=== PATIENT | female | born 1985 | race African-American/Black ===

== ENCOUNTER 2016-04-12 11:25 | Emergency (ER) | payer MEDICAID ==
[~2016-04-12] VITALS: Ht 154.9 cm; Wt 100.3 kg
[~2016-04-12 11:25] MED LIST: ATOR10TA PO; BREX0.5T PO; CEFD300C3 PO; CEFU250T PO; DIAZ2TAB2 PO; DICY10CA12 PO; DICY10CA59 PO; DOCU100C PO; FERR-74 PO; FRS325T PO; GUAI120016 PO; HYDR-3781 PO; LACT1CAP62 PO; LURA80TA3; NITR-65 PO; OMEP-10 PO; OMEP20CA12 PO; OXC5T PO; OXYC-465 PO; RIVA20TA; RT-ALBUINH IH; TIZA2CAP7 PO; VALA1000
--- NOTE | 2016-04-12 12:30 | Diagnostic Imaging Report ---
INDICATION: Right ankle injury, pain. DISCUSSION: Three views of the right ankle were obtained, no comparison. No acute fracture, dislocation, or other osseous abnormality identified. No significant degenerative disease. Alignment is anatomic. Soft tissues are unremarkable. IMPRESSION: 1. Negative right ankle. Dictated by: Dictated on workstation # [id number]
[2016-04-12] MEDS ORDERED: NAPR500T3 PO (12:52)
--- NOTE | 2016-04-12 12:52 | ED Lower Extremity ---
General Chief Complaint: Lower Extremity Stated Complaint: R LEG OINJ Nursing Triage Note: TWISTED R ANKLE TODAY Nursing Sepsis Screen: No Definite Risk Source: patient History of Present Illness Time seen by provider: 12:02 Initial Comments PT STATES SHE TWISTED HER RIGHT ANKLE IMMEDIATELY PRIOR TO ARRIVAL STATS SHE WENT FOR A WALK AND DIDN'T SEE THAT THERE WAS A DITCH/WAS COVERED WITH GRASS, AND STEPPED DOWN AND TWISTED ANKLE NO OTHER INJURIES PT HAS HAD MULTIPLE INJURIES AND SURGERIES TO RIGHT LEG AND HAS FOOT DROP ON THE RIGHT. PCP: DR. NEVAREZ Allergies and Home Medications Allergies Coded Allergies: codeine (Verified Allergy, Severe, ITCHING, HIVES, SOA, 11/03/14) hydrocodone (Verified Allergy, Severe, THROAT SWELLING, PT HAS RECEIVED OXYCODONE IN THE PAST, 12/31/15) latex (Verified Allergy, Severe, BLISTERS, 11/03/14) penicillin (Verified Allergy, Severe, ITCHING, 11/03/14) Sulfa (Sulfonamide Antibiotics) (Verified Allergy, Unknown, RASH, 11/03/14) Home Medications Brexpiprazole 0.5 Mg Tablet #30 0.5 MG PO DAILY Prescribed by: HIEU YAP on 01/01/16 1202 Diazepam 2 Mg Tablet 2 MG PO TID PRN PRN SPASMS (Reported) Dicyclomine HCl 10 Mg Capsule 10 MG PO QID PRN PRN CRAMPS (Reported) Ferrous Sulfate 325 Mg Tablet 650 MG PO DAILY (Reported) TAKES 2 (325 MG) TABLETS Naproxen 500 Mg Tablet #20 500 MG PO BID Prescribed by: JUAN GONZALEZ on 04/12/16 1252 Omeprazole 20 Mg Capsule.dr 20 MG PO DAILY PRN PRN STOMACH UPSET (Reported) Oxycodone HCl/Acetaminophen 1 Each Tablet 1 TAB PO TID (Reported) Constitutional: no symptoms reported Musculoskeletal: see HPI Skin: no symptoms reported Psychiatric/Neurological: See HPI Past Xjnirje-Xbfwiu-Boismc Hx Patient Social History Type Used: Cigarettes Recent Foreign Travel: No Contact w/Someone Who Travel: No Recent Infectious Disease Expo: No Recent Hopitalizations: No Immunizations Up To Date Tetanus Booster (TDap): Less than 5yrs Date of Pneumonia Vaccine: Dec 10, 2014 Seasonal Allergies Seasonal Allergies: No Surgeries HX Surgeries: Yes (RIGHT LWR LEG FX/ORIF & FASCIOTOMY-12 SURG, TUBAL LIGATION, STERILIZATION. 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) Cardiac Disorders: Deep Vein Thrombosis Neurological Hx Neurological Disorders: Yes (2013, ) Neurological Disorders: Headaches /Migraines, Stroke 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 System Hx 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 Disorders: No EDI SPECIALIST History: 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 Genitourinary Hx Genitourinary Disorders: Yes Genitourinary Disorders: Kidney Stones Gastrointestinal Hx Gastrointestinal Disorders: Yes Gastrointestinal Disorders: Colitis Musculoskeletal Hx Musculoskeletal Disorders: Yes (CHRONIC NECK AND BACK PAIN, CHRONIC RIGHT LEG PAIN --RIGHT LEG FX'S WITH RIGHT FOOT DROP ) Musculoskeletal Disorders: Degenerate Disk Disease, Scoliosis, Chronic Back Pain, Fractures Endocrine Hx Endocrine Disorders: Yes Endocrine Disorders: Diabetes, Non-Insulin dep HEENT HX ENT Disorders: Yes ("LEGALLY BLIND" ) Loss of Vision: Bilateral Cancer Hx Cancer: No Psychosocial Hx Psychiatric Problems: No Behavioral Health Disorders: ADD/ADHD, Anxiety, PTSD, Bipolar, Depression Integumentary HX Skin/Integumentary Disorder: No Blood Transfusions Hx Blood Disorders: No Family Medical History Significant Family History: No Pertinent Family Hx Family Medial History: Antiphospholipid syndrome 19 MOTHER Diabetes mellitus 19 FATHER G8 BROTHER FH: aneurysm 19 FATHER FH: lupus 19 MOTHER FHx: congestive heart failure 19 FATHER FHx: renal failure 19 MOTHER Heart murmur 19 MOTHER Lupus anticoagulant disorder 19 MOTHER Patent foramen ovale 19 FATHER Barry syndrome G8 SISTER Physical Exam Vital Signs Vital Sign - Last 12Hours 04/12/16 11:55 Pulse 89 Resp 18 B/P 105/82 Pulse Ox 98 O2 Delivery Room Air Capillary Refill : Less Than 3 Seconds General Appearance: no apparent distress obese Hips: right hip non-tender, right hip normal inspection, right hip normal range of motion, right hip no evidence of injury Legs: right leg non-tender, right leg no evidence of injury Knees: right knee non-tender, right knee normal inspection, right knee normal range of motion, right knee no evidence of injury Ankles: right ankle bone tenderness (TO LATERAL MALLEOLUS AREA. NO SWELLING, BRUISING OR EXTERNAL EVIDENCE OF TRAUMA) Feet: right foot normal inspection Neurologic/Tendon: other (CHRONIC RIGHT FOOT DROP AND MINIMAL ROM OF RIGHT FOOT/ANKLE) Neurologic/Psychiatric: alert normal mood/affect oriented x 3 Skin: normal color warm/dry Progress/Results/Core Measures Results/Orders My Orders Orders-JUAN GONZALEZ DO Ankle, Right, 3 Views (04/12/16 12:03) Oneil Bandage (04/12/16 12:46) Steplite (04/12/16 12:46) Vital Signs/I&O Vital Sign - Last 12Hours 04/12/16 04/12/16 11:55 12:57 Pulse 89 89 Resp 18 18 B/P 105/82 Pulse Ox 98 98 O2 Delivery Room Air Blood Pressure Mean: 90 Diagnostic Imaging Comments XRAYS RIGHT ANKLE--NO ACUTE PROCESS, PER RADIOLOGIST REPORT @ 1245 Reviewed: Reviewed by Me Departure Impression Impression: Primary Impression: Right ankle sprain Disposition: HOME, SELF-CARE Condition: Stable Departure-Patient Inst. Referrals: KADIE NEVAREZ MD (PCP/Family) Primary Care Physician Patient Instructions: Ankle Sprain (DC), SPLINT CARE Add. Discharge Instructions: ONEIL WRAP AND BOOT NEEDED FOR COMFORT ICE TO AREA AT 20 MINUTE INTERVALS ELEVATE FOOT MUCH POSSIBLE FOLLOW UP WITH YOUR DR IN 1 WEEK IF NO BETTER All discharge instructions reviewed with patient and/or family. Voiced understanding. Scripts Naproxen 500 Mg [id number] Mg PO BID #20 TAB Prov:JUAN GONZALEZ DO 04/12/16 JUAN GONZALEZ DO Apr 12, 2016 12:52
[2016-04-12 12:57] VITALS: BP 105/82
== END 2016-04-12 12:57 | disposition home or self-care (01) ==
LOC: EDUNIT# 11:25 → ER 11:27
DX: S93.401A Sprain of unspecified ligament of right ankle, initial encounter (principal); E11.9 Type 2 diabetes mellitus without complications; Z86.718 Personal history of other venous thrombosis and embolism; W17.2XXA Fall into hole, initial encounter; Y99.8 Other external cause status
CPT/HCPCS: 73610

== ENCOUNTER 2016-08-22 21:34 | Emergency (ER) | payer MEDICAID ==
[~2016-08-22] VITALS: Ht 167.6 cm; Wt 113.4 kg
[~2016-08-22 21:34] MED LIST changes: +NAPR500T3 PO
[2016-08-22 21:54] LABS: BILIRUBIN,URINE NEGATIVE (NEGATIVE); KETONES,URINE NEGATIVE (NEGATIVE); LEUKOCYTE ESTERASE ,URINE NEGATIVE (NEGATIVE); NITRITE,URINE NEGATIVE (NEGATIVE); PH,URINE 5 (5-9); PROTEIN,URINE NEGATIVE (NEGATIVE); UROBILINOGEN,URINE NORMAL (NORMAL)
[2016-08-22 21:55] LABS: BASOPHILS # (AUTO) 0.1 10^3/uL (0.0-0.1); BASOPHILS % (AUTO) 1 % (0-10); EOSINOPHILS # (AUTO) 0.4 10^3/uL (0.0-0.3); EOSINOPHILS % (AUTO) 4 % (0-10); LYMPHOCYTES # (AUTO) 4.9 X 10^3 (1.0-4.0); LYMPHOCYTES % (AUTO) 50 % (12-44); MEAN CORPUSCULAR HEMOGLOBIN 24 PG (25-34); MEAN CORPUSCULAR HGB CONC 31 G/DL (32-36); MEAN CORPUSCULAR VOLUME 77 FL (80-99); MEAN PLATELET VOLUME 9.6 FL (7.4-10.4); MONOCYTES # (AUTO) 0.6 X 10^3 (0.0-1.0); MONOCYTES % (AUTO) 6 % (0-12); NEUTROPHILS # (AUTO) 3.8 X 10^3 (1.8-7.8); NEUTROPHILS % (AUTO) 39 % (42-75); PLATELET COUNT 448 10^3/uL (130-400); RED BLOOD COUNT 4.87 10^6/uL (4.35-5.85); RED CELL DISTRIBUTION WIDTH 17.7 % (10.0-14.5); WHITE BLOOD COUNT 9.7 10^3/uL (4.3-11.0)
[2016-08-22] MEDS ORDERED: fentaNYL INJECTION 100 MCG/2 ML AMP IVP ONE (22:00)
--- NOTE | 2016-08-22 22:02 | ED Abdominal Pain ---
General Chief Complaint: Abdominal/GI Problems Stated Complaint: AB PAIN Source of Information: Patient Exam Limitations: No Limitations History of Present Illness Time Seen By Provider: 22:01 Initial Comments To ER with right lower quadrant abdominal pain. About 3 days ago this began in the suprapubic region. Over the course of the past 3 days pain has migrated to the right lower quadrant and is quite severe. Today she was throwing up and while throwing up she landed on the right side of her abdomen is concerned that she may have injured her vena cava filter. She denies fevers or chills. She denies dysuria. She denies diarrhea or constipation. Timing/Duration: 3-4 Days Severity/Quality: Severe Location: RLQ Radiation: No Radiation Activities at Onset: None Associated Symptoms: Denies Symptoms Allergies and Home Medications Allergies Coded Allergies: codeine (Verified Allergy, Severe, ITCHING, HIVES, SOA, 11/03/14) hydrocodone (Verified Allergy, Severe, THROAT SWELLING, PT HAS RECEIVED OXYCODONE IN THE PAST, 12/31/15) latex (Verified Allergy, Severe, BLISTERS, 11/03/14) penicillin (Verified Allergy, Severe, ITCHING, 11/03/14) Sulfa (Sulfonamide Antibiotics) (Verified Allergy, Unknown, RASH, 11/03/14) Home Medications Aspirin 81 Mg Tablet.dr, 81 MG PO DAILY, (Reported) Brexpiprazole 0.5 Mg Tablet, 0.5 MG PO DAILY, (Reported) Dicyclomine HCl 10 Mg Capsule, 10 MG PO QID, (Reported) Docusate Sodium 100 Mg Capsule, 100 MG PO DAILY PRN for CONSTIPATION-1ST LINE, ( Reported) Ferrous Sulfate 325 Mg Tablet, 325 MG PO BID, (Reported) Gabapentin 300 Mg Capsule, 300 MG PO TID, (Reported) Omeprazole 10 Mg Capsule.dr, 10 MG PO DAILY, (Reported) Ondansetron HCl 4 Mg Tab, 4 MG PO DAILY PRN for NAUSEA/VOMITING-1ST LINE, ( Reported) Oxycodone HCl/Acetaminophen 1 Each Tablet, 1 EACH PO Q12H PRN for PAIN-MODERATE TO SEVERE, (Reported) Pregabalin 50 Mg Capsule, 50 MG PO in morning, (Reported) Pregabalin 50 Mg Capsule, 100 MG PO HS, (Reported) Tramadol HCl 50 Mg Tablet, 1-2 TAB PO Q6H PRN for PAIN-MILD TO MODERATE, ( Reported) Review of Systems Constitutional: see HPI EENTM: No Symptoms Reported Respiratory: No Symptoms Reported Cardiovascular: See HPI Gastrointestinal: See HPI, Abdominal Pain, Denies Constipated, Denies Diarrhea , Nausea Genitourinary: No Symptoms Reported, Denies Burning, Denies Discharge, Denies Drainage, Denies Frequency, Denies Flank Pain, Denies Hematuria Musculoskeletal: no symptoms reported Skin: no symptoms reported Psychiatric/Neurological: No Symptoms Reported Endocrine: No Symptoms Reported Past Ybhbkob-Tlrfix-Qpjejq Hx Patient Social History Type Used: Cigarettes Recent Foreign Travel: No Contact w/Someone Who Travel: No Recent Hopitalizations: No Immunizations Up To Date Tetanus Booster (TDap): Less than 5yrs Date of Pneumonia Vaccine: Dec 10, 2014 Seasonal Allergies Seasonal Allergies: No Surgeries HX Surgeries: Yes (RIGHT LWR LEG FX/ORIF & FASCIOTOMY-12 SURG, TUBAL LIGATION, STERILIZATION. 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 Genitourinary Hx Genitourinary Disorders: Yes Genitourinary Disorders: Kidney Stones Gastrointestinal Hx Gastrointestinal Disorders: Yes Gastrointestinal Disorders: Colitis Musculoskeletal Hx Musculoskeletal Disorders: Yes Musculoskeletal Disorders: Degenerate Disk Disease, Scoliosis, Chronic Back Pain, Fractures Endocrine Hx Endocrine Disorders: Yes Endocrine Disorders: Diabetes, Non-Insulin dep HEENT HX ENT Disorders: Yes ("LEGALLY BLIND" ) Loss of Vision: Bilateral Cancer Hx Cancer: No Psychosocial Hx Psychiatric Problems: No Behavioral Health Disorders: ADD/ADHD, Anxiety, PTSD, Bipolar, Depression Integumentary HX Skin/Integumentary Disorder: No Blood Transfusions Hx Blood Disorders: No Family Medical History Significant Family History: No Pertinent Family Hx Family Medial History: Antiphospholipid syndrome 19 MOTHER Diabetes mellitus 19 FATHER G8 BROTHER FH: aneurysm 19 FATHER FH: lupus 19 MOTHER FHx: congestive heart failure 19 FATHER FHx: renal failure 19 MOTHER Heart murmur 19 MOTHER Lupus anticoagulant disorder 19 MOTHER Patent foramen ovale 19 FATHER Barry syndrome G8 SISTER Physical Exam Vital Signs VS - Last 72 Hours, by Label 08/22/16 08/22/16 08/22/16 21:35 22:04 22:47 Temp 98.7 98.6 98.6 Pulse 84 Resp 22 B/P (MAP) 143/94 Pulse Ox 95 O2 Delivery Room Air Capillary Refill : General Appearance: WD/WN, no apparent distress HEENT: PERRL/EOMI, normal ENT inspection Respiratory: no respiratory distress, no accessory muscle use Gastrointestinal: normal bowel sounds, soft, guarding, rebound, tenderness Extremities: normal range of motion, non-tender Neurologic/Psychiatric: alert, normal mood/affect, oriented x 3 Skin: normal color, warm/dry Progress/Results/Core Measures Results/Orders Lab Results Laboratory Tests Test 08/22/16 21:40 Range/Units White Blood Count 9.7 4.3-11.0 10^3/uL Red Blood Count 4.87 4.35-5.85 10^6/uL Hemoglobin 11.7 11.5-16.0 G/DL Hematocrit 38 35-52 % Mean Corpuscular Volume 77 L 80-99 FL Mean Corpuscular Hemoglobin 24 L 25-34 PG Mean Corpuscular Hemoglobin Concent 31 L 32-36 G/DL Red Cell Distribution Width 17.7 H 10.0-14.5 % Platelet Count 448 H 130-400 10^3/uL Mean Platelet Volume 9.6 7.4-10.4 FL Neutrophils (%) (Auto) 39 L 42-75 % Lymphocytes (%) (Auto) 50 H 12-44 % Monocytes (%) (Auto) 6 0-12 % Eosinophils (%) (Auto) 4 0-10 % Basophils (%) (Auto) 1 0-10 % Neutrophils # (Auto) 3.8 1.8-7.8 X 10^3 Lymphocytes # (Auto) 4.9 H 1.0-4.0 X 10^3 Monocytes # (Auto) 0.6 0.0-1.0 X 10^3 Eosinophils # (Auto) 0.4 H 0.0-0.3 10^3/uL Basophils # (Auto) 0.1 0.0-0.1 10^3/uL Urine Color YELLOW Urine Clarity CLEAR Urine pH 5 5-9 Urine Specific Lamar 1.010 L 1.016-1.022 Urine Protein NEGATIVE NEGATIVE Urine Glucose (UA) NEGATIVE NEGATIVE Urine Ketones NEGATIVE NEGATIVE Urine Nitrite NEGATIVE NEGATIVE Urine Bilirubin NEGATIVE NEGATIVE Urine Urobilinogen NORMAL NORMAL MG/DL Urine Leukocyte Esterase NEGATIVE NEGATIVE Urine RBC (Auto) NEGATIVE NEGATIVE Urine RBC NONE /HPF Urine WBC 0-2 /HPF Urine Squamous Epithelial Cells 5-10 /HPF Urine Crystals NONE /LPF Urine Bacteria TRACE /HPF Urine Casts NONE /LPF Urine Mucus NEGATIVE /LPF Urine Culture Indicated NO Sodium Level 138 135-145 MMOL/L Potassium Level 4.6 3.6-5.0 MMOL/L Chloride Level 108 H 98-107 MMOL/L Carbon Dioxide Level 18 L 21-32 MMOL/L Anion Gap 12 5-14 MMOL/L Blood Urea Nitrogen 6 L 7-18 MG/DL Creatinine 0.74 0.60-1.30 MG/DL Estimat Glomerular Filtration Rate > 60 BUN/Creatinine Ratio 8 Glucose Level 94 70-105 MG/DL Calcium Level 9.7 8.5-10.1 MG/DL Total Bilirubin 0.2 0.1-1.0 MG/DL Aspartate Amino Transf (AST/SGOT) 16 5-34 U/L Alanine Aminotransferase (ALT/SGPT) 13 0-55 U/L Alkaline Phosphatase 50 40-136 U/L Total Protein 7.5 6.4-8.2 G/DL Albumin 4.1 3.2-4.5 G/DL Urine Opiates Screen POSITIVE H NEGATIVE Urine Oxycodone Screen POSITIVE H NEGATIVE Urine Methadone Screen NEGATIVE NEGATIVE Urine Propoxyphene Screen NEGATIVE NEGATIVE Urine Barbiturates Screen NEGATIVE NEGATIVE Ur Tricyclic Antidepressants Screen NEGATIVE NEGATIVE Urine Phencyclidine Screen NEGATIVE NEGATIVE Urine Amphetamines Screen NEGATIVE NEGATIVE Urine Methamphetamines Screen NEGATIVE NEGATIVE Urine Benzodiazepines Screen NEGATIVE NEGATIVE Urine Cocaine Screen NEGATIVE NEGATIVE Urine Cannabinoids Screen NEGATIVE NEGATIVE My Orders Orders - LAWRENCE WHITESIDE APRN Cbc With Automated Diff (08/22/16 21:49) Comprehensive Metabolic Panel (08/22/16 21:49) Ua Culture If Indicated (08/22/16 21:49) Urine Bedside (08/22/16 21:49) Saline Lock/Iv-Start (08/22/16 21:49) Ct Abd/Pelv W (Appendicitis) (08/22/16 21:49) Fentanyl Injection (Sublimaze Injection (08/22/16 22:00) Drug Screen Stat (Urine) (08/22/16 22:11) Ketorolac Injection (Toradol Injection) (08/22/16 22:45) Us Pelvic (Non Ob)21412 (08/22/16 23:06) Medications Given in ED Current Medications Medications Dose Ordered Sig/Diomedes Route Start Time Stop Time Status Last Admin Dose Admin Fentanyl Citrate 75 mcg ONCE ONCE IVP 08/22/16 22:00 08/22/16 22:01 DC 08/22/16 22:04 75 MCG Ketorolac Tromethamine 30 mg ONCE ONCE IVP 08/22/16 22:45 08/22/16 22:46 DC 08/22/16 22:47 30 MG Vital Signs/I&O Vital Sign - Last 12Hours 08/22/16 08/22/16 08/22/16 21:35 22:04 22:47 Temp 98.7 98.6 98.6 Pulse 84 Resp 22 B/P (MAP) 143/94 Pulse Ox 95 O2 Delivery Room Air Progress Note : Progress Note 2307-CT scan for abdomen pelvis report from stat rad obtained at 2305. Impression: No evidence of acute appendicitis or other acute abnormality to account for right lower quadrant pain. Subcentimeter hypodense lesion in the inferior aspect of the spleen and possibly a small splenic cyst. Left ovarian follicle. IVC filter. Departure Communication Progress Notes 2308-at this time the patient's pain is rated at 4 out of 10 at big improvement from upon arrival. Last menstrual period was 08/09/16. She denies vaginal bleeding or vaginal discharge. Impression Impression: Primary Impression: nonspecific right lower quadrant abdominal pain Disposition: HOME, SELF-CARE Condition: Stable Departure-Patient Inst. Decision time for Depature: 23:10 Referrals: KADIE NEVAREZ MD (PCP/Family) Primary Care Physician Patient Instructions: Acute Abdomen (Belly Pain), Adult (DC) Add. Discharge Instructions: 1. Return to ER for any worsening or recurrent pain, diarrhea, fevers 2. Follow-up with your doctor next week All discharge instructions reviewed with patient and/or family. Voiced understanding. Work/School Note: Work Release Form Date Seen in the Emergency Department: August 22, 2016 Return to Work: August 24, 2016 LAWRENCE WHITESIDE APRN August 22, 2016 22:02
[2016-08-22 22:11] LABS: WBC,URINE 0-2 /HPF
[2016-08-22 22:14] LABS: ALANINE AMINOTRANSFERASE 13 U/L (0-55); ALBUMIN 4.1 G/DL (3.2-4.5); ANION GAP 12 MMOL/L (5-14); ASPARTATE AMINO TRANSFERASE 16 U/L (5-34); BILIRUBIN,TOTAL 0.2 MG/DL (0.1-1.0); BLOOD UREA NITROGEN 6 MG/DL (7-18); BUN/CREATININE RATIO 8; CALCIUM 9.7 MG/DL (8.5-10.1); CARBON DIOXIDE 18 MMOL/L (21-32); CHLORIDE 108 MMOL/L (98-107); CREATININE SERUM 0.74 MG/DL (0.60-1.30); GFR ESTIMATED > 60; GLUCOSE 94 MG/DL (70-105); POTASSIUM 4.6 MMOL/L (3.6-5.0); SODIUM 138 MMOL/L (135-145); TOTAL PROTEIN 7.5 G/DL (6.4-8.2)
[2016-08-22] MEDS ORDERED: DICY10CA12 PO (22:26)
[2016-08-22] MEDS ORDERED: ONDN4T PO (22:26)
[2016-08-22] MEDS ORDERED: OMEP10CA4 PO (22:26)
[2016-08-22] MEDS ORDERED: BREX0.5T PO (22:26)
[2016-08-22] MEDS ORDERED: GABA-488 PO (22:26)
[2016-08-22] MEDS ORDERED: OXYC-471 PO (22:26)
[2016-08-22] MEDS ORDERED: DOCU-143 PO (22:26)
[2016-08-22] MEDS ORDERED: FERR-74 PO (22:26)
[2016-08-22] MEDS ORDERED: ASPI-983 PO (22:26)
[2016-08-22] MEDS ORDERED: TRAM50TA2 PO (22:26)
[2016-08-22] MEDS ORDERED: PREG50CA2 PO ×2 (22:26)
[2016-08-22] MEDS ORDERED: KETOROLAC 30 MG/ML VIAL IVP ONE (22:45)
[2016-08-23 00:06] VITALS: BP 143/94
--- NOTE | 2016-08-23 08:03 | Diagnostic Imaging Report ---
Indication: Right-sided pelvic pain. Comparison: 10/09/2014. Discussion: Transvaginal sonographic evaluation of the pelvis was performed. The uterus is normal in echotexture and size measuring 8.5 x 5.8 x 4.8 cm. Normal endometrial thickness measuring 1.9 cm. The ovaries appear normal in echotexture and size bilaterally with normal color Doppler blood flow. The right ovary measures 2.9 x 1.9 1.5 cm. The left ovary measures 3.8 x 2.8 x 2.9 cm. Normal follicular activity is present within the ovaries. No abnormal adnexal mass or fluid. Impression: 1. Unremarkable pelvic ultrasound. 2. Agree with preliminary report. Dictated by: Dictated on workstation # [id number]
--- NOTE | 2016-08-23 08:09 | Diagnostic Imaging Report ---
PROCEDURE: CT abdomen and pelvis with contrast, rule out appendicitis. TECHNIQUE: Multiple contiguous axial images were obtained through the abdomen and pelvis after the administration of intravenous contrast. INDICATION: Right lower quadrant pain. CORRELATION STUDY: None. FINDINGS: LOWER THORAX: Clear. LIVER: Unremarkable. GALLBLADDER: Present and unremarkable. No bile duct dilatation. SPLEEN: Subcentimeter hypodensity within the inferior aspect spleen, nonspecific perhaps a small splenic cyst. Spleen otherwise unremarkable. PANCREAS: Unremarkable. ADRENAL GLANDS: Unremarkable. KIDNEYS: Normal configuration. No calcification or obstruction. ABDOMINAL AORTA: Unremarkable, nonaneurysmal. Inferior vena cava filter is present. GASTROINTESTINAL TRACT: No obstruction or inflammation. Normal appendix. URINARY BLADDER: Relatively decompressed. REPRODUCTIVE: Endometrium is slightly prominent. There is a probable left ovarian cyst measuring 2 cm in size. Trace free pelvic fluid. OSSEOUS STRUCTURES: No acute abnormality. IMPRESSION: 1. Negative for acute abnormality of the abdomen or pelvis. Dictated by: Dictated on workstation # [id number]
[2016-08-23] MEDS ORDERED: OXYC-197 PO (16:11)
== END 2016-08-23 00:06 | disposition home or self-care (01) ==
LOC: EDUNIT# 21:34 → ER 21:36
DX: R10.31 Right lower quadrant pain (principal); R11.2 Nausea with vomiting, unspecified; E11.9 Type 2 diabetes mellitus without complications; Z79.82 Long term (current) use of aspirin; Z79.899 Other long term (current) drug therapy; Z86.718 Personal history of other venous thrombosis and embolism; Z87.442 Personal history of urinary calculi; Z95.828 Presence of other vascular implants and grafts
CPT/HCPCS: 36415; 74177; 76830; 80053; 80306; 81000; 84703; 85025; 96374; 96375

== ENCOUNTER 2016-08-23 13:32 | Emergency (ER) | payer MEDICAID ==
[~2016-08-23] VITALS: Ht 154.9 cm; Wt 95.3 kg
[~2016-08-23 13:32] MED LIST changes: +ASPI-983 PO; +DOCU-143 PO; +GABA-488 PO; +OMEP10CA4 PO; +ONDN4T PO; +OXYC-471 PO; +PREG50CA2 PO; +TRAM50TA2 PO
--- NOTE | 2016-08-23 14:24 | ED Abdominal Pain ---
General Chief Complaint: Abdominal/GI Problems Stated Complaint: ABD PAIN Source of Information: Patient Exam Limitations: No Limitations History of Present Illness Time Seen By Provider: 14:22 Initial Comments To ER with persistent right lower quadrant pain radiating to the right flank. This began a few days ago. She was seen here last night for this. She called earlier today and said that the pain was back so I advised her to return to the emergency room. She didn't waiting for 40 minutes in the waiting room due to all of the ER beds being full. This upset her so she went to administration. Nursing staff attempted to call the patient back to the room but she was not found to be in the waiting room. She then returned to the waiting room from administration and was called back to room 9. She reports that she did take the MiraLAX last night as directed without bowel movement. She does have nausea.Seen here last night with unremarkable labs, UA, CT abdomen pelvis and pelvic US. She did take her last Percocet yesterday. She has not been taking her aspirin or her Colace as prescribed. Timing/Duration: 1-2 Days Severity/Quality: Moderate Location: RLQ Radiation: Flank Activities at Onset: None Associated Symptoms: Denies Symptoms Allergies and Home Medications Allergies Coded Allergies: codeine (Verified Allergy, Severe, ITCHING, HIVES, SOA, 11/03/14) hydrocodone (Verified Allergy, Severe, THROAT SWELLING, PT HAS RECEIVED OXYCODONE IN THE PAST, 12/31/15) latex (Verified Allergy, Severe, BLISTERS, 11/03/14) penicillin (Verified Allergy, Severe, ITCHING, 11/03/14) Sulfa (Sulfonamide Antibiotics) (Verified Allergy, Unknown, RASH, 11/03/14) Home Medications Aspirin 81 Mg Tablet.dr, 81 MG PO DAILY, (Reported) Brexpiprazole 0.5 Mg Tablet, 0.5 MG PO DAILY, (Reported) Dicyclomine HCl 10 Mg Capsule, 10 MG PO QID, (Reported) Docusate Sodium 100 Mg Capsule, 100 MG PO DAILY PRN for CONSTIPATION-1ST LINE, ( Reported) Ferrous Sulfate 325 Mg Tablet, 325 MG PO BID, (Reported) Gabapentin 300 Mg Capsule, 300 MG PO TID, (Reported) Omeprazole 10 Mg Capsule.dr, 10 MG PO DAILY, (Reported) Ondansetron HCl 4 Mg Tab, 4 MG PO DAILY PRN for NAUSEA/VOMITING-1ST LINE, ( Reported) Oxycodone HCl/Acetaminophen 1 Each Tablet, 1 EACH PO Q12H PRN for PAIN-MODERATE TO SEVERE, (Reported) Oxycodone HCl/Acetaminophen 1 Each Tablet, 1 EACH PO Q4H PRN for PAIN-MODERATE, #14 Prescribed by: LAWRENCE WHITESIDE on 08/23/16 1611 Pregabalin 50 Mg Capsule, 50 MG PO in morning, (Reported) Pregabalin 50 Mg Capsule, 100 MG PO HS, (Reported) Tramadol HCl 50 Mg Tablet, 1-2 TAB PO Q6H PRN for PAIN-MILD TO MODERATE, ( Reported) Review of Systems Constitutional: see HPI EENTM: No Symptoms Reported Respiratory: No Symptoms Reported Cardiovascular: No Symptoms Reported Gastrointestinal: See HPI, Abdominal Pain Genitourinary: No Symptoms Reported Musculoskeletal: no symptoms reported Skin: no symptoms reported Psychiatric/Neurological: No Symptoms Reported Endocrine: No Symptoms Reported Past Etleehi-Fcwcsm-Sdrwxc Hx Patient Social History Type Used: Cigarettes 2nd Hand Smoke Exposure: Yes Recent Foreign Travel: No Contact w/Someone Who Travel: No Recent Hopitalizations: No Immunizations Up To Date Tetanus Booster (TDap): Less than 5yrs Date of Pneumonia Vaccine: Dec 10, 2014 Seasonal Allergies Seasonal Allergies: No Surgeries HX Surgeries: Yes (RIGHT LWR LEG FX/ORIF & FASCIOTOMY-12 SURG, TUBAL LIGATION, STERILIZATION. 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) Cardiac Disorders: Deep Vein Thrombosis Neurological Hx Neurological Disorders: Yes (2013, ) Neurological Disorders: Headaches /Migraines, Stroke 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 System Hx 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 Disorders: No [employer] History: 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 Genitourinary Hx Genitourinary Disorders: Yes Genitourinary Disorders: Kidney Stones Gastrointestinal Hx Gastrointestinal Disorders: Yes Gastrointestinal Disorders: Colitis Musculoskeletal Hx Musculoskeletal Disorders: Yes Musculoskeletal Disorders: Degenerate Disk Disease, Scoliosis, Chronic Back Pain, Fractures Endocrine Hx Endocrine Disorders: Yes Endocrine Disorders: Diabetes, Non-Insulin dep HEENT HX ENT Disorders: Yes ("LEGALLY BLIND" ) Loss of Vision: Bilateral Cancer Hx Cancer: No Psychosocial Hx Psychiatric Problems: No Behavioral Health Disorders: ADD/ADHD, Anxiety, PTSD, Bipolar, Depression Integumentary HX Skin/Integumentary Disorder: No Blood Transfusions Hx Blood Disorders: No Family Medical History Significant Family History: No Pertinent Family Hx Family Medial History: Antiphospholipid syndrome 19 MOTHER Diabetes mellitus 19 FATHER G8 BROTHER FH: aneurysm 19 FATHER FH: lupus 19 MOTHER FHx: congestive heart failure 19 FATHER FHx: renal failure 19 MOTHER Heart murmur 19 MOTHER Lupus anticoagulant disorder 19 MOTHER Patent foramen ovale 19 FATHER Barry syndrome G8 SISTER Physical Exam Vital Signs VS - Last 72 Hours, by Label 08/23/16 14:22 Temp 98.0 Pulse 108 Resp 22 B/P (MAP) 115/77 Pulse Ox 99 O2 Delivery Room Air Capillary Refill : General Appearance: WD/WN, mild distress (complaining of pain) HEENT: PERRL/EOMI, normal ENT inspection Neck: non-tender, full range of motion Respiratory: normal breath sounds, no respiratory distress, no accessory muscle use Cardiovascular: regular rate, rhythm, no murmur Gastrointestinal: normal bowel sounds, non tender Extremities: normal range of motion, non-tender Neurologic/Psychiatric: alert, normal mood/affect, oriented x 3 Skin: normal color, warm/dry Progress/Results/Core Measures Results/Orders Lab Results Laboratory Tests Test 08/23/16 14:55 08/23/16 15:39 Range/Units White Blood Count 10.3 4.3-11.0 10^3/uL Red Blood Count 4.79 4.35-5.85 10^6/uL Hemoglobin 11.5 11.5-16.0 G/DL Hematocrit 37 35-52 % Mean Corpuscular Volume 77 L 80-99 FL Mean Corpuscular Hemoglobin 24 L 25-34 PG Mean Corpuscular Hemoglobin Concent 31 L 32-36 G/DL Red Cell Distribution Width 17.3 H 10.0-14.5 % Platelet Count 456 H 130-400 10^3/uL Mean Platelet Volume 9.6 7.4-10.4 FL Neutrophils (%) (Auto) 69 42-75 % Lymphocytes (%) (Auto) 23 12-44 % Monocytes (%) (Auto) 5 0-12 % Eosinophils (%) (Auto) 2 0-10 % Basophils (%) (Auto) 0 0-10 % Neutrophils # (Auto) 7.1 1.8-7.8 X 10^3 Lymphocytes # (Auto) 2.4 1.0-4.0 X 10^3 Monocytes # (Auto) 0.6 0.0-1.0 X 10^3 Eosinophils # (Auto) 0.3 0.0-0.3 10^3/uL Basophils # (Auto) 0.0 0.0-0.1 10^3/uL Sodium Level 139 135-145 MMOL/L Potassium Level 4.0 3.6-5.0 MMOL/L Chloride Level 107 98-107 MMOL/L Carbon Dioxide Level 25 21-32 MMOL/L Anion Gap 7 5-14 MMOL/L Blood Urea Nitrogen 8 7-18 MG/DL Creatinine 0.75 0.60-1.30 MG/DL Estimat Glomerular Filtration Rate > 60 BUN/Creatinine Ratio 11 Glucose Level 90 70-105 MG/DL Calcium Level 9.6 8.5-10.1 MG/DL Total Bilirubin 0.2 0.1-1.0 MG/DL Aspartate Amino Transf (AST/SGOT) 12 5-34 U/L Alanine Aminotransferase (ALT/SGPT) 11 0-55 U/L Alkaline Phosphatase 50 40-136 U/L C-Reactive Protein High Sensitivity 1.27 H 0.00-0.50 MG/DL Total Protein 7.4 6.4-8.2 G/DL Albumin 4.1 3.2-4.5 G/DL Urine Color YELLOW Urine Clarity CLEAR Urine pH 6 5-9 Urine Specific [place] 1.020 1.016-1.022 Urine Protein NEGATIVE NEGATIVE Urine Glucose (UA) NEGATIVE NEGATIVE Urine Ketones 1+ H NEGATIVE Urine Nitrite NEGATIVE NEGATIVE Urine Bilirubin NEGATIVE NEGATIVE Urine Urobilinogen NORMAL NORMAL MG/DL Urine Leukocyte Esterase 1+ H NEGATIVE Urine RBC (Auto) NEGATIVE NEGATIVE Urine RBC NONE /HPF Urine WBC 0-2 /HPF Urine Squamous Epithelial Cells 5-10 /HPF Urine Crystals NONE /LPF Urine Bacteria TRACE /HPF Urine Casts NONE /LPF Urine Mucus SMALL H /LPF Urine Culture Indicated NO Urine Opiates Screen NEGATIVE NEGATIVE Urine Oxycodone Screen NEGATIVE NEGATIVE Urine Methadone Screen NEGATIVE NEGATIVE Urine Propoxyphene Screen NEGATIVE NEGATIVE Urine Barbiturates Screen NEGATIVE NEGATIVE Ur Tricyclic Antidepressants Screen NEGATIVE NEGATIVE Urine Phencyclidine Screen NEGATIVE NEGATIVE Urine Amphetamines Screen NEGATIVE NEGATIVE Urine Methamphetamines Screen NEGATIVE NEGATIVE Urine Benzodiazepines Screen NEGATIVE NEGATIVE Urine Cocaine Screen NEGATIVE NEGATIVE Urine Cannabinoids Screen NEGATIVE NEGATIVE My Orders Orders - LAWRENCE WHITESIDE MARGARINE MAKER Cbc With Automated Diff (5/15/17 13:40) Saline Lock/Iv-Start (08/23/16 14:24) Comprehensive Metabolic Panel (08/23/16 14:24) Ua Culture If Indicated (08/23/16 14:25) Fentanyl Injection (Sublimaze Injection (08/23/16 14:30) Drug Screen Stat (Urine) (08/23/16 14:38) Ns Iv 1000 Ml (Sodium Chloride 0.9%) (08/23/16 15:00) Hs C Reactive Protein (08/23/16 15:08) Ketorolac Injection (Toradol Injection) (08/23/16 15:45) Medications Given in ED Current Medications Medications Dose Ordered Sig/Diomedes Route Start Time Stop Time Status Last Admin Dose Admin Fentanyl Citrate 75 mcg ONCE ONCE IVP 08/23/16 14:30 08/23/16 14:31 DC 08/23/16 15:02 75 MCG Ketorolac Tromethamine 30 mg ONCE ONCE IVP 08/23/16 15:45 08/23/16 15:46 DC 08/23/16 16:13 30 MG Vital Signs/I&O Vital Sign - Last 12Hours 08/23/16 14:22 Temp 98.0 Pulse 108 Resp 22 B/P (MAP) 115/77 Pulse Ox 99 O2 Delivery Room Air Departure Impression Impression: Primary Impression: RLQ abdominal pain Disposition: 01 HOME, SELF-CARE Condition: Improved Departure-Patient Inst. Decision time for Depature: 16:10 Referrals: KADIE NEVAREZ MD (PCP/Family) Primary Care Physician Patient Instructions: No Instuctions Given Add. Discharge Instructions: 1. Follow-up with [facility] 2. Return to ER for any concerns such as worsening pain or fevers 3. MiraLAX twice today, 3 times tomorrow then twice daily until bowel movement and then you may stop it and replace it with a Colace daily. All discharge instructions reviewed with patient and/or family. Voiced understanding. Scripts Oxycodone HCl/Acetaminophen (Percocet 5-325 mg Tablet) 1 Each Tablet 1 EACH PO Q4H Y for PAIN-MODERATE, #14 TAB Prov: LAWRENCE WHITESIDE APRN 08/23/16 LAWRENCE WHITESIDE APRN August 23, 2016 14:24
[2016-08-23] MEDS ORDERED: fentaNYL INJECTION 100 MCG/2 ML AMP IVP ONE (14:30)
[2016-08-23] MEDS ORDERED: NS IV 1000 ML 1,000 ML IV SCH (15:00)
[2016-08-23 15:01] LABS: BASOPHILS % (AUTO) 0 % (0-10); EOSINOPHILS # (AUTO) 0.3 10^3/uL (0.0-0.3); EOSINOPHILS % (AUTO) 2 % (0-10); LYMPHOCYTES # (AUTO) 2.4 X 10^3 (1.0-4.0); LYMPHOCYTES % (AUTO) 23 % (12-44); MEAN CORPUSCULAR HEMOGLOBIN 24 PG (25-34); MEAN CORPUSCULAR HGB CONC 31 G/DL (32-36); MEAN CORPUSCULAR VOLUME 77 FL (80-99); MEAN PLATELET VOLUME 9.6 FL (7.4-10.4); MONOCYTES # (AUTO) 0.6 X 10^3 (0.0-1.0); MONOCYTES % (AUTO) 5 % (0-12); NEUTROPHILS # (AUTO) 7.1 X 10^3 (1.8-7.8); NEUTROPHILS % (AUTO) 69 % (42-75); PLATELET COUNT 456 10^3/uL (130-400); RED BLOOD COUNT 4.79 10^6/uL (4.35-5.85); RED CELL DISTRIBUTION WIDTH 17.3 % (10.0-14.5); WHITE BLOOD COUNT 10.3 10^3/uL (4.3-11.0)
[2016-08-23 15:23] LABS: ALANINE AMINOTRANSFERASE 11 U/L (0-55); ALBUMIN 4.1 G/DL (3.2-4.5); ANION GAP 7 MMOL/L (5-14); ASPARTATE AMINO TRANSFERASE 12 U/L (5-34); BILIRUBIN,TOTAL 0.2 MG/DL (0.1-1.0); BLOOD UREA NITROGEN 8 MG/DL (7-18); BUN/CREATININE RATIO 11; CALCIUM 9.6 MG/DL (8.5-10.1); CARBON DIOXIDE 25 MMOL/L (21-32); CHLORIDE 107 MMOL/L (98-107); CREATININE SERUM 0.75 MG/DL (0.60-1.30); GFR ESTIMATED > 60; GLUCOSE 90 MG/DL (70-105); SODIUM 139 MMOL/L (135-145); TOTAL PROTEIN 7.4 G/DL (6.4-8.2)
[2016-08-23] MEDS ORDERED: KETOROLAC 30 MG/ML VIAL IVP ONE (15:45)
[2016-08-23 16:04] LABS: BILIRUBIN,URINE NEGATIVE (NEGATIVE); KETONES,URINE 1+ (NEGATIVE); LEUKOCYTE ESTERASE ,URINE 1+ (NEGATIVE); NITRITE,URINE NEGATIVE (NEGATIVE); PH,URINE 6 (5-9); PROTEIN,URINE NEGATIVE (NEGATIVE); UROBILINOGEN,URINE NORMAL (NORMAL)
[2016-08-23 16:05] LABS: WBC,URINE 0-2 /HPF
[2016-08-23] MEDS ORDERED: OXYC-197 PO (16:11)
[2016-08-23 16:43] VITALS: BP 133/85
== END 2016-08-23 16:55 | disposition home or self-care (01) ==
LOC: EDUNIT# 13:32 → ER 13:34
DX: R10.31 Right lower quadrant pain (principal); E11.9 Type 2 diabetes mellitus without complications; Z79.82 Long term (current) use of aspirin; Z79.899 Other long term (current) drug therapy; Z86.718 Personal history of other venous thrombosis and embolism
CPT/HCPCS: 36415; 80053; 80306; 81000; 85025; 86141; 96361; 96374; 96375

== ENCOUNTER 2016-11-22 15:15 | Emergency (ER) | payer MEDICAID ==
[~2016-11-22] VITALS: Ht 154.9 cm; Wt 93.0 kg
[~2016-11-22 15:15] MED LIST changes: +OXYC-197 PO
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
--- NOTE | 2016-11-22 16:25 | Diagnostic Imaging Report ---
INDICATION: Right knee injury. FINDINGS: Three views of right knee show postop changes from prior internal fixation of the proximal tibia with plate and screws. There is also deformity of the fibular head from an old healed fracture. The femur appears normal. The knee joint space is well maintained. There is no acute fracture, dislocation or pathologic effusion. IMPRESSION: Old healed fracture of the proximal tibia and fibula. No acute abnormality is seen. Dictated by: Dictated on workstation # [id number]
[2016-11-22] MEDS ORDERED: OXYC-197 PO (16:47)
--- NOTE | 2016-11-22 16:59 | Diagnostic Imaging Report ---
INDICATION: Right tib-fib pain. FINDINGS: AP and lateral views of the right lower leg are obtained. Comparison is made to the study of 03/29/2015. There has been open reduction and internal fixation of previously identified lateral tibial plateau fracture. There is continued mild joint surface offset involving both medial and lateral tibial plateaus. No definite new fracture line is identified. There is no significant joint fluid appreciated. IMPRESSION: Joint surface irregularity involving the proximal tibia secondary to old injury. No new fracture line or orthopedic hardware complication is identified; however, consideration could be given to cross-sectional imaging if pain continues. Dictated by: Dictated on workstation # [id number]
[2016-11-22 17:00] VITALS: BP 107/75
== END 2016-11-22 17:00 | disposition home or self-care (01) ==
LOC: EDUNIT# 15:15 → ER 15:18
DX: M25.561 Pain in right knee (principal); J45.909 Unspecified asthma, uncomplicated; E11.9 Type 2 diabetes mellitus without complications; F90.9 Attention-deficit hyperactivity disorder, unspecified type; M54.9 Dorsalgia, unspecified; G89.29 Other chronic pain; F41.9 Anxiety disorder, unspecified; F43.10 Post-traumatic stress disorder, unspecified; G43.909 Migraine, unspecified, not intractable, without status migrainosus; F31.9 Bipolar disorder, unspecified; F17.210 Nicotine dependence, cigarettes, uncomplicated; Z82.49 Family history of ischemic heart disease and other diseases of the circulatory system; Z86.73 Personal history of transient ischemic attack (TIA), and cerebral infarction without residual deficits; Z95.828 Presence of other vascular implants and grafts; Z86.718 Personal history of other venous thrombosis and embolism; Z98.51 Tubal ligation status; Z79.82 Long term (current) use of aspirin; W51.XXXA Accidental striking against or bumped into by another person, initial encounter
CPT/HCPCS: 73562; 73590; 99283

== ENCOUNTER 2017-01-25 20:49 | Emergency (ER) | payer MEDICAID ==
[~2017-01-25] VITALS: Ht 154.9 cm; Wt 89.8 kg
--- OUTSIDE RECORDS SUMMARY | 2017-01-25 20:55 | XMS REPORT ---
Author Author KADIE NEVAREZ [facility] Address [address] [place] [address] Care Team Providers Care Frame Feeder Name Role Phone KADIE NEVAREZ Unavailable PROBLEMS Type Condition ICD9-CM Code ZQR03-SL Code Onset Dates Condition Status SNOMED Code Problem PFO (patent foramen ovale) Q21.1 Active 394945807 Problem Gastroesophageal reflux disease, esophagitis presence not specified K21.9 Active 038972913 Problem Iron deficiency anemia, unspecified iron deficiency anemia type D50.9 Active 01242425 Problem History of stroke Z86.73 Active 113745944 Problem Lumbar degenerative disc disease M51.36 Active 31408125 Problem Menorrhagia with regular cycle N92.0 Active 295253645 Problem Dyslipidemia E78.5 Active 056806662 Problem Anxiety associated with depression F41.8 Active 395845934 Problem Irregular periods N92.6 Active 36110036 Problem Herpes simplex B00.9 Active 51064002 Problem Bipolar 2 disorder F31.81 Active 21424131 Problem Social anxiety disorder F40.10 Active 50418210 Problem Pure hypercholesterolemia E78.00 Active 489052948 Problem Chronic post-traumatic stress disorder F43.12 Active 770750490 Problem Prediabetes R73.09 Active 980580767 Problem Irritable bowel syndrome without diarrhea K58.9 Active 88450770 Problem Scoliosis, unspecified M41.9 Active 481877744 Problem Foot drop, right M21.371 Active 2690226 Problem Constipation K59.00 Active 76096112 Problem Acute stress reaction with predominately emotional disturbance F43.9 Active 17819771 Problem Chronic pain due to trauma G89.21 Active 449382295 Problem Chronic prescription opiate use Z79.899 Active 027230422 Problem Fibrocystic breast, left N60.12 Active 23826791 Problem Muscle spasm of back M62.830 Active 061569170 Problem 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 Active 467105134 Problem Fibrocystic breast, right N60.11 Active 90781853 Problem History of ovarian cyst Z87.42 Active 389673786 Problem History of nipple discharge Z87.898 Active 034868661 Problem History of chest pain Z87.898 Active 196361277 ALLERGIES Unknown Allergies SOCIAL HISTORY No smoking Hx information available PLAN OF CARE VITAL SIGNS MEDICATIONS Medication Instructions Dosage Frequency Start Date End Date Duration Status Zofran ODT 4 MG Orally every 8 hours as needed for nausea 1 tablet on the tongue and allow to dissolve Dec, Active RESULTS No Results PROCEDURES No Known procedures IMMUNIZATIONS No Known Immunizations
--- OUTSIDE RECORDS SUMMARY | 2017-01-25 20:56 | XMS REPORT ---
Author Author DARCY RITTER Organization [facility] Address [address] [place] [address] Care Team Providers Care Yardage Estimator Name Role Phone DARCY RITTER Unavailable PROBLEMS Type Condition ICD9-CM Code [id number] Code Onset Dates Condition Status SNOMED Code Problem PFO (patent foramen ovale) Q21.1 Active 097688516 Problem Gastroesophageal reflux disease, esophagitis presence not specified K21.9 Active 243666399 Problem Iron deficiency anemia, unspecified iron deficiency anemia type D50.9 Active 70770569 Problem History of stroke Z86.73 Active 737185116 Problem Lumbar degenerative disc disease M51.36 Active 47244486 Problem Menorrhagia with regular cycle N92.0 Active 327955253 Problem Dyslipidemia E78.5 Active 925432135 Problem Anxiety associated with depression F41.8 Active 492871805 Problem Irregular periods N92.6 Active 67921542 Problem Herpes simplex B00.9 Active 73182155 Problem Bipolar 2 disorder F31.81 Active 65379652 Problem Social anxiety disorder F40.10 Active 06824631 Problem Pure hypercholesterolemia E78.00 Active 625952060 Problem Chronic post-traumatic stress disorder F43.12 Active 079870509 Problem Prediabetes R73.09 Active 128515541 Problem Irritable bowel syndrome without diarrhea K58.9 Active 74628697 Problem Scoliosis, unspecified M41.9 Active 746034044 Problem Foot drop, right M21.371 Active 8631569 Problem Constipation K59.00 Active 99325481 Problem Acute stress reaction with predominately emotional disturbance F43.9 Active 65547453 Problem Chronic pain due to trauma G89.21 Active 788868734 Problem Chronic prescription opiate use Z79.899 Active 298745142 Problem Fibrocystic breast, left N60.12 Active 94047203 Problem Muscle spasm of back M62.830 Active 780138620 Problem 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 Active 169961717 Problem Fibrocystic breast, right N60.11 Active 87284415 Problem History of ovarian cyst Z87.42 Active 589871155 Problem History of nipple discharge Z87.898 Active 937918244 Problem History of chest pain Z87.898 Active 496483481 ALLERGIES Substance Reaction Event Type Date Status Latex Gloves blisters and welts Drug Allergy Apr, Active SulfADIAZINE Rash Drug Allergy Apr, Active Penicillamine Hives. Throat itches Drug Allergy Apr, Active [place] throat swelling Drug Allergy Apr, Active Codeine Sulfate body felt like it was on fire. Blisters on Body Drug Allergy Apr, Active SOCIAL HISTORY Never Assessed PLAN OF CARE Activity Details Follow Up 6 Weeks Reason: VITAL SIGNS Height 65.2 in 2016-05-11 Weight 218.0 lbs 2016-05-11 Heart Rate 100 bpm 2016-05-11 Respiratory Rate 20 2016-05-11 BMI 36.05 kg/m2 2016-05-11 Blood pressure systolic 126 mmHg 2016-05-11 Blood pressure diastolic 81 mmHg 2016-05-11 MEDICATIONS Medication Instructions Dosage Frequency Start Date End Date Duration Status Aspirin 81 MG Orally Once a day 1 tablet 24h Jan, Active Dicyclomine HCl 10 mg Orally Four times a day 1 capsule as needed 6h 90 days Active Zofran ODT 4 MG Orally every 8 hours as needed for nausea 1 tablet on the tongue and allow to dissolve Dec, Active Rexulti 0.5 MG Orally Once a day 1 tablet 24h Active Lyrica 75 MG Orally Twice a day 1 capsule 12h Jan, 90 days Active Ferrous Sulfate 325 (65 Fe) MG Orally Once a day 2 tablets 24h Sep, Active Colace 100 MG Orally Twice a day 1 capsule as needed 12h Active Omeprazole 20 mg Orally Once a day 1 capsule 24h August, 90 days Active Oxycodone-Acetaminophen 10-325 MG Orally 2 times a day 1 tablet 12h Feb 13 days Active Trazodone HCl 50 mg Orally for sleep Take 1/2 to 1 tablet at bedtime as needed Apr, Active RESULTS No Results PROCEDURES No Known procedures IMMUNIZATIONS No Known Immunizations MEDICAL (GENERAL) HISTORY Type Description Date Medical History scoliosis Medical History stroke Medical History anemia Medical History irritable bowel syndrome Medical History PFO Medical History Hyperlipidemia Medical History Degenerative disc disease, lumbar Medical History Irritable bowel syndrome Medical History Hx of blood clot Medical History PTSD (post-traumatic stress disorder) Surgical History tubal ligation Surgical History salpingectomy Surgical History Fasciatomy 03/2015 Surgical History [place] filter placement 03/2015 Surgical History Right leg Tibia, Fibula fracture repair- rods/pins placement 03/2015 Hospitalization History Right leg fracture 03/2015 Hospitalization History Suicide attempt, depression, anxiety--[facility] 12/31/15
--- OUTSIDE RECORDS SUMMARY | 2017-01-25 20:56 | XMS REPORT ---
Author Author DARCY RITTER Organization [facility] Address [address] [place] [address] Care Team Providers Care Sports Marketer Name Role Phone DARCY RITTER Unavailable PROBLEMS Type Condition ICD9-CM Code [id number] Code Onset Dates Condition Status SNOMED Code Problem PFO (patent foramen ovale) Q21.1 Active 692472093 Problem Gastroesophageal reflux disease, esophagitis presence not specified K21.9 Active 384042999 Problem Iron deficiency anemia, unspecified iron deficiency anemia type D50.9 Active 91379705 Problem History of stroke Z86.73 Active 110018944 Problem Lumbar degenerative disc disease M51.36 Active 61542333 Problem Menorrhagia with regular cycle N92.0 Active 645856938 Problem Dyslipidemia E78.5 Active 279279439 Problem Anxiety associated with depression F41.8 Active 473956461 Problem Irregular periods N92.6 Active 25045797 Problem Herpes simplex B00.9 Active 47409773 Problem Bipolar 2 disorder F31.81 Active 50491211 Problem Social anxiety disorder F40.10 Active 27602248 Problem Pure hypercholesterolemia E78.00 Active 067138944 Problem Chronic post-traumatic stress disorder F43.12 Active 878810105 Problem Prediabetes R73.09 Active 851547601 Problem Irritable bowel syndrome without diarrhea K58.9 Active 67822917 Problem Scoliosis, unspecified M41.9 Active 011977145 Problem Foot drop, right M21.371 Active 6940795 Problem Constipation K59.00 Active 44360997 Problem Acute stress reaction with predominately emotional disturbance F43.9 Active 63128997 Problem Chronic pain due to trauma G89.21 Active 279645325 Problem Chronic prescription opiate use Z79.899 Active 658699034 Problem Fibrocystic breast, left N60.12 Active 75281985 Problem Muscle spasm of back M62.830 Active 572392893 Problem 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 Active 053653239 Problem Fibrocystic breast, right N60.11 Active 22544956 Problem History of ovarian cyst Z87.42 Active 517668342 Problem History of nipple discharge Z87.898 Active 546620112 Problem History of chest pain Z87.898 Active 808734849 ALLERGIES Substance Reaction Event Type Date Status Latex Gloves blisters and welts Drug Allergy May, Active SulfADIAZINE Rash Drug Allergy May, Active Penicillamine Hives. Throat itches Drug Allergy May, Active [place] throat swelling Drug Allergy May, Active Codeine Sulfate body felt like it was on fire. Blisters on Body Drug Allergy May, Active SOCIAL HISTORY Never Assessed PLAN OF CARE Activity Details Follow Up 2 Months Reason: VITAL SIGNS Height 65.2 in 2016-06-08 Weight 214.6 lbs 2016-06-08 Heart Rate 96 bpm 2016-06-08 Respiratory Rate 20 2016-06-08 BMI 35.49 kg/m2 2016-06-08 Blood pressure systolic 123 mmHg 2016-06-08 Blood pressure diastolic 75 mmHg 2016-06-08 MEDICATIONS Medication Instructions Dosage Frequency Start Date End Date Duration Status Trazodone HCl 100 mg Orally Take 30 minutes prior to actual bedtime for sleep 1 tablet at bedtime Apr, Active Aspirin 81 MG Orally Once a day 1 tablet 24h Jan, Active Rexulti 1 MG Orally Once a day for mood 1 tablet Active Dicyclomine HCl 10 mg Orally Four times a day 1 capsule as needed 6h 90 days Active Ferrous Sulfate 325 (65 Fe) MG Orally Once a day 2 tablets 24h 23 Sep, 2014 Active Oxycodone-Acetaminophen 10-325 MG Orally 2 times a day 1 tablet 12h Feb 13 days Active Lyrica 75 MG Orally Twice a day 1 capsule 12h Jan, 90 days Active Colace 100 MG Orally Twice a day 1 capsule as needed 12h Active Zofran ODT 4 MG Orally every 8 hours as needed for nausea 1 tablet on the tongue and allow to dissolve Dec, Active Omeprazole 20 mg Orally Once a day 1 capsule 24h 15 Aug, 2014 90 days Active RESULTS No Results PROCEDURES No Known [...] salpingectomy Surgical History Fasciatomy 03/2015 Surgical History [place] filter placement 03/2015 Surgical History Right leg Tibia, Fibula fracture repair- rods/pins placement 03/2015 Hospitalization History Right leg fracture 03/2015 Hospitalization History Suicide attempt, depression, anxiety--[facility] 12/31/15
--- OUTSIDE RECORDS SUMMARY | 2017-01-25 20:58 | XMS REPORT ---
Author Author KADIE NEVAREZ [facility] Address [address] [place] [address] Care Team Providers Care Senior Biostatistician Name Role Phone KADIE NEVAREZ Unavailable PROBLEMS Type Condition ICD9-CM Code [id number]-DS Code Onset Dates Condition Status SNOMED Code Problem PFO (patent foramen ovale) Q21.1 Active 272938758 Problem Gastroesophageal reflux disease, esophagitis presence not specified K21.9 Active 935852018 Problem Iron deficiency anemia, unspecified iron deficiency anemia type D50.9 Active 95523221 Problem History of stroke Z86.73 Active 558637345 Problem Lumbar degenerative disc disease M51.36 Active 35722410 Problem Menorrhagia with regular cycle N92.0 Active 922544544 Problem Dyslipidemia E78.5 Active 347359937 Problem Anxiety associated with depression F41.8 Active 562581166 Problem Irregular periods N92.6 Active 83921741 Problem Herpes simplex B00.9 Active 66651377 Problem Bipolar 2 disorder F31.81 Active 85837646 Problem Social anxiety disorder F40.10 Active 09004479 Problem Pure hypercholesterolemia E78.00 Active 472156524 Problem Chronic post-traumatic stress disorder F43.12 Active 934292366 Problem Prediabetes R73.09 Active 250098203 Problem Irritable bowel syndrome without diarrhea K58.9 Active 65127910 Problem Scoliosis, unspecified M41.9 Active 679201355 Problem Foot drop, right M21.371 Active 0605860 Problem Constipation K59.00 Active 11249410 Problem Acute stress reaction with predominately emotional disturbance F43.9 Active 76791347 Problem Chronic pain due to trauma G89.21 Active 583392759 Problem Chronic prescription opiate use Z79.899 Active 790465555 Problem Fibrocystic breast, left N60.12 Active 87411042 Problem Muscle spasm of back M62.830 Active 457678528 Problem 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 Active 819811049 Problem Fibrocystic breast, right N60.11 Active 54656224 Problem History of ovarian cyst Z87.42 Active 024360574 Problem History of nipple discharge Z87.898 Active 327412385 Problem History of chest pain Z87.898 Active 297120253 ALLERGIES No Information SOCIAL HISTORY Never Assessed PLAN OF CARE VITAL SIGNS MEDICATIONS Unknown Medications RESULTS No Results PROCEDURES No Known procedures [...] fracture 03/2015 Hospitalization History Suicide attempt, depression, anxiety--[facility] 12/31/15
--- OUTSIDE RECORDS SUMMARY | 2017-01-25 20:58 | XMS REPORT ---
Author Author KADIE NEVAREZ [facility] Address [address] [place] [address] Care Team Providers Care Liquor Rectifier Name Role Phone KADIE NEVAREZ Unavailable PROBLEMS Type Condition ICD9-CM Code IAL27-UR Code Onset Dates Condition Status SNOMED Code Problem Irregular periods N92.6 Active 21495820 Problem Lumbar degenerative disc disease M51.36 Active 81817005 Problem Gastroesophageal reflux disease, esophagitis presence not specified K21.9 Active 835913338 Problem Irritable bowel syndrome without diarrhea K58.9 Active 44567421 Problem PFO (patent foramen ovale) Q21.1 Active 011610146 Problem Herpes simplex B00.9 Active 16644582 Problem History of stroke Z86.73 Active 294723820 Problem History of ovarian cyst Z87.42 Active 454148239 Problem Scoliosis, unspecified M41.9 Active 473603350 Problem History of nipple discharge Z87.898 Active 453259831 Problem Bipolar 2 disorder F31.81 Active 80244700 Problem Social anxiety disorder F40.10 Active 43064210 Problem Pure hypercholesterolemia E78.00 Active 023174181 Problem Chronic post-traumatic stress disorder F43.12 Active 311838845 Problem Dyslipidemia E78.5 Active 154246758 Problem Prediabetes R73.09 Active 471602649 Problem Iron deficiency anemia, unspecified iron deficiency anemia type D50.9 Active 43771730 Problem Foot drop, right M21.371 Active 1856563 Problem Constipation K59.00 Active 08629672 Problem Acute stress reaction with predominately emotional disturbance F43.9 Active 92097667 Problem Chronic pain due to trauma G89.21 Active 784958664 Problem Muscle spasm of back M62.830 Active 105530652 Problem Fibrocystic breast, right N60.11 Active 39398224 Problem 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 Active 896836138 Problem Chronic prescription opiate use Z79.899 Active 255601972 Problem Anxiety associated with depression F41.8 Active 830555127 Problem Menorrhagia with regular cycle N92.0 Active 545846245 Problem Fibrocystic breast, left N60.12 Active 97471347 Problem History of chest pain Z87.898 Active 657694104 ALLERGIES Substance Reaction Event Type Date Status Latex Gloves blisters and welts Drug Allergy Mar, Active SulfADIAZINE Rash Drug Allergy Mar, Active Penicillamine Hives. Throat itches Drug Allergy Mar, Active [place] throat swelling Drug Allergy Mar, Active Codeine Sulfate body felt like it was on fire. Blisters on Body Drug Allergy Mar, Active SOCIAL HISTORY No smoking Hx information available PLAN OF CARE Activity Details Follow Up 3 Months Reason:Chronic pain VITAL SIGNS Height 65.2 in 2016-03-24 Weight 217.8 lbs 2016-03-24 Temperature 97.8 degrees Fahrenheit 2016-03-24 Heart Rate 88 bpm 2016-03-24 Respiratory Rate 22 2016-03-24 BMI 36.02 kg/m2 2016-03-24 Blood pressure systolic 138 mmHg 2016-03-24 Blood pressure diastolic 84 mmHg 2016-03-24 MEDICATIONS Medication Instructions Dosage Frequency Start Date End Date Duration Status Colace 100 MG Orally Twice a day 1 capsule as needed 12h Active Propranolol HCl 10 mg Orally in the morning and bedtime for panic 1 tablet Dec, Active Rexulti 0.5 MG Orally Once a day 1 tablet 24h Active Brexpiprazole 0.5 MG Orally Once a day 1 tablet 24h Dec, Active Azithromycin 250 MG Orally Once a day 2 tablets on the first day, then 1 tablet daily for 4 days 24h Mar, Mar, 5 day(s) Active Aspirin 81 MG Orally Once a day 1 tablet 24h Jan, Active Omeprazole 20 mg Orally Once a day 1 capsule 24h August, 90 days Active Dicyclomine HCl 10 mg Orally Four times a day 1 capsule as needed 6h 90 days Active Zofran ODT 4 MG Orally every 8 hours as needed for nausea 1 tablet on the tongue and allow to dissolve Dec, Active Ferrous Sulfate 325 (65 Fe) MG Orally Once a day 2 tablets 24h 23 Sep, 2014 Active Oxycodone-Acetaminophen 10-325 MG Orally 2 times a day 1 tablet 12h Feb Active Lyrica 75 MG Orally Twice a day 1 capsule 12h 04 Jan, 2016 90 days Active RESULTS Name Result Date Reference Range INFLUENZA A & B (IN HOUSE) 2016-03-24 INFLUENZA A Negative INFLUENZA B Negative Control + Lot # [id number] Exp date MONO TEST (IN HOUSE) 2016-03-24 RESULTS Negative Control + Lot # [id number] Exp date STREP A (IN HOUSE) 2016-03-24 STREP A Negative Control + Lot # [id number] Exp date [id number] PROCEDURES Procedure Date Ordered Related Diagnosis Body Site HETEROPHILE ANTIBODIES Mar 24, 2016 STREP A ASSAY W/OPTIC Mar 24, 2016 Office Visit, Est Pt., Level 3 Mar 24, 2016 INFLUENZA ASSAY W/OPTIC Mar 24, 2016 IMMUNIZATIONS No Known Immunizations
--- OUTSIDE RECORDS SUMMARY | 2017-01-25 20:59 | XMS REPORT ---
Author Author KADIE NEVAREZ [facility] Address [address] [place] [address] Care Team Providers Care Tuyere Fitter Name Role Phone KADIE NEVAREZ Unavailable PROBLEMS Type Condition ICD9-CM Code JDW57-CA Code Onset Dates Condition Status SNOMED Code Problem PFO (patent foramen ovale) Q21.1 Active 879964989 Problem Gastroesophageal reflux disease, esophagitis presence not specified K21.9 Active 331740469 Problem Iron deficiency anemia, unspecified iron deficiency anemia type D50.9 Active 66458049 Problem History of stroke Z86.73 Active 504120529 Problem Lumbar degenerative disc disease M51.36 Active 58529390 Problem Menorrhagia with regular cycle N92.0 Active 660905602 Problem Dyslipidemia E78.5 Active 338282877 Problem Anxiety associated with depression F41.8 Active 911844807 Problem Irregular periods N92.6 Active 10091471 Problem Herpes simplex B00.9 Active 71767724 Problem Bipolar 2 disorder F31.81 Active 67297311 Problem Social anxiety disorder F40.10 Active 15978581 Problem Pure hypercholesterolemia E78.00 Active 301975680 Problem Chronic post-traumatic stress disorder F43.12 Active 003710117 Problem Prediabetes R73.09 Active 607910108 Problem Irritable bowel syndrome without diarrhea K58.9 Active 06974131 Problem Scoliosis, unspecified M41.9 Active 626852947 Problem Foot drop, right M21.371 Active 8384849 Problem Constipation K59.00 Active 37896786 Problem Acute stress reaction with predominately emotional disturbance F43.9 Active 41027423 Problem Chronic pain due to trauma G89.21 Active 134317145 Problem Chronic prescription opiate use Z79.899 Active 369971508 Problem Fibrocystic breast, left N60.12 Active 66116762 Problem Muscle spasm of back M62.830 Active 996040160 Problem 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 Active 453602162 Problem Fibrocystic breast, right N60.11 Active 23880206 Problem History of ovarian cyst Z87.42 Active 257851094 Problem History of nipple discharge Z87.898 Active 502623832 Problem History of chest pain Z87.898 Active 865533974 ALLERGIES No Information SOCIAL HISTORY Never Assessed [...] fracture 03/2015 Hospitalization History Suicide attempt, depression, anxiety--[facility] 12/31/15
--- OUTSIDE RECORDS SUMMARY | 2017-01-25 21:00 | XMS REPORT ---
Author Author KADIE NEVAREZ [facility] Address [address] [place] [address] Care Team Providers Care Software Tools Developer Name Role Phone KADIE NEVAREZ Unavailable PROBLEMS Type Condition ICD9-CM Code JDO96-FC Code Onset Dates Condition Status SNOMED Code Problem PFO (patent foramen ovale) Q21.1 Active 725570268 Problem Gastroesophageal reflux disease, esophagitis presence not specified K21.9 Active 608116200 Problem Iron deficiency anemia, unspecified iron deficiency anemia type D50.9 Active 14840151 Problem History of stroke Z86.73 Active 507815567 Problem Lumbar degenerative disc disease M51.36 Active 18750252 Problem Menorrhagia with regular cycle N92.0 Active 474533652 Problem Dyslipidemia E78.5 Active 152017759 Problem Anxiety associated with depression F41.8 Active 053589188 Problem Irregular periods N92.6 Active 93691526 Problem Herpes simplex B00.9 Active 16982522 Problem Bipolar 2 disorder F31.81 Active 72993768 Problem Social anxiety disorder F40.10 Active 86235020 Problem Pure hypercholesterolemia E78.00 Active 756351990 Problem Chronic post-traumatic stress disorder F43.12 Active 482771809 Problem Prediabetes R73.09 Active 940930294 Problem Irritable bowel syndrome without diarrhea K58.9 Active 54130040 Problem Scoliosis, unspecified M41.9 Active 651184702 Problem Foot drop, right M21.371 Active 8094235 Problem Constipation K59.00 Active 77349372 Problem Acute stress reaction with predominately emotional disturbance F43.9 Active 82308325 Problem Chronic pain due to trauma G89.21 Active 576635709 Problem Chronic prescription opiate use Z79.899 Active 874009080 Problem Fibrocystic breast, left N60.12 Active 13323744 Problem Muscle spasm of back M62.830 Active 463297816 Problem 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 Active 005054798 Problem Fibrocystic breast, right N60.11 Active 27445151 Problem History of ovarian cyst Z87.42 Active 070343468 Problem History of nipple discharge Z87.898 Active 666565565 Problem History of chest pain Z87.898 Active 163273866 ALLERGIES Unknown Allergies SOCIAL HISTORY No smoking Hx information available PLAN OF CARE VITAL SIGNS MEDICATIONS Medication Instructions Dosage Frequency Start Date End Date Duration Status Oxycodone-Acetaminophen 10-325 MG Orally 2 times a day 1 tablet 12h 18 Feb 13 days Active RESULTS No Results PROCEDURES No Known procedures IMMUNIZATIONS No Known Immunizations
--- OUTSIDE RECORDS SUMMARY | 2017-01-25 21:02 | XMS REPORT | Continuity of Care Document ---
Author Author [facility] Organization [facility] Address Unknown Phone Unavailable Allergies Active Description Code Type Severity Reaction Onset Reported/Identified Relationship to Patient Clinical Status Yes codeine [id number] Drug Allergy Severe ITCHING, HIVES, 11/03/2014 Yes latex [id number] Drug Allergy Severe BLISTERS 11/03/2014 Yes penicillin [id number] Drug Allergy Severe ITCHING 11/03/2014 Yes Sulfa (Sulfonamide Antibiotics) [id number] Drug Allergy Unknown RASH 11/03/2014 Yes latex latex Drug Allergy Unknown UNKNOWN 03/29/2015 Yes Penicillins Penicillins Drug Allergy Unknown UNKNOWN 03/29/2015 Yes Sulfa (Sulfonamide Antibiotics) Sulfa (Sulfonamide Antibiotics) Drug Allergy Unknown UNKNOWN 03/29/2015 Yes acetaminophen acetaminophen Drug Allergy Moderate THROAT SWELLING 03/30/2015 Yes CODEINE SULFATE CODEINE SULFATE Drug Allergy Moderate BODY FELT LIKE ON FIRE, BLISTERS 03/30/2015 Yes hydrocodone hydrocodone Drug Allergy Moderate THROAT SWELLING 04/15/2015 Yes latex latex Drug Allergy Moderate BLISTERS AND WELTS 04/15/2015 Yes Penicillins Penicillins Drug Allergy Moderate HIVES, THROAT ITCHES 04/15/2015 Yes Sulfa (Sulfonamide Antibiotics) Sulfa (Sulfonamide Antibiotics) Drug Allergy Mild RASH 2015 Yes acetaminophen [id number] Drug Allergy Severe THROAT SWELLING 12/31/2015 Yes hydrocodone [id number] Drug Allergy Severe THROAT SWELLING 12/31/2015 Medications Problems Date Dx Coded Attending Type Code Diagnosis Diagnosed By 10/28/2014 KADIE NEVAREZ MD Ot 620.2 10/28/2014 KADIE NEVAREZ MD Ot 626.4 11/03/2014 ASHLEY OBRIEN MD Ot 786.50 11/03/2014 ASHLEY OBRIEN MD Ot V12.54 12/24/2014 KADIE NEVAREZ MD Ot 620.2 12/24/2014 KADIE NEVAREZ MD Ot 626.4 01/08/2015 NWAGWU, ISIDORE O EMPLOYMENT CONSULTANT Ot 745.5 SECUNDUM ATRIAL SEPT DEF 01/08/2015 NWAGWU, ISIDORE O EMPLOYMENT CONSULTANT Ot 780.4 DIZZINESS AND GIDDINESS 01/08/2015 NWAGWU, ISIDORE O EMPLOYMENT CONSULTANT Ot 780.79 OTH MALAISE FATIGUE 01/08/2015 NWAGWU, ISIDORE O EMPLOYMENT CONSULTANT Ot 785.1 PALPITATIONS 01/08/2015 NWAGWU, ISIDORE O EMPLOYMENT CONSULTANT Ot 786.50 CHEST PAIN NOS 01/08/2015 NWAGWU, ISIDORE O EMPLOYMENT CONSULTANT Ot V12.54 PERSONAL HX OF TIA, CEREBRAL INFARCTION 01/25/2015 LAWRENCE WHITESIDE EMPLOYMENT CONSULTANT Ot E11.9 TYPE 2 DIABETES MELLITUS WITHOUT COMPLIC 01/25/2015 LAWRENCE WHITESIDE EMPLOYMENT CONSULTANT Ot N39.0 URINARY TRACT INFECTION, SITE NOT SPECIF 01/25/2015 LAWRENCE WHITESIDE EMPLOYMENT CONSULTANT Ot R06.02 SHORTNESS OF BREATH 02/04/2015 NWAGWU, ISIDORE O EMPLOYMENT CONSULTANT Ot 745.5 02/04/2015 NWAGWU, ISIDORE O EMPLOYMENT CONSULTANT Ot 780.4 02/04/2015 NWAGWU, ISIDORE O EMPLOYMENT CONSULTANT Ot 780.79 02/04/2015 NWAGWU, ISIDORE O EMPLOYMENT CONSULTANT Ot 785.1 02/04/2015 NWAGWU, ISIDORE O EMPLOYMENT CONSULTANT Ot 786.50 02/04/2015 NWAGWU, ISIDORE O EMPLOYMENT CONSULTANT Ot V12.54 02/21/2015 JARED FISCHER, KENYATTA Andrews Ot D64.9 02/21/2015 JARED FISCHER, KENYATTA Andrews Ot E11.9 02/21/2015 JARED FISCHER, KENYATTA Andrews Ot E66.9 02/21/2015 JARED FISCHER, KENYATTA Andrews Ot F17.210 02/21/2015 JARED FISCHER, KENYATTA Andrews Ot I51.9 02/21/2015 JARED FISCHER, KENYATTA Andrews Ot M54.5 02/21/2015 JARED FISCHER, KENYATTA Andrews Ot Z79.899 02/21/2015 JARED FISCHER, KENYATTA Andrews Ot Z86.73 03/13/2015 GERI FISCHER, KADIE Richardson Ot R40.4 03/25/2015 KADIE NEVAREZ MD Ot R40.4 03/29/2015 NWAGWU, ISIDORE O EMPLOYMENT CONSULTANT Ot 745.5 03/29/2015 NWAGWU, ISIDORE O EMPLOYMENT CONSULTANT Ot 780.4 03/29/2015 NWAGWU, ISIDORE O EMPLOYMENT CONSULTANT Ot 780.79 03/29/2015 NWAGWU, ISIDORE O EMPLOYMENT CONSULTANT Ot 785.1 03/29/2015 NWAGWU, ISIDORE O EMPLOYMENT CONSULTANT Ot 786.50 03/29/2015 NWAGWU, ISIDORE O EMPLOYMENT CONSULTANT Ot V12.54 03/29/2015 EAGLE FISCHER, VALERIA Pagan Ot M23.91 UNSPECIFIED INTERNAL DERANGEMENT OF RIGH 03/29/2015 Sonya Lopes MD D62 ACUTE POSTHEMORRHAGIC ANEMIA 03/29/2015 Sonya Lopes MD D69.6 THROMBOCYTOPENIA, UNSPECIFIED 03/29/2015 Sonya Lopes MD E11.9 TYPE 2 DIABETES MELLITUS WITHOUT COMPLICATIONS 03/29/2015 Sonya Lopes MD E66.01 MORBID (SEVERE) OBESITY DUE TO EXCESS CALORIES 03/29/2015 Sonya Lopes MD E87.6 HYPOKALEMIA 03/29/2015 Sonya Lopes MD F17.210 NICOTINE DEPENDENCE, CIGARETTES, UNCOMPLICATED 03/29/2015 Sonya Lopes MD F31.9 BIPOLAR DISORDER, UNSPECIFIED 03/29/2015 Sonya Lopes MD G89.29 OTHER CHRONIC PAIN 03/29/2015 Sonya Lopes MD H54.8 LEGAL BLINDNESS, DEFINED IN [place] 03/29/2015 Sonya Lopes MD 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 03/29/2015 Sonya Lopes MD I69.398 OTHER SEQUELAE OF CEREBRAL INFARCTION 03/29/2015 Sonya Lopes MD I82.411 ACUTE EMBOLISM AND THROMBOSIS OF RIGHT FEMORAL VEI 03/29/2015 Sonya Lopes MD K21.9 GASTRO-ESOPHAGEAL REFLUX DISEASE WITHOUT ESOPHAGIT 03/29/2015 Sonya Lopes MD K58.9 IRRITABLE BOWEL SYNDROME WITHOUT DIARRHEA 03/29/2015 Sonya Lopes MD K59.00 CONSTIPATION, UNSPECIFIED 03/29/2015 Marianne FISCHER, Sonya Potts M41.9 SCOLIOSIS, UNSPECIFIED 03/29/2015 Marianne FISCHER, Sonya Potts S82.141A DISPLACED BICONDYLAR FRACTURE OF RIGHT TIBIA, INIT 03/29/2015 Marianne FISCHER, Sonya Potts 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, IN 03/29/2015 Marianne FISCHER, Sonya Potts W17.89XA OTHER FALL FROM ONE LEVEL TO ANOTHER , INITIAL ENCO 03/29/2015 Marianne FISCHER, Sonya Potts Z79.82 COMPOSITION FLOOR LAYER (CURRENT) USE OF ASPIRIN 03/31/2015 EAGLE FISCHER, VALERIA Pagan Ot M23.91 04/01/2015 VALERIA GUILLERMO MD Ot M23.91 05/05/2015 JARED FISCHER, KENYATTA Andrews Ot D64.9 ANEMIA, UNSPECIFIED 05/05/2015 JARED FISCHER, KENYATTA Andrews Ot E11.9 TYPE 2 DIABETES MELLITUS WITHOUT COMPLIC 05/05/2015 JARED FISCHER, KENYATTA Andrews Ot E66.9 OBESITY, UNSPECIFIED 05/05/2015 JARED FISCHER, KENYATTA Andrews Ot F17.210 NICOTINE DEPENDENCE, CIGARETTES, UNCOMPL 05/05/2015 JARED FISCHER, KENYATTA Andrews Ot I51.9 HEART DISEASE, UNSPECIFIED 05/05/2015 JARED FISCHER, KENYATTA Andrews Ot M54.5 LOW BACK PAIN 05/05/2015 JARED FISCHER, KENYATTA Andrews Ot Z79.899 OTHER HALF-WAY (CURRENT) DRUG THERAPY 05/05/2015 JARED FISCHER, KENYATTA Andrews Ot Z86.73 PRSNL HX OF TIA (TIA), AND CEREB INFRC W 09/17/2015 LISA JOSE HURTADOA K Ot F17.210 NICOTINE DEPENDENCE, CIGARETTES, UNCOMPL 09/17/2015 LISA DO JUAN K Ot N39.0 URINARY TRACT INFECTION, SITE NOT SPECIF 09/17/2015 LISA DO JUAN K Ot R20.2 PARESTHESIA OF SKIN 09/17/2015 LISA DO JUAN K Ot R51 HEADACHE 09/18/2015 LISA DO JUAN K Ot F17.210 NICOTINE DEPENDENCE, CIGARETTES, UNCOMPL 09/18/2015 LISA DO JUAN K Ot N39.0 URINARY TRACT INFECTION, SITE NOT SPECIF 09/18/2015 LISA DO JUAN K Ot R20.2 PARESTHESIA OF SKIN 09/18/2015 JUAN GONZALEZ DO Darryl Ot R51 HEADACHE 09/21/2015 SANTINO LOPEZ MD, Ot Z53.21 PROC/TRTMT NOT CRD OUT D/T PT LV BEF SEE 09/23/2015 SANTINO LOPEZ MD, Ot Z53.21 PROC/TRTMT NOT CRD OUT D/T PT LV BEF SEE 10/03/2015 SANTINO LOPEZ MD, Ot Z53.21 PROC/TRTMT NOT CRD OUT D/T PT LV BEF SEE 10/17/2015 NWAGWU, ISIDORE O EMPLOYMENT CONSULTANT Ot 745.5 10/17/2015 NWAGWU, ISIDORE O EMPLOYMENT CONSULTANT Ot 780.4 10/17/2015 NWAGWU, ISIDORE O EMPLOYMENT CONSULTANT Ot 780.79 10/17/2015 NWAGWU, ISIDORE O EMPLOYMENT CONSULTANT Ot 785.1 10/17/2015 NWAGWU, ISIDORE O EMPLOYMENT CONSULTANT Ot 786.50 10/17/2015 NWAGWU, ISIDORE O EMPLOYMENT CONSULTANT Ot V12.54 10/17/2015 KADIE NEVAREZ MD Ot R40.4 TRANSIENT ALTERATION OF AWARENESS 10/17/2015 KENYATTA COLEMAN MD Ot D64.9 ANEMIA, UNSPECIFIED 10/17/2015 KENYATTA COLEMAN MD Ot E11.9 TYPE 2 DIABETES MELLITUS WITHOUT COMPLIC 10/17/2015 KENYATTA COLEMAN MD Ot E66.9 OBESITY, UNSPECIFIED 10/17/2015 KENYATTA COLEMAN MD Ot F17.210 NICOTINE DEPENDENCE, CIGARETTES, UNCOMPL 10/17/2015 KENYATTA COLEMAN MD Ot I51.9 HEART DISEASE, UNSPECIFIED 10/17/2015 KENYATTA COLEMAN MD Ot M54.5 LOW BACK PAIN 10/17/2015 KENYATTA COLEMAN MD Ot Z79.899 OTHER COMPOSITION FLOOR LAYER (CURRENT) DRUG THERAPY 10/17/2015 KENYATTA COLEMAN MD Ot Z86.73 PRSNL HX OF TIA (TIA), AND CEREB INFRC W 10/17/2015 SANTINO LOPEZ MD Ot Z53.21 PROC/TRTMT NOT CRD OUT D/T PT LV BEF SEE 10/21/2015 KADIE NEVAREZ MD Ot R16.1 SPLENOMEGALY, NOT ELSEWHERE CLASSIFIED 10/21/2015 KADIE NEVAREZ MD Ot R16.1 SPLENOMEGALY, NOT ELSEWHERE CLASSIFIED 10/28/2015 KADIE NEVAREZ MD Ot R16.1 SPLENOMEGALY, NOT ELSEWHERE CLASSIFIED 11/20/2015 LAWRENCE WHITESIDE EMPLOYMENT CONSULTANT Ot J06.9 ACUTE UPPER RESPIRATORY INFECTION, UNSPE 11/20/2015 LAWRENCE WHITESIDE EMPLOYMENT CONSULTANT Ot J40 BRONCHITIS, NOT SPECIFIED ACUTE OR CH 11/20/2015 LAWRENCE WHITESIDE EMPLOYMENT CONSULTANT Ot R05 COUGH 11/24/2015 LAWRENCE WHITESIDE EMPLOYMENT CONSULTANT Ot J06.9 ACUTE UPPER RESPIRATORY INFECTION, UNSPE 11/24/2015 LAWRENCE WHITESIDE EMPLOYMENT CONSULTANT Ot J40 BRONCHITIS, NOT SPECIFIED ACUTE OR CH 11/24/2015 LAWRENCE WHITESIDE EMPLOYMENT CONSULTANT Ot R05 COUGH 12/31/2015 NWAGWU, ISIDORE O EMPLOYMENT CONSULTANT Ot 745.5 12/31/2015 NWAGWU, ISIDORE O EMPLOYMENT CONSULTANT Ot 780.4 12/31/2015 NWAGWU, ISIDORE O EMPLOYMENT CONSULTANT Ot 780.79 12/31/2015 NWAGWU, ISIDORE O EMPLOYMENT CONSULTANT Ot 785.1 12/31/2015 NWAGWU, ISIDORE O EMPLOYMENT CONSULTANT Ot 786.50 12/31/2015 NWAGWU, ISIDORE O EMPLOYMENT CONSULTANT Ot V12.54 12/31/2015 KADIE NEVAREZ MD Ot R40.4 TRANSIENT ALTERATION OF AWARENESS 12/31/2015 KENYATTA COLEMAN MD Ot D64.9 ANEMIA, UNSPECIFIED 12/31/2015 KENYATTA COLEMAN MD Ot E11.9 TYPE 2 DIABETES MELLITUS WITHOUT COMPLIC 12/31/2015 KENYATTA COLEMAN MD Ot E66.9 OBESITY, UNSPECIFIED 12/31/2015 KENYATTA COLEMAN MD Ot F17.210 NICOTINE DEPENDENCE, CIGARETTES, UNCOMPL 12/31/2015 KENYATTA COLEMAN MD Ot I51.9 HEART DISEASE, UNSPECIFIED 12/31/2015 KENYATTA COLEMAN MD Ot M54.5 LOW BACK PAIN 12/31/2015 KENYATTA COLEMAN MD Ot Z79.899 OTHER COMPOSITION FLOOR LAYER (CURRENT) DRUG THERAPY 12/31/2015 KENYATTA COLEMAN MD Ot Z86.73 PRSNL HX OF TIA (TIA), AND CEREB INFRC W 12/31/2015 KADIE NEVAREZ MD Ot R16.1 SPLENOMEGALY, NOT ELSEWHERE CLASSIFIED 12/31/2015 NWAGWU, ISIDORE O EMPLOYMENT CONSULTANT Ot 745.5 12/31/2015 NWAGWU, ISIDORE O EMPLOYMENT CONSULTANT Ot 780.4 12/31/2015 NWAGWU, ISIDORE O EMPLOYMENT CONSULTANT Ot 780.79 12/31/2015 NWAGWU, ISIDORE O EMPLOYMENT CONSULTANT Ot 785.1 12/31/2015 NWAGWU, ISIDORE O EMPLOYMENT CONSULTANT Ot 786.50 12/31/2015 NWAGWU, ISIDORE O EMPLOYMENT CONSULTANT Ot V12.54 12/31/2015 KENYATTA OCLEMAN MD Ot D64.9 ANEMIA, UNSPECIFIED 12/31/2015 KENYATTA COLEMAN MD Ot E11.9 TYPE 2 DIABETES MELLITUS WITHOUT COMPLIC 12/31/2015 KENYATTA COLEMAN MD Ot E66.9 OBESITY, UNSPECIFIED 12/31/2015 KENYATTA COLEMAN MD Ot F17.210 NICOTINE DEPENDENCE, CIGARETTES, UNCOMPL 12/31/2015 KENYATTA COLEMAN MD Ot I51.9 HEART DISEASE, UNSPECIFIED 12/31/2015 KENYATTA COLEMAN MD Ot M54.5 LOW BACK PAIN 12/31/2015 KENYATTA COLEMAN MD Ot Z79.899 OTHER COMPOSITION FLOOR LAYER (CURRENT) DRUG THERAPY 12/31/2015 KENYATTA COLEMAN MD Ot Z86.73 PRSNL HX OF TIA (TIA), AND CEREB INFRC W 12/31/2015 NWAGWU, ISIDORE O EMPLOYMENT CONSULTANT Ot 745.5 12/31/2015 NWAGWU, ISIDORE O EMPLOYMENT CONSULTANT Ot 780.4 12/31/2015 NWAGWU, ISIDORE O EMPLOYMENT CONSULTANT Ot 780.79 12/31/2015 NWAGWU, ISIDORE O EMPLOYMENT CONSULTANT Ot 785.1 12/31/2015 NWAGWU, ISIDORE O EMPLOYMENT CONSULTANT Ot 786.50 12/31/2015 NWAGWU, ISIDORE O EMPLOYMENT CONSULTANT Ot V12.54 12/31/2015 KENYATTA COLEMAN MD Ot D64.9 ANEMIA, UNSPECIFIED 12/31/2015 KENYATTA COLEMAN MD Ot E11.9 TYPE 2 DIABETES MELLITUS WITHOUT COMPLIC 12/31/2015 KENYATTA COLEMAN MD Ot E66.9 OBESITY, UNSPECIFIED 12/31/2015 KENYATTA COLEMAN MD Ot F17.210 NICOTINE DEPENDENCE, CIGARETTES, UNCOMPL 12/31/2015 KENYATTA COLEMAN MD Ot I51.9 HEART DISEASE, UNSPECIFIED 12/31/2015 KENYATTA COLEMAN MD Ot M54.5 LOW BACK PAIN 12/31/2015 KENYATTA COLEMAN MD Ot Z79.899 OTHER HALF-WAY (CURRENT) DRUG THERAPY 12/31/2015 KENYATTA COLEMAN MD Ot Z86.73 PRSNL HX OF TIA (TIA), AND CEREB INFRC W 01/01/2016 HIEU HINOJOSA MD Ot E11.9 TYPE 2 DIABETES MELLITUS WITHOUT COMPLIC 01/01/2016 HIEU HINOJOSA MD Ot E86.9 VOLUME DEPLETION, UNSPECIFIED 01/01/2016 HIEU HINOJOSA MD Ot F17.210 NICOTINE DEPENDENCE, CIGARETTES, UNCOMPL 01/01/2016 HIEU HINOJOSA MD, Ot F31.9 BIPOLAR DISORDER, UNSPECIFIED 01/01/2016 HIEU HINOJOSA MD, Ot F41.9 ANXIETY DISORDER, UNSPECIFIED 01/01/2016 HIEU HINOJOSA MD Ot R40.0 SOMNOLENCE 01/01/2016 HIEU HINOJOSA MD, Ot T43.592A POISONING BY OTH ANTIPSYCHOT/NEUROLEPT , 01/01/2016 HIEU HINOJOSA MD Ot Z79.899 OTHER HALF-WAY (CURRENT) DRUG THERAPY 01/01/2016 HIEU HINOJOSA MD, Ot Z86.718 PERSONAL HISTORY OF OTHER VENOUS THROMBO 01/01/2016 HIEU HINOJOSA MD, Ot E11.9 TYPE 2 DIABETES MELLITUS WITHOUT COMPLIC 01/01/2016 HIEU HINOJOSA MD, Ot E86.9 VOLUME DEPLETION, UNSPECIFIED 01/01/2016 HIEU HINOJOSA MD Ot F17.210 NICOTINE DEPENDENCE, CIGARETTES, UNCOMPL 01/01/2016 HIEU HINOJOSA MD, Ot F31.9 BIPOLAR DISORDER, UNSPECIFIED 01/01/2016 HIEU HINOJOSA MD, Ot F41.9 ANXIETY DISORDER, UNSPECIFIED 01/01/2016 HIEU HINOJOSA MD Ot R40.0 SOMNOLENCE 01/01/2016 HIEU HINOJOSA MD Ot T43.592A POISONING BY OTH ANTIPSYCHOT/NEUROLEPT , 01/01/2016 HIEU HINOJOSA MD, Ot Z79.899 OTHER HALF-WAY (CURRENT) DRUG THERAPY 01/01/2016 HIEU HINOJOSA MD, Ot Z86.718 PERSONAL HISTORY OF OTHER VENOUS THROMBO 01/02/2016 NWAGWU, ISIDORE O EMPLOYMENT CONSULTANT Ot 745.5 01/02/2016 NWAGWU, ISIDORE O EMPLOYMENT CONSULTANT Ot 780.4 01/02/2016 NWAGWU, ISIDORE O EMPLOYMENT CONSULTANT Ot 780.79 01/02/2016 NWAGWU, ISIDORE O EMPLOYMENT CONSULTANT Ot 785.1 01/02/2016 NWAGWU, ISIDORE O EMPLOYMENT CONSULTANT Ot 786.50 01/02/2016 NWAGWU, ISIDORE O EMPLOYMENT CONSULTANT Ot V12.54 01/02/2016 KADIE NEVAREZ MD Ot R40.4 TRANSIENT ALTERATION OF AWARENESS 01/02/2016 KENYATTA COLEMAN MD Ot D64.9 ANEMIA, UNSPECIFIED 01/02/2016 KENYATTA COLEMAN MD Ot E11.9 TYPE 2 DIABETES MELLITUS WITHOUT COMPLIC 01/02/2016 KENYATTA COLEMAN MD Ot E66.9 OBESITY, UNSPECIFIED 01/02/2016 KENYATTA COLEMAN MD Ot F17.210 NICOTINE DEPENDENCE, CIGARETTES, UNCOMPL 01/02/2016 KENYATTA COLEMAN MD Ot I51.9 HEART DISEASE, UNSPECIFIED 01/02/2016 KENYATTA COLEMAN MD Ot M54.5 LOW BACK PAIN 01/02/2016 KENYATTA COLEMAN MD Ot Z79.899 OTHER COMPOSITION FLOOR LAYER (CURRENT) DRUG THERAPY 01/02/2016 KENYATTA COLEMAN MD Ot Z86.73 PRSNL HX OF TIA (TIA), AND CEREB INFRC W 01/02/2016 GERI FISCHER, KADIE Richardson Ot R16.1 SPLENOMEGALY, NOT ELSEWHERE CLASSIFIED 04/12/2016 NWAGWU, ISIDORE O EMPLOYMENT CONSULTANT Ot 745.5 04/12/2016 NWAGWU, ISIDORE O EMPLOYMENT CONSULTANT Ot 780.4 04/12/2016 NWAGWU, ISIDORE O EMPLOYMENT CONSULTANT Ot 780.79 04/12/2016 NWAGWU, ISIDORE O EMPLOYMENT CONSULTANT Ot 785.1 04/12/2016 NWAGWU, ISIDORE O EMPLOYMENT CONSULTANT Ot 786.50 04/12/2016 NWAGWU, ISIDORE O EMPLOYMENT CONSULTANT Ot V12.54 04/12/2016 KADIE NEVAREZ MD Ot R40.4 TRANSIENT ALTERATION OF AWARENESS 04/12/2016 KENYATTA COLEMAN MD Ot D64.9 ANEMIA, UNSPECIFIED 04/12/2016 KENYATTA COLEMAN MD Ot E11.9 TYPE 2 DIABETES MELLITUS WITHOUT COMPLIC 04/12/2016 KENYATTA COLEMAN MD Ot E66.9 OBESITY, UNSPECIFIED 04/12/2016 KENYATTA COLEMAN MD Ot F17.210 NICOTINE DEPENDENCE, CIGARETTES, UNCOMPL 04/12/2016 KENYATTA COLEMAN MD Ot I51.9 HEART DISEASE, UNSPECIFIED 04/12/2016 KENYATTA COLEMAN MD Ot M54.5 LOW BACK PAIN 04/12/2016 KENYATTA COLEMAN MD Ot Z79.899 OTHER COMPOSITION FLOOR LAYER (CURRENT) DRUG THERAPY 04/12/2016 KENYATTA COLEMAN MD Ot Z86.73 PRSNL HX OF TIA (TIA), AND CEREB INFRC W 04/12/2016 GERI FISCHER, KADIE Richardson Ot R16.1 SPLENOMEGALY, NOT ELSEWHERE CLASSIFIED 04/14/2016 JUAN GONZALEZ DO Ot E11.9 TYPE 2 DIABETES MELLITUS WITHOUT COMPLIC 04/14/2016 LISA HURTADO JUAN K Ot S93.401A SPRAIN OF UNSPECIFIED LIGAMENT OF RIGHT 04/14/2016 LISA JUAN K Ot S99.911A UNSPECIFIED INJURY OF RIGHT ANKLE, INITI 04/14/2016 LISA JUAN Darryl Ot W17.2XXA FALL INTO HOLE, INITIAL ENCOUNTER 04/14/2016 LISA JUAN Daryrl Ot Y99.8 OTHER EXTERNAL CAUSE STATUS 04/14/2016 LISA JUAN Darryl Ot Z86.718 PERSONAL HISTORY OF OTHER VENOUS THROMBO 04/23/2016 JUAN GONZALEZ DO Ot E11.9 TYPE 2 DIABETES MELLITUS WITHOUT COMPLIC 04/23/2016 LISA HURTADO JUAN Darryl Ot S93.401A SPRAIN OF UNSPECIFIED LIGAMENT OF RIGHT 04/23/2016 LISA JUAN Darryl Ot S99.911A UNSPECIFIED INJURY OF RIGHT ANKLE, INITI 04/23/2016 LISA JUAN K Ot W17.2XXA FALL INTO HOLE, INITIAL ENCOUNTER 04/23/2016 LISA JUAN Darryl Ot Y99.8 OTHER EXTERNAL CAUSE STATUS 04/23/2016 LISA JUAN Darryl Ot Z86.718 PERSONAL HISTORY OF OTHER VENOUS THROMBO 08/23/2016 Ot E11.9 TYPE 2 DIABETES MELLITUS WITHOUT COMPLIC 08/23/2016 Ot R10.31 RIGHT LOWER QUADRANT PAIN 08/23/2016 Ot R11.2 NAUSEA WITH VOMITING, UNSPECIFIED 08/23/2016 Ot Z79.82 COMPOSITION FLOOR LAYER (CURRENT) USE OF ASPIRIN 08/23/2016 Ot Z79.899 OTHER COMPOSITION FLOOR LAYER (CURRENT) DRUG THERAPY 08/23/2016 Ot Z86.718 PERSONAL HISTORY OF OTHER VENOUS THROMBO 08/23/2016 Ot Z87.442 PERSONAL HISTORY OF URINARY CALCULI 08/23/2016 Ot Z95.828 PRESENCE OF OTHER VASCULAR IMPLANTS AND 08/23/2016 LAWRENCE WHITESIDE EMPLOYMENT CONSULTANT Ot E11.9 TYPE 2 DIABETES MELLITUS WITHOUT COMPLIC 08/23/2016 LAWRENCE WHITESIDE EMPLOYMENT CONSULTANT Ot R10.31 RIGHT LOWER QUADRANT PAIN 08/23/2016 LAWRENCE WHITESIDE APRN Ot Z79.82 HALF-WAY (CURRENT) USE OF ASPIRIN 08/23/2016 LAWRENCE WHITESIDE APRN Ot Z79.899 OTHER HALF-WAY (CURRENT) DRUG THERAPY 08/23/2016 LAWRENCE WHITESIDE APRN Ot Z86.718 PERSONAL HISTORY OF OTHER VENOUS THROMBO 08/24/2016 LAWRENCE WHITESIDE EMPLOYMENT CONSULTANT Ot E11.9 TYPE 2 DIABETES MELLITUS WITHOUT COMPLIC 08/24/2016 LAWRENCE WHITESIDE EMPLOYMENT CONSULTANT Ot R10.31 RIGHT LOWER QUADRANT PAIN 08/24/2016 LAWRENCE WHITESIDE APRN Ot Z79.82 COMPOSITION FLOOR LAYER (CURRENT) USE OF ASPIRIN 08/24/2016 LAWRENCE WHITESIDE APRN Ot Z79.899 OTHER COMPOSITION FLOOR LAYER (CURRENT) DRUG THERAPY 08/24/2016 LAWRENCE WHITESIDE APRN Ot Z86.718 PERSONAL HISTORY OF OTHER VENOUS THROMBO 08/25/2016 LAWRENCE WHITESIDE APRN Ot E11.9 TYPE 2 DIABETES MELLITUS WITHOUT COMPLIC 08/25/2016 LAWRENCE WHITESIDE APRN Ot R10.31 RIGHT LOWER QUADRANT PAIN 08/25/2016 LAWRENCE WHITESIDE APRN Ot Z79.82 HALF-WAY (CURRENT) USE OF ASPIRIN 08/25/2016 LAWRENCE WHITESIDE EMPLOYMENT CONSULTANT Ot Z79.899 OTHER COMPOSITION FLOOR LAYER (CURRENT) DRUG THERAPY 08/25/2016 LAWRENCE WHITESIDE EMPLOYMENT CONSULTANT Ot Z86.718 PERSONAL HISTORY OF OTHER VENOUS THROMBO 11/22/2016 LAWRENCE WHITESIDE APRN Ot E11.9 TYPE 2 DIABETES MELLITUS WITHOUT COMPLIC 11/22/2016 LAWRENCE WHITESIDE APRN Ot F17.210 NICOTINE DEPENDENCE, CIGARETTES, UNCOMPL 11/22/2016 LAWRENCE WHITESIDE APRN Ot F31.9 BIPOLAR DISORDER, UNSPECIFIED 11/22/2016 LAWRENCE WHITESIDE APRN Ot F41.9 ANXIETY DISORDER, UNSPECIFIED 11/22/2016 LAWRENCE WHITESIDE APRN Ot F43.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 DISORDER, UNSPECIF 11/22/2016 LAWRENCE WHITESIDE APRN Ot F90.9 ATTENTION-DEFICIT HYPERACTIVITY DISORDER 11/22/2016 LAWRENCE WHITESIDE APRN Ot G43.909 MIGRAINE, UNSP, NOT INTRACTABLE, WITHOUT 11/22/2016 LAWRENCE WHITESIDE APRN Ot G89.29 OTHER CHRONIC PAIN 11/22/2016 LAWRENCE WHITESIDE APRN Ot J45.909 UNSPECIFIED ASTHMA, UNCOMPLICATED 11/22/2016 LAWRENCE WHITESIDE APRN Ot M25.561 PAIN IN RIGHT KNEE 11/22/2016 LAWRENCE WHITESIDE APRN Ot M54.9 DORSALGIA, UNSPECIFIED 11/22/2016 LAWRENCE WHITESIDE APRN Ot M79.604 PAIN IN RIGHT LEG 11/22/2016 LAWRENCE WHITESIDE APRN Ot W51.XXXA ACCIDENTAL STRIKE OR BUMPED INTO BY ANOT 11/22/2016 LAWRENCE WHITESIDE APRN Ot Z79.82 HALF-WAY (CURRENT) USE OF ASPIRIN 11/22/2016 LAWRENCE WHITESIDE APRN Ot Z82.49 FAMILY HX OF ISCHEM HEART DIS AND OTH DI 11/22/2016 LAWRENCE WHITESIDE APRN Ot Z86.718 PERSONAL HISTORY OF OTHER VENOUS THROMBO 11/22/2016 LAWRENCE WHITESIDE APRN Ot Z86.73 PRSNL HX OF TIA (TIA), AND CEREB INFRC W 11/22/2016 LAWRENCE WHITESIDE APRN Ot Z95.828 PRESENCE OF OTHER VASCULAR IMPLANTS AND 11/22/2016 LAWRENCE WHITESIDE APRN Ot Z98.51 TUBAL LIGATION STATUS Procedures Code Description Performed By Performed On [id number] INSERTION OF INFUSION DEV INTO SUP VENA CAVA, SUKUMAR Lopes MD, Sonya Bell 03/29/2015 [id number] INSERTION OF INTRALUM DEV INTO INF VENA CAVA, SUKUMAR Ambriz MD, Brittani Crowe 03/29/2015 [id number] EXCISION OF RIGHT UPPER LEG SKIN, EXTERNAL APPROAC Flurry MD, Miles D 03/29/2015 [id number] REPLACE R LOW LEG SKIN W AUTOL SUB, PART THICK, EX Miles Ortiz MD 03/29/2015 [id number] DIVISION OF R LOW LEG SUBCU/FASCIA, OPEN APPROACH Sonya Lopes MD 03/29/2015 [id number] REPAIR R LOW LEG SUBCU/FASCIA, OPEN APPROACH Miles Ortiz MD 03/29/2015 [id number] REPAIR R LOW LEG SUBCU/FASCIA, PERC APPROACH Sonya Lopes MD 03/29/2015 [id number] EXCISION OF RIGHT LOWER LEG MUSCLE, OPEN APPROACH Miles Ortiz MD 03/29/2015 [id number] REMOVAL OF EXT FIX FROM R TIBIA, FINGER WAVER APPROACH Sonya Lopes MD 03/29/2015 [id number] REPOSITION RIGHT TIBIA WITH INT FIX, OPEN APPROACH Sonya Lopes MD 03/29/2015 [id number] REPOSITION RIGHT TIBIA WITH EXT FIX, PERC APPROACH Sonya Lopes MD 03/29/2015 [id number] IRRIGATION OF SKIN AND MUCOUS MEMBRANES USING IRRI Sonya Lopes MD 03/29/2015 [id number] MEASURE CARDIAC ELECTR ACTIVITY, GUIDANCE, FINGER WAVER Sonya Lopes MD 03/29/2015 [id number] FLUOROSCOPY OF INF VENA CAVA USING L OSM CONTRAST, Brittani Ambriz MD 03/29/2015 Encounters ACCT No. Visit Date/Time Discharge Status Pt. Type Provider Facility Loc./Unit Complaint [id number] 03/29/2015 19:10:00 2015 16:58:00 DIS Inpatient Marianne FISCHER, Sonya Bell [facility] W.9TS [id number] 11/22/2016 15:18:00 2016 17:00:00 DIS Emergency LAWRENCE WHITESIDE APRN [facility] ER RT LEG INJ [id number] 08/23/2016 13:34:00 2016 16:55:00 DIS Emergency LAWRENCE WHITESIDE APRN [facility] ER ABD PAIN [id number] 04/12/2016 11:27:00 2016 12:57:00 DIS Emergency JUAN GONZALEZ DO [facility] ER R LEG OINJ [id number] 12/31/2015 15:00:00 2015 11:55:00 DIS Inpatient HIEU HINOJOSA MD [facility] ICU SUICIDE ATTEMPT VOL DEPLETION DEPRESSION ANXIETY [id number] 11/20/2015 10:55:00 2015 12:05:00 DIS Emergency LAWRENCE WHITESIDE EMPLOYMENT CONSULTANT [facility] ER COUGH/CONGESTION SOA [id number] 10/17/2015 08:04:00 2015 23:59:59 CLS Outpatient KADIE NEVAREZ MD [facility] RAD SPLENOMEGALY [id number] 09/21/2015 14:56:00 2015 15:46:00 DIS Emergency SANTINO LOPEZ MD [facility] ER BITE/LEFT EYE PASSED OUT [id number] 09/17/2015 13:48:00 2015 17:20:00 DIS Emergency LISA JUAN HURATDO [facility] ER HEADACHE/LEFT SIDE NUMBNESS [id number] 05/06/2015 00:09:00 2015 23:59:59 CLS Preadmit KENYATTA COLEMAN MD [facility] ONC [id number] 02/04/2015 13:33:00 2015 00:01:00 DIS Outpatient KENYATTA COLEMAN MD [facility] ONC [id number] 03/29/2015 08:08:00 2014 09:25:00 DIS Emergency VALERIA GUILLERMO MD [facility] ER R KNEE PAIN [id number] 03/10/2015 14:25:00 2014 23:59:59 CLS Outpatient KADIE NEVAREZ MD [facility] RAD TRANSIENT ALTERATION OF AWARENESS [id number] 01/25/2015 10:51:00 2014 12:01:00 DIS Emergency LAWRENCE WHITESIDE APRN [facility] ER DIFF BREATHING/ELEV HEART RATE [id number] 01/09/2015 11:00:00 2014 23:59:59 CLS Preadmit MARCELLE NELSON EMPLOYMENT CONSULTANT [facility] CARD CHEST PAIN DIZZINESS PALPITATIONS [id number] 12/24/2014 10:42:00 2014 00:01:00 DIS Outpatient MARCELLE NELSON EMPLOYMENT CONSULTANT [facility] CARD CHEST PAIN DIZZINESS PALPITATIONS [id number] 11/03/2014 14:34:00 2014 15:57:00 DIS Emergency CAMILLE FISCHER, ASHLEY Bell [facility] ER [id number] 10/09/2014 09:52:00 2014 23:59:59 CLS Outpatient GERI FISCHER, KADIE Richardson [facility] RAD [id number] 08/22/2016 21:36:00 Document Registration
--- NOTE | 2017-01-25 21:27 | ED EENT ---
History of Present Illness General Chief Complaint: Dental Problems/Pain Stated Complaint: MOUTH ABCESS Nursing Triage Note: PT TO ED 9 W/ C/O DENTAL PAIN, WORSE SINCE BEING ON ABX X5 DAYS. PT ASKING STAFF TO PULL HER TEETH DUE TO PAIN Source: patient, other Exam Limitations: no limitations History of Present Illness Time seen by provider: 21:12 Initial Comments Patient presents to ER by private conveyance with chief complaint of dental pain that started about 5 days ago. 4 days ago she went to her dentist who told her she needed clearance from her primary care physician and started her on clindamycin. Her pain is in bilateral upper teeth. She's not had any dental surgery here before. She has a history of a shunt on her heart on the right side as well as a inferior vena cava filter placed after lots of clots. She's not on any blood thinners. She has allergies to sulfa. She has been tolerating the clindamycin well. No nausea or vomiting although she's occasionally had a few bouts of nausea when the pain hits about 10 out of 10. At rest at about 5 out of 10. She has not used any Topical lidocaine's. She has been using ibuprofen and Tylenol with only modest relief. She says she needs something to help with the pain so she can get to her appointments. Her appointment with her primary care physician is in 2 days. Allergies and Home Medications Allergies Coded Allergies: codeine (Verified Allergy, Severe, ITCHING, HIVES, SOA, 11/03/14) hydrocodone (Verified Allergy, Severe, THROAT SWELLING, PT HAS RECEIVED OXYCODONE IN THE PAST, 12/31/15) latex (Verified Allergy, Severe, BLISTERS, 11/03/14) penicillin (Verified Allergy, Severe, ITCHING, 11/03/14) Sulfa (Sulfonamide Antibiotics) (Verified Allergy, Unknown, RASH, 11/03/14) Home Medications Aspirin 81 Mg Tablet.dr, 81 MG PO DAILY, (Reported) Brexpiprazole 0.5 Mg Tablet, 0.5 MG PO DAILY, (Reported) Dicyclomine HCl 10 Mg Capsule, 10 MG PO QID, (Reported) Docusate Sodium 100 Mg Capsule, 100 MG PO DAILY PRN for CONSTIPATION-1ST LINE, ( Reported) Ferrous Sulfate 325 Mg Tablet, 325 MG PO BID, (Reported) Gabapentin 300 Mg Capsule, 300 MG PO TID, (Reported) Omeprazole 10 Mg Capsule.dr, 10 MG PO DAILY, (Reported) Ondansetron HCl 4 Mg Tab, 4 MG PO DAILY PRN for NAUSEA/VOMITING-1ST LINE, ( Reported) Oxycodone HCl/Acetaminophen 1 Each Tablet, 1 EACH PO Q12H PRN for PAIN-MODERATE TO SEVERE, (Reported) Oxycodone HCl/Acetaminophen 1 Each Tablet, 1 EACH PO Q4H PRN for PAIN-MODERATE, #14 Prescribed by: LAWRENCE WHITESIDE on 08/23/16 1611 Oxycodone HCl/Acetaminophen 1 Each Tablet, 1 EACH PO Q4H PRN for PAIN-MODERATE TO SEVERE, #10 Prescribed by: LAWRENCE WHITESIDE on 11/22/16 1647 Pregabalin 50 Mg Capsule, 50 MG PO in morning, (Reported) Pregabalin 50 Mg Capsule, 100 MG PO HS, (Reported) Tramadol HCl 50 Mg Tablet, 1-2 TAB PO Q6H PRN for PAIN-MILD TO MODERATE, ( Reported) Review of Systems Constitutional: No chills, No diaphoresis, No fever Eyes: Denies Blindness, Denies Blurred Vision, Denies Drainage Ears: Denies Dizziness, Denies Pain Nose: denies clots, denies congestion Mouth: pain, denies swelling, denies purulent discharge, denies previous injury Throat: denies pain, denies swelling Respiratory: No cough, No short of breath Cardiovascular: No chest pain, No palpitations Gastrointestinal: No nausea, No vomiting : No Skin: No pruritus, No rash Past Rhutskt-Ofadpt-Oekzxv Hx Patient Social History Alcohol Use: Denies Use Number of Drinks Today: II Alcohol Beverage of Choice: Other Recreational Drug Use: No Smoking Status: Current Everyday Smoker Type Used: Cigarettes 2nd Hand Smoke Exposure: Yes Recent Foreign Travel: No Contact w/Someone Who Travel: No Recent Infectious Disease Expo: No Recent Hopitalizations: No Physical Abuse: No Sexual Abuse: No Mistreated: No Fear: No Immunizations Up To Date Tetanus Booster (TDap): Less than 5yrs Date of Pneumonia Vaccine: Dec 10, 2014 Seasonal Allergies Seasonal Allergies: No Surgeries History of Surgeries: Yes (RIGHT LWR LEG FX/ORIF & FASCIOTOMY-12 SURG, TUBAL LIGATION, STERILIZATION. 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 Genitourinary Genitourinary Disorders: Kidney Stones Gastrointestinal History of Gastrointestinal Di: Yes Gastrointestinal Disorders: Colitis Musculoskeletal History of Musculoskeletal Dis: Yes Musculoskeletal Disorders: Degenerate Disk Disease, Scoliosis, Chronic Back Pain, Fractures Endocrine History of Endocrine Disorders: Yes Endocrine Disorders: Diabetes, Non-Insulin dep HEENT Loss of Vision: Bilateral Cancer History of Cancer: No Psychosocial History of Psychiatric Problem: No Behavioral Health Disorders: ADD/ADHD, Anxiety, PTSD, Bipolar, Depression Suicide Risk Score: 0 Integumentary History of Skin or Integumenta: No Blood Transfusions History of Blood Disorders: No Family Medical History Significant Family History: No Pertinent Family Hx Family Medial History: Antiphospholipid syndrome 19 MOTHER Diabetes mellitus 19 FATHER G8 BROTHER FH: aneurysm 19 FATHER FH: lupus 19 MOTHER FHx: congestive heart failure 19 FATHER FHx: renal failure 19 MOTHER Heart murmur 19 MOTHER Lupus anticoagulant disorder 19 MOTHER Patent foramen ovale 19 FATHER Barry syndrome G8 SISTER Physical Exam Vital Signs Vital Sign - Last 12Hours 01/25/17 21:11 Temp 98.8 Pulse 90 Resp 20 B/P (MAP) 129/92 Pulse Ox 99 O2 Delivery Room Air General Appearance: WD/WN, mild distress Eyes: bilateral eye normal inspection, bilateral eye PERRL, bilateral eye EOMI Ears: bilateral ear auricle normal, bilateral ear canal normal, bilateral ear TM normal Nose: normal inspection, No active bleeding Mouth/Throat: dental tenderness (bilateral upper eye teeth.), No excessive drooling, No foreign body, No maxillary swelling, No pharynx swelling Neck: non-tender, normal inspection Cardiovascular: normal peripheral pulses, regular rate, rhythm Respiratory: lungs clear, normal breath sounds Neurologic/Psychiatric: alert, oriented x 3 Skin: normal color, warm/dry Progress/Results/Core Measures Results/Orders Vital Signs/I&O Vital Sign - Last 12Hours 01/25/17 21:11 Temp 98.8 Pulse 90 Resp 20 B/P (MAP) 129/92 Pulse Ox 99 O2 Delivery Room Air Blood Pressure Mean: 104 Departure Impression Impression: Primary Impression: Dental caries Disposition: HOME, SELF-CARE Condition: Stable Departure-Patient Inst. Decision time for Depature: 21:25 Referrals: HIEU YAP MD (PCP/Family) Primary Care Physician Patient Instructions: Dental Pain (DC) Add. Discharge Instructions: Apply the lidocaine soaked gauze directly to the open socket severe teeth and hold them in place for some numbness lasting up to one to 2 hours. We'll give you a shot of Toradol in the ER and 6-8 hours again later you can start taking 800 mg of ibuprofen every 8 hours as needed for pain. You may also start taking Tylenol 1000 mg every 8 hours as needed for pain immediately. Also suggest you use heating pads, Orajel and follow up with your appointments to get your teeth taken care of. While taking clindamycin it is advisable to use probiotics one capsule twice a day to avoid the GI side effects of diarrhea. All discharge instructions reviewed with patient and/or family. Voiced understanding. Copy Copies To 1: TU HARRIS TITUS J Jan 25, 2017 21:27
[2017-01-25] MEDS ORDERED: KETOROLAC 30 MG/ML VIAL IVP ONE (21:30)
[2017-01-25] MEDS ORDERED: LIDOCAINE 2% VISCOUS 15 ML UDC PO ONE (21:30)
[2017-01-25 21:44] VITALS: BP 0/0
== END 2017-01-25 21:44 | disposition home or self-care (01) ==
LOC: EDUNIT# 20:49 → ER 20:50
DX: K02.9 Dental caries, unspecified (principal); F17.210 Nicotine dependence, cigarettes, uncomplicated; Z86.73 Personal history of transient ischemic attack (TIA), and cerebral infarction without residual deficits; E11.9 Type 2 diabetes mellitus without complications; F31.9 Bipolar disorder, unspecified; F41.9 Anxiety disorder, unspecified
CPT/HCPCS: 96374; 99284

== ENCOUNTER 2017-01-27 17:16 | Emergency (ER) | payer MEDICAID ==
[~2017-01-27] VITALS: Ht 154.9 cm; Wt 89.8 kg
[2017-01-27] MEDS ORDERED: KETOROLAC 60 MG/2 ML VIAL IM ONE (20:00)
--- NOTE | 2017-01-27 20:02 | ED General ---
General Chief Complaint: Dental Problems/Pain Stated Complaint: DENTAL PAIN/FACE SWELLING Nursing Triage Note: PT HERE WITH C/O L UPPER DENTAL PAIN. PT REPORTS HAVING A TOOTH PULLED AT [facility]ENT[facility] TODAY. PT REPORTS PAIN THAT GOES INTO THE L SIDE OF HER NECK. Nursing Sepsis Screen: No Definite Risk Source of Information: Patient Exam Limitations: No Limitations History of Present Illness Time Seen by Provider: 19:30 Initial Comments This 31-year-old woman presents to the emergency room with complaints of headache, dizziness, pain on the right side of the face, and numbness affecting the right neck, shoulder, and face. She had a dental extraction performed at [facility] today. She reports it was a difficult procedure due to long roots and took over 2 hours. She went home and laid down after taking some ibuprofen. She then noticed the symptoms in her right face and neck. The headache extends from the base of her neck and medial shoulders up over her head toward her forehead. She has been on clindamycin. She is rather distraught at the time of my exam. She has history of a stroke and is concerned that her symptoms may be stroke related. Symptoms have actually been improving and the numbness has dissipated. She has no measurable neurologic deficits on exam. Allergies and Home Medications Allergies Coded Allergies: codeine (Verified Allergy, Severe, ITCHING, HIVES, SOA, 11/03/14) hydrocodone (Verified Allergy, Severe, THROAT SWELLING, PT HAS RECEIVED OXYCODONE IN THE PAST, 12/31/15) latex (Verified Allergy, Severe, BLISTERS, 11/03/14) penicillin (Verified Allergy, Severe, ITCHING, 11/03/14) Sulfa (Sulfonamide Antibiotics) (Verified Allergy, Unknown, RASH, 11/03/14) Home Medications Aspirin 81 Mg Tablet.dr, 81 MG PO DAILY, (Reported) Brexpiprazole 0.5 Mg Tablet, 0.5 MG PO DAILY, (Reported) Dicyclomine HCl 10 Mg Capsule, 10 MG PO QID, (Reported) Docusate Sodium 100 Mg Capsule, 100 MG PO DAILY PRN for CONSTIPATION-1ST LINE, ( Reported) Ferrous Sulfate 325 Mg Tablet, 325 MG PO BID, (Reported) Gabapentin 300 Mg Capsule, 300 MG PO TID, (Reported) Omeprazole 10 Mg Capsule.dr, 10 MG PO DAILY, (Reported) Ondansetron HCl 4 Mg Tab, 4 MG PO DAILY PRN for NAUSEA/VOMITING-1ST LINE, ( Reported) Oxycodone HCl/Acetaminophen 1 Each Tablet, 1 EACH PO Q12H PRN for PAIN-MODERATE TO SEVERE, (Reported) Oxycodone HCl/Acetaminophen 1 Each Tablet, 1 EACH PO Q4H PRN for PAIN-MODERATE, #14 Prescribed by: LAWRENCE WHITESIDE on 08/23/16 1611 Oxycodone HCl/Acetaminophen 1 Each Tablet, 1 EACH PO Q4H PRN for PAIN-MODERATE TO SEVERE, #10 Prescribed by: LAWRENCE WHITESIDE on 11/22/16 1647 Pregabalin 50 Mg Capsule, 50 MG PO in morning, (Reported) Pregabalin 50 Mg Capsule, 100 MG PO HS, (Reported) Tramadol HCl 50 Mg Tablet, 1-2 TAB PO Q6H PRN for PAIN-MILD TO MODERATE, ( Reported) Constitutional: no symptoms reported EENTM: see HPI Respiratory: no symptoms reported Cardiovascular: no symptoms reported Gastrointestinal: no symptoms reported Genitourinary: no symptoms reported : No Musculoskeletal: see HPI Skin: no symptoms reported Psychiatric/Neurological: See HPI Hematologic/Lymphatic: No Symptoms Reported Past Dbmbanj-Ktjceu-Rnsdbd Hx Patient Social History Alcohol Beverage of Choice: Other Type Used: Cigarettes 2nd Hand Smoke Exposure: Yes Recent Foreign Travel: No Contact w/Someone Who Travel: No Recent Infectious Disease Expo: No Recent Hopitalizations: No Immunizations Up To Date Tetanus Booster (TDap): Less than 5yrs Date of Pneumonia Vaccine: Dec 10, 2014 Seasonal Allergies Seasonal Allergies: No Surgeries History of Surgeries: Yes (RIGHT LWR LEG FX/ORIF & FASCIOTOMY-12 SURG, TUBAL LIGATION, STERILIZATION. 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 Genitourinary Genitourinary Disorders: Kidney Stones Gastrointestinal History of Gastrointestinal Di: Yes Gastrointestinal Disorders: Colitis Musculoskeletal History of Musculoskeletal Dis: Yes Musculoskeletal Disorders: Degenerate Disk Disease, Scoliosis, Chronic Back Pain, Fractures Endocrine History of Endocrine Disorders: Yes Endocrine Disorders: Diabetes, Non-Insulin dep HEENT History of HEENT Disorders: No Loss of Vision: Bilateral Cancer History of Cancer: No Psychosocial History of Psychiatric Problem: Yes Behavioral Health Disorders: ADD/ADHD, Anxiety, PTSD, Bipolar, Depression Integumentary History of Skin or Integumenta: No Blood Transfusions History of Blood Disorders: No Family Medical History Significant Family History: No Pertinent Family Hx Family Medial History: Antiphospholipid syndrome 19 MOTHER Diabetes mellitus 19 FATHER G8 BROTHER FH: aneurysm 19 FATHER FH: lupus 19 MOTHER FHx: congestive heart failure 19 FATHER FHx: renal failure 19 MOTHER Heart murmur 19 MOTHER Lupus anticoagulant disorder 19 MOTHER Patent foramen ovale 19 FATHER Barry syndrome G8 SISTER Physical Exam Vital Signs Vital Sign - Last 12Hours 01/27/17 18:26 Temp 99.0 Pulse 92 Resp 18 B/P (MAP) 146/105 Pulse Ox 98 O2 Delivery Room Air Capillary Refill : Less Than 3 Seconds General Appearance: No Apparent Distress, WD/WN HEENT: PERRL/EOMI, TMs Normal, Normal ENT Inspection, Pharynx Normal, Other ( open socket from dental extraction with controlled bleeding in the right upper mouth) Neck: Normal Inspection, Supple, Other (tense musculature in the neck) Respiratory: Lungs Clear, Normal Breath Sounds, No Accessory Muscle Use, No Respiratory Distress Cardiovascular: Regular Rate, Rhythm, No Edema, No Murmur Gastrointestinal: Non Tender, Soft Extremity: Normal Inspection, No Pedal Edema, Other (postsurgical changes to the right lower extremity) Neurologic/Psychiatric: Alert, Oriented x3, Normal Mood/Affect, supervisor forming and tempering II-XII Norm as Tested, Motor Weakness (chronic motor weakness in the right lower extremity is unchanged from baseline) Skin: Normal Color, Warm/Dry Progress/Results/Core Measures Results/Orders My Orders Orders - MARIA ELENA MORA MD Ketorolac Injection (Toradol Injection) (01/27/17 20:00) Vital Signs/I&O Blood Pressure Mean: 119 Progress Note : Progress Note Patient had no acute neurologic deficits. I suspect some of the numbness she was experiencing was reaching of local anesthetic or radiculopathy from a prolonged procedure. She seemed to have a tension headache causing the pain in her neck and headache. She was offered Toradol and Norflex. She did want the Toradol but declined and Norflex. Patient left calm and feeling reassured. Departure Impression Impression: Primary Impression: Other acute postprocedural pain Additional Impressions: Tension headache right-sided paresthesias Disposition: 01 HOME, SELF-CARE Condition: Improved Departure-Patient Inst. Referrals: HIEU YAP MD (PCP/Family) Primary Care Physician Patient Instructions: Dental Pain (DC) Add. Discharge Instructions: You may continue taking ibuprofen up to 800 mg every 8 hours or 600 mg every 6 hours as needed for pain. Add Tylenol (acetaminophen) up to 1000 g every 6 hours as needed for additional pain relief. To help relax your muscles, consider taking a warm bath or shower or using gentle heat such as a heating pad on low. Focus on relaxing your muscles tonight and avoid doing anything strenuous until headache and muscle pain improves. Return to care if symptoms worsen. Follow any other instructions you have for post dental extraction care from the dentist. All discharge instructions reviewed with patient and/or family. Voiced understanding. MARIA ELENA MORA MD Jan 27, 2017 20:02
[2017-01-27 20:17] VITALS: BP 136/95
== END 2017-01-27 20:18 | disposition home or self-care (01) ==
LOC: EDUNIT# 17:16 → ER 17:17
DX: G89.18 Other acute postprocedural pain (principal); G44.209 Tension-type headache, unspecified, not intractable; R20.2 Paresthesia of skin; J45.909 Unspecified asthma, uncomplicated; E11.9 Type 2 diabetes mellitus without complications; F43.10 Post-traumatic stress disorder, unspecified; F31.9 Bipolar disorder, unspecified; F90.9 Attention-deficit hyperactivity disorder, unspecified type; F41.9 Anxiety disorder, unspecified; Z87.442 Personal history of urinary calculi; Z87.19 Personal history of other diseases of the digestive system; Z86.73 Personal history of transient ischemic attack (TIA), and cerebral infarction without residual deficits; Z86.718 Personal history of other venous thrombosis and embolism; Z79.82 Long term (current) use of aspirin; Z82.49 Family history of ischemic heart disease and other diseases of the circulatory system; Z77.22 Contact with and (suspected) exposure to environmental tobacco smoke (acute) (chronic); Z98.51 Tubal ligation status
CPT/HCPCS: 96372; 99284

== ENCOUNTER 2017-03-24 00:35 | Emergency (ER) | payer MEDICAID ==
[~2017-03-24] VITALS: Ht 154.9 cm; Wt 89.8 kg
[~2017-03-24 00:35] MED LIST changes: -NAPR500T3 PO; +NAPR500T4 PO
[2017-03-24 01:22] LABS: BILIRUBIN,URINE NEGATIVE (NEGATIVE); KETONES,URINE NEGATIVE (NEGATIVE); LEUKOCYTE ESTERASE ,URINE 1+ (NEGATIVE); NITRITE,URINE NEGATIVE (NEGATIVE); PH,URINE 6.5 (5-9); PROTEIN,URINE 2+ (NEGATIVE); UROBILINOGEN,URINE 4 MG/DL (NORMAL)
--- NOTE | 2017-03-24 01:22 | ED GU-Female ---
General Chief Complaint: -Female Stated Complaint: VOMITING, CONTROL CAME OUT W/URINATING Source: patient History of Present Illness Time seen by provider: 00:55 Initial Comments PT ARRIVES VIA POV WITH HER 2 ROOM MATES--ONE ROOM MATE ALSO BEING SEEN IN ER FOR UNRELATED PROBLEM PT STATES IMMEDIATELY PRIOR TO ARRIVAL, SHE HAD SOME LOWER BACK AND LOWER ABDOMINAL PAIN AND "FELT LIKE EVERYTHING WAS FALLING OUT" SO SHE WENT TO BATHROOM AND STARTED "PUSHING" "LIKE I WAS HAVING A BOWEL MOVEMENT" AND SHE URINATED AND HER MIRENA IUD FELL OUT-HAD A BLOOD CLOT COME OUT WITH IT NO BLEEDING NOW NO PROBLEMS URINATING NO FEVER STATES "I HAD A LOT OF SHAKING AFTERWARD" --THAT HAS RESOLVED STATES SHE VOMITED X 1, BUT ONLY BECAUSE SHE WATCHED HER ROOM MATE THROW UP AND IT MADE HER GAG AND THROW UP TOO. IS NOT NAUSEATED NO SYMPTOMS AT THIS TIME PT WITH MULTIPLE VISITS--7 IN 2017 PCP: DEV Allergies and Home Medications Allergies Coded Allergies: codeine (Verified Allergy, Severe, ITCHING, HIVES, SOA, 11/03/14) hydrocodone (Verified Allergy, Severe, THROAT SWELLING, PT HAS RECEIVED OXYCODONE IN THE PAST, 12/31/15) latex (Verified Allergy, Severe, BLISTERS, 11/03/14) penicillin (Verified Allergy, Severe, ITCHING, 11/03/14) Sulfa (Sulfonamide Antibiotics) (Verified Allergy, Unknown, RASH, 11/03/14) Home Medications Aspirin 81 Mg Tablet.dr, 81 MG PO DAILY, (Reported) Brexpiprazole 0.5 Mg Tablet, 0.5 MG PO DAILY, (Reported) Dicyclomine HCl 10 Mg Capsule, 10 MG PO QID, (Reported) Docusate Sodium 100 Mg Capsule, 100 MG PO DAILY PRN for CONSTIPATION-1ST LINE, ( Reported) Ferrous Sulfate 325 Mg Tablet, 325 MG PO BID, (Reported) Gabapentin 300 Mg Capsule, 300 MG PO TID, (Reported) Omeprazole 10 Mg Capsule.dr, 10 MG PO DAILY, (Reported) Ondansetron HCl 4 Mg Tab, 4 MG PO DAILY PRN for NAUSEA/VOMITING-1ST LINE, ( Reported) Oxycodone HCl/Acetaminophen 1 Each Tablet, 1 EACH PO Q12H PRN for PAIN-MODERATE TO SEVERE, (Reported) Oxycodone HCl/Acetaminophen 1 Each Tablet, 1 EACH PO Q4H PRN for PAIN-MODERATE, #14 Prescribed by: LAWRENCE WHITESIDE on 08/23/16 1611 Oxycodone HCl/Acetaminophen 1 Each Tablet, 1 EACH PO Q4H PRN for PAIN-MODERATE TO SEVERE, #10 Prescribed by: LAWRENCE WHITESIDE on 11/22/16 1647 Pregabalin 50 Mg Capsule, 50 MG PO in morning, (Reported) Pregabalin 50 Mg Capsule, 100 MG PO HS, (Reported) Tramadol HCl 50 Mg Tablet, 1-2 TAB PO Q6H PRN for PAIN-MILD TO MODERATE, ( Reported) Constitutional: see HPI, No fever Respiratory: no symptoms reported Cardiovascular: no symptoms reported Gastrointestinal: see HPI, abdominal pain, vomiting Genitourinary: see HPI : No Musculoskeletal: see HPI, back pain Skin: no symptoms reported Psychiatric/Neurological: See HPI, Anxiety Endocrine: No Symptoms Reported Hematologic/Lymphatic: No Symptoms Reported Past Uuvnsof-Zuyhfm-Enwuos Hx Patient Social History Alcohol Use: Occasionally Uses Alcohol Beverage of Choice: Other Smoking Status: Current Everyday Smoker (1 PPD) Type Used: Cigarettes 2nd Hand Smoke Exposure: Yes Recent Foreign Travel: No Contact w/Someone Who Travel: No Recent Hopitalizations: No Immunizations Up To Date Tetanus Booster (TDap): Less than 5yrs Date of Pneumonia Vaccine: Dec 10, 2014 Seasonal Allergies Seasonal Allergies: No Surgeries History of Surgeries: Yes (RIGHT LOWR LEG FX'S /ORIF & FASCIOTOMY-12 SURG; IVC FILTER ) Surgeries: Orthopedic, 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, Vascular Surgery Respiratory History of Respiratory Disorde: Yes (CHILDHOOD) Respiratory Disorders: Asthma Cardiovascular History of Cardiac Disorders: Yes (PFO AND RIGHT ATRIAL SHUNT--NO REPAIR;BLOOD CLOTS IN RIGHT LEG--IVC FILTER--POST RIGHT FX/ORIF AND FASCIOTOMY) Cardiac Disorders: Congenital Heart Disease, Deep Vein Thrombosis Neurological History of Neurological Disord: Yes (CVA WITH RIGHT SIDE WEAKNESS IN 2013-- RIGHT LOWER LEG FX'S/ORIF WITH POST OP DVT AND COMPARTMENT SYNDROME WITH FASCIOTOMY AND DEVELOPED DVT WHICH CAUSED A STROKE-- ALSO PFO WITH RIGHT ATRIAL SHUNT; SUBSEQUENT RIGHT FOOT DROP) Neurological Disorders: Headaches /Migraines, Stroke 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 System : No Last Menstrual Period: Mar 11, 2017 Hx 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 Disorders: 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, 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 Genitourinary History of Genitourinary Disor: Yes Genitourinary Disorders: Kidney Stones Gastrointestinal History of Gastrointestinal Di: Yes Gastrointestinal Disorders: Colitis Musculoskeletal History of Musculoskeletal Dis: Yes (CHRONIC NECK AND BACK PAIN; CHRONIC RIGHT LEG PAIN; RIGHT FOOT DROP) Musculoskeletal Disorders: Degenerate Disk Disease, Scoliosis, Chronic Back Pain, Fractures Endocrine History of Endocrine Disorders: Yes Endocrine Disorders: Diabetes, Non-Insulin dep HEENT History of HEENT Disorders: Yes ("LEGALLY BLIND" ) Loss of Vision: Bilateral Cancer History of Cancer: No Psychosocial History of Psychiatric Problem: Yes Behavioral Health Disorders: ADD/ADHD, Anxiety, PTSD, Bipolar, Depression Integumentary History of Skin or Integumenta: No Blood Transfusions History of Blood Disorders: No Family Medical History Significant Family History: No Pertinent Family Hx Family Medial History: Antiphospholipid syndrome 19 MOTHER Diabetes mellitus 19 FATHER G8 BROTHER FH: aneurysm 19 FATHER FH: lupus 19 MOTHER FHx: congestive heart failure 19 FATHER FHx: renal failure 19 MOTHER Heart murmur 19 MOTHER Lupus anticoagulant disorder 19 MOTHER Patent foramen ovale 19 FATHER Barry syndrome G8 SISTER Physical Exam Vital Signs Vital Sign - Last 12Hours 03/24/ 00:50 Temp 98.6 Pulse 94 Resp 14 B/P (MAP) 136/78 (97) Capillary Refill : General Appearance: WD/WN, no apparent distress, obese Cardiovascular: regular rate, rhythm, no murmur Respiratory: normal breath sounds Gastrointestinal: normal bowel sounds, soft, No distended, No guarding, tenderness (MILD SUPRAPUBIC TENDERNESS), No hernia, No mass Pelvic: normal external exam, No discharge, No lesions, No mass, No tender w/ cervical motion, tender adnexa (RIGHT ADNEXA WITH MILD TENDERNESS), No tender uterus, vaginal bleeding (SCANT AMOUNT OF BLOOD IN CANAL. NO ACTIVE BLEEDING AND NO CLOTS) Back: normal inspection, no CVA tenderness Extremities: no pedal edema, normal capillary refill, other (RIGHT FOOT DROP) Neurologic/Psychiatric: apple thinner II-XII nml as tested, alert, normal mood/affect, oriented x 3, other (RIGHT SIDE WEAKNESS AND RIGHT FOOT DROP--NORMAL BASELING) Skin: normal color, warm/dry, tattoos/piercings (MULTIPLE TATTOOS) Progress/Results/Core Measures Suspected Sepsis SIRS Temperature: Pulse: Respiratory Rate: Blood Pressure / Mean: Results/Orders Lab Results Laboratory Tests Test 12/14/17 00:43 Range/Units Urine Color YELLOW Urine Clarity CLEAR Urine pH 6.5 5-9 Urine Specific [place] 1.020 1.016-1.022 Urine Protein 2+ H NEGATIVE Urine Glucose (UA) NEGATIVE NEGATIVE Urine Ketones NEGATIVE NEGATIVE Urine Nitrite NEGATIVE NEGATIVE Urine Bilirubin NEGATIVE NEGATIVE Urine Urobilinogen 4 H NORMAL MG/DL Urine Leukocyte Esterase 1+ H NEGATIVE Urine RBC (Auto) 3+ H NEGATIVE Urine RBC 0-2 /HPF Urine WBC RARE /HPF Urine Squamous Epithelial Cells 10-25 H /HPF Urine Crystals NONE /LPF Urine Bacteria TRACE /HPF Urine Casts NONE /LPF Urine Mucus SMALL H /LPF Urine Culture Indicated NO My Orders Orders - JUAN GONZALEZ DO Urine Bedside (03/24/17 01:17) Ua Culture If Indicated (03/24/17 01:17) Neisseria Gonorrhea Dna (03/24/17 01:40) Chlam Dna Probe (03/24/17 01:40) Genital Culture (03/24/17 01:40) Wet Prep (03/24/17 01:40) Jamie Prep (03/24/17 01:40) Vital Signs/I&O Vital Sign - Last 12Hours 03/24/17 00:50 Temp 98.6 Pulse 94 Resp 14 B/P (MAP) 136/78 (97) Capillary Refill : Progress Note : Progress Note NO SYMPTOMS DURING ER STAY Departure Impression Impression: Primary Impression: IUD FELL OUT Disposition: 01 HOME, SELF-CARE Condition: Stable Departure-Patient Inst. Referrals: HIEU YAP MD (PCP/Family) Primary Care Physician Patient Instructions: Intrauterine Devices (IUD) Add. Discharge Instructions: FOLLOW UP WITH YOUR COMPLIANCE AUDITOR OR [facility] NEXT WEEK FOR FURTHER CARE USE ANOTHER FORM OF CONTROL OR ABSTAIN FROM INTERCOURSE UNTIL YOU HAVE SEEN YOUR DR AND BEEN CLEARED. TYLENOL AND MOTRIN NEEDED FOR PAIN All discharge instructions reviewed with patient and/or family. Voiced understanding. JUAN GONZALEZ DO Mar 24, 2017 01:22
[2017-03-24 01:28] LABS: WBC,URINE RARE /HPF
[2017-03-24 01:59] VITALS: BP 136/78
[2017-03-25 06:24] LABS: CHLAMYDIA DNA PROBE PT Not Detected (Not Detected); NEISSERIA GONORRHEA DNA Not Detected (Not Detected)
== END 2017-03-24 01:59 | disposition home or self-care (01) ==
LOC: EDUNIT# 00:35 → ER 00:38
DX: T83.32XA Displacement of intrauterine contraceptive device, initial encounter (principal); J45.909 Unspecified asthma, uncomplicated; E11.9 Type 2 diabetes mellitus without complications; F90.9 Attention-deficit hyperactivity disorder, unspecified type; F41.9 Anxiety disorder, unspecified; F43.10 Post-traumatic stress disorder, unspecified; F31.9 Bipolar disorder, unspecified; G43.909 Migraine, unspecified, not intractable, without status migrainosus; M41.9 Scoliosis, unspecified; F17.210 Nicotine dependence, cigarettes, uncomplicated; Z79.82 Long term (current) use of aspirin; Z86.018 Personal history of other benign neoplasm; Z82.49 Family history of ischemic heart disease and other diseases of the circulatory system; Z86.73 Personal history of transient ischemic attack (TIA), and cerebral infarction without residual deficits; Z98.51 Tubal ligation status; Z87.440 Personal history of urinary (tract) infections; Z87.19 Personal history of other diseases of the digestive system; Z95.828 Presence of other vascular implants and grafts
CPT/HCPCS: 36415; 81000; 84703; 87070; 87210; 87220; 87491; 87591; 99284

== ENCOUNTER 2017-04-17 12:44 | Emergency (ER) | payer MEDICAID ==
[~2017-04-17] VITALS: Ht 154.9 cm; Wt 86.2 kg
--- OUTSIDE RECORDS SUMMARY | 2017-04-17 12:53 | XMS REPORT ---
Author Author [facility] Address [address] [place] [address] Care Team Providers Care [place] Clerk Name Role Phone [facility] Unavailable PROBLEMS Type Condition ICD9-CM Code [id number] Code Onset Dates Condition Status SNOMED Code Problem PFO (patent foramen ovale) Q21.1 Active 361494083 Problem Gastroesophageal reflux disease, esophagitis presence not specified K21.9 Active 555529029 Problem Iron deficiency anemia, unspecified iron deficiency anemia type D50.9 Active 79547298 Problem History of stroke Z86.73 Active 879641937 Problem Lumbar degenerative disc disease M51.36 Active 58550626 Problem Menorrhagia with regular cycle N92.0 Active 605719925 Problem Dyslipidemia E78.5 Active 259689951 Problem Anxiety associated with depression F41.8 Active 677093970 Problem Irregular periods N92.6 Active 69333770 Problem Herpes simplex B00.9 Active 27729740 Problem Bipolar 2 disorder F31.81 Active 93065356 Problem Social anxiety disorder F40.10 Active 18667931 Problem Pure hypercholesterolemia E78.00 Active 754019212 Problem Chronic post-traumatic stress disorder F43.12 Active 142839078 Problem Prediabetes R73.09 Active 692171384 Problem Irritable bowel syndrome without diarrhea K58.9 Active 62815133 Problem Scoliosis, unspecified M41.9 Active 772957789 Problem Foot drop, right M21.371 Active 4326791 Problem Constipation K59.00 Active 26407421 Problem Acute stress reaction with predominately emotional disturbance F43.9 Active 59238373 Problem Chronic pain due to trauma G89.21 Active 306036533 Problem Chronic prescription opiate use Z79.899 Active 419623249 Problem Fibrocystic breast, left N60.12 Active 60708282 Problem Muscle spasm of back M62.830 Active 698943046 Problem 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 Active 437888298 Problem Fibrocystic breast, right N60.11 Active 45993779 Problem History of ovarian cyst Z87.42 Active 053688344 Problem History of nipple discharge Z87.898 Active 835675521 Problem History of chest pain Z87.898 Active 922081719 ALLERGIES No Information SOCIAL HISTORY Never Assessed PLAN OF CARE VITAL SIGNS MEDICATIONS No Known Medications RESULTS No Results PROCEDURES No Known [...] salpingectomy Surgical History Fasciatomy 03/2015 Surgical History [place] filter placement 03/2015 Surgical History Right leg Tibia, Fibula fracture repair- rods/pins placement 03/2015 Hospitalization History Right leg fracture 03/2015 Hospitalization History Suicide attempt, depression, anxiety--[facility] 12/31/15
--- OUTSIDE RECORDS SUMMARY | 2017-04-17 12:58 | XMS REPORT ---
Author Author [facility] Address [address] [place] [address] Care Team Providers Care [employer]alking [employer] Library Clerk Name Role Phone [facility] Unavailable PROBLEMS Type Condition ICD9-CM Code [id number] Code Onset Dates Condition Status SNOMED Code Problem PFO (patent foramen ovale) Q21.1 Active 085834454 Problem Gastroesophageal reflux disease, esophagitis presence not specified K21.9 Active 544634027 Problem Iron deficiency anemia, unspecified iron deficiency anemia type D50.9 Active 80852697 Problem History of stroke Z86.73 Active 965297361 Problem Lumbar degenerative disc disease M51.36 Active 35444012 Problem Menorrhagia with regular cycle N92.0 Active 992182946 Problem Dyslipidemia E78.5 Active 411592616 Problem Anxiety associated with depression F41.8 Active 572056893 Problem Irregular periods N92.6 Active 10087474 Problem Herpes simplex B00.9 Active 93746673 Problem Bipolar 2 disorder F31.81 Active 99547561 Problem Social anxiety disorder F40.10 Active 53950646 Problem Pure hypercholesterolemia E78.00 Active 004338222 Problem Chronic post-traumatic stress disorder F43.12 Active 072014430 Problem Prediabetes R73.09 Active 119846952 Problem Irritable bowel syndrome without diarrhea K58.9 Active 49024813 Problem Scoliosis, unspecified M41.9 Active 454181448 Problem Foot drop, right M21.371 Active 8050592 Problem Constipation K59.00 Active 78081610 Problem Acute stress reaction with predominately emotional disturbance F43.9 Active 55914216 Problem Chronic pain due to trauma G89.21 Active 111691092 Problem Chronic prescription opiate use Z79.899 Active 905347008 Problem Fibrocystic breast, left N60.12 Active 37706637 Problem Muscle spasm of back M62.830 Active 467828681 Problem 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 Active 050761081 Problem Fibrocystic breast, right N60.11 Active 60062979 Problem History of ovarian cyst Z87.42 Active 431452120 Problem History of nipple discharge Z87.898 Active 584392922 Problem History of chest pain Z87.898 Active 798737382 ALLERGIES Substance Reaction Event Type Date Status Latex Gloves blisters and welts Drug Allergy August, Active SulfADIAZINE Rash Drug Allergy August, Active Penicillamine Hives. Throat itches Drug Allergy August, Active [place] throat swelling Drug Allergy August, Active Codeine Sulfate body felt like it was on fire. Blisters on Body Drug Allergy August, Active SOCIAL HISTORY Never Assessed PLAN OF CARE Activity Details Follow Up 4 Weeks Reason:FU labs VITAL SIGNS Height 65.2 in 2016-08-31 Weight 225 lbs 2016-08-31 Temperature 98.5 degrees Fahrenheit 2016-08-31 Heart Rate 90 bpm 2016-08-31 Respiratory Rate 20 2016-08-31 BMI 37.21 kg/m2 2016-08-31 Blood pressure systolic 118 mmHg 2016-08-31 Blood pressure diastolic 70 mmHg 2016-08-31 MEDICATIONS Medication Instructions Dosage Frequency Start Date End Date Duration Status Doxepin HCl 10 mg Orally at bedtime for sleep 1 capsule Jul, Active Lyrica 50 mg Orally as directed 1 capsule in the morning and 2 caps at bedtime 30 days Active Omeprazole 10 mg Orally Once a day 1 capsule 24h August, 30 days Active Rexulti 0.5 MG Orally Once a day for mood 1 tablet Active Dicyclomine HCl 10 mg Orally 2 times a day 1 capsule as needed 12h Nov, 30 days Active Gabapentin 300 MG Orally Three times a day 1 capsule 8h 30 days Active Colace 100 mg Orally Twice a day 1 capsule as needed 12h Nov, 30 days Active Ferrous Sulfate 325 (65 Fe) MG Orally Once a day 2 tablets 24h Sep, 30 days Active Aspirin 81 MG Orally Once a day 1 tablet 24h Jan, Active HydrOXYzine HCl 25 MG Orally twice per day for anxiety 1-2 tablet as needed Jul, Active Zofran ODT 4 MG Orally every 8 hours as needed for nausea 1 tablet on the tongue and allow to dissolve Dec, Active RESULTS Name Result Date Reference Range IRON + TIBC 2016-08-31 Iron Bind.Cap.(TIBC) 380 250-450 UIBC 364 131-425 Iron, Serum 16 27-159 Iron Saturation 4 15-55 CBC 2016-08-31 WBC 8.3 3.4-10.8 RBC 4.43 3.77-5.28 Hemoglobin 10.7 11.1-15.9 Hematocrit 34.4 34.0-46.6 MCV 78 79-97 MCH 24.2 26.6-33.0 MCHC 31.1 31.5-35.7 RDW 16.8 12.3-15.4 Platelets 580 150-379 Neutrophils 59 Lymphs 33 Monocytes 6 Eos 2 Basos 0 Neutrophils (Absolute) 4.8 1.4-7.0 Lymphs (Absolute) 2.8 0.7-3.1 Monocytes(Absolute) 0.5 0.1-0.9 Eos (Absolute) 0.2 0.0-0.4 Baso (Absolute) 0.0 0.0-0.2 Immature Granulocytes 0 Immature Grans (Abs) 0.0 0.0-0.1 CMP 2016-08-31 Glucose, Serum 86 65-99 BUN 7 6-20 Creatinine, Serum 0.64 0.57-1.00 eGFR If NonAfricn Am 119 >59 eGFR If Africn Am 138 >59 BUN/Creatinine Ratio 11 9-23 Sodium, Serum 140 134-144 Potassium, Serum 4.7 3.5-5.2 Chloride, Serum 102 96-106 Carbon Dioxide, Total 21 18-29 Calcium, Serum 9.6 8.7-10.2 Protein, Total, Serum 7.3 6.0-8.5 Albumin, Serum 4.1 3.5-5.5 Globulin, Total 3.2 1.5-4.5 A/G Ratio 1.3 1.2-2.2 Bilirubin, Total 0.2 0.0-1.2 Alkaline Phosphatase, S 49 39-117 AST (SGOT) 9 0-40 ALT (SGPT) 5 0-32 PROCEDURES Procedure Date Ordered Result Body Site LAB [facility] August 31, 2016 VENIPUNCT, ROUTINE* August 31, 2016 IMMUNIZATIONS No Known Immunizations MEDICAL (GENERAL) HISTORY [...] salpingectomy Surgical History Fasciatomy 03/2015 Surgical History [place] filter placement 03/2015 Surgical History Right leg Tibia, Fibula fracture repair- rods/pins placement 03/2015 Hospitalization History Right leg fracture 03/2015 Hospitalization History Suicide attempt, depression, anxiety--[facility] 12/31/15
--- OUTSIDE RECORDS SUMMARY | 2017-04-17 13:02 | XMS REPORT | Continuity of Care Document ---
Author Author [facility] Organization [facility] Address Unknown Phone Unavailable Allergies Active Description Code Type Severity Reaction Onset Reported/Identified Relationship to Patient Clinical Status Yes codeine [id number] Drug Allergy Severe ITCHING, HIVES, 11/03/2014 Yes latex [id number] Drug Allergy Severe BLISTERS 11/03/2014 Yes penicillin [id number] Drug Allergy Severe ITCHING 11/03/2014 Yes Sulfa (Sulfonamide Antibiotics) [id number] Drug Allergy Unknown RASH 2014 Yes latex latex Drug Allergy Unknown UNKNOWN 03/29/2015 Yes Penicillins Penicillins Drug Allergy Unknown UNKNOWN 03/29/2015 Yes Sulfa (Sulfonamide Antibiotics) Sulfa (Sulfonamide Antibiotics) Drug Allergy Unknown UNKNOWN 03/29/2015 Yes acetaminophen acetaminophen Drug Allergy Moderate THROAT SWELLING 2014 Yes CODEINE SULFATE CODEINE SULFATE Drug Allergy Moderate BODY FELT LIKE ON FIRE, BLISTERS 03/30/2015 Yes hydrocodone hydrocodone Drug Allergy Moderate THROAT SWELLING 04/15/2015 Yes latex latex Drug Allergy Moderate BLISTERS AND WELTS 04/15/2015 Yes Penicillins Penicillins Drug Allergy Moderate HIVES, THROAT ITCHES 2015 Yes Sulfa (Sulfonamide Antibiotics) Sulfa (Sulfonamide Antibiotics) Drug Allergy Mild RASH 04/15/2015 Yes acetaminophen [id number] Drug Allergy Severe THROAT SWELLING 12/31/2015 Yes hydrocodone [id number] Drug Allergy Severe THROAT SWELLING 12/31/2015 Medications There is no data. Problems Date Dx Coded Attending Type Code Diagnosis Diagnosed By 10/28/2014 KADIE NEVAREZ MD Ot 620.2 10/28/2014 KADIE NEVAREZ MD Ot 626.4 11/03/2014 ASHLEY OBRIEN MD Ot 786.50 11/03/2014 ASHLEY OBRIEN MD Ot V12.54 12/24/2014 KADIE NEVAREZ MD Ot 620.2 12/24/2014 KADIE NEVAREZ MD Ot 626.4 01/08/2015 NWAGWU, ISIDORE O SPECIAL EDUCATOR Ot 745.5 SECUNDUM ATRIAL SEPT DEF 01/08/2015 NWAGWU, ISIDORE O SPECIAL EDUCATOR Ot 780.4 DIZZINESS AND GIDDINESS 01/08/2015 NWAGWU, ISIDORE O SPECIAL EDUCATOR Ot 780.79 OTH MALAISE FATIGUE 01/08/2015 NWAGWU, ISIDORE O SPECIAL EDUCATOR Ot 785.1 PALPITATIONS 01/08/2015 NWAGWU, ISIDORE O SPECIAL EDUCATOR Ot 786.50 CHEST PAIN NOS 01/08/2015 NWAGWU, ISIDORE O SPECIAL EDUCATOR Ot V12.54 PERSONAL HX OF TIA, CEREBRAL INFARCTION 01/25/2015 LAWRENCE WHITESIDE SPECIAL EDUCATOR Ot E11.9 TYPE 2 DIABETES MELLITUS WITHOUT COMPLIC 01/25/2015 LAWRENCE WHITESIDE SPECIAL EDUCATOR Ot N39.0 URINARY TRACT INFECTION, SITE NOT SPECIF 01/25/2015 LAWRENCE WHITESIDE SPECIAL EDUCATOR Ot R06.02 SHORTNESS OF BREATH 02/04/2015 NWAGWU, ISIDORE O SPECIAL EDUCATOR Ot 745.5 02/04/2015 NWAGWU, ISIDORE O SPECIAL EDUCATOR Ot 780.4 02/04/2015 NWAGWU, ISIDORE O SPECIAL EDUCATOR Ot 780.79 02/04/2015 NWAGWU, ISIDORE O SPECIAL EDUCATOR Ot 785.1 02/04/2015 NWAGWU, ISIDORE O SPECIAL EDUCATOR Ot 786.50 02/04/2015 NWAGWU, ISIDORE O SPECIAL EDUCATOR Ot V12.54 02/21/2015 JARED FISCHER, KENYATTA Andrews [...] MD Ot R40.4 03/29/2015 NWAGWU, ISIDORE O SPECIAL EDUCATOR Ot 745.5 03/29/2015 NWAGWU, ISIDORE O SPECIAL EDUCATOR Ot 780.4 03/29/2015 NWAGWU, ISIDORE O SPECIAL EDUCATOR Ot 780.79 03/29/2015 NWAGWU, ISIDORE O SPECIAL EDUCATOR Ot 785.1 03/29/2015 NWAGWU, ISIDORE O SPECIAL EDUCATOR Ot 786.50 03/29/2015 NWAGWU, ISIDORE O SPECIAL EDUCATOR Ot V12.54 03/29/2015 EAGLE FISCHER, VALERIA Pagan [...] K58.9 IRRITABLE BOWEL SYNDROME WITHOUT DIARRHEA 03/29/2015 Klaumann MD, Sonya A F K59.00 CONSTIPATION, UNSPECIFIED 03/29/2015 Marianne FISCHER, Sonya Potts M41.9 SCOLIOSIS, UNSPECIFIED 03/29/2015 Marianne FISCHER, Sonya Potts S82.141A DISPLACED BICONDYLAR FRACTURE OF RIGHT TIBIA, INIT 03/29/2015 Marianne FISCHER, Sonya Potts 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, IN 03/29/2015 Marianne FISCHER, Sonya Potts W17.89XA OTHER FALL FROM ONE LEVEL TO ANOTHER, INITIAL ENCO 03/29/2015 Marianne FISCHER, Sonya Potts Z79.82 SKILLED NURSING (CURRENT) USE OF ASPIRIN 03/31/2015 EAGLE FISCHER, [...] JARED FISCHER, KENYATTA Andrews Ot Z79.899 OTHER DIRECTOR OF CORPORATE MARKETING (CURRENT) DRUG THERAPY 05/05/2015 JARED FISCHER, KENYATTA Andrews Ot Z86.73 PRSNL HX OF TIA (TIA), AND CEREB INFRC W 09/17/2015 JOSE GONZALEZ DOA Darryl Ot F17.210 NICOTINE DEPENDENCE, CIGARETTES, UNCOMPL 09/17/2015 LISA DO JUAN K Ot N39.0 URINARY TRACT INFECTION, SITE NOT SPECIF 09/17/2015 LISA JOSE HURTADOA K Ot R20.2 PARESTHESIA OF SKIN 09/17/2015 JOSE GONZALEZ DOA K Ot R51 HEADACHE 09/18/2015 LISA JOSE HURTADOA K Ot F17.210 NICOTINE DEPENDENCE, CIGARETTES, UNCOMPL 09/18/2015 LISA DO JUAN K Ot N39.0 URINARY TRACT INFECTION, SITE NOT SPECIF 09/18/2015 JOSE GONZALEZ DOA K Ot R20.2 PARESTHESIA OF SKIN 09/18/2015 JUAN GONZALEZ DO Ot R51 HEADACHE 09/21/2015 SANTINO LOPEZ MD, Ot Z53.21 PROC/TRTMT NOT CRD OUT D/T PT LV BEF SEE 09/23/2015 SANTINO LOPEZ MD, Ot Z53.21 PROC/TRTMT NOT CRD OUT D/T PT LV BEF SEE 10/03/2015 SANTINO LOPEZ MD, Ot Z53.21 PROC/TRTMT NOT CRD OUT D/T PT LV BEF SEE 10/17/2015 NWAGWU, ISIDORE O SPECIAL EDUCATOR Ot 745.5 10/17/2015 NWAGWU, ISIDORE O SPECIAL EDUCATOR Ot 780.4 10/17/2015 NWAGWU, ISIDORE O SPECIAL EDUCATOR Ot 780.79 10/17/2015 NWAGWU, ISIDORE O SPECIAL EDUCATOR Ot 785.1 10/17/2015 NWAGWU, ISIDORE O SPECIAL EDUCATOR Ot 786.50 10/17/2015 NWAGWU, ISIDORE O SPECIAL EDUCATOR Ot V12.54 10/17/2015 KADIE NEVAREZ MD Ot [...] 10/17/2015 KENYATTA COLEMAN MD Ot Z79.899 OTHER SKILLED NURSING (CURRENT) DRUG THERAPY 10/17/2015 KENYATTA COLEMAN MD Ot Z86.73 PRSNL HX OF TIA (TIA), AND CEREB INFRC W 10/17/2015 SANTINO LOPEZ MD Ot Z53.21 PROC/TRTMT NOT CRD OUT D/T PT LV BEF SEE 10/21/2015 KADIE NEVAREZ MD Ot R16.1 SPLENOMEGALY, NOT ELSEWHERE CLASSIFIED 10/21/2015 GERI MD, KADIE N Ot R16.1 SPLENOMEGALY, NOT ELSEWHERE CLASSIFIED 10/28/2015 KADIE NEVAREZ MD Ot R16.1 SPLENOMEGALY, NOT ELSEWHERE CLASSIFIED 11/20/2015 LAWRENCE WHITESIDE SPECIAL EDUCATOR Ot J06.9 ACUTE UPPER RESPIRATORY INFECTION, UNSPE 11/20/2015 LAWRENCE WHITESIDE SPECIAL EDUCATOR Ot J40 BRONCHITIS, NOT SPECIFIED ACUTE OR CH 11/20/2015 LAWRENCE WHITESIDE SPECIAL EDUCATOR Ot R05 COUGH 11/24/2015 LAWRENCE WHITESIDE SPECIAL EDUCATOR Ot J06.9 ACUTE UPPER RESPIRATORY INFECTION, UNSPE 11/24/2015 LAWRENCE WHITESIDE SPECIAL EDUCATOR Ot J40 BRONCHITIS, NOT SPECIFIED ACUTE OR CH 11/24/2015 LAWRENCE WHITESIDE SPECIAL EDUCATOR Ot R05 COUGH 12/31/2015 NWAGWU, ISIDORE O SPECIAL EDUCATOR Ot 745.5 12/31/2015 NWAGWU, ISIDORE O SPECIAL EDUCATOR Ot 780.4 12/31/2015 NWAGWU, ISIDORE O SPECIAL EDUCATOR Ot 780.79 12/31/2015 NWAGWU, ISIDORE O SPECIAL EDUCATOR Ot 785.1 12/31/2015 NWAGWU, ISIDORE O SPECIAL EDUCATOR Ot 786.50 12/31/2015 NWAGWU, ISIDORE O SPECIAL EDUCATOR Ot V12.54 12/31/2015 KADIE NEVAREZ MD Ot R40.4 TRANSIENT ALTERATION OF AWARENESS 12/31/2015 KENYATTA COLEMAN MD Ot D64.9 ANEMIA, UNSPECIFIED 12/31/2015 KENYATTA COLEMAN MD Ot E11.9 TYPE 2 DIABETES MELLITUS WITHOUT COMPLIC 12/31/2015 KENYATTA COLEMAN MD Ot E66.9 OBESITY, UNSPECIFIED 12/31/2015 KENYTATA COLEMAN MD Ot F17.210 NICOTINE DEPENDENCE, CIGARETTES, UNCOMPL 12/31/2015 KENYATTA COLEMAN MD Ot I51.9 HEART DISEASE, UNSPECIFIED 12/31/2015 KENYATTA COLEMAN MD Ot M54.5 LOW BACK PAIN 12/31/2015 KENYATTA COLEMAN MD Ot Z79.899 OTHER DIRECTOR OF CORPORATE MARKETING (CURRENT) DRUG THERAPY 12/31/2015 KENYATTA COLEMAN MD Ot Z86.73 PRSNL HX OF TIA (TIA), AND CEREB INFRC W 12/31/2015 KADIE NEVAREZ MD Ot R16.1 SPLENOMEGALY, NOT ELSEWHERE CLASSIFIED 12/31/2015 NWAGWU, ISIDORE O SPECIAL EDUCATOR Ot 745.5 12/31/2015 NWAGWU, ISIDORE O SPECIAL EDUCATOR Ot 780.4 12/31/2015 NWAGWU, ISIDORE O SPECIAL EDUCATOR Ot 780.79 12/31/2015 NWAGWU, ISIDORE O SPECIAL EDUCATOR Ot 785.1 12/31/2015 NWAGWU, ISIDORE O SPECIAL EDUCATOR Ot 786.50 12/31/2015 NWAGWU, ISIDORE O SPECIAL EDUCATOR Ot V12.54 12/31/2015 KENYATTA COLEMAN MD Ot [...] 12/31/2015 KENYATTA COLEMAN MD Ot Z79.899 OTHER SKILLED NURSING (CURRENT) DRUG THERAPY 12/31/2015 KENYATTA COLEMAN MD Ot Z86.73 PRSNL HX OF TIA (TIA), AND CEREB INFRC W 12/31/2015 NWAGWU, ISIDORE O SPECIAL EDUCATOR Ot 745.5 12/31/2015 NWAGWU, ISIDORE O SPECIAL EDUCATOR Ot 780.4 12/31/2015 NWAGWU, ISIDORE O SPECIAL EDUCATOR Ot 780.79 12/31/2015 NWAGWU, ISIDORE O SPECIAL EDUCATOR Ot 785.1 12/31/2015 NWAGWU, ISIDORE O SPECIAL EDUCATOR Ot 786.50 12/31/2015 NWAGWU, ISIDORE O SPECIAL EDUCATOR Ot V12.54 12/31/2015 KENYATTA COLEMAN MD Ot [...] 12/31/2015 KENYATTA COLEMAN MD Ot Z79.899 OTHER DIRECTOR OF CORPORATE MARKETING (CURRENT) DRUG THERAPY 12/31/2015 KENYATTA COLEMAN MD [...] HINOJOSA MD, Ot T43.592A POISONING BY OTH ANTIPSYCHOT/NEUROLEPT, 01/01/2016 HIEU HINOJOSA MD Ot Z79.899 OTHER DIRECTOR OF CORPORATE MARKETING (CURRENT) DRUG THERAPY 01/01/2016 HIEU HINOJOSA MD Ot Z86.718 PERSONAL HISTORY OF OTHER VENOUS [...] HINOJOSA MD, Ot T43.592A POISONING BY OTH ANTIPSYCHOT/NEUROLEPT, 01/01/2016 HIEU HINOJOSA MD Ot Z79.899 OTHER SKILLED NURSING (CURRENT) DRUG THERAPY 01/01/2016 HIEU HINOJOSA MD, Ot Z86.718 PERSONAL HISTORY OF OTHER VENOUS THROMBO 01/02/2016 NWAGWU, ISIDORE O SPECIAL EDUCATOR Ot 745.5 01/02/2016 NWAGWU, ISIDORE O SPECIAL EDUCATOR Ot 780.4 01/02/2016 NWAGWU, ISIDORE O SPECIAL EDUCATOR Ot 780.79 01/02/2016 NWAGWU, ISIDORE O SPECIAL EDUCATOR Ot 785.1 01/02/2016 NWAGWU, ISIDORE O SPECIAL EDUCATOR Ot 786.50 01/02/2016 NWAGWU, ISIDORE O SPECIAL EDUCATOR Ot V12.54 01/02/2016 KADIE NEVAREZ MD Ot [...] 01/02/2016 KENYATTA COLEMAN MD Ot Z79.899 OTHER SKILLED NURSING (CURRENT) DRUG THERAPY 01/02/2016 KENYATTA COLEMAN MD Ot Z86.73 PRSNL HX OF TIA (TIA), AND CEREB INFRC W 01/02/2016 KADIE NEVAREZ MD Ot R16.1 SPLENOMEGALY, NOT ELSEWHERE CLASSIFIED 04/12/2016 NWAGWU, ISIDORE O SPECIAL EDUCATOR Ot 745.5 04/12/2016 NWAGWU, ISIDORE O SPECIAL EDUCATOR Ot 780.4 04/12/2016 NWAGWU, ISIDORE O SPECIAL EDUCATOR Ot 780.79 04/12/2016 NWAGWU, ISIDORE O SPECIAL EDUCATOR Ot 785.1 04/12/2016 NWAGWU, ISIDORE O SPECIAL EDUCATOR Ot 786.50 04/12/2016 NWAGWU, ISIDORE O SPECIAL EDUCATOR Ot V12.54 04/12/2016 KADIE NEVAREZ MD Ot [...] 04/12/2016 KENYATTA COLEMAN MD Ot Z79.899 OTHER DIRECTOR OF CORPORATE MARKETING (CURRENT) DRUG THERAPY 04/12/2016 KENYATTA COLEMAN MD Ot Z86.73 PRSNL HX OF TIA (TIA), AND CEREB INFRC W 04/12/2016 GERI FISCHER, KADIE Richardson Ot R16.1 SPLENOMEGALY, NOT ELSEWHERE CLASSIFIED 04/14/2016 JUAN GONZALEZ DO Ot E11.9 TYPE 2 DIABETES MELLITUS WITHOUT COMPLIC 04/14/2016 JUAN GONZALEZ DO Ot S93.401A SPRAIN OF UNSPECIFIED LIGAMENT OF RIGHT 04/14/2016 JUAN GONZALEZ DO Ot S99.911A UNSPECIFIED INJURY OF RIGHT ANKLE, INITI 04/14/2016 JUAN GONZALEZ DO Ot W17.2XXA FALL INTO HOLE, INITIAL ENCOUNTER 04/14/2016 JUAN GONZALEZ DO Ot Y99.8 OTHER EXTERNAL CAUSE STATUS 04/14/2016 JUAN GONZALEZ DO Ot Z86.718 PERSONAL HISTORY OF OTHER VENOUS THROMBO 04/23/2016 JUAN GONZALEZ DO Ot E11.9 TYPE 2 DIABETES MELLITUS WITHOUT COMPLIC 04/23/2016 JAUN GONZALEZ DO Ot S93.401A SPRAIN OF UNSPECIFIED LIGAMENT OF RIGHT 04/23/2016 JUAN GONZALEZ DO Ot S99.911A UNSPECIFIED INJURY OF RIGHT ANKLE, INITI 04/23/2016 JUAN GONZALEZ DO Ot W17.2XXA FALL INTO HOLE, INITIAL ENCOUNTER 04/23/2016 JUAN GONZALEZ DO Ot Y99.8 OTHER EXTERNAL CAUSE STATUS 04/23/2016 JUAN GONZALEZ DO Ot Z86.718 PERSONAL HISTORY OF OTHER VENOUS THROMBO 08/23/2016 Ot E11.9 TYPE 2 DIABETES MELLITUS WITHOUT COMPLIC 08/23/2016 Ot R10.31 RIGHT LOWER QUADRANT PAIN 08/23/2016 Ot R11.2 NAUSEA WITH VOMITING, UNSPECIFIED 08/23/2016 Ot Z79.82 DIRECTOR OF CORPORATE MARKETING ( CURRENT) USE OF ASPIRIN 08/23/2016 Ot Z79.899 OTHER SKILLED NURSING (CURRENT) DRUG THERAPY 08/23/2016 Ot Z86.718 PERSONAL HISTORY OF OTHER VENOUS THROMBO 08/23/2016 Ot Z87.442 PERSONAL HISTORY OF URINARY CALCULI 08/23/2016 Ot Z95.828 PRESENCE OF OTHER VASCULAR IMPLANTS AND 08/23/2016 LAWRENCE WHITESIDE SPECIAL EDUCATOR Ot E11.9 TYPE 2 DIABETES MELLITUS WITHOUT COMPLIC 08/23/2016 LAWRENCE WHITESIDE SPECIAL EDUCATOR Ot R10.31 RIGHT LOWER QUADRANT PAIN 08/23/2016 LAWRENCE WHITESIDE SPECIAL EDUCATOR Ot Z79.82 SKILLED NURSING (CURRENT) USE OF ASPIRIN 08/23/2016 LAWRENCE WHITESIDE SPECIAL EDUCATOR Ot Z79.899 OTHER SKILLED NURSING (CURRENT) DRUG THERAPY 08/23/2016 LAWRENCE WHITESIDE SPECIAL EDUCATOR Ot Z86.718 PERSONAL HISTORY OF OTHER VENOUS THROMBO 08/24/2016 LAWRENCE WHITESIDE SPECIAL EDUCATOR Ot E11.9 TYPE 2 DIABETES MELLITUS WITHOUT COMPLIC 08/24/2016 LAWRENCE WHITESIDE SPECIAL EDUCATOR Ot R10.31 RIGHT LOWER QUADRANT PAIN 08/24/2016 LAWRENCE WHITESIDE SPECIAL EDUCATOR Ot Z79.82 SKILLED NURSING (CURRENT) USE OF ASPIRIN 08/24/2016 LAWRENCE WHITESIDE SPECIAL EDUCATOR Ot Z79.899 OTHER SKILLED NURSING (CURRENT) DRUG THERAPY 08/24/2016 LAWRENCE WHITESIDE SPECIAL EDUCATOR Ot Z86.718 PERSONAL HISTORY OF OTHER VENOUS THROMBO 08/25/2016 LAWRENCE WHITESIDE SPECIAL EDUCATOR Ot E11.9 TYPE 2 DIABETES MELLITUS WITHOUT COMPLIC 08/25/2016 LAWRENCE WHITESIDE SPECIAL EDUCATOR Ot R10.31 RIGHT LOWER QUADRANT PAIN 08/25/2016 LAWRENCE WHITESIDE SPECIAL EDUCATOR Ot Z79.82 DIRECTOR OF CORPORATE MARKETING (CURRENT) USE OF ASPIRIN 08/25/2016 LAWRENCE WHITESIDE SPECIAL EDUCATOR Ot Z79.899 OTHER SKILLED NURSING (CURRENT) DRUG THERAPY 08/25/2016 LAWRENCE WHITESIDE SPECIAL EDUCATOR Ot Z86.718 PERSONAL HISTORY OF OTHER VENOUS THROMBO 11/22/2016 LAWRENCE WHITESIDE SPECIAL EDUCATOR Ot E11.9 TYPE 2 DIABETES MELLITUS WITHOUT [...] ANOT 11/22/2016 LAWRENCE WHITESIDE APRN Ot Z79.82 SKILLED NURSING (CURRENT) USE OF ASPIRIN 11/22/2016 LAWRENCE WHITESIDE [...] WHITESIDE APRN Ot Z98.51 TUBAL LIGATION STATUS 01/25/2017 MAURIZIO THURMAN MD Ot E11.9 TYPE 2 DIABETES MELLITUS WITHOUT COMPLIC 01/25/2017 MAURIZIO THURMAN MD Ot F17.210 NICOTINE DEPENDENCE, CIGARETTES, UNCOMPL 01/25/2017 MAURIZIO THURMAN MD Ot F31.9 BIPOLAR DISORDER, UNSPECIFIED 01/25/2017 MAURIZIO THURMAN MD Ot F41.9 ANXIETY DISORDER, UNSPECIFIED 01/25/2017 MAURIZIO THURMAN MD Ot K02.9 DENTAL CARIES, UNSPECIFIED 01/25/2017 MAURIZIO THURMAN MD Ot Z86.73 PRSNL HX OF TIA (TIA), AND CEREB INFRC W 01/27/2017 MARIA ELENA MORA MD Ot E11.9 TYPE 2 DIABETES MELLITUS WITHOUT COMPLIC 01/27/2017 MARIA ELENA MORA MD Ot F31.9 BIPOLAR DISORDER, UNSPECIFIED 01/27/2017 MARIA ELENA MORA MD Ot F41.9 ANXIETY DISORDER, UNSPECIFIED 01/27/2017 MARIA ELENA MORA MD Ot F43.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 DISORDER, UNSPECIF 01/27/2017 MARIA ELENA MORA MD Ot F90.9 ATTENTION-DEFICIT HYPERACTIVITY DISORDER 01/27/2017 MARIA ELENA MORA MD Ot G44.209 TENSION-TYPE HEADACHE, UNSPECIFIED, NOT 01/27/2017 MARIA ELENA MORA MD Ot G89.18 OTHER ACUTE POSTPROCEDURAL PAIN 01/27/2017 MARIA ELENA MORA MD Ot J45.909 UNSPECIFIED ASTHMA, UNCOMPLICATED 01/27/2017 MARIA ELENA MORA MD Ot R20.2 PARESTHESIA OF SKIN 01/27/2017 MARIA ELENA MORA MD Ot R51 HEADACHE 01/27/2017 MARIA ELENA MORA MD Ot Z77.22 CNTCT W AND EXPSR TO ENVIRON TOBACCO SMO 01/27/2017 MARIA ELENA MORA MD Ot Z79.82 SKILLED NURSING (CURRENT) USE OF ASPIRIN 01/27/2017 MARIA ELENA MORA MD Ot Z82.49 FAMILY HX OF ISCHEM HEART DIS AND OTH DI 01/27/2017 AMRIA ELENA MORA MD Ot Z86.718 PERSONAL HISTORY OF OTHER VENOUS THROMBO 01/27/2017 MARIA ELENA MORA MD Ot Z86.73 PRSNL HX OF TIA (TIA), AND CEREB INFRC W 01/27/2017 MARIA ELENA MORA MD Ot Z87.19 PERSONAL HISTORY OF OTHER DISEASES OF 01/27/2017 MARIA ELENA MORA MD, Ot Z87.442 PERSONAL HISTORY OF URINARY CALCULI 01/27/2017 MARIA ELENA MORA MD, Ot Z98.51 TUBAL LIGATION STATUS 01/31/2017 MARIA ELENA MORA MD, Ot E11.9 TYPE 2 DIABETES MELLITUS WITHOUT COMPLIC 01/31/2017 MARIA ELENA MORA MD, Ot F31.9 BIPOLAR DISORDER, UNSPECIFIED 01/31/2017 MARIA ELENA MORA MD, Ot F41.9 ANXIETY DISORDER, UNSPECIFIED 01/31/2017 MARIA ELENA MORA MD, Ot F43.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 DISORDER, UNSPECIF 01/31/2017 MARIA ELENA MORA MD Ot F90.9 ATTENTION-DEFICIT HYPERACTIVITY DISORDER 01/31/2017 MARIA ELENA MORA MD, Ot G44.209 TENSION-TYPE HEADACHE, UNSPECIFIED, NOT 01/31/2017 MARIA ELENA MORA MD Ot G89.18 OTHER ACUTE POSTPROCEDURAL PAIN 01/31/2017 MARIA ELENA MORA MD, Ot J45.909 UNSPECIFIED ASTHMA, UNCOMPLICATED 01/31/2017 MARIA ELENA MORA MD, Ot R20.2 PARESTHESIA OF SKIN 01/31/2017 MARIA ELENA MORA MD, Ot R51 HEADACHE 01/31/2017 MARIA ELENA MORA MD, Ot Z77.22 CNTCT W AND EXPSR TO ENVIRON TOBACCO SMO 01/31/2017 MARIA ELENA MORA MD, Ot Z79.82 SKILLED NURSING (CURRENT) USE OF ASPIRIN 01/31/2017 MARIA ELENA MORA MD, Ot Z82.49 FAMILY HX OF ISCHEM HEART DIS AND OTH DI 01/31/2017 MARIA ELENA MORA MD, Ot Z86.718 PERSONAL HISTORY OF OTHER VENOUS THROMBO 01/31/2017 MARIA ELENA MORA MD, Ot Z86.73 PRSNL HX OF TIA (TIA), AND CEREB INFRC W 01/31/2017 MARIA ELENA MORA MD, Ot Z87.19 PERSONAL HISTORY OF OTHER DISEASES OF 01/31/2017 MARIA ELENA MORA MD, Ot Z87.442 PERSONAL HISTORY OF URINARY CALCULI 01/31/2017 MORGAN FISCHER, MARIA ELENA Mao Ot Z98.51 TUBAL LIGATION STATUS 03/24/2017 LAWRENCE WHITESIDE APRN Ot E11.9 TYPE 2 DIABETES MELLITUS WITHOUT COMPLIC 03/24/2017 LAWRENCE WHITESIDE APRN Ot F17.210 NICOTINE DEPENDENCE, CIGARETTES, UNCOMPL 03/24/2017 LAWRENCE WHITESIDE APRN Ot F31.9 BIPOLAR DISORDER, UNSPECIFIED 03/24/2017 LAWRENCE WHITESIDE APRN Ot F41.9 ANXIETY DISORDER, UNSPECIFIED 03/24/2017 LAWRENCE WHITESIDE APRN Ot F43.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 DISORDER, UNSPECIF 03/24/2017 LAWRENCE WHITESIDE APRN Ot F90.9 ATTENTION-DEFICIT HYPERACTIVITY DISORDER 03/24/2017 LAWRENCE WHITESIDE APRN Ot G43.909 MIGRAINE, UNSP, NOT INTRACTABLE, WITHOUT 03/24/2017 LAWRENCE WHITESIDE APRN Ot J45.909 UNSPECIFIED ASTHMA, UNCOMPLICATED 03/24/2017 LAWRENCE WHITESIDE APRN Ot M41.9 SCOLIOSIS, UNSPECIFIED 03/24/2017 LAWRENCE WHITESIDE APRN Ot T83.32XA DISPLACEMENT OF INTRAUTERINE CONTRACEPTI 03/24/2017 LAWRENCE WHITESIDE APRN Ot Z79.82 DIRECTOR OF CORPORATE MARKETING (CURRENT) USE OF ASPIRIN 03/24/2017 LAWRENCE WHITESIDE APRN Ot Z82.49 FAMILY HX OF ISCHEM HEART DIS AND OTH DI 03/24/2017 LAWRENCE WHITESIDE APRN Ot Z86.018 PERSONAL HISTORY OF OTHER BENIGN NEOPLAS 03/24/2017 LAWRENCE WHITESIDE APRN Ot Z86.73 PRSNL HX OF TIA (TIA), AND CEREB INFRC W 03/24/2017 LAWRENCE WHITESIDE APRN Ot Z87.19 PERSONAL HISTORY OF OTHER DISEASES OF TH 03/24/2017 LAWRENCE WHITESIDE APRN Ot Z87.440 PERSONAL HISTORY OF URINARY (TRACT) INFE 03/24/2017 LAWRENCE WHITESIDE APRN Ot Z95.828 PRESENCE OF OTHER VASCULAR IMPLANTS AND 03/24/2017 LAWRENCE WHITESIDE APRN Ot Z98.51 TUBAL LIGATION STATUS Procedures Code Description Performed By Performed On INSERTION OF INFUSION DEV INTO SUP VENA CAVA, PERC Sonya Lopes MD 03/29/2015 [id number] INSERTION OF INTRALUM DEV INTO INF VENA CAVA, PERC Brittani Ambriz MD [id number] EXCISION OF RIGHT UPPER LEG SKIN, EXTERNAL APPROAC Miles Ortiz MD 03/29/2015 [id number] REPLACE R LOW LEG SKIN W AUTOL SUB, PART THICK, EX Miles Ortiz MD 03/29/2015 [id number] DIVISION OF R LOW LEG SUBCU/FASCIA, OPEN APPROACH Sonya Lopes MD 03/29/2015 [id number] REPAIR R LOW LEG SUBCU/ FASCIA, OPEN APPROACH Miles Ortiz MD [id number] REPAIR R LOW LEG SUBCU/ FASCIA, PERC APPROACH Sonya Lopes MD [id number] EXCISION OF RIGHT LOWER LEG MUSCLE, OPEN APPROACH Miles Ortiz MD 03/29/2015 [id number] REMOVAL OF EXT FIX FROM R TIBIA, AUTOMOTIVE REPAIR TECHNICIAN APPROACH Sonya Lopes MD 03/29/2015 [id number] REPOSITION RIGHT TIBIA WITH INT FIX, OPEN APPROACH Sonya Lopes MD 03/29/2015 [id number] REPOSITION RIGHT TIBIA WITH EXT FIX, PERC APPROACH Sonya Lopes MD 03/29/2015 [id number] IRRIGATION OF SKIN AND MUCOUS MEMBRANES USING IRRI Sonya Lopes MD 03/29/2015 [id number] MEASURE CARDIAC ELECTR ACTIVITY, GUIDANCE, AUTOMOTIVE REPAIR TECHNICIAN Sonya Lopes MD 03/29/2015 [id number] FLUOROSCOPY OF INF VENA CAVA USING L OSM CONTRAST, Brittani Ambriz MD 03/29/2015 <section xmlns="urn:hl7-org:v3" xmlns:xsi= "http://www.w3.org/2001/XMLSchema-instance"> <templateId root= "[id number]" /> <templateId root= "[id number]" /> <code codeSystemName="LOINC" codeSystem= "2.840.1.302325.6.1" code="74331-5" displayName="Results" /> <title>Results< /title> <text> <table> <thead> <tr> <th>Test</th> <th>Result</th> <th>Range</th> </tr> </thead> < tbody> <tr> <th colspan="10">CBC W/DIFF - 03/29/15 19:30</th> </tr> <tr> <td>EOSINOPHIL #</td> <td>0.1 k/cumm</ td> <td>0.1-0.5</td> </tr> <tr> <td>EOSINOPHIL & #37;</td> <td>1 %</td> <td>2-4</td> </tr> < tr> <td>GRANULOCYTE #</td> <td>9.5 k/cumm</td> <td> 2.0-9.0</td> </tr> <tr> <td>GRANULOCYTE %</td> <td>73 %</td> <td>50-75</td> </tr> <tr> <td>LYMPHOCYTE #</td> <td>2.7 k/cumm</td> <td>1.0-4.0</td> </tr> <tr> <td>LYMPHOCYTE %</td> <td>20 %< /td> <td>20-30</td> </tr> <tr> <td>MEAN CELL HGB </td> <td>26.1 pg</td> <td>27.0-33.0</td> </tr> <tr> <td>MEAN CELL HGB CONCENTRATION</td> <td>31.4 g/dL</td> <td>32.0-37.0</td> </tr> <tr> <td>MEAN CELL VOLUME</td> <td>83.1 fl</td> <td>80.0-100.0</td> </tr> <tr> <td>MONOCYTE #</td> <td>0.8 k/cumm</td> <td>0.1-1.0</td> </tr> <tr> <td>MONOCYTE %</td> <td>6 %</td> <td>4-6</td> </tr> <tr> < td>RED BLOOD CELL</td> <td>4.26 m/cumm</td> <td>4.00-6.00</td > </tr> <tr> <td>RED CELL DISTRIBUTION WIDTH</td> <td>15.9 %</td> <td>11.0-15.6</td> </tr> <tr> <td>WHITE BLOOD CELL</td> <td>13.1 k/cumm</td> <td>5.0- 10.0</td> </tr> <tr> <td>HEMOGLOBIN</td> <td> 11.1 gm/dL</td> <td>12.0-16.0</td> </tr> <tr> < td>HEMATOCRIT</td> <td>35.4 %</td> <td>37.0-47.0</td> </tr> <tr> <td>PLATELET COUNT</td> <td>376 k/cumm</ td> <td>150-400</td> </tr> <tr> <th colspan="10 ">PROTHROMBIN TIME WITH INR - 03/29/15 19:30</th> </tr> <tr> <td>INTERNATIONAL NORMAL RATIO</td> <td>1.1 </td> <td>0.9 -1.1</td> </tr> <tr> <td>PROTHROMBIN TIME</td> < td>12.3 sec</td> <td>9.3-12.2</td> </tr> <tr> < th colspan="10">METABOLIC PANEL, COMPREHN - 03/29/15 19:30</th> </tr> <tr> <td>POTASSIUM</td> <td>3.4 mmol/L</td> <td> 3.5-5.3</td> </tr> <tr> <td>EST GFR (MDRD)</td> <td>> 60 mL/min</td> <td>> 59</td> </tr> <tr> <td>ANION GAP</td> <td>13 mmol/L</td> <td>5-15</td> </tr> <tr> <td>EST CrCl (CG)</td> <td>> 60 mL/min </td> <td>> 59</td> </tr> <tr> <td>GLUCOSE</ td> <td>77 mg/dL</td> <td>70-99</td> </tr> <tr> <td>CALCIUM</td> <td>8.8 mg/dL</td> <td>8.5-10.1</td > </tr> <tr> <td>BLOOD UREA NITROGEN</td> <td>7 mg/dL</td> <td>7-20</td> </tr> <tr> <td> CREATININE</td> <td>0.8 mg/dL</td> <td>0.6-1.0</td> </ tr> <tr> <td>SODIUM</td> <td>137 mmol/L</td> < td>135-148</td> </tr> <tr> <td>CHLORIDE</td> <td >100 mmol/L</td> <td>98-110</td> </tr> <tr> <td> AST/SGOT</td> <td>14 Units/L</td> <td>10-37</td> </tr> <tr> <td>ALT/SGPT</td> <td>17 Units/L</td> < td>< 66</td> </tr> <tr> <td>CARBON DIOXIDE</td> <td>24 mmol/L</td> <td>21-32</td> </tr> <tr> <td>TOTAL PROTEIN</td> <td>7.9 gm/dL</td> <td>6.4-8.2</td> </tr> <tr> <td>ALBUMIN</td> <td>3.7 gm/dL</td> <td>3.4-5.0</td> </tr> <tr> <td>BILI TOTAL</td> <td>0.3 mg/dL</td> <td>0.0-1.0</td> </tr> <tr> <td>ALKALINE PHOSPHATASE TOTAL</td> <td>49 IU/L</td> <td>45-117</td> </tr> <tr> <th colspan="10">GLUCOSE ( POC) - 03/30/15 06:02</th> </tr> <tr> <td>GLUCOSE (POC)</ td> <td>105 mg/dL</td> <td>70-99</td> </tr> <tr > <th colspan="10">GLUCOSE (POC) - 03/30/15 08:44</th> </tr> <tr> <td>GLUCOSE (POC)</td> <td>106 mg/dL</td> < td>70-99</td> </tr> <tr> <th colspan="10">CBC - 03/30/15 09:52</th> </tr> <tr> <td>MEAN CELL HGB</td> <td >26.5 pg</td> <td>27.0-33.0</td> </tr> <tr> <td> MEAN CELL HGB CONCENTRATION</td> <td>32.0 g/dL</td> <td>32.0- 37.0</td> </tr> <tr> <td>MEAN CELL VOLUME</td> < td>83.0 fl</td> <td>80.0-100.0</td> </tr> <tr> < td>RED BLOOD CELL</td> <td>4.07 m/cumm</td> <td>4.00-6.00</td > </tr> <tr> <td>RED CELL DISTRIBUTION WIDTH</td> <td>15.5 %</td> <td>11.0-15.6</td> </tr> <tr> <td>WHITE BLOOD CELL</td> <td>9.1 k/cumm</td> <td>5.0- 10.0</td> </tr> <tr> <td>HEMOGLOBIN</td> <td> 10.8 gm/dL</td> <td>12.0-16.0</td> </tr> <tr> < td>HEMATOCRIT</td> <td>33.8 %</td> <td>37.0-47.0</td> </tr> <tr> <td>PLATELET COUNT</td> <td>327 k/cumm</ td> <td>150-400</td> </tr> <tr> <th colspan="10 ">METABOLIC PANEL, COMPREHN - 03/30/15 09:52</th> </tr> <tr> <td>POTASSIUM</td> <td>4.0 mmol/L</td> <td>3.5-5.3</td> </tr> <tr> <td>EST GFR (MDRD)</td> <td>> 60 mL/min</td> <td>> 59</td> </tr> <tr> <td> ANION GAP</td> <td>6 mmol/L</td> <td>5-15</td> </tr> <tr> <td>EST CrCl (CG)</td> <td>> 60 mL/min</td> <td>> 59</td> </tr> <tr> <td>GLUCOSE</td> <td>96 mg/dL</td> <td>70-99</td> </tr> <tr> <td>CALCIUM</td> <td>8.4 mg/dL</td> <td>8.5-10.1</td> < /tr> <tr> <td>BLOOD UREA NITROGEN</td> <td>5 mg/dL</td > <td>7-20</td> </tr> <tr> <td>CREATININE</td> <td>0.6 mg/dL</td> <td>0.6-1.0</td> </tr> <tr> <td>SODIUM</td> <td>134 mmol/L</td> <td>135-148</td> </tr> <tr> <td>CHLORIDE</td> <td>104 mmol/L</td > <td>98-110</td> </tr> <tr> <td>AST/SGOT</td> <td>13 Units/L</td> <td>10-37</td> </tr> <tr> <td>ALT/SGPT</td> <td>15 Units/L</td> <td>< 66</td > </tr> <tr> <td>CARBON DIOXIDE</td> <td>24 mmol /L</td> <td>21-32</td> </tr> <tr> <td>TOTAL PROTEIN</td> <td>7.3 gm/dL</td> <td>6.4-8.2</td> </tr> <tr> <td>ALBUMIN</td> <td>3.4 gm/dL</td> <td> 3.4-5.0</td> </tr> <tr> <td>BILI TOTAL</td> <td> 0.5 mg/dL</td> <td>0.0-1.0</td> </tr> <tr> <td> ALKALINE PHOSPHATASE TOTAL</td> <td>49 IU/L</td> <td>45-117</ td> </tr> <tr> <th colspan="10">MAGNESIUM - 03/30/15 09: 52</th> </tr> <tr> <td>MAGNESIUM</td> <td>1.7 mg /dL</td> <td>1.8-2.4</td> </tr> <tr> < colspan ="10">PROTHROMBIN TIME WITH INR - 03/30/15 10:16</th> </tr> <tr> <td>INTERNATIONAL NORMAL RATIO</td> <td>1.3 </td> <td >0.9-1.1</td> </tr> <tr> <td>PROTHROMBIN TIME</td> <td>14.2 sec</td> <td>9.3-12.2</td> </tr> <tr> < colspan="10">PARTIAL THROMBOPLASTIN TIME - 03/30/15 10:16</th> </ tr> <tr> <td>PARTIAL THROMBOPLASTIN TIME</td> <td>41 sec</td> <td>23-39</td> </tr> <tr> < colspan= "10">GLUCOSE (POC) - 03/30/15 10:34</th> </tr> <tr> <td> GLUCOSE (POC)</td> <td>110 mg/dL</td> <td>70-99</td> </ tr> <tr> <th colspan="10">GLUCOSE (POC) - 03/30/15 14:39</th> </tr> <tr> <td>GLUCOSE (POC)</td> <td>99 mg/dL</ td> <td>70-99</td> </tr> <tr> < colspan="10"> PTT HEPARIN PROTOCOLS - 03/30/15 18:15</th> </tr> <tr> < td>PARTIAL THROMBOPLASTIN TIME</td> <td>84 sec</td> <td>23-39< /td> </tr> <tr> < colspan="10">GLUCOSE (POC) - 21:32</th> </tr> <tr> <td>GLUCOSE (POC)</td> <td>88 mg/dL</td> <td>70-99</td> </tr> <tr> <th colspan="10">CBC - 03/31/15 01:29</th> </tr> <tr> <td> MEAN CELL HGB</td> <td>26.9 pg</td> <td>27.0-33.0</td> </tr> <tr> <td>MEAN CELL HGB CONCENTRATION</td> <td> 31.8 g/dL</td> <td>32.0-37.0</td> </tr> <tr> <td >MEAN CELL VOLUME</td> <td>84.7 fl</td> <td>80.0-100.0</td> </tr> <tr> <td>RED BLOOD CELL</td> <td>3.79 m/ cumm</td> <td>4.00-6.00</td> </tr> <tr> <td>RED CELL DISTRIBUTION WIDTH</td> <td>15.5 %</td> <td>11.0-15.6 </td> </tr> <tr> <td>WHITE BLOOD CELL</td> <td> 10.0 k/cumm</td> <td>5.0-10.0</td> </tr> <tr> < td>HEMOGLOBIN</td> <td>10.2 gm/dL</td> <td>12.0-16.0</td> </tr> <tr> <td>HEMATOCRIT</td> <td>32.1 %</td> <td>37.0-47.0</td> </tr> <tr> <td>PLATELET COUNT</td> <td>296 k/cumm</td> <td>150-400</td> </tr> <tr> <th colspan="10">PTT HEPARIN PROTOCOLS - 03/31/15 01:29</th > </tr> <tr> <td>PARTIAL THROMBOPLASTIN TIME</td> <td>175 sec</td> <td>23-39</td> </tr> <tr> < th colspan="10">METABOLIC PANEL, COMPREHN - 03/31/15 01:29</th> </tr> <tr> <td>POTASSIUM</td> <td>4.0 mmol/L</td> <td> 3.5-5.3</td> </tr> <tr> <td>EST GFR (MDRD)</td> <td>> 60 mL/min</td> <td>> 59</td> </tr> <tr> <td>ANION GAP</td> <td>6 mmol/L</td> <td>5-15</td> </tr> <tr> <td>EST CrCl (CG)</td> <td>> 60 mL/min< /td> <td>> 59</td> </tr> <tr> <td>GLUCOSE</td > <td>81 mg/dL</td> <td>70-99</td> </tr> <tr> <td>CALCIUM</td> <td>8.1 mg/dL</td> <td>8.5-10.1</td> </tr> <tr> <td>BLOOD UREA NITROGEN</td> <td>5 mg/dL</td> <td>7-20</td> </tr> <tr> <td> CREATININE</td> <td>0.6 mg/dL</td> <td>0.6-1.0</td> </ tr> <tr> <td>SODIUM</td> <td>138 mmol/L</td> < td>135-148</td> </tr> <tr> <td>CHLORIDE</td> <td >105 mmol/L</td> <td>98-110</td> </tr> <tr> <td> AST/SGOT</td> <td>49 Units/L</td> <td>10-37</td> </tr> <tr> <td>ALT/SGPT</td> <td>22 Units/L</td> < td>< 66</td> </tr> <tr> <td>CARBON DIOXIDE</td> <td>27 mmol/L</td> <td>21-32</td> </tr> <tr> <td>TOTAL PROTEIN</td> <td>7.4 gm/dL</td> <td>6.4-8.2</td> </tr> <tr> <td>ALBUMIN</td> <td>3.2 gm/dL</td> <td>3.4-5.0</td> </tr> <tr> <td>BILI TOTAL</td> <td>0.4 mg/dL</td> <td>0.0-1.0</td> </tr> <tr> <td>ALKALINE PHOSPHATASE TOTAL</td> <td>48 IU/L</td> <td>45-117</td> </tr> <tr> < colspan="10">CBC - 03/31 04:22</th> </tr> <tr> <td>MEAN CELL HGB</td> <td>26.5 pg</td> <td>27.0-33.0</td> </tr> <tr> <td>MEAN CELL HGB CONCENTRATION</td> <td>31.5 g/dL</td> <td> 32.0-37.0</td> </tr> <tr> <td>MEAN CELL VOLUME</td> <td>84.1 fl</td> <td>80.0-100.0</td> </tr> <tr> <td>RED BLOOD CELL</td> <td>3.59 m/cumm</td> <td>4.00- 6.00</td> </tr> <tr> <td>RED CELL DISTRIBUTION WIDTH</td > <td>15.4 %</td> <td>11.0-15.6</td> </tr> < tr> <td>WHITE BLOOD CELL</td> <td>9.7 k/cumm</td> <td >5.0-10.0</td> </tr> <tr> <td>HEMOGLOBIN</td> < td>9.5 gm/dL</td> <td>12.0-16.0</td> </tr> <tr> <td>HEMATOCRIT</td> <td>30.2 %</td> <td>37.0-47.0</td> </tr> <tr> <td>PLATELET COUNT</td> <td>311 k/cumm< /td> <td>150-400</td> </tr> <tr> < colspan="10 "> TEST, SERUM - 03/31/15 05:31</th> </tr> <tr> <td> TEST, SERUM</td> <td>NEGATIVE </td> <td>NEGATIVE </td> </tr> <tr> < colspan="10">GLUCOSE (POC) - 06:23</th> </tr> <tr> <td>GLUCOSE (POC)</td> <td>84 mg/dL</td> <td>70-99</td> </tr> <tr> < colspan="10">PTT HEPARIN PROTOCOLS - 03/31/15 09:01</th> </tr> <tr > <td>PARTIAL THROMBOPLASTIN TIME</td> <td>105 sec</td> <td>23-39</td> </tr> <tr> <th colspan="10">GLUCOSE ( POC) - 03/31/15 10:30</th> </tr> <tr> <td>GLUCOSE (POC)</ td> <td>65 mg/dL</td> <td>70-99</td> </tr> <tr> <th colspan="10">GLUCOSE (POC) - 03/31/15 12:16</th> </tr> <tr> <td>GLUCOSE (POC)</td> <td>96 mg/dL</td> <td >70-99</td> </tr> <tr> <th colspan="10">GLUCOSE (POC) - 03/31/15 13:33</th> </tr> <tr> <td>GLUCOSE (POC)</td> <td>100 mg/dL</td> <td>70-99</td> </tr> <tr> <th colspan="10">GLUCOSE (POC) - 03/31/15 18:24</th> </tr> < tr> <td>GLUCOSE (POC)</td> <td>86 mg/dL</td> <td>70- 99</td> </tr> <tr> <th colspan="10">GLUCOSE (POC) - 03/31 22:36</th> </tr> <tr> <td>GLUCOSE (POC)</td> <td>105 mg/dL</td> <td>70-99</td> </tr> <tr> < th colspan="10">PTT HEPARIN PROTOCOLS - 04/01/15 02:36</th> </tr> <tr> <td>PARTIAL THROMBOPLASTIN TIME</td> <td>74 sec</td> <td>23-39</td> </tr> <tr> <th colspan="10">GLUCOSE (POC) - 04/01/15 05:25</th> </tr> <tr> <td>GLUCOSE (POC)< /td> <td>101 mg/dL</td> <td>70-99</td> </tr> <tr > <th colspan="10">PTT HEPARIN PROTOCOLS - 04/01/15 08:59</th> < /tr> <tr> <td>PARTIAL THROMBOPLASTIN TIME</td> <td>80 sec</td> <td>23-39</td> </tr> <tr> <th colspan= "10">GLUCOSE (POC) - 04/01/15 10:54</th> </tr> <tr> <td> GLUCOSE (POC)</td> <td>81 mg/dL</td> <td>70-99</td> </ tr> <tr> <th colspan="10">GLUCOSE (POC) - 04/01/15 14:59</th> </tr> <tr> <td>GLUCOSE (POC)</td> <td>92 mg/dL</ td> <td>70-99</td> </tr> <tr> <th colspan="10"> GLUCOSE (POC) - 04/01/15 20:56</th> </tr> <tr> <td> GLUCOSE (POC)</td> <td>119 mg/dL</td> <td>70-99</td> </ tr> <tr> <th colspan="10">GLUCOSE (POC) - 04/02/15 05:33</th> </tr> <tr> <td>GLUCOSE (POC)</td> <td>95 mg/dL</ td> <td>70-99</td> </tr> <tr> <th colspan="10"> CBC - 04/02/15 06:39</th> </tr> <tr> <td>MEAN CELL HGB</ td> <td>26.8 pg</td> <td>27.0-33.0</td> </tr> < tr> <td>MEAN CELL HGB CONCENTRATION</td> <td>32.3 g/dL</td> <td>32.0-37.0</td> </tr> <tr> <td>MEAN CELL VOLUME</td> <td>83.0 fl</td> <td>80.0-100.0</td> </tr> <tr> <td>RED BLOOD CELL</td> <td>2.76 m/cumm</td> <td>4.00-6.00</td> </tr> <tr> <td>RED CELL DISTRIBUTION WIDTH</td> <td>15.2 %</td> <td>11.0-15.6</td > </tr> <tr> <td>WHITE BLOOD CELL</td> <td>9.6 k /cumm</td> <td>5.0-10.0</td> </tr> <tr> <td> HEMOGLOBIN</td> <td>7.4 gm/dL</td> <td>12.0-16.0</td> < /tr> <tr> <td>HEMATOCRIT</td> <td>22.9 %</td> <td>37.0-47.0</td> </tr> <tr> <td>PLATELET COUNT</td > <td>257 k/cumm</td> <td>150-400</td> </tr> <tr > < colspan="10">PTT HEPARIN PROTOCOLS - 04/02/15 06:39</th> < /tr> <tr> <td>PARTIAL THROMBOPLASTIN TIME</td> <td>74 sec</td> <td>23-39</td> </tr> <tr> < colspan= "10">GLUCOSE (POC) - 04/02/15 11:20</th> </tr> <tr> <td> GLUCOSE (POC)</td> <td>120 mg/dL</td> <td>70-99</td> </ tr> <tr> < colspan="10">PTT HEPARIN PROTOCOLS - 04/02/15 12:07 </th> </tr> <tr> <td>PARTIAL THROMBOPLASTIN TIME</td> <td>135 sec</td> <td>23-39</td> </tr> <tr> <th colspan="10">GLUCOSE (POC) - 04/02/15 15:16</th> </tr> <tr > <td>GLUCOSE (POC)</td> <td>90 mg/dL</td> <td>70-99< /td> </tr> <tr> < colspan="10">PTT HEPARIN PROTOCOLS - 04/02/15 19:21</th> </tr> <tr> <td>PARTIAL THROMBOPLASTIN TIME</td> <td>45 sec</td> <td>23-39</td> </tr> <tr> <th colspan="10">GLUCOSE (POC) - 04/02/15 20:47</th > </tr> <tr> <td>GLUCOSE (POC)</td> <td>100 mg/ dL</td> <td>70-99</td> </tr> <tr> <th colspan= "10">PTT HEPARIN PROTOCOLS - 04/03/15 03:24</th> </tr> <tr> <td>PARTIAL THROMBOPLASTIN TIME</td> <td>95 sec</td> <td> 23-39</td> </tr> <tr> <th colspan="10">GLUCOSE (POC) - 05:42</th> </tr> <tr> <td>GLUCOSE (POC)</td> <td>97 mg/dL</td> <td>70-99</td> </tr> <tr> <th colspan="10">GLUCOSE (POC) - 04/03/15 08:43</th> </tr> <tr> <td>GLUCOSE (POC)</td> <td>79 mg/dL</td> <td>70-99</ td> </tr> <tr> <th colspan="10">GLUCOSE (POC) - 04/03/15 11:31</th> </tr> <tr> <td>GLUCOSE (POC)</td> <td >79 mg/dL</td> <td>70-99</td> </tr> <tr> <th colspan="10">GLUCOSE (POC) - 04/03/15 16:40</th> </tr> <tr> <td>GLUCOSE (POC)</td> <td>111 mg/dL</td> <td>70-99</td> </tr> <tr> <th colspan="10">GLUCOSE (POC) - 04/03/15 21: 22</th> </tr> <tr> <td>GLUCOSE (POC)</td> <td> 128 mg/dL</td> <td>70-99</td> </tr> <tr> <th colspan="10">PTT HEPARIN PROTOCOLS - 04/03/15 21:23</th> </tr> <tr > <td>PARTIAL THROMBOPLASTIN TIME</td> <td>78 sec</td> <td>23-39</td> </tr> <tr> <th colspan="10">CBC - 04/04 05:11</th> </tr> <tr> <td>MEAN CELL HGB</td> <td>26.0 pg</td> <td>27.0-33.0</td> </tr> <tr> <td>MEAN CELL HGB CONCENTRATION</td> <td>31.3 g/dL</td> <td> 32.0-37.0</td> </tr> <tr> <td>MEAN CELL VOLUME</td> <td>83.2 fl</td> <td>80.0-100.0</td> </tr> <tr> <td>RED BLOOD CELL</td> <td>2.50 m/cumm</td> <td>4.00- 6.00</td> </tr> <tr> <td>RED CELL DISTRIBUTION WIDTH</td > <td>15.0 %</td> <td>11.0-15.6</td> </tr> < tr> <td>WHITE BLOOD CELL</td> <td>7.3 k/cumm</td> <td >5.0-10.0</td> </tr> <tr> <td>HEMOGLOBIN</td> < td>6.5 gm/dL</td> <td>12.0-16.0</td> </tr> <tr> <td>HEMATOCRIT</td> <td>20.8 %</td> <td>37.0-47.0</td> </tr> <tr> <td>PLATELET COUNT</td> <td>287 k/cumm< /td> <td>150-400</td> </tr> <tr> <th colspan="10 ">PTT HEPARIN PROTOCOLS - 04/04/15 05:11</th> </tr> <tr> <td>PARTIAL THROMBOPLASTIN TIME</td> <td>83 sec</td> <td>23-39 </td> </tr> <tr> <th colspan="10">METABOLIC PANEL, BASIC - 04/04/15 05:11</th> </tr> <tr> <td>POTASSIUM</td> <td>3.5 mmol/L</td> <td>3.5-5.3</td> </tr> <tr> <td>EST GFR (MDRD)</td> <td>> 60 mL/min</td> <td>&gt ; 59</td> </tr> <tr> <td>ANION GAP</td> <td>8 mmol/L</td> <td>5-15</td> </tr> <tr> <td>EST CrCl (CG)</td> <td>> 60 mL/min</td> <td>> 59</td> </tr> <tr> <td>GLUCOSE</td> <td>101 mg/dL</td> <td>70-99</td> </tr> <tr> <td>CALCIUM</td> < td>7.8 mg/dL</td> <td>8.5-10.1</td> </tr> <tr> < td>BLOOD UREA NITROGEN</td> <td>4 mg/dL</td> <td>7-20</td> </tr> <tr> <td>CREATININE</td> <td>0.4 mg/dL</td> <td>0.6-1.0</td> </tr> <tr> <td>SODIUM</td> <td>137 mmol/L</td> <td>135-148</td> </tr> <tr> <td>CHLORIDE</td> <td>104 mmol/L</td> <td>98-110</td> </tr> <tr> <td>CARBON DIOXIDE</td> <td>25 mmol/ L</td> <td>21-32</td> </tr> <tr> <th colspan="10 ">GLUCOSE (POC) - 04/04/15 05:19</th> </tr> <tr> <td> GLUCOSE (POC)</td> <td>92 mg/dL</td> <td>70-99</td> </ tr> <tr> < colspan="10">GLUCOSE (POC) - 04/04/15 11:00</th> </tr> <tr> <td>GLUCOSE (POC)</td> <td>120 mg/dL</ td> <td>70-99</td> </tr> <tr> < colspan="10"> VANCOMYCIN TROUGH - 04/04/15 12:55</th> </tr> <tr> <td> VANCOMYCIN TROUGH</td> <td>9.3 mcg/mL</td> <td>5.0-20.0</td> </tr> <tr> < colspan="10">GLUCOSE (POC) - 04/04/15 17: 31</th> </tr> <tr> <td>GLUCOSE (POC)</td> <td> 93 mg/dL</td> <td>70-99</td> </tr> <tr> < colspan="10">GLUCOSE (POC) - 04/04/15 20:41</th> </tr> <tr> <td>GLUCOSE (POC)</td> <td>120 mg/dL</td> <td>70-99</td> </tr> <tr> < colspan="10">CBC - 04/05/15 05:00</th> </tr> <tr> <td>MEAN CELL HGB</td> <td>26.8 pg</td > <td>27.0-33.0</td> </tr> <tr> <td>MEAN CELL HGB CONCENTRATION</td> <td>32.3 g/dL</td> <td>32.0-37.0</td> </tr> <tr> <td>MEAN CELL VOLUME</td> <td>83.1 fl </td> <td>80.0-100.0</td> </tr> <tr> <td>RED BLOOD CELL</td> <td>2.72 m/cumm</td> <td>4.00-6.00</td> </tr> <tr> <td>RED CELL DISTRIBUTION WIDTH</td> <td> 15.1 %</td> <td>11.0-15.6</td> </tr> <tr> < td>WHITE BLOOD CELL</td> <td>7.1 k/cumm</td> <td>5.0-10.0</td > </tr> <tr> <td>HEMOGLOBIN</td> <td>7.3 gm/dL</ td> <td>12.0-16.0</td> </tr> <tr> <td>HEMATOCRIT </td> <td>22.6 %</td> <td>37.0-47.0</td> </tr> <tr> <td>PLATELET COUNT</td> <td>320 k/cumm</td> <td>150-400</td> </tr> <tr> <th colspan="10">PTT HEPARIN PROTOCOLS - 04/05/15 05:00</th> </tr> <tr> <td>PARTIAL THROMBOPLASTIN TIME</td> <td>102 sec</td> <td>23-39</td> </tr> <tr> <th colspan="10">GLUCOSE (POC) - 04/05/15 06:11</ th> </tr> <tr> <td>GLUCOSE (POC)</td> <td>106 mg /dL</td> <td>70-99</td> </tr> <tr> <th colspan= "10">GLUCOSE (POC) - 04/05/15 10:23</th> </tr> <tr> <td> GLUCOSE (POC)</td> <td>103 mg/dL</td> <td>70-99</td> </ tr> <tr> <th colspan="10">PTT HEPARIN PROTOCOLS - 04/05/15 11:45 </th> </tr> <tr> <td>PARTIAL THROMBOPLASTIN TIME</td> <td>61 sec</td> <td>23-39</td> </tr> <tr> <th colspan="10">GLUCOSE (POC) - 04/05/15 14:56</th> </tr> <tr> <td>GLUCOSE (POC)</td> <td>81 mg/dL</td> <td>70-99</ td> </tr> <tr> <th colspan="10">PTT HEPARIN PROTOCOLS - 04/05/15 17:11</th> </tr> <tr> <td>PARTIAL THROMBOPLASTIN TIME</td> <td>67 sec</td> <td>23-39</td> </tr> <tr> <th colspan="10">GLUCOSE (POC) - 04/05/15 21:29</th > </tr> <tr> <td>GLUCOSE (POC)</td> <td>100 mg/ dL</td> <td>70-99</td> </tr> <tr> <th colspan= "10">PTT HEPARIN PROTOCOLS - 04/06/15 06:35</th> </tr> <tr> <td>PARTIAL THROMBOPLASTIN TIME</td> <td>40 sec</td> <td> 23-39</td> </tr> <tr> <th colspan="10">GLUCOSE (POC) - 07:54</th> </tr> <tr> <td>GLUCOSE (POC)</td> <td>115 mg/dL</td> <td>70-99</td> </tr> <tr> <th colspan="10">PTT HEPARIN PROTOCOLS - 04/06/15 16:04</th> </tr> <tr> <td>PARTIAL THROMBOPLASTIN TIME</td> <td>46 sec</td > <td>23-39</td> </tr> <tr> <th colspan="10"> GLUCOSE (POC) - 04/06/15 16:28</th> </tr> <tr> <td> GLUCOSE (POC)</td> <td>99 mg/dL</td> <td>70-99</td> </ tr> <tr> <th colspan="10">GLUCOSE (POC) - 04/06/15 20:48</th> </tr> <tr> <td>GLUCOSE (POC)</td> <td>96 mg/dL</ td> <td>70-99</td> </tr> <tr> <th colspan="10"> PTT HEPARIN PROTOCOLS - 04/07/15 00:41</th> </tr> <tr> < td>PARTIAL THROMBOPLASTIN TIME</td> <td>42 sec</td> <td>23-39< /td> </tr> <tr> <th colspan="10">CREATININE - 04/07/15 05 :29</th> </tr> <tr> <td>EST GFR (MDRD)</td> <td> > 60 mL/min</td> <td>> 59</td> </tr> <tr> <td>CREATININE</td> <td>0.5 mg/dL</td> <td>0.6-1.0</td> </tr> <tr> <th colspan="10">GLUCOSE (POC) - 04/07/15 06:09</th > </tr> <tr> <td>GLUCOSE (POC)</td> <td>98 mg/dL </td> <td>70-99</td> </tr> <tr> <th colspan="10 ">PTT HEPARIN PROTOCOLS - 04/07/15 08:00</th> </tr> <tr> <td>PARTIAL THROMBOPLASTIN TIME</td> <td>142 sec</td> <td>23- 39</td> </tr> <tr> <th colspan="10">GLUCOSE (POC) - 04/07 09:58</th> </tr> <tr> <td>GLUCOSE (POC)</td> <td>93 mg/dL</td> <td>70-99</td> </tr> <tr> < th colspan="10">METABOLIC PANEL, BASIC - 04/07/15 10:24</th> </tr> <tr> <td>POTASSIUM</td> <td>3.9 mmol/L</td> <td>3.5 -5.3</td> </tr> <tr> <td>EST GFR (MDRD)</td> <td >> 60 mL/min</td> <td>> 59</td> </tr> <tr> <td>ANION GAP</td> <td>6 mmol/L</td> <td>5-15</td> </ tr> <tr> <td>EST CrCl (CG)</td> <td>> 60 mL/min</td > <td>> 59</td> </tr> <tr> <td>GLUCOSE</td> <td>90 mg/dL</td> <td>70-99</td> </tr> <tr> <td>CALCIUM</td> <td>8.3 mg/dL</td> <td>8.5-10.1</td> </tr> <tr> <td>BLOOD UREA NITROGEN</td> <td>3 mg/ dL</td> <td>7-20</td> </tr> <tr> <td>CREATININE< /td> <td>0.5 mg/dL</td> <td>0.6-1.0</td> </tr> < tr> <td>SODIUM</td> <td>137 mmol/L</td> <td>135-148</ td> </tr> <tr> <td>CHLORIDE</td> <td>103 mmol/L< /td> <td>98-110</td> </tr> <tr> <td>CARBON DIOXIDE</td> <td>28 mmol/L</td> <td>21-32</td> </tr> <tr> < colspan="10">CBC - 04/07/15 10:24</th> </tr> <tr> <td>COMMENT</td> <td>REVIEWED </td> <td /> </tr> <tr> <td>MEAN CELL HGB</td> <td>26.4 pg</ td> <td>27.0-33.0</td> </tr> <tr> <td>MEAN CELL HGB CONCENTRATION</td> <td>31.4 g/dL</td> <td>32.0-37.0</td> </tr> <tr> <td>MEAN CELL VOLUME</td> <td>84.2 fl </td> <td>80.0-100.0</td> </tr> <tr> <td>RED BLOOD CELL</td> <td>3.03 m/cumm</td> <td>4.00-6.00</td> </tr> <tr> <td>RED CELL DISTRIBUTION WIDTH</td> <td> 15.5 %</td> <td>11.0-15.6</td> </tr> <tr> < td>WHITE BLOOD CELL</td> <td>8.8 k/cumm</td> <td>5.0-10.0</td > </tr> <tr> <td>HEMOGLOBIN</td> <td>8.0 gm/dL</ td> <td>12.0-16.0</td> </tr> <tr> <td>HEMATOCRIT </td> <td>25.5 %</td> <td>37.0-47.0</td> </tr> <tr> <td>PLATELET COUNT</td> <td>158 k/cumm</td> <td>150-400</td> </tr> <tr> <th colspan="10">GLUCOSE (POC ) - 04/07/15 14:50</th> </tr> <tr> <td>GLUCOSE (POC)</td > <td>101 mg/dL</td> <td>70-99</td> </tr> <tr> <th colspan="10">PTT HEPARIN PROTOCOLS - 04/07/15 16:31</th> </ tr> <tr> <td>PARTIAL THROMBOPLASTIN TIME</td> <td>92 sec</td> <td>23-39</td> </tr> <tr> <th colspan= "10">GLUCOSE (POC) - 04/07/15 20:52</th> </tr> <tr> <td> GLUCOSE (POC)</td> <td>102 mg/dL</td> <td>70-99</td> </ tr> <tr> <th colspan="10">PTT HEPARIN PROTOCOLS - 04/08/15 00:36 </th> </tr> <tr> <td>PARTIAL THROMBOPLASTIN TIME</td> <td>98 sec</td> <td>23-39</td> </tr> <tr> <th colspan="10">GLUCOSE (POC) - 04/08/15 05:23</th> </tr> <tr> <td>GLUCOSE (POC)</td> <td>97 mg/dL</td> <td>70-99</ td> </tr> <tr> <th colspan="10">GLUCOSE (POC) - 04/08/15 11:32</th> </tr> <tr> <td>GLUCOSE (POC)</td> <td >88 mg/dL</td> <td>70-99</td> </tr> <tr> <th colspan="10">GLUCOSE (POC) - 04/08/15 13:50</th> </tr> <tr> <td>GLUCOSE (POC)</td> <td>97 mg/dL</td> <td>70-99</td> </tr> <tr> < colspan="10">PARTIAL THROMBOPLASTIN TIME - 04/08/15 16:49</th> </tr> <tr> <td>PARTIAL THROMBOPLASTIN TIME</td> <td>40 sec</td> <td>23-39</td> </tr> <tr> < colspan="10">PROTHROMBIN TIME WITH INR - 16:49</th> </tr> <tr> <td>INTERNATIONAL NORMAL RATIO</ td> <td>1.2 </td> <td>0.9-1.1</td> </tr> <tr> <td>PROTHROMBIN TIME</td> <td>13.3 sec</td> <td>9.3- 12.2</td> </tr> <tr> < colspan="10">CBC - 04/08/15 16: 49</th> </tr> <tr> <td>MEAN CELL HGB</td> <td> 26.5 pg</td> <td>27.0-33.0</td> </tr> <tr> <td> MEAN CELL HGB CONCENTRATION</td> <td>31.7 g/dL</td> <td>32.0- 37.0</td> </tr> <tr> <td>MEAN CELL VOLUME</td> < td>83.5 fl</td> <td>80.0-100.0</td> </tr> <tr> < td>RED BLOOD CELL</td> <td>3.10 m/cumm</td> <td>4.00-6.00</td > </tr> <tr> <td>RED CELL DISTRIBUTION WIDTH</td> <td>15.5 %</td> <td>11.0-15.6</td> </tr> <tr> <td>WHITE BLOOD CELL</td> <td>11.3 k/cumm</td> <td>5.0- 10.0</td> </tr> <tr> <td>HEMOGLOBIN</td> <td> 8.2 gm/dL</td> <td>12.0-16.0</td> </tr> <tr> <td >HEMATOCRIT</td> <td>25.9 %</td> <td>37.0-47.0</td> </tr> <tr> <td>PLATELET COUNT</td> <td>187 k/cumm</td > <td>150-400</td> </tr> <tr> <th colspan="10"> GLUCOSE (POC) - 04/08/15 21:10</th> </tr> <tr> <td> GLUCOSE (POC)</td> <td>106 mg/dL</td> <td>70-99</td> </ tr> <tr> < colspan="10">PTT HEPARIN PROTOCOLS - 04/09/15 00:45 </th> </tr> <tr> <td>PARTIAL THROMBOPLASTIN TIME</td> <td>105 sec</td> <td>23-39</td> </tr> <tr> <th colspan="10">METABOLIC PANEL, BASIC - 04/09/15 05:30</th> </tr> <tr> <td>POTASSIUM</td> <td>3.7 mmol/L</td> <td >3.5-5.3</td> </tr> <tr> <td>EST GFR (MDRD)</td> <td>> 60 mL/min</td> <td>> 59</td> </tr> <tr> <td>ANION GAP</td> <td>10 mmol/L</td> <td>5-15</td> </tr> <tr> <td>EST CrCl (CG)</td> <td>> 60 mL/ min</td> <td>> 59</td> </tr> <tr> <td>GLUCOSE </td> <td>103 mg/dL</td> <td>70-99</td> </tr> < tr> <td>CALCIUM</td> <td>8.4 mg/dL</td> <td>8.5-10.1< /td> </tr> <tr> <td>BLOOD UREA NITROGEN</td> <td >4 mg/dL</td> <td>7-20</td> </tr> <tr> <td> CREATININE</td> <td>0.4 mg/dL</td> <td>0.6-1.0</td> </ tr> <tr> <td>SODIUM</td> <td>137 mmol/L</td> < td>135-148</td> </tr> <tr> <td>CHLORIDE</td> <td >102 mmol/L</td> <td>98-110</td> </tr> <tr> <td> CARBON DIOXIDE</td> <td>25 mmol/L</td> <td>21-32</td> < /tr> <tr> < colspan="10">CBC - 04/09/15 05:30</> </tr > <tr> <td>COMMENT</td> <td>REVIEWED </td> < td /> </tr> <tr> <td>MEAN CELL HGB</td> <td> 26.3 pg</td> <td>27.0-33.0</td> </tr> <tr> <td> MEAN CELL HGB CONCENTRATION</td> <td>31.6 g/dL</td> <td>32.0- 37.0</td> </tr> <tr> <td>MEAN CELL VOLUME</td> < td>83.2 fl</td> <td>80.0-100.0</td> </tr> <tr> < td>RED BLOOD CELL</td> <td>3.04 m/cumm</td> <td>4.00-6.00</td > </tr> <tr> <td>RED CELL DISTRIBUTION WIDTH</td> <td>15.5 %</td> <td>11.0-15.6</td> </tr> <tr> <td>WHITE BLOOD CELL</td> <td>10.3 k/cumm</td> <td>5.0- 10.0</td> </tr> <tr> <td>HEMOGLOBIN</td> <td> 8.0 gm/dL</td> <td>12.0-16.0</td> </tr> <tr> <td >HEMATOCRIT</td> <td>25.3 %</td> <td>37.0-47.0</td> </tr> <tr> <td>PLATELET COUNT</td> <td>123 k/cumm</td > <td>150-400</td> </tr> <tr> <th colspan="10"> GLUCOSE (POC) - 04/09/15 06:08</th> </tr> <tr> <td> GLUCOSE (POC)</td> <td>97 mg/dL</td> <td>70-99</td> </ tr> <tr> <th colspan="10">PARTIAL THROMBOPLASTIN TIME - 09:15</th> </tr> <tr> <td>PARTIAL THROMBOPLASTIN TIME< /td> <td>66 sec</td> <td>23-39</td> </tr> <tr> <th colspan="10">GLUCOSE (POC) - 04/09/15 10:09</th> </tr> <tr> <td>GLUCOSE (POC)</td> <td>111 mg/dL</td> <td >70-99</td> </tr> <tr> <th colspan="10">VANCOMYCIN TROUGH - 04/09/15 14:15</th> </tr> <tr> <td>VANCOMYCIN TROUGH</td> <td>8.1 mcg/mL</td> <td>5.0-20.0</td> </tr > <tr> <th colspan="10">GLUCOSE (POC) - 04/09/15 14:21</th> </tr> <tr> <td>GLUCOSE (POC)</td> <td>115 mg/dL</td > <td>70-99</td> </tr> <tr> <th colspan="10"> PTT HEPARIN PROTOCOLS - 04/09/15 18:00</th> </tr> <tr> < td>PARTIAL THROMBOPLASTIN TIME</td> <td>61 sec</td> <td>23-39< /td> </tr> <tr> <th colspan="10">GLUCOSE (POC) - 21:32</th> </tr> <tr> <td>GLUCOSE (POC)</td> <td>106 mg/dL</td> <td>70-99</td> </tr> <tr> < th colspan="10">GLUCOSE (POC) - 04/10/15 04:56</th> </tr> <tr> <td>GLUCOSE (POC)</td> <td>112 mg/dL</td> <td>70-99</td > </tr> <tr> <th colspan="10">GLUCOSE (POC) - 04/10/15 10 :29</th> </tr> <tr> <td>GLUCOSE (POC)</td> <td> 118 mg/dL</td> <td>70-99</td> </tr> <tr> <th colspan="10">PTT HEPARIN PROTOCOLS - 04/10/15 11:25</th> </tr> <tr > <td>PARTIAL THROMBOPLASTIN TIME</td> <td>102 sec</td> <td>23-39</td> </tr> <tr> <th colspan="10">GLUCOSE ( POC) - 04/10/15 15:15</th> </tr> <tr> <td>GLUCOSE (POC)</ td> <td>98 mg/dL</td> <td>70-99</td> </tr> <tr> <th colspan="10">PTT HEPARIN PROTOCOLS - 04/10/15 18:45</th> </ tr> <tr> <td>PARTIAL THROMBOPLASTIN TIME</td> <td>202 sec</td> <td>23-39</td> </tr> <tr> <th colspan= "10">GLUCOSE (POC) - 04/10/15 21:01</th> </tr> <tr> <td> GLUCOSE (POC)</td> <td>106 mg/dL</td> <td>70-99</td> </ tr> <tr> <th colspan="10">GLUCOSE (POC) - 04/11/15 06:12</th> </tr> <tr> <td>GLUCOSE (POC)</td> <td>102 mg/dL</ td> <td>70-99</td> </tr> <tr> <th colspan="10"> PTT HEPARIN PROTOCOLS - 04/11/15 06:39</th> </tr> <tr> < td>PARTIAL THROMBOPLASTIN TIME</td> <td>79 sec</td> <td>23-39< /td> </tr> <tr> <th colspan="10">GLUCOSE (POC) - 09:57</th> </tr> <tr> <td>GLUCOSE (POC)</td> <td>99 mg/dL</td> <td>70-99</td> </tr> <tr> <th colspan="10">PTT HEPARIN PROTOCOLS - 04/11/15 14:08</th> </tr> <tr > <td>PARTIAL THROMBOPLASTIN TIME</td> <td>79 sec</td> <td>23-39</td> </tr> <tr> <th colspan="10">GLUCOSE ( POC) - 04/11/15 15:03</th> </tr> <tr> <td>GLUCOSE (POC)</ td> <td>104 mg/dL</td> <td>70-99</td> </tr> <tr > <th colspan="10">GLUCOSE (POC) - 04/11/15 21:43</th> </tr> <tr> <td>GLUCOSE (POC)</td> <td>98 mg/dL</td> < td>70-99</td> </tr> <tr> <th colspan="10">PTT HEPARIN PROTOCOLS - 04/12/15 04:51</th> </tr> <tr> <td>PARTIAL THROMBOPLASTIN TIME</td> <td>62 sec</td> <td>23-39</td> </tr> <tr> <th colspan="10">CBC - 04/12/15 04:51</th> < /tr> <tr> <td>COMMENT</td> <td>CC </td> <td / > </tr> <tr> <td>MEAN CELL HGB</td> <td>25.6 pg< /td> <td>27.0-33.0</td> </tr> <tr> <td>MEAN CELL HGB CONCENTRATION</td> <td>30.6 g/dL</td> <td>32.0-37.0</ td> </tr> <tr> <td>MEAN CELL VOLUME</td> <td> 83.7 fl</td> <td>80.0-100.0</td> </tr> <tr> <td> RED BLOOD CELL</td> <td>2.89 m/cumm</td> <td>4.00-6.00</td> </tr> <tr> <td>RED CELL DISTRIBUTION WIDTH</td> < td>15.4 %</td> <td>11.0-15.6</td> </tr> <tr> <td>WHITE BLOOD CELL</td> <td>6.3 k/cumm</td> <td>5.0-10.0</ td> </tr> <tr> <td>HEMOGLOBIN</td> <td>7.4 gm/dL </td> <td>12.0-16.0</td> </tr> <tr> <td> HEMATOCRIT</td> <td>24.2 %</td> <td>37.0-47.0</td> </tr> <tr> <th colspan="10">GLUCOSE (POC) - 04/12/15 06:05</th> </tr> <tr> <td>GLUCOSE (POC)</td> <td>95 mg/dL< /td> <td>70-99</td> </tr> <tr> <th colspan="10"> VANCOMYCIN TROUGH - 04/12/15 09:13</th> </tr> <tr> <td> VANCOMYCIN TROUGH</td> <td>16.0 mcg/mL</td> <td>5.0-20.0</td> </tr> <tr> <th colspan="10">GLUCOSE (POC) - 04/12/15 10: 28</th> </tr> <tr> <td>GLUCOSE (POC)</td> <td> 109 mg/dL</td> <td>70-99</td> </tr> <tr> <th colspan="10">GLUCOSE (POC) - 04/12/15 14:38</th> </tr> <tr> <td>GLUCOSE (POC)</td> <td>114 mg/dL</td> <td>70-99</td> </tr> <tr> <th colspan="10">GLUCOSE (POC) - 04/12/15 20: 59</th> </tr> <tr> <td>GLUCOSE (POC)</td> <td> 109 mg/dL</td> <td>70-99</td> </tr> <tr> <th colspan="10">PTT HEPARIN PROTOCOLS - 04/13/15 05:09</th> </tr> <tr > <td>PARTIAL THROMBOPLASTIN TIME</td> <td>81 sec</td> <td>23-39</td> </tr> <tr> <th colspan="10">GLUCOSE ( POC) - 04/13/15 05:20</th> </tr> <tr> <td>GLUCOSE (POC)</ td> <td>106 mg/dL</td> <td>70-99</td> </tr> <tr > <th colspan="10">GLUCOSE (POC) - 04/13/15 10:09</th> </tr> <tr> <td>GLUCOSE (POC)</td> <td>92 mg/dL</td> < td>70-99</td> </tr> <tr> <th colspan="10">GLUCOSE (POC) - 04/13/15 14:23</th> </tr> <tr> <td>GLUCOSE (POC)</td> <td>122 mg/dL</td> <td>70-99</td> </tr> <tr> <th colspan="10">GLUCOSE (POC) - 04/13/15 20:59</th> </tr> <tr> <td>GLUCOSE (POC)</td> <td>102 mg/dL</td> <td>70 -99</td> </tr> <tr> <th colspan="10">BC REFLEX LACTIC ACID - 04/13/15 21:02</th> </tr> <tr> <td>LACTIC ACID</td > <td>0.5 mmol/L</td> <td>0.5-2.0</td> </tr> <tr > <th colspan="10">BLOOD CULTURE - 04/13/15 21:12</th> </tr> <tr> <td>Microbiology</td> <td> </td> <td /> </tr> <tr> <th colspan="10">BLOOD CULTURE - 04/13/15 21:22< /th> </tr> <tr> <td>Microbiology</td> <td> </td > <td /> </tr> <tr> <th colspan="10">GLUCOSE ( POC) - 04/14/15 05:21</th> </tr> <tr> <td>GLUCOSE (POC)</ td> <td>99 mg/dL</td> <td>70-99</td> </tr> <tr> <th colspan="10">PTT HEPARIN PROTOCOLS - 04/14/15 05:39</th> </ tr> <tr> <td>PARTIAL THROMBOPLASTIN TIME</td> <td>89 sec</td> <td>23-39</td> </tr> <tr> <th colspan= "10">METABOLIC PANEL, BASIC - 04/14/15 05:39</th> </tr> <tr> <td>POTASSIUM</td> <td>3.7 mmol/L</td> <td>3.5-5.3</td> </tr> <tr> <td>EST GFR (MDRD)</td> <td>> 60 mL/min</td> <td>> 59</td> </tr> <tr> <td> ANION GAP</td> <td>9 mmol/L</td> <td>5-15</td> </tr> <tr> <td>EST CrCl (CG)</td> <td>> 60 mL/min</td> <td>> 59</td> </tr> <tr> <td>GLUCOSE</td> <td>98 mg/dL</td> <td>70-99</td> </tr> <tr> <td>CALCIUM</td> <td>8.6 mg/dL</td> <td>8.5-10.1</td> < /tr> <tr> <td>BLOOD UREA NITROGEN</td> <td>6 mg/dL</td > <td>7-20</td> </tr> <tr> <td>CREATININE</td> <td>0.7 mg/dL</td> <td>0.6-1.0</td> </tr> <tr> <td>SODIUM</td> <td>135 mmol/L</td> <td>135-148</td> </tr> <tr> <td>CHLORIDE</td> <td>102 mmol/L</td > <td>98-110</td> </tr> <tr> <td>CARBON DIOXIDE< /td> <td>24 mmol/L</td> <td>21-32</td> </tr> <tr > < colspan="10">CBC - 04/14/15 05:39</th> </tr> <tr> <td>MEAN CELL HGB</td> <td>25.3 pg</td> <td>27.0-33.0 </td> </tr> <tr> <td>MEAN CELL HGB CONCENTRATION</td> <td>30.6 g/dL</td> <td>32.0-37.0</td> </tr> <tr> <td>MEAN CELL VOLUME</td> <td>82.8 fl</td> <td>80.0- 100.0</td> </tr> <tr> <td>RED BLOOD CELL</td> < td>2.96 m/cumm</td> <td>4.00-6.00</td> </tr> <tr> <td>RED CELL DISTRIBUTION WIDTH</td> <td>15.9 %</td> < td>11.0-15.6</td> </tr> <tr> <td>WHITE BLOOD CELL</td> <td>5.3 k/cumm</td> <td>5.0-10.0</td> </tr> <tr> <td>HEMOGLOBIN</td> <td>7.5 gm/dL</td> <td>12.0-16.0 </td> </tr> <tr> <td>HEMATOCRIT</td> <td>24.5 &# 37;</td> <td>37.0-47.0</td> </tr> <tr> <td> PLATELET COUNT</td> <td>Note k/cumm</td> <td>150-400</td> </tr> <tr> <th colspan="10">PLATELET COUNT - 04/14/15 09:15< /th> </tr> <tr> <td>PLATELET COUNT</td> <td>225 k/cumm</td> <td>150-400</td> </tr> <tr> <th colspan="10">GLUCOSE (POC) - 04/14/15 09:54</th> </tr> <tr> <td>GLUCOSE (POC)</td> <td>97 mg/dL</td> <td>70-99</td> </tr> <tr> <th colspan="10">GLUCOSE (POC) - 04/14/15 14:15 </th> </tr> <tr> <td>GLUCOSE (POC)</td> <td>101 mg/dL</td> <td>70-99</td> </tr> <tr> <th colspan ="10">GLUCOSE (POC) - 04/14/15 20:38</th> </tr> <tr> <td> GLUCOSE (POC)</td> <td>103 mg/dL</td> <td>70-99</td> </ tr> <tr> <th colspan="10">GLUCOSE (POC) - 04/15/15 04:31</th> </tr> <tr> <td>GLUCOSE (POC)</td> <td>111 mg/dL</ td> <td>70-99</td> </tr> <tr> <th colspan="10"> PTT HEPARIN PROTOCOLS - 04/15/15 09:34</th> </tr> <tr> < td>PARTIAL THROMBOPLASTIN TIME</td> <td>39 sec</td> <td>23-39< /td> </tr> <tr> <th colspan="10">CREATININE - 04/15/15 09 :34</th> </tr> <tr> <td>EST GFR (MDRD)</td> <td> > 60 mL/min</td> <td>> 59</td> </tr> <tr> <td>CREATININE</td> <td>0.5 mg/dL</td> <td>0.6-1.0</td> </tr> <tr> <th colspan="10">GLUCOSE (POC) - 04/15/15 10:19</th > </tr> <tr> <td>GLUCOSE (POC)</td> <td>108 mg/ dL</td> <td>70-99</td> </tr> <tr> <th colspan= "10">GLUCOSE (POC) - 04/15/15 14:45</th> </tr> <tr> <td> GLUCOSE (POC)</td> <td>79 mg/dL</td> <td>70-99</td> </ tr> <tr> <th colspan="10">GLUCOSE (POC) - 04/15/15 15:59</th> </tr> <tr> <td>GLUCOSE (POC)</td> <td>109 mg/dL</ td> <td>70-99</td> </tr> <tr> <th colspan="10"> GLUCOSE (POC) - 04/15/15 16:50</th> </tr> <tr> <td> GLUCOSE (POC)</td> <td>86 mg/dL</td> <td>70-99</td> </ tr> <tr> <th colspan="10">GLUCOSE (POC) - 04/15/15 18:15</th> </tr> <tr> <td>GLUCOSE (POC)</td> <td>89 mg/dL</ td> <td>70-99</td> </tr> <tr> <th colspan="10"> GLUCOSE (POC) - 04/15/15 21:19</th> </tr> <tr> <td> GLUCOSE (POC)</td> <td>104 mg/dL</td> <td>70-99</td> </ tr> <tr> <th colspan="10">GLUCOSE (POC) - 04/16/15 06:31</th> </tr> <tr> <td>GLUCOSE (POC)</td> <td>95 mg/dL</ td> <td>70-99</td> </tr> <tr> <th colspan="10"> METABOLIC PANEL, BASIC - 04/16/15 09:29</th> </tr> <tr> < td>POTASSIUM</td> <td>3.9 mmol/L</td> <td>3.5-5.3</td> </tr> <tr> <td>EST GFR (MDRD)</td> <td>> 60 mL/min</ td> <td>> 59</td> </tr> <tr> <td>ANION GAP</ td> <td>11 mmol/L</td> <td>5-15</td> </tr> <tr> <td>EST CrCl (CG)</td> <td>> 60 mL/min</td> <td>& gt; 59</td> </tr> <tr> <td>GLUCOSE</td> <td>96 mg/dL</td> <td>70-99</td> </tr> <tr> <td>CALCIUM </td> <td>8.2 mg/dL</td> <td>8.5-10.1</td> </tr> <tr> <td>BLOOD UREA NITROGEN</td> <td>5 mg/dL</td> <td>7-20</td> </tr> <tr> <td>CREATININE</td> <td >0.6 mg/dL</td> <td>0.6-1.0</td> </tr> <tr> <td> SODIUM</td> <td>139 mmol/L</td> <td>135-148</td> </tr> <tr> <td>CHLORIDE</td> <td>105 mmol/L</td> < td>98-110</td> </tr> <tr> <td>CARBON DIOXIDE</td> <td>23 mmol/L</td> <td>21-32</td> </tr> <tr> < colspan="10">CBC - 04/16/15 09:29</th> </tr> <tr> <td >COMMENT</td> <td>REVIEWED </td> <td /> </tr> < tr> <td>MEAN CELL HGB</td> <td>25.0 pg</td> <td>27.0- 33.0</td> </tr> <tr> <td>MEAN CELL HGB CONCENTRATION</td > <td>29.9 g/dL</td> <td>32.0-37.0</td> </tr> < tr> <td>MEAN CELL VOLUME</td> <td>83.6 fl</td> <td> 80.0-100.0</td> </tr> <tr> <td>RED BLOOD CELL</td> <td>3.04 m/cumm</td> <td>4.00-6.00</td> </tr> <tr> <td>RED CELL DISTRIBUTION WIDTH</td> <td>16.2 %</td> <td>11.0-15.6</td> </tr> <tr> <td>WHITE BLOOD CELL</ td> <td>4.7 k/cumm</td> <td>5.0-10.0</td> </tr> <tr> <td>HEMOGLOBIN</td> <td>7.6 gm/dL</td> <td>12.0- 16.0</td> </tr> <tr> <td>HEMATOCRIT</td> <td> 25.4 %</td> <td>37.0-47.0</td> </tr> <tr> < td>PLATELET COUNT</td> <td>Note k/cumm</td> <td>150-400</td> </tr> <tr> <th colspan="10">URINALYSIS, ROUTINE - 09:50</th> </tr> <tr> <td>UA LEUKOCYTE ESTERASE DIPSTICK</td> <td>NEGATIVE </td> <td>NEGATIVE</td> </tr > <tr> <td>UA NITRITE DIPSTICK</td> <td>NEGATIVE </td> <td>NEGATIVE</td> </tr> <tr> <td>UA PROTEIN DIPSTICK</td> <td>NEGATIVE </td> <td>NEGATIVE</td> </tr > <tr> <td>UA GLUCOSE DIPSTICK</td> <td>NEGATIVE </td> <td>NEGATIVE</td> </tr> <tr> <td>UA KETONE DIPSTICK</td> <td>2+ </td> <td>NEGATIVE</td> </tr> <tr> <td>UA UROBILINOGEN DIPSTICK</td> <td>2+ </td> <td>NORMAL</td> </tr> <tr> <td>UA BILIRUBIN DIPSTICK< /td> <td>NEGATIVE </td> <td>NEGATIVE</td> </tr> <tr> <td>UA BLOOD DIPSTICK</td> <td>NEGATIVE </td> < td>NEGATIVE</td> </tr> <tr> <td>UA SPECIFIC GRAVITY</td> <td>1.021 </td> <td>1.015-1.025</td> </tr> <tr > <td>UR PH</td> <td>6.0 </td> <td>5.0-7.0</td> </tr> <tr> <th colspan="10">GLUCOSE (POC) - 04/16/15 10:49</ th> </tr> <tr> <td>GLUCOSE (POC)</td> <td>90 mg/ dL</td> <td>70-99</td> </tr> <tr> <th colspan= "10">GLUCOSE (POC) - 04/16/15 14:59</th> </tr> <tr> <td> GLUCOSE (POC)</td> <td>109 mg/dL</td> <td>70-99</td> </ tr> <tr> <th colspan="10">GLUCOSE (POC) - 04/16/15 20:36</th> </tr> <tr> <td>GLUCOSE (POC)</td> <td>89 mg/dL</ td> <td>70-99</td> </tr> <tr> <th colspan="10"> GLUCOSE (POC) - 04/17/15 05:08</th> </tr> <tr> <td> GLUCOSE (POC)</td> <td>102 mg/dL</td> <td>70-99</td> </ tr> <tr> <th colspan="10">GLUCOSE (POC) - 04/17/15 06:30</th> </tr> <tr> <td>GLUCOSE (POC)</td> <td>100 mg/dL</ td> <td>70-99</td> </tr> <tr> <th colspan="10"> GLUCOSE (POC) - 04/17/15 09:15</th> </tr> <tr> <td> GLUCOSE (POC)</td> <td>104 mg/dL</td> <td>70-99</td> </ tr> <tr> <th colspan="10">GLUCOSE (POC) - 04/17/15 14:26</th> </tr> <tr> <td>GLUCOSE (POC)</td> <td>102 mg/dL</ td> <td>70-99</td> </tr> <tr> <th colspan="10"> GLUCOSE (POC) - 04/17/15 20:41</th> </tr> <tr> <td> GLUCOSE (POC)</td> <td>102 mg/dL</td> <td>70-99</td> </ tr> <tr> <th colspan="10">METABOLIC PANEL, BASIC - 04/18/15 04: 35</th> </tr> <tr> <td>POTASSIUM</td> <td>4.0 mmol/L</td> <td>3.5-5.3</td> </tr> <tr> <td>EST GFR (MDRD)</td> <td>> 60 mL/min</td> <td>> 59</td> </tr> <tr> <td>ANION GAP</td> <td>6 mmol/L</td> <td>5-15</td> </tr> <tr> <td>EST CrCl (CG)</td> <td>> 60 mL/min</td> <td>> 59</td> </tr> <tr > <td>GLUCOSE</td> <td>96 mg/dL</td> <td>70-99</td> </tr> <tr> <td>CALCIUM</td> <td>8.1 mg/dL</td> <td>8.5-10.1</td> </tr> <tr> <td>BLOOD UREA NITROGEN</td> <td>4 mg/dL</td> <td>7-20</td> </tr> <tr> <td>CREATININE</td> <td>0.5 mg/dL</td> <td> 0.6-1.0</td> </tr> <tr> <td>SODIUM</td> <td>138 mmol/L</td> <td>135-148</td> </tr> <tr> <td> CHLORIDE</td> <td>107 mmol/L</td> <td>98-110</td> </tr > <tr> <td>CARBON DIOXIDE</td> <td>25 mmol/L</td> <td>21-32</td> </tr> <tr> <th colspan="10">CBC - 11/24 04:35</th> </tr> <tr> <td>MEAN CELL HGB</td> <td>25.4 pg</td> <td>27.0-33.0</td> </tr> <tr> <td>MEAN CELL HGB CONCENTRATION</td> <td>30.0 g/dL</td> < td>32.0-37.0</td> </tr> <tr> <td>MEAN CELL VOLUME</td> <td>84.6 fl</td> <td>80.0-100.0</td> </tr> <tr> <td>RED BLOOD CELL</td> <td>2.72 m/cumm</td> <td>4.00 -6.00</td> </tr> <tr> <td>RED CELL DISTRIBUTION WIDTH</td > <td>16.4 %</td> <td>11.0-15.6</td> </tr> < tr> <td>WHITE BLOOD CELL</td> <td>3.9 k/cumm</td> <td >5.0-10.0</td> </tr> <tr> <td>HEMOGLOBIN</td> < td>6.9 gm/dL</td> <td>12.0-16.0</td> </tr> <tr> <td>HEMATOCRIT</td> <td>23.0 %</td> <td>37.0-47.0</td> </tr> <tr> <td>PLATELET COUNT</td> <td>349 k/cumm< /td> <td>150-400</td> </tr> <tr> <th colspan="10 ">GLUCOSE (POC) - 04/18/15 06:25</th> </tr> <tr> <td> GLUCOSE (POC)</td> <td>97 mg/dL</td> <td>70-99</td> </ tr> <tr> <th colspan="10">GLUCOSE (POC) - 04/18/15 11:05</th> </tr> <tr> <td>GLUCOSE (POC)</td> <td>106 mg/dL</ td> <td>70-99</td> </tr> <tr> <th colspan="10"> FERRITIN - 04/18/15 12:36</th> </tr> <tr> <td>FERRITIN</ td> <td>124 ng/mL</td> <td>8-252</td> </tr> <tr > <th colspan="10">GLUCOSE (POC) - 04/18/15 16:18</th> </tr> <tr> <td>GLUCOSE (POC)</td> <td>93 mg/dL</td> < td>70-99</td> </tr> <tr> <th colspan="10">GLUCOSE (POC) - 04/18/15 21:06</th> </tr> <tr> <td>GLUCOSE (POC)</td> <td>105 mg/dL</td> <td>70-99</td> </tr> <tr> <th colspan="10">CBC - 04/19/15 04:25</th> </tr> <tr> <td>MEAN CELL HGB</td> <td>25.1 pg</td> <td>27.0-33.0</td > </tr> <tr> <td>MEAN CELL HGB CONCENTRATION</td> <td>30.4 g/dL</td> <td>32.0-37.0</td> </tr> <tr> <td>MEAN CELL VOLUME</td> <td>82.6 fl</td> <td>80.0-100.0 </td> </tr> <tr> <td>RED BLOOD CELL</td> <td> 3.11 m/cumm</td> <td>4.00-6.00</td> </tr> <tr> < td>RED CELL DISTRIBUTION WIDTH</td> <td>15.9 %</td> <td> 11.0-15.6</td> </tr> <tr> <td>WHITE BLOOD CELL</td> <td>5.3 k/cumm</td> <td>5.0-10.0</td> </tr> <tr> <td>HEMOGLOBIN</td> <td>7.8 gm/dL</td> <td>12.0-16.0</ td> </tr> <tr> <td>HEMATOCRIT</td> <td>25.7 &#37 ;</td> <td>37.0-47.0</td> </tr> <tr> <td> PLATELET COUNT</td> <td>372 k/cumm</td> <td>150-400</td> </tr> <tr> <th colspan="10">GLUCOSE (POC) - 04/19/15 06:21</ th> </tr> <tr> <td>GLUCOSE (POC)</td> <td>94 mg/ dL</td> <td>70-99</td> </tr> <tr> <th colspan= "10">GLUCOSE (POC) - 04/19/15 12:14</th> </tr> <tr> <td> GLUCOSE (POC)</td> <td>95 mg/dL</td> <td>70-99</td> </ tr> <tr> <th colspan="10">GLUCOSE (POC) - 04/19/15 18:02</th> </tr> <tr> <td>GLUCOSE (POC)</td> <td>94 mg/dL</ td> <td>70-99</td> </tr> <tr> <th colspan="10"> GLUCOSE (POC) - 04/19/15 21:05</th> </tr> <tr> <td> GLUCOSE (POC)</td> <td>115 mg/dL</td> <td>70-99</td> </ tr> <tr> <th colspan="10">GLUCOSE (POC) - 04/20/15 06:14</th> </tr> <tr> <td>GLUCOSE (POC)</td> <td>106 mg/dL</ td> <td>70-99</td> </tr> <tr> <th colspan="10"> GLUCOSE (POC) - 04/20/15 11:56</th> </tr> <tr> <td> GLUCOSE (POC)</td> <td>101 mg/dL</td> <td>70-99</td> </ tr> <tr> <th colspan="10">GLUCOSE (POC) - 04/20/15 16:28</th> </tr> <tr> <td>GLUCOSE (POC)</td> <td>105 mg/dL</ td> <td>70-99</td> </tr> <tr> <th colspan="10"> GLUCOSE (POC) - 04/20/15 20:27</th> </tr> <tr> <td> GLUCOSE (POC)</td> <td>111 mg/dL</td> <td>70-99</td> </ tr> <tr> <th colspan="10">GLUCOSE (POC) - 04/21/15 05:41</th> </tr> <tr> <td>GLUCOSE (POC)</td> <td>105 mg/dL</ td> <td>70-99</td> </tr> <tr> <th colspan="10"> MRSA SURVEILLANCE SCREEN - 04/21/15 06:45</th> </tr> <tr> <td>Microbiology</td> <td> </td> <td /> </tr> <tr> <th colspan="10">GLUCOSE (POC) - 04/21/15 21:19</th> </tr> <tr> <td>GLUCOSE (POC)</td> <td>104 mg/dL</td> <td>70-99</td> </tr> <tr> <th colspan="10">GLUCOSE ( POC) - 04/22/15 05:35</th> </tr> <tr> <td>GLUCOSE (POC)</ td> <td>99 mg/dL</td> <td>70-99</td> </tr> <tr> <th colspan="10">GLUCOSE (POC) - 04/22/15 10:55</th> </tr> <tr> <td>GLUCOSE (POC)</td> <td>107 mg/dL</td> < td>70-99</td> </tr> <tr> <th colspan="10">Complete blood count (CBC) with automated white blood cell (WBC) differential - 11/20/15 11:15< /th> </tr> <tr> <td>Blood leukocytes automated count ( number/volume)</td> <td>10.8 10*3/uL</td> <td>4.3-11.0</td> </tr> <tr> <td>Blood erythrocytes automated count (number/ volume)</td> <td>4.88 10*6/uL</td> <td>4.35-5.85</td> < /tr> <tr> <td>Venous blood hemoglobin measurement (mass/volume)< /td> <td>11.3 g/dL</td> <td>11.5-16.0</td> </tr> <tr> <td>Blood hematocrit (volume fraction)</td> <td>36 &#37 ;</td> <td>35-52</td> </tr> <tr> <td>Automated erythrocyte mean corpuscular volume</td> <td>74 [foz_us]</td> <td>80-99</td> </tr> <tr> <td>Automated erythrocyte mean corpuscular hemoglobin (mass per erythrocyte)</td> <td>23 pg</td> <td>25-34</td> </tr> <tr> <td>Automated erythrocyte mean corpuscular hemoglobin concentration measurement (mass/volume)</td> <td>31 g/dL</td> <td>32-36</td> </tr> <tr> < td>Automated erythrocyte distribution width ratio</td> <td>18.2 %</ td> <td>10.0-14.5</td> </tr> <tr> <td>Automated blood platelet count (count/volume)</td> <td>459 10*3/uL</td> <td>130-400</td> </tr> <tr> <td>Automated blood platelet mean volume measurement</td> <td>9.7 [foz_us]</td> <td>7.4- 10.4</td> </tr> <tr> <td>Automated blood neutrophils/100 leukocytes</td> <td>55 %</td> <td>42-75</td> </tr> <tr> <td>Automated blood lymphocytes/100 leukocytes</td> <td>37 %</td> <td>12-44</td> </tr> <tr> <td>Blood monocytes/100 leukocytes</td> <td>6 %</td> <td>0 -12</td> </tr> <tr> <td>Automated blood eosinophils/100 leukocytes</td> <td>2 %</td> <td>0-10</td> </tr> <tr> <td>Automated blood basophils/100 leukocytes</td> < td>0 %</td> <td>0-10</td> </tr> <tr> <td> Blood neutrophils automated count (number/volume)</td> <td>5.9 10*3</td > <td>1.8-7.8</td> </tr> <tr> <td>Blood lymphocytes automated count (number/volume)</td> <td>4.0 10*3</td> <td>1.0-4.0</td> </tr> <tr> <td>Blood monocytes automated count (number/volume)</td> <td>0.6 10*3</td> <td>0.0 -1.0</td> </tr> <tr> <td>Automated eosinophil count</td> <td>0.2 10*3/uL</td> <td>0.0-0.3</td> </tr> <tr > <td>Automated blood basophil count (count/volume)</td> <td> 0.0 10*3/uL</td> <td>0.0-0.1</td> </tr> <tr> < th colspan="10">Complete blood count (CBC) with automated white blood cell (WBC ) differential - 12/31/15 11:49</th> </tr> <tr> <td> Blood leukocytes automated count (number/volume)</td> <td>9.4 10*3/uL</ td> <td>4.3-11.0</td> </tr> <tr> <td>Blood erythrocytes automated count (number/volume)</td> <td>5.00 10*6/uL</td > <td>4.35-5.85</td> </tr> <tr> <td>Venous blood hemoglobin measurement (mass/volume)</td> <td>11.7 g/dL</td> <td>11.5-16.0</td> </tr> <tr> <td>Blood hematocrit (volume fraction)</td> <td>38 %</td> <td>35-52</td> </tr> <tr> <td>Automated erythrocyte mean corpuscular volume</ td> <td>75 [foz_us]</td> <td>80-99</td> </tr> < tr> <td>Automated erythrocyte mean corpuscular hemoglobin (mass per erythrocyte)</td> <td>23 pg</td> <td>25-34</td> </tr> <tr> <td>Automated erythrocyte mean corpuscular hemoglobin concentration measurement (mass/volume)</td> <td>31 g/dL</td> <td>32-36</td> </tr> <tr> <td>Automated erythrocyte distribution width ratio</td> <td>18.3 %</td> <td>10.0- 14.5</td> </tr> <tr> <td>Automated blood platelet count ( count/volume)</td> <td>554 10*3/uL</td> <td>130-400</td> </tr> <tr> <td>Automated blood platelet mean volume measurement</td> <td>9.7 [foz_us]</td> <td>7.4-10.4</td> </tr> <tr> <td>Automated blood neutrophils/100 leukocytes</td > <td>60 %</td> <td>42-75</td> </tr> <tr> <td>Automated blood lymphocytes/100 leukocytes</td> <td>32 &#37 ;</td> <td>12-44</td> </tr> <tr> <td>Blood monocytes/100 leukocytes</td> <td>5 %</td> <td>0-12</td> </tr> <tr> <td>Automated blood eosinophils/100 leukocytes </td> <td>2 %</td> <td>0-10</td> </tr> <tr> <td>Automated blood basophils/100 leukocytes</td> <td>0 % </td> <td>0-10</td> </tr> <tr> <td>Blood neutrophils automated count (number/volume)</td> <td>4.9 10*3</td> <td>1.8-7.8</td> </tr> <tr> <td>Blood lymphocytes automated count (number/volume)</td> <td>2.6 10*3</td> <td>1.0 -4.0</td> </tr> <tr> <td>Blood monocytes automated count (number/volume)</td> <td>0.4 10*3</td> <td>0.0-1.0</td> </tr> <tr> <td>Automated eosinophil count</td> <td> 0.2 10*3/uL</td> <td>0.0-0.3</td> </tr> <tr> <td >Automated blood basophil count (count/volume)</td> <td>0.0 10*3/uL</td > <td>0.0-0.1</td> </tr> <tr> < colspan="10"> Comprehensive metabolic panel - 12/31/15 11:49</th> </tr> <tr> <td>Serum or plasma sodium measurement (moles/volume)</td> <td> 137 mmol/L</td> <td>135-145</td> </tr> <tr> <td> Serum or plasma potassium measurement (moles/volume)</td> <td>4.4 mmol/ L</td> <td>3.6-5.0</td> </tr> <tr> <td>Serum or plasma chloride measurement (moles/volume)</td> <td>108 mmol/L</td> <td>98-107</td> </tr> <tr> <td>Carbon dioxide</td > <td>19 mmol/L</td> <td>21-32</td> </tr> <tr> <td>Serum or plasma anion gap determination (moles/volume)</td> <td>10 mmol/L</td> <td>5-14</td> </tr> <tr> < td>Serum or plasma urea nitrogen measurement (mass/volume)</td> <td>8 mg/dL</td> <td>7-18</td> </tr> <tr> <td>Serum or plasma creatinine measurement (mass/volume)</td> <td>0.73 mg/dL</td > <td>0.60-1.30</td> </tr> <tr> <td>Serum or plasma urea nitrogen/creatinine mass ratio</td> <td>11 </td> < td>NRG</td> </tr> <tr> <td>Serum or plasma creatinine measurement with calculation of estimated glomerular filtration rate</td> <td>> </td> <td>NRG</td> </tr> <tr> <td> Serum or plasma glucose measurement (mass/volume)</td> <td>96 mg/dL</td > <td>70-105</td> </tr> <tr> <td>Serum or plasma calcium measurement (mass/volume)</td> <td>9.8 mg/dL</td> <td>8.5-10.1</td> </tr> <tr> <td>Serum or plasma total bilirubin measurement (mass/volume)</td> <td>0.3 mg/dL</td> <td>0.1-1.0</td> </tr> <tr> <td>Serum or plasma alkaline phosphatase measurement (enzymatic activity/volume)</td> <td> 56 U/L</td> <td>40-136</td> </tr> <tr> <td> Serum or plasma aspartate aminotransferase measurement (enzymatic activity/ volume)</td> <td>22 U/L</td> <td>5-34</td> </tr> <tr> <td>Serum or plasma alanine aminotransferase measurement ( enzymatic activity/volume)</td> <td>14 U/L</td> <td>0-55</td> </tr> <tr> <td>Serum or plasma protein measurement (mass /volume)</td> <td>8.4 g/dL</td> <td>6.4-8.2</td> </tr> <tr> <td>Serum or plasma albumin measurement (mass/volume)</td > <td>4.4 g/dL</td> <td>3.2-4.5</td> </tr> <tr> < colspan="10">Serum or plasma salicylates measurement (mass/volume ) - 12/31/15 11:49</th> </tr> <tr> <td>Serum or plasma salicylates measurement (mass/volume)</td> <td>< mg/dL</td> <td>5.0-20.0</td> </tr> <tr> < colspan="10">Serum or plasma acetaminophen measurement (mass/volume) - 12/31/15 11:49</th> </tr > <tr> <td>Serum or plasma acetaminophen measurement (mass/ volume)</td> <td>< ug/mL</td> <td>10-30</td> </tr> <tr> <th colspan="10">Serum or plasma ethanol measurement (mass/ volume) - 12/31/15 11:49</th> </tr> <tr> <td>Serum or plasma ethanol measurement (mass/volume)</td> <td>< mg/dL</td> <td><10</td> </tr> <tr> <th colspan="10"> Complete urinalysis with reflex to culture - 12/31/15 13:13</th> </tr> <tr> <td>Urine color determination</td> <td>YELLOW </td > <td>NRG</td> </tr> <tr> <td>Urine clarity determination</td> <td>SLIGHTLY CLOUDY </td> <td>NRG</td> </tr> <tr> <td>Urine pH measurement by test strip</td> <td>6.5 </td> <td>5-9</td> </tr> <tr> <td> Specific gravity of urine by test strip</td> <td>1.010 </td> < td>1.016-1.022</td> </tr> <tr> <td>Urine protein assay by test strip, semi-quantitative</td> <td>NEGATIVE </td> <td> NEGATIVE</td> </tr> <tr> <td>Urine glucose detection by automated test strip</td> <td>NEGATIVE </td> <td>NEGATIVE</td > </tr> <tr> <td>Erythrocytes detection in urine sediment by light microscopy</td> <td>4+ </td> <td>NEGATIVE</ td> </tr> <tr> <td>Urine ketones detection by automated test strip</td> <td>3+ </td> <td>NEGATIVE</td> </tr> <tr> <td>Urine nitrite detection by test strip</td> <td> NEGATIVE </td> <td>NEGATIVE</td> </tr> <tr> <td> Urine total bilirubin detection by test strip</td> <td>NEGATIVE </td> <td>NEGATIVE</td> </tr> <tr> <td>Urine urobilinogen measurement by automated test strip (mass/volume)</td> <td >NORMAL </td> <td>NORMAL</td> </tr> <tr> <td> Urine leukocyte esterase detection by dipstick</td> <td>NEGATIVE </td> <td>NEGATIVE</td> </tr> <tr> <td>Automated urine sediment erythrocyte count by microscopy (number/high power field)</td> <td>RARE </td> <td>NRG</td> </tr> <tr> < td>Automated urine sediment leukocyte count by microscopy (number/high power field)</td> <td> [HPF]</td> <td>NRG</td> </tr> < tr> <td>Bacteria detection in urine sediment by light microscopy</td> <td>NEGATIVE </td> <td>NRG</td> </tr> <tr> <td>Squamous epithelial cells detection in urine sediment by light microscopy</td> <td>2-5 </td> <td>NRG</td> </tr> <tr> <td>Crystals detection in urine sediment by light microscopy</td > <td>NONE </td> <td>NRG</td> </tr> <tr> <td>Casts detection in urine sediment by light microscopy</td> <td> NONE </td> <td>NRG</td> </tr> <tr> <td>Mucus detection in urine sediment by light microscopy</td> <td>NEGATIVE </td > <td>NRG</td> </tr> <tr> <td>Complete urinalysis with reflex to culture</td> <td>NO </td> <td>NRG</ td> </tr> <tr> <td>Yeast detection in urine sediment by light microscopy</td> <td>FEW </td> <td>NRG</td> </tr> <tr> < colspan="10">Urine drug screening test - 12/31/15 13: 13</th> </tr> <tr> <td>Urine phencyclidine detection by screening method</td> <td>NEGATIVE </td> <td>NEGATIVE</td> </tr> <tr> <td>Urine benzodiazepines detection by screening method</td> <td>POSITIVE </td> <td>NEGATIVE</td> </tr> <tr> <td>Urine cocaine detection</td> <td> NEGATIVE </td> <td>NEGATIVE</td> </tr> <tr> <td> Urine amphetamines detection by screening method</td> <td>NEGATIVE </td > <td>NEGATIVE</td> </tr> <tr> <td>Urine methamphetamine detection by screening method</td> <td>NEGATIVE </td> <td>NEGATIVE</td> </tr> <tr> <td>Urine cannabinoids detection by screening method</td> <td>NEGATIVE </td> <td>NEGATIVE</td> </tr> <tr> <td>Urine opiates detection by screening method</td> <td>NEGATIVE </td> <td> NEGATIVE</td> </tr> <tr> <td>Urine barbiturates detection </td> <td>NEGATIVE </td> <td>NEGATIVE</td> </tr> <tr> <td>Screening urine tricyclic antidepressants detection</td> <td>NEGATIVE </td> <td>NEGATIVE</td> </tr> <tr> <td>Urine methadone detection by screening method</td> <td> NEGATIVE </td> <td>NEGATIVE</td> </tr> <tr> <td> Urine oxycodone detection</td> <td>NEGATIVE </td> <td>NEGATIVE </td> </tr> <tr> <td>Urine propoxyphene detection</td> <td>NEGATIVE </td> <td>NEGATIVE</td> </tr> <tr> <td>Urine buprenophrine screen</td> <td>NEGATIVE </td> <td>NEGATIVE</td> </tr> <tr> <th colspan="10"> Capillary blood glucose measurement by glucometer (mass/volume) - 12/31/15 21:30 </th> </tr> <tr> <td>Capillary blood glucose measurement by glucometer (mass/volume)</td> <td>118 mg/dL</td> <td>70-110 </td> </tr> <tr> <th colspan="10">Complete blood count ( CBC) with automated white blood cell (WBC) differential - 01/01/16 05:13</th> </tr> <tr> <td>Blood leukocytes automated count (number/ volume)</td> <td>7.2 10*3/uL</td> <td>4.3-11.0</td> </ tr> <tr> <td>Blood erythrocytes automated count (number/volume)< /td> <td>4.09 10*6/uL</td> <td>4.35-5.85</td> </tr> <tr> <td>Venous blood hemoglobin measurement (mass/volume)</td> <td>9.5 g/dL</td> <td>11.5-16.0</td> </tr> <tr> <td>Blood hematocrit (volume fraction)</td> <td>31 %</td> <td>35-52</td> </tr> <tr> <td>Automated erythrocyte mean corpuscular volume</td> <td>76 [foz_us]</td> <td>80-99</td> </tr> <tr> <td>Automated erythrocyte mean corpuscular hemoglobin (mass per erythrocyte)</td> <td>23 pg</td> <td>25-34</td> </tr> <tr> <td>Automated erythrocyte mean corpuscular hemoglobin concentration measurement (mass/volume)</td> <td>31 g/dL</td> <td>32-36</td> </tr> <tr> < td>Automated erythrocyte distribution width ratio</td> <td>17.9 %</ td> <td>10.0-14.5</td> </tr> <tr> <td>Automated blood platelet count (count/volume)</td> <td>473 10*3/uL</td> <td>130-400</td> </tr> <tr> <td>Automated blood platelet mean volume measurement</td> <td>9.9 [foz_us]</td> <td>7.4- 10.4</td> </tr> <tr> <td>Automated blood neutrophils/100 leukocytes</td> <td>43 %</td> <td>42-75</td> </tr> <tr> <td>Automated blood lymphocytes/100 leukocytes</td> <td>47 %</td> <td>12-44</td> </tr> <tr> <td>Blood monocytes/100 leukocytes</td> <td>7 %</td> <td>0 -12</td> </tr> <tr> <td>Automated blood eosinophils/100 leukocytes</td> <td>3 %</td> <td>0-10</td> </tr> <tr> <td>Automated blood basophils/100 leukocytes</td> < td>0 %</td> <td>0-10</td> </tr> <tr> <td> Blood neutrophils automated count (number/volume)</td> <td>3.1 10*3</td > <td>1.8-7.8</td> </tr> <tr> <td>Blood lymphocytes automated count (number/volume)</td> <td>3.4 10*3</td> <td>1.0-4.0</td> </tr> <tr> <td>Blood monocytes automated count (number/volume)</td> <td>0.5 10*3</td> <td>0.0 -1.0</td> </tr> <tr> <td>Automated eosinophil count</td> <td>0.2 10*3/uL</td> <td>0.0-0.3</td> </tr> <tr > <td>Automated blood basophil count (count/volume)</td> <td> 0.0 10*3/uL</td> <td>0.0-0.1</td> </tr> <tr> < colspan="10">Comprehensive metabolic panel - 01/01/16 05:13</th> </tr > <tr> <td>Serum or plasma sodium measurement (moles/volume)</td > <td>139 mmol/L</td> <td>135-145</td> </tr> <tr > <td>Serum or plasma potassium measurement (moles/volume)</td> <td>3.8 mmol/L</td> <td>3.6-5.0</td> </tr> <tr> <td>Serum or plasma chloride measurement (moles/volume)</td> <td> 113 mmol/L</td> <td>98-107</td> </tr> <tr> <td> Carbon dioxide</td> <td>16 mmol/L</td> <td>21-32</td> < /tr> <tr> <td>Serum or plasma anion gap determination (moles/ volume)</td> <td>10 mmol/L</td> <td>5-14</td> </tr> <tr> <td>Serum or plasma urea nitrogen measurement (mass/volume)</ td> <td>8 mg/dL</td> <td>7-18</td> </tr> <tr> <td>Serum or plasma creatinine measurement (mass/volume)</td> < td>0.62 mg/dL</td> <td>0.60-1.30</td> </tr> <tr> <td>Serum or plasma urea nitrogen/creatinine mass ratio</td> <td>13 < /td> <td>NRG</td> </tr> <tr> <td>Serum or plasma creatinine measurement with calculation of estimated glomerular filtration rate</td> <td>> </td> <td>NRG</td> </tr> <tr> <td>Serum or plasma glucose measurement (mass/volume)</td > <td>89 mg/dL</td> <td>70-105</td> </tr> <tr> <td>Serum or plasma calcium measurement (mass/volume)</td> <td >8.6 mg/dL</td> <td>8.5-10.1</td> </tr> <tr> <td >Serum or plasma total bilirubin measurement (mass/volume)</td> <td> 0.3 mg/dL</td> <td>0.1-1.0</td> </tr> <tr> <td> Serum or plasma alkaline phosphatase measurement (enzymatic activity/volume)</td > <td>44 U/L</td> <td>40-136</td> </tr> <tr> <td>Serum or plasma aspartate aminotransferase measurement (enzymatic activity/volume)</td> <td>12 U/L</td> <td>5-34</td> </ tr> <tr> <td>Serum or plasma alanine aminotransferase measurement (enzymatic activity/volume)</td> <td>12 U/L</td> < td>0-55</td> </tr> <tr> <td>Serum or plasma protein measurement (mass/volume)</td> <td>5.9 g/dL</td> <td>6.4-8.2</ td> </tr> <tr> <td>Serum or plasma albumin measurement ( mass/volume)</td> <td>3.4 g/dL</td> <td>3.2-4.5</td> </ tr> <tr> <th colspan="10">Serum or plasma phosphate measurement (mass/volume) - 01/01/16 05:13</th> </tr> <tr> <td>Serum or plasma phosphate measurement (mass/volume)</td> <td>3.7 mg/dL</td> <td>2.3-4.7</td> </tr> <tr> <th colspan="10"> Magnesium - 01/01/16 05:13</th> </tr> <tr> <td>Magnesium< /td> <td>2.1 mg/dL</td> <td>1.8-2.4</td> </tr> < tr> <th colspan="10">Complete blood count (CBC) with automated white blood cell (WBC) differential - 08/23/16 14:55</th> </tr> <tr> <td>Blood leukocytes automated count (number/volume)</td> <td> 10.3 10*3/uL</td> <td>4.3-11.0</td> </tr> <tr> < td>Blood erythrocytes automated count (number/volume)</td> <td>4.79 10* 6/uL</td> <td>4.35-5.85</td> </tr> <tr> <td> Venous blood hemoglobin measurement (mass/volume)</td> <td>11.5 g/dL</ td> <td>11.5-16.0</td> </tr> <tr> <td>Blood hematocrit (volume fraction)</td> <td>37 %</td> <td>35-52< /td> </tr> <tr> <td>Automated erythrocyte mean corpuscular volume</td> <td>77 [foz_us]</td> <td>80-99</td> </tr> <tr> <td>Automated erythrocyte mean corpuscular hemoglobin (mass per erythrocyte)</td> <td>24 pg</td> <td>25- 34</td> </tr> <tr> <td>Automated erythrocyte mean corpuscular hemoglobin concentration measurement (mass/volume)</td> <td >31 g/dL</td> <td>32-36</td> </tr> <tr> <td> Automated erythrocyte distribution width ratio</td> <td>17.3 %</td > <td>10.0-14.5</td> </tr> <tr> <td>Automated blood platelet count (count/volume)</td> <td>456 10*3/uL</td> <td>130-400</td> </tr> <tr> <td>Automated blood platelet mean volume measurement</td> <td>9.6 [foz_us]</td> <td>7.4- 10.4</td> </tr> <tr> <td>Automated blood neutrophils/100 leukocytes</td> <td>69 %</td> <td>42-75</td> </tr> <tr> <td>Automated blood lymphocytes/100 leukocytes</td> <td>23 %</td> <td>12-44</td> </tr> <tr> <td>Blood monocytes/100 leukocytes</td> <td>5 %</td> <td>0 -12</td> </tr> <tr> <td>Automated blood eosinophils/100 leukocytes</td> <td>2 %</td> <td>0-10</td> </tr> <tr> <td>Automated blood basophils/100 leukocytes</td> < td>0 %</td> <td>0-10</td> </tr> <tr> <td> Blood neutrophils automated count (number/volume)</td> <td>7.1 10*3</td > <td>1.8-7.8</td> </tr> <tr> <td>Blood lymphocytes automated count (number/volume)</td> <td>2.4 10*3</td> <td>1.0-4.0</td> </tr> <tr> <td>Blood monocytes automated count (number/volume)</td> <td>0.6 10*3</td> <td>0.0 -1.0</td> </tr> <tr> <td>Automated eosinophil count</td> <td>0.3 10*3/uL</td> <td>0.0-0.3</td> </tr> <tr > <td>Automated blood basophil count (count/volume)</td> <td> 0.0 10*3/uL</td> <td>0.0-0.1</td> </tr> <tr> < colspan="10">Comprehensive metabolic panel - 08/23/16 14:55</th> </tr > <tr> <td>Serum or plasma sodium measurement (moles/volume)</td > <td>139 mmol/L</td> <td>135-145</td> </tr> <tr > <td>Serum or plasma potassium measurement (moles/volume)</td> <td>4.0 mmol/L</td> <td>3.6-5.0</td> </tr> <tr> <td>Serum or plasma chloride measurement (moles/volume)</td> <td> 107 mmol/L</td> <td>98-107</td> </tr> <tr> <td> Carbon dioxide</td> <td>25 mmol/L</td> <td>21-32</td> < /tr> <tr> <td>Serum or plasma anion gap determination (moles/ volume)</td> <td>7 mmol/L</td> <td>5-14</td> </tr> <tr> <td>Serum or plasma urea nitrogen measurement (mass/volume)</ td> <td>8 mg/dL</td> <td>7-18</td> </tr> <tr> <td>Serum or plasma creatinine measurement (mass/volume)</td> < td>0.75 mg/dL</td> <td>0.60-1.30</td> </tr> <tr> <td>Serum or plasma urea nitrogen/creatinine mass ratio</td> <td>11 < /td> <td>NRG</td> </tr> <tr> <td>Serum or plasma creatinine measurement with calculation of estimated glomerular filtration rate</td> <td>> </td> <td>NRG</td> </tr> <tr> <td>Serum or plasma glucose measurement (mass/volume)</td > <td>90 mg/dL</td> <td>70-105</td> </tr> <tr> <td>Serum or plasma calcium measurement (mass/volume)</td> <td >9.6 mg/dL</td> <td>8.5-10.1</td> </tr> <tr> <td >Serum or plasma total bilirubin measurement (mass/volume)</td> <td> 0.2 mg/dL</td> <td>0.1-1.0</td> </tr> <tr> <td> Serum or plasma alkaline phosphatase measurement (enzymatic activity/volume)</td > <td>50 U/L</td> <td>40-136</td> </tr> <tr> <td>Serum or plasma aspartate aminotransferase measurement (enzymatic activity/volume)</td> <td>12 U/L</td> <td>5-34</td> </ tr> <tr> <td>Serum or plasma alanine aminotransferase measurement (enzymatic activity/volume)</td> <td>11 U/L</td> < td>0-55</td> </tr> <tr> <td>Serum or plasma protein measurement (mass/volume)</td> <td>7.4 g/dL</td> <td>6.4-8.2</ td> </tr> <tr> <td>Serum or plasma albumin measurement ( mass/volume)</td> <td>4.1 g/dL</td> <td>3.2-4.5</td> </ tr> <tr> <th colspan="10">Serum or plasma C reactive protein measurement (mass/volume) - 08/23/16 14:55</th> </tr> <tr> <td>Serum or plasma C reactive protein measurement (mass/volume)</td> <td>1.27 mg/dL</td> <td>0.00-0.50</td> </tr> <tr> < colspan="10">Complete urinalysis with reflex to culture - 08/23/16 15: 39</th> </tr> <tr> <td>Urine color determination</td> <td>YELLOW </td> <td>NRG</td> </tr> <tr> <td>Urine clarity determination</td> <td>CLEAR </td> <td>NRG</ td> </tr> <tr> <td>Urine pH measurement by test strip</td > <td>6 </td> <td>5-9</td> </tr> <tr> < td>Specific gravity of urine by test strip</td> <td>1.020 </td> <td>1.016-1.022</td> </tr> <tr> <td>Urine protein assay by test strip, semi-quantitative</td> <td>NEGATIVE </td> <td>NEGATIVE</td> </tr> <tr> <td>Urine glucose detection by automated test strip</td> <td>NEGATIVE </td> <td> NEGATIVE</td> </tr> <tr> <td>Erythrocytes detection in urine sediment by light microscopy</td> <td>NEGATIVE </td> <td >NEGATIVE</td> </tr> <tr> <td>Urine ketones detection by automated test strip</td> <td>1+ </td> <td>NEGATIVE</td> </tr> <tr> <td>Urine nitrite detection by test strip</td> <td>NEGATIVE </td> <td>NEGATIVE</td> </tr> <tr> <td>Urine total bilirubin detection by test strip</td> <td> NEGATIVE </td> <td>NEGATIVE</td> </tr> <tr> <td> Urine urobilinogen measurement by automated test strip (mass/volume)</td> <td>NORMAL </td> <td>NORMAL</td> </tr> <tr> <td>Urine leukocyte esterase detection by dipstick</td> <td>1+ </td> <td>NEGATIVE</td> </tr> <tr> <td>Automated urine sediment erythrocyte count by microscopy (number/high power field)</td> <td>NONE </td> <td>NRG</td> </tr> <tr> <td> Automated urine sediment leukocyte count by microscopy (number/high power field) </td> <td> [HPF]</td> <td>NRG</td> </tr> <tr> <td>Bacteria detection in urine sediment by light microscopy</td> <td>TRACE </td> <td>NRG</td> </tr> <tr> <td> Squamous epithelial cells detection in urine sediment by light microscopy</td> <td>5-10 </td> <td>NRG</td> </tr> <tr> <td>Crystals detection in urine sediment by light microscopy</td> <td> NONE </td> <td>NRG</td> </tr> <tr> <td>Casts detection in urine sediment by light microscopy</td> <td>NONE </td> <td>NRG</td> </tr> <tr> <td>Mucus detection in urine sediment by light microscopy</td> <td>SMALL </td> <td> NRG</td> </tr> <tr> <td>Complete urinalysis with reflex to culture</td> <td>NO </td> <td>NRG</td> </tr> <tr> < colspan="10">Urine drug screening test - 08/23/16 15:39</th> </tr> <tr> <td>Urine phencyclidine detection by screening method</td> <td>NEGATIVE </td> <td>NEGATIVE</td> </tr> <tr> <td>Urine benzodiazepines detection by screening method</td> <td>NEGATIVE </td> <td>NEGATIVE</td> </tr> <tr> <td>Urine cocaine detection</td> <td> NEGATIVE </td> <td>NEGATIVE</td> </tr> <tr> <td> Urine amphetamines detection by screening method</td> <td>NEGATIVE </td > <td>NEGATIVE</td> </tr> <tr> <td>Urine methamphetamine detection by screening method</td> <td>NEGATIVE </td> <td>NEGATIVE</td> </tr> <tr> <td>Urine cannabinoids detection by screening method</td> <td>NEGATIVE </td> <td>NEGATIVE</td> </tr> <tr> <td>Urine opiates detection by screening method</td> <td>NEGATIVE </td> <td> NEGATIVE</td> </tr> <tr> <td>Urine barbiturates detection </td> <td>NEGATIVE </td> <td>NEGATIVE</td> </tr> <tr> <td>Screening urine tricyclic antidepressants detection</td> <td>NEGATIVE </td> <td>NEGATIVE</td> </tr> <tr> <td>Urine methadone detection by screening method</td> <td> NEGATIVE </td> <td>NEGATIVE</td> </tr> <tr> <td> Urine oxycodone detection</td> <td>NEGATIVE </td> <td>NEGATIVE </td> </tr> <tr> <td>Urine propoxyphene detection</td> <td>NEGATIVE </td> <td>NEGATIVE</td> </tr> <tr> < colspan="10">Complete urinalysis with reflex to culture - 03/24/17 00:43</th> </tr> <tr> <td>Urine color determination</td> <td>YELLOW </td> <td>NRG</td> </tr> <tr> <td>Urine clarity determination</td> <td>CLEAR </td> <td> NRG</td> </tr> <tr> <td>Urine pH measurement by test strip</td> <td>6.5 </td> <td>5-9</td> </tr> <tr > <td>Specific gravity of urine by test strip</td> <td>1.020 < /td> <td>1.016-1.022</td> </tr> <tr> <td>Urine protein assay by test strip, semi-quantitative</td> <td>2+ </td> <td>NEGATIVE</td> </tr> <tr> <td>Urine glucose detection by automated test strip</td> <td>NEGATIVE </td> <td> NEGATIVE</td> </tr> <tr> <td>Erythrocytes detection in urine sediment by light microscopy</td> <td>3+ </td> <td> NEGATIVE</td> </tr> <tr> <td>Urine ketones detection by automated test strip</td> <td>NEGATIVE </td> <td>NEGATIVE</td > </tr> <tr> <td>Urine nitrite detection by test strip</ td> <td>NEGATIVE </td> <td>NEGATIVE</td> </tr> < tr> <td>Urine total bilirubin detection by test strip</td> <td >NEGATIVE </td> <td>NEGATIVE</td> </tr> <tr> <td >Urine urobilinogen measurement by automated test strip (mass/volume)</td> <td>4 mg/dL</td> <td>NORMAL</td> </tr> <tr> <td>Urine leukocyte esterase detection by dipstick</td> <td>1+ </td> <td>NEGATIVE</td> </tr> <tr> <td>Automated urine sediment erythrocyte count by microscopy (number/high power field)</td> <td> [HPF]</td> <td>NRG</td> </tr> <tr> <td>Automated urine sediment leukocyte count by microscopy (number/high power field)</td> <td>RARE </td> <td>NRG</td> </tr> < tr> <td>Bacteria detection in urine sediment by light microscopy</td> <td>TRACE </td> <td>NRG</td> </tr> <tr> <td>Squamous epithelial cells detection in urine sediment by light microscopy< /td> <td>10-25 </td> <td>NRG</td> </tr> <tr> <td>Crystals detection in urine sediment by light microscopy</td> <td>NONE </td> <td>NRG</td> </tr> <tr> <td> Casts detection in urine sediment by light microscopy</td> <td>NONE </ td> <td>NRG</td> </tr> <tr> <td>Mucus detection in urine sediment by light microscopy</td> <td>SMALL </td> <td >NRG</td> </tr> <tr> <td>Complete urinalysis with reflex to culture</td> <td>NO </td> <td>NRG</td> </tr> <tr> <th colspan="10">Chlamydia trachomatis DNA detection by probe and signal amplification method - 03/24/17 01:30</th> </tr> <tr> <td>Chlamydia trachomatis DNA detection by probe and target amplification method</td> <td>Not Detected </td> <td>Not Detected</td> </tr> <tr> <th colspan="10">Neisseria gonorrhoeae DNA detection by probe and signal amplification method - 03/24/17 01:30</th> </tr> <tr> <td>Gonorrhea amp DNA-urine</td> <td>Not Detected </td> <td>Not Detected</td> </tr> <tr> <th colspan="10">Bacteria identification in genital specimen by aerobe culture - 03/24/17 01:30</th> </tr> <tr> <td>FREE TEXT EXTERNAL</ td> <td>PLUS NORMAL NYA </td> <td>NRG</td> </tr> <tr> <td>QUANTITY OF GROWTH</td> <td>Moderate Growth </td > <td>NRG</td> </tr> <tr> <td>Bacteria identification in genital specimen by aerobe culture</td> <td>[id number] </td> <td>NRG</td> </tr> <tr> <th colspan="10"> Microscopic examination by OLGA preparation - 03/24/17 01:30</th> </tr> <tr> <td>Microscopic examination by OLGA preparation</td> <td>TNP </td> <td>NRG</td> </tr> <tr> <th colspan="10">Microscopic examination by wet preparation - 03/24/17 01:30</th> </tr> <tr> <td>WET PREP RESULTS</td> <td>03-15-17/ KD </td> <td>NRG</td> </tr> </tbody> </table> </text> <entry> <organizer moodCode="EVN" classCode="BATTERY"> <templateId root= "[id number]..22.4.1" /> <id nullFlavor="NA" /> <code codeSystem="local" code="CBCD" displayName="CBC W/DIFF" /> <statusCode code ="completed" /> <component> <observation moodCode="EVN" classCode= "OBS"> <templateId root="[id number]..22.4.2" /> < id nullFlavor="NA" /> <code codeSystem="local" code="EO#" displayName= "EOSINOPHIL #" /> <statusCode code="completed" /> < effectiveTime value="[id number]" /> <value unit="k/cumm" xsi:type="PQ " value="0.1" /> <referenceRange> <observationRange> <text>0.1-0.5</text> </observationRange> </ referenceRange> </observation> </component> <component> <observation moodCode="EVN" classCode="OBS"> <templateId root= "[id number]..22.4.2" /> <id nullFlavor="NA" /> < code codeSystem="local" code="EO%" displayName="EOSINOPHIL %" /> <statusCode code="completed" /> <effectiveTime value="" /> <value unit="%" xsi:type="PQ" value="1" /> < interpretationCode codeSystem="local" code="*" /> <referenceRange> <observationRange> <text>2-4</text> </ observationRange> </referenceRange> </observation> </ component> <component> <observation moodCode="EVN" classCode="OBS"> <templateId root="[id number]..4.2" /> <id nullFlavor="NA" /> <code codeSystem="local" code="GR#" displayName= "GRANULOCYTE #" /> <statusCode code="completed" /> < effectiveTime value="" /> <value unit="k/cumm" xsi:type="PQ " value="9.5" /> <interpretationCode codeSystem="local" code="*" /> <referenceRange> <observationRange> <text>2.0-9.0 </text> </observationRange> </referenceRange> </ observation> </component> <component> <observation moodCode= "EVN" classCode="OBS"> <templateId root="[id number] " /> <id nullFlavor="NA" /> <code codeSystem="local" code="GR& #37;" displayName="GRANULOCYTE %" /> <statusCode code="completed" / > <effectiveTime value="" /> <value unit="%" xsi:type="PQ" value="73" /> <referenceRange> < observationRange> <text>50-75</text> </observationRange > </referenceRange> </observation> </component> < component> <observation moodCode="EVN" classCode="OBS"> < templateId root="[id number]" /> <id nullFlavor="NA " /> <code codeSystem="local" code="LY#" displayName="LYMPHOCYTE #" /> <statusCode code="completed" /> <effectiveTime value= "" /> <value unit="k/cumm" xsi:type="PQ" value="2.7" /> <referenceRange> <observationRange> <text>1.0-4.0 </text> </observationRange> </referenceRange> </ observation> </component> <component> <observation moodCode= "EVN" classCode="OBS"> <templateId root="[id number] " /> <id nullFlavor="NA" /> <code codeSystem="local" code="LY& #37;" displayName="LYMPHOCYTE %" /> <statusCode code="completed" / > <effectiveTime value="" /> <value unit="%" xsi:type="PQ" value="20" /> <referenceRange> < observationRange> <text>20-30</text> </observationRange > </referenceRange> </observation> </component> < component> <observation moodCode="EVN" classCode="OBS"> < templateId root="[id number]" /> <id nullFlavor="NA " /> <code codeSystem="local" code="MCH" displayName="MEAN CELL HGB" / > <statusCode code="completed" /> <effectiveTime value= "" /> <value unit="pg" xsi:type="PQ" value="26.1" /> <interpretationCode codeSystem="local" code="*" /> <referenceRange > <observationRange> <text>27.0-33.0</text> < /observationRange> </referenceRange> </observation> </ component> <component> <observation moodCode="EVN" classCode="OBS"> <templateId root="[id number]" /> <id nullFlavor="NA" /> <code codeSystem="local" code="MCHC" displayName= "MEAN CELL HGB CONCENTRATION" /> <statusCode code="completed" /> <effectiveTime value="" /> <value unit="g/dL" xsi:type= "PQ" value="31.4" /> <interpretationCode codeSystem="local" code="*" / > <referenceRange> <observationRange> <text> 32.0-37.0</text> </observationRange> </referenceRange> </observation> </component> <component> <observation moodCode="EVN" classCode="OBS"> <templateId root= "[id number]2.4.2" /> <id nullFlavor="NA" /> < code codeSystem="local" code="MCV" displayName="MEAN CELL VOLUME" /> < statusCode code="completed" /> <effectiveTime value="" /> <value unit="fl" xsi:type="PQ" value="83.1" /> <referenceRange > <observationRange> <text>80.0-100.0</text> </observationRange> </referenceRange> </observation> </ component> <component> <observation moodCode="EVN" classCode="OBS"> <templateId root="05.27.840.1.432317.1022.4.2" /> <id nullFlavor="NA" /> <code codeSystem="local" code="MO#" displayName= "MONOCYTE #" /> <statusCode code="completed" /> < effectiveTime value="" /> <value unit="k/cumm" xsi:type="PQ " value="0.8" /> <referenceRange> <observationRange> <text>0.1-1.0</text> </observationRange> </ referenceRange> </observation> </component> <component> <observation moodCode="EVN" classCode="OBS"> <templateId root= "[id number]...4.2" /> <id nullFlavor="NA" /> < code codeSystem="local" code="MO%" displayName="MONOCYTE %" /> <statusCode code="completed" /> <effectiveTime value="" /> <value unit="%" xsi:type="PQ" value="6" /> < referenceRange> <observationRange> <text>4-6</text> </observationRange> </referenceRange> </observation> </component> <component> <observation moodCode="EVN" classCode= "OBS"> <templateId root="[id number]....4.2" /> < id nullFlavor="NA" /> <code codeSystem="local" code="RBC" displayName= "RED BLOOD CELL" /> <statusCode code="completed" /> < effectiveTime value="" /> <value unit="m/cumm" xsi:type="PQ " value="4.26" /> <referenceRange> <observationRange> <text>4.00-6.00</text> </observationRange> </ referenceRange> </observation> </component> <component> <observation moodCode="EVN" classCode="OBS"> <templateId root= "[id number]" /> <id nullFlavor="NA" /> < code codeSystem="local" code="RDW" displayName="RED CELL DISTRIBUTION WIDTH" /> <statusCode code="completed" /> <effectiveTime value= "" /> <value unit="%" xsi:type="PQ" value="15.9" /> <interpretationCode codeSystem="local" code="*" /> < referenceRange> <observationRange> <text>11.0-15.6</text > </observationRange> </referenceRange> </observation > </component> <component> <observation moodCode="EVN" classCode="OBS"> <templateId root="[id number]" /> <id nullFlavor="NA" /> <code codeSystem="local" code="WBC" displayName="WHITE BLOOD CELL" /> <statusCode code="completed" /> <effectiveTime value="" /> <value unit="k/cumm" xsi: type="PQ" value="13.1" /> <interpretationCode codeSystem="local" code= "*" /> <referenceRange> <observationRange> < text>5.0-10.0</text> </observationRange> </referenceRange> </observation> </component> <component> <observation moodCode="EVN" classCode="OBS"> <templateId root= "[id number]" /> <id nullFlavor="NA" /> < code codeSystem="local" code="HGBT" displayName="HEMOGLOBIN" /> < statusCode code="completed" /> <effectiveTime value="" /> <value unit="gm/dL" xsi:type="PQ" value="11.1" /> < interpretationCode codeSystem="local" code="*" /> <referenceRange> <observationRange> <text>12.0-16.0</text> </ observationRange> </referenceRange> </observation> </ component> <component> <observation moodCode="EVN" classCode="OBS"> <templateId root="[id number]..22.4.2" /> <id nullFlavor="NA" /> <code codeSystem="local" code="HCTT" displayName= "HEMATOCRIT" /> <statusCode code="completed" /> < effectiveTime value="" /> <value unit="%" xsi:type="PQ " value="35.4" /> <interpretationCode codeSystem="local" code="*" /> <referenceRange> <observationRange> <text>37.0- 47.0</text> </observationRange> </referenceRange> </ observation> </component> <component> <observation moodCode= "EVN" classCode="OBS"> <templateId root="[id number]..22.4.2 " /> <id nullFlavor="NA" /> <code codeSystem="local" code="PLT " displayName="PLATELET COUNT" /> <statusCode code="completed" /> <effectiveTime value="" /> <value unit="k/cumm" xsi: type="PQ" value="376" /> <referenceRange> <observationRange > <text>150-400</text> </observationRange> </ referenceRange> </observation> </component> </organizer> </entry > <entry> <organizer moodCode="EVN" classCode="BATTERY"> <templateId root="05.27.840.1.736629.10..22.4.1" /> <id nullFlavor="NA" /> <code codeSystem="local" code="PT" displayName="PROTHROMBIN TIME WITH INR" /> < statusCode code="completed" /> <component> <observation moodCode= "EVN" classCode="OBS"> <templateId root="16.840.1.439404.22.4.2 " /> <id nullFlavor="NA" /> <code codeSystem="local" code= "INRX" displayName="INTERNATIONAL NORMAL RATIO" /> <statusCode code= "completed" /> <effectiveTime value="" /> <value unit="" xsi:type="PQ" value="1.1" /> <referenceRange> < observationRange> <text>0.9-1.1</text> </ observationRange> </referenceRange> </observation> </ component> <component> <observation moodCode="EVN" classCode="OBS"> <templateId root="216.840.1.483271.01.28.22.4.2" /> <id nullFlavor="NA" /> <code codeSystem="local" code="PTPAT" displayName= "PROTHROMBIN TIME" /> <statusCode code="completed" /> < effectiveTime value="" /> <value unit="sec" xsi:type="PQ" value="12.3" /> <interpretationCode codeSystem="local" code="*" /> <referenceRange> <observationRange> <text>9.3-12.2 </text> </observationRange> </referenceRange> </ observation> </component> </organizer> </entry> <entry> <organizer moodCode="EVN" classCode="BATTERY"> <templateId root= "216.840.1.433529.22.4.1" /> <id nullFlavor="NA" /> <code codeSystem="local" code="METABC" displayName="METABOLIC PANEL, COMPREHN" /> <statusCode code="completed" /> <component> <observation moodCode= "EVN" classCode="OBS"> <templateId root="16.840.1.816072.10...4.2 " /> <id nullFlavor="NA" /> <code codeSystem="local" code="K" displayName="POTASSIUM" /> <statusCode code="completed" /> < effectiveTime value="" /> <value unit="mmol/L" xsi:type="PQ " value="3.4" /> <interpretationCode codeSystem="local" code="*" /> <referenceRange> <observationRange> <text>3.5-5.3 </text> </observationRange> </referenceRange> </ observation> </component> <component> <observation moodCode= "EVN" classCode="OBS"> <templateId root="840.1.810899.01.28.22.4.2 " /> <id nullFlavor="NA" /> <code codeSystem="local" code= "eGFR" displayName="EST GFR (MDRD)" /> <statusCode code="completed" /> <effectiveTime value="" /> <value unit="mL/min" xsi:type="PQ" value="> 60" /> <referenceRange> < observationRange> <text>> 59</text> </ observationRange> </referenceRange> </observation> </ component> <component> <observation moodCode="EVN" classCode="OBS"> <templateId root="05.27.840.1.618127.10..22.4.2" /> <id nullFlavor="NA" /> <code codeSystem="local" code="GAP" displayName= "ANION GAP" /> <statusCode code="completed" /> <effectiveTime value="" /> <value unit="mmol/L" xsi:type="PQ" value="13" / > <referenceRange> <observationRange> <text>5- 15</text> </observationRange> </referenceRange> </ observation> </component> <component> <observation moodCode= "EVN" classCode="OBS"> <templateId root="16.840.1.065703.10..22.4.2 " /> <id nullFlavor="NA" /> <code codeSystem="local" code= "eCrCl" displayName="EST CrCl (CG)" /> <statusCode code="completed" /> <effectiveTime value="" /> <value unit="mL/min" xsi:type="PQ" value="> 60" /> <referenceRange> < observationRange> <text>> 59</text> </ observationRange> </referenceRange> </observation> </ component> <component> <observation moodCode="EVN" classCode="OBS"> <templateId root="16.840.1.531944.10..22.4.2" /> <id nullFlavor="NA" /> <code codeSystem="local" code="GLU" displayName= "GLUCOSE" /> <statusCode code="completed" /> <effectiveTime value="" /> <value unit="mg/dL" xsi:type="PQ" value="77" / > <referenceRange> <observationRange> <text>70- 99</text> </observationRange> </referenceRange> </ observation> </component> <component> <observation moodCode= "EVN" classCode="OBS"> <templateId root="05.27.840.1.785251.22.4.2 " /> <id nullFlavor="NA" /> <code codeSystem="local" code="CA " displayName="CALCIUM" /> <statusCode code="completed" /> < effectiveTime value="" /> <value unit="mg/dL" xsi:type="PQ " value="8.8" /> <referenceRange> <observationRange> <text>8.5-10.1</text> </observationRange> </ referenceRange> </observation> </component> <component> <observation moodCode="EVN" classCode="OBS"> <templateId root= "2.16.840.1.576098.01.28.22.4.2" /> <id nullFlavor="NA" /> < code codeSystem="local" code="BUN" displayName="BLOOD UREA NITROGEN" /> <statusCode code="completed" /> <effectiveTime value="" / > <value unit="mg/dL" xsi:type="PQ" value="7" /> < referenceRange> <observationRange> <text>7-20</text> </observationRange> </referenceRange> </observation> </component> <component> <observation moodCode="EVN" classCode= "OBS"> <templateId root="216.840.1.708596...4.2" /> < id nullFlavor="NA" /> <code codeSystem="local" code="CREAT" displayName ="CREATININE" /> <statusCode code="completed" /> < effectiveTime value="" /> <value unit="mg/dL" xsi:type="PQ " value="0.8" /> <referenceRange> <observationRange> <text>0.6-1.0</text> </observationRange> </ referenceRange> </observation> </component> <component> <observation moodCode="EVN" classCode="OBS"> <templateId root= "216.840.1.275861.10..22.4.2" /> <id nullFlavor="NA" /> < code codeSystem="local" code="NA" displayName="SODIUM" /> <statusCode code="completed" /> <effectiveTime value="" /> < value unit="mmol/L" xsi:type="PQ" value="137" /> <referenceRange> <observationRange> <text>135-148</text> </ observationRange> </referenceRange> </observation> </ component> <component> <observation moodCode="EVN" classCode="OBS"> <templateId root="216.840.1.703232.10...4.2" /> <id nullFlavor="NA" /> <code codeSystem="local" code="CL" displayName= "CHLORIDE" /> <statusCode code="completed" /> <effectiveTime value="" /> <value unit="mmol/L" xsi:type="PQ" value="100" /> <referenceRange> <observationRange> <text>98 -110</text> </observationRange> </referenceRange> </ observation> </component> <component> <observation moodCode= "EVN" classCode="OBS"> <templateId root="16.840.1.160980.10..22.4.2 " /> <id nullFlavor="NA" /> <code codeSystem="local" code="AST " displayName="AST/SGOT" /> <statusCode code="completed" /> < effectiveTime value="" /> <value unit="Units/L" xsi:type= "PQ" value="14" /> <referenceRange> <observationRange> <text>10-37</text> </observationRange> </ referenceRange> </observation> </component> <component> <observation moodCode="EVN" classCode="OBS"> <templateId root= "216.840.1.743660.1022.4.2" /> <id nullFlavor="NA" /> < code codeSystem="local" code="ALT" displayName="ALT/SGPT" /> < statusCode code="completed" /> <effectiveTime value="" /> <value unit="Units/L" xsi:type="PQ" value="17" /> < referenceRange> <observationRange> <text>< 66</text> </observationRange> </referenceRange> </observation > </component> <component> <observation moodCode="EVN" classCode="OBS"> <templateId root="216.840.1.639737.10.4.2" /> <id nullFlavor="NA" /> <code codeSystem="local" code="CO2" displayName="CARBON DIOXIDE" /> <statusCode code="completed" /> <effectiveTime value="" /> <value unit="mmol/L" xsi:type ="PQ" value="24" /> <referenceRange> <observationRange> <text>21-32</text> </observationRange> </ referenceRange> </observation> </component> <component> <observation moodCode="EVN" classCode="OBS"> <templateId root= "216.840.1.545014.10.22.4.2" /> <id nullFlavor="NA" /> < code codeSystem="local" code="TP" displayName="TOTAL PROTEIN" /> < statusCode code="completed" /> <effectiveTime value="" /> <value unit="gm/dL" xsi:type="PQ" value="7.9" /> < referenceRange> <observationRange> <text>6.4-8.2</text> </observationRange> </referenceRange> </observation > </component> <component> <observation moodCode="EVN" classCode="OBS"> <templateId root="05.27.840.1.067944.10.20.22.4.2" /> <id nullFlavor="NA" /> <code codeSystem="local" code="ALB" displayName="ALBUMIN" /> <statusCode code="completed" /> < effectiveTime value="" /> <value unit="gm/dL" xsi:type="PQ " value="3.7" /> <referenceRange> <observationRange> <text>3.4-5.0</text> </observationRange> </ referenceRange> </observation> </component> <component> <observation moodCode="EVN" classCode="OBS"> <templateId root= "840.1.561165.10.22.4.2" /> <id nullFlavor="NA" /> < code codeSystem="local" code="BILTOT" displayName="BILI TOTAL" /> < statusCode code="completed" /> <effectiveTime value="" /> <value unit="mg/dL" xsi:type="PQ" value="0.3" /> < referenceRange> <observationRange> <text>0.0-1.0</text> </observationRange> </referenceRange> </observation > </component> <component> <observation moodCode="EVN" classCode="OBS"> <templateId root="05.27.840.1.112517.10.20.22.4.2" /> <id nullFlavor="NA" /> <code codeSystem="local" code="ALKP" displayName="ALKALINE PHOSPHATASE TOTAL" /> <statusCode code="completed " /> <effectiveTime value="037133408423" /> <value unit="IU/L " xsi:type="PQ" value="49" /> <referenceRange> < observationRange> <text>45-117</text> </observationRange > </referenceRange> </observation> </component> </ organizer> </entry> <entry> <organizer moodCode="EVN" classCode="BATTERY"> <templateId root="216.840.1.564062.10.20.22.4.1" /> <id nullFlavor= "NA" /> <code codeSystem="local" code="GLUMON" displayName="GLUCOSE (POC)" /> <statusCode code="completed" /> <component> <observation moodCode="EVN" classCode="OBS"> <templateId root= "216.840.1.863603.10.20.22.4.2" /> <id nullFlavor="NA" /> < code codeSystem="local" code="GLUMON" displayName="GLUCOSE (POC)" /> < statusCode code="completed" /> <effectiveTime value="855000040581" /> <value unit="mg/dL" xsi:type="PQ" value="105" /> < interpretationCode codeSystem="local" code="*" /> <referenceRange> <observationRange> <text>70-99</text> </ observationRange> </referenceRange> </observation> </ component> </organizer> </entry> <entry> <organizer moodCode="EVN" classCode="BATTERY"> <templateId root="216.840.1.565119.10.20.22.4.1" /> <id nullFlavor="NA" /> <code codeSystem="local" code="GLUMON" displayName="GLUCOSE (POC)" /> <statusCode code="completed" /> < component> <observation moodCode="EVN" classCode="OBS"> < templateId root="216.840.1.404604.10..22.4.2" /> <id nullFlavor="NA " /> <code codeSystem="local" code="GLUMON" displayName="GLUCOSE (POC) " /> <statusCode code="completed" /> <effectiveTime value= "074116821600" /> <value unit="mg/dL" xsi:type="PQ" value="106" /> <interpretationCode codeSystem="local" code="*" /> < referenceRange> <observationRange> <text>70-99</text> </observationRange> </referenceRange> </observation> </component> </organizer> </entry> <entry> <organizer moodCode="EVN " classCode="BATTERY"> <templateId root="216.840.1.738975.10..22.4.1" / > <id nullFlavor="NA" /> <code codeSystem="local" code="CBC" displayName="CBC" /> <statusCode code="completed" /> <component> <observation moodCode="EVN" classCode="OBS"> <templateId root= "216.840.1.286977.10..22.4.2" /> <id nullFlavor="NA" /> < code codeSystem="local" code="MCH" displayName="MEAN CELL HGB" /> < statusCode code="completed" /> <effectiveTime value="624697145969" /> <value unit="pg" xsi:type="PQ" value="26.5" /> < interpretationCode codeSystem="local" code="*" /> <referenceRange> <observationRange> <text>27.0-33.0</text> </ observationRange> </referenceRange> </observation> </ component> <component> <observation moodCode="EVN" classCode="OBS"> <templateId root="216.840.1.765336.10..22.4.2" /> <id nullFlavor="NA" /> <code codeSystem="local" code="MCHC" displayName= "MEAN CELL HGB CONCENTRATION" /> <statusCode code="completed" /> <effectiveTime value="826728406703" /> <value unit="g/dL" xsi:type= "PQ" value="32.0" /> <referenceRange> <observationRange> <text>32.0-37.0</text> </observationRange> </ referenceRange> </observation> </component> <component> <observation moodCode="EVN" classCode="OBS"> <templateId root= "16.840.1.282621.01.28.22.4.2" /> <id nullFlavor="NA" /> < code codeSystem="local" code="MCV" displayName="MEAN CELL VOLUME" /> < statusCode code="completed" /> <effectiveTime value="269038053403" /> <value unit="fl" xsi:type="PQ" value="83.0" /> <referenceRange > <observationRange> <text>80.0-100.0</text> </observationRange> </referenceRange> </observation> </ component> <component> <observation moodCode="EVN" classCode="OBS"> <templateId root="216.840.1.723115.10..22.4.2" /> <id nullFlavor="NA" /> <code codeSystem="local" code="RBC" displayName=" RED BLOOD CELL" /> <statusCode code="completed" /> < effectiveTime value="929685561182" /> <value unit="m/cumm" xsi:type="PQ " value="4.07" /> <referenceRange> <observationRange> <text>4.00-6.00</text> </observationRange> </ referenceRange> </observation> </component> <component> <observation moodCode="EVN" classCode="OBS"> <templateId root= "216.840.1.899093.10.20.22.4.2" /> <id nullFlavor="NA" /> < code codeSystem="local" code="RDW" displayName="RED CELL DISTRIBUTION WIDTH" /> <statusCode code="completed" /> <effectiveTime value= "516125110076" /> <value unit="%" xsi:type="PQ" value="15.5" /> <referenceRange> <observationRange> <text>11.0- 15.6</text> </observationRange> </referenceRange> </ observation> </component> <component> <observation moodCode= "EVN" classCode="OBS"> <templateId root="840.1.172881.10..22.4.2 " /> <id nullFlavor="NA" /> <code codeSystem="local" code="WBC " displayName="WHITE BLOOD CELL" /> <statusCode code="completed" /> <effectiveTime value="781838895542" /> <value unit="k/cumm" xsi: type="PQ" value="9.1" /> <referenceRange> <observationRange > <text>5.0-10.0</text> </observationRange> </ referenceRange> </observation> </component> <component> <observation moodCode="EVN" classCode="OBS"> <templateId root= "05.27.840.1.209088.10.20.22.4.2" /> <id nullFlavor="NA" /> < code codeSystem="local" code="HGBT" displayName="HEMOGLOBIN" /> < statusCode code="completed" /> <effectiveTime value="677015771297" /> <value unit="gm/dL" xsi:type="PQ" value="10.8" /> < interpretationCode codeSystem="local" code="*" /> <referenceRange> <observationRange> <text>12.0-16.0</text> </ observationRange> </referenceRange> </observation> </ component> <component> <observation moodCode="EVN" classCode="OBS"> <templateId root="2.16.840.1.032481.10.20.22.4.2" /> <id nullFlavor="NA" /> <code codeSystem="local" code="HCTT" displayName= "HEMATOCRIT" /> <statusCode code="completed" /> < effectiveTime value="191663275317" /> <value unit="%" xsi:type="PQ " value="33.8" /> <interpretationCode codeSystem="local" code="*" /> <referenceRange> <observationRange> <text>37.0- 47.0</text> </observationRange> </referenceRange> </ observation> </component> <component> <observation moodCode= "EVN" classCode="OBS"> <templateId root="2.16.840.1.585916.10.20.22.4.2 " /> <id nullFlavor="NA" /> <code codeSystem="local" code="PLT " displayName="PLATELET COUNT" /> <statusCode code="completed" /> <effectiveTime value="755255393530" /> <value unit="k/cumm" xsi: type="PQ" value="327" /> <referenceRange> <observationRange > <text>150-400</text> </observationRange> </ referenceRange> </observation> </component> </organizer> </entry > <entry> <organizer moodCode="EVN" classCode="BATTERY"> <templateId root="05.27.840.1.949030.10..22.4.1" /> <id nullFlavor="NA" /> <code codeSystem="local" code="METABC" displayName="METABOLIC PANEL, COMPREHN" /> <statusCode code="completed" /> <component> <observation moodCode= "EVN" classCode="OBS"> <templateId root="05.27.840.1.510514.10..22.4.2 " /> <id nullFlavor="NA" /> <code codeSystem="local" code="K" displayName="POTASSIUM" /> <statusCode code="completed" /> < effectiveTime value="771261154027" /> <value unit="mmol/L" xsi:type="PQ " value="4.0" /> <referenceRange> <observationRange> <text>3.5-5.3</text> </observationRange> </ referenceRange> </observation> </component> <component> <observation moodCode="EVN" classCode="OBS"> <templateId root= "05.27.840.1.524301.10..22.4.2" /> <id nullFlavor="NA" /> < code codeSystem="local" code="eGFR" displayName="EST GFR (MDRD)" /> < statusCode code="completed" /> <effectiveTime value="603226715255" /> <value unit="mL/min" xsi:type="PQ" value="> 60" /> < referenceRange> <observationRange> <text>> 59</text> </observationRange> </referenceRange> </observation > </component> <component> <observation moodCode="EVN" classCode="OBS"> <templateId root="840.1.776719.01.28.22.4.2" /> <id nullFlavor="NA" /> <code codeSystem="local" code="GAP" displayName="ANION GAP" /> <statusCode code="completed" /> < effectiveTime value="336945067830" /> <value unit="mmol/L" xsi:type="PQ " value="6" /> <referenceRange> <observationRange> <text>5-15</text> </observationRange> </referenceRange > </observation> </component> <component> <observation moodCode="EVN" classCode="OBS"> <templateId root= "216.840.1.199902.01.28.22.4.2" /> <id nullFlavor="NA" /> < code codeSystem="local" code="eCrCl" displayName="EST CrCl (CG)" /> < statusCode code="completed" /> <effectiveTime value="731567632588" /> <value unit="mL/min" xsi:type="PQ" value="> 60" /> < referenceRange> <observationRange> <text>> 59</text> </observationRange> </referenceRange> </observation > </component> <component> <observation moodCode="EVN" classCode="OBS"> <templateId root="216.840.1.409068.01.28.22.4.2" /> <id nullFlavor="NA" /> <code codeSystem="local" code="GLU" displayName="GLUCOSE" /> <statusCode code="completed" /> < effectiveTime value="790696970064" /> <value unit="mg/dL" xsi:type="PQ " value="96" /> <referenceRange> <observationRange> <text>70-99</text> </observationRange> </ referenceRange> </observation> </component> <component> <observation moodCode="EVN" classCode="OBS"> <templateId root= "216.840.1.837481.10..4.2" /> <id nullFlavor="NA" /> < code codeSystem="local" code="CA" displayName="CALCIUM" /> <statusCode code="completed" /> <effectiveTime value="898639195310" /> < value unit="mg/dL" xsi:type="PQ" value="8.4" /> <interpretationCode codeSystem="local" code="*" /> <referenceRange> < observationRange> <text>8.5-10.1</text> </ observationRange> </referenceRange> </observation> </ component> <component> <observation moodCode="EVN" classCode="OBS"> <templateId root="05.27.840.1.050000.01.28.224.2" /> <id nullFlavor="NA" /> <code codeSystem="local" code="BUN" displayName= "BLOOD UREA NITROGEN" /> <statusCode code="completed" /> < effectiveTime value="" /> <value unit="mg/dL" xsi:type="PQ " value="5" /> <interpretationCode codeSystem="local" code="*" /> <referenceRange> <observationRange> <text>7-20</ text> </observationRange> </referenceRange> </ observation> </component> <component> <observation moodCode= "EVN" classCode="OBS"> <templateId root="16.840.1.403079.10.22.4.2 " /> <id nullFlavor="NA" /> <code codeSystem="local" code= "CREAT" displayName="CREATININE" /> <statusCode code="completed" /> <effectiveTime value="011838981027" /> <value unit="mg/dL" xsi: type="PQ" value="0.6" /> <referenceRange> <observationRange > <text>0.6-1.0</text> </observationRange> </ referenceRange> </observation> </component> <component> <observation moodCode="EVN" classCode="OBS"> <templateId root= "216.840.1.226291.10..4.2" /> <id nullFlavor="NA" /> < code codeSystem="local" code="NA" displayName="SODIUM" /> <statusCode code="completed" /> <effectiveTime value="351709125695" /> < value unit="mmol/L" xsi:type="PQ" value="134" /> <interpretationCode codeSystem="local" code="*" /> <referenceRange> < observationRange> <text>135-148</text> </ observationRange> </referenceRange> </observation> </ component> <component> <observation moodCode="EVN" classCode="OBS"> <templateId root="05.27.840.1.024564.01.28.22.4.2" /> <id nullFlavor="NA" /> <code codeSystem="local" code="CL" displayName= "CHLORIDE" /> <statusCode code="completed" /> <effectiveTime value="229449541219" /> <value unit="mmol/L" xsi:type="PQ" value="104" /> <referenceRange> <observationRange> <text>98 -110</text> </observationRange> </referenceRange> </ observation> </component> <component> <observation moodCode= "EVN" classCode="OBS"> <templateId root="16.840.1.746939.10..4.2 " /> <id nullFlavor="NA" /> <code codeSystem="local" code="AST " displayName="AST/SGOT" /> <statusCode code="completed" /> < effectiveTime value="714663921403" /> <value unit="Units/L" xsi:type= "PQ" value="13" /> <referenceRange> <observationRange> <text>10-37</text> </observationRange> </ referenceRange> </observation> </component> <component> <observation moodCode="EVN" classCode="OBS"> <templateId root= "16.840.1.258055.10..22.4.2" /> <id nullFlavor="NA" /> < code codeSystem="local" code="ALT" displayName="ALT/SGPT" /> < statusCode code="completed" /> <effectiveTime value="601109059705" /> <value unit="Units/L" xsi:type="PQ" value="15" /> < referenceRange> <observationRange> <text>< 66</text> </observationRange> </referenceRange> </observation > </component> <component> <observation moodCode="EVN" classCode="OBS"> <templateId root="16.840.1.600068.10..22.4.2" /> <id nullFlavor="NA" /> <code codeSystem="local" code="CO2" displayName="CARBON DIOXIDE" /> <statusCode code="completed" /> <effectiveTime value="220295797070" /> <value unit="mmol/L" xsi:type ="PQ" value="24" /> <referenceRange> <observationRange> <text>21-32</text> </observationRange> </ referenceRange> </observation> </component> <component> <observation moodCode="EVN" classCode="OBS"> <templateId root= "05.27.840.1.445042.01.28.22.4.2" /> <id nullFlavor="NA" /> < code codeSystem="local" code="TP" displayName="TOTAL PROTEIN" /> < statusCode code="completed" /> <effectiveTime value="440042877461" /> <value unit="gm/dL" xsi:type="PQ" value="7.3" /> < referenceRange> <observationRange> <text>6.4-8.2</text> </observationRange> </referenceRange> </observation > </component> <component> <observation moodCode="EVN" classCode="OBS"> <templateId root="05.27.840.1.775752.01.28.22.4.2" /> <id nullFlavor="NA" /> <code codeSystem="local" code="ALB" displayName="ALBUMIN" /> <statusCode code="completed" /> < effectiveTime value="224375020609" /> <value unit="gm/dL" xsi:type="PQ " value="3.4" /> <referenceRange> <observationRange> <text>3.4-5.0</text> </observationRange> </ referenceRange> </observation> </component> <component> <observation moodCode="EVN" classCode="OBS"> <templateId root= "05.27.840.1.428620.01.28.22.4.2" /> <id nullFlavor="NA" /> < code codeSystem="local" code="BILTOT" displayName="BILI TOTAL" /> < statusCode code="completed" /> <effectiveTime value="062225252590" /> <value unit="mg/dL" xsi:type="PQ" value="0.5" /> < referenceRange> <observationRange> <text>0.0-1.0</text> </observationRange> </referenceRange> </observation > </component> <component> <observation moodCode="EVN" classCode="OBS"> <templateId root="2.16.840.1.256101.10..22.4.2" /> <id nullFlavor="NA" /> <code codeSystem="local" code="ALKP" displayName="ALKALINE PHOSPHATASE TOTAL" /> <statusCode code="completed " /> <effectiveTime value="306397774012" /> <value unit="IU/L " xsi:type="PQ" value="49" /> <referenceRange> < observationRange> <text>45-117</text> </observationRange > </referenceRange> </observation> </component> </ organizer> </entry> <entry> <organizer moodCode="EVN" classCode="BATTERY"> <templateId root="216.840.1.571988.10..22.4.1" /> <id nullFlavor= "NA" /> <code codeSystem="local" code="MAG" displayName="MAGNESIUM" /> <statusCode code="completed" /> <component> <observation moodCode= "EVN" classCode="OBS"> <templateId root="2.16.840.1.736957.10..22.4.2 " /> <id nullFlavor="NA" /> <code codeSystem="local" code="MAG " displayName="MAGNESIUM" /> <statusCode code="completed" /> < effectiveTime value="400158083652" /> <value unit="mg/dL" xsi:type="PQ " value="1.7" /> <interpretationCode codeSystem="local" code="*" /> <referenceRange> <observationRange> <text>1.8-2.4 </text> </observationRange> </referenceRange> </ observation> </component> </organizer> </entry> <entry> <organizer moodCode="EVN" classCode="BATTERY"> <templateId root= "216.840.1.607518.10..22.4.1" /> <id nullFlavor="NA" /> <code codeSystem="local" code="PT" displayName="PROTHROMBIN TIME WITH INR" /> < statusCode code="completed" /> <component> <observation moodCode= "EVN" classCode="OBS"> <templateId root="216.840.1.453062.10..22.4.2 " /> <id nullFlavor="NA" /> <code codeSystem="local" code= "INRX" displayName="INTERNATIONAL NORMAL RATIO" /> <statusCode code= "completed" /> <effectiveTime value="304100929337" /> <value unit="" xsi:type="PQ" value="1.3" /> <interpretationCode codeSystem= "local" code="*" /> <referenceRange> <observationRange> <text>0.9-1.1</text> </observationRange> </ referenceRange> </observation> </component> <component> <observation moodCode="EVN" classCode="OBS"> <templateId root= "216.840.1.353911.10..22.4.2" /> <id nullFlavor="NA" /> < code codeSystem="local" code="PTPAT" displayName="PROTHROMBIN TIME" /> <statusCode code="completed" /> <effectiveTime value="[id number]" /> <value unit="sec" xsi:type="PQ" value="14.2" /> < interpretationCode codeSystem="local" code="*" /> <referenceRange> <observationRange> <text>9.3-12.2</text> </ observationRange> </referenceRange> </observation> </ component> </organizer> </entry> <entry> <organizer moodCode="EVN" classCode="BATTERY"> <templateId root="840.1.078221.01.28.22.4.1" /> <id nullFlavor="NA" /> <code codeSystem="local" code="PTT" displayName ="PARTIAL THROMBOPLASTIN TIME" /> <statusCode code="completed" /> < component> <observation moodCode="EVN" classCode="OBS"> < templateId root="840.1.592596.01.28.22.4.2" /> <id nullFlavor="NA " /> <code codeSystem="local" code="PTT" displayName="PARTIAL THROMBOPLASTIN TIME" /> <statusCode code="completed" /> < effectiveTime value="243712698267" /> <value unit="sec" xsi:type="PQ" value="41" /> <interpretationCode codeSystem="local" code="*" /> <referenceRange> <observationRange> <text>23-39</ text> </observationRange> </referenceRange> </ observation> </component> </organizer> </entry> <entry> <organizer moodCode="EVN" classCode="BATTERY"> <templateId root= "840.1.965178.01.28.22.4.1" /> <id nullFlavor="NA" /> <code codeSystem="local" code="GLUMON" displayName="GLUCOSE (POC)" /> < statusCode code="completed" /> <component> <observation moodCode= "EVN" classCode="OBS"> <templateId root="840.1.034272.01.28.22.4.2 " /> <id nullFlavor="NA" /> <code codeSystem="local" code= "GLUMON" displayName="GLUCOSE (POC)" /> <statusCode code="completed" / > <effectiveTime value="261870681456" /> <value unit="mg/dL" xsi:type="PQ" value="110" /> <interpretationCode codeSystem="local" code="*" /> <referenceRange> <observationRange> <text>70-99</text> </observationRange> </referenceRange> </observation> </component> </organizer> </entry> <entry> < organizer moodCode="EVN" classCode="BATTERY"> <templateId root= "216.840.1.970859.10..22.4.1" /> <id nullFlavor="NA" /> <code codeSystem="local" code="GLUMON" displayName="GLUCOSE (POC)" /> < statusCode code="completed" /> <component> <observation moodCode= "EVN" classCode="OBS"> <templateId root="216.840.1.952696.10..22.4.2 " /> <id nullFlavor="NA" /> <code codeSystem="local" code= "GLUMON" displayName="GLUCOSE (POC)" /> <statusCode code="completed" / > <effectiveTime value="[id number]" /> <value unit="mg/dL" xsi:type="PQ" value="99" /> <referenceRange> < observationRange> <text>70-99</text> </observationRange > </referenceRange> </observation> </component> </ organizer> </entry> <entry> <organizer moodCode="EVN" classCode="BATTERY"> <templateId root="216.840.1.355051.10..22.4.1" /> <id nullFlavor= "NA" /> <code codeSystem="local" code="PTTH" displayName="PTT HEPARIN PROTOCOLS" /> <statusCode code="completed" /> <component> < observation moodCode="EVN" classCode="OBS"> <templateId root= "2.16.840.1.893860.10..22.4.2" /> <id nullFlavor="NA" /> < code codeSystem="local" code="PTT" displayName="PARTIAL THROMBOPLASTIN TIME" /> <statusCode code="completed" /> <effectiveTime value= "608019305647" /> <value unit="sec" xsi:type="PQ" value="84" /> <interpretationCode codeSystem="local" code="*" /> <referenceRange> <observationRange> <text>23-39</text> </ observationRange> </referenceRange> </observation> </ component> </organizer> </entry> <entry> <organizer moodCode="EVN" classCode="BATTERY"> <templateId root="2.16.840.1.710373.10..22.4.1" /> <id nullFlavor="NA" /> <code codeSystem="local" code="GLUMON" displayName="GLUCOSE (POC)" /> <statusCode code="completed" /> < component> <observation moodCode="EVN" classCode="OBS"> < templateId root="2.16.840.1.244576.10.20.22.4.2" /> <id nullFlavor="NA " /> <code codeSystem="local" code="GLUMON" displayName="GLUCOSE (POC) " /> <statusCode code="completed" /> <effectiveTime value= "517874848097" /> <value unit="mg/dL" xsi:type="PQ" value="88" /> <referenceRange> <observationRange> <text>70-99</ text> </observationRange> </referenceRange> </ observation> </component> </organizer> </entry> <entry> <organizer moodCode="EVN" classCode="BATTERY"> <templateId root= "05.27.840.1.938606.10..22.4.1" /> <id nullFlavor="NA" /> <code codeSystem="local" code="CBC" displayName="CBC" /> <statusCode code= "completed" /> <component> <observation moodCode="EVN" classCode= "OBS"> <templateId root="05.27.840.1.485893.01.28.22.4.2" /> < id nullFlavor="NA" /> <code codeSystem="local" code="MCH" displayName= "MEAN CELL HGB" /> <statusCode code="completed" /> < effectiveTime value="644842926053" /> <value unit="pg" xsi:type="PQ" value="26.9" /> <interpretationCode codeSystem="local" code="*" /> <referenceRange> <observationRange> <text>27.0- 33.0</text> </observationRange> </referenceRange> </ observation> </component> <component> <observation moodCode= "EVN" classCode="OBS"> <templateId root="05.27.840.1.023856.10...4.2 " /> <id nullFlavor="NA" /> <code codeSystem="local" code= "MCHC" displayName="MEAN CELL HGB CONCENTRATION" /> <statusCode code= "completed" /> <effectiveTime value="111914797104" /> <value unit="g/dL" xsi:type="PQ" value="31.8" /> <interpretationCode codeSystem="local" code="*" /> <referenceRange> < observationRange> <text>32.0-37.0</text> </ observationRange> </referenceRange> </observation> </ component> <component> <observation moodCode="EVN" classCode="OBS"> <templateId root="05.27.840.1.086474.10.20.22.4.2" /> <id nullFlavor="NA" /> <code codeSystem="local" code="MCV" displayName= "MEAN CELL VOLUME" /> <statusCode code="completed" /> < effectiveTime value="305192012308" /> <value unit="fl" xsi:type="PQ" value="84.7" /> <referenceRange> <observationRange> <text>80.0-100.0</text> </observationRange> </ referenceRange> </observation> </component> <component> <observation moodCode="EVN" classCode="OBS"> <templateId root= "840.1.756411.1022.4.2" /> <id nullFlavor="NA" /> < code codeSystem="local" code="RBC" displayName="RED BLOOD CELL" /> < statusCode code="completed" /> <effectiveTime value="599369861278" /> <value unit="m/cumm" xsi:type="PQ" value="3.79" /> < interpretationCode codeSystem="local" code="*" /> <referenceRange> <observationRange> <text>4.00-6.00</text> </ observationRange> </referenceRange> </observation> </ component> <component> <observation moodCode="EVN" classCode="OBS"> <templateId root="840.1.760100.10.2022.4.2" /> <id nullFlavor="NA" /> <code codeSystem="local" code="RDW" displayName=" RED CELL DISTRIBUTION WIDTH" /> <statusCode code="completed" /> <effectiveTime value="776721992046" /> <value unit="%" xsi:type= "PQ" value="15.5" /> <referenceRange> <observationRange> <text>11.0-15.6</text> </observationRange> </ referenceRange> </observation> </component> <component> <observation moodCode="EVN" classCode="OBS"> <templateId root= "16.840.1.125844.10.20.22.4.2" /> <id nullFlavor="NA" /> < code codeSystem="local" code="WBC" displayName="WHITE BLOOD CELL" /> < statusCode code="completed" /> <effectiveTime value="801148923685" /> <value unit="k/cumm" xsi:type="PQ" value="10.0" /> < referenceRange> <observationRange> <text>5.0-10.0</text > </observationRange> </referenceRange> </observation > </component> <component> <observation moodCode="EVN" classCode="OBS"> <templateId root="05.27.840.1.069647.10..22.4.2" /> <id nullFlavor="NA" /> <code codeSystem="local" code="HGBT" displayName="HEMOGLOBIN" /> <statusCode code="completed" /> < effectiveTime value="946120267570" /> <value unit="gm/dL" xsi:type="PQ " value="10.2" /> <interpretationCode codeSystem="local" code="*" /> <referenceRange> <observationRange> <text>12.0- 16.0</text> </observationRange> </referenceRange> </ observation> </component> <component> <observation moodCode= "EVN" classCode="OBS"> <templateId root="05.27.840.1.122927.10.20.22.4.2 " /> <id nullFlavor="NA" /> <code codeSystem="local" code= "HCTT" displayName="HEMATOCRIT" /> <statusCode code="completed" /> <effectiveTime value="770317243280" /> <value unit="%" xsi: type="PQ" value="32.1" /> <interpretationCode codeSystem="local" code= "*" /> <referenceRange> <observationRange> < text>37.0-47.0</text> </observationRange> </referenceRange> </observation> </component> <component> <observation moodCode="EVN" classCode="OBS"> <templateId root= "216.840.1.055584.01.28.22.4.2" /> <id nullFlavor="NA" /> < code codeSystem="local" code="PLT" displayName="PLATELET COUNT" /> < statusCode code="completed" /> <effectiveTime value="" /> <value unit="k/cumm" xsi:type="PQ" value="296" /> < referenceRange> <observationRange> <text>150-400</text> </observationRange> </referenceRange> </observation > </component> </organizer> </entry> <entry> <organizer moodCode= "EVN" classCode="BATTERY"> <templateId root="216.840.1.889791.01.28.22.4.1 " /> <id nullFlavor="NA" /> <code codeSystem="local" code="PTTH" displayName="PTT HEPARIN PROTOCOLS" /> <statusCode code="completed" /> <component> <observation moodCode="EVN" classCode="OBS"> < templateId root="16.840.1.333180.10.4.2" /> <id nullFlavor="NA " /> <code codeSystem="local" code="PTT" displayName="PARTIAL THROMBOPLASTIN TIME" /> <statusCode code="completed" /> < effectiveTime value="" /> <value unit="sec" xsi:type="PQ" value="175" /> <interpretationCode codeSystem="local" code="" /> <referenceRange> <observationRange> <text>23-39</ text> </observationRange> </referenceRange> </ observation> </component> </organizer> </entry> <entry> <organizer moodCode="EVN" classCode="BATTERY"> <templateId root= "16.840.1.084408.10...4.1" /> <id nullFlavor="NA" /> <code codeSystem="local" code="METABC" displayName="METABOLIC PANEL, COMPREHN" /> <statusCode code="completed" /> <component> <observation moodCode= "EVN" classCode="OBS"> <templateId root="05.27.840.1.463635.10...4.2 " /> <id nullFlavor="NA" /> <code codeSystem="local" code="K" displayName="POTASSIUM" /> <statusCode code="completed" /> < effectiveTime value="" /> <value unit="mmol/L" xsi:type="PQ " value="4.0" /> <referenceRange> <observationRange> <text>3.5-5.3</text> </observationRange> </ referenceRange> </observation> </component> <component> <observation moodCode="EVN" classCode="OBS"> <templateId root= "05.27.840.1.660729.10...4.2" /> <id nullFlavor="NA" /> < code codeSystem="local" code="eGFR" displayName="EST GFR (MDRD)" /> < statusCode code="completed" /> <effectiveTime value="" /> <value unit="mL/min" xsi:type="PQ" value="> 60" /> < referenceRange> <observationRange> <text>> 59</text> </observationRange> </referenceRange> </observation > </component> <component> <observation moodCode="EVN" classCode="OBS"> <templateId root="216.840.1.661826.10...4.2" /> <id nullFlavor="NA" /> <code codeSystem="local" code="GAP" displayName="ANION GAP" /> <statusCode code="completed" /> < effectiveTime value="" /> <value unit="mmol/L" xsi:type="PQ " value="6" /> <referenceRange> <observationRange> <text>5-15</text> </observationRange> </referenceRange > </observation> </component> <component> <observation moodCode="EVN" classCode="OBS"> <templateId root= "16.840.1.933739.10..4.2" /> <id nullFlavor="NA" /> < code codeSystem="local" code="eCrCl" displayName="EST CrCl (CG)" /> < statusCode code="completed" /> <effectiveTime value="" /> <value unit="mL/min" xsi:type="PQ" value="> 60" /> < referenceRange> <observationRange> <text>> 59</text> </observationRange> </referenceRange> </observation > </component> <component> <observation moodCode="EVN" classCode="OBS"> <templateId root="16.840.1.934664.10..22.4.2" /> <id nullFlavor="NA" /> <code codeSystem="local" code="GLU" displayName="GLUCOSE" /> <statusCode code="completed" /> < effectiveTime value="" /> <value unit="mg/dL" xsi:type="PQ " value="81" /> <referenceRange> <observationRange> <text>70-99</text> </observationRange> </ referenceRange> </observation> </component> <component> <observation moodCode="EVN" classCode="OBS"> <templateId root= "2.16.840.1.078548.10.20.22.4.2" /> <id nullFlavor="NA" /> < code codeSystem="local" code="CA" displayName="CALCIUM" /> <statusCode code="completed" /> <effectiveTime value="" /> < value unit="mg/dL" xsi:type="PQ" value="8.1" /> <interpretationCode codeSystem="local" code="*" /> <referenceRange> < observationRange> <text>8.5-10.1</text> </ observationRange> </referenceRange> </observation> </ component> <component> <observation moodCode="EVN" classCode="OBS"> <templateId root="2.16.840.1.092958.10.20.22.4.2" /> <id nullFlavor="NA" /> <code codeSystem="local" code="BUN" displayName= "BLOOD UREA NITROGEN" /> <statusCode code="completed" /> < effectiveTime value="" /> <value unit="mg/dL" xsi:type="PQ " value="5" /> <interpretationCode codeSystem="local" code="*" /> <referenceRange> <observationRange> <text>7-20</ text> </observationRange> </referenceRange> </ observation> </component> <component> <observation moodCode= "EVN" classCode="OBS"> <templateId root="216.840.1.332621.10.20.22.4.2 " /> <id nullFlavor="NA" /> <code codeSystem="local" code= "CREAT" displayName="CREATININE" /> <statusCode code="completed" /> <effectiveTime value="" /> <value unit="mg/dL" xsi: type="PQ" value="0.6" /> <referenceRange> <observationRange > <text>0.6-1.0</text> </observationRange> </ referenceRange> </observation> </component> <component> <observation moodCode="EVN" classCode="OBS"> <templateId root= "16.840.1.220574.10..22.4.2" /> <id nullFlavor="NA" /> < code codeSystem="local" code="NA" displayName="SODIUM" /> <statusCode code="completed" /> <effectiveTime value="" /> < value unit="mmol/L" xsi:type="PQ" value="138" /> <referenceRange> <observationRange> <text>135-148</text> </ observationRange> </referenceRange> </observation> </ component> <component> <observation moodCode="EVN" classCode="OBS"> <templateId root="05.27.840.1.223352.10.20.22.4.2" /> <id nullFlavor="NA" /> <code codeSystem="local" code="CL" displayName= "CHLORIDE" /> <statusCode code="completed" /> <effectiveTime value="732958888525" /> <value unit="mmol/L" xsi:type="PQ" value="105" /> <referenceRange> <observationRange> <text>98 -110</text> </observationRange> </referenceRange> </ observation> </component> <component> <observation moodCode= "EVN" classCode="OBS"> <templateId root="216.840.1.525297.10.4.2 " /> <id nullFlavor="NA" /> <code codeSystem="local" code="AST " displayName="AST/SGOT" /> <statusCode code="completed" /> < effectiveTime value="" /> <value unit="Units/L" xsi:type= "PQ" value="49" /> <interpretationCode codeSystem="local" code="*" /> <referenceRange> <observationRange> <text>10-37 </text> </observationRange> </referenceRange> </ observation> </component> <component> <observation moodCode= "EVN" classCode="OBS"> <templateId root="05.27.840.1.432870.01.28.22.4.2 " /> <id nullFlavor="NA" /> <code codeSystem="local" code="ALT " displayName="ALT/SGPT" /> <statusCode code="completed" /> < effectiveTime value="" /> <value unit="Units/L" xsi:type= "PQ" value="22" /> <referenceRange> <observationRange> <text>< 66</text> </observationRange> </ referenceRange> </observation> </component> <component> <observation moodCode="EVN" classCode="OBS"> <templateId root= "216.840.1.794125.01.28.22.4.2" /> <id nullFlavor="NA" /> < code codeSystem="local" code="CO2" displayName="CARBON DIOXIDE" /> < statusCode code="completed" /> <effectiveTime value="" /> <value unit="mmol/L" xsi:type="PQ" value="27" /> < referenceRange> <observationRange> <text>21-32</text> </observationRange> </referenceRange> </observation> </component> <component> <observation moodCode="EVN" classCode= "OBS"> <templateId root="05.27.840.1.025834.10.20.22.4.2" /> < id nullFlavor="NA" /> <code codeSystem="local" code="TP" displayName= "TOTAL PROTEIN" /> <statusCode code="completed" /> < effectiveTime value="" /> <value unit="gm/dL" xsi:type="PQ " value="7.4" /> <referenceRange> <observationRange> <text>6.4-8.2</text> </observationRange> </ referenceRange> </observation> </component> <component> <observation moodCode="EVN" classCode="OBS"> <templateId root= "840.1.097039.10.22.4.2" /> <id nullFlavor="NA" /> < code codeSystem="local" code="ALB" displayName="ALBUMIN" /> < statusCode code="completed" /> <effectiveTime value="" /> <value unit="gm/dL" xsi:type="PQ" value="3.2" /> < interpretationCode codeSystem="local" code="*" /> <referenceRange> <observationRange> <text>3.4-5.0</text> </ observationRange> </referenceRange> </observation> </ component> <component> <observation moodCode="EVN" classCode="OBS"> <templateId root="05.27.840.1.021870.10.20.22.4.2" /> <id nullFlavor="NA" /> <code codeSystem="local" code="BILTOT" displayName= "BILI TOTAL" /> <statusCode code="completed" /> < effectiveTime value="408313567384" /> <value unit="mg/dL" xsi:type="PQ " value="0.4" /> <referenceRange> <observationRange> <text>0.0-1.0</text> </observationRange> </ referenceRange> </observation> </component> <component> <observation moodCode="EVN" classCode="OBS"> <templateId root= "840.1.157986..4.2" /> <id nullFlavor="NA" /> < code codeSystem="local" code="ALKP" displayName="ALKALINE PHOSPHATASE TOTAL" /> <statusCode code="completed" /> <effectiveTime value= "" /> <value unit="IU/L" xsi:type="PQ" value="48" /> <referenceRange> <observationRange> <text>45-117</ text> </observationRange> </referenceRange> </ observation> </component> </organizer> </entry> <entry> <organizer moodCode="EVN" classCode="BATTERY"> <templateId root= "05.27.840.1.877653.01.28.22.4.1" /> <id nullFlavor="NA" /> <code codeSystem="local" code="CBC" displayName="CBC" /> <statusCode code= "completed" /> <component> <observation moodCode="EVN" classCode= "OBS"> <templateId root="05.27.840.1.317370.10.4.2" /> < id nullFlavor="NA" /> <code codeSystem="local" code="MCH" displayName= "MEAN CELL HGB" /> <statusCode code="completed" /> < effectiveTime value="" /> <value unit="pg" xsi:type="PQ" value="26.5" /> <interpretationCode codeSystem="local" code="*" /> <referenceRange> <observationRange> <text>27.0- 33.0</text> </observationRange> </referenceRange> </ observation> </component> <component> <observation moodCode= "EVN" classCode="OBS"> <templateId root="216.840.1.367664.10.20.22.4.2 " /> <id nullFlavor="NA" /> <code codeSystem="local" code= "MCHC" displayName="MEAN CELL HGB CONCENTRATION" /> <statusCode code= "completed" /> <effectiveTime value="" /> <value unit="g/dL" xsi:type="PQ" value="31.5" /> <interpretationCode codeSystem="local" code="*" /> <referenceRange> < observationRange> <text>32.0-37.0</text> </ observationRange> </referenceRange> </observation> </ component> <component> <observation moodCode="EVN" classCode="OBS"> <templateId root="16.840.1.514303.10.20.22.4.2" /> <id nullFlavor="NA" /> <code codeSystem="local" code="MCV" displayName= "MEAN CELL VOLUME" /> <statusCode code="completed" /> < effectiveTime value="" /> <value unit="fl" xsi:type="PQ" value="84.1" /> <referenceRange> <observationRange> <text>80.0-100.0</text> </observationRange> </ referenceRange> </observation> </component> <component> <observation moodCode="EVN" classCode="OBS"> <templateId root= "216.840.1.748199.10.20.22.4.2" /> <id nullFlavor="NA" /> < code codeSystem="local" code="RBC" displayName="RED BLOOD CELL" /> < statusCode code="completed" /> <effectiveTime value="" /> <value unit="m/cumm" xsi:type="PQ" value="3.59" /> < interpretationCode codeSystem="local" code="*" /> <referenceRange> <observationRange> <text>4.00-6.00</text> </ observationRange> </referenceRange> </observation> </ component> <component> <observation moodCode="EVN" classCode="OBS"> <templateId root="16.840.1.677684.10...4.2" /> <id nullFlavor="NA" /> <code codeSystem="local" code="RDW" displayName=" RED CELL DISTRIBUTION WIDTH" /> <statusCode code="completed" /> <effectiveTime value="" /> <value unit="%" xsi:type= "PQ" value="15.4" /> <referenceRange> <observationRange> <text>11.0-15.6</text> </observationRange> </ referenceRange> </observation> </component> <component> <observation moodCode="EVN" classCode="OBS"> <templateId root= "16.840.1.841535.10.20.22.4.2" /> <id nullFlavor="NA" /> < code codeSystem="local" code="WBC" displayName="WHITE BLOOD CELL" /> < statusCode code="completed" /> <effectiveTime value="" /> <value unit="k/cumm" xsi:type="PQ" value="9.7" /> < referenceRange> <observationRange> <text>5.0-10.0</text > </observationRange> </referenceRange> </observation > </component> <component> <observation moodCode="EVN" classCode="OBS"> <templateId root="16.840.1.660153.10.20.22.4.2" /> <id nullFlavor="NA" /> <code codeSystem="local" code="HGBT" displayName="HEMOGLOBIN" /> <statusCode code="completed" /> < effectiveTime value="" /> <value unit="gm/dL" xsi:type="PQ " value="9.5" /> <interpretationCode codeSystem="local" code="*" /> <referenceRange> <observationRange> <text>12.0- 16.0</text> </observationRange> </referenceRange> </ observation> </component> <component> <observation moodCode= "EVN" classCode="OBS"> <templateId root="05.27.840.1.136770.10.20.22.4.2 " /> <id nullFlavor="NA" /> <code codeSystem="local" code= "HCTT" displayName="HEMATOCRIT" /> <statusCode code="completed" /> <effectiveTime value="" /> <value unit="%" xsi: type="PQ" value="30.2" /> <interpretationCode codeSystem="local" code= "*" /> <referenceRange> <observationRange> < text>37.0-47.0</text> </observationRange> </referenceRange> </observation> </component> <component> <observation moodCode="EVN" classCode="OBS"> <templateId root= "16.840.1.176457.10.20.22.4.2" /> <id nullFlavor="NA" /> < code codeSystem="local" code="PLT" displayName="PLATELET COUNT" /> < statusCode code="completed" /> <effectiveTime value="402135244906" /> <value unit="k/cumm" xsi:type="PQ" value="311" /> < referenceRange> <observationRange> <text>150-400</text> </observationRange> </referenceRange> </observation > </component> </organizer> </entry> <entry> <organizer moodCode= "EVN" classCode="BATTERY"> <templateId root="216.840.1.442597.10..22.4.1 " /> <id nullFlavor="NA" /> <code codeSystem="local" code="PREG" displayName=" TEST, SERUM" /> <statusCode code="completed" /> <component> <observation moodCode="EVN" classCode="OBS"> < templateId root="216.840.1.834350.10..22.4.2" /> <id nullFlavor="NA " /> <code codeSystem="local" code="PREG" displayName=" TEST, SERUM" /> <statusCode code="completed" /> <effectiveTime value ="456013226415" /> <value unit="" xsi:type="PQ" value="NEGATIVE" /> <referenceRange> <observationRange> <text> NEGATIVE</text> </observationRange> </referenceRange> </observation> </component> </organizer> </entry> <entry> < organizer moodCode="EVN" classCode="BATTERY"> <templateId root= "216.840.1.029212.10..22.4.1" /> <id nullFlavor="NA" /> <code codeSystem="local" code="GLUMON" displayName="GLUCOSE (POC)" /> < statusCode code="completed" /> <component> <observation moodCode= "EVN" classCode="OBS"> <templateId root="2.16.840.1.303919.10.20.22.4.2 " /> <id nullFlavor="NA" /> <code codeSystem="local" code= "GLUMON" displayName="GLUCOSE (POC)" /> <statusCode code="completed" / > <effectiveTime value="[id number]" /> <value unit="mg/dL" xsi:type="PQ" value="84" /> <referenceRange> < observationRange> <text>70-99</text> </observationRange > </referenceRange> </observation> </component> </ organizer> </entry> <entry> <organizer moodCode="EVN" classCode="BATTERY"> <templateId root="216.840.1.092598.10..22.4.1" /> <id nullFlavor= "NA" /> <code codeSystem="local" code="PTTH" displayName="PTT HEPARIN PROTOCOLS" /> <statusCode code="completed" /> <component> < observation moodCode="EVN" classCode="OBS"> <templateId root= "2.16.840.1.926296.10.20.22.4.2" /> <id nullFlavor="NA" /> < code codeSystem="local" code="PTT" displayName="PARTIAL THROMBOPLASTIN TIME" /> <statusCode code="completed" /> <effectiveTime value= "038706789007" /> <value unit="sec" xsi:type="PQ" value="105" /> <interpretationCode codeSystem="local" code="*" /> <referenceRange > <observationRange> <text>23-39</text> </ observationRange> </referenceRange> </observation> </ component> </organizer> </entry> <entry> <organizer moodCode="EVN" classCode="BATTERY"> <templateId root="840.1.954456.10..4.1" /> <id nullFlavor="NA" /> <code codeSystem="local" code="GLUMON" displayName="GLUCOSE (POC)" /> <statusCode code="completed" /> < component> <observation moodCode="EVN" classCode="OBS"> < templateId root="840.1.416303.01.28.22.4.2" /> <id nullFlavor="NA " /> <code codeSystem="local" code="GLUMON" displayName="GLUCOSE (POC) " /> <statusCode code="completed" /> <effectiveTime value= "753294540714" /> <value unit="mg/dL" xsi:type="PQ" value="65" /> <interpretationCode codeSystem="local" code="*" /> <referenceRange > <observationRange> <text>70-99</text> </ observationRange> </referenceRange> </observation> </ component> </organizer> </entry> <entry> <organizer moodCode="EVN" classCode="BATTERY"> <templateId root="840.1.671681.01.28.22.4.1" /> <id nullFlavor="NA" /> <code codeSystem="local" code="GLUMON" displayName="GLUCOSE (POC)" /> <statusCode code="completed" /> < component> <observation moodCode="EVN" classCode="OBS"> < templateId root="840.1.124529.01.28.22.4.2" /> <id nullFlavor="NA " /> <code codeSystem="local" code="GLUMON" displayName="GLUCOSE (POC) " /> <statusCode code="completed" /> <effectiveTime value= "556029038328" /> <value unit="mg/dL" xsi:type="PQ" value="96" /> <referenceRange> <observationRange> <text>70-99</ text> </observationRange> </referenceRange> </ observation> </component> </organizer> </entry> <entry> <organizer moodCode="EVN" classCode="BATTERY"> <templateId root= "16.840.1.978738.10..4.1" /> <id nullFlavor="NA" /> <code codeSystem="local" code="GLUMON" displayName="GLUCOSE (POC)" /> < statusCode code="completed" /> <component> <observation moodCode= "EVN" classCode="OBS"> <templateId root="216.840.1.858690.10...4.2 " /> <id nullFlavor="NA" /> <code codeSystem="local" code= "GLUMON" displayName="GLUCOSE (POC)" /> <statusCode code="completed" / > <effectiveTime value="975506117563" /> <value unit="mg/dL" xsi:type="PQ" value="100" /> <interpretationCode codeSystem="local" code="*" /> <referenceRange> <observationRange> <text>70-99</text> </observationRange> </referenceRange> </observation> </component> </organizer> </entry> <entry> < organizer moodCode="EVN" classCode="BATTERY"> <templateId root= "16.840.1.800607.10...4.1" /> <id nullFlavor="NA" /> <code codeSystem="local" code="GLUMON" displayName="GLUCOSE (POC)" /> < statusCode code="completed" /> <component> <observation moodCode= "EVN" classCode="OBS"> <templateId root="216.840.1.727024.10.20.22.4.2 " /> <id nullFlavor="NA" /> <code codeSystem="local" code= "GLUMON" displayName="GLUCOSE (POC)" /> <statusCode code="completed" / > <effectiveTime value="" /> <value unit="mg/dL" xsi:type="PQ" value="86" /> <referenceRange> < observationRange> <text>70-99</text> </observationRange > </referenceRange> </observation> </component> </ organizer> </entry> <entry> <organizer moodCode="EVN" classCode="BATTERY"> <templateId root="216.840.1.731134.10..22.4.1" /> <id nullFlavor= "NA" /> <code codeSystem="local" code="GLUMON" displayName="GLUCOSE (POC)" /> <statusCode code="completed" /> <component> <observation moodCode="EVN" classCode="OBS"> <templateId root= "2.16.840.1.949553.10..22.4.2" /> <id nullFlavor="NA" /> < code codeSystem="local" code="GLUMON" displayName="GLUCOSE (POC)" /> < statusCode code="completed" /> <effectiveTime value="523241660285" /> <value unit="mg/dL" xsi:type="PQ" value="105" /> < interpretationCode codeSystem="local" code="*" /> <referenceRange> <observationRange> <text>70-99</text> </ observationRange> </referenceRange> </observation> </ component> </organizer> </entry> <entry> <organizer moodCode="EVN" classCode="BATTERY"> <templateId root="05.27.840.1.039355.10..4.1" /> <id nullFlavor="NA" /> <code codeSystem="local" code="PTTH" displayName="PTT HEPARIN PROTOCOLS" /> <statusCode code="completed" /> <component> <observation moodCode="EVN" classCode="OBS"> < templateId root="840.1.934098.01.28.22.4.2" /> <id nullFlavor="NA " /> <code codeSystem="local" code="PTT" displayName="PARTIAL THROMBOPLASTIN TIME" /> <statusCode code="completed" /> < effectiveTime value="" /> <value unit="sec" xsi:type="PQ" value="74" /> <interpretationCode codeSystem="local" code="*" /> <referenceRange> <observationRange> <text>23-39</ text> </observationRange> </referenceRange> </ observation> </component> </organizer> </entry> <entry> <organizer moodCode="EVN" classCode="BATTERY"> <templateId root= "840.1.140935.01.28.22.4.1" /> <id nullFlavor="NA" /> <code codeSystem="local" code="GLUMON" displayName="GLUCOSE (POC)" /> < statusCode code="completed" /> <component> <observation moodCode= "EVN" classCode="OBS"> <templateId root="840.1.982745.01.28.22.4.2 " /> <id nullFlavor="NA" /> <code codeSystem="local" code= "GLUMON" displayName="GLUCOSE (POC)" /> <statusCode code="completed" / > <effectiveTime value="249836249763" /> <value unit="mg/dL" xsi:type="PQ" value="101" /> <interpretationCode codeSystem="local" code="*" /> <referenceRange> <observationRange> <text>70-99</text> </observationRange> </referenceRange> </observation> </component> </organizer> </entry> <entry> < organizer moodCode="EVN" classCode="BATTERY"> <templateId root= "216.840.1.505031.10..22.4.1" /> <id nullFlavor="NA" /> <code codeSystem="local" code="PTTH" displayName="PTT HEPARIN PROTOCOLS" /> < statusCode code="completed" /> <component> <observation moodCode= "EVN" classCode="OBS"> <templateId root="216.840.1.397310.10..22.4.2 " /> <id nullFlavor="NA" /> <code codeSystem="local" code="PTT " displayName="PARTIAL THROMBOPLASTIN TIME" /> <statusCode code= "completed" /> <effectiveTime value="315295081096" /> <value unit="sec" xsi:type="PQ" value="80" /> <interpretationCode codeSystem= "local" code="*" /> <referenceRange> <observationRange> <text>23-39</text> </observationRange> </ referenceRange> </observation> </component> </organizer> </entry > <entry> <organizer moodCode="EVN" classCode="BATTERY"> <templateId root="216.840.1.722554.10..22.4.1" /> <id nullFlavor="NA" /> <code codeSystem="local" code="GLUMON" displayName="GLUCOSE (POC)" /> < statusCode code="completed" /> <component> <observation moodCode= "EVN" classCode="OBS"> <templateId root="216.840.1.211100.10..22.4.2 " /> <id nullFlavor="NA" /> <code codeSystem="local" code= "GLUMON" displayName="GLUCOSE (POC)" /> <statusCode code="completed" / > <effectiveTime value="248762108989" /> <value unit="mg/dL" xsi:type="PQ" value="81" /> <referenceRange> < observationRange> <text>70-99</text> </observationRange > </referenceRange> </observation> </component> </ organizer> </entry> <entry> <organizer moodCode="EVN" classCode="BATTERY"> <templateId root="216.840.1.129567.10..22.4.1" /> <id nullFlavor= "NA" /> <code codeSystem="local" code="GLUMON" displayName="GLUCOSE (POC)" /> <statusCode code="completed" /> <component> <observation moodCode="EVN" classCode="OBS"> <templateId root= "216.840.1.957641.10..22.4.2" /> <id nullFlavor="NA" /> < code codeSystem="local" code="GLUMON" displayName="GLUCOSE (POC)" /> < statusCode code="completed" /> <effectiveTime value="191900843563" /> <value unit="mg/dL" xsi:type="PQ" value="92" /> < referenceRange> <observationRange> <text>70-99</text> </observationRange> </referenceRange> </observation> </component> </organizer> </entry> <entry> <organizer moodCode="EVN " classCode="BATTERY"> <templateId root="216.840.1.643776.10..4.1" / > <id nullFlavor="NA" /> <code codeSystem="local" code="GLUMON" displayName="GLUCOSE (POC)" /> <statusCode code="completed" /> < component> <observation moodCode="EVN" classCode="OBS"> < templateId root="05.27.840.1.785988.01.28.22.4.2" /> <id nullFlavor="NA " /> <code codeSystem="local" code="GLUMON" displayName="GLUCOSE (POC) " /> <statusCode code="completed" /> <effectiveTime value= "188450297537" /> <value unit="mg/dL" xsi:type="PQ" value="119" /> <interpretationCode codeSystem="local" code="*" /> < referenceRange> <observationRange> <text>70-99</text> </observationRange> </referenceRange> </observation> </component> </organizer> </entry> <entry> <organizer moodCode="EVN " classCode="BATTERY"> <templateId root="840.1.868118.01.28.22.4.1" / > <id nullFlavor="NA" /> <code codeSystem="local" code="GLUMON" displayName="GLUCOSE (POC)" /> <statusCode code="completed" /> < component> <observation moodCode="EVN" classCode="OBS"> < templateId root="05.27.840.1.038409.10.4.2" /> <id nullFlavor="NA " /> <code codeSystem="local" code="GLUMON" displayName="GLUCOSE (POC) " /> <statusCode code="completed" /> <effectiveTime value= "166468651026" /> <value unit="mg/dL" xsi:type="PQ" value="95" /> <referenceRange> <observationRange> <text>70-99</ text> </observationRange> </referenceRange> </ observation> </component> </organizer> </entry> <entry> <organizer moodCode="EVN" classCode="BATTERY"> <templateId root= "840.1.650937.10..22.4.1" /> <id nullFlavor="NA" /> <code codeSystem="local" code="CBC" displayName="CBC" /> <statusCode code= "completed" /> <component> <observation moodCode="EVN" classCode= "OBS"> <templateId root="05.27.840.1.859254..22.4.2" /> < id nullFlavor="NA" /> <code codeSystem="local" code="MCH" displayName= "MEAN CELL HGB" /> <statusCode code="completed" /> < effectiveTime value="766846573915" /> <value unit="pg" xsi:type="PQ" value="26.8" /> <interpretationCode codeSystem="local" code="*" /> <referenceRange> <observationRange> <text>27.0- 33.0</text> </observationRange> </referenceRange> </ observation> </component> <component> <observation moodCode= "EVN" classCode="OBS"> <templateId root="840.1.658061.102022.4.2 " /> <id nullFlavor="NA" /> <code codeSystem="local" code= "[facility]" displayName="MEAN CELL HGB CONCENTRATION" /> <statusCode code= "completed" /> <effectiveTime value="548427341854" /> <value unit="g/dL" xsi:type="PQ" value="32.3" /> <referenceRange> < observationRange> <text>32.0-37.0</text> </ observationRange> </referenceRange> </observation> </ component> <component> <observation moodCode="EVN" classCode="OBS"> <templateId root="16.840.1.256907.1022.4.2" /> <id nullFlavor="NA" /> <code codeSystem="local" code="MCV" displayName= "MEAN CELL VOLUME" /> <statusCode code="completed" /> < effectiveTime value="" /> <value unit="fl" xsi:type="PQ" value="83.0" /> <referenceRange> <observationRange> <text>80.0-100.0</text> </observationRange> </ referenceRange> </observation> </component> <component> <observation moodCode="EVN" classCode="OBS"> <templateId root= "05.27.840.1.829613.01.28.22.4.2" /> <id nullFlavor="NA" /> < code codeSystem="local" code="RBC" displayName="RED BLOOD CELL" /> < statusCode code="completed" /> <effectiveTime value="" /> <value unit="m/cumm" xsi:type="PQ" value="2.76" /> < interpretationCode codeSystem="local" code="*" /> <referenceRange> <observationRange> <text>4.00-6.00</text> </ observationRange> </referenceRange> </observation> </ component> <component> <observation moodCode="EVN" classCode="OBS"> <templateId root="05.27.840.1.509340.01.28.22.4.2" /> <id nullFlavor="NA" /> <code codeSystem="local" code="RDW" displayName=" RED CELL DISTRIBUTION WIDTH" /> <statusCode code="completed" /> <effectiveTime value="" /> <value unit="%" xsi:type= "PQ" value="15.2" /> <referenceRange> <observationRange> <text>11.0-15.6</text> </observationRange> </ referenceRange> </observation> </component> <component> <observation moodCode="EVN" classCode="OBS"> <templateId root= "05.27.840.1.000305.01.28.22.4.2" /> <id nullFlavor="NA" /> < code codeSystem="local" code="WBC" displayName="WHITE BLOOD CELL" /> < statusCode code="completed" /> <effectiveTime value="" /> <value unit="k/cumm" xsi:type="PQ" value="9.6" /> < referenceRange> <observationRange> <text>5.0-10.0</text > </observationRange> </referenceRange> </observation > </component> <component> <observation moodCode="EVN" classCode="OBS"> <templateId root="216.840.1.064552.01.28.22.4.2" /> <id nullFlavor="NA" /> <code codeSystem="local" code="HGBT" displayName="HEMOGLOBIN" /> <statusCode code="completed" /> < effectiveTime value="" /> <value unit="gm/dL" xsi:type="PQ " value="7.4" /> <interpretationCode codeSystem="local" code="*" /> <referenceRange> <observationRange> <text>12.0- 16.0</text> </observationRange> </referenceRange> </ observation> </component> <component> <observation moodCode= "EVN" classCode="OBS"> <templateId root="840.1.578647.10.20.22.4.2 " /> <id nullFlavor="NA" /> <code codeSystem="local" code= "HCTT" displayName="HEMATOCRIT" /> <statusCode code="completed" /> <effectiveTime value="917950175352" /> <value unit="%" xsi: type="PQ" value="22.9" /> <interpretationCode codeSystem="local" code= "*" /> <referenceRange> <observationRange> < text>37.0-47.0</text> </observationRange> </referenceRange> </observation> </component> <component> <observation moodCode="EVN" classCode="OBS"> <templateId root= "840.1.363726.1022.4.2" /> <id nullFlavor="NA" /> < code codeSystem="local" code="PLT" displayName="PLATELET COUNT" /> < statusCode code="completed" /> <effectiveTime value="391608597522" /> <value unit="k/cumm" xsi:type="PQ" value="257" /> < referenceRange> <observationRange> <text>150-400</text> </observationRange> </referenceRange> </observation > </component> </organizer> </entry> <entry> <organizer moodCode= "EVN" classCode="BATTERY"> <templateId root="840.1.675485.10.20.22.4.1 " /> <id nullFlavor="NA" /> <code codeSystem="local" code="PTTH" displayName="PTT HEPARIN PROTOCOLS" /> <statusCode code="completed" /> <component> <observation moodCode="EVN" classCode="OBS"> < templateId root="840.1.747290.10.20.4.2" /> <id nullFlavor="NA " /> <code codeSystem="local" code="PTT" displayName="PARTIAL THROMBOPLASTIN TIME" /> <statusCode code="completed" /> < effectiveTime value="137819945925" /> <value unit="sec" xsi:type="PQ" value="74" /> <interpretationCode codeSystem="local" code="*" /> <referenceRange> <observationRange> <text>23-39</ text> </observationRange> </referenceRange> </ observation> </component> </organizer> </entry> <entry> <organizer moodCode="EVN" classCode="BATTERY"> <templateId root= "2.16.840.1.460375.10..22.4.1" /> <id nullFlavor="NA" /> <code codeSystem="local" code="GLUMON" displayName="GLUCOSE (POC)" /> < statusCode code="completed" /> <component> <observation moodCode= "EVN" classCode="OBS"> <templateId root="2.16.840.1.620256.10..22.4.2 " /> <id nullFlavor="NA" /> <code codeSystem="local" code= "GLUMON" displayName="GLUCOSE (POC)" /> <statusCode code="completed" / > <effectiveTime value="346649895998" /> <value unit="mg/dL" xsi:type="PQ" value="120" /> <interpretationCode codeSystem="local" code="*" /> <referenceRange> <observationRange> <text>70-99</text> </observationRange> </referenceRange> </observation> </component> </organizer> </entry> <entry> < organizer moodCode="EVN" classCode="BATTERY"> <templateId root= "216.840.1.671763.01.28.22.4.1" /> <id nullFlavor="NA" /> <code codeSystem="local" code="PTTH" displayName="PTT HEPARIN PROTOCOLS" /> < statusCode code="completed" /> <component> <observation moodCode= "EVN" classCode="OBS"> <templateId root="05.27.840.1.317209.10..4.2 " /> <id nullFlavor="NA" /> <code codeSystem="local" code="PTT " displayName="PARTIAL THROMBOPLASTIN TIME" /> <statusCode code= "completed" /> <effectiveTime value="756120219230" /> <value unit="sec" xsi:type="PQ" value="135" /> <interpretationCode codeSystem= "local" code="" /> <referenceRange> <observationRange> <text>23-39</text> </observationRange> </ referenceRange> </observation> </component> </organizer> </entry > <entry> <organizer moodCode="EVN" classCode="BATTERY"> <templateId root="840.1.432048.01.28.22.4.1" /> <id nullFlavor="NA" /> <code codeSystem="local" code="GLUMON" displayName="GLUCOSE (POC)" /> < statusCode code="completed" /> <component> <observation moodCode= "EVN" classCode="OBS"> <templateId root="05.27.840.1.083541.10.22.4.2 " /> <id nullFlavor="NA" /> <code codeSystem="local" code= "GLUMON" displayName="GLUCOSE (POC)" /> <statusCode code="completed" / > <effectiveTime value="323203216147" /> <value unit="mg/dL" xsi:type="PQ" value="90" /> <referenceRange> < observationRange> <text>70-99</text> </observationRange > </referenceRange> </observation> </component> </ organizer> </entry> <entry> <organizer moodCode="EVN" classCode="BATTERY"> <templateId root="16.840.1.757153.10..22.4.1" /> <id nullFlavor= "NA" /> <code codeSystem="local" code="PTTH" displayName="PTT HEPARIN PROTOCOLS" /> <statusCode code="completed" /> <component> < observation moodCode="EVN" classCode="OBS"> <templateId root= "05.27.840.1.607162.10...4.2" /> <id nullFlavor="NA" /> < code codeSystem="local" code="PTT" displayName="PARTIAL THROMBOPLASTIN TIME" /> <statusCode code="completed" /> <effectiveTime value= "092352725889" /> <value unit="sec" xsi:type="PQ" value="45" /> <interpretationCode codeSystem="local" code="*" /> <referenceRange> <observationRange> <text>23-39</text> </ observationRange> </referenceRange> </observation> </ component> </organizer> </entry> <entry> <organizer moodCode="EVN" classCode="BATTERY"> <templateId root="05.27.840.1.043849.10...4.1" /> <id nullFlavor="NA" /> <code codeSystem="local" code="GLUMON" displayName="GLUCOSE (POC)" /> <statusCode code="completed" /> < component> <observation moodCode="EVN" classCode="OBS"> < templateId root="05.27.840.1.965119.10...4.2" /> <id nullFlavor="NA " /> <code codeSystem="local" code="GLUMON" displayName="GLUCOSE (POC) " /> <statusCode code="completed" /> <effectiveTime value= "394700179480" /> <value unit="mg/dL" xsi:type="PQ" value="100" /> <interpretationCode codeSystem="local" code="*" /> < referenceRange> <observationRange> <text>70-99</text> </observationRange> </referenceRange> </observation> </component> </organizer> </entry> <entry> <organizer moodCode="EVN " classCode="BATTERY"> <templateId root="216.840.1.740488.10..22.4.1" / > <id nullFlavor="NA" /> <code codeSystem="local" code="PTTH" displayName="PTT HEPARIN PROTOCOLS" /> <statusCode code="completed" /> <component> <observation moodCode="EVN" classCode="OBS"> < templateId root="216.840.1.267923.10..22.4.2" /> <id nullFlavor="NA " /> <code codeSystem="local" code="PTT" displayName="PARTIAL THROMBOPLASTIN TIME" /> <statusCode code="completed" /> < effectiveTime value="143813639016" /> <value unit="sec" xsi:type="PQ" value="95" /> <interpretationCode codeSystem="local" code="*" /> <referenceRange> <observationRange> <text>23-39</ text> </observationRange> </referenceRange> </ observation> </component> </organizer> </entry> <entry> <organizer moodCode="EVN" classCode="BATTERY"> <templateId root= "216.840.1.573548.01.28.22.4.1" /> <id nullFlavor="NA" /> <code codeSystem="local" code="GLUMON" displayName="GLUCOSE (POC)" /> < statusCode code="completed" /> <component> <observation moodCode= "EVN" classCode="OBS"> <templateId root="05.27.840.1.396231.01.28.22.4.2 " /> <id nullFlavor="NA" /> <code codeSystem="local" code= "GLUMON" displayName="GLUCOSE (POC)" /> <statusCode code="completed" / > <effectiveTime value="504946521530" /> <value unit="mg/dL" xsi:type="PQ" value="97" /> <referenceRange> < observationRange> <text>70-99</text> </observationRange > </referenceRange> </observation> </component> </ organizer> </entry> <entry> <organizer moodCode="EVN" classCode="BATTERY"> <templateId root="05.27.840.1.553772.01.28.22.4.1" /> <id nullFlavor= "NA" /> <code codeSystem="local" code="GLUMON" displayName="GLUCOSE (POC)" /> <statusCode code="completed" /> <component> <observation moodCode="EVN" classCode="OBS"> <templateId root= "05.27.840.1.251536.10.4.2" /> <id nullFlavor="NA" /> < code codeSystem="local" code="GLUMON" displayName="GLUCOSE (POC)" /> < statusCode code="completed" /> <effectiveTime value="368441409113" /> <value unit="mg/dL" xsi:type="PQ" value="79" /> < referenceRange> <observationRange> <text>70-99</text> </observationRange> </referenceRange> </observation> </component> </organizer> </entry> <entry> <organizer moodCode="EVN " classCode="BATTERY"> <templateId root="05.27.840.1.378915.10...4.1" / > <id nullFlavor="NA" /> <code codeSystem="local" code="GLUMON" displayName="GLUCOSE (POC)" /> <statusCode code="completed" /> < component> <observation moodCode="EVN" classCode="OBS"> < templateId root="840.1.363910.01.28.22.4.2" /> <id nullFlavor="NA " /> <code codeSystem="local" code="GLUMON" displayName="GLUCOSE (POC) " /> <statusCode code="completed" /> <effectiveTime value= "863130221065" /> <value unit="mg/dL" xsi:type="PQ" value="79" /> <referenceRange> <observationRange> <text>70-99</ text> </observationRange> </referenceRange> </ observation> </component> </organizer> </entry> <entry> <organizer moodCode="EVN" classCode="BATTERY"> <templateId root= "840.1.396807.01.28.22.4.1" /> <id nullFlavor="NA" /> <code codeSystem="local" code="GLUMON" displayName="GLUCOSE (POC)" /> < statusCode code="completed" /> <component> <observation moodCode= "EVN" classCode="OBS"> <templateId root="05.27.840.1.430885.10..22.4.2 " /> <id nullFlavor="NA" /> <code codeSystem="local" code= "GLUMON" displayName="GLUCOSE (POC)" /> <statusCode code="completed" / > <effectiveTime value="696983330105" /> <value unit="mg/dL" xsi:type="PQ" value="111" /> <interpretationCode codeSystem="local" code="*" /> <referenceRange> <observationRange> <text>70-99</text> </observationRange> </referenceRange> </observation> </component> </organizer> </entry> <entry> < organizer moodCode="EVN" classCode="BATTERY"> <templateId root= "216.840.1.799691.10..22.4.1" /> <id nullFlavor="NA" /> <code codeSystem="local" code="GLUMON" displayName="GLUCOSE (POC)" /> < statusCode code="completed" /> <component> <observation moodCode= "EVN" classCode="OBS"> <templateId root="16.840.1.104088.10.20.22.4.2 " /> <id nullFlavor="NA" /> <code codeSystem="local" code= "GLUMON" displayName="GLUCOSE (POC)" /> <statusCode code="completed" / > <effectiveTime value="991262105377" /> <value unit="mg/dL" xsi:type="PQ" value="128" /> <interpretationCode codeSystem="local" code="*" /> <referenceRange> <observationRange> <text>70-99</text> </observationRange> </referenceRange> </observation> </component> </organizer> </entry> <entry> < organizer moodCode="EVN" classCode="BATTERY"> <templateId root= "05.27.840.1.713968.10.20.22.4.1" /> <id nullFlavor="NA" /> <code codeSystem="local" code="PTTH" displayName="PTT HEPARIN PROTOCOLS" /> < statusCode code="completed" /> <component> <observation moodCode= "EVN" classCode="OBS"> <templateId root="05.27.840.1.924053.10.4.2 " /> <id nullFlavor="NA" /> <code codeSystem="local" code="PTT " displayName="PARTIAL THROMBOPLASTIN TIME" /> <statusCode code= "completed" /> <effectiveTime value="001424314217" /> <value unit="sec" xsi:type="PQ" value="78" /> <interpretationCode codeSystem= "local" code="*" /> <referenceRange> <observationRange> <text>23-39</text> </observationRange> </ referenceRange> </observation> </component> </organizer> </entry > <entry> <organizer moodCode="EVN" classCode="BATTERY"> <templateId root="05.27.840.1.816428.22.4.1" /> <id nullFlavor="NA" /> <code codeSystem="local" code="CBC" displayName="CBC" /> <statusCode code= "completed" /> <component> <observation moodCode="EVN" classCode= "OBS"> <templateId root="05.27.840.1.454746.10.4.2" /> < id nullFlavor="NA" /> <code codeSystem="local" code="MCH" displayName= "MEAN CELL HGB" /> <statusCode code="completed" /> < effectiveTime value="723270265289" /> <value unit="pg" xsi:type="PQ" value="26.0" /> <interpretationCode codeSystem="local" code="*" /> <referenceRange> <observationRange> <text>27.0- 33.0</text> </observationRange> </referenceRange> </ observation> </component> <component> <observation moodCode= "EVN" classCode="OBS"> <templateId root="[id number] " /> <id nullFlavor="NA" /> <code codeSystem="local" code= "MCHC" displayName="MEAN CELL HGB CONCENTRATION" /> <statusCode code= "completed" /> <effectiveTime value="[id number]" /> <value unit="g/dL" xsi:type="PQ" value="31.3" /> <interpretationCode codeSystem="local" code="*" /> <referenceRange> < observationRange> <text>32.0-37.0</text> </ observationRange> </referenceRange> </observation> </ component> <component> <observation moodCode="EVN" classCode="OBS"> <templateId root="16.840.1.088482.104.2" /> <id nullFlavor="NA" /> <code codeSystem="local" code="MCV" displayName= "MEAN CELL VOLUME" /> <statusCode code="completed" /> < effectiveTime value="322368733992" /> <value unit="fl" xsi:type="PQ" value="83.2" /> <referenceRange> <observationRange> <text>80.0-100.0</text> </observationRange> </ referenceRange> </observation> </component> <component> <observation moodCode="EVN" classCode="OBS"> <templateId root= "216.840.1.645033.10..4.2" /> <id nullFlavor="NA" /> < code codeSystem="local" code="RBC" displayName="RED BLOOD CELL" /> < statusCode code="completed" /> <effectiveTime value="" /> <value unit="m/cumm" xsi:type="PQ" value="2.50" /> < interpretationCode codeSystem="local" code="*" /> <referenceRange> <observationRange> <text>4.00-6.00</text> </ observationRange> </referenceRange> </observation> </ component> <component> <observation moodCode="EVN" classCode="OBS"> <templateId root="2.16.840.1.789453.10..22.4.2" /> <id nullFlavor="NA" /> <code codeSystem="local" code="RDW" displayName=" RED CELL DISTRIBUTION WIDTH" /> <statusCode code="completed" /> <effectiveTime value="" /> <value unit="%" xsi:type= "PQ" value="15.0" /> <referenceRange> <observationRange> <text>11.0-15.6</text> </observationRange> </ referenceRange> </observation> </component> <component> <observation moodCode="EVN" classCode="OBS"> <templateId root= "216.840.1.803318.10.20.22.4.2" /> <id nullFlavor="NA" /> < code codeSystem="local" code="WBC" displayName="WHITE BLOOD CELL" /> < statusCode code="completed" /> <effectiveTime value="" /> <value unit="k/cumm" xsi:type="PQ" value="7.3" /> < referenceRange> <observationRange> <text>5.0-10.0</text > </observationRange> </referenceRange> </observation > </component> <component> <observation moodCode="EVN" classCode="OBS"> <templateId root="216.840.1.953736.10.20.22.4.2" /> <id nullFlavor="NA" /> <code codeSystem="local" code="HGBT" displayName="HEMOGLOBIN" /> <statusCode code="completed" /> < effectiveTime value="599735499149" /> <value unit="gm/dL" xsi:type="PQ " value="6.5" /> <interpretationCode codeSystem="local" code="*" /> <referenceRange> <observationRange> <text>12.0- 16.0</text> </observationRange> </referenceRange> </ observation> </component> <component> <observation moodCode= "EVN" classCode="OBS"> <templateId root="05.27.840.1.044894.1022.4.2 " /> <id nullFlavor="NA" /> <code codeSystem="local" code= "HCTT" displayName="HEMATOCRIT" /> <statusCode code="completed" /> <effectiveTime value="" /> <value unit="%" xsi: type="PQ" value="20.8" /> <interpretationCode codeSystem="local" code= "*" /> <referenceRange> <observationRange> < text>37.0-47.0</text> </observationRange> </referenceRange> </observation> </component> <component> <observation moodCode="EVN" classCode="OBS"> <templateId root= "05.27.840.1.075890.10.2022.4.2" /> <id nullFlavor="NA" /> < code codeSystem="local" code="PLT" displayName="PLATELET COUNT" /> < statusCode code="completed" /> <effectiveTime value="841773679181" /> <value unit="k/cumm" xsi:type="PQ" value="287" /> < referenceRange> <observationRange> <text>150-400</text> </observationRange> </referenceRange> </observation > </component> </organizer> </entry> <entry> <organizer moodCode= "EVN" classCode="BATTERY"> <templateId root="05.27.840.1.542020.10..22.4.1 " /> <id nullFlavor="NA" /> <code codeSystem="local" code="PTTH" displayName="PTT HEPARIN PROTOCOLS" /> <statusCode code="completed" /> <component> <observation moodCode="EVN" classCode="OBS"> < templateId root="840.1.907494...4.2" /> <id nullFlavor="NA " /> <code codeSystem="local" code="PTT" displayName="PARTIAL THROMBOPLASTIN TIME" /> <statusCode code="completed" /> < effectiveTime value="571799699616" /> <value unit="sec" xsi:type="PQ" value="83" /> <interpretationCode codeSystem="local" code="*" /> <referenceRange> <observationRange> <text>23-39</ text> </observationRange> </referenceRange> </ observation> </component> </organizer> </entry> <entry> <organizer moodCode="EVN" classCode="BATTERY"> <templateId root= "05.27.840.1.471353.10...4.1" /> <id nullFlavor="NA" /> <code codeSystem="local" code="METAB" displayName="METABOLIC PANEL, BASIC" /> < statusCode code="completed" /> <component> <observation moodCode= "EVN" classCode="OBS"> <templateId root="05.27.840.1.939032.10...4.2 " /> <id nullFlavor="NA" /> <code codeSystem="local" code="K" displayName="POTASSIUM" /> <statusCode code="completed" /> < effectiveTime value="246004759397" /> <value unit="mmol/L" xsi:type="PQ " value="3.5" /> <referenceRange> <observationRange> <text>3.5-5.3</text> </observationRange> </ referenceRange> </observation> </component> <component> <observation moodCode="EVN" classCode="OBS"> <templateId root= "2.16.840.1.733077.10..22.4.2" /> <id nullFlavor="NA" /> < code codeSystem="local" code="eGFR" displayName="EST GFR (MDRD)" /> < statusCode code="completed" /> <effectiveTime value="886998034228" /> <value unit="mL/min" xsi:type="PQ" value="> 60" /> < referenceRange> <observationRange> <text>> 59</text> </observationRange> </referenceRange> </observation > </component> <component> <observation moodCode="EVN" classCode="OBS"> <templateId root="2.16.840.1.710369.10..22.4.2" /> <id nullFlavor="NA" /> <code codeSystem="local" code="GAP" displayName="ANION GAP" /> <statusCode code="completed" /> < effectiveTime value="061278325604" /> <value unit="mmol/L" xsi:type="PQ " value="8" /> <referenceRange> <observationRange> <text>5-15</text> </observationRange> </referenceRange > </observation> </component> <component> <observation moodCode="EVN" classCode="OBS"> <templateId root= "16.840.1.075491.10..22.4.2" /> <id nullFlavor="NA" /> < code codeSystem="local" code="eCrCl" displayName="EST CrCl (CG)" /> < statusCode code="completed" /> <effectiveTime value="" /> <value unit="mL/min" xsi:type="PQ" value="> 60" /> < referenceRange> <observationRange> <text>> 59</text> </observationRange> </referenceRange> </observation > </component> <component> <observation moodCode="EVN" classCode="OBS"> <templateId root="05.27.840.1.211349.10.22.4.2" /> <id nullFlavor="NA" /> <code codeSystem="local" code="GLU" displayName="GLUCOSE" /> <statusCode code="completed" /> < effectiveTime value="" /> <value unit="mg/dL" xsi:type="PQ " value="101" /> <interpretationCode codeSystem="local" code="*" /> <referenceRange> <observationRange> <text>70-99</ text> </observationRange> </referenceRange> </ observation> </component> <component> <observation moodCode= "EVN" classCode="OBS"> <templateId root="05.27.840.1.888654.10.2022.4.2 " /> <id nullFlavor="NA" /> <code codeSystem="local" code="CA " displayName="CALCIUM" /> <statusCode code="completed" /> < effectiveTime value="" /> <value unit="mg/dL" xsi:type="PQ " value="7.8" /> <interpretationCode codeSystem="local" code="*" /> <referenceRange> <observationRange> <text>8.5- 10.1</text> </observationRange> </referenceRange> </ observation> </component> <component> <observation moodCode= "EVN" classCode="OBS"> <templateId root="05.27.840.1.479210.10..22.4.2 " /> <id nullFlavor="NA" /> <code codeSystem="local" code="BUN " displayName="BLOOD UREA NITROGEN" /> <statusCode code="completed" /> <effectiveTime value="052242603671" /> <value unit="mg/dL" xsi:type="PQ" value="4" /> <interpretationCode codeSystem="local" code= "*" /> <referenceRange> <observationRange> < text>7-20</text> </observationRange> </referenceRange> </observation> </component> <component> <observation moodCode="EVN" classCode="OBS"> <templateId root= "05.27.840.1.107464.10..4.2" /> <id nullFlavor="NA" /> < code codeSystem="local" code="CREAT" displayName="CREATININE" /> < statusCode code="completed" /> <effectiveTime value="960194448205" /> <value unit="mg/dL" xsi:type="PQ" value="0.4" /> < interpretationCode codeSystem="local" code="*" /> <referenceRange> <observationRange> <text>0.6-1.0</text> </ observationRange> </referenceRange> </observation> </ component> <component> <observation moodCode="EVN" classCode="OBS"> <templateId root="05.27.840.1.916792.10.20.22.4.2" /> <id nullFlavor="NA" /> <code codeSystem="local" code="NA" displayName= "SODIUM" /> <statusCode code="completed" /> <effectiveTime value="" /> <value unit="mmol/L" xsi:type="PQ" value="137" /> <referenceRange> <observationRange> <text> 135-148</text> </observationRange> </referenceRange> </observation> </component> <component> <observation moodCode= "EVN" classCode="OBS"> <templateId root="216.840.1.818955.10.20.22.4.2 " /> <id nullFlavor="NA" /> <code codeSystem="local" code="CL " displayName="CHLORIDE" /> <statusCode code="completed" /> < effectiveTime value="851980828021" /> <value unit="mmol/L" xsi:type="PQ " value="104" /> <referenceRange> <observationRange> <text>98-110</text> </observationRange> </ referenceRange> </observation> </component> <component> <observation moodCode="EVN" classCode="OBS"> <templateId root= "216.840.1.809069.10.20.22.4.2" /> <id nullFlavor="NA" /> < code codeSystem="local" code="CO2" displayName="CARBON DIOXIDE" /> < statusCode code="completed" /> <effectiveTime value="200122058363" /> <value unit="mmol/L" xsi:type="PQ" value="25" /> < referenceRange> <observationRange> <text>21-32</text> </observationRange> </referenceRange> </observation> </component> </organizer> </entry> <entry> <organizer moodCode="EVN " classCode="BATTERY"> <templateId root="05.27.840.1.385059.10..22.4.1" / > <id nullFlavor="NA" /> <code codeSystem="local" code="GLUMON" displayName="GLUCOSE (POC)" /> <statusCode code="completed" /> < component> <observation moodCode="EVN" classCode="OBS"> < templateId root="840.1.017277.01.28.22.4.2" /> <id nullFlavor="NA " /> <code codeSystem="local" code="GLUMON" displayName="GLUCOSE (POC) " /> <statusCode code="completed" /> <effectiveTime value= "166023343159" /> <value unit="mg/dL" xsi:type="PQ" value="92" /> <referenceRange> <observationRange> <text>70-99</ text> </observationRange> </referenceRange> </ observation> </component> </organizer> </entry> <entry> <organizer moodCode="EVN" classCode="BATTERY"> <templateId root= "840.1.522833.01.28.22.4.1" /> <id nullFlavor="NA" /> <code codeSystem="local" code="GLUMON" displayName="GLUCOSE (POC)" /> < statusCode code="completed" /> <component> <observation moodCode= "EVN" classCode="OBS"> <templateId root="840.1.160156.10..4.2 " /> <id nullFlavor="NA" /> <code codeSystem="local" code= "GLUMON" displayName="GLUCOSE (POC)" /> <statusCode code="completed" / > <effectiveTime value="151030789371" /> <value unit="mg/dL" xsi:type="PQ" value="120" /> <interpretationCode codeSystem="local" code="*" /> <referenceRange> <observationRange> <text>70-99</text> </observationRange> </referenceRange> </observation> </component> </organizer> </entry> <entry> < organizer moodCode="EVN" classCode="BATTERY"> <templateId root= "216.840.1.891299.10..22.4.1" /> <id nullFlavor="NA" /> <code codeSystem="local" code="VANCT" displayName="VANCOMYCIN TROUGH" /> < statusCode code="completed" /> <component> <observation moodCode= "EVN" classCode="OBS"> <templateId root="05.27.840.1.572203.10..4.2 " /> <id nullFlavor="NA" /> <code codeSystem="local" code= "VANCT" displayName="VANCOMYCIN TROUGH" /> <statusCode code="completed " /> <effectiveTime value="691569261126" /> <value unit="mcg/ mL" xsi:type="PQ" value="9.3" /> <referenceRange> < observationRange> <text>5.0-20.0</text> </ observationRange> </referenceRange> </observation> </ component> </organizer> </entry> <entry> <organizer moodCode="EVN" classCode="BATTERY"> <templateId root="16.840.1.018986.10.22.4.1" /> <id nullFlavor="NA" /> <code codeSystem="local" code="GLUMON" displayName="GLUCOSE (POC)" /> <statusCode code="completed" /> < component> <observation moodCode="EVN" classCode="OBS"> < templateId root="16.840.1.407914.10.22.4.2" /> <id nullFlavor="NA " /> <code codeSystem="local" code="GLUMON" displayName="GLUCOSE (POC) " /> <statusCode code="completed" /> <effectiveTime value= "425748747056" /> <value unit="mg/dL" xsi:type="PQ" value="93" /> <referenceRange> <observationRange> <text>70-99</ text> </observationRange> </referenceRange> </ observation> </component> </organizer> </entry> <entry> <organizer moodCode="EVN" classCode="BATTERY"> <templateId root= "216.840.1.530804.10..4.1" /> <id nullFlavor="NA" /> <code codeSystem="local" code="GLUMON" displayName="GLUCOSE (POC)" /> < statusCode code="completed" /> <component> <observation moodCode= "EVN" classCode="OBS"> <templateId root="216.840.1.173115.10..22.4.2 " /> <id nullFlavor="NA" /> <code codeSystem="local" code= "GLUMON" displayName="GLUCOSE (POC)" /> <statusCode code="completed" / > <effectiveTime value="051408806752" /> <value unit="mg/dL" xsi:type="PQ" value="120" /> <interpretationCode codeSystem="local" code="*" /> <referenceRange> <observationRange> <text>70-99</text> </observationRange> </referenceRange> </observation> </component> </organizer> </entry> <entry> < organizer moodCode="EVN" classCode="BATTERY"> <templateId root= "216.840.1.586826.10..4.1" /> <id nullFlavor="NA" /> <code codeSystem="local" code="CBC" displayName="CBC" /> <statusCode code= "completed" /> <component> <observation moodCode="EVN" classCode= "OBS"> <templateId root="05.27.840.1.185815.10.20.22.4.2" /> < id nullFlavor="NA" /> <code codeSystem="local" code="MCH" displayName= "MEAN CELL HGB" /> <statusCode code="completed" /> < effectiveTime value="830387415126" /> <value unit="pg" xsi:type="PQ" value="26.8" /> <interpretationCode codeSystem="local" code="*" /> <referenceRange> <observationRange> <text>27.0- 33.0</text> </observationRange> </referenceRange> </ observation> </component> <component> <observation moodCode= "EVN" classCode="OBS"> <templateId root="840.1.585027.10.22.4.2 " /> <id nullFlavor="NA" /> <code codeSystem="local" code= "MCHC" displayName="MEAN CELL HGB CONCENTRATION" /> <statusCode code= "completed" /> <effectiveTime value="719373133374" /> <value unit="g/dL" xsi:type="PQ" value="32.3" /> <referenceRange> < observationRange> <text>32.0-37.0</text> </ observationRange> </referenceRange> </observation> </ component> <component> <observation moodCode="EVN" classCode="OBS"> <templateId root="05.27.840.1.220720.10.20.22.4.2" /> <id nullFlavor="NA" /> <code codeSystem="local" code="MCV" displayName= "MEAN CELL VOLUME" /> <statusCode code="completed" /> < effectiveTime value="259131642233" /> <value unit="fl" xsi:type="PQ" value="83.1" /> <referenceRange> <observationRange> <text>80.0-100.0</text> </observationRange> </ referenceRange> </observation> </component> <component> <observation moodCode="EVN" classCode="OBS"> <templateId root= "216.840.1.672879.10.20.22.4.2" /> <id nullFlavor="NA" /> < code codeSystem="local" code="RBC" displayName="RED BLOOD CELL" /> < statusCode code="completed" /> <effectiveTime value="145394294660" /> <value unit="m/cumm" xsi:type="PQ" value="2.72" /> < interpretationCode codeSystem="local" code="*" /> <referenceRange> <observationRange> <text>4.00-6.00</text> </ observationRange> </referenceRange> </observation> </ component> <component> <observation moodCode="EVN" classCode="OBS"> <templateId root="216.840.1.775257.10.20.22.4.2" /> <id nullFlavor="NA" /> <code codeSystem="local" code="RDW" displayName=" RED CELL DISTRIBUTION WIDTH" /> <statusCode code="completed" /> <effectiveTime value="286484128879" /> <value unit="%" xsi:type= "PQ" value="15.1" /> <referenceRange> <observationRange> <text>11.0-15.6</text> </observationRange> </ referenceRange> </observation> </component> <component> <observation moodCode="EVN" classCode="OBS"> <templateId root= "16.840.1.982881.10.20.22.4.2" /> <id nullFlavor="NA" /> < code codeSystem="local" code="WBC" displayName="WHITE BLOOD CELL" /> < statusCode code="completed" /> <effectiveTime value="260921476766" /> <value unit="k/cumm" xsi:type="PQ" value="7.1" /> < referenceRange> <observationRange> <text>5.0-10.0</text > </observationRange> </referenceRange> </observation > </component> <component> <observation moodCode="EVN" classCode="OBS"> <templateId root="05.27.840.1.853443.10.2022.4.2" /> <id nullFlavor="NA" /> <code codeSystem="local" code="HGBT" displayName="HEMOGLOBIN" /> <statusCode code="completed" /> < effectiveTime value="712316638299" /> <value unit="gm/dL" xsi:type="PQ " value="7.3" /> <interpretationCode codeSystem="local" code="*" /> <referenceRange> <observationRange> <text>12.0- 16.0</text> </observationRange> </referenceRange> </ observation> </component> <component> <observation moodCode= "EVN" classCode="OBS"> <templateId root="05.27.840.1.360895.10.20.22.4.2 " /> <id nullFlavor="NA" /> <code codeSystem="local" code= "HCTT" displayName="HEMATOCRIT" /> <statusCode code="completed" /> <effectiveTime value="678411811103" /> <value unit="%" xsi: type="PQ" value="22.6" /> <interpretationCode codeSystem="local" code= "*" /> <referenceRange> <observationRange> < text>37.0-47.0</text> </observationRange> </referenceRange> </observation> </component> <component> <observation moodCode="EVN" classCode="OBS"> <templateId root= "16.840.1.124981.10..22.4.2" /> <id nullFlavor="NA" /> < code codeSystem="local" code="PLT" displayName="PLATELET COUNT" /> < statusCode code="completed" /> <effectiveTime value="538168011738" /> <value unit="k/cumm" xsi:type="PQ" value="320" /> < referenceRange> <observationRange> <text>150-400</text> </observationRange> </referenceRange> </observation > </component> </organizer> </entry> <entry> <organizer moodCode= "EVN" classCode="BATTERY"> <templateId root="05.27.840.1.736665.10..22.4.1 " /> <id nullFlavor="NA" /> <code codeSystem="local" code="PTTH" displayName="PTT HEPARIN PROTOCOLS" /> <statusCode code="completed" /> <component> <observation moodCode="EVN" classCode="OBS"> < templateId root="05.27.840.1.187355.10..22.4.2" /> <id nullFlavor="NA " /> <code codeSystem="local" code="PTT" displayName="PARTIAL THROMBOPLASTIN TIME" /> <statusCode code="completed" /> < effectiveTime value="974815031767" /> <value unit="sec" xsi:type="PQ" value="102" /> <interpretationCode codeSystem="local" code="*" /> <referenceRange> <observationRange> <text>23-39</ text> </observationRange> </referenceRange> </ observation> </component> </organizer> </entry> <entry> <organizer moodCode="EVN" classCode="BATTERY"> <templateId root= "16.840.1.784006.10..22.4.1" /> <id nullFlavor="NA" /> <code codeSystem="local" code="GLUMON" displayName="GLUCOSE (POC)" /> < statusCode code="completed" /> <component> <observation moodCode= "EVN" classCode="OBS"> <templateId root="05.27.840.1.119368.10..4.2 " /> <id nullFlavor="NA" /> <code codeSystem="local" code= "GLUMON" displayName="GLUCOSE (POC)" /> <statusCode code="completed" / > <effectiveTime value="766206912467" /> <value unit="mg/dL" xsi:type="PQ" value="106" /> <interpretationCode codeSystem="local" code="*" /> <referenceRange> <observationRange> <text>70-99</text> </observationRange> </referenceRange> </observation> </component> </organizer> </entry> <entry> < organizer moodCode="EVN" classCode="BATTERY"> <templateId root= "05.27.840.1.859766.10..22.4.1" /> <id nullFlavor="NA" /> <code codeSystem="local" code="GLUMON" displayName="GLUCOSE (POC)" /> < statusCode code="completed" /> <component> <observation moodCode= "EVN" classCode="OBS"> <templateId root="05.27.840.1.309715.10..22.4.2 " /> <id nullFlavor="NA" /> <code codeSystem="local" code= "GLUMON" displayName="GLUCOSE (POC)" /> <statusCode code="completed" / > <effectiveTime value="332614876238" /> <value unit="mg/dL" xsi:type="PQ" value="103" /> <interpretationCode codeSystem="local" code="*" /> <referenceRange> <observationRange> <text>70-99</text> </observationRange> </referenceRange> </observation> </component> </organizer> </entry> <entry> < organizer moodCode="EVN" classCode="BATTERY"> <templateId root= "216.840.1.184363.10..22.4.1" /> <id nullFlavor="NA" /> <code codeSystem="local" code="PTTH" displayName="PTT HEPARIN PROTOCOLS" /> < statusCode code="completed" /> <component> <observation moodCode= "EVN" classCode="OBS"> <templateId root="216.840.1.151471.10..22.4.2 " /> <id nullFlavor="NA" /> <code codeSystem="local" code="PTT " displayName="PARTIAL THROMBOPLASTIN TIME" /> <statusCode code= "completed" /> <effectiveTime value="813280571812" /> <value unit="sec" xsi:type="PQ" value="61" /> <interpretationCode codeSystem= "local" code="*" /> <referenceRange> <observationRange> <text>23-39</text> </observationRange> </ referenceRange> </observation> </component> </organizer> </entry > <entry> <organizer moodCode="EVN" classCode="BATTERY"> <templateId root="216.840.1.865339..4.1" /> <id nullFlavor="NA" /> <code codeSystem="local" code="GLUMON" displayName="GLUCOSE (POC)" /> < statusCode code="completed" /> <component> <observation moodCode= "EVN" classCode="OBS"> <templateId root="05.27.840.1.458712.01.28.22.4.2 " /> <id nullFlavor="NA" /> <code codeSystem="local" code= "GLUMON" displayName="GLUCOSE (POC)" /> <statusCode code="completed" / > <effectiveTime value="223505256993" /> <value unit="mg/dL" xsi:type="PQ" value="81" /> <referenceRange> < observationRange> <text>70-99</text> </observationRange > </referenceRange> </observation> </component> </ organizer> </entry> <entry> <organizer moodCode="EVN" classCode="BATTERY"> <templateId root="05.27.840.1.697032.01.28.22.4.1" /> <id nullFlavor= "NA" /> <code codeSystem="local" code="PTTH" displayName="PTT HEPARIN PROTOCOLS" /> <statusCode code="completed" /> <component> < observation moodCode="EVN" classCode="OBS"> <templateId root= "05.27.840.1.791887.1022.4.2" /> <id nullFlavor="NA" /> < code codeSystem="local" code="PTT" displayName="PARTIAL THROMBOPLASTIN TIME" /> <statusCode code="completed" /> <effectiveTime value= "159964439485" /> <value unit="sec" xsi:type="PQ" value="67" /> <interpretationCode codeSystem="local" code="*" /> <referenceRange> <observationRange> <text>23-39</text> </ observationRange> </referenceRange> </observation> </ component> </organizer> </entry> <entry> <organizer moodCode="EVN" classCode="BATTERY"> <templateId root="05.27.840.1.567874.10..22.4.1" /> <id nullFlavor="NA" /> <code codeSystem="local" code="GLUMON" displayName="GLUCOSE (POC)" /> <statusCode code="completed" /> < component> <observation moodCode="EVN" classCode="OBS"> < templateId root="840.1.815919...4.2" /> <id nullFlavor="NA " /> <code codeSystem="local" code="GLUMON" displayName="GLUCOSE (POC) " /> <statusCode code="completed" /> <effectiveTime value= "434466757868" /> <value unit="mg/dL" xsi:type="PQ" value="100" /> <interpretationCode codeSystem="local" code="*" /> < referenceRange> <observationRange> <text>70-99</text> </observationRange> </referenceRange> </observation> </component> </organizer> </entry> <entry> <organizer moodCode="EVN " classCode="BATTERY"> <templateId root="05.27.840.1.241441.10...4.1" / > <id nullFlavor="NA" /> <code codeSystem="local" code="PTTH" displayName="PTT HEPARIN PROTOCOLS" /> <statusCode code="completed" /> <component> <observation moodCode="EVN" classCode="OBS"> < templateId root="05.27.840.1.955593.10..22.4.2" /> <id nullFlavor="NA " /> <code codeSystem="local" code="PTT" displayName="PARTIAL THROMBOPLASTIN TIME" /> <statusCode code="completed" /> < effectiveTime value="867907934215" /> <value unit="sec" xsi:type="PQ" value="40" /> <interpretationCode codeSystem="local" code="*" /> <referenceRange> <observationRange> <text>23-39</ text> </observationRange> </referenceRange> </ observation> </component> </organizer> </entry> <entry> <organizer moodCode="EVN" classCode="BATTERY"> <templateId root= "216.840.1.315852.10..22.4.1" /> <id nullFlavor="NA" /> <code codeSystem="local" code="GLUMON" displayName="GLUCOSE (POC)" /> < statusCode code="completed" /> <component> <observation moodCode= "EVN" classCode="OBS"> <templateId root="2.16.840.1.089915.10..22.4.2 " /> <id nullFlavor="NA" /> <code codeSystem="local" code= "GLUMON" displayName="GLUCOSE (POC)" /> <statusCode code="completed" / > <effectiveTime value="[id number]" /> <value unit="mg/dL" xsi:type="PQ" value="115" /> <interpretationCode codeSystem="local" code="*" /> <referenceRange> <observationRange> <text>70-99</text> </observationRange> </referenceRange> </observation> </component> </organizer> </entry> <entry> < organizer moodCode="EVN" classCode="BATTERY"> <templateId root= "216.840.1.934956.01.28.22.4.1" /> <id nullFlavor="NA" /> <code codeSystem="local" code="PTTH" displayName="PTT HEPARIN PROTOCOLS" /> < statusCode code="completed" /> <component> <observation moodCode= "EVN" classCode="OBS"> <templateId root="840.1.365169...4.2 " /> <id nullFlavor="NA" /> <code codeSystem="local" code="PTT " displayName="PARTIAL THROMBOPLASTIN TIME" /> <statusCode code= "completed" /> <effectiveTime value="548967478406" /> <value unit="sec" xsi:type="PQ" value="46" /> <interpretationCode codeSystem= "local" code="*" /> <referenceRange> <observationRange> <text>23-39</text> </observationRange> </ referenceRange> </observation> </component> </organizer> </entry > <entry> <organizer moodCode="EVN" classCode="BATTERY"> <templateId root="840.1.678852.01.28.22.4.1" /> <id nullFlavor="NA" /> <code codeSystem="local" code="GLUMON" displayName="GLUCOSE (POC)" /> < statusCode code="completed" /> <component> <observation moodCode= "EVN" classCode="OBS"> <templateId root="05.27.840.1.540893.01.28.22.4.2 " /> <id nullFlavor="NA" /> <code codeSystem="local" code= "GLUMON" displayName="GLUCOSE (POC)" /> <statusCode code="completed" / > <effectiveTime value="764635642969" /> <value unit="mg/dL" xsi:type="PQ" value="99" /> <referenceRange> < observationRange> <text>70-99</text> </observationRange > </referenceRange> </observation> </component> </ organizer> </entry> <entry> <organizer moodCode="EVN" classCode="BATTERY"> <templateId root="05.27.840.1.624791.10..22.4.1" /> <id nullFlavor= "NA" /> <code codeSystem="local" code="GLUMON" displayName="GLUCOSE (POC)" /> <statusCode code="completed" /> <component> <observation moodCode="EVN" classCode="OBS"> <templateId root= "840.1.789671.01.28.22.4.2" /> <id nullFlavor="NA" /> < code codeSystem="local" code="GLUMON" displayName="GLUCOSE (POC)" /> < statusCode code="completed" /> <effectiveTime value="451278142871" /> <value unit="mg/dL" xsi:type="PQ" value="96" /> < referenceRange> <observationRange> <text>70-99</text> </observationRange> </referenceRange> </observation> </component> </organizer> </entry> <entry> <organizer moodCode="EVN " classCode="BATTERY"> <templateId root="840.1.503084.01.28.22.4.1" / > <id nullFlavor="NA" /> <code codeSystem="local" code="PTTH" displayName="PTT HEPARIN PROTOCOLS" /> <statusCode code="completed" /> <component> <observation moodCode="EVN" classCode="OBS"> < templateId root="05.27.840.1.311591.10..22.4.2" /> <id nullFlavor="NA " /> <code codeSystem="local" code="PTT" displayName="PARTIAL THROMBOPLASTIN TIME" /> <statusCode code="completed" /> < effectiveTime value="168190905286" /> <value unit="sec" xsi:type="PQ" value="42" /> <interpretationCode codeSystem="local" code="*" /> <referenceRange> <observationRange> <text>23-39</ text> </observationRange> </referenceRange> </ observation> </component> </organizer> </entry> <entry> <organizer moodCode="EVN" classCode="BATTERY"> <templateId root= "16.840.1.865361.10..22.4.1" /> <id nullFlavor="NA" /> <code codeSystem="local" code="CREATT" displayName="CREATININE" /> <statusCode code="completed" /> <component> <observation moodCode="EVN" classCode="OBS"> <templateId root="16.840.1.654267.10..22.4.2" /> <id nullFlavor="NA" /> <code codeSystem="local" code="eGFR" displayName="EST GFR (MDRD)" /> <statusCode code="completed" /> <effectiveTime value="556613150101" /> <value unit="mL/min" xsi:type ="PQ" value="> 60" /> <referenceRange> <observationRange > <text>> 59</text> </observationRange> </ referenceRange> </observation> </component> <component> <observation moodCode="EVN" classCode="OBS"> <templateId root= "05.27.840.1.928060.10.20.22.4.2" /> <id nullFlavor="NA" /> < code codeSystem="local" code="CREAT" displayName="CREATININE" /> < statusCode code="completed" /> <effectiveTime value="953312263649" /> <value unit="mg/dL" xsi:type="PQ" value="0.5" /> < interpretationCode codeSystem="local" code="*" /> <referenceRange> <observationRange> <text>0.6-1.0</text> </ observationRange> </referenceRange> </observation> </ component> </organizer> </entry> <entry> <organizer moodCode="EVN" classCode="BATTERY"> <templateId root="216.840.1.579631.10..22.4.1" /> <id nullFlavor="NA" /> <code codeSystem="local" code="GLUMON" displayName="GLUCOSE (POC)" /> <statusCode code="completed" /> < component> <observation moodCode="EVN" classCode="OBS"> < templateId root="216.840.1.462842.10..22.4.2" /> <id nullFlavor="NA " /> <code codeSystem="local" code="GLUMON" displayName="GLUCOSE (POC) " /> <statusCode code="completed" /> <effectiveTime value= "056187859592" /> <value unit="mg/dL" xsi:type="PQ" value="98" /> <referenceRange> <observationRange> <text>70-99</ text> </observationRange> </referenceRange> </ observation> </component> </organizer> </entry> <entry> <organizer moodCode="EVN" classCode="BATTERY"> <templateId root= "216.840.1.446337.10..22.4.1" /> <id nullFlavor="NA" /> <code codeSystem="local" code="PTTH" displayName="PTT HEPARIN PROTOCOLS" /> < statusCode code="completed" /> <component> <observation moodCode= "EVN" classCode="OBS"> <templateId root="2.16.840.1.252360.10..22.4.2 " /> <id nullFlavor="NA" /> <code codeSystem="local" code="PTT " displayName="PARTIAL THROMBOPLASTIN TIME" /> <statusCode code= "completed" /> <effectiveTime value="143920509836" /> <value unit="sec" xsi:type="PQ" value="142" /> <interpretationCode codeSystem= "local" code="" /> <referenceRange> <observationRange> <text>23-39</text> </observationRange> </ referenceRange> </observation> </component> </organizer> </entry > <entry> <organizer moodCode="EVN" classCode="BATTERY"> <templateId root="2.16.840.1.074633.10..22.4.1" /> <id nullFlavor="NA" /> <code codeSystem="local" code="GLUMON" displayName="GLUCOSE (POC)" /> < statusCode code="completed" /> <component> <observation moodCode= "EVN" classCode="OBS"> <templateId root="2.16.840.1.512925.10.20.22.4.2 " /> <id nullFlavor="NA" /> <code codeSystem="local" code= "GLUMON" displayName="GLUCOSE (POC)" /> <statusCode code="completed" / > <effectiveTime value="338964089417" /> <value unit="mg/dL" xsi:type="PQ" value="93" /> <referenceRange> < observationRange> <text>70-99</text> </observationRange > </referenceRange> </observation> </component> </ organizer> </entry> <entry> <organizer moodCode="EVN" classCode="BATTERY"> <templateId root="216.840.1.565446.10..22.4.1" /> <id nullFlavor= "NA" /> <code codeSystem="local" code="METAB" displayName="METABOLIC PANEL , BASIC" /> <statusCode code="completed" /> <component> < observation moodCode="EVN" classCode="OBS"> <templateId root= "05.27.840.1.773645.01.28.22.4.2" /> <id nullFlavor="NA" /> < code codeSystem="local" code="K" displayName="POTASSIUM" /> < statusCode code="completed" /> <effectiveTime value="666707920668" /> <value unit="mmol/L" xsi:type="PQ" value="3.9" /> < referenceRange> <observationRange> <text>3.5-5.3</text> </observationRange> </referenceRange> </observation > </component> <component> <observation moodCode="EVN" classCode="OBS"> <templateId root="05.27.840.1.274354.01.28..4.2" /> <id nullFlavor="NA" /> <code codeSystem="local" code="eGFR" displayName="EST GFR (MDRD)" /> <statusCode code="completed" /> <effectiveTime value="201092076465" /> <value unit="mL/min" xsi:type ="PQ" value="> 60" /> <referenceRange> <observationRange > <text>> 59</text> </observationRange> </ referenceRange> </observation> </component> <component> <observation moodCode="EVN" classCode="OBS"> <templateId root= "05.27.840.1.778106.01.28.22.4.2" /> <id nullFlavor="NA" /> < code codeSystem="local" code="GAP" displayName="ANION GAP" /> < statusCode code="completed" /> <effectiveTime value="420554274807" /> <value unit="mmol/L" xsi:type="PQ" value="6" /> < referenceRange> <observationRange> <text>5-15</text> </observationRange> </referenceRange> </observation> </component> <component> <observation moodCode="EVN" classCode= "OBS"> <templateId root="2.16.840.1.213189.10..4.2" /> < id nullFlavor="NA" /> <code codeSystem="local" code="eCrCl" displayName ="EST CrCl (CG)" /> <statusCode code="completed" /> < effectiveTime value="145901904502" /> <value unit="mL/min" xsi:type="PQ " value="> 60" /> <referenceRange> <observationRange> <text>> 59</text> </observationRange> </ referenceRange> </observation> </component> <component> <observation moodCode="EVN" classCode="OBS"> <templateId root= "216.840.1.680163.10...4.2" /> <id nullFlavor="NA" /> < code codeSystem="local" code="GLU" displayName="GLUCOSE" /> < statusCode code="completed" /> <effectiveTime value="139046579635" /> <value unit="mg/dL" xsi:type="PQ" value="90" /> < referenceRange> <observationRange> <text>70-99</text> </observationRange> </referenceRange> </observation> </component> <component> <observation moodCode="EVN" classCode= "OBS"> <templateId root="216.840.1.611021.10..22.4.2" /> < id nullFlavor="NA" /> <code codeSystem="local" code="CA" displayName= "CALCIUM" /> <statusCode code="completed" /> <effectiveTime value="819259912763" /> <value unit="mg/dL" xsi:type="PQ" value="8.3" / > <interpretationCode codeSystem="local" code="*" /> < referenceRange> <observationRange> <text>8.5-10.1</text > </observationRange> </referenceRange> </observation > </component> <component> <observation moodCode="EVN" classCode="OBS"> <templateId root="16.840.1.936853.01.28.22.4.2" /> <id nullFlavor="NA" /> <code codeSystem="local" code="BUN" displayName="BLOOD UREA NITROGEN" /> <statusCode code="completed" /> <effectiveTime value="085082084519" /> <value unit="mg/dL" xsi: type="PQ" value="3" /> <interpretationCode codeSystem="local" code="*" /> <referenceRange> <observationRange> <text>7- 20</text> </observationRange> </referenceRange> </ observation> </component> <component> <observation moodCode= "EVN" classCode="OBS"> <templateId root="16.840.1.765659.10...4.2 " /> <id nullFlavor="NA" /> <code codeSystem="local" code= "CREAT" displayName="CREATININE" /> <statusCode code="completed" /> <effectiveTime value="387914733644" /> <value unit="mg/dL" xsi: type="PQ" value="0.5" /> <interpretationCode codeSystem="local" code="* " /> <referenceRange> <observationRange> <text> 0.6-1.0</text> </observationRange> </referenceRange> </observation> </component> <component> <observation moodCode= "EVN" classCode="OBS"> <templateId root="16.840.1.573966.1022.4.2 " /> <id nullFlavor="NA" /> <code codeSystem="local" code="NA " displayName="SODIUM" /> <statusCode code="completed" /> < effectiveTime value="124725477780" /> <value unit="mmol/L" xsi:type="PQ " value="137" /> <referenceRange> <observationRange> <text>135-148</text> </observationRange> </ referenceRange> </observation> </component> <component> <observation moodCode="EVN" classCode="OBS"> <templateId root= "840.1.078149.01.28.22.4.2" /> <id nullFlavor="NA" /> < code codeSystem="local" code="CL" displayName="CHLORIDE" /> < statusCode code="completed" /> <effectiveTime value="702944526458" /> <value unit="mmol/L" xsi:type="PQ" value="103" /> < referenceRange> <observationRange> <text>98-110</text> </observationRange> </referenceRange> </observation> </component> <component> <observation moodCode="EVN" classCode ="OBS"> <templateId root="05.27.840.1.561199.10.2022.4.2" /> < id nullFlavor="NA" /> <code codeSystem="local" code="CO2" displayName= "CARBON DIOXIDE" /> <statusCode code="completed" /> < effectiveTime value="913313020307" /> <value unit="mmol/L" xsi:type="PQ " value="28" /> <referenceRange> <observationRange> <text>21-32</text> </observationRange> </ referenceRange> </observation> </component> </organizer> </entry > <entry> <organizer moodCode="EVN" classCode="BATTERY"> <templateId root="16.840.1.653236.10..22.4.1" /> <id nullFlavor="NA" /> <code codeSystem="local" code="CBC" displayName="CBC" /> <statusCode code= "completed" /> <component> <observation moodCode="EVN" classCode= "OBS"> <templateId root="05.27.840.1.355342.10...4.2" /> < id nullFlavor="NA" /> <code codeSystem="local" code="CBCCOM" displayName="COMMENT" /> <statusCode code="completed" /> < effectiveTime value="701588559251" /> <value unit="" xsi:type="PQ" value="REVIEWED" /> <referenceRange> <observationRange> <text /> </observationRange> </referenceRange> </observation> </component> <component> <observation moodCode="EVN" classCode="OBS"> <templateId root= "16.840.1.402706.10.22.4.2" /> <id nullFlavor="NA" /> < code codeSystem="local" code="MCH" displayName="MEAN CELL HGB" /> < statusCode code="completed" /> <effectiveTime value="575734392767" /> <value unit="pg" xsi:type="PQ" value="26.4" /> < interpretationCode codeSystem="local" code="*" /> <referenceRange> <observationRange> <text>27.0-33.0</text> </ observationRange> </referenceRange> </observation> </ component> <component> <observation moodCode="EVN" classCode="OBS"> <templateId root="2.840.1.596079.22.4.2" /> <id nullFlavor="NA" /> <code codeSystem="local" code="MCHC" displayName= "MEAN CELL HGB CONCENTRATION" /> <statusCode code="completed" /> <effectiveTime value="940329029902" /> <value unit="g/dL" xsi:type= "PQ" value="31.4" /> <interpretationCode codeSystem="local" code="*" / > <referenceRange> <observationRange> <text> 32.0-37.0</text> </observationRange> </referenceRange> </observation> </component> <component> <observation moodCode="EVN" classCode="OBS"> <templateId root= "05.27.840.1.587417.01.28.22.4.2" /> <id nullFlavor="NA" /> < code codeSystem="local" code="MCV" displayName="MEAN CELL VOLUME" /> < statusCode code="completed" /> <effectiveTime value="776282946837" /> <value unit="fl" xsi:type="PQ" value="84.2" /> <referenceRange > <observationRange> <text>80.0-100.0</text> </observationRange> </referenceRange> </observation> </ component> <component> <observation moodCode="EVN" classCode="OBS"> <templateId root="2.840.1.501338.22.4.2" /> <id nullFlavor="NA" /> <code codeSystem="local" code="RBC" displayName=" RED BLOOD CELL" /> <statusCode code="completed" /> < effectiveTime value="197707803096" /> <value unit="m/cumm" xsi:type="PQ " value="3.03" /> <interpretationCode codeSystem="local" code="*" /> <referenceRange> <observationRange> <text>4.00- 6.00</text> </observationRange> </referenceRange> </ observation> </component> <component> <observation moodCode= "EVN" classCode="OBS"> <templateId root="16.840.1.652407...4.2 " /> <id nullFlavor="NA" /> <code codeSystem="local" code="RDW " displayName="RED CELL DISTRIBUTION WIDTH" /> <statusCode code= "completed" /> <effectiveTime value="865203769611" /> <value unit="%" xsi:type="PQ" value="15.5" /> <referenceRange> <observationRange> <text>11.0-15.6</text> </ observationRange> </referenceRange> </observation> </ component> <component> <observation moodCode="EVN" classCode="OBS"> <templateId root="05.27.840.1.712843.10..4.2" /> <id nullFlavor="NA" /> <code codeSystem="local" code="WBC" displayName= "WHITE BLOOD CELL" /> <statusCode code="completed" /> < effectiveTime value="066225367230" /> <value unit="k/cumm" xsi:type="PQ " value="8.8" /> <referenceRange> <observationRange> <text>5.0-10.0</text> </observationRange> </ referenceRange> </observation> </component> <component> <observation moodCode="EVN" classCode="OBS"> <templateId root= "16.840.1.352487.10.2022.4.2" /> <id nullFlavor="NA" /> < code codeSystem="local" code="HGBT" displayName="HEMOGLOBIN" /> < statusCode code="completed" /> <effectiveTime value="515960280887" /> <value unit="gm/dL" xsi:type="PQ" value="8.0" /> < interpretationCode codeSystem="local" code="*" /> <referenceRange> <observationRange> <text>12.0-16.0</text> </ observationRange> </referenceRange> </observation> </ component> <component> <observation moodCode="EVN" classCode="OBS"> <templateId root="05.27.840.1.977816.10.22.4.2" /> <id nullFlavor="NA" /> <code codeSystem="local" code="HCTT" displayName= "HEMATOCRIT" /> <statusCode code="completed" /> < effectiveTime value="007785044049" /> <value unit="%" xsi:type="PQ " value="25.5" /> <interpretationCode codeSystem="local" code="*" /> <referenceRange> <observationRange> <text>37.0- 47.0</text> </observationRange> </referenceRange> </ observation> </component> <component> <observation moodCode= "EVN" classCode="OBS"> <templateId root="16.840.1.709225.10.20.22.4.2 " /> <id nullFlavor="NA" /> <code codeSystem="local" code="PLT " displayName="PLATELET COUNT" /> <statusCode code="completed" /> <effectiveTime value="306894313623" /> <value unit="k/cumm" xsi: type="PQ" value="158" /> <referenceRange> <observationRange > <text>150-400</text> </observationRange> </ referenceRange> </observation> </component> </organizer> </entry > <entry> <organizer moodCode="EVN" classCode="BATTERY"> <templateId root="16.840.1.760872.10..22.4.1" /> <id nullFlavor="NA" /> <code codeSystem="local" code="GLUMON" displayName="GLUCOSE (POC)" /> < statusCode code="completed" /> <component> <observation moodCode= "EVN" classCode="OBS"> <templateId root="05.27.840.1.723630.10..22.4.2 " /> <id nullFlavor="NA" /> <code codeSystem="local" code= "GLUMON" displayName="GLUCOSE (POC)" /> <statusCode code="completed" / > <effectiveTime value="364172254599" /> <value unit="mg/dL" xsi:type="PQ" value="101" /> <interpretationCode codeSystem="local" code="*" /> <referenceRange> <observationRange> <text>70-99</text> </observationRange> </referenceRange> </observation> </component> </organizer> </entry> <entry> < organizer moodCode="EVN" classCode="BATTERY"> <templateId root= "05.27.840.1.652207.10..22.4.1" /> <id nullFlavor="NA" /> <code codeSystem="local" code="PTTH" displayName="PTT HEPARIN PROTOCOLS" /> < statusCode code="completed" /> <component> <observation moodCode= "EVN" classCode="OBS"> <templateId root="216.840.1.387605.10..22.4.2 " /> <id nullFlavor="NA" /> <code codeSystem="local" code="PTT " displayName="PARTIAL THROMBOPLASTIN TIME" /> <statusCode code= "completed" /> <effectiveTime value="214494870461" /> <value unit="sec" xsi:type="PQ" value="92" /> <interpretationCode codeSystem= "local" code="*" /> <referenceRange> <observationRange> <text>23-39</text> </observationRange> </ referenceRange> </observation> </component> </organizer> </entry > <entry> <organizer moodCode="EVN" classCode="BATTERY"> <templateId root="216.840.1.133619.10..22.4.1" /> <id nullFlavor="NA" /> <code codeSystem="local" code="GLUMON" displayName="GLUCOSE (POC)" /> < statusCode code="completed" /> <component> <observation moodCode= "EVN" classCode="OBS"> <templateId root="2.16.840.1.207838.10..22.4.2 " /> <id nullFlavor="NA" /> <code codeSystem="local" code= "GLUMON" displayName="GLUCOSE (POC)" /> <statusCode code="completed" / > <effectiveTime value="190166119670" /> <value unit="mg/dL" xsi:type="PQ" value="102" /> <interpretationCode codeSystem="local" code="*" /> <referenceRange> <observationRange> <text>70-99</text> </observationRange> </referenceRange> </observation> </component> </organizer> </entry> <entry> < organizer moodCode="EVN" classCode="BATTERY"> <templateId root= "05.27.840.1.889393.10.4.1" /> <id nullFlavor="NA" /> <code codeSystem="local" code="PTTH" displayName="PTT HEPARIN PROTOCOLS" /> < statusCode code="completed" /> <component> <observation moodCode= "EVN" classCode="OBS"> <templateId root="840.1.523337.01.28.22.4.2 " /> <id nullFlavor="NA" /> <code codeSystem="local" code="PTT " displayName="PARTIAL THROMBOPLASTIN TIME" /> <statusCode code= "completed" /> <effectiveTime value="764524194864" /> <value unit="sec" xsi:type="PQ" value="98" /> <interpretationCode codeSystem= "local" code="*" /> <referenceRange> <observationRange> <text>23-39</text> </observationRange> </ referenceRange> </observation> </component> </organizer> </entry > <entry> <organizer moodCode="EVN" classCode="BATTERY"> <templateId root="840.1.017595.01.28.22.4.1" /> <id nullFlavor="NA" /> <code codeSystem="local" code="GLUMON" displayName="GLUCOSE (POC)" /> < statusCode code="completed" /> <component> <observation moodCode= "EVN" classCode="OBS"> <templateId root="05.27.840.1.222498.10.4.2 " /> <id nullFlavor="NA" /> <code codeSystem="local" code= "GLUMON" displayName="GLUCOSE (POC)" /> <statusCode code="completed" / > <effectiveTime value="403783311734" /> <value unit="mg/dL" xsi:type="PQ" value="97" /> <referenceRange> < observationRange> <text>70-99</text> </observationRange > </referenceRange> </observation> </component> </ organizer> </entry> <entry> <organizer moodCode="EVN" classCode="BATTERY"> <templateId root="2.16.840.1.937838.10.20.22.4.1" /> <id nullFlavor= "NA" /> <code codeSystem="local" code="GLUMON" displayName="GLUCOSE (POC)" /> <statusCode code="completed" /> <component> <observation moodCode="EVN" classCode="OBS"> <templateId root= "216.840.1.447457.10..22.4.2" /> <id nullFlavor="NA" /> < code codeSystem="local" code="GLUMON" displayName="GLUCOSE (POC)" /> < statusCode code="completed" /> <effectiveTime value="118856789975" /> <value unit="mg/dL" xsi:type="PQ" value="88" /> < referenceRange> <observationRange> <text>70-99</text> </observationRange> </referenceRange> </observation> </component> </organizer> </entry> <entry> <organizer moodCode="EVN " classCode="BATTERY"> <templateId root="2.16.840.1.154869.10..22.4.1" / > <id nullFlavor="NA" /> <code codeSystem="local" code="GLUMON" displayName="GLUCOSE (POC)" /> <statusCode code="completed" /> < component> <observation moodCode="EVN" classCode="OBS"> < templateId root="2.16.840.1.408493.10.20.22.4.2" /> <id nullFlavor="NA " /> <code codeSystem="local" code="GLUMON" displayName="GLUCOSE (POC) " /> <statusCode code="completed" /> <effectiveTime value= "867102064611" /> <value unit="mg/dL" xsi:type="PQ" value="97" /> <referenceRange> <observationRange> <text>70-99</ text> </observationRange> </referenceRange> </ observation> </component> </organizer> </entry> <entry> <organizer moodCode="EVN" classCode="BATTERY"> <templateId root= "2.16.840.1.112974.10.20.22.4.1" /> <id nullFlavor="NA" /> <code codeSystem="local" code="PTT" displayName="PARTIAL THROMBOPLASTIN TIME" /> <statusCode code="completed" /> <component> <observation moodCode= "EVN" classCode="OBS"> <templateId root="2.16.840.1.742882.10.20.22.4.2 " /> <id nullFlavor="NA" /> <code codeSystem="local" code="PTT " displayName="PARTIAL THROMBOPLASTIN TIME" /> <statusCode code= "completed" /> <effectiveTime value="486552410890" /> <value unit="sec" xsi:type="PQ" value="40" /> <interpretationCode codeSystem= "local" code="*" /> <referenceRange> <observationRange> <text>23-39</text> </observationRange> </ referenceRange> </observation> </component> </organizer> </entry > <entry> <organizer moodCode="EVN" classCode="BATTERY"> <templateId root="16.840.1.483157.10..22.4.1" /> <id nullFlavor="NA" /> <code codeSystem="local" code="PT" displayName="PROTHROMBIN TIME WITH INR" /> < statusCode code="completed" /> <component> <observation moodCode= "EVN" classCode="OBS"> <templateId root="16.840.1.922450.01.28.22.4.2 " /> <id nullFlavor="NA" /> <code codeSystem="local" code= "INRX" displayName="INTERNATIONAL NORMAL RATIO" /> <statusCode code= "completed" /> <effectiveTime value="" /> <value unit="" xsi:type="PQ" value="1.2" /> <interpretationCode codeSystem= "local" code="*" /> <referenceRange> <observationRange> <text>0.9-1.1</text> </observationRange> </ referenceRange> </observation> </component> <component> <observation moodCode="EVN" classCode="OBS"> <templateId root= "16.840.1.937292....4.2" /> <id nullFlavor="NA" /> < code codeSystem="local" code="PTPAT" displayName="PROTHROMBIN TIME" /> <statusCode code="completed" /> <effectiveTime value="" /> <value unit="sec" xsi:type="PQ" value="13.3" /> < interpretationCode codeSystem="local" code="*" /> <referenceRange> <observationRange> <text>9.3-12.2</text> </ observationRange> </referenceRange> </observation> </ component> </organizer> </entry> <entry> <organizer moodCode="EVN" classCode="BATTERY"> <templateId root="05.27.840.1.846929.10..22.4.1" /> <id nullFlavor="NA" /> <code codeSystem="local" code="CBC" displayName ="CBC" /> <statusCode code="completed" /> <component> < observation moodCode="EVN" classCode="OBS"> <templateId root= "05.27.840.1.591584.01.28.22.4.2" /> <id nullFlavor="NA" /> < code codeSystem="local" code="MCH" displayName="MEAN CELL HGB" /> < statusCode code="completed" /> <effectiveTime value="" /> <value unit="pg" xsi:type="PQ" value="26.5" /> < interpretationCode codeSystem="local" code="*" /> <referenceRange> <observationRange> <text>27.0-33.0</text> </ observationRange> </referenceRange> </observation> </ component> <component> <observation moodCode="EVN" classCode="OBS"> <templateId root="05.27.840.1.859511.10..4.2" /> <id nullFlavor="NA" /> <code codeSystem="local" code="MCHC" displayName= "MEAN CELL HGB CONCENTRATION" /> <statusCode code="completed" /> <effectiveTime value="" /> <value unit="g/dL" xsi:type= "PQ" value="31.7" /> <interpretationCode codeSystem="local" code="*" / > <referenceRange> <observationRange> <text> 32.0-37.0</text> </observationRange> </referenceRange> </observation> </component> <component> <observation moodCode="EVN" classCode="OBS"> <templateId root= "05.27.840.1.156845.10.20.22.4.2" /> <id nullFlavor="NA" /> < code codeSystem="local" code="MCV" displayName="MEAN CELL VOLUME" /> < statusCode code="completed" /> <effectiveTime value="" /> <value unit="fl" xsi:type="PQ" value="83.5" /> <referenceRange > <observationRange> <text>80.0-100.0</text> </observationRange> </referenceRange> </observation> </ component> <component> <observation moodCode="EVN" classCode="OBS"> <templateId root="05.27.840.1.736874.102022.4.2" /> <id nullFlavor="NA" /> <code codeSystem="local" code="RBC" displayName=" RED BLOOD CELL" /> <statusCode code="completed" /> < effectiveTime value="" /> <value unit="m/cumm" xsi:type="PQ " value="3.10" /> <interpretationCode codeSystem="local" code="*" /> <referenceRange> <observationRange> <text>4.00- 6.00</text> </observationRange> </referenceRange> </ observation> </component> <component> <observation moodCode= "EVN" classCode="OBS"> <templateId root="840.1.767016.10.20.22.4.2 " /> <id nullFlavor="NA" /> <code codeSystem="local" code="RDW " displayName="RED CELL DISTRIBUTION WIDTH" /> <statusCode code= "completed" /> <effectiveTime value="" /> <value unit="%" xsi:type="PQ" value="15.5" /> <referenceRange> <observationRange> <text>11.0-15.6</text> </ observationRange> </referenceRange> </observation> </ component> <component> <observation moodCode="EVN" classCode="OBS"> <templateId root="216.840.1.170890.10.20.22.4.2" /> <id nullFlavor="NA" /> <code codeSystem="local" code="WBC" displayName= "WHITE BLOOD CELL" /> <statusCode code="completed" /> < effectiveTime value="" /> <value unit="k/cumm" xsi:type="PQ " value="11.3" /> <interpretationCode codeSystem="local" code="*" /> <referenceRange> <observationRange> <text>5.0- 10.0</text> </observationRange> </referenceRange> </ observation> </component> <component> <observation moodCode= "EVN" classCode="OBS"> <templateId root="05.27.840.1.475462.10..22.4.2 " /> <id nullFlavor="NA" /> <code codeSystem="local" code= "HGBT" displayName="HEMOGLOBIN" /> <statusCode code="completed" /> <effectiveTime value="" /> <value unit="gm/dL" xsi: type="PQ" value="8.2" /> <interpretationCode codeSystem="local" code="* " /> <referenceRange> <observationRange> <text> 12.0-16.0</text> </observationRange> </referenceRange> </observation> </component> <component> <observation moodCode="EVN" classCode="OBS"> <templateId root= "16.840.1.543456.10.20.22.4.2" /> <id nullFlavor="NA" /> < code codeSystem="local" code="HCTT" displayName="HEMATOCRIT" /> < statusCode code="completed" /> <effectiveTime value="" /> <value unit="%" xsi:type="PQ" value="25.9" /> < interpretationCode codeSystem="local" code="*" /> <referenceRange> <observationRange> <text>37.0-47.0</text> </ observationRange> </referenceRange> </observation> </ component> <component> <observation moodCode="EVN" classCode="OBS"> <templateId root="05.27.840.1.033530.01.28.22.4.2" /> <id nullFlavor="NA" /> <code codeSystem="local" code="PLT" displayName= "PLATELET COUNT" /> <statusCode code="completed" /> < effectiveTime value="" /> <value unit="k/cumm" xsi:type="PQ " value="187" /> <referenceRange> <observationRange> <text>150-400</text> </observationRange> </ referenceRange> </observation> </component> </organizer> </entry > <entry> <organizer moodCode="EVN" classCode="BATTERY"> <templateId root="05.27.840.1.409878.01.28.22.4.1" /> <id nullFlavor="NA" /> <code codeSystem="local" code="GLUMON" displayName="GLUCOSE (POC)" /> < statusCode code="completed" /> <component> <observation moodCode= "EVN" classCode="OBS"> <templateId root="16.840.1.345950.102022.4.2 " /> <id nullFlavor="NA" /> <code codeSystem="local" code= "GLUMON" displayName="GLUCOSE (POC)" /> <statusCode code="completed" / > <effectiveTime value="[id number]" /> <value unit="mg/dL" xsi:type="PQ" value="106" /> <interpretationCode codeSystem="local" code="*" /> <referenceRange> <observationRange> <text>70-99</text> </observationRange> </referenceRange> </observation> </component> </organizer> </entry> <entry> < organizer moodCode="EVN" classCode="BATTERY"> <templateId root= "216.840.1.775129.10.20.22.4.1" /> <id nullFlavor="NA" /> <code codeSystem="local" code="PTTH" displayName="PTT HEPARIN PROTOCOLS" /> < statusCode code="completed" /> <component> <observation moodCode= "EVN" classCode="OBS"> <templateId root="216.840.1.582976.10.20.22.4.2 " /> <id nullFlavor="NA" /> <code codeSystem="local" code="PTT " displayName="PARTIAL THROMBOPLASTIN TIME" /> <statusCode code= "completed" /> <effectiveTime value="249886074373" /> <value unit="sec" xsi:type="PQ" value="105" /> <interpretationCode codeSystem= "local" code="*" /> <referenceRange> <observationRange> <text>23-39</text> </observationRange> </ referenceRange> </observation> </component> </organizer> </entry > <entry> <organizer moodCode="EVN" classCode="BATTERY"> <templateId root="216.840.1.163192.10.20.22.4.1" /> <id nullFlavor="NA" /> <code codeSystem="local" code="METAB" displayName="METABOLIC PANEL, BASIC" /> < statusCode code="completed" /> <component> <observation moodCode= "EVN" classCode="OBS"> <templateId root="05.27.840.1.066976.01.28.22.4.2 " /> <id nullFlavor="NA" /> <code codeSystem="local" code="K" displayName="POTASSIUM" /> <statusCode code="completed" /> < effectiveTime value="" /> <value unit="mmol/L" xsi:type="PQ " value="3.7" /> <referenceRange> <observationRange> <text>3.5-5.3</text> </observationRange> </ referenceRange> </observation> </component> <component> <observation moodCode="EVN" classCode="OBS"> <templateId root= "840.1.740038.01.28.22.4.2" /> <id nullFlavor="NA" /> < code codeSystem="local" code="eGFR" displayName="EST GFR (MDRD)" /> < statusCode code="completed" /> <effectiveTime value="" /> <value unit="mL/min" xsi:type="PQ" value="> 60" /> < referenceRange> <observationRange> <text>> 59</text> </observationRange> </referenceRange> </observation > </component> <component> <observation moodCode="EVN" classCode="OBS"> <templateId root="05.27.840.1.975778.01.28.22.4.2" /> <id nullFlavor="NA" /> <code codeSystem="local" code="GAP" displayName="ANION GAP" /> <statusCode code="completed" /> < effectiveTime value="459706641233" /> <value unit="mmol/L" xsi:type="PQ " value="10" /> <referenceRange> <observationRange> <text>5-15</text> </observationRange> </referenceRange > </observation> </component> <component> <observation moodCode="EVN" classCode="OBS"> <templateId root= "216.840.1.761696.10..22.4.2" /> <id nullFlavor="NA" /> < code codeSystem="local" code="eCrCl" displayName="EST CrCl (CG)" /> < statusCode code="completed" /> <effectiveTime value="" /> <value unit="mL/min" xsi:type="PQ" value="> 60" /> < referenceRange> <observationRange> <text>> 59</text> </observationRange> </referenceRange> </observation > </component> <component> <observation moodCode="EVN" classCode="OBS"> <templateId root="16.840.1.425529.10...4.2" /> <id nullFlavor="NA" /> <code codeSystem="local" code="GLU" displayName="GLUCOSE" /> <statusCode code="completed" /> < effectiveTime value="" /> <value unit="mg/dL" xsi:type="PQ " value="103" /> <interpretationCode codeSystem="local" code="*" /> <referenceRange> <observationRange> <text>70-99</ text> </observationRange> </referenceRange> </ observation> </component> <component> <observation moodCode= "EVN" classCode="OBS"> <templateId root="16.840.1.863569.10..22.4.2 " /> <id nullFlavor="NA" /> <code codeSystem="local" code="CA " displayName="CALCIUM" /> <statusCode code="completed" /> < effectiveTime value="" /> <value unit="mg/dL" xsi:type="PQ " value="8.4" /> <interpretationCode codeSystem="local" code="*" /> <referenceRange> <observationRange> <text>8.5- 10.1</text> </observationRange> </referenceRange> </ observation> </component> <component> <observation moodCode= "EVN" classCode="OBS"> <templateId root="2.16.840.1.236853.10..22.4.2 " /> <id nullFlavor="NA" /> <code codeSystem="local" code="BUN " displayName="BLOOD UREA NITROGEN" /> <statusCode code="completed" /> <effectiveTime value="" /> <value unit="mg/dL" xsi:type="PQ" value="4" /> <interpretationCode codeSystem="local" code= "*" /> <referenceRange> <observationRange> < text>7-20</text> </observationRange> </referenceRange> </observation> </component> <component> <observation moodCode="EVN" classCode="OBS"> <templateId root= "2.16.840.1.267903.10.2022.4.2" /> <id nullFlavor="NA" /> < code codeSystem="local" code="CREAT" displayName="CREATININE" /> < statusCode code="completed" /> <effectiveTime value="" /> <value unit="mg/dL" xsi:type="PQ" value="0.4" /> < interpretationCode codeSystem="local" code="*" /> <referenceRange> <observationRange> <text>0.6-1.0</text> </ observationRange> </referenceRange> </observation> </ component> <component> <observation moodCode="EVN" classCode="OBS"> <templateId root="216.840.1.083904.10.22.4.2" /> <id nullFlavor="NA" /> <code codeSystem="local" code="NA" displayName= "SODIUM" /> <statusCode code="completed" /> <effectiveTime value="" /> <value unit="mmol/L" xsi:type="PQ" value="137" /> <referenceRange> <observationRange> <text> 135-148</text> </observationRange> </referenceRange> </observation> </component> <component> <observation moodCode= "EVN" classCode="OBS"> <templateId root="216.840.1.389628.01.28.22.4.2 " /> <id nullFlavor="NA" /> <code codeSystem="local" code="CL " displayName="CHLORIDE" /> <statusCode code="completed" /> < effectiveTime value="" /> <value unit="mmol/L" xsi:type="PQ " value="102" /> <referenceRange> <observationRange> <text>98-110</text> </observationRange> </ referenceRange> </observation> </component> <component> <observation moodCode="EVN" classCode="OBS"> <templateId root= "216.840.1.586546.10.2022.4.2" /> <id nullFlavor="NA" /> < code codeSystem="local" code="CO2" displayName="CARBON DIOXIDE" /> < statusCode code="completed" /> <effectiveTime value="" /> <value unit="mmol/L" xsi:type="PQ" value="25" /> < referenceRange> <observationRange> <text>21-32</text> </observationRange> </referenceRange> </observation> </component> </organizer> </entry> <entry> <organizer moodCode="EVN " classCode="BATTERY"> <templateId root="16.840.1.211036.10...4.1" / > <id nullFlavor="NA" /> <code codeSystem="local" code="CBC" displayName="CBC" /> <statusCode code="completed" /> <component> <observation moodCode="EVN" classCode="OBS"> <templateId root= "216.840.1.240135...4.2" /> <id nullFlavor="NA" /> < code codeSystem="local" code="CBCCOM" displayName="COMMENT" /> < statusCode code="completed" /> <effectiveTime value="" /> <value unit="" xsi:type="PQ" value="REVIEWED" /> < referenceRange> <observationRange> <text /> < /observationRange> </referenceRange> </observation> </ component> <component> <observation moodCode="EVN" classCode="OBS"> <templateId root="216.840.1.959850....4.2" /> <id nullFlavor="NA" /> <code codeSystem="local" code="MCH" displayName= "MEAN CELL HGB" /> <statusCode code="completed" /> < effectiveTime value="" /> <value unit="pg" xsi:type="PQ" value="26.3" /> <interpretationCode codeSystem="local" code="*" /> <referenceRange> <observationRange> <text>27.0- 33.0</text> </observationRange> </referenceRange> </ observation> </component> <component> <observation moodCode= "EVN" classCode="OBS"> <templateId root="216.840.1.262965.10.22.4.2 " /> <id nullFlavor="NA" /> <code codeSystem="local" code= "MCHC" displayName="MEAN CELL HGB CONCENTRATION" /> <statusCode code= "completed" /> <effectiveTime value="" /> <value unit="g/dL" xsi:type="PQ" value="31.6" /> <interpretationCode codeSystem="local" code="*" /> <referenceRange> < observationRange> <text>32.0-37.0</text> </ observationRange> </referenceRange> </observation> </ component> <component> <observation moodCode="EVN" classCode="OBS"> <templateId root="05.27.840.1.303016.01.28.22.4.2" /> <id nullFlavor="NA" /> <code codeSystem="local" code="MCV" displayName= "MEAN CELL VOLUME" /> <statusCode code="completed" /> < effectiveTime value="" /> <value unit="fl" xsi:type="PQ" value="83.2" /> <referenceRange> <observationRange> <text>80.0-100.0</text> </observationRange> </ referenceRange> </observation> </component> <component> <observation moodCode="EVN" classCode="OBS"> <templateId root= "216.840.1.064542.10.22.4.2" /> <id nullFlavor="NA" /> < code codeSystem="local" code="RBC" displayName="RED BLOOD CELL" /> < statusCode code="completed" /> <effectiveTime value="" /> <value unit="m/cumm" xsi:type="PQ" value="3.04" /> < interpretationCode codeSystem="local" code="*" /> <referenceRange> <observationRange> <text>4.00-6.00</text> </ observationRange> </referenceRange> </observation> </ component> <component> <observation moodCode="EVN" classCode="OBS"> <templateId root="2.16.840.1.879172.10..22.4.2" /> <id nullFlavor="NA" /> <code codeSystem="local" code="RDW" displayName=" RED CELL DISTRIBUTION WIDTH" /> <statusCode code="completed" /> <effectiveTime value="" /> <value unit="%" xsi:type= "PQ" value="15.5" /> <referenceRange> <observationRange> <text>11.0-15.6</text> </observationRange> </ referenceRange> </observation> </component> <component> <observation moodCode="EVN" classCode="OBS"> <templateId root= "2.16.840.1.869238...22.4.2" /> <id nullFlavor="NA" /> < code codeSystem="local" code="WBC" displayName="WHITE BLOOD CELL" /> < statusCode code="completed" /> <effectiveTime value="" /> <value unit="k/cumm" xsi:type="PQ" value="10.3" /> < interpretationCode codeSystem="local" code="*" /> <referenceRange> <observationRange> <text>5.0-10.0</text> </ observationRange> </referenceRange> </observation> </ component> <component> <observation moodCode="EVN" classCode="OBS"> <templateId root="216.840.1.115545.10.20.22.4.2" /> <id nullFlavor="NA" /> <code codeSystem="local" code="HGBT" displayName= "HEMOGLOBIN" /> <statusCode code="completed" /> < effectiveTime value="" /> <value unit="gm/dL" xsi:type="PQ " value="8.0" /> <interpretationCode codeSystem="local" code="*" /> <referenceRange> <observationRange> <text>12.0- 16.0</text> </observationRange> </referenceRange> </ observation> </component> <component> <observation moodCode= "EVN" classCode="OBS"> <templateId root="05.27.840.1.525166.10.22.4.2 " /> <id nullFlavor="NA" /> <code codeSystem="local" code= "HCTT" displayName="HEMATOCRIT" /> <statusCode code="completed" /> <effectiveTime value="" /> <value unit="%" xsi: type="PQ" value="25.3" /> <interpretationCode codeSystem="local" code= "*" /> <referenceRange> <observationRange> < text>37.0-47.0</text> </observationRange> </referenceRange> </observation> </component> <component> <observation moodCode="EVN" classCode="OBS"> <templateId root= "05.27.840.1.230569.10.20.22.4.2" /> <id nullFlavor="NA" /> < code codeSystem="local" code="PLT" displayName="PLATELET COUNT" /> < statusCode code="completed" /> <effectiveTime value="532275925082" /> <value unit="k/cumm" xsi:type="PQ" value="123" /> < interpretationCode codeSystem="local" code="*" /> <referenceRange> <observationRange> <text>150-400</text> </ observationRange> </referenceRange> </observation> </ component> </organizer> </entry> <entry> <organizer moodCode="EVN" classCode="BATTERY"> <templateId root="16.840.1.333098.10..4.1" /> <id nullFlavor="NA" /> <code codeSystem="local" code="GLUMON" displayName="GLUCOSE (POC)" /> <statusCode code="completed" /> < component> <observation moodCode="EVN" classCode="OBS"> < templateId root="16.840.1.760353.10..4.2" /> <id nullFlavor="NA " /> <code codeSystem="local" code="GLUMON" displayName="GLUCOSE (POC) " /> <statusCode code="completed" /> <effectiveTime value= "056182211169" /> <value unit="mg/dL" xsi:type="PQ" value="97" /> <referenceRange> <observationRange> <text>70-99</ text> </observationRange> </referenceRange> </ observation> </component> </organizer> </entry> <entry> <organizer moodCode="EVN" classCode="BATTERY"> <templateId root= "05.27.840.1.103425.10..4.1" /> <id nullFlavor="NA" /> <code codeSystem="local" code="PTT" displayName="PARTIAL THROMBOPLASTIN TIME" /> <statusCode code="completed" /> <component> <observation moodCode= "EVN" classCode="OBS"> <templateId root="05.27.840.1.608907.10..22.4.2 " /> <id nullFlavor="NA" /> <code codeSystem="local" code="PTT " displayName="PARTIAL THROMBOPLASTIN TIME" /> <statusCode code= "completed" /> <effectiveTime value="500711267514" /> <value unit="sec" xsi:type="PQ" value="66" /> <interpretationCode codeSystem= "local" code="*" /> <referenceRange> <observationRange> <text>23-39</text> </observationRange> </ referenceRange> </observation> </component> </organizer> </entry > <entry> <organizer moodCode="EVN" classCode="BATTERY"> <templateId root="16.840.1.697397.10..22.4.1" /> <id nullFlavor="NA" /> <code codeSystem="local" code="GLUMON" displayName="GLUCOSE (POC)" /> < statusCode code="completed" /> <component> <observation moodCode= "EVN" classCode="OBS"> <templateId root="16.840.1.933811.10..22.4.2 " /> <id nullFlavor="NA" /> <code codeSystem="local" code= "GLUMON" displayName="GLUCOSE (POC)" /> <statusCode code="completed" / > <effectiveTime value="937776946995" /> <value unit="mg/dL" xsi:type="PQ" value="111" /> <interpretationCode codeSystem="local" code="*" /> <referenceRange> <observationRange> <text>70-99</text> </observationRange> </referenceRange> </observation> </component> </organizer> </entry> <entry> < organizer moodCode="EVN" classCode="BATTERY"> <templateId root= "05.27.830.1.932299.10..22.4.1" /> <id nullFlavor="NA" /> <code codeSystem="local" code="VANCT" displayName="VANCOMYCIN TROUGH" /> < statusCode code="completed" /> <component> <observation moodCode= "EVN" classCode="OBS"> <templateId root="05.27.840.1.493658.01.28.22.4.2 " /> <id nullFlavor="NA" /> <code codeSystem="local" code= "VANCT" displayName="VANCOMYCIN TROUGH" /> <statusCode code="completed " /> <effectiveTime value="683392776826" /> <value unit="mcg/ mL" xsi:type="PQ" value="8.1" /> <referenceRange> < observationRange> <text>5.0-20.0</text> </ observationRange> </referenceRange> </observation> </ component> </organizer> </entry> <entry> <organizer moodCode="EVN" classCode="BATTERY"> <templateId root="05.27.840.1.472210.01.28.22.4.1" /> <id nullFlavor="NA" /> <code codeSystem="local" code="GLUMON" displayName="GLUCOSE (POC)" /> <statusCode code="completed" /> < component> <observation moodCode="EVN" classCode="OBS"> < templateId root="05.27.840.1.273015.10..22.4.2" /> <id nullFlavor="NA " /> <code codeSystem="local" code="GLUMON" displayName="GLUCOSE (POC) " /> <statusCode code="completed" /> <effectiveTime value= "960073326021" /> <value unit="mg/dL" xsi:type="PQ" value="115" /> <interpretationCode codeSystem="local" code="*" /> < referenceRange> <observationRange> <text>70-99</text> </observationRange> </referenceRange> </observation> </component> </organizer> </entry> <entry> <organizer moodCode="EVN " classCode="BATTERY"> <templateId root="16.840.1.687343.10..22.4.1" / > <id nullFlavor="NA" /> <code codeSystem="local" code="PTTH" displayName="PTT HEPARIN PROTOCOLS" /> <statusCode code="completed" /> <component> <observation moodCode="EVN" classCode="OBS"> < templateId root="16.840.1.537559.10...4.2" /> <id nullFlavor="NA " /> <code codeSystem="local" code="PTT" displayName="PARTIAL THROMBOPLASTIN TIME" /> <statusCode code="completed" /> < effectiveTime value="073492661620" /> <value unit="sec" xsi:type="PQ" value="61" /> <interpretationCode codeSystem="local" code="*" /> <referenceRange> <observationRange> <text>23-39</ text> </observationRange> </referenceRange> </ observation> </component> </organizer> </entry> <entry> <organizer moodCode="EVN" classCode="BATTERY"> <templateId root= "05.27.840.1.497728.10...4.1" /> <id nullFlavor="NA" /> <code codeSystem="local" code="GLUMON" displayName="GLUCOSE (POC)" /> < statusCode code="completed" /> <component> <observation moodCode= "EVN" classCode="OBS"> <templateId root="05.27.840.1.371230.10..22.4.2 " /> <id nullFlavor="NA" /> <code codeSystem="local" code= "GLUMON" displayName="GLUCOSE (POC)" /> <statusCode code="completed" / > <effectiveTime value="730319796683" /> <value unit="mg/dL" xsi:type="PQ" value="106" /> <interpretationCode codeSystem="local" code="*" /> <referenceRange> <observationRange> <text>70-99</text> </observationRange> </referenceRange> </observation> </component> </organizer> </entry> <entry> < organizer moodCode="EVN" classCode="BATTERY"> <templateId root= "16.840.1.763973.10..22.4.1" /> <id nullFlavor="NA" /> <code codeSystem="local" code="GLUMON" displayName="GLUCOSE (POC)" /> < statusCode code="completed" /> <component> <observation moodCode= "EVN" classCode="OBS"> <templateId root="05.27.840.1.506084.10..22.4.2 " /> <id nullFlavor="NA" /> <code codeSystem="local" code= "GLUMON" displayName="GLUCOSE (POC)" /> <statusCode code="completed" / > <effectiveTime value="029557842800" /> <value unit="mg/dL" xsi:type="PQ" value="112" /> <interpretationCode codeSystem="local" code="*" /> <referenceRange> <observationRange> <text>70-99</text> </observationRange> </referenceRange> </observation> </component> </organizer> </entry> <entry> < organizer moodCode="EVN" classCode="BATTERY"> <templateId root= "2.16.840.1.915573.10.4.1" /> <id nullFlavor="NA" /> <code codeSystem="local" code="GLUMON" displayName="GLUCOSE (POC)" /> < statusCode code="completed" /> <component> <observation moodCode= "EVN" classCode="OBS"> <templateId root="840.1.234075.01.28.22.4.2 " /> <id nullFlavor="NA" /> <code codeSystem="local" code= "GLUMON" displayName="GLUCOSE (POC)" /> <statusCode code="completed" / > <effectiveTime value="797307188650" /> <value unit="mg/dL" xsi:type="PQ" value="118" /> <interpretationCode codeSystem="local" code="*" /> <referenceRange> <observationRange> <text>70-99</text> </observationRange> </referenceRange> </observation> </component> </organizer> </entry> <entry> < organizer moodCode="EVN" classCode="BATTERY"> <templateId root= "840.1.943228.01.28.22.4.1" /> <id nullFlavor="NA" /> <code codeSystem="local" code="PTTH" displayName="PTT HEPARIN PROTOCOLS" /> < statusCode code="completed" /> <component> <observation moodCode= "EVN" classCode="OBS"> <templateId root="840.1.638160.01.28.22.4.2 " /> <id nullFlavor="NA" /> <code codeSystem="local" code="PTT " displayName="PARTIAL THROMBOPLASTIN TIME" /> <statusCode code= "completed" /> <effectiveTime value="925198928180" /> <value unit="sec" xsi:type="PQ" value="102" /> <interpretationCode codeSystem= "local" code="*" /> <referenceRange> <observationRange> <text>23-39</text> </observationRange> </ referenceRange> </observation> </component> </organizer> </entry > <entry> <organizer moodCode="EVN" classCode="BATTERY"> <templateId root="16.840.1.550082.10..4.1" /> <id nullFlavor="NA" /> <code codeSystem="local" code="GLUMON" displayName="GLUCOSE (POC)" /> < statusCode code="completed" /> <component> <observation moodCode= "EVN" classCode="OBS"> <templateId root="216.840.1.478117.10..4.2 " /> <id nullFlavor="NA" /> <code codeSystem="local" code= "GLUMON" displayName="GLUCOSE (POC)" /> <statusCode code="completed" / > <effectiveTime value="946532003063" /> <value unit="mg/dL" xsi:type="PQ" value="98" /> <referenceRange> < observationRange> <text>70-99</text> </observationRange > </referenceRange> </observation> </component> </ organizer> </entry> <entry> <organizer moodCode="EVN" classCode="BATTERY"> <templateId root="05.27.840.1.263868.10..4.1" /> <id nullFlavor= "NA" /> <code codeSystem="local" code="PTTH" displayName="PTT HEPARIN PROTOCOLS" /> <statusCode code="completed" /> <component> < observation moodCode="EVN" classCode="OBS"> <templateId root= "05.27.840.1.891224.10..22.4.2" /> <id nullFlavor="NA" /> < code codeSystem="local" code="PTT" displayName="PARTIAL THROMBOPLASTIN TIME" /> <statusCode code="completed" /> <effectiveTime value= "117175466008" /> <value unit="sec" xsi:type="PQ" value="202" /> <interpretationCode codeSystem="local" code="" /> <referenceRange > <observationRange> <text>23-39</text> </ observationRange> </referenceRange> </observation> </ component> </organizer> </entry> <entry> <organizer moodCode="EVN" classCode="BATTERY"> <templateId root="16.840.1.095169.10..22.4.1" /> <id nullFlavor="NA" /> <code codeSystem="local" code="GLUMON" displayName="GLUCOSE (POC)" /> <statusCode code="completed" /> < component> <observation moodCode="EVN" classCode="OBS"> < templateId root="16.840.1.323050.10..22.4.2" /> <id nullFlavor="NA " /> <code codeSystem="local" code="GLUMON" displayName="GLUCOSE (POC) " /> <statusCode code="completed" /> <effectiveTime value= "527817093612" /> <value unit="mg/dL" xsi:type="PQ" value="106" /> <interpretationCode codeSystem="local" code="*" /> < referenceRange> <observationRange> <text>70-99</text> </observationRange> </referenceRange> </observation> </component> </organizer> </entry> <entry> <organizer moodCode="EVN " classCode="BATTERY"> <templateId root="2.16.840.1.240982.10.22.4.1" / > <id nullFlavor="NA" /> <code codeSystem="local" code="GLUMON" displayName="GLUCOSE (POC)" /> <statusCode code="completed" /> < component> <observation moodCode="EVN" classCode="OBS"> < templateId root="840.1.810940.01.28.22.4.2" /> <id nullFlavor="NA " /> <code codeSystem="local" code="GLUMON" displayName="GLUCOSE (POC) " /> <statusCode code="completed" /> <effectiveTime value= "" /> <value unit="mg/dL" xsi:type="PQ" value="102" /> <interpretationCode codeSystem="local" code="*" /> < referenceRange> <observationRange> <text>70-99</text> </observationRange> </referenceRange> </observation> </component> </organizer> </entry> <entry> <organizer moodCode="EVN " classCode="BATTERY"> <templateId root="840.1.000761.01.28.22.4.1" / > <id nullFlavor="NA" /> <code codeSystem="local" code="PTTH" displayName="PTT HEPARIN PROTOCOLS" /> <statusCode code="completed" /> <component> <observation moodCode="EVN" classCode="OBS"> < templateId root="05.27.840.1.245827.01.28.22.4.2" /> <id nullFlavor="NA " /> <code codeSystem="local" code="PTT" displayName="PARTIAL THROMBOPLASTIN TIME" /> <statusCode code="completed" /> < effectiveTime value="461935724776" /> <value unit="sec" xsi:type="PQ" value="79" /> <interpretationCode codeSystem="local" code="*" /> <referenceRange> <observationRange> <text>23-39</ text> </observationRange> </referenceRange> </ observation> </component> </organizer> </entry> <entry> <organizer moodCode="EVN" classCode="BATTERY"> <templateId root= "05.27.840.1.631490.10..4.1" /> <id nullFlavor="NA" /> <code codeSystem="local" code="GLUMON" displayName="GLUCOSE (POC)" /> < statusCode code="completed" /> <component> <observation moodCode= "EVN" classCode="OBS"> <templateId root="05.27.840.1.956531.10..4.2 " /> <id nullFlavor="NA" /> <code codeSystem="local" code= "GLUMON" displayName="GLUCOSE (POC)" /> <statusCode code="completed" / > <effectiveTime value="829637582688" /> <value unit="mg/dL" xsi:type="PQ" value="99" /> <referenceRange> < observationRange> <text>70-99</text> </observationRange > </referenceRange> </observation> </component> </ organizer> </entry> <entry> <organizer moodCode="EVN" classCode="BATTERY"> <templateId root="05.27.840.1.197230.10..4.1" /> <id nullFlavor= "NA" /> <code codeSystem="local" code="PTTH" displayName="PTT HEPARIN PROTOCOLS" /> <statusCode code="completed" /> <component> < observation moodCode="EVN" classCode="OBS"> <templateId root= "840.1.068298.10.20.22.4.2" /> <id nullFlavor="NA" /> < code codeSystem="local" code="PTT" displayName="PARTIAL THROMBOPLASTIN TIME" /> <statusCode code="completed" /> <effectiveTime value= "030571834729" /> <value unit="sec" xsi:type="PQ" value="79" /> <interpretationCode codeSystem="local" code="*" /> <referenceRange> <observationRange> <text>23-39</text> </ observationRange> </referenceRange> </observation> </ component> </organizer> </entry> <entry> <organizer moodCode="EVN" classCode="BATTERY"> <templateId root="216.840.1.250243.10.20.22.4.1" /> <id nullFlavor="NA" /> <code codeSystem="local" code="GLUMON" displayName="GLUCOSE (POC)" /> <statusCode code="completed" /> < component> <observation moodCode="EVN" classCode="OBS"> < templateId root="216.840.1.173832.10.20.22.4.2" /> <id nullFlavor="NA " /> <code codeSystem="local" code="GLUMON" displayName="GLUCOSE (POC) " /> <statusCode code="completed" /> <effectiveTime value= "053210863337" /> <value unit="mg/dL" xsi:type="PQ" value="104" /> <interpretationCode codeSystem="local" code="*" /> < referenceRange> <observationRange> <text>70-99</text> </observationRange> </referenceRange> </observation> </component> </organizer> </entry> <entry> <organizer moodCode="EVN " classCode="BATTERY"> <templateId root="216.840.1.582337.10..4.1" / > <id nullFlavor="NA" /> <code codeSystem="local" code="GLUMON" displayName="GLUCOSE (POC)" /> <statusCode code="completed" /> < component> <observation moodCode="EVN" classCode="OBS"> < templateId root="840.1.692012.01.28.22.4.2" /> <id nullFlavor="NA " /> <code codeSystem="local" code="GLUMON" displayName="GLUCOSE (POC) " /> <statusCode code="completed" /> <effectiveTime value= "336791254928" /> <value unit="mg/dL" xsi:type="PQ" value="98" /> <referenceRange> <observationRange> <text>70-99</ text> </observationRange> </referenceRange> </ observation> </component> </organizer> </entry> <entry> <organizer moodCode="EVN" classCode="BATTERY"> <templateId root= "840.1.275414.01.28.224.1" /> <id nullFlavor="NA" /> <code codeSystem="local" code="PTTH" displayName="PTT HEPARIN PROTOCOLS" /> < statusCode code="completed" /> <component> <observation moodCode= "EVN" classCode="OBS"> <templateId root="05.27.840.1.482409.10.4.2 " /> <id nullFlavor="NA" /> <code codeSystem="local" code="PTT " displayName="PARTIAL THROMBOPLASTIN TIME" /> <statusCode code= "completed" /> <effectiveTime value="177253184435" /> <value unit="sec" xsi:type="PQ" value="62" /> <interpretationCode codeSystem= "local" code="*" /> <referenceRange> <observationRange> <text>23-39</text> </observationRange> </ referenceRange> </observation> </component> </organizer> </entry > <entry> <organizer moodCode="EVN" classCode="BATTERY"> <templateId root="16.840.1.499166.10.4.1" /> <id nullFlavor="NA" /> <code codeSystem="local" code="CBC" displayName="CBC" /> <statusCode code= "completed" /> <component> <observation moodCode="EVN" classCode= "OBS"> <templateId root="216.840.1.427913.10..4.2" /> < id nullFlavor="NA" /> <code codeSystem="local" code="CBCCOM" displayName="COMMENT" /> <statusCode code="completed" /> < effectiveTime value="" /> <value unit="" xsi:type="PQ" value="CC" /> <referenceRange> <observationRange> <text /> </observationRange> </referenceRange> </ observation> </component> <component> <observation moodCode= "EVN" classCode="OBS"> <templateId root="16.840.1.116057.10.4.2 " /> <id nullFlavor="NA" /> <code codeSystem="local" code="MCH " displayName="MEAN CELL HGB" /> <statusCode code="completed" /> <effectiveTime value="" /> <value unit="pg" xsi:type= "PQ" value="25.6" /> <interpretationCode codeSystem="local" code="*" / > <referenceRange> <observationRange> <text> 27.0-33.0</text> </observationRange> </referenceRange> </observation> </component> <component> <observation moodCode="EVN" classCode="OBS"> <templateId root= "05.27.840.1.863669.10.22.4.2" /> <id nullFlavor="NA" /> < code codeSystem="local" code="MCHC" displayName="MEAN CELL HGB CONCENTRATION" / > <statusCode code="completed" /> <effectiveTime value= "480823206973" /> <value unit="g/dL" xsi:type="PQ" value="30.6" /> <interpretationCode codeSystem="local" code="*" /> < referenceRange> <observationRange> <text>32.0-37.0</text > </observationRange> </referenceRange> </observation > </component> <component> <observation moodCode="EVN" classCode="OBS"> <templateId root="05.27.840.1.752895.01.28.22.4.2" /> <id nullFlavor="NA" /> <code codeSystem="local" code="MCV" displayName="MEAN CELL VOLUME" /> <statusCode code="completed" /> <effectiveTime value="554241155978" /> <value unit="fl" xsi:type= "PQ" value="83.7" /> <referenceRange> <observationRange> <text>80.0-100.0</text> </observationRange> </ referenceRange> </observation> </component> <component> <observation moodCode="EVN" classCode="OBS"> <templateId root= "05.27.840.1.211351.10.22.4.2" /> <id nullFlavor="NA" /> < code codeSystem="local" code="RBC" displayName="RED BLOOD CELL" /> < statusCode code="completed" /> <effectiveTime value="" /> <value unit="m/cumm" xsi:type="PQ" value="2.89" /> < interpretationCode codeSystem="local" code="*" /> <referenceRange> <observationRange> <text>4.00-6.00</text> </ observationRange> </referenceRange> </observation> </ component> <component> <observation moodCode="EVN" classCode="OBS"> <templateId root="2.16.840.1.988689.10..22.4.2" /> <id nullFlavor="NA" /> <code codeSystem="local" code="RDW" displayName=" RED CELL DISTRIBUTION WIDTH" /> <statusCode code="completed" /> <effectiveTime value="" /> <value unit="%" xsi:type= "PQ" value="15.4" /> <referenceRange> <observationRange> <text>11.0-15.6</text> </observationRange> </ referenceRange> </observation> </component> <component> <observation moodCode="EVN" classCode="OBS"> <templateId root= "2.16.840.1.266115.10.20.22.4.2" /> <id nullFlavor="NA" /> < code codeSystem="local" code="WBC" displayName="WHITE BLOOD CELL" /> < statusCode code="completed" /> <effectiveTime value="" /> <value unit="k/cumm" xsi:type="PQ" value="6.3" /> < referenceRange> <observationRange> <text>5.0-10.0</text > </observationRange> </referenceRange> </observation > </component> <component> <observation moodCode="EVN" classCode="OBS"> <templateId root="16.840.1.351320.10..4.2" /> <id nullFlavor="NA" /> <code codeSystem="local" code="HGBT" displayName="HEMOGLOBIN" /> <statusCode code="completed" /> < effectiveTime value="019673264445" /> <value unit="gm/dL" xsi:type="PQ " value="7.4" /> <interpretationCode codeSystem="local" code="*" /> <referenceRange> <observationRange> <text>12.0- 16.0</text> </observationRange> </referenceRange> </ observation> </component> <component> <observation moodCode= "EVN" classCode="OBS"> <templateId root="05.27.840.1.318996...4.2 " /> <id nullFlavor="NA" /> <code codeSystem="local" code= "HCTT" displayName="HEMATOCRIT" /> <statusCode code="completed" /> <effectiveTime value="" /> <value unit="%" xsi: type="PQ" value="24.2" /> <interpretationCode codeSystem="local" code= "*" /> <referenceRange> <observationRange> < text>37.0-47.0</text> </observationRange> </referenceRange> </observation> </component> </organizer> </entry> <entry> < organizer moodCode="EVN" classCode="BATTERY"> <templateId root= "16.840.1.177240.10...4.1" /> <id nullFlavor="NA" /> <code codeSystem="local" code="GLUMON" displayName="GLUCOSE (POC)" /> < statusCode code="completed" /> <component> <observation moodCode= "EVN" classCode="OBS"> <templateId root="216.840.1.691664.10...4.2 " /> <id nullFlavor="NA" /> <code codeSystem="local" code= "GLUMON" displayName="GLUCOSE (POC)" /> <statusCode code="completed" / > <effectiveTime value="497980342911" /> <value unit="mg/dL" xsi:type="PQ" value="95" /> <referenceRange> < observationRange> <text>70-99</text> </observationRange > </referenceRange> </observation> </component> </ organizer> </entry> <entry> <organizer moodCode="EVN" classCode="BATTERY"> <templateId root="216.840.1.073796.10..22.4.1" /> <id nullFlavor= "NA" /> <code codeSystem="local" code="VANCT" displayName="VANCOMYCIN TROUGH" /> <statusCode code="completed" /> <component> < observation moodCode="EVN" classCode="OBS"> <templateId root= "2.16.840.1.696624.10..22.4.2" /> <id nullFlavor="NA" /> < code codeSystem="local" code="VANCT" displayName="VANCOMYCIN TROUGH" /> <statusCode code="completed" /> <effectiveTime value="961179195222" / > <value unit="mcg/mL" xsi:type="PQ" value="16.0" /> < referenceRange> <observationRange> <text>5.0-20.0</text > </observationRange> </referenceRange> </observation > </component> </organizer> </entry> <entry> <organizer moodCode= "EVN" classCode="BATTERY"> <templateId root="216.840.1.782038...4.1 " /> <id nullFlavor="NA" /> <code codeSystem="local" code="GLUMON" displayName="GLUCOSE (POC)" /> <statusCode code="completed" /> < component> <observation moodCode="EVN" classCode="OBS"> < templateId root="840.1.092187.01.28.22.4.2" /> <id nullFlavor="NA " /> <code codeSystem="local" code="GLUMON" displayName="GLUCOSE (POC) " /> <statusCode code="completed" /> <effectiveTime value= "292335412299" /> <value unit="mg/dL" xsi:type="PQ" value="109" /> <interpretationCode codeSystem="local" code="*" /> < referenceRange> <observationRange> <text>70-99</text> </observationRange> </referenceRange> </observation> </component> </organizer> </entry> <entry> <organizer moodCode="EVN " classCode="BATTERY"> <templateId root="840.1.754609.01.28.22.4.1" / > <id nullFlavor="NA" /> <code codeSystem="local" code="GLUMON" displayName="GLUCOSE (POC)" /> <statusCode code="completed" /> < component> <observation moodCode="EVN" classCode="OBS"> < templateId root="840.1.939638.01.28.22.4.2" /> <id nullFlavor="NA " /> <code codeSystem="local" code="GLUMON" displayName="GLUCOSE (POC) " /> <statusCode code="completed" /> <effectiveTime value= "666769158601" /> <value unit="mg/dL" xsi:type="PQ" value="114" /> <interpretationCode codeSystem="local" code="*" /> < referenceRange> <observationRange> <text>70-99</text> </observationRange> </referenceRange> </observation> </component> </organizer> </entry> <entry> <organizer moodCode="EVN " classCode="BATTERY"> <templateId root="05.27.840.1.417464.10..22.4.1" / > <id nullFlavor="NA" /> <code codeSystem="local" code="GLUMON" displayName="GLUCOSE (POC)" /> <statusCode code="completed" /> < component> <observation moodCode="EVN" classCode="OBS"> < templateId root="05.27.840.1.267551.10..22.4.2" /> <id nullFlavor="NA " /> <code codeSystem="local" code="GLUMON" displayName="GLUCOSE (POC) " /> <statusCode code="completed" /> <effectiveTime value= "211260791261" /> <value unit="mg/dL" xsi:type="PQ" value="109" /> <interpretationCode codeSystem="local" code="*" /> < referenceRange> <observationRange> <text>70-99</text> </observationRange> </referenceRange> </observation> </component> </organizer> </entry> <entry> <organizer moodCode="EVN " classCode="BATTERY"> <templateId root="05.27.840.1.863340.10..22.4.1" / > <id nullFlavor="NA" /> <code codeSystem="local" code="PTTH" displayName="PTT HEPARIN PROTOCOLS" /> <statusCode code="completed" /> <component> <observation moodCode="EVN" classCode="OBS"> < templateId root="2.16.840.1.627473.10.20.22.4.2" /> <id nullFlavor="NA " /> <code codeSystem="local" code="PTT" displayName="PARTIAL THROMBOPLASTIN TIME" /> <statusCode code="completed" /> < effectiveTime value="649954225537" /> <value unit="sec" xsi:type="PQ" value="81" /> <interpretationCode codeSystem="local" code="*" /> <referenceRange> <observationRange> <text>23-39</ text> </observationRange> </referenceRange> </ observation> </component> </organizer> </entry> <entry> <organizer moodCode="EVN" classCode="BATTERY"> <templateId root= "2.16.840.1.105475.10.20.22.4.1" /> <id nullFlavor="NA" /> <code codeSystem="local" code="GLUMON" displayName="GLUCOSE (POC)" /> < statusCode code="completed" /> <component> <observation moodCode= "EVN" classCode="OBS"> <templateId root="2.16.840.1.877861.10.20.22.4.2 " /> <id nullFlavor="NA" /> <code codeSystem="local" code= "GLUMON" displayName="GLUCOSE (POC)" /> <statusCode code="completed" / > <effectiveTime value="212102492945" /> <value unit="mg/dL" xsi:type="PQ" value="106" /> <interpretationCode codeSystem="local" code="*" /> <referenceRange> <observationRange> <text>70-99</text> </observationRange> </referenceRange> </observation> </component> </organizer> </entry> <entry> < organizer moodCode="EVN" classCode="BATTERY"> <templateId root= "05.27.840.1.452909.10..4.1" /> <id nullFlavor="NA" /> <code codeSystem="local" code="GLUMON" displayName="GLUCOSE (POC)" /> < statusCode code="completed" /> <component> <observation moodCode= "EVN" classCode="OBS"> <templateId root="840.1.721564.01.28.22.4.2 " /> <id nullFlavor="NA" /> <code codeSystem="local" code= "GLUMON" displayName="GLUCOSE (POC)" /> <statusCode code="completed" / > <effectiveTime value="765362607235" /> <value unit="mg/dL" xsi:type="PQ" value="92" /> <referenceRange> < observationRange> <text>70-99</text> </observationRange > </referenceRange> </observation> </component> </ organizer> </entry> <entry> <organizer moodCode="EVN" classCode="BATTERY"> <templateId root="840.1.001008.01.28.22.4.1" /> <id nullFlavor= "NA" /> <code codeSystem="local" code="GLUMON" displayName="GLUCOSE (POC)" /> <statusCode code="completed" /> <component> <observation moodCode="EVN" classCode="OBS"> <templateId root= "840.1.002654.01.28.22.4.2" /> <id nullFlavor="NA" /> < code codeSystem="local" code="GLUMON" displayName="GLUCOSE (POC)" /> < statusCode code="completed" /> <effectiveTime value="755516847276" /> <value unit="mg/dL" xsi:type="PQ" value="122" /> < interpretationCode codeSystem="local" code="*" /> <referenceRange> <observationRange> <text>70-99</text> </ observationRange> </referenceRange> </observation> </ component> </organizer> </entry> <entry> <organizer moodCode="EVN" classCode="BATTERY"> <templateId root="16.840.1.286091.10..22.4.1" /> <id nullFlavor="NA" /> <code codeSystem="local" code="GLUMON" displayName="GLUCOSE (POC)" /> <statusCode code="completed" /> < component> <observation moodCode="EVN" classCode="OBS"> < templateId root="16.840.1.686709.10..22.4.2" /> <id nullFlavor="NA " /> <code codeSystem="local" code="GLUMON" displayName="GLUCOSE (POC) " /> <statusCode code="completed" /> <effectiveTime value= "192716000995" /> <value unit="mg/dL" xsi:type="PQ" value="102" /> <interpretationCode codeSystem="local" code="*" /> < referenceRange> <observationRange> <text>70-99</text> </observationRange> </referenceRange> </observation> </component> </organizer> </entry> <entry> <organizer moodCode="EVN " classCode="BATTERY"> <templateId root="16.840.1.204401.10..22.4.1" / > <id nullFlavor="NA" /> <code codeSystem="local" code="BCLACT" displayName="BC REFLEX LACTIC ACID" /> <statusCode code="completed" /> <component> <observation moodCode="EVN" classCode="OBS"> < templateId root="2.16.840.1.910726.10.20.22.4.2" /> <id nullFlavor="NA " /> <code codeSystem="local" code="LACT" displayName="LACTIC ACID" /> <statusCode code="completed" /> <effectiveTime value= "151263465587" /> <value unit="mmol/L" xsi:type="PQ" value="0.5" /> <referenceRange> <observationRange> <text>0.5-2.0 </text> </observationRange> </referenceRange> </ observation> </component> </organizer> </entry> <entry> <organizer moodCode="EVN" classCode="BATTERY"> <templateId root= "2.16.840.1.956667.10.20.22.4.1" /> <id nullFlavor="NA" /> <code codeSystem="local" code="BC" displayName="BLOOD CULTURE" /> <statusCode code="completed" /> <component> <observation moodCode="EVN" classCode="OBS"> <templateId root="2.16.840.1.697123.10.20.22.4.2" /> <id nullFlavor="NA" /> <code codeSystem="local" code="MB" displayName="Microbiology" /> <statusCode code="completed" /> <effectiveTime value="685637918011" /> <value xsi:type="ST" value="<pre ><b>BLOOD CULTURE</b> See BelowIs this the first BLOOD CULTURE or a possible SEPSIS patient? YBLOOD CULTURE(F) Sanam Date/Time: 04/13/2015 21: 12 Crow Date/Time: 04/19/2015 07:32SOURCE: BLOODSPEC DESC: [id number] [facility] [facility] [place] [address]</pre>" /> <referenceRange> < observationRange> <text /> </observationRange> </referenceRange> </observation> </component> </organizer> </ entry> <entry> <organizer moodCode="EVN" classCode="BATTERY"> < templateId root="2.16.840.1.057351.10..22.4.1" /> <id nullFlavor="NA" /> <code codeSystem="local" code="BC" displayName="BLOOD CULTURE" /> < statusCode code="completed" /> <component> <observation moodCode= "EVN" classCode="OBS"> <templateId root="2.16.840.1.714595.10...4.2 " /> <id nullFlavor="NA" /> <code codeSystem="local" code="MB " displayName="Microbiology" /> <statusCode code="completed" /> <effectiveTime value="363712196251" /> <value xsi:type="ST" value="< pre><b>BLOOD CULTURE</b> See BelowIs this the first BLOOD CULTURE or a possible SEPSIS patient? YBLOOD CULTURE(F) Sanam Date/Time: 04/13/2015 21: 22 Crow Date/Time: 04/19/2015 07:32SOURCE: BLOODSPEC DESC: [id number] [facility] [place] [address]</pre>" /> <referenceRange> < observationRange> <text /> </observationRange> </referenceRange> </observation> </component> </organizer> </ entry> <entry> <organizer moodCode="EVN" classCode="BATTERY"> < templateId root="2.16.840.1.623383.10..22.4.1" /> <id nullFlavor="NA" /> <code codeSystem="local" code="GLUMON" displayName="GLUCOSE (POC)" /> <statusCode code="completed" /> <component> <observation moodCode= "EVN" classCode="OBS"> <templateId root="2.16.840.1.292007.10.20.22.4.2 " /> <id nullFlavor="NA" /> <code codeSystem="local" code= "GLUMON" displayName="GLUCOSE (POC)" /> <statusCode code="completed" / > <effectiveTime value="660973358700" /> <value unit="mg/dL" xsi:type="PQ" value="99" /> <referenceRange> < observationRange> <text>70-99</text> </observationRange > </referenceRange> </observation> </component> </ organizer> </entry> <entry> <organizer moodCode="EVN" classCode="BATTERY"> <templateId root="2.16.840.1.498538.10.20.22.4.1" /> <id nullFlavor= "NA" /> <code codeSystem="local" code="PTTH" displayName="PTT HEPARIN PROTOCOLS" /> <statusCode code="completed" /> <component> < observation moodCode="EVN" classCode="OBS"> <templateId root= "2.16.840.1.796527.10.20.22.4.2" /> <id nullFlavor="NA" /> < code codeSystem="local" code="PTT" displayName="PARTIAL THROMBOPLASTIN TIME" /> <statusCode code="completed" /> <effectiveTime value= "962165062763" /> <value unit="sec" xsi:type="PQ" value="89" /> <interpretationCode codeSystem="local" code="*" /> <referenceRange> <observationRange> <text>23-39</text> </ observationRange> </referenceRange> </observation> </ component> </organizer> </entry> <entry> <organizer moodCode="EVN" classCode="BATTERY"> <templateId root="05.27.840.1.658642.10..22.4.1" /> <id nullFlavor="NA" /> <code codeSystem="local" code="METAB" displayName="METABOLIC PANEL, BASIC" /> <statusCode code="completed" /> <component> <observation moodCode="EVN" classCode="OBS"> < templateId root="[id number]" /> <id nullFlavor="NA " /> <code codeSystem="local" code="K" displayName="POTASSIUM" /> <statusCode code="completed" /> <effectiveTime value="[id number] " /> <value unit="mmol/L" xsi:type="PQ" value="3.7" /> < referenceRange> <observationRange> <text>3.5-5.3</text> </observationRange> </referenceRange> </observation > </component> <component> <observation moodCode="EVN" classCode="OBS"> <templateId root="[id number]" /> <id nullFlavor="NA" /> <code codeSystem="local" code="eGFR" displayName="EST GFR (MDRD)" /> <statusCode code="completed" /> <effectiveTime value="[id number]" /> <value unit="mL/min" xsi:type ="PQ" value="> 60" /> <referenceRange> <observationRange > <text>> 59</text> </observationRange> </ referenceRange> </observation> </component> <component> <observation moodCode="EVN" classCode="OBS"> <templateId root= "05.27.840.1.313973.01.28.22.4.2" /> <id nullFlavor="NA" /> < code codeSystem="local" code="GAP" displayName="ANION GAP" /> < statusCode code="completed" /> <effectiveTime value="" /> <value unit="mmol/L" xsi:type="PQ" value="9" /> < referenceRange> <observationRange> <text>5-15</text> </observationRange> </referenceRange> </observation> </component> <component> <observation moodCode="EVN" classCode= "OBS"> <templateId root="2.16.840.1.195839.10...4.2" /> < id nullFlavor="NA" /> <code codeSystem="local" code="eCrCl" displayName ="EST CrCl (CG)" /> <statusCode code="completed" /> < effectiveTime value="" /> <value unit="mL/min" xsi:type="PQ " value="> 60" /> <referenceRange> <observationRange> <text>> 59</text> </observationRange> </ referenceRange> </observation> </component> <component> <observation moodCode="EVN" classCode="OBS"> <templateId root= "2.16.840.1.697717.10...4.2" /> <id nullFlavor="NA" /> < code codeSystem="local" code="GLU" displayName="GLUCOSE" /> < statusCode code="completed" /> <effectiveTime value="" /> <value unit="mg/dL" xsi:type="PQ" value="98" /> < referenceRange> <observationRange> <text>70-99</text> </observationRange> </referenceRange> </observation> </component> <component> <observation moodCode="EVN" classCode= "OBS"> <templateId root="16.840.1.906176.10.20.22.4.2" /> < id nullFlavor="NA" /> <code codeSystem="local" code="CA" displayName= "CALCIUM" /> <statusCode code="completed" /> <effectiveTime value="883373570813" /> <value unit="mg/dL" xsi:type="PQ" value="8.6" / > <referenceRange> <observationRange> <text>8.5 -10.1</text> </observationRange> </referenceRange> </ observation> </component> <component> <observation moodCode= "EVN" classCode="OBS"> <templateId root="16.840.1.862512.10..22.4.2 " /> <id nullFlavor="NA" /> <code codeSystem="local" code="BUN " displayName="BLOOD UREA NITROGEN" /> <statusCode code="completed" /> <effectiveTime value="" /> <value unit="mg/dL" xsi:type="PQ" value="6" /> <interpretationCode codeSystem="local" code= "*" /> <referenceRange> <observationRange> < text>7-20</text> </observationRange> </referenceRange> </observation> </component> <component> <observation moodCode="EVN" classCode="OBS"> <templateId root= "05.27.840.1.395605.10.20.22.4.2" /> <id nullFlavor="NA" /> < code codeSystem="local" code="CREAT" displayName="CREATININE" /> < statusCode code="completed" /> <effectiveTime value="" /> <value unit="mg/dL" xsi:type="PQ" value="0.7" /> < referenceRange> <observationRange> <text>0.6-1.0</text> </observationRange> </referenceRange> </observation > </component> <component> <observation moodCode="EVN" classCode="OBS"> <templateId root="216.840.1.482372.10..22.4.2" /> <id nullFlavor="NA" /> <code codeSystem="local" code="NA" displayName="SODIUM" /> <statusCode code="completed" /> < effectiveTime value="" /> <value unit="mmol/L" xsi:type="PQ " value="135" /> <referenceRange> <observationRange> <text>135-148</text> </observationRange> </ referenceRange> </observation> </component> <component> <observation moodCode="EVN" classCode="OBS"> <templateId root= "05.27.840.1.534512.10..4.2" /> <id nullFlavor="NA" /> < code codeSystem="local" code="CL" displayName="CHLORIDE" /> < statusCode code="completed" /> <effectiveTime value="" /> <value unit="mmol/L" xsi:type="PQ" value="102" /> < referenceRange> <observationRange> <text>98-110</text> </observationRange> </referenceRange> </observation> </component> <component> <observation moodCode="EVN" classCode ="OBS"> <templateId root="05.27.840.1.373638.10...4.2" /> < id nullFlavor="NA" /> <code codeSystem="local" code="CO2" displayName= "CARBON DIOXIDE" /> <statusCode code="completed" /> < effectiveTime value="" /> <value unit="mmol/L" xsi:type="PQ " value="24" /> <referenceRange> <observationRange> <text>21-32</text> </observationRange> </ referenceRange> </observation> </component> </organizer> </entry > <entry> <organizer moodCode="EVN" classCode="BATTERY"> <templateId root="840.1.592013.10..4.1" /> <id nullFlavor="NA" /> <code codeSystem="local" code="CBC" displayName="CBC" /> <statusCode code= "completed" /> <component> <observation moodCode="EVN" classCode= "OBS"> <templateId root="05.27.840.1.582270.10..4.2" /> < id nullFlavor="NA" /> <code codeSystem="local" code="MCH" displayName= "MEAN CELL HGB" /> <statusCode code="completed" /> < effectiveTime value="631144553756" /> <value unit="pg" xsi:type="PQ" value="25.3" /> <interpretationCode codeSystem="local" code="*" /> <referenceRange> <observationRange> <text>27.0- 33.0</text> </observationRange> </referenceRange> </ observation> </component> <component> <observation moodCode= "EVN" classCode="OBS"> <templateId root="840.1.739153.10.4.2 " /> <id nullFlavor="NA" /> <code codeSystem="local" code= "MCHC" displayName="MEAN CELL HGB CONCENTRATION" /> <statusCode code= "completed" /> <effectiveTime value="822758254602" /> <value unit="g/dL" xsi:type="PQ" value="30.6" /> <interpretationCode codeSystem="local" code="*" /> <referenceRange> < observationRange> <text>32.0-37.0</text> </ observationRange> </referenceRange> </observation> </ component> <component> <observation moodCode="EVN" classCode="OBS"> <templateId root="05.27.840.1.403229.1022.4.2" /> <id nullFlavor="NA" /> <code codeSystem="local" code="MCV" displayName= "MEAN CELL VOLUME" /> <statusCode code="completed" /> < effectiveTime value="223890972816" /> <value unit="fl" xsi:type="PQ" value="82.8" /> <referenceRange> <observationRange> <text>80.0-100.0</text> </observationRange> </ referenceRange> </observation> </component> <component> <observation moodCode="EVN" classCode="OBS"> <templateId root= "05.27.840.1.589805.01.28.22.4.2" /> <id nullFlavor="NA" /> < code codeSystem="local" code="RBC" displayName="RED BLOOD CELL" /> < statusCode code="completed" /> <effectiveTime value="773977922327" /> <value unit="m/cumm" xsi:type="PQ" value="2.96" /> < interpretationCode codeSystem="local" code="*" /> <referenceRange> <observationRange> <text>4.00-6.00</text> </ observationRange> </referenceRange> </observation> </ component> <component> <observation moodCode="EVN" classCode="OBS"> <templateId root="05.27.840.1.106196...4.2" /> <id nullFlavor="NA" /> <code codeSystem="local" code="RDW" displayName=" RED CELL DISTRIBUTION WIDTH" /> <statusCode code="completed" /> <effectiveTime value="346218299878" /> <value unit="%" xsi:type= "PQ" value="15.9" /> <interpretationCode codeSystem="local" code="*" / > <referenceRange> <observationRange> <text> 11.0-15.6</text> </observationRange> </referenceRange> </observation> </component> <component> <observation moodCode="EVN" classCode="OBS"> <templateId root= "216.840.1.744115.01.28.22.4.2" /> <id nullFlavor="NA" /> < code codeSystem="local" code="WBC" displayName="WHITE BLOOD CELL" /> < statusCode code="completed" /> <effectiveTime value="251137369801" /> <value unit="k/cumm" xsi:type="PQ" value="5.3" /> < referenceRange> <observationRange> <text>5.0-10.0</text > </observationRange> </referenceRange> </observation > </component> <component> <observation moodCode="EVN" classCode="OBS"> <templateId root="216.840.1.589335.01.28.22.4.2" /> <id nullFlavor="NA" /> <code codeSystem="local" code="HGBT" displayName="HEMOGLOBIN" /> <statusCode code="completed" /> < effectiveTime value="356637522848" /> <value unit="gm/dL" xsi:type="PQ " value="7.5" /> <interpretationCode codeSystem="local" code="*" /> <referenceRange> <observationRange> <text>12.0- 16.0</text> </observationRange> </referenceRange> </ observation> </component> <component> <observation moodCode= "EVN" classCode="OBS"> <templateId root="05.27.840.1.275120.10.20.22.4.2 " /> <id nullFlavor="NA" /> <code codeSystem="local" code= "HCTT" displayName="HEMATOCRIT" /> <statusCode code="completed" /> <effectiveTime value="393932640144" /> <value unit="%" xsi: type="PQ" value="24.5" /> <interpretationCode codeSystem="local" code= "*" /> <referenceRange> <observationRange> < text>37.0-47.0</text> </observationRange> </referenceRange> </observation> </component> <component> <observation moodCode="EVN" classCode="OBS"> <templateId root= "05.27.840.1.419744.10...4.2" /> <id nullFlavor="NA" /> < code codeSystem="local" code="PLT" displayName="PLATELET COUNT" /> < statusCode code="completed" /> <effectiveTime value="320219685746" /> <value unit="k/cumm" xsi:type="PQ" value="Note" /> < referenceRange> <observationRange> <text>150-400</text> </observationRange> </referenceRange> </observation > </component> </organizer> </entry> <entry> <organizer moodCode= "EVN" classCode="BATTERY"> <templateId root="05.27.840.1.706168.10..22.4.1 " /> <id nullFlavor="NA" /> <code codeSystem="local" code="PLT" displayName="PLATELET COUNT" /> <statusCode code="completed" /> < component> <observation moodCode="EVN" classCode="OBS"> < templateId root="2.16.840.1.270603.10..22.4.2" /> <id nullFlavor="NA " /> <code codeSystem="local" code="PLT" displayName="PLATELET COUNT" / > <statusCode code="completed" /> <effectiveTime value= "298096205813" /> <value unit="k/cumm" xsi:type="PQ" value="225" /> <referenceRange> <observationRange> <text>150-400 </text> </observationRange> </referenceRange> </ observation> </component> </organizer> </entry> <entry> <organizer moodCode="EVN" classCode="BATTERY"> <templateId root= "2.16.840.1.310496.10..22.4.1" /> <id nullFlavor="NA" /> <code codeSystem="local" code="GLUMON" displayName="GLUCOSE (POC)" /> < statusCode code="completed" /> <component> <observation moodCode= "EVN" classCode="OBS"> <templateId root="2.16.840.1.138944.10.20.22.4.2 " /> <id nullFlavor="NA" /> <code codeSystem="local" code= "GLUMON" displayName="GLUCOSE (POC)" /> <statusCode code="completed" / > <effectiveTime value="078012497135" /> <value unit="mg/dL" xsi:type="PQ" value="97" /> <referenceRange> < observationRange> <text>70-99</text> </observationRange > </referenceRange> </observation> </component> </ organizer> </entry> <entry> <organizer moodCode="EVN" classCode="BATTERY"> <templateId root="840.1.361374.10.4.1" /> <id nullFlavor= "NA" /> <code codeSystem="local" code="GLUMON" displayName="GLUCOSE (POC)" /> <statusCode code="completed" /> <component> <observation moodCode="EVN" classCode="OBS"> <templateId root= "840.1.643105.01.28.22.4.2" /> <id nullFlavor="NA" /> < code codeSystem="local" code="GLUMON" displayName="GLUCOSE (POC)" /> < statusCode code="completed" /> <effectiveTime value="795005476837" /> <value unit="mg/dL" xsi:type="PQ" value="101" /> < interpretationCode codeSystem="local" code="*" /> <referenceRange> <observationRange> <text>70-99</text> </ observationRange> </referenceRange> </observation> </ component> </organizer> </entry> <entry> <organizer moodCode="EVN" classCode="BATTERY"> <templateId root="840.1.555680.01.28.22.4.1" /> <id nullFlavor="NA" /> <code codeSystem="local" code="GLUMON" displayName="GLUCOSE (POC)" /> <statusCode code="completed" /> < component> <observation moodCode="EVN" classCode="OBS"> < templateId root="840.1.865377.01.28.22.4.2" /> <id nullFlavor="NA " /> <code codeSystem="local" code="GLUMON" displayName="GLUCOSE (POC) " /> <statusCode code="completed" /> <effectiveTime value= "226105056004" /> <value unit="mg/dL" xsi:type="PQ" value="103" /> <interpretationCode codeSystem="local" code="*" /> < referenceRange> <observationRange> <text>70-99</text> </observationRange> </referenceRange> </observation> </component> </organizer> </entry> <entry> <organizer moodCode="EVN " classCode="BATTERY"> <templateId root="216.840.1.494679.10..22.4.1" / > <id nullFlavor="NA" /> <code codeSystem="local" code="GLUMON" displayName="GLUCOSE (POC)" /> <statusCode code="completed" /> < component> <observation moodCode="EVN" classCode="OBS"> < templateId root="216.840.1.296603.10..22.4.2" /> <id nullFlavor="NA " /> <code codeSystem="local" code="GLUMON" displayName="GLUCOSE (POC) " /> <statusCode code="completed" /> <effectiveTime value= "827495203841" /> <value unit="mg/dL" xsi:type="PQ" value="111" /> <interpretationCode codeSystem="local" code="*" /> < referenceRange> <observationRange> <text>70-99</text> </observationRange> </referenceRange> </observation> </component> </organizer> </entry> <entry> <organizer moodCode="EVN " classCode="BATTERY"> <templateId root="2.16.840.1.209093.10..22.4.1" / > <id nullFlavor="NA" /> <code codeSystem="local" code="PTTH" displayName="PTT HEPARIN PROTOCOLS" /> <statusCode code="completed" /> <component> <observation moodCode="EVN" classCode="OBS"> < templateId root="2.16.840.1.694624.10..22.4.2" /> <id nullFlavor="NA " /> <code codeSystem="local" code="PTT" displayName="PARTIAL THROMBOPLASTIN TIME" /> <statusCode code="completed" /> < effectiveTime value="304472689119" /> <value unit="sec" xsi:type="PQ" value="39" /> <referenceRange> <observationRange> <text>23-39</text> </observationRange> </referenceRange > </observation> </component> </organizer> </entry> <entry> <organizer moodCode="EVN" classCode="BATTERY"> <templateId root= "2.16.840.1.113843.10..22.4.1" /> <id nullFlavor="NA" /> <code codeSystem="local" code="CREATT" displayName="CREATININE" /> <statusCode code="completed" /> <component> <observation moodCode="EVN" classCode="OBS"> <templateId root="2.16.840.1.251462.10.20.22.4.2" /> <id nullFlavor="NA" /> <code codeSystem="local" code="eGFR" displayName="EST GFR (MDRD)" /> <statusCode code="completed" /> <effectiveTime value="030686926901" /> <value unit="mL/min" xsi:type ="PQ" value="> 60" /> <referenceRange> <observationRange > <text>> 59</text> </observationRange> </ referenceRange> </observation> </component> <component> <observation moodCode="EVN" classCode="OBS"> <templateId root= "216.840.1.207819.10..22.4.2" /> <id nullFlavor="NA" /> < code codeSystem="local" code="CREAT" displayName="CREATININE" /> < statusCode code="completed" /> <effectiveTime value="639589385271" /> <value unit="mg/dL" xsi:type="PQ" value="0.5" /> < interpretationCode codeSystem="local" code="*" /> <referenceRange> <observationRange> <text>0.6-1.0</text> </ observationRange> </referenceRange> </observation> </ component> </organizer> </entry> <entry> <organizer moodCode="EVN" classCode="BATTERY"> <templateId root="16.840.1.872671.10..22.4.1" /> <id nullFlavor="NA" /> <code codeSystem="local" code="GLUMON" displayName="GLUCOSE (POC)" /> <statusCode code="completed" /> < component> <observation moodCode="EVN" classCode="OBS"> < templateId root="16.840.1.119674.10..22.4.2" /> <id nullFlavor="NA " /> <code codeSystem="local" code="GLUMON" displayName="GLUCOSE (POC) " /> <statusCode code="completed" /> <effectiveTime value= "598685887945" /> <value unit="mg/dL" xsi:type="PQ" value="108" /> <interpretationCode codeSystem="local" code="*" /> < referenceRange> <observationRange> <text>70-99</text> </observationRange> </referenceRange> </observation> </component> </organizer> </entry> <entry> <organizer moodCode="EVN " classCode="BATTERY"> <templateId root="16.840.1.034651.10..4.1" / > <id nullFlavor="NA" /> <code codeSystem="local" code="GLUMON" displayName="GLUCOSE (POC)" /> <statusCode code="completed" /> < component> <observation moodCode="EVN" classCode="OBS"> < templateId root="840.1.132909.01.28.22.4.2" /> <id nullFlavor="NA " /> <code codeSystem="local" code="GLUMON" displayName="GLUCOSE (POC) " /> <statusCode code="completed" /> <effectiveTime value= "769602644312" /> <value unit="mg/dL" xsi:type="PQ" value="79" /> <referenceRange> <observationRange> <text>70-99</ text> </observationRange> </referenceRange> </ observation> </component> </organizer> </entry> <entry> <organizer moodCode="EVN" classCode="BATTERY"> <templateId root= "840.1.125713.01.28.22.4.1" /> <id nullFlavor="NA" /> <code codeSystem="local" code="GLUMON" displayName="GLUCOSE (POC)" /> < statusCode code="completed" /> <component> <observation moodCode= "EVN" classCode="OBS"> <templateId root="05.27.840.1.610483.10..4.2 " /> <id nullFlavor="NA" /> <code codeSystem="local" code= "GLUMON" displayName="GLUCOSE (POC)" /> <statusCode code="completed" / > <effectiveTime value="906123983721" /> <value unit="mg/dL" xsi:type="PQ" value="109" /> <interpretationCode codeSystem="local" code="*" /> <referenceRange> <observationRange> <text>70-99</text> </observationRange> </referenceRange> </observation> </component> </organizer> </entry> <entry> < organizer moodCode="EVN" classCode="BATTERY"> <templateId root= "05.27.840.1.056237.10.22.4.1" /> <id nullFlavor="NA" /> <code codeSystem="local" code="GLUMON" displayName="GLUCOSE (POC)" /> < statusCode code="completed" /> <component> <observation moodCode= "EVN" classCode="OBS"> <templateId root="05.27.840.1.081968.10..22.4.2 " /> <id nullFlavor="NA" /> <code codeSystem="local" code= "GLUMON" displayName="GLUCOSE (POC)" /> <statusCode code="completed" / > <effectiveTime value="064279994641" /> <value unit="mg/dL" xsi:type="PQ" value="86" /> <referenceRange> < observationRange> <text>70-99</text> </observationRange > </referenceRange> </observation> </component> </ organizer> </entry> <entry> <organizer moodCode="EVN" classCode="BATTERY"> <templateId root="05.27.840.1.089742.10.22.4.1" /> <id nullFlavor= "NA" /> <code codeSystem="local" code="GLUMON" displayName="GLUCOSE (POC)" /> <statusCode code="completed" /> <component> <observation moodCode="EVN" classCode="OBS"> <templateId root= "05.27.840.1.155080.01.28.22.4.2" /> <id nullFlavor="NA" /> < code codeSystem="local" code="GLUMON" displayName="GLUCOSE (POC)" /> < statusCode code="completed" /> <effectiveTime value="338665699426" /> <value unit="mg/dL" xsi:type="PQ" value="89" /> < referenceRange> <observationRange> <text>70-99</text> </observationRange> </referenceRange> </observation> </component> </organizer> </entry> <entry> <organizer moodCode="EVN " classCode="BATTERY"> <templateId root="2.16.840.1.412790.10..22.4.1" / > <id nullFlavor="NA" /> <code codeSystem="local" code="GLUMON" displayName="GLUCOSE (POC)" /> <statusCode code="completed" /> < component> <observation moodCode="EVN" classCode="OBS"> < templateId root="2.16.840.1.692353.10..22.4.2" /> <id nullFlavor="NA " /> <code codeSystem="local" code="GLUMON" displayName="GLUCOSE (POC) " /> <statusCode code="completed" /> <effectiveTime value= "809583653481" /> <value unit="mg/dL" xsi:type="PQ" value="104" /> <interpretationCode codeSystem="local" code="*" /> < referenceRange> <observationRange> <text>70-99</text> </observationRange> </referenceRange> </observation> </component> </organizer> </entry> <entry> <organizer moodCode="EVN " classCode="BATTERY"> <templateId root="216.840.1.480305.10.4.1" / > <id nullFlavor="NA" /> <code codeSystem="local" code="GLUMON" displayName="GLUCOSE (POC)" /> <statusCode code="completed" /> < component> <observation moodCode="EVN" classCode="OBS"> < templateId root="05.27.840.1.534916.01.28.22.4.2" /> <id nullFlavor="NA " /> <code codeSystem="local" code="GLUMON" displayName="GLUCOSE (POC) " /> <statusCode code="completed" /> <effectiveTime value= "222030418734" /> <value unit="mg/dL" xsi:type="PQ" value="95" /> <referenceRange> <observationRange> <text>70-99</ text> </observationRange> </referenceRange> </ observation> </component> </organizer> </entry> <entry> <organizer moodCode="EVN" classCode="BATTERY"> <templateId root= "05.27.840.1.236328.01.28.22.4.1" /> <id nullFlavor="NA" /> <code codeSystem="local" code="METAB" displayName="METABOLIC PANEL, BASIC" /> < statusCode code="completed" /> <component> <observation moodCode= "EVN" classCode="OBS"> <templateId root="05.27.840.1.017117.01.28.22.4.2 " /> <id nullFlavor="NA" /> <code codeSystem="local" code="K" displayName="POTASSIUM" /> <statusCode code="completed" /> < effectiveTime value="813230444824" /> <value unit="mmol/L" xsi:type="PQ " value="3.9" /> <referenceRange> <observationRange> <text>3.5-5.3</text> </observationRange> </ referenceRange> </observation> </component> <component> <observation moodCode="EVN" classCode="OBS"> <templateId root= "216.840.1.356501.10.4.2" /> <id nullFlavor="NA" /> < code codeSystem="local" code="eGFR" displayName="EST GFR (MDRD)" /> < statusCode code="completed" /> <effectiveTime value="" /> <value unit="mL/min" xsi:type="PQ" value="> 60" /> < referenceRange> <observationRange> <text>> 59</text> </observationRange> </referenceRange> </observation > </component> <component> <observation moodCode="EVN" classCode="OBS"> <templateId root="05.27.840.1.838065.01.28.22.4.2" /> <id nullFlavor="NA" /> <code codeSystem="local" code="GAP" displayName="ANION GAP" /> <statusCode code="completed" /> < effectiveTime value="" /> <value unit="mmol/L" xsi:type="PQ " value="11" /> <referenceRange> <observationRange> <text>5-15</text> </observationRange> </referenceRange > </observation> </component> <component> <observation moodCode="EVN" classCode="OBS"> <templateId root= "216.840.1.694769.01.28.22.4.2" /> <id nullFlavor="NA" /> < code codeSystem="local" code="eCrCl" displayName="EST CrCl (CG)" /> < statusCode code="completed" /> <effectiveTime value="" /> <value unit="mL/min" xsi:type="PQ" value="> 60" /> < referenceRange> <observationRange> <text>> 59</text> </observationRange> </referenceRange> </observation > </component> <component> <observation moodCode="EVN" classCode="OBS"> <templateId root="16.840.1.399373.10.20.22.4.2" /> <id nullFlavor="NA" /> <code codeSystem="local" code="GLU" displayName="GLUCOSE" /> <statusCode code="completed" /> < effectiveTime value="" /> <value unit="mg/dL" xsi:type="PQ " value="96" /> <referenceRange> <observationRange> <text>70-99</text> </observationRange> </ referenceRange> </observation> </component> <component> <observation moodCode="EVN" classCode="OBS"> <templateId root= "05.27.840.1.987179.10..22.4.2" /> <id nullFlavor="NA" /> < code codeSystem="local" code="CA" displayName="CALCIUM" /> <statusCode code="completed" /> <effectiveTime value="005620927435" /> < value unit="mg/dL" xsi:type="PQ" value="8.2" /> <interpretationCode codeSystem="local" code="*" /> <referenceRange> < observationRange> <text>8.5-10.1</text> </ observationRange> </referenceRange> </observation> </ component> <component> <observation moodCode="EVN" classCode="OBS"> <templateId root="05.27.840.1.544888.10.20.22.4.2" /> <id nullFlavor="NA" /> <code codeSystem="local" code="BUN" displayName= "BLOOD UREA NITROGEN" /> <statusCode code="completed" /> < effectiveTime value="" /> <value unit="mg/dL" xsi:type="PQ " value="5" /> <interpretationCode codeSystem="local" code="*" /> <referenceRange> <observationRange> <text>7-20</ text> </observationRange> </referenceRange> </ observation> </component> <component> <observation moodCode= "EVN" classCode="OBS"> <templateId root="2.16.840.1.680617.10..22.4.2 " /> <id nullFlavor="NA" /> <code codeSystem="local" code= "CREAT" displayName="CREATININE" /> <statusCode code="completed" /> <effectiveTime value="" /> <value unit="mg/dL" xsi: type="PQ" value="0.6" /> <referenceRange> <observationRange > <text>0.6-1.0</text> </observationRange> </ referenceRange> </observation> </component> <component> <observation moodCode="EVN" classCode="OBS"> <templateId root= "2.16.840.1.173487.10..22.4.2" /> <id nullFlavor="NA" /> < code codeSystem="local" code="NA" displayName="SODIUM" /> <statusCode code="completed" /> <effectiveTime value="403487488494" /> < value unit="mmol/L" xsi:type="PQ" value="139" /> <referenceRange> <observationRange> <text>135-148</text> </ observationRange> </referenceRange> </observation> </ component> <component> <observation moodCode="EVN" classCode="OBS"> <templateId root="840.1.218886.10.22.4.2" /> <id nullFlavor="NA" /> <code codeSystem="local" code="CL" displayName= "CHLORIDE" /> <statusCode code="completed" /> <effectiveTime value="" /> <value unit="mmol/L" xsi:type="PQ" value="105" /> <referenceRange> <observationRange> <text>98 -110</text> </observationRange> </referenceRange> </ observation> </component> <component> <observation moodCode= "EVN" classCode="OBS"> <templateId root="840.1.933322.01.28.22.4.2 " /> <id nullFlavor="NA" /> <code codeSystem="local" code="CO2 " displayName="CARBON DIOXIDE" /> <statusCode code="completed" /> <effectiveTime value="128394300737" /> <value unit="mmol/L" xsi: type="PQ" value="23" /> <referenceRange> <observationRange> <text>21-32</text> </observationRange> </ referenceRange> </observation> </component> </organizer> </entry > <entry> <organizer moodCode="EVN" classCode="BATTERY"> <templateId root="840.1.856166.1022.4.1" /> <id nullFlavor="NA" /> <code codeSystem="local" code="CBC" displayName="CBC" /> <statusCode code= "completed" /> <component> <observation moodCode="EVN" classCode= "OBS"> <templateId root="840.1.208704.102022.4.2" /> < id nullFlavor="NA" /> <code codeSystem="local" code="CBCCOM" displayName="COMMENT" /> <statusCode code="completed" /> < effectiveTime value="" /> <value unit="" xsi:type="PQ" value="REVIEWED" /> <referenceRange> <observationRange> <text /> </observationRange> </referenceRange> </observation> </component> <component> <observation moodCode="EVN" classCode="OBS"> <templateId root= "2.16.840.1.467750.10.20.22.4.2" /> <id nullFlavor="NA" /> < code codeSystem="local" code="MCH" displayName="MEAN CELL HGB" /> < statusCode code="completed" /> <effectiveTime value="" /> <value unit="pg" xsi:type="PQ" value="25.0" /> < interpretationCode codeSystem="local" code="*" /> <referenceRange> <observationRange> <text>27.0-33.0</text> </ observationRange> </referenceRange> </observation> </ component> <component> <observation moodCode="EVN" classCode="OBS"> <templateId root="216.840.1.704126.10.20.22.4.2" /> <id nullFlavor="NA" /> <code codeSystem="local" code="MCHC" displayName= "MEAN CELL HGB CONCENTRATION" /> <statusCode code="completed" /> <effectiveTime value="" /> <value unit="g/dL" xsi:type= "PQ" value="29.9" /> <interpretationCode codeSystem="local" code="*" / > <referenceRange> <observationRange> <text> 32.0-37.0</text> </observationRange> </referenceRange> </observation> </component> <component> <observation moodCode="EVN" classCode="OBS"> <templateId root= "16.840.1.048011.10.22.4.2" /> <id nullFlavor="NA" /> < code codeSystem="local" code="MCV" displayName="MEAN CELL VOLUME" /> < statusCode code="completed" /> <effectiveTime value="" /> <value unit="fl" xsi:type="PQ" value="83.6" /> <referenceRange > <observationRange> <text>80.0-100.0</text> </observationRange> </referenceRange> </observation> </ component> <component> <observation moodCode="EVN" classCode="OBS"> <templateId root="05.27.840.1.942809.01.28.22.4.2" /> <id nullFlavor="NA" /> <code codeSystem="local" code="RBC" displayName=" RED BLOOD CELL" /> <statusCode code="completed" /> < effectiveTime value="" /> <value unit="m/cumm" xsi:type="PQ " value="3.04" /> <interpretationCode codeSystem="local" code="*" /> <referenceRange> <observationRange> <text>4.00- 6.00</text> </observationRange> </referenceRange> </ observation> </component> <component> <observation moodCode= "EVN" classCode="OBS"> <templateId root="05.27.840.1.594113.10.22.4.2 " /> <id nullFlavor="NA" /> <code codeSystem="local" code="RDW " displayName="RED CELL DISTRIBUTION WIDTH" /> <statusCode code= "completed" /> <effectiveTime value="" /> <value unit="%" xsi:type="PQ" value="16.2" /> <interpretationCode codeSystem="local" code="*" /> <referenceRange> < observationRange> <text>11.0-15.6</text> </ observationRange> </referenceRange> </observation> </ component> <component> <observation moodCode="EVN" classCode="OBS"> <templateId root="216.840.1.805333.10.2022.4.2" /> <id nullFlavor="NA" /> <code codeSystem="local" code="WBC" displayName= "WHITE BLOOD CELL" /> <statusCode code="completed" /> < effectiveTime value="111715594420" /> <value unit="k/cumm" xsi:type="PQ " value="4.7" /> <interpretationCode codeSystem="local" code="*" /> <referenceRange> <observationRange> <text>5.0- 10.0</text> </observationRange> </referenceRange> </ observation> </component> <component> <observation moodCode= "EVN" classCode="OBS"> <templateId root="216.840.1.165423.10.20.22.4.2 " /> <id nullFlavor="NA" /> <code codeSystem="local" code= "HGBT" displayName="HEMOGLOBIN" /> <statusCode code="completed" /> <effectiveTime value="368351044096" /> <value unit="gm/dL" xsi: type="PQ" value="7.6" /> <interpretationCode codeSystem="local" code="* " /> <referenceRange> <observationRange> <text> 12.0-16.0</text> </observationRange> </referenceRange> </observation> </component> <component> <observation moodCode="EVN" classCode="OBS"> <templateId root= "05.27.840.1.338843.10.20.22.4.2" /> <id nullFlavor="NA" /> < code codeSystem="local" code="HCTT" displayName="HEMATOCRIT" /> < statusCode code="completed" /> <effectiveTime value="563246748590" /> <value unit="%" xsi:type="PQ" value="25.4" /> < interpretationCode codeSystem="local" code="*" /> <referenceRange> <observationRange> <text>37.0-47.0</text> </ observationRange> </referenceRange> </observation> </ component> <component> <observation moodCode="EVN" classCode="OBS"> <templateId root="05.27.840.1.228870.10.4.2" /> <id nullFlavor="NA" /> <code codeSystem="local" code="PLT" displayName= "PLATELET COUNT" /> <statusCode code="completed" /> < effectiveTime value="" /> <value unit="k/cumm" xsi:type="PQ " value="Note" /> <referenceRange> <observationRange> <text>150-400</text> </observationRange> </ referenceRange> </observation> </component> </organizer> </entry > <entry> <organizer moodCode="EVN" classCode="BATTERY"> <templateId root="05.27.840.1.361654.10.20.22.4.1" /> <id nullFlavor="NA" /> <code codeSystem="local" code="UA" displayName="URINALYSIS, ROUTINE" /> < statusCode code="completed" /> <component> <observation moodCode= "EVN" classCode="OBS"> <templateId root="05.27.840.1.566358.01.28.22.4.2 " /> <id nullFlavor="NA" /> <code codeSystem="local" code= "LEUESU" displayName="UA LEUKOCYTE ESTERASE DIPSTICK" /> <statusCode code="completed" /> <effectiveTime value="" /> < value unit="" xsi:type="PQ" value="NEGATIVE" /> <referenceRange> <observationRange> <text>NEGATIVE</text> </ observationRange> </referenceRange> </observation> </ component> <component> <observation moodCode="EVN" classCode="OBS"> <templateId root="216.840.1.861274.01.28.22.4.2" /> <id nullFlavor="NA" /> <code codeSystem="local" code="NITRIU" displayName= "UA NITRITE DIPSTICK" /> <statusCode code="completed" /> < effectiveTime value="" /> <value unit="" xsi:type="PQ" value="NEGATIVE" /> <referenceRange> <observationRange> <text>NEGATIVE</text> </observationRange> </ referenceRange> </observation> </component> <component> <observation moodCode="EVN" classCode="OBS"> <templateId root= "216.840.1.631254.01.28.22.4.2" /> <id nullFlavor="NA" /> < code codeSystem="local" code="PROTEIU" displayName="UA PROTEIN DIPSTICK" /> <statusCode code="completed" /> <effectiveTime value= "" /> <value unit="" xsi:type="PQ" value="NEGATIVE" /> <referenceRange> <observationRange> <text>NEGATIVE </text> </observationRange> </referenceRange> </ observation> </component> <component> <observation moodCode= "EVN" classCode="OBS"> <templateId root="16.840.1.906562.10..22.4.2 " /> <id nullFlavor="NA" /> <code codeSystem="local" code= "DGLUU" displayName="UA GLUCOSE DIPSTICK" /> <statusCode code= "completed" /> <effectiveTime value="" /> <value unit="" xsi:type="PQ" value="NEGATIVE" /> <referenceRange> < observationRange> <text>NEGATIVE</text> </ observationRange> </referenceRange> </observation> </ component> <component> <observation moodCode="EVN" classCode="OBS"> <templateId root="05.27.840.1.786802.10...4.2" /> <id nullFlavor="NA" /> <code codeSystem="local" code="KETONU" displayName= "UA KETONE DIPSTICK" /> <statusCode code="completed" /> < effectiveTime value="" /> <value unit="" xsi:type="PQ" value="2+" /> <interpretationCode codeSystem="local" code="*" /> <referenceRange> <observationRange> <text>NEGATIVE</ text> </observationRange> </referenceRange> </ observation> </component> <component> <observation moodCode= "EVN" classCode="OBS"> <templateId root="05.27.840.1.802069.10..22.4.2 " /> <id nullFlavor="NA" /> <code codeSystem="local" code= "UROBILU" displayName="UA UROBILINOGEN DIPSTICK" /> <statusCode code= "completed" /> <effectiveTime value="" /> <value unit="" xsi:type="PQ" value="2+" /> <interpretationCode codeSystem= "local" code="*" /> <referenceRange> <observationRange> <text>NORMAL</text> </observationRange> </ referenceRange> </observation> </component> <component> <observation moodCode="EVN" classCode="OBS"> <templateId root= "05.27.840.1.872892.10..4.2" /> <id nullFlavor="NA" /> < code codeSystem="local" code="BILU" displayName="UA BILIRUBIN DIPSTICK" /> <statusCode code="completed" /> <effectiveTime value=" " /> <value unit="" xsi:type="PQ" value="NEGATIVE" /> < referenceRange> <observationRange> <text>NEGATIVE</text > </observationRange> </referenceRange> </observation > </component> <component> <observation moodCode="EVN" classCode="OBS"> <templateId root="840.1.307219.10.4.2" /> <id nullFlavor="NA" /> <code codeSystem="local" code="MAKENZIE" displayName="UA BLOOD DIPSTICK" /> <statusCode code="completed" /> <effectiveTime value="" /> <value unit="" xsi:type= "PQ" value="NEGATIVE" /> <referenceRange> <observationRange > <text>NEGATIVE</text> </observationRange> </ referenceRange> </observation> </component> <component> <observation moodCode="EVN" classCode="OBS"> <templateId root= "05.27.840.1.885690.1022.4.2" /> <id nullFlavor="NA" /> < code codeSystem="local" code="SPGRU" displayName="UA SPECIFIC GRAVITY" /> <statusCode code="completed" /> <effectiveTime value="703070357197 " /> <value unit="" xsi:type="PQ" value="1.021" /> < referenceRange> <observationRange> <text>1.015-1.025</ text> </observationRange> </referenceRange> </ observation> </component> <component> <observation moodCode= "EVN" classCode="OBS"> <templateId root="05.27.840.1.992447.01.28.22.4.2 " /> <id nullFlavor="NA" /> <code codeSystem="local" code="SEBLE " displayName="UR PH" /> <statusCode code="completed" /> < effectiveTime value="" /> <value unit="" xsi:type="PQ" value="6.0" /> <referenceRange> <observationRange> <text>5.0-7.0</text> </observationRange> </ referenceRange> </observation> </component> </organizer> </entry > <entry> <organizer moodCode="EVN" classCode="BATTERY"> <templateId root="840.1.559978.01.28.22.4.1" /> <id nullFlavor="NA" /> <code codeSystem="local" code="GLUMON" displayName="GLUCOSE (POC)" /> < statusCode code="completed" /> <component> <observation moodCode= "EVN" classCode="OBS"> <templateId root="05.27.840.1.945045.01.28.22.4.2 " /> <id nullFlavor="NA" /> <code codeSystem="local" code= "GLUMON" displayName="GLUCOSE (POC)" /> <statusCode code="completed" / > <effectiveTime value="785790480847" /> <value unit="mg/dL" xsi:type="PQ" value="90" /> <referenceRange> < observationRange> <text>70-99</text> </observationRange > </referenceRange> </observation> </component> </ organizer> </entry> <entry> <organizer moodCode="EVN" classCode="BATTERY"> <templateId root="16.840.1.417309.10..22.4.1" /> <id nullFlavor= "NA" /> <code codeSystem="local" code="GLUMON" displayName="GLUCOSE (POC)" /> <statusCode code="completed" /> <component> <observation moodCode="EVN" classCode="OBS"> <templateId root= "16.840.1.952576.10...4.2" /> <id nullFlavor="NA" /> < code codeSystem="local" code="GLUMON" displayName="GLUCOSE (POC)" /> < statusCode code="completed" /> <effectiveTime value="286250036579" /> <value unit="mg/dL" xsi:type="PQ" value="109" /> < interpretationCode codeSystem="local" code="*" /> <referenceRange> <observationRange> <text>70-99</text> </ observationRange> </referenceRange> </observation> </ component> </organizer> </entry> <entry> <organizer moodCode="EVN" classCode="BATTERY"> <templateId root="05.27.840.1.952640.10...4.1" /> <id nullFlavor="NA" /> <code codeSystem="local" code="GLUMON" displayName="GLUCOSE (POC)" /> <statusCode code="completed" /> < component> <observation moodCode="EVN" classCode="OBS"> < templateId root="05.27.840.1.423036.10..22.4.2" /> <id nullFlavor="NA " /> <code codeSystem="local" code="GLUMON" displayName="GLUCOSE (POC) " /> <statusCode code="completed" /> <effectiveTime value= "950838426254" /> <value unit="mg/dL" xsi:type="PQ" value="89" /> <referenceRange> <observationRange> <text>70-99</ text> </observationRange> </referenceRange> </ observation> </component> </organizer> </entry> <entry> <organizer moodCode="EVN" classCode="BATTERY"> <templateId root= "216.840.1.508085.10..22.4.1" /> <id nullFlavor="NA" /> <code codeSystem="local" code="GLUMON" displayName="GLUCOSE (POC)" /> < statusCode code="completed" /> <component> <observation moodCode= "EVN" classCode="OBS"> <templateId root="2.16.840.1.058592.10..22.4.2 " /> <id nullFlavor="NA" /> <code codeSystem="local" code= "GLUMON" displayName="GLUCOSE (POC)" /> <statusCode code="completed" / > <effectiveTime value="624524616802" /> <value unit="mg/dL" xsi:type="PQ" value="102" /> <interpretationCode codeSystem="local" code="*" /> <referenceRange> <observationRange> <text>70-99</text> </observationRange> </referenceRange> </observation> </component> </organizer> </entry> <entry> < organizer moodCode="EVN" classCode="BATTERY"> <templateId root= "216.840.1.897202.01.28.22.4.1" /> <id nullFlavor="NA" /> <code codeSystem="local" code="GLUMON" displayName="GLUCOSE (POC)" /> < statusCode code="completed" /> <component> <observation moodCode= "EVN" classCode="OBS"> <templateId root="05.27.840.1.867383.01.28.22.4.2 " /> <id nullFlavor="NA" /> <code codeSystem="local" code= "GLUMON" displayName="GLUCOSE (POC)" /> <statusCode code="completed" / > <effectiveTime value="525351069309" /> <value unit="mg/dL" xsi:type="PQ" value="100" /> <interpretationCode codeSystem="local" code="*" /> <referenceRange> <observationRange> <text>70-99</text> </observationRange> </referenceRange> </observation> </component> </organizer> </entry> <entry> < organizer moodCode="EVN" classCode="BATTERY"> <templateId root= "840.1.726396.01.28.22.4.1" /> <id nullFlavor="NA" /> <code codeSystem="local" code="GLUMON" displayName="GLUCOSE (POC)" /> < statusCode code="completed" /> <component> <observation moodCode= "EVN" classCode="OBS"> <templateId root="840.1.393426.01.28.22.4.2 " /> <id nullFlavor="NA" /> <code codeSystem="local" code= "GLUMON" displayName="GLUCOSE (POC)" /> <statusCode code="completed" / > <effectiveTime value="491684773523" /> <value unit="mg/dL" xsi:type="PQ" value="104" /> <interpretationCode codeSystem="local" code="*" /> <referenceRange> <observationRange> <text>70-99</text> </observationRange> </referenceRange> </observation> </component> </organizer> </entry> <entry> < organizer moodCode="EVN" classCode="BATTERY"> <templateId root= "16.840.1.779193.10..22.4.1" /> <id nullFlavor="NA" /> <code codeSystem="local" code="GLUMON" displayName="GLUCOSE (POC)" /> < statusCode code="completed" /> <component> <observation moodCode= "EVN" classCode="OBS"> <templateId root="16.840.1.862505.10..22.4.2 " /> <id nullFlavor="NA" /> <code codeSystem="local" code= "GLUMON" displayName="GLUCOSE (POC)" /> <statusCode code="completed" / > <effectiveTime value="415191071390" /> <value unit="mg/dL" xsi:type="PQ" value="102" /> <interpretationCode codeSystem="local" code="*" /> <referenceRange> <observationRange> <text>70-99</text> </observationRange> </referenceRange> </observation> </component> </organizer> </entry> <entry> < organizer moodCode="EVN" classCode="BATTERY"> <templateId root= "16.840.1.437149.10...4.1" /> <id nullFlavor="NA" /> <code codeSystem="local" code="GLUMON" displayName="GLUCOSE (POC)" /> < statusCode code="completed" /> <component> <observation moodCode= "EVN" classCode="OBS"> <templateId root="2.16.840.1.036023.10..22.4.2 " /> <id nullFlavor="NA" /> <code codeSystem="local" code= "GLUMON" displayName="GLUCOSE (POC)" /> <statusCode code="completed" / > <effectiveTime value="091570121834" /> <value unit="mg/dL" xsi:type="PQ" value="102" /> <interpretationCode codeSystem="local" code="*" /> <referenceRange> <observationRange> <text>70-99</text> </observationRange> </referenceRange> </observation> </component> </organizer> </entry> <entry> < organizer moodCode="EVN" classCode="BATTERY"> <templateId root= "16.840.1.556770.10..22.4.1" /> <id nullFlavor="NA" /> <code codeSystem="local" code="METAB" displayName="METABOLIC PANEL, BASIC" /> < statusCode code="completed" /> <component> <observation moodCode= "EVN" classCode="OBS"> <templateId root="16.840.1.239527.10..22.4.2 " /> <id nullFlavor="NA" /> <code codeSystem="local" code="K" displayName="POTASSIUM" /> <statusCode code="completed" /> < effectiveTime value="180690204234" /> <value unit="mmol/L" xsi:type="PQ " value="4.0" /> <referenceRange> <observationRange> <text>3.5-5.3</text> </observationRange> </ referenceRange> </observation> </component> <component> <observation moodCode="EVN" classCode="OBS"> <templateId root= "05.27.840.1.695406.01.28.22.4.2" /> <id nullFlavor="NA" /> < code codeSystem="local" code="eGFR" displayName="EST GFR (MDRD)" /> < statusCode code="completed" /> <effectiveTime value="" /> <value unit="mL/min" xsi:type="PQ" value="> 60" /> < referenceRange> <observationRange> <text>> 59</text> </observationRange> </referenceRange> </observation > </component> <component> <observation moodCode="EVN" classCode="OBS"> <templateId root="2.16.840.1.676682.01.28.22.4.2" /> <id nullFlavor="NA" /> <code codeSystem="local" code="GAP" displayName="ANION GAP" /> <statusCode code="completed" /> < effectiveTime value="" /> <value unit="mmol/L" xsi:type="PQ " value="6" /> <referenceRange> <observationRange> <text>5-15</text> </observationRange> </referenceRange > </observation> </component> <component> <observation moodCode="EVN" classCode="OBS"> <templateId root= "2.16.840.1.272156.10.4.2" /> <id nullFlavor="NA" /> < code codeSystem="local" code="eCrCl" displayName="EST CrCl (CG)" /> < statusCode code="completed" /> <effectiveTime value="" /> <value unit="mL/min" xsi:type="PQ" value="> 60" /> < referenceRange> <observationRange> <text>> 59</text> </observationRange> </referenceRange> </observation > </component> <component> <observation moodCode="EVN" classCode="OBS"> <templateId root="16.840.1.575494.10...4.2" /> <id nullFlavor="NA" /> <code codeSystem="local" code="GLU" displayName="GLUCOSE" /> <statusCode code="completed" /> < effectiveTime value="" /> <value unit="mg/dL" xsi:type="PQ " value="96" /> <referenceRange> <observationRange> <text>70-99</text> </observationRange> </ referenceRange> </observation> </component> <component> <observation moodCode="EVN" classCode="OBS"> <templateId root= "05.27.840.1.145814.10..4.2" /> <id nullFlavor="NA" /> < code codeSystem="local" code="CA" displayName="CALCIUM" /> <statusCode code="completed" /> <effectiveTime value="" /> < value unit="mg/dL" xsi:type="PQ" value="8.1" /> <interpretationCode codeSystem="local" code="*" /> <referenceRange> < observationRange> <text>8.5-10.1</text> </ observationRange> </referenceRange> </observation> </ component> <component> <observation moodCode="EVN" classCode="OBS"> <templateId root="05.27.840.1.406154.10..22.4.2" /> <id nullFlavor="NA" /> <code codeSystem="local" code="BUN" displayName= "BLOOD UREA NITROGEN" /> <statusCode code="completed" /> < effectiveTime value="" /> <value unit="mg/dL" xsi:type="PQ " value="4" /> <interpretationCode codeSystem="local" code="*" /> <referenceRange> <observationRange> <text>7-20</ text> </observationRange> </referenceRange> </ observation> </component> <component> <observation moodCode= "EVN" classCode="OBS"> <templateId root="216.840.1.689969.10.4.2 " /> <id nullFlavor="NA" /> <code codeSystem="local" code= "CREAT" displayName="CREATININE" /> <statusCode code="completed" /> <effectiveTime value="249743916519" /> <value unit="mg/dL" xsi: type="PQ" value="0.5" /> <interpretationCode codeSystem="local" code="* " /> <referenceRange> <observationRange> <text> 0.6-1.0</text> </observationRange> </referenceRange> </observation> </component> <component> <observation moodCode= "EVN" classCode="OBS"> <templateId root="05.27.840.1.310412.01.28.22.4.2 " /> <id nullFlavor="NA" /> <code codeSystem="local" code="NA " displayName="SODIUM" /> <statusCode code="completed" /> < effectiveTime value="281765970567" /> <value unit="mmol/L" xsi:type="PQ " value="138" /> <referenceRange> <observationRange> <text>135-148</text> </observationRange> </ referenceRange> </observation> </component> <component> <observation moodCode="EVN" classCode="OBS"> <templateId root= "16.840.1.678014....4.2" /> <id nullFlavor="NA" /> < code codeSystem="local" code="CL" displayName="CHLORIDE" /> < statusCode code="completed" /> <effectiveTime value="" /> <value unit="mmol/L" xsi:type="PQ" value="107" /> < referenceRange> <observationRange> <text>98-110</text> </observationRange> </referenceRange> </observation> </component> <component> <observation moodCode="EVN" classCode ="OBS"> <templateId root="16.840.1.272729.10.4.2" /> < id nullFlavor="NA" /> <code codeSystem="local" code="CO2" displayName= "CARBON DIOXIDE" /> <statusCode code="completed" /> < effectiveTime value="" /> <value unit="mmol/L" xsi:type="PQ " value="25" /> <referenceRange> <observationRange> <text>21-32</text> </observationRange> </ referenceRange> </observation> </component> </organizer> </entry > <entry> <organizer moodCode="EVN" classCode="BATTERY"> <templateId root="16.840.1.455589.01.28.22.4.1" /> <id nullFlavor="NA" /> <code codeSystem="local" code="CBC" displayName="CBC" /> <statusCode code= "completed" /> <component> <observation moodCode="EVN" classCode= "OBS"> <templateId root="16.840.1.207886.01.28.22.4.2" /> < id nullFlavor="NA" /> <code codeSystem="local" code="MCH" displayName= "MEAN CELL HGB" /> <statusCode code="completed" /> < effectiveTime value="" /> <value unit="pg" xsi:type="PQ" value="25.4" /> <interpretationCode codeSystem="local" code="*" /> <referenceRange> <observationRange> <text>27.0- 33.0</text> </observationRange> </referenceRange> </ observation> </component> <component> <observation moodCode= "EVN" classCode="OBS"> <templateId root="05.27.840.1.482474.10.22.4.2 " /> <id nullFlavor="NA" /> <code codeSystem="local" code= "MCHC" displayName="MEAN CELL HGB CONCENTRATION" /> <statusCode code= "completed" /> <effectiveTime value="" /> <value unit="g/dL" xsi:type="PQ" value="30.0" /> <interpretationCode codeSystem="local" code="*" /> <referenceRange> < observationRange> <text>32.0-37.0</text> </ observationRange> </referenceRange> </observation> </ component> <component> <observation moodCode="EVN" classCode="OBS"> <templateId root="05.27.840.1.859296.10..22.4.2" /> <id nullFlavor="NA" /> <code codeSystem="local" code="MCV" displayName= "MEAN CELL VOLUME" /> <statusCode code="completed" /> < effectiveTime value="" /> <value unit="fl" xsi:type="PQ" value="84.6" /> <referenceRange> <observationRange> <text>80.0-100.0</text> </observationRange> </ referenceRange> </observation> </component> <component> <observation moodCode="EVN" classCode="OBS"> <templateId root= "840.1.641692.10..22.4.2" /> <id nullFlavor="NA" /> < code codeSystem="local" code="RBC" displayName="RED BLOOD CELL" /> < statusCode code="completed" /> <effectiveTime value="" /> <value unit="m/cumm" xsi:type="PQ" value="2.72" /> < interpretationCode codeSystem="local" code="*" /> <referenceRange> <observationRange> <text>4.00-6.00</text> </ observationRange> </referenceRange> </observation> </ component> <component> <observation moodCode="EVN" classCode="OBS"> <templateId root="05.27.840.1.016711.10..4.2" /> <id nullFlavor="NA" /> <code codeSystem="local" code="RDW" displayName=" RED CELL DISTRIBUTION WIDTH" /> <statusCode code="completed" /> <effectiveTime value="" /> <value unit="%" xsi:type= "PQ" value="16.4" /> <interpretationCode codeSystem="local" code="*" / > <referenceRange> <observationRange> <text> 11.0-15.6</text> </observationRange> </referenceRange> </observation> </component> <component> <observation moodCode="EVN" classCode="OBS"> <templateId root= "05.27.840.1.409071.10..4.2" /> <id nullFlavor="NA" /> < code codeSystem="local" code="WBC" displayName="WHITE BLOOD CELL" /> < statusCode code="completed" /> <effectiveTime value="" /> <value unit="k/cumm" xsi:type="PQ" value="3.9" /> < interpretationCode codeSystem="local" code="*" /> <referenceRange> <observationRange> <text>5.0-10.0</text> </ observationRange> </referenceRange> </observation> </ component> <component> <observation moodCode="EVN" classCode="OBS"> <templateId root="05.27.840.1.152400.01.28.22.4.2" /> <id nullFlavor="NA" /> <code codeSystem="local" code="HGBT" displayName= "HEMOGLOBIN" /> <statusCode code="completed" /> < effectiveTime value="036865923152" /> <value unit="gm/dL" xsi:type="PQ " value="6.9" /> <interpretationCode codeSystem="local" code="*" /> <referenceRange> <observationRange> <text>12.0- 16.0</text> </observationRange> </referenceRange> </ observation> </component> <component> <observation moodCode= "EVN" classCode="OBS"> <templateId root="05.27.840.1.706840.01.28.22.4.2 " /> <id nullFlavor="NA" /> <code codeSystem="local" code= "HCTT" displayName="HEMATOCRIT" /> <statusCode code="completed" /> <effectiveTime value="926915679490" /> <value unit="%" xsi: type="PQ" value="23.0" /> <interpretationCode codeSystem="local" code= "*" /> <referenceRange> <observationRange> < text>37.0-47.0</text> </observationRange> </referenceRange> </observation> </component> <component> <observation moodCode="EVN" classCode="OBS"> <templateId root= "05.27.830.1.744703.10..22.4.2" /> <id nullFlavor="NA" /> < code codeSystem="local" code="PLT" displayName="PLATELET COUNT" /> < statusCode code="completed" /> <effectiveTime value="234035459085" /> <value unit="k/cumm" xsi:type="PQ" value="349" /> < referenceRange> <observationRange> <text>150-400</text> </observationRange> </referenceRange> </observation > </component> </organizer> </entry> <entry> <organizer moodCode= "EVN" classCode="BATTERY"> <templateId root="05.27.840.1.450544.10...4.1 " /> <id nullFlavor="NA" /> <code codeSystem="local" code="GLUMON" displayName="GLUCOSE (POC)" /> <statusCode code="completed" /> < component> <observation moodCode="EVN" classCode="OBS"> < templateId root="16.840.1.991456.10..22.4.2" /> <id nullFlavor="NA " /> <code codeSystem="local" code="GLUMON" displayName="GLUCOSE (POC) " /> <statusCode code="completed" /> <effectiveTime value= "957907548104" /> <value unit="mg/dL" xsi:type="PQ" value="97" /> <referenceRange> <observationRange> <text>70-99</ text> </observationRange> </referenceRange> </ observation> </component> </organizer> </entry> <entry> <organizer moodCode="EVN" classCode="BATTERY"> <templateId root= "16.840.1.302081.10..22.4.1" /> <id nullFlavor="NA" /> <code codeSystem="local" code="GLUMON" displayName="GLUCOSE (POC)" /> < statusCode code="completed" /> <component> <observation moodCode= "EVN" classCode="OBS"> <templateId root="16.840.1.896415.10..22.4.2 " /> <id nullFlavor="NA" /> <code codeSystem="local" code= "GLUMON" displayName="GLUCOSE (POC)" /> <statusCode code="completed" / > <effectiveTime value="210373855681" /> <value unit="mg/dL" xsi:type="PQ" value="106" /> <interpretationCode codeSystem="local" code="*" /> <referenceRange> <observationRange> <text>70-99</text> </observationRange> </referenceRange> </observation> </component> </organizer> </entry> <entry> < organizer moodCode="EVN" classCode="BATTERY"> <templateId root= "840.1.631986.10..22.4.1" /> <id nullFlavor="NA" /> <code codeSystem="local" code="ADRIAN" displayName="FERRITIN" /> <statusCode code= "completed" /> <component> <observation moodCode="EVN" classCode= "OBS"> <templateId root="05.27.840.1.344838.10..22.4.2" /> < id nullFlavor="NA" /> <code codeSystem="local" code="ADRIAN" displayName= "FERRITIN" /> <statusCode code="completed" /> <effectiveTime value="640328733234" /> <value unit="ng/mL" xsi:type="PQ" value="124" / > <referenceRange> <observationRange> <text>8- 252</text> </observationRange> </referenceRange> </ observation> </component> </organizer> </entry> <entry> <organizer moodCode="EVN" classCode="BATTERY"> <templateId root= "05.27.840.1.308170.10..22.4.1" /> <id nullFlavor="NA" /> <code codeSystem="local" code="GLUMON" displayName="GLUCOSE (POC)" /> < statusCode code="completed" /> <component> <observation moodCode= "EVN" classCode="OBS"> <templateId root="840.1.308795...4.2 " /> <id nullFlavor="NA" /> <code codeSystem="local" code= "GLUMON" displayName="GLUCOSE (POC)" /> <statusCode code="completed" / > <effectiveTime value="148884812836" /> <value unit="mg/dL" xsi:type="PQ" value="93" /> <referenceRange> < observationRange> <text>70-99</text> </observationRange > </referenceRange> </observation> </component> </ organizer> </entry> <entry> <organizer moodCode="EVN" classCode="BATTERY"> <templateId root="05.27.840.1.938556...4.1" /> <id nullFlavor= "NA" /> <code codeSystem="local" code="GLUMON" displayName="GLUCOSE (POC)" /> <statusCode code="completed" /> <component> <observation moodCode="EVN" classCode="OBS"> <templateId root= "05.27.840.1.114186.10..22.4.2" /> <id nullFlavor="NA" /> < code codeSystem="local" code="GLUMON" displayName="GLUCOSE (POC)" /> < statusCode code="completed" /> <effectiveTime value="152359932909" /> <value unit="mg/dL" xsi:type="PQ" value="105" /> < interpretationCode codeSystem="local" code="*" /> <referenceRange> <observationRange> <text>70-99</text> </ observationRange> </referenceRange> </observation> </ component> </organizer> </entry> <entry> <organizer moodCode="EVN" classCode="BATTERY"> <templateId root="16.840.1.347516.10..22.4.1" /> <id nullFlavor="NA" /> <code codeSystem="local" code="CBC" displayName ="CBC" /> <statusCode code="completed" /> <component> < observation moodCode="EVN" classCode="OBS"> <templateId root= "05.27.840.1.561596.10..22.4.2" /> <id nullFlavor="NA" /> < code codeSystem="local" code="MCH" displayName="MEAN CELL HGB" /> < statusCode code="completed" /> <effectiveTime value="678503276746" /> <value unit="pg" xsi:type="PQ" value="25.1" /> < interpretationCode codeSystem="local" code="*" /> <referenceRange> <observationRange> <text>27.0-33.0</text> </ observationRange> </referenceRange> </observation> </ component> <component> <observation moodCode="EVN" classCode="OBS"> <templateId root="05.27.840.1.661485.10.20.22.4.2" /> <id nullFlavor="NA" /> <code codeSystem="local" code="MCHC" displayName= "MEAN CELL HGB CONCENTRATION" /> <statusCode code="completed" /> <effectiveTime value="" /> <value unit="g/dL" xsi:type= "PQ" value="30.4" /> <interpretationCode codeSystem="local" code="*" / > <referenceRange> <observationRange> <text> 32.0-37.0</text> </observationRange> </referenceRange> </observation> </component> <component> <observation moodCode="EVN" classCode="OBS"> <templateId root= "216.840.1.328441.10.20.22.4.2" /> <id nullFlavor="NA" /> < code codeSystem="local" code="MCV" displayName="MEAN CELL VOLUME" /> < statusCode code="completed" /> <effectiveTime value="" /> <value unit="fl" xsi:type="PQ" value="82.6" /> <referenceRange > <observationRange> <text>80.0-100.0</text> </observationRange> </referenceRange> </observation> </ component> <component> <observation moodCode="EVN" classCode="OBS"> <templateId root="216.840.1.764806.10.20.22.4.2" /> <id nullFlavor="NA" /> <code codeSystem="local" code="RBC" displayName=" RED BLOOD CELL" /> <statusCode code="completed" /> < effectiveTime value="" /> <value unit="m/cumm" xsi:type="PQ " value="3.11" /> <interpretationCode codeSystem="local" code="*" /> <referenceRange> <observationRange> <text>4.00- 6.00</text> </observationRange> </referenceRange> </ observation> </component> <component> <observation moodCode= "EVN" classCode="OBS"> <templateId root="216.840.1.899919.10.22.4.2 " /> <id nullFlavor="NA" /> <code codeSystem="local" code="RDW " displayName="RED CELL DISTRIBUTION WIDTH" /> <statusCode code= "completed" /> <effectiveTime value="" /> <value unit="%" xsi:type="PQ" value="15.9" /> <interpretationCode codeSystem="local" code="*" /> <referenceRange> < observationRange> <text>11.0-15.6</text> </ observationRange> </referenceRange> </observation> </ component> <component> <observation moodCode="EVN" classCode="OBS"> <templateId root="16.840.1.801342.01.28.22.4.2" /> <id nullFlavor="NA" /> <code codeSystem="local" code="WBC" displayName= "WHITE BLOOD CELL" /> <statusCode code="completed" /> < effectiveTime value="" /> <value unit="k/cumm" xsi:type="PQ " value="5.3" /> <referenceRange> <observationRange> <text>5.0-10.0</text> </observationRange> </ referenceRange> </observation> </component> <component> <observation moodCode="EVN" classCode="OBS"> <templateId root= "216.840.1.565193.10.22.4.2" /> <id nullFlavor="NA" /> < code codeSystem="local" code="HGBT" displayName="HEMOGLOBIN" /> < statusCode code="completed" /> <effectiveTime value="" /> <value unit="gm/dL" xsi:type="PQ" value="7.8" /> < interpretationCode codeSystem="local" code="*" /> <referenceRange> <observationRange> <text>12.0-16.0</text> </ observationRange> </referenceRange> </observation> </ component> <component> <observation moodCode="EVN" classCode="OBS"> <templateId root="216.840.1.128167.10.20.22.4.2" /> <id nullFlavor="NA" /> <code codeSystem="local" code="HCTT" displayName= "HEMATOCRIT" /> <statusCode code="completed" /> < effectiveTime value="331887439900" /> <value unit="%" xsi:type="PQ " value="25.7" /> <interpretationCode codeSystem="local" code="*" /> <referenceRange> <observationRange> <text>37.0- 47.0</text> </observationRange> </referenceRange> </ observation> </component> <component> <observation moodCode= "EVN" classCode="OBS"> <templateId root="216.840.1.236360.10..4.2 " /> <id nullFlavor="NA" /> <code codeSystem="local" code="PLT " displayName="PLATELET COUNT" /> <statusCode code="completed" /> <effectiveTime value="316009499190" /> <value unit="k/cumm" xsi: type="PQ" value="372" /> <referenceRange> <observationRange > <text>150-400</text> </observationRange> </ referenceRange> </observation> </component> </organizer> </entry > <entry> <organizer moodCode="EVN" classCode="BATTERY"> <templateId root="16.840.1.489665.10..22.4.1" /> <id nullFlavor="NA" /> <code codeSystem="local" code="GLUMON" displayName="GLUCOSE (POC)" /> < statusCode code="completed" /> <component> <observation moodCode= "EVN" classCode="OBS"> <templateId root="05.27.840.1.310517.01.28.22.4.2 " /> <id nullFlavor="NA" /> <code codeSystem="local" code= "GLUMON" displayName="GLUCOSE (POC)" /> <statusCode code="completed" / > <effectiveTime value="582792280237" /> <value unit="mg/dL" xsi:type="PQ" value="94" /> <referenceRange> < observationRange> <text>70-99</text> </observationRange > </referenceRange> </observation> </component> </ organizer> </entry> <entry> <organizer moodCode="EVN" classCode="BATTERY"> <templateId root="840.1.915347.01.28.22.4.1" /> <id nullFlavor= "NA" /> <code codeSystem="local" code="GLUMON" displayName="GLUCOSE (POC)" /> <statusCode code="completed" /> <component> <observation moodCode="EVN" classCode="OBS"> <templateId root= "05.27.840.1.447252.10..22.4.2" /> <id nullFlavor="NA" /> < code codeSystem="local" code="GLUMON" displayName="GLUCOSE (POC)" /> < statusCode code="completed" /> <effectiveTime value="342303300193" /> <value unit="mg/dL" xsi:type="PQ" value="95" /> < referenceRange> <observationRange> <text>70-99</text> </observationRange> </referenceRange> </observation> </component> </organizer> </entry> <entry> <organizer moodCode="EVN " classCode="BATTERY"> <templateId root="05.27.840.1.387460.10..22.4.1" / > <id nullFlavor="NA" /> <code codeSystem="local" code="GLUMON" displayName="GLUCOSE (POC)" /> <statusCode code="completed" /> < component> <observation moodCode="EVN" classCode="OBS"> < templateId root="840.1.136906.01.28.22.4.2" /> <id nullFlavor="NA " /> <code codeSystem="local" code="GLUMON" displayName="GLUCOSE (POC) " /> <statusCode code="completed" /> <effectiveTime value= "180734135231" /> <value unit="mg/dL" xsi:type="PQ" value="94" /> <referenceRange> <observationRange> <text>70-99</ text> </observationRange> </referenceRange> </ observation> </component> </organizer> </entry> <entry> <organizer moodCode="EVN" classCode="BATTERY"> <templateId root= "840.1.240604.01.28.22.4.1" /> <id nullFlavor="NA" /> <code codeSystem="local" code="GLUMON" displayName="GLUCOSE (POC)" /> < statusCode code="completed" /> <component> <observation moodCode= "EVN" classCode="OBS"> <templateId root="05.27.840.1.747522.10..22.4.2 " /> <id nullFlavor="NA" /> <code codeSystem="local" code= "GLUMON" displayName="GLUCOSE (POC)" /> <statusCode code="completed" / > <effectiveTime value="511050930432" /> <value unit="mg/dL" xsi:type="PQ" value="115" /> <interpretationCode codeSystem="local" code="*" /> <referenceRange> <observationRange> <text>70-99</text> </observationRange> </referenceRange> </observation> </component> </organizer> </entry> <entry> < organizer moodCode="EVN" classCode="BATTERY"> <templateId root= "216.840.1.829455.10.20.22.4.1" /> <id nullFlavor="NA" /> <code codeSystem="local" code="GLUMON" displayName="GLUCOSE (POC)" /> < statusCode code="completed" /> <component> <observation moodCode= "EVN" classCode="OBS"> <templateId root="16.840.1.657101.10.20.22.4.2 " /> <id nullFlavor="NA" /> <code codeSystem="local" code= "GLUMON" displayName="GLUCOSE (POC)" /> <statusCode code="completed" / > <effectiveTime value="153895785374" /> <value unit="mg/dL" xsi:type="PQ" value="106" /> <interpretationCode codeSystem="local" code="*" /> <referenceRange> <observationRange> <text>70-99</text> </observationRange> </referenceRange> </observation> </component> </organizer> </entry> <entry> < organizer moodCode="EVN" classCode="BATTERY"> <templateId root= "16.840.1.792714.10.20.22.4.1" /> <id nullFlavor="NA" /> <code codeSystem="local" code="GLUMON" displayName="GLUCOSE (POC)" /> < statusCode code="completed" /> <component> <observation moodCode= "EVN" classCode="OBS"> <templateId root="16.840.1.935358.10...4.2 " /> <id nullFlavor="NA" /> <code codeSystem="local" code= "GLUMON" displayName="GLUCOSE (POC)" /> <statusCode code="completed" / > <effectiveTime value="391460039443" /> <value unit="mg/dL" xsi:type="PQ" value="101" /> <interpretationCode codeSystem="local" code="*" /> <referenceRange> <observationRange> <text>70-99</text> </observationRange> </referenceRange> </observation> </component> </organizer> </entry> <entry> < organizer moodCode="EVN" classCode="BATTERY"> <templateId root= "05.27.840.1.288103.10..4.1" /> <id nullFlavor="NA" /> <code codeSystem="local" code="GLUMON" displayName="GLUCOSE (POC)" /> < statusCode code="completed" /> <component> <observation moodCode= "EVN" classCode="OBS"> <templateId root="05.27.840.1.002317.10..22.4.2 " /> <id nullFlavor="NA" /> <code codeSystem="local" code= "GLUMON" displayName="GLUCOSE (POC)" /> <statusCode code="completed" / > <effectiveTime value="882706868279" /> <value unit="mg/dL" xsi:type="PQ" value="105" /> <interpretationCode codeSystem="local" code="*" /> <referenceRange> <observationRange> <text>70-99</text> </observationRange> </referenceRange> </observation> </component> </organizer> </entry> <entry> < organizer moodCode="EVN" classCode="BATTERY"> <templateId root= "05.27.840.1.865945.10..22.4.1" /> <id nullFlavor="NA" /> <code codeSystem="local" code="GLUMON" displayName="GLUCOSE (POC)" /> < statusCode code="completed" /> <component> <observation moodCode= "EVN" classCode="OBS"> <templateId root="840.1.805983...4.2 " /> <id nullFlavor="NA" /> <code codeSystem="local" code= "GLUMON" displayName="GLUCOSE (POC)" /> <statusCode code="completed" / > <effectiveTime value="647116766990" /> <value unit="mg/dL" xsi:type="PQ" value="111" /> <interpretationCode codeSystem="local" code="*" /> <referenceRange> <observationRange> <text>70-99</text> </observationRange> </referenceRange> </observation> </component> </organizer> </entry> <entry> < organizer moodCode="EVN" classCode="BATTERY"> <templateId root= "05.27.840.1.422998.10..22.4.1" /> <id nullFlavor="NA" /> <code codeSystem="local" code="GLUMON" displayName="GLUCOSE (POC)" /> < statusCode code="completed" /> <component> <observation moodCode= "EVN" classCode="OBS"> <templateId root="840.1.109920.10..4.2 " /> <id nullFlavor="NA" /> <code codeSystem="local" code= "GLUMON" displayName="GLUCOSE (POC)" /> <statusCode code="completed" / > <effectiveTime value="662405276890" /> <value unit="mg/dL" xsi:type="PQ" value="105" /> <interpretationCode codeSystem="local" code="*" /> <referenceRange> <observationRange> <text>70-99</text> </observationRange> </referenceRange> </observation> </component> </organizer> </entry> <entry> < organizer moodCode="EVN" classCode="BATTERY"> <templateId root= "2.16.840.1.755481.10.20.22.4.1" /> <id nullFlavor="NA" /> <code codeSystem="local" code="MRSAS" displayName="MRSA SURVEILLANCE SCREEN" /> < statusCode code="completed" /> <component> <observation moodCode= "EVN" classCode="OBS"> <templateId root="2.16.840.1.680552.10.20.22.4.2 " /> <id nullFlavor="NA" /> <code codeSystem="local" code="MB " displayName="Microbiology" /> <statusCode code="completed" /> <effectiveTime value="700791463824" /> <value xsi:type="ST" value="< pre><b>MRSA SURVEILLANCE SCREEN</b> See BelowMRSA SURVEILLANCE SCREEN(F) Sanam Date/Time: 04/21/2015 06:45 Crow Date/Time: 04/22/2015 06:54SOURCE: ANTERIOR NARESSPEC DESC: NNO METHICILLIN RESISTANT STAPH [facility]ATEDS[facility]ISMARCK[address] [facility] [place] [address]</pre> " /> <referenceRange> <observationRange> <text /> </observationRange> </referenceRange> </ observation> </component> </organizer> </entry> <entry> <organizer moodCode="EVN" classCode="BATTERY"> <templateId root= "05.27.840.1.515106.10.4.1" /> <id nullFlavor="NA" /> <code codeSystem="local" code="GLUMON" displayName="GLUCOSE (POC)" /> < statusCode code="completed" /> <component> <observation moodCode= "EVN" classCode="OBS"> <templateId root="840.1.986892.01.28.22.4.2 " /> <id nullFlavor="NA" /> <code codeSystem="local" code= "GLUMON" displayName="GLUCOSE (POC)" /> <statusCode code="completed" / > <effectiveTime value="679216738154" /> <value unit="mg/dL" xsi:type="PQ" value="104" /> <interpretationCode codeSystem="local" code="*" /> <referenceRange> <observationRange> <text>70-99</text> </observationRange> </referenceRange> </observation> </component> </organizer> </entry> <entry> < organizer moodCode="EVN" classCode="BATTERY"> <templateId root= "840.1.305672.01.28.22.4.1" /> <id nullFlavor="NA" /> <code codeSystem="local" code="GLUMON" displayName="GLUCOSE (POC)" /> < statusCode code="completed" /> <component> <observation moodCode= "EVN" classCode="OBS"> <templateId root="05.27.840.1.611240.10.22.4.2 " /> <id nullFlavor="NA" /> <code codeSystem="local" code= "GLUMON" displayName="GLUCOSE (POC)" /> <statusCode code="completed" / > <effectiveTime value="892947096386" /> <value unit="mg/dL" xsi:type="PQ" value="99" /> <referenceRange> < observationRange> <text>70-99</text> </observationRange > </referenceRange> </observation> </component> </ organizer> </entry> <entry> <organizer moodCode="EVN" classCode="BATTERY"> <templateId root="216.840.1.648976.10.20.22.4.1" /> <id nullFlavor= "NA" /> <code codeSystem="local" code="GLUMON" displayName="GLUCOSE (POC)" /> <statusCode code="completed" /> <component> <observation moodCode="EVN" classCode="OBS"> <templateId root= "216.840.1.836326.10.20.22.4.2" /> <id nullFlavor="NA" /> < code codeSystem="local" code="GLUMON" displayName="GLUCOSE (POC)" /> < statusCode code="completed" /> <effectiveTime value="150078386919" /> <value unit="mg/dL" xsi:type="PQ" value="107" /> < interpretationCode codeSystem="local" code="*" /> <referenceRange> <observationRange> <text>70-99</text> </ observationRange> </referenceRange> </observation> </ component> </organizer> </entry> <entry> <organizer moodCode="EVN" classCode="BATTERY"> <templateId root="216.840.1.996038.10.20.22.4.1" /> <id nullFlavor="NA" /> <code codeSystem="local" code="65964-0" displayName="Complete blood count (CBC) with automated white blood cell (WBC) differential" /> <statusCode code="completed" /> <component> < observation moodCode="EVN" classCode="OBS"> <templateId root= "2.16.840.1.598957.10.20.22.4.2" /> <id nullFlavor="NA" /> < code codeSystem="local" code="6690-2" displayName="Blood leukocytes automated count (number/volume)" /> <statusCode code="completed" /> < effectiveTime value="291822247131" /> <value unit="10*3/uL" xsi:type= "PQ" value="10.8" /> <referenceRange> <observationRange> <text>4.3-11.0</text> </observationRange> </ referenceRange> </observation> </component> <component> <observation moodCode="EVN" classCode="OBS"> <templateId root= "05.27.840.1.464786.10.2022.4.2" /> <id nullFlavor="NA" /> < code codeSystem="local" code="789-8" displayName="Blood erythrocytes automated count (number/volume)" /> <statusCode code="completed" /> < effectiveTime value="980965177756" /> <value unit="10*6/uL" xsi:type= "PQ" value="4.88" /> <referenceRange> <observationRange> <text>4.35-5.85</text> </observationRange> </ referenceRange> </observation> </component> <component> <observation moodCode="EVN" classCode="OBS"> <templateId root= "16.840.1.735251.10.20.22.4.2" /> <id nullFlavor="NA" /> < code codeSystem="local" code="68725-7" displayName="Venous blood hemoglobin measurement (mass/volume)" /> <statusCode code="completed" /> <effectiveTime value="301707606921" /> <value unit="g/dL" xsi:type="PQ " value="11.3" /> <interpretationCode codeSystem="local" code="" /> <referenceRange> <observationRange> <text>11.5- 16.0</text> </observationRange> </referenceRange> </ observation> </component> <component> <observation moodCode= "EVN" classCode="OBS"> <templateId root="2.16.840.1.907678.10.20.22.4.2 " /> <id nullFlavor="NA" /> <code codeSystem="local" code= "86995-3" displayName="Blood hematocrit (volume fraction)" /> < statusCode code="completed" /> <effectiveTime value="980376149593" /> <value unit="%" xsi:type="PQ" value="36" /> < referenceRange> <observationRange> <text>35-52</text> </observationRange> </referenceRange> </observation> </component> <component> <observation moodCode="EVN" classCode= "OBS"> <templateId root="2.16.840.1.014580.10.20.22.4.2" /> < id nullFlavor="NA" /> <code codeSystem="local" code="787-2" displayName ="Automated erythrocyte mean corpuscular volume" /> <statusCode code= "completed" /> <effectiveTime value="471043589498" /> <value unit="[foz_us]" xsi:type="PQ" value="74" /> <interpretationCode codeSystem="local" code="" /> <referenceRange> < observationRange> <text>80-99</text> </observationRange > </referenceRange> </observation> </component> < component> <observation moodCode="EVN" classCode="OBS"> < templateId root="216.840.1.625336.10.20.22.4.2" /> <id nullFlavor="NA " /> <code codeSystem="local" code="785-6" displayName="Automated erythrocyte mean corpuscular hemoglobin (mass per erythrocyte)" /> < statusCode code="completed" /> <effectiveTime value="381014038007" /> <value unit="pg" xsi:type="PQ" value="23" /> < interpretationCode codeSystem="local" code="" /> <referenceRange> <observationRange> <text>25-34</text> </ observationRange> </referenceRange> </observation> </ component> <component> <observation moodCode="EVN" classCode="OBS"> <templateId root="05.27.840.1.861447.10..22.4.2" /> <id nullFlavor="NA" /> <code codeSystem="local" code="786-4" displayName= "Automated erythrocyte mean corpuscular hemoglobin concentration measurement ( mass/volume)" /> <statusCode code="completed" /> < effectiveTime value="584035031814" /> <value unit="g/dL" xsi:type="PQ" value="31" /> <interpretationCode codeSystem="local" code="" /> <referenceRange> <observationRange> <text>32-36</ text> </observationRange> </referenceRange> </ observation> </component> <component> <observation moodCode= "EVN" classCode="OBS"> <templateId root="216.840.1.744571.10.20.22.4.2 " /> <id nullFlavor="NA" /> <code codeSystem="local" code="788 -0" displayName="Automated erythrocyte distribution width ratio" /> < statusCode code="completed" /> <effectiveTime value="287306286722" /> <value unit="%" xsi:type="PQ" value="18.2" /> < interpretationCode codeSystem="local" code="" /> <referenceRange> <observationRange> <text>10.0-14.5</text> </ observationRange> </referenceRange> </observation> </ component> <component> <observation moodCode="EVN" classCode="OBS"> <templateId root="2.16.840.1.964533.10..22.4.2" /> <id nullFlavor="NA" /> <code codeSystem="local" code="777-3" displayName= "Automated blood platelet count (count/volume)" /> <statusCode code= "completed" /> <effectiveTime value="956777023702" /> <value unit="10*3/uL" xsi:type="PQ" value="459" /> <interpretationCode codeSystem="local" code="" /> <referenceRange> < observationRange> <text>130-400</text> </ observationRange> </referenceRange> </observation> </ component> <component> <observation moodCode="EVN" classCode="OBS"> <templateId root="2.16.840.1.695357.10.2022.4.2" /> <id nullFlavor="NA" /> <code codeSystem="local" code="62523-7" displayName= "Automated blood platelet mean volume measurement" /> <statusCode code= "completed" /> <effectiveTime value="956247668694" /> <value unit="[foz_us]" xsi:type="PQ" value="9.7" /> <referenceRange> <observationRange> <text>7.4-10.4</text> </ observationRange> </referenceRange> </observation> </ component> <component> <observation moodCode="EVN" classCode="OBS"> <templateId root="2.16.840.1.454196.10..4.2" /> <id nullFlavor="NA" /> <code codeSystem="local" code="770-8" displayName= "Automated blood neutrophils/100 leukocytes" /> <statusCode code= "completed" /> <effectiveTime value="415010794143" /> <value unit="%" xsi:type="PQ" value="55" /> <referenceRange> < observationRange> <text>42-75</text> </observationRange > </referenceRange> </observation> </component> < component> <observation moodCode="EVN" classCode="OBS"> < templateId root="2.16.840.1.505362.10.4.2" /> <id nullFlavor="NA " /> <code codeSystem="local" code="736-9" displayName="Automated blood lymphocytes/100 leukocytes" /> <statusCode code="completed" /> <effectiveTime value="924634488378" /> <value unit="%" xsi: type="PQ" value="37" /> <referenceRange> <observationRange> <text>12-44</text> </observationRange> </ referenceRange> </observation> </component> <component> <observation moodCode="EVN" classCode="OBS"> <templateId root= "2.16.840.1.872022.10.20..4.2" /> <id nullFlavor="NA" /> < code codeSystem="local" code="58436-3" displayName="Blood monocytes/100 leukocytes" /> <statusCode code="completed" /> <effectiveTime value="330957723533" /> <value unit="%" xsi:type="PQ" value="6" /> <referenceRange> <observationRange> <text>0-12 </text> </observationRange> </referenceRange> </ observation> </component> <component> <observation moodCode= "EVN" classCode="OBS"> <templateId root="2.16.840.1.486648.10.20.22.4.2 " /> <id nullFlavor="NA" /> <code codeSystem="local" code="713 -8" displayName="Automated blood eosinophils/100 leukocytes" /> < statusCode code="completed" /> <effectiveTime value="357358569285" /> <value unit="%" xsi:type="PQ" value="2" /> <referenceRange > <observationRange> <text>0-10</text> </ observationRange> </referenceRange> </observation> </ component> <component> <observation moodCode="EVN" classCode="OBS"> <templateId root="2.16.840.1.669907.10.20.22.4.2" /> <id nullFlavor="NA" /> <code codeSystem="local" code="706-2" displayName= "Automated blood basophils/100 leukocytes" /> <statusCode code= "completed" /> <effectiveTime value="211906908397" /> <value unit="%" xsi:type="PQ" value="0" /> <referenceRange> < observationRange> <text>0-10</text> </observationRange> </referenceRange> </observation> </component> < component> <observation moodCode="EVN" classCode="OBS"> < templateId root="2.16.840.1.510789.10.20.22.4.2" /> <id nullFlavor="NA " /> <code codeSystem="local" code="751-8" displayName="Blood neutrophils automated count (number/volume)" /> <statusCode code= "completed" /> <effectiveTime value="462944330777" /> <value unit="10*3" xsi:type="PQ" value="5.9" /> <referenceRange> < observationRange> <text>1.8-7.8</text> </ observationRange> </referenceRange> </observation> </ component> <component> <observation moodCode="EVN" classCode="OBS"> <templateId root="2.16.840.1.993709.10.20.22.4.2" /> <id nullFlavor="NA" /> <code codeSystem="local" code="731-0" displayName= "Blood lymphocytes automated count (number/volume)" /> <statusCode code ="completed" /> <effectiveTime value="155086837588" /> <value unit="10*3" xsi:type="PQ" value="4.0" /> <referenceRange> < observationRange> <text>1.0-4.0</text> </ observationRange> </referenceRange> </observation> </ component> <component> <observation moodCode="EVN" classCode="OBS"> <templateId root="2.16.840.1.940354.10.20.22.4.2" /> <id nullFlavor="NA" /> <code codeSystem="local" code="742-7" displayName= "Blood monocytes automated count (number/volume)" /> <statusCode code= "completed" /> <effectiveTime value="972117982304" /> <value unit="10*3" xsi:type="PQ" value="0.6" /> <referenceRange> < observationRange> <text>0.0-1.0</text> </ observationRange> </referenceRange> </observation> </ component> <component> <observation moodCode="EVN" classCode="OBS"> <templateId root="2.16.840.1.723495.10..22.4.2" /> <id nullFlavor="NA" /> <code codeSystem="local" code="711-2" displayName= "Automated eosinophil count" /> <statusCode code="completed" /> <effectiveTime value="930576123660" /> <value unit="10*3/uL" xsi: type="PQ" value="0.2" /> <referenceRange> <observationRange > <text>0.0-0.3</text> </observationRange> </ referenceRange> </observation> </component> <component> <observation moodCode="EVN" classCode="OBS"> <templateId root= "2.16.840.1.574572.10..4.2" /> <id nullFlavor="NA" /> < code codeSystem="local" code="704-7" displayName="Automated blood basophil count (count/volume)" /> <statusCode code="completed" /> < effectiveTime value="279115869225" /> <value unit="10*3/uL" xsi:type= "PQ" value="0.0" /> <referenceRange> <observationRange> <text>0.0-0.1</text> </observationRange> </ referenceRange> </observation> </component> </organizer> </entry > <entry> <organizer moodCode="EVN" classCode="BATTERY"> <templateId root="2.16.840.1.230175.10..22.4.1" /> <id nullFlavor="NA" /> <code codeSystem="local" code="38274-1" displayName="Complete blood count (CBC) with automated white blood cell (WBC) differential" /> <statusCode code= "completed" /> <component> <observation moodCode="EVN" classCode= "OBS"> <templateId root="2.16.840.1.915850.10.20.22.4.2" /> < id nullFlavor="NA" /> <code codeSystem="local" code="6690-2" displayName="Blood leukocytes automated count (number/volume)" /> < statusCode code="completed" /> <effectiveTime value="" /> <value unit="10*3/uL" xsi:type="PQ" value="9.4" /> < referenceRange> <observationRange> <text>4.3-11.0</text > </observationRange> </referenceRange> </observation > </component> <component> <observation moodCode="EVN" classCode="OBS"> <templateId root="2.16.840.1.984022.10.22.4.2" /> <id nullFlavor="NA" /> <code codeSystem="local" code="789-8" displayName="Blood erythrocytes automated count (number/volume)" /> < statusCode code="completed" /> <effectiveTime value="" /> <value unit="10*6/uL" xsi:type="PQ" value="5.00" /> < referenceRange> <observationRange> <text>4.35-5.85</text > </observationRange> </referenceRange> </observation > </component> <component> <observation moodCode="EVN" classCode="OBS"> <templateId root="2.16.840.1.760596.10.20.22.4.2" /> <id nullFlavor="NA" /> <code codeSystem="local" code="17083-2 " displayName="Venous blood hemoglobin measurement (mass/volume)" /> < statusCode code="completed" /> <effectiveTime value="937943471136" /> <value unit="g/dL" xsi:type="PQ" value="11.7" /> < referenceRange> <observationRange> <text>11.5-16.0</text > </observationRange> </referenceRange> </observation > </component> <component> <observation moodCode="EVN" classCode="OBS"> <templateId root="216.840.1.837735.10..22.4.2" /> <id nullFlavor="NA" /> <code codeSystem="local" code="94439-3 " displayName="Blood hematocrit (volume fraction)" /> <statusCode code= "completed" /> <effectiveTime value="867206206088" /> <value unit="%" xsi:type="PQ" value="38" /> <referenceRange> < observationRange> <text>35-52</text> </observationRange > </referenceRange> </observation> </component> < component> <observation moodCode="EVN" classCode="OBS"> < templateId root="216.840.1.068575.10..22.4.2" /> <id nullFlavor="NA " /> <code codeSystem="local" code="787-2" displayName="Automated erythrocyte mean corpuscular volume" /> <statusCode code="completed" / > <effectiveTime value="617410877548" /> <value unit="[foz_us] " xsi:type="PQ" value="75" /> <interpretationCode codeSystem="local" code="" /> <referenceRange> <observationRange> <text>80-99</text> </observationRange> </referenceRange> </observation> </component> <component> <observation moodCode="EVN" classCode="OBS"> <templateId root= "2.16.840.1.854454.10..22.4.2" /> <id nullFlavor="NA" /> < code codeSystem="local" code="785-6" displayName="Automated erythrocyte mean corpuscular hemoglobin (mass per erythrocyte)" /> <statusCode code= "completed" /> <effectiveTime value="" /> <value unit="pg" xsi:type="PQ" value="23" /> <interpretationCode codeSystem= "local" code="" /> <referenceRange> <observationRange> <text>25-34</text> </observationRange> </ referenceRange> </observation> </component> <component> <observation moodCode="EVN" classCode="OBS"> <templateId root= "216.840.1.268042.10.22.4.2" /> <id nullFlavor="NA" /> < code codeSystem="local" code="786-4" displayName="Automated erythrocyte mean corpuscular hemoglobin concentration measurement (mass/volume)" /> < statusCode code="completed" /> <effectiveTime value="" /> <value unit="g/dL" xsi:type="PQ" value="31" /> < interpretationCode codeSystem="local" code="" /> <referenceRange> <observationRange> <text>32-36</text> </ observationRange> </referenceRange> </observation> </ component> <component> <observation moodCode="EVN" classCode="OBS"> <templateId root="216.840.1.540368.10.20.22.4.2" /> <id nullFlavor="NA" /> <code codeSystem="local" code="788-0" displayName= "Automated erythrocyte distribution width ratio" /> <statusCode code= "completed" /> <effectiveTime value="" /> <value unit="%" xsi:type="PQ" value="18.3" /> <interpretationCode codeSystem="local" code="" /> <referenceRange> < observationRange> <text>10.0-14.5</text> </ observationRange> </referenceRange> </observation> </ component> <component> <observation moodCode="EVN" classCode="OBS"> <templateId root="216.840.1.036989.10.20.22.4.2" /> <id nullFlavor="NA" /> <code codeSystem="local" code="777-3" displayName= "Automated blood platelet count (count/volume)" /> <statusCode code= "completed" /> <effectiveTime value="911790433311" /> <value unit="10*3/uL" xsi:type="PQ" value="554" /> <interpretationCode codeSystem="local" code="" /> <referenceRange> < observationRange> <text>130-400</text> </ observationRange> </referenceRange> </observation> </ component> <component> <observation moodCode="EVN" classCode="OBS"> <templateId root="2.16.840.1.531625.10.20.22.4.2" /> <id nullFlavor="NA" /> <code codeSystem="local" code="87420-1" displayName= "Automated blood platelet mean volume measurement" /> <statusCode code= "completed" /> <effectiveTime value="" /> <value unit="[foz_us]" xsi:type="PQ" value="9.7" /> <referenceRange> <observationRange> <text>7.4-10.4</text> </ observationRange> </referenceRange> </observation> </ component> <component> <observation moodCode="EVN" classCode="OBS"> <templateId root="2.16.840.1.131303.10.20.22.4.2" /> <id nullFlavor="NA" /> <code codeSystem="local" code="770-8" displayName= "Automated blood neutrophils/100 leukocytes" /> <statusCode code= "completed" /> <effectiveTime value="" /> <value unit="%" xsi:type="PQ" value="60" /> <referenceRange> < observationRange> <text>42-75</text> </observationRange > </referenceRange> </observation> </component> < component> <observation moodCode="EVN" classCode="OBS"> < templateId root="2.16.840.1.474031.10.20.22.4.2" /> <id nullFlavor="NA " /> <code codeSystem="local" code="736-9" displayName="Automated blood lymphocytes/100 leukocytes" /> <statusCode code="completed" /> <effectiveTime value="" /> <value unit="%" xsi: type="PQ" value="32" /> <referenceRange> <observationRange> <text>12-44</text> </observationRange> </ referenceRange> </observation> </component> <component> <observation moodCode="EVN" classCode="OBS"> <templateId root= "2.16.840.1.143283.10.20.22.4.2" /> <id nullFlavor="NA" /> < code codeSystem="local" code="60786-2" displayName="Blood monocytes/100 leukocytes" /> <statusCode code="completed" /> <effectiveTime value="900494978912" /> <value unit="%" xsi:type="PQ" value="5" /> <referenceRange> <observationRange> <text>0-12 </text> </observationRange> </referenceRange> </ observation> </component> <component> <observation moodCode= "EVN" classCode="OBS"> <templateId root="2.16.840.1.688725.10.20.22.4.2 " /> <id nullFlavor="NA" /> <code codeSystem="local" code="713 -8" displayName="Automated blood eosinophils/100 leukocytes" /> < statusCode code="completed" /> <effectiveTime value="138711763638" /> <value unit="%" xsi:type="PQ" value="2" /> <referenceRange > <observationRange> <text>0-10</text> </ observationRange> </referenceRange> </observation> </ component> <component> <observation moodCode="EVN" classCode="OBS"> <templateId root="2.16.840.1.286661.10...4.2" /> <id nullFlavor="NA" /> <code codeSystem="local" code="706-2" displayName= "Automated blood basophils/100 leukocytes" /> <statusCode code= "completed" /> <effectiveTime value="926880218727" /> <value unit="%" xsi:type="PQ" value="0" /> <referenceRange> < observationRange> <text>0-10</text> </observationRange> </referenceRange> </observation> </component> < component> <observation moodCode="EVN" classCode="OBS"> < templateId root="2.16.840.1.775365.10.20.22.4.2" /> <id nullFlavor="NA " /> <code codeSystem="local" code="751-8" displayName="Blood neutrophils automated count (number/volume)" /> <statusCode code= "completed" /> <effectiveTime value="074352879287" /> <value unit="10*3" xsi:type="PQ" value="4.9" /> <referenceRange> < observationRange> <text>1.8-7.8</text> </ observationRange> </referenceRange> </observation> </ component> <component> <observation moodCode="EVN" classCode="OBS"> <templateId root="2.16.840.1.827842.10.20.22.4.2" /> <id nullFlavor="NA" /> <code codeSystem="local" code="731-0" displayName= "Blood lymphocytes automated count (number/volume)" /> <statusCode code ="completed" /> <effectiveTime value="598643217329" /> <value unit="10*3" xsi:type="PQ" value="2.6" /> <referenceRange> < observationRange> <text>1.0-4.0</text> </ observationRange> </referenceRange> </observation> </ component> <component> <observation moodCode="EVN" classCode="OBS"> <templateId root="2.16.840.1.968955.10.20.22.4.2" /> <id nullFlavor="NA" /> <code codeSystem="local" code="742-7" displayName= "Blood monocytes automated count (number/volume)" /> <statusCode code= "completed" /> <effectiveTime value="963791965111" /> <value unit="10*3" xsi:type="PQ" value="0.4" /> <referenceRange> < observationRange> <text>0.0-1.0</text> </ observationRange> </referenceRange> </observation> </ component> <component> <observation moodCode="EVN" classCode="OBS"> <templateId root="16.840.1.938034.10..22.4.2" /> <id nullFlavor="NA" /> <code codeSystem="local" code="711-2" displayName= "Automated eosinophil count" /> <statusCode code="completed" /> <effectiveTime value="" /> <value unit="10*3/uL" xsi: type="PQ" value="0.2" /> <referenceRange> <observationRange > <text>0.0-0.3</text> </observationRange> </ referenceRange> </observation> </component> <component> <observation moodCode="EVN" classCode="OBS"> <templateId root= "05.27.840.1.971514.10..4.2" /> <id nullFlavor="NA" /> < code codeSystem="local" code="704-7" displayName="Automated blood basophil count (count/volume)" /> <statusCode code="completed" /> < effectiveTime value="" /> <value unit="10*3/uL" xsi:type= "PQ" value="0.0" /> <referenceRange> <observationRange> <text>0.0-0.1</text> </observationRange> </ referenceRange> </observation> </component> </organizer> </entry > <entry> <organizer moodCode="EVN" classCode="BATTERY"> <templateId root="05.27.840.1.970699.10..22.4.1" /> <id nullFlavor="NA" /> <code codeSystem="local" code="46100-2" displayName="Comprehensive metabolic panel" / > <statusCode code="completed" /> <component> <observation moodCode="EVN" classCode="OBS"> <templateId root= "840.1.831189.10.20.22.4.2" /> <id nullFlavor="NA" /> < code codeSystem="local" code="2951-2" displayName="Serum or plasma sodium measurement (moles/volume)" /> <statusCode code="completed" /> <effectiveTime value="494226505501" /> <value unit="mmol/L" xsi:type= "PQ" value="137" /> <referenceRange> <observationRange> <text>135-145</text> </observationRange> </ referenceRange> </observation> </component> <component> <observation moodCode="EVN" classCode="OBS"> <templateId root= "16.840.1.722954.10.20.22.4.2" /> <id nullFlavor="NA" /> < code codeSystem="local" code="2823-3" displayName="Serum or plasma potassium measurement (moles/volume)" /> <statusCode code="completed" /> <effectiveTime value="207574765807" /> <value unit="mmol/L" xsi:type= "PQ" value="4.4" /> <referenceRange> <observationRange> <text>3.6-5.0</text> </observationRange> </ referenceRange> </observation> </component> <component> <observation moodCode="EVN" classCode="OBS"> <templateId root= "16.840.1.760612.10.20.22.4.2" /> <id nullFlavor="NA" /> < code codeSystem="local" code="2075-0" displayName="Serum or plasma chloride measurement (moles/volume)" /> <statusCode code="completed" /> <effectiveTime value="201460505746" /> <value unit="mmol/L" xsi:type= "PQ" value="108" /> <interpretationCode codeSystem="local" code="" / > <referenceRange> <observationRange> <text>98- 107</text> </observationRange> </referenceRange> </ observation> </component> <component> <observation moodCode= "EVN" classCode="OBS"> <templateId root="216.840.1.430152.10.20.22.4.2 " /> <id nullFlavor="NA" /> <code codeSystem="local" code= "2027-12" displayName="Carbon dioxide" /> <statusCode code="completed" / > <effectiveTime value="598444130299" /> <value unit="mmol/L" xsi:type="PQ" value="19" /> <interpretationCode codeSystem="local" code ="" /> <referenceRange> <observationRange> < text>21-32</text> </observationRange> </referenceRange> </observation> </component> <component> <observation moodCode="EVN" classCode="OBS"> <templateId root= "16.840.1.604696.10...4.2" /> <id nullFlavor="NA" /> < code codeSystem="local" code="04323-0" displayName="Serum or plasma anion gap determination (moles/volume)" /> <statusCode code="completed" /> <effectiveTime value="553673942259" /> <value unit="mmol/L" xsi: type="PQ" value="10" /> <referenceRange> <observationRange> <text>5-14</text> </observationRange> </ referenceRange> </observation> </component> <component> <observation moodCode="EVN" classCode="OBS"> <templateId root= "216.840.1.176505.10.20.22.4.2" /> <id nullFlavor="NA" /> < code codeSystem="local" code="3094-0" displayName="Serum or plasma urea nitrogen measurement (mass/volume)" /> <statusCode code="completed" /> <effectiveTime value="498261170362" /> <value unit="mg/dL" xsi:type="PQ" value="8" /> <referenceRange> < observationRange> <text>7-18</text> </observationRange> </referenceRange> </observation> </component> < component> <observation moodCode="EVN" classCode="OBS"> < templateId root="2.16.840.1.058328.10.20.22.4.2" /> <id nullFlavor="NA " /> <code codeSystem="local" code="2160-0" displayName="Serum or plasma creatinine measurement (mass/volume)" /> <statusCode code= "completed" /> <effectiveTime value="285866680955" /> <value unit="mg/dL" xsi:type="PQ" value="0.73" /> <referenceRange> <observationRange> <text>0.60-1.30</text> </ observationRange> </referenceRange> </observation> </ component> <component> <observation moodCode="EVN" classCode="OBS"> <templateId root="2.16.840.1.558699.10.20.22.4.2" /> <id nullFlavor="NA" /> <code codeSystem="local" code="3097-3" displayName= "Serum or plasma urea nitrogen/creatinine mass ratio" /> <statusCode code="completed" /> <effectiveTime value="102247438313" /> < value unit="" xsi:type="PQ" value="11" /> <referenceRange> < observationRange> <text>NRG</text> </observationRange> </referenceRange> </observation> </component> < component> <observation moodCode="EVN" classCode="OBS"> < templateId root="2.16.840.1.897896.10.20.22.4.2" /> <id nullFlavor="NA " /> <code codeSystem="local" code="33231-9" displayName="Serum or plasma creatinine measurement with calculation of estimated glomerular filtration rate" /> <statusCode code="completed" /> < effectiveTime value="936976086177" /> <value unit="" xsi:type="PQ" value=">" /> <referenceRange> <observationRange> <text>NRG</text> </observationRange> </referenceRange > </observation> </component> <component> <observation moodCode="EVN" classCode="OBS"> <templateId root= "2.16.840.1.611967.10..22.4.2" /> <id nullFlavor="NA" /> < code codeSystem="local" code="2345-7" displayName="Serum or plasma glucose measurement (mass/volume)" /> <statusCode code="completed" /> <effectiveTime value="038842802448" /> <value unit="mg/dL" xsi:type="PQ " value="96" /> <referenceRange> <observationRange> <text>70-105</text> </observationRange> </ referenceRange> </observation> </component> <component> <observation moodCode="EVN" classCode="OBS"> <templateId root= "2.16.840.1.532042.10.20.22.4.2" /> <id nullFlavor="NA" /> < code codeSystem="local" code="40568-5" displayName="Serum or plasma calcium measurement (mass/volume)" /> <statusCode code="completed" /> <effectiveTime value="011871407661" /> <value unit="mg/dL" xsi:type="PQ " value="9.8" /> <referenceRange> <observationRange> <text>8.5-10.1</text> </observationRange> </ referenceRange> </observation> </component> <component> <observation moodCode="EVN" classCode="OBS"> <templateId root= "2.16.840.1.287398.10.20.22.4.2" /> <id nullFlavor="NA" /> < code codeSystem="local" code="1974-05" displayName="Serum or plasma total bilirubin measurement (mass/volume)" /> <statusCode code="completed" / > <effectiveTime value="982419117563" /> <value unit="mg/dL" xsi:type="PQ" value="0.3" /> <referenceRange> < observationRange> <text>0.1-1.0</text> </ observationRange> </referenceRange> </observation> </ component> <component> <observation moodCode="EVN" classCode="OBS"> <templateId root="2.16.840.1.428191.10..22.4.2" /> <id nullFlavor="NA" /> <code codeSystem="local" code="6768-6" displayName= "Serum or plasma alkaline phosphatase measurement (enzymatic activity/volume)" / > <statusCode code="completed" /> <effectiveTime value= "029325379709" /> <value unit="U/L" xsi:type="PQ" value="56" /> <referenceRange> <observationRange> <text>40-136</ text> </observationRange> </referenceRange> </ observation> </component> <component> <observation moodCode= "EVN" classCode="OBS"> <templateId root="2.16.840.1.839163.10..22.4.2 " /> <id nullFlavor="NA" /> <code codeSystem="local" code= "1919-11" displayName="Serum or plasma aspartate aminotransferase measurement ( enzymatic activity/volume)" /> <statusCode code="completed" /> <effectiveTime value="563521453041" /> <value unit="U/L" xsi:type="PQ " value="22" /> <referenceRange> <observationRange> <text>5-34</text> </observationRange> </referenceRange > </observation> </component> <component> <observation moodCode="EVN" classCode="OBS"> <templateId root= "2.16.840.1.949457.10.20.22.4.2" /> <id nullFlavor="NA" /> < code codeSystem="local" code="17405-17" displayName="Serum or plasma alanine aminotransferase measurement (enzymatic activity/volume)" /> < statusCode code="completed" /> <effectiveTime value="112396247609" /> <value unit="U/L" xsi:type="PQ" value="14" /> <referenceRange > <observationRange> <text>0-55</text> </ observationRange> </referenceRange> </observation> </ component> <component> <observation moodCode="EVN" classCode="OBS"> <templateId root="2.16.840.1.588046.10.20.22.4.2" /> <id nullFlavor="NA" /> <code codeSystem="local" code="2885-2" displayName= "Serum or plasma protein measurement (mass/volume)" /> <statusCode code ="completed" /> <effectiveTime value="042811170646" /> <value unit="g/dL" xsi:type="PQ" value="8.4" /> <interpretationCode codeSystem ="local" code="" /> <referenceRange> <observationRange> <text>6.4-8.2</text> </observationRange> </ referenceRange> </observation> </component> <component> <observation moodCode="EVN" classCode="OBS"> <templateId root= "2.16.840.1.842008.10.20.22.4.2" /> <id nullFlavor="NA" /> < code codeSystem="local" code="1751-7" displayName="Serum or plasma albumin measurement (mass/volume)" /> <statusCode code="completed" /> <effectiveTime value="324453451813" /> <value unit="g/dL" xsi:type="PQ " value="4.4" /> <referenceRange> <observationRange> <text>3.2-4.5</text> </observationRange> </ referenceRange> </observation> </component> </organizer> </entry > <entry> <organizer moodCode="EVN" classCode="BATTERY"> <templateId root="2.16.840.1.263866.10.20.22.4.1" /> <id nullFlavor="NA" /> <code codeSystem="local" code="4024-6" displayName="Serum or plasma salicylates measurement (mass/volume)" /> <statusCode code="completed" /> < component> <observation moodCode="EVN" classCode="OBS"> < templateId root="2.16.840.1.977496.10.20.22.4.2" /> <id nullFlavor="NA " /> <code codeSystem="local" code="4024-6" displayName="Serum or plasma salicylates measurement (mass/volume)" /> <statusCode code= "completed" /> <effectiveTime value="929261348736" /> <value unit="mg/dL" xsi:type="PQ" value="<" /> <interpretationCode codeSystem="local" code="" /> <referenceRange> < observationRange> <text>5.0-20.0</text> </ observationRange> </referenceRange> </observation> </ component> </organizer> </entry> <entry> <organizer moodCode="EVN" classCode="BATTERY"> <templateId root="2.16.840.1.868570.10.20.22.4.1" /> <id nullFlavor="NA" /> <code codeSystem="local" code="3298-7" displayName="Serum or plasma acetaminophen measurement (mass/volume)" /> < statusCode code="completed" /> <component> <observation moodCode= "EVN" classCode="OBS"> <templateId root="2.16.840.1.532617.10.20.22.4.2 " /> <id nullFlavor="NA" /> <code codeSystem="local" code= "3298-7" displayName="Serum or plasma acetaminophen measurement (mass/volume)" / > <statusCode code="completed" /> <effectiveTime value= "566067458001" /> <value unit="ug/mL" xsi:type="PQ" value="<" /> <interpretationCode codeSystem="local" code="" /> < referenceRange> <observationRange> <text>10-30</text> </observationRange> </referenceRange> </observation> </component> </organizer> </entry> <entry> <organizer moodCode="EVN " classCode="BATTERY"> <templateId root="2.16.840.1.036953.10.20.22.4.1" / > <id nullFlavor="NA" /> <code codeSystem="local" code="5643-2" displayName="Serum or plasma ethanol measurement (mass/volume)" /> < statusCode code="completed" /> <component> <observation moodCode= "EVN" classCode="OBS"> <templateId root="216.840.1.370919.10.20.22.4.2 " /> <id nullFlavor="NA" /> <code codeSystem="local" code= "5643-2" displayName="Serum or plasma ethanol measurement (mass/volume)" /> <statusCode code="completed" /> <effectiveTime value= "311278399746" /> <value unit="mg/dL" xsi:type="PQ" value="<" /> <referenceRange> <observationRange> <text><10< /text> </observationRange> </referenceRange> </ observation> </component> </organizer> </entry> <entry> <organizer moodCode="EVN" classCode="BATTERY"> <templateId root= "216.840.1.823895.10.20.22.4.1" /> <id nullFlavor="NA" /> <code codeSystem="local" code="04481-3" displayName="Complete urinalysis with reflex to culture" /> <statusCode code="completed" /> <component> < observation moodCode="EVN" classCode="OBS"> <templateId root= "216.840.1.274712.10.20.22.4.2" /> <id nullFlavor="NA" /> < code codeSystem="local" code="5778-6" displayName="Urine color determination" / > <statusCode code="completed" /> <effectiveTime value= "261802300111" /> <value unit="" xsi:type="PQ" value="YELLOW" /> <referenceRange> <observationRange> <text>NRG</text > </observationRange> </referenceRange> </observation > </component> <component> <observation moodCode="EVN" classCode="OBS"> <templateId root="2.16.840.1.342480.10..22.4.2" /> <id nullFlavor="NA" /> <code codeSystem="local" code="08338-8 " displayName="Urine clarity determination" /> <statusCode code= "completed" /> <effectiveTime value="" /> <value unit="" xsi:type="PQ" value="SLIGHTLY CLOUDY" /> <referenceRange> <observationRange> <text>NRG</text> </ observationRange> </referenceRange> </observation> </ component> <component> <observation moodCode="EVN" classCode="OBS"> <templateId root="216.840.1.092335.10..22.4.2" /> <id nullFlavor="NA" /> <code codeSystem="local" code="5803-2" displayName= "Urine pH measurement by test strip" /> <statusCode code="completed" / > <effectiveTime value="" /> <value unit="" xsi: type="PQ" value="6.5" /> <referenceRange> <observationRange > <text>5-9</text> </observationRange> </ referenceRange> </observation> </component> <component> <observation moodCode="EVN" classCode="OBS"> <templateId root= "216.840.1.188951..22.4.2" /> <id nullFlavor="NA" /> < code codeSystem="local" code="5811-5" displayName="Specific gravity of urine by test strip" /> <statusCode code="completed" /> <effectiveTime value="" /> <value unit="" xsi:type="PQ" value="1.010" /> <interpretationCode codeSystem="local" code="" /> < referenceRange> <observationRange> <text>1.016-1.022</ text> </observationRange> </referenceRange> </ observation> </component> <component> <observation moodCode= "EVN" classCode="OBS"> <templateId root="16.840.1.161391.10.2022.4.2 " /> <id nullFlavor="NA" /> <code codeSystem="local" code= "86513-5" displayName="Urine protein assay by test strip, semi-quantitative" /> <statusCode code="completed" /> <effectiveTime value= "" /> <value unit="" xsi:type="PQ" value="NEGATIVE" /> <referenceRange> <observationRange> <text>NEGATIVE </text> </observationRange> </referenceRange> </ observation> </component> <component> <observation moodCode= "EVN" classCode="OBS"> <templateId root="05.27.840.1.943421.1022.4.2 " /> <id nullFlavor="NA" /> <code codeSystem="local" code= "44255-6" displayName="Urine glucose detection by automated test strip" /> <statusCode code="completed" /> <effectiveTime value=" " /> <value unit="" xsi:type="PQ" value="NEGATIVE" /> < referenceRange> <observationRange> <text>NEGATIVE</text > </observationRange> </referenceRange> </observation > </component> <component> <observation moodCode="EVN" classCode="OBS"> <templateId root="05.27.840.1.227508.10.2022.4.2" /> <id nullFlavor="NA" /> <code codeSystem="local" code="39829-2 " displayName="Erythrocytes detection in urine sediment by light microscopy" /> <statusCode code="completed" /> <effectiveTime value= "017145511895" /> <value unit="" xsi:type="PQ" value="4+" /> < interpretationCode codeSystem="local" code="*" /> <referenceRange> <observationRange> <text>NEGATIVE</text> </ observationRange> </referenceRange> </observation> </ component> <component> <observation moodCode="EVN" classCode="OBS"> <templateId root="216.840.1.249894.10..22.4.2" /> <id nullFlavor="NA" /> <code codeSystem="local" code="71692-5" displayName= "Urine ketones detection by automated test strip" /> <statusCode code= "completed" /> <effectiveTime value="148544102612" /> <value unit="" xsi:type="PQ" value="3+" /> <interpretationCode codeSystem= "local" code="*" /> <referenceRange> <observationRange> <text>NEGATIVE</text> </observationRange> </ referenceRange> </observation> </component> <component> <observation moodCode="EVN" classCode="OBS"> <templateId root= "216.840.1.896275.10..22.4.2" /> <id nullFlavor="NA" /> < code codeSystem="local" code="5802-4" displayName="Urine nitrite detection by test strip" /> <statusCode code="completed" /> <effectiveTime value="" /> <value unit="" xsi:type="PQ" value="NEGATIVE" / > <referenceRange> <observationRange> <text> NEGATIVE</text> </observationRange> </referenceRange> </observation> </component> <component> <observation moodCode ="EVN" classCode="OBS"> <templateId root= "216.840.1.503678.10..22.4.2" /> <id nullFlavor="NA" /> < code codeSystem="local" code="5770-3" displayName="Urine total bilirubin detection by test strip" /> <statusCode code="completed" /> < effectiveTime value="" /> <value unit="" xsi:type="PQ" value="NEGATIVE" /> <referenceRange> <observationRange> <text>NEGATIVE</text> </observationRange> </ referenceRange> </observation> </component> <component> <observation moodCode="EVN" classCode="OBS"> <templateId root= "2.16.840.1.750792.10..4.2" /> <id nullFlavor="NA" /> < code codeSystem="local" code="09163-9" displayName="Urine urobilinogen measurement by automated test strip (mass/volume)" /> <statusCode code= "completed" /> <effectiveTime value="" /> <value unit="" xsi:type="PQ" value="NORMAL" /> <referenceRange> < observationRange> <text>NORMAL</text> </observationRange > </referenceRange> </observation> </component> < component> <observation moodCode="EVN" classCode="OBS"> < templateId root="2.16.840.1.492883.10..4.2" /> <id nullFlavor="NA " /> <code codeSystem="local" code="5799-2" displayName="Urine leukocyte esterase detection by dipstick" /> <statusCode code= "completed" /> <effectiveTime value="" /> <value unit="" xsi:type="PQ" value="NEGATIVE" /> <referenceRange> < observationRange> <text>NEGATIVE</text> </ observationRange> </referenceRange> </observation> </ component> <component> <observation moodCode="EVN" classCode="OBS"> <templateId root="2.16.840.1.787105.10..22.4.2" /> <id nullFlavor="NA" /> <code codeSystem="local" code="13244-6" displayName= "Automated urine sediment erythrocyte count by microscopy (number/high power field)" /> <statusCode code="completed" /> <effectiveTime value="" /> <value unit="" xsi:type="PQ" value="RARE" /> <referenceRange> <observationRange> <text>NRG</ text> </observationRange> </referenceRange> </ observation> </component> <component> <observation moodCode= "EVN" classCode="OBS"> <templateId root="216.840.1.348147.01.28.22.4.2 " /> <id nullFlavor="NA" /> <code codeSystem="local" code= "5821-4" displayName="Automated urine sediment leukocyte count by microscopy ( number/high power field)" /> <statusCode code="completed" /> < effectiveTime value="" /> <value unit="[HPF]" xsi:type="PQ " value="" /> <referenceRange> <observationRange> <text>NRG</text> </observationRange> </referenceRange> </observation> </component> <component> <observation moodCode="EVN" classCode="OBS"> <templateId root= "2.16.840.1.608117.10..22.4.2" /> <id nullFlavor="NA" /> < code codeSystem="local" code="16646-8" displayName="Bacteria detection in urine sediment by light microscopy" /> <statusCode code="completed" /> <effectiveTime value="" /> <value unit="" xsi:type="PQ " value="NEGATIVE" /> <referenceRange> <observationRange> <text>NRG</text> </observationRange> </ referenceRange> </observation> </component> <component> <observation moodCode="EVN" classCode="OBS"> <templateId root= "216.840.1.547517.10...4.2" /> <id nullFlavor="NA" /> < code codeSystem="local" code="19459-9" displayName="Squamous epithelial cells detection in urine sediment by light microscopy" /> <statusCode code= "completed" /> <effectiveTime value="" /> <value unit="" xsi:type="PQ" value="2-5" /> <referenceRange> < observationRange> <text>NRG</text> </observationRange> </referenceRange> </observation> </component> < component> <observation moodCode="EVN" classCode="OBS"> < templateId root="05.27.840.1.442656.10...4.2" /> <id nullFlavor="NA " /> <code codeSystem="local" code="42166-3" displayName="Crystals detection in urine sediment by light microscopy" /> <statusCode code= "completed" /> <effectiveTime value="" /> <value unit="" xsi:type="PQ" value="NONE" /> <referenceRange> < observationRange> <text>NRG</text> </observationRange> </referenceRange> </observation> </component> < component> <observation moodCode="EVN" classCode="OBS"> < templateId root="16.840.1.688057.10.20.22.4.2" /> <id nullFlavor="NA " /> <code codeSystem="local" code="39485-0" displayName="Casts detection in urine sediment by light microscopy" /> <statusCode code= "completed" /> <effectiveTime value="" /> <value unit="" xsi:type="PQ" value="NONE" /> <referenceRange> < observationRange> <text>NRG</text> </observationRange> </referenceRange> </observation> </component> < component> <observation moodCode="EVN" classCode="OBS"> < templateId root="16.840.1.602880.10.20.22.4.2" /> <id nullFlavor="NA " /> <code codeSystem="local" code="8247-9" displayName="Mucus detection in urine sediment by light microscopy" /> <statusCode code= "completed" /> <effectiveTime value="" /> <value unit="" xsi:type="PQ" value="NEGATIVE" /> <referenceRange> < observationRange> <text>NRG</text> </observationRange> </referenceRange> </observation> </component> < component> <observation moodCode="EVN" classCode="OBS"> < templateId root="05.27.840.1.606325.10.20.22.4.2" /> <id nullFlavor="NA " /> <code codeSystem="local" code="26844-4" displayName="Complete urinalysis with reflex to culture" /> <statusCode code="completed" /> <effectiveTime value="" /> <value unit="" xsi:type ="PQ" value="NO" /> <referenceRange> <observationRange> <text>NRG</text> </observationRange> </ referenceRange> </observation> </component> <component> <observation moodCode="EVN" classCode="OBS"> <templateId root= "840.1.058659.10..22.4.2" /> <id nullFlavor="NA" /> < code codeSystem="local" code="05275-7" displayName="Yeast detection in urine sediment by light microscopy" /> <statusCode code="completed" /> <effectiveTime value="320588722708" /> <value unit="" xsi:type="PQ " value="FEW" /> <interpretationCode codeSystem="local" code="*" /> <referenceRange> <observationRange> <text>NRG</ text> </observationRange> </referenceRange> </ observation> </component> </organizer> </entry> <entry> <organizer moodCode="EVN" classCode="BATTERY"> <templateId root= "05.27.840.1.885455.10..22.4.1" /> <id nullFlavor="NA" /> <code codeSystem="local" code="13123-7" displayName="Urine drug screening test" /> <statusCode code="completed" /> <component> <observation moodCode ="EVN" classCode="OBS"> <templateId root= "16.840.1.520774.10..22.4.2" /> <id nullFlavor="NA" /> < code codeSystem="local" code="26217-6" displayName="Urine phencyclidine detection by screening method" /> <statusCode code="completed" /> <effectiveTime value="761846038525" /> <value unit="" xsi:type="PQ " value="NEGATIVE" /> <referenceRange> <observationRange> <text>NEGATIVE</text> </observationRange> </ referenceRange> </observation> </component> <component> <observation moodCode="EVN" classCode="OBS"> <templateId root= "05.27.840.1.540982.01.28.22.4.2" /> <id nullFlavor="NA" /> < code codeSystem="local" code="07606-4" displayName="Urine benzodiazepines detection by screening method" /> <statusCode code="completed" /> <effectiveTime value="" /> <value unit="" xsi:type="PQ " value="POSITIVE" /> <interpretationCode codeSystem="local" code="*" / > <referenceRange> <observationRange> <text> NEGATIVE</text> </observationRange> </referenceRange> </observation> </component> <component> <observation moodCode ="EVN" classCode="OBS"> <templateId root= "2.16.840.1.590282.10..22.4.2" /> <id nullFlavor="NA" /> < code codeSystem="local" code="3397-7" displayName="Urine cocaine detection" /> <statusCode code="completed" /> <effectiveTime value= "" /> <value unit="" xsi:type="PQ" value="NEGATIVE" /> <referenceRange> <observationRange> <text>NEGATIVE </text> </observationRange> </referenceRange> </ observation> </component> <component> <observation moodCode= "EVN" classCode="OBS"> <templateId root="2.16.840.1.652221.10..22.4.2 " /> <id nullFlavor="NA" /> <code codeSystem="local" code= "61900-2" displayName="Urine amphetamines detection by screening method" /> <statusCode code="completed" /> <effectiveTime value= "" /> <value unit="" xsi:type="PQ" value="NEGATIVE" /> <referenceRange> <observationRange> <text>NEGATIVE </text> </observationRange> </referenceRange> </ observation> </component> <component> <observation moodCode= "EVN" classCode="OBS"> <templateId root="2.16.840.1.805694.10..22.4.2 " /> <id nullFlavor="NA" /> <code codeSystem="local" code= "33425-7" displayName="Urine methamphetamine detection by screening method" /> <statusCode code="completed" /> <effectiveTime value= "" /> <value unit="" xsi:type="PQ" value="NEGATIVE" /> <referenceRange> <observationRange> <text>NEGATIVE </text> </observationRange> </referenceRange> </ observation> </component> <component> <observation moodCode= "EVN" classCode="OBS"> <templateId root="2.16.840.1.382001.10...4.2 " /> <id nullFlavor="NA" /> <code codeSystem="local" code= "21911-0" displayName="Urine cannabinoids detection by screening method" /> <statusCode code="completed" /> <effectiveTime value= "" /> <value unit="" xsi:type="PQ" value="NEGATIVE" /> <referenceRange> <observationRange> <text>NEGATIVE </text> </observationRange> </referenceRange> </ observation> </component> <component> <observation moodCode= "EVN" classCode="OBS"> <templateId root="216.840.1.314555.10..22.4.2 " /> <id nullFlavor="NA" /> <code codeSystem="local" code= "26904-4" displayName="Urine opiates detection by screening method" /> <statusCode code="completed" /> <effectiveTime value="" /> <value unit="" xsi:type="PQ" value="NEGATIVE" /> < referenceRange> <observationRange> <text>NEGATIVE</text > </observationRange> </referenceRange> </observation > </component> <component> <observation moodCode="EVN" classCode="OBS"> <templateId root="216.840.1.208107.10.20.22.4.2" /> <id nullFlavor="NA" /> <code codeSystem="local" code="3377-9" displayName="Urine barbiturates detection" /> <statusCode code= "completed" /> <effectiveTime value="" /> <value unit="" xsi:type="PQ" value="NEGATIVE" /> <referenceRange> < observationRange> <text>NEGATIVE</text> </ observationRange> </referenceRange> </observation> </ component> <component> <observation moodCode="EVN" classCode="OBS"> <templateId root="05.27.840.1.071263.10.22.4.2" /> <id nullFlavor="NA" /> <code codeSystem="local" code="50873-4" displayName= "Screening urine tricyclic antidepressants detection" /> <statusCode code="completed" /> <effectiveTime value="623521158696" /> < value unit="" xsi:type="PQ" value="NEGATIVE" /> <referenceRange> <observationRange> <text>NEGATIVE</text> </ observationRange> </referenceRange> </observation> </ component> <component> <observation moodCode="EVN" classCode="OBS"> <templateId root="16.840.1.616351.10.20.22.4.2" /> <id nullFlavor="NA" /> <code codeSystem="local" code="55035-6" displayName= "Urine methadone detection by screening method" /> <statusCode code= "completed" /> <effectiveTime value="" /> <value unit="" xsi:type="PQ" value="NEGATIVE" /> <referenceRange> < observationRange> <text>NEGATIVE</text> </ observationRange> </referenceRange> </observation> </ component> <component> <observation moodCode="EVN" classCode="OBS"> <templateId root="216.840.1.229614.10..22.4.2" /> <id nullFlavor="NA" /> <code codeSystem="local" code="52991-4" displayName= "Urine oxycodone detection" /> <statusCode code="completed" /> <effectiveTime value="" /> <value unit="" xsi:type="PQ" value="NEGATIVE" /> <referenceRange> <observationRange> <text>NEGATIVE</text> </observationRange> </ referenceRange> </observation> </component> <component> <observation moodCode="EVN" classCode="OBS"> <templateId root= "216.840.1.726466.10.22.4.2" /> <id nullFlavor="NA" /> < code codeSystem="local" code="75947-2" displayName="Urine propoxyphene detection " /> <statusCode code="completed" /> <effectiveTime value= "" /> <value unit="" xsi:type="PQ" value="NEGATIVE" /> <referenceRange> <observationRange> <text>NEGATIVE </text> </observationRange> </referenceRange> </ observation> </component> <component> <observation moodCode= "EVN" classCode="OBS"> <templateId root="216.840.1.787064.10..22.4.2 " /> <id nullFlavor="NA" /> <code codeSystem="local" code= "31197-2" displayName="Urine buprenophrine screen" /> <statusCode code= "completed" /> <effectiveTime value="847473050021" /> <value unit="" xsi:type="PQ" value="NEGATIVE" /> <referenceRange> < observationRange> <text>NEGATIVE</text> </ observationRange> </referenceRange> </observation> </ component> </organizer> </entry> <entry> <organizer moodCode="EVN" classCode="BATTERY"> <templateId root="216.840.1.382744.10.20.22.4.1" /> <id nullFlavor="NA" /> <code codeSystem="local" code="31993-4" displayName="Capillary blood glucose measurement by glucometer (mass/volume)" / > <statusCode code="completed" /> <component> <observation moodCode="EVN" classCode="OBS"> <templateId root= "216.840.1.535303.10.20.22.4.2" /> <id nullFlavor="NA" /> < code codeSystem="local" code="58970-6" displayName="Capillary blood glucose measurement by glucometer (mass/volume)" /> <statusCode code="completed " /> <effectiveTime value="620080071670" /> <value unit="mg/dL " xsi:type="PQ" value="118" /> <interpretationCode codeSystem="local" code="" /> <referenceRange> <observationRange> <text>70-110</text> </observationRange> </referenceRange > </observation> </component> </organizer> </entry> <entry> <organizer moodCode="EVN" classCode="BATTERY"> <templateId root= "216.840.1.572642.10.20.22.4.1" /> <id nullFlavor="NA" /> <code codeSystem="local" code="72578-9" displayName="Complete blood count (CBC) with automated white blood cell (WBC) differential" /> <statusCode code= "completed" /> <component> <observation moodCode="EVN" classCode= "OBS"> <templateId root="216.840.1.335188.10.20.22.4.2" /> < id nullFlavor="NA" /> <code codeSystem="local" code="6690-2" displayName="Blood leukocytes automated count (number/volume)" /> < statusCode code="completed" /> <effectiveTime value="503995978329" /> <value unit="10*3/uL" xsi:type="PQ" value="7.2" /> < referenceRange> <observationRange> <text>4.3-11.0</text > </observationRange> </referenceRange> </observation > </component> <component> <observation moodCode="EVN" classCode="OBS"> <templateId root="05.27.840.1.158910.10.20.22.4.2" /> <id nullFlavor="NA" /> <code codeSystem="local" code="789-8" displayName="Blood erythrocytes automated count (number/volume)" /> < statusCode code="completed" /> <effectiveTime value="773417933270" /> <value unit="10*6/uL" xsi:type="PQ" value="4.09" /> < interpretationCode codeSystem="local" code="" /> <referenceRange> <observationRange> <text>4.35-5.85</text> </ observationRange> </referenceRange> </observation> </ component> <component> <observation moodCode="EVN" classCode="OBS"> <templateId root="216.840.1.506576.10.4.2" /> <id nullFlavor="NA" /> <code codeSystem="local" code="07949-7" displayName= "Venous blood hemoglobin measurement (mass/volume)" /> <statusCode code ="completed" /> <effectiveTime value="" /> <value unit="g/dL" xsi:type="PQ" value="9.5" /> <interpretationCode codeSystem ="local" code="" /> <referenceRange> <observationRange> <text>11.5-16.0</text> </observationRange> </ referenceRange> </observation> </component> <component> <observation moodCode="EVN" classCode="OBS"> <templateId root= "2.16.840.1.581336.10.4.2" /> <id nullFlavor="NA" /> < code codeSystem="local" code="44137-9" displayName="Blood hematocrit (volume fraction)" /> <statusCode code="completed" /> <effectiveTime value="" /> <value unit="%" xsi:type="PQ" value="31" / > <interpretationCode codeSystem="local" code="" /> < referenceRange> <observationRange> <text>35-52</text> </observationRange> </referenceRange> </observation> </component> <component> <observation moodCode="EVN" classCode= "OBS"> <templateId root="2.16.840.1.462917.10..4.2" /> < id nullFlavor="NA" /> <code codeSystem="local" code="787-2" displayName ="Automated erythrocyte mean corpuscular volume" /> <statusCode code= "completed" /> <effectiveTime value="" /> <value unit="[foz_us]" xsi:type="PQ" value="76" /> <interpretationCode codeSystem="local" code="" /> <referenceRange> < observationRange> <text>80-99</text> </observationRange > </referenceRange> </observation> </component> < component> <observation moodCode="EVN" classCode="OBS"> < templateId root="2.16.840.1.948448.10..22.4.2" /> <id nullFlavor="NA " /> <code codeSystem="local" code="785-6" displayName="Automated erythrocyte mean corpuscular hemoglobin (mass per erythrocyte)" /> < statusCode code="completed" /> <effectiveTime value="648651406169" /> <value unit="pg" xsi:type="PQ" value="23" /> < interpretationCode codeSystem="local" code="" /> <referenceRange> <observationRange> <text>25-34</text> </ observationRange> </referenceRange> </observation> </ component> <component> <observation moodCode="EVN" classCode="OBS"> <templateId root="2.16.840.1.934492.10..22.4.2" /> <id nullFlavor="NA" /> <code codeSystem="local" code="786-4" displayName= "Automated erythrocyte mean corpuscular hemoglobin concentration measurement ( mass/volume)" /> <statusCode code="completed" /> < effectiveTime value="874673776475" /> <value unit="g/dL" xsi:type="PQ" value="31" /> <interpretationCode codeSystem="local" code="" /> <referenceRange> <observationRange> <text>32-36</ text> </observationRange> </referenceRange> </ observation> </component> <component> <observation moodCode= "EVN" classCode="OBS"> <templateId root="216.840.1.211884.10..22.4.2 " /> <id nullFlavor="NA" /> <code codeSystem="local" code="788 -0" displayName="Automated erythrocyte distribution width ratio" /> < statusCode code="completed" /> <effectiveTime value="" /> <value unit="%" xsi:type="PQ" value="17.9" /> < interpretationCode codeSystem="local" code="" /> <referenceRange> <observationRange> <text>10.0-14.5</text> </ observationRange> </referenceRange> </observation> </ component> <component> <observation moodCode="EVN" classCode="OBS"> <templateId root="05.27.840.1.687018..22.4.2" /> <id nullFlavor="NA" /> <code codeSystem="local" code="777-3" displayName= "Automated blood platelet count (count/volume)" /> <statusCode code= "completed" /> <effectiveTime value="" /> <value unit="10*3/uL" xsi:type="PQ" value="473" /> <interpretationCode codeSystem="local" code="" /> <referenceRange> < observationRange> <text>130-400</text> </ observationRange> </referenceRange> </observation> </ component> <component> <observation moodCode="EVN" classCode="OBS"> <templateId root="05.27.840.1.746696.10.20.22.4.2" /> <id nullFlavor="NA" /> <code codeSystem="local" code="35163-2" displayName= "Automated blood platelet mean volume measurement" /> <statusCode code= "completed" /> <effectiveTime value="" /> <value unit="[[facility]]" xsi:type="PQ" value="9.9" /> <referenceRange> <observationRange> <text>7.4-10.4</text> </ observationRange> </referenceRange> </observation> </ component> <component> <observation moodCode="EVN" classCode="OBS"> <templateId root="2.16.840.1.678129.1022.4.2" /> <id nullFlavor="NA" /> <code codeSystem="local" code="770-8" displayName= "Automated blood neutrophils/100 leukocytes" /> <statusCode code= "completed" /> <effectiveTime value="" /> <value unit="%" xsi:type="PQ" value="43" /> <referenceRange> < observationRange> <text>42-75</text> </observationRange > </referenceRange> </observation> </component> < component> <observation moodCode="EVN" classCode="OBS"> < templateId root="2.16.840.1.866682.104.2" /> <id nullFlavor="NA " /> <code codeSystem="local" code="736-9" displayName="Automated blood lymphocytes/100 leukocytes" /> <statusCode code="completed" /> <effectiveTime value="" /> <value unit="%" xsi: type="PQ" value="47" /> <interpretationCode codeSystem="local" code=" " /> <referenceRange> <observationRange> <text> 12-44</text> </observationRange> </referenceRange> </ observation> </component> <component> <observation moodCode= "EVN" classCode="OBS"> <templateId root="2.16.840.1.814324...22.4.2 " /> <id nullFlavor="NA" /> <code codeSystem="local" code= "74807-1" displayName="Blood monocytes/100 leukocytes" /> <statusCode code="completed" /> <effectiveTime value="" /> < value unit="%" xsi:type="PQ" value="7" /> <referenceRange> <observationRange> <text>0-12</text> </ observationRange> </referenceRange> </observation> </ component> <component> <observation moodCode="EVN" classCode="OBS"> <templateId root="2.16.840.1.411391...4.2" /> <id nullFlavor="NA" /> <code codeSystem="local" code="713-8" displayName= "Automated blood eosinophils/100 leukocytes" /> <statusCode code= "completed" /> <effectiveTime value="" /> <value unit="%" xsi:type="PQ" value="3" /> <referenceRange> < observationRange> <text>0-10</text> </observationRange> </referenceRange> </observation> </component> < component> <observation moodCode="EVN" classCode="OBS"> < templateId root="2.16.840.1.451374.10.22.4.2" /> <id nullFlavor="NA " /> <code codeSystem="local" code="706-2" displayName="Automated blood basophils/100 leukocytes" /> <statusCode code="completed" /> <effectiveTime value="" /> <value unit="%" xsi: type="PQ" value="0" /> <referenceRange> <observationRange> <text>0-10</text> </observationRange> </ referenceRange> </observation> </component> <component> <observation moodCode="EVN" classCode="OBS"> <templateId root= "2.16.840.1.797096.10.20.22.4.2" /> <id nullFlavor="NA" /> < code codeSystem="local" code="751-8" displayName="Blood neutrophils automated count (number/volume)" /> <statusCode code="completed" /> < effectiveTime value="361698083559" /> <value unit="10*3" xsi:type="PQ" value="3.1" /> <referenceRange> <observationRange> <text>1.8-7.8</text> </observationRange> </ referenceRange> </observation> </component> <component> <observation moodCode="EVN" classCode="OBS"> <templateId root= "2.16.840.1.452982.22.4.2" /> <id nullFlavor="NA" /> < code codeSystem="local" code="731-0" displayName="Blood lymphocytes automated count (number/volume)" /> <statusCode code="completed" /> < effectiveTime value="623461111862" /> <value unit="10*3" xsi:type="PQ" value="3.4" /> <referenceRange> <observationRange> <text>1.0-4.0</text> </observationRange> </ referenceRange> </observation> </component> <component> <observation moodCode="EVN" classCode="OBS"> <templateId root= "2.16.840.1.310169.10.20.22.4.2" /> <id nullFlavor="NA" /> < code codeSystem="local" code="742-7" displayName="Blood monocytes automated count (number/volume)" /> <statusCode code="completed" /> < effectiveTime value="514326669789" /> <value unit="10*3" xsi:type="PQ" value="0.5" /> <referenceRange> <observationRange> <text>0.0-1.0</text> </observationRange> </ referenceRange> </observation> </component> <component> <observation moodCode="EVN" classCode="OBS"> <templateId root= "2.16.840.1.089006.10..4.2" /> <id nullFlavor="NA" /> < code codeSystem="local" code="711-2" displayName="Automated eosinophil count" / > <statusCode code="completed" /> <effectiveTime value= "454437991752" /> <value unit="10*3/uL" xsi:type="PQ" value="0.2" /> <referenceRange> <observationRange> <text>0.0- 0.3</text> </observationRange> </referenceRange> </ observation> </component> <component> <observation moodCode= "EVN" classCode="OBS"> <templateId root="2.16.840.1.296919....4.2 " /> <id nullFlavor="NA" /> <code codeSystem="local" code="704 -7" displayName="Automated blood basophil count (count/volume)" /> < statusCode code="completed" /> <effectiveTime value="884395394579" /> <value unit="10*3/uL" xsi:type="PQ" value="0.0" /> < referenceRange> <observationRange> <text>0.0-0.1</text> </observationRange> </referenceRange> </observation > </component> </organizer> </entry> <entry> <organizer moodCode= "EVN" classCode="BATTERY"> <templateId root="2.16.840.1.985203.10..22.4.1 " /> <id nullFlavor="NA" /> <code codeSystem="local" code="36495-0" displayName="Comprehensive metabolic panel" /> <statusCode code="completed " /> <component> <observation moodCode="EVN" classCode="OBS"> <templateId root="216.840.1.141398.10.22.4.2" /> <id nullFlavor ="NA" /> <code codeSystem="local" code="2951-2" displayName="Serum or plasma sodium measurement (moles/volume)" /> <statusCode code= "completed" /> <effectiveTime value="383356252771" /> <value unit="mmol/L" xsi:type="PQ" value="139" /> <referenceRange> <observationRange> <text>135-145</text> </ observationRange> </referenceRange> </observation> </ component> <component> <observation moodCode="EVN" classCode="OBS"> <templateId root="216.840.1.395500.01.28.22.4.2" /> <id nullFlavor="NA" /> <code codeSystem="local" code="2823-3" displayName= "Serum or plasma potassium measurement (moles/volume)" /> <statusCode code="completed" /> <effectiveTime value="512839424050" /> < value unit="mmol/L" xsi:type="PQ" value="3.8" /> <referenceRange> <observationRange> <text>3.6-5.0</text> </ observationRange> </referenceRange> </observation> </ component> <component> <observation moodCode="EVN" classCode="OBS"> <templateId root="216.840.1.269890..22.4.2" /> <id nullFlavor="NA" /> <code codeSystem="local" code="" displayName= "Serum or plasma chloride measurement (moles/volume)" /> <statusCode code="completed" /> <effectiveTime value="" /> < value unit="mmol/L" xsi:type="PQ" value="113" /> <interpretationCode codeSystem="local" code="" /> <referenceRange> < observationRange> <text>98-107</text> </observationRange > </referenceRange> </observation> </component> < component> <observation moodCode="EVN" classCode="OBS"> < templateId root="2.16.840.1.874606.10..22.4.2" /> <id nullFlavor="NA " /> <code codeSystem="local" code="2027-12" displayName="Carbon dioxide " /> <statusCode code="completed" /> <effectiveTime value= "" /> <value unit="mmol/L" xsi:type="PQ" value="16" /> <interpretationCode codeSystem="local" code="" /> < referenceRange> <observationRange> <text>21-32</text> </observationRange> </referenceRange> </observation> </component> <component> <observation moodCode="EVN" classCode= "OBS"> <templateId root="216.840.1.766721.10..22.4.2" /> < id nullFlavor="NA" /> <code codeSystem="local" code="17465-0" displayName="Serum or plasma anion gap determination (moles/volume)" /> <statusCode code="completed" /> <effectiveTime value="100748862954" / > <value unit="mmol/L" xsi:type="PQ" value="10" /> < referenceRange> <observationRange> <text>5-14</text> </observationRange> </referenceRange> </observation> </component> <component> <observation moodCode="EVN" classCode= "OBS"> <templateId root="216.840.1.148633.10.20.22.4.2" /> < id nullFlavor="NA" /> <code codeSystem="local" code="3094-0" displayName="Serum or plasma urea nitrogen measurement (mass/volume)" /> <statusCode code="completed" /> <effectiveTime value="099117243875" /> <value unit="mg/dL" xsi:type="PQ" value="8" /> < referenceRange> <observationRange> <text>7-18</text> </observationRange> </referenceRange> </observation> </component> <component> <observation moodCode="EVN" classCode= "OBS"> <templateId root="05.27.840.1.196104.10..22.4.2" /> < id nullFlavor="NA" /> <code codeSystem="local" code="2160-0" displayName="Serum or plasma creatinine measurement (mass/volume)" /> < statusCode code="completed" /> <effectiveTime value="182554584902" /> <value unit="mg/dL" xsi:type="PQ" value="0.62" /> < referenceRange> <observationRange> <text>0.60-1.30</text > </observationRange> </referenceRange> </observation > </component> <component> <observation moodCode="EVN" classCode="OBS"> <templateId root="216.840.1.743267.10.20.22.4.2" /> <id nullFlavor="NA" /> <code codeSystem="local" code="3097-3" displayName="Serum or plasma urea nitrogen/creatinine mass ratio" /> < statusCode code="completed" /> <effectiveTime value="348944157176" /> <value unit="" xsi:type="PQ" value="13" /> <referenceRange> <observationRange> <text>NRG</text> </ observationRange> </referenceRange> </observation> </ component> <component> <observation moodCode="EVN" classCode="OBS"> <templateId root="2.16.840.1.174567.10.20.22.4.2" /> <id nullFlavor="NA" /> <code codeSystem="local" code="82119-3" displayName= "Serum or plasma creatinine measurement with calculation of estimated glomerular filtration rate" /> <statusCode code="completed" /> <effectiveTime value="621518447030" /> <value unit="" xsi:type="PQ" value=">" /> <referenceRange> <observationRange> <text>NRG</text> </observationRange> </referenceRange > </observation> </component> <component> <observation moodCode="EVN" classCode="OBS"> <templateId root= "2.16.840.1.065912.10.20.22.4.2" /> <id nullFlavor="NA" /> < code codeSystem="local" code="2345-7" displayName="Serum or plasma glucose measurement (mass/volume)" /> <statusCode code="completed" /> <effectiveTime value="760920538582" /> <value unit="mg/dL" xsi:type="PQ " value="89" /> <referenceRange> <observationRange> <text>70-105</text> </observationRange> </ referenceRange> </observation> </component> <component> <observation moodCode="EVN" classCode="OBS"> <templateId root= "2.16.840.1.042987.10.20.22.4.2" /> <id nullFlavor="NA" /> < code codeSystem="local" code="22473-2" displayName="Serum or plasma calcium measurement (mass/volume)" /> <statusCode code="completed" /> <effectiveTime value="605912529791" /> <value unit="mg/dL" xsi:type="PQ " value="8.6" /> <referenceRange> <observationRange> <text>8.5-10.1</text> </observationRange> </ referenceRange> </observation> </component> <component> <observation moodCode="EVN" classCode="OBS"> <templateId root= "216.840.1.909183.10.20.22.4.2" /> <id nullFlavor="NA" /> < code codeSystem="local" code="1974-05" displayName="Serum or plasma total bilirubin measurement (mass/volume)" /> <statusCode code="completed" / > <effectiveTime value="392033675560" /> <value unit="mg/dL" xsi:type="PQ" value="0.3" /> <referenceRange> < observationRange> <text>0.1-1.0</text> </ observationRange> </referenceRange> </observation> </ component> <component> <observation moodCode="EVN" classCode="OBS"> <templateId root="2.16.840.1.045126.10.20.22.4.2" /> <id nullFlavor="NA" /> <code codeSystem="local" code="6768-6" displayName= "Serum or plasma alkaline phosphatase measurement (enzymatic activity/volume)" / > <statusCode code="completed" /> <effectiveTime value= "833527576873" /> <value unit="U/L" xsi:type="PQ" value="44" /> <referenceRange> <observationRange> <text>40-136</ text> </observationRange> </referenceRange> </ observation> </component> <component> <observation moodCode= "EVN" classCode="OBS"> <templateId root="2.16.840.1.022115.10.20.22.4.2 " /> <id nullFlavor="NA" /> <code codeSystem="local" code= "1919-11" displayName="Serum or plasma aspartate aminotransferase measurement ( enzymatic activity/volume)" /> <statusCode code="completed" /> <effectiveTime value="409080171234" /> <value unit="U/L" xsi:type="PQ " value="12" /> <referenceRange> <observationRange> <text>5-34</text> </observationRange> </referenceRange > </observation> </component> <component> <observation moodCode="EVN" classCode="OBS"> <templateId root= "216.840.1.302532.10...4.2" /> <id nullFlavor="NA" /> < code codeSystem="local" code="17405-17" displayName="Serum or plasma alanine aminotransferase measurement (enzymatic activity/volume)" /> < statusCode code="completed" /> <effectiveTime value="817936749728" /> <value unit="U/L" xsi:type="PQ" value="12" /> <referenceRange > <observationRange> <text>0-55</text> </ observationRange> </referenceRange> </observation> </ component> <component> <observation moodCode="EVN" classCode="OBS"> <templateId root="216.840.1.147810.10.20.22.4.2" /> <id nullFlavor="NA" /> <code codeSystem="local" code="2885-2" displayName= "Serum or plasma protein measurement (mass/volume)" /> <statusCode code ="completed" /> <effectiveTime value="492779751177" /> <value unit="g/dL" xsi:type="PQ" value="5.9" /> <interpretationCode codeSystem ="local" code="" /> <referenceRange> <observationRange> <text>6.4-8.2</text> </observationRange> </ referenceRange> </observation> </component> <component> <observation moodCode="EVN" classCode="OBS"> <templateId root= "216.840.1.440253.10..22.4.2" /> <id nullFlavor="NA" /> < code codeSystem="local" code="1751-7" displayName="Serum or plasma albumin measurement (mass/volume)" /> <statusCode code="completed" /> <effectiveTime value="524879805198" /> <value unit="g/dL" xsi:type="PQ " value="3.4" /> <referenceRange> <observationRange> <text>3.2-4.5</text> </observationRange> </ referenceRange> </observation> </component> </organizer> </entry > <entry> <organizer moodCode="EVN" classCode="BATTERY"> <templateId root="16.840.1.367601.10..22.4.1" /> <id nullFlavor="NA" /> <code codeSystem="local" code="2777-1" displayName="Serum or plasma phosphate measurement (mass/volume)" /> <statusCode code="completed" /> < component> <observation moodCode="EVN" classCode="OBS"> < templateId root="216.840.1.613774.10.20.22.4.2" /> <id nullFlavor="NA " /> <code codeSystem="local" code="2777-1" displayName="Serum or plasma phosphate measurement (mass/volume)" /> <statusCode code= "completed" /> <effectiveTime value="773172805702" /> <value unit="mg/dL" xsi:type="PQ" value="3.7" /> <referenceRange> < observationRange> <text>2.3-4.7</text> </ observationRange> </referenceRange> </observation> </ component> </organizer> </entry> <entry> <organizer moodCode="EVN" classCode="BATTERY"> <templateId root="216.840.1.554273.10..22.4.1" /> <id nullFlavor="NA" /> <code codeSystem="local" code="61086-1" displayName="Magnesium" /> <statusCode code="completed" /> <component > <observation moodCode="EVN" classCode="OBS"> <templateId root= "2.16.840.1.773313.10..22.4.2" /> <id nullFlavor="NA" /> < code codeSystem="local" code="62500-7" displayName="Magnesium" /> < statusCode code="completed" /> <effectiveTime value="877231937719" /> <value unit="mg/dL" xsi:type="PQ" value="2.1" /> < referenceRange> <observationRange> <text>1.8-2.4</text> </observationRange> </referenceRange> </observation > </component> </organizer> </entry> <entry> <organizer moodCode= "EVN" classCode="BATTERY"> <templateId root="216.840.1.784613.10..22.4.1 " /> <id nullFlavor="NA" /> <code codeSystem="local" code="70542-9" displayName="Complete blood count (CBC) with automated white blood cell (WBC) differential" /> <statusCode code="completed" /> <component> < observation moodCode="EVN" classCode="OBS"> <templateId root= "216.840.1.398670.10.20.22.4.2" /> <id nullFlavor="NA" /> < code codeSystem="local" code="6690-2" displayName="Blood leukocytes automated count (number/volume)" /> <statusCode code="completed" /> < effectiveTime value="809050196717" /> <value unit="10*3/uL" xsi:type= "PQ" value="10.3" /> <referenceRange> <observationRange> <text>4.3-11.0</text> </observationRange> </ referenceRange> </observation> </component> <component> <observation moodCode="EVN" classCode="OBS"> <templateId root= "16.840.1.758276.10.20.22.4.2" /> <id nullFlavor="NA" /> < code codeSystem="local" code="789-8" displayName="Blood erythrocytes automated count (number/volume)" /> <statusCode code="completed" /> < effectiveTime value="670326603360" /> <value unit="10*6/uL" xsi:type= "PQ" value="4.79" /> <referenceRange> <observationRange> <text>4.35-5.85</text> </observationRange> </ referenceRange> </observation> </component> <component> <observation moodCode="EVN" classCode="OBS"> <templateId root= "216.840.1.901402.10.20.22.4.2" /> <id nullFlavor="NA" /> < code codeSystem="local" code="64315-8" displayName="Venous blood hemoglobin measurement (mass/volume)" /> <statusCode code="completed" /> <effectiveTime value="221288209559" /> <value unit="g/dL" xsi:type="PQ " value="11.5" /> <referenceRange> <observationRange> <text>11.5-16.0</text> </observationRange> </ referenceRange> </observation> </component> <component> <observation moodCode="EVN" classCode="OBS"> <templateId root= "2.16.840.1.285945.10.20.22.4.2" /> <id nullFlavor="NA" /> < code codeSystem="local" code="50605-5" displayName="Blood hematocrit (volume fraction)" /> <statusCode code="completed" /> <effectiveTime value="753462808186" /> <value unit="%" xsi:type="PQ" value="37" / > <referenceRange> <observationRange> <text>35- 52</text> </observationRange> </referenceRange> </ observation> </component> <component> <observation moodCode= "EVN" classCode="OBS"> <templateId root="2.16.840.1.289827.10.20.22.4.2 " /> <id nullFlavor="NA" /> <code codeSystem="local" code="787 -2" displayName="Automated erythrocyte mean corpuscular volume" /> < statusCode code="completed" /> <effectiveTime value="475244744536" /> <value unit="[foz_us]" xsi:type="PQ" value="77" /> < interpretationCode codeSystem="local" code="" /> <referenceRange> <observationRange> <text>80-99</text> </ observationRange> </referenceRange> </observation> </ component> <component> <observation moodCode="EVN" classCode="OBS"> <templateId root="216.840.1.908445.10.20.22.4.2" /> <id nullFlavor="NA" /> <code codeSystem="local" code="785-6" displayName= "Automated erythrocyte mean corpuscular hemoglobin (mass per erythrocyte)" /> <statusCode code="completed" /> <effectiveTime value= "770940439379" /> <value unit="pg" xsi:type="PQ" value="24" /> <interpretationCode codeSystem="local" code="" /> <referenceRange> <observationRange> <text>25-34</text> </ observationRange> </referenceRange> </observation> </ component> <component> <observation moodCode="EVN" classCode="OBS"> <templateId root="16.840.1.081566.10.22.4.2" /> <id nullFlavor="NA" /> <code codeSystem="local" code="786-4" displayName= "Automated erythrocyte mean corpuscular hemoglobin concentration measurement ( mass/volume)" /> <statusCode code="completed" /> < effectiveTime value="059780201023" /> <value unit="g/dL" xsi:type="PQ" value="31" /> <interpretationCode codeSystem="local" code="" /> <referenceRange> <observationRange> <text>32-36</ text> </observationRange> </referenceRange> </ observation> </component> <component> <observation moodCode= "EVN" classCode="OBS"> <templateId root="216.840.1.114988.10.20.22.4.2 " /> <id nullFlavor="NA" /> <code codeSystem="local" code="788 -0" displayName="Automated erythrocyte distribution width ratio" /> < statusCode code="completed" /> <effectiveTime value="334627358016" /> <value unit="%" xsi:type="PQ" value="17.3" /> < interpretationCode codeSystem="local" code="" /> <referenceRange> <observationRange> <text>10.0-14.5</text> </ observationRange> </referenceRange> </observation> </ component> <component> <observation moodCode="EVN" classCode="OBS"> <templateId root="2.16.840.1.145144.10..22.4.2" /> <id nullFlavor="NA" /> <code codeSystem="local" code="777-3" displayName= "Automated blood platelet count (count/volume)" /> <statusCode code= "completed" /> <effectiveTime value="741903105372" /> <value unit="10*3/uL" xsi:type="PQ" value="456" /> <interpretationCode codeSystem="local" code="" /> <referenceRange> < observationRange> <text>130-400</text> </ observationRange> </referenceRange> </observation> </ component> <component> <observation moodCode="EVN" classCode="OBS"> <templateId root="2.16.840.1.716307.10.20.22.4.2" /> <id nullFlavor="NA" /> <code codeSystem="local" code="65561-4" displayName= "Automated blood platelet mean volume measurement" /> <statusCode code= "completed" /> <effectiveTime value="170609378332" /> <value unit="[foz_us]" xsi:type="PQ" value="9.6" /> <referenceRange> <observationRange> <text>7.4-10.4</text> </ observationRange> </referenceRange> </observation> </ component> <component> <observation moodCode="EVN" classCode="OBS"> <templateId root="2.16.840.1.300944.10.20.22.4.2" /> <id nullFlavor="NA" /> <code codeSystem="local" code="770-8" displayName= "Automated blood neutrophils/100 leukocytes" /> <statusCode code= "completed" /> <effectiveTime value="183540514329" /> <value unit="%" xsi:type="PQ" value="69" /> <referenceRange> < observationRange> <text>42-75</text> </observationRange > </referenceRange> </observation> </component> < component> <observation moodCode="EVN" classCode="OBS"> < templateId root="216.840.1.339320.10..22.4.2" /> <id nullFlavor="NA " /> <code codeSystem="local" code="736-9" displayName="Automated blood lymphocytes/100 leukocytes" /> <statusCode code="completed" /> <effectiveTime value="983964047218" /> <value unit="%" xsi: type="PQ" value="23" /> <referenceRange> <observationRange> <text>12-44</text> </observationRange> </ referenceRange> </observation> </component> <component> <observation moodCode="EVN" classCode="OBS"> <templateId root= "2.16.840.1.048839.10.20.22.4.2" /> <id nullFlavor="NA" /> < code codeSystem="local" code="24021-4" displayName="Blood monocytes/100 leukocytes" /> <statusCode code="completed" /> <effectiveTime value="008358897482" /> <value unit="%" xsi:type="PQ" value="5" /> <referenceRange> <observationRange> <text>0-12 </text> </observationRange> </referenceRange> </ observation> </component> <component> <observation moodCode= "EVN" classCode="OBS"> <templateId root="2.16.840.1.431960.10..22.4.2 " /> <id nullFlavor="NA" /> <code codeSystem="local" code="713 -8" displayName="Automated blood eosinophils/100 leukocytes" /> < statusCode code="completed" /> <effectiveTime value="637386250295" /> <value unit="%" xsi:type="PQ" value="2" /> <referenceRange > <observationRange> <text>0-10</text> </ observationRange> </referenceRange> </observation> </ component> <component> <observation moodCode="EVN" classCode="OBS"> <templateId root="2.16.840.1.989094.10..22.4.2" /> <id nullFlavor="NA" /> <code codeSystem="local" code="706-2" displayName= "Automated blood basophils/100 leukocytes" /> <statusCode code= "completed" /> <effectiveTime value="684459716456" /> <value unit="%" xsi:type="PQ" value="0" /> <referenceRange> < observationRange> <text>0-10</text> </observationRange> </referenceRange> </observation> </component> < component> <observation moodCode="EVN" classCode="OBS"> < templateId root="2.16.840.1.764488.10.20.22.4.2" /> <id nullFlavor="NA " /> <code codeSystem="local" code="751-8" displayName="Blood neutrophils automated count (number/volume)" /> <statusCode code= "completed" /> <effectiveTime value="649084802328" /> <value unit="10*3" xsi:type="PQ" value="7.1" /> <referenceRange> < observationRange> <text>1.8-7.8</text> </ observationRange> </referenceRange> </observation> </ component> <component> <observation moodCode="EVN" classCode="OBS"> <templateId root="2.16.840.1.799240.10..22.4.2" /> <id nullFlavor="NA" /> <code codeSystem="local" code="731-0" displayName= "Blood lymphocytes automated count (number/volume)" /> <statusCode code ="completed" /> <effectiveTime value="557418007865" /> <value unit="10*3" xsi:type="PQ" value="2.4" /> <referenceRange> < observationRange> <text>1.0-4.0</text> </ observationRange> </referenceRange> </observation> </ component> <component> <observation moodCode="EVN" classCode="OBS"> <templateId root="2.16.840.1.231152.10.2022.4.2" /> <id nullFlavor="NA" /> <code codeSystem="local" code="742-7" displayName= "Blood monocytes automated count (number/volume)" /> <statusCode code= "completed" /> <effectiveTime value="589963087667" /> <value unit="10*3" xsi:type="PQ" value="0.6" /> <referenceRange> < observationRange> <text>0.0-1.0</text> </ observationRange> </referenceRange> </observation> </ component> <component> <observation moodCode="EVN" classCode="OBS"> <templateId root="216.840.1.080419.10..22.4.2" /> <id nullFlavor="NA" /> <code codeSystem="local" code="711-2" displayName= "Automated eosinophil count" /> <statusCode code="completed" /> <effectiveTime value="971316637390" /> <value unit="10*3/uL" xsi: type="PQ" value="0.3" /> <referenceRange> <observationRange > <text>0.0-0.3</text> </observationRange> </ referenceRange> </observation> </component> <component> <observation moodCode="EVN" classCode="OBS"> <templateId root= "216.840.1.733794.01.28.22.4.2" /> <id nullFlavor="NA" /> < code codeSystem="local" code="704-7" displayName="Automated blood basophil count (count/volume)" /> <statusCode code="completed" /> < effectiveTime value="163192609357" /> <value unit="10*3/uL" xsi:type= "PQ" value="0.0" /> <referenceRange> <observationRange> <text>0.0-0.1</text> </observationRange> </ referenceRange> </observation> </component> </organizer> </entry > <entry> <organizer moodCode="EVN" classCode="BATTERY"> <templateId root="216.840.1.920604.10..22.4.1" /> <id nullFlavor="NA" /> <code codeSystem="local" code="57840-5" displayName="Comprehensive metabolic panel" / > <statusCode code="completed" /> <component> <observation moodCode="EVN" classCode="OBS"> <templateId root= "2.16.840.1.403265.10.20.22.4.2" /> <id nullFlavor="NA" /> < code codeSystem="local" code="2951-2" displayName="Serum or plasma sodium measurement (moles/volume)" /> <statusCode code="completed" /> <effectiveTime value="969382436294" /> <value unit="mmol/L" xsi:type= "PQ" value="139" /> <referenceRange> <observationRange> <text>135-145</text> </observationRange> </ referenceRange> </observation> </component> <component> <observation moodCode="EVN" classCode="OBS"> <templateId root= "2.16.840.1.236205.10.22.4.2" /> <id nullFlavor="NA" /> < code codeSystem="local" code="2823-3" displayName="Serum or plasma potassium measurement (moles/volume)" /> <statusCode code="completed" /> <effectiveTime value="953970301596" /> <value unit="mmol/L" xsi:type= "PQ" value="4.0" /> <referenceRange> <observationRange> <text>3.6-5.0</text> </observationRange> </ referenceRange> </observation> </component> <component> <observation moodCode="EVN" classCode="OBS"> <templateId root= "2.16.840.1.588211.10.20.22.4.2" /> <id nullFlavor="NA" /> < code codeSystem="local" code="2075-0" displayName="Serum or plasma chloride measurement (moles/volume)" /> <statusCode code="completed" /> <effectiveTime value="735271839988" /> <value unit="mmol/L" xsi:type= "PQ" value="107" /> <referenceRange> <observationRange> <text>98-107</text> </observationRange> </ referenceRange> </observation> </component> <component> <observation moodCode="EVN" classCode="OBS"> <templateId root= "2.16.840.1.200073.10.20.22.4.2" /> <id nullFlavor="NA" /> < code codeSystem="local" code="2027-12" displayName="Carbon dioxide" /> < statusCode code="completed" /> <effectiveTime value="855879785431" /> <value unit="mmol/L" xsi:type="PQ" value="25" /> < referenceRange> <observationRange> <text>21-32</text> </observationRange> </referenceRange> </observation> </component> <component> <observation moodCode="EVN" classCode= "OBS"> <templateId root="216.840.1.772018.10..22.4.2" /> < id nullFlavor="NA" /> <code codeSystem="local" code="23548-1" displayName="Serum or plasma anion gap determination (moles/volume)" /> <statusCode code="completed" /> <effectiveTime value="543293806842" / > <value unit="mmol/L" xsi:type="PQ" value="7" /> < referenceRange> <observationRange> <text>5-14</text> </observationRange> </referenceRange> </observation> </component> <component> <observation moodCode="EVN" classCode= "OBS"> <templateId root="2.16.840.1.887465.10.20.22.4.2" /> < id nullFlavor="NA" /> <code codeSystem="local" code="3094-0" displayName="Serum or plasma urea nitrogen measurement (mass/volume)" /> <statusCode code="completed" /> <effectiveTime value="041535859995" /> <value unit="mg/dL" xsi:type="PQ" value="8" /> < referenceRange> <observationRange> <text>7-18</text> </observationRange> </referenceRange> </observation> </component> <component> <observation moodCode="EVN" classCode= "OBS"> <templateId root="2.16.840.1.025962.10.20.22.4.2" /> < id nullFlavor="NA" /> <code codeSystem="local" code="2160-0" displayName="Serum or plasma creatinine measurement (mass/volume)" /> < statusCode code="completed" /> <effectiveTime value="738162223216" /> <value unit="mg/dL" xsi:type="PQ" value="0.75" /> < referenceRange> <observationRange> <text>0.60-1.30</text > </observationRange> </referenceRange> </observation > </component> <component> <observation moodCode="EVN" classCode="OBS"> <templateId root="2.16.840.1.405550.10.20.22.4.2" /> <id nullFlavor="NA" /> <code codeSystem="local" code="3097-3" displayName="Serum or plasma urea nitrogen/creatinine mass ratio" /> < statusCode code="completed" /> <effectiveTime value="757491213959" /> <value unit="" xsi:type="PQ" value="11" /> <referenceRange> <observationRange> <text>NRG</text> </ observationRange> </referenceRange> </observation> </ component> <component> <observation moodCode="EVN" classCode="OBS"> <templateId root="2.16.840.1.632483.10..22.4.2" /> <id nullFlavor="NA" /> <code codeSystem="local" code="17220-2" displayName= "Serum or plasma creatinine measurement with calculation of estimated glomerular filtration rate" /> <statusCode code="completed" /> <effectiveTime value="811903662400" /> <value unit="" xsi:type="PQ" value=">" /> <referenceRange> <observationRange> <text>NRG</text> </observationRange> </referenceRange > </observation> </component> <component> <observation moodCode="EVN" classCode="OBS"> <templateId root= "2.16.840.1.721769.10..22.4.2" /> <id nullFlavor="NA" /> < code codeSystem="local" code="2345-7" displayName="Serum or plasma glucose measurement (mass/volume)" /> <statusCode code="completed" /> <effectiveTime value="941982516681" /> <value unit="mg/dL" xsi:type="PQ " value="90" /> <referenceRange> <observationRange> <text>70-105</text> </observationRange> </ referenceRange> </observation> </component> <component> <observation moodCode="EVN" classCode="OBS"> <templateId root= "2.16.840.1.160479.10..22.4.2" /> <id nullFlavor="NA" /> < code codeSystem="local" code="78999-3" displayName="Serum or plasma calcium measurement (mass/volume)" /> <statusCode code="completed" /> <effectiveTime value="387394186888" /> <value unit="mg/dL" xsi:type="PQ " value="9.6" /> <referenceRange> <observationRange> <text>8.5-10.1</text> </observationRange> </ referenceRange> </observation> </component> <component> <observation moodCode="EVN" classCode="OBS"> <templateId root= "2.16.840.1.891425.10.20.22.4.2" /> <id nullFlavor="NA" /> < code codeSystem="local" code="1974-05" displayName="Serum or plasma total bilirubin measurement (mass/volume)" /> <statusCode code="completed" / > <effectiveTime value="470675102804" /> <value unit="mg/dL" xsi:type="PQ" value="0.2" /> <referenceRange> < observationRange> <text>0.1-1.0</text> </ observationRange> </referenceRange> </observation> </ component> <component> <observation moodCode="EVN" classCode="OBS"> <templateId root="2.16.840.1.393160.10..22.4.2" /> <id nullFlavor="NA" /> <code codeSystem="local" code="6768-6" displayName= "Serum or plasma alkaline phosphatase measurement (enzymatic activity/volume)" / > <statusCode code="completed" /> <effectiveTime value= "067800436812" /> <value unit="U/L" xsi:type="PQ" value="50" /> <referenceRange> <observationRange> <text>40-136</ text> </observationRange> </referenceRange> </ observation> </component> <component> <observation moodCode= "EVN" classCode="OBS"> <templateId root="2.16.840.1.456962.10.20.22.4.2 " /> <id nullFlavor="NA" /> <code codeSystem="local" code= "1919-11" displayName="Serum or plasma aspartate aminotransferase measurement ( enzymatic activity/volume)" /> <statusCode code="completed" /> <effectiveTime value="276640430667" /> <value unit="U/L" xsi:type="PQ " value="12" /> <referenceRange> <observationRange> <text>5-34</text> </observationRange> </referenceRange > </observation> </component> <component> <observation moodCode="EVN" classCode="OBS"> <templateId root= "2.16.840.1.962658.10..22.4.2" /> <id nullFlavor="NA" /> < code codeSystem="local" code="17405-17" displayName="Serum or plasma alanine aminotransferase measurement (enzymatic activity/volume)" /> < statusCode code="completed" /> <effectiveTime value="084220636922" /> <value unit="U/L" xsi:type="PQ" value="11" /> <referenceRange > <observationRange> <text>0-55</text> </ observationRange> </referenceRange> </observation> </ component> <component> <observation moodCode="EVN" classCode="OBS"> <templateId root="2.16.840.1.241743.10..22.4.2" /> <id nullFlavor="NA" /> <code codeSystem="local" code="2885-" displayName= "Serum or plasma protein measurement (mass/volume)" /> <statusCode code ="completed" /> <effectiveTime value="320341620960" /> <value unit="g/dL" xsi:type="PQ" value="7.4" /> <referenceRange> < observationRange> <text>6.4-8.2</text> </ observationRange> </referenceRange> </observation> </ component> <component> <observation moodCode="EVN" classCode="OBS"> <templateId root="2.16.840.1.535791.10.20.22.4.2" /> <id nullFlavor="NA" /> <code codeSystem="local" code="1750-10" displayName= "Serum or plasma albumin measurement (mass/volume)" /> <statusCode code ="completed" /> <effectiveTime value="925266311788" /> <value unit="g/dL" xsi:type="PQ" value="4.1" /> <referenceRange> < observationRange> <text>3.2-4.5</text> </ observationRange> </referenceRange> </observation> </ component> </organizer> </entry> <entry> <organizer moodCode="EVN" classCode="BATTERY"> <templateId root="2.16.840.1.791170.10.20.22.4.1" /> <id nullFlavor="NA" /> <code codeSystem="local" code="1987-08" displayName="Serum or plasma C reactive protein measurement (mass/volume)" /> <statusCode code="completed" /> <component> <observation moodCode="EVN" classCode="OBS"> <templateId root= "2.16.840.1.845497.10.20.22.4.2" /> <id nullFlavor="NA" /> < code codeSystem="local" code="1987-08" displayName="Serum or plasma C reactive protein measurement (mass/volume)" /> <statusCode code="completed" /> <effectiveTime value="086266114024" /> <value unit="mg/dL" xsi :type="PQ" value="1.27" /> <interpretationCode codeSystem="local" code= "" /> <referenceRange> <observationRange> < text>0.00-0.50</text> </observationRange> </referenceRange> </observation> </component> </organizer> </entry> <entry> < organizer moodCode="EVN" classCode="BATTERY"> <templateId root= "216.840.1.518251.10..22.4.1" /> <id nullFlavor="NA" /> <code codeSystem="local" code="25118-3" displayName="Complete urinalysis with reflex to culture" /> <statusCode code="completed" /> <component> < observation moodCode="EVN" classCode="OBS"> <templateId root= "216.840.1.737964.10..22.4.2" /> <id nullFlavor="NA" /> < code codeSystem="local" code="5778-6" displayName="Urine color determination" / > <statusCode code="completed" /> <effectiveTime value= "815248720878" /> <value unit="" xsi:type="PQ" value="YELLOW" /> <referenceRange> <observationRange> <text>NRG</text > </observationRange> </referenceRange> </observation > </component> <component> <observation moodCode="EVN" classCode="OBS"> <templateId root="16.840.1.768558.10.20.22.4.2" /> <id nullFlavor="NA" /> <code codeSystem="local" code="92253-3 " displayName="Urine clarity determination" /> <statusCode code= "completed" /> <effectiveTime value="370530529749" /> <value unit="" xsi:type="PQ" value="CLEAR" /> <referenceRange> < observationRange> <text>NRG</text> </observationRange> </referenceRange> </observation> </component> < component> <observation moodCode="EVN" classCode="OBS"> < templateId root="216.840.1.702725.10..22.4.2" /> <id nullFlavor="NA " /> <code codeSystem="local" code="5803-2" displayName="Urine pH measurement by test strip" /> <statusCode code="completed" /> <effectiveTime value="864313231743" /> <value unit="" xsi:type="PQ" value="6" /> <referenceRange> <observationRange> <text>5-9</text> </observationRange> </referenceRange> </observation> </component> <component> <observation moodCode="EVN" classCode="OBS"> <templateId root= "216.840.1.839868.10..4.2" /> <id nullFlavor="NA" /> < code codeSystem="local" code="5811-5" displayName="Specific gravity of urine by test strip" /> <statusCode code="completed" /> <effectiveTime value="864099219258" /> <value unit="" xsi:type="PQ" value="1.020" /> <referenceRange> <observationRange> <text>1.016 -1.022</text> </observationRange> </referenceRange> < /observation> </component> <component> <observation moodCode= "EVN" classCode="OBS"> <templateId root="16.840.1.162757.10..22.4.2 " /> <id nullFlavor="NA" /> <code codeSystem="local" code= "20833-5" displayName="Urine protein assay by test strip, semi-quantitative" /> <statusCode code="completed" /> <effectiveTime value= "490992945267" /> <value unit="" xsi:type="PQ" value="NEGATIVE" /> <referenceRange> <observationRange> <text>NEGATIVE </text> </observationRange> </referenceRange> </ observation> </component> <component> <observation moodCode= "EVN" classCode="OBS"> <templateId root="840.1.494969.10.2022.4.2 " /> <id nullFlavor="NA" /> <code codeSystem="local" code= "23150-0" displayName="Urine glucose detection by automated test strip" /> <statusCode code="completed" /> <effectiveTime value="877207215028 " /> <value unit="" xsi:type="PQ" value="NEGATIVE" /> < referenceRange> <observationRange> <text>NEGATIVE</text > </observationRange> </referenceRange> </observation > </component> <component> <observation moodCode="EVN" classCode="OBS"> <templateId root="840.1.317583.102022.4.2" /> <id nullFlavor="NA" /> <code codeSystem="local" code="08726-7 " displayName="Erythrocytes detection in urine sediment by light microscopy" /> <statusCode code="completed" /> <effectiveTime value= "309044363496" /> <value unit="" xsi:type="PQ" value="NEGATIVE" /> <referenceRange> <observationRange> <text>NEGATIVE </text> </observationRange> </referenceRange> </ observation> </component> <component> <observation moodCode= "EVN" classCode="OBS"> <templateId root="840.1.068355.10.2022.4.2 " /> <id nullFlavor="NA" /> <code codeSystem="local" code= "14469-3" displayName="Urine ketones detection by automated test strip" /> <statusCode code="completed" /> <effectiveTime value="980037778938 " /> <value unit="" xsi:type="PQ" value="1+" /> < interpretationCode codeSystem="local" code="*" /> <referenceRange> <observationRange> <text>NEGATIVE</text> </ observationRange> </referenceRange> </observation> </ component> <component> <observation moodCode="EVN" classCode="OBS"> <templateId root="216.840.1.491155.10..22.4.2" /> <id nullFlavor="NA" /> <code codeSystem="local" code="5802-4" displayName= "Urine nitrite detection by test strip" /> <statusCode code="completed " /> <effectiveTime value="564498352900" /> <value unit="" xsi :type="PQ" value="NEGATIVE" /> <referenceRange> < observationRange> <text>NEGATIVE</text> </ observationRange> </referenceRange> </observation> </ component> <component> <observation moodCode="EVN" classCode="OBS"> <templateId root="16.840.1.950574.10..22.4.2" /> <id nullFlavor="NA" /> <code codeSystem="local" code="5770-3" displayName= "Urine total bilirubin detection by test strip" /> <statusCode code= "completed" /> <effectiveTime value="705302278766" /> <value unit="" xsi:type="PQ" value="NEGATIVE" /> <referenceRange> < observationRange> <text>NEGATIVE</text> </ observationRange> </referenceRange> </observation> </ component> <component> <observation moodCode="EVN" classCode="OBS"> <templateId root="05.27.840.1.215840..20.22.4.2" /> <id nullFlavor="NA" /> <code codeSystem="local" code="66285-9" displayName= "Urine urobilinogen measurement by automated test strip (mass/volume)" /> <statusCode code="completed" /> <effectiveTime value="597119805349 " /> <value unit="" xsi:type="PQ" value="NORMAL" /> < referenceRange> <observationRange> <text>NORMAL</text> </observationRange> </referenceRange> </observation> </component> <component> <observation moodCode="EVN" classCode ="OBS"> <templateId root="216.840.1.678398.10.22.4.2" /> < id nullFlavor="NA" /> <code codeSystem="local" code="5799-2" displayName="Urine leukocyte esterase detection by dipstick" /> < statusCode code="completed" /> <effectiveTime value="594862551331" /> <value unit="" xsi:type="PQ" value="1+" /> < interpretationCode codeSystem="local" code="*" /> <referenceRange> <observationRange> <text>NEGATIVE</text> </ observationRange> </referenceRange> </observation> </ component> <component> <observation moodCode="EVN" classCode="OBS"> <templateId root="16.840.1.902234.10..22.4.2" /> <id nullFlavor="NA" /> <code codeSystem="local" code="23759-7" displayName= "Automated urine sediment erythrocyte count by microscopy (number/high power field)" /> <statusCode code="completed" /> <effectiveTime value="624727596919" /> <value unit="" xsi:type="PQ" value="NONE" /> <referenceRange> <observationRange> <text>NRG</ text> </observationRange> </referenceRange> </ observation> </component> <component> <observation moodCode= "EVN" classCode="OBS"> <templateId root="216.840.1.920440.10.20.22.4.2 " /> <id nullFlavor="NA" /> <code codeSystem="local" code= "5821-4" displayName="Automated urine sediment leukocyte count by microscopy ( number/high power field)" /> <statusCode code="completed" /> < effectiveTime value="065347211687" /> <value unit="[HPF]" xsi:type="PQ " value="" /> <referenceRange> <observationRange> <text>NRG</text> </observationRange> </referenceRange> </observation> </component> <component> <observation moodCode="EVN" classCode="OBS"> <templateId root= "05.27.840.1.600943.10..4.2" /> <id nullFlavor="NA" /> < code codeSystem="local" code="13683-8" displayName="Bacteria detection in urine sediment by light microscopy" /> <statusCode code="completed" /> <effectiveTime value="127655727482" /> <value unit="" xsi:type="PQ " value="TRACE" /> <referenceRange> <observationRange> <text>NRG</text> </observationRange> </ referenceRange> </observation> </component> <component> <observation moodCode="EVN" classCode="OBS"> <templateId root= "16.840.1.992346.10.20.22.4.2" /> <id nullFlavor="NA" /> < code codeSystem="local" code="92904-9" displayName="Squamous epithelial cells detection in urine sediment by light microscopy" /> <statusCode code= "completed" /> <effectiveTime value="971339932463" /> <value unit="" xsi:type="PQ" value="5-10" /> <referenceRange> < observationRange> <text>NRG</text> </observationRange> </referenceRange> </observation> </component> < component> <observation moodCode="EVN" classCode="OBS"> < templateId root="216.840.1.533015.10.2022.4.2" /> <id nullFlavor="NA " /> <code codeSystem="local" code="96893-3" displayName="Crystals detection in urine sediment by light microscopy" /> <statusCode code= "completed" /> <effectiveTime value="820428650144" /> <value unit="" xsi:type="PQ" value="NONE" /> <referenceRange> < observationRange> <text>NRG</text> </observationRange> </referenceRange> </observation> </component> < component> <observation moodCode="EVN" classCode="OBS"> < templateId root="05.27.840.1.538184.10.22.4.2" /> <id nullFlavor="NA " /> <code codeSystem="local" code="30390-6" displayName="Casts detection in urine sediment by light microscopy" /> <statusCode code= "completed" /> <effectiveTime value="544727638108" /> <value unit="" xsi:type="PQ" value="NONE" /> <referenceRange> < observationRange> <text>NRG</text> </observationRange> </referenceRange> </observation> </component> < component> <observation moodCode="EVN" classCode="OBS"> < templateId root="216.840.1.858409.10.2022.4.2" /> <id nullFlavor="NA " /> <code codeSystem="local" code="8247-9" displayName="Mucus detection in urine sediment by light microscopy" /> <statusCode code= "completed" /> <effectiveTime value="387680246605" /> <value unit="" xsi:type="PQ" value="SMALL" /> <interpretationCode codeSystem= "local" code="*" /> <referenceRange> <observationRange> <text>NRG</text> </observationRange> </ referenceRange> </observation> </component> <component> <observation moodCode="EVN" classCode="OBS"> <templateId root= "840.1.843943.01.28.22.4.2" /> <id nullFlavor="NA" /> < code codeSystem="local" code="46344-9" displayName="Complete urinalysis with reflex to culture" /> <statusCode code="completed" /> < effectiveTime value="712201120894" /> <value unit="" xsi:type="PQ" value="NO" /> <referenceRange> <observationRange> <text>NRG</text> </observationRange> </referenceRange> </observation> </component> </organizer> </entry> <entry> < organizer moodCode="EVN" classCode="BATTERY"> <templateId root= "840.1.136464.1022.4.1" /> <id nullFlavor="NA" /> <code codeSystem="local" code="60085-5" displayName="Urine drug screening test" /> <statusCode code="completed" /> <component> <observation moodCode ="EVN" classCode="OBS"> <templateId root= "05.27.840.1.125689.102022.4.2" /> <id nullFlavor="NA" /> < code codeSystem="local" code="81025-4" displayName="Urine phencyclidine detection by screening method" /> <statusCode code="completed" /> <effectiveTime value="157914604071" /> <value unit="" xsi:type="PQ " value="NEGATIVE" /> <referenceRange> <observationRange> <text>NEGATIVE</text> </observationRange> </ referenceRange> </observation> </component> <component> <observation moodCode="EVN" classCode="OBS"> <templateId root= "216.840.1.144487.10..22.4.2" /> <id nullFlavor="NA" /> < code codeSystem="local" code="02269-5" displayName="Urine benzodiazepines detection by screening method" /> <statusCode code="completed" /> <effectiveTime value="634220521500" /> <value unit="" xsi:type="PQ " value="NEGATIVE" /> <referenceRange> <observationRange> <text>NEGATIVE</text> </observationRange> </ referenceRange> </observation> </component> <component> <observation moodCode="EVN" classCode="OBS"> <templateId root= "16.840.1.750584.10..22.4.2" /> <id nullFlavor="NA" /> < code codeSystem="local" code="3397-7" displayName="Urine cocaine detection" /> <statusCode code="completed" /> <effectiveTime value= "710350549096" /> <value unit="" xsi:type="PQ" value="NEGATIVE" /> <referenceRange> <observationRange> <text>NEGATIVE </text> </observationRange> </referenceRange> </ observation> </component> <component> <observation moodCode= "EVN" classCode="OBS"> <templateId root="05.27.840.1.769458..20.22.4.2 " /> <id nullFlavor="NA" /> <code codeSystem="local" code= "27919-1" displayName="Urine amphetamines detection by screening method" /> <statusCode code="completed" /> <effectiveTime value= "140689837608" /> <value unit="" xsi:type="PQ" value="NEGATIVE" /> <referenceRange> <observationRange> <text>NEGATIVE </text> </observationRange> </referenceRange> </ observation> </component> <component> <observation moodCode= "EVN" classCode="OBS"> <templateId root="2.16.840.1.640757.10..22.4.2 " /> <id nullFlavor="NA" /> <code codeSystem="local" code= "55819-7" displayName="Urine methamphetamine detection by screening method" /> <statusCode code="completed" /> <effectiveTime value= "945392424878" /> <value unit="" xsi:type="PQ" value="NEGATIVE" /> <referenceRange> <observationRange> <text>NEGATIVE </text> </observationRange> </referenceRange> </ observation> </component> <component> <observation moodCode= "EVN" classCode="OBS"> <templateId root="2.16.840.1.776151.10..22.4.2 " /> <id nullFlavor="NA" /> <code codeSystem="local" code= "37567-3" displayName="Urine cannabinoids detection by screening method" /> <statusCode code="completed" /> <effectiveTime value= "403311059647" /> <value unit="" xsi:type="PQ" value="NEGATIVE" /> <referenceRange> <observationRange> <text>NEGATIVE </text> </observationRange> </referenceRange> </ observation> </component> <component> <observation moodCode= "EVN" classCode="OBS"> <templateId root="216.840.1.270971.10.20.22.4.2 " /> <id nullFlavor="NA" /> <code codeSystem="local" code= "95637-4" displayName="Urine opiates detection by screening method" /> <statusCode code="completed" /> <effectiveTime value="790042238696" /> <value unit="" xsi:type="PQ" value="NEGATIVE" /> < referenceRange> <observationRange> <text>NEGATIVE</text > </observationRange> </referenceRange> </observation > </component> <component> <observation moodCode="EVN" classCode="OBS"> <templateId root="216.840.1.064145.10..22.4.2" /> <id nullFlavor="NA" /> <code codeSystem="local" code="3377-9" displayName="Urine barbiturates detection" /> <statusCode code= "completed" /> <effectiveTime value="755745948126" /> <value unit="" xsi:type="PQ" value="NEGATIVE" /> <referenceRange> < observationRange> <text>NEGATIVE</text> </ observationRange> </referenceRange> </observation> </ component> <component> <observation moodCode="EVN" classCode="OBS"> <templateId root="216.840.1.708674.10.20.22.4.2" /> <id nullFlavor="NA" /> <code codeSystem="local" code="23226-1" displayName= "Screening urine tricyclic antidepressants detection" /> <statusCode code="completed" /> <effectiveTime value="354434696387" /> < value unit="" xsi:type="PQ" value="NEGATIVE" /> <referenceRange> <observationRange> <text>NEGATIVE</text> </ observationRange> </referenceRange> </observation> </ component> <component> <observation moodCode="EVN" classCode="OBS"> <templateId root="216.840.1.828451.10..22.4.2" /> <id nullFlavor="NA" /> <code codeSystem="local" code="58394-6" displayName= "Urine methadone detection by screening method" /> <statusCode code= "completed" /> <effectiveTime value="423550392724" /> <value unit="" xsi:type="PQ" value="NEGATIVE" /> <referenceRange> < observationRange> <text>NEGATIVE</text> </ observationRange> </referenceRange> </observation> </ component> <component> <observation moodCode="EVN" classCode="OBS"> <templateId root="05.27.840.1.048629.10.4.2" /> <id nullFlavor="NA" /> <code codeSystem="local" code="11257-6" displayName= "Urine oxycodone detection" /> <statusCode code="completed" /> <effectiveTime value="536588284145" /> <value unit="" xsi:type="PQ" value="NEGATIVE" /> <referenceRange> <observationRange> <text>NEGATIVE</text> </observationRange> </ referenceRange> </observation> </component> <component> <observation moodCode="EVN" classCode="OBS"> <templateId root= "216.840.1.163923.10...4.2" /> <id nullFlavor="NA" /> < code codeSystem="local" code="29813-6" displayName="Urine propoxyphene detection " /> <statusCode code="completed" /> <effectiveTime value= "475289694327" /> <value unit="" xsi:type="PQ" value="NEGATIVE" /> <referenceRange> <observationRange> <text>NEGATIVE </text> </observationRange> </referenceRange> </ observation> </component> </organizer> </entry> <entry> <organizer moodCode="EVN" classCode="BATTERY"> <templateId root= "16.840.1.287055.10..22.4.1" /> <id nullFlavor="NA" /> <code codeSystem="local" code="55952-2" displayName="Complete urinalysis with reflex to culture" /> <statusCode code="completed" /> <component> < observation moodCode="EVN" classCode="OBS"> <templateId root= "05.27.840.1.074086.10..22.4.2" /> <id nullFlavor="NA" /> < code codeSystem="local" code="5778-6" displayName="Urine color determination" / > <statusCode code="completed" /> <effectiveTime value= "153884994850" /> <value unit="" xsi:type="PQ" value="YELLOW" /> <referenceRange> <observationRange> <text>NRG</text > </observationRange> </referenceRange> </observation > </component> <component> <observation moodCode="EVN" classCode="OBS"> <templateId root="05.27.840.1.625261.10..22.4.2" /> <id nullFlavor="NA" /> <code codeSystem="local" code="37557-8 " displayName="Urine clarity determination" /> <statusCode code= "completed" /> <effectiveTime value="844188488473" /> <value unit="" xsi:type="PQ" value="CLEAR" /> <referenceRange> < observationRange> <text>NRG</text> </observationRange> </referenceRange> </observation> </component> < component> <observation moodCode="EVN" classCode="OBS"> < templateId root="2.16.840.1.791597.10.22.4.2" /> <id nullFlavor="NA " /> <code codeSystem="local" code="5803-2" displayName="Urine pH measurement by test strip" /> <statusCode code="completed" /> <effectiveTime value="099919059955" /> <value unit="" xsi:type="PQ" value="6.5" /> <referenceRange> <observationRange> <text>5-9</text> </observationRange> </referenceRange> </observation> </component> <component> <observation moodCode="EVN" classCode="OBS"> <templateId root= "216.840.1.138069.01.28.22.4.2" /> <id nullFlavor="NA" /> < code codeSystem="local" code="5811-5" displayName="Specific gravity of urine by test strip" /> <statusCode code="completed" /> <effectiveTime value="983685418798" /> <value unit="" xsi:type="PQ" value="1.020" /> <referenceRange> <observationRange> <text>1.016 -1.022</text> </observationRange> </referenceRange> < /observation> </component> <component> <observation moodCode= "EVN" classCode="OBS"> <templateId root="2.16.840.1.081107.10..22.4.2 " /> <id nullFlavor="NA" /> <code codeSystem="local" code= "13376-9" displayName="Urine protein assay by test strip, semi-quantitative" /> <statusCode code="completed" /> <effectiveTime value= "989025147887" /> <value unit="" xsi:type="PQ" value="2+" /> < interpretationCode codeSystem="local" code="*" /> <referenceRange> <observationRange> <text>NEGATIVE</text> </ observationRange> </referenceRange> </observation> </ component> <component> <observation moodCode="EVN" classCode="OBS"> <templateId root="216.840.1.768836.01.28.22.4.2" /> <id nullFlavor="NA" /> <code codeSystem="local" code="90808-8" displayName= "Urine glucose detection by automated test strip" /> <statusCode code= "completed" /> <effectiveTime value="569385930134" /> <value unit="" xsi:type="PQ" value="NEGATIVE" /> <referenceRange> < observationRange> <text>NEGATIVE</text> </ observationRange> </referenceRange> </observation> </ component> <component> <observation moodCode="EVN" classCode="OBS"> <templateId root="05.27.840.1.339911.01.28.22.4.2" /> <id nullFlavor="NA" /> <code codeSystem="local" code="98642-9" displayName= "Erythrocytes detection in urine sediment by light microscopy" /> < statusCode code="completed" /> <effectiveTime value="680909624018" /> <value unit="" xsi:type="PQ" value="3+" /> < interpretationCode codeSystem="local" code="*" /> <referenceRange> <observationRange> <text>NEGATIVE</text> </ observationRange> </referenceRange> </observation> </ component> <component> <observation moodCode="EVN" classCode="OBS"> <templateId root="05.27.840.1.291694.01.28.22.4.2" /> <id nullFlavor="NA" /> <code codeSystem="local" code="93577-5" displayName= "Urine ketones detection by automated test strip" /> <statusCode code= "completed" /> <effectiveTime value="579674101156" /> <value unit="" xsi:type="PQ" value="NEGATIVE" /> <referenceRange> < observationRange> <text>NEGATIVE</text> </ observationRange> </referenceRange> </observation> </ component> <component> <observation moodCode="EVN" classCode="OBS"> <templateId root="2.16.840.1.370355.10..4.2" /> <id nullFlavor="NA" /> <code codeSystem="local" code="5802-4" displayName= "Urine nitrite detection by test strip" /> <statusCode code="completed " /> <effectiveTime value="224957368203" /> <value unit="" xsi :type="PQ" value="NEGATIVE" /> <referenceRange> < observationRange> <text>NEGATIVE</text> </ observationRange> </referenceRange> </observation> </ component> <component> <observation moodCode="EVN" classCode="OBS"> <templateId root="2.16.840.1.611556.10...4.2" /> <id nullFlavor="NA" /> <code codeSystem="local" code="5770-3" displayName= "Urine total bilirubin detection by test strip" /> <statusCode code= "completed" /> <effectiveTime value="578298869665" /> <value unit="" xsi:type="PQ" value="NEGATIVE" /> <referenceRange> < observationRange> <text>NEGATIVE</text> </ observationRange> </referenceRange> </observation> </ component> <component> <observation moodCode="EVN" classCode="OBS"> <templateId root="216.840.1.293426.10..22.4.2" /> <id nullFlavor="NA" /> <code codeSystem="local" code="41028-8" displayName= "Urine urobilinogen measurement by automated test strip (mass/volume)" /> <statusCode code="completed" /> <effectiveTime value="618433293384 " /> <value unit="mg/dL" xsi:type="PQ" value="4" /> < interpretationCode codeSystem="local" code="*" /> <referenceRange> <observationRange> <text>NORMAL</text> </ observationRange> </referenceRange> </observation> </ component> <component> <observation moodCode="EVN" classCode="OBS"> <templateId root="216.840.1.930704...4.2" /> <id nullFlavor="NA" /> <code codeSystem="local" code="5799-2" displayName= "Urine leukocyte esterase detection by dipstick" /> <statusCode code= "completed" /> <effectiveTime value="931804470872" /> <value unit="" xsi:type="PQ" value="1+" /> <interpretationCode codeSystem= "local" code="*" /> <referenceRange> <observationRange> <text>NEGATIVE</text> </observationRange> </ referenceRange> </observation> </component> <component> <observation moodCode="EVN" classCode="OBS"> <templateId root= "216.840.1.667844.10..22.4.2" /> <id nullFlavor="NA" /> < code codeSystem="local" code="80094-7" displayName="Automated urine sediment erythrocyte count by microscopy (number/high power field)" /> < statusCode code="completed" /> <effectiveTime value="425188497619" /> <value unit="[HPF]" xsi:type="PQ" value="" /> <referenceRange > <observationRange> <text>NRG</text> </ observationRange> </referenceRange> </observation> </ component> <component> <observation moodCode="EVN" classCode="OBS"> <templateId root="216.840.1.018621.10.22.4.2" /> <id nullFlavor="NA" /> <code codeSystem="local" code="5821-4" displayName= "Automated urine sediment leukocyte count by microscopy (number/high power field )" /> <statusCode code="completed" /> <effectiveTime value= "492268883249" /> <value unit="" xsi:type="PQ" value="RARE" /> <referenceRange> <observationRange> <text>NRG</text> </observationRange> </referenceRange> </observation> </component> <component> <observation moodCode="EVN" classCode ="OBS"> <templateId root="05.27.840.1.935876.10..4.2" /> < id nullFlavor="NA" /> <code codeSystem="local" code="88580-3" displayName="Bacteria detection in urine sediment by light microscopy" /> <statusCode code="completed" /> <effectiveTime value="285928393483 " /> <value unit="" xsi:type="PQ" value="TRACE" /> < referenceRange> <observationRange> <text>NRG</text> </observationRange> </referenceRange> </observation> </component> <component> <observation moodCode="EVN" classCode= "OBS"> <templateId root="216.840.1.182040.10.20.22.4.2" /> < id nullFlavor="NA" /> <code codeSystem="local" code="72971-4" displayName="Squamous epithelial cells detection in urine sediment by light microscopy" /> <statusCode code="completed" /> <effectiveTime value="932891216745" /> <value unit="" xsi:type="PQ" value="10-25" /> <interpretationCode codeSystem="local" code="*" /> < referenceRange> <observationRange> <text>NRG</text> </observationRange> </referenceRange> </observation> </component> <component> <observation moodCode="EVN" classCode= "OBS"> <templateId root="2.16.840.1.146419.10..22.4.2" /> < id nullFlavor="NA" /> <code codeSystem="local" code="32192-4" displayName="Crystals detection in urine sediment by light microscopy" /> <statusCode code="completed" /> <effectiveTime value="054520975134 " /> <value unit="" xsi:type="PQ" value="NONE" /> < referenceRange> <observationRange> <text>NRG</text> </observationRange> </referenceRange> </observation> </component> <component> <observation moodCode="EVN" classCode= "OBS"> <templateId root="2.16.840.1.560179.10.20.22.4.2" /> < id nullFlavor="NA" /> <code codeSystem="local" code="39379-0" displayName="Casts detection in urine sediment by light microscopy" /> <statusCode code="completed" /> <effectiveTime value="272348673173" /> <value unit="" xsi:type="PQ" value="NONE" /> <referenceRange > <observationRange> <text>NRG</text> </ observationRange> </referenceRange> </observation> </ component> <component> <observation moodCode="EVN" classCode="OBS"> <templateId root="2.16.840.1.836236.10.20.22.4.2" /> <id nullFlavor="NA" /> <code codeSystem="local" code="8247-9" displayName= "Mucus detection in urine sediment by light microscopy" /> <statusCode code="completed" /> <effectiveTime value="165186999542" /> < value unit="" xsi:type="PQ" value="SMALL" /> <interpretationCode codeSystem="local" code="*" /> <referenceRange> < observationRange> <text>NRG</text> </observationRange> </referenceRange> </observation> </component> < component> <observation moodCode="EVN" classCode="OBS"> < templateId root="216.840.1.300898.10..22.4.2" /> <id nullFlavor="NA " /> <code codeSystem="local" code="05378-8" displayName="Complete urinalysis with reflex to culture" /> <statusCode code="completed" /> <effectiveTime value="637117384485" /> <value unit="" xsi:type ="PQ" value="NO" /> <referenceRange> <observationRange> <text>NRG</text> </observationRange> </ referenceRange> </observation> </component> </organizer> </entry > <entry> <organizer moodCode="EVN" classCode="BATTERY"> <templateId root="2.16.840.1.919173.10.20.22.4.1" /> <id nullFlavor="NA" /> <code codeSystem="local" code="41140-8" displayName="Chlamydia trachomatis DNA detection by probe and signal amplification method" /> <statusCode code= "completed" /> <component> <observation moodCode="EVN" classCode= "OBS"> <templateId root="2.16.840.1.526657.10.20.22.4.2" /> < id nullFlavor="NA" /> <code codeSystem="local" code="11207-4" displayName="Chlamydia trachomatis DNA detection by probe and target amplification method" /> <statusCode code="completed" /> < effectiveTime value="753804367664" /> <value unit="" xsi:type="PQ" value="Not Detected" /> <referenceRange> <observationRange> <text>Not Detected</text> </observationRange> </referenceRange> </observation> </component> </organizer> </ entry> <entry> <organizer moodCode="EVN" classCode="BATTERY"> < templateId root="2.16.840.1.216375.10.20.22.4.1" /> <id nullFlavor="NA" /> <code codeSystem="local" code="47795-7" displayName="Neisseria gonorrhoeae DNA detection by probe and signal amplification method" /> < statusCode code="completed" /> <component> <observation moodCode= "EVN" classCode="OBS"> <templateId root="2.16.840.1.491825.10.20.22.4.2 " /> <id nullFlavor="NA" /> <code codeSystem="local" code= "42993-0" displayName="Gonorrhea amp DNA-urine" /> <statusCode code= "completed" /> <effectiveTime value="044843594580" /> <value unit="" xsi:type="PQ" value="Not Detected" /> <referenceRange> <observationRange> <text>Not Detected</text> </ observationRange> </referenceRange> </observation> </ component> </organizer> </entry> <entry> <organizer moodCode="EVN" classCode="BATTERY"> <templateId root="16.840.1.204168.10...4.1" /> <id nullFlavor="NA" /> <code codeSystem="local" code="12083-3" displayName="Bacteria identification in genital specimen by aerobe culture" /> <statusCode code="completed" /> <component> <observation moodCode="EVN" classCode="OBS"> <templateId root= "840.1.704802.01.28.22.4.2" /> <id nullFlavor="NA" /> < code codeSystem="local" code="FTEXTERNAL" displayName="FREE TEXT EXTERNAL" /> <statusCode code="completed" /> <effectiveTime value= "344089645703" /> <value unit="" xsi:type="PQ" value="PLUS NORMAL NYA " /> <referenceRange> <observationRange> <text> NRG</text> </observationRange> </referenceRange> </ observation> </component> <component> <observation moodCode= "EVN" classCode="OBS"> <templateId root="840.1.569799.01.28.224.2 " /> <id nullFlavor="NA" /> <code codeSystem="local" code="G" displayName="QUANTITY OF GROWTH" /> <statusCode code="completed" /> <effectiveTime value="074453815673" /> <value unit="" xsi:type= "PQ" value="Moderate Growth" /> <referenceRange> < observationRange> <text>NRG</text> </observationRange> </referenceRange> </observation> </component> < component> <observation moodCode="EVN" classCode="OBS"> < templateId root="05.27.840.1.966260.01.28.22.4.2" /> <id nullFlavor="NA " /> <code codeSystem="local" code="96092-3" displayName="Bacteria identification in genital specimen by aerobe culture" /> <statusCode code="completed" /> <effectiveTime value="047365786597" /> < value unit="" xsi:type="PQ" value="96310140" /> <referenceRange> <observationRange> <text>NRG</text> </ observationRange> </referenceRange> </observation> </ component> </organizer> </entry> <entry> <organizer moodCode="EVN" classCode="BATTERY"> <templateId root="216.840.1.944364.10.20.22.4.1" /> <id nullFlavor="NA" /> <code codeSystem="local" code="667-6" displayName="Microscopic examination by OLGA preparation" /> <statusCode code="completed" /> <component> <observation moodCode="EVN" classCode="OBS"> <templateId root="16.840.1.580947.10.20.22.4.2" /> <id nullFlavor="NA" /> <code codeSystem="local" code="667-6" displayName="Microscopic examination by OLGA preparation" /> < statusCode code="completed" /> <effectiveTime value="779296662337" /> <value unit="" xsi:type="PQ" value="TNP" /> <referenceRange> <observationRange> <text>NRG</text> </ observationRange> </referenceRange> </observation> </ component> </organizer> </entry> <entry> <organizer moodCode="EVN" classCode="BATTERY"> <templateId root="16.840.1.188871.10.20.22.4.1" /> <id nullFlavor="NA" /> <code codeSystem="local" code="680-9" displayName="Microscopic examination by wet preparation" /> <statusCode code="completed" /> <component> <observation moodCode="EVN" classCode="OBS"> <templateId root="2.16.840.1.048636.10.20.22.4.2" /> <id nullFlavor="NA" /> <code codeSystem="local" code= "WETRESULT" displayName="WET PREP RESULTS" /> <statusCode code= "completed" /> <effectiveTime value="046211465577" /> <value unit="" xsi:type="PQ" value="03-15-17/" /> <referenceRange> <observationRange> <text>NRG</text> </observationRange > </referenceRange> </observation> </component> </ organizer> </entry></section> Encounters ACCT No. Visit Date/Time Discharge Status Pt. Type Provider Facility Loc./Unit Complaint [id number] 03/29/2015 19:10:00 04/22/2015 16:58:00 DIS Inpatient Marianne FISCHER, Sonya Bell [facility] W.9TS [id number] 03/24/2017 00:38:00 03/24/2017 01:59:00 DIS Emergency LAWRENCE WHITESIDE APRN [facility] ER VOMITING, CONTROL CAME OUT W/URINATING [id number] 01/27/2017 17:17:00 01/27/2017 20:18:00 DIS Emergency MARIA ELENA MORA MD [facility] ER DENTAL PAIN/FACE SWELLING [id number] 01/25/2017 20:50:00 01/25/2017 21:44:00 DIS Emergency MAURIZIO THURMAN MD [facility] ER MOUTH ABCESS [id number] 11/22/2016 15:18:00 11/22/2016 17:00:00 DIS Emergency LAWRENCE WHITESIDE APRN [facility] ER RT LEG INJ [id number] 08/23/2016 13:34:00 08/23/2016 16:55:00 DIS Emergency LAWRENCE WHITESIDE SPECIAL EDUCATOR [facility] ER ABD PAIN [id number] 04/12/2016 11:27:00 04/12/2016 12:57:00 DIS Emergency JUAN GONZALEZ DO [facility] ER R LEG OINJ [id number] 12/31/2015 15:00:00 01/01/2016 11:55:00 DIS Inpatient HIEU HINOJOSA MD [facility] ICU SUICIDE ATTEMPT VOL DEPLETION DEPRESSION ANXIETY [id number] 11/20/2015 10:55:00 11/20/2015 12:05:00 DIS Emergency LAWRENCE WHITESIDE SPECIAL EDUCATOR [facility] ER COUGH/CONGESTION SOA [id number] 10/17/2015 08:04:00 10/17/2015 23:59:59 CLS Outpatient KADIE NEVAREZ MD [facility] RAD SPLENOMEGALY [id number] 09/21/2015 14:56:00 09/21/2015 15:46:00 DIS Emergency SANTINO LOPEZ MD [facility] ER BITE/LEFT EYE PASSED OUT [id number] 09/17/2015 13:48:00 09/17/2015 17:20:00 DIS Emergency JUAN GONZALEZ DO [facility] ER HEADACHE/LEFT SIDE NUMBNESS [id number] 05/06/2015 00:09:00 05/06/2015 23:59:59 CLS Preadmit KENYATTA COLEMAN MD [facility] ONC [id number] 02/04/2015 13:33:00 05/05/2015 00:01:00 DIS Outpatient KENYATTA COLEMAN MD [facility] ONC [id number] 03/29/2015 08:08:00 03/29/2015 09:25:00 DIS Emergency VALERIA GUILLERMO MD [facility] ER R KNEE PAIN [id number] 03/10/2015 14:25:00 03/10/2015 23:59:59 CLS Outpatient KADIE NEVAREZ MD [facility] RAD TRANSIENT ALTERATION OF AWARENESS [id number] 01/25/2015 10:51:00 01/25/2015 12:01:00 DIS Emergency LAWRENCE WHITESIDE SPECIAL EDUCATOR [facility] ER DIFF BREATHING/ELEV HEART RATE [id number] 01/09/2015 11:00:00 01/09/2015 23:59:59 CLS Preadmit MARCELLE NELSON SPECIAL EDUCATOR [facility] CARD CHEST PAIN DIZZINESS PALPITATIONS [id number] 12/24/2014 10:42:00 01/08/2015 00:01:00 DIS Outpatient MARCELLE NELSON APRN [facility] CARD CHEST PAIN DIZZINESS PALPITATIONS [id number] 11/03/2014 14:34:00 11/03/2014 15:57:00 DIS Emergency CAMILLE FISCHER, ASHLEY Bell [facility] ER [id number] 10/09/2014 09:52:00 10/09/2014 23:59:59 CLS Outpatient KADIE NEVAREZ MD [facility] RAD [id number] 08/22/2016 21:36:00 Document Registration
--- NOTE | 2017-04-17 13:30 | Diagnostic Imaging Report ---
PROCEDURE: CT head and CT cervical spine without contrast. TECHNIQUE: Multiple contiguous axial images were obtained through the brain and cervical spine without the use of intravenous contrast. Sagittal and coronal reformations through the cervical spine were then performed. INDICATION: Head and neck pain after fall. COMPARISON: Comparison made with prior CT head from 09/17/2015. FINDINGS: The ventricles and sulci are within normal limits. There is no hydrocephalus. There is no midline shift. There is no intracranial mass, hemorrhage, or extra-axial fluid collection. Calvarium is intact. The sinuses and mastoid air cells are clear. There is straightening of the normal cervical lordosis. The vertebral body heights are well maintained. There is no fracture or traumatic subluxation. The odontoid is intact and the lateral masses are well aligned. Prevertebral soft tissues are within normal limits. IMPRESSION: 1. No acute intracranial abnormality. 2. No fracture or traumatic subluxation of the cervical spine. Dictated by: Dictated on workstation # [id number]
--- NOTE | 2017-04-17 13:59 | ED Headache ---
General Chief Complaint: Head/Cervical Problems Stated Complaint: HEADACHE FROM INJURY Nursing Triage Note: PT CO OF HEAD ACHE, PT STATES HAD FALLEN TUESDAY AND HIT FACE, PT HAS SWOLLEN AREA ON R SIDE OF NOSE NEAR EYE. PT STATES NOSE BLED FOR A COUPLE HOURS. PT STATES HIT FACE WHEN TAKING OFF SHIRT. STATES HAS HAD BERRIOS ON AND OFF FOR A FEW DAYS Nursing Sepsis Screen: No Definite Risk History of Present Illness Time seen by provider: 13:54 Initial Comments The patient is a 31-year-old black female who presents today with a chief complaint of headache. She states that on Tuesday she slipped and fell forward her bathtub. She had been taking shower and was going face down towards the tub Spigot. She was able to turn her head and ameliorate the blow. She initially had swelling on the forehead. She has problems with balance anyway but this is seemed to be worse. As the week went on she noted increase in headache when she started back. Her vision is poor and she is unable to say that it is worse. There is no photophobia. Timing/Duration: 1 week Severity/Quality: mild, moderate Location: frontal Modifying Factors: improves with cold therapy Associated Symptoms: fatigue Allergies and Home Medications Allergies Coded Allergies: codeine (Verified Allergy, Severe, ITCHING, HIVES, SOA, 11/03/14) hydrocodone (Verified Allergy, Severe, THROAT SWELLING, PT HAS RECEIVED OXYCODONE IN THE PAST, 12/31/15) latex (Verified Allergy, Severe, BLISTERS, 11/03/14) penicillin (Verified Allergy, Severe, ITCHING, 11/03/14) Sulfa (Sulfonamide Antibiotics) (Verified Allergy, Unknown, RASH, 11/03/14) Home Medications No Active Prescriptions or Reported Meds Constitutional: see HPI Eyes: No Symptoms Reported Ears, Nose, Mouth, Throat: no symptoms reported Respiratory: no symptoms reported Cardiovascular: no symptoms reported Gastrointestinal: no symptoms reported Genitourinary: no symptoms reported Musculoskeletal: no symptoms reported Skin: no symptoms reported Psychiatric/Neurological: No Symptoms Reported Past Tiijfbt-[id number]-Kphfxi Hx Patient Social History Alcohol Use: Occasionally Uses Number of Drinks Today: II Alcohol Beverage of Choice: Other Recreational Drug Use: No Type Used: Cigarettes 2nd Hand Smoke Exposure: Yes Recent Foreign Travel: No Contact w/Someone Who Travel: No Recent Infectious Disease Expo: No Recent Hopitalizations: No Immunizations Up To Date Tetanus Booster (TDap): Less than 5yrs Date of Pneumonia Vaccine: Dec 10, 2014 Seasonal Allergies Seasonal Allergies: No Surgeries History of Surgeries: Yes (RIGHT LOWR LEG FX'S /ORIF & FASCIOTOMY-12 SURG; IVC FILTER ) Surgeries: Orthopedic, 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, Vascular Surgery Respiratory History of Respiratory Disorde: Yes (CHILDHOOD) Respiratory Disorders: Asthma Cardiovascular History of Cardiac Disorders: Yes Cardiac Disorders: Congenital Heart Disease, Deep Vein Thrombosis Neurological History of Neurological Disord: Yes Neurological Disorders: Headaches /Migraines, Stroke 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 System Hx 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 Disorders: No [employer] History: IUD, 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 Genitourinary History of Genitourinary Disor: Yes Genitourinary Disorders: Kidney Stones Gastrointestinal History of Gastrointestinal Di: Yes Gastrointestinal Disorders: Colitis Musculoskeletal History of Musculoskeletal Dis: Yes (CHRONIC NECK AND BACK PAIN; CHRONIC RIGHT LEG PAIN; RIGHT FOOT DROP) Musculoskeletal Disorders: Degenerate Disk Disease, Scoliosis, Chronic Back Pain, Fractures Endocrine History of Endocrine Disorders: Yes Endocrine Disorders: Diabetes, Non-Insulin dep HEENT History of HEENT Disorders: Yes ("LEGALLY BLIND" ) Loss of Vision: Bilateral Cancer History of Cancer: No Psychosocial History of Psychiatric Problem: Yes Behavioral Health Disorders: ADD/ADHD, Anxiety, PTSD, Bipolar, Depression Integumentary History of Skin or Integumenta: No Blood Transfusions History of Blood Disorders: No Family Medical History Significant Family History: No Pertinent Family Hx Family Medial History: Antiphospholipid syndrome 19 MOTHER Diabetes mellitus 19 FATHER G8 BROTHER FH: aneurysm 19 FATHER FH: lupus 19 MOTHER FHx: congestive heart failure 19 FATHER FHx: renal failure 19 MOTHER Heart murmur 19 MOTHER Lupus anticoagulant disorder 19 MOTHER Patent foramen ovale 19 FATHER Barry syndrome G8 SISTER Physical Exam Vital Signs Vital Sign - Last 12Hours 04/17/17 12:50 Temp 97.2 Pulse 90 Resp 18 B/P (MAP) 112/81 (91) Pulse Ox 100 Capillary Refill : Less Than 3 Seconds General Appearance: mild distress HEENT: normal ENT inspection Neck: full range of motion Cardiovascular: normal peripheral pulses, regular rate, rhythm, no edema, no gallop, no JVD, no murmur Respiratory: chest non-tender, lungs clear, normal breath sounds, no respiratory distress, no accessory muscle use Gastrointestinal: normal bowel sounds, non tender, soft, no organomegaly, no pulsatile mass Extremities: other (right foot drop as a result of old injury) Psychiatric: alert, oriented x 3 Crainal Nerves: normal hearing, normal speech, PERRL Coordination/Gait: normal finger to nose Motor/Sensory: no motor deficit, no sensory deficit, no pronator drift Skin: normal color, warm/dry Lymphatic: no adenopathy Progress/Results/Core Measures Results/Orders My Orders Orders - SANTINO LOPEZ MD Ct Head/Cervical Spine Wo (04/17/17 12:58) Vital Signs/I&O Vital Sign - Last 12Hours 04/17/17 12:50 Temp 97.2 Pulse 90 Resp 18 B/P (MAP) 112/81 (91) Pulse Ox 100 Blood Pressure Mean: 91 Point of Care Testing Urine -Bedside: Negative Departure Communication (Admissions) Progress Notes CT scan of head and C-spine negative Impression Impression: Primary Impression: Concussion without loss of consciousness Disposition: HOME, SELF-CARE Condition: Stable/Unchanged Departure-Patient Inst. Decision time for Depature: 14:01 Referrals: HIEU YAP MD (PCP/Family) Primary Care Physician Patient Instructions: Concussion, Adult (DC) Add. Discharge Instructions: All discharge instructions reviewed with patient and/or family. Voiced understanding. Concussion can take a variable time to resolve. Review the materials sent with you relative to concussion. Generally speaking the first order of business is decreasing activity. No reading or watching TV. I would advise you to get an appointment to see Dr. Yap the middle of next week. Scripts No Active Prescriptions or Reported Meds SANTINO LOPEZ MD Apr 17, 2017 13:58
[2017-04-17 14:17] VITALS: BP 116/76
== END 2017-04-17 14:22 | disposition home or self-care (01) ==
LOC: EDUNIT# 12:44 → ER 12:47
DX: S06.0X9A Concussion with loss of consciousness of unspecified duration, initial encounter (principal); J45.909 Unspecified asthma, uncomplicated; G43.909 Migraine, unspecified, not intractable, without status migrainosus; E11.9 Type 2 diabetes mellitus without complications; F43.10 Post-traumatic stress disorder, unspecified; F41.9 Anxiety disorder, unspecified; F31.9 Bipolar disorder, unspecified; Z97.5 Presence of (intrauterine) contraceptive device; Z87.442 Personal history of urinary calculi; Z82.49 Family history of ischemic heart disease and other diseases of the circulatory system; Z86.718 Personal history of other venous thrombosis and embolism; Z87.19 Personal history of other diseases of the digestive system; Z86.73 Personal history of transient ischemic attack (TIA), and cerebral infarction without residual deficits; Z77.22 Contact with and (suspected) exposure to environmental tobacco smoke (acute) (chronic); Z98.51 Tubal ligation status; Z95.828 Presence of other vascular implants and grafts; W01.0XXA Fall on same level from slipping, tripping and stumbling without subsequent striking against object, initial encounter; Y92.002 Bathroom of unspecified non-institutional (private) residence as the place of occurrence of the external cause
CPT/HCPCS: 70450; 72125; 84703; 99282

== ENCOUNTER 2017-06-14 00:14 | Emergency (ER) | payer MEDICAID ==
[~2017-06-14] VITALS: Ht 154.9 cm; Wt 86.2 kg
[~2017-06-14 00:14] MED LIST changes: -FERR-74 PO; +FERR325T18 PO; +NAPR-915 PO; -NAPR500T4 PO
--- OUTSIDE RECORDS SUMMARY | 2017-06-14 00:35 | XMS REPORT | Continuity of Care Document ---
Author Author Organization Address Unknown Phone Unavailable Allergies Active Description Code Type Severity Reaction Onset Reported/Identified Relationship to Patient Clinical Status Yes codeine [id number] Drug Allergy Severe ITCHING, HIVES, 11/03/2014 Yes latex [id number] Drug Allergy Severe BLISTERS 11/03/2014 Yes penicillin [id number] Drug Allergy Severe ITCHING 11/03/2014 Yes Sulfa (Sulfonamide Antibiotics) [id number] Drug Allergy Unknown RASH 2014 Yes latex [...] Drug Allergy Mild RASH 04/15/2015 Yes acetaminophen [id number] Drug Allergy Severe THROAT SWELLING 12/31/2015 Yes hydrocodone [id number] Drug Allergy Severe THROAT SWELLING 12/31/2015 Medications There is no data. Problems Date Dx Coded Attending Type Code Diagnosis Diagnosed By 10/28/2014 KADIE NEVAREZ MD Ot 620.2 10/28/2014 KADIE NEVAREZ MD Ot 626.4 11/03/2014 ASHLEY OBRIEN MD Ot 786.50 11/03/2014 ASHLEY OBRIEN MD Ot V12.54 12/24/2014 KADIE NEVAREZ MD Ot 620.2 12/24/2014 KADIE NEVAREZ MD Ot 626.4 01/08/2015 NWAGWU, ISIDORE O UX UI DESIGNER Ot 745.5 SECUNDUM ATRIAL SEPT DEF 01/08/2015 NWAGWU, ISIDORE O UX UI DESIGNER Ot 780.4 DIZZINESS AND GIDDINESS 01/08/2015 NWAGWU, ISIDORE O UX UI DESIGNER Ot 780.79 OTH MALAISE FATIGUE 01/08/2015 NWAGWU, ISIDORE O UX UI DESIGNER Ot 785.1 PALPITATIONS 01/08/2015 NWAGWU, ISIDORE O UX UI DESIGNER Ot 786.50 CHEST PAIN NOS 01/08/2015 NWAGWU, ISIDORE O UX UI DESIGNER Ot V12.54 PERSONAL HX OF TIA, CEREBRAL INFARCTION 01/25/2015 LAWRENCE WHIETSIDE UX UI DESIGNER Ot E11.9 TYPE 2 DIABETES MELLITUS WITHOUT COMPLIC 01/25/2015 LAWRENCE WHITESIDE UX UI DESIGNER Ot N39.0 URINARY TRACT INFECTION, SITE NOT SPECIF 01/25/2015 LAWRENCE WHITESIDE UX UI DESIGNER Ot R06.02 SHORTNESS OF BREATH 02/04/2015 NWAGWU, ISIDORE O UX UI DESIGNER Ot 745.5 02/04/2015 NWAGWU, ISIDORE O UX UI DESIGNER Ot 780.4 02/04/2015 NWAGWU, ISIDORE O UX UI DESIGNER Ot 780.79 02/04/2015 NWAGWU, ISIDORE O UX UI DESIGNER Ot 785.1 02/04/2015 NWAGWU, ISIDORE O UX UI DESIGNER Ot 786.50 02/04/2015 NWAGWU, ISIDORE O UX UI DESIGNER Ot V12.54 02/21/2015 JARED FISCHER, KENYATTA Andrews [...] MD Ot R40.4 03/29/2015 NWAGWU, ISIDORE O UX UI DESIGNER Ot 745.5 03/29/2015 NWAGWU, ISIDORE O UX UI DESIGNER Ot 780.4 03/29/2015 NWAGWU, ISIDORE O UX UI DESIGNER Ot 780.79 03/29/2015 NWAGWU, ISIDORE O UX UI DESIGNER Ot 785.1 03/29/2015 NWAGWU, ISIDORE O UX UI DESIGNER Ot 786.50 03/29/2015 NWAGWU, ISIDORE O UX UI DESIGNER Ot V12.54 03/29/2015 EAGLE FISCHER, VALERIA Pagan [...] ENCO 03/29/2015 Marianne FISCHER, Sonya Potts Z79.82 SENIOR LIVING (CURRENT) USE OF ASPIRIN 03/31/2015 EAGLE FISCHER, [...] JARED FISCHER, KENYATTA Andrews Ot Z79.899 OTHER ELECTRICIAN ASSISTANT (CURRENT) DRUG THERAPY 05/05/2015 JARED FISCHER, KENYATTA [...] LV BEF SEE 10/17/2015 NWAGWU, ISIDORE O UX UI DESIGNER Ot 745.5 10/17/2015 NWAGWU, ISIDORE O UX UI DESIGNER Ot 780.4 10/17/2015 NWAGWU, ISIDORE O UX UI DESIGNER Ot 780.79 10/17/2015 NWAGWU, ISIDORE O UX UI DESIGNER Ot 785.1 10/17/2015 NWAGWU, ISIDORE O UX UI DESIGNER Ot 786.50 10/17/2015 NWAGWU, ISIDORE O UX UI DESIGNER Ot V12.54 10/17/2015 KADIE NEVAREZ MD Ot [...] 10/17/2015 KENYATTA COLEMAN MD Ot Z79.899 OTHER SENIOR LIVING (CURRENT) DRUG THERAPY 10/17/2015 KENYATTA COLEMAN MD [...] SPLENOMEGALY, NOT ELSEWHERE CLASSIFIED 11/20/2015 LAWRENCE WHITESIDE UX UI DESIGNER Ot J06.9 ACUTE UPPER RESPIRATORY INFECTION, UNSPE 11/20/2015 LAWRENCE WHITESIDE UX UI DESIGNER Ot J40 BRONCHITIS, NOT SPECIFIED ACUTE OR CH 11/20/2015 LAWRENCE WHITESIDE UX UI DESIGNER Ot R05 COUGH 11/24/2015 LAWRENCE WHITESIDE UX UI DESIGNER Ot J06.9 ACUTE UPPER RESPIRATORY INFECTION, UNSPE 11/24/2015 LAWRENCE WHITESIDE UX UI DESIGNER Ot J40 BRONCHITIS, NOT SPECIFIED ACUTE OR CH 11/24/2015 LAWRENCE WHITESIDE UX UI DESIGNER Ot R05 COUGH 12/31/2015 NWAGWU, ISIDORE O UX UI DESIGNER Ot 745.5 12/31/2015 NWAGWU, ISIDORE O UX UI DESIGNER Ot 780.4 12/31/2015 NWAGWU, ISIDORE O UX UI DESIGNER Ot 780.79 12/31/2015 NWAGWU, ISIDORE O UX UI DESIGNER Ot 785.1 12/31/2015 NWAGWU, ISIDORE O UX UI DESIGNER Ot 786.50 12/31/2015 NWAGWU, ISIDORE O UX UI DESIGNER Ot V12.54 12/31/2015 KADIE NEVAREZ MD Ot [...] 12/31/2015 KENYATTA COLEMAN MD Ot Z79.899 OTHER ELECTRICIAN ASSISTANT (CURRENT) DRUG THERAPY 12/31/2015 KENYATTA COLEMAN MD Ot Z86.73 PRSNL HX OF TIA (TIA), AND CEREB INFRC W 12/31/2015 KADIE NEVAREZ MD Ot R16.1 SPLENOMEGALY, NOT ELSEWHERE CLASSIFIED 12/31/2015 NWAGWU, ISIDORE O UX UI DESIGNER Ot 745.5 12/31/2015 NWAGWU, ISIDORE O UX UI DESIGNER Ot 780.4 12/31/2015 NWAGWU, ISIDORE O UX UI DESIGNER Ot 780.79 12/31/2015 NWAGWU, ISIDORE O UX UI DESIGNER Ot 785.1 12/31/2015 NWAGWU, ISIDORE O UX UI DESIGNER Ot 786.50 12/31/2015 NWAGWU, ISIDORE O UX UI DESIGNER Ot V12.54 12/31/2015 KENYATTA COLEMNA MD Ot D64.9 ANEMIA, UNSPECIFIED 12/31/2015 KENYATTA COLEMAN MD Ot E11.9 TYPE 2 DIABETES MELLITUS WITHOUT COMPLIC 12/31/2015 KENYATTA COLEMAN MD Ot E66.9 OBESITY, UNSPECIFIED 12/31/2015 KENYATTA COLEMAN MD Ot F17.210 NICOTINE DEPENDENCE, CIGARETTES, UNCOMPL 12/31/2015 KENYATTA COLEMAN MD Ot I51.9 HEART DISEASE, UNSPECIFIED 12/31/2015 KENYATTA COLEMAN MD Ot M54.5 LOW BACK PAIN 12/31/2015 KENYATTA COLEMAN MD Ot Z79.899 OTHER SENIOR LIVING (CURRENT) DRUG THERAPY 12/31/2015 KENYATTA COLEMAN MD Ot Z86.73 PRSNL HX OF TIA (TIA), AND CEREB INFRC W 12/31/2015 NWAGWU, ISIDORE O UX UI DESIGNER Ot 745.5 12/31/2015 NWAGWU, ISIDORE O UX UI DESIGNER Ot 780.4 12/31/2015 NWAGWU, ISIDORE O UX UI DESIGNER Ot 780.79 12/31/2015 NWAGWU, ISIDORE O UX UI DESIGNER Ot 785.1 12/31/2015 NWAGWU, ISIDORE O UX UI DESIGNER Ot 786.50 12/31/2015 NWAGWU, ISIDORE O UX UI DESIGNER Ot V12.54 12/31/2015 KENYATTA COLEMAN MD Ot [...] 12/31/2015 KENYATTA COLEMAN MD Ot Z79.899 OTHER ELECTRICIAN ASSISTANT (CURRENT) DRUG THERAPY 12/31/2015 KENYATTA COLEMAN MD [...] 01/01/2016 HIEU HINOJOSA MD Ot Z79.899 OTHER ELECTRICIAN ASSISTANT (CURRENT) DRUG THERAPY 01/01/2016 HIEU HINOJOSA MD [...] 01/01/2016 HIEU HINOJOSA MD Ot Z79.899 OTHER SENIOR LIVING (CURRENT) DRUG THERAPY 01/01/2016 HIEU HINOJOSA MD, Ot Z86.718 PERSONAL HISTORY OF OTHER VENOUS THROMBO 01/02/2016 NWAGWU, ISIDORE O UX UI DESIGNER Ot 745.5 01/02/2016 NWAGWU, ISIDORE O UX UI DESIGNER Ot 780.4 01/02/2016 NWAGWU, ISIDORE O UX UI DESIGNER Ot 780.79 01/02/2016 NWAGWU, ISIDORE O UX UI DESIGNER Ot 785.1 01/02/2016 NWAGWU, ISIDORE O UX UI DESIGNER Ot 786.50 01/02/2016 NWAGWU, ISIDORE O UX UI DESIGNER Ot V12.54 01/02/2016 KADIE NEVAREZ MD Ot [...] 01/02/2016 KENYATTA COLEMAN MD Ot Z79.899 OTHER SENIOR LIVING (CURRENT) DRUG THERAPY 01/02/2016 KENYATTA COLEMAN MD Ot Z86.73 PRSNL HX OF TIA (TIA), AND CEREB INFRC W 01/02/2016 KADIE NEVAREZ MD Ot R16.1 SPLENOMEGALY, NOT ELSEWHERE CLASSIFIED 04/12/2016 NWAGWU, ISIDORE O UX UI DESIGNER Ot 745.5 04/12/2016 NWAGWU, ISIDORE O UX UI DESIGNER Ot 780.4 04/12/2016 NWAGWU, ISIDORE O UX UI DESIGNER Ot 780.79 04/12/2016 NWAGWU, ISIDORE O UX UI DESIGNER Ot 785.1 04/12/2016 NWAGWU, ISIDORE O UX UI DESIGNER Ot 786.50 04/12/2016 NWAGWU, ISIDORE O UX UI DESIGNER Ot V12.54 04/12/2016 KADIE NEVAREZ MD Ot [...] 04/12/2016 KENYATTA COLEMAN MD Ot Z79.899 OTHER ELECTRICIAN ASSISTANT (CURRENT) DRUG THERAPY 04/12/2016 KENYATTA COLEMAN MD [...] TYPE 2 DIABETES MELLITUS WITHOUT COMPLIC 04/23/2016 JUAN GONZALEZ DO Ot S93.401A SPRAIN OF [...] NAUSEA WITH VOMITING, UNSPECIFIED 08/23/2016 Ot Z79.82 ELECTRICIAN ASSISTANT ( CURRENT) USE OF ASPIRIN 08/23/2016 Ot Z79.899 OTHER SENIOR LIVING (CURRENT) DRUG THERAPY 08/23/2016 Ot Z86.718 PERSONAL HISTORY OF OTHER VENOUS THROMBO 08/23/2016 Ot Z87.442 PERSONAL HISTORY OF URINARY CALCULI 08/23/2016 Ot Z95.828 PRESENCE OF OTHER VASCULAR IMPLANTS AND 08/23/2016 LAWRENCE WHITESIDE UX UI DESIGNER Ot E11.9 TYPE 2 DIABETES MELLITUS WITHOUT COMPLIC 08/23/2016 LAWRENCE WHITESIDE UX UI DESIGNER Ot R10.31 RIGHT LOWER QUADRANT PAIN 08/23/2016 LAWRENCE WHITESIDE UX UI DESIGNER Ot Z79.82 SENIOR LIVING (CURRENT) USE OF ASPIRIN 08/23/2016 LAWRENCE WHITESIDE UX UI DESIGNER Ot Z79.899 OTHER SENIOR LIVING (CURRENT) DRUG THERAPY 08/23/2016 LAWRENCE WHITESIDE UX UI DESIGNER Ot Z86.718 PERSONAL HISTORY OF OTHER VENOUS THROMBO 08/24/2016 LAWRENCE WHITESIDE UX UI DESIGNER Ot E11.9 TYPE 2 DIABETES MELLITUS WITHOUT COMPLIC 08/24/2016 LAWRENCE WHITESIDE UX UI DESIGNER Ot R10.31 RIGHT LOWER QUADRANT PAIN 08/24/2016 LAWRENCE WHITESIDE UX UI DESIGNER Ot Z79.82 SENIOR LIVING (CURRENT) USE OF ASPIRIN 08/24/2016 LAWRENCE WHITESIDE UX UI DESIGNER Ot Z79.899 OTHER SENIOR LIVING (CURRENT) DRUG THERAPY 08/24/2016 LAWRENCE WHITESIDE UX UI DESIGNER Ot Z86.718 PERSONAL HISTORY OF OTHER VENOUS THROMBO 08/25/2016 LAWRENCE WHITESIDE UX UI DESIGNER Ot E11.9 TYPE 2 DIABETES MELLITUS WITHOUT COMPLIC 08/25/2016 LAWRENCE WHITESIDE UX UI DESIGNER Ot R10.31 RIGHT LOWER QUADRANT PAIN 08/25/2016 LAWRENCE WHITESIDE UX UI DESIGNER Ot Z79.82 ELECTRICIAN ASSISTANT (CURRENT) USE OF ASPIRIN 08/25/2016 LAWRENCE WHITESIDE UX UI DESIGNER Ot Z79.899 OTHER SENIOR LIVING (CURRENT) DRUG THERAPY 08/25/2016 LAWRENCE WHITESIDE UX UI DESIGNER Ot Z86.718 PERSONAL HISTORY OF OTHER VENOUS THROMBO 11/22/2016 LAWRENCE WHITESIDE UX UI DESIGNER Ot E11.9 TYPE 2 DIABETES MELLITUS WITHOUT [...] ANOT 11/22/2016 LAWRENCE WHITESIDE APRN Ot Z79.82 SENIOR LIVING (CURRENT) USE OF ASPIRIN 11/22/2016 LAWRENCE WHITESIDE [...] 01/27/2017 MARIA ELENA MORA MD Ot Z79.82 SENIOR LIVING (CURRENT) USE OF ASPIRIN 01/27/2017 MARIA ELENA MORA MD Ot Z82.49 FAMILY HX OF ISCHEM HEART DIS AND OTH DI 01/27/2017 MARIA ELENA MORA MD Ot Z86.718 PERSONAL HISTORY [...] 01/31/2017 MARIA ELENA MORA MD, Ot Z79.82 SENIOR LIVING (CURRENT) USE OF ASPIRIN 01/31/2017 MARIA ELENA [...] Z87.442 PERSONAL HISTORY OF URINARY CALCULI 01/31/2017 OMRGAN FISCHER, MARIA ELENA Mao Ot Z98.51 TUBAL [...] CONTRACEPTI 03/24/2017 LAWRENCE WHITESIDE APRN Ot Z79.82 ELECTRICIAN ASSISTANT (CURRENT) USE OF ASPIRIN 03/24/2017 LAWRENCE WHITESIDE [...] WHITESIDE APRN Ot Z98.51 TUBAL LIGATION STATUS 04/17/2017 JOHN FISCHER, SANTINO Andrews Ot E11.9 TYPE 2 DIABETES MELLITUS WITHOUT COMPLIC 04/17/2017 SANTINO LOPEZ MD Ot F31.9 BIPOLAR DISORDER, UNSPECIFIED 04/17/2017 SANTINO LOPEZ MD, Ot F41.9 ANXIETY DISORDER, UNSPECIFIED 04/17/2017 SANTINO LOPEZ MD, Ot F43.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 DISORDER, UNSPECIF 04/17/2017 SANTINO LOPEZ MD Ot G43.909 MIGRAINE, UNSP, NOT INTRACTABLE, WITHOUT 04/17/2017 SANTINO LOPEZ MD Ot J45.909 UNSPECIFIED ASTHMA, UNCOMPLICATED 04/17/2017 SANTINO LOPEZ MD Ot R51 HEADACHE 04/17/2017 SANTINO LOPEZ MD, Ot S06.0X9A CONCUSSION W LOSS OF CONSCIOUSNESS OF UN 04/17/2017 SANTINO LOPEZ MD, Ot W01.0XXA FALL SAME LEV FROM SLIP/TRIP W/O STRIKE 04/17/2017 SANTINO LOPEZ MD Ot Y92.002 BATHRM OF UNSP NON-INSTITUT RESDNCE SNGL 04/17/2017 SANTINO LOPEZ MD Ot Z77.22 CNTCT W AND EXPSR TO ENVIRON TOBACCO SMO 04/17/2017 SANTINO LOPEZ MD Ot Z82.49 FAMILY HX OF ISCHEM HEART DIS AND OTH DI 04/17/2017 SANTINO LOPEZ MD Ot Z86.718 PERSONAL HISTORY OF OTHER VENOUS THROMBO 04/17/2017 SANTINO LOPEZ MD Ot Z86.73 PRSNL HX OF TIA (TIA), AND CEREB INFRC W 04/17/2017 SANTINO LOPEZ MD Ot Z87.19 PERSONAL HISTORY OF OTHER DISEASES OF TH 04/17/2017 SANTINO LOPEZ MD Ot Z87.442 PERSONAL HISTORY OF URINARY CALCULI 04/17/2017 SANTINO LOPEZ MD Ot Z95.828 PRESENCE OF OTHER VASCULAR IMPLANTS AND 04/17/2017 SANTINO LOPEZ MD Ot Z97.5 PRESENCE OF (INTRAUTERINE) CONTRACEPTIVE 04/17/2017 SANTINO LOPEZ MD Ot Z98.51 TUBAL LIGATION STATUS 04/19/2017 SANTINO LOPEZ MD Ot E11.9 TYPE 2 DIABETES MELLITUS WITHOUT COMPLIC 04/19/2017 SANTINO LOPEZ MD Ot F31.9 BIPOLAR DISORDER, UNSPECIFIED 04/19/2017 SANTINO LOPEZ MD Ot F41.9 ANXIETY DISORDER, UNSPECIFIED 04/19/2017 SANTINO LOPEZ MD Ot F43.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 DISORDER, UNSPECIF 04/19/2017 SANTINO LOPEZ MD Ot G43.909 MIGRAINE, UNSP, NOT INTRACTABLE, WITHOUT 04/19/2017 SANTINO LOPEZ MD Ot J45.909 UNSPECIFIED ASTHMA, UNCOMPLICATED 04/19/2017 SANTINO LOPEZ MD Ot R51 HEADACHE 04/19/2017 SANTINO LOPEZ MD Ot S06.0X9A CONCUSSION W LOSS OF CONSCIOUSNESS OF UN 04/19/2017 SANTINO LOPEZ MD Ot W01.0XXA FALL SAME LEV FROM SLIP/TRIP W/O STRIKE 04/19/2017 SANTINO LOPEZ MD Ot Y92.002 BATHRM OF [facility] NON-INSTITUT RESDNCE SNGL 04/19/2017 SANTINO LOPEZ MD Ot Z77.22 CNTCT W AND EXPSR TO ENVIRON TOBACCO SMO 04/19/2017 SANTINO LOPEZ MD Ot Z82.49 FAMILY HX OF ISCHEM HEART DIS AND OTH DI 04/19/2017 SANTINO LOPEZ MD Ot Z86.718 PERSONAL HISTORY OF OTHER VENOUS THROMBO 04/19/2017 SANTINO LOPEZ MD Ot Z86.73 PRSNL HX OF TIA (TIA), AND CEREB INFRC W 04/19/2017 SANTINO LOPEZ MD Ot Z87.19 PERSONAL HISTORY OF OTHER DISEASES OF TH 04/19/2017 SANTINO LOPEZ MD Ot Z87.442 PERSONAL HISTORY OF URINARY CALCULI 04/19/2017 SANTINO LOPEZ MD Ot Z95.828 PRESENCE OF OTHER VASCULAR IMPLANTS AND 04/19/2017 SANTINO LOPEZ MD Ot Z97.5 PRESENCE OF (INTRAUTERINE) CONTRACEPTIVE 04/19/2017 SANTINO LOPEZ MD Ot Z98.51 TUBAL LIGATION STATUS Procedures Code Description Performed By Performed On [id number] INSERTION OF INFUSION DEV INTO SUP VENA CAVA, SUKUMAR Lopes MD, Sonya Bell 03/29/2015 [id number] INSERTION OF INTRALUM DEV INTO INF VENA CAVA, SUKUMAR Ambriz MD, Brittani Crowe [id number] EXCISION OF RIGHT UPPER LEG SKIN, EXTERNAL APPROAC FlurrMiles hernandez MD 03/29/2015 [id number] REPLACE R LOW LEG SKIN W AUTOL SUB, PART THICK, EX Miles Ortiz MD 03/29/2015 [id number] DIVISION OF R LOW LEG SUBCU/FASCIA, OPEN APPROACH Sonya Lopes MD 03/29/2015 [id number] REPAIR R LOW LEG SUBCU/ FASCIA, OPEN APPROACH Miles Ortiz MD [id number] REPAIR R LOW LEG SUBCU/ FASCIA, PERC APPROACH Sonya Lopes MD [id number] EXCISION OF RIGHT LOWER LEG MUSCLE, OPEN APPROACH Miles Ortiz MD 03/29/2015 [id number] REMOVAL OF EXT FIX FROM R TIBIA, ELEMENTARY VOCAL MUSIC TEACHER APPROACH Sonya Lopes MD 03/29/2015 [id number] REPOSITION RIGHT TIBIA WITH INT FIX, OPEN APPROACH Sonya Lopes MD 03/29/2015 [id number] REPOSITION RIGHT TIBIA WITH EXT FIX, PERC APPROACH Sonya Lopes MD 03/29/2015 [id number] IRRIGATION OF SKIN AND MUCOUS MEMBRANES USING IRRI Sonya Lopes MD 03/29/2015 [id number] MEASURE CARDIAC ELECTR ACTIVITY, GUIDANCE, ELEMENTARY VOCAL MUSIC TEACHER Sonya Lopes MD 03/29/2015 [id number] FLUOROSCOPY OF INF VENA CAVA USING L OSM CONTRAST, Pb [facility]/2015 <section xmlns="urn:hl7-org:v3" xmlns:xsi= "http://www.3.org/2001/XMLSchema-instance"> <templateId root= "[email or web address]" /> <templateId root= "[email or web address]" /> <code codeSystemName="LOINC" codeSystem= "[id number]" code="23972-8" displayName="Results" /> <title>Results< /title> <text> <table> <thead> [...] <td>MAGNESIUM</td> <td>1.7 mg /dL</td> <td>1.8-2.4</td> </tr> <tr> <th colspan ="10">PROTHROMBIN TIME WITH INR - 03/30/15 10:16</th> </tr> <tr> <td>INTERNATIONAL NORMAL RATIO</td> <td>1.3 </td> <td >0.9-1.1</td> </tr> <tr> <td>PROTHROMBIN TIME</td> <td>14.2 sec</td> <td>9.3-12.2</td> </tr> <tr> <th colspan="10">PARTIAL THROMBOPLASTIN TIME - 03/30/15 10:16</th> </ tr> <tr> <td>PARTIAL THROMBOPLASTIN TIME</td> <td>41 sec</td> <td>23-39</td> </tr> <tr> <th colspan= "10">GLUCOSE (POC) - 03/30/15 10:34</th> </tr> <tr> <td> GLUCOSE (POC)</td> <td>110 mg/dL</td> <td>70-99</td> </ tr> <tr> <th colspan="10">GLUCOSE (POC) - 03/30/15 14:39</th> </tr> <tr> <td>GLUCOSE (POC)</td> <td>99 mg/dL</ td> <td>70-99</td> </tr> <tr> <th colspan="10"> PTT HEPARIN PROTOCOLS - 03/30/15 18:15</th> </tr> <tr> < td>PARTIAL THROMBOPLASTIN TIME</td> <td>84 sec</td> <td>23-39< /td> </tr> <tr> <th colspan="10">GLUCOSE (POC) - 21:32</th> </tr> <tr> <td>GLUCOSE (POC)</td> <td>88 mg/dL</td> <td>70-99</td> </tr> <tr> < colspan="10">CBC - 03/31/15 01:29</th> </tr> <tr> <td> [...] COUNT</td> <td>311 k/cumm< /td> <td>150-400</td> </tr> <tr> <th colspan="10 "> TEST, SERUM - 03/31/15 05:31</th> </tr> <tr> <td> TEST, SERUM</td> <td>NEGATIVE </td> <td>NEGATIVE </td> </tr> <tr> <th colspan="10">GLUCOSE (POC) - 06:23</th> </tr> <tr> <td>GLUCOSE (POC)</td> <td>84 mg/dL</td> <td>70-99</td> </tr> <tr> <th colspan="10">PTT HEPARIN PROTOCOLS - 03/31/15 09:01</th> </tr> [...] (POC)</td> <td>92 mg/dL</ td> <td>70-99</td> </tr> <tr> < colspan="10"> GLUCOSE (POC) - 04/01/15 20:56</th> </tr> <tr> <td> GLUCOSE (POC)</td> <td>119 mg/dL</td> <td>70-99</td> </ tr> <tr> <th colspan="10">GLUCOSE (POC) - 04/02/15 05:33</th> </tr> <tr> <td>GLUCOSE (POC)</td> <td>95 mg/dL</ td> <td>70-99</td> </tr> <tr> < colspan="10"> CBC - 04/02/15 06:39</th> </tr> <tr> [...] > <td>257 k/cumm</td> <td>150-400</td> </tr> <tr > <th colspan="10">PTT HEPARIN PROTOCOLS - 04/02/15 06:39</th> < /tr> <tr> <td>PARTIAL THROMBOPLASTIN TIME</td> <td>74 sec</td> <td>23-39</td> </tr> <tr> <th colspan= "10">GLUCOSE (POC) - 04/02/15 11:20</th> </tr> <tr> <td> GLUCOSE (POC)</td> <td>120 mg/dL</td> <td>70-99</td> </ tr> <tr> <th colspan="10">PTT HEPARIN PROTOCOLS - 04/02/15 12:07 </th> </tr> <tr> <td>PARTIAL THROMBOPLASTIN TIME</td> <td>135 sec</td> <td>23-39</td> </tr> <tr> <th colspan="10">GLUCOSE (POC) - 04/02/15 15:16</th> </tr> <tr > <td>GLUCOSE (POC)</td> <td>90 mg/dL</td> <td>70-99< /td> </tr> <tr> <th colspan="10">PTT HEPARIN PROTOCOLS - 04/02/15 19:21</th> </tr> [...] TIME</td> <td>83 sec</td> <td>23-39 </td> </tr> <tr> < colspan="10">METABOLIC PANEL, BASIC - 04/04/15 05:11</th> </tr> [...] DIOXIDE</td> <td>25 mmol/ L</td> <td>21-32</td> </tr> <tr> < colspan="10 ">GLUCOSE (POC) - 04/04/15 05:19</th> </tr> [...] <td>CARBON DIOXIDE</td> <td>28 mmol/L</td> <td>21-32</td> </tr> <tr> <th colspan="10">CBC - 04/07/15 10:24</th> </tr> <tr> <td>COMMENT</td> [...] (POC)</td> <td>97 mg/dL</td> <td>70-99</td> </tr> <tr> <th colspan="10">PARTIAL THROMBOPLASTIN TIME - 04/08/15 16:49</th> </tr> <tr> <td>PARTIAL THROMBOPLASTIN TIME</td> <td>40 sec</td> <td>23-39</td> </tr> <tr> <th colspan="10">PROTHROMBIN TIME WITH INR - 16:49</th> </tr> <tr> <td>INTERNATIONAL NORMAL RATIO</ td> <td>1.2 </td> <td>0.9-1.1</td> </tr> <tr> <td>PROTHROMBIN TIME</td> <td>13.3 sec</td> <td>9.3- 12.2</td> </tr> <tr> <th colspan="10">CBC - 04/08/15 16: 49</th> </tr> <tr> [...] <td>106 mg/dL</td> <td>70-99</td> </ tr> <tr> <th colspan="10">PTT HEPARIN PROTOCOLS - 04/09/15 00:45 </th> [...] (POC)</td> <td>97 mg/dL</td> <td>70-99</td> </ tr> <tr> < colspan="10">PARTIAL THROMBOPLASTIN TIME - 09:15</th> </tr> <tr> [...] /td> <td>24 mmol/L</td> <td>21-32</td> </tr> <tr > <th colspan="10">CBC - 04/14/15 05:39</th> </tr> <tr> <td>MEAN [...] PLATELET COUNT</td> <td>Note k/cumm</td> <td>150-400</td> </tr> <tr> < colspan="10">PLATELET COUNT - 04/14/15 09:15< /th> </tr> [...] <td>CARBON DIOXIDE</td> <td>23 mmol/L</td> <td>21-32</td> </tr> <tr> <th colspan="10">CBC - 04/16/15 09:29</th> </tr> <tr> <td [...] <td>UR PH</td> <td>6.0 </td> <td>5.0-7.0</td> </tr> <tr> < colspan="10">GLUCOSE (POC) - 04/16/15 10:49</ th> </tr> <tr> <td>GLUCOSE (POC)</td> <td>90 mg/ dL</td> <td>70-99</td> </tr> <tr> < colspan= "10">GLUCOSE (POC) - 04/16/15 14:59</th> </tr> <tr> <td> GLUCOSE (POC)</td> <td>109 mg/dL</td> <td>70-99</td> </ tr> <tr> < colspan="10">GLUCOSE (POC) - 04/16/15 20:36</th> </tr> <tr> [...] (POC)</td> <td>107 mg/dL</td> < td>70-99</td> </tr> <tr> < colspan="10">Complete blood count (CBC) with automated white [...] (count/volume)</td> <td>0.0 10*3/uL</td > <td>0.0-0.1</td> </tr> <tr> <th colspan="10"> Comprehensive metabolic panel - 12/31/15 11:49</th> [...] (mass/volume)</td > <td>4.4 g/dL</td> <td>3.2-4.5</td> </tr> <tr> <th colspan="10">Serum or plasma salicylates measurement (mass/volume ) - 12/31/15 11:49</th> </tr> <tr> <td>Serum or plasma salicylates measurement (mass/volume)</td> <td>< mg/dL</td> <td>5.0-20.0</td> </tr> <tr> <th colspan="10">Serum or plasma acetaminophen measurement (mass/volume) - 12/31/15 11:49</th> </tr > <tr> <td>Serum or plasma acetaminophen measurement (mass/ volume)</td> <td>< ug/mL</td> <td>10-30</td> </tr> <tr> < colspan="10">Serum or plasma ethanol measurement (mass/ volume) [...] buprenophrine screen</td> <td>NEGATIVE </td> <td>NEGATIVE</td> </tr> <tr> < colspan="10"> Capillary blood glucose measurement by glucometer [...] mass/volume)</td> <td>3.4 g/dL</td> <td>3.2-4.5</td> </ tr> <tr> < colspan="10">Serum or plasma phosphate measurement (mass/volume) - [...] measurement (mass/volume)</td> <td>1.27 mg/dL</td> <td>0.00-0.50</td> </tr> <tr> <th colspan="10">Complete urinalysis with reflex to culture - [...] identification in genital specimen by aerobe culture</td> <td>[id number] </td> <td>NRG</td> </tr> <tr> <th colspan="10"> Microscopic examination by [facility]GA preparation - 03/24/17 01:30</th> </tr> <tr> <td>Microscopic examination by [facility] preparation</td> <td>TNP </td> <td>NRG</td> </tr> <tr> <th colspan="10">Microscopic examination by wet preparation - 03/24/17 01:30</th> </tr> <tr> <td>WET PREP RESULTS</td> <td>03-15-17/ KD </td> <td>NRG</td> </tr> </tbody> </table> </text> <entry> <organizer moodCode="EVN" classCode="BATTERY"> <templateId root= "[id number]..4.1" /> <id nullFlavor="NA" /> <code codeSystem="local" code="CBCD" displayName="CBC W/DIFF" /> <statusCode code ="completed" /> <component> <observation moodCode="EVN" classCode= "OBS"> <templateId root="[id number]..4.2" /> < id nullFlavor="NA" /> <code codeSystem="local" code="EO#" displayName= "EOSINOPHIL #" /> <statusCode code="completed" /> < effectiveTime value="" /> <value unit="k/cumm" xsi:type="PQ " value="0.1" /> <referenceRange> <observationRange> <text>0.1-0.5</text> </observationRange> </ referenceRange> </observation> </component> <component> <observation moodCode="EVN" classCode="OBS"> <templateId root= "[id number]...4.2" /> <id nullFlavor="NA" /> < code codeSystem="local" code="EO%" displayName="EOSINOPHIL %" /> <statusCode code="completed" /> <effectiveTime value="" /> <value unit="%" xsi:type="PQ" value="1" /> < interpretationCode codeSystem="local" code="*" /> <referenceRange> <observationRange> <text>2-4</text> </ observationRange> </referenceRange> </observation> </ component> <component> <observation moodCode="EVN" classCode="OBS"> <templateId root="[id number]" /> <id nullFlavor="NA" /> <code codeSystem="local" code="GR#" displayName= "GRANULOCYTE #" /> <statusCode code="completed" /> < effectiveTime value="" /> <value unit="k/cumm" xsi:type="PQ " value="9.5" /> <interpretationCode codeSystem="local" code="*" /> <referenceRange> <observationRange> <text>2.0-9.0 </text> </observationRange> </referenceRange> </ observation> </component> <component> <observation moodCode= "EVN" classCode="OBS"> <templateId root="[id number] " /> <id nullFlavor="NA" /> <code codeSystem="local" code="GR& #37;" displayName="GRANULOCYTE %" /> <statusCode code="completed" / > <effectiveTime value="" /> <value unit="%" xsi:type="PQ" value="73" /> <referenceRange> < observationRange> <text>50-75</text> </observationRange > </referenceRange> </observation> </component> < component> <observation moodCode="EVN" classCode="OBS"> < templateId root="[id number]" /> <id nullFlavor="NA " /> <code codeSystem="local" code="LY#" displayName="LYMPHOCYTE #" /> <statusCode code="completed" /> <effectiveTime value= "" /> <value unit="k/cumm" xsi:type="PQ" value="2.7" /> <referenceRange> <observationRange> <text>1.0-4.0 </text> </observationRange> </referenceRange> </ observation> </component> <component> <observation moodCode= "EVN" classCode="OBS"> <templateId root="[id number].2 " /> <id nullFlavor="NA" /> <code codeSystem="local" code="LY& #37;" displayName="LYMPHOCYTE %" /> <statusCode code="completed" / > <effectiveTime value="" /> <value unit="%" xsi:type="PQ" value="20" /> <referenceRange> < observationRange> <text>20-30</text> </observationRange > </referenceRange> </observation> </component> < component> <observation moodCode="EVN" classCode="OBS"> < templateId root="[id number]" /> <id nullFlavor="NA " /> <code codeSystem="local" code="MCH" displayName="MEAN CELL HGB" / > <statusCode code="completed" /> <effectiveTime value= "" /> <value unit="pg" xsi:type="PQ" value="26.1" /> <interpretationCode codeSystem="local" code="*" /> <referenceRange > <observationRange> <text>27.0-33.0</text> < /observationRange> </referenceRange> </observation> </ component> <component> <observation moodCode="EVN" classCode="OBS"> <templateId root="216.840.1.219723.10.22.4.2" /> <id nullFlavor="NA" /> <code codeSystem="local" code="MCHC" displayName= "MEAN CELL HGB CONCENTRATION" /> <statusCode code="completed" /> <effectiveTime value="" /> <value unit="g/dL" xsi:type= "PQ" value="31.4" /> <interpretationCode codeSystem="local" code="*" / > <referenceRange> <observationRange> <text> 32.0-37.0</text> </observationRange> </referenceRange> </observation> </component> <component> <observation moodCode="EVN" classCode="OBS"> <templateId root= "05.27.840.1.051623.01.28.22.4.2" /> <id nullFlavor="NA" /> < code codeSystem="local" code="MCV" displayName="MEAN CELL VOLUME" /> < statusCode code="completed" /> <effectiveTime value="" /> <value unit="fl" xsi:type="PQ" value="83.1" /> <referenceRange > <observationRange> <text>80.0-100.0</text> </observationRange> </referenceRange> </observation> </ component> <component> <observation moodCode="EVN" classCode="OBS"> <templateId root="05.27.840.1.610871.10.22.4.2" /> <id nullFlavor="NA" /> <code codeSystem="local" code="MO#" displayName= "MONOCYTE #" /> <statusCode code="completed" /> < effectiveTime value="" /> <value unit="k/cumm" xsi:type="PQ " value="0.8" /> <referenceRange> <observationRange> <text>0.1-1.0</text> </observationRange> </ referenceRange> </observation> </component> <component> <observation moodCode="EVN" classCode="OBS"> <templateId root= "216.840.1.100780.10..22.4.2" /> <id nullFlavor="NA" /> < code codeSystem="local" code="MO%" displayName="MONOCYTE %" /> <statusCode code="completed" /> <effectiveTime value="[id number]" /> <value unit="%" xsi:type="PQ" value="6" /> < referenceRange> <observationRange> <text>4-6</text> </observationRange> </referenceRange> </observation> </component> <component> <observation moodCode="EVN" classCode= "OBS"> <templateId root="05.27.840.1.915964.10..4.2" /> < id nullFlavor="NA" /> <code codeSystem="local" code="RBC" displayName= "RED BLOOD CELL" /> <statusCode code="completed" /> < effectiveTime value="" /> <value unit="m/cumm" xsi:type="PQ " value="4.26" /> <referenceRange> <observationRange> <text>4.00-6.00</text> </observationRange> </ referenceRange> </observation> </component> <component> <observation moodCode="EVN" classCode="OBS"> <templateId root= "216.840.1.685635.10.20.22.4.2" /> <id nullFlavor="NA" /> < code codeSystem="local" code="RDW" displayName="RED CELL DISTRIBUTION WIDTH" /> <statusCode code="completed" /> <effectiveTime value= "" /> <value unit="%" xsi:type="PQ" value="15.9" /> <interpretationCode codeSystem="local" code="*" /> < referenceRange> <observationRange> <text>11.0-15.6</text > </observationRange> </referenceRange> </observation > </component> <component> <observation moodCode="EVN" classCode="OBS"> <templateId root="216.840.1.292966.22.4.2" /> <id nullFlavor="NA" /> <code codeSystem="local" code="WBC" displayName="WHITE BLOOD CELL" /> <statusCode code="completed" /> <effectiveTime value="" /> <value unit="k/cumm" xsi: type="PQ" value="13.1" /> <interpretationCode codeSystem="local" code= "*" /> <referenceRange> <observationRange> < text>5.0-10.0</text> </observationRange> </referenceRange> </observation> </component> <component> <observation moodCode="EVN" classCode="OBS"> <templateId root= "216.840.1.326396.102022.4.2" /> <id nullFlavor="NA" /> < code codeSystem="local" code="HGBT" displayName="HEMOGLOBIN" /> < statusCode code="completed" /> <effectiveTime value="" /> <value unit="gm/dL" xsi:type="PQ" value="11.1" /> < interpretationCode codeSystem="local" code="*" /> <referenceRange> <observationRange> <text>12.0-16.0</text> </ observationRange> </referenceRange> </observation> </ component> <component> <observation moodCode="EVN" classCode="OBS"> <templateId root="05.27.840.1.737338.10.20.22.4.2" /> <id nullFlavor="NA" /> <code codeSystem="local" code="HCTT" displayName= "HEMATOCRIT" /> <statusCode code="completed" /> < effectiveTime value="" /> <value unit="%" xsi:type="PQ " value="35.4" /> <interpretationCode codeSystem="local" code="*" /> <referenceRange> <observationRange> <text>37.0- 47.0</text> </observationRange> </referenceRange> </ observation> </component> <component> <observation moodCode= "EVN" classCode="OBS"> <templateId root="05.27.840.1.061112.10..4.2 " /> <id nullFlavor="NA" /> <code codeSystem="local" code="PLT " displayName="PLATELET COUNT" /> <statusCode code="completed" /> <effectiveTime value="" /> <value unit="k/cumm" xsi: type="PQ" value="376" /> <referenceRange> <observationRange > <text>150-400</text> </observationRange> </ referenceRange> </observation> </component> </organizer> </entry > <entry> <organizer moodCode="EVN" classCode="BATTERY"> <templateId root="05.27.840.1.503631.10.20.22.4.1" /> <id nullFlavor="NA" /> <code codeSystem="local" code="PT" displayName="PROTHROMBIN TIME WITH INR" /> < statusCode code="completed" /> <component> <observation moodCode= "EVN" classCode="OBS"> <templateId root="216.840.1.884650.10..4.2 " /> <id nullFlavor="NA" /> <code codeSystem="local" code= "INRX" displayName="INTERNATIONAL NORMAL RATIO" /> <statusCode code= "completed" /> <effectiveTime value="" /> <value unit="" xsi:type="PQ" value="1.1" /> <referenceRange> < observationRange> <text>0.9-1.1</text> </ observationRange> </referenceRange> </observation> </ component> <component> <observation moodCode="EVN" classCode="OBS"> <templateId root="05.27.840.1.142156.01.28.22.4.2" /> <id nullFlavor="NA" /> <code codeSystem="local" code="PTPAT" displayName= "PROTHROMBIN TIME" /> <statusCode code="completed" /> < effectiveTime value="" /> <value unit="sec" xsi:type="PQ" value="12.3" /> <interpretationCode codeSystem="local" code="*" /> <referenceRange> <observationRange> <text>9.3-12.2 </text> </observationRange> </referenceRange> </ observation> </component> </organizer> </entry> <entry> <organizer moodCode="EVN" classCode="BATTERY"> <templateId root= "216.840.1.591656.1022.4.1" /> <id nullFlavor="NA" /> <code codeSystem="local" code="METABC" displayName="METABOLIC PANEL, COMPREHN" /> <statusCode code="completed" /> <component> <observation moodCode= "EVN" classCode="OBS"> <templateId root="216.840.1.299267.10..22.4.2 " /> <id nullFlavor="NA" /> <code codeSystem="local" code="K" displayName="POTASSIUM" /> <statusCode code="completed" /> < effectiveTime value="" /> <value unit="mmol/L" xsi:type="PQ " value="3.4" /> <interpretationCode codeSystem="local" code="*" /> <referenceRange> <observationRange> <text>3.5-5.3 </text> </observationRange> </referenceRange> </ observation> </component> <component> <observation moodCode= "EVN" classCode="OBS"> <templateId root="05.27.840.1.746087.01.28.22.4.2 " /> <id nullFlavor="NA" /> <code codeSystem="local" code= "eGFR" displayName="EST GFR (MDRD)" /> <statusCode code="completed" /> <effectiveTime value="" /> <value unit="mL/min" xsi:type="PQ" value="> 60" /> <referenceRange> < observationRange> <text>> 59</text> </ observationRange> </referenceRange> </observation> </ component> <component> <observation moodCode="EVN" classCode="OBS"> <templateId root="16.840.1.674994.10.22.4.2" /> <id nullFlavor="NA" /> <code codeSystem="local" code="GAP" displayName= "ANION GAP" /> <statusCode code="completed" /> <effectiveTime value="" /> <value unit="mmol/L" xsi:type="PQ" value="13" / > <referenceRange> <observationRange> <text>5- 15</text> </observationRange> </referenceRange> </ observation> </component> <component> <observation moodCode= "EVN" classCode="OBS"> <templateId root="216.840.1.251619.10..22.4.2 " /> <id nullFlavor="NA" /> <code codeSystem="local" code= "eCrCl" displayName="EST CrCl (CG)" /> <statusCode code="completed" /> <effectiveTime value="" /> <value unit="mL/min" xsi:type="PQ" value="> 60" /> <referenceRange> < observationRange> <text>> 59</text> </ observationRange> </referenceRange> </observation> </ component> <component> <observation moodCode="EVN" classCode="OBS"> <templateId root="05.27.840.1.151932.10..22.4.2" /> <id nullFlavor="NA" /> <code codeSystem="local" code="GLU" displayName= "GLUCOSE" /> <statusCode code="completed" /> <effectiveTime value="" /> <value unit="mg/dL" xsi:type="PQ" value="77" / > <referenceRange> <observationRange> <text>70- 99</text> </observationRange> </referenceRange> </ observation> </component> <component> <observation moodCode= "EVN" classCode="OBS"> <templateId root="05.27.840.1.228820.10.20.22.4.2 " /> <id nullFlavor="NA" /> <code codeSystem="local" code="CA " displayName="CALCIUM" /> <statusCode code="completed" /> < effectiveTime value="" /> <value unit="mg/dL" xsi:type="PQ " value="8.8" /> <referenceRange> <observationRange> <text>8.5-10.1</text> </observationRange> </ referenceRange> </observation> </component> <component> <observation moodCode="EVN" classCode="OBS"> <templateId root= "216.840.1.596681.10.22.4.2" /> <id nullFlavor="NA" /> < code codeSystem="local" code="BUN" displayName="BLOOD UREA NITROGEN" /> <statusCode code="completed" /> <effectiveTime value="" / > <value unit="mg/dL" xsi:type="PQ" value="7" /> < referenceRange> <observationRange> <text>7-20</text> </observationRange> </referenceRange> </observation> </component> <component> <observation moodCode="EVN" classCode= "OBS"> <templateId root="16.840.1.095685...4.2" /> < id nullFlavor="NA" /> <code codeSystem="local" code="CREAT" displayName ="CREATININE" /> <statusCode code="completed" /> < effectiveTime value="" /> <value unit="mg/dL" xsi:type="PQ " value="0.8" /> <referenceRange> <observationRange> <text>0.6-1.0</text> </observationRange> </ referenceRange> </observation> </component> <component> <observation moodCode="EVN" classCode="OBS"> <templateId root= "216.840.1.803685.10.2022.4.2" /> <id nullFlavor="NA" /> < code codeSystem="local" code="NA" displayName="SODIUM" /> <statusCode code="completed" /> <effectiveTime value="" /> < value unit="mmol/L" xsi:type="PQ" value="137" /> <referenceRange> <observationRange> <text>135-148</text> </ observationRange> </referenceRange> </observation> </ component> <component> <observation moodCode="EVN" classCode="OBS"> <templateId root="216.840.1.687639.10..22.4.2" /> <id nullFlavor="NA" /> <code codeSystem="local" code="CL" displayName= "CHLORIDE" /> <statusCode code="completed" /> <effectiveTime value="" /> <value unit="mmol/L" xsi:type="PQ" value="100" /> <referenceRange> <observationRange> <text>98 -110</text> </observationRange> </referenceRange> </ observation> </component> <component> <observation moodCode= "EVN" classCode="OBS"> <templateId root="216.840.1.018298.10.20.22.4.2 " /> <id nullFlavor="NA" /> <code codeSystem="local" code="AST " displayName="AST/SGOT" /> <statusCode code="completed" /> < effectiveTime value="" /> <value unit="Units/L" xsi:type= "PQ" value="14" /> <referenceRange> <observationRange> <text>10-37</text> </observationRange> </ referenceRange> </observation> </component> <component> <observation moodCode="EVN" classCode="OBS"> <templateId root= "216.840.1.977597.01.28.22.4.2" /> <id nullFlavor="NA" /> < code codeSystem="local" code="ALT" displayName="ALT/SGPT" /> < statusCode code="completed" /> <effectiveTime value="" /> <value unit="Units/L" xsi:type="PQ" value="17" /> < referenceRange> <observationRange> <text>< 66</text> </observationRange> </referenceRange> </observation > </component> <component> <observation moodCode="EVN" classCode="OBS"> <templateId root="216.840.1.963500.01.28.22.4.2" /> <id nullFlavor="NA" /> <code codeSystem="local" code="CO2" displayName="CARBON DIOXIDE" /> <statusCode code="completed" /> <effectiveTime value="" /> <value unit="mmol/L" xsi:type ="PQ" value="24" /> <referenceRange> <observationRange> <text>21-32</text> </observationRange> </ referenceRange> </observation> </component> <component> <observation moodCode="EVN" classCode="OBS"> <templateId root= "16.840.1.647215.01.28.22.4.2" /> <id nullFlavor="NA" /> < code codeSystem="local" code="TP" displayName="TOTAL PROTEIN" /> < statusCode code="completed" /> <effectiveTime value="" /> <value unit="gm/dL" xsi:type="PQ" value="7.9" /> < referenceRange> <observationRange> <text>6.4-8.2</text> </observationRange> </referenceRange> </observation > </component> <component> <observation moodCode="EVN" classCode="OBS"> <templateId root="16.840.1.661913.10.22.4.2" /> <id nullFlavor="NA" /> <code codeSystem="local" code="ALB" displayName="ALBUMIN" /> <statusCode code="completed" /> < effectiveTime value="" /> <value unit="gm/dL" xsi:type="PQ " value="3.7" /> <referenceRange> <observationRange> <text>3.4-5.0</text> </observationRange> </ referenceRange> </observation> </component> <component> <observation moodCode="EVN" classCode="OBS"> <templateId root= "05.27.840.1.992817...4.2" /> <id nullFlavor="NA" /> < code codeSystem="local" code="BILTOT" displayName="BILI TOTAL" /> < statusCode code="completed" /> <effectiveTime value="" /> <value unit="mg/dL" xsi:type="PQ" value="0.3" /> < referenceRange> <observationRange> <text>0.0-1.0</text> </observationRange> </referenceRange> </observation > </component> <component> <observation moodCode="EVN" classCode="OBS"> <templateId root="05.27.840.1.098411.10.20.22.4.2" /> <id nullFlavor="NA" /> <code codeSystem="local" code="ALKP" displayName="ALKALINE PHOSPHATASE TOTAL" /> <statusCode code="completed " /> <effectiveTime value="" /> <value unit="IU/L " xsi:type="PQ" value="49" /> <referenceRange> < observationRange> <text>45-117</text> </observationRange > </referenceRange> </observation> </component> </ organizer> </entry> <entry> <organizer moodCode="EVN" classCode="BATTERY"> <templateId root="16.840.1.437323.10..22.4.1" /> <id nullFlavor= "NA" /> <code codeSystem="local" code="GLUMON" displayName="GLUCOSE (POC)" /> <statusCode code="completed" /> <component> <observation moodCode="EVN" classCode="OBS"> <templateId root= "05.27.840.1.764448.10..4.2" /> <id nullFlavor="NA" /> < code codeSystem="local" code="GLUMON" displayName="GLUCOSE (POC)" /> < statusCode code="completed" /> <effectiveTime value="384033394385" /> <value unit="mg/dL" xsi:type="PQ" value="105" /> < interpretationCode codeSystem="local" code="*" /> <referenceRange> <observationRange> <text>70-99</text> </ observationRange> </referenceRange> </observation> </ component> </organizer> </entry> <entry> <organizer moodCode="EVN" classCode="BATTERY"> <templateId root="05.27.840.1.319139.10..4.1" /> <id nullFlavor="NA" /> <code codeSystem="local" code="GLUMON" displayName="GLUCOSE (POC)" /> <statusCode code="completed" /> < component> <observation moodCode="EVN" classCode="OBS"> < templateId root="05.27.840.1.519095.10..22.4.2" /> <id nullFlavor="NA " /> <code codeSystem="local" code="GLUMON" displayName="GLUCOSE (POC) " /> <statusCode code="completed" /> <effectiveTime value= "977519096249" /> <value unit="mg/dL" xsi:type="PQ" value="106" /> <interpretationCode codeSystem="local" code="*" /> < referenceRange> <observationRange> <text>70-99</text> </observationRange> </referenceRange> </observation> </component> </organizer> </entry> <entry> <organizer moodCode="EVN " classCode="BATTERY"> <templateId root="16.840.1.618891.10..22.4.1" / > <id nullFlavor="NA" /> <code codeSystem="local" code="CBC" displayName="CBC" /> <statusCode code="completed" /> <component> <observation moodCode="EVN" classCode="OBS"> <templateId root= "16.840.1.709594.10..22.4.2" /> <id nullFlavor="NA" /> < code codeSystem="local" code="MCH" displayName="MEAN CELL HGB" /> < statusCode code="completed" /> <effectiveTime value="053886675401" /> <value unit="pg" xsi:type="PQ" value="26.5" /> < interpretationCode codeSystem="local" code="*" /> <referenceRange> <observationRange> <text>27.0-33.0</text> </ observationRange> </referenceRange> </observation> </ component> <component> <observation moodCode="EVN" classCode="OBS"> <templateId root="05.27.840.1.770820.01.28.22.4.2" /> <id nullFlavor="NA" /> <code codeSystem="local" code="MCHC" displayName= "MEAN CELL HGB CONCENTRATION" /> <statusCode code="completed" /> <effectiveTime value="150022982907" /> <value unit="g/dL" xsi:type= "PQ" value="32.0" /> <referenceRange> <observationRange> <text>32.0-37.0</text> </observationRange> </ referenceRange> </observation> </component> <component> <observation moodCode="EVN" classCode="OBS"> <templateId root= "2.16.840.1.215530.10..22.4.2" /> <id nullFlavor="NA" /> < code codeSystem="local" code="MCV" displayName="MEAN CELL VOLUME" /> < statusCode code="completed" /> <effectiveTime value="745871968466" /> <value unit="fl" xsi:type="PQ" value="83.0" /> <referenceRange > <observationRange> <text>80.0-100.0</text> </observationRange> </referenceRange> </observation> </ component> <component> <observation moodCode="EVN" classCode="OBS"> <templateId root="2.16.840.1.901295.10..22.4.2" /> <id nullFlavor="NA" /> <code codeSystem="local" code="RBC" displayName=" RED BLOOD CELL" /> <statusCode code="completed" /> < effectiveTime value="750660328749" /> <value unit="m/cumm" xsi:type="PQ " value="4.07" /> <referenceRange> <observationRange> <text>4.00-6.00</text> </observationRange> </ referenceRange> </observation> </component> <component> <observation moodCode="EVN" classCode="OBS"> <templateId root= "16.840.1.979189.10.22.4.2" /> <id nullFlavor="NA" /> < code codeSystem="local" code="RDW" displayName="RED CELL DISTRIBUTION WIDTH" /> <statusCode code="completed" /> <effectiveTime value= "835231849886" /> <value unit="%" xsi:type="PQ" value="15.5" /> <referenceRange> <observationRange> <text>11.0- 15.6</text> </observationRange> </referenceRange> </ observation> </component> <component> <observation moodCode= "EVN" classCode="OBS"> <templateId root="05.27.840.1.132076.01.28.22.4.2 " /> <id nullFlavor="NA" /> <code codeSystem="local" code="WBC " displayName="WHITE BLOOD CELL" /> <statusCode code="completed" /> <effectiveTime value="208520528426" /> <value unit="k/cumm" xsi: type="PQ" value="9.1" /> <referenceRange> <observationRange > <text>5.0-10.0</text> </observationRange> </ referenceRange> </observation> </component> <component> <observation moodCode="EVN" classCode="OBS"> <templateId root= "05.27.840.1.072387.10.20.22.4.2" /> <id nullFlavor="NA" /> < code codeSystem="local" code="HGBT" displayName="HEMOGLOBIN" /> < statusCode code="completed" /> <effectiveTime value="533632445247" /> <value unit="gm/dL" xsi:type="PQ" value="10.8" /> < interpretationCode codeSystem="local" code="*" /> <referenceRange> <observationRange> <text>12.0-16.0</text> </ observationRange> </referenceRange> </observation> </ component> <component> <observation moodCode="EVN" classCode="OBS"> <templateId root="2.16.840.1.881239.10..22.4.2" /> <id nullFlavor="NA" /> <code codeSystem="local" code="HCTT" displayName= "HEMATOCRIT" /> <statusCode code="completed" /> < effectiveTime value="731926756657" /> <value unit="%" xsi:type="PQ " value="33.8" /> <interpretationCode codeSystem="local" code="*" /> <referenceRange> <observationRange> <text>37.0- 47.0</text> </observationRange> </referenceRange> </ observation> </component> <component> <observation moodCode= "EVN" classCode="OBS"> <templateId root="16.840.1.699041.01.28.22.4.2 " /> <id nullFlavor="NA" /> <code codeSystem="local" code="PLT " displayName="PLATELET COUNT" /> <statusCode code="completed" /> <effectiveTime value="323818024163" /> <value unit="k/cumm" xsi: type="PQ" value="327" /> <referenceRange> <observationRange > <text>150-400</text> </observationRange> </ referenceRange> </observation> </component> </organizer> </entry > <entry> <organizer moodCode="EVN" classCode="BATTERY"> <templateId root="2.16.840.1.104788.10.22.4.1" /> <id nullFlavor="NA" /> <code codeSystem="local" code="METABC" displayName="METABOLIC PANEL, COMPREHN" /> <statusCode code="completed" /> <component> <observation moodCode= "EVN" classCode="OBS"> <templateId root="840.1.529219.10..4.2 " /> <id nullFlavor="NA" /> <code codeSystem="local" code="K" displayName="POTASSIUM" /> <statusCode code="completed" /> < effectiveTime value="328267860156" /> <value unit="mmol/L" xsi:type="PQ " value="4.0" /> <referenceRange> <observationRange> <text>3.5-5.3</text> </observationRange> </ referenceRange> </observation> </component> <component> <observation moodCode="EVN" classCode="OBS"> <templateId root= "840.1.004235.01.28.22.4.2" /> <id nullFlavor="NA" /> < code codeSystem="local" code="eGFR" displayName="EST GFR (MDRD)" /> < statusCode code="completed" /> <effectiveTime value="077836477308" /> <value unit="mL/min" xsi:type="PQ" value="> 60" /> < referenceRange> <observationRange> <text>> 59</text> </observationRange> </referenceRange> </observation > </component> <component> <observation moodCode="EVN" classCode="OBS"> <templateId root="840.1.938481.01.28.22.4.2" /> <id nullFlavor="NA" /> <code codeSystem="local" code="GAP" displayName="ANION GAP" /> <statusCode code="completed" /> < effectiveTime value="348124617705" /> <value unit="mmol/L" xsi:type="PQ " value="6" /> <referenceRange> <observationRange> <text>5-15</text> </observationRange> </referenceRange > </observation> </component> <component> <observation moodCode="EVN" classCode="OBS"> <templateId root= "216.840.1.733890.10..4.2" /> <id nullFlavor="NA" /> < code codeSystem="local" code="eCrCl" displayName="EST CrCl (CG)" /> < statusCode code="completed" /> <effectiveTime value="873828780890" /> <value unit="mL/min" xsi:type="PQ" value="> 60" /> < referenceRange> <observationRange> <text>> 59</text> </observationRange> </referenceRange> </observation > </component> <component> <observation moodCode="EVN" classCode="OBS"> <templateId root="05.27.840.1.530595.01.28.22.4.2" /> <id nullFlavor="NA" /> <code codeSystem="local" code="GLU" displayName="GLUCOSE" /> <statusCode code="completed" /> < effectiveTime value="610277808022" /> <value unit="mg/dL" xsi:type="PQ " value="96" /> <referenceRange> <observationRange> <text>70-99</text> </observationRange> </ referenceRange> </observation> </component> <component> <observation moodCode="EVN" classCode="OBS"> <templateId root= "16.840.1.686791....4.2" /> <id nullFlavor="NA" /> < code codeSystem="local" code="CA" displayName="CALCIUM" /> <statusCode code="completed" /> <effectiveTime value="789287237120" /> < value unit="mg/dL" xsi:type="PQ" value="8.4" /> <interpretationCode codeSystem="local" code="*" /> <referenceRange> < observationRange> <text>8.5-10.1</text> </ observationRange> </referenceRange> </observation> </ component> <component> <observation moodCode="EVN" classCode="OBS"> <templateId root="2.16.840.1.596301.01.28.224.2" /> <id nullFlavor="NA" /> <code codeSystem="local" code="BUN" displayName= "BLOOD UREA NITROGEN" /> <statusCode code="completed" /> < effectiveTime value="183767393568" /> <value unit="mg/dL" xsi:type="PQ " value="5" /> <interpretationCode codeSystem="local" code="*" /> <referenceRange> <observationRange> <text>7-20</ text> </observationRange> </referenceRange> </ observation> </component> <component> <observation moodCode= "EVN" classCode="OBS"> <templateId root="2.16.840.1.432058.01.28.22.4.2 " /> <id nullFlavor="NA" /> <code codeSystem="local" code= "CREAT" displayName="CREATININE" /> <statusCode code="completed" /> <effectiveTime value="420236092330" /> <value unit="mg/dL" xsi: type="PQ" value="0.6" /> <referenceRange> <observationRange > <text>0.6-1.0</text> </observationRange> </ referenceRange> </observation> </component> <component> <observation moodCode="EVN" classCode="OBS"> <templateId root= "216.840.1.226999.10.4.2" /> <id nullFlavor="NA" /> < code codeSystem="local" code="NA" displayName="SODIUM" /> <statusCode code="completed" /> <effectiveTime value="949294026436" /> < value unit="mmol/L" xsi:type="PQ" value="134" /> <interpretationCode codeSystem="local" code="*" /> <referenceRange> < observationRange> <text>135-148</text> </ observationRange> </referenceRange> </observation> </ component> <component> <observation moodCode="EVN" classCode="OBS"> <templateId root="216.840.1.304143.01.28.22.4.2" /> <id nullFlavor="NA" /> <code codeSystem="local" code="CL" displayName= "CHLORIDE" /> <statusCode code="completed" /> <effectiveTime value="080797241603" /> <value unit="mmol/L" xsi:type="PQ" value="104" /> <referenceRange> <observationRange> <text>98 -110</text> </observationRange> </referenceRange> </ observation> </component> <component> <observation moodCode= "EVN" classCode="OBS"> <templateId root="216.840.1.275279.01.28.22.4.2 " /> <id nullFlavor="NA" /> <code codeSystem="local" code="AST " displayName="AST/SGOT" /> <statusCode code="completed" /> < effectiveTime value="311294358458" /> <value unit="Units/L" xsi:type= "PQ" value="13" /> <referenceRange> <observationRange> <text>10-37</text> </observationRange> </ referenceRange> </observation> </component> <component> <observation moodCode="EVN" classCode="OBS"> <templateId root= "05.27.840.1.925808.10.20.22.4.2" /> <id nullFlavor="NA" /> < code codeSystem="local" code="ALT" displayName="ALT/SGPT" /> < statusCode code="completed" /> <effectiveTime value="719543611769" /> <value unit="Units/L" xsi:type="PQ" value="15" /> < referenceRange> <observationRange> <text>< 66</text> </observationRange> </referenceRange> </observation > </component> <component> <observation moodCode="EVN" classCode="OBS"> <templateId root="840.1.499763.10.4.2" /> <id nullFlavor="NA" /> <code codeSystem="local" code="CO2" displayName="CARBON DIOXIDE" /> <statusCode code="completed" /> <effectiveTime value="137209025557" /> <value unit="mmol/L" xsi:type ="PQ" value="24" /> <referenceRange> <observationRange> <text>21-32</text> </observationRange> </ referenceRange> </observation> </component> <component> <observation moodCode="EVN" classCode="OBS"> <templateId root= "05.27.840.1.051717.10.2022.4.2" /> <id nullFlavor="NA" /> < code codeSystem="local" code="TP" displayName="TOTAL PROTEIN" /> < statusCode code="completed" /> <effectiveTime value="852764718930" /> <value unit="gm/dL" xsi:type="PQ" value="7.3" /> < referenceRange> <observationRange> <text>6.4-8.2</text> </observationRange> </referenceRange> </observation > </component> <component> <observation moodCode="EVN" classCode="OBS"> <templateId root="16.840.1.308568.10.4.2" /> <id nullFlavor="NA" /> <code codeSystem="local" code="ALB" displayName="ALBUMIN" /> <statusCode code="completed" /> < effectiveTime value="792047165004" /> <value unit="gm/dL" xsi:type="PQ " value="3.4" /> <referenceRange> <observationRange> <text>3.4-5.0</text> </observationRange> </ referenceRange> </observation> </component> <component> <observation moodCode="EVN" classCode="OBS"> <templateId root= "05.27.840.1.794939.01.28.22.4.2" /> <id nullFlavor="NA" /> < code codeSystem="local" code="BILTOT" displayName="BILI TOTAL" /> < statusCode code="completed" /> <effectiveTime value="333091427249" /> <value unit="mg/dL" xsi:type="PQ" value="0.5" /> < referenceRange> <observationRange> <text>0.0-1.0</text> </observationRange> </referenceRange> </observation > </component> <component> <observation moodCode="EVN" classCode="OBS"> <templateId root="216.840.1.442953.01.28.22.4.2" /> <id nullFlavor="NA" /> <code codeSystem="local" code="ALKP" displayName="ALKALINE PHOSPHATASE TOTAL" /> <statusCode code="completed " /> <effectiveTime value="599439938601" /> <value unit="IU/L " xsi:type="PQ" value="49" /> <referenceRange> < observationRange> <text>45-117</text> </observationRange > </referenceRange> </observation> </component> </ organizer> </entry> <entry> <organizer moodCode="EVN" classCode="BATTERY"> <templateId root="16.840.1.415790.01.28.22.4.1" /> <id nullFlavor= "NA" /> <code codeSystem="local" code="MAG" displayName="MAGNESIUM" /> <statusCode code="completed" /> <component> <observation moodCode= "EVN" classCode="OBS"> <templateId root="16.840.1.528928.01.28.22.4.2 " /> <id nullFlavor="NA" /> <code codeSystem="local" code="MAG " displayName="MAGNESIUM" /> <statusCode code="completed" /> < effectiveTime value="255380079609" /> <value unit="mg/dL" xsi:type="PQ " value="1.7" /> <interpretationCode codeSystem="local" code="*" /> <referenceRange> <observationRange> <text>1.8-2.4 </text> </observationRange> </referenceRange> </ observation> </component> </organizer> </entry> <entry> <organizer moodCode="EVN" classCode="BATTERY"> <templateId root= "16.840.1.858826.01.28.22.4.1" /> <id nullFlavor="NA" /> <code codeSystem="local" code="PT" displayName="PROTHROMBIN TIME WITH INR" /> < statusCode code="completed" /> <component> <observation moodCode= "EVN" classCode="OBS"> <templateId root="16.840.1.148739.10..22.4.2 " /> <id nullFlavor="NA" /> <code codeSystem="local" code= "INRX" displayName="INTERNATIONAL NORMAL RATIO" /> <statusCode code= "completed" /> <effectiveTime value="233149371282" /> <value unit="" xsi:type="PQ" value="1.3" /> <interpretationCode codeSystem= "local" code="*" /> <referenceRange> <observationRange> <text>0.9-1.1</text> </observationRange> </ referenceRange> </observation> </component> <component> <observation moodCode="EVN" classCode="OBS"> <templateId root= "05.27.840.1.050439..22.4.2" /> <id nullFlavor="NA" /> < code codeSystem="local" code="PTPAT" displayName="PROTHROMBIN TIME" /> <statusCode code="completed" /> <effectiveTime value="713949390587" /> <value unit="sec" xsi:type="PQ" value="14.2" /> < interpretationCode codeSystem="local" code="*" /> <referenceRange> <observationRange> <text>9.3-12.2</text> </ observationRange> </referenceRange> </observation> </ component> </organizer> </entry> <entry> <organizer moodCode="EVN" classCode="BATTERY"> <templateId root="16.840.1.492721.10.2022.4.1" /> <id nullFlavor="NA" /> <code codeSystem="local" code="PTT" displayName ="PARTIAL THROMBOPLASTIN TIME" /> <statusCode code="completed" /> < component> <observation moodCode="EVN" classCode="OBS"> < templateId root="840.1.152325.10..4.2" /> <id nullFlavor="NA " /> <code codeSystem="local" code="PTT" displayName="PARTIAL THROMBOPLASTIN TIME" /> <statusCode code="completed" /> < effectiveTime value="" /> <value unit="sec" xsi:type="PQ" value="41" /> <interpretationCode codeSystem="local" code="*" /> <referenceRange> <observationRange> <text>23-39</ text> </observationRange> </referenceRange> </ observation> </component> </organizer> </entry> <entry> <organizer moodCode="EVN" classCode="BATTERY"> <templateId root= "840.1.346341.01.28.22.4.1" /> <id nullFlavor="NA" /> <code codeSystem="local" code="GLUMON" displayName="GLUCOSE (POC)" /> < statusCode code="completed" /> <component> <observation moodCode= "EVN" classCode="OBS"> <templateId root="840.1.371934.10..4.2 " /> <id nullFlavor="NA" /> <code codeSystem="local" code= "GLUMON" displayName="GLUCOSE (POC)" /> <statusCode code="completed" / > <effectiveTime value="085790653434" /> <value unit="mg/dL" xsi:type="PQ" value="110" /> <interpretationCode codeSystem="local" code="*" /> <referenceRange> <observationRange> <text>70-99</text> </observationRange> </referenceRange> </observation> </component> </organizer> </entry> <entry> < organizer moodCode="EVN" classCode="BATTERY"> <templateId root= "05.27.840.1.040841.10..22.4.1" /> <id nullFlavor="NA" /> <code codeSystem="local" code="GLUMON" displayName="GLUCOSE (POC)" /> < statusCode code="completed" /> <component> <observation moodCode= "EVN" classCode="OBS"> <templateId root="05.27.840.1.243107.10...4.2 " /> <id nullFlavor="NA" /> <code codeSystem="local" code= "GLUMON" displayName="GLUCOSE (POC)" /> <statusCode code="completed" / > <effectiveTime value="181354406859" /> <value unit="mg/dL" xsi:type="PQ" value="99" /> <referenceRange> < observationRange> <text>70-99</text> </observationRange > </referenceRange> </observation> </component> </ organizer> </entry> <entry> <organizer moodCode="EVN" classCode="BATTERY"> <templateId root="05.27.840.1.310866.10..22.4.1" /> <id nullFlavor= "NA" /> <code codeSystem="local" code="PTTH" displayName="PTT HEPARIN PROTOCOLS" /> <statusCode code="completed" /> <component> < observation moodCode="EVN" classCode="OBS"> <templateId root= "05.27.840.1.701984.10..22.4.2" /> <id nullFlavor="NA" /> < code codeSystem="local" code="PTT" displayName="PARTIAL THROMBOPLASTIN TIME" /> <statusCode code="completed" /> <effectiveTime value= "780882220141" /> <value unit="sec" xsi:type="PQ" value="84" /> <interpretationCode codeSystem="local" code="*" /> <referenceRange> <observationRange> <text>23-39</text> </ observationRange> </referenceRange> </observation> </ component> </organizer> </entry> <entry> <organizer moodCode="EVN" classCode="BATTERY"> <templateId root="216.840.1.764892.10..22.4.1" /> <id nullFlavor="NA" /> <code codeSystem="local" code="GLUMON" displayName="GLUCOSE (POC)" /> <statusCode code="completed" /> < component> <observation moodCode="EVN" classCode="OBS"> < templateId root="216.840.1.252660.10.20.22.4.2" /> <id nullFlavor="NA " /> <code codeSystem="local" code="GLUMON" displayName="GLUCOSE (POC) " /> <statusCode code="completed" /> <effectiveTime value= "463521317275" /> <value unit="mg/dL" xsi:type="PQ" value="88" /> <referenceRange> <observationRange> <text>70-99</ text> </observationRange> </referenceRange> </ observation> </component> </organizer> </entry> <entry> <organizer moodCode="EVN" classCode="BATTERY"> <templateId root= "216.840.1.040333.10.20.22.4.1" /> <id nullFlavor="NA" /> <code codeSystem="local" code="CBC" displayName="CBC" /> <statusCode code= "completed" /> <component> <observation moodCode="EVN" classCode= "OBS"> <templateId root="840.1.636308.10..22.4.2" /> < id nullFlavor="NA" /> <code codeSystem="local" code="MCH" displayName= "MEAN CELL HGB" /> <statusCode code="completed" /> < effectiveTime value="159671960946" /> <value unit="pg" xsi:type="PQ" value="26.9" /> <interpretationCode codeSystem="local" code="*" /> <referenceRange> <observationRange> <text>27.0- 33.0</text> </observationRange> </referenceRange> </ observation> </component> <component> <observation moodCode= "EVN" classCode="OBS"> <templateId root="840.1.698735.10.22.4.2 " /> <id nullFlavor="NA" /> <code codeSystem="local" code= "MCHC" displayName="MEAN CELL HGB CONCENTRATION" /> <statusCode code= "completed" /> <effectiveTime value="411022467418" /> <value unit="g/dL" xsi:type="PQ" value="31.8" /> <interpretationCode codeSystem="local" code="*" /> <referenceRange> < observationRange> <text>32.0-37.0</text> </ observationRange> </referenceRange> </observation> </ component> <component> <observation moodCode="EVN" classCode="OBS"> <templateId root="05.27.840.1.585326.10.20.22.4.2" /> <id nullFlavor="NA" /> <code codeSystem="local" code="MCV" displayName= "MEAN CELL VOLUME" /> <statusCode code="completed" /> < effectiveTime value="276486465049" /> <value unit="fl" xsi:type="PQ" value="84.7" /> <referenceRange> <observationRange> <text>80.0-100.0</text> </observationRange> </ referenceRange> </observation> </component> <component> <observation moodCode="EVN" classCode="OBS"> <templateId root= "216.840.1.626394.10.20.22.4.2" /> <id nullFlavor="NA" /> < code codeSystem="local" code="RBC" displayName="RED BLOOD CELL" /> < statusCode code="completed" /> <effectiveTime value="980980634199" /> <value unit="m/cumm" xsi:type="PQ" value="3.79" /> < interpretationCode codeSystem="local" code="*" /> <referenceRange> <observationRange> <text>4.00-6.00</text> </ observationRange> </referenceRange> </observation> </ component> <component> <observation moodCode="EVN" classCode="OBS"> <templateId root="216.840.1.278582.10.20.22.4.2" /> <id nullFlavor="NA" /> <code codeSystem="local" code="RDW" displayName=" RED CELL DISTRIBUTION WIDTH" /> <statusCode code="completed" /> <effectiveTime value="184894783056" /> <value unit="%" xsi:type= "PQ" value="15.5" /> <referenceRange> <observationRange> <text>11.0-15.6</text> </observationRange> </ referenceRange> </observation> </component> <component> <observation moodCode="EVN" classCode="OBS"> <templateId root= "05.27.840.1.442482.10.20.22.4.2" /> <id nullFlavor="NA" /> < code codeSystem="local" code="WBC" displayName="WHITE BLOOD CELL" /> < statusCode code="completed" /> <effectiveTime value="" /> <value unit="k/cumm" xsi:type="PQ" value="10.0" /> < referenceRange> <observationRange> <text>5.0-10.0</text > </observationRange> </referenceRange> </observation > </component> <component> <observation moodCode="EVN" classCode="OBS"> <templateId root="840.1.479778.102022.4.2" /> <id nullFlavor="NA" /> <code codeSystem="local" code="HGBT" displayName="HEMOGLOBIN" /> <statusCode code="completed" /> < effectiveTime value="" /> <value unit="gm/dL" xsi:type="PQ " value="10.2" /> <interpretationCode codeSystem="local" code="*" /> <referenceRange> <observationRange> <text>12.0- 16.0</text> </observationRange> </referenceRange> </ observation> </component> <component> <observation moodCode= "EVN" classCode="OBS"> <templateId root="840.1.582946.10.20.22.4.2 " /> <id nullFlavor="NA" /> <code codeSystem="local" code= "HCTT" displayName="HEMATOCRIT" /> <statusCode code="completed" /> <effectiveTime value="" /> <value unit="%" xsi: type="PQ" value="32.1" /> <interpretationCode codeSystem="local" code= "*" /> <referenceRange> <observationRange> < text>37.0-47.0</text> </observationRange> </referenceRange> </observation> </component> <component> <observation moodCode="EVN" classCode="OBS"> <templateId root= "16.840.1.617312.10..22.4.2" /> <id nullFlavor="NA" /> < code codeSystem="local" code="PLT" displayName="PLATELET COUNT" /> < statusCode code="completed" /> <effectiveTime value="602748093328" /> <value unit="k/cumm" xsi:type="PQ" value="296" /> < referenceRange> <observationRange> <text>150-400</text> </observationRange> </referenceRange> </observation > </component> </organizer> </entry> <entry> <organizer moodCode= "EVN" classCode="BATTERY"> <templateId root="05.27.840.1.319968.10..22.4.1 " /> <id nullFlavor="NA" /> <code codeSystem="local" code="PTTH" displayName="PTT HEPARIN PROTOCOLS" /> <statusCode code="completed" /> <component> <observation moodCode="EVN" classCode="OBS"> < templateId root="05.27.840.1.038126.10..22.4.2" /> <id nullFlavor="NA " /> <code codeSystem="local" code="PTT" displayName="PARTIAL THROMBOPLASTIN TIME" /> <statusCode code="completed" /> < effectiveTime value="902964046488" /> <value unit="sec" xsi:type="PQ" value="175" /> <interpretationCode codeSystem="local" code="" /> <referenceRange> <observationRange> <text>23-39</ text> </observationRange> </referenceRange> </ observation> </component> </organizer> </entry> <entry> <organizer moodCode="EVN" classCode="BATTERY"> <templateId root= "16.840.1.879309.10..22.4.1" /> <id nullFlavor="NA" /> <code codeSystem="local" code="METABC" displayName="METABOLIC PANEL, COMPREHN" /> <statusCode code="completed" /> <component> <observation moodCode= "EVN" classCode="OBS"> <templateId root="216.840.1.439209.01.28.22.4.2 " /> <id nullFlavor="NA" /> <code codeSystem="local" code="K" displayName="POTASSIUM" /> <statusCode code="completed" /> < effectiveTime value="" /> <value unit="mmol/L" xsi:type="PQ " value="4.0" /> <referenceRange> <observationRange> <text>3.5-5.3</text> </observationRange> </ referenceRange> </observation> </component> <component> <observation moodCode="EVN" classCode="OBS"> <templateId root= "05.27.840.1.698049.01.28.22.4.2" /> <id nullFlavor="NA" /> < code codeSystem="local" code="eGFR" displayName="EST GFR (MDRD)" /> < statusCode code="completed" /> <effectiveTime value="278938427640" /> <value unit="mL/min" xsi:type="PQ" value="> 60" /> < referenceRange> <observationRange> <text>> 59</text> </observationRange> </referenceRange> </observation > </component> <component> <observation moodCode="EVN" classCode="OBS"> <templateId root="216.840.1.119654.10..22.4.2" /> <id nullFlavor="NA" /> <code codeSystem="local" code="GAP" displayName="ANION GAP" /> <statusCode code="completed" /> < effectiveTime value="" /> <value unit="mmol/L" xsi:type="PQ " value="6" /> <referenceRange> <observationRange> <text>5-15</text> </observationRange> </referenceRange > </observation> </component> <component> <observation moodCode="EVN" classCode="OBS"> <templateId root= "2.840.1.925047.01.28.22.4.2" /> <id nullFlavor="NA" /> < code codeSystem="local" code="eCrCl" displayName="EST CrCl (CG)" /> < statusCode code="completed" /> <effectiveTime value="" /> <value unit="mL/min" xsi:type="PQ" value="> 60" /> < referenceRange> <observationRange> <text>> 59</text> </observationRange> </referenceRange> </observation > </component> <component> <observation moodCode="EVN" classCode="OBS"> <templateId root="16.840.1.132141....4.2" /> <id nullFlavor="NA" /> <code codeSystem="local" code="GLU" displayName="GLUCOSE" /> <statusCode code="completed" /> < effectiveTime value="" /> <value unit="mg/dL" xsi:type="PQ " value="81" /> <referenceRange> <observationRange> <text>70-99</text> </observationRange> </ referenceRange> </observation> </component> <component> <observation moodCode="EVN" classCode="OBS"> <templateId root= "16.840.1.816868.10.20.22.4.2" /> <id nullFlavor="NA" /> < code codeSystem="local" code="CA" displayName="CALCIUM" /> <statusCode code="completed" /> <effectiveTime value="946799851185" /> < value unit="mg/dL" xsi:type="PQ" value="8.1" /> <interpretationCode codeSystem="local" code="*" /> <referenceRange> < observationRange> <text>8.5-10.1</text> </ observationRange> </referenceRange> </observation> </ component> <component> <observation moodCode="EVN" classCode="OBS"> <templateId root="05.27.840.1.226014.10...4.2" /> <id nullFlavor="NA" /> <code codeSystem="local" code="BUN" displayName= "BLOOD UREA NITROGEN" /> <statusCode code="completed" /> < effectiveTime value="066752755817" /> <value unit="mg/dL" xsi:type="PQ " value="5" /> <interpretationCode codeSystem="local" code="*" /> <referenceRange> <observationRange> <text>7-20</ text> </observationRange> </referenceRange> </ observation> </component> <component> <observation moodCode= "EVN" classCode="OBS"> <templateId root="05.27.840.1.898435.10.20.22.4.2 " /> <id nullFlavor="NA" /> <code codeSystem="local" code= "CREAT" displayName="CREATININE" /> <statusCode code="completed" /> <effectiveTime value="" /> <value unit="mg/dL" xsi: type="PQ" value="0.6" /> <referenceRange> <observationRange > <text>0.6-1.0</text> </observationRange> </ referenceRange> </observation> </component> <component> <observation moodCode="EVN" classCode="OBS"> <templateId root= "216.840.1.508144.10..22.4.2" /> <id nullFlavor="NA" /> < code codeSystem="local" code="NA" displayName="SODIUM" /> <statusCode code="completed" /> <effectiveTime value="" /> < value unit="mmol/L" xsi:type="PQ" value="138" /> <referenceRange> <observationRange> <text>135-148</text> </ observationRange> </referenceRange> </observation> </ component> <component> <observation moodCode="EVN" classCode="OBS"> <templateId root="16.840.1.620083.10..22.4.2" /> <id nullFlavor="NA" /> <code codeSystem="local" code="CL" displayName= "CHLORIDE" /> <statusCode code="completed" /> <effectiveTime value="" /> <value unit="mmol/L" xsi:type="PQ" value="105" /> <referenceRange> <observationRange> <text>98 -110</text> </observationRange> </referenceRange> </ observation> </component> <component> <observation moodCode= "EVN" classCode="OBS"> <templateId root="16.840.1.511784.1022.4.2 " /> <id nullFlavor="NA" /> <code codeSystem="local" code="AST " displayName="AST/SGOT" /> <statusCode code="completed" /> < effectiveTime value="" /> <value unit="Units/L" xsi:type= "PQ" value="49" /> <interpretationCode codeSystem="local" code="*" /> <referenceRange> <observationRange> <text>10-37 </text> </observationRange> </referenceRange> </ observation> </component> <component> <observation moodCode= "EVN" classCode="OBS"> <templateId root="2.16.840.1.324800.10...4.2 " /> <id nullFlavor="NA" /> <code codeSystem="local" code="ALT " displayName="ALT/SGPT" /> <statusCode code="completed" /> < effectiveTime value="" /> <value unit="Units/L" xsi:type= "PQ" value="22" /> <referenceRange> <observationRange> <text>< 66</text> </observationRange> </ referenceRange> </observation> </component> <component> <observation moodCode="EVN" classCode="OBS"> <templateId root= "2.16.840.1.058383.10..22.4.2" /> <id nullFlavor="NA" /> < code codeSystem="local" code="CO2" displayName="CARBON DIOXIDE" /> < statusCode code="completed" /> <effectiveTime value="" /> <value unit="mmol/L" xsi:type="PQ" value="27" /> < referenceRange> <observationRange> <text>21-32</text> </observationRange> </referenceRange> </observation> </component> <component> <observation moodCode="EVN" classCode= "OBS"> <templateId root="05.27.840.1.902195.10.22.4.2" /> < id nullFlavor="NA" /> <code codeSystem="local" code="TP" displayName= "TOTAL PROTEIN" /> <statusCode code="completed" /> < effectiveTime value="" /> <value unit="gm/dL" xsi:type="PQ " value="7.4" /> <referenceRange> <observationRange> <text>6.4-8.2</text> </observationRange> </ referenceRange> </observation> </component> <component> <observation moodCode="EVN" classCode="OBS"> <templateId root= "05.27.840.1.329722.22.4.2" /> <id nullFlavor="NA" /> < code codeSystem="local" code="ALB" displayName="ALBUMIN" /> < statusCode code="completed" /> <effectiveTime value="" /> <value unit="gm/dL" xsi:type="PQ" value="3.2" /> < interpretationCode codeSystem="local" code="*" /> <referenceRange> <observationRange> <text>3.4-5.0</text> </ observationRange> </referenceRange> </observation> </ component> <component> <observation moodCode="EVN" classCode="OBS"> <templateId root="05.27.840.1.692164.1022.4.2" /> <id nullFlavor="NA" /> <code codeSystem="local" code="BILTOT" displayName= "BILI TOTAL" /> <statusCode code="completed" /> < effectiveTime value="" /> <value unit="mg/dL" xsi:type="PQ " value="0.4" /> <referenceRange> <observationRange> <text>0.0-1.0</text> </observationRange> </ referenceRange> </observation> </component> <component> <observation moodCode="EVN" classCode="OBS"> <templateId root= "05.27.840.1.239177.102022.4.2" /> <id nullFlavor="NA" /> < code codeSystem="local" code="ALKP" displayName="ALKALINE PHOSPHATASE TOTAL" /> <statusCode code="completed" /> <effectiveTime value= "850071027267" /> <value unit="IU/L" xsi:type="PQ" value="48" /> <referenceRange> <observationRange> <text>45-117</ text> </observationRange> </referenceRange> </ observation> </component> </organizer> </entry> <entry> <organizer moodCode="EVN" classCode="BATTERY"> <templateId root= "840.1.498605.22.4.1" /> <id nullFlavor="NA" /> <code codeSystem="local" code="CBC" displayName="CBC" /> <statusCode code= "completed" /> <component> <observation moodCode="EVN" classCode= "OBS"> <templateId root="840.1.918687.102022.4.2" /> < id nullFlavor="NA" /> <code codeSystem="local" code="MCH" displayName= "MEAN CELL HGB" /> <statusCode code="completed" /> < effectiveTime value="574087755028" /> <value unit="pg" xsi:type="PQ" value="26.5" /> <interpretationCode codeSystem="local" code="*" /> <referenceRange> <observationRange> <text>27.0- 33.0</text> </observationRange> </referenceRange> </ observation> </component> <component> <observation moodCode= "EVN" classCode="OBS"> <templateId root="216.840.1.935458.10.20.22.4.2 " /> <id nullFlavor="NA" /> <code codeSystem="local" code= "MCHC" displayName="MEAN CELL HGB CONCENTRATION" /> <statusCode code= "completed" /> <effectiveTime value="" /> <value unit="g/dL" xsi:type="PQ" value="31.5" /> <interpretationCode codeSystem="local" code="*" /> <referenceRange> < observationRange> <text>32.0-37.0</text> </ observationRange> </referenceRange> </observation> </ component> <component> <observation moodCode="EVN" classCode="OBS"> <templateId root="840.1.541838.10.22.4.2" /> <id nullFlavor="NA" /> <code codeSystem="local" code="MCV" displayName= "MEAN CELL VOLUME" /> <statusCode code="completed" /> < effectiveTime value="" /> <value unit="fl" xsi:type="PQ" value="84.1" /> <referenceRange> <observationRange> <text>80.0-100.0</text> </observationRange> </ referenceRange> </observation> </component> <component> <observation moodCode="EVN" classCode="OBS"> <templateId root= "05.27.840.1.327464.10.20.22.4.2" /> <id nullFlavor="NA" /> < code codeSystem="local" code="RBC" displayName="RED BLOOD CELL" /> < statusCode code="completed" /> <effectiveTime value="" /> <value unit="m/cumm" xsi:type="PQ" value="3.59" /> < interpretationCode codeSystem="local" code="*" /> <referenceRange> <observationRange> <text>4.00-6.00</text> </ observationRange> </referenceRange> </observation> </ component> <component> <observation moodCode="EVN" classCode="OBS"> <templateId root="2.16.840.1.247724.10.20.22.4.2" /> <id nullFlavor="NA" /> <code codeSystem="local" code="RDW" displayName=" RED CELL DISTRIBUTION WIDTH" /> <statusCode code="completed" /> <effectiveTime value="" /> <value unit="%" xsi:type= "PQ" value="15.4" /> <referenceRange> <observationRange> <text>11.0-15.6</text> </observationRange> </ referenceRange> </observation> </component> <component> <observation moodCode="EVN" classCode="OBS"> <templateId root= "2.16.840.1.757098.10.20.22.4.2" /> <id nullFlavor="NA" /> < code codeSystem="local" code="WBC" displayName="WHITE BLOOD CELL" /> < statusCode code="completed" /> <effectiveTime value="" /> <value unit="k/cumm" xsi:type="PQ" value="9.7" /> < referenceRange> <observationRange> <text>5.0-10.0</text > </observationRange> </referenceRange> </observation > </component> <component> <observation moodCode="EVN" classCode="OBS"> <templateId root="05.27.840.1.024858.10.20.22.4.2" /> <id nullFlavor="NA" /> <code codeSystem="local" code="HGBT" displayName="HEMOGLOBIN" /> <statusCode code="completed" /> < effectiveTime value="" /> <value unit="gm/dL" xsi:type="PQ " value="9.5" /> <interpretationCode codeSystem="local" code="*" /> <referenceRange> <observationRange> <text>12.0- 16.0</text> </observationRange> </referenceRange> </ observation> </component> <component> <observation moodCode= "EVN" classCode="OBS"> <templateId root="05.27.840.1.760780.10.22.4.2 " /> <id nullFlavor="NA" /> <code codeSystem="local" code= "HCTT" displayName="HEMATOCRIT" /> <statusCode code="completed" /> <effectiveTime value="" /> <value unit="%" xsi: type="PQ" value="30.2" /> <interpretationCode codeSystem="local" code= "*" /> <referenceRange> <observationRange> < text>37.0-47.0</text> </observationRange> </referenceRange> </observation> </component> <component> <observation moodCode="EVN" classCode="OBS"> <templateId root= "05.27.840.1.311540.10.20.22.4.2" /> <id nullFlavor="NA" /> < code codeSystem="local" code="PLT" displayName="PLATELET COUNT" /> < statusCode code="completed" /> <effectiveTime value="" /> <value unit="k/cumm" xsi:type="PQ" value="311" /> < referenceRange> <observationRange> <text>150-400</text> </observationRange> </referenceRange> </observation > </component> </organizer> </entry> <entry> <organizer moodCode= "EVN" classCode="BATTERY"> <templateId root="05.27.840.1.286113.10..22.4.1 " /> <id nullFlavor="NA" /> <code codeSystem="local" code="PREG" displayName=" TEST, SERUM" /> <statusCode code="completed" /> <component> <observation moodCode="EVN" classCode="OBS"> < templateId root="05.27.840.1.602589.10...4.2" /> <id nullFlavor="NA " /> <code codeSystem="local" code="PREG" displayName=" TEST, SERUM" /> <statusCode code="completed" /> <effectiveTime value ="785926303940" /> <value unit="" xsi:type="PQ" value="NEGATIVE" /> <referenceRange> <observationRange> <text> NEGATIVE</text> </observationRange> </referenceRange> </observation> </component> </organizer> </entry> <entry> < organizer moodCode="EVN" classCode="BATTERY"> <templateId root= "05.27.840.1.518118.10..22.4.1" /> <id nullFlavor="NA" /> <code codeSystem="local" code="GLUMON" displayName="GLUCOSE (POC)" /> < statusCode code="completed" /> <component> <observation moodCode= "EVN" classCode="OBS"> <templateId root="05.27.840.1.595185.10..22.4.2 " /> <id nullFlavor="NA" /> <code codeSystem="local" code= "GLUMON" displayName="GLUCOSE (POC)" /> <statusCode code="completed" / > <effectiveTime value="636949423532" /> <value unit="mg/dL" xsi:type="PQ" value="84" /> <referenceRange> < observationRange> <text>70-99</text> </observationRange > </referenceRange> </observation> </component> </ organizer> </entry> <entry> <organizer moodCode="EVN" classCode="BATTERY"> <templateId root="216.840.1.661195.10.20.22.4.1" /> <id nullFlavor= "NA" /> <code codeSystem="local" code="PTTH" displayName="PTT HEPARIN PROTOCOLS" /> <statusCode code="completed" /> <component> < observation moodCode="EVN" classCode="OBS"> <templateId root= "216.840.1.575066.10.20.22.4.2" /> <id nullFlavor="NA" /> < code codeSystem="local" code="PTT" displayName="PARTIAL THROMBOPLASTIN TIME" /> <statusCode code="completed" /> <effectiveTime value= "164120775987" /> <value unit="sec" xsi:type="PQ" value="105" /> <interpretationCode codeSystem="local" code="*" /> <referenceRange > <observationRange> <text>23-39</text> </ observationRange> </referenceRange> </observation> </ component> </organizer> </entry> <entry> <organizer moodCode="EVN" classCode="BATTERY"> <templateId root="216.840.1.761130.10.20.22.4.1" /> <id nullFlavor="NA" /> <code codeSystem="local" code="GLUMON" displayName="GLUCOSE (POC)" /> <statusCode code="completed" /> < component> <observation moodCode="EVN" classCode="OBS"> < templateId root="05.27.840.1.635208.10...4.2" /> <id nullFlavor="NA " /> <code codeSystem="local" code="GLUMON" displayName="GLUCOSE (POC) " /> <statusCode code="completed" /> <effectiveTime value= "481383764290" /> <value unit="mg/dL" xsi:type="PQ" value="65" /> <interpretationCode codeSystem="local" code="*" /> <referenceRange > <observationRange> <text>70-99</text> </ observationRange> </referenceRange> </observation> </ component> </organizer> </entry> <entry> <organizer moodCode="EVN" classCode="BATTERY"> <templateId root="05.27.840.1.114965.10...4.1" /> <id nullFlavor="NA" /> <code codeSystem="local" code="GLUMON" displayName="GLUCOSE (POC)" /> <statusCode code="completed" /> < component> <observation moodCode="EVN" classCode="OBS"> < templateId root="05.27.840.1.917351.10..22.4.2" /> <id nullFlavor="NA " /> <code codeSystem="local" code="GLUMON" displayName="GLUCOSE (POC) " /> <statusCode code="completed" /> <effectiveTime value= "169069982001" /> <value unit="mg/dL" xsi:type="PQ" value="96" /> <referenceRange> <observationRange> <text>70-99</ text> </observationRange> </referenceRange> </ observation> </component> </organizer> </entry> <entry> <organizer moodCode="EVN" classCode="BATTERY"> <templateId root= "840.1.483292.01.28.22.4.1" /> <id nullFlavor="NA" /> <code codeSystem="local" code="GLUMON" displayName="GLUCOSE (POC)" /> < statusCode code="completed" /> <component> <observation moodCode= "EVN" classCode="OBS"> <templateId root="840.1.801094.01.28.22.4.2 " /> <id nullFlavor="NA" /> <code codeSystem="local" code= "GLUMON" displayName="GLUCOSE (POC)" /> <statusCode code="completed" / > <effectiveTime value="152230288859" /> <value unit="mg/dL" xsi:type="PQ" value="100" /> <interpretationCode codeSystem="local" code="*" /> <referenceRange> <observationRange> <text>70-99</text> </observationRange> </referenceRange> </observation> </component> </organizer> </entry> <entry> < organizer moodCode="EVN" classCode="BATTERY"> <templateId root= "840.1.806536.01.28.22.4.1" /> <id nullFlavor="NA" /> <code codeSystem="local" code="GLUMON" displayName="GLUCOSE (POC)" /> < statusCode code="completed" /> <component> <observation moodCode= "EVN" classCode="OBS"> <templateId root="840.1.845895.01.28.22.4.2 " /> <id nullFlavor="NA" /> <code codeSystem="local" code= "GLUMON" displayName="GLUCOSE (POC)" /> <statusCode code="completed" / > <effectiveTime value="" /> <value unit="mg/dL" xsi:type="PQ" value="86" /> <referenceRange> < observationRange> <text>70-99</text> </observationRange > </referenceRange> </observation> </component> </ organizer> </entry> <entry> <organizer moodCode="EVN" classCode="BATTERY"> <templateId root="16.840.1.045240.10..22.4.1" /> <id nullFlavor= "NA" /> <code codeSystem="local" code="GLUMON" displayName="GLUCOSE (POC)" /> <statusCode code="completed" /> <component> <observation moodCode="EVN" classCode="OBS"> <templateId root= "05.27.840.1.788348.10..22.4.2" /> <id nullFlavor="NA" /> < code codeSystem="local" code="GLUMON" displayName="GLUCOSE (POC)" /> < statusCode code="completed" /> <effectiveTime value="425179914152" /> <value unit="mg/dL" xsi:type="PQ" value="105" /> < interpretationCode codeSystem="local" code="*" /> <referenceRange> <observationRange> <text>70-99</text> </ observationRange> </referenceRange> </observation> </ component> </organizer> </entry> <entry> <organizer moodCode="EVN" classCode="BATTERY"> <templateId root="05.27.840.1.947837.10..22.4.1" /> <id nullFlavor="NA" /> <code codeSystem="local" code="PTTH" displayName="PTT HEPARIN PROTOCOLS" /> <statusCode code="completed" /> <component> <observation moodCode="EVN" classCode="OBS"> < templateId root="2.16.840.1.912329.10..4.2" /> <id nullFlavor="NA " /> <code codeSystem="local" code="PTT" displayName="PARTIAL THROMBOPLASTIN TIME" /> <statusCode code="completed" /> < effectiveTime value="" /> <value unit="sec" xsi:type="PQ" value="74" /> <interpretationCode codeSystem="local" code="*" /> <referenceRange> <observationRange> <text>23-39</ text> </observationRange> </referenceRange> </ observation> </component> </organizer> </entry> <entry> <organizer moodCode="EVN" classCode="BATTERY"> <templateId root= "216.840.1.667778.10...4.1" /> <id nullFlavor="NA" /> <code codeSystem="local" code="GLUMON" displayName="GLUCOSE (POC)" /> < statusCode code="completed" /> <component> <observation moodCode= "EVN" classCode="OBS"> <templateId root="216.840.1.579728.10...4.2 " /> <id nullFlavor="NA" /> <code codeSystem="local" code= "GLUMON" displayName="GLUCOSE (POC)" /> <statusCode code="completed" / > <effectiveTime value="984483268465" /> <value unit="mg/dL" xsi:type="PQ" value="101" /> <interpretationCode codeSystem="local" code="*" /> <referenceRange> <observationRange> <text>70-99</text> </observationRange> </referenceRange> </observation> </component> </organizer> </entry> <entry> < organizer moodCode="EVN" classCode="BATTERY"> <templateId root= "05.27.840.1.152235.10.4.1" /> <id nullFlavor="NA" /> <code codeSystem="local" code="PTTH" displayName="PTT HEPARIN PROTOCOLS" /> < statusCode code="completed" /> <component> <observation moodCode= "EVN" classCode="OBS"> <templateId root="840.1.331534.01.28.22.4.2 " /> <id nullFlavor="NA" /> <code codeSystem="local" code="PTT " displayName="PARTIAL THROMBOPLASTIN TIME" /> <statusCode code= "completed" /> <effectiveTime value="647456176145" /> <value unit="sec" xsi:type="PQ" value="80" /> <interpretationCode codeSystem= "local" code="*" /> <referenceRange> <observationRange> <text>23-39</text> </observationRange> </ referenceRange> </observation> </component> </organizer> </entry > <entry> <organizer moodCode="EVN" classCode="BATTERY"> <templateId root="05.27.840.1.158135.01.28.22.4.1" /> <id nullFlavor="NA" /> <code codeSystem="local" code="GLUMON" displayName="GLUCOSE (POC)" /> < statusCode code="completed" /> <component> <observation moodCode= "EVN" classCode="OBS"> <templateId root="05.27.840.1.334287.10..4.2 " /> <id nullFlavor="NA" /> <code codeSystem="local" code= "GLUMON" displayName="GLUCOSE (POC)" /> <statusCode code="completed" / > <effectiveTime value="342073748613" /> <value unit="mg/dL" xsi:type="PQ" value="81" /> <referenceRange> < observationRange> <text>70-99</text> </observationRange > </referenceRange> </observation> </component> </ organizer> </entry> <entry> <organizer moodCode="EVN" classCode="BATTERY"> <templateId root="216.840.1.299607.10..22.4.1" /> <id nullFlavor= "NA" /> <code codeSystem="local" code="GLUMON" displayName="GLUCOSE (POC)" /> <statusCode code="completed" /> <component> <observation moodCode="EVN" classCode="OBS"> <templateId root= "216.840.1.162509.10..22.4.2" /> <id nullFlavor="NA" /> < code codeSystem="local" code="GLUMON" displayName="GLUCOSE (POC)" /> < statusCode code="completed" /> <effectiveTime value="124633819770" /> <value unit="mg/dL" xsi:type="PQ" value="92" /> < referenceRange> <observationRange> <text>70-99</text> </observationRange> </referenceRange> </observation> </component> </organizer> </entry> <entry> <organizer moodCode="EVN " classCode="BATTERY"> <templateId root="216.840.1.325131.10..22.4.1" / > <id nullFlavor="NA" /> <code codeSystem="local" code="GLUMON" displayName="GLUCOSE (POC)" /> <statusCode code="completed" /> < component> <observation moodCode="EVN" classCode="OBS"> < templateId root="2.16.840.1.631942.10..22.4.2" /> <id nullFlavor="NA " /> <code codeSystem="local" code="GLUMON" displayName="GLUCOSE (POC) " /> <statusCode code="completed" /> <effectiveTime value= "785038964466" /> <value unit="mg/dL" xsi:type="PQ" value="119" /> <interpretationCode codeSystem="local" code="*" /> < referenceRange> <observationRange> <text>70-99</text> </observationRange> </referenceRange> </observation> </component> </organizer> </entry> <entry> <organizer moodCode="EVN " classCode="BATTERY"> <templateId root="216.840.1.322629.10..22.4.1" / > <id nullFlavor="NA" /> <code codeSystem="local" code="GLUMON" displayName="GLUCOSE (POC)" /> <statusCode code="completed" /> < component> <observation moodCode="EVN" classCode="OBS"> < templateId root="2.16.840.1.073604.10..22.4.2" /> <id nullFlavor="NA " /> <code codeSystem="local" code="GLUMON" displayName="GLUCOSE (POC) " /> <statusCode code="completed" /> <effectiveTime value= "797678697920" /> <value unit="mg/dL" xsi:type="PQ" value="95" /> <referenceRange> <observationRange> <text>70-99</ text> </observationRange> </referenceRange> </ observation> </component> </organizer> </entry> <entry> <organizer moodCode="EVN" classCode="BATTERY"> <templateId root= "840.1.304811.10...4.1" /> <id nullFlavor="NA" /> <code codeSystem="local" code="CBC" displayName="CBC" /> <statusCode code= "completed" /> <component> <observation moodCode="EVN" classCode= "OBS"> <templateId root="840.1.804089.01.28.22.4.2" /> < id nullFlavor="NA" /> <code codeSystem="local" code="MCH" displayName= "MEAN CELL HGB" /> <statusCode code="completed" /> < effectiveTime value="668514069481" /> <value unit="pg" xsi:type="PQ" value="26.8" /> <interpretationCode codeSystem="local" code="*" /> <referenceRange> <observationRange> <text>27.0- 33.0</text> </observationRange> </referenceRange> </ observation> </component> <component> <observation moodCode= "EVN" classCode="OBS"> <templateId root="840.1.496522....4.2 " /> <id nullFlavor="NA" /> <code codeSystem="local" code= "MCHC" displayName="MEAN CELL HGB CONCENTRATION" /> <statusCode code= "completed" /> <effectiveTime value="973244624677" /> <value unit="g/dL" xsi:type="PQ" value="32.3" /> <referenceRange> < observationRange> <text>32.0-37.0</text> </ observationRange> </referenceRange> </observation> </ component> <component> <observation moodCode="EVN" classCode="OBS"> <templateId root="840.1.212154.10.20.22.4.2" /> <id nullFlavor="NA" /> <code codeSystem="local" code="MCV" displayName= "MEAN CELL VOLUME" /> <statusCode code="completed" /> < effectiveTime value="" /> <value unit="fl" xsi:type="PQ" value="83.0" /> <referenceRange> <observationRange> <text>80.0-100.0</text> </observationRange> </ referenceRange> </observation> </component> <component> <observation moodCode="EVN" classCode="OBS"> <templateId root= "840.1.105720.1022.4.2" /> <id nullFlavor="NA" /> < code codeSystem="local" code="RBC" displayName="RED BLOOD CELL" /> < statusCode code="completed" /> <effectiveTime value="" /> <value unit="m/cumm" xsi:type="PQ" value="2.76" /> < interpretationCode codeSystem="local" code="*" /> <referenceRange> <observationRange> <text>4.00-6.00</text> </ observationRange> </referenceRange> </observation> </ component> <component> <observation moodCode="EVN" classCode="OBS"> <templateId root="840.1.380189.10.20.22.4.2" /> <id nullFlavor="NA" /> <code codeSystem="local" code="RDW" displayName=" RED CELL DISTRIBUTION WIDTH" /> <statusCode code="completed" /> <effectiveTime value="" /> <value unit="%" xsi:type= "PQ" value="15.2" /> <referenceRange> <observationRange> <text>11.0-15.6</text> </observationRange> </ referenceRange> </observation> </component> <component> <observation moodCode="EVN" classCode="OBS"> <templateId root= "05.27.840.1.192919.10.20.22.4.2" /> <id nullFlavor="NA" /> < code codeSystem="local" code="WBC" displayName="WHITE BLOOD CELL" /> < statusCode code="completed" /> <effectiveTime value="142603359654" /> <value unit="k/cumm" xsi:type="PQ" value="9.6" /> < referenceRange> <observationRange> <text>5.0-10.0</text > </observationRange> </referenceRange> </observation > </component> <component> <observation moodCode="EVN" classCode="OBS"> <templateId root="05.27.840.1.884553.01.28.22.4.2" /> <id nullFlavor="NA" /> <code codeSystem="local" code="HGBT" displayName="HEMOGLOBIN" /> <statusCode code="completed" /> < effectiveTime value="196159963765" /> <value unit="gm/dL" xsi:type="PQ " value="7.4" /> <interpretationCode codeSystem="local" code="*" /> <referenceRange> <observationRange> <text>12.0- 16.0</text> </observationRange> </referenceRange> </ observation> </component> <component> <observation moodCode= "EVN" classCode="OBS"> <templateId root="05.27.840.1.259602..22.4.2 " /> <id nullFlavor="NA" /> <code codeSystem="local" code= "HCTT" displayName="HEMATOCRIT" /> <statusCode code="completed" /> <effectiveTime value="099069328881" /> <value unit="%" xsi: type="PQ" value="22.9" /> <interpretationCode codeSystem="local" code= "*" /> <referenceRange> <observationRange> < text>37.0-47.0</text> </observationRange> </referenceRange> </observation> </component> <component> <observation moodCode="EVN" classCode="OBS"> <templateId root= "216.840.1.102753.10.4.2" /> <id nullFlavor="NA" /> < code codeSystem="local" code="PLT" displayName="PLATELET COUNT" /> < statusCode code="completed" /> <effectiveTime value="941277475668" /> <value unit="k/cumm" xsi:type="PQ" value="257" /> < referenceRange> <observationRange> <text>150-400</text> </observationRange> </referenceRange> </observation > </component> </organizer> </entry> <entry> <organizer moodCode= "EVN" classCode="BATTERY"> <templateId root="216.840.1.428463...4.1 " /> <id nullFlavor="NA" /> <code codeSystem="local" code="PTTH" displayName="PTT HEPARIN PROTOCOLS" /> <statusCode code="completed" /> <component> <observation moodCode="EVN" classCode="OBS"> < templateId root="05.27.840.1.161388.10.4.2" /> <id nullFlavor="NA " /> <code codeSystem="local" code="PTT" displayName="PARTIAL THROMBOPLASTIN TIME" /> <statusCode code="completed" /> < effectiveTime value="997924559536" /> <value unit="sec" xsi:type="PQ" value="74" /> <interpretationCode codeSystem="local" code="*" /> <referenceRange> <observationRange> <text>23-39</ text> </observationRange> </referenceRange> </ observation> </component> </organizer> </entry> <entry> <organizer moodCode="EVN" classCode="BATTERY"> <templateId root= "216.840.1.447051.10..22.4.1" /> <id nullFlavor="NA" /> <code codeSystem="local" code="GLUMON" displayName="GLUCOSE (POC)" /> < statusCode code="completed" /> <component> <observation moodCode= "EVN" classCode="OBS"> <templateId root="216.840.1.652569.10..22.4.2 " /> <id nullFlavor="NA" /> <code codeSystem="local" code= "GLUMON" displayName="GLUCOSE (POC)" /> <statusCode code="completed" / > <effectiveTime value="632208525417" /> <value unit="mg/dL" xsi:type="PQ" value="120" /> <interpretationCode codeSystem="local" code="*" /> <referenceRange> <observationRange> <text>70-99</text> </observationRange> </referenceRange> </observation> </component> </organizer> </entry> <entry> < organizer moodCode="EVN" classCode="BATTERY"> <templateId root= "2.16.840.1.174318.10..22.4.1" /> <id nullFlavor="NA" /> <code codeSystem="local" code="PTTH" displayName="PTT HEPARIN PROTOCOLS" /> < statusCode code="completed" /> <component> <observation moodCode= "EVN" classCode="OBS"> <templateId root="2.16.840.1.525938.10..22.4.2 " /> <id nullFlavor="NA" /> <code codeSystem="local" code="PTT " displayName="PARTIAL THROMBOPLASTIN TIME" /> <statusCode code= "completed" /> <effectiveTime value="502687037670" /> <value unit="sec" xsi:type="PQ" value="135" /> <interpretationCode codeSystem= "local" code="" /> <referenceRange> <observationRange> <text>23-39</text> </observationRange> </ referenceRange> </observation> </component> </organizer> </entry > <entry> <organizer moodCode="EVN" classCode="BATTERY"> <templateId root="2.16.840.1.712615.10..22.4.1" /> <id nullFlavor="NA" /> <code codeSystem="local" code="GLUMON" displayName="GLUCOSE (POC)" /> < statusCode code="completed" /> <component> <observation moodCode= "EVN" classCode="OBS"> <templateId root="2.16.840.1.270033.10.20.22.4.2 " /> <id nullFlavor="NA" /> <code codeSystem="local" code= "GLUMON" displayName="GLUCOSE (POC)" /> <statusCode code="completed" / > <effectiveTime value="078797421664" /> <value unit="mg/dL" xsi:type="PQ" value="90" /> <referenceRange> < observationRange> <text>70-99</text> </observationRange > </referenceRange> </observation> </component> </ organizer> </entry> <entry> <organizer moodCode="EVN" classCode="BATTERY"> <templateId root="840.1.337656.10..4.1" /> <id nullFlavor= "NA" /> <code codeSystem="local" code="PTTH" displayName="PTT HEPARIN PROTOCOLS" /> <statusCode code="completed" /> <component> < observation moodCode="EVN" classCode="OBS"> <templateId root= "840.1.583301.01.28.224.2" /> <id nullFlavor="NA" /> < code codeSystem="local" code="PTT" displayName="PARTIAL THROMBOPLASTIN TIME" /> <statusCode code="completed" /> <effectiveTime value= "426906032061" /> <value unit="sec" xsi:type="PQ" value="45" /> <interpretationCode codeSystem="local" code="*" /> <referenceRange> <observationRange> <text>23-39</text> </ observationRange> </referenceRange> </observation> </ component> </organizer> </entry> <entry> <organizer moodCode="EVN" classCode="BATTERY"> <templateId root="840.1.575214.01.28.22.4.1" /> <id nullFlavor="NA" /> <code codeSystem="local" code="GLUMON" displayName="GLUCOSE (POC)" /> <statusCode code="completed" /> < component> <observation moodCode="EVN" classCode="OBS"> < templateId root="840.1.910392.01.28.22.4.2" /> <id nullFlavor="NA " /> <code codeSystem="local" code="GLUMON" displayName="GLUCOSE (POC) " /> <statusCode code="completed" /> <effectiveTime value= "099082562867" /> <value unit="mg/dL" xsi:type="PQ" value="100" /> <interpretationCode codeSystem="local" code="*" /> < referenceRange> <observationRange> <text>70-99</text> </observationRange> </referenceRange> </observation> </component> </organizer> </entry> <entry> <organizer moodCode="EVN " classCode="BATTERY"> <templateId root="216.840.1.440883.10..22.4.1" / > <id nullFlavor="NA" /> <code codeSystem="local" code="PTTH" displayName="PTT HEPARIN PROTOCOLS" /> <statusCode code="completed" /> <component> <observation moodCode="EVN" classCode="OBS"> < templateId root="216.840.1.402105.10..22.4.2" /> <id nullFlavor="NA " /> <code codeSystem="local" code="PTT" displayName="PARTIAL THROMBOPLASTIN TIME" /> <statusCode code="completed" /> < effectiveTime value="180397227596" /> <value unit="sec" xsi:type="PQ" value="95" /> <interpretationCode codeSystem="local" code="*" /> <referenceRange> <observationRange> <text>23-39</ text> </observationRange> </referenceRange> </ observation> </component> </organizer> </entry> <entry> <organizer moodCode="EVN" classCode="BATTERY"> <templateId root= "216.840.1.452830.10..22.4.1" /> <id nullFlavor="NA" /> <code codeSystem="local" code="GLUMON" displayName="GLUCOSE (POC)" /> < statusCode code="completed" /> <component> <observation moodCode= "EVN" classCode="OBS"> <templateId root="16.840.1.134344.10.20.22.4.2 " /> <id nullFlavor="NA" /> <code codeSystem="local" code= "GLUMON" displayName="GLUCOSE (POC)" /> <statusCode code="completed" / > <effectiveTime value="523291801586" /> <value unit="mg/dL" xsi:type="PQ" value="97" /> <referenceRange> < observationRange> <text>70-99</text> </observationRange > </referenceRange> </observation> </component> </ organizer> </entry> <entry> <organizer moodCode="EVN" classCode="BATTERY"> <templateId root="216.840.1.919732.10.20.22.4.1" /> <id nullFlavor= "NA" /> <code codeSystem="local" code="GLUMON" displayName="GLUCOSE (POC)" /> <statusCode code="completed" /> <component> <observation moodCode="EVN" classCode="OBS"> <templateId root= "16.840.1.414263.10.20.22.4.2" /> <id nullFlavor="NA" /> < code codeSystem="local" code="GLUMON" displayName="GLUCOSE (POC)" /> < statusCode code="completed" /> <effectiveTime value="265679306160" /> <value unit="mg/dL" xsi:type="PQ" value="79" /> < referenceRange> <observationRange> <text>70-99</text> </observationRange> </referenceRange> </observation> </component> </organizer> </entry> <entry> <organizer moodCode="EVN " classCode="BATTERY"> <templateId root="05.27.830.1.793196.10..22.4.1" / > <id nullFlavor="NA" /> <code codeSystem="local" code="GLUMON" displayName="GLUCOSE (POC)" /> <statusCode code="completed" /> < component> <observation moodCode="EVN" classCode="OBS"> < templateId root="840.1.876090.01.28.22.4.2" /> <id nullFlavor="NA " /> <code codeSystem="local" code="GLUMON" displayName="GLUCOSE (POC) " /> <statusCode code="completed" /> <effectiveTime value= "160989157780" /> <value unit="mg/dL" xsi:type="PQ" value="79" /> <referenceRange> <observationRange> <text>70-99</ text> </observationRange> </referenceRange> </ observation> </component> </organizer> </entry> <entry> <organizer moodCode="EVN" classCode="BATTERY"> <templateId root= "05.27.840.1.738132.01.28.22.4.1" /> <id nullFlavor="NA" /> <code codeSystem="local" code="GLUMON" displayName="GLUCOSE (POC)" /> < statusCode code="completed" /> <component> <observation moodCode= "EVN" classCode="OBS"> <templateId root="05.27.840.1.329328.10.22.4.2 " /> <id nullFlavor="NA" /> <code codeSystem="local" code= "GLUMON" displayName="GLUCOSE (POC)" /> <statusCode code="completed" / > <effectiveTime value="962161945557" /> <value unit="mg/dL" xsi:type="PQ" value="111" /> <interpretationCode codeSystem="local" code="*" /> <referenceRange> <observationRange> <text>70-99</text> </observationRange> </referenceRange> </observation> </component> </organizer> </entry> <entry> < organizer moodCode="EVN" classCode="BATTERY"> <templateId root= "16.840.1.381238.10...4.1" /> <id nullFlavor="NA" /> <code codeSystem="local" code="GLUMON" displayName="GLUCOSE (POC)" /> < statusCode code="completed" /> <component> <observation moodCode= "EVN" classCode="OBS"> <templateId root="16.840.1.248192.10...4.2 " /> <id nullFlavor="NA" /> <code codeSystem="local" code= "GLUMON" displayName="GLUCOSE (POC)" /> <statusCode code="completed" / > <effectiveTime value="238909220943" /> <value unit="mg/dL" xsi:type="PQ" value="128" /> <interpretationCode codeSystem="local" code="*" /> <referenceRange> <observationRange> <text>70-99</text> </observationRange> </referenceRange> </observation> </component> </organizer> </entry> <entry> < organizer moodCode="EVN" classCode="BATTERY"> <templateId root= "05.27.840.1.480142.10...4.1" /> <id nullFlavor="NA" /> <code codeSystem="local" code="PTTH" displayName="PTT HEPARIN PROTOCOLS" /> < statusCode code="completed" /> <component> <observation moodCode= "EVN" classCode="OBS"> <templateId root="05.27.840.1.119421.01.28.22.4.2 " /> <id nullFlavor="NA" /> <code codeSystem="local" code="PTT " displayName="PARTIAL THROMBOPLASTIN TIME" /> <statusCode code= "completed" /> <effectiveTime value="950961583909" /> <value unit="sec" xsi:type="PQ" value="78" /> <interpretationCode codeSystem= "local" code="*" /> <referenceRange> <observationRange> <text>23-39</text> </observationRange> </ referenceRange> </observation> </component> </organizer> </entry > <entry> <organizer moodCode="EVN" classCode="BATTERY"> <templateId root="216.840.1.080396.10..4.1" /> <id nullFlavor="NA" /> <code codeSystem="local" code="CBC" displayName="CBC" /> <statusCode code= "completed" /> <component> <observation moodCode="EVN" classCode= "OBS"> <templateId root="216.840.1.377959.01.28.22.4.2" /> < id nullFlavor="NA" /> <code codeSystem="local" code="MCH" displayName= "MEAN CELL HGB" /> <statusCode code="completed" /> < effectiveTime value="255604747050" /> <value unit="pg" xsi:type="PQ" value="26.0" /> <interpretationCode codeSystem="local" code="*" /> <referenceRange> <observationRange> <text>27.0- 33.0</text> </observationRange> </referenceRange> </ observation> </component> <component> <observation moodCode= "EVN" classCode="OBS"> <templateId root="216.840.1.150904.10.20.22.4.2 " /> <id nullFlavor="NA" /> <code codeSystem="local" code= "MCHC" displayName="MEAN CELL HGB CONCENTRATION" /> <statusCode code= "completed" /> <effectiveTime value="" /> <value unit="g/dL" xsi:type="PQ" value="31.3" /> <interpretationCode codeSystem="local" code="*" /> <referenceRange> < observationRange> <text>32.0-37.0</text> </ observationRange> </referenceRange> </observation> </ component> <component> <observation moodCode="EVN" classCode="OBS"> <templateId root="05.27.840.1.655190.1022.4.2" /> <id nullFlavor="NA" /> <code codeSystem="local" code="MCV" displayName= "MEAN CELL VOLUME" /> <statusCode code="completed" /> < effectiveTime value="" /> <value unit="fl" xsi:type="PQ" value="83.2" /> <referenceRange> <observationRange> <text>80.0-100.0</text> </observationRange> </ referenceRange> </observation> </component> <component> <observation moodCode="EVN" classCode="OBS"> <templateId root= "05.27.840.1.438268.10.20.22.4.2" /> <id nullFlavor="NA" /> < code codeSystem="local" code="RBC" displayName="RED BLOOD CELL" /> < statusCode code="completed" /> <effectiveTime value="" /> <value unit="m/cumm" xsi:type="PQ" value="2.50" /> < interpretationCode codeSystem="local" code="*" /> <referenceRange> <observationRange> <text>4.00-6.00</text> </ observationRange> </referenceRange> </observation> </ component> <component> <observation moodCode="EVN" classCode="OBS"> <templateId root="216.840.1.508430.10.20.22.4.2" /> <id nullFlavor="NA" /> <code codeSystem="local" code="RDW" displayName=" RED CELL DISTRIBUTION WIDTH" /> <statusCode code="completed" /> <effectiveTime value="780731540696" /> <value unit="%" xsi:type= "PQ" value="15.0" /> <referenceRange> <observationRange> <text>11.0-15.6</text> </observationRange> </ referenceRange> </observation> </component> <component> <observation moodCode="EVN" classCode="OBS"> <templateId root= "05.27.840.1.449785...4.2" /> <id nullFlavor="NA" /> < code codeSystem="local" code="WBC" displayName="WHITE BLOOD CELL" /> < statusCode code="completed" /> <effectiveTime value="103533390066" /> <value unit="k/cumm" xsi:type="PQ" value="7.3" /> < referenceRange> <observationRange> <text>5.0-10.0</text > </observationRange> </referenceRange> </observation > </component> <component> <observation moodCode="EVN" classCode="OBS"> <templateId root="05.27.840.1.325442.10.20.22.4.2" /> <id nullFlavor="NA" /> <code codeSystem="local" code="HGBT" displayName="HEMOGLOBIN" /> <statusCode code="completed" /> < effectiveTime value="148147585407" /> <value unit="gm/dL" xsi:type="PQ " value="6.5" /> <interpretationCode codeSystem="local" code="*" /> <referenceRange> <observationRange> <text>12.0- 16.0</text> </observationRange> </referenceRange> </ observation> </component> <component> <observation moodCode= "EVN" classCode="OBS"> <templateId root="2.16.840.1.184344.10.20.22.4.2 " /> <id nullFlavor="NA" /> <code codeSystem="local" code= "HCTT" displayName="HEMATOCRIT" /> <statusCode code="completed" /> <effectiveTime value="056363821849" /> <value unit="%" xsi: type="PQ" value="20.8" /> <interpretationCode codeSystem="local" code= "*" /> <referenceRange> <observationRange> < text>37.0-47.0</text> </observationRange> </referenceRange> </observation> </component> <component> <observation moodCode="EVN" classCode="OBS"> <templateId root= "2.16.840.1.298566.10.20.22.4.2" /> <id nullFlavor="NA" /> < code codeSystem="local" code="PLT" displayName="PLATELET COUNT" /> < statusCode code="completed" /> <effectiveTime value="972489428324" /> <value unit="k/cumm" xsi:type="PQ" value="287" /> < referenceRange> <observationRange> <text>150-400</text> </observationRange> </referenceRange> </observation > </component> </organizer> </entry> <entry> <organizer moodCode= "EVN" classCode="BATTERY"> <templateId root="840.1.314246.10.4.1 " /> <id nullFlavor="NA" /> <code codeSystem="local" code="PTTH" displayName="PTT HEPARIN PROTOCOLS" /> <statusCode code="completed" /> <component> <observation moodCode="EVN" classCode="OBS"> < templateId root="840.1.086138.01.28.22.4.2" /> <id nullFlavor="NA " /> <code codeSystem="local" code="PTT" displayName="PARTIAL THROMBOPLASTIN TIME" /> <statusCode code="completed" /> < effectiveTime value="784934923953" /> <value unit="sec" xsi:type="PQ" value="83" /> <interpretationCode codeSystem="local" code="*" /> <referenceRange> <observationRange> <text>23-39</ text> </observationRange> </referenceRange> </ observation> </component> </organizer> </entry> <entry> <organizer moodCode="EVN" classCode="BATTERY"> <templateId root= "840.1.971707.01.28.22.4.1" /> <id nullFlavor="NA" /> <code codeSystem="local" code="METAB" displayName="METABOLIC PANEL, BASIC" /> < statusCode code="completed" /> <component> <observation moodCode= "EVN" classCode="OBS"> <templateId root="840.1.627295.01.28.22.4.2 " /> <id nullFlavor="NA" /> <code codeSystem="local" code="K" displayName="POTASSIUM" /> <statusCode code="completed" /> < effectiveTime value="903031817197" /> <value unit="mmol/L" xsi:type="PQ " value="3.5" /> <referenceRange> <observationRange> <text>3.5-5.3</text> </observationRange> </ referenceRange> </observation> </component> <component> <observation moodCode="EVN" classCode="OBS"> <templateId root= "216.840.1.929169.10...4.2" /> <id nullFlavor="NA" /> < code codeSystem="local" code="eGFR" displayName="EST GFR (MDRD)" /> < statusCode code="completed" /> <effectiveTime value="501278979380" /> <value unit="mL/min" xsi:type="PQ" value="> 60" /> < referenceRange> <observationRange> <text>> 59</text> </observationRange> </referenceRange> </observation > </component> <component> <observation moodCode="EVN" classCode="OBS"> <templateId root="05.27.840.1.241495.01.28.22.4.2" /> <id nullFlavor="NA" /> <code codeSystem="local" code="GAP" displayName="ANION GAP" /> <statusCode code="completed" /> < effectiveTime value="529550808724" /> <value unit="mmol/L" xsi:type="PQ " value="8" /> <referenceRange> <observationRange> <text>5-15</text> </observationRange> </referenceRange > </observation> </component> <component> <observation moodCode="EVN" classCode="OBS"> <templateId root= "16.840.1.070294.10..22.4.2" /> <id nullFlavor="NA" /> < code codeSystem="local" code="eCrCl" displayName="EST CrCl (CG)" /> < statusCode code="completed" /> <effectiveTime value="732769340014" /> <value unit="mL/min" xsi:type="PQ" value="> 60" /> < referenceRange> <observationRange> <text>> 59</text> </observationRange> </referenceRange> </observation > </component> <component> <observation moodCode="EVN" classCode="OBS"> <templateId root="216.840.1.499334.10.20.22.4.2" /> <id nullFlavor="NA" /> <code codeSystem="local" code="GLU" displayName="GLUCOSE" /> <statusCode code="completed" /> < effectiveTime value="536581352348" /> <value unit="mg/dL" xsi:type="PQ " value="101" /> <interpretationCode codeSystem="local" code="*" /> <referenceRange> <observationRange> <text>70-99</ text> </observationRange> </referenceRange> </ observation> </component> <component> <observation moodCode= "EVN" classCode="OBS"> <templateId root="216.840.1.020292.10.20.22.4.2 " /> <id nullFlavor="NA" /> <code codeSystem="local" code="CA " displayName="CALCIUM" /> <statusCode code="completed" /> < effectiveTime value="807120619568" /> <value unit="mg/dL" xsi:type="PQ " value="7.8" /> <interpretationCode codeSystem="local" code="*" /> <referenceRange> <observationRange> <text>8.5- 10.1</text> </observationRange> </referenceRange> </ observation> </component> <component> <observation moodCode= "EVN" classCode="OBS"> <templateId root="16.840.1.008735.10..22.4.2 " /> <id nullFlavor="NA" /> <code codeSystem="local" code="BUN " displayName="BLOOD UREA NITROGEN" /> <statusCode code="completed" /> <effectiveTime value="824251285640" /> <value unit="mg/dL" xsi:type="PQ" value="4" /> <interpretationCode codeSystem="local" code= "*" /> <referenceRange> <observationRange> < text>7-20</text> </observationRange> </referenceRange> </observation> </component> <component> <observation moodCode="EVN" classCode="OBS"> <templateId root= "16.840.1.019136...4.2" /> <id nullFlavor="NA" /> < code codeSystem="local" code="CREAT" displayName="CREATININE" /> < statusCode code="completed" /> <effectiveTime value="" /> <value unit="mg/dL" xsi:type="PQ" value="0.4" /> < interpretationCode codeSystem="local" code="*" /> <referenceRange> <observationRange> <text>0.6-1.0</text> </ observationRange> </referenceRange> </observation> </ component> <component> <observation moodCode="EVN" classCode="OBS"> <templateId root="16.840.1.136676...22.4.2" /> <id nullFlavor="NA" /> <code codeSystem="local" code="NA" displayName= "SODIUM" /> <statusCode code="completed" /> <effectiveTime value="090582540447" /> <value unit="mmol/L" xsi:type="PQ" value="137" /> <referenceRange> <observationRange> <text> 135-148</text> </observationRange> </referenceRange> </observation> </component> <component> <observation moodCode= "EVN" classCode="OBS"> <templateId root="216.840.1.380365.10..22.4.2 " /> <id nullFlavor="NA" /> <code codeSystem="local" code="CL " displayName="CHLORIDE" /> <statusCode code="completed" /> < effectiveTime value="635949461619" /> <value unit="mmol/L" xsi:type="PQ " value="104" /> <referenceRange> <observationRange> <text>98-110</text> </observationRange> </ referenceRange> </observation> </component> <component> <observation moodCode="EVN" classCode="OBS"> <templateId root= "05.27.840.1.666237.10...4.2" /> <id nullFlavor="NA" /> < code codeSystem="local" code="CO2" displayName="CARBON DIOXIDE" /> < statusCode code="completed" /> <effectiveTime value="675005177527" /> <value unit="mmol/L" xsi:type="PQ" value="25" /> < referenceRange> <observationRange> <text>21-32</text> </observationRange> </referenceRange> </observation> </component> </organizer> </entry> <entry> <organizer moodCode="EVN " classCode="BATTERY"> <templateId root="16.840.1.275326.10..22.4.1" / > <id nullFlavor="NA" /> <code codeSystem="local" code="GLUMON" displayName="GLUCOSE (POC)" /> <statusCode code="completed" /> < component> <observation moodCode="EVN" classCode="OBS"> < templateId root="2.16.840.1.943850.10.20.22.4.2" /> <id nullFlavor="NA " /> <code codeSystem="local" code="GLUMON" displayName="GLUCOSE (POC) " /> <statusCode code="completed" /> <effectiveTime value= "726708390204" /> <value unit="mg/dL" xsi:type="PQ" value="92" /> <referenceRange> <observationRange> <text>70-99</ text> </observationRange> </referenceRange> </ observation> </component> </organizer> </entry> <entry> <organizer moodCode="EVN" classCode="BATTERY"> <templateId root= "2.16.840.1.696174.10..22.4.1" /> <id nullFlavor="NA" /> <code codeSystem="local" code="GLUMON" displayName="GLUCOSE (POC)" /> < statusCode code="completed" /> <component> <observation moodCode= "EVN" classCode="OBS"> <templateId root="2.16.840.1.470705.10.20.22.4.2 " /> <id nullFlavor="NA" /> <code codeSystem="local" code= "GLUMON" displayName="GLUCOSE (POC)" /> <statusCode code="completed" / > <effectiveTime value="677650973982" /> <value unit="mg/dL" xsi:type="PQ" value="120" /> <interpretationCode codeSystem="local" code="*" /> <referenceRange> <observationRange> <text>70-99</text> </observationRange> </referenceRange> </observation> </component> </organizer> </entry> <entry> < organizer moodCode="EVN" classCode="BATTERY"> <templateId root= "05.27.840.1.678969.01.28.22.4.1" /> <id nullFlavor="NA" /> <code codeSystem="local" code="VANCT" displayName="VANCOMYCIN TROUGH" /> < statusCode code="completed" /> <component> <observation moodCode= "EVN" classCode="OBS"> <templateId root="840.1.253403.01.28.22.4.2 " /> <id nullFlavor="NA" /> <code codeSystem="local" code= "VANCT" displayName="VANCOMYCIN TROUGH" /> <statusCode code="completed " /> <effectiveTime value="527635927268" /> <value unit="mcg/ mL" xsi:type="PQ" value="9.3" /> <referenceRange> < observationRange> <text>5.0-20.0</text> </ observationRange> </referenceRange> </observation> </ component> </organizer> </entry> <entry> <organizer moodCode="EVN" classCode="BATTERY"> <templateId root="840.1.930168.01.28.22.4.1" /> <id nullFlavor="NA" /> <code codeSystem="local" code="GLUMON" displayName="GLUCOSE (POC)" /> <statusCode code="completed" /> < component> <observation moodCode="EVN" classCode="OBS"> < templateId root="840.1.722056.01.28.22.4.2" /> <id nullFlavor="NA " /> <code codeSystem="local" code="GLUMON" displayName="GLUCOSE (POC) " /> <statusCode code="completed" /> <effectiveTime value= "970599346519" /> <value unit="mg/dL" xsi:type="PQ" value="93" /> <referenceRange> <observationRange> <text>70-99</ text> </observationRange> </referenceRange> </ observation> </component> </organizer> </entry> <entry> <organizer moodCode="EVN" classCode="BATTERY"> <templateId root= "16.840.1.634451.10..22.4.1" /> <id nullFlavor="NA" /> <code codeSystem="local" code="GLUMON" displayName="GLUCOSE (POC)" /> < statusCode code="completed" /> <component> <observation moodCode= "EVN" classCode="OBS"> <templateId root="216.840.1.661507.10..22.4.2 " /> <id nullFlavor="NA" /> <code codeSystem="local" code= "GLUMON" displayName="GLUCOSE (POC)" /> <statusCode code="completed" / > <effectiveTime value="643499758676" /> <value unit="mg/dL" xsi:type="PQ" value="120" /> <interpretationCode codeSystem="local" code="*" /> <referenceRange> <observationRange> <text>70-99</text> </observationRange> </referenceRange> </observation> </component> </organizer> </entry> <entry> < organizer moodCode="EVN" classCode="BATTERY"> <templateId root= "16.840.1.344194.10...4.1" /> <id nullFlavor="NA" /> <code codeSystem="local" code="CBC" displayName="CBC" /> <statusCode code= "completed" /> <component> <observation moodCode="EVN" classCode= "OBS"> <templateId root="16.840.1.168185.10.20.22.4.2" /> < id nullFlavor="NA" /> <code codeSystem="local" code="MCH" displayName= "MEAN CELL HGB" /> <statusCode code="completed" /> < effectiveTime value="614544991422" /> <value unit="pg" xsi:type="PQ" value="26.8" /> <interpretationCode codeSystem="local" code="*" /> <referenceRange> <observationRange> <text>27.0- 33.0</text> </observationRange> </referenceRange> </ observation> </component> <component> <observation moodCode= "EVN" classCode="OBS"> <templateId root="05.27.840.1.368689.10.22.4.2 " /> <id nullFlavor="NA" /> <code codeSystem="local" code= "MCHC" displayName="MEAN CELL HGB CONCENTRATION" /> <statusCode code= "completed" /> <effectiveTime value="486230955034" /> <value unit="g/dL" xsi:type="PQ" value="32.3" /> <referenceRange> < observationRange> <text>32.0-37.0</text> </ observationRange> </referenceRange> </observation> </ component> <component> <observation moodCode="EVN" classCode="OBS"> <templateId root="05.27.840.1.802762.10.20.22.4.2" /> <id nullFlavor="NA" /> <code codeSystem="local" code="MCV" displayName= "MEAN CELL VOLUME" /> <statusCode code="completed" /> < effectiveTime value="163989367400" /> <value unit="fl" xsi:type="PQ" value="83.1" /> <referenceRange> <observationRange> <text>80.0-100.0</text> </observationRange> </ referenceRange> </observation> </component> <component> <observation moodCode="EVN" classCode="OBS"> <templateId root= "216.840.1.203097.10.20.22.4.2" /> <id nullFlavor="NA" /> < code codeSystem="local" code="RBC" displayName="RED BLOOD CELL" /> < statusCode code="completed" /> <effectiveTime value="691922242487" /> <value unit="m/cumm" xsi:type="PQ" value="2.72" /> < interpretationCode codeSystem="local" code="*" /> <referenceRange> <observationRange> <text>4.00-6.00</text> </ observationRange> </referenceRange> </observation> </ component> <component> <observation moodCode="EVN" classCode="OBS"> <templateId root="05.27.840.1.497707.10..4.2" /> <id nullFlavor="NA" /> <code codeSystem="local" code="RDW" displayName=" RED CELL DISTRIBUTION WIDTH" /> <statusCode code="completed" /> <effectiveTime value="858532443630" /> <value unit="%" xsi:type= "PQ" value="15.1" /> <referenceRange> <observationRange> <text>11.0-15.6</text> </observationRange> </ referenceRange> </observation> </component> <component> <observation moodCode="EVN" classCode="OBS"> <templateId root= "16.840.1.969976.10.20.22.4.2" /> <id nullFlavor="NA" /> < code codeSystem="local" code="WBC" displayName="WHITE BLOOD CELL" /> < statusCode code="completed" /> <effectiveTime value="496757834682" /> <value unit="k/cumm" xsi:type="PQ" value="7.1" /> < referenceRange> <observationRange> <text>5.0-10.0</text > </observationRange> </referenceRange> </observation > </component> <component> <observation moodCode="EVN" classCode="OBS"> <templateId root="216.840.1.600474.10.20.22.4.2" /> <id nullFlavor="NA" /> <code codeSystem="local" code="HGBT" displayName="HEMOGLOBIN" /> <statusCode code="completed" /> < effectiveTime value="121160971487" /> <value unit="gm/dL" xsi:type="PQ " value="7.3" /> <interpretationCode codeSystem="local" code="*" /> <referenceRange> <observationRange> <text>12.0- 16.0</text> </observationRange> </referenceRange> </ observation> </component> <component> <observation moodCode= "EVN" classCode="OBS"> <templateId root="216.840.1.612590.10.20.22.4.2 " /> <id nullFlavor="NA" /> <code codeSystem="local" code= "HCTT" displayName="HEMATOCRIT" /> <statusCode code="completed" /> <effectiveTime value="127704841764" /> <value unit="%" xsi: type="PQ" value="22.6" /> <interpretationCode codeSystem="local" code= "*" /> <referenceRange> <observationRange> < text>37.0-47.0</text> </observationRange> </referenceRange> </observation> </component> <component> <observation moodCode="EVN" classCode="OBS"> <templateId root= "2.16.840.1.443387.10.20.22.4.2" /> <id nullFlavor="NA" /> < code codeSystem="local" code="PLT" displayName="PLATELET COUNT" /> < statusCode code="completed" /> <effectiveTime value="932757294534" /> <value unit="k/cumm" xsi:type="PQ" value="320" /> < referenceRange> <observationRange> <text>150-400</text> </observationRange> </referenceRange> </observation > </component> </organizer> </entry> <entry> <organizer moodCode= "EVN" classCode="BATTERY"> <templateId root="2.16.840.1.692895.10.20.22.4.1 " /> <id nullFlavor="NA" /> <code codeSystem="local" code="PTTH" displayName="PTT HEPARIN PROTOCOLS" /> <statusCode code="completed" /> <component> <observation moodCode="EVN" classCode="OBS"> < templateId root="2.16.840.1.686418.10.20.22.4.2" /> <id nullFlavor="NA " /> <code codeSystem="local" code="PTT" displayName="PARTIAL THROMBOPLASTIN TIME" /> <statusCode code="completed" /> < effectiveTime value="871664428592" /> <value unit="sec" xsi:type="PQ" value="102" /> <interpretationCode codeSystem="local" code="*" /> <referenceRange> <observationRange> <text>23-39</ text> </observationRange> </referenceRange> </ observation> </component> </organizer> </entry> <entry> <organizer moodCode="EVN" classCode="BATTERY"> <templateId root= "840.1.249592.10.4.1" /> <id nullFlavor="NA" /> <code codeSystem="local" code="GLUMON" displayName="GLUCOSE (POC)" /> < statusCode code="completed" /> <component> <observation moodCode= "EVN" classCode="OBS"> <templateId root="840.1.091718.01.28.22.4.2 " /> <id nullFlavor="NA" /> <code codeSystem="local" code= "GLUMON" displayName="GLUCOSE (POC)" /> <statusCode code="completed" / > <effectiveTime value="[id number]" /> <value unit="mg/dL" xsi:type="PQ" value="106" /> <interpretationCode codeSystem="local" code="*" /> <referenceRange> <observationRange> <text>70-99</text> </observationRange> </referenceRange> </observation> </component> </organizer> </entry> <entry> < organizer moodCode="EVN" classCode="BATTERY"> <templateId root= "[id number]" /> <id nullFlavor="NA" /> <code codeSystem="local" code="GLUMON" displayName="GLUCOSE (POC)" /> < statusCode code="completed" /> <component> <observation moodCode= "EVN" classCode="OBS"> <templateId root="840.1.998277.01.28.22.4.2 " /> <id nullFlavor="NA" /> <code codeSystem="local" code= "GLUMON" displayName="GLUCOSE (POC)" /> <statusCode code="completed" / > <effectiveTime value="751932356946" /> <value unit="mg/dL" xsi:type="PQ" value="103" /> <interpretationCode codeSystem="local" code="*" /> <referenceRange> <observationRange> <text>70-99</text> </observationRange> </referenceRange> </observation> </component> </organizer> </entry> <entry> < organizer moodCode="EVN" classCode="BATTERY"> <templateId root= "216.840.1.436613.10..22.4.1" /> <id nullFlavor="NA" /> <code codeSystem="local" code="PTTH" displayName="PTT HEPARIN PROTOCOLS" /> < statusCode code="completed" /> <component> <observation moodCode= "EVN" classCode="OBS"> <templateId root="216.840.1.306681.10..22.4.2 " /> <id nullFlavor="NA" /> <code codeSystem="local" code="PTT " displayName="PARTIAL THROMBOPLASTIN TIME" /> <statusCode code= "completed" /> <effectiveTime value="082709204140" /> <value unit="sec" xsi:type="PQ" value="61" /> <interpretationCode codeSystem= "local" code="*" /> <referenceRange> <observationRange> <text>23-39</text> </observationRange> </ referenceRange> </observation> </component> </organizer> </entry > <entry> <organizer moodCode="EVN" classCode="BATTERY"> <templateId root="2.16.840.1.509290.10..22.4.1" /> <id nullFlavor="NA" /> <code codeSystem="local" code="GLUMON" displayName="GLUCOSE (POC)" /> < statusCode code="completed" /> <component> <observation moodCode= "EVN" classCode="OBS"> <templateId root="2.16.840.1.479263.10.20.22.4.2 " /> <id nullFlavor="NA" /> <code codeSystem="local" code= "GLUMON" displayName="GLUCOSE (POC)" /> <statusCode code="completed" / > <effectiveTime value="032580977810" /> <value unit="mg/dL" xsi:type="PQ" value="81" /> <referenceRange> < observationRange> <text>70-99</text> </observationRange > </referenceRange> </observation> </component> </ organizer> </entry> <entry> <organizer moodCode="EVN" classCode="BATTERY"> <templateId root="2.16.840.1.546300.10.20.22.4.1" /> <id nullFlavor= "NA" /> <code codeSystem="local" code="PTTH" displayName="PTT HEPARIN PROTOCOLS" /> <statusCode code="completed" /> <component> < observation moodCode="EVN" classCode="OBS"> <templateId root= "2.16.840.1.675190.10.20.22.4.2" /> <id nullFlavor="NA" /> < code codeSystem="local" code="PTT" displayName="PARTIAL THROMBOPLASTIN TIME" /> <statusCode code="completed" /> <effectiveTime value= "120810020374" /> <value unit="sec" xsi:type="PQ" value="67" /> <interpretationCode codeSystem="local" code="*" /> <referenceRange> <observationRange> <text>23-39</text> </ observationRange> </referenceRange> </observation> </ component> </organizer> </entry> <entry> <organizer moodCode="EVN" classCode="BATTERY"> <templateId root="840.1.638317.01.28.22.4.1" /> <id nullFlavor="NA" /> <code codeSystem="local" code="GLUMON" displayName="GLUCOSE (POC)" /> <statusCode code="completed" /> < component> <observation moodCode="EVN" classCode="OBS"> < templateId root="840.1.542215.01.28.22.4.2" /> <id nullFlavor="NA " /> <code codeSystem="local" code="GLUMON" displayName="GLUCOSE (POC) " /> <statusCode code="completed" /> <effectiveTime value= "456968715705" /> <value unit="mg/dL" xsi:type="PQ" value="100" /> <interpretationCode codeSystem="local" code="*" /> < referenceRange> <observationRange> <text>70-99</text> </observationRange> </referenceRange> </observation> </component> </organizer> </entry> <entry> <organizer moodCode="EVN " classCode="BATTERY"> <templateId root="840.1.772572.01.28.22.4.1" / > <id nullFlavor="NA" /> <code codeSystem="local" code="PTTH" displayName="PTT HEPARIN PROTOCOLS" /> <statusCode code="completed" /> <component> <observation moodCode="EVN" classCode="OBS"> < templateId root="840.1.078205.01.28.22.4.2" /> <id nullFlavor="NA " /> <code codeSystem="local" code="PTT" displayName="PARTIAL THROMBOPLASTIN TIME" /> <statusCode code="completed" /> < effectiveTime value="295504833463" /> <value unit="sec" xsi:type="PQ" value="40" /> <interpretationCode codeSystem="local" code="*" /> <referenceRange> <observationRange> <text>23-39</ text> </observationRange> </referenceRange> </ observation> </component> </organizer> </entry> <entry> <organizer moodCode="EVN" classCode="BATTERY"> <templateId root= "216.840.1.896197.10..22.4.1" /> <id nullFlavor="NA" /> <code codeSystem="local" code="GLUMON" displayName="GLUCOSE (POC)" /> < statusCode code="completed" /> <component> <observation moodCode= "EVN" classCode="OBS"> <templateId root="2.16.840.1.965165.10..22.4.2 " /> <id nullFlavor="NA" /> <code codeSystem="local" code= "GLUMON" displayName="GLUCOSE (POC)" /> <statusCode code="completed" / > <effectiveTime value="234826147889" /> <value unit="mg/dL" xsi:type="PQ" value="115" /> <interpretationCode codeSystem="local" code="*" /> <referenceRange> <observationRange> <text>70-99</text> </observationRange> </referenceRange> </observation> </component> </organizer> </entry> <entry> < organizer moodCode="EVN" classCode="BATTERY"> <templateId root= "2.16.840.1.497159.10..22.4.1" /> <id nullFlavor="NA" /> <code codeSystem="local" code="PTTH" displayName="PTT HEPARIN PROTOCOLS" /> < statusCode code="completed" /> <component> <observation moodCode= "EVN" classCode="OBS"> <templateId root="2.16.840.1.718603.10..22.4.2 " /> <id nullFlavor="NA" /> <code codeSystem="local" code="PTT " displayName="PARTIAL THROMBOPLASTIN TIME" /> <statusCode code= "completed" /> <effectiveTime value="430658754054" /> <value unit="sec" xsi:type="PQ" value="46" /> <interpretationCode codeSystem= "local" code="*" /> <referenceRange> <observationRange> <text>23-39</text> </observationRange> </ referenceRange> </observation> </component> </organizer> </entry > <entry> <organizer moodCode="EVN" classCode="BATTERY"> <templateId root="2.16.840.1.358227.10..22.4.1" /> <id nullFlavor="NA" /> <code codeSystem="local" code="GLUMON" displayName="GLUCOSE (POC)" /> < statusCode code="completed" /> <component> <observation moodCode= "EVN" classCode="OBS"> <templateId root="2.16.840.1.568185.10.20.22.4.2 " /> <id nullFlavor="NA" /> <code codeSystem="local" code= "GLUMON" displayName="GLUCOSE (POC)" /> <statusCode code="completed" / > <effectiveTime value="204115817866" /> <value unit="mg/dL" xsi:type="PQ" value="99" /> <referenceRange> < observationRange> <text>70-99</text> </observationRange > </referenceRange> </observation> </component> </ organizer> </entry> <entry> <organizer moodCode="EVN" classCode="BATTERY"> <templateId root="840.1.162887.10..4.1" /> <id nullFlavor= "NA" /> <code codeSystem="local" code="GLUMON" displayName="GLUCOSE (POC)" /> <statusCode code="completed" /> <component> <observation moodCode="EVN" classCode="OBS"> <templateId root= "840.1.450319.01.28.22.4.2" /> <id nullFlavor="NA" /> < code codeSystem="local" code="GLUMON" displayName="GLUCOSE (POC)" /> < statusCode code="completed" /> <effectiveTime value="023921368346" /> <value unit="mg/dL" xsi:type="PQ" value="96" /> < referenceRange> <observationRange> <text>70-99</text> </observationRange> </referenceRange> </observation> </component> </organizer> </entry> <entry> <organizer moodCode="EVN " classCode="BATTERY"> <templateId root="840.1.117585.01.28.22.4.1" / > <id nullFlavor="NA" /> <code codeSystem="local" code="PTTH" displayName="PTT HEPARIN PROTOCOLS" /> <statusCode code="completed" /> <component> <observation moodCode="EVN" classCode="OBS"> < templateId root="840.1.712819.01.28.22.4.2" /> <id nullFlavor="NA " /> <code codeSystem="local" code="PTT" displayName="PARTIAL THROMBOPLASTIN TIME" /> <statusCode code="completed" /> < effectiveTime value="588859057420" /> <value unit="sec" xsi:type="PQ" value="42" /> <interpretationCode codeSystem="local" code="*" /> <referenceRange> <observationRange> <text>23-39</ text> </observationRange> </referenceRange> </ observation> </component> </organizer> </entry> <entry> <organizer moodCode="EVN" classCode="BATTERY"> <templateId root= "16.840.1.755923.10..22.4.1" /> <id nullFlavor="NA" /> <code codeSystem="local" code="CREATT" displayName="CREATININE" /> <statusCode code="completed" /> <component> <observation moodCode="EVN" classCode="OBS"> <templateId root="16.840.1.430295.10...4.2" /> <id nullFlavor="NA" /> <code codeSystem="local" code="eGFR" displayName="EST GFR (MDRD)" /> <statusCode code="completed" /> <effectiveTime value="" /> <value unit="mL/min" xsi:type ="PQ" value="> 60" /> <referenceRange> <observationRange > <text>> 59</text> </observationRange> </ referenceRange> </observation> </component> <component> <observation moodCode="EVN" classCode="OBS"> <templateId root= "05.27.840.1.635145.10..4.2" /> <id nullFlavor="NA" /> < code codeSystem="local" code="CREAT" displayName="CREATININE" /> < statusCode code="completed" /> <effectiveTime value="" /> <value unit="mg/dL" xsi:type="PQ" value="0.5" /> < interpretationCode codeSystem="local" code="*" /> <referenceRange> <observationRange> <text>0.6-1.0</text> </ observationRange> </referenceRange> </observation> </ component> </organizer> </entry> <entry> <organizer moodCode="EVN" classCode="BATTERY"> <templateId root="216.840.1.236709.10..22.4.1" /> <id nullFlavor="NA" /> <code codeSystem="local" code="GLUMON" displayName="GLUCOSE (POC)" /> <statusCode code="completed" /> < component> <observation moodCode="EVN" classCode="OBS"> < templateId root="05.27.840.1.449007.10...4.2" /> <id nullFlavor="NA " /> <code codeSystem="local" code="GLUMON" displayName="GLUCOSE (POC) " /> <statusCode code="completed" /> <effectiveTime value= "149520735814" /> <value unit="mg/dL" xsi:type="PQ" value="98" /> <referenceRange> <observationRange> <text>70-99</ text> </observationRange> </referenceRange> </ observation> </component> </organizer> </entry> <entry> <organizer moodCode="EVN" classCode="BATTERY"> <templateId root= "05.27.840.1.529945.10...4.1" /> <id nullFlavor="NA" /> <code codeSystem="local" code="PTTH" displayName="PTT HEPARIN PROTOCOLS" /> < statusCode code="completed" /> <component> <observation moodCode= "EVN" classCode="OBS"> <templateId root="05.27.840.1.363690.10..22.4.2 " /> <id nullFlavor="NA" /> <code codeSystem="local" code="PTT " displayName="PARTIAL THROMBOPLASTIN TIME" /> <statusCode code= "completed" /> <effectiveTime value="472003453047" /> <value unit="sec" xsi:type="PQ" value="142" /> <interpretationCode codeSystem= "local" code="" /> <referenceRange> <observationRange> <text>23-39</text> </observationRange> </ referenceRange> </observation> </component> </organizer> </entry > <entry> <organizer moodCode="EVN" classCode="BATTERY"> <templateId root="216.840.1.177998.10..22.4.1" /> <id nullFlavor="NA" /> <code codeSystem="local" code="GLUMON" displayName="GLUCOSE (POC)" /> < statusCode code="completed" /> <component> <observation moodCode= "EVN" classCode="OBS"> <templateId root="216.840.1.647904.10..22.4.2 " /> <id nullFlavor="NA" /> <code codeSystem="local" code= "GLUMON" displayName="GLUCOSE (POC)" /> <statusCode code="completed" / > <effectiveTime value="097564230456" /> <value unit="mg/dL" xsi:type="PQ" value="93" /> <referenceRange> < observationRange> <text>70-99</text> </observationRange > </referenceRange> </observation> </component> </ organizer> </entry> <entry> <organizer moodCode="EVN" classCode="BATTERY"> <templateId root="216.840.1.408948.10..22.4.1" /> <id nullFlavor= "NA" /> <code codeSystem="local" code="METAB" displayName="METABOLIC PANEL , BASIC" /> <statusCode code="completed" /> <component> < observation moodCode="EVN" classCode="OBS"> <templateId root= "16.840.1.353670.10..4.2" /> <id nullFlavor="NA" /> < code codeSystem="local" code="K" displayName="POTASSIUM" /> < statusCode code="completed" /> <effectiveTime value="324960773293" /> <value unit="mmol/L" xsi:type="PQ" value="3.9" /> < referenceRange> <observationRange> <text>3.5-5.3</text> </observationRange> </referenceRange> </observation > </component> <component> <observation moodCode="EVN" classCode="OBS"> <templateId root="840.1.509331.01.28.22.4.2" /> <id nullFlavor="NA" /> <code codeSystem="local" code="eGFR" displayName="EST GFR (MDRD)" /> <statusCode code="completed" /> <effectiveTime value="324328780432" /> <value unit="mL/min" xsi:type ="PQ" value="> 60" /> <referenceRange> <observationRange > <text>> 59</text> </observationRange> </ referenceRange> </observation> </component> <component> <observation moodCode="EVN" classCode="OBS"> <templateId root= "05.27.840.1.579616.01.28.22.4.2" /> <id nullFlavor="NA" /> < code codeSystem="local" code="GAP" displayName="ANION GAP" /> < statusCode code="completed" /> <effectiveTime value="966324834352" /> <value unit="mmol/L" xsi:type="PQ" value="6" /> < referenceRange> <observationRange> <text>5-15</text> </observationRange> </referenceRange> </observation> </component> <component> <observation moodCode="EVN" classCode= "OBS"> <templateId root="216.840.1.645496.10..22.4.2" /> < id nullFlavor="NA" /> <code codeSystem="local" code="eCrCl" displayName ="EST CrCl (CG)" /> <statusCode code="completed" /> < effectiveTime value="454338802797" /> <value unit="mL/min" xsi:type="PQ " value="> 60" /> <referenceRange> <observationRange> <text>> 59</text> </observationRange> </ referenceRange> </observation> </component> <component> <observation moodCode="EVN" classCode="OBS"> <templateId root= "05.27.840.1.984214.10...4.2" /> <id nullFlavor="NA" /> < code codeSystem="local" code="GLU" displayName="GLUCOSE" /> < statusCode code="completed" /> <effectiveTime value="362018964080" /> <value unit="mg/dL" xsi:type="PQ" value="90" /> < referenceRange> <observationRange> <text>70-99</text> </observationRange> </referenceRange> </observation> </component> <component> <observation moodCode="EVN" classCode= "OBS"> <templateId root="216.840.1.565754.10.20.22.4.2" /> < id nullFlavor="NA" /> <code codeSystem="local" code="CA" displayName= "CALCIUM" /> <statusCode code="completed" /> <effectiveTime value="270784717857" /> <value unit="mg/dL" xsi:type="PQ" value="8.3" / > <interpretationCode codeSystem="local" code="*" /> < referenceRange> <observationRange> <text>8.5-10.1</text > </observationRange> </referenceRange> </observation > </component> <component> <observation moodCode="EVN" classCode="OBS"> <templateId root="2.16.840.1.560287.10..22.4.2" /> <id nullFlavor="NA" /> <code codeSystem="local" code="BUN" displayName="BLOOD UREA NITROGEN" /> <statusCode code="completed" /> <effectiveTime value="119930692054" /> <value unit="mg/dL" xsi: type="PQ" value="3" /> <interpretationCode codeSystem="local" code="*" /> <referenceRange> <observationRange> <text>7- 20</text> </observationRange> </referenceRange> </ observation> </component> <component> <observation moodCode= "EVN" classCode="OBS"> <templateId root="2.16.840.1.777145.10.20.22.4.2 " /> <id nullFlavor="NA" /> <code codeSystem="local" code= "CREAT" displayName="CREATININE" /> <statusCode code="completed" /> <effectiveTime value="688442469032" /> <value unit="mg/dL" xsi: type="PQ" value="0.5" /> <interpretationCode codeSystem="local" code="* " /> <referenceRange> <observationRange> <text> 0.6-1.0</text> </observationRange> </referenceRange> </observation> </component> <component> <observation moodCode= "EVN" classCode="OBS"> <templateId root="216.840.1.458021.10.22.4.2 " /> <id nullFlavor="NA" /> <code codeSystem="local" code="NA " displayName="SODIUM" /> <statusCode code="completed" /> < effectiveTime value="492093906716" /> <value unit="mmol/L" xsi:type="PQ " value="137" /> <referenceRange> <observationRange> <text>135-148</text> </observationRange> </ referenceRange> </observation> </component> <component> <observation moodCode="EVN" classCode="OBS"> <templateId root= "05.27.840.1.806387.01.28.22.4.2" /> <id nullFlavor="NA" /> < code codeSystem="local" code="CL" displayName="CHLORIDE" /> < statusCode code="completed" /> <effectiveTime value="150508095417" /> <value unit="mmol/L" xsi:type="PQ" value="103" /> < referenceRange> <observationRange> <text>98-110</text> </observationRange> </referenceRange> </observation> </component> <component> <observation moodCode="EVN" classCode ="OBS"> <templateId root="16.840.1.137178.10..22.4.2" /> < id nullFlavor="NA" /> <code codeSystem="local" code="CO2" displayName= "CARBON DIOXIDE" /> <statusCode code="completed" /> < effectiveTime value="489069829839" /> <value unit="mmol/L" xsi:type="PQ " value="28" /> <referenceRange> <observationRange> <text>21-32</text> </observationRange> </ referenceRange> </observation> </component> </organizer> </entry > <entry> <organizer moodCode="EVN" classCode="BATTERY"> <templateId root="16.840.1.002722.10...4.1" /> <id nullFlavor="NA" /> <code codeSystem="local" code="CBC" displayName="CBC" /> <statusCode code= "completed" /> <component> <observation moodCode="EVN" classCode= "OBS"> <templateId root="16.840.1.409349.10..4.2" /> < id nullFlavor="NA" /> <code codeSystem="local" code="CBCCOM" displayName="COMMENT" /> <statusCode code="completed" /> < effectiveTime value="454784348273" /> <value unit="" xsi:type="PQ" value="REVIEWED" /> <referenceRange> <observationRange> <text /> </observationRange> </referenceRange> </observation> </component> <component> <observation moodCode="EVN" classCode="OBS"> <templateId root= "16.840.1.259581.01.28.22.4.2" /> <id nullFlavor="NA" /> < code codeSystem="local" code="MCH" displayName="MEAN CELL HGB" /> < statusCode code="completed" /> <effectiveTime value="220254426787" /> <value unit="pg" xsi:type="PQ" value="26.4" /> < interpretationCode codeSystem="local" code="*" /> <referenceRange> <observationRange> <text>27.0-33.0</text> </ observationRange> </referenceRange> </observation> </ component> <component> <observation moodCode="EVN" classCode="OBS"> <templateId root="216.840.1.077018.10.2022.4.2" /> <id nullFlavor="NA" /> <code codeSystem="local" code="MCHC" displayName= "MEAN CELL HGB CONCENTRATION" /> <statusCode code="completed" /> <effectiveTime value="051174124311" /> <value unit="g/dL" xsi:type= "PQ" value="31.4" /> <interpretationCode codeSystem="local" code="*" / > <referenceRange> <observationRange> <text> 32.0-37.0</text> </observationRange> </referenceRange> </observation> </component> <component> <observation moodCode="EVN" classCode="OBS"> <templateId root= "05.27.840.1.640345.01.28.22.4.2" /> <id nullFlavor="NA" /> < code codeSystem="local" code="MCV" displayName="MEAN CELL VOLUME" /> < statusCode code="completed" /> <effectiveTime value="749745637286" /> <value unit="fl" xsi:type="PQ" value="84.2" /> <referenceRange > <observationRange> <text>80.0-100.0</text> </observationRange> </referenceRange> </observation> </ component> <component> <observation moodCode="EVN" classCode="OBS"> <templateId root="216.840.1.843604.10.2022.4.2" /> <id nullFlavor="NA" /> <code codeSystem="local" code="RBC" displayName=" RED BLOOD CELL" /> <statusCode code="completed" /> < effectiveTime value="706614197564" /> <value unit="m/cumm" xsi:type="PQ " value="3.03" /> <interpretationCode codeSystem="local" code="*" /> <referenceRange> <observationRange> <text>4.00- 6.00</text> </observationRange> </referenceRange> </ observation> </component> <component> <observation moodCode= "EVN" classCode="OBS"> <templateId root="216.840.1.916517.10.20.22.4.2 " /> <id nullFlavor="NA" /> <code codeSystem="local" code="RDW " displayName="RED CELL DISTRIBUTION WIDTH" /> <statusCode code= "completed" /> <effectiveTime value="287726839871" /> <value unit="%" xsi:type="PQ" value="15.5" /> <referenceRange> <observationRange> <text>11.0-15.6</text> </ observationRange> </referenceRange> </observation> </ component> <component> <observation moodCode="EVN" classCode="OBS"> <templateId root="216.840.1.015851.10.20.22.4.2" /> <id nullFlavor="NA" /> <code codeSystem="local" code="WBC" displayName= "WHITE BLOOD CELL" /> <statusCode code="completed" /> < effectiveTime value="263511637677" /> <value unit="k/cumm" xsi:type="PQ " value="8.8" /> <referenceRange> <observationRange> <text>5.0-10.0</text> </observationRange> </ referenceRange> </observation> </component> <component> <observation moodCode="EVN" classCode="OBS"> <templateId root= "16.840.1.100822.10.20.22.4.2" /> <id nullFlavor="NA" /> < code codeSystem="local" code="HGBT" displayName="HEMOGLOBIN" /> < statusCode code="completed" /> <effectiveTime value="089092487922" /> <value unit="gm/dL" xsi:type="PQ" value="8.0" /> < interpretationCode codeSystem="local" code="*" /> <referenceRange> <observationRange> <text>12.0-16.0</text> </ observationRange> </referenceRange> </observation> </ component> <component> <observation moodCode="EVN" classCode="OBS"> <templateId root="05.27.840.1.583439.1022.4.2" /> <id nullFlavor="NA" /> <code codeSystem="local" code="HCTT" displayName= "HEMATOCRIT" /> <statusCode code="completed" /> < effectiveTime value="604984469996" /> <value unit="%" xsi:type="PQ " value="25.5" /> <interpretationCode codeSystem="local" code="*" /> <referenceRange> <observationRange> <text>37.0- 47.0</text> </observationRange> </referenceRange> </ observation> </component> <component> <observation moodCode= "EVN" classCode="OBS"> <templateId root="840.1.621740.10.20.22.4.2 " /> <id nullFlavor="NA" /> <code codeSystem="local" code="PLT " displayName="PLATELET COUNT" /> <statusCode code="completed" /> <effectiveTime value="267734544364" /> <value unit="k/cumm" xsi: type="PQ" value="158" /> <referenceRange> <observationRange > <text>150-400</text> </observationRange> </ referenceRange> </observation> </component> </organizer> </entry > <entry> <organizer moodCode="EVN" classCode="BATTERY"> <templateId root="840.1.538270.10...4.1" /> <id nullFlavor="NA" /> <code codeSystem="local" code="GLUMON" displayName="GLUCOSE (POC)" /> < statusCode code="completed" /> <component> <observation moodCode= "EVN" classCode="OBS"> <templateId root="840.1.084586...4.2 " /> <id nullFlavor="NA" /> <code codeSystem="local" code= "GLUMON" displayName="GLUCOSE (POC)" /> <statusCode code="completed" / > <effectiveTime value="520362231800" /> <value unit="mg/dL" xsi:type="PQ" value="101" /> <interpretationCode codeSystem="local" code="*" /> <referenceRange> <observationRange> <text>70-99</text> </observationRange> </referenceRange> </observation> </component> </organizer> </entry> <entry> < organizer moodCode="EVN" classCode="BATTERY"> <templateId root= "840.1.573751..22.4.1" /> <id nullFlavor="NA" /> <code codeSystem="local" code="PTTH" displayName="PTT HEPARIN PROTOCOLS" /> < statusCode code="completed" /> <component> <observation moodCode= "EVN" classCode="OBS"> <templateId root="840.1.689774.01.28.22.4.2 " /> <id nullFlavor="NA" /> <code codeSystem="local" code="PTT " displayName="PARTIAL THROMBOPLASTIN TIME" /> <statusCode code= "completed" /> <effectiveTime value="995618631784" /> <value unit="sec" xsi:type="PQ" value="92" /> <interpretationCode codeSystem= "local" code="*" /> <referenceRange> <observationRange> <text>23-39</text> </observationRange> </ referenceRange> </observation> </component> </organizer> </entry > <entry> <organizer moodCode="EVN" classCode="BATTERY"> <templateId root="216.840.1.450287.01.28.22.4.1" /> <id nullFlavor="NA" /> <code codeSystem="local" code="GLUMON" displayName="GLUCOSE (POC)" /> < statusCode code="completed" /> <component> <observation moodCode= "EVN" classCode="OBS"> <templateId root="2.16.840.1.583920.10.4.2 " /> <id nullFlavor="NA" /> <code codeSystem="local" code= "GLUMON" displayName="GLUCOSE (POC)" /> <statusCode code="completed" / > <effectiveTime value="150710668876" /> <value unit="mg/dL" xsi:type="PQ" value="102" /> <interpretationCode codeSystem="local" code="*" /> <referenceRange> <observationRange> <text>70-99</text> </observationRange> </referenceRange> </observation> </component> </organizer> </entry> <entry> < organizer moodCode="EVN" classCode="BATTERY"> <templateId root= "2.16.840.1.606455...4.1" /> <id nullFlavor="NA" /> <code codeSystem="local" code="PTTH" displayName="PTT HEPARIN PROTOCOLS" /> < statusCode code="completed" /> <component> <observation moodCode= "EVN" classCode="OBS"> <templateId root="05.27.840.1.877129.01.28.22.4.2 " /> <id nullFlavor="NA" /> <code codeSystem="local" code="PTT " displayName="PARTIAL THROMBOPLASTIN TIME" /> <statusCode code= "completed" /> <effectiveTime value="[id number]" /> <value unit="sec" xsi:type="PQ" value="98" /> <interpretationCode codeSystem= "local" code="*" /> <referenceRange> <observationRange> <text>23-39</text> </observationRange> </ referenceRange> </observation> </component> </organizer> </entry > <entry> <organizer moodCode="EVN" classCode="BATTERY"> <templateId root="840.1.508491.01.28.22.4.1" /> <id nullFlavor="NA" /> <code codeSystem="local" code="GLUMON" displayName="GLUCOSE (POC)" /> < statusCode code="completed" /> <component> <observation moodCode= "EVN" classCode="OBS"> <templateId root="05.27.840.1.806823.01.28.22.4.2 " /> <id nullFlavor="NA" /> <code codeSystem="local" code= "GLUMON" displayName="GLUCOSE (POC)" /> <statusCode code="completed" / > <effectiveTime value="436646559406" /> <value unit="mg/dL" xsi:type="PQ" value="97" /> <referenceRange> < observationRange> <text>70-99</text> </observationRange > </referenceRange> </observation> </component> </ organizer> </entry> <entry> <organizer moodCode="EVN" classCode="BATTERY"> <templateId root="05.27.840.1.008567.10..22.4.1" /> <id nullFlavor= "NA" /> <code codeSystem="local" code="GLUMON" displayName="GLUCOSE (POC)" /> <statusCode code="completed" /> <component> <observation moodCode="EVN" classCode="OBS"> <templateId root= "840.1.697829.10..4.2" /> <id nullFlavor="NA" /> < code codeSystem="local" code="GLUMON" displayName="GLUCOSE (POC)" /> < statusCode code="completed" /> <effectiveTime value="[id number]" /> <value unit="mg/dL" xsi:type="PQ" value="88" /> < referenceRange> <observationRange> <text>70-99</text> </observationRange> </referenceRange> </observation> </component> </organizer> </entry> <entry> <organizer moodCode="EVN " classCode="BATTERY"> <templateId root="840.1.912250.10..22.4.1" / > <id nullFlavor="NA" /> <code codeSystem="local" code="GLUMON" displayName="GLUCOSE (POC)" /> <statusCode code="completed" /> < component> <observation moodCode="EVN" classCode="OBS"> < templateId root="05.27.840.1.498428.10..22.4.2" /> <id nullFlavor="NA " /> <code codeSystem="local" code="GLUMON" displayName="GLUCOSE (POC) " /> <statusCode code="completed" /> <effectiveTime value= "" /> <value unit="mg/dL" xsi:type="PQ" value="97" /> <referenceRange> <observationRange> <text>70-99</ text> </observationRange> </referenceRange> </ observation> </component> </organizer> </entry> <entry> <organizer moodCode="EVN" classCode="BATTERY"> <templateId root= "216.840.1.510959.10.20.22.4.1" /> <id nullFlavor="NA" /> <code codeSystem="local" code="PTT" displayName="PARTIAL THROMBOPLASTIN TIME" /> <statusCode code="completed" /> <component> <observation moodCode= "EVN" classCode="OBS"> <templateId root="216.840.1.443330.10.20.22.4.2 " /> <id nullFlavor="NA" /> <code codeSystem="local" code="PTT " displayName="PARTIAL THROMBOPLASTIN TIME" /> <statusCode code= "completed" /> <effectiveTime value="[id number]" /> <value unit="sec" xsi:type="PQ" value="40" /> <interpretationCode codeSystem= "local" code="*" /> <referenceRange> <observationRange> <text>23-39</text> </observationRange> </ referenceRange> </observation> </component> </organizer> </entry > <entry> <organizer moodCode="EVN" classCode="BATTERY"> <templateId root="216.840.1.860626.10.20.22.4.1" /> <id nullFlavor="NA" /> <code codeSystem="local" code="PT" displayName="PROTHROMBIN TIME WITH INR" /> < statusCode code="completed" /> <component> <observation moodCode= "EVN" classCode="OBS"> <templateId root="05.27.840.1.821119.10.22.4.2 " /> <id nullFlavor="NA" /> <code codeSystem="local" code= "INRX" displayName="INTERNATIONAL NORMAL RATIO" /> <statusCode code= "completed" /> <effectiveTime value="" /> <value unit="" xsi:type="PQ" value="1.2" /> <interpretationCode codeSystem= "local" code="*" /> <referenceRange> <observationRange> <text>0.9-1.1</text> </observationRange> </ referenceRange> </observation> </component> <component> <observation moodCode="EVN" classCode="OBS"> <templateId root= "05.27.840.1.443166.10.4.2" /> <id nullFlavor="NA" /> < code codeSystem="local" code="PTPAT" displayName="PROTHROMBIN TIME" /> <statusCode code="completed" /> <effectiveTime value="" /> <value unit="sec" xsi:type="PQ" value="13.3" /> < interpretationCode codeSystem="local" code="*" /> <referenceRange> <observationRange> <text>9.3-12.2</text> </ observationRange> </referenceRange> </observation> </ component> </organizer> </entry> <entry> <organizer moodCode="EVN" classCode="BATTERY"> <templateId root="05.27.840.1.825932.10.20.22.4.1" /> <id nullFlavor="NA" /> <code codeSystem="local" code="CBC" displayName ="CBC" /> <statusCode code="completed" /> <component> < observation moodCode="EVN" classCode="OBS"> <templateId root= "05.27.840.1.357444.10..4.2" /> <id nullFlavor="NA" /> < code codeSystem="local" code="MCH" displayName="MEAN CELL HGB" /> < statusCode code="completed" /> <effectiveTime value="" /> <value unit="pg" xsi:type="PQ" value="26.5" /> < interpretationCode codeSystem="local" code="*" /> <referenceRange> <observationRange> <text>27.0-33.0</text> </ observationRange> </referenceRange> </observation> </ component> <component> <observation moodCode="EVN" classCode="OBS"> <templateId root="840.1.194889.10.4.2" /> <id nullFlavor="NA" /> <code codeSystem="local" code="MCHC" displayName= "MEAN CELL HGB CONCENTRATION" /> <statusCode code="completed" /> <effectiveTime value="" /> <value unit="g/dL" xsi:type= "PQ" value="31.7" /> <interpretationCode codeSystem="local" code="*" / > <referenceRange> <observationRange> <text> 32.0-37.0</text> </observationRange> </referenceRange> </observation> </component> <component> <observation moodCode="EVN" classCode="OBS"> <templateId root= "05.27.840.1.864969.10.22.4.2" /> <id nullFlavor="NA" /> < code codeSystem="local" code="MCV" displayName="MEAN CELL VOLUME" /> < statusCode code="completed" /> <effectiveTime value="" /> <value unit="fl" xsi:type="PQ" value="83.5" /> <referenceRange > <observationRange> <text>80.0-100.0</text> </observationRange> </referenceRange> </observation> </ component> <component> <observation moodCode="EVN" classCode="OBS"> <templateId root="216.840.1.494467.10.20.22.4.2" /> <id nullFlavor="NA" /> <code codeSystem="local" code="RBC" displayName=" RED BLOOD CELL" /> <statusCode code="completed" /> < effectiveTime value="" /> <value unit="m/cumm" xsi:type="PQ " value="3.10" /> <interpretationCode codeSystem="local" code="*" /> <referenceRange> <observationRange> <text>4.00- 6.00</text> </observationRange> </referenceRange> </ observation> </component> <component> <observation moodCode= "EVN" classCode="OBS"> <templateId root="216.840.1.927858.10.20.22.4.2 " /> <id nullFlavor="NA" /> <code codeSystem="local" code="RDW " displayName="RED CELL DISTRIBUTION WIDTH" /> <statusCode code= "completed" /> <effectiveTime value="" /> <value unit="%" xsi:type="PQ" value="15.5" /> <referenceRange> <observationRange> <text>11.0-15.6</text> </ observationRange> </referenceRange> </observation> </ component> <component> <observation moodCode="EVN" classCode="OBS"> <templateId root="05.27.840.1.173697.10.20.22.4.2" /> <id nullFlavor="NA" /> <code codeSystem="local" code="WBC" displayName= "WHITE BLOOD CELL" /> <statusCode code="completed" /> < effectiveTime value="" /> <value unit="k/cumm" xsi:type="PQ " value="11.3" /> <interpretationCode codeSystem="local" code="*" /> <referenceRange> <observationRange> <text>5.0- 10.0</text> </observationRange> </referenceRange> </ observation> </component> <component> <observation moodCode= "EVN" classCode="OBS"> <templateId root="05.27.840.1.886294.22.4.2 " /> <id nullFlavor="NA" /> <code codeSystem="local" code= "HGBT" displayName="HEMOGLOBIN" /> <statusCode code="completed" /> <effectiveTime value="" /> <value unit="gm/dL" xsi: type="PQ" value="8.2" /> <interpretationCode codeSystem="local" code="* " /> <referenceRange> <observationRange> <text> 12.0-16.0</text> </observationRange> </referenceRange> </observation> </component> <component> <observation moodCode="EVN" classCode="OBS"> <templateId root= "05.27.840.1.418523.10.20.22.4.2" /> <id nullFlavor="NA" /> < code codeSystem="local" code="HCTT" displayName="HEMATOCRIT" /> < statusCode code="completed" /> <effectiveTime value="" /> <value unit="%" xsi:type="PQ" value="25.9" /> < interpretationCode codeSystem="local" code="*" /> <referenceRange> <observationRange> <text>37.0-47.0</text> </ observationRange> </referenceRange> </observation> </ component> <component> <observation moodCode="EVN" classCode="OBS"> <templateId root="05.27.840.1.739651.10.22.4.2" /> <id nullFlavor="NA" /> <code codeSystem="local" code="PLT" displayName= "PLATELET COUNT" /> <statusCode code="completed" /> < effectiveTime value="" /> <value unit="k/cumm" xsi:type="PQ " value="187" /> <referenceRange> <observationRange> <text>150-400</text> </observationRange> </ referenceRange> </observation> </component> </organizer> </entry > <entry> <organizer moodCode="EVN" classCode="BATTERY"> <templateId root="05.27.840.1.379076.01.28.22.4.1" /> <id nullFlavor="NA" /> <code codeSystem="local" code="GLUMON" displayName="GLUCOSE (POC)" /> < statusCode code="completed" /> <component> <observation moodCode= "EVN" classCode="OBS"> <templateId root="05.27.840.1.163130.10.22.4.2 " /> <id nullFlavor="NA" /> <code codeSystem="local" code= "GLUMON" displayName="GLUCOSE (POC)" /> <statusCode code="completed" / > <effectiveTime value="" /> <value unit="mg/dL" xsi:type="PQ" value="106" /> <interpretationCode codeSystem="local" code="*" /> <referenceRange> <observationRange> <text>70-99</text> </observationRange> </referenceRange> </observation> </component> </organizer> </entry> <entry> < organizer moodCode="EVN" classCode="BATTERY"> <templateId root= "05.27.840.1.953244.10...4.1" /> <id nullFlavor="NA" /> <code codeSystem="local" code="PTTH" displayName="PTT HEPARIN PROTOCOLS" /> < statusCode code="completed" /> <component> <observation moodCode= "EVN" classCode="OBS"> <templateId root="05.27.840.1.638214.10...4.2 " /> <id nullFlavor="NA" /> <code codeSystem="local" code="PTT " displayName="PARTIAL THROMBOPLASTIN TIME" /> <statusCode code= "completed" /> <effectiveTime value="462992551264" /> <value unit="sec" xsi:type="PQ" value="105" /> <interpretationCode codeSystem= "local" code="*" /> <referenceRange> <observationRange> <text>23-39</text> </observationRange> </ referenceRange> </observation> </component> </organizer> </entry > <entry> <organizer moodCode="EVN" classCode="BATTERY"> <templateId root="05.27.840.1.441351.10...4.1" /> <id nullFlavor="NA" /> <code codeSystem="local" code="METAB" displayName="METABOLIC PANEL, BASIC" /> < statusCode code="completed" /> <component> <observation moodCode= "EVN" classCode="OBS"> <templateId root="840.1.898914.22.4.2 " /> <id nullFlavor="NA" /> <code codeSystem="local" code="K" displayName="POTASSIUM" /> <statusCode code="completed" /> < effectiveTime value="" /> <value unit="mmol/L" xsi:type="PQ " value="3.7" /> <referenceRange> <observationRange> <text>3.5-5.3</text> </observationRange> </ referenceRange> </observation> </component> <component> <observation moodCode="EVN" classCode="OBS"> <templateId root= "216.840.1.657571.01.28.22.4.2" /> <id nullFlavor="NA" /> < code codeSystem="local" code="eGFR" displayName="EST GFR (MDRD)" /> < statusCode code="completed" /> <effectiveTime value="" /> <value unit="mL/min" xsi:type="PQ" value="> 60" /> < referenceRange> <observationRange> <text>> 59</text> </observationRange> </referenceRange> </observation > </component> <component> <observation moodCode="EVN" classCode="OBS"> <templateId root="16.840.1.480584.01.28.22.4.2" /> <id nullFlavor="NA" /> <code codeSystem="local" code="GAP" displayName="ANION GAP" /> <statusCode code="completed" /> < effectiveTime value="" /> <value unit="mmol/L" xsi:type="PQ " value="10" /> <referenceRange> <observationRange> <text>5-15</text> </observationRange> </referenceRange > </observation> </component> <component> <observation moodCode="EVN" classCode="OBS"> <templateId root= "16.840.1.409128.10.22.4.2" /> <id nullFlavor="NA" /> < code codeSystem="local" code="eCrCl" displayName="EST CrCl (CG)" /> < statusCode code="completed" /> <effectiveTime value="" /> <value unit="mL/min" xsi:type="PQ" value="> 60" /> < referenceRange> <observationRange> <text>> 59</text> </observationRange> </referenceRange> </observation > </component> <component> <observation moodCode="EVN" classCode="OBS"> <templateId root="05.27.840.1.085168.01.28.22.4.2" /> <id nullFlavor="NA" /> <code codeSystem="local" code="GLU" displayName="GLUCOSE" /> <statusCode code="completed" /> < effectiveTime value="" /> <value unit="mg/dL" xsi:type="PQ " value="103" /> <interpretationCode codeSystem="local" code="*" /> <referenceRange> <observationRange> <text>70-99</ text> </observationRange> </referenceRange> </ observation> </component> <component> <observation moodCode= "EVN" classCode="OBS"> <templateId root="05.27.840.1.198426.10.22.4.2 " /> <id nullFlavor="NA" /> <code codeSystem="local" code="CA " displayName="CALCIUM" /> <statusCode code="completed" /> < effectiveTime value="" /> <value unit="mg/dL" xsi:type="PQ " value="8.4" /> <interpretationCode codeSystem="local" code="*" /> <referenceRange> <observationRange> <text>8.5- 10.1</text> </observationRange> </referenceRange> </ observation> </component> <component> <observation moodCode= "EVN" classCode="OBS"> <templateId root="216.840.1.107052.01.28.22.4.2 " /> <id nullFlavor="NA" /> <code codeSystem="local" code="BUN " displayName="BLOOD UREA NITROGEN" /> <statusCode code="completed" /> <effectiveTime value="" /> <value unit="mg/dL" xsi:type="PQ" value="4" /> <interpretationCode codeSystem="local" code= "*" /> <referenceRange> <observationRange> < text>7-20</text> </observationRange> </referenceRange> </observation> </component> <component> <observation moodCode="EVN" classCode="OBS"> <templateId root= "216.840.1.609339.01.28.22.4.2" /> <id nullFlavor="NA" /> < code codeSystem="local" code="CREAT" displayName="CREATININE" /> < statusCode code="completed" /> <effectiveTime value="" /> <value unit="mg/dL" xsi:type="PQ" value="0.4" /> < interpretationCode codeSystem="local" code="*" /> <referenceRange> <observationRange> <text>0.6-1.0</text> </ observationRange> </referenceRange> </observation> </ component> <component> <observation moodCode="EVN" classCode="OBS"> <templateId root="216.840.1.689210...22.4.2" /> <id nullFlavor="NA" /> <code codeSystem="local" code="NA" displayName= "SODIUM" /> <statusCode code="completed" /> <effectiveTime value="" /> <value unit="mmol/L" xsi:type="PQ" value="137" /> <referenceRange> <observationRange> <text> 135-148</text> </observationRange> </referenceRange> </observation> </component> <component> <observation moodCode= "EVN" classCode="OBS"> <templateId root="2.16.840.1.113622.10..22.4.2 " /> <id nullFlavor="NA" /> <code codeSystem="local" code="CL " displayName="CHLORIDE" /> <statusCode code="completed" /> < effectiveTime value="" /> <value unit="mmol/L" xsi:type="PQ " value="102" /> <referenceRange> <observationRange> <text>98-110</text> </observationRange> </ referenceRange> </observation> </component> <component> <observation moodCode="EVN" classCode="OBS"> <templateId root= "2.16.840.1.427859.10..22.4.2" /> <id nullFlavor="NA" /> < code codeSystem="local" code="CO2" displayName="CARBON DIOXIDE" /> < statusCode code="completed" /> <effectiveTime value="" /> <value unit="mmol/L" xsi:type="PQ" value="25" /> < referenceRange> <observationRange> <text>21-32</text> </observationRange> </referenceRange> </observation> </component> </organizer> </entry> <entry> <organizer moodCode="EVN " classCode="BATTERY"> <templateId root="05.27.840.1.235836.10...4.1" / > <id nullFlavor="NA" /> <code codeSystem="local" code="CBC" displayName="CBC" /> <statusCode code="completed" /> <component> <observation moodCode="EVN" classCode="OBS"> <templateId root= "840.1.744050.01.28.22.4.2" /> <id nullFlavor="NA" /> < code codeSystem="local" code="CBCCOM" displayName="COMMENT" /> < statusCode code="completed" /> <effectiveTime value="" /> <value unit="" xsi:type="PQ" value="REVIEWED" /> < referenceRange> <observationRange> <text /> < /observationRange> </referenceRange> </observation> </ component> <component> <observation moodCode="EVN" classCode="OBS"> <templateId root="840.1.354564.01.28.22.4.2" /> <id nullFlavor="NA" /> <code codeSystem="local" code="MCH" displayName= "MEAN CELL HGB" /> <statusCode code="completed" /> < effectiveTime value="" /> <value unit="pg" xsi:type="PQ" value="26.3" /> <interpretationCode codeSystem="local" code="*" /> <referenceRange> <observationRange> <text>27.0- 33.0</text> </observationRange> </referenceRange> </ observation> </component> <component> <observation moodCode= "EVN" classCode="OBS"> <templateId root="05.27.840.1.772707.01.28.22.4.2 " /> <id nullFlavor="NA" /> <code codeSystem="local" code= "MCHC" displayName="MEAN CELL HGB CONCENTRATION" /> <statusCode code= "completed" /> <effectiveTime value="" /> <value unit="g/dL" xsi:type="PQ" value="31.6" /> <interpretationCode codeSystem="local" code="*" /> <referenceRange> < observationRange> <text>32.0-37.0</text> </ observationRange> </referenceRange> </observation> </ component> <component> <observation moodCode="EVN" classCode="OBS"> <templateId root="216.840.1.647414.01.28.224.2" /> <id nullFlavor="NA" /> <code codeSystem="local" code="MCV" displayName= "MEAN CELL VOLUME" /> <statusCode code="completed" /> < effectiveTime value="" /> <value unit="fl" xsi:type="PQ" value="83.2" /> <referenceRange> <observationRange> <text>80.0-100.0</text> </observationRange> </ referenceRange> </observation> </component> <component> <observation moodCode="EVN" classCode="OBS"> <templateId root= "216.840.1.235679.01.28.224.2" /> <id nullFlavor="NA" /> < code codeSystem="local" code="RBC" displayName="RED BLOOD CELL" /> < statusCode code="completed" /> <effectiveTime value="" /> <value unit="m/cumm" xsi:type="PQ" value="3.04" /> < interpretationCode codeSystem="local" code="*" /> <referenceRange> <observationRange> <text>4.00-6.00</text> </ observationRange> </referenceRange> </observation> </ component> <component> <observation moodCode="EVN" classCode="OBS"> <templateId root="05.27.840.1.514853.10.20.22.4.2" /> <id nullFlavor="NA" /> <code codeSystem="local" code="RDW" displayName=" RED CELL DISTRIBUTION WIDTH" /> <statusCode code="completed" /> <effectiveTime value="520237892996" /> <value unit="%" xsi:type= "PQ" value="15.5" /> <referenceRange> <observationRange> <text>11.0-15.6</text> </observationRange> </ referenceRange> </observation> </component> <component> <observation moodCode="EVN" classCode="OBS"> <templateId root= "05.27.840.1.202630.10..22.4.2" /> <id nullFlavor="NA" /> < code codeSystem="local" code="WBC" displayName="WHITE BLOOD CELL" /> < statusCode code="completed" /> <effectiveTime value="380219078830" /> <value unit="k/cumm" xsi:type="PQ" value="10.3" /> < interpretationCode codeSystem="local" code="*" /> <referenceRange> <observationRange> <text>5.0-10.0</text> </ observationRange> </referenceRange> </observation> </ component> <component> <observation moodCode="EVN" classCode="OBS"> <templateId root="05.27.840.1.711192.10.20.22.4.2" /> <id nullFlavor="NA" /> <code codeSystem="local" code="HGBT" displayName= "HEMOGLOBIN" /> <statusCode code="completed" /> < effectiveTime value="593053365799" /> <value unit="gm/dL" xsi:type="PQ " value="8.0" /> <interpretationCode codeSystem="local" code="*" /> <referenceRange> <observationRange> <text>12.0- 16.0</text> </observationRange> </referenceRange> </ observation> </component> <component> <observation moodCode= "EVN" classCode="OBS"> <templateId root="2.16.840.1.401342.10.20.22.4.2 " /> <id nullFlavor="NA" /> <code codeSystem="local" code= "HCTT" displayName="HEMATOCRIT" /> <statusCode code="completed" /> <effectiveTime value="055302805649" /> <value unit="%" xsi: type="PQ" value="25.3" /> <interpretationCode codeSystem="local" code= "*" /> <referenceRange> <observationRange> < text>37.0-47.0</text> </observationRange> </referenceRange> </observation> </component> <component> <observation moodCode="EVN" classCode="OBS"> <templateId root= "2.16.840.1.733442.10..22.4.2" /> <id nullFlavor="NA" /> < code codeSystem="local" code="PLT" displayName="PLATELET COUNT" /> < statusCode code="completed" /> <effectiveTime value="" /> <value unit="k/cumm" xsi:type="PQ" value="123" /> < interpretationCode codeSystem="local" code="*" /> <referenceRange> <observationRange> <text>150-400</text> </ observationRange> </referenceRange> </observation> </ component> </organizer> </entry> <entry> <organizer moodCode="EVN" classCode="BATTERY"> <templateId root="05.27.840.1.597560.10.4.1" /> <id nullFlavor="NA" /> <code codeSystem="local" code="GLUMON" displayName="GLUCOSE (POC)" /> <statusCode code="completed" /> < component> <observation moodCode="EVN" classCode="OBS"> < templateId root="840.1.257078.01.28.22.4.2" /> <id nullFlavor="NA " /> <code codeSystem="local" code="GLUMON" displayName="GLUCOSE (POC) " /> <statusCode code="completed" /> <effectiveTime value= "202209070624" /> <value unit="mg/dL" xsi:type="PQ" value="97" /> <referenceRange> <observationRange> <text>70-99</ text> </observationRange> </referenceRange> </ observation> </component> </organizer> </entry> <entry> <organizer moodCode="EVN" classCode="BATTERY"> <templateId root= "05.27.840.1.269325.01.28.22.4.1" /> <id nullFlavor="NA" /> <code codeSystem="local" code="PTT" displayName="PARTIAL THROMBOPLASTIN TIME" /> <statusCode code="completed" /> <component> <observation moodCode= "EVN" classCode="OBS"> <templateId root="05.27.840.1.562850.01.28..4.2 " /> <id nullFlavor="NA" /> <code codeSystem="local" code="PTT " displayName="PARTIAL THROMBOPLASTIN TIME" /> <statusCode code= "completed" /> <effectiveTime value="548194898710" /> <value unit="sec" xsi:type="PQ" value="66" /> <interpretationCode codeSystem= "local" code="*" /> <referenceRange> <observationRange> <text>23-39</text> </observationRange> </ referenceRange> </observation> </component> </organizer> </entry > <entry> <organizer moodCode="EVN" classCode="BATTERY"> <templateId root="16.840.1.849817.10.20.22.4.1" /> <id nullFlavor="NA" /> <code codeSystem="local" code="GLUMON" displayName="GLUCOSE (POC)" /> < statusCode code="completed" /> <component> <observation moodCode= "EVN" classCode="OBS"> <templateId root="05.27.840.1.776921.10.20.22.4.2 " /> <id nullFlavor="NA" /> <code codeSystem="local" code= "GLUMON" displayName="GLUCOSE (POC)" /> <statusCode code="completed" / > <effectiveTime value="880500993450" /> <value unit="mg/dL" xsi:type="PQ" value="111" /> <interpretationCode codeSystem="local" code="*" /> <referenceRange> <observationRange> <text>70-99</text> </observationRange> </referenceRange> </observation> </component> </organizer> </entry> <entry> < organizer moodCode="EVN" classCode="BATTERY"> <templateId root= "05.27.840.1.803450.10.20.22.4.1" /> <id nullFlavor="NA" /> <code codeSystem="local" code="VANCT" displayName="VANCOMYCIN TROUGH" /> < statusCode code="completed" /> <component> <observation moodCode= "EVN" classCode="OBS"> <templateId root="2.16.840.1.845445.10..22.4.2 " /> <id nullFlavor="NA" /> <code codeSystem="local" code= "VANCT" displayName="VANCOMYCIN TROUGH" /> <statusCode code="completed " /> <effectiveTime value="258195564256" /> <value unit="mcg/ mL" xsi:type="PQ" value="8.1" /> <referenceRange> < observationRange> <text>5.0-20.0</text> </ observationRange> </referenceRange> </observation> </ component> </organizer> </entry> <entry> <organizer moodCode="EVN" classCode="BATTERY"> <templateId root="2.16.840.1.557442.10..22.4.1" /> <id nullFlavor="NA" /> <code codeSystem="local" code="GLUMON" displayName="GLUCOSE (POC)" /> <statusCode code="completed" /> < component> <observation moodCode="EVN" classCode="OBS"> < templateId root="2.16.840.1.929091.10.20.22.4.2" /> <id nullFlavor="NA " /> <code codeSystem="local" code="GLUMON" displayName="GLUCOSE (POC) " /> <statusCode code="completed" /> <effectiveTime value= "355684835551" /> <value unit="mg/dL" xsi:type="PQ" value="115" /> <interpretationCode codeSystem="local" code="*" /> < referenceRange> <observationRange> <text>70-99</text> </observationRange> </referenceRange> </observation> </component> </organizer> </entry> <entry> <organizer moodCode="EVN " classCode="BATTERY"> <templateId root="840.1.642792.10.4.1" / > <id nullFlavor="NA" /> <code codeSystem="local" code="PTTH" displayName="PTT HEPARIN PROTOCOLS" /> <statusCode code="completed" /> <component> <observation moodCode="EVN" classCode="OBS"> < templateId root="840.1.314029.01.28.22.4.2" /> <id nullFlavor="NA " /> <code codeSystem="local" code="PTT" displayName="PARTIAL THROMBOPLASTIN TIME" /> <statusCode code="completed" /> < effectiveTime value="167294194339" /> <value unit="sec" xsi:type="PQ" value="61" /> <interpretationCode codeSystem="local" code="*" /> <referenceRange> <observationRange> <text>23-39</ text> </observationRange> </referenceRange> </ observation> </component> </organizer> </entry> <entry> <organizer moodCode="EVN" classCode="BATTERY"> <templateId root= "840.1.067942.01.28.22.4.1" /> <id nullFlavor="NA" /> <code codeSystem="local" code="GLUMON" displayName="GLUCOSE (POC)" /> < statusCode code="completed" /> <component> <observation moodCode= "EVN" classCode="OBS"> <templateId root="840.1.566896.10.4.2 " /> <id nullFlavor="NA" /> <code codeSystem="local" code= "GLUMON" displayName="GLUCOSE (POC)" /> <statusCode code="completed" / > <effectiveTime value="505512287391" /> <value unit="mg/dL" xsi:type="PQ" value="106" /> <interpretationCode codeSystem="local" code="*" /> <referenceRange> <observationRange> <text>70-99</text> </observationRange> </referenceRange> </observation> </component> </organizer> </entry> <entry> < organizer moodCode="EVN" classCode="BATTERY"> <templateId root= "16.840.1.350742.10..22.4.1" /> <id nullFlavor="NA" /> <code codeSystem="local" code="GLUMON" displayName="GLUCOSE (POC)" /> < statusCode code="completed" /> <component> <observation moodCode= "EVN" classCode="OBS"> <templateId root="05.27.840.1.417562.10..22.4.2 " /> <id nullFlavor="NA" /> <code codeSystem="local" code= "GLUMON" displayName="GLUCOSE (POC)" /> <statusCode code="completed" / > <effectiveTime value="882301576222" /> <value unit="mg/dL" xsi:type="PQ" value="112" /> <interpretationCode codeSystem="local" code="*" /> <referenceRange> <observationRange> <text>70-99</text> </observationRange> </referenceRange> </observation> </component> </organizer> </entry> <entry> < organizer moodCode="EVN" classCode="BATTERY"> <templateId root= "05.27.840.1.300776.10..22.4.1" /> <id nullFlavor="NA" /> <code codeSystem="local" code="GLUMON" displayName="GLUCOSE (POC)" /> < statusCode code="completed" /> <component> <observation moodCode= "EVN" classCode="OBS"> <templateId root="216.840.1.632925.10..22.4.2 " /> <id nullFlavor="NA" /> <code codeSystem="local" code= "GLUMON" displayName="GLUCOSE (POC)" /> <statusCode code="completed" / > <effectiveTime value="804677869375" /> <value unit="mg/dL" xsi:type="PQ" value="118" /> <interpretationCode codeSystem="local" code="*" /> <referenceRange> <observationRange> <text>70-99</text> </observationRange> </referenceRange> </observation> </component> </organizer> </entry> <entry> < organizer moodCode="EVN" classCode="BATTERY"> <templateId root= "216.840.1.036058.10..22.4.1" /> <id nullFlavor="NA" /> <code codeSystem="local" code="PTTH" displayName="PTT HEPARIN PROTOCOLS" /> < statusCode code="completed" /> <component> <observation moodCode= "EVN" classCode="OBS"> <templateId root="216.840.1.384887.10..22.4.2 " /> <id nullFlavor="NA" /> <code codeSystem="local" code="PTT " displayName="PARTIAL THROMBOPLASTIN TIME" /> <statusCode code= "completed" /> <effectiveTime value="133862815761" /> <value unit="sec" xsi:type="PQ" value="102" /> <interpretationCode codeSystem= "local" code="*" /> <referenceRange> <observationRange> <text>23-39</text> </observationRange> </ referenceRange> </observation> </component> </organizer> </entry > <entry> <organizer moodCode="EVN" classCode="BATTERY"> <templateId root="05.27.840.1.442024.10.4.1" /> <id nullFlavor="NA" /> <code codeSystem="local" code="GLUMON" displayName="GLUCOSE (POC)" /> < statusCode code="completed" /> <component> <observation moodCode= "EVN" classCode="OBS"> <templateId root="840.1.182995.01.28.22.4.2 " /> <id nullFlavor="NA" /> <code codeSystem="local" code= "GLUMON" displayName="GLUCOSE (POC)" /> <statusCode code="completed" / > <effectiveTime value="280849721555" /> <value unit="mg/dL" xsi:type="PQ" value="98" /> <referenceRange> < observationRange> <text>70-99</text> </observationRange > </referenceRange> </observation> </component> </ organizer> </entry> <entry> <organizer moodCode="EVN" classCode="BATTERY"> <templateId root="05.27.840.1.166380.01.28.22.4.1" /> <id nullFlavor= "NA" /> <code codeSystem="local" code="PTTH" displayName="PTT HEPARIN PROTOCOLS" /> <statusCode code="completed" /> <component> < observation moodCode="EVN" classCode="OBS"> <templateId root= "05.27.840.1.638172.01.28.22.4.2" /> <id nullFlavor="NA" /> < code codeSystem="local" code="PTT" displayName="PARTIAL THROMBOPLASTIN TIME" /> <statusCode code="completed" /> <effectiveTime value= "964750344701" /> <value unit="sec" xsi:type="PQ" value="202" /> <interpretationCode codeSystem="local" code="" /> <referenceRange > <observationRange> <text>23-39</text> </ observationRange> </referenceRange> </observation> </ component> </organizer> </entry> <entry> <organizer moodCode="EVN" classCode="BATTERY"> <templateId root="16.840.1.602202.10.20.22.4.1" /> <id nullFlavor="NA" /> <code codeSystem="local" code="GLUMON" displayName="GLUCOSE (POC)" /> <statusCode code="completed" /> < component> <observation moodCode="EVN" classCode="OBS"> < templateId root="05.27.840.1.437482.10.20.22.4.2" /> <id nullFlavor="NA " /> <code codeSystem="local" code="GLUMON" displayName="GLUCOSE (POC) " /> <statusCode code="completed" /> <effectiveTime value= "899789412675" /> <value unit="mg/dL" xsi:type="PQ" value="106" /> <interpretationCode codeSystem="local" code="*" /> < referenceRange> <observationRange> <text>70-99</text> </observationRange> </referenceRange> </observation> </component> </organizer> </entry> <entry> <organizer moodCode="EVN " classCode="BATTERY"> <templateId root="05.27.840.1.379915.10..22.4.1" / > <id nullFlavor="NA" /> <code codeSystem="local" code="GLUMON" displayName="GLUCOSE (POC)" /> <statusCode code="completed" /> < component> <observation moodCode="EVN" classCode="OBS"> < templateId root="216.840.1.704820.10...4.2" /> <id nullFlavor="NA " /> <code codeSystem="local" code="GLUMON" displayName="GLUCOSE (POC) " /> <statusCode code="completed" /> <effectiveTime value= "" /> <value unit="mg/dL" xsi:type="PQ" value="102" /> <interpretationCode codeSystem="local" code="*" /> < referenceRange> <observationRange> <text>70-99</text> </observationRange> </referenceRange> </observation> </component> </organizer> </entry> <entry> <organizer moodCode="EVN " classCode="BATTERY"> <templateId root="216.840.1.448183.10..22.4.1" / > <id nullFlavor="NA" /> <code codeSystem="local" code="PTTH" displayName="PTT HEPARIN PROTOCOLS" /> <statusCode code="completed" /> <component> <observation moodCode="EVN" classCode="OBS"> < templateId root="216.840.1.465145.10..22.4.2" /> <id nullFlavor="NA " /> <code codeSystem="local" code="PTT" displayName="PARTIAL THROMBOPLASTIN TIME" /> <statusCode code="completed" /> < effectiveTime value="304600313414" /> <value unit="sec" xsi:type="PQ" value="79" /> <interpretationCode codeSystem="local" code="*" /> <referenceRange> <observationRange> <text>23-39</ text> </observationRange> </referenceRange> </ observation> </component> </organizer> </entry> <entry> <organizer moodCode="EVN" classCode="BATTERY"> <templateId root= "05.27.840.1.764430.10..4.1" /> <id nullFlavor="NA" /> <code codeSystem="local" code="GLUMON" displayName="GLUCOSE (POC)" /> < statusCode code="completed" /> <component> <observation moodCode= "EVN" classCode="OBS"> <templateId root="840.1.007855.01.28.22.4.2 " /> <id nullFlavor="NA" /> <code codeSystem="local" code= "GLUMON" displayName="GLUCOSE (POC)" /> <statusCode code="completed" / > <effectiveTime value="340070537425" /> <value unit="mg/dL" xsi:type="PQ" value="99" /> <referenceRange> < observationRange> <text>70-99</text> </observationRange > </referenceRange> </observation> </component> </ organizer> </entry> <entry> <organizer moodCode="EVN" classCode="BATTERY"> <templateId root="840.1.599470.01.28.22.4.1" /> <id nullFlavor= "NA" /> <code codeSystem="local" code="PTTH" displayName="PTT HEPARIN PROTOCOLS" /> <statusCode code="completed" /> <component> < observation moodCode="EVN" classCode="OBS"> <templateId root= "05.27.840.1.262402.01.28..4.2" /> <id nullFlavor="NA" /> < code codeSystem="local" code="PTT" displayName="PARTIAL THROMBOPLASTIN TIME" /> <statusCode code="completed" /> <effectiveTime value= "042476475662" /> <value unit="sec" xsi:type="PQ" value="79" /> <interpretationCode codeSystem="local" code="*" /> <referenceRange> <observationRange> <text>23-39</text> </ observationRange> </referenceRange> </observation> </ component> </organizer> </entry> <entry> <organizer moodCode="EVN" classCode="BATTERY"> <templateId root="16.840.1.362302.10.20.22.4.1" /> <id nullFlavor="NA" /> <code codeSystem="local" code="GLUMON" displayName="GLUCOSE (POC)" /> <statusCode code="completed" /> < component> <observation moodCode="EVN" classCode="OBS"> < templateId root="16.840.1.664787.10.20.22.4.2" /> <id nullFlavor="NA " /> <code codeSystem="local" code="GLUMON" displayName="GLUCOSE (POC) " /> <statusCode code="completed" /> <effectiveTime value= "315741889814" /> <value unit="mg/dL" xsi:type="PQ" value="104" /> <interpretationCode codeSystem="local" code="*" /> < referenceRange> <observationRange> <text>70-99</text> </observationRange> </referenceRange> </observation> </component> </organizer> </entry> <entry> <organizer moodCode="EVN " classCode="BATTERY"> <templateId root="16.840.1.201624.10.20.22.4.1" / > <id nullFlavor="NA" /> <code codeSystem="local" code="GLUMON" displayName="GLUCOSE (POC)" /> <statusCode code="completed" /> < component> <observation moodCode="EVN" classCode="OBS"> < templateId root="216.840.1.381226.10..22.4.2" /> <id nullFlavor="NA " /> <code codeSystem="local" code="GLUMON" displayName="GLUCOSE (POC) " /> <statusCode code="completed" /> <effectiveTime value= "914639464439" /> <value unit="mg/dL" xsi:type="PQ" value="98" /> <referenceRange> <observationRange> <text>70-99</ text> </observationRange> </referenceRange> </ observation> </component> </organizer> </entry> <entry> <organizer moodCode="EVN" classCode="BATTERY"> <templateId root= "216.840.1.687230.10..22.4.1" /> <id nullFlavor="NA" /> <code codeSystem="local" code="PTTH" displayName="PTT HEPARIN PROTOCOLS" /> < statusCode code="completed" /> <component> <observation moodCode= "EVN" classCode="OBS"> <templateId root="216.840.1.342281.10..22.4.2 " /> <id nullFlavor="NA" /> <code codeSystem="local" code="PTT " displayName="PARTIAL THROMBOPLASTIN TIME" /> <statusCode code= "completed" /> <effectiveTime value="097908365485" /> <value unit="sec" xsi:type="PQ" value="62" /> <interpretationCode codeSystem= "local" code="*" /> <referenceRange> <observationRange> <text>23-39</text> </observationRange> </ referenceRange> </observation> </component> </organizer> </entry > <entry> <organizer moodCode="EVN" classCode="BATTERY"> <templateId root="05.27.840.1.701377.10..4.1" /> <id nullFlavor="NA" /> <code codeSystem="local" code="CBC" displayName="CBC" /> <statusCode code= "completed" /> <component> <observation moodCode="EVN" classCode= "OBS"> <templateId root="05.27.840.1.685291.10..4.2" /> < id nullFlavor="NA" /> <code codeSystem="local" code="CBCCOM" displayName="COMMENT" /> <statusCode code="completed" /> < effectiveTime value="552046861645" /> <value unit="" xsi:type="PQ" value="CC" /> <referenceRange> <observationRange> <text /> </observationRange> </referenceRange> </ observation> </component> <component> <observation moodCode= "EVN" classCode="OBS"> <templateId root="05.27.840.1.636262...4.2 " /> <id nullFlavor="NA" /> <code codeSystem="local" code="MCH " displayName="MEAN CELL HGB" /> <statusCode code="completed" /> <effectiveTime value="" /> <value unit="pg" xsi:type= "PQ" value="25.6" /> <interpretationCode codeSystem="local" code="*" / > <referenceRange> <observationRange> <text> 27.0-33.0</text> </observationRange> </referenceRange> </observation> </component> <component> <observation moodCode="EVN" classCode="OBS"> <templateId root= "840.1.073083.10.20.22.4.2" /> <id nullFlavor="NA" /> < code codeSystem="local" code="MCHC" displayName="MEAN CELL HGB CONCENTRATION" / > <statusCode code="completed" /> <effectiveTime value= "" /> <value unit="g/dL" xsi:type="PQ" value="30.6" /> <interpretationCode codeSystem="local" code="*" /> < referenceRange> <observationRange> <text>32.0-37.0</text > </observationRange> </referenceRange> </observation > </component> <component> <observation moodCode="EVN" classCode="OBS"> <templateId root="840.1.683445.1022.4.2" /> <id nullFlavor="NA" /> <code codeSystem="local" code="MCV" displayName="MEAN CELL VOLUME" /> <statusCode code="completed" /> <effectiveTime value="" /> <value unit="fl" xsi:type= "PQ" value="83.7" /> <referenceRange> <observationRange> <text>80.0-100.0</text> </observationRange> </ referenceRange> </observation> </component> <component> <observation moodCode="EVN" classCode="OBS"> <templateId root= "840.1.872958.10.2022.4.2" /> <id nullFlavor="NA" /> < code codeSystem="local" code="RBC" displayName="RED BLOOD CELL" /> < statusCode code="completed" /> <effectiveTime value="" /> <value unit="m/cumm" xsi:type="PQ" value="2.89" /> < interpretationCode codeSystem="local" code="*" /> <referenceRange> <observationRange> <text>4.00-6.00</text> </ observationRange> </referenceRange> </observation> </ component> <component> <observation moodCode="EVN" classCode="OBS"> <templateId root="16.840.1.928569.10.20.22.4.2" /> <id nullFlavor="NA" /> <code codeSystem="local" code="RDW" displayName=" RED CELL DISTRIBUTION WIDTH" /> <statusCode code="completed" /> <effectiveTime value="346903020110" /> <value unit="%" xsi:type= "PQ" value="15.4" /> <referenceRange> <observationRange> <text>11.0-15.6</text> </observationRange> </ referenceRange> </observation> </component> <component> <observation moodCode="EVN" classCode="OBS"> <templateId root= "05.27.840.1.231741.10.22.4.2" /> <id nullFlavor="NA" /> < code codeSystem="local" code="WBC" displayName="WHITE BLOOD CELL" /> < statusCode code="completed" /> <effectiveTime value="061125797977" /> <value unit="k/cumm" xsi:type="PQ" value="6.3" /> < referenceRange> <observationRange> <text>5.0-10.0</text > </observationRange> </referenceRange> </observation > </component> <component> <observation moodCode="EVN" classCode="OBS"> <templateId root="16.840.1.205987.10.20.22.4.2" /> <id nullFlavor="NA" /> <code codeSystem="local" code="HGBT" displayName="HEMOGLOBIN" /> <statusCode code="completed" /> < effectiveTime value="517278631623" /> <value unit="gm/dL" xsi:type="PQ " value="7.4" /> <interpretationCode codeSystem="local" code="*" /> <referenceRange> <observationRange> <text>12.0- 16.0</text> </observationRange> </referenceRange> </ observation> </component> <component> <observation moodCode= "EVN" classCode="OBS"> <templateId root="840.1.926335.22.4.2 " /> <id nullFlavor="NA" /> <code codeSystem="local" code= "HCTT" displayName="HEMATOCRIT" /> <statusCode code="completed" /> <effectiveTime value="" /> <value unit="%" xsi: type="PQ" value="24.2" /> <interpretationCode codeSystem="local" code= "*" /> <referenceRange> <observationRange> < text>37.0-47.0</text> </observationRange> </referenceRange> </observation> </component> </organizer> </entry> <entry> < organizer moodCode="EVN" classCode="BATTERY"> <templateId root= "840.1.894346.1022.4.1" /> <id nullFlavor="NA" /> <code codeSystem="local" code="GLUMON" displayName="GLUCOSE (POC)" /> < statusCode code="completed" /> <component> <observation moodCode= "EVN" classCode="OBS"> <templateId root="05.27.840.1.056507.10.2022.4.2 " /> <id nullFlavor="NA" /> <code codeSystem="local" code= "GLUMON" displayName="GLUCOSE (POC)" /> <statusCode code="completed" / > <effectiveTime value="539986666402" /> <value unit="mg/dL" xsi:type="PQ" value="95" /> <referenceRange> < observationRange> <text>70-99</text> </observationRange > </referenceRange> </observation> </component> </ organizer> </entry> <entry> <organizer moodCode="EVN" classCode="BATTERY"> <templateId root="216.840.1.657201.10..22.4.1" /> <id nullFlavor= "NA" /> <code codeSystem="local" code="VANCT" displayName="VANCOMYCIN TROUGH" /> <statusCode code="completed" /> <component> < observation moodCode="EVN" classCode="OBS"> <templateId root= "216.840.1.058331.10..22.4.2" /> <id nullFlavor="NA" /> < code codeSystem="local" code="VANCT" displayName="VANCOMYCIN TROUGH" /> <statusCode code="completed" /> <effectiveTime value="290562614894" / > <value unit="mcg/mL" xsi:type="PQ" value="16.0" /> < referenceRange> <observationRange> <text>5.0-20.0</text > </observationRange> </referenceRange> </observation > </component> </organizer> </entry> <entry> <organizer moodCode= "EVN" classCode="BATTERY"> <templateId root="216.840.1.482588.10..22.4.1 " /> <id nullFlavor="NA" /> <code codeSystem="local" code="GLUMON" displayName="GLUCOSE (POC)" /> <statusCode code="completed" /> < component> <observation moodCode="EVN" classCode="OBS"> < templateId root="2.16.840.1.313397.10.20.22.4.2" /> <id nullFlavor="NA " /> <code codeSystem="local" code="GLUMON" displayName="GLUCOSE (POC) " /> <statusCode code="completed" /> <effectiveTime value= "464680024760" /> <value unit="mg/dL" xsi:type="PQ" value="109" /> <interpretationCode codeSystem="local" code="*" /> < referenceRange> <observationRange> <text>70-99</text> </observationRange> </referenceRange> </observation> </component> </organizer> </entry> <entry> <organizer moodCode="EVN " classCode="BATTERY"> <templateId root="216.840.1.226316.10.20.22.4.1" / > <id nullFlavor="NA" /> <code codeSystem="local" code="GLUMON" displayName="GLUCOSE (POC)" /> <statusCode code="completed" /> < component> <observation moodCode="EVN" classCode="OBS"> < templateId root="2.16.840.1.940064.10.20.22.4.2" /> <id nullFlavor="NA " /> <code codeSystem="local" code="GLUMON" displayName="GLUCOSE (POC) " /> <statusCode code="completed" /> <effectiveTime value= "203948505366" /> <value unit="mg/dL" xsi:type="PQ" value="114" /> <interpretationCode codeSystem="local" code="*" /> < referenceRange> <observationRange> <text>70-99</text> </observationRange> </referenceRange> </observation> </component> </organizer> </entry> <entry> <organizer moodCode="EVN " classCode="BATTERY"> <templateId root="840.1.719068.01.28.22.4.1" / > <id nullFlavor="NA" /> <code codeSystem="local" code="GLUMON" displayName="GLUCOSE (POC)" /> <statusCode code="completed" /> < component> <observation moodCode="EVN" classCode="OBS"> < templateId root="840.1.576770.01.28.22.4.2" /> <id nullFlavor="NA " /> <code codeSystem="local" code="GLUMON" displayName="GLUCOSE (POC) " /> <statusCode code="completed" /> <effectiveTime value= "354503492767" /> <value unit="mg/dL" xsi:type="PQ" value="109" /> <interpretationCode codeSystem="local" code="*" /> < referenceRange> <observationRange> <text>70-99</text> </observationRange> </referenceRange> </observation> </component> </organizer> </entry> <entry> <organizer moodCode="EVN " classCode="BATTERY"> <templateId root="840.1.139114.01.28.22.4.1" / > <id nullFlavor="NA" /> <code codeSystem="local" code="PTTH" displayName="PTT HEPARIN PROTOCOLS" /> <statusCode code="completed" /> <component> <observation moodCode="EVN" classCode="OBS"> < templateId root="05.27.840.1.742893.10.4.2" /> <id nullFlavor="NA " /> <code codeSystem="local" code="PTT" displayName="PARTIAL THROMBOPLASTIN TIME" /> <statusCode code="completed" /> < effectiveTime value="483752431941" /> <value unit="sec" xsi:type="PQ" value="81" /> <interpretationCode codeSystem="local" code="*" /> <referenceRange> <observationRange> <text>23-39</ text> </observationRange> </referenceRange> </ observation> </component> </organizer> </entry> <entry> <organizer moodCode="EVN" classCode="BATTERY"> <templateId root= "216.840.1.721399.10.20.22.4.1" /> <id nullFlavor="NA" /> <code codeSystem="local" code="GLUMON" displayName="GLUCOSE (POC)" /> < statusCode code="completed" /> <component> <observation moodCode= "EVN" classCode="OBS"> <templateId root="16.840.1.701311.10.20.22.4.2 " /> <id nullFlavor="NA" /> <code codeSystem="local" code= "GLUMON" displayName="GLUCOSE (POC)" /> <statusCode code="completed" / > <effectiveTime value="213687311158" /> <value unit="mg/dL" xsi:type="PQ" value="106" /> <interpretationCode codeSystem="local" code="*" /> <referenceRange> <observationRange> <text>70-99</text> </observationRange> </referenceRange> </observation> </component> </organizer> </entry> <entry> < organizer moodCode="EVN" classCode="BATTERY"> <templateId root= "16.840.1.593414.10.20.22.4.1" /> <id nullFlavor="NA" /> <code codeSystem="local" code="GLUMON" displayName="GLUCOSE (POC)" /> < statusCode code="completed" /> <component> <observation moodCode= "EVN" classCode="OBS"> <templateId root="216.840.1.844289.10..22.4.2 " /> <id nullFlavor="NA" /> <code codeSystem="local" code= "GLUMON" displayName="GLUCOSE (POC)" /> <statusCode code="completed" / > <effectiveTime value="551918741596" /> <value unit="mg/dL" xsi:type="PQ" value="92" /> <referenceRange> < observationRange> <text>70-99</text> </observationRange > </referenceRange> </observation> </component> </ organizer> </entry> <entry> <organizer moodCode="EVN" classCode="BATTERY"> <templateId root="216.840.1.188594.10..22.4.1" /> <id nullFlavor= "NA" /> <code codeSystem="local" code="GLUMON" displayName="GLUCOSE (POC)" /> <statusCode code="completed" /> <component> <observation moodCode="EVN" classCode="OBS"> <templateId root= "216.840.1.180206.10..22.4.2" /> <id nullFlavor="NA" /> < code codeSystem="local" code="GLUMON" displayName="GLUCOSE (POC)" /> < statusCode code="completed" /> <effectiveTime value="916379906328" /> <value unit="mg/dL" xsi:type="PQ" value="122" /> < interpretationCode codeSystem="local" code="*" /> <referenceRange> <observationRange> <text>70-99</text> </ observationRange> </referenceRange> </observation> </ component> </organizer> </entry> <entry> <organizer moodCode="EVN" classCode="BATTERY"> <templateId root="840.1.203068.01.28.22.4.1" /> <id nullFlavor="NA" /> <code codeSystem="local" code="GLUMON" displayName="GLUCOSE (POC)" /> <statusCode code="completed" /> < component> <observation moodCode="EVN" classCode="OBS"> < templateId root="840.1.135217.01.28.22.4.2" /> <id nullFlavor="NA " /> <code codeSystem="local" code="GLUMON" displayName="GLUCOSE (POC) " /> <statusCode code="completed" /> <effectiveTime value= "663156916704" /> <value unit="mg/dL" xsi:type="PQ" value="102" /> <interpretationCode codeSystem="local" code="*" /> < referenceRange> <observationRange> <text>70-99</text> </observationRange> </referenceRange> </observation> </component> </organizer> </entry> <entry> <organizer moodCode="EVN " classCode="BATTERY"> <templateId root="[id number]" / > <id nullFlavor="NA" /> <code codeSystem="local" code="BCLACT" displayName="BC REFLEX LACTIC ACID" /> <statusCode code="completed" /> <component> <observation moodCode="EVN" classCode="OBS"> < templateId root="[id number]" /> <id nullFlavor="NA " /> <code codeSystem="local" code="LACT" displayName="LACTIC ACID" /> <statusCode code="completed" /> <effectiveTime value= "612642555237" /> <value unit="mmol/L" xsi:type="PQ" value="0.5" /> <referenceRange> <observationRange> <text>0.5-2.0 </text> </observationRange> </referenceRange> </ observation> </component> </organizer> </entry> <entry> <organizer moodCode="EVN" classCode="BATTERY"> <templateId root= "2.16.840.1.489645.10.20.22.4.1" /> <id nullFlavor="NA" /> <code codeSystem="local" code="BC" displayName="BLOOD CULTURE" /> <statusCode code="completed" /> <component> <observation moodCode="EVN" classCode="OBS"> <templateId root="2.16.840.1.380449.10.20.22.4.2" /> <id nullFlavor="NA" /> <code codeSystem="local" code="MB" displayName="Microbiology" /> <statusCode code="completed" /> <effectiveTime value="712197498997" /> <value xsi:type="ST" value="<pre ><b>BLOOD CULTURE</b> See BelowIs this the first BLOOD CULTURE or a possible SEPSIS patient? YBLOOD CULTURE(F) Sanam Date/Time: 04/13/2015 21: 12 Crow Date/Time: 04/19/2015 07:32SOURCE: BLOODSPEC DESC: [id number] [facility] [place] [address]</pre>" /> <referenceRange> < observationRange> <text /> </observationRange> </referenceRange> </observation> </component> </organizer> </ entry> <entry> <organizer moodCode="EVN" classCode="BATTERY"> < templateId root="216.840.1.680004.10..22.4.1" /> <id nullFlavor="NA" /> <code codeSystem="local" code="BC" displayName="BLOOD CULTURE" /> < statusCode code="completed" /> <component> <observation moodCode= "EVN" classCode="OBS"> <templateId root="840.1.933293.10..4.2 " /> <id nullFlavor="NA" /> <code codeSystem="local" code="MB " displayName="Microbiology" /> <statusCode code="completed" /> <effectiveTime value="643279567843" /> <value xsi:type="ST" value="< pre><b>BLOOD CULTURE</b> See BelowIs this the first BLOOD CULTURE or a possible SEPSIS patient? YBLOOD CULTURE(F) Sanam Date/Time: 04/13/2015 21: 22 Crow Date/Time: 04/19/2015 07:32SOURCE: BLOODSPEC DESC: [id number] [facility] [place] [address]</pre>" /> <referenceRange> < observationRange> <text /> </observationRange> </referenceRange> </observation> </component> </organizer> </ entry> <entry> <organizer moodCode="EVN" classCode="BATTERY"> < templateId root="05.27.840.1.479139.10...4.1" /> <id nullFlavor="NA" /> <code codeSystem="local" code="GLUMON" displayName="GLUCOSE (POC)" /> <statusCode code="completed" /> <component> <observation moodCode= "EVN" classCode="OBS"> <templateId root="16.840.1.674766.10..22.4.2 " /> <id nullFlavor="NA" /> <code codeSystem="local" code= "GLUMON" displayName="GLUCOSE (POC)" /> <statusCode code="completed" / > <effectiveTime value="319510587984" /> <value unit="mg/dL" xsi:type="PQ" value="99" /> <referenceRange> < observationRange> <text>70-99</text> </observationRange > </referenceRange> </observation> </component> </ organizer> </entry> <entry> <organizer moodCode="EVN" classCode="BATTERY"> <templateId root="216.840.1.956269.10.20.22.4.1" /> <id nullFlavor= "NA" /> <code codeSystem="local" code="PTTH" displayName="PTT HEPARIN PROTOCOLS" /> <statusCode code="completed" /> <component> < observation moodCode="EVN" classCode="OBS"> <templateId root= "216.840.1.982869.10.20.22.4.2" /> <id nullFlavor="NA" /> < code codeSystem="local" code="PTT" displayName="PARTIAL THROMBOPLASTIN TIME" /> <statusCode code="completed" /> <effectiveTime value= "578070657590" /> <value unit="sec" xsi:type="PQ" value="89" /> <interpretationCode codeSystem="local" code="*" /> <referenceRange> <observationRange> <text>23-39</text> </ observationRange> </referenceRange> </observation> </ component> </organizer> </entry> <entry> <organizer moodCode="EVN" classCode="BATTERY"> <templateId root="216.840.1.385172.10.20.22.4.1" /> <id nullFlavor="NA" /> <code codeSystem="local" code="METAB" displayName="METABOLIC PANEL, BASIC" /> <statusCode code="completed" /> <component> <observation moodCode="EVN" classCode="OBS"> < templateId root="05.27.840.1.163204.10.4.2" /> <id nullFlavor="NA " /> <code codeSystem="local" code="K" displayName="POTASSIUM" /> <statusCode code="completed" /> <effectiveTime value=" " /> <value unit="mmol/L" xsi:type="PQ" value="3.7" /> < referenceRange> <observationRange> <text>3.5-5.3</text> </observationRange> </referenceRange> </observation > </component> <component> <observation moodCode="EVN" classCode="OBS"> <templateId root="840.1.049548.01.28.22.4.2" /> <id nullFlavor="NA" /> <code codeSystem="local" code="eGFR" displayName="EST GFR (MDRD)" /> <statusCode code="completed" /> <effectiveTime value="" /> <value unit="mL/min" xsi:type ="PQ" value="> 60" /> <referenceRange> <observationRange > <text>> 59</text> </observationRange> </ referenceRange> </observation> </component> <component> <observation moodCode="EVN" classCode="OBS"> <templateId root= "05.27.840.1.726539.01.28.22.4.2" /> <id nullFlavor="NA" /> < code codeSystem="local" code="GAP" displayName="ANION GAP" /> < statusCode code="completed" /> <effectiveTime value="" /> <value unit="mmol/L" xsi:type="PQ" value="9" /> < referenceRange> <observationRange> <text>5-15</text> </observationRange> </referenceRange> </observation> </component> <component> <observation moodCode="EVN" classCode= "OBS"> <templateId root="216.840.1.482601.10..22.4.2" /> < id nullFlavor="NA" /> <code codeSystem="local" code="eCrCl" displayName ="EST CrCl (CG)" /> <statusCode code="completed" /> < effectiveTime value="731767929698" /> <value unit="mL/min" xsi:type="PQ " value="> 60" /> <referenceRange> <observationRange> <text>> 59</text> </observationRange> </ referenceRange> </observation> </component> <component> <observation moodCode="EVN" classCode="OBS"> <templateId root= "16.840.1.769661.10...4.2" /> <id nullFlavor="NA" /> < code codeSystem="local" code="GLU" displayName="GLUCOSE" /> < statusCode code="completed" /> <effectiveTime value="" /> <value unit="mg/dL" xsi:type="PQ" value="98" /> < referenceRange> <observationRange> <text>70-99</text> </observationRange> </referenceRange> </observation> </component> <component> <observation moodCode="EVN" classCode= "OBS"> <templateId root="16.840.1.419654.10..22.4.2" /> < id nullFlavor="NA" /> <code codeSystem="local" code="CA" displayName= "CALCIUM" /> <statusCode code="completed" /> <effectiveTime value="617537737312" /> <value unit="mg/dL" xsi:type="PQ" value="8.6" / > <referenceRange> <observationRange> <text>8.5 -10.1</text> </observationRange> </referenceRange> </ observation> </component> <component> <observation moodCode= "EVN" classCode="OBS"> <templateId root="216.840.1.204701.10.20.22.4.2 " /> <id nullFlavor="NA" /> <code codeSystem="local" code="BUN " displayName="BLOOD UREA NITROGEN" /> <statusCode code="completed" /> <effectiveTime value="294725882743" /> <value unit="mg/dL" xsi:type="PQ" value="6" /> <interpretationCode codeSystem="local" code= "*" /> <referenceRange> <observationRange> < text>7-20</text> </observationRange> </referenceRange> </observation> </component> <component> <observation moodCode="EVN" classCode="OBS"> <templateId root= "216.840.1.225581.10.20.22.4.2" /> <id nullFlavor="NA" /> < code codeSystem="local" code="CREAT" displayName="CREATININE" /> < statusCode code="completed" /> <effectiveTime value="951388351821" /> <value unit="mg/dL" xsi:type="PQ" value="0.7" /> < referenceRange> <observationRange> <text>0.6-1.0</text> </observationRange> </referenceRange> </observation > </component> <component> <observation moodCode="EVN" classCode="OBS"> <templateId root="2.16.840.1.611716.10..22.4.2" /> <id nullFlavor="NA" /> <code codeSystem="local" code="NA" displayName="SODIUM" /> <statusCode code="completed" /> < effectiveTime value="385842067212" /> <value unit="mmol/L" xsi:type="PQ " value="135" /> <referenceRange> <observationRange> <text>135-148</text> </observationRange> </ referenceRange> </observation> </component> <component> <observation moodCode="EVN" classCode="OBS"> <templateId root= "216.840.1.243890.10..22.4.2" /> <id nullFlavor="NA" /> < code codeSystem="local" code="CL" displayName="CHLORIDE" /> < statusCode code="completed" /> <effectiveTime value="842718510664" /> <value unit="mmol/L" xsi:type="PQ" value="102" /> < referenceRange> <observationRange> <text>98-110</text> </observationRange> </referenceRange> </observation> </component> <component> <observation moodCode="EVN" classCode ="OBS"> <templateId root="216.840.1.979213.10.20.22.4.2" /> < id nullFlavor="NA" /> <code codeSystem="local" code="CO2" displayName= "CARBON DIOXIDE" /> <statusCode code="completed" /> < effectiveTime value="200525625373" /> <value unit="mmol/L" xsi:type="PQ " value="24" /> <referenceRange> <observationRange> <text>21-32</text> </observationRange> </ referenceRange> </observation> </component> </organizer> </entry > <entry> <organizer moodCode="EVN" classCode="BATTERY"> <templateId root="05.27.840.1.404135.10..4.1" /> <id nullFlavor="NA" /> <code codeSystem="local" code="CBC" displayName="CBC" /> <statusCode code= "completed" /> <component> <observation moodCode="EVN" classCode= "OBS"> <templateId root="16.840.1.604665.10..22.4.2" /> < id nullFlavor="NA" /> <code codeSystem="local" code="MCH" displayName= "MEAN CELL HGB" /> <statusCode code="completed" /> < effectiveTime value="254223342852" /> <value unit="pg" xsi:type="PQ" value="25.3" /> <interpretationCode codeSystem="local" code="*" /> <referenceRange> <observationRange> <text>27.0- 33.0</text> </observationRange> </referenceRange> </ observation> </component> <component> <observation moodCode= "EVN" classCode="OBS"> <templateId root="16.840.1.012828.10..4.2 " /> <id nullFlavor="NA" /> <code codeSystem="local" code= "MCHC" displayName="MEAN CELL HGB CONCENTRATION" /> <statusCode code= "completed" /> <effectiveTime value="820229115962" /> <value unit="g/dL" xsi:type="PQ" value="30.6" /> <interpretationCode codeSystem="local" code="*" /> <referenceRange> < observationRange> <text>32.0-37.0</text> </ observationRange> </referenceRange> </observation> </ component> <component> <observation moodCode="EVN" classCode="OBS"> <templateId root="16.840.1.427428.10.4.2" /> <id nullFlavor="NA" /> <code codeSystem="local" code="MCV" displayName= "MEAN CELL VOLUME" /> <statusCode code="completed" /> < effectiveTime value="" /> <value unit="fl" xsi:type="PQ" value="82.8" /> <referenceRange> <observationRange> <text>80.0-100.0</text> </observationRange> </ referenceRange> </observation> </component> <component> <observation moodCode="EVN" classCode="OBS"> <templateId root= "05.27.840.1.558135.01.28.22.4.2" /> <id nullFlavor="NA" /> < code codeSystem="local" code="RBC" displayName="RED BLOOD CELL" /> < statusCode code="completed" /> <effectiveTime value="" /> <value unit="m/cumm" xsi:type="PQ" value="2.96" /> < interpretationCode codeSystem="local" code="*" /> <referenceRange> <observationRange> <text>4.00-6.00</text> </ observationRange> </referenceRange> </observation> </ component> <component> <observation moodCode="EVN" classCode="OBS"> <templateId root="05.27.840.1.733496.01.28.22.4.2" /> <id nullFlavor="NA" /> <code codeSystem="local" code="RDW" displayName=" RED CELL DISTRIBUTION WIDTH" /> <statusCode code="completed" /> <effectiveTime value="" /> <value unit="%" xsi:type= "PQ" value="15.9" /> <interpretationCode codeSystem="local" code="*" / > <referenceRange> <observationRange> <text> 11.0-15.6</text> </observationRange> </referenceRange> </observation> </component> <component> <observation moodCode="EVN" classCode="OBS"> <templateId root= "16.840.1.226913.01.28.22.4.2" /> <id nullFlavor="NA" /> < code codeSystem="local" code="WBC" displayName="WHITE BLOOD CELL" /> < statusCode code="completed" /> <effectiveTime value="725666022907" /> <value unit="k/cumm" xsi:type="PQ" value="5.3" /> < referenceRange> <observationRange> <text>5.0-10.0</text > </observationRange> </referenceRange> </observation > </component> <component> <observation moodCode="EVN" classCode="OBS"> <templateId root="05.27.840.1.396944.01.28.22.4.2" /> <id nullFlavor="NA" /> <code codeSystem="local" code="HGBT" displayName="HEMOGLOBIN" /> <statusCode code="completed" /> < effectiveTime value="411687840365" /> <value unit="gm/dL" xsi:type="PQ " value="7.5" /> <interpretationCode codeSystem="local" code="*" /> <referenceRange> <observationRange> <text>12.0- 16.0</text> </observationRange> </referenceRange> </ observation> </component> <component> <observation moodCode= "EVN" classCode="OBS"> <templateId root="840.1.826663.10.4.2 " /> <id nullFlavor="NA" /> <code codeSystem="local" code= "HCTT" displayName="HEMATOCRIT" /> <statusCode code="completed" /> <effectiveTime value="336206460142" /> <value unit="%" xsi: type="PQ" value="24.5" /> <interpretationCode codeSystem="local" code= "*" /> <referenceRange> <observationRange> < text>37.0-47.0</text> </observationRange> </referenceRange> </observation> </component> <component> <observation moodCode="EVN" classCode="OBS"> <templateId root= "840.1.285533.01.28.22.4.2" /> <id nullFlavor="NA" /> < code codeSystem="local" code="PLT" displayName="PLATELET COUNT" /> < statusCode code="completed" /> <effectiveTime value="438161374346" /> <value unit="k/cumm" xsi:type="PQ" value="Note" /> < referenceRange> <observationRange> <text>150-400</text> </observationRange> </referenceRange> </observation > </component> </organizer> </entry> <entry> <organizer moodCode= "EVN" classCode="BATTERY"> <templateId root="840.1.144069.1022.4.1 " /> <id nullFlavor="NA" /> <code codeSystem="local" code="PLT" displayName="PLATELET COUNT" /> <statusCode code="completed" /> < component> <observation moodCode="EVN" classCode="OBS"> < templateId root="840.1.238185.01.28.22.4.2" /> <id nullFlavor="NA " /> <code codeSystem="local" code="PLT" displayName="PLATELET COUNT" / > <statusCode code="completed" /> <effectiveTime value= "426102443414" /> <value unit="k/cumm" xsi:type="PQ" value="225" /> <referenceRange> <observationRange> <text>150-400 </text> </observationRange> </referenceRange> </ observation> </component> </organizer> </entry> <entry> <organizer moodCode="EVN" classCode="BATTERY"> <templateId root= "16.840.1.074815.01.28.22.4.1" /> <id nullFlavor="NA" /> <code codeSystem="local" code="GLUMON" displayName="GLUCOSE (POC)" /> < statusCode code="completed" /> <component> <observation moodCode= "EVN" classCode="OBS"> <templateId root="216.840.1.771211.01.28.22.4.2 " /> <id nullFlavor="NA" /> <code codeSystem="local" code= "GLUMON" displayName="GLUCOSE (POC)" /> <statusCode code="completed" / > <effectiveTime value="303508582929" /> <value unit="mg/dL" xsi:type="PQ" value="97" /> <referenceRange> < observationRange> <text>70-99</text> </observationRange > </referenceRange> </observation> </component> </ organizer> </entry> <entry> <organizer moodCode="EVN" classCode="BATTERY"> <templateId root="16.840.1.546415.01.28.22.4.1" /> <id nullFlavor= "NA" /> <code codeSystem="local" code="GLUMON" displayName="GLUCOSE (POC)" /> <statusCode code="completed" /> <component> <observation moodCode="EVN" classCode="OBS"> <templateId root= "16.840.1.739188.1022.4.2" /> <id nullFlavor="NA" /> < code codeSystem="local" code="GLUMON" displayName="GLUCOSE (POC)" /> < statusCode code="completed" /> <effectiveTime value="002030027644" /> <value unit="mg/dL" xsi:type="PQ" value="101" /> < interpretationCode codeSystem="local" code="*" /> <referenceRange> <observationRange> <text>70-99</text> </ observationRange> </referenceRange> </observation> </ component> </organizer> </entry> <entry> <organizer moodCode="EVN" classCode="BATTERY"> <templateId root="05.27.840.1.815507.1022.4.1" /> <id nullFlavor="NA" /> <code codeSystem="local" code="GLUMON" displayName="GLUCOSE (POC)" /> <statusCode code="completed" /> < component> <observation moodCode="EVN" classCode="OBS"> < templateId root="05.27.840.1.034389.10.4.2" /> <id nullFlavor="NA " /> <code codeSystem="local" code="GLUMON" displayName="GLUCOSE (POC) " /> <statusCode code="completed" /> <effectiveTime value= "552674678681" /> <value unit="mg/dL" xsi:type="PQ" value="103" /> <interpretationCode codeSystem="local" code="*" /> < referenceRange> <observationRange> <text>70-99</text> </observationRange> </referenceRange> </observation> </component> </organizer> </entry> <entry> <organizer moodCode="EVN " classCode="BATTERY"> <templateId root="05.27.840.1.893439.10..22.4.1" / > <id nullFlavor="NA" /> <code codeSystem="local" code="GLUMON" displayName="GLUCOSE (POC)" /> <statusCode code="completed" /> < component> <observation moodCode="EVN" classCode="OBS"> < templateId root="840.1.431441.01.28.22.4.2" /> <id nullFlavor="NA " /> <code codeSystem="local" code="GLUMON" displayName="GLUCOSE (POC) " /> <statusCode code="completed" /> <effectiveTime value= "460291060962" /> <value unit="mg/dL" xsi:type="PQ" value="111" /> <interpretationCode codeSystem="local" code="*" /> < referenceRange> <observationRange> <text>70-99</text> </observationRange> </referenceRange> </observation> </component> </organizer> </entry> <entry> <organizer moodCode="EVN " classCode="BATTERY"> <templateId root="840.1.446227.22.4.1" / > <id nullFlavor="NA" /> <code codeSystem="local" code="PTTH" displayName="PTT HEPARIN PROTOCOLS" /> <statusCode code="completed" /> <component> <observation moodCode="EVN" classCode="OBS"> < templateId root="05.27.840.1.320594.10..22.4.2" /> <id nullFlavor="NA " /> <code codeSystem="local" code="PTT" displayName="PARTIAL THROMBOPLASTIN TIME" /> <statusCode code="completed" /> < effectiveTime value="965564189157" /> <value unit="sec" xsi:type="PQ" value="39" /> <referenceRange> <observationRange> <text>23-39</text> </observationRange> </referenceRange > </observation> </component> </organizer> </entry> <entry> <organizer moodCode="EVN" classCode="BATTERY"> <templateId root= "2.16.840.1.172715.10.20.22.4.1" /> <id nullFlavor="NA" /> <code codeSystem="local" code="CREATT" displayName="CREATININE" /> <statusCode code="completed" /> <component> <observation moodCode="EVN" classCode="OBS"> <templateId root="2.16.840.1.155602.10..22.4.2" /> <id nullFlavor="NA" /> <code codeSystem="local" code="eGFR" displayName="EST GFR (MDRD)" /> <statusCode code="completed" /> <effectiveTime value="702324401257" /> <value unit="mL/min" xsi:type ="PQ" value="> 60" /> <referenceRange> <observationRange > <text>> 59</text> </observationRange> </ referenceRange> </observation> </component> <component> <observation moodCode="EVN" classCode="OBS"> <templateId root= "216.840.1.239675.10.20.22.4.2" /> <id nullFlavor="NA" /> < code codeSystem="local" code="CREAT" displayName="CREATININE" /> < statusCode code="completed" /> <effectiveTime value="801192491143" /> <value unit="mg/dL" xsi:type="PQ" value="0.5" /> < interpretationCode codeSystem="local" code="*" /> <referenceRange> <observationRange> <text>0.6-1.0</text> </ observationRange> </referenceRange> </observation> </ component> </organizer> </entry> <entry> <organizer moodCode="EVN" classCode="BATTERY"> <templateId root="216.840.1.973019.10.20.22.4.1" /> <id nullFlavor="NA" /> <code codeSystem="local" code="GLUMON" displayName="GLUCOSE (POC)" /> <statusCode code="completed" /> < component> <observation moodCode="EVN" classCode="OBS"> < templateId root="16.840.1.801054.10.20.22.4.2" /> <id nullFlavor="NA " /> <code codeSystem="local" code="GLUMON" displayName="GLUCOSE (POC) " /> <statusCode code="completed" /> <effectiveTime value= "967470026316" /> <value unit="mg/dL" xsi:type="PQ" value="108" /> <interpretationCode codeSystem="local" code="*" /> < referenceRange> <observationRange> <text>70-99</text> </observationRange> </referenceRange> </observation> </component> </organizer> </entry> <entry> <organizer moodCode="EVN " classCode="BATTERY"> <templateId root="16.840.1.758424.10.20.22.4.1" / > <id nullFlavor="NA" /> <code codeSystem="local" code="GLUMON" displayName="GLUCOSE (POC)" /> <statusCode code="completed" /> < component> <observation moodCode="EVN" classCode="OBS"> < templateId root="2.16.840.1.108004.10..22.4.2" /> <id nullFlavor="NA " /> <code codeSystem="local" code="GLUMON" displayName="GLUCOSE (POC) " /> <statusCode code="completed" /> <effectiveTime value= "846212559785" /> <value unit="mg/dL" xsi:type="PQ" value="79" /> <referenceRange> <observationRange> <text>70-99</ text> </observationRange> </referenceRange> </ observation> </component> </organizer> </entry> <entry> <organizer moodCode="EVN" classCode="BATTERY"> <templateId root= "216.840.1.992066.10..22.4.1" /> <id nullFlavor="NA" /> <code codeSystem="local" code="GLUMON" displayName="GLUCOSE (POC)" /> < statusCode code="completed" /> <component> <observation moodCode= "EVN" classCode="OBS"> <templateId root="2.16.840.1.786122.10.20.22.4.2 " /> <id nullFlavor="NA" /> <code codeSystem="local" code= "GLUMON" displayName="GLUCOSE (POC)" /> <statusCode code="completed" / > <effectiveTime value="094390703583" /> <value unit="mg/dL" xsi:type="PQ" value="109" /> <interpretationCode codeSystem="local" code="*" /> <referenceRange> <observationRange> <text>70-99</text> </observationRange> </referenceRange> </observation> </component> </organizer> </entry> <entry> < organizer moodCode="EVN" classCode="BATTERY"> <templateId root= "840.1.514330.10..4.1" /> <id nullFlavor="NA" /> <code codeSystem="local" code="GLUMON" displayName="GLUCOSE (POC)" /> < statusCode code="completed" /> <component> <observation moodCode= "EVN" classCode="OBS"> <templateId root="840.1.611498.01.28.22.4.2 " /> <id nullFlavor="NA" /> <code codeSystem="local" code= "GLUMON" displayName="GLUCOSE (POC)" /> <statusCode code="completed" / > <effectiveTime value="252551348177" /> <value unit="mg/dL" xsi:type="PQ" value="86" /> <referenceRange> < observationRange> <text>70-99</text> </observationRange > </referenceRange> </observation> </component> </ organizer> </entry> <entry> <organizer moodCode="EVN" classCode="BATTERY"> <templateId root="840.1.283267.01.28.22.4.1" /> <id nullFlavor= "NA" /> <code codeSystem="local" code="GLUMON" displayName="GLUCOSE (POC)" /> <statusCode code="completed" /> <component> <observation moodCode="EVN" classCode="OBS"> <templateId root= "05.27.840.1.588373.01.28.22.4.2" /> <id nullFlavor="NA" /> < code codeSystem="local" code="GLUMON" displayName="GLUCOSE (POC)" /> < statusCode code="completed" /> <effectiveTime value="081490432864" /> <value unit="mg/dL" xsi:type="PQ" value="89" /> < referenceRange> <observationRange> <text>70-99</text> </observationRange> </referenceRange> </observation> </component> </organizer> </entry> <entry> <organizer moodCode="EVN " classCode="BATTERY"> <templateId root="216.840.1.403318.10..22.4.1" / > <id nullFlavor="NA" /> <code codeSystem="local" code="GLUMON" displayName="GLUCOSE (POC)" /> <statusCode code="completed" /> < component> <observation moodCode="EVN" classCode="OBS"> < templateId root="216.840.1.371587.10..22.4.2" /> <id nullFlavor="NA " /> <code codeSystem="local" code="GLUMON" displayName="GLUCOSE (POC) " /> <statusCode code="completed" /> <effectiveTime value= "129170132833" /> <value unit="mg/dL" xsi:type="PQ" value="104" /> <interpretationCode codeSystem="local" code="*" /> < referenceRange> <observationRange> <text>70-99</text> </observationRange> </referenceRange> </observation> </component> </organizer> </entry> <entry> <organizer moodCode="EVN " classCode="BATTERY"> <templateId root="216.840.1.514922.10..22.4.1" / > <id nullFlavor="NA" /> <code codeSystem="local" code="GLUMON" displayName="GLUCOSE (POC)" /> <statusCode code="completed" /> < component> <observation moodCode="EVN" classCode="OBS"> < templateId root="[id number]" /> <id nullFlavor="NA " /> <code codeSystem="local" code="GLUMON" displayName="GLUCOSE (POC) " /> <statusCode code="completed" /> <effectiveTime value= "[id number]" /> <value unit="mg/dL" xsi:type="PQ" value="95" /> <referenceRange> <observationRange> <text>70-99</ text> </observationRange> </referenceRange> </ observation> </component> </organizer> </entry> <entry> <organizer moodCode="EVN" classCode="BATTERY"> <templateId root= "05.27.840.1.005382.10..22.4.1" /> <id nullFlavor="NA" /> <code codeSystem="local" code="METAB" displayName="METABOLIC PANEL, BASIC" /> < statusCode code="completed" /> <component> <observation moodCode= "EVN" classCode="OBS"> <templateId root="16.840.1.062585.10..22.4.2 " /> <id nullFlavor="NA" /> <code codeSystem="local" code="K" displayName="POTASSIUM" /> <statusCode code="completed" /> < effectiveTime value="[id number]" /> <value unit="mmol/L" xsi:type="PQ " value="3.9" /> <referenceRange> <observationRange> <text>3.5-5.3</text> </observationRange> </ referenceRange> </observation> </component> <component> <observation moodCode="EVN" classCode="OBS"> <templateId root= "05.27.840.1.509412...22.4.2" /> <id nullFlavor="NA" /> < code codeSystem="local" code="eGFR" displayName="EST GFR (MDRD)" /> < statusCode code="completed" /> <effectiveTime value="" /> <value unit="mL/min" xsi:type="PQ" value="> 60" /> < referenceRange> <observationRange> <text>> 59</text> </observationRange> </referenceRange> </observation > </component> <component> <observation moodCode="EVN" classCode="OBS"> <templateId root="2.16.840.1.946514.01.28.22.4.2" /> <id nullFlavor="NA" /> <code codeSystem="local" code="GAP" displayName="ANION GAP" /> <statusCode code="completed" /> < effectiveTime value="" /> <value unit="mmol/L" xsi:type="PQ " value="11" /> <referenceRange> <observationRange> <text>5-15</text> </observationRange> </referenceRange > </observation> </component> <component> <observation moodCode="EVN" classCode="OBS"> <templateId root= "2.16.840.1.677001....4.2" /> <id nullFlavor="NA" /> < code codeSystem="local" code="eCrCl" displayName="EST CrCl (CG)" /> < statusCode code="completed" /> <effectiveTime value="" /> <value unit="mL/min" xsi:type="PQ" value="> 60" /> < referenceRange> <observationRange> <text>> 59</text> </observationRange> </referenceRange> </observation > </component> <component> <observation moodCode="EVN" classCode="OBS"> <templateId root="16.840.1.774800.10..22.4.2" /> <id nullFlavor="NA" /> <code codeSystem="local" code="GLU" displayName="GLUCOSE" /> <statusCode code="completed" /> < effectiveTime value="" /> <value unit="mg/dL" xsi:type="PQ " value="96" /> <referenceRange> <observationRange> <text>70-99</text> </observationRange> </ referenceRange> </observation> </component> <component> <observation moodCode="EVN" classCode="OBS"> <templateId root= "05.27.840.1.202529....4.2" /> <id nullFlavor="NA" /> < code codeSystem="local" code="CA" displayName="CALCIUM" /> <statusCode code="completed" /> <effectiveTime value="" /> < value unit="mg/dL" xsi:type="PQ" value="8.2" /> <interpretationCode codeSystem="local" code="*" /> <referenceRange> < observationRange> <text>8.5-10.1</text> </ observationRange> </referenceRange> </observation> </ component> <component> <observation moodCode="EVN" classCode="OBS"> <templateId root="05.27.840.1.605609.10.20.22.4.2" /> <id nullFlavor="NA" /> <code codeSystem="local" code="BUN" displayName= "BLOOD UREA NITROGEN" /> <statusCode code="completed" /> < effectiveTime value="" /> <value unit="mg/dL" xsi:type="PQ " value="5" /> <interpretationCode codeSystem="local" code="*" /> <referenceRange> <observationRange> <text>7-20</ text> </observationRange> </referenceRange> </ observation> </component> <component> <observation moodCode= "EVN" classCode="OBS"> <templateId root="216.840.1.817679.10...4.2 " /> <id nullFlavor="NA" /> <code codeSystem="local" code= "CREAT" displayName="CREATININE" /> <statusCode code="completed" /> <effectiveTime value="[id number]" /> <value unit="mg/dL" xsi: type="PQ" value="0.6" /> <referenceRange> <observationRange > <text>0.6-1.0</text> </observationRange> </ referenceRange> </observation> </component> <component> <observation moodCode="EVN" classCode="OBS"> <templateId root= "05.27.840.1.850990.01.28.22.4.2" /> <id nullFlavor="NA" /> < code codeSystem="local" code="NA" displayName="SODIUM" /> <statusCode code="completed" /> <effectiveTime value="" /> < value unit="mmol/L" xsi:type="PQ" value="139" /> <referenceRange> <observationRange> <text>135-148</text> </ observationRange> </referenceRange> </observation> </ component> <component> <observation moodCode="EVN" classCode="OBS"> <templateId root="05.27.840.1.939714.10...4.2" /> <id nullFlavor="NA" /> <code codeSystem="local" code="CL" displayName= "CHLORIDE" /> <statusCode code="completed" /> <effectiveTime value="" /> <value unit="mmol/L" xsi:type="PQ" value="105" /> <referenceRange> <observationRange> <text>98 -110</text> </observationRange> </referenceRange> </ observation> </component> <component> <observation moodCode= "EVN" classCode="OBS"> <templateId root="16.840.1.462428.10..4.2 " /> <id nullFlavor="NA" /> <code codeSystem="local" code="CO2 " displayName="CARBON DIOXIDE" /> <statusCode code="completed" /> <effectiveTime value="" /> <value unit="mmol/L" xsi: type="PQ" value="23" /> <referenceRange> <observationRange> <text>21-32</text> </observationRange> </ referenceRange> </observation> </component> </organizer> </entry > <entry> <organizer moodCode="EVN" classCode="BATTERY"> <templateId root="16.840.1.627455.10...4.1" /> <id nullFlavor="NA" /> <code codeSystem="local" code="CBC" displayName="CBC" /> <statusCode code= "completed" /> <component> <observation moodCode="EVN" classCode= "OBS"> <templateId root="16.840.1.421457...4.2" /> < id nullFlavor="NA" /> <code codeSystem="local" code="CBCCOM" displayName="COMMENT" /> <statusCode code="completed" /> < effectiveTime value="" /> <value unit="" xsi:type="PQ" value="REVIEWED" /> <referenceRange> <observationRange> <text /> </observationRange> </referenceRange> </observation> </component> <component> <observation moodCode="EVN" classCode="OBS"> <templateId root= "216.840.1.601537.10.20.22.4.2" /> <id nullFlavor="NA" /> < code codeSystem="local" code="MCH" displayName="MEAN CELL HGB" /> < statusCode code="completed" /> <effectiveTime value="" /> <value unit="pg" xsi:type="PQ" value="25.0" /> < interpretationCode codeSystem="local" code="*" /> <referenceRange> <observationRange> <text>27.0-33.0</text> </ observationRange> </referenceRange> </observation> </ component> <component> <observation moodCode="EVN" classCode="OBS"> <templateId root="16.840.1.156607.10.22.4.2" /> <id nullFlavor="NA" /> <code codeSystem="local" code="MCHC" displayName= "MEAN CELL HGB CONCENTRATION" /> <statusCode code="completed" /> <effectiveTime value="" /> <value unit="g/dL" xsi:type= "PQ" value="29.9" /> <interpretationCode codeSystem="local" code="*" / > <referenceRange> <observationRange> <text> 32.0-37.0</text> </observationRange> </referenceRange> </observation> </component> <component> <observation moodCode="EVN" classCode="OBS"> <templateId root= "216.840.1.049283.10.2022.4.2" /> <id nullFlavor="NA" /> < code codeSystem="local" code="MCV" displayName="MEAN CELL VOLUME" /> < statusCode code="completed" /> <effectiveTime value="" /> <value unit="fl" xsi:type="PQ" value="83.6" /> <referenceRange > <observationRange> <text>80.0-100.0</text> </observationRange> </referenceRange> </observation> </ component> <component> <observation moodCode="EVN" classCode="OBS"> <templateId root="2.16.840.1.093558.10..22.4.2" /> <id nullFlavor="NA" /> <code codeSystem="local" code="RBC" displayName=" RED BLOOD CELL" /> <statusCode code="completed" /> < effectiveTime value="" /> <value unit="m/cumm" xsi:type="PQ " value="3.04" /> <interpretationCode codeSystem="local" code="*" /> <referenceRange> <observationRange> <text>4.00- 6.00</text> </observationRange> </referenceRange> </ observation> </component> <component> <observation moodCode= "EVN" classCode="OBS"> <templateId root="216.840.1.117518.10.20.22.4.2 " /> <id nullFlavor="NA" /> <code codeSystem="local" code="RDW " displayName="RED CELL DISTRIBUTION WIDTH" /> <statusCode code= "completed" /> <effectiveTime value="" /> <value unit="%" xsi:type="PQ" value="16.2" /> <interpretationCode codeSystem="local" code="*" /> <referenceRange> < observationRange> <text>11.0-15.6</text> </ observationRange> </referenceRange> </observation> </ component> <component> <observation moodCode="EVN" classCode="OBS"> <templateId root="05.27.840.1.576878.10.2022.4.2" /> <id nullFlavor="NA" /> <code codeSystem="local" code="WBC" displayName= "WHITE BLOOD CELL" /> <statusCode code="completed" /> < effectiveTime value="" /> <value unit="k/cumm" xsi:type="PQ " value="4.7" /> <interpretationCode codeSystem="local" code="*" /> <referenceRange> <observationRange> <text>5.0- 10.0</text> </observationRange> </referenceRange> </ observation> </component> <component> <observation moodCode= "EVN" classCode="OBS"> <templateId root="05.27.840.1.991941.1022.4.2 " /> <id nullFlavor="NA" /> <code codeSystem="local" code= "HGBT" displayName="HEMOGLOBIN" /> <statusCode code="completed" /> <effectiveTime value="" /> <value unit="gm/dL" xsi: type="PQ" value="7.6" /> <interpretationCode codeSystem="local" code="* " /> <referenceRange> <observationRange> <text> 12.0-16.0</text> </observationRange> </referenceRange> </observation> </component> <component> <observation moodCode="EVN" classCode="OBS"> <templateId root= "05.27.840.1.233727.10.2022.4.2" /> <id nullFlavor="NA" /> < code codeSystem="local" code="HCTT" displayName="HEMATOCRIT" /> < statusCode code="completed" /> <effectiveTime value="" /> <value unit="%" xsi:type="PQ" value="25.4" /> < interpretationCode codeSystem="local" code="*" /> <referenceRange> <observationRange> <text>37.0-47.0</text> </ observationRange> </referenceRange> </observation> </ component> <component> <observation moodCode="EVN" classCode="OBS"> <templateId root="16.840.1.979029.01.28.224.2" /> <id nullFlavor="NA" /> <code codeSystem="local" code="PLT" displayName= "PLATELET COUNT" /> <statusCode code="completed" /> < effectiveTime value="" /> <value unit="k/cumm" xsi:type="PQ " value="Note" /> <referenceRange> <observationRange> <text>150-400</text> </observationRange> </ referenceRange> </observation> </component> </organizer> </entry > <entry> <organizer moodCode="EVN" classCode="BATTERY"> <templateId root="16.840.1.903182.01.28.22.4.1" /> <id nullFlavor="NA" /> <code codeSystem="local" code="UA" displayName="URINALYSIS, ROUTINE" /> < statusCode code="completed" /> <component> <observation moodCode= "EVN" classCode="OBS"> <templateId root="16.840.1.159334.01.28.22.4.2 " /> <id nullFlavor="NA" /> <code codeSystem="local" code= "LEUESU" displayName="UA LEUKOCYTE ESTERASE DIPSTICK" /> <statusCode code="completed" /> <effectiveTime value="" /> < value unit="" xsi:type="PQ" value="NEGATIVE" /> <referenceRange> <observationRange> <text>NEGATIVE</text> </ observationRange> </referenceRange> </observation> </ component> <component> <observation moodCode="EVN" classCode="OBS"> <templateId root="05.27.840.1.853485.01.28.22.4.2" /> <id nullFlavor="NA" /> <code codeSystem="local" code="NITRIU" displayName= "UA NITRITE DIPSTICK" /> <statusCode code="completed" /> < effectiveTime value="" /> <value unit="" xsi:type="PQ" value="NEGATIVE" /> <referenceRange> <observationRange> <text>NEGATIVE</text> </observationRange> </ referenceRange> </observation> </component> <component> <observation moodCode="EVN" classCode="OBS"> <templateId root= "05.27.840.1.968904.01.28.22.4.2" /> <id nullFlavor="NA" /> < code codeSystem="local" code="PROTEIU" displayName="UA PROTEIN DIPSTICK" /> <statusCode code="completed" /> <effectiveTime value= "" /> <value unit="" xsi:type="PQ" value="NEGATIVE" /> <referenceRange> <observationRange> <text>NEGATIVE </text> </observationRange> </referenceRange> </ observation> </component> <component> <observation moodCode= "EVN" classCode="OBS"> <templateId root="05.27.840.1.301398.22.4.2 " /> <id nullFlavor="NA" /> <code codeSystem="local" code= "DGLUU" displayName="UA GLUCOSE DIPSTICK" /> <statusCode code= "completed" /> <effectiveTime value="" /> <value unit="" xsi:type="PQ" value="NEGATIVE" /> <referenceRange> < observationRange> <text>NEGATIVE</text> </ observationRange> </referenceRange> </observation> </ component> <component> <observation moodCode="EVN" classCode="OBS"> <templateId root="216.840.1.338754.10..22.4.2" /> <id nullFlavor="NA" /> <code codeSystem="local" code="KETONU" displayName= "UA KETONE DIPSTICK" /> <statusCode code="completed" /> < effectiveTime value="" /> <value unit="" xsi:type="PQ" value="2+" /> <interpretationCode codeSystem="local" code="*" /> <referenceRange> <observationRange> <text>NEGATIVE</ text> </observationRange> </referenceRange> </ observation> </component> <component> <observation moodCode= "EVN" classCode="OBS"> <templateId root="216.840.1.177114.10..22.4.2 " /> <id nullFlavor="NA" /> <code codeSystem="local" code= "UROBILU" displayName="UA UROBILINOGEN DIPSTICK" /> <statusCode code= "completed" /> <effectiveTime value="" /> <value unit="" xsi:type="PQ" value="2+" /> <interpretationCode codeSystem= "local" code="*" /> <referenceRange> <observationRange> <text>NORMAL</text> </observationRange> </ referenceRange> </observation> </component> <component> <observation moodCode="EVN" classCode="OBS"> <templateId root= "216.840.1.942270.10...4.2" /> <id nullFlavor="NA" /> < code codeSystem="local" code="BILU" displayName="UA BILIRUBIN DIPSTICK" /> <statusCode code="completed" /> <effectiveTime value=" " /> <value unit="" xsi:type="PQ" value="NEGATIVE" /> < referenceRange> <observationRange> <text>NEGATIVE</text > </observationRange> </referenceRange> </observation > </component> <component> <observation moodCode="EVN" classCode="OBS"> <templateId root="216.840.1.479244.10..4.2" /> <id nullFlavor="NA" /> <code codeSystem="local" code="MAKENZIE" displayName="UA BLOOD DIPSTICK" /> <statusCode code="completed" /> <effectiveTime value="" /> <value unit="" xsi:type= "PQ" value="NEGATIVE" /> <referenceRange> <observationRange > <text>NEGATIVE</text> </observationRange> </ referenceRange> </observation> </component> <component> <observation moodCode="EVN" classCode="OBS"> <templateId root= "16.840.1.965377.10...4.2" /> <id nullFlavor="NA" /> < code codeSystem="local" code="SPGRU" displayName="UA SPECIFIC GRAVITY" /> <statusCode code="completed" /> <effectiveTime value=" " /> <value unit="" xsi:type="PQ" value="1.021" /> < referenceRange> <observationRange> <text>1.015-1.025</ text> </observationRange> </referenceRange> </ observation> </component> <component> <observation moodCode= "EVN" classCode="OBS"> <templateId root="216.840.1.458924.10..22.4.2 " /> <id nullFlavor="NA" /> <code codeSystem="local" code="SEBLE " displayName="UR PH" /> <statusCode code="completed" /> < effectiveTime value="283480389626" /> <value unit="" xsi:type="PQ" value="6.0" /> <referenceRange> <observationRange> <text>5.0-7.0</text> </observationRange> </ referenceRange> </observation> </component> </organizer> </entry > <entry> <organizer moodCode="EVN" classCode="BATTERY"> <templateId root="216.840.1.166462.10..22.4.1" /> <id nullFlavor="NA" /> <code codeSystem="local" code="GLUMON" displayName="GLUCOSE (POC)" /> < statusCode code="completed" /> <component> <observation moodCode= "EVN" classCode="OBS"> <templateId root="216.840.1.362029.10..22.4.2 " /> <id nullFlavor="NA" /> <code codeSystem="local" code= "GLUMON" displayName="GLUCOSE (POC)" /> <statusCode code="completed" / > <effectiveTime value="884300969844" /> <value unit="mg/dL" xsi:type="PQ" value="90" /> <referenceRange> < observationRange> <text>70-99</text> </observationRange > </referenceRange> </observation> </component> </ organizer> </entry> <entry> <organizer moodCode="EVN" classCode="BATTERY"> <templateId root="840.1.472230.10..4.1" /> <id nullFlavor= "NA" /> <code codeSystem="local" code="GLUMON" displayName="GLUCOSE (POC)" /> <statusCode code="completed" /> <component> <observation moodCode="EVN" classCode="OBS"> <templateId root= "840.1.270726.01.28.22.4.2" /> <id nullFlavor="NA" /> < code codeSystem="local" code="GLUMON" displayName="GLUCOSE (POC)" /> < statusCode code="completed" /> <effectiveTime value="109510581465" /> <value unit="mg/dL" xsi:type="PQ" value="109" /> < interpretationCode codeSystem="local" code="*" /> <referenceRange> <observationRange> <text>70-99</text> </ observationRange> </referenceRange> </observation> </ component> </organizer> </entry> <entry> <organizer moodCode="EVN" classCode="BATTERY"> <templateId root="840.1.637389.01.28.22.4.1" /> <id nullFlavor="NA" /> <code codeSystem="local" code="GLUMON" displayName="GLUCOSE (POC)" /> <statusCode code="completed" /> < component> <observation moodCode="EVN" classCode="OBS"> < templateId root="840.1.585678.01.28.22.4.2" /> <id nullFlavor="NA " /> <code codeSystem="local" code="GLUMON" displayName="GLUCOSE (POC) " /> <statusCode code="completed" /> <effectiveTime value= "170997699480" /> <value unit="mg/dL" xsi:type="PQ" value="89" /> <referenceRange> <observationRange> <text>70-99</ text> </observationRange> </referenceRange> </ observation> </component> </organizer> </entry> <entry> <organizer moodCode="EVN" classCode="BATTERY"> <templateId root= "216.840.1.653572.10..22.4.1" /> <id nullFlavor="NA" /> <code codeSystem="local" code="GLUMON" displayName="GLUCOSE (POC)" /> < statusCode code="completed" /> <component> <observation moodCode= "EVN" classCode="OBS"> <templateId root="216.840.1.572116.10..22.4.2 " /> <id nullFlavor="NA" /> <code codeSystem="local" code= "GLUMON" displayName="GLUCOSE (POC)" /> <statusCode code="completed" / > <effectiveTime value="194957444101" /> <value unit="mg/dL" xsi:type="PQ" value="102" /> <interpretationCode codeSystem="local" code="*" /> <referenceRange> <observationRange> <text>70-99</text> </observationRange> </referenceRange> </observation> </component> </organizer> </entry> <entry> < organizer moodCode="EVN" classCode="BATTERY"> <templateId root= "2.16.840.1.010558.10..22.4.1" /> <id nullFlavor="NA" /> <code codeSystem="local" code="GLUMON" displayName="GLUCOSE (POC)" /> < statusCode code="completed" /> <component> <observation moodCode= "EVN" classCode="OBS"> <templateId root="2.16.840.1.602306.10..22.4.2 " /> <id nullFlavor="NA" /> <code codeSystem="local" code= "GLUMON" displayName="GLUCOSE (POC)" /> <statusCode code="completed" / > <effectiveTime value="413162531341" /> <value unit="mg/dL" xsi:type="PQ" value="100" /> <interpretationCode codeSystem="local" code="*" /> <referenceRange> <observationRange> <text>70-99</text> </observationRange> </referenceRange> </observation> </component> </organizer> </entry> <entry> < organizer moodCode="EVN" classCode="BATTERY"> <templateId root= "216.840.1.144579.10..22.4.1" /> <id nullFlavor="NA" /> <code codeSystem="local" code="GLUMON" displayName="GLUCOSE (POC)" /> < statusCode code="completed" /> <component> <observation moodCode= "EVN" classCode="OBS"> <templateId root="2.16.840.1.618642.10.20.22.4.2 " /> <id nullFlavor="NA" /> <code codeSystem="local" code= "GLUMON" displayName="GLUCOSE (POC)" /> <statusCode code="completed" / > <effectiveTime value="344426770562" /> <value unit="mg/dL" xsi:type="PQ" value="104" /> <interpretationCode codeSystem="local" code="*" /> <referenceRange> <observationRange> <text>70-99</text> </observationRange> </referenceRange> </observation> </component> </organizer> </entry> <entry> < organizer moodCode="EVN" classCode="BATTERY"> <templateId root= "840.1.324970.10..4.1" /> <id nullFlavor="NA" /> <code codeSystem="local" code="GLUMON" displayName="GLUCOSE (POC)" /> < statusCode code="completed" /> <component> <observation moodCode= "EVN" classCode="OBS"> <templateId root="840.1.569879.01.28.22.4.2 " /> <id nullFlavor="NA" /> <code codeSystem="local" code= "GLUMON" displayName="GLUCOSE (POC)" /> <statusCode code="completed" / > <effectiveTime value="650287854045" /> <value unit="mg/dL" xsi:type="PQ" value="102" /> <interpretationCode codeSystem="local" code="*" /> <referenceRange> <observationRange> <text>70-99</text> </observationRange> </referenceRange> </observation> </component> </organizer> </entry> <entry> < organizer moodCode="EVN" classCode="BATTERY"> <templateId root= "840.1.994382.01.28.22.4.1" /> <id nullFlavor="NA" /> <code codeSystem="local" code="GLUMON" displayName="GLUCOSE (POC)" /> < statusCode code="completed" /> <component> <observation moodCode= "EVN" classCode="OBS"> <templateId root="05.27.840.1.187458.10.4.2 " /> <id nullFlavor="NA" /> <code codeSystem="local" code= "GLUMON" displayName="GLUCOSE (POC)" /> <statusCode code="completed" / > <effectiveTime value="586840327014" /> <value unit="mg/dL" xsi:type="PQ" value="102" /> <interpretationCode codeSystem="local" code="*" /> <referenceRange> <observationRange> <text>70-99</text> </observationRange> </referenceRange> </observation> </component> </organizer> </entry> <entry> < organizer moodCode="EVN" classCode="BATTERY"> <templateId root= "216.840.1.172129.10...4.1" /> <id nullFlavor="NA" /> <code codeSystem="local" code="METAB" displayName="METABOLIC PANEL, BASIC" /> < statusCode code="completed" /> <component> <observation moodCode= "EVN" classCode="OBS"> <templateId root="16.840.1.051270.10...4.2 " /> <id nullFlavor="NA" /> <code codeSystem="local" code="K" displayName="POTASSIUM" /> <statusCode code="completed" /> < effectiveTime value="678713020596" /> <value unit="mmol/L" xsi:type="PQ " value="4.0" /> <referenceRange> <observationRange> <text>3.5-5.3</text> </observationRange> </ referenceRange> </observation> </component> <component> <observation moodCode="EVN" classCode="OBS"> <templateId root= "16.840.1.602774.10..4.2" /> <id nullFlavor="NA" /> < code codeSystem="local" code="eGFR" displayName="EST GFR (MDRD)" /> < statusCode code="completed" /> <effectiveTime value="" /> <value unit="mL/min" xsi:type="PQ" value="> 60" /> < referenceRange> <observationRange> <text>> 59</text> </observationRange> </referenceRange> </observation > </component> <component> <observation moodCode="EVN" classCode="OBS"> <templateId root="216.840.1.006326.22.4.2" /> <id nullFlavor="NA" /> <code codeSystem="local" code="GAP" displayName="ANION GAP" /> <statusCode code="completed" /> < effectiveTime value="" /> <value unit="mmol/L" xsi:type="PQ " value="6" /> <referenceRange> <observationRange> <text>5-15</text> </observationRange> </referenceRange > </observation> </component> <component> <observation moodCode="EVN" classCode="OBS"> <templateId root= "05.27.840.1.079792.01.28.22.4.2" /> <id nullFlavor="NA" /> < code codeSystem="local" code="eCrCl" displayName="EST CrCl (CG)" /> < statusCode code="completed" /> <effectiveTime value="" /> <value unit="mL/min" xsi:type="PQ" value="> 60" /> < referenceRange> <observationRange> <text>> 59</text> </observationRange> </referenceRange> </observation > </component> <component> <observation moodCode="EVN" classCode="OBS"> <templateId root="216.840.1.476109...22.4.2" /> <id nullFlavor="NA" /> <code codeSystem="local" code="GLU" displayName="GLUCOSE" /> <statusCode code="completed" /> < effectiveTime value="" /> <value unit="mg/dL" xsi:type="PQ " value="96" /> <referenceRange> <observationRange> <text>70-99</text> </observationRange> </ referenceRange> </observation> </component> <component> <observation moodCode="EVN" classCode="OBS"> <templateId root= "2.16.840.1.845381.10.20.22.4.2" /> <id nullFlavor="NA" /> < code codeSystem="local" code="CA" displayName="CALCIUM" /> <statusCode code="completed" /> <effectiveTime value="702247415946" /> < value unit="mg/dL" xsi:type="PQ" value="8.1" /> <interpretationCode codeSystem="local" code="*" /> <referenceRange> < observationRange> <text>8.5-10.1</text> </ observationRange> </referenceRange> </observation> </ component> <component> <observation moodCode="EVN" classCode="OBS"> <templateId root="2.16.840.1.505855.10..22.4.2" /> <id nullFlavor="NA" /> <code codeSystem="local" code="BUN" displayName= "BLOOD UREA NITROGEN" /> <statusCode code="completed" /> < effectiveTime value="" /> <value unit="mg/dL" xsi:type="PQ " value="4" /> <interpretationCode codeSystem="local" code="*" /> <referenceRange> <observationRange> <text>7-20</ text> </observationRange> </referenceRange> </ observation> </component> <component> <observation moodCode= "EVN" classCode="OBS"> <templateId root="2.16.840.1.330544.10..4.2 " /> <id nullFlavor="NA" /> <code codeSystem="local" code= "CREAT" displayName="CREATININE" /> <statusCode code="completed" /> <effectiveTime value="" /> <value unit="mg/dL" xsi: type="PQ" value="0.5" /> <interpretationCode codeSystem="local" code="* " /> <referenceRange> <observationRange> <text> 0.6-1.0</text> </observationRange> </referenceRange> </observation> </component> <component> <observation moodCode= "EVN" classCode="OBS"> <templateId root="216.840.1.968358.01.28.22.4.2 " /> <id nullFlavor="NA" /> <code codeSystem="local" code="NA " displayName="SODIUM" /> <statusCode code="completed" /> < effectiveTime value="" /> <value unit="mmol/L" xsi:type="PQ " value="138" /> <referenceRange> <observationRange> <text>135-148</text> </observationRange> </ referenceRange> </observation> </component> <component> <observation moodCode="EVN" classCode="OBS"> <templateId root= "216.840.1.658666.10..4.2" /> <id nullFlavor="NA" /> < code codeSystem="local" code="CL" displayName="CHLORIDE" /> < statusCode code="completed" /> <effectiveTime value="" /> <value unit="mmol/L" xsi:type="PQ" value="107" /> < referenceRange> <observationRange> <text>98-110</text> </observationRange> </referenceRange> </observation> </component> <component> <observation moodCode="EVN" classCode ="OBS"> <templateId root="05.27.840.1.917654.10.20.22.4.2" /> < id nullFlavor="NA" /> <code codeSystem="local" code="CO2" displayName= "CARBON DIOXIDE" /> <statusCode code="completed" /> < effectiveTime value="" /> <value unit="mmol/L" xsi:type="PQ " value="25" /> <referenceRange> <observationRange> <text>21-32</text> </observationRange> </ referenceRange> </observation> </component> </organizer> </entry > <entry> <organizer moodCode="EVN" classCode="BATTERY"> <templateId root="840.1.678581.10..4.1" /> <id nullFlavor="NA" /> <code codeSystem="local" code="CBC" displayName="CBC" /> <statusCode code= "completed" /> <component> <observation moodCode="EVN" classCode= "OBS"> <templateId root="05.27.840.1.606215.1022.4.2" /> < id nullFlavor="NA" /> <code codeSystem="local" code="MCH" displayName= "MEAN CELL HGB" /> <statusCode code="completed" /> < effectiveTime value="" /> <value unit="pg" xsi:type="PQ" value="25.4" /> <interpretationCode codeSystem="local" code="*" /> <referenceRange> <observationRange> <text>27.0- 33.0</text> </observationRange> </referenceRange> </ observation> </component> <component> <observation moodCode= "EVN" classCode="OBS"> <templateId root="05.27.840.1.780423.10.20.22.4.2 " /> <id nullFlavor="NA" /> <code codeSystem="local" code= "MCHC" displayName="MEAN CELL HGB CONCENTRATION" /> <statusCode code= "completed" /> <effectiveTime value="[id number]" /> <value unit="g/dL" xsi:type="PQ" value="30.0" /> <interpretationCode codeSystem="local" code="*" /> <referenceRange> < observationRange> <text>32.0-37.0</text> </ observationRange> </referenceRange> </observation> </ component> <component> <observation moodCode="EVN" classCode="OBS"> <templateId root="840.1.493248.10..4.2" /> <id nullFlavor="NA" /> <code codeSystem="local" code="MCV" displayName= "MEAN CELL VOLUME" /> <statusCode code="completed" /> < effectiveTime value="975213430835" /> <value unit="fl" xsi:type="PQ" value="84.6" /> <referenceRange> <observationRange> <text>80.0-100.0</text> </observationRange> </ referenceRange> </observation> </component> <component> <observation moodCode="EVN" classCode="OBS"> <templateId root= "05.27.840.1.494967.10.20.22.4.2" /> <id nullFlavor="NA" /> < code codeSystem="local" code="RBC" displayName="RED BLOOD CELL" /> < statusCode code="completed" /> <effectiveTime value="" /> <value unit="m/cumm" xsi:type="PQ" value="2.72" /> < interpretationCode codeSystem="local" code="*" /> <referenceRange> <observationRange> <text>4.00-6.00</text> </ observationRange> </referenceRange> </observation> </ component> <component> <observation moodCode="EVN" classCode="OBS"> <templateId root="216.840.1.133325.10..22.4.2" /> <id nullFlavor="NA" /> <code codeSystem="local" code="RDW" displayName=" RED CELL DISTRIBUTION WIDTH" /> <statusCode code="completed" /> <effectiveTime value="" /> <value unit="%" xsi:type= "PQ" value="16.4" /> <interpretationCode codeSystem="local" code="*" / > <referenceRange> <observationRange> <text> 11.0-15.6</text> </observationRange> </referenceRange> </observation> </component> <component> <observation moodCode="EVN" classCode="OBS"> <templateId root= "16.840.1.454290.10..22.4.2" /> <id nullFlavor="NA" /> < code codeSystem="local" code="WBC" displayName="WHITE BLOOD CELL" /> < statusCode code="completed" /> <effectiveTime value="" /> <value unit="k/cumm" xsi:type="PQ" value="3.9" /> < interpretationCode codeSystem="local" code="*" /> <referenceRange> <observationRange> <text>5.0-10.0</text> </ observationRange> </referenceRange> </observation> </ component> <component> <observation moodCode="EVN" classCode="OBS"> <templateId root="05.27.840.1.963643.10..4.2" /> <id nullFlavor="NA" /> <code codeSystem="local" code="HGBT" displayName= "HEMOGLOBIN" /> <statusCode code="completed" /> < effectiveTime value="882496810616" /> <value unit="gm/dL" xsi:type="PQ " value="6.9" /> <interpretationCode codeSystem="local" code="*" /> <referenceRange> <observationRange> <text>12.0- 16.0</text> </observationRange> </referenceRange> </ observation> </component> <component> <observation moodCode= "EVN" classCode="OBS"> <templateId root="05.27.840.1.961700.01.28.22.4.2 " /> <id nullFlavor="NA" /> <code codeSystem="local" code= "HCTT" displayName="HEMATOCRIT" /> <statusCode code="completed" /> <effectiveTime value="249263207582" /> <value unit="%" xsi: type="PQ" value="23.0" /> <interpretationCode codeSystem="local" code= "*" /> <referenceRange> <observationRange> < text>37.0-47.0</text> </observationRange> </referenceRange> </observation> </component> <component> <observation moodCode="EVN" classCode="OBS"> <templateId root= "05.27.840.1.499403.10.2022.4.2" /> <id nullFlavor="NA" /> < code codeSystem="local" code="PLT" displayName="PLATELET COUNT" /> < statusCode code="completed" /> <effectiveTime value="077286077652" /> <value unit="k/cumm" xsi:type="PQ" value="349" /> < referenceRange> <observationRange> <text>150-400</text> </observationRange> </referenceRange> </observation > </component> </organizer> </entry> <entry> <organizer moodCode= "EVN" classCode="BATTERY"> <templateId root="2.16.840.1.000458.10.20.22.4.1 " /> <id nullFlavor="NA" /> <code codeSystem="local" code="GLUMON" displayName="GLUCOSE (POC)" /> <statusCode code="completed" /> < component> <observation moodCode="EVN" classCode="OBS"> < templateId root="2.16.840.1.745190.10..22.4.2" /> <id nullFlavor="NA " /> <code codeSystem="local" code="GLUMON" displayName="GLUCOSE (POC) " /> <statusCode code="completed" /> <effectiveTime value= "841843528759" /> <value unit="mg/dL" xsi:type="PQ" value="97" /> <referenceRange> <observationRange> <text>70-99</ text> </observationRange> </referenceRange> </ observation> </component> </organizer> </entry> <entry> <organizer moodCode="EVN" classCode="BATTERY"> <templateId root= "2.16.840.1.116723.10.20.22.4.1" /> <id nullFlavor="NA" /> <code codeSystem="local" code="GLUMON" displayName="GLUCOSE (POC)" /> < statusCode code="completed" /> <component> <observation moodCode= "EVN" classCode="OBS"> <templateId root="216.840.1.622883.10.20.22.4.2 " /> <id nullFlavor="NA" /> <code codeSystem="local" code= "GLUMON" displayName="GLUCOSE (POC)" /> <statusCode code="completed" / > <effectiveTime value="743525084826" /> <value unit="mg/dL" xsi:type="PQ" value="106" /> <interpretationCode codeSystem="local" code="*" /> <referenceRange> <observationRange> <text>70-99</text> </observationRange> </referenceRange> </observation> </component> </organizer> </entry> <entry> < organizer moodCode="EVN" classCode="BATTERY"> <templateId root= "216.840.1.255219.10..22.4.1" /> <id nullFlavor="NA" /> <code codeSystem="local" code="ADRIAN" displayName="FERRITIN" /> <statusCode code= "completed" /> <component> <observation moodCode="EVN" classCode= "OBS"> <templateId root="216.840.1.228883.10.20.22.4.2" /> < id nullFlavor="NA" /> <code codeSystem="local" code="ADRIAN" displayName= "FERRITIN" /> <statusCode code="completed" /> <effectiveTime value="929391089381" /> <value unit="ng/mL" xsi:type="PQ" value="124" / > <referenceRange> <observationRange> <text>8- 252</text> </observationRange> </referenceRange> </ observation> </component> </organizer> </entry> <entry> <organizer moodCode="EVN" classCode="BATTERY"> <templateId root= "840.1.300869.10..22.4.1" /> <id nullFlavor="NA" /> <code codeSystem="local" code="GLUMON" displayName="GLUCOSE (POC)" /> < statusCode code="completed" /> <component> <observation moodCode= "EVN" classCode="OBS"> <templateId root="840.1.111315.01.28.22.4.2 " /> <id nullFlavor="NA" /> <code codeSystem="local" code= "GLUMON" displayName="GLUCOSE (POC)" /> <statusCode code="completed" / > <effectiveTime value="048121940704" /> <value unit="mg/dL" xsi:type="PQ" value="93" /> <referenceRange> < observationRange> <text>70-99</text> </observationRange > </referenceRange> </observation> </component> </ organizer> </entry> <entry> <organizer moodCode="EVN" classCode="BATTERY"> <templateId root="05.27.840.1.200989.01.28.22.4.1" /> <id nullFlavor= "NA" /> <code codeSystem="local" code="GLUMON" displayName="GLUCOSE (POC)" /> <statusCode code="completed" /> <component> <observation moodCode="EVN" classCode="OBS"> <templateId root= "05.27.840.1.270759.10..22.4.2" /> <id nullFlavor="NA" /> < code codeSystem="local" code="GLUMON" displayName="GLUCOSE (POC)" /> < statusCode code="completed" /> <effectiveTime value="487721480356" /> <value unit="mg/dL" xsi:type="PQ" value="105" /> < interpretationCode codeSystem="local" code="*" /> <referenceRange> <observationRange> <text>70-99</text> </ observationRange> </referenceRange> </observation> </ component> </organizer> </entry> <entry> <organizer moodCode="EVN" classCode="BATTERY"> <templateId root="05.27.840.1.169726.10..4.1" /> <id nullFlavor="NA" /> <code codeSystem="local" code="CBC" displayName ="CBC" /> <statusCode code="completed" /> <component> < observation moodCode="EVN" classCode="OBS"> <templateId root= "05.27.840.1.212186...4.2" /> <id nullFlavor="NA" /> < code codeSystem="local" code="MCH" displayName="MEAN CELL HGB" /> < statusCode code="completed" /> <effectiveTime value="" /> <value unit="pg" xsi:type="PQ" value="25.1" /> < interpretationCode codeSystem="local" code="*" /> <referenceRange> <observationRange> <text>27.0-33.0</text> </ observationRange> </referenceRange> </observation> </ component> <component> <observation moodCode="EVN" classCode="OBS"> <templateId root="840.1.293132.10.4.2" /> <id nullFlavor="NA" /> <code codeSystem="local" code="MCHC" displayName= "MEAN CELL HGB CONCENTRATION" /> <statusCode code="completed" /> <effectiveTime value="" /> <value unit="g/dL" xsi:type= "PQ" value="30.4" /> <interpretationCode codeSystem="local" code="*" / > <referenceRange> <observationRange> <text> 32.0-37.0</text> </observationRange> </referenceRange> </observation> </component> <component> <observation moodCode="EVN" classCode="OBS"> <templateId root= "216.840.1.058686.10..22.4.2" /> <id nullFlavor="NA" /> < code codeSystem="local" code="MCV" displayName="MEAN CELL VOLUME" /> < statusCode code="completed" /> <effectiveTime value="" /> <value unit="fl" xsi:type="PQ" value="82.6" /> <referenceRange > <observationRange> <text>80.0-100.0</text> </observationRange> </referenceRange> </observation> </ component> <component> <observation moodCode="EVN" classCode="OBS"> <templateId root="16.840.1.050469...4.2" /> <id nullFlavor="NA" /> <code codeSystem="local" code="RBC" displayName=" RED BLOOD CELL" /> <statusCode code="completed" /> < effectiveTime value="" /> <value unit="m/cumm" xsi:type="PQ " value="3.11" /> <interpretationCode codeSystem="local" code="*" /> <referenceRange> <observationRange> <text>4.00- 6.00</text> </observationRange> </referenceRange> </ observation> </component> <component> <observation moodCode= "EVN" classCode="OBS"> <templateId root="16.840.1.282585.10..22.4.2 " /> <id nullFlavor="NA" /> <code codeSystem="local" code="RDW " displayName="RED CELL DISTRIBUTION WIDTH" /> <statusCode code= "completed" /> <effectiveTime value="" /> <value unit="%" xsi:type="PQ" value="15.9" /> <interpretationCode codeSystem="local" code="*" /> <referenceRange> < observationRange> <text>11.0-15.6</text> </ observationRange> </referenceRange> </observation> </ component> <component> <observation moodCode="EVN" classCode="OBS"> <templateId root="2.16.840.1.591404.01.28.22.4.2" /> <id nullFlavor="NA" /> <code codeSystem="local" code="WBC" displayName= "WHITE BLOOD CELL" /> <statusCode code="completed" /> < effectiveTime value="" /> <value unit="k/cumm" xsi:type="PQ " value="5.3" /> <referenceRange> <observationRange> <text>5.0-10.0</text> </observationRange> </ referenceRange> </observation> </component> <component> <observation moodCode="EVN" classCode="OBS"> <templateId root= "2.16.840.1.956918.22.4.2" /> <id nullFlavor="NA" /> < code codeSystem="local" code="HGBT" displayName="HEMOGLOBIN" /> < statusCode code="completed" /> <effectiveTime value="" /> <value unit="gm/dL" xsi:type="PQ" value="7.8" /> < interpretationCode codeSystem="local" code="*" /> <referenceRange> <observationRange> <text>12.0-16.0</text> </ observationRange> </referenceRange> </observation> </ component> <component> <observation moodCode="EVN" classCode="OBS"> <templateId root="216.840.1.446628.10.20..4.2" /> <id nullFlavor="NA" /> <code codeSystem="local" code="HCTT" displayName= "HEMATOCRIT" /> <statusCode code="completed" /> < effectiveTime value="" /> <value unit="%" xsi:type="PQ " value="25.7" /> <interpretationCode codeSystem="local" code="*" /> <referenceRange> <observationRange> <text>37.0- 47.0</text> </observationRange> </referenceRange> </ observation> </component> <component> <observation moodCode= "EVN" classCode="OBS"> <templateId root="16.840.1.891613.10..4.2 " /> <id nullFlavor="NA" /> <code codeSystem="local" code="PLT " displayName="PLATELET COUNT" /> <statusCode code="completed" /> <effectiveTime value="" /> <value unit="k/cumm" xsi: type="PQ" value="372" /> <referenceRange> <observationRange > <text>150-400</text> </observationRange> </ referenceRange> </observation> </component> </organizer> </entry > <entry> <organizer moodCode="EVN" classCode="BATTERY"> <templateId root="216.840.1.140836.10..22.4.1" /> <id nullFlavor="NA" /> <code codeSystem="local" code="GLUMON" displayName="GLUCOSE (POC)" /> < statusCode code="completed" /> <component> <observation moodCode= "EVN" classCode="OBS"> <templateId root="2.16.840.1.213468.10.20.22.4.2 " /> <id nullFlavor="NA" /> <code codeSystem="local" code= "GLUMON" displayName="GLUCOSE (POC)" /> <statusCode code="completed" / > <effectiveTime value="772655387469" /> <value unit="mg/dL" xsi:type="PQ" value="94" /> <referenceRange> < observationRange> <text>70-99</text> </observationRange > </referenceRange> </observation> </component> </ organizer> </entry> <entry> <organizer moodCode="EVN" classCode="BATTERY"> <templateId root="2.16.840.1.817896.10.20.22.4.1" /> <id nullFlavor= "NA" /> <code codeSystem="local" code="GLUMON" displayName="GLUCOSE (POC)" /> <statusCode code="completed" /> <component> <observation moodCode="EVN" classCode="OBS"> <templateId root= "2.16.840.1.085147.10.20.22.4.2" /> <id nullFlavor="NA" /> < code codeSystem="local" code="GLUMON" displayName="GLUCOSE (POC)" /> < statusCode code="completed" /> <effectiveTime value="759339414748" /> <value unit="mg/dL" xsi:type="PQ" value="95" /> < referenceRange> <observationRange> <text>70-99</text> </observationRange> </referenceRange> </observation> </component> </organizer> </entry> <entry> <organizer moodCode="EVN " classCode="BATTERY"> <templateId root="05.27.840.1.864568.10..4.1" / > <id nullFlavor="NA" /> <code codeSystem="local" code="GLUMON" displayName="GLUCOSE (POC)" /> <statusCode code="completed" /> < component> <observation moodCode="EVN" classCode="OBS"> < templateId root="840.1.508736.01.28.22.4.2" /> <id nullFlavor="NA " /> <code codeSystem="local" code="GLUMON" displayName="GLUCOSE (POC) " /> <statusCode code="completed" /> <effectiveTime value= "" /> <value unit="mg/dL" xsi:type="PQ" value="94" /> <referenceRange> <observationRange> <text>70-99</ text> </observationRange> </referenceRange> </ observation> </component> </organizer> </entry> <entry> <organizer moodCode="EVN" classCode="BATTERY"> <templateId root= "840.1.590776.01.28.22.4.1" /> <id nullFlavor="NA" /> <code codeSystem="local" code="GLUMON" displayName="GLUCOSE (POC)" /> < statusCode code="completed" /> <component> <observation moodCode= "EVN" classCode="OBS"> <templateId root="05.27.840.1.777131.01.28.22.4.2 " /> <id nullFlavor="NA" /> <code codeSystem="local" code= "GLUMON" displayName="GLUCOSE (POC)" /> <statusCode code="completed" / > <effectiveTime value="" /> <value unit="mg/dL" xsi:type="PQ" value="115" /> <interpretationCode codeSystem="local" code="*" /> <referenceRange> <observationRange> <text>70-99</text> </observationRange> </referenceRange> </observation> </component> </organizer> </entry> <entry> < organizer moodCode="EVN" classCode="BATTERY"> <templateId root= "16.840.1.860831.10..22.4.1" /> <id nullFlavor="NA" /> <code codeSystem="local" code="GLUMON" displayName="GLUCOSE (POC)" /> < statusCode code="completed" /> <component> <observation moodCode= "EVN" classCode="OBS"> <templateId root="16.840.1.834704.10..22.4.2 " /> <id nullFlavor="NA" /> <code codeSystem="local" code= "GLUMON" displayName="GLUCOSE (POC)" /> <statusCode code="completed" / > <effectiveTime value="548104956359" /> <value unit="mg/dL" xsi:type="PQ" value="106" /> <interpretationCode codeSystem="local" code="*" /> <referenceRange> <observationRange> <text>70-99</text> </observationRange> </referenceRange> </observation> </component> </organizer> </entry> <entry> < organizer moodCode="EVN" classCode="BATTERY"> <templateId root= "16.840.1.308801.10..22.4.1" /> <id nullFlavor="NA" /> <code codeSystem="local" code="GLUMON" displayName="GLUCOSE (POC)" /> < statusCode code="completed" /> <component> <observation moodCode= "EVN" classCode="OBS"> <templateId root="2.16.840.1.685684.10.20.22.4.2 " /> <id nullFlavor="NA" /> <code codeSystem="local" code= "GLUMON" displayName="GLUCOSE (POC)" /> <statusCode code="completed" / > <effectiveTime value="399466674015" /> <value unit="mg/dL" xsi:type="PQ" value="101" /> <interpretationCode codeSystem="local" code="*" /> <referenceRange> <observationRange> <text>70-99</text> </observationRange> </referenceRange> </observation> </component> </organizer> </entry> <entry> < organizer moodCode="EVN" classCode="BATTERY"> <templateId root= "2.16.840.1.104919.10.20.22.4.1" /> <id nullFlavor="NA" /> <code codeSystem="local" code="GLUMON" displayName="GLUCOSE (POC)" /> < statusCode code="completed" /> <component> <observation moodCode= "EVN" classCode="OBS"> <templateId root="2.16.840.1.970922.10.20.22.4.2 " /> <id nullFlavor="NA" /> <code codeSystem="local" code= "GLUMON" displayName="GLUCOSE (POC)" /> <statusCode code="completed" / > <effectiveTime value="678710350356" /> <value unit="mg/dL" xsi:type="PQ" value="105" /> <interpretationCode codeSystem="local" code="*" /> <referenceRange> <observationRange> <text>70-99</text> </observationRange> </referenceRange> </observation> </component> </organizer> </entry> <entry> < organizer moodCode="EVN" classCode="BATTERY"> <templateId root= "840.1.284031.10..4.1" /> <id nullFlavor="NA" /> <code codeSystem="local" code="GLUMON" displayName="GLUCOSE (POC)" /> < statusCode code="completed" /> <component> <observation moodCode= "EVN" classCode="OBS"> <templateId root="840.1.608088.01.28.22.4.2 " /> <id nullFlavor="NA" /> <code codeSystem="local" code= "GLUMON" displayName="GLUCOSE (POC)" /> <statusCode code="completed" / > <effectiveTime value="358959297204" /> <value unit="mg/dL" xsi:type="PQ" value="111" /> <interpretationCode codeSystem="local" code="*" /> <referenceRange> <observationRange> <text>70-99</text> </observationRange> </referenceRange> </observation> </component> </organizer> </entry> <entry> < organizer moodCode="EVN" classCode="BATTERY"> <templateId root= "840.1.732407.01.28.22.4.1" /> <id nullFlavor="NA" /> <code codeSystem="local" code="GLUMON" displayName="GLUCOSE (POC)" /> < statusCode code="completed" /> <component> <observation moodCode= "EVN" classCode="OBS"> <templateId root="840.1.882812.01.28.22.4.2 " /> <id nullFlavor="NA" /> <code codeSystem="local" code= "GLUMON" displayName="GLUCOSE (POC)" /> <statusCode code="completed" / > <effectiveTime value="651870089370" /> <value unit="mg/dL" xsi:type="PQ" value="105" /> <interpretationCode codeSystem="local" code="*" /> <referenceRange> <observationRange> <text>70-99</text> </observationRange> </referenceRange> </observation> </component> </organizer> </entry> <entry> < organizer moodCode="EVN" classCode="BATTERY"> <templateId root= "2.16.840.1.728157.10.20.22.4.1" /> <id nullFlavor="NA" /> <code codeSystem="local" code="MRSAS" displayName="MRSA SURVEILLANCE SCREEN" /> < statusCode code="completed" /> <component> <observation moodCode= "EVN" classCode="OBS"> <templateId root="2.16.840.1.817590.10.20.22.4.2 " /> <id nullFlavor="NA" /> <code codeSystem="local" code="MB " displayName="Microbiology" /> <statusCode code="completed" /> <effectiveTime value="457954983941" /> <value xsi:type="ST" value="< pre><b>MRSA SURVEILLANCE SCREEN</b> See BelowMRSA SURVEILLANCE SCREEN(F) Sanam Date/Time: 04/21/2015 06:45 Crow Date/Time: 04/22/2015 06:54SOURCE: ANTERIOR NARESSPEC DESC: [facility] [place] [address]</pre> " /> <referenceRange> <observationRange> <text /> </observationRange> </referenceRange> </ observation> </component> </organizer> </entry> <entry> <organizer moodCode="EVN" classCode="BATTERY"> <templateId root= "2.16.840.1.257872.01.28.22.4.1" /> <id nullFlavor="NA" /> <code codeSystem="local" code="GLUMON" displayName="GLUCOSE (POC)" /> < statusCode code="completed" /> <component> <observation moodCode= "EVN" classCode="OBS"> <templateId root="840.1.043628.01.28.22.4.2 " /> <id nullFlavor="NA" /> <code codeSystem="local" code= "GLUMON" displayName="GLUCOSE (POC)" /> <statusCode code="completed" / > <effectiveTime value="470914401810" /> <value unit="mg/dL" xsi:type="PQ" value="104" /> <interpretationCode codeSystem="local" code="*" /> <referenceRange> <observationRange> <text>70-99</text> </observationRange> </referenceRange> </observation> </component> </organizer> </entry> <entry> < organizer moodCode="EVN" classCode="BATTERY"> <templateId root= "840.1.166956.01.28.22.4.1" /> <id nullFlavor="NA" /> <code codeSystem="local" code="GLUMON" displayName="GLUCOSE (POC)" /> < statusCode code="completed" /> <component> <observation moodCode= "EVN" classCode="OBS"> <templateId root="05.27.840.1.024675.01.28.22.4.2 " /> <id nullFlavor="NA" /> <code codeSystem="local" code= "GLUMON" displayName="GLUCOSE (POC)" /> <statusCode code="completed" / > <effectiveTime value="039430680893" /> <value unit="mg/dL" xsi:type="PQ" value="99" /> <referenceRange> < observationRange> <text>70-99</text> </observationRange > </referenceRange> </observation> </component> </ organizer> </entry> <entry> <organizer moodCode="EVN" classCode="BATTERY"> <templateId root="[id number]" /> <id nullFlavor= "NA" /> <code codeSystem="local" code="GLUMON" displayName="GLUCOSE (POC)" /> <statusCode code="completed" /> <component> <observation moodCode="EVN" classCode="OBS"> <templateId root= "[id number]...4.2" /> <id nullFlavor="NA" /> < code codeSystem="local" code="GLUMON" displayName="GLUCOSE (POC)" /> < statusCode code="completed" /> <effectiveTime value="686986689406" /> <value unit="mg/dL" xsi:type="PQ" value="107" /> < interpretationCode codeSystem="local" code="*" /> <referenceRange> <observationRange> <text>70-99</text> </ observationRange> </referenceRange> </observation> </ component> </organizer> </entry> <entry> <organizer moodCode="EVN" classCode="BATTERY"> <templateId root="216.840.1.761378.10...4.1" /> <id nullFlavor="NA" /> <code codeSystem="local" code="84641-2" displayName="Complete blood count (CBC) with automated white blood cell (WBC) differential" /> <statusCode code="completed" /> <component> < observation moodCode="EVN" classCode="OBS"> <templateId root= "216.840.1.223958.10.20.22.4.2" /> <id nullFlavor="NA" /> < code codeSystem="local" code="6690-2" displayName="Blood leukocytes automated count (number/volume)" /> <statusCode code="completed" /> < effectiveTime value="690618119113" /> <value unit="10*3/uL" xsi:type= "PQ" value="10.8" /> <referenceRange> <observationRange> <text>4.3-11.0</text> </observationRange> </ referenceRange> </observation> </component> <component> <observation moodCode="EVN" classCode="OBS"> <templateId root= "216.840.1.131679.10.20.22.4.2" /> <id nullFlavor="NA" /> < code codeSystem="local" code="789-8" displayName="Blood erythrocytes automated count (number/volume)" /> <statusCode code="completed" /> < effectiveTime value="050055585387" /> <value unit="10*6/uL" xsi:type= "PQ" value="4.88" /> <referenceRange> <observationRange> <text>4.35-5.85</text> </observationRange> </ referenceRange> </observation> </component> <component> <observation moodCode="EVN" classCode="OBS"> <templateId root= "16.840.1.632238.10.20.22.4.2" /> <id nullFlavor="NA" /> < code codeSystem="local" code="43495-7" displayName="Venous blood hemoglobin measurement (mass/volume)" /> <statusCode code="completed" /> <effectiveTime value="809549793000" /> <value unit="g/dL" xsi:type="PQ " value="11.3" /> <interpretationCode codeSystem="local" code="" /> <referenceRange> <observationRange> <text>11.5- 16.0</text> </observationRange> </referenceRange> </ observation> </component> <component> <observation moodCode= "EVN" classCode="OBS"> <templateId root="2.16.840.1.768552.10.20.22.4.2 " /> <id nullFlavor="NA" /> <code codeSystem="local" code= "96905-9" displayName="Blood hematocrit (volume fraction)" /> < statusCode code="completed" /> <effectiveTime value="346228252274" /> <value unit="%" xsi:type="PQ" value="36" /> < referenceRange> <observationRange> <text>35-52</text> </observationRange> </referenceRange> </observation> </component> <component> <observation moodCode="EVN" classCode= "OBS"> <templateId root="2.16.840.1.908161.10..22.4.2" /> < id nullFlavor="NA" /> <code codeSystem="local" code="787-2" displayName ="Automated erythrocyte mean corpuscular volume" /> <statusCode code= "completed" /> <effectiveTime value="568727171825" /> <value unit="[foz_us]" xsi:type="PQ" value="74" /> <interpretationCode codeSystem="local" code="" /> <referenceRange> < observationRange> <text>80-99</text> </observationRange > </referenceRange> </observation> </component> < component> <observation moodCode="EVN" classCode="OBS"> < templateId root="2.16.840.1.385421.10..22.4.2" /> <id nullFlavor="NA " /> <code codeSystem="local" code="785-6" displayName="Automated erythrocyte mean corpuscular hemoglobin (mass per erythrocyte)" /> < statusCode code="completed" /> <effectiveTime value="607671343905" /> <value unit="pg" xsi:type="PQ" value="23" /> < interpretationCode codeSystem="local" code="" /> <referenceRange> <observationRange> <text>25-34</text> </ observationRange> </referenceRange> </observation> </ component> <component> <observation moodCode="EVN" classCode="OBS"> <templateId root="2.16.840.1.400468.10.20.22.4.2" /> <id nullFlavor="NA" /> <code codeSystem="local" code="786-4" displayName= "Automated erythrocyte mean corpuscular hemoglobin concentration measurement ( mass/volume)" /> <statusCode code="completed" /> < effectiveTime value="267778007227" /> <value unit="g/dL" xsi:type="PQ" value="31" /> <interpretationCode codeSystem="local" code="" /> <referenceRange> <observationRange> <text>32-36</ text> </observationRange> </referenceRange> </ observation> </component> <component> <observation moodCode= "EVN" classCode="OBS"> <templateId root="2.16.840.1.477400.10.20.22.4.2 " /> <id nullFlavor="NA" /> <code codeSystem="local" code="788 -0" displayName="Automated erythrocyte distribution width ratio" /> < statusCode code="completed" /> <effectiveTime value="615255894781" /> <value unit="%" xsi:type="PQ" value="18.2" /> < interpretationCode codeSystem="local" code="" /> <referenceRange> <observationRange> <text>10.0-14.5</text> </ observationRange> </referenceRange> </observation> </ component> <component> <observation moodCode="EVN" classCode="OBS"> <templateId root="2.16.840.1.344647.01.28.22.4.2" /> <id nullFlavor="NA" /> <code codeSystem="local" code="777-3" displayName= "Automated blood platelet count (count/volume)" /> <statusCode code= "completed" /> <effectiveTime value="732469818205" /> <value unit="10*3/uL" xsi:type="PQ" value="459" /> <interpretationCode codeSystem="local" code="" /> <referenceRange> < observationRange> <text>130-400</text> </ observationRange> </referenceRange> </observation> </ component> <component> <observation moodCode="EVN" classCode="OBS"> <templateId root="216.840.1.927685.01.28.22.4.2" /> <id nullFlavor="NA" /> <code codeSystem="local" code="39678-4" displayName= "Automated blood platelet mean volume measurement" /> <statusCode code= "completed" /> <effectiveTime value="369620165311" /> <value unit="[foz_us]" xsi:type="PQ" value="9.7" /> <referenceRange> <observationRange> <text>7.4-10.4</text> </ observationRange> </referenceRange> </observation> </ component> <component> <observation moodCode="EVN" classCode="OBS"> <templateId root="2.16.840.1.878186...22.4.2" /> <id nullFlavor="NA" /> <code codeSystem="local" code="770-8" displayName= "Automated blood neutrophils/100 leukocytes" /> <statusCode code= "completed" /> <effectiveTime value="973231017804" /> <value unit="%" xsi:type="PQ" value="55" /> <referenceRange> < observationRange> <text>42-75</text> </observationRange > </referenceRange> </observation> </component> < component> <observation moodCode="EVN" classCode="OBS"> < templateId root="2.16.840.1.312721....4.2" /> <id nullFlavor="NA " /> <code codeSystem="local" code="736-9" displayName="Automated blood lymphocytes/100 leukocytes" /> <statusCode code="completed" /> <effectiveTime value="214616723034" /> <value unit="%" xsi: type="PQ" value="37" /> <referenceRange> <observationRange> <text>12-44</text> </observationRange> </ referenceRange> </observation> </component> <component> <observation moodCode="EVN" classCode="OBS"> <templateId root= "2.16.840.1.627757.10.20.22.4.2" /> <id nullFlavor="NA" /> < code codeSystem="local" code="20905-4" displayName="Blood monocytes/100 leukocytes" /> <statusCode code="completed" /> <effectiveTime value="793502979975" /> <value unit="%" xsi:type="PQ" value="6" /> <referenceRange> <observationRange> <text>0-12 </text> </observationRange> </referenceRange> </ observation> </component> <component> <observation moodCode= "EVN" classCode="OBS"> <templateId root="2.16.840.1.766441.10..22.4.2 " /> <id nullFlavor="NA" /> <code codeSystem="local" code="713 -8" displayName="Automated blood eosinophils/100 leukocytes" /> < statusCode code="completed" /> <effectiveTime value="829570958568" /> <value unit="%" xsi:type="PQ" value="2" /> <referenceRange > <observationRange> <text>0-10</text> </ observationRange> </referenceRange> </observation> </ component> <component> <observation moodCode="EVN" classCode="OBS"> <templateId root="216.840.1.439220.10.22.4.2" /> <id nullFlavor="NA" /> <code codeSystem="local" code="706-2" displayName= "Automated blood basophils/100 leukocytes" /> <statusCode code= "completed" /> <effectiveTime value="222512763435" /> <value unit="%" xsi:type="PQ" value="0" /> <referenceRange> < observationRange> <text>0-10</text> </observationRange> </referenceRange> </observation> </component> < component> <observation moodCode="EVN" classCode="OBS"> < templateId root="2.16.840.1.677233.10.20.22.4.2" /> <id nullFlavor="NA " /> <code codeSystem="local" code="751-8" displayName="Blood neutrophils automated count (number/volume)" /> <statusCode code= "completed" /> <effectiveTime value="236859365710" /> <value unit="10*3" xsi:type="PQ" value="5.9" /> <referenceRange> < observationRange> <text>1.8-7.8</text> </ observationRange> </referenceRange> </observation> </ component> <component> <observation moodCode="EVN" classCode="OBS"> <templateId root="2.16.840.1.696215.10.20.22.4.2" /> <id nullFlavor="NA" /> <code codeSystem="local" code="731-0" displayName= "Blood lymphocytes automated count (number/volume)" /> <statusCode code ="completed" /> <effectiveTime value="877316389980" /> <value unit="10*3" xsi:type="PQ" value="4.0" /> <referenceRange> < observationRange> <text>1.0-4.0</text> </ observationRange> </referenceRange> </observation> </ component> <component> <observation moodCode="EVN" classCode="OBS"> <templateId root="2.16.840.1.748201.10..22.4.2" /> <id nullFlavor="NA" /> <code codeSystem="local" code="742-7" displayName= "Blood monocytes automated count (number/volume)" /> <statusCode code= "completed" /> <effectiveTime value="858874544917" /> <value unit="10*3" xsi:type="PQ" value="0.6" /> <referenceRange> < observationRange> <text>0.0-1.0</text> </ observationRange> </referenceRange> </observation> </ component> <component> <observation moodCode="EVN" classCode="OBS"> <templateId root="2.16.840.1.327859.10.204.2" /> <id nullFlavor="NA" /> <code codeSystem="local" code="711-2" displayName= "Automated eosinophil count" /> <statusCode code="completed" /> <effectiveTime value="034689713118" /> <value unit="10*3/uL" xsi: type="PQ" value="0.2" /> <referenceRange> <observationRange > <text>0.0-0.3</text> </observationRange> </ referenceRange> </observation> </component> <component> <observation moodCode="EVN" classCode="OBS"> <templateId root= "216.840.1.285363.01.28.22.4.2" /> <id nullFlavor="NA" /> < code codeSystem="local" code="704-7" displayName="Automated blood basophil count (count/volume)" /> <statusCode code="completed" /> < effectiveTime value="717042233748" /> <value unit="10*3/uL" xsi:type= "PQ" value="0.0" /> <referenceRange> <observationRange> <text>0.0-0.1</text> </observationRange> </ referenceRange> </observation> </component> </organizer> </entry > <entry> <organizer moodCode="EVN" classCode="BATTERY"> <templateId root="16.840.1.371244.10.4.1" /> <id nullFlavor="NA" /> <code codeSystem="local" code="91452-7" displayName="Complete blood count (CBC) with automated white blood cell (WBC) differential" /> <statusCode code= "completed" /> <component> <observation moodCode="EVN" classCode= "OBS"> <templateId root="216.840.1.402271.01.28.22.4.2" /> < id nullFlavor="NA" /> <code codeSystem="local" code="6690-2" displayName="Blood leukocytes automated count (number/volume)" /> < statusCode code="completed" /> <effectiveTime value="" /> <value unit="10*3/uL" xsi:type="PQ" value="9.4" /> < referenceRange> <observationRange> <text>4.3-11.0</text > </observationRange> </referenceRange> </observation > </component> <component> <observation moodCode="EVN" classCode="OBS"> <templateId root="2.16.840.1.838159.01.28.22.4.2" /> <id nullFlavor="NA" /> <code codeSystem="local" code="789-8" displayName="Blood erythrocytes automated count (number/volume)" /> < statusCode code="completed" /> <effectiveTime value="" /> <value unit="10*6/uL" xsi:type="PQ" value="5.00" /> < referenceRange> <observationRange> <text>4.35-5.85</text > </observationRange> </referenceRange> </observation > </component> <component> <observation moodCode="EVN" classCode="OBS"> <templateId root="2.16.840.1.584409.01.28.22.4.2" /> <id nullFlavor="NA" /> <code codeSystem="local" code="29867-9 " displayName="Venous blood hemoglobin measurement (mass/volume)" /> < statusCode code="completed" /> <effectiveTime value="" /> <value unit="g/dL" xsi:type="PQ" value="11.7" /> < referenceRange> <observationRange> <text>11.5-16.0</text > </observationRange> </referenceRange> </observation > </component> <component> <observation moodCode="EVN" classCode="OBS"> <templateId root="216.840.1.264717.10.20.22.4.2" /> <id nullFlavor="NA" /> <code codeSystem="local" code="49322-0 " displayName="Blood hematocrit (volume fraction)" /> <statusCode code= "completed" /> <effectiveTime value="405838688610" /> <value unit="%" xsi:type="PQ" value="38" /> <referenceRange> < observationRange> <text>35-52</text> </observationRange > </referenceRange> </observation> </component> < component> <observation moodCode="EVN" classCode="OBS"> < templateId root="05.27.840.1.528919.10..22.4.2" /> <id nullFlavor="NA " /> <code codeSystem="local" code="787-2" displayName="Automated erythrocyte mean corpuscular volume" /> <statusCode code="completed" / > <effectiveTime value="662420722510" /> <value unit="[foz_us] " xsi:type="PQ" value="75" /> <interpretationCode codeSystem="local" code="" /> <referenceRange> <observationRange> <text>80-99</text> </observationRange> </referenceRange> </observation> </component> <component> <observation moodCode="EVN" classCode="OBS"> <templateId root= "16.840.1.465517.10.20.22.4.2" /> <id nullFlavor="NA" /> < code codeSystem="local" code="785-6" displayName="Automated erythrocyte mean corpuscular hemoglobin (mass per erythrocyte)" /> <statusCode code= "completed" /> <effectiveTime value="" /> <value unit="pg" xsi:type="PQ" value="23" /> <interpretationCode codeSystem= "local" code="" /> <referenceRange> <observationRange> <text>25-34</text> </observationRange> </ referenceRange> </observation> </component> <component> <observation moodCode="EVN" classCode="OBS"> <templateId root= "2.16.840.1.919970.10.20.22.4.2" /> <id nullFlavor="NA" /> < code codeSystem="local" code="786-4" displayName="Automated erythrocyte mean corpuscular hemoglobin concentration measurement (mass/volume)" /> < statusCode code="completed" /> <effectiveTime value="" /> <value unit="g/dL" xsi:type="PQ" value="31" /> < interpretationCode codeSystem="local" code="" /> <referenceRange> <observationRange> <text>32-36</text> </ observationRange> </referenceRange> </observation> </ component> <component> <observation moodCode="EVN" classCode="OBS"> <templateId root="2.16.840.1.006968.10.20.22.4.2" /> <id nullFlavor="NA" /> <code codeSystem="local" code="788-0" displayName= "Automated erythrocyte distribution width ratio" /> <statusCode code= "completed" /> <effectiveTime value="" /> <value unit="%" xsi:type="PQ" value="18.3" /> <interpretationCode codeSystem="local" code="" /> <referenceRange> < observationRange> <text>10.0-14.5</text> </ observationRange> </referenceRange> </observation> </ component> <component> <observation moodCode="EVN" classCode="OBS"> <templateId root="216.840.1.613460.10.20.22.4.2" /> <id nullFlavor="NA" /> <code codeSystem="local" code="777-3" displayName= "Automated blood platelet count (count/volume)" /> <statusCode code= "completed" /> <effectiveTime value="118126499298" /> <value unit="10*3/uL" xsi:type="PQ" value="554" /> <interpretationCode codeSystem="local" code="" /> <referenceRange> < observationRange> <text>130-400</text> </ observationRange> </referenceRange> </observation> </ component> <component> <observation moodCode="EVN" classCode="OBS"> <templateId root="216.840.1.176453.10..22.4.2" /> <id nullFlavor="NA" /> <code codeSystem="local" code="55678-4" displayName= "Automated blood platelet mean volume measurement" /> <statusCode code= "completed" /> <effectiveTime value="888793197644" /> <value unit="[foz_us]" xsi:type="PQ" value="9.7" /> <referenceRange> <observationRange> <text>7.4-10.4</text> </ observationRange> </referenceRange> </observation> </ component> <component> <observation moodCode="EVN" classCode="OBS"> <templateId root="2.16.840.1.147697.10.20.22.4.2" /> <id nullFlavor="NA" /> <code codeSystem="local" code="770-8" displayName= "Automated blood neutrophils/100 leukocytes" /> <statusCode code= "completed" /> <effectiveTime value="580896710478" /> <value unit="%" xsi:type="PQ" value="60" /> <referenceRange> < observationRange> <text>42-75</text> </observationRange > </referenceRange> </observation> </component> < component> <observation moodCode="EVN" classCode="OBS"> < templateId root="2.16.840.1.432519.10.20.22.4.2" /> <id nullFlavor="NA " /> <code codeSystem="local" code="736-9" displayName="Automated blood lymphocytes/100 leukocytes" /> <statusCode code="completed" /> <effectiveTime value="497614412554" /> <value unit="%" xsi: type="PQ" value="32" /> <referenceRange> <observationRange> <text>12-44</text> </observationRange> </ referenceRange> </observation> </component> <component> <observation moodCode="EVN" classCode="OBS"> <templateId root= "2.16.840.1.303678.10.20.22.4.2" /> <id nullFlavor="NA" /> < code codeSystem="local" code="41069-2" displayName="Blood monocytes/100 leukocytes" /> <statusCode code="completed" /> <effectiveTime value="435923180590" /> <value unit="%" xsi:type="PQ" value="5" /> <referenceRange> <observationRange> <text>0-12 </text> </observationRange> </referenceRange> </ observation> </component> <component> <observation moodCode= "EVN" classCode="OBS"> <templateId root="2.16.840.1.682179.10.20.22.4.2 " /> <id nullFlavor="NA" /> <code codeSystem="local" code="713 -8" displayName="Automated blood eosinophils/100 leukocytes" /> < statusCode code="completed" /> <effectiveTime value="" /> <value unit="%" xsi:type="PQ" value="2" /> <referenceRange > <observationRange> <text>0-10</text> </ observationRange> </referenceRange> </observation> </ component> <component> <observation moodCode="EVN" classCode="OBS"> <templateId root="2.16.840.1.837866.10.20.22.4.2" /> <id nullFlavor="NA" /> <code codeSystem="local" code="706-2" displayName= "Automated blood basophils/100 leukocytes" /> <statusCode code= "completed" /> <effectiveTime value="" /> <value unit="%" xsi:type="PQ" value="0" /> <referenceRange> < observationRange> <text>0-10</text> </observationRange> </referenceRange> </observation> </component> < component> <observation moodCode="EVN" classCode="OBS"> < templateId root="216.840.1.112420.10.20.22.4.2" /> <id nullFlavor="NA " /> <code codeSystem="local" code="751-8" displayName="Blood neutrophils automated count (number/volume)" /> <statusCode code= "completed" /> <effectiveTime value="" /> <value unit="10*3" xsi:type="PQ" value="4.9" /> <referenceRange> < observationRange> <text>1.8-7.8</text> </ observationRange> </referenceRange> </observation> </ component> <component> <observation moodCode="EVN" classCode="OBS"> <templateId root="216.840.1.070262.10.20.22.4.2" /> <id nullFlavor="NA" /> <code codeSystem="local" code="731-0" displayName= "Blood lymphocytes automated count (number/volume)" /> <statusCode code ="completed" /> <effectiveTime value="607886200007" /> <value unit="10*3" xsi:type="PQ" value="2.6" /> <referenceRange> < observationRange> <text>1.0-4.0</text> </ observationRange> </referenceRange> </observation> </ component> <component> <observation moodCode="EVN" classCode="OBS"> <templateId root="05.27.840.1.982728.10..22.4.2" /> <id nullFlavor="NA" /> <code codeSystem="local" code="742-7" displayName= "Blood monocytes automated count (number/volume)" /> <statusCode code= "completed" /> <effectiveTime value="203427656685" /> <value unit="10*3" xsi:type="PQ" value="0.4" /> <referenceRange> < observationRange> <text>0.0-1.0</text> </ observationRange> </referenceRange> </observation> </ component> <component> <observation moodCode="EVN" classCode="OBS"> <templateId root="16.840.1.620006.10.20.22.4.2" /> <id nullFlavor="NA" /> <code codeSystem="local" code="711-2" displayName= "Automated eosinophil count" /> <statusCode code="completed" /> <effectiveTime value="221413549858" /> <value unit="10*3/uL" xsi: type="PQ" value="0.2" /> <referenceRange> <observationRange > <text>0.0-0.3</text> </observationRange> </ referenceRange> </observation> </component> <component> <observation moodCode="EVN" classCode="OBS"> <templateId root= "05.27.840.1.362883.10.22.4.2" /> <id nullFlavor="NA" /> < code codeSystem="local" code="704-7" displayName="Automated blood basophil count (count/volume)" /> <statusCode code="completed" /> < effectiveTime value="" /> <value unit="10*3/uL" xsi:type= "PQ" value="0.0" /> <referenceRange> <observationRange> <text>0.0-0.1</text> </observationRange> </ referenceRange> </observation> </component> </organizer> </entry > <entry> <organizer moodCode="EVN" classCode="BATTERY"> <templateId root="05.27.840.1.445559.1022.4.1" /> <id nullFlavor="NA" /> <code codeSystem="local" code="59558-9" displayName="Comprehensive metabolic panel" / > <statusCode code="completed" /> <component> <observation moodCode="EVN" classCode="OBS"> <templateId root= "05.27.840.1.914137.10.20.22.4.2" /> <id nullFlavor="NA" /> < code codeSystem="local" code="2951-2" displayName="Serum or plasma sodium measurement (moles/volume)" /> <statusCode code="completed" /> <effectiveTime value="961555857239" /> <value unit="mmol/L" xsi:type= "PQ" value="137" /> <referenceRange> <observationRange> <text>135-145</text> </observationRange> </ referenceRange> </observation> </component> <component> <observation moodCode="EVN" classCode="OBS"> <templateId root= "2.16.840.1.930225.10.20.22.4.2" /> <id nullFlavor="NA" /> < code codeSystem="local" code="2823-3" displayName="Serum or plasma potassium measurement (moles/volume)" /> <statusCode code="completed" /> <effectiveTime value="393029671153" /> <value unit="mmol/L" xsi:type= "PQ" value="4.4" /> <referenceRange> <observationRange> <text>3.6-5.0</text> </observationRange> </ referenceRange> </observation> </component> <component> <observation moodCode="EVN" classCode="OBS"> <templateId root= "2.16.840.1.680387.10.20.22.4.2" /> <id nullFlavor="NA" /> < code codeSystem="local" code="2075-0" displayName="Serum or plasma chloride measurement (moles/volume)" /> <statusCode code="completed" /> <effectiveTime value="788142499414" /> <value unit="mmol/L" xsi:type= "PQ" value="108" /> <interpretationCode codeSystem="local" code="" / > <referenceRange> <observationRange> <text>98- 107</text> </observationRange> </referenceRange> </ observation> </component> <component> <observation moodCode= "EVN" classCode="OBS"> <templateId root="2.16.840.1.437127.10.20.22.4.2 " /> <id nullFlavor="NA" /> <code codeSystem="local" code= "2027-12" displayName="Carbon dioxide" /> <statusCode code="completed" / > <effectiveTime value="" /> <value unit="mmol/L" xsi:type="PQ" value="19" /> <interpretationCode codeSystem="local" code ="" /> <referenceRange> <observationRange> < text>21-32</text> </observationRange> </referenceRange> </observation> </component> <component> <observation moodCode="EVN" classCode="OBS"> <templateId root= "216.840.1.529601.10..22.4.2" /> <id nullFlavor="NA" /> < code codeSystem="local" code="69337-4" displayName="Serum or plasma anion gap determination (moles/volume)" /> <statusCode code="completed" /> <effectiveTime value="" /> <value unit="mmol/L" xsi: type="PQ" value="10" /> <referenceRange> <observationRange> <text>5-14</text> </observationRange> </ referenceRange> </observation> </component> <component> <observation moodCode="EVN" classCode="OBS"> <templateId root= "2.16.840.1.057684.10.20.22.4.2" /> <id nullFlavor="NA" /> < code codeSystem="local" code="3094-0" displayName="Serum or plasma urea nitrogen measurement (mass/volume)" /> <statusCode code="completed" /> <effectiveTime value="" /> <value unit="mg/dL" xsi:type="PQ" value="8" /> <referenceRange> < observationRange> <text>7-18</text> </observationRange> </referenceRange> </observation> </component> < component> <observation moodCode="EVN" classCode="OBS"> < templateId root="2.16.840.1.082605.10.20.22.4.2" /> <id nullFlavor="NA " /> <code codeSystem="local" code="2160-0" displayName="Serum or plasma creatinine measurement (mass/volume)" /> <statusCode code= "completed" /> <effectiveTime value="276791409924" /> <value unit="mg/dL" xsi:type="PQ" value="0.73" /> <referenceRange> <observationRange> <text>0.60-1.30</text> </ observationRange> </referenceRange> </observation> </ component> <component> <observation moodCode="EVN" classCode="OBS"> <templateId root="216.840.1.438710.10..22.4.2" /> <id nullFlavor="NA" /> <code codeSystem="local" code="3097-3" displayName= "Serum or plasma urea nitrogen/creatinine mass ratio" /> <statusCode code="completed" /> <effectiveTime value="219136086697" /> < value unit="" xsi:type="PQ" value="11" /> <referenceRange> < observationRange> <text>NRG</text> </observationRange> </referenceRange> </observation> </component> < component> <observation moodCode="EVN" classCode="OBS"> < templateId root="2.16.840.1.545195.10.20.22.4.2" /> <id nullFlavor="NA " /> <code codeSystem="local" code="88357-4" displayName="Serum or plasma creatinine measurement with calculation of estimated glomerular filtration rate" /> <statusCode code="completed" /> < effectiveTime value="232598062757" /> <value unit="" xsi:type="PQ" value=">" /> <referenceRange> <observationRange> <text>NRG</text> </observationRange> </referenceRange > </observation> </component> <component> <observation moodCode="EVN" classCode="OBS"> <templateId root= "2.16.840.1.712974.10.20.22.4.2" /> <id nullFlavor="NA" /> < code codeSystem="local" code="2345-7" displayName="Serum or plasma glucose measurement (mass/volume)" /> <statusCode code="completed" /> <effectiveTime value="163644381230" /> <value unit="mg/dL" xsi:type="PQ " value="96" /> <referenceRange> <observationRange> <text>70-105</text> </observationRange> </ referenceRange> </observation> </component> <component> <observation moodCode="EVN" classCode="OBS"> <templateId root= "2.16.840.1.214178.10.20.22.4.2" /> <id nullFlavor="NA" /> < code codeSystem="local" code="87063-9" displayName="Serum or plasma calcium measurement (mass/volume)" /> <statusCode code="completed" /> <effectiveTime value="939300051842" /> <value unit="mg/dL" xsi:type="PQ " value="9.8" /> <referenceRange> <observationRange> <text>8.5-10.1</text> </observationRange> </ referenceRange> </observation> </component> <component> <observation moodCode="EVN" classCode="OBS"> <templateId root= "2.16.840.1.575832.10.20.22.4.2" /> <id nullFlavor="NA" /> < code codeSystem="local" code="1974-05" displayName="Serum or plasma total bilirubin measurement (mass/volume)" /> <statusCode code="completed" / > <effectiveTime value="035605458111" /> <value unit="mg/dL" xsi:type="PQ" value="0.3" /> <referenceRange> < observationRange> <text>0.1-1.0</text> </ observationRange> </referenceRange> </observation> </ component> <component> <observation moodCode="EVN" classCode="OBS"> <templateId root="2.16.840.1.465556.10...4.2" /> <id nullFlavor="NA" /> <code codeSystem="local" code="67686" displayName= "Serum or plasma alkaline phosphatase measurement (enzymatic activity/volume)" / > <statusCode code="completed" /> <effectiveTime value= "981310447293" /> <value unit="U/L" xsi:type="PQ" value="56" /> <referenceRange> <observationRange> <text>40-136</ text> </observationRange> </referenceRange> </ observation> </component> <component> <observation moodCode= "EVN" classCode="OBS"> <templateId root="2.16.840.1.412982.10.20.22.4.2 " /> <id nullFlavor="NA" /> <code codeSystem="local" code= "192" displayName="Serum or plasma aspartate aminotransferase measurement ( enzymatic activity/volume)" /> <statusCode code="completed" /> <effectiveTime value="747842366367" /> <value unit="U/L" xsi:type="PQ " value="22" /> <referenceRange> <observationRange> <text>5-34</text> </observationRange> </referenceRange > </observation> </component> <component> <observation moodCode="EVN" classCode="OBS"> <templateId root= "216.840.1.440186.10..22.4.2" /> <id nullFlavor="NA" /> < code codeSystem="local" code="1742-6" displayName="Serum or plasma alanine aminotransferase measurement (enzymatic activity/volume)" /> < statusCode code="completed" /> <effectiveTime value="546929431332" /> <value unit="U/L" xsi:type="PQ" value="14" /> <referenceRange > <observationRange> <text>0-55</text> </ observationRange> </referenceRange> </observation> </ component> <component> <observation moodCode="EVN" classCode="OBS"> <templateId root="216.840.1.675105.10..22.4.2" /> <id nullFlavor="NA" /> <code codeSystem="local" code="2885-2" displayName= "Serum or plasma protein measurement (mass/volume)" /> <statusCode code ="completed" /> <effectiveTime value="736811859398" /> <value unit="g/dL" xsi:type="PQ" value="8.4" /> <interpretationCode codeSystem ="local" code="" /> <referenceRange> <observationRange> <text>6.4-8.2</text> </observationRange> </ referenceRange> </observation> </component> <component> <observation moodCode="EVN" classCode="OBS"> <templateId root= "05.27.840.1.134212.10.20.22.4.2" /> <id nullFlavor="NA" /> < code codeSystem="local" code="1751-7" displayName="Serum or plasma albumin measurement (mass/volume)" /> <statusCode code="completed" /> <effectiveTime value="438503048906" /> <value unit="g/dL" xsi:type="PQ " value="4.4" /> <referenceRange> <observationRange> <text>3.2-4.5</text> </observationRange> </ referenceRange> </observation> </component> </organizer> </entry > <entry> <organizer moodCode="EVN" classCode="BATTERY"> <templateId root="2.16.840.1.631977.10.20.22.4.1" /> <id nullFlavor="NA" /> <code codeSystem="local" code="4024-6" displayName="Serum or plasma salicylates measurement (mass/volume)" /> <statusCode code="completed" /> < component> <observation moodCode="EVN" classCode="OBS"> < templateId root="2.16.840.1.264752.10.20.22.4.2" /> <id nullFlavor="NA " /> <code codeSystem="local" code="4024-6" displayName="Serum or plasma salicylates measurement (mass/volume)" /> <statusCode code= "completed" /> <effectiveTime value="881465687881" /> <value unit="mg/dL" xsi:type="PQ" value="<" /> <interpretationCode codeSystem="local" code="" /> <referenceRange> < observationRange> <text>5.0-20.0</text> </ observationRange> </referenceRange> </observation> </ component> </organizer> </entry> <entry> <organizer moodCode="EVN" classCode="BATTERY"> <templateId root="216.840.1.368217.10...4.1" /> <id nullFlavor="NA" /> <code codeSystem="local" code="3298-7" displayName="Serum or plasma acetaminophen measurement (mass/volume)" /> < statusCode code="completed" /> <component> <observation moodCode= "EVN" classCode="OBS"> <templateId root="05.27.840.1.867657.10..4.2 " /> <id nullFlavor="NA" /> <code codeSystem="local" code= "3298-7" displayName="Serum or plasma acetaminophen measurement (mass/volume)" / > <statusCode code="completed" /> <effectiveTime value= "617865865900" /> <value unit="ug/mL" xsi:type="PQ" value="<" /> <interpretationCode codeSystem="local" code="" /> < referenceRange> <observationRange> <text>10-30</text> </observationRange> </referenceRange> </observation> </component> </organizer> </entry> <entry> <organizer moodCode="EVN " classCode="BATTERY"> <templateId root="05.27.840.1.160247.10.4.1" / > <id nullFlavor="NA" /> <code codeSystem="local" code="5643-2" displayName="Serum or plasma ethanol measurement (mass/volume)" /> < statusCode code="completed" /> <component> <observation moodCode= "EVN" classCode="OBS"> <templateId root="16.840.1.608882.10..22.4.2 " /> <id nullFlavor="NA" /> <code codeSystem="local" code= "5643-2" displayName="Serum or plasma ethanol measurement (mass/volume)" /> <statusCode code="completed" /> <effectiveTime value= "639880698200" /> <value unit="mg/dL" xsi:type="PQ" value="<" /> <referenceRange> <observationRange> <text><10< /text> </observationRange> </referenceRange> </ observation> </component> </organizer> </entry> <entry> <organizer moodCode="EVN" classCode="BATTERY"> <templateId root= "216.840.1.260545.10..22.4.1" /> <id nullFlavor="NA" /> <code codeSystem="local" code="65748-2" displayName="Complete urinalysis with reflex to culture" /> <statusCode code="completed" /> <component> < observation moodCode="EVN" classCode="OBS"> <templateId root= "216.840.1.059933.10..22.4.2" /> <id nullFlavor="NA" /> < code codeSystem="local" code="5778-6" displayName="Urine color determination" / > <statusCode code="completed" /> <effectiveTime value= "115961422499" /> <value unit="" xsi:type="PQ" value="YELLOW" /> <referenceRange> <observationRange> <text>NRG</text > </observationRange> </referenceRange> </observation > </component> <component> <observation moodCode="EVN" classCode="OBS"> <templateId root="16.840.1.995781.10.20.22.4.2" /> <id nullFlavor="NA" /> <code codeSystem="local" code="42670-3 " displayName="Urine clarity determination" /> <statusCode code= "completed" /> <effectiveTime value="" /> <value unit="" xsi:type="PQ" value="SLIGHTLY CLOUDY" /> <referenceRange> <observationRange> <text>NRG</text> </ observationRange> </referenceRange> </observation> </ component> <component> <observation moodCode="EVN" classCode="OBS"> <templateId root="2.16.840.1.991761.10..22.4.2" /> <id nullFlavor="NA" /> <code codeSystem="local" code="5803-2" displayName= "Urine pH measurement by test strip" /> <statusCode code="completed" / > <effectiveTime value="" /> <value unit="" xsi: type="PQ" value="6.5" /> <referenceRange> <observationRange > <text>5-9</text> </observationRange> </ referenceRange> </observation> </component> <component> <observation moodCode="EVN" classCode="OBS"> <templateId root= "2.16.840.1.334611.10..22.4.2" /> <id nullFlavor="NA" /> < code codeSystem="local" code="5811-5" displayName="Specific gravity of urine by test strip" /> <statusCode code="completed" /> <effectiveTime value="" /> <value unit="" xsi:type="PQ" value="1.010" /> <interpretationCode codeSystem="local" code="" /> < referenceRange> <observationRange> <text>1.016-1.022</ text> </observationRange> </referenceRange> </ observation> </component> <component> <observation moodCode= "EVN" classCode="OBS"> <templateId root="16.840.1.233087.10.22.4.2 " /> <id nullFlavor="NA" /> <code codeSystem="local" code= "89926-8" displayName="Urine protein assay by test strip, semi-quantitative" /> <statusCode code="completed" /> <effectiveTime value= "" /> <value unit="" xsi:type="PQ" value="NEGATIVE" /> <referenceRange> <observationRange> <text>NEGATIVE </text> </observationRange> </referenceRange> </ observation> </component> <component> <observation moodCode= "EVN" classCode="OBS"> <templateId root="05.27.840.1.105222.22.4.2 " /> <id nullFlavor="NA" /> <code codeSystem="local" code= "93105-4" displayName="Urine glucose detection by automated test strip" /> <statusCode code="completed" /> <effectiveTime value=" " /> <value unit="" xsi:type="PQ" value="NEGATIVE" /> < referenceRange> <observationRange> <text>NEGATIVE</text > </observationRange> </referenceRange> </observation > </component> <component> <observation moodCode="EVN" classCode="OBS"> <templateId root="05.27.840.1.097969.10.22.4.2" /> <id nullFlavor="NA" /> <code codeSystem="local" code="56047-6 " displayName="Erythrocytes detection in urine sediment by light microscopy" /> <statusCode code="completed" /> <effectiveTime value= "" /> <value unit="" xsi:type="PQ" value="4+" /> < interpretationCode codeSystem="local" code="*" /> <referenceRange> <observationRange> <text>NEGATIVE</text> </ observationRange> </referenceRange> </observation> </ component> <component> <observation moodCode="EVN" classCode="OBS"> <templateId root="05.27.840.1.914630.10.20.22.4.2" /> <id nullFlavor="NA" /> <code codeSystem="local" code="55082-7" displayName= "Urine ketones detection by automated test strip" /> <statusCode code= "completed" /> <effectiveTime value="929530197116" /> <value unit="" xsi:type="PQ" value="3+" /> <interpretationCode codeSystem= "local" code="*" /> <referenceRange> <observationRange> <text>NEGATIVE</text> </observationRange> </ referenceRange> </observation> </component> <component> <observation moodCode="EVN" classCode="OBS"> <templateId root= "05.27.840.1.568662.10.2022.4.2" /> <id nullFlavor="NA" /> < code codeSystem="local" code="5802-4" displayName="Urine nitrite detection by test strip" /> <statusCode code="completed" /> <effectiveTime value="" /> <value unit="" xsi:type="PQ" value="NEGATIVE" / > <referenceRange> <observationRange> <text> NEGATIVE</text> </observationRange> </referenceRange> </observation> </component> <component> <observation moodCode ="EVN" classCode="OBS"> <templateId root= "05.27.840.1.452574.10.20.22.4.2" /> <id nullFlavor="NA" /> < code codeSystem="local" code="5770-3" displayName="Urine total bilirubin detection by test strip" /> <statusCode code="completed" /> < effectiveTime value="463736601343" /> <value unit="" xsi:type="PQ" value="NEGATIVE" /> <referenceRange> <observationRange> <text>NEGATIVE</text> </observationRange> </ referenceRange> </observation> </component> <component> <observation moodCode="EVN" classCode="OBS"> <templateId root= "216.840.1.703370.10..4.2" /> <id nullFlavor="NA" /> < code codeSystem="local" code="98899-0" displayName="Urine urobilinogen measurement by automated test strip (mass/volume)" /> <statusCode code= "completed" /> <effectiveTime value="" /> <value unit="" xsi:type="PQ" value="NORMAL" /> <referenceRange> < observationRange> <text>NORMAL</text> </observationRange > </referenceRange> </observation> </component> < component> <observation moodCode="EVN" classCode="OBS"> < templateId root="16.840.1.496798.10..4.2" /> <id nullFlavor="NA " /> <code codeSystem="local" code="5799-2" displayName="Urine leukocyte esterase detection by dipstick" /> <statusCode code= "completed" /> <effectiveTime value="609020222353" /> <value unit="" xsi:type="PQ" value="NEGATIVE" /> <referenceRange> < observationRange> <text>NEGATIVE</text> </ observationRange> </referenceRange> </observation> </ component> <component> <observation moodCode="EVN" classCode="OBS"> <templateId root="216.840.1.392538..4.2" /> <id nullFlavor="NA" /> <code codeSystem="local" code="45379-1" displayName= "Automated urine sediment erythrocyte count by microscopy (number/high power field)" /> <statusCode code="completed" /> <effectiveTime value="" /> <value unit="" xsi:type="PQ" value="RARE" /> <referenceRange> <observationRange> <text>NRG</ text> </observationRange> </referenceRange> </ observation> </component> <component> <observation moodCode= "EVN" classCode="OBS"> <templateId root="2.16.840.1.195280.01.28.22.4.2 " /> <id nullFlavor="NA" /> <code codeSystem="local" code= "5821-4" displayName="Automated urine sediment leukocyte count by microscopy ( number/high power field)" /> <statusCode code="completed" /> < effectiveTime value="" /> <value unit="[HPF]" xsi:type="PQ " value="" /> <referenceRange> <observationRange> <text>NRG</text> </observationRange> </referenceRange> </observation> </component> <component> <observation moodCode="EVN" classCode="OBS"> <templateId root= "2.16.840.1.686435.10.4.2" /> <id nullFlavor="NA" /> < code codeSystem="local" code="49621-2" displayName="Bacteria detection in urine sediment by light microscopy" /> <statusCode code="completed" /> <effectiveTime value="" /> <value unit="" xsi:type="PQ " value="NEGATIVE" /> <referenceRange> <observationRange> <text>NRG</text> </observationRange> </ referenceRange> </observation> </component> <component> <observation moodCode="EVN" classCode="OBS"> <templateId root= "216.840.1.579353.10..22.4.2" /> <id nullFlavor="NA" /> < code codeSystem="local" code="30981-2" displayName="Squamous epithelial cells detection in urine sediment by light microscopy" /> <statusCode code= "completed" /> <effectiveTime value="" /> <value unit="" xsi:type="PQ" value="2-5" /> <referenceRange> < observationRange> <text>NRG</text> </observationRange> </referenceRange> </observation> </component> < component> <observation moodCode="EVN" classCode="OBS"> < templateId root="216.840.1.955675.01.28.22.4.2" /> <id nullFlavor="NA " /> <code codeSystem="local" code="10374-6" displayName="Crystals detection in urine sediment by light microscopy" /> <statusCode code= "completed" /> <effectiveTime value="" /> <value unit="" xsi:type="PQ" value="NONE" /> <referenceRange> < observationRange> <text>NRG</text> </observationRange> </referenceRange> </observation> </component> < component> <observation moodCode="EVN" classCode="OBS"> < templateId root="216.840.1.685113.10..22.4.2" /> <id nullFlavor="NA " /> <code codeSystem="local" code="21008-6" displayName="Casts detection in urine sediment by light microscopy" /> <statusCode code= "completed" /> <effectiveTime value="" /> <value unit="" xsi:type="PQ" value="NONE" /> <referenceRange> < observationRange> <text>NRG</text> </observationRange> </referenceRange> </observation> </component> < component> <observation moodCode="EVN" classCode="OBS"> < templateId root="16.840.1.696934.10.20.22.4.2" /> <id nullFlavor="NA " /> <code codeSystem="local" code="8247-9" displayName="Mucus detection in urine sediment by light microscopy" /> <statusCode code= "completed" /> <effectiveTime value="" /> <value unit="" xsi:type="PQ" value="NEGATIVE" /> <referenceRange> < observationRange> <text>NRG</text> </observationRange> </referenceRange> </observation> </component> < component> <observation moodCode="EVN" classCode="OBS"> < templateId root="840.1.041629.10.2022.4.2" /> <id nullFlavor="NA " /> <code codeSystem="local" code="75531-0" displayName="Complete urinalysis with reflex to culture" /> <statusCode code="completed" /> <effectiveTime value="" /> <value unit="" xsi:type ="PQ" value="NO" /> <referenceRange> <observationRange> <text>NRG</text> </observationRange> </ referenceRange> </observation> </component> <component> <observation moodCode="EVN" classCode="OBS"> <templateId root= "05.27.840.1.172510.10.20.22.4.2" /> <id nullFlavor="NA" /> < code codeSystem="local" code="31179-9" displayName="Yeast detection in urine sediment by light microscopy" /> <statusCode code="completed" /> <effectiveTime value="566501300380" /> <value unit="" xsi:type="PQ " value="FEW" /> <interpretationCode codeSystem="local" code="*" /> <referenceRange> <observationRange> <text>NRG</ text> </observationRange> </referenceRange> </ observation> </component> </organizer> </entry> <entry> <organizer moodCode="EVN" classCode="BATTERY"> <templateId root= "2.16.840.1.252872.10.20.22.4.1" /> <id nullFlavor="NA" /> <code codeSystem="local" code="10284-2" displayName="Urine drug screening test" /> <statusCode code="completed" /> <component> <observation moodCode ="EVN" classCode="OBS"> <templateId root= "2.16.840.1.618360.10.20.22.4.2" /> <id nullFlavor="NA" /> < code codeSystem="local" code="64676-3" displayName="Urine phencyclidine detection by screening method" /> <statusCode code="completed" /> <effectiveTime value="703151659050" /> <value unit="" xsi:type="PQ " value="NEGATIVE" /> <referenceRange> <observationRange> <text>NEGATIVE</text> </observationRange> </ referenceRange> </observation> </component> <component> <observation moodCode="EVN" classCode="OBS"> <templateId root= "2.16.840.1.613327.10.20.22.4.2" /> <id nullFlavor="NA" /> < code codeSystem="local" code="02224-4" displayName="Urine benzodiazepines detection by screening method" /> <statusCode code="completed" /> <effectiveTime value="" /> <value unit="" xsi:type="PQ " value="POSITIVE" /> <interpretationCode codeSystem="local" code="*" / > <referenceRange> <observationRange> <text> NEGATIVE</text> </observationRange> </referenceRange> </observation> </component> <component> <observation moodCode ="EVN" classCode="OBS"> <templateId root= "216.840.1.404272.10..4.2" /> <id nullFlavor="NA" /> < code codeSystem="local" code="3397-7" displayName="Urine cocaine detection" /> <statusCode code="completed" /> <effectiveTime value= "" /> <value unit="" xsi:type="PQ" value="NEGATIVE" /> <referenceRange> <observationRange> <text>NEGATIVE </text> </observationRange> </referenceRange> </ observation> </component> <component> <observation moodCode= "EVN" classCode="OBS"> <templateId root="16.840.1.283422.01.28.22.4.2 " /> <id nullFlavor="NA" /> <code codeSystem="local" code= "19654-9" displayName="Urine amphetamines detection by screening method" /> <statusCode code="completed" /> <effectiveTime value= "" /> <value unit="" xsi:type="PQ" value="NEGATIVE" /> <referenceRange> <observationRange> <text>NEGATIVE </text> </observationRange> </referenceRange> </ observation> </component> <component> <observation moodCode= "EVN" classCode="OBS"> <templateId root="216.840.1.593690..22.4.2 " /> <id nullFlavor="NA" /> <code codeSystem="local" code= "56975-7" displayName="Urine methamphetamine detection by screening method" /> <statusCode code="completed" /> <effectiveTime value= "" /> <value unit="" xsi:type="PQ" value="NEGATIVE" /> <referenceRange> <observationRange> <text>NEGATIVE </text> </observationRange> </referenceRange> </ observation> </component> <component> <observation moodCode= "EVN" classCode="OBS"> <templateId root="2.16.840.1.660638.10.20.22.4.2 " /> <id nullFlavor="NA" /> <code codeSystem="local" code= "75549-1" displayName="Urine cannabinoids detection by screening method" /> <statusCode code="completed" /> <effectiveTime value= "" /> <value unit="" xsi:type="PQ" value="NEGATIVE" /> <referenceRange> <observationRange> <text>NEGATIVE </text> </observationRange> </referenceRange> </ observation> </component> <component> <observation moodCode= "EVN" classCode="OBS"> <templateId root="2.16.840.1.546223.10.20.22.4.2 " /> <id nullFlavor="NA" /> <code codeSystem="local" code= "56420-2" displayName="Urine opiates detection by screening method" /> <statusCode code="completed" /> <effectiveTime value="" /> <value unit="" xsi:type="PQ" value="NEGATIVE" /> < referenceRange> <observationRange> <text>NEGATIVE</text > </observationRange> </referenceRange> </observation > </component> <component> <observation moodCode="EVN" classCode="OBS"> <templateId root="2.16.840.1.190498.10..22.4.2" /> <id nullFlavor="NA" /> <code codeSystem="local" code="3377-9" displayName="Urine barbiturates detection" /> <statusCode code= "completed" /> <effectiveTime value="" /> <value unit="" xsi:type="PQ" value="NEGATIVE" /> <referenceRange> < observationRange> <text>NEGATIVE</text> </ observationRange> </referenceRange> </observation> </ component> <component> <observation moodCode="EVN" classCode="OBS"> <templateId root="216.840.1.129375.10...4.2" /> <id nullFlavor="NA" /> <code codeSystem="local" code="32231-9" displayName= "Screening urine tricyclic antidepressants detection" /> <statusCode code="completed" /> <effectiveTime value="" /> < value unit="" xsi:type="PQ" value="NEGATIVE" /> <referenceRange> <observationRange> <text>NEGATIVE</text> </ observationRange> </referenceRange> </observation> </ component> <component> <observation moodCode="EVN" classCode="OBS"> <templateId root="16.840.1.517998.1022.4.2" /> <id nullFlavor="NA" /> <code codeSystem="local" code="41332-4" displayName= "Urine methadone detection by screening method" /> <statusCode code= "completed" /> <effectiveTime value="" /> <value unit="" xsi:type="PQ" value="NEGATIVE" /> <referenceRange> < observationRange> <text>NEGATIVE</text> </ observationRange> </referenceRange> </observation> </ component> <component> <observation moodCode="EVN" classCode="OBS"> <templateId root="216.840.1.721118.10..22.4.2" /> <id nullFlavor="NA" /> <code codeSystem="local" code="82078-4" displayName= "Urine oxycodone detection" /> <statusCode code="completed" /> <effectiveTime value="" /> <value unit="" xsi:type="PQ" value="NEGATIVE" /> <referenceRange> <observationRange> <text>NEGATIVE</text> </observationRange> </ referenceRange> </observation> </component> <component> <observation moodCode="EVN" classCode="OBS"> <templateId root= "216.840.1.572056...4.2" /> <id nullFlavor="NA" /> < code codeSystem="local" code="78822-5" displayName="Urine propoxyphene detection " /> <statusCode code="completed" /> <effectiveTime value= "" /> <value unit="" xsi:type="PQ" value="NEGATIVE" /> <referenceRange> <observationRange> <text>NEGATIVE </text> </observationRange> </referenceRange> </ observation> </component> <component> <observation moodCode= "EVN" classCode="OBS"> <templateId root="216.840.1.114592.10..22.4.2 " /> <id nullFlavor="NA" /> <code codeSystem="local" code= "83928-2" displayName="Urine buprenophrine screen" /> <statusCode code= "completed" /> <effectiveTime value="" /> <value unit="" xsi:type="PQ" value="NEGATIVE" /> <referenceRange> < observationRange> <text>NEGATIVE</text> </ observationRange> </referenceRange> </observation> </ component> </organizer> </entry> <entry> <organizer moodCode="EVN" classCode="BATTERY"> <templateId root="2.16.840.1.455805.10.20.22.4.1" /> <id nullFlavor="NA" /> <code codeSystem="local" code="12613-5" displayName="Capillary blood glucose measurement by glucometer (mass/volume)" / > <statusCode code="completed" /> <component> <observation moodCode="EVN" classCode="OBS"> <templateId root= "2.16.840.1.376756.10.20.22.4.2" /> <id nullFlavor="NA" /> < code codeSystem="local" code="85073-5" displayName="Capillary blood glucose measurement by glucometer (mass/volume)" /> <statusCode code="completed " /> <effectiveTime value="912413236842" /> <value unit="mg/dL " xsi:type="PQ" value="118" /> <interpretationCode codeSystem="local" code="" /> <referenceRange> <observationRange> <text>70-110</text> </observationRange> </referenceRange > </observation> </component> </organizer> </entry> <entry> <organizer moodCode="EVN" classCode="BATTERY"> <templateId root= "2.16.840.1.290894.10.20.22.4.1" /> <id nullFlavor="NA" /> <code codeSystem="local" code="84734-3" displayName="Complete blood count (CBC) with automated white blood cell (WBC) differential" /> <statusCode code= "completed" /> <component> <observation moodCode="EVN" classCode= "OBS"> <templateId root="216.840.1.194136.10.20.22.4.2" /> < id nullFlavor="NA" /> <code codeSystem="local" code="6690-2" displayName="Blood leukocytes automated count (number/volume)" /> < statusCode code="completed" /> <effectiveTime value="" /> <value unit="10*3/uL" xsi:type="PQ" value="7.2" /> < referenceRange> <observationRange> <text>4.3-11.0</text > </observationRange> </referenceRange> </observation > </component> <component> <observation moodCode="EVN" classCode="OBS"> <templateId root="216.840.1.000434.10.22.4.2" /> <id nullFlavor="NA" /> <code codeSystem="local" code="789-8" displayName="Blood erythrocytes automated count (number/volume)" /> < statusCode code="completed" /> <effectiveTime value="" /> <value unit="10*6/uL" xsi:type="PQ" value="4.09" /> < interpretationCode codeSystem="local" code="" /> <referenceRange> <observationRange> <text>4.35-5.85</text> </ observationRange> </referenceRange> </observation> </ component> <component> <observation moodCode="EVN" classCode="OBS"> <templateId root="216.840.1.234302.10.20.22.4.2" /> <id nullFlavor="NA" /> <code codeSystem="local" code="04164-2" displayName= "Venous blood hemoglobin measurement (mass/volume)" /> <statusCode code ="completed" /> <effectiveTime value="017973383811" /> <value unit="g/dL" xsi:type="PQ" value="9.5" /> <interpretationCode codeSystem ="local" code="" /> <referenceRange> <observationRange> <text>11.5-16.0</text> </observationRange> </ referenceRange> </observation> </component> <component> <observation moodCode="EVN" classCode="OBS"> <templateId root= "2.16.840.1.012921.10.20.22.4.2" /> <id nullFlavor="NA" /> < code codeSystem="local" code="46931-0" displayName="Blood hematocrit (volume fraction)" /> <statusCode code="completed" /> <effectiveTime value="" /> <value unit="%" xsi:type="PQ" value="31" / > <interpretationCode codeSystem="local" code="" /> < referenceRange> <observationRange> <text>35-52</text> </observationRange> </referenceRange> </observation> </component> <component> <observation moodCode="EVN" classCode= "OBS"> <templateId root="2.16.840.1.970043.10.20.22.4.2" /> < id nullFlavor="NA" /> <code codeSystem="local" code="787-2" displayName ="Automated erythrocyte mean corpuscular volume" /> <statusCode code= "completed" /> <effectiveTime value="" /> <value unit="[foz_us]" xsi:type="PQ" value="76" /> <interpretationCode codeSystem="local" code="" /> <referenceRange> < observationRange> <text>80-99</text> </observationRange > </referenceRange> </observation> </component> < component> <observation moodCode="EVN" classCode="OBS"> < templateId root="216.840.1.448778.10.20.22.4.2" /> <id nullFlavor="NA " /> <code codeSystem="local" code="785-6" displayName="Automated erythrocyte mean corpuscular hemoglobin (mass per erythrocyte)" /> < statusCode code="completed" /> <effectiveTime value="" /> <value unit="pg" xsi:type="PQ" value="23" /> < interpretationCode codeSystem="local" code="" /> <referenceRange> <observationRange> <text>25-34</text> </ observationRange> </referenceRange> </observation> </ component> <component> <observation moodCode="EVN" classCode="OBS"> <templateId root="05.27.840.1.587416.10..22.4.2" /> <id nullFlavor="NA" /> <code codeSystem="local" code="786-4" displayName= "Automated erythrocyte mean corpuscular hemoglobin concentration measurement ( mass/volume)" /> <statusCode code="completed" /> < effectiveTime value="" /> <value unit="g/dL" xsi:type="PQ" value="31" /> <interpretationCode codeSystem="local" code="" /> <referenceRange> <observationRange> <text>32-36</ text> </observationRange> </referenceRange> </ observation> </component> <component> <observation moodCode= "EVN" classCode="OBS"> <templateId root="216.840.1.015338.10.20.22.4.2 " /> <id nullFlavor="NA" /> <code codeSystem="local" code="788 -0" displayName="Automated erythrocyte distribution width ratio" /> < statusCode code="completed" /> <effectiveTime value="" /> <value unit="%" xsi:type="PQ" value="17.9" /> < interpretationCode codeSystem="local" code="" /> <referenceRange> <observationRange> <text>10.0-14.5</text> </ observationRange> </referenceRange> </observation> </ component> <component> <observation moodCode="EVN" classCode="OBS"> <templateId root="2.16.840.1.231564.10...4.2" /> <id nullFlavor="NA" /> <code codeSystem="local" code="777-3" displayName= "Automated blood platelet count (count/volume)" /> <statusCode code= "completed" /> <effectiveTime value="" /> <value unit="10*3/uL" xsi:type="PQ" value="473" /> <interpretationCode codeSystem="local" code="" /> <referenceRange> < observationRange> <text>130-400</text> </ observationRange> </referenceRange> </observation> </ component> <component> <observation moodCode="EVN" classCode="OBS"> <templateId root="2.16.840.1.502548.01.28.22.4.2" /> <id nullFlavor="NA" /> <code codeSystem="local" code="28009-3" displayName= "Automated blood platelet mean volume measurement" /> <statusCode code= "completed" /> <effectiveTime value="" /> <value unit="[foz_us]" xsi:type="PQ" value="9.9" /> <referenceRange> <observationRange> <text>7.4-10.4</text> </ observationRange> </referenceRange> </observation> </ component> <component> <observation moodCode="EVN" classCode="OBS"> <templateId root="2.16.840.1.749590.10.20.22.4.2" /> <id nullFlavor="NA" /> <code codeSystem="local" code="770-8" displayName= "Automated blood neutrophils/100 leukocytes" /> <statusCode code= "completed" /> <effectiveTime value="070855560939" /> <value unit="%" xsi:type="PQ" value="43" /> <referenceRange> < observationRange> <text>42-75</text> </observationRange > </referenceRange> </observation> </component> < component> <observation moodCode="EVN" classCode="OBS"> < templateId root="216.840.1.073732.10.4.2" /> <id nullFlavor="NA " /> <code codeSystem="local" code="736-9" displayName="Automated blood lymphocytes/100 leukocytes" /> <statusCode code="completed" /> <effectiveTime value="608859499220" /> <value unit="%" xsi: type="PQ" value="47" /> <interpretationCode codeSystem="local" code=" " /> <referenceRange> <observationRange> <text> 12-44</text> </observationRange> </referenceRange> </ observation> </component> <component> <observation moodCode= "EVN" classCode="OBS"> <templateId root="2.16.840.1.394271.10..22.4.2 " /> <id nullFlavor="NA" /> <code codeSystem="local" code= "55466-2" displayName="Blood monocytes/100 leukocytes" /> <statusCode code="completed" /> <effectiveTime value="577687188519" /> < value unit="%" xsi:type="PQ" value="7" /> <referenceRange> <observationRange> <text>0-12</text> </ observationRange> </referenceRange> </observation> </ component> <component> <observation moodCode="EVN" classCode="OBS"> <templateId root="2.16.840.1.058439.10..22.4.2" /> <id nullFlavor="NA" /> <code codeSystem="local" code="713-8" displayName= "Automated blood eosinophils/100 leukocytes" /> <statusCode code= "completed" /> <effectiveTime value="314311266190" /> <value unit="%" xsi:type="PQ" value="3" /> <referenceRange> < observationRange> <text>0-10</text> </observationRange> </referenceRange> </observation> </component> < component> <observation moodCode="EVN" classCode="OBS"> < templateId root="216.840.1.655008.10...4.2" /> <id nullFlavor="NA " /> <code codeSystem="local" code="706-2" displayName="Automated blood basophils/100 leukocytes" /> <statusCode code="completed" /> <effectiveTime value="666196885007" /> <value unit="%" xsi: type="PQ" value="0" /> <referenceRange> <observationRange> <text>0-10</text> </observationRange> </ referenceRange> </observation> </component> <component> <observation moodCode="EVN" classCode="OBS"> <templateId root= "2.16.840.1.731272.22.4.2" /> <id nullFlavor="NA" /> < code codeSystem="local" code="751-8" displayName="Blood neutrophils automated count (number/volume)" /> <statusCode code="completed" /> < effectiveTime value="" /> <value unit="10*3" xsi:type="PQ" value="3.1" /> <referenceRange> <observationRange> <text>1.8-7.8</text> </observationRange> </ referenceRange> </observation> </component> <component> <observation moodCode="EVN" classCode="OBS"> <templateId root= "2.16.840.1.525721.01.28.22.4.2" /> <id nullFlavor="NA" /> < code codeSystem="local" code="731-0" displayName="Blood lymphocytes automated count (number/volume)" /> <statusCode code="completed" /> < effectiveTime value="" /> <value unit="10*3" xsi:type="PQ" value="3.4" /> <referenceRange> <observationRange> <text>1.0-4.0</text> </observationRange> </ referenceRange> </observation> </component> <component> <observation moodCode="EVN" classCode="OBS"> <templateId root= "2.16.840.1.443076.01.28.22.4.2" /> <id nullFlavor="NA" /> < code codeSystem="local" code="742-7" displayName="Blood monocytes automated count (number/volume)" /> <statusCode code="completed" /> < effectiveTime value="" /> <value unit="10*3" xsi:type="PQ" value="0.5" /> <referenceRange> <observationRange> <text>0.0-1.0</text> </observationRange> </ referenceRange> </observation> </component> <component> <observation moodCode="EVN" classCode="OBS"> <templateId root= "216.840.1.255320.10.20.22.4.2" /> <id nullFlavor="NA" /> < code codeSystem="local" code="711-2" displayName="Automated eosinophil count" / > <statusCode code="completed" /> <effectiveTime value= "510631381156" /> <value unit="10*3/uL" xsi:type="PQ" value="0.2" /> <referenceRange> <observationRange> <text>0.0- 0.3</text> </observationRange> </referenceRange> </ observation> </component> <component> <observation moodCode= "EVN" classCode="OBS"> <templateId root="16.840.1.812688.10...4.2 " /> <id nullFlavor="NA" /> <code codeSystem="local" code="704 -7" displayName="Automated blood basophil count (count/volume)" /> < statusCode code="completed" /> <effectiveTime value="" /> <value unit="10*3/uL" xsi:type="PQ" value="0.0" /> < referenceRange> <observationRange> <text>0.0-0.1</text> </observationRange> </referenceRange> </observation > </component> </organizer> </entry> <entry> <organizer moodCode= "EVN" classCode="BATTERY"> <templateId root="216.840.1.473597.10..22.4.1 " /> <id nullFlavor="NA" /> <code codeSystem="local" code="62685-8" displayName="Comprehensive metabolic panel" /> <statusCode code="completed " /> <component> <observation moodCode="EVN" classCode="OBS"> <templateId root="2.16.840.1.811231.10..22.4.2" /> <id nullFlavor ="NA" /> <code codeSystem="local" code="2951-2" displayName="Serum or plasma sodium measurement (moles/volume)" /> <statusCode code= "completed" /> <effectiveTime value="726264529921" /> <value unit="mmol/L" xsi:type="PQ" value="139" /> <referenceRange> <observationRange> <text>135-145</text> </ observationRange> </referenceRange> </observation> </ component> <component> <observation moodCode="EVN" classCode="OBS"> <templateId root="216.840.1.607979.10..4.2" /> <id nullFlavor="NA" /> <code codeSystem="local" code="2823-3" displayName= "Serum or plasma potassium measurement (moles/volume)" /> <statusCode code="completed" /> <effectiveTime value="211720995485" /> < value unit="mmol/L" xsi:type="PQ" value="3.8" /> <referenceRange> <observationRange> <text>3.6-5.0</text> </ observationRange> </referenceRange> </observation> </ component> <component> <observation moodCode="EVN" classCode="OBS"> <templateId root="2.16.840.1.929447.10.20.22.4.2" /> <id nullFlavor="NA" /> <code codeSystem="local" code="2075-0" displayName= "Serum or plasma chloride measurement (moles/volume)" /> <statusCode code="completed" /> <effectiveTime value="543547793461" /> < value unit="mmol/L" xsi:type="PQ" value="113" /> <interpretationCode codeSystem="local" code="" /> <referenceRange> < observationRange> <text>98-107</text> </observationRange > </referenceRange> </observation> </component> < component> <observation moodCode="EVN" classCode="OBS"> < templateId root="2.16.840.1.099245.10.20.22.4.2" /> <id nullFlavor="NA " /> <code codeSystem="local" code="2027-12" displayName="Carbon dioxide " /> <statusCode code="completed" /> <effectiveTime value= "295724478796" /> <value unit="mmol/L" xsi:type="PQ" value="16" /> <interpretationCode codeSystem="local" code="" /> < referenceRange> <observationRange> <text>21-32</text> </observationRange> </referenceRange> </observation> </component> <component> <observation moodCode="EVN" classCode= "OBS"> <templateId root="2.16.840.1.542086.10.20.22.4.2" /> < id nullFlavor="NA" /> <code codeSystem="local" code="86769-3" displayName="Serum or plasma anion gap determination (moles/volume)" /> <statusCode code="completed" /> <effectiveTime value="" / > <value unit="mmol/L" xsi:type="PQ" value="10" /> < referenceRange> <observationRange> <text>5-14</text> </observationRange> </referenceRange> </observation> </component> <component> <observation moodCode="EVN" classCode= "OBS"> <templateId root="2.16.840.1.618234.10.20.22.4.2" /> < id nullFlavor="NA" /> <code codeSystem="local" code="3094-0" displayName="Serum or plasma urea nitrogen measurement (mass/volume)" /> <statusCode code="completed" /> <effectiveTime value="115734297438" /> <value unit="mg/dL" xsi:type="PQ" value="8" /> < referenceRange> <observationRange> <text>7-18</text> </observationRange> </referenceRange> </observation> </component> <component> <observation moodCode="EVN" classCode= "OBS"> <templateId root="2.16.840.1.660426.10..22.4.2" /> < id nullFlavor="NA" /> <code codeSystem="local" code="2160-0" displayName="Serum or plasma creatinine measurement (mass/volume)" /> < statusCode code="completed" /> <effectiveTime value="471529246740" /> <value unit="mg/dL" xsi:type="PQ" value="0.62" /> < referenceRange> <observationRange> <text>0.60-1.30</text > </observationRange> </referenceRange> </observation > </component> <component> <observation moodCode="EVN" classCode="OBS"> <templateId root="216.840.1.282947.10..22.4.2" /> <id nullFlavor="NA" /> <code codeSystem="local" code="3097-3" displayName="Serum or plasma urea nitrogen/creatinine mass ratio" /> < statusCode code="completed" /> <effectiveTime value="922972532200" /> <value unit="" xsi:type="PQ" value="13" /> <referenceRange> <observationRange> <text>NRG</text> </ observationRange> </referenceRange> </observation> </ component> <component> <observation moodCode="EVN" classCode="OBS"> <templateId root="216.840.1.744586.10.20.22.4.2" /> <id nullFlavor="NA" /> <code codeSystem="local" code="25024-3" displayName= "Serum or plasma creatinine measurement with calculation of estimated glomerular filtration rate" /> <statusCode code="completed" /> <effectiveTime value="212804056957" /> <value unit="" xsi:type="PQ" value=">" /> <referenceRange> <observationRange> <text>NRG</text> </observationRange> </referenceRange > </observation> </component> <component> <observation moodCode="EVN" classCode="OBS"> <templateId root= "16.840.1.002558.10..22.4.2" /> <id nullFlavor="NA" /> < code codeSystem="local" code="2345-7" displayName="Serum or plasma glucose measurement (mass/volume)" /> <statusCode code="completed" /> <effectiveTime value="006052873303" /> <value unit="mg/dL" xsi:type="PQ " value="89" /> <referenceRange> <observationRange> <text>70-105</text> </observationRange> </ referenceRange> </observation> </component> <component> <observation moodCode="EVN" classCode="OBS"> <templateId root= "216.840.1.433523.10.20.22.4.2" /> <id nullFlavor="NA" /> < code codeSystem="local" code="87541-2" displayName="Serum or plasma calcium measurement (mass/volume)" /> <statusCode code="completed" /> <effectiveTime value="388245091492" /> <value unit="mg/dL" xsi:type="PQ " value="8.6" /> <referenceRange> <observationRange> <text>8.5-10.1</text> </observationRange> </ referenceRange> </observation> </component> <component> <observation moodCode="EVN" classCode="OBS"> <templateId root= "2.16.840.1.975783.10.20.22.4.2" /> <id nullFlavor="NA" /> < code codeSystem="local" code="1974-05" displayName="Serum or plasma total bilirubin measurement (mass/volume)" /> <statusCode code="completed" / > <effectiveTime value="143254420562" /> <value unit="mg/dL" xsi:type="PQ" value="0.3" /> <referenceRange> < observationRange> <text>0.1-1.0</text> </ observationRange> </referenceRange> </observation> </ component> <component> <observation moodCode="EVN" classCode="OBS"> <templateId root="2.16.840.1.886889.10.20.22.4.2" /> <id nullFlavor="NA" /> <code codeSystem="local" code="6768-6" displayName= "Serum or plasma alkaline phosphatase measurement (enzymatic activity/volume)" / > <statusCode code="completed" /> <effectiveTime value= "394253494102" /> <value unit="U/L" xsi:type="PQ" value="44" /> <referenceRange> <observationRange> <text>40-136</ text> </observationRange> </referenceRange> </ observation> </component> <component> <observation moodCode= "EVN" classCode="OBS"> <templateId root="2.16.840.1.741889.10.20.22.4.2 " /> <id nullFlavor="NA" /> <code codeSystem="local" code= "1919-11" displayName="Serum or plasma aspartate aminotransferase measurement ( enzymatic activity/volume)" /> <statusCode code="completed" /> <effectiveTime value="" /> <value unit="U/L" xsi:type="PQ " value="12" /> <referenceRange> <observationRange> <text>5-34</text> </observationRange> </referenceRange > </observation> </component> <component> <observation moodCode="EVN" classCode="OBS"> <templateId root= "216.840.1.810068.10..22.4.2" /> <id nullFlavor="NA" /> < code codeSystem="local" code="17405-17" displayName="Serum or plasma alanine aminotransferase measurement (enzymatic activity/volume)" /> < statusCode code="completed" /> <effectiveTime value="" /> <value unit="U/L" xsi:type="PQ" value="12" /> <referenceRange > <observationRange> <text>0-55</text> </ observationRange> </referenceRange> </observation> </ component> <component> <observation moodCode="EVN" classCode="OBS"> <templateId root="216.840.1.464444.10.20.22.4.2" /> <id nullFlavor="NA" /> <code codeSystem="local" code="2885-2" displayName= "Serum or plasma protein measurement (mass/volume)" /> <statusCode code ="completed" /> <effectiveTime value="" /> <value unit="g/dL" xsi:type="PQ" value="5.9" /> <interpretationCode codeSystem ="local" code="" /> <referenceRange> <observationRange> <text>6.4-8.2</text> </observationRange> </ referenceRange> </observation> </component> <component> <observation moodCode="EVN" classCode="OBS"> <templateId root= "16.840.1.031999.10.22.4.2" /> <id nullFlavor="NA" /> < code codeSystem="local" code="175-" displayName="Serum or plasma albumin measurement (mass/volume)" /> <statusCode code="completed" /> <effectiveTime value="327656537834" /> <value unit="g/dL" xsi:type="PQ " value="3.4" /> <referenceRange> <observationRange> <text>3.2-4.5</text> </observationRange> </ referenceRange> </observation> </component> </organizer> </entry > <entry> <organizer moodCode="EVN" classCode="BATTERY"> <templateId root="16.840.1.097412.10..4.1" /> <id nullFlavor="NA" /> <code codeSystem="local" code="2777-" displayName="Serum or plasma phosphate measurement (mass/volume)" /> <statusCode code="completed" /> < component> <observation moodCode="EVN" classCode="OBS"> < templateId root="16.840.1.219306.10..22.4.2" /> <id nullFlavor="NA " /> <code codeSystem="local" code="2777-1" displayName="Serum or plasma phosphate measurement (mass/volume)" /> <statusCode code= "completed" /> <effectiveTime value="656461843192" /> <value unit="mg/dL" xsi:type="PQ" value="3.7" /> <referenceRange> < observationRange> <text>2.3-4.7</text> </ observationRange> </referenceRange> </observation> </ component> </organizer> </entry> <entry> <organizer moodCode="EVN" classCode="BATTERY"> <templateId root="16.840.1.754556.10.20.22.4.1" /> <id nullFlavor="NA" /> <code codeSystem="local" code="00144-6" displayName="Magnesium" /> <statusCode code="completed" /> <component > <observation moodCode="EVN" classCode="OBS"> <templateId root= "216.840.1.226897.10.20.22.4.2" /> <id nullFlavor="NA" /> < code codeSystem="local" code="08080-2" displayName="Magnesium" /> < statusCode code="completed" /> <effectiveTime value="506812692928" /> <value unit="mg/dL" xsi:type="PQ" value="2.1" /> < referenceRange> <observationRange> <text>1.8-2.4</text> </observationRange> </referenceRange> </observation > </component> </organizer> </entry> <entry> <organizer moodCode= "EVN" classCode="BATTERY"> <templateId root="216.840.1.836741.10.20.22.4.1 " /> <id nullFlavor="NA" /> <code codeSystem="local" code="97240-4" displayName="Complete blood count (CBC) with automated white blood cell (WBC) differential" /> <statusCode code="completed" /> <component> < observation moodCode="EVN" classCode="OBS"> <templateId root= "2.16.840.1.277474.10.20.22.4.2" /> <id nullFlavor="NA" /> < code codeSystem="local" code="6690-2" displayName="Blood leukocytes automated count (number/volume)" /> <statusCode code="completed" /> < effectiveTime value="236215706971" /> <value unit="10*3/uL" xsi:type= "PQ" value="10.3" /> <referenceRange> <observationRange> <text>4.3-11.0</text> </observationRange> </ referenceRange> </observation> </component> <component> <observation moodCode="EVN" classCode="OBS"> <templateId root= "2.16.840.1.605492.10..22.4.2" /> <id nullFlavor="NA" /> < code codeSystem="local" code="789-8" displayName="Blood erythrocytes automated count (number/volume)" /> <statusCode code="completed" /> < effectiveTime value="439403494121" /> <value unit="10*6/uL" xsi:type= "PQ" value="4.79" /> <referenceRange> <observationRange> <text>4.35-5.85</text> </observationRange> </ referenceRange> </observation> </component> <component> <observation moodCode="EVN" classCode="OBS"> <templateId root= "2.16.840.1.403375.10..22.4.2" /> <id nullFlavor="NA" /> < code codeSystem="local" code="67747-1" displayName="Venous blood hemoglobin measurement (mass/volume)" /> <statusCode code="completed" /> <effectiveTime value="391948148595" /> <value unit="g/dL" xsi:type="PQ " value="11.5" /> <referenceRange> <observationRange> <text>11.5-16.0</text> </observationRange> </ referenceRange> </observation> </component> <component> <observation moodCode="EVN" classCode="OBS"> <templateId root= "2.16.840.1.666731.10..22.4.2" /> <id nullFlavor="NA" /> < code codeSystem="local" code="29745-6" displayName="Blood hematocrit (volume fraction)" /> <statusCode code="completed" /> <effectiveTime value="923578187264" /> <value unit="%" xsi:type="PQ" value="37" / > <referenceRange> <observationRange> <text>35- 52</text> </observationRange> </referenceRange> </ observation> </component> <component> <observation moodCode= "EVN" classCode="OBS"> <templateId root="2.16.840.1.471773.10..22.4.2 " /> <id nullFlavor="NA" /> <code codeSystem="local" code="787 -2" displayName="Automated erythrocyte mean corpuscular volume" /> < statusCode code="completed" /> <effectiveTime value="470535317989" /> <value unit="[foz_us]" xsi:type="PQ" value="77" /> < interpretationCode codeSystem="local" code="" /> <referenceRange> <observationRange> <text>80-99</text> </ observationRange> </referenceRange> </observation> </ component> <component> <observation moodCode="EVN" classCode="OBS"> <templateId root="2.16.840.1.596374.20.22.4.2" /> <id nullFlavor="NA" /> <code codeSystem="local" code="785-6" displayName= "Automated erythrocyte mean corpuscular hemoglobin (mass per erythrocyte)" /> <statusCode code="completed" /> <effectiveTime value= "359699190934" /> <value unit="pg" xsi:type="PQ" value="24" /> <interpretationCode codeSystem="local" code="" /> <referenceRange> <observationRange> <text>25-34</text> </ observationRange> </referenceRange> </observation> </ component> <component> <observation moodCode="EVN" classCode="OBS"> <templateId root="2.16.840.1.812587.10..22.4.2" /> <id nullFlavor="NA" /> <code codeSystem="local" code="786-4" displayName= "Automated erythrocyte mean corpuscular hemoglobin concentration measurement ( mass/volume)" /> <statusCode code="completed" /> < effectiveTime value="191374720330" /> <value unit="g/dL" xsi:type="PQ" value="31" /> <interpretationCode codeSystem="local" code="" /> <referenceRange> <observationRange> <text>32-36</ text> </observationRange> </referenceRange> </ observation> </component> <component> <observation moodCode= "EVN" classCode="OBS"> <templateId root="216.840.1.916414.10.20.22.4.2 " /> <id nullFlavor="NA" /> <code codeSystem="local" code="788 -0" displayName="Automated erythrocyte distribution width ratio" /> < statusCode code="completed" /> <effectiveTime value="583944627940" /> <value unit="%" xsi:type="PQ" value="17.3" /> < interpretationCode codeSystem="local" code="" /> <referenceRange> <observationRange> <text>10.0-14.5</text> </ observationRange> </referenceRange> </observation> </ component> <component> <observation moodCode="EVN" classCode="OBS"> <templateId root="216.840.1.051045.10.20.22.4.2" /> <id nullFlavor="NA" /> <code codeSystem="local" code="777-3" displayName= "Automated blood platelet count (count/volume)" /> <statusCode code= "completed" /> <effectiveTime value="133233530846" /> <value unit="10*3/uL" xsi:type="PQ" value="456" /> <interpretationCode codeSystem="local" code="" /> <referenceRange> < observationRange> <text>130-400</text> </ observationRange> </referenceRange> </observation> </ component> <component> <observation moodCode="EVN" classCode="OBS"> <templateId root="2.16.840.1.825839.10.2022.4.2" /> <id nullFlavor="NA" /> <code codeSystem="local" code="24739-5" displayName= "Automated blood platelet mean volume measurement" /> <statusCode code= "completed" /> <effectiveTime value="283818204767" /> <value unit="[foz_us]" xsi:type="PQ" value="9.6" /> <referenceRange> <observationRange> <text>7.4-10.4</text> </ observationRange> </referenceRange> </observation> </ component> <component> <observation moodCode="EVN" classCode="OBS"> <templateId root="2.16.840.1.745344.10.20.22.4.2" /> <id nullFlavor="NA" /> <code codeSystem="local" code="770-8" displayName= "Automated blood neutrophils/100 leukocytes" /> <statusCode code= "completed" /> <effectiveTime value="010023888752" /> <value unit="%" xsi:type="PQ" value="69" /> <referenceRange> < observationRange> <text>42-75</text> </observationRange > </referenceRange> </observation> </component> < component> <observation moodCode="EVN" classCode="OBS"> < templateId root="2.16.840.1.836230.10.20.22.4.2" /> <id nullFlavor="NA " /> <code codeSystem="local" code="736-9" displayName="Automated blood lymphocytes/100 leukocytes" /> <statusCode code="completed" /> <effectiveTime value="537253251858" /> <value unit="%" xsi: type="PQ" value="23" /> <referenceRange> <observationRange> <text>12-44</text> </observationRange> </ referenceRange> </observation> </component> <component> <observation moodCode="EVN" classCode="OBS"> <templateId root= "2.16.840.1.049479.10.20.22.4.2" /> <id nullFlavor="NA" /> < code codeSystem="local" code="06000-5" displayName="Blood monocytes/100 leukocytes" /> <statusCode code="completed" /> <effectiveTime value="507252150347" /> <value unit="%" xsi:type="PQ" value="5" /> <referenceRange> <observationRange> <text>0-12 </text> </observationRange> </referenceRange> </ observation> </component> <component> <observation moodCode= "EVN" classCode="OBS"> <templateId root="2.16.840.1.768999.10..22.4.2 " /> <id nullFlavor="NA" /> <code codeSystem="local" code="713 -8" displayName="Automated blood eosinophils/100 leukocytes" /> < statusCode code="completed" /> <effectiveTime value="819273494112" /> <value unit="%" xsi:type="PQ" value="2" /> <referenceRange > <observationRange> <text>0-10</text> </ observationRange> </referenceRange> </observation> </ component> <component> <observation moodCode="EVN" classCode="OBS"> <templateId root="2.16.840.1.126105.01.28.22.4.2" /> <id nullFlavor="NA" /> <code codeSystem="local" code="706-2" displayName= "Automated blood basophils/100 leukocytes" /> <statusCode code= "completed" /> <effectiveTime value="038945086705" /> <value unit="%" xsi:type="PQ" value="0" /> <referenceRange> < observationRange> <text>0-10</text> </observationRange> </referenceRange> </observation> </component> < component> <observation moodCode="EVN" classCode="OBS"> < templateId root="2.16.840.1.396107.10..22.4.2" /> <id nullFlavor="NA " /> <code codeSystem="local" code="751-8" displayName="Blood neutrophils automated count (number/volume)" /> <statusCode code= "completed" /> <effectiveTime value="163804293135" /> <value unit="10*3" xsi:type="PQ" value="7.1" /> <referenceRange> < observationRange> <text>1.8-7.8</text> </ observationRange> </referenceRange> </observation> </ component> <component> <observation moodCode="EVN" classCode="OBS"> <templateId root="216.840.1.125577.10.2022.4.2" /> <id nullFlavor="NA" /> <code codeSystem="local" code="731-0" displayName= "Blood lymphocytes automated count (number/volume)" /> <statusCode code ="completed" /> <effectiveTime value="839282693346" /> <value unit="10*3" xsi:type="PQ" value="2.4" /> <referenceRange> < observationRange> <text>1.0-4.0</text> </ observationRange> </referenceRange> </observation> </ component> <component> <observation moodCode="EVN" classCode="OBS"> <templateId root="216.840.1.114914.10.4.2" /> <id nullFlavor="NA" /> <code codeSystem="local" code="742-7" displayName= "Blood monocytes automated count (number/volume)" /> <statusCode code= "completed" /> <effectiveTime value="166730001258" /> <value unit="10*3" xsi:type="PQ" value="0.6" /> <referenceRange> < observationRange> <text>0.0-1.0</text> </ observationRange> </referenceRange> </observation> </ component> <component> <observation moodCode="EVN" classCode="OBS"> <templateId root="216.840.1.313155.10..4.2" /> <id nullFlavor="NA" /> <code codeSystem="local" code="711-2" displayName= "Automated eosinophil count" /> <statusCode code="completed" /> <effectiveTime value="421904119614" /> <value unit="10*3/uL" xsi: type="PQ" value="0.3" /> <referenceRange> <observationRange > <text>0.0-0.3</text> </observationRange> </ referenceRange> </observation> </component> <component> <observation moodCode="EVN" classCode="OBS"> <templateId root= "16.840.1.372013.01.28.22.4.2" /> <id nullFlavor="NA" /> < code codeSystem="local" code="704-7" displayName="Automated blood basophil count (count/volume)" /> <statusCode code="completed" /> < effectiveTime value="166518827737" /> <value unit="10*3/uL" xsi:type= "PQ" value="0.0" /> <referenceRange> <observationRange> <text>0.0-0.1</text> </observationRange> </ referenceRange> </observation> </component> </organizer> </entry > <entry> <organizer moodCode="EVN" classCode="BATTERY"> <templateId root="05.27.840.1.111288.01.28.22.4.1" /> <id nullFlavor="NA" /> <code codeSystem="local" code="66173-2" displayName="Comprehensive metabolic panel" / > <statusCode code="completed" /> <component> <observation moodCode="EVN" classCode="OBS"> <templateId root= "05.27.840.1.751514.01.28.22.4.2" /> <id nullFlavor="NA" /> < code codeSystem="local" code="2951-2" displayName="Serum or plasma sodium measurement (moles/volume)" /> <statusCode code="completed" /> <effectiveTime value="646798066433" /> <value unit="mmol/L" xsi:type= "PQ" value="139" /> <referenceRange> <observationRange> <text>135-145</text> </observationRange> </ referenceRange> </observation> </component> <component> <observation moodCode="EVN" classCode="OBS"> <templateId root= "2.16.840.1.907685.10..4.2" /> <id nullFlavor="NA" /> < code codeSystem="local" code="2823-3" displayName="Serum or plasma potassium measurement (moles/volume)" /> <statusCode code="completed" /> <effectiveTime value="064575723030" /> <value unit="mmol/L" xsi:type= "PQ" value="4.0" /> <referenceRange> <observationRange> <text>3.6-5.0</text> </observationRange> </ referenceRange> </observation> </component> <component> <observation moodCode="EVN" classCode="OBS"> <templateId root= "2.16.840.1.820559.10..4.2" /> <id nullFlavor="NA" /> < code codeSystem="local" code="2075-0" displayName="Serum or plasma chloride measurement (moles/volume)" /> <statusCode code="completed" /> <effectiveTime value="654336501545" /> <value unit="mmol/L" xsi:type= "PQ" value="107" /> <referenceRange> <observationRange> <text>98-107</text> </observationRange> </ referenceRange> </observation> </component> <component> <observation moodCode="EVN" classCode="OBS"> <templateId root= "2.16.840.1.010090.10..22.4.2" /> <id nullFlavor="NA" /> < code codeSystem="local" code="2027-12" displayName="Carbon dioxide" /> < statusCode code="completed" /> <effectiveTime value="586288407480" /> <value unit="mmol/L" xsi:type="PQ" value="25" /> < referenceRange> <observationRange> <text>21-32</text> </observationRange> </referenceRange> </observation> </component> <component> <observation moodCode="EVN" classCode= "OBS"> <templateId root="16.840.1.462494.10..4.2" /> < id nullFlavor="NA" /> <code codeSystem="local" code="82772-8" displayName="Serum or plasma anion gap determination (moles/volume)" /> <statusCode code="completed" /> <effectiveTime value="675434130665" / > <value unit="mmol/L" xsi:type="PQ" value="7" /> < referenceRange> <observationRange> <text>5-14</text> </observationRange> </referenceRange> </observation> </component> <component> <observation moodCode="EVN" classCode= "OBS"> <templateId root="2.16.840.1.876158.10..22.4.2" /> < id nullFlavor="NA" /> <code codeSystem="local" code="3094-0" displayName="Serum or plasma urea nitrogen measurement (mass/volume)" /> <statusCode code="completed" /> <effectiveTime value="251673289527" /> <value unit="mg/dL" xsi:type="PQ" value="8" /> < referenceRange> <observationRange> <text>7-18</text> </observationRange> </referenceRange> </observation> </component> <component> <observation moodCode="EVN" classCode= "OBS"> <templateId root="2.16.840.1.080051.10..22.4.2" /> < id nullFlavor="NA" /> <code codeSystem="local" code="2160-0" displayName="Serum or plasma creatinine measurement (mass/volume)" /> < statusCode code="completed" /> <effectiveTime value="294961673354" /> <value unit="mg/dL" xsi:type="PQ" value="0.75" /> < referenceRange> <observationRange> <text>0.60-1.30</text > </observationRange> </referenceRange> </observation > </component> <component> <observation moodCode="EVN" classCode="OBS"> <templateId root="2.16.840.1.906128.10..22.4.2" /> <id nullFlavor="NA" /> <code codeSystem="local" code="3097-3" displayName="Serum or plasma urea nitrogen/creatinine mass ratio" /> < statusCode code="completed" /> <effectiveTime value="253729419972" /> <value unit="" xsi:type="PQ" value="11" /> <referenceRange> <observationRange> <text>NRG</text> </ observationRange> </referenceRange> </observation> </ component> <component> <observation moodCode="EVN" classCode="OBS"> <templateId root="2.16.840.1.899959.10..22.4.2" /> <id nullFlavor="NA" /> <code codeSystem="local" code="33889-3" displayName= "Serum or plasma creatinine measurement with calculation of estimated glomerular filtration rate" /> <statusCode code="completed" /> <effectiveTime value="897841801116" /> <value unit="" xsi:type="PQ" value=">" /> <referenceRange> <observationRange> <text>NRG</text> </observationRange> </referenceRange > </observation> </component> <component> <observation moodCode="EVN" classCode="OBS"> <templateId root= "2.16.840.1.181659.10.20.22.4.2" /> <id nullFlavor="NA" /> < code codeSystem="local" code="2345-7" displayName="Serum or plasma glucose measurement (mass/volume)" /> <statusCode code="completed" /> <effectiveTime value="750122636196" /> <value unit="mg/dL" xsi:type="PQ " value="90" /> <referenceRange> <observationRange> <text>70-105</text> </observationRange> </ referenceRange> </observation> </component> <component> <observation moodCode="EVN" classCode="OBS"> <templateId root= "2.16.840.1.651336.10.20.22.4.2" /> <id nullFlavor="NA" /> < code codeSystem="local" code="19839-0" displayName="Serum or plasma calcium measurement (mass/volume)" /> <statusCode code="completed" /> <effectiveTime value="887092278304" /> <value unit="mg/dL" xsi:type="PQ " value="9.6" /> <referenceRange> <observationRange> <text>8.5-10.1</text> </observationRange> </ referenceRange> </observation> </component> <component> <observation moodCode="EVN" classCode="OBS"> <templateId root= "2.16.840.1.672027.10.20.22.4.2" /> <id nullFlavor="NA" /> < code codeSystem="local" code="1974-05" displayName="Serum or plasma total bilirubin measurement (mass/volume)" /> <statusCode code="completed" / > <effectiveTime value="220957313534" /> <value unit="mg/dL" xsi:type="PQ" value="0.2" /> <referenceRange> < observationRange> <text>0.1-1.0</text> </ observationRange> </referenceRange> </observation> </ component> <component> <observation moodCode="EVN" classCode="OBS"> <templateId root="2.16.840.1.645569.10...4.2" /> <id nullFlavor="NA" /> <code codeSystem="local" code="67686" displayName= "Serum or plasma alkaline phosphatase measurement (enzymatic activity/volume)" / > <statusCode code="completed" /> <effectiveTime value= "143256009539" /> <value unit="U/L" xsi:type="PQ" value="50" /> <referenceRange> <observationRange> <text>40-136</ text> </observationRange> </referenceRange> </ observation> </component> <component> <observation moodCode= "EVN" classCode="OBS"> <templateId root="2.16.840.1.255778.10.20.22.4.2 " /> <id nullFlavor="NA" /> <code codeSystem="local" code= "192" displayName="Serum or plasma aspartate aminotransferase measurement ( enzymatic activity/volume)" /> <statusCode code="completed" /> <effectiveTime value="322370408376" /> <value unit="U/L" xsi:type="PQ " value="12" /> <referenceRange> <observationRange> <text>5-34</text> </observationRange> </referenceRange > </observation> </component> <component> <observation moodCode="EVN" classCode="OBS"> <templateId root= "2.16.840.1.909957.10..22.4.2" /> <id nullFlavor="NA" /> < code codeSystem="local" code="1742-6" displayName="Serum or plasma alanine aminotransferase measurement (enzymatic activity/volume)" /> < statusCode code="completed" /> <effectiveTime value="827683761651" /> <value unit="U/L" xsi:type="PQ" value="11" /> <referenceRange > <observationRange> <text>0-55</text> </ observationRange> </referenceRange> </observation> </ component> <component> <observation moodCode="EVN" classCode="OBS"> <templateId root="2.16.840.1.210835.10.22.4.2" /> <id nullFlavor="NA" /> <code codeSystem="local" code="2885-2" displayName= "Serum or plasma protein measurement (mass/volume)" /> <statusCode code ="completed" /> <effectiveTime value="839707122739" /> <value unit="g/dL" xsi:type="PQ" value="7.4" /> <referenceRange> < observationRange> <text>6.4-8.2</text> </ observationRange> </referenceRange> </observation> </ component> <component> <observation moodCode="EVN" classCode="OBS"> <templateId root="2.16.840.1.205009.10.2022.4.2" /> <id nullFlavor="NA" /> <code codeSystem="local" code="1750-10" displayName= "Serum or plasma albumin measurement (mass/volume)" /> <statusCode code ="completed" /> <effectiveTime value="519850639605" /> <value unit="g/dL" xsi:type="PQ" value="4.1" /> <referenceRange> < observationRange> <text>3.2-4.5</text> </ observationRange> </referenceRange> </observation> </ component> </organizer> </entry> <entry> <organizer moodCode="EVN" classCode="BATTERY"> <templateId root="2.16.840.1.709781.10.20.22.4.1" /> <id nullFlavor="NA" /> <code codeSystem="local" code="1987-08" displayName="Serum or plasma C reactive protein measurement (mass/volume)" /> <statusCode code="completed" /> <component> <observation moodCode="EVN" classCode="OBS"> <templateId root= "2.16.840.1.570494.10.20.22.4.2" /> <id nullFlavor="NA" /> < code codeSystem="local" code="1987-08" displayName="Serum or plasma C reactive protein measurement (mass/volume)" /> <statusCode code="completed" /> <effectiveTime value="008599572049" /> <value unit="mg/dL" xsi :type="PQ" value="1.27" /> <interpretationCode codeSystem="local" code= "" /> <referenceRange> <observationRange> < text>0.00-0.50</text> </observationRange> </referenceRange> </observation> </component> </organizer> </entry> <entry> < organizer moodCode="EVN" classCode="BATTERY"> <templateId root= "05.27.840.1.344153.10..22.4.1" /> <id nullFlavor="NA" /> <code codeSystem="local" code="34268-7" displayName="Complete urinalysis with reflex to culture" /> <statusCode code="completed" /> <component> < observation moodCode="EVN" classCode="OBS"> <templateId root= "05.27.840.1.997493.10..4.2" /> <id nullFlavor="NA" /> < code codeSystem="local" code="5778-6" displayName="Urine color determination" / > <statusCode code="completed" /> <effectiveTime value= "737006171659" /> <value unit="" xsi:type="PQ" value="YELLOW" /> <referenceRange> <observationRange> <text>NRG</text > </observationRange> </referenceRange> </observation > </component> <component> <observation moodCode="EVN" classCode="OBS"> <templateId root="05.27.840.1.260846.10..4.2" /> <id nullFlavor="NA" /> <code codeSystem="local" code="11627-9 " displayName="Urine clarity determination" /> <statusCode code= "completed" /> <effectiveTime value="500215995227" /> <value unit="" xsi:type="PQ" value="CLEAR" /> <referenceRange> < observationRange> <text>NRG</text> </observationRange> </referenceRange> </observation> </component> < component> <observation moodCode="EVN" classCode="OBS"> < templateId root="05.27.840.1.988104.10..4.2" /> <id nullFlavor="NA " /> <code codeSystem="local" code="5803-2" displayName="Urine pH measurement by test strip" /> <statusCode code="completed" /> <effectiveTime value="111394189946" /> <value unit="" xsi:type="PQ" value="6" /> <referenceRange> <observationRange> <text>5-9</text> </observationRange> </referenceRange> </observation> </component> <component> <observation moodCode="EVN" classCode="OBS"> <templateId root= "2.16.840.1.258742.10..22.4.2" /> <id nullFlavor="NA" /> < code codeSystem="local" code="5811-5" displayName="Specific gravity of urine by test strip" /> <statusCode code="completed" /> <effectiveTime value="428630948067" /> <value unit="" xsi:type="PQ" value="1.020" /> <referenceRange> <observationRange> <text>1.016 -1.022</text> </observationRange> </referenceRange> < /observation> </component> <component> <observation moodCode= "EVN" classCode="OBS"> <templateId root="2.16.840.1.962695.10..22.4.2 " /> <id nullFlavor="NA" /> <code codeSystem="local" code= "08664-4" displayName="Urine protein assay by test strip, semi-quantitative" /> <statusCode code="completed" /> <effectiveTime value= "893709778158" /> <value unit="" xsi:type="PQ" value="NEGATIVE" /> <referenceRange> <observationRange> <text>NEGATIVE </text> </observationRange> </referenceRange> </ observation> </component> <component> <observation moodCode= "EVN" classCode="OBS"> <templateId root="05.27.840.1.303283.10.20.22.4.2 " /> <id nullFlavor="NA" /> <code codeSystem="local" code= "92505-3" displayName="Urine glucose detection by automated test strip" /> <statusCode code="completed" /> <effectiveTime value=" " /> <value unit="" xsi:type="PQ" value="NEGATIVE" /> < referenceRange> <observationRange> <text>NEGATIVE</text > </observationRange> </referenceRange> </observation > </component> <component> <observation moodCode="EVN" classCode="OBS"> <templateId root="05.27.840.1.968689.10..22.4.2" /> <id nullFlavor="NA" /> <code codeSystem="local" code="89030-2 " displayName="Erythrocytes detection in urine sediment by light microscopy" /> <statusCode code="completed" /> <effectiveTime value= "" /> <value unit="" xsi:type="PQ" value="NEGATIVE" /> <referenceRange> <observationRange> <text>NEGATIVE </text> </observationRange> </referenceRange> </ observation> </component> <component> <observation moodCode= "EVN" classCode="OBS"> <templateId root="05.27.840.1.765082.10.20.22.4.2 " /> <id nullFlavor="NA" /> <code codeSystem="local" code= "26093-6" displayName="Urine ketones detection by automated test strip" /> <statusCode code="completed" /> <effectiveTime value="736386653398 " /> <value unit="" xsi:type="PQ" value="1+" /> < interpretationCode codeSystem="local" code="*" /> <referenceRange> <observationRange> <text>NEGATIVE</text> </ observationRange> </referenceRange> </observation> </ component> <component> <observation moodCode="EVN" classCode="OBS"> <templateId root="216.840.1.584530.10.20.22.4.2" /> <id nullFlavor="NA" /> <code codeSystem="local" code="5802-4" displayName= "Urine nitrite detection by test strip" /> <statusCode code="completed " /> <effectiveTime value="862745672987" /> <value unit="" xsi :type="PQ" value="NEGATIVE" /> <referenceRange> < observationRange> <text>NEGATIVE</text> </ observationRange> </referenceRange> </observation> </ component> <component> <observation moodCode="EVN" classCode="OBS"> <templateId root="05.27.840.1.263315.10..4.2" /> <id nullFlavor="NA" /> <code codeSystem="local" code="5770-3" displayName= "Urine total bilirubin detection by test strip" /> <statusCode code= "completed" /> <effectiveTime value="128760752521" /> <value unit="" xsi:type="PQ" value="NEGATIVE" /> <referenceRange> < observationRange> <text>NEGATIVE</text> </ observationRange> </referenceRange> </observation> </ component> <component> <observation moodCode="EVN" classCode="OBS"> <templateId root="05.27.840.1.686009.10.20.4.2" /> <id nullFlavor="NA" /> <code codeSystem="local" code="46266-9" displayName= "Urine urobilinogen measurement by automated test strip (mass/volume)" /> <statusCode code="completed" /> <effectiveTime value="505401668991 " /> <value unit="" xsi:type="PQ" value="NORMAL" /> < referenceRange> <observationRange> <text>NORMAL</text> </observationRange> </referenceRange> </observation> </component> <component> <observation moodCode="EVN" classCode ="OBS"> <templateId root="05.27.840.1.582033.10.20.22.4.2" /> < id nullFlavor="NA" /> <code codeSystem="local" code="5799-2" displayName="Urine leukocyte esterase detection by dipstick" /> < statusCode code="completed" /> <effectiveTime value="312656394327" /> <value unit="" xsi:type="PQ" value="1+" /> < interpretationCode codeSystem="local" code="*" /> <referenceRange> <observationRange> <text>NEGATIVE</text> </ observationRange> </referenceRange> </observation> </ component> <component> <observation moodCode="EVN" classCode="OBS"> <templateId root="05.27.840.1.228128.10..22.4.2" /> <id nullFlavor="NA" /> <code codeSystem="local" code="57421-7" displayName= "Automated urine sediment erythrocyte count by microscopy (number/high power field)" /> <statusCode code="completed" /> <effectiveTime value="699536336892" /> <value unit="" xsi:type="PQ" value="NONE" /> <referenceRange> <observationRange> <text>NRG</ text> </observationRange> </referenceRange> </ observation> </component> <component> <observation moodCode= "EVN" classCode="OBS"> <templateId root="840.1.061744.10..22.4.2 " /> <id nullFlavor="NA" /> <code codeSystem="local" code= "5821-4" displayName="Automated urine sediment leukocyte count by microscopy ( number/high power field)" /> <statusCode code="completed" /> < effectiveTime value="801247547507" /> <value unit="[HPF]" xsi:type="PQ " value="" /> <referenceRange> <observationRange> <text>NRG</text> </observationRange> </referenceRange> </observation> </component> <component> <observation moodCode="EVN" classCode="OBS"> <templateId root= "216.840.1.793680.10..22.4.2" /> <id nullFlavor="NA" /> < code codeSystem="local" code="91168-0" displayName="Bacteria detection in urine sediment by light microscopy" /> <statusCode code="completed" /> <effectiveTime value="702487404661" /> <value unit="" xsi:type="PQ " value="TRACE" /> <referenceRange> <observationRange> <text>NRG</text> </observationRange> </ referenceRange> </observation> </component> <component> <observation moodCode="EVN" classCode="OBS"> <templateId root= "05.27.840.1.694624.10..22.4.2" /> <id nullFlavor="NA" /> < code codeSystem="local" code="50636-4" displayName="Squamous epithelial cells detection in urine sediment by light microscopy" /> <statusCode code= "completed" /> <effectiveTime value="700932343033" /> <value unit="" xsi:type="PQ" value="5-10" /> <referenceRange> < observationRange> <text>NRG</text> </observationRange> </referenceRange> </observation> </component> < component> <observation moodCode="EVN" classCode="OBS"> < templateId root="216.840.1.444292.10..22.4.2" /> <id nullFlavor="NA " /> <code codeSystem="local" code="46882-9" displayName="Crystals detection in urine sediment by light microscopy" /> <statusCode code= "completed" /> <effectiveTime value="726787196191" /> <value unit="" xsi:type="PQ" value="NONE" /> <referenceRange> < observationRange> <text>NRG</text> </observationRange> </referenceRange> </observation> </component> < component> <observation moodCode="EVN" classCode="OBS"> < templateId root="05.27.840.1.257310.10..4.2" /> <id nullFlavor="NA " /> <code codeSystem="local" code="28089-2" displayName="Casts detection in urine sediment by light microscopy" /> <statusCode code= "completed" /> <effectiveTime value="850286790035" /> <value unit="" xsi:type="PQ" value="NONE" /> <referenceRange> < observationRange> <text>NRG</text> </observationRange> </referenceRange> </observation> </component> < component> <observation moodCode="EVN" classCode="OBS"> < templateId root="216.840.1.896913.10...4.2" /> <id nullFlavor="NA " /> <code codeSystem="local" code="8247-9" displayName="Mucus detection in urine sediment by light microscopy" /> <statusCode code= "completed" /> <effectiveTime value="879449094910" /> <value unit="" xsi:type="PQ" value="SMALL" /> <interpretationCode codeSystem= "local" code="*" /> <referenceRange> <observationRange> <text>NRG</text> </observationRange> </ referenceRange> </observation> </component> <component> <observation moodCode="EVN" classCode="OBS"> <templateId root= "05.27.840.1.280318.01.28.22.4.2" /> <id nullFlavor="NA" /> < code codeSystem="local" code="94076-0" displayName="Complete urinalysis with reflex to culture" /> <statusCode code="completed" /> < effectiveTime value="848978075707" /> <value unit="" xsi:type="PQ" value="NO" /> <referenceRange> <observationRange> <text>NRG</text> </observationRange> </referenceRange> </observation> </component> </organizer> </entry> <entry> < organizer moodCode="EVN" classCode="BATTERY"> <templateId root= "05.27.840.1.921024.01.28.22.4.1" /> <id nullFlavor="NA" /> <code codeSystem="local" code="97690-7" displayName="Urine drug screening test" /> <statusCode code="completed" /> <component> <observation moodCode ="EVN" classCode="OBS"> <templateId root= "05.27.840.1.489748.10..4.2" /> <id nullFlavor="NA" /> < code codeSystem="local" code="17555-5" displayName="Urine phencyclidine detection by screening method" /> <statusCode code="completed" /> <effectiveTime value="622297974948" /> <value unit="" xsi:type="PQ " value="NEGATIVE" /> <referenceRange> <observationRange> <text>NEGATIVE</text> </observationRange> </ referenceRange> </observation> </component> <component> <observation moodCode="EVN" classCode="OBS"> <templateId root= "16.840.1.879110.10.20.22.4.2" /> <id nullFlavor="NA" /> < code codeSystem="local" code="01891-0" displayName="Urine benzodiazepines detection by screening method" /> <statusCode code="completed" /> <effectiveTime value="810751695886" /> <value unit="" xsi:type="PQ " value="NEGATIVE" /> <referenceRange> <observationRange> <text>NEGATIVE</text> </observationRange> </ referenceRange> </observation> </component> <component> <observation moodCode="EVN" classCode="OBS"> <templateId root= "05.27.840.1.544905.10.2022.4.2" /> <id nullFlavor="NA" /> < code codeSystem="local" code="3397-7" displayName="Urine cocaine detection" /> <statusCode code="completed" /> <effectiveTime value= "443488760964" /> <value unit="" xsi:type="PQ" value="NEGATIVE" /> <referenceRange> <observationRange> <text>NEGATIVE </text> </observationRange> </referenceRange> </ observation> </component> <component> <observation moodCode= "EVN" classCode="OBS"> <templateId root="05.27.840.1.660547.10.2022.4.2 " /> <id nullFlavor="NA" /> <code codeSystem="local" code= "29920-9" displayName="Urine amphetamines detection by screening method" /> <statusCode code="completed" /> <effectiveTime value= "257685763933" /> <value unit="" xsi:type="PQ" value="NEGATIVE" /> <referenceRange> <observationRange> <text>NEGATIVE </text> </observationRange> </referenceRange> </ observation> </component> <component> <observation moodCode= "EVN" classCode="OBS"> <templateId root="216.840.1.488924.10.22.4.2 " /> <id nullFlavor="NA" /> <code codeSystem="local" code= "24942-5" displayName="Urine methamphetamine detection by screening method" /> <statusCode code="completed" /> <effectiveTime value= "236009956073" /> <value unit="" xsi:type="PQ" value="NEGATIVE" /> <referenceRange> <observationRange> <text>NEGATIVE </text> </observationRange> </referenceRange> </ observation> </component> <component> <observation moodCode= "EVN" classCode="OBS"> <templateId root="05.27.840.1.139275.10.22.4.2 " /> <id nullFlavor="NA" /> <code codeSystem="local" code= "23919-0" displayName="Urine cannabinoids detection by screening method" /> <statusCode code="completed" /> <effectiveTime value= "074233208387" /> <value unit="" xsi:type="PQ" value="NEGATIVE" /> <referenceRange> <observationRange> <text>NEGATIVE </text> </observationRange> </referenceRange> </ observation> </component> <component> <observation moodCode= "EVN" classCode="OBS"> <templateId root="216.840.1.845430.10.20.22.4.2 " /> <id nullFlavor="NA" /> <code codeSystem="local" code= "50363-6" displayName="Urine opiates detection by screening method" /> <statusCode code="completed" /> <effectiveTime value="418986033350" /> <value unit="" xsi:type="PQ" value="NEGATIVE" /> < referenceRange> <observationRange> <text>NEGATIVE</text > </observationRange> </referenceRange> </observation > </component> <component> <observation moodCode="EVN" classCode="OBS"> <templateId root="216.840.1.705266.10.20.22.4.2" /> <id nullFlavor="NA" /> <code codeSystem="local" code="3377-9" displayName="Urine barbiturates detection" /> <statusCode code= "completed" /> <effectiveTime value="524287016761" /> <value unit="" xsi:type="PQ" value="NEGATIVE" /> <referenceRange> < observationRange> <text>NEGATIVE</text> </ observationRange> </referenceRange> </observation> </ component> <component> <observation moodCode="EVN" classCode="OBS"> <templateId root="216.840.1.910885.10.20.22.4.2" /> <id nullFlavor="NA" /> <code codeSystem="local" code="64581-4" displayName= "Screening urine tricyclic antidepressants detection" /> <statusCode code="completed" /> <effectiveTime value="881688925508" /> < value unit="" xsi:type="PQ" value="NEGATIVE" /> <referenceRange> <observationRange> <text>NEGATIVE</text> </ observationRange> </referenceRange> </observation> </ component> <component> <observation moodCode="EVN" classCode="OBS"> <templateId root="216.840.1.449619.10..22.4.2" /> <id nullFlavor="NA" /> <code codeSystem="local" code="13689-9" displayName= "Urine methadone detection by screening method" /> <statusCode code= "completed" /> <effectiveTime value="936656587337" /> <value unit="" xsi:type="PQ" value="NEGATIVE" /> <referenceRange> < observationRange> <text>NEGATIVE</text> </ observationRange> </referenceRange> </observation> </ component> <component> <observation moodCode="EVN" classCode="OBS"> <templateId root="216.840.1.007448.01.28.22.4.2" /> <id nullFlavor="NA" /> <code codeSystem="local" code="38568-6" displayName= "Urine oxycodone detection" /> <statusCode code="completed" /> <effectiveTime value="581559748844" /> <value unit="" xsi:type="PQ" value="NEGATIVE" /> <referenceRange> <observationRange> <text>NEGATIVE</text> </observationRange> </ referenceRange> </observation> </component> <component> <observation moodCode="EVN" classCode="OBS"> <templateId root= "16.840.1.085507...22.4.2" /> <id nullFlavor="NA" /> < code codeSystem="local" code="89611-3" displayName="Urine propoxyphene detection " /> <statusCode code="completed" /> <effectiveTime value= "" /> <value unit="" xsi:type="PQ" value="NEGATIVE" /> <referenceRange> <observationRange> <text>NEGATIVE </text> </observationRange> </referenceRange> </ observation> </component> </organizer> </entry> <entry> <organizer moodCode="EVN" classCode="BATTERY"> <templateId root= "216.840.1.802497.10..22.4.1" /> <id nullFlavor="NA" /> <code codeSystem="local" code="95104-7" displayName="Complete urinalysis with reflex to culture" /> <statusCode code="completed" /> <component> < observation moodCode="EVN" classCode="OBS"> <templateId root= "216.840.1.014362.10...4.2" /> <id nullFlavor="NA" /> < code codeSystem="local" code="5778-6" displayName="Urine color determination" / > <statusCode code="completed" /> <effectiveTime value= "137975519207" /> <value unit="" xsi:type="PQ" value="YELLOW" /> <referenceRange> <observationRange> <text>NRG</text > </observationRange> </referenceRange> </observation > </component> <component> <observation moodCode="EVN" classCode="OBS"> <templateId root="216.840.1.612592.10...4.2" /> <id nullFlavor="NA" /> <code codeSystem="local" code="57681-6 " displayName="Urine clarity determination" /> <statusCode code= "completed" /> <effectiveTime value="376691050311" /> <value unit="" xsi:type="PQ" value="CLEAR" /> <referenceRange> < observationRange> <text>NRG</text> </observationRange> </referenceRange> </observation> </component> < component> <observation moodCode="EVN" classCode="OBS"> < templateId root="216.840.1.510254.22.4.2" /> <id nullFlavor="NA " /> <code codeSystem="local" code="5803-2" displayName="Urine pH measurement by test strip" /> <statusCode code="completed" /> <effectiveTime value="804338887263" /> <value unit="" xsi:type="PQ" value="6.5" /> <referenceRange> <observationRange> <text>5-9</text> </observationRange> </referenceRange> </observation> </component> <component> <observation moodCode="EVN" classCode="OBS"> <templateId root= "2.16.840.1.691470.01.28.22.4.2" /> <id nullFlavor="NA" /> < code codeSystem="local" code="5811-5" displayName="Specific gravity of urine by test strip" /> <statusCode code="completed" /> <effectiveTime value="323612512130" /> <value unit="" xsi:type="PQ" value="1.020" /> <referenceRange> <observationRange> <text>1.016 -1.022</text> </observationRange> </referenceRange> < /observation> </component> <component> <observation moodCode= "EVN" classCode="OBS"> <templateId root="2.16.840.1.721763.10..4.2 " /> <id nullFlavor="NA" /> <code codeSystem="local" code= "88423-8" displayName="Urine protein assay by test strip, semi-quantitative" /> <statusCode code="completed" /> <effectiveTime value= "706285343641" /> <value unit="" xsi:type="PQ" value="2+" /> < interpretationCode codeSystem="local" code="*" /> <referenceRange> <observationRange> <text>NEGATIVE</text> </ observationRange> </referenceRange> </observation> </ component> <component> <observation moodCode="EVN" classCode="OBS"> <templateId root="216.840.1.893555.10..4.2" /> <id nullFlavor="NA" /> <code codeSystem="local" code="48150-9" displayName= "Urine glucose detection by automated test strip" /> <statusCode code= "completed" /> <effectiveTime value="578659081683" /> <value unit="" xsi:type="PQ" value="NEGATIVE" /> <referenceRange> < observationRange> <text>NEGATIVE</text> </ observationRange> </referenceRange> </observation> </ component> <component> <observation moodCode="EVN" classCode="OBS"> <templateId root="16.840.1.795797.10..4.2" /> <id nullFlavor="NA" /> <code codeSystem="local" code="57227-2" displayName= "Erythrocytes detection in urine sediment by light microscopy" /> < statusCode code="completed" /> <effectiveTime value="787344599417" /> <value unit="" xsi:type="PQ" value="3+" /> < interpretationCode codeSystem="local" code="*" /> <referenceRange> <observationRange> <text>NEGATIVE</text> </ observationRange> </referenceRange> </observation> </ component> <component> <observation moodCode="EVN" classCode="OBS"> <templateId root="216.840.1.101675.10..4.2" /> <id nullFlavor="NA" /> <code codeSystem="local" code="43253-4" displayName= "Urine ketones detection by automated test strip" /> <statusCode code= "completed" /> <effectiveTime value="006430241214" /> <value unit="" xsi:type="PQ" value="NEGATIVE" /> <referenceRange> < observationRange> <text>NEGATIVE</text> </ observationRange> </referenceRange> </observation> </ component> <component> <observation moodCode="EVN" classCode="OBS"> <templateId root="216.840.1.334700.10.22.4.2" /> <id nullFlavor="NA" /> <code codeSystem="local" code="5802-4" displayName= "Urine nitrite detection by test strip" /> <statusCode code="completed " /> <effectiveTime value="870243555449" /> <value unit="" xsi :type="PQ" value="NEGATIVE" /> <referenceRange> < observationRange> <text>NEGATIVE</text> </ observationRange> </referenceRange> </observation> </ component> <component> <observation moodCode="EVN" classCode="OBS"> <templateId root="05.27.840.1.279239.10..4.2" /> <id nullFlavor="NA" /> <code codeSystem="local" code="5770-3" displayName= "Urine total bilirubin detection by test strip" /> <statusCode code= "completed" /> <effectiveTime value="697378650655" /> <value unit="" xsi:type="PQ" value="NEGATIVE" /> <referenceRange> < observationRange> <text>NEGATIVE</text> </ observationRange> </referenceRange> </observation> </ component> <component> <observation moodCode="EVN" classCode="OBS"> <templateId root="216.840.1.531596.10..22.4.2" /> <id nullFlavor="NA" /> <code codeSystem="local" code="42416-8" displayName= "Urine urobilinogen measurement by automated test strip (mass/volume)" /> <statusCode code="completed" /> <effectiveTime value="269379445995 " /> <value unit="mg/dL" xsi:type="PQ" value="4" /> < interpretationCode codeSystem="local" code="*" /> <referenceRange> <observationRange> <text>NORMAL</text> </ observationRange> </referenceRange> </observation> </ component> <component> <observation moodCode="EVN" classCode="OBS"> <templateId root="2.16.840.1.404360.10...4.2" /> <id nullFlavor="NA" /> <code codeSystem="local" code="5799-2" displayName= "Urine leukocyte esterase detection by dipstick" /> <statusCode code= "completed" /> <effectiveTime value="565019022086" /> <value unit="" xsi:type="PQ" value="1+" /> <interpretationCode codeSystem= "local" code="*" /> <referenceRange> <observationRange> <text>NEGATIVE</text> </observationRange> </ referenceRange> </observation> </component> <component> <observation moodCode="EVN" classCode="OBS"> <templateId root= "2.16.840.1.887621.10.22.4.2" /> <id nullFlavor="NA" /> < code codeSystem="local" code="03452-2" displayName="Automated urine sediment erythrocyte count by microscopy (number/high power field)" /> < statusCode code="completed" /> <effectiveTime value="897795109406" /> <value unit="[HPF]" xsi:type="PQ" value="" /> <referenceRange > <observationRange> <text>NRG</text> </ observationRange> </referenceRange> </observation> </ component> <component> <observation moodCode="EVN" classCode="OBS"> <templateId root="216.840.1.741485.10..4.2" /> <id nullFlavor="NA" /> <code codeSystem="local" code="5821-4" displayName= "Automated urine sediment leukocyte count by microscopy (number/high power field )" /> <statusCode code="completed" /> <effectiveTime value= "284617455590" /> <value unit="" xsi:type="PQ" value="RARE" /> <referenceRange> <observationRange> <text>NRG</text> </observationRange> </referenceRange> </observation> </component> <component> <observation moodCode="EVN" classCode ="OBS"> <templateId root="216.840.1.374086.01.28.22.4.2" /> < id nullFlavor="NA" /> <code codeSystem="local" code="30759-5" displayName="Bacteria detection in urine sediment by light microscopy" /> <statusCode code="completed" /> <effectiveTime value="120677601519 " /> <value unit="" xsi:type="PQ" value="TRACE" /> < referenceRange> <observationRange> <text>NRG</text> </observationRange> </referenceRange> </observation> </component> <component> <observation moodCode="EVN" classCode= "OBS"> <templateId root="216.840.1.196396.10..4.2" /> < id nullFlavor="NA" /> <code codeSystem="local" code="20777-8" displayName="Squamous epithelial cells detection in urine sediment by light microscopy" /> <statusCode code="completed" /> <effectiveTime value="191870948947" /> <value unit="" xsi:type="PQ" value="02-02" /> <interpretationCode codeSystem="local" code="*" /> < referenceRange> <observationRange> <text>NRG</text> </observationRange> </referenceRange> </observation> </component> <component> <observation moodCode="EVN" classCode= "OBS"> <templateId root="216.840.1.418067.10.2022.4.2" /> < id nullFlavor="NA" /> <code codeSystem="local" code="82516-8" displayName="Crystals detection in urine sediment by light microscopy" /> <statusCode code="completed" /> <effectiveTime value="348199472544 " /> <value unit="" xsi:type="PQ" value="NONE" /> < referenceRange> <observationRange> <text>NRG</text> </observationRange> </referenceRange> </observation> </component> <component> <observation moodCode="EVN" classCode= "OBS"> <templateId root="05.27.840.1.686170.1022.4.2" /> < id nullFlavor="NA" /> <code codeSystem="local" code="34303-4" displayName="Casts detection in urine sediment by light microscopy" /> <statusCode code="completed" /> <effectiveTime value="818109474637" /> <value unit="" xsi:type="PQ" value="NONE" /> <referenceRange > <observationRange> <text>NRG</text> </ observationRange> </referenceRange> </observation> </ component> <component> <observation moodCode="EVN" classCode="OBS"> <templateId root="216.840.1.774439.10.2022.4.2" /> <id nullFlavor="NA" /> <code codeSystem="local" code="8247-9" displayName= "Mucus detection in urine sediment by light microscopy" /> <statusCode code="completed" /> <effectiveTime value="851533396674" /> < value unit="" xsi:type="PQ" value="SMALL" /> <interpretationCode codeSystem="local" code="*" /> <referenceRange> < observationRange> <text>NRG</text> </observationRange> </referenceRange> </observation> </component> < component> <observation moodCode="EVN" classCode="OBS"> < templateId root="05.27.840.1.109056.1022.4.2" /> <id nullFlavor="NA " /> <code codeSystem="local" code="90253-4" displayName="Complete urinalysis with reflex to culture" /> <statusCode code="completed" /> <effectiveTime value="379938576354" /> <value unit="" xsi:type ="PQ" value="NO" /> <referenceRange> <observationRange> <text>NRG</text> </observationRange> </ referenceRange> </observation> </component> </organizer> </entry > <entry> <organizer moodCode="EVN" classCode="BATTERY"> <templateId root="05.27.840.1.807597.10.2022.4.1" /> <id nullFlavor="NA" /> <code codeSystem="local" code="44963-3" displayName="Chlamydia trachomatis DNA detection by probe and signal amplification method" /> <statusCode code= "completed" /> <component> <observation moodCode="EVN" classCode= "OBS"> <templateId root="05.27.840.1.977014.10.20.22.4.2" /> < id nullFlavor="NA" /> <code codeSystem="local" code="09253-6" displayName="Chlamydia trachomatis DNA detection by probe and target amplification method" /> <statusCode code="completed" /> < effectiveTime value="970957083233" /> <value unit="" xsi:type="PQ" value="Not Detected" /> <referenceRange> <observationRange> <text>Not Detected</text> </observationRange> </referenceRange> </observation> </component> </organizer> </ entry> <entry> <organizer moodCode="EVN" classCode="BATTERY"> < templateId root="216.840.1.183171.10.20.22.4.1" /> <id nullFlavor="NA" /> <code codeSystem="local" code="81887-7" displayName="Neisseria gonorrhoeae DNA detection by probe and signal amplification method" /> < statusCode code="completed" /> <component> <observation moodCode= "EVN" classCode="OBS"> <templateId root="216.840.1.269834.10.20.22.4.2 " /> <id nullFlavor="NA" /> <code codeSystem="local" code= "59673-5" displayName="Gonorrhea amp DNA-urine" /> <statusCode code= "completed" /> <effectiveTime value="464810987461" /> <value unit="" xsi:type="PQ" value="Not Detected" /> <referenceRange> <observationRange> <text>Not Detected</text> </ observationRange> </referenceRange> </observation> </ component> </organizer> </entry> <entry> <organizer moodCode="EVN" classCode="BATTERY"> <templateId root="216.840.1.342168.10.20.22.4.1" /> <id nullFlavor="NA" /> <code codeSystem="local" code="44294-5" displayName="Bacteria identification in genital specimen by aerobe culture" /> <statusCode code="completed" /> <component> <observation moodCode="EVN" classCode="OBS"> <templateId root= "216.840.1.048390.10..4.2" /> <id nullFlavor="NA" /> < code codeSystem="local" code="FTEXTERNAL" displayName="FREE TEXT EXTERNAL" /> <statusCode code="completed" /> <effectiveTime value= "" /> <value unit="" xsi:type="PQ" value="PLUS NORMAL NYA " /> <referenceRange> <observationRange> <text> NRG</text> </observationRange> </referenceRange> </ observation> </component> <component> <observation moodCode= "EVN" classCode="OBS"> <templateId root="05.27.840.1.210688.10.4.2 " /> <id nullFlavor="NA" /> <code codeSystem="local" code="G" displayName="QUANTITY OF GROWTH" /> <statusCode code="completed" /> <effectiveTime value="" /> <value unit="" xsi:type= "PQ" value="Moderate Growth" /> <referenceRange> < observationRange> <text>NRG</text> </observationRange> </referenceRange> </observation> </component> < component> <observation moodCode="EVN" classCode="OBS"> < templateId root="05.27.840.1.139054.1022.4.2" /> <id nullFlavor="NA " /> <code codeSystem="local" code="44909-4" displayName="Bacteria identification in genital specimen by aerobe culture" /> <statusCode code="completed" /> <effectiveTime value="" /> < value unit="" xsi:type="PQ" value="29705496" /> <referenceRange> <observationRange> <text>NRG</text> </ observationRange> </referenceRange> </observation> </ component> </organizer> </entry> <entry> <organizer moodCode="EVN" classCode="BATTERY"> <templateId root="05.27.840.1.563485.10..22.4.1" /> <id nullFlavor="NA" /> <code codeSystem="local" code="667-6" displayName="Microscopic examination by OLGA preparation" /> <statusCode code="completed" /> <component> <observation moodCode="EVN" classCode="OBS"> <templateId root="216.840.1.235441.10..22.4.2" /> <id nullFlavor="NA" /> <code codeSystem="local" code="667-6" displayName="Microscopic examination by OLGA preparation" /> < statusCode code="completed" /> <effectiveTime value="097817847864" /> <value unit="" xsi:type="PQ" value="TNP" /> <referenceRange> <observationRange> <text>NRG</text> </ observationRange> </referenceRange> </observation> </ component> </organizer> </entry> <entry> <organizer moodCode="EVN" classCode="BATTERY"> <templateId root="16.840.1.339618.10..22.4.1" /> <id nullFlavor="NA" /> <code codeSystem="local" code="680-9" displayName="Microscopic examination by wet preparation" /> <statusCode code="completed" /> <component> <observation moodCode="EVN" classCode="OBS"> <templateId root="[id number]" /> <id nullFlavor="NA" /> <code codeSystem="local" code= "WETRESULT" displayName="WET PREP RESULTS" /> <statusCode code= "completed" /> <effectiveTime value="[id number]" /> <value unit="" xsi:type="PQ" value="03-15-17/" /> <referenceRange> <observationRange> <text>NRG</text> </observationRange > </referenceRange> </observation> </component> </ organizer> </entry></section> Encounters ACCT No. Visit Date/Time Discharge Status Pt. Type Provider Facility Loc./Unit Complaint [id number] 03/29/2015 19:10:00 04/22/2015 16:58:00 DIS Inpatient Marianne FISCHER, [facility] W.9TS [id number] 04/17/2017 12:47:00 04/17/2017 14:22:00 DIS Emergency JOHN FISCHER, SANTINO Andrews [facility] ER HEADACHE FROM INJURY [id number] 03/24/2017 00:38:00 03/24/2017 01:59:00 DIS Emergency LAWRENCE WHITESIDE APRN [facility] ER VOMITING, CONTROL CAME OUT W/URINATING [id number] 01/27/2017 17:17:00 01/27/2017 20:18:00 DIS Emergency MORGAN FISCHER, MARIA ELENA Mao [facility] ER DENTAL PAIN/FACE SWELLING [id number] 01/25/2017 20:50:00 01/25/2017 21:44:00 DIS Emergency MAURIZIO THURMAN MD [facility] ER MOUTH ABCESS [id number] 11/22/2016 15:18:00 11/22/2016 17:00:00 DIS Emergency LAWRENCE WHITESIDE APRN [facility] ER RT LEG INJ [id number] 08/23/2016 13:34:00 08/23/2016 16:55:00 DIS Emergency LAWRENCE WHITESIDE APRN [facility] ER ABD PAIN [id number] 04/12/2016 11:27:00 04/12/2016 12:57:00 DIS Emergency JUAN GONZALEZ DO [facility] ER R LEG OINJ [id number] 12/31/2015 15:00:00 01/01/2016 11:55:00 DIS Inpatient HIEU HINOJOSA MD [facility] ICU SUICIDE ATTEMPT VOL DEPLETION DEPRESSION ANXIETY [id number] 11/20/2015 10:55:00 11/20/2015 12:05:00 DIS Emergency LAWRENCE WHITESIDE APRN [facility] ER COUGH/CONGESTION SOA [id number] 10/17/2015 08:04:00 10/17/2015 23:59:59 CLS Outpatient KADIE NEVAREZ MD [facility] RAD SPLENOMEGALY [id number] 09/21/2015 14:56:00 09/21/2015 15:46:00 DIS Emergency SANTINO LOPEZ MD [facility] ER BITE/LEFT EYE PASSED OUT [id number] 09/17/2015 13:48:00 09/17/2015 17:20:00 DIS Emergency JUAN GONZALEZ DO [facility] ER HEADACHE/LEFT SIDE NUMBNESS [id number] 05/06/2015 00:09:00 05/06/2015 23:59:59 CLS Preadmit KENYATTA COLEMAN MD [facility] ONC [id number] 02/04/2015 13:33:00 05/05/2015 00:01:00 DIS Outpatient KENYATTA COLEMAN MD [facility] ONC [id number] 03/29/2015 08:08:00 03/29/2015 09:25:00 DIS Emergency VALERIA GUILLERMO MD [facility] ER R KNEE PAIN [id number] 03/10/2015 14:25:00 03/10/2015 23:59:59 CLS Outpatient KADIE NEVAREZ MD [facility] RAD TRANSIENT ALTERATION OF AWARENESS [id number] 01/25/2015 10:51:00 01/25/2015 12:01:00 DIS Emergency LAWRENCE WHITESIDE UX UI DESIGNER [facility] ER DIFF BREATHING/ELEV HEART RATE [id number] 01/09/2015 11:00:00 01/09/2015 23:59:59 CLS Preadmit MARCELLE NELSON APRN [facility] CARD CHEST PAIN DIZZINESS PALPITATIONS [id number] 12/24/2014 10:42:00 01/08/2015 00:01:00 DIS Outpatient MARCELLE NELSON APRN [facility] CARD CHEST PAIN DIZZINESS PALPITATIONS [id number] 11/03/2014 14:34:00 11/03/2014 15:57:00 DIS Emergency CAMILLE FISCHER, ASHLEY Bell [facility] ER [id number] 10/09/2014 09:52:00 10/09/2014 23:59:59 CLS Outpatient GERI FISCHER, KADIE Richardson [facility] RAD [id number] 06/14/2017 00:19:00 ACT Emergency JUAN GONZALEZ DO [facility] ER LOWER BACK PAIN [id number] 08/22/2016 21:36:00 Document Registration
[2017-06-14 00:42] LABS: BILIRUBIN,URINE NEGATIVE (NEGATIVE); CLARITY,URINE CLEAR; GLUCOSE, URINE (UA) NEGATIVE (NEGATIVE); KETONES,URINE NEGATIVE (NEGATIVE); LEUKOCYTE ESTERASE ,URINE NEGATIVE (NEGATIVE); NITRITE,URINE NEGATIVE (NEGATIVE); PH,URINE 6 (5-9); PROTEIN,URINE NEGATIVE (NEGATIVE); UROBILINOGEN,URINE NORMAL (NORMAL)
--- NOTE | 2017-06-14 00:44 | ED Back Pain ---
General Stated Complaint: LOWER BACK PAIN Source of Information: Patient, EMS History of Present Illness Date Seen by Provider: Jun 14, 2017 Time Seen by Provider: 00:20 Initial Comments PT ARRIVES VIA EMS FROM HOME, 2 CHILDREN ARE WITH PT PT STATES HER FEET GOT CAUGHT IN BLANKETS AND SHE FELL OFF THE BED, HITTING HER BACK ON THE WALL AND LANDING ON HER LEFT SIDE, BUT C/O RIGHT LOWER BACK PAIN STATES SHE PUSHED HER "LIFE ALERT" BUTTON BECAUSE SHE COULDN'T GET UP, AND EMS ARRIVED PT HAS CHRONIC BACK AND NECK PAIN AND HAS A RIGHT FOOT DROP--POST CVA WITH RIGHT SIDE WEAKNESS. STATES HER FEET ARE ALWAYS NUMB AND ARE NO DIFFERENT TODAY NO NEW MOTOR DEFICITS DID NOT HIT HEAD AND NO LOSS OF CONSCIOUSNESS NO NECK OR UPPER BACK PAIN PT VOIDED IN BEDSIDE COMMODE AND WAS ABLE TO BEAR WEIGHT AND TRANSFER TO AND FROM BED/BEDSIDE COMMODE, SOON SHE ARRIVED. . LMP 05/20/17. NORMAL . MIRENA IUD FELL OUT 03/24/17. YET PT ALSO STATES SHE HAS HAD BTL PT WITH MULTIPLE VISITS Allergies and Home Medications Allergies Coded Allergies: codeine (Verified Allergy, Severe, ITCHING, HIVES, SOA, 11/03/14) hydrocodone (Verified Allergy, Severe, THROAT SWELLING, PT HAS RECEIVED OXYCODONE IN THE PAST, 12/31/15) latex (Verified Allergy, Severe, BLISTERS, 11/03/14) penicillin (Verified Allergy, Severe, ITCHING, 11/03/14) Sulfa (Sulfonamide Antibiotics) (Verified Allergy, Unknown, RASH, 11/03/14) Home Medications Cyclobenzaprine HCl 10 Mg Tablet, 10 MG PO Q8H Prescribed by: JUAN GONZALEZ on 06/14/17151 Naproxen 500 Mg Tablet, 500 MG PO BID Prescribed by: JUAN GONZALEZ on 06/14/17151 Tramadol HCl 50 Mg Tablet, 50 MG PO Q4H Prescribed by: JUAN GONZALEZ on 06/14/17151 Patient Home Medication List Home Medication List Reviewed: Yes Constitutional: no symptoms reported Respiratory: no symptoms reported Cardiovascular: no symptoms reported Gastrointestinal: no symptoms reported Genitourinary: no symptoms reported Musculoskeletal: see HPI Skin: no symptoms reported Psychiatric/Neurological: See HPI, Pre-Existing Deficit Past Gjefick-Pqqppi-Aherlm Hx Patient Social History Alcohol Use: Occasionally Uses Alcohol Beverage of Choice: Other Smoking Status: Current Everyday Smoker (1 PPD) Type Used: Cigarettes (1 PPD) 2nd Hand Smoke Exposure: Yes Recent Foreign Travel: No Contact w/Someone Who Travel: No Recent Hopitalizations: No Immunizations Up To Date Tetanus Booster (TDap): Less than 5yrs Date of Pneumonia Vaccine: Dec 10, 2014 Seasonal Allergies Seasonal Allergies: No Surgeries History of Surgeries: Yes (RIGHT LOWR LEG FX'S /ORIF & FASCIOTOMY-12 SURG; IVC FILTER ) Surgeries: Orthopedic, 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, Vascular Surgery Respiratory History of Respiratory Disorde: Yes (CHILDHOOD) Respiratory Disorders: Asthma Cardiovascular History of Cardiac Disorders: Yes (PFO AND RIGHT ATRIAL SHUNT-NO REPAIR; DVT RIGHT LEG--IVC FILTER--POST RIGHT LEG FX / ORIF/FASCIOTOMY) Cardiac Disorders: Congenital Heart Disease, Deep Vein Thrombosis Neurological History of Neurological Disord: Yes (CVA WITH RIGHT SIDED WEAKNESS IN 2013; RIGHT LOWER LEG FX/ORIF WITH POST OP DVT AND COMPARTMENT SYNDROME WITH FASCIOTOMY AND DEVELOPED DVT WHICH CAUSED STROKE--ALSO WITH PFO WITH RIGHT ATRIAL SHUNT; SUBSEQUENT RIGHT FOOT DROP AND NEUROPATHY IN BOTH FEET) Neurological Disorders: Headaches /Migraines, Neuropathy, Stroke 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 System Hx 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 Disorders: No RN LONG TERM CARE History: 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 Genitourinary History of Genitourinary Disor: Yes Genitourinary Disorders: Kidney Stones Gastrointestinal History of Gastrointestinal Di: Yes Gastrointestinal Disorders: Colitis Musculoskeletal History of Musculoskeletal Dis: Yes (CHRONIC NECK AND BACK PAIN; CHRONIC RIGHT LEG PAIN; RIGHT FOOT DROP) Musculoskeletal Disorders: Degenerate Disk Disease, Scoliosis, Chronic Back Pain, Fractures Endocrine History of Endocrine Disorders: Yes Endocrine Disorders: Diabetes, Non-Insulin dep HEENT History of HEENT Disorders: Yes ("LEGALLY BLIND" ) Loss of Vision: Bilateral Cancer History of Cancer: No Psychosocial History of Psychiatric Problem: Yes Behavioral Health Disorders: ADD/ADHD, Anxiety, PTSD, Bipolar, Depression Integumentary History of Skin or Integumenta: No Blood Transfusions History of Blood Disorders: No Family Medical History Family Medial History: Antiphospholipid syndrome 19 MOTHER Diabetes mellitus 19 FATHER G8 BROTHER FH: aneurysm 19 FATHER FH: lupus 19 MOTHER FHx: congestive heart failure 19 FATHER FHx: renal failure 19 MOTHER Heart murmur 19 MOTHER Lupus anticoagulant disorder 19 MOTHER Patent foramen ovale 19 FATHER Barry syndrome G8 SISTER Physical Exam Vital Signs Vital Signs - First Documented Capillary Refill : General Appearance: No Apparent Distress, Obese, Other (SOMEWHAT DRAMATIC, EXAGGERATED PAIN RESPONSE) HEENT: PERRL/EOMI Neck: Full Range of Motion, Normal Inspection, Non Tender, Supple Cardiovascular: Regular Rate, Rhythm, No Edema, No JVD, No Murmur, Normal Peripheral Pulses Respiratory: Normal Breath Sounds, No Accessory Muscle Use, No Respiratory Distress Peripheral Pulses: 2+ Dorsalis Pedis (R), 2+ Left Dors-Pedis (L) Gastrointestinal: Non Tender, Soft Back: No CVA Tenderness, Other (TENDERNESS TO RIGHT LOWER LUMBAR AND PARAVERTEBRAL AREA AND ILIAC CREST AREA. NO EXTERNAL EVIDENCE OF TRAUMA ANYWHERE. ) Extremity: Normal Capillary Refill, Non Tender, No Pedal Edema Neurologic/Psychiatric: Alert, Oriented x3, Normal Mood/Affect, yarder puncher II-XII Norm as Tested, Other (RIGHT SIDE WEAKNESS AND RIGHT FOOT DROP; DECREASED SENSATION TO BOTH FEET) Skin: Normal Color, Warm/Dry, Tattoos/Piercings (TATTOOS), Other (NO EXTERNAL EVIDENCE OF TRAUMA ANYWHERE) Progress/Results/Core Measures Results/Orders Lab Results Laboratory Tests Test 06/14/17 00:25 Range/Units Urine Color STRAW Urine Clarity CLEAR Urine pH 6 5-9 Urine Specific [place] 1.005 L 1.016-1.022 Urine Protein NEGATIVE NEGATIVE Urine Glucose (UA) NEGATIVE NEGATIVE Urine Ketones NEGATIVE NEGATIVE Urine Nitrite NEGATIVE NEGATIVE Urine Bilirubin NEGATIVE NEGATIVE Urine Urobilinogen NORMAL NORMAL MG/DL Urine Leukocyte Esterase NEGATIVE NEGATIVE Urine RBC (Auto) NEGATIVE NEGATIVE Urine RBC NONE /HPF Urine WBC NONE /HPF Urine Squamous Epithelial Cells 2-5 /HPF Urine Crystals NONE /LPF Urine Bacteria TRACE /HPF Urine Casts NONE /LPF Urine Mucus NEGATIVE /LPF Urine Culture Indicated NO My Orders Orders - JUAN GONZALEZ DO Urine Bedside (06/14/17 00:28) Ua Culture If Indicated (06/14/17 00:28) Ct Lumbar Spine Wo (06/14/17 00:28) Pelvis (06/14/17 00:28) Orphenadrine Injection (Norflex Injectio (06/14/17 00:45) Ketorolac Injection (Toradol Injection) (06/14/17 00:45) Rx-Cyclobenzaprine Tablet (Rx-Flexeril T (06/14/17 01:49) Rx-Naproxen (Rx-Naprosyn) (06/14/17 01:49) Rx-Tramadol Hcl (Rx-Ultram) (06/14/17 01:49) Medications Given in ED Current Medications Medications Dose Ordered Sig/Diomedes Route Start Time Stop Time Status Last Admin Dose Admin Ketorolac Tromethamine 60 mg ONCE ONCE IM 06/14/17 00:45 06/14/17 01:35 DC 06/14/17 00:46 60 MG Orphenadrine Citrate 60 mg ONCE ONCE IM 06/14/17 00:45 06/14/17 01:35 DC 06/14/17 00:46 60 MG Vital Signs/I&O Vital Sign - Last 12Hours 06/14/17 06/14/17 06/14/17 00:14 00:14 02:10 Temp 97.2 97.2 97.2 Pulse 93 93 90 Resp 20 20 20 B/P (MAP) 141/95 (110) 141/95 (110) 137/90 (110) Pulse Ox 100 100 100 O2 Delivery Room Air Room Air Progress Note : Progress Note PT AMBULATED OUT OF ER ON HER OWN WITHOUT DIFFICULTY. Diagnostic Imaging Comments XRAY PELVIS--NO ACUTE PROCESS, PENDING RADIOLOGIST REVIEW CT LUMBAR SPINE--NO ACUTE PROCESS, PER [facility] VIA FAX @ [phone] Reviewed: Reviewed by Me Departure Impression Impression: Primary Impression: Low back strain Additional Impression: Exacerbation of chronic back pain Disposition: 01 HOME, SELF-CARE Condition: Stable Departure-Patient Inst. Referrals: HIEU YAP MD (PCP/Family) Primary Care Physician Patient Instructions: Low Back Pain (DC), Muscle Strain (DC) Add. Discharge Instructions: ALTERNATE ICE AND HEAT TO SORE AREA AT 20 MINUTE INTERVALS NO LIFTING OVER 5 LBS, NO TWISTING OR BENDING AT WAIST X 1 WEEK FOLLOW UP WITH YOUR DR IN 3-4 DAYS IF NO BETTER Scripts Tramadol HCl (Ultram) 50 Mg Tablet 50 MG PO Q4H, #20 TAB Prov: JOSE GONZALEZA K DO 06/14/17 Naproxen (Naproxen) 500 Mg Tablet 500 MG PO BID, #20 TAB Prov: LISA,JUAN K DO 06/14/17 Cyclobenzaprine HCl (Cyclobenzaprine HCl) 10 Mg Tablet 10 MG PO Q8H, #15 TAB Prov: LISAJUAN K DO 06/14/17 JUAN GONZALEZ DO Jun 14, 2017 00:43
[2017-06-14] MEDS ORDERED: ORPHENADRINE 60 MG/2 ML (NORFLEX) AMP IM ONE (00:45)
[2017-06-14] MEDS ORDERED: KETOROLAC 60 MG/2 ML VIAL IM ONE (00:45)
[2017-06-14 00:48] LABS: COLOR,URINE STRAW
[2017-06-14 00:49] LABS: BACTERIA,URINE TRACE /HPF
[2017-06-14] MEDS ORDERED: RX-CYCLOBENZAPRINE 10 MG (FLEXERIL) TAB PPK#3 PO STA (01:49)
[2017-06-14] MEDS ORDERED: RX-TRAMADOL 50 MG (ULTRAM) TAB PPK#4 PO STA (01:49)
[2017-06-14] MEDS ORDERED: RX-NAPROXEN (NAPROSYN) 250 MG TAB PPK#4 PO STA (01:49)
[2017-06-14] MEDS ORDERED: NAPR-915 PO (01:52)
[2017-06-14] MEDS ORDERED: TRAM-42 PO (01:52)
[2017-06-14] MEDS ORDERED: CYCL10TA9 PO (01:52)
[2017-06-14 02:10] VITALS: BP 137/90
--- NOTE | 2017-06-14 06:22 | Diagnostic Imaging Report ---
PROCEDURE: CT lumbar spine without contrast. TECHNIQUE: Multiple contiguous axial images were obtained through the lumbar spine without the use of intravenous contrast. Sagittal and coronal reformations were then performed. INDICATION: Low back pain after fall. FINDINGS: The alignment of the lumbar spine is normal. The vertebral body heights are well-maintained. There is no evidence of spondylolysis or spondylolisthesis. No fractures are identified. There is no bony encroachment upon the spinal canal. There is some mild lower lumbar hypertrophic degenerative facet disease. There is an IVC filter in place. The aorta is nonaneurysmal. There are no other focal soft tissue abnormalities. IMPRESSION: Mild lower lumbar hypertrophic degenerative facet disease, otherwise unremarkable. Dictated by: Dictated on workstation # [id number]
--- NOTE | 2017-06-14 06:43 | Diagnostic Imaging Report ---
INDICATION: Fall. FINDINGS: Examination of the pelvis in the supine projection fails to reveal evidence of fracture, dislocation or other osseous abnormality. IMPRESSION: Negative pelvis. Dictated by: Dictated on workstation # [id number]
== END 2017-06-14 02:10 | disposition home or self-care (01) ==
LOC: EDUNIT# 00:16 → ER 00:19
DX: S39.012A Strain of muscle, fascia and tendon of lower back, initial encounter (principal); G89.29 Other chronic pain; J45.909 Unspecified asthma, uncomplicated; E11.9 Type 2 diabetes mellitus without complications; F90.9 Attention-deficit hyperactivity disorder, unspecified type; F41.9 Anxiety disorder, unspecified; F32.9 Major depressive disorder, single episode, unspecified; F43.10 Post-traumatic stress disorder, unspecified; I25.10 Atherosclerotic heart disease of native coronary artery without angina pectoris; F17.210 Nicotine dependence, cigarettes, uncomplicated; Z88.5 Allergy status to narcotic agent; Z98.51 Tubal ligation status; Z82.49 Family history of ischemic heart disease and other diseases of the circulatory system; Z87.442 Personal history of urinary calculi; Z90.89 Acquired absence of other organs; Z86.718 Personal history of other venous thrombosis and embolism; Z91.040 Latex allergy status; Z88.0 Allergy status to penicillin; Z88.2 Allergy status to sulfonamides; Z86.73 Personal history of transient ischemic attack (TIA), and cerebral infarction without residual deficits; W06.XXXA Fall from bed, initial encounter; W22.8XXA Striking against or struck by other objects, initial encounter
CPT/HCPCS: 72131; 72170; 81000; 84703; 96372

== ENCOUNTER 2017-08-17 17:19 | Emergency (ER) | payer MEDICAID ==
[~2017-08-17] VITALS: Ht 152.4 cm; Wt 90.7 kg
[~2017-08-17 17:19] MED LIST changes: +CYCL10TA9 PO; +TRAM-42 PO
[2017-08-17] MEDS ORDERED: ASPIRIN 81 MG CHEW (CHILDREN'S ASA) PO ONE (17:30)
[2017-08-17] MEDS ORDERED: AMIT25TA9 (17:44)
[2017-08-17] MEDS ORDERED: RIVA1TAB (17:44)
--- NOTE | 2017-08-17 17:44 | ED Chest Pain ---
General Chief Complaint: Chest Wall/Rib Pain Stated Complaint: CHEST PAIN Nursing Triage Note: TO ROOM PER EMS HAD L SIDE CHEST PAIN AROUND 4 PM NO PAIN ON EMS ARRIVAL AND ON ADMIT. MONITOR SR. Nursing Sepsis Screen: No Definite Risk Source: patient Exam Limitations: no limitations History of Present Illness Date Seen by Provider: August 17, 2017 Time Seen by Provider: 17:44 Allergies and Home Medications Allergies Coded Allergies: latex (Verified Allergy, Severe, BLISTERS, 11/03/14) penicillin (Verified Allergy, Severe, ITCHING, 11/03/14) Sulfa (Sulfonamide Antibiotics) (Verified Allergy, Unknown, RASH, 11/03/14) Home Medications Tramadol HCl 50 Mg Tablet, 50 MG PO Q4H PRN for pain Prescribed by: MARYLOU ENCINAS on 08/01/17 0011 Past Ncbzfvj-Syccxl-Xviolk Hx Patient Social History Alcohol Use: Denies Use Number of Drinks Today: II Alcohol Beverage of Choice: Other Recreational Drug Use: No Smoking Status: Current Everyday Smoker Type Used: Cigarettes 2nd Hand Smoke Exposure: Yes Recent Foreign Travel: No Contact w/Someone Who Travel: No Recent Infectious Disease Expo: No Recent Hopitalizations: No Immunizations Up To Date Tetanus Booster (TDap): Less than 5yrs Date of Pneumonia Vaccine: Dec 10, 2014 Seasonal Allergies Seasonal Allergies: No Past Medical History Surgeries: Yes (RIGHT LOWR LEG FX'S /ORIF & FASCIOTOMY-12 SURG; IVC FILTER ) Orthopedic, 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, Vascular Surgery Respiratory: Yes (CHILDHOOD) Asthma Cardiac: Yes Congenital Heart Disease, Deep Vein Thrombosis Neurological: Yes Headaches /Migraines, Neuropathy, Stroke 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 Disorders: 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 Sexually Transmitted Disease: No Genitourinary: Yes Kidney Stones Gastrointestinal: Yes Colitis Musculoskeletal: Yes (CHRONIC NECK AND BACK PAIN; CHRONIC RIGHT LEG PAIN; RIGHT FOOT DROP) Degenerate Disk Disease, Scoliosis, Chronic Back Pain, Fractures Endocrine: Yes Diabetes, Non-Insulin dep HEENT: Yes ("LEGALLY BLIND" ) Loss of Vision: Bilateral Cancer: No Psychosocial: Yes ADD/ADHD, Anxiety, PTSD, Bipolar, Depression Integumentary: No Blood Disorders: No Family Medical History Antiphospholipid syndrome 19 MOTHER Diabetes mellitus 19 FATHER G8 BROTHER FH: aneurysm 19 FATHER FH: lupus 19 MOTHER FHx: congestive heart failure 19 FATHER FHx: renal failure 19 MOTHER Heart murmur 19 MOTHER Lupus anticoagulant disorder 19 MOTHER Patent foramen ovale 19 FATHER Barry syndrome G8 SISTER No Pertinent Family Hx Physical Exam Vital Signs Vital Signs - First Documented 08/17/17 17:19 Temp 98.2 Pulse 94 Resp 18 B/P (MAP) 129/99 (109) Pulse Ox 100 O2 Delivery Room Air Capillary Refill : Less Than 3 Seconds Progress/Results/Core Measures Results/Orders Lab Results Laboratory Tests Test 08/17/17 17:59 Range/Units White Blood Count 9.9 4.3-11.0 10^3/uL Red Blood Count 4.45 4.35-5.85 10^6/uL Hemoglobin 12.0 11.5-16.0 G/DL Hematocrit 37 35-52 % Mean Corpuscular Volume 84 80-99 FL Mean Corpuscular Hemoglobin 27 25-34 PG Mean Corpuscular Hemoglobin Concent 32 32-36 G/DL Red Cell Distribution Width 16.7 H 10.0-14.5 % Platelet Count 458 H 130-400 10^3/uL Mean Platelet Volume 9.6 7.4-10.4 FL Neutrophils (%) (Auto) 54 42-75 % Lymphocytes (%) (Auto) 38 12-44 % Monocytes (%) (Auto) 5 0-12 % Eosinophils (%) (Auto) 2 0-10 % Basophils (%) (Auto) 0 0-10 % Neutrophils # (Auto) 5.3 1.8-7.8 X 10^3 Lymphocytes # (Auto) 3.8 1.0-4.0 X 10^3 Monocytes # (Auto) 0.5 0.0-1.0 X 10^3 Eosinophils # (Auto) 0.2 0.0-0.3 10^3/uL Basophils # (Auto) 0.0 0.0-0.1 10^3/uL Prothrombin Time 13.8 12.2-14.7 SEC INR Comment 1.1 0.8-1.4 Activated Partial Thromboplast Time 36 H 24-35 SEC D-Dimer 0.33 0.00-0.49 UG/ML Sodium Level 139 135-145 MMOL/L Potassium Level 3.9 3.6-5.0 MMOL/L Chloride Level 107 98-107 MMOL/L Carbon Dioxide Level 24 21-32 MMOL/L Anion Gap 8 5-14 MMOL/L Blood Urea Nitrogen 7 7-18 MG/DL Creatinine 0.76 0.60-1.30 MG/DL Estimat Glomerular Filtration Rate > 60 BUN/Creatinine Ratio 9 Glucose Level 91 70-105 MG/DL Calcium Level 9.8 8.5-10.1 MG/DL Magnesium Level 1.9 1.8-2.4 MG/DL Total Bilirubin 0.3 0.1-1.0 MG/DL Aspartate Amino Transf (AST/SGOT) 11 5-34 U/L Alanine Aminotransferase (ALT/SGPT) 8 0-55 U/L Alkaline Phosphatase 39 L 40-136 U/L Total Creatine Kinase 154 29-168 U/L Creatine Kinase MB 0.6 <6.6 NG/ML Myoglobin 27.8 10.0-92.0 NG/ML Troponin I < 0.30 <0.30 NG/ML B-Type Natriuretic Peptide < 10.0 <100.0 PG/ML Total Protein 7.6 6.4-8.2 GM/DL Albumin 4.5 3.2-4.5 GM/DL My Orders Orders - MARYLOU ENCINAS PA Cbc With Automated Diff (08/17/17:) Magnesium (08/17/17:) Chest 1 View, Ap/Pa Only (08/17/17:) Ekg Tracing (08/17/17) Cardiac Profile 1 (08/17/17:) Comprehensive Metabolic Panel (08/17/17:) Myoglobin Serum (08/17/17:) Protime With Inr (08/17/17:) Partial Thromboplastin Time (08/17/17:) O2 (08/17/17:) Monitor-Rhythm Ecg Trace Only (08/17/17) Lipid Panel (08/18/17 06:00) Aspirin Chewable Tablet (Baby Aspirin Ch (08/17/17 17:30) Saline Lock/Iv-Start (08/17/17:) Creatine Kinase (08/17/17 17:) Creatine Kinase Mb (08/17/17 17:) BNP (08/17/17 17:) Fibrin Degradation Products (08/17/17 17:) Vital Signs/I&O 08/17/17 17:19 Temp 98.2 Pulse 94 Resp 18 B/P (MAP) 129/99 (109) Pulse Ox 100 O2 Delivery Room Air Blood Pressure Mean: 109 Departure Communication (Admissions) 1935 patient case discussed with Dr. Clinton. Recommends discharge to home with follow-up as an outpatient with Dr. Pringle and proceeding with the scheduled procedures on August [address] Pringle/Nancy Morales APRN. Impression Primary Impression: Chest wall pain Disposition: HOME, SELF-CARE Condition: Improved Departure-Patient Inst. Decision time for Depature: 20:04 Referrals: BONI PRINGLE MD FACP FAC CCDS HIEU YAP MD (PCP/Family) Primary Care Physician Patient Instructions: Costochondritis (DC), Chest Pain (DC) Add. Discharge Instructions: All discharge instructions reviewed with patient and/or family. Voiced understanding. Continue current medications. Follow-up with Dr. Pringle as an outpatient for recheck. You may use ice packs or heating pads as needed for pain. Follow-up with Dr. Yap as an outpatient for a recheck. Return in the emergency department for worsened symptoms, shortness of air, dizziness, shortness of air with activity, numbness, weakness, vomiting, abdominal pain, or any other concerns. MARYLOU ENCINAS August 17, 2017 17:44
[2017-08-17 18:02] LABS: BASOPHILS % (AUTO) 0 % (0-10); EOSINOPHILS # (AUTO) 0.2 10^3/uL (0.0-0.3); EOSINOPHILS % (AUTO) 2 % (0-10); HEMATOCRIT 37 % (35-52); LYMPHOCYTES # (AUTO) 3.8 X 10^3 (1.0-4.0); LYMPHOCYTES % (AUTO) 38 % (12-44); MEAN CORPUSCULAR HEMOGLOBIN 27 PG (25-34); MEAN CORPUSCULAR HGB CONC 32 G/DL (32-36); MEAN CORPUSCULAR VOLUME 84 FL (80-99); MEAN PLATELET VOLUME 9.6 FL (7.4-10.4); MONOCYTES # (AUTO) 0.5 X 10^3 (0.0-1.0); MONOCYTES % (AUTO) 5 % (0-12); NEUTROPHILS # (AUTO) 5.3 X 10^3 (1.8-7.8); NEUTROPHILS % (AUTO) 54 % (42-75); PLATELET COUNT 458 10^3/uL (130-400); RED BLOOD COUNT 4.45 10^6/uL (4.35-5.85); RED CELL DISTRIBUTION WIDTH 16.7 % (10.0-14.5); WHITE BLOOD COUNT 9.9 10^3/uL (4.3-11.0)
[2017-08-17 18:14] LABS: INR 1.1 (0.8-1.4); PROTHROMBIN TIME PATIENT 13.8 SEC (12.2-14.7)
--- NOTE | 2017-08-17 18:15 | Diagnostic Imaging Report ---
INDICATION: Chest pain. FINDINGS: The lungs are clear. The heart size and vascularity are normal. There is no effusion or pneumothorax. There has been no change when compared to study of 01/01/2016. IMPRESSION: Stable normal frontal chest x-ray. Dictated by: Dictated on workstation # [id number]
[2017-08-17 18:22] LABS: ALANINE AMINOTRANSFERASE 8 U/L (0-55); ALBUMIN 4.5 GM/DL (3.2-4.5); ALKALINE PHOSPHATASE 39 U/L (40-136); BILIRUBIN,TOTAL 0.3 MG/DL (0.1-1.0); BUN/CREATININE RATIO 9; CALCIUM 9.8 MG/DL (8.5-10.1); CARBON DIOXIDE 24 MMOL/L (21-32); CHLORIDE 107 MMOL/L (98-107); CREATINE KINASE 154 U/L (29-168); CREATININE SERUM 0.76 MG/DL (0.60-1.30); GFR ESTIMATED > 60; GLUCOSE 91 MG/DL (70-105); MAGNESIUM 1.9 MG/DL (1.8-2.4); POTASSIUM 3.9 MMOL/L (3.6-5.0); SODIUM 139 MMOL/L (135-145); TOTAL PROTEIN 7.6 GM/DL (6.4-8.2)
[2017-08-17 18:32] LABS: CREATINE KINASE MB 0.6 NG/ML (<6.6); MYOGLOBIN SERUM 27.8 NG/ML (10.0-92.0)
[2017-08-17 20:13] VITALS: BP 129/99
[2017-08-24] MEDS ORDERED: ASPI-586 PO (10:12)
== END 2017-08-17 20:13 | disposition home or self-care (01) ==
LOC: EDUNIT# 17:19 → ER 17:21
DX: R07.89 Other chest pain (principal); J45.909 Unspecified asthma, uncomplicated; G43.909 Migraine, unspecified, not intractable, without status migrainosus; Q24.9 Congenital malformation of heart, unspecified; E11.40 Type 2 diabetes mellitus with diabetic neuropathy, unspecified; F90.9 Attention-deficit hyperactivity disorder, unspecified type; F41.9 Anxiety disorder, unspecified; F31.9 Bipolar disorder, unspecified; F17.210 Nicotine dependence, cigarettes, uncomplicated; Z91.040 Latex allergy status; Z82.49 Family history of ischemic heart disease and other diseases of the circulatory system; Z86.73 Personal history of transient ischemic attack (TIA), and cerebral infarction without residual deficits; Z87.442 Personal history of urinary calculi; Z87.19 Personal history of other diseases of the digestive system; Z86.718 Personal history of other venous thrombosis and embolism; Z88.0 Allergy status to penicillin; Z98.51 Tubal ligation status; Z88.2 Allergy status to sulfonamides
CPT/HCPCS: 36415; 71045; 80053; 82550; 82553; 83735; 83874; 83880; 84484; 85025; 85379; 85610; 85730; 93005; 93041

== ENCOUNTER → 2017-08-23 | Outpatient (CLI) | payer MEDICAID ==
[~2017-08-23] VITALS: Ht 154.9 cm; Wt 90.7 kg
[2017-08-23] VITALS (10 sets, daily range): BP systolic 110–146; BP diastolic 53–100
[~2017-08-23] MED LIST changes: +AMIT25TA9; +ASPI-586 PO; +METH4TAB PO; +NS IV 1000 ML 1,000 ML IV SCH; +POLY255P; +PRD20T PO; +RIVA1TAB
--- NOTE | 2017-08-23 08:32 | Cardiac Procedure Note-CS/ASA ---
Pre-Procedure Note Pre-Op Procedure Note H&P Reviewed The H&P was reviewed, patient examined and no changes noted. Date H&P Reviewed: August 23, 2017 Time H&P Reviewed: 08:32 Conscious Sedation Pre-Proced Time Reviewed: 08:32 ASA Class: 2, 3 Airway Mallampati Classification: ([place] appropriate class) I. II. III, IV Lungs Heart ASA score ASA 1: a normal healthy patient ASA 2: a patient with a mild systemic disease (mid diabetes, controlled hypertension, obesity ASA 3: a patient with a severe systemic disease that limits activity (angina , COPD, prior Myocardial infarction) ASA 4: a patient with an incapacitating disease that is a constant threat to life (CHF, renal failure) ASA 5: a moribund patient not expected to survive 24 hrs. (ruptured aneurysm) ASA 6: a declared brain patient whose organs are being harvested. For emergent operations, add the letter E after the classification Grade 2 Sedation Plan: Analgesia, Amnesia, Plan communicated to team members, Discussed options with patient/fam, Discussed risks with patient/fam Note The patient is an appropriate candidate to undergo the planned procedure, sedation, and anesthesia. The patient immediately re-assessed prior to indication. BONI VALDIVIA MD FACP FACC CCDS August 23, 2017 08:32
--- NOTE | 2017-08-23 13:08 | Progress Note-Standard ---
Standard Progress Note Progress Notes/Assess & Plan Date Seen by Provider: August 23, 2017 Time Seen by Provider: 08:50 Progress/Assessment & Plan consult for GUTIERREZ. start time 0850 end time 0904 mac anesthesia. 70mg propofol given. tolerated procedure well. JOLIE COY CRNA August 23, 2017 13:07
--- NOTE | 2017-08-24 08:10 | Progress Note-Standard ---
Standard Progress Note Progress Notes/Assess & Plan Date Seen by Provider: August 23, 2017 Time Seen by Provider: 08:50 Progress/Assessment & Plan consult for GUTIERREZ. start time 0850 end time 0904 mac anesthesia. 70mg propofol given. tolerated procedure well. addendum on 08-24-17 diagnosis palpitations asa 2 JOLIE COY CRNA August 24, 2017 08:10
== END ==
LOC: CATH 06:54
PROVIDERS: ATTEND Internal Medicine Cardiovascular Disease
DX: R00.2 Palpitations (principal); E66.9 Obesity, unspecified; H91.90 Unspecified hearing loss, unspecified ear; N92.0 Excessive and frequent menstruation with regular cycle; Z88.0 Allergy status to penicillin; Z88.2 Allergy status to sulfonamides; Z88.5 Allergy status to narcotic agent; Z86.73 Personal history of transient ischemic attack (TIA), and cerebral infarction without residual deficits; Z68.41 Body mass index [BMI] 40.0-44.9, adult
CPT/HCPCS: 33282; 93312; 93320; 93325

== ENCOUNTER → 2017-08-23 | Outpatient (CLI) | payer MEDICAID ==
[~2017-08-23] MED LIST changes: +LIDOCAINE 1% INJ 20 ML 20 ML VIAL ONE; +LIDOCAINE 2% VISCOUS 15 ML UDC ONE; +MIDAZOLAM 5 MG/5 ML (VERSED) VIAL ONE; -NS IV 1000 ML 1,000 ML IV SCH; +NS IV 1000 ML 1,000 ML ONE; +fentaNYL INJECTION 100 MCG/2 ML AMP ONE; +proPOfol 200 MG/20 ML (DIPRIVAN) VIAL IV ONE
--- NOTE | 2017-08-23 15:05 | OPERATIVE REPORT ---
DATE OF SERVICE: 08/23/2017 PREOPERATIVE DIAGNOSIS: Palpitations. POSTOPERATIVE DIAGNOSIS: Palpitations. PROCEDURE: Implantable loop recorder implantation. INDICATIONS: The patient is a 32-year-old lady, who has been having palpitations that are infrequent, but quite bothersome to her. She also has a history of a stroke from which she has recovered. This, apparently, was in 2013 and she has been on aspirin therapy for that. Implantable loop recorder implantation was carried out today to evaluate for any significant arrhythmia. DESCRIPTION OF PROCEDURE: Informed consent was obtained. [facility] The left prepectoral area was prepared and draped in usual sterile fashion. Lidocaine 1% with local anesthesia. We used the tools provided with the implantable loop recorder to make a small incision just to the left of the sternum in the fourth intercostal space and the tool provided with the implantable loop recorder was used to make a subcutaneous pocket into which the implantable loop recorder was placed and the incision was closed with Dermabond. She tolerated the procedure well. The device is Motiga Reveal LINQ with serial #[id number]. Job ID: [id number] DocumentID: [id number] Dictated Date: 08/23/2017 09:45:41 Electronic Tester Date: 08/23/2017 15:04:48 Dictated By: BONI VALDIVIA MD, MA, FACP, FACC,
== END ==
LOC: CARD 06:52
PROVIDERS: ATTEND Nurse Practitioner Family
DX: Q21.1 Atrial septal defect (principal); I63.8 Other cerebral infarction; R00.2 Palpitations; R06.02 Shortness of breath
CPT/HCPCS: 93306

== ENCOUNTER 2017-08-24 10:30 | Outpatient (CLI) | payer MEDICAID ==
[~2017-08-24] VITALS: Ht 154.9 cm; Wt 90.7 kg
[~2017-08-24 10:30] MED LIST changes: -LIDOCAINE 1% INJ 20 ML 20 ML VIAL ONE; -LIDOCAINE 2% VISCOUS 15 ML UDC ONE; -METH4TAB PO; -MIDAZOLAM 5 MG/5 ML (VERSED) VIAL ONE; -NS IV 1000 ML 1,000 ML ONE; -POLY255P; -PRD20T PO; -fentaNYL INJECTION 100 MCG/2 ML AMP ONE; -proPOfol 200 MG/20 ML (DIPRIVAN) VIAL IV ONE
== END 2017-08-24 11:35 ==
LOC: PREOP 10:30
PROVIDERS: ATTEND Surgery
DX: Z01.818 Encounter for other preprocedural examination (principal); K92.1 Melena

== ENCOUNTER 2017-08-30 08:16 | Day surgery (SDC) | payer MEDICAID ==
[~2017-08-30] VITALS: Ht 154.9 cm; Wt 90.7 kg
[2017-08-30] MEDS ORDERED: LACTATED RINGERS 1,000 ML IV STA (08:25)
[2017-08-30] MEDS ORDERED: LACTATED RINGERS 1,000 ML IV ONE (08:39)
[2017-08-30 09:05] VITALS: BP 107/82
--- NOTE | 2017-08-30 09:32 | Progress Note-Pre Operative ---
Pre-Operative Progress Note H&P Reviewed The H&P was reviewed, patient examined and no changes noted. Date Seen by Provider: August 30, 2017 Time Seen by Provider: 09:32 Date H&P Reviewed: August 30, 2017 Time H&P Reviewed: 09:32 Pre-Operative Diagnosis: blood in stool, anal pain SHRAVAN WALSH DO August 30, 2017 09:32
[2017-08-30] MEDS ORDERED: MIDAZOLAM 2 MG/2 ML (VERSED) VIAL ONE (10:01)
[2017-08-30] MEDS ORDERED: PROPOFOL INJECTION 50 ML IV ONE ×2 (10:01→10:18)
--- NOTE | 2017-08-30 10:39 | Anesthesia-General Post-Op ---
MAC Patient Condition Mental Status/LOC: Same as Preop Cardiovascular: Satisfactory Nausea/Vomiting: Absent Respiratory: Satisfactory Pain: Controlled Complications: Absent Post Op Complications Complications None Follow Up Care/Instructions Patient Instructions None needed. Anesthesiology Discharge Order Discharge Order Patient is doing well, no complaints, stable vital signs, no apparent adverse anesthesia problems. No complications reported per nursing. MAEGAN BURNETT CRNA August 30, 2017 10:39
--- NOTE | 2017-08-30 10:41 | Progress Note-Post Operative ---
Post-Operative Progess Note Surgeon (s)/Senior Qc Technician (s) Surgeon SHRAVAN WALSH DO Senior Qc Technician: na Pre-Operative Diagnosis blood in stool, anal pain Post-Operative Diagnosis normal colon Procedure & Operative Findings Date of Procedure 08/30/17 Procedure Performed/Findings colonoscopy Anesthesia Type per [facility] Estimated Blood Loss Estimated blood loss (mL): none Specimens/Packing Specimens Removed none SHRAVAN WALSH DO August 30, 2017 10:41
--- NOTE | 2017-08-30 10:42 | Discharge Inst-Simple/Standard ---
Discharge Inst-Standard Patient Instructions/Follow Up Plan of Care/Instructions/FU: 2 weeks Muriel Activity as Tolerated: Yes Discharge Diet: Regular Diet (high fiber) SHRAVAN WALSH DO August 30, 2017 10:42
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
--- OUTSIDE RECORDS SUMMARY | 2017-08-30 10:52 | XMS REPORT | Continuity of Care Document ---
Author Author [facility] Organization [facility] Address Unknown Phone Unavailable Allergies Active Description Code Type Severity Reaction Onset Reported/Identified Relationship to Patient Clinical Status Yes codeine [id number] Drug Allergy Severe ITCHING, HIVES, 11/03/2014 Yes latex latex Drug Allergy Unknown [...] Drug Allergy Mild RASH 04/15/2015 Yes acetaminophen [id number] Drug Allergy Severe THROAT SWELLING 12/31/2015 Yes hydrocodone [id number] Drug Allergy Severe THROAT SWELLING 12/31/2015 Yes latex [id number] Drug Allergy Severe BLISTERS 08/24/2017 Yes penicillin [id number] Drug Allergy Severe ITCHING 08/24/2017 Yes Sulfa (Sulfonamide Antibiotics) [id number] Drug Allergy Unknown RASH 2017 Medications There is no data. Problems Date Dx Coded Attending Type Code Diagnosis Diagnosed By 10/28/2014 KADIE NEVAREZ MD Ot 620.2 10/28/2014 KADIE NEVAREZ MD Ot 626.4 11/03/2014 ASHLEY OBRIEN MD Ot 786.50 11/03/2014 ASHLEY OBRIEN MD Ot V12.54 12/24/2014 KADIE NEVAREZ MD Ot 620.2 12/24/2014 KADIE NEVAREZ MD Ot 626.4 01/08/2015 NWAGWU, ISIDORE O BOILER INSPECTOR Ot 745.5 SECUNDUM ATRIAL SEPT DEF 01/08/2015 NWAGWU, ISIDORE O BOILER INSPECTOR Ot 780.4 DIZZINESS AND GIDDINESS 01/08/2015 NWAGWU, ISIDORE O BOILER INSPECTOR Ot 780.79 OTH MALAISE FATIGUE 01/08/2015 NWAGWU, ISIDORE O BOILER INSPECTOR Ot 785.1 PALPITATIONS 01/08/2015 NWAGWU, ISIDORE O BOILER INSPECTOR Ot 786.50 CHEST PAIN NOS 01/08/2015 NWAGWU, ISIDORE O BOILER INSPECTOR Ot V12.54 PERSONAL HX OF TIA, CEREBRAL INFARCTION 01/25/2015 LAWRENCE WHITESIDE BOILER INSPECTOR Ot E11.9 TYPE 2 DIABETES MELLITUS WITHOUT COMPLIC 01/25/2015 LAWRENCE WHITESIDE BOILER INSPECTOR Ot N39.0 URINARY TRACT INFECTION, SITE NOT SPECIF 01/25/2015 LAWRENCE WHITESIDE BOILER INSPECTOR Ot R06.02 SHORTNESS OF BREATH 02/04/2015 NWAGWU, ISIDORE O BOILER INSPECTOR Ot 745.5 02/04/2015 NWAGWU, ISIDORE O BOILER INSPECTOR Ot 780.4 02/04/2015 NWAGWU, ISIDORE O BOILER INSPECTOR Ot 780.79 02/04/2015 NWAGWU, ISIDORE O BOILER INSPECTOR Ot 785.1 02/04/2015 NWAGWU, ISIDORE O BOILER INSPECTOR Ot 786.50 02/04/2015 NWAGWU, ISIDORE O BOILER INSPECTOR Ot V12.54 02/21/2015 JARED FISCHER, KENYATTA Andrews [...] MD Ot R40.4 03/29/2015 NWAGWU, ISIDORE O BOILER INSPECTOR Ot 745.5 03/29/2015 NWAGWU, ISIDORE O BOILER INSPECTOR Ot 780.4 03/29/2015 NWAGWU, ISIDORE O BOILER INSPECTOR Ot 780.79 03/29/2015 NWAGWU, ISIDORE O BOILER INSPECTOR Ot 785.1 03/29/2015 NWAGWU, ISIDORE O BOILER INSPECTOR Ot 786.50 03/29/2015 NWAGWU, ISIDORE O BOILER INSPECTOR Ot V12.54 03/29/2015 EAGLE FISCHER, VALERIA Pagan [...] ENCO 03/29/2015 Marianne FISCHER, Sonya Potts Z79.82 CARE HOME (CURRENT) USE OF ASPIRIN 03/31/2015 EAGLE FISCHER, [...] JARED FISCHER, KENYATTA Andrews Ot Z79.899 OTHER PROVISIONING ANALYST (CURRENT) DRUG THERAPY 05/05/2015 JARED FISCHER, KENYATTA [...] LV BEF SEE 10/17/2015 NWAGWU, ISIDORE O BOILER INSPECTOR Ot 745.5 10/17/2015 NWAGWU, ISIDORE O BOILER INSPECTOR Ot 780.4 10/17/2015 NWAGWU, ISIDORE O BOILER INSPECTOR Ot 780.79 10/17/2015 NWAGWU, ISIDORE O BOILER INSPECTOR Ot 785.1 10/17/2015 NWAGWU, ISIDORE O BOILER INSPECTOR Ot 786.50 10/17/2015 NWAGWU, ISIDORE O BOILER INSPECTOR Ot V12.54 10/17/2015 KADIE NEVAREZ MD Ot [...] 10/17/2015 KENYATTA COLEMAN MD Ot Z79.899 OTHER CARE HOME (CURRENT) DRUG THERAPY 10/17/2015 KENYATTA COLEMAN MD [...] SPLENOMEGALY, NOT ELSEWHERE CLASSIFIED 11/20/2015 LAWRENCE WHITESIDE BOILER INSPECTOR Ot J06.9 ACUTE UPPER RESPIRATORY INFECTION, UNSPE 11/20/2015 LAWRENCE WHITESIDE BOILER INSPECTOR Ot J40 BRONCHITIS, NOT SPECIFIED ACUTE OR CH 11/20/2015 LAWRENCE WHITESIDE BOILER INSPECTOR Ot R05 COUGH 11/24/2015 LAWRENCE WHITESIDE BOILER INSPECTOR Ot J06.9 ACUTE UPPER RESPIRATORY INFECTION, UNSPE 11/24/2015 LAWRENCE WHITESIDE BOILER INSPECTOR Ot J40 BRONCHITIS, NOT SPECIFIED ACUTE OR CH 11/24/2015 LAWRENCE WHITESIDE BOILER INSPECTOR Ot R05 COUGH 12/31/2015 NWAGWU, ISIDORE O BOILER INSPECTOR Ot 745.5 12/31/2015 NWAGWU, ISIDORE O BOILER INSPECTOR Ot 780.4 12/31/2015 NWAGWU, ISIDORE O BOILER INSPECTOR Ot 780.79 12/31/2015 NWAGWU, ISIDORE O BOILER INSPECTOR Ot 785.1 12/31/2015 NWAGWU, ISIDORE O BOILER INSPECTOR Ot 786.50 12/31/2015 NWAGWU, ISIDORE O BOILER INSPECTOR Ot V12.54 12/31/2015 KADIE NEVAREZ MD Ot [...] 12/31/2015 KENYATTA COLEMAN MD Ot Z79.899 OTHER PROVISIONING ANALYST (CURRENT) DRUG THERAPY 12/31/2015 KENYATTA COLEMAN MD Ot Z86.73 PRSNL HX OF TIA (TIA), AND CEREB INFRC W 12/31/2015 KADIE NEVAREZ MD Ot R16.1 SPLENOMEGALY, NOT ELSEWHERE CLASSIFIED 12/31/2015 NWAGWU, ISIDORE O BOILER INSPECTOR Ot 745.5 12/31/2015 NWAGWU, ISIDORE O BOILER INSPECTOR Ot 780.4 12/31/2015 NWAGWU, ISIDORE O BOILER INSPECTOR Ot 780.79 12/31/2015 NWAGWU, ISIDORE O BOILER INSPECTOR Ot 785.1 12/31/2015 NWAGWU, ISIDORE O BOILER INSPECTOR Ot 786.50 12/31/2015 NWAGWU, ISIDORE O BOILER INSPECTOR Ot V12.54 12/31/2015 KENYATTA COLEMAN MD Ot [...] 12/31/2015 KENYATTA COLEMAN MD Ot Z79.899 OTHER CARE HOME (CURRENT) DRUG THERAPY 12/31/2015 KENYATTA COLEMAN MD Ot Z86.73 PRSNL HX OF TIA (TIA), AND CEREB INFRC W 12/31/2015 NWAGWU, ISIDORE O BOILER INSPECTOR Ot 745.5 12/31/2015 NWAGWU, ISIDORE O BOILER INSPECTOR Ot 780.4 12/31/2015 NWAGWU, ISIDORE O BOILER INSPECTOR Ot 780.79 12/31/2015 NWAGWU, ISIDORE O BOILER INSPECTOR Ot 785.1 12/31/2015 NWAGWU, ISIDORE O BOILER INSPECTOR Ot 786.50 12/31/2015 NWAGWU, ISIDORE O BOILER INSPECTOR Ot V12.54 12/31/2015 KENYATTA COLEMAN MD Ot [...] 12/31/2015 KENYATTA COLEMAN MD Ot Z79.899 OTHER PROVISIONING ANALYST (CURRENT) DRUG THERAPY 12/31/2015 KENYATTA COLEMAN MD [...] 01/01/2016 HIEU HINOJOSA MD Ot Z79.899 OTHER PROVISIONING ANALYST (CURRENT) DRUG THERAPY 01/01/2016 HIEU HINOJOSA MD [...] 01/01/2016 HIEU HINOJOSA MD Ot Z79.899 OTHER CARE HOME (CURRENT) DRUG THERAPY 01/01/2016 HIEU HINOJOSA MD, Ot Z86.718 PERSONAL HISTORY OF OTHER VENOUS THROMBO 01/02/2016 NWAGWU, ISIDORE O BOILER INSPECTOR Ot 745.5 01/02/2016 NWAGWU, ISIDORE O BOILER INSPECTOR Ot 780.4 01/02/2016 NWAGWU, ISIDORE O BOILER INSPECTOR Ot 780.79 01/02/2016 NWAGWU, ISIDORE O BOILER INSPECTOR Ot 785.1 01/02/2016 NWAGWU, ISIDORE O BOILER INSPECTOR Ot 786.50 01/02/2016 NWAGWU, ISIDORE O BOILER INSPECTOR Ot V12.54 01/02/2016 KADIE NEVAREZ MD Ot [...] 01/02/2016 KENYATTA COLEMAN MD Ot Z79.899 OTHER CARE HOME (CURRENT) DRUG THERAPY 01/02/2016 KENYATTA COLEMAN MD Ot Z86.73 PRSNL HX OF TIA (TIA), AND CEREB INFRC W 01/02/2016 KADIE NEVAREZ MD Ot R16.1 SPLENOMEGALY, NOT ELSEWHERE CLASSIFIED 04/12/2016 NWAGWU, ISIDORE O BOILER INSPECTOR Ot 745.5 04/12/2016 NWAGWU, ISIDORE O BOILER INSPECTOR Ot 780.4 04/12/2016 NWAGWU, ISIDORE O BOILER INSPECTOR Ot 780.79 04/12/2016 NWAGWU, ISIDORE O BOILER INSPECTOR Ot 785.1 04/12/2016 NWAGWU, ISIDORE O BOILER INSPECTOR Ot 786.50 04/12/2016 NWAGWU, ISIDORE O BOILER INSPECTOR Ot V12.54 04/12/2016 KADIE NEVAREZ MD Ot [...] 04/12/2016 KENYATTA COLEMAN MD Ot Z79.899 OTHER PROVISIONING ANALYST (CURRENT) DRUG THERAPY 04/12/2016 KENYATTA COLEMAN MD, Ot Z86.73 PRSNL HX OF TIA (TIA), AND CEREB INFRC W 04/12/2016 GERI FISCHER, KADIE Richardson Ot R16.1 SPLENOMEGALY, NOT ELSEWHERE CLASSIFIED 04/12/2016 JUAN GONZALEZ DO Ot E11.9 TYPE 2 DIABETES MELLITUS WITHOUT COMPLIC 04/12/2016 JUAN GONZALEZ DO Ot S93.401A SPRAIN OF UNSPECIFIED LIGAMENT OF RIGHT 04/12/2016 JUAN GONZALEZ DO Ot S99.911A UNSPECIFIED INJURY OF RIGHT ANKLE, INITI 04/12/2016 JUAN GONZALEZ DO Ot W17.2XXA FALL INTO HOLE, INITIAL ENCOUNTER 04/12/2016 JUAN GONZALEZ DO Ot Y99.8 OTHER EXTERNAL CAUSE STATUS 04/12/2016 JUAN GONZALEZ DO Ot Z86.718 PERSONAL HISTORY OF OTHER VENOUS THROMBO 04/14/2016 JUAN GONZALEZ DO Ot E11.9 TYPE [...] NAUSEA WITH VOMITING, UNSPECIFIED 08/23/2016 Ot Z79.82 CARE HOME ( CURRENT) USE OF ASPIRIN 08/23/2016 Ot Z79.899 OTHER PROVISIONING ANALYST (CURRENT) DRUG THERAPY 08/23/2016 Ot Z86.718 PERSONAL HISTORY OF OTHER VENOUS THROMBO 08/23/2016 Ot Z87.442 PERSONAL HISTORY OF URINARY CALCULI 08/23/2016 Ot Z95.828 PRESENCE OF OTHER VASCULAR IMPLANTS AND 08/23/2016 LAWRENCE WHITESIDE APRN Ot E11.9 TYPE 2 DIABETES MELLITUS WITHOUT COMPLIC 08/23/2016 LAWRENCE WHITESIDE APRN Ot R10.31 RIGHT LOWER QUADRANT PAIN 08/23/2016 LAWRENCE WHITESIDE APRN Ot Z79.82 CARE HOME (CURRENT) USE OF ASPIRIN 08/23/2016 LAWRENCE WHITESIDE APRN Ot Z79.899 OTHER CARE HOME (CURRENT) DRUG THERAPY 08/23/2016 LAWRENCE WHITESIDE APRN Ot Z86.718 PERSONAL HISTORY OF OTHER VENOUS THROMBO 08/24/2016 LAWRENCE WHITESIDE APRN Ot E11.9 TYPE 2 DIABETES MELLITUS WITHOUT COMPLIC 08/24/2016 LAWRENCE WHITESIDE APRN Ot R10.31 RIGHT LOWER QUADRANT PAIN 08/24/2016 LAWRENCE WHITESIDE APRN Ot Z79.82 PROVISIONING ANALYST (CURRENT) USE OF ASPIRIN 08/24/2016 LAWRENCE WHITESIDE APRN Ot Z79.899 OTHER PROVISIONING ANALYST (CURRENT) DRUG THERAPY 08/24/2016 LAWRENCE WHITESIDE APRN Ot Z86.718 PERSONAL HISTORY OF OTHER VENOUS THROMBO 08/25/2016 LAWRENCE WHITESIDE APRN Ot E11.9 TYPE 2 DIABETES MELLITUS WITHOUT COMPLIC 08/25/2016 LAWRENCE WHITESIDE APRN Ot R10.31 RIGHT LOWER QUADRANT PAIN 08/25/2016 LAWRENCE WHITESIDE APRN Ot Z79.82 PROVISIONING ANALYST (CURRENT) USE OF ASPIRIN 08/25/2016 LAWRENCE WHITESIDE APRN Ot Z79.899 OTHER PROVISIONING ANALYST (CURRENT) DRUG THERAPY 08/25/2016 LAWRENCE WHITESIDE APRN Ot Z86.718 PERSONAL HISTORY OF OTHER VENOUS THROMBO 11/22/2016 LAWRENCE WHITESIDE APRN Ot E11.9 TYPE 2 DIABETES MELLITUS WITHOUT COMPLIC 11/22/2016 LAWRENCE WHITESIDE APRN Ot F17.210 NICOTINE DEPENDENCE, CIGARETTES, UNCOMPL 11/22/2016 LAWRENCE WHITESDIE APRN Ot F31.9 BIPOLAR DISORDER, UNSPECIFIED 11/22/2016 [...] Ot J45.909 UNSPECIFIED ASTHMA, UNCOMPLICATED 11/22/2016 LAWRENCE WHITSEIDE APRN Ot M25.561 PAIN IN RIGHT KNEE 11/22/2016 LAWRENCE WHITESIDE APRN Ot M54.9 DORSALGIA, UNSPECIFIED 11/22/2016 LAWRENCE WHITESIDE APRN Ot M79.604 PAIN IN RIGHT LEG 11/22/2016 LAWRENCE WHITESIDE APRN Ot W51.XXXA ACCIDENTAL STRIKE OR BUMPED INTO BY ANOT 11/22/2016 LAWRENCE WHITESIDE APRN Ot Z79.82 CARE HOME (CURRENT) USE OF ASPIRIN 11/22/2016 LAWRENCE WHITESIDE APRN Ot Z82.49 FAMILY HX OF ISCHEM HEART DIS AND OTH DI 11/22/2016 LAWRENCE WHITESIDE APRN Ot Z86.718 PERSONAL HISTORY OF OTHER VENOUS THROMBO 11/22/2016 LAWRENCE WHITESIDE BOILER INSPECTOR Ot Z86.73 PRSNL HX OF TIA (TIA), AND CEREB INFRC W 11/22/2016 LAWRENCE WHITESIDE BOILER INSPECTOR Ot Z95.828 PRESENCE OF OTHER VASCULAR IMPLANTS AND 11/22/2016 LAWRENCE WHITESIDE BOILER INSPECTOR Ot Z98.51 TUBAL LIGATION STATUS 01/25/2017 MAURIZIO [...] 01/27/2017 MARIA ELENA MORA MD Ot Z79.82 PROVISIONING ANALYST (CURRENT) USE OF ASPIRIN 01/27/2017 MARIA ELENA MORA MD Ot Z82.49 FAMILY HX OF ISCHEM HEART DIS AND OTH DI 01/27/2017 MARIA ELENA MORA MD Ot Z86.718 PERSONAL HISTORY OF OTHER VENOUS THROMBO 01/27/2017 MARIA ELENA MORA MD Ot Z86.73 PRSNL HX OF TIA (TIA), AND CEREB INFRC W 01/27/2017 MARIA ELENA MORA MD, Ot Z87.19 PERSONAL HISTORY OF OTHER DISEASES OF TH 01/27/2017 MARIA ELENA MORA MD, Ot Z87.442 PERSONAL HISTORY OF URINARY CALCULI 01/27/2017 MARIA ELENA MORA MD, Ot Z98.51 TUBAL LIGATION STATUS 01/31/2017 MARIA ELENA MORA MD Ot E11.9 TYPE 2 DIABETES MELLITUS WITHOUT COMPLIC 01/31/2017 MARIA ELENA MORA MD Ot F31.9 BIPOLAR DISORDER, UNSPECIFIED 01/31/2017 MARIA ELENA MORA MD Ot F41.9 ANXIETY DISORDER, UNSPECIFIED 01/31/2017 MARIA ELENA MORA MD Ot F43.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 DISORDER, UNSPECIF 01/31/2017 MARIA ELENA MORA MD Ot F90.9 ATTENTION-DEFICIT HYPERACTIVITY DISORDER 01/31/2017 MARIA ELENA MORA MD Ot G44.209 TENSION-TYPE HEADACHE, UNSPECIFIED, NOT 01/31/2017 MARIA ELENA MORA MD Ot G89.18 OTHER ACUTE POSTPROCEDURAL PAIN 01/31/2017 MARIA ELENA MORA MD Ot J45.909 UNSPECIFIED ASTHMA, UNCOMPLICATED 01/31/2017 MARIA ELENA MORA MD Ot R20.2 PARESTHESIA OF SKIN 01/31/2017 MARIA ELENA MORA MD Ot R51 HEADACHE 01/31/2017 MARIA ELENA MORA MD Ot Z77.22 CNTCT W AND EXPSR TO ENVIRON TOBACCO SMO 01/31/2017 MARIA ELENA MORA MD Ot Z79.82 PROVISIONING ANALYST (CURRENT) USE OF ASPIRIN 01/31/2017 MARIA ELENA MORA MD Ot Z82.49 FAMILY HX OF ISCHEM HEART DIS AND OTH DI 01/31/2017 MARIA ELENA MORA MD Ot Z86.718 PERSONAL HISTORY OF OTHER VENOUS THROMBO 01/31/2017 MARIA ELENA MORA MD Ot Z86.73 PRSNL HX OF TIA (TIA), AND CEREB INFRC W 01/31/2017 MORGAN FISCHER, MARIA ELENA Mao Ot Z87.19 PERSONAL HISTORY OF OTHER DISEASES OF TH 01/31/2017 MARIA ELENA MORA MD Ot Z87.442 PERSONAL HISTORY OF URINARY [...] CONTRACEPTI 03/24/2017 LAWRENCE WHITESIDE APRN Ot Z79.82 CARE HOME (CURRENT) USE OF ASPIRIN 03/24/2017 LAWRENCE WHITESIDE [...] APRN Ot Z98.51 TUBAL LIGATION STATUS 04/17/2017 SANTINO LOPEZ MD Ot E11.9 TYPE 2 DIABETES MELLITUS WITHOUT COMPLIC 04/17/2017 SANTINO LOPEZ MD Ot F31.9 BIPOLAR DISORDER, UNSPECIFIED 04/17/2017 SANTINO LOPEZ MD Ot F41.9 ANXIETY DISORDER, UNSPECIFIED 04/17/2017 SANTINO LOPEZ MD Ot F43.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 DISORDER, UNSPECIF 04/17/2017 SANTINO LOPEZ MD Ot G43.909 MIGRAINE, UNSP, NOT INTRACTABLE, WITHOUT 04/17/2017 SANTINO LOPEZ MD Ot J45.909 UNSPECIFIED ASTHMA, UNCOMPLICATED 04/17/2017 SANTINO LOPEZ MD Ot R51 HEADACHE 04/17/2017 SANTINO LOPEZ MD Ot S06.0X9A CONCUSSION W LOSS OF CONSCIOUSNESS OF UN 04/17/2017 SANTINO LOPEZ MD Ot W01.0XXA FALL SAME [...] Z87.19 PERSONAL HISTORY OF OTHER DISEASES OF 04/17/2017 SANTINO LOPEZ MD, Ot Z87.442 PERSONAL HISTORY OF URINARY CALCULI 04/17/2017 SANTINO LOPEZ MD Ot Z95.828 PRESENCE OF OTHER VASCULAR IMPLANTS AND 04/17/2017 SANTINO LOPEZ MD Ot Z97.5 PRESENCE OF (INTRAUTERINE) CONTRACEPTIVE 04/17/2017 SANTINO LOPEZ MD Ot Z98.51 TUBAL LIGATION STATUS 04/19/2017 SANTINO LOPEZ MD Ot E11.9 TYPE 2 DIABETES MELLITUS WITHOUT COMPLIC 04/19/2017 SANTINO LOPEZ MD Ot F31.9 BIPOLAR DISORDER, UNSPECIFIED 04/19/2017 SANTINO LOPEZ MD, Ot F41.9 ANXIETY DISORDER, UNSPECIFIED 04/19/2017 SANTINO LOPEZ MD, Ot F43.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 DISORDER, UNSPECIF 04/19/2017 [...] Y92.002 BATHRM OF UNSP NON-INSTITUT RESDNCE SNGL 04/19/2017 SANTINO LOPEZ MD, Ot Z77.22 CNTCT W AND EXPSR TO ENVIRON TOBACCO SMO 04/19/2017 SANTINO LOPEZ MD Ot Z82.49 FAMILY HX OF ISCHEM HEART DIS AND OTH DI 04/19/2017 SANTINO LOPEZ MD, Ot Z86.718 PERSONAL HISTORY OF OTHER VENOUS THROMBO 04/19/2017 SANTINO LOPEZ MD Ot Z86.73 PRSNL HX OF TIA (TIA), AND CEREB INFRC W 04/19/2017 SANTINO LOPEZ MD, Ot Z87.19 PERSONAL HISTORY OF OTHER DISEASES OF TH 04/19/2017 SANTINO LOPEZ MD, Ot Z87.442 PERSONAL HISTORY OF URINARY CALCULI 04/19/2017 SANTINO LOPEZ MD, Ot Z95.828 PRESENCE OF OTHER VASCULAR IMPLANTS AND 04/19/2017 SANTINO LOPEZ MD Ot Z97.5 PRESENCE OF (INTRAUTERINE) CONTRACEPTIVE 04/19/2017 SANTINO LOPEZ MD Ot Z98.51 TUBAL LIGATION STATUS 06/14/2017 JUAN GONZALEZ DO Ot E11.9 TYPE 2 DIABETES MELLITUS WITHOUT COMPLIC 06/14/2017 JUAN GONZALEZ DO Ot F17.210 NICOTINE DEPENDENCE, CIGARETTES, UNCOMPL 06/14/2017 JUAN GONZALEZ DO Ot F32.9 MAJOR DEPRESSIVE DISORDER, SINGLE EPISOD 06/14/2017 JUAN GONZALEZ DO Ot F41.9 ANXIETY DISORDER, UNSPECIFIED 06/14/2017 JUAN GONZALEZ DO Ot F43.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 DISORDER, UNSPECIF 06/14/2017 JUAN GONZALEZ DO Ot F90.9 ATTENTION-DEFICIT HYPERACTIVITY DISORDER 06/14/2017 JUAN GONZALEZ DO Ot G89.29 OTHER CHRONIC PAIN 06/14/2017 JUAN GONZALEZ DO Ot I25.10 ATHSCL HEART DISEASE OF [place] CORONARY 06/14/2017 JUAN GONZALEZ DO Ot J45.909 UNSPECIFIED ASTHMA, UNCOMPLICATED 06/14/2017 JUAN GONZALEZ DO Ot M54.5 LOW BACK PAIN 06/14/2017 JUAN GONZALEZ DO Ot S39.012A STRAIN OF MUSCLE, FASCIA AND TENDON OF L 06/14/2017 JUAN GONZALEZ DO Ot W06.XXXA FALL FROM BED, INITIAL ENCOUNTER 06/14/2017 JUAN GONZALEZ DO, Ot W22.8XXA STRIKING AGAINST OR STRUCK BY OTHER OBJE 06/14/2017 JUAN GONZALEZ DO Ot Z82.49 FAMILY HX OF ISCHEM HEART DIS AND OTH DI 06/14/2017 JUAN GONZALEZ DO, Ot Z86.718 PERSONAL HISTORY OF OTHER VENOUS THROMBO 06/14/2017 JUAN GONZALEZ DO Ot Z86.73 PRSNL HX OF TIA (TIA), AND CEREB INFRC W 06/14/2017 JUAN GONZALEZ DO, Ot Z87.442 PERSONAL HISTORY OF URINARY CALCULI 06/14/2017 JUAN GONZALEZ DO Ot Z88.0 ALLERGY STATUS TO PENICILLIN 06/14/2017 JUAN GONZALEZ DO Ot Z88.2 ALLERGY STATUS TO SULFONAMIDES STATUS 06/14/2017 LISA JUAN HURTADO Ot Z88.5 ALLERGY STATUS TO NARCOTIC AGENT STATUS 06/14/2017 LISA JUAN HURTADO Ot Z90.89 ACQUIRED ABSENCE OF OTHER ORGANS 06/14/2017 JUAN GONZALEZ DO Ot Z91.040 LATEX ALLERGY STATUS 06/14/2017 LISA JUAN HURTADO Ot Z98.51 TUBAL LIGATION STATUS 06/16/2017 LISA JUAN HURTADO Ot E11.9 TYPE 2 DIABETES MELLITUS WITHOUT COMPLIC 06/16/2017 LISA JUAN HURTADO Ot F17.210 NICOTINE DEPENDENCE, CIGARETTES, UNCOMPL 06/16/2017 JUAN GONZALEZ DO Ot F32.9 MAJOR DEPRESSIVE DISORDER, SINGLE EPISOD 06/16/2017 LISA JUAN HURTADO Ot F41.9 ANXIETY DISORDER, UNSPECIFIED 06/16/2017 LISA JUAN HURTADO Ot F43.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 DISORDER, UNSPECIF 06/16/2017 LISA JUAN HURTADO Ot F90.9 ATTENTION-DEFICIT HYPERACTIVITY DISORDER 06/16/2017 LISA JUAN HURTADO Ot G89.29 OTHER CHRONIC PAIN 06/16/2017 JUAN GONZALEZ DO Ot I25.10 ATHSCL HEART DISEASE OF [place] CORONARY 06/16/2017 JUAN GONZALEZ DO Ot J45.909 UNSPECIFIED ASTHMA, UNCOMPLICATED 06/16/2017 LISA JUAN HURTADO Ot M54.5 LOW BACK PAIN 06/16/2017 LISA JUAN HURTADO Ot S39.012A STRAIN OF MUSCLE, FASCIA AND TENDON OF L 06/16/2017 JUAN GONZALEZ DO, Ot W06.XXXA FALL FROM BED, INITIAL ENCOUNTER 06/16/2017 JUAN GONZALEZ DO Ot W22.8XXA STRIKING AGAINST OR STRUCK BY OTHER OBJE 06/16/2017 JUAN GONZALEZ DO, Ot Z82.49 FAMILY HX OF ISCHEM HEART DIS AND OTH DI 06/16/2017 JUAN GONZALEZ DO Ot Z86.718 PERSONAL HISTORY OF OTHER VENOUS THROMBO 06/16/2017 JUAN GONZALEZ DO Ot Z86.73 PRSNL HX OF TIA (TIA), AND CEREB INFRC W 06/16/2017 JUAN GONZALEZ DO Ot Z87.442 PERSONAL HISTORY OF URINARY CALCULI 06/16/2017 JUAN GONZALEZ DO Ot Z88.0 ALLERGY STATUS TO PENICILLIN 06/16/2017 JUAN GONZALEZ DO Ot Z88.2 ALLERGY STATUS TO SULFONAMIDES STATUS 06/16/2017 JUAN GONZALEZ DO Ot Z88.5 ALLERGY STATUS TO NARCOTIC AGENT STATUS 06/16/2017 LISA JUAN HURTADO Ot Z90.89 ACQUIRED ABSENCE OF OTHER ORGANS 06/16/2017 LISA , JUAN Andrews Ot Z91.040 LATEX ALLERGY STATUS 06/16/2017 LISA JUAN HURTADO Ot Z98.51 TUBAL LIGATION STATUS 07/31/2017 NWAGWU, ISIDORE O BOILER INSPECTOR Ot 745.5 07/31/2017 NWAGWU, ISIDORE O BOILER INSPECTOR Ot 780.4 07/31/2017 NWAGWU, ISIDORE O BOILER INSPECTOR Ot 780.79 07/31/2017 NWAGWU, ISIDORE O BOILER INSPECTOR Ot 785.1 07/31/2017 NWAGWU, ISIDORE O BOILER INSPECTOR Ot 786.50 07/31/2017 NWAGWU, ISIDORE O BOILER INSPECTOR Ot V12.54 07/31/2017 GERI FISCHER, KADIE Richardson Ot R40.4 TRANSIENT ALTERATION OF AWARENESS 07/31/2017 KENYATTA COLEMAN MD Ot D64.9 ANEMIA, UNSPECIFIED 07/31/2017 KENYATTA COLEMAN MD Ot E11.9 TYPE 2 DIABETES MELLITUS WITHOUT COMPLIC 07/31/2017 KENYATTA COLEMAN MD Ot E66.9 OBESITY, UNSPECIFIED 07/31/2017 KENYATTA COLEMAN MD Ot F17.210 NICOTINE DEPENDENCE, CIGARETTES, UNCOMPL 07/31/2017 KENYATTA COLEMAN MD Ot I51.9 HEART DISEASE, UNSPECIFIED 07/31/2017 KENYATTA COLEMAN MD Ot M54.5 LOW BACK PAIN 07/31/2017 KENYATTA COLEMAN MD Ot Z79.899 OTHER CARE HOME (CURRENT) DRUG THERAPY 07/31/2017 KENYATTA COLEMAN MD Ot Z86.73 PRSNL HX OF TIA (TIA), AND CEREB INFRC W 07/31/2017 GERI FISCHER, KADIE Richardson Ot R16.1 SPLENOMEGALY, NOT ELSEWHERE CLASSIFIED 08/01/2017 NWAGWU, ISIDORE O BOILER INSPECTOR Ot 745.5 08/01/2017 NWAGWU, ISIDORE O BOILER INSPECTOR Ot 780.4 08/01/2017 NWAGWU, ISIDORE O BOILER INSPECTOR Ot 780.79 08/01/2017 NWAGWU, ISIDORE O BOILER INSPECTOR Ot 785.1 08/01/2017 NWAGWU, ISIDORE O BOILER INSPECTOR Ot 786.50 08/01/2017 NWAGWU, ISIDORE O BOILER INSPECTOR Ot V12.54 08/01/2017 JARED FISCHER, EKNYATTA Andrews Ot D64.9 ANEMIA, UNSPECIFIED 08/01/2017 JARED FISCHER, KENYATTA Andrews Ot E11.9 TYPE 2 DIABETES MELLITUS WITHOUT COMPLIC 08/01/2017 JARED FISCHER, KENYATTA Andrews Ot E66.9 OBESITY, UNSPECIFIED 08/01/2017 JARED FISCHER, KENYATTA Andrews Ot F17.210 NICOTINE DEPENDENCE, CIGARETTES, UNCOMPL 08/01/2017 KENYATTA COLEMAN MD Ot I51.9 HEART DISEASE, UNSPECIFIED 08/01/2017 JARED FISCHER, KENYATTA Andrews Ot M54.5 LOW BACK PAIN 08/01/2017 JARED FISCHER, KENYATTA Andrews Ot Z79.899 OTHER CARE HOME (CURRENT) DRUG THERAPY 08/01/2017 JARED FISCHER, KENYATTA Andrews Ot Z86.73 PRSNL HX OF TIA (TIA), AND CEREB INFRC W 08/01/2017 MARYLOU MOLINA Ot E11.9 TYPE 2 DIABETES MELLITUS WITHOUT COMPLIC 08/01/2017 MARYLOU MOLINA Ot E86.9 VOLUME DEPLETION, UNSPECIFIED 08/01/2017 MARYLOU MOLINA Ot F17.210 NICOTINE DEPENDENCE, CIGARETTES, UNCOMPL 08/01/2017 MARYLOU MOLINA Ot F31.9 BIPOLAR DISORDER, UNSPECIFIED 08/01/2017 MARYLOU MOLINA Ot F41.9 ANXIETY DISORDER, UNSPECIFIED 08/01/2017 MARYLOU MOLINA Ot F90.9 ATTENTION-DEFICIT HYPERACTIVITY DISORDER 08/01/2017 MARYLOU MOLINA Ot G43.909 MIGRAINE, UNSP, NOT INTRACTABLE, WITHOUT 08/01/2017 MARYLOU MOLINA Ot J45.909 UNSPECIFIED ASTHMA, UNCOMPLICATED 08/01/2017 MARYLOU MOLINA Ot R10.31 RIGHT LOWER QUADRANT PAIN 08/01/2017 MARYLOU MOLINA Ot Z82.49 FAMILY HX OF ISCHEM HEART DIS AND OTH DI 08/01/2017 MARYLOU MOLINA Ot Z86.718 PERSONAL HISTORY OF OTHER VENOUS THROMBO 08/01/2017 MARYLOU MOLINA Ot Z86.73 PRSNL HX OF TIA (TIA), AND CEREB INFRC W 08/01/2017 MARYLOU MOLINA Ot Z87.19 PERSONAL HISTORY OF OTHER DISEASES OF TH 08/01/2017 MARYLOU MOLINA Ot Z87.442 PERSONAL HISTORY OF URINARY CALCULI 08/01/2017 MARYLOU MOLINA Ot Z88.0 ALLERGY STATUS TO PENICILLIN 08/01/2017 MARYLOU MOLINA Ot Z88.2 ALLERGY STATUS TO SULFONAMIDES STATUS 08/01/2017 MARYLOU MOLINA Ot Z91.040 LATEX ALLERGY STATUS 08/01/2017 MARYLOU MOLINA Ot Z97.5 PRESENCE OF (INTRAUTERINE) CONTRACEPTIVE 08/01/2017 MARYLOU MOLINA Ot Z98.51 TUBAL LIGATION STATUS 08/02/2017 MARYLOU MOLINA Ot E11.9 TYPE 2 DIABETES MELLITUS WITHOUT COMPLIC 08/02/2017 MARYLOU MOLINA Ot E86.9 VOLUME DEPLETION, UNSPECIFIED 08/02/2017 MARYLOU MOLINA Ot F17.210 NICOTINE DEPENDENCE, CIGARETTES, UNCOMPL 08/02/2017 MARYLOU MOLINA Ot F31.9 BIPOLAR DISORDER, UNSPECIFIED 08/02/2017 MARYLOU MOLINA Ot F41.9 ANXIETY DISORDER, UNSPECIFIED 08/02/2017 MARYLOU MOLINA Ot F90.9 ATTENTION-DEFICIT HYPERACTIVITY DISORDER 08/02/2017 MARYLOU MOLINA Ot G43.909 MIGRAINE, UNSP, NOT INTRACTABLE, WITHOUT 08/02/2017 MARYLOU MOLINA Ot J45.909 UNSPECIFIED ASTHMA, UNCOMPLICATED 08/02/2017 MARYLOU MOLINA Ot R10.31 RIGHT LOWER QUADRANT PAIN 08/02/2017 MARYLOU MOLINA Ot Z82.49 FAMILY HX OF ISCHEM HEART DIS AND OTH DI 08/02/2017 MARYLOU MOLINA Ot Z86.718 PERSONAL HISTORY OF OTHER VENOUS THROMBO 08/02/2017 MARYLOU MOLINA Ot Z86.73 PRSNL HX OF TIA (TIA), AND CEREB INFRC W 08/02/2017 MARYLOU MOLINA Ot Z87.19 PERSONAL HISTORY OF OTHER DISEASES OF 08/02/2017 MARYLOU MOLINA Ot Z87.442 PERSONAL HISTORY OF URINARY CALCULI 08/02/2017 MARYLOU MOLINA Ot Z88.0 ALLERGY STATUS TO PENICILLIN 08/02/2017 MARYLOU MOLINA Ot Z88.2 ALLERGY STATUS TO SULFONAMIDES STATUS 08/02/2017 MARYLOU MOLINA Ot Z91.040 LATEX ALLERGY STATUS 08/02/2017 MARYLOU MOLINA Ot Z97.5 PRESENCE OF (INTRAUTERINE) CONTRACEPTIVE 08/02/2017 MARYLOU MOLINA Ot Z98.51 TUBAL LIGATION STATUS 08/17/2017 MARYLOU MOLINA Ot E11.40 TYPE 2 DIABETES MELLITUS WITH DIABETIC N 08/17/2017 MARYLOU MOLINA Ot F17.210 NICOTINE DEPENDENCE, CIGARETTES, UNCOMPL 08/17/2017 MARYLOU MOLINA Ot F31.9 BIPOLAR DISORDER, UNSPECIFIED 08/17/2017 MARYLOU MOLINA Ot F41.9 ANXIETY DISORDER, UNSPECIFIED 08/17/2017 MARYLOU MOLINA Ot F90.9 ATTENTION-DEFICIT HYPERACTIVITY DISORDER 08/17/2017 MARYLOU MOLINA Ot G43.909 MIGRAINE, UNSP, NOT INTRACTABLE, WITHOUT 08/17/2017 MARYLOU MOLINA Ot J45.909 UNSPECIFIED ASTHMA, UNCOMPLICATED 08/17/2017 MARYLOU MOLINA Ot 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, UNSPEC 08/17/2017 MARYLOU MOLINA Ot R07.89 OTHER CHEST PAIN 08/17/2017 MARYLOU MOLINA Ot Z82.49 FAMILY HX OF ISCHEM HEART DIS AND OTH DI 08/17/2017 MARYLOU MOLINA Ot Z86.718 PERSONAL HISTORY OF OTHER VENOUS THROMBO 08/17/2017 MARYLOU MOLINA Ot Z86.73 PRSNL HX OF TIA (TIA), AND CEREB INFRC W 08/17/2017 MARYLOU MOLINA Ot Z87.19 PERSONAL HISTORY OF OTHER DISEASES OF 08/17/2017 MARYLOU MOLINA Ot Z87.442 PERSONAL HISTORY OF URINARY CALCULI 08/17/2017 MARYLOU MOLINA Ot Z88.0 ALLERGY STATUS TO PENICILLIN 08/17/2017 MARYLOU MOLINA Ot Z88.2 ALLERGY STATUS TO SULFONAMIDES STATUS 08/17/2017 MARYLOU MOLINA Ot Z91.040 LATEX ALLERGY STATUS 08/17/2017 MARYLOU MOLINA Ot Z98.51 TUBAL LIGATION STATUS 08/19/2017 MARYLOU MOLINA Ot E11.40 TYPE 2 DIABETES MELLITUS WITH DIABETIC N 08/19/2017 MARYLOU MOLINA Ot F17.210 NICOTINE DEPENDENCE, CIGARETTES, UNCOMPL 08/19/2017 MARYLOU MOLINA Ot F31.9 BIPOLAR DISORDER, UNSPECIFIED 08/19/2017 MARYLOU MOLINA Ot F41.9 ANXIETY DISORDER, UNSPECIFIED 08/19/2017 MARYLOU MOLINA Ot F90.9 ATTENTION-DEFICIT HYPERACTIVITY DISORDER 08/19/2017 MARYLOU MOLINA Ot G43.909 MIGRAINE, UNSP, NOT INTRACTABLE, WITHOUT 08/19/2017 MARYLOU MOLINA Ot J45.909 UNSPECIFIED ASTHMA, UNCOMPLICATED 08/19/2017 MARYLOU MOLINA Ot 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, UNSPEC 08/19/2017 MARYLOU MOLINA Ot R07.89 OTHER CHEST PAIN 08/19/2017 MARYLOU MOLINA Ot Z82.49 FAMILY HX OF ISCHEM HEART DIS AND OTH DI 08/19/2017 MARYLOU MOLINA Ot Z86.718 PERSONAL HISTORY OF OTHER VENOUS THROMBO 08/19/2017 MARYLOU MOLINA Ot Z86.73 PRSNL HX OF TIA (TIA), AND CEREB INFRC W 08/19/2017 MARYLOU MOLINA Ot Z87.19 PERSONAL HISTORY OF OTHER DISEASES OF TH 08/19/2017 MARYLOU MOLINA Ot Z87.442 PERSONAL HISTORY OF URINARY CALCULI 08/19/2017 MARYLOU MOLINA Ot Z88.0 ALLERGY STATUS TO PENICILLIN 08/19/2017 MARYLOU MOLINA Ot Z88.2 ALLERGY STATUS TO SULFONAMIDES STATUS 08/19/2017 MARYLOU MOLINA Ot Z91.040 LATEX ALLERGY STATUS 08/19/2017 MARYLOU MOLINA Ot Z98.51 TUBAL LIGATION STATUS 08/19/2017 NWAGWU, ISIDORE O BOILER INSPECTOR Ot 745.5 08/19/2017 NWAGWU, ISIDORE O BOILER INSPECTOR Ot 780.4 08/19/2017 NWAGWU, ISIDORE O BOILER INSPECTOR Ot 780.79 08/19/2017 NWAGWU, ISIDORE O BOILER INSPECTOR Ot 785.1 08/19/2017 NWAGWU, ISIDORE O BOILER INSPECTOR Ot 786.50 08/19/2017 NWAGWU, ISIDORE O BOILER INSPECTOR Ot V12.54 08/19/2017 KADIE NEVAREZ MD Ot R40.4 TRANSIENT ALTERATION OF AWARENESS 08/19/2017 KENYATTA COLEMAN MD Ot D64.9 ANEMIA, UNSPECIFIED 08/19/2017 KENYATTA COLEMAN MD Ot E11.9 TYPE 2 DIABETES MELLITUS WITHOUT COMPLIC 08/19/2017 KENYATTA COLEMAN MD Ot E66.9 OBESITY, UNSPECIFIED 08/19/2017 KENYATTA COLEMAN MD Ot F17.210 NICOTINE DEPENDENCE, CIGARETTES, UNCOMPL 08/19/2017 KENYATTA COLEMAN MD Ot I51.9 HEART DISEASE, UNSPECIFIED 08/19/2017 KENYATTA COLEMAN MD Ot M54.5 LOW BACK PAIN 08/19/2017 KENYATTA COLEMAN MD Ot Z79.899 OTHER CARE HOME (CURRENT) DRUG THERAPY 08/19/2017 KENYATTA COLEMAN MD Ot Z86.73 PRSNL HX OF TIA (TIA), AND CEREB INFRC W 08/19/2017 GERI FISCHER, KADIE Richardson Ot R16.1 SPLENOMEGALY, NOT ELSEWHERE CLASSIFIED 08/22/2017 NWAGWU, ISIDORE O BOILER INSPECTOR Ot 745.5 08/22/2017 NWAGWU, ISIDORE O BOILER INSPECTOR Ot 780.4 08/22/2017 NWAGWU, ISIDORE O BOILER INSPECTOR Ot 780.79 08/22/2017 NWAGWU, ISIDORE O BOILER INSPECTOR Ot 785.1 08/22/2017 NWAGWU, ISIDORE O BOILER INSPECTOR Ot 786.50 08/22/2017 NWAGWU, ISIDORE O BOILER INSPECTOR Ot V12.54 08/22/2017 KADIE NEVAREZ MD Ot R40.4 TRANSIENT ALTERATION OF AWARENESS 08/22/2017 KENYATTA COLEMAN MD Ot D64.9 ANEMIA, UNSPECIFIED 08/22/2017 KENYATTA COLEMAN MD Ot E11.9 TYPE 2 DIABETES MELLITUS WITHOUT COMPLIC 08/22/2017 KENYATTA COLEMAN MD Ot E66.9 OBESITY, UNSPECIFIED 08/22/2017 KENYATTA COLEMAN MD Ot F17.210 NICOTINE DEPENDENCE, CIGARETTES, UNCOMPL 08/22/2017 KENYATTA COLEMAN MD Ot I51.9 HEART DISEASE, UNSPECIFIED 08/22/2017 KENYATTA COLEMAN MD Ot M54.5 LOW BACK PAIN 08/22/2017 KENYATTA COLEMAN MD Ot Z79.899 OTHER CARE HOME (CURRENT) DRUG THERAPY 08/22/2017 KENYATTA COLEMAN MD, Ot Z86.73 PRSNL HX OF TIA (TIA), AND CEREB INFRC W 08/22/2017 GERI FISCHER, KADIE Richardson Ot R16.1 SPLENOMEGALY, NOT ELSEWHERE CLASSIFIED 08/22/2017 NWAGWU, ISIDORE O BOILER INSPECTOR Ot 745.5 08/22/2017 NWAGWU, ISIDORE O BOILER INSPECTOR Ot 780.4 08/22/2017 NWAGWU, ISIDORE O BOILER INSPECTOR Ot 780.79 08/22/2017 NWAGWU, ISIDORE O BOILER INSPECTOR Ot 785.1 08/22/2017 NWAGWU, ISIDORE O BOILER INSPECTOR Ot 786.50 08/22/2017 NWAGWU, ISIDORE O BOILER INSPECTOR Ot V12.54 08/22/2017 KADIE NEVAREZ MD Ot R40.4 TRANSIENT ALTERATION OF AWARENESS 08/22/2017 KENYATTA COLEMAN MD Ot D64.9 ANEMIA, UNSPECIFIED 08/22/2017 KENYATTA COLEMAN MD Ot E11.9 TYPE 2 DIABETES MELLITUS WITHOUT COMPLIC 08/22/2017 KENYATTA COLEMAN MD Ot E66.9 OBESITY, UNSPECIFIED 08/22/2017 KENYATTA COLEMAN MD Ot F17.210 NICOTINE DEPENDENCE, CIGARETTES, UNCOMPL 08/22/2017 KENYATTA COLEMAN MD Ot I51.9 HEART DISEASE, UNSPECIFIED 08/22/2017 KENYATTA COLEMAN MD Ot M54.5 LOW BACK PAIN 08/22/2017 KENYATTA COLEMAN MD Ot Z79.899 OTHER CARE HOME (CURRENT) DRUG THERAPY 08/22/2017 KENYATTA COLEMAN MD Ot Z86.73 PRSNL HX OF TIA (TIA), AND CEREB INFRC W 08/22/2017 GERI FISCHER, KADIE Richardson Ot R16.1 SPLENOMEGALY, NOT ELSEWHERE CLASSIFIED 08/24/2017 NWAGWU, ISIDORE O BOILER INSPECTOR Ot 745.5 08/24/2017 NWAGWU, ISIDORE O BOILER INSPECTOR Ot 780.4 08/24/2017 NWAGWU, ISIDORE O BOILER INSPECTOR Ot 780.79 08/24/2017 NWAGWU, ISIDORE O BOILER INSPECTOR Ot 785.1 08/24/2017 NWAGWU, ISIDORE O BOILER INSPECTOR Ot 786.50 08/24/2017 NWAGWU, ISIDORE O BOILER INSPECTOR Ot V12.54 08/24/2017 JARED FISCHER, KENYATTA Andrews Ot D64.9 ANEMIA, UNSPECIFIED 08/24/2017 JARED FISCHER, KENYATTA Andrews Ot E11.9 TYPE 2 DIABETES MELLITUS WITHOUT COMPLIC 08/24/2017 KENYATTA COLEMAN MD Ot E66.9 OBESITY, UNSPECIFIED 08/24/2017 JARED FISCHER, KENYATTA Andrews Ot F17.210 NICOTINE DEPENDENCE, CIGARETTES, UNCOMPL 08/24/2017 JARED FISCHER, KENYATTA Andrews Ot I51.9 HEART DISEASE, UNSPECIFIED 08/24/2017 JARED FISCHER, KENYATTA Andrews Ot M54.5 LOW BACK PAIN 08/24/2017 JARED FISCHER, KENYATTA Andrews Ot Z79.899 OTHER PROVISIONING ANALYST (CURRENT) DRUG THERAPY 08/24/2017 JARED FISCHER, KENYATTA Andrews Ot Z86.73 PRSNL HX OF TIA (TIA), AND CEREB INFRC W 08/25/2017 SHRAVAN WALSH DO Ot K92.1 MELENA 08/25/2017 SHRAVAN WALSH DO Ot Z01.818 ENCOUNTER FOR OTHER PREPROCEDURAL EXAMIN 08/25/2017 SHRAVAN WALSH DO Ot K92.1 MELENA 08/25/2017 SHRAVAN WALSH DO Ot Z01.818 ENCOUNTER FOR OTHER PREPROCEDURAL EXAMIN 08/25/2017 RIDGE MICHAEL LAND DEGRADATION ANALYST Ot 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 08/25/2017 RIDGE MICHAEL LAND DEGRADATION ANALYST Ot Q21.1 ATRIAL SEPTAL DEFECT 08/25/2017 RIDGE MICHAEL LAND DEGRADATION ANALYST Ot R00.2 PALPITATIONS 08/25/2017 RIDGE MICHAEL LAND DEGRADATION ANALYST Ot R06.02 SHORTNESS OF BREATH Procedures Code Description Performed By Performed On [id number] INSERTION OF INFUSION DEV INTO SUP VENA CAVA, Sonya Nava MD 03/29/2015 [id number] INSERTION OF INTRALUM DEV INTO INF VENA CAVA, Brittani Kaur MD [id number] EXCISION OF RIGHT UPPER LEG SKIN, EXTERNAL APPROAC Miles Ortiz MD 03/29/2015 [id number] REPLACE R LOW LEG SKIN W AUTOL SUB, PART THICK, EX Miles Ortiz MD 03/29/2015 [id number] DIVISION OF R LOW LEG SUBCU/FASCIA, OPEN APPROACH Sonya Lopes MD 03/29/2015 [id number] REPAIR R LOW LEG SUBCU/ FASCIA, OPEN APPROACH Miles Ortiz MD [id number] REPAIR R LOW LEG SUBCU/ FASCIA, PERC APPROACH Sonya Lopes MD [id number] EXCISION OF RIGHT LOWER LEG MUSCLE, OPEN APPROACH Miles Ortiz MD 03/29/2015 [id number] REMOVAL OF EXT FIX FROM R TIBIA, RIB PULLER APPROACH Sonya Lopes MD 03/29/2015 [id number] REPOSITION RIGHT TIBIA WITH INT FIX, OPEN APPROACH Sonya Lopes MD 03/29/2015 [id number] REPOSITION RIGHT TIBIA WITH EXT FIX, PERC APPROACH Sonya Lopes MD 03/29/2015 [id number] IRRIGATION OF SKIN AND MUCOUS MEMBRANES USING IRRI Sonya Lopes MD 03/29/2015 [id number] MEASURE CARDIAC ELECTR ACTIVITY, GUIDANCE, RIB PULLER Sonya Lopes MD 03/29/2015 [id number] FLUOROSCOPY OF INF VENA CAVA USING L OSM CONTRAST, Brittani Ambriz MD 03/29/2015 <section xmlns="urn:hl7-org:v3" xmlns:xsi= "http://www.w3.org/2001/XMLSchema-instance"> <templateId root= "[email or web address]" /> <templateId root= "[id number]" /> <code codeSystemName="ADRIANNA" codeSystem= "[id number]" code="15660-0" displayName="Results" /> <title>Results< /title> <text> <table> <thead> [...] PHOSPHATASE TOTAL</td> <td>49 IU/L</td> <td>45-117</td> </tr> <tr> < colspan="10">GLUCOSE ( POC) - 03/30/15 06:02</th> </tr> <tr> <td>GLUCOSE (POC)</ td> <td>105 mg/dL</td> <td>70-99</td> </tr> <tr > < colspan="10">GLUCOSE (POC) - 03/30/15 08:44</th> </tr> <tr> <td>GLUCOSE (POC)</td> <td>106 mg/dL</td> < td>70-99</td> </tr> <tr> < colspan="10">CBC - 03/30/15 09:52</th> </tr> <tr> <td>MEAN [...] TOTAL</td> <td>49 IU/L</td> <td>45-117</ td> </tr> <tr> < colspan="10">MAGNESIUM - 03/30/15 09: 52</th> </tr> <tr> [...] (POC)</td> <td>110 mg/dL</td> <td>70-99</td> </ tr> <tr> < colspan="10">GLUCOSE (POC) - 03/30/15 14:39</th> </tr> <tr> [...] <td>23-39</td> </tr> <tr> < th colspan="10">[facility]31[facility] 01:29</th> </tr> <tr> <td>POTASSIUM</td> <td>4.0 [...] PHOSPHATASE TOTAL</td> <td>48 IU/L</td> <td>45-117</td> </tr> <tr> <th colspan="10">CBC - 03/31 04:22</th> </tr> <tr> <td>MEAN [...] TIME</td> <td>95 sec</td> <td> 23-39</td> </tr> <tr> < colspan="10">GLUCOSE (POC) - 05:42</th> </tr> <tr> <td>GLUCOSE (POC)</td> <td>97 mg/dL</td> <td>70-99</td> </tr> <tr> < colspan="10">GLUCOSE (POC) - 04/03/15 08:43</th> </tr> <tr> <td>GLUCOSE (POC)</td> <td>79 mg/dL</td> <td>70-99</ td> </tr> <tr> <th colspan="10">GLUCOSE (POC) - 04/03/15 11:31</th> </tr> <tr> <td>GLUCOSE (POC)</td> <td >79 mg/dL</td> <td>70-99</td> </tr> <tr> < colspan="10">GLUCOSE (POC) - 04/03/15 16:40</th> </tr> <tr> <td>GLUCOSE (POC)</td> <td>111 mg/dL</td> <td>70-99</td> </tr> <tr> < colspan="10">GLUCOSE (POC) - 04/03/15 21: 22</th> </tr> [...] VANCOMYCIN TROUGH</td> <td>9.3 mcg/mL</td> <td>5.0-20.0</td> </tr> <tr> <th colspan="10">GLUCOSE (POC) - 04/04/15 17: 31</th> </tr> <tr> <td>GLUCOSE (POC)</td> <td> 93 mg/dL</td> <td>70-99</td> </tr> <tr> <th colspan="10">GLUCOSE (POC) - 04/04/15 20:41</th> </tr> <tr> [...] DIOXIDE</td> <td>25 mmol/L</td> <td>21-32</td> < /tr> <tr> <th colspan="10">CBC - 04/09/15 05:30</th> </tr > <tr> <td>COMMENT</td> <td>REVIEWED </td> < [...] <td>24 mmol/L</td> <td>21-32</td> </tr> <tr > < colspan="">CBC - 04/14/15 05:39</th> </tr> <tr> <td>MEAN CELL [...] DIOXIDE</td> <td>23 mmol/L</td> <td>21-32</td> </tr> <tr> < colspan="">CBC - 04/16/15 09:29</th> </tr> <tr> <td >COMMENT</td> [...] <td>CARBON DIOXIDE</td> <td>25 mmol/L</td> <td>21-32</td> </tr> <tr> < colspan="10">CBC - 11/24 04:35</th> </tr> <tr> <td>MEAN [...] COUNT</td> <td>349 k/cumm< /td> <td>150-400</td> </tr> <tr> < colspan="10 ">GLUCOSE (POC) - 04/18/15 06:25</th> </tr> [...] 0.0 10*3/uL</td> <td>0.0-0.1</td> </tr> <tr> < th colspan="10">Comprehensive metabolic panel - 08/23/16 14:55</th> </tr [...] identification in genital specimen by aerobe culture</td> <td>[id number] </td> <td>NRG</td> </tr> <tr> <th colspan="10"> Microscopic examination by OLGA preparation - 03/24/17 01:30</th> </tr> <tr> <td>Microscopic examination by OLGA preparation</td> <td>TNP </td> <td>NRG</td> </tr> <tr> <th colspan="10">Microscopic examination by wet preparation - 03/24/17 01:30</th> </tr> <tr> <td>WET PREP RESULTS</td> <td>03-15-17/ KD </td> <td>NRG</td> </tr> <tr> <th colspan="10 ">Complete urinalysis with reflex to culture - 06/14/17 00:25</th> </tr> <tr> <td>Urine color determination</td> <td>STRAW </td > <td>NRG</td> </tr> <tr> <td>Urine clarity determination</td> <td>CLEAR </td> <td>NRG</td> </tr> <tr> <td>Urine pH measurement by test strip</td> <td>6 </td> <td>5-9</td> </tr> <tr> <td>Specific gravity of urine by test strip</td> <td>1.005 </td> <td>1.016- 1.022</td> </tr> <tr> <td>Urine protein assay by test strip, semi-quantitative</td> <td>NEGATIVE </td> <td>NEGATIVE< /td> </tr> <tr> <td>Urine glucose detection by automated test strip</td> <td>NEGATIVE </td> <td>NEGATIVE</td> </ tr> <tr> <td>Erythrocytes detection in urine sediment by light microscopy</td> <td>NEGATIVE </td> <td>NEGATIVE</td> </ tr> <tr> <td>Urine ketones detection by automated test strip</td > <td>NEGATIVE </td> <td>NEGATIVE</td> </tr> <tr > <td>Urine nitrite detection by test strip</td> <td>NEGATIVE </td> <td>NEGATIVE</td> </tr> <tr> <td>Urine total bilirubin detection by test strip</td> <td>NEGATIVE </td> <td>NEGATIVE</td> </tr> <tr> <td>Urine urobilinogen measurement by automated test strip (mass/volume)</td> <td>NORMAL </td > <td>NORMAL</td> </tr> <tr> <td>Urine leukocyte esterase detection by dipstick</td> <td>NEGATIVE </td> <td>NEGATIVE</td> </tr> <tr> <td>Automated urine sediment erythrocyte count by microscopy (number/high power field)</td> <td>NONE </td> <td>NRG</td> </tr> <tr> <td> Automated urine sediment leukocyte count by microscopy (number/high power field) </td> <td>NONE </td> <td>NRG</td> </tr> <tr> <td>Bacteria detection in urine sediment by light microscopy</td> <td>TRACE </td> <td>NRG</td> </tr> <tr> <td> Squamous epithelial cells detection in urine sediment by light microscopy</td> <td>2-5 </td> <td>NRG</td> </tr> <tr> < td>Crystals detection in urine sediment by light microscopy</td> <td> NONE </td> <td>NRG</td> </tr> <tr> <td>Casts detection in urine sediment by light microscopy</td> <td>NONE </td> <td>NRG</td> </tr> <tr> <td>Mucus detection in urine sediment by light microscopy</td> <td>NEGATIVE </td> <td >NRG</td> </tr> <tr> <td>Complete urinalysis with reflex to culture</td> <td>NO </td> <td>NRG</td> </tr> <tr> <th colspan="10">Complete blood count (CBC) with automated white blood cell (WBC) differential - 07/31/17 20:25</th> </tr> <tr> <td>Blood leukocytes automated count (number/volume)</td> <td> 9.0 10*3/uL</td> <td>4.3-11.0</td> </tr> <tr> < td>Blood erythrocytes automated count (number/volume)</td> <td>4.38 10* 6/uL</td> <td>4.35-5.85</td> </tr> <tr> <td> Venous blood hemoglobin measurement (mass/volume)</td> <td>11.8 g/dL</ td> <td>11.5-16.0</td> </tr> <tr> <td>Blood hematocrit (volume fraction)</td> <td>37 %</td> <td>35-52< /td> </tr> <tr> <td>Automated erythrocyte mean corpuscular volume</td> <td>84 [foz_us]</td> <td>80-99</td> </tr> <tr> <td>Automated erythrocyte mean corpuscular hemoglobin (mass per erythrocyte)</td> <td>27 pg</td> <td>25- 34</td> </tr> <tr> <td>Automated erythrocyte mean corpuscular hemoglobin concentration measurement (mass/volume)</td> <td >32 g/dL</td> <td>32-36</td> </tr> <tr> <td> Automated erythrocyte distribution width ratio</td> <td>17.6 %</td > <td>10.0-14.5</td> </tr> <tr> <td>Automated blood platelet count (count/volume)</td> <td>426 10*3/uL</td> <td>130-400</td> </tr> <tr> <td>Automated blood platelet mean volume measurement</td> <td>9.9 [foz_us]</td> <td>7.4- 10.4</td> </tr> <tr> <td>Automated blood neutrophils/100 leukocytes</td> <td>48 %</td> <td>42-75</td> </tr> <tr> <td>Automated blood lymphocytes/100 leukocytes</td> <td>44 %</td> <td>12-44</td> </tr> <tr> <td>Blood monocytes/100 leukocytes</td> <td>5 %</td> <td>0 -12</td> </tr> <tr> <td>Automated blood eosinophils/100 leukocytes</td> <td>2 %</td> <td>0-10</td> </tr> <tr> <td>Automated blood basophils/100 leukocytes</td> < td>0 %</td> <td>0-10</td> </tr> <tr> <td> Blood neutrophils automated count (number/volume)</td> <td>4.3 10*3</td > <td>1.8-7.8</td> </tr> <tr> <td>Blood lymphocytes automated count (number/volume)</td> <td>4.0 10*3</td> <td>1.0-4.0</td> </tr> <tr> <td>Blood monocytes automated count (number/volume)</td> <td>0.5 10*3</td> <td>0.0 -1.0</td> </tr> <tr> <td>Automated eosinophil count</td> <td>0.2 10*3/uL</td> <td>0.0-0.3</td> </tr> <tr > <td>Automated blood basophil count (count/volume)</td> <td> 0.0 10*3/uL</td> <td>0.0-0.1</td> </tr> <tr> < th colspan="10">Complete urinalysis with reflex to culture - 07/31/17 20:25</th > </tr> <tr> <td>Urine color determination</td> <td>YELLOW </td> <td>NRG</td> </tr> <tr> <td> Urine clarity determination</td> <td>CLEAR </td> <td>NRG</td> </tr> <tr> <td>Urine pH measurement by test strip</td> <td>7 </td> <td>5-9</td> </tr> <tr> <td >Specific gravity of urine by test strip</td> <td>1.010 </td> <td>1.016-1.022</td> </tr> <tr> <td>Urine protein assay by test strip, semi-quantitative</td> <td>1+ </td> <td> NEGATIVE</td> </tr> <tr> <td>Urine glucose detection by automated test strip</td> <td>NEGATIVE </td> <td>NEGATIVE</td > </tr> <tr> <td>Erythrocytes detection in urine sediment by light microscopy</td> <td>NEGATIVE </td> <td> NEGATIVE</td> </tr> <tr> <td>Urine ketones detection by automated test strip</td> <td>1+ </td> <td>NEGATIVE</td> </tr> <tr> <td>Urine nitrite detection by test strip</td> <td>NEGATIVE </td> <td>NEGATIVE</td> </tr> <tr> <td>Urine total bilirubin detection by test strip</td> <td> NEGATIVE </td> <td>NEGATIVE</td> </tr> <tr> <td> Urine urobilinogen measurement by automated test strip (mass/volume)</td> <td>1 mg/dL</td> <td>NORMAL</td> </tr> <tr> <td>Urine leukocyte esterase detection by dipstick</td> <td>1+ </td> <td>NEGATIVE</td> </tr> <tr> <td>Automated urine sediment erythrocyte count by microscopy (number/high power field)</td> <td>NONE </td> <td>NRG</td> </tr> <tr> <td> Automated urine sediment leukocyte count by microscopy (number/high power field) </td> <td> [HPF]</td> <td>NRG</td> </tr> <tr> <td>Bacteria detection in urine sediment by light microscopy</td> <td>NONE </td> <td>NRG</td> </tr> <tr> <td> Squamous epithelial cells detection in urine sediment by light microscopy</td> <td>0-2 </td> <td>NRG</td> </tr> <tr> < td>Crystals detection in urine sediment by light microscopy</td> <td> NONE </td> <td>NRG</td> </tr> <tr> <td>Casts detection in urine sediment by light microscopy</td> <td>NONE </td> <td>NRG</td> </tr> <tr> <td>Mucus detection in urine sediment by light microscopy</td> <td>NEGATIVE </td> <td >NRG</td> </tr> <tr> <td>Complete urinalysis with reflex to culture</td> <td>NO </td> <td>NRG</td> </tr> <tr> < colspan="10">Comprehensive metabolic panel - 07/31/17 20:25</ th> </tr> <tr> <td>Serum or plasma sodium measurement ( moles/volume)</td> <td>137 mmol/L</td> <td>135-145</td> </tr> <tr> <td>Serum or plasma potassium measurement (moles/ volume)</td> <td>3.9 mmol/L</td> <td>3.6-5.0</td> </tr > <tr> <td>Serum or plasma chloride measurement (moles/volume)</ td> <td>105 mmol/L</td> <td>98-107</td> </tr> < tr> <td>Carbon dioxide</td> <td>22 mmol/L</td> <td>21 -32</td> </tr> <tr> <td>Serum or plasma anion gap determination (moles/volume)</td> <td>10 mmol/L</td> <td>5-14< /td> </tr> <tr> <td>Serum or plasma urea nitrogen measurement (mass/volume)</td> <td>9 mg/dL</td> <td>7-18</td> </tr> <tr> <td>Serum or plasma creatinine measurement ( mass/volume)</td> <td>0.82 mg/dL</td> <td>0.60-1.30</td> </tr> <tr> <td>Serum or plasma urea nitrogen/creatinine mass ratio</td> <td>11 </td> <td>NRG</td> </tr> <tr> <td>Serum or plasma creatinine measurement with calculation of estimated glomerular filtration rate</td> <td>> </td> <td> NRG</td> </tr> <tr> <td>Serum or plasma glucose measurement (mass/volume)</td> <td>90 mg/dL</td> <td>70-105</ td> </tr> <tr> <td>Serum or plasma calcium measurement ( mass/volume)</td> <td>9.7 mg/dL</td> <td>8.5-10.1</td> </tr> <tr> <td>Serum or plasma total bilirubin measurement (mass /volume)</td> <td>0.3 mg/dL</td> <td>0.1-1.0</td> </tr > <tr> <td>Serum or plasma alkaline phosphatase measurement ( enzymatic activity/volume)</td> <td>47 U/L</td> <td>40-136</td > </tr> <tr> <td>Serum or plasma aspartate aminotransferase measurement (enzymatic activity/volume)</td> <td>13 U/ L</td> <td>5-34</td> </tr> <tr> <td>Serum or plasma alanine aminotransferase measurement (enzymatic activity/volume)</td> <td>12 U/L</td> <td>0-55</td> </tr> <tr> <td>Serum or plasma protein measurement (mass/volume)</td> <td>7.6 g/dL </td> <td>6.4-8.2</td> </tr> <tr> <td>Serum or plasma albumin measurement (mass/volume)</td> <td>4.3 g/dL</td> <td>3.2-4.5</td> </tr> <tr> <th colspan="10">Serum or plasma C reactive protein measurement (mass/volume) - 07/31/17 20:25</th> </tr> <tr> <td>Serum or plasma C reactive protein measurement (mass/volume)</td> <td>1.43 mg/dL</td> <td>0.00-0.50</td> </tr> <tr> <th colspan="10">Complete blood count (CBC) with automated white blood cell (WBC) differential - 08/17/17 17:59</th> </tr > <tr> <td>Blood leukocytes automated count (number/volume)</td > <td>9.9 10*3/uL</td> <td>4.3-11.0</td> </tr> < tr> <td>Blood erythrocytes automated count (number/volume)</td> <td>4.45 10*6/uL</td> <td>4.35-5.85</td> </tr> <tr> <td>Venous blood hemoglobin measurement (mass/volume)</td> <td> 12.0 g/dL</td> <td>11.5-16.0</td> </tr> <tr> <td >Blood hematocrit (volume fraction)</td> <td>37 %</td> <td >35-52</td> </tr> <tr> <td>Automated erythrocyte mean corpuscular volume</td> <td>84 [foz_us]</td> <td>80-99</td> </tr> <tr> <td>Automated erythrocyte mean corpuscular hemoglobin (mass per erythrocyte)</td> <td>27 pg</td> <td>25- 34</td> </tr> <tr> <td>Automated erythrocyte mean corpuscular hemoglobin concentration measurement (mass/volume)</td> <td >32 g/dL</td> <td>32-36</td> </tr> <tr> <td> Automated erythrocyte distribution width ratio</td> <td>16.7 %</td > <td>10.0-14.5</td> </tr> <tr> <td>Automated blood platelet count (count/volume)</td> <td>458 10*3/uL</td> <td>130-400</td> </tr> <tr> <td>Automated blood platelet mean volume measurement</td> <td>9.6 [foz_us]</td> <td>7.4- 10.4</td> </tr> <tr> <td>Automated blood neutrophils/100 leukocytes</td> <td>54 %</td> <td>42-75</td> </tr> <tr> <td>Automated blood lymphocytes/100 leukocytes</td> <td>38 %</td> <td>12-44</td> </tr> <tr> <td>Blood monocytes/100 leukocytes</td> <td>5 %</td> <td>0 -12</td> </tr> <tr> <td>Automated blood eosinophils/100 leukocytes</td> <td>2 %</td> <td>0-10</td> </tr> <tr> <td>Automated blood basophils/100 leukocytes</td> < td>0 %</td> <td>0-10</td> </tr> <tr> <td> Blood neutrophils automated count (number/volume)</td> <td>5.3 10*3</td > <td>1.8-7.8</td> </tr> <tr> <td>Blood lymphocytes automated count (number/volume)</td> <td>3.8 10*3</td> <td>1.0-4.0</td> </tr> <tr> <td>Blood monocytes automated count (number/volume)</td> <td>0.5 10*3</td> <td>0.0 -1.0</td> </tr> <tr> <td>Automated eosinophil count</td> <td>0.2 10*3/uL</td> <td>0.0-0.3</td> </tr> <tr > <td>Automated blood basophil count (count/volume)</td> <td> 0.0 10*3/uL</td> <td>0.0-0.1</td> </tr> <tr> < th colspan="10">PT panel in platelet poor plasma by coagulation assay - 17:59</th> </tr> <tr> <td>Prothrombin time (PT) in platelet poor plasma by coagulation assay</td> <td>13.8 s</td> <td>12.2-14.7</td> </tr> <tr> <td>INR in platelet poor plasma or blood by coagulation assay</td> <td>1.1 </td> <td> 0.8-1.4</td> </tr> <tr> <th colspan="10">Activated partial thromboplastin time (aPTT) in platelet poor plasma bycoagulation assay - 08/17/17 17:59</th> </tr> <tr> <td>Activated partial thromboplastin time (aPTT) in platelet poor plasma bycoagulation assay</td> <td>36 s</td> <td>24-35</td> </tr> <tr> < th colspan="10">Fibrin D-dimer FEU measurement in platelet poor plasma (mass/ volume) - 08/17/17 17:59</th> </tr> <tr> <td>Fibrin D- dimer FEU measurement in platelet poor plasma (mass/volume)</td> <td> 0.33 ug/mL</td> <td>0.00-0.49</td> </tr> <tr> < th colspan="10">Comprehensive metabolic panel - 08/17/17 17:59</th> </tr > <tr> <td>Serum or plasma sodium measurement (moles/volume)</td > <td>139 mmol/L</td> <td>135-145</td> </tr> <tr > <td>Serum or plasma potassium measurement (moles/volume)</td> <td>3.9 mmol/L</td> <td>3.6-5.0</td> </tr> <tr> <td>Serum or plasma chloride measurement (moles/volume)</td> <td> 107 mmol/L</td> <td>98-107</td> </tr> <tr> <td> Carbon dioxide</td> <td>24 mmol/L</td> <td>21-32</td> < /tr> <tr> <td>Serum or plasma anion gap determination (moles/ volume)</td> <td>8 mmol/L</td> <td>5-14</td> </tr> <tr> <td>Serum or plasma urea nitrogen measurement (mass/volume)</ td> <td>7 mg/dL</td> <td>7-18</td> </tr> <tr> <td>Serum or plasma creatinine measurement (mass/volume)</td> < td>0.76 mg/dL</td> <td>0.60-1.30</td> </tr> <tr> <td>Serum or plasma urea nitrogen/creatinine mass ratio</td> <td>9 </ td> <td>NRG</td> </tr> <tr> <td>Serum or plasma creatinine measurement with calculation of estimated glomerular filtration rate< /td> <td>> </td> <td>NRG</td> </tr> <tr> <td>Serum or plasma glucose measurement (mass/volume)</td> <td> 91 mg/dL</td> <td>70-105</td> </tr> <tr> <td> Serum or plasma calcium measurement (mass/volume)</td> <td>9.8 mg/dL</ td> <td>8.5-10.1</td> </tr> <tr> <td>Serum or plasma total bilirubin measurement (mass/volume)</td> <td>0.3 mg/dL</td > <td>0.1-1.0</td> </tr> <tr> <td>Serum or plasma alkaline phosphatase measurement (enzymatic activity/volume)</td> <td>39 U/L</td> <td>40-136</td> </tr> <tr> < td>Serum or plasma aspartate aminotransferase measurement (enzymatic activity/ volume)</td> <td>11 U/L</td> <td>5-34</td> </tr> <tr> <td>Serum or plasma alanine aminotransferase measurement ( enzymatic activity/volume)</td> <td>8 U/L</td> <td>0-55</td> </tr> <tr> <td>Serum or plasma protein measurement (mass/ volume)</td> <td>7.6 g/dL</td> <td>6.4-8.2</td> </tr> <tr> <td>Serum or plasma albumin measurement (mass/volume)</td> <td>4.5 g/dL</td> <td>3.2-4.5</td> </tr> <tr> <th colspan="10">Magnesium - 08/17/17 17:59</th> </tr> < tr> <td>Magnesium</td> <td>1.9 mg/dL</td> <td>1.8-2.4 </td> </tr> <tr> <th colspan="10">Serum or plasma creatine kinase measurement (enzymatic activity/volume) - 08/17/17 17:59</th> </tr> <tr> <td>Serum or plasma creatine kinase measurement (enzymatic activity/volume)</td> <td>154 U/L</td> <td>29-168</td> </tr> <tr> <th colspan="10">Serum or plasma creatine kinase MB measurement (enzymatic activity/volume) - 08/17/17 17: 59</th> </tr> <tr> <td>Serum or plasma creatine kinase MB measurement (enzymatic activity/volume)</td> <td>0.6 ng/mL</td> <td><6.6</td> </tr> <tr> <th colspan="10">Serum or plasma troponin i.cardiac measurement (mass/volume) - 08/17/17 17:59</th> </tr> <tr> <td>Serum or plasma troponin i.cardiac measurement (mass/volume)</td> <td>< ng/mL</td> <td>< 0.30</td> </tr> <tr> <th colspan="10">Serum or plasma lithium measurement (moles/volume) - 08/17/17 17:59</th> </tr> <tr > <td>BNP level</td> <td>< pg/mL</td> <td>< 100.0</td> </tr> <tr> <th colspan="10">Myoglobin, serum - 08/17/17 17:59</th> </tr> <tr> <td>Myoglobin, serum</td > <td>27.8 ng/mL</td> <td>10.0-92.0</td> </tr> </ tbody> </table> </text> <entry> <organizer moodCode="EVN" classCode= "BATTERY"> <templateId root="2.16.840.1.456141.10.20.22.4.1" /> <id nullFlavor="NA" /> <code codeSystem="local" code="CBCD" displayName="CBC W/ DIFF" /> <statusCode code="completed" /> <component> < observation moodCode="EVN" classCode="OBS"> <templateId root= "05.27.840.1.770004.10..4.2" /> <id nullFlavor="NA" /> < code codeSystem="local" code="EO#" displayName="EOSINOPHIL #" /> < statusCode code="completed" /> <effectiveTime value="" /> <value unit="k/cumm" xsi:type="PQ" value="0.1" /> < referenceRange> <observationRange> <text>0.1-0.5</text> </observationRange> </referenceRange> </observation > </component> <component> <observation moodCode="EVN" classCode="OBS"> <templateId root="840.1.665887.01.28.22.4.2" /> <id nullFlavor="NA" /> <code codeSystem="local" code="EO% " displayName="EOSINOPHIL %" /> <statusCode code="completed" /> <effectiveTime value="" /> <value unit="%" xsi: type="PQ" value="1" /> <interpretationCode codeSystem="local" code="*" /> <referenceRange> <observationRange> <text>2- 4</text> </observationRange> </referenceRange> </ observation> </component> <component> <observation moodCode= "EVN" classCode="OBS"> <templateId root="05.27.840.1.584066...4.2 " /> <id nullFlavor="NA" /> <code codeSystem="local" code="GR# " displayName="GRANULOCYTE #" /> <statusCode code="completed" /> <effectiveTime value="" /> <value unit="k/cumm" xsi: type="PQ" value="9.5" /> <interpretationCode codeSystem="local" code="* " /> <referenceRange> <observationRange> <text> 2.0-9.0</text> </observationRange> </referenceRange> </observation> </component> <component> <observation moodCode= "EVN" classCode="OBS"> <templateId root="16.840.1.722345.10.20.22.4.2 " /> <id nullFlavor="NA" /> <code codeSystem="local" code="GR& #37;" displayName="GRANULOCYTE %" /> <statusCode code="completed" / > <effectiveTime value="" /> <value unit="%" xsi:type="PQ" value="73" /> <referenceRange> < observationRange> <text>50-75</text> </observationRange > </referenceRange> </observation> </component> < component> <observation moodCode="EVN" classCode="OBS"> < templateId root="16.840.1.414501.10.20.22.4.2" /> <id nullFlavor="NA " /> <code codeSystem="local" code="LY#" displayName="LYMPHOCYTE #" /> <statusCode code="completed" /> <effectiveTime value= "" /> <value unit="k/cumm" xsi:type="PQ" value="2.7" /> <referenceRange> <observationRange> <text>1.0-4.0 </text> </observationRange> </referenceRange> </ observation> </component> <component> <observation moodCode= "EVN" classCode="OBS"> <templateId root="216.840.1.038443.10.20.22.4.2 " /> <id nullFlavor="NA" /> <code codeSystem="local" code="LY& #37;" displayName="LYMPHOCYTE %" /> <statusCode code="completed" / > <effectiveTime value="" /> <value unit="%" xsi:type="PQ" value="20" /> <referenceRange> < observationRange> <text>20-30</text> </observationRange > </referenceRange> </observation> </component> < component> <observation moodCode="EVN" classCode="OBS"> < templateId root="05.27.840.1.920966.10.22.4.2" /> <id nullFlavor="NA " /> <code codeSystem="local" code="MCH" displayName="MEAN CELL HGB" / > <statusCode code="completed" /> <effectiveTime value= "" /> <value unit="pg" xsi:type="PQ" value="26.1" /> <interpretationCode codeSystem="local" code="*" /> <referenceRange > <observationRange> <text>27.0-33.0</text> < /observationRange> </referenceRange> </observation> </ component> <component> <observation moodCode="EVN" classCode="OBS"> <templateId root="05.27.840.1.712919.10.2022.4.2" /> <id nullFlavor="NA" /> <code codeSystem="local" code="MCHC" displayName= "MEAN CELL HGB CONCENTRATION" /> <statusCode code="completed" /> <effectiveTime value="" /> <value unit="g/dL" xsi:type= "PQ" value="31.4" /> <interpretationCode codeSystem="local" code="*" / > <referenceRange> <observationRange> <text> 32.0-37.0</text> </observationRange> </referenceRange> </observation> </component> <component> <observation moodCode="EVN" classCode="OBS"> <templateId root= "05.27.840.1.801364.10.20.22.4.2" /> <id nullFlavor="NA" /> < code codeSystem="local" code="MCV" displayName="MEAN CELL VOLUME" /> < statusCode code="completed" /> <effectiveTime value="" /> <value unit="fl" xsi:type="PQ" value="83.1" /> <referenceRange > <observationRange> <text>80.0-100.0</text> </observationRange> </referenceRange> </observation> </ component> <component> <observation moodCode="EVN" classCode="OBS"> <templateId root="840.1.469846.1022.4.2" /> <id nullFlavor="NA" /> <code codeSystem="local" code="MO#" displayName= "MONOCYTE #" /> <statusCode code="completed" /> < effectiveTime value="" /> <value unit="k/cumm" xsi:type="PQ " value="0.8" /> <referenceRange> <observationRange> <text>0.1-1.0</text> </observationRange> </ referenceRange> </observation> </component> <component> <observation moodCode="EVN" classCode="OBS"> <templateId root= "05.27.840.1.481706.10.20.22.4.2" /> <id nullFlavor="NA" /> < code codeSystem="local" code="MO%" displayName="MONOCYTE %" /> <statusCode code="completed" /> <effectiveTime value="" /> <value unit="%" xsi:type="PQ" value="6" /> < referenceRange> <observationRange> <text>4-6</text> </observationRange> </referenceRange> </observation> </component> <component> <observation moodCode="EVN" classCode= "OBS"> <templateId root="216.840.1.872672.10.20.22.4.2" /> < id nullFlavor="NA" /> <code codeSystem="local" code="RBC" displayName= "RED BLOOD CELL" /> <statusCode code="completed" /> < effectiveTime value="" /> <value unit="m/cumm" xsi:type="PQ " value="4.26" /> <referenceRange> <observationRange> <text>4.00-6.00</text> </observationRange> </ referenceRange> </observation> </component> <component> <observation moodCode="EVN" classCode="OBS"> <templateId root= "216.840.1.108817.10.20.22.4.2" /> <id nullFlavor="NA" /> < code codeSystem="local" code="RDW" displayName="RED CELL DISTRIBUTION WIDTH" /> <statusCode code="completed" /> <effectiveTime value= "" /> <value unit="%" xsi:type="PQ" value="15.9" /> <interpretationCode codeSystem="local" code="*" /> < referenceRange> <observationRange> <text>11.0-15.6</text > </observationRange> </referenceRange> </observation > </component> <component> <observation moodCode="EVN" classCode="OBS"> <templateId root="05.27.840.1.860775.10.20.22.4.2" /> <id nullFlavor="NA" /> <code codeSystem="local" code="WBC" displayName="WHITE BLOOD CELL" /> <statusCode code="completed" /> <effectiveTime value="" /> <value unit="k/cumm" xsi: type="PQ" value="13.1" /> <interpretationCode codeSystem="local" code= "*" /> <referenceRange> <observationRange> < text>5.0-10.0</text> </observationRange> </referenceRange> </observation> </component> <component> <observation moodCode="EVN" classCode="OBS"> <templateId root= "840.1.242676.01.28.22.4.2" /> <id nullFlavor="NA" /> < code codeSystem="local" code="HGBT" displayName="HEMOGLOBIN" /> < statusCode code="completed" /> <effectiveTime value="" /> <value unit="gm/dL" xsi:type="PQ" value="11.1" /> < interpretationCode codeSystem="local" code="*" /> <referenceRange> <observationRange> <text>12.0-16.0</text> </ observationRange> </referenceRange> </observation> </ component> <component> <observation moodCode="EVN" classCode="OBS"> <templateId root="05.27.840.1.763066.10.2022.4.2" /> <id nullFlavor="NA" /> <code codeSystem="local" code="HCTT" displayName= "HEMATOCRIT" /> <statusCode code="completed" /> < effectiveTime value="" /> <value unit="%" xsi:type="PQ " value="35.4" /> <interpretationCode codeSystem="local" code="*" /> <referenceRange> <observationRange> <text>37.0- 47.0</text> </observationRange> </referenceRange> </ observation> </component> <component> <observation moodCode= "EVN" classCode="OBS"> <templateId root="16.840.1.321287.1022.4.2 " /> <id nullFlavor="NA" /> <code codeSystem="local" code="PLT " displayName="PLATELET COUNT" /> <statusCode code="completed" /> <effectiveTime value="[id number]" /> <value unit="k/cumm" xsi: type="PQ" value="376" /> <referenceRange> <observationRange > <text>150-400</text> </observationRange> </ referenceRange> </observation> </component> </organizer> </entry > <entry> <organizer moodCode="EVN" classCode="BATTERY"> <templateId root="05.27.840.1.383708.1022.4.1" /> <id nullFlavor="NA" /> <code codeSystem="local" code="PT" displayName="PROTHROMBIN TIME WITH INR" /> < statusCode code="completed" /> <component> <observation moodCode= "EVN" classCode="OBS"> <templateId root="16.840.1.140502.102022.4.2 " /> <id nullFlavor="NA" /> <code codeSystem="local" code= "INRX" displayName="INTERNATIONAL NORMAL RATIO" /> <statusCode code= "completed" /> <effectiveTime value="[id number]" /> <value unit="" xsi:type="PQ" value="1.1" /> <referenceRange> < observationRange> <text>0.9-1.1</text> </ observationRange> </referenceRange> </observation> </ component> <component> <observation moodCode="EVN" classCode="OBS"> <templateId root="05.27.840.1.846606.10.2022.4.2" /> <id nullFlavor="NA" /> <code codeSystem="local" code="PTPAT" displayName= "PROTHROMBIN TIME" /> <statusCode code="completed" /> < effectiveTime value="" /> <value unit="sec" xsi:type="PQ" value="12.3" /> <interpretationCode codeSystem="local" code="*" /> <referenceRange> <observationRange> <text>9.3-12.2 </text> </observationRange> </referenceRange> </ observation> </component> </organizer> </entry> <entry> <organizer moodCode="EVN" classCode="BATTERY"> <templateId root= "840.1.350752..22.4.1" /> <id nullFlavor="NA" /> <code codeSystem="local" code="METABC" displayName="METABOLIC PANEL, COMPREHN" /> <statusCode code="completed" /> <component> <observation moodCode= "EVN" classCode="OBS"> <templateId root="05.27.840.1.288859.10.20.22.4.2 " /> <id nullFlavor="NA" /> <code codeSystem="local" code="K" displayName="POTASSIUM" /> <statusCode code="completed" /> < effectiveTime value="[id number]" /> <value unit="mmol/L" xsi:type="PQ " value="3.4" /> <interpretationCode codeSystem="local" code="*" /> <referenceRange> <observationRange> <text>3.5-5.3 </text> </observationRange> </referenceRange> </ observation> </component> <component> <observation moodCode= "EVN" classCode="OBS"> <templateId root="216.840.1.340416.10..22.4.2 " /> <id nullFlavor="NA" /> <code codeSystem="local" code= "eGFR" displayName="EST GFR (MDRD)" /> <statusCode code="completed" /> <effectiveTime value="" /> <value unit="mL/min" xsi:type="PQ" value="> 60" /> <referenceRange> < observationRange> <text>> 59</text> </ observationRange> </referenceRange> </observation> </ component> <component> <observation moodCode="EVN" classCode="OBS"> <templateId root="05.27.840.1.476597.10..4.2" /> <id nullFlavor="NA" /> <code codeSystem="local" code="GAP" displayName= "ANION GAP" /> <statusCode code="completed" /> <effectiveTime value="" /> <value unit="mmol/L" xsi:type="PQ" value="13" / > <referenceRange> <observationRange> <text>5- 15</text> </observationRange> </referenceRange> </ observation> </component> <component> <observation moodCode= "EVN" classCode="OBS"> <templateId root="05.27.840.1.647165.10...4.2 " /> <id nullFlavor="NA" /> <code codeSystem="local" code= "eCrCl" displayName="EST CrCl (CG)" /> <statusCode code="completed" /> <effectiveTime value="" /> <value unit="mL/min" xsi:type="PQ" value="> 60" /> <referenceRange> < observationRange> <text>> 59</text> </ observationRange> </referenceRange> </observation> </ component> <component> <observation moodCode="EVN" classCode="OBS"> <templateId root="16.840.1.926098.10.2022.4.2" /> <id nullFlavor="NA" /> <code codeSystem="local" code="GLU" displayName= "GLUCOSE" /> <statusCode code="completed" /> <effectiveTime value="" /> <value unit="mg/dL" xsi:type="PQ" value="77" / > <referenceRange> <observationRange> <text>70- 99</text> </observationRange> </referenceRange> </ observation> </component> <component> <observation moodCode= "EVN" classCode="OBS"> <templateId root="05.27.840.1.313528.1022.4.2 " /> <id nullFlavor="NA" /> <code codeSystem="local" code="CA " displayName="CALCIUM" /> <statusCode code="completed" /> < effectiveTime value="" /> <value unit="mg/dL" xsi:type="PQ " value="8.8" /> <referenceRange> <observationRange> <text>8.5-10.1</text> </observationRange> </ referenceRange> </observation> </component> <component> <observation moodCode="EVN" classCode="OBS"> <templateId root= "05.27.840.1.073646.102022.4.2" /> <id nullFlavor="NA" /> < code codeSystem="local" code="BUN" displayName="BLOOD UREA NITROGEN" /> <statusCode code="completed" /> <effectiveTime value="" / > <value unit="mg/dL" xsi:type="PQ" value="7" /> < referenceRange> <observationRange> <text>7-20</text> </observationRange> </referenceRange> </observation> </component> <component> <observation moodCode="EVN" classCode= "OBS"> <templateId root="16.840.1.983768.10..22.4.2" /> < id nullFlavor="NA" /> <code codeSystem="local" code="CREAT" displayName ="CREATININE" /> <statusCode code="completed" /> < effectiveTime value="" /> <value unit="mg/dL" xsi:type="PQ " value="0.8" /> <referenceRange> <observationRange> <text>0.6-1.0</text> </observationRange> </ referenceRange> </observation> </component> <component> <observation moodCode="EVN" classCode="OBS"> <templateId root= "16.840.1.458415.10...4.2" /> <id nullFlavor="NA" /> < code codeSystem="local" code="NA" displayName="SODIUM" /> <statusCode code="completed" /> <effectiveTime value="" /> < value unit="mmol/L" xsi:type="PQ" value="137" /> <referenceRange> <observationRange> <text>135-148</text> </ observationRange> </referenceRange> </observation> </ component> <component> <observation moodCode="EVN" classCode="OBS"> <templateId root="05.27.840.1.258087...22.4.2" /> <id nullFlavor="NA" /> <code codeSystem="local" code="CL" displayName= "CHLORIDE" /> <statusCode code="completed" /> <effectiveTime value="" /> <value unit="mmol/L" xsi:type="PQ" value="100" /> <referenceRange> <observationRange> <text>98 -110</text> </observationRange> </referenceRange> </ observation> </component> <component> <observation moodCode= "EVN" classCode="OBS"> <templateId root="216.840.1.581794.01.28.22.4.2 " /> <id nullFlavor="NA" /> <code codeSystem="local" code="AST " displayName="AST/SGOT" /> <statusCode code="completed" /> < effectiveTime value="" /> <value unit="Units/L" xsi:type= "PQ" value="14" /> <referenceRange> <observationRange> <text>10-37</text> </observationRange> </ referenceRange> </observation> </component> <component> <observation moodCode="EVN" classCode="OBS"> <templateId root= "2.16.840.1.122383...4.2" /> <id nullFlavor="NA" /> < code codeSystem="local" code="ALT" displayName="ALT/SGPT" /> < statusCode code="completed" /> <effectiveTime value="" /> <value unit="Units/L" xsi:type="PQ" value="17" /> < referenceRange> <observationRange> <text>< 66</text> </observationRange> </referenceRange> </observation > </component> <component> <observation moodCode="EVN" classCode="OBS"> <templateId root="16.840.1.027002.10.20.22.4.2" /> <id nullFlavor="NA" /> <code codeSystem="local" code="CO2" displayName="CARBON DIOXIDE" /> <statusCode code="completed" /> <effectiveTime value="" /> <value unit="mmol/L" xsi:type ="PQ" value="24" /> <referenceRange> <observationRange> <text>21-32</text> </observationRange> </ referenceRange> </observation> </component> <component> <observation moodCode="EVN" classCode="OBS"> <templateId root= "16.840.1.459721..22.4.2" /> <id nullFlavor="NA" /> < code codeSystem="local" code="TP" displayName="TOTAL PROTEIN" /> < statusCode code="completed" /> <effectiveTime value="" /> <value unit="gm/dL" xsi:type="PQ" value="7.9" /> < referenceRange> <observationRange> <text>6.4-8.2</text> </observationRange> </referenceRange> </observation > </component> <component> <observation moodCode="EVN" classCode="OBS"> <templateId root="05.27.840.1.396912.10.20.22.4.2" /> <id nullFlavor="NA" /> <code codeSystem="local" code="ALB" displayName="ALBUMIN" /> <statusCode code="completed" /> < effectiveTime value="" /> <value unit="gm/dL" xsi:type="PQ " value="3.7" /> <referenceRange> <observationRange> <text>3.4-5.0</text> </observationRange> </ referenceRange> </observation> </component> <component> <observation moodCode="EVN" classCode="OBS"> <templateId root= "2.16.840.1.161566.10..4.2" /> <id nullFlavor="NA" /> < code codeSystem="local" code="BILTOT" displayName="BILI TOTAL" /> < statusCode code="completed" /> <effectiveTime value="" /> <value unit="mg/dL" xsi:type="PQ" value="0.3" /> < referenceRange> <observationRange> <text>0.0-1.0</text> </observationRange> </referenceRange> </observation > </component> <component> <observation moodCode="EVN" classCode="OBS"> <templateId root="2.16.840.1.466245.01.28.22.4.2" /> <id nullFlavor="NA" /> <code codeSystem="local" code="ALKP" displayName="ALKALINE PHOSPHATASE TOTAL" /> <statusCode code="completed " /> <effectiveTime value="" /> <value unit="IU/L " xsi:type="PQ" value="49" /> <referenceRange> < observationRange> <text>45-117</text> </observationRange > </referenceRange> </observation> </component> </ organizer> </entry> <entry> <organizer moodCode="EVN" classCode="BATTERY"> <templateId root="2.16.840.1.396756.10...4.1" /> <id nullFlavor= "NA" /> <code codeSystem="local" code="GLUMON" displayName="GLUCOSE (POC)" /> <statusCode code="completed" /> <component> <observation moodCode="EVN" classCode="OBS"> <templateId root= "2.16.840.1.909862.10.20.22.4.2" /> <id nullFlavor="NA" /> < code codeSystem="local" code="GLUMON" displayName="GLUCOSE (POC)" /> < statusCode code="completed" /> <effectiveTime value="147942178031" /> <value unit="mg/dL" xsi:type="PQ" value="105" /> < interpretationCode codeSystem="local" code="*" /> <referenceRange> <observationRange> <text>70-99</text> </ observationRange> </referenceRange> </observation> </ component> </organizer> </entry> <entry> <organizer moodCode="EVN" classCode="BATTERY"> <templateId root="2.16.840.1.618607.10.20.22.4.1" /> <id nullFlavor="NA" /> <code codeSystem="local" code="GLUMON" displayName="GLUCOSE (POC)" /> <statusCode code="completed" /> < component> <observation moodCode="EVN" classCode="OBS"> < templateId root="2.16.840.1.495851.10.20.22.4.2" /> <id nullFlavor="NA " /> <code codeSystem="local" code="GLUMON" displayName="GLUCOSE (POC) " /> <statusCode code="completed" /> <effectiveTime value= "591430692799" /> <value unit="mg/dL" xsi:type="PQ" value="106" /> <interpretationCode codeSystem="local" code="*" /> < referenceRange> <observationRange> <text>70-99</text> </observationRange> </referenceRange> </observation> </component> </organizer> </entry> <entry> <organizer moodCode="EVN " classCode="BATTERY"> <templateId root="216.840.1.360643.10..22.4.1" / > <id nullFlavor="NA" /> <code codeSystem="local" code="CBC" displayName="CBC" /> <statusCode code="completed" /> <component> <observation moodCode="EVN" classCode="OBS"> <templateId root= "16.840.1.239357.10..22.4.2" /> <id nullFlavor="NA" /> < code codeSystem="local" code="MCH" displayName="MEAN CELL HGB" /> < statusCode code="completed" /> <effectiveTime value="349013805503" /> <value unit="pg" xsi:type="PQ" value="26.5" /> < interpretationCode codeSystem="local" code="*" /> <referenceRange> <observationRange> <text>27.0-33.0</text> </ observationRange> </referenceRange> </observation> </ component> <component> <observation moodCode="EVN" classCode="OBS"> <templateId root="16.840.1.314642.10..22.4.2" /> <id nullFlavor="NA" /> <code codeSystem="local" code="MCHC" displayName= "MEAN CELL HGB CONCENTRATION" /> <statusCode code="completed" /> <effectiveTime value="335873709966" /> <value unit="g/dL" xsi:type= "PQ" value="32.0" /> <referenceRange> <observationRange> <text>32.0-37.0</text> </observationRange> </ referenceRange> </observation> </component> <component> <observation moodCode="EVN" classCode="OBS"> <templateId root= "16.840.1.238472.10.20.22.4.2" /> <id nullFlavor="NA" /> < code codeSystem="local" code="MCV" displayName="MEAN CELL VOLUME" /> < statusCode code="completed" /> <effectiveTime value="549837927206" /> <value unit="fl" xsi:type="PQ" value="83.0" /> <referenceRange > <observationRange> <text>80.0-100.0</text> </observationRange> </referenceRange> </observation> </ component> <component> <observation moodCode="EVN" classCode="OBS"> <templateId root="05.27.840.1.193478.10..22.4.2" /> <id nullFlavor="NA" /> <code codeSystem="local" code="RBC" displayName=" RED BLOOD CELL" /> <statusCode code="completed" /> < effectiveTime value="" /> <value unit="m/cumm" xsi:type="PQ " value="4.07" /> <referenceRange> <observationRange> <text>4.00-6.00</text> </observationRange> </ referenceRange> </observation> </component> <component> <observation moodCode="EVN" classCode="OBS"> <templateId root= "05.27.840.1.051943.10..22.4.2" /> <id nullFlavor="NA" /> < code codeSystem="local" code="RDW" displayName="RED CELL DISTRIBUTION WIDTH" /> <statusCode code="completed" /> <effectiveTime value= "" /> <value unit="%" xsi:type="PQ" value="15.5" /> <referenceRange> <observationRange> <text>11.0- 15.6</text> </observationRange> </referenceRange> </ observation> </component> <component> <observation moodCode= "EVN" classCode="OBS"> <templateId root="05.27.840.1.790420.1022.4.2 " /> <id nullFlavor="NA" /> <code codeSystem="local" code="WBC " displayName="WHITE BLOOD CELL" /> <statusCode code="completed" /> <effectiveTime value="605109295818" /> <value unit="k/cumm" xsi: type="PQ" value="9.1" /> <referenceRange> <observationRange > <text>5.0-10.0</text> </observationRange> </ referenceRange> </observation> </component> <component> <observation moodCode="EVN" classCode="OBS"> <templateId root= "05.27.840.1.667835.01.28.22.4.2" /> <id nullFlavor="NA" /> < code codeSystem="local" code="HGBT" displayName="HEMOGLOBIN" /> < statusCode code="completed" /> <effectiveTime value="825001689610" /> <value unit="gm/dL" xsi:type="PQ" value="10.8" /> < interpretationCode codeSystem="local" code="*" /> <referenceRange> <observationRange> <text>12.0-16.0</text> </ observationRange> </referenceRange> </observation> </ component> <component> <observation moodCode="EVN" classCode="OBS"> <templateId root="05.27.840.1.084394.01.28.22.4.2" /> <id nullFlavor="NA" /> <code codeSystem="local" code="HCTT" displayName= "HEMATOCRIT" /> <statusCode code="completed" /> < effectiveTime value="[id number]" /> <value unit="%" xsi:type="PQ " value="33.8" /> <interpretationCode codeSystem="local" code="*" /> <referenceRange> <observationRange> <text>37.0- 47.0</text> </observationRange> </referenceRange> </ observation> </component> <component> <observation moodCode= "EVN" classCode="OBS"> <templateId root="[id number]..4.2 " /> <id nullFlavor="NA" /> <code codeSystem="local" code="PLT " displayName="PLATELET COUNT" /> <statusCode code="completed" /> <effectiveTime value="269534715678" /> <value unit="k/cumm" xsi: type="PQ" value="327" /> <referenceRange> <observationRange > <text>150-400</text> </observationRange> </ referenceRange> </observation> </component> </organizer> </entry > <entry> <organizer moodCode="EVN" classCode="BATTERY"> <templateId root="840.1.035140.01.28.22.4.1" /> <id nullFlavor="NA" /> <code codeSystem="local" code="METABC" displayName="METABOLIC PANEL, COMPREHN" /> <statusCode code="completed" /> <component> <observation moodCode= "EVN" classCode="OBS"> <templateId root="840.1.481156.10.4.2 " /> <id nullFlavor="NA" /> <code codeSystem="local" code="K" displayName="POTASSIUM" /> <statusCode code="completed" /> < effectiveTime value="743278659397" /> <value unit="mmol/L" xsi:type="PQ " value="4.0" /> <referenceRange> <observationRange> <text>3.5-5.3</text> </observationRange> </ referenceRange> </observation> </component> <component> <observation moodCode="EVN" classCode="OBS"> <templateId root= "16.840.1.933018.01.28.22.4.2" /> <id nullFlavor="NA" /> < code codeSystem="local" code="eGFR" displayName="EST GFR (MDRD)" /> < statusCode code="completed" /> <effectiveTime value="865092585929" /> <value unit="mL/min" xsi:type="PQ" value="> 60" /> < referenceRange> <observationRange> <text>> 59</text> </observationRange> </referenceRange> </observation > </component> <component> <observation moodCode="EVN" classCode="OBS"> <templateId root="05.27.840.1.887044.01.28.22.4.2" /> <id nullFlavor="NA" /> <code codeSystem="local" code="GAP" displayName="ANION GAP" /> <statusCode code="completed" /> < effectiveTime value="561219960145" /> <value unit="mmol/L" xsi:type="PQ " value="6" /> <referenceRange> <observationRange> <text>5-15</text> </observationRange> </referenceRange > </observation> </component> <component> <observation moodCode="EVN" classCode="OBS"> <templateId root= "216.840.1.165906.10.22.4.2" /> <id nullFlavor="NA" /> < code codeSystem="local" code="eCrCl" displayName="EST CrCl (CG)" /> < statusCode code="completed" /> <effectiveTime value="251377477433" /> <value unit="mL/min" xsi:type="PQ" value="> 60" /> < referenceRange> <observationRange> <text>> 59</text> </observationRange> </referenceRange> </observation > </component> <component> <observation moodCode="EVN" classCode="OBS"> <templateId root="216.840.1.814485.10..22.4.2" /> <id nullFlavor="NA" /> <code codeSystem="local" code="GLU" displayName="GLUCOSE" /> <statusCode code="completed" /> < effectiveTime value="393555300182" /> <value unit="mg/dL" xsi:type="PQ " value="96" /> <referenceRange> <observationRange> <text>70-99</text> </observationRange> </ referenceRange> </observation> </component> <component> <observation moodCode="EVN" classCode="OBS"> <templateId root= "16.840.1.239424.10.20.22.4.2" /> <id nullFlavor="NA" /> < code codeSystem="local" code="CA" displayName="CALCIUM" /> <statusCode code="completed" /> <effectiveTime value="580767598472" /> < value unit="mg/dL" xsi:type="PQ" value="8.4" /> <interpretationCode codeSystem="local" code="*" /> <referenceRange> < observationRange> <text>8.5-10.1</text> </ observationRange> </referenceRange> </observation> </ component> <component> <observation moodCode="EVN" classCode="OBS"> <templateId root="16.840.1.168390.10..22.4.2" /> <id nullFlavor="NA" /> <code codeSystem="local" code="BUN" displayName= "BLOOD UREA NITROGEN" /> <statusCode code="completed" /> < effectiveTime value="967108508544" /> <value unit="mg/dL" xsi:type="PQ " value="5" /> <interpretationCode codeSystem="local" code="*" /> <referenceRange> <observationRange> <text>7-20</ text> </observationRange> </referenceRange> </ observation> </component> <component> <observation moodCode= "EVN" classCode="OBS"> <templateId root="05.27.840.1.432922.01.28.22.4.2 " /> <id nullFlavor="NA" /> <code codeSystem="local" code= "CREAT" displayName="CREATININE" /> <statusCode code="completed" /> <effectiveTime value="" /> <value unit="mg/dL" xsi: type="PQ" value="0.6" /> <referenceRange> <observationRange > <text>0.6-1.0</text> </observationRange> </ referenceRange> </observation> </component> <component> <observation moodCode="EVN" classCode="OBS"> <templateId root= "05.27.840.1.249367.10..22.4.2" /> <id nullFlavor="NA" /> < code codeSystem="local" code="NA" displayName="SODIUM" /> <statusCode code="completed" /> <effectiveTime value="745612508712" /> < value unit="mmol/L" xsi:type="PQ" value="134" /> <interpretationCode codeSystem="local" code="*" /> <referenceRange> < observationRange> <text>135-148</text> </ observationRange> </referenceRange> </observation> </ component> <component> <observation moodCode="EVN" classCode="OBS"> <templateId root="216.840.1.807045.10..22.4.2" /> <id nullFlavor="NA" /> <code codeSystem="local" code="CL" displayName= "CHLORIDE" /> <statusCode code="completed" /> <effectiveTime value="369001175717" /> <value unit="mmol/L" xsi:type="PQ" value="104" /> <referenceRange> <observationRange> <text>98 -110</text> </observationRange> </referenceRange> </ observation> </component> <component> <observation moodCode= "EVN" classCode="OBS"> <templateId root="16.840.1.582155.10..4.2 " /> <id nullFlavor="NA" /> <code codeSystem="local" code="AST " displayName="AST/SGOT" /> <statusCode code="completed" /> < effectiveTime value="336135614084" /> <value unit="Units/L" xsi:type= "PQ" value="13" /> <referenceRange> <observationRange> <text>10-37</text> </observationRange> </ referenceRange> </observation> </component> <component> <observation moodCode="EVN" classCode="OBS"> <templateId root= "16.840.1.460806.10.2022.4.2" /> <id nullFlavor="NA" /> < code codeSystem="local" code="ALT" displayName="ALT/SGPT" /> < statusCode code="completed" /> <effectiveTime value="254052858376" /> <value unit="Units/L" xsi:type="PQ" value="15" /> < referenceRange> <observationRange> <text>< 66</text> </observationRange> </referenceRange> </observation > </component> <component> <observation moodCode="EVN" classCode="OBS"> <templateId root="16.840.1.218302.10.4.2" /> <id nullFlavor="NA" /> <code codeSystem="local" code="CO2" displayName="CARBON DIOXIDE" /> <statusCode code="completed" /> <effectiveTime value="296652094042" /> <value unit="mmol/L" xsi:type ="PQ" value="24" /> <referenceRange> <observationRange> <text>21-32</text> </observationRange> </ referenceRange> </observation> </component> <component> <observation moodCode="EVN" classCode="OBS"> <templateId root= "05.27.840.1.525552.01.28.22.4.2" /> <id nullFlavor="NA" /> < code codeSystem="local" code="TP" displayName="TOTAL PROTEIN" /> < statusCode code="completed" /> <effectiveTime value="534776858962" /> <value unit="gm/dL" xsi:type="PQ" value="7.3" /> < referenceRange> <observationRange> <text>6.4-8.2</text> </observationRange> </referenceRange> </observation > </component> <component> <observation moodCode="EVN" classCode="OBS"> <templateId root="05.27.840.1.714645.10.22.4.2" /> <id nullFlavor="NA" /> <code codeSystem="local" code="ALB" displayName="ALBUMIN" /> <statusCode code="completed" /> < effectiveTime value="259748159930" /> <value unit="gm/dL" xsi:type="PQ " value="3.4" /> <referenceRange> <observationRange> <text>3.4-5.0</text> </observationRange> </ referenceRange> </observation> </component> <component> <observation moodCode="EVN" classCode="OBS"> <templateId root= "2.16.840.1.727965.10.20.22.4.2" /> <id nullFlavor="NA" /> < code codeSystem="local" code="BILTOT" displayName="BILI TOTAL" /> < statusCode code="completed" /> <effectiveTime value="334870083832" /> <value unit="mg/dL" xsi:type="PQ" value="0.5" /> < referenceRange> <observationRange> <text>0.0-1.0</text> </observationRange> </referenceRange> </observation > </component> <component> <observation moodCode="EVN" classCode="OBS"> <templateId root="2.16.840.1.437665.10..22.4.2" /> <id nullFlavor="NA" /> <code codeSystem="local" code="ALKP" displayName="ALKALINE PHOSPHATASE TOTAL" /> <statusCode code="completed " /> <effectiveTime value="082211726875" /> <value unit="IU/L " xsi:type="PQ" value="49" /> <referenceRange> < observationRange> <text>45-117</text> </observationRange > </referenceRange> </observation> </component> </ organizer> </entry> <entry> <organizer moodCode="EVN" classCode="BATTERY"> <templateId root="840.1.591947.01.28.22.4.1" /> <id nullFlavor= "NA" /> <code codeSystem="local" code="MAG" displayName="MAGNESIUM" /> <statusCode code="completed" /> <component> <observation moodCode= "EVN" classCode="OBS"> <templateId root="840.1.165617.01.28.22.4.2 " /> <id nullFlavor="NA" /> <code codeSystem="local" code="MAG " displayName="MAGNESIUM" /> <statusCode code="completed" /> < effectiveTime value="528019243929" /> <value unit="mg/dL" xsi:type="PQ " value="1.7" /> <interpretationCode codeSystem="local" code="*" /> <referenceRange> <observationRange> <text>1.8-2.4 </text> </observationRange> </referenceRange> </ observation> </component> </organizer> </entry> <entry> <organizer moodCode="EVN" classCode="BATTERY"> <templateId root= "840.1.457351.01.28.22.4.1" /> <id nullFlavor="NA" /> <code codeSystem="local" code="PT" displayName="PROTHROMBIN TIME WITH INR" /> < statusCode code="completed" /> <component> <observation moodCode= "EVN" classCode="OBS"> <templateId root="840.1.159921.01.28.22.4.2 " /> <id nullFlavor="NA" /> <code codeSystem="local" code= "INRX" displayName="INTERNATIONAL NORMAL RATIO" /> <statusCode code= "completed" /> <effectiveTime value="240146704702" /> <value unit="" xsi:type="PQ" value="1.3" /> <interpretationCode codeSystem= "local" code="*" /> <referenceRange> <observationRange> <text>0.9-1.1</text> </observationRange> </ referenceRange> </observation> </component> <component> <observation moodCode="EVN" classCode="OBS"> <templateId root= "840.1.909291.1022.4.2" /> <id nullFlavor="NA" /> < code codeSystem="local" code="PTPAT" displayName="PROTHROMBIN TIME" /> <statusCode code="completed" /> <effectiveTime value="304014872029" /> <value unit="sec" xsi:type="PQ" value="14.2" /> < interpretationCode codeSystem="local" code="*" /> <referenceRange> <observationRange> <text>9.3-12.2</text> </ observationRange> </referenceRange> </observation> </ component> </organizer> </entry> <entry> <organizer moodCode="EVN" classCode="BATTERY"> <templateId root="840.1.948751.22.4.1" /> <id nullFlavor="NA" /> <code codeSystem="local" code="PTT" displayName ="PARTIAL THROMBOPLASTIN TIME" /> <statusCode code="completed" /> < component> <observation moodCode="EVN" classCode="OBS"> < templateId root="840.1.872335.22.4.2" /> <id nullFlavor="NA " /> <code codeSystem="local" code="PTT" displayName="PARTIAL THROMBOPLASTIN TIME" /> <statusCode code="completed" /> < effectiveTime value="391797581977" /> <value unit="sec" xsi:type="PQ" value="41" /> <interpretationCode codeSystem="local" code="*" /> <referenceRange> <observationRange> <text>23-39</ text> </observationRange> </referenceRange> </ observation> </component> </organizer> </entry> <entry> <organizer moodCode="EVN" classCode="BATTERY"> <templateId root= "216.840.1.317872.10..22.4.1" /> <id nullFlavor="NA" /> <code codeSystem="local" code="GLUMON" displayName="GLUCOSE (POC)" /> < statusCode code="completed" /> <component> <observation moodCode= "EVN" classCode="OBS"> <templateId root="216.840.1.240818.10..22.4.2 " /> <id nullFlavor="NA" /> <code codeSystem="local" code= "GLUMON" displayName="GLUCOSE (POC)" /> <statusCode code="completed" / > <effectiveTime value="285440094669" /> <value unit="mg/dL" xsi:type="PQ" value="110" /> <interpretationCode codeSystem="local" code="*" /> <referenceRange> <observationRange> <text>70-99</text> </observationRange> </referenceRange> </observation> </component> </organizer> </entry> <entry> < organizer moodCode="EVN" classCode="BATTERY"> <templateId root= "216.840.1.251872.10..22.4.1" /> <id nullFlavor="NA" /> <code codeSystem="local" code="GLUMON" displayName="GLUCOSE (POC)" /> < statusCode code="completed" /> <component> <observation moodCode= "EVN" classCode="OBS"> <templateId root="2.16.840.1.143229.10.20.22.4.2 " /> <id nullFlavor="NA" /> <code codeSystem="local" code= "GLUMON" displayName="GLUCOSE (POC)" /> <statusCode code="completed" / > <effectiveTime value="291300438011" /> <value unit="mg/dL" xsi:type="PQ" value="99" /> <referenceRange> < observationRange> <text>70-99</text> </observationRange > </referenceRange> </observation> </component> </ organizer> </entry> <entry> <organizer moodCode="EVN" classCode="BATTERY"> <templateId root="2.16.840.1.638490.10.20.22.4.1" /> <id nullFlavor= "NA" /> <code codeSystem="local" code="PTTH" displayName="PTT HEPARIN PROTOCOLS" /> <statusCode code="completed" /> <component> < observation moodCode="EVN" classCode="OBS"> <templateId root= "2.16.840.1.489954.10.20.22.4.2" /> <id nullFlavor="NA" /> < code codeSystem="local" code="PTT" displayName="PARTIAL THROMBOPLASTIN TIME" /> <statusCode code="completed" /> <effectiveTime value= "433936481407" /> <value unit="sec" xsi:type="PQ" value="84" /> <interpretationCode codeSystem="local" code="*" /> <referenceRange> <observationRange> <text>23-39</text> </ observationRange> </referenceRange> </observation> </ component> </organizer> </entry> <entry> <organizer moodCode="EVN" classCode="BATTERY"> <templateId root="840.1.116792.10.4.1" /> <id nullFlavor="NA" /> <code codeSystem="local" code="GLUMON" displayName="GLUCOSE (POC)" /> <statusCode code="completed" /> < component> <observation moodCode="EVN" classCode="OBS"> < templateId root="840.1.058514.01.28.22.4.2" /> <id nullFlavor="NA " /> <code codeSystem="local" code="GLUMON" displayName="GLUCOSE (POC) " /> <statusCode code="completed" /> <effectiveTime value= "319224434423" /> <value unit="mg/dL" xsi:type="PQ" value="88" /> <referenceRange> <observationRange> <text>70-99</ text> </observationRange> </referenceRange> </ observation> </component> </organizer> </entry> <entry> <organizer moodCode="EVN" classCode="BATTERY"> <templateId root= "840.1.747216.01.28.22.4.1" /> <id nullFlavor="NA" /> <code codeSystem="local" code="CBC" displayName="CBC" /> <statusCode code= "completed" /> <component> <observation moodCode="EVN" classCode= "OBS"> <templateId root="840.1.433980.10.4.2" /> < id nullFlavor="NA" /> <code codeSystem="local" code="MCH" displayName= "MEAN CELL HGB" /> <statusCode code="completed" /> < effectiveTime value="534122576933" /> <value unit="pg" xsi:type="PQ" value="26.9" /> <interpretationCode codeSystem="local" code="*" /> <referenceRange> <observationRange> <text>27.0- 33.0</text> </observationRange> </referenceRange> </ observation> </component> <component> <observation moodCode= "EVN" classCode="OBS"> <templateId root="05.27.840.1.894902.22.4.2 " /> <id nullFlavor="NA" /> <code codeSystem="local" code= "MCHC" displayName="MEAN CELL HGB CONCENTRATION" /> <statusCode code= "completed" /> <effectiveTime value="519656729876" /> <value unit="g/dL" xsi:type="PQ" value="31.8" /> <interpretationCode codeSystem="local" code="*" /> <referenceRange> < observationRange> <text>32.0-37.0</text> </ observationRange> </referenceRange> </observation> </ component> <component> <observation moodCode="EVN" classCode="OBS"> <templateId root="05.27.840.1.012596.01.28.22.4.2" /> <id nullFlavor="NA" /> <code codeSystem="local" code="MCV" displayName= "MEAN CELL VOLUME" /> <statusCode code="completed" /> < effectiveTime value="103437987332" /> <value unit="fl" xsi:type="PQ" value="84.7" /> <referenceRange> <observationRange> <text>80.0-100.0</text> </observationRange> </ referenceRange> </observation> </component> <component> <observation moodCode="EVN" classCode="OBS"> <templateId root= "16.840.1.917263.22.4.2" /> <id nullFlavor="NA" /> < code codeSystem="local" code="RBC" displayName="RED BLOOD CELL" /> < statusCode code="completed" /> <effectiveTime value="" /> <value unit="m/cumm" xsi:type="PQ" value="3.79" /> < interpretationCode codeSystem="local" code="*" /> <referenceRange> <observationRange> <text>4.00-6.00</text> </ observationRange> </referenceRange> </observation> </ component> <component> <observation moodCode="EVN" classCode="OBS"> <templateId root="216.840.1.714782.01.28.224.2" /> <id nullFlavor="NA" /> <code codeSystem="local" code="RDW" displayName=" RED CELL DISTRIBUTION WIDTH" /> <statusCode code="completed" /> <effectiveTime value="" /> <value unit="%" xsi:type= "PQ" value="15.5" /> <referenceRange> <observationRange> <text>11.0-15.6</text> </observationRange> </ referenceRange> </observation> </component> <component> <observation moodCode="EVN" classCode="OBS"> <templateId root= "216.840.1.598937.01.28.22.4.2" /> <id nullFlavor="NA" /> < code codeSystem="local" code="WBC" displayName="WHITE BLOOD CELL" /> < statusCode code="completed" /> <effectiveTime value="" /> <value unit="k/cumm" xsi:type="PQ" value="10.0" /> < referenceRange> <observationRange> <text>5.0-10.0</text > </observationRange> </referenceRange> </observation > </component> <component> <observation moodCode="EVN" classCode="OBS"> <templateId root="05.27.840.1.346315.10.2022.4.2" /> <id nullFlavor="NA" /> <code codeSystem="local" code="HGBT" displayName="HEMOGLOBIN" /> <statusCode code="completed" /> < effectiveTime value="149360346048" /> <value unit="gm/dL" xsi:type="PQ " value="10.2" /> <interpretationCode codeSystem="local" code="*" /> <referenceRange> <observationRange> <text>12.0- 16.0</text> </observationRange> </referenceRange> </ observation> </component> <component> <observation moodCode= "EVN" classCode="OBS"> <templateId root="05.27.840.1.117438.01.28.22.4.2 " /> <id nullFlavor="NA" /> <code codeSystem="local" code= "HCTT" displayName="HEMATOCRIT" /> <statusCode code="completed" /> <effectiveTime value="084121096166" /> <value unit="%" xsi: type="PQ" value="32.1" /> <interpretationCode codeSystem="local" code= "*" /> <referenceRange> <observationRange> < text>37.0-47.0</text> </observationRange> </referenceRange> </observation> </component> <component> <observation moodCode="EVN" classCode="OBS"> <templateId root= "05.27.840.1.706984.10.2022.4.2" /> <id nullFlavor="NA" /> < code codeSystem="local" code="PLT" displayName="PLATELET COUNT" /> < statusCode code="completed" /> <effectiveTime value="363369863943" /> <value unit="k/cumm" xsi:type="PQ" value="296" /> < referenceRange> <observationRange> <text>150-400</text> </observationRange> </referenceRange> </observation > </component> </organizer> </entry> <entry> <organizer moodCode= "EVN" classCode="BATTERY"> <templateId root="216.840.1.442134.10..22.4.1 " /> <id nullFlavor="NA" /> <code codeSystem="local" code="PTTH" displayName="PTT HEPARIN PROTOCOLS" /> <statusCode code="completed" /> <component> <observation moodCode="EVN" classCode="OBS"> < templateId root="216.840.1.586000.10..22.4.2" /> <id nullFlavor="NA " /> <code codeSystem="local" code="PTT" displayName="PARTIAL THROMBOPLASTIN TIME" /> <statusCode code="completed" /> < effectiveTime value="950385506869" /> <value unit="sec" xsi:type="PQ" value="175" /> <interpretationCode codeSystem="local" code="" /> <referenceRange> <observationRange> <text>23-39</ text> </observationRange> </referenceRange> </ observation> </component> </organizer> </entry> <entry> <organizer moodCode="EVN" classCode="BATTERY"> <templateId root= "216.840.1.111453.10...4.1" /> <id nullFlavor="NA" /> <code codeSystem="local" code="METABC" displayName="METABOLIC PANEL, COMPREHN" /> <statusCode code="completed" /> <component> <observation moodCode= "EVN" classCode="OBS"> <templateId root="16.840.1.914289.10..22.4.2 " /> <id nullFlavor="NA" /> <code codeSystem="local" code="K" displayName="POTASSIUM" /> <statusCode code="completed" /> < effectiveTime value="" /> <value unit="mmol/L" xsi:type="PQ " value="4.0" /> <referenceRange> <observationRange> <text>3.5-5.3</text> </observationRange> </ referenceRange> </observation> </component> <component> <observation moodCode="EVN" classCode="OBS"> <templateId root= "05.27.840.1.931611.10..4.2" /> <id nullFlavor="NA" /> < code codeSystem="local" code="eGFR" displayName="EST GFR (MDRD)" /> < statusCode code="completed" /> <effectiveTime value="" /> <value unit="mL/min" xsi:type="PQ" value="> 60" /> < referenceRange> <observationRange> <text>> 59</text> </observationRange> </referenceRange> </observation > </component> <component> <observation moodCode="EVN" classCode="OBS"> <templateId root="05.27.840.1.735257.10..22.4.2" /> <id nullFlavor="NA" /> <code codeSystem="local" code="GAP" displayName="ANION GAP" /> <statusCode code="completed" /> < effectiveTime value="" /> <value unit="mmol/L" xsi:type="PQ " value="6" /> <referenceRange> <observationRange> <text>5-15</text> </observationRange> </referenceRange > </observation> </component> <component> <observation moodCode="EVN" classCode="OBS"> <templateId root= "16.840.1.277016.10.22.4.2" /> <id nullFlavor="NA" /> < code codeSystem="local" code="eCrCl" displayName="EST CrCl (CG)" /> < statusCode code="completed" /> <effectiveTime value="" /> <value unit="mL/min" xsi:type="PQ" value="> 60" /> < referenceRange> <observationRange> <text>> 59</text> </observationRange> </referenceRange> </observation > </component> <component> <observation moodCode="EVN" classCode="OBS"> <templateId root="05.27.840.1.960396.01.28.22.4.2" /> <id nullFlavor="NA" /> <code codeSystem="local" code="GLU" displayName="GLUCOSE" /> <statusCode code="completed" /> < effectiveTime value="" /> <value unit="mg/dL" xsi:type="PQ " value="81" /> <referenceRange> <observationRange> <text>70-99</text> </observationRange> </ referenceRange> </observation> </component> <component> <observation moodCode="EVN" classCode="OBS"> <templateId root= "05.27.840.1.196856...4.2" /> <id nullFlavor="NA" /> < code codeSystem="local" code="CA" displayName="CALCIUM" /> <statusCode code="completed" /> <effectiveTime value="" /> < value unit="mg/dL" xsi:type="PQ" value="8.1" /> <interpretationCode codeSystem="local" code="*" /> <referenceRange> < observationRange> <text>8.5-10.1</text> </ observationRange> </referenceRange> </observation> </ component> <component> <observation moodCode="EVN" classCode="OBS"> <templateId root="216.840.1.477972.22.4.2" /> <id nullFlavor="NA" /> <code codeSystem="local" code="BUN" displayName= "BLOOD UREA NITROGEN" /> <statusCode code="completed" /> < effectiveTime value="232223779736" /> <value unit="mg/dL" xsi:type="PQ " value="5" /> <interpretationCode codeSystem="local" code="*" /> <referenceRange> <observationRange> <text>7-20</ text> </observationRange> </referenceRange> </ observation> </component> <component> <observation moodCode= "EVN" classCode="OBS"> <templateId root="16.840.1.954914.01.28.22.4.2 " /> <id nullFlavor="NA" /> <code codeSystem="local" code= "CREAT" displayName="CREATININE" /> <statusCode code="completed" /> <effectiveTime value="756793053121" /> <value unit="mg/dL" xsi: type="PQ" value="0.6" /> <referenceRange> <observationRange > <text>0.6-1.0</text> </observationRange> </ referenceRange> </observation> </component> <component> <observation moodCode="EVN" classCode="OBS"> <templateId root= "216.840.1.406228.01.28.22.4.2" /> <id nullFlavor="NA" /> < code codeSystem="local" code="NA" displayName="SODIUM" /> <statusCode code="completed" /> <effectiveTime value="" /> < value unit="mmol/L" xsi:type="PQ" value="138" /> <referenceRange> <observationRange> <text>135-148</text> </ observationRange> </referenceRange> </observation> </ component> <component> <observation moodCode="EVN" classCode="OBS"> <templateId root="2.16.840.1.797839.10..22.4.2" /> <id nullFlavor="NA" /> <code codeSystem="local" code="CL" displayName= "CHLORIDE" /> <statusCode code="completed" /> <effectiveTime value="" /> <value unit="mmol/L" xsi:type="PQ" value="105" /> <referenceRange> <observationRange> <text>98 -110</text> </observationRange> </referenceRange> </ observation> </component> <component> <observation moodCode= "EVN" classCode="OBS"> <templateId root="2.16.840.1.488306.10..22.4.2 " /> <id nullFlavor="NA" /> <code codeSystem="local" code="AST " displayName="AST/SGOT" /> <statusCode code="completed" /> < effectiveTime value="" /> <value unit="Units/L" xsi:type= "PQ" value="49" /> <interpretationCode codeSystem="local" code="*" /> <referenceRange> <observationRange> <text>10-37 </text> </observationRange> </referenceRange> </ observation> </component> <component> <observation moodCode= "EVN" classCode="OBS"> <templateId root="16.840.1.709211.10.22.4.2 " /> <id nullFlavor="NA" /> <code codeSystem="local" code="ALT " displayName="ALT/SGPT" /> <statusCode code="completed" /> < effectiveTime value="" /> <value unit="Units/L" xsi:type= "PQ" value="22" /> <referenceRange> <observationRange> <text>< 66</text> </observationRange> </ referenceRange> </observation> </component> <component> <observation moodCode="EVN" classCode="OBS"> <templateId root= "16.840.1.379161.10..4.2" /> <id nullFlavor="NA" /> < code codeSystem="local" code="CO2" displayName="CARBON DIOXIDE" /> < statusCode code="completed" /> <effectiveTime value="" /> <value unit="mmol/L" xsi:type="PQ" value="27" /> < referenceRange> <observationRange> <text>21-32</text> </observationRange> </referenceRange> </observation> </component> <component> <observation moodCode="EVN" classCode= "OBS"> <templateId root="05.27.840.1.326534.10.22.4.2" /> < id nullFlavor="NA" /> <code codeSystem="local" code="TP" displayName= "TOTAL PROTEIN" /> <statusCode code="completed" /> < effectiveTime value="" /> <value unit="gm/dL" xsi:type="PQ " value="7.4" /> <referenceRange> <observationRange> <text>6.4-8.2</text> </observationRange> </ referenceRange> </observation> </component> <component> <observation moodCode="EVN" classCode="OBS"> <templateId root= "16.840.1.748947.10.22.4.2" /> <id nullFlavor="NA" /> < code codeSystem="local" code="ALB" displayName="ALBUMIN" /> < statusCode code="completed" /> <effectiveTime value="" /> <value unit="gm/dL" xsi:type="PQ" value="3.2" /> < interpretationCode codeSystem="local" code="*" /> <referenceRange> <observationRange> <text>3.4-5.0</text> </ observationRange> </referenceRange> </observation> </ component> <component> <observation moodCode="EVN" classCode="OBS"> <templateId root="05.27.840.1.066601.01.28.22.4.2" /> <id nullFlavor="NA" /> <code codeSystem="local" code="BILTOT" displayName= "BILI TOTAL" /> <statusCode code="completed" /> < effectiveTime value="" /> <value unit="mg/dL" xsi:type="PQ " value="0.4" /> <referenceRange> <observationRange> <text>0.0-1.0</text> </observationRange> </ referenceRange> </observation> </component> <component> <observation moodCode="EVN" classCode="OBS"> <templateId root= "16.840.1.129032.10.22.4.2" /> <id nullFlavor="NA" /> < code codeSystem="local" code="ALKP" displayName="ALKALINE PHOSPHATASE TOTAL" /> <statusCode code="completed" /> <effectiveTime value= "514804353773" /> <value unit="IU/L" xsi:type="PQ" value="48" /> <referenceRange> <observationRange> <text>45-117</ text> </observationRange> </referenceRange> </ observation> </component> </organizer> </entry> <entry> <organizer moodCode="EVN" classCode="BATTERY"> <templateId root= "05.27.840.1.067489.10..22.4.1" /> <id nullFlavor="NA" /> <code codeSystem="local" code="CBC" displayName="CBC" /> <statusCode code= "completed" /> <component> <observation moodCode="EVN" classCode= "OBS"> <templateId root="05.27.840.1.941277.10...4.2" /> < id nullFlavor="NA" /> <code codeSystem="local" code="MCH" displayName= "MEAN CELL HGB" /> <statusCode code="completed" /> < effectiveTime value="" /> <value unit="pg" xsi:type="PQ" value="26.5" /> <interpretationCode codeSystem="local" code="*" /> <referenceRange> <observationRange> <text>27.0- 33.0</text> </observationRange> </referenceRange> </ observation> </component> <component> <observation moodCode= "EVN" classCode="OBS"> <templateId root="05.27.840.1.505318...4.2 " /> <id nullFlavor="NA" /> <code codeSystem="local" code= "MCHC" displayName="MEAN CELL HGB CONCENTRATION" /> <statusCode code= "completed" /> <effectiveTime value="" /> <value unit="g/dL" xsi:type="PQ" value="31.5" /> <interpretationCode codeSystem="local" code="*" /> <referenceRange> < observationRange> <text>32.0-37.0</text> </ observationRange> </referenceRange> </observation> </ component> <component> <observation moodCode="EVN" classCode="OBS"> <templateId root="216.840.1.389176.10.4.2" /> <id nullFlavor="NA" /> <code codeSystem="local" code="MCV" displayName= "MEAN CELL VOLUME" /> <statusCode code="completed" /> < effectiveTime value="" /> <value unit="fl" xsi:type="PQ" value="84.1" /> <referenceRange> <observationRange> <text>80.0-100.0</text> </observationRange> </ referenceRange> </observation> </component> <component> <observation moodCode="EVN" classCode="OBS"> <templateId root= "216.840.1.820848.01.28.22.4.2" /> <id nullFlavor="NA" /> < code codeSystem="local" code="RBC" displayName="RED BLOOD CELL" /> < statusCode code="completed" /> <effectiveTime value="" /> <value unit="m/cumm" xsi:type="PQ" value="3.59" /> < interpretationCode codeSystem="local" code="*" /> <referenceRange> <observationRange> <text>4.00-6.00</text> </ observationRange> </referenceRange> </observation> </ component> <component> <observation moodCode="EVN" classCode="OBS"> <templateId root="2.16.840.1.610293.22.4.2" /> <id nullFlavor="NA" /> <code codeSystem="local" code="RDW" displayName=" RED CELL DISTRIBUTION WIDTH" /> <statusCode code="completed" /> <effectiveTime value="" /> <value unit="%" xsi:type= "PQ" value="15.4" /> <referenceRange> <observationRange> <text>11.0-15.6</text> </observationRange> </ referenceRange> </observation> </component> <component> <observation moodCode="EVN" classCode="OBS"> <templateId root= "16.840.1.238800.01.28.22.4.2" /> <id nullFlavor="NA" /> < code codeSystem="local" code="WBC" displayName="WHITE BLOOD CELL" /> < statusCode code="completed" /> <effectiveTime value="" /> <value unit="k/cumm" xsi:type="PQ" value="9.7" /> < referenceRange> <observationRange> <text>5.0-10.0</text > </observationRange> </referenceRange> </observation > </component> <component> <observation moodCode="EVN" classCode="OBS"> <templateId root="16.840.1.326545.01.28.22.4.2" /> <id nullFlavor="NA" /> <code codeSystem="local" code="HGBT" displayName="HEMOGLOBIN" /> <statusCode code="completed" /> < effectiveTime value="[id number]" /> <value unit="gm/dL" xsi:type="PQ " value="9.5" /> <interpretationCode codeSystem="local" code="*" /> <referenceRange> <observationRange> <text>12.0- 16.0</text> </observationRange> </referenceRange> </ observation> </component> <component> <observation moodCode= "EVN" classCode="OBS"> <templateId root="216.840.1.949004.10.20.22.4.2 " /> <id nullFlavor="NA" /> <code codeSystem="local" code= "HCTT" displayName="HEMATOCRIT" /> <statusCode code="completed" /> <effectiveTime value="" /> <value unit="%" xsi: type="PQ" value="30.2" /> <interpretationCode codeSystem="local" code= "*" /> <referenceRange> <observationRange> < text>37.0-47.0</text> </observationRange> </referenceRange> </observation> </component> <component> <observation moodCode="EVN" classCode="OBS"> <templateId root= "05.27.840.1.130115.10..4.2" /> <id nullFlavor="NA" /> < code codeSystem="local" code="PLT" displayName="PLATELET COUNT" /> < statusCode code="completed" /> <effectiveTime value="" /> <value unit="k/cumm" xsi:type="PQ" value="311" /> < referenceRange> <observationRange> <text>150-400</text> </observationRange> </referenceRange> </observation > </component> </organizer> </entry> <entry> <organizer moodCode= "EVN" classCode="BATTERY"> <templateId root="16.840.1.591404.10.20.22.4.1 " /> <id nullFlavor="NA" /> <code codeSystem="local" code="PREG" displayName=" TEST, SERUM" /> <statusCode code="completed" /> <component> <observation moodCode="EVN" classCode="OBS"> < templateId root="2.16.840.1.836490.10.20.22.4.2" /> <id nullFlavor="NA " /> <code codeSystem="local" code="PREG" displayName=" TEST, SERUM" /> <statusCode code="completed" /> <effectiveTime value ="134461779849" /> <value unit="" xsi:type="PQ" value="NEGATIVE" /> <referenceRange> <observationRange> <text> NEGATIVE</text> </observationRange> </referenceRange> </observation> </component> </organizer> </entry> <entry> < organizer moodCode="EVN" classCode="BATTERY"> <templateId root= "2.16.840.1.167611.10.20.22.4.1" /> <id nullFlavor="NA" /> <code codeSystem="local" code="GLUMON" displayName="GLUCOSE (POC)" /> < statusCode code="completed" /> <component> <observation moodCode= "EVN" classCode="OBS"> <templateId root="2.16.840.1.765563.10.20.22.4.2 " /> <id nullFlavor="NA" /> <code codeSystem="local" code= "GLUMON" displayName="GLUCOSE (POC)" /> <statusCode code="completed" / > <effectiveTime value="651333494388" /> <value unit="mg/dL" xsi:type="PQ" value="84" /> <referenceRange> < observationRange> <text>70-99</text> </observationRange > </referenceRange> </observation> </component> </ organizer> </entry> <entry> <organizer moodCode="EVN" classCode="BATTERY"> <templateId root="05.27.840.1.443861.10.4.1" /> <id nullFlavor= "NA" /> <code codeSystem="local" code="PTTH" displayName="PTT HEPARIN PROTOCOLS" /> <statusCode code="completed" /> <component> < observation moodCode="EVN" classCode="OBS"> <templateId root= "840.1.650399.01.28.22.4.2" /> <id nullFlavor="NA" /> < code codeSystem="local" code="PTT" displayName="PARTIAL THROMBOPLASTIN TIME" /> <statusCode code="completed" /> <effectiveTime value= "653647661716" /> <value unit="sec" xsi:type="PQ" value="105" /> <interpretationCode codeSystem="local" code="*" /> <referenceRange > <observationRange> <text>23-39</text> </ observationRange> </referenceRange> </observation> </ component> </organizer> </entry> <entry> <organizer moodCode="EVN" classCode="BATTERY"> <templateId root="840.1.346769.01.28.22.4.1" /> <id nullFlavor="NA" /> <code codeSystem="local" code="GLUMON" displayName="GLUCOSE (POC)" /> <statusCode code="completed" /> < component> <observation moodCode="EVN" classCode="OBS"> < templateId root="840.1.042659.01.28.22.4.2" /> <id nullFlavor="NA " /> <code codeSystem="local" code="GLUMON" displayName="GLUCOSE (POC) " /> <statusCode code="completed" /> <effectiveTime value= "763318352436" /> <value unit="mg/dL" xsi:type="PQ" value="65" /> <interpretationCode codeSystem="local" code="*" /> <referenceRange > <observationRange> <text>70-99</text> </ observationRange> </referenceRange> </observation> </ component> </organizer> </entry> <entry> <organizer moodCode="EVN" classCode="BATTERY"> <templateId root="05.27.840.1.759270.10.22.4.1" /> <id nullFlavor="NA" /> <code codeSystem="local" code="GLUMON" displayName="GLUCOSE (POC)" /> <statusCode code="completed" /> < component> <observation moodCode="EVN" classCode="OBS"> < templateId root="05.27.840.1.837701.10..22.4.2" /> <id nullFlavor="NA " /> <code codeSystem="local" code="GLUMON" displayName="GLUCOSE (POC) " /> <statusCode code="completed" /> <effectiveTime value= "601404190002" /> <value unit="mg/dL" xsi:type="PQ" value="96" /> <referenceRange> <observationRange> <text>70-99</ text> </observationRange> </referenceRange> </ observation> </component> </organizer> </entry> <entry> <organizer moodCode="EVN" classCode="BATTERY"> <templateId root= "05.27.840.1.211598.10..22.4.1" /> <id nullFlavor="NA" /> <code codeSystem="local" code="GLUMON" displayName="GLUCOSE (POC)" /> < statusCode code="completed" /> <component> <observation moodCode= "EVN" classCode="OBS"> <templateId root="840.1.101714.10..22.4.2 " /> <id nullFlavor="NA" /> <code codeSystem="local" code= "GLUMON" displayName="GLUCOSE (POC)" /> <statusCode code="completed" / > <effectiveTime value="799244745615" /> <value unit="mg/dL" xsi:type="PQ" value="100" /> <interpretationCode codeSystem="local" code="*" /> <referenceRange> <observationRange> <text>70-99</text> </observationRange> </referenceRange> </observation> </component> </organizer> </entry> <entry> < organizer moodCode="EVN" classCode="BATTERY"> <templateId root= "216.840.1.970420.10..22.4.1" /> <id nullFlavor="NA" /> <code codeSystem="local" code="GLUMON" displayName="GLUCOSE (POC)" /> < statusCode code="completed" /> <component> <observation moodCode= "EVN" classCode="OBS"> <templateId root="216.840.1.936184.10..22.4.2 " /> <id nullFlavor="NA" /> <code codeSystem="local" code= "GLUMON" displayName="GLUCOSE (POC)" /> <statusCode code="completed" / > <effectiveTime value="961318129231" /> <value unit="mg/dL" xsi:type="PQ" value="86" /> <referenceRange> < observationRange> <text>70-99</text> </observationRange > </referenceRange> </observation> </component> </ organizer> </entry> <entry> <organizer moodCode="EVN" classCode="BATTERY"> <templateId root="216.840.1.655820.01.28.22.4.1" /> <id nullFlavor= "NA" /> <code codeSystem="local" code="GLUMON" displayName="GLUCOSE (POC)" /> <statusCode code="completed" /> <component> <observation moodCode="EVN" classCode="OBS"> <templateId root= "05.27.840.1.785643.01.28.22.4.2" /> <id nullFlavor="NA" /> < code codeSystem="local" code="GLUMON" displayName="GLUCOSE (POC)" /> < statusCode code="completed" /> <effectiveTime value="050050174260" /> <value unit="mg/dL" xsi:type="PQ" value="105" /> < interpretationCode codeSystem="local" code="*" /> <referenceRange> <observationRange> <text>70-99</text> </ observationRange> </referenceRange> </observation> </ component> </organizer> </entry> <entry> <organizer moodCode="EVN" classCode="BATTERY"> <templateId root="840.1.679828.01.28.22.4.1" /> <id nullFlavor="NA" /> <code codeSystem="local" code="PTTH" displayName="PTT HEPARIN PROTOCOLS" /> <statusCode code="completed" /> <component> <observation moodCode="EVN" classCode="OBS"> < templateId root="840.1.122725.01.28.22.4.2" /> <id nullFlavor="NA " /> <code codeSystem="local" code="PTT" displayName="PARTIAL THROMBOPLASTIN TIME" /> <statusCode code="completed" /> < effectiveTime value="256285940708" /> <value unit="sec" xsi:type="PQ" value="74" /> <interpretationCode codeSystem="local" code="*" /> <referenceRange> <observationRange> <text>23-39</ text> </observationRange> </referenceRange> </ observation> </component> </organizer> </entry> <entry> <organizer moodCode="EVN" classCode="BATTERY"> <templateId root= "05.27.840.1.276279.10..22.4.1" /> <id nullFlavor="NA" /> <code codeSystem="local" code="GLUMON" displayName="GLUCOSE (POC)" /> < statusCode code="completed" /> <component> <observation moodCode= "EVN" classCode="OBS"> <templateId root="840.1.342293.10...4.2 " /> <id nullFlavor="NA" /> <code codeSystem="local" code= "GLUMON" displayName="GLUCOSE (POC)" /> <statusCode code="completed" / > <effectiveTime value="531322198993" /> <value unit="mg/dL" xsi:type="PQ" value="101" /> <interpretationCode codeSystem="local" code="*" /> <referenceRange> <observationRange> <text>70-99</text> </observationRange> </referenceRange> </observation> </component> </organizer> </entry> <entry> < organizer moodCode="EVN" classCode="BATTERY"> <templateId root= "05.27.840.1.059009.10..22.4.1" /> <id nullFlavor="NA" /> <code codeSystem="local" code="PTTH" displayName="PTT HEPARIN PROTOCOLS" /> < statusCode code="completed" /> <component> <observation moodCode= "EVN" classCode="OBS"> <templateId root="840.1.068242.10..22.4.2 " /> <id nullFlavor="NA" /> <code codeSystem="local" code="PTT " displayName="PARTIAL THROMBOPLASTIN TIME" /> <statusCode code= "completed" /> <effectiveTime value="169625157682" /> <value unit="sec" xsi:type="PQ" value="80" /> <interpretationCode codeSystem= "local" code="*" /> <referenceRange> <observationRange> <text>23-39</text> </observationRange> </ referenceRange> </observation> </component> </organizer> </entry > <entry> <organizer moodCode="EVN" classCode="BATTERY"> <templateId root="216.840.1.946065.10..22.4.1" /> <id nullFlavor="NA" /> <code codeSystem="local" code="GLUMON" displayName="GLUCOSE (POC)" /> < statusCode code="completed" /> <component> <observation moodCode= "EVN" classCode="OBS"> <templateId root="216.840.1.952000.10..22.4.2 " /> <id nullFlavor="NA" /> <code codeSystem="local" code= "GLUMON" displayName="GLUCOSE (POC)" /> <statusCode code="completed" / > <effectiveTime value="705008837858" /> <value unit="mg/dL" xsi:type="PQ" value="81" /> <referenceRange> < observationRange> <text>70-99</text> </observationRange > </referenceRange> </observation> </component> </ organizer> </entry> <entry> <organizer moodCode="EVN" classCode="BATTERY"> <templateId root="216.840.1.663923.01.28.22.4.1" /> <id nullFlavor= "NA" /> <code codeSystem="local" code="GLUMON" displayName="GLUCOSE (POC)" /> <statusCode code="completed" /> <component> <observation moodCode="EVN" classCode="OBS"> <templateId root= "05.27.840.1.645011...4.2" /> <id nullFlavor="NA" /> < code codeSystem="local" code="GLUMON" displayName="GLUCOSE (POC)" /> < statusCode code="completed" /> <effectiveTime value="639826250799" /> <value unit="mg/dL" xsi:type="PQ" value="92" /> < referenceRange> <observationRange> <text>70-99</text> </observationRange> </referenceRange> </observation> </component> </organizer> </entry> <entry> <organizer moodCode="EVN " classCode="BATTERY"> <templateId root="840.1.958682.01.28.22.4.1" / > <id nullFlavor="NA" /> <code codeSystem="local" code="GLUMON" displayName="GLUCOSE (POC)" /> <statusCode code="completed" /> < component> <observation moodCode="EVN" classCode="OBS"> < templateId root="05.27.840.1.776311.10...4.2" /> <id nullFlavor="NA " /> <code codeSystem="local" code="GLUMON" displayName="GLUCOSE (POC) " /> <statusCode code="completed" /> <effectiveTime value= "329664657948" /> <value unit="mg/dL" xsi:type="PQ" value="119" /> <interpretationCode codeSystem="local" code="*" /> < referenceRange> <observationRange> <text>70-99</text> </observationRange> </referenceRange> </observation> </component> </organizer> </entry> <entry> <organizer moodCode="EVN " classCode="BATTERY"> <templateId root="05.27.840.1.326264.10..22.4.1" / > <id nullFlavor="NA" /> <code codeSystem="local" code="GLUMON" displayName="GLUCOSE (POC)" /> <statusCode code="completed" /> < component> <observation moodCode="EVN" classCode="OBS"> < templateId root="840.1.109940...4.2" /> <id nullFlavor="NA " /> <code codeSystem="local" code="GLUMON" displayName="GLUCOSE (POC) " /> <statusCode code="completed" /> <effectiveTime value= "541802020111" /> <value unit="mg/dL" xsi:type="PQ" value="95" /> <referenceRange> <observationRange> <text>70-99</ text> </observationRange> </referenceRange> </ observation> </component> </organizer> </entry> <entry> <organizer moodCode="EVN" classCode="BATTERY"> <templateId root= "840.1.597677..22.4.1" /> <id nullFlavor="NA" /> <code codeSystem="local" code="CBC" displayName="CBC" /> <statusCode code= "completed" /> <component> <observation moodCode="EVN" classCode= "OBS"> <templateId root="840.1.205882.10..22.4.2" /> < id nullFlavor="NA" /> <code codeSystem="local" code="MCH" displayName= "MEAN CELL HGB" /> <statusCode code="completed" /> < effectiveTime value="" /> <value unit="pg" xsi:type="PQ" value="26.8" /> <interpretationCode codeSystem="local" code="*" /> <referenceRange> <observationRange> <text>27.0- 33.0</text> </observationRange> </referenceRange> </ observation> </component> <component> <observation moodCode= "EVN" classCode="OBS"> <templateId root="2.16.840.1.737597.10..22.4.2 " /> <id nullFlavor="NA" /> <code codeSystem="local" code= "MCHC" displayName="MEAN CELL HGB CONCENTRATION" /> <statusCode code= "completed" /> <effectiveTime value="" /> <value unit="g/dL" xsi:type="PQ" value="32.3" /> <referenceRange> < observationRange> <text>32.0-37.0</text> </ observationRange> </referenceRange> </observation> </ component> <component> <observation moodCode="EVN" classCode="OBS"> <templateId root="2.16.840.1.642010.10..22.4.2" /> <id nullFlavor="NA" /> <code codeSystem="local" code="MCV" displayName= "MEAN CELL VOLUME" /> <statusCode code="completed" /> < effectiveTime value="" /> <value unit="fl" xsi:type="PQ" value="83.0" /> <referenceRange> <observationRange> <text>80.0-100.0</text> </observationRange> </ referenceRange> </observation> </component> <component> <observation moodCode="EVN" classCode="OBS"> <templateId root= "216.840.1.239211.10..22.4.2" /> <id nullFlavor="NA" /> < code codeSystem="local" code="RBC" displayName="RED BLOOD CELL" /> < statusCode code="completed" /> <effectiveTime value="" /> <value unit="m/cumm" xsi:type="PQ" value="2.76" /> < interpretationCode codeSystem="local" code="*" /> <referenceRange> <observationRange> <text>4.00-6.00</text> </ observationRange> </referenceRange> </observation> </ component> <component> <observation moodCode="EVN" classCode="OBS"> <templateId root="216.840.1.639083...4.2" /> <id nullFlavor="NA" /> <code codeSystem="local" code="RDW" displayName=" RED CELL DISTRIBUTION WIDTH" /> <statusCode code="completed" /> <effectiveTime value="" /> <value unit="%" xsi:type= "PQ" value="15.2" /> <referenceRange> <observationRange> <text>11.0-15.6</text> </observationRange> </ referenceRange> </observation> </component> <component> <observation moodCode="EVN" classCode="OBS"> <templateId root= "216.840.1.229999.10..22.4.2" /> <id nullFlavor="NA" /> < code codeSystem="local" code="WBC" displayName="WHITE BLOOD CELL" /> < statusCode code="completed" /> <effectiveTime value="" /> <value unit="k/cumm" xsi:type="PQ" value="9.6" /> < referenceRange> <observationRange> <text>5.0-10.0</text > </observationRange> </referenceRange> </observation > </component> <component> <observation moodCode="EVN" classCode="OBS"> <templateId root="216.840.1.678228.10.2022.4.2" /> <id nullFlavor="NA" /> <code codeSystem="local" code="HGBT" displayName="HEMOGLOBIN" /> <statusCode code="completed" /> < effectiveTime value="" /> <value unit="gm/dL" xsi:type="PQ " value="7.4" /> <interpretationCode codeSystem="local" code="*" /> <referenceRange> <observationRange> <text>12.0- 16.0</text> </observationRange> </referenceRange> </ observation> </component> <component> <observation moodCode= "EVN" classCode="OBS"> <templateId root="05.27.840.1.155081.22.4.2 " /> <id nullFlavor="NA" /> <code codeSystem="local" code= "HCTT" displayName="HEMATOCRIT" /> <statusCode code="completed" /> <effectiveTime value="" /> <value unit="%" xsi: type="PQ" value="22.9" /> <interpretationCode codeSystem="local" code= "*" /> <referenceRange> <observationRange> < text>37.0-47.0</text> </observationRange> </referenceRange> </observation> </component> <component> <observation moodCode="EVN" classCode="OBS"> <templateId root= "05.27.840.1.623947.01.28.22.4.2" /> <id nullFlavor="NA" /> < code codeSystem="local" code="PLT" displayName="PLATELET COUNT" /> < statusCode code="completed" /> <effectiveTime value="991604735512" /> <value unit="k/cumm" xsi:type="PQ" value="257" /> < referenceRange> <observationRange> <text>150-400</text> </observationRange> </referenceRange> </observation > </component> </organizer> </entry> <entry> <organizer moodCode= "EVN" classCode="BATTERY"> <templateId root="216.840.1.045661.01.28.22.4.1 " /> <id nullFlavor="NA" /> <code codeSystem="local" code="PTTH" displayName="PTT HEPARIN PROTOCOLS" /> <statusCode code="completed" /> <component> <observation moodCode="EVN" classCode="OBS"> < templateId root="216.840.1.287592.10...4.2" /> <id nullFlavor="NA " /> <code codeSystem="local" code="PTT" displayName="PARTIAL THROMBOPLASTIN TIME" /> <statusCode code="completed" /> < effectiveTime value="826872547714" /> <value unit="sec" xsi:type="PQ" value="74" /> <interpretationCode codeSystem="local" code="*" /> <referenceRange> <observationRange> <text>23-39</ text> </observationRange> </referenceRange> </ observation> </component> </organizer> </entry> <entry> <organizer moodCode="EVN" classCode="BATTERY"> <templateId root= "216.840.1.685265.10..4.1" /> <id nullFlavor="NA" /> <code codeSystem="local" code="GLUMON" displayName="GLUCOSE (POC)" /> < statusCode code="completed" /> <component> <observation moodCode= "EVN" classCode="OBS"> <templateId root="05.27.840.1.703550.10..22.4.2 " /> <id nullFlavor="NA" /> <code codeSystem="local" code= "GLUMON" displayName="GLUCOSE (POC)" /> <statusCode code="completed" / > <effectiveTime value="361489983744" /> <value unit="mg/dL" xsi:type="PQ" value="120" /> <interpretationCode codeSystem="local" code="*" /> <referenceRange> <observationRange> <text>70-99</text> </observationRange> </referenceRange> </observation> </component> </organizer> </entry> <entry> < organizer moodCode="EVN" classCode="BATTERY"> <templateId root= "840.1.282201.10..4.1" /> <id nullFlavor="NA" /> <code codeSystem="local" code="PTTH" displayName="PTT HEPARIN PROTOCOLS" /> < statusCode code="completed" /> <component> <observation moodCode= "EVN" classCode="OBS"> <templateId root="05.27.840.1.938975.10..22.4.2 " /> <id nullFlavor="NA" /> <code codeSystem="local" code="PTT " displayName="PARTIAL THROMBOPLASTIN TIME" /> <statusCode code= "completed" /> <effectiveTime value="563688097715" /> <value unit="sec" xsi:type="PQ" value="135" /> <interpretationCode codeSystem= "local" code="" /> <referenceRange> <observationRange> <text>23-39</text> </observationRange> </ referenceRange> </observation> </component> </organizer> </entry > <entry> <organizer moodCode="EVN" classCode="BATTERY"> <templateId root="840.1.115040.10..22.4.1" /> <id nullFlavor="NA" /> <code codeSystem="local" code="GLUMON" displayName="GLUCOSE (POC)" /> < statusCode code="completed" /> <component> <observation moodCode= "EVN" classCode="OBS"> <templateId root="840.1.996237...4.2 " /> <id nullFlavor="NA" /> <code codeSystem="local" code= "GLUMON" displayName="GLUCOSE (POC)" /> <statusCode code="completed" / > <effectiveTime value="569789322566" /> <value unit="mg/dL" xsi:type="PQ" value="90" /> <referenceRange> < observationRange> <text>70-99</text> </observationRange > </referenceRange> </observation> </component> </ organizer> </entry> <entry> <organizer moodCode="EVN" classCode="BATTERY"> <templateId root="840.1.045508.10.22.4.1" /> <id nullFlavor= "NA" /> <code codeSystem="local" code="PTTH" displayName="PTT HEPARIN PROTOCOLS" /> <statusCode code="completed" /> <component> < observation moodCode="EVN" classCode="OBS"> <templateId root= "840.1.342503.10..22.4.2" /> <id nullFlavor="NA" /> < code codeSystem="local" code="PTT" displayName="PARTIAL THROMBOPLASTIN TIME" /> <statusCode code="completed" /> <effectiveTime value= "824275210780" /> <value unit="sec" xsi:type="PQ" value="45" /> <interpretationCode codeSystem="local" code="*" /> <referenceRange> <observationRange> <text>23-39</text> </ observationRange> </referenceRange> </observation> </ component> </organizer> </entry> <entry> <organizer moodCode="EVN" classCode="BATTERY"> <templateId root="216.840.1.023180.10..22.4.1" /> <id nullFlavor="NA" /> <code codeSystem="local" code="GLUMON" displayName="GLUCOSE (POC)" /> <statusCode code="completed" /> < component> <observation moodCode="EVN" classCode="OBS"> < templateId root="216.840.1.369296.10..22.4.2" /> <id nullFlavor="NA " /> <code codeSystem="local" code="GLUMON" displayName="GLUCOSE (POC) " /> <statusCode code="completed" /> <effectiveTime value= "574870973906" /> <value unit="mg/dL" xsi:type="PQ" value="100" /> <interpretationCode codeSystem="local" code="*" /> < referenceRange> <observationRange> <text>70-99</text> </observationRange> </referenceRange> </observation> </component> </organizer> </entry> <entry> <organizer moodCode="EVN " classCode="BATTERY"> <templateId root="216.840.1.751765.10..22.4.1" / > <id nullFlavor="NA" /> <code codeSystem="local" code="PTTH" displayName="PTT HEPARIN PROTOCOLS" /> <statusCode code="completed" /> <component> <observation moodCode="EVN" classCode="OBS"> < templateId root="16.840.1.233211.10..22.4.2" /> <id nullFlavor="NA " /> <code codeSystem="local" code="PTT" displayName="PARTIAL THROMBOPLASTIN TIME" /> <statusCode code="completed" /> < effectiveTime value="949949303139" /> <value unit="sec" xsi:type="PQ" value="95" /> <interpretationCode codeSystem="local" code="*" /> <referenceRange> <observationRange> <text>23-39</ text> </observationRange> </referenceRange> </ observation> </component> </organizer> </entry> <entry> <organizer moodCode="EVN" classCode="BATTERY"> <templateId root= "05.27.840.1.178702.10...4.1" /> <id nullFlavor="NA" /> <code codeSystem="local" code="GLUMON" displayName="GLUCOSE (POC)" /> < statusCode code="completed" /> <component> <observation moodCode= "EVN" classCode="OBS"> <templateId root="05.27.840.1.409260.10..22.4.2 " /> <id nullFlavor="NA" /> <code codeSystem="local" code= "GLUMON" displayName="GLUCOSE (POC)" /> <statusCode code="completed" / > <effectiveTime value="858417906618" /> <value unit="mg/dL" xsi:type="PQ" value="97" /> <referenceRange> < observationRange> <text>70-99</text> </observationRange > </referenceRange> </observation> </component> </ organizer> </entry> <entry> <organizer moodCode="EVN" classCode="BATTERY"> <templateId root="05.27.840.1.563828.10...4.1" /> <id nullFlavor= "NA" /> <code codeSystem="local" code="GLUMON" displayName="GLUCOSE (POC)" /> <statusCode code="completed" /> <component> <observation moodCode="EVN" classCode="OBS"> <templateId root= "840.1.585306.01.28.22.4.2" /> <id nullFlavor="NA" /> < code codeSystem="local" code="GLUMON" displayName="GLUCOSE (POC)" /> < statusCode code="completed" /> <effectiveTime value="621923168623" /> <value unit="mg/dL" xsi:type="PQ" value="79" /> < referenceRange> <observationRange> <text>70-99</text> </observationRange> </referenceRange> </observation> </component> </organizer> </entry> <entry> <organizer moodCode="EVN " classCode="BATTERY"> <templateId root="840.1.513985.01.28.22.4.1" / > <id nullFlavor="NA" /> <code codeSystem="local" code="GLUMON" displayName="GLUCOSE (POC)" /> <statusCode code="completed" /> < component> <observation moodCode="EVN" classCode="OBS"> < templateId root="05.27.840.1.597019.10..22.4.2" /> <id nullFlavor="NA " /> <code codeSystem="local" code="GLUMON" displayName="GLUCOSE (POC) " /> <statusCode code="completed" /> <effectiveTime value= "502582888572" /> <value unit="mg/dL" xsi:type="PQ" value="79" /> <referenceRange> <observationRange> <text>70-99</ text> </observationRange> </referenceRange> </ observation> </component> </organizer> </entry> <entry> <organizer moodCode="EVN" classCode="BATTERY"> <templateId root= "216.840.1.895628.10..22.4.1" /> <id nullFlavor="NA" /> <code codeSystem="local" code="GLUMON" displayName="GLUCOSE (POC)" /> < statusCode code="completed" /> <component> <observation moodCode= "EVN" classCode="OBS"> <templateId root="216.840.1.078577.10..22.4.2 " /> <id nullFlavor="NA" /> <code codeSystem="local" code= "GLUMON" displayName="GLUCOSE (POC)" /> <statusCode code="completed" / > <effectiveTime value="092304748444" /> <value unit="mg/dL" xsi:type="PQ" value="111" /> <interpretationCode codeSystem="local" code="*" /> <referenceRange> <observationRange> <text>70-99</text> </observationRange> </referenceRange> </observation> </component> </organizer> </entry> <entry> < organizer moodCode="EVN" classCode="BATTERY"> <templateId root= "216.840.1.221027.10..22.4.1" /> <id nullFlavor="NA" /> <code codeSystem="local" code="GLUMON" displayName="GLUCOSE (POC)" /> < statusCode code="completed" /> <component> <observation moodCode= "EVN" classCode="OBS"> <templateId root="216.840.1.745267.10.20.22.4.2 " /> <id nullFlavor="NA" /> <code codeSystem="local" code= "GLUMON" displayName="GLUCOSE (POC)" /> <statusCode code="completed" / > <effectiveTime value="899187593958" /> <value unit="mg/dL" xsi:type="PQ" value="128" /> <interpretationCode codeSystem="local" code="*" /> <referenceRange> <observationRange> <text>70-99</text> </observationRange> </referenceRange> </observation> </component> </organizer> </entry> <entry> < organizer moodCode="EVN" classCode="BATTERY"> <templateId root= "216.840.1.951212.10.20.22.4.1" /> <id nullFlavor="NA" /> <code codeSystem="local" code="PTTH" displayName="PTT HEPARIN PROTOCOLS" /> < statusCode code="completed" /> <component> <observation moodCode= "EVN" classCode="OBS"> <templateId root="2.16.840.1.925595.10.20.22.4.2 " /> <id nullFlavor="NA" /> <code codeSystem="local" code="PTT " displayName="PARTIAL THROMBOPLASTIN TIME" /> <statusCode code= "completed" /> <effectiveTime value="758992540431" /> <value unit="sec" xsi:type="PQ" value="78" /> <interpretationCode codeSystem= "local" code="*" /> <referenceRange> <observationRange> <text>23-39</text> </observationRange> </ referenceRange> </observation> </component> </organizer> </entry > <entry> <organizer moodCode="EVN" classCode="BATTERY"> <templateId root="05.27.840.1.583413.10..4.1" /> <id nullFlavor="NA" /> <code codeSystem="local" code="CBC" displayName="CBC" /> <statusCode code= "completed" /> <component> <observation moodCode="EVN" classCode= "OBS"> <templateId root="16.840.1.069141.10..4.2" /> < id nullFlavor="NA" /> <code codeSystem="local" code="MCH" displayName= "MEAN CELL HGB" /> <statusCode code="completed" /> < effectiveTime value="314423972811" /> <value unit="pg" xsi:type="PQ" value="26.0" /> <interpretationCode codeSystem="local" code="*" /> <referenceRange> <observationRange> <text>27.0- 33.0</text> </observationRange> </referenceRange> </ observation> </component> <component> <observation moodCode= "EVN" classCode="OBS"> <templateId root="16.840.1.268049.01.28.22.4.2 " /> <id nullFlavor="NA" /> <code codeSystem="local" code= "MCHC" displayName="MEAN CELL HGB CONCENTRATION" /> <statusCode code= "completed" /> <effectiveTime value="264659954005" /> <value unit="g/dL" xsi:type="PQ" value="31.3" /> <interpretationCode codeSystem="local" code="*" /> <referenceRange> < observationRange> <text>32.0-37.0</text> </ observationRange> </referenceRange> </observation> </ component> <component> <observation moodCode="EVN" classCode="OBS"> <templateId root="05.27.840.1.341052.10.22.4.2" /> <id nullFlavor="NA" /> <code codeSystem="local" code="MCV" displayName= "MEAN CELL VOLUME" /> <statusCode code="completed" /> < effectiveTime value="" /> <value unit="fl" xsi:type="PQ" value="83.2" /> <referenceRange> <observationRange> <text>80.0-100.0</text> </observationRange> </ referenceRange> </observation> </component> <component> <observation moodCode="EVN" classCode="OBS"> <templateId root= "05.27.840.1.602362.01.28.22.4.2" /> <id nullFlavor="NA" /> < code codeSystem="local" code="RBC" displayName="RED BLOOD CELL" /> < statusCode code="completed" /> <effectiveTime value="" /> <value unit="m/cumm" xsi:type="PQ" value="2.50" /> < interpretationCode codeSystem="local" code="*" /> <referenceRange> <observationRange> <text>4.00-6.00</text> </ observationRange> </referenceRange> </observation> </ component> <component> <observation moodCode="EVN" classCode="OBS"> <templateId root="05.27.840.1.260205.22.4.2" /> <id nullFlavor="NA" /> <code codeSystem="local" code="RDW" displayName=" RED CELL DISTRIBUTION WIDTH" /> <statusCode code="completed" /> <effectiveTime value="915754895642" /> <value unit="%" xsi:type= "PQ" value="15.0" /> <referenceRange> <observationRange> <text>11.0-15.6</text> </observationRange> </ referenceRange> </observation> </component> <component> <observation moodCode="EVN" classCode="OBS"> <templateId root= "216.840.1.572881.1022.4.2" /> <id nullFlavor="NA" /> < code codeSystem="local" code="WBC" displayName="WHITE BLOOD CELL" /> < statusCode code="completed" /> <effectiveTime value="276924678756" /> <value unit="k/cumm" xsi:type="PQ" value="7.3" /> < referenceRange> <observationRange> <text>5.0-10.0</text > </observationRange> </referenceRange> </observation > </component> <component> <observation moodCode="EVN" classCode="OBS"> <templateId root="216.840.1.856075...4.2" /> <id nullFlavor="NA" /> <code codeSystem="local" code="HGBT" displayName="HEMOGLOBIN" /> <statusCode code="completed" /> < effectiveTime value="385390528342" /> <value unit="gm/dL" xsi:type="PQ " value="6.5" /> <interpretationCode codeSystem="local" code="*" /> <referenceRange> <observationRange> <text>12.0- 16.0</text> </observationRange> </referenceRange> </ observation> </component> <component> <observation moodCode= "EVN" classCode="OBS"> <templateId root="216.840.1.449376.22.4.2 " /> <id nullFlavor="NA" /> <code codeSystem="local" code= "HCTT" displayName="HEMATOCRIT" /> <statusCode code="completed" /> <effectiveTime value="706350230525" /> <value unit="%" xsi: type="PQ" value="20.8" /> <interpretationCode codeSystem="local" code= "*" /> <referenceRange> <observationRange> < text>37.0-47.0</text> </observationRange> </referenceRange> </observation> </component> <component> <observation moodCode="EVN" classCode="OBS"> <templateId root= "840.1.918519.01.28.224.2" /> <id nullFlavor="NA" /> < code codeSystem="local" code="PLT" displayName="PLATELET COUNT" /> < statusCode code="completed" /> <effectiveTime value="946341891612" /> <value unit="k/cumm" xsi:type="PQ" value="287" /> < referenceRange> <observationRange> <text>150-400</text> </observationRange> </referenceRange> </observation > </component> </organizer> </entry> <entry> <organizer moodCode= "EVN" classCode="BATTERY"> <templateId root="840.1.680225.01.28.22.4.1 " /> <id nullFlavor="NA" /> <code codeSystem="local" code="PTTH" displayName="PTT HEPARIN PROTOCOLS" /> <statusCode code="completed" /> <component> <observation moodCode="EVN" classCode="OBS"> < templateId root="840.1.514706.10.4.2" /> <id nullFlavor="NA " /> <code codeSystem="local" code="PTT" displayName="PARTIAL THROMBOPLASTIN TIME" /> <statusCode code="completed" /> < effectiveTime value="585868374133" /> <value unit="sec" xsi:type="PQ" value="83" /> <interpretationCode codeSystem="local" code="*" /> <referenceRange> <observationRange> <text>23-39</ text> </observationRange> </referenceRange> </ observation> </component> </organizer> </entry> <entry> <organizer moodCode="EVN" classCode="BATTERY"> <templateId root= "840.1.262218.10..22.4.1" /> <id nullFlavor="NA" /> <code codeSystem="local" code="METAB" displayName="METABOLIC PANEL, BASIC" /> < statusCode code="completed" /> <component> <observation moodCode= "EVN" classCode="OBS"> <templateId root="840.1.344011.10..22.4.2 " /> <id nullFlavor="NA" /> <code codeSystem="local" code="K" displayName="POTASSIUM" /> <statusCode code="completed" /> < effectiveTime value="546012489589" /> <value unit="mmol/L" xsi:type="PQ " value="3.5" /> <referenceRange> <observationRange> <text>3.5-5.3</text> </observationRange> </ referenceRange> </observation> </component> <component> <observation moodCode="EVN" classCode="OBS"> <templateId root= "840.1.687217.10.20.22.4.2" /> <id nullFlavor="NA" /> < code codeSystem="local" code="eGFR" displayName="EST GFR (MDRD)" /> < statusCode code="completed" /> <effectiveTime value="" /> <value unit="mL/min" xsi:type="PQ" value="> 60" /> < referenceRange> <observationRange> <text>> 59</text> </observationRange> </referenceRange> </observation > </component> <component> <observation moodCode="EVN" classCode="OBS"> <templateId root="05.27.840.1.240319.10...4.2" /> <id nullFlavor="NA" /> <code codeSystem="local" code="GAP" displayName="ANION GAP" /> <statusCode code="completed" /> < effectiveTime value="" /> <value unit="mmol/L" xsi:type="PQ " value="8" /> <referenceRange> <observationRange> <text>5-15</text> </observationRange> </referenceRange > </observation> </component> <component> <observation moodCode="EVN" classCode="OBS"> <templateId root= "05.27.840.1.242144.10...4.2" /> <id nullFlavor="NA" /> < code codeSystem="local" code="eCrCl" displayName="EST CrCl (CG)" /> < statusCode code="completed" /> <effectiveTime value="" /> <value unit="mL/min" xsi:type="PQ" value="> 60" /> < referenceRange> <observationRange> <text>> 59</text> </observationRange> </referenceRange> </observation > </component> <component> <observation moodCode="EVN" classCode="OBS"> <templateId root="05.27.840.1.759072.10.4.2" /> <id nullFlavor="NA" /> <code codeSystem="local" code="GLU" displayName="GLUCOSE" /> <statusCode code="completed" /> < effectiveTime value="" /> <value unit="mg/dL" xsi:type="PQ " value="101" /> <interpretationCode codeSystem="local" code="*" /> <referenceRange> <observationRange> <text>70-99</ text> </observationRange> </referenceRange> </ observation> </component> <component> <observation moodCode= "EVN" classCode="OBS"> <templateId root="216.840.1.640044.01.28.224.2 " /> <id nullFlavor="NA" /> <code codeSystem="local" code="CA " displayName="CALCIUM" /> <statusCode code="completed" /> < effectiveTime value="" /> <value unit="mg/dL" xsi:type="PQ " value="7.8" /> <interpretationCode codeSystem="local" code="*" /> <referenceRange> <observationRange> <text>8.5- 10.1</text> </observationRange> </referenceRange> </ observation> </component> <component> <observation moodCode= "EVN" classCode="OBS"> <templateId root="216.840.1.400780.01.28.224.2 " /> <id nullFlavor="NA" /> <code codeSystem="local" code="BUN " displayName="BLOOD UREA NITROGEN" /> <statusCode code="completed" /> <effectiveTime value="" /> <value unit="mg/dL" xsi:type="PQ" value="4" /> <interpretationCode codeSystem="local" code= "*" /> <referenceRange> <observationRange> < text>7-20</text> </observationRange> </referenceRange> </observation> </component> <component> <observation moodCode="EVN" classCode="OBS"> <templateId root= "216.840.1.332842.10..22.4.2" /> <id nullFlavor="NA" /> < code codeSystem="local" code="CREAT" displayName="CREATININE" /> < statusCode code="completed" /> <effectiveTime value="696649772724" /> <value unit="mg/dL" xsi:type="PQ" value="0.4" /> < interpretationCode codeSystem="local" code="*" /> <referenceRange> <observationRange> <text>0.6-1.0</text> </ observationRange> </referenceRange> </observation> </ component> <component> <observation moodCode="EVN" classCode="OBS"> <templateId root="16.840.1.436127.10..4.2" /> <id nullFlavor="NA" /> <code codeSystem="local" code="NA" displayName= "SODIUM" /> <statusCode code="completed" /> <effectiveTime value="398724834040" /> <value unit="mmol/L" xsi:type="PQ" value="137" /> <referenceRange> <observationRange> <text> 135-148</text> </observationRange> </referenceRange> </observation> </component> <component> <observation moodCode= "EVN" classCode="OBS"> <templateId root="16.840.1.288793.10..4.2 " /> <id nullFlavor="NA" /> <code codeSystem="local" code="CL " displayName="CHLORIDE" /> <statusCode code="completed" /> < effectiveTime value="641604711132" /> <value unit="mmol/L" xsi:type="PQ " value="104" /> <referenceRange> <observationRange> <text>98-110</text> </observationRange> </ referenceRange> </observation> </component> <component> <observation moodCode="EVN" classCode="OBS"> <templateId root= "216.840.1.424236.10..4.2" /> <id nullFlavor="NA" /> < code codeSystem="local" code="CO2" displayName="CARBON DIOXIDE" /> < statusCode code="completed" /> <effectiveTime value="" /> <value unit="mmol/L" xsi:type="PQ" value="25" /> < referenceRange> <observationRange> <text>21-32</text> </observationRange> </referenceRange> </observation> </component> </organizer> </entry> <entry> <organizer moodCode="EVN " classCode="BATTERY"> <templateId root="216.840.1.247404.10...4.1" / > <id nullFlavor="NA" /> <code codeSystem="local" code="GLUMON" displayName="GLUCOSE (POC)" /> <statusCode code="completed" /> < component> <observation moodCode="EVN" classCode="OBS"> < templateId root="216.840.1.693932.10...4.2" /> <id nullFlavor="NA " /> <code codeSystem="local" code="GLUMON" displayName="GLUCOSE (POC) " /> <statusCode code="completed" /> <effectiveTime value= "588903523027" /> <value unit="mg/dL" xsi:type="PQ" value="92" /> <referenceRange> <observationRange> <text>70-99</ text> </observationRange> </referenceRange> </ observation> </component> </organizer> </entry> <entry> <organizer moodCode="EVN" classCode="BATTERY"> <templateId root= "16.840.1.465200.10..22.4.1" /> <id nullFlavor="NA" /> <code codeSystem="local" code="GLUMON" displayName="GLUCOSE (POC)" /> < statusCode code="completed" /> <component> <observation moodCode= "EVN" classCode="OBS"> <templateId root="05.27.840.1.673854.10..4.2 " /> <id nullFlavor="NA" /> <code codeSystem="local" code= "GLUMON" displayName="GLUCOSE (POC)" /> <statusCode code="completed" / > <effectiveTime value="427227058239" /> <value unit="mg/dL" xsi:type="PQ" value="120" /> <interpretationCode codeSystem="local" code="*" /> <referenceRange> <observationRange> <text>70-99</text> </observationRange> </referenceRange> </observation> </component> </organizer> </entry> <entry> < organizer moodCode="EVN" classCode="BATTERY"> <templateId root= "05.27.840.1.343221.10...4.1" /> <id nullFlavor="NA" /> <code codeSystem="local" code="VANCT" displayName="VANCOMYCIN TROUGH" /> < statusCode code="completed" /> <component> <observation moodCode= "EVN" classCode="OBS"> <templateId root="05.27.840.1.001457.10..22.4.2 " /> <id nullFlavor="NA" /> <code codeSystem="local" code= "VANCT" displayName="VANCOMYCIN TROUGH" /> <statusCode code="completed " /> <effectiveTime value="659000891606" /> <value unit="mcg/ mL" xsi:type="PQ" value="9.3" /> <referenceRange> < observationRange> <text>5.0-20.0</text> </ observationRange> </referenceRange> </observation> </ component> </organizer> </entry> <entry> <organizer moodCode="EVN" classCode="BATTERY"> <templateId root="216.840.1.081062.10..22.4.1" /> <id nullFlavor="NA" /> <code codeSystem="local" code="GLUMON" displayName="GLUCOSE (POC)" /> <statusCode code="completed" /> < component> <observation moodCode="EVN" classCode="OBS"> < templateId root="216.840.1.460341.10..22.4.2" /> <id nullFlavor="NA " /> <code codeSystem="local" code="GLUMON" displayName="GLUCOSE (POC) " /> <statusCode code="completed" /> <effectiveTime value= "753638090011" /> <value unit="mg/dL" xsi:type="PQ" value="93" /> <referenceRange> <observationRange> <text>70-99</ text> </observationRange> </referenceRange> </ observation> </component> </organizer> </entry> <entry> <organizer moodCode="EVN" classCode="BATTERY"> <templateId root= "216.840.1.721130.10..22.4.1" /> <id nullFlavor="NA" /> <code codeSystem="local" code="GLUMON" displayName="GLUCOSE (POC)" /> < statusCode code="completed" /> <component> <observation moodCode= "EVN" classCode="OBS"> <templateId root="05.27.840.1.318455.01.28.22.4.2 " /> <id nullFlavor="NA" /> <code codeSystem="local" code= "GLUMON" displayName="GLUCOSE (POC)" /> <statusCode code="completed" / > <effectiveTime value="682552724351" /> <value unit="mg/dL" xsi:type="PQ" value="120" /> <interpretationCode codeSystem="local" code="*" /> <referenceRange> <observationRange> <text>70-99</text> </observationRange> </referenceRange> </observation> </component> </organizer> </entry> <entry> < organizer moodCode="EVN" classCode="BATTERY"> <templateId root= "840.1.715155.01.28.22.4.1" /> <id nullFlavor="NA" /> <code codeSystem="local" code="CBC" displayName="CBC" /> <statusCode code= "completed" /> <component> <observation moodCode="EVN" classCode= "OBS"> <templateId root="05.27.840.1.531939.01.28.22.4.2" /> < id nullFlavor="NA" /> <code codeSystem="local" code="MCH" displayName= "MEAN CELL HGB" /> <statusCode code="completed" /> < effectiveTime value="977624131634" /> <value unit="pg" xsi:type="PQ" value="26.8" /> <interpretationCode codeSystem="local" code="*" /> <referenceRange> <observationRange> <text>27.0- 33.0</text> </observationRange> </referenceRange> </ observation> </component> <component> <observation moodCode= "EVN" classCode="OBS"> <templateId root="216.840.1.034673.10..4.2 " /> <id nullFlavor="NA" /> <code codeSystem="local" code= "MCHC" displayName="MEAN CELL HGB CONCENTRATION" /> <statusCode code= "completed" /> <effectiveTime value="" /> <value unit="g/dL" xsi:type="PQ" value="32.3" /> <referenceRange> < observationRange> <text>32.0-37.0</text> </ observationRange> </referenceRange> </observation> </ component> <component> <observation moodCode="EVN" classCode="OBS"> <templateId root="05.27.840.1.196926.01.28.22.4.2" /> <id nullFlavor="NA" /> <code codeSystem="local" code="MCV" displayName= "MEAN CELL VOLUME" /> <statusCode code="completed" /> < effectiveTime value="" /> <value unit="fl" xsi:type="PQ" value="83.1" /> <referenceRange> <observationRange> <text>80.0-100.0</text> </observationRange> </ referenceRange> </observation> </component> <component> <observation moodCode="EVN" classCode="OBS"> <templateId root= "05.27.840.1.689979...4.2" /> <id nullFlavor="NA" /> < code codeSystem="local" code="RBC" displayName="RED BLOOD CELL" /> < statusCode code="completed" /> <effectiveTime value="674671891365" /> <value unit="m/cumm" xsi:type="PQ" value="2.72" /> < interpretationCode codeSystem="local" code="*" /> <referenceRange> <observationRange> <text>4.00-6.00</text> </ observationRange> </referenceRange> </observation> </ component> <component> <observation moodCode="EVN" classCode="OBS"> <templateId root="216.840.1.314500.10...4.2" /> <id nullFlavor="NA" /> <code codeSystem="local" code="RDW" displayName=" RED CELL DISTRIBUTION WIDTH" /> <statusCode code="completed" /> <effectiveTime value="966130533577" /> <value unit="%" xsi:type= "PQ" value="15.1" /> <referenceRange> <observationRange> <text>11.0-15.6</text> </observationRange> </ referenceRange> </observation> </component> <component> <observation moodCode="EVN" classCode="OBS"> <templateId root= "16.840.1.918006.10...4.2" /> <id nullFlavor="NA" /> < code codeSystem="local" code="WBC" displayName="WHITE BLOOD CELL" /> < statusCode code="completed" /> <effectiveTime value="299961504944" /> <value unit="k/cumm" xsi:type="PQ" value="7.1" /> < referenceRange> <observationRange> <text>5.0-10.0</text > </observationRange> </referenceRange> </observation > </component> <component> <observation moodCode="EVN" classCode="OBS"> <templateId root="216.840.1.877156.10..4.2" /> <id nullFlavor="NA" /> <code codeSystem="local" code="HGBT" displayName="HEMOGLOBIN" /> <statusCode code="completed" /> < effectiveTime value="579618371192" /> <value unit="gm/dL" xsi:type="PQ " value="7.3" /> <interpretationCode codeSystem="local" code="*" /> <referenceRange> <observationRange> <text>12.0- 16.0</text> </observationRange> </referenceRange> </ observation> </component> <component> <observation moodCode= "EVN" classCode="OBS"> <templateId root="216.840.1.544635.104.2 " /> <id nullFlavor="NA" /> <code codeSystem="local" code= "HCTT" displayName="HEMATOCRIT" /> <statusCode code="completed" /> <effectiveTime value="" /> <value unit="%" xsi: type="PQ" value="22.6" /> <interpretationCode codeSystem="local" code= "*" /> <referenceRange> <observationRange> < text>37.0-47.0</text> </observationRange> </referenceRange> </observation> </component> <component> <observation moodCode="EVN" classCode="OBS"> <templateId root= "16.840.1.870668.10.4.2" /> <id nullFlavor="NA" /> < code codeSystem="local" code="PLT" displayName="PLATELET COUNT" /> < statusCode code="completed" /> <effectiveTime value="681255668882" /> <value unit="k/cumm" xsi:type="PQ" value="320" /> < referenceRange> <observationRange> <text>150-400</text> </observationRange> </referenceRange> </observation > </component> </organizer> </entry> <entry> <organizer moodCode= "EVN" classCode="BATTERY"> <templateId root="05.27.840.1.979394.10...4.1 " /> <id nullFlavor="NA" /> <code codeSystem="local" code="PTTH" displayName="PTT HEPARIN PROTOCOLS" /> <statusCode code="completed" /> <component> <observation moodCode="EVN" classCode="OBS"> < templateId root="840.1.177054.01.28.22.4.2" /> <id nullFlavor="NA " /> <code codeSystem="local" code="PTT" displayName="PARTIAL THROMBOPLASTIN TIME" /> <statusCode code="completed" /> < effectiveTime value="124955453911" /> <value unit="sec" xsi:type="PQ" value="102" /> <interpretationCode codeSystem="local" code="*" /> <referenceRange> <observationRange> <text>23-39</ text> </observationRange> </referenceRange> </ observation> </component> </organizer> </entry> <entry> <organizer moodCode="EVN" classCode="BATTERY"> <templateId root= "840.1.642660.01.28.22.4.1" /> <id nullFlavor="NA" /> <code codeSystem="local" code="GLUMON" displayName="GLUCOSE (POC)" /> < statusCode code="completed" /> <component> <observation moodCode= "EVN" classCode="OBS"> <templateId root="05.27.840.1.687680.10...4.2 " /> <id nullFlavor="NA" /> <code codeSystem="local" code= "GLUMON" displayName="GLUCOSE (POC)" /> <statusCode code="completed" / > <effectiveTime value="750214978058" /> <value unit="mg/dL" xsi:type="PQ" value="106" /> <interpretationCode codeSystem="local" code="*" /> <referenceRange> <observationRange> <text>70-99</text> </observationRange> </referenceRange> </observation> </component> </organizer> </entry> <entry> < organizer moodCode="EVN" classCode="BATTERY"> <templateId root= "16.840.1.141349.10..22.4.1" /> <id nullFlavor="NA" /> <code codeSystem="local" code="GLUMON" displayName="GLUCOSE (POC)" /> < statusCode code="completed" /> <component> <observation moodCode= "EVN" classCode="OBS"> <templateId root="16.840.1.488706.10..22.4.2 " /> <id nullFlavor="NA" /> <code codeSystem="local" code= "GLUMON" displayName="GLUCOSE (POC)" /> <statusCode code="completed" / > <effectiveTime value="634136076073" /> <value unit="mg/dL" xsi:type="PQ" value="103" /> <interpretationCode codeSystem="local" code="*" /> <referenceRange> <observationRange> <text>70-99</text> </observationRange> </referenceRange> </observation> </component> </organizer> </entry> <entry> < organizer moodCode="EVN" classCode="BATTERY"> <templateId root= "216.840.1.134428.10.20.22.4.1" /> <id nullFlavor="NA" /> <code codeSystem="local" code="PTTH" displayName="PTT HEPARIN PROTOCOLS" /> < statusCode code="completed" /> <component> <observation moodCode= "EVN" classCode="OBS"> <templateId root="216.840.1.720302.10..22.4.2 " /> <id nullFlavor="NA" /> <code codeSystem="local" code="PTT " displayName="PARTIAL THROMBOPLASTIN TIME" /> <statusCode code= "completed" /> <effectiveTime value="591581255961" /> <value unit="sec" xsi:type="PQ" value="61" /> <interpretationCode codeSystem= "local" code="*" /> <referenceRange> <observationRange> <text>23-39</text> </observationRange> </ referenceRange> </observation> </component> </organizer> </entry > <entry> <organizer moodCode="EVN" classCode="BATTERY"> <templateId root="05.27.840.1.327244.10..22.4.1" /> <id nullFlavor="NA" /> <code codeSystem="local" code="GLUMON" displayName="GLUCOSE (POC)" /> < statusCode code="completed" /> <component> <observation moodCode= "EVN" classCode="OBS"> <templateId root="05.27.840.1.966210.10..22.4.2 " /> <id nullFlavor="NA" /> <code codeSystem="local" code= "GLUMON" displayName="GLUCOSE (POC)" /> <statusCode code="completed" / > <effectiveTime value="597240764484" /> <value unit="mg/dL" xsi:type="PQ" value="81" /> <referenceRange> < observationRange> <text>70-99</text> </observationRange > </referenceRange> </observation> </component> </ organizer> </entry> <entry> <organizer moodCode="EVN" classCode="BATTERY"> <templateId root="05.27.840.1.512244.10..4.1" /> <id nullFlavor= "NA" /> <code codeSystem="local" code="PTTH" displayName="PTT HEPARIN PROTOCOLS" /> <statusCode code="completed" /> <component> < observation moodCode="EVN" classCode="OBS"> <templateId root= "840.1.971373.01.28.22.4.2" /> <id nullFlavor="NA" /> < code codeSystem="local" code="PTT" displayName="PARTIAL THROMBOPLASTIN TIME" /> <statusCode code="completed" /> <effectiveTime value= "907766499898" /> <value unit="sec" xsi:type="PQ" value="67" /> <interpretationCode codeSystem="local" code="*" /> <referenceRange> <observationRange> <text>23-39</text> </ observationRange> </referenceRange> </observation> </ component> </organizer> </entry> <entry> <organizer moodCode="EVN" classCode="BATTERY"> <templateId root="840.1.000059.01.28.22.4.1" /> <id nullFlavor="NA" /> <code codeSystem="local" code="GLUMON" displayName="GLUCOSE (POC)" /> <statusCode code="completed" /> < component> <observation moodCode="EVN" classCode="OBS"> < templateId root="05.27.840.1.293572.10...4.2" /> <id nullFlavor="NA " /> <code codeSystem="local" code="GLUMON" displayName="GLUCOSE (POC) " /> <statusCode code="completed" /> <effectiveTime value= "189224808772" /> <value unit="mg/dL" xsi:type="PQ" value="100" /> <interpretationCode codeSystem="local" code="*" /> < referenceRange> <observationRange> <text>70-99</text> </observationRange> </referenceRange> </observation> </component> </organizer> </entry> <entry> <organizer moodCode="EVN " classCode="BATTERY"> <templateId root="216.840.1.457295.10..22.4.1" / > <id nullFlavor="NA" /> <code codeSystem="local" code="PTTH" displayName="PTT HEPARIN PROTOCOLS" /> <statusCode code="completed" /> <component> <observation moodCode="EVN" classCode="OBS"> < templateId root="216.840.1.977718.10..22.4.2" /> <id nullFlavor="NA " /> <code codeSystem="local" code="PTT" displayName="PARTIAL THROMBOPLASTIN TIME" /> <statusCode code="completed" /> < effectiveTime value="132931557875" /> <value unit="sec" xsi:type="PQ" value="40" /> <interpretationCode codeSystem="local" code="*" /> <referenceRange> <observationRange> <text>23-39</ text> </observationRange> </referenceRange> </ observation> </component> </organizer> </entry> <entry> <organizer moodCode="EVN" classCode="BATTERY"> <templateId root= "216.840.1.848138.10..22.4.1" /> <id nullFlavor="NA" /> <code codeSystem="local" code="GLUMON" displayName="GLUCOSE (POC)" /> < statusCode code="completed" /> <component> <observation moodCode= "EVN" classCode="OBS"> <templateId root="05.27.840.1.140312.10...4.2 " /> <id nullFlavor="NA" /> <code codeSystem="local" code= "GLUMON" displayName="GLUCOSE (POC)" /> <statusCode code="completed" / > <effectiveTime value="507335149968" /> <value unit="mg/dL" xsi:type="PQ" value="115" /> <interpretationCode codeSystem="local" code="*" /> <referenceRange> <observationRange> <text>70-99</text> </observationRange> </referenceRange> </observation> </component> </organizer> </entry> <entry> < organizer moodCode="EVN" classCode="BATTERY"> <templateId root= "840.1.135113.10...4.1" /> <id nullFlavor="NA" /> <code codeSystem="local" code="PTTH" displayName="PTT HEPARIN PROTOCOLS" /> < statusCode code="completed" /> <component> <observation moodCode= "EVN" classCode="OBS"> <templateId root="05.27.840.1.957209.10..22.4.2 " /> <id nullFlavor="NA" /> <code codeSystem="local" code="PTT " displayName="PARTIAL THROMBOPLASTIN TIME" /> <statusCode code= "completed" /> <effectiveTime value="626145070654" /> <value unit="sec" xsi:type="PQ" value="46" /> <interpretationCode codeSystem= "local" code="*" /> <referenceRange> <observationRange> <text>23-39</text> </observationRange> </ referenceRange> </observation> </component> </organizer> </entry > <entry> <organizer moodCode="EVN" classCode="BATTERY"> <templateId root="05.27.840.1.156504.10..22.4.1" /> <id nullFlavor="NA" /> <code codeSystem="local" code="GLUMON" displayName="GLUCOSE (POC)" /> < statusCode code="completed" /> <component> <observation moodCode= "EVN" classCode="OBS"> <templateId root="840.1.982681.01.28.22.4.2 " /> <id nullFlavor="NA" /> <code codeSystem="local" code= "GLUMON" displayName="GLUCOSE (POC)" /> <statusCode code="completed" / > <effectiveTime value="779086201398" /> <value unit="mg/dL" xsi:type="PQ" value="99" /> <referenceRange> < observationRange> <text>70-99</text> </observationRange > </referenceRange> </observation> </component> </ organizer> </entry> <entry> <organizer moodCode="EVN" classCode="BATTERY"> <templateId root="840.1.869200.01.28.22.4.1" /> <id nullFlavor= "NA" /> <code codeSystem="local" code="GLUMON" displayName="GLUCOSE (POC)" /> <statusCode code="completed" /> <component> <observation moodCode="EVN" classCode="OBS"> <templateId root= "840.1.374668.10..22.4.2" /> <id nullFlavor="NA" /> < code codeSystem="local" code="GLUMON" displayName="GLUCOSE (POC)" /> < statusCode code="completed" /> <effectiveTime value="215341923611" /> <value unit="mg/dL" xsi:type="PQ" value="96" /> < referenceRange> <observationRange> <text>70-99</text> </observationRange> </referenceRange> </observation> </component> </organizer> </entry> <entry> <organizer moodCode="EVN " classCode="BATTERY"> <templateId root="216.840.1.650269.10.20.22.4.1" / > <id nullFlavor="NA" /> <code codeSystem="local" code="PTTH" displayName="PTT HEPARIN PROTOCOLS" /> <statusCode code="completed" /> <component> <observation moodCode="EVN" classCode="OBS"> < templateId root="216.840.1.548823.10.20.22.4.2" /> <id nullFlavor="NA " /> <code codeSystem="local" code="PTT" displayName="PARTIAL THROMBOPLASTIN TIME" /> <statusCode code="completed" /> < effectiveTime value="597733500006" /> <value unit="sec" xsi:type="PQ" value="42" /> <interpretationCode codeSystem="local" code="*" /> <referenceRange> <observationRange> <text>23-39</ text> </observationRange> </referenceRange> </ observation> </component> </organizer> </entry> <entry> <organizer moodCode="EVN" classCode="BATTERY"> <templateId root= "216.840.1.848421.10.20.22.4.1" /> <id nullFlavor="NA" /> <code codeSystem="local" code="CREATT" displayName="CREATININE" /> <statusCode code="completed" /> <component> <observation moodCode="EVN" classCode="OBS"> <templateId root="216.840.1.348547.10..4.2" /> <id nullFlavor="NA" /> <code codeSystem="local" code="eGFR" displayName="EST GFR (MDRD)" /> <statusCode code="completed" /> <effectiveTime value="" /> <value unit="mL/min" xsi:type ="PQ" value="> 60" /> <referenceRange> <observationRange > <text>> 59</text> </observationRange> </ referenceRange> </observation> </component> <component> <observation moodCode="EVN" classCode="OBS"> <templateId root= "16.840.1.270460.01.28.22.4.2" /> <id nullFlavor="NA" /> < code codeSystem="local" code="CREAT" displayName="CREATININE" /> < statusCode code="completed" /> <effectiveTime value="344444782637" /> <value unit="mg/dL" xsi:type="PQ" value="0.5" /> < interpretationCode codeSystem="local" code="*" /> <referenceRange> <observationRange> <text>0.6-1.0</text> </ observationRange> </referenceRange> </observation> </ component> </organizer> </entry> <entry> <organizer moodCode="EVN" classCode="BATTERY"> <templateId root="216.840.1.577590.10.4.1" /> <id nullFlavor="NA" /> <code codeSystem="local" code="GLUMON" displayName="GLUCOSE (POC)" /> <statusCode code="completed" /> < component> <observation moodCode="EVN" classCode="OBS"> < templateId root="2.16.840.1.906165.10.20.22.4.2" /> <id nullFlavor="NA " /> <code codeSystem="local" code="GLUMON" displayName="GLUCOSE (POC) " /> <statusCode code="completed" /> <effectiveTime value= "220420470869" /> <value unit="mg/dL" xsi:type="PQ" value="98" /> <referenceRange> <observationRange> <text>70-99</ text> </observationRange> </referenceRange> </ observation> </component> </organizer> </entry> <entry> <organizer moodCode="EVN" classCode="BATTERY"> <templateId root= "2.16.840.1.821845.10.20.22.4.1" /> <id nullFlavor="NA" /> <code codeSystem="local" code="PTTH" displayName="PTT HEPARIN PROTOCOLS" /> < statusCode code="completed" /> <component> <observation moodCode= "EVN" classCode="OBS"> <templateId root="2.16.840.1.748568.10.20.22.4.2 " /> <id nullFlavor="NA" /> <code codeSystem="local" code="PTT " displayName="PARTIAL THROMBOPLASTIN TIME" /> <statusCode code= "completed" /> <effectiveTime value="596999578618" /> <value unit="sec" xsi:type="PQ" value="142" /> <interpretationCode codeSystem= "local" code="" /> <referenceRange> <observationRange> <text>23-39</text> </observationRange> </ referenceRange> </observation> </component> </organizer> </entry > <entry> <organizer moodCode="EVN" classCode="BATTERY"> <templateId root="16.840.1.301352.10..22.4.1" /> <id nullFlavor="NA" /> <code codeSystem="local" code="GLUMON" displayName="GLUCOSE (POC)" /> < statusCode code="completed" /> <component> <observation moodCode= "EVN" classCode="OBS"> <templateId root="840.1.751168...4.2 " /> <id nullFlavor="NA" /> <code codeSystem="local" code= "GLUMON" displayName="GLUCOSE (POC)" /> <statusCode code="completed" / > <effectiveTime value="389307045556" /> <value unit="mg/dL" xsi:type="PQ" value="93" /> <referenceRange> < observationRange> <text>70-99</text> </observationRange > </referenceRange> </observation> </component> </ organizer> </entry> <entry> <organizer moodCode="EVN" classCode="BATTERY"> <templateId root="840.1.064393...4.1" /> <id nullFlavor= "NA" /> <code codeSystem="local" code="METAB" displayName="METABOLIC PANEL , BASIC" /> <statusCode code="completed" /> <component> < observation moodCode="EVN" classCode="OBS"> <templateId root= "05.27.840.1.829139.10...4.2" /> <id nullFlavor="NA" /> < code codeSystem="local" code="K" displayName="POTASSIUM" /> < statusCode code="completed" /> <effectiveTime value="555158534051" /> <value unit="mmol/L" xsi:type="PQ" value="3.9" /> < referenceRange> <observationRange> <text>3.5-5.3</text> </observationRange> </referenceRange> </observation > </component> <component> <observation moodCode="EVN" classCode="OBS"> <templateId root="216.840.1.322683.10..22.4.2" /> <id nullFlavor="NA" /> <code codeSystem="local" code="eGFR" displayName="EST GFR (MDRD)" /> <statusCode code="completed" /> <effectiveTime value="024072847257" /> <value unit="mL/min" xsi:type ="PQ" value="> 60" /> <referenceRange> <observationRange > <text>> 59</text> </observationRange> </ referenceRange> </observation> </component> <component> <observation moodCode="EVN" classCode="OBS"> <templateId root= "16.840.1.405325.10..4.2" /> <id nullFlavor="NA" /> < code codeSystem="local" code="GAP" displayName="ANION GAP" /> < statusCode code="completed" /> <effectiveTime value="284899961250" /> <value unit="mmol/L" xsi:type="PQ" value="6" /> < referenceRange> <observationRange> <text>5-15</text> </observationRange> </referenceRange> </observation> </component> <component> <observation moodCode="EVN" classCode= "OBS"> <templateId root="216.840.1.714910.10..22.4.2" /> < id nullFlavor="NA" /> <code codeSystem="local" code="eCrCl" displayName ="EST CrCl (CG)" /> <statusCode code="completed" /> < effectiveTime value="833370025131" /> <value unit="mL/min" xsi:type="PQ " value="> 60" /> <referenceRange> <observationRange> <text>> 59</text> </observationRange> </ referenceRange> </observation> </component> <component> <observation moodCode="EVN" classCode="OBS"> <templateId root= "216.840.1.133606.10.20.22.4.2" /> <id nullFlavor="NA" /> < code codeSystem="local" code="GLU" displayName="GLUCOSE" /> < statusCode code="completed" /> <effectiveTime value="914417632195" /> <value unit="mg/dL" xsi:type="PQ" value="90" /> < referenceRange> <observationRange> <text>70-99</text> </observationRange> </referenceRange> </observation> </component> <component> <observation moodCode="EVN" classCode= "OBS"> <templateId root="216.840.1.413361.10.20.22.4.2" /> < id nullFlavor="NA" /> <code codeSystem="local" code="CA" displayName= "CALCIUM" /> <statusCode code="completed" /> <effectiveTime value="516316948593" /> <value unit="mg/dL" xsi:type="PQ" value="8.3" / > <interpretationCode codeSystem="local" code="*" /> < referenceRange> <observationRange> <text>8.5-10.1</text > </observationRange> </referenceRange> </observation > </component> <component> <observation moodCode="EVN" classCode="OBS"> <templateId root="05.27.840.1.808482.10.20.22.4.2" /> <id nullFlavor="NA" /> <code codeSystem="local" code="BUN" displayName="BLOOD UREA NITROGEN" /> <statusCode code="completed" /> <effectiveTime value="540628570553" /> <value unit="mg/dL" xsi: type="PQ" value="3" /> <interpretationCode codeSystem="local" code="*" /> <referenceRange> <observationRange> <text>7- 20</text> </observationRange> </referenceRange> </ observation> </component> <component> <observation moodCode= "EVN" classCode="OBS"> <templateId root="840.1.811459.10..4.2 " /> <id nullFlavor="NA" /> <code codeSystem="local" code= "CREAT" displayName="CREATININE" /> <statusCode code="completed" /> <effectiveTime value="275277245630" /> <value unit="mg/dL" xsi: type="PQ" value="0.5" /> <interpretationCode codeSystem="local" code="* " /> <referenceRange> <observationRange> <text> 0.6-1.0</text> </observationRange> </referenceRange> </observation> </component> <component> <observation moodCode= "EVN" classCode="OBS"> <templateId root="05.27.840.1.027984.10..22.4.2 " /> <id nullFlavor="NA" /> <code codeSystem="local" code="NA " displayName="SODIUM" /> <statusCode code="completed" /> < effectiveTime value="986764695260" /> <value unit="mmol/L" xsi:type="PQ " value="137" /> <referenceRange> <observationRange> <text>135-148</text> </observationRange> </ referenceRange> </observation> </component> <component> <observation moodCode="EVN" classCode="OBS"> <templateId root= "216.840.1.699605.10.20.22.4.2" /> <id nullFlavor="NA" /> < code codeSystem="local" code="CL" displayName="CHLORIDE" /> < statusCode code="completed" /> <effectiveTime value="175520933175" /> <value unit="mmol/L" xsi:type="PQ" value="103" /> < referenceRange> <observationRange> <text>98-110</text> </observationRange> </referenceRange> </observation> </component> <component> <observation moodCode="EVN" classCode ="OBS"> <templateId root="05.27.840.1.960979.10...4.2" /> < id nullFlavor="NA" /> <code codeSystem="local" code="CO2" displayName= "CARBON DIOXIDE" /> <statusCode code="completed" /> < effectiveTime value="069076508461" /> <value unit="mmol/L" xsi:type="PQ " value="28" /> <referenceRange> <observationRange> <text>21-32</text> </observationRange> </ referenceRange> </observation> </component> </organizer> </entry > <entry> <organizer moodCode="EVN" classCode="BATTERY"> <templateId root="16.840.1.601294.10...4.1" /> <id nullFlavor="NA" /> <code codeSystem="local" code="CBC" displayName="CBC" /> <statusCode code= "completed" /> <component> <observation moodCode="EVN" classCode= "OBS"> <templateId root="16.840.1.295253.10.22.4.2" /> < id nullFlavor="NA" /> <code codeSystem="local" code="CBCCOM" displayName="COMMENT" /> <statusCode code="completed" /> < effectiveTime value="561441582520" /> <value unit="" xsi:type="PQ" value="REVIEWED" /> <referenceRange> <observationRange> <text /> </observationRange> </referenceRange> </observation> </component> <component> <observation moodCode="EVN" classCode="OBS"> <templateId root= "05.27.840.1.827217.1022.4.2" /> <id nullFlavor="NA" /> < code codeSystem="local" code="MCH" displayName="MEAN CELL HGB" /> < statusCode code="completed" /> <effectiveTime value="827098126706" /> <value unit="pg" xsi:type="PQ" value="26.4" /> < interpretationCode codeSystem="local" code="*" /> <referenceRange> <observationRange> <text>27.0-33.0</text> </ observationRange> </referenceRange> </observation> </ component> <component> <observation moodCode="EVN" classCode="OBS"> <templateId root="05.27.840.1.232766.10.2022.4.2" /> <id nullFlavor="NA" /> <code codeSystem="local" code="MCHC" displayName= "MEAN CELL HGB CONCENTRATION" /> <statusCode code="completed" /> <effectiveTime value="225349472536" /> <value unit="g/dL" xsi:type= "PQ" value="31.4" /> <interpretationCode codeSystem="local" code="*" / > <referenceRange> <observationRange> <text> 32.0-37.0</text> </observationRange> </referenceRange> </observation> </component> <component> <observation moodCode="EVN" classCode="OBS"> <templateId root= "05.27.840.1.592599.1022.4.2" /> <id nullFlavor="NA" /> < code codeSystem="local" code="MCV" displayName="MEAN CELL VOLUME" /> < statusCode code="completed" /> <effectiveTime value="937992848288" /> <value unit="fl" xsi:type="PQ" value="84.2" /> <referenceRange > <observationRange> <text>80.0-100.0</text> </observationRange> </referenceRange> </observation> </ component> <component> <observation moodCode="EVN" classCode="OBS"> <templateId root="05.27.840.1.224999.01.28.22.4.2" /> <id nullFlavor="NA" /> <code codeSystem="local" code="RBC" displayName=" RED BLOOD CELL" /> <statusCode code="completed" /> < effectiveTime value="447359807502" /> <value unit="m/cumm" xsi:type="PQ " value="3.03" /> <interpretationCode codeSystem="local" code="*" /> <referenceRange> <observationRange> <text>4.00- 6.00</text> </observationRange> </referenceRange> </ observation> </component> <component> <observation moodCode= "EVN" classCode="OBS"> <templateId root="05.27.840.1.446867...22.4.2 " /> <id nullFlavor="NA" /> <code codeSystem="local" code="RDW " displayName="RED CELL DISTRIBUTION WIDTH" /> <statusCode code= "completed" /> <effectiveTime value="608145054555" /> <value unit="%" xsi:type="PQ" value="15.5" /> <referenceRange> <observationRange> <text>11.0-15.6</text> </ observationRange> </referenceRange> </observation> </ component> <component> <observation moodCode="EVN" classCode="OBS"> <templateId root="2.16.840.1.047448....4.2" /> <id nullFlavor="NA" /> <code codeSystem="local" code="WBC" displayName= "WHITE BLOOD CELL" /> <statusCode code="completed" /> < effectiveTime value="862181442870" /> <value unit="k/cumm" xsi:type="PQ " value="8.8" /> <referenceRange> <observationRange> <text>5.0-10.0</text> </observationRange> </ referenceRange> </observation> </component> <component> <observation moodCode="EVN" classCode="OBS"> <templateId root= "2.16.840.1.696180....4.2" /> <id nullFlavor="NA" /> < code codeSystem="local" code="HGBT" displayName="HEMOGLOBIN" /> < statusCode code="completed" /> <effectiveTime value="123942516450" /> <value unit="gm/dL" xsi:type="PQ" value="8.0" /> < interpretationCode codeSystem="local" code="*" /> <referenceRange> <observationRange> <text>12.0-16.0</text> </ observationRange> </referenceRange> </observation> </ component> <component> <observation moodCode="EVN" classCode="OBS"> <templateId root="216.840.1.485868.10..22.4.2" /> <id nullFlavor="NA" /> <code codeSystem="local" code="HCTT" displayName= "HEMATOCRIT" /> <statusCode code="completed" /> < effectiveTime value="197177148750" /> <value unit="%" xsi:type="PQ " value="25.5" /> <interpretationCode codeSystem="local" code="*" /> <referenceRange> <observationRange> <text>37.0- 47.0</text> </observationRange> </referenceRange> </ observation> </component> <component> <observation moodCode= "EVN" classCode="OBS"> <templateId root="216.840.1.483130.10..4.2 " /> <id nullFlavor="NA" /> <code codeSystem="local" code="PLT " displayName="PLATELET COUNT" /> <statusCode code="completed" /> <effectiveTime value="491428649007" /> <value unit="k/cumm" xsi: type="PQ" value="158" /> <referenceRange> <observationRange > <text>150-400</text> </observationRange> </ referenceRange> </observation> </component> </organizer> </entry > <entry> <organizer moodCode="EVN" classCode="BATTERY"> <templateId root="2.16.840.1.655737.10..22.4.1" /> <id nullFlavor="NA" /> <code codeSystem="local" code="GLUMON" displayName="GLUCOSE (POC)" /> < statusCode code="completed" /> <component> <observation moodCode= "EVN" classCode="OBS"> <templateId root="2.16.840.1.747171.10.20.22.4.2 " /> <id nullFlavor="NA" /> <code codeSystem="local" code= "GLUMON" displayName="GLUCOSE (POC)" /> <statusCode code="completed" / > <effectiveTime value="451752611036" /> <value unit="mg/dL" xsi:type="PQ" value="101" /> <interpretationCode codeSystem="local" code="*" /> <referenceRange> <observationRange> <text>70-99</text> </observationRange> </referenceRange> </observation> </component> </organizer> </entry> <entry> < organizer moodCode="EVN" classCode="BATTERY"> <templateId root= "2.16.840.1.557739.10.20.22.4.1" /> <id nullFlavor="NA" /> <code codeSystem="local" code="PTTH" displayName="PTT HEPARIN PROTOCOLS" /> < statusCode code="completed" /> <component> <observation moodCode= "EVN" classCode="OBS"> <templateId root="2.16.840.1.134975.10.20.22.4.2 " /> <id nullFlavor="NA" /> <code codeSystem="local" code="PTT " displayName="PARTIAL THROMBOPLASTIN TIME" /> <statusCode code= "completed" /> <effectiveTime value="402068277687" /> <value unit="sec" xsi:type="PQ" value="92" /> <interpretationCode codeSystem= "local" code="*" /> <referenceRange> <observationRange> <text>23-39</text> </observationRange> </ referenceRange> </observation> </component> </organizer> </entry > <entry> <organizer moodCode="EVN" classCode="BATTERY"> <templateId root="05.27.840.1.978873.01.28.22.4.1" /> <id nullFlavor="NA" /> <code codeSystem="local" code="GLUMON" displayName="GLUCOSE (POC)" /> < statusCode code="completed" /> <component> <observation moodCode= "EVN" classCode="OBS"> <templateId root="840.1.163761.01.28.22.4.2 " /> <id nullFlavor="NA" /> <code codeSystem="local" code= "GLUMON" displayName="GLUCOSE (POC)" /> <statusCode code="completed" / > <effectiveTime value="721169586078" /> <value unit="mg/dL" xsi:type="PQ" value="102" /> <interpretationCode codeSystem="local" code="*" /> <referenceRange> <observationRange> <text>70-99</text> </observationRange> </referenceRange> </observation> </component> </organizer> </entry> <entry> < organizer moodCode="EVN" classCode="BATTERY"> <templateId root= "840.1.822936.01.28.22.4.1" /> <id nullFlavor="NA" /> <code codeSystem="local" code="PTTH" displayName="PTT HEPARIN PROTOCOLS" /> < statusCode code="completed" /> <component> <observation moodCode= "EVN" classCode="OBS"> <templateId root="840.1.008209.01.28.22.4.2 " /> <id nullFlavor="NA" /> <code codeSystem="local" code="PTT " displayName="PARTIAL THROMBOPLASTIN TIME" /> <statusCode code= "completed" /> <effectiveTime value="721536968804" /> <value unit="sec" xsi:type="PQ" value="98" /> <interpretationCode codeSystem= "local" code="*" /> <referenceRange> <observationRange> <text>23-39</text> </observationRange> </ referenceRange> </observation> </component> </organizer> </entry > <entry> <organizer moodCode="EVN" classCode="BATTERY"> <templateId root="216.840.1.636451.10..22.4.1" /> <id nullFlavor="NA" /> <code codeSystem="local" code="GLUMON" displayName="GLUCOSE (POC)" /> < statusCode code="completed" /> <component> <observation moodCode= "EVN" classCode="OBS"> <templateId root="216.840.1.290132.10..22.4.2 " /> <id nullFlavor="NA" /> <code codeSystem="local" code= "GLUMON" displayName="GLUCOSE (POC)" /> <statusCode code="completed" / > <effectiveTime value="577570717743" /> <value unit="mg/dL" xsi:type="PQ" value="97" /> <referenceRange> < observationRange> <text>70-99</text> </observationRange > </referenceRange> </observation> </component> </ organizer> </entry> <entry> <organizer moodCode="EVN" classCode="BATTERY"> <templateId root="216.840.1.378102.10..22.4.1" /> <id nullFlavor= "NA" /> <code codeSystem="local" code="GLUMON" displayName="GLUCOSE (POC)" /> <statusCode code="completed" /> <component> <observation moodCode="EVN" classCode="OBS"> <templateId root= "2.16.840.1.415231.10.20.22.4.2" /> <id nullFlavor="NA" /> < code codeSystem="local" code="GLUMON" displayName="GLUCOSE (POC)" /> < statusCode code="completed" /> <effectiveTime value="468452846293" /> <value unit="mg/dL" xsi:type="PQ" value="88" /> < referenceRange> <observationRange> <text>70-99</text> </observationRange> </referenceRange> </observation> </component> </organizer> </entry> <entry> <organizer moodCode="EVN " classCode="BATTERY"> <templateId root="2.16.840.1.173421.10.20.22.4.1" / > <id nullFlavor="NA" /> <code codeSystem="local" code="GLUMON" displayName="GLUCOSE (POC)" /> <statusCode code="completed" /> < component> <observation moodCode="EVN" classCode="OBS"> < templateId root="2.16.840.1.114879.10.20.22.4.2" /> <id nullFlavor="NA " /> <code codeSystem="local" code="GLUMON" displayName="GLUCOSE (POC) " /> <statusCode code="completed" /> <effectiveTime value= "812530981629" /> <value unit="mg/dL" xsi:type="PQ" value="97" /> <referenceRange> <observationRange> <text>70-99</ text> </observationRange> </referenceRange> </ observation> </component> </organizer> </entry> <entry> <organizer moodCode="EVN" classCode="BATTERY"> <templateId root= "840.1.279957.10..4.1" /> <id nullFlavor="NA" /> <code codeSystem="local" code="PTT" displayName="PARTIAL THROMBOPLASTIN TIME" /> <statusCode code="completed" /> <component> <observation moodCode= "EVN" classCode="OBS"> <templateId root="840.1.896861.01.28.22.4.2 " /> <id nullFlavor="NA" /> <code codeSystem="local" code="PTT " displayName="PARTIAL THROMBOPLASTIN TIME" /> <statusCode code= "completed" /> <effectiveTime value="308022906492" /> <value unit="sec" xsi:type="PQ" value="40" /> <interpretationCode codeSystem= "local" code="*" /> <referenceRange> <observationRange> <text>23-39</text> </observationRange> </ referenceRange> </observation> </component> </organizer> </entry > <entry> <organizer moodCode="EVN" classCode="BATTERY"> <templateId root="840.1.175627.01.28.22.4.1" /> <id nullFlavor="NA" /> <code codeSystem="local" code="PT" displayName="PROTHROMBIN TIME WITH INR" /> < statusCode code="completed" /> <component> <observation moodCode= "EVN" classCode="OBS"> <templateId root="05.27.840.1.855237.10..4.2 " /> <id nullFlavor="NA" /> <code codeSystem="local" code= "INRX" displayName="INTERNATIONAL NORMAL RATIO" /> <statusCode code= "completed" /> <effectiveTime value="763567204291" /> <value unit="" xsi:type="PQ" value="1.2" /> <interpretationCode codeSystem= "local" code="*" /> <referenceRange> <observationRange> <text>0.9-1.1</text> </observationRange> </ referenceRange> </observation> </component> <component> <observation moodCode="EVN" classCode="OBS"> <templateId root= "840.1.677568.1022.4.2" /> <id nullFlavor="NA" /> < code codeSystem="local" code="PTPAT" displayName="PROTHROMBIN TIME" /> <statusCode code="completed" /> <effectiveTime value="" /> <value unit="sec" xsi:type="PQ" value="13.3" /> < interpretationCode codeSystem="local" code="*" /> <referenceRange> <observationRange> <text>9.3-12.2</text> </ observationRange> </referenceRange> </observation> </ component> </organizer> </entry> <entry> <organizer moodCode="EVN" classCode="BATTERY"> <templateId root="840.1.255585.22.4.1" /> <id nullFlavor="NA" /> <code codeSystem="local" code="CBC" displayName ="CBC" /> <statusCode code="completed" /> <component> < observation moodCode="EVN" classCode="OBS"> <templateId root= "840.1.959589.1022.4.2" /> <id nullFlavor="NA" /> < code codeSystem="local" code="MCH" displayName="MEAN CELL HGB" /> < statusCode code="completed" /> <effectiveTime value="" /> <value unit="pg" xsi:type="PQ" value="26.5" /> < interpretationCode codeSystem="local" code="*" /> <referenceRange> <observationRange> <text>27.0-33.0</text> </ observationRange> </referenceRange> </observation> </ component> <component> <observation moodCode="EVN" classCode="OBS"> <templateId root="05.27.840.1.129767.01.28.22.4.2" /> <id nullFlavor="NA" /> <code codeSystem="local" code="MCHC" displayName= "MEAN CELL HGB CONCENTRATION" /> <statusCode code="completed" /> <effectiveTime value="" /> <value unit="g/dL" xsi:type= "PQ" value="31.7" /> <interpretationCode codeSystem="local" code="*" / > <referenceRange> <observationRange> <text> 32.0-37.0</text> </observationRange> </referenceRange> </observation> </component> <component> <observation moodCode="EVN" classCode="OBS"> <templateId root= "05.27.840.1.633385.01.28.22.4.2" /> <id nullFlavor="NA" /> < code codeSystem="local" code="MCV" displayName="MEAN CELL VOLUME" /> < statusCode code="completed" /> <effectiveTime value="" /> <value unit="fl" xsi:type="PQ" value="83.5" /> <referenceRange > <observationRange> <text>80.0-100.0</text> </observationRange> </referenceRange> </observation> </ component> <component> <observation moodCode="EVN" classCode="OBS"> <templateId root="05.27.840.1.139460.01.28.22.4.2" /> <id nullFlavor="NA" /> <code codeSystem="local" code="RBC" displayName=" RED BLOOD CELL" /> <statusCode code="completed" /> < effectiveTime value="" /> <value unit="m/cumm" xsi:type="PQ " value="3.10" /> <interpretationCode codeSystem="local" code="*" /> <referenceRange> <observationRange> <text>4.00- 6.00</text> </observationRange> </referenceRange> </ observation> </component> <component> <observation moodCode= "EVN" classCode="OBS"> <templateId root="2.16.840.1.844024.01.28.22.4.2 " /> <id nullFlavor="NA" /> <code codeSystem="local" code="RDW " displayName="RED CELL DISTRIBUTION WIDTH" /> <statusCode code= "completed" /> <effectiveTime value="" /> <value unit="%" xsi:type="PQ" value="15.5" /> <referenceRange> <observationRange> <text>11.0-15.6</text> </ observationRange> </referenceRange> </observation> </ component> <component> <observation moodCode="EVN" classCode="OBS"> <templateId root="2.16.840.1.215726.01.28.22.4.2" /> <id nullFlavor="NA" /> <code codeSystem="local" code="WBC" displayName= "WHITE BLOOD CELL" /> <statusCode code="completed" /> < effectiveTime value="" /> <value unit="k/cumm" xsi:type="PQ " value="11.3" /> <interpretationCode codeSystem="local" code="*" /> <referenceRange> <observationRange> <text>5.0- 10.0</text> </observationRange> </referenceRange> </ observation> </component> <component> <observation moodCode= "EVN" classCode="OBS"> <templateId root="05.27.840.1.243415.10.20.22.4.2 " /> <id nullFlavor="NA" /> <code codeSystem="local" code= "HGBT" displayName="HEMOGLOBIN" /> <statusCode code="completed" /> <effectiveTime value="409845144229" /> <value unit="gm/dL" xsi: type="PQ" value="8.2" /> <interpretationCode codeSystem="local" code="* " /> <referenceRange> <observationRange> <text> 12.0-16.0</text> </observationRange> </referenceRange> </observation> </component> <component> <observation moodCode="EVN" classCode="OBS"> <templateId root= "840.1.785041.10.20.22.4.2" /> <id nullFlavor="NA" /> < code codeSystem="local" code="HCTT" displayName="HEMATOCRIT" /> < statusCode code="completed" /> <effectiveTime value="" /> <value unit="%" xsi:type="PQ" value="25.9" /> < interpretationCode codeSystem="local" code="*" /> <referenceRange> <observationRange> <text>37.0-47.0</text> </ observationRange> </referenceRange> </observation> </ component> <component> <observation moodCode="EVN" classCode="OBS"> <templateId root="05.27.840.1.199556.10.20.22.4.2" /> <id nullFlavor="NA" /> <code codeSystem="local" code="PLT" displayName= "PLATELET COUNT" /> <statusCode code="completed" /> < effectiveTime value="" /> <value unit="k/cumm" xsi:type="PQ " value="187" /> <referenceRange> <observationRange> <text>150-400</text> </observationRange> </ referenceRange> </observation> </component> </organizer> </entry > <entry> <organizer moodCode="EVN" classCode="BATTERY"> <templateId root="16.840.1.810808.10.20.22.4.1" /> <id nullFlavor="NA" /> <code codeSystem="local" code="GLUMON" displayName="GLUCOSE (POC)" /> < statusCode code="completed" /> <component> <observation moodCode= "EVN" classCode="OBS"> <templateId root="05.27.840.1.406524.10.20.22.4.2 " /> <id nullFlavor="NA" /> <code codeSystem="local" code= "GLUMON" displayName="GLUCOSE (POC)" /> <statusCode code="completed" / > <effectiveTime value="152552816859" /> <value unit="mg/dL" xsi:type="PQ" value="106" /> <interpretationCode codeSystem="local" code="*" /> <referenceRange> <observationRange> <text>70-99</text> </observationRange> </referenceRange> </observation> </component> </organizer> </entry> <entry> < organizer moodCode="EVN" classCode="BATTERY"> <templateId root= "05.27.840.1.334853.10..22.4.1" /> <id nullFlavor="NA" /> <code codeSystem="local" code="PTTH" displayName="PTT HEPARIN PROTOCOLS" /> < statusCode code="completed" /> <component> <observation moodCode= "EVN" classCode="OBS"> <templateId root="16.840.1.960193.10..22.4.2 " /> <id nullFlavor="NA" /> <code codeSystem="local" code="PTT " displayName="PARTIAL THROMBOPLASTIN TIME" /> <statusCode code= "completed" /> <effectiveTime value="417304932444" /> <value unit="sec" xsi:type="PQ" value="105" /> <interpretationCode codeSystem= "local" code="*" /> <referenceRange> <observationRange> <text>23-39</text> </observationRange> </ referenceRange> </observation> </component> </organizer> </entry > <entry> <organizer moodCode="EVN" classCode="BATTERY"> <templateId root="216.840.1.223876.10..22.4.1" /> <id nullFlavor="NA" /> <code codeSystem="local" code="METAB" displayName="METABOLIC PANEL, BASIC" /> < statusCode code="completed" /> <component> <observation moodCode= "EVN" classCode="OBS"> <templateId root="216.840.1.080767.10..22.4.2 " /> <id nullFlavor="NA" /> <code codeSystem="local" code="K" displayName="POTASSIUM" /> <statusCode code="completed" /> < effectiveTime value="809727156543" /> <value unit="mmol/L" xsi:type="PQ " value="3.7" /> <referenceRange> <observationRange> <text>3.5-5.3</text> </observationRange> </ referenceRange> </observation> </component> <component> <observation moodCode="EVN" classCode="OBS"> <templateId root= "216.840.1.564429.10..22.4.2" /> <id nullFlavor="NA" /> < code codeSystem="local" code="eGFR" displayName="EST GFR (MDRD)" /> < statusCode code="completed" /> <effectiveTime value="" /> <value unit="mL/min" xsi:type="PQ" value="> 60" /> < referenceRange> <observationRange> <text>> 59</text> </observationRange> </referenceRange> </observation > </component> <component> <observation moodCode="EVN" classCode="OBS"> <templateId root="16.840.1.249544.10..22.4.2" /> <id nullFlavor="NA" /> <code codeSystem="local" code="GAP" displayName="ANION GAP" /> <statusCode code="completed" /> < effectiveTime value="" /> <value unit="mmol/L" xsi:type="PQ " value="10" /> <referenceRange> <observationRange> <text>5-15</text> </observationRange> </referenceRange > </observation> </component> <component> <observation moodCode="EVN" classCode="OBS"> <templateId root= "16.840.1.951856.10.20.22.4.2" /> <id nullFlavor="NA" /> < code codeSystem="local" code="eCrCl" displayName="EST CrCl (CG)" /> < statusCode code="completed" /> <effectiveTime value="" /> <value unit="mL/min" xsi:type="PQ" value="> 60" /> < referenceRange> <observationRange> <text>> 59</text> </observationRange> </referenceRange> </observation > </component> <component> <observation moodCode="EVN" classCode="OBS"> <templateId root="05.27.840.1.431012.10.20.22.4.2" /> <id nullFlavor="NA" /> <code codeSystem="local" code="GLU" displayName="GLUCOSE" /> <statusCode code="completed" /> < effectiveTime value="" /> <value unit="mg/dL" xsi:type="PQ " value="103" /> <interpretationCode codeSystem="local" code="*" /> <referenceRange> <observationRange> <text>70-99</ text> </observationRange> </referenceRange> </ observation> </component> <component> <observation moodCode= "EVN" classCode="OBS"> <templateId root="05.27.840.1.819567.10.22.4.2 " /> <id nullFlavor="NA" /> <code codeSystem="local" code="CA " displayName="CALCIUM" /> <statusCode code="completed" /> < effectiveTime value="" /> <value unit="mg/dL" xsi:type="PQ " value="8.4" /> <interpretationCode codeSystem="local" code="*" /> <referenceRange> <observationRange> <text>8.5- 10.1</text> </observationRange> </referenceRange> </ observation> </component> <component> <observation moodCode= "EVN" classCode="OBS"> <templateId root="05.27.840.1.946136.10.20.22.4.2 " /> <id nullFlavor="NA" /> <code codeSystem="local" code="BUN " displayName="BLOOD UREA NITROGEN" /> <statusCode code="completed" /> <effectiveTime value="" /> <value unit="mg/dL" xsi:type="PQ" value="4" /> <interpretationCode codeSystem="local" code= "*" /> <referenceRange> <observationRange> < text>7-20</text> </observationRange> </referenceRange> </observation> </component> <component> <observation moodCode="EVN" classCode="OBS"> <templateId root= "2.16.840.1.832720.10.20.22.4.2" /> <id nullFlavor="NA" /> < code codeSystem="local" code="CREAT" displayName="CREATININE" /> < statusCode code="completed" /> <effectiveTime value="" /> <value unit="mg/dL" xsi:type="PQ" value="0.4" /> < interpretationCode codeSystem="local" code="*" /> <referenceRange> <observationRange> <text>0.6-1.0</text> </ observationRange> </referenceRange> </observation> </ component> <component> <observation moodCode="EVN" classCode="OBS"> <templateId root="2.16.840.1.497925.10.20.22.4.2" /> <id nullFlavor="NA" /> <code codeSystem="local" code="NA" displayName= "SODIUM" /> <statusCode code="completed" /> <effectiveTime value="" /> <value unit="mmol/L" xsi:type="PQ" value="137" /> <referenceRange> <observationRange> <text> 135-148</text> </observationRange> </referenceRange> </observation> </component> <component> <observation moodCode= "EVN" classCode="OBS"> <templateId root="840.1.040814.1022.4.2 " /> <id nullFlavor="NA" /> <code codeSystem="local" code="CL " displayName="CHLORIDE" /> <statusCode code="completed" /> < effectiveTime value="" /> <value unit="mmol/L" xsi:type="PQ " value="102" /> <referenceRange> <observationRange> <text>98-110</text> </observationRange> </ referenceRange> </observation> </component> <component> <observation moodCode="EVN" classCode="OBS"> <templateId root= "840.1.411046.01.28.22.4.2" /> <id nullFlavor="NA" /> < code codeSystem="local" code="CO2" displayName="CARBON DIOXIDE" /> < statusCode code="completed" /> <effectiveTime value="" /> <value unit="mmol/L" xsi:type="PQ" value="25" /> < referenceRange> <observationRange> <text>21-32</text> </observationRange> </referenceRange> </observation> </component> </organizer> </entry> <entry> <organizer moodCode="EVN " classCode="BATTERY"> <templateId root="840.1.413662.22.4.1" / > <id nullFlavor="NA" /> <code codeSystem="local" code="CBC" displayName="CBC" /> <statusCode code="completed" /> <component> <observation moodCode="EVN" classCode="OBS"> <templateId root= "840.1.570109.1022.4.2" /> <id nullFlavor="NA" /> < code codeSystem="local" code="CBCCOM" displayName="COMMENT" /> < statusCode code="completed" /> <effectiveTime value="" /> <value unit="" xsi:type="PQ" value="REVIEWED" /> < referenceRange> <observationRange> <text /> < /observationRange> </referenceRange> </observation> </ component> <component> <observation moodCode="EVN" classCode="OBS"> <templateId root="216.840.1.251067.10.20.22.4.2" /> <id nullFlavor="NA" /> <code codeSystem="local" code="MCH" displayName= "MEAN CELL HGB" /> <statusCode code="completed" /> < effectiveTime value="" /> <value unit="pg" xsi:type="PQ" value="26.3" /> <interpretationCode codeSystem="local" code="*" /> <referenceRange> <observationRange> <text>27.0- 33.0</text> </observationRange> </referenceRange> </ observation> </component> <component> <observation moodCode= "EVN" classCode="OBS"> <templateId root="216.840.1.777976.10.20.22.4.2 " /> <id nullFlavor="NA" /> <code codeSystem="local" code= "MCHC" displayName="MEAN CELL HGB CONCENTRATION" /> <statusCode code= "completed" /> <effectiveTime value="" /> <value unit="g/dL" xsi:type="PQ" value="31.6" /> <interpretationCode codeSystem="local" code="*" /> <referenceRange> < observationRange> <text>32.0-37.0</text> </ observationRange> </referenceRange> </observation> </ component> <component> <observation moodCode="EVN" classCode="OBS"> <templateId root="16.840.1.718267.10..22.4.2" /> <id nullFlavor="NA" /> <code codeSystem="local" code="MCV" displayName= "MEAN CELL VOLUME" /> <statusCode code="completed" /> < effectiveTime value="" /> <value unit="fl" xsi:type="PQ" value="83.2" /> <referenceRange> <observationRange> <text>80.0-100.0</text> </observationRange> </ referenceRange> </observation> </component> <component> <observation moodCode="EVN" classCode="OBS"> <templateId root= "05.27.840.1.575679.1022.4.2" /> <id nullFlavor="NA" /> < code codeSystem="local" code="RBC" displayName="RED BLOOD CELL" /> < statusCode code="completed" /> <effectiveTime value="" /> <value unit="m/cumm" xsi:type="PQ" value="3.04" /> < interpretationCode codeSystem="local" code="*" /> <referenceRange> <observationRange> <text>4.00-6.00</text> </ observationRange> </referenceRange> </observation> </ component> <component> <observation moodCode="EVN" classCode="OBS"> <templateId root="05.27.840.1.072067.10.22.4.2" /> <id nullFlavor="NA" /> <code codeSystem="local" code="RDW" displayName=" RED CELL DISTRIBUTION WIDTH" /> <statusCode code="completed" /> <effectiveTime value="" /> <value unit="%" xsi:type= "PQ" value="15.5" /> <referenceRange> <observationRange> <text>11.0-15.6</text> </observationRange> </ referenceRange> </observation> </component> <component> <observation moodCode="EVN" classCode="OBS"> <templateId root= "216.840.1.278491.01.28.22.4.2" /> <id nullFlavor="NA" /> < code codeSystem="local" code="WBC" displayName="WHITE BLOOD CELL" /> < statusCode code="completed" /> <effectiveTime value="" /> <value unit="k/cumm" xsi:type="PQ" value="10.3" /> < interpretationCode codeSystem="local" code="*" /> <referenceRange> <observationRange> <text>5.0-10.0</text> </ observationRange> </referenceRange> </observation> </ component> <component> <observation moodCode="EVN" classCode="OBS"> <templateId root="216.840.1.176051.01.28.22.4.2" /> <id nullFlavor="NA" /> <code codeSystem="local" code="HGBT" displayName= "HEMOGLOBIN" /> <statusCode code="completed" /> < effectiveTime value="" /> <value unit="gm/dL" xsi:type="PQ " value="8.0" /> <interpretationCode codeSystem="local" code="*" /> <referenceRange> <observationRange> <text>12.0- 16.0</text> </observationRange> </referenceRange> </ observation> </component> <component> <observation moodCode= "EVN" classCode="OBS"> <templateId root="216.840.1.674747.01.28.22.4.2 " /> <id nullFlavor="NA" /> <code codeSystem="local" code= "HCTT" displayName="HEMATOCRIT" /> <statusCode code="completed" /> <effectiveTime value="608925802789" /> <value unit="%" xsi: type="PQ" value="25.3" /> <interpretationCode codeSystem="local" code= "*" /> <referenceRange> <observationRange> < text>37.0-47.0</text> </observationRange> </referenceRange> </observation> </component> <component> <observation moodCode="EVN" classCode="OBS"> <templateId root= "16.840.1.596036.01.28.224.2" /> <id nullFlavor="NA" /> < code codeSystem="local" code="PLT" displayName="PLATELET COUNT" /> < statusCode code="completed" /> <effectiveTime value="" /> <value unit="k/cumm" xsi:type="PQ" value="123" /> < interpretationCode codeSystem="local" code="*" /> <referenceRange> <observationRange> <text>150-400</text> </ observationRange> </referenceRange> </observation> </ component> </organizer> </entry> <entry> <organizer moodCode="EVN" classCode="BATTERY"> <templateId root="05.27.840.1.641730.10.4.1" /> <id nullFlavor="NA" /> <code codeSystem="local" code="GLUMON" displayName="GLUCOSE (POC)" /> <statusCode code="completed" /> < component> <observation moodCode="EVN" classCode="OBS"> < templateId root="05.27.840.1.996873.10..22.4.2" /> <id nullFlavor="NA " /> <code codeSystem="local" code="GLUMON" displayName="GLUCOSE (POC) " /> <statusCode code="completed" /> <effectiveTime value= "102494970766" /> <value unit="mg/dL" xsi:type="PQ" value="97" /> <referenceRange> <observationRange> <text>70-99</ text> </observationRange> </referenceRange> </ observation> </component> </organizer> </entry> <entry> <organizer moodCode="EVN" classCode="BATTERY"> <templateId root= "216.840.1.079367.10..22.4.1" /> <id nullFlavor="NA" /> <code codeSystem="local" code="PTT" displayName="PARTIAL THROMBOPLASTIN TIME" /> <statusCode code="completed" /> <component> <observation moodCode= "EVN" classCode="OBS"> <templateId root="216.840.1.608660.10..22.4.2 " /> <id nullFlavor="NA" /> <code codeSystem="local" code="PTT " displayName="PARTIAL THROMBOPLASTIN TIME" /> <statusCode code= "completed" /> <effectiveTime value="091858485141" /> <value unit="sec" xsi:type="PQ" value="66" /> <interpretationCode codeSystem= "local" code="*" /> <referenceRange> <observationRange> <text>23-39</text> </observationRange> </ referenceRange> </observation> </component> </organizer> </entry > <entry> <organizer moodCode="EVN" classCode="BATTERY"> <templateId root="216.840.1.851797.01.28.22.4.1" /> <id nullFlavor="NA" /> <code codeSystem="local" code="GLUMON" displayName="GLUCOSE (POC)" /> < statusCode code="completed" /> <component> <observation moodCode= "EVN" classCode="OBS"> <templateId root="840.1.224822.01.28.22.4.2 " /> <id nullFlavor="NA" /> <code codeSystem="local" code= "GLUMON" displayName="GLUCOSE (POC)" /> <statusCode code="completed" / > <effectiveTime value="098736397497" /> <value unit="mg/dL" xsi:type="PQ" value="111" /> <interpretationCode codeSystem="local" code="*" /> <referenceRange> <observationRange> <text>70-99</text> </observationRange> </referenceRange> </observation> </component> </organizer> </entry> <entry> < organizer moodCode="EVN" classCode="BATTERY"> <templateId root= "840.1.452056.01.28.22.4.1" /> <id nullFlavor="NA" /> <code codeSystem="local" code="VANCT" displayName="VANCOMYCIN TROUGH" /> < statusCode code="completed" /> <component> <observation moodCode= "EVN" classCode="OBS"> <templateId root="840.1.052395.01.28.22.4.2 " /> <id nullFlavor="NA" /> <code codeSystem="local" code= "VANCT" displayName="VANCOMYCIN TROUGH" /> <statusCode code="completed " /> <effectiveTime value="218192476173" /> <value unit="mcg/ mL" xsi:type="PQ" value="8.1" /> <referenceRange> < observationRange> <text>5.0-20.0</text> </ observationRange> </referenceRange> </observation> </ component> </organizer> </entry> <entry> <organizer moodCode="EVN" classCode="BATTERY"> <templateId root="05.27.840.1.717091.10...4.1" /> <id nullFlavor="NA" /> <code codeSystem="local" code="GLUMON" displayName="GLUCOSE (POC)" /> <statusCode code="completed" /> < component> <observation moodCode="EVN" classCode="OBS"> < templateId root="840.1.317918...4.2" /> <id nullFlavor="NA " /> <code codeSystem="local" code="GLUMON" displayName="GLUCOSE (POC) " /> <statusCode code="completed" /> <effectiveTime value= "846594300727" /> <value unit="mg/dL" xsi:type="PQ" value="115" /> <interpretationCode codeSystem="local" code="*" /> < referenceRange> <observationRange> <text>70-99</text> </observationRange> </referenceRange> </observation> </component> </organizer> </entry> <entry> <organizer moodCode="EVN " classCode="BATTERY"> <templateId root="05.27.840.1.430036.10..4.1" / > <id nullFlavor="NA" /> <code codeSystem="local" code="PTTH" displayName="PTT HEPARIN PROTOCOLS" /> <statusCode code="completed" /> <component> <observation moodCode="EVN" classCode="OBS"> < templateId root="05.27.840.1.155684..4.2" /> <id nullFlavor="NA " /> <code codeSystem="local" code="PTT" displayName="PARTIAL THROMBOPLASTIN TIME" /> <statusCode code="completed" /> < effectiveTime value="971535462169" /> <value unit="sec" xsi:type="PQ" value="61" /> <interpretationCode codeSystem="local" code="*" /> <referenceRange> <observationRange> <text>23-39</ text> </observationRange> </referenceRange> </ observation> </component> </organizer> </entry> <entry> <organizer moodCode="EVN" classCode="BATTERY"> <templateId root= "216.840.1.065344.10.4.1" /> <id nullFlavor="NA" /> <code codeSystem="local" code="GLUMON" displayName="GLUCOSE (POC)" /> < statusCode code="completed" /> <component> <observation moodCode= "EVN" classCode="OBS"> <templateId root="2.16.840.1.860650.10.4.2 " /> <id nullFlavor="NA" /> <code codeSystem="local" code= "GLUMON" displayName="GLUCOSE (POC)" /> <statusCode code="completed" / > <effectiveTime value="276064105644" /> <value unit="mg/dL" xsi:type="PQ" value="106" /> <interpretationCode codeSystem="local" code="*" /> <referenceRange> <observationRange> <text>70-99</text> </observationRange> </referenceRange> </observation> </component> </organizer> </entry> <entry> < organizer moodCode="EVN" classCode="BATTERY"> <templateId root= "216.840.1.127811.01.28.22.4.1" /> <id nullFlavor="NA" /> <code codeSystem="local" code="GLUMON" displayName="GLUCOSE (POC)" /> < statusCode code="completed" /> <component> <observation moodCode= "EVN" classCode="OBS"> <templateId root="05.27.840.1.468565.01.28.22.4.2 " /> <id nullFlavor="NA" /> <code codeSystem="local" code= "GLUMON" displayName="GLUCOSE (POC)" /> <statusCode code="completed" / > <effectiveTime value="119258154533" /> <value unit="mg/dL" xsi:type="PQ" value="112" /> <interpretationCode codeSystem="local" code="*" /> <referenceRange> <observationRange> <text>70-99</text> </observationRange> </referenceRange> </observation> </component> </organizer> </entry> <entry> < organizer moodCode="EVN" classCode="BATTERY"> <templateId root= "840.1.355656.01.28.22.4.1" /> <id nullFlavor="NA" /> <code codeSystem="local" code="GLUMON" displayName="GLUCOSE (POC)" /> < statusCode code="completed" /> <component> <observation moodCode= "EVN" classCode="OBS"> <templateId root="05.27.840.1.802755.10.4.2 " /> <id nullFlavor="NA" /> <code codeSystem="local" code= "GLUMON" displayName="GLUCOSE (POC)" /> <statusCode code="completed" / > <effectiveTime value="066935356170" /> <value unit="mg/dL" xsi:type="PQ" value="118" /> <interpretationCode codeSystem="local" code="*" /> <referenceRange> <observationRange> <text>70-99</text> </observationRange> </referenceRange> </observation> </component> </organizer> </entry> <entry> < organizer moodCode="EVN" classCode="BATTERY"> <templateId root= "16.840.1.490454.10..22.4.1" /> <id nullFlavor="NA" /> <code codeSystem="local" code="PTTH" displayName="PTT HEPARIN PROTOCOLS" /> < statusCode code="completed" /> <component> <observation moodCode= "EVN" classCode="OBS"> <templateId root="16.840.1.876269.10...4.2 " /> <id nullFlavor="NA" /> <code codeSystem="local" code="PTT " displayName="PARTIAL THROMBOPLASTIN TIME" /> <statusCode code= "completed" /> <effectiveTime value="121175778130" /> <value unit="sec" xsi:type="PQ" value="102" /> <interpretationCode codeSystem= "local" code="*" /> <referenceRange> <observationRange> <text>23-39</text> </observationRange> </ referenceRange> </observation> </component> </organizer> </entry > <entry> <organizer moodCode="EVN" classCode="BATTERY"> <templateId root="05.27.840.1.012197.10...4.1" /> <id nullFlavor="NA" /> <code codeSystem="local" code="GLUMON" displayName="GLUCOSE (POC)" /> < statusCode code="completed" /> <component> <observation moodCode= "EVN" classCode="OBS"> <templateId root="05.27.840.1.126689.10..22.4.2 " /> <id nullFlavor="NA" /> <code codeSystem="local" code= "GLUMON" displayName="GLUCOSE (POC)" /> <statusCode code="completed" / > <effectiveTime value="186093964378" /> <value unit="mg/dL" xsi:type="PQ" value="98" /> <referenceRange> < observationRange> <text>70-99</text> </observationRange > </referenceRange> </observation> </component> </ organizer> </entry> <entry> <organizer moodCode="EVN" classCode="BATTERY"> <templateId root="216.840.1.134898.10..22.4.1" /> <id nullFlavor= "NA" /> <code codeSystem="local" code="PTTH" displayName="PTT HEPARIN PROTOCOLS" /> <statusCode code="completed" /> <component> < observation moodCode="EVN" classCode="OBS"> <templateId root= "2.16.840.1.320595.10..22.4.2" /> <id nullFlavor="NA" /> < code codeSystem="local" code="PTT" displayName="PARTIAL THROMBOPLASTIN TIME" /> <statusCode code="completed" /> <effectiveTime value= "683098021208" /> <value unit="sec" xsi:type="PQ" value="202" /> <interpretationCode codeSystem="local" code="" /> <referenceRange > <observationRange> <text>23-39</text> </ observationRange> </referenceRange> </observation> </ component> </organizer> </entry> <entry> <organizer moodCode="EVN" classCode="BATTERY"> <templateId root="216.840.1.541653.01.28.22.4.1" /> <id nullFlavor="NA" /> <code codeSystem="local" code="GLUMON" displayName="GLUCOSE (POC)" /> <statusCode code="completed" /> < component> <observation moodCode="EVN" classCode="OBS"> < templateId root="05.27.840.1.415381.01.28.22.4.2" /> <id nullFlavor="NA " /> <code codeSystem="local" code="GLUMON" displayName="GLUCOSE (POC) " /> <statusCode code="completed" /> <effectiveTime value= "" /> <value unit="mg/dL" xsi:type="PQ" value="106" /> <interpretationCode codeSystem="local" code="*" /> < referenceRange> <observationRange> <text>70-99</text> </observationRange> </referenceRange> </observation> </component> </organizer> </entry> <entry> <organizer moodCode="EVN " classCode="BATTERY"> <templateId root="840.1.448913.01.28.22.4.1" / > <id nullFlavor="NA" /> <code codeSystem="local" code="GLUMON" displayName="GLUCOSE (POC)" /> <statusCode code="completed" /> < component> <observation moodCode="EVN" classCode="OBS"> < templateId root="05.27.840.1.551971.10.4.2" /> <id nullFlavor="NA " /> <code codeSystem="local" code="GLUMON" displayName="GLUCOSE (POC) " /> <statusCode code="completed" /> <effectiveTime value= "" /> <value unit="mg/dL" xsi:type="PQ" value="102" /> <interpretationCode codeSystem="local" code="*" /> < referenceRange> <observationRange> <text>70-99</text> </observationRange> </referenceRange> </observation> </component> </organizer> </entry> <entry> <organizer moodCode="EVN " classCode="BATTERY"> <templateId root="05.27.840.1.118942.10..22.4.1" / > <id nullFlavor="NA" /> <code codeSystem="local" code="PTTH" displayName="PTT HEPARIN PROTOCOLS" /> <statusCode code="completed" /> <component> <observation moodCode="EVN" classCode="OBS"> < templateId root="05.27.840.1.173505.10..22.4.2" /> <id nullFlavor="NA " /> <code codeSystem="local" code="PTT" displayName="PARTIAL THROMBOPLASTIN TIME" /> <statusCode code="completed" /> < effectiveTime value="743228359194" /> <value unit="sec" xsi:type="PQ" value="79" /> <interpretationCode codeSystem="local" code="*" /> <referenceRange> <observationRange> <text>23-39</ text> </observationRange> </referenceRange> </ observation> </component> </organizer> </entry> <entry> <organizer moodCode="EVN" classCode="BATTERY"> <templateId root= "05.27.840.1.805376.10..22.4.1" /> <id nullFlavor="NA" /> <code codeSystem="local" code="GLUMON" displayName="GLUCOSE (POC)" /> < statusCode code="completed" /> <component> <observation moodCode= "EVN" classCode="OBS"> <templateId root="840.1.818167.10..22.4.2 " /> <id nullFlavor="NA" /> <code codeSystem="local" code= "GLUMON" displayName="GLUCOSE (POC)" /> <statusCode code="completed" / > <effectiveTime value="190126528808" /> <value unit="mg/dL" xsi:type="PQ" value="99" /> <referenceRange> < observationRange> <text>70-99</text> </observationRange > </referenceRange> </observation> </component> </ organizer> </entry> <entry> <organizer moodCode="EVN" classCode="BATTERY"> <templateId root="216.840.1.020965.10..22.4.1" /> <id nullFlavor= "NA" /> <code codeSystem="local" code="PTTH" displayName="PTT HEPARIN PROTOCOLS" /> <statusCode code="completed" /> <component> < observation moodCode="EVN" classCode="OBS"> <templateId root= "2.16.840.1.878316.10..22.4.2" /> <id nullFlavor="NA" /> < code codeSystem="local" code="PTT" displayName="PARTIAL THROMBOPLASTIN TIME" /> <statusCode code="completed" /> <effectiveTime value= "900634697081" /> <value unit="sec" xsi:type="PQ" value="79" /> <interpretationCode codeSystem="local" code="*" /> <referenceRange> <observationRange> <text>23-39</text> </ observationRange> </referenceRange> </observation> </ component> </organizer> </entry> <entry> <organizer moodCode="EVN" classCode="BATTERY"> <templateId root="216.840.1.470652...4.1" /> <id nullFlavor="NA" /> <code codeSystem="local" code="GLUMON" displayName="GLUCOSE (POC)" /> <statusCode code="completed" /> < component> <observation moodCode="EVN" classCode="OBS"> < templateId root="05.27.840.1.979844.01.28.22.4.2" /> <id nullFlavor="NA " /> <code codeSystem="local" code="GLUMON" displayName="GLUCOSE (POC) " /> <statusCode code="completed" /> <effectiveTime value= "593961547455" /> <value unit="mg/dL" xsi:type="PQ" value="104" /> <interpretationCode codeSystem="local" code="*" /> < referenceRange> <observationRange> <text>70-99</text> </observationRange> </referenceRange> </observation> </component> </organizer> </entry> <entry> <organizer moodCode="EVN " classCode="BATTERY"> <templateId root="840.1.727342.01.28.22.4.1" / > <id nullFlavor="NA" /> <code codeSystem="local" code="GLUMON" displayName="GLUCOSE (POC)" /> <statusCode code="completed" /> < component> <observation moodCode="EVN" classCode="OBS"> < templateId root="05.27.840.1.804915.01.28.22.4.2" /> <id nullFlavor="NA " /> <code codeSystem="local" code="GLUMON" displayName="GLUCOSE (POC) " /> <statusCode code="completed" /> <effectiveTime value= "026035183467" /> <value unit="mg/dL" xsi:type="PQ" value="98" /> <referenceRange> <observationRange> <text>70-99</ text> </observationRange> </referenceRange> </ observation> </component> </organizer> </entry> <entry> <organizer moodCode="EVN" classCode="BATTERY"> <templateId root= "05.27.840.1.262783.10..22.4.1" /> <id nullFlavor="NA" /> <code codeSystem="local" code="PTTH" displayName="PTT HEPARIN PROTOCOLS" /> < statusCode code="completed" /> <component> <observation moodCode= "EVN" classCode="OBS"> <templateId root="05.27.840.1.598985.10..4.2 " /> <id nullFlavor="NA" /> <code codeSystem="local" code="PTT " displayName="PARTIAL THROMBOPLASTIN TIME" /> <statusCode code= "completed" /> <effectiveTime value="064762528802" /> <value unit="sec" xsi:type="PQ" value="62" /> <interpretationCode codeSystem= "local" code="*" /> <referenceRange> <observationRange> <text>23-39</text> </observationRange> </ referenceRange> </observation> </component> </organizer> </entry > <entry> <organizer moodCode="EVN" classCode="BATTERY"> <templateId root="05.27.840.1.894732.10..22.4.1" /> <id nullFlavor="NA" /> <code codeSystem="local" code="CBC" displayName="CBC" /> <statusCode code= "completed" /> <component> <observation moodCode="EVN" classCode= "OBS"> <templateId root="05.27.840.1.686729...4.2" /> < id nullFlavor="NA" /> <code codeSystem="local" code="CBCCOM" displayName="COMMENT" /> <statusCode code="completed" /> < effectiveTime value="" /> <value unit="" xsi:type="PQ" value="CC" /> <referenceRange> <observationRange> <text /> </observationRange> </referenceRange> </ observation> </component> <component> <observation moodCode= "EVN" classCode="OBS"> <templateId root="216.840.1.297646.10..4.2 " /> <id nullFlavor="NA" /> <code codeSystem="local" code="MCH " displayName="MEAN CELL HGB" /> <statusCode code="completed" /> <effectiveTime value="" /> <value unit="pg" xsi:type= "PQ" value="25.6" /> <interpretationCode codeSystem="local" code="*" / > <referenceRange> <observationRange> <text> 27.0-33.0</text> </observationRange> </referenceRange> </observation> </component> <component> <observation moodCode="EVN" classCode="OBS"> <templateId root= "16.840.1.230586.10.4.2" /> <id nullFlavor="NA" /> < code codeSystem="local" code="MCHC" displayName="MEAN CELL HGB CONCENTRATION" / > <statusCode code="completed" /> <effectiveTime value= "" /> <value unit="g/dL" xsi:type="PQ" value="30.6" /> <interpretationCode codeSystem="local" code="*" /> < referenceRange> <observationRange> <text>32.0-37.0</text > </observationRange> </referenceRange> </observation > </component> <component> <observation moodCode="EVN" classCode="OBS"> <templateId root="216.840.1.119882.10.22.4.2" /> <id nullFlavor="NA" /> <code codeSystem="local" code="MCV" displayName="MEAN CELL VOLUME" /> <statusCode code="completed" /> <effectiveTime value="" /> <value unit="fl" xsi:type= "PQ" value="83.7" /> <referenceRange> <observationRange> <text>80.0-100.0</text> </observationRange> </ referenceRange> </observation> </component> <component> <observation moodCode="EVN" classCode="OBS"> <templateId root= "05.27.840.1.253454.01.28.22.4.2" /> <id nullFlavor="NA" /> < code codeSystem="local" code="RBC" displayName="RED BLOOD CELL" /> < statusCode code="completed" /> <effectiveTime value="" /> <value unit="m/cumm" xsi:type="PQ" value="2.89" /> < interpretationCode codeSystem="local" code="*" /> <referenceRange> <observationRange> <text>4.00-6.00</text> </ observationRange> </referenceRange> </observation> </ component> <component> <observation moodCode="EVN" classCode="OBS"> <templateId root="16.840.1.939703.1022.4.2" /> <id nullFlavor="NA" /> <code codeSystem="local" code="RDW" displayName=" RED CELL DISTRIBUTION WIDTH" /> <statusCode code="completed" /> <effectiveTime value="" /> <value unit="%" xsi:type= "PQ" value="15.4" /> <referenceRange> <observationRange> <text>11.0-15.6</text> </observationRange> </ referenceRange> </observation> </component> <component> <observation moodCode="EVN" classCode="OBS"> <templateId root= "216.840.1.975240.01.28.22.4.2" /> <id nullFlavor="NA" /> < code codeSystem="local" code="WBC" displayName="WHITE BLOOD CELL" /> < statusCode code="completed" /> <effectiveTime value="" /> <value unit="k/cumm" xsi:type="PQ" value="6.3" /> < referenceRange> <observationRange> <text>5.0-10.0</text > </observationRange> </referenceRange> </observation > </component> <component> <observation moodCode="EVN" classCode="OBS"> <templateId root="2.16.840.1.939018.01.28.224.2" /> <id nullFlavor="NA" /> <code codeSystem="local" code="HGBT" displayName="HEMOGLOBIN" /> <statusCode code="completed" /> < effectiveTime value="" /> <value unit="gm/dL" xsi:type="PQ " value="7.4" /> <interpretationCode codeSystem="local" code="*" /> <referenceRange> <observationRange> <text>12.0- 16.0</text> </observationRange> </referenceRange> </ observation> </component> <component> <observation moodCode= "EVN" classCode="OBS"> <templateId root="216.840.1.362421.10..22.4.2 " /> <id nullFlavor="NA" /> <code codeSystem="local" code= "HCTT" displayName="HEMATOCRIT" /> <statusCode code="completed" /> <effectiveTime value="829043430988" /> <value unit="%" xsi: type="PQ" value="24.2" /> <interpretationCode codeSystem="local" code= "*" /> <referenceRange> <observationRange> < text>37.0-47.0</text> </observationRange> </referenceRange> </observation> </component> </organizer> </entry> <entry> < organizer moodCode="EVN" classCode="BATTERY"> <templateId root= "216.840.1.155265.10..22.4.1" /> <id nullFlavor="NA" /> <code codeSystem="local" code="GLUMON" displayName="GLUCOSE (POC)" /> < statusCode code="completed" /> <component> <observation moodCode= "EVN" classCode="OBS"> <templateId root="216.840.1.778095.10..22.4.2 " /> <id nullFlavor="NA" /> <code codeSystem="local" code= "GLUMON" displayName="GLUCOSE (POC)" /> <statusCode code="completed" / > <effectiveTime value="169408179654" /> <value unit="mg/dL" xsi:type="PQ" value="95" /> <referenceRange> < observationRange> <text>70-99</text> </observationRange > </referenceRange> </observation> </component> </ organizer> </entry> <entry> <organizer moodCode="EVN" classCode="BATTERY"> <templateId root="216.840.1.426640.22.4.1" /> <id nullFlavor= "NA" /> <code codeSystem="local" code="VANCT" displayName="VANCOMYCIN TROUGH" /> <statusCode code="completed" /> <component> < observation moodCode="EVN" classCode="OBS"> <templateId root= "05.27.840.1.903045.10..22.4.2" /> <id nullFlavor="NA" /> < code codeSystem="local" code="VANCT" displayName="VANCOMYCIN TROUGH" /> <statusCode code="completed" /> <effectiveTime value="152953118297" / > <value unit="mcg/mL" xsi:type="PQ" value="16.0" /> < referenceRange> <observationRange> <text>5.0-20.0</text > </observationRange> </referenceRange> </observation > </component> </organizer> </entry> <entry> <organizer moodCode= "EVN" classCode="BATTERY"> <templateId root="05.27.840.1.955174.10..22.4.1 " /> <id nullFlavor="NA" /> <code codeSystem="local" code="GLUMON" displayName="GLUCOSE (POC)" /> <statusCode code="completed" /> < component> <observation moodCode="EVN" classCode="OBS"> < templateId root="05.27.840.1.627130.10..22.4.2" /> <id nullFlavor="NA " /> <code codeSystem="local" code="GLUMON" displayName="GLUCOSE (POC) " /> <statusCode code="completed" /> <effectiveTime value= "445347035520" /> <value unit="mg/dL" xsi:type="PQ" value="109" /> <interpretationCode codeSystem="local" code="*" /> < referenceRange> <observationRange> <text>70-99</text> </observationRange> </referenceRange> </observation> </component> </organizer> </entry> <entry> <organizer moodCode="EVN " classCode="BATTERY"> <templateId root="05.27.840.1.978649.10..22.4.1" / > <id nullFlavor="NA" /> <code codeSystem="local" code="GLUMON" displayName="GLUCOSE (POC)" /> <statusCode code="completed" /> < component> <observation moodCode="EVN" classCode="OBS"> < templateId root="05.27.840.1.430778..22.4.2" /> <id nullFlavor="NA " /> <code codeSystem="local" code="GLUMON" displayName="GLUCOSE (POC) " /> <statusCode code="completed" /> <effectiveTime value= "883482918649" /> <value unit="mg/dL" xsi:type="PQ" value="114" /> <interpretationCode codeSystem="local" code="*" /> < referenceRange> <observationRange> <text>70-99</text> </observationRange> </referenceRange> </observation> </component> </organizer> </entry> <entry> <organizer moodCode="EVN " classCode="BATTERY"> <templateId root="[id number]" / > <id nullFlavor="NA" /> <code codeSystem="local" code="GLUMON" displayName="GLUCOSE (POC)" /> <statusCode code="completed" /> < component> <observation moodCode="EVN" classCode="OBS"> < templateId root="05.27.840.1.379617.01.28.22.4.2" /> <id nullFlavor="NA " /> <code codeSystem="local" code="GLUMON" displayName="GLUCOSE (POC) " /> <statusCode code="completed" /> <effectiveTime value= "121196978390" /> <value unit="mg/dL" xsi:type="PQ" value="109" /> <interpretationCode codeSystem="local" code="*" /> < referenceRange> <observationRange> <text>70-99</text> </observationRange> </referenceRange> </observation> </component> </organizer> </entry> <entry> <organizer moodCode="EVN " classCode="BATTERY"> <templateId root="2.16.840.1.516158.10..22.4.1" / > <id nullFlavor="NA" /> <code codeSystem="local" code="PTTH" displayName="PTT HEPARIN PROTOCOLS" /> <statusCode code="completed" /> <component> <observation moodCode="EVN" classCode="OBS"> < templateId root="2.16.840.1.352713.10..22.4.2" /> <id nullFlavor="NA " /> <code codeSystem="local" code="PTT" displayName="PARTIAL THROMBOPLASTIN TIME" /> <statusCode code="completed" /> < effectiveTime value="142167001936" /> <value unit="sec" xsi:type="PQ" value="81" /> <interpretationCode codeSystem="local" code="*" /> <referenceRange> <observationRange> <text>23-39</ text> </observationRange> </referenceRange> </ observation> </component> </organizer> </entry> <entry> <organizer moodCode="EVN" classCode="BATTERY"> <templateId root= "..840.1.199537.01.28.22.4.1" /> <id nullFlavor="NA" /> <code codeSystem="local" code="GLUMON" displayName="GLUCOSE (POC)" /> < statusCode code="completed" /> <component> <observation moodCode= "EVN" classCode="OBS"> <templateId root="840.1.559065.01.28.22.4.2 " /> <id nullFlavor="NA" /> <code codeSystem="local" code= "GLUMON" displayName="GLUCOSE (POC)" /> <statusCode code="completed" / > <effectiveTime value="169642944462" /> <value unit="mg/dL" xsi:type="PQ" value="106" /> <interpretationCode codeSystem="local" code="*" /> <referenceRange> <observationRange> <text>70-99</text> </observationRange> </referenceRange> </observation> </component> </organizer> </entry> <entry> < organizer moodCode="EVN" classCode="BATTERY"> <templateId root= "840.1.640403.01.28.22.4.1" /> <id nullFlavor="NA" /> <code codeSystem="local" code="GLUMON" displayName="GLUCOSE (POC)" /> < statusCode code="completed" /> <component> <observation moodCode= "EVN" classCode="OBS"> <templateId root="840.1.036422.01.28.22.4.2 " /> <id nullFlavor="NA" /> <code codeSystem="local" code= "GLUMON" displayName="GLUCOSE (POC)" /> <statusCode code="completed" / > <effectiveTime value="510607456761" /> <value unit="mg/dL" xsi:type="PQ" value="92" /> <referenceRange> < observationRange> <text>70-99</text> </observationRange > </referenceRange> </observation> </component> </ organizer> </entry> <entry> <organizer moodCode="EVN" classCode="BATTERY"> <templateId root="16.840.1.674301.10...4.1" /> <id nullFlavor= "NA" /> <code codeSystem="local" code="GLUMON" displayName="GLUCOSE (POC)" /> <statusCode code="completed" /> <component> <observation moodCode="EVN" classCode="OBS"> <templateId root= "05.27.840.1.532270.10..4.2" /> <id nullFlavor="NA" /> < code codeSystem="local" code="GLUMON" displayName="GLUCOSE (POC)" /> < statusCode code="completed" /> <effectiveTime value="147321112600" /> <value unit="mg/dL" xsi:type="PQ" value="122" /> < interpretationCode codeSystem="local" code="*" /> <referenceRange> <observationRange> <text>70-99</text> </ observationRange> </referenceRange> </observation> </ component> </organizer> </entry> <entry> <organizer moodCode="EVN" classCode="BATTERY"> <templateId root="05.27.840.1.135073.10..4.1" /> <id nullFlavor="NA" /> <code codeSystem="local" code="GLUMON" displayName="GLUCOSE (POC)" /> <statusCode code="completed" /> < component> <observation moodCode="EVN" classCode="OBS"> < templateId root="05.27.840.1.921324.01.28.22.4.2" /> <id nullFlavor="NA " /> <code codeSystem="local" code="GLUMON" displayName="GLUCOSE (POC) " /> <statusCode code="completed" /> <effectiveTime value= "048163704849" /> <value unit="mg/dL" xsi:type="PQ" value="102" /> <interpretationCode codeSystem="local" code="*" /> < referenceRange> <observationRange> <text>70-99</text> </observationRange> </referenceRange> </observation> </component> </organizer> </entry> <entry> <organizer moodCode="EVN " classCode="BATTERY"> <templateId root="216.840.1.809874.10..22.4.1" / > <id nullFlavor="NA" /> <code codeSystem="local" code="BCLACT" displayName="BC REFLEX LACTIC ACID" /> <statusCode code="completed" /> <component> <observation moodCode="EVN" classCode="OBS"> < templateId root="216.840.1.458805.10..22.4.2" /> <id nullFlavor="NA " /> <code codeSystem="local" code="LACT" displayName="LACTIC ACID" /> <statusCode code="completed" /> <effectiveTime value= "973080521952" /> <value unit="mmol/L" xsi:type="PQ" value="0.5" /> <referenceRange> <observationRange> <text>0.5-2.0 </text> </observationRange> </referenceRange> </ observation> </component> </organizer> </entry> <entry> <organizer moodCode="EVN" classCode="BATTERY"> <templateId root= "216.840.1.165222.01.28.22.4.1" /> <id nullFlavor="NA" /> <code codeSystem="local" code="BC" displayName="BLOOD CULTURE" /> <statusCode code="completed" /> <component> <observation moodCode="EVN" classCode="OBS"> <templateId root="05.27.840.1.313080.10..4.2" /> <id nullFlavor="NA" /> <code codeSystem="local" code="MB" displayName="Microbiology" /> <statusCode code="completed" /> <effectiveTime value="903952131485" /> <value xsi:type="ST" value="<pre ><b>BLOOD CULTURE</b> See BelowIs this the first BLOOD CULTURE or a possible SEPSIS patient? YBLOOD CULTURE(F) Sanam Date/Time: 04/13/2015 21: 12 Crow Date/Time: 04/19/2015 07:32SOURCE: BLOODSPEC DESC: [id number] [facility] [place] [address]</pre>" /> <referenceRange> < observationRange> <text /> </observationRange> </referenceRange> </observation> </component> </organizer> </ entry> <entry> <organizer moodCode="EVN" classCode="BATTERY"> < templateId root="840.1.105930.01.28.22.4.1" /> <id nullFlavor="NA" /> <code codeSystem="local" code="BC" displayName="BLOOD CULTURE" /> < statusCode code="completed" /> <component> <observation moodCode= "EVN" classCode="OBS"> <templateId root="216.840.1.946954.10..22.4.2 " /> <id nullFlavor="NA" /> <code codeSystem="local" code="MB " displayName="Microbiology" /> <statusCode code="completed" /> <effectiveTime value="232760208535" /> <value xsi:type="ST" value="< pre><b>BLOOD CULTURE</b> See BelowIs this the first BLOOD CULTURE or a possible SEPSIS patient? YBLOOD CULTURE(F) Sanam Date/Time: 04/13/2015 21: 22 Crow Date/Time: 04/19/2015 07:32SOURCE: BLOODSPEC DESC: [id number] [facility] [facility] [place] [place] [address]</pre>" /> <referenceRange> < observationRange> <text /> </observationRange> </referenceRange> </observation> </component> </organizer> </ entry> <entry> <organizer moodCode="EVN" classCode="BATTERY"> < templateId root="2.16.840.1.037021.10.20.22.4.1" /> <id nullFlavor="NA" /> <code codeSystem="local" code="GLUMON" displayName="GLUCOSE (POC)" /> <statusCode code="completed" /> <component> <observation moodCode= "EVN" classCode="OBS"> <templateId root="2.16.840.1.962914.10.20.22.4.2 " /> <id nullFlavor="NA" /> <code codeSystem="local" code= "GLUMON" displayName="GLUCOSE (POC)" /> <statusCode code="completed" / > <effectiveTime value="648978344961" /> <value unit="mg/dL" xsi:type="PQ" value="99" /> <referenceRange> < observationRange> <text>70-99</text> </observationRange > </referenceRange> </observation> </component> </ organizer> </entry> <entry> <organizer moodCode="EVN" classCode="BATTERY"> <templateId root="05.27.840.1.361403.10.4.1" /> <id nullFlavor= "NA" /> <code codeSystem="local" code="PTTH" displayName="PTT HEPARIN PROTOCOLS" /> <statusCode code="completed" /> <component> < observation moodCode="EVN" classCode="OBS"> <templateId root= "840.1.751311.01.28.22.4.2" /> <id nullFlavor="NA" /> < code codeSystem="local" code="PTT" displayName="PARTIAL THROMBOPLASTIN TIME" /> <statusCode code="completed" /> <effectiveTime value= "247320961321" /> <value unit="sec" xsi:type="PQ" value="89" /> <interpretationCode codeSystem="local" code="*" /> <referenceRange> <observationRange> <text>23-39</text> </ observationRange> </referenceRange> </observation> </ component> </organizer> </entry> <entry> <organizer moodCode="EVN" classCode="BATTERY"> <templateId root="840.1.116133.01.28.22.4.1" /> <id nullFlavor="NA" /> <code codeSystem="local" code="METAB" displayName="METABOLIC PANEL, BASIC" /> <statusCode code="completed" /> <component> <observation moodCode="EVN" classCode="OBS"> < templateId root="840.1.455683.01.28.22.4.2" /> <id nullFlavor="NA " /> <code codeSystem="local" code="K" displayName="POTASSIUM" /> <statusCode code="completed" /> <effectiveTime value="050831646408 " /> <value unit="mmol/L" xsi:type="PQ" value="3.7" /> < referenceRange> <observationRange> <text>3.5-5.3</text> </observationRange> </referenceRange> </observation > </component> <component> <observation moodCode="EVN" classCode="OBS"> <templateId root="16.840.1.514425.10...4.2" /> <id nullFlavor="NA" /> <code codeSystem="local" code="eGFR" displayName="EST GFR (MDRD)" /> <statusCode code="completed" /> <effectiveTime value="170604440302" /> <value unit="mL/min" xsi:type ="PQ" value="> 60" /> <referenceRange> <observationRange > <text>> 59</text> </observationRange> </ referenceRange> </observation> </component> <component> <observation moodCode="EVN" classCode="OBS"> <templateId root= "05.27.840.1.315185.10..4.2" /> <id nullFlavor="NA" /> < code codeSystem="local" code="GAP" displayName="ANION GAP" /> < statusCode code="completed" /> <effectiveTime value="591670922846" /> <value unit="mmol/L" xsi:type="PQ" value="9" /> < referenceRange> <observationRange> <text>5-15</text> </observationRange> </referenceRange> </observation> </component> <component> <observation moodCode="EVN" classCode= "OBS"> <templateId root="05.27.840.1.936098.10.20.22.4.2" /> < id nullFlavor="NA" /> <code codeSystem="local" code="eCrCl" displayName ="EST CrCl (CG)" /> <statusCode code="completed" /> < effectiveTime value="" /> <value unit="mL/min" xsi:type="PQ " value="> 60" /> <referenceRange> <observationRange> <text>> 59</text> </observationRange> </ referenceRange> </observation> </component> <component> <observation moodCode="EVN" classCode="OBS"> <templateId root= "05.27.840.1.217860.1022.4.2" /> <id nullFlavor="NA" /> < code codeSystem="local" code="GLU" displayName="GLUCOSE" /> < statusCode code="completed" /> <effectiveTime value="" /> <value unit="mg/dL" xsi:type="PQ" value="98" /> < referenceRange> <observationRange> <text>70-99</text> </observationRange> </referenceRange> </observation> </component> <component> <observation moodCode="EVN" classCode= "OBS"> <templateId root="05.27.840.1.508143.22.4.2" /> < id nullFlavor="NA" /> <code codeSystem="local" code="CA" displayName= "CALCIUM" /> <statusCode code="completed" /> <effectiveTime value="" /> <value unit="mg/dL" xsi:type="PQ" value="8.6" / > <referenceRange> <observationRange> <text>8.5 -10.1</text> </observationRange> </referenceRange> </ observation> </component> <component> <observation moodCode= "EVN" classCode="OBS"> <templateId root="05.27.840.1.076144..4.2 " /> <id nullFlavor="NA" /> <code codeSystem="local" code="BUN " displayName="BLOOD UREA NITROGEN" /> <statusCode code="completed" /> <effectiveTime value="" /> <value unit="mg/dL" xsi:type="PQ" value="6" /> <interpretationCode codeSystem="local" code= "*" /> <referenceRange> <observationRange> < text>7-20</text> </observationRange> </referenceRange> </observation> </component> <component> <observation moodCode="EVN" classCode="OBS"> <templateId root= "2.16.840.1.067367.01.28.22.4.2" /> <id nullFlavor="NA" /> < code codeSystem="local" code="CREAT" displayName="CREATININE" /> < statusCode code="completed" /> <effectiveTime value="" /> <value unit="mg/dL" xsi:type="PQ" value="0.7" /> < referenceRange> <observationRange> <text>0.6-1.0</text> </observationRange> </referenceRange> </observation > </component> <component> <observation moodCode="EVN" classCode="OBS"> <templateId root="2.16.840.1.303306.01.28.22.4.2" /> <id nullFlavor="NA" /> <code codeSystem="local" code="NA" displayName="SODIUM" /> <statusCode code="completed" /> < effectiveTime value="" /> <value unit="mmol/L" xsi:type="PQ " value="135" /> <referenceRange> <observationRange> <text>135-148</text> </observationRange> </ referenceRange> </observation> </component> <component> <observation moodCode="EVN" classCode="OBS"> <templateId root= "05.27.840.1.168822.01.28.22.4.2" /> <id nullFlavor="NA" /> < code codeSystem="local" code="CL" displayName="CHLORIDE" /> < statusCode code="completed" /> <effectiveTime value="784321104529" /> <value unit="mmol/L" xsi:type="PQ" value="102" /> < referenceRange> <observationRange> <text>98-110</text> </observationRange> </referenceRange> </observation> </component> <component> <observation moodCode="EVN" classCode ="OBS"> <templateId root="840.1.082016.01.28.22.4.2" /> < id nullFlavor="NA" /> <code codeSystem="local" code="CO2" displayName= "CARBON DIOXIDE" /> <statusCode code="completed" /> < effectiveTime value="863375011883" /> <value unit="mmol/L" xsi:type="PQ " value="24" /> <referenceRange> <observationRange> <text>21-32</text> </observationRange> </ referenceRange> </observation> </component> </organizer> </entry > <entry> <organizer moodCode="EVN" classCode="BATTERY"> <templateId root="05.27.840.1.244854.01.28.22.4.1" /> <id nullFlavor="NA" /> <code codeSystem="local" code="CBC" displayName="CBC" /> <statusCode code= "completed" /> <component> <observation moodCode="EVN" classCode= "OBS"> <templateId root="05.27.840.1.157720.01.28.22.4.2" /> < id nullFlavor="NA" /> <code codeSystem="local" code="MCH" displayName= "MEAN CELL HGB" /> <statusCode code="completed" /> < effectiveTime value="118194065939" /> <value unit="pg" xsi:type="PQ" value="25.3" /> <interpretationCode codeSystem="local" code="*" /> <referenceRange> <observationRange> <text>27.0- 33.0</text> </observationRange> </referenceRange> </ observation> </component> <component> <observation moodCode= "EVN" classCode="OBS"> <templateId root="16.840.1.573323.01.28.224.2 " /> <id nullFlavor="NA" /> <code codeSystem="local" code= "MCHC" displayName="MEAN CELL HGB CONCENTRATION" /> <statusCode code= "completed" /> <effectiveTime value="711934025484" /> <value unit="g/dL" xsi:type="PQ" value="30.6" /> <interpretationCode codeSystem="local" code="*" /> <referenceRange> < observationRange> <text>32.0-37.0</text> </ observationRange> </referenceRange> </observation> </ component> <component> <observation moodCode="EVN" classCode="OBS"> <templateId root="05.27.840.1.188977.10.4.2" /> <id nullFlavor="NA" /> <code codeSystem="local" code="MCV" displayName= "MEAN CELL VOLUME" /> <statusCode code="completed" /> < effectiveTime value="250896839575" /> <value unit="fl" xsi:type="PQ" value="82.8" /> <referenceRange> <observationRange> <text>80.0-100.0</text> </observationRange> </ referenceRange> </observation> </component> <component> <observation moodCode="EVN" classCode="OBS"> <templateId root= "16.840.1.385903.10.20.22.4.2" /> <id nullFlavor="NA" /> < code codeSystem="local" code="RBC" displayName="RED BLOOD CELL" /> < statusCode code="completed" /> <effectiveTime value="267256928925" /> <value unit="m/cumm" xsi:type="PQ" value="2.96" /> < interpretationCode codeSystem="local" code="*" /> <referenceRange> <observationRange> <text>4.00-6.00</text> </ observationRange> </referenceRange> </observation> </ component> <component> <observation moodCode="EVN" classCode="OBS"> <templateId root="05.27.840.1.578422.10.20.22.4.2" /> <id nullFlavor="NA" /> <code codeSystem="local" code="RDW" displayName=" RED CELL DISTRIBUTION WIDTH" /> <statusCode code="completed" /> <effectiveTime value="266351253330" /> <value unit="%" xsi:type= "PQ" value="15.9" /> <interpretationCode codeSystem="local" code="*" / > <referenceRange> <observationRange> <text> 11.0-15.6</text> </observationRange> </referenceRange> </observation> </component> <component> <observation moodCode="EVN" classCode="OBS"> <templateId root= "16.840.1.841052.10.20.22.4.2" /> <id nullFlavor="NA" /> < code codeSystem="local" code="WBC" displayName="WHITE BLOOD CELL" /> < statusCode code="completed" /> <effectiveTime value="359508187391" /> <value unit="k/cumm" xsi:type="PQ" value="5.3" /> < referenceRange> <observationRange> <text>5.0-10.0</text > </observationRange> </referenceRange> </observation > </component> <component> <observation moodCode="EVN" classCode="OBS"> <templateId root="2.16.840.1.004926.10.20.22.4.2" /> <id nullFlavor="NA" /> <code codeSystem="local" code="HGBT" displayName="HEMOGLOBIN" /> <statusCode code="completed" /> < effectiveTime value="326529381858" /> <value unit="gm/dL" xsi:type="PQ " value="7.5" /> <interpretationCode codeSystem="local" code="*" /> <referenceRange> <observationRange> <text>12.0- 16.0</text> </observationRange> </referenceRange> </ observation> </component> <component> <observation moodCode= "EVN" classCode="OBS"> <templateId root="2.16.840.1.516675.10.20.22.4.2 " /> <id nullFlavor="NA" /> <code codeSystem="local" code= "HCTT" displayName="HEMATOCRIT" /> <statusCode code="completed" /> <effectiveTime value="553383578879" /> <value unit="%" xsi: type="PQ" value="24.5" /> <interpretationCode codeSystem="local" code= "*" /> <referenceRange> <observationRange> < text>37.0-47.0</text> </observationRange> </referenceRange> </observation> </component> <component> <observation moodCode="EVN" classCode="OBS"> <templateId root= "216.840.1.129649.10..22.4.2" /> <id nullFlavor="NA" /> < code codeSystem="local" code="PLT" displayName="PLATELET COUNT" /> < statusCode code="completed" /> <effectiveTime value="092453866452" /> <value unit="k/cumm" xsi:type="PQ" value="Note" /> < referenceRange> <observationRange> <text>150-400</text> </observationRange> </referenceRange> </observation > </component> </organizer> </entry> <entry> <organizer moodCode= "EVN" classCode="BATTERY"> <templateId root="2.16.840.1.252158.10..22.4.1 " /> <id nullFlavor="NA" /> <code codeSystem="local" code="PLT" displayName="PLATELET COUNT" /> <statusCode code="completed" /> < component> <observation moodCode="EVN" classCode="OBS"> < templateId root="2.16.840.1.974994.10..22.4.2" /> <id nullFlavor="NA " /> <code codeSystem="local" code="PLT" displayName="PLATELET COUNT" / > <statusCode code="completed" /> <effectiveTime value= "969223916258" /> <value unit="k/cumm" xsi:type="PQ" value="225" /> <referenceRange> <observationRange> <text>150-400 </text> </observationRange> </referenceRange> </ observation> </component> </organizer> </entry> <entry> <organizer moodCode="EVN" classCode="BATTERY"> <templateId root= "840.1.036687.10..4.1" /> <id nullFlavor="NA" /> <code codeSystem="local" code="GLUMON" displayName="GLUCOSE (POC)" /> < statusCode code="completed" /> <component> <observation moodCode= "EVN" classCode="OBS"> <templateId root="840.1.900494.01.28.22.4.2 " /> <id nullFlavor="NA" /> <code codeSystem="local" code= "GLUMON" displayName="GLUCOSE (POC)" /> <statusCode code="completed" / > <effectiveTime value="432904746200" /> <value unit="mg/dL" xsi:type="PQ" value="97" /> <referenceRange> < observationRange> <text>70-99</text> </observationRange > </referenceRange> </observation> </component> </ organizer> </entry> <entry> <organizer moodCode="EVN" classCode="BATTERY"> <templateId root="840.1.716813.01.28.22.4.1" /> <id nullFlavor= "NA" /> <code codeSystem="local" code="GLUMON" displayName="GLUCOSE (POC)" /> <statusCode code="completed" /> <component> <observation moodCode="EVN" classCode="OBS"> <templateId root= "840.1.066533.01.28.22.4.2" /> <id nullFlavor="NA" /> < code codeSystem="local" code="GLUMON" displayName="GLUCOSE (POC)" /> < statusCode code="completed" /> <effectiveTime value="635613564370" /> <value unit="mg/dL" xsi:type="PQ" value="101" /> < interpretationCode codeSystem="local" code="*" /> <referenceRange> <observationRange> <text>70-99</text> </ observationRange> </referenceRange> </observation> </ component> </organizer> </entry> <entry> <organizer moodCode="EVN" classCode="BATTERY"> <templateId root="16.840.1.431207.10..22.4.1" /> <id nullFlavor="NA" /> <code codeSystem="local" code="GLUMON" displayName="GLUCOSE (POC)" /> <statusCode code="completed" /> < component> <observation moodCode="EVN" classCode="OBS"> < templateId root="216.840.1.692840.10..22.4.2" /> <id nullFlavor="NA " /> <code codeSystem="local" code="GLUMON" displayName="GLUCOSE (POC) " /> <statusCode code="completed" /> <effectiveTime value= "921956590057" /> <value unit="mg/dL" xsi:type="PQ" value="103" /> <interpretationCode codeSystem="local" code="*" /> < referenceRange> <observationRange> <text>70-99</text> </observationRange> </referenceRange> </observation> </component> </organizer> </entry> <entry> <organizer moodCode="EVN " classCode="BATTERY"> <templateId root="16.840.1.464081.10...4.1" / > <id nullFlavor="NA" /> <code codeSystem="local" code="GLUMON" displayName="GLUCOSE (POC)" /> <statusCode code="completed" /> < component> <observation moodCode="EVN" classCode="OBS"> < templateId root="216.840.1.885590.10.20.22.4.2" /> <id nullFlavor="NA " /> <code codeSystem="local" code="GLUMON" displayName="GLUCOSE (POC) " /> <statusCode code="completed" /> <effectiveTime value= "662880511268" /> <value unit="mg/dL" xsi:type="PQ" value="111" /> <interpretationCode codeSystem="local" code="*" /> < referenceRange> <observationRange> <text>70-99</text> </observationRange> </referenceRange> </observation> </component> </organizer> </entry> <entry> <organizer moodCode="EVN " classCode="BATTERY"> <templateId root="2.16.840.1.336886.10.20.22.4.1" / > <id nullFlavor="NA" /> <code codeSystem="local" code="PTTH" displayName="PTT HEPARIN PROTOCOLS" /> <statusCode code="completed" /> <component> <observation moodCode="EVN" classCode="OBS"> < templateId root="2.16.840.1.383882.10.20.22.4.2" /> <id nullFlavor="NA " /> <code codeSystem="local" code="PTT" displayName="PARTIAL THROMBOPLASTIN TIME" /> <statusCode code="completed" /> < effectiveTime value="093379314681" /> <value unit="sec" xsi:type="PQ" value="39" /> <referenceRange> <observationRange> <text>23-39</text> </observationRange> </referenceRange > </observation> </component> </organizer> </entry> <entry> <organizer moodCode="EVN" classCode="BATTERY"> <templateId root= "05.27.840.1.481365.10..22.4.1" /> <id nullFlavor="NA" /> <code codeSystem="local" code="CREATT" displayName="CREATININE" /> <statusCode code="completed" /> <component> <observation moodCode="EVN" classCode="OBS"> <templateId root="216.840.1.547790.10..4.2" /> <id nullFlavor="NA" /> <code codeSystem="local" code="eGFR" displayName="EST GFR (MDRD)" /> <statusCode code="completed" /> <effectiveTime value="208266408848" /> <value unit="mL/min" xsi:type ="PQ" value="> 60" /> <referenceRange> <observationRange > <text>> 59</text> </observationRange> </ referenceRange> </observation> </component> <component> <observation moodCode="EVN" classCode="OBS"> <templateId root= "216.840.1.885265.10..4.2" /> <id nullFlavor="NA" /> < code codeSystem="local" code="CREAT" displayName="CREATININE" /> < statusCode code="completed" /> <effectiveTime value="920204897969" /> <value unit="mg/dL" xsi:type="PQ" value="0.5" /> < interpretationCode codeSystem="local" code="*" /> <referenceRange> <observationRange> <text>0.6-1.0</text> </ observationRange> </referenceRange> </observation> </ component> </organizer> </entry> <entry> <organizer moodCode="EVN" classCode="BATTERY"> <templateId root="[id number]" /> <id nullFlavor="NA" /> <code codeSystem="local" code="GLUMON" displayName="GLUCOSE (POC)" /> <statusCode code="completed" /> < component> <observation moodCode="EVN" classCode="OBS"> < templateId root="[id number]" /> <id nullFlavor="NA " /> <code codeSystem="local" code="GLUMON" displayName="GLUCOSE (POC) " /> <statusCode code="completed" /> <effectiveTime value= "[id number]" /> <value unit="mg/dL" xsi:type="PQ" value="108" /> <interpretationCode codeSystem="local" code="*" /> < referenceRange> <observationRange> <text>70-99</text> </observationRange> </referenceRange> </observation> </component> </organizer> </entry> <entry> <organizer moodCode="EVN " classCode="BATTERY"> <templateId root="840.1.327284.01.28.22.4.1" / > <id nullFlavor="NA" /> <code codeSystem="local" code="GLUMON" displayName="GLUCOSE (POC)" /> <statusCode code="completed" /> < component> <observation moodCode="EVN" classCode="OBS"> < templateId root="840.1.694057.01.28.22.4.2" /> <id nullFlavor="NA " /> <code codeSystem="local" code="GLUMON" displayName="GLUCOSE (POC) " /> <statusCode code="completed" /> <effectiveTime value= "915821118309" /> <value unit="mg/dL" xsi:type="PQ" value="79" /> <referenceRange> <observationRange> <text>70-99</ text> </observationRange> </referenceRange> </ observation> </component> </organizer> </entry> <entry> <organizer moodCode="EVN" classCode="BATTERY"> <templateId root= "05.27.840.1.686846.10..22.4.1" /> <id nullFlavor="NA" /> <code codeSystem="local" code="GLUMON" displayName="GLUCOSE (POC)" /> < statusCode code="completed" /> <component> <observation moodCode= "EVN" classCode="OBS"> <templateId root="05.27.840.1.880404.22.4.2 " /> <id nullFlavor="NA" /> <code codeSystem="local" code= "GLUMON" displayName="GLUCOSE (POC)" /> <statusCode code="completed" / > <effectiveTime value="[id number]" /> <value unit="mg/dL" xsi:type="PQ" value="109" /> <interpretationCode codeSystem="local" code="*" /> <referenceRange> <observationRange> <text>70-99</text> </observationRange> </referenceRange> </observation> </component> </organizer> </entry> <entry> < organizer moodCode="EVN" classCode="BATTERY"> <templateId root= "05.27.840.1.608013.22.4.1" /> <id nullFlavor="NA" /> <code codeSystem="local" code="GLUMON" displayName="GLUCOSE (POC)" /> < statusCode code="completed" /> <component> <observation moodCode= "EVN" classCode="OBS"> <templateId root="05.27.840.1.836647.01.28.22.4.2 " /> <id nullFlavor="NA" /> <code codeSystem="local" code= "GLUMON" displayName="GLUCOSE (POC)" /> <statusCode code="completed" / > <effectiveTime value="669310031115" /> <value unit="mg/dL" xsi:type="PQ" value="86" /> <referenceRange> < observationRange> <text>70-99</text> </observationRange > </referenceRange> </observation> </component> </ organizer> </entry> <entry> <organizer moodCode="EVN" classCode="BATTERY"> <templateId root="216.840.1.367085.10..22.4.1" /> <id nullFlavor= "NA" /> <code codeSystem="local" code="GLUMON" displayName="GLUCOSE (POC)" /> <statusCode code="completed" /> <component> <observation moodCode="EVN" classCode="OBS"> <templateId root= "216.840.1.111429.10..22.4.2" /> <id nullFlavor="NA" /> < code codeSystem="local" code="GLUMON" displayName="GLUCOSE (POC)" /> < statusCode code="completed" /> <effectiveTime value="[id number]" /> <value unit="mg/dL" xsi:type="PQ" value="89" /> < referenceRange> <observationRange> <text>70-99</text> </observationRange> </referenceRange> </observation> </component> </organizer> </entry> <entry> <organizer moodCode="EVN " classCode="BATTERY"> <templateId root="16.840.1.341742.10..22.4.1" / > <id nullFlavor="NA" /> <code codeSystem="local" code="GLUMON" displayName="GLUCOSE (POC)" /> <statusCode code="completed" /> < component> <observation moodCode="EVN" classCode="OBS"> < templateId root="16.840.1.803355.10..22.4.2" /> <id nullFlavor="NA " /> <code codeSystem="local" code="GLUMON" displayName="GLUCOSE (POC) " /> <statusCode code="completed" /> <effectiveTime value= "696546503320" /> <value unit="mg/dL" xsi:type="PQ" value="104" /> <interpretationCode codeSystem="local" code="*" /> < referenceRange> <observationRange> <text>70-99</text> </observationRange> </referenceRange> </observation> </component> </organizer> </entry> <entry> <organizer moodCode="EVN " classCode="BATTERY"> <templateId root="16.840.1.916124.10..22.4.1" / > <id nullFlavor="NA" /> <code codeSystem="local" code="GLUMON" displayName="GLUCOSE (POC)" /> <statusCode code="completed" /> < component> <observation moodCode="EVN" classCode="OBS"> < templateId root="05.27.840.1.183075.10..22.4.2" /> <id nullFlavor="NA " /> <code codeSystem="local" code="GLUMON" displayName="GLUCOSE (POC) " /> <statusCode code="completed" /> <effectiveTime value= "378132110045" /> <value unit="mg/dL" xsi:type="PQ" value="95" /> <referenceRange> <observationRange> <text>70-99</ text> </observationRange> </referenceRange> </ observation> </component> </organizer> </entry> <entry> <organizer moodCode="EVN" classCode="BATTERY"> <templateId root= "216.840.1.753890.10..22.4.1" /> <id nullFlavor="NA" /> <code codeSystem="local" code="METAB" displayName="METABOLIC PANEL, BASIC" /> < statusCode code="completed" /> <component> <observation moodCode= "EVN" classCode="OBS"> <templateId root="216.840.1.861532....4.2 " /> <id nullFlavor="NA" /> <code codeSystem="local" code="K" displayName="POTASSIUM" /> <statusCode code="completed" /> < effectiveTime value="" /> <value unit="mmol/L" xsi:type="PQ " value="3.9" /> <referenceRange> <observationRange> <text>3.5-5.3</text> </observationRange> </ referenceRange> </observation> </component> <component> <observation moodCode="EVN" classCode="OBS"> <templateId root= "216.840.1.915141.10...4.2" /> <id nullFlavor="NA" /> < code codeSystem="local" code="eGFR" displayName="EST GFR (MDRD)" /> < statusCode code="completed" /> <effectiveTime value="" /> <value unit="mL/min" xsi:type="PQ" value="> 60" /> < referenceRange> <observationRange> <text>> 59</text> </observationRange> </referenceRange> </observation > </component> <component> <observation moodCode="EVN" classCode="OBS"> <templateId root="216.840.1.621255.10.20.22.4.2" /> <id nullFlavor="NA" /> <code codeSystem="local" code="GAP" displayName="ANION GAP" /> <statusCode code="completed" /> < effectiveTime value="" /> <value unit="mmol/L" xsi:type="PQ " value="11" /> <referenceRange> <observationRange> <text>5-15</text> </observationRange> </referenceRange > </observation> </component> <component> <observation moodCode="EVN" classCode="OBS"> <templateId root= "216.840.1.588082.10...4.2" /> <id nullFlavor="NA" /> < code codeSystem="local" code="eCrCl" displayName="EST CrCl (CG)" /> < statusCode code="completed" /> <effectiveTime value="" /> <value unit="mL/min" xsi:type="PQ" value="> 60" /> < referenceRange> <observationRange> <text>> 59</text> </observationRange> </referenceRange> </observation > </component> <component> <observation moodCode="EVN" classCode="OBS"> <templateId root="16.840.1.008286.10..22.4.2" /> <id nullFlavor="NA" /> <code codeSystem="local" code="GLU" displayName="GLUCOSE" /> <statusCode code="completed" /> < effectiveTime value="" /> <value unit="mg/dL" xsi:type="PQ " value="96" /> <referenceRange> <observationRange> <text>70-99</text> </observationRange> </ referenceRange> </observation> </component> <component> <observation moodCode="EVN" classCode="OBS"> <templateId root= "16.840.1.304150.10.2022.4.2" /> <id nullFlavor="NA" /> < code codeSystem="local" code="CA" displayName="CALCIUM" /> <statusCode code="completed" /> <effectiveTime value="" /> < value unit="mg/dL" xsi:type="PQ" value="8.2" /> <interpretationCode codeSystem="local" code="*" /> <referenceRange> < observationRange> <text>8.5-10.1</text> </ observationRange> </referenceRange> </observation> </ component> <component> <observation moodCode="EVN" classCode="OBS"> <templateId root="05.27.840.1.702154..22.4.2" /> <id nullFlavor="NA" /> <code codeSystem="local" code="BUN" displayName= "BLOOD UREA NITROGEN" /> <statusCode code="completed" /> < effectiveTime value="" /> <value unit="mg/dL" xsi:type="PQ " value="5" /> <interpretationCode codeSystem="local" code="*" /> <referenceRange> <observationRange> <text>7-20</ text> </observationRange> </referenceRange> </ observation> </component> <component> <observation moodCode= "EVN" classCode="OBS"> <templateId root="05.27.840.1.573432.10.20.22.4.2 " /> <id nullFlavor="NA" /> <code codeSystem="local" code= "CREAT" displayName="CREATININE" /> <statusCode code="completed" /> <effectiveTime value="" /> <value unit="mg/dL" xsi: type="PQ" value="0.6" /> <referenceRange> <observationRange > <text>0.6-1.0</text> </observationRange> </ referenceRange> </observation> </component> <component> <observation moodCode="EVN" classCode="OBS"> <templateId root= "05.27.840.1.104694.10..22.4.2" /> <id nullFlavor="NA" /> < code codeSystem="local" code="NA" displayName="SODIUM" /> <statusCode code="completed" /> <effectiveTime value="" /> < value unit="mmol/L" xsi:type="PQ" value="139" /> <referenceRange> <observationRange> <text>135-148</text> </ observationRange> </referenceRange> </observation> </ component> <component> <observation moodCode="EVN" classCode="OBS"> <templateId root="05.27.840.1.426840.10...4.2" /> <id nullFlavor="NA" /> <code codeSystem="local" code="CL" displayName= "CHLORIDE" /> <statusCode code="completed" /> <effectiveTime value="" /> <value unit="mmol/L" xsi:type="PQ" value="105" /> <referenceRange> <observationRange> <text>98 -110</text> </observationRange> </referenceRange> </ observation> </component> <component> <observation moodCode= "EVN" classCode="OBS"> <templateId root="16.840.1.928652.10.22.4.2 " /> <id nullFlavor="NA" /> <code codeSystem="local" code="CO2 " displayName="CARBON DIOXIDE" /> <statusCode code="completed" /> <effectiveTime value="" /> <value unit="mmol/L" xsi: type="PQ" value="23" /> <referenceRange> <observationRange> <text>21-32</text> </observationRange> </ referenceRange> </observation> </component> </organizer> </entry > <entry> <organizer moodCode="EVN" classCode="BATTERY"> <templateId root="216.840.1.324656.10...4.1" /> <id nullFlavor="NA" /> <code codeSystem="local" code="CBC" displayName="CBC" /> <statusCode code= "completed" /> <component> <observation moodCode="EVN" classCode= "OBS"> <templateId root="216.840.1.756318.10...4.2" /> < id nullFlavor="NA" /> <code codeSystem="local" code="CBCCOM" displayName="COMMENT" /> <statusCode code="completed" /> < effectiveTime value="" /> <value unit="" xsi:type="PQ" value="REVIEWED" /> <referenceRange> <observationRange> <text /> </observationRange> </referenceRange> </observation> </component> <component> <observation moodCode="EVN" classCode="OBS"> <templateId root= "216.840.1.761542.10...4.2" /> <id nullFlavor="NA" /> < code codeSystem="local" code="MCH" displayName="MEAN CELL HGB" /> < statusCode code="completed" /> <effectiveTime value="" /> <value unit="pg" xsi:type="PQ" value="25.0" /> < interpretationCode codeSystem="local" code="*" /> <referenceRange> <observationRange> <text>27.0-33.0</text> </ observationRange> </referenceRange> </observation> </ component> <component> <observation moodCode="EVN" classCode="OBS"> <templateId root="840.1.387970.10.2022.4.2" /> <id nullFlavor="NA" /> <code codeSystem="local" code="MCHC" displayName= "MEAN CELL HGB CONCENTRATION" /> <statusCode code="completed" /> <effectiveTime value="" /> <value unit="g/dL" xsi:type= "PQ" value="29.9" /> <interpretationCode codeSystem="local" code="*" / > <referenceRange> <observationRange> <text> 32.0-37.0</text> </observationRange> </referenceRange> </observation> </component> <component> <observation moodCode="EVN" classCode="OBS"> <templateId root= "840.1.165516.10..22.4.2" /> <id nullFlavor="NA" /> < code codeSystem="local" code="MCV" displayName="MEAN CELL VOLUME" /> < statusCode code="completed" /> <effectiveTime value="" /> <value unit="fl" xsi:type="PQ" value="83.6" /> <referenceRange > <observationRange> <text>80.0-100.0</text> </observationRange> </referenceRange> </observation> </ component> <component> <observation moodCode="EVN" classCode="OBS"> <templateId root="840.1.949524.10..22.4.2" /> <id nullFlavor="NA" /> <code codeSystem="local" code="RBC" displayName=" RED BLOOD CELL" /> <statusCode code="completed" /> < effectiveTime value="" /> <value unit="m/cumm" xsi:type="PQ " value="3.04" /> <interpretationCode codeSystem="local" code="*" /> <referenceRange> <observationRange> <text>4.00- 6.00</text> </observationRange> </referenceRange> </ observation> </component> <component> <observation moodCode= "EVN" classCode="OBS"> <templateId root="840.1.058190.10.22.4.2 " /> <id nullFlavor="NA" /> <code codeSystem="local" code="RDW " displayName="RED CELL DISTRIBUTION WIDTH" /> <statusCode code= "completed" /> <effectiveTime value="" /> <value unit="%" xsi:type="PQ" value="16.2" /> <interpretationCode codeSystem="local" code="*" /> <referenceRange> < observationRange> <text>11.0-15.6</text> </ observationRange> </referenceRange> </observation> </ component> <component> <observation moodCode="EVN" classCode="OBS"> <templateId root="05.27.840.1.265167.10.20.22.4.2" /> <id nullFlavor="NA" /> <code codeSystem="local" code="WBC" displayName= "WHITE BLOOD CELL" /> <statusCode code="completed" /> < effectiveTime value="" /> <value unit="k/cumm" xsi:type="PQ " value="4.7" /> <interpretationCode codeSystem="local" code="*" /> <referenceRange> <observationRange> <text>5.0- 10.0</text> </observationRange> </referenceRange> </ observation> </component> <component> <observation moodCode= "EVN" classCode="OBS"> <templateId root="216.840.1.475139.01.28.22.4.2 " /> <id nullFlavor="NA" /> <code codeSystem="local" code= "HGBT" displayName="HEMOGLOBIN" /> <statusCode code="completed" /> <effectiveTime value="692031858329" /> <value unit="gm/dL" xsi: type="PQ" value="7.6" /> <interpretationCode codeSystem="local" code="* " /> <referenceRange> <observationRange> <text> 12.0-16.0</text> </observationRange> </referenceRange> </observation> </component> <component> <observation moodCode="EVN" classCode="OBS"> <templateId root= "16.840.1.216440.01.28.22.4.2" /> <id nullFlavor="NA" /> < code codeSystem="local" code="HCTT" displayName="HEMATOCRIT" /> < statusCode code="completed" /> <effectiveTime value="" /> <value unit="%" xsi:type="PQ" value="25.4" /> < interpretationCode codeSystem="local" code="*" /> <referenceRange> <observationRange> <text>37.0-47.0</text> </ observationRange> </referenceRange> </observation> </ component> <component> <observation moodCode="EVN" classCode="OBS"> <templateId root="05.27.840.1.657824.10..4.2" /> <id nullFlavor="NA" /> <code codeSystem="local" code="PLT" displayName= "PLATELET COUNT" /> <statusCode code="completed" /> < effectiveTime value="210698542688" /> <value unit="k/cumm" xsi:type="PQ " value="Note" /> <referenceRange> <observationRange> <text>150-400</text> </observationRange> </ referenceRange> </observation> </component> </organizer> </entry > <entry> <organizer moodCode="EVN" classCode="BATTERY"> <templateId root="05.27.840.1.346190.10..4.1" /> <id nullFlavor="NA" /> <code codeSystem="local" code="UA" displayName="URINALYSIS, ROUTINE" /> < statusCode code="completed" /> <component> <observation moodCode= "EVN" classCode="OBS"> <templateId root="05.27.840.1.342632.10...4.2 " /> <id nullFlavor="NA" /> <code codeSystem="local" code= "LEUESU" displayName="UA LEUKOCYTE ESTERASE DIPSTICK" /> <statusCode code="completed" /> <effectiveTime value="379583844277" /> < value unit="" xsi:type="PQ" value="NEGATIVE" /> <referenceRange> <observationRange> <text>NEGATIVE</text> </ observationRange> </referenceRange> </observation> </ component> <component> <observation moodCode="EVN" classCode="OBS"> <templateId root="05.27.840.1.926196.10...4.2" /> <id nullFlavor="NA" /> <code codeSystem="local" code="NITRIU" displayName= "UA NITRITE DIPSTICK" /> <statusCode code="completed" /> < effectiveTime value="" /> <value unit="" xsi:type="PQ" value="NEGATIVE" /> <referenceRange> <observationRange> <text>NEGATIVE</text> </observationRange> </ referenceRange> </observation> </component> <component> <observation moodCode="EVN" classCode="OBS"> <templateId root= "05.27.840.1.199358...4.2" /> <id nullFlavor="NA" /> < code codeSystem="local" code="PROTEIU" displayName="UA PROTEIN DIPSTICK" /> <statusCode code="completed" /> <effectiveTime value= "" /> <value unit="" xsi:type="PQ" value="NEGATIVE" /> <referenceRange> <observationRange> <text>NEGATIVE </text> </observationRange> </referenceRange> </ observation> </component> <component> <observation moodCode= "EVN" classCode="OBS"> <templateId root="05.27.840.1.203217.01.28.22.4.2 " /> <id nullFlavor="NA" /> <code codeSystem="local" code= "DGLUU" displayName="UA GLUCOSE DIPSTICK" /> <statusCode code= "completed" /> <effectiveTime value="" /> <value unit="" xsi:type="PQ" value="NEGATIVE" /> <referenceRange> < observationRange> <text>NEGATIVE</text> </ observationRange> </referenceRange> </observation> </ component> <component> <observation moodCode="EVN" classCode="OBS"> <templateId root="05.27.840.1.197641.01.28.22.4.2" /> <id nullFlavor="NA" /> <code codeSystem="local" code="KETONU" displayName= "UA KETONE DIPSTICK" /> <statusCode code="completed" /> < effectiveTime value="" /> <value unit="" xsi:type="PQ" value="2+" /> <interpretationCode codeSystem="local" code="*" /> <referenceRange> <observationRange> <text>NEGATIVE</ text> </observationRange> </referenceRange> </ observation> </component> <component> <observation moodCode= "EVN" classCode="OBS"> <templateId root="216.840.1.760880.01.28.224.2 " /> <id nullFlavor="NA" /> <code codeSystem="local" code= "UROBILU" displayName="UA UROBILINOGEN DIPSTICK" /> <statusCode code= "completed" /> <effectiveTime value="" /> <value unit="" xsi:type="PQ" value="2+" /> <interpretationCode codeSystem= "local" code="*" /> <referenceRange> <observationRange> <text>NORMAL</text> </observationRange> </ referenceRange> </observation> </component> <component> <observation moodCode="EVN" classCode="OBS"> <templateId root= "16.840.1.319342.01.28.22.4.2" /> <id nullFlavor="NA" /> < code codeSystem="local" code="BILU" displayName="UA BILIRUBIN DIPSTICK" /> <statusCode code="completed" /> <effectiveTime value=" " /> <value unit="" xsi:type="PQ" value="NEGATIVE" /> < referenceRange> <observationRange> <text>NEGATIVE</text > </observationRange> </referenceRange> </observation > </component> <component> <observation moodCode="EVN" classCode="OBS"> <templateId root="216.840.1.904491.10.4.2" /> <id nullFlavor="NA" /> <code codeSystem="local" code="MAKENZIE" displayName="UA BLOOD DIPSTICK" /> <statusCode code="completed" /> <effectiveTime value="" /> <value unit="" xsi:type= "PQ" value="NEGATIVE" /> <referenceRange> <observationRange > <text>NEGATIVE</text> </observationRange> </ referenceRange> </observation> </component> <component> <observation moodCode="EVN" classCode="OBS"> <templateId root= "216.840.1.526502.01.28.224.2" /> <id nullFlavor="NA" /> < code codeSystem="local" code="SPGRU" displayName="UA SPECIFIC GRAVITY" /> <statusCode code="completed" /> <effectiveTime value=" " /> <value unit="" xsi:type="PQ" value="1.021" /> < referenceRange> <observationRange> <text>1.015-1.025</ text> </observationRange> </referenceRange> </ observation> </component> <component> <observation moodCode= "EVN" classCode="OBS"> <templateId root="216.840.1.427281...4.2 " /> <id nullFlavor="NA" /> <code codeSystem="local" code="SEBLE " displayName="UR PH" /> <statusCode code="completed" /> < effectiveTime value="" /> <value unit="" xsi:type="PQ" value="6.0" /> <referenceRange> <observationRange> <text>5.0-7.0</text> </observationRange> </ referenceRange> </observation> </component> </organizer> </entry > <entry> <organizer moodCode="EVN" classCode="BATTERY"> <templateId root="16.840.1.027177.10..22.4.1" /> <id nullFlavor="NA" /> <code codeSystem="local" code="GLUMON" displayName="GLUCOSE (POC)" /> < statusCode code="completed" /> <component> <observation moodCode= "EVN" classCode="OBS"> <templateId root="05.27.840.1.928503.10...4.2 " /> <id nullFlavor="NA" /> <code codeSystem="local" code= "GLUMON" displayName="GLUCOSE (POC)" /> <statusCode code="completed" / > <effectiveTime value="879485791712" /> <value unit="mg/dL" xsi:type="PQ" value="90" /> <referenceRange> < observationRange> <text>70-99</text> </observationRange > </referenceRange> </observation> </component> </ organizer> </entry> <entry> <organizer moodCode="EVN" classCode="BATTERY"> <templateId root="16.840.1.526296.10...4.1" /> <id nullFlavor= "NA" /> <code codeSystem="local" code="GLUMON" displayName="GLUCOSE (POC)" /> <statusCode code="completed" /> <component> <observation moodCode="EVN" classCode="OBS"> <templateId root= "05.27.840.1.919028.10..4.2" /> <id nullFlavor="NA" /> < code codeSystem="local" code="GLUMON" displayName="GLUCOSE (POC)" /> < statusCode code="completed" /> <effectiveTime value="922794985159" /> <value unit="mg/dL" xsi:type="PQ" value="109" /> < interpretationCode codeSystem="local" code="*" /> <referenceRange> <observationRange> <text>70-99</text> </ observationRange> </referenceRange> </observation> </ component> </organizer> </entry> <entry> <organizer moodCode="EVN" classCode="BATTERY"> <templateId root="216.840.1.910067.10..4.1" /> <id nullFlavor="NA" /> <code codeSystem="local" code="GLUMON" displayName="GLUCOSE (POC)" /> <statusCode code="completed" /> < component> <observation moodCode="EVN" classCode="OBS"> < templateId root="216.840.1.878597.10..22.4.2" /> <id nullFlavor="NA " /> <code codeSystem="local" code="GLUMON" displayName="GLUCOSE (POC) " /> <statusCode code="completed" /> <effectiveTime value= "810265954656" /> <value unit="mg/dL" xsi:type="PQ" value="89" /> <referenceRange> <observationRange> <text>70-99</ text> </observationRange> </referenceRange> </ observation> </component> </organizer> </entry> <entry> <organizer moodCode="EVN" classCode="BATTERY"> <templateId root= "216.840.1.426750.10..4.1" /> <id nullFlavor="NA" /> <code codeSystem="local" code="GLUMON" displayName="GLUCOSE (POC)" /> < statusCode code="completed" /> <component> <observation moodCode= "EVN" classCode="OBS"> <templateId root="16.840.1.772215.10..22.4.2 " /> <id nullFlavor="NA" /> <code codeSystem="local" code= "GLUMON" displayName="GLUCOSE (POC)" /> <statusCode code="completed" / > <effectiveTime value="643614043193" /> <value unit="mg/dL" xsi:type="PQ" value="102" /> <interpretationCode codeSystem="local" code="*" /> <referenceRange> <observationRange> <text>70-99</text> </observationRange> </referenceRange> </observation> </component> </organizer> </entry> <entry> < organizer moodCode="EVN" classCode="BATTERY"> <templateId root= "05.27.840.1.986732.10..4.1" /> <id nullFlavor="NA" /> <code codeSystem="local" code="GLUMON" displayName="GLUCOSE (POC)" /> < statusCode code="completed" /> <component> <observation moodCode= "EVN" classCode="OBS"> <templateId root="05.27.840.1.351206.10..22.4.2 " /> <id nullFlavor="NA" /> <code codeSystem="local" code= "GLUMON" displayName="GLUCOSE (POC)" /> <statusCode code="completed" / > <effectiveTime value="191029047271" /> <value unit="mg/dL" xsi:type="PQ" value="100" /> <interpretationCode codeSystem="local" code="*" /> <referenceRange> <observationRange> <text>70-99</text> </observationRange> </referenceRange> </observation> </component> </organizer> </entry> <entry> < organizer moodCode="EVN" classCode="BATTERY"> <templateId root= "16.840.1.700961.10...4.1" /> <id nullFlavor="NA" /> <code codeSystem="local" code="GLUMON" displayName="GLUCOSE (POC)" /> < statusCode code="completed" /> <component> <observation moodCode= "EVN" classCode="OBS"> <templateId root="05.27.840.1.716783.01.28.22.4.2 " /> <id nullFlavor="NA" /> <code codeSystem="local" code= "GLUMON" displayName="GLUCOSE (POC)" /> <statusCode code="completed" / > <effectiveTime value="712723361678" /> <value unit="mg/dL" xsi:type="PQ" value="104" /> <interpretationCode codeSystem="local" code="*" /> <referenceRange> <observationRange> <text>70-99</text> </observationRange> </referenceRange> </observation> </component> </organizer> </entry> <entry> < organizer moodCode="EVN" classCode="BATTERY"> <templateId root= "05.27.840.1.976922.10.4.1" /> <id nullFlavor="NA" /> <code codeSystem="local" code="GLUMON" displayName="GLUCOSE (POC)" /> < statusCode code="completed" /> <component> <observation moodCode= "EVN" classCode="OBS"> <templateId root="05.27.840.1.409559.01.28.22.4.2 " /> <id nullFlavor="NA" /> <code codeSystem="local" code= "GLUMON" displayName="GLUCOSE (POC)" /> <statusCode code="completed" / > <effectiveTime value="[id number]" /> <value unit="mg/dL" xsi:type="PQ" value="102" /> <interpretationCode codeSystem="local" code="*" /> <referenceRange> <observationRange> <text>70-99</text> </observationRange> </referenceRange> </observation> </component> </organizer> </entry> <entry> < organizer moodCode="EVN" classCode="BATTERY"> <templateId root= "216.840.1.250745.10..22.4.1" /> <id nullFlavor="NA" /> <code codeSystem="local" code="GLUMON" displayName="GLUCOSE (POC)" /> < statusCode code="completed" /> <component> <observation moodCode= "EVN" classCode="OBS"> <templateId root="2.16.840.1.835894.10.20.22.4.2 " /> <id nullFlavor="NA" /> <code codeSystem="local" code= "GLUMON" displayName="GLUCOSE (POC)" /> <statusCode code="completed" / > <effectiveTime value="167409169343" /> <value unit="mg/dL" xsi:type="PQ" value="102" /> <interpretationCode codeSystem="local" code="*" /> <referenceRange> <observationRange> <text>70-99</text> </observationRange> </referenceRange> </observation> </component> </organizer> </entry> <entry> < organizer moodCode="EVN" classCode="BATTERY"> <templateId root= "840.1.689002.10..22.4.1" /> <id nullFlavor="NA" /> <code codeSystem="local" code="METAB" displayName="METABOLIC PANEL, BASIC" /> < statusCode code="completed" /> <component> <observation moodCode= "EVN" classCode="OBS"> <templateId root="840.1.005993.01.28.22.4.2 " /> <id nullFlavor="NA" /> <code codeSystem="local" code="K" displayName="POTASSIUM" /> <statusCode code="completed" /> < effectiveTime value="[id number]" /> <value unit="mmol/L" xsi:type="PQ " value="4.0" /> <referenceRange> <observationRange> <text>3.5-5.3</text> </observationRange> </ referenceRange> </observation> </component> <component> <observation moodCode="EVN" classCode="OBS"> <templateId root= "840.1.936368.01.28.22.4.2" /> <id nullFlavor="NA" /> < code codeSystem="local" code="eGFR" displayName="EST GFR (MDRD)" /> < statusCode code="completed" /> <effectiveTime value="376585945999" /> <value unit="mL/min" xsi:type="PQ" value="> 60" /> < referenceRange> <observationRange> <text>> 59</text> </observationRange> </referenceRange> </observation > </component> <component> <observation moodCode="EVN" classCode="OBS"> <templateId root="05.27.840.1.408568...4.2" /> <id nullFlavor="NA" /> <code codeSystem="local" code="GAP" displayName="ANION GAP" /> <statusCode code="completed" /> < effectiveTime value="" /> <value unit="mmol/L" xsi:type="PQ " value="6" /> <referenceRange> <observationRange> <text>5-15</text> </observationRange> </referenceRange > </observation> </component> <component> <observation moodCode="EVN" classCode="OBS"> <templateId root= "216.840.1.399031.10...4.2" /> <id nullFlavor="NA" /> < code codeSystem="local" code="eCrCl" displayName="EST CrCl (CG)" /> < statusCode code="completed" /> <effectiveTime value="" /> <value unit="mL/min" xsi:type="PQ" value="> 60" /> < referenceRange> <observationRange> <text>> 59</text> </observationRange> </referenceRange> </observation > </component> <component> <observation moodCode="EVN" classCode="OBS"> <templateId root="216.840.1.104538.10...4.2" /> <id nullFlavor="NA" /> <code codeSystem="local" code="GLU" displayName="GLUCOSE" /> <statusCode code="completed" /> < effectiveTime value="" /> <value unit="mg/dL" xsi:type="PQ " value="96" /> <referenceRange> <observationRange> <text>70-99</text> </observationRange> </ referenceRange> </observation> </component> <component> <observation moodCode="EVN" classCode="OBS"> <templateId root= "16.840.1.784634.22.4.2" /> <id nullFlavor="NA" /> < code codeSystem="local" code="CA" displayName="CALCIUM" /> <statusCode code="completed" /> <effectiveTime value="" /> < value unit="mg/dL" xsi:type="PQ" value="8.1" /> <interpretationCode codeSystem="local" code="*" /> <referenceRange> < observationRange> <text>8.5-10.1</text> </ observationRange> </referenceRange> </observation> </ component> <component> <observation moodCode="EVN" classCode="OBS"> <templateId root="16.840.1.198376.22.4.2" /> <id nullFlavor="NA" /> <code codeSystem="local" code="BUN" displayName= "BLOOD UREA NITROGEN" /> <statusCode code="completed" /> < effectiveTime value="" /> <value unit="mg/dL" xsi:type="PQ " value="4" /> <interpretationCode codeSystem="local" code="*" /> <referenceRange> <observationRange> <text>7-20</ text> </observationRange> </referenceRange> </ observation> </component> <component> <observation moodCode= "EVN" classCode="OBS"> <templateId root="05.27.840.1.201396.10.22.4.2 " /> <id nullFlavor="NA" /> <code codeSystem="local" code= "CREAT" displayName="CREATININE" /> <statusCode code="completed" /> <effectiveTime value="" /> <value unit="mg/dL" xsi: type="PQ" value="0.5" /> <interpretationCode codeSystem="local" code="* " /> <referenceRange> <observationRange> <text> 0.6-1.0</text> </observationRange> </referenceRange> </observation> </component> <component> <observation moodCode= "EVN" classCode="OBS"> <templateId root="216.840.1.370544.10...4.2 " /> <id nullFlavor="NA" /> <code codeSystem="local" code="NA " displayName="SODIUM" /> <statusCode code="completed" /> < effectiveTime value="" /> <value unit="mmol/L" xsi:type="PQ " value="138" /> <referenceRange> <observationRange> <text>135-148</text> </observationRange> </ referenceRange> </observation> </component> <component> <observation moodCode="EVN" classCode="OBS"> <templateId root= "05.27.840.1.627865.10.4.2" /> <id nullFlavor="NA" /> < code codeSystem="local" code="CL" displayName="CHLORIDE" /> < statusCode code="completed" /> <effectiveTime value="" /> <value unit="mmol/L" xsi:type="PQ" value="107" /> < referenceRange> <observationRange> <text>98-110</text> </observationRange> </referenceRange> </observation> </component> <component> <observation moodCode="EVN" classCode ="OBS"> <templateId root="05.27.840.1.062560.10.4.2" /> < id nullFlavor="NA" /> <code codeSystem="local" code="CO2" displayName= "CARBON DIOXIDE" /> <statusCode code="completed" /> < effectiveTime value="011567917068" /> <value unit="mmol/L" xsi:type="PQ " value="25" /> <referenceRange> <observationRange> <text>21-32</text> </observationRange> </ referenceRange> </observation> </component> </organizer> </entry > <entry> <organizer moodCode="EVN" classCode="BATTERY"> <templateId root="05.27.840.1.947882.10.4.1" /> <id nullFlavor="NA" /> <code codeSystem="local" code="CBC" displayName="CBC" /> <statusCode code= "completed" /> <component> <observation moodCode="EVN" classCode= "OBS"> <templateId root="05.27.840.1.963855.10..4.2" /> < id nullFlavor="NA" /> <code codeSystem="local" code="MCH" displayName= "MEAN CELL HGB" /> <statusCode code="completed" /> < effectiveTime value="658024118285" /> <value unit="pg" xsi:type="PQ" value="25.4" /> <interpretationCode codeSystem="local" code="*" /> <referenceRange> <observationRange> <text>27.0- 33.0</text> </observationRange> </referenceRange> </ observation> </component> <component> <observation moodCode= "EVN" classCode="OBS"> <templateId root="05.27.840.1.152417.01.28.22.4.2 " /> <id nullFlavor="NA" /> <code codeSystem="local" code= "MCHC" displayName="MEAN CELL HGB CONCENTRATION" /> <statusCode code= "completed" /> <effectiveTime value="685640953404" /> <value unit="g/dL" xsi:type="PQ" value="30.0" /> <interpretationCode codeSystem="local" code="*" /> <referenceRange> < observationRange> <text>32.0-37.0</text> </ observationRange> </referenceRange> </observation> </ component> <component> <observation moodCode="EVN" classCode="OBS"> <templateId root="216.840.1.681613.22.4.2" /> <id nullFlavor="NA" /> <code codeSystem="local" code="MCV" displayName= "MEAN CELL VOLUME" /> <statusCode code="completed" /> < effectiveTime value="" /> <value unit="fl" xsi:type="PQ" value="84.6" /> <referenceRange> <observationRange> <text>80.0-100.0</text> </observationRange> </ referenceRange> </observation> </component> <component> <observation moodCode="EVN" classCode="OBS"> <templateId root= "216.840.1.735065.01.28.22.4.2" /> <id nullFlavor="NA" /> < code codeSystem="local" code="RBC" displayName="RED BLOOD CELL" /> < statusCode code="completed" /> <effectiveTime value="" /> <value unit="m/cumm" xsi:type="PQ" value="2.72" /> < interpretationCode codeSystem="local" code="*" /> <referenceRange> <observationRange> <text>4.00-6.00</text> </ observationRange> </referenceRange> </observation> </ component> <component> <observation moodCode="EVN" classCode="OBS"> <templateId root="216.840.1.639049.01.28.22.4.2" /> <id nullFlavor="NA" /> <code codeSystem="local" code="RDW" displayName=" RED CELL DISTRIBUTION WIDTH" /> <statusCode code="completed" /> <effectiveTime value="" /> <value unit="%" xsi:type= "PQ" value="16.4" /> <interpretationCode codeSystem="local" code="*" / > <referenceRange> <observationRange> <text> 11.0-15.6</text> </observationRange> </referenceRange> </observation> </component> <component> <observation moodCode="EVN" classCode="OBS"> <templateId root= "16.840.1.381691.01.28.22.4.2" /> <id nullFlavor="NA" /> < code codeSystem="local" code="WBC" displayName="WHITE BLOOD CELL" /> < statusCode code="completed" /> <effectiveTime value="" /> <value unit="k/cumm" xsi:type="PQ" value="3.9" /> < interpretationCode codeSystem="local" code="*" /> <referenceRange> <observationRange> <text>5.0-10.0</text> </ observationRange> </referenceRange> </observation> </ component> <component> <observation moodCode="EVN" classCode="OBS"> <templateId root="16.840.1.019758.10.22.4.2" /> <id nullFlavor="NA" /> <code codeSystem="local" code="HGBT" displayName= "HEMOGLOBIN" /> <statusCode code="completed" /> < effectiveTime value="" /> <value unit="gm/dL" xsi:type="PQ " value="6.9" /> <interpretationCode codeSystem="local" code="*" /> <referenceRange> <observationRange> <text>12.0- 16.0</text> </observationRange> </referenceRange> </ observation> </component> <component> <observation moodCode= "EVN" classCode="OBS"> <templateId root="2.16.840.1.943635.10..22.4.2 " /> <id nullFlavor="NA" /> <code codeSystem="local" code= "HCTT" displayName="HEMATOCRIT" /> <statusCode code="completed" /> <effectiveTime value="" /> <value unit="%" xsi: type="PQ" value="23.0" /> <interpretationCode codeSystem="local" code= "*" /> <referenceRange> <observationRange> < text>37.0-47.0</text> </observationRange> </referenceRange> </observation> </component> <component> <observation moodCode="EVN" classCode="OBS"> <templateId root= "216.840.1.450659.10..4.2" /> <id nullFlavor="NA" /> < code codeSystem="local" code="PLT" displayName="PLATELET COUNT" /> < statusCode code="completed" /> <effectiveTime value="" /> <value unit="k/cumm" xsi:type="PQ" value="349" /> < referenceRange> <observationRange> <text>150-400</text> </observationRange> </referenceRange> </observation > </component> </organizer> </entry> <entry> <organizer moodCode= "EVN" classCode="BATTERY"> <templateId root="2.16.840.1.679665.10..22.4.1 " /> <id nullFlavor="NA" /> <code codeSystem="local" code="GLUMON" displayName="GLUCOSE (POC)" /> <statusCode code="completed" /> < component> <observation moodCode="EVN" classCode="OBS"> < templateId root="16.840.1.703477.10..22.4.2" /> <id nullFlavor="NA " /> <code codeSystem="local" code="GLUMON" displayName="GLUCOSE (POC) " /> <statusCode code="completed" /> <effectiveTime value= "724362220942" /> <value unit="mg/dL" xsi:type="PQ" value="97" /> <referenceRange> <observationRange> <text>70-99</ text> </observationRange> </referenceRange> </ observation> </component> </organizer> </entry> <entry> <organizer moodCode="EVN" classCode="BATTERY"> <templateId root= "840.1.692281.10..22.4.1" /> <id nullFlavor="NA" /> <code codeSystem="local" code="GLUMON" displayName="GLUCOSE (POC)" /> < statusCode code="completed" /> <component> <observation moodCode= "EVN" classCode="OBS"> <templateId root="05.27.840.1.434695.10.22.4.2 " /> <id nullFlavor="NA" /> <code codeSystem="local" code= "GLUMON" displayName="GLUCOSE (POC)" /> <statusCode code="completed" / > <effectiveTime value="801392649275" /> <value unit="mg/dL" xsi:type="PQ" value="106" /> <interpretationCode codeSystem="local" code="*" /> <referenceRange> <observationRange> <text>70-99</text> </observationRange> </referenceRange> </observation> </component> </organizer> </entry> <entry> < organizer moodCode="EVN" classCode="BATTERY"> <templateId root= "16.840.1.577023.10...4.1" /> <id nullFlavor="NA" /> <code codeSystem="local" code="ADRIAN" displayName="FERRITIN" /> <statusCode code= "completed" /> <component> <observation moodCode="EVN" classCode= "OBS"> <templateId root="840.1.014878.01.28.22.4.2" /> < id nullFlavor="NA" /> <code codeSystem="local" code="ADRIAN" displayName= "FERRITIN" /> <statusCode code="completed" /> <effectiveTime value="993091939074" /> <value unit="ng/mL" xsi:type="PQ" value="124" / > <referenceRange> <observationRange> <text>8- 252</text> </observationRange> </referenceRange> </ observation> </component> </organizer> </entry> <entry> <organizer moodCode="EVN" classCode="BATTERY"> <templateId root= "05.27.840.1.015588.01.28.22.4.1" /> <id nullFlavor="NA" /> <code codeSystem="local" code="GLUMON" displayName="GLUCOSE (POC)" /> < statusCode code="completed" /> <component> <observation moodCode= "EVN" classCode="OBS"> <templateId root="16.840.1.713641.10..22.4.2 " /> <id nullFlavor="NA" /> <code codeSystem="local" code= "GLUMON" displayName="GLUCOSE (POC)" /> <statusCode code="completed" / > <effectiveTime value="630719607183" /> <value unit="mg/dL" xsi:type="PQ" value="93" /> <referenceRange> < observationRange> <text>70-99</text> </observationRange > </referenceRange> </observation> </component> </ organizer> </entry> <entry> <organizer moodCode="EVN" classCode="BATTERY"> <templateId root="216.840.1.157016.10.20.22.4.1" /> <id nullFlavor= "NA" /> <code codeSystem="local" code="GLUMON" displayName="GLUCOSE (POC)" /> <statusCode code="completed" /> <component> <observation moodCode="EVN" classCode="OBS"> <templateId root= "16.840.1.445396.10..22.4.2" /> <id nullFlavor="NA" /> < code codeSystem="local" code="GLUMON" displayName="GLUCOSE (POC)" /> < statusCode code="completed" /> <effectiveTime value="644674657837" /> <value unit="mg/dL" xsi:type="PQ" value="105" /> < interpretationCode codeSystem="local" code="*" /> <referenceRange> <observationRange> <text>70-99</text> </ observationRange> </referenceRange> </observation> </ component> </organizer> </entry> <entry> <organizer moodCode="EVN" classCode="BATTERY"> <templateId root="16.840.1.672857.10.20.22.4.1" /> <id nullFlavor="NA" /> <code codeSystem="local" code="CBC" displayName ="CBC" /> <statusCode code="completed" /> <component> < observation moodCode="EVN" classCode="OBS"> <templateId root= "16.840.1.919847.10.4.2" /> <id nullFlavor="NA" /> < code codeSystem="local" code="MCH" displayName="MEAN CELL HGB" /> < statusCode code="completed" /> <effectiveTime value="" /> <value unit="pg" xsi:type="PQ" value="25.1" /> < interpretationCode codeSystem="local" code="*" /> <referenceRange> <observationRange> <text>27.0-33.0</text> </ observationRange> </referenceRange> </observation> </ component> <component> <observation moodCode="EVN" classCode="OBS"> <templateId root="05.27.840.1.797365.01.28.224.2" /> <id nullFlavor="NA" /> <code codeSystem="local" code="MCHC" displayName= "MEAN CELL HGB CONCENTRATION" /> <statusCode code="completed" /> <effectiveTime value="" /> <value unit="g/dL" xsi:type= "PQ" value="30.4" /> <interpretationCode codeSystem="local" code="*" / > <referenceRange> <observationRange> <text> 32.0-37.0</text> </observationRange> </referenceRange> </observation> </component> <component> <observation moodCode="EVN" classCode="OBS"> <templateId root= "05.27.840.1.840907.01.28.22.4.2" /> <id nullFlavor="NA" /> < code codeSystem="local" code="MCV" displayName="MEAN CELL VOLUME" /> < statusCode code="completed" /> <effectiveTime value="" /> <value unit="fl" xsi:type="PQ" value="82.6" /> <referenceRange > <observationRange> <text>80.0-100.0</text> </observationRange> </referenceRange> </observation> </ component> <component> <observation moodCode="EVN" classCode="OBS"> <templateId root="216.840.1.643626.10..22.4.2" /> <id nullFlavor="NA" /> <code codeSystem="local" code="RBC" displayName=" RED BLOOD CELL" /> <statusCode code="completed" /> < effectiveTime value="" /> <value unit="m/cumm" xsi:type="PQ " value="3.11" /> <interpretationCode codeSystem="local" code="*" /> <referenceRange> <observationRange> <text>4.00- 6.00</text> </observationRange> </referenceRange> </ observation> </component> <component> <observation moodCode= "EVN" classCode="OBS"> <templateId root="2.16.840.1.755048.10..22.4.2 " /> <id nullFlavor="NA" /> <code codeSystem="local" code="RDW " displayName="RED CELL DISTRIBUTION WIDTH" /> <statusCode code= "completed" /> <effectiveTime value="" /> <value unit="%" xsi:type="PQ" value="15.9" /> <interpretationCode codeSystem="local" code="*" /> <referenceRange> < observationRange> <text>11.0-15.6</text> </ observationRange> </referenceRange> </observation> </ component> <component> <observation moodCode="EVN" classCode="OBS"> <templateId root="05.27.840.1.961622.10.20.22.4.2" /> <id nullFlavor="NA" /> <code codeSystem="local" code="WBC" displayName= "WHITE BLOOD CELL" /> <statusCode code="completed" /> < effectiveTime value="" /> <value unit="k/cumm" xsi:type="PQ " value="5.3" /> <referenceRange> <observationRange> <text>5.0-10.0</text> </observationRange> </ referenceRange> </observation> </component> <component> <observation moodCode="EVN" classCode="OBS"> <templateId root= "840.1.167861.10.2022.4.2" /> <id nullFlavor="NA" /> < code codeSystem="local" code="HGBT" displayName="HEMOGLOBIN" /> < statusCode code="completed" /> <effectiveTime value="" /> <value unit="gm/dL" xsi:type="PQ" value="7.8" /> < interpretationCode codeSystem="local" code="*" /> <referenceRange> <observationRange> <text>12.0-16.0</text> </ observationRange> </referenceRange> </observation> </ component> <component> <observation moodCode="EVN" classCode="OBS"> <templateId root="05.27.840.1.416002.10.20.22.4.2" /> <id nullFlavor="NA" /> <code codeSystem="local" code="HCTT" displayName= "HEMATOCRIT" /> <statusCode code="completed" /> < effectiveTime value="" /> <value unit="%" xsi:type="PQ " value="25.7" /> <interpretationCode codeSystem="local" code="*" /> <referenceRange> <observationRange> <text>37.0- 47.0</text> </observationRange> </referenceRange> </ observation> </component> <component> <observation moodCode= "EVN" classCode="OBS"> <templateId root="05.27.840.1.299053.10..4.2 " /> <id nullFlavor="NA" /> <code codeSystem="local" code="PLT " displayName="PLATELET COUNT" /> <statusCode code="completed" /> <effectiveTime value="331585171976" /> <value unit="k/cumm" xsi: type="PQ" value="372" /> <referenceRange> <observationRange > <text>150-400</text> </observationRange> </ referenceRange> </observation> </component> </organizer> </entry > <entry> <organizer moodCode="EVN" classCode="BATTERY"> <templateId root="05.27.840.1.605349.01.28.22.4.1" /> <id nullFlavor="NA" /> <code codeSystem="local" code="GLUMON" displayName="GLUCOSE (POC)" /> < statusCode code="completed" /> <component> <observation moodCode= "EVN" classCode="OBS"> <templateId root="05.27.840.1.771056.10.22.4.2 " /> <id nullFlavor="NA" /> <code codeSystem="local" code= "GLUMON" displayName="GLUCOSE (POC)" /> <statusCode code="completed" / > <effectiveTime value="920752084441" /> <value unit="mg/dL" xsi:type="PQ" value="94" /> <referenceRange> < observationRange> <text>70-99</text> </observationRange > </referenceRange> </observation> </component> </ organizer> </entry> <entry> <organizer moodCode="EVN" classCode="BATTERY"> <templateId root="05.27.840.1.631832.10..22.4.1" /> <id nullFlavor= "NA" /> <code codeSystem="local" code="GLUMON" displayName="GLUCOSE (POC)" /> <statusCode code="completed" /> <component> <observation moodCode="EVN" classCode="OBS"> <templateId root= "840.1.950752.01.28.22.4.2" /> <id nullFlavor="NA" /> < code codeSystem="local" code="GLUMON" displayName="GLUCOSE (POC)" /> < statusCode code="completed" /> <effectiveTime value="637388508336" /> <value unit="mg/dL" xsi:type="PQ" value="95" /> < referenceRange> <observationRange> <text>70-99</text> </observationRange> </referenceRange> </observation> </component> </organizer> </entry> <entry> <organizer moodCode="EVN " classCode="BATTERY"> <templateId root="840.1.357811.01.28.22.4.1" / > <id nullFlavor="NA" /> <code codeSystem="local" code="GLUMON" displayName="GLUCOSE (POC)" /> <statusCode code="completed" /> < component> <observation moodCode="EVN" classCode="OBS"> < templateId root="05.27.840.1.628966.10..22.4.2" /> <id nullFlavor="NA " /> <code codeSystem="local" code="GLUMON" displayName="GLUCOSE (POC) " /> <statusCode code="completed" /> <effectiveTime value= "082978360139" /> <value unit="mg/dL" xsi:type="PQ" value="94" /> <referenceRange> <observationRange> <text>70-99</ text> </observationRange> </referenceRange> </ observation> </component> </organizer> </entry> <entry> <organizer moodCode="EVN" classCode="BATTERY"> <templateId root= "216.840.1.479082.10.20.22.4.1" /> <id nullFlavor="NA" /> <code codeSystem="local" code="GLUMON" displayName="GLUCOSE (POC)" /> < statusCode code="completed" /> <component> <observation moodCode= "EVN" classCode="OBS"> <templateId root="16.840.1.368897.10.20.22.4.2 " /> <id nullFlavor="NA" /> <code codeSystem="local" code= "GLUMON" displayName="GLUCOSE (POC)" /> <statusCode code="completed" / > <effectiveTime value="763739348171" /> <value unit="mg/dL" xsi:type="PQ" value="115" /> <interpretationCode codeSystem="local" code="*" /> <referenceRange> <observationRange> <text>70-99</text> </observationRange> </referenceRange> </observation> </component> </organizer> </entry> <entry> < organizer moodCode="EVN" classCode="BATTERY"> <templateId root= "16.840.1.791625.10.20.22.4.1" /> <id nullFlavor="NA" /> <code codeSystem="local" code="GLUMON" displayName="GLUCOSE (POC)" /> < statusCode code="completed" /> <component> <observation moodCode= "EVN" classCode="OBS"> <templateId root="2.16.840.1.027249.10..22.4.2 " /> <id nullFlavor="NA" /> <code codeSystem="local" code= "GLUMON" displayName="GLUCOSE (POC)" /> <statusCode code="completed" / > <effectiveTime value="485897881580" /> <value unit="mg/dL" xsi:type="PQ" value="106" /> <interpretationCode codeSystem="local" code="*" /> <referenceRange> <observationRange> <text>70-99</text> </observationRange> </referenceRange> </observation> </component> </organizer> </entry> <entry> < organizer moodCode="EVN" classCode="BATTERY"> <templateId root= "216.840.1.432775.10..22.4.1" /> <id nullFlavor="NA" /> <code codeSystem="local" code="GLUMON" displayName="GLUCOSE (POC)" /> < statusCode code="completed" /> <component> <observation moodCode= "EVN" classCode="OBS"> <templateId root="216.840.1.625002.10..22.4.2 " /> <id nullFlavor="NA" /> <code codeSystem="local" code= "GLUMON" displayName="GLUCOSE (POC)" /> <statusCode code="completed" / > <effectiveTime value="158812156283" /> <value unit="mg/dL" xsi:type="PQ" value="101" /> <interpretationCode codeSystem="local" code="*" /> <referenceRange> <observationRange> <text>70-99</text> </observationRange> </referenceRange> </observation> </component> </organizer> </entry> <entry> < organizer moodCode="EVN" classCode="BATTERY"> <templateId root= "05.27.840.1.893050.10...4.1" /> <id nullFlavor="NA" /> <code codeSystem="local" code="GLUMON" displayName="GLUCOSE (POC)" /> < statusCode code="completed" /> <component> <observation moodCode= "EVN" classCode="OBS"> <templateId root="840.1.539132...4.2 " /> <id nullFlavor="NA" /> <code codeSystem="local" code= "GLUMON" displayName="GLUCOSE (POC)" /> <statusCode code="completed" / > <effectiveTime value="022907684437" /> <value unit="mg/dL" xsi:type="PQ" value="105" /> <interpretationCode codeSystem="local" code="*" /> <referenceRange> <observationRange> <text>70-99</text> </observationRange> </referenceRange> </observation> </component> </organizer> </entry> <entry> < organizer moodCode="EVN" classCode="BATTERY"> <templateId root= "840.1.506984.01.28.22.4.1" /> <id nullFlavor="NA" /> <code codeSystem="local" code="GLUMON" displayName="GLUCOSE (POC)" /> < statusCode code="completed" /> <component> <observation moodCode= "EVN" classCode="OBS"> <templateId root="05.27.840.1.593914.10..22.4.2 " /> <id nullFlavor="NA" /> <code codeSystem="local" code= "GLUMON" displayName="GLUCOSE (POC)" /> <statusCode code="completed" / > <effectiveTime value="927320671483" /> <value unit="mg/dL" xsi:type="PQ" value="111" /> <interpretationCode codeSystem="local" code="*" /> <referenceRange> <observationRange> <text>70-99</text> </observationRange> </referenceRange> </observation> </component> </organizer> </entry> <entry> < organizer moodCode="EVN" classCode="BATTERY"> <templateId root= "216.840.1.678897.10..22.4.1" /> <id nullFlavor="NA" /> <code codeSystem="local" code="GLUMON" displayName="GLUCOSE (POC)" /> < statusCode code="completed" /> <component> <observation moodCode= "EVN" classCode="OBS"> <templateId root="16.840.1.155107.10..22.4.2 " /> <id nullFlavor="NA" /> <code codeSystem="local" code= "GLUMON" displayName="GLUCOSE (POC)" /> <statusCode code="completed" / > <effectiveTime value="723494104268" /> <value unit="mg/dL" xsi:type="PQ" value="105" /> <interpretationCode codeSystem="local" code="*" /> <referenceRange> <observationRange> <text>70-99</text> </observationRange> </referenceRange> </observation> </component> </organizer> </entry> <entry> < organizer moodCode="EVN" classCode="BATTERY"> <templateId root= "16.840.1.588174.10..22.4.1" /> <id nullFlavor="NA" /> <code codeSystem="local" code="MRSAS" displayName="MRSA SURVEILLANCE SCREEN" /> < statusCode code="completed" /> <component> <observation moodCode= "EVN" classCode="OBS"> <templateId root="216.840.1.794652.10..22.4.2 " /> <id nullFlavor="NA" /> <code codeSystem="local" code="MB " displayName="Microbiology" /> <statusCode code="completed" /> <effectiveTime value="391230636601" /> <value xsi:type="ST" value="< pre><b>MRSA SURVEILLANCE SCREEN</b> See BelowMRSA SURVEILLANCE SCREEN(F) Sanam Date/Time: 04/21/2015 06:45 Crow Date/Time: 04/22/2015 06:54SOURCE: ANTERIOR NARESSPEC DESC: [facility] [place] [address]</pre> " /> <referenceRange> <observationRange> <text /> </observationRange> </referenceRange> </ observation> </component> </organizer> </entry> <entry> <organizer moodCode="EVN" classCode="BATTERY"> <templateId root= "05.27.840.1.771133.10..22.4.1" /> <id nullFlavor="NA" /> <code codeSystem="local" code="GLUMON" displayName="GLUCOSE (POC)" /> < statusCode code="completed" /> <component> <observation moodCode= "EVN" classCode="OBS"> <templateId root="216.840.1.155369.10..22.4.2 " /> <id nullFlavor="NA" /> <code codeSystem="local" code= "GLUMON" displayName="GLUCOSE (POC)" /> <statusCode code="completed" / > <effectiveTime value="628417573839" /> <value unit="mg/dL" xsi:type="PQ" value="104" /> <interpretationCode codeSystem="local" code="*" /> <referenceRange> <observationRange> <text>70-99</text> </observationRange> </referenceRange> </observation> </component> </organizer> </entry> <entry> < organizer moodCode="EVN" classCode="BATTERY"> <templateId root= "2.16.840.1.615402.10..22.4.1" /> <id nullFlavor="NA" /> <code codeSystem="local" code="GLUMON" displayName="GLUCOSE (POC)" /> < statusCode code="completed" /> <component> <observation moodCode= "EVN" classCode="OBS"> <templateId root="2.16.840.1.820699.10..22.4.2 " /> <id nullFlavor="NA" /> <code codeSystem="local" code= "GLUMON" displayName="GLUCOSE (POC)" /> <statusCode code="completed" / > <effectiveTime value="687099506291" /> <value unit="mg/dL" xsi:type="PQ" value="99" /> <referenceRange> < observationRange> <text>70-99</text> </observationRange > </referenceRange> </observation> </component> </ organizer> </entry> <entry> <organizer moodCode="EVN" classCode="BATTERY"> <templateId root="2.16.840.1.815245.10..22.4.1" /> <id nullFlavor= "NA" /> <code codeSystem="local" code="GLUMON" displayName="GLUCOSE (POC)" /> <statusCode code="completed" /> <component> <observation moodCode="EVN" classCode="OBS"> <templateId root= "2.16.840.1.205348.10.20.22.4.2" /> <id nullFlavor="NA" /> < code codeSystem="local" code="GLUMON" displayName="GLUCOSE (POC)" /> < statusCode code="completed" /> <effectiveTime value="841979256374" /> <value unit="mg/dL" xsi:type="PQ" value="107" /> < interpretationCode codeSystem="local" code="*" /> <referenceRange> <observationRange> <text>70-99</text> </ observationRange> </referenceRange> </observation> </ component> </organizer> </entry> <entry> <organizer moodCode="EVN" classCode="BATTERY"> <templateId root="2.16.840.1.159610.10.20.22.4.1" /> <id nullFlavor="NA" /> <code codeSystem="local" code="17525-6" displayName="Complete blood count (CBC) with automated white blood cell (WBC) differential" /> <statusCode code="completed" /> <component> < observation moodCode="EVN" classCode="OBS"> <templateId root= "2.16.840.1.858732.10.20.22.4.2" /> <id nullFlavor="NA" /> < code codeSystem="local" code="6690-2" displayName="Blood leukocytes automated count (number/volume)" /> <statusCode code="completed" /> < effectiveTime value="637375541290" /> <value unit="10*3/uL" xsi:type= "PQ" value="10.8" /> <referenceRange> <observationRange> <text>4.3-11.0</text> </observationRange> </ referenceRange> </observation> </component> <component> <observation moodCode="EVN" classCode="OBS"> <templateId root= "2.16.840.1.432909.10.20.22.4.2" /> <id nullFlavor="NA" /> < code codeSystem="local" code="789-8" displayName="Blood erythrocytes automated count (number/volume)" /> <statusCode code="completed" /> < effectiveTime value="546002346906" /> <value unit="10*6/uL" xsi:type= "PQ" value="4.88" /> <referenceRange> <observationRange> <text>4.35-5.85</text> </observationRange> </ referenceRange> </observation> </component> <component> <observation moodCode="EVN" classCode="OBS"> <templateId root= "216.840.1.683159.10.22.4.2" /> <id nullFlavor="NA" /> < code codeSystem="local" code="49234-5" displayName="Venous blood hemoglobin measurement (mass/volume)" /> <statusCode code="completed" /> <effectiveTime value="541075826227" /> <value unit="g/dL" xsi:type="PQ " value="11.3" /> <interpretationCode codeSystem="local" code="" /> <referenceRange> <observationRange> <text>11.5- 16.0</text> </observationRange> </referenceRange> </ observation> </component> <component> <observation moodCode= "EVN" classCode="OBS"> <templateId root="2.16.840.1.069906.10.20.22.4.2 " /> <id nullFlavor="NA" /> <code codeSystem="local" code= "56689-4" displayName="Blood hematocrit (volume fraction)" /> < statusCode code="completed" /> <effectiveTime value="857784826172" /> <value unit="%" xsi:type="PQ" value="36" /> < referenceRange> <observationRange> <text>35-52</text> </observationRange> </referenceRange> </observation> </component> <component> <observation moodCode="EVN" classCode= "OBS"> <templateId root="2.16.840.1.245486.10..22.4.2" /> < id nullFlavor="NA" /> <code codeSystem="local" code="787-2" displayName ="Automated erythrocyte mean corpuscular volume" /> <statusCode code= "completed" /> <effectiveTime value="973173789336" /> <value unit="[foz_us]" xsi:type="PQ" value="74" /> <interpretationCode codeSystem="local" code="" /> <referenceRange> < observationRange> <text>80-99</text> </observationRange > </referenceRange> </observation> </component> < component> <observation moodCode="EVN" classCode="OBS"> < templateId root="2.16.840.1.716062.10.20.22.4.2" /> <id nullFlavor="NA " /> <code codeSystem="local" code="785-6" displayName="Automated erythrocyte mean corpuscular hemoglobin (mass per erythrocyte)" /> < statusCode code="completed" /> <effectiveTime value="833063645570" /> <value unit="pg" xsi:type="PQ" value="23" /> < interpretationCode codeSystem="local" code="" /> <referenceRange> <observationRange> <text>25-34</text> </ observationRange> </referenceRange> </observation> </ component> <component> <observation moodCode="EVN" classCode="OBS"> <templateId root="216.840.1.026573.10.20.22.4.2" /> <id nullFlavor="NA" /> <code codeSystem="local" code="786-4" displayName= "Automated erythrocyte mean corpuscular hemoglobin concentration measurement ( mass/volume)" /> <statusCode code="completed" /> < effectiveTime value="008247327873" /> <value unit="g/dL" xsi:type="PQ" value="31" /> <interpretationCode codeSystem="local" code="" /> <referenceRange> <observationRange> <text>32-36</ text> </observationRange> </referenceRange> </ observation> </component> <component> <observation moodCode= "EVN" classCode="OBS"> <templateId root="05.27.840.1.951613.1022.4.2 " /> <id nullFlavor="NA" /> <code codeSystem="local" code="788 -0" displayName="Automated erythrocyte distribution width ratio" /> < statusCode code="completed" /> <effectiveTime value="801248408788" /> <value unit="%" xsi:type="PQ" value="18.2" /> < interpretationCode codeSystem="local" code="" /> <referenceRange> <observationRange> <text>10.0-14.5</text> </ observationRange> </referenceRange> </observation> </ component> <component> <observation moodCode="EVN" classCode="OBS"> <templateId root="05.27.840.1.413883.10.20.22.4.2" /> <id nullFlavor="NA" /> <code codeSystem="local" code="777-3" displayName= "Automated blood platelet count (count/volume)" /> <statusCode code= "completed" /> <effectiveTime value="506779800690" /> <value unit="10*3/uL" xsi:type="PQ" value="459" /> <interpretationCode codeSystem="local" code="" /> <referenceRange> < observationRange> <text>130-400</text> </ observationRange> </referenceRange> </observation> </ component> <component> <observation moodCode="EVN" classCode="OBS"> <templateId root="2.16.840.1.774077.10.20.22.4.2" /> <id nullFlavor="NA" /> <code codeSystem="local" code="84950-1" displayName= "Automated blood platelet mean volume measurement" /> <statusCode code= "completed" /> <effectiveTime value="719948210180" /> <value unit="[foz_us]" xsi:type="PQ" value="9.7" /> <referenceRange> <observationRange> <text>7.4-10.4</text> </ observationRange> </referenceRange> </observation> </ component> <component> <observation moodCode="EVN" classCode="OBS"> <templateId root="2.16.840.1.561109.10.20.22.4.2" /> <id nullFlavor="NA" /> <code codeSystem="local" code="770-8" displayName= "Automated blood neutrophils/100 leukocytes" /> <statusCode code= "completed" /> <effectiveTime value="190778313146" /> <value unit="%" xsi:type="PQ" value="55" /> <referenceRange> < observationRange> <text>42-75</text> </observationRange > </referenceRange> </observation> </component> < component> <observation moodCode="EVN" classCode="OBS"> < templateId root="2.16.840.1.742486.10.20.22.4.2" /> <id nullFlavor="NA " /> <code codeSystem="local" code="736-9" displayName="Automated blood lymphocytes/100 leukocytes" /> <statusCode code="completed" /> <effectiveTime value="055486249089" /> <value unit="%" xsi: type="PQ" value="37" /> <referenceRange> <observationRange> <text>12-44</text> </observationRange> </ referenceRange> </observation> </component> <component> <observation moodCode="EVN" classCode="OBS"> <templateId root= "2.16.840.1.264390.10.20.22.4.2" /> <id nullFlavor="NA" /> < code codeSystem="local" code="75048-2" displayName="Blood monocytes/100 leukocytes" /> <statusCode code="completed" /> <effectiveTime value="783931362556" /> <value unit="%" xsi:type="PQ" value="6" /> <referenceRange> <observationRange> <text>0-12 </text> </observationRange> </referenceRange> </ observation> </component> <component> <observation moodCode= "EVN" classCode="OBS"> <templateId root="2.16.840.1.242539.10.20.22.4.2 " /> <id nullFlavor="NA" /> <code codeSystem="local" code="713 -8" displayName="Automated blood eosinophils/100 leukocytes" /> < statusCode code="completed" /> <effectiveTime value="881481789328" /> <value unit="%" xsi:type="PQ" value="2" /> <referenceRange > <observationRange> <text>0-10</text> </ observationRange> </referenceRange> </observation> </ component> <component> <observation moodCode="EVN" classCode="OBS"> <templateId root="216.840.1.263633.10.20.22.4.2" /> <id nullFlavor="NA" /> <code codeSystem="local" code="706-2" displayName= "Automated blood basophils/100 leukocytes" /> <statusCode code= "completed" /> <effectiveTime value="109669596910" /> <value unit="%" xsi:type="PQ" value="0" /> <referenceRange> < observationRange> <text>0-10</text> </observationRange> </referenceRange> </observation> </component> < component> <observation moodCode="EVN" classCode="OBS"> < templateId root="05.27.840.1.171780.10.20.22.4.2" /> <id nullFlavor="NA " /> <code codeSystem="local" code="751-8" displayName="Blood neutrophils automated count (number/volume)" /> <statusCode code= "completed" /> <effectiveTime value="291629631026" /> <value unit="10*3" xsi:type="PQ" value="5.9" /> <referenceRange> < observationRange> <text>1.8-7.8</text> </ observationRange> </referenceRange> </observation> </ component> <component> <observation moodCode="EVN" classCode="OBS"> <templateId root="05.27.840.1.573338.10.20.22.4.2" /> <id nullFlavor="NA" /> <code codeSystem="local" code="731-0" displayName= "Blood lymphocytes automated count (number/volume)" /> <statusCode code ="completed" /> <effectiveTime value="475888183070" /> <value unit="10*3" xsi:type="PQ" value="4.0" /> <referenceRange> < observationRange> <text>1.0-4.0</text> </ observationRange> </referenceRange> </observation> </ component> <component> <observation moodCode="EVN" classCode="OBS"> <templateId root="2.16.840.1.669614.10.20.22.4.2" /> <id nullFlavor="NA" /> <code codeSystem="local" code="742-7" displayName= "Blood monocytes automated count (number/volume)" /> <statusCode code= "completed" /> <effectiveTime value="161914386983" /> <value unit="10*3" xsi:type="PQ" value="0.6" /> <referenceRange> < observationRange> <text>0.0-1.0</text> </ observationRange> </referenceRange> </observation> </ component> <component> <observation moodCode="EVN" classCode="OBS"> <templateId root="2.16.840.1.606666.10.20.22.4.2" /> <id nullFlavor="NA" /> <code codeSystem="local" code="711-2" displayName= "Automated eosinophil count" /> <statusCode code="completed" /> <effectiveTime value="711063873368" /> <value unit="10*3/uL" xsi: type="PQ" value="0.2" /> <referenceRange> <observationRange > <text>0.0-0.3</text> </observationRange> </ referenceRange> </observation> </component> <component> <observation moodCode="EVN" classCode="OBS"> <templateId root= "2.16.840.1.326401.10.20.22.4.2" /> <id nullFlavor="NA" /> < code codeSystem="local" code="704-7" displayName="Automated blood basophil count (count/volume)" /> <statusCode code="completed" /> < effectiveTime value="192193641996" /> <value unit="10*3/uL" xsi:type= "PQ" value="0.0" /> <referenceRange> <observationRange> <text>0.0-0.1</text> </observationRange> </ referenceRange> </observation> </component> </organizer> </entry > <entry> <organizer moodCode="EVN" classCode="BATTERY"> <templateId root="2.16.840.1.706966.10.20.22.4.1" /> <id nullFlavor="NA" /> <code codeSystem="local" code="62590-7" displayName="Complete blood count (CBC) with automated white blood cell (WBC) differential" /> <statusCode code= "completed" /> <component> <observation moodCode="EVN" classCode= "OBS"> <templateId root="2.16.840.1.157504.10.20.22.4.2" /> < id nullFlavor="NA" /> <code codeSystem="local" code="6690-2" displayName="Blood leukocytes automated count (number/volume)" /> < statusCode code="completed" /> <effectiveTime value="272089190448" /> <value unit="10*3/uL" xsi:type="PQ" value="9.4" /> < referenceRange> <observationRange> <text>4.3-11.0</text > </observationRange> </referenceRange> </observation > </component> <component> <observation moodCode="EVN" classCode="OBS"> <templateId root="2.16.840.1.788918.10.20.22.4.2" /> <id nullFlavor="NA" /> <code codeSystem="local" code="789-8" displayName="Blood erythrocytes automated count (number/volume)" /> < statusCode code="completed" /> <effectiveTime value="" /> <value unit="10*6/uL" xsi:type="PQ" value="5.00" /> < referenceRange> <observationRange> <text>4.35-5.85</text > </observationRange> </referenceRange> </observation > </component> <component> <observation moodCode="EVN" classCode="OBS"> <templateId root="2.16.840.1.338181.10..22.4.2" /> <id nullFlavor="NA" /> <code codeSystem="local" code="91945-4 " displayName="Venous blood hemoglobin measurement (mass/volume)" /> < statusCode code="completed" /> <effectiveTime value="" /> <value unit="g/dL" xsi:type="PQ" value="11.7" /> < referenceRange> <observationRange> <text>11.5-16.0</text > </observationRange> </referenceRange> </observation > </component> <component> <observation moodCode="EVN" classCode="OBS"> <templateId root="2.16.840.1.397235.10.20.22.4.2" /> <id nullFlavor="NA" /> <code codeSystem="local" code="75622-2 " displayName="Blood hematocrit (volume fraction)" /> <statusCode code= "completed" /> <effectiveTime value="" /> <value unit="%" xsi:type="PQ" value="38" /> <referenceRange> < observationRange> <text>35-52</text> </observationRange > </referenceRange> </observation> </component> < component> <observation moodCode="EVN" classCode="OBS"> < templateId root="216.840.1.309652.10...4.2" /> <id nullFlavor="NA " /> <code codeSystem="local" code="787-2" displayName="Automated erythrocyte mean corpuscular volume" /> <statusCode code="completed" / > <effectiveTime value="" /> <value unit="[foz_us] " xsi:type="PQ" value="75" /> <interpretationCode codeSystem="local" code="" /> <referenceRange> <observationRange> <text>80-99</text> </observationRange> </referenceRange> </observation> </component> <component> <observation moodCode="EVN" classCode="OBS"> <templateId root= "216.840.1.258406.10...4.2" /> <id nullFlavor="NA" /> < code codeSystem="local" code="785-6" displayName="Automated erythrocyte mean corpuscular hemoglobin (mass per erythrocyte)" /> <statusCode code= "completed" /> <effectiveTime value="" /> <value unit="pg" xsi:type="PQ" value="23" /> <interpretationCode codeSystem= "local" code="" /> <referenceRange> <observationRange> <text>25-34</text> </observationRange> </ referenceRange> </observation> </component> <component> <observation moodCode="EVN" classCode="OBS"> <templateId root= "840.1.405326.10..22.4.2" /> <id nullFlavor="NA" /> < code codeSystem="local" code="786-4" displayName="Automated erythrocyte mean corpuscular hemoglobin concentration measurement (mass/volume)" /> < statusCode code="completed" /> <effectiveTime value="" /> <value unit="g/dL" xsi:type="PQ" value="31" /> < interpretationCode codeSystem="local" code="" /> <referenceRange> <observationRange> <text>32-36</text> </ observationRange> </referenceRange> </observation> </ component> <component> <observation moodCode="EVN" classCode="OBS"> <templateId root="05.27.840.1.434899.10..22.4.2" /> <id nullFlavor="NA" /> <code codeSystem="local" code="788-0" displayName= "Automated erythrocyte distribution width ratio" /> <statusCode code= "completed" /> <effectiveTime value="" /> <value unit="%" xsi:type="PQ" value="18.3" /> <interpretationCode codeSystem="local" code="" /> <referenceRange> < observationRange> <text>10.0-14.5</text> </ observationRange> </referenceRange> </observation> </ component> <component> <observation moodCode="EVN" classCode="OBS"> <templateId root="16.840.1.228895.10.20.22.4.2" /> <id nullFlavor="NA" /> <code codeSystem="local" code="777-3" displayName= "Automated blood platelet count (count/volume)" /> <statusCode code= "completed" /> <effectiveTime value="" /> <value unit="10*3/uL" xsi:type="PQ" value="554" /> <interpretationCode codeSystem="local" code="" /> <referenceRange> < observationRange> <text>130-400</text> </ observationRange> </referenceRange> </observation> </ component> <component> <observation moodCode="EVN" classCode="OBS"> <templateId root="216.840.1.755021.10.20.22.4.2" /> <id nullFlavor="NA" /> <code codeSystem="local" code="56673-1" displayName= "Automated blood platelet mean volume measurement" /> <statusCode code= "completed" /> <effectiveTime value="443255474152" /> <value unit="[foz_us]" xsi:type="PQ" value="9.7" /> <referenceRange> <observationRange> <text>7.4-10.4</text> </ observationRange> </referenceRange> </observation> </ component> <component> <observation moodCode="EVN" classCode="OBS"> <templateId root="216.840.1.958753.10.20.22.4.2" /> <id nullFlavor="NA" /> <code codeSystem="local" code="770-8" displayName= "Automated blood neutrophils/100 leukocytes" /> <statusCode code= "completed" /> <effectiveTime value="465105090987" /> <value unit="%" xsi:type="PQ" value="60" /> <referenceRange> < observationRange> <text>42-75</text> </observationRange > </referenceRange> </observation> </component> < component> <observation moodCode="EVN" classCode="OBS"> < templateId root="216.840.1.213866.10..22.4.2" /> <id nullFlavor="NA " /> <code codeSystem="local" code="736-9" displayName="Automated blood lymphocytes/100 leukocytes" /> <statusCode code="completed" /> <effectiveTime value="" /> <value unit="%" xsi: type="PQ" value="32" /> <referenceRange> <observationRange> <text>12-44</text> </observationRange> </ referenceRange> </observation> </component> <component> <observation moodCode="EVN" classCode="OBS"> <templateId root= "2.16.840.1.775670.10..22.4.2" /> <id nullFlavor="NA" /> < code codeSystem="local" code="71803-0" displayName="Blood monocytes/100 leukocytes" /> <statusCode code="completed" /> <effectiveTime value="" /> <value unit="%" xsi:type="PQ" value="5" /> <referenceRange> <observationRange> <text>0-12 </text> </observationRange> </referenceRange> </ observation> </component> <component> <observation moodCode= "EVN" classCode="OBS"> <templateId root="2.16.840.1.969139.10.20.22.4.2 " /> <id nullFlavor="NA" /> <code codeSystem="local" code="713 -8" displayName="Automated blood eosinophils/100 leukocytes" /> < statusCode code="completed" /> <effectiveTime value="" /> <value unit="%" xsi:type="PQ" value="2" /> <referenceRange > <observationRange> <text>0-10</text> </ observationRange> </referenceRange> </observation> </ component> <component> <observation moodCode="EVN" classCode="OBS"> <templateId root="2.16.840.1.037933.10..22.4.2" /> <id nullFlavor="NA" /> <code codeSystem="local" code="706-2" displayName= "Automated blood basophils/100 leukocytes" /> <statusCode code= "completed" /> <effectiveTime value="" /> <value unit="%" xsi:type="PQ" value="0" /> <referenceRange> < observationRange> <text>0-10</text> </observationRange> </referenceRange> </observation> </component> < component> <observation moodCode="EVN" classCode="OBS"> < templateId root="2.16.840.1.357115..22.4.2" /> <id nullFlavor="NA " /> <code codeSystem="local" code="751-8" displayName="Blood neutrophils automated count (number/volume)" /> <statusCode code= "completed" /> <effectiveTime value="" /> <value unit="10*3" xsi:type="PQ" value="4.9" /> <referenceRange> < observationRange> <text>1.8-7.8</text> </ observationRange> </referenceRange> </observation> </ component> <component> <observation moodCode="EVN" classCode="OBS"> <templateId root="2.16.840.1.473903.10..22.4.2" /> <id nullFlavor="NA" /> <code codeSystem="local" code="731-0" displayName= "Blood lymphocytes automated count (number/volume)" /> <statusCode code ="completed" /> <effectiveTime value="" /> <value unit="10*3" xsi:type="PQ" value="2.6" /> <referenceRange> < observationRange> <text>1.0-4.0</text> </ observationRange> </referenceRange> </observation> </ component> <component> <observation moodCode="EVN" classCode="OBS"> <templateId root="216.840.1.313050.22.4.2" /> <id nullFlavor="NA" /> <code codeSystem="local" code="742-7" displayName= "Blood monocytes automated count (number/volume)" /> <statusCode code= "completed" /> <effectiveTime value="" /> <value unit="10*3" xsi:type="PQ" value="0.4" /> <referenceRange> < observationRange> <text>0.0-1.0</text> </ observationRange> </referenceRange> </observation> </ component> <component> <observation moodCode="EVN" classCode="OBS"> <templateId root="216.840.1.358244.01.28.22.4.2" /> <id nullFlavor="NA" /> <code codeSystem="local" code="711-2" displayName= "Automated eosinophil count" /> <statusCode code="completed" /> <effectiveTime value="055788782080" /> <value unit="10*3/uL" xsi: type="PQ" value="0.2" /> <referenceRange> <observationRange > <text>0.0-0.3</text> </observationRange> </ referenceRange> </observation> </component> <component> <observation moodCode="EVN" classCode="OBS"> <templateId root= "216.840.1.324164.01.28.22.4.2" /> <id nullFlavor="NA" /> < code codeSystem="local" code="704-7" displayName="Automated blood basophil count (count/volume)" /> <statusCode code="completed" /> < effectiveTime value="513971932334" /> <value unit="10*3/uL" xsi:type= "PQ" value="0.0" /> <referenceRange> <observationRange> <text>0.0-0.1</text> </observationRange> </ referenceRange> </observation> </component> </organizer> </entry > <entry> <organizer moodCode="EVN" classCode="BATTERY"> <templateId root="216.840.1.290078.10..4.1" /> <id nullFlavor="NA" /> <code codeSystem="local" code="13457-9" displayName="Comprehensive metabolic panel" / > <statusCode code="completed" /> <component> <observation moodCode="EVN" classCode="OBS"> <templateId root= "216.840.1.984628.10..22.4.2" /> <id nullFlavor="NA" /> < code codeSystem="local" code="2951-2" displayName="Serum or plasma sodium measurement (moles/volume)" /> <statusCode code="completed" /> <effectiveTime value="475651163758" /> <value unit="mmol/L" xsi:type= "PQ" value="137" /> <referenceRange> <observationRange> <text>135-145</text> </observationRange> </ referenceRange> </observation> </component> <component> <observation moodCode="EVN" classCode="OBS"> <templateId root= "2.16.840.1.298264.10..4.2" /> <id nullFlavor="NA" /> < code codeSystem="local" code="2823-3" displayName="Serum or plasma potassium measurement (moles/volume)" /> <statusCode code="completed" /> <effectiveTime value="" /> <value unit="mmol/L" xsi:type= "PQ" value="4.4" /> <referenceRange> <observationRange> <text>3.6-5.0</text> </observationRange> </ referenceRange> </observation> </component> <component> <observation moodCode="EVN" classCode="OBS"> <templateId root= "2.16.840.1.374689.10..22.4.2" /> <id nullFlavor="NA" /> < code codeSystem="local" code="" displayName="Serum or plasma chloride measurement (moles/volume)" /> <statusCode code="completed" /> <effectiveTime value="" /> <value unit="mmol/L" xsi:type= "PQ" value="108" /> <interpretationCode codeSystem="local" code="" / > <referenceRange> <observationRange> <text>98- 107</text> </observationRange> </referenceRange> </ observation> </component> <component> <observation moodCode= "EVN" classCode="OBS"> <templateId root="2.16.840.1.225560.10..22.4.2 " /> <id nullFlavor="NA" /> <code codeSystem="local" code= "2027-12" displayName="Carbon dioxide" /> <statusCode code="completed" / > <effectiveTime value="" /> <value unit="mmol/L" xsi:type="PQ" value="19" /> <interpretationCode codeSystem="local" code ="" /> <referenceRange> <observationRange> < text>21-32</text> </observationRange> </referenceRange> </observation> </component> <component> <observation moodCode="EVN" classCode="OBS"> <templateId root= "216.840.1.687787.10.20.22.4.2" /> <id nullFlavor="NA" /> < code codeSystem="local" code="34189-2" displayName="Serum or plasma anion gap determination (moles/volume)" /> <statusCode code="completed" /> <effectiveTime value="195299275655" /> <value unit="mmol/L" xsi: type="PQ" value="10" /> <referenceRange> <observationRange> <text>5-14</text> </observationRange> </ referenceRange> </observation> </component> <component> <observation moodCode="EVN" classCode="OBS"> <templateId root= "16.840.1.801539.10..22.4.2" /> <id nullFlavor="NA" /> < code codeSystem="local" code="3094-0" displayName="Serum or plasma urea nitrogen measurement (mass/volume)" /> <statusCode code="completed" /> <effectiveTime value="829627528451" /> <value unit="mg/dL" xsi:type="PQ" value="8" /> <referenceRange> < observationRange> <text>7-18</text> </observationRange> </referenceRange> </observation> </component> < component> <observation moodCode="EVN" classCode="OBS"> < templateId root="216.840.1.297968.10.20.22.4.2" /> <id nullFlavor="NA " /> <code codeSystem="local" code="2160-0" displayName="Serum or plasma creatinine measurement (mass/volume)" /> <statusCode code= "completed" /> <effectiveTime value="652257394609" /> <value unit="mg/dL" xsi:type="PQ" value="0.73" /> <referenceRange> <observationRange> <text>0.60-1.30</text> </ observationRange> </referenceRange> </observation> </ component> <component> <observation moodCode="EVN" classCode="OBS"> <templateId root="216.840.1.574872.10.20.22.4.2" /> <id nullFlavor="NA" /> <code codeSystem="local" code="3097-3" displayName= "Serum or plasma urea nitrogen/creatinine mass ratio" /> <statusCode code="completed" /> <effectiveTime value="610992953344" /> < value unit="" xsi:type="PQ" value="11" /> <referenceRange> < observationRange> <text>NRG</text> </observationRange> </referenceRange> </observation> </component> < component> <observation moodCode="EVN" classCode="OBS"> < templateId root="216.840.1.178639.10.20.22.4.2" /> <id nullFlavor="NA " /> <code codeSystem="local" code="27962-7" displayName="Serum or plasma creatinine measurement with calculation of estimated glomerular filtration rate" /> <statusCode code="completed" /> < effectiveTime value="378428567375" /> <value unit="" xsi:type="PQ" value=">" /> <referenceRange> <observationRange> <text>NRG</text> </observationRange> </referenceRange > </observation> </component> <component> <observation moodCode="EVN" classCode="OBS"> <templateId root= "840.1.780423.10.20.22.4.2" /> <id nullFlavor="NA" /> < code codeSystem="local" code="2345-7" displayName="Serum or plasma glucose measurement (mass/volume)" /> <statusCode code="completed" /> <effectiveTime value="194608036634" /> <value unit="mg/dL" xsi:type="PQ " value="96" /> <referenceRange> <observationRange> <text>70-105</text> </observationRange> </ referenceRange> </observation> </component> <component> <observation moodCode="EVN" classCode="OBS"> <templateId root= "216.840.1.930493.10.20.22.4.2" /> <id nullFlavor="NA" /> < code codeSystem="local" code="34982-5" displayName="Serum or plasma calcium measurement (mass/volume)" /> <statusCode code="completed" /> <effectiveTime value="531240871239" /> <value unit="mg/dL" xsi:type="PQ " value="9.8" /> <referenceRange> <observationRange> <text>8.5-10.1</text> </observationRange> </ referenceRange> </observation> </component> <component> <observation moodCode="EVN" classCode="OBS"> <templateId root= "16.840.1.234696.10.20.22.4.2" /> <id nullFlavor="NA" /> < code codeSystem="local" code="1974-05" displayName="Serum or plasma total bilirubin measurement (mass/volume)" /> <statusCode code="completed" / > <effectiveTime value="780634747921" /> <value unit="mg/dL" xsi:type="PQ" value="0.3" /> <referenceRange> < observationRange> <text>0.1-1.0</text> </ observationRange> </referenceRange> </observation> </ component> <component> <observation moodCode="EVN" classCode="OBS"> <templateId root="2.16.840.1.359797.10.20.22.4.2" /> <id nullFlavor="NA" /> <code codeSystem="local" code="6768-6" displayName= "Serum or plasma alkaline phosphatase measurement (enzymatic activity/volume)" / > <statusCode code="completed" /> <effectiveTime value= "763571176123" /> <value unit="U/L" xsi:type="PQ" value="56" /> <referenceRange> <observationRange> <text>40-136</ text> </observationRange> </referenceRange> </ observation> </component> <component> <observation moodCode= "EVN" classCode="OBS"> <templateId root="16.840.1.662654.10..22.4.2 " /> <id nullFlavor="NA" /> <code codeSystem="local" code= "192" displayName="Serum or plasma aspartate aminotransferase measurement ( enzymatic activity/volume)" /> <statusCode code="completed" /> <effectiveTime value="547535411844" /> <value unit="U/L" xsi:type="PQ " value="22" /> <referenceRange> <observationRange> <text>5-34</text> </observationRange> </referenceRange > </observation> </component> <component> <observation moodCode="EVN" classCode="OBS"> <templateId root= "216.840.1.156927.10.20.22.4.2" /> <id nullFlavor="NA" /> < code codeSystem="local" code="1742-6" displayName="Serum or plasma alanine aminotransferase measurement (enzymatic activity/volume)" /> < statusCode code="completed" /> <effectiveTime value="064627669190" /> <value unit="U/L" xsi:type="PQ" value="14" /> <referenceRange > <observationRange> <text>0-55</text> </ observationRange> </referenceRange> </observation> </ component> <component> <observation moodCode="EVN" classCode="OBS"> <templateId root="2.16.840.1.989175.10.20.22.4.2" /> <id nullFlavor="NA" /> <code codeSystem="local" code="2885-2" displayName= "Serum or plasma protein measurement (mass/volume)" /> <statusCode code ="completed" /> <effectiveTime value="459154803073" /> <value unit="g/dL" xsi:type="PQ" value="8.4" /> <interpretationCode codeSystem ="local" code="" /> <referenceRange> <observationRange> <text>6.4-8.2</text> </observationRange> </ referenceRange> </observation> </component> <component> <observation moodCode="EVN" classCode="OBS"> <templateId root= "2.16.840.1.540579.10.20.22.4.2" /> <id nullFlavor="NA" /> < code codeSystem="local" code="1751-7" displayName="Serum or plasma albumin measurement (mass/volume)" /> <statusCode code="completed" /> <effectiveTime value="" /> <value unit="g/dL" xsi:type="PQ " value="4.4" /> <referenceRange> <observationRange> <text>3.2-4.5</text> </observationRange> </ referenceRange> </observation> </component> </organizer> </entry > <entry> <organizer moodCode="EVN" classCode="BATTERY"> <templateId root="2.16.840.1.483759.10..4.1" /> <id nullFlavor="NA" /> <code codeSystem="local" code="4024-6" displayName="Serum or plasma salicylates measurement (mass/volume)" /> <statusCode code="completed" /> < component> <observation moodCode="EVN" classCode="OBS"> < templateId root="216.840.1.580367...4.2" /> <id nullFlavor="NA " /> <code codeSystem="local" code="4024-6" displayName="Serum or plasma salicylates measurement (mass/volume)" /> <statusCode code= "completed" /> <effectiveTime value="742655227483" /> <value unit="mg/dL" xsi:type="PQ" value="<" /> <interpretationCode codeSystem="local" code="" /> <referenceRange> < observationRange> <text>5.0-20.0</text> </ observationRange> </referenceRange> </observation> </ component> </organizer> </entry> <entry> <organizer moodCode="EVN" classCode="BATTERY"> <templateId root="216.840.1.267416.10..4.1" /> <id nullFlavor="NA" /> <code codeSystem="local" code="3298-7" displayName="Serum or plasma acetaminophen measurement (mass/volume)" /> < statusCode code="completed" /> <component> <observation moodCode= "EVN" classCode="OBS"> <templateId root="216.840.1.390675.01.28.22.4.2 " /> <id nullFlavor="NA" /> <code codeSystem="local" code= "3298-7" displayName="Serum or plasma acetaminophen measurement (mass/volume)" / > <statusCode code="completed" /> <effectiveTime value= "416957909069" /> <value unit="ug/mL" xsi:type="PQ" value="<" /> <interpretationCode codeSystem="local" code="" /> < referenceRange> <observationRange> <text>10-30</text> </observationRange> </referenceRange> </observation> </component> </organizer> </entry> <entry> <organizer moodCode="EVN " classCode="BATTERY"> <templateId root="2.16.840.1.255916.10.20.22.4.1" / > <id nullFlavor="NA" /> <code codeSystem="local" code="5643-2" displayName="Serum or plasma ethanol measurement (mass/volume)" /> < statusCode code="completed" /> <component> <observation moodCode= "EVN" classCode="OBS"> <templateId root="2.16.840.1.322337.10.20.22.4.2 " /> <id nullFlavor="NA" /> <code codeSystem="local" code= "5643-2" displayName="Serum or plasma ethanol measurement (mass/volume)" /> <statusCode code="completed" /> <effectiveTime value= "176752762918" /> <value unit="mg/dL" xsi:type="PQ" value="<" /> <referenceRange> <observationRange> <text><10< /text> </observationRange> </referenceRange> </ observation> </component> </organizer> </entry> <entry> <organizer moodCode="EVN" classCode="BATTERY"> <templateId root= "05.27.840.1.579647.10..4.1" /> <id nullFlavor="NA" /> <code codeSystem="local" code="24536-9" displayName="Complete urinalysis with reflex to culture" /> <statusCode code="completed" /> <component> < observation moodCode="EVN" classCode="OBS"> <templateId root= "840.1.006406.01.28.22.4.2" /> <id nullFlavor="NA" /> < code codeSystem="local" code="5778-6" displayName="Urine color determination" / > <statusCode code="completed" /> <effectiveTime value= "" /> <value unit="" xsi:type="PQ" value="YELLOW" /> <referenceRange> <observationRange> <text>NRG</text > </observationRange> </referenceRange> </observation > </component> <component> <observation moodCode="EVN" classCode="OBS"> <templateId root="05.27.840.1.127169.01.28.22.4.2" /> <id nullFlavor="NA" /> <code codeSystem="local" code="20757-9 " displayName="Urine clarity determination" /> <statusCode code= "completed" /> <effectiveTime value="" /> <value unit="" xsi:type="PQ" value="SLIGHTLY CLOUDY" /> <referenceRange> <observationRange> <text>NRG</text> </ observationRange> </referenceRange> </observation> </ component> <component> <observation moodCode="EVN" classCode="OBS"> <templateId root="05.27.840.1.537068.01.28.22.4.2" /> <id nullFlavor="NA" /> <code codeSystem="local" code="5803-2" displayName= "Urine pH measurement by test strip" /> <statusCode code="completed" / > <effectiveTime value="" /> <value unit="" xsi: type="PQ" value="6.5" /> <referenceRange> <observationRange > <text>5-9</text> </observationRange> </ referenceRange> </observation> </component> <component> <observation moodCode="EVN" classCode="OBS"> <templateId root= "2.16.840.1.720018.10..22.4.2" /> <id nullFlavor="NA" /> < code codeSystem="local" code="5811-5" displayName="Specific gravity of urine by test strip" /> <statusCode code="completed" /> <effectiveTime value="" /> <value unit="" xsi:type="PQ" value="1.010" /> <interpretationCode codeSystem="local" code="" /> < referenceRange> <observationRange> <text>1.016-1.022</ text> </observationRange> </referenceRange> </ observation> </component> <component> <observation moodCode= "EVN" classCode="OBS"> <templateId root="216.840.1.725750.10.20.22.4.2 " /> <id nullFlavor="NA" /> <code codeSystem="local" code= "83767-8" displayName="Urine protein assay by test strip, semi-quantitative" /> <statusCode code="completed" /> <effectiveTime value= "" /> <value unit="" xsi:type="PQ" value="NEGATIVE" /> <referenceRange> <observationRange> <text>NEGATIVE </text> </observationRange> </referenceRange> </ observation> </component> <component> <observation moodCode= "EVN" classCode="OBS"> <templateId root="216.840.1.789494.10..22.4.2 " /> <id nullFlavor="NA" /> <code codeSystem="local" code= "51750-0" displayName="Urine glucose detection by automated test strip" /> <statusCode code="completed" /> <effectiveTime value=" " /> <value unit="" xsi:type="PQ" value="NEGATIVE" /> < referenceRange> <observationRange> <text>NEGATIVE</text > </observationRange> </referenceRange> </observation > </component> <component> <observation moodCode="EVN" classCode="OBS"> <templateId root="216.840.1.838120...4.2" /> <id nullFlavor="NA" /> <code codeSystem="local" code="33975-9 " displayName="Erythrocytes detection in urine sediment by light microscopy" /> <statusCode code="completed" /> <effectiveTime value= "" /> <value unit="" xsi:type="PQ" value="4+" /> < interpretationCode codeSystem="local" code="*" /> <referenceRange> <observationRange> <text>NEGATIVE</text> </ observationRange> </referenceRange> </observation> </ component> <component> <observation moodCode="EVN" classCode="OBS"> <templateId root="216.840.1.433524.10..22.4.2" /> <id nullFlavor="NA" /> <code codeSystem="local" code="48704-7" displayName= "Urine ketones detection by automated test strip" /> <statusCode code= "completed" /> <effectiveTime value="" /> <value unit="" xsi:type="PQ" value="3+" /> <interpretationCode codeSystem= "local" code="*" /> <referenceRange> <observationRange> <text>NEGATIVE</text> </observationRange> </ referenceRange> </observation> </component> <component> <observation moodCode="EVN" classCode="OBS"> <templateId root= "216.840.1.597263.10.22.4.2" /> <id nullFlavor="NA" /> < code codeSystem="local" code="5802-4" displayName="Urine nitrite detection by test strip" /> <statusCode code="completed" /> <effectiveTime value="" /> <value unit="" xsi:type="PQ" value="NEGATIVE" / > <referenceRange> <observationRange> <text> NEGATIVE</text> </observationRange> </referenceRange> </observation> </component> <component> <observation moodCode ="EVN" classCode="OBS"> <templateId root= "05.27.840.1.259288.10.22.4.2" /> <id nullFlavor="NA" /> < code codeSystem="local" code="5770-3" displayName="Urine total bilirubin detection by test strip" /> <statusCode code="completed" /> < effectiveTime value="" /> <value unit="" xsi:type="PQ" value="NEGATIVE" /> <referenceRange> <observationRange> <text>NEGATIVE</text> </observationRange> </ referenceRange> </observation> </component> <component> <observation moodCode="EVN" classCode="OBS"> <templateId root= "16.840.1.991701.10.20.22.4.2" /> <id nullFlavor="NA" /> < code codeSystem="local" code="58324-4" displayName="Urine urobilinogen measurement by automated test strip (mass/volume)" /> <statusCode code= "completed" /> <effectiveTime value="" /> <value unit="" xsi:type="PQ" value="NORMAL" /> <referenceRange> < observationRange> <text>NORMAL</text> </observationRange > </referenceRange> </observation> </component> < component> <observation moodCode="EVN" classCode="OBS"> < templateId root="2.16.840.1.603180.10.20.22.4.2" /> <id nullFlavor="NA " /> <code codeSystem="local" code="5799-2" displayName="Urine leukocyte esterase detection by dipstick" /> <statusCode code= "completed" /> <effectiveTime value="" /> <value unit="" xsi:type="PQ" value="NEGATIVE" /> <referenceRange> < observationRange> <text>NEGATIVE</text> </ observationRange> </referenceRange> </observation> </ component> <component> <observation moodCode="EVN" classCode="OBS"> <templateId root="2.16.840.1.288556.10.20.22.4.2" /> <id nullFlavor="NA" /> <code codeSystem="local" code="45180-9" displayName= "Automated urine sediment erythrocyte count by microscopy (number/high power field)" /> <statusCode code="completed" /> <effectiveTime value="" /> <value unit="" xsi:type="PQ" value="RARE" /> <referenceRange> <observationRange> <text>NRG</ text> </observationRange> </referenceRange> </ observation> </component> <component> <observation moodCode= "EVN" classCode="OBS"> <templateId root="216.840.1.780346.10.20.22.4.2 " /> <id nullFlavor="NA" /> <code codeSystem="local" code= "5821-4" displayName="Automated urine sediment leukocyte count by microscopy ( number/high power field)" /> <statusCode code="completed" /> < effectiveTime value="" /> <value unit="[HPF]" xsi:type="PQ " value="" /> <referenceRange> <observationRange> <text>NRG</text> </observationRange> </referenceRange> </observation> </component> <component> <observation moodCode="EVN" classCode="OBS"> <templateId root= "05.27.840.1.856765.10..22.4.2" /> <id nullFlavor="NA" /> < code codeSystem="local" code="12739-6" displayName="Bacteria detection in urine sediment by light microscopy" /> <statusCode code="completed" /> <effectiveTime value="" /> <value unit="" xsi:type="PQ " value="NEGATIVE" /> <referenceRange> <observationRange> <text>NRG</text> </observationRange> </ referenceRange> </observation> </component> <component> <observation moodCode="EVN" classCode="OBS"> <templateId root= "16.840.1.524469.10.20.22.4.2" /> <id nullFlavor="NA" /> < code codeSystem="local" code="45454-6" displayName="Squamous epithelial cells detection in urine sediment by light microscopy" /> <statusCode code= "completed" /> <effectiveTime value="" /> <value unit="" xsi:type="PQ" value="2-5" /> <referenceRange> < observationRange> <text>NRG</text> </observationRange> </referenceRange> </observation> </component> < component> <observation moodCode="EVN" classCode="OBS"> < templateId root="216.840.1.559679.10.20.22.4.2" /> <id nullFlavor="NA " /> <code codeSystem="local" code="62438-2" displayName="Crystals detection in urine sediment by light microscopy" /> <statusCode code= "completed" /> <effectiveTime value="248976490601" /> <value unit="" xsi:type="PQ" value="NONE" /> <referenceRange> < observationRange> <text>NRG</text> </observationRange> </referenceRange> </observation> </component> < component> <observation moodCode="EVN" classCode="OBS"> < templateId root="05.27.840.1.826080.10.22.4.2" /> <id nullFlavor="NA " /> <code codeSystem="local" code="70850-7" displayName="Casts detection in urine sediment by light microscopy" /> <statusCode code= "completed" /> <effectiveTime value="191864751763" /> <value unit="" xsi:type="PQ" value="NONE" /> <referenceRange> < observationRange> <text>NRG</text> </observationRange> </referenceRange> </observation> </component> < component> <observation moodCode="EVN" classCode="OBS"> < templateId root="16.840.1.135181.10.20.22.4.2" /> <id nullFlavor="NA " /> <code codeSystem="local" code="8247-9" displayName="Mucus detection in urine sediment by light microscopy" /> <statusCode code= "completed" /> <effectiveTime value="" /> <value unit="" xsi:type="PQ" value="NEGATIVE" /> <referenceRange> < observationRange> <text>NRG</text> </observationRange> </referenceRange> </observation> </component> < component> <observation moodCode="EVN" classCode="OBS"> < templateId root="216.840.1.821550.10.22.4.2" /> <id nullFlavor="NA " /> <code codeSystem="local" code="23538-9" displayName="Complete urinalysis with reflex to culture" /> <statusCode code="completed" /> <effectiveTime value="" /> <value unit="" xsi:type ="PQ" value="NO" /> <referenceRange> <observationRange> <text>NRG</text> </observationRange> </ referenceRange> </observation> </component> <component> <observation moodCode="EVN" classCode="OBS"> <templateId root= "216.840.1.315709.10..4.2" /> <id nullFlavor="NA" /> < code codeSystem="local" code="10417-8" displayName="Yeast detection in urine sediment by light microscopy" /> <statusCode code="completed" /> <effectiveTime value="" /> <value unit="" xsi:type="PQ " value="FEW" /> <interpretationCode codeSystem="local" code="*" /> <referenceRange> <observationRange> <text>NRG</ text> </observationRange> </referenceRange> </ observation> </component> </organizer> </entry> <entry> <organizer moodCode="EVN" classCode="BATTERY"> <templateId root= "2.16.840.1.480753.10..22.4.1" /> <id nullFlavor="NA" /> <code codeSystem="local" code="76141-0" displayName="Urine drug screening test" /> <statusCode code="completed" /> <component> <observation moodCode ="EVN" classCode="OBS"> <templateId root= "216.840.1.059781.10..22.4.2" /> <id nullFlavor="NA" /> < code codeSystem="local" code="12433-0" displayName="Urine phencyclidine detection by screening method" /> <statusCode code="completed" /> <effectiveTime value="206022094220" /> <value unit="" xsi:type="PQ " value="NEGATIVE" /> <referenceRange> <observationRange> <text>NEGATIVE</text> </observationRange> </ referenceRange> </observation> </component> <component> <observation moodCode="EVN" classCode="OBS"> <templateId root= "16.840.1.891195...4.2" /> <id nullFlavor="NA" /> < code codeSystem="local" code="66773-3" displayName="Urine benzodiazepines detection by screening method" /> <statusCode code="completed" /> <effectiveTime value="" /> <value unit="" xsi:type="PQ " value="POSITIVE" /> <interpretationCode codeSystem="local" code="*" / > <referenceRange> <observationRange> <text> NEGATIVE</text> </observationRange> </referenceRange> </observation> </component> <component> <observation moodCode ="EVN" classCode="OBS"> <templateId root= "16.840.1.425504.10..22.4.2" /> <id nullFlavor="NA" /> < code codeSystem="local" code="3397-7" displayName="Urine cocaine detection" /> <statusCode code="completed" /> <effectiveTime value= "" /> <value unit="" xsi:type="PQ" value="NEGATIVE" /> <referenceRange> <observationRange> <text>NEGATIVE </text> </observationRange> </referenceRange> </ observation> </component> <component> <observation moodCode= "EVN" classCode="OBS"> <templateId root="216.840.1.395133.10.20.22.4.2 " /> <id nullFlavor="NA" /> <code codeSystem="local" code= "43527-7" displayName="Urine amphetamines detection by screening method" /> <statusCode code="completed" /> <effectiveTime value= "" /> <value unit="" xsi:type="PQ" value="NEGATIVE" /> <referenceRange> <observationRange> <text>NEGATIVE </text> </observationRange> </referenceRange> </ observation> </component> <component> <observation moodCode= "EVN" classCode="OBS"> <templateId root="16.840.1.737738.10.20.22.4.2 " /> <id nullFlavor="NA" /> <code codeSystem="local" code= "52945-2" displayName="Urine methamphetamine detection by screening method" /> <statusCode code="completed" /> <effectiveTime value= "" /> <value unit="" xsi:type="PQ" value="NEGATIVE" /> <referenceRange> <observationRange> <text>NEGATIVE </text> </observationRange> </referenceRange> </ observation> </component> <component> <observation moodCode= "EVN" classCode="OBS"> <templateId root="05.27.840.1.880762.10..22.4.2 " /> <id nullFlavor="NA" /> <code codeSystem="local" code= "35194-6" displayName="Urine cannabinoids detection by screening method" /> <statusCode code="completed" /> <effectiveTime value= "" /> <value unit="" xsi:type="PQ" value="NEGATIVE" /> <referenceRange> <observationRange> <text>NEGATIVE </text> </observationRange> </referenceRange> </ observation> </component> <component> <observation moodCode= "EVN" classCode="OBS"> <templateId root="2.16.840.1.996747...4.2 " /> <id nullFlavor="NA" /> <code codeSystem="local" code= "88423-2" displayName="Urine opiates detection by screening method" /> <statusCode code="completed" /> <effectiveTime value="" /> <value unit="" xsi:type="PQ" value="NEGATIVE" /> < referenceRange> <observationRange> <text>NEGATIVE</text > </observationRange> </referenceRange> </observation > </component> <component> <observation moodCode="EVN" classCode="OBS"> <templateId root="216.840.1.018897.1022.4.2" /> <id nullFlavor="NA" /> <code codeSystem="local" code="3377-9" displayName="Urine barbiturates detection" /> <statusCode code= "completed" /> <effectiveTime value="" /> <value unit="" xsi:type="PQ" value="NEGATIVE" /> <referenceRange> < observationRange> <text>NEGATIVE</text> </ observationRange> </referenceRange> </observation> </ component> <component> <observation moodCode="EVN" classCode="OBS"> <templateId root="2.16.840.1.390720.10..22.4.2" /> <id nullFlavor="NA" /> <code codeSystem="local" code="80248-1" displayName= "Screening urine tricyclic antidepressants detection" /> <statusCode code="completed" /> <effectiveTime value="" /> < value unit="" xsi:type="PQ" value="NEGATIVE" /> <referenceRange> <observationRange> <text>NEGATIVE</text> </ observationRange> </referenceRange> </observation> </ component> <component> <observation moodCode="EVN" classCode="OBS"> <templateId root="2.16.840.1.451159.10...4.2" /> <id nullFlavor="NA" /> <code codeSystem="local" code="24690-1" displayName= "Urine methadone detection by screening method" /> <statusCode code= "completed" /> <effectiveTime value="" /> <value unit="" xsi:type="PQ" value="NEGATIVE" /> <referenceRange> < observationRange> <text>NEGATIVE</text> </ observationRange> </referenceRange> </observation> </ component> <component> <observation moodCode="EVN" classCode="OBS"> <templateId root="216.840.1.291688.10..22.4.2" /> <id nullFlavor="NA" /> <code codeSystem="local" code="97360-7" displayName= "Urine oxycodone detection" /> <statusCode code="completed" /> <effectiveTime value="" /> <value unit="" xsi:type="PQ" value="NEGATIVE" /> <referenceRange> <observationRange> <text>NEGATIVE</text> </observationRange> </ referenceRange> </observation> </component> <component> <observation moodCode="EVN" classCode="OBS"> <templateId root= "216.840.1.840770.10..22.4.2" /> <id nullFlavor="NA" /> < code codeSystem="local" code="70763-1" displayName="Urine propoxyphene detection " /> <statusCode code="completed" /> <effectiveTime value= "" /> <value unit="" xsi:type="PQ" value="NEGATIVE" /> <referenceRange> <observationRange> <text>NEGATIVE </text> </observationRange> </referenceRange> </ observation> </component> <component> <observation moodCode= "EVN" classCode="OBS"> <templateId root="216.840.1.131946.10..4.2 " /> <id nullFlavor="NA" /> <code codeSystem="local" code= "19899-6" displayName="Urine buprenophrine screen" /> <statusCode code= "completed" /> <effectiveTime value="" /> <value unit="" xsi:type="PQ" value="NEGATIVE" /> <referenceRange> < observationRange> <text>NEGATIVE</text> </ observationRange> </referenceRange> </observation> </ component> </organizer> </entry> <entry> <organizer moodCode="EVN" classCode="BATTERY"> <templateId root="216.840.1.676547.10..22.4.1" /> <id nullFlavor="NA" /> <code codeSystem="local" code="91904-5" displayName="Capillary blood glucose measurement by glucometer (mass/volume)" / > <statusCode code="completed" /> <component> <observation moodCode="EVN" classCode="OBS"> <templateId root= "2.16.840.1.901349.10.20.22.4.2" /> <id nullFlavor="NA" /> < code codeSystem="local" code="40071-3" displayName="Capillary blood glucose measurement by glucometer (mass/volume)" /> <statusCode code="completed " /> <effectiveTime value="036580618571" /> <value unit="mg/dL " xsi:type="PQ" value="118" /> <interpretationCode codeSystem="local" code="" /> <referenceRange> <observationRange> <text>70-110</text> </observationRange> </referenceRange > </observation> </component> </organizer> </entry> <entry> <organizer moodCode="EVN" classCode="BATTERY"> <templateId root= "2.16.840.1.193967.10.20.22.4.1" /> <id nullFlavor="NA" /> <code codeSystem="local" code="51150-4" displayName="Complete blood count (CBC) with automated white blood cell (WBC) differential" /> <statusCode code= "completed" /> <component> <observation moodCode="EVN" classCode= "OBS"> <templateId root="2.16.840.1.166549.10.20.22.4.2" /> < id nullFlavor="NA" /> <code codeSystem="local" code="6690-2" displayName="Blood leukocytes automated count (number/volume)" /> < statusCode code="completed" /> <effectiveTime value="756520870873" /> <value unit="10*3/uL" xsi:type="PQ" value="7.2" /> < referenceRange> <observationRange> <text>4.3-11.0</text > </observationRange> </referenceRange> </observation > </component> <component> <observation moodCode="EVN" classCode="OBS"> <templateId root="216.840.1.907411.10.20.22.4.2" /> <id nullFlavor="NA" /> <code codeSystem="local" code="789-8" displayName="Blood erythrocytes automated count (number/volume)" /> < statusCode code="completed" /> <effectiveTime value="721720890405" /> <value unit="10*6/uL" xsi:type="PQ" value="4.09" /> < interpretationCode codeSystem="local" code="" /> <referenceRange> <observationRange> <text>4.35-5.85</text> </ observationRange> </referenceRange> </observation> </ component> <component> <observation moodCode="EVN" classCode="OBS"> <templateId root="216.840.1.938583.10..22.4.2" /> <id nullFlavor="NA" /> <code codeSystem="local" code="72089-0" displayName= "Venous blood hemoglobin measurement (mass/volume)" /> <statusCode code ="completed" /> <effectiveTime value="644407008098" /> <value unit="g/dL" xsi:type="PQ" value="9.5" /> <interpretationCode codeSystem ="local" code="" /> <referenceRange> <observationRange> <text>11.5-16.0</text> </observationRange> </ referenceRange> </observation> </component> <component> <observation moodCode="EVN" classCode="OBS"> <templateId root= "2.16.840.1.582491.10.20.22.4.2" /> <id nullFlavor="NA" /> < code codeSystem="local" code="20807-0" displayName="Blood hematocrit (volume fraction)" /> <statusCode code="completed" /> <effectiveTime value="" /> <value unit="%" xsi:type="PQ" value="31" / > <interpretationCode codeSystem="local" code="" /> < referenceRange> <observationRange> <text>35-52</text> </observationRange> </referenceRange> </observation> </component> <component> <observation moodCode="EVN" classCode= "OBS"> <templateId root="2.16.840.1.211708.10.22.4.2" /> < id nullFlavor="NA" /> <code codeSystem="local" code="787-2" displayName ="Automated erythrocyte mean corpuscular volume" /> <statusCode code= "completed" /> <effectiveTime value="" /> <value unit="[foz_us]" xsi:type="PQ" value="76" /> <interpretationCode codeSystem="local" code="" /> <referenceRange> < observationRange> <text>80-99</text> </observationRange > </referenceRange> </observation> </component> < component> <observation moodCode="EVN" classCode="OBS"> < templateId root="2.16.840.1.533966.10..22.4.2" /> <id nullFlavor="NA " /> <code codeSystem="local" code="785-6" displayName="Automated erythrocyte mean corpuscular hemoglobin (mass per erythrocyte)" /> < statusCode code="completed" /> <effectiveTime value="" /> <value unit="pg" xsi:type="PQ" value="23" /> < interpretationCode codeSystem="local" code="" /> <referenceRange> <observationRange> <text>25-34</text> </ observationRange> </referenceRange> </observation> </ component> <component> <observation moodCode="EVN" classCode="OBS"> <templateId root="2.16.840.1.572537.10...4.2" /> <id nullFlavor="NA" /> <code codeSystem="local" code="786-4" displayName= "Automated erythrocyte mean corpuscular hemoglobin concentration measurement ( mass/volume)" /> <statusCode code="completed" /> < effectiveTime value="110341647237" /> <value unit="g/dL" xsi:type="PQ" value="31" /> <interpretationCode codeSystem="local" code="" /> <referenceRange> <observationRange> <text>32-36</ text> </observationRange> </referenceRange> </ observation> </component> <component> <observation moodCode= "EVN" classCode="OBS"> <templateId root="216.840.1.268626.10...4.2 " /> <id nullFlavor="NA" /> <code codeSystem="local" code="788 -0" displayName="Automated erythrocyte distribution width ratio" /> < statusCode code="completed" /> <effectiveTime value="904892815196" /> <value unit="%" xsi:type="PQ" value="17.9" /> < interpretationCode codeSystem="local" code="" /> <referenceRange> <observationRange> <text>10.0-14.5</text> </ observationRange> </referenceRange> </observation> </ component> <component> <observation moodCode="EVN" classCode="OBS"> <templateId root="2.16.840.1.888590.10.20.22.4.2" /> <id nullFlavor="NA" /> <code codeSystem="local" code="777-3" displayName= "Automated blood platelet count (count/volume)" /> <statusCode code= "completed" /> <effectiveTime value="150699190714" /> <value unit="10*3/uL" xsi:type="PQ" value="473" /> <interpretationCode codeSystem="local" code="" /> <referenceRange> < observationRange> <text>130-400</text> </ observationRange> </referenceRange> </observation> </ component> <component> <observation moodCode="EVN" classCode="OBS"> <templateId root="216.840.1.683056.10.20.22.4.2" /> <id nullFlavor="NA" /> <code codeSystem="local" code="45958-4" displayName= "Automated blood platelet mean volume measurement" /> <statusCode code= "completed" /> <effectiveTime value="" /> <value unit="[foz_us]" xsi:type="PQ" value="9.9" /> <referenceRange> <observationRange> <text>7.4-10.4</text> </ observationRange> </referenceRange> </observation> </ component> <component> <observation moodCode="EVN" classCode="OBS"> <templateId root="216.840.1.624195.10.20.22.4.2" /> <id nullFlavor="NA" /> <code codeSystem="local" code="770-8" displayName= "Automated blood neutrophils/100 leukocytes" /> <statusCode code= "completed" /> <effectiveTime value="" /> <value unit="%" xsi:type="PQ" value="43" /> <referenceRange> < observationRange> <text>42-75</text> </observationRange > </referenceRange> </observation> </component> < component> <observation moodCode="EVN" classCode="OBS"> < templateId root="2.16.840.1.760266.10.20.22.4.2" /> <id nullFlavor="NA " /> <code codeSystem="local" code="736-9" displayName="Automated blood lymphocytes/100 leukocytes" /> <statusCode code="completed" /> <effectiveTime value="348519684481" /> <value unit="%" xsi: type="PQ" value="47" /> <interpretationCode codeSystem="local" code=" " /> <referenceRange> <observationRange> <text> 12-44</text> </observationRange> </referenceRange> </ observation> </component> <component> <observation moodCode= "EVN" classCode="OBS"> <templateId root="216.840.1.186245.10...4.2 " /> <id nullFlavor="NA" /> <code codeSystem="local" code= "27999-5" displayName="Blood monocytes/100 leukocytes" /> <statusCode code="completed" /> <effectiveTime value="703732735112" /> < value unit="%" xsi:type="PQ" value="7" /> <referenceRange> <observationRange> <text>0-12</text> </ observationRange> </referenceRange> </observation> </ component> <component> <observation moodCode="EVN" classCode="OBS"> <templateId root="2.16.840.1.314721.10.20.22.4.2" /> <id nullFlavor="NA" /> <code codeSystem="local" code="713-8" displayName= "Automated blood eosinophils/100 leukocytes" /> <statusCode code= "completed" /> <effectiveTime value="073329465184" /> <value unit="%" xsi:type="PQ" value="3" /> <referenceRange> < observationRange> <text>0-10</text> </observationRange> </referenceRange> </observation> </component> < component> <observation moodCode="EVN" classCode="OBS"> < templateId root="2.16.840.1.378875.10.20.22.4.2" /> <id nullFlavor="NA " /> <code codeSystem="local" code="706-2" displayName="Automated blood basophils/100 leukocytes" /> <statusCode code="completed" /> <effectiveTime value="146437520624" /> <value unit="%" xsi: type="PQ" value="0" /> <referenceRange> <observationRange> <text>0-10</text> </observationRange> </ referenceRange> </observation> </component> <component> <observation moodCode="EVN" classCode="OBS"> <templateId root= "2.16.840.1.039452.10.20.22.4.2" /> <id nullFlavor="NA" /> < code codeSystem="local" code="751-8" displayName="Blood neutrophils automated count (number/volume)" /> <statusCode code="completed" /> < effectiveTime value="803685534291" /> <value unit="10*3" xsi:type="PQ" value="3.1" /> <referenceRange> <observationRange> <text>1.8-7.8</text> </observationRange> </ referenceRange> </observation> </component> <component> <observation moodCode="EVN" classCode="OBS"> <templateId root= "2.16.840.1.728533.10.20.22.4.2" /> <id nullFlavor="NA" /> < code codeSystem="local" code="731-0" displayName="Blood lymphocytes automated count (number/volume)" /> <statusCode code="completed" /> < effectiveTime value="" /> <value unit="10*3" xsi:type="PQ" value="3.4" /> <referenceRange> <observationRange> <text>1.0-4.0</text> </observationRange> </ referenceRange> </observation> </component> <component> <observation moodCode="EVN" classCode="OBS"> <templateId root= "216.840.1.237366..22.4.2" /> <id nullFlavor="NA" /> < code codeSystem="local" code="742-7" displayName="Blood monocytes automated count (number/volume)" /> <statusCode code="completed" /> < effectiveTime value="" /> <value unit="10*3" xsi:type="PQ" value="0.5" /> <referenceRange> <observationRange> <text>0.0-1.0</text> </observationRange> </ referenceRange> </observation> </component> <component> <observation moodCode="EVN" classCode="OBS"> <templateId root= "2.16.840.1.117937.10.20.22.4.2" /> <id nullFlavor="NA" /> < code codeSystem="local" code="711-2" displayName="Automated eosinophil count" / > <statusCode code="completed" /> <effectiveTime value= "" /> <value unit="10*3/uL" xsi:type="PQ" value="0.2" /> <referenceRange> <observationRange> <text>0.0- 0.3</text> </observationRange> </referenceRange> </ observation> </component> <component> <observation moodCode= "EVN" classCode="OBS"> <templateId root="216.840.1.757215.10.4.2 " /> <id nullFlavor="NA" /> <code codeSystem="local" code="704 -7" displayName="Automated blood basophil count (count/volume)" /> < statusCode code="completed" /> <effectiveTime value="" /> <value unit="10*3/uL" xsi:type="PQ" value="0.0" /> < referenceRange> <observationRange> <text>0.0-0.1</text> </observationRange> </referenceRange> </observation > </component> </organizer> </entry> <entry> <organizer moodCode= "EVN" classCode="BATTERY"> <templateId root="05.27.840.1.647738.10.4.1 " /> <id nullFlavor="NA" /> <code codeSystem="local" code="73064-2" displayName="Comprehensive metabolic panel" /> <statusCode code="completed " /> <component> <observation moodCode="EVN" classCode="OBS"> <templateId root="05.27.840.1.671282.1022.4.2" /> <id nullFlavor ="NA" /> <code codeSystem="local" code="2951-2" displayName="Serum or plasma sodium measurement (moles/volume)" /> <statusCode code= "completed" /> <effectiveTime value="" /> <value unit="mmol/L" xsi:type="PQ" value="139" /> <referenceRange> <observationRange> <text>135-145</text> </ observationRange> </referenceRange> </observation> </ component> <component> <observation moodCode="EVN" classCode="OBS"> <templateId root="2.16.840.1.846060.10.20.22.4.2" /> <id nullFlavor="NA" /> <code codeSystem="local" code="2823-3" displayName= "Serum or plasma potassium measurement (moles/volume)" /> <statusCode code="completed" /> <effectiveTime value="032624053478" /> < value unit="mmol/L" xsi:type="PQ" value="3.8" /> <referenceRange> <observationRange> <text>3.6-5.0</text> </ observationRange> </referenceRange> </observation> </ component> <component> <observation moodCode="EVN" classCode="OBS"> <templateId root="216.840.1.836865.10..22.4.2" /> <id nullFlavor="NA" /> <code codeSystem="local" code="2075-0" displayName= "Serum or plasma chloride measurement (moles/volume)" /> <statusCode code="completed" /> <effectiveTime value="575622099396" /> < value unit="mmol/L" xsi:type="PQ" value="113" /> <interpretationCode codeSystem="local" code="" /> <referenceRange> < observationRange> <text>98-107</text> </observationRange > </referenceRange> </observation> </component> < component> <observation moodCode="EVN" classCode="OBS"> < templateId root="216.840.1.064041.10.20..4.2" /> <id nullFlavor="NA " /> <code codeSystem="local" code="2027-12" displayName="Carbon dioxide " /> <statusCode code="completed" /> <effectiveTime value= "" /> <value unit="mmol/L" xsi:type="PQ" value="16" /> <interpretationCode codeSystem="local" code="" /> < referenceRange> <observationRange> <text>21-32</text> </observationRange> </referenceRange> </observation> </component> <component> <observation moodCode="EVN" classCode= "OBS"> <templateId root="2.16.840.1.495182.10...4.2" /> < id nullFlavor="NA" /> <code codeSystem="local" code="42760-5" displayName="Serum or plasma anion gap determination (moles/volume)" /> <statusCode code="completed" /> <effectiveTime value="" / > <value unit="mmol/L" xsi:type="PQ" value="10" /> < referenceRange> <observationRange> <text>5-14</text> </observationRange> </referenceRange> </observation> </component> <component> <observation moodCode="EVN" classCode= "OBS"> <templateId root="2.16.840.1.525857.10...4.2" /> < id nullFlavor="NA" /> <code codeSystem="local" code="3094-0" displayName="Serum or plasma urea nitrogen measurement (mass/volume)" /> <statusCode code="completed" /> <effectiveTime value="" /> <value unit="mg/dL" xsi:type="PQ" value="8" /> < referenceRange> <observationRange> <text>7-18</text> </observationRange> </referenceRange> </observation> </component> <component> <observation moodCode="EVN" classCode= "OBS"> <templateId root="2.16.840.1.464403.10.20.22.4.2" /> < id nullFlavor="NA" /> <code codeSystem="local" code="2160-0" displayName="Serum or plasma creatinine measurement (mass/volume)" /> < statusCode code="completed" /> <effectiveTime value="345000834014" /> <value unit="mg/dL" xsi:type="PQ" value="0.62" /> < referenceRange> <observationRange> <text>0.60-1.30</text > </observationRange> </referenceRange> </observation > </component> <component> <observation moodCode="EVN" classCode="OBS"> <templateId root="216.840.1.798759.10...4.2" /> <id nullFlavor="NA" /> <code codeSystem="local" code="3097-3" displayName="Serum or plasma urea nitrogen/creatinine mass ratio" /> < statusCode code="completed" /> <effectiveTime value="156801505437" /> <value unit="" xsi:type="PQ" value="13" /> <referenceRange> <observationRange> <text>NRG</text> </ observationRange> </referenceRange> </observation> </ component> <component> <observation moodCode="EVN" classCode="OBS"> <templateId root="2.16.840.1.170704.10..22.4.2" /> <id nullFlavor="NA" /> <code codeSystem="local" code="20536-7" displayName= "Serum or plasma creatinine measurement with calculation of estimated glomerular filtration rate" /> <statusCode code="completed" /> <effectiveTime value="511498864451" /> <value unit="" xsi:type="PQ" value=">" /> <referenceRange> <observationRange> <text>NRG</text> </observationRange> </referenceRange > </observation> </component> <component> <observation moodCode="EVN" classCode="OBS"> <templateId root= "2.16.840.1.618614.10..4.2" /> <id nullFlavor="NA" /> < code codeSystem="local" code="2345-7" displayName="Serum or plasma glucose measurement (mass/volume)" /> <statusCode code="completed" /> <effectiveTime value="033431498210" /> <value unit="mg/dL" xsi:type="PQ " value="89" /> <referenceRange> <observationRange> <text>70-105</text> </observationRange> </ referenceRange> </observation> </component> <component> <observation moodCode="EVN" classCode="OBS"> <templateId root= "2.16.840.1.986736.01.28.22.4.2" /> <id nullFlavor="NA" /> < code codeSystem="local" code="38278-9" displayName="Serum or plasma calcium measurement (mass/volume)" /> <statusCode code="completed" /> <effectiveTime value="467132839276" /> <value unit="mg/dL" xsi:type="PQ " value="8.6" /> <referenceRange> <observationRange> <text>8.5-10.1</text> </observationRange> </ referenceRange> </observation> </component> <component> <observation moodCode="EVN" classCode="OBS"> <templateId root= "2.16.840.1.524252.01.28.22.4.2" /> <id nullFlavor="NA" /> < code codeSystem="local" code="1974-05" displayName="Serum or plasma total bilirubin measurement (mass/volume)" /> <statusCode code="completed" / > <effectiveTime value="020627121810" /> <value unit="mg/dL" xsi:type="PQ" value="0.3" /> <referenceRange> < observationRange> <text>0.1-1.0</text> </ observationRange> </referenceRange> </observation> </ component> <component> <observation moodCode="EVN" classCode="OBS"> <templateId root="2.16.840.1.255755.10.20.22.4.2" /> <id nullFlavor="NA" /> <code codeSystem="local" code="6767-09" displayName= "Serum or plasma alkaline phosphatase measurement (enzymatic activity/volume)" / > <statusCode code="completed" /> <effectiveTime value= "915988518832" /> <value unit="U/L" xsi:type="PQ" value="44" /> <referenceRange> <observationRange> <text>40-136</ text> </observationRange> </referenceRange> </ observation> </component> <component> <observation moodCode= "EVN" classCode="OBS"> <templateId root="2.16.840.1.289847.10.20.22.4.2 " /> <id nullFlavor="NA" /> <code codeSystem="local" code= "1919-11" displayName="Serum or plasma aspartate aminotransferase measurement ( enzymatic activity/volume)" /> <statusCode code="completed" /> <effectiveTime value="" /> <value unit="U/L" xsi:type="PQ " value="12" /> <referenceRange> <observationRange> <text>5-34</text> </observationRange> </referenceRange > </observation> </component> <component> <observation moodCode="EVN" classCode="OBS"> <templateId root= "216.840.1.412823.10.20.22.4.2" /> <id nullFlavor="NA" /> < code codeSystem="local" code="1742-6" displayName="Serum or plasma alanine aminotransferase measurement (enzymatic activity/volume)" /> < statusCode code="completed" /> <effectiveTime value="776746523101" /> <value unit="U/L" xsi:type="PQ" value="12" /> <referenceRange > <observationRange> <text>0-55</text> </ observationRange> </referenceRange> </observation> </ component> <component> <observation moodCode="EVN" classCode="OBS"> <templateId root="05.27.840.1.179567.10..22.4.2" /> <id nullFlavor="NA" /> <code codeSystem="local" code="2885-2" displayName= "Serum or plasma protein measurement (mass/volume)" /> <statusCode code ="completed" /> <effectiveTime value="983380907453" /> <value unit="g/dL" xsi:type="PQ" value="5.9" /> <interpretationCode codeSystem ="local" code="" /> <referenceRange> <observationRange> <text>6.4-8.2</text> </observationRange> </ referenceRange> </observation> </component> <component> <observation moodCode="EVN" classCode="OBS"> <templateId root= "16.840.1.228127.10.20.22.4.2" /> <id nullFlavor="NA" /> < code codeSystem="local" code="1751-7" displayName="Serum or plasma albumin measurement (mass/volume)" /> <statusCode code="completed" /> <effectiveTime value="554938893331" /> <value unit="g/dL" xsi:type="PQ " value="3.4" /> <referenceRange> <observationRange> <text>3.2-4.5</text> </observationRange> </ referenceRange> </observation> </component> </organizer> </entry > <entry> <organizer moodCode="EVN" classCode="BATTERY"> <templateId root="2.16.840.1.175462.10.20.22.4.1" /> <id nullFlavor="NA" /> <code codeSystem="local" code="2777-1" displayName="Serum or plasma phosphate measurement (mass/volume)" /> <statusCode code="completed" /> < component> <observation moodCode="EVN" classCode="OBS"> < templateId root="2.16.840.1.013991.10.20.22.4.2" /> <id nullFlavor="NA " /> <code codeSystem="local" code="2777-1" displayName="Serum or plasma phosphate measurement (mass/volume)" /> <statusCode code= "completed" /> <effectiveTime value="930939463020" /> <value unit="mg/dL" xsi:type="PQ" value="3.7" /> <referenceRange> < observationRange> <text>2.3-4.7</text> </ observationRange> </referenceRange> </observation> </ component> </organizer> </entry> <entry> <organizer moodCode="EVN" classCode="BATTERY"> <templateId root="2.16.840.1.896251.10.20.22.4.1" /> <id nullFlavor="NA" /> <code codeSystem="local" code="49863-4" displayName="Magnesium" /> <statusCode code="completed" /> <component > <observation moodCode="EVN" classCode="OBS"> <templateId root= "16.840.1.704323.10.20.22.4.2" /> <id nullFlavor="NA" /> < code codeSystem="local" code="09693-4" displayName="Magnesium" /> < statusCode code="completed" /> <effectiveTime value="322517477070" /> <value unit="mg/dL" xsi:type="PQ" value="2.1" /> < referenceRange> <observationRange> <text>1.8-2.4</text> </observationRange> </referenceRange> </observation > </component> </organizer> </entry> <entry> <organizer moodCode= "EVN" classCode="BATTERY"> <templateId root="16.840.1.552621.10.20.22.4.1 " /> <id nullFlavor="NA" /> <code codeSystem="local" code="18532-5" displayName="Complete blood count (CBC) with automated white blood cell (WBC) differential" /> <statusCode code="completed" /> <component> < observation moodCode="EVN" classCode="OBS"> <templateId root= "05.27.840.1.849604.10.20.22.4.2" /> <id nullFlavor="NA" /> < code codeSystem="local" code="6690-2" displayName="Blood leukocytes automated count (number/volume)" /> <statusCode code="completed" /> < effectiveTime value="090702108871" /> <value unit="10*3/uL" xsi:type= "PQ" value="10.3" /> <referenceRange> <observationRange> <text>4.3-11.0</text> </observationRange> </ referenceRange> </observation> </component> <component> <observation moodCode="EVN" classCode="OBS"> <templateId root= "216.840.1.766306.10.20.22.4.2" /> <id nullFlavor="NA" /> < code codeSystem="local" code="789-8" displayName="Blood erythrocytes automated count (number/volume)" /> <statusCode code="completed" /> < effectiveTime value="999769648970" /> <value unit="10*6/uL" xsi:type= "PQ" value="4.79" /> <referenceRange> <observationRange> <text>4.35-5.85</text> </observationRange> </ referenceRange> </observation> </component> <component> <observation moodCode="EVN" classCode="OBS"> <templateId root= "16.840.1.170923.10.20.22.4.2" /> <id nullFlavor="NA" /> < code codeSystem="local" code="37676-6" displayName="Venous blood hemoglobin measurement (mass/volume)" /> <statusCode code="completed" /> <effectiveTime value="801192143639" /> <value unit="g/dL" xsi:type="PQ " value="11.5" /> <referenceRange> <observationRange> <text>11.5-16.0</text> </observationRange> </ referenceRange> </observation> </component> <component> <observation moodCode="EVN" classCode="OBS"> <templateId root= "216.840.1.428454.10.20.22.4.2" /> <id nullFlavor="NA" /> < code codeSystem="local" code="16630-8" displayName="Blood hematocrit (volume fraction)" /> <statusCode code="completed" /> <effectiveTime value="859035318659" /> <value unit="%" xsi:type="PQ" value="37" / > <referenceRange> <observationRange> <text>35- 52</text> </observationRange> </referenceRange> </ observation> </component> <component> <observation moodCode= "EVN" classCode="OBS"> <templateId root="2.16.840.1.864084.10.20.22.4.2 " /> <id nullFlavor="NA" /> <code codeSystem="local" code="787 -2" displayName="Automated erythrocyte mean corpuscular volume" /> < statusCode code="completed" /> <effectiveTime value="518558401470" /> <value unit="[foz_us]" xsi:type="PQ" value="77" /> < interpretationCode codeSystem="local" code="" /> <referenceRange> <observationRange> <text>80-99</text> </ observationRange> </referenceRange> </observation> </ component> <component> <observation moodCode="EVN" classCode="OBS"> <templateId root="2.16.840.1.314919.10.20.22.4.2" /> <id nullFlavor="NA" /> <code codeSystem="local" code="785-6" displayName= "Automated erythrocyte mean corpuscular hemoglobin (mass per erythrocyte)" /> <statusCode code="completed" /> <effectiveTime value= "426778459240" /> <value unit="pg" xsi:type="PQ" value="24" /> <interpretationCode codeSystem="local" code="" /> <referenceRange> <observationRange> <text>25-34</text> </ observationRange> </referenceRange> </observation> </ component> <component> <observation moodCode="EVN" classCode="OBS"> <templateId root="05.27.840.1.022591.10.20.22.4.2" /> <id nullFlavor="NA" /> <code codeSystem="local" code="786-4" displayName= "Automated erythrocyte mean corpuscular hemoglobin concentration measurement ( mass/volume)" /> <statusCode code="completed" /> < effectiveTime value="973283323269" /> <value unit="g/dL" xsi:type="PQ" value="31" /> <interpretationCode codeSystem="local" code="" /> <referenceRange> <observationRange> <text>32-36</ text> </observationRange> </referenceRange> </ observation> </component> <component> <observation moodCode= "EVN" classCode="OBS"> <templateId root="05.27.840.1.490518.10.2022.4.2 " /> <id nullFlavor="NA" /> <code codeSystem="local" code="788 -0" displayName="Automated erythrocyte distribution width ratio" /> < statusCode code="completed" /> <effectiveTime value="112033983177" /> <value unit="%" xsi:type="PQ" value="17.3" /> < interpretationCode codeSystem="local" code="" /> <referenceRange> <observationRange> <text>10.0-14.5</text> </ observationRange> </referenceRange> </observation> </ component> <component> <observation moodCode="EVN" classCode="OBS"> <templateId root="05.27.840.1.182883.10.20.22.4.2" /> <id nullFlavor="NA" /> <code codeSystem="local" code="777-3" displayName= "Automated blood platelet count (count/volume)" /> <statusCode code= "completed" /> <effectiveTime value="570297066223" /> <value unit="10*3/uL" xsi:type="PQ" value="456" /> <interpretationCode codeSystem="local" code="" /> <referenceRange> < observationRange> <text>130-400</text> </ observationRange> </referenceRange> </observation> </ component> <component> <observation moodCode="EVN" classCode="OBS"> <templateId root="2.16.840.1.714484.10.20.22.4.2" /> <id nullFlavor="NA" /> <code codeSystem="local" code="91128-3" displayName= "Automated blood platelet mean volume measurement" /> <statusCode code= "completed" /> <effectiveTime value="621469444751" /> <value unit="[foz_us]" xsi:type="PQ" value="9.6" /> <referenceRange> <observationRange> <text>7.4-10.4</text> </ observationRange> </referenceRange> </observation> </ component> <component> <observation moodCode="EVN" classCode="OBS"> <templateId root="2.16.840.1.872464.10.20.22.4.2" /> <id nullFlavor="NA" /> <code codeSystem="local" code="770-8" displayName= "Automated blood neutrophils/100 leukocytes" /> <statusCode code= "completed" /> <effectiveTime value="523963682037" /> <value unit="%" xsi:type="PQ" value="69" /> <referenceRange> < observationRange> <text>42-75</text> </observationRange > </referenceRange> </observation> </component> < component> <observation moodCode="EVN" classCode="OBS"> < templateId root="2.16.840.1.880142.10..22.4.2" /> <id nullFlavor="NA " /> <code codeSystem="local" code="736-9" displayName="Automated blood lymphocytes/100 leukocytes" /> <statusCode code="completed" /> <effectiveTime value="570732789567" /> <value unit="%" xsi: type="PQ" value="23" /> <referenceRange> <observationRange> <text>12-44</text> </observationRange> </ referenceRange> </observation> </component> <component> <observation moodCode="EVN" classCode="OBS"> <templateId root= "216.840.1.331807.10..22.4.2" /> <id nullFlavor="NA" /> < code codeSystem="local" code="44920-0" displayName="Blood monocytes/100 leukocytes" /> <statusCode code="completed" /> <effectiveTime value="298664909263" /> <value unit="%" xsi:type="PQ" value="5" /> <referenceRange> <observationRange> <text>0-12 </text> </observationRange> </referenceRange> </ observation> </component> <component> <observation moodCode= "EVN" classCode="OBS"> <templateId root="216.840.1.204780.10.20.22.4.2 " /> <id nullFlavor="NA" /> <code codeSystem="local" code="713 -8" displayName="Automated blood eosinophils/100 leukocytes" /> < statusCode code="completed" /> <effectiveTime value="308254981573" /> <value unit="%" xsi:type="PQ" value="2" /> <referenceRange > <observationRange> <text>0-10</text> </ observationRange> </referenceRange> </observation> </ component> <component> <observation moodCode="EVN" classCode="OBS"> <templateId root="216.840.1.901057.10.20.22.4.2" /> <id nullFlavor="NA" /> <code codeSystem="local" code="706-2" displayName= "Automated blood basophils/100 leukocytes" /> <statusCode code= "completed" /> <effectiveTime value="524129856288" /> <value unit="%" xsi:type="PQ" value="0" /> <referenceRange> < observationRange> <text>0-10</text> </observationRange> </referenceRange> </observation> </component> < component> <observation moodCode="EVN" classCode="OBS"> < templateId root="216.840.1.949934.10.20.22.4.2" /> <id nullFlavor="NA " /> <code codeSystem="local" code="751-8" displayName="Blood neutrophils automated count (number/volume)" /> <statusCode code= "completed" /> <effectiveTime value="752641309729" /> <value unit="10*3" xsi:type="PQ" value="7.1" /> <referenceRange> < observationRange> <text>1.8-7.8</text> </ observationRange> </referenceRange> </observation> </ component> <component> <observation moodCode="EVN" classCode="OBS"> <templateId root="2.16.840.1.222701.10.20.22.4.2" /> <id nullFlavor="NA" /> <code codeSystem="local" code="731-0" displayName= "Blood lymphocytes automated count (number/volume)" /> <statusCode code ="completed" /> <effectiveTime value="372957038133" /> <value unit="10*3" xsi:type="PQ" value="2.4" /> <referenceRange> < observationRange> <text>1.0-4.0</text> </ observationRange> </referenceRange> </observation> </ component> <component> <observation moodCode="EVN" classCode="OBS"> <templateId root="2.16.840.1.712309.10.20.22.4.2" /> <id nullFlavor="NA" /> <code codeSystem="local" code="742-7" displayName= "Blood monocytes automated count (number/volume)" /> <statusCode code= "completed" /> <effectiveTime value="162307897666" /> <value unit="10*3" xsi:type="PQ" value="0.6" /> <referenceRange> < observationRange> <text>0.0-1.0</text> </ observationRange> </referenceRange> </observation> </ component> <component> <observation moodCode="EVN" classCode="OBS"> <templateId root="2.16.840.1.823098.10.20.22.4.2" /> <id nullFlavor="NA" /> <code codeSystem="local" code="711-2" displayName= "Automated eosinophil count" /> <statusCode code="completed" /> <effectiveTime value="878944702803" /> <value unit="10*3/uL" xsi: type="PQ" value="0.3" /> <referenceRange> <observationRange > <text>0.0-0.3</text> </observationRange> </ referenceRange> </observation> </component> <component> <observation moodCode="EVN" classCode="OBS"> <templateId root= "2.16.840.1.441506.10.20.22.4.2" /> <id nullFlavor="NA" /> < code codeSystem="local" code="704-7" displayName="Automated blood basophil count (count/volume)" /> <statusCode code="completed" /> < effectiveTime value="821245416287" /> <value unit="10*3/uL" xsi:type= "PQ" value="0.0" /> <referenceRange> <observationRange> <text>0.0-0.1</text> </observationRange> </ referenceRange> </observation> </component> </organizer> </entry > <entry> <organizer moodCode="EVN" classCode="BATTERY"> <templateId root="2.16.840.1.465475.10.20.22.4.1" /> <id nullFlavor="NA" /> <code codeSystem="local" code="45660-0" displayName="Comprehensive metabolic panel" / > <statusCode code="completed" /> <component> <observation moodCode="EVN" classCode="OBS"> <templateId root= "2.16.840.1.575304.10.20.22.4.2" /> <id nullFlavor="NA" /> < code codeSystem="local" code="2951-2" displayName="Serum or plasma sodium measurement (moles/volume)" /> <statusCode code="completed" /> <effectiveTime value="730699831463" /> <value unit="mmol/L" xsi:type= "PQ" value="139" /> <referenceRange> <observationRange> <text>135-145</text> </observationRange> </ referenceRange> </observation> </component> <component> <observation moodCode="EVN" classCode="OBS"> <templateId root= "216.840.1.368610.10.20.22.4.2" /> <id nullFlavor="NA" /> < code codeSystem="local" code="28206-11" displayName="Serum or plasma potassium measurement (moles/volume)" /> <statusCode code="completed" /> <effectiveTime value="933606131782" /> <value unit="mmol/L" xsi:type= "PQ" value="4.0" /> <referenceRange> <observationRange> <text>3.6-5.0</text> </observationRange> </ referenceRange> </observation> </component> <component> <observation moodCode="EVN" classCode="OBS"> <templateId root= "16.840.1.100677.10..22.4.2" /> <id nullFlavor="NA" /> < code codeSystem="local" code="" displayName="Serum or plasma chloride measurement (moles/volume)" /> <statusCode code="completed" /> <effectiveTime value="197630494287" /> <value unit="mmol/L" xsi:type= "PQ" value="107" /> <referenceRange> <observationRange> <text>98-107</text> </observationRange> </ referenceRange> </observation> </component> <component> <observation moodCode="EVN" classCode="OBS"> <templateId root= "16.840.1.217553.10.20.22.4.2" /> <id nullFlavor="NA" /> < code codeSystem="local" code="2027-12" displayName="Carbon dioxide" /> < statusCode code="completed" /> <effectiveTime value="909417746801" /> <value unit="mmol/L" xsi:type="PQ" value="25" /> < referenceRange> <observationRange> <text>21-32</text> </observationRange> </referenceRange> </observation> </component> <component> <observation moodCode="EVN" classCode= "OBS"> <templateId root="216.840.1.982260.10.20.22.4.2" /> < id nullFlavor="NA" /> <code codeSystem="local" code="11527-9" displayName="Serum or plasma anion gap determination (moles/volume)" /> <statusCode code="completed" /> <effectiveTime value="343852049088" / > <value unit="mmol/L" xsi:type="PQ" value="7" /> < referenceRange> <observationRange> <text>5-14</text> </observationRange> </referenceRange> </observation> </component> <component> <observation moodCode="EVN" classCode= "OBS"> <templateId root="16.840.1.052710.10..22.4.2" /> < id nullFlavor="NA" /> <code codeSystem="local" code="3094-0" displayName="Serum or plasma urea nitrogen measurement (mass/volume)" /> <statusCode code="completed" /> <effectiveTime value="319220864404" /> <value unit="mg/dL" xsi:type="PQ" value="8" /> < referenceRange> <observationRange> <text>7-18</text> </observationRange> </referenceRange> </observation> </component> <component> <observation moodCode="EVN" classCode= "OBS"> <templateId root="216.840.1.014673.10.20.22.4.2" /> < id nullFlavor="NA" /> <code codeSystem="local" code="2160-0" displayName="Serum or plasma creatinine measurement (mass/volume)" /> < statusCode code="completed" /> <effectiveTime value="396153520998" /> <value unit="mg/dL" xsi:type="PQ" value="0.75" /> < referenceRange> <observationRange> <text>0.60-1.30</text > </observationRange> </referenceRange> </observation > </component> <component> <observation moodCode="EVN" classCode="OBS"> <templateId root="2.16.840.1.481208.10.20.22.4.2" /> <id nullFlavor="NA" /> <code codeSystem="local" code="3097-3" displayName="Serum or plasma urea nitrogen/creatinine mass ratio" /> < statusCode code="completed" /> <effectiveTime value="712611405853" /> <value unit="" xsi:type="PQ" value="11" /> <referenceRange> <observationRange> <text>NRG</text> </ observationRange> </referenceRange> </observation> </ component> <component> <observation moodCode="EVN" classCode="OBS"> <templateId root="2.16.840.1.359165.10.20.22.4.2" /> <id nullFlavor="NA" /> <code codeSystem="local" code="48954-3" displayName= "Serum or plasma creatinine measurement with calculation of estimated glomerular filtration rate" /> <statusCode code="completed" /> <effectiveTime value="412711092559" /> <value unit="" xsi:type="PQ" value=">" /> <referenceRange> <observationRange> <text>NRG</text> </observationRange> </referenceRange > </observation> </component> <component> <observation moodCode="EVN" classCode="OBS"> <templateId root= "2.16.840.1.085514.10.20.22.4.2" /> <id nullFlavor="NA" /> < code codeSystem="local" code="2345-7" displayName="Serum or plasma glucose measurement (mass/volume)" /> <statusCode code="completed" /> <effectiveTime value="146308999095" /> <value unit="mg/dL" xsi:type="PQ " value="90" /> <referenceRange> <observationRange> <text>70-105</text> </observationRange> </ referenceRange> </observation> </component> <component> <observation moodCode="EVN" classCode="OBS"> <templateId root= "216.840.1.119885.10.20.22.4.2" /> <id nullFlavor="NA" /> < code codeSystem="local" code="73843-4" displayName="Serum or plasma calcium measurement (mass/volume)" /> <statusCode code="completed" /> <effectiveTime value="393716740535" /> <value unit="mg/dL" xsi:type="PQ " value="9.6" /> <referenceRange> <observationRange> <text>8.5-10.1</text> </observationRange> </ referenceRange> </observation> </component> <component> <observation moodCode="EVN" classCode="OBS"> <templateId root= "16.840.1.109545.10.20.22.4.2" /> <id nullFlavor="NA" /> < code codeSystem="local" code="1974-05" displayName="Serum or plasma total bilirubin measurement (mass/volume)" /> <statusCode code="completed" / > <effectiveTime value="957431698181" /> <value unit="mg/dL" xsi:type="PQ" value="0.2" /> <referenceRange> < observationRange> <text>0.1-1.0</text> </ observationRange> </referenceRange> </observation> </ component> <component> <observation moodCode="EVN" classCode="OBS"> <templateId root="216.840.1.718064.10.20.22.4.2" /> <id nullFlavor="NA" /> <code codeSystem="local" code="6768-6" displayName= "Serum or plasma alkaline phosphatase measurement (enzymatic activity/volume)" / > <statusCode code="completed" /> <effectiveTime value= "011128513956" /> <value unit="U/L" xsi:type="PQ" value="50" /> <referenceRange> <observationRange> <text>40-136</ text> </observationRange> </referenceRange> </ observation> </component> <component> <observation moodCode= "EVN" classCode="OBS"> <templateId root="16.840.1.106684.10..22.4.2 " /> <id nullFlavor="NA" /> <code codeSystem="local" code= "1920" displayName="Serum or plasma aspartate aminotransferase measurement ( enzymatic activity/volume)" /> <statusCode code="completed" /> <effectiveTime value="076496849210" /> <value unit="U/L" xsi:type="PQ " value="12" /> <referenceRange> <observationRange> <text>5-34</text> </observationRange> </referenceRange > </observation> </component> <component> <observation moodCode="EVN" classCode="OBS"> <templateId root= "216.840.1.312530.10.20.22.4.2" /> <id nullFlavor="NA" /> < code codeSystem="local" code="1742-" displayName="Serum or plasma alanine aminotransferase measurement (enzymatic activity/volume)" /> < statusCode code="completed" /> <effectiveTime value="079560451943" /> <value unit="U/L" xsi:type="PQ" value="11" /> <referenceRange > <observationRange> <text>0-55</text> </ observationRange> </referenceRange> </observation> </ component> <component> <observation moodCode="EVN" classCode="OBS"> <templateId root="2.16.840.1.644857.10.20.22.4.2" /> <id nullFlavor="NA" /> <code codeSystem="local" code="2885-2" displayName= "Serum or plasma protein measurement (mass/volume)" /> <statusCode code ="completed" /> <effectiveTime value="318545279317" /> <value unit="g/dL" xsi:type="PQ" value="7.4" /> <referenceRange> < observationRange> <text>6.4-8.2</text> </ observationRange> </referenceRange> </observation> </ component> <component> <observation moodCode="EVN" classCode="OBS"> <templateId root="2.16.840.1.960373.10.20.22.4.2" /> <id nullFlavor="NA" /> <code codeSystem="local" code="1751-7" displayName= "Serum or plasma albumin measurement (mass/volume)" /> <statusCode code ="completed" /> <effectiveTime value="366109995228" /> <value unit="g/dL" xsi:type="PQ" value="4.1" /> <referenceRange> < observationRange> <text>3.2-4.5</text> </ observationRange> </referenceRange> </observation> </ component> </organizer> </entry> <entry> <organizer moodCode="EVN" classCode="BATTERY"> <templateId root="05.27.840.1.814434....4.1" /> <id nullFlavor="NA" /> <code codeSystem="local" code="1987-08" displayName="Serum or plasma C reactive protein measurement (mass/volume)" /> <statusCode code="completed" /> <component> <observation moodCode="EVN" classCode="OBS"> <templateId root= "840.1.726169.10..4.2" /> <id nullFlavor="NA" /> < code codeSystem="local" code="1987-08" displayName="Serum or plasma C reactive protein measurement (mass/volume)" /> <statusCode code="completed" /> <effectiveTime value="520656171537" /> <value unit="mg/dL" xsi :type="PQ" value="1.27" /> <interpretationCode codeSystem="local" code= "" /> <referenceRange> <observationRange> < text>0.00-0.50</text> </observationRange> </referenceRange> </observation> </component> </organizer> </entry> <entry> < organizer moodCode="EVN" classCode="BATTERY"> <templateId root= "05.27.840.1.186122.01.28.22.4.1" /> <id nullFlavor="NA" /> <code codeSystem="local" code="56305-0" displayName="Complete urinalysis with reflex to culture" /> <statusCode code="completed" /> <component> < observation moodCode="EVN" classCode="OBS"> <templateId root= "05.27.840.1.627341.10..22.4.2" /> <id nullFlavor="NA" /> < code codeSystem="local" code="5778-6" displayName="Urine color determination" / > <statusCode code="completed" /> <effectiveTime value= "251466814971" /> <value unit="" xsi:type="PQ" value="YELLOW" /> <referenceRange> <observationRange> <text>NRG</text > </observationRange> </referenceRange> </observation > </component> <component> <observation moodCode="EVN" classCode="OBS"> <templateId root="05.27.840.1.890315.10.20.22.4.2" /> <id nullFlavor="NA" /> <code codeSystem="local" code="18754-7 " displayName="Urine clarity determination" /> <statusCode code= "completed" /> <effectiveTime value="232551965751" /> <value unit="" xsi:type="PQ" value="CLEAR" /> <referenceRange> < observationRange> <text>NRG</text> </observationRange> </referenceRange> </observation> </component> < component> <observation moodCode="EVN" classCode="OBS"> < templateId root="05.27.840.1.958354.10.20.22.4.2" /> <id nullFlavor="NA " /> <code codeSystem="local" code="5803-2" displayName="Urine pH measurement by test strip" /> <statusCode code="completed" /> <effectiveTime value="759541307555" /> <value unit="" xsi:type="PQ" value="6" /> <referenceRange> <observationRange> <text>5-9</text> </observationRange> </referenceRange> </observation> </component> <component> <observation moodCode="EVN" classCode="OBS"> <templateId root= "05.27.830.1.635412.10.22.4.2" /> <id nullFlavor="NA" /> < code codeSystem="local" code="5811-5" displayName="Specific gravity of urine by test strip" /> <statusCode code="completed" /> <effectiveTime value="942549065256" /> <value unit="" xsi:type="PQ" value="1.020" /> <referenceRange> <observationRange> <text>1.016 -1.022</text> </observationRange> </referenceRange> < /observation> </component> <component> <observation moodCode= "EVN" classCode="OBS"> <templateId root="05.27.840.1.352976.10.4.2 " /> <id nullFlavor="NA" /> <code codeSystem="local" code= "66632-1" displayName="Urine protein assay by test strip, semi-quantitative" /> <statusCode code="completed" /> <effectiveTime value= "104042631001" /> <value unit="" xsi:type="PQ" value="NEGATIVE" /> <referenceRange> <observationRange> <text>NEGATIVE </text> </observationRange> </referenceRange> </ observation> </component> <component> <observation moodCode= "EVN" classCode="OBS"> <templateId root="05.27.840.1.356195.10...4.2 " /> <id nullFlavor="NA" /> <code codeSystem="local" code= "93684-8" displayName="Urine glucose detection by automated test strip" /> <statusCode code="completed" /> <effectiveTime value="419549534441 " /> <value unit="" xsi:type="PQ" value="NEGATIVE" /> < referenceRange> <observationRange> <text>NEGATIVE</text > </observationRange> </referenceRange> </observation > </component> <component> <observation moodCode="EVN" classCode="OBS"> <templateId root="216.840.1.785852.10.22.4.2" /> <id nullFlavor="NA" /> <code codeSystem="local" code="75809-9 " displayName="Erythrocytes detection in urine sediment by light microscopy" /> <statusCode code="completed" /> <effectiveTime value= "" /> <value unit="" xsi:type="PQ" value="NEGATIVE" /> <referenceRange> <observationRange> <text>NEGATIVE </text> </observationRange> </referenceRange> </ observation> </component> <component> <observation moodCode= "EVN" classCode="OBS"> <templateId root="2.840.1.662770.01.28.22.4.2 " /> <id nullFlavor="NA" /> <code codeSystem="local" code= "91283-6" displayName="Urine ketones detection by automated test strip" /> <statusCode code="completed" /> <effectiveTime value=" " /> <value unit="" xsi:type="PQ" value="1+" /> < interpretationCode codeSystem="local" code="*" /> <referenceRange> <observationRange> <text>NEGATIVE</text> </ observationRange> </referenceRange> </observation> </ component> <component> <observation moodCode="EVN" classCode="OBS"> <templateId root="216.840.1.914330.10.22.4.2" /> <id nullFlavor="NA" /> <code codeSystem="local" code="5802-4" displayName= "Urine nitrite detection by test strip" /> <statusCode code="completed " /> <effectiveTime value="546958713391" /> <value unit="" xsi :type="PQ" value="NEGATIVE" /> <referenceRange> < observationRange> <text>NEGATIVE</text> </ observationRange> </referenceRange> </observation> </ component> <component> <observation moodCode="EVN" classCode="OBS"> <templateId root="216.840.1.770792.10..22.4.2" /> <id nullFlavor="NA" /> <code codeSystem="local" code="5770-3" displayName= "Urine total bilirubin detection by test strip" /> <statusCode code= "completed" /> <effectiveTime value="637645969548" /> <value unit="" xsi:type="PQ" value="NEGATIVE" /> <referenceRange> < observationRange> <text>NEGATIVE</text> </ observationRange> </referenceRange> </observation> </ component> <component> <observation moodCode="EVN" classCode="OBS"> <templateId root="05.27.840.1.891738.10...4.2" /> <id nullFlavor="NA" /> <code codeSystem="local" code="26189-0" displayName= "Urine urobilinogen measurement by automated test strip (mass/volume)" /> <statusCode code="completed" /> <effectiveTime value="143037848893 " /> <value unit="" xsi:type="PQ" value="NORMAL" /> < referenceRange> <observationRange> <text>NORMAL</text> </observationRange> </referenceRange> </observation> </component> <component> <observation moodCode="EVN" classCode ="OBS"> <templateId root="16.840.1.913151.10.20.22.4.2" /> < id nullFlavor="NA" /> <code codeSystem="local" code="5799-2" displayName="Urine leukocyte esterase detection by dipstick" /> < statusCode code="completed" /> <effectiveTime value="155546982197" /> <value unit="" xsi:type="PQ" value="1+" /> < interpretationCode codeSystem="local" code="*" /> <referenceRange> <observationRange> <text>NEGATIVE</text> </ observationRange> </referenceRange> </observation> </ component> <component> <observation moodCode="EVN" classCode="OBS"> <templateId root="2.16.840.1.049405.10.20.22.4.2" /> <id nullFlavor="NA" /> <code codeSystem="local" code="86759-1" displayName= "Automated urine sediment erythrocyte count by microscopy (number/high power field)" /> <statusCode code="completed" /> <effectiveTime value="150853143493" /> <value unit="" xsi:type="PQ" value="NONE" /> <referenceRange> <observationRange> <text>NRG</ text> </observationRange> </referenceRange> </ observation> </component> <component> <observation moodCode= "EVN" classCode="OBS"> <templateId root="2.16.840.1.735659.10..22.4.2 " /> <id nullFlavor="NA" /> <code codeSystem="local" code= "5821-4" displayName="Automated urine sediment leukocyte count by microscopy ( number/high power field)" /> <statusCode code="completed" /> < effectiveTime value="546673157131" /> <value unit="[HPF]" xsi:type="PQ " value="" /> <referenceRange> <observationRange> <text>NRG</text> </observationRange> </referenceRange> </observation> </component> <component> <observation moodCode="EVN" classCode="OBS"> <templateId root= "216.840.1.890350.10..22.4.2" /> <id nullFlavor="NA" /> < code codeSystem="local" code="10126-2" displayName="Bacteria detection in urine sediment by light microscopy" /> <statusCode code="completed" /> <effectiveTime value="775889097039" /> <value unit="" xsi:type="PQ " value="TRACE" /> <referenceRange> <observationRange> <text>NRG</text> </observationRange> </ referenceRange> </observation> </component> <component> <observation moodCode="EVN" classCode="OBS"> <templateId root= "216.840.1.292770.10..22.4.2" /> <id nullFlavor="NA" /> < code codeSystem="local" code="29149-0" displayName="Squamous epithelial cells detection in urine sediment by light microscopy" /> <statusCode code= "completed" /> <effectiveTime value="133332989654" /> <value unit="" xsi:type="PQ" value="5-10" /> <referenceRange> < observationRange> <text>NRG</text> </observationRange> </referenceRange> </observation> </component> < component> <observation moodCode="EVN" classCode="OBS"> < templateId root="16.840.1.375217.10.20.22.4.2" /> <id nullFlavor="NA " /> <code codeSystem="local" code="78898-6" displayName="Crystals detection in urine sediment by light microscopy" /> <statusCode code= "completed" /> <effectiveTime value="331028808685" /> <value unit="" xsi:type="PQ" value="NONE" /> <referenceRange> < observationRange> <text>NRG</text> </observationRange> </referenceRange> </observation> </component> < component> <observation moodCode="EVN" classCode="OBS"> < templateId root="05.27.840.1.175167.10.20.22.4.2" /> <id nullFlavor="NA " /> <code codeSystem="local" code="56646-0" displayName="Casts detection in urine sediment by light microscopy" /> <statusCode code= "completed" /> <effectiveTime value="202800004680" /> <value unit="" xsi:type="PQ" value="NONE" /> <referenceRange> < observationRange> <text>NRG</text> </observationRange> </referenceRange> </observation> </component> < component> <observation moodCode="EVN" classCode="OBS"> < templateId root="840.1.073801.10..22.4.2" /> <id nullFlavor="NA " /> <code codeSystem="local" code="8247-9" displayName="Mucus detection in urine sediment by light microscopy" /> <statusCode code= "completed" /> <effectiveTime value="659773972892" /> <value unit="" xsi:type="PQ" value="SMALL" /> <interpretationCode codeSystem= "local" code="*" /> <referenceRange> <observationRange> <text>NRG</text> </observationRange> </ referenceRange> </observation> </component> <component> <observation moodCode="EVN" classCode="OBS"> <templateId root= "05.27.840.1.269957.10.20.22.4.2" /> <id nullFlavor="NA" /> < code codeSystem="local" code="79446-3" displayName="Complete urinalysis with reflex to culture" /> <statusCode code="completed" /> < effectiveTime value="517538146158" /> <value unit="" xsi:type="PQ" value="NO" /> <referenceRange> <observationRange> <text>NRG</text> </observationRange> </referenceRange> </observation> </component> </organizer> </entry> <entry> < organizer moodCode="EVN" classCode="BATTERY"> <templateId root= "2.16.840.1.103860.10.20.22.4.1" /> <id nullFlavor="NA" /> <code codeSystem="local" code="01779-1" displayName="Urine drug screening test" /> <statusCode code="completed" /> <component> <observation moodCode ="EVN" classCode="OBS"> <templateId root= "2.16.840.1.491735.10.20.22.4.2" /> <id nullFlavor="NA" /> < code codeSystem="local" code="91112-2" displayName="Urine phencyclidine detection by screening method" /> <statusCode code="completed" /> <effectiveTime value="820639346688" /> <value unit="" xsi:type="PQ " value="NEGATIVE" /> <referenceRange> <observationRange> <text>NEGATIVE</text> </observationRange> </ referenceRange> </observation> </component> <component> <observation moodCode="EVN" classCode="OBS"> <templateId root= "2.16.840.1.884322.10.20.22.4.2" /> <id nullFlavor="NA" /> < code codeSystem="local" code="85964-3" displayName="Urine benzodiazepines detection by screening method" /> <statusCode code="completed" /> <effectiveTime value="453207449265" /> <value unit="" xsi:type="PQ " value="NEGATIVE" /> <referenceRange> <observationRange> <text>NEGATIVE</text> </observationRange> </ referenceRange> </observation> </component> <component> <observation moodCode="EVN" classCode="OBS"> <templateId root= "16.840.1.666046.10.22.4.2" /> <id nullFlavor="NA" /> < code codeSystem="local" code="3397-7" displayName="Urine cocaine detection" /> <statusCode code="completed" /> <effectiveTime value= "" /> <value unit="" xsi:type="PQ" value="NEGATIVE" /> <referenceRange> <observationRange> <text>NEGATIVE </text> </observationRange> </referenceRange> </ observation> </component> <component> <observation moodCode= "EVN" classCode="OBS"> <templateId root="05.27.840.1.756800.1022.4.2 " /> <id nullFlavor="NA" /> <code codeSystem="local" code= "10149-8" displayName="Urine amphetamines detection by screening method" /> <statusCode code="completed" /> <effectiveTime value= "150827252308" /> <value unit="" xsi:type="PQ" value="NEGATIVE" /> <referenceRange> <observationRange> <text>NEGATIVE </text> </observationRange> </referenceRange> </ observation> </component> <component> <observation moodCode= "EVN" classCode="OBS"> <templateId root="16.840.1.099627.10.20.22.4.2 " /> <id nullFlavor="NA" /> <code codeSystem="local" code= "66994-9" displayName="Urine methamphetamine detection by screening method" /> <statusCode code="completed" /> <effectiveTime value= "053741742510" /> <value unit="" xsi:type="PQ" value="NEGATIVE" /> <referenceRange> <observationRange> <text>NEGATIVE </text> </observationRange> </referenceRange> </ observation> </component> <component> <observation moodCode= "EVN" classCode="OBS"> <templateId root="216.840.1.980724.10..22.4.2 " /> <id nullFlavor="NA" /> <code codeSystem="local" code= "68509-1" displayName="Urine cannabinoids detection by screening method" /> <statusCode code="completed" /> <effectiveTime value= "082519555195" /> <value unit="" xsi:type="PQ" value="NEGATIVE" /> <referenceRange> <observationRange> <text>NEGATIVE </text> </observationRange> </referenceRange> </ observation> </component> <component> <observation moodCode= "EVN" classCode="OBS"> <templateId root="16.840.1.770797.10..22.4.2 " /> <id nullFlavor="NA" /> <code codeSystem="local" code= "90095-6" displayName="Urine opiates detection by screening method" /> <statusCode code="completed" /> <effectiveTime value="670197524656" /> <value unit="" xsi:type="PQ" value="NEGATIVE" /> < referenceRange> <observationRange> <text>NEGATIVE</text > </observationRange> </referenceRange> </observation > </component> <component> <observation moodCode="EVN" classCode="OBS"> <templateId root="216.840.1.712123..20.22.4.2" /> <id nullFlavor="NA" /> <code codeSystem="local" code="3377-9" displayName="Urine barbiturates detection" /> <statusCode code= "completed" /> <effectiveTime value="295590692551" /> <value unit="" xsi:type="PQ" value="NEGATIVE" /> <referenceRange> < observationRange> <text>NEGATIVE</text> </ observationRange> </referenceRange> </observation> </ component> <component> <observation moodCode="EVN" classCode="OBS"> <templateId root="2.16.840.1.235846.10..22.4.2" /> <id nullFlavor="NA" /> <code codeSystem="local" code="37339-4" displayName= "Screening urine tricyclic antidepressants detection" /> <statusCode code="completed" /> <effectiveTime value="626024917190" /> < value unit="" xsi:type="PQ" value="NEGATIVE" /> <referenceRange> <observationRange> <text>NEGATIVE</text> </ observationRange> </referenceRange> </observation> </ component> <component> <observation moodCode="EVN" classCode="OBS"> <templateId root="2.16.840.1.920145.10..22.4.2" /> <id nullFlavor="NA" /> <code codeSystem="local" code="97605-2" displayName= "Urine methadone detection by screening method" /> <statusCode code= "completed" /> <effectiveTime value="021773873300" /> <value unit="" xsi:type="PQ" value="NEGATIVE" /> <referenceRange> < observationRange> <text>NEGATIVE</text> </ observationRange> </referenceRange> </observation> </ component> <component> <observation moodCode="EVN" classCode="OBS"> <templateId root="05.27.840.1.656597.10..22.4.2" /> <id nullFlavor="NA" /> <code codeSystem="local" code="65055-2" displayName= "Urine oxycodone detection" /> <statusCode code="completed" /> <effectiveTime value="702500219303" /> <value unit="" xsi:type="PQ" value="NEGATIVE" /> <referenceRange> <observationRange> <text>NEGATIVE</text> </observationRange> </ referenceRange> </observation> </component> <component> <observation moodCode="EVN" classCode="OBS"> <templateId root= "840.1.510657...4.2" /> <id nullFlavor="NA" /> < code codeSystem="local" code="20884-1" displayName="Urine propoxyphene detection " /> <statusCode code="completed" /> <effectiveTime value= "738077820381" /> <value unit="" xsi:type="PQ" value="NEGATIVE" /> <referenceRange> <observationRange> <text>NEGATIVE </text> </observationRange> </referenceRange> </ observation> </component> </organizer> </entry> <entry> <organizer moodCode="EVN" classCode="BATTERY"> <templateId root= "05.27.840.1.561584.10.20.22.4.1" /> <id nullFlavor="NA" /> <code codeSystem="local" code="59774-2" displayName="Complete urinalysis with reflex to culture" /> <statusCode code="completed" /> <component> < observation moodCode="EVN" classCode="OBS"> <templateId root= "05.27.840.1.020694..22.4.2" /> <id nullFlavor="NA" /> < code codeSystem="local" code="5778-6" displayName="Urine color determination" / > <statusCode code="completed" /> <effectiveTime value= "577503861448" /> <value unit="" xsi:type="PQ" value="YELLOW" /> <referenceRange> <observationRange> <text>NRG</text > </observationRange> </referenceRange> </observation > </component> <component> <observation moodCode="EVN" classCode="OBS"> <templateId root="2.16.840.1.577062.10...4.2" /> <id nullFlavor="NA" /> <code codeSystem="local" code="08851-5 " displayName="Urine clarity determination" /> <statusCode code= "completed" /> <effectiveTime value="385226373267" /> <value unit="" xsi:type="PQ" value="CLEAR" /> <referenceRange> < observationRange> <text>NRG</text> </observationRange> </referenceRange> </observation> </component> < component> <observation moodCode="EVN" classCode="OBS"> < templateId root="2.16.840.1.207313.10..22.4.2" /> <id nullFlavor="NA " /> <code codeSystem="local" code="5803-2" displayName="Urine pH measurement by test strip" /> <statusCode code="completed" /> <effectiveTime value="276565159925" /> <value unit="" xsi:type="PQ" value="6.5" /> <referenceRange> <observationRange> <text>5-9</text> </observationRange> </referenceRange> </observation> </component> <component> <observation moodCode="EVN" classCode="OBS"> <templateId root= "16.840.1.368979.10.20.22.4.2" /> <id nullFlavor="NA" /> < code codeSystem="local" code="5811-5" displayName="Specific gravity of urine by test strip" /> <statusCode code="completed" /> <effectiveTime value="143939874314" /> <value unit="" xsi:type="PQ" value="1.020" /> <referenceRange> <observationRange> <text>1.016 -1.022</text> </observationRange> </referenceRange> < /observation> </component> <component> <observation moodCode= "EVN" classCode="OBS"> <templateId root="05.27.840.1.639312.10.22.4.2 " /> <id nullFlavor="NA" /> <code codeSystem="local" code= "38535-7" displayName="Urine protein assay by test strip, semi-quantitative" /> <statusCode code="completed" /> <effectiveTime value= "291324830371" /> <value unit="" xsi:type="PQ" value="2+" /> < interpretationCode codeSystem="local" code="*" /> <referenceRange> <observationRange> <text>NEGATIVE</text> </ observationRange> </referenceRange> </observation> </ component> <component> <observation moodCode="EVN" classCode="OBS"> <templateId root="16.840.1.223840.10.20.22.4.2" /> <id nullFlavor="NA" /> <code codeSystem="local" code="36472-3" displayName= "Urine glucose detection by automated test strip" /> <statusCode code= "completed" /> <effectiveTime value="195607443924" /> <value unit="" xsi:type="PQ" value="NEGATIVE" /> <referenceRange> < observationRange> <text>NEGATIVE</text> </ observationRange> </referenceRange> </observation> </ component> <component> <observation moodCode="EVN" classCode="OBS"> <templateId root="05.27.840.1.133289.10.20.22.4.2" /> <id nullFlavor="NA" /> <code codeSystem="local" code="10543-5" displayName= "Erythrocytes detection in urine sediment by light microscopy" /> < statusCode code="completed" /> <effectiveTime value="260298127380" /> <value unit="" xsi:type="PQ" value="3+" /> < interpretationCode codeSystem="local" code="*" /> <referenceRange> <observationRange> <text>NEGATIVE</text> </ observationRange> </referenceRange> </observation> </ component> <component> <observation moodCode="EVN" classCode="OBS"> <templateId root="840.1.417111.10..4.2" /> <id nullFlavor="NA" /> <code codeSystem="local" code="13553-8" displayName= "Urine ketones detection by automated test strip" /> <statusCode code= "completed" /> <effectiveTime value="951491199297" /> <value unit="" xsi:type="PQ" value="NEGATIVE" /> <referenceRange> < observationRange> <text>NEGATIVE</text> </ observationRange> </referenceRange> </observation> </ component> <component> <observation moodCode="EVN" classCode="OBS"> <templateId root="05.27.840.1.378630.10.20.22.4.2" /> <id nullFlavor="NA" /> <code codeSystem="local" code="5802-4" displayName= "Urine nitrite detection by test strip" /> <statusCode code="completed " /> <effectiveTime value="825032624528" /> <value unit="" xsi :type="PQ" value="NEGATIVE" /> <referenceRange> < observationRange> <text>NEGATIVE</text> </ observationRange> </referenceRange> </observation> </ component> <component> <observation moodCode="EVN" classCode="OBS"> <templateId root="2.16.840.1.100063.10.20.22.4.2" /> <id nullFlavor="NA" /> <code codeSystem="local" code="5770-3" displayName= "Urine total bilirubin detection by test strip" /> <statusCode code= "completed" /> <effectiveTime value="365632008743" /> <value unit="" xsi:type="PQ" value="NEGATIVE" /> <referenceRange> < observationRange> <text>NEGATIVE</text> </ observationRange> </referenceRange> </observation> </ component> <component> <observation moodCode="EVN" classCode="OBS"> <templateId root="2.16.840.1.312730.10.20.22.4.2" /> <id nullFlavor="NA" /> <code codeSystem="local" code="40772-6" displayName= "Urine urobilinogen measurement by automated test strip (mass/volume)" /> <statusCode code="completed" /> <effectiveTime value="793580282813 " /> <value unit="mg/dL" xsi:type="PQ" value="4" /> < interpretationCode codeSystem="local" code="*" /> <referenceRange> <observationRange> <text>NORMAL</text> </ observationRange> </referenceRange> </observation> </ component> <component> <observation moodCode="EVN" classCode="OBS"> <templateId root="16.840.1.116360.10.20.22.4.2" /> <id nullFlavor="NA" /> <code codeSystem="local" code="5799-2" displayName= "Urine leukocyte esterase detection by dipstick" /> <statusCode code= "completed" /> <effectiveTime value="901244790163" /> <value unit="" xsi:type="PQ" value="1+" /> <interpretationCode codeSystem= "local" code="*" /> <referenceRange> <observationRange> <text>NEGATIVE</text> </observationRange> </ referenceRange> </observation> </component> <component> <observation moodCode="EVN" classCode="OBS"> <templateId root= "16.840.1.217672.10...4.2" /> <id nullFlavor="NA" /> < code codeSystem="local" code="13983-2" displayName="Automated urine sediment erythrocyte count by microscopy (number/high power field)" /> < statusCode code="completed" /> <effectiveTime value="412835322356" /> <value unit="[HPF]" xsi:type="PQ" value="" /> <referenceRange > <observationRange> <text>NRG</text> </ observationRange> </referenceRange> </observation> </ component> <component> <observation moodCode="EVN" classCode="OBS"> <templateId root="16.840.1.552710.10.20.22.4.2" /> <id nullFlavor="NA" /> <code codeSystem="local" code="5821-4" displayName= "Automated urine sediment leukocyte count by microscopy (number/high power field )" /> <statusCode code="completed" /> <effectiveTime value= "766357590801" /> <value unit="" xsi:type="PQ" value="RARE" /> <referenceRange> <observationRange> <text>NRG</text> </observationRange> </referenceRange> </observation> </component> <component> <observation moodCode="EVN" classCode ="OBS"> <templateId root="05.27.840.1.322099.10.20.22.4.2" /> < id nullFlavor="NA" /> <code codeSystem="local" code="93651-0" displayName="Bacteria detection in urine sediment by light microscopy" /> <statusCode code="completed" /> <effectiveTime value="877998523648 " /> <value unit="" xsi:type="PQ" value="TRACE" /> < referenceRange> <observationRange> <text>NRG</text> </observationRange> </referenceRange> </observation> </component> <component> <observation moodCode="EVN" classCode= "OBS"> <templateId root="840.1.571758.10..22.4.2" /> < id nullFlavor="NA" /> <code codeSystem="local" code="55550-5" displayName="Squamous epithelial cells detection in urine sediment by light microscopy" /> <statusCode code="completed" /> <effectiveTime value="345743166128" /> <value unit="" xsi:type="PQ" value="-" /> <interpretationCode codeSystem="local" code="*" /> < referenceRange> <observationRange> <text>NRG</text> </observationRange> </referenceRange> </observation> </component> <component> <observation moodCode="EVN" classCode= "OBS"> <templateId root="05.27.840.1.658294.10.20.22.4.2" /> < id nullFlavor="NA" /> <code codeSystem="local" code="11473-8" displayName="Crystals detection in urine sediment by light microscopy" /> <statusCode code="completed" /> <effectiveTime value="705605813439 " /> <value unit="" xsi:type="PQ" value="NONE" /> < referenceRange> <observationRange> <text>NRG</text> </observationRange> </referenceRange> </observation> </component> <component> <observation moodCode="EVN" classCode= "OBS"> <templateId root="2.16.840.1.912216.10.20.22.4.2" /> < id nullFlavor="NA" /> <code codeSystem="local" code="56850-9" displayName="Casts detection in urine sediment by light microscopy" /> <statusCode code="completed" /> <effectiveTime value="544462231354" /> <value unit="" xsi:type="PQ" value="NONE" /> <referenceRange > <observationRange> <text>NRG</text> </ observationRange> </referenceRange> </observation> </ component> <component> <observation moodCode="EVN" classCode="OBS"> <templateId root="2.16.840.1.813482.10.20.22.4.2" /> <id nullFlavor="NA" /> <code codeSystem="local" code="8247-9" displayName= "Mucus detection in urine sediment by light microscopy" /> <statusCode code="completed" /> <effectiveTime value="217260528458" /> < value unit="" xsi:type="PQ" value="SMALL" /> <interpretationCode codeSystem="local" code="*" /> <referenceRange> < observationRange> <text>NRG</text> </observationRange> </referenceRange> </observation> </component> < component> <observation moodCode="EVN" classCode="OBS"> < templateId root="05.27.840.1.235229.10.20.22.4.2" /> <id nullFlavor="NA " /> <code codeSystem="local" code="38356-1" displayName="Complete urinalysis with reflex to culture" /> <statusCode code="completed" /> <effectiveTime value="292612969058" /> <value unit="" xsi:type ="PQ" value="NO" /> <referenceRange> <observationRange> <text>NRG</text> </observationRange> </ referenceRange> </observation> </component> </organizer> </entry > <entry> <organizer moodCode="EVN" classCode="BATTERY"> <templateId root="05.27.840.1.550170.10.20.22.4.1" /> <id nullFlavor="NA" /> <code codeSystem="local" code="08024-3" displayName="Chlamydia trachomatis DNA detection by probe and signal amplification method" /> <statusCode code= "completed" /> <component> <observation moodCode="EVN" classCode= "OBS"> <templateId root="05.27.840.1.475771.10.20.22.4.2" /> < id nullFlavor="NA" /> <code codeSystem="local" code="36978-7" displayName="Chlamydia trachomatis DNA detection by probe and target amplification method" /> <statusCode code="completed" /> < effectiveTime value="801487744938" /> <value unit="" xsi:type="PQ" value="Not Detected" /> <referenceRange> <observationRange> <text>Not Detected</text> </observationRange> </referenceRange> </observation> </component> </organizer> </ entry> <entry> <organizer moodCode="EVN" classCode="BATTERY"> < templateId root="840.1.964151.10..22.4.1" /> <id nullFlavor="NA" /> <code codeSystem="local" code="49029-4" displayName="Neisseria gonorrhoeae DNA detection by probe and signal amplification method" /> < statusCode code="completed" /> <component> <observation moodCode= "EVN" classCode="OBS"> <templateId root="05.27.840.1.184398.10.22.4.2 " /> <id nullFlavor="NA" /> <code codeSystem="local" code= "64146-5" displayName="Gonorrhea amp DNA-urine" /> <statusCode code= "completed" /> <effectiveTime value="" /> <value unit="" xsi:type="PQ" value="Not Detected" /> <referenceRange> <observationRange> <text>Not Detected</text> </ observationRange> </referenceRange> </observation> </ component> </organizer> </entry> <entry> <organizer moodCode="EVN" classCode="BATTERY"> <templateId root="05.27.840.1.605241.10..4.1" /> <id nullFlavor="NA" /> <code codeSystem="local" code="55467-4" displayName="Bacteria identification in genital specimen by aerobe culture" /> <statusCode code="completed" /> <component> <observation moodCode="EVN" classCode="OBS"> <templateId root= "05.27.840.1.950535.10..22.4.2" /> <id nullFlavor="NA" /> < code codeSystem="local" code="FTEXTERNAL" displayName="FREE TEXT EXTERNAL" /> <statusCode code="completed" /> <effectiveTime value= "" /> <value unit="" xsi:type="PQ" value="PLUS NORMAL NYA " /> <referenceRange> <observationRange> <text> NRG</text> </observationRange> </referenceRange> </ observation> </component> <component> <observation moodCode= "EVN" classCode="OBS"> <templateId root="05.27.840.1.681240.10.20.22.4.2 " /> <id nullFlavor="NA" /> <code codeSystem="local" code="G" displayName="QUANTITY OF GROWTH" /> <statusCode code="completed" /> <effectiveTime value="546593887576" /> <value unit="" xsi:type= "PQ" value="Moderate Growth" /> <referenceRange> < observationRange> <text>NRG</text> </observationRange> </referenceRange> </observation> </component> < component> <observation moodCode="EVN" classCode="OBS"> < templateId root="840.1.128151.10.20.22.4.2" /> <id nullFlavor="NA " /> <code codeSystem="local" code="40760-0" displayName="Bacteria identification in genital specimen by aerobe culture" /> <statusCode code="completed" /> <effectiveTime value="645357875637" /> < value unit="" xsi:type="PQ" value="39966081" /> <referenceRange> <observationRange> <text>NRG</text> </ observationRange> </referenceRange> </observation> </ component> </organizer> </entry> <entry> <organizer moodCode="EVN" classCode="BATTERY"> <templateId root="05.27.840.1.042651.10.20.22.4.1" /> <id nullFlavor="NA" /> <code codeSystem="local" code="667-6" displayName="Microscopic examination by OLGA preparation" /> <statusCode code="completed" /> <component> <observation moodCode="EVN" classCode="OBS"> <templateId root="216.840.1.611026.10..22.4.2" /> <id nullFlavor="NA" /> <code codeSystem="local" code="667-6" displayName="Microscopic examination by OLGA preparation" /> < statusCode code="completed" /> <effectiveTime value="797940814367" /> <value unit="" xsi:type="PQ" value="TNP" /> <referenceRange> <observationRange> <text>NRG</text> </ observationRange> </referenceRange> </observation> </ component> </organizer> </entry> <entry> <organizer moodCode="EVN" classCode="BATTERY"> <templateId root="216.840.1.127534.10..22.4.1" /> <id nullFlavor="NA" /> <code codeSystem="local" code="680-9" displayName="Microscopic examination by wet preparation" /> <statusCode code="completed" /> <component> <observation moodCode="EVN" classCode="OBS"> <templateId root="2.16.840.1.012681.10..22.4.2" /> <id nullFlavor="NA" /> <code codeSystem="local" code= "WETRESULT" displayName="WET PREP RESULTS" /> <statusCode code= "completed" /> <effectiveTime value="129558560374" /> <value unit="" xsi:type="PQ" value="03-15-17/" /> <referenceRange> <observationRange> <text>NRG</text> </observationRange > </referenceRange> </observation> </component> </ organizer> </entry> <entry> <organizer moodCode="EVN" classCode="BATTERY"> <templateId root="216.840.1.121257.10..4.1" /> <id nullFlavor= "NA" /> <code codeSystem="local" code="71036-0" displayName="Complete urinalysis with reflex to culture" /> <statusCode code="completed" /> <component> <observation moodCode="EVN" classCode="OBS"> < templateId root="2.840.1.197407.10..4.2" /> <id nullFlavor="NA " /> <code codeSystem="local" code="5778-6" displayName="Urine color determination" /> <statusCode code="completed" /> < effectiveTime value="" /> <value unit="" xsi:type="PQ" value="STRAW" /> <referenceRange> <observationRange> <text>NRG</text> </observationRange> </referenceRange > </observation> </component> <component> <observation moodCode="EVN" classCode="OBS"> <templateId root= "16.840.1.687435.10..4.2" /> <id nullFlavor="NA" /> < code codeSystem="local" code="25661-6" displayName="Urine clarity determination " /> <statusCode code="completed" /> <effectiveTime value= "" /> <value unit="" xsi:type="PQ" value="CLEAR" /> <referenceRange> <observationRange> <text>NRG</text> </observationRange> </referenceRange> </observation > </component> <component> <observation moodCode="EVN" classCode="OBS"> <templateId root="216.840.1.421326.01.28.224.2" /> <id nullFlavor="NA" /> <code codeSystem="local" code="5803-2" displayName="Urine pH measurement by test strip" /> <statusCode code= "completed" /> <effectiveTime value="" /> <value unit="" xsi:type="PQ" value="6" /> <referenceRange> < observationRange> <text>5-9</text> </observationRange> </referenceRange> </observation> </component> < component> <observation moodCode="EVN" classCode="OBS"> < templateId root="216.840.1.675595.01.28.22.4.2" /> <id nullFlavor="NA " /> <code codeSystem="local" code="5811-5" displayName="Specific gravity of urine by test strip" /> <statusCode code="completed" /> <effectiveTime value="" /> <value unit="" xsi:type= "PQ" value="1.005" /> <interpretationCode codeSystem="local" code="" /> <referenceRange> <observationRange> <text> 1.016-1.022</text> </observationRange> </referenceRange> </observation> </component> <component> <observation moodCode="EVN" classCode="OBS"> <templateId root= "216.840.1.804862.01.28.22.4.2" /> <id nullFlavor="NA" /> < code codeSystem="local" code="80106-8" displayName="Urine protein assay by test strip, semi-quantitative" /> <statusCode code="completed" /> < effectiveTime value="" /> <value unit="" xsi:type="PQ" value="NEGATIVE" /> <referenceRange> <observationRange> <text>NEGATIVE</text> </observationRange> </ referenceRange> </observation> </component> <component> <observation moodCode="EVN" classCode="OBS"> <templateId root= "216.840.1.677855.10.22.4.2" /> <id nullFlavor="NA" /> < code codeSystem="local" code="06111-1" displayName="Urine glucose detection by automated test strip" /> <statusCode code="completed" /> < effectiveTime value="" /> <value unit="" xsi:type="PQ" value="NEGATIVE" /> <referenceRange> <observationRange> <text>NEGATIVE</text> </observationRange> </ referenceRange> </observation> </component> <component> <observation moodCode="EVN" classCode="OBS"> <templateId root= "05.27.840.1.102461.01.28.22.4.2" /> <id nullFlavor="NA" /> < code codeSystem="local" code="24964-7" displayName="Erythrocytes detection in urine sediment by light microscopy" /> <statusCode code="completed" /> <effectiveTime value="" /> <value unit="" xsi: type="PQ" value="NEGATIVE" /> <referenceRange> < observationRange> <text>NEGATIVE</text> </ observationRange> </referenceRange> </observation> </ component> <component> <observation moodCode="EVN" classCode="OBS"> <templateId root="05.27.840.1.953592.10.22.4.2" /> <id nullFlavor="NA" /> <code codeSystem="local" code="48545-1" displayName= "Urine ketones detection by automated test strip" /> <statusCode code= "completed" /> <effectiveTime value="" /> <value unit="" xsi:type="PQ" value="NEGATIVE" /> <referenceRange> < observationRange> <text>NEGATIVE</text> </ observationRange> </referenceRange> </observation> </ component> <component> <observation moodCode="EVN" classCode="OBS"> <templateId root="05.27.840.1.524629.10.20.22.4.2" /> <id nullFlavor="NA" /> <code codeSystem="local" code="5802-4" displayName= "Urine nitrite detection by test strip" /> <statusCode code="completed " /> <effectiveTime value="792348142777" /> <value unit="" xsi :type="PQ" value="NEGATIVE" /> <referenceRange> < observationRange> <text>NEGATIVE</text> </ observationRange> </referenceRange> </observation> </ component> <component> <observation moodCode="EVN" classCode="OBS"> <templateId root="05.27.840.1.053078.102022.4.2" /> <id nullFlavor="NA" /> <code codeSystem="local" code="5770-3" displayName= "Urine total bilirubin detection by test strip" /> <statusCode code= "completed" /> <effectiveTime value="769825333191" /> <value unit="" xsi:type="PQ" value="NEGATIVE" /> <referenceRange> < observationRange> <text>NEGATIVE</text> </ observationRange> </referenceRange> </observation> </ component> <component> <observation moodCode="EVN" classCode="OBS"> <templateId root="05.27.840.1.539471.102022.4.2" /> <id nullFlavor="NA" /> <code codeSystem="local" code="33239-8" displayName= "Urine urobilinogen measurement by automated test strip (mass/volume)" /> <statusCode code="completed" /> <effectiveTime value="141986770181 " /> <value unit="" xsi:type="PQ" value="NORMAL" /> < referenceRange> <observationRange> <text>NORMAL</text> </observationRange> </referenceRange> </observation> </component> <component> <observation moodCode="EVN" classCode ="OBS"> <templateId root="216.840.1.785364.10...4.2" /> < id nullFlavor="NA" /> <code codeSystem="local" code="5799-2" displayName="Urine leukocyte esterase detection by dipstick" /> < statusCode code="completed" /> <effectiveTime value="016936744611" /> <value unit="" xsi:type="PQ" value="NEGATIVE" /> < referenceRange> <observationRange> <text>NEGATIVE</text > </observationRange> </referenceRange> </observation > </component> <component> <observation moodCode="EVN" classCode="OBS"> <templateId root="16.840.1.114720.10..22.4.2" /> <id nullFlavor="NA" /> <code codeSystem="local" code="75902-8 " displayName="Automated urine sediment erythrocyte count by microscopy (number/ high power field)" /> <statusCode code="completed" /> < effectiveTime value="771100224462" /> <value unit="" xsi:type="PQ" value="NONE" /> <referenceRange> <observationRange> <text>NRG</text> </observationRange> </referenceRange > </observation> </component> <component> <observation moodCode="EVN" classCode="OBS"> <templateId root= "16.840.1.028466.01.28.22.4.2" /> <id nullFlavor="NA" /> < code codeSystem="local" code="5821-4" displayName="Automated urine sediment leukocyte count by microscopy (number/high power field)" /> < statusCode code="completed" /> <effectiveTime value="" /> <value unit="" xsi:type="PQ" value="NONE" /> <referenceRange> <observationRange> <text>NRG</text> </ observationRange> </referenceRange> </observation> </ component> <component> <observation moodCode="EVN" classCode="OBS"> <templateId root="2.16.840.1.280844.01.28.22.4.2" /> <id nullFlavor="NA" /> <code codeSystem="local" code="63200-1" displayName= "Bacteria detection in urine sediment by light microscopy" /> < statusCode code="completed" /> <effectiveTime value="" /> <value unit="" xsi:type="PQ" value="TRACE" /> <referenceRange > <observationRange> <text>NRG</text> </ observationRange> </referenceRange> </observation> </ component> <component> <observation moodCode="EVN" classCode="OBS"> <templateId root="216.840.1.749158.10..4.2" /> <id nullFlavor="NA" /> <code codeSystem="local" code="07126-8" displayName= "Squamous epithelial cells detection in urine sediment by light microscopy" /> <statusCode code="completed" /> <effectiveTime value= "" /> <value unit="" xsi:type="PQ" value="2-5" /> <referenceRange> <observationRange> <text>NRG</text> </observationRange> </referenceRange> </observation> </component> <component> <observation moodCode="EVN" classCode= "OBS"> <templateId root="216.840.1.470382.10..22.4.2" /> < id nullFlavor="NA" /> <code codeSystem="local" code="13310-4" displayName="Crystals detection in urine sediment by light microscopy" /> <statusCode code="completed" /> <effectiveTime value=" " /> <value unit="" xsi:type="PQ" value="NONE" /> < referenceRange> <observationRange> <text>NRG</text> </observationRange> </referenceRange> </observation> </component> <component> <observation moodCode="EVN" classCode= "OBS"> <templateId root="05.27.840.1.459212.01.28.22.4.2" /> < id nullFlavor="NA" /> <code codeSystem="local" code="61292-3" displayName="Casts detection in urine sediment by light microscopy" /> <statusCode code="completed" /> <effectiveTime value="" /> <value unit="" xsi:type="PQ" value="NONE" /> <referenceRange > <observationRange> <text>NRG</text> </ observationRange> </referenceRange> </observation> </ component> <component> <observation moodCode="EVN" classCode="OBS"> <templateId root="216.840.1.849293.10..22.4.2" /> <id nullFlavor="NA" /> <code codeSystem="local" code="8247-9" displayName= "Mucus detection in urine sediment by light microscopy" /> <statusCode code="completed" /> <effectiveTime value="" /> < value unit="" xsi:type="PQ" value="NEGATIVE" /> <referenceRange> <observationRange> <text>NRG</text> </ observationRange> </referenceRange> </observation> </ component> <component> <observation moodCode="EVN" classCode="OBS"> <templateId root="16.840.1.077723.10.20.22.4.2" /> <id nullFlavor="NA" /> <code codeSystem="local" code="35045-8" displayName= "Complete urinalysis with reflex to culture" /> <statusCode code= "completed" /> <effectiveTime value="538031862616" /> <value unit="" xsi:type="PQ" value="NO" /> <referenceRange> < observationRange> <text>NRG</text> </observationRange> </referenceRange> </observation> </component> </ organizer> </entry> <entry> <organizer moodCode="EVN" classCode="BATTERY"> <templateId root="16.840.1.811560.10..22.4.1" /> <id nullFlavor= "NA" /> <code codeSystem="local" code="08510-6" displayName="Complete blood count (CBC) with automated white blood cell (WBC) differential" /> < statusCode code="completed" /> <component> <observation moodCode= "EVN" classCode="OBS"> <templateId root="16.840.1.918168.10.20.22.4.2 " /> <id nullFlavor="NA" /> <code codeSystem="local" code= "6690-2" displayName="Blood leukocytes automated count (number/volume)" /> <statusCode code="completed" /> <effectiveTime value="366215089177 " /> <value unit="10*3/uL" xsi:type="PQ" value="9.0" /> < referenceRange> <observationRange> <text>4.3-11.0</text > </observationRange> </referenceRange> </observation > </component> <component> <observation moodCode="EVN" classCode="OBS"> <templateId root="2.16.840.1.769109.10.20.22.4.2" /> <id nullFlavor="NA" /> <code codeSystem="local" code="789-8" displayName="Blood erythrocytes automated count (number/volume)" /> < statusCode code="completed" /> <effectiveTime value="461567687134" /> <value unit="10*6/uL" xsi:type="PQ" value="4.38" /> < referenceRange> <observationRange> <text>4.35-5.85</text > </observationRange> </referenceRange> </observation > </component> <component> <observation moodCode="EVN" classCode="OBS"> <templateId root="216.840.1.270067.10..22.4.2" /> <id nullFlavor="NA" /> <code codeSystem="local" code="14881-0 " displayName="Venous blood hemoglobin measurement (mass/volume)" /> < statusCode code="completed" /> <effectiveTime value="170070633153" /> <value unit="g/dL" xsi:type="PQ" value="11.8" /> < referenceRange> <observationRange> <text>11.5-16.0</text > </observationRange> </referenceRange> </observation > </component> <component> <observation moodCode="EVN" classCode="OBS"> <templateId root="2.16.840.1.241513.10.20.22.4.2" /> <id nullFlavor="NA" /> <code codeSystem="local" code="37561-1 " displayName="Blood hematocrit (volume fraction)" /> <statusCode code= "completed" /> <effectiveTime value="822358255026" /> <value unit="%" xsi:type="PQ" value="37" /> <referenceRange> < observationRange> <text>35-52</text> </observationRange > </referenceRange> </observation> </component> < component> <observation moodCode="EVN" classCode="OBS"> < templateId root="2.16.840.1.261479.10.20.22.4.2" /> <id nullFlavor="NA " /> <code codeSystem="local" code="787-2" displayName="Automated erythrocyte mean corpuscular volume" /> <statusCode code="completed" / > <effectiveTime value="285755556483" /> <value unit="[foz_us] " xsi:type="PQ" value="84" /> <referenceRange> < observationRange> <text>80-99</text> </observationRange > </referenceRange> </observation> </component> < component> <observation moodCode="EVN" classCode="OBS"> < templateId root="2.16.840.1.698577.10.20.22.4.2" /> <id nullFlavor="NA " /> <code codeSystem="local" code="785-6" displayName="Automated erythrocyte mean corpuscular hemoglobin (mass per erythrocyte)" /> < statusCode code="completed" /> <effectiveTime value="526792648433" /> <value unit="pg" xsi:type="PQ" value="27" /> <referenceRange> <observationRange> <text>25-34</text> </ observationRange> </referenceRange> </observation> </ component> <component> <observation moodCode="EVN" classCode="OBS"> <templateId root="216.840.1.127770.10.20.22.4.2" /> <id nullFlavor="NA" /> <code codeSystem="local" code="786-4" displayName= "Automated erythrocyte mean corpuscular hemoglobin concentration measurement ( mass/volume)" /> <statusCode code="completed" /> < effectiveTime value="595756761996" /> <value unit="g/dL" xsi:type="PQ" value="32" /> <referenceRange> <observationRange> <text>32-36</text> </observationRange> </referenceRange > </observation> </component> <component> <observation moodCode="EVN" classCode="OBS"> <templateId root= "216.840.1.588660.10...4.2" /> <id nullFlavor="NA" /> < code codeSystem="local" code="788-0" displayName="Automated erythrocyte distribution width ratio" /> <statusCode code="completed" /> < effectiveTime value="" /> <value unit="%" xsi:type="PQ " value="17.6" /> <interpretationCode codeSystem="local" code="" /> <referenceRange> <observationRange> <text>10.0- 14.5</text> </observationRange> </referenceRange> </ observation> </component> <component> <observation moodCode= "EVN" classCode="OBS"> <templateId root="216.840.1.026713.10..22.4.2 " /> <id nullFlavor="NA" /> <code codeSystem="local" code="777 -3" displayName="Automated blood platelet count (count/volume)" /> < statusCode code="completed" /> <effectiveTime value="789535967821" /> <value unit="10*3/uL" xsi:type="PQ" value="426" /> < interpretationCode codeSystem="local" code="" /> <referenceRange> <observationRange> <text>130-400</text> </ observationRange> </referenceRange> </observation> </ component> <component> <observation moodCode="EVN" classCode="OBS"> <templateId root="216.840.1.631346.10.20.22.4.2" /> <id nullFlavor="NA" /> <code codeSystem="local" code="82304-7" displayName= "Automated blood platelet mean volume measurement" /> <statusCode code= "completed" /> <effectiveTime value="501242413337" /> <value unit="[foz_us]" xsi:type="PQ" value="9.9" /> <referenceRange> <observationRange> <text>7.4-10.4</text> </ observationRange> </referenceRange> </observation> </ component> <component> <observation moodCode="EVN" classCode="OBS"> <templateId root="216.840.1.309540.10.20.22.4.2" /> <id nullFlavor="NA" /> <code codeSystem="local" code="770-8" displayName= "Automated blood neutrophils/100 leukocytes" /> <statusCode code= "completed" /> <effectiveTime value="210231715499" /> <value unit="%" xsi:type="PQ" value="48" /> <referenceRange> < observationRange> <text>42-75</text> </observationRange > </referenceRange> </observation> </component> < component> <observation moodCode="EVN" classCode="OBS"> < templateId root="216.840.1.251899...22.4.2" /> <id nullFlavor="NA " /> <code codeSystem="local" code="736-9" displayName="Automated blood lymphocytes/100 leukocytes" /> <statusCode code="completed" /> <effectiveTime value="794323494359" /> <value unit="%" xsi: type="PQ" value="44" /> <referenceRange> <observationRange> <text>12-44</text> </observationRange> </ referenceRange> </observation> </component> <component> <observation moodCode="EVN" classCode="OBS"> <templateId root= "2.16.840.1.261186....4.2" /> <id nullFlavor="NA" /> < code codeSystem="local" code="26295-8" displayName="Blood monocytes/100 leukocytes" /> <statusCode code="completed" /> <effectiveTime value="726171865291" /> <value unit="%" xsi:type="PQ" value="5" /> <referenceRange> <observationRange> <text>0-12 </text> </observationRange> </referenceRange> </ observation> </component> <component> <observation moodCode= "EVN" classCode="OBS"> <templateId root="2.16.840.1.020721.10..22.4.2 " /> <id nullFlavor="NA" /> <code codeSystem="local" code="713 -8" displayName="Automated blood eosinophils/100 leukocytes" /> < statusCode code="completed" /> <effectiveTime value="" /> <value unit="%" xsi:type="PQ" value="2" /> <referenceRange > <observationRange> <text>0-10</text> </ observationRange> </referenceRange> </observation> </ component> <component> <observation moodCode="EVN" classCode="OBS"> <templateId root="2.16.840.1.613038.10.20.22.4.2" /> <id nullFlavor="NA" /> <code codeSystem="local" code="706-2" displayName= "Automated blood basophils/100 leukocytes" /> <statusCode code= "completed" /> <effectiveTime value="336003495953" /> <value unit="%" xsi:type="PQ" value="0" /> <referenceRange> < observationRange> <text>0-10</text> </observationRange> </referenceRange> </observation> </component> < component> <observation moodCode="EVN" classCode="OBS"> < templateId root="216.840.1.466011.10.22.4.2" /> <id nullFlavor="NA " /> <code codeSystem="local" code="751-8" displayName="Blood neutrophils automated count (number/volume)" /> <statusCode code= "completed" /> <effectiveTime value="607697062570" /> <value unit="10*3" xsi:type="PQ" value="4.3" /> <referenceRange> < observationRange> <text>1.8-7.8</text> </ observationRange> </referenceRange> </observation> </ component> <component> <observation moodCode="EVN" classCode="OBS"> <templateId root="2.16.840.1.834270.10..22.4.2" /> <id nullFlavor="NA" /> <code codeSystem="local" code="731-0" displayName= "Blood lymphocytes automated count (number/volume)" /> <statusCode code ="completed" /> <effectiveTime value="600845197158" /> <value unit="10*3" xsi:type="PQ" value="4.0" /> <referenceRange> < observationRange> <text>1.0-4.0</text> </ observationRange> </referenceRange> </observation> </ component> <component> <observation moodCode="EVN" classCode="OBS"> <templateId root="216.840.1.981492.22.4.2" /> <id nullFlavor="NA" /> <code codeSystem="local" code="742-7" displayName= "Blood monocytes automated count (number/volume)" /> <statusCode code= "completed" /> <effectiveTime value="672421992517" /> <value unit="10*3" xsi:type="PQ" value="0.5" /> <referenceRange> < observationRange> <text>0.0-1.0</text> </ observationRange> </referenceRange> </observation> </ component> <component> <observation moodCode="EVN" classCode="OBS"> <templateId root="216.840.1.137165.01.28.22.4.2" /> <id nullFlavor="NA" /> <code codeSystem="local" code="711-2" displayName= "Automated eosinophil count" /> <statusCode code="completed" /> <effectiveTime value="154933965709" /> <value unit="10*3/uL" xsi: type="PQ" value="0.2" /> <referenceRange> <observationRange > <text>0.0-0.3</text> </observationRange> </ referenceRange> </observation> </component> <component> <observation moodCode="EVN" classCode="OBS"> <templateId root= "216.840.1.544290.01.28.22.4.2" /> <id nullFlavor="NA" /> < code codeSystem="local" code="704-7" displayName="Automated blood basophil count (count/volume)" /> <statusCode code="completed" /> < effectiveTime value="765907936769" /> <value unit="10*3/uL" xsi:type= "PQ" value="0.0" /> <referenceRange> <observationRange> <text>0.0-0.1</text> </observationRange> </ referenceRange> </observation> </component> </organizer> </entry > <entry> <organizer moodCode="EVN" classCode="BATTERY"> <templateId root="16.840.1.170812.01.28.22.4.1" /> <id nullFlavor="NA" /> <code codeSystem="local" code="41052-9" displayName="Complete urinalysis with reflex to culture" /> <statusCode code="completed" /> <component> < observation moodCode="EVN" classCode="OBS"> <templateId root= "16.840.1.658437.01.28.22.4.2" /> <id nullFlavor="NA" /> < code codeSystem="local" code="5778-6" displayName="Urine color determination" / > <statusCode code="completed" /> <effectiveTime value= "729236520559" /> <value unit="" xsi:type="PQ" value="YELLOW" /> <referenceRange> <observationRange> <text>NRG</text > </observationRange> </referenceRange> </observation > </component> <component> <observation moodCode="EVN" classCode="OBS"> <templateId root="216.840.1.888429.01.28.22.4.2" /> <id nullFlavor="NA" /> <code codeSystem="local" code="01726-9 " displayName="Urine clarity determination" /> <statusCode code= "completed" /> <effectiveTime value="381511070671" /> <value unit="" xsi:type="PQ" value="CLEAR" /> <referenceRange> < observationRange> <text>NRG</text> </observationRange> </referenceRange> </observation> </component> < component> <observation moodCode="EVN" classCode="OBS"> < templateId root="2.16.840.1.809634.10.20.22.4.2" /> <id nullFlavor="NA " /> <code codeSystem="local" code="5803-2" displayName="Urine pH measurement by test strip" /> <statusCode code="completed" /> <effectiveTime value="038143555284" /> <value unit="" xsi:type="PQ" value="7" /> <referenceRange> <observationRange> <text>5-9</text> </observationRange> </referenceRange> </observation> </component> <component> <observation moodCode="EVN" classCode="OBS"> <templateId root= "2.16.840.1.036619.10.20.22.4.2" /> <id nullFlavor="NA" /> < code codeSystem="local" code="5811-5" displayName="Specific gravity of urine by test strip" /> <statusCode code="completed" /> <effectiveTime value="922007801418" /> <value unit="" xsi:type="PQ" value="1.010" /> <interpretationCode codeSystem="local" code="" /> < referenceRange> <observationRange> <text>1.016-1.022</ text> </observationRange> </referenceRange> </ observation> </component> <component> <observation moodCode= "EVN" classCode="OBS"> <templateId root="2.16.840.1.232891.10..22.4.2 " /> <id nullFlavor="NA" /> <code codeSystem="local" code= "69230-6" displayName="Urine protein assay by test strip, semi-quantitative" /> <statusCode code="completed" /> <effectiveTime value= "" /> <value unit="" xsi:type="PQ" value="1+" /> < interpretationCode codeSystem="local" code="*" /> <referenceRange> <observationRange> <text>NEGATIVE</text> </ observationRange> </referenceRange> </observation> </ component> <component> <observation moodCode="EVN" classCode="OBS"> <templateId root="216.840.1.887406.01.28.22.4.2" /> <id nullFlavor="NA" /> <code codeSystem="local" code="25222-6" displayName= "Urine glucose detection by automated test strip" /> <statusCode code= "completed" /> <effectiveTime value="" /> <value unit="" xsi:type="PQ" value="NEGATIVE" /> <referenceRange> < observationRange> <text>NEGATIVE</text> </ observationRange> </referenceRange> </observation> </ component> <component> <observation moodCode="EVN" classCode="OBS"> <templateId root="216.840.1.782115.10.20.22.4.2" /> <id nullFlavor="NA" /> <code codeSystem="local" code="05875-8" displayName= "Erythrocytes detection in urine sediment by light microscopy" /> < statusCode code="completed" /> <effectiveTime value="" /> <value unit="" xsi:type="PQ" value="NEGATIVE" /> < referenceRange> <observationRange> <text>NEGATIVE</text > </observationRange> </referenceRange> </observation > </component> <component> <observation moodCode="EVN" classCode="OBS"> <templateId root="216.840.1.623950.10.20.22.4.2" /> <id nullFlavor="NA" /> <code codeSystem="local" code="35411-6 " displayName="Urine ketones detection by automated test strip" /> < statusCode code="completed" /> <effectiveTime value="844976827084" /> <value unit="" xsi:type="PQ" value="1+" /> < interpretationCode codeSystem="local" code="*" /> <referenceRange> <observationRange> <text>NEGATIVE</text> </ observationRange> </referenceRange> </observation> </ component> <component> <observation moodCode="EVN" classCode="OBS"> <templateId root="05.27.840.1.155838.10..4.2" /> <id nullFlavor="NA" /> <code codeSystem="local" code="5802-4" displayName= "Urine nitrite detection by test strip" /> <statusCode code="completed " /> <effectiveTime value="306868252100" /> <value unit="" xsi :type="PQ" value="NEGATIVE" /> <referenceRange> < observationRange> <text>NEGATIVE</text> </ observationRange> </referenceRange> </observation> </ component> <component> <observation moodCode="EVN" classCode="OBS"> <templateId root="05.27.840.1.624617.10.20.22.4.2" /> <id nullFlavor="NA" /> <code codeSystem="local" code="5770-3" displayName= "Urine total bilirubin detection by test strip" /> <statusCode code= "completed" /> <effectiveTime value="781766483011" /> <value unit="" xsi:type="PQ" value="NEGATIVE" /> <referenceRange> < observationRange> <text>NEGATIVE</text> </ observationRange> </referenceRange> </observation> </ component> <component> <observation moodCode="EVN" classCode="OBS"> <templateId root="2.16.840.1.114346.10.20.22.4.2" /> <id nullFlavor="NA" /> <code codeSystem="local" code="44001-0" displayName= "Urine urobilinogen measurement by automated test strip (mass/volume)" /> <statusCode code="completed" /> <effectiveTime value="603121446559 " /> <value unit="mg/dL" xsi:type="PQ" value="1" /> < referenceRange> <observationRange> <text>NORMAL</text> </observationRange> </referenceRange> </observation> </component> <component> <observation moodCode="EVN" classCode ="OBS"> <templateId root="2.16.840.1.994698.10.20.22.4.2" /> < id nullFlavor="NA" /> <code codeSystem="local" code="5799-2" displayName="Urine leukocyte esterase detection by dipstick" /> < statusCode code="completed" /> <effectiveTime value="765354345005" /> <value unit="" xsi:type="PQ" value="1+" /> < interpretationCode codeSystem="local" code="*" /> <referenceRange> <observationRange> <text>NEGATIVE</text> </ observationRange> </referenceRange> </observation> </ component> <component> <observation moodCode="EVN" classCode="OBS"> <templateId root="216.840.1.892242.10..22.4.2" /> <id nullFlavor="NA" /> <code codeSystem="local" code="28667-9" displayName= "Automated urine sediment erythrocyte count by microscopy (number/high power field)" /> <statusCode code="completed" /> <effectiveTime value="281034046961" /> <value unit="" xsi:type="PQ" value="NONE" /> <referenceRange> <observationRange> <text>NRG</ text> </observationRange> </referenceRange> </ observation> </component> <component> <observation moodCode= "EVN" classCode="OBS"> <templateId root="216.840.1.919932.10...4.2 " /> <id nullFlavor="NA" /> <code codeSystem="local" code= "5821-4" displayName="Automated urine sediment leukocyte count by microscopy ( number/high power field)" /> <statusCode code="completed" /> < effectiveTime value="207272543155" /> <value unit="[HPF]" xsi:type="PQ " value="" /> <referenceRange> <observationRange> <text>NRG</text> </observationRange> </referenceRange> </observation> </component> <component> <observation moodCode="EVN" classCode="OBS"> <templateId root= "16.840.1.049922.10..22.4.2" /> <id nullFlavor="NA" /> < code codeSystem="local" code="76857-0" displayName="Bacteria detection in urine sediment by light microscopy" /> <statusCode code="completed" /> <effectiveTime value="721761343149" /> <value unit="" xsi:type="PQ " value="NONE" /> <referenceRange> <observationRange> <text>NRG</text> </observationRange> </ referenceRange> </observation> </component> <component> <observation moodCode="EVN" classCode="OBS"> <templateId root= "840.1.041367.10.20.22.4.2" /> <id nullFlavor="NA" /> < code codeSystem="local" code="39148-7" displayName="Squamous epithelial cells detection in urine sediment by light microscopy" /> <statusCode code= "completed" /> <effectiveTime value="149469240899" /> <value unit="" xsi:type="PQ" value="0-2" /> <referenceRange> < observationRange> <text>NRG</text> </observationRange> </referenceRange> </observation> </component> < component> <observation moodCode="EVN" classCode="OBS"> < templateId root="840.1.351532.10.2022.4.2" /> <id nullFlavor="NA " /> <code codeSystem="local" code="75198-2" displayName="Crystals detection in urine sediment by light microscopy" /> <statusCode code= "completed" /> <effectiveTime value="247415535992" /> <value unit="" xsi:type="PQ" value="NONE" /> <referenceRange> < observationRange> <text>NRG</text> </observationRange> </referenceRange> </observation> </component> < component> <observation moodCode="EVN" classCode="OBS"> < templateId root="840.1.696767.10.20.22.4.2" /> <id nullFlavor="NA " /> <code codeSystem="local" code="80391-4" displayName="Casts detection in urine sediment by light microscopy" /> <statusCode code= "completed" /> <effectiveTime value="711251620826" /> <value unit="" xsi:type="PQ" value="NONE" /> <referenceRange> < observationRange> <text>NRG</text> </observationRange> </referenceRange> </observation> </component> < component> <observation moodCode="EVN" classCode="OBS"> < templateId root="216.840.1.482944.10..4.2" /> <id nullFlavor="NA " /> <code codeSystem="local" code="8247-9" displayName="Mucus detection in urine sediment by light microscopy" /> <statusCode code= "completed" /> <effectiveTime value="654845210899" /> <value unit="" xsi:type="PQ" value="NEGATIVE" /> <referenceRange> < observationRange> <text>NRG</text> </observationRange> </referenceRange> </observation> </component> < component> <observation moodCode="EVN" classCode="OBS"> < templateId root="16.840.1.636241.10...4.2" /> <id nullFlavor="NA " /> <code codeSystem="local" code="65321-0" displayName="Complete urinalysis with reflex to culture" /> <statusCode code="completed" /> <effectiveTime value="015987841423" /> <value unit="" xsi:type ="PQ" value="NO" /> <referenceRange> <observationRange> <text>NRG</text> </observationRange> </ referenceRange> </observation> </component> </organizer> </entry > <entry> <organizer moodCode="EVN" classCode="BATTERY"> <templateId root="216.840.1.308248.10..22.4.1" /> <id nullFlavor="NA" /> <code codeSystem="local" code="56734-5" displayName="Comprehensive metabolic panel" / > <statusCode code="completed" /> <component> <observation moodCode="EVN" classCode="OBS"> <templateId root= "2.16.840.1.619831.10..22.4.2" /> <id nullFlavor="NA" /> < code codeSystem="local" code="2951-2" displayName="Serum or plasma sodium measurement (moles/volume)" /> <statusCode code="completed" /> <effectiveTime value="047173994665" /> <value unit="mmol/L" xsi:type= "PQ" value="137" /> <referenceRange> <observationRange> <text>135-145</text> </observationRange> </ referenceRange> </observation> </component> <component> <observation moodCode="EVN" classCode="OBS"> <templateId root= "16.840.1.469642....4.2" /> <id nullFlavor="NA" /> < code codeSystem="local" code="2823-3" displayName="Serum or plasma potassium measurement (moles/volume)" /> <statusCode code="completed" /> <effectiveTime value="833242811122" /> <value unit="mmol/L" xsi:type= "PQ" value="3.9" /> <referenceRange> <observationRange> <text>3.6-5.0</text> </observationRange> </ referenceRange> </observation> </component> <component> <observation moodCode="EVN" classCode="OBS"> <templateId root= "216.840.1.972480.10..22.4.2" /> <id nullFlavor="NA" /> < code codeSystem="local" code="" displayName="Serum or plasma chloride measurement (moles/volume)" /> <statusCode code="completed" /> <effectiveTime value="521365624936" /> <value unit="mmol/L" xsi:type= "PQ" value="105" /> <referenceRange> <observationRange> <text>98-107</text> </observationRange> </ referenceRange> </observation> </component> <component> <observation moodCode="EVN" classCode="OBS"> <templateId root= "2.16.840.1.051170.10.20.22.4.2" /> <id nullFlavor="NA" /> < code codeSystem="local" code="2027-12" displayName="Carbon dioxide" /> < statusCode code="completed" /> <effectiveTime value="096331894756" /> <value unit="mmol/L" xsi:type="PQ" value="22" /> < referenceRange> <observationRange> <text>21-32</text> </observationRange> </referenceRange> </observation> </component> <component> <observation moodCode="EVN" classCode= "OBS"> <templateId root="2.16.840.1.592910.10.20.22.4.2" /> < id nullFlavor="NA" /> <code codeSystem="local" code="82131-1" displayName="Serum or plasma anion gap determination (moles/volume)" /> <statusCode code="completed" /> <effectiveTime value="932121215237" / > <value unit="mmol/L" xsi:type="PQ" value="10" /> < referenceRange> <observationRange> <text>5-14</text> </observationRange> </referenceRange> </observation> </component> <component> <observation moodCode="EVN" classCode= "OBS"> <templateId root="2.16.840.1.598595.10.20.22.4.2" /> < id nullFlavor="NA" /> <code codeSystem="local" code="3094-0" displayName="Serum or plasma urea nitrogen measurement (mass/volume)" /> <statusCode code="completed" /> <effectiveTime value="389708566529" /> <value unit="mg/dL" xsi:type="PQ" value="9" /> < referenceRange> <observationRange> <text>7-18</text> </observationRange> </referenceRange> </observation> </component> <component> <observation moodCode="EVN" classCode= "OBS"> <templateId root="2.16.840.1.128343.10..22.4.2" /> < id nullFlavor="NA" /> <code codeSystem="local" code="2160-0" displayName="Serum or plasma creatinine measurement (mass/volume)" /> < statusCode code="completed" /> <effectiveTime value="186864269825" /> <value unit="mg/dL" xsi:type="PQ" value="0.82" /> < referenceRange> <observationRange> <text>0.60-1.30</text > </observationRange> </referenceRange> </observation > </component> <component> <observation moodCode="EVN" classCode="OBS"> <templateId root="2.16.840.1.754162.10.20.22.4.2" /> <id nullFlavor="NA" /> <code codeSystem="local" code="3097-3" displayName="Serum or plasma urea nitrogen/creatinine mass ratio" /> < statusCode code="completed" /> <effectiveTime value="038942737171" /> <value unit="" xsi:type="PQ" value="11" /> <referenceRange> <observationRange> <text>NRG</text> </ observationRange> </referenceRange> </observation> </ component> <component> <observation moodCode="EVN" classCode="OBS"> <templateId root="2.16.840.1.836105.10.20.22.4.2" /> <id nullFlavor="NA" /> <code codeSystem="local" code="86351-5" displayName= "Serum or plasma creatinine measurement with calculation of estimated glomerular filtration rate" /> <statusCode code="completed" /> <effectiveTime value="547695129385" /> <value unit="" xsi:type="PQ" value=">" /> <referenceRange> <observationRange> <text>NRG</text> </observationRange> </referenceRange > </observation> </component> <component> <observation moodCode="EVN" classCode="OBS"> <templateId root= "216.840.1.053556.10..22.4.2" /> <id nullFlavor="NA" /> < code codeSystem="local" code="2345-7" displayName="Serum or plasma glucose measurement (mass/volume)" /> <statusCode code="completed" /> <effectiveTime value="724139571874" /> <value unit="mg/dL" xsi:type="PQ " value="90" /> <referenceRange> <observationRange> <text>70-105</text> </observationRange> </ referenceRange> </observation> </component> <component> <observation moodCode="EVN" classCode="OBS"> <templateId root= "216.840.1.545453.10.20.22.4.2" /> <id nullFlavor="NA" /> < code codeSystem="local" code="24977-2" displayName="Serum or plasma calcium measurement (mass/volume)" /> <statusCode code="completed" /> <effectiveTime value="670335422482" /> <value unit="mg/dL" xsi:type="PQ " value="9.7" /> <referenceRange> <observationRange> <text>8.5-10.1</text> </observationRange> </ referenceRange> </observation> </component> <component> <observation moodCode="EVN" classCode="OBS"> <templateId root= "2.16.840.1.520909.10.20.22.4.2" /> <id nullFlavor="NA" /> < code codeSystem="local" code="1974-05" displayName="Serum or plasma total bilirubin measurement (mass/volume)" /> <statusCode code="completed" / > <effectiveTime value="576175808021" /> <value unit="mg/dL" xsi:type="PQ" value="0.3" /> <referenceRange> < observationRange> <text>0.1-1.0</text> </ observationRange> </referenceRange> </observation> </ component> <component> <observation moodCode="EVN" classCode="OBS"> <templateId root="2.16.840.1.588926.10.20.22.4.2" /> <id nullFlavor="NA" /> <code codeSystem="local" code="6768-6" displayName= "Serum or plasma alkaline phosphatase measurement (enzymatic activity/volume)" / > <statusCode code="completed" /> <effectiveTime value= "203654839206" /> <value unit="U/L" xsi:type="PQ" value="47" /> <referenceRange> <observationRange> <text>40-136</ text> </observationRange> </referenceRange> </ observation> </component> <component> <observation moodCode= "EVN" classCode="OBS"> <templateId root="2.16.840.1.569357.10.20.22.4.2 " /> <id nullFlavor="NA" /> <code codeSystem="local" code= "1919-11" displayName="Serum or plasma aspartate aminotransferase measurement ( enzymatic activity/volume)" /> <statusCode code="completed" /> <effectiveTime value="" /> <value unit="U/L" xsi:type="PQ " value="13" /> <referenceRange> <observationRange> <text>5-34</text> </observationRange> </referenceRange > </observation> </component> <component> <observation moodCode="EVN" classCode="OBS"> <templateId root= "2.16.840.1.951823.10...4.2" /> <id nullFlavor="NA" /> < code codeSystem="local" code="17405-17" displayName="Serum or plasma alanine aminotransferase measurement (enzymatic activity/volume)" /> < statusCode code="completed" /> <effectiveTime value="" /> <value unit="U/L" xsi:type="PQ" value="12" /> <referenceRange > <observationRange> <text>0-55</text> </ observationRange> </referenceRange> </observation> </ component> <component> <observation moodCode="EVN" classCode="OBS"> <templateId root="2.16.840.1.764928.10..22.4.2" /> <id nullFlavor="NA" /> <code codeSystem="local" code="2885-2" displayName= "Serum or plasma protein measurement (mass/volume)" /> <statusCode code ="completed" /> <effectiveTime value="324610353517" /> <value unit="g/dL" xsi:type="PQ" value="7.6" /> <referenceRange> < observationRange> <text>6.4-8.2</text> </ observationRange> </referenceRange> </observation> </ component> <component> <observation moodCode="EVN" classCode="OBS"> <templateId root="216.840.1.000012.10..22.4.2" /> <id nullFlavor="NA" /> <code codeSystem="local" code="1750-10" displayName= "Serum or plasma albumin measurement (mass/volume)" /> <statusCode code ="completed" /> <effectiveTime value="063166866262" /> <value unit="g/dL" xsi:type="PQ" value="4.3" /> <referenceRange> < observationRange> <text>3.2-4.5</text> </ observationRange> </referenceRange> </observation> </ component> </organizer> </entry> <entry> <organizer moodCode="EVN" classCode="BATTERY"> <templateId root="16.840.1.244499.10..22.4.1" /> <id nullFlavor="NA" /> <code codeSystem="local" code="1987-08" displayName="Serum or plasma C reactive protein measurement (mass/volume)" /> <statusCode code="completed" /> <component> <observation moodCode="EVN" classCode="OBS"> <templateId root= "16.840.1.072697.10..22.4.2" /> <id nullFlavor="NA" /> < code codeSystem="local" code="1987-08" displayName="Serum or plasma C reactive protein measurement (mass/volume)" /> <statusCode code="completed" /> <effectiveTime value="247694084468" /> <value unit="mg/dL" xsi :type="PQ" value="1.43" /> <interpretationCode codeSystem="local" code= "" /> <referenceRange> <observationRange> < text>0.00-0.50</text> </observationRange> </referenceRange> </observation> </component> </organizer> </entry> <entry> < organizer moodCode="EVN" classCode="BATTERY"> <templateId root= "2.16.840.1.941674.10.20.22.4.1" /> <id nullFlavor="NA" /> <code codeSystem="local" code="96927-7" displayName="Complete blood count (CBC) with automated white blood cell (WBC) differential" /> <statusCode code= "completed" /> <component> <observation moodCode="EVN" classCode= "OBS"> <templateId root="2.16.840.1.043111.10.20.22.4.2" /> < id nullFlavor="NA" /> <code codeSystem="local" code="6690-2" displayName="Blood leukocytes automated count (number/volume)" /> < statusCode code="completed" /> <effectiveTime value="362246513611" /> <value unit="10*3/uL" xsi:type="PQ" value="9.9" /> < referenceRange> <observationRange> <text>4.3-11.0</text > </observationRange> </referenceRange> </observation > </component> <component> <observation moodCode="EVN" classCode="OBS"> <templateId root="2.16.840.1.866711.10.20.22.4.2" /> <id nullFlavor="NA" /> <code codeSystem="local" code="789-8" displayName="Blood erythrocytes automated count (number/volume)" /> < statusCode code="completed" /> <effectiveTime value="982369374142" /> <value unit="10*6/uL" xsi:type="PQ" value="4.45" /> < referenceRange> <observationRange> <text>4.35-5.85</text > </observationRange> </referenceRange> </observation > </component> <component> <observation moodCode="EVN" classCode="OBS"> <templateId root="216.840.1.299458.10.20.22.4.2" /> <id nullFlavor="NA" /> <code codeSystem="local" code="97848-1 " displayName="Venous blood hemoglobin measurement (mass/volume)" /> < statusCode code="completed" /> <effectiveTime value="858905649408" /> <value unit="g/dL" xsi:type="PQ" value="12.0" /> < referenceRange> <observationRange> <text>11.5-16.0</text > </observationRange> </referenceRange> </observation > </component> <component> <observation moodCode="EVN" classCode="OBS"> <templateId root="216.840.1.863757.10.20.22.4.2" /> <id nullFlavor="NA" /> <code codeSystem="local" code="08742-1 " displayName="Blood hematocrit (volume fraction)" /> <statusCode code= "completed" /> <effectiveTime value="154252940926" /> <value unit="%" xsi:type="PQ" value="37" /> <referenceRange> < observationRange> <text>35-52</text> </observationRange > </referenceRange> </observation> </component> < component> <observation moodCode="EVN" classCode="OBS"> < templateId root="840.1.057766.10.20.22.4.2" /> <id nullFlavor="NA " /> <code codeSystem="local" code="787-2" displayName="Automated erythrocyte mean corpuscular volume" /> <statusCode code="completed" / > <effectiveTime value="191586066079" /> <value unit="[foz_us] " xsi:type="PQ" value="84" /> <referenceRange> < observationRange> <text>80-99</text> </observationRange > </referenceRange> </observation> </component> < component> <observation moodCode="EVN" classCode="OBS"> < templateId root="16.840.1.568585.10.20.22.4.2" /> <id nullFlavor="NA " /> <code codeSystem="local" code="785-6" displayName="Automated erythrocyte mean corpuscular hemoglobin (mass per erythrocyte)" /> < statusCode code="completed" /> <effectiveTime value="121658197175" /> <value unit="pg" xsi:type="PQ" value="27" /> <referenceRange> <observationRange> <text>25-34</text> </ observationRange> </referenceRange> </observation> </ component> <component> <observation moodCode="EVN" classCode="OBS"> <templateId root="16.840.1.812919.10.20.22.4.2" /> <id nullFlavor="NA" /> <code codeSystem="local" code="786-4" displayName= "Automated erythrocyte mean corpuscular hemoglobin concentration measurement ( mass/volume)" /> <statusCode code="completed" /> < effectiveTime value="104174136692" /> <value unit="g/dL" xsi:type="PQ" value="32" /> <referenceRange> <observationRange> <text>32-36</text> </observationRange> </referenceRange > </observation> </component> <component> <observation moodCode="EVN" classCode="OBS"> <templateId root= "216.840.1.832732.10.20.22.4.2" /> <id nullFlavor="NA" /> < code codeSystem="local" code="788-0" displayName="Automated erythrocyte distribution width ratio" /> <statusCode code="completed" /> < effectiveTime value="898307892086" /> <value unit="%" xsi:type="PQ " value="16.7" /> <interpretationCode codeSystem="local" code="" /> <referenceRange> <observationRange> <text>10.0- 14.5</text> </observationRange> </referenceRange> </ observation> </component> <component> <observation moodCode= "EVN" classCode="OBS"> <templateId root="16.840.1.908947.10..22.4.2 " /> <id nullFlavor="NA" /> <code codeSystem="local" code="777 -3" displayName="Automated blood platelet count (count/volume)" /> < statusCode code="completed" /> <effectiveTime value="518868177800" /> <value unit="10*3/uL" xsi:type="PQ" value="458" /> < interpretationCode codeSystem="local" code="" /> <referenceRange> <observationRange> <text>130-400</text> </ observationRange> </referenceRange> </observation> </ component> <component> <observation moodCode="EVN" classCode="OBS"> <templateId root="216.840.1.418869.10.20.22.4.2" /> <id nullFlavor="NA" /> <code codeSystem="local" code="72394-7" displayName= "Automated blood platelet mean volume measurement" /> <statusCode code= "completed" /> <effectiveTime value="428309715396" /> <value unit="[[facility]]" xsi:type="PQ" value="9.6" /> <referenceRange> <observationRange> <text>7.4-10.4</text> </ observationRange> </referenceRange> </observation> </ component> <component> <observation moodCode="EVN" classCode="OBS"> <templateId root="2.16.840.1.714990.10.20.22.4.2" /> <id nullFlavor="NA" /> <code codeSystem="local" code="770-8" displayName= "Automated blood neutrophils/100 leukocytes" /> <statusCode code= "completed" /> <effectiveTime value="401765166591" /> <value unit="%" xsi:type="PQ" value="54" /> <referenceRange> < observationRange> <text>42-75</text> </observationRange > </referenceRange> </observation> </component> < component> <observation moodCode="EVN" classCode="OBS"> < templateId root="2.16.840.1.677695.10.20.22.4.2" /> <id nullFlavor="NA " /> <code codeSystem="local" code="736-9" displayName="Automated blood lymphocytes/100 leukocytes" /> <statusCode code="completed" /> <effectiveTime value="367843901140" /> <value unit="%" xsi: type="PQ" value="38" /> <referenceRange> <observationRange> <text>12-44</text> </observationRange> </ referenceRange> </observation> </component> <component> <observation moodCode="EVN" classCode="OBS"> <templateId root= "2.16.840.1.179366.10..22.4.2" /> <id nullFlavor="NA" /> < code codeSystem="local" code="06280-2" displayName="Blood monocytes/100 leukocytes" /> <statusCode code="completed" /> <effectiveTime value="973231115066" /> <value unit="%" xsi:type="PQ" value="5" /> <referenceRange> <observationRange> <text>0-12 </text> </observationRange> </referenceRange> </ observation> </component> <component> <observation moodCode= "EVN" classCode="OBS"> <templateId root="216.840.1.595839.10..22.4.2 " /> <id nullFlavor="NA" /> <code codeSystem="local" code="713 -8" displayName="Automated blood eosinophils/100 leukocytes" /> < statusCode code="completed" /> <effectiveTime value="439258062477" /> <value unit="%" xsi:type="PQ" value="2" /> <referenceRange > <observationRange> <text>0-10</text> </ observationRange> </referenceRange> </observation> </ component> <component> <observation moodCode="EVN" classCode="OBS"> <templateId root="216.840.1.554565.10.20.22.4.2" /> <id nullFlavor="NA" /> <code codeSystem="local" code="706-2" displayName= "Automated blood basophils/100 leukocytes" /> <statusCode code= "completed" /> <effectiveTime value="475649023747" /> <value unit="%" xsi:type="PQ" value="0" /> <referenceRange> < observationRange> <text>0-10</text> </observationRange> </referenceRange> </observation> </component> < component> <observation moodCode="EVN" classCode="OBS"> < templateId root="2.16.840.1.688649.10.20.22.4.2" /> <id nullFlavor="NA " /> <code codeSystem="local" code="751-8" displayName="Blood neutrophils automated count (number/volume)" /> <statusCode code= "completed" /> <effectiveTime value="811038675115" /> <value unit="10*3" xsi:type="PQ" value="5.3" /> <referenceRange> < observationRange> <text>1.8-7.8</text> </ observationRange> </referenceRange> </observation> </ component> <component> <observation moodCode="EVN" classCode="OBS"> <templateId root="216.840.1.291704.10..22.4.2" /> <id nullFlavor="NA" /> <code codeSystem="local" code="731-0" displayName= "Blood lymphocytes automated count (number/volume)" /> <statusCode code ="completed" /> <effectiveTime value="058971627866" /> <value unit="10*3" xsi:type="PQ" value="3.8" /> <referenceRange> < observationRange> <text>1.0-4.0</text> </ observationRange> </referenceRange> </observation> </ component> <component> <observation moodCode="EVN" classCode="OBS"> <templateId root="216.840.1.238735.10.20.22.4.2" /> <id nullFlavor="NA" /> <code codeSystem="local" code="742-7" displayName= "Blood monocytes automated count (number/volume)" /> <statusCode code= "completed" /> <effectiveTime value="728171704008" /> <value unit="10*3" xsi:type="PQ" value="0.5" /> <referenceRange> < observationRange> <text>0.0-1.0</text> </ observationRange> </referenceRange> </observation> </ component> <component> <observation moodCode="EVN" classCode="OBS"> <templateId root="2.16.840.1.165167.10..22.4.2" /> <id nullFlavor="NA" /> <code codeSystem="local" code="711-2" displayName= "Automated eosinophil count" /> <statusCode code="completed" /> <effectiveTime value="846342744620" /> <value unit="10*3/uL" xsi: type="PQ" value="0.2" /> <referenceRange> <observationRange > <text>0.0-0.3</text> </observationRange> </ referenceRange> </observation> </component> <component> <observation moodCode="EVN" classCode="OBS"> <templateId root= "2.16.840.1.102019.10..22.4.2" /> <id nullFlavor="NA" /> < code codeSystem="local" code="704-7" displayName="Automated blood basophil count (count/volume)" /> <statusCode code="completed" /> < effectiveTime value="980837672291" /> <value unit="10*3/uL" xsi:type= "PQ" value="0.0" /> <referenceRange> <observationRange> <text>0.0-0.1</text> </observationRange> </ referenceRange> </observation> </component> </organizer> </entry > <entry> <organizer moodCode="EVN" classCode="BATTERY"> <templateId root="2.16.840.1.394737.10..22.4.1" /> <id nullFlavor="NA" /> <code codeSystem="local" code="49583-5" displayName="PT panel in platelet poor plasma by coagulation assay" /> <statusCode code="completed" /> <component> <observation moodCode="EVN" classCode="OBS"> <templateId root= "2.16.840.1.393590.10...4.2" /> <id nullFlavor="NA" /> < code codeSystem="local" code="5902-2" displayName="Prothrombin time (PT) in platelet poor plasma by coagulation assay" /> <statusCode code= "completed" /> <effectiveTime value="493795585305" /> <value unit="s" xsi:type="PQ" value="13.8" /> <referenceRange> < observationRange> <text>12.2-14.7</text> </ observationRange> </referenceRange> </observation> </ component> <component> <observation moodCode="EVN" classCode="OBS"> <templateId root="2.16.840.1.806520.10..22.4.2" /> <id nullFlavor="NA" /> <code codeSystem="local" code="28355-2" displayName= "INR in platelet poor plasma or blood by coagulation assay" /> < statusCode code="completed" /> <effectiveTime value="472057098767" /> <value unit="" xsi:type="PQ" value="1.1" /> <referenceRange> <observationRange> <text>0.8-1.4</text> </ observationRange> </referenceRange> </observation> </ component> </organizer> </entry> <entry> <organizer moodCode="EVN" classCode="BATTERY"> <templateId root="2.16.840.1.852887.10..22.4.1" /> <id nullFlavor="NA" /> <code codeSystem="local" code="10755-9" displayName="Activated partial thromboplastin time (aPTT) in platelet poor plasma bycoagulation assay" /> <statusCode code="completed" /> < component> <observation moodCode="EVN" classCode="OBS"> < templateId root="2.16.840.1.934243.10...4.2" /> <id nullFlavor="NA " /> <code codeSystem="local" code="16594-8" displayName="Activated partial thromboplastin time (aPTT) in platelet poor plasma bycoagulation assay" /> <statusCode code="completed" /> <effectiveTime value= "774640451241" /> <value unit="s" xsi:type="PQ" value="36" /> <interpretationCode codeSystem="local" code="" /> <referenceRange> <observationRange> <text>24-35</text> </ observationRange> </referenceRange> </observation> </ component> </organizer> </entry> <entry> <organizer moodCode="EVN" classCode="BATTERY"> <templateId root="2.16.840.1.041145.10...4.1" /> <id nullFlavor="NA" /> <code codeSystem="local" code="83232-7" displayName="Fibrin D-dimer FEU measurement in platelet poor plasma (mass/volume )" /> <statusCode code="completed" /> <component> <observation moodCode="EVN" classCode="OBS"> <templateId root= "2.16.840.1.378090.10..22.4.2" /> <id nullFlavor="NA" /> < code codeSystem="local" code="94477-4" displayName="Fibrin D-dimer FEU measurement in platelet poor plasma (mass/volume)" /> <statusCode code= "completed" /> <effectiveTime value="291397947156" /> <value unit="ug/mL" xsi:type="PQ" value="0.33" /> <referenceRange> <observationRange> <text>0.00-0.49</text> </ observationRange> </referenceRange> </observation> </ component> </organizer> </entry> <entry> <organizer moodCode="EVN" classCode="BATTERY"> <templateId root="2.16.840.1.228080.10..22.4.1" /> <id nullFlavor="NA" /> <code codeSystem="local" code="15109-4" displayName="Comprehensive metabolic panel" /> <statusCode code="completed " /> <component> <observation moodCode="EVN" classCode="OBS"> <templateId root="2.16.840.1.458742.10..22.4.2" /> <id nullFlavor ="NA" /> <code codeSystem="local" code="2951-2" displayName="Serum or plasma sodium measurement (moles/volume)" /> <statusCode code= "completed" /> <effectiveTime value="308658382713" /> <value unit="mmol/L" xsi:type="PQ" value="139" /> <referenceRange> <observationRange> <text>135-145</text> </ observationRange> </referenceRange> </observation> </ component> <component> <observation moodCode="EVN" classCode="OBS"> <templateId root="216.840.1.938233.10..4.2" /> <id nullFlavor="NA" /> <code codeSystem="local" code="28206-11" displayName= "Serum or plasma potassium measurement (moles/volume)" /> <statusCode code="completed" /> <effectiveTime value="994295859555" /> < value unit="mmol/L" xsi:type="PQ" value="3.9" /> <referenceRange> <observationRange> <text>3.6-5.0</text> </ observationRange> </referenceRange> </observation> </ component> <component> <observation moodCode="EVN" classCode="OBS"> <templateId root="2.16.840.1.835350.10.20.22.4.2" /> <id nullFlavor="NA" /> <code codeSystem="local" code="" displayName= "Serum or plasma chloride measurement (moles/volume)" /> <statusCode code="completed" /> <effectiveTime value="671742374610" /> < value unit="mmol/L" xsi:type="PQ" value="107" /> <referenceRange> <observationRange> <text>98-107</text> </ observationRange> </referenceRange> </observation> </ component> <component> <observation moodCode="EVN" classCode="OBS"> <templateId root="2.16.840.1.629223.10.20.22.4.2" /> <id nullFlavor="NA" /> <code codeSystem="local" code="2027-12" displayName= "Carbon dioxide" /> <statusCode code="completed" /> < effectiveTime value="663263597730" /> <value unit="mmol/L" xsi:type="PQ " value="24" /> <referenceRange> <observationRange> <text>21-32</text> </observationRange> </ referenceRange> </observation> </component> <component> <observation moodCode="EVN" classCode="OBS"> <templateId root= "2.16.840.1.313111.10..22.4.2" /> <id nullFlavor="NA" /> < code codeSystem="local" code="44124-9" displayName="Serum or plasma anion gap determination (moles/volume)" /> <statusCode code="completed" /> <effectiveTime value="757103462336" /> <value unit="mmol/L" xsi: type="PQ" value="8" /> <referenceRange> <observationRange> <text>5-14</text> </observationRange> </ referenceRange> </observation> </component> <component> <observation moodCode="EVN" classCode="OBS"> <templateId root= "2.16.840.1.042877.10.22.4.2" /> <id nullFlavor="NA" /> < code codeSystem="local" code="3094-0" displayName="Serum or plasma urea nitrogen measurement (mass/volume)" /> <statusCode code="completed" /> <effectiveTime value="298674760854" /> <value unit="mg/dL" xsi:type="PQ" value="7" /> <referenceRange> < observationRange> <text>7-18</text> </observationRange> </referenceRange> </observation> </component> < component> <observation moodCode="EVN" classCode="OBS"> < templateId root="2.16.840.1.443129.10..22.4.2" /> <id nullFlavor="NA " /> <code codeSystem="local" code="2160-0" displayName="Serum or plasma creatinine measurement (mass/volume)" /> <statusCode code= "completed" /> <effectiveTime value="328659872559" /> <value unit="mg/dL" xsi:type="PQ" value="0.76" /> <referenceRange> <observationRange> <text>0.60-1.30</text> </ observationRange> </referenceRange> </observation> </ component> <component> <observation moodCode="EVN" classCode="OBS"> <templateId root="2.16.840.1.594680.10.22.4.2" /> <id nullFlavor="NA" /> <code codeSystem="local" code="3097-3" displayName= "Serum or plasma urea nitrogen/creatinine mass ratio" /> <statusCode code="completed" /> <effectiveTime value="439470258556" /> < value unit="" xsi:type="PQ" value="9" /> <referenceRange> < observationRange> <text>NRG</text> </observationRange> </referenceRange> </observation> </component> < component> <observation moodCode="EVN" classCode="OBS"> < templateId root="216.840.1.013961.10..4.2" /> <id nullFlavor="NA " /> <code codeSystem="local" code="11496-4" displayName="Serum or plasma creatinine measurement with calculation of estimated glomerular filtration rate" /> <statusCode code="completed" /> < effectiveTime value="044803284943" /> <value unit="" xsi:type="PQ" value=">" /> <referenceRange> <observationRange> <text>NRG</text> </observationRange> </referenceRange > </observation> </component> <component> <observation moodCode="EVN" classCode="OBS"> <templateId root= "2.16.840.1.389256.10.22.4.2" /> <id nullFlavor="NA" /> < code codeSystem="local" code="2345-7" displayName="Serum or plasma glucose measurement (mass/volume)" /> <statusCode code="completed" /> <effectiveTime value="225362356213" /> <value unit="mg/dL" xsi:type="PQ " value="91" /> <referenceRange> <observationRange> <text>70-105</text> </observationRange> </ referenceRange> </observation> </component> <component> <observation moodCode="EVN" classCode="OBS"> <templateId root= "2.16.840.1.594295.10..4.2" /> <id nullFlavor="NA" /> < code codeSystem="local" code="81371-0" displayName="Serum or plasma calcium measurement (mass/volume)" /> <statusCode code="completed" /> <effectiveTime value="496253795413" /> <value unit="mg/dL" xsi:type="PQ " value="9.8" /> <referenceRange> <observationRange> <text>8.5-10.1</text> </observationRange> </ referenceRange> </observation> </component> <component> <observation moodCode="EVN" classCode="OBS"> <templateId root= "2.16.840.1.484132.10..4.2" /> <id nullFlavor="NA" /> < code codeSystem="local" code="1974-05" displayName="Serum or plasma total bilirubin measurement (mass/volume)" /> <statusCode code="completed" / > <effectiveTime value="608417334474" /> <value unit="mg/dL" xsi:type="PQ" value="0.3" /> <referenceRange> < observationRange> <text>0.1-1.0</text> </ observationRange> </referenceRange> </observation> </ component> <component> <observation moodCode="EVN" classCode="OBS"> <templateId root="2.16.840.1.498180.10.20.22.4.2" /> <id nullFlavor="NA" /> <code codeSystem="local" code="6768-6" displayName= "Serum or plasma alkaline phosphatase measurement (enzymatic activity/volume)" / > <statusCode code="completed" /> <effectiveTime value= "984436247107" /> <value unit="U/L" xsi:type="PQ" value="39" /> <interpretationCode codeSystem="local" code="" /> <referenceRange > <observationRange> <text>40-136</text> </ observationRange> </referenceRange> </observation> </ component> <component> <observation moodCode="EVN" classCode="OBS"> <templateId root="216.840.1.856271.10..22.4.2" /> <id nullFlavor="NA" /> <code codeSystem="local" code="19208" displayName= "Serum or plasma aspartate aminotransferase measurement (enzymatic activity/ volume)" /> <statusCode code="completed" /> <effectiveTime value="138477002884" /> <value unit="U/L" xsi:type="PQ" value="11" /> <referenceRange> <observationRange> <text>5-34< /text> </observationRange> </referenceRange> </ observation> </component> <component> <observation moodCode= "EVN" classCode="OBS"> <templateId root="216.840.1.491119.10.20.22.4.2 " /> <id nullFlavor="NA" /> <code codeSystem="local" code= "1742" displayName="Serum or plasma alanine aminotransferase measurement ( enzymatic activity/volume)" /> <statusCode code="completed" /> <effectiveTime value="951748903948" /> <value unit="U/L" xsi:type="PQ " value="8" /> <referenceRange> <observationRange> <text>0-55</text> </observationRange> </referenceRange > </observation> </component> <component> <observation moodCode="EVN" classCode="OBS"> <templateId root= "2.16.840.1.189005.10.20.22.4.2" /> <id nullFlavor="NA" /> < code codeSystem="local" code="2885-2" displayName="Serum or plasma protein measurement (mass/volume)" /> <statusCode code="completed" /> <effectiveTime value="099481855784" /> <value unit="g/dL" xsi:type="PQ " value="7.6" /> <referenceRange> <observationRange> <text>6.4-8.2</text> </observationRange> </ referenceRange> </observation> </component> <component> <observation moodCode="EVN" classCode="OBS"> <templateId root= "2.16.840.1.673458.10.20.22.4.2" /> <id nullFlavor="NA" /> < code codeSystem="local" code="1751-7" displayName="Serum or plasma albumin measurement (mass/volume)" /> <statusCode code="completed" /> <effectiveTime value="529883032620" /> <value unit="g/dL" xsi:type="PQ " value="4.5" /> <referenceRange> <observationRange> <text>3.2-4.5</text> </observationRange> </ referenceRange> </observation> </component> </organizer> </entry > <entry> <organizer moodCode="EVN" classCode="BATTERY"> <templateId root="2.16.840.1.965055.10..22.4.1" /> <id nullFlavor="NA" /> <code codeSystem="local" code="" displayName="Magnesium" /> <statusCode code="completed" /> <component> <observation moodCode="EVN" classCode="OBS"> <templateId root="16.840.1.105507.10..4.2" /> <id nullFlavor="NA" /> <code codeSystem="local" code=" " displayName="Magnesium" /> <statusCode code="completed" /> < effectiveTime value="981587097612" /> <value unit="mg/dL" xsi:type="PQ " value="1.9" /> <referenceRange> <observationRange> <text>1.8-2.4</text> </observationRange> </ referenceRange> </observation> </component> </organizer> </entry > <entry> <organizer moodCode="EVN" classCode="BATTERY"> <templateId root="16.840.1.412740.10..4.1" /> <id nullFlavor="NA" /> <code codeSystem="local" code="2156-09" displayName="Serum or plasma creatine kinase measurement (enzymatic activity/volume)" /> <statusCode code="completed" / > <component> <observation moodCode="EVN" classCode="OBS"> <templateId root="16.840.1.635863.10..22.4.2" /> <id nullFlavor="NA " /> <code codeSystem="local" code="2156-09" displayName="Serum or plasma creatine kinase measurement (enzymatic activity/volume)" /> < statusCode code="completed" /> <effectiveTime value="079867644958" /> <value unit="U/L" xsi:type="PQ" value="154" /> <referenceRange > <observationRange> <text>29-168</text> </ observationRange> </referenceRange> </observation> </ component> </organizer> </entry> <entry> <organizer moodCode="EVN" classCode="BATTERY"> <templateId root="216.840.1.944523.10.20.22.4.1" /> <id nullFlavor="NA" /> <code codeSystem="local" code="12159-2" displayName="Serum or plasma creatine kinase MB measurement (enzymatic activity/ volume)" /> <statusCode code="completed" /> <component> < observation moodCode="EVN" classCode="OBS"> <templateId root= "2.16.840.1.191295.10.20.22.4.2" /> <id nullFlavor="NA" /> < code codeSystem="local" code="48982-7" displayName="Serum or plasma creatine kinase MB measurement (enzymatic activity/volume)" /> <statusCode code= "completed" /> <effectiveTime value="411900795498" /> <value unit="ng/mL" xsi:type="PQ" value="0.6" /> <referenceRange> < observationRange> <text><6.6</text> </ observationRange> </referenceRange> </observation> </ component> </organizer> </entry> <entry> <organizer moodCode="EVN" classCode="BATTERY"> <templateId root="216.840.1.857297.10.20.22.4.1" /> <id nullFlavor="NA" /> <code codeSystem="local" code="15314-0" displayName="Serum or plasma troponin i.cardiac measurement (mass/volume)" /> <statusCode code="completed" /> <component> <observation moodCode="EVN" classCode="OBS"> <templateId root= "2.16.840.1.922929.10.20.22.4.2" /> <id nullFlavor="NA" /> < code codeSystem="local" code="14211-6" displayName="Serum or plasma troponin i.cardiac measurement (mass/volume)" /> <statusCode code="completed" / > <effectiveTime value="571801423079" /> <value unit="ng/mL" xsi:type="PQ" value="<" /> <referenceRange> < observationRange> <text><0.30</text> </ observationRange> </referenceRange> </observation> </ component> </organizer> </entry> <entry> <organizer moodCode="EVN" classCode="BATTERY"> <templateId root="2.16.840.1.562571.10.20.22.4.1" /> <id nullFlavor="NA" /> <code codeSystem="local" code="26592-5" displayName="Serum or plasma lithium measurement (moles/volume)" /> < statusCode code="completed" /> <component> <observation moodCode= "EVN" classCode="OBS"> <templateId root="2.16.840.1.786809.10.20.22.4.2 " /> <id nullFlavor="NA" /> <code codeSystem="local" code= "07379-7" displayName="BNP level" /> <statusCode code="completed" /> <effectiveTime value="386127958746" /> <value unit="pg/mL" xsi: type="PQ" value="<" /> <referenceRange> <observationRange > <text><100.0</text> </observationRange> </ referenceRange> </observation> </component> </organizer> </entry > <entry> <organizer moodCode="EVN" classCode="BATTERY"> <templateId root="2.16.840.1.101474.10.20.22.4.1" /> <id nullFlavor="NA" /> <code codeSystem="local" code="2639-3" displayName="Myoglobin, serum" /> < statusCode code="completed" /> <component> <observation moodCode= "EVN" classCode="OBS"> <templateId root="2.16.840.1.128291.10.20.22.4.2 " /> <id nullFlavor="NA" /> <code codeSystem="local" code= "2639-3" displayName="Myoglobin, serum" /> <statusCode code="completed " /> <effectiveTime value="655447513185" /> <value unit="ng/mL " xsi:type="PQ" value="27.8" /> <referenceRange> < observationRange> <text>10.0-92.0</text> </ observationRange> </referenceRange> </observation> </ component> </organizer> </entry></section> Encounters ACCT No. Visit Date/Time Discharge Status Pt. Type Provider Facility Loc./Unit Complaint [id number] 03/29/2015 19:10:00 04/22/2015 16:58:00 DIS Inpatient Marianne FISCHER, [facility] W.9TS [id number] 11/24/2016 10:46:00 11/24/2016 23:59:00 DIS Outpatient NATALIE GUTIERREZ [id number] 07/16/2016 09:58:00 07/16/2016 23:59:00 DIS Outpatient NATALIE GUTIERREZ [id number] 08/24/2017 10:30:00 08/24/2017 11:35:00 DIS Outpatient SHRAVAN WALSH DO [facility] PREOP COLONOSCOPY [id number] 08/23/2017 06:54:00 08/23/2017 23:59:59 CLS Outpatient SKIP FISCHER FACCBONI FACP CCDS [facility] CATH PALPITATIONS [id number] 08/23/2017 06:52:00 08/23/2017 23:59:59 CLS Outpatient MANDARIDGE REYES Jori LAND DEGRADATION ANALYST [facility] CARD ASD,STROKE, PALPITATIONS,SOB [id number] 08/17/2017 17:21:00 08/17/2017 20:13:00 DIS Emergency MARYLOU MOLINA [facility] ER CHEST PAIN [id number] 07/31/2017 19:41:00 08/01/2017 00:22:00 DIS Emergency MARYLOU MOLINA [facility] ER ABD PAIN [id number] 06/14/2017 00:19:00 06/14/2017 02:10:00 DIS Emergency JUAN GONZALEZ DO [facility] ER LOWER BACK PAIN [id number] 04/17/2017 12:47:00 04/17/2017 14:22:00 DIS Emergency JOHN FISCHER, SANTINO Andrews [facility] ER HEADACHE FROM INJURY [id number] 03/24/2017 00:38:00 03/24/2017 01:59:00 DIS Emergency LAWRENCE WHITESIDE APRN [facility] ER VOMITING, CONTROL CAME OUT W/URINATING [id number] 01/27/2017 17:17:00 01/27/2017 20:18:00 DIS Emergency MROGAN FISCHER, MARIA ELENA Mao [facility] ER DENTAL PAIN/FACE SWELLING [id number] 01/25/2017 20:50:00 01/25/2017 21:44:00 DIS Emergency MAURIZIO THURMAN MD [facility] ER MOUTH ABCESS [id number] 11/22/2016 15:18:00 11/22/2016 17:00:00 DIS Emergency LAWRENCE WHITESIDE BOILER INSPECTOR [facility] ER RT LEG INJ [id number] 08/23/2016 13:34:00 08/23/2016 16:55:00 DIS Emergency LAWRENCE WHITESIDE BOILER INSPECTOR [facility] ER ABD PAIN [id number] 04/12/2016 11:27:00 04/12/2016 12:57:00 DIS Emergency JUAN GONZALEZ DO [facility] ER R LEG OINJ [id number] 12/31/2015 15:00:00 01/01/2016 11:55:00 DIS Inpatient HIEU HINOJOSA MD [facility] ICU SUICIDE ATTEMPT VOL DEPLETION DEPRESSION ANXIETY [id number] 11/20/2015 10:55:00 11/20/2015 12:05:00 DIS Emergency LAWRENCE WHITESIDE BOILER INSPECTOR [facility] ER COUGH/CONGESTION SOA [id number] 10/17/2015 08:04:00 10/17/2015 23:59:59 CLS Outpatient KADIE NEVAREZ MD [facility] RAD SPLENOMEGALY [id number] 09/21/2015 14:56:00 09/21/2015 15:46:00 DIS Emergency SANTINO LOPEZ MD [facility] ER BITE/LEFT EYE PASSED OUT [id number] 09/17/2015 13:48:00 09/17/2015 17:20:00 DIS Emergency JUAN GONZALEZ DO [facility] ER HEADACHE/LEFT SIDE NUMBNESS [id number] 05/06/2015 00:09:00 05/06/2015 23:59:59 CLS Preadmit KENYATTA COLEMAN MD [facility] ONC [id number] 02/04/2015 13:33:00 05/05/2015 00:01:00 DIS Outpatient KENYATTA COLEMAN MD [facility] ONC [id number] 03/29/2015 08:08:00 03/29/2015 09:25:00 DIS Emergency VALERIA GUILLERMO MD [facility] ER R KNEE PAIN [id number] 03/10/2015 14:25:00 03/10/2015 23:59:59 CLS Outpatient KADIE NEVAREZ MD [facility] RAD TRANSIENT ALTERATION OF AWARENESS [id number] 01/25/2015 10:51:00 01/25/2015 12:01:00 DIS Emergency WHITESIDELAWRENCE BOILER INSPECTOR [facility] ER DIFF BREATHING/ELEV HEART RATE [id number] 01/09/2015 11:00:00 01/09/2015 23:59:59 CLS Preadmit MARCELLE NELSON BOILER INSPECTOR [facility] CARD CHEST PAIN DIZZINESS PALPITATIONS [id number] 12/24/2014 10:42:00 01/08/2015 00:01:00 DIS Outpatient MARCELLE NELSON BOILER INSPECTOR [facility] CARD CHEST PAIN DIZZINESS PALPITATIONS [id number] 11/03/2014 14:34:00 11/03/2014 15:57:00 DIS Emergency CAMILLE FISCHER, ASHLEY Bell [facility] ER [id number] 10/09/2014 09:52:00 10/09/2014 23:59:59 CLS Outpatient KADIE NEVAREZ MD [facility] RAD [id number] 08/30/2017 10:15:00 PEN Preadmit SHRAVAN WALSH DO [facility] ENDO BLOOD IN STOOL [id number] 08/22/2016 21:36:00 Document Registration
[2017-08-30 11:10] VITALS: BP 119/74
[2017-08-30 11:40] VITALS: BP 109/76
[2017-08-30 12:00] VITALS: BP 109/76
--- NOTE | 2017-08-30 17:05 | OPERATIVE REPORT ---
DATE OF SERVICE: 08/30/2017 PREOPERATIVE DIAGNOSES: Anal pain, blood in stool. POSTOPERATIVE DIAGNOSIS: Normal colon. PROCEDURE: Colonoscopy. SURGEON: Shravan Llamas DO ANESTHESIA: Per ENVIRONMENTAL EDUCATOR. ESTIMATED BLOOD LOSS: None. COMPLICATIONS: None. INDICATIONS: The patient is a 32-year-old female who has been having some rectal pain and blood in her stools. She understands risks and benefits of procedure and wished to proceed with procedure. Consent was signed in the chart. PROCEDURE: The patient was taken to the endoscopy suite, placed in left lateral recumbent position. Timeout was performed. Digital rectal exam was performed. There were no palpable polyps, mass or ulcerations. The scope was inserted in the rectum and advanced all the way to the cecum with minimal difficulty. Prep was adequate. There were no polyps, mass or ulcerations in the cecum. The scope was inserted into the terminal ileum to the ileocecal valve noting no other pathology. Scope was slowly retracted back to the colon. There were no polyps, mass or ulcerations within the ascending, transverse, descending and sigmoid colon. Once in the rectum, scope was also retroflexed noting some slight internal hemorrhoidal disease. No other pathology noted. Scope was returned to its normal position, slowly withdrawn until completely removed. The patient tolerated procedure well without any complications. She was taken to recovery room in stable condition. RECOMMENDATIONS: The patient will be placed on high fiber diet. We will see how she is doing in 2 weeks and further recommendations pending how she is doing at that time. Job ID: [id number] DocumentID: [id number] Dictated Date: 08/30/2017 10:45:11 Shuttleless Loom Weaver Date: 08/30/2017 17:05:02 Dictated By: SHRAVAN LLAMAS DO MTDD
== END 2017-08-30 12:00 | disposition home or self-care (01) ==
LOC: ENDO 08:16
PROVIDERS: ATTEND Surgery
DX: K92.1 Melena (principal); K62.89 Other specified diseases of anus and rectum; E11.9 Type 2 diabetes mellitus without complications; F17.210 Nicotine dependence, cigarettes, uncomplicated; J45.909 Unspecified asthma, uncomplicated; G40.909 Epilepsy, unspecified, not intractable, without status epilepticus; Z79.82 Long term (current) use of aspirin; Z79.899 Other long term (current) drug therapy
CPT/HCPCS: 84703

== ENCOUNTER 2017-09-03 23:12 | Emergency (ER) | payer MEDICAID ==
[~2017-09-03] VITALS: Ht 154.9 cm; Wt 81.6 kg
--- NOTE | 2017-09-03 23:36 | ED Lower Extremity ---
General Chief Complaint: Lower Extremity Stated Complaint: FEVER AND PAIN L LEG Nursing Triage Note: PT PRESENTS TO ER WITH COMPLAINT OF RIGHT LEG PAIN. STATES ITS BELOW THE KNEE AND FEELS HARDER AND RITCHIE. Nursing Sepsis Screen: No Definite Risk Source: patient, other (BF) Exam Limitations: no limitations History of Present Illness Date Seen by Provider: September 03, 2017 Time Seen by Provider: 23:22 Initial Comments Patient presents to ER by private conveyance with a chief complaint that she's having some right knee pain after walking for the past 2 days. She says she was trying wait it out but she's gotten worse and to walk on. She has not taken any pain medicine 4 hours using a wraps, ice or heat. She does not history of knee problems or any trauma. She has had a right leg fasciotomy. Most of her pain is in the anterior tibial area. Her fasciotomy was after a fracture of her tibia and fibula. She is known to Dr. Broderick locally. She has not seen anybody about her knee this go around. She's having no fevers, chills, nausea, vomiting. She is able walk on it albeit painfully. Allergies and Home Medications Allergies Coded Allergies: latex (Verified Allergy, Severe, BLISTERS, 08/24/17) penicillin (Verified Allergy, Severe, ITCHING, 08/24/17) Sulfa (Sulfonamide Antibiotics) (Verified Allergy, Unknown, RASH, 08/24/17) Home Medications Aspirin 81 Mg Tablet., 81 MG PO DAILY, (Reported) Patient Home Medication List Home Medication List Reviewed: Yes Constitutional: No chills, No diaphoresis, No fever EENTM: No hearing loss, No ear pain Respiratory: No cough, No short of breath Cardiovascular: No chest pain, No edema Gastrointestinal: No abdominal pain, No constipation, No nausea Genitourinary: No discharge, No dysuria : No Musculoskeletal: see HPI; No back pain; joint pain Past Iewyxel-Locbpj-Ahccry Hx Patient Social History Alcohol Use: Occasionally Uses Number of Drinks Today: II Alcohol Beverage of Choice: Other Recreational Drug Use: No Type Used: Cigarettes 2nd Hand Smoke Exposure: Yes Recent Foreign Travel: No Contact w/Someone Who Travel: No Recent Infectious Disease Expo: No Recent Hopitalizations: No Immunizations Up To Date Tetanus Booster (TDap): Less than 5yrs Date of Pneumonia Vaccine: Dec 10, 2014 Seasonal Allergies Seasonal Allergies: Yes Past Medical History Surgeries: Yes (RIGHT LOWR LEG FX'S /ORIF & FASCIOTOMY-12 SURG; IVC FILTER ) Orthopedic, 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, Vascular Surgery Respiratory: Yes (CHILDHOOD) Asthma Cardiac: Yes (PFO, ATRIAL SHUNT, BLOD CLOTS IN LEGS-IVC FILTER) Congenital Heart Disease, Deep Vein Thrombosis Neurological: Yes (HASNT HAD SEIZURE SINCE 2010, STROKE 2013) Headaches /Migraines, Neuropathy, Seizure Disorder, Stroke 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 Disorders: No Female 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 Disorders: Denies 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 Sexually Transmitted Disease: No HIV/AIDS: No Genitourinary: Yes Kidney Stones Gastrointestinal: Yes Colitis, Irritable Bowel Musculoskeletal: Yes (CHRONIC NECK AND BACK PAIN; CHRONIC RIGHT LEG PAIN; RIGHT FOOT DROP) Degenerate Disk Disease, Scoliosis, Chronic Back Pain, Fractures Endocrine: Yes (DIET CONTROLLED DIABETIC) Diabetes, Non-Insulin dep HEENT: Yes ("LEGALLY BLIND" ) Loss of Vision: Bilateral Hearing Impairment: Denies Cancer: No Psychosocial: Yes ADD/ADHD, Anxiety, PTSD, Bipolar, Depression Integumentary: No Blood Disorders: No Adverse Reaction/Blood Tranf: No (N/A) Family Medical History Antiphospholipid syndrome 19 MOTHER Diabetes mellitus 19 FATHER G8 BROTHER FH: aneurysm 19 FATHER FH: lupus 19 MOTHER FHx: congestive heart failure 19 FATHER FHx: renal failure 19 MOTHER Heart murmur 19 MOTHER Lupus anticoagulant disorder 19 MOTHER Patent foramen ovale 19 FATHER Barry syndrome G8 SISTER No Pertinent Family Hx Physical Exam Vital Signs Vital Signs - First Documented 09/03/17 23:17 Temp 97.9 Pulse 99 Resp 20 B/P (MAP) 105/63 (77) Pulse Ox 100 O2 Delivery Room Air Capillary Refill : Less Than 3 Seconds General Appearance: WD/WN, no apparent distress HEENT: PERRL/EOMI, pharynx normal Neck: non-tender, full range of motion, normal inspection Cardiovascular: normal peripheral pulses, regular rate, rhythm Respiratory: no respiratory distress, no accessory muscle use Hips: bilateral hip non-tender, bilateral hip normal inspection, bilateral hip normal range of motion, bilateral hip no evidence of injury Legs: bilateral leg non-tender, bilateral leg normal inspection, bilateral leg normal range of motion, bilateral leg no evidence of injury, bilateral leg other (well-healed scars on right lower extremity from previous fasciotomy) Knees: left knee non-tender, left knee normal inspection; bilateral knee normal range of motion; left knee no evidence of injury; right knee bone tenderness (anterior tibial plateau medial and laterally), right knee other ( little laxity on posterior drawer test and pain. MCL and LCL unremarkable. Able to walk with antalgic gait.) Ankles: bilateral ankle non-tender, bilateral ankle normal inspection, bilateral ankle normal range of motion, bilateral ankle no evidence of injury Neurologic/Tendon: normal motor functions, sensory deficit (some chronic sensory deficits secondary to her fasciotomy), tendon function deficit (chronic findings after fasciotomy) Neurologic/Psychiatric: alert, oriented x 3 Skin: normal color, warm/dry Progress/Results/Core Measures Results/Orders Vital Signs/I&O 09/03/17 23:17 Temp 97.9 Pulse 99 Resp 20 B/P (MAP) 105/63 (77) Pulse Ox 100 O2 Delivery Room Air Blood Pressure Mean: 77 Progress Progress Note : Time: 23:59 Progress Note Review start her on rice therapy, NSAIDs and some low-dose prednisone 20 mg daily for 5 days and have her follow-up with Dr. Broderick for reexamination of her knee after 2 weeks. Departure Impression Primary Impression: Sprain of right knee Qualified Codes: S83.91XA - Sprain of unspecified site of right knee, initial encounter Disposition: 01 HOME, SELF-CARE Condition: Stable Departure-Patient Inst. Decision time for Depature: 23:59 Referrals: HIEU YAP MD (PCP/Family) Primary Care Physician Patient Instructions: Knee Sprain (DC) Add. Discharge Instructions: Tuesday please call Dr. Broderick and request an appointment for your need to be reexamined in about 2 weeks. Start taking either ibuprofen 800 mg every 8 hours or Naprosyn 2 capsules twice a day on a schedule for the next 2 weeks. You can continue taking her aspirin. Can also take Tylenol 1000 mg every 8 hours as needed for breakthrough pain. Apply an ice pack for 20 minutes every 4 hours for the first 3 days. Apply the Oneil bandage or a neoprene knee sleeve for compression around her knee. Stay off your knee when you don't need to and keep it elevated above the level of your heart. 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 All discharge instructions reviewed with patient and/or family. Voiced understanding. Scripts Prednisone (Prednisone) 20 Mg Tab 20 MG PO DAILY for 5 Days, #5 TAB 0 Refills Prov: MAURIZIO THURMAN 09/04/17 Copy Copies To 1: TU HARRIS TITUS J September 03, 2017 23:36
[2017-09-04] MEDS ORDERED: PRD20T PO (00:01)
[2017-09-04] MEDS: KETOROLAC 30 MG/ML VIAL IM ONE (00:02)
[2017-09-04 00:17] VITALS: BP 105/63
[2017-09-04] MEDS ORDERED: POLY255P (18:01)
[2017-09-04] MEDS ORDERED: METH4TAB PO (19:39)
[2017-09-04] MEDS ORDERED: TRAM-42 PO (19:39)
== END 2017-09-04 00:17 | disposition home or self-care (01) ==
LOC: EDUNIT# 23:12 → ER 23:15
DX: S83.91XA Sprain of unspecified site of right knee, initial encounter (principal); J45.909 Unspecified asthma, uncomplicated; G43.909 Migraine, unspecified, not intractable, without status migrainosus; G40.909 Epilepsy, unspecified, not intractable, without status epilepticus; E11.9 Type 2 diabetes mellitus without complications; F90.9 Attention-deficit hyperactivity disorder, unspecified type; F41.9 Anxiety disorder, unspecified; F31.9 Bipolar disorder, unspecified; H54.8 Legal blindness, as defined in USA; Z98.51 Tubal ligation status; Z86.73 Personal history of transient ischemic attack (TIA), and cerebral infarction without residual deficits; Z86.718 Personal history of other venous thrombosis and embolism; Z87.442 Personal history of urinary calculi; Z77.22 Contact with and (suspected) exposure to environmental tobacco smoke (acute) (chronic); Z88.0 Allergy status to penicillin; Z88.2 Allergy status to sulfonamides; Z91.040 Latex allergy status; X50.0XXA Overexertion from strenuous movement or load, initial encounter; Y93.01 Activity, walking, marching and hiking
CPT/HCPCS: 96372; 99284

== ENCOUNTER 2017-09-04 17:13 | Emergency (ER) | payer MEDICAID ==
[~2017-09-04] VITALS: Ht 154.9 cm; Wt 81.7 kg
[~2017-09-04 17:13] MED LIST changes: +PRD20T PO
[2017-09-04] MEDS ORDERED: POLY255P (18:01)
--- NOTE | 2017-09-04 18:13 | ED Lower Extremity ---
General Chief Complaint: Lower Extremity Stated Complaint: R LEG PAIN Nursing Triage Note: c/o pain for 3 days, reports swelling worse Nursing Sepsis Screen: No Definite Risk Source: patient Exam Limitations: no limitations History of Present Illness Date Seen by Provider: September 04, 2017 Time Seen by Provider: 18:00 Initial Comments C/O RIGHT LOWER LEG PAIN, JUST BELOW KNEE PAIN BEGAN 3 DAYS AGO PT HAS COMPLEX OLD INJURY TO RIGHT LEG WITH MULTIPLE SURGERIES AND HAS CHRONIC PAIN AND SWELLING TO THIS LEG, BUT IS USUALLY AROUND MID ASPECT OF RIGHT LOWER LEG, AND NOT UP THIS HIGH HAS ALSO HAD SWELLING PROXIMALLY, WHICH IS NOT NORMAL NO CHANGE IN CHRONIC NUMBNESS AND TINGLING TO THIS LEG WELL LEFT FOOT PT HAS ALSO HAD PRIOR DVT WITH CVA AND RIGHT SIDED WEAKNESS, FOLLOWING RIGHT LEG INJURY NO NEW INJURY HAS NOT TAKEN ANYTHING FOR PAIN HAS CANE AND WALKER THAT SHE USES PRN, BUT HAS NOT HAD TO USE LATELY WAS SEEN IN THIS ER LAST PM FOR THIS PROBLEM, NO TESTS DONE AND NO RX'S GIVEN. PT STATES SHE HAS BEEN WRAPPING IT AND PUTTING ICE ON IT, WITH NO RELIEF PT WITH MULTIPLE VISITS FOR VARIOUS COMPLAINTS PT HAD COLONOSCOPY 08/30/[address] WALSH-NORMAL PT HAD LOOP RECORDER IMPLANTED 08/23/[address] VALDIVIA FOR SUBJECTIVE PALPITATIONS PCP: DR. Kenny YAP--HAS NOT SEEN IN AT LEAST A MONTH ORTHOPEDIC SURGEON: DR. GUTIERREZ--HAS NOT SEEN IN A LONG TIME GENERAL SURGEON: DR. WALSH Allergies and Home Medications Allergies Coded Allergies: latex (Verified Allergy, Severe, BLISTERS, 08/24/17) penicillin (Verified Allergy, Severe, ITCHING, 08/24/17) Sulfa (Sulfonamide Antibiotics) (Verified Allergy, Unknown, RASH, 08/24/17) Home Medications Methylprednisolone 4 Mg Tab.ds.pk, 4 MG PO UD Prescribed by: JUAN GONZALEZ on 09/04/171938 Tramadol HCl 50 Mg Tablet, 50 MG PO Q4H Prescribed by: JUAN GONZALEZ on 09/04/171938 Patient Home Medication List Home Medication List Reviewed: Yes Constitutional: no symptoms reported Respiratory: no symptoms reported Cardiovascular: no symptoms reported Musculoskeletal: see HPI Skin: no symptoms reported Psychiatric/Neurological: See HPI Past Trkzmhb-Slzqig-Gbgtur Hx Patient Social History Alcohol Use: Occasionally Uses Number of Drinks Today: II Alcohol Beverage of Choice: Other Recreational Drug Use: No Smoking Status: Current Everyday Smoker (1 PPD) Type Used: Cigarettes (1 PPD) 2nd Hand Smoke Exposure: Yes Recent Foreign Travel: No Contact w/Someone Who Travel: No Recent Infectious Disease Expo: No Recent Hopitalizations: No Physical Abuse: No Sexual Abuse: No Immunizations Up To Date Tetanus Booster (TDap): Less than 5yrs Date of Pneumonia Vaccine: Dec 10, 2014 Seasonal Allergies Seasonal Allergies: Yes Past Medical History Surgeries: Yes (RIGHT LOWER LEG FX'S /ORIF & FASCIOTOMY-12 SURG; IVC FILTER; COLONOSCOPY 08/30/17; LOOP RECORDER 08/23/17 ) Orthopedic, 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, Vascular Surgery Respiratory: Yes (CHILDHOOD) Asthma Cardiac: Yes (PFO AND ATRIAL SHUNT--NO REPAIR; DVT RIGHT LEG, POST RIGHT LEG FX/ORIF/FASCIOTOMY--IVC FILTER) Congenital Heart Disease, Deep Vein Thrombosis, Palpitations Neurological: Yes (HASNT HAD SEIZURE SINCE 2010; CVA WITH RIGHT SIDED WEAKNESS IN 2013; RIGHT LOWER LEG FX/ORIF WITH POST OP DVT AND COMPARTMENT SYNDROME WITH FASCIOTOMY AND DEVELOPED DVT WHICH CAUSED STROKE--ALSO WITH PFO AND ATRIAL SHUNT ; SUBSEQUENT RIGHT FOOT DROP AND NEUROPATHY IN BOTH FEET) Headaches /Migraines, Neuropathy, Seizure Disorder, Stroke 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 Disorders: No Female 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 Disorders: 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 Sexually Transmitted Disease: No HIV/AIDS: No Genitourinary: Yes Kidney Stones Gastrointestinal: Yes Colitis, Irritable Bowel Musculoskeletal: Yes (CHRONIC NECK AND BACK PAIN; CHRONIC RIGHT LEG PAIN; RIGHT FOOT DROP) Degenerate Disk Disease, Scoliosis, Chronic Back Pain, Fractures Endocrine: Yes (DIET CONTROLLED DIABETIC) Diabetes, Non-Insulin dep HEENT: Yes ("LEGALLY BLIND" ) Loss of Vision: Bilateral Hearing Impairment: Denies Cancer: No Psychosocial: Yes (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) ADD/ADHD, Anxiety, PTSD, Suicide Attempts, Bipolar, Depression Nursing Suicide Risk Score: 0 Integumentary: No Blood Disorders: No Adverse Reaction/Blood Tranf: No (N/A) Family Medical History Antiphospholipid syndrome 19 MOTHER Diabetes mellitus 19 FATHER G8 BROTHER FH: aneurysm 19 FATHER FH: lupus 19 MOTHER FHx: congestive heart failure 19 FATHER FHx: renal failure 19 MOTHER Heart murmur 19 MOTHER Lupus anticoagulant disorder 19 MOTHER Patent foramen ovale 19 FATHER Barry syndrome G8 SISTER No Pertinent Family Hx Physical Exam Vital Signs Vital Signs - First Documented 09/04/17 17:55 Temp 98.3 Pulse 93 Resp 18 B/P (MAP) 141/85 (103) Pulse Ox 97 Capillary Refill : Less Than 3 Seconds General Appearance: no apparent distress, obese Cardiovascular: normal peripheral pulses, regular rate, rhythm, no murmur Respiratory: normal breath sounds Hips: right hip normal inspection Legs: right leg other (TENDERNESS TO PROXIMAL HALF OF ANTERIOR ASPECT OF RIGHT LOWER LEG. NO OBVIOUS SWELLING NOTED AT THIS TIME. NO EXTERNAL EVIDENCE OF NEW TRAUMA--MULTIPLE SCARS/POST OP -POST TRAUMATIC CHANGES FROM OLD INJURY. DISTAL SENSORY / VASCULAR INTACT. HAS CHRONIC RIGHT FOOT DROP) Knees: right knee other ( ABOVE) Ankles: right ankle non-tender Feet: right foot non-tender Neurologic/Tendon: other (SLIGHTLY DECREASED SENSATION TO BOTH FEET. RIGHT FOOT DROP. RIGHT SIDE WEAKNESS--ALL CHRONIC AND STABLE) Neurologic/Psychiatric: physical therapist aide II-XII nml as tested, alert, normal mood/affect, oriented x 3, other (CHRONIC RIGHT FOOT DROP AND RIGHT SIDED WEAKNESS AND BILATERAL FEET WITH DECREASED SENSATIN) Skin: normal color, warm/dry, tattoos/piercings (TATTOOS) Progress/Results/Core Measures Results/Orders My Orders Orders - JUAN GONZALEZ DO Tibia/Fibula, Right, 2 Views (09/04/17 18:07) Knee, Right, 3 Views (09/04/17 18:07) Us Venous Lower Ext Rt (09/04/17 18:45) Prednisone Tablet (Deltasone Tablet) (09/04/17 19:45) Rx-Tramadol Hcl (Rx-Ultram) (09/04/17 19:36) Vital Signs/I&O 09/04/17 09/04/17 17:55 19:49 Temp 98.3 98.3 Pulse 93 93 Resp 18 18 B/P (MAP) 141/85 (103) 141/85 (103) Pulse Ox 97 97 Blood Pressure Mean: 103 Diagnostic Imaging Comments XRAYS RIGHT KNEE AND TIB-FIB--NO ACUTE PROCESS, CHRONIC/STABLE POST OP CHANGES, PER RADIOLOGIST REPORT @ 1845 ULTRASOUND RIGHT LEG--NO DVT, PER TECH REPORT @ 1934 AND PER RADIOLOGIST REPORT Reviewed: Reviewed by Me Departure Impression Primary Impression: EXACERBATION OF CHRONIC RIGHT LEG PAIN Disposition: 01 HOME, SELF-CARE Condition: Stable Departure-Patient Inst. Referrals: HIEU YAP MD (PCP/Family) Primary Care Physician Patient Instructions: CHRONIC PAIN Add. Discharge Instructions: WHITNEY WRAP TO LEG ELEVATE LEG MUCH POSSIBLE USE YOUR WALKER NEEDED FOR PAIN ALTERNATE ICE AND HEAT TO LEG AT 20 MINUTE INTERVALS FOLLOW UP WITH DR. GUTIERREZ THIS WEEK FOR FURTHER CARE All discharge instructions reviewed with patient and/or family. Voiced understanding. Scripts Tramadol HCl (Ultram) 50 Mg Tablet 50 MG PO Q4H, #20 TAB Prov: JUAN GONZALEZ DO 09/04/17 Methylprednisolone (Medrol) 4 Mg Tab.ds.pk 4 MG PO UD, #1 PKG Prov: JUAN GONZALEZ DO 09/04/17 Images Extremities-Lower 1 - Tenderness JUAN GONZALEZ DO September 04, 2017 18:13
--- NOTE | 2017-09-04 18:28 | Diagnostic Imaging Report ---
INDICATION: Increased pain and swelling of the right knee. History of prior ORIF approximately three years ago. EXAMINATION: Three views of the right knee were obtained. FINDINGS: Changes of prior ORIF of the tibial plateau with no abnormal lucencies around the fixation hardware. There is no acute fracture, dislocation or other acute bony abnormality seen. IMPRESSION: Prior surgery. No acute abnormality is seen. There is no significant change from a prior study from 11/22/2016. Dictated by: Dictated on workstation # [id number]
--- NOTE | 2017-09-04 18:28 | Diagnostic Imaging Report ---
INDICATION: Pain and swelling of the right lower leg. EXAMINATION: AP and lateral views of the right tibia and fibula were obtained. FINDINGS: No fracture, dislocation or other acute bony abnormality. There are changes of prior ORIF of the tibial plateau. No erosions or abnormal lucencies are seen around the fixation hardware. IMPRESSION: Prior surgery. No acute abnormality is seen. Dictated by: Dictated on workstation # [id number]
[2017-09-04] MEDS ORDERED: RX-TRAMADOL 50 MG (ULTRAM) TAB PPK#4 PO STA (19:36)
[2017-09-04] MEDS ORDERED: TRAM-42 PO (19:39)
[2017-09-04] MEDS ORDERED: METH4TAB PO (19:39)
[2017-09-04] MEDS ORDERED: predniSONE 20 MG TAB PO ONE (19:45)
--- NOTE | 2017-09-04 19:45 | Diagnostic Imaging Report ---
PROCEDURE: US right lower extremity venous. TECHNIQUE: Multiple real-time grayscale images were obtained over the right lower extremity in various projections. Additional duplex Doppler and color Doppler images were also obtained. INDICATION: Right lower extremity swelling and pain Examination shows normal augmentation, compression and color Doppler flow with no deep venous thrombosis or other abnormality seen. IMPRESSION: No abnormality is seen. Dictated by: Dictated on workstation # [id number]
[2017-09-04 19:49] VITALS: BP 141/85
== END 2017-09-04 19:48 | disposition home or self-care (01) ==
LOC: EDUNIT# 17:13 → ER 17:14
DX: M79.661 Pain in right lower leg (principal); G89.29 Other chronic pain; J45.909 Unspecified asthma, uncomplicated; G43.909 Migraine, unspecified, not intractable, without status migrainosus; E11.40 Type 2 diabetes mellitus with diabetic neuropathy, unspecified; F90.9 Attention-deficit hyperactivity disorder, unspecified type; F41.9 Anxiety disorder, unspecified; F43.10 Post-traumatic stress disorder, unspecified; F31.9 Bipolar disorder, unspecified; G40.909 Epilepsy, unspecified, not intractable, without status epilepticus; F17.210 Nicotine dependence, cigarettes, uncomplicated; Z98.890 Other specified postprocedural states; Z91.5 Personal history of self-harm; Z82.49 Family history of ischemic heart disease and other diseases of the circulatory system; Z87.19 Personal history of other diseases of the digestive system; Z86.718 Personal history of other venous thrombosis and embolism; Z86.73 Personal history of transient ischemic attack (TIA), and cerebral infarction without residual deficits; Z88.0 Allergy status to penicillin; Z88.2 Allergy status to sulfonamides; Z98.51 Tubal ligation status
CPT/HCPCS: 73562; 73590

== ENCOUNTER 2017-11-19 22:42 | Emergency (ER) | payer MEDICAID ==
[~2017-11-19] VITALS: Ht 154.9 cm; Wt 81.7 kg
[~2017-11-19 22:42] MED LIST changes: +METH4TAB PO; +POLY255P
[2017-11-19] MEDS ORDERED: ALTEPLASE 100 MG/VIAL (ACTIVASE) IV ONE ×2 (22:58→23:45)
[2017-11-19 23:00] LABS: BASOPHILS % (AUTO) 0 % (0-10); EOSINOPHILS # (AUTO) 0.2 10^3/uL (0.0-0.3); EOSINOPHILS % (AUTO) 2 % (0-10); HEMATOCRIT 36 % (35-52); HEMOGLOBIN 11.5 G/DL (11.5-16.0); LYMPHOCYTES # (AUTO) 4.7 X 10^3 (1.0-4.0); LYMPHOCYTES % (AUTO) 39 % (12-44); MEAN CORPUSCULAR HEMOGLOBIN 25 PG (25-34); MEAN CORPUSCULAR HGB CONC 32 G/DL (32-36); MEAN CORPUSCULAR VOLUME 80 FL (80-99); MEAN PLATELET VOLUME 8.9 FL (7.4-10.4); MONOCYTES # (AUTO) 0.6 X 10^3 (0.0-1.0); MONOCYTES % (AUTO) 5 % (0-12); NEUTROPHILS # (AUTO) 6.6 X 10^3 (1.8-7.8); NEUTROPHILS % (AUTO) 54 % (42-75); PLATELET COUNT 464 10^3/uL (130-400); RED BLOOD COUNT 4.53 10^6/uL (4.35-5.85); RED CELL DISTRIBUTION WIDTH 17.8 % (10.0-14.5); WHITE BLOOD COUNT 12.2 10^3/uL (4.3-11.0)
[2017-11-19 23:14] LABS: ALANINE AMINOTRANSFERASE 13 U/L (0-55); ALBUMIN 4.2 GM/DL (3.2-4.5); ALKALINE PHOSPHATASE 46 U/L (40-136); BILIRUBIN,TOTAL 0.3 MG/DL (0.1-1.0); BUN/CREATININE RATIO 10; CALCIUM 9.8 MG/DL (8.5-10.1); CARBON DIOXIDE 18 MMOL/L (21-32); CHLORIDE 108 MMOL/L (98-107); CREATININE SERUM 0.72 MG/DL (0.60-1.30); GFR ESTIMATED > 60; GLUCOSE 103 MG/DL (70-105); POTASSIUM 3.4 MMOL/L (3.6-5.0); SODIUM 138 MMOL/L (135-145); TOTAL PROTEIN 7.4 GM/DL (6.4-8.2)
[2017-11-19 23:35] LABS: FIBRIN DEGRADATION PRODUCTS 0.26 UG/ML (0.00-0.49)
[2017-11-19 23:39] LABS: INR 1.1 (0.8-1.4); PROTHROMBIN TIME PATIENT 14.4 SEC (12.2-14.7)
[2017-11-19 23:42] LABS: BILIRUBIN,URINE NEGATIVE (NEGATIVE); CLARITY,URINE CLEAR; COLOR,URINE YELLOW; GLUCOSE, URINE (UA) NEGATIVE (NEGATIVE); KETONES,URINE NEGATIVE (NEGATIVE); LEUKOCYTE ESTERASE ,URINE NEGATIVE (NEGATIVE); NITRITE,URINE NEGATIVE (NEGATIVE); PH,URINE 6 (5-9); PROTEIN,URINE NEGATIVE (NEGATIVE); UROBILINOGEN,URINE NORMAL (NORMAL)
--- NOTE | 2017-11-19 23:48 | ED Neurological Problem ---
General Chief Complaint: Neuro-Stroke Like Symptoms Stated Complaint: RT SIDE NUMBNESS Nursing Triage Note: 2230 LAST KNOWN WELL TIME, PT RIDING IN CAR AFTER LEAVING BAR WHEN LEFT SIDED WEAKNESS/NUMBNESS STARTED. Nursing Sepsis Screen: No Definite Risk Source: patient Exam Limitations: no limitations History of Present Illness Date Seen by Provider: Nov 19, 2017 Time Seen by Provider: 22:45 Initial Comments This 32-year-old young lady presents to the emergency room with sudden onset of left-sided facial droop, difficulty speaking, and left-sided weakness/numbness. Symptoms started abruptly at 22:30. Patient had been out at a local establishment drinking alcohol. She was on her way home in the car when symptoms started. She presented promptly to the emergency room. She is alert and oriented. She has obvious left-sided facial deficits. She complains of a left-sided visual field cut. Her left extremities appear to be nearly flaccid and she has no sensation of the left arm or leg. Patient has a history of prior stroke about 5 years ago. She also has history of right lower extremity trauma resulting in compartment syndrome and DVT. She had been treated with Xarelto and an IVC filter. She stopped Xarelto about 4 months ago. She is not presently on any anticoagulation. Patient's NIH stroke score was 18. Four of those points come from right sided leg weakness that is chronic from her prior trauma. Patient has a loop recorder but denies any known history of arrhythmia. She is in sinus rhythm on the monitor. Allergies and Home Medications Allergies Coded Allergies: latex (Verified Allergy, Severe, BLISTERS, 08/24/17) penicillin (Verified Allergy, Severe, ITCHING, 08/24/17) Sulfa (Sulfonamide Antibiotics) (Verified Allergy, Unknown, RASH, 08/24/17) Patient Home Medication List Home Medication List Reviewed: Yes Review of Systems Constitutional: see HPI Eyes: See HPI Ears, Nose, Mouth, Throat: see HPI Respiratory: no symptoms reported Cardiovascular: no symptoms reported Gastrointestinal: no symptoms reported Genitourinary: no symptoms reported : No Musculoskeletal: no symptoms reported Skin: no symptoms reported Psychiatric/Neurological: See HPI Endocrine: No Symptoms Reported Hematologic/Lymphatic: No Symptoms Reported Past Dusitfz-Qtvjyi-Psmehj Hx Past Med/Social Hx: Reviewed and Corrections made Patient Social History Alcohol Use: Occasionally Uses Number of Drinks Today: II Alcohol Beverage of Choice: Other Recreational Drug Use: No Smoking Status: Current Everyday Smoker Type Used: Cigarettes 2nd Hand Smoke Exposure: Yes Recent Foreign Travel: No Contact w/Someone Who Travel: No Recent Infectious Disease Expo: No Recent Hopitalizations: No Immunizations Up To Date Tetanus Booster (TDap): Less than 5yrs Date of Pneumonia Vaccine: Dec 10, 2014 Seasonal Allergies Seasonal Allergies: Yes Past Medical History Surgeries: Yes (LOOP RECORDER) Orthopedic (fasciotomy of the right lower extremity for compartment syndrome), 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, Vascular Surgery (IVC filter) Respiratory: Yes (CHILDHOOD) Asthma Cardiac: Yes Congenital Heart Disease, Deep Vein Thrombosis, Palpitations Neurological: Yes Headaches /Migraines, Neuropathy, Seizure Disorder, Stroke 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 Disorders: No Female 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 Disorders: Denies 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 MD History: IUD, 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 Sexually Transmitted Disease: No HIV/AIDS: No Genitourinary: Yes Kidney Stones Gastrointestinal: Yes Colitis, Irritable Bowel Musculoskeletal: Yes (CHRONIC NECK AND BACK PAIN; CHRONIC RIGHT LEG PAIN; RIGHT FOOT DROP; HX OF RLE COMPARTMENT SYND WITH CHRONIC DISFIGUREMENT) Degenerate Disk Disease, Scoliosis, Chronic Back Pain, Fractures Endocrine: Yes (DIET CONTROLLED DIABETIC) Diabetes, Non-Insulin dep HEENT: Yes ("LEGALLY BLIND" ) Loss of Vision: Bilateral Hearing Impairment: Denies Cancer: No Psychosocial: Yes (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) ADD/ADHD, Anxiety, PTSD, Suicide Attempts, Bipolar, Depression Integumentary: No Blood Disorders: No Adverse Reaction/Blood Tranf: No (N/A) Family Medical History Reviewed Nursing Family Hx Antiphospholipid syndrome 19 MOTHER Diabetes mellitus 19 FATHER G8 BROTHER FH: aneurysm 19 FATHER FH: lupus 19 MOTHER FHx: congestive heart failure 19 FATHER FHx: renal failure 19 MOTHER Heart murmur 19 MOTHER Lupus anticoagulant disorder 19 MOTHER Patent foramen ovale 19 FATHER Barry syndrome G8 SISTER No Pertinent Family Hx Physical Exam Vital Signs Vital Signs - First Documented 11/20/17 00:30 O2 Flow Rate 3.00 Capillary Refill : Less Than 3 Seconds Height, Weight, BMI Height: 5'1.00" Weight: 180lbs. 1.0oz. 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 Could not say "card player"), facial droop (left-sided), motor weakness (left upper and lower extremity), sensory deficit (left upper and lower extremity), other ( tearful) Crainal Nerves: PERRL, abnormal speech, facial asymmetry, facial droop, facial weakness Motor/Sensory: sensory deficit, weak motor strength LUE, weak motor strength LLE Skin: normal color, warm/dry Stroke Onset of Symptoms Date of Onset of Symptoms: Nov 19, 2017 NIH Stroke Scale Assessment Level of Consciousness: 0=Alert (0), Level of Consciousness-Questions: 1= Answers one question (1), LOC Commands: 0=Performs both tasks (0), Visual Doyle : 1=Partial hemianopia (1), Facial Movement (Facial Paresis): 2=Partial paralysis (2), Motor Function-Arms Right: 0=No drift (0), Motor Function-Arms Left: 2=Some effort/gravity (2), Motor Function-Legs Right: 4=No movement (4), Motor Function-Legs Left: 3=No effort/gravity (3), Limb Ataxia: 0=Absent (0), Sensory: 2=Severe to total loss (2), Best Language: 1=Mild to moderat aphasia (1 ), Dysarthria: 1=Mild to moderate loss (1), Extinction & Inattention: 0=No abnormality (0), Total: 17 Stroke Thrombolytic Exclusion Age 18 or Over: Yes History of CVA: No Severe Hypertension: No GI or Bleed: No Subarachnoid Hemorrhage: No Intracranial Neoplasm/Aneurysm: No Puncture of Non-Compressible V: No Recent CPR: No Diabetic Hemorrhagic Retinopat: No Organ Biopsy: No Recent Obstetric Delivery: No Significant Hepatic Dysfunctio: No NIH Stoke Scale >22: No IV - TPa Received IV - TPa Procedure Performed?: Yes Progress/Results/Core Measures Results/Orders Lab Results Laboratory Tests Test 11/19/17 22:45 11/19/17 23:30 Range/Units White Blood Count 12.2 H 4.3-11.0 10^3/uL Red Blood Count 4.53 4.35-5.85 10^6/uL Hemoglobin 11.5 11.5-16.0 G/DL Hematocrit 36 35-52 % Mean Corpuscular Volume 80 80-99 FL Mean Corpuscular Hemoglobin 25 25-34 PG Mean Corpuscular Hemoglobin Concent 32 32-36 G/DL Red Cell Distribution Width 17.8 H 10.0-14.5 % Platelet Count 464 H 130-400 10^3/uL Mean Platelet Volume 8.9 7.4-10.4 FL Neutrophils (%) (Auto) 54 42-75 % Lymphocytes (%) (Auto) 39 12-44 % Monocytes (%) (Auto) 5 0-12 % Eosinophils (%) (Auto) 2 0-10 % Basophils (%) (Auto) 0 0-10 % Neutrophils # (Auto) 6.6 1.8-7.8 X 10^3 Lymphocytes # (Auto) 4.7 H 1.0-4.0 X 10^3 Monocytes # (Auto) 0.6 0.0-1.0 X 10^3 Eosinophils # (Auto) 0.2 0.0-0.3 10^3/uL Basophils # (Auto) 0.0 0.0-0.1 10^3/uL Erythrocyte Sedimentation Rate 11 0-20 MM/HR Prothrombin Time 14.4 12.2-14.7 SEC INR Comment 1.1 0.8-1.4 Activated Partial Thromboplast Time 32 24-35 SEC D-Dimer 0.26 0.00-0.49 UG/ML Sodium Level 138 135-145 MMOL/L Potassium Level 3.4 L 3.6-5.0 MMOL/L Chloride Level 108 H 98-107 MMOL/L Carbon Dioxide Level 18 L 21-32 MMOL/L Anion Gap 12 5-14 MMOL/L Blood Urea Nitrogen 7 7-18 MG/DL Creatinine 0.72 0.60-1.30 MG/DL Estimat Glomerular Filtration Rate > 60 BUN/Creatinine Ratio 10 Glucose Level 103 70-105 MG/DL Calcium Level 9.8 8.5-10.1 MG/DL Corrected Calcium 9.6 8.5-10.1 MG/DL Total Bilirubin 0.3 0.1-1.0 MG/DL Aspartate Amino Transf (AST/SGOT) 15 5-34 U/L Alanine Aminotransferase (ALT/SGPT) 13 0-55 U/L Alkaline Phosphatase 46 40-136 U/L Troponin I < 0.30 <0.30 NG/ML C-Reactive Protein High Sensitivity 0.48 0.00-0.50 MG/DL Total Protein 7.4 6.4-8.2 GM/DL Albumin 4.2 3.2-4.5 GM/DL Serum Test, Qualitative NEGATIVE NEGATIVE Serum Alcohol 103 H <10 MG/DL Urine Color YELLOW Urine Clarity CLEAR Urine pH 6 5-9 Urine Specific [place] 1.010 L 1.016-1.022 Urine Protein NEGATIVE NEGATIVE Urine Glucose (UA) NEGATIVE NEGATIVE Urine Ketones NEGATIVE NEGATIVE Urine Nitrite NEGATIVE NEGATIVE Urine Bilirubin NEGATIVE NEGATIVE Urine Urobilinogen NORMAL NORMAL MG/DL Urine Leukocyte Esterase NEGATIVE NEGATIVE Urine RBC (Auto) NEGATIVE NEGATIVE Urine RBC NONE /HPF Urine WBC NONE /HPF Urine Squamous Epithelial Cells 0-2 /HPF Urine Crystals NONE /LPF Urine Bacteria NEGATIVE /HPF Urine Casts NONE /LPF Urine Mucus NEGATIVE /LPF Urine Culture Indicated NO Urine Opiates Screen NEGATIVE NEGATIVE Urine Oxycodone Screen NEGATIVE NEGATIVE Urine Methadone Screen NEGATIVE NEGATIVE Urine Propoxyphene Screen NEGATIVE NEGATIVE Urine Barbiturates Screen NEGATIVE NEGATIVE Ur Tricyclic Antidepressants Screen NEGATIVE NEGATIVE Urine Phencyclidine Screen NEGATIVE NEGATIVE Urine Amphetamines Screen NEGATIVE NEGATIVE Urine Methamphetamines Screen NEGATIVE NEGATIVE Urine Benzodiazepines Screen NEGATIVE NEGATIVE Urine Cocaine Screen NEGATIVE NEGATIVE Urine Cannabinoids Screen NEGATIVE NEGATIVE My Orders Orders - MARIA ELENA MORA MD Cbc With Automated Diff (11/19/17 22:52) Protime With Inr (11/19/17 22:52) Partial Thromboplastin Time (11/19/17 22:52) Comprehensive Metabolic Panel (11/19/17 22:52) Fibrin Degradation Products (11/19/17 22:52) Troponin I (11/19/17 22:52) Ua Culture If Indicated (11/19/17 22:52) Chest 1 View, Ap/Pa Only (11/19/17 22:52) Ekg Tracing (11/19/17 22:52) Accucheck Stat ONCE (11/19/17 22:52) Saline Lock/Iv-Start (11/19/17 22:52) Saline Lock/Iv-Start (11/19/17 22:52) Vital Signs Stroke Patient Q15M (11/19/17 22:52) Ct Head Wo-R/O Stroke (11/19/17 22:52) O2 (11/19/17 22:52) Intake & Output 06,14,22 (11/19/17 22:52) Monitor-Rhythm Ecg Trace Only (11/19/17 22:52) Dysphagia Screening Tool (11/19/17 22:52) Post Thrombolytic Adminstratio (11/19/17 22:52) Alcohol (11/19/17 22:55) Hcg,Qualitative Serum (11/19/17 22:55) Drug Screen Stat (Urine) (11/19/17 22:55) Ct Angio Head/Neck (11/19/17 22:59) Alteplase (Activase) (Activase Injection (11/19/17 22:58) Alteplase (Activase) (Activase Injection (11/19/17 23:45) Post Thrombolytic Adminstratio (11/19/17 23:34) Hs C Reactive Protein (11/19/17 23:39) Erythrocyte Sedimentation Rate (11/19/17 23:39) Medications Given in ED Vital Signs/I&O 11/19/17 11/19/17 11/20/17 22:45 22:45 00:30 Temp 98.1 98.0 Pulse 91 83 Resp 16 16 B/P (MAP) 135/101 (112) 137/92 (112) Pulse Ox 100 100 96 O2 Delivery Room Air Room Air Nasal Cannula O2 Flow Rate 3.00 Blood Pressure Mean: 112 FSBG Bedside Testing Finger Stick Blood Glucose: 103 Progress Progress Note #1: Time: 23:42 Progress Note Stroke activation was paged immediately upon arrival. NIH stroke score was 18 with significant visual deficits and left-sided numbness and weakness. Patient did not fall out on any TPA exclusion criteria. Case was discussed with Dr. Ro, stroke neurologist at [facility], at 23:22. He recommended TPA. Risks and benefits of TPA were discussed with the patient including possible risk of life- threatening bleed, potentially up to 6 percent. Patient accepts the risk and requests TPA administration. TPA is presently infusing. CT angiogram of head and neck was obtained immediately after the noncontrast CT of the head. CT angiogram has been clouded to [facility] for Dr. Ro to review. Progress Note #2: Time: 23:[address] angiogram was discussed with the radiologist and report was reviewed. It was also discussed with Dr. Ro who reviewed images on the cloud. Patient does not appear to have a large vessel occlusion but appears to have some type of vasoconstrictive process or vasculitis. Patient denied any drug use that could potentiate this. She has no history vasculitis for rheumatologic disease. We discussed the appropriateness of transfer. Given patient's severe symptoms and possible need for specialty services such as neurology and rheumatology, it was felt most appropriate to have patient transferred directly to [facility] as soon as possible. [facility] has been activated. Patient consented to transfer after discussion of risks and benefits. Progress Note #3: Progress Note Patient was transferred to [facility] via helicopter. Inflammatory markers and urine drug screen were normal. Patient had little improvement in symptoms after TPA administration. Initial ECG Impression Date: Nov 19, 2017 Initial ECG Impression Time: 22:45 Initial ECG Rate: 92 Initial ECG Rhythm: Normal Sinus Initial ECG Impression: Normal Comment Normal sinus rhythm with no ST elevation or depression. No abnormal intervals or axis deviation. Diagnostic Imaging Diagonstic Imaging: Xray Plain Films/CT/US/NM/MRI: chest Comments Chest x-ray viewed by me. Report not yet available. No acute abnormality appreciated. Diagonstic Imaging: CT Plain Films/CT/US/NM/MRI: head Comments CT head without contrast viewed by me. [facility] report reviewed. No acute hemorrhage or mass to contraindicate TPA was identified. Diagonstic Imaging: CT Plain Films/CT/US/NM/MRI: other (Angiogram head and neck) Comments CT angiogram head and neck was discussed with the radiologist and Dr. Ro. There was no large vessel occlusion. Findings were suspicious for some type of vasoconstrictive process or vasculitis. Critical Care Note Critical Care Start Time: 22:45 Stop Time: 23:45 Total Time (minutes) 60 Departure Impression Primary Impression: Facial paralysis on left side Additional Impressions: Paralysis of left lower extremity Paralysis of left upper extremity Visual field cut Alcohol intoxication Qualified Codes: F10.929 - Alcohol use, unspecified with intoxication, unspecified Disposition: 02 XFER SHT-TRM HOSP Condition: Stable Transfer Time Spoke to Accepting Phy: 23:22 Transfer Progress Notes Case accepted for transfer by Dr. Ro, stroke neurologist at [facility]. Transfer Time: 00:45 Transfer Facility: [facility] Method of Transfer: Air Departure-Patient Inst. Referrals: HIEU YAP MD (PCP/Family) Primary Care Physician MARIA ELENA MORA MD Nov 19, 2017 23:48
[2017-11-19 23:50] LABS: BACTERIA,URINE NEGATIVE /HPF; SQUAMOUS EPITHELIAL CELL,UR 0-2 /HPF
[2017-11-19 23:57] LABS: AMPHETAMINE SCREEN, URINE NEGATIVE (NEGATIVE); BARBITURATE SCREEN URINE NEGATIVE (NEGATIVE); BENZODIAZEPINES SCREEN URINE NEGATIVE (NEGATIVE); CANNABINOID SCREEN, URINE NEGATIVE (NEGATIVE); COCAINE SCREEN URINE NEGATIVE (NEGATIVE); METHADONE STAT NEGATIVE (NEGATIVE); METHAMPHETAMINE SCREEN URINE S NEGATIVE (NEGATIVE); OPIATE SCREEN URINE NEGATIVE (NEGATIVE); OXYCODONE STAT NEGATIVE (NEGATIVE); PROPOXYPHENE STAT NEGATIVE (NEGATIVE); TRICYCLIC ANTIDEPRESSANTS SCRE NEGATIVE (NEGATIVE)
[2017-11-20] MEDS ORDERED: METO50TA15 (00:28)
[2017-11-20] MEDS ORDERED: LURA60TA2 (00:28)
[2017-11-20] MEDS ORDERED: GABA-488 (00:28)
[2017-11-20 00:30] VITALS: BP 137/92
--- NOTE | 2017-11-20 06:33 | Diagnostic Imaging Report ---
PROCEDURE: CT angiography of the head and CT angiography of the neck with and without contrast. TECHNIQUE: Contiguous noncontrast images were obtained from the skull base through the vertex. After intravenous contrast administration, helical CT angiography of the neck was performed. Source data was reformatted into multiple MIP projections. Delayed post contrast acquisition was also obtained. INDICATION: Weakness. Slurred speech. COMPARISON: CT head without contrast 11/19/2017. FINDINGS: Noncontrast head CT was not repeated. There is no abnormal intracranial enhancement on the delayed postcontrast imaging. No extra-axial fluid collections are seen. No hydrocephalus. No CT evidence of large territorial infarction. The paranasal sinuses and mastoids are unremarkable. Osseous structures are intact. CTA is mildly limited by contrast timing. Conventional aortic arch. The basilar, bilateral carotid, vertebral, anterior cerebral, middle cerebral and posterior cerebral arteries are widely patent without evidence of aneurysm or dissection. The superior, anterior inferior and posterior inferior cerebellar arteries are patent. The dural venous sinuses are grossly patent. No acute CT findings in the cervical spine. The visualized paravertebral soft tissues are unremarkable. The lung apices are clear. IMPRESSION: CTA is mildly limited by contrast timing. No high-grade narrowing, aneurysm or dissection involving the major arteries in the head and neck. Dictated by: Dictated on workstation # [id number]
--- NOTE | 2017-11-20 06:41 | Diagnostic Imaging Report ---
EXAM: CT HEAD WO-R/O STROKE INDICATION: Weakness. Slurred speech. COMPARISON: CT head without contrast 04/17/2017. FINDINGS: No intracranial hemorrhage, mass effect, hydrocephalus or extra-axial fluid collections. No CT evidence of acute infarction. Osseous structures are intact. The visualized paranasal sinuses and mastoids are clear. IMPRESSION: No acute intracranial CT findings. Dictated by: Dictated on workstation # [id number]
--- NOTE | 2017-11-20 07:29 | Diagnostic Imaging Report ---
INDICATION: Slurred speech, weakness COMPARISON: 08/17/2017 FINDINGS: Single view of the chest demonstrates clear lungs bilaterally. The heart is normal. There is no pneumothorax. Cardiac monitoring capsule seen on the left. Osseous structures are age-appropriate. IMPRESSION: Negative chest. Dictated by: Dictated on workstation # [id number]
== END 2017-11-20 00:45 | disposition short-term general hospital (02) ==
LOC: EDUNIT# 22:42 → ER 22:45
DX: G51.0 Bell's palsy (principal); H53.40 Unspecified visual field defects; G83.14 Monoplegia of lower limb affecting left nondominant side; G83.24 Monoplegia of upper limb affecting left nondominant side; F10.129 Alcohol abuse with intoxication, unspecified; J45.909 Unspecified asthma, uncomplicated; G43.909 Migraine, unspecified, not intractable, without status migrainosus; G40.909 Epilepsy, unspecified, not intractable, without status epilepticus; E11.9 Type 2 diabetes mellitus without complications; F90.9 Attention-deficit hyperactivity disorder, unspecified type; F41.9 Anxiety disorder, unspecified; F31.9 Bipolar disorder, unspecified; F43.10 Post-traumatic stress disorder, unspecified; F17.210 Nicotine dependence, cigarettes, uncomplicated; Z98.51 Tubal ligation status; Z95.828 Presence of other vascular implants and grafts; Z91.040 Latex allergy status; Z91.5 Personal history of self-harm; Z82.49 Family history of ischemic heart disease and other diseases of the circulatory system; Z87.19 Personal history of other diseases of the digestive system; Z97.5 Presence of (intrauterine) contraceptive device; Z87.442 Personal history of urinary calculi; Z88.2 Allergy status to sulfonamides; Z88.0 Allergy status to penicillin; Z86.73 Personal history of transient ischemic attack (TIA), and cerebral infarction without residual deficits; Z86.718 Personal history of other venous thrombosis and embolism
CPT/HCPCS: 36415; 51702; 70450; 70496; 70498; 71045; 80053; 80306; 80320; 81000; 84484; 84703; 85025; 85379; 85610; 85652; 85730; 86141; 93005; 93041; 96374

== ENCOUNTER → 2018-01-06 | Outpatient (CLI) | payer MEDICAID ==
[~2018-01-06] MED LIST changes: +GABA-488; +LURA60TA2; +METO50TA15; -OXYC-197 PO; +OXYC1TAB87 PO
--- NOTE | 2018-01-08 22:11 | Diagnostic Imaging Report ---
INDICATION: Bilateral nipple discharge. EXAMINATION: Bilateral breast ultrasound. COMPARISON: There are no prior studies available for comparison. FINDINGS: There is no discrete solid or cystic mass in either retroareolar region to account for the patient's nipple discharge. The remainder of the breast in the axilla were also scanned without evidence for a discrete abnormality. IMPRESSION: 1. There is no abnormality to account for the patient's nipple discharge. 2. If clinical concern regarding an underlying abnormality persists, then mammography should be considered for further study. ACR BI-RADS Category 1: Negative. Result letter will be mailed to the patient. Note: At least 10% of breast cancer is not imaged by mammography. Dictated by: Dictated on workstation # [id number]
== END ==
LOC: RAD 10:37
PROVIDERS: ATTEND Nurse Practitioner Family
DX: N64.52 Nipple discharge (principal)

== ENCOUNTER 2018-01-17 12:57 | Emergency (ER) | payer MEDICAID ==
[~2018-01-17] VITALS: Ht 154.9 cm; Wt 82.6 kg
--- OUTSIDE RECORDS SUMMARY | 2018-01-17 13:21 | XMS REPORT | Clinical Summary ---
Author Author [facility] Organization [facility] Address Unknown Phone Unavailable Care Team Providers Care Stone Dresser Name Role Phone Gail Larson MD PCP Source Comments Some departments are not documenting in the electronic medical record. If you do not see the information that you expected, contact Release of Information in the Health Information Management department at [phone] for further assistance in locating additional records.[facility] Allergies Active Allergy Reactions Severity Noted Date Comments Latex BLISTERS High 11/20/2017 Penicillins ITCHING Low 11/20/2017 Sulfa (Sulfonamide RASH Medium 11/20/2017 Antibiotics) Current Medications Prescription Sig. Disp. Refills Start End Date Status Date lurasidone 60 mg tab Take 1 tablet by mouth Active daily. metoprolol tartrate Take 50 mg by mouth twice Active (LOPRESSOR) 50 mg tablet daily. gabapentin (NEURONTIN) Take 300 mg by mouth Active 300 mg capsule twice daily. amitriptyline (ELAVIL) 25 Take one tablet by mouth 90 tablet 3 Active mg tablet at bedtime daily. 18 naproxen (NAPROSYN) 500 Take one tablet by mouth 60 tablet 0 11/23/19 Active mg tablet twice daily with meals. 18 Take with food. ondansetron (ZOFRAN) 8 mg Take one tablet by mouth 30 tablet 2 Active tabletIndications: every 8 hours as needed 18 chronic migraines with for Nausea or Vomiting. intractable nausea/vomiting methylPREDNIsolone Take medication as 21 tablet 0 11/24/19 Active (MEDROL DOSEPAK) 4 mg directed on package for 6 18 tablet days. Take with food. Active Problems Problem Noted Date Foot drop, right 04/11/2014 DVT (deep venous thrombosis) ([facility]) 04/11/2014 Overview: with broken bone PFO (patent foramen ovale) Migraine Disassociation disorder Bipolar affective disorder (HCC) Stroke-like symptom Encounters Date Type Specialty Care Team Description 11/24/2017 Ancillary Radiology Outpatient, Radiologist Diagnosis unknown Orders 11/23/2017 Telephone Neurology Tangela Weber MD Medication Question 11/20/2017 [facility] Donnie Ro MD PFO (patent foramen - Encounter Alicia Jorge MD ovale) 11/22/2017 Tangela Weber MD 11/20/2017 Procedure Pass 11/19/2017 Hospital Radiology Encounter 11/19/2017 Hospital Radiology Encounter 11/19/2017 Hospital Radiology Encounter from Last 3 Months Social History Tobacco Use Types Packs/Day Years Used Date Current Every Day Smoker Cigarettes Smokeless Tobacco: Never Used Tobacco Cessation: Ready to Quit: Yes; Counseling Given: No Alcohol Use Drinks/Week oz/Week Comments Yes Sex Assigned at Date Recorded Not on file Last Filed Vital Signs Vital Sign Reading Time Taken Blood Pressure 110/54 11/22/2017 12:00 PM CDT Pulse 78 11/22/2017 12:00 PM CDT Temperature 36.7 C (98.1 F) 11/22/2017 12:00 PM CDT Respiratory Rate - - Oxygen Saturation 98% 11/22/2017 12:00 PM CDT Inhaled Oxygen - - Concentration Weight 102.2 kg (225 lb 5 oz) 11/22/2017 7:27 AM CDT Height 154.9 cm (5' 1") 11/21/2017 10:01 AM CDT Body Mass Index 42.57 11/22/2017 7:27 AM CDT Plan of Treatment Health Maintenance Due Date Last Done Comments PHYSICAL (COMPREHENSIVE) 1992 EXAM PERTUSSIS VACCINE 1996 HIV SCREENING 2000 TETANUS VACCINE 2002 CERVICAL CANCER SCREENING 07/13/2015 INFLUENZA VACCINE 11/09/2017 Implants Implanted Type Area Rn Birthing Device Expiration Model / Identifier Date Serial / Lot Ivc Filter Other Linq Loop Recorder Other Procedures Procedure Name Priority Date/Time Associated Diagnosis Comments PHOSPHORUS Routine 11/22/2017 Results for this 3:57 AM CDT procedure are in the results section. BASIC METABOLIC PANEL Routine 11/22/2017 Results for this 3:57 AM CDT procedure are in the results section. 2-D + DOPPLER Routine 11/21/2017 Results for this ECHOCARDIOGRAM 10:01 AM CDT procedure are in the results section. IONIZED CALCIUM Routine 11/21/2017 Results for this 3:30 AM CDT procedure are in the results section. PHOSPHORUS Routine 11/21/2017 Results for this 3:00 AM CDT procedure are in the results section. MAGNESIUM Routine 11/21/2017 Results for this 3:00 AM CDT procedure are in the results section. CBC AND DIFF Routine 11/21/2017 Results for this 3:00 AM CDT procedure are in the results section. BASIC METABOLIC PANEL Routine 11/21/2017 Results for this 3:00 AM CDT procedure are in the results section. MRI HEAD WO CONTRAST Routine 11/20/2017 Results for this 7:08 PM CDT procedure are in the results section. POTASSIUM Routine 11/20/2017 Results for this 3:53 PM CDT procedure are in the results section. MAGNESIUM Routine 11/20/2017 Results for this 3:53 PM CDT procedure are in the results section. PHOSPHORUS Routine 11/20/2017 Results for this 3:53 PM CDT procedure are in the results section. CONSULT IV THERAPY TEAM Routine 11/20/2017 4:32 AM CDT CULTURE-BLOOD Routine 11/20/2017 Results for this W/SENSITIVITY 3:14 AM CDT procedure are in the results section. PHENCYCLIDINES-URINE Routine 11/20/2017 Results for this RANDOM 2:56 AM CDT procedure are in the results section. OPIATES-URINE RANDOM Routine 11/20/2017 Results for this 2:56 AM CDT procedure are in the results section. COCAINE-URINE RANDOM Routine 11/20/2017 Results for this 2:56 AM CDT procedure are in the results section. CANNABINOIDS-URINE RANDOM Routine 11/20/2017 Results for this 2:56 AM CDT procedure are in the results section. BENZODIAZEPINES-URINE Routine 11/20/2017 Results for this RANDOM 2:56 AM CDT procedure are in the results section. BARBITURATES-URINE RANDOM Routine 11/20/2017 Results for this 2:56 AM CDT procedure are in the results section. AMPHETAMINES-URINE RANDOM Routine 11/20/2017 Results for this 2:56 AM CDT procedure are in the results section. BETA-HCG Add on 11/20/2017 Results for this 2:30 AM CDT procedure are in the results section. PROTIME INR (PT) Routine 11/20/2017 Results for this 2:30 AM CDT procedure are in the results section. COMPREHENSIVE METABOLIC Routine 11/20/2017 Results for this PANEL 2:30 AM CDT procedure are in the results section. CBC AND DIFF Routine 11/20/2017 Results for this 2:30 AM CDT procedure are in the results section. HEMOGLOBIN A1C Routine 11/20/2017 Results for this 2:30 AM CDT procedure are in the results section. LIPID PROFILE Routine 11/20/2017 Results for this 2:30 AM CDT procedure are in the results section. GENERAL RAD CHEST Routine 11/19/2017 Diagnosis unknown Results for this EXTERNAL IMAGING 12:30 AM CDT procedure are in the results section. CTA HEAD EXTERNAL IMAGING Routine 11/19/2017 Diagnosis unknown Results for this 12:15 AM CDT procedure are in the results section. CT HEAD EXTERNAL IMAGING Routine 11/19/2017 Diagnosis unknown Results for this 12:00 AM CDT procedure are in the results section. from Last 3 Months Results * PHOSPHORUS (11/22/2017 3:57 AM) Only the most recent of 3 results within the time period is included. Phosphorus 3.4 2.0 - 4.0 MG/DL [facility] Specimen Blood Performing Organization Address City/State/Zipcode Phone Number [facility] [address] [place] [address] * BASIC METABOLIC PANEL (11/22/2017 3:57 AM) Only the most recent of 2 results within the time period is included. Sodium 133 (L) 137 - 147 MMOL/L [facility] Potassium 4.1 3.5 - 5.1 MMOL/L [facility] Chloride 109 98 - 110 MMOL/L [facility] CO2 20 (L) 21 - 30 MMOL/L [facility] Anion Gap 4 3 - 12 [facility] Glucose 91 70 - 100 MG/DL [facility] Blood Urea Nitrogen 11 7 - 25 MG/DL [facility] Creatinine 0.48 0.4 - 1.00 MG/DL [facility] Calcium 8.7 8.5 - 10.6 MG/DL [facility] eGFR Non >60 >60 mL/min [facility] Comment: The eGFR is not validated for use in drug dosing adjustments.Continue to use estimated creatinine clearance per dosing reference text.Please contact the Clinical Pharmacist for questions. eGFR >60 >60 mL/min [facility] Comment: The eGFR is not validated for use in drug dosing adjustments.Continue to use estimated creatinine clearance per dosing reference text.Please contact the Clinical Pharmacist for questions. Specimen Blood Performing Organization Address City/State/Zipcode Phone Number MAIN LAB [address] [place] [address] * 2-D + DOPPLER ECHOCARDIOGRAM (11/21/2017 10:01 AM) IVS 0.87 0.6 - 0.9 cm OTHER OUTSIDE LAB LVIDD 3.84 3.8 - 5.2 cm OTHER [facility] LAB LVIDS 2.31 2.2 - 3.5 cm OTHER [facility] PW 0.91 0.6 - 0.9 cm OTHER [facility] LAB TDI e' 0.15 m/s OTHER [facility] LA size 2.96 2.7 - 3.8 cm OTHER [facility] LA volume 47.39 22 - 52 mL OTHER [facility] and a peak gradient of 7.74 mmHg OTHER [facility] AV peak velocity 1.39 m/s OTHER [facility] MV Peak A Jeff 0.59 m/s OTHER [facility] LAB MV Peak E Jeff PW 0.88 m/s OTHER [facility] LAB Right Heart Systolic 1.85 >1.7 cm OTHER OUTSIDE LAB Mmode TAPSE Sinus 2.95 2.7 - 3.3 cm OTHER OUTS[facility] LAB BSA 2.09 m2 OTHER [facility] FS 39.84 28 - 44 % OTHER [facility] EF 67.73 % OTHER [facility] LAB Left Atrium Index 22.67 16 - 34 OTHER [facility] E/A ratio 1.49 OTHER [facility] E/E' ratio 5.87 [facility] Referring Provider Gail Larson OTHER OUTSIDE LAB CV ECHO PV TIMBER INCISOR OPERATOR HELEN Alarcon-[id number] Bubbles OTHER OUTSIDE LAB LV mass 101.17 66 - 150 g OTHER [facility] RWT 0.47 <=0.42 OTHER [facility] LAB TV rest pulmonary artery 23 mmHg OTHER OUTSIDE LAB pressure Right Heart Systolic TDI 0.120 m/s OTHER OUTSIDE LAB S' Cardiology Ultrasound Siemens [id number] OTHER OUTSIDE LAB Machine Left Ventricle Mass Index 48.41 44 - 88 g/m2 OTHER OUTSIDE LAB ECHO EF 55 % OTHER OUTSIDE LAB Narrative Performed At OTHER OUTSIDE LAB 1. Normal left ventricular systolic function with an EF of 55% 2. No regional wall motion abnormalities 3. Normal left ventricular diastolic function 4. Normal right ventricular size and qualitative function 5. Normal sized atria bilaterally 6. No significant valvular disease identified 7. Estimated peak systolic PA pressure=23 mmHg 8. No pericardial effusion 9. There is no evidence of intracardiac shunt with agitated saline study. There is no prior study available for comparison. Performing Organization Address City/[facility] Phone Number OTHER [facility] * IONIZED CALCIUM (11/21/2017 3:30 AM) Ionized Calcium 1.08 1.0 - 1.3 MMOL/L [facility] Specimen Blood Performing Organization Address [facility] Phone Number [facility] [address] [place] [address] * CBC AND DIFF (11/21/2017 3:00 AM) Only the most recent of 2 results within the time period is included. White Blood Cells 7.8 4.5 - 11.0 K/UL [facility] RBC 4.12 4.0 - 5.0 M/UL [facility] Hemoglobin 10.4 (L) 12.0 - 15.0 GM/DL [facility] Hematocrit 33.2 (L) 36 - 45 % [facility] MCV 80.7 80 - 100 FL [facility] MCH 25.3 (L) 26 - 34 PG [facility] MCHC 31.3 (L) 32.0 - 36.0 G/DL [facility] RDW 18.2 (H) 11 - 15 % [facility] Platelet Count 329 150 - 400 K/UL [facility] MPV 7.7 7 - 11 FL [facility] Neutrophils 46 41 - 77 % [facility] Lymphocytes 45 (H) 24 - 44 % [facility] Monocytes 6 4 - 12 % [facility] Eosinophils 3 0 - 5 % [facility] Basophils 0 0 - 2 % [facility] Absolute Neutrophil Count 3.60 1.8 - 7.0 K/UL [facility] Absolute Lymph Count 3.50 1.0 - 4.8 K/UL [facility] Absolute Monocyte Count 0.40 0 - 0.80 K/UL [facility] Absolute Eosinophil Count 0.20 0 - 0.45 K/UL [facility] Absolute Basophil Count 0.00 0 - 0.20 K/UL [facility] Specimen Blood Performing Organization Address [facility] Phone Number MA[facility] [address] [place] [address] * MAGNESIUM (11/21/2017 3:00 AM) Only the most recent of 2 results within the time period is included. Magnesium 2.4 1.6 - 2.6 mg/dL [facility] Specimen Blood Performing Organization Address City/State/Zipcode Phone Number MAIN LAB [address] [place] [address] * MRI HEAD WO CONTRAST (11/20/2017 7:08 PM) Impressions Performed At Normal MRI of the brain without evidence of acute or recent infarct. [facility] RESULTS Approved by Emeli Burgess M.D. on 11/21/2017 8:27 AM By my electronic signature, I attest that I have personally reviewed the images for this examination and formulated the interpretations and opinions expressed in this report Finalized by Rohit Negrete M.D. on 11/21/2017 9:38 AM. Dictated by Emeli Burgess M.D. on 11/21/2017 7:23 AM. Narrative Performed At MRI BRAIN [facility] RESULTS HISTORY: 32-year-old female, Stroke within 24 hours, left-sided weakness and sensory deficit, migraines TECHNIQUE: Multiplanar and multisequence MR imaging of the head was performed without the use of IV contrast. COMPARISON: None FINDINGS: The ventricles and subarachnoid spaces are normal in size and configuration. Brain parenchyma is normal in signal. There is no midline shift or mass effect. The vascular flow-voids are unremarkable. Diffusion weighted imaging is not indicative of acute or recent infarct. Procedure Note Interface, Radiant Results - 11/21/2017 9:41 AM CDT MRI BRAIN HISTORY: 32-year-old female, Stroke within 24 hours, left-sided weakness and sensory deficit, migraines TECHNIQUE: Multiplanar and multisequence MR imaging of the head was performed without the use of IV contrast. COMPARISON: None FINDINGS: The ventricles and subarachnoid spaces are normal in size and configuration. Brain parenchyma is normal in signal. There is no midline shift or mass effect. The vascular flow-voids are unremarkable. Diffusion weighted imaging is not indicative of acute or recent infarct. IMPRESSION Normal MRI of the brain without evidence of acute or recent infarct. Approved by Emeli Burgess M.D. on 11/21/2017 8:27 AM By my electronic signature, I attest that I have personally reviewed the images for this examination and formulated the interpretations and opinions expressed in this report Finalized by Rohit Negrete M.D. on 11/21/2017 9:38 AM. Dictated by Emeli Burgess M.D. on 11/21/2017 7:23 AM. Performing Organization Address [facility] Phone Number RAD RESULTS * POTASSIUM (11/20/2017 3:53 PM) Potassium 4.4 3.5 - 5.1 MMOL/L MAIN LAB Specimen Blood Performing Organization Address [facility] Phone Number MAIN LAB [address] [place] [address] * CULTURE-BLOOD W/SENSITIVITY (11/20/2017 3:14 AM) Battery Name BLOOD CULTURE MAIN LAB Specimen Description BLOOD MAIN LAB RIGHT Art Special Requests NONE MAIN LAB Culture NO GROWTH 5 DAYS MAIN LAB Report Status FINAL MAIN LAB 11/26/2017 Specimen Blood Performing Organization Address [facility] Phone Number MAIN LAB [address] [place] [address] * PHENCYCLIDINES-URINE RANDOM (11/20/2017 2:56 AM) Phencyclidine (PCP) NEG NEG-NEG MAIN LAB Comment: RESULTS WERE OBTAINED BY IMMUNOASSAY AND ARE PRESUMPTIVE ONLY. POSITIVE INDICATES THE PRESENCE OF SUBSTANCE WITH CHARACTERISTICS SIMILAR TO DRUG-DRUG CLASS OR METABOLITE IN CONC. EQUAL TO OR EXCEEDING VALUES LISTED. PHENCYCLIDINE (PCP)25 NG/ML Specimen Urine - Urine Performing Organization Address [facility] Phone Number MAIN LAB [address] [place] [address] * OPIATES-URINE RANDOM (11/20/2017 2:56 AM) Opiates-Urine NEG NEG-NEG MAIN LAB Comment: RESULTS WERE OBTAINED BY IMMUNOASSAY AND ARE PRESUMPTIVE ONLY. POSITIVE INDICATES THE PRESENCE OF SUBSTANCE WITH CHARACTERISTICS SIMILAR TO DRUG-DRUG CLASS OR METABOLITE IN CONC. EQUAL TO OR EXCEEDING VALUES LISTED. OPIATES 2000 NG/ML Specimen Urine - Urine Performing Organization Address [facility] Phone Number MAIN LAB [address] [place] [address] * COCAINE-URINE RANDOM (11/20/2017 2:56 AM) Cocaine-Urine NEG NEG-NEG MAIN LAB Comment: RESULTS WERE OBTAINED BY IMMUNOASSAY AND ARE PRESUMPTIVE ONLY. POSITIVE INDICATES THE PRESENCE OF SUBSTANCE WITH CHARACTERISTICS SIMILAR TO DRUG-DRUG CLASS OR METABOLITE IN CONC. EQUAL TO OR EXCEEDING VALUES LISTED. COCAINE 300 NG/ML Specimen Urine - Urine Performing Organization Address [facility] Phone Number MAIN LAB [address] [place] [address] * CANNABINOIDS-URINE RANDOM (11/20/2017 2:56 AM) THC NEG NEG-NEG MAIN LAB Comment: RESULTS WERE OBTAINED BY IMMUNOASSAY AND ARE PRESUMPTIVE ONLY. POSITIVE INDICATES THE PRESENCE OF SUBSTANCE WITH CHARACTERISTICS SIMILAR TO DRUG-DRUG CLASS OR METABOLITE IN CONC. EQUAL TO OR EXCEEDING VALUES LISTED. CANNABINOIDS 50 NG/ML Specimen Urine - Urine Performing Organization Address [facility] Phone Number MAIN LAB [address] [place] [address] * BENZODIAZEPINES-URINE RANDOM (11/20/2017 2:56 AM) Benzodiazepines NEG NEG-NEG MAIN LAB Comment: RESULTS WERE OBTAINED BY IMMUNOASSAY AND ARE PRESUMPTIVE ONLY. POSITIVE INDICATES THE PRESENCE OF SUBSTANCE WITH CHARACTERISTICS SIMILAR TO DRUG-DRUG CLASS OR METABOLITE IN CONC. EQUAL TO OR EXCEEDING VALUES LISTED. BENZODIAZEPINES 200 NG/ML Specimen Urine - Urine Performing Organization [facility] Phone Number MAIN LAB [address] [place] [address] * BARBITURATES-URINE RANDOM (11/20/2017 2:56 AM) Barbiturates,Urine NEG NEG-NEG MAIN LAB Comment: RESULTS WERE OBTAINED BY IMMUNOASSAY AND ARE PRESUMPTIVE ONLY. POSITIVE INDICATES THE PRESENCE OF SUBSTANCE WITH CHARACTERISTICS SIMILAR TO DRUG-DRUG CLASS OR METABOLITE IN CONC. EQUAL TO OR EXCEEDING VALUES LISTED. BARBITURATES 200 NG/ML Specimen Urine - Urine Performing Organization Address [facility] Phone Number MAIN LAB [address] [place] [address] * AMPHETAMINES-URINE RANDOM (11/20/2017 2:56 AM) Amphetamines NEG NEG-NEG MAIN LAB Comment: RESULTS WERE OBTAINED BY IMMUNOASSAY AND ARE PRESUMPTIVE ONLY. POSITIVE INDICATES THE PRESENCE OF SUBSTANCE WITH CHARACTERISTICS SIMILAR TO DRUG-DRUG CLASS OR METABOLITE IN CONC. EQUAL TO OR EXCEEDING VALUES LISTED. AMPHETAMINES 1000 NG/ML Specimen Urine - Urine Performing Organization Address [facility] Phone Number MAIN LAB [address] [place] [address] * PROTIME INR (PT) (11/20/2017 2:30 AM) INR 1.1 0.8 - 1.2 [facility] Specimen Blood Performing Organization Address [facility] Phone Number [facility] [address] [place] [address] * BETA-HCG (11/20/2017 2:30 AM) Beta-HCG,Serum <1 <5 U/L [facility] Performing Organization Address [facility] Phone Number [facility] [address] [place] [phone] * HEMOGLOBIN A1C (11/20/2017 2:30 AM) Hemoglobin A1C 5.6 4.0 - 6.0 % [facility] Comment: The ADA recommends that most patients with type 1 and type 2 diabetes maintain an A1c level <7%. Specimen Blood Performing Organization Address [facility] Phone Number [facility] [address] [place] [address] * LIPID PROFILE (11/20/2017 2:30 AM) Cholesterol 118 <200 MG/DL [facility] Triglycerides 92 <150 MG/DL [facility] HDL 39 (L) >40 MG/DL [facility] LDL 71 <100 MG/DL [facility] VLDL 18 MG/DL [facility] Non HDL Cholesterol 79 MG/DL [facility] Comment: Calculated non-HDL Cholesterol (non-HDL-C) indirectly measures LDL-C, Lp(a), IDL-C, and VLDL-C.It is a surrogate marker for Apoprotein B.Goal should be less than 130 mg/dL. Specimen Blood Performing Organization Address [facility] Phone Number [facility] [address] [place] [phone] * COMPREHENSIVE METABOLIC PANEL (11/20/2017 2:30 AM) Sodium 137 137 - 147 MMOL/L [facility] Potassium 3.7 3.5 - 5.1 MMOL/L [facility] Chloride 107 98 - 110 MMOL/L [facility] Glucose 87 70 - 100 MG/DL [facility] Blood Urea Nitrogen 7 7 - 25 MG/DL [facility] Creatinine 0.66 0.4 - 1.00 MG/DL [facility] Calcium 9.1 8.5 - 10.6 MG/DL [facility] Total Protein 7.0 6.0 - 8.0 G/DL [facility] Total Bilirubin 0.4 0.3 - 1.2 MG/DL [facility] Albumin 4.0 3.5 - 5.0 G/DL [facility] Alk Phosphatase 40 25 - 110 U/L [facility] AST (SGOT) 15 7 - 40 U/L [facility] CO2 24 21 - 30 MMOL/L [facility] ALT (SGPT) 11 7 - 56 U/L [facility] Anion Gap 6 3 - 12 [facility] eGFR Non >60 >60 mL/min [facility] Comment: The eGFR is not validated for use in drug dosing adjustments.Continue to use estimated creatinine clearance per dosing reference text.Please contact the Clinical Pharmacist for questions. eGFR >60 >60 mL/min [facility] Comment: The eGFR is not validated for use in drug dosing adjustments.Continue to use estimated creatinine clearance per dosing reference text.Please contact the Clinical Pharmacist for questions. Specimen Blood Performing Organization Address City/State/Zipcode Phone Number MAIN LAB [address] [place] [address] * GENERAL RAD CHEST EXTERNAL IMAGING (11/19/2017 12:30 AM) Narrative Performed At This order has been auto finalized and does not contain a result. * CTA HEAD EXTERNAL IMAGING (11/19/2017 12:15 AM) Narrative Performed At This order has been auto finalized and does not contain a result. * CT HEAD EXTERNAL IMAGING (11/19/2017) Narrative Performed At This order has been auto finalized and does not contain a result. from Last 3 Months
--- OUTSIDE RECORDS SUMMARY | 2018-01-17 13:21 | XMS REPORT | Encounter Summary ---
Author Author [facility] Organization [facility] Address Unknown Phone Unavailable Care Team Providers Care Frit Burner Name Role Phone Gail Larson MD PCP Encounter Details Date Type Department Care Team Description 11/24/2017 Ancillary Rad Outpatient, Radiologist Diagnosis unknown Orders [address] [place] [address] Social History Tobacco Use Types Packs/Day Years Used Date Current Every Day Smoker Cigarettes Smokeless Tobacco: Never Used Alcohol Use Drinks/Week oz/Week Comments Yes Sex Assigned at Date Recorded Not on file as of this encounter Functional Status Functional Status Response Date of Assessment Does the patient have a hearing impairment: No 11/22/2017 Does the patient have a visual impairment: No 11/22/2017 Does the patient have impaired ambulation: Yes 11/22/2017 Does the patient have an activity of daily living No 11/22/2017 (ADL) impairment: Does the patient have an instrumental activity of No 11/22/2017 daily living (IADL) impairment: Cognitive Status Response Date of Assessment Does the patient have a cognitive impairment: No 11/22/2017 as of this encounter Plan of Treatment Not on fileas of this encounter Results * GENERAL RAD CHEST EXTERNAL IMAGING (11/19/2017 [...] finalized and does not contain a result. in this encounter Visit Diagnoses Diagnosis Diagnosis unknown Other unknown and unspecified cause of morbidity or mortality
--- OUTSIDE RECORDS SUMMARY | 2018-01-17 13:21 | XMS REPORT | Encounter Summary ---
Author Author [facility] Organization [facility] Address Unknown Phone Unavailable Care Team Providers Care Supervisor [employer] Name Role Phone Gail Larson MD PCP Reason for Visit * Reason Comments Medication Question Encounter Details Date Type Department Care Team Description 11/23/2017 Telephone [facility] Tangela Weber MD Medication Question Physicians-Neurology [address] [facility] [place] [address] [address] [facility] [phone] [place] [address] Social History Tobacco Use Types Packs/Day Years [...] impairment: No 11/22/2017 as of this encounter Miscellaneous Notes * Telephone Encounter - Tangela Weber MD - 11/23/2017 2:19 PM CDT Medrol Dose Garry and Zofran PRN for her acute on chronic migraines ordered and sent to her pharmacy. * Telephone Encounter - Yanci Quiles RN - 11/23/2017 11:18 AM CDT Pt called stating she was discharged yesterday from the hospital. She stated they told her she would be discharged with a medrol pack and zofran. This is noted in the last note but never ordered. Dr. Weber please advise. in this encounter Plan of Treatment Not on fileas of this encounter Visit Diagnoses Not on filein this encounter
--- OUTSIDE RECORDS SUMMARY | 2018-01-17 13:22 | XMS REPORT | Encounter Summary ---
Author Author [facility] Organization [facility] Address Unknown Phone Unavailable Care Team Providers Care Road Mixer Operator Name Role Phone Gail Larson MD PCP Encounter Details Date Type Department Care Team Description 11/19/2017 Hospital [facility] [address] [place] [address] Social History Tobacco Use Types Packs/Day Years Used Date Never Assessed Sex Assigned at Date Recorded Not on file as of this encounter Medications at Time of Discharge Medication Sig. Disp. Refills Start Date End Date amitriptyline (ELAVIL) 25 Take one tablet by mouth 90 tablet 3 2017 mg tablet at bedtime daily. gabapentin (NEURONTIN) Take 300 mg by mouth 300 mg capsule twice daily. lurasidone 60 mg tab Take 1 tablet by mouth daily. metoprolol tartrate Take 50 mg by mouth twice (LOPRESSOR) 50 mg tablet daily. naproxen (NAPROSYN) 500 Take one tablet by mouth 60 tablet 0 2017 mg tablet twice daily with meals. Take with food. aspirin EC 81 mg tablet Take 81 mg by mouth 11/22/2017 daily. Take with food. as of this encounter Plan of Treatment Not on fileas of this encounter Procedures Procedure Name Priority Date/Time Associated Diagnosis Comments GENERAL RAD CHEST Routine 11/19/2017 Diagnosis unknown Results for this EXTERNAL IMAGING 12:30 AM CDT procedure are in the results section. in this encounter Results * GENERAL RAD CHEST EXTERNAL IMAGING (11/19/2017 12:30 AM) Narrative Performed At This order has been auto finalized and does not contain a result. in this encounter Visit Diagnoses Diagnosis Diagnosis unknown Other unknown and unspecified cause of morbidity or mortality
--- OUTSIDE RECORDS SUMMARY | 2018-01-17 13:22 | XMS REPORT | Encounter Summary ---
Author Author [facility] Organization [facility] Address Unknown Phone Unavailable Care Team Providers Care Engineer Of System Development Name Role Phone Gail Larson MD PCP Encounter Details Date Type Department Care Team Description 11/19/2017 Hospital [facility] Radiology [facility] [address] [place] [address] Social History Tobacco Use Types Packs/Day Years [...] Procedure Name Priority Date/Time Associated Diagnosis Comments CT HEAD EXTERNAL IMAGING Routine 11/19/2017 Diagnosis unknown Results for this 12:00 AM CDT procedure are in the results section. in this encounter Results * CT HEAD EXTERNAL IMAGING (11/19/2017) Narrative Performed At This order has been auto finalized and does not contain a result. in this encounter Visit Diagnoses Diagnosis Diagnosis unknown Other unknown and unspecified cause of morbidity or mortality
--- OUTSIDE RECORDS SUMMARY | 2018-01-17 13:22 | XMS REPORT | Encounter Summary ---
Author Author [facility] Organization [facility] Address Unknown Phone Unavailable Care Team Providers Care Fund Accountant Name Role Phone Gail Larson MD PCP Encounter Details Date Type Department Care Team Description 11/19/2017 Hospital [facility] Radiology [facility] [address] [place] [address] Social History Tobacco Use Types Packs/Day Years [...] Procedure Name Priority Date/Time Associated Diagnosis Comments CTA HEAD EXTERNAL IMAGING Routine 11/19/2017 Diagnosis unknown Results for this 12:15 AM CDT procedure are in the results section. in this encounter Results * CTA HEAD EXTERNAL IMAGING (11/19/2017 12:15 AM) Narrative Performed At This order has been auto finalized and does not contain a result. in this encounter Visit Diagnoses Diagnosis Diagnosis unknown Other unknown and unspecified cause of morbidity or mortality
--- OUTSIDE RECORDS SUMMARY | 2018-01-17 13:22 | XMS REPORT | Encounter Summary ---
Author Author [facility] Organization 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 Name Role Phone Gail Larson MD PCP Reason for Referral * Consult, Test & Treat Status Reason Specialty Diagnoses / Referred By Referred To Procedures Contact Contact No Auth Needed Specialty Diagnoses Sophie Webster Hemiplegic MD Tangela Required migraine without [address] migrainosus, not [place], [place] intractable [id number] Reason for Visit * Auth/Cert Status Reason Specialty Diagnoses / Referred By Referred To Procedures Contact Contact Diagnoses stroke Stroke (HCC) Encounter Details Date Type Department Care Team Description 11/20/2017 Hospital CA5 ICU Donnie Ro MD PFO (patent foramen - Encounter [address] ovale) 11/22/2017 [place] [address] [place] [address] [phone] Alicia Quan MD [address] [place] [address] [phone] Tangela Rodríguez MD [address] [place] [address] [phone] Social History Tobacco Use Types Packs/Day Years Used Date Current Every Day Smoker Cigarettes Smokeless Tobacco: Never Used Tobacco Cessation: Ready to Quit: Yes; Counseling Given: No Alcohol Use Drinks/Week oz/Week Comments Yes Sex Assigned at Date Recorded Not on file as of this encounter Last Filed Vital Signs Vital Sign Reading [...] Mass Index 42.57 11/22/2017 7:27 AM CDT in this encounter Functional Status Functional Status Response [...] impairment: No 11/22/2017 as of this encounter Discharge Summaries * Tangela Webster MD - 11/22/2017 2:09 PM CDT Formatting of this note may be different from the original. Physician Discharge Summary Name: Kaya Brunner Date Of : 1985 Age: 32 years Admit date: 11/20/2017 Discharge date: 11/22/2017 Attending Physician: Dr. Tangela Webster Service: Neurology Physician Summary completed by: Aniceto Chinchilla MD Reason for hospitalization: Post TPA management Significant PMH: Past Medical History: Diagnosis Date Anemia Bipolar affective disorder ([facility]) Compartment syndrome of right lower extremity ([facility]) 2014 after DVT CVA (cerebral vascular accident) ([facility]) 2003 Disassociation disorder DVT (deep venous thrombosis) ([facility]) 2014 with broken bone Foot drop, right 2015 Migraine PFO (patent foramen ovale) Seizure ([facility]) 2003 associated with her cva at the time, not on medication and has not had another Stroke-like symptom Allergies: Latex; Sulfa (sulfonamide antibiotics); and Penicillins Admission Physical Exam notable for: 2/5 strength in the right lower and left lower extremities as well as left upper extremity and left hemianesthesia Brief Hospital Course: The patient was admitted and the following issues were addressed during this hospitalization: (with pertinent details). 32 y.o.femalewith past medical history of Broken R leg with subsequent DVT s /p IVC filter and on and off xarelto in the past, PFO, migraine (hemiplegic- states difficult walking/ L leg weakness with headaches), bipolar and dissociation disorder, transferred from [facility], after receiving tPA for LUE & LLE weakness associated with headache.MRI neg for acute or chronic stroke, aspirin 81mg was initially started but later discontinued. CTA was reviewed and not suggestive of vasculitis. Patient's gabapentin was increased from 300 twice daily to 300 3 times daily with magnesium supplement added. Patient was transferred to the floor on 11/21. Left -sided weakness subsided and patient was discharged with both preventative and abortive medications for migraine with plan for follow-up with neurologist in [place]. 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 Condition at Discharge: Stable Discharge Diagnoses: Complicated Migraine Morbid Obesity BMI > 40 History of PFO History of DVT Hospital Problems Active Problems PFO (patent foramen ovale) Migraine Foot drop, right DVT (deep venous thrombosis) (HCC) Disassociation disorder Bipolar affective disorder (HCC) Stroke-like symptom Surgical Procedures: None Significant Diagnostic Studies and Procedures: noted in brief hospital course Consults: None Patient Disposition: Home Patient instructions/medications: AMB REFERRAL TO NEUROLOGY Referral Type: Consult, Test & Treat Referral Reason: Specialty Services Required Number of Visits Requested: 1 Expiration Date: 11/22/18 Activity as Tolerated It is important to keep increasing your activity level after you leave the hospital. Moving around can help prevent blood clots, lung infection (pneumonia ) and other problems. Gradually increasing the number of times you are up moving around will help you return to your normal activity level more quickly. Continue to increase the number of times you are up to the chair and walking daily to return to your normal activity level. Begin to work toward your normal activity level at discharge Report These Signs and Symptoms Please contact your doctor if you have any of the following symptoms: temperature higher than 100 degrees F, persistent nausea and/or vomiting, difficulty breathing or weakness or numbness on one side greater than the other. Questions About Your Stay For questions or concerns regarding your hospital stay. Call [phone] Discharging attending physician: TANGELA WEBSTER [[id number]] Regular Diet You have no dietary restriction. Please continue with a healthy balanced diet. Current Discharge Medication List START taking these medications Details amitriptyline (ELAVIL) 25 mg tablet Take one tablet by mouth at bedtime daily. Qty: 90 tablet, Refills: 3 PRESCRIPTION TYPE: Normal naproxen (NAPROSYN) 500 mg tablet Take one tablet by mouth twice daily with meals. Take with food. Qty: 60 tablet, Refills: 0 PRESCRIPTION TYPE: Normal Comments: Patient is not take more then 10 doses in a one month period to avoid medication overuse headache. CONTINUE these medications which have NOT CHANGED Details gabapentin (NEURONTIN) 300 mg capsule Take 300 mg by mouth twice daily. PRESCRIPTION TYPE: Historical Med lurasidone 60 mg tab Take 1 tablet by mouth daily. PRESCRIPTION TYPE: Historical Med metoprolol tartrate (LOPRESSOR) 50 mg tablet Take 50 mg by mouth twice daily. PRESCRIPTION TYPE: Historical Med The following medications were removed from your list. This list includes medications discontinued this stay and those removed from your prior med list in our system aspirin EC 81 mg tablet Scheduled appointments: Follow up with Neurologist as an outpatient. Will provide referral. Pending items needing follow up: none Signed: Aniceto Chinchilla MD 11/24/2017 cc: Primary Care Physician: Gail Larson Verified Referring physicians: Donnie Ro MD Additional provider(s): in this encounter Discharge Instructions * Discharge Instr - Appointments - Aniceto Chinchilla MD - 11/22/2017 12:38 PM CDT Follow up with Neurologist as an outpatient. Will provide referral. in this encounter Medications at Time of Discharge [...] twice daily with meals. Take with food. as of this encounter Progress Notes * Aniceto Chinchilla MD - 11/22/2017 2:09 PM CDT Formatting of this note may be different from the original. Neurology Progress Note Name: Kaya Alvares Admission Date: 11/20/2017 LOS: 2 days [id number] ASSESSMENT: Active Problems: PFO (patent foramen ovale) Migraine Foot drop, right DVT (deep venous thrombosis) ([facility]) Disassociation disorder Bipolar affective disorder ([facility]) Stroke-like symptom 32 y.o.femalewith history of possible stroke (does not remember details) 2003, Broken R leg, DVT s/p IVC filter and on and off xarelto in the past, PFO, migraine (hemiplegic- states difficult walking/ L leg weakness with headaches), bipolar and dissociation disorder, transferred from [facility], after receiving tPA for LUE & LLE weakness and numbness associated with headache.MRI neg for stroke, aspirin 81mg discontinued. CTA not suggestive of vasculitis. Hospital and ICU course: 11/20: [facility] post TPA 11/21: MRI neg for stroke 11/22 Discharge home with migraine medication and follow up with neurology Migraine with associated LUE/ LLE weakness and numbness H/o Bipolar and dissociation disorder PFO DVT s/p IVF filter, on and off xarelto in the past - S/p TPA at [facility]SH - MRI head wo- no acute infarct - CTA when reviewed at - not suggestive of vasculitis or vasospasm - Echo unremarkable - increase gabapentin from 300 bid to 300tid to help with migraine ppx, add mag for ppx - for abortive, can take naproxen 500 mg BID, instructed not to exceed 10 doses in a 1 month period to avoid medication rebound. - Will discharge with amitriptyline 25 mg QHS and follow up with neurology as an outpatient - Zofran for nausea FEN - IVF: none Replace lytes Dispo: Discharge home today Patient seen and plan of care discussed with Dr. Tia Chinchilla Neurology PGY2 Pager: [phone] __ Subjective: Patient reports complete resolution in left sided weakness. No new neuro deficits reported. No major events overnight. Patient does note a continuous headache but it is mild. Past Medical History: Diagnosis Date Anemia Bipolar affective disorder ([facility]) Compartment syndrome of right lower extremity ([facility]) 2014 after DVT CVA (cerebral vascular accident) ([facility]) 2003 Disassociation disorder DVT (deep venous thrombosis) ([facility]) 2014 with broken bone Foot drop, right 2015 Migraine PFO (patent foramen ovale) Seizure ([facility]) 2003 associated with her cva at the time, not on medication and has not had another Stroke-like symptom Past Surgical History: Procedure Laterality Date FASCIOTOMY Right 2014 right leg VENA CAVA FILTER PLACEMENT 2014 Social History Social History Marital status: Single Spouse name: N/A Number of children: N/A Years of education: N/A Social History Main Topics Smoking status: Current Every Day Smoker Types: Cigarettes Smokeless tobacco: Never Used Alcohol use Yes Drug use: No Sexual activity: Not on file Other Topics Concern Not on file Social History Narrative 11/20/17 Lives with her 11 yo son and 10 yo daughter. 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 States that she wants her decision maker to be [facility] [phone] - close personal friend. Amy Quinones APRN No family history on file. Immunizations (includes history and patient reported): There is no immunization history on file for this patient. Allergies: Latex; Sulfa (sulfonamide antibiotics); and Penicillins Medications: No prescriptions prior to admission. No current facility-administered medications on file prior to encounter. No current outpatient prescriptions on file prior to encounter. Review of Systems: Constitutional: negative Eyes: negative Ears, nose, mouth, throat, and face: negative Respiratory: negative Cardiovascular: negative Gastrointestinal: negative Genitourinary: negative Integument/breast: negative Hematologic/lymphatic: negative Musculoskeletal: negative Neurological: negative Behavioral/Psych: negative Endocrine: negative Allergic/Immunologic: negative Physical Exam: Vital Signs: Last Filed In 24 Hours Vital Signs: 24 Hour Range BP: 110/54 (11/22 1200) Temp: 36.7 C (98.1 F) (08/14 1200) Pulse: 78 (11/23 1199) Respirations: 16 PER MINUTE (11/23 1199) SpO2: 98 % (11/23 1199) O2 Delivery: None (Room Air) (11/23 1199) BP: (98-115)/(54-73) Temp: [36.5 C (97.7 F)-37.2 C (98.9 F)] Pulse: [60-78] Respirations: [12 PER MINUTE-18 PER MINUTE] SpO2: [97 %-99 %] O2 Delivery: None (Room Air) Intensity Pain Scale 0-10 (Pain 1): 3 (11/22/17 1200) HEENT: normocephalic, eyes open with no discharge, nares patent, oropharynx is clear with no lesions, palate intact Chest: normal configuration, non labored breathing, chest rise equal b/l Abd: soft, non- tender, no masses, no organomegaly Skin: no rashes or lesions Psych: normal Neuro: Mental status: Oriented to person/place/time/situation Memory: Recent and remote memory intact Attention: Good span, follows conversation. Fund of knowledge: Appropriate Level of consciousness: Alert Speech: Fluency: Normal Comprehension: Normal Articulation: Normal CN II-XII: Visual kahn intact in all kahn, PERRL, EOMI, facial sensation intact. Symmetrical facial movement. Hearing grossly intact to conversation. elevates palate b/l, uvula midline. Strong shoulder shrug. Tongue midline. Motor: Normal tone and bulk. No abnormal movement, fasciculation or pronator drift. NF5 NE5 SA EF EE WE WF FF FE FA TA HF BERRIOS HE KF KE DF PF In Ev TF TE R 5 5 5 5 5 5 5 4- 5 5 0 0 L 5 5 5 5 5 5 5 4 5 5 5 5 Sensory: Light touch: intact, without sensory level Reflexes: No clonus, hermelindo, cross adductor. Babinski absent. Right Left Triceps Biceps 2 2 Brachioradialis 2 2 Patella 1 1 Ankle 1 1 Cerebellar Funciton/fine movement: normal finger to nose, heel to prince, finger tapping Gait: deferred Lab/Radiology/Other Diagnostic Tests: 24-hour labs: Results for orders placed or performed during the hospital encounter of (from the past 24 hour(s)) BASIC METABOLIC PANEL Collection Time: 11/22/17 3:57 AM Result Value Ref Range Sodium 133 (L) 137 - 147 MMOL/L Potassium 4.1 3.5 - 5.1 MMOL/L Chloride 109 98 - 110 MMOL/L CO2 20 (L) 21 - 30 MMOL/L Anion Gap 4 3 - 12 Glucose 91 70 - 100 MG/DL Blood Urea Nitrogen 11 7 - 25 MG/DL Creatinine 0.48 0.4 - 1.00 MG/DL Calcium 8.7 8.5 - 10.6 MG/DL eGFR Non >60 >60 mL/min eGFR >60 >60 mL/min PHOSPHORUS Collection Time: 11/22/17 3:57 AM Result Value Ref Range Phosphorus 3.4 2.0 - 4.0 MG/DL Glucose: 91 (11/22/17 0357) 2-D + DOPPLER ECHOCARDIOGRAM Final Result MRI HEAD WO CONTRAST Final Result Normal MRI of the brain without evidence [...] Emeli Burgess M.D. on 11/21/2017 7:23 AM. Pertinent radiology reviewed. Aniceto Chinchilla MD Neurology Resident Pager [phone] Associated attestation - Tangela Webster MD - 11/22/2017 3:28 PM CDT Neurology Attending Attestation Patient has been seen and evaluated on attending rounds; bailon elements of the history and physical examination were repeated in order to confirm findings. Goals and plan of care was discussed with the patient. I have reviewed the above note and generally agree with the findings, plan and documentation. I spent a total of 40 minutes in patient care today, with 25 minutes spent counseling the patient and coordinating care. Doing well this AM. DIscussed her ongoing headaches and potential treatment modalities. Will plan to initiate amitryptilline 25 mg qHS which can be titrated upwards slowly over several weeks as an outpatient to 75 mg or lowest dose that assists with her headache symptoms. She does request a neurology referral for her chronic migraines near [place], [place], which is certainly reasonable. No evidence of stroke on MRI. Will d/c with medrol dose katherin for short term abortive assistance while prophylactic medication is titrating. Also with Zofran PO prn nausea, which is a significant component to her headache symptoms. Tangela Webster MD Vascular Neurology * Bernadette Portillo, RN - 11/22/2017 2:03 PM CDT Pt discharged to home at this time with significant other. Discharge instructions reviewed with pt; all questions answered. * Katty Plasencia, RN - 11/22/2017 12:21 AM CDT Patient alert and oriented when care assumed. Patient denied pain/needs at that time. Patient assessment documented. Patient's POC reviewed. Patient denied questions/concerns after discussion. Call-light in reach and bed in low locked position. Will continue to monitor. * Eliza Mcclure, RN - 11/21/2017 3:53 PM CDT I have reviewed the notes, assessment, and/or procedures performed by HELEN Alarcon and concur with her/his documentation unless otherwise noted. * Kalyani Simpson, PT - 11/21/2017 2:37 PM CDT PHYSICAL THERAPY ASSESSMENT MOBILITY: Progressive Mobility Level: Walk in hallway Distance Walked (feet): 20 (10ft + 10ft) Level of Assistance: Assist X1 with chair follow Assistive Device: Walker Time Tolerated: 11-30 minutes Activity Limited By: Weakness;Fatigue (does not have foot drop boot from home) SUBJECTIVE: Subjective Significant hospital events: 32 y.o. female with history of possible stroke ( does not remember details) 2003, Broken R leg, DVT s/p IVC filter and on and off xarelto in the past, PFO, migraine (hemiplegic- states difficult walking/ L leg weakness with headaches), bipolar and dissociation disorder, transferred from [facility], after receiving tPA for LUE & LLE weakness and numbness associated with headache. Mental / Cognitive Status: Alert;Oriented;Cooperative;Follows Commands Persons Present: Occupational Therapist Pain: Patient has no complaint of pain Pain Interventions: Patient agrees to participate in therapy;Patient assisted into position of comfort Ambulation Assist: Independent Mobility at Household Level with Device Patient Owned Equipment: Single Point Cane;Roller Walker Home Situation: Lives with Family (two kids (13 and 10 y.o)) Type of Home: House Entry Stairs: 1-2 Stairs In-Home Stairs: No Stairs Comments: Previously independent with mobility (uses roller walker vs. cane). Receives assistance from caregiver 5 hours/day for IADLs and bathing. ROM: ROM UE ROM: WFL LE ROM: WFL STRENGTH: Strength Overall Strength: WFL;Generalized Weakness POSTURE/NEURO: Posture / Neurological Head Control: Independent Posture: Obesity BED MOBILITY/TRANSFERS: Bed Mobility/Transfers Bed Mobility: Supine to Sit: Minimal Assist Transfer Type: Sit to Stand Transfer: Assistance Level: From;Bed;To/From;Bed Side Chair;Moderate Assist;of 1st person;Minimal Assist;of 2nd person Transfer: Assistive Device: None Transfers: Type Of Assistance: For Balance;For Strength Deficit;For Safety Considerations End Of Activity Status: Up in Chair;Nursing Notified;Instructed Patient to Request Assist with Mobility;Instructed Patient to Use Call Light (TABs alarm set) BALANCE: Balance Sitting Balance: Static Sitting Balance;Dynamic Sitting Balance;Standby Assist Standing Balance: Static Standing Balance;Dynamic Standing Balance;2 UE support; Minimal Assist GAIT: Gait Gait Distance: 20 feet (10 + 10) Gait: Assistance Level: Minimal Assist;x2 People;Management of Lines;Safety Considerations (chair follow) Gait: Assistive Device: Roller Walker Gait: Descriptors: Forward trunk flexion;Pace: Slow;Decreased foot clearance RLE ;No balance loss Comments: Patient does not have foot drop boot here at hospital. Anticipate patient would be at baseline if she had her boot. Likely close to baseline at this time. Activity Limited By: Weakness EDUCATION: Education Persons Educated: Patient Patient Barriers To Learning: None Noted Teaching Methods: Verbal Instruction Patient Response: Verbalized Understanding Topics: Plan/Goals of PT Interventions;Use of Assistive Device/Orthosis; Mobility Progression;Safety Awareness;Up with Assist Only;Importance of Increasing Activity;Ambulate With Nursing;Recommend Continued Therapy ASSESSMENT/PROGRESS: Assessment/Progress Impaired Mobility Due To: Decreased Strength;Decreased Activity Tolerance Assessment/Progress: Should Improve w/ Continued PT AM-PAC 6 Clicks Basic Mobility Inpatient Turning from your back to your side while in a flat bed without using bed rails : None Moving from lying on your back to sitting on the side of a flatbed without using bedrails : A Little Moving to and from a bed to a chair (including a wheelchair): A Little Standing up from a chair using your arms (e.g. wheelchair, or bedside chair): A Little To walk in hospital room: A Little Climbing 3-5 steps with a railing: A Little Raw Score: 19 Standardized (T-scale) Score: 42.48 Basic Mobility CMS 0-100%: 36.99 CMS G Code Modifier for Basic Mobility: CJ GOALS: Goals Goal Formulation: With Patient Time For Goal Achievement: 3 days Pt Will Go Supine To/From Sit: w/ Stand By Assist Pt Will Transfer Sit to Stand: w/ Stand By Assist Pt Will Ambulate: 11-30 Feet, w/ Walker, w/ Stand By Assist Pt Will Go Up / Down Stairs: 1-2 Stairs, w/ Stand By Assist PLAN: Plan Treatment Interventions: Mobility Training;Strengthening;Endurance Training Plan Frequency: 5 Days per Week PT Plan for Next Visit: Progress gait distance next visit RECOMMENDATIONS: PT Discharge Recommendations: Home with Assistance;Home with consistent supervision and Home Health Setting (continued caregiver support - 5 hrs/day) Comments: Anticipate patient is close to her baseline mobility. Patient usually wears a boot for drop foot and does not have it at the hospital. Equipment Recommendations: None;Patient owns necessary equipment Therapist: Kalyani Simpson PT, DPT Date: 11/21/2017 * Barbara Harry, OT - 11/21/2017 2:37 PM CDT Formatting of this note may be different from the original. OCCUPATIONAL THERAPY ASSESSMENT NOTE Patient Name: Kaya Alvares Room/Bed: [place] [address] Admitting Diagnosis: stroke Stroke (FORM[facility]) Past Medical History: Diagnosis Date Anemia Bipolar affective disorder ([facility]) Compartment syndrome of right lower extremity ([facility]) 2014 after DVT CVA (cerebral vascular accident) ([facility]) 2003 Disassociation disorder DVT (deep venous thrombosis) ([facility]) 2014 with broken bone Foot drop, right 2015 Migraine PFO (patent foramen ovale) Seizure ([facility]) 2003 associated with her cva at the time, not on medication and has not had another Stroke-like symptom Mobility Progressive Mobility Level: Walk in room Distance Walked (feet): 20 ft (10+10) Level of Assistance: Assist X1 Assistive Device: Walker Time Tolerated: 11-30 minutes Activity Limited By: Weakness Subjective Pertinent Dx per Physician: 32 y.o. female with history of possible stroke ( does not remember details) 2003, Broken R leg, DVT s/p IVC filter and on and off xarelto in the past, PFO, migraine (hemiplegic- states difficult walking/ L leg weakness with headaches), bipolar and dissociation disorder, transferred from [facility], after receiving tPA for LUE & LLE weakness and numbness associated with headache. Precautions: Standard;Falls Pain / Complaints: Patient agrees to participate in therapy Pain Level Current: No pain Objective Psychosocial Status: Willing and Cooperative to Participate Persons Present: Physical Therapist Home Living Type of Home: House Home Layout: One Level Bathroom Shower / Tub: Walk-in Shower Bathroom Toilet: Standard Home Equipment: Walker;Cane;Shower/Tub Bench Comment: Pt reports she is moving into a one-level house. Pt owns a walker and cane. Prior Function Level Of [place]: Needed assistance with ADLs;Needed assistance with homemaking Lives With: Son (13 and 10 year old sons) Receives Help From: Drive In Teller (5 hours/day) Vocational: Unemployed Other Function Comments: Pt reports she has a recruitment manager 5 hours/day to assist with IADLs and bathing. Vision Current Vision: No Visual Deficits;Does Not Wear Glasses Comment: Pt denies vision deficits. ADL's Where Assessed: Standing at Sink Grooming Assist: Minimal Assist Grooming Deficits: Teeth Care;Supervision/Safety Functional Transfer Assist: Moderate Assist (x1, min x1) Functional Transfer Deficits: Steadying;Supervision/Safety Comment: Pt usually wears a boot for drop foot and does not have it at the hospital. Pt standing at sink to complete grooming with minimum assist. Activity Tolerance Endurance: 3/5 Tolerates 25-30 Minutes Exercise w/Multiple Rests Sitting Balance: 4/5 Moves/Returns Trunkal Midpoint 1-2 Inches in Multiple Planes Cognition Overall Cognitive Status: WFL to Adequately Complete Self Care Tasks Safely Orientation: Alert & Oriented x4 Attention: Awake/Alert UE PROM Overall BUE PROM WNL: Yes UE AROM Overall BUE AROM WNL: Yes Coordination: Adequate to Complete ADLs Grasp: L Weakened Comment: Patient uses LUE for functinal tasks without difficulty. However formal ROM assessment not completed this date. Edema RUE Edema: No Significant Edema LUE Edema: No Significant Edema UE Strength / Tone Overall Strength / Tone: WFL Able to Perform ADL Tasks Overall Strength < 4/5: No Comment: BUE strength WFL for use of RW and ADL tasks. Education Persons Educated: Patient Barriers To Learning: None Noted Teaching Methods: Verbal Instruction Patient Response: Verbalized Understanding Topics: Role of OT, Goals for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 Availability #1: will need transportation arranged through [place] Medicaid Expected Discharge Date Expected Discharge Date: 11/24/17 Living Situation Prior to Admission ? Living Arrangements Type of Residence: Home, with Home Health or other assistance Living Arrangements: Children (11 and 10 yo) Bathroom Shower / Tub: Walk-in Shower Does residence have entry and/or side stairs?: Yes (1) Assistance needed prior to admit or anticipated on discharge: Yes Who provides assistance or could if needed?: caregiver 5 hours a day 6 days a week ? Level of Function Prior level of function: Needs assist with ADLs Which ADLs require assistance?: showering, cooking, cleaning When caregiver is gone her children are at the age that they can do own ADL's. ? Cognitive Abilities Cognitive Abilities: Alert and Oriented, Engages in problem solving and planning , Participates in decision making Financial Resources ? Coverage Primary Insurance: Medicaid Secondary Insurance: No insurance Additional Coverage: (S) RX (able to afford low to no copay meds) ? Source of Income Source Of Income: SSDI ? Financial Assistance Needed? na Psychosocial Needs ? Mental Health Mental Health History: Yes Agency name: bipolar, ? Substance Use History ? Other na Current/Previous Services ? PCP Gail Larson, , ? Pharmacy [facility] [address] [place], [place] [address] [address] [address] ? Durable Medical Equipment Durable Medical Equipment at home: Roller Walker, Single Point Cane-- using both ? Home Health Receiving home health: In the past Agency name: [facility] Would patient use this agency again?: Yes ? Hemodialysis or Peritoneal Dialysis ? Tube/Enteral Feeds ? Infusion ? Private Duty ? Home and Community Based Services Home and community based services: Yes Agency name[facility] HCBS assistance hours/week: 30 hours a week- 5 hours for 6 days Patient relates that her caregiver needs extra hours and she has difficulty with PCP. Patient is going to talk with her skilled nursing case manager at Medicaid [facility] to inform of hospitalization. ? [facility] ? Hospice ? Outpatient Therapy ? Custodial Facility/Penitentiary SNF: No ? Inpatient Rehab IPR: No ? Long-Term Acute Care Hospital LTACH: No ? Acute Hospital Stay Acute Hospital Stay: In the past Was patient's stay within the last 30 days?: No Jori Elmore RN MSN ONC Nurse Mortgage Manager Pg [phone] * Transfer - Brianna Melendrez MD - 11/21/2017 11:55 AM CDT In-Hospital Transfer Note Admission Diagnosis: Complex migraine vs conversion disorder Admission Date: 11/20/2017 Active Hospital Problem List: Active Problems: Stroke (HCC) PFO (patent foramen ovale) Migraine Foot drop, right DVT (deep venous thrombosis) (HCC) Disassociation disorder Bipolar affective disorder (HCC) Stroke-like symptom Hospital Course: 32 y.o. female with history of possible stroke (does not remember details) 2003 , Broken R leg, DVT s/p IVC filter and on and off xarelto in the past, PFO, migraine (hemiplegic- states difficult walking/ L leg weakness with headaches), bipolar and dissociation disorder, transferred from [facility], after receiving tPA for LUE & LLE weakness and numbness associated with headache. MRI neg for stroke, aspirin 81mg discontinued. CTA not suggestive of vasculitis. For headache, cocktail including mag, compazine and depacon helped while inpatient. Weakness improving with improvement in headache. Takes gabapentin 300mg bid- increased to 300mg tid for migraine ppx. In addition, can also add nortriptyline for prevention if needed. delivery representative consult placed. Significant Medication Information (to include antibiotic duration/indication, anticoagulation and steroids, etc.): Gabapentin increased from 300mg bid to tid. Adding mag ox 400 bid for migraine ppx. Procedures With Dates: none Consults: delivery representative, PT/OT Follow-Up Items: F/u echo delivery representative recs Activity/Weight bearing status: Pending PT/OT assessment. LLE ~2/5 currently on exam Nutrition: Reg diet Discharge Plan: Pending PT/OT assessment Verbal check out provided to: Dr. Amor Melendrez MD Pager [phone] * Advanced Care Planning/Resuscitation Status - Laila Quinones APRN - 11/20 4:34 AM CDT Advance Care Planning/Resuscitation Status Conversation Individuals present for advance care planning conversation: Amy Quinones APRN and patient Pertinent details of conversation (including direct quotes from patient or surrogate): I asked the patient if her heart were to stop and/or she were to quit breathing, would she want CPR, shocks or intubation. She said, "DNR" I asked her does that mean only no CPR. She stated that she would be okay with intubation, defibrillation, vasopressors, but just not actual chest compressions. She named her close friend Jie Holley [phone] as her decision maker, should she be unable to make decisions. Outcome of conversation: DNAR - Full Intervention Documents completed as a result of this conversation: None in this encounter Plan of Treatment Name Priority Associated Diagnoses Order Schedule AMB REFERRAL TO NEUROLOGY Routine Hemiplegic migraine Ordered: 2017 without status migrainosus, not intractable as of this encounter Procedures Procedure Name Priority [...] results section. in this encounter Results * PHOSPHORUS (11/22/2017 3:57 AM) Phosphorus 3.4 2.0 - 4.0 MG/DL [facility] Specimen Blood Performing Organization Address City/State/Zipcode Phone Number [facility] [address] [place] [address] * BASIC METABOLIC PANEL (11/22/2017 3:57 AM) Sodium 133 (L) 137 - 147 MMOL/L [...] Blood Performing Organization Address City/State/Zipcode Phone Number [facility] [address] [place] [address] * 2-D + DOPPLER ECHOCARDIOGRAM (11/21/2017 10:01 [...] Larson OTHER OUTSIDE LAB CV ECHO PV RECREATION ACTIVITIES COORDINATOR HELEN Alarcon-[id number] Bubbles OTHER OUTSIDE LAB LV mass 101.17 66 - 150 g OTHER OUTSIDE LAB RWT 0.47 <=0.42 OTHER OUTSIDE LAB TV rest pulmonary artery 23 mmHg OTHER OUTSIDE LAB pressure Right Heart Systolic TDI 0.120 m/s OTHER OUTSIDE LAB S' Cardiology Ultrasound Siemens [id number] OTHER OUTSIDE LAB Machine Left Ventricle Mass [...] study available for comparison. Performing Organization Address City/State/Zipcode Phone Number OTHER OUTSIDE LAB * IONIZED CALCIUM (11/21/2017 3:30 AM) Ionized Calcium 1.08 1.0 - 1.3 MMOL/L [facility] Specimen Blood Performing Organization Address [facility] Phone Number [facility] [address] [place] [address] * PHOSPHORUS (11/21/2017 3:00 AM) Phosphorus 2.4 2.0 - 4.0 MG/DL [facility] Specimen Blood Performing Organization Address [facility] Phone Number [facility] [address] [place] [address] * MAGNESIUM (11/21/2017 3:00 AM) Magnesium 2.4 1.6 - 2.6 mg/dL [facility] Specimen Blood Performing Organization Address [facility] Phone Number [facility] [address] [place] [address] * CBC AND DIFF (11/21/2017 3:00 AM) White Blood Cells 7.8 4.5 - 11.0 K/UL [facility] RBC 4.12 4.0 - 5.0 M/UL [facility] Hemoglobin 10.4 (L) 12.0 - 15.0 GM/DL [facility] Hematocrit 33.2 (L) 36 - 45 % [facility] MCV 80.7 80 - 100 FL [facility] MCH 25.3 (L) 26 - 34 [facility] MCHC 31.3 (L) 32.0 - [...] MAIN LAB Specimen Blood Performing Organization Address City/[facility]/Zipcode Phone Number MAIN LAB [address] [place] [phone] * BASIC METABOLIC PANEL (11/21/2017 3:00 AM) Sodium 134 (L) 137 - 147 MMOL/L [facility] Potassium 4.5 3.5 - 5.1 MMOL/L [facility] Chloride 108 98 - 110 MMOL/L [facility] CO2 22 21 - 30 MMOL/L [facility] Anion Gap 4 3 - 12 [facility] Glucose 96 70 - 100 MG/DL [facility] Blood Urea Nitrogen 6 (L) 7 - 25 MG/DL [facility] Creatinine 0.58 0.4 - 1.00 MG/DL [facility] Calcium 8.3 (L) 8.5 - 10.6 MG/DL [facility] [...] for questions. Specimen Blood Performing Organization Address [facility] Phone Number [facility] [address] [place] [phone] * MRI HEAD WO CONTRAST (11/20/2017 7:08 [...] on 11/21/2017 7:23 AM. Performing Organization Address [facility] Phone Number RAD RESULTS * POTASSIUM (11/20/2017 3:53 PM) Potassium 4.4 3.5 - 5.1 MMOL/L MAIN LAB Specimen Blood Performing Organization Address [facility] Phone Number [facility] [address] [place] [address] * MAGNESIUM (11/20/2017 3:53 PM) Magnesium 2.3 1.6 - 2.6 mg/dL MAIN LAB Specimen Blood Performing Organization Address [facility] Phone Number [facility] [address] [place] [address] * PHOSPHORUS (11/20/2017 3:53 PM) Phosphorus 2.0 2.0 - 4.0 MG/DL [facility] Specimen Blood Performing Organization Address [facility] Phone Number [facility] [address] [place] [address] * CULTURE-BLOOD W/SENSITIVITY (11/20/2017 3:14 AM) Battery Name BLOOD CULTURE MAIN LAB Specimen Description BLOOD MAIN LAB RIGHT Art Special Requests NONE MAIN LAB Culture NO GROWTH 5 DAYS MAIN LAB Report Status FINAL MAIN LAB 11/26/2017 Specimen Blood Performing Organization Address [facility] Phone Number MAIN LAB [address] [place] [address] * PHENCYCLIDINES-URINE RANDOM (11/20/2017 2:56 AM) Phencyclidine (PCP) NEG NEG-NEG MAIN LAB Comment: RESULTS WERE OBTAINED BY IMMUNOASSAY AND ARE PRESUMPTIVE ONLY. POSITIVE INDICATES THE PRESENCE OF SUBSTANCE WITH CHARACTERISTICS SIMILAR TO DRUG-DRUG CLASS OR METABOLITE IN CONC. EQUAL TO OR EXCEEDING VALUES LISTED. PHENCYCLIDINE (PCP)25 NG/ML Specimen Urine - Urine Performing Organization Address [facility] Phone Number MAIN LAB [address] [place] [address] * OPIATES-URINE RANDOM (11/20/2017 2:56 AM) Opiates-Urine NEG NEG-NEG MAIN LAB Comment: RESULTS WERE OBTAINED BY IMMUNOASSAY AND ARE PRESUMPTIVE ONLY. POSITIVE INDICATES THE PRESENCE OF SUBSTANCE WITH CHARACTERISTICS SIMILAR TO DRUG-DRUG CLASS OR METABOLITE IN CONC. EQUAL TO OR EXCEEDING VALUES LISTED. OPIATES 2000 NG/ML Specimen Urine - Urine Performing Organization Address [facility] Phone Number [facility] [address] [place] [address] * COCAINE-URINE RANDOM (11/20/2017 2:56 AM) Cocaine-Urine NEG NEG-NEG MAIN LAB Comment: RESULTS WERE OBTAINED BY IMMUNOASSAY AND ARE PRESUMPTIVE ONLY. POSITIVE INDICATES THE PRESENCE OF SUBSTANCE WITH CHARACTERISTICS SIMILAR TO DRUG-DRUG CLASS OR METABOLITE IN CONC. EQUAL TO OR EXCEEDING VALUES LISTED. COCAINE 300 NG/ML Specimen Urine - Urine Performing Organization Address [facility] Phone Number MAIN LAB [address] [place] [address] * CANNABINOIDS-URINE RANDOM (11/20/2017 2:56 AM) THC NEG NEG-NEG MAIN LAB Comment: RESULTS WERE OBTAINED BY IMMUNOASSAY AND ARE PRESUMPTIVE ONLY. POSITIVE INDICATES THE PRESENCE OF SUBSTANCE WITH CHARACTERISTICS SIMILAR TO DRUG-DRUG CLASS OR METABOLITE IN CONC. EQUAL TO OR EXCEEDING VALUES LISTED. CANNABINOIDS 50 NG/ML Specimen Urine - Urine Performing Organization Address [facility] Phone Number MAIN LAB [address] [place] [address] * BENZODIAZEPINES-URINE RANDOM (11/20/2017 2:56 AM) Benzodiazepines NEG NEG-NEG MAIN LAB Comment: RESULTS WERE OBTAINED BY IMMUNOASSAY AND ARE PRESUMPTIVE ONLY. POSITIVE INDICATES THE PRESENCE OF SUBSTANCE WITH CHARACTERISTICS SIMILAR TO DRUG-DRUG CLASS OR METABOLITE IN CONC. EQUAL TO OR EXCEEDING VALUES LISTED. BENZODIAZEPINES 200 NG/ML Specimen Urine - Urine Performing Organization Address [facility] Phone Number MAIN LAB [address] [place] [address] * BARBITURATES-URINE RANDOM (11/20/2017 2:56 AM) Barbiturates,Urine NEG NEG-NEG MAIN LAB Comment: RESULTS WERE OBTAINED BY IMMUNOASSAY AND ARE PRESUMPTIVE ONLY. POSITIVE INDICATES THE PRESENCE OF SUBSTANCE WITH CHARACTERISTICS SIMILAR TO DRUG-DRUG CLASS OR METABOLITE IN CONC. EQUAL TO OR EXCEEDING VALUES LISTED. BARBITURATES 200 NG/ML Specimen Urine - Urine Performing Organization Address [facility] Phone Number MAIN LAB [address] [place] [address] * AMPHETAMINES-URINE RANDOM (11/20/2017 2:56 AM) Amphetamines NEG NEG-NEG MAIN LAB Comment: RESULTS WERE OBTAINED BY IMMUNOASSAY AND ARE PRESUMPTIVE ONLY. POSITIVE INDICATES THE PRESENCE OF SUBSTANCE WITH CHARACTERISTICS SIMILAR TO DRUG-DRUG CLASS OR METABOLITE IN CONC. EQUAL TO OR EXCEEDING VALUES LISTED. AMPHETAMINES 1000 NG/ML Specimen Urine - Urine Performing Organization Address [facility] Phone Number MAIN LAB [address] [place] [address] * BETA-HCG (11/20/2017 2:30 AM) Beta-HCG,Serum <1 <5 U/L MAIN LAB Performing Organization Address [facility] Phone Number MAIN LAB [address] [place] [address] * PROTIME INR (PT) (11/20/2017 2:30 AM) INR 1.1 0.8 - 1.2 [facility] Specimen Blood Performing Organization Address [facility]/Zipcode Phone Number [facility] [address] [place] [phone] * COMPREHENSIVE METABOLIC PANEL (11/20/2017 2:30 AM) [...] for questions. Specimen Blood Performing Organization Address City/[facility]/Zipcode Phone Number MAIN LAB [address] [place] [address] * CBC AND DIFF (11/20/2017 2:30 AM) White Blood Cells 10.2 4.5 - 11.0 K/UL [facility] RBC 4.52 4.0 - 5.0 M/UL [facility] Hemoglobin 11.4 (L) 12.0 - 15.0 GM/DL [facility] Hematocrit 36.2 36 - 45 % [facility] MCV 80.3 80 - 100 FL MAIN LAB MCH 25.4 (L) 26 - 34 PG [facility]IN LAB MCHC 31.6 (L) 32.0 - 36.0 G/DL MAIN LAB RDW 17.8 (H) 11 - 15 % [facility] Platelet Count 392 150 - 400 K/UL MAIN LAB MPV 7.7 7 - 11 FL MAIN LAB Neutrophils 54 41 - 77 % [facility] Lymphocytes 37 24 - 44 % [facility] Monocytes 6 4 - 12 % [facility] Eosinophils 2 0 - 5 % [facility] Basophils 1 0 - 2 % [facility] Absolute Neutrophil Count 5.50 1.8 - 7.0 K/UL [facility] Absolute Lymph Count 3.80 1.0 - 4.8 K/UL MAIN LAB Absolute Monocyte Count 0.60 0 - 0.80 K/UL MAIN LAB Absolute Eosinophil Count 0.20 0 - 0.45 K/UL MAIN LAB Absolute Basophil Count 0.00 0 - 0.20 K/UL MAIN LAB Specimen Blood Performing Organization Address City/[facility] Phone Number [facility] [address] [place] [address] * HEMOGLOBIN A1C (11/20/2017 2:30 AM) Hemoglobin A1C 5.6 4.0 - 6.0 % [facility] Comment: The ADA recommends that most patients with type 1 and type 2 diabetes maintain an A1c level <7%. Specimen Blood Performing Organization Address [facility] Phone Number [facility] [address] [place] [address] * LIPID PROFILE (11/20/2017 2:30 AM) Cholesterol 118 <200 MG/DL MAIN LAB Triglycerides 92 <150 MG/DL MAIN LAB HDL 39 (L) >40 MG/DL [facility]IN LAB LDL 71 <100 MG/DL [facility]IN [facility] VLDL 18 MG/DL [facility] Non HDL Cholesterol 79 MG/DL MAIN LAB Comment: Calculated non-HDL Cholesterol (non-HDL-C) indirectly measures LDL-C, Lp(a), IDL-C, and VLDL-C.It is a surrogate marker for Apoprotein B.Goal should be less than 130 mg/dL. Specimen Blood Performing Organization Address [facility]/Zipcode Phone Number [facility] [address] [place] [address] in this encounter Visit Diagnoses Diagnosis Hemiplegic migraine without status migrainosus, not intractable - Primary Hemiplegic migraine, without mention of intractable migraine without mention of status migrainosus Stroke-like symptom Other symptoms involving nervous and musculoskeletal systems PFO (patent foramen ovale) Ostium secundum type atrial septal defect Migraine Migraine, unspecified, without mention of intractable migraine without mention of status migrainosus Foot drop, right Other acquired deformity of ankle and foot DVT (deep venous thrombosis) ([facility]) Acute venous embolism and thrombosis of unspecified deep vessels of lower extremity Disassociation disorder Dissociative disorder or reaction, unspecified Bipolar affective disorder (HCC) Bipolar disorder, unspecified Admitting Diagnoses Diagnosis stroke Stroke ([facility]) Administered Medications Medication Order MAR Action Action Date Dose Rate Site acetaminophen (TYLENOL) tablet 650 mg Given 11/22/2017 650 mg 650 mg, Oral, EVERY 4 HOURS PRN, 02:11 CDT Starting Tue11/20/17 at 0825, Until Tue11/22/17 at 1609, Pain non-opioid: may be used alone or in combination with opioid analgesia, headache, TOTAL ACETAMINOPHEN DOSE NOT TO EXCEED 4GM DAILY Given 11/22/2017 650 mg 06:22 CDT Given 11/22/2017 650 mg 12:45 CDT amitriptyline (ELAVIL) tablet 25 mg 25 mg, Oral, AT BEDTIME DAILY, First dose on Tue11/22/17 at 2100, Until Discontinued aspirin chewable tablet 81 mg Given 11/21/2017 81 mg 81 mg, Oral, DAILY, First dose on Tue 08:22 CDT 11/21/17 at 0900, Until Discontinued, If pt received Alteplase, DO NOT give this medication until 24 hours after infusion completed. diphenhydrAMINE (BENADRYL) injection 25 Given 11/22/2017 25 mg mg 12:45 CDT 25 mg, Intravenous, EVERY 6 HOURS PRN, Starting Tue11/22/17 at 1011, Until Tue11/22/17 at 1609, Nausea/Vomiting Injectable docusate (COLACE) capsule 100 mg Given 11/20/2017 100 mg 100 mg, Oral, TWICE DAILY, First dose on 08:09 CDT 11/20/17 at 0900, Until Discontinued, Hold for loose stools Given 11/21/2017 100 mg 08:22 CDT gabapentin (NEURONTIN) capsule 300 mg Given 11/21/2017 300 mg 300 mg, Oral, THREE TIMES DAILY, First 20:48 CDT dose on Tue11/21/17 at 1500, Until Discontinued Given 11/22/2017 300 mg 08:48 CDT Given 11/22/2017 300 mg 14:00 CDT heparin (porcine) PF syringe 5,000 Units Given 11/21/2017 5,000 Units Abdomen:LLQ 5,000 Units, Subcutaneous, EVERY 8 14:31 CDT HOURS, First dose on Tue11/21/17 at 0600, Until Discontinued, NOTE: This is a HIGH ALERT Medication. Given 11/21/2017 5,000 Units Abdomen:RLQ 22:04 CDT Given 11/22/2017 5,000 Units Abdomen:RLQ 06:20 CDT hydrALAZINE (APRESOLINE) injection 10 mg 10 mg, Intravenous, EVERY 6 HOURS PRN, Starting Tue11/20/17 at 0422, Until Tue11/22/17 at 1609, Systolic Blood Pressure..., >180 mmHg or MAP >110 mmHg ketorolac (TORADOL) injection 30 mg Given 11/22/2017 30 mg 30 mg, Intravenous, EVERY 6 HOURS PRN, 11:01 CDT Starting Tue11/22/17 at 1010, Until Tue11/22/17 at 1609, Pain non-opioid: may be used alone or in combination with opioid analgesia, Please note: this medication will be automatically discontinued 5 days after ordered per hospital policy. Please obtain a new order if the medication needs to be continued. magnesium oxide (MAG-OX) tablet 400 mg Given 11/21/2017 400 mg 400 mg, Oral, TWICE DAILY, First dose on 14:31 CDT Tue11/21/17 at 1415, Until Discontinued, Delivers 241.3mg elemental magnesium per tab Given 11/21/2017 400 mg 20:48 CDT Given 11/22/2017 400 mg 08:48 CDT magnesium sulfate 1 g/D5W 100 mL IVPB Given - New 11/20/2017 1 g 100 mL/hr 1 g, Intravenous, 100 mL, Administer Bag 13:02 CDT over 1 Hours, ONCE, 1 dose, [employer] 11/20/17 at 1245, Each 1gm delivers 8.1 mEq Magnesium. magnesium sulfate 1 g/D5W 100 mL IVPB Given - New 11/21/2017 1 g 100 mL/hr 1 g, Intravenous, 100 mL, Administer Bag 01:23 CDT over 60 Minutes, ONCE, 1 dose, Tue11/21/17 at 0030, Each 1gm delivers 8.1 mEq Magnsium. milk of magnesia (CONC) oral suspension Given 11/20/2017 10 mL 10 mL 08:09 CDT 10 mL, Oral, DAILY, First dose on [employer] 11/20/17 at 0900, Until Discontinued, May hold if BM within 24 hours of dose. 10 mL CONC=30 mL MOM ondansetron (ZOFRAN) injection 4 mg Given 11/21/2017 4 mg 4 mg, Intravenous, EVERY 6 HOURS PRN, 17:49 CDT Starting [employer] 11/20/17 at 0422, Until Tue11/22/17 at 1609, Nausea/Vomiting Injectable potassium chloride SR (K-DUR) tablet Given 11/20/2017 40 mEq 40-60 mEq 12:56 CDT 40-60 mEq, Oral, NEEDED, Starting [employer] 11/20/17 at 0520, Until Tue11/21/17 at 1436, Other..., For potassium replacement, See admin instructions, If urine output < 30 mL/hr or SCr >2 mg/dL, check with physician prior to giving K+ replacement. - K 3-4 mmol/L, administer KCl 40 mEq PO/NG x1 dose - K 2.5-2.9 mmol/L, administer KCl 60 mEq PO/NG x1 dose AND notify physician for additional dosing - K < 2.5 mmol/L notify physician for dosing Recheck serum potassium two hours after completion of appropriate replacement dose. Repeat this standing order x 2. Notify physician if serum potassium < 3.3 mmol/L after three replacements. Do NOT break or crush tablet prochlorperazine maleate (COMPAZINE) Given 11/20/2017 10 mg tablet 10 mg 13:02 CDT 10 mg, Oral, ONCE, 1 dose, [employer] 11/20/17 at 1245 prochlorperazine maleate (COMPAZINE) Given 11/21/2017 10 mg tablet 10 mg 00:31 CDT 10 mg, Oral, ONCE, 1 dose, [facility] 11/21/17 at 0030 prochlorperazine maleate (COMPAZINE) Given 11/21/2017 10 mg tablet 10 mg 18:08 CDT 10 mg, Oral, EVERY 6 HOURS PRN, Starting Tue11/21/17 at 1307, Until Tue11/22/17 at 1609, Nausea/Vomiting PO senna/docusate (SENOKOT-S) tablet 1 Given 11/20/2017 1 tablet tablet 08:09 CDT 1 tablet, Oral, TWICE DAILY, First dose on Tue11/20/17 at 0900, Until Discontinued, Hold for loose stools. If patient unable to take tablet, give 10 mL of senna/docusate (SENOKOT-S) solution. Send [employer] Alert message to pharmacy. Given 11/21/2017 1 tablet 20:48 CDT sodium chloride 0.9 % infusion Given - 11/22/2017 500 mL 500 mL, 500 mL, Intravenous, BOLUS, 1 Bag 11:01 CDT dose, Tue11/22/17 at 1015 valproic acid (DEPACON) 500 mg in sodium Given - 11/20/2017 500 mg 105 mL/hr chloride 0.9% (NS) IVPB Bag 15:58 CDT 500 mg, Intravenous, 105 mL, Administer over 60 Minutes, ONCE, 1 dose, Tue11/20/17 at 1245 valproic acid (DEPACON) 500 mg in sodium Given - 11/21/2017 500 mg 105 mL/hr chloride 0.9% (NS) IVPB Bag 00:32 CDT 500 mg, Intravenous, 105 mL, Administer over 60 Minutes, ONCE, 1 dose, Tue11/21/17 at 0030 valproic acid (DEPACON) 500 mg in sodium Given - 11/22/2017 500 mg 105 mL/hr chloride 0.9% (NS) IVPB Bag 11:01 CDT 500 mg, Intravenous, 105 mL, Administer over 60 Minutes, ONCE, 1 dose, Tue11/22/17 at 1015 in this encounter
--- OUTSIDE RECORDS SUMMARY | 2018-01-17 13:22 | XMS REPORT | Encounter Summary ---
Author Author [facility] Organization [facility] Address Unknown Phone Unavailable Care Team Providers Care Healthcare Facility Administrator Name Role Phone Gail Larson MD PCP Encounter Details Date Type Department Care Team Description 11/20/2017 Procedure Pass [facility] ICU [address] [place] [address] Social History Tobacco Use Types Packs/Day Years Used Date Never Assessed Sex Assigned at Date Recorded Not on file as of this encounter Plan of Treatment Not on fileas of this encounter Visit Diagnoses Not on filein this encounter
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
[2018-01-17] MEDS ORDERED: diphenhydrAMINE 50 MG/ML INJ (BENADRYL) IVP ONE (13:30)
[2018-01-17] MEDS ORDERED: methylPREDNISolone 125 MG (Solu-MEDROL) VIAL IVP ONE (13:30)
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
--- NOTE | 2018-01-17 13:36 | ED Integumentary General ---
General Chief Complaint: Allergic Reaction Stated Complaint: RASH;RITCHIE AND ITCHES Nursing Triage Note: ARRIVED VIA AMB TO ROOM 10 USING HER WALKER. COMPLAINS OF RASH AND ITCHING STARTING TUESDAY. SEEN AT [facility] ON TUESDAY ET GIVEN PREDNISONE AND PEPCID. PT STATES SHE TOOK BENADRYL YESTERDAY AND IT DID NOT HELP. Source: patient Exam Limitations: no limitations (MAGDY MARCH) History of Present Illness Date Seen by Provider: Jan 17, 2018 Time Seen by Provider: 13:15 Initial Comments Patient is a 32-year-old female who presents to the emergency room with complaints of a hives that started on her forearms 3 days ago. She was seen in [facility] yesterday and was given a prescription for prednisone 40mg daily and Pepcid. She reports only taking Benadryl one time yesterday but it did not help much so she has not taken any more. She's had one dose of her prednisone and Pepcid but the hives continue to get worse spreading to her upper legs, buttocks, neck and upper arms. She denies swelling to her lips, tongue, throat, denies shortness of breath. Timing/Duration: other (3 days) Location: face (neck), extremities (Upper arms. ), generalized Possible Cause: no cause identified Associated Symptoms: hives (itching) (MAGDY MARCH) Allergies and Home Medications Allergies Coded Allergies: latex (Verified Allergy, Severe, BLISTERS, 08/24/17) penicillin (Verified Allergy, Severe, ITCHING, 08/24/17) Sulfa (Sulfonamide Antibiotics) (Verified Allergy, Unknown, RASH, 08/24/17) Patient Home Medication List Home Medication List Reviewed: Yes (MAGDY MARCH) Review of Systems Review of Systems Constitutional: see HPI; No chills, No fever Skin: see HPI, pruritus, rash (hives) (MAGDY MARCH) All Other Systems Reviewed Negative Unless Noted: Yes (MAGDY MARCH) Past [id number]-[id number] Hx Past Med/Social Hx: Reviewed Nursing Past Med/Soc Hx (MAGDY MARCH) Patient Social History Alcohol Use: Past History Alcohol Beverage of Choice: Other Recreational Drug Use: No Smoking Status: Current Everyday Smoker Type Used: Cigarettes 2nd Hand Smoke Exposure: Yes Recent Foreign Travel: No Contact w/Someone Who Travel: No Recent Infectious Disease Expo: No Recent Hopitalizations: No (MAGDY MARCH) Immunizations Up To Date Tetanus Booster (TDap): Less than 5yrs Date of Pneumonia Vaccine: Dec 10, 2014 (MAGDY MARCH) Seasonal Allergies Seasonal Allergies: Yes (MAGDY MARCH) Past Medical History Surgeries: Yes (LOOP RECORDER) Orthopedic, 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, Vascular Surgery Respiratory: Yes (CHILDHOOD) Asthma Cardiac: Yes Congenital Heart Disease, Deep Vein Thrombosis, Palpitations Neurological: Yes Headaches /Migraines, Neuropathy, Seizure Disorder, Stroke 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 Disorders: No Female 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 Disorders: Denies MANAGER ETHICS History: IUD, 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 Sexually Transmitted Disease: No HIV/AIDS: No Genitourinary: Yes Kidney Stones Gastrointestinal: Yes Colitis, Irritable Bowel Musculoskeletal: Yes Degenerate Disk Disease, Scoliosis, Chronic Back Pain, Fractures Endocrine: Yes (DIET CONTROLLED DIABETIC) Diabetes, Non-Insulin dep HEENT: Yes ("LEGALLY BLIND" ) Loss of Vision: Bilateral Hearing Impairment: Denies Cancer: No Psychosocial: Yes (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) ADD/ADHD, Anxiety, PTSD, Suicide Attempts, Bipolar, Depression Integumentary: No Blood Disorders: No Adverse Reaction/Blood Tranf: No (N/A) (MAGDY MARCH) Family Medical History Reviewed Nursing Family Hx (MAGDY MARCH) Antiphospholipid syndrome 19 MOTHER Diabetes mellitus 19 FATHER G8 BROTHER FH: aneurysm 19 FATHER FH: lupus 19 MOTHER FHx: congestive heart failure 19 FATHER FHx: renal failure 19 MOTHER Heart murmur 19 MOTHER Lupus anticoagulant disorder 19 MOTHER Patent foramen ovale 19 FATHER Barry syndrome G8 SISTER No Pertinent Family Hx (MAGDY MARCH) Physical Exam Vital Signs Vital Signs - First Documented 01/17/18 13:00 Temp 98.0 Pulse 102 Resp 6 B/P (MAP) 131/84 (100) Pulse Ox 96 O2 Delivery Room Air (SHANTI CLAYOTN) Vital Signs Capillary Refill : Less Than 3 Seconds (MAGDY MARCH) General Appearance: WD/WN, no apparent distress Cardiovascular: normal peripheral pulses, regular rate, rhythm, no edema, no gallop, no JVD, no murmur Respiratory: chest non-tender, lungs clear, normal breath sounds, no respiratory distress, no accessory muscle use Gastrointestinal: normal bowel sounds, non tender, soft, no organomegaly, no pulsatile mass Skin: normal color, warm/dry, other (raised hives ) Skin Problem Location: neck, upper extremities, torso (Buttocks), other (MAGDY MARCH) Progress/Results/Core Measures Results/Orders My Orders Orders - SHANTI CLAYTON Famotidine Tablet (Pepcid Tablet) (01/17/18 14:08) (SHANTI CLAYTON) Medications Given in ED Current Medications Medications Dose Ordered Sig/Diomedes Route Start Time Stop Time Status Last Admin Dose Admin Diphenhydramine HCl 25 mg ONCE ONCE IVP 01/17/18 13:30 01/17/18 13:31 DC 01/17/18 13:36 25 MG Methylprednisolone Sodium Succinate 125 mg ONCE ONCE IVP 01/17/18 13:30 01/17/18 13:31 DC 01/17/18 13:35 125 MG (SHANTI CLAYTON) Vital Signs/I&O 01/17/18 01/17/18 13:00 14:24 Temp 98.0 Pulse 102 77 Resp 6 16 B/P (MAP) 131/84 (100) 119/76 (90) Pulse Ox 96 98 O2 Delivery Room Air Room Air (SHANTI CLAYTON) Blood Pressure Mean: 100 Progress Progress Note : Progress Note 1345 assumed care of patient from Magdy March APRN. Patient reports improvement of symptoms. She feels the hives are improving. She denies any swelling in her lips or tongue. She is having no difficulty breathing. 1400 discharge instructions and return precautions reviewed with the patient. All questions answered. (SHANTI CLAYTON) Transfer of Care Time: 13:45 Care transferred to: Shanti Clayton APRN (MAGDY MARCH) Departure Impression Primary Impression: Hives Additional Impression: Allergic reaction Qualified Codes: T78.40XA - Allergy, unspecified, initial encounter Disposition: 01 HOME, SELF-CARE Condition: Improved Departure-Patient Inst. Decision time for Depature: 14:05 (SHANTI CLAYTON) Referrals: HIEU YAP MD (PCP/Family) Primary Care Physician Patient Instructions: Hives (DC) Add. Discharge Instructions: Continue to take the prednisone as directed. Take the Pepcid one tablet twice daily. Take Benadryl 25 mg 1 tablet every 8 hours. Follow-up with your primary care provider if symptoms are not improving or worsen. Return to emergency department if rash worsens, difficulty breathing, feeling that time or lips are swelling, or new problems. All discharge instructions reviewed with patient and/or family. Voiced understanding. Copy Copies To 1: HIEU YAP MD, TRAVIS Jan 17, 2018 13:36 SHANTI CLAYTON Jan 17, 2018 14:08
--- OUTSIDE RECORDS SUMMARY | 2018-01-17 13:39 | XMS REPORT | Continuity of Care Document ---
Author Author [facility] Organization [facility] Address Unknown Phone Unavailable Allergies Active Description Code Type Severity Reaction Onset Reported/Identified Relationship to Patient Clinical Status Yes LATEX, NATURAL RUBBER SEVERE DERMATOLOGICAL - HIV Yes NORCO SEVERE ANAPHYLACTIC SHOCK Yes PENICILLINS SEVERE ANAPHYLACTIC SHOCK Yes codeine [id number] Drug Allergy Severe ITCHING, HIVES, 11/03/2014 Yes [...] Drug Allergy Mild RASH 04/15/2015 Yes acetaminophen [id number] Drug Allergy Severe THROAT SWELLING 12/31/2015 Yes hydrocodone [id number] Drug Allergy Severe THROAT SWELLING 12/31/2015 Yes latex [id number] Drug Allergy Severe BLISTERS 08/30/2017 Yes penicillin [id number] Drug Allergy Severe ITCHING 08/30/2017 Yes Sulfa (Sulfonamide Antibiotics) [id number] Drug Allergy Unknown RASH 2017 Medications Medication Packaging Start Date Stop Date Route Dosage Sig KETOROLAC VIAL INJ 60 MG/2CC (TORADOL VIAL) MG 09/30/2017 09/30/2017 [id number] Problems Date Dx Coded Attending Type Code Diagnosis Diagnosed By 10/28/2014 KADIE NEVAREZ MD, Ot 620.2 10/28/2014 KADIE NEVAREZ MD, Ot 626.4 11/03/2014 CAMILLE FISCHER, ASHLEY Bell Ot 786.50 11/03/2014 CAMILLE FISCHER, ASHLEY Bell Ot V12.54 12/24/2014 GERI FISCHER, KADIE Richardson Ot 620.2 12/24/2014 GERI FISCHER, KADIE Richardson Ot 626.4 01/08/2015 NWAGWU, ISIDORE O CRUISE COORDINATOR Ot 745.5 SECUNDUM ATRIAL SEPT DEF 01/08/2015 NWAGWU, ISIDORE O CRUISE COORDINATOR Ot 780.4 DIZZINESS AND GIDDINESS 01/08/2015 NWAGWU, ISIDORE O CRUISE COORDINATOR Ot 780.79 OTH MALAISE FATIGUE 01/08/2015 NWAGWU, ISIDORE O CRUISE COORDINATOR Ot 785.1 PALPITATIONS 01/08/2015 NWAGWU, ISIDORE O CRUISE COORDINATOR Ot 786.50 CHEST PAIN NOS 01/08/2015 NWAGWU, ISIDORE O CRUISE COORDINATOR Ot V12.54 PERSONAL HX OF TIA, CEREBRAL INFARCTION 01/25/2015 LAWRENCE WHITESIDE CRUISE COORDINATOR Ot E11.9 TYPE 2 DIABETES MELLITUS WITHOUT COMPLIC 01/25/2015 LAWRENCE WHITESIDE CRUISE COORDINATOR Ot N39.0 URINARY TRACT INFECTION, SITE NOT SPECIF 01/25/2015 LAWRENCE WHITESIDE CRUISE COORDINATOR Ot R06.02 SHORTNESS OF BREATH 02/04/2015 NWAGWU, ISIDORE O CRUISE COORDINATOR Ot 745.5 02/04/2015 NWAGWU, ISIDORE O CRUISE COORDINATOR Ot 780.4 02/04/2015 NWAGWU, ISIDORE O CRUISE COORDINATOR Ot 780.79 02/04/2015 NWAGWU, ISIDORE O CRUISE COORDINATOR Ot 785.1 02/04/2015 NWAGWU, ISIDORE O CRUISE COORDINATOR Ot 786.50 02/04/2015 NWAGWU, ISIDORE O CRUISE COORDINATOR Ot V12.54 02/21/2015 JARED FISCHER, KENYATTA Andrews [...] MD Ot R40.4 03/29/2015 NWAGWU, ISIDORE O CRUISE COORDINATOR Ot 745.5 03/29/2015 NWAGWU, ISIDORE O CRUISE COORDINATOR Ot 780.4 03/29/2015 NWAGWU, ISIDORE O CRUISE COORDINATOR Ot 780.79 03/29/2015 NWAGWU, ISIDORE O CRUISE COORDINATOR Ot 785.1 03/29/2015 NWAGWU, ISIDORE O CRUISE COORDINATOR Ot 786.50 03/29/2015 NWAGWU, ISIDORE O CRUISE COORDINATOR Ot V12.54 03/29/2015 EAGLE FISCHER, VALERIA Pagan [...] Sonya Lopes MD K59.00 CONSTIPATION, UNSPECIFIED 03/29/2015 Sonya Lopes MD M41.9 SCOLIOSIS, UNSPECIFIED 03/29/2015 Sonya Lopes MD S82.141A DISPLACED BICONDYLAR FRACTURE OF RIGHT TIBIA, INIT 03/29/2015 Sonya Lopes MD 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, IN 03/29/2015 Sonya Lopes MD W17.89XA OTHER FALL FROM ONE LEVEL TO ANOTHER, INITIAL ENCO 03/29/2015 Sonya Lopes MD Z79.82 LONGTERM (CURRENT) USE OF ASPIRIN 03/31/2015 VALERIA GUILLERMO MD Ot M23.91 04/01/2015 VALERIA GUILLERMO MD Ot M23.91 05/05/2015 KENYATTA COLEMAN MD Ot D64.9 ANEMIA, UNSPECIFIED 05/05/2015 KENYATTA COLEMAN MD Ot E11.9 TYPE 2 DIABETES MELLITUS WITHOUT COMPLIC 05/05/2015 KENYATTA COLEMAN MD, Ot E66.9 OBESITY, UNSPECIFIED 05/05/2015 KENYATTA COLEMAN MD Ot F17.210 NICOTINE DEPENDENCE, CIGARETTES, UNCOMPL 05/05/2015 KENYATTA COLEMAN MD Ot I51.9 HEART DISEASE, UNSPECIFIED 05/05/2015 KENYATTA COLEMAN MD Ot M54.5 LOW BACK PAIN 05/05/2015 KENYATTA COLEMAN MD, Ot Z79.899 OTHER FLOUR MIXER (CURRENT) DRUG THERAPY 05/05/2015 KENYATTA COLEMAN MD, Ot Z86.73 PRSNL HX OF TIA (TIA), AND CEREB INFRC W 09/17/2015 JUAN GONZALEZ DO, Ot F17.210 NICOTINE DEPENDENCE, CIGARETTES, UNCOMPL 09/17/2015 JUAN GONZALEZ DO, Ot N39.0 URINARY TRACT INFECTION, SITE NOT SPECIF 09/17/2015 JUAN GONZALEZ DO, Ot R20.2 PARESTHESIA OF SKIN 09/17/2015 JUAN GONZALEZ DO Ot R51 HEADACHE 09/18/2015 JUAN GONZALEZ DO Ot F17.210 NICOTINE DEPENDENCE, CIGARETTES, UNCOMPL 09/18/2015 JUAN GONZALEZ DO Ot N39.0 URINARY TRACT INFECTION, SITE NOT SPECIF 09/18/2015 JUAN GONZALEZ DO Ot R20.2 PARESTHESIA OF SKIN 09/18/2015 JUAN GONZALEZ DO Ot R51 HEADACHE 09/21/2015 SANTINO LOPEZ MD Ot Z53.21 PROC/TRTMT NOT CRD OUT D/T PT LV BEF SEE 09/23/2015 SANTINO LOPEZ MD Ot Z53.21 PROC/TRTMT NOT CRD OUT D/T PT LV BEF SEE 10/03/2015 SANTINO LOPEZ MD Ot Z53.21 PROC/TRTMT NOT CRD OUT D/T PT LV BEF SEE 10/17/2015 NWAGWU, ISIDORE O CRUISE COORDINATOR Ot 745.5 10/17/2015 NWAGWU, ISIDORE O CRUISE COORDINATOR Ot 780.4 10/17/2015 NWAGWU, ISIDORE O CRUISE COORDINATOR Ot 780.79 10/17/2015 NWAGWU, ISIDORE O CRUISE COORDINATOR Ot 785.1 10/17/2015 NWAGWU, ISIDORE O CRUISE COORDINATOR Ot 786.50 10/17/2015 NWAGWU, ISIDORE O CRUISE COORDINATOR Ot V12.54 10/17/2015 GERI FISCHER, KADIE Richardson Ot R40.4 TRANSIENT ALTERATION OF AWARENESS 10/17/2015 [...] 10/17/2015 KENYATTA COLEMAN MD Ot Z79.899 OTHER LONGTERM (CURRENT) DRUG THERAPY 10/17/2015 KENYATTA COLEMAN MD Ot Z86.73 PRSNL HX OF TIA (TIA), AND CEREB INFRC W 10/17/2015 JOHN FISCHER, SANTINO Andrews Ot Z53.21 PROC/TRTMT NOT CRD OUT D/T PT LV BEF SEE 10/21/2015 KADIE NEVAREZ MD Ot R16.1 SPLENOMEGALY, NOT ELSEWHERE CLASSIFIED 10/21/2015 KADIE NEVAREZ MD Ot R16.1 SPLENOMEGALY, NOT ELSEWHERE CLASSIFIED 10/28/2015 KADIE NEVAREZ MD, Ot R16.1 SPLENOMEGALY, NOT ELSEWHERE CLASSIFIED 11/20/2015 LAWRENCE WHITESIDE CRUISE COORDINATOR Ot J06.9 ACUTE UPPER RESPIRATORY INFECTION, UNSPE 11/20/2015 LAWRENCE WHITESIDE CRUISE COORDINATOR Ot J40 BRONCHITIS, NOT SPECIFIED ACUTE OR CH 11/20/2015 LAWRENCE WHITESIDE CRUISE COORDINATOR Ot R05 COUGH 11/24/2015 LAWRENCE WHITESIDE CRUISE COORDINATOR Ot J06.9 ACUTE UPPER RESPIRATORY INFECTION, UNSPE 11/24/2015 LAWRENCE WHITESIDE CRUISE COORDINATOR Ot J40 BRONCHITIS, NOT SPECIFIED ACUTE OR CH 11/24/2015 LAWRENCE WHITESIDE CRUISE COORDINATOR Ot R05 COUGH 12/31/2015 NWAGWU, ISIDORE O CRUISE COORDINATOR Ot 745.5 12/31/2015 NWAGWU, ISIDORE O CRUISE COORDINATOR Ot 780.4 12/31/2015 NWAGWU, ISIDORE O CRUISE COORDINATOR Ot 780.79 12/31/2015 NWAGWU, ISIDORE O CRUISE COORDINATOR Ot 785.1 12/31/2015 NWAGWU, ISIDORE O CRUISE COORDINATOR Ot 786.50 12/31/2015 NWAGWU, ISIDORE O CRUISE COORDINATOR Ot V12.54 12/31/2015 KADIE NEVAREZ MD Ot R40.4 TRANSIENT ALTERATION OF AWARENESS 12/31/2015 KENYATTA COLEMAN MD Ot D64.9 ANEMIA, UNSPECIFIED 12/31/2015 KENYATTA COLEMAN MD Ot E11.9 TYPE 2 DIABETES MELLITUS WITHOUT COMPLIC 12/31/2015 KENYATTA COLEMAN MD Ot E66.9 OBESITY, UNSPECIFIED 12/31/2015 KNEYATTA COLEMAN MD Ot F17.210 NICOTINE DEPENDENCE, CIGARETTES, UNCOMPL 12/31/2015 KENYATTA COLEMAN MD Ot I51.9 HEART DISEASE, UNSPECIFIED 12/31/2015 KENYATTA COLEMAN MD Ot M54.5 LOW BACK PAIN 12/31/2015 KENYATTA COLEMAN MD Ot Z79.899 OTHER FLOUR MIXER (CURRENT) DRUG THERAPY 12/31/2015 JARED FISCHER, KENYATTA Andrews Ot Z86.73 PRSNL HX OF TIA (TIA), AND CEREB INFRC W 12/31/2015 GERI FISCHER, KADIE Richardson Ot R16.1 SPLENOMEGALY, NOT ELSEWHERE CLASSIFIED 12/31/2015 NWAGWU, ISIDORE O CRUISE COORDINATOR Ot 745.5 12/31/2015 NWAGWU, ISIDORE O CRUISE COORDINATOR Ot 780.4 12/31/2015 NWAGWU, ISIDORE O CRUISE COORDINATOR Ot 780.79 12/31/2015 NWAGWU, ISIDORE O CRUISE COORDINATOR Ot 785.1 12/31/2015 NWAGWU, ISIDORE O CRUISE COORDINATOR Ot 786.50 12/31/2015 NWAGWU, ISIDORE O CRUISE COORDINATOR Ot V12.54 12/31/2015 KENYATTA COLEMAN MD Ot [...] 12/31/2015 KENYATTA COLEMAN MD Ot Z79.899 OTHER LONGTERM (CURRENT) DRUG THERAPY 12/31/2015 KENYATTA COLEMAN MD Ot Z86.73 PRSNL HX OF TIA (TIA), AND CEREB INFRC W 12/31/2015 NWAGWU, ISIDORE O CRUISE COORDINATOR Ot 745.5 12/31/2015 NWAGWU, ISIDORE O CRUISE COORDINATOR Ot 780.4 12/31/2015 NWAGWU, ISIDORE O CRUISE COORDINATOR Ot 780.79 12/31/2015 NWAGWU, ISIDORE O CRUISE COORDINATOR Ot 785.1 12/31/2015 NWAGWU, ISIDORE O CRUISE COORDINATOR Ot 786.50 12/31/2015 NWAGWU, ISIDORE O CRUISE COORDINATOR Ot V12.54 12/31/2015 JARED FISCHER KENYATTA Darryl Ot D64.9 ANEMIA, UNSPECIFIED 12/31/2015 JARED FISCHER KENYATTA Darryl Ot E11.9 TYPE 2 DIABETES MELLITUS WITHOUT COMPLIC 12/31/2015 JARED FISCHER KENYATTA Darryl Ot E66.9 OBESITY, UNSPECIFIED 12/31/2015 JARED FISCHER KENYATTA Andrews Ot F17.210 NICOTINE DEPENDENCE, CIGARETTES, UNCOMPL 12/31/2015 JARED FISCHER KENYATTA Darryl Ot I51.9 HEART DISEASE, UNSPECIFIED 12/31/2015 JARED FISCHER KENYATTA Darryl Ot M54.5 LOW BACK PAIN 12/31/2015 JARED FISCHER KENYATTA Andrews Ot Z79.899 OTHER LONGTERM (CURRENT) DRUG THERAPY 12/31/2015 JARED FISCHER KENYATTA Andrews Ot Z86.73 PRSNL HX OF TIA (TIA), AND CEREB INFRC W 01/01/2016 HIEU HINOJOSA MD, Ot E11.9 TYPE 2 DIABETES MELLITUS WITHOUT COMPLIC 01/01/2016 HIEU HINOJOSA MD, Ot E86.9 VOLUME DEPLETION, UNSPECIFIED 01/01/2016 HIEU HINOJOSA MD, Ot F17.210 NICOTINE DEPENDENCE, CIGARETTES, UNCOMPL 01/01/2016 HIEU HINOJOSA MD, Ot F31.9 BIPOLAR DISORDER, UNSPECIFIED 01/01/2016 HIEU HINOJOSA MD, Ot F41.9 ANXIETY DISORDER, UNSPECIFIED 01/01/2016 HIEU HINOJOSA MD, Ot R40.0 SOMNOLENCE 01/01/2016 HIEU HINOJOSA MD, Ot T43.592A POISONING BY OTH ANTIPSYCHOT/NEUROLEPT, 01/01/2016 HIEU HINOJOSA MD Ot Z79.899 OTHER LONGTERM (CURRENT) DRUG THERAPY 01/01/2016 HIEU HINOJOSA MD [...] HINOJOSA MD Ot T43.592A POISONING BY OTH ANTIPSYCHOT/NEUROLEPT, 01/01/2016 HIEU HINOJOSA MD Ot Z79.899 OTHER FLOUR MIXER (CURRENT) DRUG THERAPY 01/01/2016 HIEU HINOJOSA MD Ot Z86.718 PERSONAL HISTORY OF OTHER VENOUS THROMBO 01/02/2016 NWAGWU, ISIDORE O CRUISE COORDINATOR Ot 745.5 01/02/2016 NWAGWU, ISIDORE O CRUISE COORDINATOR Ot 780.4 01/02/2016 NWAGWU, ISIDORE O CRUISE COORDINATOR Ot 780.79 01/02/2016 NWAGWU, ISIDORE O CRUISE COORDINATOR Ot 785.1 01/02/2016 NWAGWU, ISIDORE O CRUISE COORDINATOR Ot 786.50 01/02/2016 NWAGWU, ISIDORE O CRUISE COORDINATOR Ot V12.54 01/02/2016 GERI FISCHER, KADIE Richardson Ot R40.4 TRANSIENT ALTERATION OF AWARENESS 01/02/2016 KENYATTA COLEMAN MD Ot D64.9 ANEMIA, UNSPECIFIED 01/02/2016 JARED FISCHER, KENYATTA Andrews Ot E11.9 TYPE 2 DIABETES MELLITUS WITHOUT COMPLIC 01/02/2016 KENYATTA COLEMAN MD Ot E66.9 OBESITY, UNSPECIFIED 01/02/2016 KENYATTA COLEMAN MD Ot F17.210 NICOTINE DEPENDENCE, CIGARETTES, UNCOMPL 01/02/2016 KENYATTA COLEMAN MD Ot I51.9 HEART DISEASE, UNSPECIFIED 01/02/2016 KENYATTA COLEMAN MD Ot M54.5 LOW BACK PAIN 01/02/2016 KENYATTA COLEMAN MD Ot Z79.899 OTHER LONGTERM (CURRENT) DRUG THERAPY 01/02/2016 KENYATTA COLEMAN MD Ot Z86.73 PRSNL HX OF TIA (TIA), AND CEREB INFRC W 01/02/2016 KADIE NEVAREZ MD Ot R16.1 SPLENOMEGALY, NOT ELSEWHERE CLASSIFIED 04/12/2016 NWAGWU, ISIDORE O CRUISE COORDINATOR Ot 745.5 04/12/2016 NWAGWU, ISIDORE O CRUISE COORDINATOR Ot 780.4 04/12/2016 NWAGWU, ISIDORE O CRUISE COORDINATOR Ot 780.79 04/12/2016 NWAGWU, ISIDORE O CRUISE COORDINATOR Ot 785.1 04/12/2016 NWAGWU, ISIDORE O CRUISE COORDINATOR Ot 786.50 04/12/2016 NWAGWU, ISIDORE O CRUISE COORDINATOR Ot V12.54 04/12/2016 GERI FISCHER, KADIE Richardson Ot R40.4 TRANSIENT ALTERATION OF AWARENESS 04/12/2016 [...] 04/12/2016 KENYATTA COLEMAN MD Ot Z79.899 OTHER FLOUR MIXER (CURRENT) DRUG THERAPY 04/12/2016 KENYATTA COLEMAN MD [...] OTHER EXTERNAL CAUSE STATUS 04/12/2016 JUAN GONZALEZ DO, Ot Z86.718 PERSONAL HISTORY OF OTHER VENOUS THROMBO 04/14/2016 JUAN GONZALEZ DO, Ot E11.9 TYPE 2 DIABETES MELLITUS WITHOUT COMPLIC 04/14/2016 JUAN GONZALEZ DO Ot S93.401A SPRAIN OF UNSPECIFIED LIGAMENT OF RIGHT 04/14/2016 JUAN GONZALEZ DO, Ot S99.911A UNSPECIFIED INJURY OF RIGHT ANKLE, [...] NAUSEA WITH VOMITING, UNSPECIFIED 08/23/2016 Ot Z79.82 LONGTERM ( CURRENT) USE OF ASPIRIN 08/23/2016 Ot Z79.899 OTHER LONGTERM (CURRENT) DRUG THERAPY 08/23/2016 Ot Z86.718 PERSONAL HISTORY OF OTHER VENOUS THROMBO 08/23/2016 Ot Z87.442 PERSONAL HISTORY OF URINARY CALCULI 08/23/2016 Ot Z95.828 PRESENCE OF OTHER VASCULAR IMPLANTS AND 08/23/2016 LAWRENCE WHITESIDE APRN Ot E11.9 TYPE 2 DIABETES MELLITUS WITHOUT COMPLIC 08/23/2016 LAWRENCE WHITESIDE APRN Ot R10.31 RIGHT LOWER QUADRANT PAIN 08/23/2016 LAWRENCE WHITESIDE APRN Ot Z79.82 FLOUR MIXER (CURRENT) USE OF ASPIRIN 08/23/2016 LAWRENCE WHITESIDE APRN Ot Z79.899 OTHER FLOUR MIXER (CURRENT) DRUG THERAPY 08/23/2016 LAWRENCE WHITESIDE CRUISE COORDINATOR Ot Z86.718 PERSONAL HISTORY OF OTHER VENOUS THROMBO 08/24/2016 LAWRENCE WHITESIDE APRN Ot E11.9 TYPE 2 DIABETES MELLITUS WITHOUT COMPLIC 08/24/2016 LAWRENCE WHITESIDE CRUISE COORDINATOR Ot R10.31 RIGHT LOWER QUADRANT PAIN 08/24/2016 LAWRENCE WHITESIDE APRN Ot Z79.82 FLOUR MIXER (CURRENT) USE OF ASPIRIN 08/24/2016 LAWRENCE WHITESIDE APRN Ot Z79.899 OTHER FLOUR MIXER (CURRENT) DRUG THERAPY 08/24/2016 LAWRENCE WHITESIDE APRN Ot Z86.718 PERSONAL HISTORY OF OTHER VENOUS THROMBO 08/25/2016 LAWRENCE WHITESIDE APRN Ot E11.9 TYPE 2 DIABETES MELLITUS WITHOUT COMPLIC 08/25/2016 LAWRENCE WHITESIDE APRN Ot R10.31 RIGHT LOWER QUADRANT PAIN 08/25/2016 LAWRENCE WHITESIDE APRN Ot Z79.82 FLOUR MIXER (CURRENT) USE OF ASPIRIN 08/25/2016 LAWRENCE WHITESIDE APRN Ot Z79.899 OTHER LONGTERM (CURRENT) DRUG THERAPY 08/25/2016 LAWRENCE WHITESIDE APRN [...] ANOT 11/22/2016 LAWRENCE WHITESIDE APRN Ot Z79.82 LONGTERM (CURRENT) USE OF ASPIRIN 11/22/2016 LAWRENCE WHITESIDE APRN Ot Z82.49 FAMILY HX OF [place] HEART DIS AND OTH DI 11/22/2016 LAWRENCE WHITESIDE CRUISE COORDINATOR Ot Z86.718 PERSONAL HISTORY OF OTHER VENOUS THROMBO 11/22/2016 LAWRENCE WHITESIDE CRUISE COORDINATOR Ot Z86.73 PRSNL HX OF TIA (TIA), [...] PARESTHESIA OF SKIN 01/27/2017 MARIA ELENA MORA MD, Ot R51 HEADACHE 01/27/2017 MARIA ELENA MORA MD, Ot Z77.22 CNTCT W AND EXPSR TO ENVIRON TOBACCO SMO 01/27/2017 MARIA ELENA MORA MD Ot Z79.82 FLOUR MIXER (CURRENT) USE OF ASPIRIN 01/27/2017 MARIA ELENA MORA MD, Ot Z82.49 FAMILY HX OF [place] HEART DIS AND OTH DI 01/27/2017 MARIA ELENA MORA MD, Ot Z86.718 PERSONAL HISTORY OF OTHER VENOUS THROMBO 01/27/2017 MARIA ELENA MORA MD, Ot Z86.73 PRSNL HX OF TIA (TIA), AND CEREB INFRC W 01/27/2017 MARIA ELENA MORA MD, Ot Z87.19 PERSONAL HISTORY OF OTHER DISEASES OF TH 01/27/2017 MARIA ELENA MORA MD, Ot Z87.442 PERSONAL HISTORY OF URINARY CALCULI 01/27/2017 MARIA ELENA MORA MD Ot Z98.51 TUBAL LIGATION STATUS 01/31/2017 MARIA [...] 01/31/2017 MARIA ELENA MORA MD, Ot Z79.82 FLOUR MIXER (CURRENT) USE OF ASPIRIN 01/31/2017 MARIA ELENA [...] DISEASES OF TH 01/31/2017 MARIA ELENA MORA MD, Ot Z87.442 PERSONAL HISTORY OF URINARY CALCULI 01/31/2017 MARIA ELENA MORA MD, Ot Z98.51 TUBAL LIGATION STATUS 03/24/2017 LAWRENCE [...] CONTRACEPTI 03/24/2017 LAWRENCE WHITESIDE APRN Ot Z79.82 LONGTERM (CURRENT) USE OF ASPIRIN 03/24/2017 LAWRENCE WHITESIDE [...] SANTINO LOPEZ MD Ot Y92.002 BATHRM OF UNS NON-INSTITUT RESDNCE SNGL 04/17/2017 SANTINO LOPEZ MD Ot Z77.22 CNTCT W AND EXPSR TO ENVIRON TOBACCO SMO 04/17/2017 SANTINO LOPEZ MD Ot Z82.49 FAMILY HX OF ISCHE[place] HEART DIS AND OTH DI 04/17/2017 SANTINO LOPEZ MD, Ot Z86.718 PERSONAL HISTORY OF OTHER VENOUS THROMBO 04/17/2017 SANTINO LOPEZ MD, Ot Z86.73 PRSNL HX OF TIA (TIA), AND CEREB INFRC W 04/17/2017 SANTINO LOPEZ MD, Ot Z87.19 PERSONAL HISTORY OF OTHER DISEASES OF TH 04/17/2017 SANTINO LOPEZ MD Ot Z87.442 PERSONAL HISTORY OF URINARY CALCULI 04/17/2017 SANTINO LOPEZ MD Ot Z95.828 PRESENCE OF OTHER VASCULAR IMPLANTS AND 04/17/2017 SANTINO LOPEZ MD Ot Z97.5 PRESENCE OF (INTRAUTERINE) CONTRACEPTIVE 04/17/2017 SANTION LOPEZ MD, Ot Z98.51 TUBAL LIGATION STATUS 04/19/2017 SANTINO [...] OF OTHER VENOUS THROMBO 04/19/2017 SANTINO LOPEZ MD, Ot Z86.73 PRSNL HX OF TIA (TIA), AND CEREB INFRC W 04/19/2017 SANTINO LOPEZ MD, Ot Z87.19 PERSONAL HISTORY OF OTHER DISEASES OF TH 04/19/2017 SANTINO LOPEZ MD, Ot Z87.442 PERSONAL HISTORY OF URINARY CALCULI 04/19/2017 SANTINO LOPEZ MD, Ot Z95.828 PRESENCE OF OTHER VASCULAR IMPLANTS AND 04/19/2017 SANTINO LOPEZ MD, Ot Z97.5 PRESENCE OF (INTRAUTERINE) CONTRACEPTIVE 04/19/2017 SANTINO LOPEZ MD, Ot Z98.51 TUBAL LIGATION STATUS 06/14/2017 JUAN GONZALEZ DO Ot E11.9 TYPE 2 DIABETES MELLITUS WITHOUT COMPLIC 06/14/2017 JUAN GONZALEZ DO Ot F17.210 NICOTINE DEPENDENCE, CIGARETTES, UNCOMPL 06/14/2017 JUAN GONZALEZ DO Ot F32.9 MAJOR DEPRESSIVE DISORDER, SINGLE EPISOD 06/14/2017 JUAN GONZALEZ DO, Ot F41.9 ANXIETY DISORDER, UNSPECIFIED 06/14/2017 JUAN GONZALEZ DO Ot F43.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 DISORDER, UNSPECIF 06/14/2017 JUAN GONZALEZ DO Ot F90.9 ATTENTION-DEFICIT HYPERACTIVITY DISORDER 06/14/2017 JUAN GONZALEZ DO Ot G89.29 OTHER CHRONIC PAIN 06/14/2017 JUAN GONZALEZ DO Ot I25.10 ATHSCL HEART DISEASE OF [place] CORONARY 06/14/2017 JUAN GONZALEZ DO Ot J45.909 UNSPECIFIED ASTHMA, UNCOMPLICATED 06/14/2017 JUAN GONZALEZ DO Ot M54.5 LOW BACK PAIN 06/14/2017 JUAN GONZALEZ DO Ot S39.012A STRAIN OF MUSCLE, FASCIA AND TENDON OF L 06/14/2017 JUAN GONZALEZ DO Ot W06.XXXA FALL FROM BED, INITIAL ENCOUNTER 06/14/2017 JUAN GONZALEZ DO, Ot W22.8XXA STRIKING AGAINST OR STRUCK BY OTHER OBJE 06/14/2017 JUAN GONZALEZ DO, Ot Z82.49 FAMILY HX OF ISCHEM HEART DIS AND OTH DI 06/14/2017 JUAN GONZALEZ DO, Ot Z86.718 PERSONAL HISTORY OF OTHER VENOUS THROMBO 06/14/2017 JUAN GONZALEZ DO Ot Z86.73 PRSNL HX OF TIA (TIA), AND CEREB INFRC W 06/14/2017 JUAN GONZALEZ DO Ot Z87.442 PERSONAL HISTORY [...] TYPE 2 DIABETES MELLITUS WITHOUT COMPLIC 06/16/2017 JUAN GONZALEZ DO Ot F17.210 NICOTINE DEPENDENCE, CIGARETTES, UNCOMPL 06/16/2017 LISA JUAN HURTADO Ot F32.9 MAJOR DEPRESSIVE DISORDER, SINGLE EPISOD 06/16/2017 LISA JUAN HURTADO Ot F41.9 ANXIETY DISORDER, UNSPECIFIED 06/16/2017 JUAN GONZALEZ DO, Ot F43.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 DISORDER, UNSPECIF 06/16/2017 JUAN GONZALEZ DO Ot F90.9 ATTENTION-DEFICIT HYPERACTIVITY DISORDER 06/16/2017 LISA JUAN HURTADO Ot G89.29 OTHER CHRONIC PAIN 06/16/2017 JUAN GONZALEZ DO Ot I25.10 ATHSCL HEART DISEASE OF [place] CORONARY 06/16/2017 JUAN GONZALEZ DO Ot J45.909 UNSPECIFIED ASTHMA, UNCOMPLICATED 06/16/2017 JUAN GONZALEZ DO Ot M54.5 LOW BACK PAIN 06/16/2017 JUAN GONZALEZ DO Ot S39.012A STRAIN OF MUSCLE, FASCIA AND TENDON OF L 06/16/2017 JUAN GONZALEZ DO Ot W06.XXXA FALL FROM BED, INITIAL ENCOUNTER 06/16/2017 JUAN GONZALEZ DO Ot W22.8XXA STRIKING AGAINST OR STRUCK BY OTHER OBJE 06/16/2017 JUAN GONZALEZ DO Ot Z82.49 FAMILY HX OF ISCHEM HEART DIS AND OTH DI 06/16/2017 LISA HURTADO JUAN Darryl Ot Z86.718 PERSONAL HISTORY OF OTHER VENOUS THROMBO 06/16/2017 LISA JUAN Darryl Ot Z86.73 PRSNL HX OF TIA (TIA), AND CEREB INFRC W 06/16/2017 LISA JUAN Darryl Ot Z87.442 PERSONAL HISTORY OF URINARY CALCULI 06/16/2017 LISA JUAN Ot Z88.0 ALLERGY STATUS TO PENICILLIN 06/16/2017 LISA JUAN Ot Z88.2 ALLERGY STATUS TO SULFONAMIDES STATUS 06/16/2017 LISA JUAN Darryl Ot Z88.5 ALLERGY STATUS TO NARCOTIC AGENT STATUS 06/16/2017 LISA JUAN K Ot Z90.89 ACQUIRED ABSENCE OF OTHER ORGANS 06/16/2017 LISA JUAN Darryl Ot Z91.040 LATEX ALLERGY STATUS 06/16/2017 LISA JUAN Darryl Ot Z98.51 TUBAL LIGATION STATUS 07/31/2017 NWAGWU, ISIDORE O CRUISE COORDINATOR Ot 745.5 07/31/2017 NWAGWU, ISIDORE O CRUISE COORDINATOR Ot 780.4 07/31/2017 NWAGWU, ISIDORE O CRUISE COORDINATOR Ot 780.79 07/31/2017 NWAGWU, ISIDORE O CRUISE COORDINATOR Ot 785.1 07/31/2017 NWAGWU, ISIDORE O CRUISE COORDINATOR Ot 786.50 07/31/2017 NWAGWU, ISIDORE O CRUISE COORDINATOR Ot V12.54 07/31/2017 GERI FISCHER, KADIE Richardson [...] 07/31/2017 KENYATTA COLEMAN MD Ot Z79.899 OTHER LONGTERM (CURRENT) DRUG THERAPY 07/31/2017 KENYATTA COLEMAN MD Ot Z86.73 PRSNL HX OF TIA (TIA), AND CEREB INFRC W 07/31/2017 GERI FISCHER, KADIE Richardson Ot R16.1 SPLENOMEGALY, NOT ELSEWHERE CLASSIFIED 08/01/2017 NWAGWU, ISIDORE O CRUISE COORDINATOR Ot 745.5 08/01/2017 NWAGWU, ISIDORE O CRUISE COORDINATOR Ot 780.4 08/01/2017 NWAGWU, ISIDORE O CRUISE COORDINATOR Ot 780.79 08/01/2017 NWAGWU, ISIDORE O CRUISE COORDINATOR Ot 785.1 08/01/2017 NWAGWU, ISIDORE O CRUISE COORDINATOR Ot 786.50 08/01/2017 NWAGWU, ISIDORE O CRUISE COORDINATOR Ot V12.54 08/01/2017 KENYATTA COLEMAN MD Ot D64.9 ANEMIA, UNSPECIFIED 08/01/2017 KENYATTA COLEMAN MD Ot E11.9 TYPE 2 DIABETES MELLITUS WITHOUT COMPLIC 08/01/2017 KENYATTA COLEMAN MD Ot E66.9 OBESITY, UNSPECIFIED 08/01/2017 KENYATTA COLEMAN MD Ot F17.210 NICOTINE DEPENDENCE, CIGARETTES, UNCOMPL 08/01/2017 KENYATTA COLEMAN MD Ot I51.9 HEART DISEASE, UNSPECIFIED 08/01/2017 KENYATTA COLEMAN MD Ot M54.5 LOW BACK PAIN 08/01/2017 KENYATTA COLEMAN MD Ot Z79.899 OTHER FLOUR MIXER (CURRENT) DRUG THERAPY 08/01/2017 KENYATTA COLEMAN MD Ot Z86.73 PRSNL HX [...] PERSONAL HISTORY OF OTHER DISEASES OF TH 08/02/2017 MARYLOU MOLINA Ot Z87.442 PERSONAL HISTORY [...] PERSONAL HISTORY OF OTHER DISEASES OF TH 08/17/2017 MARYLOU MOLINA Ot Z87.442 PERSONAL HISTORY [...] Z87.19 PERSONAL HISTORY OF OTHER DISEASES OF 08/19/2017 MARYLOU MOLINA Ot Z87.442 PERSONAL HISTORY OF URINARY CALCULI 08/19/2017 MARYLOU MOLINA Ot Z88.0 ALLERGY STATUS TO PENICILLIN 08/19/2017 MARYLOU MOLINA Ot Z88.2 ALLERGY STATUS TO SULFONAMIDES STATUS 08/19/2017 MARYLOU MOLINA Ot Z91.040 LATEX ALLERGY STATUS 08/19/2017 MARYLOU MOLINA Ot Z98.51 TUBAL LIGATION STATUS 08/19/2017 NWAGWU, ISIDORE O CRUISE COORDINATOR Ot 745.5 08/19/2017 NWAGWU, ISIDORE O CRUISE COORDINATOR Ot 780.4 08/19/2017 NWAGWU, ISIDORE O CRUISE COORDINATOR Ot 780.79 08/19/2017 NWAGWU, ISIDORE O CRUISE COORDINATOR Ot 785.1 08/19/2017 NWAGWU, ISIDORE O CRUISE COORDINATOR Ot 786.50 08/19/2017 NWAGWU, ISIDORE O CRUISE COORDINATOR Ot V12.54 08/19/2017 KADIE NEVAREZ MD Ot [...] 08/19/2017 KENYATTA COLEMAN MD Ot Z79.899 OTHER FLOUR MIXER (CURRENT) DRUG THERAPY 08/19/2017 KENYATTA COLEMAN MD Ot Z86.73 PRSNL HX OF TIA (TIA), AND CEREB INFRC W 08/19/2017 KADIE NEVAREZ MD Ot R16.1 SPLENOMEGALY, NOT ELSEWHERE CLASSIFIED 08/22/2017 NWAGWU, ISIDORE O CRUISE COORDINATOR Ot 745.5 08/22/2017 NWAGWU, ISIDORE O CRUISE COORDINATOR Ot 780.4 08/22/2017 NWAGWU, ISIDORE O CRUISE COORDINATOR Ot 780.79 08/22/2017 NWAGWU, ISIDORE O CRUISE COORDINATOR Ot 785.1 08/22/2017 NWAGWU, ISIDORE O CRUISE COORDINATOR Ot 786.50 08/22/2017 NWAGWU, ISIDORE O CRUISE COORDINATOR Ot V12.54 08/22/2017 KADIE NEVAREZ MD Ot [...] 08/22/2017 KENYATTA COLEMAN MD Ot Z79.899 OTHER FLOUR MIXER (CURRENT) DRUG THERAPY 08/22/2017 KENYATTA COLEMAN MD Ot Z86.73 PRSNL HX OF TIA (TIA), AND CEREB INFRC W 08/22/2017 KADIE NEVAREZ MD Ot R16.1 SPLENOMEGALY, NOT ELSEWHERE CLASSIFIED 08/22/2017 NWAGWU, ISIDORE O CRUISE COORDINATOR Ot 745.5 08/22/2017 NWAGWU, ISIDORE O CRUISE COORDINATOR Ot 780.4 08/22/2017 NWAGWU, ISIDORE O CRUISE COORDINATOR Ot 780.79 08/22/2017 NWAGWU, ISIDORE O CRUISE COORDINATOR Ot 785.1 08/22/2017 NWAGWU, ISIDORE O CRUISE COORDINATOR Ot 786.50 08/22/2017 NWAGWU, ISIDORE O CRUISE COORDINATOR Ot V12.54 08/22/2017 KADIE NEVAREZ MD Ot [...] 08/22/2017 KENYATTA COLEMAN MD Ot Z79.899 OTHER LONGTERM (CURRENT) DRUG THERAPY 08/22/2017 KENYATTA COLEMAN MD Ot Z86.73 PRSNL HX OF TIA (TIA), AND CEREB INFRC W 08/22/2017 KADIE NEVAREZ MD Ot R16.1 SPLENOMEGALY, NOT ELSEWHERE CLASSIFIED 08/24/2017 NWAGWU, ISIDORE O CRUISE COORDINATOR Ot 745.5 08/24/2017 NWAGWU, ISIDORE O CRUISE COORDINATOR Ot 780.4 08/24/2017 NWAGWU, ISIDORE O CRUISE COORDINATOR Ot 780.79 08/24/2017 NWAGWU, ISIDORE O CRUISE COORDINATOR Ot 785.1 08/24/2017 NWAGWU, ISIDORE O CRUISE COORDINATOR Ot 786.50 08/24/2017 NWAGWU, ISIDORE O CRUISE COORDINATOR Ot V12.54 08/24/2017 KENYATTA COLEMAN MD Ot D64.9 ANEMIA, UNSPECIFIED 08/24/2017 KENYATTA COLEMAN MD Ot E11.9 TYPE 2 DIABETES MELLITUS WITHOUT COMPLIC 08/24/2017 KENYATTA COLEMAN MD Ot E66.9 OBESITY, UNSPECIFIED 08/24/2017 KENYATTA COLEMAN MD Ot F17.210 NICOTINE DEPENDENCE, CIGARETTES, UNCOMPL 08/24/2017 KENYATTA COLEMAN MD Ot I51.9 HEART DISEASE, UNSPECIFIED 08/24/2017 KENYATTA COLEMAN MD Ot M54.5 LOW BACK PAIN 08/24/2017 KENYATTA COLEMAN MD Ot Z79.899 OTHER LONGTERM (CURRENT) DRUG THERAPY 08/24/2017 KENYATTA COLEMAN MD Ot Z86.73 PRSNL HX OF TIA (TIA), AND CEREB INFRC W 08/24/2017 SHRAVAN WALSH DO Ot K92.1 MELENA 08/24/2017 SHRAVAN WALSH DO Ot Z01.818 ENCOUNTER FOR OTHER PREPROCEDURAL EXAMIN 08/25/2017 SHRAVAN WALSH DO Ot K92.1 MELENA 08/25/2017 SHRAVAN WALSH DO Ot Z01.818 ENCOUNTER FOR OTHER PREPROCEDURAL EXAMIN 08/25/2017 SHRAVAN WALSH DO Ej Ot K92.1 MELENA 08/25/2017 SHRAVAN WALSH DO Ej Ot Z01.818 ENCOUNTER FOR OTHER PREPROCEDURAL EXAMIN 08/25/2017 RIDGE MICHAEL [employer] MECHANIC Ot 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 08/25/2017 RIDGE MICHAEL [employer] HE[employer] MECHANIC Ot Q21.1 ATRIAL SEPTAL DEFECT 08/25/2017 RIDGE MICHAEL [employer] MECHANIC Ot R00.2 PALPITATIONS 08/25/2017 RIDGE MICHAEL [employer] MECHANIC Ot R06.02 SHORTNESS OF BREATH 08/26/2017 SKIP FISCHER FACC, BONI FACP CCDS Ot E66.9 OBESITY, UNSPECIFIED 08/26/2017 SKIP FISCHER FACC, ALI FACP CCDS Ot H91.90 UNSPECIFIED HEARING LOSS, UNSPECIFIED EA 08/26/2017 SKIP FISCHER FACC, BONI FACP CCDS Ot N92.0 EXCESSIVE AND FREQUENT MENSTRUATION WITH 08/26/2017 SKIP FISCHER FACC, BONI FACP CCDS Ot R00.2 PALPITATIONS 08/26/2017 SKIP FISCHER FACC, ALI FACP CCDS Ot Z68.41 BODY MASS INDEX (BMI) 40.0-44.9, ADULT 08/26/2017 SKIP FISCHER FACC, ALI FACP CCDS Ot Z86.73 PRSNL HX OF TIA (TIA), AND CEREB INFRC W 08/26/2017 SKIP FISCHER FACC, ALI FACP CCDS Ot Z88.0 ALLERGY STATUS TO PENICILLIN 08/26/2017 SKIP FISCHER FACC, BONI FACP CCDS Ot Z88.2 ALLERGY STATUS TO SULFONAMIDES STATUS 08/26/2017 SKIP FISCHER FACC, ALI FACP CCDS Ot Z88.5 ALLERGY STATUS TO NARCOTIC AGENT STATUS 08/26/2017 SKIP FISCHER FACC, ALI FACP CCDS Ot E66.9 OBESITY, UNSPECIFIED 08/26/2017 SKIP FISCHER FACC, ALI FACP CCDS Ot H91.90 UNSPECIFIED HEARING LOSS, UNSPECIFIED EA 08/26/2017 SKIP FISCHER FACC, ALI FACP CCDS Ot N92.0 EXCESSIVE AND FREQUENT MENSTRUATION WITH 08/26/2017 SKIP FISCHER FACC, ALI FACP CCDS Ot R00.2 PALPITATIONS 08/26/2017 SKIP FISCHER FACC, ALI FACP CCDS Ot Z68.41 BODY MASS INDEX (BMI) 40.0-44.9, ADULT 08/26/2017 SKIP FISCHER FACC, BONI FACP CCDS Ot Z86.73 PRSNL HX OF TIA (TIA), AND CEREB INFRC W 08/26/2017 SKIP FISCHER FACC, ALI FACP CCDS Ot Z88.0 ALLERGY STATUS TO PENICILLIN 08/26/2017 SKIP FISCHER FACC, BONI FACP CCDS Ot Z88.2 ALLERGY STATUS TO SULFONAMIDES STATUS 08/26/2017 SKIP FISCHER FACC, ALI FACP CCDS Ot Z88.5 ALLERGY STATUS TO NARCOTIC AGENT STATUS 08/30/2017 SHRAVAN WALSH DO Ot K92.1 MELENA 08/30/2017 SHRAVAN WALSH DO Ot Z01.818 ENCOUNTER FOR OTHER PREPROCEDURAL EXAMIN 08/30/2017 SHRAVAN WALSH DO Ot E11.9 TYPE 2 DIABETES MELLITUS WITHOUT COMPLIC 08/30/2017 SHRAVAN WALSH DO Ot F17.210 NICOTINE DEPENDENCE, CIGARETTES, UNCOMPL 08/30/2017 SHRAVAN WALSH DO Ot G40.909 EPILEPSY, UNSP, NOT INTRACTABLE, WITHOUT 08/30/2017 SHRAVAN WALSH DO Ot J45.909 UNSPECIFIED ASTHMA, UNCOMPLICATED 08/30/2017 SHRAVAN WALSH DO Ot K62.89 OTHER SPECIFIED DISEASES OF ANUS AND REC 08/30/2017 SHRAVAN WALSH DO Ot K92.1 MELENA 08/30/2017 SHRAVAN WALSH DO Ot Z79.82 LONGTERM (CURRENT) USE OF ASPIRIN 08/30/2017 SHRAVAN WALSH DO Ot Z79.899 OTHER LONGTERM (CURRENT) DRUG THERAPY 08/31/2017 SHRAVAN WALSH DO Ot E11.9 TYPE 2 DIABETES MELLITUS WITHOUT COMPLIC 08/31/2017 SHRAVAN WALSH DO Ot F17.210 NICOTINE DEPENDENCE, CIGARETTES, UNCOMPL 08/31/2017 SHRAVAN WALSH DO Ot G40.909 EPILEPSY, UNSP, NOT INTRACTABLE, WITHOUT 08/31/2017 SHRAVAN WALSH DO Ot J45.909 UNSPECIFIED ASTHMA, UNCOMPLICATED 08/31/2017 SHRAVAN WALSH DO Ot K62.89 OTHER SPECIFIED DISEASES OF ANUS AND REC 08/31/2017 SHRAVAN WALSH DO Ot K92.1 MELENA 08/31/2017 SHRAVAN WALSH DO Ot Z79.82 LONGTERM (CURRENT) USE OF ASPIRIN 08/31/2017 SHRAVAN WALSH DO Ot Z79.899 OTHER LONGTERM (CURRENT) DRUG THERAPY 08/31/2017 SHRAVAN WALSH DO Ot E11.9 TYPE 2 DIABETES MELLITUS WITHOUT COMPLIC 08/31/2017 SHRAVAN WALSH DO Ot F17.210 NICOTINE DEPENDENCE, CIGARETTES, UNCOMPL 08/31/2017 SHRAVAN WALSH DO Ot G40.909 EPILEPSY, UNSP, NOT INTRACTABLE, WITHOUT 08/31/2017 SHRAVAN WALSH DO Ot J45.909 UNSPECIFIED ASTHMA, UNCOMPLICATED 08/31/2017 SHRAVAN WALSH DO Ot K62.89 OTHER SPECIFIED DISEASES OF ANUS AND REC 08/31/2017 SHRAVAN WALSH DO Ot K92.1 MELENA 08/31/2017 SHRAVAN WALSH DO Ot Z79.82 FLOUR MIXER (CURRENT) USE OF ASPIRIN 08/31/2017 SHRAVAN WALSH DO Ot Z79.899 OTHER FLOUR MIXER (CURRENT) DRUG THERAPY 09/04/2017 MAURIZIO THURMAN MD Ot E11.9 TYPE 2 DIABETES MELLITUS WITHOUT COMPLIC 09/04/2017 MAURIZIO THURMAN MD Ot F31.9 BIPOLAR DISORDER, UNSPECIFIED 09/04/2017 MAURIZIO THURMAN MD Ot F41.9 ANXIETY DISORDER, UNSPECIFIED 09/04/2017 MAURIZIO THURMAN MD Ot F90.9 ATTENTION-DEFICIT HYPERACTIVITY DISORDER 09/04/2017 MAURIZIO THURMAN MD Ot G40.909 EPILEPSY, UNSP, NOT INTRACTABLE, WITHOUT 09/04/2017 MAURIZIO THURMAN MD Ot G43.909 MIGRAINE, UNSP, NOT INTRACTABLE, WITHOUT 09/04/2017 MAURIZIO THURMAN MD Ot H54.8 LEGAL BLINDNESS, DEFINED IN [place] 09/04/2017 MAURIZIO THURMAN MD Ot J45.909 UNSPECIFIED ASTHMA, UNCOMPLICATED 09/04/2017 MAURIZIO THURMAN MD Ot M25.561 PAIN IN RIGHT KNEE 09/04/2017 MAURIZIO THURMAN MD Ot S83.91XA SPRAIN OF UNSPECIFIED SITE OF RIGHT KNEE 09/04/2017 MAURIZIO THURMAN MD Ot X50.0XXA OVEREXERTION FROM STRENUOUS MOVEMENT OR 09/04/2017 MAURIZIO THURMAN MD Ot Y93.01 ACTIVITY, WALKING, MARCHING AND HIKING 09/04/2017 MAURIZIO THURMAN MD Ot Z77.22 CNTCT W AND EXPSR TO ENVIRON TOBACCO SMO 09/04/2017 MAURIZIO THURMAN MD Ot Z86.718 PERSONAL HISTORY OF OTHER VENOUS THROMBO 09/04/2017 MAURIZIO THURMAN MD Ot Z86.73 PRSNL HX OF TIA (TIA), AND CEREB INFRC W 09/04/2017 MAURIZIO THURMAN MD, Ot Z87.442 PERSONAL HISTORY OF URINARY CALCULI 09/04/2017 MAURIZIO THURMAN MD Ot Z88.0 ALLERGY STATUS TO PENICILLIN 09/04/2017 MAURIZIO THURMAN MD Ot Z88.2 ALLERGY STATUS TO SULFONAMIDES STATUS 09/04/2017 MAURIZIO THURMAN MD Ot Z91.040 LATEX ALLERGY STATUS 09/04/2017 MAURIZIO THURMAN MD Ot Z98.51 TUBAL LIGATION STATUS 09/04/2017 JUAN GONZALEZ DO Ot E11.40 TYPE 2 DIABETES MELLITUS WITH DIABETIC N 09/04/2017 JUAN GONZALEZ DO Ot F17.210 NICOTINE DEPENDENCE, CIGARETTES, UNCOMPL 09/04/2017 JUAN GONZALEZ DO Ot F31.9 BIPOLAR DISORDER, UNSPECIFIED 09/04/2017 JUAN GONZALEZ DO Ot F41.9 ANXIETY DISORDER, UNSPECIFIED 09/04/2017 JUAN GONZALEZ DO Ot F43.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 DISORDER, UNSPECIF 09/04/2017 JUAN GONZALEZ DO Ot F90.9 ATTENTION-DEFICIT HYPERACTIVITY DISORDER 09/04/2017 JUAN GONZALEZ DO Ot G40.909 EPILEPSY, UNSP, NOT INTRACTABLE, WITHOUT 09/04/2017 JUAN GONZALEZ DO Ot G43.909 MIGRAINE, UNSP, NOT INTRACTABLE, WITHOUT 09/04/2017 JUAN GONZALEZ DO Ot G89.29 OTHER CHRONIC PAIN 09/04/2017 JUAN GONZALEZ DO Ot J45.909 UNSPECIFIED ASTHMA, UNCOMPLICATED 09/04/2017 JUAN GONZALEZ DO Ot M79.661 PAIN IN RIGHT LOWER LEG 09/04/2017 JUAN GONZALEZ DO Ot Z82.49 FAMILY HX OF ISCHEM HEART DIS AND OTH DI 09/04/2017 JUAN GNOZALEZ DO Darryl Ot Z86.718 PERSONAL HISTORY OF OTHER VENOUS THROMBO 09/04/2017 JUAN GONZALEZ DO Ot Z86.73 PRSNL HX OF TIA (TIA), AND CEREB INFRC W 09/04/2017 JUAN GONZALEZ DO Daryrl Ot Z87.19 PERSONAL HISTORY OF OTHER DISEASES OF TH 09/04/2017 JUAN GONZALEZ DO Darryl Ot Z88.0 ALLERGY STATUS TO PENICILLIN 09/04/2017 JUAN GONZALEZ DO Darryl Ot Z88.2 ALLERGY STATUS TO SULFONAMIDES STATUS 09/04/2017 LISA HURTADO JUAN Darryl Ot Z91.5 PERSONAL HISTORY OF SELF-HARM 09/04/2017 LISA HURTADO JUAN Darryl Ot Z98.51 TUBAL LIGATION STATUS 09/04/2017 JUAN GONZALEZ DO Ot Z98.890 OTHER SPECIFIED POSTPROCEDURAL STATES 09/05/2017 MAURIZIO THURMAN MD Ot E11.9 TYPE 2 DIABETES MELLITUS WITHOUT COMPLIC 09/05/2017 MAURIZIO THURMAN MD Ot F31.9 BIPOLAR DISORDER, UNSPECIFIED 09/05/2017 MAURIZIO THURMAN MD Ot F41.9 ANXIETY DISORDER, UNSPECIFIED 09/05/2017 MAURIZIO THURMAN MD Ot F90.9 ATTENTION-DEFICIT HYPERACTIVITY DISORDER 09/05/2017 MAURIZIO THURMAN MD Ot G40.909 EPILEPSY, UNSP, NOT INTRACTABLE, WITHOUT 09/05/2017 MAURIZIO THURMAN MD Ot G43.909 MIGRAINE, UNSP, NOT INTRACTABLE, WITHOUT 09/05/2017 MAURIZIO THURMAN MD Ot H54.8 LEGAL BLINDNESS, DEFINED IN [place] 09/05/2017 MAURIZIO THURMAN MD Ot J45.909 UNSPECIFIED ASTHMA, UNCOMPLICATED 09/05/2017 MAURIZIO THURMAN MD Ot M25.561 PAIN IN RIGHT KNEE 09/05/2017 MAURIZIO THURMAN MD Ot S83.91XA SPRAIN OF UNSPECIFIED SITE OF RIGHT KNEE 09/05/2017 MAURIZIO THURMAN MD Ot X50.0XXA OVEREXERTION FROM STRENUOUS MOVEMENT OR 09/05/2017 MAURIZIO THURMAN MD Ot Y93.01 ACTIVITY, WALKING, MARCHING AND HIKING 09/05/2017 MAURIZIO THURMAN MD Ot Z77.22 CNTCT W AND EXPSR TO ENVIRON TOBACCO SMO 09/05/2017 MAURIZIO THURMAN MD, Ot Z86.718 PERSONAL HISTORY OF OTHER VENOUS THROMBO 09/05/2017 MAURIZIO THURMAN MD Ot Z86.73 PRSNL HX OF TIA (TIA), AND CEREB INFRC W 09/05/2017 MAURIZIO THURMAN MD, Ot Z87.442 PERSONAL HISTORY OF URINARY CALCULI 09/05/2017 MAURIZIO THURMAN MD, Ot Z88.0 ALLERGY STATUS TO PENICILLIN 09/05/2017 MAURIZIO THURMAN MD Ot Z88.2 ALLERGY STATUS TO SULFONAMIDES STATUS 09/05/2017 MAURIZIO THURMAN MD Ot Z91.040 LATEX ALLERGY STATUS 09/05/2017 MAURIZIO THURMAN MD Ot Z98.51 TUBAL LIGATION STATUS 09/06/2017 JUAN GONZALEZ DO Ot E11.40 TYPE 2 DIABETES MELLITUS WITH DIABETIC N 09/06/2017 JUAN GONZALEZ DO Ot F17.210 NICOTINE DEPENDENCE, CIGARETTES, UNCOMPL 09/06/2017 JUAN GONZALEZ DO Ot F31.9 BIPOLAR DISORDER, UNSPECIFIED 09/06/2017 JUAN GONZALEZ DO Ot F41.9 ANXIETY DISORDER, UNSPECIFIED 09/06/2017 JUAN GONZALEZ DO Ot F43.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 DISORDER, UNSPECIF 09/06/2017 JUAN GONZALEZ DO Ot F90.9 ATTENTION-DEFICIT HYPERACTIVITY DISORDER 09/06/2017 JUAN GONZALEZ DO Ot G40.909 EPILEPSY, UNSP, NOT INTRACTABLE, WITHOUT 09/06/2017 JUAN GONZALEZ DO Ot G43.909 MIGRAINE, UNSP, NOT INTRACTABLE, WITHOUT 09/06/2017 JUAN GONZALEZ DO Ot G89.29 OTHER CHRONIC PAIN 09/06/2017 JUAN GONZALEZ DO Ot J45.909 UNSPECIFIED ASTHMA, UNCOMPLICATED 09/06/2017 JUAN GONZALEZ DO Ot M79.661 PAIN IN RIGHT LOWER LEG 09/06/2017 JUAN GONZALEZ DO Ot Z82.49 FAMILY HX OF ISCHEM HEART DIS AND OTH DI 09/06/2017 JUAN GONZALEZ DO Ot Z86.718 PERSONAL HISTORY OF OTHER VENOUS THROMBO 09/06/2017 JUAN GONZALEZ DO Ot Z86.73 PRSNL HX OF TIA (TIA), AND CEREB INFRC W 09/06/2017 JUAN GONZALEZ DO Ot Z87.19 PERSONAL HISTORY OF OTHER DISEASES OF TH 09/06/2017 JUAN GONZALEZ DO Ot Z88.0 ALLERGY STATUS TO PENICILLIN 09/06/2017 JOSE GONZALEZ DORay Andrews Ot Z88.2 ALLERGY STATUS TO SULFONAMIDES STATUS 09/06/2017 JUAN GONZALEZ DO Ot Z91.5 PERSONAL HISTORY OF SELF-HARM 09/06/2017 JUAN GONZALEZ DO Ot Z98.51 TUBAL LIGATION STATUS 09/06/2017 JUAN GONZALEZ DO Ot Z98.890 OTHER SPECIFIED POSTPROCEDURAL STATES 09/09/2017 RIDGE MICHAEL AUT[employer] HEATER MECHANIC Ot 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 09/09/2017 RIDGE MICHAEL L AUT[employer] HEATER MECHANIC Ot Q21.1 ATRIAL SEPTAL DEFECT 09/09/2017 RIDGE MICHAEL L AUTO HEATER MECHANIC Ot R00.2 PALPITATIONS 09/09/2017 RIDGE MICHAEL L AUT[employer] HEATER MECHANIC Ot R06.02 SHORTNESS OF BREATH 09/09/2017 SKIP FISCHER FACC, BONI FACP CCDS Ot E66.9 OBESITY, UNSPECIFIED 09/09/2017 SKIP FISCHER FACC, ALI FACP CCDS Ot H91.90 UNSPECIFIED HEARING LOSS, UNSPECIFIED EA 09/09/2017 SKIP FISCHER FACC, BONI FACP CCDS Ot N92.0 EXCESSIVE AND FREQUENT MENSTRUATION WITH 09/09/2017 SKIP FISCHER FACC, BONI FACP CCDS Ot R00.2 PALPITATIONS 09/09/2017 SKIP FISCHER FACC, BONI FACP CCDS Ot Z68.41 BODY MASS INDEX (BMI) 40.0-44.9, ADULT 09/09/2017 BONI VALDIVIA MD, FACC FACP CCDS Ot Z86.73 PRSNL HX OF TIA (TIA), AND CEREB INFRC W 09/09/2017 BONI VALDIVIA MD, FACC FACP CCDS Ot Z88.0 ALLERGY STATUS TO PENICILLIN 09/09/2017 SKIP FISCHER FACC, BONI FACP CCDS Ot Z88.2 ALLERGY STATUS TO SULFONAMIDES STATUS 09/09/2017 SKIP FISCHER FACC, ALI FACP CCDS Ot Z88.5 ALLERGY STATUS TO NARCOTIC AGENT STATUS 09/09/2017 MAURIZIO THURMAN MD Ot E11.9 TYPE 2 DIABETES MELLITUS WITHOUT COMPLIC 09/09/2017 MAURIZIO THURMAN MD Ot F31.9 BIPOLAR DISORDER, UNSPECIFIED 09/09/2017 MAURIZIO THURMAN MD Ot F41.9 ANXIETY DISORDER, UNSPECIFIED 09/09/2017 MAURIZIO THURMAN MD Ot F90.9 ATTENTION-DEFICIT HYPERACTIVITY DISORDER 09/09/2017 MAURIZIO THURMAN MD Ot G40.909 EPILEPSY, UNSP, NOT INTRACTABLE, WITHOUT 09/09/2017 MAURIZIO THURMAN MD Ot G43.909 MIGRAINE, UNSP, NOT INTRACTABLE, WITHOUT 09/09/2017 MAURIZIO THURMAN MD Ot H54.8 LEGAL BLINDNESS, DEFINED IN [place] 09/09/2017 MAURIZIO THURMAN MD, Ot J45.909 UNSPECIFIED ASTHMA, UNCOMPLICATED 09/09/2017 MAURIZIO THURMAN MD Ot M25.561 PAIN IN RIGHT KNEE 09/09/2017 MAURIZIO THURMAN MD Ot S83.91XA SPRAIN OF UNSPECIFIED SITE OF RIGHT KNEE 09/09/2017 MAURIZIO THURMAN MD Ot X50.0XXA OVEREXERTION FROM STRENUOUS MOVEMENT OR 09/09/2017 MAURIZIO THURMAN MD Ot Y93.01 ACTIVITY, WALKING, MARCHING AND HIKING 09/09/2017 MAURIZIO THURMAN MD Ot Z77.22 CNTCT W AND EXPSR TO ENVIRON TOBACCO SMO 09/09/2017 MAURIZIO THURMAN MD Ot Z86.718 PERSONAL HISTORY OF OTHER VENOUS THROMBO 09/09/2017 MAURIZIO THURMAN MD Ot Z86.73 PRSNL HX OF TIA (TIA), AND CEREB INFRC W 09/09/2017 MAURIZIO THURMAN MD Ot Z87.442 PERSONAL HISTORY OF URINARY CALCULI 09/09/2017 MAURIZIO THURMAN MD Ot Z88.0 ALLERGY STATUS TO PENICILLIN 09/09/2017 MAURIZIO THURMAN MD Ot Z88.2 ALLERGY STATUS TO SULFONAMIDES STATUS 09/09/2017 MAURIZIO THURMAN MD Ot Z91.040 LATEX ALLERGY STATUS 09/09/2017 MAURIZIO THURMAN MD Ot Z98.51 TUBAL LIGATION STATUS 09/12/2017 JUAN GONZALEZ DO Ot E11.40 TYPE 2 DIABETES MELLITUS WITH DIABETIC N 09/12/2017 JUAN GONZALEZ DO Ot F17.210 NICOTINE DEPENDENCE, CIGARETTES, UNCOMPL 09/12/2017 JUAN GONZALEZ DO Ot F31.9 BIPOLAR DISORDER, UNSPECIFIED 09/12/2017 JUAN GONZALEZ DO Ot F41.9 ANXIETY DISORDER, UNSPECIFIED 09/12/2017 LISA JUAN HURTADO Ot F43.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 DISORDER, UNSPECIF 09/12/2017 LISA JUAN HURTADO Ot F90.9 ATTENTION-DEFICIT HYPERACTIVITY DISORDER 09/12/2017 LISA JUAN HURTADO Ot G40.909 EPILEPSY, UNSP, NOT INTRACTABLE, WITHOUT 09/12/2017 JUAN GONZALEZ DO Ot G43.909 MIGRAINE, UNSP, NOT INTRACTABLE, WITHOUT 09/12/2017 LISA JUAN HURTADO Ot G89.29 OTHER CHRONIC PAIN 09/12/2017 JUAN GONZALEZ DO Ot J45.909 UNSPECIFIED ASTHMA, UNCOMPLICATED 09/12/2017 JUAN GONZALEZ DO Ot M79.661 PAIN IN RIGHT LOWER LEG 09/12/2017 JUAN GONZALEZ DO Ot Z82.49 FAMILY HX OF ISCHEM HEART DIS AND OTH DI 09/12/2017 JUAN GONZALEZ DO Ot Z86.718 PERSONAL HISTORY OF OTHER VENOUS THROMBO 09/12/2017 JUAN GONZALEZ DO Ot Z86.73 PRSNL HX OF TIA (TIA), AND CEREB INFRC W 09/12/2017 JUAN GONZALEZ DO Ot Z87.19 PERSONAL HISTORY OF OTHER DISEASES OF TH 09/12/2017 JUAN GONZALEZ DO Ot Z88.0 ALLERGY STATUS TO PENICILLIN 09/12/2017 JUAN GONZALEZ DO Ot Z88.2 ALLERGY STATUS TO SULFONAMIDES STATUS 09/12/2017 JUAN GONZALEZ DO Ot Z91.5 PERSONAL HISTORY OF SELF-HARM 09/12/2017 JUAN GONZALEZ DO Ot Z98.51 TUBAL LIGATION STATUS 09/12/2017 JUAN GONZALEZ DO Ot Z98.890 OTHER SPECIFIED POSTPROCEDURAL STATES 09/30/2017 Sebastián Stratton W 729.5 PAIN IN LIMB 09/30/2017 Sebastián Stratton W M79.661 PAIN IN RIGHT LOWER LEG 09/30/2017 Sebastián Stratton W V12.51 PERSONAL HISTORY OF VENOUS THROMBOSIS AND EMBOLISM 09/30/2017 Sebastián Stratton Z86.718 PERSONAL HISTORY OF OTHER VENOUS THROMBOSIS AND EMBOLISM 11/20/2017 Ot E11.9 TYPE 2 DIABETES MELLITUS WITHOUT COMPLIC 11/20/2017 Ot F10.129 ALCOHOL ABUSE WITH INTOXICATION, UNSPECI 11/20/2017 Ot F17.210 NICOTINE DEPENDENCE, CIGARETTES, UNCOMPL 11/20/2017 Ot F31.9 BIPOLAR DISORDER, UNSPECIFIED 11/20/2017 Ot F41.9 ANXIETY DISORDER, UNSPECIFIED 11/20/2017 Ot F43.10 POST- TRAUMATIC STRESS DISORDER, UNSPECIF 11/20/2017 Ot F90.9 ATTENTION- DEFICIT HYPERACTIVITY DISORDER 11/20/2017 Ot G40.909 EPILEPSY, UNSP, NOT INTRACTABLE, WITHOUT 11/20/2017 Ot G43.909 MIGRAINE, UNSP, NOT INTRACTABLE, WITHOUT 11/20/2017 Ot 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 11/20/2017 Ot G83.14 MONOPLEGIA OF LOWER LIMB AFFECTING LEFT 11/20/2017 Ot G83.24 MONOPLEGIA OF UPPER LIMB AFFECTING LEFT 11/20/2017 Ot H53.40 UNSPECIFIED VISUAL FIELD DEFECTS 11/20/2017 Ot J45.909 UNSPECIFIED ASTHMA, UNCOMPLICATED 11/20/2017 Ot R29.810 FACIAL WEAKNESS 11/20/2017 Ot Z82.49 FAMILY HX OF ISCHEM HEART DIS AND OTH DI 11/20/2017 Ot Z86.718 PERSONAL HISTORY OF OTHER VENOUS THROMBO 11/20/2017 Ot Z86.73 PRSNL HX OF TIA (TIA), AND CEREB INFRC W 11/20/2017 Ot Z87.19 PERSONAL HISTORY OF OTHER DISEASES OF TH 11/20/2017 Ot Z87.442 PERSONAL HISTORY OF URINARY CALCULI 11/20/2017 Ot Z88.0 ALLERGY STATUS TO PENICILLIN 11/20/2017 Ot Z88.2 ALLERGY STATUS TO SULFONAMIDES STATUS 11/20/2017 Ot Z91.040 LATEX ALLERGY STATUS 11/20/2017 Ot Z91.5 PERSONAL HISTORY OF SELF-HARM 11/20/2017 Ot Z95.828 PRESENCE OF OTHER VASCULAR IMPLANTS AND 11/20/2017 Ot Z97.5 PRESENCE OF ( INTRAUTERINE) CONTRACEPTIVE 11/20/2017 Ot Z98.51 TUBAL LIGATION STATUS 01/04/2018 NWAGWU, ISIDORE O CRUISE COORDINATOR Ot 745.5 01/04/2018 NWAGWU, ISIDORE O CRUISE COORDINATOR Ot 780.4 01/04/2018 NWAGWU, ISIDORE O CRUISE COORDINATOR Ot 780.79 01/04/2018 NWAGWU, ISIDORE O CRUISE COORDINATOR Ot 785.1 01/04/2018 NWAGWU, ISIDORE O CRUISE COORDINATOR Ot 786.50 01/04/2018 NWAGWU, ISIDORE O CRUISE COORDINATOR Ot V12.54 01/04/2018 GERI FISCHER, KADIE Richardson Ot R40.4 TRANSIENT ALTERATION OF AWARENESS 01/04/2018 JARED FISCHER, KENYATTA Andrews Ot D64.9 ANEMIA, UNSPECIFIED 01/04/2018 JARED FISCHER, KENYATTA Andrews Ot E11.9 TYPE 2 DIABETES MELLITUS WITHOUT COMPLIC 01/04/2018 KENYATTA COLEMAN MD Ot E66.9 OBESITY, UNSPECIFIED 01/04/2018 JARED FISCHER, KENYATTA Andrews Ot F17.210 NICOTINE DEPENDENCE, CIGARETTES, UNCOMPL 01/04/2018 JARED FISCHER, KENYATTA Andrews Ot I51.9 HEART DISEASE, UNSPECIFIED 01/04/2018 KENYATTA COLEMAN MD Ot M54.5 LOW BACK PAIN 01/04/2018 JARED FISCHER, KENYATTA Andrews Ot Z79.899 OTHER FLOUR MIXER (CURRENT) DRUG THERAPY 01/04/2018 JARED FISCHER, KENYATTA Andrews Ot Z86.73 PRSNL HX OF TIA (TIA), AND CEREB INFRC W 01/04/2018 GERI FISCHER, KADIE Richardson Ot R16.1 SPLENOMEGALY, NOT ELSEWHERE CLASSIFIED 01/04/2018 BAIMA, RIDGE L AUTO HEATER MECHANIC Ot 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 01/04/2018 BAIMA, RIDGE L AUTO HEATER MECHANIC Ot Q21.1 ATRIAL SEPTAL DEFECT 01/04/2018 BAIMA, RIDGE L AUTO HEATER MECHANIC Ot R00.2 PALPITATIONS 01/04/2018 BAIMA, RIDGE L AUTO HEATER MECHANIC Ot R06.02 SHORTNESS OF BREATH 01/04/2018 SKIP FISCHER FACC, BONI LOZANOP CCDS Ot E66.9 OBESITY, UNSPECIFIED 01/04/2018 SKIP FISCHER FACC, ALI FACP CCDS Ot H91.90 UNSPECIFIED HEARING LOSS, UNSPECIFIED EA 01/04/2018 SKIP FISCHER FAC, ALI FACP CCDS Ot N92.0 EXCESSIVE AND FREQUENT MENSTRUATION WITH 01/04/2018 SKIP FISCHER FAC, ALI FACP CCDS Ot R00.2 PALPITATIONS 01/04/2018 SKIP FISCHER FAC, ALI FACP CCDS Ot Z68.41 BODY MASS INDEX (BMI) 40.0-44.9, ADULT 01/04/2018 SKIP FISCHER FAC, ALI FACP CCDS Ot Z86.73 PRSNL HX OF TIA (TIA), AND CEREB INFRC W 01/04/2018 SKIP FISCHER FAC, ALI FACP CCDS Ot Z88.0 ALLERGY STATUS TO PENICILLIN 01/04/2018 SKIP FISCHER FAC, ALI FACP CCDS Ot Z88.2 ALLERGY STATUS TO SULFONAMIDES STATUS 01/04/2018 SKIP FISCHER [facility], ALI FACP CCDS Ot Z88.5 ALLERGY STATUS TO NARCOTIC AGENT STATUS 01/11/2018 CONNIE SUAREZ CRUISE COORDINATOR Ot N64.52 NIPPLE DISCHARGE Procedures Code Description Performed By Performed On [id number] INSERTION OF INFUSION DEV INTO SUP VENA CAVA, PERC Sonya Lopes MD 03/29/2015 [id number] INSERTION OF INTRALUM DEV INTO INF VENA CAVA, PERC Pb [id number] EXCISION OF RIGHT UPPER LEG SKIN, EXTERNAL APPROAC Miles Ortiz MD 03/29/2015 [id number] REPLACE R LOW LEG SKIN W AUTOL SUB, PART THICK, EX Miles Ortiz MD 03/29/2015 [id number] DIVISION OF R LOW LEG SUBCU/FASCIA, OPEN APPROACH Sonya Lopes MD 03/29/2015 [id number] REPAIR R LOW LEG SUBCU/ FASCIA, OPEN APPROACH Miles Ortiz MD [id number] REPAIR R LOW LEG SUBCU/ FASCIA, PERC APPROACH Sonya Lopes MD [id number] EXCISION OF RIGHT LOWER LEG MUSCLE, OPEN APPROACH Miles Ortiz MD 03/29/2015 [id number] REMOVAL OF EXT FIX FROM R TIBIA, SUPERVISOR SEWER MAINTENANCE APPROACH Sonya Lopes MD 03/29/2015 [id number] REPOSITION RIGHT TIBIA WITH INT FIX, OPEN APPROACH Sonya Lopes MD 03/29/2015 [id number] REPOSITION RIGHT TIBIA WITH EXT FIX, PERC APPROACH Sonya Lopes MD 03/29/2015 [id number] IRRIGATION OF SKIN AND MUCOUS MEMBRANES USING IRRI Sonya Lopes MD 03/29/2015 [id number] MEASURE CARDIAC ELECTR ACTIVITY, GUIDANCE, SUPERVISOR SEW[employer] MAINTENANCE Sonya Lopes MD 03/29/2015 [id number] FLUOROSCOPY OF INF VENA CAVA USING L OSM CONTRAST, Brittani Ambriz MD 03/29/2015 <section xmlns="urn:hl7-org:v3" xmlns:xsi= "http://[email or web address]/2001/XMLSchema-instance"> <templateId root= "[id number]" /> <templateId root= "[id number]" /> <code codeSystemName="LOINC" codeSystem= "[id number]" code="37942-1" displayName="Results" /> <title>Results< /title> <text> <table> <thead> [...] <td>150-400</td> </tr> <tr> <th colspan="10 ">[facility] 09:52</th> </tr> <tr> <td>POTASSIUM</td> <td>4.0 [...] (POC)</td> <td>92 mg/dL</td> <td>70-99</td> </ tr> <tr> <th colspan="10">GLUCOSE (POC) - 04/04/15 11:00</th> </tr> <tr> <td>GLUCOSE (POC)</td> <td>120 mg/dL</ td> <td>70-99</td> </tr> <tr> <th colspan="10"> VANCOMYCIN TROUGH - 04/04/15 12:55</th> </tr> [...] TIME</td> <td>42 sec</td> <td>23-39< /td> </tr> <tr> < colspan="10">CREATININE - 04/07/15 05 :29</th> </tr> <tr> <td>EST GFR (MDRD)</td> <td> > 60 mL/min</td> <td>> 59</td> </tr> <tr> <td>CREATININE</td> <td>0.5 mg/dL</td> <td>0.6-1.0</td> </tr> <tr> <th colspan="10">GLUCOSE (POC) - 04/07/15 06:09</th > </tr> <tr> <td>GLUCOSE (POC)</td> <td>98 mg/dL </td> <td>70-99</td> </tr> <tr> < colspan="10 ">PTT HEPARIN PROTOCOLS - 04/07/15 08:00</th> </tr> <tr> <td>PARTIAL THROMBOPLASTIN TIME</td> <td>142 sec</td> <td>23- 39</td> </tr> <tr> <th colspan="10">GLUCOSE (POC) - 04/07 09:58</th> </tr> <tr> <td>GLUCOSE (POC)</td> <td>93 mg/dL</td> <td>70-99</td> </tr> <tr> < colspan="10">METABOLIC PANEL, BASIC - 04/07/15 10:24</th> </tr> [...] THROMBOPLASTIN TIME</td> <td>98 sec</td> <td>23-39</td> </tr> <tr> < colspan="10">GLUCOSE (POC) - 04/08/15 05:23</th> </tr> <tr> <td>GLUCOSE (POC)</td> <td>97 mg/dL</td> <td>70-99</ td> </tr> <tr> < colspan="10">GLUCOSE (POC) - 04/08/15 11:32</th> </tr> <tr> <td>GLUCOSE (POC)</td> <td >88 mg/dL</td> <td>70-99</td> </tr> <tr> < colspan="10">GLUCOSE (POC) - 04/08/15 13:50</th> </tr> <tr> [...] </tr> <tr> <th colspan="10">METABOLIC PANEL, BASIC - 04/09/ 05:30</th> </tr> <tr> <td>POTASSIUM</td> <td>3.7 mmol/L</td> <td [...] td>PLATELET COUNT</td> <td>Note k/cumm</td> <td>150-400</td> </tr> <tr> < colspan="10">URINALYSIS, ROUTINE - 09:50</th> </tr> <tr> <td>UA [...] <tr> < th colspan="10">Comprehensive metabolic panel - 01/01/16 05:13</th> </tr [...] measurement (mass/volume)</td> <td>3.7 mg/dL</td> <td>2.3-4.7</td> </tr> <tr> < colspan="10"> Magnesium - 01/01/16 05:13</th> </tr> <tr> <td>Magnesium< /td> <td>2.1 mg/dL</td> <td>1.8-2.4</td> </tr> < tr> < colspan="10">Complete blood count (CBC) with automated [...] mass/volume)</td> <td>4.1 g/dL</td> <td>3.2-4.5</td> </ tr> <tr> < colspan="10">Serum or plasma C reactive protein measurement [...] culture</td> <td>NO </td> <td>NRG</td> </tr> <tr> < colspan="10">Chlamydia trachomatis DNA detection by probe and signal amplification method - 03/24/17 01:30</th> </tr> <tr> <td>Chlamydia trachomatis DNA detection by probe and target amplification method</td> <td>Not Detected </td> <td>Not Detected</td> </tr> <tr> < colspan="10">Neisseria gonorrhoeae DNA detection by probe and [...] identification in genital specimen by aerobe culture</td> <td>[id number] </td> <td>NRG</td> </tr> <tr> <th colspan="10"> Microscopic examination by OLGA preparation - 03/24/17 01:30</th> </tr> <tr> <td>Microscopic examination by OLGA preparation</td> <td>TNP </td> <td>NRG</td> </tr> <tr> <th colspan="10">Microscopic examination by wet preparation - 03/24/17 01:30</th> </tr> <tr> <td>WET PREP RESULTS</td> <td>12--/ KD </td> <td>NRG</td> </tr> <tr> <th colspan="10 [...] <td> 0.0 10*3/uL</td> <td>0.0-0.1</td> </tr> <tr> < colspan="10">Complete urinalysis with reflex [...] <td>Myoglobin, serum</td > <td>27.8 ng/mL</td> <td>10.0-92.0</td> </tr> < tr> <th colspan="10">Urine beta human chorionic gonadotropin (hCG) measurement - 08/30/17 08:30</th> </tr> <tr> <td>Urine beta human chorionic gonadotropin (hCG) measurement</td> <td>NEGATIVE < /td> <td>NEGATIVE</td> </tr> <tr> <th colspan= "10">D-Dimer - 09/30/17 13:12</th> </tr> <tr> <td>DDimer </td> <td>190.00 ng/mL</td> <td>21.00-229.00</td> </tr > </tbody> </table> </text> <entry> <organizer moodCode="EVN" classCode="BATTERY"> <templateId root="[id number]" /> <id nullFlavor="NA" /> <code codeSystem="local" code="CBCD" displayName="CBC W/DIFF" /> <statusCode code="completed" /> <component > <observation moodCode="EVN" classCode="OBS"> <templateId root= "[id number]" /> <id nullFlavor="NA" /> < code codeSystem="local" code="EO#" displayName="EOSINOPHIL #" /> < statusCode code="completed" /> <effectiveTime value="" /> <value unit="k/cumm" xsi:type="PQ" value="0.1" /> < referenceRange> <observationRange> <text>0.1-0.5</text> </observationRange> </referenceRange> </observation > </component> <component> <observation moodCode="EVN" classCode="OBS"> <templateId root="216.840.1.065998.01.28.22.4.2" /> <id nullFlavor="NA" /> <code codeSystem="local" code="EO% " displayName="EOSINOPHIL %" /> <statusCode code="completed" /> <effectiveTime value="" /> <value unit="%" xsi: type="PQ" value="1" /> <interpretationCode codeSystem="local" code="*" /> <referenceRange> <observationRange> <text>2- 4</text> </observationRange> </referenceRange> </ observation> </component> <component> <observation moodCode= "EVN" classCode="OBS"> <templateId root="16.840.1.228869.10.4.2 " /> <id nullFlavor="NA" /> <code codeSystem="local" code="GR# " displayName="GRANULOCYTE #" /> <statusCode code="completed" /> <effectiveTime value="" /> <value unit="k/cumm" xsi: type="PQ" value="9.5" /> <interpretationCode codeSystem="local" code="* " /> <referenceRange> <observationRange> <text> 2.0-9.0</text> </observationRange> </referenceRange> </observation> </component> <component> <observation moodCode= "EVN" classCode="OBS"> <templateId root="16.840.1.956229.10.22.4.2 " /> <id nullFlavor="NA" /> <code codeSystem="local" code="GR& #37;" displayName="GRANULOCYTE %" /> <statusCode code="completed" / > <effectiveTime value="" /> <value unit="%" xsi:type="PQ" value="73" /> <referenceRange> < observationRange> <text>50-75</text> </observationRange > </referenceRange> </observation> </component> < component> <observation moodCode="EVN" classCode="OBS"> < templateId root="05.27.840.1.192164.01.28.22.4.2" /> <id nullFlavor="NA " /> <code codeSystem="local" code="LY#" displayName="LYMPHOCYTE #" /> <statusCode code="completed" /> <effectiveTime value= "" /> <value unit="k/cumm" xsi:type="PQ" value="2.7" /> <referenceRange> <observationRange> <text>1.0-4.0 </text> </observationRange> </referenceRange> </ observation> </component> <component> <observation moodCode= "EVN" classCode="OBS"> <templateId root="05.27.840.1.059648.10.22.4.2 " /> <id nullFlavor="NA" /> <code codeSystem="local" code="LY& #37;" displayName="LYMPHOCYTE %" /> <statusCode code="completed" / > <effectiveTime value="" /> <value unit="%" xsi:type="PQ" value="20" /> <referenceRange> < observationRange> <text>20-30</text> </observationRange > </referenceRange> </observation> </component> < component> <observation moodCode="EVN" classCode="OBS"> < templateId root="05.27.840.1.496016.10.2022.4.2" /> <id nullFlavor="NA " /> <code codeSystem="local" code="MCH" displayName="MEAN CELL HGB" / > <statusCode code="completed" /> <effectiveTime value= "" /> <value unit="pg" xsi:type="PQ" value="26.1" /> <interpretationCode codeSystem="local" code="*" /> <referenceRange > <observationRange> <text>27.0-33.0</text> < /observationRange> </referenceRange> </observation> </ component> <component> <observation moodCode="EVN" classCode="OBS"> <templateId root="05.27.840.1.050948.10.22.4.2" /> <id nullFlavor="NA" /> <code codeSystem="local" code="MCHC" displayName= "MEAN CELL HGB CONCENTRATION" /> <statusCode code="completed" /> <effectiveTime value="" /> <value unit="g/dL" xsi:type= "PQ" value="31.4" /> <interpretationCode codeSystem="local" code="*" / > <referenceRange> <observationRange> <text> 32.0-37.0</text> </observationRange> </referenceRange> </observation> </component> <component> <observation moodCode="EVN" classCode="OBS"> <templateId root= "05.27.840.1.810609.10.2022.4.2" /> <id nullFlavor="NA" /> < code codeSystem="local" code="MCV" displayName="MEAN CELL VOLUME" /> < statusCode code="completed" /> <effectiveTime value="" /> <value unit="fl" xsi:type="PQ" value="83.1" /> <referenceRange > <observationRange> <text>80.0-100.0</text> </observationRange> </referenceRange> </observation> </ component> <component> <observation moodCode="EVN" classCode="OBS"> <templateId root="16.840.1.646136.10.22.4.2" /> <id nullFlavor="NA" /> <code codeSystem="local" code="MO#" displayName= "MONOCYTE #" /> <statusCode code="completed" /> < effectiveTime value="" /> <value unit="k/cumm" xsi:type="PQ " value="0.8" /> <referenceRange> <observationRange> <text>0.1-1.0</text> </observationRange> </ referenceRange> </observation> </component> <component> <observation moodCode="EVN" classCode="OBS"> <templateId root= "16.840.1.393270.10.2022.4.2" /> <id nullFlavor="NA" /> < code codeSystem="local" code="MO%" displayName="MONOCYTE %" /> <statusCode code="completed" /> <effectiveTime value="" /> <value unit="%" xsi:type="PQ" value="6" /> < referenceRange> <observationRange> <text>4-6</text> </observationRange> </referenceRange> </observation> </component> <component> <observation moodCode="EVN" classCode= "OBS"> <templateId root="05.27.840.1.388550.1022.4.2" /> < id nullFlavor="NA" /> <code codeSystem="local" code="RBC" displayName= "RED BLOOD CELL" /> <statusCode code="completed" /> < effectiveTime value="" /> <value unit="m/cumm" xsi:type="PQ " value="4.26" /> <referenceRange> <observationRange> <text>4.00-6.00</text> </observationRange> </ referenceRange> </observation> </component> <component> <observation moodCode="EVN" classCode="OBS"> <templateId root= "05.27.840.1.747974.22.4.2" /> <id nullFlavor="NA" /> < code codeSystem="local" code="RDW" displayName="RED CELL DISTRIBUTION WIDTH" /> <statusCode code="completed" /> <effectiveTime value= "" /> <value unit="%" xsi:type="PQ" value="15.9" /> <interpretationCode codeSystem="local" code="*" /> < referenceRange> <observationRange> <text>11.0-15.6</text > </observationRange> </referenceRange> </observation > </component> <component> <observation moodCode="EVN" classCode="OBS"> <templateId root="05.27.840.1.651395.10.22.4.2" /> <id nullFlavor="NA" /> <code codeSystem="local" code="WBC" displayName="WHITE BLOOD CELL" /> <statusCode code="completed" /> <effectiveTime value="" /> <value unit="k/cumm" xsi: type="PQ" value="13.1" /> <interpretationCode codeSystem="local" code= "*" /> <referenceRange> <observationRange> < text>5.0-10.0</text> </observationRange> </referenceRange> </observation> </component> <component> <observation moodCode="EVN" classCode="OBS"> <templateId root= "16.840.1.364029.10.20.22.4.2" /> <id nullFlavor="NA" /> < code codeSystem="local" code="HGBT" displayName="HEMOGLOBIN" /> < statusCode code="completed" /> <effectiveTime value="" /> <value unit="gm/dL" xsi:type="PQ" value="11.1" /> < interpretationCode codeSystem="local" code="*" /> <referenceRange> <observationRange> <text>12.0-16.0</text> </ observationRange> </referenceRange> </observation> </ component> <component> <observation moodCode="EVN" classCode="OBS"> <templateId root="05.27.840.1.580011.10.22.4.2" /> <id nullFlavor="NA" /> <code codeSystem="local" code="HCTT" displayName= "HEMATOCRIT" /> <statusCode code="completed" /> < effectiveTime value="" /> <value unit="%" xsi:type="PQ " value="35.4" /> <interpretationCode codeSystem="local" code="*" /> <referenceRange> <observationRange> <text>37.0- 47.0</text> </observationRange> </referenceRange> </ observation> </component> <component> <observation moodCode= "EVN" classCode="OBS"> <templateId root="16.840.1.354617.10.20.22.4.2 " /> <id nullFlavor="NA" /> <code codeSystem="local" code="PLT " displayName="PLATELET COUNT" /> <statusCode code="completed" /> <effectiveTime value="" /> <value unit="k/cumm" xsi: type="PQ" value="376" /> <referenceRange> <observationRange > <text>150-400</text> </observationRange> </ referenceRange> </observation> </component> </organizer> </entry > <entry> <organizer moodCode="EVN" classCode="BATTERY"> <templateId root="216.840.1.249964.10..22.4.1" /> <id nullFlavor="NA" /> <code codeSystem="local" code="PT" displayName="PROTHROMBIN TIME WITH INR" /> < statusCode code="completed" /> <component> <observation moodCode= "EVN" classCode="OBS"> <templateId root="216.840.1.208655.10..22.4.2 " /> <id nullFlavor="NA" /> <code codeSystem="local" code= "INRX" displayName="INTERNATIONAL NORMAL RATIO" /> <statusCode code= "completed" /> <effectiveTime value="[id number]" /> <value unit="" xsi:type="PQ" value="1.1" /> <referenceRange> < observationRange> <text>0.9-1.1</text> </ observationRange> </referenceRange> </observation> </ component> <component> <observation moodCode="EVN" classCode="OBS"> <templateId root="16.840.1.583300.10..22.4.2" /> <id nullFlavor="NA" /> <code codeSystem="local" code="PTPAT" displayName= "PROTHROMBIN TIME" /> <statusCode code="completed" /> < effectiveTime value="776435823087" /> <value unit="sec" xsi:type="PQ" value="12.3" /> <interpretationCode codeSystem="local" code="*" /> <referenceRange> <observationRange> <text>9.3-12.2 </text> </observationRange> </referenceRange> </ observation> </component> </organizer> </entry> <entry> <organizer moodCode="EVN" classCode="BATTERY"> <templateId root= "05.27.840.1.466146.10...4.1" /> <id nullFlavor="NA" /> <code codeSystem="local" code="METABC" displayName="METABOLIC PANEL, COMPREHN" /> <statusCode code="completed" /> <component> <observation moodCode= "EVN" classCode="OBS"> <templateId root="840.1.830900.10...4.2 " /> <id nullFlavor="NA" /> <code codeSystem="local" code="K" displayName="POTASSIUM" /> <statusCode code="completed" /> < effectiveTime value="523194994193" /> <value unit="mmol/L" xsi:type="PQ " value="3.4" /> <interpretationCode codeSystem="local" code="*" /> <referenceRange> <observationRange> <text>3.5-5.3 </text> </observationRange> </referenceRange> </ observation> </component> <component> <observation moodCode= "EVN" classCode="OBS"> <templateId root="840.1.349359..22.4.2 " /> <id nullFlavor="NA" /> <code codeSystem="local" code= "eGFR" displayName="EST GFR (MDRD)" /> <statusCode code="completed" /> <effectiveTime value="" /> <value unit="mL/min" xsi:type="PQ" value="> 60" /> <referenceRange> < observationRange> <text>> 59</text> </ observationRange> </referenceRange> </observation> </ component> <component> <observation moodCode="EVN" classCode="OBS"> <templateId root="216.840.1.142383.01.28.22.4.2" /> <id nullFlavor="NA" /> <code codeSystem="local" code="GAP" displayName= "ANION GAP" /> <statusCode code="completed" /> <effectiveTime value="" /> <value unit="mmol/L" xsi:type="PQ" value="13" / > <referenceRange> <observationRange> <text>5- 15</text> </observationRange> </referenceRange> </ observation> </component> <component> <observation moodCode= "EVN" classCode="OBS"> <templateId root="05.27.840.1.404644.01.28.22.4.2 " /> <id nullFlavor="NA" /> <code codeSystem="local" code= "eCrCl" displayName="EST CrCl (CG)" /> <statusCode code="completed" /> <effectiveTime value="" /> <value unit="mL/min" xsi:type="PQ" value="> 60" /> <referenceRange> < observationRange> <text>> 59</text> </ observationRange> </referenceRange> </observation> </ component> <component> <observation moodCode="EVN" classCode="OBS"> <templateId root="216.840.1.170455...4.2" /> <id nullFlavor="NA" /> <code codeSystem="local" code="GLU" displayName= "GLUCOSE" /> <statusCode code="completed" /> <effectiveTime value="" /> <value unit="mg/dL" xsi:type="PQ" value="77" / > <referenceRange> <observationRange> <text>70- 99</text> </observationRange> </referenceRange> </ observation> </component> <component> <observation moodCode= "EVN" classCode="OBS"> <templateId root="216.840.1.712974.10..22.4.2 " /> <id nullFlavor="NA" /> <code codeSystem="local" code="CA " displayName="CALCIUM" /> <statusCode code="completed" /> < effectiveTime value="" /> <value unit="mg/dL" xsi:type="PQ " value="8.8" /> <referenceRange> <observationRange> <text>8.5-10.1</text> </observationRange> </ referenceRange> </observation> </component> <component> <observation moodCode="EVN" classCode="OBS"> <templateId root= "05.27.840.1.157905.10..22.4.2" /> <id nullFlavor="NA" /> < code codeSystem="local" code="BUN" displayName="BLOOD UREA NITROGEN" /> <statusCode code="completed" /> <effectiveTime value="" / > <value unit="mg/dL" xsi:type="PQ" value="7" /> < referenceRange> <observationRange> <text>7-20</text> </observationRange> </referenceRange> </observation> </component> <component> <observation moodCode="EVN" classCode= "OBS"> <templateId root="05.27.840.1.233169.10..22.4.2" /> < id nullFlavor="NA" /> <code codeSystem="local" code="CREAT" displayName ="CREATININE" /> <statusCode code="completed" /> < effectiveTime value="" /> <value unit="mg/dL" xsi:type="PQ " value="0.8" /> <referenceRange> <observationRange> <text>0.6-1.0</text> </observationRange> </ referenceRange> </observation> </component> <component> <observation moodCode="EVN" classCode="OBS"> <templateId root= "216.840.1.209992.10..22.4.2" /> <id nullFlavor="NA" /> < code codeSystem="local" code="NA" displayName="SODIUM" /> <statusCode code="completed" /> <effectiveTime value="" /> < value unit="mmol/L" xsi:type="PQ" value="137" /> <referenceRange> <observationRange> <text>135-148</text> </ observationRange> </referenceRange> </observation> </ component> <component> <observation moodCode="EVN" classCode="OBS"> <templateId root="216.840.1.079887.10.20.22.4.2" /> <id nullFlavor="NA" /> <code codeSystem="local" code="CL" displayName= "CHLORIDE" /> <statusCode code="completed" /> <effectiveTime value="" /> <value unit="mmol/L" xsi:type="PQ" value="100" /> <referenceRange> <observationRange> <text>98 -110</text> </observationRange> </referenceRange> </ observation> </component> <component> <observation moodCode= "EVN" classCode="OBS"> <templateId root="2.16.840.1.804727.10..22.4.2 " /> <id nullFlavor="NA" /> <code codeSystem="local" code="AST " displayName="AST/SGOT" /> <statusCode code="completed" /> < effectiveTime value="" /> <value unit="Units/L" xsi:type= "PQ" value="14" /> <referenceRange> <observationRange> <text>10-37</text> </observationRange> </ referenceRange> </observation> </component> <component> <observation moodCode="EVN" classCode="OBS"> <templateId root= "216.840.1.414153.10...4.2" /> <id nullFlavor="NA" /> < code codeSystem="local" code="ALT" displayName="ALT/SGPT" /> < statusCode code="completed" /> <effectiveTime value="" /> <value unit="Units/L" xsi:type="PQ" value="17" /> < referenceRange> <observationRange> <text>< 66</text> </observationRange> </referenceRange> </observation > </component> <component> <observation moodCode="EVN" classCode="OBS"> <templateId root="216.840.1.563754.10..22.4.2" /> <id nullFlavor="NA" /> <code codeSystem="local" code="CO2" displayName="CARBON DIOXIDE" /> <statusCode code="completed" /> <effectiveTime value="" /> <value unit="mmol/L" xsi:type ="PQ" value="24" /> <referenceRange> <observationRange> <text>21-32</text> </observationRange> </ referenceRange> </observation> </component> <component> <observation moodCode="EVN" classCode="OBS"> <templateId root= "16.840.1.454638.10.4.2" /> <id nullFlavor="NA" /> < code codeSystem="local" code="TP" displayName="TOTAL PROTEIN" /> < statusCode code="completed" /> <effectiveTime value="" /> <value unit="gm/dL" xsi:type="PQ" value="7.9" /> < referenceRange> <observationRange> <text>6.4-8.2</text> </observationRange> </referenceRange> </observation > </component> <component> <observation moodCode="EVN" classCode="OBS"> <templateId root="05.27.840.1.642087.01.28.22.4.2" /> <id nullFlavor="NA" /> <code codeSystem="local" code="ALB" displayName="ALBUMIN" /> <statusCode code="completed" /> < effectiveTime value="" /> <value unit="gm/dL" xsi:type="PQ " value="3.7" /> <referenceRange> <observationRange> <text>3.4-5.0</text> </observationRange> </ referenceRange> </observation> </component> <component> <observation moodCode="EVN" classCode="OBS"> <templateId root= "05.27.840.1.058366.01.28.22.4.2" /> <id nullFlavor="NA" /> < code codeSystem="local" code="BILTOT" displayName="BILI TOTAL" /> < statusCode code="completed" /> <effectiveTime value="" /> <value unit="mg/dL" xsi:type="PQ" value="0.3" /> < referenceRange> <observationRange> <text>0.0-1.0</text> </observationRange> </referenceRange> </observation > </component> <component> <observation moodCode="EVN" classCode="OBS"> <templateId root="16.840.1.345867.01.28.22.4.2" /> <id nullFlavor="NA" /> <code codeSystem="local" code="ALKP" displayName="ALKALINE PHOSPHATASE TOTAL" /> <statusCode code="completed " /> <effectiveTime value="" /> <value unit="IU/L " xsi:type="PQ" value="49" /> <referenceRange> < observationRange> <text>45-117</text> </observationRange > </referenceRange> </observation> </component> </ organizer> </entry> <entry> <organizer moodCode="EVN" classCode="BATTERY"> <templateId root="05.27.840.1.569303.01.28.22.4.1" /> <id nullFlavor= "NA" /> <code codeSystem="local" code="GLUMON" displayName="GLUCOSE (POC)" /> <statusCode code="completed" /> <component> <observation moodCode="EVN" classCode="OBS"> <templateId root= "05.27.840.1.657103.10..4.2" /> <id nullFlavor="NA" /> < code codeSystem="local" code="GLUMON" displayName="GLUCOSE (POC)" /> < statusCode code="completed" /> <effectiveTime value="029568165020" /> <value unit="mg/dL" xsi:type="PQ" value="105" /> < interpretationCode codeSystem="local" code="*" /> <referenceRange> <observationRange> <text>70-99</text> </ observationRange> </referenceRange> </observation> </ component> </organizer> </entry> <entry> <organizer moodCode="EVN" classCode="BATTERY"> <templateId root="16.840.1.151117.10...4.1" /> <id nullFlavor="NA" /> <code codeSystem="local" code="GLUMON" displayName="GLUCOSE (POC)" /> <statusCode code="completed" /> < component> <observation moodCode="EVN" classCode="OBS"> < templateId root="05.27.840.1.420385.01.28.22.4.2" /> <id nullFlavor="NA " /> <code codeSystem="local" code="GLUMON" displayName="GLUCOSE (POC) " /> <statusCode code="completed" /> <effectiveTime value= "523212929880" /> <value unit="mg/dL" xsi:type="PQ" value="106" /> <interpretationCode codeSystem="local" code="*" /> < referenceRange> <observationRange> <text>70-99</text> </observationRange> </referenceRange> </observation> </component> </organizer> </entry> <entry> <organizer moodCode="EVN " classCode="BATTERY"> <templateId root="05.27.840.1.717294.10..4.1" / > <id nullFlavor="NA" /> <code codeSystem="local" code="CBC" displayName="CBC" /> <statusCode code="completed" /> <component> <observation moodCode="EVN" classCode="OBS"> <templateId root= "05.27.840.1.531356.01.2822.4.2" /> <id nullFlavor="NA" /> < code codeSystem="local" code="MCH" displayName="MEAN CELL HGB" /> < statusCode code="completed" /> <effectiveTime value="722656493284" /> <value unit="pg" xsi:type="PQ" value="26.5" /> < interpretationCode codeSystem="local" code="*" /> <referenceRange> <observationRange> <text>27.0-33.0</text> </ observationRange> </referenceRange> </observation> </ component> <component> <observation moodCode="EVN" classCode="OBS"> <templateId root="16.840.1.943091.01.28.22.4.2" /> <id nullFlavor="NA" /> <code codeSystem="local" code="MCHC" displayName= "MEAN CELL HGB CONCENTRATION" /> <statusCode code="completed" /> <effectiveTime value="844404116480" /> <value unit="g/dL" xsi:type= "PQ" value="32.0" /> <referenceRange> <observationRange> <text>32.0-37.0</text> </observationRange> </ referenceRange> </observation> </component> <component> <observation moodCode="EVN" classCode="OBS"> <templateId root= "05.27.840.1.601793..22.4.2" /> <id nullFlavor="NA" /> < code codeSystem="local" code="MCV" displayName="MEAN CELL VOLUME" /> < statusCode code="completed" /> <effectiveTime value="640315086446" /> <value unit="fl" xsi:type="PQ" value="83.0" /> <referenceRange > <observationRange> <text>80.0-100.0</text> </observationRange> </referenceRange> </observation> </ component> <component> <observation moodCode="EVN" classCode="OBS"> <templateId root="216.840.1.350762.10.4.2" /> <id nullFlavor="NA" /> <code codeSystem="local" code="RBC" displayName=" RED BLOOD CELL" /> <statusCode code="completed" /> < effectiveTime value="699561288253" /> <value unit="m/cumm" xsi:type="PQ " value="4.07" /> <referenceRange> <observationRange> <text>4.00-6.00</text> </observationRange> </ referenceRange> </observation> </component> <component> <observation moodCode="EVN" classCode="OBS"> <templateId root= "05.27.840.1.735249.01.28.22.4.2" /> <id nullFlavor="NA" /> < code codeSystem="local" code="RDW" displayName="RED CELL DISTRIBUTION WIDTH" /> <statusCode code="completed" /> <effectiveTime value= "384392912082" /> <value unit="%" xsi:type="PQ" value="15.5" /> <referenceRange> <observationRange> <text>11.0- 15.6</text> </observationRange> </referenceRange> </ observation> </component> <component> <observation moodCode= "EVN" classCode="OBS"> <templateId root="05.27.840.1.006424...4.2 " /> <id nullFlavor="NA" /> <code codeSystem="local" code="WBC " displayName="WHITE BLOOD CELL" /> <statusCode code="completed" /> <effectiveTime value="752514345758" /> <value unit="k/cumm" xsi: type="PQ" value="9.1" /> <referenceRange> <observationRange > <text>5.0-10.0</text> </observationRange> </ referenceRange> </observation> </component> <component> <observation moodCode="EVN" classCode="OBS"> <templateId root= "05.27.840.1.652220.01.28.22.4.2" /> <id nullFlavor="NA" /> < code codeSystem="local" code="HGBT" displayName="HEMOGLOBIN" /> < statusCode code="completed" /> <effectiveTime value="752575491994" /> <value unit="gm/dL" xsi:type="PQ" value="10.8" /> < interpretationCode codeSystem="local" code="*" /> <referenceRange> <observationRange> <text>12.0-16.0</text> </ observationRange> </referenceRange> </observation> </ component> <component> <observation moodCode="EVN" classCode="OBS"> <templateId root="05.27.840.1.188196...4.2" /> <id nullFlavor="NA" /> <code codeSystem="local" code="HCTT" displayName= "HEMATOCRIT" /> <statusCode code="completed" /> < effectiveTime value="331264685611" /> <value unit="%" xsi:type="PQ " value="33.8" /> <interpretationCode codeSystem="local" code="*" /> <referenceRange> <observationRange> <text>37.0- 47.0</text> </observationRange> </referenceRange> </ observation> </component> <component> <observation moodCode= "EVN" classCode="OBS"> <templateId root="05.27.830.1.397019.10..4.2 " /> <id nullFlavor="NA" /> <code codeSystem="local" code="PLT " displayName="PLATELET COUNT" /> <statusCode code="completed" /> <effectiveTime value="042072711010" /> <value unit="k/cumm" xsi: type="PQ" value="327" /> <referenceRange> <observationRange > <text>150-400</text> </observationRange> </ referenceRange> </observation> </component> </organizer> </entry > <entry> <organizer moodCode="EVN" classCode="BATTERY"> <templateId root="05.27.840.1.013726.10.4.1" /> <id nullFlavor="NA" /> <code codeSystem="local" code="METABC" displayName="METABOLIC PANEL, COMPREHN" /> <statusCode code="completed" /> <component> <observation moodCode= "EVN" classCode="OBS"> <templateId root="05.27.840.1.563255....4.2 " /> <id nullFlavor="NA" /> <code codeSystem="local" code="K" displayName="POTASSIUM" /> <statusCode code="completed" /> < effectiveTime value="585201034978" /> <value unit="mmol/L" xsi:type="PQ " value="4.0" /> <referenceRange> <observationRange> <text>3.5-5.3</text> </observationRange> </ referenceRange> </observation> </component> <component> <observation moodCode="EVN" classCode="OBS"> <templateId root= "05.27.840.1.653505.10...4.2" /> <id nullFlavor="NA" /> < code codeSystem="local" code="eGFR" displayName="EST GFR (MDRD)" /> < statusCode code="completed" /> <effectiveTime value="682828219180" /> <value unit="mL/min" xsi:type="PQ" value="> 60" /> < referenceRange> <observationRange> <text>> 59</text> </observationRange> </referenceRange> </observation > </component> <component> <observation moodCode="EVN" classCode="OBS"> <templateId root="2.16.840.1.008920.10..22.4.2" /> <id nullFlavor="NA" /> <code codeSystem="local" code="GAP" displayName="ANION GAP" /> <statusCode code="completed" /> < effectiveTime value="332505023137" /> <value unit="mmol/L" xsi:type="PQ " value="6" /> <referenceRange> <observationRange> <text>5-15</text> </observationRange> </referenceRange > </observation> </component> <component> <observation moodCode="EVN" classCode="OBS"> <templateId root= "2.16.840.1.231943.10.20.22.4.2" /> <id nullFlavor="NA" /> < code codeSystem="local" code="eCrCl" displayName="EST CrCl (CG)" /> < statusCode code="completed" /> <effectiveTime value="412506403568" /> <value unit="mL/min" xsi:type="PQ" value="> 60" /> < referenceRange> <observationRange> <text>> 59</text> </observationRange> </referenceRange> </observation > </component> <component> <observation moodCode="EVN" classCode="OBS"> <templateId root="16.840.1.236855.10.2022.4.2" /> <id nullFlavor="NA" /> <code codeSystem="local" code="GLU" displayName="GLUCOSE" /> <statusCode code="completed" /> < effectiveTime value="" /> <value unit="mg/dL" xsi:type="PQ " value="96" /> <referenceRange> <observationRange> <text>70-99</text> </observationRange> </ referenceRange> </observation> </component> <component> <observation moodCode="EVN" classCode="OBS"> <templateId root= "05.27.840.1.965142.22.4.2" /> <id nullFlavor="NA" /> < code codeSystem="local" code="CA" displayName="CALCIUM" /> <statusCode code="completed" /> <effectiveTime value="" /> < value unit="mg/dL" xsi:type="PQ" value="8.4" /> <interpretationCode codeSystem="local" code="*" /> <referenceRange> < observationRange> <text>8.5-10.1</text> </ observationRange> </referenceRange> </observation> </ component> <component> <observation moodCode="EVN" classCode="OBS"> <templateId root="05.27.840.1.447990.10.2022.4.2" /> <id nullFlavor="NA" /> <code codeSystem="local" code="BUN" displayName= "BLOOD UREA NITROGEN" /> <statusCode code="completed" /> < effectiveTime value="" /> <value unit="mg/dL" xsi:type="PQ " value="5" /> <interpretationCode codeSystem="local" code="*" /> <referenceRange> <observationRange> <text>7-20</ text> </observationRange> </referenceRange> </ observation> </component> <component> <observation moodCode= "EVN" classCode="OBS"> <templateId root="16.840.1.074448.10..22.4.2 " /> <id nullFlavor="NA" /> <code codeSystem="local" code= "CREAT" displayName="CREATININE" /> <statusCode code="completed" /> <effectiveTime value="413582863251" /> <value unit="mg/dL" xsi: type="PQ" value="0.6" /> <referenceRange> <observationRange > <text>0.6-1.0</text> </observationRange> </ referenceRange> </observation> </component> <component> <observation moodCode="EVN" classCode="OBS"> <templateId root= "05.27.840.1.256040.10...4.2" /> <id nullFlavor="NA" /> < code codeSystem="local" code="NA" displayName="SODIUM" /> <statusCode code="completed" /> <effectiveTime value="338903479147" /> < value unit="mmol/L" xsi:type="PQ" value="134" /> <interpretationCode codeSystem="local" code="*" /> <referenceRange> < observationRange> <text>135-148</text> </ observationRange> </referenceRange> </observation> </ component> <component> <observation moodCode="EVN" classCode="OBS"> <templateId root="05.27.840.1.153667.10..22.4.2" /> <id nullFlavor="NA" /> <code codeSystem="local" code="CL" displayName= "CHLORIDE" /> <statusCode code="completed" /> <effectiveTime value="420956658425" /> <value unit="mmol/L" xsi:type="PQ" value="104" /> <referenceRange> <observationRange> <text>98 -110</text> </observationRange> </referenceRange> </ observation> </component> <component> <observation moodCode= "EVN" classCode="OBS"> <templateId root="16.840.1.102153.01.28.22.4.2 " /> <id nullFlavor="NA" /> <code codeSystem="local" code="AST " displayName="AST/SGOT" /> <statusCode code="completed" /> < effectiveTime value="635317935468" /> <value unit="Units/L" xsi:type= "PQ" value="13" /> <referenceRange> <observationRange> <text>10-37</text> </observationRange> </ referenceRange> </observation> </component> <component> <observation moodCode="EVN" classCode="OBS"> <templateId root= "05.27.840.1.447931.01.28.22.4.2" /> <id nullFlavor="NA" /> < code codeSystem="local" code="ALT" displayName="ALT/SGPT" /> < statusCode code="completed" /> <effectiveTime value="295706351469" /> <value unit="Units/L" xsi:type="PQ" value="15" /> < referenceRange> <observationRange> <text>< 66</text> </observationRange> </referenceRange> </observation > </component> <component> <observation moodCode="EVN" classCode="OBS"> <templateId root="05.27.840.1.799939.01.28.22.4.2" /> <id nullFlavor="NA" /> <code codeSystem="local" code="CO2" displayName="CARBON DIOXIDE" /> <statusCode code="completed" /> <effectiveTime value="963428342242" /> <value unit="mmol/L" xsi:type ="PQ" value="24" /> <referenceRange> <observationRange> <text>21-32</text> </observationRange> </ referenceRange> </observation> </component> <component> <observation moodCode="EVN" classCode="OBS"> <templateId root= "216.840.1.024492.10...4.2" /> <id nullFlavor="NA" /> < code codeSystem="local" code="TP" displayName="TOTAL PROTEIN" /> < statusCode code="completed" /> <effectiveTime value="584625443310" /> <value unit="gm/dL" xsi:type="PQ" value="7.3" /> < referenceRange> <observationRange> <text>6.4-8.2</text> </observationRange> </referenceRange> </observation > </component> <component> <observation moodCode="EVN" classCode="OBS"> <templateId root="216.840.1.327556.10..22.4.2" /> <id nullFlavor="NA" /> <code codeSystem="local" code="ALB" displayName="ALBUMIN" /> <statusCode code="completed" /> < effectiveTime value="429983872307" /> <value unit="gm/dL" xsi:type="PQ " value="3.4" /> <referenceRange> <observationRange> <text>3.4-5.0</text> </observationRange> </ referenceRange> </observation> </component> <component> <observation moodCode="EVN" classCode="OBS"> <templateId root= "05.27.840.1.406684.10.22.4.2" /> <id nullFlavor="NA" /> < code codeSystem="local" code="BILTOT" displayName="BILI TOTAL" /> < statusCode code="completed" /> <effectiveTime value="713760480347" /> <value unit="mg/dL" xsi:type="PQ" value="0.5" /> < referenceRange> <observationRange> <text>0.0-1.0</text> </observationRange> </referenceRange> </observation > </component> <component> <observation moodCode="EVN" classCode="OBS"> <templateId root="840.1.726065.01.28.22.4.2" /> <id nullFlavor="NA" /> <code codeSystem="local" code="ALKP" displayName="ALKALINE PHOSPHATASE TOTAL" /> <statusCode code="completed " /> <effectiveTime value="765954525592" /> <value unit="IU/L " xsi:type="PQ" value="49" /> <referenceRange> < observationRange> <text>45-117</text> </observationRange > </referenceRange> </observation> </component> </ organizer> </entry> <entry> <organizer moodCode="EVN" classCode="BATTERY"> <templateId root="05.27.840.1.501985.10.22.4.1" /> <id nullFlavor= "NA" /> <code codeSystem="local" code="MAG" displayName="MAGNESIUM" /> <statusCode code="completed" /> <component> <observation moodCode= "EVN" classCode="OBS"> <templateId root="05.27.840.1.461283.1022.4.2 " /> <id nullFlavor="NA" /> <code codeSystem="local" code="MAG " displayName="MAGNESIUM" /> <statusCode code="completed" /> < effectiveTime value="755333841550" /> <value unit="mg/dL" xsi:type="PQ " value="1.7" /> <interpretationCode codeSystem="local" code="*" /> <referenceRange> <observationRange> <text>1.8-2.4 </text> </observationRange> </referenceRange> </ observation> </component> </organizer> </entry> <entry> <organizer moodCode="EVN" classCode="BATTERY"> <templateId root= "16.840.1.986880.10..22.4.1" /> <id nullFlavor="NA" /> <code codeSystem="local" code="PT" displayName="PROTHROMBIN TIME WITH INR" /> < statusCode code="completed" /> <component> <observation moodCode= "EVN" classCode="OBS"> <templateId root="05.27.840.1.015599.10..22.4.2 " /> <id nullFlavor="NA" /> <code codeSystem="local" code= "INRX" displayName="INTERNATIONAL NORMAL RATIO" /> <statusCode code= "completed" /> <effectiveTime value="229162361156" /> <value unit="" xsi:type="PQ" value="1.3" /> <interpretationCode codeSystem= "local" code="*" /> <referenceRange> <observationRange> <text>0.9-1.1</text> </observationRange> </ referenceRange> </observation> </component> <component> <observation moodCode="EVN" classCode="OBS"> <templateId root= "05.27.840.1.123485.10.4.2" /> <id nullFlavor="NA" /> < code codeSystem="local" code="PTPAT" displayName="PROTHROMBIN TIME" /> <statusCode code="completed" /> <effectiveTime value="" /> <value unit="sec" xsi:type="PQ" value="14.2" /> < interpretationCode codeSystem="local" code="*" /> <referenceRange> <observationRange> <text>9.3-12.2</text> </ observationRange> </referenceRange> </observation> </ component> </organizer> </entry> <entry> <organizer moodCode="EVN" classCode="BATTERY"> <templateId root="2.16.840.1.113262.10.4.1" /> <id nullFlavor="NA" /> <code codeSystem="local" code="PTT" displayName ="PARTIAL THROMBOPLASTIN TIME" /> <statusCode code="completed" /> < component> <observation moodCode="EVN" classCode="OBS"> < templateId root="2.16.840.1.830008.10.4.2" /> <id nullFlavor="NA " /> <code codeSystem="local" code="PTT" displayName="PARTIAL THROMBOPLASTIN TIME" /> <statusCode code="completed" /> < effectiveTime value="746865892724" /> <value unit="sec" xsi:type="PQ" value="41" /> <interpretationCode codeSystem="local" code="*" /> <referenceRange> <observationRange> <text>23-39</ text> </observationRange> </referenceRange> </ observation> </component> </organizer> </entry> <entry> <organizer moodCode="EVN" classCode="BATTERY"> <templateId root= "2.16.840.1.631192.01.28.22.4.1" /> <id nullFlavor="NA" /> <code codeSystem="local" code="GLUMON" displayName="GLUCOSE (POC)" /> < statusCode code="completed" /> <component> <observation moodCode= "EVN" classCode="OBS"> <templateId root="840.1.646513.01.28.22.4.2 " /> <id nullFlavor="NA" /> <code codeSystem="local" code= "GLUMON" displayName="GLUCOSE (POC)" /> <statusCode code="completed" / > <effectiveTime value="685079977491" /> <value unit="mg/dL" xsi:type="PQ" value="110" /> <interpretationCode codeSystem="local" code="*" /> <referenceRange> <observationRange> <text>70-99</text> </observationRange> </referenceRange> </observation> </component> </organizer> </entry> <entry> < organizer moodCode="EVN" classCode="BATTERY"> <templateId root= "840.1.884298.01.28.22.4.1" /> <id nullFlavor="NA" /> <code codeSystem="local" code="GLUMON" displayName="GLUCOSE (POC)" /> < statusCode code="completed" /> <component> <observation moodCode= "EVN" classCode="OBS"> <templateId root="840.1.291353.01.28.22.4.2 " /> <id nullFlavor="NA" /> <code codeSystem="local" code= "GLUMON" displayName="GLUCOSE (POC)" /> <statusCode code="completed" / > <effectiveTime value="103130161520" /> <value unit="mg/dL" xsi:type="PQ" value="99" /> <referenceRange> < observationRange> <text>70-99</text> </observationRange > </referenceRange> </observation> </component> </ organizer> </entry> <entry> <organizer moodCode="EVN" classCode="BATTERY"> <templateId root="05.27.840.1.528203.10...4.1" /> <id nullFlavor= "NA" /> <code codeSystem="local" code="PTTH" displayName="PTT HEPARIN PROTOCOLS" /> <statusCode code="completed" /> <component> < observation moodCode="EVN" classCode="OBS"> <templateId root= "05.27.840.1.503879...4.2" /> <id nullFlavor="NA" /> < code codeSystem="local" code="PTT" displayName="PARTIAL THROMBOPLASTIN TIME" /> <statusCode code="completed" /> <effectiveTime value= "638268354719" /> <value unit="sec" xsi:type="PQ" value="84" /> <interpretationCode codeSystem="local" code="*" /> <referenceRange> <observationRange> <text>23-39</text> </ observationRange> </referenceRange> </observation> </ component> </organizer> </entry> <entry> <organizer moodCode="EVN" classCode="BATTERY"> <templateId root="05.27.840.1.045470.10..4.1" /> <id nullFlavor="NA" /> <code codeSystem="local" code="GLUMON" displayName="GLUCOSE (POC)" /> <statusCode code="completed" /> < component> <observation moodCode="EVN" classCode="OBS"> < templateId root="05.27.840.1.833409.01.28.22.4.2" /> <id nullFlavor="NA " /> <code codeSystem="local" code="GLUMON" displayName="GLUCOSE (POC) " /> <statusCode code="completed" /> <effectiveTime value= "691115665967" /> <value unit="mg/dL" xsi:type="PQ" value="88" /> <referenceRange> <observationRange> <text>70-99</ text> </observationRange> </referenceRange> </ observation> </component> </organizer> </entry> <entry> <organizer moodCode="EVN" classCode="BATTERY"> <templateId root= "16.840.1.129956.01.28.22.4.1" /> <id nullFlavor="NA" /> <code codeSystem="local" code="CBC" displayName="CBC" /> <statusCode code= "completed" /> <component> <observation moodCode="EVN" classCode= "OBS"> <templateId root="16.840.1.127040.10..4.2" /> < id nullFlavor="NA" /> <code codeSystem="local" code="MCH" displayName= "MEAN CELL HGB" /> <statusCode code="completed" /> < effectiveTime value="601764182487" /> <value unit="pg" xsi:type="PQ" value="26.9" /> <interpretationCode codeSystem="local" code="*" /> <referenceRange> <observationRange> <text>27.0- 33.0</text> </observationRange> </referenceRange> </ observation> </component> <component> <observation moodCode= "EVN" classCode="OBS"> <templateId root="05.27.840.1.631343...4.2 " /> <id nullFlavor="NA" /> <code codeSystem="local" code= "MCHC" displayName="MEAN CELL HGB CONCENTRATION" /> <statusCode code= "completed" /> <effectiveTime value="" /> <value unit="g/dL" xsi:type="PQ" value="31.8" /> <interpretationCode codeSystem="local" code="*" /> <referenceRange> < observationRange> <text>32.0-37.0</text> </ observationRange> </referenceRange> </observation> </ component> <component> <observation moodCode="EVN" classCode="OBS"> <templateId root="2.16.840.1.125317.10...4.2" /> <id nullFlavor="NA" /> <code codeSystem="local" code="MCV" displayName= "MEAN CELL VOLUME" /> <statusCode code="completed" /> < effectiveTime value="" /> <value unit="fl" xsi:type="PQ" value="84.7" /> <referenceRange> <observationRange> <text>80.0-100.0</text> </observationRange> </ referenceRange> </observation> </component> <component> <observation moodCode="EVN" classCode="OBS"> <templateId root= "2.16.840.1.828181.10...4.2" /> <id nullFlavor="NA" /> < code codeSystem="local" code="RBC" displayName="RED BLOOD CELL" /> < statusCode code="completed" /> <effectiveTime value="" /> <value unit="m/cumm" xsi:type="PQ" value="3.79" /> < interpretationCode codeSystem="local" code="*" /> <referenceRange> <observationRange> <text>4.00-6.00</text> </ observationRange> </referenceRange> </observation> </ component> <component> <observation moodCode="EVN" classCode="OBS"> <templateId root="216.840.1.828074.1022.4.2" /> <id nullFlavor="NA" /> <code codeSystem="local" code="RDW" displayName=" RED CELL DISTRIBUTION WIDTH" /> <statusCode code="completed" /> <effectiveTime value="" /> <value unit="%" xsi:type= "PQ" value="15.5" /> <referenceRange> <observationRange> <text>11.0-15.6</text> </observationRange> </ referenceRange> </observation> </component> <component> <observation moodCode="EVN" classCode="OBS"> <templateId root= "05.27.840.1.423700.01.28.22.4.2" /> <id nullFlavor="NA" /> < code codeSystem="local" code="WBC" displayName="WHITE BLOOD CELL" /> < statusCode code="completed" /> <effectiveTime value="" /> <value unit="k/cumm" xsi:type="PQ" value="10.0" /> < referenceRange> <observationRange> <text>5.0-10.0</text > </observationRange> </referenceRange> </observation > </component> <component> <observation moodCode="EVN" classCode="OBS"> <templateId root="216.840.1.998592.22.4.2" /> <id nullFlavor="NA" /> <code codeSystem="local" code="HGBT" displayName="HEMOGLOBIN" /> <statusCode code="completed" /> < effectiveTime value="" /> <value unit="gm/dL" xsi:type="PQ " value="10.2" /> <interpretationCode codeSystem="local" code="*" /> <referenceRange> <observationRange> <text>12.0- 16.0</text> </observationRange> </referenceRange> </ observation> </component> <component> <observation moodCode= "EVN" classCode="OBS"> <templateId root="216.840.1.034495.22.4.2 " /> <id nullFlavor="NA" /> <code codeSystem="local" code= "HCTT" displayName="HEMATOCRIT" /> <statusCode code="completed" /> <effectiveTime value="317500599500" /> <value unit="%" xsi: type="PQ" value="32.1" /> <interpretationCode codeSystem="local" code= "*" /> <referenceRange> <observationRange> < text>37.0-47.0</text> </observationRange> </referenceRange> </observation> </component> <component> <observation moodCode="EVN" classCode="OBS"> <templateId root= "216.840.1.198086.01.28.22.4.2" /> <id nullFlavor="NA" /> < code codeSystem="local" code="PLT" displayName="PLATELET COUNT" /> < statusCode code="completed" /> <effectiveTime value="531676936979" /> <value unit="k/cumm" xsi:type="PQ" value="296" /> < referenceRange> <observationRange> <text>150-400</text> </observationRange> </referenceRange> </observation > </component> </organizer> </entry> <entry> <organizer moodCode= "EVN" classCode="BATTERY"> <templateId root="216.840.1.414900.01.28.22.4.1 " /> <id nullFlavor="NA" /> <code codeSystem="local" code="PTTH" displayName="PTT HEPARIN PROTOCOLS" /> <statusCode code="completed" /> <component> <observation moodCode="EVN" classCode="OBS"> < templateId root="840.1.643157.01.28.22.4.2" /> <id nullFlavor="NA " /> <code codeSystem="local" code="PTT" displayName="PARTIAL THROMBOPLASTIN TIME" /> <statusCode code="completed" /> < effectiveTime value="" /> <value unit="sec" xsi:type="PQ" value="175" /> <interpretationCode codeSystem="local" code="" /> <referenceRange> <observationRange> <text>23-39</ text> </observationRange> </referenceRange> </ observation> </component> </organizer> </entry> <entry> <organizer moodCode="EVN" classCode="BATTERY"> <templateId root= "840.1.892985.01.28.22.4.1" /> <id nullFlavor="NA" /> <code codeSystem="local" code="METABC" displayName="METABOLIC PANEL, COMPREHN" /> <statusCode code="completed" /> <component> <observation moodCode= "EVN" classCode="OBS"> <templateId root="840.1.786096.01.28.22.4.2 " /> <id nullFlavor="NA" /> <code codeSystem="local" code="K" displayName="POTASSIUM" /> <statusCode code="completed" /> < effectiveTime value="" /> <value unit="mmol/L" xsi:type="PQ " value="4.0" /> <referenceRange> <observationRange> <text>3.5-5.3</text> </observationRange> </ referenceRange> </observation> </component> <component> <observation moodCode="EVN" classCode="OBS"> <templateId root= "216.840.1.361295.10..22.4.2" /> <id nullFlavor="NA" /> < code codeSystem="local" code="eGFR" displayName="EST GFR (MDRD)" /> < statusCode code="completed" /> <effectiveTime value="" /> <value unit="mL/min" xsi:type="PQ" value="> 60" /> < referenceRange> <observationRange> <text>> 59</text> </observationRange> </referenceRange> </observation > </component> <component> <observation moodCode="EVN" classCode="OBS"> <templateId root="05.27.840.1.078063.10..4.2" /> <id nullFlavor="NA" /> <code codeSystem="local" code="GAP" displayName="ANION GAP" /> <statusCode code="completed" /> < effectiveTime value="" /> <value unit="mmol/L" xsi:type="PQ " value="6" /> <referenceRange> <observationRange> <text>5-15</text> </observationRange> </referenceRange > </observation> </component> <component> <observation moodCode="EVN" classCode="OBS"> <templateId root= "05.27.840.1.335140.10...4.2" /> <id nullFlavor="NA" /> < code codeSystem="local" code="eCrCl" displayName="EST CrCl (CG)" /> < statusCode code="completed" /> <effectiveTime value="" /> <value unit="mL/min" xsi:type="PQ" value="> 60" /> < referenceRange> <observationRange> <text>> 59</text> </observationRange> </referenceRange> </observation > </component> <component> <observation moodCode="EVN" classCode="OBS"> <templateId root="216.840.1.547224.10.4.2" /> <id nullFlavor="NA" /> <code codeSystem="local" code="GLU" displayName="GLUCOSE" /> <statusCode code="completed" /> < effectiveTime value="" /> <value unit="mg/dL" xsi:type="PQ " value="81" /> <referenceRange> <observationRange> <text>70-99</text> </observationRange> </ referenceRange> </observation> </component> <component> <observation moodCode="EVN" classCode="OBS"> <templateId root= "216.840.1.930908.01.28.22.4.2" /> <id nullFlavor="NA" /> < code codeSystem="local" code="CA" displayName="CALCIUM" /> <statusCode code="completed" /> <effectiveTime value="" /> < value unit="mg/dL" xsi:type="PQ" value="8.1" /> <interpretationCode codeSystem="local" code="*" /> <referenceRange> < observationRange> <text>8.5-10.1</text> </ observationRange> </referenceRange> </observation> </ component> <component> <observation moodCode="EVN" classCode="OBS"> <templateId root="216.840.1.497383.22.4.2" /> <id nullFlavor="NA" /> <code codeSystem="local" code="BUN" displayName= "BLOOD UREA NITROGEN" /> <statusCode code="completed" /> < effectiveTime value="" /> <value unit="mg/dL" xsi:type="PQ " value="5" /> <interpretationCode codeSystem="local" code="*" /> <referenceRange> <observationRange> <text>7-20</ text> </observationRange> </referenceRange> </ observation> </component> <component> <observation moodCode= "EVN" classCode="OBS"> <templateId root="2.16.840.1.344616.01.28.22.4.2 " /> <id nullFlavor="NA" /> <code codeSystem="local" code= "CREAT" displayName="CREATININE" /> <statusCode code="completed" /> <effectiveTime value="" /> <value unit="mg/dL" xsi: type="PQ" value="0.6" /> <referenceRange> <observationRange > <text>0.6-1.0</text> </observationRange> </ referenceRange> </observation> </component> <component> <observation moodCode="EVN" classCode="OBS"> <templateId root= "2.16.840.1.105423.01.28.22.4.2" /> <id nullFlavor="NA" /> < code codeSystem="local" code="NA" displayName="SODIUM" /> <statusCode code="completed" /> <effectiveTime value="" /> < value unit="mmol/L" xsi:type="PQ" value="138" /> <referenceRange> <observationRange> <text>135-148</text> </ observationRange> </referenceRange> </observation> </ component> <component> <observation moodCode="EVN" classCode="OBS"> <templateId root="16.840.1.772921.10..22.4.2" /> <id nullFlavor="NA" /> <code codeSystem="local" code="CL" displayName= "CHLORIDE" /> <statusCode code="completed" /> <effectiveTime value="" /> <value unit="mmol/L" xsi:type="PQ" value="105" /> <referenceRange> <observationRange> <text>98 -110</text> </observationRange> </referenceRange> </ observation> </component> <component> <observation moodCode= "EVN" classCode="OBS"> <templateId root="16.840.1.960834.10...4.2 " /> <id nullFlavor="NA" /> <code codeSystem="local" code="AST " displayName="AST/SGOT" /> <statusCode code="completed" /> < effectiveTime value="" /> <value unit="Units/L" xsi:type= "PQ" value="49" /> <interpretationCode codeSystem="local" code="*" /> <referenceRange> <observationRange> <text>10-37 </text> </observationRange> </referenceRange> </ observation> </component> <component> <observation moodCode= "EVN" classCode="OBS"> <templateId root="16.840.1.141309.10...4.2 " /> <id nullFlavor="NA" /> <code codeSystem="local" code="ALT " displayName="ALT/SGPT" /> <statusCode code="completed" /> < effectiveTime value="" /> <value unit="Units/L" xsi:type= "PQ" value="22" /> <referenceRange> <observationRange> <text>< 66</text> </observationRange> </ referenceRange> </observation> </component> <component> <observation moodCode="EVN" classCode="OBS"> <templateId root= "16.840.1.793524.10.22.4.2" /> <id nullFlavor="NA" /> < code codeSystem="local" code="CO2" displayName="CARBON DIOXIDE" /> < statusCode code="completed" /> <effectiveTime value="" /> <value unit="mmol/L" xsi:type="PQ" value="27" /> < referenceRange> <observationRange> <text>21-32</text> </observationRange> </referenceRange> </observation> </component> <component> <observation moodCode="EVN" classCode= "OBS"> <templateId root="05.27.840.1.284371.01.28.22.4.2" /> < id nullFlavor="NA" /> <code codeSystem="local" code="TP" displayName= "TOTAL PROTEIN" /> <statusCode code="completed" /> < effectiveTime value="" /> <value unit="gm/dL" xsi:type="PQ " value="7.4" /> <referenceRange> <observationRange> <text>6.4-8.2</text> </observationRange> </ referenceRange> </observation> </component> <component> <observation moodCode="EVN" classCode="OBS"> <templateId root= "05.27.840.1.101193.10.22.4.2" /> <id nullFlavor="NA" /> < code codeSystem="local" code="ALB" displayName="ALBUMIN" /> < statusCode code="completed" /> <effectiveTime value="633749267550" /> <value unit="gm/dL" xsi:type="PQ" value="3.2" /> < interpretationCode codeSystem="local" code="*" /> <referenceRange> <observationRange> <text>3.4-5.0</text> </ observationRange> </referenceRange> </observation> </ component> <component> <observation moodCode="EVN" classCode="OBS"> <templateId root="16.840.1.426403.01.28.22.4.2" /> <id nullFlavor="NA" /> <code codeSystem="local" code="BILTOT" displayName= "BILI TOTAL" /> <statusCode code="completed" /> < effectiveTime value="" /> <value unit="mg/dL" xsi:type="PQ " value="0.4" /> <referenceRange> <observationRange> <text>0.0-1.0</text> </observationRange> </ referenceRange> </observation> </component> <component> <observation moodCode="EVN" classCode="OBS"> <templateId root= "16.840.1.558239.01.28.22.4.2" /> <id nullFlavor="NA" /> < code codeSystem="local" code="ALKP" displayName="ALKALINE PHOSPHATASE TOTAL" /> <statusCode code="completed" /> <effectiveTime value= "" /> <value unit="IU/L" xsi:type="PQ" value="48" /> <referenceRange> <observationRange> <text>45-117</ text> </observationRange> </referenceRange> </ observation> </component> </organizer> </entry> <entry> <organizer moodCode="EVN" classCode="BATTERY"> <templateId root= "216.840.1.956307.01.28.22.4.1" /> <id nullFlavor="NA" /> <code codeSystem="local" code="CBC" displayName="CBC" /> <statusCode code= "completed" /> <component> <observation moodCode="EVN" classCode= "OBS"> <templateId root="16.840.1.640778....4.2" /> < id nullFlavor="NA" /> <code codeSystem="local" code="MCH" displayName= "MEAN CELL HGB" /> <statusCode code="completed" /> < effectiveTime value="" /> <value unit="pg" xsi:type="PQ" value="26.5" /> <interpretationCode codeSystem="local" code="*" /> <referenceRange> <observationRange> <text>27.0- 33.0</text> </observationRange> </referenceRange> </ observation> </component> <component> <observation moodCode= "EVN" classCode="OBS"> <templateId root="05.27.840.1.489113.01.28.22.4.2 " /> <id nullFlavor="NA" /> <code codeSystem="local" code= "MCHC" displayName="MEAN CELL HGB CONCENTRATION" /> <statusCode code= "completed" /> <effectiveTime value="" /> <value unit="g/dL" xsi:type="PQ" value="31.5" /> <interpretationCode codeSystem="local" code="*" /> <referenceRange> < observationRange> <text>32.0-37.0</text> </ observationRange> </referenceRange> </observation> </ component> <component> <observation moodCode="EVN" classCode="OBS"> <templateId root="05.27.840.1.498244..4.2" /> <id nullFlavor="NA" /> <code codeSystem="local" code="MCV" displayName= "MEAN CELL VOLUME" /> <statusCode code="completed" /> < effectiveTime value="" /> <value unit="fl" xsi:type="PQ" value="84.1" /> <referenceRange> <observationRange> <text>80.0-100.0</text> </observationRange> </ referenceRange> </observation> </component> <component> <observation moodCode="EVN" classCode="OBS"> <templateId root= "2.16.840.1.133264.01.28.224.2" /> <id nullFlavor="NA" /> < code codeSystem="local" code="RBC" displayName="RED BLOOD CELL" /> < statusCode code="completed" /> <effectiveTime value="" /> <value unit="m/cumm" xsi:type="PQ" value="3.59" /> < interpretationCode codeSystem="local" code="*" /> <referenceRange> <observationRange> <text>4.00-6.00</text> </ observationRange> </referenceRange> </observation> </ component> <component> <observation moodCode="EVN" classCode="OBS"> <templateId root="216.840.1.627157.10.4.2" /> <id nullFlavor="NA" /> <code codeSystem="local" code="RDW" displayName=" RED CELL DISTRIBUTION WIDTH" /> <statusCode code="completed" /> <effectiveTime value="" /> <value unit="%" xsi:type= "PQ" value="15.4" /> <referenceRange> <observationRange> <text>11.0-15.6</text> </observationRange> </ referenceRange> </observation> </component> <component> <observation moodCode="EVN" classCode="OBS"> <templateId root= "216.840.1.462131.10.2022.4.2" /> <id nullFlavor="NA" /> < code codeSystem="local" code="WBC" displayName="WHITE BLOOD CELL" /> < statusCode code="completed" /> <effectiveTime value="" /> <value unit="k/cumm" xsi:type="PQ" value="9.7" /> < referenceRange> <observationRange> <text>5.0-10.0</text > </observationRange> </referenceRange> </observation > </component> <component> <observation moodCode="EVN" classCode="OBS"> <templateId root="2.840.1.308673.10.4.2" /> <id nullFlavor="NA" /> <code codeSystem="local" code="HGBT" displayName="HEMOGLOBIN" /> <statusCode code="completed" /> < effectiveTime value="" /> <value unit="gm/dL" xsi:type="PQ " value="9.5" /> <interpretationCode codeSystem="local" code="*" /> <referenceRange> <observationRange> <text>12.0- 16.0</text> </observationRange> </referenceRange> </ observation> </component> <component> <observation moodCode= "EVN" classCode="OBS"> <templateId root="16.840.1.396089.10.22.4.2 " /> <id nullFlavor="NA" /> <code codeSystem="local" code= "HCTT" displayName="HEMATOCRIT" /> <statusCode code="completed" /> <effectiveTime value="" /> <value unit="%" xsi: type="PQ" value="30.2" /> <interpretationCode codeSystem="local" code= "*" /> <referenceRange> <observationRange> < text>37.0-47.0</text> </observationRange> </referenceRange> </observation> </component> <component> <observation moodCode="EVN" classCode="OBS"> <templateId root= "840.1.662845.01.28.22.4.2" /> <id nullFlavor="NA" /> < code codeSystem="local" code="PLT" displayName="PLATELET COUNT" /> < statusCode code="completed" /> <effectiveTime value="" /> <value unit="k/cumm" xsi:type="PQ" value="311" /> < referenceRange> <observationRange> <text>150-400</text> </observationRange> </referenceRange> </observation > </component> </organizer> </entry> <entry> <organizer moodCode= "EVN" classCode="BATTERY"> <templateId root="840.1.134076.01.28.22.4.1 " /> <id nullFlavor="NA" /> <code codeSystem="local" code="PREG" displayName=" TEST, SERUM" /> <statusCode code="completed" /> <component> <observation moodCode="EVN" classCode="OBS"> < templateId root="840.1.239396.10.4.2" /> <id nullFlavor="NA " /> <code codeSystem="local" code="PREG" displayName=" TEST, SERUM" /> <statusCode code="completed" /> <effectiveTime value ="" /> <value unit="" xsi:type="PQ" value="NEGATIVE" /> <referenceRange> <observationRange> <text> NEGATIVE</text> </observationRange> </referenceRange> </observation> </component> </organizer> </entry> <entry> < organizer moodCode="EVN" classCode="BATTERY"> <templateId root= "05.27.840.1.669914.10..22.4.1" /> <id nullFlavor="NA" /> <code codeSystem="local" code="GLUMON" displayName="GLUCOSE (POC)" /> < statusCode code="completed" /> <component> <observation moodCode= "EVN" classCode="OBS"> <templateId root="840.1.004616.10..4.2 " /> <id nullFlavor="NA" /> <code codeSystem="local" code= "GLUMON" displayName="GLUCOSE (POC)" /> <statusCode code="completed" / > <effectiveTime value="420621377095" /> <value unit="mg/dL" xsi:type="PQ" value="84" /> <referenceRange> < observationRange> <text>70-99</text> </observationRange > </referenceRange> </observation> </component> </ organizer> </entry> <entry> <organizer moodCode="EVN" classCode="BATTERY"> <templateId root="840.1.885888.10.22.4.1" /> <id nullFlavor= "NA" /> <code codeSystem="local" code="PTTH" displayName="PTT HEPARIN PROTOCOLS" /> <statusCode code="completed" /> <component> < observation moodCode="EVN" classCode="OBS"> <templateId root= "05.27.840.1.930133.10..22.4.2" /> <id nullFlavor="NA" /> < code codeSystem="local" code="PTT" displayName="PARTIAL THROMBOPLASTIN TIME" /> <statusCode code="completed" /> <effectiveTime value= "203861669078" /> <value unit="sec" xsi:type="PQ" value="105" /> <interpretationCode codeSystem="local" code="*" /> <referenceRange > <observationRange> <text>23-39</text> </ observationRange> </referenceRange> </observation> </ component> </organizer> </entry> <entry> <organizer moodCode="EVN" classCode="BATTERY"> <templateId root="216.840.1.240124.10..22.4.1" /> <id nullFlavor="NA" /> <code codeSystem="local" code="GLUMON" displayName="GLUCOSE (POC)" /> <statusCode code="completed" /> < component> <observation moodCode="EVN" classCode="OBS"> < templateId root="216.840.1.640589.10..22.4.2" /> <id nullFlavor="NA " /> <code codeSystem="local" code="GLUMON" displayName="GLUCOSE (POC) " /> <statusCode code="completed" /> <effectiveTime value= "023680050058" /> <value unit="mg/dL" xsi:type="PQ" value="65" /> <interpretationCode codeSystem="local" code="*" /> <referenceRange > <observationRange> <text>70-99</text> </ observationRange> </referenceRange> </observation> </ component> </organizer> </entry> <entry> <organizer moodCode="EVN" classCode="BATTERY"> <templateId root="216.840.1.373840.10..22.4.1" /> <id nullFlavor="NA" /> <code codeSystem="local" code="GLUMON" displayName="GLUCOSE (POC)" /> <statusCode code="completed" /> < component> <observation moodCode="EVN" classCode="OBS"> < templateId root="840.1.181106.10...4.2" /> <id nullFlavor="NA " /> <code codeSystem="local" code="GLUMON" displayName="GLUCOSE (POC) " /> <statusCode code="completed" /> <effectiveTime value= "364103123491" /> <value unit="mg/dL" xsi:type="PQ" value="96" /> <referenceRange> <observationRange> <text>70-99</ text> </observationRange> </referenceRange> </ observation> </component> </organizer> </entry> <entry> <organizer moodCode="EVN" classCode="BATTERY"> <templateId root= "840.1.294942.10...4.1" /> <id nullFlavor="NA" /> <code codeSystem="local" code="GLUMON" displayName="GLUCOSE (POC)" /> < statusCode code="completed" /> <component> <observation moodCode= "EVN" classCode="OBS"> <templateId root="840.1.644467.10.4.2 " /> <id nullFlavor="NA" /> <code codeSystem="local" code= "GLUMON" displayName="GLUCOSE (POC)" /> <statusCode code="completed" / > <effectiveTime value="481809985077" /> <value unit="mg/dL" xsi:type="PQ" value="100" /> <interpretationCode codeSystem="local" code="*" /> <referenceRange> <observationRange> <text>70-99</text> </observationRange> </referenceRange> </observation> </component> </organizer> </entry> <entry> < organizer moodCode="EVN" classCode="BATTERY"> <templateId root= "05.27.840.1.244383.10..22.4.1" /> <id nullFlavor="NA" /> <code codeSystem="local" code="GLUMON" displayName="GLUCOSE (POC)" /> < statusCode code="completed" /> <component> <observation moodCode= "EVN" classCode="OBS"> <templateId root="840.1.405251.01.28.22.4.2 " /> <id nullFlavor="NA" /> <code codeSystem="local" code= "GLUMON" displayName="GLUCOSE (POC)" /> <statusCode code="completed" / > <effectiveTime value="912051657231" /> <value unit="mg/dL" xsi:type="PQ" value="86" /> <referenceRange> < observationRange> <text>70-99</text> </observationRange > </referenceRange> </observation> </component> </ organizer> </entry> <entry> <organizer moodCode="EVN" classCode="BATTERY"> <templateId root="840.1.394493...4.1" /> <id nullFlavor= "NA" /> <code codeSystem="local" code="GLUMON" displayName="GLUCOSE (POC)" /> <statusCode code="completed" /> <component> <observation moodCode="EVN" classCode="OBS"> <templateId root= "05.27.840.1.778249.10..22.4.2" /> <id nullFlavor="NA" /> < code codeSystem="local" code="GLUMON" displayName="GLUCOSE (POC)" /> < statusCode code="completed" /> <effectiveTime value="188381730308" /> <value unit="mg/dL" xsi:type="PQ" value="105" /> < interpretationCode codeSystem="local" code="*" /> <referenceRange> <observationRange> <text>70-99</text> </ observationRange> </referenceRange> </observation> </ component> </organizer> </entry> <entry> <organizer moodCode="EVN" classCode="BATTERY"> <templateId root="216.840.1.092531.10.20.22.4.1" /> <id nullFlavor="NA" /> <code codeSystem="local" code="PTTH" displayName="PTT HEPARIN PROTOCOLS" /> <statusCode code="completed" /> <component> <observation moodCode="EVN" classCode="OBS"> < templateId root="216.840.1.067096.10.20.22.4.2" /> <id nullFlavor="NA " /> <code codeSystem="local" code="PTT" displayName="PARTIAL THROMBOPLASTIN TIME" /> <statusCode code="completed" /> < effectiveTime value="648542615794" /> <value unit="sec" xsi:type="PQ" value="74" /> <interpretationCode codeSystem="local" code="*" /> <referenceRange> <observationRange> <text>23-39</ text> </observationRange> </referenceRange> </ observation> </component> </organizer> </entry> <entry> <organizer moodCode="EVN" classCode="BATTERY"> <templateId root= "216.840.1.795354.10.20.22.4.1" /> <id nullFlavor="NA" /> <code codeSystem="local" code="GLUMON" displayName="GLUCOSE (POC)" /> < statusCode code="completed" /> <component> <observation moodCode= "EVN" classCode="OBS"> <templateId root="05.27.840.1.825085.10...4.2 " /> <id nullFlavor="NA" /> <code codeSystem="local" code= "GLUMON" displayName="GLUCOSE (POC)" /> <statusCode code="completed" / > <effectiveTime value="" /> <value unit="mg/dL" xsi:type="PQ" value="101" /> <interpretationCode codeSystem="local" code="*" /> <referenceRange> <observationRange> <text>70-99</text> </observationRange> </referenceRange> </observation> </component> </organizer> </entry> <entry> < organizer moodCode="EVN" classCode="BATTERY"> <templateId root= "840.1.981836.10..22.4.1" /> <id nullFlavor="NA" /> <code codeSystem="local" code="PTTH" displayName="PTT HEPARIN PROTOCOLS" /> < statusCode code="completed" /> <component> <observation moodCode= "EVN" classCode="OBS"> <templateId root="05.27.840.1.976356.10.4.2 " /> <id nullFlavor="NA" /> <code codeSystem="local" code="PTT " displayName="PARTIAL THROMBOPLASTIN TIME" /> <statusCode code= "completed" /> <effectiveTime value="446694037116" /> <value unit="sec" xsi:type="PQ" value="80" /> <interpretationCode codeSystem= "local" code="*" /> <referenceRange> <observationRange> <text>23-39</text> </observationRange> </ referenceRange> </observation> </component> </organizer> </entry > <entry> <organizer moodCode="EVN" classCode="BATTERY"> <templateId root="05.27.840.1.183889.10..22.4.1" /> <id nullFlavor="NA" /> <code codeSystem="local" code="GLUMON" displayName="GLUCOSE (POC)" /> < statusCode code="completed" /> <component> <observation moodCode= "EVN" classCode="OBS"> <templateId root="840.1.310388.01.28.22.4.2 " /> <id nullFlavor="NA" /> <code codeSystem="local" code= "GLUMON" displayName="GLUCOSE (POC)" /> <statusCode code="completed" / > <effectiveTime value="638671808966" /> <value unit="mg/dL" xsi:type="PQ" value="81" /> <referenceRange> < observationRange> <text>70-99</text> </observationRange > </referenceRange> </observation> </component> </ organizer> </entry> <entry> <organizer moodCode="EVN" classCode="BATTERY"> <templateId root="840.1.513843...4.1" /> <id nullFlavor= "NA" /> <code codeSystem="local" code="GLUMON" displayName="GLUCOSE (POC)" /> <statusCode code="completed" /> <component> <observation moodCode="EVN" classCode="OBS"> <templateId root= "05.27.840.1.004328.10..22.4.2" /> <id nullFlavor="NA" /> < code codeSystem="local" code="GLUMON" displayName="GLUCOSE (POC)" /> < statusCode code="completed" /> <effectiveTime value="328397843842" /> <value unit="mg/dL" xsi:type="PQ" value="92" /> < referenceRange> <observationRange> <text>70-99</text> </observationRange> </referenceRange> </observation> </component> </organizer> </entry> <entry> <organizer moodCode="EVN " classCode="BATTERY"> <templateId root="16.840.1.333392.10.20.22.4.1" / > <id nullFlavor="NA" /> <code codeSystem="local" code="GLUMON" displayName="GLUCOSE (POC)" /> <statusCode code="completed" /> < component> <observation moodCode="EVN" classCode="OBS"> < templateId root="05.27.840.1.774046.10..22.4.2" /> <id nullFlavor="NA " /> <code codeSystem="local" code="GLUMON" displayName="GLUCOSE (POC) " /> <statusCode code="completed" /> <effectiveTime value= "900463761070" /> <value unit="mg/dL" xsi:type="PQ" value="119" /> <interpretationCode codeSystem="local" code="*" /> < referenceRange> <observationRange> <text>70-99</text> </observationRange> </referenceRange> </observation> </component> </organizer> </entry> <entry> <organizer moodCode="EVN " classCode="BATTERY"> <templateId root="05.27.840.1.560282.10..22.4.1" / > <id nullFlavor="NA" /> <code codeSystem="local" code="GLUMON" displayName="GLUCOSE (POC)" /> <statusCode code="completed" /> < component> <observation moodCode="EVN" classCode="OBS"> < templateId root="216.840.1.530458.10..22.4.2" /> <id nullFlavor="NA " /> <code codeSystem="local" code="GLUMON" displayName="GLUCOSE (POC) " /> <statusCode code="completed" /> <effectiveTime value= "098024643334" /> <value unit="mg/dL" xsi:type="PQ" value="95" /> <referenceRange> <observationRange> <text>70-99</ text> </observationRange> </referenceRange> </ observation> </component> </organizer> </entry> <entry> <organizer moodCode="EVN" classCode="BATTERY"> <templateId root= "216.840.1.645212.10..22.4.1" /> <id nullFlavor="NA" /> <code codeSystem="local" code="CBC" displayName="CBC" /> <statusCode code= "completed" /> <component> <observation moodCode="EVN" classCode= "OBS"> <templateId root="216.840.1.929794.10..22.4.2" /> < id nullFlavor="NA" /> <code codeSystem="local" code="MCH" displayName= "MEAN CELL HGB" /> <statusCode code="completed" /> < effectiveTime value="859520857017" /> <value unit="pg" xsi:type="PQ" value="26.8" /> <interpretationCode codeSystem="local" code="*" /> <referenceRange> <observationRange> <text>27.0- 33.0</text> </observationRange> </referenceRange> </ observation> </component> <component> <observation moodCode= "EVN" classCode="OBS"> <templateId root="16.840.1.810590.10.2022.4.2 " /> <id nullFlavor="NA" /> <code codeSystem="local" code= "[facility]CHC" displayName="MEAN CELL HGB CONCENTRATION" /> <statusCode code= "completed" /> <effectiveTime value="" /> <value unit="g/dL" xsi:type="PQ" value="32.3" /> <referenceRange> < observationRange> <text>32.0-37.0</text> </ observationRange> </referenceRange> </observation> </ component> <component> <observation moodCode="EVN" classCode="OBS"> <templateId root="05.27.840.1.672103.10.22.4.2" /> <id nullFlavor="NA" /> <code codeSystem="local" code="MCV" displayName= "MEAN CELL VOLUME" /> <statusCode code="completed" /> < effectiveTime value="" /> <value unit="fl" xsi:type="PQ" value="83.0" /> <referenceRange> <observationRange> <text>80.0-100.0</text> </observationRange> </ referenceRange> </observation> </component> <component> <observation moodCode="EVN" classCode="OBS"> <templateId root= "05.27.840.1.951618.10.20.22.4.2" /> <id nullFlavor="NA" /> < code codeSystem="local" code="RBC" displayName="RED BLOOD CELL" /> < statusCode code="completed" /> <effectiveTime value="" /> <value unit="m/cumm" xsi:type="PQ" value="2.76" /> < interpretationCode codeSystem="local" code="*" /> <referenceRange> <observationRange> <text>4.00-6.00</text> </ observationRange> </referenceRange> </observation> </ component> <component> <observation moodCode="EVN" classCode="OBS"> <templateId root="216.840.1.276723.10.20.22.4.2" /> <id nullFlavor="NA" /> <code codeSystem="local" code="RDW" displayName=" RED CELL DISTRIBUTION WIDTH" /> <statusCode code="completed" /> <effectiveTime value="987679447935" /> <value unit="%" xsi:type= "PQ" value="15.2" /> <referenceRange> <observationRange> <text>11.0-15.6</text> </observationRange> </ referenceRange> </observation> </component> <component> <observation moodCode="EVN" classCode="OBS"> <templateId root= "05.27.840.1.901193.10..22.4.2" /> <id nullFlavor="NA" /> < code codeSystem="local" code="WBC" displayName="WHITE BLOOD CELL" /> < statusCode code="completed" /> <effectiveTime value="473687875185" /> <value unit="k/cumm" xsi:type="PQ" value="9.6" /> < referenceRange> <observationRange> <text>5.0-10.0</text > </observationRange> </referenceRange> </observation > </component> <component> <observation moodCode="EVN" classCode="OBS"> <templateId root="16.840.1.678887.10.20.22.4.2" /> <id nullFlavor="NA" /> <code codeSystem="local" code="HGBT" displayName="HEMOGLOBIN" /> <statusCode code="completed" /> < effectiveTime value="" /> <value unit="gm/dL" xsi:type="PQ " value="7.4" /> <interpretationCode codeSystem="local" code="*" /> <referenceRange> <observationRange> <text>12.0- 16.0</text> </observationRange> </referenceRange> </ observation> </component> <component> <observation moodCode= "EVN" classCode="OBS"> <templateId root="2.16.840.1.822365.10.20.22.4.2 " /> <id nullFlavor="NA" /> <code codeSystem="local" code= "HCTT" displayName="HEMATOCRIT" /> <statusCode code="completed" /> <effectiveTime value="" /> <value unit="%" xsi: type="PQ" value="22.9" /> <interpretationCode codeSystem="local" code= "*" /> <referenceRange> <observationRange> < text>37.0-47.0</text> </observationRange> </referenceRange> </observation> </component> <component> <observation moodCode="EVN" classCode="OBS"> <templateId root= "216.840.1.453945.10.20.22.4.2" /> <id nullFlavor="NA" /> < code codeSystem="local" code="PLT" displayName="PLATELET COUNT" /> < statusCode code="completed" /> <effectiveTime value="" /> <value unit="k/cumm" xsi:type="PQ" value="257" /> < referenceRange> <observationRange> <text>150-400</text> </observationRange> </referenceRange> </observation > </component> </organizer> </entry> <entry> <organizer moodCode= "EVN" classCode="BATTERY"> <templateId root="05.27.840.1.190423.10..4.1 " /> <id nullFlavor="NA" /> <code codeSystem="local" code="PTTH" displayName="PTT HEPARIN PROTOCOLS" /> <statusCode code="completed" /> <component> <observation moodCode="EVN" classCode="OBS"> < templateId root="840.1.156573.01.28.22.4.2" /> <id nullFlavor="NA " /> <code codeSystem="local" code="PTT" displayName="PARTIAL THROMBOPLASTIN TIME" /> <statusCode code="completed" /> < effectiveTime value="608945052353" /> <value unit="sec" xsi:type="PQ" value="74" /> <interpretationCode codeSystem="local" code="*" /> <referenceRange> <observationRange> <text>23-39</ text> </observationRange> </referenceRange> </ observation> </component> </organizer> </entry> <entry> <organizer moodCode="EVN" classCode="BATTERY"> <templateId root= "05.27.840.1.446028.01.28.22.4.1" /> <id nullFlavor="NA" /> <code codeSystem="local" code="GLUMON" displayName="GLUCOSE (POC)" /> < statusCode code="completed" /> <component> <observation moodCode= "EVN" classCode="OBS"> <templateId root="05.27.840.1.418968.10...4.2 " /> <id nullFlavor="NA" /> <code codeSystem="local" code= "GLUMON" displayName="GLUCOSE (POC)" /> <statusCode code="completed" / > <effectiveTime value="181822457557" /> <value unit="mg/dL" xsi:type="PQ" value="120" /> <interpretationCode codeSystem="local" code="*" /> <referenceRange> <observationRange> <text>70-99</text> </observationRange> </referenceRange> </observation> </component> </organizer> </entry> <entry> < organizer moodCode="EVN" classCode="BATTERY"> <templateId root= "16.840.1.600091.10.20.22.4.1" /> <id nullFlavor="NA" /> <code codeSystem="local" code="PTTH" displayName="PTT HEPARIN PROTOCOLS" /> < statusCode code="completed" /> <component> <observation moodCode= "EVN" classCode="OBS"> <templateId root="05.27.840.1.964889.10.20.22.4.2 " /> <id nullFlavor="NA" /> <code codeSystem="local" code="PTT " displayName="PARTIAL THROMBOPLASTIN TIME" /> <statusCode code= "completed" /> <effectiveTime value="822028434214" /> <value unit="sec" xsi:type="PQ" value="135" /> <interpretationCode codeSystem= "local" code="" /> <referenceRange> <observationRange> <text>23-39</text> </observationRange> </ referenceRange> </observation> </component> </organizer> </entry > <entry> <organizer moodCode="EVN" classCode="BATTERY"> <templateId root="05.27.840.1.974285.10.20.22.4.1" /> <id nullFlavor="NA" /> <code codeSystem="local" code="GLUMON" displayName="GLUCOSE (POC)" /> < statusCode code="completed" /> <component> <observation moodCode= "EVN" classCode="OBS"> <templateId root="216.840.1.124831.10..22.4.2 " /> <id nullFlavor="NA" /> <code codeSystem="local" code= "GLUMON" displayName="GLUCOSE (POC)" /> <statusCode code="completed" / > <effectiveTime value="902399448841" /> <value unit="mg/dL" xsi:type="PQ" value="90" /> <referenceRange> < observationRange> <text>70-99</text> </observationRange > </referenceRange> </observation> </component> </ organizer> </entry> <entry> <organizer moodCode="EVN" classCode="BATTERY"> <templateId root="216.840.1.556237.10..22.4.1" /> <id nullFlavor= "NA" /> <code codeSystem="local" code="PTTH" displayName="PTT HEPARIN PROTOCOLS" /> <statusCode code="completed" /> <component> < observation moodCode="EVN" classCode="OBS"> <templateId root= "2.16.840.1.521499.10.20.22.4.2" /> <id nullFlavor="NA" /> < code codeSystem="local" code="PTT" displayName="PARTIAL THROMBOPLASTIN TIME" /> <statusCode code="completed" /> <effectiveTime value= "621474831778" /> <value unit="sec" xsi:type="PQ" value="45" /> <interpretationCode codeSystem="local" code="*" /> <referenceRange> <observationRange> <text>23-39</text> </ observationRange> </referenceRange> </observation> </ component> </organizer> </entry> <entry> <organizer moodCode="EVN" classCode="BATTERY"> <templateId root="05.27.840.1.406764.01.28.22.4.1" /> <id nullFlavor="NA" /> <code codeSystem="local" code="GLUMON" displayName="GLUCOSE (POC)" /> <statusCode code="completed" /> < component> <observation moodCode="EVN" classCode="OBS"> < templateId root="840.1.035914.01.28.22.4.2" /> <id nullFlavor="NA " /> <code codeSystem="local" code="GLUMON" displayName="GLUCOSE (POC) " /> <statusCode code="completed" /> <effectiveTime value= "598026310908" /> <value unit="mg/dL" xsi:type="PQ" value="100" /> <interpretationCode codeSystem="local" code="*" /> < referenceRange> <observationRange> <text>70-99</text> </observationRange> </referenceRange> </observation> </component> </organizer> </entry> <entry> <organizer moodCode="EVN " classCode="BATTERY"> <templateId root="840.1.598633.01.28.22.4.1" / > <id nullFlavor="NA" /> <code codeSystem="local" code="PTTH" displayName="PTT HEPARIN PROTOCOLS" /> <statusCode code="completed" /> <component> <observation moodCode="EVN" classCode="OBS"> < templateId root="05.27.840.1.851607.01.28.22.4.2" /> <id nullFlavor="NA " /> <code codeSystem="local" code="PTT" displayName="PARTIAL THROMBOPLASTIN TIME" /> <statusCode code="completed" /> < effectiveTime value="005998916169" /> <value unit="sec" xsi:type="PQ" value="95" /> <interpretationCode codeSystem="local" code="*" /> <referenceRange> <observationRange> <text>23-39</ text> </observationRange> </referenceRange> </ observation> </component> </organizer> </entry> <entry> <organizer moodCode="EVN" classCode="BATTERY"> <templateId root= "216.840.1.203950.10..22.4.1" /> <id nullFlavor="NA" /> <code codeSystem="local" code="GLUMON" displayName="GLUCOSE (POC)" /> < statusCode code="completed" /> <component> <observation moodCode= "EVN" classCode="OBS"> <templateId root="216.840.1.735907.10..22.4.2 " /> <id nullFlavor="NA" /> <code codeSystem="local" code= "GLUMON" displayName="GLUCOSE (POC)" /> <statusCode code="completed" / > <effectiveTime value="991038136344" /> <value unit="mg/dL" xsi:type="PQ" value="97" /> <referenceRange> < observationRange> <text>70-99</text> </observationRange > </referenceRange> </observation> </component> </ organizer> </entry> <entry> <organizer moodCode="EVN" classCode="BATTERY"> <templateId root="216.840.1.693332.10..22.4.1" /> <id nullFlavor= "NA" /> <code codeSystem="local" code="GLUMON" displayName="GLUCOSE (POC)" /> <statusCode code="completed" /> <component> <observation moodCode="EVN" classCode="OBS"> <templateId root= "216.840.1.915968.10.20.22.4.2" /> <id nullFlavor="NA" /> < code codeSystem="local" code="GLUMON" displayName="GLUCOSE (POC)" /> < statusCode code="completed" /> <effectiveTime value="223466360514" /> <value unit="mg/dL" xsi:type="PQ" value="79" /> < referenceRange> <observationRange> <text>70-99</text> </observationRange> </referenceRange> </observation> </component> </organizer> </entry> <entry> <organizer moodCode="EVN " classCode="BATTERY"> <templateId root="216.840.1.865866.10.20.22.4.1" / > <id nullFlavor="NA" /> <code codeSystem="local" code="GLUMON" displayName="GLUCOSE (POC)" /> <statusCode code="completed" /> < component> <observation moodCode="EVN" classCode="OBS"> < templateId root="216.840.1.213995.10.20.22.4.2" /> <id nullFlavor="NA " /> <code codeSystem="local" code="GLUMON" displayName="GLUCOSE (POC) " /> <statusCode code="completed" /> <effectiveTime value= "823981668842" /> <value unit="mg/dL" xsi:type="PQ" value="79" /> <referenceRange> <observationRange> <text>70-99</ text> </observationRange> </referenceRange> </ observation> </component> </organizer> </entry> <entry> <organizer moodCode="EVN" classCode="BATTERY"> <templateId root= "840.1.825802.10.4.1" /> <id nullFlavor="NA" /> <code codeSystem="local" code="GLUMON" displayName="GLUCOSE (POC)" /> < statusCode code="completed" /> <component> <observation moodCode= "EVN" classCode="OBS"> <templateId root="840.1.021076.01.28.22.4.2 " /> <id nullFlavor="NA" /> <code codeSystem="local" code= "GLUMON" displayName="GLUCOSE (POC)" /> <statusCode code="completed" / > <effectiveTime value="940865277710" /> <value unit="mg/dL" xsi:type="PQ" value="111" /> <interpretationCode codeSystem="local" code="*" /> <referenceRange> <observationRange> <text>70-99</text> </observationRange> </referenceRange> </observation> </component> </organizer> </entry> <entry> < organizer moodCode="EVN" classCode="BATTERY"> <templateId root= "840.1.669858.01.28.22.4.1" /> <id nullFlavor="NA" /> <code codeSystem="local" code="GLUMON" displayName="GLUCOSE (POC)" /> < statusCode code="completed" /> <component> <observation moodCode= "EVN" classCode="OBS"> <templateId root="840.1.591478.01.28.22.4.2 " /> <id nullFlavor="NA" /> <code codeSystem="local" code= "GLUMON" displayName="GLUCOSE (POC)" /> <statusCode code="completed" / > <effectiveTime value="383122438080" /> <value unit="mg/dL" xsi:type="PQ" value="128" /> <interpretationCode codeSystem="local" code="*" /> <referenceRange> <observationRange> <text>70-99</text> </observationRange> </referenceRange> </observation> </component> </organizer> </entry> <entry> < organizer moodCode="EVN" classCode="BATTERY"> <templateId root= "16.840.1.694916.10..22.4.1" /> <id nullFlavor="NA" /> <code codeSystem="local" code="PTTH" displayName="PTT HEPARIN PROTOCOLS" /> < statusCode code="completed" /> <component> <observation moodCode= "EVN" classCode="OBS"> <templateId root="216.840.1.792060.10..22.4.2 " /> <id nullFlavor="NA" /> <code codeSystem="local" code="PTT " displayName="PARTIAL THROMBOPLASTIN TIME" /> <statusCode code= "completed" /> <effectiveTime value="924240033409" /> <value unit="sec" xsi:type="PQ" value="78" /> <interpretationCode codeSystem= "local" code="*" /> <referenceRange> <observationRange> <text>23-39</text> </observationRange> </ referenceRange> </observation> </component> </organizer> </entry > <entry> <organizer moodCode="EVN" classCode="BATTERY"> <templateId root="16.840.1.992522.10..22.4.1" /> <id nullFlavor="NA" /> <code codeSystem="local" code="CBC" displayName="CBC" /> <statusCode code= "completed" /> <component> <observation moodCode="EVN" classCode= "OBS"> <templateId root="05.27.840.1.728406.10.2022.4.2" /> < id nullFlavor="NA" /> <code codeSystem="local" code="MCH" displayName= "MEAN CELL HGB" /> <statusCode code="completed" /> < effectiveTime value="" /> <value unit="pg" xsi:type="PQ" value="26.0" /> <interpretationCode codeSystem="local" code="*" /> <referenceRange> <observationRange> <text>27.0- 33.0</text> </observationRange> </referenceRange> </ observation> </component> <component> <observation moodCode= "EVN" classCode="OBS"> <templateId root="840.1.876118.1022.4.2 " /> <id nullFlavor="NA" /> <code codeSystem="local" code= "MCHC" displayName="MEAN CELL HGB CONCENTRATION" /> <statusCode code= "completed" /> <effectiveTime value="" /> <value unit="g/dL" xsi:type="PQ" value="31.3" /> <interpretationCode codeSystem="local" code="*" /> <referenceRange> < observationRange> <text>32.0-37.0</text> </ observationRange> </referenceRange> </observation> </ component> <component> <observation moodCode="EVN" classCode="OBS"> <templateId root="840.1.935599.10.2022.4.2" /> <id nullFlavor="NA" /> <code codeSystem="local" code="MCV" displayName= "MEAN CELL VOLUME" /> <statusCode code="completed" /> < effectiveTime value="987377265099" /> <value unit="fl" xsi:type="PQ" value="83.2" /> <referenceRange> <observationRange> <text>80.0-100.0</text> </observationRange> </ referenceRange> </observation> </component> <component> <observation moodCode="EVN" classCode="OBS"> <templateId root= "216.840.1.819336.10.20.22.4.2" /> <id nullFlavor="NA" /> < code codeSystem="local" code="RBC" displayName="RED BLOOD CELL" /> < statusCode code="completed" /> <effectiveTime value="039324922773" /> <value unit="m/cumm" xsi:type="PQ" value="2.50" /> < interpretationCode codeSystem="local" code="*" /> <referenceRange> <observationRange> <text>4.00-6.00</text> </ observationRange> </referenceRange> </observation> </ component> <component> <observation moodCode="EVN" classCode="OBS"> <templateId root="05.27.840.1.664107.10..4.2" /> <id nullFlavor="NA" /> <code codeSystem="local" code="RDW" displayName=" RED CELL DISTRIBUTION WIDTH" /> <statusCode code="completed" /> <effectiveTime value="835510457219" /> <value unit="%" xsi:type= "PQ" value="15.0" /> <referenceRange> <observationRange> <text>11.0-15.6</text> </observationRange> </ referenceRange> </observation> </component> <component> <observation moodCode="EVN" classCode="OBS"> <templateId root= "216.840.1.603134.10..22.4.2" /> <id nullFlavor="NA" /> < code codeSystem="local" code="WBC" displayName="WHITE BLOOD CELL" /> < statusCode code="completed" /> <effectiveTime value="720504706617" /> <value unit="k/cumm" xsi:type="PQ" value="7.3" /> < referenceRange> <observationRange> <text>5.0-10.0</text > </observationRange> </referenceRange> </observation > </component> <component> <observation moodCode="EVN" classCode="OBS"> <templateId root="2.16.840.1.354606.10.20.22.4.2" /> <id nullFlavor="NA" /> <code codeSystem="local" code="HGBT" displayName="HEMOGLOBIN" /> <statusCode code="completed" /> < effectiveTime value="240239513159" /> <value unit="gm/dL" xsi:type="PQ " value="6.5" /> <interpretationCode codeSystem="local" code="*" /> <referenceRange> <observationRange> <text>12.0- 16.0</text> </observationRange> </referenceRange> </ observation> </component> <component> <observation moodCode= "EVN" classCode="OBS"> <templateId root="216.840.1.851040.10.20.22.4.2 " /> <id nullFlavor="NA" /> <code codeSystem="local" code= "HCTT" displayName="HEMATOCRIT" /> <statusCode code="completed" /> <effectiveTime value="379707313433" /> <value unit="%" xsi: type="PQ" value="20.8" /> <interpretationCode codeSystem="local" code= "*" /> <referenceRange> <observationRange> < text>37.0-47.0</text> </observationRange> </referenceRange> </observation> </component> <component> <observation moodCode="EVN" classCode="OBS"> <templateId root= "2.16.840.1.363718.10..22.4.2" /> <id nullFlavor="NA" /> < code codeSystem="local" code="PLT" displayName="PLATELET COUNT" /> < statusCode code="completed" /> <effectiveTime value="206375502777" /> <value unit="k/cumm" xsi:type="PQ" value="287" /> < referenceRange> <observationRange> <text>150-400</text> </observationRange> </referenceRange> </observation > </component> </organizer> </entry> <entry> <organizer moodCode= "EVN" classCode="BATTERY"> <templateId root="2.16.840.1.353856.10..22.4.1 " /> <id nullFlavor="NA" /> <code codeSystem="local" code="PTTH" displayName="PTT HEPARIN PROTOCOLS" /> <statusCode code="completed" /> <component> <observation moodCode="EVN" classCode="OBS"> < templateId root="2.16.840.1.956795.10.20.22.4.2" /> <id nullFlavor="NA " /> <code codeSystem="local" code="PTT" displayName="PARTIAL THROMBOPLASTIN TIME" /> <statusCode code="completed" /> < effectiveTime value="213621702722" /> <value unit="sec" xsi:type="PQ" value="83" /> <interpretationCode codeSystem="local" code="*" /> <referenceRange> <observationRange> <text>23-39</ text> </observationRange> </referenceRange> </ observation> </component> </organizer> </entry> <entry> <organizer moodCode="EVN" classCode="BATTERY"> <templateId root= "16.840.1.193981.10..22.4.1" /> <id nullFlavor="NA" /> <code codeSystem="local" code="METAB" displayName="METABOLIC PANEL, BASIC" /> < statusCode code="completed" /> <component> <observation moodCode= "EVN" classCode="OBS"> <templateId root="05.27.840.1.267220.01.28.22.4.2 " /> <id nullFlavor="NA" /> <code codeSystem="local" code="K" displayName="POTASSIUM" /> <statusCode code="completed" /> < effectiveTime value="144646228088" /> <value unit="mmol/L" xsi:type="PQ " value="3.5" /> <referenceRange> <observationRange> <text>3.5-5.3</text> </observationRange> </ referenceRange> </observation> </component> <component> <observation moodCode="EVN" classCode="OBS"> <templateId root= "05.27.840.1.873001.01.28.22.4.2" /> <id nullFlavor="NA" /> < code codeSystem="local" code="eGFR" displayName="EST GFR (MDRD)" /> < statusCode code="completed" /> <effectiveTime value="059665078047" /> <value unit="mL/min" xsi:type="PQ" value="> 60" /> < referenceRange> <observationRange> <text>> 59</text> </observationRange> </referenceRange> </observation > </component> <component> <observation moodCode="EVN" classCode="OBS"> <templateId root="05.27.840.1.716545.01.28.22.4.2" /> <id nullFlavor="NA" /> <code codeSystem="local" code="GAP" displayName="ANION GAP" /> <statusCode code="completed" /> < effectiveTime value="425421365570" /> <value unit="mmol/L" xsi:type="PQ " value="8" /> <referenceRange> <observationRange> <text>5-15</text> </observationRange> </referenceRange > </observation> </component> <component> <observation moodCode="EVN" classCode="OBS"> <templateId root= "2.16.840.1.313531.10..22.4.2" /> <id nullFlavor="NA" /> < code codeSystem="local" code="eCrCl" displayName="EST CrCl (CG)" /> < statusCode code="completed" /> <effectiveTime value="421090784127" /> <value unit="mL/min" xsi:type="PQ" value="> 60" /> < referenceRange> <observationRange> <text>> 59</text> </observationRange> </referenceRange> </observation > </component> <component> <observation moodCode="EVN" classCode="OBS"> <templateId root="2.16.840.1.699070.10..22.4.2" /> <id nullFlavor="NA" /> <code codeSystem="local" code="GLU" displayName="GLUCOSE" /> <statusCode code="completed" /> < effectiveTime value="" /> <value unit="mg/dL" xsi:type="PQ " value="101" /> <interpretationCode codeSystem="local" code="*" /> <referenceRange> <observationRange> <text>70-99</ text> </observationRange> </referenceRange> </ observation> </component> <component> <observation moodCode= "EVN" classCode="OBS"> <templateId root="216.840.1.231714.10.22.4.2 " /> <id nullFlavor="NA" /> <code codeSystem="local" code="CA " displayName="CALCIUM" /> <statusCode code="completed" /> < effectiveTime value="" /> <value unit="mg/dL" xsi:type="PQ " value="7.8" /> <interpretationCode codeSystem="local" code="*" /> <referenceRange> <observationRange> <text>8.5- 10.1</text> </observationRange> </referenceRange> </ observation> </component> <component> <observation moodCode= "EVN" classCode="OBS"> <templateId root="05.27.840.1.129665.01.28.22.4.2 " /> <id nullFlavor="NA" /> <code codeSystem="local" code="BUN " displayName="BLOOD UREA NITROGEN" /> <statusCode code="completed" /> <effectiveTime value="" /> <value unit="mg/dL" xsi:type="PQ" value="4" /> <interpretationCode codeSystem="local" code= "*" /> <referenceRange> <observationRange> < text>7-20</text> </observationRange> </referenceRange> </observation> </component> <component> <observation moodCode="EVN" classCode="OBS"> <templateId root= "16.840.1.373404.1022.4.2" /> <id nullFlavor="NA" /> < code codeSystem="local" code="CREAT" displayName="CREATININE" /> < statusCode code="completed" /> <effectiveTime value="" /> <value unit="mg/dL" xsi:type="PQ" value="0.4" /> < interpretationCode codeSystem="local" code="*" /> <referenceRange> <observationRange> <text>0.6-1.0</text> </ observationRange> </referenceRange> </observation> </ component> <component> <observation moodCode="EVN" classCode="OBS"> <templateId root="16.840.1.595750.10..4.2" /> <id nullFlavor="NA" /> <code codeSystem="local" code="NA" displayName= "SODIUM" /> <statusCode code="completed" /> <effectiveTime value="" /> <value unit="mmol/L" xsi:type="PQ" value="137" /> <referenceRange> <observationRange> <text> 135-148</text> </observationRange> </referenceRange> </observation> </component> <component> <observation moodCode= "EVN" classCode="OBS"> <templateId root="05.27.840.1.147661.01.28.22.4.2 " /> <id nullFlavor="NA" /> <code codeSystem="local" code="CL " displayName="CHLORIDE" /> <statusCode code="completed" /> < effectiveTime value="" /> <value unit="mmol/L" xsi:type="PQ " value="104" /> <referenceRange> <observationRange> <text>98-110</text> </observationRange> </ referenceRange> </observation> </component> <component> <observation moodCode="EVN" classCode="OBS"> <templateId root= "05.27.840.1.142102.10.22.4.2" /> <id nullFlavor="NA" /> < code codeSystem="local" code="CO2" displayName="CARBON DIOXIDE" /> < statusCode code="completed" /> <effectiveTime value="911138166248" /> <value unit="mmol/L" xsi:type="PQ" value="25" /> < referenceRange> <observationRange> <text>21-32</text> </observationRange> </referenceRange> </observation> </component> </organizer> </entry> <entry> <organizer moodCode="EVN " classCode="BATTERY"> <templateId root="2.16.840.1.681425.10..22.4.1" / > <id nullFlavor="NA" /> <code codeSystem="local" code="GLUMON" displayName="GLUCOSE (POC)" /> <statusCode code="completed" /> < component> <observation moodCode="EVN" classCode="OBS"> < templateId root="2.16.840.1.673571.10..22.4.2" /> <id nullFlavor="NA " /> <code codeSystem="local" code="GLUMON" displayName="GLUCOSE (POC) " /> <statusCode code="completed" /> <effectiveTime value= "809689497811" /> <value unit="mg/dL" xsi:type="PQ" value="92" /> <referenceRange> <observationRange> <text>70-99</ text> </observationRange> </referenceRange> </ observation> </component> </organizer> </entry> <entry> <organizer moodCode="EVN" classCode="BATTERY"> <templateId root= "216.840.1.143702.10..22.4.1" /> <id nullFlavor="NA" /> <code codeSystem="local" code="GLUMON" displayName="GLUCOSE (POC)" /> < statusCode code="completed" /> <component> <observation moodCode= "EVN" classCode="OBS"> <templateId root="216.840.1.753708.10..22.4.2 " /> <id nullFlavor="NA" /> <code codeSystem="local" code= "GLUMON" displayName="GLUCOSE (POC)" /> <statusCode code="completed" / > <effectiveTime value="117289890217" /> <value unit="mg/dL" xsi:type="PQ" value="120" /> <interpretationCode codeSystem="local" code="*" /> <referenceRange> <observationRange> <text>70-99</text> </observationRange> </referenceRange> </observation> </component> </organizer> </entry> <entry> < organizer moodCode="EVN" classCode="BATTERY"> <templateId root= "216.840.1.527525.10..22.4.1" /> <id nullFlavor="NA" /> <code codeSystem="local" code="VANCT" displayName="VANCOMYCIN TROUGH" /> < statusCode code="completed" /> <component> <observation moodCode= "EVN" classCode="OBS"> <templateId root="216.840.1.140202.10..22.4.2 " /> <id nullFlavor="NA" /> <code codeSystem="local" code= "VANCT" displayName="VANCOMYCIN TROUGH" /> <statusCode code="completed " /> <effectiveTime value="732625833725" /> <value unit="mcg/ mL" xsi:type="PQ" value="9.3" /> <referenceRange> < observationRange> <text>5.0-20.0</text> </ observationRange> </referenceRange> </observation> </ component> </organizer> </entry> <entry> <organizer moodCode="EVN" classCode="BATTERY"> <templateId root="05.27.840.1.570671.10..4.1" /> <id nullFlavor="NA" /> <code codeSystem="local" code="GLUMON" displayName="GLUCOSE (POC)" /> <statusCode code="completed" /> < component> <observation moodCode="EVN" classCode="OBS"> < templateId root="840.1.132078.01.28.22.4.2" /> <id nullFlavor="NA " /> <code codeSystem="local" code="GLUMON" displayName="GLUCOSE (POC) " /> <statusCode code="completed" /> <effectiveTime value= "538657946418" /> <value unit="mg/dL" xsi:type="PQ" value="93" /> <referenceRange> <observationRange> <text>70-99</ text> </observationRange> </referenceRange> </ observation> </component> </organizer> </entry> <entry> <organizer moodCode="EVN" classCode="BATTERY"> <templateId root= "840.1.801071.01.28.22.4.1" /> <id nullFlavor="NA" /> <code codeSystem="local" code="GLUMON" displayName="GLUCOSE (POC)" /> < statusCode code="completed" /> <component> <observation moodCode= "EVN" classCode="OBS"> <templateId root="05.27.840.1.051163...4.2 " /> <id nullFlavor="NA" /> <code codeSystem="local" code= "GLUMON" displayName="GLUCOSE (POC)" /> <statusCode code="completed" / > <effectiveTime value="866328878645" /> <value unit="mg/dL" xsi:type="PQ" value="120" /> <interpretationCode codeSystem="local" code="*" /> <referenceRange> <observationRange> <text>70-99</text> </observationRange> </referenceRange> </observation> </component> </organizer> </entry> <entry> < organizer moodCode="EVN" classCode="BATTERY"> <templateId root= "05.27.840.1.897134.10..22.4.1" /> <id nullFlavor="NA" /> <code codeSystem="local" code="CBC" displayName="CBC" /> <statusCode code= "completed" /> <component> <observation moodCode="EVN" classCode= "OBS"> <templateId root="16.840.1.621323...4.2" /> < id nullFlavor="NA" /> <code codeSystem="local" code="MCH" displayName= "MEAN CELL HGB" /> <statusCode code="completed" /> < effectiveTime value="340397109652" /> <value unit="pg" xsi:type="PQ" value="26.8" /> <interpretationCode codeSystem="local" code="*" /> <referenceRange> <observationRange> <text>27.0- 33.0</text> </observationRange> </referenceRange> </ observation> </component> <component> <observation moodCode= "EVN" classCode="OBS"> <templateId root="05.27.840.1.152801.10.22.4.2 " /> <id nullFlavor="NA" /> <code codeSystem="local" code= "MCHC" displayName="MEAN CELL HGB CONCENTRATION" /> <statusCode code= "completed" /> <effectiveTime value="706173384878" /> <value unit="g/dL" xsi:type="PQ" value="32.3" /> <referenceRange> < observationRange> <text>32.0-37.0</text> </ observationRange> </referenceRange> </observation> </ component> <component> <observation moodCode="EVN" classCode="OBS"> <templateId root="216.840.1.479983.10.22.4.2" /> <id nullFlavor="NA" /> <code codeSystem="local" code="MCV" displayName= "MEAN CELL VOLUME" /> <statusCode code="completed" /> < effectiveTime value="731033794109" /> <value unit="fl" xsi:type="PQ" value="83.1" /> <referenceRange> <observationRange> <text>80.0-100.0</text> </observationRange> </ referenceRange> </observation> </component> <component> <observation moodCode="EVN" classCode="OBS"> <templateId root= "216.840.1.386030....4.2" /> <id nullFlavor="NA" /> < code codeSystem="local" code="RBC" displayName="RED BLOOD CELL" /> < statusCode code="completed" /> <effectiveTime value="809179400535" /> <value unit="m/cumm" xsi:type="PQ" value="2.72" /> < interpretationCode codeSystem="local" code="*" /> <referenceRange> <observationRange> <text>4.00-6.00</text> </ observationRange> </referenceRange> </observation> </ component> <component> <observation moodCode="EVN" classCode="OBS"> <templateId root="216.840.1.182784.10.4.2" /> <id nullFlavor="NA" /> <code codeSystem="local" code="RDW" displayName=" RED CELL DISTRIBUTION WIDTH" /> <statusCode code="completed" /> <effectiveTime value="" /> <value unit="%" xsi:type= "PQ" value="15.1" /> <referenceRange> <observationRange> <text>11.0-15.6</text> </observationRange> </ referenceRange> </observation> </component> <component> <observation moodCode="EVN" classCode="OBS"> <templateId root= "2.16.840.1.758401.01.28.224.2" /> <id nullFlavor="NA" /> < code codeSystem="local" code="WBC" displayName="WHITE BLOOD CELL" /> < statusCode code="completed" /> <effectiveTime value="" /> <value unit="k/cumm" xsi:type="PQ" value="7.1" /> < referenceRange> <observationRange> <text>5.0-10.0</text > </observationRange> </referenceRange> </observation > </component> <component> <observation moodCode="EVN" classCode="OBS"> <templateId root="[id number]" /> <id nullFlavor="NA" /> <code codeSystem="local" code="HGBT" displayName="HEMOGLOBIN" /> <statusCode code="completed" /> < effectiveTime value="" /> <value unit="gm/dL" xsi:type="PQ " value="7.3" /> <interpretationCode codeSystem="local" code="*" /> <referenceRange> <observationRange> <text>12.0- 16.0</text> </observationRange> </referenceRange> </ observation> </component> <component> <observation moodCode= "EVN" classCode="OBS"> <templateId root="216.840.1.060929.10..22.4.2 " /> <id nullFlavor="NA" /> <code codeSystem="local" code= "HCTT" displayName="HEMATOCRIT" /> <statusCode code="completed" /> <effectiveTime value="" /> <value unit="%" xsi: type="PQ" value="22.6" /> <interpretationCode codeSystem="local" code= "*" /> <referenceRange> <observationRange> < text>37.0-47.0</text> </observationRange> </referenceRange> </observation> </component> <component> <observation moodCode="EVN" classCode="OBS"> <templateId root= "2.840.1.697375.10.4.2" /> <id nullFlavor="NA" /> < code codeSystem="local" code="PLT" displayName="PLATELET COUNT" /> < statusCode code="completed" /> <effectiveTime value="" /> <value unit="k/cumm" xsi:type="PQ" value="320" /> < referenceRange> <observationRange> <text>150-400</text> </observationRange> </referenceRange> </observation > </component> </organizer> </entry> <entry> <organizer moodCode= "EVN" classCode="BATTERY"> <templateId root="216.840.1.929273.10..22.4.1 " /> <id nullFlavor="NA" /> <code codeSystem="local" code="PTTH" displayName="PTT HEPARIN PROTOCOLS" /> <statusCode code="completed" /> <component> <observation moodCode="EVN" classCode="OBS"> < templateId root="2.16.840.1.144489.10.20.22.4.2" /> <id nullFlavor="NA " /> <code codeSystem="local" code="PTT" displayName="PARTIAL THROMBOPLASTIN TIME" /> <statusCode code="completed" /> < effectiveTime value="809946193641" /> <value unit="sec" xsi:type="PQ" value="102" /> <interpretationCode codeSystem="local" code="*" /> <referenceRange> <observationRange> <text>23-39</ text> </observationRange> </referenceRange> </ observation> </component> </organizer> </entry> <entry> <organizer moodCode="EVN" classCode="BATTERY"> <templateId root= "2.16.840.1.399163.10.20.22.4.1" /> <id nullFlavor="NA" /> <code codeSystem="local" code="GLUMON" displayName="GLUCOSE (POC)" /> < statusCode code="completed" /> <component> <observation moodCode= "EVN" classCode="OBS"> <templateId root="2.16.840.1.124976.10.20.22.4.2 " /> <id nullFlavor="NA" /> <code codeSystem="local" code= "GLUMON" displayName="GLUCOSE (POC)" /> <statusCode code="completed" / > <effectiveTime value="232364307363" /> <value unit="mg/dL" xsi:type="PQ" value="106" /> <interpretationCode codeSystem="local" code="*" /> <referenceRange> <observationRange> <text>70-99</text> </observationRange> </referenceRange> </observation> </component> </organizer> </entry> <entry> < organizer moodCode="EVN" classCode="BATTERY"> <templateId root= "05.27.840.1.634417.10..4.1" /> <id nullFlavor="NA" /> <code codeSystem="local" code="GLUMON" displayName="GLUCOSE (POC)" /> < statusCode code="completed" /> <component> <observation moodCode= "EVN" classCode="OBS"> <templateId root="840.1.795738.01.28.22.4.2 " /> <id nullFlavor="NA" /> <code codeSystem="local" code= "GLUMON" displayName="GLUCOSE (POC)" /> <statusCode code="completed" / > <effectiveTime value="848348069117" /> <value unit="mg/dL" xsi:type="PQ" value="103" /> <interpretationCode codeSystem="local" code="*" /> <referenceRange> <observationRange> <text>70-99</text> </observationRange> </referenceRange> </observation> </component> </organizer> </entry> <entry> < organizer moodCode="EVN" classCode="BATTERY"> <templateId root= "840.1.586364.01.28.22.4.1" /> <id nullFlavor="NA" /> <code codeSystem="local" code="PTTH" displayName="PTT HEPARIN PROTOCOLS" /> < statusCode code="completed" /> <component> <observation moodCode= "EVN" classCode="OBS"> <templateId root="05.27.840.1.974060.01.28.22.4.2 " /> <id nullFlavor="NA" /> <code codeSystem="local" code="PTT " displayName="PARTIAL THROMBOPLASTIN TIME" /> <statusCode code= "completed" /> <effectiveTime value="792656412675" /> <value unit="sec" xsi:type="PQ" value="61" /> <interpretationCode codeSystem= "local" code="*" /> <referenceRange> <observationRange> <text>23-39</text> </observationRange> </ referenceRange> </observation> </component> </organizer> </entry > <entry> <organizer moodCode="EVN" classCode="BATTERY"> <templateId root="216.840.1.197689.10..22.4.1" /> <id nullFlavor="NA" /> <code codeSystem="local" code="GLUMON" displayName="GLUCOSE (POC)" /> < statusCode code="completed" /> <component> <observation moodCode= "EVN" classCode="OBS"> <templateId root="216.840.1.088350.10..22.4.2 " /> <id nullFlavor="NA" /> <code codeSystem="local" code= "GLUMON" displayName="GLUCOSE (POC)" /> <statusCode code="completed" / > <effectiveTime value="282537719971" /> <value unit="mg/dL" xsi:type="PQ" value="81" /> <referenceRange> < observationRange> <text>70-99</text> </observationRange > </referenceRange> </observation> </component> </ organizer> </entry> <entry> <organizer moodCode="EVN" classCode="BATTERY"> <templateId root="216.840.1.866360.10..22.4.1" /> <id nullFlavor= "NA" /> <code codeSystem="local" code="PTTH" displayName="PTT HEPARIN PROTOCOLS" /> <statusCode code="completed" /> <component> < observation moodCode="EVN" classCode="OBS"> <templateId root= "2.16.840.1.849621.10.20.22.4.2" /> <id nullFlavor="NA" /> < code codeSystem="local" code="PTT" displayName="PARTIAL THROMBOPLASTIN TIME" /> <statusCode code="completed" /> <effectiveTime value= "705598466929" /> <value unit="sec" xsi:type="PQ" value="67" /> <interpretationCode codeSystem="local" code="*" /> <referenceRange> <observationRange> <text>23-39</text> </ observationRange> </referenceRange> </observation> </ component> </organizer> </entry> <entry> <organizer moodCode="EVN" classCode="BATTERY"> <templateId root="2.16.840.1.375070.10.20.22.4.1" /> <id nullFlavor="NA" /> <code codeSystem="local" code="GLUMON" displayName="GLUCOSE (POC)" /> <statusCode code="completed" /> < component> <observation moodCode="EVN" classCode="OBS"> < templateId root="2.16.840.1.421461.10.20.22.4.2" /> <id nullFlavor="NA " /> <code codeSystem="local" code="GLUMON" displayName="GLUCOSE (POC) " /> <statusCode code="completed" /> <effectiveTime value= "729948878334" /> <value unit="mg/dL" xsi:type="PQ" value="100" /> <interpretationCode codeSystem="local" code="*" /> < referenceRange> <observationRange> <text>70-99</text> </observationRange> </referenceRange> </observation> </component> </organizer> </entry> <entry> <organizer moodCode="EVN " classCode="BATTERY"> <templateId root="05.27.840.1.567745.10..4.1" / > <id nullFlavor="NA" /> <code codeSystem="local" code="PTTH" displayName="PTT HEPARIN PROTOCOLS" /> <statusCode code="completed" /> <component> <observation moodCode="EVN" classCode="OBS"> < templateId root="840.1.842481.01.28.22.4.2" /> <id nullFlavor="NA " /> <code codeSystem="local" code="PTT" displayName="PARTIAL THROMBOPLASTIN TIME" /> <statusCode code="completed" /> < effectiveTime value="466701808650" /> <value unit="sec" xsi:type="PQ" value="40" /> <interpretationCode codeSystem="local" code="*" /> <referenceRange> <observationRange> <text>23-39</ text> </observationRange> </referenceRange> </ observation> </component> </organizer> </entry> <entry> <organizer moodCode="EVN" classCode="BATTERY"> <templateId root= "05.27.840.1.259467.01.28.22.4.1" /> <id nullFlavor="NA" /> <code codeSystem="local" code="GLUMON" displayName="GLUCOSE (POC)" /> < statusCode code="completed" /> <component> <observation moodCode= "EVN" classCode="OBS"> <templateId root="05.27.840.1.385200.01.28.22.4.2 " /> <id nullFlavor="NA" /> <code codeSystem="local" code= "GLUMON" displayName="GLUCOSE (POC)" /> <statusCode code="completed" / > <effectiveTime value="127991444278" /> <value unit="mg/dL" xsi:type="PQ" value="115" /> <interpretationCode codeSystem="local" code="*" /> <referenceRange> <observationRange> <text>70-99</text> </observationRange> </referenceRange> </observation> </component> </organizer> </entry> <entry> < organizer moodCode="EVN" classCode="BATTERY"> <templateId root= "16.840.1.136493.10..22.4.1" /> <id nullFlavor="NA" /> <code codeSystem="local" code="PTTH" displayName="PTT HEPARIN PROTOCOLS" /> < statusCode code="completed" /> <component> <observation moodCode= "EVN" classCode="OBS"> <templateId root="16.840.1.137516.10..22.4.2 " /> <id nullFlavor="NA" /> <code codeSystem="local" code="PTT " displayName="PARTIAL THROMBOPLASTIN TIME" /> <statusCode code= "completed" /> <effectiveTime value="636037087365" /> <value unit="sec" xsi:type="PQ" value="46" /> <interpretationCode codeSystem= "local" code="*" /> <referenceRange> <observationRange> <text>23-39</text> </observationRange> </ referenceRange> </observation> </component> </organizer> </entry > <entry> <organizer moodCode="EVN" classCode="BATTERY"> <templateId root="05.27.840.1.960824.10..22.4.1" /> <id nullFlavor="NA" /> <code codeSystem="local" code="GLUMON" displayName="GLUCOSE (POC)" /> < statusCode code="completed" /> <component> <observation moodCode= "EVN" classCode="OBS"> <templateId root="2.16.840.1.211681.10.20.22.4.2 " /> <id nullFlavor="NA" /> <code codeSystem="local" code= "GLUMON" displayName="GLUCOSE (POC)" /> <statusCode code="completed" / > <effectiveTime value="228997595923" /> <value unit="mg/dL" xsi:type="PQ" value="99" /> <referenceRange> < observationRange> <text>70-99</text> </observationRange > </referenceRange> </observation> </component> </ organizer> </entry> <entry> <organizer moodCode="EVN" classCode="BATTERY"> <templateId root="2.16.840.1.651151.10.20.22.4.1" /> <id nullFlavor= "NA" /> <code codeSystem="local" code="GLUMON" displayName="GLUCOSE (POC)" /> <statusCode code="completed" /> <component> <observation moodCode="EVN" classCode="OBS"> <templateId root= "2.16.840.1.962001.10.20.22.4.2" /> <id nullFlavor="NA" /> < code codeSystem="local" code="GLUMON" displayName="GLUCOSE (POC)" /> < statusCode code="completed" /> <effectiveTime value="869030062458" /> <value unit="mg/dL" xsi:type="PQ" value="96" /> < referenceRange> <observationRange> <text>70-99</text> </observationRange> </referenceRange> </observation> </component> </organizer> </entry> <entry> <organizer moodCode="EVN " classCode="BATTERY"> <templateId root="840.1.621859.10..4.1" / > <id nullFlavor="NA" /> <code codeSystem="local" code="PTTH" displayName="PTT HEPARIN PROTOCOLS" /> <statusCode code="completed" /> <component> <observation moodCode="EVN" classCode="OBS"> < templateId root="840.1.514807.01.28.22.4.2" /> <id nullFlavor="NA " /> <code codeSystem="local" code="PTT" displayName="PARTIAL THROMBOPLASTIN TIME" /> <statusCode code="completed" /> < effectiveTime value="127979071616" /> <value unit="sec" xsi:type="PQ" value="42" /> <interpretationCode codeSystem="local" code="*" /> <referenceRange> <observationRange> <text>23-39</ text> </observationRange> </referenceRange> </ observation> </component> </organizer> </entry> <entry> <organizer moodCode="EVN" classCode="BATTERY"> <templateId root= "840.1.971272.01.28.22.4.1" /> <id nullFlavor="NA" /> <code codeSystem="local" code="CREATT" displayName="CREATININE" /> <statusCode code="completed" /> <component> <observation moodCode="EVN" classCode="OBS"> <templateId root="840.1.800351.01.28.22.4.2" /> <id nullFlavor="NA" /> <code codeSystem="local" code="eGFR" displayName="EST GFR (MDRD)" /> <statusCode code="completed" /> <effectiveTime value="521112258674" /> <value unit="mL/min" xsi:type ="PQ" value="> 60" /> <referenceRange> <observationRange > <text>> 59</text> </observationRange> </ referenceRange> </observation> </component> <component> <observation moodCode="EVN" classCode="OBS"> <templateId root= "840.1.421728.01.28.22.4.2" /> <id nullFlavor="NA" /> < code codeSystem="local" code="CREAT" displayName="CREATININE" /> < statusCode code="completed" /> <effectiveTime value="259211829669" /> <value unit="mg/dL" xsi:type="PQ" value="0.5" /> < interpretationCode codeSystem="local" code="*" /> <referenceRange> <observationRange> <text>0.6-1.0</text> </ observationRange> </referenceRange> </observation> </ component> </organizer> </entry> <entry> <organizer moodCode="EVN" classCode="BATTERY"> <templateId root="840.1.340023.01.28.22.4.1" /> <id nullFlavor="NA" /> <code codeSystem="local" code="GLUMON" displayName="GLUCOSE (POC)" /> <statusCode code="completed" /> < component> <observation moodCode="EVN" classCode="OBS"> < templateId root="05.27.840.1.839458.01.28.22.4.2" /> <id nullFlavor="NA " /> <code codeSystem="local" code="GLUMON" displayName="GLUCOSE (POC) " /> <statusCode code="completed" /> <effectiveTime value= "839283001320" /> <value unit="mg/dL" xsi:type="PQ" value="98" /> <referenceRange> <observationRange> <text>70-99</ text> </observationRange> </referenceRange> </ observation> </component> </organizer> </entry> <entry> <organizer moodCode="EVN" classCode="BATTERY"> <templateId root= "16.840.1.900705.10..4.1" /> <id nullFlavor="NA" /> <code codeSystem="local" code="PTTH" displayName="PTT HEPARIN PROTOCOLS" /> < statusCode code="completed" /> <component> <observation moodCode= "EVN" classCode="OBS"> <templateId root="05.27.840.1.554246.10..4.2 " /> <id nullFlavor="NA" /> <code codeSystem="local" code="PTT " displayName="PARTIAL THROMBOPLASTIN TIME" /> <statusCode code= "completed" /> <effectiveTime value="104271099694" /> <value unit="sec" xsi:type="PQ" value="142" /> <interpretationCode codeSystem= "local" code="" /> <referenceRange> <observationRange> <text>23-39</text> </observationRange> </ referenceRange> </observation> </component> </organizer> </entry > <entry> <organizer moodCode="EVN" classCode="BATTERY"> <templateId root="05.27.840.1.918173.10..4.1" /> <id nullFlavor="NA" /> <code codeSystem="local" code="GLUMON" displayName="GLUCOSE (POC)" /> < statusCode code="completed" /> <component> <observation moodCode= "EVN" classCode="OBS"> <templateId root="05.27.840.1.820754.10..22.4.2 " /> <id nullFlavor="NA" /> <code codeSystem="local" code= "GLUMON" displayName="GLUCOSE (POC)" /> <statusCode code="completed" / > <effectiveTime value="224460974621" /> <value unit="mg/dL" xsi:type="PQ" value="93" /> <referenceRange> < observationRange> <text>70-99</text> </observationRange > </referenceRange> </observation> </component> </ organizer> </entry> <entry> <organizer moodCode="EVN" classCode="BATTERY"> <templateId root="05.27.840.1.652343.10..22.4.1" /> <id nullFlavor= "NA" /> <code codeSystem="local" code="METAB" displayName="METABOLIC PANEL , BASIC" /> <statusCode code="completed" /> <component> < observation moodCode="EVN" classCode="OBS"> <templateId root= "05.27.840.1.865428.10..22.4.2" /> <id nullFlavor="NA" /> < code codeSystem="local" code="K" displayName="POTASSIUM" /> < statusCode code="completed" /> <effectiveTime value="813686420238" /> <value unit="mmol/L" xsi:type="PQ" value="3.9" /> < referenceRange> <observationRange> <text>3.5-5.3</text> </observationRange> </referenceRange> </observation > </component> <component> <observation moodCode="EVN" classCode="OBS"> <templateId root="05.27.840.1.259730.10..22.4.2" /> <id nullFlavor="NA" /> <code codeSystem="local" code="eGFR" displayName="EST GFR (MDRD)" /> <statusCode code="completed" /> <effectiveTime value="989803833788" /> <value unit="mL/min" xsi:type ="PQ" value="> 60" /> <referenceRange> <observationRange > <text>> 59</text> </observationRange> </ referenceRange> </observation> </component> <component> <observation moodCode="EVN" classCode="OBS"> <templateId root= "05.27.840.1.182482.10.20.22.4.2" /> <id nullFlavor="NA" /> < code codeSystem="local" code="GAP" displayName="ANION GAP" /> < statusCode code="completed" /> <effectiveTime value="632696345765" /> <value unit="mmol/L" xsi:type="PQ" value="6" /> < referenceRange> <observationRange> <text>5-15</text> </observationRange> </referenceRange> </observation> </component> <component> <observation moodCode="EVN" classCode= "OBS"> <templateId root="05.27.840.1.200353.10.20.22.4.2" /> < id nullFlavor="NA" /> <code codeSystem="local" code="eCrCl" displayName ="EST CrCl (CG)" /> <statusCode code="completed" /> < effectiveTime value="427045395573" /> <value unit="mL/min" xsi:type="PQ " value="> 60" /> <referenceRange> <observationRange> <text>> 59</text> </observationRange> </ referenceRange> </observation> </component> <component> <observation moodCode="EVN" classCode="OBS"> <templateId root= "840.1.685021.10.22.4.2" /> <id nullFlavor="NA" /> < code codeSystem="local" code="GLU" displayName="GLUCOSE" /> < statusCode code="completed" /> <effectiveTime value="957126521217" /> <value unit="mg/dL" xsi:type="PQ" value="90" /> < referenceRange> <observationRange> <text>70-99</text> </observationRange> </referenceRange> </observation> </component> <component> <observation moodCode="EVN" classCode= "OBS"> <templateId root="16.840.1.628162.01.28.22.4.2" /> < id nullFlavor="NA" /> <code codeSystem="local" code="CA" displayName= "CALCIUM" /> <statusCode code="completed" /> <effectiveTime value="898485197529" /> <value unit="mg/dL" xsi:type="PQ" value="8.3" / > <interpretationCode codeSystem="local" code="*" /> < referenceRange> <observationRange> <text>8.5-10.1</text > </observationRange> </referenceRange> </observation > </component> <component> <observation moodCode="EVN" classCode="OBS"> <templateId root="05.27.840.1.248666.10.22.4.2" /> <id nullFlavor="NA" /> <code codeSystem="local" code="BUN" displayName="BLOOD UREA NITROGEN" /> <statusCode code="completed" /> <effectiveTime value="500767414385" /> <value unit="mg/dL" xsi: type="PQ" value="3" /> <interpretationCode codeSystem="local" code="*" /> <referenceRange> <observationRange> <text>7- 20</text> </observationRange> </referenceRange> </ observation> </component> <component> <observation moodCode= "EVN" classCode="OBS"> <templateId root="05.27.840.1.582107.10.20.22.4.2 " /> <id nullFlavor="NA" /> <code codeSystem="local" code= "CREAT" displayName="CREATININE" /> <statusCode code="completed" /> <effectiveTime value="321028067578" /> <value unit="mg/dL" xsi: type="PQ" value="0.5" /> <interpretationCode codeSystem="local" code="* " /> <referenceRange> <observationRange> <text> 0.6-1.0</text> </observationRange> </referenceRange> </observation> </component> <component> <observation moodCode= "EVN" classCode="OBS"> <templateId root="840.1.681155.10..22.4.2 " /> <id nullFlavor="NA" /> <code codeSystem="local" code="NA " displayName="SODIUM" /> <statusCode code="completed" /> < effectiveTime value="620715333754" /> <value unit="mmol/L" xsi:type="PQ " value="137" /> <referenceRange> <observationRange> <text>135-148</text> </observationRange> </ referenceRange> </observation> </component> <component> <observation moodCode="EVN" classCode="OBS"> <templateId root= "05.27.840.1.559016.10.20.22.4.2" /> <id nullFlavor="NA" /> < code codeSystem="local" code="CL" displayName="CHLORIDE" /> < statusCode code="completed" /> <effectiveTime value="646088655021" /> <value unit="mmol/L" xsi:type="PQ" value="103" /> < referenceRange> <observationRange> <text>98-110</text> </observationRange> </referenceRange> </observation> </component> <component> <observation moodCode="EVN" classCode ="OBS"> <templateId root="216.840.1.297102.01.28.22.4.2" /> < id nullFlavor="NA" /> <code codeSystem="local" code="CO2" displayName= "CARBON DIOXIDE" /> <statusCode code="completed" /> < effectiveTime value="926832998726" /> <value unit="mmol/L" xsi:type="PQ " value="28" /> <referenceRange> <observationRange> <text>21-32</text> </observationRange> </ referenceRange> </observation> </component> </organizer> </entry > <entry> <organizer moodCode="EVN" classCode="BATTERY"> <templateId root="216.840.1.496414.01.28.22.4.1" /> <id nullFlavor="NA" /> <code codeSystem="local" code="CBC" displayName="CBC" /> <statusCode code= "completed" /> <component> <observation moodCode="EVN" classCode= "OBS"> <templateId root="16.840.1.640764.10.4.2" /> < id nullFlavor="NA" /> <code codeSystem="local" code="CBCCOM" displayName="COMMENT" /> <statusCode code="completed" /> < effectiveTime value="166012859062" /> <value unit="" xsi:type="PQ" value="REVIEWED" /> <referenceRange> <observationRange> <text /> </observationRange> </referenceRange> </observation> </component> <component> <observation moodCode="EVN" classCode="OBS"> <templateId root= "05.27.840.1.526914.10.20.22.4.2" /> <id nullFlavor="NA" /> < code codeSystem="local" code="MCH" displayName="MEAN CELL HGB" /> < statusCode code="completed" /> <effectiveTime value="035352250401" /> <value unit="pg" xsi:type="PQ" value="26.4" /> < interpretationCode codeSystem="local" code="*" /> <referenceRange> <observationRange> <text>27.0-33.0</text> </ observationRange> </referenceRange> </observation> </ component> <component> <observation moodCode="EVN" classCode="OBS"> <templateId root="05.27.840.1.894523.10.20.22.4.2" /> <id nullFlavor="NA" /> <code codeSystem="local" code="MCHC" displayName= "MEAN CELL HGB CONCENTRATION" /> <statusCode code="completed" /> <effectiveTime value="966574619580" /> <value unit="g/dL" xsi:type= "PQ" value="31.4" /> <interpretationCode codeSystem="local" code="*" / > <referenceRange> <observationRange> <text> 32.0-37.0</text> </observationRange> </referenceRange> </observation> </component> <component> <observation moodCode="EVN" classCode="OBS"> <templateId root= "05.27.840.1.445469.10.20.22.4.2" /> <id nullFlavor="NA" /> < code codeSystem="local" code="MCV" displayName="MEAN CELL VOLUME" /> < statusCode code="completed" /> <effectiveTime value="562940305252" /> <value unit="fl" xsi:type="PQ" value="84.2" /> <referenceRange > <observationRange> <text>80.0-100.0</text> </observationRange> </referenceRange> </observation> </ component> <component> <observation moodCode="EVN" classCode="OBS"> <templateId root="216.840.1.464419.10.20.22.4.2" /> <id nullFlavor="NA" /> <code codeSystem="local" code="RBC" displayName=" RED BLOOD CELL" /> <statusCode code="completed" /> < effectiveTime value="797742590452" /> <value unit="m/cumm" xsi:type="PQ " value="3.03" /> <interpretationCode codeSystem="local" code="*" /> <referenceRange> <observationRange> <text>4.00- 6.00</text> </observationRange> </referenceRange> </ observation> </component> <component> <observation moodCode= "EVN" classCode="OBS"> <templateId root="16.840.1.658018.10.20.22.4.2 " /> <id nullFlavor="NA" /> <code codeSystem="local" code="RDW " displayName="RED CELL DISTRIBUTION WIDTH" /> <statusCode code= "completed" /> <effectiveTime value="168651553453" /> <value unit="%" xsi:type="PQ" value="15.5" /> <referenceRange> <observationRange> <text>11.0-15.6</text> </ observationRange> </referenceRange> </observation> </ component> <component> <observation moodCode="EVN" classCode="OBS"> <templateId root="05.27.840.1.811136.10.20.22.4.2" /> <id nullFlavor="NA" /> <code codeSystem="local" code="WBC" displayName= "WHITE BLOOD CELL" /> <statusCode code="completed" /> < effectiveTime value="650263824247" /> <value unit="k/cumm" xsi:type="PQ " value="8.8" /> <referenceRange> <observationRange> <text>5.0-10.0</text> </observationRange> </ referenceRange> </observation> </component> <component> <observation moodCode="EVN" classCode="OBS"> <templateId root= "05.27.840.1.249733.10.22.4.2" /> <id nullFlavor="NA" /> < code codeSystem="local" code="HGBT" displayName="HEMOGLOBIN" /> < statusCode code="completed" /> <effectiveTime value="378110801617" /> <value unit="gm/dL" xsi:type="PQ" value="8.0" /> < interpretationCode codeSystem="local" code="*" /> <referenceRange> <observationRange> <text>12.0-16.0</text> </ observationRange> </referenceRange> </observation> </ component> <component> <observation moodCode="EVN" classCode="OBS"> <templateId root="[id number]" /> <id nullFlavor="NA" /> <code codeSystem="local" code="HCTT" displayName= "HEMATOCRIT" /> <statusCode code="completed" /> < effectiveTime value="[id number]" /> <value unit="%" xsi:type="PQ " value="25.5" /> <interpretationCode codeSystem="local" code="*" /> <referenceRange> <observationRange> <text>37.0- 47.0</text> </observationRange> </referenceRange> </ observation> </component> <component> <observation moodCode= "EVN" classCode="OBS"> <templateId root="16.840.1.860674.1022.4.2 " /> <id nullFlavor="NA" /> <code codeSystem="local" code="PLT " displayName="PLATELET COUNT" /> <statusCode code="completed" /> <effectiveTime value="[id number]" /> <value unit="k/cumm" xsi: type="PQ" value="158" /> <referenceRange> <observationRange > <text>150-400</text> </observationRange> </ referenceRange> </observation> </component> </organizer> </entry > <entry> <organizer moodCode="EVN" classCode="BATTERY"> <templateId root="05.27.840.1.932600.22.4.1" /> <id nullFlavor="NA" /> <code codeSystem="local" code="GLUMON" displayName="GLUCOSE (POC)" /> < statusCode code="completed" /> <component> <observation moodCode= "EVN" classCode="OBS"> <templateId root="16.840.1.581138.1022.4.2 " /> <id nullFlavor="NA" /> <code codeSystem="local" code= "GLUMON" displayName="GLUCOSE (POC)" /> <statusCode code="completed" / > <effectiveTime value="[id number]" /> <value unit="mg/dL" xsi:type="PQ" value="101" /> <interpretationCode codeSystem="local" code="*" /> <referenceRange> <observationRange> <text>70-99</text> </observationRange> </referenceRange> </observation> </component> </organizer> </entry> <entry> < organizer moodCode="EVN" classCode="BATTERY"> <templateId root= "16.840.1.992920.10..22.4.1" /> <id nullFlavor="NA" /> <code codeSystem="local" code="PTTH" displayName="PTT HEPARIN PROTOCOLS" /> < statusCode code="completed" /> <component> <observation moodCode= "EVN" classCode="OBS"> <templateId root="16.840.1.437784.10...4.2 " /> <id nullFlavor="NA" /> <code codeSystem="local" code="PTT " displayName="PARTIAL THROMBOPLASTIN TIME" /> <statusCode code= "completed" /> <effectiveTime value="368496956586" /> <value unit="sec" xsi:type="PQ" value="92" /> <interpretationCode codeSystem= "local" code="*" /> <referenceRange> <observationRange> <text>23-39</text> </observationRange> </ referenceRange> </observation> </component> </organizer> </entry > <entry> <organizer moodCode="EVN" classCode="BATTERY"> <templateId root="05.27.840.1.246350.10...4.1" /> <id nullFlavor="NA" /> <code codeSystem="local" code="GLUMON" displayName="GLUCOSE (POC)" /> < statusCode code="completed" /> <component> <observation moodCode= "EVN" classCode="OBS"> <templateId root="05.27.840.1.020864.10..22.4.2 " /> <id nullFlavor="NA" /> <code codeSystem="local" code= "GLUMON" displayName="GLUCOSE (POC)" /> <statusCode code="completed" / > <effectiveTime value="585827682413" /> <value unit="mg/dL" xsi:type="PQ" value="102" /> <interpretationCode codeSystem="local" code="*" /> <referenceRange> <observationRange> <text>70-99</text> </observationRange> </referenceRange> </observation> </component> </organizer> </entry> <entry> < organizer moodCode="EVN" classCode="BATTERY"> <templateId root= "216.840.1.877548.10..22.4.1" /> <id nullFlavor="NA" /> <code codeSystem="local" code="PTTH" displayName="PTT HEPARIN PROTOCOLS" /> < statusCode code="completed" /> <component> <observation moodCode= "EVN" classCode="OBS"> <templateId root="16.840.1.100325.10..22.4.2 " /> <id nullFlavor="NA" /> <code codeSystem="local" code="PTT " displayName="PARTIAL THROMBOPLASTIN TIME" /> <statusCode code= "completed" /> <effectiveTime value="799470295455" /> <value unit="sec" xsi:type="PQ" value="98" /> <interpretationCode codeSystem= "local" code="*" /> <referenceRange> <observationRange> <text>23-39</text> </observationRange> </ referenceRange> </observation> </component> </organizer> </entry > <entry> <organizer moodCode="EVN" classCode="BATTERY"> <templateId root="2.16.840.1.884881.10..4.1" /> <id nullFlavor="NA" /> <code codeSystem="local" code="GLUMON" displayName="GLUCOSE (POC)" /> < statusCode code="completed" /> <component> <observation moodCode= "EVN" classCode="OBS"> <templateId root="840.1.872766.01.28.22.4.2 " /> <id nullFlavor="NA" /> <code codeSystem="local" code= "GLUMON" displayName="GLUCOSE (POC)" /> <statusCode code="completed" / > <effectiveTime value="369210898138" /> <value unit="mg/dL" xsi:type="PQ" value="97" /> <referenceRange> < observationRange> <text>70-99</text> </observationRange > </referenceRange> </observation> </component> </ organizer> </entry> <entry> <organizer moodCode="EVN" classCode="BATTERY"> <templateId root="05.27.840.1.466501.01.28.22.4.1" /> <id nullFlavor= "NA" /> <code codeSystem="local" code="GLUMON" displayName="GLUCOSE (POC)" /> <statusCode code="completed" /> <component> <observation moodCode="EVN" classCode="OBS"> <templateId root= "05.27.840.1.065404.10..22.4.2" /> <id nullFlavor="NA" /> < code codeSystem="local" code="GLUMON" displayName="GLUCOSE (POC)" /> < statusCode code="completed" /> <effectiveTime value="231956823864" /> <value unit="mg/dL" xsi:type="PQ" value="88" /> < referenceRange> <observationRange> <text>70-99</text> </observationRange> </referenceRange> </observation> </component> </organizer> </entry> <entry> <organizer moodCode="EVN " classCode="BATTERY"> <templateId root="05.27.840.1.798944.10..22.4.1" / > <id nullFlavor="NA" /> <code codeSystem="local" code="GLUMON" displayName="GLUCOSE (POC)" /> <statusCode code="completed" /> < component> <observation moodCode="EVN" classCode="OBS"> < templateId root="840.1.989268.10..4.2" /> <id nullFlavor="NA " /> <code codeSystem="local" code="GLUMON" displayName="GLUCOSE (POC) " /> <statusCode code="completed" /> <effectiveTime value= "626945950394" /> <value unit="mg/dL" xsi:type="PQ" value="97" /> <referenceRange> <observationRange> <text>70-99</ text> </observationRange> </referenceRange> </ observation> </component> </organizer> </entry> <entry> <organizer moodCode="EVN" classCode="BATTERY"> <templateId root= "840.1.185751.10..22.4.1" /> <id nullFlavor="NA" /> <code codeSystem="local" code="PTT" displayName="PARTIAL THROMBOPLASTIN TIME" /> <statusCode code="completed" /> <component> <observation moodCode= "EVN" classCode="OBS"> <templateId root="05.27.840.1.727292.10..22.4.2 " /> <id nullFlavor="NA" /> <code codeSystem="local" code="PTT " displayName="PARTIAL THROMBOPLASTIN TIME" /> <statusCode code= "completed" /> <effectiveTime value="606188730642" /> <value unit="sec" xsi:type="PQ" value="40" /> <interpretationCode codeSystem= "local" code="*" /> <referenceRange> <observationRange> <text>23-39</text> </observationRange> </ referenceRange> </observation> </component> </organizer> </entry > <entry> <organizer moodCode="EVN" classCode="BATTERY"> <templateId root="16.840.1.332438.10.20.22.4.1" /> <id nullFlavor="NA" /> <code codeSystem="local" code="PT" displayName="PROTHROMBIN TIME WITH INR" /> < statusCode code="completed" /> <component> <observation moodCode= "EVN" classCode="OBS"> <templateId root="16.840.1.468043.10.20.22.4.2 " /> <id nullFlavor="NA" /> <code codeSystem="local" code= "INRX" displayName="INTERNATIONAL NORMAL RATIO" /> <statusCode code= "completed" /> <effectiveTime value="695258311618" /> <value unit="" xsi:type="PQ" value="1.2" /> <interpretationCode codeSystem= "local" code="*" /> <referenceRange> <observationRange> <text>0.9-1.1</text> </observationRange> </ referenceRange> </observation> </component> <component> <observation moodCode="EVN" classCode="OBS"> <templateId root= "16.840.1.372373.10.20.22.4.2" /> <id nullFlavor="NA" /> < code codeSystem="local" code="PTPAT" displayName="PROTHROMBIN TIME" /> <statusCode code="completed" /> <effectiveTime value="" /> <value unit="sec" xsi:type="PQ" value="13.3" /> < interpretationCode codeSystem="local" code="*" /> <referenceRange> <observationRange> <text>9.3-12.2</text> </ observationRange> </referenceRange> </observation> </ component> </organizer> </entry> <entry> <organizer moodCode="EVN" classCode="BATTERY"> <templateId root="16.840.1.940005.10..22.4.1" /> <id nullFlavor="NA" /> <code codeSystem="local" code="CBC" displayName ="CBC" /> <statusCode code="completed" /> <component> < observation moodCode="EVN" classCode="OBS"> <templateId root= "16.840.1.785097.10.20.22.4.2" /> <id nullFlavor="NA" /> < code codeSystem="local" code="MCH" displayName="MEAN CELL HGB" /> < statusCode code="completed" /> <effectiveTime value="412013622391" /> <value unit="pg" xsi:type="PQ" value="26.5" /> < interpretationCode codeSystem="local" code="*" /> <referenceRange> <observationRange> <text>27.0-33.0</text> </ observationRange> </referenceRange> </observation> </ component> <component> <observation moodCode="EVN" classCode="OBS"> <templateId root="05.27.840.1.264292.10.20.22.4.2" /> <id nullFlavor="NA" /> <code codeSystem="local" code="MCHC" displayName= "MEAN CELL HGB CONCENTRATION" /> <statusCode code="completed" /> <effectiveTime value="" /> <value unit="g/dL" xsi:type= "PQ" value="31.7" /> <interpretationCode codeSystem="local" code="*" / > <referenceRange> <observationRange> <text> 32.0-37.0</text> </observationRange> </referenceRange> </observation> </component> <component> <observation moodCode="EVN" classCode="OBS"> <templateId root= "2.16.840.1.679341.10...4.2" /> <id nullFlavor="NA" /> < code codeSystem="local" code="MCV" displayName="MEAN CELL VOLUME" /> < statusCode code="completed" /> <effectiveTime value="" /> <value unit="fl" xsi:type="PQ" value="83.5" /> <referenceRange > <observationRange> <text>80.0-100.0</text> </observationRange> </referenceRange> </observation> </ component> <component> <observation moodCode="EVN" classCode="OBS"> <templateId root="2.16.840.1.476640.10...4.2" /> <id nullFlavor="NA" /> <code codeSystem="local" code="RBC" displayName=" RED BLOOD CELL" /> <statusCode code="completed" /> < effectiveTime value="" /> <value unit="m/cumm" xsi:type="PQ " value="3.10" /> <interpretationCode codeSystem="local" code="*" /> <referenceRange> <observationRange> <text>4.00- 6.00</text> </observationRange> </referenceRange> </ observation> </component> <component> <observation moodCode= "EVN" classCode="OBS"> <templateId root="216.840.1.767471.10.20.22.4.2 " /> <id nullFlavor="NA" /> <code codeSystem="local" code="RDW " displayName="RED CELL DISTRIBUTION WIDTH" /> <statusCode code= "completed" /> <effectiveTime value="" /> <value unit="%" xsi:type="PQ" value="15.5" /> <referenceRange> <observationRange> <text>11.0-15.6</text> </ observationRange> </referenceRange> </observation> </ component> <component> <observation moodCode="EVN" classCode="OBS"> <templateId root="2.840.1.215539.1022.4.2" /> <id nullFlavor="NA" /> <code codeSystem="local" code="WBC" displayName= "WHITE BLOOD CELL" /> <statusCode code="completed" /> < effectiveTime value="" /> <value unit="k/cumm" xsi:type="PQ " value="11.3" /> <interpretationCode codeSystem="local" code="*" /> <referenceRange> <observationRange> <text>5.0- 10.0</text> </observationRange> </referenceRange> </ observation> </component> <component> <observation moodCode= "EVN" classCode="OBS"> <templateId root="16.840.1.553657.102022.4.2 " /> <id nullFlavor="NA" /> <code codeSystem="local" code= "HGBT" displayName="HEMOGLOBIN" /> <statusCode code="completed" /> <effectiveTime value="" /> <value unit="gm/dL" xsi: type="PQ" value="8.2" /> <interpretationCode codeSystem="local" code="* " /> <referenceRange> <observationRange> <text> 12.0-16.0</text> </observationRange> </referenceRange> </observation> </component> <component> <observation moodCode="EVN" classCode="OBS"> <templateId root= "216.840.1.059445.10.20.22.4.2" /> <id nullFlavor="NA" /> < code codeSystem="local" code="HCTT" displayName="HEMATOCRIT" /> < statusCode code="completed" /> <effectiveTime value="" /> <value unit="%" xsi:type="PQ" value="25.9" /> < interpretationCode codeSystem="local" code="*" /> <referenceRange> <observationRange> <text>37.0-47.0</text> </ observationRange> </referenceRange> </observation> </ component> <component> <observation moodCode="EVN" classCode="OBS"> <templateId root="16.840.1.587948.10.20.22.4.2" /> <id nullFlavor="NA" /> <code codeSystem="local" code="PLT" displayName= "PLATELET COUNT" /> <statusCode code="completed" /> < effectiveTime value="" /> <value unit="k/cumm" xsi:type="PQ " value="187" /> <referenceRange> <observationRange> <text>150-400</text> </observationRange> </ referenceRange> </observation> </component> </organizer> </entry > <entry> <organizer moodCode="EVN" classCode="BATTERY"> <templateId root="2.16.840.1.247576.10..4.1" /> <id nullFlavor="NA" /> <code codeSystem="local" code="GLUMON" displayName="GLUCOSE (POC)" /> < statusCode code="completed" /> <component> <observation moodCode= "EVN" classCode="OBS"> <templateId root="840.1.829973.01.28.22.4.2 " /> <id nullFlavor="NA" /> <code codeSystem="local" code= "GLUMON" displayName="GLUCOSE (POC)" /> <statusCode code="completed" / > <effectiveTime value="896763470528" /> <value unit="mg/dL" xsi:type="PQ" value="106" /> <interpretationCode codeSystem="local" code="*" /> <referenceRange> <observationRange> <text>70-99</text> </observationRange> </referenceRange> </observation> </component> </organizer> </entry> <entry> < organizer moodCode="EVN" classCode="BATTERY"> <templateId root= "840.1.096787.01.28.22.4.1" /> <id nullFlavor="NA" /> <code codeSystem="local" code="PTTH" displayName="PTT HEPARIN PROTOCOLS" /> < statusCode code="completed" /> <component> <observation moodCode= "EVN" classCode="OBS"> <templateId root="05.27.840.1.206598.01.28.22.4.2 " /> <id nullFlavor="NA" /> <code codeSystem="local" code="PTT " displayName="PARTIAL THROMBOPLASTIN TIME" /> <statusCode code= "completed" /> <effectiveTime value="176911098916" /> <value unit="sec" xsi:type="PQ" value="105" /> <interpretationCode codeSystem= "local" code="*" /> <referenceRange> <observationRange> <text>23-39</text> </observationRange> </ referenceRange> </observation> </component> </organizer> </entry > <entry> <organizer moodCode="EVN" classCode="BATTERY"> <templateId root="05.27.840.1.734367.10.2022.4.1" /> <id nullFlavor="NA" /> <code codeSystem="local" code="METAB" displayName="METABOLIC PANEL, BASIC" /> < statusCode code="completed" /> <component> <observation moodCode= "EVN" classCode="OBS"> <templateId root="05.27.840.1.971711.10.22.4.2 " /> <id nullFlavor="NA" /> <code codeSystem="local" code="K" displayName="POTASSIUM" /> <statusCode code="completed" /> < effectiveTime value="" /> <value unit="mmol/L" xsi:type="PQ " value="3.7" /> <referenceRange> <observationRange> <text>3.5-5.3</text> </observationRange> </ referenceRange> </observation> </component> <component> <observation moodCode="EVN" classCode="OBS"> <templateId root= "840.1.013646.1022.4.2" /> <id nullFlavor="NA" /> < code codeSystem="local" code="eGFR" displayName="EST GFR (MDRD)" /> < statusCode code="completed" /> <effectiveTime value="" /> <value unit="mL/min" xsi:type="PQ" value="> 60" /> < referenceRange> <observationRange> <text>> 59</text> </observationRange> </referenceRange> </observation > </component> <component> <observation moodCode="EVN" classCode="OBS"> <templateId root="216.840.1.327850.10...4.2" /> <id nullFlavor="NA" /> <code codeSystem="local" code="GAP" displayName="ANION GAP" /> <statusCode code="completed" /> < effectiveTime value="" /> <value unit="mmol/L" xsi:type="PQ " value="10" /> <referenceRange> <observationRange> <text>5-15</text> </observationRange> </referenceRange > </observation> </component> <component> <observation moodCode="EVN" classCode="OBS"> <templateId root= "05.27.840.1.386642.10..4.2" /> <id nullFlavor="NA" /> < code codeSystem="local" code="eCrCl" displayName="EST CrCl (CG)" /> < statusCode code="completed" /> <effectiveTime value="" /> <value unit="mL/min" xsi:type="PQ" value="> 60" /> < referenceRange> <observationRange> <text>> 59</text> </observationRange> </referenceRange> </observation > </component> <component> <observation moodCode="EVN" classCode="OBS"> <templateId root="05.27.840.1.257482.10.22.4.2" /> <id nullFlavor="NA" /> <code codeSystem="local" code="GLU" displayName="GLUCOSE" /> <statusCode code="completed" /> < effectiveTime value="" /> <value unit="mg/dL" xsi:type="PQ " value="103" /> <interpretationCode codeSystem="local" code="*" /> <referenceRange> <observationRange> <text>70-99</ text> </observationRange> </referenceRange> </ observation> </component> <component> <observation moodCode= "EVN" classCode="OBS"> <templateId root="216.840.1.180225.10.20.22.4.2 " /> <id nullFlavor="NA" /> <code codeSystem="local" code="CA " displayName="CALCIUM" /> <statusCode code="completed" /> < effectiveTime value="" /> <value unit="mg/dL" xsi:type="PQ " value="8.4" /> <interpretationCode codeSystem="local" code="*" /> <referenceRange> <observationRange> <text>8.5- 10.1</text> </observationRange> </referenceRange> </ observation> </component> <component> <observation moodCode= "EVN" classCode="OBS"> <templateId root="16.840.1.539199.10.20.22.4.2 " /> <id nullFlavor="NA" /> <code codeSystem="local" code="BUN " displayName="BLOOD UREA NITROGEN" /> <statusCode code="completed" /> <effectiveTime value="" /> <value unit="mg/dL" xsi:type="PQ" value="4" /> <interpretationCode codeSystem="local" code= "*" /> <referenceRange> <observationRange> < text>7-20</text> </observationRange> </referenceRange> </observation> </component> <component> <observation moodCode="EVN" classCode="OBS"> <templateId root= "216.840.1.212959.10..22.4.2" /> <id nullFlavor="NA" /> < code codeSystem="local" code="CREAT" displayName="CREATININE" /> < statusCode code="completed" /> <effectiveTime value="" /> <value unit="mg/dL" xsi:type="PQ" value="0.4" /> < interpretationCode codeSystem="local" code="*" /> <referenceRange> <observationRange> <text>0.6-1.0</text> </ observationRange> </referenceRange> </observation> </ component> <component> <observation moodCode="EVN" classCode="OBS"> <templateId root="216.840.1.803780.10...4.2" /> <id nullFlavor="NA" /> <code codeSystem="local" code="NA" displayName= "SODIUM" /> <statusCode code="completed" /> <effectiveTime value="" /> <value unit="mmol/L" xsi:type="PQ" value="137" /> <referenceRange> <observationRange> <text> 135-148</text> </observationRange> </referenceRange> </observation> </component> <component> <observation moodCode= "EVN" classCode="OBS"> <templateId root="16.840.1.899524.10.20.22.4.2 " /> <id nullFlavor="NA" /> <code codeSystem="local" code="CL " displayName="CHLORIDE" /> <statusCode code="completed" /> < effectiveTime value="" /> <value unit="mmol/L" xsi:type="PQ " value="102" /> <referenceRange> <observationRange> <text>98-110</text> </observationRange> </ referenceRange> </observation> </component> <component> <observation moodCode="EVN" classCode="OBS"> <templateId root= "216.840.1.682822.01.28.22.4.2" /> <id nullFlavor="NA" /> < code codeSystem="local" code="CO2" displayName="CARBON DIOXIDE" /> < statusCode code="completed" /> <effectiveTime value="" /> <value unit="mmol/L" xsi:type="PQ" value="25" /> < referenceRange> <observationRange> <text>21-32</text> </observationRange> </referenceRange> </observation> </component> </organizer> </entry> <entry> <organizer moodCode="EVN " classCode="BATTERY"> <templateId root="216.840.1.197830.01.28.22.4.1" / > <id nullFlavor="NA" /> <code codeSystem="local" code="CBC" displayName="CBC" /> <statusCode code="completed" /> <component> <observation moodCode="EVN" classCode="OBS"> <templateId root= "216.840.1.396523.10..22.4.2" /> <id nullFlavor="NA" /> < code codeSystem="local" code="CBCCOM" displayName="COMMENT" /> < statusCode code="completed" /> <effectiveTime value="165248040645" /> <value unit="" xsi:type="PQ" value="REVIEWED" /> < referenceRange> <observationRange> <text /> < /observationRange> </referenceRange> </observation> </ component> <component> <observation moodCode="EVN" classCode="OBS"> <templateId root="216.840.1.232573.10..22.4.2" /> <id nullFlavor="NA" /> <code codeSystem="local" code="MCH" displayName= "MEAN CELL HGB" /> <statusCode code="completed" /> < effectiveTime value="892053046541" /> <value unit="pg" xsi:type="PQ" value="26.3" /> <interpretationCode codeSystem="local" code="*" /> <referenceRange> <observationRange> <text>27.0- 33.0</text> </observationRange> </referenceRange> </ observation> </component> <component> <observation moodCode= "EVN" classCode="OBS"> <templateId root="840.1.224523.1022.4.2 " /> <id nullFlavor="NA" /> <code codeSystem="local" code= "MCHC" displayName="MEAN CELL HGB CONCENTRATION" /> <statusCode code= "completed" /> <effectiveTime value="208154902587" /> <value unit="g/dL" xsi:type="PQ" value="31.6" /> <interpretationCode codeSystem="local" code="*" /> <referenceRange> < observationRange> <text>32.0-37.0</text> </ observationRange> </referenceRange> </observation> </ component> <component> <observation moodCode="EVN" classCode="OBS"> <templateId root="840.1.774243.10.2022.4.2" /> <id nullFlavor="NA" /> <code codeSystem="local" code="MCV" displayName= "MEAN CELL VOLUME" /> <statusCode code="completed" /> < effectiveTime value="915113242983" /> <value unit="fl" xsi:type="PQ" value="83.2" /> <referenceRange> <observationRange> <text>80.0-100.0</text> </observationRange> </ referenceRange> </observation> </component> <component> <observation moodCode="EVN" classCode="OBS"> <templateId root= "216.840.1.466598.10.20.22.4.2" /> <id nullFlavor="NA" /> < code codeSystem="local" code="RBC" displayName="RED BLOOD CELL" /> < statusCode code="completed" /> <effectiveTime value="740601471692" /> <value unit="m/cumm" xsi:type="PQ" value="3.04" /> < interpretationCode codeSystem="local" code="*" /> <referenceRange> <observationRange> <text>4.00-6.00</text> </ observationRange> </referenceRange> </observation> </ component> <component> <observation moodCode="EVN" classCode="OBS"> <templateId root="05.27.840.1.214523.10..4.2" /> <id nullFlavor="NA" /> <code codeSystem="local" code="RDW" displayName=" RED CELL DISTRIBUTION WIDTH" /> <statusCode code="completed" /> <effectiveTime value="912458614251" /> <value unit="%" xsi:type= "PQ" value="15.5" /> <referenceRange> <observationRange> <text>11.0-15.6</text> </observationRange> </ referenceRange> </observation> </component> <component> <observation moodCode="EVN" classCode="OBS"> <templateId root= "216.840.1.302054.10..22.4.2" /> <id nullFlavor="NA" /> < code codeSystem="local" code="WBC" displayName="WHITE BLOOD CELL" /> < statusCode code="completed" /> <effectiveTime value="" /> <value unit="k/cumm" xsi:type="PQ" value="10.3" /> < interpretationCode codeSystem="local" code="*" /> <referenceRange> <observationRange> <text>5.0-10.0</text> </ observationRange> </referenceRange> </observation> </ component> <component> <observation moodCode="EVN" classCode="OBS"> <templateId root="2.16.840.1.812901.10..22.4.2" /> <id nullFlavor="NA" /> <code codeSystem="local" code="HGBT" displayName= "HEMOGLOBIN" /> <statusCode code="completed" /> < effectiveTime value="" /> <value unit="gm/dL" xsi:type="PQ " value="8.0" /> <interpretationCode codeSystem="local" code="*" /> <referenceRange> <observationRange> <text>12.0- 16.0</text> </observationRange> </referenceRange> </ observation> </component> <component> <observation moodCode= "EVN" classCode="OBS"> <templateId root="2.16.840.1.469564.10.20.22.4.2 " /> <id nullFlavor="NA" /> <code codeSystem="local" code= "HCTT" displayName="HEMATOCRIT" /> <statusCode code="completed" /> <effectiveTime value="" /> <value unit="%" xsi: type="PQ" value="25.3" /> <interpretationCode codeSystem="local" code= "*" /> <referenceRange> <observationRange> < text>37.0-47.0</text> </observationRange> </referenceRange> </observation> </component> <component> <observation moodCode="EVN" classCode="OBS"> <templateId root= "16.840.1.843459.10.22.4.2" /> <id nullFlavor="NA" /> < code codeSystem="local" code="PLT" displayName="PLATELET COUNT" /> < statusCode code="completed" /> <effectiveTime value="344713271244" /> <value unit="k/cumm" xsi:type="PQ" value="123" /> < interpretationCode codeSystem="local" code="*" /> <referenceRange> <observationRange> <text>150-400</text> </ observationRange> </referenceRange> </observation> </ component> </organizer> </entry> <entry> <organizer moodCode="EVN" classCode="BATTERY"> <templateId root="16.840.1.366145.10..22.4.1" /> <id nullFlavor="NA" /> <code codeSystem="local" code="GLUMON" displayName="GLUCOSE (POC)" /> <statusCode code="completed" /> < component> <observation moodCode="EVN" classCode="OBS"> < templateId root="16.840.1.766863.10.22.4.2" /> <id nullFlavor="NA " /> <code codeSystem="local" code="GLUMON" displayName="GLUCOSE (POC) " /> <statusCode code="completed" /> <effectiveTime value= "870870591812" /> <value unit="mg/dL" xsi:type="PQ" value="97" /> <referenceRange> <observationRange> <text>70-99</ text> </observationRange> </referenceRange> </ observation> </component> </organizer> </entry> <entry> <organizer moodCode="EVN" classCode="BATTERY"> <templateId root= "05.27.840.1.600566.10.4.1" /> <id nullFlavor="NA" /> <code codeSystem="local" code="PTT" displayName="PARTIAL THROMBOPLASTIN TIME" /> <statusCode code="completed" /> <component> <observation moodCode= "EVN" classCode="OBS"> <templateId root="840.1.444664.01.28.22.4.2 " /> <id nullFlavor="NA" /> <code codeSystem="local" code="PTT " displayName="PARTIAL THROMBOPLASTIN TIME" /> <statusCode code= "completed" /> <effectiveTime value="648052979792" /> <value unit="sec" xsi:type="PQ" value="66" /> <interpretationCode codeSystem= "local" code="*" /> <referenceRange> <observationRange> <text>23-39</text> </observationRange> </ referenceRange> </observation> </component> </organizer> </entry > <entry> <organizer moodCode="EVN" classCode="BATTERY"> <templateId root="840.1.620866.01.28.22.4.1" /> <id nullFlavor="NA" /> <code codeSystem="local" code="GLUMON" displayName="GLUCOSE (POC)" /> < statusCode code="completed" /> <component> <observation moodCode= "EVN" classCode="OBS"> <templateId root="05.27.840.1.381308.10..4.2 " /> <id nullFlavor="NA" /> <code codeSystem="local" code= "GLUMON" displayName="GLUCOSE (POC)" /> <statusCode code="completed" / > <effectiveTime value="637360758074" /> <value unit="mg/dL" xsi:type="PQ" value="111" /> <interpretationCode codeSystem="local" code="*" /> <referenceRange> <observationRange> <text>70-99</text> </observationRange> </referenceRange> </observation> </component> </organizer> </entry> <entry> < organizer moodCode="EVN" classCode="BATTERY"> <templateId root= "216.840.1.095424.10..22.4.1" /> <id nullFlavor="NA" /> <code codeSystem="local" code="VANCT" displayName="VANCOMYCIN TROUGH" /> < statusCode code="completed" /> <component> <observation moodCode= "EVN" classCode="OBS"> <templateId root="216.840.1.833144.10..22.4.2 " /> <id nullFlavor="NA" /> <code codeSystem="local" code= "VANCT" displayName="VANCOMYCIN TROUGH" /> <statusCode code="completed " /> <effectiveTime value="803378332204" /> <value unit="mcg/ mL" xsi:type="PQ" value="8.1" /> <referenceRange> < observationRange> <text>5.0-20.0</text> </ observationRange> </referenceRange> </observation> </ component> </organizer> </entry> <entry> <organizer moodCode="EVN" classCode="BATTERY"> <templateId root="216.840.1.438523.10.20.22.4.1" /> <id nullFlavor="NA" /> <code codeSystem="local" code="GLUMON" displayName="GLUCOSE (POC)" /> <statusCode code="completed" /> < component> <observation moodCode="EVN" classCode="OBS"> < templateId root="216.840.1.252341.10..22.4.2" /> <id nullFlavor="NA " /> <code codeSystem="local" code="GLUMON" displayName="GLUCOSE (POC) " /> <statusCode code="completed" /> <effectiveTime value= "455324492981" /> <value unit="mg/dL" xsi:type="PQ" value="115" /> <interpretationCode codeSystem="local" code="*" /> < referenceRange> <observationRange> <text>70-99</text> </observationRange> </referenceRange> </observation> </component> </organizer> </entry> <entry> <organizer moodCode="EVN " classCode="BATTERY"> <templateId root="216.840.1.252578.10..22.4.1" / > <id nullFlavor="NA" /> <code codeSystem="local" code="PTTH" displayName="PTT HEPARIN PROTOCOLS" /> <statusCode code="completed" /> <component> <observation moodCode="EVN" classCode="OBS"> < templateId root="216.840.1.986171.10..22.4.2" /> <id nullFlavor="NA " /> <code codeSystem="local" code="PTT" displayName="PARTIAL THROMBOPLASTIN TIME" /> <statusCode code="completed" /> < effectiveTime value="684294956395" /> <value unit="sec" xsi:type="PQ" value="61" /> <interpretationCode codeSystem="local" code="*" /> <referenceRange> <observationRange> <text>23-39</ text> </observationRange> </referenceRange> </ observation> </component> </organizer> </entry> <entry> <organizer moodCode="EVN" classCode="BATTERY"> <templateId root= "05.27.840.1.222761.01.28.22.4.1" /> <id nullFlavor="NA" /> <code codeSystem="local" code="GLUMON" displayName="GLUCOSE (POC)" /> < statusCode code="completed" /> <component> <observation moodCode= "EVN" classCode="OBS"> <templateId root="840.1.111382.01.28.224.2 " /> <id nullFlavor="NA" /> <code codeSystem="local" code= "GLUMON" displayName="GLUCOSE (POC)" /> <statusCode code="completed" / > <effectiveTime value="428190173273" /> <value unit="mg/dL" xsi:type="PQ" value="106" /> <interpretationCode codeSystem="local" code="*" /> <referenceRange> <observationRange> <text>70-99</text> </observationRange> </referenceRange> </observation> </component> </organizer> </entry> <entry> < organizer moodCode="EVN" classCode="BATTERY"> <templateId root= "840.1.980617.01.28.22.4.1" /> <id nullFlavor="NA" /> <code codeSystem="local" code="GLUMON" displayName="GLUCOSE (POC)" /> < statusCode code="completed" /> <component> <observation moodCode= "EVN" classCode="OBS"> <templateId root="05.27.840.1.502183.1022.4.2 " /> <id nullFlavor="NA" /> <code codeSystem="local" code= "GLUMON" displayName="GLUCOSE (POC)" /> <statusCode code="completed" / > <effectiveTime value="708298987795" /> <value unit="mg/dL" xsi:type="PQ" value="112" /> <interpretationCode codeSystem="local" code="*" /> <referenceRange> <observationRange> <text>70-99</text> </observationRange> </referenceRange> </observation> </component> </organizer> </entry> <entry> < organizer moodCode="EVN" classCode="BATTERY"> <templateId root= "216.840.1.330693.10.20.22.4.1" /> <id nullFlavor="NA" /> <code codeSystem="local" code="GLUMON" displayName="GLUCOSE (POC)" /> < statusCode code="completed" /> <component> <observation moodCode= "EVN" classCode="OBS"> <templateId root="216.840.1.017586.10.20.22.4.2 " /> <id nullFlavor="NA" /> <code codeSystem="local" code= "GLUMON" displayName="GLUCOSE (POC)" /> <statusCode code="completed" / > <effectiveTime value="780370499056" /> <value unit="mg/dL" xsi:type="PQ" value="118" /> <interpretationCode codeSystem="local" code="*" /> <referenceRange> <observationRange> <text>70-99</text> </observationRange> </referenceRange> </observation> </component> </organizer> </entry> <entry> < organizer moodCode="EVN" classCode="BATTERY"> <templateId root= "16.840.1.881790.10.20.22.4.1" /> <id nullFlavor="NA" /> <code codeSystem="local" code="PTTH" displayName="PTT HEPARIN PROTOCOLS" /> < statusCode code="completed" /> <component> <observation moodCode= "EVN" classCode="OBS"> <templateId root="16.840.1.972558.10..22.4.2 " /> <id nullFlavor="NA" /> <code codeSystem="local" code="PTT " displayName="PARTIAL THROMBOPLASTIN TIME" /> <statusCode code= "completed" /> <effectiveTime value="815051639612" /> <value unit="sec" xsi:type="PQ" value="102" /> <interpretationCode codeSystem= "local" code="*" /> <referenceRange> <observationRange> <text>23-39</text> </observationRange> </ referenceRange> </observation> </component> </organizer> </entry > <entry> <organizer moodCode="EVN" classCode="BATTERY"> <templateId root="05.27.840.1.572878.10..22.4.1" /> <id nullFlavor="NA" /> <code codeSystem="local" code="GLUMON" displayName="GLUCOSE (POC)" /> < statusCode code="completed" /> <component> <observation moodCode= "EVN" classCode="OBS"> <templateId root="05.27.840.1.229664.10.22.4.2 " /> <id nullFlavor="NA" /> <code codeSystem="local" code= "GLUMON" displayName="GLUCOSE (POC)" /> <statusCode code="completed" / > <effectiveTime value="001005521847" /> <value unit="mg/dL" xsi:type="PQ" value="98" /> <referenceRange> < observationRange> <text>70-99</text> </observationRange > </referenceRange> </observation> </component> </ organizer> </entry> <entry> <organizer moodCode="EVN" classCode="BATTERY"> <templateId root="05.27.840.1.937658.01.28.22.4.1" /> <id nullFlavor= "NA" /> <code codeSystem="local" code="PTTH" displayName="PTT HEPARIN PROTOCOLS" /> <statusCode code="completed" /> <component> < observation moodCode="EVN" classCode="OBS"> <templateId root= "840.1.391409.01.28.22.4.2" /> <id nullFlavor="NA" /> < code codeSystem="local" code="PTT" displayName="PARTIAL THROMBOPLASTIN TIME" /> <statusCode code="completed" /> <effectiveTime value= "615351757792" /> <value unit="sec" xsi:type="PQ" value="202" /> <interpretationCode codeSystem="local" code="" /> <referenceRange > <observationRange> <text>23-39</text> </ observationRange> </referenceRange> </observation> </ component> </organizer> </entry> <entry> <organizer moodCode="EVN" classCode="BATTERY"> <templateId root="840.1.589257.01.28.224.1" /> <id nullFlavor="NA" /> <code codeSystem="local" code="GLUMON" displayName="GLUCOSE (POC)" /> <statusCode code="completed" /> < component> <observation moodCode="EVN" classCode="OBS"> < templateId root="05.27.840.1.464134.10.4.2" /> <id nullFlavor="NA " /> <code codeSystem="local" code="GLUMON" displayName="GLUCOSE (POC) " /> <statusCode code="completed" /> <effectiveTime value= "740467062367" /> <value unit="mg/dL" xsi:type="PQ" value="106" /> <interpretationCode codeSystem="local" code="*" /> < referenceRange> <observationRange> <text>70-99</text> </observationRange> </referenceRange> </observation> </component> </organizer> </entry> <entry> <organizer moodCode="EVN " classCode="BATTERY"> <templateId root="216.840.1.034387.10.20.22.4.1" / > <id nullFlavor="NA" /> <code codeSystem="local" code="GLUMON" displayName="GLUCOSE (POC)" /> <statusCode code="completed" /> < component> <observation moodCode="EVN" classCode="OBS"> < templateId root="216.840.1.562002.10.20.22.4.2" /> <id nullFlavor="NA " /> <code codeSystem="local" code="GLUMON" displayName="GLUCOSE (POC) " /> <statusCode code="completed" /> <effectiveTime value= "037844239223" /> <value unit="mg/dL" xsi:type="PQ" value="102" /> <interpretationCode codeSystem="local" code="*" /> < referenceRange> <observationRange> <text>70-99</text> </observationRange> </referenceRange> </observation> </component> </organizer> </entry> <entry> <organizer moodCode="EVN " classCode="BATTERY"> <templateId root="216.840.1.757498.10.20.22.4.1" / > <id nullFlavor="NA" /> <code codeSystem="local" code="PTTH" displayName="PTT HEPARIN PROTOCOLS" /> <statusCode code="completed" /> <component> <observation moodCode="EVN" classCode="OBS"> < templateId root="05.27.840.1.675702.10..22.4.2" /> <id nullFlavor="NA " /> <code codeSystem="local" code="PTT" displayName="PARTIAL THROMBOPLASTIN TIME" /> <statusCode code="completed" /> < effectiveTime value="147150425864" /> <value unit="sec" xsi:type="PQ" value="79" /> <interpretationCode codeSystem="local" code="*" /> <referenceRange> <observationRange> <text>23-39</ text> </observationRange> </referenceRange> </ observation> </component> </organizer> </entry> <entry> <organizer moodCode="EVN" classCode="BATTERY"> <templateId root= "05.27.840.1.217815.10..22.4.1" /> <id nullFlavor="NA" /> <code codeSystem="local" code="GLUMON" displayName="GLUCOSE (POC)" /> < statusCode code="completed" /> <component> <observation moodCode= "EVN" classCode="OBS"> <templateId root="05.27.840.1.530459.10..22.4.2 " /> <id nullFlavor="NA" /> <code codeSystem="local" code= "GLUMON" displayName="GLUCOSE (POC)" /> <statusCode code="completed" / > <effectiveTime value="997861157241" /> <value unit="mg/dL" xsi:type="PQ" value="99" /> <referenceRange> < observationRange> <text>70-99</text> </observationRange > </referenceRange> </observation> </component> </ organizer> </entry> <entry> <organizer moodCode="EVN" classCode="BATTERY"> <templateId root="05.27.840.1.947022.01.28.22.4.1" /> <id nullFlavor= "NA" /> <code codeSystem="local" code="PTTH" displayName="PTT HEPARIN PROTOCOLS" /> <statusCode code="completed" /> <component> < observation moodCode="EVN" classCode="OBS"> <templateId root= "840.1.005768.01.28.22.4.2" /> <id nullFlavor="NA" /> < code codeSystem="local" code="PTT" displayName="PARTIAL THROMBOPLASTIN TIME" /> <statusCode code="completed" /> <effectiveTime value= "582903018669" /> <value unit="sec" xsi:type="PQ" value="79" /> <interpretationCode codeSystem="local" code="*" /> <referenceRange> <observationRange> <text>23-39</text> </ observationRange> </referenceRange> </observation> </ component> </organizer> </entry> <entry> <organizer moodCode="EVN" classCode="BATTERY"> <templateId root="840.1.880401.01.28.22.4.1" /> <id nullFlavor="NA" /> <code codeSystem="local" code="GLUMON" displayName="GLUCOSE (POC)" /> <statusCode code="completed" /> < component> <observation moodCode="EVN" classCode="OBS"> < templateId root="05.27.840.1.931468.10.4.2" /> <id nullFlavor="NA " /> <code codeSystem="local" code="GLUMON" displayName="GLUCOSE (POC) " /> <statusCode code="completed" /> <effectiveTime value= "229599446311" /> <value unit="mg/dL" xsi:type="PQ" value="104" /> <interpretationCode codeSystem="local" code="*" /> < referenceRange> <observationRange> <text>70-99</text> </observationRange> </referenceRange> </observation> </component> </organizer> </entry> <entry> <organizer moodCode="EVN " classCode="BATTERY"> <templateId root="16.840.1.979173.10..22.4.1" / > <id nullFlavor="NA" /> <code codeSystem="local" code="GLUMON" displayName="GLUCOSE (POC)" /> <statusCode code="completed" /> < component> <observation moodCode="EVN" classCode="OBS"> < templateId root="16.840.1.605648.10..22.4.2" /> <id nullFlavor="NA " /> <code codeSystem="local" code="GLUMON" displayName="GLUCOSE (POC) " /> <statusCode code="completed" /> <effectiveTime value= "188830042602" /> <value unit="mg/dL" xsi:type="PQ" value="98" /> <referenceRange> <observationRange> <text>70-99</ text> </observationRange> </referenceRange> </ observation> </component> </organizer> </entry> <entry> <organizer moodCode="EVN" classCode="BATTERY"> <templateId root= "16.840.1.481547.10..22.4.1" /> <id nullFlavor="NA" /> <code codeSystem="local" code="PTTH" displayName="PTT HEPARIN PROTOCOLS" /> < statusCode code="completed" /> <component> <observation moodCode= "EVN" classCode="OBS"> <templateId root="216.840.1.120537.10.4.2 " /> <id nullFlavor="NA" /> <code codeSystem="local" code="PTT " displayName="PARTIAL THROMBOPLASTIN TIME" /> <statusCode code= "completed" /> <effectiveTime value="311078905093" /> <value unit="sec" xsi:type="PQ" value="62" /> <interpretationCode codeSystem= "local" code="*" /> <referenceRange> <observationRange> <text>23-39</text> </observationRange> </ referenceRange> </observation> </component> </organizer> </entry > <entry> <organizer moodCode="EVN" classCode="BATTERY"> <templateId root="216.840.1.320815.10..22.4.1" /> <id nullFlavor="NA" /> <code codeSystem="local" code="CBC" displayName="CBC" /> <statusCode code= "completed" /> <component> <observation moodCode="EVN" classCode= "OBS"> <templateId root="216.840.1.387538.10...4.2" /> < id nullFlavor="NA" /> <code codeSystem="local" code="CBCCOM" displayName="COMMENT" /> <statusCode code="completed" /> < effectiveTime value="743058500890" /> <value unit="" xsi:type="PQ" value="CC" /> <referenceRange> <observationRange> <text /> </observationRange> </referenceRange> </ observation> </component> <component> <observation moodCode= "EVN" classCode="OBS"> <templateId root="05.27.840.1.439005.10..4.2 " /> <id nullFlavor="NA" /> <code codeSystem="local" code="MCH " displayName="MEAN CELL HGB" /> <statusCode code="completed" /> <effectiveTime value="916426974899" /> <value unit="pg" xsi:type= "PQ" value="25.6" /> <interpretationCode codeSystem="local" code="*" / > <referenceRange> <observationRange> <text> 27.0-33.0</text> </observationRange> </referenceRange> </observation> </component> <component> <observation moodCode="EVN" classCode="OBS"> <templateId root= "840.1.205930.01.28.22.4.2" /> <id nullFlavor="NA" /> < code codeSystem="local" code="MCHC" displayName="MEAN CELL HGB CONCENTRATION" / > <statusCode code="completed" /> <effectiveTime value= "" /> <value unit="g/dL" xsi:type="PQ" value="30.6" /> <interpretationCode codeSystem="local" code="*" /> < referenceRange> <observationRange> <text>32.0-37.0</text > </observationRange> </referenceRange> </observation > </component> <component> <observation moodCode="EVN" classCode="OBS"> <templateId root="840.1.803777.10.4.2" /> <id nullFlavor="NA" /> <code codeSystem="local" code="MCV" displayName="MEAN CELL VOLUME" /> <statusCode code="completed" /> <effectiveTime value="" /> <value unit="fl" xsi:type= "PQ" value="83.7" /> <referenceRange> <observationRange> <text>80.0-100.0</text> </observationRange> </ referenceRange> </observation> </component> <component> <observation moodCode="EVN" classCode="OBS"> <templateId root= "216.840.1.466639.10.22.4.2" /> <id nullFlavor="NA" /> < code codeSystem="local" code="RBC" displayName="RED BLOOD CELL" /> < statusCode code="completed" /> <effectiveTime value="611412992091" /> <value unit="m/cumm" xsi:type="PQ" value="2.89" /> < interpretationCode codeSystem="local" code="*" /> <referenceRange> <observationRange> <text>4.00-6.00</text> </ observationRange> </referenceRange> </observation> </ component> <component> <observation moodCode="EVN" classCode="OBS"> <templateId root="05.27.840.1.013263.01.28.22.4.2" /> <id nullFlavor="NA" /> <code codeSystem="local" code="RDW" displayName=" RED CELL DISTRIBUTION WIDTH" /> <statusCode code="completed" /> <effectiveTime value="036985084878" /> <value unit="%" xsi:type= "PQ" value="15.4" /> <referenceRange> <observationRange> <text>11.0-15.6</text> </observationRange> </ referenceRange> </observation> </component> <component> <observation moodCode="EVN" classCode="OBS"> <templateId root= "216.840.1.200565.22.4.2" /> <id nullFlavor="NA" /> < code codeSystem="local" code="WBC" displayName="WHITE BLOOD CELL" /> < statusCode code="completed" /> <effectiveTime value="" /> <value unit="k/cumm" xsi:type="PQ" value="6.3" /> < referenceRange> <observationRange> <text>5.0-10.0</text > </observationRange> </referenceRange> </observation > </component> <component> <observation moodCode="EVN" classCode="OBS"> <templateId root="2.16.840.1.731880.10..22.4.2" /> <id nullFlavor="NA" /> <code codeSystem="local" code="HGBT" displayName="HEMOGLOBIN" /> <statusCode code="completed" /> < effectiveTime value="" /> <value unit="gm/dL" xsi:type="PQ " value="7.4" /> <interpretationCode codeSystem="local" code="*" /> <referenceRange> <observationRange> <text>12.0- 16.0</text> </observationRange> </referenceRange> </ observation> </component> <component> <observation moodCode= "EVN" classCode="OBS"> <templateId root="2.16.840.1.158345.10.20.22.4.2 " /> <id nullFlavor="NA" /> <code codeSystem="local" code= "HCTT" displayName="HEMATOCRIT" /> <statusCode code="completed" /> <effectiveTime value="" /> <value unit="%" xsi: type="PQ" value="24.2" /> <interpretationCode codeSystem="local" code= "*" /> <referenceRange> <observationRange> < text>37.0-47.0</text> </observationRange> </referenceRange> </observation> </component> </organizer> </entry> <entry> < organizer moodCode="EVN" classCode="BATTERY"> <templateId root= "05.27.840.1.673447.10..22.4.1" /> <id nullFlavor="NA" /> <code codeSystem="local" code="GLUMON" displayName="GLUCOSE (POC)" /> < statusCode code="completed" /> <component> <observation moodCode= "EVN" classCode="OBS"> <templateId root="840.1.287004.01.28.22.4.2 " /> <id nullFlavor="NA" /> <code codeSystem="local" code= "GLUMON" displayName="GLUCOSE (POC)" /> <statusCode code="completed" / > <effectiveTime value="759472884946" /> <value unit="mg/dL" xsi:type="PQ" value="95" /> <referenceRange> < observationRange> <text>70-99</text> </observationRange > </referenceRange> </observation> </component> </ organizer> </entry> <entry> <organizer moodCode="EVN" classCode="BATTERY"> <templateId root="840.1.657291.01.28.22.4.1" /> <id nullFlavor= "NA" /> <code codeSystem="local" code="VANCT" displayName="VANCOMYCIN TROUGH" /> <statusCode code="completed" /> <component> < observation moodCode="EVN" classCode="OBS"> <templateId root= "05.27.840.1.387210.10..22.4.2" /> <id nullFlavor="NA" /> < code codeSystem="local" code="VANCT" displayName="VANCOMYCIN TROUGH" /> <statusCode code="completed" /> <effectiveTime value="206843236928" / > <value unit="mcg/mL" xsi:type="PQ" value="16.0" /> < referenceRange> <observationRange> <text>5.0-20.0</text > </observationRange> </referenceRange> </observation > </component> </organizer> </entry> <entry> <organizer moodCode= "EVN" classCode="BATTERY"> <templateId root="16.840.1.791245.10..22.4.1 " /> <id nullFlavor="NA" /> <code codeSystem="local" code="GLUMON" displayName="GLUCOSE (POC)" /> <statusCode code="completed" /> < component> <observation moodCode="EVN" classCode="OBS"> < templateId root="16.840.1.124853.10.20.22.4.2" /> <id nullFlavor="NA " /> <code codeSystem="local" code="GLUMON" displayName="GLUCOSE (POC) " /> <statusCode code="completed" /> <effectiveTime value= "650556542774" /> <value unit="mg/dL" xsi:type="PQ" value="109" /> <interpretationCode codeSystem="local" code="*" /> < referenceRange> <observationRange> <text>70-99</text> </observationRange> </referenceRange> </observation> </component> </organizer> </entry> <entry> <organizer moodCode="EVN " classCode="BATTERY"> <templateId root="16.840.1.078858.10.20.22.4.1" / > <id nullFlavor="NA" /> <code codeSystem="local" code="GLUMON" displayName="GLUCOSE (POC)" /> <statusCode code="completed" /> < component> <observation moodCode="EVN" classCode="OBS"> < templateId root="2.16.840.1.215131.10.22.4.2" /> <id nullFlavor="NA " /> <code codeSystem="local" code="GLUMON" displayName="GLUCOSE (POC) " /> <statusCode code="completed" /> <effectiveTime value= "190274715087" /> <value unit="mg/dL" xsi:type="PQ" value="114" /> <interpretationCode codeSystem="local" code="*" /> < referenceRange> <observationRange> <text>70-99</text> </observationRange> </referenceRange> </observation> </component> </organizer> </entry> <entry> <organizer moodCode="EVN " classCode="BATTERY"> <templateId root="2.16.840.1.585633.10..22.4.1" / > <id nullFlavor="NA" /> <code codeSystem="local" code="GLUMON" displayName="GLUCOSE (POC)" /> <statusCode code="completed" /> < component> <observation moodCode="EVN" classCode="OBS"> < templateId root="216.840.1.284013.10..22.4.2" /> <id nullFlavor="NA " /> <code codeSystem="local" code="GLUMON" displayName="GLUCOSE (POC) " /> <statusCode code="completed" /> <effectiveTime value= "189999796709" /> <value unit="mg/dL" xsi:type="PQ" value="109" /> <interpretationCode codeSystem="local" code="*" /> < referenceRange> <observationRange> <text>70-99</text> </observationRange> </referenceRange> </observation> </component> </organizer> </entry> <entry> <organizer moodCode="EVN " classCode="BATTERY"> <templateId root="05.27.840.1.238452.10.4.1" / > <id nullFlavor="NA" /> <code codeSystem="local" code="PTTH" displayName="PTT HEPARIN PROTOCOLS" /> <statusCode code="completed" /> <component> <observation moodCode="EVN" classCode="OBS"> < templateId root="840.1.025690.01.28.22.4.2" /> <id nullFlavor="NA " /> <code codeSystem="local" code="PTT" displayName="PARTIAL THROMBOPLASTIN TIME" /> <statusCode code="completed" /> < effectiveTime value="713132088809" /> <value unit="sec" xsi:type="PQ" value="81" /> <interpretationCode codeSystem="local" code="*" /> <referenceRange> <observationRange> <text>23-39</ text> </observationRange> </referenceRange> </ observation> </component> </organizer> </entry> <entry> <organizer moodCode="EVN" classCode="BATTERY"> <templateId root= "[id number]" /> <id nullFlavor="NA" /> <code codeSystem="local" code="GLUMON" displayName="GLUCOSE (POC)" /> < statusCode code="completed" /> <component> <observation moodCode= "EVN" classCode="OBS"> <templateId root="[id number] " /> <id nullFlavor="NA" /> <code codeSystem="local" code= "GLUMON" displayName="GLUCOSE (POC)" /> <statusCode code="completed" / > <effectiveTime value="351526311639" /> <value unit="mg/dL" xsi:type="PQ" value="106" /> <interpretationCode codeSystem="local" code="*" /> <referenceRange> <observationRange> <text>70-99</text> </observationRange> </referenceRange> </observation> </component> </organizer> </entry> <entry> < organizer moodCode="EVN" classCode="BATTERY"> <templateId root= "16.840.1.656310.10..22.4.1" /> <id nullFlavor="NA" /> <code codeSystem="local" code="GLUMON" displayName="GLUCOSE (POC)" /> < statusCode code="completed" /> <component> <observation moodCode= "EVN" classCode="OBS"> <templateId root="216.840.1.528719.10..22.4.2 " /> <id nullFlavor="NA" /> <code codeSystem="local" code= "GLUMON" displayName="GLUCOSE (POC)" /> <statusCode code="completed" / > <effectiveTime value="467546915858" /> <value unit="mg/dL" xsi:type="PQ" value="92" /> <referenceRange> < observationRange> <text>70-99</text> </observationRange > </referenceRange> </observation> </component> </ organizer> </entry> <entry> <organizer moodCode="EVN" classCode="BATTERY"> <templateId root="16.840.1.514863.10.20.22.4.1" /> <id nullFlavor= "NA" /> <code codeSystem="local" code="GLUMON" displayName="GLUCOSE (POC)" /> <statusCode code="completed" /> <component> <observation moodCode="EVN" classCode="OBS"> <templateId root= "216.840.1.557752.10.22.4.2" /> <id nullFlavor="NA" /> < code codeSystem="local" code="GLUMON" displayName="GLUCOSE (POC)" /> < statusCode code="completed" /> <effectiveTime value="755198248577" /> <value unit="mg/dL" xsi:type="PQ" value="122" /> < interpretationCode codeSystem="local" code="*" /> <referenceRange> <observationRange> <text>70-99</text> </ observationRange> </referenceRange> </observation> </ component> </organizer> </entry> <entry> <organizer moodCode="EVN" classCode="BATTERY"> <templateId root="16.840.1.665343.10..4.1" /> <id nullFlavor="NA" /> <code codeSystem="local" code="GLUMON" displayName="GLUCOSE (POC)" /> <statusCode code="completed" /> < component> <observation moodCode="EVN" classCode="OBS"> < templateId root="16.840.1.280994.10..4.2" /> <id nullFlavor="NA " /> <code codeSystem="local" code="GLUMON" displayName="GLUCOSE (POC) " /> <statusCode code="completed" /> <effectiveTime value= "861741781405" /> <value unit="mg/dL" xsi:type="PQ" value="102" /> <interpretationCode codeSystem="local" code="*" /> < referenceRange> <observationRange> <text>70-99</text> </observationRange> </referenceRange> </observation> </component> </organizer> </entry> <entry> <organizer moodCode="EVN " classCode="BATTERY"> <templateId root="05.27.840.1.222382.10...4.1" / > <id nullFlavor="NA" /> <code codeSystem="local" code="BCLACT" displayName="BC REFLEX LACTIC ACID" /> <statusCode code="completed" /> <component> <observation moodCode="EVN" classCode="OBS"> < templateId root="840.1.525399...4.2" /> <id nullFlavor="NA " /> <code codeSystem="local" code="LACT" displayName="LACTIC ACID" /> <statusCode code="completed" /> <effectiveTime value= "569421305406" /> <value unit="mmol/L" xsi:type="PQ" value="0.5" /> <referenceRange> <observationRange> <text>0.5-2.0 </text> </observationRange> </referenceRange> </ observation> </component> </organizer> </entry> <entry> <organizer moodCode="EVN" classCode="BATTERY"> <templateId root= "840.1.698354.01.28.22.4.1" /> <id nullFlavor="NA" /> <code codeSystem="local" code="BC" displayName="BLOOD CULTURE" /> <statusCode code="completed" /> <component> <observation moodCode="EVN" classCode="OBS"> <templateId root="05.27.840.1.864554.10..22.4.2" /> <id nullFlavor="NA" /> <code codeSystem="local" code="MB" displayName="Microbiology" /> <statusCode code="completed" /> <effectiveTime value="945960824874" /> <value xsi:type="ST" value="<pre ><b>BLOOD CULTURE</b> See BelowIs this the first BLOOD CULTURE or a possible SEPSIS patient? YBLOOD CULTURE(F) Sanam Date/Time: 04/13/2015 21: 12 Crow Date/Time: 04/19/2015 07:32SOURCE: BLOODSPEC DESC: [id number] GROWTH AFTER [address] [address]</pre>" /> <referenceRange> < observationRange> <text /> </observationRange> </referenceRange> </observation> </component> </organizer> </ entry> <entry> <organizer moodCode="EVN" classCode="BATTERY"> < templateId root="2.16.840.1.124843.10.20.22.4.1" /> <id nullFlavor="NA" /> <code codeSystem="local" code="BC" displayName="BLOOD CULTURE" /> < statusCode code="completed" /> <component> <observation moodCode= "EVN" classCode="OBS"> <templateId root="2.16.840.1.490044.10.20.22.4.2 " /> <id nullFlavor="NA" /> <code codeSystem="local" code="MB " displayName="Microbiology" /> <statusCode code="completed" /> <effectiveTime value="354372428621" /> <value xsi:type="ST" value="< pre><b>BLOOD CULTURE</b> See BelowIs this the first BLOOD CULTURE or a possible SEPSIS patient? YBLOOD CULTURE(F) Sanam Date/Time: 04/13/2015 21: 22 Crow Date/Time: 04/19/2015 07:32SOURCE: BLOODSPEC DESC: [id number] GROWTH AFTER [address] [address]</pre>" /> <referenceRange> < observationRange> <text /> </observationRange> </referenceRange> </observation> </component> </organizer> </ entry> <entry> <organizer moodCode="EVN" classCode="BATTERY"> < templateId root="05.27.840.1.551409.10..22.4.1" /> <id nullFlavor="NA" /> <code codeSystem="local" code="GLUMON" displayName="GLUCOSE (POC)" /> <statusCode code="completed" /> <component> <observation moodCode= "EVN" classCode="OBS"> <templateId root="840.1.150137.10...4.2 " /> <id nullFlavor="NA" /> <code codeSystem="local" code= "GLUMON" displayName="GLUCOSE (POC)" /> <statusCode code="completed" / > <effectiveTime value="904267446575" /> <value unit="mg/dL" xsi:type="PQ" value="99" /> <referenceRange> < observationRange> <text>70-99</text> </observationRange > </referenceRange> </observation> </component> </ organizer> </entry> <entry> <organizer moodCode="EVN" classCode="BATTERY"> <templateId root="840.1.468382.10...4.1" /> <id nullFlavor= "NA" /> <code codeSystem="local" code="PTTH" displayName="PTT HEPARIN PROTOCOLS" /> <statusCode code="completed" /> <component> < observation moodCode="EVN" classCode="OBS"> <templateId root= "05.27.840.1.303533.10..22.4.2" /> <id nullFlavor="NA" /> < code codeSystem="local" code="PTT" displayName="PARTIAL THROMBOPLASTIN TIME" /> <statusCode code="completed" /> <effectiveTime value= "159900153845" /> <value unit="sec" xsi:type="PQ" value="89" /> <interpretationCode codeSystem="local" code="*" /> <referenceRange> <observationRange> <text>23-39</text> </ observationRange> </referenceRange> </observation> </ component> </organizer> </entry> <entry> <organizer moodCode="EVN" classCode="BATTERY"> <templateId root="05.27.840.1.596188.10.22.4.1" /> <id nullFlavor="NA" /> <code codeSystem="local" code="METAB" displayName="METABOLIC PANEL, BASIC" /> <statusCode code="completed" /> <component> <observation moodCode="EVN" classCode="OBS"> < templateId root="840.1.101211.10..22.4.2" /> <id nullFlavor="NA " /> <code codeSystem="local" code="K" displayName="POTASSIUM" /> <statusCode code="completed" /> <effectiveTime value="182251831867 " /> <value unit="mmol/L" xsi:type="PQ" value="3.7" /> < referenceRange> <observationRange> <text>3.5-5.3</text> </observationRange> </referenceRange> </observation > </component> <component> <observation moodCode="EVN" classCode="OBS"> <templateId root="05.27.840.1.852220.10.20.22.4.2" /> <id nullFlavor="NA" /> <code codeSystem="local" code="eGFR" displayName="EST GFR (MDRD)" /> <statusCode code="completed" /> <effectiveTime value="" /> <value unit="mL/min" xsi:type ="PQ" value="> 60" /> <referenceRange> <observationRange > <text>> 59</text> </observationRange> </ referenceRange> </observation> </component> <component> <observation moodCode="EVN" classCode="OBS"> <templateId root= "216.840.1.694704.10...4.2" /> <id nullFlavor="NA" /> < code codeSystem="local" code="GAP" displayName="ANION GAP" /> < statusCode code="completed" /> <effectiveTime value="" /> <value unit="mmol/L" xsi:type="PQ" value="9" /> < referenceRange> <observationRange> <text>5-15</text> </observationRange> </referenceRange> </observation> </component> <component> <observation moodCode="EVN" classCode= "OBS"> <templateId root="216.840.1.119867.10..22.4.2" /> < id nullFlavor="NA" /> <code codeSystem="local" code="eCrCl" displayName ="EST CrCl (CG)" /> <statusCode code="completed" /> < effectiveTime value="601168158158" /> <value unit="mL/min" xsi:type="PQ " value="> 60" /> <referenceRange> <observationRange> <text>> 59</text> </observationRange> </ referenceRange> </observation> </component> <component> <observation moodCode="EVN" classCode="OBS"> <templateId root= "216.840.1.330907.01.28.22.4.2" /> <id nullFlavor="NA" /> < code codeSystem="local" code="GLU" displayName="GLUCOSE" /> < statusCode code="completed" /> <effectiveTime value="" /> <value unit="mg/dL" xsi:type="PQ" value="98" /> < referenceRange> <observationRange> <text>70-99</text> </observationRange> </referenceRange> </observation> </component> <component> <observation moodCode="EVN" classCode= "OBS"> <templateId root="216.840.1.888631.01.28.22.4.2" /> < id nullFlavor="NA" /> <code codeSystem="local" code="CA" displayName= "CALCIUM" /> <statusCode code="completed" /> <effectiveTime value="" /> <value unit="mg/dL" xsi:type="PQ" value="8.6" / > <referenceRange> <observationRange> <text>8.5 -10.1</text> </observationRange> </referenceRange> </ observation> </component> <component> <observation moodCode= "EVN" classCode="OBS"> <templateId root="216.840.1.459354.22.4.2 " /> <id nullFlavor="NA" /> <code codeSystem="local" code="BUN " displayName="BLOOD UREA NITROGEN" /> <statusCode code="completed" /> <effectiveTime value="" /> <value unit="mg/dL" xsi:type="PQ" value="6" /> <interpretationCode codeSystem="local" code= "*" /> <referenceRange> <observationRange> < text>7-20</text> </observationRange> </referenceRange> </observation> </component> <component> <observation moodCode="EVN" classCode="OBS"> <templateId root= "216.840.1.052469.10..4.2" /> <id nullFlavor="NA" /> < code codeSystem="local" code="CREAT" displayName="CREATININE" /> < statusCode code="completed" /> <effectiveTime value="" /> <value unit="mg/dL" xsi:type="PQ" value="0.7" /> < referenceRange> <observationRange> <text>0.6-1.0</text> </observationRange> </referenceRange> </observation > </component> <component> <observation moodCode="EVN" classCode="OBS"> <templateId root="216.840.1.731529.01.28.22.4.2" /> <id nullFlavor="NA" /> <code codeSystem="local" code="NA" displayName="SODIUM" /> <statusCode code="completed" /> < effectiveTime value="" /> <value unit="mmol/L" xsi:type="PQ " value="135" /> <referenceRange> <observationRange> <text>135-148</text> </observationRange> </ referenceRange> </observation> </component> <component> <observation moodCode="EVN" classCode="OBS"> <templateId root= "16.840.1.056321.10..22.4.2" /> <id nullFlavor="NA" /> < code codeSystem="local" code="CL" displayName="CHLORIDE" /> < statusCode code="completed" /> <effectiveTime value="" /> <value unit="mmol/L" xsi:type="PQ" value="102" /> < referenceRange> <observationRange> <text>98-110</text> </observationRange> </referenceRange> </observation> </component> <component> <observation moodCode="EVN" classCode ="OBS"> <templateId root="16.840.1.541551.10.20.22.4.2" /> < id nullFlavor="NA" /> <code codeSystem="local" code="CO2" displayName= "CARBON DIOXIDE" /> <statusCode code="completed" /> < effectiveTime value="258532228918" /> <value unit="mmol/L" xsi:type="PQ " value="24" /> <referenceRange> <observationRange> <text>21-32</text> </observationRange> </ referenceRange> </observation> </component> </organizer> </entry > <entry> <organizer moodCode="EVN" classCode="BATTERY"> <templateId root="16.840.1.328987.10.20.22.4.1" /> <id nullFlavor="NA" /> <code codeSystem="local" code="CBC" displayName="CBC" /> <statusCode code= "completed" /> <component> <observation moodCode="EVN" classCode= "OBS"> <templateId root="05.27.840.1.701674.10.20.22.4.2" /> < id nullFlavor="NA" /> <code codeSystem="local" code="MCH" displayName= "MEAN CELL HGB" /> <statusCode code="completed" /> < effectiveTime value="456280672208" /> <value unit="pg" xsi:type="PQ" value="25.3" /> <interpretationCode codeSystem="local" code="*" /> <referenceRange> <observationRange> <text>27.0- 33.0</text> </observationRange> </referenceRange> </ observation> </component> <component> <observation moodCode= "EVN" classCode="OBS"> <templateId root="216.840.1.944790.10..4.2 " /> <id nullFlavor="NA" /> <code codeSystem="local" code= "MCHC" displayName="MEAN CELL HGB CONCENTRATION" /> <statusCode code= "completed" /> <effectiveTime value="047599647370" /> <value unit="g/dL" xsi:type="PQ" value="30.6" /> <interpretationCode codeSystem="local" code="*" /> <referenceRange> < observationRange> <text>32.0-37.0</text> </ observationRange> </referenceRange> </observation> </ component> <component> <observation moodCode="EVN" classCode="OBS"> <templateId root="216.840.1.034762.01.28.22.4.2" /> <id nullFlavor="NA" /> <code codeSystem="local" code="MCV" displayName= "MEAN CELL VOLUME" /> <statusCode code="completed" /> < effectiveTime value="883323785502" /> <value unit="fl" xsi:type="PQ" value="82.8" /> <referenceRange> <observationRange> <text>80.0-100.0</text> </observationRange> </ referenceRange> </observation> </component> <component> <observation moodCode="EVN" classCode="OBS"> <templateId root= "216.840.1.134995.10..4.2" /> <id nullFlavor="NA" /> < code codeSystem="local" code="RBC" displayName="RED BLOOD CELL" /> < statusCode code="completed" /> <effectiveTime value="985168823116" /> <value unit="m/cumm" xsi:type="PQ" value="2.96" /> < interpretationCode codeSystem="local" code="*" /> <referenceRange> <observationRange> <text>4.00-6.00</text> </ observationRange> </referenceRange> </observation> </ component> <component> <observation moodCode="EVN" classCode="OBS"> <templateId root="216.840.1.021569.10.20.22.4.2" /> <id nullFlavor="NA" /> <code codeSystem="local" code="RDW" displayName=" RED CELL DISTRIBUTION WIDTH" /> <statusCode code="completed" /> <effectiveTime value="588737248209" /> <value unit="%" xsi:type= "PQ" value="15.9" /> <interpretationCode codeSystem="local" code="*" / > <referenceRange> <observationRange> <text> 11.0-15.6</text> </observationRange> </referenceRange> </observation> </component> <component> <observation moodCode="EVN" classCode="OBS"> <templateId root= "216.840.1.812401.10.20.22.4.2" /> <id nullFlavor="NA" /> < code codeSystem="local" code="WBC" displayName="WHITE BLOOD CELL" /> < statusCode code="completed" /> <effectiveTime value="921503904569" /> <value unit="k/cumm" xsi:type="PQ" value="5.3" /> < referenceRange> <observationRange> <text>5.0-10.0</text > </observationRange> </referenceRange> </observation > </component> <component> <observation moodCode="EVN" classCode="OBS"> <templateId root="05.27.840.1.132287.10..22.4.2" /> <id nullFlavor="NA" /> <code codeSystem="local" code="HGBT" displayName="HEMOGLOBIN" /> <statusCode code="completed" /> < effectiveTime value="248553891130" /> <value unit="gm/dL" xsi:type="PQ " value="7.5" /> <interpretationCode codeSystem="local" code="*" /> <referenceRange> <observationRange> <text>12.0- 16.0</text> </observationRange> </referenceRange> </ observation> </component> <component> <observation moodCode= "EVN" classCode="OBS"> <templateId root="05.27.840.1.088563.01.28.22.4.2 " /> <id nullFlavor="NA" /> <code codeSystem="local" code= "HCTT" displayName="HEMATOCRIT" /> <statusCode code="completed" /> <effectiveTime value="633777069098" /> <value unit="%" xsi: type="PQ" value="24.5" /> <interpretationCode codeSystem="local" code= "*" /> <referenceRange> <observationRange> < text>37.0-47.0</text> </observationRange> </referenceRange> </observation> </component> <component> <observation moodCode="EVN" classCode="OBS"> <templateId root= "05.27.840.1.674090.10..22.4.2" /> <id nullFlavor="NA" /> < code codeSystem="local" code="PLT" displayName="PLATELET COUNT" /> < statusCode code="completed" /> <effectiveTime value="933583801111" /> <value unit="k/cumm" xsi:type="PQ" value="Note" /> < referenceRange> <observationRange> <text>150-400</text> </observationRange> </referenceRange> </observation > </component> </organizer> </entry> <entry> <organizer moodCode= "EVN" classCode="BATTERY"> <templateId root="16.840.1.206674.10..22.4.1 " /> <id nullFlavor="NA" /> <code codeSystem="local" code="PLT" displayName="PLATELET COUNT" /> <statusCode code="completed" /> < component> <observation moodCode="EVN" classCode="OBS"> < templateId root="05.27.840.1.803611.10..4.2" /> <id nullFlavor="NA " /> <code codeSystem="local" code="PLT" displayName="PLATELET COUNT" / > <statusCode code="completed" /> <effectiveTime value= "793229096674" /> <value unit="k/cumm" xsi:type="PQ" value="225" /> <referenceRange> <observationRange> <text>150-400 </text> </observationRange> </referenceRange> </ observation> </component> </organizer> </entry> <entry> <organizer moodCode="EVN" classCode="BATTERY"> <templateId root= "16.840.1.724032.10.22.4.1" /> <id nullFlavor="NA" /> <code codeSystem="local" code="GLUMON" displayName="GLUCOSE (POC)" /> < statusCode code="completed" /> <component> <observation moodCode= "EVN" classCode="OBS"> <templateId root="05.27.840.1.049485.10.22.4.2 " /> <id nullFlavor="NA" /> <code codeSystem="local" code= "GLUMON" displayName="GLUCOSE (POC)" /> <statusCode code="completed" / > <effectiveTime value="684970207328" /> <value unit="mg/dL" xsi:type="PQ" value="97" /> <referenceRange> < observationRange> <text>70-99</text> </observationRange > </referenceRange> </observation> </component> </ organizer> </entry> <entry> <organizer moodCode="EVN" classCode="BATTERY"> <templateId root="216.840.1.310232.10..4.1" /> <id nullFlavor= "NA" /> <code codeSystem="local" code="GLUMON" displayName="GLUCOSE (POC)" /> <statusCode code="completed" /> <component> <observation moodCode="EVN" classCode="OBS"> <templateId root= "216.840.1.702375.10..22.4.2" /> <id nullFlavor="NA" /> < code codeSystem="local" code="GLUMON" displayName="GLUCOSE (POC)" /> < statusCode code="completed" /> <effectiveTime value="905165950795" /> <value unit="mg/dL" xsi:type="PQ" value="101" /> < interpretationCode codeSystem="local" code="*" /> <referenceRange> <observationRange> <text>70-99</text> </ observationRange> </referenceRange> </observation> </ component> </organizer> </entry> <entry> <organizer moodCode="EVN" classCode="BATTERY"> <templateId root="216.840.1.469537.10..4.1" /> <id nullFlavor="NA" /> <code codeSystem="local" code="GLUMON" displayName="GLUCOSE (POC)" /> <statusCode code="completed" /> < component> <observation moodCode="EVN" classCode="OBS"> < templateId root="16.840.1.249656.10..22.4.2" /> <id nullFlavor="NA " /> <code codeSystem="local" code="GLUMON" displayName="GLUCOSE (POC) " /> <statusCode code="completed" /> <effectiveTime value= "904499485191" /> <value unit="mg/dL" xsi:type="PQ" value="103" /> <interpretationCode codeSystem="local" code="*" /> < referenceRange> <observationRange> <text>70-99</text> </observationRange> </referenceRange> </observation> </component> </organizer> </entry> <entry> <organizer moodCode="EVN " classCode="BATTERY"> <templateId root="05.27.840.1.154140.10..4.1" / > <id nullFlavor="NA" /> <code codeSystem="local" code="GLUMON" displayName="GLUCOSE (POC)" /> <statusCode code="completed" /> < component> <observation moodCode="EVN" classCode="OBS"> < templateId root="05.27.840.1.426529.10..22.4.2" /> <id nullFlavor="NA " /> <code codeSystem="local" code="GLUMON" displayName="GLUCOSE (POC) " /> <statusCode code="completed" /> <effectiveTime value= "357539577319" /> <value unit="mg/dL" xsi:type="PQ" value="111" /> <interpretationCode codeSystem="local" code="*" /> < referenceRange> <observationRange> <text>70-99</text> </observationRange> </referenceRange> </observation> </component> </organizer> </entry> <entry> <organizer moodCode="EVN " classCode="BATTERY"> <templateId root="05.27.840.1.687114.10..22.4.1" / > <id nullFlavor="NA" /> <code codeSystem="local" code="PTTH" displayName="PTT HEPARIN PROTOCOLS" /> <statusCode code="completed" /> <component> <observation moodCode="EVN" classCode="OBS"> < templateId root="05.27.840.1.732885.10...4.2" /> <id nullFlavor="NA " /> <code codeSystem="local" code="PTT" displayName="PARTIAL THROMBOPLASTIN TIME" /> <statusCode code="completed" /> < effectiveTime value="678782792145" /> <value unit="sec" xsi:type="PQ" value="39" /> <referenceRange> <observationRange> <text>23-39</text> </observationRange> </referenceRange > </observation> </component> </organizer> </entry> <entry> <organizer moodCode="EVN" classCode="BATTERY"> <templateId root= "05.27.840.1.734814.10..22.4.1" /> <id nullFlavor="NA" /> <code codeSystem="local" code="CREATT" displayName="CREATININE" /> <statusCode code="completed" /> <component> <observation moodCode="EVN" classCode="OBS"> <templateId root="05.27.840.1.926280.10.20.22.4.2" /> <id nullFlavor="NA" /> <code codeSystem="local" code="eGFR" displayName="EST GFR (MDRD)" /> <statusCode code="completed" /> <effectiveTime value="079663681671" /> <value unit="mL/min" xsi:type ="PQ" value="> 60" /> <referenceRange> <observationRange > <text>> 59</text> </observationRange> </ referenceRange> </observation> </component> <component> <observation moodCode="EVN" classCode="OBS"> <templateId root= "05.27.840.1.704525...4.2" /> <id nullFlavor="NA" /> < code codeSystem="local" code="CREAT" displayName="CREATININE" /> < statusCode code="completed" /> <effectiveTime value="209311694953" /> <value unit="mg/dL" xsi:type="PQ" value="0.5" /> < interpretationCode codeSystem="local" code="*" /> <referenceRange> <observationRange> <text>0.6-1.0</text> </ observationRange> </referenceRange> </observation> </ component> </organizer> </entry> <entry> <organizer moodCode="EVN" classCode="BATTERY"> <templateId root="05.27.840.1.043473.22.4.1" /> <id nullFlavor="NA" /> <code codeSystem="local" code="GLUMON" displayName="GLUCOSE (POC)" /> <statusCode code="completed" /> < component> <observation moodCode="EVN" classCode="OBS"> < templateId root="05.27.840.1.840343.102022.4.2" /> <id nullFlavor="NA " /> <code codeSystem="local" code="GLUMON" displayName="GLUCOSE (POC) " /> <statusCode code="completed" /> <effectiveTime value= "130190386139" /> <value unit="mg/dL" xsi:type="PQ" value="108" /> <interpretationCode codeSystem="local" code="*" /> < referenceRange> <observationRange> <text>70-99</text> </observationRange> </referenceRange> </observation> </component> </organizer> </entry> <entry> <organizer moodCode="EVN " classCode="BATTERY"> <templateId root="216.840.1.370390.10.20.22.4.1" / > <id nullFlavor="NA" /> <code codeSystem="local" code="GLUMON" displayName="GLUCOSE (POC)" /> <statusCode code="completed" /> < component> <observation moodCode="EVN" classCode="OBS"> < templateId root="216.840.1.322945.10.20.22.4.2" /> <id nullFlavor="NA " /> <code codeSystem="local" code="GLUMON" displayName="GLUCOSE (POC) " /> <statusCode code="completed" /> <effectiveTime value= "734253634600" /> <value unit="mg/dL" xsi:type="PQ" value="79" /> <referenceRange> <observationRange> <text>70-99</ text> </observationRange> </referenceRange> </ observation> </component> </organizer> </entry> <entry> <organizer moodCode="EVN" classCode="BATTERY"> <templateId root= "216.840.1.597148.10.20.22.4.1" /> <id nullFlavor="NA" /> <code codeSystem="local" code="GLUMON" displayName="GLUCOSE (POC)" /> < statusCode code="completed" /> <component> <observation moodCode= "EVN" classCode="OBS"> <templateId root="[id number] " /> <id nullFlavor="NA" /> <code codeSystem="local" code= "GLUMON" displayName="GLUCOSE (POC)" /> <statusCode code="completed" / > <effectiveTime value="[id number]" /> <value unit="mg/dL" xsi:type="PQ" value="109" /> <interpretationCode codeSystem="local" code="*" /> <referenceRange> <observationRange> <text>70-99</text> </observationRange> </referenceRange> </observation> </component> </organizer> </entry> <entry> < organizer moodCode="EVN" classCode="BATTERY"> <templateId root= "2.16.840.1.843015.10..22.4.1" /> <id nullFlavor="NA" /> <code codeSystem="local" code="GLUMON" displayName="GLUCOSE (POC)" /> < statusCode code="completed" /> <component> <observation moodCode= "EVN" classCode="OBS"> <templateId root="216.840.1.055390.10..22.4.2 " /> <id nullFlavor="NA" /> <code codeSystem="local" code= "GLUMON" displayName="GLUCOSE (POC)" /> <statusCode code="completed" / > <effectiveTime value="[id number]" /> <value unit="mg/dL" xsi:type="PQ" value="86" /> <referenceRange> < observationRange> <text>70-99</text> </observationRange > </referenceRange> </observation> </component> </ organizer> </entry> <entry> <organizer moodCode="EVN" classCode="BATTERY"> <templateId root="840.1.518093.10..4.1" /> <id nullFlavor= "NA" /> <code codeSystem="local" code="GLUMON" displayName="GLUCOSE (POC)" /> <statusCode code="completed" /> <component> <observation moodCode="EVN" classCode="OBS"> <templateId root= "840.1.050656.01.28.22.4.2" /> <id nullFlavor="NA" /> < code codeSystem="local" code="GLUMON" displayName="GLUCOSE (POC)" /> < statusCode code="completed" /> <effectiveTime value="997616512755" /> <value unit="mg/dL" xsi:type="PQ" value="89" /> < referenceRange> <observationRange> <text>70-99</text> </observationRange> </referenceRange> </observation> </component> </organizer> </entry> <entry> <organizer moodCode="EVN " classCode="BATTERY"> <templateId root="840.1.679239.01.28.22.4.1" / > <id nullFlavor="NA" /> <code codeSystem="local" code="GLUMON" displayName="GLUCOSE (POC)" /> <statusCode code="completed" /> < component> <observation moodCode="EVN" classCode="OBS"> < templateId root="05.27.840.1.395862.01.28.22.4.2" /> <id nullFlavor="NA " /> <code codeSystem="local" code="GLUMON" displayName="GLUCOSE (POC) " /> <statusCode code="completed" /> <effectiveTime value= "[id number]" /> <value unit="mg/dL" xsi:type="PQ" value="104" /> <interpretationCode codeSystem="local" code="*" /> < referenceRange> <observationRange> <text>70-99</text> </observationRange> </referenceRange> </observation> </component> </organizer> </entry> <entry> <organizer moodCode="EVN " classCode="BATTERY"> <templateId root="216.840.1.465471.10..22.4.1" / > <id nullFlavor="NA" /> <code codeSystem="local" code="GLUMON" displayName="GLUCOSE (POC)" /> <statusCode code="completed" /> < component> <observation moodCode="EVN" classCode="OBS"> < templateId root="2.16.840.1.615462.10..22.4.2" /> <id nullFlavor="NA " /> <code codeSystem="local" code="GLUMON" displayName="GLUCOSE (POC) " /> <statusCode code="completed" /> <effectiveTime value= "817429631239" /> <value unit="mg/dL" xsi:type="PQ" value="95" /> <referenceRange> <observationRange> <text>70-99</ text> </observationRange> </referenceRange> </ observation> </component> </organizer> </entry> <entry> <organizer moodCode="EVN" classCode="BATTERY"> <templateId root= "216.840.1.765572.10..22.4.1" /> <id nullFlavor="NA" /> <code codeSystem="local" code="METAB" displayName="METABOLIC PANEL, BASIC" /> < statusCode code="completed" /> <component> <observation moodCode= "EVN" classCode="OBS"> <templateId root="16.840.1.399632.10..22.4.2 " /> <id nullFlavor="NA" /> <code codeSystem="local" code="K" displayName="POTASSIUM" /> <statusCode code="completed" /> < effectiveTime value="" /> <value unit="mmol/L" xsi:type="PQ " value="3.9" /> <referenceRange> <observationRange> <text>3.5-5.3</text> </observationRange> </ referenceRange> </observation> </component> <component> <observation moodCode="EVN" classCode="OBS"> <templateId root= "05.27.840.1.333689...4.2" /> <id nullFlavor="NA" /> < code codeSystem="local" code="eGFR" displayName="EST GFR (MDRD)" /> < statusCode code="completed" /> <effectiveTime value="" /> <value unit="mL/min" xsi:type="PQ" value="> 60" /> < referenceRange> <observationRange> <text>> 59</text> </observationRange> </referenceRange> </observation > </component> <component> <observation moodCode="EVN" classCode="OBS"> <templateId root="05.27.840.1.797469.10...4.2" /> <id nullFlavor="NA" /> <code codeSystem="local" code="GAP" displayName="ANION GAP" /> <statusCode code="completed" /> < effectiveTime value="" /> <value unit="mmol/L" xsi:type="PQ " value="11" /> <referenceRange> <observationRange> <text>5-15</text> </observationRange> </referenceRange > </observation> </component> <component> <observation moodCode="EVN" classCode="OBS"> <templateId root= "216.840.1.700748.10..4.2" /> <id nullFlavor="NA" /> < code codeSystem="local" code="eCrCl" displayName="EST CrCl (CG)" /> < statusCode code="completed" /> <effectiveTime value="" /> <value unit="mL/min" xsi:type="PQ" value="> 60" /> < referenceRange> <observationRange> <text>> 59</text> </observationRange> </referenceRange> </observation > </component> <component> <observation moodCode="EVN" classCode="OBS"> <templateId root="05.27.840.1.013383.01.28.22.4.2" /> <id nullFlavor="NA" /> <code codeSystem="local" code="GLU" displayName="GLUCOSE" /> <statusCode code="completed" /> < effectiveTime value="" /> <value unit="mg/dL" xsi:type="PQ " value="96" /> <referenceRange> <observationRange> <text>70-99</text> </observationRange> </ referenceRange> </observation> </component> <component> <observation moodCode="EVN" classCode="OBS"> <templateId root= "05.27.840.1.613080...4.2" /> <id nullFlavor="NA" /> < code codeSystem="local" code="CA" displayName="CALCIUM" /> <statusCode code="completed" /> <effectiveTime value="104032695003" /> < value unit="mg/dL" xsi:type="PQ" value="8.2" /> <interpretationCode codeSystem="local" code="*" /> <referenceRange> < observationRange> <text>8.5-10.1</text> </ observationRange> </referenceRange> </observation> </ component> <component> <observation moodCode="EVN" classCode="OBS"> <templateId root="216.840.1.647456..22.4.2" /> <id nullFlavor="NA" /> <code codeSystem="local" code="BUN" displayName= "BLOOD UREA NITROGEN" /> <statusCode code="completed" /> < effectiveTime value="574551606183" /> <value unit="mg/dL" xsi:type="PQ " value="5" /> <interpretationCode codeSystem="local" code="*" /> <referenceRange> <observationRange> <text>7-20</ text> </observationRange> </referenceRange> </ observation> </component> <component> <observation moodCode= "EVN" classCode="OBS"> <templateId root="16.840.1.745001..22.4.2 " /> <id nullFlavor="NA" /> <code codeSystem="local" code= "CREAT" displayName="CREATININE" /> <statusCode code="completed" /> <effectiveTime value="942827442854" /> <value unit="mg/dL" xsi: type="PQ" value="0.6" /> <referenceRange> <observationRange > <text>0.6-1.0</text> </observationRange> </ referenceRange> </observation> </component> <component> <observation moodCode="EVN" classCode="OBS"> <templateId root= "216.840.1.180441.01.28.22.4.2" /> <id nullFlavor="NA" /> < code codeSystem="local" code="NA" displayName="SODIUM" /> <statusCode code="completed" /> <effectiveTime value="827966141339" /> < value unit="mmol/L" xsi:type="PQ" value="139" /> <referenceRange> <observationRange> <text>135-148</text> </ observationRange> </referenceRange> </observation> </ component> <component> <observation moodCode="EVN" classCode="OBS"> <templateId root="2.16.840.1.542925.10..22.4.2" /> <id nullFlavor="NA" /> <code codeSystem="local" code="CL" displayName= "CHLORIDE" /> <statusCode code="completed" /> <effectiveTime value="140409555189" /> <value unit="mmol/L" xsi:type="PQ" value="105" /> <referenceRange> <observationRange> <text>98 -110</text> </observationRange> </referenceRange> </ observation> </component> <component> <observation moodCode= "EVN" classCode="OBS"> <templateId root="2.16.840.1.583895.10..22.4.2 " /> <id nullFlavor="NA" /> <code codeSystem="local" code="CO2 " displayName="CARBON DIOXIDE" /> <statusCode code="completed" /> <effectiveTime value="113519989079" /> <value unit="mmol/L" xsi: type="PQ" value="23" /> <referenceRange> <observationRange> <text>21-32</text> </observationRange> </ referenceRange> </observation> </component> </organizer> </entry > <entry> <organizer moodCode="EVN" classCode="BATTERY"> <templateId root="05.27.840.1.201463.10..4.1" /> <id nullFlavor="NA" /> <code codeSystem="local" code="CBC" displayName="CBC" /> <statusCode code= "completed" /> <component> <observation moodCode="EVN" classCode= "OBS"> <templateId root="840.1.074574.01.28.22.4.2" /> < id nullFlavor="NA" /> <code codeSystem="local" code="CBCCOM" displayName="COMMENT" /> <statusCode code="completed" /> < effectiveTime value="" /> <value unit="" xsi:type="PQ" value="REVIEWED" /> <referenceRange> <observationRange> <text /> </observationRange> </referenceRange> </observation> </component> <component> <observation moodCode="EVN" classCode="OBS"> <templateId root= "840.1.030167.01.28.22.4.2" /> <id nullFlavor="NA" /> < code codeSystem="local" code="MCH" displayName="MEAN CELL HGB" /> < statusCode code="completed" /> <effectiveTime value="" /> <value unit="pg" xsi:type="PQ" value="25.0" /> < interpretationCode codeSystem="local" code="*" /> <referenceRange> <observationRange> <text>27.0-33.0</text> </ observationRange> </referenceRange> </observation> </ component> <component> <observation moodCode="EVN" classCode="OBS"> <templateId root="05.27.840.1.599892.01.28.22.4.2" /> <id nullFlavor="NA" /> <code codeSystem="local" code="MCHC" displayName= "MEAN CELL HGB CONCENTRATION" /> <statusCode code="completed" /> <effectiveTime value="" /> <value unit="g/dL" xsi:type= "PQ" value="29.9" /> <interpretationCode codeSystem="local" code="*" / > <referenceRange> <observationRange> <text> 32.0-37.0</text> </observationRange> </referenceRange> </observation> </component> <component> <observation moodCode="EVN" classCode="OBS"> <templateId root= "216.840.1.080728.01.28.224.2" /> <id nullFlavor="NA" /> < code codeSystem="local" code="MCV" displayName="MEAN CELL VOLUME" /> < statusCode code="completed" /> <effectiveTime value="" /> <value unit="fl" xsi:type="PQ" value="83.6" /> <referenceRange > <observationRange> <text>80.0-100.0</text> </observationRange> </referenceRange> </observation> </ component> <component> <observation moodCode="EVN" classCode="OBS"> <templateId root="216.840.1.409093.01.28.224.2" /> <id nullFlavor="NA" /> <code codeSystem="local" code="RBC" displayName=" RED BLOOD CELL" /> <statusCode code="completed" /> < effectiveTime value="" /> <value unit="m/cumm" xsi:type="PQ " value="3.04" /> <interpretationCode codeSystem="local" code="*" /> <referenceRange> <observationRange> <text>4.00- 6.00</text> </observationRange> </referenceRange> </ observation> </component> <component> <observation moodCode= "EVN" classCode="OBS"> <templateId root="05.27.840.1.972887.10.20.22.4.2 " /> <id nullFlavor="NA" /> <code codeSystem="local" code="RDW " displayName="RED CELL DISTRIBUTION WIDTH" /> <statusCode code= "completed" /> <effectiveTime value="" /> <value unit="%" xsi:type="PQ" value="16.2" /> <interpretationCode codeSystem="local" code="*" /> <referenceRange> < observationRange> <text>11.0-15.6</text> </ observationRange> </referenceRange> </observation> </ component> <component> <observation moodCode="EVN" classCode="OBS"> <templateId root="05.27.840.1.033841.10.20.22.4.2" /> <id nullFlavor="NA" /> <code codeSystem="local" code="WBC" displayName= "WHITE BLOOD CELL" /> <statusCode code="completed" /> < effectiveTime value="" /> <value unit="k/cumm" xsi:type="PQ " value="4.7" /> <interpretationCode codeSystem="local" code="*" /> <referenceRange> <observationRange> <text>5.0- 10.0</text> </observationRange> </referenceRange> </ observation> </component> <component> <observation moodCode= "EVN" classCode="OBS"> <templateId root="05.27.840.1.068552.10.20.22.4.2 " /> <id nullFlavor="NA" /> <code codeSystem="local" code= "HGBT" displayName="HEMOGLOBIN" /> <statusCode code="completed" /> <effectiveTime value="" /> <value unit="gm/dL" xsi: type="PQ" value="7.6" /> <interpretationCode codeSystem="local" code="* " /> <referenceRange> <observationRange> <text> 12.0-16.0</text> </observationRange> </referenceRange> </observation> </component> <component> <observation moodCode="EVN" classCode="OBS"> <templateId root= "2.16.840.1.978732.10...4.2" /> <id nullFlavor="NA" /> < code codeSystem="local" code="HCTT" displayName="HEMATOCRIT" /> < statusCode code="completed" /> <effectiveTime value="" /> <value unit="%" xsi:type="PQ" value="25.4" /> < interpretationCode codeSystem="local" code="*" /> <referenceRange> <observationRange> <text>37.0-47.0</text> </ observationRange> </referenceRange> </observation> </ component> <component> <observation moodCode="EVN" classCode="OBS"> <templateId root="216.840.1.572590.1022.4.2" /> <id nullFlavor="NA" /> <code codeSystem="local" code="PLT" displayName= "PLATELET COUNT" /> <statusCode code="completed" /> < effectiveTime value="" /> <value unit="k/cumm" xsi:type="PQ " value="Note" /> <referenceRange> <observationRange> <text>150-400</text> </observationRange> </ referenceRange> </observation> </component> </organizer> </entry > <entry> <organizer moodCode="EVN" classCode="BATTERY"> <templateId root="05.27.840.1.681915.10..22.4.1" /> <id nullFlavor="NA" /> <code codeSystem="local" code="UA" displayName="URINALYSIS, ROUTINE" /> < statusCode code="completed" /> <component> <observation moodCode= "EVN" classCode="OBS"> <templateId root="16.840.1.110445.10...4.2 " /> <id nullFlavor="NA" /> <code codeSystem="local" code= "LEUESU" displayName="UA LEUKOCYTE ESTERASE DIPSTICK" /> <statusCode code="completed" /> <effectiveTime value="" /> < value unit="" xsi:type="PQ" value="NEGATIVE" /> <referenceRange> <observationRange> <text>NEGATIVE</text> </ observationRange> </referenceRange> </observation> </ component> <component> <observation moodCode="EVN" classCode="OBS"> <templateId root="05.27.840.1.617050.10..22.4.2" /> <id nullFlavor="NA" /> <code codeSystem="local" code="NITRIU" displayName= "UA NITRITE DIPSTICK" /> <statusCode code="completed" /> < effectiveTime value="" /> <value unit="" xsi:type="PQ" value="NEGATIVE" /> <referenceRange> <observationRange> <text>NEGATIVE</text> </observationRange> </ referenceRange> </observation> </component> <component> <observation moodCode="EVN" classCode="OBS"> <templateId root= "05.27.830.1.430025.10.4.2" /> <id nullFlavor="NA" /> < code codeSystem="local" code="PROTEIU" displayName="UA PROTEIN DIPSTICK" /> <statusCode code="completed" /> <effectiveTime value= "" /> <value unit="" xsi:type="PQ" value="NEGATIVE" /> <referenceRange> <observationRange> <text>NEGATIVE </text> </observationRange> </referenceRange> </ observation> </component> <component> <observation moodCode= "EVN" classCode="OBS"> <templateId root="216.840.1.147010.01.28.22.4.2 " /> <id nullFlavor="NA" /> <code codeSystem="local" code= "DGLUU" displayName="UA GLUCOSE DIPSTICK" /> <statusCode code= "completed" /> <effectiveTime value="" /> <value unit="" xsi:type="PQ" value="NEGATIVE" /> <referenceRange> < observationRange> <text>NEGATIVE</text> </ observationRange> </referenceRange> </observation> </ component> <component> <observation moodCode="EVN" classCode="OBS"> <templateId root="16.840.1.418900.01.28.22.4.2" /> <id nullFlavor="NA" /> <code codeSystem="local" code="KETONU" displayName= "UA KETONE DIPSTICK" /> <statusCode code="completed" /> < effectiveTime value="" /> <value unit="" xsi:type="PQ" value="2+" /> <interpretationCode codeSystem="local" code="*" /> <referenceRange> <observationRange> <text>NEGATIVE</ text> </observationRange> </referenceRange> </ observation> </component> <component> <observation moodCode= "EVN" classCode="OBS"> <templateId root="216.840.1.669988.10.4.2 " /> <id nullFlavor="NA" /> <code codeSystem="local" code= "UROBILU" displayName="UA UROBILINOGEN DIPSTICK" /> <statusCode code= "completed" /> <effectiveTime value="" /> <value unit="" xsi:type="PQ" value="2+" /> <interpretationCode codeSystem= "local" code="*" /> <referenceRange> <observationRange> <text>NORMAL</text> </observationRange> </ referenceRange> </observation> </component> <component> <observation moodCode="EVN" classCode="OBS"> <templateId root= "05.27.840.1.425360.01.28.22.4.2" /> <id nullFlavor="NA" /> < code codeSystem="local" code="BILU" displayName="UA BILIRUBIN DIPSTICK" /> <statusCode code="completed" /> <effectiveTime value=" " /> <value unit="" xsi:type="PQ" value="NEGATIVE" /> < referenceRange> <observationRange> <text>NEGATIVE</text > </observationRange> </referenceRange> </observation > </component> <component> <observation moodCode="EVN" classCode="OBS"> <templateId root="216.840.1.565109.01.28.22.4.2" /> <id nullFlavor="NA" /> <code codeSystem="local" code="MAKENZIE" displayName="UA BLOOD DIPSTICK" /> <statusCode code="completed" /> <effectiveTime value="" /> <value unit="" xsi:type= "PQ" value="NEGATIVE" /> <referenceRange> <observationRange > <text>NEGATIVE</text> </observationRange> </ referenceRange> </observation> </component> <component> <observation moodCode="EVN" classCode="OBS"> <templateId root= "16.840.1.093684.10...4.2" /> <id nullFlavor="NA" /> < code codeSystem="local" code="SPGRU" displayName="UA SPECIFIC GRAVITY" /> <statusCode code="completed" /> <effectiveTime value=" " /> <value unit="" xsi:type="PQ" value="1.021" /> < referenceRange> <observationRange> <text>1.015-1.025</ text> </observationRange> </referenceRange> </ observation> </component> <component> <observation moodCode= "EVN" classCode="OBS"> <templateId root="05.27.840.1.200829.10..4.2 " /> <id nullFlavor="NA" /> <code codeSystem="local" code="SEBLE " displayName="UR PH" /> <statusCode code="completed" /> < effectiveTime value="" /> <value unit="" xsi:type="PQ" value="6.0" /> <referenceRange> <observationRange> <text>5.0-7.0</text> </observationRange> </ referenceRange> </observation> </component> </organizer> </entry > <entry> <organizer moodCode="EVN" classCode="BATTERY"> <templateId root="05.27.840.1.784255.10.20.22.4.1" /> <id nullFlavor="NA" /> <code codeSystem="local" code="GLUMON" displayName="GLUCOSE (POC)" /> < statusCode code="completed" /> <component> <observation moodCode= "EVN" classCode="OBS"> <templateId root="216.840.1.283263.10..22.4.2 " /> <id nullFlavor="NA" /> <code codeSystem="local" code= "GLUMON" displayName="GLUCOSE (POC)" /> <statusCode code="completed" / > <effectiveTime value="577490085060" /> <value unit="mg/dL" xsi:type="PQ" value="90" /> <referenceRange> < observationRange> <text>70-99</text> </observationRange > </referenceRange> </observation> </component> </ organizer> </entry> <entry> <organizer moodCode="EVN" classCode="BATTERY"> <templateId root="16.840.1.096357.10..22.4.1" /> <id nullFlavor= "NA" /> <code codeSystem="local" code="GLUMON" displayName="GLUCOSE (POC)" /> <statusCode code="completed" /> <component> <observation moodCode="EVN" classCode="OBS"> <templateId root= "216.840.1.731605.10..22.4.2" /> <id nullFlavor="NA" /> < code codeSystem="local" code="GLUMON" displayName="GLUCOSE (POC)" /> < statusCode code="completed" /> <effectiveTime value="740612655092" /> <value unit="mg/dL" xsi:type="PQ" value="109" /> < interpretationCode codeSystem="local" code="*" /> <referenceRange> <observationRange> <text>70-99</text> </ observationRange> </referenceRange> </observation> </ component> </organizer> </entry> <entry> <organizer moodCode="EVN" classCode="BATTERY"> <templateId root="05.27.840.1.668955.01.28.22.4.1" /> <id nullFlavor="NA" /> <code codeSystem="local" code="GLUMON" displayName="GLUCOSE (POC)" /> <statusCode code="completed" /> < component> <observation moodCode="EVN" classCode="OBS"> < templateId root="840.1.649044.01.28.224.2" /> <id nullFlavor="NA " /> <code codeSystem="local" code="GLUMON" displayName="GLUCOSE (POC) " /> <statusCode code="completed" /> <effectiveTime value= "016064033999" /> <value unit="mg/dL" xsi:type="PQ" value="89" /> <referenceRange> <observationRange> <text>70-99</ text> </observationRange> </referenceRange> </ observation> </component> </organizer> </entry> <entry> <organizer moodCode="EVN" classCode="BATTERY"> <templateId root= "05.27.840.1.816082.01.28.22.4.1" /> <id nullFlavor="NA" /> <code codeSystem="local" code="GLUMON" displayName="GLUCOSE (POC)" /> < statusCode code="completed" /> <component> <observation moodCode= "EVN" classCode="OBS"> <templateId root="05.27.840.1.207525.01.28.22.4.2 " /> <id nullFlavor="NA" /> <code codeSystem="local" code= "GLUMON" displayName="GLUCOSE (POC)" /> <statusCode code="completed" / > <effectiveTime value="991743754198" /> <value unit="mg/dL" xsi:type="PQ" value="102" /> <interpretationCode codeSystem="local" code="*" /> <referenceRange> <observationRange> <text>70-99</text> </observationRange> </referenceRange> </observation> </component> </organizer> </entry> <entry> < organizer moodCode="EVN" classCode="BATTERY"> <templateId root= "16.840.1.079029.10.20.22.4.1" /> <id nullFlavor="NA" /> <code codeSystem="local" code="GLUMON" displayName="GLUCOSE (POC)" /> < statusCode code="completed" /> <component> <observation moodCode= "EVN" classCode="OBS"> <templateId root="16.840.1.922576.10.20.22.4.2 " /> <id nullFlavor="NA" /> <code codeSystem="local" code= "GLUMON" displayName="GLUCOSE (POC)" /> <statusCode code="completed" / > <effectiveTime value="061098757444" /> <value unit="mg/dL" xsi:type="PQ" value="100" /> <interpretationCode codeSystem="local" code="*" /> <referenceRange> <observationRange> <text>70-99</text> </observationRange> </referenceRange> </observation> </component> </organizer> </entry> <entry> < organizer moodCode="EVN" classCode="BATTERY"> <templateId root= "16.840.1.511193.10.20.22.4.1" /> <id nullFlavor="NA" /> <code codeSystem="local" code="GLUMON" displayName="GLUCOSE (POC)" /> < statusCode code="completed" /> <component> <observation moodCode= "EVN" classCode="OBS"> <templateId root="2.16.840.1.607977.10.22.4.2 " /> <id nullFlavor="NA" /> <code codeSystem="local" code= "GLUMON" displayName="GLUCOSE (POC)" /> <statusCode code="completed" / > <effectiveTime value="542863961244" /> <value unit="mg/dL" xsi:type="PQ" value="104" /> <interpretationCode codeSystem="local" code="*" /> <referenceRange> <observationRange> <text>70-99</text> </observationRange> </referenceRange> </observation> </component> </organizer> </entry> <entry> < organizer moodCode="EVN" classCode="BATTERY"> <templateId root= "2.16.840.1.773176.10.22.4.1" /> <id nullFlavor="NA" /> <code codeSystem="local" code="GLUMON" displayName="GLUCOSE (POC)" /> < statusCode code="completed" /> <component> <observation moodCode= "EVN" classCode="OBS"> <templateId root="2.16.840.1.751506.10..22.4.2 " /> <id nullFlavor="NA" /> <code codeSystem="local" code= "GLUMON" displayName="GLUCOSE (POC)" /> <statusCode code="completed" / > <effectiveTime value="025457065884" /> <value unit="mg/dL" xsi:type="PQ" value="102" /> <interpretationCode codeSystem="local" code="*" /> <referenceRange> <observationRange> <text>70-99</text> </observationRange> </referenceRange> </observation> </component> </organizer> </entry> <entry> < organizer moodCode="EVN" classCode="BATTERY"> <templateId root= "840.1.908645.01.28.22.4.1" /> <id nullFlavor="NA" /> <code codeSystem="local" code="GLUMON" displayName="GLUCOSE (POC)" /> < statusCode code="completed" /> <component> <observation moodCode= "EVN" classCode="OBS"> <templateId root="840.1.482161.01.28.22.4.2 " /> <id nullFlavor="NA" /> <code codeSystem="local" code= "GLUMON" displayName="GLUCOSE (POC)" /> <statusCode code="completed" / > <effectiveTime value="885990755613" /> <value unit="mg/dL" xsi:type="PQ" value="102" /> <interpretationCode codeSystem="local" code="*" /> <referenceRange> <observationRange> <text>70-99</text> </observationRange> </referenceRange> </observation> </component> </organizer> </entry> <entry> < organizer moodCode="EVN" classCode="BATTERY"> <templateId root= "840.1.839104.01.28.22.4.1" /> <id nullFlavor="NA" /> <code codeSystem="local" code="METAB" displayName="METABOLIC PANEL, BASIC" /> < statusCode code="completed" /> <component> <observation moodCode= "EVN" classCode="OBS"> <templateId root="840.1.834141.01.28.22.4.2 " /> <id nullFlavor="NA" /> <code codeSystem="local" code="K" displayName="POTASSIUM" /> <statusCode code="completed" /> < effectiveTime value="829291613741" /> <value unit="mmol/L" xsi:type="PQ " value="4.0" /> <referenceRange> <observationRange> <text>3.5-5.3</text> </observationRange> </ referenceRange> </observation> </component> <component> <observation moodCode="EVN" classCode="OBS"> <templateId root= "05.27.840.1.748323.10..22.4.2" /> <id nullFlavor="NA" /> < code codeSystem="local" code="eGFR" displayName="EST GFR (MDRD)" /> < statusCode code="completed" /> <effectiveTime value="[id number]" /> <value unit="mL/min" xsi:type="PQ" value="> 60" /> < referenceRange> <observationRange> <text>> 59</text> </observationRange> </referenceRange> </observation > </component> <component> <observation moodCode="EVN" classCode="OBS"> <templateId root="05.27.840.1.112196.10..22.4.2" /> <id nullFlavor="NA" /> <code codeSystem="local" code="GAP" displayName="ANION GAP" /> <statusCode code="completed" /> < effectiveTime value="233309961971" /> <value unit="mmol/L" xsi:type="PQ " value="6" /> <referenceRange> <observationRange> <text>5-15</text> </observationRange> </referenceRange > </observation> </component> <component> <observation moodCode="EVN" classCode="OBS"> <templateId root= "05.27.830.1.880301.10..4.2" /> <id nullFlavor="NA" /> < code codeSystem="local" code="eCrCl" displayName="EST CrCl (CG)" /> < statusCode code="completed" /> <effectiveTime value="" /> <value unit="mL/min" xsi:type="PQ" value="> 60" /> < referenceRange> <observationRange> <text>> 59</text> </observationRange> </referenceRange> </observation > </component> <component> <observation moodCode="EVN" classCode="OBS"> <templateId root="16.840.1.861186.01.28.22.4.2" /> <id nullFlavor="NA" /> <code codeSystem="local" code="GLU" displayName="GLUCOSE" /> <statusCode code="completed" /> < effectiveTime value="" /> <value unit="mg/dL" xsi:type="PQ " value="96" /> <referenceRange> <observationRange> <text>70-99</text> </observationRange> </ referenceRange> </observation> </component> <component> <observation moodCode="EVN" classCode="OBS"> <templateId root= "16.840.1.040075.01.28.22.4.2" /> <id nullFlavor="NA" /> < code codeSystem="local" code="CA" displayName="CALCIUM" /> <statusCode code="completed" /> <effectiveTime value="" /> < value unit="mg/dL" xsi:type="PQ" value="8.1" /> <interpretationCode codeSystem="local" code="*" /> <referenceRange> < observationRange> <text>8.5-10.1</text> </ observationRange> </referenceRange> </observation> </ component> <component> <observation moodCode="EVN" classCode="OBS"> <templateId root="05.27.840.1.154412.10..4.2" /> <id nullFlavor="NA" /> <code codeSystem="local" code="BUN" displayName= "BLOOD UREA NITROGEN" /> <statusCode code="completed" /> < effectiveTime value="337690791522" /> <value unit="mg/dL" xsi:type="PQ " value="4" /> <interpretationCode codeSystem="local" code="*" /> <referenceRange> <observationRange> <text>7-20</ text> </observationRange> </referenceRange> </ observation> </component> <component> <observation moodCode= "EVN" classCode="OBS"> <templateId root="05.27.840.1.223660.01.28.22.4.2 " /> <id nullFlavor="NA" /> <code codeSystem="local" code= "CREAT" displayName="CREATININE" /> <statusCode code="completed" /> <effectiveTime value="448455534866" /> <value unit="mg/dL" xsi: type="PQ" value="0.5" /> <interpretationCode codeSystem="local" code="* " /> <referenceRange> <observationRange> <text> 0.6-1.0</text> </observationRange> </referenceRange> </observation> </component> <component> <observation moodCode= "EVN" classCode="OBS"> <templateId root="05.27.840.1.427204....4.2 " /> <id nullFlavor="NA" /> <code codeSystem="local" code="NA " displayName="SODIUM" /> <statusCode code="completed" /> < effectiveTime value="" /> <value unit="mmol/L" xsi:type="PQ " value="138" /> <referenceRange> <observationRange> <text>135-148</text> </observationRange> </ referenceRange> </observation> </component> <component> <observation moodCode="EVN" classCode="OBS"> <templateId root= "216.840.1.295996.10.4.2" /> <id nullFlavor="NA" /> < code codeSystem="local" code="CL" displayName="CHLORIDE" /> < statusCode code="completed" /> <effectiveTime value="" /> <value unit="mmol/L" xsi:type="PQ" value="107" /> < referenceRange> <observationRange> <text>98-110</text> </observationRange> </referenceRange> </observation> </component> <component> <observation moodCode="EVN" classCode ="OBS"> <templateId root="216.840.1.600891.10..4.2" /> < id nullFlavor="NA" /> <code codeSystem="local" code="CO2" displayName= "CARBON DIOXIDE" /> <statusCode code="completed" /> < effectiveTime value="" /> <value unit="mmol/L" xsi:type="PQ " value="25" /> <referenceRange> <observationRange> <text>21-32</text> </observationRange> </ referenceRange> </observation> </component> </organizer> </entry > <entry> <organizer moodCode="EVN" classCode="BATTERY"> <templateId root="2.16.840.1.044411.10...4.1" /> <id nullFlavor="NA" /> <code codeSystem="local" code="CBC" displayName="CBC" /> <statusCode code= "completed" /> <component> <observation moodCode="EVN" classCode= "OBS"> <templateId root="05.27.840.1.647658.10...4.2" /> < id nullFlavor="NA" /> <code codeSystem="local" code="MCH" displayName= "MEAN CELL HGB" /> <statusCode code="completed" /> < effectiveTime value="342279019039" /> <value unit="pg" xsi:type="PQ" value="25.4" /> <interpretationCode codeSystem="local" code="*" /> <referenceRange> <observationRange> <text>27.0- 33.0</text> </observationRange> </referenceRange> </ observation> </component> <component> <observation moodCode= "EVN" classCode="OBS"> <templateId root="05.27.840.1.597353.01.28.224.2 " /> <id nullFlavor="NA" /> <code codeSystem="local" code= "MCHC" displayName="MEAN CELL HGB CONCENTRATION" /> <statusCode code= "completed" /> <effectiveTime value="" /> <value unit="g/dL" xsi:type="PQ" value="30.0" /> <interpretationCode codeSystem="local" code="*" /> <referenceRange> < observationRange> <text>32.0-37.0</text> </ observationRange> </referenceRange> </observation> </ component> <component> <observation moodCode="EVN" classCode="OBS"> <templateId root="05.27.840.1.381585.10.4.2" /> <id nullFlavor="NA" /> <code codeSystem="local" code="MCV" displayName= "MEAN CELL VOLUME" /> <statusCode code="completed" /> < effectiveTime value="" /> <value unit="fl" xsi:type="PQ" value="84.6" /> <referenceRange> <observationRange> <text>80.0-100.0</text> </observationRange> </ referenceRange> </observation> </component> <component> <observation moodCode="EVN" classCode="OBS"> <templateId root= "216.840.1.237678.10..22.4.2" /> <id nullFlavor="NA" /> < code codeSystem="local" code="RBC" displayName="RED BLOOD CELL" /> < statusCode code="completed" /> <effectiveTime value="" /> <value unit="m/cumm" xsi:type="PQ" value="2.72" /> < interpretationCode codeSystem="local" code="*" /> <referenceRange> <observationRange> <text>4.00-6.00</text> </ observationRange> </referenceRange> </observation> </ component> <component> <observation moodCode="EVN" classCode="OBS"> <templateId root="16.840.1.855437.10.22.4.2" /> <id nullFlavor="NA" /> <code codeSystem="local" code="RDW" displayName=" RED CELL DISTRIBUTION WIDTH" /> <statusCode code="completed" /> <effectiveTime value="" /> <value unit="%" xsi:type= "PQ" value="16.4" /> <interpretationCode codeSystem="local" code="*" / > <referenceRange> <observationRange> <text> 11.0-15.6</text> </observationRange> </referenceRange> </observation> </component> <component> <observation moodCode="EVN" classCode="OBS"> <templateId root= "05.27.840.1.915469.102022.4.2" /> <id nullFlavor="NA" /> < code codeSystem="local" code="WBC" displayName="WHITE BLOOD CELL" /> < statusCode code="completed" /> <effectiveTime value="" /> <value unit="k/cumm" xsi:type="PQ" value="3.9" /> < interpretationCode codeSystem="local" code="*" /> <referenceRange> <observationRange> <text>5.0-10.0</text> </ observationRange> </referenceRange> </observation> </ component> <component> <observation moodCode="EVN" classCode="OBS"> <templateId root="05.27.840.1.457266.01.28.22.4.2" /> <id nullFlavor="NA" /> <code codeSystem="local" code="HGBT" displayName= "HEMOGLOBIN" /> <statusCode code="completed" /> < effectiveTime value="236684218744" /> <value unit="gm/dL" xsi:type="PQ " value="6.9" /> <interpretationCode codeSystem="local" code="*" /> <referenceRange> <observationRange> <text>12.0- 16.0</text> </observationRange> </referenceRange> </ observation> </component> <component> <observation moodCode= "EVN" classCode="OBS"> <templateId root="05.27.840.1.146088.10.20.22.4.2 " /> <id nullFlavor="NA" /> <code codeSystem="local" code= "HCTT" displayName="HEMATOCRIT" /> <statusCode code="completed" /> <effectiveTime value="649155667025" /> <value unit="%" xsi: type="PQ" value="23.0" /> <interpretationCode codeSystem="local" code= "*" /> <referenceRange> <observationRange> < text>37.0-47.0</text> </observationRange> </referenceRange> </observation> </component> <component> <observation moodCode="EVN" classCode="OBS"> <templateId root= "16.840.1.389124.01.28.22.4.2" /> <id nullFlavor="NA" /> < code codeSystem="local" code="PLT" displayName="PLATELET COUNT" /> < statusCode code="completed" /> <effectiveTime value="" /> <value unit="k/cumm" xsi:type="PQ" value="349" /> < referenceRange> <observationRange> <text>150-400</text> </observationRange> </referenceRange> </observation > </component> </organizer> </entry> <entry> <organizer moodCode= "EVN" classCode="BATTERY"> <templateId root="05.27.840.1.757411.01.28.22.4.1 " /> <id nullFlavor="NA" /> <code codeSystem="local" code="GLUMON" displayName="GLUCOSE (POC)" /> <statusCode code="completed" /> < component> <observation moodCode="EVN" classCode="OBS"> < templateId root="05.27.840.1.402097.01.28.22.4.2" /> <id nullFlavor="NA " /> <code codeSystem="local" code="GLUMON" displayName="GLUCOSE (POC) " /> <statusCode code="completed" /> <effectiveTime value= "928687151851" /> <value unit="mg/dL" xsi:type="PQ" value="97" /> <referenceRange> <observationRange> <text>70-99</ text> </observationRange> </referenceRange> </ observation> </component> </organizer> </entry> <entry> <organizer moodCode="EVN" classCode="BATTERY"> <templateId root= "216.840.1.653372.10..22.4.1" /> <id nullFlavor="NA" /> <code codeSystem="local" code="GLUMON" displayName="GLUCOSE (POC)" /> < statusCode code="completed" /> <component> <observation moodCode= "EVN" classCode="OBS"> <templateId root="216.840.1.198940.10..22.4.2 " /> <id nullFlavor="NA" /> <code codeSystem="local" code= "GLUMON" displayName="GLUCOSE (POC)" /> <statusCode code="completed" / > <effectiveTime value="111139338131" /> <value unit="mg/dL" xsi:type="PQ" value="106" /> <interpretationCode codeSystem="local" code="*" /> <referenceRange> <observationRange> <text>70-99</text> </observationRange> </referenceRange> </observation> </component> </organizer> </entry> <entry> < organizer moodCode="EVN" classCode="BATTERY"> <templateId root= "216.840.1.570621.10..22.4.1" /> <id nullFlavor="NA" /> <code codeSystem="local" code="ADRIAN" displayName="FERRITIN" /> <statusCode code= "completed" /> <component> <observation moodCode="EVN" classCode= "OBS"> <templateId root="216.840.1.764313.10.20.22.4.2" /> < id nullFlavor="NA" /> <code codeSystem="local" code="ADRIAN" displayName= "FERRITIN" /> <statusCode code="completed" /> <effectiveTime value="356714691206" /> <value unit="ng/mL" xsi:type="PQ" value="124" / > <referenceRange> <observationRange> <text>8- 252</text> </observationRange> </referenceRange> </ observation> </component> </organizer> </entry> <entry> <organizer moodCode="EVN" classCode="BATTERY"> <templateId root= "216.840.1.530584.10.20.22.4.1" /> <id nullFlavor="NA" /> <code codeSystem="local" code="GLUMON" displayName="GLUCOSE (POC)" /> < statusCode code="completed" /> <component> <observation moodCode= "EVN" classCode="OBS"> <templateId root="16.840.1.113531.10.20.22.4.2 " /> <id nullFlavor="NA" /> <code codeSystem="local" code= "GLUMON" displayName="GLUCOSE (POC)" /> <statusCode code="completed" / > <effectiveTime value="880361478563" /> <value unit="mg/dL" xsi:type="PQ" value="93" /> <referenceRange> < observationRange> <text>70-99</text> </observationRange > </referenceRange> </observation> </component> </ organizer> </entry> <entry> <organizer moodCode="EVN" classCode="BATTERY"> <templateId root="05.27.830.1.917005.01.28.22.4.1" /> <id nullFlavor= "NA" /> <code codeSystem="local" code="GLUMON" displayName="GLUCOSE (POC)" /> <statusCode code="completed" /> <component> <observation moodCode="EVN" classCode="OBS"> <templateId root= "840.1.775134.01.28.22.4.2" /> <id nullFlavor="NA" /> < code codeSystem="local" code="GLUMON" displayName="GLUCOSE (POC)" /> < statusCode code="completed" /> <effectiveTime value="524062848056" /> <value unit="mg/dL" xsi:type="PQ" value="105" /> < interpretationCode codeSystem="local" code="*" /> <referenceRange> <observationRange> <text>70-99</text> </ observationRange> </referenceRange> </observation> </ component> </organizer> </entry> <entry> <organizer moodCode="EVN" classCode="BATTERY"> <templateId root="840.1.704595.01.28.22.4.1" /> <id nullFlavor="NA" /> <code codeSystem="local" code="CBC" displayName ="CBC" /> <statusCode code="completed" /> <component> < observation moodCode="EVN" classCode="OBS"> <templateId root= "840.1.165664.01.28.22.4.2" /> <id nullFlavor="NA" /> < code codeSystem="local" code="MCH" displayName="MEAN CELL HGB" /> < statusCode code="completed" /> <effectiveTime value="225020561478" /> <value unit="pg" xsi:type="PQ" value="25.1" /> < interpretationCode codeSystem="local" code="*" /> <referenceRange> <observationRange> <text>27.0-33.0</text> </ observationRange> </referenceRange> </observation> </ component> <component> <observation moodCode="EVN" classCode="OBS"> <templateId root="216.840.1.921684.10.4.2" /> <id nullFlavor="NA" /> <code codeSystem="local" code="MCHC" displayName= "MEAN CELL HGB CONCENTRATION" /> <statusCode code="completed" /> <effectiveTime value="272742929056" /> <value unit="g/dL" xsi:type= "PQ" value="30.4" /> <interpretationCode codeSystem="local" code="*" / > <referenceRange> <observationRange> <text> 32.0-37.0</text> </observationRange> </referenceRange> </observation> </component> <component> <observation moodCode="EVN" classCode="OBS"> <templateId root= "05.27.840.1.941332.01.28.22.4.2" /> <id nullFlavor="NA" /> < code codeSystem="local" code="MCV" displayName="MEAN CELL VOLUME" /> < statusCode code="completed" /> <effectiveTime value="240379897766" /> <value unit="fl" xsi:type="PQ" value="82.6" /> <referenceRange > <observationRange> <text>80.0-100.0</text> </observationRange> </referenceRange> </observation> </ component> <component> <observation moodCode="EVN" classCode="OBS"> <templateId root="216.840.1.781191.01.28.22.4.2" /> <id nullFlavor="NA" /> <code codeSystem="local" code="RBC" displayName=" RED BLOOD CELL" /> <statusCode code="completed" /> < effectiveTime value="" /> <value unit="m/cumm" xsi:type="PQ " value="3.11" /> <interpretationCode codeSystem="local" code="*" /> <referenceRange> <observationRange> <text>4.00- 6.00</text> </observationRange> </referenceRange> </ observation> </component> <component> <observation moodCode= "EVN" classCode="OBS"> <templateId root="216.840.1.291926.01.28.224.2 " /> <id nullFlavor="NA" /> <code codeSystem="local" code="RDW " displayName="RED CELL DISTRIBUTION WIDTH" /> <statusCode code= "completed" /> <effectiveTime value="" /> <value unit="%" xsi:type="PQ" value="15.9" /> <interpretationCode codeSystem="local" code="*" /> <referenceRange> < observationRange> <text>11.0-15.6</text> </ observationRange> </referenceRange> </observation> </ component> <component> <observation moodCode="EVN" classCode="OBS"> <templateId root="16.840.1.749049.10.4.2" /> <id nullFlavor="NA" /> <code codeSystem="local" code="WBC" displayName= "WHITE BLOOD CELL" /> <statusCode code="completed" /> < effectiveTime value="" /> <value unit="k/cumm" xsi:type="PQ " value="5.3" /> <referenceRange> <observationRange> <text>5.0-10.0</text> </observationRange> </ referenceRange> </observation> </component> <component> <observation moodCode="EVN" classCode="OBS"> <templateId root= "16.840.1.840821.10.20.22.4.2" /> <id nullFlavor="NA" /> < code codeSystem="local" code="HGBT" displayName="HEMOGLOBIN" /> < statusCode code="completed" /> <effectiveTime value="222706789985" /> <value unit="gm/dL" xsi:type="PQ" value="7.8" /> < interpretationCode codeSystem="local" code="*" /> <referenceRange> <observationRange> <text>12.0-16.0</text> </ observationRange> </referenceRange> </observation> </ component> <component> <observation moodCode="EVN" classCode="OBS"> <templateId root="05.27.840.1.887836.10.20.22.4.2" /> <id nullFlavor="NA" /> <code codeSystem="local" code="HCTT" displayName= "HEMATOCRIT" /> <statusCode code="completed" /> < effectiveTime value="" /> <value unit="%" xsi:type="PQ " value="25.7" /> <interpretationCode codeSystem="local" code="*" /> <referenceRange> <observationRange> <text>37.0- 47.0</text> </observationRange> </referenceRange> </ observation> </component> <component> <observation moodCode= "EVN" classCode="OBS"> <templateId root="05.27.840.1.003092.10.20.22.4.2 " /> <id nullFlavor="NA" /> <code codeSystem="local" code="PLT " displayName="PLATELET COUNT" /> <statusCode code="completed" /> <effectiveTime value="972291530449" /> <value unit="k/cumm" xsi: type="PQ" value="372" /> <referenceRange> <observationRange > <text>150-400</text> </observationRange> </ referenceRange> </observation> </component> </organizer> </entry > <entry> <organizer moodCode="EVN" classCode="BATTERY"> <templateId root="216.840.1.076149.10..22.4.1" /> <id nullFlavor="NA" /> <code codeSystem="local" code="GLUMON" displayName="GLUCOSE (POC)" /> < statusCode code="completed" /> <component> <observation moodCode= "EVN" classCode="OBS"> <templateId root="216.840.1.725184.10..22.4.2 " /> <id nullFlavor="NA" /> <code codeSystem="local" code= "GLUMON" displayName="GLUCOSE (POC)" /> <statusCode code="completed" / > <effectiveTime value="111091617802" /> <value unit="mg/dL" xsi:type="PQ" value="94" /> <referenceRange> < observationRange> <text>70-99</text> </observationRange > </referenceRange> </observation> </component> </ organizer> </entry> <entry> <organizer moodCode="EVN" classCode="BATTERY"> <templateId root="216.840.1.052266.10..22.4.1" /> <id nullFlavor= "NA" /> <code codeSystem="local" code="GLUMON" displayName="GLUCOSE (POC)" /> <statusCode code="completed" /> <component> <observation moodCode="EVN" classCode="OBS"> <templateId root= "2.16.840.1.385616.10.20.22.4.2" /> <id nullFlavor="NA" /> < code codeSystem="local" code="GLUMON" displayName="GLUCOSE (POC)" /> < statusCode code="completed" /> <effectiveTime value="758099842033" /> <value unit="mg/dL" xsi:type="PQ" value="95" /> < referenceRange> <observationRange> <text>70-99</text> </observationRange> </referenceRange> </observation> </component> </organizer> </entry> <entry> <organizer moodCode="EVN " classCode="BATTERY"> <templateId root="2.16.840.1.781170.10.20.22.4.1" / > <id nullFlavor="NA" /> <code codeSystem="local" code="GLUMON" displayName="GLUCOSE (POC)" /> <statusCode code="completed" /> < component> <observation moodCode="EVN" classCode="OBS"> < templateId root="2.16.840.1.939600.10.20.22.4.2" /> <id nullFlavor="NA " /> <code codeSystem="local" code="GLUMON" displayName="GLUCOSE (POC) " /> <statusCode code="completed" /> <effectiveTime value= "999262942205" /> <value unit="mg/dL" xsi:type="PQ" value="94" /> <referenceRange> <observationRange> <text>70-99</ text> </observationRange> </referenceRange> </ observation> </component> </organizer> </entry> <entry> <organizer moodCode="EVN" classCode="BATTERY"> <templateId root= "840.1.277200.10..22.4.1" /> <id nullFlavor="NA" /> <code codeSystem="local" code="GLUMON" displayName="GLUCOSE (POC)" /> < statusCode code="completed" /> <component> <observation moodCode= "EVN" classCode="OBS"> <templateId root="840.1.858980.01.28.22.4.2 " /> <id nullFlavor="NA" /> <code codeSystem="local" code= "GLUMON" displayName="GLUCOSE (POC)" /> <statusCode code="completed" / > <effectiveTime value="373498388205" /> <value unit="mg/dL" xsi:type="PQ" value="115" /> <interpretationCode codeSystem="local" code="*" /> <referenceRange> <observationRange> <text>70-99</text> </observationRange> </referenceRange> </observation> </component> </organizer> </entry> <entry> < organizer moodCode="EVN" classCode="BATTERY"> <templateId root= "840.1.938142.01.28.22.4.1" /> <id nullFlavor="NA" /> <code codeSystem="local" code="GLUMON" displayName="GLUCOSE (POC)" /> < statusCode code="completed" /> <component> <observation moodCode= "EVN" classCode="OBS"> <templateId root="840.1.757106.01.28.22.4.2 " /> <id nullFlavor="NA" /> <code codeSystem="local" code= "GLUMON" displayName="GLUCOSE (POC)" /> <statusCode code="completed" / > <effectiveTime value="170886878552" /> <value unit="mg/dL" xsi:type="PQ" value="106" /> <interpretationCode codeSystem="local" code="*" /> <referenceRange> <observationRange> <text>70-99</text> </observationRange> </referenceRange> </observation> </component> </organizer> </entry> <entry> < organizer moodCode="EVN" classCode="BATTERY"> <templateId root= "216.840.1.297958.10..22.4.1" /> <id nullFlavor="NA" /> <code codeSystem="local" code="GLUMON" displayName="GLUCOSE (POC)" /> < statusCode code="completed" /> <component> <observation moodCode= "EVN" classCode="OBS"> <templateId root="2.16.840.1.034090.10..22.4.2 " /> <id nullFlavor="NA" /> <code codeSystem="local" code= "GLUMON" displayName="GLUCOSE (POC)" /> <statusCode code="completed" / > <effectiveTime value="813506658522" /> <value unit="mg/dL" xsi:type="PQ" value="101" /> <interpretationCode codeSystem="local" code="*" /> <referenceRange> <observationRange> <text>70-99</text> </observationRange> </referenceRange> </observation> </component> </organizer> </entry> <entry> < organizer moodCode="EVN" classCode="BATTERY"> <templateId root= "2.16.840.1.088226.10..22.4.1" /> <id nullFlavor="NA" /> <code codeSystem="local" code="GLUMON" displayName="GLUCOSE (POC)" /> < statusCode code="completed" /> <component> <observation moodCode= "EVN" classCode="OBS"> <templateId root="2.16.840.1.573897.10..22.4.2 " /> <id nullFlavor="NA" /> <code codeSystem="local" code= "GLUMON" displayName="GLUCOSE (POC)" /> <statusCode code="completed" / > <effectiveTime value="" /> <value unit="mg/dL" xsi:type="PQ" value="105" /> <interpretationCode codeSystem="local" code="*" /> <referenceRange> <observationRange> <text>70-99</text> </observationRange> </referenceRange> </observation> </component> </organizer> </entry> <entry> < organizer moodCode="EVN" classCode="BATTERY"> <templateId root= "2.16.840.1.891957.10..22.4.1" /> <id nullFlavor="NA" /> <code codeSystem="local" code="GLUMON" displayName="GLUCOSE (POC)" /> < statusCode code="completed" /> <component> <observation moodCode= "EVN" classCode="OBS"> <templateId root="2.16.840.1.061924.10.20.22.4.2 " /> <id nullFlavor="NA" /> <code codeSystem="local" code= "GLUMON" displayName="GLUCOSE (POC)" /> <statusCode code="completed" / > <effectiveTime value="211467824742" /> <value unit="mg/dL" xsi:type="PQ" value="111" /> <interpretationCode codeSystem="local" code="*" /> <referenceRange> <observationRange> <text>70-99</text> </observationRange> </referenceRange> </observation> </component> </organizer> </entry> <entry> < organizer moodCode="EVN" classCode="BATTERY"> <templateId root= "840.1.082678.01.28.22.4.1" /> <id nullFlavor="NA" /> <code codeSystem="local" code="GLUMON" displayName="GLUCOSE (POC)" /> < statusCode code="completed" /> <component> <observation moodCode= "EVN" classCode="OBS"> <templateId root="840.1.303583.01.28.22.4.2 " /> <id nullFlavor="NA" /> <code codeSystem="local" code= "GLUMON" displayName="GLUCOSE (POC)" /> <statusCode code="completed" / > <effectiveTime value="617894911926" /> <value unit="mg/dL" xsi:type="PQ" value="105" /> <interpretationCode codeSystem="local" code="*" /> <referenceRange> <observationRange> <text>70-99</text> </observationRange> </referenceRange> </observation> </component> </organizer> </entry> <entry> < organizer moodCode="EVN" classCode="BATTERY"> <templateId root= "840.1.416680.01.28.22.4.1" /> <id nullFlavor="NA" /> <code codeSystem="local" code="MRSAS" displayName="MRSA SURVEILLANCE SCREEN" /> < statusCode code="completed" /> <component> <observation moodCode= "EVN" classCode="OBS"> <templateId root="840.1.984240.01.28.22.4.2 " /> <id nullFlavor="NA" /> <code codeSystem="local" code="MB " displayName="Microbiology" /> <statusCode code="completed" /> <effectiveTime value="[id number]" /> <value xsi:type="ST" value="< pre><b>MRSA SURVEILLANCE SCREEN</b> See BelowMRSA SURVEILLANCE SCREEN(F) Sanam Date/Time: 04/21/2015 06:45 Crow Date/Time: 04/22/2015 06:54SOURCE: ANTERIOR NARESSPEC DESC: NNO METHICILLIN [facility] [place] [address]</pre> " /> <referenceRange> <observationRange> <text /> </observationRange> </referenceRange> </ observation> </component> </organizer> </entry> <entry> <organizer moodCode="EVN" classCode="BATTERY"> <templateId root= "2.16.840.1.324377.10.20.22.4.1" /> <id nullFlavor="NA" /> <code codeSystem="local" code="GLUMON" displayName="GLUCOSE (POC)" /> < statusCode code="completed" /> <component> <observation moodCode= "EVN" classCode="OBS"> <templateId root="2.16.840.1.176159.10.20.22.4.2 " /> <id nullFlavor="NA" /> <code codeSystem="local" code= "GLUMON" displayName="GLUCOSE (POC)" /> <statusCode code="completed" / > <effectiveTime value="728600166303" /> <value unit="mg/dL" xsi:type="PQ" value="104" /> <interpretationCode codeSystem="local" code="*" /> <referenceRange> <observationRange> <text>70-99</text> </observationRange> </referenceRange> </observation> </component> </organizer> </entry> <entry> < organizer moodCode="EVN" classCode="BATTERY"> <templateId root= "840.1.434441.10..22.4.1" /> <id nullFlavor="NA" /> <code codeSystem="local" code="GLUMON" displayName="GLUCOSE (POC)" /> < statusCode code="completed" /> <component> <observation moodCode= "EVN" classCode="OBS"> <templateId root="840.1.763821.01.28.22.4.2 " /> <id nullFlavor="NA" /> <code codeSystem="local" code= "GLUMON" displayName="GLUCOSE (POC)" /> <statusCode code="completed" / > <effectiveTime value="465818305903" /> <value unit="mg/dL" xsi:type="PQ" value="99" /> <referenceRange> < observationRange> <text>70-99</text> </observationRange > </referenceRange> </observation> </component> </ organizer> </entry> <entry> <organizer moodCode="EVN" classCode="BATTERY"> <templateId root="840.1.387915.01.28.22.4.1" /> <id nullFlavor= "NA" /> <code codeSystem="local" code="GLUMON" displayName="GLUCOSE (POC)" /> <statusCode code="completed" /> <component> <observation moodCode="EVN" classCode="OBS"> <templateId root= "05.27.840.1.399598.10..4.2" /> <id nullFlavor="NA" /> < code codeSystem="local" code="GLUMON" displayName="GLUCOSE (POC)" /> < statusCode code="completed" /> <effectiveTime value="965776738619" /> <value unit="mg/dL" xsi:type="PQ" value="107" /> < interpretationCode codeSystem="local" code="*" /> <referenceRange> <observationRange> <text>70-99</text> </ observationRange> </referenceRange> </observation> </ component> </organizer> </entry> <entry> <organizer moodCode="EVN" classCode="BATTERY"> <templateId root="2.16.840.1.222894.10.20.22.4.1" /> <id nullFlavor="NA" /> <code codeSystem="local" code="45306-1" displayName="Complete blood count (CBC) with automated white blood cell (WBC) differential" /> <statusCode code="completed" /> <component> < observation moodCode="EVN" classCode="OBS"> <templateId root= "2.16.840.1.898875.10.20.22.4.2" /> <id nullFlavor="NA" /> < code codeSystem="local" code="6690-2" displayName="Blood leukocytes automated count (number/volume)" /> <statusCode code="completed" /> < effectiveTime value="860470497318" /> <value unit="10*3/uL" xsi:type= "PQ" value="10.8" /> <referenceRange> <observationRange> <text>4.3-11.0</text> </observationRange> </ referenceRange> </observation> </component> <component> <observation moodCode="EVN" classCode="OBS"> <templateId root= "216.840.1.329211.10.20.22.4.2" /> <id nullFlavor="NA" /> < code codeSystem="local" code="789-8" displayName="Blood erythrocytes automated count (number/volume)" /> <statusCode code="completed" /> < effectiveTime value="340618381693" /> <value unit="10*6/uL" xsi:type= "PQ" value="4.88" /> <referenceRange> <observationRange> <text>4.35-5.85</text> </observationRange> </ referenceRange> </observation> </component> <component> <observation moodCode="EVN" classCode="OBS"> <templateId root= "2.16.840.1.856334.10..22.4.2" /> <id nullFlavor="NA" /> < code codeSystem="local" code="10561-4" displayName="Venous blood hemoglobin measurement (mass/volume)" /> <statusCode code="completed" /> <effectiveTime value="946430867008" /> <value unit="g/dL" xsi:type="PQ " value="11.3" /> <interpretationCode codeSystem="local" code="" /> <referenceRange> <observationRange> <text>11.5- 16.0</text> </observationRange> </referenceRange> </ observation> </component> <component> <observation moodCode= "EVN" classCode="OBS"> <templateId root="216.840.1.164245.10...4.2 " /> <id nullFlavor="NA" /> <code codeSystem="local" code= "77106-7" displayName="Blood hematocrit (volume fraction)" /> < statusCode code="completed" /> <effectiveTime value="599440796662" /> <value unit="%" xsi:type="PQ" value="36" /> < referenceRange> <observationRange> <text>35-52</text> </observationRange> </referenceRange> </observation> </component> <component> <observation moodCode="EVN" classCode= "OBS"> <templateId root="216.840.1.859952.01.28.22.4.2" /> < id nullFlavor="NA" /> <code codeSystem="local" code="787-2" displayName ="Automated erythrocyte mean corpuscular volume" /> <statusCode code= "completed" /> <effectiveTime value="943953235757" /> <value unit="[foz_us]" xsi:type="PQ" value="74" /> <interpretationCode codeSystem="local" code="" /> <referenceRange> < observationRange> <text>80-99</text> </observationRange > </referenceRange> </observation> </component> < component> <observation moodCode="EVN" classCode="OBS"> < templateId root="2.16.840.1.018965.10.4.2" /> <id nullFlavor="NA " /> <code codeSystem="local" code="785-6" displayName="Automated erythrocyte mean corpuscular hemoglobin (mass per erythrocyte)" /> < statusCode code="completed" /> <effectiveTime value="694310306362" /> <value unit="pg" xsi:type="PQ" value="23" /> < interpretationCode codeSystem="local" code="" /> <referenceRange> <observationRange> <text>25-34</text> </ observationRange> </referenceRange> </observation> </ component> <component> <observation moodCode="EVN" classCode="OBS"> <templateId root="216.840.1.583387.10...4.2" /> <id nullFlavor="NA" /> <code codeSystem="local" code="786-4" displayName= "Automated erythrocyte mean corpuscular hemoglobin concentration measurement ( mass/volume)" /> <statusCode code="completed" /> < effectiveTime value="815241289994" /> <value unit="g/dL" xsi:type="PQ" value="31" /> <interpretationCode codeSystem="local" code="" /> <referenceRange> <observationRange> <text>32-36</ text> </observationRange> </referenceRange> </ observation> </component> <component> <observation moodCode= "EVN" classCode="OBS"> <templateId root="2.16.840.1.617825.10.20.22.4.2 " /> <id nullFlavor="NA" /> <code codeSystem="local" code="788 -0" displayName="Automated erythrocyte distribution width ratio" /> < statusCode code="completed" /> <effectiveTime value="735551992620" /> <value unit="%" xsi:type="PQ" value="18.2" /> < interpretationCode codeSystem="local" code="" /> <referenceRange> <observationRange> <text>10.0-14.5</text> </ observationRange> </referenceRange> </observation> </ component> <component> <observation moodCode="EVN" classCode="OBS"> <templateId root="2.16.840.1.022337.10.20.22.4.2" /> <id nullFlavor="NA" /> <code codeSystem="local" code="777-3" displayName= "Automated blood platelet count (count/volume)" /> <statusCode code= "completed" /> <effectiveTime value="466257933905" /> <value unit="10*3/uL" xsi:type="PQ" value="459" /> <interpretationCode codeSystem="local" code="" /> <referenceRange> < observationRange> <text>130-400</text> </ observationRange> </referenceRange> </observation> </ component> <component> <observation moodCode="EVN" classCode="OBS"> <templateId root="2.16.840.1.952419.10.20.22.4.2" /> <id nullFlavor="NA" /> <code codeSystem="local" code="49715-5" displayName= "Automated blood platelet mean volume measurement" /> <statusCode code= "completed" /> <effectiveTime value="973625648911" /> <value unit="[chi [facility]]" xsi:type="PQ" value="9.7" /> <referenceRange> <observationRange> <text>7.4-10.4</text> </ observationRange> </referenceRange> </observation> </ component> <component> <observation moodCode="EVN" classCode="OBS"> <templateId root="216.840.1.426987.10..22.4.2" /> <id nullFlavor="NA" /> <code codeSystem="local" code="770-8" displayName= "Automated blood neutrophils/100 leukocytes" /> <statusCode code= "completed" /> <effectiveTime value="679107245650" /> <value unit="%" xsi:type="PQ" value="55" /> <referenceRange> < observationRange> <text>42-75</text> </observationRange > </referenceRange> </observation> </component> < component> <observation moodCode="EVN" classCode="OBS"> < templateId root="216.840.1.748033.10.20.22.4.2" /> <id nullFlavor="NA " /> <code codeSystem="local" code="736-9" displayName="Automated blood lymphocytes/100 leukocytes" /> <statusCode code="completed" /> <effectiveTime value="146074141186" /> <value unit="%" xsi: type="PQ" value="37" /> <referenceRange> <observationRange> <text>12-44</text> </observationRange> </ referenceRange> </observation> </component> <component> <observation moodCode="EVN" classCode="OBS"> <templateId root= "2.16.840.1.794443.10.20.22.4.2" /> <id nullFlavor="NA" /> < code codeSystem="local" code="46406-5" displayName="Blood monocytes/100 leukocytes" /> <statusCode code="completed" /> <effectiveTime value="844547313366" /> <value unit="%" xsi:type="PQ" value="6" /> <referenceRange> <observationRange> <text>0-12 </text> </observationRange> </referenceRange> </ observation> </component> <component> <observation moodCode= "EVN" classCode="OBS"> <templateId root="216.840.1.468480.10.20.22.4.2 " /> <id nullFlavor="NA" /> <code codeSystem="local" code="713 -8" displayName="Automated blood eosinophils/100 leukocytes" /> < statusCode code="completed" /> <effectiveTime value="577887987709" /> <value unit="%" xsi:type="PQ" value="2" /> <referenceRange > <observationRange> <text>0-10</text> </ observationRange> </referenceRange> </observation> </ component> <component> <observation moodCode="EVN" classCode="OBS"> <templateId root="216.840.1.003031.10.20.22.4.2" /> <id nullFlavor="NA" /> <code codeSystem="local" code="706-2" displayName= "Automated blood basophils/100 leukocytes" /> <statusCode code= "completed" /> <effectiveTime value="585360060820" /> <value unit="%" xsi:type="PQ" value="0" /> <referenceRange> < observationRange> <text>0-10</text> </observationRange> </referenceRange> </observation> </component> < component> <observation moodCode="EVN" classCode="OBS"> < templateId root="16.840.1.586532.10.20.22.4.2" /> <id nullFlavor="NA " /> <code codeSystem="local" code="751-8" displayName="Blood neutrophils automated count (number/volume)" /> <statusCode code= "completed" /> <effectiveTime value="492275187679" /> <value unit="10*3" xsi:type="PQ" value="5.9" /> <referenceRange> < observationRange> <text>1.8-7.8</text> </ observationRange> </referenceRange> </observation> </ component> <component> <observation moodCode="EVN" classCode="OBS"> <templateId root="05.27.840.1.618015.10.20.22.4.2" /> <id nullFlavor="NA" /> <code codeSystem="local" code="731-0" displayName= "Blood lymphocytes automated count (number/volume)" /> <statusCode code ="completed" /> <effectiveTime value="622681309409" /> <value unit="10*3" xsi:type="PQ" value="4.0" /> <referenceRange> < observationRange> <text>1.0-4.0</text> </ observationRange> </referenceRange> </observation> </ component> <component> <observation moodCode="EVN" classCode="OBS"> <templateId root="840.1.603576.10.20.22.4.2" /> <id nullFlavor="NA" /> <code codeSystem="local" code="742-7" displayName= "Blood monocytes automated count (number/volume)" /> <statusCode code= "completed" /> <effectiveTime value="956759203933" /> <value unit="10*3" xsi:type="PQ" value="0.6" /> <referenceRange> < observationRange> <text>0.0-1.0</text> </ observationRange> </referenceRange> </observation> </ component> <component> <observation moodCode="EVN" classCode="OBS"> <templateId root="16.840.1.728147.10..22.4.2" /> <id nullFlavor="NA" /> <code codeSystem="local" code="711-2" displayName= "Automated eosinophil count" /> <statusCode code="completed" /> <effectiveTime value="845340307864" /> <value unit="10*3/uL" xsi: type="PQ" value="0.2" /> <referenceRange> <observationRange > <text>0.0-0.3</text> </observationRange> </ referenceRange> </observation> </component> <component> <observation moodCode="EVN" classCode="OBS"> <templateId root= "16.840.1.759616.10.20.22.4.2" /> <id nullFlavor="NA" /> < code codeSystem="local" code="704-7" displayName="Automated blood basophil count (count/volume)" /> <statusCode code="completed" /> < effectiveTime value="155360448143" /> <value unit="10*3/uL" xsi:type= "PQ" value="0.0" /> <referenceRange> <observationRange> <text>0.0-0.1</text> </observationRange> </ referenceRange> </observation> </component> </organizer> </entry > <entry> <organizer moodCode="EVN" classCode="BATTERY"> <templateId root="2.16.840.1.952345.10.20.22.4.1" /> <id nullFlavor="NA" /> <code codeSystem="local" code="30761-0" displayName="Complete blood count (CBC) with automated white blood cell (WBC) differential" /> <statusCode code= "completed" /> <component> <observation moodCode="EVN" classCode= "OBS"> <templateId root="2.16.840.1.462100.10.20.22.4.2" /> < id nullFlavor="NA" /> <code codeSystem="local" code="6690-2" displayName="Blood leukocytes automated count (number/volume)" /> < statusCode code="completed" /> <effectiveTime value="" /> <value unit="10*3/uL" xsi:type="PQ" value="9.4" /> < referenceRange> <observationRange> <text>4.3-11.0</text > </observationRange> </referenceRange> </observation > </component> <component> <observation moodCode="EVN" classCode="OBS"> <templateId root="16.840.1.336606.10.20.22.4.2" /> <id nullFlavor="NA" /> <code codeSystem="local" code="789-8" displayName="Blood erythrocytes automated count (number/volume)" /> < statusCode code="completed" /> <effectiveTime value="681828077745" /> <value unit="10*6/uL" xsi:type="PQ" value="5.00" /> < referenceRange> <observationRange> <text>4.35-5.85</text > </observationRange> </referenceRange> </observation > </component> <component> <observation moodCode="EVN" classCode="OBS"> <templateId root="2.16.840.1.333677.10.20.22.4.2" /> <id nullFlavor="NA" /> <code codeSystem="local" code="69248-1 " displayName="Venous blood hemoglobin measurement (mass/volume)" /> < statusCode code="completed" /> <effectiveTime value="591213119385" /> <value unit="g/dL" xsi:type="PQ" value="11.7" /> < referenceRange> <observationRange> <text>11.5-16.0</text > </observationRange> </referenceRange> </observation > </component> <component> <observation moodCode="EVN" classCode="OBS"> <templateId root="216.840.1.109029.10.20.22.4.2" /> <id nullFlavor="NA" /> <code codeSystem="local" code="82308-1 " displayName="Blood hematocrit (volume fraction)" /> <statusCode code= "completed" /> <effectiveTime value="404373407269" /> <value unit="%" xsi:type="PQ" value="38" /> <referenceRange> < observationRange> <text>35-52</text> </observationRange > </referenceRange> </observation> </component> < component> <observation moodCode="EVN" classCode="OBS"> < templateId root="2.16.840.1.837045.10.20.22.4.2" /> <id nullFlavor="NA " /> <code codeSystem="local" code="787-2" displayName="Automated erythrocyte mean corpuscular volume" /> <statusCode code="completed" / > <effectiveTime value="" /> <value unit="[foz_us] " xsi:type="PQ" value="75" /> <interpretationCode codeSystem="local" code="" /> <referenceRange> <observationRange> <text>80-99</text> </observationRange> </referenceRange> </observation> </component> <component> <observation moodCode="EVN" classCode="OBS"> <templateId root= "2.16.840.1.325887.10.20.22.4.2" /> <id nullFlavor="NA" /> < code codeSystem="local" code="785-6" displayName="Automated erythrocyte mean corpuscular hemoglobin (mass per erythrocyte)" /> <statusCode code= "completed" /> <effectiveTime value="" /> <value unit="pg" xsi:type="PQ" value="23" /> <interpretationCode codeSystem= "local" code="" /> <referenceRange> <observationRange> <text>25-34</text> </observationRange> </ referenceRange> </observation> </component> <component> <observation moodCode="EVN" classCode="OBS"> <templateId root= "2.16.840.1.600531.10..22.4.2" /> <id nullFlavor="NA" /> < code codeSystem="local" code="786-4" displayName="Automated erythrocyte mean corpuscular hemoglobin concentration measurement (mass/volume)" /> < statusCode code="completed" /> <effectiveTime value="" /> <value unit="g/dL" xsi:type="PQ" value="31" /> < interpretationCode codeSystem="local" code="" /> <referenceRange> <observationRange> <text>32-36</text> </ observationRange> </referenceRange> </observation> </ component> <component> <observation moodCode="EVN" classCode="OBS"> <templateId root="2.16.840.1.193197.10.20.22.4.2" /> <id nullFlavor="NA" /> <code codeSystem="local" code="788-0" displayName= "Automated erythrocyte distribution width ratio" /> <statusCode code= "completed" /> <effectiveTime value="703833178810" /> <value unit="%" xsi:type="PQ" value="18.3" /> <interpretationCode codeSystem="local" code="" /> <referenceRange> < observationRange> <text>10.0-14.5</text> </ observationRange> </referenceRange> </observation> </ component> <component> <observation moodCode="EVN" classCode="OBS"> <templateId root="16.840.1.282150.10...4.2" /> <id nullFlavor="NA" /> <code codeSystem="local" code="777-3" displayName= "Automated blood platelet count (count/volume)" /> <statusCode code= "completed" /> <effectiveTime value="230293296605" /> <value unit="10*3/uL" xsi:type="PQ" value="554" /> <interpretationCode codeSystem="local" code="" /> <referenceRange> < observationRange> <text>130-400</text> </ observationRange> </referenceRange> </observation> </ component> <component> <observation moodCode="EVN" classCode="OBS"> <templateId root="216.840.1.961386.01.28.22.4.2" /> <id nullFlavor="NA" /> <code codeSystem="local" code="10926-5" displayName= "Automated blood platelet mean volume measurement" /> <statusCode code= "completed" /> <effectiveTime value="" /> <value unit="[chi [facility]]" xsi:type="PQ" value="9.7" /> <referenceRange> <observationRange> <text>7.4-10.4</text> </ observationRange> </referenceRange> </observation> </ component> <component> <observation moodCode="EVN" classCode="OBS"> <templateId root="2.16.840.1.800346.01.28.22.4.2" /> <id nullFlavor="NA" /> <code codeSystem="local" code="770-8" displayName= "Automated blood neutrophils/100 leukocytes" /> <statusCode code= "completed" /> <effectiveTime value="" /> <value unit="%" xsi:type="PQ" value="60" /> <referenceRange> < observationRange> <text>42-75</text> </observationRange > </referenceRange> </observation> </component> < component> <observation moodCode="EVN" classCode="OBS"> < templateId root="2.16.840.1.074689.10.22.4.2" /> <id nullFlavor="NA " /> <code codeSystem="local" code="736-9" displayName="Automated blood lymphocytes/100 leukocytes" /> <statusCode code="completed" /> <effectiveTime value="" /> <value unit="%" xsi: type="PQ" value="32" /> <referenceRange> <observationRange> <text>12-44</text> </observationRange> </ referenceRange> </observation> </component> <component> <observation moodCode="EVN" classCode="OBS"> <templateId root= "2.16.840.1.814846.10.20.22.4.2" /> <id nullFlavor="NA" /> < code codeSystem="local" code="04387-3" displayName="Blood monocytes/100 leukocytes" /> <statusCode code="completed" /> <effectiveTime value="" /> <value unit="%" xsi:type="PQ" value="5" /> <referenceRange> <observationRange> <text>0-12 </text> </observationRange> </referenceRange> </ observation> </component> <component> <observation moodCode= "EVN" classCode="OBS"> <templateId root="2.16.840.1.023780.10..22.4.2 " /> <id nullFlavor="NA" /> <code codeSystem="local" code="713 -8" displayName="Automated blood eosinophils/100 leukocytes" /> < statusCode code="completed" /> <effectiveTime value="" /> <value unit="%" xsi:type="PQ" value="2" /> <referenceRange > <observationRange> <text>0-10</text> </ observationRange> </referenceRange> </observation> </ component> <component> <observation moodCode="EVN" classCode="OBS"> <templateId root="2.16.840.1.994960.10.20.22.4.2" /> <id nullFlavor="NA" /> <code codeSystem="local" code="706-2" displayName= "Automated blood basophils/100 leukocytes" /> <statusCode code= "completed" /> <effectiveTime value="" /> <value unit="%" xsi:type="PQ" value="0" /> <referenceRange> < observationRange> <text>0-10</text> </observationRange> </referenceRange> </observation> </component> < component> <observation moodCode="EVN" classCode="OBS"> < templateId root="2.16.840.1.774412.10.20.22.4.2" /> <id nullFlavor="NA " /> <code codeSystem="local" code="751-8" displayName="Blood neutrophils automated count (number/volume)" /> <statusCode code= "completed" /> <effectiveTime value="423930026792" /> <value unit="10*3" xsi:type="PQ" value="4.9" /> <referenceRange> < observationRange> <text>1.8-7.8</text> </ observationRange> </referenceRange> </observation> </ component> <component> <observation moodCode="EVN" classCode="OBS"> <templateId root="16.840.1.070094.10..22.4.2" /> <id nullFlavor="NA" /> <code codeSystem="local" code="731-0" displayName= "Blood lymphocytes automated count (number/volume)" /> <statusCode code ="completed" /> <effectiveTime value="635991329766" /> <value unit="10*3" xsi:type="PQ" value="2.6" /> <referenceRange> < observationRange> <text>1.0-4.0</text> </ observationRange> </referenceRange> </observation> </ component> <component> <observation moodCode="EVN" classCode="OBS"> <templateId root="216.840.1.914416.10.20.22.4.2" /> <id nullFlavor="NA" /> <code codeSystem="local" code="742-7" displayName= "Blood monocytes automated count (number/volume)" /> <statusCode code= "completed" /> <effectiveTime value="" /> <value unit="10*3" xsi:type="PQ" value="0.4" /> <referenceRange> < observationRange> <text>0.0-1.0</text> </ observationRange> </referenceRange> </observation> </ component> <component> <observation moodCode="EVN" classCode="OBS"> <templateId root="2.16.840.1.153260.10..22.4.2" /> <id nullFlavor="NA" /> <code codeSystem="local" code="711-2" displayName= "Automated eosinophil count" /> <statusCode code="completed" /> <effectiveTime value="" /> <value unit="10*3/uL" xsi: type="PQ" value="0.2" /> <referenceRange> <observationRange > <text>0.0-0.3</text> </observationRange> </ referenceRange> </observation> </component> <component> <observation moodCode="EVN" classCode="OBS"> <templateId root= "2.16.840.1.491638.10..22.4.2" /> <id nullFlavor="NA" /> < code codeSystem="local" code="704-7" displayName="Automated blood basophil count (count/volume)" /> <statusCode code="completed" /> < effectiveTime value="" /> <value unit="10*3/uL" xsi:type= "PQ" value="0.0" /> <referenceRange> <observationRange> <text>0.0-0.1</text> </observationRange> </ referenceRange> </observation> </component> </organizer> </entry > <entry> <organizer moodCode="EVN" classCode="BATTERY"> <templateId root="2.16.840.1.627942.10..22.4.1" /> <id nullFlavor="NA" /> <code codeSystem="local" code="09693-1" displayName="Comprehensive metabolic panel" / > <statusCode code="completed" /> <component> <observation moodCode="EVN" classCode="OBS"> <templateId root= "2.16.840.1.053789.10..22.4.2" /> <id nullFlavor="NA" /> < code codeSystem="local" code="2951-2" displayName="Serum or plasma sodium measurement (moles/volume)" /> <statusCode code="completed" /> <effectiveTime value="" /> <value unit="mmol/L" xsi:type= "PQ" value="137" /> <referenceRange> <observationRange> <text>135-145</text> </observationRange> </ referenceRange> </observation> </component> <component> <observation moodCode="EVN" classCode="OBS"> <templateId root= "2.16.840.1.386587.10..22.4.2" /> <id nullFlavor="NA" /> < code codeSystem="local" code="2823-3" displayName="Serum or plasma potassium measurement (moles/volume)" /> <statusCode code="completed" /> <effectiveTime value="" /> <value unit="mmol/L" xsi:type= "PQ" value="4.4" /> <referenceRange> <observationRange> <text>3.6-5.0</text> </observationRange> </ referenceRange> </observation> </component> <component> <observation moodCode="EVN" classCode="OBS"> <templateId root= "216.840.1.282975.10..22.4.2" /> <id nullFlavor="NA" /> < code codeSystem="local" code="" displayName="Serum or plasma chloride measurement (moles/volume)" /> <statusCode code="completed" /> <effectiveTime value="" /> <value unit="mmol/L" xsi:type= "PQ" value="108" /> <interpretationCode codeSystem="local" code="" / > <referenceRange> <observationRange> <text>98- 107</text> </observationRange> </referenceRange> </ observation> </component> <component> <observation moodCode= "EVN" classCode="OBS"> <templateId root="16.840.1.878680.10..22.4.2 " /> <id nullFlavor="NA" /> <code codeSystem="local" code= "2027-12" displayName="Carbon dioxide" /> <statusCode code="completed" / > <effectiveTime value="" /> <value unit="mmol/L" xsi:type="PQ" value="19" /> <interpretationCode codeSystem="local" code ="" /> <referenceRange> <observationRange> < text>21-32</text> </observationRange> </referenceRange> </observation> </component> <component> <observation moodCode="EVN" classCode="OBS"> <templateId root= "16.840.1.169296.10..22.4.2" /> <id nullFlavor="NA" /> < code codeSystem="local" code="30545-2" displayName="Serum or plasma anion gap determination (moles/volume)" /> <statusCode code="completed" /> <effectiveTime value="546511164481" /> <value unit="mmol/L" xsi: type="PQ" value="10" /> <referenceRange> <observationRange> <text>5-14</text> </observationRange> </ referenceRange> </observation> </component> <component> <observation moodCode="EVN" classCode="OBS"> <templateId root= "216.840.1.374003.10.20.22.4.2" /> <id nullFlavor="NA" /> < code codeSystem="local" code="3094-0" displayName="Serum or plasma urea nitrogen measurement (mass/volume)" /> <statusCode code="completed" /> <effectiveTime value="439528887008" /> <value unit="mg/dL" xsi:type="PQ" value="8" /> <referenceRange> < observationRange> <text>7-18</text> </observationRange> </referenceRange> </observation> </component> < component> <observation moodCode="EVN" classCode="OBS"> < templateId root="16.840.1.779589.10.20.22.4.2" /> <id nullFlavor="NA " /> <code codeSystem="local" code="2160-0" displayName="Serum or plasma creatinine measurement (mass/volume)" /> <statusCode code= "completed" /> <effectiveTime value="482917989204" /> <value unit="mg/dL" xsi:type="PQ" value="0.73" /> <referenceRange> <observationRange> <text>0.60-1.30</text> </ observationRange> </referenceRange> </observation> </ component> <component> <observation moodCode="EVN" classCode="OBS"> <templateId root="05.27.840.1.814637.10.20.22.4.2" /> <id nullFlavor="NA" /> <code codeSystem="local" code="3097-3" displayName= "Serum or plasma urea nitrogen/creatinine mass ratio" /> <statusCode code="completed" /> <effectiveTime value="174253128922" /> < value unit="" xsi:type="PQ" value="11" /> <referenceRange> < observationRange> <text>NRG</text> </observationRange> </referenceRange> </observation> </component> < component> <observation moodCode="EVN" classCode="OBS"> < templateId root="2.16.840.1.829870.10.20.22.4.2" /> <id nullFlavor="NA " /> <code codeSystem="local" code="96135-1" displayName="Serum or plasma creatinine measurement with calculation of estimated glomerular filtration rate" /> <statusCode code="completed" /> < effectiveTime value="222718708708" /> <value unit="" xsi:type="PQ" value=">" /> <referenceRange> <observationRange> <text>NRG</text> </observationRange> </referenceRange > </observation> </component> <component> <observation moodCode="EVN" classCode="OBS"> <templateId root= "2.16.840.1.287887.10.20.22.4.2" /> <id nullFlavor="NA" /> < code codeSystem="local" code="2345-7" displayName="Serum or plasma glucose measurement (mass/volume)" /> <statusCode code="completed" /> <effectiveTime value="395180272845" /> <value unit="mg/dL" xsi:type="PQ " value="96" /> <referenceRange> <observationRange> <text>70-105</text> </observationRange> </ referenceRange> </observation> </component> <component> <observation moodCode="EVN" classCode="OBS"> <templateId root= "2.16.840.1.383612.10.20.22.4.2" /> <id nullFlavor="NA" /> < code codeSystem="local" code="32179-9" displayName="Serum or plasma calcium measurement (mass/volume)" /> <statusCode code="completed" /> <effectiveTime value="171500628492" /> <value unit="mg/dL" xsi:type="PQ " value="9.8" /> <referenceRange> <observationRange> <text>8.5-10.1</text> </observationRange> </ referenceRange> </observation> </component> <component> <observation moodCode="EVN" classCode="OBS"> <templateId root= "16.840.1.863573.10..22.4.2" /> <id nullFlavor="NA" /> < code codeSystem="local" code="1974-05" displayName="Serum or plasma total bilirubin measurement (mass/volume)" /> <statusCode code="completed" / > <effectiveTime value="098308762929" /> <value unit="mg/dL" xsi:type="PQ" value="0.3" /> <referenceRange> < observationRange> <text>0.1-1.0</text> </ observationRange> </referenceRange> </observation> </ component> <component> <observation moodCode="EVN" classCode="OBS"> <templateId root="216.840.1.788048.10.20.22.4.2" /> <id nullFlavor="NA" /> <code codeSystem="local" code="6768-6" displayName= "Serum or plasma alkaline phosphatase measurement (enzymatic activity/volume)" / > <statusCode code="completed" /> <effectiveTime value= "554211267266" /> <value unit="U/L" xsi:type="PQ" value="56" /> <referenceRange> <observationRange> <text>40-136</ text> </observationRange> </referenceRange> </ observation> </component> <component> <observation moodCode= "EVN" classCode="OBS"> <templateId root="2.16.840.1.552976.10.20.22.4.2 " /> <id nullFlavor="NA" /> <code codeSystem="local" code= "1919-11" displayName="Serum or plasma aspartate aminotransferase measurement ( enzymatic activity/volume)" /> <statusCode code="completed" /> <effectiveTime value="557308252557" /> <value unit="U/L" xsi:type="PQ " value="22" /> <referenceRange> <observationRange> <text>5-34</text> </observationRange> </referenceRange > </observation> </component> <component> <observation moodCode="EVN" classCode="OBS"> <templateId root= "216.840.1.067846.10.20.22.4.2" /> <id nullFlavor="NA" /> < code codeSystem="local" code="1741-09" displayName="Serum or plasma alanine aminotransferase measurement (enzymatic activity/volume)" /> < statusCode code="completed" /> <effectiveTime value="365079332680" /> <value unit="U/L" xsi:type="PQ" value="14" /> <referenceRange > <observationRange> <text>0-55</text> </ observationRange> </referenceRange> </observation> </ component> <component> <observation moodCode="EVN" classCode="OBS"> <templateId root="05.27.840.1.077922.10.20.22.4.2" /> <id nullFlavor="NA" /> <code codeSystem="local" code="2885-2" displayName= "Serum or plasma protein measurement (mass/volume)" /> <statusCode code ="completed" /> <effectiveTime value="133401129940" /> <value unit="g/dL" xsi:type="PQ" value="8.4" /> <interpretationCode codeSystem ="local" code="" /> <referenceRange> <observationRange> <text>6.4-8.2</text> </observationRange> </ referenceRange> </observation> </component> <component> <observation moodCode="EVN" classCode="OBS"> <templateId root= "2.16.840.1.494721.10..22.4.2" /> <id nullFlavor="NA" /> < code codeSystem="local" code="1751-7" displayName="Serum or plasma albumin measurement (mass/volume)" /> <statusCode code="completed" /> <effectiveTime value="197632567478" /> <value unit="g/dL" xsi:type="PQ " value="4.4" /> <referenceRange> <observationRange> <text>3.2-4.5</text> </observationRange> </ referenceRange> </observation> </component> </organizer> </entry > <entry> <organizer moodCode="EVN" classCode="BATTERY"> <templateId root="2.16.840.1.220314.10.20.22.4.1" /> <id nullFlavor="NA" /> <code codeSystem="local" code="4024-6" displayName="Serum or plasma salicylates measurement (mass/volume)" /> <statusCode code="completed" /> < component> <observation moodCode="EVN" classCode="OBS"> < templateId root="2.16.840.1.395633.10.20.22.4.2" /> <id nullFlavor="NA " /> <code codeSystem="local" code="4024-6" displayName="Serum or plasma salicylates measurement (mass/volume)" /> <statusCode code= "completed" /> <effectiveTime value="204913138957" /> <value unit="mg/dL" xsi:type="PQ" value="<" /> <interpretationCode codeSystem="local" code="" /> <referenceRange> < observationRange> <text>5.0-20.0</text> </ observationRange> </referenceRange> </observation> </ component> </organizer> </entry> <entry> <organizer moodCode="EVN" classCode="BATTERY"> <templateId root="2.16.840.1.197843.10..22.4.1" /> <id nullFlavor="NA" /> <code codeSystem="local" code="3298-7" displayName="Serum or plasma acetaminophen measurement (mass/volume)" /> < statusCode code="completed" /> <component> <observation moodCode= "EVN" classCode="OBS"> <templateId root="2.16.840.1.671680.10..22.4.2 " /> <id nullFlavor="NA" /> <code codeSystem="local" code= "3298-7" displayName="Serum or plasma acetaminophen measurement (mass/volume)" / > <statusCode code="completed" /> <effectiveTime value= "871567192607" /> <value unit="ug/mL" xsi:type="PQ" value="<" /> <interpretationCode codeSystem="local" code="" /> < referenceRange> <observationRange> <text>10-30</text> </observationRange> </referenceRange> </observation> </component> </organizer> </entry> <entry> <organizer moodCode="EVN " classCode="BATTERY"> <templateId root="216.840.1.735526.10..22.4.1" / > <id nullFlavor="NA" /> <code codeSystem="local" code="5643-2" displayName="Serum or plasma ethanol measurement (mass/volume)" /> < statusCode code="completed" /> <component> <observation moodCode= "EVN" classCode="OBS"> <templateId root="2.840.1.306634.10...4.2 " /> <id nullFlavor="NA" /> <code codeSystem="local" code= "5643-2" displayName="Serum or plasma ethanol measurement (mass/volume)" /> <statusCode code="completed" /> <effectiveTime value= "712703484210" /> <value unit="mg/dL" xsi:type="PQ" value="<" /> <referenceRange> <observationRange> <text><10< /text> </observationRange> </referenceRange> </ observation> </component> </organizer> </entry> <entry> <organizer moodCode="EVN" classCode="BATTERY"> <templateId root= "16.840.1.442344.10..22.4.1" /> <id nullFlavor="NA" /> <code codeSystem="local" code="37517-4" displayName="Complete urinalysis with reflex to culture" /> <statusCode code="completed" /> <component> < observation moodCode="EVN" classCode="OBS"> <templateId root= "216.840.1.289867.10.4.2" /> <id nullFlavor="NA" /> < code codeSystem="local" code="5778-6" displayName="Urine color determination" / > <statusCode code="completed" /> <effectiveTime value= "" /> <value unit="" xsi:type="PQ" value="YELLOW" /> <referenceRange> <observationRange> <text>NRG</text > </observationRange> </referenceRange> </observation > </component> <component> <observation moodCode="EVN" classCode="OBS"> <templateId root="2.16.840.1.472862.10.4.2" /> <id nullFlavor="NA" /> <code codeSystem="local" code="10018-7 " displayName="Urine clarity determination" /> <statusCode code= "completed" /> <effectiveTime value="" /> <value unit="" xsi:type="PQ" value="SLIGHTLY CLOUDY" /> <referenceRange> <observationRange> <text>NRG</text> </ observationRange> </referenceRange> </observation> </ component> <component> <observation moodCode="EVN" classCode="OBS"> <templateId root="2.16.840.1.282848.10...4.2" /> <id nullFlavor="NA" /> <code codeSystem="local" code="5803-2" displayName= "Urine pH measurement by test strip" /> <statusCode code="completed" / > <effectiveTime value="" /> <value unit="" xsi: type="PQ" value="6.5" /> <referenceRange> <observationRange > <text>5-9</text> </observationRange> </ referenceRange> </observation> </component> <component> <observation moodCode="EVN" classCode="OBS"> <templateId root= "16.840.1.220316.10..22.4.2" /> <id nullFlavor="NA" /> < code codeSystem="local" code="5811-5" displayName="Specific gravity of urine by test strip" /> <statusCode code="completed" /> <effectiveTime value="" /> <value unit="" xsi:type="PQ" value="1.010" /> <interpretationCode codeSystem="local" code="" /> < referenceRange> <observationRange> <text>1.016-1.022</ text> </observationRange> </referenceRange> </ observation> </component> <component> <observation moodCode= "EVN" classCode="OBS"> <templateId root="05.27.840.1.270462.01.28.22.4.2 " /> <id nullFlavor="NA" /> <code codeSystem="local" code= "15242-7" displayName="Urine protein assay by test strip, semi-quantitative" /> <statusCode code="completed" /> <effectiveTime value= "" /> <value unit="" xsi:type="PQ" value="NEGATIVE" /> <referenceRange> <observationRange> <text>NEGATIVE </text> </observationRange> </referenceRange> </ observation> </component> <component> <observation moodCode= "EVN" classCode="OBS"> <templateId root="16.840.1.757942.10..22.4.2 " /> <id nullFlavor="NA" /> <code codeSystem="local" code= "41912-8" displayName="Urine glucose detection by automated test strip" /> <statusCode code="completed" /> <effectiveTime value=" " /> <value unit="" xsi:type="PQ" value="NEGATIVE" /> < referenceRange> <observationRange> <text>NEGATIVE</text > </observationRange> </referenceRange> </observation > </component> <component> <observation moodCode="EVN" classCode="OBS"> <templateId root="05.27.840.1.980242.10.20.22.4.2" /> <id nullFlavor="NA" /> <code codeSystem="local" code="54549-1 " displayName="Erythrocytes detection in urine sediment by light microscopy" /> <statusCode code="completed" /> <effectiveTime value= "508517730619" /> <value unit="" xsi:type="PQ" value="4+" /> < interpretationCode codeSystem="local" code="*" /> <referenceRange> <observationRange> <text>NEGATIVE</text> </ observationRange> </referenceRange> </observation> </ component> <component> <observation moodCode="EVN" classCode="OBS"> <templateId root="05.27.840.1.946370.10..4.2" /> <id nullFlavor="NA" /> <code codeSystem="local" code="53022-3" displayName= "Urine ketones detection by automated test strip" /> <statusCode code= "completed" /> <effectiveTime value="" /> <value unit="" xsi:type="PQ" value="3+" /> <interpretationCode codeSystem= "local" code="*" /> <referenceRange> <observationRange> <text>NEGATIVE</text> </observationRange> </ referenceRange> </observation> </component> <component> <observation moodCode="EVN" classCode="OBS"> <templateId root= "05.27.840.1.101589.10.20.22.4.2" /> <id nullFlavor="NA" /> < code codeSystem="local" code="5802-4" displayName="Urine nitrite detection by test strip" /> <statusCode code="completed" /> <effectiveTime value="" /> <value unit="" xsi:type="PQ" value="NEGATIVE" / > <referenceRange> <observationRange> <text> NEGATIVE</text> </observationRange> </referenceRange> </observation> </component> <component> <observation moodCode ="EVN" classCode="OBS"> <templateId root= "2.16.840.1.366352.10.20.22.4.2" /> <id nullFlavor="NA" /> < code codeSystem="local" code="5770-3" displayName="Urine total bilirubin detection by test strip" /> <statusCode code="completed" /> < effectiveTime value="" /> <value unit="" xsi:type="PQ" value="NEGATIVE" /> <referenceRange> <observationRange> <text>NEGATIVE</text> </observationRange> </ referenceRange> </observation> </component> <component> <observation moodCode="EVN" classCode="OBS"> <templateId root= "2.16.840.1.281744.10.20.22.4.2" /> <id nullFlavor="NA" /> < code codeSystem="local" code="60748-0" displayName="Urine urobilinogen measurement by automated test strip (mass/volume)" /> <statusCode code= "completed" /> <effectiveTime value="" /> <value unit="" xsi:type="PQ" value="NORMAL" /> <referenceRange> < observationRange> <text>NORMAL</text> </observationRange > </referenceRange> </observation> </component> < component> <observation moodCode="EVN" classCode="OBS"> < templateId root="216.840.1.852875.10..22.4.2" /> <id nullFlavor="NA " /> <code codeSystem="local" code="5799-2" displayName="Urine leukocyte esterase detection by dipstick" /> <statusCode code= "completed" /> <effectiveTime value="" /> <value unit="" xsi:type="PQ" value="NEGATIVE" /> <referenceRange> < observationRange> <text>NEGATIVE</text> </ observationRange> </referenceRange> </observation> </ component> <component> <observation moodCode="EVN" classCode="OBS"> <templateId root="216.840.1.583147.10...4.2" /> <id nullFlavor="NA" /> <code codeSystem="local" code="77202-1" displayName= "Automated urine sediment erythrocyte count by microscopy (number/high power field)" /> <statusCode code="completed" /> <effectiveTime value="" /> <value unit="" xsi:type="PQ" value="RARE" /> <referenceRange> <observationRange> <text>NRG</ text> </observationRange> </referenceRange> </ observation> </component> <component> <observation moodCode= "EVN" classCode="OBS"> <templateId root="216.840.1.235563.10..22.4.2 " /> <id nullFlavor="NA" /> <code codeSystem="local" code= "5821-4" displayName="Automated urine sediment leukocyte count by microscopy ( number/high power field)" /> <statusCode code="completed" /> < effectiveTime value="" /> <value unit="[HPF]" xsi:type="PQ " value="" /> <referenceRange> <observationRange> <text>NRG</text> </observationRange> </referenceRange> </observation> </component> <component> <observation moodCode="EVN" classCode="OBS"> <templateId root= "16.840.1.828320.10.20.22.4.2" /> <id nullFlavor="NA" /> < code codeSystem="local" code="55817-1" displayName="Bacteria detection in urine sediment by light microscopy" /> <statusCode code="completed" /> <effectiveTime value="842478861001" /> <value unit="" xsi:type="PQ " value="NEGATIVE" /> <referenceRange> <observationRange> <text>NRG</text> </observationRange> </ referenceRange> </observation> </component> <component> <observation moodCode="EVN" classCode="OBS"> <templateId root= "05.27.840.1.859339.10...4.2" /> <id nullFlavor="NA" /> < code codeSystem="local" code="16891-3" displayName="Squamous epithelial cells detection in urine sediment by light microscopy" /> <statusCode code= "completed" /> <effectiveTime value="055124600414" /> <value unit="" xsi:type="PQ" value="2-5" /> <referenceRange> < observationRange> <text>NRG</text> </observationRange> </referenceRange> </observation> </component> < component> <observation moodCode="EVN" classCode="OBS"> < templateId root="05.27.840.1.453926.10.20.22.4.2" /> <id nullFlavor="NA " /> <code codeSystem="local" code="76704-1" displayName="Crystals detection in urine sediment by light microscopy" /> <statusCode code= "completed" /> <effectiveTime value="" /> <value unit="" xsi:type="PQ" value="NONE" /> <referenceRange> < observationRange> <text>NRG</text> </observationRange> </referenceRange> </observation> </component> < component> <observation moodCode="EVN" classCode="OBS"> < templateId root="216.840.1.229804.1022.4.2" /> <id nullFlavor="NA " /> <code codeSystem="local" code="09928-3" displayName="Casts detection in urine sediment by light microscopy" /> <statusCode code= "completed" /> <effectiveTime value="" /> <value unit="" xsi:type="PQ" value="NONE" /> <referenceRange> < observationRange> <text>NRG</text> </observationRange> </referenceRange> </observation> </component> < component> <observation moodCode="EVN" classCode="OBS"> < templateId root="216.840.1.860556.10.4.2" /> <id nullFlavor="NA " /> <code codeSystem="local" code="8247-9" displayName="Mucus detection in urine sediment by light microscopy" /> <statusCode code= "completed" /> <effectiveTime value="" /> <value unit="" xsi:type="PQ" value="NEGATIVE" /> <referenceRange> < observationRange> <text>NRG</text> </observationRange> </referenceRange> </observation> </component> < component> <observation moodCode="EVN" classCode="OBS"> < templateId root="216.840.1.900661.10.22.4.2" /> <id nullFlavor="NA " /> <code codeSystem="local" code="11294-5" displayName="Complete urinalysis with reflex to culture" /> <statusCode code="completed" /> <effectiveTime value="" /> <value unit="" xsi:type ="PQ" value="NO" /> <referenceRange> <observationRange> <text>NRG</text> </observationRange> </ referenceRange> </observation> </component> <component> <observation moodCode="EVN" classCode="OBS"> <templateId root= "16.840.1.624328.01.28.22.4.2" /> <id nullFlavor="NA" /> < code codeSystem="local" code="21534-6" displayName="Yeast detection in urine sediment by light microscopy" /> <statusCode code="completed" /> <effectiveTime value="" /> <value unit="" xsi:type="PQ " value="FEW" /> <interpretationCode codeSystem="local" code="*" /> <referenceRange> <observationRange> <text>NRG</ text> </observationRange> </referenceRange> </ observation> </component> </organizer> </entry> <entry> <organizer moodCode="EVN" classCode="BATTERY"> <templateId root= "05.27.840.1.405563.1022.4.1" /> <id nullFlavor="NA" /> <code codeSystem="local" code="04180-9" displayName="Urine drug screening test" /> <statusCode code="completed" /> <component> <observation moodCode ="EVN" classCode="OBS"> <templateId root= "05.27.840.1.932383.102022.4.2" /> <id nullFlavor="NA" /> < code codeSystem="local" code="73446-3" displayName="Urine phencyclidine detection by screening method" /> <statusCode code="completed" /> <effectiveTime value="220546455982" /> <value unit="" xsi:type="PQ " value="NEGATIVE" /> <referenceRange> <observationRange> <text>NEGATIVE</text> </observationRange> </ referenceRange> </observation> </component> <component> <observation moodCode="EVN" classCode="OBS"> <templateId root= "2.16.840.1.016284.10.20.22.4.2" /> <id nullFlavor="NA" /> < code codeSystem="local" code="50607-1" displayName="Urine benzodiazepines detection by screening method" /> <statusCode code="completed" /> <effectiveTime value="648478427616" /> <value unit="" xsi:type="PQ " value="POSITIVE" /> <interpretationCode codeSystem="local" code="*" / > <referenceRange> <observationRange> <text> NEGATIVE</text> </observationRange> </referenceRange> </observation> </component> <component> <observation moodCode ="EVN" classCode="OBS"> <templateId root= "2.16.840.1.549805.10.20.22.4.2" /> <id nullFlavor="NA" /> < code codeSystem="local" code="3397-7" displayName="Urine cocaine detection" /> <statusCode code="completed" /> <effectiveTime value= "391068434436" /> <value unit="" xsi:type="PQ" value="NEGATIVE" /> <referenceRange> <observationRange> <text>NEGATIVE </text> </observationRange> </referenceRange> </ observation> </component> <component> <observation moodCode= "EVN" classCode="OBS"> <templateId root="216.840.1.998791.10..22.4.2 " /> <id nullFlavor="NA" /> <code codeSystem="local" code= "20891-6" displayName="Urine amphetamines detection by screening method" /> <statusCode code="completed" /> <effectiveTime value= "" /> <value unit="" xsi:type="PQ" value="NEGATIVE" /> <referenceRange> <observationRange> <text>NEGATIVE </text> </observationRange> </referenceRange> </ observation> </component> <component> <observation moodCode= "EVN" classCode="OBS"> <templateId root="16.840.1.709709.10...4.2 " /> <id nullFlavor="NA" /> <code codeSystem="local" code= "01528-0" displayName="Urine methamphetamine detection by screening method" /> <statusCode code="completed" /> <effectiveTime value= "" /> <value unit="" xsi:type="PQ" value="NEGATIVE" /> <referenceRange> <observationRange> <text>NEGATIVE </text> </observationRange> </referenceRange> </ observation> </component> <component> <observation moodCode= "EVN" classCode="OBS"> <templateId root="16.840.1.494679.10.22.4.2 " /> <id nullFlavor="NA" /> <code codeSystem="local" code= "24861-8" displayName="Urine cannabinoids detection by screening method" /> <statusCode code="completed" /> <effectiveTime value= "" /> <value unit="" xsi:type="PQ" value="NEGATIVE" /> <referenceRange> <observationRange> <text>NEGATIVE </text> </observationRange> </referenceRange> </ observation> </component> <component> <observation moodCode= "EVN" classCode="OBS"> <templateId root="216.840.1.124612.10..22.4.2 " /> <id nullFlavor="NA" /> <code codeSystem="local" code= "68470-9" displayName="Urine opiates detection by screening method" /> <statusCode code="completed" /> <effectiveTime value="" /> <value unit="" xsi:type="PQ" value="NEGATIVE" /> < referenceRange> <observationRange> <text>NEGATIVE</text > </observationRange> </referenceRange> </observation > </component> <component> <observation moodCode="EVN" classCode="OBS"> <templateId root="216.840.1.673372.01.28.22.4.2" /> <id nullFlavor="NA" /> <code codeSystem="local" code="3377-9" displayName="Urine barbiturates detection" /> <statusCode code= "completed" /> <effectiveTime value="" /> <value unit="" xsi:type="PQ" value="NEGATIVE" /> <referenceRange> < observationRange> <text>NEGATIVE</text> </ observationRange> </referenceRange> </observation> </ component> <component> <observation moodCode="EVN" classCode="OBS"> <templateId root="216.840.1.878829.10..22.4.2" /> <id nullFlavor="NA" /> <code codeSystem="local" code="96529-8" displayName= "Screening urine tricyclic antidepressants detection" /> <statusCode code="completed" /> <effectiveTime value="" /> < value unit="" xsi:type="PQ" value="NEGATIVE" /> <referenceRange> <observationRange> <text>NEGATIVE</text> </ observationRange> </referenceRange> </observation> </ component> <component> <observation moodCode="EVN" classCode="OBS"> <templateId root="2.16.840.1.265321.10.20.22.4.2" /> <id nullFlavor="NA" /> <code codeSystem="local" code="61450-2" displayName= "Urine methadone detection by screening method" /> <statusCode code= "completed" /> <effectiveTime value="" /> <value unit="" xsi:type="PQ" value="NEGATIVE" /> <referenceRange> < observationRange> <text>NEGATIVE</text> </ observationRange> </referenceRange> </observation> </ component> <component> <observation moodCode="EVN" classCode="OBS"> <templateId root="16.840.1.030723.10.22.4.2" /> <id nullFlavor="NA" /> <code codeSystem="local" code="84059-0" displayName= "Urine oxycodone detection" /> <statusCode code="completed" /> <effectiveTime value="017195487298" /> <value unit="" xsi:type="PQ" value="NEGATIVE" /> <referenceRange> <observationRange> <text>NEGATIVE</text> </observationRange> </ referenceRange> </observation> </component> <component> <observation moodCode="EVN" classCode="OBS"> <templateId root= "16.840.1.650035.10.20.22.4.2" /> <id nullFlavor="NA" /> < code codeSystem="local" code="72785-0" displayName="Urine propoxyphene detection " /> <statusCode code="completed" /> <effectiveTime value= "715160582542" /> <value unit="" xsi:type="PQ" value="NEGATIVE" /> <referenceRange> <observationRange> <text>NEGATIVE </text> </observationRange> </referenceRange> </ observation> </component> <component> <observation moodCode= "EVN" classCode="OBS"> <templateId root="216.840.1.006354.10..4.2 " /> <id nullFlavor="NA" /> <code codeSystem="local" code= "46782-0" displayName="Urine buprenophrine screen" /> <statusCode code= "completed" /> <effectiveTime value="" /> <value unit="" xsi:type="PQ" value="NEGATIVE" /> <referenceRange> < observationRange> <text>NEGATIVE</text> </ observationRange> </referenceRange> </observation> </ component> </organizer> </entry> <entry> <organizer moodCode="EVN" classCode="BATTERY"> <templateId root="2.16.840.1.680754.10..4.1" /> <id nullFlavor="NA" /> <code codeSystem="local" code="36286-9" displayName="Capillary blood glucose measurement by glucometer (mass/volume)" / > <statusCode code="completed" /> <component> <observation moodCode="EVN" classCode="OBS"> <templateId root= "2.16.840.1.751577.10..22.4.2" /> <id nullFlavor="NA" /> < code codeSystem="local" code="31386-6" displayName="Capillary blood glucose measurement by glucometer (mass/volume)" /> <statusCode code="completed " /> <effectiveTime value="034633949868" /> <value unit="mg/dL " xsi:type="PQ" value="118" /> <interpretationCode codeSystem="local" code="" /> <referenceRange> <observationRange> <text>70-110</text> </observationRange> </referenceRange > </observation> </component> </organizer> </entry> <entry> <organizer moodCode="EVN" classCode="BATTERY"> <templateId root= "2.16.840.1.847150.10.20.22.4.1" /> <id nullFlavor="NA" /> <code codeSystem="local" code="84287-7" displayName="Complete blood count (CBC) with automated white blood cell (WBC) differential" /> <statusCode code= "completed" /> <component> <observation moodCode="EVN" classCode= "OBS"> <templateId root="2.16.840.1.787160.10.20.22.4.2" /> < id nullFlavor="NA" /> <code codeSystem="local" code="6690-2" displayName="Blood leukocytes automated count (number/volume)" /> < statusCode code="completed" /> <effectiveTime value="730425527478" /> <value unit="10*3/uL" xsi:type="PQ" value="7.2" /> < referenceRange> <observationRange> <text>4.3-11.0</text > </observationRange> </referenceRange> </observation > </component> <component> <observation moodCode="EVN" classCode="OBS"> <templateId root="2.16.840.1.521241.10.20.22.4.2" /> <id nullFlavor="NA" /> <code codeSystem="local" code="789-8" displayName="Blood erythrocytes automated count (number/volume)" /> < statusCode code="completed" /> <effectiveTime value="767376944521" /> <value unit="10*6/uL" xsi:type="PQ" value="4.09" /> < interpretationCode codeSystem="local" code="" /> <referenceRange> <observationRange> <text>4.35-5.85</text> </ observationRange> </referenceRange> </observation> </ component> <component> <observation moodCode="EVN" classCode="OBS"> <templateId root="2.16.840.1.825320.10.20.22.4.2" /> <id nullFlavor="NA" /> <code codeSystem="local" code="14751-3" displayName= "Venous blood hemoglobin measurement (mass/volume)" /> <statusCode code ="completed" /> <effectiveTime value="" /> <value unit="g/dL" xsi:type="PQ" value="9.5" /> <interpretationCode codeSystem ="local" code="" /> <referenceRange> <observationRange> <text>11.5-16.0</text> </observationRange> </ referenceRange> </observation> </component> <component> <observation moodCode="EVN" classCode="OBS"> <templateId root= "2.16.840.1.474307.10.20.22.4.2" /> <id nullFlavor="NA" /> < code codeSystem="local" code="51826-2" displayName="Blood hematocrit (volume fraction)" /> <statusCode code="completed" /> <effectiveTime value="" /> <value unit="%" xsi:type="PQ" value="31" / > <interpretationCode codeSystem="local" code="" /> < referenceRange> <observationRange> <text>35-52</text> </observationRange> </referenceRange> </observation> </component> <component> <observation moodCode="EVN" classCode= "OBS"> <templateId root="05.27.840.1.720890.10.2022.4.2" /> < id nullFlavor="NA" /> <code codeSystem="local" code="787-2" displayName ="Automated erythrocyte mean corpuscular volume" /> <statusCode code= "completed" /> <effectiveTime value="" /> <value unit="[foz_us]" xsi:type="PQ" value="76" /> <interpretationCode codeSystem="local" code="" /> <referenceRange> < observationRange> <text>80-99</text> </observationRange > </referenceRange> </observation> </component> < component> <observation moodCode="EVN" classCode="OBS"> < templateId root="05.27.840.1.237653.10.22.4.2" /> <id nullFlavor="NA " /> <code codeSystem="local" code="785-6" displayName="Automated erythrocyte mean corpuscular hemoglobin (mass per erythrocyte)" /> < statusCode code="completed" /> <effectiveTime value="" /> <value unit="pg" xsi:type="PQ" value="23" /> < interpretationCode codeSystem="local" code="" /> <referenceRange> <observationRange> <text>25-34</text> </ observationRange> </referenceRange> </observation> </ component> <component> <observation moodCode="EVN" classCode="OBS"> <templateId root="05.27.840.1.316546.10.2022.4.2" /> <id nullFlavor="NA" /> <code codeSystem="local" code="786-4" displayName= "Automated erythrocyte mean corpuscular hemoglobin concentration measurement ( mass/volume)" /> <statusCode code="completed" /> < effectiveTime value="" /> <value unit="g/dL" xsi:type="PQ" value="31" /> <interpretationCode codeSystem="local" code="" /> <referenceRange> <observationRange> <text>32-36</ text> </observationRange> </referenceRange> </ observation> </component> <component> <observation moodCode= "EVN" classCode="OBS"> <templateId root="2.16.840.1.685417.10.20.22.4.2 " /> <id nullFlavor="NA" /> <code codeSystem="local" code="788 -0" displayName="Automated erythrocyte distribution width ratio" /> < statusCode code="completed" /> <effectiveTime value="" /> <value unit="%" xsi:type="PQ" value="17.9" /> < interpretationCode codeSystem="local" code="" /> <referenceRange> <observationRange> <text>10.0-14.5</text> </ observationRange> </referenceRange> </observation> </ component> <component> <observation moodCode="EVN" classCode="OBS"> <templateId root="2.16.840.1.720803.10.20.22.4.2" /> <id nullFlavor="NA" /> <code codeSystem="local" code="777-3" displayName= "Automated blood platelet count (count/volume)" /> <statusCode code= "completed" /> <effectiveTime value="" /> <value unit="10*3/uL" xsi:type="PQ" value="473" /> <interpretationCode codeSystem="local" code="" /> <referenceRange> < observationRange> <text>130-400</text> </ observationRange> </referenceRange> </observation> </ component> <component> <observation moodCode="EVN" classCode="OBS"> <templateId root="216.840.1.957580.10.20.22.4.2" /> <id nullFlavor="NA" /> <code codeSystem="local" code="00584-7" displayName= "Automated blood platelet mean volume measurement" /> <statusCode code= "completed" /> <effectiveTime value="570053929723" /> <value unit="[chi [facility]]" xsi:type="PQ" value="9.9" /> <referenceRange> <observationRange> <text>7.4-10.4</text> </ observationRange> </referenceRange> </observation> </ component> <component> <observation moodCode="EVN" classCode="OBS"> <templateId root="05.27.840.1.136670.10.20.22.4.2" /> <id nullFlavor="NA" /> <code codeSystem="local" code="770-8" displayName= "Automated blood neutrophils/100 leukocytes" /> <statusCode code= "completed" /> <effectiveTime value="877847721062" /> <value unit="%" xsi:type="PQ" value="43" /> <referenceRange> < observationRange> <text>42-75</text> </observationRange > </referenceRange> </observation> </component> < component> <observation moodCode="EVN" classCode="OBS"> < templateId root="05.27.840.1.664594.10.20.22.4.2" /> <id nullFlavor="NA " /> <code codeSystem="local" code="736-9" displayName="Automated blood lymphocytes/100 leukocytes" /> <statusCode code="completed" /> <effectiveTime value="012878068610" /> <value unit="%" xsi: type="PQ" value="47" /> <interpretationCode codeSystem="local" code=" " /> <referenceRange> <observationRange> <text> 12-44</text> </observationRange> </referenceRange> </ observation> </component> <component> <observation moodCode= "EVN" classCode="OBS"> <templateId root="2.16.840.1.244781.10.20.22.4.2 " /> <id nullFlavor="NA" /> <code codeSystem="local" code= "19459-7" displayName="Blood monocytes/100 leukocytes" /> <statusCode code="completed" /> <effectiveTime value="652875681021" /> < value unit="%" xsi:type="PQ" value="7" /> <referenceRange> <observationRange> <text>0-12</text> </ observationRange> </referenceRange> </observation> </ component> <component> <observation moodCode="EVN" classCode="OBS"> <templateId root="2.16.840.1.931967.10.20.22.4.2" /> <id nullFlavor="NA" /> <code codeSystem="local" code="713-8" displayName= "Automated blood eosinophils/100 leukocytes" /> <statusCode code= "completed" /> <effectiveTime value="427436614991" /> <value unit="%" xsi:type="PQ" value="3" /> <referenceRange> < observationRange> <text>0-10</text> </observationRange> </referenceRange> </observation> </component> < component> <observation moodCode="EVN" classCode="OBS"> < templateId root="216.840.1.570131.10.20.22.4.2" /> <id nullFlavor="NA " /> <code codeSystem="local" code="706-2" displayName="Automated blood basophils/100 leukocytes" /> <statusCode code="completed" /> <effectiveTime value="" /> <value unit="%" xsi: type="PQ" value="0" /> <referenceRange> <observationRange> <text>0-10</text> </observationRange> </ referenceRange> </observation> </component> <component> <observation moodCode="EVN" classCode="OBS"> <templateId root= "16.840.1.484534.10.22.4.2" /> <id nullFlavor="NA" /> < code codeSystem="local" code="751-8" displayName="Blood neutrophils automated count (number/volume)" /> <statusCode code="completed" /> < effectiveTime value="" /> <value unit="10*3" xsi:type="PQ" value="3.1" /> <referenceRange> <observationRange> <text>1.8-7.8</text> </observationRange> </ referenceRange> </observation> </component> <component> <observation moodCode="EVN" classCode="OBS"> <templateId root= "16.840.1.146942.10.20.22.4.2" /> <id nullFlavor="NA" /> < code codeSystem="local" code="731-0" displayName="Blood lymphocytes automated count (number/volume)" /> <statusCode code="completed" /> < effectiveTime value="" /> <value unit="10*3" xsi:type="PQ" value="3.4" /> <referenceRange> <observationRange> <text>1.0-4.0</text> </observationRange> </ referenceRange> </observation> </component> <component> <observation moodCode="EVN" classCode="OBS"> <templateId root= "16.840.1.147320.10.20.22.4.2" /> <id nullFlavor="NA" /> < code codeSystem="local" code="742-7" displayName="Blood monocytes automated count (number/volume)" /> <statusCode code="completed" /> < effectiveTime value="277296629013" /> <value unit="10*3" xsi:type="PQ" value="0.5" /> <referenceRange> <observationRange> <text>0.0-1.0</text> </observationRange> </ referenceRange> </observation> </component> <component> <observation moodCode="EVN" classCode="OBS"> <templateId root= "05.27.840.1.700705.01.28.22.4.2" /> <id nullFlavor="NA" /> < code codeSystem="local" code="711-2" displayName="Automated eosinophil count" / > <statusCode code="completed" /> <effectiveTime value= "413617611238" /> <value unit="10*3/uL" xsi:type="PQ" value="0.2" /> <referenceRange> <observationRange> <text>0.0- 0.3</text> </observationRange> </referenceRange> </ observation> </component> <component> <observation moodCode= "EVN" classCode="OBS"> <templateId root="16.840.1.877999.10.20.22.4.2 " /> <id nullFlavor="NA" /> <code codeSystem="local" code="704 -7" displayName="Automated blood basophil count (count/volume)" /> < statusCode code="completed" /> <effectiveTime value="576431587106" /> <value unit="10*3/uL" xsi:type="PQ" value="0.0" /> < referenceRange> <observationRange> <text>0.0-0.1</text> </observationRange> </referenceRange> </observation > </component> </organizer> </entry> <entry> <organizer moodCode= "EVN" classCode="BATTERY"> <templateId root="2.16.840.1.036859.10.20.22.4.1 " /> <id nullFlavor="NA" /> <code codeSystem="local" code="39854-3" displayName="Comprehensive metabolic panel" /> <statusCode code="completed " /> <component> <observation moodCode="EVN" classCode="OBS"> <templateId root="2.16.840.1.154622.10.20.22.4.2" /> <id nullFlavor ="NA" /> <code codeSystem="local" code="2951-2" displayName="Serum or plasma sodium measurement (moles/volume)" /> <statusCode code= "completed" /> <effectiveTime value="195134533393" /> <value unit="mmol/L" xsi:type="PQ" value="139" /> <referenceRange> <observationRange> <text>135-145</text> </ observationRange> </referenceRange> </observation> </ component> <component> <observation moodCode="EVN" classCode="OBS"> <templateId root="216.840.1.612757.10.20.22.4.2" /> <id nullFlavor="NA" /> <code codeSystem="local" code="2823-3" displayName= "Serum or plasma potassium measurement (moles/volume)" /> <statusCode code="completed" /> <effectiveTime value="165420194621" /> < value unit="mmol/L" xsi:type="PQ" value="3.8" /> <referenceRange> <observationRange> <text>3.6-5.0</text> </ observationRange> </referenceRange> </observation> </ component> <component> <observation moodCode="EVN" classCode="OBS"> <templateId root="2.16.840.1.433900.10.20.22.4.2" /> <id nullFlavor="NA" /> <code codeSystem="local" code="" displayName= "Serum or plasma chloride measurement (moles/volume)" /> <statusCode code="completed" /> <effectiveTime value="181971071314" /> < value unit="mmol/L" xsi:type="PQ" value="113" /> <interpretationCode codeSystem="local" code="" /> <referenceRange> < observationRange> <text>98-107</text> </observationRange > </referenceRange> </observation> </component> < component> <observation moodCode="EVN" classCode="OBS"> < templateId root="2.16.840.1.265240.10.20.22.4.2" /> <id nullFlavor="NA " /> <code codeSystem="local" code="2027-12" displayName="Carbon dioxide " /> <statusCode code="completed" /> <effectiveTime value= "007028434319" /> <value unit="mmol/L" xsi:type="PQ" value="16" /> <interpretationCode codeSystem="local" code="" /> < referenceRange> <observationRange> <text>21-32</text> </observationRange> </referenceRange> </observation> </component> <component> <observation moodCode="EVN" classCode= "OBS"> <templateId root="2.16.840.1.060992.10.20.22.4.2" /> < id nullFlavor="NA" /> <code codeSystem="local" code="25468-1" displayName="Serum or plasma anion gap determination (moles/volume)" /> <statusCode code="completed" /> <effectiveTime value="552038584997" / > <value unit="mmol/L" xsi:type="PQ" value="10" /> < referenceRange> <observationRange> <text>5-14</text> </observationRange> </referenceRange> </observation> </component> <component> <observation moodCode="EVN" classCode= "OBS"> <templateId root="2.16.840.1.163615.10..22.4.2" /> < id nullFlavor="NA" /> <code codeSystem="local" code="3094-0" displayName="Serum or plasma urea nitrogen measurement (mass/volume)" /> <statusCode code="completed" /> <effectiveTime value="753245262991" /> <value unit="mg/dL" xsi:type="PQ" value="8" /> < referenceRange> <observationRange> <text>7-18</text> </observationRange> </referenceRange> </observation> </component> <component> <observation moodCode="EVN" classCode= "OBS"> <templateId root="2.16.840.1.621524.10.20.22.4.2" /> < id nullFlavor="NA" /> <code codeSystem="local" code="2160-0" displayName="Serum or plasma creatinine measurement (mass/volume)" /> < statusCode code="completed" /> <effectiveTime value="174859028157" /> <value unit="mg/dL" xsi:type="PQ" value="0.62" /> < referenceRange> <observationRange> <text>0.60-1.30</text > </observationRange> </referenceRange> </observation > </component> <component> <observation moodCode="EVN" classCode="OBS"> <templateId root="2.16.840.1.502043.10..22.4.2" /> <id nullFlavor="NA" /> <code codeSystem="local" code="3097-3" displayName="Serum or plasma urea nitrogen/creatinine mass ratio" /> < statusCode code="completed" /> <effectiveTime value="658971274308" /> <value unit="" xsi:type="PQ" value="13" /> <referenceRange> <observationRange> <text>NRG</text> </ observationRange> </referenceRange> </observation> </ component> <component> <observation moodCode="EVN" classCode="OBS"> <templateId root="216.840.1.536147.10...4.2" /> <id nullFlavor="NA" /> <code codeSystem="local" code="49682-2" displayName= "Serum or plasma creatinine measurement with calculation of estimated glomerular filtration rate" /> <statusCode code="completed" /> <effectiveTime value="188110017670" /> <value unit="" xsi:type="PQ" value=">" /> <referenceRange> <observationRange> <text>NRG</text> </observationRange> </referenceRange > </observation> </component> <component> <observation moodCode="EVN" classCode="OBS"> <templateId root= "2.16.840.1.753780.10..22.4.2" /> <id nullFlavor="NA" /> < code codeSystem="local" code="2345-7" displayName="Serum or plasma glucose measurement (mass/volume)" /> <statusCode code="completed" /> <effectiveTime value="015529420111" /> <value unit="mg/dL" xsi:type="PQ " value="89" /> <referenceRange> <observationRange> <text>70-105</text> </observationRange> </ referenceRange> </observation> </component> <component> <observation moodCode="EVN" classCode="OBS"> <templateId root= "2.16.840.1.193860.10.20.22.4.2" /> <id nullFlavor="NA" /> < code codeSystem="local" code="63755-7" displayName="Serum or plasma calcium measurement (mass/volume)" /> <statusCode code="completed" /> <effectiveTime value="997111520675" /> <value unit="mg/dL" xsi:type="PQ " value="8.6" /> <referenceRange> <observationRange> <text>8.5-10.1</text> </observationRange> </ referenceRange> </observation> </component> <component> <observation moodCode="EVN" classCode="OBS"> <templateId root= "2.16.840.1.183735.10.20.22.4.2" /> <id nullFlavor="NA" /> < code codeSystem="local" code="1974-05" displayName="Serum or plasma total bilirubin measurement (mass/volume)" /> <statusCode code="completed" / > <effectiveTime value="424894413898" /> <value unit="mg/dL" xsi:type="PQ" value="0.3" /> <referenceRange> < observationRange> <text>0.1-1.0</text> </ observationRange> </referenceRange> </observation> </ component> <component> <observation moodCode="EVN" classCode="OBS"> <templateId root="2.16.840.1.620864.10..22.4.2" /> <id nullFlavor="NA" /> <code codeSystem="local" code="6768-" displayName= "Serum or plasma alkaline phosphatase measurement (enzymatic activity/volume)" / > <statusCode code="completed" /> <effectiveTime value= "183055329535" /> <value unit="U/L" xsi:type="PQ" value="44" /> <referenceRange> <observationRange> <text>40-136</ text> </observationRange> </referenceRange> </ observation> </component> <component> <observation moodCode= "EVN" classCode="OBS"> <templateId root="2.16.840.1.968755.10..22.4.2 " /> <id nullFlavor="NA" /> <code codeSystem="local" code= "192" displayName="Serum or plasma aspartate aminotransferase measurement ( enzymatic activity/volume)" /> <statusCode code="completed" /> <effectiveTime value="712049897570" /> <value unit="U/L" xsi:type="PQ " value="12" /> <referenceRange> <observationRange> <text>5-34</text> </observationRange> </referenceRange > </observation> </component> <component> <observation moodCode="EVN" classCode="OBS"> <templateId root= "2.16.840.1.210855.10..22.4.2" /> <id nullFlavor="NA" /> < code codeSystem="local" code="17405-17" displayName="Serum or plasma alanine aminotransferase measurement (enzymatic activity/volume)" /> < statusCode code="completed" /> <effectiveTime value="070853454303" /> <value unit="U/L" xsi:type="PQ" value="12" /> <referenceRange > <observationRange> <text>0-55</text> </ observationRange> </referenceRange> </observation> </ component> <component> <observation moodCode="EVN" classCode="OBS"> <templateId root="2.16.840.1.477286.10..22.4.2" /> <id nullFlavor="NA" /> <code codeSystem="local" code="2885-2" displayName= "Serum or plasma protein measurement (mass/volume)" /> <statusCode code ="completed" /> <effectiveTime value="434781005770" /> <value unit="g/dL" xsi:type="PQ" value="5.9" /> <interpretationCode codeSystem ="local" code="" /> <referenceRange> <observationRange> <text>6.4-8.2</text> </observationRange> </ referenceRange> </observation> </component> <component> <observation moodCode="EVN" classCode="OBS"> <templateId root= "2.16.840.1.906375.10.20.22.4.2" /> <id nullFlavor="NA" /> < code codeSystem="local" code="1751-7" displayName="Serum or plasma albumin measurement (mass/volume)" /> <statusCode code="completed" /> <effectiveTime value="209256684462" /> <value unit="g/dL" xsi:type="PQ " value="3.4" /> <referenceRange> <observationRange> <text>3.2-4.5</text> </observationRange> </ referenceRange> </observation> </component> </organizer> </entry > <entry> <organizer moodCode="EVN" classCode="BATTERY"> <templateId root="16.840.1.986597.10...4.1" /> <id nullFlavor="NA" /> <code codeSystem="local" code="2777-" displayName="Serum or plasma phosphate measurement (mass/volume)" /> <statusCode code="completed" /> < component> <observation moodCode="EVN" classCode="OBS"> < templateId root="05.27.840.1.979491.10..4.2" /> <id nullFlavor="NA " /> <code codeSystem="local" code="2777" displayName="Serum or plasma phosphate measurement (mass/volume)" /> <statusCode code= "completed" /> <effectiveTime value="260529438275" /> <value unit="mg/dL" xsi:type="PQ" value="3.7" /> <referenceRange> < observationRange> <text>2.3-4.7</text> </ observationRange> </referenceRange> </observation> </ component> </organizer> </entry> <entry> <organizer moodCode="EVN" classCode="BATTERY"> <templateId root="05.27.840.1.871346.01.28.22.4.1" /> <id nullFlavor="NA" /> <code codeSystem="local" code="21157-0" displayName="Magnesium" /> <statusCode code="completed" /> <component > <observation moodCode="EVN" classCode="OBS"> <templateId root= "05.27.840.1.974281.22.4.2" /> <id nullFlavor="NA" /> < code codeSystem="local" code="53076-1" displayName="Magnesium" /> < statusCode code="completed" /> <effectiveTime value="701364574874" /> <value unit="mg/dL" xsi:type="PQ" value="2.1" /> < referenceRange> <observationRange> <text>1.8-2.4</text> </observationRange> </referenceRange> </observation > </component> </organizer> </entry> <entry> <organizer moodCode= "EVN" classCode="BATTERY"> <templateId root="216.840.1.965567.10.20.22.4.1 " /> <id nullFlavor="NA" /> <code codeSystem="local" code="82168-1" displayName="Complete blood count (CBC) with automated white blood cell (WBC) differential" /> <statusCode code="completed" /> <component> < observation moodCode="EVN" classCode="OBS"> <templateId root= "2.16.840.1.999817.10.20.22.4.2" /> <id nullFlavor="NA" /> < code codeSystem="local" code="6690-2" displayName="Blood leukocytes automated count (number/volume)" /> <statusCode code="completed" /> < effectiveTime value="898085040903" /> <value unit="10*3/uL" xsi:type= "PQ" value="10.3" /> <referenceRange> <observationRange> <text>4.3-11.0</text> </observationRange> </ referenceRange> </observation> </component> <component> <observation moodCode="EVN" classCode="OBS"> <templateId root= "2.16.840.1.050207.10.20.22.4.2" /> <id nullFlavor="NA" /> < code codeSystem="local" code="789-8" displayName="Blood erythrocytes automated count (number/volume)" /> <statusCode code="completed" /> < effectiveTime value="760520439367" /> <value unit="10*6/uL" xsi:type= "PQ" value="4.79" /> <referenceRange> <observationRange> <text>4.35-5.85</text> </observationRange> </ referenceRange> </observation> </component> <component> <observation moodCode="EVN" classCode="OBS"> <templateId root= "2.16.840.1.075119.10.20.22.4.2" /> <id nullFlavor="NA" /> < code codeSystem="local" code="74109-7" displayName="Venous blood hemoglobin measurement (mass/volume)" /> <statusCode code="completed" /> <effectiveTime value="168607524933" /> <value unit="g/dL" xsi:type="PQ " value="11.5" /> <referenceRange> <observationRange> <text>11.5-16.0</text> </observationRange> </ referenceRange> </observation> </component> <component> <observation moodCode="EVN" classCode="OBS"> <templateId root= "2.16.840.1.380614.10.20.22.4.2" /> <id nullFlavor="NA" /> < code codeSystem="local" code="34239-0" displayName="Blood hematocrit (volume fraction)" /> <statusCode code="completed" /> <effectiveTime value="821037297512" /> <value unit="%" xsi:type="PQ" value="37" / > <referenceRange> <observationRange> <text>35- 52</text> </observationRange> </referenceRange> </ observation> </component> <component> <observation moodCode= "EVN" classCode="OBS"> <templateId root=".16.840.1.117422.10..22.4.2 " /> <id nullFlavor="NA" /> <code codeSystem="local" code="787 -2" displayName="Automated erythrocyte mean corpuscular volume" /> < statusCode code="completed" /> <effectiveTime value="671668079963" /> <value unit="[foz_us]" xsi:type="PQ" value="77" /> < interpretationCode codeSystem="local" code="" /> <referenceRange> <observationRange> <text>80-99</text> </ observationRange> </referenceRange> </observation> </ component> <component> <observation moodCode="EVN" classCode="OBS"> <templateId root="05.27.840.1.786589.10...4.2" /> <id nullFlavor="NA" /> <code codeSystem="local" code="785-6" displayName= "Automated erythrocyte mean corpuscular hemoglobin (mass per erythrocyte)" /> <statusCode code="completed" /> <effectiveTime value= "174987026774" /> <value unit="pg" xsi:type="PQ" value="24" /> <interpretationCode codeSystem="local" code="" /> <referenceRange> <observationRange> <text>25-34</text> </ observationRange> </referenceRange> </observation> </ component> <component> <observation moodCode="EVN" classCode="OBS"> <templateId root="05.27.840.1.586973.10..22.4.2" /> <id nullFlavor="NA" /> <code codeSystem="local" code="786-4" displayName= "Automated erythrocyte mean corpuscular hemoglobin concentration measurement ( mass/volume)" /> <statusCode code="completed" /> < effectiveTime value="522728609174" /> <value unit="g/dL" xsi:type="PQ" value="31" /> <interpretationCode codeSystem="local" code="" /> <referenceRange> <observationRange> <text>32-36</ text> </observationRange> </referenceRange> </ observation> </component> <component> <observation moodCode= "EVN" classCode="OBS"> <templateId root="2.16.840.1.678698.10.20.22.4.2 " /> <id nullFlavor="NA" /> <code codeSystem="local" code="788 -0" displayName="Automated erythrocyte distribution width ratio" /> < statusCode code="completed" /> <effectiveTime value="149814505836" /> <value unit="%" xsi:type="PQ" value="17.3" /> < interpretationCode codeSystem="local" code="" /> <referenceRange> <observationRange> <text>10.0-14.5</text> </ observationRange> </referenceRange> </observation> </ component> <component> <observation moodCode="EVN" classCode="OBS"> <templateId root="2.16.840.1.675601.10.20.22.4.2" /> <id nullFlavor="NA" /> <code codeSystem="local" code="777-3" displayName= "Automated blood platelet count (count/volume)" /> <statusCode code= "completed" /> <effectiveTime value="704809363932" /> <value unit="10*3/uL" xsi:type="PQ" value="456" /> <interpretationCode codeSystem="local" code="" /> <referenceRange> < observationRange> <text>130-400</text> </ observationRange> </referenceRange> </observation> </ component> <component> <observation moodCode="EVN" classCode="OBS"> <templateId root="2.16.840.1.024450.10.20.22.4.2" /> <id nullFlavor="NA" /> <code codeSystem="local" code="88158-9" displayName= "Automated blood platelet mean volume measurement" /> <statusCode code= "completed" /> <effectiveTime value="048321409997" /> <value unit="[foz_us]" xsi:type="PQ" value="9.6" /> <referenceRange> <observationRange> <text>7.4-10.4</text> </ observationRange> </referenceRange> </observation> </ component> <component> <observation moodCode="EVN" classCode="OBS"> <templateId root="2.16.840.1.690139.10.22.4.2" /> <id nullFlavor="NA" /> <code codeSystem="local" code="770-8" displayName= "Automated blood neutrophils/100 leukocytes" /> <statusCode code= "completed" /> <effectiveTime value="963817209319" /> <value unit="%" xsi:type="PQ" value="69" /> <referenceRange> < observationRange> <text>42-75</text> </observationRange > </referenceRange> </observation> </component> < component> <observation moodCode="EVN" classCode="OBS"> < templateId root="216.840.1.232502.10.20.22.4.2" /> <id nullFlavor="NA " /> <code codeSystem="local" code="736-9" displayName="Automated blood lymphocytes/100 leukocytes" /> <statusCode code="completed" /> <effectiveTime value="223303141143" /> <value unit="%" xsi: type="PQ" value="23" /> <referenceRange> <observationRange> <text>12-44</text> </observationRange> </ referenceRange> </observation> </component> <component> <observation moodCode="EVN" classCode="OBS"> <templateId root= "2.16.840.1.426741.10.20.22.4.2" /> <id nullFlavor="NA" /> < code codeSystem="local" code="16777-2" displayName="Blood monocytes/100 leukocytes" /> <statusCode code="completed" /> <effectiveTime value="035096642000" /> <value unit="%" xsi:type="PQ" value="5" /> <referenceRange> <observationRange> <text>0-12 </text> </observationRange> </referenceRange> </ observation> </component> <component> <observation moodCode= "EVN" classCode="OBS"> <templateId root="216.840.1.200553.10.20.22.4.2 " /> <id nullFlavor="NA" /> <code codeSystem="local" code="713 -8" displayName="Automated blood eosinophils/100 leukocytes" /> < statusCode code="completed" /> <effectiveTime value="658608831764" /> <value unit="%" xsi:type="PQ" value="2" /> <referenceRange > <observationRange> <text>0-10</text> </ observationRange> </referenceRange> </observation> </ component> <component> <observation moodCode="EVN" classCode="OBS"> <templateId root="2.16.840.1.674663.10.20.22.4.2" /> <id nullFlavor="NA" /> <code codeSystem="local" code="706-2" displayName= "Automated blood basophils/100 leukocytes" /> <statusCode code= "completed" /> <effectiveTime value="608048114276" /> <value unit="%" xsi:type="PQ" value="0" /> <referenceRange> < observationRange> <text>0-10</text> </observationRange> </referenceRange> </observation> </component> < component> <observation moodCode="EVN" classCode="OBS"> < templateId root="2.16.840.1.360481.10.20.22.4.2" /> <id nullFlavor="NA " /> <code codeSystem="local" code="751-8" displayName="Blood neutrophils automated count (number/volume)" /> <statusCode code= "completed" /> <effectiveTime value="942194443064" /> <value unit="10*3" xsi:type="PQ" value="7.1" /> <referenceRange> < observationRange> <text>1.8-7.8</text> </ observationRange> </referenceRange> </observation> </ component> <component> <observation moodCode="EVN" classCode="OBS"> <templateId root="2.16.840.1.674033.10.20.22.4.2" /> <id nullFlavor="NA" /> <code codeSystem="local" code="731-0" displayName= "Blood lymphocytes automated count (number/volume)" /> <statusCode code ="completed" /> <effectiveTime value="822900352336" /> <value unit="10*3" xsi:type="PQ" value="2.4" /> <referenceRange> < observationRange> <text>1.0-4.0</text> </ observationRange> </referenceRange> </observation> </ component> <component> <observation moodCode="EVN" classCode="OBS"> <templateId root="216.840.1.390999.10.20.22.4.2" /> <id nullFlavor="NA" /> <code codeSystem="local" code="742-7" displayName= "Blood monocytes automated count (number/volume)" /> <statusCode code= "completed" /> <effectiveTime value="141019745479" /> <value unit="10*3" xsi:type="PQ" value="0.6" /> <referenceRange> < observationRange> <text>0.0-1.0</text> </ observationRange> </referenceRange> </observation> </ component> <component> <observation moodCode="EVN" classCode="OBS"> <templateId root="16.840.1.015600..22.4.2" /> <id nullFlavor="NA" /> <code codeSystem="local" code="711-2" displayName= "Automated eosinophil count" /> <statusCode code="completed" /> <effectiveTime value="901744287790" /> <value unit="10*3/uL" xsi: type="PQ" value="0.3" /> <referenceRange> <observationRange > <text>0.0-0.3</text> </observationRange> </ referenceRange> </observation> </component> <component> <observation moodCode="EVN" classCode="OBS"> <templateId root= "16.840.1.602964.10.2022.4.2" /> <id nullFlavor="NA" /> < code codeSystem="local" code="704-7" displayName="Automated blood basophil count (count/volume)" /> <statusCode code="completed" /> < effectiveTime value="195636018859" /> <value unit="10*3/uL" xsi:type= "PQ" value="0.0" /> <referenceRange> <observationRange> <text>0.0-0.1</text> </observationRange> </ referenceRange> </observation> </component> </organizer> </entry > <entry> <organizer moodCode="EVN" classCode="BATTERY"> <templateId root="2.16.840.1.664643.10.20.22.4.1" /> <id nullFlavor="NA" /> <code codeSystem="local" code="29723-2" displayName="Comprehensive metabolic panel" / > <statusCode code="completed" /> <component> <observation moodCode="EVN" classCode="OBS"> <templateId root= "2.16.840.1.986139.10..22.4.2" /> <id nullFlavor="NA" /> < code codeSystem="local" code="2951-2" displayName="Serum or plasma sodium measurement (moles/volume)" /> <statusCode code="completed" /> <effectiveTime value="890131161970" /> <value unit="mmol/L" xsi:type= "PQ" value="139" /> <referenceRange> <observationRange> <text>135-145</text> </observationRange> </ referenceRange> </observation> </component> <component> <observation moodCode="EVN" classCode="OBS"> <templateId root= "216.840.1.871659.10..22.4.2" /> <id nullFlavor="NA" /> < code codeSystem="local" code="2823-3" displayName="Serum or plasma potassium measurement (moles/volume)" /> <statusCode code="completed" /> <effectiveTime value="063074456901" /> <value unit="mmol/L" xsi:type= "PQ" value="4.0" /> <referenceRange> <observationRange> <text>3.6-5.0</text> </observationRange> </ referenceRange> </observation> </component> <component> <observation moodCode="EVN" classCode="OBS"> <templateId root= "216.840.1.337581.10.20.22.4.2" /> <id nullFlavor="NA" /> < code codeSystem="local" code="" displayName="Serum or plasma chloride measurement (moles/volume)" /> <statusCode code="completed" /> <effectiveTime value="829965676911" /> <value unit="mmol/L" xsi:type= "PQ" value="107" /> <referenceRange> <observationRange> <text>98-107</text> </observationRange> </ referenceRange> </observation> </component> <component> <observation moodCode="EVN" classCode="OBS"> <templateId root= "05.27.840.1.583618.10..22.4.2" /> <id nullFlavor="NA" /> < code codeSystem="local" code="2027-12" displayName="Carbon dioxide" /> < statusCode code="completed" /> <effectiveTime value="903520891090" /> <value unit="mmol/L" xsi:type="PQ" value="25" /> < referenceRange> <observationRange> <text>21-32</text> </observationRange> </referenceRange> </observation> </component> <component> <observation moodCode="EVN" classCode= "OBS"> <templateId root="05.27.840.1.488286.10.20.22.4.2" /> < id nullFlavor="NA" /> <code codeSystem="local" code="03498-2" displayName="Serum or plasma anion gap determination (moles/volume)" /> <statusCode code="completed" /> <effectiveTime value="814833945003" / > <value unit="mmol/L" xsi:type="PQ" value="7" /> < referenceRange> <observationRange> <text>5-14</text> </observationRange> </referenceRange> </observation> </component> <component> <observation moodCode="EVN" classCode= "OBS"> <templateId root="2.16.840.1.098390.10.20.22.4.2" /> < id nullFlavor="NA" /> <code codeSystem="local" code="3094-0" displayName="Serum or plasma urea nitrogen measurement (mass/volume)" /> <statusCode code="completed" /> <effectiveTime value="602282300638" /> <value unit="mg/dL" xsi:type="PQ" value="8" /> < referenceRange> <observationRange> <text>7-18</text> </observationRange> </referenceRange> </observation> </component> <component> <observation moodCode="EVN" classCode= "OBS"> <templateId root="2.16.840.1.170148.10.20.22.4.2" /> < id nullFlavor="NA" /> <code codeSystem="local" code="2160-0" displayName="Serum or plasma creatinine measurement (mass/volume)" /> < statusCode code="completed" /> <effectiveTime value="582732156721" /> <value unit="mg/dL" xsi:type="PQ" value="0.75" /> < referenceRange> <observationRange> <text>0.60-1.30</text > </observationRange> </referenceRange> </observation > </component> <component> <observation moodCode="EVN" classCode="OBS"> <templateId root="2.16.840.1.469469.10.20.22.4.2" /> <id nullFlavor="NA" /> <code codeSystem="local" code="3097-3" displayName="Serum or plasma urea nitrogen/creatinine mass ratio" /> < statusCode code="completed" /> <effectiveTime value="469635585641" /> <value unit="" xsi:type="PQ" value="11" /> <referenceRange> <observationRange> <text>NRG</text> </ observationRange> </referenceRange> </observation> </ component> <component> <observation moodCode="EVN" classCode="OBS"> <templateId root="216.840.1.767517.10..22.4.2" /> <id nullFlavor="NA" /> <code codeSystem="local" code="91012-2" displayName= "Serum or plasma creatinine measurement with calculation of estimated glomerular filtration rate" /> <statusCode code="completed" /> <effectiveTime value="372892292878" /> <value unit="" xsi:type="PQ" value=">" /> <referenceRange> <observationRange> <text>NRG</text> </observationRange> </referenceRange > </observation> </component> <component> <observation moodCode="EVN" classCode="OBS"> <templateId root= "216.840.1.071806.10.20.22.4.2" /> <id nullFlavor="NA" /> < code codeSystem="local" code="2345-7" displayName="Serum or plasma glucose measurement (mass/volume)" /> <statusCode code="completed" /> <effectiveTime value="074004896531" /> <value unit="mg/dL" xsi:type="PQ " value="90" /> <referenceRange> <observationRange> <text>70-105</text> </observationRange> </ referenceRange> </observation> </component> <component> <observation moodCode="EVN" classCode="OBS"> <templateId root= "216.840.1.479347.10.20.22.4.2" /> <id nullFlavor="NA" /> < code codeSystem="local" code="28915-6" displayName="Serum or plasma calcium measurement (mass/volume)" /> <statusCode code="completed" /> <effectiveTime value="563106603649" /> <value unit="mg/dL" xsi:type="PQ " value="9.6" /> <referenceRange> <observationRange> <text>8.5-10.1</text> </observationRange> </ referenceRange> </observation> </component> <component> <observation moodCode="EVN" classCode="OBS"> <templateId root= "16.840.1.364921.10..22.4.2" /> <id nullFlavor="NA" /> < code codeSystem="local" code="1975" displayName="Serum or plasma total bilirubin measurement (mass/volume)" /> <statusCode code="completed" / > <effectiveTime value="664116946515" /> <value unit="mg/dL" xsi:type="PQ" value="0.2" /> <referenceRange> < observationRange> <text>0.1-1.0</text> </ observationRange> </referenceRange> </observation> </ component> <component> <observation moodCode="EVN" classCode="OBS"> <templateId root="16.840.1.169665.10.20.22.4.2" /> <id nullFlavor="NA" /> <code codeSystem="local" code="6768-6" displayName= "Serum or plasma alkaline phosphatase measurement (enzymatic activity/volume)" / > <statusCode code="completed" /> <effectiveTime value= "784633409326" /> <value unit="U/L" xsi:type="PQ" value="50" /> <referenceRange> <observationRange> <text>40-136</ text> </observationRange> </referenceRange> </ observation> </component> <component> <observation moodCode= "EVN" classCode="OBS"> <templateId root="2.16.840.1.740749.10.20.22.4.2 " /> <id nullFlavor="NA" /> <code codeSystem="local" code= "1919-11" displayName="Serum or plasma aspartate aminotransferase measurement ( enzymatic activity/volume)" /> <statusCode code="completed" /> <effectiveTime value="699476896926" /> <value unit="U/L" xsi:type="PQ " value="12" /> <referenceRange> <observationRange> <text>5-34</text> </observationRange> </referenceRange > </observation> </component> <component> <observation moodCode="EVN" classCode="OBS"> <templateId root= "2.16.840.1.897430.10.20.22.4.2" /> <id nullFlavor="NA" /> < code codeSystem="local" code="1741-09" displayName="Serum or plasma alanine aminotransferase measurement (enzymatic activity/volume)" /> < statusCode code="completed" /> <effectiveTime value="063457121369" /> <value unit="U/L" xsi:type="PQ" value="11" /> <referenceRange > <observationRange> <text>0-55</text> </ observationRange> </referenceRange> </observation> </ component> <component> <observation moodCode="EVN" classCode="OBS"> <templateId root="2.16.840.1.938091.10.20.22.4.2" /> <id nullFlavor="NA" /> <code codeSystem="local" code="2885-" displayName= "Serum or plasma protein measurement (mass/volume)" /> <statusCode code ="completed" /> <effectiveTime value="669908212315" /> <value unit="g/dL" xsi:type="PQ" value="7.4" /> <referenceRange> < observationRange> <text>6.4-8.2</text> </ observationRange> </referenceRange> </observation> </ component> <component> <observation moodCode="EVN" classCode="OBS"> <templateId root="16.840.1.803400.10.20.22.4.2" /> <id nullFlavor="NA" /> <code codeSystem="local" code="1750-10" displayName= "Serum or plasma albumin measurement (mass/volume)" /> <statusCode code ="completed" /> <effectiveTime value="972166873322" /> <value unit="g/dL" xsi:type="PQ" value="4.1" /> <referenceRange> < observationRange> <text>3.2-4.5</text> </ observationRange> </referenceRange> </observation> </ component> </organizer> </entry> <entry> <organizer moodCode="EVN" classCode="BATTERY"> <templateId root="2.16.840.1.220235.10.20.22.4.1" /> <id nullFlavor="NA" /> <code codeSystem="local" code="1987-08" displayName="Serum or plasma C reactive protein measurement (mass/volume)" /> <statusCode code="completed" /> <component> <observation moodCode="EVN" classCode="OBS"> <templateId root= "216.840.1.975207.10.20.22.4.2" /> <id nullFlavor="NA" /> < code codeSystem="local" code="1987-08" displayName="Serum or plasma C reactive protein measurement (mass/volume)" /> <statusCode code="completed" /> <effectiveTime value="848901527667" /> <value unit="mg/dL" xsi :type="PQ" value="1.27" /> <interpretationCode codeSystem="local" code= "" /> <referenceRange> <observationRange> < text>0.00-0.50</text> </observationRange> </referenceRange> </observation> </component> </organizer> </entry> <entry> < organizer moodCode="EVN" classCode="BATTERY"> <templateId root= "216.840.1.657066.10..22.4.1" /> <id nullFlavor="NA" /> <code codeSystem="local" code="56650-6" displayName="Complete urinalysis with reflex to culture" /> <statusCode code="completed" /> <component> < observation moodCode="EVN" classCode="OBS"> <templateId root= "2.16.840.1.774476.10..22.4.2" /> <id nullFlavor="NA" /> < code codeSystem="local" code="5778-6" displayName="Urine color determination" / > <statusCode code="completed" /> <effectiveTime value= "361315205298" /> <value unit="" xsi:type="PQ" value="YELLOW" /> <referenceRange> <observationRange> <text>NRG</text > </observationRange> </referenceRange> </observation > </component> <component> <observation moodCode="EVN" classCode="OBS"> <templateId root="16.840.1.927387.10.20.22.4.2" /> <id nullFlavor="NA" /> <code codeSystem="local" code="94499-8 " displayName="Urine clarity determination" /> <statusCode code= "completed" /> <effectiveTime value="329879666191" /> <value unit="" xsi:type="PQ" value="CLEAR" /> <referenceRange> < observationRange> <text>NRG</text> </observationRange> </referenceRange> </observation> </component> < component> <observation moodCode="EVN" classCode="OBS"> < templateId root="16.840.1.300551.10..22.4.2" /> <id nullFlavor="NA " /> <code codeSystem="local" code="5803-2" displayName="Urine pH measurement by test strip" /> <statusCode code="completed" /> <effectiveTime value="655611237025" /> <value unit="" xsi:type="PQ" value="6" /> <referenceRange> <observationRange> <text>5-9</text> </observationRange> </referenceRange> </observation> </component> <component> <observation moodCode="EVN" classCode="OBS"> <templateId root= "16.840.1.371615.10.20.22.4.2" /> <id nullFlavor="NA" /> < code codeSystem="local" code="5811-5" displayName="Specific gravity of urine by test strip" /> <statusCode code="completed" /> <effectiveTime value="003384608696" /> <value unit="" xsi:type="PQ" value="1.020" /> <referenceRange> <observationRange> <text>1.016 -1.022</text> </observationRange> </referenceRange> < /observation> </component> <component> <observation moodCode= "EVN" classCode="OBS"> <templateId root="216.840.1.986053.10.22.4.2 " /> <id nullFlavor="NA" /> <code codeSystem="local" code= "80940-2" displayName="Urine protein assay by test strip, semi-quantitative" /> <statusCode code="completed" /> <effectiveTime value= "159955221710" /> <value unit="" xsi:type="PQ" value="NEGATIVE" /> <referenceRange> <observationRange> <text>NEGATIVE </text> </observationRange> </referenceRange> </ observation> </component> <component> <observation moodCode= "EVN" classCode="OBS"> <templateId root="05.27.840.1.840545.10.4.2 " /> <id nullFlavor="NA" /> <code codeSystem="local" code= "05162-9" displayName="Urine glucose detection by automated test strip" /> <statusCode code="completed" /> <effectiveTime value="013592839360 " /> <value unit="" xsi:type="PQ" value="NEGATIVE" /> < referenceRange> <observationRange> <text>NEGATIVE</text > </observationRange> </referenceRange> </observation > </component> <component> <observation moodCode="EVN" classCode="OBS"> <templateId root="16.840.1.251996.10..22.4.2" /> <id nullFlavor="NA" /> <code codeSystem="local" code="76377-5 " displayName="Erythrocytes detection in urine sediment by light microscopy" /> <statusCode code="completed" /> <effectiveTime value= "935043017055" /> <value unit="" xsi:type="PQ" value="NEGATIVE" /> <referenceRange> <observationRange> <text>NEGATIVE </text> </observationRange> </referenceRange> </ observation> </component> <component> <observation moodCode= "EVN" classCode="OBS"> <templateId root="216.840.1.146102.10.2022.4.2 " /> <id nullFlavor="NA" /> <code codeSystem="local" code= "93933-0" displayName="Urine ketones detection by automated test strip" /> <statusCode code="completed" /> <effectiveTime value="302413841246 " /> <value unit="" xsi:type="PQ" value="1+" /> < interpretationCode codeSystem="local" code="*" /> <referenceRange> <observationRange> <text>NEGATIVE</text> </ observationRange> </referenceRange> </observation> </ component> <component> <observation moodCode="EVN" classCode="OBS"> <templateId root="05.27.840.1.134642.1022.4.2" /> <id nullFlavor="NA" /> <code codeSystem="local" code="5802-4" displayName= "Urine nitrite detection by test strip" /> <statusCode code="completed " /> <effectiveTime value="673044173270" /> <value unit="" xsi :type="PQ" value="NEGATIVE" /> <referenceRange> < observationRange> <text>NEGATIVE</text> </ observationRange> </referenceRange> </observation> </ component> <component> <observation moodCode="EVN" classCode="OBS"> <templateId root="216.840.1.302547.10.20.22.4.2" /> <id nullFlavor="NA" /> <code codeSystem="local" code="5770-3" displayName= "Urine total bilirubin detection by test strip" /> <statusCode code= "completed" /> <effectiveTime value="178849961458" /> <value unit="" xsi:type="PQ" value="NEGATIVE" /> <referenceRange> < observationRange> <text>NEGATIVE</text> </ observationRange> </referenceRange> </observation> </ component> <component> <observation moodCode="EVN" classCode="OBS"> <templateId root="2.16.840.1.943763.10.20.22.4.2" /> <id nullFlavor="NA" /> <code codeSystem="local" code="16420-0" displayName= "Urine urobilinogen measurement by automated test strip (mass/volume)" /> <statusCode code="completed" /> <effectiveTime value="491785629328 " /> <value unit="" xsi:type="PQ" value="NORMAL" /> < referenceRange> <observationRange> <text>NORMAL</text> </observationRange> </referenceRange> </observation> </component> <component> <observation moodCode="EVN" classCode ="OBS"> <templateId root="2.16.840.1.376365.10.20.22.4.2" /> < id nullFlavor="NA" /> <code codeSystem="local" code="5799-2" displayName="Urine leukocyte esterase detection by dipstick" /> < statusCode code="completed" /> <effectiveTime value="001642447633" /> <value unit="" xsi:type="PQ" value="1+" /> < interpretationCode codeSystem="local" code="*" /> <referenceRange> <observationRange> <text>NEGATIVE</text> </ observationRange> </referenceRange> </observation> </ component> <component> <observation moodCode="EVN" classCode="OBS"> <templateId root="216.840.1.421281.10..22.4.2" /> <id nullFlavor="NA" /> <code codeSystem="local" code="97256-1" displayName= "Automated urine sediment erythrocyte count by microscopy (number/high power field)" /> <statusCode code="completed" /> <effectiveTime value="604808724302" /> <value unit="" xsi:type="PQ" value="NONE" /> <referenceRange> <observationRange> <text>NRG</ text> </observationRange> </referenceRange> </ observation> </component> <component> <observation moodCode= "EVN" classCode="OBS"> <templateId root="216.840.1.282419.10..4.2 " /> <id nullFlavor="NA" /> <code codeSystem="local" code= "5821-4" displayName="Automated urine sediment leukocyte count by microscopy ( number/high power field)" /> <statusCode code="completed" /> < effectiveTime value="317553739565" /> <value unit="[HPF]" xsi:type="PQ " value="" /> <referenceRange> <observationRange> <text>NRG</text> </observationRange> </referenceRange> </observation> </component> <component> <observation moodCode="EVN" classCode="OBS"> <templateId root= "216.840.1.300865.10..22.4.2" /> <id nullFlavor="NA" /> < code codeSystem="local" code="32979-3" displayName="Bacteria detection in urine sediment by light microscopy" /> <statusCode code="completed" /> <effectiveTime value="974698320919" /> <value unit="" xsi:type="PQ " value="TRACE" /> <referenceRange> <observationRange> <text>NRG</text> </observationRange> </ referenceRange> </observation> </component> <component> <observation moodCode="EVN" classCode="OBS"> <templateId root= "05.27.840.1.559823.10.20.22.4.2" /> <id nullFlavor="NA" /> < code codeSystem="local" code="68194-3" displayName="Squamous epithelial cells detection in urine sediment by light microscopy" /> <statusCode code= "completed" /> <effectiveTime value="754680584272" /> <value unit="" xsi:type="PQ" value="5-10" /> <referenceRange> < observationRange> <text>NRG</text> </observationRange> </referenceRange> </observation> </component> < component> <observation moodCode="EVN" classCode="OBS"> < templateId root="840.1.628999.10.20.22.4.2" /> <id nullFlavor="NA " /> <code codeSystem="local" code="28110-5" displayName="Crystals detection in urine sediment by light microscopy" /> <statusCode code= "completed" /> <effectiveTime value="622173484957" /> <value unit="" xsi:type="PQ" value="NONE" /> <referenceRange> < observationRange> <text>NRG</text> </observationRange> </referenceRange> </observation> </component> < component> <observation moodCode="EVN" classCode="OBS"> < templateId root="05.27.840.1.309998.10.20.22.4.2" /> <id nullFlavor="NA " /> <code codeSystem="local" code="40067-5" displayName="Casts detection in urine sediment by light microscopy" /> <statusCode code= "completed" /> <effectiveTime value="040048719313" /> <value unit="" xsi:type="PQ" value="NONE" /> <referenceRange> < observationRange> <text>NRG</text> </observationRange> </referenceRange> </observation> </component> < component> <observation moodCode="EVN" classCode="OBS"> < templateId root="216.840.1.971748.10.20.22.4.2" /> <id nullFlavor="NA " /> <code codeSystem="local" code="8247-9" displayName="Mucus detection in urine sediment by light microscopy" /> <statusCode code= "completed" /> <effectiveTime value="123808069576" /> <value unit="" xsi:type="PQ" value="SMALL" /> <interpretationCode codeSystem= "local" code="*" /> <referenceRange> <observationRange> <text>NRG</text> </observationRange> </ referenceRange> </observation> </component> <component> <observation moodCode="EVN" classCode="OBS"> <templateId root= "216.840.1.759201.10.20.22.4.2" /> <id nullFlavor="NA" /> < code codeSystem="local" code="51390-8" displayName="Complete urinalysis with reflex to culture" /> <statusCode code="completed" /> < effectiveTime value="290232976989" /> <value unit="" xsi:type="PQ" value="NO" /> <referenceRange> <observationRange> <text>NRG</text> </observationRange> </referenceRange> </observation> </component> </organizer> </entry> <entry> < organizer moodCode="EVN" classCode="BATTERY"> <templateId root= "216.840.1.258236.10..22.4.1" /> <id nullFlavor="NA" /> <code codeSystem="local" code="34607-7" displayName="Urine drug screening test" /> <statusCode code="completed" /> <component> <observation moodCode ="EVN" classCode="OBS"> <templateId root= "05.27.840.1.382772.01.28.22.4.2" /> <id nullFlavor="NA" /> < code codeSystem="local" code="09019-3" displayName="Urine phencyclidine detection by screening method" /> <statusCode code="completed" /> <effectiveTime value="334843583898" /> <value unit="" xsi:type="PQ " value="NEGATIVE" /> <referenceRange> <observationRange> <text>NEGATIVE</text> </observationRange> </ referenceRange> </observation> </component> <component> <observation moodCode="EVN" classCode="OBS"> <templateId root= "05.27.840.1.553584.10..4.2" /> <id nullFlavor="NA" /> < code codeSystem="local" code="52089-4" displayName="Urine benzodiazepines detection by screening method" /> <statusCode code="completed" /> <effectiveTime value="544823286120" /> <value unit="" xsi:type="PQ " value="NEGATIVE" /> <referenceRange> <observationRange> <text>NEGATIVE</text> </observationRange> </ referenceRange> </observation> </component> <component> <observation moodCode="EVN" classCode="OBS"> <templateId root= "216.840.1.768709.10..4.2" /> <id nullFlavor="NA" /> < code codeSystem="local" code="3397-7" displayName="Urine cocaine detection" /> <statusCode code="completed" /> <effectiveTime value= "642541983528" /> <value unit="" xsi:type="PQ" value="NEGATIVE" /> <referenceRange> <observationRange> <text>NEGATIVE </text> </observationRange> </referenceRange> </ observation> </component> <component> <observation moodCode= "EVN" classCode="OBS"> <templateId root="16.840.1.351532.10.20.22.4.2 " /> <id nullFlavor="NA" /> <code codeSystem="local" code= "08320-5" displayName="Urine amphetamines detection by screening method" /> <statusCode code="completed" /> <effectiveTime value= "594760429517" /> <value unit="" xsi:type="PQ" value="NEGATIVE" /> <referenceRange> <observationRange> <text>NEGATIVE </text> </observationRange> </referenceRange> </ observation> </component> <component> <observation moodCode= "EVN" classCode="OBS"> <templateId root="16.840.1.629405.10.20.22.4.2 " /> <id nullFlavor="NA" /> <code codeSystem="local" code= "43509-3" displayName="Urine methamphetamine detection by screening method" /> <statusCode code="completed" /> <effectiveTime value= "133299952480" /> <value unit="" xsi:type="PQ" value="NEGATIVE" /> <referenceRange> <observationRange> <text>NEGATIVE </text> </observationRange> </referenceRange> </ observation> </component> <component> <observation moodCode= "EVN" classCode="OBS"> <templateId root="05.27.840.1.194895.10..22.4.2 " /> <id nullFlavor="NA" /> <code codeSystem="local" code= "01459-2" displayName="Urine cannabinoids detection by screening method" /> <statusCode code="completed" /> <effectiveTime value= "978264531778" /> <value unit="" xsi:type="PQ" value="NEGATIVE" /> <referenceRange> <observationRange> <text>NEGATIVE </text> </observationRange> </referenceRange> </ observation> </component> <component> <observation moodCode= "EVN" classCode="OBS"> <templateId root="2.16.840.1.020851.10..4.2 " /> <id nullFlavor="NA" /> <code codeSystem="local" code= "16231-8" displayName="Urine opiates detection by screening method" /> <statusCode code="completed" /> <effectiveTime value="537028817277" /> <value unit="" xsi:type="PQ" value="NEGATIVE" /> < referenceRange> <observationRange> <text>NEGATIVE</text > </observationRange> </referenceRange> </observation > </component> <component> <observation moodCode="EVN" classCode="OBS"> <templateId root="216.840.1.432873.10..22.4.2" /> <id nullFlavor="NA" /> <code codeSystem="local" code="3377-9" displayName="Urine barbiturates detection" /> <statusCode code= "completed" /> <effectiveTime value="383964505233" /> <value unit="" xsi:type="PQ" value="NEGATIVE" /> <referenceRange> < observationRange> <text>NEGATIVE</text> </ observationRange> </referenceRange> </observation> </ component> <component> <observation moodCode="EVN" classCode="OBS"> <templateId root="2.16.840.1.023751.10..22.4.2" /> <id nullFlavor="NA" /> <code codeSystem="local" code="90393-3" displayName= "Screening urine tricyclic antidepressants detection" /> <statusCode code="completed" /> <effectiveTime value="" /> < value unit="" xsi:type="PQ" value="NEGATIVE" /> <referenceRange> <observationRange> <text>NEGATIVE</text> </ observationRange> </referenceRange> </observation> </ component> <component> <observation moodCode="EVN" classCode="OBS"> <templateId root="216.840.1.830656.10...4.2" /> <id nullFlavor="NA" /> <code codeSystem="local" code="39872-4" displayName= "Urine methadone detection by screening method" /> <statusCode code= "completed" /> <effectiveTime value="" /> <value unit="" xsi:type="PQ" value="NEGATIVE" /> <referenceRange> < observationRange> <text>NEGATIVE</text> </ observationRange> </referenceRange> </observation> </ component> <component> <observation moodCode="EVN" classCode="OBS"> <templateId root="216.840.1.557141.10..22.4.2" /> <id nullFlavor="NA" /> <code codeSystem="local" code="74655-6" displayName= "Urine oxycodone detection" /> <statusCode code="completed" /> <effectiveTime value="799214961582" /> <value unit="" xsi:type="PQ" value="NEGATIVE" /> <referenceRange> <observationRange> <text>NEGATIVE</text> </observationRange> </ referenceRange> </observation> </component> <component> <observation moodCode="EVN" classCode="OBS"> <templateId root= "216.840.1.299131.10.20.22.4.2" /> <id nullFlavor="NA" /> < code codeSystem="local" code="76522-6" displayName="Urine propoxyphene detection " /> <statusCode code="completed" /> <effectiveTime value= "486551000929" /> <value unit="" xsi:type="PQ" value="NEGATIVE" /> <referenceRange> <observationRange> <text>NEGATIVE </text> </observationRange> </referenceRange> </ observation> </component> </organizer> </entry> <entry> <organizer moodCode="EVN" classCode="BATTERY"> <templateId root= "216.840.1.663614.10.20.22.4.1" /> <id nullFlavor="NA" /> <code codeSystem="local" code="25717-4" displayName="Complete urinalysis with reflex to culture" /> <statusCode code="completed" /> <component> < observation moodCode="EVN" classCode="OBS"> <templateId root= "16.840.1.363418.10.20.22.4.2" /> <id nullFlavor="NA" /> < code codeSystem="local" code="5778-6" displayName="Urine color determination" / > <statusCode code="completed" /> <effectiveTime value= "204509124452" /> <value unit="" xsi:type="PQ" value="YELLOW" /> <referenceRange> <observationRange> <text>NRG</text > </observationRange> </referenceRange> </observation > </component> <component> <observation moodCode="EVN" classCode="OBS"> <templateId root="2.16.840.1.575571.10.20.22.4.2" /> <id nullFlavor="NA" /> <code codeSystem="local" code="35813-0 " displayName="Urine clarity determination" /> <statusCode code= "completed" /> <effectiveTime value="523051055457" /> <value unit="" xsi:type="PQ" value="CLEAR" /> <referenceRange> < observationRange> <text>NRG</text> </observationRange> </referenceRange> </observation> </component> < component> <observation moodCode="EVN" classCode="OBS"> < templateId root="2.16.840.1.435670.10..22.4.2" /> <id nullFlavor="NA " /> <code codeSystem="local" code="5803-2" displayName="Urine pH measurement by test strip" /> <statusCode code="completed" /> <effectiveTime value="090990589157" /> <value unit="" xsi:type="PQ" value="6.5" /> <referenceRange> <observationRange> <text>5-9</text> </observationRange> </referenceRange> </observation> </component> <component> <observation moodCode="EVN" classCode="OBS"> <templateId root= "216.840.1.860943.10.20.22.4.2" /> <id nullFlavor="NA" /> < code codeSystem="local" code="5811-5" displayName="Specific gravity of urine by test strip" /> <statusCode code="completed" /> <effectiveTime value="220134659370" /> <value unit="" xsi:type="PQ" value="1.020" /> <referenceRange> <observationRange> <text>1.016 -1.022</text> </observationRange> </referenceRange> < /observation> </component> <component> <observation moodCode= "EVN" classCode="OBS"> <templateId root="05.27.840.1.151738.10.20.22.4.2 " /> <id nullFlavor="NA" /> <code codeSystem="local" code= "66727-7" displayName="Urine protein assay by test strip, semi-quantitative" /> <statusCode code="completed" /> <effectiveTime value= "786802057502" /> <value unit="" xsi:type="PQ" value="2+" /> < interpretationCode codeSystem="local" code="*" /> <referenceRange> <observationRange> <text>NEGATIVE</text> </ observationRange> </referenceRange> </observation> </ component> <component> <observation moodCode="EVN" classCode="OBS"> <templateId root="840.1.151225.10.2022.4.2" /> <id nullFlavor="NA" /> <code codeSystem="local" code="01879-3" displayName= "Urine glucose detection by automated test strip" /> <statusCode code= "completed" /> <effectiveTime value="536667189071" /> <value unit="" xsi:type="PQ" value="NEGATIVE" /> <referenceRange> < observationRange> <text>NEGATIVE</text> </ observationRange> </referenceRange> </observation> </ component> <component> <observation moodCode="EVN" classCode="OBS"> <templateId root="05.27.840.1.669570.10.20.22.4.2" /> <id nullFlavor="NA" /> <code codeSystem="local" code="74306-5" displayName= "Erythrocytes detection in urine sediment by light microscopy" /> < statusCode code="completed" /> <effectiveTime value="229931812392" /> <value unit="" xsi:type="PQ" value="3+" /> < interpretationCode codeSystem="local" code="*" /> <referenceRange> <observationRange> <text>NEGATIVE</text> </ observationRange> </referenceRange> </observation> </ component> <component> <observation moodCode="EVN" classCode="OBS"> <templateId root="216.840.1.127271.10..22.4.2" /> <id nullFlavor="NA" /> <code codeSystem="local" code="49741-4" displayName= "Urine ketones detection by automated test strip" /> <statusCode code= "completed" /> <effectiveTime value="162946448895" /> <value unit="" xsi:type="PQ" value="NEGATIVE" /> <referenceRange> < observationRange> <text>NEGATIVE</text> </ observationRange> </referenceRange> </observation> </ component> <component> <observation moodCode="EVN" classCode="OBS"> <templateId root="16.840.1.905419.10.20.22.4.2" /> <id nullFlavor="NA" /> <code codeSystem="local" code="5802-4" displayName= "Urine nitrite detection by test strip" /> <statusCode code="completed " /> <effectiveTime value="403256110144" /> <value unit="" xsi :type="PQ" value="NEGATIVE" /> <referenceRange> < observationRange> <text>NEGATIVE</text> </ observationRange> </referenceRange> </observation> </ component> <component> <observation moodCode="EVN" classCode="OBS"> <templateId root="16.840.1.010785.10.22.4.2" /> <id nullFlavor="NA" /> <code codeSystem="local" code="5770-3" displayName= "Urine total bilirubin detection by test strip" /> <statusCode code= "completed" /> <effectiveTime value="601224354833" /> <value unit="" xsi:type="PQ" value="NEGATIVE" /> <referenceRange> < observationRange> <text>NEGATIVE</text> </ observationRange> </referenceRange> </observation> </ component> <component> <observation moodCode="EVN" classCode="OBS"> <templateId root="16.840.1.459293.10.4.2" /> <id nullFlavor="NA" /> <code codeSystem="local" code="42564-0" displayName= "Urine urobilinogen measurement by automated test strip (mass/volume)" /> <statusCode code="completed" /> <effectiveTime value="505699879449 " /> <value unit="mg/dL" xsi:type="PQ" value="4" /> < interpretationCode codeSystem="local" code="*" /> <referenceRange> <observationRange> <text>NORMAL</text> </ observationRange> </referenceRange> </observation> </ component> <component> <observation moodCode="EVN" classCode="OBS"> <templateId root="16.840.1.911253.10..4.2" /> <id nullFlavor="NA" /> <code codeSystem="local" code="5799-2" displayName= "Urine leukocyte esterase detection by dipstick" /> <statusCode code= "completed" /> <effectiveTime value="268025546646" /> <value unit="" xsi:type="PQ" value="1+" /> <interpretationCode codeSystem= "local" code="*" /> <referenceRange> <observationRange> <text>NEGATIVE</text> </observationRange> </ referenceRange> </observation> </component> <component> <observation moodCode="EVN" classCode="OBS"> <templateId root= "05.27.840.1.083401.10.20.22.4.2" /> <id nullFlavor="NA" /> < code codeSystem="local" code="32734-2" displayName="Automated urine sediment erythrocyte count by microscopy (number/high power field)" /> < statusCode code="completed" /> <effectiveTime value="853046370467" /> <value unit="[HPF]" xsi:type="PQ" value="" /> <referenceRange > <observationRange> <text>NRG</text> </ observationRange> </referenceRange> </observation> </ component> <component> <observation moodCode="EVN" classCode="OBS"> <templateId root="840.1.858707.10.2022.4.2" /> <id nullFlavor="NA" /> <code codeSystem="local" code="5821-4" displayName= "Automated urine sediment leukocyte count by microscopy (number/high power field )" /> <statusCode code="completed" /> <effectiveTime value= "178326158348" /> <value unit="" xsi:type="PQ" value="RARE" /> <referenceRange> <observationRange> <text>NRG</text> </observationRange> </referenceRange> </observation> </component> <component> <observation moodCode="EVN" classCode ="OBS"> <templateId root="05.27.840.1.124915.10.20.22.4.2" /> < id nullFlavor="NA" /> <code codeSystem="local" code="16893-3" displayName="Bacteria detection in urine sediment by light microscopy" /> <statusCode code="completed" /> <effectiveTime value="664551678295 " /> <value unit="" xsi:type="PQ" value="TRACE" /> < referenceRange> <observationRange> <text>NRG</text> </observationRange> </referenceRange> </observation> </component> <component> <observation moodCode="EVN" classCode= "OBS"> <templateId root="05.27.840.1.650739.10.20.22.4.2" /> < id nullFlavor="NA" /> <code codeSystem="local" code="26887-5" displayName="Squamous epithelial cells detection in urine sediment by light microscopy" /> <statusCode code="completed" /> <effectiveTime value="996821373174" /> <value unit="" xsi:type="PQ" value="10-25" /> <interpretationCode codeSystem="local" code="*" /> < referenceRange> <observationRange> <text>NRG</text> </observationRange> </referenceRange> </observation> </component> <component> <observation moodCode="EVN" classCode= "OBS"> <templateId root="05.27.840.1.509363.10.20.22.4.2" /> < id nullFlavor="NA" /> <code codeSystem="local" code="00678-3" displayName="Crystals detection in urine sediment by light microscopy" /> <statusCode code="completed" /> <effectiveTime value="659496041039 " /> <value unit="" xsi:type="PQ" value="NONE" /> < referenceRange> <observationRange> <text>NRG</text> </observationRange> </referenceRange> </observation> </component> <component> <observation moodCode="EVN" classCode= "OBS"> <templateId root="840.1.068568.10..22.4.2" /> < id nullFlavor="NA" /> <code codeSystem="local" code="03567-4" displayName="Casts detection in urine sediment by light microscopy" /> <statusCode code="completed" /> <effectiveTime value="776100422431" /> <value unit="" xsi:type="PQ" value="NONE" /> <referenceRange > <observationRange> <text>NRG</text> </ observationRange> </referenceRange> </observation> </ component> <component> <observation moodCode="EVN" classCode="OBS"> <templateId root="16.840.1.575346.10..22.4.2" /> <id nullFlavor="NA" /> <code codeSystem="local" code="8247-9" displayName= "Mucus detection in urine sediment by light microscopy" /> <statusCode code="completed" /> <effectiveTime value="073818923368" /> < value unit="" xsi:type="PQ" value="SMALL" /> <interpretationCode codeSystem="local" code="*" /> <referenceRange> < observationRange> <text>NRG</text> </observationRange> </referenceRange> </observation> </component> < component> <observation moodCode="EVN" classCode="OBS"> < templateId root="16.840.1.627238.10.20.22.4.2" /> <id nullFlavor="NA " /> <code codeSystem="local" code="26470-9" displayName="Complete urinalysis with reflex to culture" /> <statusCode code="completed" /> <effectiveTime value="628364919387" /> <value unit="" xsi:type ="PQ" value="NO" /> <referenceRange> <observationRange> <text>NRG</text> </observationRange> </ referenceRange> </observation> </component> </organizer> </entry > <entry> <organizer moodCode="EVN" classCode="BATTERY"> <templateId root="05.27.840.1.045621.10..22.4.1" /> <id nullFlavor="NA" /> <code codeSystem="local" code="23252-0" displayName="Chlamydia trachomatis DNA detection by probe and signal amplification method" /> <statusCode code= "completed" /> <component> <observation moodCode="EVN" classCode= "OBS"> <templateId root="05.27.840.1.882239.10..22.4.2" /> < id nullFlavor="NA" /> <code codeSystem="local" code="04997-2" displayName="Chlamydia trachomatis DNA detection by probe and target amplification method" /> <statusCode code="completed" /> < effectiveTime value="661373230937" /> <value unit="" xsi:type="PQ" value="Not Detected" /> <referenceRange> <observationRange> <text>Not Detected</text> </observationRange> </referenceRange> </observation> </component> </organizer> </ entry> <entry> <organizer moodCode="EVN" classCode="BATTERY"> < templateId root="05.27.840.1.337189.10..22.4.1" /> <id nullFlavor="NA" /> <code codeSystem="local" code="42017-4" displayName="Neisseria gonorrhoeae DNA detection by probe and signal amplification method" /> < statusCode code="completed" /> <component> <observation moodCode= "EVN" classCode="OBS"> <templateId root="05.27.840.1.637690.10..22.4.2 " /> <id nullFlavor="NA" /> <code codeSystem="local" code= "45010-4" displayName="Gonorrhea amp DNA-urine" /> <statusCode code= "completed" /> <effectiveTime value="" /> <value unit="" xsi:type="PQ" value="Not Detected" /> <referenceRange> <observationRange> <text>Not Detected</text> </ observationRange> </referenceRange> </observation> </ component> </organizer> </entry> <entry> <organizer moodCode="EVN" classCode="BATTERY"> <templateId root="216.840.1.463036.10..22.4.1" /> <id nullFlavor="NA" /> <code codeSystem="local" code="87164-1" displayName="Bacteria identification in genital specimen by aerobe culture" /> <statusCode code="completed" /> <component> <observation moodCode="EVN" classCode="OBS"> <templateId root= "216.840.1.060382.10..22.4.2" /> <id nullFlavor="NA" /> < code codeSystem="local" code="FTEXTERNAL" displayName="FREE TEXT EXTERNAL" /> <statusCode code="completed" /> <effectiveTime value= "" /> <value unit="" xsi:type="PQ" value="PLUS NORMAL NYA " /> <referenceRange> <observationRange> <text> NRG</text> </observationRange> </referenceRange> </ observation> </component> <component> <observation moodCode= "EVN" classCode="OBS"> <templateId root="216.840.1.059462.10..22.4.2 " /> <id nullFlavor="NA" /> <code codeSystem="local" code="G" displayName="QUANTITY OF GROWTH" /> <statusCode code="completed" /> <effectiveTime value="" /> <value unit="" xsi:type= "PQ" value="Moderate Growth" /> <referenceRange> < observationRange> <text>NRG</text> </observationRange> </referenceRange> </observation> </component> < component> <observation moodCode="EVN" classCode="OBS"> < templateId root="05.27.840.1.289514.10.4.2" /> <id nullFlavor="NA " /> <code codeSystem="local" code="92344-4" displayName="Bacteria identification in genital specimen by aerobe culture" /> <statusCode code="completed" /> <effectiveTime value="" /> < value unit="" xsi:type="PQ" value="53505322" /> <referenceRange> <observationRange> <text>NRG</text> </ observationRange> </referenceRange> </observation> </ component> </organizer> </entry> <entry> <organizer moodCode="EVN" classCode="BATTERY"> <templateId root="05.27.840.1.222493.10..4.1" /> <id nullFlavor="NA" /> <code codeSystem="local" code="667-6" displayName="Microscopic examination by OLGA preparation" /> <statusCode code="completed" /> <component> <observation moodCode="EVN" classCode="OBS"> <templateId root="05.27.840.1.238335.10..4.2" /> <id nullFlavor="NA" /> <code codeSystem="local" code="667-6" displayName="Microscopic examination by OLGA preparation" /> < statusCode code="completed" /> <effectiveTime value="263365558816" /> <value unit="" xsi:type="PQ" value="TNP" /> <referenceRange> <observationRange> <text>NRG</text> </ observationRange> </referenceRange> </observation> </ component> </organizer> </entry> <entry> <organizer moodCode="EVN" classCode="BATTERY"> <templateId root="840.1.575648.10..22.4.1" /> <id nullFlavor="NA" /> <code codeSystem="local" code="680-9" displayName="Microscopic examination by wet preparation" /> <statusCode code="completed" /> <component> <observation moodCode="EVN" classCode="OBS"> <templateId root="05.27.840.1.650140.10..22.4.2" /> <id nullFlavor="NA" /> <code codeSystem="local" code= "WETRESULT" displayName="WET PREP RESULTS" /> <statusCode code= "completed" /> <effectiveTime value="338248299090" /> <value unit="" xsi:type="PQ" value="03-15-17/" /> <referenceRange> <observationRange> <text>NRG</text> </observationRange > </referenceRange> </observation> </component> </ organizer> </entry> <entry> <organizer moodCode="EVN" classCode="BATTERY"> <templateId root="05.27.840.1.071278.10..22.4.1" /> <id nullFlavor= "NA" /> <code codeSystem="local" code="43871-6" displayName="Complete urinalysis with reflex to culture" /> <statusCode code="completed" /> <component> <observation moodCode="EVN" classCode="OBS"> < templateId root="840.1.833970.10..22.4.2" /> <id nullFlavor="NA " /> <code codeSystem="local" code="5778-6" displayName="Urine color determination" /> <statusCode code="completed" /> < effectiveTime value="" /> <value unit="" xsi:type="PQ" value="STRAW" /> <referenceRange> <observationRange> <text>NRG</text> </observationRange> </referenceRange > </observation> </component> <component> <observation moodCode="EVN" classCode="OBS"> <templateId root= "216.840.1.613878.10..4.2" /> <id nullFlavor="NA" /> < code codeSystem="local" code="48906-8" displayName="Urine clarity determination " /> <statusCode code="completed" /> <effectiveTime value= "" /> <value unit="" xsi:type="PQ" value="CLEAR" /> <referenceRange> <observationRange> <text>NRG</text> </observationRange> </referenceRange> </observation > </component> <component> <observation moodCode="EVN" classCode="OBS"> <templateId root="216.840.1.849651.10..22.4.2" /> <id nullFlavor="NA" /> <code codeSystem="local" code="5803-2" displayName="Urine pH measurement by test strip" /> <statusCode code= "completed" /> <effectiveTime value="" /> <value unit="" xsi:type="PQ" value="6" /> <referenceRange> < observationRange> <text>5-9</text> </observationRange> </referenceRange> </observation> </component> < component> <observation moodCode="EVN" classCode="OBS"> < templateId root="216.840.1.073055.10..4.2" /> <id nullFlavor="NA " /> <code codeSystem="local" code="5811-5" displayName="Specific gravity of urine by test strip" /> <statusCode code="completed" /> <effectiveTime value="" /> <value unit="" xsi:type= "PQ" value="1.005" /> <interpretationCode codeSystem="local" code="" /> <referenceRange> <observationRange> <text> 1.016-1.022</text> </observationRange> </referenceRange> </observation> </component> <component> <observation moodCode="EVN" classCode="OBS"> <templateId root= "05.27.840.1.575188.01.28.22.4.2" /> <id nullFlavor="NA" /> < code codeSystem="local" code="38068-9" displayName="Urine protein assay by test strip, semi-quantitative" /> <statusCode code="completed" /> < effectiveTime value="" /> <value unit="" xsi:type="PQ" value="NEGATIVE" /> <referenceRange> <observationRange> <text>NEGATIVE</text> </observationRange> </ referenceRange> </observation> </component> <component> <observation moodCode="EVN" classCode="OBS"> <templateId root= "16.840.1.671659.10..4.2" /> <id nullFlavor="NA" /> < code codeSystem="local" code="54689-3" displayName="Urine glucose detection by automated test strip" /> <statusCode code="completed" /> < effectiveTime value="" /> <value unit="" xsi:type="PQ" value="NEGATIVE" /> <referenceRange> <observationRange> <text>NEGATIVE</text> </observationRange> </ referenceRange> </observation> </component> <component> <observation moodCode="EVN" classCode="OBS"> <templateId root= "216.840.1.417257.10.2022.4.2" /> <id nullFlavor="NA" /> < code codeSystem="local" code="66783-7" displayName="Erythrocytes detection in urine sediment by light microscopy" /> <statusCode code="completed" /> <effectiveTime value="" /> <value unit="" xsi: type="PQ" value="NEGATIVE" /> <referenceRange> < observationRange> <text>NEGATIVE</text> </ observationRange> </referenceRange> </observation> </ component> <component> <observation moodCode="EVN" classCode="OBS"> <templateId root="05.27.840.1.520167.10.22.4.2" /> <id nullFlavor="NA" /> <code codeSystem="local" code="30297-7" displayName= "Urine ketones detection by automated test strip" /> <statusCode code= "completed" /> <effectiveTime value="632259102776" /> <value unit="" xsi:type="PQ" value="NEGATIVE" /> <referenceRange> < observationRange> <text>NEGATIVE</text> </ observationRange> </referenceRange> </observation> </ component> <component> <observation moodCode="EVN" classCode="OBS"> <templateId root="05.27.840.1.625168.10.2022.4.2" /> <id nullFlavor="NA" /> <code codeSystem="local" code="5802-4" displayName= "Urine nitrite detection by test strip" /> <statusCode code="completed " /> <effectiveTime value="097554263905" /> <value unit="" xsi :type="PQ" value="NEGATIVE" /> <referenceRange> < observationRange> <text>NEGATIVE</text> </ observationRange> </referenceRange> </observation> </ component> <component> <observation moodCode="EVN" classCode="OBS"> <templateId root="216.840.1.692323.10..22.4.2" /> <id nullFlavor="NA" /> <code codeSystem="local" code="5770-3" displayName= "Urine total bilirubin detection by test strip" /> <statusCode code= "completed" /> <effectiveTime value="654077669505" /> <value unit="" xsi:type="PQ" value="NEGATIVE" /> <referenceRange> < observationRange> <text>NEGATIVE</text> </ observationRange> </referenceRange> </observation> </ component> <component> <observation moodCode="EVN" classCode="OBS"> <templateId root="16.840.1.696515.10..22.4.2" /> <id nullFlavor="NA" /> <code codeSystem="local" code="21543-8" displayName= "Urine urobilinogen measurement by automated test strip (mass/volume)" /> <statusCode code="completed" /> <effectiveTime value="733561955046 " /> <value unit="" xsi:type="PQ" value="NORMAL" /> < referenceRange> <observationRange> <text>NORMAL</text> </observationRange> </referenceRange> </observation> </component> <component> <observation moodCode="EVN" classCode ="OBS"> <templateId root="216.840.1.811177.10..22.4.2" /> < id nullFlavor="NA" /> <code codeSystem="local" code="5799-2" displayName="Urine leukocyte esterase detection by dipstick" /> < statusCode code="completed" /> <effectiveTime value="" /> <value unit="" xsi:type="PQ" value="NEGATIVE" /> < referenceRange> <observationRange> <text>NEGATIVE</text > </observationRange> </referenceRange> </observation > </component> <component> <observation moodCode="EVN" classCode="OBS"> <templateId root="2.16.840.1.968454.10...4.2" /> <id nullFlavor="NA" /> <code codeSystem="local" code="23824-2 " displayName="Automated urine sediment erythrocyte count by microscopy (number/ high power field)" /> <statusCode code="completed" /> < effectiveTime value="" /> <value unit="" xsi:type="PQ" value="NONE" /> <referenceRange> <observationRange> <text>NRG</text> </observationRange> </referenceRange > </observation> </component> <component> <observation moodCode="EVN" classCode="OBS"> <templateId root= "2.16.840.1.760859.10...4.2" /> <id nullFlavor="NA" /> < code codeSystem="local" code="5821-4" displayName="Automated urine sediment leukocyte count by microscopy (number/high power field)" /> < statusCode code="completed" /> <effectiveTime value="" /> <value unit="" xsi:type="PQ" value="NONE" /> <referenceRange> <observationRange> <text>NRG</text> </ observationRange> </referenceRange> </observation> </ component> <component> <observation moodCode="EVN" classCode="OBS"> <templateId root="216.840.1.499098.10..22.4.2" /> <id nullFlavor="NA" /> <code codeSystem="local" code="41072-6" displayName= "Bacteria detection in urine sediment by light microscopy" /> < statusCode code="completed" /> <effectiveTime value="" /> <value unit="" xsi:type="PQ" value="TRACE" /> <referenceRange > <observationRange> <text>NRG</text> </ observationRange> </referenceRange> </observation> </ component> <component> <observation moodCode="EVN" classCode="OBS"> <templateId root="216.840.1.915980.22.4.2" /> <id nullFlavor="NA" /> <code codeSystem="local" code="15412-3" displayName= "Squamous epithelial cells detection in urine sediment by light microscopy" /> <statusCode code="completed" /> <effectiveTime value= "" /> <value unit="" xsi:type="PQ" value="2-5" /> <referenceRange> <observationRange> <text>NRG</text> </observationRange> </referenceRange> </observation> </component> <component> <observation moodCode="EVN" classCode= "OBS"> <templateId root="216.840.1.584630.10.22.4.2" /> < id nullFlavor="NA" /> <code codeSystem="local" code="01938-4" displayName="Crystals detection in urine sediment by light microscopy" /> <statusCode code="completed" /> <effectiveTime value=" " /> <value unit="" xsi:type="PQ" value="NONE" /> < referenceRange> <observationRange> <text>NRG</text> </observationRange> </referenceRange> </observation> </component> <component> <observation moodCode="EVN" classCode= "OBS"> <templateId root="216.840.1.046882.10.20.22.4.2" /> < id nullFlavor="NA" /> <code codeSystem="local" code="23104-6" displayName="Casts detection in urine sediment by light microscopy" /> <statusCode code="completed" /> <effectiveTime value="413728719100" /> <value unit="" xsi:type="PQ" value="NONE" /> <referenceRange > <observationRange> <text>NRG</text> </ observationRange> </referenceRange> </observation> </ component> <component> <observation moodCode="EVN" classCode="OBS"> <templateId root="05.27.840.1.605031.10.2022.4.2" /> <id nullFlavor="NA" /> <code codeSystem="local" code="8247-9" displayName= "Mucus detection in urine sediment by light microscopy" /> <statusCode code="completed" /> <effectiveTime value="230286431490" /> < value unit="" xsi:type="PQ" value="NEGATIVE" /> <referenceRange> <observationRange> <text>NRG</text> </ observationRange> </referenceRange> </observation> </ component> <component> <observation moodCode="EVN" classCode="OBS"> <templateId root="05.27.840.1.357583.10.20.22.4.2" /> <id nullFlavor="NA" /> <code codeSystem="local" code="56698-9" displayName= "Complete urinalysis with reflex to culture" /> <statusCode code= "completed" /> <effectiveTime value="547548993129" /> <value unit="" xsi:type="PQ" value="NO" /> <referenceRange> < observationRange> <text>NRG</text> </observationRange> </referenceRange> </observation> </component> </ organizer> </entry> <entry> <organizer moodCode="EVN" classCode="BATTERY"> <templateId root="216.840.1.479108.10.20.22.4.1" /> <id nullFlavor= "NA" /> <code codeSystem="local" code="25197-1" displayName="Complete blood count (CBC) with automated white blood cell (WBC) differential" /> < statusCode code="completed" /> <component> <observation moodCode= "EVN" classCode="OBS"> <templateId root="216.840.1.801959.10.20.22.4.2 " /> <id nullFlavor="NA" /> <code codeSystem="local" code= "6690-2" displayName="Blood leukocytes automated count (number/volume)" /> <statusCode code="completed" /> <effectiveTime value="980093305610 " /> <value unit="10*3/uL" xsi:type="PQ" value="9.0" /> < referenceRange> <observationRange> <text>4.3-11.0</text > </observationRange> </referenceRange> </observation > </component> <component> <observation moodCode="EVN" classCode="OBS"> <templateId root="16.840.1.547680.10.20.22.4.2" /> <id nullFlavor="NA" /> <code codeSystem="local" code="789-8" displayName="Blood erythrocytes automated count (number/volume)" /> < statusCode code="completed" /> <effectiveTime value="565474220657" /> <value unit="10*6/uL" xsi:type="PQ" value="4.38" /> < referenceRange> <observationRange> <text>4.35-5.85</text > </observationRange> </referenceRange> </observation > </component> <component> <observation moodCode="EVN" classCode="OBS"> <templateId root="2.16.840.1.048784.10.20.22.4.2" /> <id nullFlavor="NA" /> <code codeSystem="local" code="02303-4 " displayName="Venous blood hemoglobin measurement (mass/volume)" /> < statusCode code="completed" /> <effectiveTime value="885670977908" /> <value unit="g/dL" xsi:type="PQ" value="11.8" /> < referenceRange> <observationRange> <text>11.5-16.0</text > </observationRange> </referenceRange> </observation > </component> <component> <observation moodCode="EVN" classCode="OBS"> <templateId root="2.16.840.1.885950.10.20.22.4.2" /> <id nullFlavor="NA" /> <code codeSystem="local" code="77571-0 " displayName="Blood hematocrit (volume fraction)" /> <statusCode code= "completed" /> <effectiveTime value="740922436026" /> <value unit="%" xsi:type="PQ" value="37" /> <referenceRange> < observationRange> <text>35-52</text> </observationRange > </referenceRange> </observation> </component> < component> <observation moodCode="EVN" classCode="OBS"> < templateId root="216.840.1.477044.10.20.22.4.2" /> <id nullFlavor="NA " /> <code codeSystem="local" code="787-2" displayName="Automated erythrocyte mean corpuscular volume" /> <statusCode code="completed" / > <effectiveTime value="" /> <value unit="[foz_us] " xsi:type="PQ" value="84" /> <referenceRange> < observationRange> <text>80-99</text> </observationRange > </referenceRange> </observation> </component> < component> <observation moodCode="EVN" classCode="OBS"> < templateId root="05.27.840.1.505913.10..22.4.2" /> <id nullFlavor="NA " /> <code codeSystem="local" code="785-6" displayName="Automated erythrocyte mean corpuscular hemoglobin (mass per erythrocyte)" /> < statusCode code="completed" /> <effectiveTime value="" /> <value unit="pg" xsi:type="PQ" value="27" /> <referenceRange> <observationRange> <text>25-34</text> </ observationRange> </referenceRange> </observation> </ component> <component> <observation moodCode="EVN" classCode="OBS"> <templateId root="05.27.840.1.658838.10..22.4.2" /> <id nullFlavor="NA" /> <code codeSystem="local" code="786-4" displayName= "Automated erythrocyte mean corpuscular hemoglobin concentration measurement ( mass/volume)" /> <statusCode code="completed" /> < effectiveTime value="" /> <value unit="g/dL" xsi:type="PQ" value="32" /> <referenceRange> <observationRange> <text>32-36</text> </observationRange> </referenceRange > </observation> </component> <component> <observation moodCode="EVN" classCode="OBS"> <templateId root= "216.840.1.545347.10.20.22.4.2" /> <id nullFlavor="NA" /> < code codeSystem="local" code="788-0" displayName="Automated erythrocyte distribution width ratio" /> <statusCode code="completed" /> < effectiveTime value="525832319366" /> <value unit="%" xsi:type="PQ " value="17.6" /> <interpretationCode codeSystem="local" code="" /> <referenceRange> <observationRange> <text>10.0- 14.5</text> </observationRange> </referenceRange> </ observation> </component> <component> <observation moodCode= "EVN" classCode="OBS"> <templateId root="216.840.1.821822...4.2 " /> <id nullFlavor="NA" /> <code codeSystem="local" code="777 -3" displayName="Automated blood platelet count (count/volume)" /> < statusCode code="completed" /> <effectiveTime value="990818322159" /> <value unit="10*3/uL" xsi:type="PQ" value="426" /> < interpretationCode codeSystem="local" code="" /> <referenceRange> <observationRange> <text>130-400</text> </ observationRange> </referenceRange> </observation> </ component> <component> <observation moodCode="EVN" classCode="OBS"> <templateId root="216.840.1.973827..22.4.2" /> <id nullFlavor="NA" /> <code codeSystem="local" code="24448-2" displayName= "Automated blood platelet mean volume measurement" /> <statusCode code= "completed" /> <effectiveTime value="339957667520" /> <value unit="[chi [facility]]" xsi:type="PQ" value="9.9" /> <referenceRange> <observationRange> <text>7.4-10.4</text> </ observationRange> </referenceRange> </observation> </ component> <component> <observation moodCode="EVN" classCode="OBS"> <templateId root="2.16.840.1.348497...4.2" /> <id nullFlavor="NA" /> <code codeSystem="local" code="770-8" displayName= "Automated blood neutrophils/100 leukocytes" /> <statusCode code= "completed" /> <effectiveTime value="280630584820" /> <value unit="%" xsi:type="PQ" value="48" /> <referenceRange> < observationRange> <text>42-75</text> </observationRange > </referenceRange> </observation> </component> < component> <observation moodCode="EVN" classCode="OBS"> < templateId root="2.16.840.1.776274.10..4.2" /> <id nullFlavor="NA " /> <code codeSystem="local" code="736-9" displayName="Automated blood lymphocytes/100 leukocytes" /> <statusCode code="completed" /> <effectiveTime value="226822891462" /> <value unit="%" xsi: type="PQ" value="44" /> <referenceRange> <observationRange> <text>12-44</text> </observationRange> </ referenceRange> </observation> </component> <component> <observation moodCode="EVN" classCode="OBS"> <templateId root= "2.16.840.1.321450.10.20.22.4.2" /> <id nullFlavor="NA" /> < code codeSystem="local" code="24747-8" displayName="Blood monocytes/100 leukocytes" /> <statusCode code="completed" /> <effectiveTime value="383821707643" /> <value unit="%" xsi:type="PQ" value="5" /> <referenceRange> <observationRange> <text>0-12 </text> </observationRange> </referenceRange> </ observation> </component> <component> <observation moodCode= "EVN" classCode="OBS"> <templateId root="216.840.1.945590.10.22.4.2 " /> <id nullFlavor="NA" /> <code codeSystem="local" code="713 -8" displayName="Automated blood eosinophils/100 leukocytes" /> < statusCode code="completed" /> <effectiveTime value="172884766088" /> <value unit="%" xsi:type="PQ" value="2" /> <referenceRange > <observationRange> <text>0-10</text> </ observationRange> </referenceRange> </observation> </ component> <component> <observation moodCode="EVN" classCode="OBS"> <templateId root="2.16.840.1.572461.10.20.22.4.2" /> <id nullFlavor="NA" /> <code codeSystem="local" code="706-2" displayName= "Automated blood basophils/100 leukocytes" /> <statusCode code= "completed" /> <effectiveTime value="" /> <value unit="%" xsi:type="PQ" value="0" /> <referenceRange> < observationRange> <text>0-10</text> </observationRange> </referenceRange> </observation> </component> < component> <observation moodCode="EVN" classCode="OBS"> < templateId root="2.16.840.1.969492.10.20.22.4.2" /> <id nullFlavor="NA " /> <code codeSystem="local" code="751-8" displayName="Blood neutrophils automated count (number/volume)" /> <statusCode code= "completed" /> <effectiveTime value="364313866806" /> <value unit="10*3" xsi:type="PQ" value="4.3" /> <referenceRange> < observationRange> <text>1.8-7.8</text> </ observationRange> </referenceRange> </observation> </ component> <component> <observation moodCode="EVN" classCode="OBS"> <templateId root="216.840.1.645004.10..22.4.2" /> <id nullFlavor="NA" /> <code codeSystem="local" code="731-0" displayName= "Blood lymphocytes automated count (number/volume)" /> <statusCode code ="completed" /> <effectiveTime value="264970332620" /> <value unit="10*3" xsi:type="PQ" value="4.0" /> <referenceRange> < observationRange> <text>1.0-4.0</text> </ observationRange> </referenceRange> </observation> </ component> <component> <observation moodCode="EVN" classCode="OBS"> <templateId root="2.16.840.1.657162.10.20.22.4.2" /> <id nullFlavor="NA" /> <code codeSystem="local" code="742-7" displayName= "Blood monocytes automated count (number/volume)" /> <statusCode code= "completed" /> <effectiveTime value="479682672842" /> <value unit="10*3" xsi:type="PQ" value="0.5" /> <referenceRange> < observationRange> <text>0.0-1.0</text> </ observationRange> </referenceRange> </observation> </ component> <component> <observation moodCode="EVN" classCode="OBS"> <templateId root="2.16.840.1.924634.10...4.2" /> <id nullFlavor="NA" /> <code codeSystem="local" code="711-2" displayName= "Automated eosinophil count" /> <statusCode code="completed" /> <effectiveTime value="349013799611" /> <value unit="10*3/uL" xsi: type="PQ" value="0.2" /> <referenceRange> <observationRange > <text>0.0-0.3</text> </observationRange> </ referenceRange> </observation> </component> <component> <observation moodCode="EVN" classCode="OBS"> <templateId root= "2.16.840.1.137582.10...4.2" /> <id nullFlavor="NA" /> < code codeSystem="local" code="704-7" displayName="Automated blood basophil count (count/volume)" /> <statusCode code="completed" /> < effectiveTime value="936727485617" /> <value unit="10*3/uL" xsi:type= "PQ" value="0.0" /> <referenceRange> <observationRange> <text>0.0-0.1</text> </observationRange> </ referenceRange> </observation> </component> </organizer> </entry > <entry> <organizer moodCode="EVN" classCode="BATTERY"> <templateId root="2.16.840.1.763417.10..22.4.1" /> <id nullFlavor="NA" /> <code codeSystem="local" code="79784-0" displayName="Complete urinalysis with reflex to culture" /> <statusCode code="completed" /> <component> < observation moodCode="EVN" classCode="OBS"> <templateId root= "216.840.1.008189.10...4.2" /> <id nullFlavor="NA" /> < code codeSystem="local" code="5778-6" displayName="Urine color determination" / > <statusCode code="completed" /> <effectiveTime value= "" /> <value unit="" xsi:type="PQ" value="YELLOW" /> <referenceRange> <observationRange> <text>NRG</text > </observationRange> </referenceRange> </observation > </component> <component> <observation moodCode="EVN" classCode="OBS"> <templateId root="216.840.1.868467.10..22.4.2" /> <id nullFlavor="NA" /> <code codeSystem="local" code="40001-0 " displayName="Urine clarity determination" /> <statusCode code= "completed" /> <effectiveTime value="" /> <value unit="" xsi:type="PQ" value="CLEAR" /> <referenceRange> < observationRange> <text>NRG</text> </observationRange> </referenceRange> </observation> </component> < component> <observation moodCode="EVN" classCode="OBS"> < templateId root="16.840.1.808739.10.20.22.4.2" /> <id nullFlavor="NA " /> <code codeSystem="local" code="5803-2" displayName="Urine pH measurement by test strip" /> <statusCode code="completed" /> <effectiveTime value="" /> <value unit="" xsi:type="PQ" value="7" /> <referenceRange> <observationRange> <text>5-9</text> </observationRange> </referenceRange> </observation> </component> <component> <observation moodCode="EVN" classCode="OBS"> <templateId root= "05.27.840.1.517450.10.22.4.2" /> <id nullFlavor="NA" /> < code codeSystem="local" code="5811-5" displayName="Specific gravity of urine by test strip" /> <statusCode code="completed" /> <effectiveTime value="" /> <value unit="" xsi:type="PQ" value="1.010" /> <interpretationCode codeSystem="local" code="" /> < referenceRange> <observationRange> <text>1.016-1.022</ text> </observationRange> </referenceRange> </ observation> </component> <component> <observation moodCode= "EVN" classCode="OBS"> <templateId root="16.840.1.406487.10.20.22.4.2 " /> <id nullFlavor="NA" /> <code codeSystem="local" code= "42921-6" displayName="Urine protein assay by test strip, semi-quantitative" /> <statusCode code="completed" /> <effectiveTime value= "296067753333" /> <value unit="" xsi:type="PQ" value="1+" /> < interpretationCode codeSystem="local" code="*" /> <referenceRange> <observationRange> <text>NEGATIVE</text> </ observationRange> </referenceRange> </observation> </ component> <component> <observation moodCode="EVN" classCode="OBS"> <templateId root="16.840.1.808743.10.2022.4.2" /> <id nullFlavor="NA" /> <code codeSystem="local" code="65745-2" displayName= "Urine glucose detection by automated test strip" /> <statusCode code= "completed" /> <effectiveTime value="245602918448" /> <value unit="" xsi:type="PQ" value="NEGATIVE" /> <referenceRange> < observationRange> <text>NEGATIVE</text> </ observationRange> </referenceRange> </observation> </ component> <component> <observation moodCode="EVN" classCode="OBS"> <templateId root="840.1.748884.10.22.4.2" /> <id nullFlavor="NA" /> <code codeSystem="local" code="91903-2" displayName= "Erythrocytes detection in urine sediment by light microscopy" /> < statusCode code="completed" /> <effectiveTime value="442659199006" /> <value unit="" xsi:type="PQ" value="NEGATIVE" /> < referenceRange> <observationRange> <text>NEGATIVE</text > </observationRange> </referenceRange> </observation > </component> <component> <observation moodCode="EVN" classCode="OBS"> <templateId root="05.27.840.1.837234.10.2022.4.2" /> <id nullFlavor="NA" /> <code codeSystem="local" code="51047-4 " displayName="Urine ketones detection by automated test strip" /> < statusCode code="completed" /> <effectiveTime value="354049131312" /> <value unit="" xsi:type="PQ" value="1+" /> < interpretationCode codeSystem="local" code="*" /> <referenceRange> <observationRange> <text>NEGATIVE</text> </ observationRange> </referenceRange> </observation> </ component> <component> <observation moodCode="EVN" classCode="OBS"> <templateId root="05.27.840.1.570036.10.20.22.4.2" /> <id nullFlavor="NA" /> <code codeSystem="local" code="5802-4" displayName= "Urine nitrite detection by test strip" /> <statusCode code="completed " /> <effectiveTime value="031736845871" /> <value unit="" xsi :type="PQ" value="NEGATIVE" /> <referenceRange> < observationRange> <text>NEGATIVE</text> </ observationRange> </referenceRange> </observation> </ component> <component> <observation moodCode="EVN" classCode="OBS"> <templateId root="05.27.840.1.490044.10.20.22.4.2" /> <id nullFlavor="NA" /> <code codeSystem="local" code="5770-3" displayName= "Urine total bilirubin detection by test strip" /> <statusCode code= "completed" /> <effectiveTime value="495647160290" /> <value unit="" xsi:type="PQ" value="NEGATIVE" /> <referenceRange> < observationRange> <text>NEGATIVE</text> </ observationRange> </referenceRange> </observation> </ component> <component> <observation moodCode="EVN" classCode="OBS"> <templateId root="05.27.830.1.340854.10.20.22.4.2" /> <id nullFlavor="NA" /> <code codeSystem="local" code="15377-6" displayName= "Urine urobilinogen measurement by automated test strip (mass/volume)" /> <statusCode code="completed" /> <effectiveTime value="259307067472 " /> <value unit="mg/dL" xsi:type="PQ" value="1" /> < referenceRange> <observationRange> <text>NORMAL</text> </observationRange> </referenceRange> </observation> </component> <component> <observation moodCode="EVN" classCode ="OBS"> <templateId root="16.840.1.504259.10.2022.4.2" /> < id nullFlavor="NA" /> <code codeSystem="local" code="5799-2" displayName="Urine leukocyte esterase detection by dipstick" /> < statusCode code="completed" /> <effectiveTime value="651529694739" /> <value unit="" xsi:type="PQ" value="1+" /> < interpretationCode codeSystem="local" code="*" /> <referenceRange> <observationRange> <text>NEGATIVE</text> </ observationRange> </referenceRange> </observation> </ component> <component> <observation moodCode="EVN" classCode="OBS"> <templateId root="16.840.1.732100.10.20.22.4.2" /> <id nullFlavor="NA" /> <code codeSystem="local" code="70868-1" displayName= "Automated urine sediment erythrocyte count by microscopy (number/high power field)" /> <statusCode code="completed" /> <effectiveTime value="262812039145" /> <value unit="" xsi:type="PQ" value="NONE" /> <referenceRange> <observationRange> <text>NRG</ text> </observationRange> </referenceRange> </ observation> </component> <component> <observation moodCode= "EVN" classCode="OBS"> <templateId root="05.27.840.1.081579.10.20.22.4.2 " /> <id nullFlavor="NA" /> <code codeSystem="local" code= "5821-4" displayName="Automated urine sediment leukocyte count by microscopy ( number/high power field)" /> <statusCode code="completed" /> < effectiveTime value="067119717550" /> <value unit="[HPF]" xsi:type="PQ " value="" /> <referenceRange> <observationRange> <text>NRG</text> </observationRange> </referenceRange> </observation> </component> <component> <observation moodCode="EVN" classCode="OBS"> <templateId root= "840.1.928909.10.2022.4.2" /> <id nullFlavor="NA" /> < code codeSystem="local" code="95470-9" displayName="Bacteria detection in urine sediment by light microscopy" /> <statusCode code="completed" /> <effectiveTime value="367494044986" /> <value unit="" xsi:type="PQ " value="NONE" /> <referenceRange> <observationRange> <text>NRG</text> </observationRange> </ referenceRange> </observation> </component> <component> <observation moodCode="EVN" classCode="OBS"> <templateId root= "05.27.840.1.290405.10.20.22.4.2" /> <id nullFlavor="NA" /> < code codeSystem="local" code="83861-5" displayName="Squamous epithelial cells detection in urine sediment by light microscopy" /> <statusCode code= "completed" /> <effectiveTime value="100881595707" /> <value unit="" xsi:type="PQ" value="0-2" /> <referenceRange> < observationRange> <text>NRG</text> </observationRange> </referenceRange> </observation> </component> < component> <observation moodCode="EVN" classCode="OBS"> < templateId root="05.27.840.1.424491.10..4.2" /> <id nullFlavor="NA " /> <code codeSystem="local" code="88969-8" displayName="Crystals detection in urine sediment by light microscopy" /> <statusCode code= "completed" /> <effectiveTime value="219128742563" /> <value unit="" xsi:type="PQ" value="NONE" /> <referenceRange> < observationRange> <text>NRG</text> </observationRange> </referenceRange> </observation> </component> < component> <observation moodCode="EVN" classCode="OBS"> < templateId root="05.27.840.1.500058.10...4.2" /> <id nullFlavor="NA " /> <code codeSystem="local" code="62918-2" displayName="Casts detection in urine sediment by light microscopy" /> <statusCode code= "completed" /> <effectiveTime value="198971047153" /> <value unit="" xsi:type="PQ" value="NONE" /> <referenceRange> < observationRange> <text>NRG</text> </observationRange> </referenceRange> </observation> </component> < component> <observation moodCode="EVN" classCode="OBS"> < templateId root="05.27.840.1.377355.01.28.22.4.2" /> <id nullFlavor="NA " /> <code codeSystem="local" code="8247-9" displayName="Mucus detection in urine sediment by light microscopy" /> <statusCode code= "completed" /> <effectiveTime value="307490268315" /> <value unit="" xsi:type="PQ" value="NEGATIVE" /> <referenceRange> < observationRange> <text>NRG</text> </observationRange> </referenceRange> </observation> </component> < component> <observation moodCode="EVN" classCode="OBS"> < templateId root="840.1.054122.01.28.22.4.2" /> <id nullFlavor="NA " /> <code codeSystem="local" code="84515-8" displayName="Complete urinalysis with reflex to culture" /> <statusCode code="completed" /> <effectiveTime value="058295993209" /> <value unit="" xsi:type ="PQ" value="NO" /> <referenceRange> <observationRange> <text>NRG</text> </observationRange> </ referenceRange> </observation> </component> </organizer> </entry > <entry> <organizer moodCode="EVN" classCode="BATTERY"> <templateId root="840.1.211314.01.28.22.4.1" /> <id nullFlavor="NA" /> <code codeSystem="local" code="89722-2" displayName="Comprehensive metabolic panel" / > <statusCode code="completed" /> <component> <observation moodCode="EVN" classCode="OBS"> <templateId root= "05.27.840.1.121167.1022.4.2" /> <id nullFlavor="NA" /> < code codeSystem="local" code="2951-2" displayName="Serum or plasma sodium measurement (moles/volume)" /> <statusCode code="completed" /> <effectiveTime value="529855611726" /> <value unit="mmol/L" xsi:type= "PQ" value="137" /> <referenceRange> <observationRange> <text>135-145</text> </observationRange> </ referenceRange> </observation> </component> <component> <observation moodCode="EVN" classCode="OBS"> <templateId root= "2.16.840.1.138840.10.20.22.4.2" /> <id nullFlavor="NA" /> < code codeSystem="local" code="2823-3" displayName="Serum or plasma potassium measurement (moles/volume)" /> <statusCode code="completed" /> <effectiveTime value="610522508573" /> <value unit="mmol/L" xsi:type= "PQ" value="3.9" /> <referenceRange> <observationRange> <text>3.6-5.0</text> </observationRange> </ referenceRange> </observation> </component> <component> <observation moodCode="EVN" classCode="OBS"> <templateId root= "2.16.840.1.365387.10.20.22.4.2" /> <id nullFlavor="NA" /> < code codeSystem="local" code="2075-0" displayName="Serum or plasma chloride measurement (moles/volume)" /> <statusCode code="completed" /> <effectiveTime value="760035667662" /> <value unit="mmol/L" xsi:type= "PQ" value="105" /> <referenceRange> <observationRange> <text>98-107</text> </observationRange> </ referenceRange> </observation> </component> <component> <observation moodCode="EVN" classCode="OBS"> <templateId root= "2.16.840.1.927708.10.20.22.4.2" /> <id nullFlavor="NA" /> < code codeSystem="local" code="2027-12" displayName="Carbon dioxide" /> < statusCode code="completed" /> <effectiveTime value="069899563648" /> <value unit="mmol/L" xsi:type="PQ" value="22" /> < referenceRange> <observationRange> <text>21-32</text> </observationRange> </referenceRange> </observation> </component> <component> <observation moodCode="EVN" classCode= "OBS"> <templateId root="216.840.1.744467.10..22.4.2" /> < id nullFlavor="NA" /> <code codeSystem="local" code="06151-4" displayName="Serum or plasma anion gap determination (moles/volume)" /> <statusCode code="completed" /> <effectiveTime value="" / > <value unit="mmol/L" xsi:type="PQ" value="10" /> < referenceRange> <observationRange> <text>5-14</text> </observationRange> </referenceRange> </observation> </component> <component> <observation moodCode="EVN" classCode= "OBS"> <templateId root="16.840.1.112631.10..22.4.2" /> < id nullFlavor="NA" /> <code codeSystem="local" code="3094-0" displayName="Serum or plasma urea nitrogen measurement (mass/volume)" /> <statusCode code="completed" /> <effectiveTime value="637343687812" /> <value unit="mg/dL" xsi:type="PQ" value="9" /> < referenceRange> <observationRange> <text>7-18</text> </observationRange> </referenceRange> </observation> </component> <component> <observation moodCode="EVN" classCode= "OBS"> <templateId root="216.840.1.535234.10.20.22.4.2" /> < id nullFlavor="NA" /> <code codeSystem="local" code="2160-0" displayName="Serum or plasma creatinine measurement (mass/volume)" /> < statusCode code="completed" /> <effectiveTime value="228279711565" /> <value unit="mg/dL" xsi:type="PQ" value="0.82" /> < referenceRange> <observationRange> <text>0.60-1.30</text > </observationRange> </referenceRange> </observation > </component> <component> <observation moodCode="EVN" classCode="OBS"> <templateId root="05.27.840.1.781525.10.20.22.4.2" /> <id nullFlavor="NA" /> <code codeSystem="local" code="3097-3" displayName="Serum or plasma urea nitrogen/creatinine mass ratio" /> < statusCode code="completed" /> <effectiveTime value="232259176045" /> <value unit="" xsi:type="PQ" value="11" /> <referenceRange> <observationRange> <text>NRG</text> </ observationRange> </referenceRange> </observation> </ component> <component> <observation moodCode="EVN" classCode="OBS"> <templateId root="16.840.1.646970.10.20.22.4.2" /> <id nullFlavor="NA" /> <code codeSystem="local" code="44063-5" displayName= "Serum or plasma creatinine measurement with calculation of estimated glomerular filtration rate" /> <statusCode code="completed" /> <effectiveTime value="264504053704" /> <value unit="" xsi:type="PQ" value=">" /> <referenceRange> <observationRange> <text>NRG</text> </observationRange> </referenceRange > </observation> </component> <component> <observation moodCode="EVN" classCode="OBS"> <templateId root= "2.16.840.1.215252.10.20.22.4.2" /> <id nullFlavor="NA" /> < code codeSystem="local" code="2345-7" displayName="Serum or plasma glucose measurement (mass/volume)" /> <statusCode code="completed" /> <effectiveTime value="552325809555" /> <value unit="mg/dL" xsi:type="PQ " value="90" /> <referenceRange> <observationRange> <text>70-105</text> </observationRange> </ referenceRange> </observation> </component> <component> <observation moodCode="EVN" classCode="OBS"> <templateId root= "2.16.840.1.734782.10.20.22.4.2" /> <id nullFlavor="NA" /> < code codeSystem="local" code="40737-5" displayName="Serum or plasma calcium measurement (mass/volume)" /> <statusCode code="completed" /> <effectiveTime value="686003293535" /> <value unit="mg/dL" xsi:type="PQ " value="9.7" /> <referenceRange> <observationRange> <text>8.5-10.1</text> </observationRange> </ referenceRange> </observation> </component> <component> <observation moodCode="EVN" classCode="OBS"> <templateId root= "216.840.1.970874.10.20.22.4.2" /> <id nullFlavor="NA" /> < code codeSystem="local" code="1974-05" displayName="Serum or plasma total bilirubin measurement (mass/volume)" /> <statusCode code="completed" / > <effectiveTime value="005856120504" /> <value unit="mg/dL" xsi:type="PQ" value="0.3" /> <referenceRange> < observationRange> <text>0.1-1.0</text> </ observationRange> </referenceRange> </observation> </ component> <component> <observation moodCode="EVN" classCode="OBS"> <templateId root="16.840.1.034436.10..22.4.2" /> <id nullFlavor="NA" /> <code codeSystem="local" code="6768" displayName= "Serum or plasma alkaline phosphatase measurement (enzymatic activity/volume)" / > <statusCode code="completed" /> <effectiveTime value= "" /> <value unit="U/L" xsi:type="PQ" value="47" /> <referenceRange> <observationRange> <text>40-136</ text> </observationRange> </referenceRange> </ observation> </component> <component> <observation moodCode= "EVN" classCode="OBS"> <templateId root="16.840.1.426010.10.20.22.4.2 " /> <id nullFlavor="NA" /> <code codeSystem="local" code= "1919-11" displayName="Serum or plasma aspartate aminotransferase measurement ( enzymatic activity/volume)" /> <statusCode code="completed" /> <effectiveTime value="" /> <value unit="U/L" xsi:type="PQ " value="13" /> <referenceRange> <observationRange> <text>5-34</text> </observationRange> </referenceRange > </observation> </component> <component> <observation moodCode="EVN" classCode="OBS"> <templateId root= "2.16.840.1.148385.10.20.22.4.2" /> <id nullFlavor="NA" /> < code codeSystem="local" code="1742-6" displayName="Serum or plasma alanine aminotransferase measurement (enzymatic activity/volume)" /> < statusCode code="completed" /> <effectiveTime value="089272711233" /> <value unit="U/L" xsi:type="PQ" value="12" /> <referenceRange > <observationRange> <text>0-55</text> </ observationRange> </referenceRange> </observation> </ component> <component> <observation moodCode="EVN" classCode="OBS"> <templateId root="216.840.1.487152.10..22.4.2" /> <id nullFlavor="NA" /> <code codeSystem="local" code="2885-2" displayName= "Serum or plasma protein measurement (mass/volume)" /> <statusCode code ="completed" /> <effectiveTime value="496214112283" /> <value unit="g/dL" xsi:type="PQ" value="7.6" /> <referenceRange> < observationRange> <text>6.4-8.2</text> </ observationRange> </referenceRange> </observation> </ component> <component> <observation moodCode="EVN" classCode="OBS"> <templateId root="2.16.840.1.569138.10.20.22.4.2" /> <id nullFlavor="NA" /> <code codeSystem="local" code="17504-17" displayName= "Serum or plasma albumin measurement (mass/volume)" /> <statusCode code ="completed" /> <effectiveTime value="941669265632" /> <value unit="g/dL" xsi:type="PQ" value="4.3" /> <referenceRange> < observationRange> <text>3.2-4.5</text> </ observationRange> </referenceRange> </observation> </ component> </organizer> </entry> <entry> <organizer moodCode="EVN" classCode="BATTERY"> <templateId root="2.16.840.1.658201.10.20.22.4.1" /> <id nullFlavor="NA" /> <code codeSystem="local" code="1987-08" displayName="Serum or plasma C reactive protein measurement (mass/volume)" /> <statusCode code="completed" /> <component> <observation moodCode="EVN" classCode="OBS"> <templateId root= "2.16.840.1.821381.10.20.22.4.2" /> <id nullFlavor="NA" /> < code codeSystem="local" code="1987-08" displayName="Serum or plasma C reactive protein measurement (mass/volume)" /> <statusCode code="completed" /> <effectiveTime value="900774838656" /> <value unit="mg/dL" xsi :type="PQ" value="1.43" /> <interpretationCode codeSystem="local" code= "" /> <referenceRange> <observationRange> < text>0.00-0.50</text> </observationRange> </referenceRange> </observation> </component> </organizer> </entry> <entry> < organizer moodCode="EVN" classCode="BATTERY"> <templateId root= "2.16.840.1.209651.10..22.4.1" /> <id nullFlavor="NA" /> <code codeSystem="local" code="69856-1" displayName="Complete blood count (CBC) with automated white blood cell (WBC) differential" /> <statusCode code= "completed" /> <component> <observation moodCode="EVN" classCode= "OBS"> <templateId root="2.16.840.1.419958.10..22.4.2" /> < id nullFlavor="NA" /> <code codeSystem="local" code="6690-2" displayName="Blood leukocytes automated count (number/volume)" /> < statusCode code="completed" /> <effectiveTime value="620999164342" /> <value unit="10*3/uL" xsi:type="PQ" value="9.9" /> < referenceRange> <observationRange> <text>4.3-11.0</text > </observationRange> </referenceRange> </observation > </component> <component> <observation moodCode="EVN" classCode="OBS"> <templateId root="2.16.840.1.825004...4.2" /> <id nullFlavor="NA" /> <code codeSystem="local" code="789-8" displayName="Blood erythrocytes automated count (number/volume)" /> < statusCode code="completed" /> <effectiveTime value="311177975035" /> <value unit="10*6/uL" xsi:type="PQ" value="4.45" /> < referenceRange> <observationRange> <text>4.35-5.85</text > </observationRange> </referenceRange> </observation > </component> <component> <observation moodCode="EVN" classCode="OBS"> <templateId root="2.16.840.1.180885.10..22.4.2" /> <id nullFlavor="NA" /> <code codeSystem="local" code="78540-8 " displayName="Venous blood hemoglobin measurement (mass/volume)" /> < statusCode code="completed" /> <effectiveTime value="288641857927" /> <value unit="g/dL" xsi:type="PQ" value="12.0" /> < referenceRange> <observationRange> <text>11.5-16.0</text > </observationRange> </referenceRange> </observation > </component> <component> <observation moodCode="EVN" classCode="OBS"> <templateId root="05.27.840.1.931738.10...4.2" /> <id nullFlavor="NA" /> <code codeSystem="local" code="74108-3 " displayName="Blood hematocrit (volume fraction)" /> <statusCode code= "completed" /> <effectiveTime value="455922175710" /> <value unit="%" xsi:type="PQ" value="37" /> <referenceRange> < observationRange> <text>35-52</text> </observationRange > </referenceRange> </observation> </component> < component> <observation moodCode="EVN" classCode="OBS"> < templateId root="05.27.840.1.886780.10..22.4.2" /> <id nullFlavor="NA " /> <code codeSystem="local" code="787-2" displayName="Automated erythrocyte mean corpuscular volume" /> <statusCode code="completed" / > <effectiveTime value="579390663125" /> <value unit="[foz_us] " xsi:type="PQ" value="84" /> <referenceRange> < observationRange> <text>80-99</text> </observationRange > </referenceRange> </observation> </component> < component> <observation moodCode="EVN" classCode="OBS"> < templateId root="2.16.840.1.694333.10.20.22.4.2" /> <id nullFlavor="NA " /> <code codeSystem="local" code="785-6" displayName="Automated erythrocyte mean corpuscular hemoglobin (mass per erythrocyte)" /> < statusCode code="completed" /> <effectiveTime value="446293841481" /> <value unit="pg" xsi:type="PQ" value="27" /> <referenceRange> <observationRange> <text>25-34</text> </ observationRange> </referenceRange> </observation> </ component> <component> <observation moodCode="EVN" classCode="OBS"> <templateId root="216.840.1.898577.10..22.4.2" /> <id nullFlavor="NA" /> <code codeSystem="local" code="786-4" displayName= "Automated erythrocyte mean corpuscular hemoglobin concentration measurement ( mass/volume)" /> <statusCode code="completed" /> < effectiveTime value="828963594018" /> <value unit="g/dL" xsi:type="PQ" value="32" /> <referenceRange> <observationRange> <text>32-36</text> </observationRange> </referenceRange > </observation> </component> <component> <observation moodCode="EVN" classCode="OBS"> <templateId root= "2.16.840.1.863210.10..22.4.2" /> <id nullFlavor="NA" /> < code codeSystem="local" code="788-0" displayName="Automated erythrocyte distribution width ratio" /> <statusCode code="completed" /> < effectiveTime value="791330661885" /> <value unit="%" xsi:type="PQ " value="16.7" /> <interpretationCode codeSystem="local" code="" /> <referenceRange> <observationRange> <text>10.0- 14.5</text> </observationRange> </referenceRange> </ observation> </component> <component> <observation moodCode= "EVN" classCode="OBS"> <templateId root="2.16.840.1.446449.10.20.22.4.2 " /> <id nullFlavor="NA" /> <code codeSystem="local" code="777 -3" displayName="Automated blood platelet count (count/volume)" /> < statusCode code="completed" /> <effectiveTime value="260537207615" /> <value unit="10*3/uL" xsi:type="PQ" value="458" /> < interpretationCode codeSystem="local" code="" /> <referenceRange> <observationRange> <text>130-400</text> </ observationRange> </referenceRange> </observation> </ component> <component> <observation moodCode="EVN" classCode="OBS"> <templateId root="2.16.840.1.704486.10.20.22.4.2" /> <id nullFlavor="NA" /> <code codeSystem="local" code="25346-9" displayName= "Automated blood platelet mean volume measurement" /> <statusCode code= "completed" /> <effectiveTime value="058740005735" /> <value unit="[foz_us]" xsi:type="PQ" value="9.6" /> <referenceRange> <observationRange> <text>7.4-10.4</text> </ observationRange> </referenceRange> </observation> </ component> <component> <observation moodCode="EVN" classCode="OBS"> <templateId root="2.16.840.1.875838.10..22.4.2" /> <id nullFlavor="NA" /> <code codeSystem="local" code="770-8" displayName= "Automated blood neutrophils/100 leukocytes" /> <statusCode code= "completed" /> <effectiveTime value="057941748734" /> <value unit="%" xsi:type="PQ" value="54" /> <referenceRange> < observationRange> <text>42-75</text> </observationRange > </referenceRange> </observation> </component> < component> <observation moodCode="EVN" classCode="OBS"> < templateId root="2.16.840.1.944935.10..22.4.2" /> <id nullFlavor="NA " /> <code codeSystem="local" code="736-9" displayName="Automated blood lymphocytes/100 leukocytes" /> <statusCode code="completed" /> <effectiveTime value="871610384709" /> <value unit="%" xsi: type="PQ" value="38" /> <referenceRange> <observationRange> <text>12-44</text> </observationRange> </ referenceRange> </observation> </component> <component> <observation moodCode="EVN" classCode="OBS"> <templateId root= "216.840.1.916897.10.20.22.4.2" /> <id nullFlavor="NA" /> < code codeSystem="local" code="88388-0" displayName="Blood monocytes/100 leukocytes" /> <statusCode code="completed" /> <effectiveTime value="379576257403" /> <value unit="%" xsi:type="PQ" value="5" /> <referenceRange> <observationRange> <text>0-12 </text> </observationRange> </referenceRange> </ observation> </component> <component> <observation moodCode= "EVN" classCode="OBS"> <templateId root="2.16.840.1.704461.10.20.22.4.2 " /> <id nullFlavor="NA" /> <code codeSystem="local" code="713 -8" displayName="Automated blood eosinophils/100 leukocytes" /> < statusCode code="completed" /> <effectiveTime value="721186408160" /> <value unit="%" xsi:type="PQ" value="2" /> <referenceRange > <observationRange> <text>0-10</text> </ observationRange> </referenceRange> </observation> </ component> <component> <observation moodCode="EVN" classCode="OBS"> <templateId root="16.840.1.832434.10.20.22.4.2" /> <id nullFlavor="NA" /> <code codeSystem="local" code="706-2" displayName= "Automated blood basophils/100 leukocytes" /> <statusCode code= "completed" /> <effectiveTime value="230628684370" /> <value unit="%" xsi:type="PQ" value="0" /> <referenceRange> < observationRange> <text>0-10</text> </observationRange> </referenceRange> </observation> </component> < component> <observation moodCode="EVN" classCode="OBS"> < templateId root="216.840.1.386152.10.20.22.4.2" /> <id nullFlavor="NA " /> <code codeSystem="local" code="751-8" displayName="Blood neutrophils automated count (number/volume)" /> <statusCode code= "completed" /> <effectiveTime value="709562407397" /> <value unit="10*3" xsi:type="PQ" value="5.3" /> <referenceRange> < observationRange> <text>1.8-7.8</text> </ observationRange> </referenceRange> </observation> </ component> <component> <observation moodCode="EVN" classCode="OBS"> <templateId root="2.16.840.1.797120.10.20.22.4.2" /> <id nullFlavor="NA" /> <code codeSystem="local" code="731-0" displayName= "Blood lymphocytes automated count (number/volume)" /> <statusCode code ="completed" /> <effectiveTime value="116763221195" /> <value unit="10*3" xsi:type="PQ" value="3.8" /> <referenceRange> < observationRange> <text>1.0-4.0</text> </ observationRange> </referenceRange> </observation> </ component> <component> <observation moodCode="EVN" classCode="OBS"> <templateId root="2.16.840.1.096221.10.20.22.4.2" /> <id nullFlavor="NA" /> <code codeSystem="local" code="742-7" displayName= "Blood monocytes automated count (number/volume)" /> <statusCode code= "completed" /> <effectiveTime value="045855315248" /> <value unit="10*3" xsi:type="PQ" value="0.5" /> <referenceRange> < observationRange> <text>0.0-1.0</text> </ observationRange> </referenceRange> </observation> </ component> <component> <observation moodCode="EVN" classCode="OBS"> <templateId root="216.840.1.233438.10.20.22.4.2" /> <id nullFlavor="NA" /> <code codeSystem="local" code="711-2" displayName= "Automated eosinophil count" /> <statusCode code="completed" /> <effectiveTime value="556493357794" /> <value unit="10*3/uL" xsi: type="PQ" value="0.2" /> <referenceRange> <observationRange > <text>0.0-0.3</text> </observationRange> </ referenceRange> </observation> </component> <component> <observation moodCode="EVN" classCode="OBS"> <templateId root= "216.840.1.139697.10...4.2" /> <id nullFlavor="NA" /> < code codeSystem="local" code="704-7" displayName="Automated blood basophil count (count/volume)" /> <statusCode code="completed" /> < effectiveTime value="128571831399" /> <value unit="10*3/uL" xsi:type= "PQ" value="0.0" /> <referenceRange> <observationRange> <text>0.0-0.1</text> </observationRange> </ referenceRange> </observation> </component> </organizer> </entry > <entry> <organizer moodCode="EVN" classCode="BATTERY"> <templateId root="2.16.840.1.793665.10..22.4.1" /> <id nullFlavor="NA" /> <code codeSystem="local" code="91711-3" displayName="PT panel in platelet poor plasma by coagulation assay" /> <statusCode code="completed" /> <component> <observation moodCode="EVN" classCode="OBS"> <templateId root= "2.16.840.1.183972.10.20.22.4.2" /> <id nullFlavor="NA" /> < code codeSystem="local" code="5902-2" displayName="Prothrombin time (PT) in platelet poor plasma by coagulation assay" /> <statusCode code= "completed" /> <effectiveTime value="379721952289" /> <value unit="s" xsi:type="PQ" value="13.8" /> <referenceRange> < observationRange> <text>12.2-14.7</text> </ observationRange> </referenceRange> </observation> </ component> <component> <observation moodCode="EVN" classCode="OBS"> <templateId root="2.16.840.1.509850.10..22.4.2" /> <id nullFlavor="NA" /> <code codeSystem="local" code="98210-3" displayName= "INR in platelet poor plasma or blood by coagulation assay" /> < statusCode code="completed" /> <effectiveTime value="325092715359" /> <value unit="" xsi:type="PQ" value="1.1" /> <referenceRange> <observationRange> <text>0.8-1.4</text> </ observationRange> </referenceRange> </observation> </ component> </organizer> </entry> <entry> <organizer moodCode="EVN" classCode="BATTERY"> <templateId root="2.16.840.1.577509.10.20.22.4.1" /> <id nullFlavor="NA" /> <code codeSystem="local" code="49579-4" displayName="Activated partial thromboplastin time (aPTT) in platelet poor plasma bycoagulation assay" /> <statusCode code="completed" /> < component> <observation moodCode="EVN" classCode="OBS"> < templateId root="2.16.840.1.475353.10.20.22.4.2" /> <id nullFlavor="NA " /> <code codeSystem="local" code="22211-8" displayName="Activated partial thromboplastin time (aPTT) in platelet poor plasma bycoagulation assay" /> <statusCode code="completed" /> <effectiveTime value= "404996919795" /> <value unit="s" xsi:type="PQ" value="36" /> <interpretationCode codeSystem="local" code="" /> <referenceRange> <observationRange> <text>24-35</text> </ observationRange> </referenceRange> </observation> </ component> </organizer> </entry> <entry> <organizer moodCode="EVN" classCode="BATTERY"> <templateId root="2.16.840.1.291835.10.20.22.4.1" /> <id nullFlavor="NA" /> <code codeSystem="local" code="35787-3" displayName="Fibrin D-dimer FEU measurement in platelet poor plasma (mass/volume )" /> <statusCode code="completed" /> <component> <observation moodCode="EVN" classCode="OBS"> <templateId root= "2.16.840.1.216944.10.20.22.4.2" /> <id nullFlavor="NA" /> < code codeSystem="local" code="88350-4" displayName="Fibrin D-dimer FEU measurement in platelet poor plasma (mass/volume)" /> <statusCode code= "completed" /> <effectiveTime value="430617368126" /> <value unit="ug/mL" xsi:type="PQ" value="0.33" /> <referenceRange> <observationRange> <text>0.00-0.49</text> </ observationRange> </referenceRange> </observation> </ component> </organizer> </entry> <entry> <organizer moodCode="EVN" classCode="BATTERY"> <templateId root="2.16.840.1.804473.10..22.4.1" /> <id nullFlavor="NA" /> <code codeSystem="local" code="45723-3" displayName="Comprehensive metabolic panel" /> <statusCode code="completed " /> <component> <observation moodCode="EVN" classCode="OBS"> <templateId root="2.16.840.1.531902.10..22.4.2" /> <id nullFlavor ="NA" /> <code codeSystem="local" code="2951-2" displayName="Serum or plasma sodium measurement (moles/volume)" /> <statusCode code= "completed" /> <effectiveTime value="921823728339" /> <value unit="mmol/L" xsi:type="PQ" value="139" /> <referenceRange> <observationRange> <text>135-145</text> </ observationRange> </referenceRange> </observation> </ component> <component> <observation moodCode="EVN" classCode="OBS"> <templateId root="2.16.840.1.472680.10..22.4.2" /> <id nullFlavor="NA" /> <code codeSystem="local" code="2823-3" displayName= "Serum or plasma potassium measurement (moles/volume)" /> <statusCode code="completed" /> <effectiveTime value="244478764843" /> < value unit="mmol/L" xsi:type="PQ" value="3.9" /> <referenceRange> <observationRange> <text>3.6-5.0</text> </ observationRange> </referenceRange> </observation> </ component> <component> <observation moodCode="EVN" classCode="OBS"> <templateId root="2.16.840.1.260438.10..22.4.2" /> <id nullFlavor="NA" /> <code codeSystem="local" code="" displayName= "Serum or plasma chloride measurement (moles/volume)" /> <statusCode code="completed" /> <effectiveTime value="104139848972" /> < value unit="mmol/L" xsi:type="PQ" value="107" /> <referenceRange> <observationRange> <text>98-107</text> </ observationRange> </referenceRange> </observation> </ component> <component> <observation moodCode="EVN" classCode="OBS"> <templateId root="2.16.840.1.185713.10...4.2" /> <id nullFlavor="NA" /> <code codeSystem="local" code="2027-12" displayName= "Carbon dioxide" /> <statusCode code="completed" /> < effectiveTime value="473855888345" /> <value unit="mmol/L" xsi:type="PQ " value="24" /> <referenceRange> <observationRange> <text>21-32</text> </observationRange> </ referenceRange> </observation> </component> <component> <observation moodCode="EVN" classCode="OBS"> <templateId root= "2.16.840.1.665123.10..22.4.2" /> <id nullFlavor="NA" /> < code codeSystem="local" code="71227-7" displayName="Serum or plasma anion gap determination (moles/volume)" /> <statusCode code="completed" /> <effectiveTime value="427014794086" /> <value unit="mmol/L" xsi: type="PQ" value="8" /> <referenceRange> <observationRange> <text>5-14</text> </observationRange> </ referenceRange> </observation> </component> <component> <observation moodCode="EVN" classCode="OBS"> <templateId root= "2.16.840.1.242907.10..22.4.2" /> <id nullFlavor="NA" /> < code codeSystem="local" code="3094-0" displayName="Serum or plasma urea nitrogen measurement (mass/volume)" /> <statusCode code="completed" /> <effectiveTime value="970652523020" /> <value unit="mg/dL" xsi:type="PQ" value="7" /> <referenceRange> < observationRange> <text>7-18</text> </observationRange> </referenceRange> </observation> </component> < component> <observation moodCode="EVN" classCode="OBS"> < templateId root="2.16.840.1.281355.10..22.4.2" /> <id nullFlavor="NA " /> <code codeSystem="local" code="2160-0" displayName="Serum or plasma creatinine measurement (mass/volume)" /> <statusCode code= "completed" /> <effectiveTime value="487960353505" /> <value unit="mg/dL" xsi:type="PQ" value="0.76" /> <referenceRange> <observationRange> <text>0.60-1.30</text> </ observationRange> </referenceRange> </observation> </ component> <component> <observation moodCode="EVN" classCode="OBS"> <templateId root="2.16.840.1.557977.10..22.4.2" /> <id nullFlavor="NA" /> <code codeSystem="local" code="3097-3" displayName= "Serum or plasma urea nitrogen/creatinine mass ratio" /> <statusCode code="completed" /> <effectiveTime value="436872654522" /> < value unit="" xsi:type="PQ" value="9" /> <referenceRange> < observationRange> <text>NRG</text> </observationRange> </referenceRange> </observation> </component> < component> <observation moodCode="EVN" classCode="OBS"> < templateId root="2.16.840.1.720218.10.20.22.4.2" /> <id nullFlavor="NA " /> <code codeSystem="local" code="74721-3" displayName="Serum or plasma creatinine measurement with calculation of estimated glomerular filtration rate" /> <statusCode code="completed" /> < effectiveTime value="082653133102" /> <value unit="" xsi:type="PQ" value=">" /> <referenceRange> <observationRange> <text>NRG</text> </observationRange> </referenceRange > </observation> </component> <component> <observation moodCode="EVN" classCode="OBS"> <templateId root= "2.16.840.1.744912.10.20.22.4.2" /> <id nullFlavor="NA" /> < code codeSystem="local" code="2345-7" displayName="Serum or plasma glucose measurement (mass/volume)" /> <statusCode code="completed" /> <effectiveTime value="641917411038" /> <value unit="mg/dL" xsi:type="PQ " value="91" /> <referenceRange> <observationRange> <text>70-105</text> </observationRange> </ referenceRange> </observation> </component> <component> <observation moodCode="EVN" classCode="OBS"> <templateId root= "2.16.840.1.314067.10.20.22.4.2" /> <id nullFlavor="NA" /> < code codeSystem="local" code="67110-3" displayName="Serum or plasma calcium measurement (mass/volume)" /> <statusCode code="completed" /> <effectiveTime value="231474765065" /> <value unit="mg/dL" xsi:type="PQ " value="9.8" /> <referenceRange> <observationRange> <text>8.5-10.1</text> </observationRange> </ referenceRange> </observation> </component> <component> <observation moodCode="EVN" classCode="OBS"> <templateId root= "2.16.840.1.734903.10..22.4.2" /> <id nullFlavor="NA" /> < code codeSystem="local" code="1975" displayName="Serum or plasma total bilirubin measurement (mass/volume)" /> <statusCode code="completed" / > <effectiveTime value="843534456033" /> <value unit="mg/dL" xsi:type="PQ" value="0.3" /> <referenceRange> < observationRange> <text>0.1-1.0</text> </ observationRange> </referenceRange> </observation> </ component> <component> <observation moodCode="EVN" classCode="OBS"> <templateId root="2.16.840.1.926739.10..22.4.2" /> <id nullFlavor="NA" /> <code codeSystem="local" code="6768-6" displayName= "Serum or plasma alkaline phosphatase measurement (enzymatic activity/volume)" / > <statusCode code="completed" /> <effectiveTime value= "466804574212" /> <value unit="U/L" xsi:type="PQ" value="39" /> <interpretationCode codeSystem="local" code="" /> <referenceRange > <observationRange> <text>40-136</text> </ observationRange> </referenceRange> </observation> </ component> <component> <observation moodCode="EVN" classCode="OBS"> <templateId root="2.16.840.1.157394.10.20.22.4.2" /> <id nullFlavor="NA" /> <code codeSystem="local" code="1919-11" displayName= "Serum or plasma aspartate aminotransferase measurement (enzymatic activity/ volume)" /> <statusCode code="completed" /> <effectiveTime value="403977352658" /> <value unit="U/L" xsi:type="PQ" value="11" /> <referenceRange> <observationRange> <text>5-34< /text> </observationRange> </referenceRange> </ observation> </component> <component> <observation moodCode= "EVN" classCode="OBS"> <templateId root="2.16.840.1.994295.10.20.22.4.2 " /> <id nullFlavor="NA" /> <code codeSystem="local" code= "1741-09" displayName="Serum or plasma alanine aminotransferase measurement ( enzymatic activity/volume)" /> <statusCode code="completed" /> <effectiveTime value="993600031294" /> <value unit="U/L" xsi:type="PQ " value="8" /> <referenceRange> <observationRange> <text>0-55</text> </observationRange> </referenceRange > </observation> </component> <component> <observation moodCode="EVN" classCode="OBS"> <templateId root= "16.840.1.797419.10..22.4.2" /> <id nullFlavor="NA" /> < code codeSystem="local" code="2885-2" displayName="Serum or plasma protein measurement (mass/volume)" /> <statusCode code="completed" /> <effectiveTime value="982026188025" /> <value unit="g/dL" xsi:type="PQ " value="7.6" /> <referenceRange> <observationRange> <text>6.4-8.2</text> </observationRange> </ referenceRange> </observation> </component> <component> <observation moodCode="EVN" classCode="OBS"> <templateId root= "05.27.840.1.961565.22.4.2" /> <id nullFlavor="NA" /> < code codeSystem="local" code="1751-7" displayName="Serum or plasma albumin measurement (mass/volume)" /> <statusCode code="completed" /> <effectiveTime value="496814918405" /> <value unit="g/dL" xsi:type="PQ " value="4.5" /> <referenceRange> <observationRange> <text>3.2-4.5</text> </observationRange> </ referenceRange> </observation> </component> </organizer> </entry > <entry> <organizer moodCode="EVN" classCode="BATTERY"> <templateId root="05.27.840.1.218051.10.2022.4.1" /> <id nullFlavor="NA" /> <code codeSystem="local" code="19548-6" displayName="Magnesium" /> <statusCode code="completed" /> <component> <observation moodCode="EVN" classCode="OBS"> <templateId root="05.27.840.1.551378.20.22.4.2" /> <id nullFlavor="NA" /> <code codeSystem="local" code="49612-3 " displayName="Magnesium" /> <statusCode code="completed" /> < effectiveTime value="438898703362" /> <value unit="mg/dL" xsi:type="PQ " value="1.9" /> <referenceRange> <observationRange> <text>1.8-2.4</text> </observationRange> </ referenceRange> </observation> </component> </organizer> </entry > <entry> <organizer moodCode="EVN" classCode="BATTERY"> <templateId root="2.16.840.1.146595.10..22.4.1" /> <id nullFlavor="NA" /> <code codeSystem="local" code="2156-09" displayName="Serum or plasma creatine kinase measurement (enzymatic activity/volume)" /> <statusCode code="completed" / > <component> <observation moodCode="EVN" classCode="OBS"> <templateId root="2.16.840.1.760552.10..22.4.2" /> <id nullFlavor="NA " /> <code codeSystem="local" code="2156-09" displayName="Serum or plasma creatine kinase measurement (enzymatic activity/volume)" /> < statusCode code="completed" /> <effectiveTime value="806961993824" /> <value unit="U/L" xsi:type="PQ" value="154" /> <referenceRange > <observationRange> <text>29-168</text> </ observationRange> </referenceRange> </observation> </ component> </organizer> </entry> <entry> <organizer moodCode="EVN" classCode="BATTERY"> <templateId root="2.16.840.1.262651.10..22.4.1" /> <id nullFlavor="NA" /> <code codeSystem="local" code="31838-4" displayName="Serum or plasma creatine kinase MB measurement (enzymatic activity/ volume)" /> <statusCode code="completed" /> <component> < observation moodCode="EVN" classCode="OBS"> <templateId root= "2.16.840.1.516518.10...4.2" /> <id nullFlavor="NA" /> < code codeSystem="local" code="39603-4" displayName="Serum or plasma creatine kinase MB measurement (enzymatic activity/volume)" /> <statusCode code= "completed" /> <effectiveTime value="780295611375" /> <value unit="ng/mL" xsi:type="PQ" value="0.6" /> <referenceRange> < observationRange> <text><6.6</text> </ observationRange> </referenceRange> </observation> </ component> </organizer> </entry> <entry> <organizer moodCode="EVN" classCode="BATTERY"> <templateId root="2.16.840.1.387511.10..22.4.1" /> <id nullFlavor="NA" /> <code codeSystem="local" code="87394-1" displayName="Serum or plasma troponin i.cardiac measurement (mass/volume)" /> <statusCode code="completed" /> <component> <observation moodCode="EVN" classCode="OBS"> <templateId root= "2.16.840.1.474296.10..22.4.2" /> <id nullFlavor="NA" /> < code codeSystem="local" code="34217-7" displayName="Serum or plasma troponin i.cardiac measurement (mass/volume)" /> <statusCode code="completed" / > <effectiveTime value="993493963733" /> <value unit="ng/mL" xsi:type="PQ" value="<" /> <referenceRange> < observationRange> <text><0.30</text> </ observationRange> </referenceRange> </observation> </ component> </organizer> </entry> <entry> <organizer moodCode="EVN" classCode="BATTERY"> <templateId root="2.16.840.1.015252.10.20.22.4.1" /> <id nullFlavor="NA" /> <code codeSystem="local" code="95773-7" displayName="Serum or plasma lithium measurement (moles/volume)" /> < statusCode code="completed" /> <component> <observation moodCode= "EVN" classCode="OBS"> <templateId root="2.16.840.1.615888.10.20.22.4.2 " /> <id nullFlavor="NA" /> <code codeSystem="local" code= "94789-8" displayName="BNP level" /> <statusCode code="completed" /> <effectiveTime value="517217609622" /> <value unit="pg/mL" xsi: type="PQ" value="<" /> <referenceRange> <observationRange > <text><100.0</text> </observationRange> </ referenceRange> </observation> </component> </organizer> </entry > <entry> <organizer moodCode="EVN" classCode="BATTERY"> <templateId root="2.16.840.1.670996.10.20.22.4.1" /> <id nullFlavor="NA" /> <code codeSystem="local" code="2639-3" displayName="Myoglobin, serum" /> < statusCode code="completed" /> <component> <observation moodCode= "EVN" classCode="OBS"> <templateId root="2.16.840.1.204143.10.20.22.4.2 " /> <id nullFlavor="NA" /> <code codeSystem="local" code= "2639-3" displayName="Myoglobin, serum" /> <statusCode code="completed " /> <effectiveTime value="890331211576" /> <value unit="ng/mL " xsi:type="PQ" value="27.8" /> <referenceRange> < observationRange> <text>10.0-92.0</text> </ observationRange> </referenceRange> </observation> </ component> </organizer> </entry> <entry> <organizer moodCode="EVN" classCode="BATTERY"> <templateId root="2.16.840.1.529813.10.20.22.4.1" /> <id nullFlavor="NA" /> <code codeSystem="local" code="2113-10" displayName="Urine beta human chorionic gonadotropin (hCG) measurement" /> <statusCode code="completed" /> <component> <observation moodCode= "EVN" classCode="OBS"> <templateId root="2.16.840.1.905673.10.20.22.4.2 " /> <id nullFlavor="NA" /> <code codeSystem="local" code= "2113-10" displayName="Urine beta human chorionic gonadotropin (hCG) measurement " /> <statusCode code="completed" /> <effectiveTime value= "888981572304" /> <value unit="" xsi:type="PQ" value="NEGATIVE" /> <referenceRange> <observationRange> <text>NEGATIVE </text> </observationRange> </referenceRange> </ observation> </component> </organizer> </entry> <entry> <organizer moodCode="EVN" classCode="BATTERY"> <templateId root= "2.16.840.1.853045.10.20.22.4.1" /> <id nullFlavor="NA" /> <code codeSystem="local" code="CPF9296" displayName="D-Dimer " /> <statusCode code="completed" /> <component> <observation moodCode="EVN" classCode="OBS"> <templateId root="2.16.840.1.498037.10.20.22.4.2" /> <id nullFlavor="NA" /> <code codeSystem="local" code="Vyf8811 " displayName="DDimer" /> <statusCode code="completed" /> < effectiveTime value="995615788536" /> <value unit="ng/mL" xsi:type="PQ " value="190.00" /> <referenceRange> <observationRange> <text>21.00-229.00</text> </observationRange> </ referenceRange> </observation> </component> </organizer> </entry ></section> Encounters ACCT No. Visit Date/Time Discharge Status Pt. Type Provider Facility Loc./Unit Complaint [id number] 01/06/2018 10:37:00 01/06/2018 23:59:59 CLS Outpatient CONNIE SUAREZ APRN [facility] RAD BILATERAL NIPPLE DISCHARGE [id number] 09/04/2017 17:14:00 09/04/2017 19:48:00 DIS Emergency JUAN GONZALEZ DO [facility] ER R LEG PAIN [id number] 09/03/2017 23:15:00 09/04/2017 00:17:00 DIS Emergency MAURIZIO THURMAN MD [facility] ER FEVER AND PAIN L LEG [id number] 08/30/2017 08:16:00 08/30/2017 12:00:00 DIS Outpatient SHRAVAN WALSH DO [facility] ENDO BLOOD IN STOOL [id number] 08/24/2017 10:30:00 08/24/2017 11:35:00 DIS Outpatient VERNON WALSH DOTT Ej [facility] PREOP COLONOSCOPY [id number] 08/23/2017 06:54:00 08/23/2017 23:59:59 CLS Outpatient SKIP FISCHER FACC, BONI VELEZ CCDS [facility] CATH PALPITATIONS [id number] 08/23/2017 06:52:00 08/23/2017 23:59:59 CLS Outpatient RIDGE MICHAEL [employer] [facility] [facility] CARD ASD,STROKE, PALPITATIONS,SOB [id number] 08/17/2017 17:21:00 08/17/2017 20:13:00 DIS Emergency MARYLOU MOLINA [facility] ER CHEST PAIN [id number] 07/31/2017 19:41:00 08/01/2017 00:22:00 DIS Emergency MARYLOU MOLINA [facility] ER ABD PAIN [id number] 06/14/2017 00:19:00 06/14/2017 02:10:00 DIS Emergency LISA DOJUAN K [facility] ER LOWER BACK PAIN [id number] 04/17/2017 12:47:00 04/17/2017 14:22:00 DIS Emergency JOHN FISCHER, SANTINO Andrews [facility] ER HEADACHE FROM INJURY [id number] 03/24/2017 00:38:00 03/24/2017 01:59:00 DIS Emergency LAWRENCE WHITESIDE CRUISE COORDINATOR [facility] ER VOMITING, CONTROL CAME OUT W/URINATING [id number] 01/27/2017 17:17:00 01/27/2017 20:18:00 DIS Emergency MORGAN FISCHER, MARIA ELENA Mao [facility] ER DENTAL PAIN/FACE SWELLING [id number] 01/25/2017 20:50:00 01/25/2017 21:44:00 DIS Emergency MAURIZIO THURMAN MD [facility] ER MOUTH ABCESS [id number] 11/22/2016 15:18:00 11/22/2016 17:00:00 DIS Emergency LAWRENCE WHITESIDE CRUISE COORDINATOR [facility] ER RT LEG INJ [id number] 08/23/2016 13:34:00 08/23/2016 16:55:00 DIS Emergency LAWRENCE WHITESIDE CRUISE COORDINATOR [facility] ER ABD PAIN [id number] 04/12/2016 11:27:00 04/12/2016 12:57:00 DIS Emergency JUAN GONZALEZ DO [facility] ER R LEG OINJ [id number] 12/31/2015 15:00:00 01/01/2016 11:55:00 DIS Inpatient MICAELA FISCHER, HIEU Bell [facility] ICU SUICIDE ATTEMPT VOL DEPLETION DEPRESSION ANXIETY [id number] 11/20/2015 10:55:00 11/20/2015 12:05:00 DIS Emergency LAWRENCE WHITESIDE CRUISE COORDINATOR [facility] ER COUGH/CONGESTION SOA [id number] 10/17/2015 08:04:00 10/17/2015 23:59:59 CLS Outpatient KADIE NEVAREZ MD [facility] RAD SPLENOMEGALY [id number] 09/21/2015 14:56:00 09/21/2015 15:46:00 DIS Emergency SANTINO LOPEZ MD [facility] ER BITE/LEFT EYE PASSED OUT [id number] 09/17/2015 13:48:00 09/17/2015 17:20:00 DIS Emergency LISA JUAN HURTADO K [facility] ER HEADACHE/LEFT SIDE NUMBNESS [id number] 05/06/2015 00:09:00 05/06/2015 23:59:59 CLS Preadmit KENYATTA COLEMAN MD [facility] ONC [id number] 02/04/2015 13:33:00 05/05/2015 00:01:00 DIS Outpatient KENYATTA COLEMAN MD [facility] ONC [id number] 03/29/2015 08:08:00 03/29/2015 09:25:00 DIS Emergency VALERIA GUILLERMO MD [facility] ER R KNEE PAIN [id number] 03/10/2015 14:25:00 03/10/2015 23:59:59 CLS Outpatient KADIE NEVAREZ MD [facility] RAD TRANSIENT ALTERATION OF AWARENESS [id number] 01/25/2015 10:51:00 01/25/2015 12:01:00 DIS Emergency LAWRENCE WHITESIDE Amber CRUISE COORDINATOR [facility] ER DIFF BREATHING/ELEV HEART RATE [id number] 01/09/2015 11:00:00 01/09/2015 23:59:59 CLS Preadmit NWAGWAbimael, ISIDORE O CRUISE COORDINATOR [facility] CARD CHEST PAIN DIZZINESS PALPITATIONS [id number] 12/24/2014 10:42:00 01/08/2015 00:01:00 DIS Outpatient NWAGWU, ISIDORE O CRUISE COORDINATOR [facility] CARD CHEST PAIN DIZZINESS PALPITATIONS [id number] 11/03/2014 14:34:00 11/03/2014 15:57:00 DIS Emergency ASHLEY OBRIEN MD [facility] ER [id number] 10/09/2014 09:52:00 10/09/2014 23:59:59 CLS Outpatient KADIE NEVAREZ MD [facility] RAD [id number] 01/17/2018 12:58:00 ACT Emergency MAGDY GÓMEZ [facility] ER RASH;RITCHIE AND ITCHES [id number] 11/19/2017 22:45:00 Document Registration [id number] 08/22/2016 21:36:00 Document Registration [id number] 03/29/2015 19:10:00 04/22/2015 16:58:00 DIS Inpatient Marianne FISCHER, Sonya Bell [facility] [id number] 09/30/2017 12:19:00 09/30/2017 14:43:00 DIS Outpatient Viral [facility] ER [id number] 11/24/2016 10:46:00 11/24/2016 23:59:00 DIS Outpatient NATALIE GUTIERREZ [id number] 07/16/2016 09:58:00 07/16/2016 23:59:00 DIS Outpatient NATALIE GUTIERREZ [id number] 09/30/2017 13:14:02 Document Registration
[2018-01-17] MEDS ORDERED: FAMOTIDINE 20 MG (PEPCID) TABLET PO STA (14:08)
[2018-01-17 14:24] VITALS: BP 119/76
== END 2018-01-17 14:24 | disposition home or self-care (01) ==
LOC: EDUNIT# 12:57 → ER 12:58
DX: L50.0 Allergic urticaria (principal); G43.909 Migraine, unspecified, not intractable, without status migrainosus; G40.909 Epilepsy, unspecified, not intractable, without status epilepticus; J45.909 Unspecified asthma, uncomplicated; E11.9 Type 2 diabetes mellitus without complications; F90.9 Attention-deficit hyperactivity disorder, unspecified type; F41.9 Anxiety disorder, unspecified; F43.10 Post-traumatic stress disorder, unspecified; F31.9 Bipolar disorder, unspecified; F17.210 Nicotine dependence, cigarettes, uncomplicated; Z97.5 Presence of (intrauterine) contraceptive device; Z87.442 Personal history of urinary calculi; Z87.19 Personal history of other diseases of the digestive system; Z91.5 Personal history of self-harm; Z82.49 Family history of ischemic heart disease and other diseases of the circulatory system; Z98.51 Tubal ligation status; Z86.73 Personal history of transient ischemic attack (TIA), and cerebral infarction without residual deficits; Z86.718 Personal history of other venous thrombosis and embolism; Z91.040 Latex allergy status; Z88.0 Allergy status to penicillin; Z88.2 Allergy status to sulfonamides

== ENCOUNTER 2018-01-27 00:09 | Emergency (ER) | payer MEDICAID ==
[~2018-01-27] VITALS: Ht 154.9 cm; Wt 84.4 kg
[2018-01-27] MEDS ORDERED: KETOROLAC 60 MG/2 ML VIAL IM ONE (01:30)
[2018-01-27] MEDS ORDERED: ORPHENADRINE 60 MG/2 ML (NORFLEX) AMP IM ONE (01:30)
--- NOTE | 2018-01-27 02:19 | ED Fall/Injury ---
General Chief Complaint: Chest Wall/Rib Pain Stated Complaint: RT SIDE RIB PAIN-FALL Source: patient, old records History of Present Illness Date Seen by Provider: Jan 27, 2018 Time Seen by Provider: 01:15 Initial Comments PT ARRIVES VIA POV STATES AT AROUND 2230 TONIGHT, SHE TRIPPED OVER A GRATE IN THE BATHROOM AND FELL , LANDING ON FLOOR EDGING OF SHOWER, ON RIGHT RIBS C/O MUCH PAIN IN RIGHT RIBS, ESPECIALLY WITH COUGHING OR LAUGHING--STATES "I GO TO TEARS" PT IS NOT SHORT OF BREATH, JUST HURTS TO BREATHE NO COUGH, FEVER OR RECENT ILLNESS DID NOT HIT HEAD OR HAVE LOSS OF CONSCIOUSNESS NO OTHER INJURIES. PT STATES SHE FALLS DAILY DUE TO CHRONIC PROBLEMS WITH RIGHT LEG AND BALANCE ISSUES FROM OLD INJURY TO LEG, ALONG WITH PRIOR CVA WITH RIGHT SIDE WEAKNESS. NO NEW INJURY TO RIGHT LEG--WEARS A WALKING BOOT ON RIGHT FOOT PT WITH MULTIPLE VISITS FOR VARIOUS COMPLAINTS. PCP: JAMAL-ASIM, DR. Amber RODRIGUEZ Allergies and Home Medications Allergies Coded Allergies: latex (Verified Allergy, Severe, BLISTERS, 08/24/17) penicillin (Verified Allergy, Severe, ITCHING, 08/24/17) Sulfa (Sulfonamide Antibiotics) (Verified Allergy, Unknown, RASH, 08/24/17) Review of Systems Review of Systems Constitutional: no symptoms reported; No dizziness Ears, Nose, Mouth, Throat: no symptoms reported Respiratory: no symptoms reported; No cough, No short of breath Cardiovascular: see HPI, chest pain; No edema, No palpitations, No syncope Gastrointestinal: no symptoms reported; No abdominal pain, No nausea, No vomiting Genitourinary: no symptoms reported Musculoskeletal: see HPI Skin: no symptoms reported Psychiatric/Neurological: See HPI, Pre-Existing Deficit Past Fswtrmp-Msnhaf-Fdzzpf Hx Patient Social History Alcohol Use: Occasionally Uses Alcohol Beverage of Choice: Other Recreational Drug Use: No Smoking Status: Current Everyday Smoker (1 PPD) Type Used: Cigarettes 2nd Hand Smoke Exposure: Yes Recent Foreign Travel: No Contact w/Someone Who Travel: No Recent Hopitalizations: No Immunizations Up To Date Tetanus Booster (TDap): Less than 5yrs Date of Pneumonia Vaccine: Dec 10, 2014 Seasonal Allergies Seasonal Allergies: Yes Past Medical History Surgeries: Yes (LOOP RECORDER 08/23/17--DR. VALDIVIA; COLONOSCOPY 08/30/17; MULTIPLE SURGERIES RIGHT LEG--FRACTURES/ORIF/FASCIOTOMY--12 SURGERIES; IVC FINTER) Cardiac, Orthopedic, 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, Vascular Surgery Respiratory: Yes (CHILDHOOD) Asthma Cardiac: Yes (LOOP RECORDER 08/23/17 FOR PALPITATIONS; PFO AND ATRIAL SHUNT-- NO REPAIR; DVT RIGHT LEG POST RIGHT LEG FX/ORIF/FASCIOTOMY--IVC FILTER) Congenital Heart Disease, Deep Vein Thrombosis, Palpitations Neurological: Yes Headaches /Migraines, Neuropathy, Seizure Disorder, Stroke 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 Disorders: No Female 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 Disorders: Denies GALLEY HAND History: IUD, 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 Sexually Transmitted Disease: No HIV/AIDS: No Genitourinary: Yes Kidney Stones Gastrointestinal: Yes Colitis, Irritable Bowel Musculoskeletal: Yes Degenerate Disk Disease, Scoliosis, Chronic Back Pain, Fractures Endocrine: Yes (DIET CONTROLLED DIABETIC) Diabetes, Non-Insulin dep HEENT: Yes ("LEGALLY BLIND" ) Loss of Vision: Bilateral Hearing Impairment: Denies Cancer: No Psychosocial: Yes (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) ADD/ADHD, Anxiety, PTSD, Suicide Attempts, Bipolar, Depression Integumentary: No Blood Disorders: No Adverse Reaction/Blood Tranf: No (N/A) Family Medical History Antiphospholipid syndrome 19 MOTHER Diabetes mellitus 19 FATHER G8 BROTHER FH: aneurysm 19 FATHER FH: lupus 19 MOTHER FHx: congestive heart failure 19 FATHER FHx: renal failure 19 MOTHER Heart murmur 19 MOTHER Lupus anticoagulant disorder 19 MOTHER Patent foramen ovale 19 FATHER Barry syndrome G8 SISTER No Pertinent Family Hx Physical Exam Vital Signs Capillary Refill : Height, Weight, BMI Height: 5'1.00" Weight: 182lbs. 1.0oz. 82.034625ku; 37.8 BMI Method:Stated Progress/Results/Core Measures Results/Orders My Orders Orders - JUAN GONZALEZ DO Ketorolac Injection (Toradol Injection) (01/27/18 01:30) Orphenadrine Injection (Norflex Injectio (01/27/18 01:30) Ct Chest Wo (01/27/18 01:24) Chest Pa/Lat (2 View) (01/27/18 01:24) Ribs, Right 2-3 Views (01/27/18 01:24) Medications Given in ED Current Medications Medications Dose Ordered Sig/Diomedes Route Start Time Stop Time Status Last Admin Dose Admin Ketorolac Tromethamine 60 mg ONCE ONCE IM 01/27/18 01:30 01/27/18 01:31 DC 01/27/18 02:11 60 MG Orphenadrine Citrate 60 mg ONCE ONCE IM 01/27/18 01:30 01/27/18 01:31 DC 01/27/18 02:08 60 MG Diagnostic Imaging Comments CXR/RIGHT RIB XRAYS--NO ACUTE PROCESS, PENDING RADIOLOGIST REVIEW CT CHEST--NEGATIVE PER [facility] VIA FAX @ [phone] Reviewed: Reviewed by Me Departure Impression Primary Impression: Status post fall Additional Impressions: Hematoma of right chest wall Contusion of right chest wall Disposition: HOME, SELF-CARE Condition: Stable Departure-Patient Inst. Referrals: HIEU YAP MD (PCP/Family) Primary Care Physician Patient Instructions: CHEST CONTUSION, Preventing Falls Add. Discharge Instructions: ALTERNATE ICE AND HEAT TO AREA AT 20 MINUTE INTERVALS USE INCENTIVE SPIROMETER AND COUGH EVERY HOUR FOLLOW UP WITH YOUR DR IN 1 WEEK FOR RECHECK All discharge instructions reviewed with patient and/or family. Voiced understanding. Scripts Tramadol HCl (Ultram) 50 Mg Tablet 50 MG PO Q4H, #20 TAB Prov: JUAN GONZALEZ DO 01/27/18 Naproxen (Naproxen) 500 Mg Tablet 500 MG PO BID, #20 TAB Prov: JUAN GONZALEZ DO 01/27/18 Cyclobenzaprine HCl (Cyclobenzaprine HCl) 10 Mg Tablet 10 MG PO Q8H, #15 TAB Prov: JUAN GONZALEZ DO 01/27/18 JUAN GONZALEZ DO Jan 27, 2018 02:19
[2018-01-27] MEDS ORDERED: RX-TRAMADOL 50 MG (ULTRAM) TAB PPK#4 PO STA (02:38)
[2018-01-27] MEDS ORDERED: NAPR-915 PO (02:38)
[2018-01-27] MEDS ORDERED: RX-CYCLOBENZAPRINE 10 MG (FLEXERIL) TAB PPK#3 PO STA (02:38)
[2018-01-27] MEDS ORDERED: CYCL10TA9 PO (02:38)
[2018-01-27] MEDS ORDERED: TRAM-42 PO (02:38)
[2018-01-27] MEDS ORDERED: RX-NAPROXEN (NAPROSYN) 250 MG TAB PPK#4 PO STA (02:38)
[2018-01-27] MEDS ORDERED: RX-NAPROXEN (NAPROSYN) 250 MG TAB PPK#4 PO ONE (03:40)
[2018-01-27] MEDS ORDERED: RX-TRAMADOL 50 MG (ULTRAM) TAB PPK#4 PO ONE (03:40)
[2018-01-27] MEDS ORDERED: RX-CYCLOBENZAPRINE 10 MG (FLEXERIL) TAB PPK#3 PO ONE (03:40)
[2018-01-27 03:54] VITALS: BP 125/83
--- NOTE | 2018-01-27 05:50 | Diagnostic Imaging Report ---
INDICATION: Chest injury from a fall. PA and lateral chest. FINDINGS: There is a loop recorder projecting over the lower chest. Heart size and pulmonary vascularity are normal. Lungs are clear. There are no effusions or pneumothoraces. IMPRESSION: No acute abnormalities in the chest. Dictated by: Dictated on workstation # [id number]
--- NOTE | 2018-01-27 06:10 | Diagnostic Imaging Report ---
PROCEDURE: CT chest without contrast. TECHNIQUE: Multiple contiguous axial images were obtained through the chest without the use of intravenous contrast. INDICATION: Right rib injury from a fall. FINDINGS: Lungs are clear. There are no effusions or pneumothoraces. There are no displaced rib fractures seen. Mediastinum appears normal. IMPRESSION: Negative CT chest. I agree with preliminary interpretation. Dictated by: Dictated on workstation # [id number]
--- NOTE | 2018-01-27 06:22 | Diagnostic Imaging Report ---
INDICATION: Right rib injury from a fall 3 views of the right ribs do not show any displaced fractures. There is no effusion or pneumothorax. IMPRESSION: Negative right ribs Dictated by: Dictated on workstation # [id number]
== END 2018-01-27 03:54 | disposition home or self-care (01) ==
LOC: EDUNIT# 00:09 → ER 00:11
DX: S20.211A Contusion of right front wall of thorax, initial encounter (principal); J45.909 Unspecified asthma, uncomplicated; G43.909 Migraine, unspecified, not intractable, without status migrainosus; F90.9 Attention-deficit hyperactivity disorder, unspecified type; F41.9 Anxiety disorder, unspecified; F31.9 Bipolar disorder, unspecified; F43.10 Post-traumatic stress disorder, unspecified; G40.909 Epilepsy, unspecified, not intractable, without status epilepticus; E11.42 Type 2 diabetes mellitus with diabetic polyneuropathy; F17.210 Nicotine dependence, cigarettes, uncomplicated; Z86.718 Personal history of other venous thrombosis and embolism; Z86.73 Personal history of transient ischemic attack (TIA), and cerebral infarction without residual deficits; Z87.19 Personal history of other diseases of the digestive system; Z82.49 Family history of ischemic heart disease and other diseases of the circulatory system; Z97.5 Presence of (intrauterine) contraceptive device; Z87.442 Personal history of urinary calculi; Z98.51 Tubal ligation status; Z98.890 Other specified postprocedural states; Z88.0 Allergy status to penicillin; Z88.2 Allergy status to sulfonamides; Z91.040 Latex allergy status; W01.0XXA Fall on same level from slipping, tripping and stumbling without subsequent striking against object, initial encounter; Y92.009 Unspecified place in unspecified non-institutional (private) residence as the place of occurrence of the external cause
CPT/HCPCS: 71046; 71100; 71250; 94664

== ENCOUNTER 2018-02-19 11:26 | Emergency (ER) | payer MEDICAID ==
[~2018-02-19] VITALS: Ht 154.9 cm; Wt 86.2 kg
[~2018-02-19 11:26] MED LIST changes: -POLY255P; +POLY255P16
[2018-02-19] MEDS ORDERED: fentaNYL INJECTION 100 MCG/2 ML AMP IVP STA (11:58)
[2018-02-19] MEDS ORDERED: ONDANSETRON 4 MG/2 ML (SDV) Z0FRAN IVP ONE (12:00)
[2018-02-19 12:02] LABS: BILIRUBIN,URINE NEGATIVE (NEGATIVE); CLARITY,URINE CLEAR; COLOR,URINE YELLOW; GLUCOSE, URINE (UA) NEGATIVE (NEGATIVE); KETONES,URINE NEGATIVE (NEGATIVE); LEUKOCYTE ESTERASE ,URINE NEGATIVE (NEGATIVE); NITRITE,URINE NEGATIVE (NEGATIVE); PH,URINE 8 (5-9); PROTEIN,URINE NEGATIVE (NEGATIVE); UROBILINOGEN,URINE NORMAL (NORMAL)
[2018-02-19] MEDS ORDERED: NS IV 1000 ML 1,000 ML IV SCH (12:03)
--- NOTE | 2018-02-19 12:03 | ED Abdominal Pain ---
General Chief Complaint: Abdominal/GI Problems Stated Complaint: ABD PAIN Nursing Triage Note: PT BEGAN EXPERIENCING NAUSEA AND VOMITING WITH RLQ ABDOMINAL PAIN THAT RADIATES TO THE R FLANK. TODAY PRESENTS TO THE ED AMBULATORY, STATES SHE HAS A HX OF IBS , BUT THE PAIN DOES NOT FEEL LIKE PAST IBS EPISODES. REPORTS POOR EATING AND DRINKING TOLERENCE. Sepsis Screen: No Definite Risk History of Present Illness Date Seen by Provider: Feb 19, 2018 Time Seen by Provider: 11:55 Initial Comments 32-year-old -Tog[place] female presents for acute abdominal pain. She states the symptoms began yesterday morning, she has been vomiting multiple times since then. She did attempt to drink coffee this a.m. but vomited. She reports inability to keep solid food or liquid in. She has mild nausea and no diarrhea. She has not taken any medication for the pain or nausea. She denies previous abdominal surgeries. She did have a colonoscopy in the last year by Dr. Llamas. She has an IVC filter for history of clots. History of CVA with right-sided lower extremity weakness, she denies any recent falls. She was seen last month for a fall with rib pain. She is wearing a brace on the right lower extremity. History of diverticulitis in the past. Timing/Duration: 1-2 Days Severity/Quality: Moderate (8/10) Location: Generalized Abdomen Radiation: No Radiation Associated Symptoms: Denies Symptoms; No Back Pain, No Chest Pain, No Fever/ Chills, No Fatigue, No Headache; Nausea/Vomiting; No Swelling/Mass in Abdomen, No Syncope, No Weakness Allergies and Home Medications Allergies Coded Allergies: latex (Verified Allergy, Severe, BLISTERS, 08/24/17) penicillin (Verified Allergy, Severe, ITCHING, 08/24/17) Sulfa (Sulfonamide Antibiotics) (Verified Allergy, Unknown, RASH, 08/24/17) Home Medications Cyclobenzaprine HCl 10 Mg Tablet, 10 MG PO Q8H Prescribed by: JUAN GONZALEZ on 01/27/18 0238 Hyoscyamine Sulfate 0.125 Mg Tab.subl, 0.125 MG SL Q6H Prescribed by: PERICO CLAYTON on 02/19/18 1328 Naproxen 500 Mg Tablet, 500 MG PO BID Prescribed by: JUAN GONZALEZ on 01/27/18 0238 Ondansetron HCl 4 Mg Tab, 4 MG PO Q8H Prescribed by: PERICO CLAYTON on 02/19/18 1328 Tramadol HCl 50 Mg Tablet, 50 MG PO Q4H Prescribed by: JUAN GONZALEZ on 01/27/18 0238 Patient Home Medication List Home Medication List Reviewed: Yes Review of Systems Review of Systems Constitutional: no symptoms reported, see HPI Gastrointestinal: See HPI, Abdominal Pain; Denies Constipated, Denies Diarrhea , Denies Difficulty Swallowing; Nausea, Poor Appetite, Poor Fluid Intake, Vomiting All Other Systems Reviewed Negative Unless Noted: Yes Past Tgledcs-Cdwceb-Znkkjl Hx Past Med/Social Hx: Reviewed Nursing Past Med/Soc Hx Patient Social History Alcohol Beverage of Choice: Other Type Used: Cigarettes 2nd Hand Smoke Exposure: Yes Recent Foreign Travel: No Contact w/Someone Who Travel: No Recent Infectious Disease Expo: No Recent Hopitalizations: No Immunizations Up To Date Tetanus Booster (TDap): Less than 5yrs Date of Pneumonia Vaccine: Dec 10, 2014 Seasonal Allergies Seasonal Allergies: Yes Past Medical History Surgeries: Yes Cardiac, Orthopedic, 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, Vascular Surgery Respiratory: Yes (CHILDHOOD) Asthma Cardiac: Yes Congenital Heart Disease, Deep Vein Thrombosis, Palpitations Neurological: Yes Headaches /Migraines, Neuropathy, Seizure Disorder, Stroke : No Last Menstrual Period: Feb 18, 2018 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 Disorders: No Female 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 Disorders: Denies [employer] History: IUD, 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 Sexually Transmitted Disease: No HIV/AIDS: No Genitourinary: Yes Kidney Stones Gastrointestinal: Yes Colitis, Irritable Bowel Musculoskeletal: Yes Degenerate Disk Disease, Scoliosis, Chronic Back Pain, Fractures Endocrine: Yes (DIET CONTROLLED DIABETIC) Diabetes, Non-Insulin dep HEENT: Yes ("LEGALLY BLIND" ) Loss of Vision: Bilateral Hearing Impairment: Denies Cancer: No Psychosocial: Yes (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) ADD/ADHD, Anxiety, PTSD, Suicide Attempts, Bipolar, Depression Integumentary: No Blood Disorders: No Adverse Reaction/Blood Tranf: No (N/A) Family Medical History Antiphospholipid syndrome 19 MOTHER Diabetes mellitus 19 FATHER G8 BROTHER FH: aneurysm 19 FATHER FH: lupus 19 MOTHER FHx: congestive heart failure 19 FATHER FHx: renal failure 19 MOTHER Heart murmur 19 MOTHER Lupus anticoagulant disorder 19 MOTHER Patent foramen ovale 19 FATHER Barry syndrome G8 SISTER No Pertinent Family Hx Physical Exam Vital Signs Vital Signs - First Documented 02/19/18 11:38 Temp 97.5 Pulse 85 Resp 22 B/P (MAP) 133/89 (104) Pulse Ox 100 O2 Delivery Room Air Capillary Refill : Less Than 3 Seconds Height/Weight/BMI Height: 5'1.00" Weight: 190lbs. 1.0oz. 86.797719dw; 37.8 BMI Method:Stated General Appearance: WD/WN, no apparent distress HEENT: PERRL/EOMI, normal ENT inspection, TMs normal, pharynx normal Neck: non-tender, full range of motion, supple Respiratory: chest non-tender, lungs clear, normal breath sounds, no respiratory distress, no accessory muscle use Cardiovascular: normal peripheral pulses, regular rate, rhythm, no edema Gastrointestinal: normal bowel sounds, soft; No distended; guarding; No rebound ; tenderness (Generalized in all 4 Quad. ); No hernia, No mass, No hepatomegaly , No spleenomegaly; other (Neg Delaney sign. ) Extremities: normal range of motion, non-tender, normal inspection, no pedal edema, no calf tenderness, normal capillary refill Back: normal inspection, no CVA tenderness, no vertebral tenderness Neurologic/Psychiatric: no motor/sensory deficits, alert, normal mood/affect, oriented x 3 Skin: normal color, warm/dry, other (Skin Turgor and Cap refil <2 sec. ) Lymphatic: no adenopathy Progress/Results/Core Measures Results/Orders Lab Results Laboratory Tests Test 02/19/18 11:55 02/19/18 12:08 Range/Units Urine Color YELLOW Urine Clarity CLEAR Urine pH 8 5-9 Urine Specific [place] 1.010 L 1.016-1.022 Urine Protein NEGATIVE NEGATIVE Urine Glucose (UA) NEGATIVE NEGATIVE Urine Ketones NEGATIVE NEGATIVE Urine Nitrite NEGATIVE NEGATIVE Urine Bilirubin NEGATIVE NEGATIVE Urine Urobilinogen NORMAL NORMAL MG/DL Urine Leukocyte Esterase NEGATIVE NEGATIVE Urine RBC (Auto) 1+ H NEGATIVE Urine RBC NONE /HPF Urine WBC RARE /HPF Urine Squamous Epithelial Cells 2-5 /HPF Urine Crystals NONE /LPF Urine Bacteria TRACE /HPF Urine Casts NONE /LPF Urine Mucus NEGATIVE /LPF Urine Culture Indicated NO White Blood Count 7.3 4.3-11.0 10^3/uL Red Blood Count 4.84 4.35-5.85 10^6/uL Hemoglobin 12.4 11.5-16.0 G/DL Hematocrit 39 35-52 % Mean Corpuscular Volume 81 80-99 FL Mean Corpuscular Hemoglobin 26 25-34 PG Mean Corpuscular Hemoglobin Concent 32 32-36 G/DL Red Cell Distribution Width 17.7 H 10.0-14.5 % Platelet Count 351 130-400 10^3/uL Mean Platelet Volume 9.9 7.4-10.4 FL Neutrophils (%) (Auto) 49 42-75 % Lymphocytes (%) (Auto) 42 12-44 % Monocytes (%) (Auto) 7 0-12 % Eosinophils (%) (Auto) 2 0-10 % Basophils (%) (Auto) 0 0-10 % Neutrophils # (Auto) 3.6 1.8-7.8 X 10^3 Lymphocytes # (Auto) 3.1 1.0-4.0 X 10^3 Monocytes # (Auto) 0.5 0.0-1.0 X 10^3 Eosinophils # (Auto) 0.2 0.0-0.3 10^3/uL Basophils # (Auto) 0.0 0.0-0.1 10^3/uL Sodium Level 136 135-145 MMOL/L Potassium Level 4.1 3.6-5.0 MMOL/L Chloride Level 106 98-107 MMOL/L Carbon Dioxide Level 17 L 21-32 MMOL/L Anion Gap 13 5-14 MMOL/L Blood Urea Nitrogen 8 7-18 MG/DL Creatinine 0.67 0.60-1.30 MG/DL Estimat Glomerular Filtration Rate > 60 BUN/Creatinine Ratio 12 Glucose Level 100 70-105 MG/DL Calcium Level 10.0 8.5-10.1 MG/DL Corrected Calcium 9.7 8.5-10.1 MG/DL Total Bilirubin 0.4 0.1-1.0 MG/DL Aspartate Amino Transf (AST/SGOT) 14 5-34 U/L Alanine Aminotransferase (ALT/SGPT) 12 0-55 U/L Alkaline Phosphatase 46 40-136 U/L Total Protein 7.9 6.4-8.2 GM/DL Albumin 4.4 3.2-4.5 GM/DL Amylase Level 66 25-125 U/L Lipase 43 8-78 U/L My Orders Orders - PERICO CLAYTON Ua Culture If Indicated (02/19/18 11:41) Comprehensive Metabolic Panel (02/19/18 11:58) Lipase (02/19/18 11:58) Amylase (02/19/18 11:58) Urine Bedside (02/19/18 11:58) Cbc With Automated Diff (02/19/18 11:58) Ondansetron Injection (Zofran Injectio (02/19/18 12:00) Fentanyl Injection (Sublimaze Injection (02/19/18 11:58) Saline Lock/Iv-Start (02/19/18 12:03) Ns Iv 1000 Ml (Sodium Chloride 0.9%) (02/19/18 12:03) Hyoscyamine Sl Tablet (Levsin Sl Tablet) (02/19/18 13:15) Ct Abdomen/Pelvis Wo (02/19/18 13:47) Medications Given in ED Current Medications Medications Dose Ordered Sig/Diomedes Route Start Time Stop Time Status Last Admin Dose Admin Hyoscyamine Sulfate 0.125 mg ONCE ONCE PO 02/19/18 13:15 02/19/18 13:16 DC 02/19/18 13:29 0.125 MG Ondansetron HCl 8 mg ONCE ONCE IVP 02/19/18 12:00 02/19/18 12:01 DC 02/19/18 12:19 8 MG Vital Signs/I&O 02/19/18 02/19/18 11:38 14:49 Temp 97.5 98.2 Pulse 85 62 Resp 22 18 B/P (MAP) 133/89 (104) 116/79 (91) Pulse Ox 100 99 O2 Delivery Room Air Room Air Blood Pressure Mean: 104 Progress Progress Note : Time: 11:55 Progress Note Initial evaluation completed, will complete Labs, Zofran for nausea, Fentanyl for pain and IV fluids. Will monitor and determine need for diagnostics based on labs. Patient is afebrile and normotensive and HR 85. 1235 Urine HCG neg. WBC 7.3, UA WNL neg for Ketones; CMP WNL, no electrolyte changes. Symptoms have improved, no vomiting since admission, pain slightly better. Less pain during palpation, continues to have neg rebound. No indications for CT. 1300 Will give Hyoscyamine for continued mild abd pain and ice chips. 1345 discussed discharge planning with the patient, she is concerned with continued dull aching in her lower quadrants. Discussed this is probably related to her IBS or the retching for 2 days. She is uncomfortable going home without a CT scan, that something "life-threatening that I could from" is present. Discussed the risks versus benefits of this, also based on her normal lab exam, I do not feel it is warranted and additional radiation exposure. Patient verbalized concern of underlying abdominal pain despite her normal labs. Due to her persistence and anxiety to return home, we will obtain a CT to rule out any additional abdominal pathology. 1425 CT exam normal. Discharge instructions and return precautions reviewed with the patient. Diagnostic Imaging Diagonstic Imaging: CT Plain Films/CT/US/NM/MRI: abdomen, pelvis Comments NAME: ANGELCOLTON [facility] REC#: [id number] PHYSICIAN: PERICO CLAYTON CC: PERICO CLAYTON; HARSHAD KIRKLAND MD Page 2 of 2 RADIOLOGY REPORT VIA [facility], [place], [place] CC: PERICO CLAYTON; HARSHAD KIRKLAND MD Page 1 of 2 RADIOLOGY REPORT NAME: ANGELCOLTON R [facility] REC#: [id number] PT STATUS: REG ER : 1985 PHYSICIAN: PERICO CLAYTON ADMIT DATE: 02/19/18/ER Signed Date of Exam: 02/19/18 CT ABDOMEN/PELVIS WO PROCEDURE: CT abdomen and pelvis without contrast. TECHNIQUE: Multiple contiguous axial images were obtained through the abdomen and pelvis without the use of intravenous contrast. INDICATION: Right lower quadrant pain. COMPARISON: 07/31/2017. FINDINGS: Evaluation of the abdominal viscera is mildly limited without contrast. Lower chest: The lung bases are clear. No pericardial or pleural effusion. Peritoneum: No free intraperitoneal air or fluid. Liver and biliary system: Unenhanced liver is normal. The gallbladder is normal. No biliary duct dilation. Spleen and Pancreas: Spleen is normal. Unenhanced pancreas is grossly normal. Adrenals: Normal. tract: No renal or ureteral calculi. No obstructive uropathy. Uterus is normal in appearance. An IUD appears appropriately positioned. Subcentimeter low-density ovarian cysts favor follicles. GI tract: Stomach is decompressed. No bowel obstruction. No pericolonic inflammatory changes. Normal appendix. Vasculature and Lymph nodes: Normal caliber aorta. An IVC filter is in good position. No abdominal or pelvic lymphadenopathy. Musculoskeletal: No concerning osseous lesion. IMPRESSION: 1. No urinary tract calculi or obstructive uropathy. 2. Normal appendix. No acute inflammatory process in the abdomen. Dictated by: Dictated on workstation # [id number] Dict: 02/19/18 1413 Trans: 02/19/18 1424 Interpreted by: HARSHAD KIRKLAND MD Electronically signed by: HARSHAD KIRKLAND MD 02/19/18 1424 Departure Impression Primary Impression: Gastroenteritis Additional Impression: Abdominal pain Qualified Codes: R10.84 - Generalized abdominal pain Disposition: 01 HOME, SELF-CARE Condition: Improved Departure-Patient Inst. Decision time for Depature: 13:25 Referrals: HIEU YAP MD (PCP/Family) Primary Care Physician Patient Instructions: Acute Abdomen (Belly Pain), Adult (DC), Nausea and Vomiting, Adult (DC) Add. Discharge Instructions: Clear liquid diet for the next 6-8 hours. Then may advance to bland diet as tolerated. Takes Zofran every 6-8 hours as needed for nausea/vomiting. You may take Tylenol 1000 mg every 8 hours for pain. Take the hyoscyamine smear and every 8 hours as needed. Follow up with your primary care provider in 2-3 days if symptoms are not improving, sooner if symptoms worsen. Return to emergency department for nausea and vomiting not improved with this Zofran, temperature greater than 101, worsening abdominal pain, or new problems. All discharge instructions reviewed with patient and/or family. Voiced understanding. Scripts Hyoscyamine Sulfate (Hyoscyamine Sulfate) 0.125 Mg Tab.subl 0.125 MG SL Q6H, #12 TAB 0 Refills Prov: PERICO CLAYTON 02/19/18 Ondansetron HCl (Zofran) 4 Mg Tab 4 MG PO Q8H, #6 TAB 0 Refills Prov: PERICO CLAYTON 02/19/18 Copy Copies To 1: HIEU YAP MD, AMY ARNP Feb 19, 2018 12:03
[2018-02-19 12:12] LABS: BACTERIA,URINE TRACE /HPF; WBC,URINE RARE /HPF
[2018-02-19 12:17] LABS: BASOPHILS % (AUTO) 0 % (0-10); EOSINOPHILS # (AUTO) 0.2 10^3/uL (0.0-0.3); EOSINOPHILS % (AUTO) 2 % (0-10); HEMATOCRIT 39 % (35-52); HEMOGLOBIN 12.4 G/DL (11.5-16.0); LYMPHOCYTES # (AUTO) 3.1 X 10^3 (1.0-4.0); LYMPHOCYTES % (AUTO) 42 % (12-44); MEAN CORPUSCULAR HEMOGLOBIN 26 PG (25-34); MEAN CORPUSCULAR HGB CONC 32 G/DL (32-36); MEAN CORPUSCULAR VOLUME 81 FL (80-99); MEAN PLATELET VOLUME 9.9 FL (7.4-10.4); MONOCYTES # (AUTO) 0.5 X 10^3 (0.0-1.0); MONOCYTES % (AUTO) 7 % (0-12); NEUTROPHILS # (AUTO) 3.6 X 10^3 (1.8-7.8); NEUTROPHILS % (AUTO) 49 % (42-75); PLATELET COUNT 351 10^3/uL (130-400); RED BLOOD COUNT 4.84 10^6/uL (4.35-5.85); RED CELL DISTRIBUTION WIDTH 17.7 % (10.0-14.5); WHITE BLOOD COUNT 7.3 10^3/uL (4.3-11.0)
[2018-02-19 12:35] LABS: ALANINE AMINOTRANSFERASE 12 U/L (0-55); ALBUMIN 4.4 GM/DL (3.2-4.5); ALKALINE PHOSPHATASE 46 U/L (40-136); AMYLASE 66 U/L (25-125); BILIRUBIN,TOTAL 0.4 MG/DL (0.1-1.0); BUN/CREATININE RATIO 12; CARBON DIOXIDE 17 MMOL/L (21-32); CHLORIDE 106 MMOL/L (98-107); CREATININE SERUM 0.67 MG/DL (0.60-1.30); GFR ESTIMATED > 60; GLUCOSE 100 MG/DL (70-105); LIPASE 43 U/L (8-78); POTASSIUM 4.1 MMOL/L (3.6-5.0); SODIUM 136 MMOL/L (135-145); TOTAL PROTEIN 7.9 GM/DL (6.4-8.2)
[2018-02-19] MEDS ORDERED: HYOSCYAMINE 0.125 MG (LEVSIN) TAB PO ONE (13:15)
[2018-02-19] MEDS ORDERED: HYOS-19 SL (13:28)
[2018-02-19] MEDS ORDERED: ONDN4T PO (13:28)
--- NOTE | 2018-02-19 14:20 | Diagnostic Imaging Report ---
PROCEDURE: CT abdomen and pelvis without contrast. TECHNIQUE: Multiple contiguous axial images were obtained through the abdomen and pelvis without the use of intravenous contrast. INDICATION: Right lower quadrant pain. COMPARISON: 07/31/2017. FINDINGS: Evaluation of the abdominal viscera is mildly limited without contrast. Lower chest: The lung bases are clear. No pericardial or pleural effusion. Peritoneum: No free intraperitoneal air or fluid. Liver and biliary system: Unenhanced liver is normal. The gallbladder is normal. No biliary duct dilation. Spleen and Pancreas: Spleen is normal. Unenhanced pancreas is grossly normal. Adrenals: Normal. tract: No renal or ureteral calculi. No obstructive uropathy. Uterus is normal in appearance. An IUD appears appropriately positioned. Subcentimeter low-density ovarian cysts favor follicles. GI tract: Stomach is decompressed. No bowel obstruction. No pericolonic inflammatory changes. Normal appendix. Vasculature and Lymph nodes: Normal caliber aorta. An IVC filter is in good position. No abdominal or pelvic lymphadenopathy. Musculoskeletal: No concerning osseous lesion. IMPRESSION: 1. No urinary tract calculi or obstructive uropathy. 2. Normal appendix. No acute inflammatory process in the abdomen. Dictated by: Dictated on workstation # [id number]
[2018-02-19 14:49] VITALS: BP 116/79
== END 2018-02-19 14:52 | disposition home or self-care (01) ==
LOC: EDUNIT# 11:26 → ER 11:27
DX: K52.9 Noninfective gastroenteritis and colitis, unspecified (principal); J45.909 Unspecified asthma, uncomplicated; I25.10 Atherosclerotic heart disease of native coronary artery without angina pectoris; G43.909 Migraine, unspecified, not intractable, without status migrainosus; G40.909 Epilepsy, unspecified, not intractable, without status epilepticus; E11.40 Type 2 diabetes mellitus with diabetic neuropathy, unspecified; F90.9 Attention-deficit hyperactivity disorder, unspecified type; F41.9 Anxiety disorder, unspecified; F43.10 Post-traumatic stress disorder, unspecified; F31.9 Bipolar disorder, unspecified; Z91.5 Personal history of self-harm; Z82.49 Family history of ischemic heart disease and other diseases of the circulatory system; Z87.442 Personal history of urinary calculi; Z97.5 Presence of (intrauterine) contraceptive device; Z86.718 Personal history of other venous thrombosis and embolism; Z91.040 Latex allergy status; Z88.0 Allergy status to penicillin; Z88.2 Allergy status to sulfonamides; Z86.73 Personal history of transient ischemic attack (TIA), and cerebral infarction without residual deficits; Z87.19 Personal history of other diseases of the digestive system; Z95.828 Presence of other vascular implants and grafts; Z77.22 Contact with and (suspected) exposure to environmental tobacco smoke (acute) (chronic); Z98.51 Tubal ligation status
CPT/HCPCS: 36415; 74176; 80053; 81000; 82150; 83690; 84703; 85025

== ENCOUNTER 2018-03-03 22:16 | Observation (INO) | payer MEDICAID ==
[~2018-03-03] VITALS: Ht 154.9 cm; Wt 107.6 kg
[~2018-03-03 22:16] MED LIST changes: -GABA-488; +HYOS-19 SL; -LURA60TA2; +LURA60TA2 PO; -METO50TA15; +METO50TA15 PO
[2018-03-03] MEDS ORDERED: NS IV 1000 ML 1,000 ML IV SCH (22:29)
[2018-03-03 22:43] LABS: HEMOGLOBIN 11.9 G/DL (11.5-16.0); MEAN PLATELET VOLUME 9.5 FL (7.4-10.4); RED BLOOD COUNT 4.49 10^6/uL (4.35-5.85); RED CELL DISTRIBUTION WIDTH 18.2 % (10.0-14.5)
--- NOTE | 2018-03-03 22:43 | ED Trauma-Multisystem ---
General Stated Complaint: FALL Source of Information: Patient, EMS Exam Limitations: Intoxication, Physical Impairments History of Present Illness Date Seen by Provider: Mar 03, 2018 Time Seen by Provider: 22:02 Initial Comments Patient presents to ER by EMS with chief complaint that she had her friend whose house she was at call EMS because she fell. There is any details. The patient was found face down unconscious on the floor breathing. By the time fire rescue to move her and answering some questions. She's not able to talk well because of left sided face and jaw hurts to move. She says she had multiple beers tonight. She denies recreational drug use or smoking. She says she does not member what happens tonight in has declined multiple times to have police come by and take her statement. She says she had a history of dropfoot in her right leg secondary to compartment syndrome due to a fracture and so she has no sensation or ability to move her right foot. She says she has a Mirena IUD in place. Nursing reports that later the patient told her that this was not a fall but are not going to details and still declined having a police report made. Allergies and Home Medications Allergies Coded Allergies: latex (Verified Allergy, Severe, BLISTERS, 08/24/17) penicillin (Verified Allergy, Severe, ITCHING, 08/24/17) Sulfa (Sulfonamide Antibiotics) (Verified Allergy, Unknown, RASH, 08/24/17) Home Medications Cyclobenzaprine HCl 10 Mg Tablet, 10 MG PO Q8H Prescribed by: JUAN GONZALEZ on 01/27/18237 Hyoscyamine Sulfate 0.125 Mg Tab.subl, 0.125 MG SL Q6H Prescribed by: PERICO CLAYTON on 02/19/181327 Naproxen 500 Mg Tablet, 500 MG PO BID Prescribed by: JUAN GONZALEZ on 01/27/18237 Ondansetron HCl 4 Mg Tab, 4 MG PO Q8H Prescribed by: PERICO CLAYTON on 02/19/181327 Tramadol HCl 50 Mg Tablet, 50 MG PO Q4H Prescribed by: JUAN GONZALEZ on 01/27/18237 Patient Home Medication List Home Medication List Reviewed: Yes Review of Systems Review of Systems Constitutional: No chills, No fever Eyes: Denies Blurred Vision, Denies Drainage; Pain Ears: Denies Dizziness, Denies Pain Nose: Bloody Discharge; No Clear Discharge Mouth: Bloody Discharge; No Clear Discharge Throat: No Aphonia, No Hoarse, No Muffled; Neck Stiffness, Pain (neck) Respiratory: No cough, No phlegm Cardiovascular: Denies Chest Pain, Denies Palpitations, Denies Syncope Gastrointestinal: No abdominal pain, No constipation, No diarrhea, No nausea Genitourinary: No discharge, No dysuria Musculoskeletal: joint pain (Left knee and hips) Past Xjawmri-Ndgmej-Oyyofd Hx Patient Social History Alcohol Use: Regular Use Alcohol Beverage of Choice: Other Recreational Drug Use: No Smoking Status: Current Everyday Smoker Type Used: Cigarettes 2nd Hand Smoke Exposure: Yes Recent Foreign Travel: No Contact w/Someone Who Travel: No Recent Hopitalizations: No Immunizations Up To Date Tetanus Booster (TDap): Less than 5yrs PED Vaccines UTD: Yes Date of Pneumonia Vaccine: Dec 10, 2014 Seasonal Allergies Seasonal Allergies: Yes Past Medical History Surgeries: Yes (ivc filter placed R femoral) Cardiac, Orthopedic, 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, Vascular Surgery Respiratory: Yes (CHILDHOOD) Asthma Cardiac: Yes Congenital Heart Disease, Deep Vein Thrombosis, Palpitations Neurological: Yes Headaches /Migraines, Neuropathy, Seizure Disorder, Stroke 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 Disorders: No Female 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 Disorders: Denies 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: 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, 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 Sexually Transmitted Disease: No HIV/AIDS: No Genitourinary: Yes Kidney Stones Gastrointestinal: Yes Colitis, Irritable Bowel Musculoskeletal: Yes (compartment syndrome ) Degenerate Disk Disease, Scoliosis, Chronic Back Pain, Fractures Endocrine: Yes (DIET CONTROLLED DIABETIC) Diabetes, Non-Insulin dep HEENT: Yes ("LEGALLY BLIND" ) Loss of Vision: Bilateral Hearing Impairment: Denies Cancer: No Psychosocial: Yes (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) ADD/ADHD, Anxiety, PTSD, Suicide Attempts, Bipolar, Depression Integumentary: No Blood Disorders: No Adverse Reaction/Blood Tranf: No (N/A) Family Medical History Antiphospholipid syndrome 19 MOTHER Diabetes mellitus 19 FATHER G8 BROTHER FH: aneurysm 19 FATHER FH: lupus 19 MOTHER FHx: congestive heart failure 19 FATHER FHx: renal failure 19 MOTHER Heart murmur 19 MOTHER Lupus anticoagulant disorder 19 MOTHER Patent foramen ovale 19 FATHER Barry syndrome G8 SISTER No Pertinent Family Hx Physical Exam Vital Signs Vital Signs - First Documented 03/03/18 22:16 Temp 98.2 Pulse 101 Resp 19 B/P (MAP) 111/83 (92) Pulse Ox 100 O2 Delivery Room Air Height, Weight, BMI Height: 5'1.00" Weight: 190lbs. 1.0oz. 86.037298wn; 37.8 BMI Method:Stated General Appearance: Anxious, Moderate Distress, Obese Head: Contusions, Ecchymosis (Left face with edema), Raccoon Eyes, Swelling, Tenderness (Left face), Other (Negative for hemotympanum); No Isaacs's Sign Eyes: Right Eye Normal Inspection, Right Eye PERRL, Right Eye EOMI; Left Eye Other (Swollen shut soft tissue of the left orbit unable to see the eye) Ears, Nose, Throat: Hearing Grossly Normal; No Clear Fluid (Nose); Other (She is holding her left jaw on traction and is very tender to palpation over the left mid face) Neck: Non Tender, Supple, Other (With c-collar in place) Cardiovascular: Regular Rate, Rhythm, No Edema, Normal Peripheral Pulses Respiratory: Chest Non Tender, Lungs Clear, Normal Breath Sounds, No Accessory Muscle Use, No Respiratory Distress Gastrointestinal: Normal Bowel Sounds, Soft, Tenderness (Suprapubic region and left flank lower abdomen) Extremity: Normal Capillary Refill, Normal Inspection, No Pedal Edema Neurologic/Psychiatric: Alert, Motor Weakness (Right knee down but), Sensory Deficit (Right knee down the foot decreased sensation and motor weakness) Lucille Coma Score Best Eye Response (Lucille): (3) Open to Voice Best Verbal Response (Lucille): (5) Oriented Best Motor Response (Lucille): (6) Obeys Commands Lucille Total: 15 Progress/Results/Core Measures Results/Orders Lab Results Laboratory Tests Test 03/03/18 22:35 03/03/18 22:48 Range/Units White Blood Count 10.0 4.3-11.0 10^3/uL Red Blood Count 4.49 4.35-5.85 10^6/uL Hemoglobin 11.9 11.5-16.0 G/DL Hematocrit 37 35-52 % Mean Corpuscular Volume 83 80-99 FL Mean Corpuscular Hemoglobin 27 25-34 PG Mean Corpuscular Hemoglobin Concent 32 32-36 G/DL Red Cell Distribution Width 18.2 H 10.0-14.5 % Platelet Count 400 130-400 10^3/uL Mean Platelet Volume 9.5 7.4-10.4 FL Sodium Level 143 135-145 MMOL/L Potassium Level 3.8 3.6-5.0 MMOL/L Chloride Level 110 H 98-107 MMOL/L Carbon Dioxide Level 19 L 21-32 MMOL/L Anion Gap 14 5-14 MMOL/L Blood Urea Nitrogen 8 7-18 MG/DL Creatinine 0.90 0.60-1.30 MG/DL Estimat Glomerular Filtration Rate > 60 BUN/Creatinine Ratio 9 Glucose Level 99 70-105 MG/DL Calcium Level 9.2 8.5-10.1 MG/DL Total Bilirubin 0.1 0.1-1.0 MG/DL Direct Bilirubin 0.1 0.0-0.3 MG/DL Indirect Bilirubin 0.0 MG/DL Aspartate Amino Transf (AST/SGOT) 18 5-34 U/L Alanine Aminotransferase (ALT/SGPT) 17 0-55 U/L Alkaline Phosphatase 45 40-136 U/L Total Protein 7.7 6.4-8.2 GM/DL Albumin 4.4 3.2-4.5 GM/DL Serum Test, Qualitative NEGATIVE NEGATIVE Serum Alcohol 220 H <10 MG/DL Urine Color YELLOW Urine Clarity SLIGHTLY CLOUDY Urine pH 5 5-9 Urine Specific [place] 1.020 1.016-1.022 Urine Protein 2+ H NEGATIVE Urine Glucose (UA) NEGATIVE NEGATIVE Urine Ketones NEGATIVE NEGATIVE Urine Nitrite NEGATIVE NEGATIVE Urine Bilirubin NEGATIVE NEGATIVE Urine Urobilinogen NORMAL NORMAL MG/DL Urine Leukocyte Esterase NEGATIVE NEGATIVE Urine RBC (Auto) NEGATIVE NEGATIVE Urine RBC NONE /HPF Urine WBC NONE /HPF Urine Squamous Epithelial Cells 0-2 /HPF Urine Crystals NONE /LPF Urine Bacteria TRACE /HPF Urine Casts NONE /LPF Urine Mucus SMALL H /LPF Urine Culture Indicated NO Urine Opiates Screen NEGATIVE NEGATIVE Urine Oxycodone Screen NEGATIVE NEGATIVE Urine Methadone Screen NEGATIVE NEGATIVE Urine Propoxyphene Screen NEGATIVE NEGATIVE Urine Barbiturates Screen NEGATIVE NEGATIVE Ur Tricyclic Antidepressants Screen NEGATIVE NEGATIVE Urine Phencyclidine Screen NEGATIVE NEGATIVE Urine Amphetamines Screen POSITIVE H NEGATIVE Urine Methamphetamines Screen NEGATIVE NEGATIVE Urine Benzodiazepines Screen NEGATIVE NEGATIVE Urine Cocaine Screen NEGATIVE NEGATIVE Urine Cannabinoids Screen NEGATIVE NEGATIVE My Orders Orders - MAURIZIO THURMAN Cbc No Diff (03/03/18 22:29) Basic Metabolic Panel (03/03/18 22:29) Liver Panel (03/03/18 22:29) Alcohol (03/03/18:29) Hcg,Qualitative Serum (03/03/18:29) Ua Culture If Indicated (03/03/18:29) Chest 1 View, Ap/Pa Only (03/03/18:29) Pelvis (03/03/18:29) End Tidal Co2 (03/03/18:29) Monitor-Rhythm Ecg Trace Only (03/03/18:29) Saline Lock/Iv-Start (03/03/18:29) Ct Abdomen/Pelvis W (03/03/18 22:29) Ct Head/Face/Cervical Wo (03/03/18:29) Knee, Left, 3 Views (03/03/18:) Straight Cath For Spec.-Adult (03/03/18:) Drug Screen Stat (Urine) (03/03/18:29) Saline Lock/Iv-Start (03/03/18:29) Ns Iv 1000 Ml (Sodium Chloride 0.9%) (03/03/18:29) Ondansetron Injection (Zofran Injectio (03/03/18 22:45) Iohexol Injection (Omnipaque 350 Mg/Ml 1 (03/03/18 23:45) Contrast Received (Contrast Received) (03/03/18 23:45) Ns (Ivpb) (Sodium Chloride 0.9%) (03/03/18 23:45) Medications Given in ED Current Medications Medications Dose Ordered Sig/Diomedes Route Start Time Stop Time Status Last Admin Dose Admin Iohexol 100 ml ONCE ONCE IV 03/03/18 23:45 03/03/18 23:46 DC 03/03/18 23:37 100 ML Ondansetron HCl 4 mg ONCE ONCE IVP 03/03/18 22:45 03/03/18 22:46 DC 03/03/18 22:57 4 MG Sodium Chloride 250 ml ONCE ONCE IV 03/03/18 23:45 03/03/18 23:46 DC 03/03/18 23:37 80 ML Vital Signs/I&O 03/03/18 22:16 Temp 98.2 Pulse 101 Resp 19 B/P (MAP) 111/83 (92) Pulse Ox 100 O2 Delivery Room Air Progress Progress Note : Time: 23:59 Progress Note Bedside FAST exam was negative 4 quadrants. C-collar is removed after reviewing radiographical evidence and finding no fracture At 2359. Diagnostic Imaging Diagonstic Imaging: Xray Plain Films/CT/US/NM/MRI: chest (1v) Comments No acute cardiopulmonary processes noted.Implanted cardiac device. Reviewed: Reviewed by Me Diagonstic Imaging: Xray Plain Films/CT/US/NM/MRI: pelvis Comments No acute osseous abnormalities noted on one view pelvis. Spine unremarkable. Nonspecific bowel gas pattern noted. Reviewed: Reviewed by Me Diagonstic Imaging: Xray Plain Films/CT/US/NM/MRI: knee (right) Reviewed: Reviewed by Me Diagonstic Imaging: CT Plain Films/CT/US/NM/MRI: c-spine, head (face) Comments No acute findings and the CT of the head without contrast. No acute findings and CT of the C-spine. Extensive left facial fractures involving left medial wall of the orbit, floor of the orbit and left maxillary sinus. Retro-orbital air. Reviewed: Reviewed Night Hawk Study, Reviewed by Me Diagonstic Imaging: CT Plain Films/CT/US/NM/MRI: abdomen, pelvis (with contrast) Comments She has an IVC filter. No acute findings. Reviewed: Reviewed Night Hawk Study, Reviewed by Me Consults : Consults Notes Dr Koenig: Ear nose and throat from [facility], [place] recommends that as long as no evidence of entrapment that she would not be an urgent surgical case. Usually then they would follow her up outpatient in about a week in the clinic. Cover with antibiotics. Departure Communication (Admissions) Time/Spoke to Admitting Phy: 00:[phone] Discussed the case with trauma surgeon Dr. Llamas and he agrees to observe the patient overnight with consult social staff worker. Time/Spoke to Consulting Phy: 00:57 Discussed the case with Adele Hoffmann practitioner for ENT and she agrees to consult and see the patient the morning. Impression Primary Impression: Facial bone fracture Additional Impressions: Concussion Trauma Multiple ecchymoses of both upper arms Left knee pain Disposition: ADMITTED INPATIENT Condition: Stable Admissions Decision to Admit Reason: Admit from ER (Trauma) Decision to Admit/Date: Mar 04, 2018 Time/Decision to Admit Time: 01:00 Departure-Patient Inst. Referrals: HIEU YAP MD (PCP/Family) Primary Care Physician Copy Copies To 1: TU HARRIS TITUS J Mar 03, 2018 22:43
[2018-03-03] MEDS ORDERED: ONDANSETRON 4 MG/2 ML (SDV) Z0FRAN IVP ONE (22:45)
[2018-03-03 22:55] LABS: BILIRUBIN,URINE NEGATIVE (NEGATIVE); CLARITY,URINE SLIGHTLY CLOUDY; COLOR,URINE YELLOW; GLUCOSE, URINE (UA) NEGATIVE (NEGATIVE); KETONES,URINE NEGATIVE (NEGATIVE); LEUKOCYTE ESTERASE ,URINE NEGATIVE (NEGATIVE); NITRITE,URINE NEGATIVE (NEGATIVE); PH,URINE 5 (5-9); PROTEIN,URINE 2+ (NEGATIVE); UROBILINOGEN,URINE NORMAL (NORMAL)
[2018-03-03 23:02] LABS: ALANINE AMINOTRANSFERASE 17 U/L (0-55); ALBUMIN 4.4 GM/DL (3.2-4.5); ALKALINE PHOSPHATASE 45 U/L (40-136); BILIRUBIN,DIRECT 0.1 MG/DL (0.0-0.3); BILIRUBIN,TOTAL 0.1 MG/DL (0.1-1.0); BUN/CREATININE RATIO 9; CALCIUM 9.2 MG/DL (8.5-10.1); CARBON DIOXIDE 19 MMOL/L (21-32); CHLORIDE 110 MMOL/L (98-107); GFR ESTIMATED > 60; GLUCOSE 99 MG/DL (70-105); POTASSIUM 3.8 MMOL/L (3.6-5.0); SODIUM 143 MMOL/L (135-145); TOTAL PROTEIN 7.7 GM/DL (6.4-8.2)
[2018-03-03 23:06] LABS: BACTERIA,URINE TRACE /HPF; SQUAMOUS EPITHELIAL CELL,UR 0-2 /HPF
[2018-03-03 23:07] LABS: AMPHETAMINE SCREEN, URINE POSITIVE (NEGATIVE); BARBITURATE SCREEN URINE NEGATIVE (NEGATIVE); BENZODIAZEPINES SCREEN URINE NEGATIVE (NEGATIVE); CANNABINOID SCREEN, URINE NEGATIVE (NEGATIVE); COCAINE SCREEN URINE NEGATIVE (NEGATIVE); METHADONE STAT NEGATIVE (NEGATIVE); METHAMPHETAMINE SCREEN URINE S NEGATIVE (NEGATIVE); OPIATE SCREEN URINE NEGATIVE (NEGATIVE); OXYCODONE STAT NEGATIVE (NEGATIVE); PROPOXYPHENE STAT NEGATIVE (NEGATIVE); TRICYCLIC ANTIDEPRESSANTS SCRE NEGATIVE (NEGATIVE)
[2018-03-03] MEDS ORDERED: IOHEXOL 350 MG/ML 100 ML (OMNIPAQUE 350) VIAL IV ONE (23:45)
[2018-03-03] MEDS ORDERED: RECEIVED CONTRAST (Hold Metformin) IV SCH (23:45)
[2018-03-03] MEDS ORDERED: NS 250 ML (IVPB) BAG IV ONE (23:45)
[2018-03-04] MEDS ORDERED: fentaNYL INJECTION 100 MCG/2 ML AMP ONE (02:30)
[2018-03-04] MEDS ORDERED: NS W/KCL 20 MEQ/L 1,000 ML IV ONE (02:33)
[2018-03-04] MEDS ORDERED: AZITHROMYCIN 500 MG/NS 250 ML IVPB IV ONE ×2 (02:45)
[2018-03-04] MEDS ORDERED: ACETAMINOPHEN 500 MG TAB (TYLENOL) PO PRN (02:45)
[2018-03-04] MEDS: fentaNYL INJECTION 100 MCG/2 ML AMP IV PRN ×3 (02:50→09:39)
[2018-03-04] MEDS: NS W/KCL 20 MEQ/L 1,000 ML IV SCH ×2 (02:50→09:41)
[2018-03-04] MEDS: KETOROLAC 30 MG/ML VIAL IV PRN ×2 (03:24→10:55)
[2018-03-04 04:29] VITALS: BP 96/54
[2018-03-04] MEDS: ONDANSETRON 4 MG/2 ML (SDV) Z0FRAN IV PRN ×2 (06:53→10:53)
--- NOTE | 2018-03-04 06:59 | Diagnostic Imaging Report ---
EXAMINATION: AP upright portable chest. INDICATION: Traumatic injury. COMPARISON: Multiple priors, most recent performed on 01/27/2018. FINDINGS: The lungs are clear and the pulmonary vasculature is normal. Loop recorder overlies the left upper chest. No pneumothorax or pleural effusion. The cardiomediastinal silhouette is normal. No acute osseous abnormality. Incompletely visualized IVC filter is demonstrated just to the right of the lumbar spine on the lower edge of the film. IMPRESSION: No acute chest disease. No significant change. Dictated by: Dictated on workstation # [id number]
--- NOTE | 2018-03-04 07:01 | Diagnostic Imaging Report ---
3 views of left knee. INDICATION: Fall. Swelling. FINDINGS: Alignment of the knee appears appropriate. There appears to be mild joint space loss within the medial compartment. There is no significant joint effusion. There is no suspicious bone lesion or evidence of an acute fracture. IMPRESSION: 1. No acute fracture, malalignment or joint effusion. There appears to be some mild joint space loss within the medial compartment of the left knee. Dictated by: Dictated on workstation # [id number]
--- NOTE | 2018-03-04 07:15 | Diagnostic Imaging Report ---
PROCEDURE: CT abdomen and pelvis with contrast. TECHNIQUE: Multiple contiguous axial images were obtained through the abdomen and pelvis after administration of intravenous contrast. INDICATION: Fall, swelling and abrasions. FINDINGS: The visualized lung bases appear clear without infiltrate or effusion. The liver demonstrates no focal abnormality. The gallbladder is nondistended. There is no biliary dilatation. Pancreas unremarkable. Spleen is normal in size. There is no adrenal mass. The kidneys enhance normally and are nonobstructed. Small and large bowel normal in caliber without obstruction. There is no abnormal bowel thickening. There is no evidence of appendicitis. There is moderate stool within the colon. Intrauterine device is in place. There is a small left ovarian cyst. There is no adnexal mass. There is no free air, free fluid or abscess. No pathologically enlarged lymph nodes evident. Aorta normal in caliber. An IVC filter is in place. There is no acute or suspicious osseous abnormality demonstrated. IMPRESSION: 1. No CT evidence of an acute inflammatory or obstructive process. 2. I agree with the preliminary [employer] report. Dictated by: Dictated on workstation # [id number]
--- NOTE | 2018-03-04 07:20 | Diagnostic Imaging Report ---
PROCEDURE: CT head, face, and cervical spine without contrast. TECHNIQUE: Multiple contiguous axial images were obtained through the head, neck, and facial bones without the use of intravenous contrast. Sagittal and coronal reformations through the cervical spine and facial bones were also performed. INDICATION: Fall. Facial injury. COMPARISON: CTA head and neck 11/19/2017. FINDINGS: CT head and maxillofacial: Moderately depressed left orbital floor fracture with gas within the floor of the left orbit. This involves the infraorbital canal. No CT evidence of entrapment. There is also a comminuted fracture of the left lamina papyracea. These fractures extend into the inferior and anterior veloz of the left maxillary sinus. Blood products within the left maxillary and ethmoid sinuses. The calvarium and skull base are intact. No intracranial hemorrhage, mass effect, hydrocephalus or extra-axial fluid collections. The mastoids and middle ears are clear. CT cervical spine: Normal alignment. Vertebral body heights preserved. No fractures. No evidence of spinal canal or neuroforaminal narrowing. The visualized paravertebral soft tissues are unremarkable. IMPRESSION: 1. Depressed left orbital floor and lamina papyracea fractures. These fractures extend into the medial and anterior evloz of the left maxillary sinus. 2. No acute intracranial CT findings. 3. Cervical spine is intact. Dictated by: Dictated on workstation # [id number]
--- NOTE | 2018-03-04 07:26 | Diagnostic Imaging Report ---
AP pelvis. Indication: Fall. Findings: There is no evidence of hip dislocation. There is mild osteoarthritic joint space narrowing of both hips. The femoral heads demonstrate normal morphology. There is no diastases of the pubic symphysis or SI joints. The pelvic ring appears intact. An IVC filter is noted. An intrauterine device is also present. Impression: 1. Mild bilateral hip osteoarthritic joint space narrowing. No acute fracture, dislocation or pelvic diastases demonstrated. Dictated by: Dictated on workstation # [id number]
[2018-03-04 07:27] LABS: BASOPHILS % (AUTO) 0 % (0-10); EOSINOPHILS # (AUTO) 0.2 10^3/uL (0.0-0.3); EOSINOPHILS % (AUTO) 3 % (0-10); HEMATOCRIT 32 % (35-52); HEMOGLOBIN 10.1 G/DL (11.5-16.0); LYMPHOCYTES # (AUTO) 3.1 X 10^3 (1.0-4.0); LYMPHOCYTES % (AUTO) 36 % (12-44); MEAN CORPUSCULAR HEMOGLOBIN 26 PG (25-34); MEAN CORPUSCULAR HGB CONC 31 G/DL (32-36); MEAN CORPUSCULAR VOLUME 83 FL (80-99); MEAN PLATELET VOLUME 10.2 FL (7.4-10.4); MONOCYTES # (AUTO) 0.6 X 10^3 (0.0-1.0); MONOCYTES % (AUTO) 7 % (0-12); NEUTROPHILS # (AUTO) 4.6 X 10^3 (1.8-7.8); NEUTROPHILS % (AUTO) 54 % (42-75); PLATELET COUNT 312 10^3/uL (130-400); RED BLOOD COUNT 3.86 10^6/uL (4.35-5.85); RED CELL DISTRIBUTION WIDTH 18.3 % (10.0-14.5); WHITE BLOOD COUNT 8.6 10^3/uL (4.3-11.0)
[2018-03-04 07:48] LABS: BUN/CREATININE RATIO 10; CALCIUM 7.9 MG/DL (8.5-10.1); CARBON DIOXIDE 16 MMOL/L (21-32); CHLORIDE 116 MMOL/L (98-107); CREATININE SERUM 0.63 MG/DL (0.60-1.30); GFR ESTIMATED > 60; GLUCOSE 100 MG/DL (70-105); POTASSIUM 4.3 MMOL/L (3.6-5.0); SODIUM 141 MMOL/L (135-145)
[2018-03-04 08:00] VITALS: BP 104/63
--- NOTE | 2018-03-04 10:57 | Progress Note-Standard ---
Standard Progress Note Progress Notes/Assess & Plan Date Seen by a Provider: Mar 04, 2018 Time Seen by a Provider: 10:30 Progress/Assessment & Plan Patient was admitted from the ER for facial trauma. Has left orbit swelling. Difficulty opening her left eye. Has history of Right leg compartment syndrome in the past and IVC filter. Reports pain and difficulty seeing. The eye was examined with Dr. Llamas and myself. She has left orbit swelling and a bulging eye with redness. Reports pain and blurred vision. CT revels a depressed left orbital floor and lamina papyracea fractures with out entrapment. Plan- Discussed with Dr. Davey. Patient will need to make an appointment with our office upon discharge for or Tuesday of next week. At that time we will further evaluate the orbit. Dr. Llamas is writing for antibiotics at discharge. He also consulted optometry. Final Diagnosis Left orbit fracture JODI THOMSON APRN Mar 04, 2018 10:57
[2018-03-04 12:00] VITALS: BP 128/80
--- NOTE | 2018-03-04 13:05 | History & Physical-Surgical ---
History of Present Illness History of Present Illness Reason for visit/HPI Patient is a 32-year-old female who is questionable to the events that happened. Patient is brought by EMS and patient was found to be intoxicated and was unconscious but breathing on the floor. Patient is not willing to provide any details of events to myself. Patient had chest x-ray that demonstrated no acute process her pelvis x-ray and history of mild bilateral hip osteoarthritis and some joint space narrowing but no fractures or dislocations or pelvic diastases. Patient had CT head and C-spine which demonstrated depressed left orbital floor and lamina papyracea fractures extending into medial and anterior veloz of the left maxillary sinus no acute intracranial process and cervical spine intact. She had left knee x-rays performed demonstrating no acute fracture mild joint space loss. The abdomen and pelvis CT demonstrating no acute process. Patient with previous known right foot drop. Patient having complaints of change in vision of the left eye. She sees a blob over it difficult to open the eye due to the swelling and painful when trying to examine. Patient alcohol and methamphetamine positive. Her GCS is 15 at this time. Date of Admission Mar 04, 2018 at 01:00 Date Seen by a Provider: Mar 04, 2018 Time Seen by a Provider: 10:30 I consulted on this patient on 03/04/18 13:00 Attending Physician Shravan Walsh DO Admitting Physician Eleonora Trent MD Consult Allergies and Home Medications Allergies Coded Allergies: latex (Verified Allergy, Severe, BLISTERS, 08/24/17) penicillin (Verified Allergy, Severe, ITCHING, 08/24/17) Sulfa (Sulfonamide Antibiotics) (Verified Allergy, Unknown, RASH, 08/24/17) Home Medications Cyclobenzaprine HCl 10 Mg Tablet, 10 MG PO Q8H Prescribed by: JUAN GONZALEZ on 01/27/18237 Hyoscyamine Sulfate 0.125 Mg Tab.subl, 0.125 MG SL Q6H Prescribed by: PERICO CLAYTON on 02/19/181327 Naproxen 500 Mg Tablet, 500 MG PO BID Prescribed by: JUAN GONZALEZ on 01/27/18237 Ondansetron HCl 4 Mg Tab, 4 MG PO Q8H Prescribed by: PERICO CLAYTON on 02/19/181327 Tramadol HCl 50 Mg Tablet, 50 MG PO Q4H Prescribed by: JUAN GONZALEZ on 01/27/18237 Patient Home Medication List Home Medication List Reviewed: Yes Past Ymboafn-Hlqhhi-Dblwcv Hx Patient Social History Alcohol Use: Occasionally Uses Number of Drinks Today: II Recreational Drug Use: No Smoking Status: Current Everyday Smoker Type Used: Cigarettes 2nd Hand Smoke Exposure: Yes Recent Foreign Travel: No Contact w/Someone Who Travel: No Recent Infectious Disease Expo: No Recent Hopitalizations: No Physical Abuse Screen: Yes Immunizations Up To Date Tetanus Booster (TDap): Less than 5yrs PED Vaccines UTD: Yes Date of Pneumonia Vaccine: Feb 26, 2015 Date of Influenza Vaccine: Feb 17, 2018 Seasonal Allergies Seasonal Allergies: Yes Surgeries History of Surgeries: Yes (ivc filter placed R femoral) Surgeries: Cardiac, Orthopedic, 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, Vascular Surgery Respiratory History of Respiratory Disorde: Yes (CHILDHOOD) Respiratory Disorders: Asthma Cardiovascular History of Cardiac Disorders: No Cardiac Disorders: Congenital Heart Disease, Deep Vein Thrombosis, Palpitations Neurological History of Neurological Disord: Yes Neurological Disorders: Headaches /Migraines, Neuropathy, Seizure Disorder, Stroke 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 System Hx 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 Disorders: No Sexually Transmitted Disease: No HIV/AIDS: No Female 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 Disorders: Denies SCENIC ARTIST History: IUD Genitourinary History of Genitourinary Disor: Yes Genitourinary Disorders: Kidney Stones Gastrointestinal History of Gastrointestinal Di: Yes Gastrointestinal Disorders: Colitis, Irritable Bowel Musculoskeletal History of Musculoskeletal Dis: Yes (compartment syndrome ) Musculoskeletal Disorders: Degenerate Disk Disease, Scoliosis, Chronic Back Pain, Fractures Endocrine History of Endocrine Disorders: Yes (DIET CONTROLLED DIABETIC) Endocrine Disorders: Diabetes, Non-Insulin dep HEENT History of HEENT Disorders: Yes ("LEGALLY BLIND" ) Loss of Vision: Bilateral Hearing Impairment: Denies Cancer History of Cancer: No Psychosocial History of Psychiatric Problem: Yes (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) Behavioral Health Disorders: ADD/ADHD, Anxiety, PTSD, Suicide Attempts, Bipolar , Depression Integumentary History of Skin or Integumenta: No Blood Transfusions History of Blood Disorders: No Adverse Reaction to a Blood Tr: No (N/A) Family Medical History Significant Family History: No Pertinent Family Hx Family Medial History: Antiphospholipid syndrome 19 MOTHER Diabetes mellitus 19 FATHER G8 BROTHER FH: aneurysm 19 FATHER FH: lupus 19 MOTHER FHx: congestive heart failure 19 FATHER FHx: renal failure 19 MOTHER Heart murmur 19 MOTHER Lupus anticoagulant disorder 19 MOTHER Patent foramen ovale 19 FATHER Barry syndrome G8 SISTER Review of Systems Constitutional: no symptoms reported EENTM: see HPI Respiratory: no symptoms reported Cardiovascular: no symptoms reported Gastrointestinal: no symptoms reported Genitourinary: no symptoms reported : No Musculoskeletal: no symptoms reported Skin: no symptoms reported Psychiatric/Neurological: Other (Known right foot drop) Physical Exam Vital Signs Vital Signs - First Documented 03/03/18 22:16 Temp 98.2 Pulse 101 Resp 19 B/P (MAP) 111/83 (92) Pulse Ox 100 O2 Delivery Room Air Capillary Refill : Less Than 3 Seconds Height, Weight, BMI Height: 5'1.00" Weight: 237lbs. 3.0oz. [id number]; 44.8 BMI Method:Estimated General Appearance: No Apparent Distress HEENT: Other (Left eye pupil sluggish, slightly bulging left eye with significant erythema, significant periorbital swelling left side, swollen upper lip, tender left facial bones) Neck: Normal Inspection, Non Tender, Supple Respiratory: Chest Non Tender, Lungs Clear, Normal Breath Sounds, No Accessory Muscle Use, No Respiratory Distress Cardiovascular: Regular Rate, Rhythm Gastrointestinal: Normal Bowel Sounds, Non Tender, Soft Rectal: Deferred Back: No CVA Tenderness, No Vertebral Tenderness Extremity: Normal Inspection (Previous scars noted right lower extremity), Non Tender, No Calf Tenderness Neurologic/Psychiatric: Alert, Oriented x3, No Motor/Sensory Deficits (Right foot drop) Skin: Normal Color, Warm/Dry Lymphatic: No Adenopathy Data Review Labs Laboratory Tests 03/03/18 22:35: White Blood Count 10.0, Red Blood Count 4.49, Hemoglobin 11.9, Hematocrit 37, Mean Corpuscular Volume 83, Mean Corpuscular Hemoglobin 27, Mean Corpuscular Hemoglobin Concent 32, Red Cell Distribution Width 18.2H, Platelet Count 400, Mean Platelet Volume 9.5, Sodium Level 143, Potassium Level 3.8, Chloride Level 110H, Carbon Dioxide Level 19L, Anion Gap 14, Blood Urea Nitrogen 8, Creatinine 0.90, Estimat Glomerular Filtration Rate > 60, BUN/Creatinine Ratio 9, Glucose Level 99, Calcium Level 9.2, Total Bilirubin 0.1, Direct Bilirubin 0.1, Indirect Bilirubin 0.0, Aspartate Amino Transf (AST/SGOT) 18, Alanine Aminotransferase (ALT/SGPT) 17, Alkaline Phosphatase 45, Total Protein 7.7, Albumin 4.4, Serum Test, Qualitative NEGATIVE, Serum Alcohol 220H 03/03/18 22:48: Urine Color YELLOW, Urine Clarity SLIGHTLY CLOUDY, Urine pH 5, Urine Specific [place] 1.020, Urine Protein 2+H, Urine Glucose (UA) NEGATIVE, Urine Ketones NEGATIVE, Urine Nitrite NEGATIVE, Urine Bilirubin NEGATIVE, Urine Urobilinogen NORMAL, Urine Leukocyte Esterase NEGATIVE, Urine RBC (Auto) NEGATIVE, Urine RBC NONE, Urine WBC NONE, Urine Squamous Epithelial Cells 0-2, Urine Crystals NONE, Urine Bacteria TRACE, Urine Casts NONE, Urine Mucus SMALLH, Urine Culture Indicated NO, Urine Opiates Screen NEGATIVE, Urine Oxycodone Screen NEGATIVE, Urine Methadone Screen NEGATIVE, Urine Propoxyphene Screen NEGATIVE, Urine Barbiturates Screen NEGATIVE, Ur Tricyclic Antidepressants Screen NEGATIVE, Urine Phencyclidine Screen NEGATIVE, Urine Amphetamines Screen POSITIVEH, Urine Methamphetamines Screen NEGATIVE, Urine Benzodiazepines Screen NEGATIVE, Urine Cocaine Screen NEGATIVE, Urine Cannabinoids Screen NEGATIVE 03/04/18 07:10: White Blood Count 8.6, Red Blood Count 3.86L, Hemoglobin 10.1L, Hematocrit 32L, Mean Corpuscular Volume 83, Mean Corpuscular Hemoglobin 26, Mean Corpuscular Hemoglobin Concent 31L, Red Cell Distribution Width 18.3H, Platelet Count 312, Mean Platelet Volume 10.2, Sodium Level 141, Potassium Level 4.3, Chloride Level 116H, Carbon Dioxide Level 16L, Anion Gap 9, Blood Urea Nitrogen 6L, Creatinine 0.63, Estimat Glomerular Filtration Rate > 60, BUN/Creatinine Ratio 10, Glucose Level 100, Calcium Level 7.9L, Neutrophils (%) (Auto) 54, Lymphocytes (%) (Auto) 36, Monocytes (%) (Auto) 7, Eosinophils (%) (Auto) 3, Basophils (%) (Auto) 0, Neutrophils # (Auto) 4.6, Lymphocytes # (Auto) 3.1, Monocytes # (Auto) 0.6, Eosinophils # (Auto) 0.2, Basophils # (Auto) 0.0 Assessment/Plan Assessment/Plan Admission Diagonsis Trauma unknown cause, depressed left orbital floor and lamina papyracea fractures extending into medial and anterior veloz of the left maxillary sinus, left visual changes Alcohol and methamphetamine positive. Patient admitted to 4th floor. ENT consult The visual changes and exam are concerning to me. I asked Dr. Andino ( optometry) to evaluate and she has concern for entrapment or retinal detachment. She is recommending transfer for ophthalmology evaluation. I contacted Dr. Roldan at who has accepted for transfer. He requests transfer by helicopter. Admission Status: Observation Assessment/Plan Trauma unknown cause, depressed left orbital floor and lamina papyracea fractures extending into medial and anterior veloz of the left maxillary sinus, left visual changes Alcohol and methamphetamine positive. Patient admitted to 4th floor. ENT consult The visual changes and exam are concerning to me. I asked Dr. Andino ( optometry) to evaluate and she has concern for entrapment or retinal detachment. She is recommending transfer for ophthalmology evaluation. I contacted Dr. Roldan at who has accepted for transfer. He requests transfer by helicopter. Clinical Quality Measures DVT/VTE Risk/Contraindication: Risk Factor Score Per Nursin RFS Level Per Nursing on Admit: 2=Moderate SHRAVAN WALSH DO Mar 04, 2018 13:05
[2018-03-05] MEDS ORDERED: AZITHROMYCIN 250 MG/NS 250 ML IVPB IV SCH ×2 (09:00)
== END 2018-03-04 15:12 | disposition short-term general hospital (02) ==
LOC: EDUNIT# 22:18 → ER 22:20 → 4TH 22:21 → ER 22:50 → LDRP 22:50 → UNDOADMOB 03-04 01:00 → 4TH 03-04 01:00 → UNDOADMOB 03-04 01:45 → UNDODISOB 03-04 15:12
PROVIDERS: ADMIT Surgery; ATTEND Surgery
DX: S02.32XA Fracture of orbital floor, left side, initial encounter for closed fracture (principal); S02.40DA Maxillary fracture, left side, initial encounter for closed fracture; S06.0X9A Concussion with loss of consciousness of unspecified duration, initial encounter; M25.562 Pain in left knee; F10.929 Alcohol use, unspecified with intoxication, unspecified; M21.371 Foot drop, right foot; F15.90 Other stimulant use, unspecified, uncomplicated; H54.7 Unspecified visual loss; E11.40 Type 2 diabetes mellitus with diabetic neuropathy, unspecified; F90.9 Attention-deficit hyperactivity disorder, unspecified type; F31.9 Bipolar disorder, unspecified; F41.9 Anxiety disorder, unspecified; F43.10 Post-traumatic stress disorder, unspecified; M41.9 Scoliosis, unspecified; G40.909 Epilepsy, unspecified, not intractable, without status epilepticus; Z86.73 Personal history of transient ischemic attack (TIA), and cerebral infarction without residual deficits; Z86.718 Personal history of other venous thrombosis and embolism; F17.210 Nicotine dependence, cigarettes, uncomplicated; Z79.899 Other long term (current) drug therapy; X58.XXXA Exposure to other specified factors, initial encounter
CPT/HCPCS: 36415; 51701; 51702; 70450; 70486; 71045; 72125; 72170; 73562; 74177; 80048; 80076; 80306; 80320; 81000; 84703; 85025; 85027; 93041; 94760; 96361; 96374; G0378

== ENCOUNTER 2018-03-13 14:39 | Outpatient (CLI) | payer MEDICAID ==
[~2018-03-13] VITALS: Ht 154.9 cm; Wt 105.2 kg
[2018-03-13] MEDS ORDERED: OXYC-471 PO (15:04)
[2018-03-13 15:25] VITALS: BP 122/76
[2018-03-13] MEDS ORDERED: QUET50TA55 PO (15:36)
[2018-03-13] MEDS ORDERED: GABA-488 PO (15:36)
== END 2018-03-13 15:10 | disposition home or self-care (01) ==
LOC: PREOP 14:39
PROVIDERS: ATTEND Otolaryngology Otolaryngology/Facial Plastic Surgery
DX: Z01.818 Encounter for other preprocedural examination (principal)
CPT/HCPCS: 87081

== ENCOUNTER 2018-03-17 06:25 | Day surgery (SDC) | payer MEDICAID ==
[~2018-03-17] VITALS: Ht 154.9 cm; Wt 105.2 kg
[~2018-03-17 06:25] MED LIST changes: +QUET50TA55 PO
--- NOTE | 2018-03-17 06:46 | Progress Note-Pre Operative ---
Pre-Operative Progress Note H&P Reviewed The H&P was reviewed, patient examined and no changes noted. Date Seen by Provider: Mar 17, 2018 Time Seen by Provider: 06:30 Date H&P Reviewed: Mar 17, 2018 Time H&P Reviewed: 06:30 Pre-Operative Diagnosis: Left Orbital rim and floor fracture EDMUNDO WOMACK MD Mar 17, 2018 06:46
[2018-03-17 06:50] LABS: HCG,QUALITATIVE URINE NEGATIVE (NEGATIVE)
[2018-03-17] MEDS ORDERED: NEO/POLY/BAC (NEOSPORIN) OINT 15 GM TUBE ONE (06:57)
[2018-03-17] MEDS ORDERED: LIDOCAINE/EPI 1%-1:200,000 (XYLOCAINE) 10 ML VIAL ONE (06:57)
[2018-03-17] MEDS ORDERED: BSS 15 ML ONE (06:57)
[2018-03-17] MEDS ORDERED: NEOMY/POLYM/HC (CORTISPORIN) 10 ML BTL ONE (06:57)
[2018-03-17 06:58] LABS: AMPHETAMINE SCREEN, URINE NEGATIVE (NEGATIVE); BARBITURATE SCREEN URINE NEGATIVE (NEGATIVE); BENZODIAZEPINES SCREEN URINE NEGATIVE (NEGATIVE); CANNABINOID SCREEN, URINE NEGATIVE (NEGATIVE); COCAINE SCREEN URINE NEGATIVE (NEGATIVE); METHADONE STAT NEGATIVE (NEGATIVE); METHAMPHETAMINE SCREEN URINE S NEGATIVE (NEGATIVE); OPIATE SCREEN URINE POSITIVE (NEGATIVE); OXYCODONE STAT NEGATIVE (NEGATIVE); PROPOXYPHENE STAT NEGATIVE (NEGATIVE); TRICYCLIC ANTIDEPRESSANTS SCRE NEGATIVE (NEGATIVE)
[2018-03-17] MEDS ORDERED: TRIAMCINOLONE ACET (KENALOG-40) 40 MG/ML 1 ML VIAL IM ONE (07:00)
[2018-03-17] MEDS ORDERED: LACTATED RINGERS 1,000 ML IV PRN (07:02)
[2018-03-17] MEDS ORDERED: ONDANSETRON 4 MG/2 ML (SDV) Z0FRAN ONE (07:04)
[2018-03-17] MEDS ORDERED: SEVOFLURANE (ULTANE) 15 ML INHAL SOLN ONE ×6 (07:04→09:12)
[2018-03-17] MEDS ORDERED: MIDAZOLAM 2 MG/2 ML (VERSED) VIAL ONE (07:04)
[2018-03-17] MEDS ORDERED: fentaNYL INJECTION 100 MCG/2 ML AMP ONE ×3 (07:04→09:11)
[2018-03-17] MEDS ORDERED: proPOfol 200 MG/20 ML (DIPRIVAN) VIAL IV ONE (07:04)
[2018-03-17] MEDS ORDERED: LIDOCAINE PF 2% 5 ML (XYLOCAINE) VIAL ONE (07:04)
[2018-03-17] MEDS ORDERED: DEXAMETHASONE 10 MG/ML (DECADRON) 1 ML VIAL ONE (07:04)
[2018-03-17] MEDS ORDERED: ROCURONIUM 10 MG/ML 5 ML SYRINGE IV ONE (07:26)
[2018-03-17 07:33] VITALS: BP 95/71
[2018-03-17] MEDS ORDERED: GLYCOPYRROLATE 0.2 MG/ML (ROBINUL) 2 ML VIAL ONE (09:12)
[2018-03-17] MEDS ORDERED: NEOSTIGMINE 1 MG/ML 5 ML SYRINGE ONE (09:12)
[2018-03-17] MEDS ORDERED: NEO/POLY/BACI (NEOSPORIN) OPHTH OINT 3.5 GM ONE (09:27)
--- NOTE | 2018-03-17 09:32 | Progress Note-Post Operative ---
Post-Operative Progess Note Surgeon (s)/Gymnastics Coach Or Instructor (s) Surgeon EDMUNDO WOMACK MD Gymnastics Coach Or Instructor n/a Pre-Operative Diagnosis Left Orbital rim and floor fracture Post-Operative Diagnosis same Post-Op Procedure Note Date of Procedure: Mar 17, 2018 Name of Procedure Performed: Repaor of Orbital fracture and floor with multiple surgical approaches Description & Findings Description and Findings: n/a Anesthesia Type get Estimated Blood Loss minimal Packing none. Specimen(s) collected/removed none EDMUNDO WOMACK MD Mar 17, 2018 09:32
[2018-03-17] MEDS ORDERED: fentaNYL INJECTION 100 MCG/2 ML AMP IVP ONE (09:45)
[2018-03-17] MEDS ORDERED: HYDROcodone/APAP 5 MG/325 MG (LORTAB) TAB PO PRN (09:45)
[2018-03-17] MEDS ORDERED: MEPERIDINE (DEMEROL) INJ 50 MG/ML IVP ONE (09:45)
[2018-03-17] MEDS ORDERED: morphine INJ 10 MG/ML 1ML (SYR OR VIAL) IVP ONE (09:45)
[2018-03-17] MEDS ORDERED: ONDANSETRON 4 MG/2 ML (SDV) Z0FRAN IVP PRN (09:45)
[2018-03-17] MEDS ORDERED: ACETAMINOPHEN 325 MG TABLET PO PRN (09:45)
[2018-03-17] MEDS: morphine INJ 10 MG/ML 1ML (SYR OR VIAL) ONE ×3 (10:06→13:18)
[2018-03-17 10:55] VITALS: BP 108/67
[2018-03-17 11:25] VITALS: BP 112/65
[2018-03-17] MEDS ORDERED: HYDR-3812 PO (11:26)
[2018-03-17 11:55] VITALS: BP 106/66
[2018-03-17 12:15] VITALS: BP 106/66
--- NOTE | 2018-03-17 12:57 | Anesthesia-General Post-Op ---
General Patient Condition Mental Status/LOC: Same as Preop Cardiovascular: Satisfactory Nausea/Vomiting: Absent Respiratory: Satisfactory Pain: Controlled Complications: Absent Post Op Complications Complications None Follow Up Care/Instructions Patient Instructions None needed. Anesthesia/Patient Condition Patient Condition Patient is doing well, no complaints, stable vital signs, no apparent adverse anesthesia problems. No complications reported per nursing. MAEGAN BURNETT CRNA Mar 17, 2018 12:57
== END 2018-03-17 12:15 | disposition home or self-care (01) ==
LOC: SDC 06:25
PROVIDERS: ATTEND Otolaryngology Otolaryngology/Facial Plastic Surgery
DX: S02.32XA Fracture of orbital floor, left side, initial encounter for closed fracture (principal); W18.00XA Striking against unspecified object with subsequent fall, initial encounter; F31.9 Bipolar disorder, unspecified; F17.210 Nicotine dependence, cigarettes, uncomplicated; Z86.718 Personal history of other venous thrombosis and embolism; R56.9 Unspecified convulsions; I11.9 Hypertensive heart disease without heart failure; E66.01 Morbid (severe) obesity due to excess calories; Z68.41 Body mass index [BMI] 40.0-44.9, adult; Z86.73 Personal history of transient ischemic attack (TIA), and cerebral infarction without residual deficits; Z79.899 Other long term (current) drug therapy
CPT/HCPCS: 80306; 82962; 84703

== ENCOUNTER 2018-04-06 22:12 | Inpatient (IN) | payer MEDICAID ==
[~2018-04-06] VITALS: Ht 154.9 cm; Wt 102.3 kg
[~2018-04-06 22:12] MED LIST changes: +HYDR-3812 PO
[2018-04-06] MEDS ORDERED: ONDANSETRON 4 MG/2 ML (SDV) Z0FRAN ONE (22:22)
[2018-04-06] MEDS ORDERED: NS IV 1000 ML 1,000 ML ONE (22:22)
[2018-04-06] MEDS ORDERED: NS IV 1000 ML 1,000 ML IV SCH (22:28)
[2018-04-06] MEDS ORDERED: ONDANSETRON 4 MG/2 ML (SDV) Z0FRAN IVP ONE (22:30)
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
[2018-04-06 22:40] LABS: BASOPHILS % (AUTO) 0 % (0-10); EOSINOPHILS # (AUTO) 0.1 10^3/uL (0.0-0.3); EOSINOPHILS % (AUTO) 1 % (0-10); HEMATOCRIT 35 % (35-52); HEMOGLOBIN 11.4 G/DL (11.5-16.0); LYMPHOCYTES # (AUTO) 2.4 X 10^3 (1.0-4.0); LYMPHOCYTES % (AUTO) 26 % (12-44); MEAN CORPUSCULAR HEMOGLOBIN 27 PG (25-34); MEAN CORPUSCULAR HGB CONC 33 G/DL (32-36); MEAN CORPUSCULAR VOLUME 84 FL (80-99); MEAN PLATELET VOLUME 9.9 FL (7.4-10.4); MONOCYTES # (AUTO) 0.5 X 10^3 (0.0-1.0); MONOCYTES % (AUTO) 5 % (0-12); NEUTROPHILS # (AUTO) 6.3 X 10^3 (1.8-7.8); NEUTROPHILS % (AUTO) 67 % (42-75); PLATELET COUNT 364 10^3/uL (130-400); RED BLOOD COUNT 4.18 10^6/uL (4.35-5.85); RED CELL DISTRIBUTION WIDTH 18.1 % (10.0-14.5); WHITE BLOOD COUNT 9.3 10^3/uL (4.3-11.0)
[2018-04-06 23:08] LABS: ALANINE AMINOTRANSFERASE 10 U/L (0-55); ALBUMIN 4.1 GM/DL (3.2-4.5); ALKALINE PHOSPHATASE 41 U/L (40-136); BILIRUBIN,TOTAL 0.1 MG/DL (0.1-1.0); BUN/CREATININE RATIO 9; CALCIUM 9.2 MG/DL (8.5-10.1); CARBON DIOXIDE 13 MMOL/L (21-32); CHLORIDE 111 MMOL/L (98-107); CREATININE SERUM 0.75 MG/DL (0.60-1.30); GFR ESTIMATED > 60; GLUCOSE 109 MG/DL (70-105); LIPASE 38 U/L (8-78); MAGNESIUM 2.4 MG/DL (1.8-2.4); POTASSIUM 4.3 MMOL/L (3.6-5.0); SALICYLATE < 5.0 MG/DL (5.0-20.0); SODIUM 137 MMOL/L (135-145); TOTAL PROTEIN 6.8 GM/DL (6.4-8.2)
[2018-04-06 23:12] LABS: ACETAMINOPHEN 88 UG/ML (10-30)
--- NOTE | 2018-04-06 23:21 | NUR ---
pt refuses to urinate, wants to leave and speak with housecalls nurse.
--- NOTE | 2018-04-06 23:51 | NUR ---
pt states she talked to save line and can sign out ama. pt pulled out iv access et. walked out. [place] police contacted.
[2018-04-07] VITALS (13 sets, daily range): BP systolic 91–114; BP diastolic 55–86
--- NOTE | 2018-04-07 | NUR ---
[place] police here talking with patient infront of [facility].
--- NOTE | 2018-04-07 00:49 | NUR ---
Sloan with poison control called at this time. He was requesting update and labs on pt. He was provided these and he suggested repeat on acetaminophen level at 0130.
--- NOTE | 2018-04-07 01:20 | NUR ---
pt brought back in from lobby accompanied by ppd. pt agreeable to staying at this time.
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
[2018-04-07] MEDS ORDERED: 1/2 NS W/KCL 20 MEQ/L 1,000 ML IV ONE (01:33)
[2018-04-07] MEDS: 1/2 NS W/KCL 20 MEQ/L 1,000 ML IV SCH ×2 (01:51→06:39)
[2018-04-07] MEDS ORDERED: MAGNESIUM 1 GM/D5W 100 ML IVPB IV PRN (02:00)
[2018-04-07] MEDS ORDERED: LORazepam INJ 2 MG/ML (ATIVAN) VIAL IV PRN (02:00)
[2018-04-07] MEDS ORDERED: ONDANSETRON 4 MG/2 ML (SDV) Z0FRAN IV PRN (02:00)
[2018-04-07 06:10] LABS: BASOPHILS % (AUTO) 0 % (0-10); EOSINOPHILS # (AUTO) 0.1 10^3/uL (0.0-0.3); EOSINOPHILS % (AUTO) 1 % (0-10); HEMATOCRIT 34 % (35-52); HEMOGLOBIN 10.4 G/DL (11.5-16.0); LYMPHOCYTES % (AUTO) 39 % (12-44); MEAN CORPUSCULAR HEMOGLOBIN 26 PG (25-34); MEAN CORPUSCULAR HGB CONC 31 G/DL (32-36); MEAN CORPUSCULAR VOLUME 85 FL (80-99); MEAN PLATELET VOLUME 10.3 FL (7.4-10.4); MONOCYTES # (AUTO) 0.4 X 10^3 (0.0-1.0); MONOCYTES % (AUTO) 6 % (0-12); NEUTROPHILS # (AUTO) 4.1 X 10^3 (1.8-7.8); NEUTROPHILS % (AUTO) 53 % (42-75); PLATELET COUNT 353 10^3/uL (130-400); RED BLOOD COUNT 3.99 10^6/uL (4.35-5.85); RED CELL DISTRIBUTION WIDTH 17.8 % (10.0-14.5); WHITE BLOOD COUNT 7.6 10^3/uL (4.3-11.0)
[2018-04-07 06:44] LABS: MAGNESIUM 2.1 MG/DL (1.8-2.4); PHOSPHORUS 3.6 MG/DL (2.3-4.7)
[2018-04-07 06:45] LABS: ACETAMINOPHEN 22 UG/ML (10-30); ALANINE AMINOTRANSFERASE 9 U/L (0-55); ALBUMIN 3.8 GM/DL (3.2-4.5); ALKALINE PHOSPHATASE 36 U/L (40-136); BILIRUBIN,TOTAL 0.4 MG/DL (0.1-1.0); BUN/CREATININE RATIO 9; CALCIUM 8.8 MG/DL (8.5-10.1); CARBON DIOXIDE 19 MMOL/L (21-32); CHLORIDE 111 MMOL/L (98-107); CREATININE SERUM 0.67 MG/DL (0.60-1.30); GFR ESTIMATED > 60; GLUCOSE 96 MG/DL (70-105); SODIUM 139 MMOL/L (135-145); TOTAL PROTEIN 6.4 GM/DL (6.4-8.2)
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
[2018-04-07] MEDS ORDERED: SODIUM BICARBONATE IV SCH ×2 (07:15)
[2018-04-07] MEDS ORDERED: DEXTROSE IV SCH ×2 (07:15)
[2018-04-07] MEDS ORDERED: ACET-2267 PO (09:01)
--- NOTE | 2018-04-07 09:02 | NUR ---
SPOKE WITH THE PATIENT ABOUT HER MEDICATIONS. WE WENT OVER THE EXT MED HX AND SHE VERIFIED HOW SHE TAKES THEM. SHE STATES SHE DOES NOT HAVE ANY OF THE PRESCRIPTION PAIN MEDICATIONS SHE HAS FILLED, SHE IS OUT OF THEM. SHE DOES STATE SHE TAKES TYLENOL OTC PRN. SHE HAS NOT FILLED THE METOPROLOL SINCE 02-08-18 FOR 30 DAYS, SHE STATES SHE IS NO LONGER TAKING IT, I REMOVED IT FROM THE MED REC AT THIS TIME.
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
[2018-04-07] MEDS ORDERED: NICOTINE 21 MG (NICODERM) PATCH ONE (10:18)
[2018-04-07] MEDS ORDERED: NICOTINE 21 MG (NICODERM) PATCH TD SCH (10:20)
--- NOTE | 2018-04-07 11:42 | NUR ---
CM/SS spoke with Ovi Hernandez with . He met with the patient and has a safety plan and crisis management plan in place for the patient. She and her children have services with [facility] and she is to meet with them today and the crisis line will call her today and also tomorrow to check in on her.
--- NOTE | 2018-04-07 12:29 | Discharge Instructions ---
Discharge Inst-[facility] Discharge Medications Continued Medications: Gabapentin (Gabapentin) 300 Mg Capsule 300 MG PO 0800,1200, CAP Gabapentin (Gabapentin) 300 Mg Capsule 600 MG PO HS, CAP TAKES 2 (300MG) CAPSULES Lurasidone HCl (Latuda) 60 Mg Tablet 60 MG PO DAILY, TAB Quetiapine Fumarate (Quetiapine Fumarate) 50 Mg Tablet 50-100 MG PO HS PRN for SLEEP, TAB Discontinued Medications: Acetaminophen (Tylenol Extra Strength) 500 Mg Tablet 500-1000 MG PO Q4H PRN for PAIN-MILD, TAB Patient Instructions Patient Instructions [facility] After Hour Call Goal/Follow Up Appt: Follow-up with Karina at [facility] on 04/10/18 at 11:30am Follow-up with Dr. Chen on 04/17/18 at 10am. Director of Behavioral Health will arrange for someone from [facility] to follow-up with patient by phone over the weekend. Activity & Diet Discharge Diet: No Restrictions TU HARRIS DO Apr 07, 2018 12:28
--- NOTE | 2018-04-07 12:36 | Short Stay Summary ---
History of Present Illness History of Present Illness Reason for visit/HPI This is a 32 yo female patient of [facility] with history of severe anxiety/ depression as well as hx of alcohol abuse. Pt reports she has had significant increase in stressors with recent increase in anxiety and hopelessness. Patient has been in contact with [facility] with some adjustment to her medication by phone, last seen 03/28/[address] Prasad. Prior to presenting to the ER, pt ingested APAP, Seroquel and then attempted to hang herself with a belt when the PD arrived and stopped her. Per the ER record: EMS estimated around 30/04/29 the patient took 50-60 extra strength Tylenol and 45 tablets of Seroquel, 50 mg each. She then had a belt around her neck and had the buckle over the top of the door standing on a space heater when police arrived area they're able to get her down before she actually hung herself. Patient never lost consciousness. Today patient is wanting to leave as her children's father is dropping them off at home and she does not want them to be alone. She states she wouldn't hurt herself around her children. Pt denies physical complaints at this time. Date of Admission Apr 07, 2018 at 00:10 Date of Discharge Apr 07, 2018 Time Seen by Provider: 09:50 Attending Physician Tu Hancock DO Admitting Physician Eleonora Trent MD Consult Allergies and Home Medications Allergies Coded Allergies: latex (Verified Allergy, Severe, BLISTERS, 08/24/17) penicillin (Verified Allergy, Severe, ITCHING, 08/24/17) Sulfa (Sulfonamide Antibiotics) (Verified Allergy, Unknown, RASH, 08/24/17) Home Medications Acetaminophen 500 Mg Tablet, 500-1,000 MG PO Q4H PRN for PAIN-MILD, (Reported) Gabapentin 300 Mg Capsule, 300 MG PO 0800,1200, (Reported) Gabapentin 300 Mg Capsule, 600 MG PO HS, (Reported) TAKES 2 (300MG) CAPSULES Lurasidone HCl 60 Mg Tablet, 60 MG PO DAILY, (Reported) Quetiapine Fumarate 50 Mg Tablet, 50-100 MG PO HS PRN for SLEEP, (Reported) Patient Home Medication List Home Medication List Reviewed: Yes Past Cyufnbg-Uwretd-Xyasgi Hx Patient Social History Alcohol Use: Past History Number of Drinks Today: 0 Alcohol Beverage of Choice: Other Recreational Drug Use: No Smoking Status: Current Everyday Smoker Type Used: Cigarettes 2nd Hand Smoke Exposure: Yes Recent Foreign Travel: No Contact w/other who traveled: No Recent Hopitalizations: Yes (february had orbital fx) Recent Infectious Disease Expo: No Immunizations Up To Date Tetanus Booster (TDap): Less than 5yrs Pediatric: Yes Date of Pneumonia Vaccine: Feb 26, 2015 Date of Influenza Vaccine: Feb 17, 2018 Seasonal Allergies Seasonal Allergies: Yes Surgeries Yes (ivc filter placed R femoral, R fasicotomy, loop recorder, r face surge) Cardiac, Orthopedic, 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, Vascular Surgery Respiratory Yes Currently Using CPAP: No Currently Using BIPAP: No Cardiovascular Yes (PFO, ATRIAL SHUNT, BLOD CLOTS IN LEGS-IVC FILTER) Congenital Heart Disease, Deep Vein Thrombosis, Palpitations Neurological Yes (HASNT HAD SEIZURE SINCE 2010 possible one 03/03/18, STROKE 2013) Headaches /Migraines, Neuropathy, Seizure Disorder, Stroke 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 System : No Hx 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 Disorders: No Sexually Transmitted Disease: No HIV/AIDS: No 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, 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 Genitourinary Yes Kidney Stones Gastrointestinal Yes Colitis, Irritable Bowel Musculoskeletal Yes (compartment syndrome ) Degenerate Disk Disease, Scoliosis, Chronic Back Pain, Fractures Endocrine History of Endocrine Disorders: Yes (DIET CONTROLLED DIABETIC) Endocrine Disorders: Diabetes, Non-Insulin dep HEENT History of HEENT Disorders: Yes ("LEGALLY BLIND" ) Loss of Vision: Bilateral Hearing Impairment: Denies Cancer No Psychosocial History of Psychiatric Problem: Yes (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, DID) Behavioral Health Disorders: ADD/ADHD, Anxiety, PTSD, Suicide Attempts, Bipolar , Depression Integumentary History of Skin or Integumenta: No Blood Transfusions History of Blood Disorders: No (hx anemia) Adverse Reaction to a Blood Tr: No (N/A) Family Medical History Significant Family History: No Pertinent Family Hx Family Hx: Antiphospholipid syndrome 19 MOTHER Diabetes mellitus 19 FATHER G8 BROTHER FH: aneurysm 19 FATHER FH: lupus 19 MOTHER FHx: congestive heart failure 19 FATHER FHx: renal failure 19 MOTHER Heart murmur 19 MOTHER Lupus anticoagulant disorder 19 MOTHER Patent foramen ovale 19 FATHER Barry syndrome G8 SISTER Review of Systems Constitutional: see HPI Physical Exam Vital Signs Vital Signs - First Documented 04/06/18 22:13 Temp 97.9 Pulse 117 Resp 23 B/P (MAP) 126/76 (93) Pulse Ox 100 O2 Delivery Room Air Capillary Refill : Less Than 3 Seconds Height, Weight, BMI Height: 5'1.00" Weight: 225lbs. 9.0oz. 102.799471xt; 42.6 BMI Method:Stated General Appearance: No Apparent Distress, WD/WN HEENT: PERRL/EOMI Respiratory: Lungs Clear, Normal Breath Sounds, No Accessory Muscle Use, No Respiratory Distress Cardiovascular: Regular Rate, Rhythm, No Edema Extremity: No Pedal Edema Neurologic/Psychiatric: Alert, Oriented x3, Other (tearful) Skin: Normal Color, Warm/Dry Clinical Quality Measures DVT/VTE Risk/Contraindication: Risk Factor Score Per Nursin RFS Level Per Nursing on Admit: 4+=Very High Short Stay Diagnosis Discharge Diagnosis-Short Stay Admission Diagnosis: 1. Suicide attempt by drug ingestion 2. Acetaminophen overdose 3. Seroquel Overdose 4. Attempted hanging Final Discharge Diagnosis: 1. Suicide attempt by drug ingestion 2. Acetaminophen overdose 3. Seroquel Overdose 4. Attempted hanging Conclusion Labs Laboratory Tests 04/06/18 22:32: White Blood Count 9.3, Red Blood Count 4.18L, Hemoglobin 11.4L, Hematocrit 35, Mean Corpuscular Volume 84, Mean Corpuscular Hemoglobin 27, Mean Corpuscular Hemoglobin Concent 33, Red Cell Distribution Width 18.1H, Platelet Count 364, Mean Platelet Volume 9.9, Neutrophils (%) (Auto) 67, Lymphocytes (%) (Auto) 26, Monocytes (%) (Auto) 5, Eosinophils (%) (Auto) 1, Basophils (%) (Auto) 0, Neutrophils # (Auto) 6.3, Lymphocytes # (Auto) 2.4, Monocytes # (Auto) 0.5, Eosinophils # (Auto) 0.1, Basophils # (Auto) 0.0, Sodium Level 137, Potassium Level 4.3, Chloride Level 111H, Carbon Dioxide Level 13L, Anion Gap 13, Blood Urea Nitrogen 7, Creatinine 0.75, Estimat Glomerular Filtration Rate > 60, BUN/ Creatinine Ratio 9, Glucose Level 109H, Calcium Level 9.2, Corrected Calcium 9.1 , Magnesium Level 2.4, Total Bilirubin 0.1, Aspartate Amino Transf (AST/SGOT) 16 , Alanine Aminotransferase (ALT/SGPT) 10, Alkaline Phosphatase 41, Total Protein 6.8, Albumin 4.1, Lipase 38, Salicylates Level < 5.0L, Acetaminophen Level 88*H, Serum Alcohol < 10 04/07/18 01:20: Acetaminophen Level 67#*H 04/07/18 05:03: White Blood Count 7.6, Red Blood Count 3.99L, Hemoglobin 10.4L, Hematocrit 34L, Mean Corpuscular Volume 85, Mean Corpuscular Hemoglobin 26, Mean Corpuscular Hemoglobin Concent 31L, Red Cell Distribution Width 17.8H, Platelet Count 353, Mean Platelet Volume 10.3, Neutrophils (%) (Auto) 53, Lymphocytes (%) (Auto) 39 , Monocytes (%) (Auto) 6, Eosinophils (%) (Auto) 1, Basophils (%) (Auto) 0, Neutrophils # (Auto) 4.1, Lymphocytes # (Auto) 3.0, Monocytes # (Auto) 0.4, Eosinophils # (Auto) 0.1, Basophils # (Auto) 0.0, Sodium Level 139, Potassium Level 4.0, Chloride Level 111H, Carbon Dioxide Level 19L, Anion Gap 9, Blood Urea Nitrogen 6L, Creatinine 0.67, Estimat Glomerular Filtration Rate > 60, BUN/ Creatinine Ratio 9, Glucose Level 96, Calcium Level 8.8, Corrected Calcium 9.0, Magnesium Level 2.1, Total Bilirubin 0.4, Aspartate Amino Transf (AST/SGOT) 11, Alanine Aminotransferase (ALT/SGPT) 9, Alkaline Phosphatase 36L, Total Protein 6.4, Albumin 3.8, Acetaminophen Level 22, Phosphorus Level 3.6 04/07/18 12:05: Conclusion/Plan 1. Suicide attempt by drug ingestion 2. Acetaminophen overdose 3. Seroquel Overdose 4. Attempted hanging Pt admitted to the ICU for monitoring. Serial EKGs showed no QTc prolongation. APAP level was below the treatment level and dropped on repeat. Patient medically stable. [facility] came to screen patient and ok'd for her to be discharged with safety plan. Follow-up arranged through [facility]. Discharge Inst-[facility] Discharge Medications Continued Medications: Gabapentin (Gabapentin) 300 Mg Capsule 300 MG PO 0800,1200, CAP Gabapentin (Gabapentin) 300 Mg Capsule 600 MG PO HS, CAP TAKES 2 (300MG) CAPSULES Lurasidone HCl (Latuda) 60 Mg Tablet 60 MG PO DAILY, TAB Quetiapine Fumarate (Quetiapine Fumarate) 50 Mg Tablet 50-100 MG PO HS PRN for SLEEP, TAB Discontinued Medications: Acetaminophen (Tylenol Extra Strength) 500 Mg Tablet 500-1000 MG PO Q4H PRN for PAIN-MILD, TAB Patient Instructions Patient Instructions [facility] After Hour Call Goal/Follow Up Appt: Follow-up with Karina at [facility] on 04/10/18 at 11:30am Follow-up with Dr. Chen on 04/17/18 at 10am. Director of Behavioral Health will arrange for someone from [facility] to follow-up with patient by phone over the weekend. Activity & Diet Discharge Diet: No Restrictions TU HANCOCK DO Apr 07, 2018 12:36
[2018-04-08] MEDS ORDERED: NICOTINE PATCH REMOVAL TP SCH (08:59)
== END 2018-04-07 11:40 | disposition home or self-care (01) | DRG 918 ==
LOC: EDUNIT# 22:12 → ER 22:13 → ICU 04-07 00:10
PROVIDERS: ADMIT Family Medicine; ATTEND Family Medicine
DX: T43.502A Poisoning by unspecified antipsychotics and neuroleptics, intentional self-harm, initial encounter (principal); T39.1X2A Poisoning by 4-Aminophenol derivatives, intentional self-harm, initial encounter; T14.91XA Suicide attempt, initial encounter; F41.9 Anxiety disorder, unspecified; F17.210 Nicotine dependence, cigarettes, uncomplicated; G40.909 Epilepsy, unspecified, not intractable, without status epilepticus; Z86.73 Personal history of transient ischemic attack (TIA), and cerebral infarction without residual deficits; G43.909 Migraine, unspecified, not intractable, without status migrainosus; E11.40 Type 2 diabetes mellitus with diabetic neuropathy, unspecified; Z86.718 Personal history of other venous thrombosis and embolism; K52.9 Noninfective gastroenteritis and colitis, unspecified; F90.9 Attention-deficit hyperactivity disorder, unspecified type; F31.9 Bipolar disorder, unspecified; F43.10 Post-traumatic stress disorder, unspecified; Z88.0 Allergy status to penicillin; Z88.1 Allergy status to other antibiotic agents
CPT/HCPCS: 36415; 72125; 80053; 80320; 80329; 83690; 83735; 84100; 85025; 87081; 93005; 93041; 96374

== ENCOUNTER → 2018-04-24 | Outpatient (CLI) | payer MEDICAID ==
[~2018-04-24] MED LIST changes: +ACET-2267 PO
--- NOTE | 2018-04-24 08:44 | Diagnostic Imaging Report ---
PROCEDURE: CT orbit without contrast. TECHNIQUE: Multiple contiguous axial images were obtained through the facial bones without the use of intravenous contrast. INDICATION: A left orbital fracture, status post surgery. COMPARISON: Comparison is made with prior orbital CT from 03/03/2018. FINDINGS: Fracture involving the medial wall of the left orbit is again noted. There has been significant improved appearance to the depressed left orbital floor fracture. Orbital floor now shows significant improved alignment. A small screw is noted near the lateral aspect of the left orbital floor. The lateral veloz of the orbits are intact. Globes are unremarkable. The paranasal sinuses appear to be clear. The mastoids are well aerated. Zygomatic arches are unremarkable. No entrapment of fat or orbital musculature is seen. IMPRESSION: Posttraumatic and postsurgical changes to the left orbital floor. Alignment is now near-anatomic. Dictated by: Dictated on workstation # [id number]
== END ==
LOC: RAD 08:04
PROVIDERS: ATTEND Otolaryngology Otolaryngology/Facial Plastic Surgery
DX: S02.32XD Fracture of orbital floor, left side, subsequent encounter for fracture with routine healing (principal); Z98.890 Other specified postprocedural states
CPT/HCPCS: 70480

== ENCOUNTER 2018-06-08 10:57 | Emergency (ER) | payer MEDICAID ==
[~2018-06-08] VITALS: Ht 154.9 cm; Wt 92.5 kg
[2018-06-08 10:57] VITALS: BP 133/86
--- NOTE | 2018-06-08 11:07 | ED Fall/Injury ---
General Stated Complaint: FALL/L EYE INJURY Source: patient Exam Limitations: no limitations History of Present Illness Date Seen by Provider: Jun 08, 2018 Time Seen by Provider: 11:03 Initial Comments To ER with reports of a fall and left eye injury. She arrives per EMS and is ambulatory into the emergency room from the ambulance. She states that she has dropped foot on the left side which causes her to trip frequently. She sustained a left orbital floor blowout fracture in February 2018. She had this repaired within the last month or two. She also c/o left flank pain. She denies any neck or back pain, denies any upper extremity pain, denies any lower extremity pain or injury. No chest or abdomen pain, Occurred: just prior to arrival Severity: moderate Injuries/Pain Location: face Context: tripped Loss of Consciousness: no loss of consciousness Associated Symptoms (Fall): No Abdominal Pain, No Headache, No Neck Pain Allergies and Home Medications Allergies Coded Allergies: latex (Verified Allergy, Severe, BLISTERS, 08/24/17) penicillin (Verified Allergy, Severe, ITCHING, 08/24/17) Sulfa (Sulfonamide Antibiotics) (Verified Allergy, Unknown, RASH, 08/24/17) Home Medications Gabapentin 300 Mg Capsule, 300 MG PO 0800,1200, (Reported) Gabapentin 300 Mg Capsule, 600 MG PO HS, (Reported) TAKES 2 (300MG) CAPSULES Lurasidone HCl 60 Mg Tablet, 60 MG PO DAILY, (Reported) Quetiapine Fumarate 50 Mg Tablet, 50-100 MG PO HS PRN for SLEEP, (Reported) Patient Home Medication List Home Medication List Reviewed: Yes Review of Systems Review of Systems Constitutional: see HPI Eyes: See HPI, Other (Swelling left eyelid) Ears, Nose, Mouth, Throat: no symptoms reported Respiratory: no symptoms reported Cardiovascular: no symptoms reported Genitourinary: no symptoms reported Musculoskeletal: see HPI, other (pain left flank) Skin: no symptoms reported Psychiatric/Neurological: No Symptoms Reported Past Zjzaxyv-Zmgswv-Ojvxgn Hx Patient Social History Alcohol Beverage of Choice: Other Type Used: Cigarettes 2nd Hand Smoke Exposure: Yes Recent Hopitalizations: Yes (february had orbital fx) Immunizations Up To Date Tetanus Booster (TDap): Less than 5yrs PED Vaccines UTD: Yes Date of Pneumonia Vaccine: Feb 26, 2015 Date of Influenza Vaccine: Feb 17, 2018 Seasonal Allergies Seasonal Allergies: Yes Past Medical History Surgeries: Yes (ivc filter placed R femoral, R fasicotomy, loop recorder, r face surge) Cardiac, Orthopedic, 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, Vascular Surgery Respiratory: Yes Asthma Currently Using CPAP: No Currently Using BIPAP: No Cardiac: Yes (PFO, ATRIAL SHUNT, BLOD CLOTS IN LEGS-IVC FILTER) Congenital Heart Disease, Deep Vein Thrombosis, Palpitations Neurological: Yes (HASNT HAD SEIZURE SINCE 2010 possible one 03/03/18, STROKE 2013) Headaches /Migraines, Neuropathy, Seizure Disorder, Stroke 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 Disorders: No Female 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 Disorders: 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, 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 Sexually Transmitted Disease: No HIV/AIDS: No Genitourinary: Yes Kidney Stones Gastrointestinal: Yes Colitis, Irritable Bowel Musculoskeletal: Yes (compartment syndrome ) Degenerate Disk Disease, Scoliosis, Chronic Back Pain, Fractures Endocrine: Yes (DIET CONTROLLED DIABETIC) Diabetes, Non-Insulin dep HEENT: Yes ("LEGALLY BLIND" ) Loss of Vision: Bilateral Hearing Impairment: Denies Cancer: No Psychosocial: Yes (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, DID) ADD/ADHD, Anxiety, PTSD, Suicide Attempts, Bipolar, Depression Integumentary: No Blood Disorders: No (hx anemia) Adverse Reaction/Blood Tranf: No (N/A) Family Medical History Antiphospholipid syndrome 19 MOTHER Diabetes mellitus 19 FATHER G8 BROTHER FH: aneurysm 19 FATHER FH: lupus 19 MOTHER FHx: congestive heart failure 19 FATHER FHx: renal failure 19 MOTHER Heart murmur 19 MOTHER Lupus anticoagulant disorder 19 MOTHER Patent foramen ovale 19 FATHER Barry syndrome G8 SISTER No Pertinent Family Hx Physical Exam Vital Signs Vital Signs - First Documented 06/08/18 10:57 Temp 99.3 Pulse 110 Resp 16 B/P (MAP) 133/86 (102) Pulse Ox 99 Capillary Refill : Height, Weight, BMI Height: 5'1.00" Weight: 225lbs. 9.0oz. 102.440028es; 42.6 BMI Method:Stated General Appearance: WD/WN, no apparent distress HEENT: PERRL/EOMI, normal ENT inspection, TMs normal, other (swelling to the lateral aspect left eyebrow. No subconjunctival hemorrhage or hyphema. Extraocular muscles are intact.) Neck: non-tender, full range of motion Respiratory: no respiratory distress, no accessory muscle use Gastrointestinal: normal bowel sounds, non tender, soft Neurologic/Psychiatric: alert, normal mood/affect, oriented x 3 Skin: normal color, warm/dry Progress/Results/Core Measures Results/Orders My Orders Orders - LARWENCE WHITESIDE APRN Ct Head/Maxillofacial Wo (06/08/18 11:00) Ct Abdomen/Pelvis Wo (06/08/18 11:00) Acetaminophen Tablet/Caplet (Tylenol T (06/08/18 12:15) Medications Given in ED Current Medications Medications Dose Ordered Sig/Diomedes Route Start Time Stop Time Status Last Admin Dose Admin Acetaminophen 650 mg ONCE ONCE PO 06/08/18 12:15 06/08/18 12:16 DC 06/08/18 12:06 650 MG Vital Signs/I&O 06/08/18 10:57 Temp 99.3 Pulse 110 Resp 16 B/P (MAP) 133/86 (102) Pulse Ox 99 Departure Communication (Admissions) patient left AGAINST MEDICAL ADVICE stating to nurses that we were not doing anything for her swelling. However, she had an ice pack over this area of swelling. Impression Primary Impression: Facial contusion Qualified Codes: S00.83XA - Contusion of other part of head, initial encounter Additional Impressions: Left flank pain Fall at home Qualified Codes: W19.XXXA - Unspecified fall, initial encounter; Y92.009 - Unspecified place in unspecified non-institutional (private) residence as the place of occurrence of the external cause Left against medical advice Disposition: 07 AGAINST MEDICAL ADVICE Condition: Against Medical Advice Departure-Patient Inst. Referrals: HIEU YAP MD (PCP) Primary Care Physician Images Head/Face 1 - Torso/Trunk 1 - Tenderness LAWRENCE WHITESIDE APRN Jun 08, 2018 11:07
--- NOTE | 2018-06-08 11:52 | Diagnostic Imaging Report ---
CLINICAL INDICATION: Patient fell this morning and hit left orbital area. Patient has pain and swelling. The patient has a history of left orbital fracture. EXAMS: 1: Axial Head CT without IV contrast. 2: Axial Maxillofacial CT scan without IV contrast with sagittal and coronal reformations. COMPARISON: CT scan of the head, face, and cervical spine dated 03/03/2018. CT scan of the orbits without contrast dated 04/24/2018. FINDINGS: HEAD CT: There is no evidence of acute cerebral infarct, intracranial hemorrhage, or gross mass effect. The brain parenchymal volume appears appropriate for patient's age. There is normal matthew-white matter distinction. There is no significant midline shift or herniation. There is no evidence of hydrocephalus. The basal cisterns are unremarkable. MAXILLOFACIAL SKULL CT: There is no skull or maxillofacial fracture. There are stable posttraumatic and postop changes to the left maxilla and inferior rim of the left orbit. Stable bony deformity of the medial wall of the left orbit/lamina papyracea. There is a moderate amount of extracranial soft tissue swelling/hematoma in the lateral and inferior left periorbital region. There is also mild swelling in the left malar region. There is no retrobulbar abnormality. All of the swelling is preseptal. Both globes are intact. Again seen is a screw involving the anterior aspect of the left maxilla in stable position. There is minimal mucosal thickening involving both maxillary sinuses. The ethmoid sinus and frontal sinus and sphenoid sinuses are unremarkable. Temporal bones show no significant abnormality. IMPRESSION: 1: There is no evidence of acute skull or maxillofacial fracture. There is no orbital wall fracture. There is interval development of a moderate-sized area of extracranial soft tissue swelling/hematoma in the left periorbital region. The swelling is preseptal. Both globes are intact. 2: Stable posttraumatic and postop changes to the left orbit and left maxilla. 3: There is no evidence of intracranial hemorrhage. Dictated by: Dictated on workstation # [id number]
--- NOTE | 2018-06-08 12:09 | Diagnostic Imaging Report ---
PROCEDURE: CT abdomen and pelvis without contrast. TECHNIQUE: Multiple contiguous axial images were obtained through the abdomen and pelvis without the use of intravenous contrast. INDICATION: Fall with left-sided pain. A noncontrasted abdominal pelvic CT performed and compared with study 03/03/2018. FINDINGS: An IUD device and IVC filter appeared unremarkable. There is a right adnexal cyst presumed ovarian 2.3 cm. Urinary tracts unobstructed and nonfocal. The unopacified liver, spleen, adrenals and pancreas unremarkable. There is no evidence for hemorrhage, free air or viscus perforation. There is no fracture deformity identified. The lung bases clear. IMPRESSION: No fracture or evidence for solid or hollow visceral injury. No acute posttraumatic sequelae. Post interventional changes in the right ovarian follicular cyst. No acute appearing abnormality. Dictated by: Dictated on workstation # [id number]
[2018-06-08] MEDS ORDERED: ACETAMINOPHEN 325 MG TABLET PO ONE (12:15)
--- NOTE | 2018-06-08 12:50 | NUR ---
NINOSKA TO THE ERCALLED INTO PTS ROOM. PT STATED THAT SHE HAS NOT BEEN CHECKED ON OR COMMUNICATED WITH SINCE ARRIVAL TO ER. PT HAS RECEIVED NUMEROUS WARM BLANKETS, ICE PACK, WATER, AND TYELNOL. ANOTHER RN CHECK ON PT PREVIOUSLY AND SHE STATED SHE NEVER RECEIVED ANY PAIN MEDICATION. THIS RN WENT TO SPEAK WITH PT AND PT ADMITTED SHE HAD BEEN CHECKED ON AND RECEIVED NUMEROUS THINGS. PT WISHING TO LEAVE AMA. RISK EXPLAINED TO PT SINCE CT RESULTS ARE NOT BACK YET. PT STATED THAT SHE DID NOT CARE AND SHE WANTED TO LEAVE. AMA PAPERWORK FILLED OUT AND SIGNED BY PATIENT.
== END 2018-06-08 12:56 | disposition left against medical advice (07) ==
LOC: EDUNIT# 10:57 → ER 10:58
DX: S00.83XA Contusion of other part of head, initial encounter (principal); R10.9 Unspecified abdominal pain; J45.909 Unspecified asthma, uncomplicated; G43.909 Migraine, unspecified, not intractable, without status migrainosus; G40.909 Epilepsy, unspecified, not intractable, without status epilepticus; K58.9 Irritable bowel syndrome, unspecified; E11.40 Type 2 diabetes mellitus with diabetic neuropathy, unspecified; F90.9 Attention-deficit hyperactivity disorder, unspecified type; F98.8 Other specified behavioral and emotional disorders with onset usually occurring in childhood and adolescence; F41.9 Anxiety disorder, unspecified; D64.9 Anemia, unspecified; F31.9 Bipolar disorder, unspecified; Z82.49 Family history of ischemic heart disease and other diseases of the circulatory system; Z91.5 Personal history of self-harm; Z95.828 Presence of other vascular implants and grafts; Z87.19 Personal history of other diseases of the digestive system; Z87.442 Personal history of urinary calculi; Z97.5 Presence of (intrauterine) contraceptive device; Z86.73 Personal history of transient ischemic attack (TIA), and cerebral infarction without residual deficits; Z86.718 Personal history of other venous thrombosis and embolism; Z91.040 Latex allergy status; Z88.2 Allergy status to sulfonamides; Z88.0 Allergy status to penicillin; Z77.22 Contact with and (suspected) exposure to environmental tobacco smoke (acute) (chronic); Z98.890 Other specified postprocedural states; Z98.51 Tubal ligation status; W19.XXXA Unspecified fall, initial encounter; Y92.009 Unspecified place in unspecified non-institutional (private) residence as the place of occurrence of the external cause
CPT/HCPCS: 70450; 70486; 74176; 99283

== ENCOUNTER 2018-06-22 13:53 | Outpatient (RCR) | payer MEDICAID ==
[2018-05-25 12:23] LABS: BASOPHILS % (AUTO) 0 % (0-10); EOSINOPHILS # (AUTO) 0.2 10^3/uL (0.0-0.3); EOSINOPHILS % (AUTO) 3 % (0-10); HEMATOCRIT 40 % (35-52); LYMPHOCYTES # (AUTO) 2.8 X 10^3 (1.0-4.0); LYMPHOCYTES % (AUTO) 39 % (12-44); MEAN CORPUSCULAR HEMOGLOBIN 27 PG (25-34); MEAN CORPUSCULAR HGB CONC 32 G/DL (32-36); MEAN CORPUSCULAR VOLUME 83 FL (80-99); MEAN PLATELET VOLUME 10.1 FL (7.4-10.4); MONOCYTES # (AUTO) 0.4 X 10^3 (0.0-1.0); MONOCYTES % (AUTO) 6 % (0-12); NEUTROPHILS # (AUTO) 3.7 X 10^3 (1.8-7.8); NEUTROPHILS % (AUTO) 52 % (42-75); PLATELET COUNT 368 10^3/uL (130-400); RED CELL DISTRIBUTION WIDTH 15.7 % (10.0-14.5); WHITE BLOOD COUNT 7.1 10^3/uL (4.3-11.0)
[2018-05-25 12:39] LABS: PROTHROMBIN TIME PATIENT 13.4 SEC (12.2-14.7)
[2018-05-25 12:45] LABS: ALANINE AMINOTRANSFERASE 19 U/L (0-55); ALBUMIN 4.3 GM/DL (3.2-4.5); ALKALINE PHOSPHATASE 41 U/L (40-136); BILIRUBIN,TOTAL 0.3 MG/DL (0.1-1.0); BUN/CREATININE RATIO 8; CALCIUM 10.1 MG/DL (8.5-10.1); CARBON DIOXIDE 25 MMOL/L (21-32); CHLORIDE 105 MMOL/L (98-107); CREATININE SERUM 0.75 MG/DL (0.60-1.30); GFR ESTIMATED > 60; GLUCOSE 91 MG/DL (70-105); SODIUM 137 MMOL/L (135-145); TOTAL PROTEIN 7.7 GM/DL (6.4-8.2)
[2018-05-25 13:21] LABS: BAND NEUTROPHILS 0 %; BASOPHILS % (MANUAL) 0 %; EOSINOPHILS % (MANUAL) 2 %; LYMPHOCYTES % (MANUAL) 36 %; MONOCYTES % (MANUAL) 5 %; NEUTROPHILS % (MANUAL) 51 %; REACTIVE LYMPHOCYTES 6 %
[2018-05-25 13:22] LABS: ANISOCYTOSIS SLIGHT; ELLIPT/OVALOCYTES SLIGHT; POIKILOCYTOSIS SLIGHT; SMUDGE CELLS SLIGHT; TARGET CELLS SLIGHT
[2018-05-25 13:23] LABS: ACANTHOCYTES SLIGHT
[~2018-06-22 13:53] MED LIST changes: -RIVA20TA; +RIVA20TA2
[2018-06-22 14:08] LABS: BASOPHILS % (AUTO) 0 % (0-10); EOSINOPHILS # (AUTO) 0.2 10^3/uL (0.0-0.3); EOSINOPHILS % (AUTO) 2 % (0-10); HEMATOCRIT 38 % (35-52); HEMOGLOBIN 12.3 G/DL (11.5-16.0); LYMPHOCYTES # (AUTO) 2.7 X 10^3 (1.0-4.0); LYMPHOCYTES % (AUTO) 35 % (12-44); MEAN CORPUSCULAR HEMOGLOBIN 27 PG (25-34); MEAN CORPUSCULAR HGB CONC 32 G/DL (32-36); MEAN CORPUSCULAR VOLUME 83 FL (80-99); MEAN PLATELET VOLUME 9.9 FL (7.4-10.4); MONOCYTES # (AUTO) 0.5 X 10^3 (0.0-1.0); MONOCYTES % (AUTO) 6 % (0-12); NEUTROPHILS # (AUTO) 4.3 X 10^3 (1.8-7.8); NEUTROPHILS % (AUTO) 57 % (42-75); PLATELET COUNT 385 10^3/uL (130-400); RED CELL DISTRIBUTION WIDTH 15.3 % (10.0-14.5); WHITE BLOOD COUNT 7.7 10^3/uL (4.3-11.0)
[2018-07-23] MEDS ORDERED: TRAM-42 PO (17:19)
[2018-08-03] MEDS ORDERED: MELO15TA39 (00:39)
[2018-08-24] MEDS ORDERED: ACHD5005 PO (05:21)
[2018-08-24] MEDS ORDERED: ONDA4TAB11 PO (05:21)
== END 2018-08-23 | disposition home or self-care (01) ==
LOC: ONC 13:53
PROVIDERS: ATTEND Internal Medicine Hematology & Oncology
DX: D47.3 Essential (hemorrhagic) thrombocythemia (principal); D64.9 Anemia, unspecified; R23.3 Spontaneous ecchymoses; E88.81 Metabolic syndrome and other insulin resistance; E11.9 Type 2 diabetes mellitus without complications; F41.9 Anxiety disorder, unspecified; F31.81 Bipolar II disorder; Q21.1 Atrial septal defect; G40.909 Epilepsy, unspecified, not intractable, without status epilepticus; K21.9 Gastro-esophageal reflux disease without esophagitis; E78.5 Hyperlipidemia, unspecified; F17.210 Nicotine dependence, cigarettes, uncomplicated; F43.10 Post-traumatic stress disorder, unspecified; Z86.73 Personal history of transient ischemic attack (TIA), and cerebral infarction without residual deficits; Z86.718 Personal history of other venous thrombosis and embolism; Z79.899 Other long term (current) drug therapy
CPT/HCPCS: 36415; 80053; 81270; 82728; 83540; 85007; 85025; 85027; 85610; 85730; 99213; 99214

== ENCOUNTER 2018-07-23 16:45 | Emergency (ER) | payer MEDICAID ==
[~2018-07-23] VITALS: Ht 154.9 cm; Wt 88.0 kg
[2018-07-23] MEDS ORDERED: IBUPROFEN 800 MG (MOTRIN) TAB PO ONE (17:15)
--- NOTE | 2018-07-23 17:16 | ED GI ---
General Chief Complaint: Rect Problems Stated Complaint: POST SURGERY BY NICO,BLOOD IN STOOL, PAIN Source of Information: Patient Exam Limitations: No Limitations History of Present Illness Date Seen by Provider: Jul 23, 2018 Time Seen by Provider: 17:11 Initial Comments This 33-year-old female presents with a complaint of rectal pain following procedure for her hemorrhoids with Dr. Llamas earlier this week. The patient had a procedure that sounds like Variation of cautery on her hemorrhoidal tissue. The area has essentially nonpainful and she has noted some small amount of blood in her stool. Fortunately there is minimal associated fever or chills, nausea or vomiting, abdominal pain, or other remarkable complaint. The patient has been using topical steroid cream to the rectal area. She has been using no oral medications. The patient's pain as sharp in nature, severe, and nonradiating. Allergies and Home Medications Allergies Coded Allergies: latex (Verified Allergy, Severe, BLISTERS, 08/24/17) penicillin (Verified Allergy, Severe, ITCHING, 08/24/17) Sulfa (Sulfonamide Antibiotics) (Verified Allergy, Unknown, RASH, 08/24/17) Home Medications Gabapentin 300 Mg Capsule, 300 MG PO 0800,1200, (Reported) Gabapentin 300 Mg Capsule, 600 MG PO HS, (Reported) TAKES 2 (300MG) CAPSULES Lurasidone HCl 60 Mg Tablet, 60 MG PO DAILY, (Reported) Quetiapine Fumarate 50 Mg Tablet, 50-100 MG PO HS PRN for SLEEP, (Reported) Patient Home Medication List Home Medication List Reviewed: Yes Review of Systems Review of Systems Constitutional: No chills, No fever EENTM: No Blurred Vision Cardiovascular: Denies Chest Pain Gastrointestinal: Denies Abdominal Pain Genitourinary: Denies Burning, Denies Frequency; Pain (in the rectal area) Musculoskeletal: No back pain Skin: no symptoms reported Psychiatric/Neurological: No Symptoms Reported Endocrine: No Symptoms Reported Hematologic/Lymphatic: No Symptoms Reported Past Qblcwvw-Flljar-Ytgbcd Hx Past Med/Social Hx: Reviewed Nursing Past Med/Soc Hx Patient Social History Alcohol Beverage of Choice: Other Type Used: Cigarettes 2nd Hand Smoke Exposure: Yes Recent Foreign Travel: No Contact w/Someone Who Travel: No Recent Hopitalizations: Yes (february had orbital fx) Immunizations Up To Date Tetanus Booster (TDap): Less than 5yrs PED Vaccines UTD: Yes Date of Pneumonia Vaccine: Feb 26, 2015 Date of Influenza Vaccine: Feb 17, 2018 Seasonal Allergies Seasonal Allergies: Yes Past Medical History Surgeries: Yes (ivc filter placed R femoral, R fasicotomy, loop recorder, r face surge) Cardiac, Orthopedic, 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, Vascular Surgery Respiratory: Yes Asthma Currently Using CPAP: No Currently Using BIPAP: No Cardiac: Yes (PFO, ATRIAL SHUNT, BLOD CLOTS IN LEGS-IVC FILTER) Congenital Heart Disease, Deep Vein Thrombosis, Palpitations Neurological: Yes (HASNT HAD SEIZURE SINCE 2010 possible one 03/03/18, STROKE 2013) Headaches /Migraines, Neuropathy, Seizure Disorder, Stroke 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 Disorders: No Female 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 Disorders: Denies 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, 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 Sexually Transmitted Disease: No HIV/AIDS: No Genitourinary: Yes Kidney Stones Gastrointestinal: Yes Colitis, Irritable Bowel Musculoskeletal: Yes (compartment syndrome ) Degenerate Disk Disease, Scoliosis, Chronic Back Pain, Fractures Endocrine: Yes (DIET CONTROLLED DIABETIC) Diabetes, Non-Insulin dep HEENT: Yes ("LEGALLY BLIND" ) Loss of Vision: Bilateral Hearing Impairment: Denies Cancer: No Psychosocial: Yes (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, DID) ADD/ADHD, Anxiety, PTSD, Suicide Attempts, Bipolar, Depression Integumentary: No Blood Disorders: No (hx anemia) Adverse Reaction/Blood Tranf: No (N/A) Family Medical History Antiphospholipid syndrome 19 MOTHER Diabetes mellitus 19 FATHER G8 BROTHER FH: aneurysm 19 FATHER FH: lupus 19 MOTHER FHx: congestive heart failure 19 FATHER FHx: renal failure 19 MOTHER Heart murmur 19 MOTHER Lupus anticoagulant disorder 19 MOTHER Patent foramen ovale 19 FATHER Barry syndrome G8 SISTER No Pertinent Family Hx Physical Exam Vital Signs Capillary Refill : Height/Weight/BMI Height: 5'1.00" Weight: 204lbs. 9.0oz. 92.783044by; 42.6 BMI Method:Stated General Appearance: WD/WN, no apparent distress HEENT: normal ENT inspection Neck: normal inspection Respiratory: lungs clear Cardiovascular: regular rate, rhythm Gastrointestinal: normal bowel sounds, non tender, soft Rectal: hemorrhoids (not thrombosed) Extremities: normal range of motion, normal inspection Neurologic/Psychiatric: no motor/sensory deficits, alert, normal mood/affect Skin: normal color, warm/dry Progress/Results/Core Measures Results/Orders My Orders Orders - EMILY BURROUGHS MD Ibuprofen Tablet (Motrin Tablet) (07/23/18 17:15) Progress Progress Note : Time: 17:15 Progress Note The patient's rectal exam demonstrated evidence of nonthrombosed hemorrhoids. There was no bleeding noted. I discussed options with the patient and she elected to try ibuprofen for her pain. In the event that this does not give her relief I wrote a prescription for her to have Ultram. I should follow closely with her surgeon tomorrow. She was invited to return to the emergency department if she any further problems or questions. Initial ECG Impression Date: Jul 23, 2018 Departure Impression Primary Impression: Hemorrhoids Qualified Codes: K64.9 - Unspecified hemorrhoids Disposition: HOME, SELF-CARE Condition: Unchanged Departure-Patient Inst. Decision time for Depature: 17:17 Referrals: SHRAVAN LLAMAS JULIE A MD (PCP/Family) Primary Care Physician Patient Instructions: Hemorrhoids Add. Discharge Instructions: Ibuprofen and/or Ultram for pain. Close follow-up with Dr. Llamas. Return if any problems or questions. All discharge instructions reviewed with patient and /or family. Voiced understanding. Scripts Tramadol HCl (Ultram) 50 Mg Tablet 50 MG PO Q4H for Pain, #20 TAB Prov: EMILY BURROUGHS MD 07/23/18 EMILY BURROUGHS MD Jul 23, 2018 17:16
[2018-07-23] MEDS ORDERED: TRAM-42 PO (17:19)
[2018-07-23 17:33] VITALS: BP 127/89
== END 2018-07-23 17:50 | disposition home or self-care (01) ==
LOC: EDUNIT# 16:45 → ER 16:46
DX: K64.9 Unspecified hemorrhoids (principal); J45.909 Unspecified asthma, uncomplicated; Q24.9 Congenital malformation of heart, unspecified; G43.909 Migraine, unspecified, not intractable, without status migrainosus; E11.40 Type 2 diabetes mellitus with diabetic neuropathy, unspecified; F98.8 Other specified behavioral and emotional disorders with onset usually occurring in childhood and adolescence; F90.9 Attention-deficit hyperactivity disorder, unspecified type; F41.9 Anxiety disorder, unspecified; F43.10 Post-traumatic stress disorder, unspecified; F31.9 Bipolar disorder, unspecified; G40.909 Epilepsy, unspecified, not intractable, without status epilepticus; M41.9 Scoliosis, unspecified; D64.9 Anemia, unspecified; K58.9 Irritable bowel syndrome, unspecified; Z98.890 Other specified postprocedural states; Z91.5 Personal history of self-harm; Z86.73 Personal history of transient ischemic attack (TIA), and cerebral infarction without residual deficits; Z82.49 Family history of ischemic heart disease and other diseases of the circulatory system; Z97.5 Presence of (intrauterine) contraceptive device; Z87.442 Personal history of urinary calculi; Z87.19 Personal history of other diseases of the digestive system; Z86.718 Personal history of other venous thrombosis and embolism; Z91.040 Latex allergy status; Z88.2 Allergy status to sulfonamides; Z88.0 Allergy status to penicillin; Z77.22 Contact with and (suspected) exposure to environmental tobacco smoke (acute) (chronic); Z98.51 Tubal ligation status; Z95.828 Presence of other vascular implants and grafts
CPT/HCPCS: 99283

== ENCOUNTER 2018-08-03 00:23 | Emergency (ER) | payer MEDICAID ==
[~2018-08-03] VITALS: Ht 154.9 cm; Wt 82.8 kg
[2018-08-03] MEDS ORDERED: MELO15TA39 (00:39)
--- NOTE | 2018-08-03 00:43 | ED Fall/Injury ---
General Chief Complaint: Upper Extremity Stated Complaint: LEFT ARM SWELLING-FELL Source: patient, other Exam Limitations: no limitations History of Present Illness Date Seen by Provider: Aug 03, 2018 Time Seen by Provider: 00:30 Initial Comments Patient presents to ER by private conveyance with her significant other and chief complaint that about 7:00 tonight she was stepping down one step to a lower level in her house when she fell forward landing on her outstretched left arm. She's having some pain and swelling in her distal left forearm and some pain in her left wrist. She took some Tylenol which has her pain comfortably management about a 6 out of 10. She denies loss of consciousness or striking her head. Allergies and Home Medications Allergies Coded Allergies: latex (Verified Allergy, Severe, BLISTERS, 08/24/17) penicillin (Verified Allergy, Severe, ITCHING, 08/24/17) Sulfa (Sulfonamide Antibiotics) (Verified Allergy, Unknown, RASH, 08/24/17) Home Medications Gabapentin 300 Mg Capsule, 300 MG PO 0800,1200, (Reported) Gabapentin 300 Mg Capsule, 600 MG PO HS, (Reported) TAKES 2 (300MG) CAPSULES Tramadol HCl 50 Mg Tablet, 50 MG PO Q4H Prescribed by: EMILY BURROUGHS MD on 07/23/18 0053 Patient Home Medication List Home Medication List Reviewed: Yes Review of Systems Review of Systems Constitutional: No chills, No fever Eyes: Denies Blindness, Denies Blurred Vision Ears, Nose, Mouth, Throat: denies ear pain, denies ear discharge Respiratory: No cough, No dyspnea on exertion Cardiovascular: No chest pain, No edema Gastrointestinal: No abdominal pain, No constipation, No diarrhea, No dysphagia Genitourinary: No dysuria, No pain Past Smgvfyh-Vtnxzo-Wrdacb Hx Patient Social History Alcohol Use: Denies Use Alcohol Beverage of Choice: Other Recreational Drug Use: No Smoking Status: Current Everyday Smoker Type Used: Cigarettes 2nd Hand Smoke Exposure: Yes Recent Foreign Travel: No Contact w/Someone Who Travel: No Recent Hopitalizations: No Immunizations Up To Date Tetanus Booster (TDap): Less than 5yrs PED Vaccines UTD: Yes Date of Pneumonia Vaccine: Feb 26, 2015 Date of Influenza Vaccine: Feb 17, 2018 Seasonal Allergies Seasonal Allergies: Yes Past Medical History Surgeries: Yes (ivc filter placed R femoral, R fasicotomy, loop recorder, r face surge, hem) Cardiac, Orthopedic, 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, Vascular Surgery Respiratory: Yes Asthma Currently Using CPAP: No Currently Using BIPAP: No Cardiac: Yes (PFO, ATRIAL SHUNT, BLOD CLOTS IN LEGS-IVC FILTER) Congenital Heart Disease, Deep Vein Thrombosis, Palpitations Neurological: Yes (HASNT HAD SEIZURE SINCE 2010 possible one 03/03/18, STROKE 2013) Headaches /Migraines, Neuropathy, Seizure Disorder, Stroke 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 Disorders: No 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, 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 Sexually Transmitted Disease: No HIV/AIDS: No Genitourinary: Yes Kidney Stones Gastrointestinal: Yes Colitis, Irritable Bowel Musculoskeletal: Yes (compartment syndrome ) Degenerate Disk Disease, Scoliosis, Chronic Back Pain, Fractures Endocrine: Yes (DIET CONTROLLED DIABETIC) Diabetes, Non-Insulin dep HEENT: Yes ("LEGALLY BLIND" ) Loss of Vision: Bilateral Hearing Impairment: Denies Cancer: No Psychosocial: Yes (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, DID) ADD/ADHD, Anxiety, PTSD, Suicide Attempts, Bipolar, Depression Integumentary: No Blood Disorders: No (hx anemia) Adverse Reaction/Blood Tranf: No (N/A) Family Medical History Antiphospholipid syndrome 19 MOTHER Diabetes mellitus 19 FATHER G8 BROTHER FH: aneurysm 19 FATHER FH: lupus 19 MOTHER FHx: congestive heart failure 19 FATHER FHx: renal failure 19 MOTHER Heart murmur 19 MOTHER Lupus anticoagulant disorder 19 MOTHER Patent foramen ovale 19 FATHER Barry syndrome G8 SISTER No Pertinent Family Hx Physical Exam Vital Signs Vital Signs - First Documented 08/03/18 00:31 Temp 98.3 Pulse 102 Resp 18 B/P (MAP) 143/90 (107) Pulse Ox 100 O2 Delivery Room Air Capillary Refill : Height, Weight, BMI Height: 5'1.00" Weight: 194lbs. 9.0oz. 87.208548qg; 42.6 BMI Method:Stated General Appearance: WD/WN, no apparent distress HEENT: PERRL/EOMI, normal ENT inspection, pharynx normal Neck: non-tender, full range of motion, supple, normal inspection Cardiovascular: normal peripheral pulses, regular rate, rhythm, no edema Respiratory: lungs clear, normal breath sounds, no respiratory distress, no accessory muscle use Peripheral Pulses: 2+ Radial Pulses (R), 2+ Radial Pulses (L) Gastrointestinal: normal bowel sounds, non tender, soft, no organomegaly Extremities: normal range of motion, non-tender, normal capillary refill Neurologic/Psychiatric: alert, normal mood/affect, oriented x 3 Skin: normal color, warm/dry Progress/Results/Core Measures Results/Orders My Orders Orders - MAURIZIO THURMAN Forearm, Left, 2 Views (08/03/18 00:35) Wrist, Left, 3 Views Or More (08/03/18 00:35) Vital Signs/I&O 08/03/18 00:31 Temp 98.3 Pulse 102 Resp 18 B/P (MAP) 143/90 (107) Pulse Ox 100 O2 Delivery Room Air Progress Progress Note : Time: 00:43 Progress Note Good distal pulses and sensation. Capillary refill brisk less than 2 seconds distal fingers on left upper extremity. X-ray of the left wrist and forearm. Diagnostic Imaging Diagonstic Imaging: Xray Plain Films/CT/US/NM/MRI: forearm Comments No acute osseous abnormalities. Reviewed: Reviewed by Me Departure Impression Primary Impression: Fall at home Qualified Codes: W19.XXXA - Unspecified fall, initial encounter; Y92.009 - Unspecified place in unspecified non-institutional (private) residence as the place of occurrence of the external cause Additional Impression: Hematoma Disposition: 01 HOME, SELF-CARE Condition: Stable Departure-Patient Inst. Decision time for Depature: 00:52 Referrals: HIEU YAP MD (PCP/Family) Primary Care Physician Patient Instructions: Common Wrist Injuries (DC) Add. Discharge Instructions: Apply ice and an Oneil bandage for the next couple days. Use Tylenol and/or ibuprofen as necessary for pain. If your pain in your wrist persists beyond 10 days or getting worse follow-up with your primary care doctor for further evaluation. All discharge instructions reviewed with patient and/or family. Voiced understanding. MAURIZIO THURMAN Aug 03, 2018 00:43
[2018-08-03 01:02] VITALS: BP 0/0
--- NOTE | 2018-08-03 04:29 | Diagnostic Imaging Report ---
Indication: Left arm pain 2 views of the left forearm show no fracture or dislocation. Impression: Negative left forearm Dictated by: Dictated on workstation # [id number]
--- NOTE | 2018-08-03 04:45 | Diagnostic Imaging Report ---
Indication: Left wrist pain 3 views of the left wrist show no fracture, dislocation or other acute abnormalities. Impression: Negative left wrist Dictated by: Dictated on workstation # [id number]
== END 2018-08-03 01:01 | disposition home or self-care (01) ==
LOC: EDUNIT# 00:23 → ER 00:25
DX: S60.212A Contusion of left wrist, initial encounter (principal); J45.909 Unspecified asthma, uncomplicated; Q24.9 Congenital malformation of heart, unspecified; G40.909 Epilepsy, unspecified, not intractable, without status epilepticus; K58.9 Irritable bowel syndrome, unspecified; E11.40 Type 2 diabetes mellitus with diabetic neuropathy, unspecified; F98.8 Other specified behavioral and emotional disorders with onset usually occurring in childhood and adolescence; F90.9 Attention-deficit hyperactivity disorder, unspecified type; F41.9 Anxiety disorder, unspecified; F43.10 Post-traumatic stress disorder, unspecified; F31.9 Bipolar disorder, unspecified; M41.9 Scoliosis, unspecified; G43.909 Migraine, unspecified, not intractable, without status migrainosus; F17.210 Nicotine dependence, cigarettes, uncomplicated; Z91.5 Personal history of self-harm; Z82.49 Family history of ischemic heart disease and other diseases of the circulatory system; Z98.51 Tubal ligation status; Z97.5 Presence of (intrauterine) contraceptive device; Z87.19 Personal history of other diseases of the digestive system; Z87.442 Personal history of urinary calculi; Z86.73 Personal history of transient ischemic attack (TIA), and cerebral infarction without residual deficits; Z95.828 Presence of other vascular implants and grafts; Z86.718 Personal history of other venous thrombosis and embolism; Z98.890 Other specified postprocedural states; Z91.040 Latex allergy status; Z88.0 Allergy status to penicillin; Z88.2 Allergy status to sulfonamides; W10.8XXA Fall (on) (from) other stairs and steps, initial encounter; Y92.009 Unspecified place in unspecified non-institutional (private) residence as the place of occurrence of the external cause
CPT/HCPCS: 73090; 73110

== ENCOUNTER 2018-08-17 21:57 | Emergency (ER) | payer MEDICAID ==
[~2018-08-17] VITALS: Ht 180.3 cm; Wt 87.5 kg
[~2018-08-17 21:57] MED LIST changes: +MELO15TA39
[2018-08-17] MEDS ORDERED: ACETAMINOPHEN 500 MG TAB (TYLENOL) PO ONE (22:15)
--- NOTE | 2018-08-17 22:17 | ED Upper Extremity ---
General Chief Complaint: Upper Extremity Stated Complaint: L HAND PAIN Nursing Triage Note: Pt amb to room #5 w/p difficulty. A&OX4. 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 Pt reports lt hand/hand was shut in a door @ her home. No obvious deforminity noted. Distal cap refill <2 seconds. Pt able to flex all five fingers to lt hand. Mild swelling noted. Pt noted to be tearful. Nursing Sepsis Screen: No Definite Risk Source: patient Exam Limitations: no limitations History of Present Illness Date Seen by Provider: August 17, 2018 Time Seen by Provider: 22:03 Initial Comments 33-year-old female who presents to the emergency room with complaints of left thumb pain after the thumb shut any door 1 hour prior to arrival. She has full movement of all 5 fingers to the left hand. There is mild swelling to the left thumb. Normal distal capillary refill. Onset: just prior to arrival Pain/Injury Location: left thumb Method of Injury: unknown Allergies and Home Medications Allergies Coded Allergies: latex (Verified Allergy, Severe, BLISTERS, 08/24/17) penicillin (Verified Allergy, Severe, ITCHING, 08/24/17) Sulfa (Sulfonamide Antibiotics) (Verified Allergy, Unknown, RASH, 08/24/17) Home Medications Gabapentin 300 Mg Capsule, 300 MG PO 0800,1200, (Reported) Gabapentin 300 Mg Capsule, 600 MG PO HS, (Reported) TAKES 2 (300MG) CAPSULES Tramadol HCl 50 Mg Tablet, 50 MG PO Q4H Prescribed by: EMILY BURROUGHS MD on 07/23/18 9711 Patient Home Medication List Home Medication List Reviewed: Yes Review of Systems Constitutional: see HPI; No chills, No fever Musculoskeletal: see HPI, joint pain (Left thumb pain) All Other Systems Reviewed Negative Unless Noted: Yes Past Wfdkorh-Gmogrx-Gmwtrs Hx Past Med/Social Hx: Reviewed Nursing Past Med/Soc Hx Patient Social History Alcohol Use: Denies Use Number of Drinks Today: II Alcohol Beverage of Choice: Other Recreational Drug Use: No Smoking Status: Current Everyday Smoker Type Used: Cigarettes 2nd Hand Smoke Exposure: Yes Recent Foreign Travel: No Contact w/Someone Who Travel: No Recent Infectious Disease Expo: No Recent Hopitalizations: No Immunizations Up To Date Tetanus Booster (TDap): Less than 5yrs PED Vaccines UTD: Yes Date of Pneumonia Vaccine: Feb 26, 2015 Date of Influenza Vaccine: Feb 17, 2018 Seasonal Allergies Seasonal Allergies: Yes Past Medical History Surgeries: Yes (ivc filter placed R femoral, R fasicotomy, loop recorder, r face surge, hem) Cardiac, Orthopedic, 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, Vascular Surgery Respiratory: Yes Asthma Currently Using CPAP: No Currently Using BIPAP: No Cardiac: Yes (PFO, ATRIAL SHUNT, BLOD CLOTS IN LEGS-IVC FILTER) Congenital Heart Disease, Deep Vein Thrombosis, Palpitations Neurological: Yes (HASNT HAD SEIZURE SINCE 2010 possible one 03/03/18, STROKE 2013) Headaches /Migraines, Neuropathy, Seizure Disorder, Stroke 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 Disorders: No 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, 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 Sexually Transmitted Disease: No HIV/AIDS: No Genitourinary: Yes Kidney Stones Gastrointestinal: Yes Colitis, Irritable Bowel Musculoskeletal: Yes (compartment syndrome ) Degenerate Disk Disease, Scoliosis, Chronic Back Pain, Fractures Endocrine: Yes (DIET CONTROLLED DIABETIC) Diabetes, Non-Insulin dep HEENT: Yes ("LEGALLY BLIND" ) Loss of Vision: Bilateral Hearing Impairment: Denies Cancer: No Psychosocial: Yes (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, DID) ADD/ADHD, Anxiety, PTSD, Suicide Attempts, Bipolar, Depression Integumentary: No Blood Disorders: No (hx anemia) Adverse Reaction/Blood Tranf: No (N/A) Family Medical History Reviewed Nursing Family Hx Antiphospholipid syndrome 19 MOTHER Diabetes mellitus 19 FATHER G8 BROTHER FH: aneurysm 19 FATHER FH: lupus 19 MOTHER FHx: congestive heart failure 19 FATHER FHx: renal failure 19 MOTHER Heart murmur 19 MOTHER Lupus anticoagulant disorder 19 MOTHER Patent foramen ovale 19 FATHER Barry syndrome G8 SISTER No Pertinent Family Hx Physical Exam Vital Signs Vital Signs - First Documented 08/17/18 22:00 Temp 98.1 Pulse 116 Resp 22 B/P (MAP) 128/108 (115) Pulse Ox 100 O2 Delivery Room Air Capillary Refill : Less Than 3 Seconds Height, Weight, BMI Height: 5'11.00" Weight: 193lbs. 9.0oz. 87.805594yp; 42.6 BMI Method:Stated General Appearance: WD/WN, no apparent distress Cardiovascular: normal peripheral pulses, regular rate, rhythm, no edema, no gallop, no JVD, no murmur Respiratory: chest non-tender, lungs clear, normal breath sounds, no respiratory distress, no accessory muscle use Hand: Left, swelling (Pain and swelling to the left thumb) Neurologic/Tendon: normal sensation, normal motor functions, normal tendon functions, responds to pain, no evidence tendon injury Neurologic/Psychiatric: alert, normal mood/affect, oriented x 3 Skin: normal color, warm/dry Progress/Results/Core Measures Results/Orders My Orders Medications Given in ED Vital Signs/I&O Blood Pressure Mean: 115 Progress Progress Note : Time: 22:13 Progress Note The patient requested Tylenol for pain. Medication was ordered. Diagnostic Imaging Diagonstic Imaging: Xray Comments NAME: COLTON ORTIZ [facility] REC#: [id number] PT STATUS: DEP ER : 1985 PHYSICIAN: MAGDY GÓMEZ ADMIT DATE: 08/17/18/ER Signed Date of Exam: 08/17/18 HAND, LEFT, 3 VIEWS EXAM: HAND, LEFT, 3 VIEWS INDICATION: Left hand pain. COMPARISON: Left wrist radiographs 08/03/2018. FINDINGS: No fracture or malalignment. No suspicious osteoblastic or lytic lesions. Soft tissue shadows are unremarkable. IMPRESSION: No acute radiographic findings in the left hand. Dictated by: Dictated on workstation # [id number] Dict: 08/18/18 0708 Trans: 08/18/18 1012 Interpreted by: TEN BETANCUR MD Electronically signed by: TEN BETANCUR MD 08/18/18 1012 Reviewed: Reviewed by Me Departure Impression Primary Impression: Contusion of left thumb Disposition: 01 HOME, SELF-CARE Condition: Stable/Unchanged Departure-Patient Inst. Decision time for Depature: 22:44 Referrals: HIEU YAP MD (PCP/Family) Primary Care Physician Patient Instructions: Contusion (DC) Add. Discharge Instructions: You may use ice to the sore areas at 20 minute intervals. Wear the brace as needed for comfort. Tylenol and ibuprofen as directed by the bottle for pain relief. Follow-up with your doctor within 1 week for a recheck. Return back to the emergency room for worsening symptoms or concerns as needed. All discharge instructions reviewed with patient and/or family. Voiced understanding. MAGDY GÓMEZ August 17, 2018 22:17
[2018-08-17 22:50] VITALS: BP 118/98
--- NOTE | 2018-08-18 07:11 | Diagnostic Imaging Report ---
EXAM: HAND, LEFT, 3 VIEWS INDICATION: Left hand pain. COMPARISON: Left wrist radiographs 08/03/2018. FINDINGS: No fracture or malalignment. No suspicious osteoblastic or lytic lesions. Soft tissue shadows are unremarkable. IMPRESSION: No acute radiographic findings in the left hand. Dictated by: Dictated on workstation # [id number]
== END 2018-08-17 22:51 | disposition home or self-care (01) ==
LOC: EDUNIT# 21:57 → ER 21:58
DX: S60.112A Contusion of left thumb with damage to nail, initial encounter (principal); J45.909 Unspecified asthma, uncomplicated; G40.909 Epilepsy, unspecified, not intractable, without status epilepticus; E11.40 Type 2 diabetes mellitus with diabetic neuropathy, unspecified; G43.909 Migraine, unspecified, not intractable, without status migrainosus; K58.9 Irritable bowel syndrome, unspecified; M41.9 Scoliosis, unspecified; F90.9 Attention-deficit hyperactivity disorder, unspecified type; F98.8 Other specified behavioral and emotional disorders with onset usually occurring in childhood and adolescence; F41.9 Anxiety disorder, unspecified; F43.10 Post-traumatic stress disorder, unspecified; D64.9 Anemia, unspecified; F31.9 Bipolar disorder, unspecified; F17.210 Nicotine dependence, cigarettes, uncomplicated; Z91.040 Latex allergy status; Z82.49 Family history of ischemic heart disease and other diseases of the circulatory system; Z86.718 Personal history of other venous thrombosis and embolism; Z91.5 Personal history of self-harm; Z97.5 Presence of (intrauterine) contraceptive device; Z87.19 Personal history of other diseases of the digestive system; Z87.442 Personal history of urinary calculi; Z86.73 Personal history of transient ischemic attack (TIA), and cerebral infarction without residual deficits; Z88.0 Allergy status to penicillin; Z88.2 Allergy status to sulfonamides; Z95.828 Presence of other vascular implants and grafts; Z98.890 Other specified postprocedural states; Z98.51 Tubal ligation status; W23.0XXA Caught, crushed, jammed, or pinched between moving objects, initial encounter
CPT/HCPCS: 73130

== ENCOUNTER → 2018-08-23 | Outpatient (CLI) | payer MEDICAID ==
[~2018-08-23] MED LIST changes: +ACHD5005 PO; +ONDA4TAB11 PO
--- NOTE | 2018-08-23 13:29 | Diagnostic Imaging Report ---
INDICATION: Bilateral galactorrhea. COMPARISON: No prior mammograms are available for comparison. TECHNIQUE: Bilateral 2D and 3D diagnostic mammography was performed. The current study was evaluated with a Computer Aided Detection (CAD) system. FINDINGS: There is an asymmetric density in the upper outer aspect of the left breast at posterior depth. This may represent benign parenchymal asymmetry. No other suspicious density is seen. No malignant appearing microcalcifications are identified. The axillae are unremarkable. IMPRESSION: There is an asymmetric density in the upper outer left breast at posterior depth. This may represent benign parenchymal asymmetry but further evaluation of this area with ultrasound is recommended. In addition, sonographic interrogation of the bilateral retroareolar regions is recommended due to galactorrhea and will be performed today. ACR BI-RADS Category 0: Incomplete. (Needs additional imaging evaluation). Result letter will be mailed to the patient. Note: At least 10% of breast cancer is not imaged by mammography. Dictated by: Dictated on workstation # [id number]
--- NOTE | 2018-08-23 15:17 | Diagnostic Imaging Report ---
PROCEDURE: US Non-ob pelvis comp/trans. TECHNIQUE: Multiple real-time grayscale images were obtained of the pelvis in various projections endovaginally. Transabdominal imaging was also performed. INDICATION: IUD string lost. Study is performed for further evaluation. FINDINGS: Uterus measures 9.0 x 5.0 x 4.1 cm. Endometrium is 5 mm in thickness. There appears to be an IUD appropriately centered in the endometrial canal. No myometrial mass is seen. The right ovary was not visualized. Left ovary measures 4.6 x 2.4 x 1.7 cm. There is a probable hemorrhagic cyst involving the left ovary measuring 2.1 x 1.7 cm. No free fluid is seen. IMPRESSION: 1. The IUD appears to be appropriately centered in the endometrial canal. 2. 2.1 cm left ovarian hemorrhagic cyst. Dictated by: Dictated on workstation # [id number]
--- NOTE | 2018-08-23 15:46 | Diagnostic Imaging Report ---
INDICATION: Bilateral galactorrhea. Patient also has asymmetric density in the upper outer left breast. This study is performed for further evaluation. COMPARISON: Correlation is made with the diagnostic mammogram from earlier this same date. FINDINGS: The upper-outer left breast was evaluated from the 11 to 4 o'clock location. No sonographic abdominal is seen. No solid or cystic mass is detected. The retroareolar regions of both breasts were also evaluated. No sonographic abnormality is seen. No solid or cystic mass is seen. IMPRESSION: No sonographic abnormality is identified. ACR BI-RADS Category 1: Negative. Dictated by: Dictated on workstation # [id number]
== END ==
LOC: RAD 11:07
PROVIDERS: ATTEND Obstetrics & Gynecology
DX: T83.32XA Displacement of intrauterine contraceptive device, initial encounter (principal); N83.202 Unspecified ovarian cyst, left side; N60.19 Diffuse cystic mastopathy of unspecified breast; N64.3 Galactorrhea not associated with childbirth; Z91.89 Other specified personal risk factors, not elsewhere classified
CPT/HCPCS: 76642; 76830; 76856; 77066

== ENCOUNTER 2018-08-24 02:54 | Emergency (ER) | payer MEDICAID ==
[~2018-08-24] VITALS: Ht 162.6 cm; Wt 82.6 kg
[~2018-08-24 02:54] MED LIST changes: -ACHD5005 PO; -ONDA4TAB11 PO
[2018-08-24] MEDS ORDERED: KETOROLAC 30 MG/ML VIAL ONE (03:41)
--- NOTE | 2018-08-24 04:09 | ED Abdominal Pain ---
General Chief Complaint: Abdominal/GI Problems Stated Complaint: SEVERE PAIN IN LOWER ABD Nursing Triage Note: Pt complaining of severe RLQ pain that started when she woke up yesterday morning but has gotten much worse as the day progressed. Sepsis Screen: No Definite Risk Source of Information: Patient Exam Limitations: No Limitations History of Present Illness Date Seen by Provider: August 24, 2018 Time Seen by Provider: 03:56 Initial Comments Patient presents to ER with her significant other and chief complaint of severe right lower quadrant and suprapubic abdominal pain radiating down to her right lower back. She says she's had kidney stones before but they don't feel like this. She's never had any surgeries on her abdomen. She is on control. She denies any discharge from the vagina or bleeding. She does not have any dysuria or hematuria. She denies routine opiate use. She did have one incidence of diarrhea earlier tonight. Her pain started out of the blue last evening and has progressively gotten worse. She's had no fevers or chills sweats cough shortness of breath or constipation. She has not taken any antacids, antipyretics etc. She's vomited 2 or 3 times since her pain started. Allergies and Home Medications Allergies Coded Allergies: latex (Verified Allergy, Severe, BLISTERS, 08/24/17) penicillin (Verified Allergy, Severe, ITCHING, 08/24/17) Sulfa (Sulfonamide Antibiotics) (Verified Allergy, Unknown, RASH, 08/24/17) Home Medications Gabapentin 300 Mg Capsule, 300 MG PO 0800,1200, (Reported) Gabapentin 300 Mg Capsule, 600 MG PO HS, (Reported) TAKES 2 (300MG) CAPSULES Tramadol HCl 50 Mg Tablet, 50 MG PO Q4H Prescribed by: EMILY BURROUGHS MD on 07/23/18 7888 Patient Home Medication List Home Medication List Reviewed: Yes Review of Systems Review of Systems Constitutional: No chills, No diaphoresis EENTM: No Blurred Vision, No Double Vision Respiratory: Denies Cough, Denies Shortness of Air Cardiovascular: Denies Chest Pain, Denies Edema Gastrointestinal: See HPI; Denies Abdomen Distended; Abdominal Pain, Nausea, Vomiting Genitourinary: Denies Burning, Denies Discharge Musculoskeletal: No back pain, No joint pain Skin: No pruritus, No rash Psychiatric/Neurological: Denies Headache, Denies Numbness, Denies Paresthesia Past Hiisgqf-Lzkhxq-Yejcan Hx Patient Social History Alcohol Use: Denies Use Alcohol Beverage of Choice: Other Recreational Drug Use: No Smoking Status: Never a Smoker Type Used: Cigarettes 2nd Hand Smoke Exposure: No Recent Foreign Travel: No Contact w/Someone Who Travel: No Recent Infectious Disease Expo: No Recent Hopitalizations: No Immunizations Up To Date Tetanus Booster (TDap): Less than 5yrs PED Vaccines UTD: Yes Date of Pneumonia Vaccine: Feb 26, 2015 Date of Influenza Vaccine: Feb 17, 2018 Seasonal Allergies Seasonal Allergies: Yes Past Medical History Surgeries: Yes (ivc filter placed R femoral, R fasicotomy, loop recorder, r face surge, hem) Cardiac, Orthopedic, 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, Vascular Surgery Respiratory: Yes Asthma Currently Using CPAP: No Currently Using BIPAP: No Cardiac: Yes (PFO, ATRIAL SHUNT, BLOD CLOTS IN LEGS-IVC FILTER) Congenital Heart Disease, Deep Vein Thrombosis, Palpitations Neurological: Yes (HASNT HAD SEIZURE SINCE 2010 possible one 03/03/18, STROKE 2013) Headaches /Migraines, Neuropathy, Seizure Disorder, Stroke 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 Disorders: No Female 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 Disorders: 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, 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 Sexually Transmitted Disease: No HIV/AIDS: No Genitourinary: Yes Kidney Stones Gastrointestinal: Yes Colitis, Irritable Bowel Musculoskeletal: Yes (compartment syndrome ) Degenerate Disk Disease, Scoliosis, Chronic Back Pain, Fractures Endocrine: Yes (DIET CONTROLLED DIABETIC) Diabetes, Non-Insulin dep HEENT: Yes ("LEGALLY BLIND" ) Loss of Vision: Bilateral Hearing Impairment: Denies Cancer: No Psychosocial: Yes (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, DID) ADD/ADHD, Anxiety, PTSD, Suicide Attempts, Bipolar, Depression Integumentary: No Blood Disorders: No (hx anemia) Adverse Reaction/Blood Tranf: No (N/A) Family Medical History Antiphospholipid syndrome 19 MOTHER Diabetes mellitus 19 FATHER G8 BROTHER FH: aneurysm 19 FATHER FH: lupus 19 MOTHER FHx: congestive heart failure 19 FATHER FHx: renal failure 19 MOTHER Heart murmur 19 MOTHER Lupus anticoagulant disorder 19 MOTHER Patent foramen ovale 19 FATHER Barry syndrome G8 SISTER No Pertinent Family Hx Physical Exam Vital Signs Vital Signs - First Documented 08/24/18 03:08 Temp 98.3 Pulse 96 Resp 20 B/P (MAP) 135/87 (103) Pulse Ox 100 O2 Delivery Room Air Capillary Refill : Less Than 3 Seconds Height/Weight/BMI Height: 5'4.00" Weight: 182lbs. 9.0oz. 82.589509mz; 42.6 BMI Method:Stated General Appearance: WD/WN, mild distress HEENT: PERRL/EOMI, normal ENT inspection, pharynx normal Neck: full range of motion, normal inspection Respiratory: normal breath sounds, no respiratory distress, no accessory muscle use Cardiovascular: normal peripheral pulses, regular rate, rhythm Peripheral Pulses: 2+ Radial Pulses (R), 2+ Radial Pulses (L) Gastrointestinal: normal bowel sounds, soft, tenderness (suprapubic and bilateral lower quadrants without McBurney's point rebound tenderness, mesenteric signs, psoas signs) Extremities: normal range of motion, normal capillary refill Neurologic/Psychiatric: alert, normal mood/affect, oriented x 3 Skin: normal color, warm/dry Progress/Results/Core Measures Results/Orders Lab Results Laboratory Tests Test 08/24/18 03:53 08/24/18 04:23 Range/Units White Blood Count 8.9 4.3-11.0 10^3/uL Red Blood Count 4.46 4.35-5.85 10^6/uL Hemoglobin 12.0 11.5-16.0 G/DL Hematocrit 37 35-52 % Mean Corpuscular Volume 82 80-99 FL Mean Corpuscular Hemoglobin 27 25-34 PG Mean Corpuscular Hemoglobin Concent 33 32-36 G/DL Red Cell Distribution Width 15.8 H 10.0-14.5 % Platelet Count 386 130-400 10^3/uL Mean Platelet Volume 9.9 7.4-10.4 FL Neutrophils (%) (Auto) 46 42-75 % Lymphocytes (%) (Auto) 45 H 12-44 % Monocytes (%) (Auto) 6 0-12 % Eosinophils (%) (Auto) 3 0-10 % Basophils (%) (Auto) 0 0-10 % Neutrophils # (Auto) 4.1 1.8-7.8 X 10^3 Lymphocytes # (Auto) 4.0 1.0-4.0 X 10^3 Monocytes # (Auto) 0.5 0.0-1.0 X 10^3 Eosinophils # (Auto) 0.3 0.0-0.3 10^3/uL Basophils # (Auto) 0.0 0.0-0.1 10^3/uL Sodium Level 137 135-145 MMOL/L Potassium Level 3.7 3.6-5.0 MMOL/L Chloride Level 109 H 98-107 MMOL/L Carbon Dioxide Level 16 L 21-32 MMOL/L Anion Gap 12 5-14 MMOL/L Blood Urea Nitrogen 7 7-18 MG/DL Creatinine 0.66 0.60-1.30 MG/DL Estimat Glomerular Filtration Rate > 60 BUN/Creatinine Ratio 11 Glucose Level 98 70-105 MG/DL Calcium Level 9.5 8.5-10.1 MG/DL Corrected Calcium 9.4 8.5-10.1 MG/DL Total Bilirubin 0.4 0.1-1.0 MG/DL Aspartate Amino Transf (AST/SGOT) 12 5-34 U/L Alanine Aminotransferase (ALT/SGPT) 17 0-55 U/L Alkaline Phosphatase 39 L 40-136 U/L C-Reactive Protein High Sensitivity 0.90 H 0.00-0.50 MG/DL Total Protein 7.2 6.4-8.2 GM/DL Albumin 4.1 3.2-4.5 GM/DL Lipase 30 8-78 U/L Urine Color YELLOW Urine Clarity SLIGHTLY CLOUDY Urine pH 7 5-9 Urine Specific Fenton 1.010 L 1.016-1.022 Urine Protein NEGATIVE NEGATIVE Urine Glucose (UA) NEGATIVE NEGATIVE Urine Ketones NEGATIVE NEGATIVE Urine Nitrite NEGATIVE NEGATIVE Urine Bilirubin NEGATIVE NEGATIVE Urine Urobilinogen NORMAL NORMAL MG/DL Urine Leukocyte Esterase NEGATIVE NEGATIVE Urine RBC (Auto) NEGATIVE NEGATIVE Urine RBC NONE /HPF Urine WBC RARE /HPF Urine Squamous Epithelial Cells 10-25 H /HPF Urine Crystals NONE /LPF Urine Bacteria TRACE /HPF Urine Casts NONE /LPF Urine Mucus SMALL H /LPF Urine Culture Indicated NO Urine Opiates Screen NEGATIVE NEGATIVE Urine Oxycodone Screen NEGATIVE NEGATIVE Urine Methadone Screen NEGATIVE NEGATIVE Urine Propoxyphene Screen NEGATIVE NEGATIVE Urine Barbiturates Screen NEGATIVE NEGATIVE Ur Tricyclic Antidepressants Screen NEGATIVE NEGATIVE Urine Phencyclidine Screen NEGATIVE NEGATIVE Urine Amphetamines Screen NEGATIVE NEGATIVE Urine Methamphetamines Screen NEGATIVE NEGATIVE Urine Benzodiazepines Screen NEGATIVE NEGATIVE Urine Cocaine Screen NEGATIVE NEGATIVE Urine Cannabinoids Screen NEGATIVE NEGATIVE My Orders Orders - MAURIZIO THURMAN Ua Culture If Indicated (08/24/18 03:07) Urine Bedside (08/24/18 03:07) Drug Screen Stat (Urine) (08/24/18 03:07) Ketorolac Injection (Toradol Injection) (08/24/18 03:41) Fentanyl Injection (Sublimaze Injection (08/24/18 04:15) Ondansetron Injection (Zofran Injectio (08/24/18 04:15) Ketorolac Injection (Toradol Injection) (08/24/18 04:15) Cbc With Automated Diff (08/24/18 04:05) Comprehensive Metabolic Panel (08/24/18 04:05) Hs C Reactive Protein (08/24/18 04:05) Lipase (08/24/18 04:05) Ct Abd/Pelvis Wo(Kidney Stone) (08/24/18 04:31) Medications Given in ED Current Medications Medications Dose Ordered Sig/Diomedes Route Start Time Stop Time Status Last Admin Dose Admin Fentanyl Citrate 75 mcg ONCE ONCE IVP 08/24/18 04:15 08/24/18 04:16 DC 08/24/18 04:12 75 MCG Ketorolac Tromethamine 30 mg STK-MED ONCE .ROUTE 08/24/18 03:41 08/24/18 03:46 DC 08/24/18 03:50 30 MG Ondansetron HCl 4 mg ONCE ONCE IVP 08/24/18 04:15 08/24/18 04:16 DC 08/24/18 04:12 4 MG Vital Signs/I&O 08/24/18 03:08 Temp 98.3 Pulse 96 Resp 20 B/P (MAP) 135/87 (103) Pulse Ox 100 O2 Delivery Room Air Blood Pressure Mean: 103 Progress Progress Note : Time: 05:17 Progress Note Ovarian cyst rupture Diagnostic Imaging Diagonstic Imaging: CT Plain Films/CT/US/NM/MRI: abdomen, pelvis Comments Negative for obstructive uropathy. Function system left ovary with a small amount of fluid near the left adnexa independent pelvis likely physiologic or secondary to partial cyst rupture. Reviewed: Reviewed by Me Departure Impression Primary Impression: Ovarian cyst Qualified Codes: N83.202 - Unspecified ovarian cyst, left side Disposition: 01 HOME, SELF-CARE Condition: Stable Departure-Patient Inst. Decision time for Depature: 05:19 Referrals: HIEU YAP MD (PCP/Family) Primary Care Physician Patient Instructions: Ovarian Cyst (DC) Add. Discharge Instructions: Follow-up with primary care or MANAGER OF CUSTOMER BILLING as necessary for continued management. Heating pads, Tylenol and Motrin as necessary for pain. If you have severe breakthrough pain then you can use the hydrocodone one tablet every 6 hours as necessary. All discharge instructions reviewed with patient and/or family. Voiced understanding. Scripts Ondansetron (Ondansetron Odt) 4 Mg Tab.rapdis 4 MG PO Q6H PRN for NAUSEA/VOMITING, #8 TAB 0 Refills Prov: MAURIZIO THURMAN 08/24/18 Hydrocodone Bit/Acetaminophen (Hydrocodone/Acetaminophen 5/325mg Tablet) 1 Tab Tab 1 EACH PO Q4-6HR PRN for PAIN-MODERATE MDD 10 for 3 Days, #10 TAB 0 Refills Prov: MAURIZIO THURMAN 08/24/18 MAURIZIO THURMAN August 24, 2018 04:09
[2018-08-24 04:12] LABS: BASOPHILS % (AUTO) 0 % (0-10); EOSINOPHILS # (AUTO) 0.3 10^3/uL (0.0-0.3); EOSINOPHILS % (AUTO) 3 % (0-10); HEMATOCRIT 37 % (35-52); LYMPHOCYTES % (AUTO) 45 % (12-44); MEAN CORPUSCULAR HEMOGLOBIN 27 PG (25-34); MEAN CORPUSCULAR HGB CONC 33 G/DL (32-36); MEAN CORPUSCULAR VOLUME 82 FL (80-99); MEAN PLATELET VOLUME 9.9 FL (7.4-10.4); MONOCYTES # (AUTO) 0.5 X 10^3 (0.0-1.0); MONOCYTES % (AUTO) 6 % (0-12); NEUTROPHILS # (AUTO) 4.1 X 10^3 (1.8-7.8); NEUTROPHILS % (AUTO) 46 % (42-75); PLATELET COUNT 386 10^3/uL (130-400); RED CELL DISTRIBUTION WIDTH 15.8 % (10.0-14.5); WHITE BLOOD COUNT 8.9 10^3/uL (4.3-11.0)
[2018-08-24] MEDS ORDERED: ONDANSETRON 4 MG/2 ML (SDV) Z0FRAN IVP ONE (04:15)
[2018-08-24] MEDS ORDERED: fentaNYL INJECTION 100 MCG/2 ML AMP IVP ONE (04:15)
[2018-08-24] MEDS ORDERED: KETOROLAC 30 MG/ML VIAL IVP ONE (04:15)
[2018-08-24 04:29] LABS: BILIRUBIN,URINE NEGATIVE (NEGATIVE); CLARITY,URINE SLIGHTLY CLOUDY; COLOR,URINE YELLOW; GLUCOSE, URINE (UA) NEGATIVE (NEGATIVE); KETONES,URINE NEGATIVE (NEGATIVE); LEUKOCYTE ESTERASE ,URINE NEGATIVE (NEGATIVE); NITRITE,URINE NEGATIVE (NEGATIVE); PH,URINE 7 (5-9); PROTEIN,URINE NEGATIVE (NEGATIVE); UROBILINOGEN,URINE NORMAL (NORMAL)
[2018-08-24 04:30] LABS: ALANINE AMINOTRANSFERASE 17 U/L (0-55); ALBUMIN 4.1 GM/DL (3.2-4.5); ALKALINE PHOSPHATASE 39 U/L (40-136); BILIRUBIN,TOTAL 0.4 MG/DL (0.1-1.0); BUN/CREATININE RATIO 11; CALCIUM 9.5 MG/DL (8.5-10.1); CARBON DIOXIDE 16 MMOL/L (21-32); CHLORIDE 109 MMOL/L (98-107); CREATININE SERUM 0.66 MG/DL (0.60-1.30); GFR ESTIMATED > 60; GLUCOSE 98 MG/DL (70-105); LIPASE 30 U/L (8-78); POTASSIUM 3.7 MMOL/L (3.6-5.0); SODIUM 137 MMOL/L (135-145); TOTAL PROTEIN 7.2 GM/DL (6.4-8.2)
[2018-08-24 04:48] LABS: BACTERIA,URINE TRACE /HPF; WBC,URINE RARE /HPF
[2018-08-24 04:50] LABS: AMPHETAMINE SCREEN, URINE NEGATIVE (NEGATIVE); BARBITURATE SCREEN URINE NEGATIVE (NEGATIVE); BENZODIAZEPINES SCREEN URINE NEGATIVE (NEGATIVE); CANNABINOID SCREEN, URINE NEGATIVE (NEGATIVE); COCAINE SCREEN URINE NEGATIVE (NEGATIVE); METHADONE STAT NEGATIVE (NEGATIVE); METHAMPHETAMINE SCREEN URINE S NEGATIVE (NEGATIVE); OPIATE SCREEN URINE NEGATIVE (NEGATIVE); OXYCODONE STAT NEGATIVE (NEGATIVE); PROPOXYPHENE STAT NEGATIVE (NEGATIVE); TRICYCLIC ANTIDEPRESSANTS SCRE NEGATIVE (NEGATIVE)
[2018-08-24 05:20] VITALS: BP 103/64
[2018-08-24] MEDS ORDERED: ONDA4TAB11 PO (05:21)
[2018-08-24] MEDS ORDERED: ACHD5005 PO (05:21)
[2018-08-24 05:33] VITALS: BP 103/64
--- NOTE | 2018-08-24 07:13 | Diagnostic Imaging Report ---
PROCEDURE: CT urinary tract, rule out kidney stone. TECHNIQUE: Multiple contiguous axial images were obtained through the abdomen and pelvis without the use of intravenous contrast. Auto Exposure Controls were utilized during the CT exam to meet ALARA standards for radiation dose reduction. INDICATION: Right flank pain x2 days. History of kidney stones. COMPARISON: 06/08/2018 FINDINGS: Included portions of the lung bases are clear. CT abdomen: Normal appendix is identified. Small bowel loops are nondistended. There is a moderate amount of air and stool scattered throughout the colon. Kidneys have an unremarkable noncontrast CT appearance, bilaterally. No renal or ureteral calculi are identified on either side. Additionally, there is no hydroureteronephrosis or other evidence of obstruction. The spleen, pancreas, adrenal glands, and liver have an unremarkable noncontrast CT appearance as well. There is no loculated fluid collection, free fluid, nor free air within the abdomen. No abnormal mesenteric or retroperitoneal adenopathy is seen. Indwelling IVC filter is noted. Bony structures show no acute abnormalities. CT pelvis: Urinary bladder is unopacified. No calculi are seen within the urinary bladder. Multiple pelvic phleboliths are noted. There is trace free fluid within the left adnexa. Filling defect is noted within the vagina. Intrauterine contraceptive device is also noted and appears to be in appropriate position. No abnormal pelvic adenopathy is seen. There is no loculated fluid collection or free air. Bony structures show no acute abnormalities. IMPRESSION: 1. Trace free fluid within the left adnexa; likely physiologic. 2. No other acute abnormalities are seen within the abdomen or pelvis. 3. Moderate colonic air and stool. Please correlate for constipation. Dictated by: Dictated on workstation # [id number]
== END 2018-08-24 05:35 | disposition home or self-care (01) ==
LOC: EDUNIT# 02:54 → ER 03:00
DX: N83.202 Unspecified ovarian cyst, left side (principal); J45.909 Unspecified asthma, uncomplicated; G43.909 Migraine, unspecified, not intractable, without status migrainosus; E11.40 Type 2 diabetes mellitus with diabetic neuropathy, unspecified; K58.9 Irritable bowel syndrome, unspecified; M41.9 Scoliosis, unspecified; F90.9 Attention-deficit hyperactivity disorder, unspecified type; F41.9 Anxiety disorder, unspecified; F43.10 Post-traumatic stress disorder, unspecified; F31.9 Bipolar disorder, unspecified; D64.9 Anemia, unspecified; Z91.5 Personal history of self-harm; Z87.19 Personal history of other diseases of the digestive system; Z82.49 Family history of ischemic heart disease and other diseases of the circulatory system; Z97.5 Presence of (intrauterine) contraceptive device; Z86.73 Personal history of transient ischemic attack (TIA), and cerebral infarction without residual deficits; Z86.718 Personal history of other venous thrombosis and embolism; Z88.0 Allergy status to penicillin; Z88.2 Allergy status to sulfonamides; Z91.040 Latex allergy status; Z87.442 Personal history of urinary calculi; Z98.51 Tubal ligation status; Z98.890 Other specified postprocedural states; Z95.828 Presence of other vascular implants and grafts; Z82.79 Family history of other congenital malformations, deformations and chromosomal abnormalities
CPT/HCPCS: 36415; 74176; 80053; 80306; 81000; 83690; 84703; 85025; 86141

== ENCOUNTER 2018-09-13 22:52 | Emergency (ER) | payer MEDICAID ==
[~2018-09-13] VITALS: Ht 154.9 cm; Wt 83.0 kg
[~2018-09-13 22:52] MED LIST changes: +ACHD5005 PO; +ONDA4TAB11 PO
--- NOTE | 2018-09-13 23:32 | NUR ---
pt here with " my worker". pt alert gcs 15. pt was referred here from [facility] for possible blood clot right leg. pt c/o pain right leg rating 5-10 worse with weight bearing. says pain is like " fire". pt also c/o dyspnea and no acute sighns of dyspnea noted. pt appears somewhat anxious. positive pulse right foot. pt has h/o blood clots and has ivc filter right leg already. pain started 1600 last noc and pt denies recent injury. lungs equal cta bilaterally. pt not on a blood thinner. done jeni pt [id number].
[2018-09-13] MEDS ORDERED: ENOXAPARIN 100 MG/1 ML (LOVENOX) SYR SC ONE (23:45)
--- NOTE | 2018-09-14 00:07 | NUR ---
yousuf chew for labs by me
--- NOTE | 2018-09-14 00:11 | NUR ---
labs to lab by me
[2018-09-14 00:20] LABS: BASOPHILS % (AUTO) 0 % (0-10); EOSINOPHILS # (AUTO) 0.2 10^3/uL (0.0-0.3); EOSINOPHILS % (AUTO) 2 % (0-10); HEMATOCRIT 38 % (35-52); HEMOGLOBIN 12.3 G/DL (11.5-16.0); LYMPHOCYTES # (AUTO) 3.1 X 10^3 (1.0-4.0); LYMPHOCYTES % (AUTO) 30 % (12-44); MEAN CORPUSCULAR HEMOGLOBIN 27 PG (25-34); MEAN CORPUSCULAR HGB CONC 32 G/DL (32-36); MEAN CORPUSCULAR VOLUME 83 FL (80-99); MEAN PLATELET VOLUME 9.8 FL (7.4-10.4); MONOCYTES # (AUTO) 0.6 X 10^3 (0.0-1.0); MONOCYTES % (AUTO) 5 % (0-12); NEUTROPHILS # (AUTO) 6.4 X 10^3 (1.8-7.8); NEUTROPHILS % (AUTO) 62 % (42-75); PLATELET COUNT 416 10^3/uL (130-400); RED CELL DISTRIBUTION WIDTH 17.1 % (10.0-14.5); WHITE BLOOD COUNT 10.3 10^3/uL (4.3-11.0)
[2018-09-14 00:32] LABS: INR 0.9 (0.8-1.4)
--- NOTE | 2018-09-14 00:42 | ED Lower Extremity ---
General Stated Complaint: R LEG PAIN Allergies and Home Medications Allergies Coded Allergies: latex (Verified Allergy, Severe, BLISTERS, 08/24/17) penicillin (Verified Allergy, Severe, ITCHING, 08/24/17) Sulfa (Sulfonamide Antibiotics) (Verified Allergy, Unknown, RASH, 08/24/17) Home Medications Gabapentin 300 Mg Capsule, 300 MG PO 0800,1200, (Reported) Gabapentin 300 Mg Capsule, 600 MG PO HS, (Reported) TAKES 2 (300MG) CAPSULES Hydrocodone Bit/Acetaminophen 1 Tab Tab, 1 EACH PO Q4-6HR PRN for PAIN-MODERATE Prescribed by: MAURIZIO THURMAN on 08/24/18520 Ondansetron 4 Mg Tab.rapdis, 4 MG PO Q6H PRN for NAUSEA/VOMITING Prescribed by: MAURIZIO THURMAN on 08/24/18520 Tramadol HCl 50 Mg Tablet, 50 MG PO Q4H Prescribed by: EMILY BURROUGHS MD on 07/23/18 1719 Past Plribfq-Niuyrm-Igteqo Hx Patient Social History Alcohol Beverage of Choice: Other Type Used: Cigarettes 2nd Hand Smoke Exposure: No Recent Foreign Travel: No Contact w/Someone Who Travel: No Recent Hopitalizations: No Immunizations Up To Date Tetanus Booster (TDap): Less than 5yrs PED Vaccines UTD: Yes Date of Pneumonia Vaccine: Feb 26, 2015 Date of Influenza Vaccine: Feb 17, 2018 Seasonal Allergies Seasonal Allergies: Yes Past Medical History Surgeries: Yes (ivc filter placed R femoral, R fasicotomy, loop recorder, r face surge, hem) Cardiac, Orthopedic, 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, Vascular Surgery Respiratory: Yes Asthma Currently Using CPAP: No Currently Using BIPAP: No Cardiac: Yes (PFO, ATRIAL SHUNT, BLOD CLOTS IN LEGS-IVC FILTER) Congenital Heart Disease, Deep Vein Thrombosis, Palpitations Neurological: Yes (HASNT HAD SEIZURE SINCE 2010 possible one 03/03/18, STROKE 2013) Headaches /Migraines, Neuropathy, Seizure Disorder, Stroke 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 Disorders: No 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, 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 Sexually Transmitted Disease: No HIV/AIDS: No Genitourinary: Yes Kidney Stones Gastrointestinal: Yes Colitis, Irritable Bowel Musculoskeletal: Yes (compartment syndrome ) Degenerate Disk Disease, Scoliosis, Chronic Back Pain, Fractures Endocrine: Yes (DIET CONTROLLED DIABETIC) Diabetes, Non-Insulin dep HEENT: Yes ("LEGALLY BLIND" ) Loss of Vision: Bilateral Hearing Impairment: Denies Cancer: No Psychosocial: Yes (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, DID) ADD/ADHD, Anxiety, PTSD, Suicide Attempts, Bipolar, Depression Integumentary: No Blood Disorders: No (hx anemia) Adverse Reaction/Blood Tranf: No (N/A) Family Medical History Antiphospholipid syndrome 19 MOTHER Diabetes mellitus 19 FATHER G8 BROTHER FH: aneurysm 19 FATHER FH: lupus 19 MOTHER FHx: congestive heart failure 19 FATHER FHx: renal failure 19 MOTHER Heart murmur 19 MOTHER Lupus anticoagulant disorder 19 MOTHER Patent foramen ovale 19 FATHER Barry syndrome G8 SISTER No Pertinent Family Hx Physical Exam Vital Signs Capillary Refill : Height, Weight, BMI Height: 5'4.00" Weight: 182lbs. 9.0oz. 82.997928vz; 42.6 BMI Method:Stated Progress/Results/Core Measures Results/Orders Lab Results Laboratory Tests Test 09/14/18 00:07 Range/Units White Blood Count 10.3 4.3-11.0 10^3/uL Red Blood Count 4.60 4.35-5.85 10^6/uL Hemoglobin 12.3 11.5-16.0 G/DL Hematocrit 38 35-52 % Mean Corpuscular Volume 83 80-99 FL Mean Corpuscular Hemoglobin 27 25-34 PG Mean Corpuscular Hemoglobin Concent 32 32-36 G/DL Red Cell Distribution Width 17.1 H 10.0-14.5 % Platelet Count 416 H 130-400 10^3/uL Mean Platelet Volume 9.8 7.4-10.4 FL Neutrophils (%) (Auto) 62 42-75 % Lymphocytes (%) (Auto) 30 12-44 % Monocytes (%) (Auto) 5 0-12 % Eosinophils (%) (Auto) 2 0-10 % Basophils (%) (Auto) 0 0-10 % Neutrophils # (Auto) 6.4 1.8-7.8 X 10^3 Lymphocytes # (Auto) 3.1 1.0-4.0 X 10^3 Monocytes # (Auto) 0.6 0.0-1.0 X 10^3 Eosinophils # (Auto) 0.2 0.0-0.3 10^3/uL Basophils # (Auto) 0.0 0.0-0.1 10^3/uL Prothrombin Time 13.0 12.2-14.7 SEC INR Comment 0.9 0.8-1.4 Activated Partial Thromboplast Time 34 24-35 SEC Sodium Level 137 135-145 MMOL/L Potassium Level 3.9 3.6-5.0 MMOL/L Chloride Level 107 98-107 MMOL/L Carbon Dioxide Level 18 L 21-32 MMOL/L Anion Gap 12 5-14 MMOL/L Blood Urea Nitrogen 8 7-18 MG/DL Creatinine 0.70 0.60-1.30 MG/DL Estimat Glomerular Filtration Rate > 60 BUN/Creatinine Ratio 11 Glucose Level 99 70-105 MG/DL Calcium Level 9.8 8.5-10.1 MG/DL Corrected Calcium 9.6 8.5-10.1 MG/DL Total Bilirubin 0.2 0.1-1.0 MG/DL Aspartate Amino Transf (AST/SGOT) 12 5-34 U/L Alanine Aminotransferase (ALT/SGPT) 13 0-55 U/L Alkaline Phosphatase 42 40-136 U/L Total Protein 7.8 6.4-8.2 GM/DL Albumin 4.3 3.2-4.5 GM/DL Serum Test, Qualitative NEGATIVE NEGATIVE My Orders Orders - JUAN GONZALEZ DO Cbc With Automated Diff (09/13/18 23:42) Comprehensive Metabolic Panel (09/13/18 23:42) Hcg,Qualitative Serum (09/13/18 23:42) Protime With Inr (09/13/18 23:42) Partial Thromboplastin Time (09/13/18 23:42) Troponin I (09/13/18 23:42) Enoxaparin Injection (Lovenox Injection) (09/13/18 23:45) Apixaban Tablet (Eliquis Tablet) (09/14/18 00:00) Apixaban Tablet (Eliquis Tablet) (09/14/18 09:00) Medications Given in ED Current Medications Medications Dose Ordered Sig/Diomedes Route Start Time Stop Time Status Last Admin Dose Admin Apixaban 10 mg ONCE ONCE PO 09/14/18 00:00 09/14/18 00:01 DC 09/14/18 00:14 10 MG Enoxaparin Sodium 100 mg ONCE ONCE SC 09/13/18 23:45 09/13/18 23:46 DC 09/14/18 00:09 100 MG Departure Impression Primary Impression: Right calf pain Additional Impression: Hx of deep venous thrombosis Disposition: HOME, SELF-CARE Condition: Stable Departure-Patient Inst. Referrals: HIEU YAP MD (PCP/Family) Primary Care Physician Patient Instructions: How to Prevent Blood Clots Add. Discharge Instructions: TAKE ELIQUIS DOSE IN THE MORNING CALL SCHEDULING AND ARRANGE FOR ULTRASOUND OF YOUR LEG TOMORROW TAKE YOUR OTHER MEDICATIONS PRESCRIBED FOLLOW UP WITH [facility] TOMORROW FOR FURTHER CARE JUAN GONZALEZ DO Sep 14, 2018 00:42
[2018-09-14 00:44] LABS: ALANINE AMINOTRANSFERASE 13 U/L (0-55); ALBUMIN 4.3 GM/DL (3.2-4.5); ALKALINE PHOSPHATASE 42 U/L (40-136); BILIRUBIN,TOTAL 0.2 MG/DL (0.1-1.0); BUN/CREATININE RATIO 11; CALCIUM 9.8 MG/DL (8.5-10.1); CARBON DIOXIDE 18 MMOL/L (21-32); CHLORIDE 107 MMOL/L (98-107); GFR ESTIMATED > 60; GLUCOSE 99 MG/DL (70-105); POTASSIUM 3.9 MMOL/L (3.6-5.0); SODIUM 137 MMOL/L (135-145); TOTAL PROTEIN 7.8 GM/DL (6.4-8.2)
[2018-09-14 01:21] VITALS: BP 129/80
--- NOTE | 2018-09-14 01:21 | NUR ---
d/c instructions to pt. told to read all papers. no scripts given. pt left ambulatory with worker. pt knows f/u. i went over the handtyped by information on the chart. pt had no iv. take home eliquis given. copy of order for outpt u/s given.
[2018-09-14] MEDS ORDERED: APIXABAN 5 MG (ELIQUIS) TABLET PO ONE ×2 (09:00)
== END 2018-09-14 01:21 | disposition home or self-care (01) ==
LOC: ER 22:53
DX: M79.661 Pain in right lower leg (principal); J45.909 Unspecified asthma, uncomplicated; Q24.9 Congenital malformation of heart, unspecified; G43.909 Migraine, unspecified, not intractable, without status migrainosus; G40.909 Epilepsy, unspecified, not intractable, without status epilepticus; E11.40 Type 2 diabetes mellitus with diabetic neuropathy, unspecified; K58.9 Irritable bowel syndrome, unspecified; M41.9 Scoliosis, unspecified; F90.9 Attention-deficit hyperactivity disorder, unspecified type; F41.9 Anxiety disorder, unspecified; D64.9 Anemia, unspecified; F43.10 Post-traumatic stress disorder, unspecified; F31.9 Bipolar disorder, unspecified; Z87.19 Personal history of other diseases of the digestive system; Z87.442 Personal history of urinary calculi; Z82.49 Family history of ischemic heart disease and other diseases of the circulatory system; Z91.5 Personal history of self-harm; Z97.5 Presence of (intrauterine) contraceptive device; Z86.73 Personal history of transient ischemic attack (TIA), and cerebral infarction without residual deficits; Z86.718 Personal history of other venous thrombosis and embolism; Z91.040 Latex allergy status; Z88.0 Allergy status to penicillin; Z88.2 Allergy status to sulfonamides; Z98.890 Other specified postprocedural states; Z98.51 Tubal ligation status; Z95.828 Presence of other vascular implants and grafts
CPT/HCPCS: 36415; 80053; 84484; 84703; 85025; 85610; 85730; 96372

== ENCOUNTER → 2018-09-14 | Outpatient (CLI) | payer MEDICAID ==
--- NOTE | 2018-09-14 10:51 | Diagnostic Imaging Report ---
PROCEDURE: US right lower extremity venous. INDICATION: Right leg pain EXAMINATION: Grayscale and color Doppler evaluation of the deep veins of the right lower extremity were performed with waveform analysis. FINDINGS: Continuous venous flow is present. No intraluminal filling defect is identified. There is normal compressibility and response to augmentation. No abnormal perivascular fluid collection is identified. IMPRESSION: No ultrasound evidence of right lower extremity deep venous thrombosis. Dictated by: Dictated on workstation # [id number]
== END ==
LOC: RAD 10:02
PROVIDERS: ATTEND Emergency Medicine
DX: M79.661 Pain in right lower leg (principal); Z86.718 Personal history of other venous thrombosis and embolism

== ENCOUNTER 2018-11-02 21:59 | Emergency (ER) | payer MEDICAID ==
[~2018-11-02] VITALS: Ht 162.6 cm; Wt 86.0 kg
--- NOTE | 2018-11-02 22:14 | ED Fall/Injury ---
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, AND FELL ONTO [place] FLOOR, LANDING ON HER LEFT SIDE AND WAS UNABLE TO GET UP STATES SHE HIT THE LEFT SIDE OF HER FACE, BUT NO LOSS OF CONSCIOUSNESS C/O PAIN TO LEFT HIP/GROIN AREA C/O PAIN TO LEFT ELBOW--LEFT WRIST IS IN A VELCRO AND LACE-UP SPLINT FROM PRIOR PROBLEM/INJURY NO VISION CHANGES NO PARESTHESIAS OR MOTOR DEFICITS NO DIZZINESS NO NAUSEA/VOMITING PT HAS HISTORY OF FREQUENT FALLS HAS HAD RIGHT LEG FX WITH COMPARTMENT SYNDROME AND SUBSEQUENT FASCIOTOMY IN THE PAST, WITH RIGHT FOOT DROP--NORMALLY WEARS A BOOT PT WITH HX OF CVA WITH MILD RESIDUAL RIGHT SIDE WEAKNESS--AMBULATES WITHOUT ANY ASSISTANCE, BUT DOES HAVE A WALKER AT HOME PT HAS BEEN ON BLOOD THINNERS, BUT STATES TODAY THAT HER TOOK HER OFF THEM A MONTH AGO --"SAID I DIDN'T NEED THEM ANYMORE"--( ON REVIEW OF ER RECORD FROM 09/13/18, PT HAD REPORTED AT THAT TIME THAT SHE WENT OFF XARELTO 8 MONTHS PRIOR, AND THAT SHE HAD STARTED ON OCP'S ) PT HAS BEEN PRESCRIBED MICROGESTIN, AND ALSO HAS IUD IN PLACE. PT WANTING PAIN MEDICATIONS SOON SHE ARRIVES, BUT DID NOT TAKE ANYTHING FOR PAIN AT HOME PT WITH LONG HISTORY OF ALCOHOLISM AND HAS BEEN PRESCRIBED A MULTITUDE OF NARCOTICS IN THE PAST, AND HAS OVERDOSED AND TRIED TO HANG HERSELF--MOST RECENTLY HERE FOR THAT 04/07/18 PER [facility], PT WAS LAST PRESCRIBED HYDROCODONE 08/24/18, TRAMADOL 07/27/18--HAS BEEN PRESCRIBED 33 CONTROLLED SUBSTANCES, BY 16 PROVIDERS AND FILLED AT 4 DIFFERENT PHARMACIES IN THE LAST YEAR. PCP: JAMAL-ASIM Allergies and Home Medications Allergies Coded Allergies: latex (Verified Allergy, Severe, BLISTERS, 08/24/17) penicillin (Verified Allergy, Severe, ITCHING, 08/24/17) Sulfa (Sulfonamide Antibiotics) (Verified Allergy, Unknown, RASH, 08/24/17) Home Medications Gabapentin 300 Mg Capsule, 300 MG PO 0800,1200, (Reported) Lurasidone HCl 60 Mg Tablet, 60 MG PO for ANXIETY, (Reported) Review of Systems Review of Systems Constitutional: no symptoms reported Musculoskeletal: see HPI, other (LEFT WRIST IN VELCRO AND LACE UP SLINT--STATES IS FROM A SCAPHOID FRACTURE 3 MONTHS AGO. ) Skin: no symptoms reported Psychiatric/Neurological: No Symptoms Reported, Pre-Existing Deficit (RIGHT SIDE WEAKNESS) Past Lbsfgwh-Jwuoad-Zgkiqd Hx Patient Social History Alcohol Beverage of Choice: Other Smoking Status: Current Everyday Smoker Type Used: Cigarettes 2nd Hand Smoke Exposure: No Recent Foreign Travel: No Contact w/Someone Who Travel: No Recent Hopitalizations: No Immunizations Up To Date Tetanus Booster (TDap): Less than 5yrs PED Vaccines UTD: Yes Date of Pneumonia Vaccine: Feb 26, 2015 Date of Influenza Vaccine: Feb 17, 2018 Seasonal Allergies Seasonal Allergies: Yes Past Medical History Surgeries: Yes (ivc filter placed R femoral, R fasicotomy, loop recorder, r face surge, hem) Cardiac, Orthopedic, 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, Vascular Surgery Respiratory: Yes Asthma Currently Using CPAP: No Currently Using BIPAP: No Cardiac: Yes (PFO, ATRIAL SHUNT, BLOD CLOTS IN LEGS-IVC FILTER) Congenital Heart Disease, Deep Vein Thrombosis, Palpitations Neurological: Yes (HASNT HAD SEIZURE SINCE 2010 possible one 03/03/18, STROKE 2013 WITH MILD RIGHT SIDE WEAKNESS) Headaches /Migraines, Neuropathy, Seizure Disorder, Stroke 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 Disorders: No 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: IUD, 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 Sexually Transmitted Disease: No HIV/AIDS: No Genitourinary: Yes Kidney Stones Gastrointestinal: Yes Colitis, Irritable Bowel Musculoskeletal: Yes (COMPARTMENT SYNDROME RIGHT LEG--S/P FASCIOTOMY ) Degenerate Disk Disease, Scoliosis, Chronic Back Pain, Fractures Endocrine: Yes (DIET CONTROLLED DIABETIC) Diabetes, Non-Insulin dep HEENT: Yes ("LEGALLY BLIND" ) Loss of Vision: Bilateral Hearing Impairment: Denies Cancer: No Psychosocial: Yes (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) ADD/ADHD, Anxiety, PTSD, Suicide Attempts, Bipolar, Depression Integumentary: No Blood Disorders: Yes (ANEMIA, DVT'S/CVA) Adverse Reaction/Blood Tranf: No (N/A) Family Medical History Antiphospholipid syndrome 19 MOTHER Diabetes mellitus 19 FATHER G8 BROTHER FH: aneurysm 19 FATHER FH: lupus 19 MOTHER FHx: congestive heart failure 19 FATHER FHx: renal failure 19 MOTHER Heart murmur 19 MOTHER Lupus anticoagulant disorder 19 MOTHER Patent foramen ovale 19 FATHER Barry syndrome G8 SISTER No Pertinent Family Hx Physical Exam Vital Signs Vital Signs - First Documented Capillary Refill : Height, Weight, BMI Height: 5'1.00" Weight: 183lbs. 9.0oz. 83.219793zb; 42.6 BMI Method:Stated Skin: normal color (PT IS BLACK), tattoos/piercings (EXTENSIVE TATTOOS), other (NO EXTERNAL EVIDENCE OF TRAUMA ANYWHERE) Progress/Results/Core Measures Results/Orders My Orders Orders - JUAN GONZALEZ DO Ct Head/Cervical Spine Wo (11/02/18 22:05) Elbow, Left, 3 Views (11/02/18 22:05) Pelvis With Left Hip 2-3 Views (11/02/18 22:05) Vital Signs/I&O 11/02/18 11/02/18 22:01 22:01 Temp 97.5 97.5 Pulse 90 90 Resp 18 18 B/P (MAP) 115/100 (105) 115/100 (105) Pulse Ox 100 100 Departure Impression Primary Impression: S/P FALL FROM STANDING Additional Impressions: Minor head injury without loss of consciousness Left elbow contusion Contusion of left hip Disposition: HOME, SELF-CARE Condition: Stable Departure-Patient Inst. Referrals: HIEU YAP MD (PCP/Family) Primary Care Physician Patient Instructions: Contusion (DC), Minor Head Injury (DC), Preventing Falls, Preventing Falls in the Older Adult Add. Discharge Instructions: ICE TO SORE AREAS AT 20 MINUTE INTERVALS USE YOUR WALKER AT ALL TIMES, UNTIL YOUR HIP IS BETTER FOLLOW UP WITH THE [facility] NEXT WEEK FOR FURTHER CARE All discharge instructions reviewed with patient and/or family. Voiced understanding. Scripts Cyclobenzaprine HCl (Cyclobenzaprine HCl) 10 Mg Tablet 10 MG PO Q8H, #15 TAB Prov: JUAN GONZALEZ DO 11/02/18 Meloxicam (Mobic) 15 Mg Tablet 15 MG PO DAILY, #10 TAB Prov: JUAN GONZALEZ DO 11/02/18 JUAN GONZALEZ DO Nov 02, 2018 22:14
[2018-11-02] MEDS ORDERED: LURA60TA2 PO (22:33)
[2018-11-02] MEDS: KETOROLAC 60 MG/2 ML VIAL IM ONE ×2 (23:25→23:35)
[2018-11-02] MEDS ORDERED: CYCL10TA9 PO (23:29)
[2018-11-02] MEDS ORDERED: MELO15TA14 PO (23:29)
[2018-11-02] MEDS ORDERED: CYCLOBENZAPRINE 10 MG (FLEXERIL) TAB PO SCH (23:30)
[2018-11-02 23:38] VITALS: BP 117/75
--- NOTE | 2018-11-03 05:26 | Diagnostic Imaging Report ---
INDICATION: Fall. COMPARISON: None. FINDINGS: 3 views of the left elbow show no fractures, dislocations, or other acute bony abnormalities identified. Joint spaces are well maintained throughout. The soft tissues appear unremarkable. No radiopaque foreign bodies are identified. IMPRESSION: No acute fractures or dislocations of the left elbow. Dictated by: Dictated on workstation # [id number]
--- NOTE | 2018-11-03 05:27 | Diagnostic Imaging Report ---
INDICATION: Fall. COMPARISON: None. FINDINGS: AP view of the pelvis and 2 dedicated radiographic views of the left hip were obtained. There is no fracture, dislocation, bone destruction, or radiopaque foreign body. The visualized pelvic osseous structures and the SI joints demonstrate no acute fracture or dislocation. There is no bone destruction or radiopaque foreign body. The surrounding soft tissue structures are unremarkable. Indwelling intrauterine contraceptive device is noted. IMPRESSION: 1. No acute fracture or dislocation in the pelvis or left hip. Dictated by: Dictated on workstation # [id number]
--- NOTE | 2018-11-03 06:55 | Diagnostic Imaging Report ---
PROCEDURE: CT head and CT cervical spine without contrast. TECHNIQUE: Multiple contiguous axial images were obtained through the brain and cervical spine without the use of intravenous contrast. Sagittal and coronal reformations through the cervical spine were then performed. Auto Exposure Controls were utilized during the CT exam to meet ALARA standards for radiation dose reduction. INDICATION: Fall. Findings: Comparison is 06/08/2018. CT head: The matthew-white matter differentiation is normal. No intracranial hemorrhage is seen. No intra-or extra-axial fluid collections. The ventricles are normal in size. Basilar cisterns are patent. No intra-or extra-axial fluid collections. Posterior fossa is normal. Orbits are normal. No cranial fractures are seen. No osseous lesions are seen. Paranasal sinuses are normal. CT cervical spine: The alignment of the cervical spine is normal. Facet joint alignment is normal. Craniocervical junction is normal. No fractures are seen. Disc spaces are normal. Vertebral body heights are normal. No prevertebral soft tissue swelling is seen. No soft tissue abnormality is present in the neck. Impression: 1. No acute intracranial abnormality. 2.No fracture in the cervical spine. Dictated by: Dictated on workstation # [id number]
== END 2018-11-02 23:38 | disposition home or self-care (01) ==
LOC: EDUNIT# 21:59 → ER 22:00
DX: S09.90XA Unspecified injury of head, initial encounter (principal); S50.02XA Contusion of left elbow, initial encounter; S70.02XA Contusion of left hip, initial encounter; J45.909 Unspecified asthma, uncomplicated; F10.20 Alcohol dependence, uncomplicated; G40.909 Epilepsy, unspecified, not intractable, without status epilepticus; G43.909 Migraine, unspecified, not intractable, without status migrainosus; F17.210 Nicotine dependence, cigarettes, uncomplicated; Q24.9 Congenital malformation of heart, unspecified; E11.40 Type 2 diabetes mellitus with diabetic neuropathy, unspecified; K58.9 Irritable bowel syndrome, unspecified; F90.9 Attention-deficit hyperactivity disorder, unspecified type; F31.9 Bipolar disorder, unspecified; F43.10 Post-traumatic stress disorder, unspecified; Z87.19 Personal history of other diseases of the digestive system; Z87.442 Personal history of urinary calculi; Z91.040 Latex allergy status; Z88.0 Allergy status to penicillin; Z88.2 Allergy status to sulfonamides; Z86.73 Personal history of transient ischemic attack (TIA), and cerebral infarction without residual deficits; Z79.01 Long term (current) use of anticoagulants; Z98.51 Tubal ligation status; W01.0XXA Fall on same level from slipping, tripping and stumbling without subsequent striking against object, initial encounter; Y92.009 Unspecified place in unspecified non-institutional (private) residence as the place of occurrence of the external cause
CPT/HCPCS: 70450; 72125; 73080; 96372

== ENCOUNTER → 2018-12-14 | Outpatient (CLI) | payer MEDICAID ==
[~2018-12-14] MED LIST changes: +MELO15TA14 PO; -OMEP10CA4 PO; +OMEP10CA5 PO; -OMEP20CA12 PO; +OMEP20CA13 PO
--- NOTE | 2018-12-14 15:57 | Diagnostic Imaging Report ---
PROCEDURE: MRI left upper extremity without contrast. TECHNIQUE: Multiplanar, multisequence [id number]-hmstflgi MRI of the left upper extremity was accomplished. INDICATION: Nondisplaced fracture of the left wrist. COMPARISON: 08/03/2018. FINDINGS: There is motion artifact on multiple sequences. No acute fracture is seen in the left wrist. Alignment appears normal. No cortical erosions are seen. The scapholunate and lunotriquetral ligaments appear intact. The triangular fibrocartilage appears intact. The visible extrinsic ligaments are unremarkable. The flexor and extensor tendons are intact. No increased fluid is seen in the tendon sheaths. The median nerve and the ulnar nerve are unremarkable about the wrist. There is no muscular atrophy or focal edema. No soft tissue masses or fluid collections are seen. IMPRESSION: 1. Motion artifact on multiple sequences. No fracture is seen in the left wrist. No ligament or tendon injury is seen. Dictated by: Dictated on workstation # [id number]
== END ==
LOC: RAD 12-05 08:15
PROVIDERS: ATTEND Nurse Practitioner
DX: S62.025A Nondisplaced fracture of middle third of navicular [scaphoid] bone of left wrist, initial encounter for closed fracture (principal)
CPT/HCPCS: 73221

== ENCOUNTER 2019-01-16 18:23 | Emergency (ER) | payer MEDICAID ==
[~2019-01-16] VITALS: Ht 154 cm; Wt 92.0 kg
[2019-01-16 19:12] LABS: BASOPHILS % (AUTO) 0 % (0-10); EOSINOPHILS # (AUTO) 0.2 10^3/uL (0.0-0.3); EOSINOPHILS % (AUTO) 2 % (0-10); HEMATOCRIT 41 % (35-52); HEMOGLOBIN 13.3 G/DL (11.5-16.0); LYMPHOCYTES % (AUTO) 44 % (12-44); MEAN CORPUSCULAR HEMOGLOBIN 27 PG (25-34); MEAN CORPUSCULAR HGB CONC 33 G/DL (32-36); MEAN CORPUSCULAR VOLUME 82 FL (80-99); MEAN PLATELET VOLUME 9.8 FL (7.4-10.4); MONOCYTES # (AUTO) 0.5 X 10^3 (0.0-1.0); MONOCYTES % (AUTO) 5 % (0-12); NEUTROPHILS # (AUTO) 4.4 X 10^3 (1.8-7.8); NEUTROPHILS % (AUTO) 49 % (42-75); PLATELET COUNT 429 10^3/uL (130-400); RED CELL DISTRIBUTION WIDTH 17.1 % (10.0-14.5)
[2019-01-16 19:18] LABS: BILIRUBIN,URINE NEGATIVE (NEGATIVE); CLARITY,URINE CLEAR; COLOR,URINE YELLOW; GLUCOSE, URINE (UA) NEGATIVE (NEGATIVE); KETONES,URINE 4+ (NEGATIVE); LEUKOCYTE ESTERASE ,URINE 2+ (NEGATIVE); NITRITE,URINE NEGATIVE (NEGATIVE); PH,URINE 5 (5-9); PROTEIN,URINE 1+ (NEGATIVE); UROBILINOGEN,URINE NORMAL (NORMAL)
[2019-01-16 19:24] LABS: INR 1.1 (0.8-1.4); PROTHROMBIN TIME PATIENT 14.2 SEC (12.2-14.7)
[2019-01-16 19:29] LABS: AMPHETAMINE SCREEN, URINE NEGATIVE (NEGATIVE); BARBITURATE SCREEN URINE NEGATIVE (NEGATIVE); BENZODIAZEPINES SCREEN URINE NEGATIVE (NEGATIVE); CANNABINOID SCREEN, URINE NEGATIVE (NEGATIVE); COCAINE SCREEN URINE NEGATIVE (NEGATIVE); METHADONE STAT NEGATIVE (NEGATIVE); METHAMPHETAMINE SCREEN URINE S NEGATIVE (NEGATIVE); OPIATE SCREEN URINE NEGATIVE (NEGATIVE); OXYCODONE STAT NEGATIVE (NEGATIVE); PROPOXYPHENE STAT NEGATIVE (NEGATIVE); TRICYCLIC ANTIDEPRESSANTS SCRE NEGATIVE (NEGATIVE)
[2019-01-16 19:30] LABS: ALANINE AMINOTRANSFERASE 17 U/L (0-55); ALBUMIN 4.8 GM/DL (3.2-4.5); ALKALINE PHOSPHATASE 53 U/L (40-136); BILIRUBIN,TOTAL 0.4 MG/DL (0.1-1.0); BUN/CREATININE RATIO 8; CALCIUM 10.3 MG/DL (8.5-10.1); CARBON DIOXIDE 21 MMOL/L (21-32); CHLORIDE 105 MMOL/L (98-107); CREATINE KINASE 185 U/L (29-168); CREATININE SERUM 0.83 MG/DL (0.60-1.30); GFR ESTIMATED > 60; GLUCOSE 84 MG/DL (70-105); POTASSIUM 3.9 MMOL/L (3.6-5.0); SODIUM 141 MMOL/L (135-145); TOTAL PROTEIN 8.6 GM/DL (6.4-8.2)
[2019-01-16 19:32] LABS: BACTERIA,URINE MODERATE /HPF; WBC,URINE 25-50 /HPF
[2019-01-16 19:33] LABS: ERYTHROCYTE SEDIMENTATION RATE 18 MM/HR (0-20)
[2019-01-16 19:49] LABS: CREATINE KINASE MB 0.5 NG/ML (<6.6); TSH (THYROID ANALYZER) 0.66 UIU/ML (0.35-4.94)
--- NOTE | 2019-01-16 19:49 | Diagnostic Imaging Report ---
INDICATION: Tingling in left side of head with arm pain and tingling. EXAM: Noncontrast brain CT is performed. COMPARISON: 11/02/2018. FINDINGS: There were no extra-axial fluid collections. No intracranial hemorrhage. No intra-cranial mass or mass effect. No midline shift. The ventricles are normal in size and position. There were no focal parenchymal abnormalities in the brain. Calvarial windows are normal. IMPRESSION: Negative noncontrast brain CT. No change from 11/02/2018. Dictated by: Dictated on workstation # [id number]
--- NOTE | 2019-01-16 20:06 | Diagnostic Imaging Report ---
INDICATION: Dizziness and right-sided chest and jaw pain. PA and lateral chest obtained at 07:51 p.m. Heart and mediastinal silhouette are normal in appearance. The lungs are clear. There is no pneumothorax or pleural fluid. IMPRESSION: Negative chest. Dictated by: Dictated on workstation # [id number]
[2019-01-16] MEDS ORDERED: ACETAMINOPHEN 500 MG TAB (TYLENOL) PO ONE (20:15)
[2019-01-16] MEDS ORDERED: NS 100 ML (IVPB) BAG IV ONE (20:15)
[2019-01-16] MEDS ORDERED: IOHEXOL 350 MG/ML 100 ML (OMNIPAQUE 350) VIAL IV ONE (20:15)
[2019-01-16] MEDS ORDERED: HOLD METFORMIN - RECEIVED CONTRAST 20 ML VIAL IV SCH (20:15)
--- NOTE | 2019-01-16 20:30 | NUR ---
Pt unable to take tylenol due to failing dysphagia screen. Pt unable to swallow water. Pt now reports seeing purple and green. Dr. Erickson notified.
--- NOTE | 2019-01-16 20:42 | Diagnostic Imaging Report ---
INDICATION: Left-sided headache and tingling. EXAM: CTA Head and Neck obtained with IV contrast bolus and axial slices, sagittal, coronal and MIP reconstructions. CTA NECK FINDINGS: The thoracic aortic arch is patent and normal in caliber and appearance. The great vessel origins are patent and appear unremarkable. The common carotid arteries, carotid bifurcations, internal carotid arteries, and external carotid arteries are patent with no focal abnormality. The vertebral arteries on both sides are patent and are codominant. There is no soft tissue mass in the neck region. CTA HEAD FINDINGS: The distal vertebral arteries, basilar artery, and posterior cerebral arteries appear patent. The distal internal carotid arteries, anterior cerebral arteries, and middle cerebral arteries appear patent. There is no major vessel stenosis or occlusion. There is no overt aneurysmal disease. IMPRESSION: Unremarkable CTA of the head and neck. Dictated by: Dictated on workstation # [id number]
[2019-01-16] MEDS ORDERED: ORPHENADRINE 60 MG/2 ML (NORFLEX) AMP IV ONE (21:15)
[2019-01-16] MEDS ORDERED: KETOROLAC 30 MG/ML VIAL IVP ONE (21:15)
[2019-01-16] MEDS ORDERED: diphenhydrAMINE 50 MG/ML INJ (BENADRYL) IVP ONE (21:15)
[2019-01-16] MEDS ORDERED: methylPREDNISolone 125 MG (Solu-MEDROL) VIAL IVP ONE (21:15)
[2019-01-16] MEDS ORDERED: cefTRIAXone FOR IV USE 1,000 MG in WATER (STERILE) FOR INJECTION 10 ML IV ONE (21:15)
--- NOTE | 2019-01-16 21:32 | ED General ---
General Chief Complaint: Neuro-Stroke Like Symptoms Stated Complaint: LEFT SIDE HURTING Nursing Triage Note: ARRIVED VIA AMB TO TRIAGE WITH COMPLAINTS OF WAKING UP WITH LEFT JAW PAIN AND PAIN DOWN LEFT SIDE OF FACE AND SHOULDER. TALKED TO NURSE ON THE PHONE AND WAS TOLD TO COME TO ER DUE TO HX OF STROKES. Nursing Sepsis Screen: No Definite Risk Source of Information: Patient, Old Records History of Present Illness Date Seen by Provider: Jan 16, 2019 Time Seen by Provider: 18:43 Initial Comments PT ARRIVES VIA POV STATES SHE WAS LAYING DOWN AND STATES SHE "GOT HIT WITH PAIN" TO ENTIRE LEFT SIDE OF FACE, LEFT JAW, ENTIRE HEAD HURTS/GLOBAL HEADACHE PAIN RADIATES DOWN LEFT LATERAL NECK DOWN TO LEFT SHOULDER, DOWN LEFT CHEST AND AROUND LEFT CHEST TO LEFT SIDE AND ARMPIT AREA, AND INTO LEFT UPPER BACK. NO PROBLEMS SWALLOWING OR HANDLING SECRETIONS NO PARESTHESIAS OR MOTOR DEFICITS NO SHORTNESS OF BREATH NO PALPITATIONS NO SWELLING ANYWHERE TOOK MOTRIN WITHOUT RELIEF. NO FEVER OR RECENT ILLNESS NO SORE THROAT NO EAR PAIN NO DENTAL PAIN NO RASH PT HAS HISTORY OF PRIOR CVA WITH RIGHT SIDE WEAKNESS IN 2013 HX OF DVT'S AND PFO WITH ATRIAL SHUNT--NO SURGERY FOR CARDIAC DEFECT PT HAS BEEN ON XARELTO, BUT QUIT TAKING IT MONTHS AGO. PT WITH MULTITUDE OF VISITS--VARIOUS COMPLAINTS SEE OLD CHARTS FOR DETAILS PT HAS A VERY EXTENSIVE HISTORY OF ALCOHOLISM AND EXCESSIVE NARCOTIC USE, WITH OVERDOSES AND SUICIDE ATTEMPTS ON THE PAST PT ALSO HAS A LONG HISTORY OF NON-COMPLIANCE IN ALL ASPECTS OF CARE PT STATES SHE HAS NOT TAKEN ANY OF HER MEDICATIONS TODAY PT HAS LONG HISTORY OF CHRONIC HEADACHES, CHRONIC NECK AND BACK PAIN PCP: [facility] [place] Allergies and Home Medications Allergies Coded Allergies: latex (Verified Allergy, Severe, BLISTERS, 08/24/17) penicillin (Verified Allergy, Severe, ITCHING, 08/24/17) Sulfa (Sulfonamide Antibiotics) (Verified Allergy, Unknown, RASH, 08/24/17) Home Medications Cyclobenzaprine HCl 10 Mg Tablet, 10 MG PO Q8H Prescribed by: JUAN GONZALEZ on 11/02/182328 Gabapentin 300 Mg Capsule, 300 MG PO 0800,1200, (Reported) Lurasidone HCl 60 Mg Tablet, 60 MG PO for ANXIETY, (Reported) Meloxicam 15 Mg Tablet, 15 MG PO DAILY Prescribed by: JUAN GONZALEZ on 11/02/182328 Meloxicam 15 Mg Tablet, 15 MG PO DAILY Prescribed by: JUAN GONZALEZ on 01/16/192257 Tizanidine HCl 4 Mg Capsule, 4 MG PO TID Prescribed by: JUAN GONZALEZ on 01/16/192257 Patient Home Medication List Home Medication List Reviewed: Yes Review of Systems Review of Systems Constitutional: no symptoms reported; No chills, No fever EENTM: see HPI Respiratory: no symptoms reported Cardiovascular: see HPI Gastrointestinal: no symptoms reported; No nausea, No vomiting Genitourinary: no symptoms reported Musculoskeletal: see HPI Skin: no symptoms reported; No rash Psychiatric/Neurological: See HPI; Denies Numbness, Denies Paresthesia, Denies Weakness Past [id number] Hx Past Med/Social Hx: Reviewed and Corrections made Patient Social History Alcohol Use: Occasionally Uses (LONG HISTORY OF ALCOHOLISM, NOW "OCCASIONALLY" DRINKS--HEAVY AT TIMES. ) Alcohol Beverage of Choice: Vodka, Other Recreational Drug Use: Yes (CHRONIC OPIATE USE/ABUSE AND INTENTIONAL OVERDOSES) Drug of Choice: CHRONIC OPIATE USE/ABUSE AND OVERDOSES Smoking Status: Current Everyday Smoker (1 PPD) Type Used: Cigarettes (1 PPD) 2nd Hand Smoke Exposure: No Recent Foreign Travel: No Contact w/Someone Who Travel: No Recent Infectious Disease Expo: No Recent Hopitalizations: No Immunizations Up To Date Tetanus Booster (TDap): Less than 5yrs PED Vaccines UTD: Yes Date of Pneumonia Vaccine: Feb 26, 2015 Date of Influenza Vaccine: Feb 17, 2018 Seasonal Allergies Seasonal Allergies: Yes Past Medical History Surgeries: Yes (LEFT FACIAL/ORBITAL FX AND REPAIR 03/2018; RIGHT TIB-FIB FX/ORIF WITH FASCIOTOMY AND MULTIPLE SURGERIES FOR COMPARTMENT SYNDROME; VENA CAVA FILTER; LOOP RECORDER PLACED 08/2017 FOR PALPITATIONS; COLONOSCOPY 08/2017) Cardiac, Orthopedic, 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, Vascular Surgery Respiratory: Yes Asthma Currently Using CPAP: No Currently Using BIPAP: No Cardiac: Yes (PFO AND ATRIAL SHUNT--NO REPAIR; DVT RIGHT LEG POST OP FROM RIGHT TIB-FIB FX/ORIF/FASCIOTOMY; VENA CAVA FILTER; LOOP RECORDER 08/2017 FOR PALPITATIONS) Congenital Heart Disease, Deep Vein Thrombosis, High Cholesterol, Palpitations Neurological: Yes (NO SEIZURE SINCE 2010--QUESTIONABLE SEIZURE 03/03/18; STROKE 2013 WITH MILD RIGHT SIDED WEAKNESS; POST OP/ POST TRAUMA DVT OF RIGHT LEG CAUSED CVA, ALSO FOUND TO HAVE PFO AND ATRIAL SHUNT AT THAT TIME. 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 History: IUD, 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 Sexually Transmitted Disease: No HIV/AIDS: No Genitourinary: Yes Kidney Stones Gastrointestinal: Yes Colitis, Gastroesophageal Reflux, Hemorrhoids, Irritable Bowel Musculoskeletal: Yes (RIGHT TIB-FIB FX/ORIF WITH COMPARTMENT SYNDROME WITH FASCIOTOMY AND MULTIPLE SURGERIES--12 PWE PT; RIGHT FOOT DROP--WEARS RIGHT FOOT BRACE SOMETIMES, SOMETIMES USES A WALKER; CHRONIC RIGHT LEG PAIN; CHRONIC NECK AND BACK PAIN; FREQUENT FALLS; LEFT SCAPHOID FRACTURE-NO SURGERY; CHRONIC OPIATE USE/ABUSE/OVERDOSES) Degenerate Disk Disease, Foot Drop, Scoliosis, Chronic Back Pain, Fractures Endocrine: Yes (DIET CONTROLLED DIABETIC) Diabetes, Non-Insulin dep HEENT: Yes ("LEGALLY BLIND" ; LEFT FACIAL/ORBITAL FRACTURE REPAIRED 03/2018) Loss of Vision: Bilateral Hearing Impairment: Denies Cancer: No Psychosocial: Yes (MULTIPLE SUICIDE ATTEMPTS--MULTIPLE OVERDOSES; LAST ATTEMPT 03/2018--OVERDOSED ON SEROQUEL + TYLENOL AND THEN TRIED TO HANG HERSEF. ALSO 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 IN PAST. ) ADD/ADHD, Anxiety, PTSD, Suicide Attempts, Bipolar, Depression Integumentary: Yes Herpes Blood Disorders: Yes (ANEMIA, DVT'S/CVA) Adverse Reaction/Blood Tranf: No (N/A) Family Medical History Antiphospholipid syndrome 19 MOTHER Diabetes mellitus 19 FATHER G8 BROTHER FH: aneurysm 19 FATHER FH: lupus 19 MOTHER FHx: congestive heart failure 19 FATHER FHx: renal failure 19 MOTHER Heart murmur 19 MOTHER Lupus anticoagulant disorder 19 MOTHER Patent foramen ovale 19 FATHER Barry syndrome G8 SISTER No Pertinent Family Hx Physical Exam Vital Signs Vital Signs - First Documented 01/16/19 18:33 Temp 37.0 Pulse 109 Resp 16 B/P (MAP) 125/87 (100) Pulse Ox 100 O2 Delivery Room Air Capillary Refill : Less Than 3 Seconds Height, Weight, BMI Height: 5'4.00" Weight: 189lbs. 9.0oz. 85.574384jn; 38.00 BMI Method:Stated General Appearance: No Apparent Distress, WD/WN HEENT: PERRL/EOMI, TMs Normal, Other (PT HOLDING JAWS/TEETH CLENCHED AND HOLDING LEFT SIDE OF FACE STIFF--MOUTH APPEARS TO SLIGHTLY DROOP. REFUSES TO ATTEMPT TO OPEN MOUTH ON EXAM, YET IS ABLE TO OPEN MOUTH AND TALK NORMALLY WHEN NOT BEING EXAMINED OR WHEN DISTRACTED. TENDERNESS TO LEFT LOWER CHIN. NO DISCRETE TMJ TENDERNESS. NO SWELLING TO FACE. ON LATER OBSERVARTION/FULL CRANIAL AND FACIALNERVE EXAM, PT DOES NOT HAVE FACIAL DROOP AT ALL, OR ANY FACIA L ABNORMALITIES. ) Neck: Full Range of Motion (FULL ROM WHEN NOT BEING EXAMINED, BUT ON EXAM THE PT HOLDS HER HEAD AND LEFT SIDE OF FACE AND NECK/TRAPEZIUS AREA VERY STIFFLY. TENDERNESS DIRECTLY OVER LEFT LATERAL NECK AND TRAPEZIUS MUSCLES. ) Respiratory: Normal Breath Sounds, No Accessory Muscle Use, No Respiratory Distress, Other (LEFT UPPER CHEST TENDERNESS) Cardiovascular: Regular Rate, Rhythm, No Edema, No JVD, No Murmur, Normal Peripheral Pulses Gastrointestinal: Normal Bowel Sounds, No Organomegaly, No Pulsatile Mass, Non Tender, Soft Back: Normal Inspection, No CVA Tenderness, No Vertebral Tenderness Extremity: Normal Capillary Refill, Normal Range of Motion, Non Tender, No Calf Tenderness, No Pedal Edema, Other (POST OP CHANGES TO RIGHT LOWER LEG WITH RIGHT FOOT DROP) Neurologic/Psychiatric: Alert, Oriented x3, No Motor/Sensory Deficits, roll scale worker II- XII Norm as Tested, Other ( ABOVE. MINIMAL RIGHT SIDED WEAKNESS--NORMAL FOR PT POST CVA IN 2014) Skin: Normal Color (PT IS BLACK), Tattoos/Piercings (EXTENSIVE TATTOOS AND MULTIPLE PIERCINGS, INCLUDING LEFT LOWER LOP. NO SIGNS OF INFECTION) Progress/Results/Core Measures Suspected Sepsis Recent Fever Within 48 Hours: No Infection Criteria Present: None New/Unexplained Altered Menta: No Sepsis Screen: No Definite Risk SIRS Temperature: Pulse: 109 Respiratory Rate: 16 Laboratory Tests 01/16/19 19:00: White Blood Count 9.0 Blood Pressure 125 /87 Mean: 100 Laboratory Tests 01/16/19 19:00: Creatinine 0.83, INR Comment 1.1, Platelet Count 429H, Total Bilirubin 0.4 Results/Orders Lab Results Laboratory Tests Test 01/16/19 19:00 01/16/19 19:06 01/16/19 19:10 10/8/19 21:30 Range/Units White Blood Count 9.0 4.3-11.0 10^3/uL Red Blood Count 4.97 4.35-5.85 10^6/uL Hemoglobin 13.3 11.5-16.0 G/DL Hematocrit 41 35-52 % Mean Corpuscular Volume 82 80-99 FL Mean Corpuscular Hemoglobin 27 25-34 PG Mean Corpuscular Hemoglobin Concent 33 32-36 G/DL Red Cell Distribution Width 17.1 H 10.0-14.5 % Platelet Count 429 H 130-400 10^3/uL Mean Platelet Volume 9.8 7.4-10.4 FL Neutrophils (%) (Auto) 49 42-75 % Lymphocytes (%) (Auto) 44 12-44 % Monocytes (%) (Auto) 5 0-12 % Eosinophils (%) (Auto) 2 0-10 % Basophils (%) (Auto) 0 0-10 % Neutrophils # (Auto) 4.4 1.8-7.8 X 10^3 Lymphocytes # (Auto) 4.0 1.0-4.0 X 10^3 Monocytes # (Auto) 0.5 0.0-1.0 X 10^3 Eosinophils # (Auto) 0.2 0.0-0.3 10^3/uL Basophils # (Auto) 0.0 0.0-0.1 10^3/uL Erythrocyte Sedimentation Rate 18 0-20 MM/HR Prothrombin Time 14.2 12.2-14.7 SEC INR Comment 1.1 0.8-1.4 Activated Partial Thromboplast Time 39 H 24-35 SEC Sodium Level 141 135-145 MMOL/L Potassium Level 3.9 3.6-5.0 MMOL/L Chloride Level 105 98-107 MMOL/L Carbon Dioxide Level 21 21-32 MMOL/L Anion Gap 15 H 5-14 MMOL/L Blood Urea Nitrogen 7 7-18 MG/DL Creatinine 0.83 0.60-1.30 MG/DL Estimat Glomerular Filtration Rate > 60 BUN/Creatinine Ratio 8 Glucose Level 84 70-105 MG/DL Calcium Level 10.3 H 8.5-10.1 MG/DL Corrected Calcium 8.5-10.1 MG/DL Magnesium Level 2.0 1.6-2.4 MG/DL Total Bilirubin 0.4 0.1-1.0 MG/DL Aspartate Amino Transf (AST/SGOT) 14 5-34 U/L Alanine Aminotransferase (ALT/SGPT) 17 0-55 U/L Alkaline Phosphatase 53 40-136 U/L Total Creatine Kinase 185 H 29-168 U/L Creatine Kinase MB 0.5 <6.6 NG/ML Myoglobin 25.9 10.0-92.0 NG/ML Troponin I < 0.028 < 0.028 <0.028 NG/ML B-Type Natriuretic Peptide < 10.0 <100.0 PG/ML Total Protein 8.6 H 6.4-8.2 GM/DL Albumin 4.8 H 3.2-4.5 GM/DL TSH [place] Testing 0.66 0.35-4.94 UIU/ML Serum Test, Qualitative NEGATIVE NEGATIVE Serum Alcohol < 10 <10 MG/DL Urine Color YELLOW Urine Clarity CLEAR Urine pH 5 5-9 Urine Specific [place] 1.025 H 1.016-1.022 Urine Protein 1+ H NEGATIVE Urine Glucose (UA) NEGATIVE NEGATIVE Urine Ketones 4+ H NEGATIVE Urine Nitrite NEGATIVE NEGATIVE Urine Bilirubin NEGATIVE NEGATIVE Urine Urobilinogen NORMAL NORMAL MG/DL Urine Leukocyte Esterase 2+ H NEGATIVE Urine RBC (Auto) 5+ H NEGATIVE Urine RBC 2-5 H /HPF Urine WBC 25-50 H /HPF Urine Squamous Epithelial Cells 2-5 /HPF Urine Crystals NONE /LPF Urine Bacteria MODERATE H /HPF Urine Casts NONE /LPF Urine Mucus NEGATIVE /LPF Urine Culture Indicated YES Urine Opiates Screen NEGATIVE NEGATIVE Urine Oxycodone Screen NEGATIVE NEGATIVE Urine Methadone Screen NEGATIVE NEGATIVE Urine Propoxyphene Screen NEGATIVE NEGATIVE Urine Barbiturates Screen NEGATIVE NEGATIVE Ur Tricyclic Antidepressants Screen NEGATIVE NEGATIVE Urine Phencyclidine Screen NEGATIVE NEGATIVE Urine Amphetamines Screen NEGATIVE NEGATIVE Urine Methamphetamines Screen NEGATIVE NEGATIVE Urine Benzodiazepines Screen NEGATIVE NEGATIVE Urine Cocaine Screen NEGATIVE NEGATIVE Urine Cannabinoids Screen NEGATIVE NEGATIVE Glucometer 82 70-110 MG/DL My Orders Orders - JUAN GONZALEZ DO Accucheck Stat ONCE (01/16/19 18:49) Ed Iv/Invasive Line Start (01/16/19 18:49) Ekg Tracing (01/16/19 18:49) Monitor-Rhythm Ecg Trace Only (01/16/19 18:49) Ct Head Wo-R/O Stroke (01/16/19 18:49) Chest Pa/Lat (2 View) (01/16/19 18:49) Alcohol (01/16/19 18:49) BNP (01/16/19 18:49) Cbc With Automated Diff (01/16/19 18:49) Comprehensive Metabolic Panel (01/16/19 18:49) Creatine Kinase (01/16/19 18:49) Creatine Kinase Mb (01/16/19 18:49) Drug Screen Stat (Urine) (01/16/19 18:49) Hcg,Qualitative Serum (01/16/19 18:49) Magnesium (01/16/19 18:49) Protime With Inr (01/16/19 18:49) Partial Thromboplastin Time (01/16/19 18:49) Thyroid Analyzer (01/16/19 18:49) Ua Culture If Indicated (01/16/19 18:49) Erythrocyte Sedimentation Rate (01/16/19 18:49) Myoglobin Serum (01/16/19 18:49) Troponin I (01/16/19 18:49) Urine Culture (01/16/19 19:06) Ct Angio Head/Neck (01/16/19 19:52) Iohexol Injection (Omnipaque 350 Mg/Ml 1 (01/16/19 20:15) Received Contrast (Hold Metformin- Contr (01/16/19 20:15) Ns (Ivpb) (Sodium Chloride 0.9% Ivpb Bag (01/16/19 20:15) Acetaminophen Tablet (Tylenol Tablet) (01/16/19 20:15) Ceftriaxone For Iv Use (Rocephin For I (01/16/19 21:15) Ketorolac Injection (Toradol Injection) (01/16/19 21:15) Orphenadrine Injection (Norflex Injectio (01/16/19 21:15) Diphenhydramine Injection (Benadryl Inje (01/16/19 21:15) Methylprednisolone Sod Succ (Solu-Medrol (01/16/19 21:15) Troponin I (01/16/19 21:30) Ekg Tracing (01/16/19 21:30) Rx-Cyclobenzaprine Tablet (Rx-Flexeril T (01/16/19 22:54) Rx-Naproxen (Rx-Naprosyn) (01/16/19 22:54) Medications Given in ED Current Medications Medications Dose Ordered Sig/Diomedes Route Start Time Stop Time Status Last Admin Dose Admin Ceftriaxone Sodium 1000 mg/ Sterile Water 10 ml @ 200 mls/hr ONCE ONCE IV 01/16/19 21:15 01/16/19 21:17 DC 01/16/19 22:10 200 MLS/HR Diphenhydramine HCl 50 mg ONCE ONCE IVP 01/16/19 21:15 01/16/19 21:16 DC 01/16/19 22:00 50 MG Iohexol 75 ml ONCE ONCE IV 01/16/19 20:15 01/16/19 20:16 DC 01/16/19 20:29 75 ML Ketorolac Tromethamine 30 mg ONCE ONCE IVP 01/16/19 21:15 01/16/19 21:16 DC 01/16/19 22:08 30 MG Methylprednisolone Sodium Succinate 125 mg ONCE ONCE IVP 01/16/19 21:15 01/16/19 21:16 DC 01/16/19 22:02 125 MG Orphenadrine Citrate 60 mg ONCE ONCE IV 01/16/19 21:15 01/16/19 21:16 DC 01/16/19 22:05 60 MG Sodium Chloride 100 ml ONCE ONCE IV 01/16/19 20:15 01/16/19 20:16 DC 01/16/19 20:29 80 ML Vital Signs/I&O 01/16/19 01/16/19 18:33 23:12 Temp 37.0 37.0 Pulse 109 76 Resp 16 16 B/P (MAP) 125/87 (100) 95/68 (100) Pulse Ox 100 99 O2 Delivery Room Air Room Air Capillary Refill : Less Than 3 Seconds Blood Pressure Mean: 100 Point of Care Testing Finger Stick Blood Glucose: 82 Blood Glucose Action Taken: rn notified Progress Note : Progress Note ACCUCHECK 89 ON ARRIVAL INITIALLY REFUSED ANYTHING FOR PAIN, THEN LATER ASKED FOR TYLENOL WHEN RN GAVE IT TO HER, SHE STATES SHE ":CAN'T SWALLOW" AND "EVERYTHING IS GREEN AND PURPLE" GIVEN TORADOL, BENADRYL AND NORFLEX AND ALL SYMPTOMS COMPLETELY RESOLVED PT SMILING AND PT NO LONGER HOLDING LEFT SIDE OF FACE AND NECK STIFFLY OR CLENCHING JAW PT ABLE TO SWALLOW WITHOUT DIFFICULTY. ECG Initial ECG Impression Date: Jan 16, 2019 Initial ECG Impression Time: 19:02 Initial ECG Rate: 91 Initial ECG Rhythm: Normal Sinus Initial ECG Comparisson: Unchanged EKG : EKG Time: 21:36 Rate: 79 Rhythm: Normal Sinus ECG Comparisson: Unchanged Diagnostic Imaging Comments CXR--NO ACUTE PROCESS, PER RADIOLOGIST REPORT CT HEAD--NO ACUTE PROCESS, PER RADIOLOGIST REPORT AT [address] ANGIOGRAM HEAD/NECK--NO ACUTE PROCESS, PER RADIOLOGIST REPORT AT 2100 Reviewed: Reviewed by Me Departure Impression Primary Impression: Left-sided face pain Additional Impressions: LEFT TRAPEZIUS MUSCLE PAIN LEFT LATERAL CHEST WALL PAIN Disposition: HOME, SELF-CARE Condition: Improved Departure-Patient Inst. Referrals: JOLIE NUNO (PCP) Primary Care Physician [facility] (Family) Primary Care Physician Patient Instructions: Muscle Spasms (DC), Headache, Adult (DC) Add. Discharge Instructions: MOIST HEAT TO AREA AT 20 MINUTE INTERVALS CONTINUE YOUR REGULAR MEDICATIONS FOLLOW UP WITH YOUR DR IN 1-2 DAYS IF NO BETTER, RETURN TO ER IF WORSE All discharge instructions reviewed with patient and/or family. Voiced understanding. Scripts Tizanidine HCl (Tizanidine HCl) 4 Mg Capsule 4 MG PO TID for Muscle Spasms, #15 CAP Prov: JUAN GONZALEZ DO 01/16/19 Meloxicam (Mobic) 15 Mg Tablet 15 MG PO DAILY, #10 TAB Prov: JUAN GONZALEZ DO 01/16/19 JUAN GONZALEZ DO Jan 16, 2019 21:32
--- NOTE | 2019-01-16 22:40 | NUR ---
Pt able to drink and swallow water at this time. Pt reports feeling better.
[2019-01-16] MEDS ORDERED: RX-CYCLOBENZAPRINE 10 MG (FLEXERIL) TAB PPK#3 PO STA (22:54)
[2019-01-16] MEDS ORDERED: RX-NAPROXEN (NAPROSYN) 250 MG TAB PPK#4 PO STA (22:54)
[2019-01-16] MEDS ORDERED: MELO15TA14 PO (22:58)
[2019-01-16] MEDS ORDERED: TIZA4CAP8 PO (22:58)
[2019-01-16 23:12] VITALS: BP 95/68
== END 2019-01-16 23:08 | disposition home or self-care (01) ==
LOC: EDUNIT# 18:23 → ER 18:24
DX: R51 Headache (principal); M79.10 Myalgia, unspecified site; R07.89 Other chest pain; J45.909 Unspecified asthma, uncomplicated; E78.00 Pure hypercholesterolemia, unspecified; Q24.9 Congenital malformation of heart, unspecified; G40.909 Epilepsy, unspecified, not intractable, without status epilepticus; E11.40 Type 2 diabetes mellitus with diabetic neuropathy, unspecified; K21.9 Gastro-esophageal reflux disease without esophagitis; K58.9 Irritable bowel syndrome, unspecified; F90.9 Attention-deficit hyperactivity disorder, unspecified type; F41.9 Anxiety disorder, unspecified; F43.10 Post-traumatic stress disorder, unspecified; F31.9 Bipolar disorder, unspecified; F17.210 Nicotine dependence, cigarettes, uncomplicated; Z86.69 Personal history of other diseases of the nervous system and sense organs; Z98.51 Tubal ligation status; Z86.73 Personal history of transient ischemic attack (TIA), and cerebral infarction without residual deficits; Z86.718 Personal history of other venous thrombosis and embolism; Z79.01 Long term (current) use of anticoagulants; Z91.040 Latex allergy status; Z88.0 Allergy status to penicillin; Z88.2 Allergy status to sulfonamides
CPT/HCPCS: 36415; 70450; 70496; 70498; 71046; 80053; 80306; 80320; 81000; 82550; 82553; 82962; 83735; 83874; 83880; 84443; 84484; 84703; 85025; 85610; 85652; 85730; 87088; 93005; 93041; 96365; 96375

== ENCOUNTER → 2019-03-05 | Outpatient (CLI) | payer MEDICAID ==
[~2019-03-05] MED LIST changes: +TIZA4CAP8 PO
--- NOTE | 2019-03-05 10:51 | Diagnostic Imaging Report ---
PROCEDURE: CT abdomen without contrast. TECHNIQUE: Multiple contiguous axial images were obtained through the abdomen without the use of intravenous contrast. Auto Exposure Controls were utilized during the CT exam to meet ALARA standards for radiation dose reduction. INDICATION: Pain, fever. COMPARISON: 08/24/2018. FINDINGS: The spleen size is within normal limits. The spleen appears nonfocal. No perisplenic fluid collection. The adrenals are negative. The pancreas is unremarkable. The gallbladder is contracted with no visualized stone or bile duct dilatation. There are no opaque kidney stones and there is no hydroureteronephrosis. No ascites, abscess, hematoma, or fluid collection. The visualized abdominal small and large bowel is unobstructed, nonfocal, and nonacute. IMPRESSION: Nonfocal normal sized spleen. No hemorrhage, edema, ascites, or other fluid collection. No obstructive features or acute finding. No stone disease. Dictated by: Dictated on workstation # [id number]
== END ==
LOC: RAD 09:59
PROVIDERS: ATTEND Pediatrics
DX: D73.9 Disease of spleen, unspecified (principal); R50.81 Fever presenting with conditions classified elsewhere; R10.9 Unspecified abdominal pain
CPT/HCPCS: 74150

== ENCOUNTER 2019-03-07 17:11 | Emergency (ER) | payer MEDICAID ==
[~2019-03-07] VITALS: Ht 154.9 cm; Wt 88.4 kg
[2019-03-07] MEDS ORDERED: NS IV 1000 ML 1,000 ML IV SCH (17:15)
[2019-03-07] MEDS ORDERED: PROMETHAZINE INJ 25 MG/ML (PHENERGAN) AMP IVP ONE (17:15)
--- NOTE | 2019-03-07 17:22 | ED Chest Pain ---
General Chief Complaint: Chest Pain Stated Complaint: CP,SOA Source: patient Exam Limitations: no limitations History of Present Illness Date Seen by Provider: Mar 07, 2019 Time Seen by Provider: 17:20 Initial Comments To ER per EMS from home with reports of chest pain shortness of breath. She's had some left-sided chest pain radiating to her neck and left arm throughout the day today. She also had an outpatient CT of her "spleen" yesterday because of some ongoing pain she's had in the left upper quadrant with poor appetite for the past 2-3 days. 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 NTG SL SIGNAL WORKER: No Associated Symptoms: shortness of breath Allergies and Home Medications Allergies Coded Allergies: latex (Verified Allergy, Severe, BLISTERS, 08/24/17) penicillin (Verified Allergy, Severe, ITCHING, 08/24/17) Sulfa (Sulfonamide Antibiotics) (Verified Allergy, Unknown, RASH, 08/24/17) Home Medications Cyclobenzaprine HCl 10 Mg Tablet, 10 MG PO Q8H Prescribed by: JUAN GONZALEZ on 11/02/182328 Gabapentin 300 Mg Capsule, 300 MG PO 0800,1200, (Reported) Lurasidone HCl 60 Mg Tablet, 60 MG PO for ANXIETY, (Reported) Meloxicam 15 Mg Tablet, 15 MG PO DAILY Prescribed by: JUAN GONZALEZ on 11/02/182328 Meloxicam 15 Mg Tablet, 15 MG PO DAILY Prescribed by: JUAN GONZALEZ on 01/16/192257 Tizanidine HCl 4 Mg Capsule, 4 MG PO TID Prescribed by: JUAN GONZALEZ on 01/16/192257 Patient Home Medication List Home Medication List Reviewed: Yes Review of Systems Review of Systems Constitutional: see HPI; No chills, No fever EENTM: No Symptoms Reported Respiratory: No Symptoms Reported Cardiovascular: See HPI, Chest Pain, Palpitations Gastrointestinal: No Symptoms Reported Genitourinary: No Symptoms Reported Musculoskeletal: no symptoms reported Skin: no symptoms reported Psychiatric/Neurological: No Symptoms Reported Endocrine: No Symptoms Reported Hematologic/Lymphatic: No Symptoms Reported Past Mmkjqzq-Lwhfjc-Azvoks Hx Patient Social History Alcohol Beverage of Choice: Vodka, Other Drug of Choice: CHRONIC OPIATE USE/ABUSE AND OVERDOSES Type Used: Cigarettes 2nd Hand Smoke Exposure: No Recent Foreign Travel: No Contact w/Someone Who Travel: No Recent Hopitalizations: No Immunizations Up To Date Tetanus Booster (TDap): Less than 5yrs PED Vaccines UTD: Yes Date of Pneumonia Vaccine: Feb 26, 2015 Date of Influenza Vaccine: Feb 17, 2018 Seasonal Allergies Seasonal Allergies: Yes Past Medical History Surgeries: Yes Cardiac, Orthopedic, 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, Vascular Surgery Respiratory: Yes Asthma Currently Using CPAP: No Currently Using BIPAP: No Cardiac: Yes Congenital Heart Disease, Deep Vein Thrombosis, High Cholesterol, Palpitations Neurological: Yes Headaches /Migraines, Neuropathy, Seizure Disorder, Stroke 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 Disorders: Yes (MENORRHAGIA) Female 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 Disorders: Menstrual Problems, 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 History: IUD, 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 Sexually Transmitted Disease: No HIV/AIDS: No Genitourinary: Yes Kidney Stones Gastrointestinal: Yes Colitis, Gastroesophageal Reflux, Hemorrhoids, Irritable Bowel Musculoskeletal: Yes Degenerate Disk Disease, Foot Drop, Scoliosis, Chronic Back Pain, Fractures Endocrine: Yes (DIET CONTROLLED DIABETIC) Diabetes, Non-Insulin dep HEENT: Yes ("LEGALLY BLIND" ; LEFT FACIAL/ORBITAL FRACTURE REPAIRED 03/2018) Loss of Vision: Bilateral Hearing Impairment: Denies Cancer: No Psychosocial: Yes ADD/ADHD, Anxiety, PTSD, Suicide Attempts, Bipolar, Depression Integumentary: Yes Herpes Blood Disorders: Yes (ANEMIA, DVT'S/CVA) Adverse Reaction/Blood Tranf: No (N/A) Family Medical History Antiphospholipid syndrome 19 MOTHER Diabetes mellitus 19 FATHER G8 BROTHER FH: aneurysm 19 FATHER FH: lupus 19 MOTHER FHx: congestive heart failure 19 FATHER FHx: renal failure 19 MOTHER Heart murmur 19 MOTHER Lupus anticoagulant disorder 19 MOTHER Patent foramen ovale 19 FATHER Barry syndrome G8 SISTER No Pertinent Family Hx Physical Exam Vital Signs Vital Signs - First Documented Capillary Refill : Height, Weight, BMI Height: 5'4.00" Weight: 189lbs. 9.0oz. 85.061102iv; 38.00 BMI Method:Stated General Appearance: No Apparent Distress, WD/WN, Anxious (tremulous ) HEENT: PERRL/EOMI, TMs Normal Neck: Full Range of Motion, Normal Inspection Respiratory: No Accessory Muscle Use, No Respiratory Distress Cardiovascular: Normal Peripheral Pulses, Tachycardia Gastrointestinal: Normal Bowel Sounds, Non Tender, Soft Extremity: Normal Capillary Refill, Normal Inspection Neurologic/Psychiatric: Alert, Oriented x3 Skin: Normal Color, Warm/Dry Progress/Results/Core Measures Results/Orders Lab Results Laboratory Tests Test 03/07/19 17:39 03/07/19 19:51 Range/Units White Blood Count 8.4 4.3-11.0 10^3/uL Red Blood Count 4.69 4.35-5.85 10^6/uL Hemoglobin 12.7 11.5-16.0 G/DL Hematocrit 39 35-52 % Mean Corpuscular Volume 83 80-99 FL Mean Corpuscular Hemoglobin 27 25-34 PG Mean Corpuscular Hemoglobin Concent 33 32-36 G/DL Red Cell Distribution Width 16.1 H 10.0-14.5 % Platelet Count 413 H 130-400 10^3/uL Mean Platelet Volume 9.8 7.4-10.4 FL Neutrophils (%) (Auto) 62 42-75 % Lymphocytes (%) (Auto) 33 12-44 % Monocytes (%) (Auto) 4 0-12 % Eosinophils (%) (Auto) 1 0-10 % Basophils (%) (Auto) 0 0-10 % Neutrophils # (Auto) 5.2 1.8-7.8 X 10^3 Lymphocytes # (Auto) 2.7 1.0-4.0 X 10^3 Monocytes # (Auto) 0.4 0.0-1.0 X 10^3 Eosinophils # (Auto) 0.1 0.0-0.3 10^3/uL Basophils # (Auto) 0.0 0.0-0.1 10^3/uL Prothrombin Time 13.9 12.2-14.7 SEC INR Comment 1.0 0.8-1.4 Activated Partial Thromboplast Time 37 H 24-35 SEC Sodium Level 139 135-145 MMOL/L Potassium Level 3.5 L 3.6-5.0 MMOL/L Chloride Level 107 98-107 MMOL/L Carbon Dioxide Level 19 L 21-32 MMOL/L Anion Gap 13 5-14 MMOL/L Blood Urea Nitrogen 4 L 7-18 MG/DL Creatinine 0.77 0.60-1.30 MG/DL Estimat Glomerular Filtration Rate > 60 BUN/Creatinine Ratio 5 Glucose Level 98 70-105 MG/DL Calcium Level 9.7 8.5-10.1 MG/DL Corrected Calcium 9.3 8.5-10.1 MG/DL Magnesium Level 1.7 1.6-2.4 MG/DL Total Bilirubin 0.3 0.1-1.0 MG/DL Aspartate Amino Transf (AST/SGOT) 12 5-34 U/L Alanine Aminotransferase (ALT/SGPT) 12 0-55 U/L Alkaline Phosphatase 45 40-136 U/L Myoglobin 26.0 10.0-92.0 NG/ML Troponin I < 0.028 <0.028 NG/ML B-Type Natriuretic Peptide < 10.0 <100.0 PG/ML Total Protein 7.6 6.4-8.2 GM/DL Albumin 4.5 3.2-4.5 GM/DL Serum Test, Qualitative NEGATIVE NEGATIVE My Orders Orders - LAWRENCE WHITESIDE APRN Cbc With Automated Diff (03/07/19 17:15) Magnesium (03/07/19 17:15) Chest 1 View, Ap/Pa Only (03/07/19 17:15) Ekg Tracing (03/07/19 17:15) Comprehensive Metabolic Panel (03/07/19 17:15) Myoglobin Serum (03/07/19 17:15) Protime With Inr (03/07/19 17:15) Partial Thromboplastin Time (03/07/19 17:15) O2 (03/07/19 17:15) Monitor-Rhythm Ecg Trace Only (03/07/19 17:15) Lipid Panel (03/08/19 06:00) Ed Iv/Invasive Line Start (03/07/19 17:15) BNP (03/07/19 17:15) Promethazine Injection (Phenergan Injec (03/07/19 17:15) Ns Iv 1000 Ml (Sodium Chloride 0.9%) (03/07/19 17:15) Hcg,Qualitative Serum (03/07/19 17:22) Ct Angio Chest W (03/07/19 17:22) Antacid Suspension (Mylanta Suspension (03/07/19 17:30) Lidocaine 2% Viscous 15 Ml (Xylocaine Vi (03/07/19 17:30) Lorazepam Injection (Ativan Injection) (03/07/19 17:30) Troponin I (03/07/19 17:39) Iohexol Injection (Omnipaque 350 Mg/Ml 1 (03/07/19 18:30) Received Contrast (Hold Metformin- Contr (03/07/19 18:30) Sodium Chloride Flush (Catheter Flush Sy (03/07/19 18:30) Ns (Ivpb) (Sodium Chloride 0.9% Ivpb Bag (03/07/19 18:30) Troponin I (03/07/19 19:40) Medications Given in ED Current Medications Medications Dose Ordered Sig/Diomedes Route Start Time Stop Time Status Last Admin Dose Admin Al Hydrox/Mg Hydrox/Simethicone 30 ml ONCE ONCE PO 03/07/19 17:30 03/07/19 17:31 DC 03/07/19 17:54 30 ML Iohexol 100 ml ONCE ONCE IV 03/07/19 18:30 03/07/19 18:31 DC 03/07/19 18:35 77 ML Lidocaine HCl 10 ml ONCE ONCE PO 03/07/19 17:30 03/07/19 17:31 DC 03/07/19 17:54 10 ML Promethazine HCl 25 mg ONCE ONCE IVP 03/07/19 17:15 03/07/19 17:17 DC 03/07/19 17:48 25 MG Sodium Chloride 10 ml NEEDED PRN IV 03/07/19 18:30 03/07/19 18:35 10 ML Sodium Chloride 100 ml ONCE ONCE IV 03/07/19 18:30 03/07/19 18:31 DC 03/07/19 18:35 80 ML Vital Signs/I&O 03/07/19 03/07/19 17:11 17:11 Temp 37.2 Pulse 110 Resp 29 B/P (MAP) 138/85 (102) Pulse Ox 100 O2 Delivery Room Air Room Air Departure Communication (Admissions) NAME: COLTON ORTIZ Diomedes MED REC#: [id number] PT STATUS: REG ER : 1985 PHYSICIAN: LAWRENCE WHITESIDE APRN ADMIT DATE: 03/07/19/ER Draft POSDate of Exam:03/07/19 CT ANGIO CHEST W PROCEDURE: CT angiography of the chest with contrast. TECHNIQUE: Multiple contiguous axial images were obtained through the chest after uneventful bolus administration of intravenous contrast. 3D reconstructed CTA MIP acquisitions were also performed. Auto Exposure Controls were utilized during the CT exam to meet ALARA standards for radiation dose reduction. INDICATION: Tachycardia with dizziness and syncopal episode. Left neck and chest pain. FINDINGS: There is adequate opacification of the pulmonary arterial system for diagnostic evaluation. There are no findings of a filling defect to suggest pulmonary embolism. Thoracic aorta normal in caliber without aneurysm or dissection. Heart size is appropriate. There is no pericardial collection. Lungs appear clear without focal infiltrate or evidence of an effusion. There is no pneumothorax. There is no pulmonary nodule or mass. There are no pathologically enlarged mediastinal or hilar lymph nodes. The axilla are unremarkable. There is subcutaneous loop recorder within the left chest. Visualized inferior neck demonstrates patent common carotid and vertebral arteries. Upper abdomen demonstrates no acute inflammatory or obstructive process. No acute or suspicious osseous abnormality is demonstrated. IMPRESSION: 1. No CT angiographic evidence of pulmonary embolism. 2. Thoracic aorta unremarkable. 3. Lungs clear without infiltrate, effusion, nodule or mass. 4. No pathologic adenopathy. 5. No acute or suspicious osseous abnormality. Dictated on workstation # [id number] Dict: 03/07/19 1839 Trans: 03/07/19 1844 [id number] Interpreted by: JESSICA DURAN MD Electronically signed by: Impression Primary Impression: Chest pain Qualified Codes: R07.9 - Chest pain, unspecified Disposition: 01 HOME, SELF-CARE Condition: Stable Departure-Patient Inst. Referrals: [facility] (PCP/Family) Primary Care Physician LAWRENCE WHITESIDE APRN Mar 07, 2019 17:22 POS
[2019-03-07] MEDS ORDERED: LIDOCAINE 2% VISCOUS 15 ML UDC PO ONE (17:30)
[2019-03-07] MEDS ORDERED: LORazepam INJ 2 MG/ML (ATIVAN) VIAL IVP PRN (17:30)
[2019-03-07] MEDS ORDERED: ANTACID SUSP 30 ML UDC (MYLANTA) PO ONE (17:30)
[2019-03-07 17:48] LABS: BASOPHILS % (AUTO) 0 % (0-10); EOSINOPHILS # (AUTO) 0.1 10^3/uL (0.0-0.3); EOSINOPHILS % (AUTO) 1 % (0-10); HEMATOCRIT 39 % (35-52); HEMOGLOBIN 12.7 G/DL (11.5-16.0); LYMPHOCYTES # (AUTO) 2.7 X 10^3 (1.0-4.0); LYMPHOCYTES % (AUTO) 33 % (12-44); MEAN CORPUSCULAR HEMOGLOBIN 27 PG (25-34); MEAN CORPUSCULAR HGB CONC 33 G/DL (32-36); MEAN CORPUSCULAR VOLUME 83 FL (80-99); MEAN PLATELET VOLUME 9.8 FL (7.4-10.4); MONOCYTES # (AUTO) 0.4 X 10^3 (0.0-1.0); MONOCYTES % (AUTO) 4 % (0-12); NEUTROPHILS # (AUTO) 5.2 X 10^3 (1.8-7.8); NEUTROPHILS % (AUTO) 62 % (42-75); PLATELET COUNT 413 10^3/uL (130-400); RED CELL DISTRIBUTION WIDTH 16.1 % (10.0-14.5); WHITE BLOOD COUNT 8.4 10^3/uL (4.3-11.0)
[2019-03-07 18:05] LABS: PROTHROMBIN TIME PATIENT 13.9 SEC (12.2-14.7)
[2019-03-07 18:13] LABS: ALANINE AMINOTRANSFERASE 12 U/L (0-55); ALBUMIN 4.5 GM/DL (3.2-4.5); ALKALINE PHOSPHATASE 45 U/L (40-136); BILIRUBIN,TOTAL 0.3 MG/DL (0.1-1.0); BUN/CREATININE RATIO 5; CALCIUM 9.7 MG/DL (8.5-10.1); CARBON DIOXIDE 19 MMOL/L (21-32); CHLORIDE 107 MMOL/L (98-107); CREATININE SERUM 0.77 MG/DL (0.60-1.30); GFR ESTIMATED > 60; GLUCOSE 98 MG/DL (70-105); MAGNESIUM 1.7 MG/DL (1.6-2.4); POTASSIUM 3.5 MMOL/L (3.6-5.0); SODIUM 139 MMOL/L (135-145); TOTAL PROTEIN 7.6 GM/DL (6.4-8.2)
--- NOTE | 2019-03-07 18:23 | NUR ---
Pt reports GI cocktail did not make much difference in the pain.
[2019-03-07] MEDS ORDERED: NS 100 ML (IVPB) BAG IV ONE (18:30)
[2019-03-07] MEDS ORDERED: CATHETER FLUSH 10 ML SYR IV PRN (18:30)
[2019-03-07] MEDS ORDERED: HOLD METFORMIN - RECEIVED CONTRAST 20 ML VIAL IV SCH (18:30)
[2019-03-07] MEDS ORDERED: IOHEXOL 350 MG/ML 100 ML (OMNIPAQUE 350) VIAL IV ONE (18:30)
--- NOTE | 2019-03-07 18:44 | Diagnostic Imaging Report ---
PROCEDURE: CT angiography of the chest with contrast. TECHNIQUE: Multiple contiguous axial images were obtained through the chest after uneventful bolus administration of intravenous contrast. 3D reconstructed CTA MIP acquisitions were also performed. Auto Exposure Controls were utilized during the CT exam to meet ALARA standards for radiation dose reduction. INDICATION: Tachycardia with dizziness and syncopal episode. Left neck and chest pain. FINDINGS: There is adequate opacification of the pulmonary arterial system for diagnostic evaluation. There are no findings of a filling defect to suggest pulmonary embolism. Thoracic aorta normal in caliber without aneurysm or dissection. Heart size is appropriate. There is no pericardial collection. Lungs appear clear without focal infiltrate or evidence of an effusion. There is no pneumothorax. There is no pulmonary nodule or mass. There are no pathologically enlarged mediastinal or hilar lymph nodes. The axilla are unremarkable. There is subcutaneous loop recorder within the left chest. Visualized inferior neck demonstrates patent common carotid and vertebral arteries. Upper abdomen demonstrates no acute inflammatory or obstructive process. No acute or suspicious osseous abnormality is demonstrated. IMPRESSION: 1. No CT angiographic evidence of pulmonary embolism. 2. Thoracic aorta unremarkable. 3. Lungs clear without infiltrate, effusion, nodule or mass. 4. No pathologic adenopathy. 5. No acute or suspicious osseous abnormality. Dictated by: Dictated on workstation # [id number]
--- NOTE | 2019-03-07 18:53 | Diagnostic Imaging Report ---
EXAMINATION: Portable chest INDICATION: Tachycardia and dizziness. FINDINGS: Implantable loop recorder is noted. Heart size is normal. Pulmonary vascularity appears within normal limits. Lungs demonstrate no infiltrate or effusion. There is no pneumothorax. No suspicious osseous abnormality evident. IMPRESSION: 1. No radiographic evidence of an acute cardiopulmonary process. Dictated by: Dictated on workstation # [id number]
[2019-03-07 20:38] VITALS: BP 119/85
== END 2019-03-07 20:41 | disposition home or self-care (01) ==
LOC: EDUNIT# 17:11 → ER 17:12
DX: R07.9 Chest pain, unspecified (principal); J45.909 Unspecified asthma, uncomplicated; E78.00 Pure hypercholesterolemia, unspecified; E11.40 Type 2 diabetes mellitus with diabetic neuropathy, unspecified; G43.909 Migraine, unspecified, not intractable, without status migrainosus; G40.909 Epilepsy, unspecified, not intractable, without status epilepticus; F90.9 Attention-deficit hyperactivity disorder, unspecified type; F41.9 Anxiety disorder, unspecified; F43.10 Post-traumatic stress disorder, unspecified; D64.9 Anemia, unspecified; K21.9 Gastro-esophageal reflux disease without esophagitis; K58.9 Irritable bowel syndrome, unspecified; Z86.718 Personal history of other venous thrombosis and embolism; Z88.0 Allergy status to penicillin; Z91.040 Latex allergy status; Z88.2 Allergy status to sulfonamides; Z98.51 Tubal ligation status; Z82.49 Family history of ischemic heart disease and other diseases of the circulatory system
CPT/HCPCS: 36415; 71045; 71275; 80053; 83735; 83874; 83880; 84484; 84703; 85025; 85610; 85730; 93005; 93041

== ENCOUNTER 2019-03-13 11:47 | Emergency (ER) | payer MEDICAID ==
[~2019-03-13] VITALS: Ht 173 cm; Wt 88.4 kg
[~2019-03-13 11:47] MED LIST changes: +OMEP-280 PO; -OMEP20CA13 PO; -TRAM50TA2 PO; +TRM50T PO
--- NOTE | 2019-03-13 11:54 | ED Cardiac General ---
History of Present Illness General Stated Complaint: CP Exam Limitations: no limitations History of Present Illness Date Seen by Provider: Mar 13, 2019 Time Seen by Provider: 11:51 Initial Comments 33-year-old female presents with chest pain. Patient was brought in by EMS. Patient reports that she was in group therapy when she had onset of chest pain went to her neck or arm. Patient reports she's had a little dizziness since last night. Patient has had a history of recurrent chest pain with negative workups. She was seen by cardiology yesterday or this morning and are scheduling an outpatient stress test and it echo. Patient's symptoms lasted about 10 minutes are now completely resolved. Patient denies any fevers chills cough or other systemic complaints patient received aspirin in route Allergies and Home Medications Allergies Coded Allergies: latex (Verified Allergy, Severe, BLISTERS, 08/24/17) penicillin (Verified Allergy, Severe, ITCHING, 08/24/17) Sulfa (Sulfonamide Antibiotics) (Verified Allergy, Unknown, RASH, 08/24/17) Home Medications Cyclobenzaprine HCl 10 Mg Tablet, 10 MG PO Q8H Prescribed by: JUAN GONZALEZ on 11/02/182328 Gabapentin 300 Mg Capsule, 300 MG PO 0800,1200, (Reported) Lurasidone HCl 60 Mg Tablet, 60 MG PO for ANXIETY, (Reported) Meloxicam 15 Mg Tablet, 15 MG PO DAILY Prescribed by: JUAN GONZALEZ on 11/02/182328 Meloxicam 15 Mg Tablet, 15 MG PO DAILY Prescribed by: JUAN GONZALEZ on 01/16/192257 Tizanidine HCl 4 Mg Capsule, 4 MG PO TID Prescribed by: JUAN GONZALEZ on 01/16/192257 Patient Home Medication List Home Medication List Reviewed: Yes Review of Systems Review of Systems Constitutional: No chills, No fever Respiratory: Denies Cough Cardiovascular: Chest Pain Genitourinary: No Symptoms Reported Musculoskeletal: no symptoms reported Skin: no symptoms reported Psychiatric/Neurological: Other (dizziness) Past Yiafshh-Nkmhvd-Uytlly Hx Past Med/Social Hx: Reviewed Nursing Past Med/Soc Hx Patient Social History Alcohol Beverage of Choice: Vodka, Other Drug of Choice: CHRONIC OPIATE USE/ABUSE AND OVERDOSES Type Used: Cigarettes 2nd Hand Smoke Exposure: No Recent Hopitalizations: No Immunizations Up To Date Tetanus Booster (TDap): Less than 5yrs PED Vaccines UTD: Yes Date of Pneumonia Vaccine: Feb 26, 2015 Date of Influenza Vaccine: Feb 17, 2018 Seasonal Allergies Seasonal Allergies: Yes Past Medical History Surgeries: Yes Cardiac, Orthopedic, 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, Vascular Surgery Respiratory: Yes Asthma Currently Using CPAP: No Currently Using BIPAP: No Cardiac: Yes Congenital Heart Disease, Deep Vein Thrombosis, High Cholesterol, Palpitations Neurological: Yes Headaches /Migraines, Neuropathy, Seizure Disorder, Stroke 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 Disorders: Yes (MENORRHAGIA) Female 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 Disorders: Menstrual Problems, 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, 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 Sexually Transmitted Disease: No HIV/AIDS: No Genitourinary: Yes Kidney Stones Gastrointestinal: Yes Colitis, Gastroesophageal Reflux, Hemorrhoids, Irritable Bowel Musculoskeletal: Yes Degenerate Disk Disease, Foot Drop, Scoliosis, Chronic Back Pain, Fractures Endocrine: Yes (DIET CONTROLLED DIABETIC) Diabetes, Non-Insulin dep HEENT: Yes ("LEGALLY BLIND" ; LEFT FACIAL/ORBITAL FRACTURE REPAIRED 03/2018) Loss of Vision: Bilateral Hearing Impairment: Denies Cancer: No Psychosocial: Yes ADD/ADHD, Anxiety, PTSD, Suicide Attempts, Bipolar, Depression Integumentary: Yes Herpes Blood Disorders: Yes (ANEMIA, DVT'S/CVA) Adverse Reaction/Blood Tranf: No (N/A) Family Medical History Antiphospholipid syndrome 19 MOTHER Diabetes mellitus 19 FATHER G8 BROTHER FH: aneurysm 19 FATHER FH: lupus 19 MOTHER FHx: congestive heart failure 19 FATHER FHx: renal failure 19 MOTHER Heart murmur 19 MOTHER Lupus anticoagulant disorder 19 MOTHER Patent foramen ovale 19 FATHER Barry syndrome G8 SISTER No Pertinent Family Hx Physical Exam Vital Signs Capillary Refill : Height, Weight, BMI Height: 5'4.00" Weight: 189lbs. 9.0oz. 85.020075mn; 36.00 BMI Method:Stated General Appearance: No Apparent Distress, Anxious HEENT: Normal ENT Inspection Neck: Non Tender, Supple Respiratory: Chest Non Tender, Lungs Clear Cardiovascular: Regular Rate, Rhythm, No Murmur, Normal Peripheral Pulses Extremity: Normal Capillary Refill, Normal Inspection Neurologic/Psychiatric: Alert, Oriented x3 Skin: Normal Color, Warm/Dry Progress/Results/Core Measures Results/Orders Lab Results Laboratory Tests Test 03/13/19 12:27 Range/Units White Blood Count 7.3 4.3-11.0 10^3/uL Red Blood Count 4.69 4.35-5.85 10^6/uL Hemoglobin 12.8 11.5-16.0 G/DL Hematocrit 40 35-52 % Mean Corpuscular Volume 85 80-99 FL Mean Corpuscular Hemoglobin 27 25-34 PG Mean Corpuscular Hemoglobin Concent 32 32-36 G/DL Red Cell Distribution Width 16.0 H 10.0-14.5 % Platelet Count 398 130-400 10^3/uL Mean Platelet Volume 10.0 7.4-10.4 FL Neutrophils (%) (Auto) 50 42-75 % Lymphocytes (%) (Auto) 41 12-44 % Monocytes (%) (Auto) 5 0-12 % Eosinophils (%) (Auto) 3 0-10 % Basophils (%) (Auto) 0 0-10 % Neutrophils # (Auto) 3.7 1.8-7.8 X 10^3 Lymphocytes # (Auto) 3.0 1.0-4.0 X 10^3 Monocytes # (Auto) 0.4 0.0-1.0 X 10^3 Eosinophils # (Auto) 0.2 0.0-0.3 10^3/uL Basophils # (Auto) 0.0 0.0-0.1 10^3/uL Sodium Level 140 135-145 MMOL/L Potassium Level 4.2 3.6-5.0 MMOL/L Chloride Level 108 H 98-107 MMOL/L Carbon Dioxide Level 21 21-32 MMOL/L Anion Gap 11 5-14 MMOL/L Blood Urea Nitrogen 8 7-18 MG/DL Creatinine 0.73 0.60-1.30 MG/DL Estimat Glomerular Filtration Rate > 60 BUN/Creatinine Ratio 11 Glucose Level 90 70-105 MG/DL Calcium Level 9.5 8.5-10.1 MG/DL Troponin I < 0.028 <0.028 NG/ML My Orders Orders - MJ BUENO DO Basic Metabolic Panel (03/13/19 11:59) Cbc With Automated Diff (03/13/19 11:59) Troponin I (03/13/19 11:59) Ekg Tracing (03/13/19 11:59) Chest Pa/Lat (2 View) (03/13/19 12:44) Departure Impression Primary Impression: Chest pain Qualified Codes: R07.9 - Chest pain, unspecified Disposition: 01 HOME, SELF-CARE Condition: Stable Departure-Patient Inst. Referrals: [facility] (PCP/Family) Primary Care Physician Patient Instructions: Chest Pain Add. Discharge Instructions: Follow-up with the manifold operator for further outpatient testing as already tara keenan The Emergency Department focuses on treating and ruling out life-threatening diseases. Whenever possible, a diagnosis is given. However most patient's are given an impression based on the history, physical exam, and workup during their brief time in the ER. Information about probable diagnosis and other educational material has been provided. Please take the time to read and understand this information. It is very important that he follow up with a doctor as discussed during her visit today. Failure to adhere to your follow-up instructions may result in severe disability, injury or so please make sure to keep your caydne ointments. Please keep in mind the emergency department is not designed to be your primary care or "family doctor" and not urgent issues are best evaluated by an outpatient physician MJ BUENO DO Mar 13, 2019 11:54 POS
[2019-03-13 12:35] LABS: BASOPHILS % (AUTO) 0 % (0-10); EOSINOPHILS # (AUTO) 0.2 10^3/uL (0.0-0.3); EOSINOPHILS % (AUTO) 3 % (0-10); HEMATOCRIT 40 % (35-52); HEMOGLOBIN 12.8 G/DL (11.5-16.0); LYMPHOCYTES % (AUTO) 41 % (12-44); MEAN CORPUSCULAR HEMOGLOBIN 27 PG (25-34); MEAN CORPUSCULAR HGB CONC 32 G/DL (32-36); MEAN CORPUSCULAR VOLUME 85 FL (80-99); MONOCYTES # (AUTO) 0.4 X 10^3 (0.0-1.0); MONOCYTES % (AUTO) 5 % (0-12); NEUTROPHILS # (AUTO) 3.7 X 10^3 (1.8-7.8); NEUTROPHILS % (AUTO) 50 % (42-75); PLATELET COUNT 398 10^3/uL (130-400); WHITE BLOOD COUNT 7.3 10^3/uL (4.3-11.0)
[2019-03-13 12:56] LABS: BUN/CREATININE RATIO 11; CALCIUM 9.5 MG/DL (8.5-10.1); CARBON DIOXIDE 21 MMOL/L (21-32); CHLORIDE 108 MMOL/L (98-107); CREATININE SERUM 0.73 MG/DL (0.60-1.30); GFR ESTIMATED > 60; GLUCOSE 90 MG/DL (70-105); POTASSIUM 4.2 MMOL/L (3.6-5.0); SODIUM 140 MMOL/L (135-145)
--- NOTE | 2019-03-13 13:44 | Diagnostic Imaging Report ---
INDICATION: Chest pain, irregular heartbeat. FINDINGS: Loop recorder overlies the left chest. The heart and vessels appeared normal. No failure, effusion or pneumothorax. IMPRESSION: Negative. Dictated by: Dictated on workstation # [id number]
[2019-03-13 14:02] VITALS: BP 125/93
== END 2019-03-13 14:02 | disposition home or self-care (01) ==
LOC: ER 11:47
DX: R07.9 Chest pain, unspecified (principal); J45.909 Unspecified asthma, uncomplicated; E78.00 Pure hypercholesterolemia, unspecified; G43.909 Migraine, unspecified, not intractable, without status migrainosus; E11.40 Type 2 diabetes mellitus with diabetic neuropathy, unspecified; G40.909 Epilepsy, unspecified, not intractable, without status epilepticus; K21.9 Gastro-esophageal reflux disease without esophagitis; K58.9 Irritable bowel syndrome, unspecified; F90.9 Attention-deficit hyperactivity disorder, unspecified type; F41.9 Anxiety disorder, unspecified; F43.10 Post-traumatic stress disorder, unspecified; F31.9 Bipolar disorder, unspecified; D64.9 Anemia, unspecified; Z98.51 Tubal ligation status; Z86.73 Personal history of transient ischemic attack (TIA), and cerebral infarction without residual deficits; Z86.718 Personal history of other venous thrombosis and embolism; Z87.442 Personal history of urinary calculi; Z91.040 Latex allergy status; Z88.0 Allergy status to penicillin; Z88.2 Allergy status to sulfonamides; Z82.49 Family history of ischemic heart disease and other diseases of the circulatory system
CPT/HCPCS: 36415; 71046; 80048; 84484; 85025; 93005

== ENCOUNTER → 2019-03-19 | Outpatient (CLI) | payer MEDICAID | LOC: LAB 11:49 | PROVIDERS: ATTEND Nurse Practitioner Family | DX: R55 Syncope and collapse (principal); R07.9 Chest pain, unspecified; R00.0 Tachycardia, unspecified; Z72.0 Tobacco use | CPT/HCPCS: 36415; 84703 ==

== ENCOUNTER → 2019-03-20 | Outpatient (CLI) | payer MEDICAID ==
[~2019-03-20] VITALS: Ht 154 cm; Wt 96.0 kg
[~2019-03-20] MED LIST changes: +CATHETER FLUSH 10 ML SYR IV PRN; -OMEP-280 PO; +OMEP20CA13 PO; +REGADENOSON 0.4 MG/5 ML SYR (LEXISCAN) IV ONE; +TRAM50TA2 PO; -TRM50T PO
--- NOTE | 2019-03-20 16:23 | STRESS TEST ---
DATE OF SERVICE: 03/20/2019 RESTING AND POST REGADENOSON TECHNETIUM-99M TETROFOSMIN SPECT CT IMAGING ORDERING PHYSICIAN: Nancy Morales APRN PRIMARY PHYSICIAN: [facility]. CLINICAL DIAGNOSIS: Syncope. Baseline images were carried out after injection of 10.82 mCi of technetium-99m Tetrofosmin. This was followed by 0.4 mg regadenoson and 30.9 mCi of technetium-99m Tetrofosmin for stress imaging. The electrocardiogram showed sinus rhythm at baseline. It did not change significantly with regadenoson infusion. The patient tolerated the procedure well. Review of images at rest and following stress does not indicate any significant perfusion defects consistent with significant myocardial ischemia or infarction. Gated images show normal global left ventricular systolic function with normal regional wall motion. Left ventricular ejection fraction is calculated to be 55%. Left ventricular end diastolic volume is 60 mL. TID is absent (1.01). CONCLUSIONS: 1. No evidence of any significant myocardial ischemia or infarction is seen. 2. Normal regional wall motion. 3. Normal global left ventricular systolic function with a calculated ejection fraction of 55%. Job ID: [id number] DocumentID: [id number] Dictated Date: 03/20/2019 15:46:09 Frog Farmer Date: 03/20/2019 16:22:33 Dictated By: BONI VALDIVIA MD, MA, FACP, FACC,
== END ==
LOC: CARD 11:32
PROVIDERS: ATTEND Nurse Practitioner Family
DX: R55 Syncope and collapse (principal); R07.89 Other chest pain; R00.0 Tachycardia, unspecified; Z72.0 Tobacco use
CPT/HCPCS: 78452; 93017

== ENCOUNTER → 2019-03-21 | Outpatient (CLI) | payer MEDICAID ==
[~2019-03-21] MED LIST changes: -CATHETER FLUSH 10 ML SYR IV PRN; -REGADENOSON 0.4 MG/5 ML SYR (LEXISCAN) IV ONE
== END ==
LOC: CARD 13:53
PROVIDERS: ATTEND Nurse Practitioner Family
DX: R55 Syncope and collapse (principal); R07.9 Chest pain, unspecified; R00.0 Tachycardia, unspecified; Z72.0 Tobacco use

== ENCOUNTER 2019-04-24 11:39 | Emergency (ER) | payer MEDICAID ==
[~2019-04-24 11:39] MED LIST changes: +OMEP-280 PO; -OMEP20CA13 PO; -TRAM50TA2 PO; +TRM50T PO
--- NOTE | 2019-04-24 12:13 | NUR ---
ATTEMPT TO CALL PT BACK ET PT NOT IN WAITING ROOM. REGISTRATION THINKS SHE HAS LEFT.
== END 2019-04-24 12:13 | disposition left against medical advice (07) ==
LOC: EDUNIT# 11:39 → ER 11:40
DX: S69.91XA Unspecified injury of right wrist, hand and finger(s), initial encounter (principal); R07.9 Chest pain, unspecified; X58.XXXA Exposure to other specified factors, initial encounter

== ENCOUNTER 2019-07-17 18:17 | Emergency (ER) | payer MEDICAID ==
[~2019-07-17] VITALS: Ht 154.9 cm; Wt 95.0 kg
[~2019-07-17 18:17] MED LIST changes: -HYDR-3812 PO; -OMEP-280 PO; +OMEP20CA18 PO; -VALA1000; +VALA10007
--- NOTE | 2019-07-17 19:15 | Diagnostic Imaging Report ---
EXAMINATION: Chest 1 view HISTORY: Chest pain COMPARISON: 03/30/2019 FINDINGS: Right port catheter tip terminates in the superior vena cava. Loop recorder is present projecting over the left chest. The lungs are clear. No edema. No pneumonia. No pleural effusion. No pneumothorax. Heart is normal in size. IMPRESSION: 1. Clear lungs. Dictated by: Dictated on workstation # [id number]
[2019-07-17 19:27] LABS: BASOPHILS % (AUTO) 0 % (0-10); EOSINOPHILS # (AUTO) 0.2 10^3/uL (0.0-0.3); EOSINOPHILS % (AUTO) 2 % (0-10); HEMATOCRIT 40 % (35-52); HEMOGLOBIN 13.1 G/DL (11.5-16.0); LYMPHOCYTES # (AUTO) 3.3 X 10^3 (1.0-4.0); LYMPHOCYTES % (AUTO) 37 % (12-44); MEAN CORPUSCULAR HEMOGLOBIN 28 PG (25-34); MEAN CORPUSCULAR HGB CONC 33 G/DL (32-36); MEAN CORPUSCULAR VOLUME 87 FL (80-99); MEAN PLATELET VOLUME 10.1 FL (7.4-10.4); MONOCYTES # (AUTO) 0.6 X 10^3 (0.0-1.0); MONOCYTES % (AUTO) 6 % (0-12); NEUTROPHILS # (AUTO) 4.8 X 10^3 (1.8-7.8); NEUTROPHILS % (AUTO) 55 % (42-75); PLATELET COUNT 316 10^3/uL (130-400); RED CELL DISTRIBUTION WIDTH 16.3 % (10.0-14.5); WHITE BLOOD COUNT 8.8 10^3/uL (4.3-11.0)
[2019-07-17 19:31] LABS: SMEAR SCAN COMMENT YES
--- NOTE | 2019-07-17 19:32 | ED Chest Pain ---
General Chief Complaint: Cardiac/General Problems Stated Complaint: HEART PALPITATIONS CAUSING SOB Nursing Sepsis Screen: No Definite Risk Source: patient Exam Limitations: no limitations History of Present Illness Date Seen by Provider: Jul 17, 2019 Time Seen by Provider: 19:30 Initial Comments To ER with reports of palpitations that caused her to be short of breath because of a sharp stabbing chest pain about 3 PM today. This was right sided. She also had a right sided [place] placed last week. Severity/Quality: moderate Location: central Radiation: no radiation Activities at Onset: none ASA po POWERTRAIN DESIGN ENGINEER: No NTG SL POWERTRAIN DESIGN ENGINEER: No Associated Symptoms: shortness of breath Allergies and Home Medications Allergies Coded Allergies: latex (Verified Allergy, Severe, BLISTERS, 08/24/17) penicillin (Verified Allergy, Severe, ITCHING, 08/24/17) Sulfa (Sulfonamide Antibiotics) (Verified Allergy, Unknown, RASH, 08/24/17) Home Medications Cyclobenzaprine HCl 10 Mg Tablet, 10 MG PO Q8H Prescribed by: JUAN GONZALEZ on 11/02/182328 Gabapentin 300 Mg Capsule, 300 MG PO 0800,1200, (Reported) Lurasidone HCl 60 Mg Tablet, 60 MG PO for ANXIETY, (Reported) Meloxicam 15 Mg Tablet, 15 MG PO DAILY Prescribed by: JUAN GONZALEZ on 11/02/182328 Meloxicam 15 Mg Tablet, 15 MG PO DAILY Prescribed by: JUAN GONZALEZ on 01/16/192257 Tizanidine HCl 4 Mg Capsule, 4 MG PO TID Prescribed by: JUAN GONZALEZ on 01/16/192257 Patient Home Medication List Home Medication List Reviewed: Yes Review of Systems Review of Systems Constitutional: see HPI; No chills, No fever EENTM: No Symptoms Reported Respiratory: No Symptoms Reported Cardiovascular: See HPI, Chest Pain Genitourinary: No Symptoms Reported Musculoskeletal: no symptoms reported Skin: no symptoms reported Psychiatric/Neurological: No Symptoms Reported Endocrine: No Symptoms Reported Past Xtnonlj-Fxqclx-Tkrsxd Hx Patient Social History Alcohol Use: Denies Use Number of Drinks Today: II Alcohol Beverage of Choice: Vodka, Other Recreational Drug Use: No Drug of Choice: CHRONIC OPIATE USE/ABUSE AND OVERDOSES Smoking Status: Current Everyday Smoker Type Used: Cigarettes 2nd Hand Smoke Exposure: Yes Recent Foreign Travel: No Contact w/Someone Who Travel: No Recent Infectious Disease Expo: No Recent Hopitalizations: No Immunizations Up To Date Tetanus Booster (TDap): Less than 5yrs PED Vaccines UTD: Yes Date of Pneumonia Vaccine: Feb 26, 2015 Date of Influenza Vaccine: Jan 17, 2018 Seasonal Allergies Seasonal Allergies: No Past Medical History Surgeries: Yes (Loop Recorder, R PAC) Cardiac, Orthopedic, 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, Vascular Surgery Respiratory: No Asthma Currently Using CPAP: No Currently Using BIPAP: No Cardiac: Yes (PFO) Congenital Heart Disease, Deep Vein Thrombosis, High Cholesterol, Palpitations Neurological: Yes Seizure Disorder, Stroke 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 Disorders: Yes (MENORRHAGIA) Female 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: 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 Sexually Transmitted Disease: No HIV/AIDS: No Genitourinary: Yes Kidney Stones, UTI-Chronic Gastrointestinal: Yes Irritable Bowel Musculoskeletal: Yes Degenerate Disk Disease, Foot Drop, Scoliosis, Chronic Back Pain, Fractures Endocrine: No Diabetes, Non-Insulin dep HEENT: No Loss of Vision: Bilateral Hearing Impairment: Denies Cancer: No Psychosocial: Yes (D.I.D.) Anxiety, PTSD, Bipolar Integumentary: No Herpes Blood Disorders: Yes (HX OF HYPERCOLAGUABLE STATE) Adverse Reaction/Blood Tranf: No (N/A) Family Medical History Antiphospholipid syndrome 19 MOTHER Diabetes mellitus 19 FATHER G8 BROTHER FH: aneurysm 19 FATHER FH: lupus 19 MOTHER FHx: congestive heart failure 19 FATHER FHx: renal failure 19 MOTHER Heart murmur 19 MOTHER Lupus anticoagulant disorder 19 MOTHER Patent foramen ovale 19 FATHER Barry syndrome G8 SISTER No Pertinent Family Hx Physical Exam Vital Signs Vital Signs - First Documented 07/17/19 18:35 Temp 37.1 Pulse 98 Resp 18 B/P (MAP) 124/69 (87) Capillary Refill : Less Than 3 Seconds Height, Weight, BMI Height: 5'4.00" Weight: 189lbs. 9.0oz. 85.037287ze; 39.00 BMI Method:Stated General Appearance: No Apparent Distress, WD/WN Neck: Full Range of Motion, Normal Inspection Respiratory: No Accessory Muscle Use, No Respiratory Distress Cardiovascular: Regular Rate, Rhythm, Normal Peripheral Pulses, Other (she is not hypoxic or tachycardic. Oxygen saturation 100% room air, heart rate 89, blood pressure 138/82. PE is always within the differential but appears unlikely based on clinical exam. Her d-dimer would be elevated if we did that today given her recent surgery. She's had 11 CT scans in the past 2 years here alone not counting what she's had another hospital's. Basic of radiation exposure safety I would prefer not to image her again today.) Gastrointestinal: Normal Bowel Sounds, Non Tender, Soft Extremity: Normal Range of Motion; No Inflammation Neurologic/Psychiatric: Alert, Oriented x3 Skin: Normal Color, Warm/Dry Progress/Results/Core Measures Results/Orders Lab Results Laboratory Tests Test 07/17/19 19:08 07/17/19 19:34 Range/Units White Blood Count 8.8 4.3-11.0 10^3/uL Red Blood Count 4.61 4.35-5.85 10^6/uL Hemoglobin 13.1 11.5-16.0 G/DL Hematocrit 40 35-52 % Mean Corpuscular Volume 87 80-99 FL Mean Corpuscular Hemoglobin 28 25-34 PG Mean Corpuscular Hemoglobin Concent 33 32-36 G/DL Red Cell Distribution Width 16.3 H 10.0-14.5 % Platelet Count 316 130-400 10^3/uL Mean Platelet Volume 10.1 7.4-10.4 FL Neutrophils (%) (Auto) 55 42-75 % Lymphocytes (%) (Auto) 37 12-44 % Monocytes (%) (Auto) 6 0-12 % Eosinophils (%) (Auto) 2 0-10 % Basophils (%) (Auto) 0 0-10 % Neutrophils # (Auto) 4.8 1.8-7.8 X 10^3 Lymphocytes # (Auto) 3.3 1.0-4.0 X 10^3 Monocytes # (Auto) 0.6 0.0-1.0 X 10^3 Eosinophils # (Auto) 0.2 0.0-0.3 10^3/uL Basophils # (Auto) 0.0 0.0-0.1 10^3/uL Sodium Level 139 135-145 MMOL/L Potassium Level 3.5 L 3.6-5.0 MMOL/L Chloride Level 107 98-107 MMOL/L Carbon Dioxide Level 19 L 21-32 MMOL/L Anion Gap 13 5-14 MMOL/L Glucose Level 71 70-105 MG/DL Calcium Level 9.5 8.5-10.1 MG/DL Corrected Calcium 9.1 8.5-10.1 MG/DL Total Protein 6.2 L 6.4-8.2 GM/DL Albumin 4.5 3.2-4.5 GM/DL Smear Scan YES My Orders Orders - LAWRENCE WHITESIDE APRN Cbc With Automated Diff (07/17/19 18:30) Magnesium (07/17/19 18:30) Chest 1 View, Ap/Pa Only (07/17/19 18:30) Ekg Tracing (07/17/19 18:30) Comprehensive Metabolic Panel (07/17/19 18:30) Myoglobin Serum (07/17/19 18:30) Protime With Inr (07/17/19 18:30) Partial Thromboplastin Time (07/17/19 18:30) O2 (07/17/19 18:30) Monitor-Rhythm Ecg Trace Only (07/17/19 18:30) Lipid Panel (07/18/19 06:00) Ed Iv/Invasive Line Start (07/17/19 18:30) BNP (07/17/19 18:30) Troponin I (07/17/19 18:30) Ua Culture If Indicated (07/17/19 18:56) Drug Screen Stat (Urine) (07/17/19 18:56) Vital Signs/I&O 07/17/19 18:35 Temp 37.1 Pulse 98 Resp 18 B/P (MAP) 124/69 (87) Blood Pressure Mean: 87 Departure Communication (Admissions) We did interrogate the [employer]tronic device, no rate related events detected to support her symptoms. Impression Primary Impression: Palpitations Disposition: 01 HOME, SELF-CARE Condition: Stable Departure-Patient Inst. Decision time for Depature: 19:45 Referrals: JOLIE NUNO (PCP) Primary Care Physician [facility] (Family) Primary Care Physician Patient Instructions: Palpitations (DC) Add. Discharge Instructions: 1. Return to ER for any concerns 2. Follow up with your doctor this week. Call tomorrow for an appointment. All discharge instructions reviewed with patient and/or family. Voiced understanding. LAWRENCE WHITESIDE APRN Jul 17, 2019 19:32
[2019-07-17 19:40] LABS: ALBUMIN 4.5 GM/DL (3.2-4.5); CHLORIDE 107 MMOL/L (98-107); POTASSIUM 3.5 MMOL/L (3.6-5.0); SODIUM 139 MMOL/L (135-145)
[2019-07-17 19:41] LABS: CALCIUM 9.5 MG/DL (8.5-10.1)
[2019-07-17 19:42] LABS: GLUCOSE 71 MG/DL (70-105); TOTAL PROTEIN 6.2 GM/DL (6.4-8.2)
[2019-07-17 19:43] LABS: CARBON DIOXIDE 19 MMOL/L (21-32)
[2019-07-17 19:43] LABS: BILIRUBIN,URINE NEGATIVE (NEGATIVE); CLARITY,URINE CLEAR; COLOR,URINE YELLOW; GLUCOSE, URINE (UA) NEGATIVE (NEGATIVE); KETONES,URINE NEGATIVE (NEGATIVE); LEUKOCYTE ESTERASE ,URINE TRACE (NEGATIVE); NITRITE,URINE NEGATIVE (NEGATIVE); PROTEIN,URINE NEGATIVE (NEGATIVE)
[2019-07-17 19:44] LABS: BILIRUBIN,TOTAL 0.2 MG/DL (0.1-1.0)
[2019-07-17 19:45] LABS: PROTHROMBIN TIME PATIENT 13.6 SEC (12.2-14.7)
[2019-07-17 19:46] LABS: ALKALINE PHOSPHATASE 47 U/L (40-136); CREATININE SERUM 0.76 MG/DL (0.60-1.30); GFR ESTIMATED > 60
[2019-07-17 19:47] LABS: BUN/CREATININE RATIO 12
[2019-07-17 19:48] LABS: MAGNESIUM 1.9 MG/DL (1.6-2.4)
[2019-07-17 19:49] LABS: ALANINE AMINOTRANSFERASE 10 U/L (0-55)
[2019-07-17 19:54] LABS: BACTERIA,URINE TRACE /HPF
[2019-07-17 19:55] LABS: AMORPHOUS SEDIMENT,UR FEW AMOR URATES /LPF
[2019-07-17 20:07] LABS: AMPHETAMINE SCREEN, URINE NEGATIVE (NEGATIVE); BARBITURATE SCREEN URINE NEGATIVE (NEGATIVE); BENZODIAZEPINES SCREEN URINE NEGATIVE (NEGATIVE); CANNABINOID SCREEN, URINE NEGATIVE (NEGATIVE); COCAINE SCREEN URINE NEGATIVE (NEGATIVE); METHADONE STAT NEGATIVE (NEGATIVE); METHAMPHETAMINE SCREEN URINE S NEGATIVE (NEGATIVE); OPIATE SCREEN URINE POSITIVE (NEGATIVE); OXYCODONE STAT NEGATIVE (NEGATIVE); PROPOXYPHENE STAT NEGATIVE (NEGATIVE); TRICYCLIC ANTIDEPRESSANTS SCRE NEGATIVE (NEGATIVE)
[2019-07-17 20:27] VITALS: BP 125/74
== END 2019-07-17 20:27 | disposition home or self-care (01) ==
LOC: EDUNIT# 18:17 → ER 18:28
DX: R00.2 Palpitations (principal); F41.9 Anxiety disorder, unspecified; F31.9 Bipolar disorder, unspecified; F17.210 Nicotine dependence, cigarettes, uncomplicated; E11.9 Type 2 diabetes mellitus without complications; E78.00 Pure hypercholesterolemia, unspecified; G40.909 Epilepsy, unspecified, not intractable, without status epilepticus; Z88.0 Allergy status to penicillin; Z88.1 Allergy status to other antibiotic agents; Z88.2 Allergy status to sulfonamides; Z86.73 Personal history of transient ischemic attack (TIA), and cerebral infarction without residual deficits; Z82.49 Family history of ischemic heart disease and other diseases of the circulatory system; J45.909 Unspecified asthma, uncomplicated; Z87.74 Personal history of (corrected) congenital malformations of heart and circulatory system; Z86.718 Personal history of other venous thrombosis and embolism
CPT/HCPCS: 36415; 71045; 80053; 80306; 81000; 83735; 83874; 83880; 84484; 85025; 85610; 85730; 93005; 93041

== ENCOUNTER 2019-08-17 17:39 | Emergency (ER) | payer MEDICAID ==
[~2019-08-17] VITALS: Ht 154 cm; Wt 92.2 kg
--- NOTE | 2019-08-17 17:49 | ED General ---
General Chief Complaint: Neurological Problems Stated Complaint: SEIZURE Source of Information: Patient Exam Limitations: No Limitations History of Present Illness Date Seen by Provider: August 17, 2019 Time Seen by Provider: 17:47 Initial Comments To ER with seizure-like activity. She vomited which is her typical aura. She then had a 3 minute seizure. She takes Lamictal for history of seizures. She complains of some neck pain because she fell. She did hit her head. She is on Eliquis as for history of DVT. Timing/Duration: 1/2 Hour Severity: Moderate Associated Systoms: Chest Pain Allergies and Home Medications Allergies Coded Allergies: latex (Verified Allergy, Severe, BLISTERS, 08/24/17) penicillin (Verified Allergy, Severe, ITCHING, 08/24/17) Sulfa (Sulfonamide Antibiotics) (Verified Allergy, Unknown, RASH, 08/24/17) Home Medications Cyclobenzaprine HCl 10 Mg Tablet, 10 MG PO Q8H Prescribed by: JUAN GONZALEZ on 11/02/182328 Gabapentin 300 Mg Capsule, 300 MG PO 0800,1200, (Reported) Lurasidone HCl 60 Mg Tablet, 60 MG PO for ANXIETY, (Reported) Meloxicam 15 Mg Tablet, 15 MG PO DAILY Prescribed by: JUAN GONZALEZ on 11/02/182328 Meloxicam 15 Mg Tablet, 15 MG PO DAILY Prescribed by: JUAN GONZALEZ on 01/16/192257 Tizanidine HCl 4 Mg Capsule, 4 MG PO TID Prescribed by: JUAN GONZALEZ on 01/16/192257 Patient Home Medication List Home Medication List Reviewed: Yes Review of Systems Review of Systems Constitutional: see HPI EENTM: see HPI Respiratory: no symptoms reported Cardiovascular: no symptoms reported Genitourinary: no symptoms reported Musculoskeletal: no symptoms reported Skin: no symptoms reported Psychiatric/Neurological: No Symptoms Reported Hematologic/Lymphatic: No Symptoms Reported Past Mdohwna-Vesaax-Cbypxy Hx Patient Social History Alcohol Beverage of Choice: Vodka, Other Drug of Choice: CHRONIC OPIATE USE/ABUSE AND OVERDOSES Type Used: Cigarettes 2nd Hand Smoke Exposure: Yes Recent Hopitalizations: No Immunizations Up To Date Tetanus Booster (TDap): Less than 5yrs PED Vaccines UTD: Yes Date of Pneumonia Vaccine: Feb 26, 2015 Date of Influenza Vaccine: Jan 17, 2018 Seasonal Allergies Seasonal Allergies: No Past Medical History Surgeries: Yes (Loop Recorder, R PAC) Cardiac, Orthopedic, 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, Vascular Surgery Respiratory: No Asthma Currently Using CPAP: No Currently Using BIPAP: No Cardiac: Yes (PFO) Congenital Heart Disease, Deep Vein Thrombosis, High Cholesterol, Palpitations Neurological: Yes Seizure Disorder, Stroke 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 Disorders: Yes (MENORRHAGIA) Female 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 Sexually Transmitted Disease: No HIV/AIDS: No Genitourinary: Yes Kidney Stones, UTI-Chronic Gastrointestinal: Yes Irritable Bowel Musculoskeletal: Yes Degenerate Disk Disease, Foot Drop, Scoliosis, Chronic Back Pain, Fractures Endocrine: No Diabetes, Non-Insulin dep HEENT: No Loss of Vision: Bilateral Hearing Impairment: Denies Cancer: No Psychosocial: Yes (D.I.D.) Anxiety, PTSD, Bipolar Integumentary: No Herpes Blood Disorders: Yes (HX OF HYPERCOLAGUABLE STATE) Adverse Reaction/Blood Tranf: No (N/A) Family Medical History Antiphospholipid syndrome 19 MOTHER Diabetes mellitus 19 FATHER G8 BROTHER FH: aneurysm 19 FATHER FH: lupus 19 MOTHER FHx: congestive heart failure 19 FATHER FHx: renal failure 19 MOTHER Heart murmur 19 MOTHER Lupus anticoagulant disorder 19 MOTHER Patent foramen ovale 19 FATHER Barry syndrome G8 SISTER No Pertinent Family Hx Physical Exam Vital Signs Vital Signs - First Documented 08/17/19 08/17/19 17:41 19:01 Temp 37.2 Pulse 95 Resp 18 B/P (MAP) 116/84 (95) Pulse Ox 99 Capillary Refill : Height, Weight, BMI Height: 5'4.00" Weight: 189lbs. 9.0oz. 85.719084zz; 39.00 BMI Method:Stated General Appearance: No Apparent Distress, WD/WN, Other (in a rigid cervical collar) Eyes: Bilateral Eye Normal Inspection, Bilateral Eye PERRL, Bilateral Eye EOMI HEENT: PERRL/EOMI, Normal ENT Inspection Neck: Normal Inspection Respiratory: Normal Breath Sounds, No Accessory Muscle Use Cardiovascular: Regular Rate, Rhythm, Normal Peripheral Pulses Gastrointestinal: Normal Bowel Sounds, Non Tender, Soft Extremity: Normal Capillary Refill, Normal Inspection Neurologic/Psychiatric: Alert, Oriented x3 Skin: Normal Color, Warm/Dry Progress/Results/Core Measures Suspected Sepsis SIRS Temperature: Pulse: Respiratory Rate: Laboratory Tests 08/17/19 17:50: White Blood Count 8.6 Blood Pressure / Mean: Laboratory Tests 08/17/19 17:50: Creatinine 0.76, Platelet Count 315 Results/Orders Lab Results Laboratory Tests Test 08/17/19 17:50 Range/Units White Blood Count 8.6 4.3-11.0 10^3/uL Red Blood Count 4.75 4.35-5.85 10^6/uL Hemoglobin 13.1 11.5-16.0 G/DL Hematocrit 41 35-52 % Mean Corpuscular Volume 86 80-99 FL Mean Corpuscular Hemoglobin 28 25-34 PG Mean Corpuscular Hemoglobin Concent 32 32-36 G/DL Red Cell Distribution Width 14.9 H 10.0-14.5 % Platelet Count 315 130-400 10^3/uL Mean Platelet Volume 10.1 7.4-10.4 FL Neutrophils (%) (Auto) 61 42-75 % Lymphocytes (%) (Auto) 30 12-44 % Monocytes (%) (Auto) 7 0-12 % Eosinophils (%) (Auto) 1 0-10 % Basophils (%) (Auto) 0 0-10 % Neutrophils # (Auto) 5.2 1.8-7.8 X 10^3 Lymphocytes # (Auto) 2.6 1.0-4.0 X 10^3 Monocytes # (Auto) 0.6 0.0-1.0 X 10^3 Eosinophils # (Auto) 0.1 0.0-0.3 10^3/uL Basophils # (Auto) 0.0 0.0-0.1 10^3/uL Sodium Level 138 135-145 MMOL/L Potassium Level 4.3 3.6-5.0 MMOL/L Chloride Level 107 98-107 MMOL/L Carbon Dioxide Level 18 L 21-32 MMOL/L Anion Gap 13 5-14 MMOL/L Blood Urea Nitrogen 8 7-18 MG/DL Creatinine 0.76 0.60-1.30 MG/DL Estimat Glomerular Filtration Rate > 60 BUN/Creatinine Ratio 11 Glucose Level 95 70-105 MG/DL Calcium Level 9.9 8.5-10.1 MG/DL My Orders Orders - LAWRENCE WHITESIDE DETECTIVE [place] Cbc With Automated Diff (08/17/19 17:44) Basic Metabolic Panel (08/17/19 17:44) Ct Head/Cervical Spine Wo (08/17/19 17:44) Rx-Cyclobenzaprine Tablet (Rx-Flexeril T (08/17/19 18:30) Vital Signs/I&O 08/17/19 08/17/19 17:41 19:01 Temp 37.2 37.2 Pulse 95 95 Resp 18 18 B/P (MAP) 116/84 (95) 116/84 (95) Pulse Ox 99 Capillary Refill : Departure Communication (Admissions) Cervical collar off now, 1858. Impression Primary Impression: Cervical strain Qualified Codes: S16.1XXA - Strain of muscle, fascia and tendon at neck level, initial encounter Disposition: HOME, SELF-CARE Condition: Stable Departure-Patient Inst. Decision time for Depature: 18:30 Referrals: JOLIE NUNO (PCP) Primary Care Physician [facility] (Family) Primary Care Physician Patient Instructions: Neck Sprain (DC), Cervical Muscle Strain (DC) Add. Discharge Instructions: 1. Return to ER for any concerns 2. All discharge instructions reviewed with patient and/or family. Voiced understanding. LAWRENCE WHITESIDE [employer] [place] August 17, 2019 17:49
[2019-08-17 18:00] LABS: BASOPHILS % (AUTO) 0 % (0-10); EOSINOPHILS # (AUTO) 0.1 10^3/uL (0.0-0.3); EOSINOPHILS % (AUTO) 1 % (0-10); HEMATOCRIT 41 % (35-52); HEMOGLOBIN 13.1 G/DL (11.5-16.0); LYMPHOCYTES # (AUTO) 2.6 X 10^3 (1.0-4.0); LYMPHOCYTES % (AUTO) 30 % (12-44); MEAN CORPUSCULAR HEMOGLOBIN 28 PG (25-34); MEAN CORPUSCULAR HGB CONC 32 G/DL (32-36); MEAN CORPUSCULAR VOLUME 86 FL (80-99); MEAN PLATELET VOLUME 10.1 FL (7.4-10.4); MONOCYTES # (AUTO) 0.6 X 10^3 (0.0-1.0); MONOCYTES % (AUTO) 7 % (0-12); NEUTROPHILS # (AUTO) 5.2 X 10^3 (1.8-7.8); NEUTROPHILS % (AUTO) 61 % (42-75); PLATELET COUNT 315 10^3/uL (130-400); RED CELL DISTRIBUTION WIDTH 14.9 % (10.0-14.5); WHITE BLOOD COUNT 8.6 10^3/uL (4.3-11.0)
[2019-08-17 18:19] LABS: CHLORIDE 107 MMOL/L (98-107); POTASSIUM 4.3 MMOL/L (3.6-5.0); SODIUM 138 MMOL/L (135-145)
[2019-08-17 18:20] LABS: CALCIUM 9.9 MG/DL (8.5-10.1); GLUCOSE 95 MG/DL (70-105)
[2019-08-17 18:22] LABS: CARBON DIOXIDE 18 MMOL/L (21-32)
[2019-08-17 18:24] LABS: CREATININE SERUM 0.76 MG/DL (0.60-1.30); GFR ESTIMATED > 60
[2019-08-17 18:25] LABS: BUN/CREATININE RATIO 11
[2019-08-17] MEDS ORDERED: RX-CYCLOBENZAPRINE 10 MG (FLEXERIL) TAB PPK#3 PO STA (18:30)
--- NOTE | 2019-08-17 18:48 | Diagnostic Imaging Report ---
PROCEDURE: CT head and CT cervical spine without contrast. TECHNIQUE: Multiple contiguous axial images were obtained through the brain and cervical spine without the use of intravenous contrast. Sagittal and coronal reformations through the cervical spine were then performed. Auto Exposure Controls were utilized during the CT exam to meet ALARA standards for radiation dose reduction. INDICATION: Seizure. Head injury. Head and neck pain. COMPARISON: CTA head and neck 01/16/2019. FINDINGS: CT head: No intracranial hemorrhage, mass effect, hydrocephalus or extra-axial fluid collection. No CT evidence of territorial infarction. Osseous structures are intact. The visualized paranasal sinuses and mastoids are clear. CT cervical spine: Normal alignment. Vertebral body heights are preserved. No fractures. No evidence of high-grade spinal canal stenosis on soft tissue windows. The lung apices are clear with partially visualized right CVC. IMPRESSION: No acute intracranial or cervical spine CT findings. Dictated by: Dictated on workstation # [id number]
--- NOTE | 2019-08-17 18:57 | NUR ---
C Collar removed by Carissa Joe APRN
[2019-08-17 19:01] VITALS: BP 116/84
== END 2019-08-17 19:01 | disposition home or self-care (01) ==
LOC: EDUNIT# 17:39 → ER 17:40
DX: S16.1XXA Strain of muscle, fascia and tendon at neck level, initial encounter (principal); F41.9 Anxiety disorder, unspecified; F31.9 Bipolar disorder, unspecified; F43.10 Post-traumatic stress disorder, unspecified; E11.9 Type 2 diabetes mellitus without complications; Q24.9 Congenital malformation of heart, unspecified; M54.9 Dorsalgia, unspecified; G89.29 Other chronic pain; Z77.22 Contact with and (suspected) exposure to environmental tobacco smoke (acute) (chronic); Z91.040 Latex allergy status; Z88.0 Allergy status to penicillin; Z88.2 Allergy status to sulfonamides; Z86.718 Personal history of other venous thrombosis and embolism; Z79.01 Long term (current) use of anticoagulants; Z86.73 Personal history of transient ischemic attack (TIA), and cerebral infarction without residual deficits; W01.198A Fall on same level from slipping, tripping and stumbling with subsequent striking against other object, initial encounter
CPT/HCPCS: 36415; 70450; 72125; 80048; 85025

== ENCOUNTER → 2019-10-08 | Outpatient (CLI) | payer MEDICARE, MEDICAID ==
[~2019-10-08] MED LIST changes: +CARB-88 PO; +DICL100G18 TP; +LURA80TA3 PO; +QUET25TA PO
== END ==
LOC: SDC 13:06
PROVIDERS: ATTEND Obstetrics & Gynecology
DX: N64.52 Nipple discharge (principal)
CPT/HCPCS: 36415; 84146

== ENCOUNTER → 2019-10-10 | Outpatient (CLI) | payer MEDICARE, MEDICAID ==
--- NOTE | 2019-10-10 18:47 | Diagnostic Imaging Report ---
INDICATION: Right breast lump and right nipple discharge. COMPARISON: Correlation made with diagnostic study of earlier the same day. EXAMINATION: Sonographic interrogation of the area of lump at the 4-5 o'clock location of the right breast was performed. FINDINGS: No sonographic abnormality is seen. No solid or cystic mass is detected. In addition, the retroareolar region of the right breast was evaluated due to nipple discharge. No ductal dilatation, intraductal mass or other abnormality is detected. IMPRESSION: Unremarkable right breast ultrasound. No suspicious abnormality is detected. Continued clinical and self breast exam is recommended of the area of palpable abnormality. ACR BI-RADS Category 1: Negative. Result letter will be mailed to the patient. Note: At least 10% of breast cancer is not imaged by mammography. Dictated by: Dictated on workstation # [id number]
--- NOTE | 2019-10-10 18:54 | Diagnostic Imaging Report ---
INDICATION: Palpable lump in the lower medial right breast as well as right nipple discharge. COMPARISON: Correlation is made with prior mammogram of 08/26/2018. EXAMINATION: 2D and 3D bilateral diagnostic mammography was performed with CAD. FINDINGS: Both breasts are heterogeneously dense, limiting the sensitivity of mammography. Cardiac monitoring device overlies the medial left breast. No mass or malignant appearing microcalcifications are seen. Qsisxy-x-Cvyd hub is located in the right axilla. IMPRESSION: No mammographic features suspicious for malignancy are identified. Even so, directed sonographic interrogation of the area of palpable abnormality in the medial right breast is recommended. In addition, sonographic interrogation of the retroareolar right breast will be performed due to nipple discharge. ACR BI-RADS Category 0: Incomplete. (Needs additional imaging evaluation). Result letter will be mailed to the patient. Note: At least 10% of breast cancer is not imaged by mammography. Dictated by: Dictated on workstation # [id number]
== END ==
LOC: RAD 14:10
PROVIDERS: ATTEND Obstetrics & Gynecology
DX: Z12.31 Encounter for screening mammogram for malignant neoplasm of breast (principal); N63.14 Unspecified lump in the right breast, lower inner quadrant; N64.52 Nipple discharge; N64.4 Mastodynia
CPT/HCPCS: 76642; 77066; G0279; 77062

== ENCOUNTER 2019-11-19 13:00 | Outpatient (RCR) | payer MEDICAID ==
[2019-09-10 08:40] VITALS: BP 114/85
[2019-10-08 13:23] VITALS: BP 132/90
[~2019-11-19] VITALS: Ht 154.9 cm; Wt 90.0 kg
[~2019-11-19 13:00] MED LIST changes: +HEParin (CENTRAL IV FLUSH) 500 UNIT/5 ML SYR IV ONE; +HEParin (CENTRAL IV FLUSH) 500 UNIT/5 ML SYR ONE
[2019-11-19] MEDS ORDERED: HEParin (CENTRAL IV FLUSH) 500 UNIT/5 ML SYR ONE (13:14)
[2019-11-19] MEDS ORDERED: HEParin (CENTRAL IV FLUSH) 500 UNIT/5 ML SYR IV ONE (13:30)
[2019-11-19 13:40] VITALS: BP 128/87
== END 2019-12-09 | disposition home or self-care (01) ==
LOC: SDC 13:00
PROVIDERS: ATTEND Nurse Practitioner Family
DX: Z45.2 Encounter for adjustment and management of vascular access device (principal); Z95.828 Presence of other vascular implants and grafts
CPT/HCPCS: 96523

== ENCOUNTER 2020-01-30 00:27 | Emergency (ER) | payer MEDICARE, MEDICAID ==
[~2020-01-30] VITALS: Ht 154.9 cm; Wt 86.0 kg
[~2020-01-30 00:27] MED LIST changes: +ASPI-1238 PO; -ASPI-983 PO; -HEParin (CENTRAL IV FLUSH) 500 UNIT/5 ML SYR IV ONE; -HEParin (CENTRAL IV FLUSH) 500 UNIT/5 ML SYR ONE; -OXYC-465 PO; +OXYC-556 PO
[2020-01-30 00:53] VITALS: BP 141/88
[2020-01-30 01:24] LABS: BASOPHILS # (AUTO) 0.1 10^3/uL (0.0-0.1); BASOPHILS % (AUTO) 1 % (0-10); EOSINOPHILS % (AUTO) 0 % (0-10); HEMATOCRIT 39 % (35-52); HEMOGLOBIN 12.7 g/dL (11.5-16.0); LYMPHOCYTES # (AUTO) 4.3 10^3/uL (1.0-4.0); LYMPHOCYTES % (AUTO) 45 % (12-44); MEAN CORPUSCULAR HEMOGLOBIN 28 pg (25-34); MEAN CORPUSCULAR HGB CONC 33 g/dL (32-36); MEAN CORPUSCULAR VOLUME 87 fL (80-99); MEAN PLATELET VOLUME 9.5 fL (9.0-12.2); MONOCYTES # (AUTO) 0.6 10^3/uL (0.0-1.0); MONOCYTES % (AUTO) 6 % (0-12); NEUTROPHILS # (AUTO) 4.6 10^3/uL (1.8-7.8); NEUTROPHILS % (AUTO) 48 % (42-75); PLATELET COUNT 386 10^3/uL (130-400); WHITE BLOOD COUNT 9.6 10^3/uL (4.3-11.0)
[2020-01-30] MEDS ORDERED: KETOROLAC 30 MG/ML VIAL IVP ONE (01:30)
--- NOTE | 2020-01-30 01:30 | NUR ---
PT REFUSED TORADOL IV MEDICATION STATING, "I JUST DON'T THINK THAT WILL HELP. I DON'T THINK THIS IS A PAIN ISSUE."
[2020-01-30 01:37] LABS: ALBUMIN 4.3 GM/DL (3.2-4.5)
[2020-01-30 01:38] LABS: CHLORIDE 105 MMOL/L (98-107); POTASSIUM 3.9 MMOL/L (3.6-5.0); SODIUM 137 MMOL/L (135-145)
[2020-01-30 01:39] LABS: CALCIUM 9.5 MG/DL (8.5-10.1)
[2020-01-30 01:40] LABS: GLUCOSE 103 MG/DL (70-105); PROTHROMBIN TIME PATIENT 13.3 SEC (12.2-14.7); TOTAL PROTEIN 7.6 GM/DL (6.4-8.2)
[2020-01-30 01:41] LABS: CARBON DIOXIDE 21 MMOL/L (21-32)
[2020-01-30 01:42] LABS: BILIRUBIN,TOTAL 0.3 MG/DL (0.1-1.0)
[2020-01-30 01:43] LABS: ALKALINE PHOSPHATASE 43 U/L (40-136)
[2020-01-30 01:44] LABS: CREATININE SERUM 0.82 MG/DL (0.60-1.30); GFR ESTIMATED > 60
[2020-01-30 01:45] LABS: BUN/CREATININE RATIO 12
[2020-01-30 01:46] LABS: ALANINE AMINOTRANSFERASE 11 U/L (0-55); MAGNESIUM 1.9 MG/DL (1.6-2.4)
--- NOTE | 2020-01-30 02:19 | ED Cardiac General ---
History of Present Illness General Chief Complaint: Chest Pain Stated Complaint: DENTAL PAIN Source: patient (GERALD ARTEAGA MED STUDENT) History of Present Illness Date Seen by Provider: Jan 30, 2020 Time Seen by Provider: 01:05 Initial Comments Kaya is a 34 yo F with history of RLE weakness s/p fasciotomy and prior DVT, PFO, and stroke, who presents to the ER with complaint of chest pain. The patient has no residual deficits from prior stroke. She states she had dental fillings at 2 pm today in the right mouth with local anesthesia. She complains of a headache beginning at 6pm today which worsened with pain radiating down the neck. She states since 10pm she had right face and left arm numbness, and complains of sharp burning sensations traveling down her neck to her left upper back through to the chest, to the left arm, and to the left axilla. The patient took tylenol and ibuprofen without improvement of pain. She denies slurred speech, weakness, and vomiting. (GERALD ARTEAGA STUDENT) Allergies and Home Medications Allergies Coded Allergies: latex (Verified Allergy, Severe, BLISTERS, 08/24/17) penicillin (Verified Allergy, Severe, ITCHING, 08/24/17) Sulfa (Sulfonamide Antibiotics) (Verified Allergy, Unknown, RASH, 08/24/17) Home Medications Carbamazepine 200 Mg Tab.er.12h, 200 MG PO BID, (Reported) Diclofenac Sodium 100 Gm Gel..gram., 1 EA TP UD PRN for PAIN, (Reported) Lurasidone HCl 80 Mg Tablet, 80 MG PO HS, (Reported) Quetiapine Fumarate 25 Mg Tablet, 25 MG PO DAILY, (Reported) Patient Home Medication List Home Medication List Reviewed: Yes (MARIA ELENA MORA MD) Review of Systems Review of Systems Constitutional: No chills, No fever Respiratory: Denies Cough, Denies Shortness of Air Cardiovascular: Chest Pain Musculoskeletal: back pain Psychiatric/Neurological: Headache, Numbness (right face, left arm), Paresthesi a, Weakness (chronic RLE. ) (GERALD ARTEAGA STUDENT) Past Jrmttts-Jsehgg-Rntiun Hx Patient Social History Alcohol Beverage of Choice: Vodka, Other Drug of Choice: CHRONIC OPIATE USE/ABUSE AND OVERDOSES Type Used: Cigarettes 2nd Hand Smoke Exposure: Yes Recent Foreign Travel: No Contact w/Someone Who Travel: No Recent Hopitalizations: No (GERALD ARTEAGA STUDENT) Immunizations Up To Date Tetanus Booster (TDap): Less than 5yrs PED Vaccines UTD: Yes Date of Pneumonia Vaccine: Feb 26, 2015 Date of Influenza Vaccine: Jan 17, 2018 (GERALD ARTEAGA STUDENT) Seasonal Allergies Seasonal Allergies: No (GERALD ARTEAGA) Past Medical History Surgeries: Yes (Loop Recorder, R PAC) Cardiac, Orthopedic, 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, Vascular Surgery Respiratory: No Asthma Currently Using CPAP: No Currently Using BIPAP: No Cardiac: Yes (PFO) Congenital Heart Disease, Deep Vein Thrombosis, High Cholesterol, Palpitations Neurological: Yes Seizure Disorder, Stroke 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 Disorders: Yes (MENORRHAGIA) Female 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 Sexually Transmitted Disease: No HIV/AIDS: No Genitourinary: Yes Kidney Stones, UTI-Chronic Gastrointestinal: Yes Irritable Bowel Musculoskeletal: Yes Degenerate Disk Disease, Foot Drop, Scoliosis, Chronic Back Pain, Fractures Endocrine: No Diabetes, Non-Insulin dep HEENT: No Loss of Vision: Bilateral Hearing Impairment: Denies Cancer: No Psychosocial: Yes (D.I.D.) Anxiety, PTSD, Bipolar Integumentary: No Herpes Blood Disorders: Yes (HX OF HYPERCOLAGUABLE STATE) Adverse Reaction/Blood Tranf: No (N/A) (GERALD ARTEAGA STUDENT) Family Medical History Antiphospholipid syndrome 19 MOTHER Diabetes mellitus 19 FATHER G8 BROTHER FH: aneurysm 19 FATHER FH: lupus 19 MOTHER FHx: congestive heart failure 19 FATHER FHx: renal failure 19 MOTHER Heart murmur 19 MOTHER Lupus anticoagulant disorder 19 MOTHER Patent foramen ovale 19 FATHER Barry syndrome G8 SISTER No Pertinent Family Hx (GERALD ARTEAGA STUDENT) Physical Exam Vital Signs Vital Signs - First Documented 01/30/20 00:53 Temp 36.6 Pulse 90 Resp 16 B/P (MAP) 141/88 (105) O2 Delivery Room Air (MARIA ELENA MORA MD) Vital Signs Capillary Refill : (GERALD ARTEAGA STUDENT) Height, Weight, BMI Height: 5'4.00" Weight: 189lbs. 9.0oz. 85.590761kt; 38.00 BMI Method:Stated General Appearance: WD/WN, Anxious HEENT: PERRL/EOMI Neck: Other (right cervical paraspinal tenderness from c6 to c8; upper thoracic paraspinal tenderness bilaterally. Stated deep pressure at paraspinal musculature at c7 reproduced burning pain in left arm.) Respiratory: Lungs Clear, Normal Breath Sounds, No Accessory Muscle Use, No Respiratory Distress Cardiovascular: Regular Rate, Rhythm, No Edema, No Gallop, No JVD, No Murmur, Normal Peripheral Pulses Neurologic/Psychiatric: Alert, Oriented x3; No Abnormal Cerebellar Tests, No Aphasia, No EOM Palsy, No Facial Droop; Motor Weakness (chronic RLE); No Sensory Deficit; Other (occasional faint tremor which she states is her normal.) Skin: Normal Color, Warm/Dry, Other (port in place right anterior chest ) Lymphatic: No Adenopathy (GERALD ARTEAGA MED STUDENT) Progress/Results/Core Measures Results/Orders Lab Results Laboratory Tests Test 01/30/20 01:15 01/30/20 02:17 Range/Units White Blood Count 9.6 4.3-11.0 10^3/uL Red Blood Count 4.50 3.80-5.11 10^6/uL Hemoglobin 12.7 11.5-16.0 g/dL Hematocrit 39 35-52 % Mean Corpuscular Volume 87 80-99 fL Mean Corpuscular Hemoglobin 28 25-34 pg Mean Corpuscular Hemoglobin Concent 33 32-36 g/dL Red Cell Distribution Width 15.4 H 10.0-14.5 % Platelet Count 386 130-400 10^3/uL Mean Platelet Volume 9.5 9.0-12.2 fL Immature Granulocyte % (Auto) 0 % Neutrophils (%) (Auto) 48 42-75 % Lymphocytes (%) (Auto) 45 H 12-44 % Monocytes (%) (Auto) 6 0-12 % Eosinophils (%) (Auto) 0 0-10 % Basophils (%) (Auto) 1 0-10 % Neutrophils # (Auto) 4.6 1.8-7.8 10^3/uL Lymphocytes # (Auto) 4.3 H 1.0-4.0 10^3/uL Monocytes # (Auto) 0.6 0.0-1.0 10^3/uL Eosinophils # (Auto) 0.0 0.0-0.3 10^3/uL Basophils # (Auto) 0.1 0.0-0.1 10^3/uL Immature Granulocyte # (Auto) 0.0 0.0-0.1 10^3/uL Prothrombin Time 13.3 12.2-14.7 SEC INR Comment 1.0 0.8-1.4 Activated Partial Thromboplast Time 39 H 24-35 SEC Sodium Level 137 135-145 MMOL/L Potassium Level 3.9 3.6-5.0 MMOL/L Chloride Level 105 98-107 MMOL/L Carbon Dioxide Level 21 21-32 MMOL/L Anion Gap 11 5-14 MMOL/L Blood Urea Nitrogen 10 7-18 MG/DL Creatinine 0.82 0.60-1.30 MG/DL Estimat Glomerular Filtration Rate > 60 BUN/Creatinine Ratio 12 Glucose Level 103 70-105 MG/DL Calcium Level 9.5 8.5-10.1 MG/DL Corrected Calcium 9.3 8.5-10.1 MG/DL Magnesium Level 1.9 1.6-2.4 MG/DL Total Bilirubin 0.3 0.1-1.0 MG/DL Aspartate Amino Transf (AST/SGOT) 14 5-34 U/L Alanine Aminotransferase (ALT/SGPT) 11 0-55 U/L Alkaline Phosphatase 43 40-136 U/L Myoglobin 33.3 10.0-92.0 NG/ML Troponin I < 0.028 < 0.028 <0.028 NG/ML Total Protein 7.6 6.4-8.2 GM/DL Albumin 4.3 3.2-4.5 GM/DL (MARIA ELENA MORA MD) My Orders Orders - MARIA ELENA MORA MD Cbc With Automated Diff (01/30/20:07) Magnesium (01/30/20:07) Chest 1 View, Ap/Pa Only (01/30/20:07) Ekg Tracing (01/30/20:07) Comprehensive Metabolic Panel (01/30/20:07) Myoglobin Serum (01/30/20:07) Protime With Inr (01/30/20:07) Partial Thromboplastin Time (01/30/20:07) O2 (01/30/20:07) Monitor-Rhythm Ecg Trace Only (01/30/20:07) Ed Iv/Invasive Line Start (01/30/20:07) Ketorolac Injection (Toradol Injection) (01/30/20 01:30) Troponin I (01/30/20 01:07) Troponin I (01/30/20 02:15) (MARIA ELENA MORA MD) Vital Signs/I&O 01/30/20 00:53 Temp 36.6 Pulse 90 Resp 16 B/P (MAP) 141/88 (105) O2 Delivery Room Air (MARIA ELENA MORA MD) Progress Progress Note : Time: :20 Progress Note Kaya is a 34 yo F who complains of a headache with neuropathic-like pain radiating to the chest and left arm, as well as reported intermittent numbness of the right face and left arm. These symptoms began after having dental fillings earlier today. (GERALD ARTEAGA MED STUDENT) Progress Note : Time: 02:38 Progress Note Patient was interviewed and examined by me. My understanding from the patient was that her primary concern was a pain in the mid thoracic spine region that radiated toward the chest. Cardiac work-up was pursued. Initial work-up was unremarkable. Toradol had been ordered for treatment of her pain, but she refused the Toradol. Patient had a stress test and echocardiogram performed within the last year, both of which were unremarkable. Neuro exam revealed no new focal deficits except report of some right-sided facial numbness. She did receive analgesic injections on the right side of her mouth today for the dental procedure. Her prior stroke deficits include some left-sided weakness which she reports were overcome with physical therapy. There is some subtle drooping of the left face which is overcome with facial movements. She indicated this was not new. Additionally she has right leg weakness from a fasciotomy which is unchanged. During my interview she gave me the impression that she had no new w eakness. She was primarily concerned about her pain. Toradol had been ordered, but she declined. I reentered the room to discuss her sensation of numbness further as she expressed frustration to the nurses that we were focused on the pain rather than the numbness. I was trying to elicit a more clear history about her concerns and new symptoms. She refused to communicate with me regarding her symptoms and instead was persistently complaining about unclear communication. I asked her to again explain her new and old symptoms so that I could listed them and sort them out more clearly. She refused to help me with this and continued to complain despite my efforts. I explained her that I needed clear information to help sort out her symptoms and that the complaining was not productive. She then requested to leave AGAINST MEDICAL ADVICE so that she could go to another hospital. She walked out of the ER after her port was removed and refused to sign the AMA papers. (MARIA ELENA MORA MD) Initial ECG Impression Date: Jan 30, 2020 Initial ECG Impression Time: 00:54 Initial ECG Rate: 91 Comment Sinus rhythm with no ST elevation or depression. No abnormal intervals or axis deviation. (MARIA ELENA MORA MD) Departure Impression Primary Impression: Atypical chest pain Additional Impression: Paresthesias Disposition: AGAINST MEDICAL ADVICE Condition: Against Medical Advice Departure-Patient Inst. Referrals: [facility] [place] Primary Care Physician I personally interviewed and examined this patient along with Gerald Arteaga MS3. I agree with MS 3 history, physical, and assessments except for otherwise noted. Exam: General: Alert, oriented, no acute distress Heart: Regular rate and rhythm without murmur Lungs: Clear to auscultation bilaterally Abdomen: Soft, nontender, nondistended Neuropsych: Subtle drooping of the left face stated as chronic, weakness of the right lower extremity stated as chronic, no other focal deficits appreciated. Alert, oriented Patient ultimately decided to leave AGAINST MEDICAL ADVICE. (MARIA ELENA MORA MD) GERALD ARTEAGA MED STUDENT Jan 30, 2020 02:19 MARIA ELENA MORA MD Jan 30, 2020 02:45
--- NOTE | 2020-01-30 02:35 | NUR ---
AFTER SPEAKING WITH PT DR. MORA REQUESTED AN AMA FORM BE TAKEN TO PT SHE REQUESTED TO LEAVE AGAINST MEDICAL ADVICE.
--- NOTE | 2020-01-30 02:37 | NUR ---
AFTER REMOVING RIGHT CHEST POWER PORT PT REFUSED TO SIGN AMA FORM. THIS WAS WITNESSED BY THIS ADULT NEUROLOGIST/RN AND HELEN YOUCREDIT MANAGER. DR. MORA NOTIFIED. SEE DR. MORA'S PROGRESS NOTE FOR FURTHER INFORMATION.
--- NOTE | 2020-01-30 07:44 | Diagnostic Imaging Report ---
INDICATION: Chest pain. Comparison with 07/17/2019. FINDINGS: Bibasilar atelectasis has developed. There does appear to be some patchy infiltrate in the right lower lobe as well. The heart is not enlarged. Upper lungs are clear with no evidence of pulmonary edema. Port-A-Cath on the right appears unchanged. IMPRESSION: Development of bilateral basilar atelectasis with probable consolidated infiltrate right lung base as well. Dictated by: Dictated on workstation # [id number]
== END 2020-01-30 02:37 | disposition left against medical advice (07) ==
LOC: EDUNIT# 00:27 → ER 00:31
DX: R07.89 Other chest pain (principal); R20.2 Paresthesia of skin; F41.9 Anxiety disorder, unspecified; F31.9 Bipolar disorder, unspecified; Z82.49 Family history of ischemic heart disease and other diseases of the circulatory system; Z83.3 Family history of diabetes mellitus; Z77.22 Contact with and (suspected) exposure to environmental tobacco smoke (acute) (chronic); Z88.0 Allergy status to penicillin; Z88.2 Allergy status to sulfonamides; Z91.040 Latex allergy status
CPT/HCPCS: 36415; 71045; 80053; 83735; 83874; 84484; 85025; 85610; 85730; 93005; 93041

== ENCOUNTER 2020-05-01 08:51 | Emergency (ER) | payer MEDICARE, MEDICAID ==
[~2020-05-01] VITALS: Ht 154 cm; Wt 83.4 kg
--- NOTE | 2020-05-01 09:25 | ED General ---
General Chief Complaint: Chest Wall Stated Complaint: ARM PN Nursing Triage Note: PT PRESENTS TO ED WITH COMPLAINTS OF R SIDED BREAST AND AXILLARY PAIN STARTING THIS AM WHEN SHE WOKE UP. REPORTS SHE HAD A BILATERALLY MASTECTOMY ON 04/01/21 Nursing Sepsis Screen: No Definite Risk Source of Information: Patient Exam Limitations: No Limitations History of Present Illness Date Seen by Provider: May 01, 2020 Time Seen by Provider: 09:00 Initial Comments Patient is a 34-year-old female who presents to the emergency department today with a chief complaint of right lateral chest wall/rib pain and right axillary pain. 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 She had bilateral mastectomies with filling hauler weaving replacement. Patient states that she has not taken pain medications within about 2 weeks. Patient states that she woke up with this pain and it hurts so badly that she had difficulty getting out of bed. Patient states that it hurts to move her right arm. Patient states that she has not had any fevers, chills, cough or congestion. No recent trauma. She thought maybe she had overused her right arm. She has not started chemotherapy yet. She will be followed by Dr. Christianson. Patient denies any GI or symptomatology. Patient denies any shortness of breath. She states it does hurt in her right ribs approximately ribs 7 and 8 to take a deep breath. All other review of systems reviewed and negative except as stated above. Timing/Duration: 1-3 Hours Severity: Severe Modifying Factors: improves with Immobilization; worse with Movement Associated Systoms: Denies Symptoms Allergies and Home Medications Allergies Coded Allergies: latex (Verified Allergy, Severe, BLISTERS, 08/24/17) penicillin (Verified Allergy, Severe, ITCHING, 08/24/17) Sulfa (Sulfonamide Antibiotics) (Verified Allergy, Unknown, RASH, 08/24/17) Home Medications Carbamazepine 200 Mg Tab.er.12h, 200 MG PO BID, (Reported) Diclofenac Sodium 100 Gm Gel..gram., 1 EA TP UD PRN for PAIN, (Reported) Lurasidone HCl 80 Mg Tablet, 80 MG PO HS, (Reported) Oxycodone HCl/Acetaminophen 1 Each Tablet, 1 TAB PO Q4H PRN for PAIN-MODERATE (5-7) Prescribed by: RICHELLE MULTANI on 05/01/20 1137 Quetiapine Fumarate 25 Mg Tablet, 25 MG PO DAILY, (Reported) Patient Home Medication List Home Medication List Reviewed: Yes Review of Systems Review of Systems Constitutional: see HPI EENTM: no symptoms reported Respiratory: other (Right-sided rib pain) Cardiovascular: no symptoms reported Gastrointestinal: no symptoms reported Genitourinary: no symptoms reported Musculoskeletal: joint pain (Right axillary pain) Skin: no symptoms reported Psychiatric/Neurological: No Symptoms Reported All Other Systems Reviewed Negative Unless Noted: Yes Past Hvblpwl-Ilwpte-Rolxda Hx Patient Social History Alcohol Use: Denies Use Number of Drinks Today: II Alcohol Beverage of Choice: Vodka, Other Drug of Choice: CHRONIC OPIATE USE/ABUSE AND OVERDOSES Smoking Status: Former Smoker Type Used: Cigarettes Former Smoker, Quit: Dec 25, 2019 2nd Hand Smoke Exposure: Yes Recent Infectious Disease Expo: No Recent Hopitalizations: No Immunizations Up To Date Tetanus Booster (TDap): Less than 5yrs PED Vaccines UTD: Yes Date of Pneumonia Vaccine: Feb 26, 2015 Date of Influenza Vaccine: Jan 17, 2018 Seasonal Allergies Seasonal Allergies: No Past Medical History Surgeries: Yes (Loop Recorder, R PAC, BILAT MASTECTOMY 04/01/21) Cardiac, Orthopedic, 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, Vascular Surgery Respiratory: No Asthma Currently Using CPAP: No Currently Using BIPAP: No Cardiac: Yes (PFO) Congenital Heart Disease, Deep Vein Thrombosis, High Cholesterol, Palpitations Neurological: Yes Seizure Disorder, Stroke 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 Disorders: Yes (MENORRHAGIA) Female 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 Sexually Transmitted Disease: No HIV/AIDS: No Genitourinary: Yes Kidney Stones, UTI-Chronic Gastrointestinal: Yes Irritable Bowel Musculoskeletal: Yes Degenerate Disk Disease, Foot Drop, Scoliosis, Chronic Back Pain, Fractures Endocrine: No Diabetes, Non-Insulin dep HEENT: No Loss of Vision: Bilateral Hearing Impairment: Denies Cancer: No Breast Psychosocial: Yes (D.I.D.) Anxiety, PTSD, Bipolar Integumentary: No Herpes Blood Disorders: Yes (HX OF HYPERCOLAGUABLE STATE) Adverse Reaction/Blood Tranf: No (N/A) Family Medical History Antiphospholipid syndrome 19 MOTHER Diabetes mellitus 19 FATHER G8 BROTHER FH: aneurysm 19 FATHER FH: lupus 19 MOTHER FHx: congestive heart failure 19 FATHER FHx: renal failure 19 MOTHER Heart murmur 19 MOTHER Lupus anticoagulant disorder 19 MOTHER Patent foramen ovale 19 FATHER Barry syndrome G8 SISTER No Pertinent Family Hx Physical Exam Vital Signs Vital Signs - First Documented 05/01/20 08:56 Temp 36.1 Pulse 87 Resp 18 B/P (MAP) 127/99 (108) Pulse Ox 99 Capillary Refill : Less Than 3 Seconds Height, Weight, BMI Height: 5'4.00" Weight: 189lbs. 9.0oz. 85.092971gk; 35.00 BMI Method:Stated General Appearance: WD/WN, Anxious, Mild Distress Eyes: Bilateral Eye Normal Inspection, Bilateral Eye PERRL, Bilateral Eye EOMI HEENT: PERRL/EOMI Neck: Full Range of Motion, Normal Inspection, Non Tender, Supple Respiratory: Lungs Clear, Normal Breath Sounds, No Accessory Muscle Use, No Respiratory Distress, Other (Exquisite tenderness to palpation over the right eighth ninth and 10th ribs laterally) Cardiovascular: Regular Rate, Rhythm Gastrointestinal: Normal Bowel Sounds, Non Tender, Soft Back: Normal Inspection, Other (Some tenderness to palpation over the posterior ribs around 8 and 9) Extremity: Normal Capillary Refill, Normal Inspection, Other (Decreased range of motion to the right shoulder, patient has pain with passive range of motion of the right upper extremity) Neurologic/Psychiatric: Alert, Oriented x3, No Motor/Sensory Deficits, Normal Mood/Affect Skin: Normal Color, Warm/Dry, Other (Postoperative sites of mastectomies bilaterally appear well-healed without erythema, tenderness, or fluctuance; the left filling hauler weaving has deflated the right is still intact) Progress/Results/Core Measures Suspected Sepsis Recent Fever Within 48 Hours: No Infection Criteria Present: None New/Unexplained Altered Menta: No Sepsis Screen: No Definite Risk SIRS Temperature: Pulse: 87 Respiratory Rate: 18 Laboratory Tests 05/01/20 09:22: White Blood Count 6.6 Blood Pressure 127 /99 Mean: 108 Laboratory Tests 05/01/20 09:22: Creatinine 0.65, Platelet Count 309 Results/Orders Lab Results Laboratory Tests Test 05/01/20 09:22 Range/Units White Blood Count 6.6 4.3-11.0 10^3/uL Red Blood Count 4.19 3.80-5.11 10^6/uL Hemoglobin 11.9 11.5-16.0 g/dL Hematocrit 37 35-52 % Mean Corpuscular Volume 88 80-99 fL Mean Corpuscular Hemoglobin 28 25-34 pg Mean Corpuscular Hemoglobin Concent 32 32-36 g/dL Red Cell Distribution Width 13.7 10.0-14.5 % Platelet Count 309 130-400 10^3/uL Mean Platelet Volume 10.0 9.0-12.2 fL Immature Granulocyte % (Auto) 1 % Neutrophils (%) (Auto) 47 42-75 % Lymphocytes (%) (Auto) 43 12-44 % Monocytes (%) (Auto) 7 0-12 % Eosinophils (%) (Auto) 3 0-10 % Basophils (%) (Auto) 0 0-10 % Neutrophils # (Auto) 3.1 1.8-7.8 10^3/uL Lymphocytes # (Auto) 2.8 1.0-4.0 10^3/uL Monocytes # (Auto) 0.5 0.0-1.0 10^3/uL Eosinophils # (Auto) 0.2 0.0-0.3 10^3/uL Basophils # (Auto) 0.0 0.0-0.1 10^3/uL Immature Granulocyte # (Auto) 0.0 0.0-0.1 10^3/uL Sodium Level 136 135-145 MMOL/L Potassium Level 4.2 3.6-5.0 MMOL/L Chloride Level 108 H 98-107 MMOL/L Carbon Dioxide Level 20 L 21-32 MMOL/L Anion Gap 8 5-14 MMOL/L Blood Urea Nitrogen 7 7-18 MG/DL Creatinine 0.65 0.60-1.30 MG/DL Estimat Glomerular Filtration Rate > 60 BUN/Creatinine Ratio 11 Glucose Level 99 70-105 MG/DL Calcium Level 8.9 8.5-10.1 MG/DL My Orders Orders - RICHELLE MULTANI MD Ed Iv/Invasive Line Start (05/01/20 09:21) Cbc With Automated Diff (05/01/20 09:21) Basic Metabolic Panel (05/01/20 09:21) Chest 1 View, Ap/Pa Only (05/01/20 09:21) Fentanyl Injection (Sublimaze Injection (05/01/20 09:30) Fentanyl Injection (Sublimaze Injection (05/01/20 11:45) Oxycodone/Apap 5/325mg Tablet (Percocet (05/01/20 11:45) Medications Given in ED Current Medications Medications Dose Ordered Sig/Diomedes Route Start Time Stop Time Status Last Admin Dose Admin Fentanyl Citrate 50 mcg ONCE ONCE IVP 05/01/20 09:30 05/01/20 09:31 DC 05/01/20 09:45 50 MCG Vital Signs/I&O 05/01/20 08:56 Temp 36.1 Pulse 87 Resp 18 B/P (MAP) 127/99 (108) Pulse Ox 99 Capillary Refill : Less Than 3 Seconds Blood Pressure Mean: 108 Progress Note : Time: 11:34 Progress Note Reevaluated patient after pain medications. It has been at least an hour since she is had her fentanyl and her pain is returning. Patient was able to get in touch with her surgeon and he will call her back once he is out of surgery. Patient's labs have been reviewed and are within normal limits. Her chest x-ray has been reviewed and is also within normal limits. Port-A-Cath placement appears to be appropriate. Tissue expanders are in place. Patient has pain without pain medications at home. I suspect that she may have a shift in the tissue filling hauler weaving on the right side of her chest. There is no crepitance of the soft tissues overlying the tissue filling hauler weaving. The filling hauler weaving appears to still be inflated. She has no erythema or signs of infection. Patient will be treated conservatively with pain medications and advised to follow-up with her general surgeon. She is comfortable with this plan of care. All questions are sought and answered. Patient is stable for discharge. Diagnostic Imaging Diagonstic Imaging: Xray Plain Films/CT/US/NM/MRI: chest Comments [facility], [place] NAME: COLTON ORTIZ Diomedes [facility] REC#: [id number] PT STATUS: REG ER : 1985 PHYSICIAN: RICHELLE MULTANI MD ADMIT DATE: 05/01/20/ER Signed Date of Exam:05/01/20 CHEST 1 VIEW, AP/PA ONLY INDICATION: Chest pain and recent double mastectomy. FINDINGS: The heart size is normal. Lungs are clear. There is no pleural effusion or pneumothorax. Mediastinum is unremarkable. Diffuse Port-A-Cath overlies right hemithorax has tip in superior vena cava. IMPRESSION: No acute cardiopulmonary abnormality. Dictated by: Dictated on workstation # [id number] Dict: 05/01/20 1016 Trans: 05/01/20 1019 [facility] [id number] Interpreted by: ISHA WOO MD Electronically signed by: ISHA WOO MD 05/01/20 1019 Departure Impression Primary Impression: Chest wall pain Disposition: HOME, SELF-CARE Condition: Stable Departure-Patient Inst. Decision time for Depature: 11:36 Referrals: [facility] [place] (PCP/Family) Primary Care Physician Patient Instructions: Chest Pain That Is Not Caused by the Heart (DC) Add. Discharge Instructions: Please follow-up with your surgeon today. I have given you a prescription for Percocet, take this medication every 4-6 hours as needed for pain. You can alternate or supplement with ibuprofen. If you develop a fever, redness over the chest wall, worsening pain or any other emergent concerning symptoms please come back to the emergency department for reevaluation. All discharge instructions reviewed with patient and/or family. Voiced understanding. Scripts Oxycodone HCl/Acetaminophen (Percocet 5-325 mg Tablet) 1 Each Tablet 1 TAB PO Q4H PRN for PAIN-MODERATE (5-7) MDD 6 TABS, #15 TAB Prov: RICHELLE MULTANI MD 05/01/20 RICHELLE MULTANI MD May 01, 2020 09:25
[2020-05-01] MEDS ORDERED: fentaNYL INJECTION 100 MCG/2 ML AMP IVP ONE ×2 (09:30→11:45)
[2020-05-01 09:50] LABS: BASOPHILS % (AUTO) 0 % (0-10); EOSINOPHILS # (AUTO) 0.2 10^3/uL (0.0-0.3); EOSINOPHILS % (AUTO) 3 % (0-10); HEMATOCRIT 37 % (35-52); HEMOGLOBIN 11.9 g/dL (11.5-16.0); LYMPHOCYTES # (AUTO) 2.8 10^3/uL (1.0-4.0); LYMPHOCYTES % (AUTO) 43 % (12-44); MEAN CORPUSCULAR HEMOGLOBIN 28 pg (25-34); MEAN CORPUSCULAR HGB CONC 32 g/dL (32-36); MEAN CORPUSCULAR VOLUME 88 fL (80-99); MONOCYTES # (AUTO) 0.5 10^3/uL (0.0-1.0); MONOCYTES % (AUTO) 7 % (0-12); NEUTROPHILS # (AUTO) 3.1 10^3/uL (1.8-7.8); NEUTROPHILS % (AUTO) 47 % (42-75); PLATELET COUNT 309 10^3/uL (130-400); WHITE BLOOD COUNT 6.6 10^3/uL (4.3-11.0)
[2020-05-01 10:13] LABS: CHLORIDE 108 MMOL/L (98-107); POTASSIUM 4.2 MMOL/L (3.6-5.0); SODIUM 136 MMOL/L (135-145)
[2020-05-01 10:14] LABS: CALCIUM 8.9 MG/DL (8.5-10.1)
[2020-05-01 10:15] LABS: GLUCOSE 99 MG/DL (70-105)
[2020-05-01 10:16] LABS: CARBON DIOXIDE 20 MMOL/L (21-32)
[2020-05-01 10:18] LABS: CREATININE SERUM 0.65 MG/DL (0.60-1.30); GFR ESTIMATED > 60
--- NOTE | 2020-05-01 10:18 | Diagnostic Imaging Report ---
INDICATION: Chest pain and recent double mastectomy. FINDINGS: The heart size is normal. Lungs are clear. There is no pleural effusion or pneumothorax. Mediastinum is unremarkable. Diffuse Port-A-Cath overlies right hemithorax has tip in superior vena cava. IMPRESSION: No acute cardiopulmonary abnormality. Dictated by: Dictated on workstation # [id number]
[2020-05-01 10:19] LABS: BUN/CREATININE RATIO 11
[2020-05-01] MEDS ORDERED: OXYC1TAB87 PO (11:37)
[2020-05-01] MEDS ORDERED: oxyCODONE/APAP 5/325MG (PERCOCET 5) TABLET PO ONE (11:45)
[2020-05-01 12:20] VITALS: BP 106/73
== END 2020-05-01 12:20 | disposition home or self-care (01) ==
LOC: EDUNIT# 08:51 → ER 08:53
DX: R07.89 Other chest pain (principal); F41.9 Anxiety disorder, unspecified; F31.9 Bipolar disorder, unspecified; G89.29 Other chronic pain; M54.9 Dorsalgia, unspecified; G40.909 Epilepsy, unspecified, not intractable, without status epilepticus; Z88.0 Allergy status to penicillin; Z88.2 Allergy status to sulfonamides; Z91.040 Latex allergy status; Z85.3 Personal history of malignant neoplasm of breast; Z86.73 Personal history of transient ischemic attack (TIA), and cerebral infarction without residual deficits; Z87.891 Personal history of nicotine dependence; Z83.3 Family history of diabetes mellitus; Z82.49 Family history of ischemic heart disease and other diseases of the circulatory system; Z79.891 Long term (current) use of opiate analgesic
CPT/HCPCS: 36415; 71045; 80048; 85025

== ENCOUNTER 2020-07-06 17:04 | Emergency (ER) | payer MEDICARE, MEDICAID ==
[~2020-07-06] VITALS: Ht 162.5 cm; Wt 83.4 kg
[~2020-07-06 17:04] MED LIST changes: -OXYC-471 PO; +OXYC1TAB11 PO; +QUET50TA22 PO; -QUET50TA55 PO
--- NOTE | 2020-07-06 17:11 | ED General ---
General Stated Complaint: NAUSEA/WEAKNESS Source of Information: Patient Exam Limitations: No Limitations History of Present Illness Date Seen by Provider: Jul 06, 2020 Time Seen by Provider: 17:10 Initial Comments To ER by EMS from home with reports of nausea and weakness since her second chemotherapy dose on 06/25/2020 for breast cancer followed by Dr. Arauz. No pain. Timing/Duration: 1-2 Days Severity: Moderate Associated Systoms: Denies Symptoms Allergies and Home Medications Allergies Coded Allergies: aprepitant (Verified Allergy, Severe, 05/14/20) PATIENT STATES COULD NOT BREATH fosaprepitant (Verified Allergy, Severe, 05/14/20) PATIENT STATES COULD NOT BREATH latex (Verified Allergy, Severe, BLISTERS, 08/24/17) penicillin (Verified Allergy, Severe, ITCHING, 08/24/17) Sulfa (Sulfonamide Antibiotics) (Verified Allergy, Unknown, RASH, 08/24/17) Home Medications Carbamazepine 200 Mg Tab.er.12h, 200 MG PO BID, (Reported) Diclofenac Sodium 100 Gm Gel..gram., 1 EA TP UD PRN for PAIN, (Reported) Lurasidone HCl 80 Mg Tablet, 80 MG PO HS, (Reported) Oxycodone HCl/Acetaminophen 1 Each Tablet, 1 TAB PO Q4H PRN for PAIN-MODERATE (5-7) Prescribed by: RICHELLE MULTANI on 05/01/20 1137 Quetiapine Fumarate 25 Mg Tablet, 25 MG PO DAILY, (Reported) Patient Home Medication List Home Medication List Reviewed: Yes Review of Systems Review of Systems Constitutional: see HPI EENTM: see HPI Respiratory: no symptoms reported Cardiovascular: no symptoms reported Gastrointestinal: nausea, vomiting Genitourinary: no symptoms reported Musculoskeletal: no symptoms reported Skin: no symptoms reported Psychiatric/Neurological: No Symptoms Reported Hematologic/Lymphatic: No Symptoms Reported Past Envzbra-Crkgvr-Uovokm Hx Patient Social History Alcohol Beverage of Choice: Vodka, Other Drug of Choice: CHRONIC OPIATE USE/ABUSE AND OVERDOSES Type Used: Cigarettes Former Smoker, Quit: Dec 25, 2019 2nd Hand Smoke Exposure: Yes Recent Hopitalizations: No Immunizations Up To Date Tetanus Booster (TDap): Less than 5yrs PED Vaccines UTD: Yes Date of Pneumonia Vaccine: Feb 26, 2015 Date of Influenza Vaccine: Jan 17, 2018 Seasonal Allergies Seasonal Allergies: No Past Medical History Surgeries: Yes (Loop Recorder, R PAC, BILAT MASTECTOMY 04/01/21) Cardiac, Orthopedic, 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, Vascular Surgery Respiratory: No Asthma Currently Using CPAP: No Currently Using BIPAP: No Cardiac: Yes (PFO) Congenital Heart Disease, Deep Vein Thrombosis, High Cholesterol, Palpitations Neurological: Yes Seizure Disorder, Stroke 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 Disorders: Yes (MENORRHAGIA) Female 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 Disorders: Ovarian Cyst [employer] History: 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 Sexually Transmitted Disease: No HIV/AIDS: No Genitourinary: Yes Kidney Stones, UTI-Chronic Gastrointestinal: Yes Irritable Bowel Musculoskeletal: Yes Degenerate Disk Disease, Foot Drop, Scoliosis, Chronic Back Pain, Fractures Endocrine: No Diabetes, Non-Insulin dep HEENT: No Loss of Vision: Bilateral Hearing Impairment: Denies Cancer: No Breast Psychosocial: Yes (D.I.D.) Anxiety, PTSD, Bipolar Integumentary: No Herpes Blood Disorders: Yes (HX OF HYPERCOLAGUABLE STATE) Adverse Reaction/Blood Tranf: No (N/A) Family Medical History Antiphospholipid syndrome 19 MOTHER Diabetes mellitus 19 FATHER G8 BROTHER FH: aneurysm 19 FATHER FH: lupus 19 MOTHER FHx: congestive heart failure 19 FATHER FHx: renal failure 19 MOTHER Heart murmur 19 MOTHER Lupus anticoagulant disorder 19 MOTHER Patent foramen ovale 19 FATHER Barry syndrome G8 SISTER No Pertinent Family Hx Physical Exam Vital Signs Capillary Refill : Height, Weight, BMI Height: 5'4.00" Weight: 189lbs. 9.0oz. [id number]; 35.00 BMI Method:Stated General Appearance: No Apparent Distress, WD/WN Eyes: Bilateral Eye Normal Inspection, Bilateral Eye PERRL Neck: Full Range of Motion, Normal Inspection Respiratory: No Accessory Muscle Use, No Respiratory Distress Cardiovascular: Regular Rate, Rhythm, Normal Peripheral Pulses Gastrointestinal: Normal Bowel Sounds, Non Tender, Soft Extremity: Normal Capillary Refill, Normal Inspection Neurologic/Psychiatric: Alert, Oriented x3 Skin: Normal Color, Warm/Dry Progress/Results/Core Measures Suspected Sepsis SIRS Temperature: Pulse: Respiratory Rate: Laboratory Tests 07/06/20 17:25: White Blood Count 13.2H Blood Pressure / Mean: Laboratory Tests 07/06/20 17:25: Creatinine 0.64, Platelet Count 326, Total Bilirubin 0.2 Results/Orders Lab Results Laboratory Tests Test 07/06/20 17:25 07/06/20 17:45 Range/Units White Blood Count 13.2 H 4.3-11.0 10^3/uL Red Blood Count 3.92 3.80-5.11 10^6/uL Hemoglobin 10.8 L 11.5-16.0 g/dL Hematocrit 35 35-52 % Mean Corpuscular Volume 88 80-99 fL Mean Corpuscular Hemoglobin 28 25-34 pg Mean Corpuscular Hemoglobin Concent 31 L 32-36 g/dL Red Cell Distribution Width 17.8 H 10.0-14.5 % Platelet Count 326 130-400 10^3/uL Mean Platelet Volume 9.5 9.0-12.2 fL Immature Granulocyte % (Auto) 8 % Neutrophils (%) (Auto) 52 42-75 % Lymphocytes (%) (Auto) 34 12-44 % Monocytes (%) (Auto) 7 0-12 % Eosinophils (%) (Auto) 0 0-10 % Basophils (%) (Auto) 1 0-10 % Neutrophils # (Auto) 6.9 1.8-7.8 10^3/uL Lymphocytes # (Auto) 4.5 H 1.0-4.0 10^3/uL Monocytes # (Auto) 0.9 0.0-1.0 10^3/uL Eosinophils # (Auto) 0.0 0.0-0.3 10^3/uL Basophils # (Auto) 0.1 0.0-0.1 10^3/uL Immature Granulocyte # (Auto) 1.0 H 0.0-0.1 10^3/uL Neutrophils % (Manual) 48 % Lymphocytes % (Manual) 37 % Monocytes % (Manual) 3 % Metamyelocytes % 1 % Band Neutrophils 11 % Nucleated Red Blood Cells 1 Toxic Granulation 1+ Polychromasia SLIGHT Poikilocytosis SLIGHT Anisocytosis SLIGHT Microcytosis SLIGHT Sodium Level 139 135-145 MMOL/L Potassium Level 4.1 3.6-5.0 MMOL/L Chloride Level 106 98-107 MMOL/L Carbon Dioxide Level 22 21-32 MMOL/L Anion Gap 11 5-14 MMOL/L Blood Urea Nitrogen 9 7-18 MG/DL Creatinine 0.64 0.60-1.30 MG/DL Estimat Glomerular Filtration Rate > 60 BUN/Creatinine Ratio 14 Glucose Level 103 70-105 MG/DL Calcium Level 9.2 8.5-10.1 MG/DL Corrected Calcium 9.1 8.5-10.1 MG/DL Total Bilirubin 0.2 0.1-1.0 MG/DL Aspartate Amino Transf (AST/SGOT) 13 5-34 U/L Alanine Aminotransferase (ALT/SGPT) 22 0-55 U/L Alkaline Phosphatase 55 40-136 U/L Total Protein 6.8 6.4-8.2 GM/DL Albumin 4.1 3.2-4.5 GM/DL Urine Color YELLOW Urine Clarity CLEAR Urine pH 7.0 5-9 Urine Specific [place] 1.015 L 1.016-1.022 Urine Protein NEGATIVE NEGATIVE Urine Glucose (UA) NEGATIVE NEGATIVE Urine Ketones NEGATIVE NEGATIVE Urine Nitrite NEGATIVE NEGATIVE Urine Bilirubin NEGATIVE NEGATIVE Urine Urobilinogen 0.2 < = 1.0 MG/DL Urine Leukocyte Esterase NEGATIVE NEGATIVE Urine RBC (Auto) NEGATIVE NEGATIVE Urine RBC NONE /HPF Urine WBC NONE /HPF Urine Squamous Epithelial Cells 0-2 /HPF Urine Crystals NONE /LPF Urine Bacteria NEGATIVE /HPF Urine Casts NONE /LPF Urine Mucus NEGATIVE /LPF Urine Culture Indicated NO My Orders Orders - LAWRENCE WHITESIDE APRN Cbc With Automated Diff (07/06/20 17:08) Ua Culture If Indicated (07/06/20 17:08) Comprehensive Metabolic Panel (07/06/20 17:08) Ed Iv/Invasive Line Start (07/06/20 17:08) Ns Iv 1000 Ml (Sodium Chloride 0.9%) (07/06/20 17:15) Promethazine Injection (Phenergan Injec (07/06/20 17:15) Manual Differential (07/06/20 17:25) Vital Signs/I&O Capillary Refill : Departure Impression Primary Impression: Nausea & vomiting Disposition: 01 HOME, SELF-CARE Condition: Improved Departure-Patient Inst. Decision time for Depature: 18:05 Referrals: [facility] (PCP/Family) Primary Care Physician Patient Instructions: Nausea and Vomiting With Cancer Treatment Add. Discharge Instructions: 1. Return to ER for any concerns or worsening. Follow-up with your doctor next week. LAWRENCE WHITESIDE APRN Jul 06, 2020 17:11
[2020-07-06] MEDS ORDERED: PROMETHAZINE INJ 25 MG/ML (PHENERGAN) AMP IVP ONE (17:15)
[2020-07-06] MEDS ORDERED: NS IV 1000 ML 1,000 ML IV SCH (17:15)
[2020-07-06 17:36] LABS: BASOPHILS # (AUTO) 0.1 10^3/uL (0.0-0.1); BASOPHILS % (AUTO) 1 % (0-10); EOSINOPHILS % (AUTO) 0 % (0-10); HEMATOCRIT 35 % (35-52); HEMOGLOBIN 10.8 g/dL (11.5-16.0); LYMPHOCYTES # (AUTO) 4.5 10^3/uL (1.0-4.0); LYMPHOCYTES % (AUTO) 34 % (12-44); MEAN CORPUSCULAR HEMOGLOBIN 28 pg (25-34); MEAN CORPUSCULAR HGB CONC 31 g/dL (32-36); MEAN CORPUSCULAR VOLUME 88 fL (80-99); MEAN PLATELET VOLUME 9.5 fL (9.0-12.2); MONOCYTES # (AUTO) 0.9 10^3/uL (0.0-1.0); MONOCYTES % (AUTO) 7 % (0-12); NEUTROPHILS # (AUTO) 6.9 10^3/uL (1.8-7.8); NEUTROPHILS % (AUTO) 52 % (42-75); PLATELET COUNT 326 10^3/uL (130-400); WHITE BLOOD COUNT 13.2 10^3/uL (4.3-11.0)
[2020-07-06 17:49] LABS: ALBUMIN 4.1 GM/DL (3.2-4.5); CHLORIDE 106 MMOL/L (98-107); POTASSIUM 4.1 MMOL/L (3.6-5.0); SODIUM 139 MMOL/L (135-145)
[2020-07-06 17:50] LABS: CALCIUM 9.2 MG/DL (8.5-10.1)
[2020-07-06 17:51] LABS: GLUCOSE 103 MG/DL (70-105); TOTAL PROTEIN 6.8 GM/DL (6.4-8.2)
[2020-07-06 17:52] LABS: CARBON DIOXIDE 22 MMOL/L (21-32)
[2020-07-06 17:53] LABS: BILIRUBIN,TOTAL 0.2 MG/DL (0.1-1.0)
[2020-07-06 17:54] LABS: BILIRUBIN,URINE NEGATIVE (NEGATIVE); CLARITY,URINE CLEAR; COLOR,URINE YELLOW; GLUCOSE, URINE (UA) NEGATIVE (NEGATIVE); KETONES,URINE NEGATIVE (NEGATIVE); LEUKOCYTE ESTERASE ,URINE NEGATIVE (NEGATIVE); NITRITE,URINE NEGATIVE (NEGATIVE); PROTEIN,URINE NEGATIVE (NEGATIVE)
[2020-07-06 17:55] LABS: ALKALINE PHOSPHATASE 55 U/L (40-136); CREATININE SERUM 0.64 MG/DL (0.60-1.30); GFR ESTIMATED > 60
[2020-07-06 17:56] LABS: BUN/CREATININE RATIO 14
[2020-07-06 17:58] LABS: ALANINE AMINOTRANSFERASE 22 U/L (0-55); ANISOCYTOSIS SLIGHT; BAND NEUTROPHILS 11 %; LYMPHOCYTES % (MANUAL) 37 %; METAMYELOCYTES % 1 %; MICROCYTOSIS SLIGHT; MONOCYTES % (MANUAL) 3 %; NEUTROPHILS % (MANUAL) 48 %; NUCLEATED RED BLOOD CELLS 1; POIKILOCYTOSIS SLIGHT; POLYCHROMASIA SLIGHT; TOXIC GRANULATION/VACUOLAZATIO 1+
[2020-07-06 18:01] LABS: BACTERIA,URINE NEGATIVE /HPF; SQUAMOUS EPITHELIAL CELL,UR 0-2 /HPF
[2020-07-06] MEDS ORDERED: RX-PHENERGAN 25 MG SUPP PPK#3 PR STA (18:05)
[2020-07-06 19:12] VITALS: BP 125/99
== END 2020-07-06 19:18 | disposition home or self-care (01) ==
LOC: EDUNIT# 17:04 → ER 17:06
DX: R11.2 Nausea with vomiting, unspecified (principal); R53.1 Weakness; C50.919 Malignant neoplasm of unspecified site of unspecified female breast; E11.9 Type 2 diabetes mellitus without complications; F31.9 Bipolar disorder, unspecified; F41.9 Anxiety disorder, unspecified; F43.10 Post-traumatic stress disorder, unspecified; G40.909 Epilepsy, unspecified, not intractable, without status epilepticus; M41.9 Scoliosis, unspecified; Q24.9 Congenital malformation of heart, unspecified; Z77.22 Contact with and (suspected) exposure to environmental tobacco smoke (acute) (chronic); Z79.899 Other long term (current) drug therapy; Z88.0 Allergy status to penicillin; Z88.2 Allergy status to sulfonamides; Z88.8 Allergy status to other drugs, medicaments and biological substances; Z91.040 Latex allergy status
CPT/HCPCS: 36415; 80053; 81000; 85007; 85027

== ENCOUNTER 2020-07-20 20:04 | Inpatient (IN) | payer MEDICARE, MEDICAID ==
[~2020-07-20] VITALS: Ht 155.5 cm; Wt 120.5 kg
[2020-07-20] MEDS ORDERED: ADENOSINE 6 MG/2 ML (ADENOCARD) VIAL IV ONE ×3 (20:06→20:15)
[2020-07-20] MEDS ORDERED: LACTATED RINGERS 1,000 ML IV SCH (20:15)
[2020-07-20 20:17] LABS: BASOPHILS # (AUTO) 0.2 10^3/uL (0.0-0.1); BASOPHILS % (AUTO) 2 % (0-10); EOSINOPHILS % (AUTO) 0 % (0-10); HEMATOCRIT 34 % (35-52); HEMOGLOBIN 10.6 g/dL (11.5-16.0); LYMPHOCYTES % (AUTO) 30 % (12-44); MEAN CORPUSCULAR HEMOGLOBIN 28 pg (25-34); MEAN CORPUSCULAR HGB CONC 31 g/dL (32-36); MEAN CORPUSCULAR VOLUME 90 fL (80-99); MONOCYTES # (AUTO) 0.1 10^3/uL (0.0-1.0); MONOCYTES % (AUTO) 1 % (0-12); NEUTROPHILS # (AUTO) 6.3 10^3/uL (1.8-7.8); NEUTROPHILS % (AUTO) 65 % (42-75); PLATELET COUNT 269 10^3/uL (130-400); WHITE BLOOD COUNT 9.8 10^3/uL (4.3-11.0)
[2020-07-20 20:25] LABS: ALBUMIN 3.9 GM/DL (3.2-4.5); CHLORIDE 106 MMOL/L (98-107); POTASSIUM 3.5 MMOL/L (3.6-5.0); SODIUM 140 MMOL/L (135-145)
[2020-07-20 20:27] LABS: CALCIUM 8.9 MG/DL (8.5-10.1)
[2020-07-20 20:28] LABS: GLUCOSE 114 MG/DL (70-105); INR 0.9 (0.8-1.4); TOTAL PROTEIN 6.4 GM/DL (6.4-8.2)
[2020-07-20 20:29] LABS: CARBON DIOXIDE 21 MMOL/L (21-32)
[2020-07-20 20:30] LABS: BILIRUBIN,TOTAL 0.3 MG/DL (0.1-1.0)
[2020-07-20 20:31] LABS: ALKALINE PHOSPHATASE 55 U/L (40-136); CREATININE SERUM 0.72 MG/DL (0.60-1.30); GFR ESTIMATED > 60
--- NOTE | 2020-07-20 20:31 | ED Cardiac General ---
History of Present Illness General Chief Complaint: Cardiac/General Problems Stated Complaint: CP, SOB Source: patient Exam Limitations: no limitations History of Present Illness Date Seen by Provider: Jul 20, 2020 Time Seen by Provider: 20:04 Initial Comments Patient to the ER by EMS from home with chief complaint about an hour prior to arrival she started having palpitations and feeling of some tightness across her chest shortness of air. EMS remarks she was 100% on room air when they arrived complaining of being short of air and they noticed on EKG she was in SVT. She has no history of dysrhythmia. No history of coronary disease. She is however on chemotherapy with her last dose being Tuesday, 4 days prior under the care of [facility] oncology and locally Dr. Christianson. She is known to [facility] for primary care and her surgeon is at [facility]. She has breast cancer and had planned for a biopsy on Tuesday, 6 days ago however she had a fever at that time. They swabbed her for Covid and it was negative but put off the biopsy until after her fever was down. She does not think she passed out. She is not a smoker. She denies dysuria cough. Negative for hypertension hyperlipidemia or diabetes. Allergies and Home Medications Allergies Coded Allergies: aprepitant (Verified Allergy, Severe, 05/14/20) PATIENT STATES COULD NOT BREATH fosaprepitant (Verified Allergy, Severe, 05/14/20) PATIENT STATES COULD NOT BREATH latex (Verified Allergy, Severe, BLISTERS, 08/24/17) penicillin (Verified Allergy, Severe, ITCHING, 08/24/17) Sulfa (Sulfonamide Antibiotics) (Verified Allergy, Unknown, RASH, 08/24/17) Home Medications Carbamazepine 200 Mg Tab.er.12h, 200 MG PO BID, (Reported) Diclofenac Sodium 100 Gm Gel..gram., 1 EA TP UD PRN for PAIN, (Reported) Lurasidone HCl 80 Mg Tablet, 80 MG PO HS, (Reported) Oxycodone HCl/Acetaminophen 1 Each Tablet, 1 TAB PO Q4H PRN for PAIN-MODERATE (5-7) Prescribed by: RICHELLE MULTANI on 05/01/20 1220 Quetiapine Fumarate 25 Mg Tablet, 25 MG PO DAILY, (Reported) Patient Home Medication List Home Medication List Reviewed: Yes Review of Systems Review of Systems Constitutional: chills, fever, malaise, weakness EENTM: No Blurred Vision, No Double Vision Respiratory: Denies Cough; Shortness of Air Cardiovascular: See HPI, Chest Pain, Lightheadedness, Palpitations Gastrointestinal: Denies Abdominal Pain, Denies Constipated, Denies Diarrhea, Denies Nausea, Denies Poor Fluid Intake Genitourinary: Denies Burning, Denies Discharge Musculoskeletal: No back pain, No joint pain All Other Systems Reviewed Negative Unless Noted: Yes Past Lmhnulu-Vrjrgx-Oqaqhj Hx Patient Social History Alcohol Use: Occasionally Uses Alcohol Beverage of Choice: Vodka, Other Drug of Choice: CHRONIC OPIATE USE/ABUSE AND OVERDOSES Smoking Status: Former Smoker Type Used: Cigarettes Former Smoker, Quit: Dec 25, 2019 2nd Hand Smoke Exposure: Yes Recent Hopitalizations: No Immunizations Up To Date Tetanus Booster (TDap): Less than 5yrs PED Vaccines UTD: Yes Date of Pneumonia Vaccine: Feb 26, 2015 Date of Influenza Vaccine: Jan 17, 2018 Seasonal Allergies Seasonal Allergies: No Past Medical History Surgeries: Yes (Loop Recorder, R PAC, BILAT MASTECTOMY 04/01/21) Cardiac, Orthopedic, 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, Vascular Surgery Respiratory: No Asthma Currently Using CPAP: No Currently Using BIPAP: No Cardiac: Yes (PFO) Congenital Heart Disease, Deep Vein Thrombosis, High Cholesterol, Palpitations Neurological: Yes Seizure Disorder, Stroke 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 Disorders: Yes (MENORRHAGIA) Female 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 Disorders: Ovarian Cyst [employer]ORD[employer] History: 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 Sexually Transmitted Disease: No HIV/AIDS: No Genitourinary: Yes Kidney Stones, UTI-Chronic Gastrointestinal: Yes Irritable Bowel Musculoskeletal: Yes Degenerate Disk Disease, Foot Drop, Scoliosis, Chronic Back Pain, Fractures Endocrine: No Diabetes, Non-Insulin dep HEENT: No Loss of Vision: Bilateral Hearing Impairment: Denies Cancer: No Breast Psychosocial: Yes (D.I.D.) Anxiety, PTSD, Bipolar Integumentary: No Herpes Blood Disorders: Yes (HX OF HYPERCOLAGUABLE STATE) Adverse Reaction/Blood Tranf: No (N/A) Family Medical History Antiphospholipid syndrome 19 MOTHER Diabetes mellitus 19 FATHER G8 BROTHER FH: aneurysm 19 FATHER FH: lupus 19 MOTHER FHx: congestive heart failure 19 FATHER FHx: renal failure 19 MOTHER Heart murmur 19 MOTHER Lupus anticoagulant disorder 19 MOTHER Patent foramen ovale 19 FATHER Barry syndrome G8 SISTER No Pertinent Family Hx Physical Exam Vital Signs Vital Signs - First Documented 07/20/20 07/20/20 20:04 20:06 Temp 36.9 Pulse 166 Resp 20 B/P (MAP) 157/117 (130) Pulse Ox 100 O2 Delivery Nasal Cannula O2 Flow Rate 2.00 FiO2 100 Capillary Refill : Height, Weight, BMI Height: 5'4.00" Weight: 189lbs. 9.0oz. 85.572853mv; 31.00 BMI Method:Stated General Appearance: Anxious, Obese HEENT: PERRL/EOMI, Pharynx Normal, Moist Mucous Membranes Neck: Full Range of Motion, Normal Inspection, Non Tender, Supple Respiratory: Lungs Clear, Normal Breath Sounds, No Accessory Muscle Use, No Respiratory Distress Cardiovascular: Regular Rate, Rhythm, Normal Peripheral Pulses, Tachycardia (160) Gastrointestinal: Normal Bowel Sounds, Non Tender, Soft Extremity: Normal Capillary Refill, Normal Inspection, No Pedal Edema Neurologic/Psychiatric: Alert, Oriented x3 Focused Exam Sepsis Stage: Sepsis Possible Source: Unknown Lactate Level 07/20/20 20:55: Lactic Acid Level 1.78 Time of Focused Exam: 21:43 Respiratory: Lungs Clear, Normal Breath Sounds, No Accessory Muscle Use (100% on 2 L by nasal cannula), No Respiratory Distress Cardiovascular: Regular Rate, Rhythm, No Edema, Normal Peripheral Pulses Capillary Refill: Less Than 3 Seconds Peripheral Pulses: 2+ Dorsalis Pedis (R), 2+ Left Dors-Pedis (L) Skin: normal color, warm/dry Lactic Acid Level Laboratory Tests Test 07/20/20 20:55 Lactic Acid Level 1.78 MMOL/L (0.50-2.00) Within 3hrs of presentation: Admin fluids, Admin ABX, Blood cultures prior to ABX's, Focus exam, Lactate level Progress/Results/Core Measures Results/Orders Lab Results Laboratory Tests Test 07/20/20 20:04 07/20/20 20:55 07/20/20 21:00 Range/Units White Blood Count 9.8 4.3-11.0 10^3/uL Red Blood Count 3.79 L 3.80-5.11 10^6/uL Hemoglobin 10.6 L 11.5-16.0 g/dL Hematocrit 34 L 35-52 % Mean Corpuscular Volume 90 80-99 fL Mean Corpuscular Hemoglobin 28 25-34 pg Mean Corpuscular Hemoglobin Concent 31 L 32-36 g/dL Red Cell Distribution Width 18.9 H 10.0-14.5 % Platelet Count 269 130-400 10^3/uL Mean Platelet Volume 10.0 9.0-12.2 fL Immature Granulocyte % (Auto) 2 % Neutrophils (%) (Auto) 65 42-75 % Lymphocytes (%) (Auto) 30 12-44 % Monocytes (%) (Auto) 1 0-12 % Eosinophils (%) (Auto) 0 0-10 % Basophils (%) (Auto) 2 0-10 % Neutrophils # (Auto) 6.3 1.8-7.8 10^3/uL Lymphocytes # (Auto) 3.0 1.0-4.0 10^3/uL Monocytes # (Auto) 0.1 0.0-1.0 10^3/uL Eosinophils # (Auto) 0.0 0.0-0.3 10^3/uL Basophils # (Auto) 0.2 H 0.0-0.1 10^3/uL Immature Granulocyte # (Auto) 0.2 H 0.0-0.1 10^3/uL Neutrophils % (Manual) 54 % Lymphocytes % (Manual) 36 % Monocytes % (Manual) 1 % Band Neutrophils 9 % Anisocytosis SLIGHT Prothrombin Time 13.0 12.2-14.7 SEC INR Comment 0.9 0.8-1.4 Activated Partial Thromboplast Time 45 H 24-35 SEC Sodium Level 140 135-145 MMOL/L Potassium Level 3.5 L 3.6-5.0 MMOL/L Chloride Level 106 98-107 MMOL/L Carbon Dioxide Level 21 21-32 MMOL/L Anion Gap 13 5-14 MMOL/L Blood Urea Nitrogen 10 7-18 MG/DL Creatinine 0.72 0.60-1.30 MG/DL Estimat Glomerular Filtration Rate > 60 BUN/Creatinine Ratio 14 Glucose Level 114 H 70-105 MG/DL Calcium Level 8.9 8.5-10.1 MG/DL Corrected Calcium 9.0 8.5-10.1 MG/DL Magnesium Level 2.0 1.6-2.4 MG/DL Total Bilirubin 0.3 0.1-1.0 MG/DL Aspartate Amino Transf (AST/SGOT) 11 5-34 U/L Alanine Aminotransferase (ALT/SGPT) 15 0-55 U/L Alkaline Phosphatase 55 40-136 U/L Myoglobin 26.0 10.0-92.0 NG/ML Troponin I < 0.028 <0.028 NG/ML B-Type Natriuretic Peptide 31.9 <100.0 PG/ML Total Protein 6.4 6.4-8.2 GM/DL Albumin 3.9 3.2-4.5 GM/DL Urine Color YELLOW Urine Clarity CLEAR Urine pH 7.0 5-9 Urine Specific [place] <=1.005 1.016-1.022 Urine Protein NEGATIVE NEGATIVE Urine Glucose (UA) NEGATIVE NEGATIVE Urine Ketones NEGATIVE NEGATIVE Urine Nitrite NEGATIVE NEGATIVE Urine Bilirubin NEGATIVE NEGATIVE Urine Urobilinogen 0.2 < = 1.0 MG/DL Urine Leukocyte Esterase TRACE H NEGATIVE Urine RBC (Auto) NEGATIVE NEGATIVE Urine RBC NONE /HPF Urine WBC 0-2 /HPF Urine Squamous Epithelial Cells 2-5 /HPF Urine Crystals NONE /LPF Urine Bacteria TRACE /HPF Urine Casts NONE /LPF Urine Mucus NEGATIVE /LPF Urine Trichomonas FEW H /HPF Urine Culture Indicated CULTURE PENDING Urine Test NEGATIVE NEGATIVE Lactic Acid Level 1.78 0.50-2.00 MMOL/L Urine Opiates Screen NEGATIVE NEGATIVE Urine Oxycodone Screen NEGATIVE NEGATIVE Urine Methadone Screen NEGATIVE NEGATIVE Urine Propoxyphene Screen NEGATIVE NEGATIVE Urine Barbiturates Screen NEGATIVE NEGATIVE Ur Tricyclic Antidepressants Screen NEGATIVE NEGATIVE Urine Phencyclidine Screen NEGATIVE NEGATIVE Urine Amphetamines Screen NEGATIVE NEGATIVE Urine Methamphetamines Screen NEGATIVE NEGATIVE Urine Benzodiazepines Screen NEGATIVE NEGATIVE Urine Cocaine Screen NEGATIVE NEGATIVE Urine Cannabinoids Screen NEGATIVE NEGATIVE Coronavirus 2019 (XOCHITL) Negative Negative Group A Streptococcus Screen NEGATIVE NEGATIVE Micro Results Microbiology 07/20/20 Influenza Types A,B Antigen (STARR) - Final, Complete My Orders Orders - MAURIZIO THURMAN Adenosine Injection (Adenocard Injection (07/20/20 20:06) Ua Culture If Indicated (07/20/20 20:25) Drug Screen Stat (Urine) (07/20/20 20:25) Covid 19 Inhouse Test (07/20/20 20:25) Influenza A And B Antigens (07/20/20 20:25) Rapid Strep A Screen (07/20/20 20:25) Blood Culture (07/20/20 20:32) Sputum Culture (07/20/20 20:32) Urine Culture (07/20/20 20:32) Ed Iv/Invasive Line Start (07/20/20 20:32) Ed Iv/Invasive Line Start (07/20/20 20:32) Vital Signs Adult Sepsis Patie Q15M (07/20/20 20:32) Remove Rings In Anticipation O (07/20/20 20:32) Lactic Acid Analyzer (07/20/20 20:32) Lactated Ringers (Lr 1000 Ml Iv Solution (07/20/20 20:45) Cefepime Injection (Maxipime Injection) (07/20/20 20:45) Vancomycin Injection (Vancomycin Injecti (07/20/20 20:45) Ekg Tracing (07/20/20 20:47) Ct Angio Chest W (07/20/20 20:53) Hcg,Qualitative Urine (07/20/20 21:07) Iohexol Injection (Omnipaque 350 Mg/Ml 1 (07/20/20 21:30) Received Contrast (Hold Metformin- Contr (07/20/20 21:30) Ns (Ivpb) (Sodium Chloride 0.9% Ivpb Bag (07/20/20 21:30) Fibrin Degradation Products (07/20/20 21:33) Medications Given in ED Current Medications Medications Dose Ordered Sig/Diomedes Route Start Time Stop Time Status Last Admin Dose Admin Adenosine 6 mg STK-MED ONCE IV 07/20/20 20:06 07/20/20 20:14 DC 07/20/20 20:19 6 MG Cefepime HCl 1000 mg/Sterile Water 10 ml @ 200 mls/hr ONCE ONCE IV 07/20/20 20:45 07/20/20 20:47 DC 07/20/20 21:05 200 MLS/HR Iohexol 100 ml ONCE ONCE IV 07/20/20 21:30 07/20/20 21:31 DC 07/20/20 21:29 77 ML Sodium Chloride 100 ml ONCE ONCE IV 07/20/20 21:30 07/20/20 21:31 DC 07/20/20 21:29 70 ML Vital Signs/I&O 07/20/20 07/20/20 07/20/20 20:04 20:06 20:38 Temp 36.9 36.9 Pulse 166 105 Resp 20 20 B/P (MAP) 157/117 (130) 131/91 (104) Pulse Ox 100 100 99 O2 Delivery Nasal Cannula Nasal Cannula Nasal Cannula O2 Flow Rate 2.00 2.00 2.00 FiO2 100 Progress Progress Note #1: Time: 20:30 Progress Note Her initial blood pressure with a good cuff was in the 130 range systolic so we initiated Identicard to slow her heart down and identify the underlying rhythm. We recognize she was in sinus tachycardia versus SVT and her after the single dose of Adenocard her heart rate slowed down to the 120s and then 1 teens so we kept a liter of IV fluids going and will seek evidence of infection. We will get some blood cultures and lactate and to a septic work-up. Covid and influenza swab. Urine, drug screen and bedside . 2 L of lactated Ringer total should be over 20 mL/kg. Because of her history of DVTs we will get a CT angiogram of her chest. Progress Note #2: Time: 21:45 Progress Note Labs are reassuring. It is unclear the source of her sepsis appearance but would be oliva to keep her on antibiotics until her blood cultures clear given her history of chemotherapy. Could be a viral syndrome. While there is no pulmonary embolism on chest CT nor is there pneumonia she has had 2 - Covid tests over the past week so I no longer suspect that very strongly. She is saying she is having pain in her limbs which could be related to her chemotherapy or could be related to DVTs. We do not have ultrasound available at this time so we will just go ahead and cover her with full dose Lovenox. Initial ECG Impression Date: Jul 20, 2020 Initial ECG Impression Time: 20:07 Initial ECG Rate: 164 Initial ECG Rhythm: S.Tach Initial ECG Intervals: Normal Initial ECG Impression: Normal Initial ECG Comparisson: Changed Comment Sinus tachycardia versus SVT. EKG #1: EKG Time: 20:16 Rhythm: Normal Sinus Comment Sinus tachycardia after a dose of 6 mg Identicard was administered slowed down to around the 90-100 range and then pick back up to around 120-130. No evidence of ST elevation or depression. EKG #2: EKG Time: 20:21 Rate: 106 Rhythm: S.Tach Intervals: Normal ECG Comparisson: Changed Comment Sinus tachycardia with no clinically relevant ST changes. Diagnostic Imaging Diagonstic Imaging: Xray Plain Films/CT/US/NM/MRI: chest Comments NAME: COLTON ORTIZ [facility] REC#: [id number] PT STATUS: REG ER : 1985 PHYSICIAN: LAWRENCE WHITESIDE APRN ADMIT DATE: 07/20/20/ER Draft Date of Exam:07/20/20 CHEST 1 VIEW, AP/PA ONLY INDICATION: Chest pain. EXAMINATION: AP view of the chest was obtained. COMPARISON: Study of 05/01/2020. Heart size and pulmonary vascularity remain within normal limits. There are postoperative findings in the anterior chest wall. No pneumothorax, consolidation or adverse change is seen. IMPRESSION: No acute abnormality or adverse change is detected. Dictated on workstation # [id number] Dict: 07/20/202035 Trans: 07/20/202037 [facility] [id number] Interpreted by: PHYLLIS VILLELA MD Electronically signed by: Reviewed: Reviewed by Me Departure Communication (Admissions) Time/Spoke to Admitting Phy: 21:35 Discussed the case with Dr. Garrett and she agrees with placement and cardiac stepdown, consultation to cardiology and she will consult with oncology in the morning. Time/Spoke to Consulting Phy: 21:35 Discussed the case with Dr. Valentine, cardiology and he agrees with placement in cardiac stepdown, Lovenox 1 mg/kg and he will see the patient. Impression Primary Impression: Sepsis Qualified Codes: A41.9 - Sepsis, unspecified organism Additional Impressions: Sustained SVT History of breast cancer in adulthood Hx antineoplastic chemotherapy Disposition: ADMITTED INPATIENT Condition: Stable Admissions Decision to Admit Reason: Admit from ER (General) Decision to Admit/Date: Jul 20, 2020 Time/Decision to Admit Time: 20:30 Departure-Patient Inst. Referrals: [facility] (PCP/Family) Primary Care Physician MAURIZIO THURMAN Jul 20, 2020 20:31
[2020-07-20 20:32] LABS: BUN/CREATININE RATIO 14
[2020-07-20 20:34] LABS: ALANINE AMINOTRANSFERASE 15 U/L (0-55)
--- NOTE | 2020-07-20 20:39 | Diagnostic Imaging Report ---
INDICATION: Chest pain. EXAMINATION: AP view of the chest was obtained. COMPARISON: Study of 05/01/2020. Heart size and pulmonary vascularity remain within normal limits. There are postoperative findings in the anterior chest wall. No pneumothorax, consolidation or adverse change is seen. IMPRESSION: No acute abnormality or adverse change is detected. Dictated by: Dictated on workstation # [id number]
[2020-07-20] MEDS ORDERED: CEFEPIME INJECTION 1,000 MG in WATER (STERILE) FOR INJECTION 10 ML IV ONE (20:45)
[2020-07-20] MEDS ORDERED: LACTATED RINGERS 1,000 ML IV ONE (20:45)
[2020-07-20 20:52] LABS: ANISOCYTOSIS SLIGHT; BAND NEUTROPHILS 9 %; LYMPHOCYTES % (MANUAL) 36 %; MONOCYTES % (MANUAL) 1 %; NEUTROPHILS % (MANUAL) 54 %
[2020-07-20] MEDS: VANCOMYCIN INJECTION 1,000 MG in NS (IVPB) 250 ML IV SCH ×2 (21:10→23:31)
[2020-07-20 21:13] LABS: BILIRUBIN,URINE NEGATIVE (NEGATIVE); CLARITY,URINE CLEAR; COLOR,URINE YELLOW; GLUCOSE, URINE (UA) NEGATIVE (NEGATIVE); KETONES,URINE NEGATIVE (NEGATIVE); LEUKOCYTE ESTERASE ,URINE TRACE (NEGATIVE); NITRITE,URINE NEGATIVE (NEGATIVE); PROTEIN,URINE NEGATIVE (NEGATIVE)
[2020-07-20 21:21] LABS: BACTERIA,URINE TRACE /HPF; TRICHOMONAS,URINE FEW /HPF; WBC,URINE 0-2 /HPF
[2020-07-20 21:26] LABS: AMPHETAMINE SCREEN, URINE NEGATIVE (NEGATIVE); BARBITURATE SCREEN URINE NEGATIVE (NEGATIVE); BENZODIAZEPINES SCREEN URINE NEGATIVE (NEGATIVE); CANNABINOID SCREEN, URINE NEGATIVE (NEGATIVE); COCAINE SCREEN URINE NEGATIVE (NEGATIVE); METHADONE STAT NEGATIVE (NEGATIVE); METHAMPHETAMINE SCREEN URINE S NEGATIVE (NEGATIVE); OPIATE SCREEN URINE NEGATIVE (NEGATIVE); OXYCODONE STAT NEGATIVE (NEGATIVE); PROPOXYPHENE STAT NEGATIVE (NEGATIVE); TRICYCLIC ANTIDEPRESSANTS SCRE NEGATIVE (NEGATIVE)
[2020-07-20] MEDS ORDERED: IOHEXOL 350 MG/ML 100 ML (OMNIPAQUE 350) VIAL IV ONE (21:30)
[2020-07-20] MEDS ORDERED: HOLD METFORMIN - RECEIVED CONTRAST 20 ML VIAL IV SCH (21:30)
[2020-07-20] MEDS ORDERED: NS 100 ML (IVPB) BAG IV ONE (21:30)
--- NOTE | 2020-07-20 21:44 | Diagnostic Imaging Report ---
PROCEDURE: CT angiography of the chest with contrast. TECHNIQUE: Multiple contiguous axial images were obtained through the chest after uneventful bolus administration of intravenous contrast. 3D reconstructed CTA MIP acquisitions were also performed. Auto Exposure Controls were utilized during the CT exam to meet ALARA standards for radiation dose reduction. INDICATION: Chest pain and tachycardia in patient with breast carcinoma. COMPARISON: 03/07/2019. There is good opacification of pulmonary arteries without intraluminal filling defect identified. Thoracic aorta is also well-opacified with normal caliber. There is no evidence of intimal abnormality. The lungs are clear and well expanded. No pathologic adenopathy is identified. There is no significant pleural or pericardial fluid. Bilateral breast implants are present. There is independent gas within the right implant. IMPRESSION: No CTA evidence of pulmonary embolism or other acute abnormality within the thorax. Dictated by: Dictated on workstation # [id number]
[2020-07-20] MEDS ORDERED: ENOXAPARIN 100 MG/1 ML (LOVENOX) SYR SC ONE (21:45)
[2020-07-20 22:52] VITALS: BP 134/88
[2020-07-20] MEDS ORDERED: ACETAMINOPHEN 325 MG TABLET PO PRN (23:00)
[2020-07-20] MEDS ORDERED: VANCOMYCIN 1000 MG/VIAL ONE (23:10)
[2020-07-20] MEDS ORDERED: NS (IVPB) 250 ML ONE (23:10)
[2020-07-20] MEDS ORDERED: fentaNYL INJ 100 MCG/2 ML AMP IVP PRN (23:15)
[2020-07-20] MEDS ORDERED: ANTACID SUSP 30 ML UDC (MYLANTA) PO PRN (23:15)
[2020-07-20] MEDS ORDERED: PROMETHAZINE INJ 25 MG/ML (PHENERGAN) AMP IVP PRN (23:15)
[2020-07-20] MEDS ORDERED: LORazepam INJ 2 MG/ML (ATIVAN) VIAL IVP PRN (23:15)
[2020-07-20] MEDS: LACTATED RINGERS 1,000 ML IV SCH (23:31)
[2020-07-20] MEDS: oxyCODONE/APAP 5/325MG (PERCOCET 5) TABLET PO PRN (23:39)
[2020-07-21] VITALS (10 sets, daily range): BP systolic 90–118; BP diastolic 51–70
[2020-07-21] MEDS: ONDANSETRON 4 MG/2 ML (SDV) Z0FRAN IVP PRN ×2 (02:26→08:14)
[2020-07-21 02:44] LABS: BASOPHILS # (AUTO) 0.1 10^3/uL (0.0-0.1); BASOPHILS % (AUTO) 1 % (0-10); EOSINOPHILS % (AUTO) 0 % (0-10); HEMATOCRIT 30 % (35-52); HEMOGLOBIN 9.4 g/dL (11.5-16.0); LYMPHOCYTES # (AUTO) 2.7 10^3/uL (1.0-4.0); LYMPHOCYTES % (AUTO) 41 % (12-44); MEAN CORPUSCULAR HEMOGLOBIN 28 pg (25-34); MEAN CORPUSCULAR HGB CONC 31 g/dL (32-36); MEAN CORPUSCULAR VOLUME 90 fL (80-99); MONOCYTES # (AUTO) 0.1 10^3/uL (0.0-1.0); MONOCYTES % (AUTO) 1 % (0-12); NEUTROPHILS # (AUTO) 3.5 10^3/uL (1.8-7.8); NEUTROPHILS % (AUTO) 54 % (42-75); PLATELET COUNT 241 10^3/uL (130-400); WHITE BLOOD COUNT 6.4 10^3/uL (4.3-11.0)
[2020-07-21] MEDS ORDERED: CEFEPIME 1,000 MG/SWFI 10 ML IV PUSH IV SCH ×2 (03:00)
[2020-07-21 03:05] LABS: ALANINE AMINOTRANSFERASE 14 U/L (0-55); ALBUMIN 3.3 GM/DL (3.2-4.5); ALKALINE PHOSPHATASE 54 U/L (40-136); BILIRUBIN,TOTAL 0.3 MG/DL (0.1-1.0); BUN/CREATININE RATIO 15; CALCIUM 8.6 MG/DL (8.5-10.1); CARBON DIOXIDE 23 MMOL/L (21-32); CHLORIDE 109 MMOL/L (98-107); CHOLESTEROL 119 MG/DL (< 200); CREATININE SERUM 0.61 MG/DL (0.60-1.30); GFR ESTIMATED > 60; GLUCOSE 102 MG/DL (70-105); HDL CHOLESTEROL 39 MG/DL (40-60); POTASSIUM 4.2 MMOL/L (3.6-5.0); SODIUM 141 MMOL/L (135-145); TOTAL PROTEIN 5.6 GM/DL (6.4-8.2); TRIGLYCERIDES 63 MG/DL (<150); VLDL CHOLESTEROL 13 MG/DL (5-40)
--- NOTE | 2020-07-21 04:17 | Pulmonary Consultation ---
History of Present Illness History of Present Illness Date Seen by Provider: Jul 21, 2020 Time Seen by Provider: 04:11 Date of Admission Allergies and Home Medications Allergies Coded Allergies: aprepitant (Verified Allergy, Severe, 05/14/20) PATIENT STATES COULD NOT BREATH fosaprepitant (Verified Allergy, Severe, 05/14/20) PATIENT STATES COULD NOT BREATH latex (Verified Allergy, Severe, BLISTERS, 08/24/17) penicillin (Verified Allergy, Severe, ITCHING, 08/24/17) Sulfa (Sulfonamide Antibiotics) (Verified Allergy, Unknown, RASH, 08/24/17) Home Medications Carbamazepine 200 Mg Tab.er.12h, 200 MG PO BID, (Reported) Diclofenac Sodium 100 Gm Gel..gram., 1 EA TP UD PRN for PAIN, (Reported) Lurasidone HCl 80 Mg Tablet, 80 MG PO HS, (Reported) Oxycodone HCl/Acetaminophen 1 Each Tablet, 1 TAB PO Q4H PRN for PAIN-MODERATE (5-7) Prescribed by: RICHELLE MULTANI on 05/01/20 1137 Quetiapine Fumarate 25 Mg Tablet, 25 MG PO DAILY, (Reported) Past Sxracic-Frapsm-Orihdz Hx Patient Social History Alcohol Use: Occasionally Uses Number of Drinks Today: II Alcohol Beverage of Choice: Vodka, Other Drug of Choice: CHRONIC OPIATE USE/ABUSE AND OVERDOSES Smoking Status: Former Smoker Type Used: Cigarettes Former Smoker, Quit: Dec 25, 2019 2nd Hand Smoke Exposure: Yes Recent Infectious Disease Expo: No Recent Hopitalizations: No Have you traveled recently?: No Immunizations Up To Date Tetanus Booster (TDap): Less than 5yrs PED Vaccines UTD: Yes Date of Pneumonia Vaccine: Feb 26, 2015 Date of Influenza Vaccine: Dec 19, 2019 Seasonal Allergies Seasonal Allergies: No Past Medical History Surgeries: Yes (Loop Recorder, R PAC, BILAT MASTECTOMY 04/01/21) Cardiac, Orthopedic, 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, Vascular Surgery Respiratory: No Asthma Currently Using CPAP: No Currently Using BIPAP: No Cardiac: Yes (PFO) Congenital Heart Disease, Deep Vein Thrombosis, High Cholesterol, Palpitations Neurological: Yes Seizure Disorder, Stroke 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 Disorders: Yes (MENORRHAGIA) Female 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 Disorders: 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 Sexually Transmitted Disease: No HIV/AIDS: No Genitourinary: Yes Kidney Stones, UTI-Chronic Gastrointestinal: Yes Irritable Bowel Musculoskeletal: Yes Degenerate Disk Disease, Foot Drop, Scoliosis, Chronic Back Pain, Fractures Endocrine: No Diabetes, Non-Insulin dep HEENT: No Loss of Vision: Bilateral Hearing Impairment: Denies Cancer: Yes Breast Did You Recieve Any Treatments: Yes What Type of Treatment Did You: Chemotherapy Psychosocial: Yes (D.I.D.) Anxiety, PTSD, Bipolar Integumentary: No Herpes Blood Disorders: Yes (HX OF HYPERCOLAGUABLE STATE) Adverse Reaction/Blood Tranf: No (N/A) Family Medical History Antiphospholipid syndrome 19 MOTHER Diabetes mellitus 19 FATHER G8 BROTHER FH: aneurysm 19 FATHER FH: lupus 19 MOTHER FHx: congestive heart failure 19 FATHER FHx: renal failure 19 MOTHER Heart murmur 19 MOTHER Lupus anticoagulant disorder 19 MOTHER Patent foramen ovale 19 FATHER Barry syndrome G8 SISTER No Pertinent Family Hx Review of Systems Time Seen by Provider: 04:21 Sepsis Event Evaluation Height, Weight, BMI Height: 5'4.00" Weight: 189lbs. 9.0oz. 85.290256nr; 49.66 BMI Method:Stated Exam Exam Vital Signs Date Time Temp Pulse Resp B/P (MAP) Pulse Ox O2 Delivery O2 Flow Rate FiO2 07/21/20 03:34 Nasal Cannula 2.00 07/21/20 03:00 84 15 113/70 (84) 100 Nasal Cannula 2.00 07/21/20 02:00 87 14 99/53 (68) 92 Nasal Cannula 2.00 07/21/20 01:00 85 07/21/20 01:00 87 16 115/66 (82) 100 Nasal Cannula 2.00 07/21/20 00:00 36.5 89 16 110/68 (82) 100 Nasal Cannula 2.00 07/20/20 22:52 36.4 104 16 134/88 (103) 100 Nasal Cannula 2.00 07/20/20 22:45 100 Nasal Cannula 2.00 07/20/20 22:39 103 20 120/76 99 Nasal Cannula 2.00 07/20/20 20:38 36.9 105 20 131/91 (104) 99 Nasal Cannula 2.00 07/20/20 20:06 100 Nasal Cannula 2.00 100 07/20/20 20:04 36.9 166 20 157/117 (130) 100 Nasal Cannula 2.00 I & O 07/21/20 07:00 Intake Total 260 ml Balance 260 ml Height & Weight Height: 5'4.00" Weight: 189lbs. 9.0oz. 85.568087zi; 49.66 BMI Method:Stated General Appearance: Anxious, Obese HEENT: PERRL/EOMI, Pharynx Normal, Moist Mucous Membranes Neck: Full Range of Motion, Normal Inspection, Non Tender, Supple Respiratory: Lungs Clear, Normal Breath Sounds, No Accessory Muscle Use (100% on 2 L by nasal cannula), No Respiratory Distress Cardiovascular: Regular Rate, Rhythm, No Edema, Normal Peripheral Pulses Capillary Refill: Less Than 3 Seconds Peripheral Pulses: 2+ Dorsalis Pedis (R), 2+ Left Dors-Pedis (L) Extremity: Normal Capillary Refill, Normal Inspection, No Pedal Edema Neurologic/Psychiatric: Alert, Oriented x3 Results Lab Laboratory Tests 07/20/20 20:04 07/21/20 02:30 Assessment/Plan Assessment/Plan SVT -Cardiology following -IVF Hx of breast cancer -Chemotherapy No Fever, No leukocytosis -No signs of pneumonia Trichomonas in urine -Start Flagyl -D/C Vanco and Cefepime BIRGIT WILLIAMSON DO Jul 21, 2020 04:17
[2020-07-21] MEDS ORDERED: VANCOMYCIN 1250 MG/NS 250 ML IVPB IV SCH ×2 (05:00)
[2020-07-21] MEDS: LACTATED RINGERS 1,000 ML IV SCH ×2 (05:13→11:51)
[2020-07-21] MEDS ORDERED: metroNIDAZOLE 500MG/100ML IVPB 100 ML IV SCH (06:00)
--- NOTE | 2020-07-21 07:40 | Diagnostic Imaging Report ---
EXAMINATION: Chest 1 view HISTORY: Chest pain. Sepsis. Followup. COMPARISON: 07/20/2020. FINDINGS: Stable right port. The lung volumes are normal. No focal consolidation is seen. No large pleural effusion or pneumothorax is seen. The cardiomediastinal silhouette is normal in size and contour. No acute osseous abnormality is seen. Surgical clips are again noted overlying the chest. IMPRESSION: 1. Stable chest without new focal consolidation or pleural effusion. Dictated by: Dictated on workstation # [id number]
[2020-07-21] MEDS: oxyCODONE/APAP 5/325MG (PERCOCET 5) TABLET PO PRN ×2 (08:15→12:54)
[2020-07-21] MEDS ORDERED: PANTOPRAZOLE 40 MG (PROTONIX) TAB PO SCH (09:00)
[2020-07-21] MEDS ORDERED: LORATADINE (CLARITIN) 10 MG TAB PO SCH (09:00)
[2020-07-21] MEDS ORDERED: ACYCLOVIR 400 MG TABLET (ZOVIRAX) PO SCH (09:00)
--- NOTE | 2020-07-21 09:35 | Consultation-Cardiology ---
HPI-Cardiology Cardiology Consultation Date of Consultation 07/21/20 Date of Admission Time Seen by Provider: 07:45 Indication: SVT HPI Cardiology was consulted for SVT. Ms. Brunner is a 35-year-old female who presented to the ED via EMS for chest pain and shortness of breath. It started immediately prior to arrival. This is a patient of Dr. Pringle who sees her for PFO. This episode of chest pain started while sitting down and had associated shortness of breath and radiation into her left arm and neck. She is currently receiving chemotherapy for breast cancer, oncology at and locally seeing Dr. Walter. At the ED, on arrival, HR in 160s. Adenosine was given to the patient and her heart rate dropped down to 110s. Home Medications & Allergies Allergies: Coded Allergies: aprepitant (Verified Allergy, Severe, 05/14/20) PATIENT STATES COULD NOT BREATH fosaprepitant (Verified Allergy, Severe, 05/14/20) PATIENT STATES COULD NOT BREATH latex (Verified Allergy, Severe, BLISTERS, 08/24/17) penicillin (Verified Allergy, Severe, ITCHING, 08/24/17) Sulfa (Sulfonamide Antibiotics) (Verified Allergy, Unknown, RASH, 08/24/17) Home Medication List Reviewed: Yes XUH-Fvjzwj-Zfxefi Hx Patient Social History Recreational Drug Use: No Drug of Choice: CHRONIC OPIATE USE/ABUSE AND OVERDOSES Smoking Status: Former Smoker Type Used: Cigarettes 2nd Hand Smoke Exposure: Yes Recent Hopitalizations: No Have you traveled recently?: No Alcohol Use?: No (sober 3 years) Immunizations Up To Date Tetanus Booster (TDap): Less than 5yrs Date of Pneumonia Vaccine: Feb 26, 2015 Date of Influenza Vaccine: Dec 19, 2019 Past Medical History Asthma PFO History of DVT HLD Hx of palpitations Seizure disorder Stroke Diabetes, non-insulin dep Breast cancer Anxiety PTSD Bipolar disorder Family Medical History Family History: Antiphospholipid syndrome 19 MOTHER Diabetes mellitus 19 FATHER G8 BROTHER FH: aneurysm 19 FATHER FH: lupus 19 MOTHER FHx: congestive heart failure 19 FATHER FHx: renal failure 19 MOTHER Heart murmur 19 MOTHER Lupus anticoagulant disorder 19 MOTHER Patent foramen ovale 19 FATHER Barry syndrome G8 SISTER Review of Systems-General Review of Systems Constitutional: chills, fever, malaise, weakness EENTM: No blurred vision, No double vision Respiratory: No cough; short of breath Cardiovascular: chest pain, palpitations Gastrointestinal: No nausea, No vomiting Genitourinary: no symptoms reported Musculoskeletal: back pain; No joint pain Skin: no symptoms reported Psychiatric/Neurological: No Symptoms Reported All Other Systems Reviewed Negative Unless Noted: Yes Reviewed Test Results Reviewed Test Results Lab Laboratory Tests Test 07/20/20 20:04 07/20/20 20:55 07/20/20 21:00 07/21/20 02:30 Range/Units White Blood Count 9.8 6.4 4.3-11.0 10^3/uL Red Blood Count 3.79 L 3.36 L 3.80-5.11 10^6/uL Hemoglobin 10.6 L 9.4 L 11.5-16.0 g/dL Hematocrit 34 L 30 L 35-52 % Mean Corpuscular Volume 90 90 80-99 fL Mean Corpuscular Hemoglobin 28 28 25-34 pg Mean Corpuscular Hemoglobin Concent 31 L 31 L 32-36 g/dL Red Cell Distribution Width 18.9 H 18.7 H 10.0-14.5 % Platelet Count 269 241 130-400 10^3/uL Mean Platelet Volume 10.0 10.0 9.0-12.2 fL Immature Granulocyte % (Auto) 2 2 % Neutrophils (%) (Auto) 65 54 42-75 % Lymphocytes (%) (Auto) 30 41 12-44 % Monocytes (%) (Auto) 1 1 0-12 % Eosinophils (%) (Auto) 0 0 0-10 % Basophils (%) (Auto) 2 1 0-10 % Neutrophils # (Auto) 6.3 3.5 1.8-7.8 10^3/uL Lymphocytes # (Auto) 3.0 2.7 1.0-4.0 10^3/uL Monocytes # (Auto) 0.1 0.1 0.0-1.0 10^3/uL Eosinophils # (Auto) 0.0 0.0 0.0-0.3 10^3/uL Basophils # (Auto) 0.2 H 0.1 0.0-0.1 10^3/uL Immature Granulocyte # (Auto) 0.2 H 0.1 0.0-0.1 10^3/uL Neutrophils % (Manual) 54 % Lymphocytes % (Manual) 36 % Monocytes % (Manual) 1 % Band Neutrophils 9 % Anisocytosis SLIGHT Prothrombin Time 13.0 12.2-14.7 SEC INR Comment 0.9 0.8-1.4 Activated Partial Thromboplast Time 45 H 24-35 SEC D-Dimer 0.80 H 0.00-0.49 UG/ML Sodium Level 140 141 135-145 MMOL/L Potassium Level 3.5 L 4.2 3.6-5.0 MMOL/L Chloride Level 106 109 H 98-107 MMOL/L Carbon Dioxide Level 21 23 21-32 MMOL/L Anion Gap 13 9 5-14 MMOL/L Blood Urea Nitrogen 10 9 7-18 MG/DL Creatinine 0.72 0.61 0.60-1.30 MG/DL Estimat Glomerular Filtration Rate > 60 > 60 BUN/Creatinine Ratio 14 15 Glucose Level 114 H 102 70-105 MG/DL Calcium Level 8.9 8.6 8.5-10.1 MG/DL Corrected Calcium 9.0 9.2 8.5-10.1 MG/DL Magnesium Level 2.0 1.6-2.4 MG/DL Total Bilirubin 0.3 0.3 0.1-1.0 MG/DL Aspartate Amino Transf (AST/SGOT) 11 11 5-34 U/L Alanine Aminotransferase (ALT/SGPT) 15 14 0-55 U/L Alkaline Phosphatase 55 54 40-136 U/L Myoglobin 26.0 10.0-92.0 NG/ML Troponin I < 0.028 0.079 H <0.028 NG/ML B-Type Natriuretic Peptide 31.9 <100.0 PG/ML Total Protein 6.4 5.6 L 6.4-8.2 GM/DL Albumin 3.9 3.3 3.2-4.5 GM/DL Urine Color YELLOW Urine Clarity CLEAR Urine pH 7.0 5-9 Urine Specific Rumsey <=1.005 1.016-1.022 Urine Protein NEGATIVE NEGATIVE Urine Glucose (UA) NEGATIVE NEGATIVE Urine Ketones NEGATIVE NEGATIVE Urine Nitrite NEGATIVE NEGATIVE Urine Bilirubin NEGATIVE NEGATIVE Urine Urobilinogen 0.2 < = 1.0 MG/DL Urine Leukocyte Esterase TRACE H NEGATIVE Urine RBC (Auto) NEGATIVE NEGATIVE Urine RBC NONE /HPF Urine WBC 0-2 /HPF Urine Squamous Epithelial Cells 2-5 /HPF Urine Crystals NONE /LPF Urine Bacteria TRACE /HPF Urine Casts NONE /LPF Urine Mucus NEGATIVE /LPF Urine Trichomonas FEW H /HPF Urine Culture Indicated CULTURE PENDING Urine Test NEGATIVE NEGATIVE Lactic Acid Level 1.78 0.50-2.00 MMOL/L Urine Opiates Screen NEGATIVE NEGATIVE Urine Oxycodone Screen NEGATIVE NEGATIVE Urine Methadone Screen NEGATIVE NEGATIVE Urine Propoxyphene Screen NEGATIVE NEGATIVE Urine Barbiturates Screen NEGATIVE NEGATIVE Ur Tricyclic Antidepressants Screen NEGATIVE NEGATIVE Urine Phencyclidine Screen NEGATIVE NEGATIVE Urine Amphetamines Screen NEGATIVE NEGATIVE Urine Methamphetamines Screen NEGATIVE NEGATIVE Urine Benzodiazepines Screen NEGATIVE NEGATIVE Urine Cocaine Screen NEGATIVE NEGATIVE Urine Cannabinoids Screen NEGATIVE NEGATIVE Coronavirus 2019 (XOCHITL) Negative Negative Group A Streptococcus Screen NEGATIVE NEGATIVE Triglycerides Level 63 <150 MG/DL Cholesterol Level 119 < 200 MG/DL LDL Cholesterol Direct 73 1-129 MG/DL VLDL Cholesterol 13 5-40 MG/DL HDL Cholesterol 39 L 40-60 MG/DL Test 07/21/20 08:00 Range/Units Troponin I 0.031 H <0.028 NG/ML Physical Exam Physical Exam Vital Signs Vital Signs - First Documented 07/20/20 07/20/20 20:04 20:06 Temp 36.9 Pulse 166 Resp 20 B/P (MAP) 157/117 (130) Pulse Ox 100 O2 Delivery Nasal Cannula O2 Flow Rate 2.00 FiO2 100 Capillary Refill : Less Than 3 Seconds Height, Weight, BMI Height: 5'4.00" Weight: 189lbs. 9.0oz. 85.799078wo; 49.66 BMI Method:Stated General Appearance: Anxious, Obese HEENT: PERRL/EOMI, Moist Mucous Membranes Neck: Full Range of Motion, Normal Inspection, Non Tender, Supple Respiratory: Lungs Clear, Normal Breath Sounds, No Accessory Muscle Use (100% on 2 L by nasal cannula), No Respiratory Distress Cardiovascular: Regular Rate, Rhythm, No Edema, Normal Peripheral Pulses Gastrointestinal: Normal Bowel Sounds, Non Tender, Soft Extremity: Normal Capillary Refill, Normal Inspection, No Pedal Edema Neurologic/Psychiatric: Alert, Oriented x3 Skin: Normal Color, Warm/Dry A/P-Cardiology Admission Diagnosis Sustained SVT Assessment/Plan PSVT, now NSR after adenosine in ED. Hx of PFO, patient of Dr. Pringle. History of stress test in 2019 that showed no evidence of any significant myocardial ischemia or infarction is seen. Echo in 2014 showed secundum atrial septal defect with [id number] shunt, EF 60%, estimated PA pressure of 15 mmHg. Will order 2D echo. Starting low-dose beta-blockers and evaluate tolerance and response Mild elevation in troponin level, type 2 MA, likely secondary to the sustained SVT. Trending down. No active chest pain at this time. EKG did not show any acute ischemic changes. Continue to monitor Suspected hyperlipidemia, no current statin. Order lipid panel. Diabetes, non-insulin dependent. Per primary team. Hx of breast cancer, has been on Taxotere which could cause cardiac arrhythmia and myocardial infarction and heart failure. Will evaluate 2D echo, discussed with Dr. Arauz Trichomonas in urine, treating with Flagyl. Per primary team. Supervisory-Addendum Brief Verification & Attestation Participated in pt care: history, MDM, physical Personally performed: exam, history, MDM, supervision of care Care discussed with: Medical Student Procedures: n/a Results interpretation: Verified all documentation Verification and Attestation of Medical Student E/M Service A medical student performed and documented this service in my presence. I reviewed and verified all information documented by the medical student and made modifications to such information, when appropriate. I personally performed the physical exam and medical decision making. I made few modifications to the note using italic font Hunter Valentine, Jul 21, 2020,10:33 ROBINSON JEONG, Jul 21, 2020 09:35 HUNTER VALENTINE MD Jul 21, 2020 10:26
[2020-07-21] MEDS ORDERED: ENOXAPARIN 100 MG/1 ML (LOVENOX) SYR SC SCH (10:00)
[2020-07-21] MEDS ORDERED: PANT40TA52 PO (12:15)
[2020-07-21] MEDS ORDERED: ASPI-789 PO (12:15)
[2020-07-21] MEDS ORDERED: ACET-2267 PO (12:15)
[2020-07-21] MEDS ORDERED: CALC10009 PO (12:15)
[2020-07-21] MEDS ORDERED: CETI10TA49 PO (12:15)
[2020-07-21] MEDS ORDERED: ONDA8TAB15 PO (12:15)
[2020-07-21] MEDS ORDERED: ACYC800T PO (12:15)
[2020-07-21] MEDS ORDERED: CYCL1DRO OU (12:15)
[2020-07-21] MEDS ORDERED: DEXA4TAB PO (12:15)
[2020-07-21] MEDS ORDERED: SORB1SOL2 PO (12:15)
[2020-07-21] MEDS ORDERED: OXYC1TAB11 PO (12:15)
[2020-07-21] MEDS ORDERED: EREN70AU2 IJ (12:15)
[2020-07-21] MEDS ORDERED: FURO20TA4 PO (12:15)
[2020-07-21] MEDS ORDERED: SUCR1TAB PO (12:15)
--- NOTE | 2020-07-21 15:25 | Discharge Summary ---
Diagnosis/Chief Complaint Date of Admission Jul 20, 2020 at 22:00 Date of Discharge 07/21/20 Admission Diagnosis Admission Diagnosis Sustained SVT Type II NH Breast Cancer Trichomonas Discharge Diagnosis See Above Discharge Summary-Simple/Stand Consultations Dr Valentine: Cardiology Discharge Physical Examination Allergies: Coded Allergies: aprepitant (Verified Allergy, Severe, 05/14/20) PATIENT STATES COULD NOT BREATH fosaprepitant (Verified Allergy, Severe, 05/14/20) PATIENT STATES COULD NOT BREATH latex (Verified Allergy, Severe, BLISTERS, 08/24/17) penicillin (Verified Allergy, Severe, ITCHING, 08/24/17) Sulfa (Sulfonamide Antibiotics) (Verified Allergy, Unknown, RASH, 08/24/17) Vitals & I&Os Vital Sign - Last 12Hours Date Time Temp Pulse Resp B/P (MAP) Pulse Ox O2 Delivery O2 Flow Rate FiO2 07/21/20 12:41 82 07/21/20 11:34 36.6 15 109/58 (75) 93 Nasal Cannula 2.00 07/20/20 20:06 100 General Appearance: Alert, Oriented X3, Cooperative, No Acute Distress HEENT: Mucous Memb Moist/[place] Respiratory: Clear to Auscultation, Normal Air Movement Cardiovascular: Regular Rate, No Murmurs Abdominal: Normal Bowel Sounds, Soft, No Tenderness, No Masses Extremities: No Edema, No Tenderness/Swelling Skin: No Rashes, No Breakdown Neuro: Normal Speech, Strength at 5/5 X4 Ext, Sensation Intact, Cranial Nerves 3-12 NL Psych/Mental Status: Mental Status NL, Mood NL Hospital Course See final discharge diagnosis. Discussion & Recommendations 35 yo F that presented with tachycardia and fatigue. 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 Patient feeling better this AM and in NSR. No signs of infection. Patient started on beta rich and seen by cardiology during admission. Tachycardia likely related to chemotherapy and oncologist was notified by Dr Valentine. Patient will have close f.u with PCP and oncology. Discharge Condition at discharge Stable Instructions to patient/family Please see electronic discharge instructions given to patient. Discharge Medications Reviewed and agree with Discharge Medication list on patient's Discharge Instruction sheet Copy Copies To 1: Nancy SIMMONS HOLLY R MD Jul 21, 2020 15:25
[2020-07-21] MEDS ORDERED: METR500T PO (15:27)
[2020-07-21] MEDS ORDERED: METO50TA7 PO (15:28)
--- NOTE | 2020-07-21 15:31 | Discharge Summary ---
Discharge [facility] Reconcile Patient Problems Problems Reviewed?: Yes Discharge Medications New, Converted or Re-Newed RX: Transmitted to Pharmacy New Medications: Metoprolol Succinate (Metoprolol Succinate) 50 Mg Tab.er.24h 50 MG PO DAILY, #30 TAB Metronidazole (Flagyl) 500 Mg Tablet 500 MG PO BID, #10 TAB Continued Medications: Acetaminophen (Tylenol Extra Strength) 500 Mg Tablet 500-1000 MG PO Q6H PRN for PAIN-MILD (1-4), TAB Acyclovir (Acyclovir) 800 Mg Tablet 800 MG PO BID PRN for CHEMOTHERAPY SORES, TAB Aspirin/Acetaminophen/Caffeine (Excedrin Migraine Caplet) 1 Each Tablet 2 EACH PO Q6-8HR PRN for Headache, TAB Calcium Carbonate (Tums Ultra) 400 Mg Tab.chew 400-800 MG PO Q6H PRN for INDIGESTION, TAB Cetirizine HCl (Zyrtec) 10 Mg Tablet 10 MG PO DAILY PRN for ALLERGY SYMPTOMS, TAB Cyclosporine (Restasis) 1 Each Droperette 1 EACH OU BID, EA Dexamethasone (Dexamethasone) 4 Mg Tablet 8 MG PO BID PRN for CHEMO TREATMENTS, TAB TAKES 2 (4MG) TABS TWICE DAILY THE DAY BEFORE, DAY OF AND DAY AFTER CHEMO Erenumab-Aooe (Aimovig Autoinjector) 140 Mg/1 Ml Auto.injct 140 MG IJ MONTHLY, EA Furosemide (Furosemide) 20 Mg Tablet 20 MG PO Q48H PRN for FLUID RETENTION, TAB Ondansetron HCl (Ondansetron HCl) 8 Mg Tablet 8 MG PO Q8H PRN for NAUSEA/VOMITING-1ST LINE, TAB Oxycodone HCl/Acetaminophen (Oxycodone-Acetaminophen 5-325) 1 Each Tablet 1 EA PO Q6H PRN for PAIN-MODERATE (5-7), TAB Pantoprazole Sodium (Pantoprazole Sodium) 40 Mg Tablet.dr 40 MG PO BID, TAB Sorbitol Solution (Sorbitol) 1 Ml Solution 15-30 ML PO TID PRN for CONSTIPATION, ML Sucralfate (Sucralfate) 1 Gm Tablet 1 GM PO QID PRN for ULCERS, TAB Patient Instructions Goal/Follow Up Appt: You have an appt with your PCP Nancy So on 07/29 @ 1140 AM for hospital f.u Activity & Diet Discharge Diet: Cardiac Diet Activity as Tolerated: Yes Copy Copies To 1: Nancy SIMMONS HOLLY R MD Jul 21, 2020 15:28
[2020-07-21] MEDS ORDERED: LURASIDONE 80 MG PO SCH (21:00)
== END 2020-07-21 16:44 | disposition home or self-care (01) | DRG 281 ==
LOC: EDUNIT# 20:04 → ER 20:06 → ICU 22:00
PROVIDERS: ADMIT Internal Medicine; ATTEND Family Medicine
DX: I47.1 Supraventricular tachycardia (principal); I21.A1 Myocardial infarction type 2; Z68.42 Body mass index [BMI] 45.0-49.9, adult; Q21.1 Atrial septal defect; T45.1X5A Adverse effect of antineoplastic and immunosuppressive drugs, initial encounter; E78.00 Pure hypercholesterolemia, unspecified; Z20.822 Contact with and (suspected) exposure to COVID-19; G40.909 Epilepsy, unspecified, not intractable, without status epilepticus; G89.29 Other chronic pain; M54.9 Dorsalgia, unspecified; M41.9 Scoliosis, unspecified; K58.9 Irritable bowel syndrome, unspecified; F41.9 Anxiety disorder, unspecified; F31.9 Bipolar disorder, unspecified; F43.10 Post-traumatic stress disorder, unspecified; E11.9 Type 2 diabetes mellitus without complications; C50.919 Malignant neoplasm of unspecified site of unspecified female breast; E66.9 Obesity, unspecified; J45.909 Unspecified asthma, uncomplicated; A59.00 Urogenital trichomoniasis, unspecified; Z86.718 Personal history of other venous thrombosis and embolism; Z88.0 Allergy status to penicillin; Z88.2 Allergy status to sulfonamides; Z91.040 Latex allergy status; Z87.891 Personal history of nicotine dependence; Z86.73 Personal history of transient ischemic attack (TIA), and cerebral infarction without residual deficits
CPT/HCPCS: 36415; 71045; 71275; 80053; 80061; 80306; 81000; 83605; 83735; 83874; 83880; 84484; 84703; 85007; 85025; 85027; 85379; 85610; 85730; 87040; 87088; 87430; 87635; 87804; 93005; 93041; 93306

== ENCOUNTER 2020-07-29 05:40 | Outpatient (CLI) | payer MEDICARE, MEDICAID ==
[~2020-07-29] VITALS: Ht 155 cm; Wt 113.0 kg
[~2020-07-29 05:40] MED LIST changes: +ACYC800T PO; +ASPI-789 PO; +CALC10009 PO; +CETI10TA49 PO; +CYCL1DRO OU; +DEXA4TAB PO; +EREN70AU2 IJ; +FURO20TA4 PO; +METO50TA7 PO; +METR500T PO; +ONDA8TAB15 PO; +PANT40TA52 PO; +SORB1SOL2 PO; +SUCR1TAB PO
== END 2020-07-30 11:48 | disposition home or self-care (01) ==
LOC: PREOP 05:40
PROVIDERS: ATTEND Surgery
DX: Z01.818 Encounter for other preprocedural examination (principal)

== ENCOUNTER 2020-07-30 13:52 | Outpatient (RCR) | payer MEDICARE, MEDICAID ==
[2020-05-08 11:02] LABS: BASOPHILS # (AUTO) 0.1 10^3/uL (0.0-0.1); BASOPHILS % (AUTO) 1 % (0-10); EOSINOPHILS % (AUTO) 0 % (0-10); HEMATOCRIT 37 % (35-52); HEMOGLOBIN 12.1 g/dL (11.5-16.0); LYMPHOCYTES # (AUTO) 3.1 10^3/uL (1.0-4.0); LYMPHOCYTES % (AUTO) 37 % (12-44); MEAN CORPUSCULAR HEMOGLOBIN 29 pg (25-34); MEAN CORPUSCULAR HGB CONC 33 g/dL (32-36); MEAN CORPUSCULAR VOLUME 88 fL (80-99); MEAN PLATELET VOLUME 9.5 fL (9.0-12.2); MONOCYTES # (AUTO) 0.6 10^3/uL (0.0-1.0); MONOCYTES % (AUTO) 7 % (0-12); NEUTROPHILS # (AUTO) 4.6 10^3/uL (1.8-7.8); NEUTROPHILS % (AUTO) 55 % (42-75); PLATELET COUNT 335 10^3/uL (130-400); WHITE BLOOD COUNT 8.4 10^3/uL (4.3-11.0)
[2020-05-08 11:31] LABS: ALANINE AMINOTRANSFERASE 12 U/L (0-55); ALKALINE PHOSPHATASE 39 U/L (40-136); BILIRUBIN,TOTAL 0.4 MG/DL (0.1-1.0); BUN/CREATININE RATIO 12; CALCIUM 9.6 MG/DL (8.5-10.1); CARBON DIOXIDE 20 MMOL/L (21-32); CHLORIDE 109 MMOL/L (98-107); CREATININE SERUM 0.69 MG/DL (0.60-1.30); GFR ESTIMATED > 60; GLUCOSE 96 MG/DL (70-105); POTASSIUM 4.4 MMOL/L (3.6-5.0); SODIUM 137 MMOL/L (135-145); TOTAL PROTEIN 7.2 GM/DL (6.4-8.2)
[2020-05-20 11:33] LABS: BASOPHILS # (AUTO) 0.1 10^3/uL (0.0-0.1); BASOPHILS % (AUTO) 1 % (0-10); EOSINOPHILS # (AUTO) 0.1 10^3/uL (0.0-0.3); EOSINOPHILS % (AUTO) 1 % (0-10); HEMATOCRIT 37 % (35-52); HEMOGLOBIN 11.8 g/dL (11.5-16.0); LYMPHOCYTES # (AUTO) 4.3 10^3/uL (1.0-4.0); LYMPHOCYTES % (AUTO) 34 % (12-44); MEAN CORPUSCULAR HEMOGLOBIN 28 pg (25-34); MEAN CORPUSCULAR HGB CONC 32 g/dL (32-36); MEAN CORPUSCULAR VOLUME 87 fL (80-99); MEAN PLATELET VOLUME 10.8 fL (9.0-12.2); MONOCYTES # (AUTO) 1.6 10^3/uL (0.0-1.0); MONOCYTES % (AUTO) 12 % (0-12); NEUTROPHILS # (AUTO) 5.8 10^3/uL (1.8-7.8); NEUTROPHILS % (AUTO) 45 % (42-75); PLATELET COUNT 315 10^3/uL (130-400); WHITE BLOOD COUNT 12.9 10^3/uL (4.3-11.0)
[2020-05-20 11:48] LABS: BUN/CREATININE RATIO 10; CALCIUM 9.5 MG/DL (8.5-10.1); CARBON DIOXIDE 24 MMOL/L (21-32); CHLORIDE 107 MMOL/L (98-107); CREATININE SERUM 0.67 MG/DL (0.60-1.30); GFR ESTIMATED > 60; GLUCOSE 97 MG/DL (70-105); MAGNESIUM 1.7 MG/DL (1.6-2.4); POTASSIUM 4.4 MMOL/L (3.6-5.0); SODIUM 139 MMOL/L (135-145)
[2020-05-28 14:03] LABS: BASOPHILS # (AUTO) 0.1 10^3/uL (0.0-0.1); BASOPHILS % (AUTO) 1 % (0-10); EOSINOPHILS % (AUTO) 0 % (0-10); HEMATOCRIT 37 % (35-52); HEMOGLOBIN 11.7 g/dL (11.5-16.0); LYMPHOCYTES # (AUTO) 3.7 10^3/uL (1.0-4.0); LYMPHOCYTES % (AUTO) 35 % (12-44); MEAN CORPUSCULAR HEMOGLOBIN 28 pg (25-34); MEAN CORPUSCULAR HGB CONC 32 g/dL (32-36); MEAN CORPUSCULAR VOLUME 88 fL (80-99); MEAN PLATELET VOLUME 9.9 fL (9.0-12.2); MONOCYTES # (AUTO) 0.7 10^3/uL (0.0-1.0); MONOCYTES % (AUTO) 7 % (0-12); NEUTROPHILS # (AUTO) 5.6 10^3/uL (1.8-7.8); NEUTROPHILS % (AUTO) 53 % (42-75); PLATELET COUNT 215 10^3/uL (130-400); WHITE BLOOD COUNT 10.5 10^3/uL (4.3-11.0)
[2020-05-28 14:27] LABS: BUN/CREATININE RATIO 17; CALCIUM 9.4 MG/DL (8.5-10.1); CARBON DIOXIDE 23 MMOL/L (21-32); CHLORIDE 106 MMOL/L (98-107); CREATININE SERUM 0.71 MG/DL (0.60-1.30); GFR ESTIMATED > 60; GLUCOSE 110 MG/DL (70-105); MAGNESIUM 1.6 MG/DL (1.6-2.4); POTASSIUM 4.3 MMOL/L (3.6-5.0); SODIUM 137 MMOL/L (135-145)
[2020-06-04 09:48] LABS: HEMOGLOBIN 11.3 g/dL (11.5-16.0); WHITE BLOOD COUNT 13.3 10^3/uL (4.3-11.0)
[2020-06-04 09:49] LABS: BASOPHILS % (AUTO) 0 % (0-10); EOSINOPHILS % (AUTO) 0 % (0-10); HEMATOCRIT 35 % (35-52); LYMPHOCYTES # (AUTO) 2.3 10^3/uL (1.0-4.0); LYMPHOCYTES % (AUTO) 17 % (12-44); MEAN CORPUSCULAR HEMOGLOBIN 28 pg (25-34); MEAN CORPUSCULAR HGB CONC 32 g/dL (32-36); MEAN CORPUSCULAR VOLUME 88 fL (80-99); MEAN PLATELET VOLUME 10.1 fL (9.0-12.2); MONOCYTES # (AUTO) 0.9 10^3/uL (0.0-1.0); MONOCYTES % (AUTO) 7 % (0-12); NEUTROPHILS % (AUTO) 75 % (42-75); PLATELET COUNT 437 10^3/uL (130-400)
[2020-06-04 10:08] LABS: ALANINE AMINOTRANSFERASE 22 U/L (0-55); ALBUMIN 4.1 GM/DL (3.2-4.5); ALKALINE PHOSPHATASE 43 U/L (40-136); BILIRUBIN,TOTAL 0.3 MG/DL (0.1-1.0); BUN/CREATININE RATIO 16; CALCIUM 9.4 MG/DL (8.5-10.1); CARBON DIOXIDE 20 MMOL/L (21-32); CHLORIDE 109 MMOL/L (98-107); CREATININE SERUM 0.74 MG/DL (0.60-1.30); GFR ESTIMATED > 60; GLUCOSE 114 MG/DL (70-105); MAGNESIUM 2.4 MG/DL (1.6-2.4); POTASSIUM 3.8 MMOL/L (3.6-5.0); SODIUM 139 MMOL/L (135-145); TOTAL PROTEIN 7.3 GM/DL (6.4-8.2)
[2020-06-11 11:17] LABS: BASOPHILS # (AUTO) 0.1 10^3/uL (0.0-0.1); BASOPHILS % (AUTO) 0 % (0-10); EOSINOPHILS # (AUTO) 0.1 10^3/uL (0.0-0.3); EOSINOPHILS % (AUTO) 0 % (0-10); HEMATOCRIT 34 % (35-52); HEMOGLOBIN 11.1 g/dL (11.5-16.0); LYMPHOCYTES # (AUTO) 4.2 10^3/uL (1.0-4.0); LYMPHOCYTES % (AUTO) 21 % (12-44); MEAN CORPUSCULAR HEMOGLOBIN 28 pg (25-34); MEAN CORPUSCULAR HGB CONC 32 g/dL (32-36); MEAN CORPUSCULAR VOLUME 88 fL (80-99); MONOCYTES # (AUTO) 2.5 10^3/uL (0.0-1.0); MONOCYTES % (AUTO) 13 % (0-12); NEUTROPHILS # (AUTO) 9.9 10^3/uL (1.8-7.8); NEUTROPHILS % (AUTO) 50 % (42-75); PLATELET COUNT 355 10^3/uL (130-400); WHITE BLOOD COUNT 20.1 10^3/uL (4.3-11.0)
[2020-06-11 11:42] LABS: BUN/CREATININE RATIO 13; CALCIUM 9.4 MG/DL (8.5-10.1); CARBON DIOXIDE 24 MMOL/L (21-32); CHLORIDE 105 MMOL/L (98-107); CREATININE SERUM 0.68 MG/DL (0.60-1.30); GFR ESTIMATED > 60; GLUCOSE 106 MG/DL (70-105); MAGNESIUM 1.7 MG/DL (1.6-2.4); POTASSIUM 4.4 MMOL/L (3.6-5.0); SODIUM 138 MMOL/L (135-145)
[2020-06-25 11:00] LABS: BASOPHILS % (AUTO) 0 % (0-10); EOSINOPHILS % (AUTO) 0 % (0-10); HEMATOCRIT 35 % (35-52); HEMOGLOBIN 11.4 g/dL (11.5-16.0); LYMPHOCYTES # (AUTO) 1.6 10^3/uL (1.0-4.0); LYMPHOCYTES % (AUTO) 16 % (12-44); MEAN CORPUSCULAR HEMOGLOBIN 28 pg (25-34); MEAN CORPUSCULAR HGB CONC 33 g/dL (32-36); MEAN CORPUSCULAR VOLUME 88 fL (80-99); MEAN PLATELET VOLUME 9.6 fL (9.0-12.2); MONOCYTES # (AUTO) 0.3 10^3/uL (0.0-1.0); MONOCYTES % (AUTO) 3 % (0-12); NEUTROPHILS # (AUTO) 7.9 10^3/uL (1.8-7.8); NEUTROPHILS % (AUTO) 80 % (42-75); PLATELET COUNT 344 10^3/uL (130-400); WHITE BLOOD COUNT 9.9 10^3/uL (4.3-11.0)
[2020-06-25 11:24] LABS: ALANINE AMINOTRANSFERASE 14 U/L (0-55); ALBUMIN 4.1 GM/DL (3.2-4.5); ALKALINE PHOSPHATASE 52 U/L (40-136); BILIRUBIN,TOTAL 0.3 MG/DL (0.1-1.0); BUN/CREATININE RATIO 13; CALCIUM 9.3 MG/DL (8.5-10.1); CARBON DIOXIDE 20 MMOL/L (21-32); CHLORIDE 107 MMOL/L (98-107); GFR ESTIMATED > 60; GLUCOSE 178 MG/DL (70-105); MAGNESIUM 1.8 MG/DL (1.6-2.4); POTASSIUM 3.7 MMOL/L (3.6-5.0); SODIUM 138 MMOL/L (135-145); TOTAL PROTEIN 7.4 GM/DL (6.4-8.2)
[2020-07-16 09:57] LABS: BASOPHILS % (AUTO) 0 % (0-10); EOSINOPHILS % (AUTO) 0 % (0-10); HEMATOCRIT 33 % (35-52); HEMOGLOBIN 10.5 g/dL (11.5-16.0); LYMPHOCYTES # (AUTO) 1.7 10^3/uL (1.0-4.0); LYMPHOCYTES % (AUTO) 17 % (12-44); MEAN CORPUSCULAR HEMOGLOBIN 28 pg (25-34); MEAN CORPUSCULAR HGB CONC 32 g/dL (32-36); MEAN CORPUSCULAR VOLUME 89 fL (80-99); MEAN PLATELET VOLUME 9.2 fL (9.0-12.2); MONOCYTES # (AUTO) 1.1 10^3/uL (0.0-1.0); MONOCYTES % (AUTO) 11 % (0-12); NEUTROPHILS % (AUTO) 71 % (42-75); PLATELET COUNT 362 10^3/uL (130-400); WHITE BLOOD COUNT 9.9 10^3/uL (4.3-11.0)
[2020-07-16 10:19] LABS: ALANINE AMINOTRANSFERASE 15 U/L (0-55); ALBUMIN 4.1 GM/DL (3.2-4.5); ALKALINE PHOSPHATASE 39 U/L (40-136); BILIRUBIN,TOTAL 0.2 MG/DL (0.1-1.0); BUN/CREATININE RATIO 10; CALCIUM 9.4 MG/DL (8.5-10.1); CARBON DIOXIDE 21 MMOL/L (21-32); CHLORIDE 107 MMOL/L (98-107); CREATININE SERUM 0.68 MG/DL (0.60-1.30); GFR ESTIMATED > 60; GLUCOSE 115 MG/DL (70-105); MAGNESIUM 1.8 MG/DL (1.6-2.4); POTASSIUM 3.8 MMOL/L (3.6-5.0); SODIUM 140 MMOL/L (135-145); TOTAL PROTEIN 7.1 GM/DL (6.4-8.2)
[~2020-07-30] VITALS: Ht 157.5 cm; Wt 105.7 kg
[~2020-07-30 13:52] MED LIST changes: +ACYC-112 PO; -ACYC800T PO; +FAMOTIDINE 20MG/2ML IV (CANCER CTR) IV SCH; +FAMOTIDINE 20MG/2ML IV (CANCER CTR) ONE; +FOSAPREPITANT (CANCER CENTER) 150 MG in NS (IVPB) CANCER CENTER ONLY 150 ML IV SCH; +LORazepam INJ 2 MG/ML VIAL CANCER CTR IV SCH; +LORazepam INJ 2 MG/ML VIAL CANCER CTR ONE; +NS IV 1000 ML (CANCER CTR) 1,000 ML ONE; +NS IV 1000 ML (CANCER CTR) IV SCH; +PEGFILGRASTIM-BMEZ 6 MG/0.6 ML ZIEXTENZO SQ SCH; +diphenhydrAMINE 25 MG TAB (BENADRYL) CANCER CENTER PO ONE; +diphenhydrAMINE 50 MG/ML INJ (CANCER CENTER) IV PRN; +diphenhydrAMINE 50 MG/ML INJ (CANCER CENTER) ONE; +methylPREDNISolone 125 MG/2 ML (SOLU-MEDROL) CANCER CTR ONE
[2020-07-30 14:16] LABS: BASOPHILS % (AUTO) 1 % (0-10); EOSINOPHILS % (AUTO) 0 % (0-10); HEMATOCRIT 35 % (35-52); HEMOGLOBIN 10.9 g/dL (11.5-16.0); LYMPHOCYTES # (AUTO) 2.8 10^3/uL (1.0-4.0); LYMPHOCYTES % (AUTO) 39 % (12-44); MEAN CORPUSCULAR HEMOGLOBIN 28 pg (25-34); MEAN CORPUSCULAR HGB CONC 31 g/dL (32-36); MEAN CORPUSCULAR VOLUME 89 fL (80-99); MEAN PLATELET VOLUME 9.9 fL (9.0-12.2); MONOCYTES # (AUTO) 0.6 10^3/uL (0.0-1.0); MONOCYTES % (AUTO) 8 % (0-12); NEUTROPHILS # (AUTO) 3.8 10^3/uL (1.8-7.8); NEUTROPHILS % (AUTO) 52 % (42-75); PLATELET COUNT 318 10^3/uL (130-400); WHITE BLOOD COUNT 7.3 10^3/uL (4.3-11.0)
[2020-07-30 14:32] LABS: BUN/CREATININE RATIO 11; CALCIUM 9.1 MG/DL (8.5-10.1); CARBON DIOXIDE 21 MMOL/L (21-32); CHLORIDE 103 MMOL/L (98-107); CREATININE SERUM 0.73 MG/DL (0.60-1.30); GFR ESTIMATED > 60; GLUCOSE 87 MG/DL (70-105); POTASSIUM 4.2 MMOL/L (3.6-5.0); SODIUM 137 MMOL/L (135-145)
== END 2020-08-06 | disposition home or self-care (01) ==
LOC: ONC 13:52
PROVIDERS: ATTEND Internal Medicine Hematology & Oncology
DX: Z45.2 Encounter for adjustment and management of vascular access device (principal); C50.411 Malignant neoplasm of upper-outer quadrant of right female breast; C20 Malignant neoplasm of rectum; E11.9 Type 2 diabetes mellitus without complications; D50.9 Iron deficiency anemia, unspecified; E78.5 Hyperlipidemia, unspecified; K21.9 Gastro-esophageal reflux disease without esophagitis; F31.81 Bipolar II disorder; F41.9 Anxiety disorder, unspecified; Z88.1 Allergy status to other antibiotic agents; Z90.11 Acquired absence of right breast and nipple
CPT/HCPCS: 36591; 80048; 80053; 83735; 85025; 96372; 96375; 96413; 96417; 99214

== ENCOUNTER 2020-08-05 07:25 | Day surgery (SDC) | payer MEDICARE, MEDICAID ==
[~2020-08-05] VITALS: Ht 155 cm; Wt 109.0 kg
[~2020-08-05 07:25] MED LIST changes: -FAMOTIDINE 20MG/2ML IV (CANCER CTR) IV SCH; -FAMOTIDINE 20MG/2ML IV (CANCER CTR) ONE; -FOSAPREPITANT (CANCER CENTER) 150 MG in NS (IVPB) CANCER CENTER ONLY 150 ML IV SCH; +LACTATED RINGERS 1,000 ML IV ONE; -LORazepam INJ 2 MG/ML VIAL CANCER CTR IV SCH; -LORazepam INJ 2 MG/ML VIAL CANCER CTR ONE; -NS IV 1000 ML (CANCER CTR) 1,000 ML ONE; -NS IV 1000 ML (CANCER CTR) IV SCH; -PEGFILGRASTIM-BMEZ 6 MG/0.6 ML ZIEXTENZO SQ SCH; -diphenhydrAMINE 25 MG TAB (BENADRYL) CANCER CENTER PO ONE; -diphenhydrAMINE 50 MG/ML INJ (CANCER CENTER) IV PRN; -diphenhydrAMINE 50 MG/ML INJ (CANCER CENTER) ONE; -methylPREDNISolone 125 MG/2 ML (SOLU-MEDROL) CANCER CTR ONE
[2020-08-05] MEDS ORDERED: LACTATED RINGERS 1,000 ML IV STA (07:34)
[2020-08-05 08:01] VITALS: BP 101/77
[2020-08-05] MEDS ORDERED: PROPOFOL INJECTION 50 ML IV ONE ×2 (08:31→08:50)
[2020-08-05] MEDS ORDERED: MIDAZOLAM 2 MG/2 ML (VERSED) VIAL ONE (08:31)
--- NOTE | 2020-08-05 08:43 | Progress Note-Pre Operative ---
Pre-Operative Progress Note H&P Reviewed The H&P was reviewed, patient examined and no changes noted. Date Seen by Provider: Aug 05, 2020 Time Seen by Provider: 08:42 Date H&P Reviewed: Aug 05, 2020 Time H&P Reviewed: 08:42 Pre-Operative Diagnosis: blood in stool SHRAVAN WALSH DO Aug 05, 2020 08:43
[2020-08-05 09:15] VITALS: BP 112/74
--- NOTE | 2020-08-05 09:18 | Progress Note-Post Operative ---
Post-Operative Progess Note Surgeon (s)/Car Rider (s) Surgeon SHRAVAN WALSH DO Car Rider: na Pre-Operative Diagnosis blood in stool Post-Operative Diagnosis poor prep Procedure & Operative Findings Date of Procedure 08/05/20 Procedure Performed/Findings flex sig Anesthesia Type per glass fitter Estimated Blood Loss Estimated blood loss (mL): none Specimens/Packing Specimens Removed na SHRAVAN WALSH DO Aug 05, 2020 09:18
[2020-08-05 09:20] VITALS: BP 109/61
--- NOTE | 2020-08-05 09:43 | Discharge Inst-Simple/Standard ---
Discharge Inst-Standard Patient Instructions/Follow Up Plan of Care/Instructions/FU: clear liquids today and repeat prep today. nothing to drink after midnight and we will repeat colonoscopy tomorrow. Activity as Tolerated: Yes Discharge Diet: Liquid Diet (clera liquids nothing to drink after midnight.) SHRAVAN WALSH DO Aug 05, 2020 09:43
[2020-08-05 09:52] VITALS: BP 112/76
--- NOTE | 2020-08-05 11:08 | Anesthesia-General Post-Op ---
MAC Patient Condition Mental Status/LOC: Same as Preop Cardiovascular: Satisfactory Nausea/Vomiting: Absent Respiratory: Satisfactory Pain: Controlled Complications: Absent Post Op Complications Complications None Follow Up Care/Instructions Patient Instructions None needed. Anesthesiology Discharge Order Discharge Order Patient is doing well, no complaints, stable vital signs, no apparent adverse anesthesia problems. No complications reported per nursing. JACY MAGAÑA CRNA Aug 05, 2020 11:08
--- NOTE | 2020-08-05 12:51 | OPERATIVE REPORT ---
DATE OF SERVICE: 08/05/2020 PREOPERATIVE DIAGNOSIS: Blood in stool. POSTOPERATIVE DIAGNOSIS: Poor prep. PROCEDURE: Flexible sigmoidoscopy. SURGEON: Shravan Llamas DO ANESTHESIA: Per GATE AGENT. ESTIMATED BLOOD LOSS: None. COMPLICATIONS: None. INDICATIONS: The patient is a 35-year-old female with blood in stool. She understands risks and benefits of procedure and wished to proceed with procedure. Consent was signed in the chart. DESCRIPTION OF PROCEDURE: The patient was taken to the endoscopy suite, placed in left lateral recumbent position. Timeout was performed. Digital rectal exam was performed, a small sentinel pile. No evidence of fissure at this time. No other palpable polyps, masses or ulcerations. Scope was inserted in the rectum and advanced through the rectum into the sigmoid and into the transverse colon without difficulty. Then encountered in the right colon, significant stool burden, was unable to irrigate and suction this for adequate visualization could not be performed. Therefore, the scope was then slowly retracted back. No polyps, masses or ulcerations or polyps visualized within the transverse, descending, sigmoid and rectum. Scope was then slowly retracted back until completely removed. The patient tolerated procedure well without any complications. RECOMMENDATIONS: The patient will repeat prep today and have colonoscopy performed tomorrow. Job ID: [id number] DocumentID: [id number] Dictated Date: 08/05/2020 09:19:55 Animal Behaviourist Date: 08/05/2020 12:50:36 Dictated By: SHRAVAN LLAMAS DO [facility]
== END 2020-08-05 09:53 | disposition home or self-care (01) ==
LOC: ENDO 07:25
PROVIDERS: ATTEND Surgery
DX: K92.1 Melena (principal); E11.9 Type 2 diabetes mellitus without complications; E78.5 Hyperlipidemia, unspecified; D50.9 Iron deficiency anemia, unspecified; F41.9 Anxiety disorder, unspecified; F43.12 Post-traumatic stress disorder, chronic; G40.909 Epilepsy, unspecified, not intractable, without status epilepticus; Z79.02 Long term (current) use of antithrombotics/antiplatelets; Z88.0 Allergy status to penicillin; Z88.2 Allergy status to sulfonamides; Z91.018 Allergy to other foods; Z88.5 Allergy status to narcotic agent; Z91.040 Latex allergy status; Z87.891 Personal history of nicotine dependence
CPT/HCPCS: 84703

== ENCOUNTER 2020-08-06 07:00 | Day surgery (SDC) | payer MEDICARE, MEDICAID ==
[~2020-08-06] VITALS: Ht 157.5 cm; Wt 124.7 kg
[2020-08-06] VITALS (8 sets, daily range): BP systolic 101–117; BP diastolic 51–74
[~2020-08-06 07:00] MED LIST changes: -LACTATED RINGERS 1,000 ML IV ONE
[2020-08-06] MEDS ORDERED: LACTATED RINGERS 1,000 ML IV STA (07:06)
[2020-08-06] MEDS ORDERED: LACTATED RINGERS 1,000 ML IV ONE (07:07)
[2020-08-06] MEDS ORDERED: MIDAZOLAM 2 MG/2 ML (VERSED) VIAL ONE (07:11)
[2020-08-06] MEDS ORDERED: PROPOFOL INJECTION 50 ML IV ONE ×2 (07:11→07:43)
[2020-08-06] MEDS ORDERED: KETAMINE/NaCl 50 MG/5 ML SYRINGE (ED ONLY) ONE (07:23)
--- NOTE | 2020-08-06 08:00 | Anesthesia-General Post-Op ---
MAC Patient Condition Mental Status/LOC: Same as Preop Cardiovascular: Satisfactory Nausea/Vomiting: Absent Respiratory: Satisfactory Pain: Controlled Complications: Absent Post Op Complications Complications None Follow Up Care/Instructions Patient Instructions None needed. Anesthesiology Discharge Order Discharge Order Patient is doing well, no complaints, stable vital signs, no apparent adverse anesthesia problems. No complications reported per nursing. NALLELY HUSAIN CRNA Aug 06, 2020 08:00
--- NOTE | 2020-08-06 08:12 | Progress Note-Post Operative ---
Post-Operative Progess Note Surgeon (s)/Dry Kiln Loader (s) Surgeon SHRAVAN WALSH DO Dry Kiln Loader: na Pre-Operative Diagnosis blood in stool Post-Operative Diagnosis sentinel ita, diverticulosis Procedure & Operative Findings Date of Procedure 08/06/20 Procedure Performed/Findings colonoscopy Anesthesia Type per compliance representative dealer Estimated Blood Loss Estimated blood loss (mL): none Specimens/Packing Specimens Removed na SHRAVAN WALSH DO Aug 06, 2020 08:12
--- NOTE | 2020-08-06 08:20 | Discharge Inst-Simple/Standard ---
Discharge Inst-Standard Patient Instructions/Follow Up Plan of Care/Instructions/FU: Follow up Muriel 5 years. If continues to have bleeding be seen at that time. Activity as Tolerated: Yes Discharge Diet: Regular Diet (high fiber) SHRAVAN WALSH DO Aug 06, 2020 08:20
[2020-08-06 09:34] LABS: BASOPHILS % (AUTO) 0 % (0-10); EOSINOPHILS % (AUTO) 1 % (0-10); HEMATOCRIT 33 % (35-52); HEMOGLOBIN 10.4 g/dL (11.5-16.0); LYMPHOCYTES # (AUTO) 2.4 10^3/uL (1.0-4.0); LYMPHOCYTES % (AUTO) 41 % (12-44); MEAN CORPUSCULAR HEMOGLOBIN 28 pg (25-34); MEAN CORPUSCULAR HGB CONC 31 g/dL (32-36); MEAN CORPUSCULAR VOLUME 90 fL (80-99); MEAN PLATELET VOLUME 9.3 fL (9.0-12.2); MONOCYTES # (AUTO) 0.6 10^3/uL (0.0-1.0); MONOCYTES % (AUTO) 10 % (0-12); NEUTROPHILS # (AUTO) 2.8 10^3/uL (1.8-7.8); NEUTROPHILS % (AUTO) 48 % (42-75); PLATELET COUNT 351 10^3/uL (130-400); WHITE BLOOD COUNT 5.9 10^3/uL (4.3-11.0)
[2020-08-06 09:51] LABS: ALANINE AMINOTRANSFERASE 14 U/L (0-55); ALBUMIN 4.1 GM/DL (3.2-4.5); ALKALINE PHOSPHATASE 42 U/L (40-136); BILIRUBIN,TOTAL 0.6 MG/DL (0.1-1.0); BUN/CREATININE RATIO 13; CALCIUM 9.4 MG/DL (8.5-10.1); CARBON DIOXIDE 26 MMOL/L (21-32); CHLORIDE 105 MMOL/L (98-107); CREATININE SERUM 0.69 MG/DL (0.60-1.30); GFR ESTIMATED > 60; GLUCOSE 93 MG/DL (70-105); POTASSIUM 4.3 MMOL/L (3.6-5.0); SODIUM 139 MMOL/L (135-145); TOTAL PROTEIN 7.2 GM/DL (6.4-8.2)
--- NOTE | 2020-08-06 12:52 | OPERATIVE REPORT ---
DATE OF SERVICE: 08/06/2020 PREOPERATIVE DIAGNOSIS: Blood in stools. POSTOPERATIVE DIAGNOSIS: Diverticulosis, sentinel pile, internal hemorrhoids minimal. PROCEDURE PERFORMED: Colonoscopy. SURGEON: Shravan Llamas DO. ANESTHESIA: Per FILAMENT WOUND PARTS FABRICATOR. ESTIMATED BLOOD LOSS: None. COMPLICATIONS: None. INDICATIONS FOR PROCEDURE: The patient is a 35-year-old female with some bright red blood per rectum. She understands risks and benefits of the procedure and wished to proceed with the procedure. Consent was signed in the chart. DESCRIPTION OF PROCEDURE: The patient was taken to the endoscopy suite and placed in the left recumbent position. Timeout was performed. Digital rectal exam was performed noting sentinel pile, posterior, some slight internal hemorrhoids. Scope was inserted in the rectum and advanced all the way to cecum with minimal difficulty. Prep was adequate. Scope was then slowly retracted back. There were no polyps, masses or ulcerations within the cecum, ascending, transverse and descending colon. In the sigmoid colon, there was a little bit very minimal diverticulosis. The scope was then continuously retracted back in the rectum, where it was also retroflexed just noting some sentinel pile and very minimal internal hemorrhoidal disease. Scope was returned to its normal position, slowly withdrawn until completely removed. The patient tolerated the procedure well without any complications. She was taken to the recovery room in stable condition. RECOMMENDATIONS: The patient recommended high fiber diet. If continues to have bleeding, she should be seen at that time, otherwise have repeat colonoscopy in five years. Job ID: [id number] DocumentID: [id number] Dictated Date: 08/06/2020 08:24:45 Chemical Operator Date: 08/06/2020 12:51:10 Dictated By: SHRAVAN LLAMAS DO
== END 2020-08-06 09:25 | disposition home or self-care (01) ==
LOC: ENDO 07:00
PROVIDERS: ATTEND Surgery
DX: K92.1 Melena (principal); K64.4 Residual hemorrhoidal skin tags; K57.30 Diverticulosis of large intestine without perforation or abscess without bleeding; I25.10 Atherosclerotic heart disease of native coronary artery without angina pectoris; J45.909 Unspecified asthma, uncomplicated; F41.9 Anxiety disorder, unspecified; F43.10 Post-traumatic stress disorder, unspecified; K21.9 Gastro-esophageal reflux disease without esophagitis; E11.9 Type 2 diabetes mellitus without complications; M19.90 Unspecified osteoarthritis, unspecified site; E78.5 Hyperlipidemia, unspecified; G40.909 Epilepsy, unspecified, not intractable, without status epilepticus; Z79.899 Other long term (current) drug therapy; Z79.02 Long term (current) use of antithrombotics/antiplatelets; F43.12 Post-traumatic stress disorder, chronic; D50.9 Iron deficiency anemia, unspecified; Z88.2 Allergy status to sulfonamides; Z88.0 Allergy status to penicillin; Z88.5 Allergy status to narcotic agent; Z91.040 Latex allergy status; Z88.8 Allergy status to other drugs, medicaments and biological substances; Z86.73 Personal history of transient ischemic attack (TIA), and cerebral infarction without residual deficits; Z92.21 Personal history of antineoplastic chemotherapy
CPT/HCPCS: 36415; 80053; 83735; 85025

== ENCOUNTER 2020-09-03 15:15 | Observation (INO) | payer MEDICARE, MEDICAID ==
[~2020-09-03] VITALS: Ht 160 cm; Wt 118.3 kg
[2020-09-03] MEDS ORDERED: ONDANSETRON 4 MG/2 ML (SDV) Z0FRAN IVP ONE (15:45)
[2020-09-03] MEDS ORDERED: fentaNYL INJ 100 MCG/2 ML AMP IVP ONE (15:45)
--- NOTE | 2020-09-03 15:45 | ED Chest Pain ---
General Chief Complaint: Chest Pain Stated Complaint: CHEST PAIN Nursing Triage Note: TO ROOM 08 WITH COMPLAINTS OF CHEST PAIN AND TACHYCARDIA Nursing Sepsis Screen: No Definite Risk Source: patient Exam Limitations: no limitations (JOEL VALENTE APRN) History of Present Illness Date Seen by Provider: September 03, 2020 Time Seen by Provider: 15:25 Initial Comments This is a 35-year-old female who presents to the ER with complaints of chest pain, racing heart, and lightning sensation that shoots in the middle of her chest down her back and her left arm. States that she saw her receiving associate Dr. Pringle today in his office and was told her to go to the emergency department if she experiences any more concerning symptoms. States that she recently had her loop recorder removed due to her history of breast cancer and subsequent double mastectomy that occurred in March 2020. Additionally states that she has a h istory of a PFO and has been experiencing these symptoms on and off for an extended length of time. However, the symptoms have been occurring more frequently. States that she wakes in the middle of the night with a cough and racing heart. She has a feeling of impending doom like she is going to . During these episodes she notes that her blood pressure is extremely elevated 170s over low 100's, 150s over 90s. With heart rate in the 130s. She currently has bilateral tissue expanders for upcoming reconstruction. However states that the lightning sensation in her chest and arm occurred prior to implantation of the tissue expanders. States that the pain is becoming more severe, and when it occurs is "debilitating". She also notes that she has a history of a DVT with a right leg fasciotomy that occurred in 2014. Reports intermittent episodes of nausea during events. She is currently denying any shortness of breath, pain with inspiration. Denies vomiting, diarrhea, abdominal pain. Denies any alleviating or aggravating factors. (JOEL VALENTE APRN) Allergies and Home Medications Allergies Coded Allergies: aprepitant (Verified Allergy, Severe, 05/14/20) PATIENT STATES COULD NOT BREATH fosaprepitant (Verified Allergy, Severe, 05/14/20) PATIENT STATES COULD NOT BREATH latex (Verified Allergy, Severe, BLISTERS, 08/24/17) penicillin (Verified Allergy, Severe, ITCHING, 08/24/17) Sulfa (Sulfonamide Antibiotics) (Verified Allergy, Unknown, RASH, 08/24/17) Uncoded Allergies: STAWBERRIES (Allergy, Mild, RASH, 09/04/20) Home Medications Acetaminophen 500 Mg Tablet, 500-1,000 MG PO Q6H PRN for PAIN-MILD (1-4), ( Reported) Last Action: Reviewed Aspirin/Acetaminophen/Caffeine 1 Each Tablet, 2 EACH PO Q6-8HR PRN for Headache, (Reported) Last Action: Reviewed Calcium Carbonate 400 Mg Tab.chew, 400-800 MG PO Q6H PRN for INDIGESTION, (Reported) Last Action: Reviewed Cetirizine HCl 10 Mg Tablet, 10 MG PO DAILY PRN for ALLERGY SYMPTOMS, (Reported) Last Action: Reviewed Cholecalciferol (Vitamin D3) 25 Mcg Tablet, 25 MCG PO DAILY, (Reported) Last Action: Reviewed Cyclosporine 1 Each Droperette, 1 DROP OU BID, (Reported) Last Action: Reviewed Erenumab-Aooe 140 Mg/1 Ml Auto.injct, 140 MG IJ MONTHLY, (Reported) Last Action: Reviewed Lurasidone HCl 80 Mg Tablet, 80 MG PO 1800 W/MEAL, (Reported) Last Action: Reviewed Metoprolol Succinate 50 Mg Tab.er.24h, 50 MG PO DAILY, (Reported) Last Action: Reviewed Metoprolol Succinate 50 Mg Tab.er.24h, 50 MG PO Q12H Prescribed by: KADIE NEVAREZ on 09/04/201838 Mometasone Furoate 45 Gm Cream..g., 1 APPLIC TOP DAILY PRN for RASH, (Reported) APPLIES TO CHEST Last Action: Reviewed Ondansetron HCl 8 Mg Tablet, 8 MG PO Q8H PRN for NAUSEA/VOMITING-1ST LINE, (Reported) Last Action: Reviewed Pantoprazole Sodium 40 Mg Tablet.dr, 40 MG PO BID, (Reported) Last Action: Reviewed Sorbitol Solution 1 Ml Solution, 15-30 ML PO TID PRN for CONSTIPATION, (Reported) Last Action: Reviewed Sucralfate 1 Gm Tablet, 1 GM PO QID PRN for ULCERS, (Reported) Last Action: Reviewed Patient Home Medication List Home Medication List Reviewed: Yes (JOEL VALENTE ACADEMIC DEPARTMENT CHAIR) Review of Systems Review of Systems Constitutional: see HPI EENTM: See HPI Respiratory: See HPI Cardiovascular: See HPI Gastrointestinal: See HPI Genitourinary: No Symptoms Reported Musculoskeletal: see HPI Skin: see HPI Endocrine: Flushing Hematologic/Lymphatic: No Symptoms Reported (JOEL VALENTE APRN) Past Zkuiigj-Vghehc-Ushseu Hx Patient Social History Alcohol Use: Denies Use Number of Drinks Today: II Alcohol Beverage of Choice: Vodka, Other Drug of Choice: CHRONIC OPIATE USE/ABUSE AND OVERDOSES Smoking Status: Former Smoker Type Used: Cigarettes Former Smoker, Quit: Feb 24, 2020 2nd Hand Smoke Exposure: Yes Recent Infectious Disease Expo: No Recent Hopitalizations: No (JOEL VALENTE APRN) Immunizations Up To Date Tetanus Booster (TDap): Less than 5yrs PED Vaccines UTD: Yes Date of Pneumonia Vaccine: Feb 26, 2015 Date of Influenza Vaccine: Dec 19, 2019 (JOEL VALENTE APRN) Seasonal Allergies Seasonal Allergies: No (JOEL VALENTE APRN) Past Medical History Surgeries: Yes (Loop Recorder, R PAC, BILAT MASTECTOMY 04/01/21) Cardiac, Orthopedic, 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, Vascular Surgery Respiratory: No Asthma Currently Using CPAP: No Currently Using BIPAP: No Cardiac: Yes (PFO, SVT) Congenital Heart Disease, Deep Vein Thrombosis, High Cholesterol, Palpitations Neurological: Yes Seizure Disorder, Stroke 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 Disorders: Yes (MENORRHAGIA) Female 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 History: 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 Sexually Transmitted Disease: No HIV/AIDS: No Genitourinary: Yes Kidney Stones, UTI-Chronic Gastrointestinal: Yes Irritable Bowel Musculoskeletal: Yes Degenerate Disk Disease, Foot Drop, Scoliosis, Chronic Back Pain, Fractures Endocrine: No (STATES CHEMO HAS AFFECTED BLOOD SUGAR) Diabetes, Non-Insulin dep HEENT: No Loss of Vision: Bilateral Hearing Impairment: Denies Cancer: Yes Breast Did You Recieve Any Treatments: Yes What Type of Treatment Did You: Chemotherapy Psychosocial: Yes (D.I.D.) Anxiety, PTSD, Bipolar Integumentary: No Herpes Blood Disorders: Yes (HX OF HYPERCOLAGUABLE STATE) Adverse Reaction/Blood Tranf: No (N/A) (JOEL VALENTE APRN) Family Medical History Antiphospholipid syndrome 19 MOTHER Diabetes mellitus 19 FATHER G8 BROTHER FH: aneurysm 19 FATHER FH: lupus 19 MOTHER FHx: congestive heart failure 19 FATHER FHx: renal failure 19 MOTHER Heart murmur 19 MOTHER Lupus anticoagulant disorder 19 MOTHER Patent foramen ovale 19 FATHER Barry syndrome G8 SISTER Physical Exam Vital Signs Vital Signs - First Documented 09/03/20 15:15 Temp 36.0 Pulse 109 Resp 16 B/P (MAP) 139/99 (112) Pulse Ox 100 O2 Delivery Room Air (MARIA ELENA MORA MD) Vital Signs Capillary Refill : Less Than 3 Seconds (JOEL VALENTE APRN) Height, Weight, BMI Height: 5'4.00" Weight: 189lbs. 9.0oz. 85.474761oq; 44.00 BMI Method:Stated General Appearance: No Apparent Distress, Anxious HEENT: PERRL/EOMI, Normal ENT Inspection, Pharynx Normal, Moist Mucous Membranes Neck: Full Range of Motion, Normal Inspection, Non Tender, Supple Respiratory: Lungs Clear, Normal Breath Sounds, No Accessory Muscle Use, No Respiratory Distress Cardiovascular: Regular Rate, Rhythm, No Edema, Normal Peripheral Pulses, Tachycardia Gastrointestinal: Normal Bowel Sounds, Non Tender, Soft Neurologic/Psychiatric: Alert, Oriented x3, No Motor/Sensory Deficits, Normal Mood/Affect Skin: Normal Color, Warm/Dry (JOEL VALENTE APRN) Progress/Results/Core Measures Results/Orders Lab Results Laboratory Tests Test 09/03/20 15:55 Range/Units White Blood Count 7.3 4.3-11.0 10^3/uL Red Blood Count 3.99 3.80-5.11 10^6/uL Hemoglobin 11.2 L 11.5-16.0 g/dL Hematocrit 35 35-52 % Mean Corpuscular Volume 89 80-99 fL Mean Corpuscular Hemoglobin 28 25-34 pg Mean Corpuscular Hemoglobin Concent 32 32-36 g/dL Red Cell Distribution Width 17.1 H 10.0-14.5 % Platelet Count 365 130-400 10^3/uL Mean Platelet Volume 9.4 9.0-12.2 fL Immature Granulocyte % (Auto) 0 % Neutrophils (%) (Auto) 58 42-75 % Lymphocytes (%) (Auto) 36 12-44 % Monocytes (%) (Auto) 6 0-12 % Eosinophils (%) (Auto) 0 0-10 % Basophils (%) (Auto) 0 0-10 % Neutrophils # (Auto) 4.2 1.8-7.8 10^3/uL Lymphocytes # (Auto) 2.6 1.0-4.0 10^3/uL Monocytes # (Auto) 0.4 0.0-1.0 10^3/uL Eosinophils # (Auto) 0.0 0.0-0.3 10^3/uL Basophils # (Auto) 0.0 0.0-0.1 10^3/uL Immature Granulocyte # (Auto) 0.0 0.0-0.1 10^3/uL Prothrombin Time 13.5 12.2-14.7 SEC INR Comment 1.0 0.8-1.4 Activated Partial Thromboplast Time 35 24-35 SEC D-Dimer <= 0.27 0.00-0.49 UG/ML Sodium Level 140 135-145 MMOL/L Potassium Level 4.0 3.6-5.0 MMOL/L Chloride Level 106 98-107 MMOL/L Carbon Dioxide Level 27 21-32 MMOL/L Anion Gap 7 5-14 MMOL/L Blood Urea Nitrogen 7 7-18 MG/DL Creatinine 0.68 0.60-1.30 MG/DL Estimat Glomerular Filtration Rate > 60 BUN/Creatinine Ratio 10 Glucose Level 103 70-105 MG/DL Calcium Level 9.6 8.5-10.1 MG/DL Corrected Calcium 9.5 8.5-10.1 MG/DL Magnesium Level 2.0 1.6-2.4 MG/DL Total Bilirubin 0.3 0.1-1.0 MG/DL Aspartate Amino Transf (AST/SGOT) 16 5-34 U/L Alanine Aminotransferase (ALT/SGPT) 14 0-55 U/L Alkaline Phosphatase 46 40-136 U/L Myoglobin 20.9 10.0-92.0 NG/ML Troponin I < 0.028 <0.028 NG/ML B-Type Natriuretic Peptide 19.9 <100.0 PG/ML Total Protein 7.2 6.4-8.2 GM/DL Albumin 4.1 3.2-4.5 GM/DL (MARIA ELENA MORA MD) Vital Signs/I&O 09/03/20 15:15 Temp 36.0 Pulse 109 Resp 16 B/P (MAP) 139/99 (112) Pulse Ox 100 O2 Delivery Room Air (MARIA ELENA MORA MD) Blood Pressure Mean: 112 Progress Progress Note : Progress Note Patient examined and appears very anxious. Asked "do you think I am going to ". Provided reassurance that we will do a comprehensive work-up and will further evaluate any abnormalities. Orders initiated for cardiac work-up with D-dimer. Will give fentanyl 50 mcg IV push and Zofran 4 mg IV push for pain and nausea. While awaiting labs and chest x-ray patient came to the door very short of breath stating help help. States that the pain in her chest is like lightning fireworks shooting proximal into her shoulder making it feel heavy. She appears extremely anxious at this time. Assisted her back to the bed and reconnected cardiac monitors and vital monitors. Heart rate 120 sinus tach. Orders given for Ativan 1 mg IV push She is able to calm down. States that when she was at her receiving associate office, Dr. Pringle increased her metoprolol 50 mg extended release from daily to twice daily. Heart rate after Ativan 98-110's. Orders placed to give second dose of metoprolol in the ER. Labs reviewed and are unremarkable. Chest x-ray shows no acute findings. D-dimer negative. Discussed findings with her and she states that she does not feel comfortable discharging home. She is afraid she is going to go home to . Her symptoms sound as if she is having intermittent episodes of SVT that caused her to have panic attacks. However, she remained stable sinus tach less than 120's in the ER. Reviewed case with Dr. Nevarez, agreeable with observation admission and cardiology consult in a.m. (JOEL VALENTE APRN) Progress Note : Progress Note I was personally present in the emergency department during the care of this patient but did not directly participate in this patient's care. (MARIA ELENA MORA MD) Initial ECG Impression Date: September 03, 2020 Initial ECG Impression Time: 15:23 Initial ECG Rate: 111 Initial ECG Rhythm: S.Tach Initial ECG Intervals: Normal Initial ECG Impression: Nonspecific Changes Initial ECG Comparisson: Unchanged (JOEL VALENTE APRN) Diagnostic Imaging Diagonstic Imaging: Xray Plain Films/CT/US/NM/MRI: chest Comments [facility] [place] NAME: COLTON ORTIZ [facility] REC#: [id number] PT STATUS: REG ER : 1985 PHYSICIAN: JOEL VALENTE APRN ADMIT DATE: 09/03/20/ER Signed Date of Exam:09/03/20 CHEST 1 VIEW, AP/PA ONLY EXAMINATION: Chest 1 view HISTORY: Chest pain COMPARISON: Chest radiograph from 07/21/2020. FINDINGS: Heart size and pulmonary vasculature are normal. The lungs are clear without consolidation, pleural effusion, or pneumothorax. The osseous structures are intact. Stable right-sided port catheter. IMPRESSION: 1. No acute radiographic abnormality in the chest. Dictated by: Dictated on workstation # [id number] Dict: 09/03/20 1621 Trans: 09/03/20 1704 [id number] [id number] Interpreted by: VERONICA MATTHEWS DO Electronically signed by: VERONICA MATTHEWS DO 09/03/20 1704 Reviewed: Reviewed by Me (JOEL VALENTE APRN) Departure Communication (Admissions) Time/Spoke to Admitting Phy: 17:[address] Nevarez, she accepted patient admission with cardiology consult. (JOEL VALENTE APRN) Impression Primary Impression: Chest pain Additional Impression: Palpitations Disposition: ADMITTED INPATIENT Condition: Stable Admissions Decision to Admit Reason: Admit from ER (General) Decision to Admit/Date: September 03, 2020 Time/Decision to Admit Time: 18:09 (JOEL VALENTE APRN) Departure-Patient Inst. Referrals: [facility] (PCP/Family) Primary Care Physician Scripts Metoprolol Succinate (Metoprolol Succinate) 50 Mg Tab.er.24h 50 MG PO Q12H, #60 TAB 0 Refills Prov: KADIE NEVAREZ MD 09/04/20 Copy Copies To 1: [facility] [place] Copies To 2: BONI PRINGLE MD FACP FACC [facility]S JOEL VALENTE APRN September 03, 2020 15:44 MARIA ELENA MORA MD September 05, 2020 06:18
[2020-09-03 16:05] LABS: BASOPHILS % (AUTO) 0 % (0-10); EOSINOPHILS % (AUTO) 0 % (0-10); HEMATOCRIT 35 % (35-52); HEMOGLOBIN 11.2 g/dL (11.5-16.0); LYMPHOCYTES # (AUTO) 2.6 10^3/uL (1.0-4.0); LYMPHOCYTES % (AUTO) 36 % (12-44); MEAN CORPUSCULAR HEMOGLOBIN 28 pg (25-34); MEAN CORPUSCULAR HGB CONC 32 g/dL (32-36); MEAN CORPUSCULAR VOLUME 89 fL (80-99); MEAN PLATELET VOLUME 9.4 fL (9.0-12.2); MONOCYTES # (AUTO) 0.4 10^3/uL (0.0-1.0); MONOCYTES % (AUTO) 6 % (0-12); NEUTROPHILS # (AUTO) 4.2 10^3/uL (1.8-7.8); NEUTROPHILS % (AUTO) 58 % (42-75); PLATELET COUNT 365 10^3/uL (130-400); WHITE BLOOD COUNT 7.3 10^3/uL (4.3-11.0)
[2020-09-03 16:22] LABS: ALBUMIN 4.1 GM/DL (3.2-4.5); CHLORIDE 106 MMOL/L (98-107); SODIUM 140 MMOL/L (135-145)
[2020-09-03 16:23] LABS: CALCIUM 9.6 MG/DL (8.5-10.1)
--- NOTE | 2020-09-03 16:23 | Diagnostic Imaging Report ---
EXAMINATION: Chest 1 view HISTORY: Chest pain COMPARISON: Chest radiograph from 07/21/2020. FINDINGS: Heart size and pulmonary vasculature are normal. The lungs are clear without consolidation, pleural effusion, or pneumothorax. The osseous structures are intact. Stable right-sided port catheter. IMPRESSION: 1. No acute radiographic abnormality in the chest. Dictated by: Dictated on workstation # [id number]
[2020-09-03 16:24] LABS: GLUCOSE 103 MG/DL (70-105); TOTAL PROTEIN 7.2 GM/DL (6.4-8.2)
[2020-09-03 16:25] LABS: CARBON DIOXIDE 27 MMOL/L (21-32)
[2020-09-03] MEDS ORDERED: LORazepam INJ 2 MG/ML (ATIVAN) VIAL ONE (16:25)
[2020-09-03 16:26] LABS: BILIRUBIN,TOTAL 0.3 MG/DL (0.1-1.0)
[2020-09-03 16:28] LABS: ALKALINE PHOSPHATASE 46 U/L (40-136); CREATININE SERUM 0.68 MG/DL (0.60-1.30); GFR ESTIMATED > 60
[2020-09-03 16:29] LABS: BUN/CREATININE RATIO 10
[2020-09-03 16:31] LABS: ALANINE AMINOTRANSFERASE 14 U/L (0-55)
[2020-09-03] MEDS ORDERED: LORazepam INJ 2 MG/ML (ATIVAN) VIAL IVP ONE (16:45)
[2020-09-03 17:06] LABS: FIBRIN DEGRADATION PRODUCTS <= 0.27 UG/ML (0.00-0.49); PARTIAL THROMBOPLASTIN TIME 35 SEC (24-35); PROTHROMBIN TIME PATIENT 13.5 SEC (12.2-14.7)
[2020-09-03] MEDS ORDERED: meTOproloL SUCCINATE 50 MG (TOPROL XL) TAB PO ONE (17:36)
[2020-09-03] MEDS ORDERED: meTOproloL SUCCINATE 50 MG (TOPROL XL) TAB PO SCH (17:45)
[2020-09-03 19:00] VITALS: BP 123/73
[2020-09-03] MEDS ORDERED: ACETAMINOPHEN 325 MG TABLET PO PRN (19:15)
[2020-09-03] MEDS ORDERED: LORazepam INJ 2 MG/ML (ATIVAN) VIAL IV PRN (19:15)
[2020-09-03] MEDS ORDERED: ONDANSETRON 4 MG/2 ML (SDV) Z0FRAN IV PRN (19:15)
[2020-09-03] MEDS ORDERED: CATHETER FLUSH 10 ML SYR IV PRN (19:15)
[2020-09-03] MEDS: ENOXAPARIN 40 MG/0.4 ML (LOVENOX) SYR SC SCH (20:55)
[2020-09-03] MEDS: CATHETER FLUSH 10 ML SYR IV SCH (21:01)
[2020-09-03 21:44] VITALS: BP 139/99
[2020-09-03] MEDS ORDERED: RT-ALBUTEROL/IPRATROPIUM 3 ML (DUONEB) VIAL INH PRN (22:00)
[2020-09-04] VITALS (7 sets, daily range): BP systolic 93–122; BP diastolic 55–79
[2020-09-04 05:16] LABS: BASOPHILS % (AUTO) 1 % (0-10); EOSINOPHILS % (AUTO) 0 % (0-10); HEMATOCRIT 33 % (35-52); HEMOGLOBIN 10.2 g/dL (11.5-16.0); LYMPHOCYTES # (AUTO) 3.9 10^3/uL (1.0-4.0); LYMPHOCYTES % (AUTO) 52 % (12-44); MEAN CORPUSCULAR HEMOGLOBIN 28 pg (25-34); MEAN CORPUSCULAR HGB CONC 31 g/dL (32-36); MEAN CORPUSCULAR VOLUME 90 fL (80-99); MEAN PLATELET VOLUME 9.2 fL (9.0-12.2); MONOCYTES # (AUTO) 0.4 10^3/uL (0.0-1.0); MONOCYTES % (AUTO) 5 % (0-12); NEUTROPHILS # (AUTO) 3.1 10^3/uL (1.8-7.8); NEUTROPHILS % (AUTO) 42 % (42-75); PLATELET COUNT 330 10^3/uL (130-400); WHITE BLOOD COUNT 7.5 10^3/uL (4.3-11.0)
[2020-09-04 05:27] LABS: CHLORIDE 106 MMOL/L (98-107); POTASSIUM 3.9 MMOL/L (3.6-5.0); SODIUM 139 MMOL/L (135-145)
[2020-09-04 05:28] LABS: CALCIUM 8.9 MG/DL (8.5-10.1)
[2020-09-04 05:29] LABS: GLUCOSE 94 MG/DL (70-105)
[2020-09-04 05:30] LABS: CARBON DIOXIDE 23 MMOL/L (21-32)
[2020-09-04 05:32] LABS: CREATININE SERUM 0.69 MG/DL (0.60-1.30); GFR ESTIMATED > 60
[2020-09-04 05:33] LABS: BUN/CREATININE RATIO 9
[2020-09-04] MEDS: meTOproloL SUCCINATE 50 MG (TOPROL XL) TAB PO SCH ×2 (06:02→17:50)
[2020-09-04] MEDS: CATHETER FLUSH 10 ML SYR IV SCH ×2 (06:02→13:03)
--- NOTE | 2020-09-04 08:02 | Consultation-Cardiology ---
HPI-Cardiology Cardiology Consultation: Date of Consultation 09/04/20 Time Seen by a Provider: 08:40 Date of Admission 09-03-20 Attending Physician Kadie Nevarez MD Admitting Physician [facility] Consulting Physician Morelia Pringle MD HPI: Chief Complaint: Palpitations Chest pain Ms. Brunner is a 35 yr old female admitted to [facility] from the ED with c/o chest pain and palpitations. She describes the chest pain as a sharp shooting pain across her chest to left shoulder and arm lasting for a few minutes. She has had several episodes over the last several days. She also reports episodes of palpitations for which she feels unwell, weak, SOB, dizzy. No c/o LE swelling. She was seen in our clinic yesterday at that time we increased her Toprol to 50mg BID and made a referral to Dr. Aguirre. She reports she was feeling unwell yesterday afternoon and decided to be evaluated in the ED. No c/o n/v/d. Review of Systems-Cardiology Review of Systems Constitutional: No chills, No fever; malaise Eyes: No vision change Ears/Nose/Throat: No epistaxis, No recent hearing loss Respiratory: As described under HPI Cardiovascular: As described under HPI Gastrointestinal: No constipation, No diarrhea, No vomiting Genitourinary: No dysuria, No hematuria Musculoskeletal: no symptoms reported Skin: No rash on exposed areas, No ulcerations on exposed areas Psychiatric/Neurological: anxiety; No depression, No seizure, No focal weakness, No syncope Hematologic: No bleeding abnormalities GVZ-[id number]-Kvxqoj Hx Patient Social History Smoking Status: Former Smoker 2nd Hand Smoke Exposure: Yes Have you traveled recently?: No Alcohol Use?: No Pt feels they are or have been: No Tobacco type used: Cigarettes Immunizations Up To Date Tetanus Booster (TDap): Less than 5yrs Date of Pneumonia Vaccine: Feb 26, 2015 Date of Influenza Vaccine: Dec 19, 2019 Past Medical History PMH As described under Assessment. Family Medical History Family Medical History: She reports her father had CAD, aneurysm and CHF. Family History: 19 FATHER Diabetes mellitus FHx: congestive heart failure Patent foramen ovale FH: aneurysm 19 MOTHER FH: lupus FHx: renal failure Heart murmur Lupus anticoagulant disorder Antiphospholipid syndrome G8 BROTHER Diabetes mellitus G8 SISTER Barry syndrome Allergies and Home Medications Allergies Coded Allergies: aprepitant (Verified Allergy, Severe, 05/14/20) PATIENT STATES COULD NOT BREATH fosaprepitant (Verified Allergy, Severe, 05/14/20) PATIENT STATES COULD NOT BREATH latex (Verified Allergy, Severe, BLISTERS, 08/24/17) penicillin (Verified Allergy, Severe, ITCHING, 08/24/17) Sulfa (Sulfonamide Antibiotics) (Verified Allergy, Unknown, RASH, 08/24/17) Uncoded Allergies: STAWBERRIES (Allergy, Mild, RASH, 09/04/20) Home Medications Acetaminophen 500 Mg Tablet, 500-1,000 MG PO Q6H PRN for PAIN-MILD (1-4), (Reported) Last Action: Reviewed Aspirin/Acetaminophen/Caffeine 1 Each Tablet, 2 EACH PO Q6-8HR PRN for Headache, (Reported) Last Action: Reviewed Calcium Carbonate 400 Mg Tab.chew, 400-800 MG PO Q6H PRN for INDIGESTION, (Reported) Last Action: Reviewed Cetirizine HCl 10 Mg Tablet, 10 MG PO DAILY PRN for ALLERGY SYMPTOMS, (Reported) Last Action: Reviewed Cholecalciferol (Vitamin D3) 25 Mcg Tablet, 25 MCG PO DAILY, (Reported) Last Action: Reviewed Cyclosporine 1 Each Droperette, 1 DROP OU BID, (Reported) Last Action: Reviewed Erenumab-Aooe 140 Mg/1 Ml Auto.injct, 140 MG IJ MONTHLY, (Reported) Last Action: Reviewed Lurasidone HCl 80 Mg Tablet, 80 MG PO 1800 W/MEAL, (Reported) Last Action: Reviewed Metoprolol Succinate 50 Mg Tab.er.24h, 50 MG PO DAILY, (Reported) Last Action: Reviewed Metoprolol Succinate 50 Mg Tab.er.24h, 50 MG PO Q12H Prescribed by: KADIE NEVAREZ on 09/04/20 183 Mometasone Furoate 45 Gm Cream..g., 1 APPLIC TOP DAILY PRN for RASH, (Reported) APPLIES TO CHEST Last Action: Reviewed Ondansetron HCl 8 Mg Tablet, 8 MG PO Q8H PRN for NAUSEA/VOMITING-1ST LINE, (Reported) Last Action: Reviewed Pantoprazole Sodium 40 Mg Tablet.dr, 40 MG PO BID, (Reported) Last Action: Reviewed Sorbitol Solution 1 Ml Solution, 15-30 ML PO TID PRN for CONSTIPATION, (Reported) Last Action: Reviewed Sucralfate 1 Gm Tablet, 1 GM PO QID PRN for ULCERS, (Reported) Last Action: Reviewed Physical Exam-Cardiology Physical Exam Vital Signs/I&O 09/05/20 00:00 Intake Total 360 ml Balance 360 ml Capillary Refill : Less Than 3 Seconds Constitutional: AAO x 3, well-developed, well-nourished HEENT: PERRL, hearing is well preserved, oral hygience is good Neck: No carotid bruit; carotid pulses are 2 + bilaterally Respiratory: No accessory muscle use, No respiratory distress; chest expansion is symmetric, chest is bilaterally symmetric, lungs clear to auscultation Cardiovascular: regular rate-rhythm; No JVD; S1 and S2 Gastrointestinal: No tender; soft, round Extremities: no lower extremity edema bilateral Neurologic/Psychiatric: grossly intact (moves all extremities) Skin: No rash on exposed areas, No ulcerations on exposed areas Data Review Labs Laboratory Tests 09/04/20 11:20: Serum Test, Qualitative NEGATIVE Radiology NAME: COLTON BRUNNER [facility] REC#: [id number] PT STATUS: REG ER : 1985 PHYSICIAN: JOEL VALENTE CHIEF ENTERPRISE ARCHITECT ADMIT DATE: 09/03/20/ER Signed Date of Exam:09/03/20 CHEST 1 VIEW, AP/PA ONLY EXAMINATION: Chest 1 view HISTORY: Chest pain COMPARISON: Chest radiograph from 07/21/2020. FINDINGS: Heart size and pulmonary vasculature are normal. The lungs are clear without consolidation, pleural effusion, or pneumothorax. The osseous structures are intact. Stable right-sided port catheter. IMPRESSION: 1. No acute radiographic abnormality in the chest. Dictated by: Dictated on workstation # [id number] Dict: 09/03/20 1621 Trans: 09/03/20 1704 [id number] Interpreted by: VERONICA MATTHEWS DO Electronically signed by: VERONICA MATTHEWS DO 09/03/20 1704 ECG Impression ECG Initial ECG Rhythm: S.Tach A/P-Cardiology Assessment/Admission Diagnosis Chest pain of undetermined etiology - no evidence of ACS thus far Palpitations - Previous ILR had indicted NSR, intermittent ST and occ PVC (prior to explant in 2019) - SVT (prob AVNRT) seen at time of ED visit on 07-20-2020 - reported intolerance to Cardizem CD - reports rash/itching - referred to Dr. Aguirre on 09-03-2020 d/t worsening of symptoms - BB increased to BID MPI of 03/20/19 showed no ischemia or infarction and LVEF was 55% Reported syncopal episode of undetermined etiology - H/O ILR implanted on 08/23/17: no significant arrhythmia seen (explanted d/t need for masectomy d/t breast cancer in 2019) CT of the abdomen/pelvis on July 31, 2017 showed IVC filter in place H/O IVC filter place in 2014 at [facility] in [place], [place] - details unknown Abdominal pain of undetermined etiology - management by er PCP ASD - with [id number] shunt, LVEF 60%, PASP 15 mmHg and mild MR & TR, based on transthoracic echo by Dr Mckeon on 12/24/14. - GUTIERREZ of 08/23/17 did not show any significant intra-card shunt; LVEF 60%. - Echo of 03/21/19: LVEF 60-65%, RVSP 24 mmHg - Echo of 07-21-[address] Valentine: LVEF 65-70%. PASP 20-25 mmHg H/o CVA consisting of R-sided weakness in June 2013 in [place], [place], with good subsequent recovery. Also reports a history of TIA in 2011. Has not had any recurrent events after being place on aspirin in 2013, according to her H/o glucose intolerance Obesity with BMI 47 States she has been told she may have a hypercoagulable state, but treatment has only been advised with aspirin Chronic hardness of hearing Chronic tobacco use Menorrhagia with OAC Fam h/o AAA (father of AAA at age 67) H/O ETOH abuse (quit a yr ago per pt) Breast cancer with recent bilat mastectomy, tissue expanders in place - received chemo tx ( completed July 2020 per pt report) Discussion and Recomendations Chest pain of undetermined etiology - no evidence of ACS - advise MPI this morning Palpitations of undetermined etiology - no arrhythmia seen on tele thus far Continue current medication regimen Monitor lab closely Replace electrolytes as indicated Further recs will be based on her hospital course We would like to thank medical services for this consult Clinical Quality Measures AMI/AHF: ASA po Prior to arrival: RIDGE Crocker September 04, 2020 08:02
[2020-09-04] MEDS: ENOXAPARIN 40 MG/0.4 ML (LOVENOX) SYR SC SCH (08:35)
[2020-09-04] MEDS ORDERED: REGADENOSON 0.4 MG/5 ML SYR (LEXISCAN) IV ONE ×2 (08:45→12:33)
--- NOTE | 2020-09-04 10:32 | Consultation-Cardiology ---
HPI-Cardiology Cardiology Consultation: Date of Consultation 09/04/20 Time Seen by a Provider: 09:20 Date of Admission Attending Physician Gail Larson MD Admitting Physician [place] Consulting Physician BONI VALDIVIA MD, MA, FACP, FACC, FSCAI, CCDS HPI: Chief Complaint: CC: Palpitations, Chest pain HPI Ms. Brunner is a 35 yr old female admitted to [facility] from the ED with c/o chest pain and palpitations. She describes the chest pain as a sharp shooting pain across her chest to left shoulder and arm lasting for a few minutes. She has had several episodes over the last several days. She also reports episodes of palpitations for which she feels unwell, weak, SOB, dizzy. No c/o LE swelling. She was seen in our clinic yesterday at that time we increased her Toprol to 50mg BID and made a referral to Dr. Aguirre. She reports she was feeling unwell yesterday afternoon and decided to be evaluated in the ED. No c/o n/v/d. Review of Systems-Cardiology Review of Systems Constitutional: No chills, No fever; malaise Eyes: No vision change Ears/Nose/Throat: No epistaxis, No recent hearing loss Respiratory: As described under HPI Cardiovascular: As described under HPI Gastrointestinal: No constipation, No diarrhea, No vomiting Genitourinary: No dysuria, No hematuria Musculoskeletal: no symptoms reported Skin: No rash on exposed areas, No ulcerations on exposed areas Psychiatric/Neurological: anxiety; No depression, No seizure, No focal weakness, No syncope Hematologic: No bleeding abnormalities PZW-[id number]-Lxbmwg Hx Patient Social History Smoking Status: Former Smoker 2nd Hand Smoke Exposure: Yes Have you traveled recently?: No Alcohol Use?: No Pt feels they are or have been: No Tobacco type used: Cigarettes Immunizations Up To Date Tetanus Booster (TDap): Less than 5yrs Date of Pneumonia Vaccine: Feb 26, 2015 Date of Influenza Vaccine: Dec 19, 2019 Past Medical History PMH As described under Assessment. Family Medical History Family Medical History: She reports her father had CAD, aneurysm and CHF. Family History: Antiphospholipid syndrome 19 MOTHER Diabetes mellitus 19 FATHER G8 BROTHER FH: aneurysm 19 FATHER FH: lupus 19 MOTHER FHx: congestive heart failure 19 FATHER FHx: renal failure 19 MOTHER Heart murmur 19 MOTHER Lupus anticoagulant disorder 19 MOTHER Patent foramen ovale 19 FATHER Barry syndrome G8 SISTER Allergies and Home Medications Allergies Coded Allergies: aprepitant (Verified Allergy, Severe, 05/14/20) PATIENT STATES COULD NOT BREATH fosaprepitant (Verified Allergy, Severe, 05/14/20) PATIENT STATES COULD NOT BREATH latex (Verified Allergy, Severe, BLISTERS, 08/24/17) penicillin (Verified Allergy, Severe, ITCHING, 08/24/17) Sulfa (Sulfonamide Antibiotics) (Verified Allergy, Unknown, RASH, 08/24/17) Uncoded Allergies: STAWBERRIES (Allergy, Mild, RASH, 09/04/20) Home Medications Acetaminophen 500 Mg Tablet, 500-1,000 MG PO Q6H PRN for PAIN-MILD (1-4), (Reported) Acyclovir 800 Mg Tablet, 800 MG PO BID PRN for CHEMOTHERAPY SORES, (Reported) Aspirin/Acetaminophen/Caffeine 1 Each Tablet, 2 EACH PO Q6-8HR PRN for Headache, (Reported) Calcium Carbonate 400 Mg Tab.chew, 400-800 MG PO Q6H PRN for INDIGESTION, (Reported) Cetirizine HCl 10 Mg Tablet, 10 MG PO DAILY PRN for ALLERGY SYMPTOMS, (Reported) Cyclosporine 1 Each Droperette, 1 EACH OU BID, (Reported) Dexamethasone 4 Mg Tablet, 8 MG PO BID PRN for CHEMO TREATMENTS, (Reported) TAKES 2 (4MG) TABS TWICE DAILY THE DAY BEFORE, DAY OF AND DAY AFTER CHEMO Erenumab-Aooe 140 Mg/1 Ml Auto.injct, 140 MG IJ MONTHLY, (Reported) Furosemide 20 Mg Tablet, 20 MG PO Q48H PRN for FLUID RETENTION, (Reported) Metoprolol Succinate 50 Mg Tab.er.24h, 50 MG PO DAILY Prescribed by: ANA RAMSAY on 07/21/20 1528 Metronidazole 500 Mg Tablet, 500 MG PO BID Prescribed by: ANA RAMSAY on 07/21/20 1527 Ondansetron HCl 8 Mg Tablet, 8 MG PO Q8H PRN for NAUSEA/VOMITING-1ST LINE, (Reported) Oxycodone HCl/Acetaminophen 1 Each Tablet, 1 EA PO Q6H PRN for PAIN-MODERATE (5- 7), (Reported) Pantoprazole Sodium 40 Mg Tablet.dr, 40 MG PO BID, (Reported) Sorbitol Solution 1 Ml Solution, 15-30 ML PO TID PRN for CONSTIPATION, (Reported) Sucralfate 1 Gm Tablet, 1 GM PO QID PRN for ULCERS, (Reported) Patient Home Medication List Home Medication List Reviewed: Yes Physical Exam-Cardiology Physical Exam Vital Signs/I&O 09/04/20 09/04/20 09/04/20 09/04/20 00:00 01:00 03:58 07:00 Temp 36.0 36.2 Pulse 76 70 76 76 Resp 18 17 B/P (MAP) 108/60 (76) 93/55 (68) Pulse Ox 97 96 O2 Delivery Room Air Room Air 09/04/20 09/04/20 08:00 09:00 Temp 35.7 Pulse 74 Resp 20 B/P (MAP) 109/79 (89) Pulse Ox 99 O2 Delivery Room Air Room Air 09/04/20 00:00 Intake Total 460 ml Balance 460 ml Capillary Refill : Less Than 3 Seconds Constitutional: AAO x 3, well-developed, well-nourished HEENT: PERRL, hearing is well preserved, oral hygience is good Neck: No carotid bruit; carotid pulses are 2 + bilaterally Respiratory: No accessory muscle use, No respiratory distress; chest expansion is symmetric, chest is bilaterally symmetric, lungs clear to auscultation Cardiovascular: regular rate-rhythm; No JVD; S1 and S2 Gastrointestinal: No tender; soft, round Extremities: no lower extremity edema bilateral Neurologic/Psychiatric: grossly intact (moves all extremities) Skin: No rash on exposed areas, No ulcerations on exposed areas Data Review Labs Laboratory Tests 09/03/20 15:55: White Blood Count 7.3, Red Blood Count 3.99, Hemoglobin 11.2L, Hematocrit 35, Mean Corpuscular Volume 89, Mean Corpuscular Hemoglobin 28, Mean Corpuscular Hemoglobin Concent 32, Red Cell Distribution Width 17.1H, Platelet Count 365, Mean Platelet Volume 9.4, Immature Granulocyte % (Auto) 0, Neutrophils (%) (Auto) 58, Lymphocytes (%) (Auto) 36, Monocytes (%) (Auto) 6, Eosinophils (%) (Auto) 0, Basophils (%) (Auto) 0, Neutrophils # (Auto) 4.2, Lymphocytes # (Auto) 2.6, Monocytes # (Auto) 0.4, Eosinophils # (Auto) 0.0, Basophils # (Auto) 0.0, Immature Granulocyte # (Auto) 0.0, Prothrombin Time 13.5, INR Comment 1.0, A ctivated Partial Thromboplast Time 35, D-Dimer <= 0.27, Sodium Level 140, Potassium Level 4.0, Chloride Level 106, Carbon Dioxide Level 27, Anion Gap 7, Blood Urea Nitrogen 7, Creatinine 0.68, Estimat Glomerular Filtration Rate > 60, BUN/Creatinine Ratio 10, Glucose Level 103, Calcium Level 9.6, Corrected Calcium 9.5, Magnesium Level 2.0, Total Bilirubin 0.3, Aspartate Amino Transf (AST/SGOT) 16, Alanine Aminotransferase (ALT/SGPT) 14, Alkaline Phosphatase 46, Myoglobin 20.9, Troponin I < 0.028, B-Type Natriuretic Peptide 19.9, Total Protein 7.2, Albumin 4.1 09/03/20 23:40: Troponin I < 0.028 09/04/20 05:05: White Blood Count 7.5, Red Blood Count 3.66L, Hemoglobin 10.2L, Hematocrit 33L, Mean Corpuscular Volume 90, Mean Corpuscular Hemoglobin 28, Mean Corpuscular Hemoglobin Concent 31L, Red Cell Distribution Width 17.0H, Platelet Count 330, Mean Platelet Volume 9.2, Immature Granulocyte % (Auto) 0, Neutrophils (%) (Auto) 42, Lymphocytes (%) (Auto) 52H, Monocytes (%) (Auto) 5, Eosinophils (%) (Auto) 0, Basophils (%) (Auto) 1, Neutrophils # (Auto) 3.1, Lymphocytes # (Auto) 3.9, Monocytes # (Auto) 0.4, Eosinophils # (Auto) 0.0, Basophils # (Auto) 0.0, Immature Granulocyte # (Auto) 0.0, Sodium Level 139, Potassium Level 3.9, C hloride Level 106, Carbon Dioxide Level 23, Anion Gap 10, Blood Urea Nitrogen 6L , Creatinine 0.69, Estimat Glomerular Filtration Rate > 60, BUN/Creatinine Ratio 9, Glucose Level 94, Calcium Level 8.9, Troponin I < 0.028 A/P-Cardiology Assessment/Admission Diagnosis Chest pain of undetermined etiology - no evidence of ACS thus far Palpitations - Previous ILR had indicAted NSR, intermittent ST and occ PVC (prior to explant in 2019) - SVT (prob AVNRT) seen at time of ED visit on 07-20-2020 - reported intolerance to Cardizem CD - reports rash/itching - referred to Dr. Aguirre on 09-03-2020 for eval for SVT ablation - BB increased to BID MPI of 03/20/19 showed no ischemia or infarction and LVEF was 55% Reported syncopal episode of undetermined etiology - H/O ILR implanted on 08/23/17: no significant arrhythmia seen (explanted d/t need for masectomy d/t breast cancer in 2019) CT of the abdomen/pelvis on July 31, 2017 showed IVC filter in place H/O IVC filter place in 2014 at [facility] in [place], [place] - details unknown Abdominal pain of undetermined etiology - management by er PCP One report of ASD, no confirmed subsequently - TTE of 12/24/14 (Dr Mckeon): ASD with rqga-lp-humbf shunt, LVEF 60%, PASP 15 mmHg and mild MR & TR - GUTIERREZ of 08/23/17 did not show any significant intra-card shunt; LVEF 60%. - Echo of 03/21/19: LVEF 60-65%, RVSP 24 mmHg - Echo of 07-21-[address] Valentine: LVEF 65-70%. PASP 20-25 mmHg H/o CVA consisting of R-sided weakness in June 2013 in [place], [place], with good subsequent recovery. Also reports a history of TIA in 2011. Has not had any recurrent events after being place on aspirin in 2013, according to her H/o glucose intolerance Obesity with BMI 46 States she has been told she may have a hypercoagulable state, but treatment has only been advised with aspirin Chronic hardness of hearing Chronic tobacco use Menorrhagia with OAC Fam h/o AAA (father of AAA at age 67) H/O ETOH abuse (quit 2018, per pt) Breast cancer with recent bilat mastectomy, tissue expanders in place - received chemo tx ( completed July 2020 per pt report) Discussion and Recomendations Chest pain of undetermined etiology - no evidence of ACS - advise MPI this morning Palpitations of undetermined etiology - no arrhythmia seen on tele thus far. Already referred for ablation for SVT documented in July 2020 Continue current medication regimen Monitor lab closely Replace electrolytes as indicated Further recs will be based on her hospital course We would like to thank Medical services for this consult Clinical Quality Measures AMI/AHF: ASA po Prior to arrival: BONI Ybarra MD FACP FAC CCDS September 04, 2020 10:32
[2020-09-04] MEDS ORDERED: METO50TA7 PO ×2 (10:47→18:39)
[2020-09-04] MEDS ORDERED: LURA80TA3 PO (10:47)
[2020-09-04] MEDS ORDERED: CHOL-34 PO (10:47)
[2020-09-04] MEDS ORDERED: MOME45CR3 TOP (10:47)
[2020-09-04] MEDS ORDERED: diphenhydrAMINE 25 MG TAB (BENADRYL) PO PRN (15:45)
--- NOTE | 2020-09-04 18:40 | Short Stay Summary ---
Discharge Summary Hospital Course Final Diagnosis: Chest pain, Tachycardia Hospital Course Date of Admission: September 03, 2020 at 18:20 Admission Diagnosis : Chest pain Tachycardia Hypertension Breast cancer [facility] Date of Discharge: 09/04/20 Discharge Diagnosis: Chest pain Tachycardia Hypertension Breast cancer Hospital Course: Pt admitted same day after seeing Cardiology in follow up for her SVT, she had been changed from diltiazem to metoprolol for side effects and referred to EP for SVT ablation consideration. She came to ER due to chest pain and her troponins were negative, BNP was normal and stress test was unremarkable. Cardiology saw her and increased her metoprolol to BID and she was discharged. Labs and Pending Lab Test: Laboratory Tests 09/03/20 23:40: Troponin I < 0.028 09/04/20 05:05: Troponin I < 0.028, White Blood Count 7.5, Red Blood Count 3.66L, Hemoglobin 10.2L, Hematocrit 33L, Mean Corpuscular Volume 90, Mean Corpuscular Hemoglobin 28, Mean Corpuscular Hemoglobin Concent 31L, Red Cell Distribution Width 17.0H, Platelet Count 330, Mean Platelet Volume 9.2, Immature Granulocyte % (Auto) 0, Neutrophils (%) (Auto) 42, Lymphocytes (%) (Auto) 52H, Monocytes (%) (Auto) 5, Eosinophils (%) (Auto) 0, Basophils (%) (Auto) 1, Neutrophils # (Auto) 3.1, Lymphocytes # (Auto) 3.9, Monocytes # (Auto) 0.4, Eosinophils # (Auto) 0.0, Basophils # (Auto) 0.0, Immature Granulocyte # (Auto) 0.0, Sodium Level 139, Potassium Level 3.9, Chloride Level 106, Carbon Dioxide Level 23, Anion Gap 10, Blood Urea Nitrogen 6L, Creatinine 0.69, Estimat Glomerular Filtration Rate > 60, BUN/Creatinine Ratio 9, Glucose Level 94, Calcium Level 8.9 09/04/20 11:20: Serum Test, Qualitative NEGATIVE Home Meds Active Metoprolol Succinate 50 Mg Tab.er.24h 50 Mg PO Q12H Reported Vitamin D3 (Cholecalciferol (Vitamin D3)) 25 Mcg Tablet 25 Mcg PO DAILY Metoprolol Succinate 50 Mg Tab.er.24h 50 Mg PO DAILY Mometasone Furoate 45 Gm Cream..g. 1 Applic TOP DAILY PRN APPLIES TO CHEST Latuda (Lurasidone HCl) 80 Mg Tablet 80 Mg PO 1800 W/MEAL Sorbitol (Sorbitol Solution) 1 Ml Solution 15-30 Ml PO TID PRN Zyrtec (Cetirizine HCl) 10 Mg Tablet 10 Mg PO DAILY PRN Excedrin Migraine Caplet (Aspirin/Acetaminophen/Caffeine) 1 Each Tablet 2 Each PO Q6-8HR PRN Tylenol Extra Strength (Acetaminophen) 500 Mg Tablet 500-1,000 Mg PO Q6H PRN Tums Ultra (Calcium Carbonate) 400 Mg Tab.chew 400-800 Mg PO Q6H PRN Sucralfate 1 Gm Tablet 1 Gm PO QID PRN Restasis (Cyclosporine) 1 Each Droperette 1 Drop OU BID Ondansetron HCl 8 Mg Tablet 8 Mg PO Q8H PRN Aimovig Autoinjector (Erenumab-Aooe) 140 Mg/1 Ml Auto.injct 140 Mg IJ MONTHLY Pantoprazole Sodium 40 Mg Tablet.dr 40 Mg PO BID Assessment/Pt Instructions Follow up with Dr. Pringle in 2-3 weeks. Discharge Instructions Discharge Diet: Cardiac Diet Activity as Tolerated: Yes Discharge Physical Examination Allergies: Coded Allergies: aprepitant (Verified Allergy, Severe, 05/14/20) PATIENT STATES COULD NOT BREATH fosaprepitant (Verified Allergy, Severe, 05/14/20) PATIENT STATES COULD NOT BREATH latex (Verified Allergy, Severe, BLISTERS, 08/24/17) penicillin (Verified Allergy, Severe, ITCHING, 08/24/17) Sulfa (Sulfonamide Antibiotics) (Verified Allergy, Unknown, RASH, 08/24/17) Uncoded Allergies: STAWBERRIES (Allergy, Mild, RASH, 09/04/20) Discharge Summary Date of Admission Date of Discharge Clinical Quality Measures AMI/AHF: ASA po Prior to arrival: KADIE Whittington MD September 04, 2020 18:40
--- NOTE | 2020-09-04 18:49 | STRESS TEST ---
DATE OF SERVICE: RESTING AND POST REGADENOSON TECHNETIUM-99M TETROFOSMIN SPECT CT IMAGING ORDERING PHYSICIAN: Nancy Morales APRN PRIMARY PHYSICIAN: Dr. Larson. OTHER PHYSICIAN: Dr. Valdivia. CLINICAL DIAGNOSES: Chest discomfort, palpitations. Baseline images were carried out after injection of 10.16 mCi of technetium-99m Tetrofosmin. This was followed by 0.4 mg regadenoson and 32.9 mCi of technetium-99m Tetrofosmin. Stress imaging was performed. The patient noted some discomfort in the left shoulder and abdominal cramping and nausea following regadenoson infusion, which resolved in a few minutes. The electrocardiogram did not change with the regadenoson infusion. Review of images at rest and following stress does not indicate any significant perfusion defects consistent with myocardial ischemia or infarction. Gated images show normal global left ventricular systolic function with normal regional wall motion. Left ventricular ejection fraction is calculated to be 69%. Left ventricular end diastolic volume is 61 mL. TID is absent (1.09). CONCLUSIONS: 1. No evidence of any significant myocardial ischemia or infarction on this study. 2. Normal regional wall motion. 3. Normal global left ventricular systolic function with a calculated ejection fraction of 69%. Job ID: [id number] DocumentID: [id number] Dictated Date: 09/04/2020 17:19:03 Tobacco Conditioner Date: 09/04/2020 18:48:54 Dictated By: BONI VALDIVIA MD, MA, FACP, FACC,
== END 2020-09-04 19:00 | disposition home or self-care (01) ==
LOC: EDUNIT# 15:15 → ER 15:21 → 4TH 18:20
PROVIDERS: ADMIT Family Medicine; ATTEND Family Medicine
DX: R07.9 Chest pain, unspecified (principal); R00.0 Tachycardia, unspecified; I10 Essential (primary) hypertension; C50.919 Malignant neoplasm of unspecified site of unspecified female breast; E78.00 Pure hypercholesterolemia, unspecified; G89.29 Other chronic pain; M54.9 Dorsalgia, unspecified; F41.9 Anxiety disorder, unspecified; F43.10 Post-traumatic stress disorder, unspecified; Z79.82 Long term (current) use of aspirin; Z79.899 Other long term (current) drug therapy; Z87.891 Personal history of nicotine dependence
CPT/HCPCS: 36415; 71045; 78452; 80048; 80053; 83735; 83874; 83880; 84484; 84703; 85025; 85379; 85610; 85730; 93005; 93017; 93041; 96374; 96375

== ENCOUNTER 2020-10-28 12:37 | Outpatient (RCR) | payer MEDICARE, MEDICAID ==
[2020-09-17 10:21] LABS: BASOPHILS % (AUTO) 0 % (0-10); EOSINOPHILS % (AUTO) 0 % (0-10); HEMATOCRIT 35 % (35-52); LYMPHOCYTES # (AUTO) 2.5 10^3/uL (1.0-4.0); LYMPHOCYTES % (AUTO) 40 % (12-44); MEAN CORPUSCULAR HEMOGLOBIN 29 pg (25-34); MEAN CORPUSCULAR HGB CONC 32 g/dL (32-36); MEAN CORPUSCULAR VOLUME 90 fL (80-99); MEAN PLATELET VOLUME 9.5 fL (9.0-12.2); MONOCYTES # (AUTO) 0.4 10^3/uL (0.0-1.0); MONOCYTES % (AUTO) 6 % (0-12); NEUTROPHILS # (AUTO) 3.4 10^3/uL (1.8-7.8); NEUTROPHILS % (AUTO) 54 % (42-75); PLATELET COUNT 353 10^3/uL (130-400); WHITE BLOOD COUNT 6.2 10^3/uL (4.3-11.0)
[2020-09-17 10:40] LABS: ALANINE AMINOTRANSFERASE 14 U/L (0-55); ALBUMIN 3.8 GM/DL (3.2-4.5); ALKALINE PHOSPHATASE 41 U/L (40-136); BILIRUBIN,TOTAL 0.4 MG/DL (0.1-1.0); BUN/CREATININE RATIO 15; CALCIUM 9.6 MG/DL (8.5-10.1); CARBON DIOXIDE 25 MMOL/L (21-32); CHLORIDE 104 MMOL/L (98-107); CREATININE SERUM 0.74 MG/DL (0.60-1.30); GFR ESTIMATED > 60; GLUCOSE 113 MG/DL (70-105); POTASSIUM 3.9 MMOL/L (3.6-5.0); SODIUM 135 MMOL/L (135-145); TOTAL PROTEIN 6.7 GM/DL (6.4-8.2)
[~2020-10-28 12:37] MED LIST changes: +CHOL-34 PO; +FAMOTIDINE 20MG/2ML IV (CANCER CTR) IV SCH; +LORazepam INJ 2 MG/ML VIAL CANCER CTR IV SCH; +MOME45CR3 TOP; +NS IV 1000 ML (CANCER CTR) IV SCH; +PEGFILGRASTIM-BMEZ 6 MG/0.6 ML ZIEXTENZO SQ SCH; +diphenhydrAMINE 50 MG/ML INJ (CANCER CENTER) IV PRN
[2020-10-28 13:24] LABS: BASOPHILS % (AUTO) 1 % (0-10); EOSINOPHILS % (AUTO) 0 % (0-10); HEMATOCRIT 37 % (35-52); HEMOGLOBIN 11.5 g/dL (11.5-16.0); LYMPHOCYTES # (AUTO) 3.6 10^3/uL (1.0-4.0); LYMPHOCYTES % (AUTO) 44 % (12-44); MEAN CORPUSCULAR HEMOGLOBIN 26 pg (25-34); MEAN CORPUSCULAR HGB CONC 31 g/dL (32-36); MEAN CORPUSCULAR VOLUME 86 fL (80-99); MEAN PLATELET VOLUME 9.7 fL (9.0-12.2); MONOCYTES # (AUTO) 0.6 10^3/uL (0.0-1.0); MONOCYTES % (AUTO) 7 % (0-12); NEUTROPHILS % (AUTO) 49 % (42-75); PLATELET COUNT 387 10^3/uL (130-400); WHITE BLOOD COUNT 8.3 10^3/uL (4.3-11.0)
[2020-10-28 13:44] LABS: ALANINE AMINOTRANSFERASE 14 U/L (0-55); ALBUMIN 3.9 GM/DL (3.2-4.5); ALKALINE PHOSPHATASE 42 U/L (40-136); BILIRUBIN,TOTAL 0.3 MG/DL (0.1-1.0); BUN/CREATININE RATIO 10; CALCIUM 8.7 MG/DL (8.5-10.1); CARBON DIOXIDE 22 MMOL/L (21-32); CHLORIDE 107 MMOL/L (98-107); CREATININE SERUM 0.69 MG/DL (0.60-1.30); GFR ESTIMATED > 60; GLUCOSE 89 MG/DL (70-105); POTASSIUM 3.8 MMOL/L (3.6-5.0); SODIUM 137 MMOL/L (135-145); TOTAL PROTEIN 6.9 GM/DL (6.4-8.2)
== END 2020-11-05 | disposition home or self-care (01) ==
LOC: ONC 12:37
PROVIDERS: ATTEND Internal Medicine Hematology & Oncology
DX: C50.411 Malignant neoplasm of upper-outer quadrant of right female breast (principal); C20 Malignant neoplasm of rectum; E11.9 Type 2 diabetes mellitus without complications; D50.9 Iron deficiency anemia, unspecified; E78.5 Hyperlipidemia, unspecified; K21.9 Gastro-esophageal reflux disease without esophagitis; F31.81 Bipolar II disorder; F41.9 Anxiety disorder, unspecified; Z88.1 Allergy status to other antibiotic agents; Z90.11 Acquired absence of right breast and nipple; Z17.1 Estrogen receptor negative status [ER-]; E55.9 Vitamin D deficiency, unspecified; M89.8X5 Other specified disorders of bone, thigh; Z79.84 Long term (current) use of oral hypoglycemic drugs; Z79.899 Other long term (current) drug therapy
CPT/HCPCS: 36591; 80053; 82306; 85025; 99213

== ENCOUNTER → 2020-11-03 | Outpatient (CLI) | payer MEDICARE, MEDICAID ==
[~2020-11-03] MED LIST changes: +BARIUM SUSPENSION 2.1% (VANILLA SILQ) 450 ML PO ONE; +CATHETER FLUSH 10 ML SYR IV PRN; -FAMOTIDINE 20MG/2ML IV (CANCER CTR) IV SCH; +HEParin (CENTRAL IV FLUSH) 500 UNIT/5 ML SYR IV ONE; +HEParin (CENTRAL IV FLUSH) 500 UNIT/5 ML SYR ONE; +HOLD METFORMIN - RECEIVED CONTRAST 20 ML VIAL IV SCH; +IOHEXOL 350 MG/ML 100 ML (OMNIPAQUE 350) VIAL IV ONE; -LORazepam INJ 2 MG/ML VIAL CANCER CTR IV SCH; +NS 100 ML (IVPB) BAG IV ONE; -NS IV 1000 ML (CANCER CTR) IV SCH; -PEGFILGRASTIM-BMEZ 6 MG/0.6 ML ZIEXTENZO SQ SCH; -diphenhydrAMINE 50 MG/ML INJ (CANCER CENTER) IV PRN
--- NOTE | 2020-11-03 11:37 | Diagnostic Imaging Report ---
EXAMINATION: CT chest with intravenous contrast, CT abdomen and pelvis without and with intravenous contrast. TECHNIQUE: Pre and post intravenous contrast axial imaging of the abdomen and pelvis and post contrast axial imaging of the chest were performed. All CT scans use one or more of the following dose optimizing techniques: automated exposure control, MA and/or KvP adjustment based on patient size and exam type or iterative reconstruction. HISTORY: Breast cancer. COMPARISON: 02/28/2021 and 08/24/2018. FINDINGS: There is no edema or pneumonia. No pleural effusion. No pneumothorax. No suspicious nodules. There are subcentimeter lymph nodes in both axillae. There are surgical clips associated with both breasts with bilateral breast implants. There is no mediastinal lymphadenopathy. There is right-sided port catheter. Heart size is normal. There are no coronary artery calcifications. No pericardial effusion. Aorta is normal in caliber. The liver is normal without focal lesion. There is no biliary ductal dilation. Gallbladder is normal. Pancreas is normal. Spleen is normal. Adrenal glands are normal. The kidneys are normal. There is no hydronephrosis. Urinary bladder is normal. An intrauterine device is present. Visualized bowel is normal in caliber without obstruction or inflammation. No free fluid or air. No abdominal or pelvic lymphadenopathy. Aorta is normal in caliber without aneurysm. There are no suspicious osseous lesions. IMPRESSION: 1. No metastatic disease is seen in the chest, abdomen or pelvis. Dictated by: Dictated on workstation # [id number]
--- NOTE | 2020-11-03 18:55 | Diagnostic Imaging Report ---
INDICATION: Previous CTs reported history of breast cancer. The patient is now complaining of one-month history of left knee pain with no known injury. COMPARISON: Correlation made with a CT chest, abdomen, pelvis dated 11/03/2020. I have no bone scan comparison. TECHNIQUE: The patient received 25.2 mCi technetium-99m MDP intravenously. After 3 hours, whole-body planar imaging performed. FINDINGS: There is increased uptake about the mid and lateral aspect of the right knee involving the joint surfaces and/or proximal tibial metaphysis. The appearance suggests uptake on an arthritic basis but can also be seen owing to a stress injury or conceivably metastatic deposit. If not already performed, dedicated plain films of the right knee recommended. If done, I do not have copies of that study. We do note that the soft tissues of the right lower leg showed relative increased uptake compared to the contralateral left, and this may reflect a hyperemic state. Femurs and hips are symmetric and normal. The bony pelvis is unremarkable. Cervical, thoracic, and lumbar spine; sternum; and manubrium are unremarkable. No suspicious rib, calvarial, or upper extremity finding. IMPRESSION: 1. Abnormal uptake isolated to the right lower extremity where there is juxta-articular uptake at the midline and medial knee, which is likely arthritic; however, plain film correlation recommended. There is also some subtle relative increased soft tissue uptake about the right lower leg, which may reflect a hyperemic or inflammatory process superimposed. 2. Remaining sites were unremarkable. No other area of abnormal or focal increased uptake. Dictated by: Dictated on workstation # [id number]
== END ==
LOC: CARD 10:00
PROVIDERS: ATTEND Internal Medicine Hematology & Oncology
DX: M79.652 Pain in left thigh (principal); M25.562 Pain in left knee; Z85.3 Personal history of malignant neoplasm of breast
CPT/HCPCS: 71260; 74178; 78306

== ENCOUNTER → 2020-12-25 | Outpatient (CLI) | payer MEDICARE, MEDICAID ==
[~2020-12-25] MED LIST changes: -BARIUM SUSPENSION 2.1% (VANILLA SILQ) 450 ML PO ONE; -CATHETER FLUSH 10 ML SYR IV PRN; -HEParin (CENTRAL IV FLUSH) 500 UNIT/5 ML SYR IV ONE; -HEParin (CENTRAL IV FLUSH) 500 UNIT/5 ML SYR ONE; -HOLD METFORMIN - RECEIVED CONTRAST 20 ML VIAL IV SCH; -IOHEXOL 350 MG/ML 100 ML (OMNIPAQUE 350) VIAL IV ONE; -NS 100 ML (IVPB) BAG IV ONE
== END ==
LOC: LAB 09:49
PROVIDERS: ATTEND Internal Medicine Medical Oncology
DX: Z53.9 Procedure and treatment not carried out, unspecified reason (principal)

== ENCOUNTER 2021-01-08 06:50 | Observation (INO) | payer MEDICARE, MEDICAID ==
[~2021-01-08] VITALS: Ht 157.5 cm; Wt 116.6 kg
[~2021-01-08 06:50] MED LIST changes: -QUET50TA22 PO; +QUET50TA23 PO
[2021-01-08 07:44] LABS: ALBUMIN 3.7 GM/DL (3.2-4.5); BASOPHILS % (AUTO) 0 % (0-10); EOSINOPHILS % (AUTO) 0 % (0-10); HEMATOCRIT 36 % (35-52); HEMOGLOBIN 11.5 g/dL (11.5-16.0); LYMPHOCYTES # (AUTO) 2.9 10^3/uL (1.0-4.0); LYMPHOCYTES % (AUTO) 42 % (12-44); MEAN CORPUSCULAR HEMOGLOBIN 26 pg (25-34); MEAN CORPUSCULAR HGB CONC 32 g/dL (32-36); MEAN CORPUSCULAR VOLUME 83 fL (80-99); MEAN PLATELET VOLUME 9.9 fL (9.0-12.2); MONOCYTES # (AUTO) 0.3 10^3/uL (0.0-1.0); MONOCYTES % (AUTO) 5 % (0-12); NEUTROPHILS # (AUTO) 3.5 10^3/uL (1.8-7.8); NEUTROPHILS % (AUTO) 52 % (42-75); PLATELET COUNT 390 10^3/uL (130-400); WHITE BLOOD COUNT 6.8 10^3/uL (4.3-11.0)
[2021-01-08] MEDS ORDERED: ONDANSETRON 4 MG/2 ML (SDV) Z0FRAN ONE (07:44)
[2021-01-08 07:45] LABS: CHLORIDE 106 MMOL/L (98-107); POTASSIUM 3.6 MMOL/L (3.6-5.0); SODIUM 139 MMOL/L (135-145)
[2021-01-08 07:47] LABS: GLUCOSE 101 MG/DL (70-105); TOTAL PROTEIN 6.5 GM/DL (6.4-8.2)
[2021-01-08 07:48] LABS: CARBON DIOXIDE 22 MMOL/L (21-32)
[2021-01-08 07:49] LABS: BILIRUBIN,TOTAL 0.3 MG/DL (0.1-1.0)
[2021-01-08 07:50] LABS: ALKALINE PHOSPHATASE 45 U/L (40-136)
[2021-01-08 07:51] LABS: CREATININE SERUM 0.71 MG/DL (0.60-1.30); GFR ESTIMATED 114
[2021-01-08 07:52] LABS: BUN/CREATININE RATIO 6
[2021-01-08 07:53] LABS: ALANINE AMINOTRANSFERASE 18 U/L (0-55)
[2021-01-08 07:55] LABS: FIBRIN DEGRADATION PRODUCTS 0.41 UG/ML (0.00-0.49); INR 1.2 (0.8-1.4); PROTHROMBIN TIME PATIENT 15.1 SEC (12.2-14.7)
--- NOTE | 2021-01-08 08:04 | Diagnostic Imaging Report ---
PROCEDURE: CT head wo r/o stroke. TECHNIQUE: Multiple contiguous axial images were obtained through the brain without the use of intravenous contrast. Auto Exposure Controls were utilized during the CT exam to meet ALARA standards for radiation dose reduction. INDICATION: Left-sided weakness with dizziness. Compared with study 08/17/2019. There is no intracranial hemorrhage. No focal or generalized cerebral edema. No suspicious asymmetric intracranial arterial intraluminal hyperdensities are found. There is no loss of the normal matthew-white matter differentiations. The basilar cisterns patent. There is no sulcal effacement. Orbits, sinuses and calvarium nonacute. Impression: No hemorrhage, edema or acute finding at noncontrasted stroke protocol CT. Dictated by: Dictated on workstation # [id number]
--- NOTE | 2021-01-08 08:14 | Diagnostic Imaging Report ---
EXAMINATION: Chest 1 view HISTORY: Chest pain COMPARISON: 09/03/2020 FINDINGS: The lungs are clear without edema or pneumonia. No pleural effusion or pneumothorax. Heart size is normal. Right port catheter tip terminates in the superior vena cava. Bilateral breast tissue warp worker present IMPRESSION: 1. Clear lungs. Dictated by: Dictated on workstation # [id number]
[2021-01-08] MEDS ORDERED: diphenhydrAMINE 50 MG/ML INJ (BENADRYL) IV STA (08:18)
[2021-01-08] MEDS ORDERED: KETOROLAC 30 MG/ML VIAL IVP STA (08:18)
[2021-01-08] MEDS ORDERED: PROMETHAZINE INJ 25 MG/ML (PHENERGAN) AMP IVP STA (08:18)
[2021-01-08] MEDS ORDERED: NS IV 1000 ML 1,000 ML IV STA (08:18)
[2021-01-08] MEDS ORDERED: HOLD METFORMIN - RECEIVED CONTRAST 20 ML VIAL IV SCH (08:30)
[2021-01-08] MEDS ORDERED: CATHETER FLUSH 10 ML SYR IV PRN ×2 (08:30→13:30)
[2021-01-08] MEDS ORDERED: NS 100 ML (IVPB) BAG IV ONE (08:30)
[2021-01-08] MEDS ORDERED: IOHEXOL 350 MG/ML 100 ML (OMNIPAQUE 350) VIAL IV ONE (08:30)
--- NOTE | 2021-01-08 08:59 | ED Neurological Problem ---
General Chief Complaint: Neuro-Stroke Like Symptoms Stated Complaint: BERRIOS Nursing Triage Note: brought in by [facility] for headache radiating down left jaw. reports coughing/chest pain earier. Source: patient Exam Limitations: no limitations History of Present Illness Date Seen by Provider: Jan 08, 2021 Time Seen by Provider: 07:36 Initial Comments Here with report of waking up with left-sided facial weakness and left arm weakness and numbness. Woke up at 5 AM with the symptoms and also had left- sided chest pain. Went to bed last night at 11 PM without any symptoms. Has had history of similar a few years ago. Does have history of previous right- sided CVA and history of blood clots. Not currently on anticoagulation. Denies any recent injuries. States otherwise recently has been well. Does have nausea with one episode of vomiting. Chest pain currently resolved. Denies breathing problems. Denies fever chills. She has been vaccinated for COVID-19. Denies dysuria or diarrhea. Timing/Duration: 1-3 hours, other (Last known well time 11 PM last night) Severity: mild, moderate Associated Symptoms: No fever/chills; nausea/vomiting, weakness Allergies and Home Medications Allergies Coded Allergies: aprepitant (Verified Allergy, Severe, 05/14/20) PATIENT STATES COULD NOT BREATH fosaprepitant (Verified Allergy, Severe, 05/14/20) PATIENT STATES COULD NOT BREATH latex (Verified Allergy, Severe, BLISTERS, 08/24/17) penicillin (Verified Allergy, Severe, ITCHING, 08/24/17) Sulfa (Sulfonamide Antibiotics) (Verified Allergy, Unknown, RASH, 08/24/17) Uncoded Allergies: STAWBERRIES (Allergy, Mild, RASH, 09/04/20) Patient Home Medication List Home Medication List Reviewed: Yes Acetaminophen (Tylenol Extra Strength) 500 Mg Tablet, 500-1,000 MG PO Q6H PRN for PAIN-MILD (1-4), (Reported) Entered as Reported by: ZHOU WRIGHT on 07/21/20 1215 Aspirin/Acetaminophen/Caffeine (Excedrin Migraine Caplet) 1 Each Tablet, 2 EACH PO Q6-8HR PRN for Headache, (Reported) Entered as Reported by: ZHOU WRIGHT on 07/21/20 1215 Calcium Carbonate (Tums Ultra) 400 Mg Tab.chew, 400-800 MG PO Q6H PRN for INDIGESTION, (Reported) Entered as Reported by: ZHOU WRIGHT on 07/21/201214 Cetirizine HCl (Zyrtec) 10 Mg Tablet, 10 MG PO DAILY PRN for ALLERGY SYMPTOMS, (Reported) Entered as Reported by: ZHOU WRIGHT on 07/21/201214 Cholecalciferol (Vitamin D3) (Vitamin D3) 25 Mcg Tablet, 25 MCG PO DAILY, (Reported) Entered as Reported by: ZHOU WRIGHT on 09/04/20 104 Cyclosporine (Restasis) 1 Each Droperette, 1 DROP OU BID, (Reported) Entered as Reported by: ZHOU WRIGHT on 07/21/201214 Erenumab-Aooe (Aimovig Autoinjector) 140 Mg/1 Ml Auto.injct, 140 MG IJ MONTHLY, (Reported) Entered as Reported by: ZHOU WRIGHT on 07/21/201214 Lurasidone HCl (Latuda) 80 Mg Tablet, 80 MG PO 1800 W/MEAL, (Reported) Entered as Reported by: ZHOU WRIGHT on 09/04/20 104 Metoprolol Succinate (Metoprolol Succinate) 50 Mg Tab.er.24h, 50 MG PO DAILY, (Reported) Entered as Reported by: ZHOU WRIGHT on 09/04/20 104 Metoprolol Succinate (Metoprolol Succinate) 50 Mg Tab.er.24h, 50 MG PO Q12H Prescribed by: KADIE NEVAREZ on 09/04/20 183 Mometasone Furoate (Mometasone Furoate) 45 Gm Cream..g., 1 APPLIC TOP DAILY PRN for RASH, (Reported) Entered as Reported by: ZHOU WRIGHT on 09/04/20 104 Ondansetron HCl (Ondansetron HCl) 8 Mg Tablet, 8 MG PO Q8H PRN for NAUSEA/VOMITING-1ST LINE, (Reported) Entered as Reported by: ZHOU WRIGHT on 07/21/201214 Pantoprazole Sodium (Pantoprazole Sodium) 40 Mg Tablet.dr, 40 MG PO BID, (Reported) Entered as Reported by: ZHOU WRIGHT on 07/21/20 121 Sorbitol Solution (Sorbitol) 1 Ml Solution, 15-30 ML PO TID PRN for CONSTIPATION, (Reported) Entered as Reported by: ZHOU WRIGHT on 07/21/201214 Sucralfate (Sucralfate) 1 Gm Tablet, 1 GM PO QID PRN for ULCERS, (Reported) Entered as Reported by: ZHOU WRIGHT on 07/21/205 Review of Systems Review of Systems Constitutional: see HPI; No fever Eyes: Denies Blurred Vision, Denies Decreased Acuity Ears, Nose, Mouth, Throat: denies ear pain, denies nose pain Respiratory: No cough, No short of breath Cardiovascular: chest pain (Left-sided resolved); No edema Gastrointestinal: No diarrhea; nausea, vomiting Genitourinary: no symptoms reported Musculoskeletal: No back pain, No joint pain; muscle pain (Left chest wall and left arm), muscle weakness (Left arm and left face); No neck pain Skin: No change in color, No lesions Psychiatric/Neurological: Headache (Left-sided), Weakness Endocrine: No Symptoms Reported All Other Systems Reviewed Negative Unless Noted: Yes Past Fnywbdf-Qlmoxr-Xzzzhb Hx Patient Social History Tobacco Use?: Yes Tobacco type used: Cigarettes Smoking Status: Current Someday Smoker Substance use?: No Alcohol Use?: No Pt feels they are or have been: No Immunizations Up To Date Tetanus Booster (TDap): Less than 5yrs PED Vaccines UTD: Yes First/Initial COVID19 Vaccinat: 07/15/20 Second COVID19 Vaccination Gunner: 08/15/20 COVID19 Vaccine Pipe Organ Tuner And Repairer: nena Seasonal Allergies Seasonal Allergies: No Past Medical History Surgeries: Yes (Loop Recorder, R PAC, BILAT MASTECTOMY 04/01/21) Cardiac, Orthopedic, 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, Vascular Surgery Respiratory: No Asthma Currently Using CPAP: No Currently Using BIPAP: No Cardiac: Yes (PFO, SVT) Congenital Heart Disease, Deep Vein Thrombosis, High Cholesterol, Palpitations Neurological: Yes Seizure Disorder, Stroke 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 Disorders: Yes (MENORRHAGIA) Female 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 CASH History: 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 Sexually Transmitted Disease: No HIV/AIDS: No Genitourinary: Yes Kidney Stones, UTI-Chronic Gastrointestinal: Yes Irritable Bowel Musculoskeletal: Yes Degenerate Disk Disease, Foot Drop, Scoliosis, Chronic Back Pain, Fractures Endocrine: No (STATES CHEMO HAS AFFECTED BLOOD SUGAR) Diabetes, Non-Insulin dep HEENT: No Loss of Vision: Bilateral Hearing Impairment: Denies Cancer: Yes Breast Did You Recieve Any Treatments: Yes What Type of Treatment Did You: Chemotherapy Psychosocial: Yes (D.I.D.) Anxiety, PTSD, Bipolar Integumentary: No Herpes Blood Disorders: Yes (HX OF HYPERCOLAGUABLE STATE) Adverse Reaction/Blood Tranf: No (N/A) Family Medical History Reviewed Nursing Family Hx Antiphospholipid syndrome 19 MOTHER Diabetes mellitus 19 FATHER G8 BROTHER FH: aneurysm 19 FATHER FH: lupus 19 MOTHER FHx: congestive heart failure 19 FATHER FHx: renal failure 19 MOTHER Heart murmur 19 MOTHER Lupus anticoagulant disorder 19 MOTHER Patent foramen ovale 19 FATHER Barry syndrome G8 SISTER Physical Exam Vital Signs Vital Signs - First Documented 01/08/21 07:04 Temp 36.7 Pulse 80 Resp 17 B/P (MAP) 116/85 (95) Pulse Ox 100 O2 Delivery Room Air Capillary Refill : Less Than 3 Seconds Height, Weight, BMI Height: 5'4.00" Weight: 189lbs. 9.0oz. 85.054532rg; 46.00 BMI Method:Stated General Appearance: WD/WN, no apparent distress HEENT: PERRL/EOMI, pharynx normal, other (Mild left facial droop noted at the lip on the left side) Neck: non-tender, full range of motion, supple, normal inspection Respiratory: lungs clear, normal breath sounds Cardiovascular: regular rate, rhythm, no murmur Gastrointestinal: non tender, soft Extremities: non-tender, no pedal edema Neurologic/Psychiatric: alert, normal mood/affect, oriented x 3 Crainal Nerves: abnormal speech (Slowed) Coordination/Gait: ABN nose to finger (L) Motor/Sensory: pronator drift (L) (Arm), weak motor strength LUE Skin: normal color, warm/dry Stroke NIH Stroke Scale Assessment Level of Consciousness: 0=Alert (0), Level of Consciousness-Questions: 0=Answers both month/age (0), LOC Commands: 0=Performs both tasks (0), Visual Doyle: 0=No visual loss (0), Facial Movement (Facial Paresis): 1=Minor paralysis (1), Motor Function-Arms Right: 0=No drift (0), Motor Function-Arms Left: 0=No drift (0), Motor Function-Legs Right: 0=No drift (0), Motor Function-Legs Left: 2=Some effort/gravity (2), Limb Ataxia: 1=Present in one limb (1), Sensory: 1=Mild to Moderate loss (1), Best Language: 0=No aphasia (0), Dysarthria: 0=Normal (0), Extinction & Inattention: 0=No abnormality (0), Total: Stroke Thrombolytic Exclusion Age 18 or Over: Yes History of CVA: No Severe Hypertension: No GI or Bleed: No Subarachnoid Hemorrhage: No Intracranial Neoplasm/Aneurysm: No Puncture of Non-Compressible V: No Recent CPR: No Diabetic Hemorrhagic Retinopat: No Organ Biopsy: No Recent Obstetric Delivery: No Significant Hepatic Dysfunctio: No NIH Stoke Scale >22: No Progress/Results/Core Measures Results/Orders Lab Results Laboratory Tests Test 01/08/21 07:19 01/08/21 08:19 Range/Units White Blood Count 6.8 4.3-11.0 10^3/uL Red Blood Count 4.35 3.80-5.11 10^6/uL Hemoglobin 11.5 11.5-16.0 g/dL Hematocrit 36 35-52 % Mean Corpuscular Volume 83 80-99 fL Mean Corpuscular Hemoglobin 26 25-34 pg Mean Corpuscular Hemoglobin Concent 32 32-36 g/dL Red Cell Distribution Width 18.8 H 10.0-14.5 % Platelet Count 390 130-400 10^3/uL Mean Platelet Volume 9.9 9.0-12.2 fL Immature Granulocyte % (Auto) 0 % Neutrophils (%) (Auto) 52 42-75 % Lymphocytes (%) (Auto) 42 12-44 % Monocytes (%) (Auto) 5 0-12 % Eosinophils (%) (Auto) 0 0-10 % Basophils (%) (Auto) 0 0-10 % Neutrophils # (Auto) 3.5 1.8-7.8 10^3/uL Lymphocytes # (Auto) 2.9 1.0-4.0 10^3/uL Monocytes # (Auto) 0.3 0.0-1.0 10^3/uL Eosinophils # (Auto) 0.0 0.0-0.3 10^3/uL Basophils # (Auto) 0.0 0.0-0.1 10^3/uL Immature Granulocyte # (Auto) 0.0 0.0-0.1 10^3/uL Prothrombin Time 15.1 H 12.2-14.7 SEC INR Comment 1.2 0.8-1.4 Activated Partial Thromboplast Time 46 H 24-35 SEC D-Dimer 0.41 0.00-0.49 UG/ML Sodium Level 139 135-145 MMOL/L Potassium Level 3.6 3.6-5.0 MMOL/L Chloride Level 106 98-107 MMOL/L Carbon Dioxide Level 22 21-32 MMOL/L Anion Gap 11 5-14 MMOL/L Blood Urea Nitrogen 4 L 7-18 MG/DL Creatinine 0.71 0.60-1.30 MG/DL Estimat Glomerular Filtration Rate 114 BUN/Creatinine Ratio 6 Glucose Level 101 70-105 MG/DL Calcium Level 9.0 8.5-10.1 MG/DL Corrected Calcium 9.2 8.5-10.1 MG/DL Total Bilirubin 0.3 0.1-1.0 MG/DL Aspartate Amino Transf (AST/SGOT) 16 5-34 U/L Alanine Aminotransferase (ALT/SGPT) 18 0-55 U/L Alkaline Phosphatase 45 40-136 U/L Troponin I < 0.028 <0.028 NG/ML Total Protein 6.5 6.4-8.2 GM/DL Albumin 3.7 3.2-4.5 GM/DL Glucometer 99 70-110 MG/DL My Orders Orders - VALERIA GUILLERMO MD Cbc With Automated Diff (01/08/21 07:35) Protime With Inr (01/08/21 07:35) Partial Thromboplastin Time (01/08/21 07:35) Comprehensive Metabolic Panel (01/08/21 07:35) Fibrin Degradation Products (01/08/21 07:35) Troponin I (01/08/21 07:35) Ua Culture If Indicated (01/08/21 07:35) Chest 1 View, Ap/Pa Only (01/08/21 07:35) Ekg Tracing (01/08/21 07:35) Nothing By Mouth (01/08/21 Breakfast) Accucheck Stat ONCE (01/08/21 07:35) Ed Iv/Invasive Line Start (01/08/21 07:35) Vital Signs Stroke Patient Q15M (01/08/21 07:35) Ct Head Wo-R/O Stroke (01/08/21 07:35) O2 (01/08/21 07:35) Intake & Output 06,14,22 (01/08/21 07:35) Monitor-Rhythm Ecg Trace Only (01/08/21 07:35) Dysphagia Screening Tool (01/08/21 07:35) Lipid Panel (01/09/21 06:00) Ondansetron Injection (Zofran Injectio (01/08/21 07:44) Ct Angio Head/Neck (01/08/21 08:18) Ketorolac Injection (Toradol Injection) (01/08/21 08:18) Promethazine Injection (Phenergan Injec (01/08/21 08:18) Ns Iv 1000 Ml (Sodium Chloride 0.9%) (01/08/21 08:18) Diphenhydramine Injection (Benadryl Inje (01/08/21 08:18) Iohexol Injection (Omnipaque 350 Mg/Ml 1 (01/08/21 08:30) Received Contrast (Hold Metformin- Contr (01/08/21 08:30) Sodium Chloride Flush (Catheter Flush Sy (01/08/21 08:30) Ns (Ivpb) (Sodium Chloride 0.9% Ivpb Bag (01/08/21 08:30) Medications Given in ED Current Medications Medications Dose Ordered Sig/Diomedes Route Start Time Stop Time Status Last Admin Dose Admin Iohexol 75 ml ONCE ONCE IV 01/08/21 08:30 01/08/21 08:31 DC 01/08/21 08:54 75 ML Ondansetron HCl 4 mg STK-MED ONCE .ROUTE 01/08/21 07:44 01/08/21 07:47 DC 01/08/21 07:46 4 MG Sodium Chloride 100 ml ONCE ONCE IV 01/08/21 08:30 01/08/21 08:31 DC 01/08/21 08:55 80 ML Vital Signs/I&O 01/08/21 01/08/21 01/08/21 01/08/21 07:04 08:08 09:02 10:00 Temp 36.7 Pulse 80 75 69 69 Resp 17 18 18 18 B/P (MAP) 116/85 (95) 125/80 156/95 149/94 Pulse Ox 100 98 99 92 O2 Delivery Room Air Room Air Room Air Blood Pressure Mean: 95 FSBG Bedside Testing Finger Stick Blood Glucose: 99 Blood Glucose Action Taken: RN AND NOTIFIED Progress Progress Note : Progress Note Seen and evaluated. Stroke protocol initiated. Patient is outside window of TPA as last known well time is 11 PM last night. She does have history of anticoagulation but is not currently on that. CT head ordered and reviewed and is negative. Patient did had nausea and one episode of vomiting. Zofran 4 mg IV. We will initiate normal saline 1 L bolus. I did discuss with her after records review regarding cause of symptoms. She apparently has had similar presentation in the past and had headache associated with that. Work-up at that time did not reveal any significant findings and treatment for possible migraine with Benadryl, Toradol and Phenergan was initiated. This did previously resolve her symptoms. I did discuss at length with her the current work-up and ultimately we decided we will go ahead and get CT angiogram of the head and neck given her history but also treat for possible migraine as well. Toradol 30 mg IV, Benadryl 25 mg IV and Phenergan 12.5 mg IV initiated as well as CT angiogram of the head and neck ordered. Initial stroke scale was 5 due to left face and left arm numbness and weakness and pronator drift with decreased [id number] on the left. Monitor patient. 1055: Patient has passed her dysphagia screen but still has some intermittent left-sided weakness. I did discuss the case with Dr. Pedro. Given her persistence of symptoms, we will go ahead and admit her observation status and have MRI of the brain done. Dr. Pedro accepts patient for admission, observation status. Discussed with patient who agrees with plan. Initial ECG Impression Date: Jan 08, 2021 Initial ECG Impression Time: 08:07 Initial ECG Rate: 73 Initial ECG Rhythm: Normal Sinus Comment Sinus rhythm with normal but leftward axis. No evidence of ST elevation ME. Similar but improved rate from previous of 09/03/2020. Interpreted by me. Diagnostic Imaging Diagonstic Imaging: CT Plain Films/CT/US/NM/MRI: head Comments [facility] [place], [place] NAME: COLTON ORTIZ [facility] REC#: [id number] PT STATUS: REG ER : 1985 PHYSICIAN: VALERIA GUILLERMO MD ADMIT DATE: 01/08/21/ER Draft Date of Exam:01/08/21 CT HEAD WO-R/O STROKE PROCEDURE: CT head wo r/o stroke. TECHNIQUE: Multiple contiguous axial images were obtained through the brain without the use of intravenous contrast. Auto Exposure Controls were utilized during the CT exam to meet ALARA standards for radiation dose reduction. INDICATION: Left-sided weakness with dizziness. Compared with study 08/17/2019. There is no intracranial hemorrhage. No focal or generalized cerebral edema. No suspicious asymmetric intracranial arterial intraluminal hyperdensities are found. There is no loss of the normal matthew-white matter differentiations. The basilar cisterns patent. There is no sulcal effacement. Orbits, sinuses and calvarium nonacute. Impression: No hemorrhage, edema or acute finding at noncontrasted stroke protocol CT. Dictated on workstation # [id number] Dict: 01/08/21 0758 Trans: 01/08/21802 GÉNESIS [id number] Interpreted by: PHYLLIS PEREYRA Electronically signed by: Diagonstic Imaging: Xray Plain Films/CT/US/NM/MRI: chest Comments [facility] [place] [place] NAME: COLTON ORTIZ [facility] REC#: [id number] PT STATUS: REG ER : 1985 PHYSICIAN: VALERIA GUILLERMO MD ADMIT DATE: 01/08/21/ER Draft Date of Exam:01/08/21 CHEST 1 VIEW, AP/PA ONLY EXAMINATION: Chest 1 view HISTORY: Chest pain COMPARISON: 09/03/2020 FINDINGS: The lungs are clear without edema or pneumonia. No pleural effusion or pneumothorax. Heart size is normal. Right port catheter tip terminates in the superior vena cava. Bilateral breast tissue handkerchief cutter present IMPRESSION: 1. Clear lungs. Dictated on workstation # [id number] Dict: 01/08/21 0810 Trans: 01/08/21 08 GÉNESIS [id number] Interpreted by: NATALIE MOREIRA MD Electronically signed by: Reviewed: Reviewed by Me Diagonstic Imaging: CT Plain Films/CT/US/NM/MRI: head, other Comments [facility] [place] NAME: COLTON ORTIZ [facility] REC#: [id number] PT STATUS: REG ER : 1985 PHYSICIAN: VALERIA GUILLERMO MD ADMIT DATE: 01/08/21/ER Draft Date of Exam:01/08/21 CT ANGIO HEAD/NECK PROCEDURE: CT angiography of the head and CT angiography of the neck with and without contrast. TECHNIQUE: Contiguous noncontrast images were obtained from the skull base through the vertex. After intravenous contrast administration, helical CT angiography of the neck was performed. Source data was reformatted into 3D MIP projections. Delayed post contrast acquisition was also obtained. Auto Exposure Controls were utilized during the CT exam to meet ALARA standards for radiation dose reduction. INDICATION: Left-sided weakness. Correlation is made with head CT performed earlier the same day. There is a three-vessel branching pattern to the aortic arch. The right common carotid artery is widely patent. The left common carotid artery is widely patent. Both carotid bifurcations are unremarkable. The right and left internal carotid arteries appear to be widely patent. The left vertebral artery is dominant. Both vertebral arteries are widely patent. The basilar artery is patent. The right and left posterior cerebral arteries are patent. The M1 and M2 segments of both the right and left middle cerebral arteries appear to be widely patent. No filling defect, thromboembolism or large branch occlusion is identified. The right and left anterior cerebral arteries appear to be patent. IMPRESSION: Unremarkable CT angiogram of the head and neck. No large branch occlusion or thromboembolism is identified. Dictated on workstation # [id number] Dict: 01/08/21899 Trans: 01/08/21 0908 [facility] [id number] Interpreted by: HERACLIO HICKS MD Electronically signed by: Departure Communication (Admissions) Time/Spoke to Admitting Phy: 10:55 Impression Primary Impression: Left-sided weakness Additional Impression: TIA (transient ischemic attack) Disposition: ADMITTED INPATIENT Condition: Stable Admissions Decision to Admit Reason: Admit from ER (General) Decision to Admit/Date: Jan 08, 2021 Time/Decision to Admit Time: 10:55 Departure-Patient Inst. Referrals: [facility] (PCP/Family) Primary Care Physician VALERIA GUILLERMO MD Jan 08, 2021 08:59
--- NOTE | 2021-01-08 09:09 | Diagnostic Imaging Report ---
PROCEDURE: CT angiography of the head and CT angiography of the neck with and without contrast. TECHNIQUE: Contiguous noncontrast images were obtained from the skull base through the vertex. After intravenous contrast administration, helical CT angiography of the neck was performed. Source data was reformatted into 3D MIP projections. Delayed post contrast acquisition was also obtained. Auto Exposure Controls were utilized during the CT exam to meet ALARA standards for radiation dose reduction. INDICATION: Left-sided weakness. Correlation is made with head CT performed earlier the same day. There is a three-vessel branching pattern to the aortic arch. The right common carotid artery is widely patent. The left common carotid artery is widely patent. Both carotid bifurcations are unremarkable. The right and left internal carotid arteries appear to be widely patent. The left vertebral artery is dominant. Both vertebral arteries are widely patent. The basilar artery is patent. The right and left posterior cerebral arteries are patent. The M1 and M2 segments of both the right and left middle cerebral arteries appear to be widely patent. No filling defect, thromboembolism or large branch occlusion is identified. The right and left anterior cerebral arteries appear to be patent. IMPRESSION: Unremarkable CT angiogram of the head and neck. No large branch occlusion or thromboembolism is identified. Dictated by: Dictated on workstation # [id number]
[2021-01-08 12:58] VITALS: BP 111/80
[2021-01-08] MEDS ORDERED: ONDANSETRON 4 MG/2 ML (SDV) Z0FRAN IVP PRN (13:30)
[2021-01-08] MEDS ORDERED: FLU QUADRIvalent (3YOA+) 60 mcg/0.5 ml 2021-22(AFLURIA) IM ONE (14:00)
[2021-01-08] MEDS ORDERED: CATHETER FLUSH 10 ML SYR IV SCH (14:00)
[2021-01-08] MEDS ORDERED: GABA300C PO (15:34)
[2021-01-08] MEDS ORDERED: CHOL500049 PO (15:34)
[2021-01-08] MEDS ORDERED: TIZA-169 PO (15:34)
[2021-01-08 16:00] VITALS: BP 136/89
[2021-01-08] MEDS ORDERED: ASPIRIN 325 MG (5 GR) TABLET PO PRN (17:00)
[2021-01-08] MEDS ORDERED: KETOROLAC 30 MG/ML VIAL IVP NR (17:00)
[2021-01-08] MEDS ORDERED: GABAPENTIN 300 MG (NEURONTIN) CAP PO PRN (17:00)
[2021-01-08] MEDS ORDERED: ACETAMINOPHEN 500 MG TAB (TYLENOL) PO PRN ×2 (17:00→17:15)
[2021-01-08] MEDS ORDERED: NON-FORMULARY MEDICATION 1 EA EA (Aspirin/Acetaminophen/Caffeine (Excedrin Migraine Caplet PO PRN (17:00)
[2021-01-08] MEDS ORDERED: NON-FORMULARY MEDICATION 1 EA EA (Lurasidone HCl (Latuda) 80 MG) PO SCH (17:00)
[2021-01-08] MEDS ORDERED: PANTOPRAZOLE 40 MG (PROTONIX) TAB PO SCH (21:00)
[2021-01-08] MEDS ORDERED: meTOproloL SUCCINATE 50 MG (TOPROL XL) TAB PO SCH (21:00)
== END 2021-01-08 19:35 | disposition left against medical advice (07) ==
LOC: EDUNIT# 06:50 → ER 06:51 → UNDOADMIN 10:58 → 4TH 10:58 → UNDOADMOB 12:58 → UNDODISIN 19:35
PROVIDERS: ADMIT Family Medicine; ATTEND Family Medicine
DX: G45.9 Transient cerebral ischemic attack, unspecified (principal); J45.909 Unspecified asthma, uncomplicated; Q24.9 Congenital malformation of heart, unspecified; G40.909 Epilepsy, unspecified, not intractable, without status epilepticus; K58.9 Irritable bowel syndrome, unspecified; M41.9 Scoliosis, unspecified; M54.9 Dorsalgia, unspecified; G89.29 Other chronic pain; E11.9 Type 2 diabetes mellitus without complications; E78.00 Pure hypercholesterolemia, unspecified; F41.9 Anxiety disorder, unspecified; F17.210 Nicotine dependence, cigarettes, uncomplicated; F43.10 Post-traumatic stress disorder, unspecified; F31.9 Bipolar disorder, unspecified; Z79.82 Long term (current) use of aspirin; Z79.899 Other long term (current) drug therapy; Z86.718 Personal history of other venous thrombosis and embolism; Z85.3 Personal history of malignant neoplasm of breast; Z92.21 Personal history of antineoplastic chemotherapy
CPT/HCPCS: 36415; 70450; 70496; 70498; 71045; 80053; 82947; 84484; 85025; 85379; 85610; 85730; 93005; 93041; 96361; 96374; 96375; G0378

== ENCOUNTER → 2021-02-19 | Outpatient (CLI) | payer MEDICARE, MEDICAID ==
[~2021-02-19] MED LIST changes: +CHOL500049 PO; +CYCL10TA25 PO; -CYCL10TA9 PO; +GABA300C PO; +ONDA-106 PO; -ONDA8TAB15 PO; +TIZA-169 PO
== END ==
LOC: ONC 09:00
PROVIDERS: ATTEND Internal Medicine Hematology & Oncology
DX: Z45.2 Encounter for adjustment and management of vascular access device (principal)
CPT/HCPCS: 96523

== ENCOUNTER 2021-03-17 09:45 | Outpatient (RCR) | payer MEDICARE, MEDICAID ==
[2020-12-25 09:23] LABS: BASOPHILS % (AUTO) 1 % (0-10); EOSINOPHILS % (AUTO) 0 % (0-10); HEMATOCRIT 38 % (35-52); HEMOGLOBIN 12.2 g/dL (11.5-16.0); LYMPHOCYTES % (AUTO) 39 % (12-44); MEAN CORPUSCULAR HEMOGLOBIN 26 pg (25-34); MEAN CORPUSCULAR HGB CONC 32 g/dL (32-36); MEAN CORPUSCULAR VOLUME 81 fL (80-99); MEAN PLATELET VOLUME 9.5 fL (9.0-12.2); MONOCYTES # (AUTO) 0.6 10^3/uL (0.0-1.0); MONOCYTES % (AUTO) 7 % (0-12); NEUTROPHILS # (AUTO) 4.1 10^3/uL (1.8-7.8); NEUTROPHILS % (AUTO) 53 % (42-75); PLATELET COUNT 425 10^3/uL (130-400); WHITE BLOOD COUNT 7.7 10^3/uL (4.3-11.0)
[2020-12-25 09:44] LABS: ALBUMIN 4.2 GM/DL (3.2-4.5); BILIRUBIN,TOTAL 0.4 MG/DL (0.1-1.0); CALCIUM 9.9 MG/DL (8.5-10.1); CREATININE SERUM 0.72 MG/DL (0.60-1.30); TOTAL PROTEIN 7.4 GM/DL (6.4-8.2)
[2021-03-17 10:44] LABS: BASOPHILS % (AUTO) 1 % (0-10); EOSINOPHILS % (AUTO) 1 % (0-10); HEMATOCRIT 33 % (35-52); HEMOGLOBIN 10.1 g/dL (11.5-16.0); LYMPHOCYTES # (AUTO) 2.4 10^3/uL (1.0-4.0); LYMPHOCYTES % (AUTO) 35 % (12-44); MEAN CORPUSCULAR HEMOGLOBIN 26 pg (25-34); MEAN CORPUSCULAR HGB CONC 31 g/dL (32-36); MEAN CORPUSCULAR VOLUME 84 fL (80-99); MEAN PLATELET VOLUME 9.5 fL (9.0-12.2); MONOCYTES # (AUTO) 0.5 10^3/uL (0.0-1.0); MONOCYTES % (AUTO) 7 % (0-12); NEUTROPHILS # (AUTO) 3.8 10^3/uL (1.8-7.8); NEUTROPHILS % (AUTO) 56 % (42-75); PLATELET COUNT 322 10^3/uL (130-400); WHITE BLOOD COUNT 6.8 10^3/uL (4.3-11.0)
[2021-03-17 11:01] LABS: ALBUMIN 4.1 GM/DL (3.2-4.5); BILIRUBIN,TOTAL 0.3 MG/DL (0.1-1.0); CALCIUM 9.6 MG/DL (8.5-10.1); CREATININE SERUM 0.7 MG/DL (0.60-1.30); POTASSIUM 3.6 MMOL/L (3.6-5.0); TOTAL PROTEIN 7.5 GM/DL (6.4-8.2)
== END 2021-03-25 | disposition home or self-care (01) ==
LOC: ONC 09:45
PROVIDERS: ATTEND Internal Medicine Hematology & Oncology
DX: Z45.2 Encounter for adjustment and management of vascular access device (principal); C50.411 Malignant neoplasm of upper-outer quadrant of right female breast; E55.9 Vitamin D deficiency, unspecified; E11.9 Type 2 diabetes mellitus without complications; E78.5 Hyperlipidemia, unspecified; Z90.11 Acquired absence of right breast and nipple
CPT/HCPCS: 36591; 80053; 82306; 85025; 99213

== ENCOUNTER 2021-04-21 10:12 | Outpatient (RCR) | payer MEDICARE, MEDICAID ==
[2021-05-08] MEDS ORDERED: ACHD5005 PO ×2 (06:38→06:43)
== END 2021-05-11 11:17 | disposition home or self-care (01) ==
LOC: ONC 10:12
PROVIDERS: ATTEND Internal Medicine Hematology & Oncology
DX: Z45.2 Encounter for adjustment and management of vascular access device (principal); C50.411 Malignant neoplasm of upper-outer quadrant of right female breast; E55.9 Vitamin D deficiency, unspecified; E11.9 Type 2 diabetes mellitus without complications; E78.5 Hyperlipidemia, unspecified; Z90.11 Acquired absence of right breast and nipple

== ENCOUNTER 2021-04-26 17:49 | Emergency (ER) | payer MEDICARE, MEDICAID ==
[~2021-04-26] VITALS: Ht 154.9 cm; Wt 116.6 kg
[2021-04-26 18:56] LABS: BILIRUBIN,URINE NEGATIVE (NEGATIVE); CLARITY,URINE CLEAR; COLOR,URINE YELLOW; GLUCOSE, URINE (UA) NEGATIVE (NEGATIVE); KETONES,URINE NEGATIVE (NEGATIVE); LEUKOCYTE ESTERASE ,URINE NEGATIVE (NEGATIVE); NITRITE,URINE NEGATIVE (NEGATIVE); PH,URINE 5.5 (5-9); PROTEIN,URINE NEGATIVE (NEGATIVE)
[2021-04-26 19:01] LABS: BACTERIA,URINE NEGATIVE /HPF; SQUAMOUS EPITHELIAL CELL,UR RARE /HPF
[2021-04-26 19:02] LABS: BASOPHILS % (AUTO) 0 % (0-10); EOSINOPHILS % (AUTO) 0 % (0-10); HEMATOCRIT 38 % (35-52); LYMPHOCYTES # (AUTO) 1.1 10^3/uL (1.0-4.0); LYMPHOCYTES % (AUTO) 14 % (12-44); MEAN CORPUSCULAR HEMOGLOBIN 26 pg (25-34); MEAN CORPUSCULAR HGB CONC 32 g/dL (32-36); MEAN CORPUSCULAR VOLUME 81 fL (80-99); MEAN PLATELET VOLUME 9.7 fL (9.0-12.2); MONOCYTES # (AUTO) 0.1 10^3/uL (0.0-1.0); MONOCYTES % (AUTO) 2 % (0-12); NEUTROPHILS # (AUTO) 6.7 10^3/uL (1.8-7.8); NEUTROPHILS % (AUTO) 84 % (42-75); PLATELET COUNT 400 10^3/uL (130-400)
[2021-04-26] MEDS ORDERED: ACETAMINOPHEN 500 MG TAB (TYLENOL) PO STA (19:46)
--- NOTE | 2021-04-26 19:55 | ED General ---
General Chief Complaint: Rect Problems Stated Complaint: BLOODY STOOL Nursing Triage Note: STATES LAST BM WAS BLOODY, "LIKE ON MY PERIOD". EARLIER EPISODE OF NAUSEA AND VERBALIZES SEVERE RIGHT SIDED POSTERIOR RIB PAIN. HX OF BILATERAL MASSECTOMY WITH RIB SPACER PRESENT, STATES IF SHE HOLDS PRESSURE ON HER SPACER THE PAIN SUBSIDES, WHEN SHE RELEASES THE PAIN BECOMES 10/10 ON PAIN SCALE. History of Present Illness Date Seen by Provider: Apr 26, 2021 Time Seen by Provider: 18:10 Initial Comments 35-year-old -[place] female presents for rectal bleeding noted in her stools today. She has no previous history of GI bleeding. She has had a colonoscopy in the past which showed no abnormalities. She is BRCA 1 positive, she has had double mastectomy and currently has spacers in place. she has been having discomfort in the right chest wall, she puts pressure on the spacers and not assist with the pain.. Her last fill was in August 2020. She is followed at [facility] through the breast surgery and oncology department. She is taking Tylenol 1000 mg every 8-12 hours as needed for pain which controls her symptoms. She denies any recent falls or injuries. No other complaints at this time. She is not scheduled to see her specialist at until the of this month. Timing/Duration: Intermittent Severity: Moderate Associated Systoms: Denies Symptoms Allergies and Home Medications Allergies Coded Allergies: aprepitant (Verified Allergy, Severe, 05/14/20) PATIENT STATES COULD NOT BREATH fosaprepitant (Verified Allergy, Severe, 05/14/20) PATIENT STATES COULD NOT BREATH latex (Verified Allergy, Severe, BLISTERS, 08/24/17) penicillin (Verified Allergy, Severe, ITCHING, 08/24/17) Sulfa (Sulfonamide Antibiotics) (Verified Allergy, Unknown, RASH, 08/24/17) Uncoded Allergies: STAWBERRIES (Allergy, Mild, RASH, 09/04/20) Patient Home Medication List Home Medication List Reviewed: Yes Acetaminophen (Tylenol Extra Strength) 500 Mg Tablet, 500-1,000 MG PO Q6H PRN for PAIN-MILD (1-4), (Reported) Entered as Reported by: ZHOU WRIGHT on 07/21/20 1215 Aspirin/Acetaminophen/Caffeine (Excedrin Migraine Caplet) 1 Each Tablet, 2 EACH PO Q6-8HR PRN for Headache, (Reported) Entered as Reported by: ZHOU WRIGHT on 07/21/20 121 Calcium Carbonate (Tums Ultra) 400 Mg Tab.chew, 400-800 MG PO Q6H PRN for INDIGESTION, (Reported) Entered as Reported by: ZHOU WRIGHT on 07/21/20 121 Cetirizine HCl (Zyrtec) 10 Mg Tablet, 10 MG PO DAILY PRN for ALLERGY SYMPTOMS, (Reported) Entered as Reported by: ZHOU WRIGHT on 07/21/20 121 Cholecalciferol (Vitamin D3) (Vitamin D3) 1,250 Mcg Capsule, 1,250 MCG PO FRI, (Reported) Entered as Reported by: ZHOU WRIGHT on 01/08/21 153 Cyclosporine (Restasis) 1 Each Droperette, 1 DROP OU BID, (Reported) Entered as Reported by: ZHOU WRIGHT on 07/21/20 121 Gabapentin (Neurontin) 300 Mg Capsule, 300 MG PO HS PRN for PAIN-BREAKTHROUGH, (Reported) Entered as Reported by: ZHOU WRIGHT on 01/08/21 153 Lurasidone HCl (Latuda) 80 Mg Tablet, 80 MG PO 1800 W/MEAL, (Reported) Entered as Reported by: ZHOU WRIGHT on 09/04/20 104 Metoprolol Succinate (Metoprolol Succinate) 50 Mg Tab.er.24h, 50 MG PO BID, (Reported) Entered as Reported by: ZHOU WRIGHT on 09/04/20 104 Ondansetron HCl (Ondansetron HCl) 8 Mg Tablet, 8 MG PO Q8H PRN for NAUSEA/VOMITING-1ST LINE, (Reported) Entered as Reported by: ZHOU WRIGHT on 07/21/20 121 Pantoprazole Sodium (Pantoprazole Sodium) 40 Mg Tablet.dr, 40 MG PO BID, (Reported) Entered as Reported by: ZHOU WRIGHT on 07/21/20 121 Sorbitol Solution (Sorbitol) 1 Ml Solution, 15-30 ML PO TID PRN for CONSTIPATION, (Reported) Entered as Reported by: ZHOU WRIGHT on 07/21/20 121 Sucralfate (Sucralfate) 1 Gm Tablet, 1 GM PO QID PRN for ULCERS, (Reported) Entered as Reported by: ZHOU WRIGHT on 07/21/20 1215 Tizanidine HCl (Tizanidine HCl) 2 Mg Tablet, 2 MG PO BID PRN for MUSCLE SPASMS, (Reported) Entered as Reported by: ZHOU WRIGHT on 01/08/21 1534 Review of Systems Review of Systems Constitutional: no symptoms reported, see HPI; No fever, No malaise EENTM: see HPI, no symptoms reported Respiratory: no symptoms reported, see HPI Cardiovascular: no symptoms reported, see HPI Gastrointestinal: see HPI; No nausea, No vomiting; other (Hemorrhoids and rectal bleeding with bowel movement) Genitourinary: no symptoms reported, see HPI : No Musculoskeletal: no symptoms reported, see HPI Skin: no symptoms reported, see HPI; No rash All Other Systems Reviewed Negative Unless Noted: Yes Past Klqarvq-Ylixxe-Irbaiu Hx Patient Social History Tobacco Use?: No Use of E-Cig and/or Vaping dev: No Substance use?: No Alcohol Use?: No Pt feels they are or have been: No Immunizations Up To Date Tetanus Booster (TDap): Less than 5yrs PED Vaccines UTD: Yes Influenza Vaccine Up-to-Date: Yes; Up-to-Date First/Initial COVID19 Vaccinat: July 2020 Second COVID19 Vaccination Gunner: August 2020 COVID19 Vaccine 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: FERNANDEZ Seasonal Allergies Seasonal Allergies: No Past Medical History Surgery/Hospitalization HX: Sepsis/SVT/UTI- Hospitalization, BILATERAL MASECTOMY, RIB SPACERS D/T MASSECTOMY Surgeries: Yes (Loop Recorder, R PAC, BILAT MASTECTOMY 04/01/21) Cardiac, Orthopedic, 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, Vascular Surgery Respiratory: No Asthma Currently Using CPAP: No Currently Using BIPAP: No Cardiac: Yes (PFO, SVT) Congenital Heart Disease, Deep Vein Thrombosis, High Cholesterol, Palpitations Neurological: Yes Seizure Disorder, Stroke : No 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 Disorders: Yes (MENORRHAGIA) Female 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 History: 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 Sexually Transmitted Disease: No HIV/AIDS: No Genitourinary: Yes Kidney Stones, UTI-Chronic Gastrointestinal: Yes Irritable Bowel Musculoskeletal: Yes Degenerate Disk Disease, Foot Drop, Scoliosis, Chronic Back Pain, Fractures Endocrine: No (STATES CHEMO HAS AFFECTED BLOOD SUGAR) Diabetes, Non-Insulin dep HEENT: No Loss of Vision: Bilateral Hearing Impairment: Denies Cancer: Yes Breast Did You Recieve Any Treatments: Yes What Type of Treatment Did You: Chemotherapy, Surgical Intervention Psychosocial: Yes (D.I.D.) Anxiety, PTSD, Bipolar Integumentary: No Herpes Blood Disorders: Yes (HX OF HYPERCOLAGUABLE STATE) Adverse Reaction/Blood Tranf: No (N/A) Family Medical History Reviewed and Corrections made Antiphospholipid syndrome 19 MOTHER Diabetes mellitus 19 FATHER G8 BROTHER FH: aneurysm 19 FATHER FH: lupus 19 MOTHER FHx: congestive heart failure 19 FATHER FHx: renal failure 19 MOTHER Heart murmur 19 MOTHER Lupus anticoagulant disorder 19 MOTHER Patent foramen ovale 19 FATHER Barry syndrome G8 SISTER Physical Exam Vital Signs Vital Signs - First Documented 04/26/21 18:10 Temp 35.9 Pulse 95 Resp 18 B/P (MAP) 149/98 (115) Pulse Ox 98 O2 Delivery Room Air Capillary Refill : Less Than 3 Seconds Height, Weight, BMI Height: 5'4.00" Weight: 189lbs. 9.0oz. [id number]; 48.00 BMI Method:Stated General Appearance: No Apparent Distress, WD/WN HEENT: PERRL/EOMI, TMs Normal, Normal ENT Inspection, Pharynx Normal Neck: Full Range of Motion, Normal Inspection, Non Tender Respiratory: Lungs Clear, Normal Breath Sounds, No Accessory Muscle Use Cardiovascular: Regular Rate, Rhythm, No Edema, No Murmur, Normal Peripheral Pulses Gastrointestinal: Normal Bowel Sounds, Non Tender, Soft Rectal: Normal Exam, Normal Rectal Tone, Heme Negative Stool, Hemorrhoids (Small external no active bleeding) Genital/Rectal: Normal Rectal Tone, Tenderness, Other (trace rectal bleeding from external hemrrhoid ) Extremity: Normal Capillary Refill, Normal Inspection, Normal Range of Motion, Non Tender, No Calf Tenderness Neurologic/Psychiatric: Alert, Oriented x3, No Motor/Sensory Deficits, Normal M ood/Affect Skin: Normal Color, Warm/Dry Comments Right chest wall and breast thoroughly examined. No skin irritation, erythema, drainage, or ulcers noted. Spacers in place, no specific areas of tenderness to palpation. Progress/Results/Core Measures Suspected Sepsis SIRS Temperature: Pulse: 95 Respiratory Rate: 18 Laboratory Tests 04/26/21 18:55: White Blood Count 8.0 Blood Pressure 149 /98 Mean: 115 Laboratory Tests 04/26/21 18:55: Platelet Count 400 Results/Orders Lab Results Laboratory Tests Test 04/26/21 18:48 04/26/21 18:55 Range/Units Urine Color YELLOW Urine Clarity CLEAR Urine pH 5.5 5-9 Urine Specific [place] <=1.005 1.016-1.022 Urine Protein NEGATIVE NEGATIVE Urine Glucose (UA) NEGATIVE NEGATIVE Urine Ketones NEGATIVE NEGATIVE Urine Nitrite NEGATIVE NEGATIVE Urine Bilirubin NEGATIVE NEGATIVE Urine Urobilinogen 0.2 < = 1.0 MG/DL Urine Leukocyte Esterase NEGATIVE NEGATIVE Urine RBC (Auto) NEGATIVE NEGATIVE Urine RBC NONE /HPF Urine WBC NONE /HPF Urine Squamous Epithelial Cells RARE /HPF Urine Crystals NONE /LPF Urine Bacteria NEGATIVE /HPF Urine Casts NONE /LPF Urine Mucus NEGATIVE /LPF Urine Culture Indicated NO White Blood Count 8.0 4.3-11.0 10^3/uL Red Blood Count 4.64 3.80-5.11 10^6/uL Hemoglobin 12.0 11.5-16.0 g/dL Hematocrit 38 35-52 % Mean Corpuscular Volume 81 80-99 fL Mean Corpuscular Hemoglobin 26 25-34 pg Mean Corpuscular Hemoglobin Concent 32 32-36 g/dL Red Cell Distribution Width 18.1 H 10.0-14.5 % Platelet Count 400 130-400 10^3/uL Mean Platelet Volume 9.7 9.0-12.2 fL Immature Granulocyte % (Auto) 0 % Neutrophils (%) (Auto) 84 H 42-75 % Lymphocytes (%) (Auto) 14 12-44 % Monocytes (%) (Auto) 2 0-12 % Eosinophils (%) (Auto) 0 0-10 % Basophils (%) (Auto) 0 0-10 % Neutrophils # (Auto) 6.7 1.8-7.8 10^3/uL Lymphocytes # (Auto) 1.1 1.0-4.0 10^3/uL Monocytes # (Auto) 0.1 0.0-1.0 10^3/uL Eosinophils # (Auto) 0.0 0.0-0.3 10^3/uL Basophils # (Auto) 0.0 0.0-0.1 10^3/uL Immature Granulocyte # (Auto) 0.0 0.0-0.1 10^3/uL My Orders Orders - PERICO CLAYTON Acetaminophen Tablet (Tylenol Tablet) (04/26/21 19:46) Vital Signs/I&O 04/26/21 04/26/21 18:10 20:09 Temp 35.9 35.9 Pulse 95 84 Resp 18 18 B/P (MAP) 149/98 (115) 138/95 Pulse Ox 98 100 O2 Delivery Room Air Room Air Capillary Refill : Less Than 3 Seconds Blood Pressure Mean: 115 Progress Note : Time: 18:10 Progress Note Patient seen and evaluated, reassured her there are no signs of skin irritation or breakdown. Stressed the importance to follow-up with her breast surgeon, columnist/commentator and reconstructive surgeon for her symptoms. She was given Tylenol 1000 mg for pain. Encouraged to use [id number] medications for the hemorrhoids. Discharge instructions and return precautions reviewed with her. All questions answered. Departure Impression Primary Impression: Rectal bleed Additional Impressions: External bleeding hemorrhoids Breast pain in female Pain from breast implant Qualified Codes: T85.848A - Pain due to other internal prosthetic devices, implants and grafts, initial encounter History of breast cancer in adulthood Disposition: 01 HOME, SELF-CARE Condition: Stable Departure-Patient Inst. Decision time for Depature: 19:40 Referrals: [facility] [place] (PCP) Primary Care Physician RIDGE SUE APRN (Family) Primary Care Physician Patient Instructions: Hemorrhoids (DC), Bloody Stools, Adult (DC), Mastalgia (DC) Add. Discharge Instructions: Continue to alternate Tylenol 1,000 mg with Motrin 600 mg every 4 hours for pain. Schedule follow-up appointments with your breast surgeon and columnist/commentator at [facility]. Send the [employer] messages to get in this week. You can use Tucks pads and Preparation H for the hemorrhoids. Sitz baths or warm washcloths to rectum will help with hemorrhoids. Return to the emergency department for new, urgent healthcare problems. All discharge instructions reviewed with patient and/or family. Voiced understanding. PERICO CLAYTON Apr 26, 2021 19:55
[2021-04-26 20:09] VITALS: BP 138/95
== END 2021-04-26 20:09 | disposition home or self-care (01) ==
LOC: EDUNIT# 17:49 → ER 17:50
DX: K62.5 Hemorrhage of anus and rectum (principal); K64.4 Residual hemorrhoidal skin tags; N64.4 Mastodynia; T85.848A Pain due to other internal prosthetic devices, implants and grafts, initial encounter; J45.909 Unspecified asthma, uncomplicated; F31.9 Bipolar disorder, unspecified; F41.9 Anxiety disorder, unspecified; E11.9 Type 2 diabetes mellitus without complications; G40.909 Epilepsy, unspecified, not intractable, without status epilepticus; Z86.73 Personal history of transient ischemic attack (TIA), and cerebral infarction without residual deficits; Z79.82 Long term (current) use of aspirin; Z79.899 Other long term (current) drug therapy; Z91.040 Latex allergy status
CPT/HCPCS: 36415; 81000; 84703; 85025

== ENCOUNTER 2021-05-08 01:00 | Emergency (ER) | payer MEDICARE, MEDICAID ==
[~2021-05-08] VITALS: Ht 155 cm; Wt 111.8 kg
[2021-05-08 01:20] VITALS: BP 131/96
[2021-05-08] MEDS ORDERED: ACHD5005 PO ×2 (06:38→06:43)
== END 2021-05-08 02:52 | disposition left against medical advice (07) ==
LOC: EDUNIT# 01:00 → ER 01:03
DX: R07.89 Other chest pain (principal)
CPT/HCPCS: 99281

== ENCOUNTER 2021-05-08 02:56 | Emergency (ER) | payer MEDICARE, MEDICAID ==
[~2021-05-08] VITALS: Ht 155 cm; Wt 111.8 kg
[2021-05-08] MEDS ORDERED: morphine INJ 10 MG/ML 1ML (SYR OR VIAL) IVP STA (03:28)
[2021-05-08 04:10] LABS: BASOPHILS % (AUTO) 0 % (0-10); EOSINOPHILS % (AUTO) 0 % (0-10); HEMATOCRIT 35 % (35-52); LYMPHOCYTES # (AUTO) 3.9 10^3/uL (1.0-4.0); LYMPHOCYTES % (AUTO) 41 % (12-44); MEAN CORPUSCULAR HEMOGLOBIN 26 pg (25-34); MEAN CORPUSCULAR HGB CONC 32 g/dL (32-36); MEAN CORPUSCULAR VOLUME 81 fL (80-99); MEAN PLATELET VOLUME 9.4 fL (9.0-12.2); MONOCYTES # (AUTO) 0.5 10^3/uL (0.0-1.0); MONOCYTES % (AUTO) 5 % (0-12); NEUTROPHILS % (AUTO) 53 % (42-75); PLATELET COUNT 390 10^3/uL (130-400); WHITE BLOOD COUNT 9.5 10^3/uL (4.3-11.0)
[2021-05-08 04:21] LABS: POTASSIUM 3.8 MMOL/L (3.6-5.0)
[2021-05-08 04:22] LABS: CALCIUM 9.2 MG/DL (8.5-10.1)
[2021-05-08 04:25] LABS: BILIRUBIN,TOTAL 0.4 MG/DL (0.1-1.0)
[2021-05-08 04:27] LABS: CREATININE SERUM 0.68 MG/DL (0.60-1.30)
--- NOTE | 2021-05-08 05:26 | ED General ---
General Chief Complaint: Chest Wall Stated Complaint: RT SIDE BREAST PAIN Nursing Triage Note: INTERMITTANT RIGHT SIDED RIB PAIN X1 MONTH GETTING PROGRESSIVELY WORSE. SEEN BY DR ARAUZ ON 04/21/21 FOR SAME. Source of Information: Patient Exam Limitations: No Limitations History of Present Illness Date Seen by Provider: May 08, 2021 Time Seen by Provider: 03:07 Initial Comments This 35-year-old young lady presents to the emergency room with complaints of right-sided chest wall pain that radiates up into the axilla. She has a history of right-sided breast cancer for which she had a double mastectomy. She currently has breast spacers in and is awaiting cosmetic surgery for reconstruction. Pain in the right chest wall has been worsening over the past month. She spoke with the on-call provider from her oncology team. She was advised to present to the ER because of escalating pain. Her providers are Dr. Arauz for oncology in [place] and Dr. Phan and Dr. Neely at [facility]. No fever, chills, cough or SOA. She does have some pain with inspiration and movement. Allergies and Home Medications Allergies Coded Allergies: aprepitant (Verified Allergy, Severe, 05/14/20) PATIENT STATES COULD NOT BREATH fosaprepitant (Verified Allergy, Severe, 05/14/20) PATIENT STATES COULD NOT BREATH latex (Verified Allergy, Severe, BLISTERS, 08/24/17) penicillin (Verified Allergy, Severe, ITCHING, 08/24/17) Sulfa (Sulfonamide Antibiotics) (Verified Allergy, Unknown, RASH, 08/24/17) Uncoded Allergies: STAWBERRIES (Allergy, Mild, RASH, 09/04/20) Patient Home Medication List Home Medication List Reviewed: Yes Acetaminophen (Tylenol Extra Strength) 500 Mg Tablet, 500-1,000 MG PO Q6H PRN for PAIN-MILD (1-4), (Reported) Entered as Reported by: ZHOU WRIGHT on 07/21/20 1215 Aspirin/Acetaminophen/Caffeine (Excedrin Migraine Caplet) 1 Each Tablet, 2 EACH PO Q6-8HR PRN for Headache, (Reported) Entered as Reported by: ZHOU WRIGHT on 07/21/20 1215 Calcium Carbonate (Tums Ultra) 400 Mg Tab.chew, 400-800 MG PO Q6H PRN for INDIGESTION, (Reported) Entered as Reported by: ZHOU WRIGHT on 07/21/20 121 Cetirizine HCl (Zyrtec) 10 Mg Tablet, 10 MG PO DAILY PRN for ALLERGY SYMPTOMS, (Reported) Entered as Reported by: ZHOU WRIGHT on 07/21/20 121 Cholecalciferol (Vitamin D3) (Vitamin D3) 1,250 Mcg Capsule, 1,250 MCG PO FRI, (Reported) Entered as Reported by: ZHOU WRIGHT on 01/08/21 153 Cyclosporine (Restasis) 1 Each Droperette, 1 DROP OU BID, (Reported) Entered as Reported by: ZHOU WRIGHT on 07/21/20 121 Gabapentin (Neurontin) 300 Mg Capsule, 300 MG PO HS PRN for PAIN-BREAKTHROUGH, (Reported) Entered as Reported by: ZHOU WRIGHT on 01/08/21 153 Hydrocodone Bit/Acetaminophen (HYDROcodone/APAP 5 MG/325 MG TAB) 1 Tab Tab, 1-2 TAB PO Q4H PRN for PAIN-MODERATE (5-7) Prescribed by: VALERIA GUILLERMO on 05/08/21 0644 Last Action: New Order Lurasidone HCl (Latuda) 80 Mg Tablet, 80 MG PO 1800 W/MEAL, (Reported) Entered as Reported by: ZHOU WRIGHT on 09/04/20 104 Metoprolol Succinate (Metoprolol Succinate) 50 Mg Tab.er.24h, 50 MG PO BID, (Reported) Entered as Reported by: ZHOU WRIGHT on 09/04/20 104 Ondansetron HCl (Ondansetron HCl) 8 Mg Tablet, 8 MG PO Q8H PRN for NAUSEA/VOMITING-1ST LINE, (Reported) Entered as Reported by: ZHOU WRIGHT on 07/21/20 121 Pantoprazole Sodium (Pantoprazole Sodium) 40 Mg Tablet.dr, 40 MG PO BID, (Reported) Entered as Reported by: ZHOU WRIGHT on 07/21/20 121 Sorbitol Solution (Sorbitol) 1 Ml Solution, 15-30 ML PO TID PRN for CONSTIPATION, (Reported) Entered as Reported by: ZHOU WRIGHT on 07/21/20 121 Sucralfate (Sucralfate) 1 Gm Tablet, 1 GM PO QID PRN for ULCERS, (Reported) Entered as Reported by: ZHOU WRIGHT on 07/21/20 1215 Tizanidine HCl (Tizanidine HCl) 2 Mg Tablet, 2 MG PO BID PRN for MUSCLE SPASMS, (Reported) Entered as Reported by: ZHOU WRIGHT on 01/08/21 1534 Review of Systems Review of Systems Constitutional: no symptoms reported EENTM: no symptoms reported Respiratory: see HPI Cardiovascular: no symptoms reported Gastrointestinal: no symptoms reported Genitourinary: no symptoms reported Musculoskeletal: see HPI Skin: no symptoms reported Psychiatric/Neurological: No Symptoms Reported Hematologic/Lymphatic: See HPI Immunological/Allergic: no symptoms reported Past Gdecwlx-Yoiczf-Muiref Hx Patient Social History Tobacco Use?: No Substance use?: No Alcohol Use?: No Pt feels they are or have been: No Immunizations Up To Date Tetanus Booster (TDap): Less than 5yrs PED Vaccines UTD: Yes First/Initial COVID19 Vaccinat: July 2020 Second COVID19 Vaccination Gunner: August 2020 COVID19 Vaccine Size Marker: Reapplix Seasonal Allergies Seasonal Allergies: No Past Medical History Surgery/Hospitalization HX: Sepsis/SVT/UTI- Hospitalization, BILATERAL MASECTOMY, RIB SPACERS D/T MASSECTOMY Surgeries: Yes (Loop Recorder, R PAC, BILAT MASTECTOMY 04/01/21) Breast (bilateral mastectomy with spacers), Cardiac, Orthopedic, 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, Vascular Surgery (IVC filter placement and removal) Respiratory: No Asthma Currently Using CPAP: No Currently Using BIPAP: No Cardiac: Yes (PFO, SVT) Congenital Heart Disease, Deep Vein Thrombosis, High Cholesterol, Palpitations Neurological: Yes Seizure Disorder, Stroke 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 Disorders: Yes (MENORRHAGIA) Female 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: 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 Sexually Transmitted Disease: No HIV/AIDS: No Genitourinary: Yes Kidney Stones, UTI-Chronic Gastrointestinal: Yes Irritable Bowel Musculoskeletal: Yes Degenerate Disk Disease, Foot Drop, Scoliosis, Chronic Back Pain, Fractures Endocrine: No (STATES CHEMO HAS AFFECTED BLOOD SUGAR) Diabetes, Non-Insulin dep HEENT: No Loss of Vision: Bilateral Hearing Impairment: Denies Cancer: Yes Breast Did You Recieve Any Treatments: Yes What Type of Treatment Did You: Chemotherapy, Surgical Intervention Psychosocial: Yes (D.I.D.) Anxiety, PTSD, Bipolar Integumentary: No Herpes Blood Disorders: Yes (HX OF HYPERCOLAGUABLE STATE) Adverse Reaction/Blood Tranf: No (N/A) Family Medical History Antiphospholipid syndrome 19 MOTHER Diabetes mellitus 19 FATHER G8 BROTHER FH: aneurysm 19 FATHER FH: lupus 19 MOTHER FHx: congestive heart failure 19 FATHER FHx: renal failure 19 MOTHER Heart murmur 19 MOTHER Lupus anticoagulant disorder 19 MOTHER Patent foramen ovale 19 FATHER Barry syndrome G8 SISTER Physical Exam Vital Signs Vital Signs - First Documented 05/08/21 03:01 Temp 36.8 Pulse 94 Resp 18 B/P (MAP) 140/93 (109) Pulse Ox 96 O2 Delivery Room Air Capillary Refill : Less Than 3 Seconds Height, Weight, BMI Height: 5'4.00" Weight: 189lbs. 9.0oz. [id number]; 46.00 BMI Method:Stated General Appearance: WD/WN, Anxious (tearful, emotional) HEENT: PERRL/EOMI, Normal ENT Inspection Neck: Normal Inspection Respiratory: Lungs Clear, Normal Breath Sounds, No Accessory Muscle Use, No Respiratory Distress, Other (tenderness at the inferior aspect of the right breast spacer and extending up toward the axilla) Cardiovascular: Regular Rate, Rhythm, No Edema, No Murmur Gastrointestinal: Normal Bowel Sounds, Non Tender, Soft; No Distended Extremity: Normal Inspection, Non Tender, No Pedal Edema Neurologic/Psychiatric: Alert, Oriented x3, No Motor/Sensory Deficits, volleyball referee II- XII Norm as Tested, Other (emotionally distressed) Skin: Normal Color, Warm/Dry; No Rash Lymphatic: No Adenopathy; No Axilla Node Tender (R) Progress/Results/Core Measures Suspected Sepsis SIRS Temperature: Pulse: 94 Respiratory Rate: 18 Laboratory Tests 05/08/21 04:00: White Blood Count 9.5 Blood Pressure 140 /93 Mean: 109 Laboratory Tests 05/08/21 04:00: Creatinine 0.68, Platelet Count 390, Total Bilirubin 0.4 Results/Orders Lab Results Laboratory Tests Test 05/08/21 04:00 Range/Units White Blood Count 9.5 4.3-11.0 10^3/uL Red Blood Count 4.26 3.80-5.11 10^6/uL Hemoglobin 11.0 L 11.5-16.0 g/dL Hematocrit 35 35-52 % Mean Corpuscular Volume 81 80-99 fL Mean Corpuscular Hemoglobin 26 25-34 pg Mean Corpuscular Hemoglobin Concent 32 32-36 g/dL Red Cell Distribution Width 18.5 H 10.0-14.5 % Platelet Count 390 130-400 10^3/uL Mean Platelet Volume 9.4 9.0-12.2 fL Immature Granulocyte % (Auto) 0 % Neutrophils (%) (Auto) 53 42-75 % Lymphocytes (%) (Auto) 41 12-44 % Monocytes (%) (Auto) 5 0-12 % Eosinophils (%) (Auto) 0 0-10 % Basophils (%) (Auto) 0 0-10 % Neutrophils # (Auto) 5.0 1.8-7.8 10^3/uL Lymphocytes # (Auto) 3.9 1.0-4.0 10^3/uL Monocytes # (Auto) 0.5 0.0-1.0 10^3/uL Eosinophils # (Auto) 0.0 0.0-0.3 10^3/uL Basophils # (Auto) 0.0 0.0-0.1 10^3/uL Immature Granulocyte # (Auto) 0.0 0.0-0.1 10^3/uL D-Dimer < 0.27 0.00-0.49 UG/ML Sodium Level 136 135-145 MMOL/L Potassium Level 3.8 3.6-5.0 MMOL/L Chloride Level 107 98-107 MMOL/L Carbon Dioxide Level 18 L 21-32 MMOL/L Anion Gap 11 5-14 MMOL/L Blood Urea Nitrogen 5 L 7-18 MG/DL Creatinine 0.68 0.60-1.30 MG/DL Estimat Glomerular Filtration Rate 116 BUN/Creatinine Ratio 7 Glucose Level 111 H 70-105 MG/DL Calcium Level 9.2 8.5-10.1 MG/DL Corrected Calcium 9.2 8.5-10.1 MG/DL Total Bilirubin 0.4 0.1-1.0 MG/DL Aspartate Amino Transf (AST/SGOT) 12 5-34 U/L Alanine Aminotransferase (ALT/SGPT) 11 0-55 U/L Alkaline Phosphatase 38 L 40-136 U/L C-Reactive Protein High Sensitivity 2.07 H 0.00-0.50 MG/DL Total Protein 7.0 6.4-8.2 GM/DL Albumin 4.0 3.2-4.5 GM/DL Serum Test, Qualitative NEGATIVE NEGATIVE My Orders Orders - MARIA ELENA MORA MD Implanted Port: Access (05/08/21 03:28) Morphine Injection (Morphine Injection (05/08/21 03:28) Cbc With Automated Diff (05/08/21 03:28) Comprehensive Metabolic Panel (05/08/21 03:28) Hs C Reactive Protein (05/08/21 03:28) Fibrin Degradation Products (05/08/21 03:28) Hcg,Qualitative Serum (05/08/21 03:28) Ct Chest W (05/08/21 04:46) Iohexol Injection (Omnipaque 350 Mg/Ml 1 (05/08/21 05:45) Received Contrast (Hold Metformin- Contr (05/08/21 05:45) Sodium Chloride Flush (Catheter Flush Sy (05/08/21 05:45) Ns (Ivpb) (Sodium Chloride 0.9% Ivpb Bag (05/08/21 05:45) Ketorolac Injection (Toradol Injection) (05/08/21 06:30) Hydrocodone/Apap 5/325 Tablet (Lortab 5 (05/08/21 06:30) Medications Given in ED Vital Signs/I&O 05/08/21 05/08/21 03:01 06:48 Temp 36.8 36.4 Pulse 94 75 Resp 18 16 B/P (MAP) 140/93 (109) 146/93 Pulse Ox 96 100 O2 Delivery Room Air Room Air Capillary Refill : Less Than 3 Seconds Blood Pressure Mean: 109 Progress Note : Progress Note Pain was treated with morphine and toradol, and later with hydrocodone. Work-up with labs and CT was unremarkable. Patient provided with reassurance and advised to follow-up with her surgical specialists. Diagnostic Imaging Diagonstic Imaging: CT Plain Films/CT/US/NM/MRI: chest Comments CT viewed by me an report reviewed. See report below: NAME: COLTON ORTIZ MED REC#: [id number] PT STATUS: REG ER : 1985 PHYSICIAN: MARIA ELENA MORA MD ADMIT DATE: 05/08/21/ER Signed Date of Exam:05/08/21 CT CHEST W PROCEDURE: CT chest with contrast only. TECHNIQUE: Multiple contiguous axial images were obtained through the chest after administration of intravenous contrast. Auto Exposure Controls were utilized during the CT exam to meet ALARA standards for radiation dose reduction. INDICATION: Right chest wall pain Lungs are clear. Patient has bilateral breast implants. There are no effusions or pneumothoraces. There is no hilar or mediastinal lymph adenopathy. Aorta appears normal. There are no pulmonary emboli. There is no evidence of right ventricular strain. IMPRESSION: Negative CTA chest Dictated by: Dictated on workstation # [id number] Dict: 05/08/2143 Trans: 05/08/2145 TCB [id number] Interpreted by: VALERIA MATTHEWS MD Electronically signed by: VALERIA MATTHEWS MD 05/08/21544 Departure Impression Primary Impression: Chest wall pain Disposition: HOME, SELF-CARE Condition: Improved Departure-Patient Inst. Decision time for Depature: 06:20 Referrals: [facility] [place] (PCP) Primary Care Physician RIDGE SUE APRN (Family) Primary Care Physician Patient Instructions: Chest Pain That Is Not Caused by the Heart (DC) Add. Discharge Instructions: For more mild pain you may take ibuprofen up to 600 mg every 6 hours as needed. You may add Tylenol (acetaminophen) up to 1000 mg every 6 hours as needed for additional pain relief. If your pain is more severe, add hydrocodone/acetaminophen instead of the Tylenol. Follow-up with your breast surgeon as soon as possible for further instruction. Call with questions or concerns. Return to the ER if you have worsening symptoms. All discharge instructions reviewed with patient and/or family. Voiced understanding. Scripts Hydrocodone Bit/Acetaminophen (HYDROcodone/APAP 5 MG/325 MG TAB) 1 Tab Tab 1-2 TAB PO Q4H PRN for PAIN-MODERATE (5-7), #20 TAB 0 Refills Prov: VALERIA GUILLERMO MD 05/08/21 Copy Copies To 1: CORI PATRICIA Copies To 2: ALONSO DUNN MD, JOSHUA T MD May 08, 2021 05:26
[2021-05-08] MEDS ORDERED: CATHETER FLUSH 10 ML SYR IV PRN (05:45)
[2021-05-08] MEDS ORDERED: NS 100 ML (IVPB) BAG IV ONE (05:45)
[2021-05-08] MEDS ORDERED: HOLD METFORMIN - RECEIVED CONTRAST 20 ML VIAL IV SCH (05:45)
[2021-05-08] MEDS ORDERED: IOHEXOL 350 MG/ML 100 ML (OMNIPAQUE 350) VIAL IV ONE (05:45)
--- NOTE | 2021-05-08 05:46 | Diagnostic Imaging Report ---
PROCEDURE: CT chest with contrast only. TECHNIQUE: Multiple contiguous axial images were obtained through the chest after administration of intravenous contrast. Auto Exposure Controls were utilized during the CT exam to meet ALARA standards for radiation dose reduction. INDICATION: Right chest wall pain Lungs are clear. Patient has bilateral breast implants. There are no effusions or pneumothoraces. There is no hilar or mediastinal lymph adenopathy. Aorta appears normal. There are no pulmonary emboli. There is no evidence of right ventricular strain. IMPRESSION: Negative CTA chest Dictated by: Dictated on workstation # [id number]
[2021-05-08] MEDS ORDERED: KETOROLAC 30 MG/ML VIAL IVP ONE (06:30)
[2021-05-08] MEDS ORDERED: HYDROcodone/APAP 5 MG/325 MG (LORTAB) TAB PO ONE (06:30)
[2021-05-08] MEDS ORDERED: ACHD5005 PO ×2 (06:38→06:43)
[2021-05-08 06:48] VITALS: BP 146/93
== END 2021-05-08 06:51 | disposition home or self-care (01) ==
LOC: EDUNIT# 02:56 → ER 02:58
DX: R07.89 Other chest pain (principal); E11.9 Type 2 diabetes mellitus without complications; G40.909 Epilepsy, unspecified, not intractable, without status epilepticus; G89.29 Other chronic pain; M54.9 Dorsalgia, unspecified; F41.9 Anxiety disorder, unspecified; F31.9 Bipolar disorder, unspecified; Z79.82 Long term (current) use of aspirin; Z91.040 Latex allergy status; Z90.13 Acquired absence of bilateral breasts and nipples; Z98.82 Breast implant status; Z79.899 Other long term (current) drug therapy; Z32.02 Encounter for pregnancy test, result negative
CPT/HCPCS: 36415; 71260; 80053; 84703; 85025; 85379; 86141

== ENCOUNTER → 2021-05-11 | Outpatient (RCR) | payer MEDICARE, MEDICAID | END | disposition home or self-care (01) | LOC: ONC 11:15 | PROVIDERS: ATTEND Internal Medicine | DX: C50.411 Malignant neoplasm of upper-outer quadrant of right female breast (principal); E55.9 Vitamin D deficiency, unspecified; E11.9 Type 2 diabetes mellitus without complications; E78.5 Hyperlipidemia, unspecified; Z90.11 Acquired absence of right breast and nipple | CPT/HCPCS: 99213 ==

== ENCOUNTER 2021-06-15 12:20 | Outpatient (RCR) | payer MEDICARE, MEDICAID ==
[2021-06-15] MEDS ORDERED: ALTEPLASE 2 MG (CATHFLO) CANCER CENTER IV ONE (13:15)
[2021-06-15 13:55] LABS: BASOPHILS % (AUTO) 1 % (0-10); EOSINOPHILS % (AUTO) 0 % (0-10); HEMATOCRIT 36 % (35-52); HEMOGLOBIN 11.2 g/dL (11.5-16.0); LYMPHOCYTES # (AUTO) 3.3 10^3/uL (1.0-4.0); LYMPHOCYTES % (AUTO) 40 % (12-44); MEAN CORPUSCULAR HEMOGLOBIN 27 pg (25-34); MEAN CORPUSCULAR HGB CONC 31 g/dL (32-36); MEAN CORPUSCULAR VOLUME 85 fL (80-99); MEAN PLATELET VOLUME 9.6 fL (9.0-12.2); MONOCYTES # (AUTO) 0.5 10^3/uL (0.0-1.0); MONOCYTES % (AUTO) 6 % (0-12); NEUTROPHILS # (AUTO) 4.3 10^3/uL (1.8-7.8); NEUTROPHILS % (AUTO) 53 % (42-75); PLATELET COUNT 368 10^3/uL (130-400); WHITE BLOOD COUNT 8.2 10^3/uL (4.3-11.0)
[2021-06-15 14:22] LABS: BILIRUBIN,TOTAL 0.4 MG/DL (0.1-1.0); CALCIUM 9.3 MG/DL (8.5-10.1); CREATININE SERUM 0.66 MG/DL (0.60-1.30); TOTAL PROTEIN 6.9 GM/DL (6.4-8.2)
== END 2021-07-09 | disposition home or self-care (01) ==
LOC: ONC 12:20
PROVIDERS: ATTEND Internal Medicine
DX: Z45.2 Encounter for adjustment and management of vascular access device (principal); C50.411 Malignant neoplasm of upper-outer quadrant of right female breast; E55.9 Vitamin D deficiency, unspecified; E11.9 Type 2 diabetes mellitus without complications; E78.5 Hyperlipidemia, unspecified; Z90.11 Acquired absence of right breast and nipple
CPT/HCPCS: 36591; 36593; 80053; 82306; 85025

== ENCOUNTER 2021-09-03 13:04 | Emergency (ER) | payer MEDICARE, MEDICAID ==
[~2021-09-03] VITALS: Ht 154 cm; Wt 101.0 kg
[~2021-09-03 13:04] MED LIST changes: -ASPI-789 PO; +ASPI1TAB23 PO
[2021-09-03] MEDS ORDERED: NS IV 1000 ML 1,000 ML IV STA (13:20)
--- NOTE | 2021-09-03 13:24 | ED Chest Pain ---
General Chief Complaint: Skin/Wound Problems Stated Complaint: POST DRAIN POSS INFECTED L SIDE Source: patient Exam Limitations: no limitations (HERBERT ARREDONDO) History of Present Illness Date Seen by Provider: September 03, 2021 Time Seen by Provider: 13:23 Initial Comments Patient is a 36-year-old female presents ED with left-sided chest pain. Pain has been ongoing since 17 August post surgery. Worsening pain over the past 4 days. Pain is described as a burning pain with intermittent sharp pain. This pain has progressively worsened over the past 24 hours. Rating pain to the left arm. She has a history of breast cancer. She had a bilateral mastectomy in 2019. She had tissue director of placement removed at [facility] on 17 August. She had two Michele Pathak drains placed. She noted yellowish drainage out of the left drain. She went to [facility] was placed on doxycycline on tuesday. They were concerned for infection around the drainage site t the time. She states she has been running a temperature as high as 101 at home. Has been taken Tylenol and ibuprofen. Afebrile here. No abdominal pain vomiting, diarrhea, shortness of breath. No known CAD history. History of PFO without issues or complications. (HERBERT ARREDONDO) Allergies and Home Medications Allergies Coded Allergies: aprepitant (Verified Allergy, Severe, 05/14/20) PATIENT STATES COULD NOT BREATH fosaprepitant (Verified Allergy, Severe, 05/14/20) PATIENT STATES COULD NOT BREATH latex (Verified Allergy, Severe, BLISTERS, 08/24/17) penicillin (Verified Allergy, Severe, ITCHING, 08/24/17) Sulfa (Sulfonamide Antibiotics) (Verified Allergy, Unknown, RASH, 08/24/17) Uncoded Allergies: STAWBERRIES (Allergy, Mild, RASH, 09/04/20) Patient Home Medication List Home Medication List Reviewed: Yes (HERBERT ARREDONDO) Acetaminophen (Tylenol Extra Strength) 500 Mg Tablet, 500-1,000 MG PO Q6H PRN for PAIN-MILD (1-4), (Reported) Entered as Reported by: ZHOU WRIGHT on 07/21/20 1215 Aspirin/Acetaminophen/Caffeine (Excedrin Migraine Caplet) 1 Each Tablet, 2 EACH PO Q6-8HR PRN for Headache, (Reported) Entered as Reported by: ZHOU WRIGHT on 07/21/20 1215 Calcium Carbonate (Tums Ultra) 400 Mg Tab.chew, 400-800 MG PO Q6H PRN for INDIGESTION, (Reported) Entered as Reported by: ZHOU WRIGHT on 07/21/20 1215 Cetirizine HCl (Zyrtec) 10 Mg Tablet, 10 MG PO DAILY PRN for ALLERGY SYMPTOMS, (Reported) Entered as Reported by: ZHOU WRIGHT on 07/21/20 1215 Cholecalciferol (Vitamin D3) (Vitamin D3) 1,250 Mcg Capsule, 1,250 MCG PO FRI, (Reported) Entered as Reported by: ZHOU WRIGHT on 01/08/21 1534 Cyclosporine (Restasis) 1 Each Droperette, 1 DROP OU BID, (Reported) Entered as Reported by: ZHOU WRIGHT on 07/21/20 121 Gabapentin (Neurontin) 300 Mg Capsule, 300 MG PO HS PRN for PAIN-BREAKTHROUGH, (Reported) Entered as Reported by: ZHOU WRIGHT on 01/08/21 1534 Hydrocodone Bit/Acetaminophen (HYDROcodone/APAP 5 MG/325 MG TAB) 1 Tab Tab, 1-2 TAB PO Q4H PRN for PAIN-MODERATE (5-7) Prescribed by: VALERIA GUILLERMO on 05/08/21 0644 Hydrocodone/Acetaminophen (Hydrocodone-Acetamin 5-325 mg) 5 Mg-325 Mg Tablet, 1 TAB PO Q4H PRN for PAIN-MODERATE (5-7) Prescribed by: JUAN POZO on 09/03/21 1549 Lurasidone HCl (Latuda) 80 Mg Tablet, 80 MG PO 1800 W/MEAL, (Reported) Entered as Reported by: ZHOU WRIGHT on 09/04/20 1047 Metoprolol Succinate (Metoprolol Succinate) 50 Mg Tab.er.24h, 50 MG PO BID, (Reported) Entered as Reported by: ZHOU WRIGHT on 09/04/20 1047 Ondansetron HCl (Ondansetron HCl) 8 Mg Tablet, 8 MG PO Q8H PRN for NAUSEA/VOMITING-1ST LINE, (Reported) Entered as Reported by: ZHOU WRIGHT on 07/21/20 1215 Pantoprazole Sodium (Pantoprazole Sodium) 40 Mg Tablet.dr, 40 MG PO BID, (Reported) Entered as Reported by: ZHOU WRIGHT on 07/21/20 121 Sorbitol Solution (Sorbitol) 1 Ml Solution, 15-30 ML PO TID PRN for CONSTIPATION, (Reported) Entered as Reported by: ZHOU WRIGHT on 07/21/20 121 Sucralfate (Sucralfate) 1 Gm Tablet, 1 GM PO QID PRN for ULCERS, (Reported) Entered as Reported by: ZHOU WRIGHT on 07/21/20 121 Tizanidine HCl (Tizanidine HCl) 2 Mg Tablet, 2 MG PO BID PRN for MUSCLE SPASMS, (Reported) Entered as Reported by: ZHOU WRIGHT on 01/08/21 1534 Review of Systems Review of Systems Constitutional: chills, fever, malaise, weakness EENTM: No Blurred Vision, No Double Vision, No Ear Pain, No Mouth Pain Respiratory: Denies Cough, Denies Shortness of Air Cardiovascular: Chest Pain; Denies Edema, Denies Irregular Heart Rate, Denies Lightheadedness Gastrointestinal: Abdominal Pain; Denies Diarrhea, Denies Nausea, Denies Vomiting Genitourinary: Denies Burning Musculoskeletal: No back pain, No joint pain Skin: change in color (HERBERT ARREDONDO) All Other Systems Reviewed Negative Unless Noted: Yes (HERBERT ARREDONDO) Past Iedjmjk-Wtjoxn-Tdwnnp Hx Patient Social History Tobacco Use?: Yes Tobacco type used: Cigarettes Smoking Status: Light Tobacco Smoker Use of E-Cig and/or Vaping dev: No Substance use?: No Alcohol Use?: No (HERBERT ARREDONDO) Immunizations Up To Date Tetanus Booster (TDap): Less than 5yrs PED Vaccines UTD: Yes First/Initial COVID19 Vaccinat: July 2020 Second COVID19 Vaccination Gunner: August 2020 Third COVID19 Vaccination Date: MAR 13 2021 (HERBERT ARREDONDO) Seasonal Allergies Seasonal Allergies: No (HERBERT ARREDONDO) Past Medical History Surgery/Hospitalization HX: Sepsis/SVT/UTI- Hospitalization, BILATERAL MASECTOMY, RIB SPACERS D/T MASSECTOMY. 08/17/21 cleaned extenders in both breasts at . 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 History: 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 Sexually Transmitted Disease: No HIV/AIDS: No Genitourinary: Yes Kidney Stones, UTI-Chronic Gastrointestinal: Yes Irritable Bowel Musculoskeletal: Yes Degenerate Disk Disease, Foot Drop, Scoliosis, Chronic Back Pain, Fractures Endocrine: No (STATES CHEMO HAS AFFECTED BLOOD SUGAR) Diabetes, Non-Insulin dep HEENT: No Loss of Vision: Bilateral Hearing Impairment: Denies Cancer: Yes Breast Did You Recieve Any Treatments: Yes What Type of Treatment Did You: Chemotherapy, Surgical Intervention Psychosocial: Yes (D.I.D.) Anxiety, PTSD, Bipolar Integumentary: No Herpes Blood Disorders: Yes (HX OF HYPERCOLAGUABLE STATE) Adverse Reaction/Blood Tranf: No (N/A) (HERBERT ARREDONDO) Family Medical History Antiphospholipid syndrome 19 MOTHER Diabetes mellitus 19 FATHER G8 BROTHER FH: aneurysm 19 FATHER FH: lupus 19 MOTHER FHx: congestive heart failure 19 FATHER FHx: renal failure 19 MOTHER Heart murmur 19 MOTHER Lupus anticoagulant disorder 19 MOTHER Patent foramen ovale 19 FATHER Barry syndrome G8 SISTER Physical Exam Vital Signs Vital Signs - First Documented 09/03/21 09/03/21 13:09 16:25 Temp 35.9 Pulse 111 Resp 18 B/P (MAP) 160/88 Pulse Ox 100 O2 Delivery Room Air (MARIA ELENA MORA MD) Vital Signs Capillary Refill : (HERBERT ARREDONDO) Height, Weight, BMI Height: 5'4.00" Weight: 189lbs. 9.0oz. 85.619228gp; 46.00 BMI Method:Stated General Appearance: No Apparent Distress, WD/WN HEENT: PERRL/EOMI, TMs Normal, Normal ENT Inspection, Pharynx Normal Neck: Full Range of Motion, Normal Inspection, Non Tender, Supple Respiratory: Chest Non Tender, Lungs Clear, Normal Breath Sounds, No Accessory Muscle Use, Other (Michele-Pathak drains bilateral upper chest brownish drainage. Tenderness left-sided chest. 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 Norm as Tested Skin: Normal Color, Warm/Dry (HERBERT ARREDONDO) Progress/Results/Core Measures Results/Orders Lab Results Laboratory Tests Test 09/03/21 13:55 Range/Units White Blood Count 9.3 4.3-11.0 10^3/uL Red Blood Count 3.92 3.80-5.11 10^6/uL Hemoglobin 10.5 L 11.5-16.0 g/dL Hematocrit 32 L 35-52 % Mean Corpuscular Volume 82 80-99 fL Mean Corpuscular Hemoglobin 27 25-34 pg Mean Corpuscular Hemoglobin Concent 33 32-36 g/dL Red Cell Distribution Width 13.6 10.0-14.5 % Platelet Count 360 130-400 10^3/uL Mean Platelet Volume 9.4 9.0-12.2 fL Immature Granulocyte % (Auto) 0 % Neutrophils (%) (Auto) 51 42-75 % Lymphocytes (%) (Auto) 42 12-44 % Monocytes (%) (Auto) 6 0-12 % Eosinophils (%) (Auto) 1 0-10 % Basophils (%) (Auto) 0 0-10 % Neutrophils # (Auto) 4.7 1.8-7.8 10^3/uL Lymphocytes # (Auto) 3.9 1.0-4.0 10^3/uL Monocytes # (Auto) 0.5 0.0-1.0 10^3/uL Eosinophils # (Auto) 0.1 0.0-0.3 10^3/uL Basophils # (Auto) 0.0 0.0-0.1 10^3/uL Immature Granulocyte # (Auto) 0.0 0.0-0.1 10^3/uL Sodium Level 137 135-145 MMOL/L Potassium Level 3.7 3.6-5.0 MMOL/L Chloride Level 105 98-107 MMOL/L Carbon Dioxide Level 22 21-32 MMOL/L Anion Gap 10 5-14 MMOL/L Blood Urea Nitrogen 6 L 7-18 MG/DL Creatinine 0.61 0.60-1.30 MG/DL Estimat Glomerular Filtration Rate 119 BUN/Creatinine Ratio 10 Glucose Level 96 70-105 MG/DL Calcium Level 9.2 8.5-10.1 MG/DL Corrected Calcium 9.4 8.5-10.1 MG/DL Magnesium Level 1.8 1.6-2.4 MG/DL Total Bilirubin 0.5 0.1-1.0 MG/DL Aspartate Amino Transf (AST/SGOT) 12 5-34 U/L Alanine Aminotransferase (ALT/SGPT) 11 0-55 U/L Alkaline Phosphatase 41 40-136 U/L Troponin I < 0.028 <0.028 NG/ML C-Reactive Protein High Sensitivity 2.15 H 0.00-0.50 MG/DL Total Protein 6.8 6.4-8.2 GM/DL Albumin 3.8 3.2-4.5 GM/DL (MARIA ELENA MORA MD) Medications Given in ED Current Medications Medications Dose Ordered Sig/Diomeeds Route Start Time Stop Time Status Last Admin Dose Admin Acetaminophen 1,000 mg ONCE ONCE PO 09/03/21 14:30 09/03/21 14:31 DC 09/03/21 15:10 1,000 MG Iohexol 100 ml ONCE ONCE IV 09/03/21 13:45 09/03/21 13:46 DC 09/03/21 14:40 100 ML (MARIA ELENA MORA MD) Vital Signs/I&O 09/03/21 09/03/21 13:09 16:25 Temp 35.9 35.9 Pulse 111 88 Resp 18 16 B/P (MAP) 160/88 Pulse Ox 100 100 O2 Delivery Room Air Room Air (MARIA ELENA MORA MD) Comment Sinus rhythm, possible left atrial enlargement, 90 bpm, QRS duration 94 MS, QTc 399 MS. (HERBERT ARREDONDO) Departure Communication (PCP) Patient presents ED with left-sided chest pain. She had tissue director of placement removed. She had 2 Michele-Pathak drains placed earlier this month. She has had this similar type pain but became worse over the past 4 days. Rating pain to the left arm. No known history of coronary artery disease. History of PFO without any issues or complications. EKG showed normal sinus rhythm 90 bpm. She had no evidence of rash. No surrounding redness or swelling near the drainage sites. Serous type fluid noted in the drainage site. Does not appear to be purulent. Normal white blood count. Was slightly tachycardic. Blood cultures were ordered. Normal white blood count. Slight elevated CRP. Cardiac work-up unremarkable. Lung sounds clear bilateral. Denies cough or shortness of breath. Concerning for possible fluid collection in the chest. CT scan of the chest and abdomen was ordered which did not show any evidence of fluid collection or soft tissue collection. Patient was requesting Tylenol which was given. She is afebrile here. Pain appears to be more postsurgical. No evidence of infection at this time. She appears well and nontoxic. Currently following up with Dr. Mayer. She is scheduled for total hysterectomy and lymph node biopsy on 16 September at [facility]. She has no evidence of a shingle type rash. She does not appear toxic or septic at this time. She states she has increased her activity level especially at work. She unsure if this is rela tiffany to her work. I did recommend rest but she is requesting to work for another 2 weeks. She is requesting few days worth of pain medication at home to take at night. I strongly recommend talking to her general surgeon at [facility]. If any worsening symptoms return back to ED for further evaluation. Patient vital signs stable slightly hypertensive. Improvement of heart rate. Patient \\as given a liter fluid. Does not appear septic. (HERBERT ARREDONDO) Impression Primary Impression: Left-sided chest pain Disposition: 01 HOME, SELF-CARE Condition: Stable Departure-Patient Inst. Decision time for Depature: 15:47 (HERBERT ARREDONDO) [place] [facility] [place] Primary Care Physician RIDGE SUE APRN (Family) Primary Care Physician Patient Instructions: Chest Pain, Adult ED Add. Discharge Instructions: Recommend follow-up with [facility]. Follow-up with Dr. Mayer here oncologist. If any worsening symptoms return back to ED for further evaluation. Continue with your doxycycline prescribed by your primary care physician All discharge instructions reviewed with patient and/or family. Voiced understanding. Scripts Hydrocodone/Acetaminophen (Hydrocodone-Acetamin 5-325 mg) 5 Mg-325 Mg Tablet 1 TAB PO Q4H PRN for PAIN-MODERATE (5-7), #12 TAB Prov: HERBERT ARREDONDO 09/03/21 ATTENDING PHYSICIAN NOTE: I was physically present as attending physician in the emergency department during the care of this patient, but I was not directly involved in the decision making or delivery of care for this patient. (MARIA ELENA MORA MD) HERBERT ARREDONDO September 03, 2021 13:24 MARIA ELENA MORA MD September 03, 2021 22:00
[2021-09-03] MEDS ORDERED: HOLD METFORMIN - RECEIVED CONTRAST 20 ML VIAL IV SCH (13:45)
[2021-09-03] MEDS ORDERED: IOHEXOL 350 MG/ML 100 ML (OMNIPAQUE 350) VIAL IV ONE (13:45)
[2021-09-03 14:01] LABS: BASOPHILS % (AUTO) 0 % (0-10); EOSINOPHILS # (AUTO) 0.1 10^3/uL (0.0-0.3); EOSINOPHILS % (AUTO) 1 % (0-10); HEMATOCRIT 32 % (35-52); HEMOGLOBIN 10.5 g/dL (11.5-16.0); LYMPHOCYTES # (AUTO) 3.9 10^3/uL (1.0-4.0); LYMPHOCYTES % (AUTO) 42 % (12-44); MEAN CORPUSCULAR HEMOGLOBIN 27 pg (25-34); MEAN CORPUSCULAR HGB CONC 33 g/dL (32-36); MEAN CORPUSCULAR VOLUME 82 fL (80-99); MEAN PLATELET VOLUME 9.4 fL (9.0-12.2); MONOCYTES # (AUTO) 0.5 10^3/uL (0.0-1.0); MONOCYTES % (AUTO) 6 % (0-12); NEUTROPHILS # (AUTO) 4.7 10^3/uL (1.8-7.8); NEUTROPHILS % (AUTO) 51 % (42-75); PLATELET COUNT 360 10^3/uL (130-400); WHITE BLOOD COUNT 9.3 10^3/uL (4.3-11.0)
[2021-09-03 14:17] LABS: ALBUMIN 3.8 GM/DL (3.2-4.5); CHLORIDE 105 MMOL/L (98-107); POTASSIUM 3.7 MMOL/L (3.6-5.0); SODIUM 137 MMOL/L (135-145)
[2021-09-03 14:18] LABS: CALCIUM 9.2 MG/DL (8.5-10.1)
[2021-09-03 14:20] LABS: GLUCOSE 96 MG/DL (70-105); TOTAL PROTEIN 6.8 GM/DL (6.4-8.2)
[2021-09-03 14:21] LABS: BILIRUBIN,TOTAL 0.5 MG/DL (0.1-1.0); CARBON DIOXIDE 22 MMOL/L (21-32)
[2021-09-03 14:23] LABS: ALKALINE PHOSPHATASE 41 U/L (40-136); CREATININE SERUM 0.61 MG/DL (0.60-1.30); GFR ESTIMATED 119
[2021-09-03 14:24] LABS: BUN/CREATININE RATIO 10
[2021-09-03 14:26] LABS: ALANINE AMINOTRANSFERASE 11 U/L (0-55); MAGNESIUM 1.8 MG/DL (1.6-2.4)
[2021-09-03] MEDS ORDERED: ACETAMINOPHEN 500 MG TAB (TYLENOL) PO ONE (14:30)
--- NOTE | 2021-09-03 15:06 | Diagnostic Imaging Report ---
PROCEDURE: CT chest and abdomen with contrast. TECHNIQUE: Multiple contiguous axial images were obtained through the chest and abdomen after the administration of intravenous contrast. Auto Exposure Controls were utilized during the CT exam to meet ALARA standards for radiation dose reduction. INDICATION: Left-sided chest pain and upper abdominal pain. History of mastectomy on August 16, 2021. Drain on the left with redness and swelling. COMPARISON: 05/08/2021, 11/03/2020. FINDINGS: CT CHEST: The heart is normal in size. There is no pericardial effusion. The Port-A-Cath is at the cavoatrial junction. The aorta is normal in caliber. There is no mediastinal lymphadenopathy. There is no pleural effusion or pneumothorax. No central endobronchial lesions are seen. There is dependent atelectasis/scarring in the lung bases. There are numerous surgical clips in the anterior soft tissues with skin thickening and scarring. There are surgical drains at the surgical sites at the anterior chest bilaterally. No significant fluid collections are seen. No soft tissue gas is appreciated. CT ABDOMEN: Liver demonstrates no focal lesions. The spleen, pancreas, adrenal glands appear normal. The kidneys demonstrate no enhancing lesions and no hydronephrosis. The bowel loops are nondistended without obstruction. No free fluid or free air is seen. No acute osseous abnormality is identified. IMPRESSION: 1. Postsurgical changes from prior bilateral mastectomy with surgical drains at the sites. No rim-enhancing fluid collections or soft tissue gas is seen. Dictated by: Dictated on workstation # [id number]
[2021-09-03] MEDS ORDERED: ACHD5005 PO (15:48)
[2021-09-03 16:25] VITALS: BP 160/88
== END 2021-09-03 16:25 | disposition home or self-care (01) ==
LOC: EDUNIT# 13:04 → ER 13:05
DX: T85.698A Other mechanical complication of other specified internal prosthetic devices, implants and grafts, initial encounter (principal); R07.89 Other chest pain; R79.82 Elevated C-reactive protein (CRP); Z87.74 Personal history of (corrected) congenital malformations of heart and circulatory system; Z98.890 Other specified postprocedural states; Z95.9 Presence of cardiac and vascular implant and graft, unspecified; Z85.3 Personal history of malignant neoplasm of breast; Z90.13 Acquired absence of bilateral breasts and nipples
CPT/HCPCS: 36415; 36591; 71260; 74160; 80053; 83735; 84484; 85025; 86141; 87040; 93005

== ENCOUNTER 2021-09-22 11:06 | Emergency (ER) | payer MEDICARE, MEDICAID ==
[~2021-09-22] VITALS: Ht 154 cm; Wt 101.0 kg
[2021-09-22] MEDS ORDERED: fentaNYL INJ 100 MCG/2 ML AMP ONE (11:44)
--- NOTE | 2021-09-22 11:45 | ED Abdominal Pain ---
General Chief Complaint: Post OP Complications/Pain Stated Complaint: POST OP PAIN INCREASING - HYSTERECTOMY Nursing Triage Note: HYST ON September. PT C/O HARD TO PEE "15 MINUTES TO PEE" AND LOTS OF PRESSURE IN LOWER ABD. PT STATES PAIN IS 8/10 AND STARTED ABOUT 3 OR 4 DAYS AGO Source of Information: Patient Exam Limitations: No Limitations History of Present Illness Date Seen by Provider: Sep 22, 2021 Time Seen by Provider: 11:41 Initial Comments This is a 36-year-old female with history of Triple Negative breast cancer and BRCA-1 mutation who presented to the ER with complaints of postop pain after her total hysterectomy on September 17, 2021. States she has an oncology team at [facility] and had the procedure completed by Dr. Smith. Whenever she attempts to use the bathroom she feels like "all of her insides are going to fall out" and she has lots of vaginal and rectal pressure. When she uses restroom she has to sit for 15 minutes and will lean forward to and hold blanket to her abdomen to try to help herself urinate. No vaginal bleeding or discharge. No dysuria or hematuria. She is having normal soft bowel movements. No fever, chills, cough, shortness of breath, chest pain, vomiting, diarrhea. Has chronic nausea and forgot to place her Scopolamine patch this morning. Allergies and Home Medications Allergies Coded Allergies: aprepitant (Verified Allergy, Severe, 05/14/20) PATIENT STATES COULD NOT BREATH fosaprepitant (Verified Allergy, Severe, 05/14/20) PATIENT STATES COULD NOT BREATH latex (Verified Allergy, Severe, BLISTERS, 08/24/17) penicillin (Verified Allergy, Severe, ITCHING, 08/24/17) Sulfa (Sulfonamide Antibiotics) (Verified Allergy, Unknown, RASH, 08/24/17) Uncoded Allergies: STAWBERRIES (Allergy, Mild, RASH, 09/04/20) Patient Home Medication List Home Medication List Reviewed: Yes Acetaminophen (Tylenol Extra Strength) 500 Mg Tablet, 500-1,000 MG PO Q6H PRN for PAIN-MILD (1-4), (Reported) Entered as Reported by: ZHOU WRIGHT on 07/21/20 1215 Aspirin/Acetaminophen/Caffeine (Excedrin Migraine Caplet) 1 Each Tablet, 2 EACH PO Q6-8HR PRN for Headache, (Reported) Entered as Reported by: ZHOU WRIGHT on 07/21/20 1215 Calcium Carbonate (Tums Ultra) 400 Mg Tab.chew, 400-800 MG PO Q6H PRN for INDIGESTION, (Reported) Entered as Reported by: ZHOU WRIGHT on 07/21/20 1215 Cetirizine HCl (Zyrtec) 10 Mg Tablet, 10 MG PO DAILY PRN for ALLERGY SYMPTOMS, (Reported) Entered as Reported by: ZHOU WRIGHT on 07/21/20 1215 Cholecalciferol (Vitamin D3) (Vitamin D3) 1,250 Mcg Capsule, 1,250 MCG PO FRI, (Reported) Entered as Reported by: ZHOU WRIGHT on 01/08/21 153 Cyclosporine (Restasis) 1 Each Droperette, 1 DROP OU BID, (Reported) Entered as Reported by: ZHOU WRIGHT on 07/21/20 121 Gabapentin (Neurontin) 300 Mg Capsule, 300 MG PO HS PRN for PAIN-BREAKTHROUGH, (Reported) Entered as Reported by: ZHOU WRIGHT on 01/08/21 1534 Hydrocodone Bit/Acetaminophen (HYDROcodone/APAP 5 MG/325 MG TAB) 1 Tab Tab, 1-2 TAB PO Q4H PRN for PAIN-MODERATE (5-7) Prescribed by: VALERIA GUILLERMO on 05/08/21 0644 Hydrocodone/Acetaminophen (Hydrocodone-Acetamin 5-325 mg) 5 Mg-325 Mg Tablet, 1 TAB PO Q4H PRN for PAIN-MODERATE (5-7) Prescribed by: JUAN POZO on 09/03/21 1549 Lurasidone HCl (Latuda) 80 Mg Tablet, 80 MG PO 1800 W/MEAL, (Reported) Entered as Reported by: ZHOU WRIGHT on 09/04/20 104 Metoprolol Succinate (Metoprolol Succinate) 50 Mg Tab.er.24h, 50 MG PO BID, (Reported) Entered as Reported by: ZHOU WRIGHT on 09/04/20 104 Ondansetron HCl (Ondansetron HCl) 8 Mg Tablet, 8 MG PO Q8H PRN for NAUSEA/VOMITING-1ST LINE, (Reported) Entered as Reported by: ZHOU WRIGHT on 07/21/20 1215 Pantoprazole Sodium (Pantoprazole Sodium) 40 Mg Tablet.dr, 40 MG PO BID, (Reported) Entered as Reported by: ZHOU WRIGHT on 07/21/20 1215 Sorbitol Solution (Sorbitol) 1 Ml Solution, 15-30 ML PO TID PRN for CONSTIPATION, (Reported) Entered as Reported by: ZHOU WRIGHT on 07/21/20 1215 Sucralfate (Sucralfate) 1 Gm Tablet, 1 GM PO QID PRN for ULCERS, (Reported) Entered as Reported by: ZHOU WRIGHT on 07/21/20 1215 Tizanidine HCl (Tizanidine HCl) 2 Mg Tablet, 2 MG PO BID PRN for MUSCLE SPASMS, (Reported) Entered as Reported by: ZHOU WRIGHT on 01/08/21 1534 Review of Systems Review of Systems Constitutional: no symptoms reported Past Mbmggtl-Uatgdr-Iembog Hx Immunizations Up To Date Tetanus Booster (TDap): Less than 5yrs PED Vaccines UTD: Yes First/Initial COVID19 Vaccinat: July 2020 Second COVID19 Vaccination Gunner: August 2020 Third COVID19 Vaccination Date: MAR 13 2021 Seasonal Allergies Seasonal Allergies: No Past Medical History Surgery/Hospitalization HX: Sepsis/SVT/UTI- Hospitalization, BILATERAL MASECTOMY, RIB SPACERS D/T MASSECTOMY. 08/17/21 cleaned extenders in both breasts at . Surgeries: Yes (Loop Recorder, R PAC, BILAT MASTECTOMY 04/01/21) Breast, Cardiac, Orthopedic, 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, Vascular Surgery Respiratory: No Asthma Currently Using CPAP: No Currently Using BIPAP: No Cardiac: Yes (PFO, SVT) Congenital Heart Disease, Deep Vein Thrombosis, High Cholesterol, Palpitations Neurological: Yes Seizure Disorder, Stroke 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 Disorders: Yes (MENORRHAGIA) Female 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 Disorders: Ovarian Cyst REVIEW ASSISTANT History: 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 Sexually Transmitted Disease: No HIV/AIDS: No Genitourinary: Yes Kidney Stones, UTI-Chronic Gastrointestinal: Yes Irritable Bowel Musculoskeletal: Yes Degenerate Disk Disease, Foot Drop, Scoliosis, Chronic Back Pain, Fractures Endocrine: No (STATES CHEMO HAS AFFECTED BLOOD SUGAR) Diabetes, Non-Insulin dep HEENT: No Loss of Vision: Bilateral Hearing Impairment: Denies Cancer: Yes Breast Did You Recieve Any Treatments: Yes What Type of Treatment Did You: Chemotherapy, Surgical Intervention Psychosocial: Yes (D.I.D.) Anxiety, PTSD, Bipolar Integumentary: No Herpes Blood Disorders: Yes (HX OF HYPERCOLAGUABLE STATE) Adverse Reaction/Blood Tranf: No (N/A) Family Medical History Antiphospholipid syndrome 19 MOTHER Diabetes mellitus 19 FATHER G8 BROTHER FH: aneurysm 19 FATHER FH: lupus 19 MOTHER FHx: congestive heart failure 19 FATHER FHx: renal failure 19 MOTHER Heart murmur 19 MOTHER Lupus anticoagulant disorder 19 MOTHER Patent foramen ovale 19 FATHER Barry syndrome G8 SISTER Physical Exam Vital Signs Vital Signs - First Documented 09/22/21 11:14 Temp 35.6 Pulse 79 Resp 20 B/P (MAP) 139/94 (109) Pulse Ox 99 O2 Delivery Room Air Capillary Refill : Greater Than 3 Seconds Height/Weight/BMI Height: 5'4.00" Weight: 189lbs. 9.0oz. 85.036528wl; 42.00 BMI Method:Stated General Appearance: WD/WN, other (anxious, tearful) HEENT: PERRL/EOMI, normal ENT inspection, pharynx normal Neck: full range of motion, normal inspection Respiratory: lungs clear, normal breath sounds, no respiratory distress, no accessory muscle use Cardiovascular: regular rate, rhythm, no edema, no gallop, no murmur Gastrointestinal: normal bowel sounds, soft, tenderness (suprapubic ) Rectal: normal exam; No heme positive stool, No hemorrhoids Extremities: normal range of motion, non-tender, normal inspection, no pedal edema Back: normal inspection Pelvic: No discharge, No lesions; other (vaginal cuff intact, no purulent discharge ) Neurologic/Psychiatric: no motor/sensory deficits, alert, normal mood/affect, oriented x 3 Skin: normal color, warm/dry Focused Exam Lactate Level 09/22/21 12:40: Lactic Acid Level 0.95 Lactic Acid Level Laboratory Tests Test 09/22/21 12:40 Lactic Acid Level 0.95 MMOL/L (0.50-2.00) Progress/Results/Core Measures Results/Orders Lab Results Laboratory Tests Test 09/22/21 12:40 09/22/21 14:37 Range/Units White Blood Count 8.4 4.3-11.0 10^3/uL Red Blood Count 4.22 3.80-5.11 10^6/uL Hemoglobin 10.9 L 11.5-16.0 g/dL Hematocrit 36 35-52 % Mean Corpuscular Volume 84 80-99 fL Mean Corpuscular Hemoglobin 26 25-34 pg Mean Corpuscular Hemoglobin Concent 31 L 32-36 g/dL Red Cell Distribution Width 14.5 10.0-14.5 % Platelet Count 422 H 130-400 10^3/uL Mean Platelet Volume 9.6 9.0-12.2 fL Immature Granulocyte % (Auto) 1 % Neutrophils (%) (Auto) 63 42-75 % Lymphocytes (%) (Auto) 30 12-44 % Monocytes (%) (Auto) 6 0-12 % Eosinophils (%) (Auto) 0 0-10 % Basophils (%) (Auto) 1 0-10 % Neutrophils # (Auto) 5.3 1.8-7.8 10^3/uL Lymphocytes # (Auto) 2.6 1.0-4.0 10^3/uL Monocytes # (Auto) 0.5 0.0-1.0 10^3/uL Eosinophils # (Auto) 0.0 0.0-0.3 10^3/uL Basophils # (Auto) 0.0 0.0-0.1 10^3/uL Immature Granulocyte # (Auto) 0.0 0.0-0.1 10^3/uL Prothrombin Time 14.1 12.2-14.7 SEC INR Comment 1.1 0.8-1.4 Activated Partial Thromboplast Time 37 H 24-35 SEC Sodium Level 138 135-145 MMOL/L Potassium Level 4.0 3.6-5.0 MMOL/L Chloride Level 106 98-107 MMOL/L Carbon Dioxide Level 22 21-32 MMOL/L Anion Gap 10 5-14 MMOL/L Blood Urea Nitrogen 7 7-18 MG/DL Creatinine 0.71 0.60-1.30 MG/DL Estimat Glomerular Filtration Rate 113 BUN/Creatinine Ratio 10 Glucose Level 105 70-105 MG/DL Lactic Acid Level 0.95 0.50-2.00 MMOL/L Calcium Level 9.5 8.5-10.1 MG/DL Corrected Calcium 9.6 8.5-10.1 MG/DL Total Bilirubin 0.3 0.1-1.0 MG/DL Aspartate Amino Transf (AST/SGOT) 13 5-34 U/L Alanine Aminotransferase (ALT/SGPT) 12 0-55 U/L Alkaline Phosphatase 42 40-136 U/L Total Protein 7.1 6.4-8.2 GM/DL Albumin 3.9 3.2-4.5 GM/DL Urine Color YELLOW Urine Clarity CLEAR Urine pH 7.5 5-9 Urine Specific [place] 1.010 L 1.016-1.022 Urine Protein NEGATIVE NEGATIVE Urine Glucose (UA) NEGATIVE NEGATIVE Urine Ketones NEGATIVE NEGATIVE Urine Nitrite NEGATIVE NEGATIVE Urine Bilirubin NEGATIVE NEGATIVE Urine Urobilinogen 0.2 < = 1.0 MG/DL Urine Leukocyte Esterase NEGATIVE NEGATIVE Urine RBC (Auto) NEGATIVE NEGATIVE Urine RBC 0-2 /HPF Urine WBC RARE /HPF Urine Squamous Epithelial Cells RARE /HPF Urine Crystals NONE /LPF Urine Bacteria TRACE /HPF Urine Casts NONE /LPF Urine Mucus NEGATIVE /LPF Urine Culture Indicated CULTURE PENDING My Orders Orders - JOEL VALENTE APRN Cbc With Automated Diff (09/22/21 11:14) Comprehensive Metabolic Panel (09/22/21 11:14) Ed Iv/Invasive Line Start (09/22/21 11:14) Fentanyl Inj (Sublimaze Injection) (09/22/21 12:00) Fentanyl Inj (Sublimaze Injection) (09/22/21 11:44) Ct Abdomen/Pelvis W (09/22/21 12:05) Blood Culture (09/22/21 12:05) Urinalysis (09/22/21 12:05) Urine Culture (09/22/21 12:05) Protime With Inr (09/22/21 12:05) Partial Thromboplastin Time (09/22/21 12:05) Chest 1 View, Ap/Pa Only (09/22/21 12:05) Vital Signs Adult Sepsis Patie Q15M (09/22/21 12:05) O2 (09/22/21 12:05) Remove Rings In Anticipation O (09/22/21 12:05) Lactic Acid Analyzer (09/22/21 12:05) Lorazepam Injection (Ativan Injection) (09/22/21 12:15) Iohexol Injection (Omnipaque 350 Mg/Ml 1 (09/22/21 12:15) Received Contrast (Hold Metformin- Contr (09/22/21 12:15) Sodium Chloride Flush (Catheter Flush Sy (09/22/21 12:15) Ns (Ivpb) (Sodium Chloride 0.9% Ivpb Bag (09/22/21 12:15) Hydromorphone Injection (Dilaudid Inject (09/22/21 13:00) Lidocaine 2% (Urojet) (Xylocaine Urojet) (09/22/21 14:20) Hydromorphone Injection (Dilaudid Inject (09/22/21 15:00) Scopolamine Patch (Transderm-Scop Patch) (09/22/21 15:15) Heparin (Central Iv Flush) (Heparin (Ander (09/22/21 15:30) Implanted Port: Access (09/22/21 15:16) Medications Given in ED Current Medications Medications Dose Ordered Sig/[facility] Route Start Time Stop Time Status Last Admin Dose Admin Heparin Sodium (Porcine) 500 unit ONCE ONCE IV 09/22/21 15:30 09/22/21 15:28 DC 09/22/21 15:21 500 UNIT Hydromorphone HCl 0.5 mg ONCE ONCE IV 09/22/21 15:00 09/22/21 15:01 DC 09/22/21 15:04 0.5 MG Lidocaine HCl 10 ml STK-MED ONCE .ROUTE 09/22/21 14:20 09/22/21 14:23 DC 09/22/21 14:45 10 ML Scopolamine 1.5 mg ONCE ONCE TD 09/22/21 15:15 09/22/21 15:16 DC 09/22/21 15:14 1.5 MG Vital Signs/I&O 09/22/21 09/22/21 09/22/21 09/22/21 11:14 11:54 13:15 15:04 Temp 35.6 35.6 35.6 35.6 Pulse 79 Resp 20 B/P (MAP) 139/94 (109) Pulse Ox 99 O2 Delivery Room Air 09/22/21 15:28 Temp 35.9 Pulse 68 Resp 18 B/P (MAP) 101/66 Pulse Ox 99 O2 Delivery Room Air Blood Pressure Mean: 109 Progress Progress Note : Progress Note Patient examined and she is very tearful and emotional. States " Every time I have something done, there is always something else that comes along, or new finding that was unexpected". States " I feel like I have done nothing but live in hospitals". States that after her double mastectomy she was able to work within 4 days and she is very upset that she is struggling after this procedure. she has been in communication with her REVIEW ASSISTANT physician who performed the procedure on September 17. They refilled her prescription for Oxycodone and ins tructed to take Colace. Patient states that she does not feel like she is "being heard". She feels like there is something more going on than just simple postop pain. Given Fentanyl 50mcg IVP for pain. Labs reviewed and are unremarkable. No elevation of white count, slight decrease in hemoglobin which is not unexpected after procedure however it is stable at 10.9. She is unable to urinate at this time. However she did have some increased pain after attempting to urinate so she was given a dose of Dil audid 0.5 mg IV push. States that this did significantly help with her pain. Also went ahead and gave her Ativan 0.5 mg IV push as she was very anxious and tearful. CT abdomen pelvis demonstrates a 3.5 x 3.1 cm fluid collection in the central portion of the pelvis, just anterior to the rectum above the vaginal cuff. Which very well could account for the additional pressure she is experiencing. Straight cath performed to empty bladder and to obtain UA. UA negative for UTI. Vaginal exam unremarkable. reviewed findings with her REVIEW ASSISTANT Dr. Aguirre at [facility]. States that her symptoms are pretty common after this procedure and she will need to plan for 8 week healing time. Discussed that her body will likely absorb fluid collection in pelvis. She will plan to have her office touch base with patient tomorrow to evaluate how she is doing. Plan of care reviewed with patient and she is agreeable with plan of care at this time. Strongly reinforced relaxing and taking it easy at home. Patient is a very independent individual and has a difficult time having others help with task. She verbalized understanding. Diagnostic Imaging Diagonstic Imaging: Xray Comments [facility], [place] NAME: COLTON ORTIZ [facility] REC#: [id number] PT STATUS: REG ER : 1985 PHYSICIAN: JOEL VALENTE PAINT STRIPING MACHINE OPERATOR ADMIT DATE: 09/22/21/ER Signed Date of Exam:09/22/21 CHEST 1 VIEW, AP/PA ONLY INDICATION: Sepsis. TECHNIQUE: Frontal chest obtained at 12:28 p.m. and compared to 01/08/2021. FINDINGS: Port-A-Cath is unchanged. Surgical clips over the chest on both sides are again noted. There is no focal infiltrate or pneumothorax or pleural fluid. Heart and mediastinal silhouette are normal in appearance. IMPRESSION: Postop changes with no acute process in the chest. Dictated by: Dictated on workstation # [id number] Dict: 09/22/21 1229 Trans: 09/22/21 1245 [id number] Interpreted by: GABO MCLAUGHLIN MD Electronically signed by: GABO MCLAUGHLIN MD 09/22/21 1245 Diagonstic Imaging: CT Plain Films/CT/US/NM/MRI: abdomen, pelvis Comments [facility] [place], [place] NAME: COLTON ORTIZ Diomedes [facility] REC#: [id number] PT STATUS: REG ER : 1985 PHYSICIAN: JOEL VALENTE APRN ADMIT DATE: 09/22/21/ER Signed Date of Exam:09/22/21 CT ABDOMEN/PELVIS W Indication: Abdominal pain, history of hysterectomy on September 17. TECHNIQUE: Multiple contiguous axial images were obtained through the abdomen and pelvis after administration of intravenous contrast. Auto Exposure Controls were utilized during the CT exam to meet ALARA standards for radiation dose reduction. All CT scans use one or more of the following dose optimizing techniques: automated exposure control, MA and/or KvP adjustment based on patient size and exam type or iterative reconstruction. Comparison made to prior CT abdomen of 09/03/2021. Visualized portions of the lung bases are clear. There is no pleural fluid collection. There is a small amount of free intraperitoneal air which can be explained by recent surgery. There are postoperative changes in the left breast with a fluid density area partially visualized measuring about 4.8 x 2.9 cm. The liver and gallbladder are normal. Spleen, adrenals, and pancreas appear normal. The kidneys bilaterally are unremarkable. There is no retroperitoneal mass or adenopathy. Visualized bowel loops are unremarkable. There are postoperative changes in the pelvis status post hysterectomy. There is a small fluid density area in the central portion of the pelvis measuring about 3.1 x 3.5 cm. IMPRESSION: Postop changes status post recent hysterectomy, there is a small amount of free air which can be explained by recent surgery. There is a 3.5 x 3.1 cm fluid collection in the central portion of the pelvis, just anterior to the rectum above the vaginal cuff. This appearance is nonspecific and this could represent postop seroma, hematoma, or abscess. There are postoperative changes in the left breast with a fluid density area partially visualized measuring 4.8 x 2.9 cm. Consider sonographic evaluation as clinically warranted. Dictated by: Dictated on workstation # [id number] Dict: 09/22/21 1314 Trans: 09/22/21 1431 [facility] [id number] Interpreted by: GABO MCLAUGHLIN MD Electronically signed by: GABO MCLAUGHLIN MD 09/22/21 1431 Reviewed: Reviewed by Me Departure Impression Primary Impression: Postoperative seroma Disposition: 01 HOME, SELF-CARE Condition: Improved (ERASED) Departure-Patient Inst. Decision time for Depature: 15:09 Referrals: [facility] (PCP) Primary Care Physician RIDGE SUE APRN (Family) Primary Care Physician Patient Instructions: Seroma Add. Discharge Instructions: Plan: 1. You should hear from your surgeon office tomorrow to check on you to see how you are feeling. 2. Make sure you are resting at home. You can still get up and move around, but take it easy and allow your body to heal. 3. Return to the ER immediately if you are unable to urinate, you develop bleeding, or purulent drainage from vagina. 4. You do have a seroma just above the vaginal cuff, this may also be contributing to the additional pressure you feel in your pelvic and rectal region. Your body should absorb this over time. 5. Return if you develop fever, increased pain, or any other new or concerning symptoms. Copy Copies To 1: [facility]JOEL PETERSEN APRN Sep 22, 2021 11:45
[2021-09-22] MEDS ORDERED: fentaNYL INJ 100 MCG/2 ML AMP IVP ONE (12:00)
[2021-09-22] MEDS ORDERED: IOHEXOL 350 MG/ML 100 ML (OMNIPAQUE 350) VIAL IV ONE (12:15)
[2021-09-22] MEDS ORDERED: CATHETER FLUSH 10 ML SYR IV PRN (12:15)
[2021-09-22] MEDS ORDERED: LORazepam INJ 2 MG/ML (ATIVAN) VIAL IVP ONE (12:15)
[2021-09-22] MEDS ORDERED: HOLD METFORMIN - RECEIVED CONTRAST 20 ML VIAL IV SCH (12:15)
[2021-09-22] MEDS ORDERED: NS 100 ML (IVPB) BAG IV ONE (12:15)
--- NOTE | 2021-09-22 12:32 | Diagnostic Imaging Report ---
INDICATION: Sepsis. TECHNIQUE: Frontal chest obtained at 12:28 p.m. and compared to 01/08/2021. FINDINGS: Port-A-Cath is unchanged. Surgical clips over the chest on both sides are again noted. There is no focal infiltrate or pneumothorax or pleural fluid. Heart and mediastinal silhouette are normal in appearance. IMPRESSION: Postop changes with no acute process in the chest. Dictated by: Dictated on workstation # [id number]
[2021-09-22 12:50] LABS: BASOPHILS % (AUTO) 1 % (0-10); EOSINOPHILS % (AUTO) 0 % (0-10); HEMATOCRIT 36 % (35-52); HEMOGLOBIN 10.9 g/dL (11.5-16.0); LYMPHOCYTES # (AUTO) 2.6 10^3/uL (1.0-4.0); LYMPHOCYTES % (AUTO) 30 % (12-44); MEAN CORPUSCULAR HEMOGLOBIN 26 pg (25-34); MEAN CORPUSCULAR HGB CONC 31 g/dL (32-36); MEAN CORPUSCULAR VOLUME 84 fL (80-99); MEAN PLATELET VOLUME 9.6 fL (9.0-12.2); MONOCYTES # (AUTO) 0.5 10^3/uL (0.0-1.0); MONOCYTES % (AUTO) 6 % (0-12); NEUTROPHILS # (AUTO) 5.3 10^3/uL (1.8-7.8); NEUTROPHILS % (AUTO) 63 % (42-75); PLATELET COUNT 422 10^3/uL (130-400); WHITE BLOOD COUNT 8.4 10^3/uL (4.3-11.0)
[2021-09-22] MEDS ORDERED: HYDROmorphone 2 MG/ML VIAL (DILAUDID) IV ONE ×2 (13:00→15:00)
[2021-09-22 13:04] LABS: ALBUMIN 3.9 GM/DL (3.2-4.5)
[2021-09-22 13:05] LABS: CALCIUM 9.5 MG/DL (8.5-10.1)
[2021-09-22 13:07] LABS: INR 1.1 (0.8-1.4); PROTHROMBIN TIME PATIENT 14.1 SEC (12.2-14.7); TOTAL PROTEIN 7.1 GM/DL (6.4-8.2)
[2021-09-22 13:08] LABS: BILIRUBIN,TOTAL 0.3 MG/DL (0.1-1.0)
[2021-09-22 13:10] LABS: CREATININE SERUM 0.71 MG/DL (0.60-1.30)
--- NOTE | 2021-09-22 13:28 | Diagnostic Imaging Report ---
Indication: Abdominal pain, history of hysterectomy on September 17. TECHNIQUE: Multiple contiguous axial images were obtained through the abdomen and pelvis after administration of intravenous contrast. Auto Exposure Controls were utilized during the CT exam to meet ALARA standards for radiation dose reduction. All CT scans use one or more of the following dose optimizing techniques: automated exposure control, MA and/or KvP adjustment based on patient size and exam type or iterative reconstruction. Comparison made to prior CT abdomen of 09/03/2021. Visualized portions of the lung bases are clear. There is no pleural fluid collection. There is a small amount of free intraperitoneal air which can be explained by recent surgery. There are postoperative changes in the left breast with a fluid density area partially visualized measuring about 4.8 x 2.9 cm. The liver and gallbladder are normal. Spleen, adrenals, and pancreas appear normal. The kidneys bilaterally are unremarkable. There is no retroperitoneal mass or adenopathy. Visualized bowel loops are unremarkable. There are postoperative changes in the pelvis status post hysterectomy. There is a small fluid density area in the central portion of the pelvis measuring about 3.1 x 3.5 cm. IMPRESSION: Postop changes status post recent hysterectomy, there is a small amount of free air which can be explained by recent surgery. There is a 3.5 x 3.1 cm fluid collection in the central portion of the pelvis, just anterior to the rectum above the vaginal cuff. This appearance is nonspecific and this could represent postop seroma, hematoma, or abscess. There are postoperative changes in the left breast with a fluid density area partially visualized measuring 4.8 x 2.9 cm. Consider sonographic evaluation as clinically warranted. Dictated by: Dictated on workstation # [id number]
[2021-09-22] MEDS ORDERED: LIDOCAINE UROJET 2% GEL 10 ML PKG ONE (14:20)
[2021-09-22 14:47] LABS: BILIRUBIN,URINE NEGATIVE (NEGATIVE); CLARITY,URINE CLEAR; COLOR,URINE YELLOW; GLUCOSE, URINE (UA) NEGATIVE (NEGATIVE); KETONES,URINE NEGATIVE (NEGATIVE); LEUKOCYTE ESTERASE ,URINE NEGATIVE (NEGATIVE); NITRITE,URINE NEGATIVE (NEGATIVE); PH,URINE 7.5 (5-9); PROTEIN,URINE NEGATIVE (NEGATIVE)
[2021-09-22 14:53] LABS: BACTERIA,URINE TRACE /HPF; RBC,URINE 0-2 /HPF; SQUAMOUS EPITHELIAL CELL,UR RARE /HPF; WBC,URINE RARE /HPF
[2021-09-22] MEDS ORDERED: SCOPOLAMINE 1.5 MG (TRANSDERM-SCOP) PATCH TD ONE (15:15)
[2021-09-22 15:28] VITALS: BP 101/66
[2021-09-22] MEDS ORDERED: HEParin (CENTRAL IV FLUSH) 500 UNIT/5 ML SYR IV ONE (15:30)
== END 2021-09-22 15:28 | disposition home or self-care (01) ==
LOC: EDUNIT# 11:06 → ER 11:09
DX: K91.872 Postprocedural seroma of a digestive system organ or structure following a digestive system procedure (principal); Z90.710 Acquired absence of both cervix and uterus; Z85.3 Personal history of malignant neoplasm of breast; Z90.13 Acquired absence of bilateral breasts and nipples
CPT/HCPCS: 36415; 51701; 71045; 74177; 80053; 81000; 83605; 85025; 85610; 85730; 87040; 87088

== ENCOUNTER 2021-10-05 10:17 | Outpatient (RCR) | payer MEDICARE, MEDICAID | END 2021-10-08 | disposition home or self-care (01) | LOC: ONC 10:17 | PROVIDERS: ATTEND Internal Medicine | DX: C50.411 Malignant neoplasm of upper-outer quadrant of right female breast (principal); E55.9 Vitamin D deficiency, unspecified; E11.9 Type 2 diabetes mellitus without complications; E78.5 Hyperlipidemia, unspecified; K21.9 Gastro-esophageal reflux disease without esophagitis; D50.9 Iron deficiency anemia, unspecified; Z90.11 Acquired absence of right breast and nipple | CPT/HCPCS: 99213 ==

== ENCOUNTER 2021-11-11 10:00 | Emergency (ER) | payer MEDICARE, MEDICAID ==
[2021-11-11 10:43] VITALS: BP 119/75
== END 2021-11-11 11:45 | disposition left against medical advice (07) ==
LOC: EDUNIT# 10:00 → ER 10:01
DX: R59.0 Localized enlarged lymph nodes (principal)
CPT/HCPCS: 99281

== ENCOUNTER 2021-12-22 15:58 | Emergency (ER) | payer MEDICARE, MEDICAID ==
[~2021-12-22] VITALS: Ht 154.9 cm; Wt 82.5 kg
--- NOTE | 2021-12-22 17:04 | ED Integumentary General ---
General Chief Complaint: Skin/Wound Problems Stated Complaint: POST OP, LEAKAGE FROM LEFT BREAST Source: patient Exam Limitations: no limitations History of Present Illness Date Seen by Provider: Dec 22, 2021 Time Seen by Provider: 17:04 Initial Comments This is a well-appearing 36-year-old female with history of triple negative breast cancer with BRCA-1 mutation who presented to the ER with complaints of drainage from her left mastectomy incision. She had a bilateral mastectomy in 2019. She had tissue director selection and administration removed at [facility] on 17 August. States she has been following with her oncologist at , Recent imaging of her breasts show potential old seroma versus hematoma in the soft tissue of bilateral breast incision sites. States earlier today she felt a little pocket of fluid on her left lateral side and when she pushed on it "pus came squirting out of it". States drainage had foul odor. Has no redness or erythema at site. No tenderness. States that she just received her remission status a few months ago, but after her recent imaging there is concern that she may have recurrent tumors on the left side, she has biopsy scheduled this . Also states over the past few weeks she has had intermittent elevated temperature ranging from 99- 102.9. She called her primary care office and they recommended she go to the ER for further evaluation. At this time she denies fever, chills, nausea, vomiting, abdominal pain. Allergies and Home Medications Allergies Coded Allergies: aprepitant (Verified Allergy, Severe, 05/14/20) PATIENT STATES COULD NOT BREATH fosaprepitant (Verified Allergy, Severe, 05/14/20) PATIENT STATES COULD NOT BREATH latex (Verified Allergy, Severe, BLISTERS, 08/24/17) penicillin (Verified Allergy, Severe, ITCHING, 08/24/17) Sulfa (Sulfonamide Antibiotics) (Verified Allergy, Unknown, RASH, 08/24/17) Uncoded Allergies: STAWBERRIES (Allergy, Mild, RASH, 09/04/20) Patient Home Medication List Home Medication List Reviewed: Yes Acetaminophen (Tylenol Extra Strength) 500 Mg Tablet, 500-1,000 MG PO Q6H PRN for PAIN-MILD (1-4), (Reported) Entered as Reported by: ZHOU WRIGHT on 07/21/20 1215 Aspirin/Acetaminophen/Caffeine (Excedrin Migraine Caplet) 1 Each Tablet, 2 EACH PO Q6-8HR PRN for Headache, (Reported) Entered as Reported by: ZHOU WRIGHT on 07/21/20 1215 Calcium Carbonate (Tums Ultra) 400 Mg Tab.chew, 400-800 MG PO Q6H PRN for INDIGESTION, (Reported) Entered as Reported by: ZHOU WRIGHT on 07/21/20 1215 Cetirizine HCl (Zyrtec) 10 Mg Tablet, 10 MG PO DAILY PRN for ALLERGY SYMPTOMS, (Reported) Entered as Reported by: ZHOU WRIGHT on 07/21/20 1215 Cholecalciferol (Vitamin D3) (Vitamin D3) 1,250 Mcg Capsule, 1,250 MCG PO FRI, (Reported) Entered as Reported by: ZHOU WRIGHT on 01/08/21 1534 Cyclosporine (Restasis) 1 Each Droperette, 1 DROP OU BID, (Reported) Entered as Reported by: ZHOU WRIGHT on 07/21/20 121 Gabapentin (Neurontin) 300 Mg Capsule, 300 MG PO HS PRN for PAIN-BREAKTHROUGH, (Reported) Entered as Reported by: ZHOU WRIGHT on 01/08/21 1534 Hydrocodone Bit/Acetaminophen (HYDROcodone/APAP 5 MG/325 MG TAB) 1 Tab Tab, 1-2 TAB PO Q4H PRN for PAIN-MODERATE (5-7) Prescribed by: VALERIA GUILLERMO on 05/08/21 0644 Hydrocodone/Acetaminophen (Hydrocodone-Acetamin 5-325 mg) 5 Mg-325 Mg Tablet, 1 TAB PO Q4H PRN for PAIN-MODERATE (5-7) Prescribed by: JUAN POZO on 09/03/21 1549 Levofloxacin (Levofloxacin) 500 Mg Tablet, 500 MG PO DAILY Prescribed by: JOEL VALENTE on 12/23/21 1246 Lurasidone HCl (Latuda) 80 Mg Tablet, 80 MG PO 1800 W/MEAL, (Reported) Entered as Reported by: ZHOU WRIGHT on 09/04/20 1047 Metoprolol Succinate (Metoprolol Succinate) 50 Mg Tab.er.24h, 50 MG PO BID, (Reported) Entered as Reported by: ZHOU WRIGHT on 09/04/20 104 Ondansetron HCl (Ondansetron HCl) 8 Mg Tablet, 8 MG PO Q8H PRN for NAUSEA/VOMITING-1ST LINE, (Reported) Entered as Reported by: ZHOU WRIGHT on 07/21/20 1215 Pantoprazole Sodium (Pantoprazole Sodium) 40 Mg Tablet.dr, 40 MG PO BID, (Reported) Entered as Reported by: ZHOU WRGIHT on 07/21/20 1215 Sorbitol Solution (Sorbitol) 1 Ml Solution, 15-30 ML PO TID PRN for CONSTIPATION, (Reported) Entered as Reported by: ZHUO WRIGHT on 07/21/20 1215 Sucralfate (Sucralfate) 1 Gm Tablet, 1 GM PO QID PRN for ULCERS, (Reported) Entered as Reported by: ZHOU WRIGHT on 07/21/20 1215 Tizanidine HCl (Tizanidine HCl) 2 Mg Tablet, 2 MG PO BID PRN for MUSCLE SPASMS, (Reported) Entered as Reported by: ZHOU WRIGHT on 01/08/21 1534 Review of Systems Review of Systems Constitutional: see HPI : No Past Jshimnk-Aixzco-Vealro Hx Immunizations Up To Date Tetanus Booster (TDap): Less than 5yrs PED Vaccines UTD: Yes First/Initial COVID19 Vaccinat: July 2020 Second COVID19 Vaccination Gunner: August 2020 Third COVID19 Vaccination Date: MAR 13 2021 Seasonal Allergies Seasonal Allergies: No Past Medical History Surgery/Hospitalization HX: Sepsis/SVT/UTI- Hospitalization, BILATERAL MASECTOMY, RIB SPACERS D/T MASSECTOMY. 08/17/21 cleaned extenders in both breasts at . HYSTERECTOMY Surgeries: Yes (Loop Recorder, R PAC, BILAT MASTECTOMY 04/01/21) Breast, Cardiac, Orthopedic, 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, Vascular Surgery Respiratory: No Asthma Currently Using CPAP: No Currently Using BIPAP: No Cardiac: Yes (PFO, SVT) Congenital Heart Disease, Deep Vein Thrombosis, High Cholesterol, Palpitations Neurological: Yes Seizure Disorder, Stroke 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 Disorders: Yes (MENORRHAGIA) Female 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 Disorders: Ovarian Cyst STUNT DOUBLE History: 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 Sexually Transmitted Disease: No HIV/AIDS: No Genitourinary: Yes Kidney Stones, UTI-Chronic Gastrointestinal: Yes Irritable Bowel Musculoskeletal: Yes Degenerate Disk Disease, Foot Drop, Scoliosis, Chronic Back Pain, Fractures Endocrine: No (STATES CHEMO HAS AFFECTED BLOOD SUGAR) Diabetes, Non-Insulin dep HEENT: No Loss of Vision: Bilateral Hearing Impairment: Denies Cancer: Yes Breast Did You Recieve Any Treatments: Yes What Type of Treatment Did You: Chemotherapy, Surgical Intervention Psychosocial: Yes (D.I.D.) Anxiety, PTSD, Bipolar Integumentary: No Herpes Blood Disorders: Yes (HX OF HYPERCOLAGUABLE STATE) Adverse Reaction/Blood Tranf: No (N/A) Family Medical History Antiphospholipid syndrome 19 MOTHER Diabetes mellitus 19 FATHER G8 BROTHER FH: aneurysm 19 FATHER FH: lupus 19 MOTHER FHx: congestive heart failure 19 FATHER FHx: renal failure 19 MOTHER Heart murmur 19 MOTHER Lupus anticoagulant disorder 19 MOTHER Patent foramen ovale 19 FATHER Barry syndrome G8 SISTER Physical Exam Vital Signs Vital Signs - First Documented 12/22/21 16:15 Temp 37.0 Pulse 90 Resp 16 B/P (MAP) 118/86 (97) Pulse Ox 97 Capillary Refill : General Appearance: WD/WN, no apparent distress HEENT: PERRL/EOMI, normal ENT inspection Neck: full range of motion, normal inspection Cardiovascular: regular rate, rhythm, no murmur Respiratory: lungs clear, normal breath sounds, no respiratory distress, no accessory muscle use Gastrointestinal: normal bowel sounds, non tender, soft Extremities: normal range of motion, non-tender, normal inspection Neurologic/Psychiatric: no motor/sensory deficits, alert, normal mood/affect, oriented x 3 Skin: normal color, warm/dry Skin Problem Location: other (Small open site at lateral border of left breast incision site. ) Skin Problem Character: other (healed surgical incision, slight opening at left lateral border near axilla. No swelling, erythema, or discharge. ) Lymphatic: no adenopathy Progress/Results/Core Measures Results/Orders Lab Results Laboratory Tests Test 12/22/21 17:20 12/22/21 17:34 Range/Units White Blood Count 8.7 4.3-11.0 10^3/uL Red Blood Count 4.32 3.80-5.11 10^6/uL Hemoglobin 11.2 L 11.5-16.0 g/dL Hematocrit 36 35-52 % Mean Corpuscular Volume 84 80-99 fL Mean Corpuscular Hemoglobin 26 25-34 pg Mean Corpuscular Hemoglobin Concent 31 L 32-36 g/dL Red Cell Distribution Width 17.5 H 10.0-14.5 % Platelet Count 365 130-400 10^3/uL Mean Platelet Volume 9.8 9.0-12.2 fL Immature Granulocyte % (Auto) 0 % Neutrophils (%) (Auto) 55 42-75 % Lymphocytes (%) (Auto) 38 12-44 % Monocytes (%) (Auto) 5 0-12 % Eosinophils (%) (Auto) 1 0-10 % Basophils (%) (Auto) 1 0-10 % Neutrophils # (Auto) 4.8 1.8-7.8 10^3/uL Lymphocytes # (Auto) 3.3 1.0-4.0 10^3/uL Monocytes # (Auto) 0.5 0.0-1.0 10^3/uL Eosinophils # (Auto) 0.1 0.0-0.3 10^3/uL Basophils # (Auto) 0.0 0.0-0.1 10^3/uL Immature Granulocyte # (Auto) 0.0 0.0-0.1 10^3/uL Prothrombin Time 13.2 12.2-14.7 SEC INR Comment 1.0 0.8-1.4 Activated Partial Thromboplast Time 32 24-35 SEC Sodium Level 143 135-145 MMOL/L Potassium Level 4.9 3.6-5.0 MMOL/L Chloride Level 107 98-107 MMOL/L Carbon Dioxide Level 23 21-32 MMOL/L Anion Gap 13 5-14 MMOL/L Blood Urea Nitrogen 10 7-18 MG/DL Creatinine 0.77 0.60-1.30 MG/DL Estimat Glomerular Filtration Rate 102 BUN/Creatinine Ratio 13 Glucose Level 91 70-105 MG/DL Lactic Acid Level 0.58 0.50-2.00 MMOL/L Calcium Level 10.1 8.5-10.1 MG/DL Corrected Calcium 9.9 8.5-10.1 MG/DL Total Bilirubin 0.2 0.1-1.0 MG/DL Aspartate Amino Transf (AST/SGOT) 26 5-34 U/L Alanine Aminotransferase (ALT/SGPT) 19 0-55 U/L Alkaline Phosphatase 49 40-136 U/L Total Protein 7.9 6.4-8.2 GM/DL Albumin 4.2 3.2-4.5 GM/DL Urine Color YELLOW Urine Clarity SL CLOUDY Urine pH 6.0 5-9 Urine Specific [place] >=1.030 1.016-1.022 Urine Protein NEGATIVE NEGATIVE Urine Glucose (UA) NEGATIVE NEGATIVE Urine Ketones NEGATIVE NEGATIVE Urine Nitrite NEGATIVE NEGATIVE Urine Bilirubin NEGATIVE NEGATIVE Urine Urobilinogen 0.2 < = 1.0 MG/DL Urine Leukocyte Esterase NEGATIVE NEGATIVE Urine RBC (Auto) NEGATIVE NEGATIVE Urine RBC NONE /HPF Urine WBC 0-2 /HPF Urine Squamous Epithelial Cells NONE /HPF Urine Renal Epithelial Cells NONE /HPF Urine Crystals NONE /LPF Urine Bacteria NEGATIVE /HPF Urine Casts NONE /LPF Urine Mucus NEGATIVE /LPF Urine Culture Indicated CULTURE PENDING Micro Results Microbiology 12/22/21 Urine Culture - Preliminary, Resulted Proteus species 12/22/21 Blood Culture - Preliminary, Resulted No growth 12/22/21 Blood Culture - Preliminary, Resulted No growth 12/22/21 Gram Stain, Resulted Pending 12/22/21 Wound Culture - Preliminary, Resulted Proteus species My Orders Orders - JOEL VALENTE HVAC OPERATIONS TECHNICIAN Cbc With Automated Diff (12/22/21 16:27) Comprehensive Metabolic Panel (12/22/21 16:27) Blood Culture (12/22/21 16:27) Urinalysis (12/22/21 16:27) Urine Culture (12/22/21 16:27) Protime With Inr (12/22/21 16:27) Partial Thromboplastin Time (12/22/21 16:27) Chest 1 View, Ap/Pa Only (12/22/21 16:27) Ed Iv/Invasive Line Start (12/22/21 16:27) Vital Signs Adult Sepsis Patie Q15M (12/22/21 16:27) O2 (12/22/21 16:27) Remove Rings In Anticipation O (12/22/21 16:27) Wound Culture (12/22/21 16:27) Lactic Acid Analyzer (12/22/21 16:27) Vital Signs/I&O 12/22/21 12/22/21 16:15 19:08 Temp 37.0 Pulse 90 74 Resp 16 B/P (MAP) 118/86 (97) 126/98 Pulse Ox 97 100 Progress Progress Note : Progress Note Patient examined in no acute distress. She is on active chemo and based on history we will go ahead and obtain sepsis work-up. On exam she does not have any evidence of acute infectious process. I am able to visualize the opening where she was able to expel scant drainage for culture. Opening is approximately 2mm. Site was cleansed and covered with dry dressing and tape. Deferred imaging as her recent imaging reveled likely old bilateral seroma/hematoma which is currently being managed with surgery/oncology. Labs and imaging reviewed, no evidence of acute infectious process or sepsis at this time. Her vital signs are stable, she has no fever she does not have a toxic appearance. We will have her keep area covered with dry dressing, avoid soaking. She has follow-up in 2 days with her oncologist. At this time I do not see need for antibiotics however strongly encouraged her to return or contact her physician if she has any pain, redness, increased drainage from the site. Additionally if she has any persistent fevers, nausea, vomiting this would warrant additional work-up. We do have a wound culture pending and should have results within 72 hours. She will be contacted via telephone if we need to start her on any antibiotics. She did request all of her information be faxed to her oncologist office. Consent for disclosure of this visit to her oncologist Dr. Harris obtained. We will fax report. Discharge plan of care reviewed and she is agreeable with plan. She verbalized understanding of strict return precautions. Diagnostic Imaging Diagonstic Imaging: Xray Plain Films/CT/US/NM/MRI: chest Comments [facility] [place], [place] NAME: COLTON ORTIZ [facility] REC#: [id number] PT STATUS: DEP ER : 1985 PHYSICIAN: JOEL VALENTE APRN ADMIT DATE: 12/22/21/ER Signed Date of Exam:12/22/21 CHEST 1 VIEW, AP/PA ONLY INDICATION: Sepsis, history of breast cancer Frontal chest obtained at 5:29 p.m. and compared to 09/22/2021. Heart and mediastinal silhouette are normal in appearance. Port-A-Cath is unchanged. There are surgical clips over the chest wall on both sides. There is no focal infiltrate or pneumothorax or pleural fluid. IMPRESSION: No acute process in the chest. Dictated by: Dictated on workstation # [id number] Dict: 12/22/211726 Trans: 12/22/211936 CV [id number] Interpreted by: GABO MCLAUGHLIN MD Electronically signed by: GABO MCLAUGHLIN MD 12/22/211936 Reviewed: Reviewed by Me Departure Communication (Admissions) Family Conversation 12/23/2021: Called patient and updated regarding preliminary growth of wound culture. She has allergies to sulfa and penicillin. Order sent to [facility] for Levaquin 500 mg once a day for 7 days. Additionally she informed me she was having increased pain at the site and her typical Tylenol and Ibuprofen was not helping. Orders placed for Hydrocodone every 4 as needed severe pain. She has follow up with her oncologist tomorrow. Impression Primary Impression: Postoperative wound seroma Disposition: HOME, SELF-CARE Condition: Stable/Unchanged Departure-Patient Inst. Decision time for Depature: 18:52 Referrals: [facility] (PCP) Primary Care Physician RIDGE SUE APRN (Family) Primary Care Physician Patient Instructions: Wound Care (DC) Add. Discharge Instructions: Plan: 1. Wash site gently with mild soap and water, allow water to run over the area, do not soak. Apply dry dressing and allowed to drain. 2. Monitor for any increased redness, swelling, increased discharge. 3. Keep your follow-up with your oncologist on as previously directed, we will send copies of today's labs. 4. You do have a wound culture pending we will call you via telephone if there is any need for antibiotics. 5. Return to the ER for any new, concerning, worsening symptoms. All discharge instructions reviewed with patient and/or family. Voiced understanding. Scripts Hydrocodone/Acetaminophen (Hydrocodone-Acetamin 5-325 mg) 5 Mg-325 Mg Tablet 1 TAB PO Q4H PRN for PAIN-MODERATE (5-7), #15 TAB 0 Refills Prov: JOEL VALENTE HVAC OPERATIONS TECHNICIAN 12/23/21 Levofloxacin (Levofloxacin) 500 Mg Tablet 500 MG PO DAILY for 7 Days, #7 TAB 0 Refills Prov: JOEL VALENTE APRN 12/23/21 Copy Copies To 1: [facility]JOEL PETERSEN APRN Dec 22, 2021 17:04
--- NOTE | 2021-12-22 17:29 | Diagnostic Imaging Report ---
INDICATION: Sepsis, history of breast cancer Frontal chest obtained at 5:29 p.m. and compared to 09/22/2021. Heart and mediastinal silhouette are normal in appearance. Port-A-Cath is unchanged. There are surgical clips over the chest wall on both sides. There is no focal infiltrate or pneumothorax or pleural fluid. IMPRESSION: No acute process in the chest. Dictated by: Dictated on workstation # [id number]
[2021-12-22 17:33] LABS: BASOPHILS % (AUTO) 1 % (0-10); EOSINOPHILS # (AUTO) 0.1 10^3/uL (0.0-0.3); EOSINOPHILS % (AUTO) 1 % (0-10); HEMATOCRIT 36 % (35-52); HEMOGLOBIN 11.2 g/dL (11.5-16.0); LYMPHOCYTES # (AUTO) 3.3 10^3/uL (1.0-4.0); LYMPHOCYTES % (AUTO) 38 % (12-44); MEAN CORPUSCULAR HEMOGLOBIN 26 pg (25-34); MEAN CORPUSCULAR HGB CONC 31 g/dL (32-36); MEAN CORPUSCULAR VOLUME 84 fL (80-99); MEAN PLATELET VOLUME 9.8 fL (9.0-12.2); MONOCYTES # (AUTO) 0.5 10^3/uL (0.0-1.0); MONOCYTES % (AUTO) 5 % (0-12); NEUTROPHILS # (AUTO) 4.8 10^3/uL (1.8-7.8); NEUTROPHILS % (AUTO) 55 % (42-75); PLATELET COUNT 365 10^3/uL (130-400); WHITE BLOOD COUNT 8.7 10^3/uL (4.3-11.0)
[2021-12-22 17:53] LABS: ALBUMIN 4.2 GM/DL (3.2-4.5); POTASSIUM 4.9 MMOL/L (3.6-5.0)
[2021-12-22 17:54] LABS: CALCIUM 10.1 MG/DL (8.5-10.1)
[2021-12-22 17:55] LABS: PROTHROMBIN TIME PATIENT 13.2 SEC (12.2-14.7); TOTAL PROTEIN 7.9 GM/DL (6.4-8.2)
[2021-12-22 17:57] LABS: BILIRUBIN,TOTAL 0.2 MG/DL (0.1-1.0)
[2021-12-22 17:59] LABS: BILIRUBIN,URINE NEGATIVE (NEGATIVE); CLARITY,URINE SL CLOUDY; COLOR,URINE YELLOW; GLUCOSE, URINE (UA) NEGATIVE (NEGATIVE); KETONES,URINE NEGATIVE (NEGATIVE); LEUKOCYTE ESTERASE ,URINE NEGATIVE (NEGATIVE); NITRITE,URINE NEGATIVE (NEGATIVE); PROTEIN,URINE NEGATIVE (NEGATIVE)
[2021-12-22 17:59] LABS: CREATININE SERUM 0.77 MG/DL (0.60-1.30)
[2021-12-22 18:01] LABS: BACTERIA,URINE NEGATIVE /HPF; WBC,URINE 0-2 /HPF
[2021-12-22 19:08] VITALS: BP 126/98
[2021-12-23] MEDS ORDERED: LEVO-55 PO (12:46)
[2021-12-23] MEDS ORDERED: ACHD5005 PO (15:44)
== END 2021-12-22 19:09 | disposition home or self-care (01) ==
LOC: EDUNIT# 15:58 → ER 16:00
DX: M96.843 Postprocedural seroma of a musculoskeletal structure following other procedure (principal); Z85.3 Personal history of malignant neoplasm of breast; Z90.12 Acquired absence of left breast and nipple; Z91.040 Latex allergy status; Z88.0 Allergy status to penicillin; Z88.2 Allergy status to sulfonamides
CPT/HCPCS: 36415; 71045; 80053; 81000; 83605; 85025; 85610; 85730; 87040; 87070; 87088; 87205; 99282

== ENCOUNTER 2021-12-28 09:19 | Outpatient (RCR) | payer MEDICARE, MEDICAID | END 2022-01-08 | disposition home or self-care (01) | LOC: ONC 09:19 | PROVIDERS: ATTEND Internal Medicine | DX: C50.411 Malignant neoplasm of upper-outer quadrant of right female breast (principal); E55.9 Vitamin D deficiency, unspecified; E11.9 Type 2 diabetes mellitus without complications; E78.5 Hyperlipidemia, unspecified; K21.9 Gastro-esophageal reflux disease without esophagitis; D50.9 Iron deficiency anemia, unspecified; Z90.11 Acquired absence of right breast and nipple ==

== ENCOUNTER → 2021-12-28 | Outpatient (CLI) | payer MEDICARE, MEDICAID ==
[~2021-12-28] MED LIST changes: +LEVO-55 PO
--- NOTE | 2021-12-28 09:45 | Diagnostic Imaging Report ---
INDICATION: Right arm swelling. TECHNIQUE: Multiple real-time grayscale images were obtained over the right upper extremity in various projections. Duplex Doppler and color Doppler images were also obtained. FINDINGS: The right jugular, subclavian, axillary, brachiocephalic and basilic veins demonstrate normal response to compression, augmentation and Valsalva. Superficial veins are not well-visualized. There are no abnormal fluid collections or masses. IMPRESSION: No evidence of deep venous thrombosis in the right upper extremity. Dictated by: Dictated on workstation # [id number]
== END ==
LOC: RAD 10:00
DX: M79.89 Other specified soft tissue disorders (principal); Z90.13 Acquired absence of bilateral breasts and nipples

== ENCOUNTER 2022-01-25 09:20 | Outpatient (RCR) | payer MEDICARE, MEDICAID ==
[~2022-01-25 09:20] MED LIST changes: +ALBU8.5H6 IH; -RT-ALBUINH IH
== END 2022-02-08 | disposition home or self-care (01) ==
LOC: ONC 09:20
PROVIDERS: ATTEND Internal Medicine
DX: C50.411 Malignant neoplasm of upper-outer quadrant of right female breast (principal); E55.9 Vitamin D deficiency, unspecified; E11.9 Type 2 diabetes mellitus without complications; E78.5 Hyperlipidemia, unspecified; K21.9 Gastro-esophageal reflux disease without esophagitis; D50.9 Iron deficiency anemia, unspecified; Z90.11 Acquired absence of right breast and nipple
CPT/HCPCS: 99213

== ENCOUNTER → 2022-02-03 | Outpatient (CLI) | payer MEDICARE, MEDICAID ==
[~2022-02-03] MED LIST changes: -ALBU8.5H6 IH; +CATHETER FLUSH 10 ML SYR IV PRN; +HOLD METFORMIN - RECEIVED CONTRAST 20 ML VIAL IV SCH; +IOHEXOL 350 MG/ML 100 ML (OMNIPAQUE 350) VIAL IV ONE; +NS 100 ML (IVPB) BAG IV ONE; +RT-ALBUINH IH
--- NOTE | 2022-02-03 15:06 | Diagnostic Imaging Report ---
PROCEDURE: CT chest, abdomen, and pelvis with contrast. TECHNIQUE: Multiple contiguous axial images were obtained through the chest, abdomen, and pelvis after the administration of intravenous contrast. Auto Exposure Controls were utilized during the CT exam to meet ALARA standards for radiation dose reduction. DATE: February 03, 2022. INDICATION: 36-year-old female, right axillary pain and swelling. History of double mastectomy and hysterectomy. COMPARISON: CT abdomen and pelvis September 22, 2021. CT chest and abdomen September 03, 2021. CT chest, abdomen, and pelvis November 03, 2020. FINDINGS: There is no identified pulmonary nodule or lung mass. There is no identified focal airspace consolidation. There is no pneumothorax. There is no pleural effusion. The central airways are patent. The heart is not grossly enlarged. There is no pericardial effusion. There is no identified abnormally enlarged mediastinal, hilar, or axillary lymph node which meets CT size criteria for adenopathy. There are surgical clips in the region of both breasts, compatible with the provided history of double mastectomy. There is no identified focal drainable fluid collection. There is a right axillary lymph node on axial image 20 which measures 7 mm in short axis. This is unchanged since at least September 03, 2021. The liver is unremarkable in size and contour. There is no identified liver lesion. The main, right, and left portal veins are patent. The gallbladder is unremarkable. There is no intrahepatic or extrahepatic bile duct dilation. The main pancreatic duct is not abnormally dilated. Unremarkable appearance of the pancreatic parenchyma. The spleen is normal in size. The adrenal glands are unremarkable. There is a 5 mm low-attenuation lesion in the right kidney on axial image 93 which is too small to characterize. This is unchanged since the comparison study. The urinary collecting systems are not distended. There is no identified renal or ureteral stone. The urinary bladder is unremarkable. The appendix is best seen on axial image 172 and adjacent sequential images. There is no evidence of acute appendicitis. There is no free intraperitoneal air. There is no sizable volume free fluid in the abdomen or pelvis. There is no identified abnormally enlarged lymph node in the abdomen or pelvis which meets CT size criteria for adenopathy. There is moderate to severe disc height loss at L5-S1. There is no identified bone lesion concerning for bone metastasis. There is no otherwise identified acute bony abnormality. IMPRESSION: 1. No evidence of metastatic disease at the level of the chest, abdomen, or pelvis. 2. Status post double mastectomy without focal fluid collection. Dictated by: Dictated on workstation # [id number]
== END ==
LOC: RAD 13:30
PROVIDERS: ATTEND Internal Medicine Hematology & Oncology
DX: M79.621 Pain in right upper arm (principal); R22.31 Localized swelling, mass and lump, right upper limb; Z90.11 Acquired absence of right breast and nipple; Z90.710 Acquired absence of both cervix and uterus; Z85.3 Personal history of malignant neoplasm of breast
CPT/HCPCS: 71260; 74177

== ENCOUNTER → 2022-02-12 | Outpatient (CLI) | payer MEDICARE, MEDICAID ==
[~2022-02-12] MED LIST changes: +ALBU8.5H6 IH; -CATHETER FLUSH 10 ML SYR IV PRN; -HOLD METFORMIN - RECEIVED CONTRAST 20 ML VIAL IV SCH; -IOHEXOL 350 MG/ML 100 ML (OMNIPAQUE 350) VIAL IV ONE; -NS 100 ML (IVPB) BAG IV ONE; -RT-ALBUINH IH
--- NOTE | 2022-02-12 13:06 | Diagnostic Imaging Report ---
INDICATION: Right breast carcinoma. Patient was administered 27.0 mCi technetium 99m MDP intravenously and whole-body imaging was performed after a three-hour delay. Correlation is made with prior whole body bone scan from 11/03/2020. There is normal uptake of activity by the axial and appendicular skeleton. There is uptake by the kidneys with excretion to urinary bladder. There are some degenerative uptake about the right knee, similar to prior exam. No suspicious foci are identified to suggest osseous metastatic disease. IMPRESSION: No scintigraphic evidence of osseous metastatic disease. Dictated by: Dictated on workstation # [id number]
== END ==
LOC: CARD 09:05
PROVIDERS: ATTEND Internal Medicine Hematology & Oncology
DX: C50.411 Malignant neoplasm of upper-outer quadrant of right female breast (principal)
CPT/HCPCS: 78306

== ENCOUNTER 2022-02-22 10:20 | Outpatient (RCR) | payer MEDICARE, MEDICAID ==
[2022-02-22 10:53] LABS: BASOPHILS # (AUTO) 0.1 10^3/uL (0.0-0.1); BASOPHILS % (AUTO) 1 % (0-10); EOSINOPHILS # (AUTO) 0.1 10^3/uL (0.0-0.3); EOSINOPHILS % (AUTO) 1 % (0-10); HEMATOCRIT 36 % (35-52); HEMOGLOBIN 11.5 g/dL (11.5-16.0); LYMPHOCYTES % (AUTO) 39 % (12-44); MEAN CORPUSCULAR HEMOGLOBIN 27 pg (25-34); MEAN CORPUSCULAR HGB CONC 32 g/dL (32-36); MEAN CORPUSCULAR VOLUME 83 fL (80-99); MEAN PLATELET VOLUME 9.9 fL (9.0-12.2); MONOCYTES # (AUTO) 0.5 10^3/uL (0.0-1.0); MONOCYTES % (AUTO) 4 % (0-12); NEUTROPHILS # (AUTO) 5.7 10^3/uL (1.8-7.8); NEUTROPHILS % (AUTO) 55 % (42-75); PLATELET COUNT 350 10^3/uL (130-400); WHITE BLOOD COUNT 10.4 10^3/uL (4.3-11.0)
[2022-02-22 11:14] LABS: ALBUMIN 4.2 GM/DL (3.2-4.5); BILIRUBIN,TOTAL 0.2 MG/DL (0.1-1.0); CALCIUM 9.9 MG/DL (8.5-10.1); CREATININE SERUM 0.75 MG/DL (0.60-1.30); POTASSIUM 3.7 MMOL/L (3.6-5.0); TOTAL PROTEIN 7.7 GM/DL (6.4-8.2)
[2022-03-01] MEDS ORDERED: PRD50T PO (05:52)
[2022-03-01] MEDS ORDERED: ALBU8.5H6 INH (05:52)
[2022-03-10] MEDS ORDERED: DOCU-143 PO (20:00)
[2022-03-10] MEDS ORDERED: APIX2.5T PO (20:00)
[2022-03-10] MEDS ORDERED: OXYC1TAB87 PO (20:00)
== END 2022-03-10 | disposition home or self-care (01) ==
LOC: ONC 10:20
PROVIDERS: ATTEND Internal Medicine
DX: Z45.2 Encounter for adjustment and management of vascular access device (principal); C50.411 Malignant neoplasm of upper-outer quadrant of right female breast; E55.9 Vitamin D deficiency, unspecified; E11.9 Type 2 diabetes mellitus without complications; E78.5 Hyperlipidemia, unspecified; K21.9 Gastro-esophageal reflux disease without esophagitis
CPT/HCPCS: 36415; 36591; 80053; 85025

== ENCOUNTER 2022-03-01 05:30 | Emergency (ER) | payer MEDICARE, MEDICAID ==
--- NOTE | 2022-03-01 05:41 | ED Cough/URI ---
General Chief Complaint: Fever-Adult/Adol Stated Complaint: SOA - COUGH - FEVER - CONGESTION Source: patient Exam Limitations: no limitations (EMELIA GARCIA DO) History of Present Illness Date Seen by Provider: Mar 01, 2022 Time Seen by Provider: 05:35 Initial Comments 36-year-old female with history of BRCA2, currently not undergoing chemotherapy and potentially in remission presents to the emergency department for shortness of breath, cough and body aches. She feels as though she has had fevers as well. Symptoms started on and have been worsening, especially last night. No sick contacts. Cough is minimally productive but she states she can "feel it in my chest." No chest pain. No abdominal pain. No changes in bowel or bladder habits. (EMELIA GARCIA DO) Allergies and Home Medications Allergies Coded Allergies: aprepitant (Verified Allergy, Severe, 05/14/20) PATIENT STATES COULD NOT BREATH fosaprepitant (Verified Allergy, Severe, 05/14/20) PATIENT STATES COULD NOT BREATH latex (Verified Allergy, Severe, BLISTERS, 08/24/17) penicillin (Verified Allergy, Severe, ITCHING, 08/24/17) Sulfa (Sulfonamide Antibiotics) (Verified Allergy, Unknown, RASH, 08/24/17) Uncoded Allergies: STAWBERRIES (Allergy, Mild, RASH, 09/04/20) Patient Home Medication List Home Medication List Reviewed: Yes (EMELIA GARCIA DO) Home Medication List Reviewed: Yes (RICHELLE MULTANI MD) Acetaminophen (Tylenol Extra Strength) 500 Mg Tablet, 500-1,000 MG PO Q6H PRN for PAIN-MILD (1-4), (Reported) Entered as Reported by: ZHOU WRIGHT on 07/21/20 1215 Albuterol Sulfate (Ventolin Hfa) 90 Mcg Hfa.aer.ad, 2 PUFF INH Q4H Prescribed by: EMELIA GARCIA MD on 03/01/22 0552 Aspirin/Acetaminophen/Caffeine (Excedrin Migraine Caplet) 1 Each Tablet, 2 EACH PO Q6-8HR PRN for Headache, (Reported) Entered as Reported by: ZHOU WRIGHT on 07/21/20 1215 Calcium Carbonate (Tums Ultra) 400 Mg Tab.chew, 400-800 MG PO Q6H PRN for INDIGESTION, (Reported) Entered as Reported by: ZHOU WRIGHT on 07/21/20 1215 Cetirizine HCl (Zyrtec) 10 Mg Tablet, 10 MG PO DAILY PRN for ALLERGY SYMPTOMS, (Reported) Entered as Reported by: ZHOU WRIGHT on 07/21/20 1215 Cholecalciferol (Vitamin D3) (Vitamin D3) 1,250 Mcg Capsule, 1,250 MCG PO FRI, (Reported) Entered as Reported by: ZHOU WRIGHT on 01/08/21 1534 Cyclosporine (Restasis) 1 Each Droperette, 1 DROP OU BID, (Reported) Entered as Reported by: ZHOU WRIGHT on 07/21/20 1215 Gabapentin (Neurontin) 300 Mg Capsule, 300 MG PO HS PRN for PAIN-BREAKTHROUGH, (Reported) Entered as Reported by: ZHOU WRIGHT on 01/08/21 1534 Hydrocodone Bit/Acetaminophen (HYDROcodone/APAP 5 MG/325 MG TAB) 1 Tab Tab, 1-2 TAB PO Q4H PRN for PAIN-MODERATE (5-7) Prescribed by: VALERIA GUILLERMO on 05/08/21 0644 Hydrocodone/Acetaminophen (Hydrocodone-Acetamin 5-325 mg) 5 Mg-325 Mg Tablet, 1 TAB PO Q4H PRN for PAIN-MODERATE (5-7) Prescribed by: JUAN POZO on 09/03/21 1549 Hydrocodone/Acetaminophen (Hydrocodone-Acetamin 5-325 mg) 5 Mg-325 Mg Tablet, 1 TAB PO Q4H PRN for PAIN-MODERATE (5-7) Prescribed by: JOEL VALENTE on 12/23/21 1544 Levofloxacin (Levofloxacin) 500 Mg Tablet, 500 MG PO DAILY Prescribed by: JOEL VALENTE on 12/23/21 1246 Lurasidone HCl (Latuda) 80 Mg Tablet, 80 MG PO 1800 W/MEAL, (Reported) Entered as Reported by: ZHOU WRIGHT on 09/04/20 1047 Metoprolol Succinate (Metoprolol Succinate) 50 Mg Tab.er.24h, 50 MG PO BID, (Reported) Entered as Reported by: ZHOU WRIGHT on 09/04/20 104 Ondansetron HCl (Ondansetron HCl) 8 Mg Tablet, 8 MG PO Q8H PRN for NAUSEA/VOMITING-1ST LINE, (Reported) Entered as Reported by: ZHOU WRIGHT on 07/21/20 1215 Pantoprazole Sodium (Pantoprazole Sodium) 40 Mg Tablet.dr, 40 MG PO BID, (Reported) Entered as Reported by: ZHOU WRIGHT on 07/21/20 1215 Prednisone (Prednisone) 50 Mg Tab, 50 MG PO DAILY Prescribed by: EMELIA GARCIA MD on 03/01/22 0552 Sorbitol Solution (Sorbitol) 1 Ml Solution, 15-30 ML PO TID PRN for CONSTIPATION, (Reported) Entered as Reported by: ZHOU WRIGHT on 07/21/20 121 Sucralfate (Sucralfate) 1 Gm Tablet, 1 GM PO QID PRN for ULCERS, (Reported) Entered as Reported by: ZHOU WRIGHT on 07/21/20 121 Tizanidine HCl (Tizanidine HCl) 2 Mg Tablet, 2 MG PO BID PRN for MUSCLE SPASMS, (Reported) Entered as Reported by: ZHOU WRIGHT on 01/08/21 1534 Review of Systems Review of Systems Constitutional: chills, fever EENTM: no symptoms reported Respiratory: cough, short of breath Cardiovascular: no symptoms reported Gastrointestinal: no symptoms reported Genitourinary: no symptoms reported Musculoskeletal: no symptoms reported Skin: no symptoms reported Psychiatric/Neurological: No Symptoms Reported Hematologic/Lymphatic: No Symptoms Reported Immunological/Allergic: no symptoms reported (EMELIA GARCIA DO) Past Ctsgbat-Nnksxu-Lbqlht Hx Patient Social History Tobacco Use?: No Use of E-Cig and/or Vaping dev: No Substance use?: No Alcohol Use?: No (EMELIA GARCIA DO) Immunizations Up To Date Tetanus Booster (TDap): Less than 5yrs PED Vaccines UTD: Yes First/Initial COVID19 Vaccinat: July 2020 Second COVID19 Vaccination Gunner: August 2020 Third COVID19 Vaccination Date: MAR 13 2021 (EMELIA GARCIA DO) Seasonal Allergies Seasonal Allergies: No (EMELIA GARCIA DO) Past Medical History Surgery/Hospitalization HX: Sepsis/SVT/UTI- Hospitalization, BILATERAL MASECTOMY, RIB SPACERS D/T MASSECTOMY. 08/17/21 cleaned extenders in both breasts at . HYSTERECTOMY Surgeries: Yes (Loop Recorder, R PAC, BILAT MASTECTOMY 04/01/21) Breast, Cardiac, Orthopedic, 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, Vascular Surgery Respiratory: No Asthma Currently Using CPAP: No Currently Using BIPAP: No Cardiac: Yes (PFO, SVT) Congenital Heart Disease, Deep Vein Thrombosis, High Cholesterol, Palpitations Neurological: Yes Seizure Disorder, Stroke 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 Disorders: Yes (MENORRHAGIA) Female 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 Disorders: Ovarian Cyst [employer] History: 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 Sexually Transmitted Disease: No HIV/AIDS: No Genitourinary: Yes Kidney Stones, UTI-Chronic Gastrointestinal: Yes Irritable Bowel Musculoskeletal: Yes Degenerate Disk Disease, Foot Drop, Scoliosis, Chronic Back Pain, Fractures Endocrine: No (STATES CHEMO HAS AFFECTED BLOOD SUGAR) Diabetes, Non-Insulin dep HEENT: No Loss of Vision: Bilateral Hearing Impairment: Denies Cancer: Yes Breast Did You Recieve Any Treatments: Yes What Type of Treatment Did You: Chemotherapy, Surgical Intervention Psychosocial: Yes (D.I.D.) Anxiety, PTSD, Bipolar Integumentary: No Herpes Blood Disorders: Yes (HX OF HYPERCOLAGUABLE STATE) Adverse Reaction/Blood Tranf: No (N/A) (EMELIA GARCIA DO) Family Medical History Reviewed Nursing Family Hx (EMELIA GARCIA DO) Antiphospholipid syndrome 19 MOTHER Diabetes mellitus 19 FATHER G8 BROTHER FH: aneurysm 19 FATHER FH: lupus 19 MOTHER FHx: congestive heart failure 19 FATHER FHx: renal failure 19 MOTHER Heart murmur 19 MOTHER Lupus anticoagulant disorder 19 MOTHER Patent foramen ovale 19 FATHER Barry syndrome G8 SISTER Physical Exam Vital Signs - First Documented 03/01/22 05:33 Temp 36.8 Pulse 78 Resp 24 B/P (MAP) 114/83 (93) Pulse Ox 99 O2 Delivery Room Air (RICHELLE MULTANI MD) Capillary Refill : (EMELIA GARCIA DO) Height: 5'4.00" Weight: 189lbs. 9.0oz. [id number]; 34.00 BMI Method:Stated General Appearance: WD/WN, no apparent distress HEENT: PERRL/EOMI, normal ENT inspection, TMs normal, pharynx normal Neck: full range of motion, supple, normal inspection Respiratory: chest non-tender, no accessory muscle use, other (Mild increased work of breathing. Expiratory wheezing bilaterally with coarse rhonchi scattered throughout bilateral lung kahn, worse in the bases bilaterally.) Cardiovascular: regular rate, rhythm, no gallop, no JVD, no murmur, other (2+ pitting edema bilateral lower extremities) Gastrointestinal: normal bowel sounds, non tender, no organomegaly Extremities: normal range of motion, non-tender, normal inspection, normal capillary refill, pedal edema Neurologic/Psychiatric: alert, normal mood/affect, oriented x 3 Skin: normal color, warm/dry (EMELIA GARCIA DO) Progress/Results/Core Measures Suspected Sepsis SIRS Temperature: Pulse: Respiratory Rate: Blood Pressure / Mean: (EMELIA GARCIA DO) Results/Orders Lab Results Laboratory Tests Test 03/01/22 05:38 Range/Units Influenza Type A (RT-PCR) Not Detected Not Detecte Influenza Type B (RT-PCR) Not Detected Not Detecte SARS-CoV-2 RNA (RT-PCR) Not Detected Not Detecte (RICHELLE MULTANI MD) Medications Given in ED Current Medications Medications Dose Ordered Sig/Diomedes Route Start Time Stop Time Status Last Admin Dose Admin Albuterol/ Ipratropium 3 ml ONCE ONCE INH 03/01/22 05:45 03/01/22 05:46 DC 03/01/22 05:49 3 ML Prednisone 50 mg ONCE ONCE PO 03/01/22 05:45 03/01/22 05:46 DC 03/01/22 05:49 50 MG (RICHELLE MULTANI MD) Vital Signs/I&O 03/01/22 03/01/22 05:33 05:33 Temp 36.8 Pulse 78 Resp 24 B/P (MAP) 114/83 (93) Pulse Ox 99 O2 Delivery Room Air Room Air (RICHELLE MULTANI MD) Vital Signs/I&O Capillary Refill : (EMELIA GARCIA DO) Progress Note : Time: 06:17 Progress Note Covid / Flu neg. Home with Dr Garcia's discharge instructions. (RICHELLE MULTANI MD) Diagnostic Imaging Diagonstic Imaging: Xray Comments AP chest x-ray: Negative for any acute findings (EMELIA GARCIA DO) Departure Communication (Admissions) Patient is hemodynamically stable. Initially has some significant wheezing, relieved after DuoNeb treatment. She is given p.o. steroids here. Her chest x- ray is clear for any evidence for pneumonia, pneumothorax or other acute pulmonary pathology. No indication of cardiac etiology at this time. (RADHAGEORGINA MaoAmrita Hsieh DO) Impression Primary Impression: Viral upper respiratory illness Disposition: 01 HOME, SELF-CARE Condition: Stable Departure-Patient Inst. Decision time for Depature: 06:19 (RICHELLE MULTANI MD) Referrals: [facility] [place]) Primary Care Physician RIDGE SUE APRN (Family) Primary Care Physician Patient Instructions: Viral Upper Respiratory Infection, Adult (DC) Add. Discharge Instructions: Take prednisone daily until it is gone. Use your albuterol inhaler as needed for wheezing, shortness of breath. Increase your fluids at home and rest. Alternate Motrin and Tylenol as needed for fevers, body aches. Return to the emergency department for any severe concerns. Follow-up with your primary doctor for any nonemergent needs. All discharge instructions reviewed with patient and/or family. Voiced understanding. Scripts Prednisone (Prednisone) 50 Mg Tab 50 MG PO DAILY for 3 Days, #3 TAB Prov: RADHAGEORGINA MaoAmrita Hsieh DO 03/01/22 Albuterol Sulfate (Ventolin Hfa) 90 Mcg Hfa.aer.ad 2 PUFF INH Q4H for Wheezing for 7 Days, #1 EA 0 Refills 1 PUFF = 90 MCG Prov: RADHA,EMELIAALETHA Hsieh DO 03/01/22 Work/School Note: Work Release Form Date Seen in the Emergency Department: Mar 01, 2022 Return to Work: Mar 02, 2022 Restrictions: No Restrictions RADHADANNIEEMELIAALETHA Hsieh DO Mar 01, 2022 05:41 RICHELLE MULTANI MD Mar 01, 2022 06:18
[2022-03-01] MEDS ORDERED: predniSONE 20 MG TAB PO ONE (05:45)
[2022-03-01] MEDS ORDERED: RT-ALBUTEROL/IPRATROPIUM 3 ML (DUONEB) VIAL INH ONE (05:45)
[2022-03-01] MEDS ORDERED: PRD50T PO (05:52)
[2022-03-01] MEDS ORDERED: ALBU8.5H6 INH (05:52)
[2022-03-01 06:23] VITALS: BP 119/81
--- NOTE | 2022-03-01 08:03 | Diagnostic Imaging Report ---
INDICATION: Dyspnea, rhonchi, wheeze. Cough and congestion x4 days.. TECHNIQUE: Single view chest 5:38 AM. CORRELATION STUDY: 12/22/2021 FINDINGS: Right IJ [id number]-[id number] catheter tip at the caval atrial junction. Heart size and mediastinum unremarkable. Vasculature overall within normal limits. The lungs are clear with no consolidating infiltrate. There is no significant effusion or pneumothorax. Surgical clips over the bilateral chest wall and axilla compatible with prior mastectomy. IMPRESSION: 1. Stable chest demonstrates no acute cardiopulmonary abnormality. Dictated by: Dictated on workstation # [id number]
== END 2022-03-01 06:27 | disposition home or self-care (01) ==
LOC: EDUNIT# 05:30 → ER 05:31
DX: J06.9 Acute upper respiratory infection, unspecified (principal); R60.0 Localized edema; Z20.822 Contact with and (suspected) exposure to COVID-19; Z28.310 Unvaccinated for COVID-19
CPT/HCPCS: 71045; 87636

== ENCOUNTER 2022-03-10 17:13 | Emergency (ER) | payer MEDICARE, MEDICAID ==
[~2022-03-10] VITALS: Ht 154 cm; Wt 97.0 kg
[~2022-03-10 17:13] MED LIST changes: +ALBU8.5H6 INH; +PRD50T PO
[2022-03-10] MEDS ORDERED: fentaNYL INJ 100 MCG/2 ML AMP IVP ONE ×2 (17:30→18:00)
[2022-03-10] MEDS ORDERED: ONDANSETRON 4 MG/2 ML (SDV) Z0FRAN IVP ONE (17:30)
--- NOTE | 2022-03-10 17:30 | ED Lower Extremity ---
General Chief Complaint: Lower Extremity Stated Complaint: LT LEG PAIN Nursing Triage Note: PT TO RM 3 PER W/C PT STATES HAS INJURED L FEMUR WHEN TRYING TO RESTRAIN SON AND LEGS WERE TANGLE UP, STATES UNABLE TO BARE WT AT THIS X. RATES PAIN 7/10. PT HAS GOOD PEDAL PULSES. DENIES HITTING HEAD OR ANY OTHER INJURIES AT THIS X. Source: patient Exam Limitations: no limitations (RICHELLE MULTANI MD) History of Present Illness Date Seen by Provider: Mar 10, 2022 Time Seen by Provider: 17:00 Initial Comments Patient is a 36-year-old female who presents to the emergency room with a chief complaint of mid left tibia pain. She was attempting to restrain her son who has a history of mental health issues, their legs got tangled up and she fell down onto her left leg. She states she felt and heard a snap. She has had a previous right leg fracture and she states the pain feels the same. She currently rates it at a "7-1/2". She denies any numbness or tingling to her foot. She denies any pain to her knee. No other complaints of recent illness or injury. She does have a history of triple negative breast cancer and is about 1 year out of chemotherapy All other review of systems reviewed and negative except as stated. Onset: just prior to arrival Pain/Injury Location: left leg Method of Injury: fell Modifying Factors: Worse With Movement (RICHELLE MULTANI MD) Allergies and Home Medications Allergies Coded Allergies: aprepitant (Verified Allergy, Severe, 05/14/20) PATIENT STATES COULD NOT BREATH fosaprepitant (Verified Allergy, Severe, 05/14/20) PATIENT STATES COULD NOT BREATH latex (Verified Allergy, Severe, BLISTERS, 08/24/17) penicillin (Verified Allergy, Severe, ITCHING, 08/24/17) Sulfa (Sulfonamide Antibiotics) (Verified Allergy, Unknown, RASH, 08/24/17) Uncoded Allergies: STAWBERRIES (Allergy, Mild, RASH, 09/04/20) Patient Home Medication List Home Medication List Reviewed: Yes (RICHELLE MULTANI MD) Acetaminophen (Tylenol Extra Strength) 500 Mg Tablet, 500-1,000 MG PO Q6H PRN for PAIN-MILD (1-4), (Reported) Entered as Reported by: ZHOU WRIGHT on 07/21/20 1215 Albuterol Sulfate (Ventolin Hfa) 90 Mcg Hfa.aer.ad, 2 PUFF INH Q4H Prescribed by: EMELIA GARCIA MD on 03/01/22 0552 Aspirin/Acetaminophen/Caffeine (Excedrin Migraine Caplet) 1 Each Tablet, 2 EACH PO Q6-8HR PRN for Headache, (Reported) Entered as Reported by: ZHOU WRIGHT on 07/21/20 1215 Calcium Carbonate (Tums Ultra) 400 Mg Tab.chew, 400-800 MG PO Q6H PRN for INDIGESTION, (Reported) Entered as Reported by: ZHOU WRIGHT on 07/21/20 1215 Cetirizine HCl (Zyrtec) 10 Mg Tablet, 10 MG PO DAILY PRN for ALLERGY SYMPTOMS, (Reported) Entered as Reported by: ZHOU WRIGHT on 07/21/20 1215 Cholecalciferol (Vitamin D3) (Vitamin D3) 1,250 Mcg Capsule, 1,250 MCG PO FRI, (Reported) Entered as Reported by: ZHOU WRIGHT on 01/08/21 1534 Cyclosporine (Restasis) 1 Each Droperette, 1 DROP OU BID, (Reported) Entered as Reported by: ZHOU WRIGHT on 07/21/20 1215 Gabapentin (Neurontin) 300 Mg Capsule, 300 MG PO HS PRN for PAIN-BREAKTHROUGH, (Reported) Entered as Reported by: ZHOU WRIGHT on 01/08/21 1534 Hydrocodone Bit/Acetaminophen (HYDROcodone/APAP 5 MG/325 MG TAB) 1 Tab Tab, 1-2 TAB PO Q4H PRN for PAIN-MODERATE (5-7) Prescribed by: VALERIA GUILLERMO on 05/08/21 0644 Hydrocodone/Acetaminophen (Hydrocodone-Acetamin 5-325 mg) 5 Mg-325 Mg Tablet, 1 TAB PO Q4H PRN for PAIN-MODERATE (5-7) Prescribed by: JUAN POZO on 09/03/21 1549 Hydrocodone/Acetaminophen (Hydrocodone-Acetamin 5-325 mg) 5 Mg-325 Mg Tablet, 1 TAB PO Q4H PRN for PAIN-MODERATE (5-7) Prescribed by: JOEL VALENTE on 12/23/21 1544 Levofloxacin (Levofloxacin) 500 Mg Tablet, 500 MG PO DAILY Prescribed by: JOEL VALENTE on 12/23/21 1246 Lurasidone HCl (Latuda) 80 Mg Tablet, 80 MG PO 1800 W/MEAL, (Reported) Entered as Reported by: ZHOU WRIGHT on 09/04/20 1047 Metoprolol Succinate (Metoprolol Succinate) 50 Mg Tab.er.24h, 50 MG PO BID, (Reported) Entered as Reported by: ZHOU WRIGHT on 09/04/20 1047 Ondansetron HCl (Ondansetron HCl) 8 Mg Tablet, 8 MG PO Q8H PRN for NAUSEA/VOMITING-1ST LINE, (Reported) Entered as Reported by: ZHOU WRIGHT on 07/21/20 1215 Pantoprazole Sodium (Pantoprazole Sodium) 40 Mg Tablet.dr, 40 MG PO BID, (Reported) Entered as Reported by: ZHOU WRIGHT on 07/21/20 1215 Prednisone (Prednisone) 50 Mg Tab, 50 MG PO DAILY Prescribed by: EMELIA GARCIA MD on 03/01/22 0552 Sorbitol Solution (Sorbitol) 1 Ml Solution, 15-30 ML PO TID PRN for CONSTIPATION, (Reported) Entered as Reported by: ZHOU WRIGHT on 07/21/20 1215 Sucralfate (Sucralfate) 1 Gm Tablet, 1 GM PO QID PRN for ULCERS, (Reported) Entered as Reported by: ZHOU WRIGHT on 07/21/20 1215 Tizanidine HCl (Tizanidine HCl) 2 Mg Tablet, 2 MG PO BID PRN for MUSCLE SPASMS, (Reported) Entered as Reported by: ZHOU WRIGHT on 01/08/21 1534 Review of Systems Constitutional: see HPI Respiratory: no symptoms reported Cardiovascular: no symptoms reported Gastrointestinal: no symptoms reported Musculoskeletal: other (left leg pain) Skin: no symptoms reported (RICHELLE MULTANI MD) All Other Systems Reviewed Negative Unless Noted: Yes (RICHELLE MULTANI MD) Past Fzlseuw-Gqdwds-Lxhfsw Hx Patient Social History Tobacco Use?: Yes Tobacco type used: Cigarettes Smoking Status: Current Everyday Smoker Substance use?: No Alcohol Use?: No Pt feels they are or have been: No (RICHELLE MULTANI MD) Immunizations Up To Date Tetanus Booster (TDap): Less than 5yrs PED Vaccines UTD: Yes Influenza Vaccine Up-to-Date: No; Not Current First/Initial COVID19 Vaccinat: July 2020 Second COVID19 Vaccination Gunner: August 2020 Third COVID19 Vaccination Date: MAR 13 2021 (RICHELLE MULTANI MD) Seasonal Allergies Seasonal Allergies: No (RICHELLE MULTANI MD) Past Medical History Surgery/Hospitalization HX: Sepsis/SVT/UTI- Hospitalization, BILATERAL MASECTOMY, RIB SPACERS D/T MASSECTOMY. 08/17/21 cleaned extenders in both breasts at . 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: 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 Sexually Transmitted Disease: No HIV/AIDS: No Genitourinary: Yes Kidney Stones, UTI-Chronic Gastrointestinal: Yes Irritable Bowel Musculoskeletal: Yes Degenerate Disk Disease, Foot Drop, Scoliosis, Chronic Back Pain, Fractures Endocrine: No (STATES CHEMO HAS AFFECTED BLOOD SUGAR) Diabetes, Non-Insulin dep HEENT: No Loss of Vision: Bilateral Hearing Impairment: Denies Cancer: Yes Breast Did You Recieve Any Treatments: Yes What Type of Treatment Did You: Chemotherapy, Surgical Intervention Psychosocial: Yes (D.I.D.) Anxiety, PTSD, Bipolar Integumentary: No Herpes Blood Disorders: Yes (HX OF HYPERCOLAGUABLE STATE) Adverse Reaction/Blood Tranf: No (N/A) (RICHELLE MULTANI MD) Family Medical History Antiphospholipid syndrome 19 MOTHER Diabetes mellitus 19 FATHER G8 BROTHER FH: aneurysm 19 FATHER FH: lupus 19 MOTHER FHx: congestive heart failure 19 FATHER FHx: renal failure 19 MOTHER Heart murmur 19 MOTHER Lupus anticoagulant disorder 19 MOTHER Patent foramen ovale 19 FATHER Barry syndrome G8 SISTER Physical Exam Vital Signs Vital Signs - First Documented 03/10/22 17:15 Temp 36.5 Pulse 100 Resp 16 B/P (MAP) 109/46 (67) Pulse Ox 100 (MARIA ELENA MORA MD) Vital Signs Capillary Refill : Less Than 3 Seconds (RICHELLE MULTANI MD) Height, Weight, BMI Height: 5'4.00" Weight: 189lbs. 9.0oz. 85.047330wl; 40.00 BMI Method:Stated General Appearance: WD/WN, mild distress HEENT: PERRL/EOMI Cardiovascular: regular rate, rhythm, other (2+ left DP pulse) Respiratory: lungs clear, normal breath sounds, no respiratory distress, no accessory muscle use Hips: right hip non-tender, right hip normal inspection, right hip normal range of motion, right hip no evidence of injury Legs: left leg bone tenderness (left prox tibia), left leg soft tissue tenderness, left leg swelling Knees: left knee non-tender, left knee normal inspection Ankles: right ankle non-tender, right ankle normal inspection, right ankle normal range of motion, right ankle no evidence of injury; bilateral ankle other (hand ROM secondary to left tibia pain) Feet: bilateral foot non-tender, bilateral foot normal inspection, bilateral foot normal range of motion, bilateral foot no evidence of injury Neurologic/Tendon: normal sensation, normal motor functions Neurologic/Psychiatric: alert, normal mood/affect, oriented x 3 Skin: normal color, warm/dry (RICHELLE MULTANI MD) Progress/Results/Core Measures Results/Orders My Orders Orders - MARIA ELENA MORA MD Rx-Oxycodone/Apap 5-325 Mg (Rx-Percocet (03/10/22 20:00) Apixaban Tablet (Eliquis Tablet) (03/10/22 20:00) (MARIA ELENA MORA MD) Medications Given in ED Current Medications Medications Dose Ordered Sig/Diomedes Route Start Time Stop Time Status Last Admin Dose Admin Fentanyl Citrate 50 mcg ONCE ONCE IVP 03/10/22 17:30 03/10/22 17:31 DC 03/10/22 17:43 50 MCG Fentanyl Citrate 50 mcg ONCE ONCE IVP 03/10/22 18:00 03/10/22 18:01 DC 03/10/22 18:05 50 MCG Ondansetron HCl 4 mg ONCE ONCE IVP 03/10/22 17:30 03/10/22 17:31 DC 03/10/22 17:42 4 MG (MARIA ELENA MORA MD) Vital Signs/I&O 03/10/22 17:15 Temp 36.5 Pulse 100 Resp 16 B/P (MAP) 109/46 (67) Pulse Ox 100 (MARIA ELENA MORA MD) Blood Pressure Mean: 67 Diagnostic Imaging Diagonstic Imaging: Xray Comments left tib fib xray: (interpreted by me) suspect cortical disruption lateral tibial plateau/fracture (RICHELLE MULTANI MD) Diagonstic Imaging: CT Plain Films/CT/US/NM/MRI: leg Comments CT of the knee viewed by me and report reviewed. See report below: NAME: [facility] REC#: [id number] PT STATUS: REG ER : 1985 PHYSICIAN: RICHELLE MULTANI MD ADMIT DATE: 03/10/22/ER Signed Date of Exam:03/10/22 CT EXTREMITY LOWER LEFT WO INDICATION: Possible tibial plateau fracture. Injury with pain. EXAMINATION: CT of the left lower extremity without contrast 03/10/2022. FINDINGS: Correlation made to radiographs from 03/10/2022. There is a minimally comminuted fracture through the lateral tibial plateau, intra-articular in nature with minimal depression appreciated. Findings most consistent with a Schatzker 1-2 type fracture. Remaining visualized osseous structures intact. No dislocation. There is a secondary lipohemarthrosis. IMPRESSION: Intra-articular fracture of the lateral tibial plateau without significant disc depression by CT standards. Secondary lipohemarthrosis noted. Dictated by: Dictated on workstation # [id number] Dict: 03/10/221908 Trans: 03/10/221916 [facility] [id number] Interpreted by: KYA HACKETT MD Electronically signed by: KYA HACKETT MD 03/10/221916 (MARIA ELENA MORA MD) Departure Impression Primary Impression: Tibial plateau fracture, left Qualified Codes: S82.142A - Displaced bicondylar fracture of left tibia, initial encounter for closed fracture Disposition: 01 HOME, SELF-CARE Condition: Improved Departure-Patient Inst. Decision time for Depature: 19:56 (MARIA ELENA MORA MD) Ref[place]: [facility] [place]) Primary Care Physician RIDGE SUE APRN (Family) Primary Care Physician ALONSO DUNN MD,MAEGAN TEJEDA,EDMUNDO Ferrer MD Patient Instructions: Tibial Plateau Fracture Add. Discharge Instructions: Do not bear weight on your left knee. Use crutches or a walker to ambulate. Use Eliquis as prescribed to prevent blood clot. Stop Eliquis and report to care promptly if you develop any unusual bleeding from any body site. Also promptly report to the emergency room if you have any significant trauma, especially head injury while you are on Eliquis. Follow-up with an orthopedic provider soon as possible. Contact information for Dr. Posadas and Dr. Tejeda is listed below. Use Percocet as prescribed for pain control. Percocet may cause drowsiness so use with caution. Do not drive or operate machinery or make important decisions while on Percocet. Percocet may also cause constipation. You may wish to use a stool softener such as Colace while on Percocet to prevent constipation. You may also ice your knee in 20-minute intervals but avoid getting the splint wet. Leave the splint in place until you follow-up with an orthopedic provider. You should also follow-up with your oncologist and/or primary care provider to discuss your fractures and a possible bone density scan to determine if you have osteoporosis. Also discussed screening for blood clotting disorders with your oncologist. Return to care if you have any other worsening of condition that requires urgent attention. All discharge instructions reviewed with patient and/or family. Voiced understanding. Scripts Apixaban (Eliquis) 2.5 Mg Tablet 2.5 MG PO BID, #30 TAB Prov: MARIA ELENA MORA MD 03/10/22 Docusate Sodium (Colace) 100 Mg Capsule 100 MG PO DAILY, #30 CAP Prov: MARIA ELENA MORA MD 03/10/22 Oxycodone HCl/Acetaminophen (Percocet 5-325 mg Tablet) 1 Each Tablet 1 TAB PO Q4H for PAINMOD MDD 6 TABS, #30 TAB Prov: MARIA ELENA MORA MD 03/10/22 Work/School Note: Work Release Form Date Seen in the Emergency Department: N ov 30, 2 Return to Work: Mar 16, 2022 Other Restrictions Listed Below: No weight-bearing on left leg until cleared by doctor. RICHELLE MULTANI MD Mar 10, 2022 17:30 MARIA ELENA MORA MD Mar 10, 2022 19:26
--- NOTE | 2022-03-10 18:03 | Diagnostic Imaging Report ---
CLINICAL HISTORY: Fall. Left leg pain. COMPARISON: None. TECHNIQUE: 3 views of the left tibia and fibula. FINDINGS: There is suggestion of a fracture involving the lateral aspect of the tibial plateau without significant depression. Left knee lipohemarthrosis is noted. No other fractures are seen in the left tibia and fibula. IMPRESSION: 1. Fracture involving the lateral tibial plateau of the left tibia, most consistent with a Schatzker 1 fracture. Associated lipohemarthrosis is noted. Dictated by: Dictated on workstation # [id number]
[2022-03-10] MEDS ORDERED: morphine INJ 10 MG/ML 1ML (SYR OR VIAL) IVP STA (18:17)
--- NOTE | 2022-03-10 19:17 | Diagnostic Imaging Report ---
INDICATION: Possible tibial plateau fracture. Injury with pain. EXAMINATION: CT of the left lower extremity without contrast 03/10/2022. FINDINGS: Correlation made to radiographs from 03/10/2022. There is a minimally comminuted fracture through the lateral tibial plateau, intra-articular in nature with minimal depression appreciated. Findings most consistent with a Schatzker 1-2 type fracture. Remaining visualized osseous structures intact. No dislocation. There is a secondary lipohemarthrosis. IMPRESSION: Intra-articular fracture of the lateral tibial plateau without significant disc depression by CT standards. Secondary lipohemarthrosis noted. Dictated by: Dictated on workstation # [id number]
[2022-03-10] MEDS ORDERED: APIXABAN 2.5 MG (ELIQUIS) TABLET PO ONE (20:00)
[2022-03-10] MEDS ORDERED: APIX2.5T PO (20:00)
[2022-03-10] MEDS ORDERED: RX-OXYCODONE/APAP 5-325 MG #4 TAB PK PO PRN (20:00)
[2022-03-10] MEDS ORDERED: OXYC1TAB87 PO (20:00)
[2022-03-10] MEDS ORDERED: DOCU-143 PO (20:00)
[2022-03-10 21:25] VITALS: BP 119/81
== END 2022-03-10 21:25 | disposition home or self-care (01) ==
LOC: EDUNIT# 17:13 → ER 17:15
DX: S82.142A Displaced bicondylar fracture of left tibia, initial encounter for closed fracture (principal); F17.210 Nicotine dependence, cigarettes, uncomplicated; Z91.040 Latex allergy status; W18.30XA Fall on same level, unspecified, initial encounter
CPT/HCPCS: 29505; 73590; 73700

== ENCOUNTER → 2022-03-16 | Outpatient (CLI) | payer MEDICARE, MEDICAID ==
[~2022-03-16] MED LIST changes: +APIX2.5T PO
== END ==
LOC: ORTHO 10:00
PROVIDERS: ATTEND Orthopaedic Surgery
DX: S82.122A Displaced fracture of lateral condyle of left tibia, initial encounter for closed fracture (principal); M19.90 Unspecified osteoarthritis, unspecified site; D64.9 Anemia, unspecified; E11.9 Type 2 diabetes mellitus without complications; E55.9 Vitamin D deficiency, unspecified; F43.12 Post-traumatic stress disorder, chronic; E78.5 Hyperlipidemia, unspecified; Z72.0 Tobacco use; X58.XXXA Exposure to other specified factors, initial encounter

== ENCOUNTER → 2022-04-06 | Outpatient (CLI) | payer BC, MEDICAID, MEDICARE ==
--- NOTE | 2022-04-06 09:07 | Diagnostic Imaging Report ---
INDICATION: Injury, pain. COMPARISON: 03/10/2022 TECHNIQUE: 3 radiographs of the left knee dated 04/06/2022. FINDINGS: Previously noted fracture involving the lateral tibial plateau is again identified. Overall alignment appears stable from prior examination without significant depression. Minimal sclerosis is seen within the region with persistent fracture lucency remaining. No new fracture or dislocation. Moderate size knee joint effusion is identified. No suspicious radiopaque foreign body. IMPRESSION: Persistent subacute fracturing of the lateral tibial plateau without significant depression remaining in stable alignment demonstrating mild healing. No new acute osseous abnormality. Persistent moderate size knee joint effusion. Dictated by: Dictated on workstation # [id number]
== END ==
LOC: ORTHO 08:12
PROVIDERS: ATTEND Orthopaedic Surgery
DX: S82.125D Nondisplaced fracture of lateral condyle of left tibia, subsequent encounter for closed fracture with routine healing (principal); Z86.718 Personal history of other venous thrombosis and embolism; D50.9 Iron deficiency anemia, unspecified; E11.9 Type 2 diabetes mellitus without complications; E78.5 Hyperlipidemia, unspecified; E55.9 Vitamin D deficiency, unspecified; Z72.0 Tobacco use; X58.XXXD Exposure to other specified factors, subsequent encounter
CPT/HCPCS: 73562; G0463 ×2; 99203; 99213

== ENCOUNTER 2022-04-11 09:11 | Emergency (ER) | payer BC ==
[~2022-04-11] VITALS: Ht 154 cm; Wt 108.0 kg
--- NOTE | 2022-04-11 10:18 | ED Respiratory ---
General Chief Complaint: Cough/Cold/Flu Symptoms Stated Complaint: COVID +/SOA Nursing Triage Note: Pt here with cough and feeling soa after testing positive for Covid at work this morning. History of Present Illness Date Seen by Provider: Apr 11, 2022 Time Seen by Provider: 10:00 Initial Comments 36yo female with complaint of testing positive for Covid at work this morning. Symptoms started yesterday. Body aches, SOB, subjective fever. History of Breast Ca dx'd 10 months ago. Nausea currently. No diarrhea. No chest pain, no productive cough. No urinary complaints. Timing/Duration: yesterday Severity: moderate Prior Episodes/Possible Cause: illness exposure Modifying Factors: Worse With Coughing Associated Symptoms: chest pain/soreness, cough, muscle aches, nasal congestion, shortness of breath Allergies and Home Medications Allergies Coded Allergies: aprepitant (Verified Allergy, Severe, 05/14/20) PATIENT STATES COULD NOT BREATH fosaprepitant (Verified Allergy, Severe, 05/14/20) PATIENT STATES COULD NOT BREATH latex (Verified Allergy, Severe, BLISTERS, 08/24/17) penicillin (Verified Allergy, Severe, ITCHING, 08/24/17) Sulfa (Sulfonamide Antibiotics) (Verified Allergy, Unknown, RASH, 08/24/17) Uncoded Allergies: STAWBERRIES (Allergy, Mild, RASH, 09/04/20) Patient Home Medication List Home Medication List Reviewed: Yes Acetaminophen (Tylenol Extra Strength) 500 Mg Tablet, 500-1,000 MG PO Q6H PRN for PAIN-MILD (1-4), (Reported) Entered as Reported by: ZHOU WRIGHT on 07/21/20 1215 Albuterol Sulfate (Ventolin Hfa) 90 Mcg Hfa.aer.ad, 2 PUFF INH Q4H Prescribed by: EMELIA GARCIA MD on 03/01/22 0552 Apixaban (Eliquis) 2.5 Mg Tablet, 2.5 MG PO BID Prescribed by: MARIA ELENA FISHER on 03/10/221999 Aspirin/Acetaminophen/Caffeine (Excedrin Migraine Caplet) 1 Each Tablet, 2 EACH PO Q6-8HR PRN for Headache, (Reported) Entered as Reported by: ZHOU WRIGHT on 07/21/20 1215 Benzonatate (Tessalon Perles) 100 Mg Capsule, 200 MG PO TID PRN for cough Prescribed by: RICHELLE MULTANI on 04/11/22 1101 Calcium Carbonate (Tums Ultra) 400 Mg Tab.chew, 400-800 MG PO Q6H PRN for INDIGESTION, (Reported) Entered as Reported by: ZHOU WRIGHT on 07/21/20 1215 Cetirizine HCl (Zyrtec) 10 Mg Tablet, 10 MG PO DAILY PRN for ALLERGY SYMPTOMS, (Reported) Entered as Reported by: ZHOU WRIGHT on 07/21/20 1215 Cholecalciferol (Vitamin D3) (Vitamin D3) 1,250 Mcg Capsule, 1,250 MCG PO FRI, (Reported) Entered as Reported by: ZHOU WRIGHT on 01/08/21 153 Cyclosporine (Restasis) 1 Each Droperette, 1 DROP OU BID, (Reported) Entered as Reported by: ZHOU WRIGHT on 07/21/20 121 Docusate Sodium (Colace) 100 Mg Capsule, 100 MG PO DAILY Prescribed by: MARIA ELENA FISHER on 03/10/221999 Gabapentin (Neurontin) 300 Mg Capsule, 300 MG PO HS PRN for PAIN-BREAKTHROUGH, (Reported) Entered as Reported by: ZHOU WRIGHT on 01/08/21 153 Hydrocodone Bit/Acetaminophen (HYDROcodone/APAP 5 MG/325 MG TAB) 1 Tab Tab, 1-2 TAB PO Q4H PRN for PAIN-MODERATE (5-7) Prescribed by: VALERIA GUILLERMO on 05/08/21 0644 Hydrocodone/Acetaminophen (Hydrocodone-Acetamin 5-325 mg) 5 Mg-325 Mg Tablet, 1 TAB PO Q4H PRN for PAIN-MODERATE (5-7) Prescribed by: JUAN POZO on 09/03/21 1549 Hydrocodone/Acetaminophen (Hydrocodone-Acetamin 5-325 mg) 5 Mg-325 Mg Tablet, 1 TAB PO Q4H PRN for PAIN-MODERATE (5-7) Prescribed by: JOEL VALENTE on 12/23/21 1544 Hydrocodone/Acetaminophen (Hydrocodone-Acetamin 5-325 mg) 5 Mg-325 Mg Tablet, 1 TAB PO Q6H PRN for PAIN-MODERATE (5-7) Prescribed by: RICHELLE MULTANI on 04/11/22 1102 Levofloxacin (Levofloxacin) 500 Mg Tablet, 500 MG PO DAILY Prescribed by: JOEL VALENTE on 12/23/21 1246 Lurasidone HCl (Latuda) 80 Mg Tablet, 80 MG PO 1800 W/MEAL, (Reported) Entered as Reported by: ZHOU WRIGHT on 09/04/20 1047 Metoprolol Succinate (Metoprolol Succinate) 50 Mg Tab.er.24h, 50 MG PO BID, (Reported) Entered as Reported by: ZHOU WRIGHT on 09/04/20 104 Ondansetron (Ondansetron Odt) 4 Mg Tab.rapdis, 4 MG SL Q8H PRN for NAUSEA/VOMITING Prescribed by: RICHELLE MULTANI on 04/11/22 1101 Ondansetron HCl (Ondansetron HCl) 8 Mg Tablet, 8 MG PO Q8H PRN for NAUSEA/VOMITING-1ST LINE, (Reported) Entered as Reported by: ZHOU WRIGHT on 07/21/20 1215 Oxycodone HCl/Acetaminophen (Percocet 5-325 mg Tablet) 1 Each Tablet, 1 TAB PO Q4H Prescribed by: MARIA ELENA FISHER on 03/10/222000 Pantoprazole Sodium (Pantoprazole Sodium) 40 Mg Tablet.dr, 40 MG PO BID, (Reported) Entered as Reported by: ZHOU WRIGHT on 07/21/20 121 Prednisone (Prednisone) 50 Mg Tab, 50 MG PO DAILY Prescribed by: EMELIA GARCIA MD on 03/01/22 0552 Sorbitol Solution (Sorbitol) 1 Ml Solution, 15-30 ML PO TID PRN for CONSTIPATION, (Reported) Entered as Reported by: ZHOU WRIGHT on 07/21/20 1215 Sucralfate (Sucralfate) 1 Gm Tablet, 1 GM PO QID PRN for ULCERS, (Reported) Entered as Reported by: ZHOU WRIGHT on 07/21/20 1215 Tizanidine HCl (Tizanidine HCl) 2 Mg Tablet, 2 MG PO BID PRN for MUSCLE SPASMS, (Reported) Entered as Reported by: ZHOU WRIGHT on 01/08/21 1534 Discontinued Medications Benzonatate (Tessalon Perles) 100 Mg Capsule, 200 MG PO TID PRN for cough Prescribed by: RICHELLE MULTANI on 04/11/22 1043 Ondansetron (Ondansetron Odt) 4 Mg Tab.rapdis, 4 MG SL Q8H PRN for NAUSEA/VOMITING Prescribed by: RICHELLE MULTANI on 04/11/22 1043 Review of Systems Review of Systems Constitutional: see HPI, malaise, weakness EENTM: nose congestion Respiratory: cough, short of breath Cardiovascular: no symptoms reported Gastrointestinal: nausea (due to cough) Genitourinary: no symptoms reported Musculoskeletal: muscle cramps Skin: no symptoms reported All Other Systems Reviewed Negative Unless Noted: Yes Past Yylqhyg-Jsryhr-Jvdpru Hx Immunizations Up To Date Tetanus Booster (TDap): Less than 5yrs PED Vaccines UTD: Yes First/Initial COVID19 Vaccinat: July 2020 Second COVID19 Vaccination Gunner: August 2020 Third COVID19 Vaccination Date: MAR 13 2021 Seasonal Allergies Seasonal Allergies: No Past Medical History Surgery/Hospitalization HX: Sepsis/SVT/UTI- Hospitalization, BILATERAL MASECTOMY, RIB SPACERS D/T MASSECTOMY. 08/17/21 cleaned extenders in both breasts at . 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 Disorders: Ovarian Cyst ANALYSIS INTER[employer] History: 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 Sexually Transmitted Disease: No HIV/AIDS: No Genitourinary: Yes Kidney Stones, UTI-Chronic Gastrointestinal: Yes Irritable Bowel Musculoskeletal: Yes Degenerate Disk Disease, Foot Drop, Scoliosis, Chronic Back Pain, Fractures Endocrine: No (STATES CHEMO HAS AFFECTED BLOOD SUGAR) Diabetes, Non-Insulin dep HEENT: No Loss of Vision: Bilateral Hearing Impairment: Denies Cancer: Yes Breast Did You Recieve Any Treatments: Yes What Type of Treatment Did You: Chemotherapy, Surgical Intervention Psychosocial: Yes (D.I.D.) Anxiety, PTSD, Bipolar Integumentary: No Herpes Blood Disorders: Yes (HX OF HYPERCOLAGUABLE STATE) Adverse Reaction/Blood Tranf: No (N/A) Family Medical History Antiphospholipid syndrome 19 MOTHER Diabetes mellitus 19 FATHER G8 BROTHER FH: aneurysm 19 FATHER FH: lupus 19 MOTHER FHx: congestive heart failure 19 FATHER FHx: renal failure 19 MOTHER Heart murmur 19 MOTHER Lupus anticoagulant disorder 19 MOTHER Patent foramen ovale 19 FATHER Barry syndrome G8 SISTER Physical Exam Vital Signs - First Documented 04/11/22 09:33 Temp 37.1 Pulse 99 Resp 20 B/P (MAP) 118/81 (93) Pulse Ox 99 O2 Delivery Room Air Capillary Refill : Less Than 3 Seconds Height: 5'4.00" Weight: 189lbs. 9.0oz. 85.463191nm; 45.00 BMI Method:Stated General Appearance: WD/WN, no apparent distress, obese Eyes: Bilateral Eye Normal Inspection Respiratory: lungs clear, normal breath sounds, no respiratory distress, no accessory muscle use Cardiovascular: regular rate, rhythm Extremities: normal range of motion, other (left leg brace) Neurologic/Psychiatric: alert, normal mood/affect, oriented x 3 Skin: normal color, warm/dry Progress/Results/Core Measures Suspected Sepsis SIRS Temperature: Pulse: 99 Respiratory Rate: 20 Blood Pressure 118 /81 Mean: 93 Results/Orders My Orders Orders - RICHELLE MULTAIN MD Chest 1 View, Ap/Pa Only (04/11/22 10:14) Ondansetron Oral Dissolve Tab (Zofran (04/11/22 10:30) Medications Given in ED Vital Signs/I&O 04/11/22 04/11/22 09:33 11:14 Temp 37.1 37.1 Pulse 99 99 Resp 20 20 B/P (MAP) 118/81 (93) 118/81 Pulse Ox 99 99 O2 Delivery Room Air Room Air Capillary Refill : Less Than 3 Seconds Blood Pressure Mean: 93 Diagnostic Imaging Diagonstic Imaging: Xray Plain Films/CT/US/NM/MRI: chest Comments [facility], [place] NAME: CARLYEMILIANODIAZMOO HOUSTONCARMINE [facility] REC#: [id number] PT STATUS: REG ER : 1985 PHYSICIAN: RICHELLE MULTANI MD ADMIT DATE: 04/11/22/ER Signed Date of Exam:04/11/22 CHEST 1 VIEW, AP/PA ONLY Indication: Cough Portable chest 10:08 AM Right IJ Port-A-Cath tip projects over the SVC. Heart size and pulmonary vascularity are normal. Lungs are clear. There are no effusions or pneumothoraces. IMPRESSION: No acute abnormalities in the chest Dictated by: Dictated on workstation # [id number] Dict: 04/11/22 1027 Trans: 04/11/22 1027 TCB [id number] Interpreted by: VALERIA MATTHEWS MD Electronically signed by: VALERIA MATTHEWS MD 04/11/22 1027 Departure Impression Primary Impression: COVID-19 Additional Impression: Cough in adult Disposition: HOME, SELF-CARE Condition: Stable Departure-Patient Inst. Decision time for Depature: 10:41 Referrals: [facility] (PCP) Primary Care Physician RIDGE SUE APRN (Family) Primary Care Physician Add. Discharge Instructions: Drink plenty of fluids to stay well-hydrated. Zofran as needed for nausea. Tessalon for cough up to 3 times a day. Hydrocodone 5mg every 6 hours as needed for pain. Continue your other routine daily medications. Return to the emergency department for any worsening shortness of breath, high fever, vomiting where you cannot hold down your medications. Scripts Hydrocodone/Acetaminophen (Hydrocodone-Acetamin 5-325 mg) 5 Mg-325 Mg Tablet 1 TAB PO Q6H PRN for PAIN-MODERATE (5-7), #5 TAB Prov: RICHELLE MULTANI MD 04/11/22 Ondansetron (Ondansetron Odt) 4 Mg Tab.rapdis 4 MG SL Q8H PRN for NAUSEA/VOMITING, #10 TAB Prov: RICHELLE MULTANI MD 04/11/22 Benzonatate (TESSALON PERLES) 100 Mg Capsule 200 MG PO TID PRN for cough, #30 CAP Prov: RICHELLE MULTANI MD 04/11/22 Copy Copies To 1: TU HARRIS KATHRYN M MD Apr 11, 2022 10:18
--- NOTE | 2022-04-11 10:28 | Diagnostic Imaging Report ---
Indication: Cough Portable chest 10:08 AM Right IJ Port-A-Cath tip projects over the SVC. Heart size and pulmonary vascularity are normal. Lungs are clear. There are no effusions or pneumothoraces. IMPRESSION: No acute abnormalities in the chest Dictated by: Dictated on workstation # [id number]
[2022-04-11] MEDS ORDERED: ONDANSETRON 4 MG (ZOFRAN) ORAL DISSOLVE TAB PO ONE (10:30)
[2022-04-11] MEDS ORDERED: ONDA4TAB11 SL ×2 (10:43→11:01)
[2022-04-11] MEDS ORDERED: BENZ100C18 PO ×2 (10:43→11:01)
[2022-04-11] MEDS ORDERED: ACHD5005 PO (11:01)
[2022-04-11 11:14] VITALS: BP 118/81
== END 2022-04-11 11:14 | disposition home or self-care (01) ==
LOC: EDUNIT# 09:11 → ER 09:14
DX: U07.1 COVID-19 (principal); R05.9 Cough, unspecified; R09.81 Nasal congestion; R07.9 Chest pain, unspecified; R06.02 Shortness of breath
CPT/HCPCS: 71045

== ENCOUNTER → 2022-05-11 | Outpatient (CLI) | payer BC ==
[~2022-05-11] MED LIST changes: +BENZ100C18 PO; +ONDA4TAB11 SL
--- NOTE | 2022-05-11 10:53 | Diagnostic Imaging Report ---
EXAMINATION: Left knee radiographs, 3 views. COMPARISON: Left knee radiographs April 06, 2022. HISTORY: 36-year-old female, left knee pain. Recent fall. History of prior fracture. FINDINGS: There is a lucency at the level of the lateral tibial plateau which is also present on the prior exam and consistent with prior lateral tibial plateau fracture. Overall alignment of the fracture is unchanged. There is no large knee joint effusion. No new fracture is identified. The joint spaces are well preserved. IMPRESSION: 1. Redemonstrated fracture of the lateral tibial plateau with unchanged appearance since April 06, 2022. There is a persistent visible fracture line. 2. No new fracture. 3. No large knee joint effusion. Dictated by: Dictated on workstation # [id number]
== END ==
LOC: ORTHO 08:15
PROVIDERS: ATTEND Orthopaedic Surgery
DX: Z47.89 Encounter for other orthopedic aftercare (principal); S82.202D Unspecified fracture of shaft of left tibia, subsequent encounter for closed fracture with routine healing; X58.XXXD Exposure to other specified factors, subsequent encounter
CPT/HCPCS: 73562; G0463; 99213

== ENCOUNTER 2022-06-09 14:01 | Emergency (ER) | payer BC ==
[~2022-06-09] VITALS: Ht 154.9 cm; Wt 87.5 kg
[2022-06-09] MEDS ORDERED: fentaNYL INJ 100 MCG/2 ML AMP IVP ONE (15:30)
--- NOTE | 2022-06-09 16:02 | ED General ---
General Chief Complaint: General Problems/Pain Stated Complaint: RT SIDE SWELLING | Nursing Triage Note: PT AMB TO ED BY POV WITH C/O RUE PAIN/SWELLING, BILAT LE SWELLING. PT REPORTS SHE BEGAN HAVING PAIN TO THE TOUCH AND PAIN WITH MOVEMENT IN R WRIST AND UNDER R ARM APPROX 1 WEEK AGO. PT ALSO REPORTS BILAT LE AND RUE SWELLING OVER THE LAST WEEK. PT DENIES INJURY. Source of Information: Patient Exam Limitations: No Limitations (JUDITH BOND APRN) History of Present Illness Date Seen by Provider: Jun 09, 2022 Time Seen by Provider: 15:16 Initial Comments 36-year-old female presents with right arm pain and swelling for the last week. Reports pain in her right wrist and under her right arm near the axilla. States she has a history of lymphadedema, and is wearing a sleeve that she purchased, she has not had a sleeve fitted yet. She also reports bilateral lower leg swelling for about the past week. She has had a history of a DVT in 2014. She does not currently take any blood thinners. She has a history of breast cancer with bilateral mastectomy in 2020. Her last chemo was 2 years ago. She her last surgery was a hysterectomy in September 2021. Denies any chest pain or shor tness of air. (JUDITH BOND APRN) Allergies and Home Medications Allergies Coded Allergies: aprepitant (Verified Allergy, Severe, 05/14/20) PATIENT STATES COULD NOT BREATH fosaprepitant (Verified Allergy, Severe, 05/14/20) PATIENT STATES COULD NOT BREATH latex (Verified Allergy, Severe, BLISTERS, 08/24/17) penicillin (Verified Allergy, Severe, ITCHING, 08/24/17) Sulfa (Sulfonamide Antibiotics) (Verified Allergy, Unknown, RASH, 08/24/17) Uncoded Allergies: STAWBERRIES (Allergy, Mild, RASH, 09/04/20) Patient Home Medication List Home Medication List Reviewed: Yes (JUDITH BOND APRN) Acetaminophen (Tylenol Extra Strength) 500 Mg Tablet, 500-1,000 MG PO Q6H PRN for PAIN-MILD (1-4), (Reported) Entered as Reported by: ZHOU WRIGHT on 07/21/20 1215 Albuterol Sulfate (Ventolin Hfa) 90 Mcg Hfa.aer.ad, 2 PUFF INH Q4H Prescribed by: EMELIA GARCIA MD on 03/01/22 0552 Apixaban (Eliquis) 2.5 Mg Tablet, 2.5 MG PO BID Prescribed by: MARIA ELENA FISHER on 03/10/221999 Aspirin/Acetaminophen/Caffeine (Excedrin Migraine Caplet) 1 Each Tablet, 2 EACH PO Q6-8HR PRN for Headache, (Reported) Entered as Reported by: ZHOU WRIGHT on 07/21/20 1215 Benzonatate (Tessalon Perles) 100 Mg Capsule, 200 MG PO TID PRN for cough Prescribed by: RICHELLE MULTANI on 04/11/22 1101 Calcium Carbonate (Tums Ultra) 400 Mg Tab.chew, 400-800 MG PO Q6H PRN for INDIGESTION, (Reported) Entered as Reported by: HZOU WRIGHT on 07/21/20 1215 Cetirizine HCl (Zyrtec) 10 Mg Tablet, 10 MG PO DAILY PRN for ALLERGY SYMPTOMS, (Reported) Entered as Reported by: ZHOU WRIGHT on 07/21/20 1215 Cholecalciferol (Vitamin D3) (Vitamin D3) 1,250 Mcg Capsule, 1,250 MCG PO FRI, (Reported) Entered as Reported by: ZHOU WRIGHT on 01/08/21 153 Cyclosporine (Restasis) 1 Each Droperette, 1 DROP OU BID, (Reported) Entered as Reported by: ZHOU WRIGHT on 07/21/20 1215 Docusate Sodium (Colace) 100 Mg Capsule, 100 MG PO DAILY Prescribed by: MARIA ELENA FISHER on 03/10/221999 Gabapentin (Neurontin) 300 Mg Capsule, 300 MG PO HS PRN for PAIN-BREAKTHROUGH, (Reported) Entered as Reported by: ZHOU WRIGHT on 01/08/21 1534 Hydrocodone Bit/Acetaminophen (HYDROcodone/APAP 5 MG/325 MG TAB) 1 Tab Tab, 1-2 TAB PO Q4H PRN for PAIN-MODERATE (5-7) Prescribed by: VALERIA GUILLERMO on 05/08/21 0644 Hydrocodone/Acetaminophen (Hydrocodone-Acetamin 5-325 mg) 5 Mg-325 Mg Tablet, 1 TAB PO Q4H PRN for PAIN-MODERATE (5-7) Prescribed by: JUAN POZO on 09/03/21 1549 Hydrocodone/Acetaminophen (Hydrocodone-Acetamin 5-325 mg) 5 Mg-325 Mg Tablet, 1 TAB PO Q4H PRN for PAIN-MODERATE (5-7) Prescribed by: JOEL VALENTE on 12/23/21 1544 Hydrocodone/Acetaminophen (Hydrocodone-Acetamin 5-325 mg) 5 Mg-325 Mg Tablet, 1 TAB PO Q6H PRN for PAIN-MODERATE (5-7) Prescribed by: RICHELLE MULTANI on 04/11/22 1102 Levofloxacin (Levofloxacin) 500 Mg Tablet, 500 MG PO DAILY Prescribed by: JOEL VALENTE on 12/23/21 1246 Lurasidone HCl (Latuda) 80 Mg Tablet, 80 MG PO 1800 W/MEAL, (Reported) Entered as Reported by: ZHOU WRIGHT on 09/04/20 1047 Metoprolol Succinate (Metoprolol Succinate) 50 Mg Tab.er.24h, 50 MG PO BID, (Reported) Entered as Reported by: ZHOU WRIGHT on 09/04/20 1047 Ondansetron (Ondansetron Odt) 4 Mg Tab.rapdis, 4 MG SL Q8H PRN for NAUSEA/VOMITING Prescribed by: RICHELLE MULTANI on 04/11/22 1101 Ondansetron HCl (Ondansetron HCl) 8 Mg Tablet, 8 MG PO Q8H PRN for NAUSEA/VOMITING-1ST LINE, (Reported) Entered as Reported by: ZHOU WRIGHT on 07/21/20 1215 Oxycodone HCl/Acetaminophen (Percocet 5-325 mg Tablet) 1 Each Tablet, 1 TAB PO Q4H Prescribed by: MARIA ELENA FISHER on 03/10/222000 Oxycodone HCl/Acetaminophen (Percocet 5-325 mg Tablet) 5 Mg-325 Mg Tablet, 1 TAB PO Q6H PRN for PAIN-MODERATE Prescribed by: Judith Bond on 06/09/22 1818 Pantoprazole Sodium (Pantoprazole Sodium) 40 Mg Tablet.dr, 40 MG PO BID, (Reported) Entered as Reported by: ZHOU WRIGHT on 07/21/20 1215 Prednisone (Prednisone) 50 Mg Tab, 50 MG PO DAILY Prescribed by: EMELIA GARCIA MD on 03/01/22 0552 Sorbitol Solution (Sorbitol) 1 Ml Solution, 15-30 ML PO TID PRN for CONSTIPATION, (Reported) Entered as Reported by: ZHOU WRIGHT on 07/21/20 1215 Sucralfate (Sucralfate) 1 Gm Tablet, 1 GM PO QID PRN for ULCERS, (Reported) Entered as Reported by: ZHOU WRIGHT on 07/21/20 1215 Tizanidine HCl (Tizanidine HCl) 2 Mg Tablet, 2 MG PO BID PRN for MUSCLE SPASMS, (Reported) Entered as Reported by: ZHOU WRIGHT on 01/08/21 1534 Review of Systems Review of Systems Constitutional: see HPI (JUDITH BOND APRN) Past Burjwpj-Qtogdi-Pehkou Hx Patient Social History Tobacco Use?: Yes Tobacco type used: Cigarettes Smoking Status: Current Everyday Smoker Use of E-Cig and/or Vaping dev: No Substance use?: No Alcohol Use?: No Pt feels they are or have been: No (JUDITH BOND APRN) Immunizations Up To Date Tetanus Booster (TDap): Less than 5yrs PED Vaccines UTD: Yes Influenza Vaccine Up-to-Date: No; Not Current First/Initial COVID19 Vaccinat: July 2020 Second COVID19 Vaccination Gunner: August 2020 Third COVID19 Vaccination Date: MAR 13 2021 (JUDITH BOND APRN) Seasonal Allergies Seasonal Allergies: No (JUDITH BOND APRN) Past Medical History Surgery/Hospitalization HX: Sepsis/SVT/UTI- Hospitalization, BILATERAL MASECTOMY, RIB SPACERS D/T MASSECTOMY. 08/17/21 cleaned extenders in both breasts at . 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 History: 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 Sexually Transmitted Disease: No HIV/AIDS: No Genitourinary: Yes Kidney Stones, UTI-Chronic Gastrointestinal: Yes Irritable Bowel Musculoskeletal: Yes Degenerate Disk Disease, Foot Drop, Scoliosis, Chronic Back Pain, Fractures Endocrine: No (STATES CHEMO HAS AFFECTED BLOOD SUGAR) Diabetes, Non-Insulin dep HEENT: No Loss of Vision: Bilateral Hearing Impairment: Denies Cancer: Yes Breast Did You Recieve Any Treatments: Yes What Type of Treatment Did You: Chemotherapy, Surgical Intervention Psychosocial: Yes (D.I.D.) Anxiety, PTSD, Bipolar Integumentary: No Herpes Blood Disorders: Yes (HX OF HYPERCOLAGUABLE STATE) Adverse Reaction/Blood Tranf: No (N/A) (JUDITH BOND APRN) Family Medical History Antiphospholipid syndrome 19 MOTHER Diabetes mellitus 19 FATHER G8 BROTHER FH: aneurysm 19 FATHER FH: lupus 19 MOTHER FHx: congestive heart failure 19 FATHER FHx: renal failure 19 MOTHER Heart murmur 19 MOTHER Lupus anticoagulant disorder 19 MOTHER Patent foramen ovale 19 FATHER Barry syndrome G8 SISTER Physical Exam Vital Signs Vital Signs - First Documented 06/09/22 14:22 Temp 36.5 Pulse 108 Resp 18 B/P (MAP) 130/87 (101) Pulse Ox 99 O2 Delivery Room Air (MARIA ELENA MORA MD) Vital Signs Capillary Refill : Less Than 3 Seconds (JUDITH BOND APRN) Height, Weight, BMI Height: 5'4.00" Weight: 189lbs. 9.0oz. 85.535179fl; 36.00 BMI Method:Stated General Appearance: No Apparent Distress, WD/WN Neck: Normal Inspection, Supple Respiratory: Lungs Clear, Normal Breath Sounds, No Accessory Muscle Use, No Respiratory Distress Cardiovascular: Regular Rate, Rhythm, No Edema (Bilateral lower extremities and right arm swollen per patient, no edema, nonpitting), No Gallop, No JVD, No Murmur Extremity: Normal Range of Motion, Swelling (Not edematous, nonpitting) Neurologic/Psychiatric: Alert, Oriented x3, No Motor/Sensory Deficits Skin: Normal Color, Warm/Dry (JUDITH BOND APRN) Progress/Results/Core Measures Suspected Sepsis SIRS Temperature: Pulse: 108 Respiratory Rate: 18 Laboratory Tests 06/09/22 17:00: White Blood Count 7.7 Blood Pressure 130 /87 Mean: 101 Laboratory Tests 06/09/22 17:00: Creatinine 0.67, Platelet Count 375, Total Bilirubin 0.4 (JUDITH BOND APRN) Results/Orders Lab Results Laboratory Tests Test 06/09/22 17:00 Range/Units White Blood Count 7.7 4.3-11.0 10^3/uL Red Blood Count 4.33 3.80-5.11 10^6/uL Hemoglobin 11.4 L 11.5-16.0 g/dL Hematocrit 36 35-52 % Mean Corpuscular Volume 82 80-99 fL Mean Corpuscular Hemoglobin 26 25-34 pg Mean Corpuscular Hemoglobin Concent 32 32-36 g/dL Red Cell Distribution Width 16.1 H 10.0-14.5 % Platelet Count 375 130-400 10^3/uL Mean Platelet Volume 9.7 9.0-12.2 fL Immature Granulocyte % (Auto) 0 % Neutrophils (%) (Auto) 53 42-75 % Lymphocytes (%) (Auto) 39 12-44 % Monocytes (%) (Auto) 7 0-12 % Eosinophils (%) (Auto) 1 0-10 % Basophils (%) (Auto) 1 0-10 % Neutrophils # (Auto) 4.1 1.8-7.8 10^3/uL Lymphocytes # (Auto) 3.0 1.0-4.0 10^3/uL Monocytes # (Auto) 0.5 0.0-1.0 10^3/uL Eosinophils # (Auto) 0.1 0.0-0.3 10^3/uL Basophils # (Auto) 0.0 0.0-0.1 10^3/uL Immature Granulocyte # (Auto) 0.0 0.0-0.1 10^3/uL D-Dimer <= 0.27 0.00-0.49 UG/ML Sodium Level 139 135-145 MMOL/L Potassium Level 4.1 3.6-5.0 MMOL/L Chloride Level 108 H 98-107 MMOL/L Carbon Dioxide Level 24 21-32 MMOL/L Anion Gap 7 5-14 MMOL/L Blood Urea Nitrogen 12 7-18 MG/DL Creatinine 0.67 0.60-1.30 MG/DL Estimat Glomerular Filtration Rate 116 BUN/Creatinine Ratio 18 Glucose Level 103 70-105 MG/DL Calcium Level 9.0 8.5-10.1 MG/DL Corrected Calcium 9.2 8.5-10.1 MG/DL Total Bilirubin 0.4 0.1-1.0 MG/DL Aspartate Amino Transf (AST/SGOT) 11 5-34 U/L Alanine Aminotransferase (ALT/SGPT) 12 0-55 U/L Alkaline Phosphatase 53 40-136 U/L Total Protein 6.9 6.4-8.2 GM/DL Albumin 3.8 3.2-4.5 GM/DL (MARIA ELENA MORA MD) Medications Given in ED Current Medications Medications Dose Ordered Sig/Diomedes Route Start Time Stop Time Status Last Admin Dose Admin Heparin Sodium (Porcine) 300 unit ONCE ONCE IV 06/09/22 18:15 06/09/22 18:16 DC 06/09/22 18:26 300 UNIT (MARIA ELENA MORA MD) Vital Signs/I&O 06/09/22 06/09/22 14:22 18:33 Temp 36.5 Pulse 108 90 Resp 18 18 B/P (MAP) 130/87 (101) 127/85 Pulse Ox 99 99 O2 Delivery Room Air Room Air (MARIA ELENA MORA MD) Vital Signs/I&O Capillary Refill : Less Than 3 Seconds (JUDITH BOND APRN) Blood Pressure Mean: 101 Progress Note #1: Time: 15:30 Progress Note Patient seen and evaluated, resting company bed, no acute distress. Based on exam and symptoms, concern for DVT or lymphedema. Work-up initiated including CBC, CMP, D-dimer, ultrasound bilateral legs, ultrasound of right arm. Wrist x- ray and shoulder x-ray also ordered. Fentanyl ordered for pain. Progress Note #2: Time: 18:05 Progress Note Labs and imaging reviewed. CBC mostly normal, slightly low hemoglobin at 11.4, this is consistent with previous hemoglobin. CMP mostly normal, slightly elevated chloride at 108. D-dimer negative. X-ray of wrist and shoulder negative for any abnormalities. Dopplers negative for DVT of the leg or arm. Results discussed with patient. Informed that this swelling is likely due to her lymphedema. Instructed her to follow-up to get a sleeve fitted. Discharge instructions and return precautions provided. (JUDITH BOND APRN) Diagnostic Imaging Diagonstic Imaging: Xray Plain Films/CT/US/NM/MRI: other (wrist) Comments [facility] [place], [place] NAME: COLTON ORTIZ [facility] REC#: [id number] PT STATUS: REG ER : 1985 PHYSICIAN: JUDITH BOND APRN ADMIT DATE: 06/09/22/ER Signed Date of Exam:06/09/22 WRIST, RIGHT, 3 VIEWS OR MORE INDICATION: Wrist pain. FINDINGS: Three-view right wrist shows no fracture, dislocation, or acute appearing articular irregularity. IMPRESSION: Unremarkable three-view right wrist. Dictated by: Dictated on workstation # [id number] Dict: 06/09/22 1617 Trans: 06/09/221 [id number] Interpreted by: PHYLLIS PEREYRA Electronically signed by: PHYLLIS PEREYRA 06/09/22 171 Diagonstic Imaging: Xray Plain Films/CT/US/NM/MRI: other (Shoulder) Comments [facility], [place] NAME: COLTON ORTIZ [facility] REC#: [id number] PT STATUS: REG ER : 1985 PHYSICIAN: JUDITH BOND APRN ADMIT DATE: 06/09/22/ER Signed Date of Exam:06/09/22 SHOULDER, RIGHT, 3 VIEWS INDICATION: Shoulder pain. TECHNIQUE: A three-view right shoulder was performed. FINDINGS: No fracture, dislocation, or acute articular irregularity. There is a tunneled catheter via the right IJ projecting over the lower SVC. There are surgical changes about the right breast and axilla. No suspicious lytic or sclerotic bone lesion. IMPRESSION: Unremarkable right shoulder radiographs. Dictated by: Dictated on workstation # [id number] Dict: 06/09/22 1609 Trans: 06/09/221710 [id number] Interpreted by: PHYLLIS PEREYRA Electronically signed by: PHYLLIS PEREYRA 06/09/22 1711 Diagonstic Imaging: Ultrasound Plain Films/CT/US/NM/MRI: leg Comments [facility] [place], [place] NAME: COLTON ORTIZ [facility] REC#: [id number] PT STATUS: REG ER : 1985 PHYSICIAN: JUDITH BOND APRN ADMIT DATE: 06/09/22/ER Signed Date of Exam:06/09/22 US VENOUS LOWER EXT KATERINA INDICATION: Bilateral leg swelling COMPARISON: None TECHNIQUE: Duplex, matthew-scale and color-flow imaging of the bilateral lower extremity venous system was performed. FINDINGS: The common femoral vein, superficial femoral vein, profunda femoris, and popliteal veins are normal. These vessels show normal compressibility, color flow, and doppler augmentation. The deep calf veins, although not very well seen, demonstrate no distinct intraluminal thrombus. IMPRESSION: Negative venous Doppler of the bilateral lower extremities. Dictated by: Dictated on workstation # [id number] Dict: 06/09/22 [facility] Trans: 06/09/22 1718 CVB [id number] Interpreted by: ROSALINA TAN MD Electronically signed by: ROSALINA TAN MD 06/09/22 1718 Diagonstic Imaging: Ultrasound Plain Films/CT/US/NM/MRI: other (I am) Comments [facility] [place] [place] NAME: COLTON ORTIZ [facility] REC#: [id number] PT STATUS: REG ER : 1985 PHYSICIAN: JUDITH BOND APRN ADMIT DATE: 06/09/22/ER Signed Date of Exam:06/09/22 US VENOUS LOWER EXT KATERINA INDICATION: Bilateral leg swelling COMPARISON: None TECHNIQUE: Duplex, matthew-scale and color-flow imaging of the bilateral lower extremity venous system was performed. FINDINGS: The common femoral vein, superficial femoral vein, profunda femoris, and popliteal veins are normal. These vessels show normal compressibility, color flow, and doppler augmentation. The deep calf veins, although not very well seen, demonstrate no distinct intraluminal thrombus. IMPRESSION: Negative venous Doppler of the bilateral lower extremities. Dictated by: Dictated on workstation # [id number] Dict: 06/09/22 1640 Trans: 06/09/22 1718 [facility] [id number] Interpreted by: ROSALINA TAN MD Electronically signed by: ROSALINA TAN MD 06/09/22 1718 (JUDITH BOND APRN) Departure Impression Primary Impression: Swelling Disposition: 01 HOME, SELF-CARE Condition: Stable Departure-Patient Inst. Decision time for Depature: 18:13 (JUDITH BOND APRN) Referrals: RIDGE SUE APRN (PCP) Primary Care Physician [facility] (Family) Primary Care Physician Patient Instructions: Swelling Add. Discharge Instructions: You do not have a blood clot in your arm or legs. The swelling in your arm is likely due to your lymphedema. Follow-up to get a sleeve fitted for your arm. You may wear a wrist splint as needed for the pain in your wrist. Follow-up with your primary care provider. Return for chest pain, shortness of air, or any other new, concerning, or worsening symptoms. All discharge instructions reviewed with patient and/or family. Voiced understanding. Scripts Oxycodone HCl/Acetaminophen (Percocet 5-325 mg Tablet) 5 Mg-325 Mg Tablet 1 TAB PO Q6H PRN for PAIN-MODERATE MDD 6 for 7 Days, #20 TAB 0 Refills Prov: JUDITH BOND APRN 06/09/22 Work/School Note: Work Release Form Date Seen in the Emergency Department: Jun 09, 2022 Return to Work: Jun 10, 2022 Restrictions: No Restrictions ATTENDING PHYSICIAN NOTE: I was physically present as attending physician in the emergency department during the care of this patient, but I was not directly involved in the decision making or delivery of care for this patient. (MARIA ELENA MORA MD) JUDITH BOND APRN Jun 09, 2022 16:02 MARIA ELENA MORA MD Jun 10, 2022 06:20
--- NOTE | 2022-06-09 16:12 | Diagnostic Imaging Report ---
INDICATION: Shoulder pain. TECHNIQUE: A three-view right shoulder was performed. FINDINGS: No fracture, dislocation, or acute articular irregularity. There is a tunneled catheter via the right IJ projecting over the lower SVC. There are surgical changes about the right breast and axilla. No suspicious lytic or sclerotic bone lesion. IMPRESSION: Unremarkable right shoulder radiographs. Dictated by: Dictated on workstation # [id number]
--- NOTE | 2022-06-09 16:22 | Diagnostic Imaging Report ---
INDICATION: Wrist pain. FINDINGS: Three-view right wrist shows no fracture, dislocation, or acute appearing articular irregularity. IMPRESSION: Unremarkable three-view right wrist. Dictated by: Dictated on workstation # [id number]
--- NOTE | 2022-06-09 16:44 | Diagnostic Imaging Report ---
INDICATION: Swelling and pain. FINDINGS: Right upper extremity deep and superficial venous system is widely patent. Normal compressibility, waveforms and color Doppler flow present. IMPRESSION: Negative for venous thrombus. Dictated by: Dictated on workstation # [id number]
[2022-06-09 17:14] LABS: BASOPHILS % (AUTO) 1 % (0-10); EOSINOPHILS # (AUTO) 0.1 10^3/uL (0.0-0.3); EOSINOPHILS % (AUTO) 1 % (0-10); HEMATOCRIT 36 % (35-52); HEMOGLOBIN 11.4 g/dL (11.5-16.0); LYMPHOCYTES % (AUTO) 39 % (12-44); MEAN CORPUSCULAR HEMOGLOBIN 26 pg (25-34); MEAN CORPUSCULAR HGB CONC 32 g/dL (32-36); MEAN CORPUSCULAR VOLUME 82 fL (80-99); MEAN PLATELET VOLUME 9.7 fL (9.0-12.2); MONOCYTES # (AUTO) 0.5 10^3/uL (0.0-1.0); MONOCYTES % (AUTO) 7 % (0-12); NEUTROPHILS # (AUTO) 4.1 10^3/uL (1.8-7.8); NEUTROPHILS % (AUTO) 53 % (42-75); PLATELET COUNT 375 10^3/uL (130-400); WHITE BLOOD COUNT 7.7 10^3/uL (4.3-11.0)
--- NOTE | 2022-06-09 17:14 | Diagnostic Imaging Report ---
INDICATION: Bilateral leg swelling COMPARISON: None TECHNIQUE: Duplex, matthew-scale and color-flow imaging of the bilateral lower extremity venous system was performed. FINDINGS: The common femoral vein, superficial femoral vein, profunda femoris, and popliteal veins are normal. These vessels show normal compressibility, color flow, and doppler augmentation. The deep calf veins, although not very well seen, demonstrate no distinct intraluminal thrombus. IMPRESSION: Negative venous Doppler of the bilateral lower extremities. Dictated by: Dictated on workstation # [id number]
[2022-06-09 17:24] LABS: ALBUMIN 3.8 GM/DL (3.2-4.5); POTASSIUM 4.1 MMOL/L (3.6-5.0)
[2022-06-09 17:26] LABS: TOTAL PROTEIN 6.9 GM/DL (6.4-8.2)
[2022-06-09 17:28] LABS: BILIRUBIN,TOTAL 0.4 MG/DL (0.1-1.0)
[2022-06-09 17:30] LABS: CREATININE SERUM 0.67 MG/DL (0.60-1.30)
[2022-06-09] MEDS ORDERED: HEParin (CENTRAL IV FLUSH) 500 UNIT/5 ML SYR IV ONE (18:15)
[2022-06-09] MEDS ORDERED: OXYC-199 PO (18:18)
[2022-06-09 18:33] VITALS: BP 127/85
== END 2022-06-09 18:33 | disposition home or self-care (01) ==
LOC: EDUNIT# 14:01 → ER 14:03
DX: R22.9 Localized swelling, mass and lump, unspecified (principal); D64.9 Anemia, unspecified; F17.210 Nicotine dependence, cigarettes, uncomplicated; Z87.2 Personal history of diseases of the skin and subcutaneous tissue
CPT/HCPCS: 36415; 73030; 73110; 80053; 85025; 85379; 93970

== ENCOUNTER 2022-06-27 17:14 | Emergency (ER) | payer BC ==
[~2022-06-27] VITALS: Ht 170 cm; Wt 118.0 kg
[~2022-06-27 17:14] MED LIST changes: +OXYC-199 PO
[2022-06-27 17:26] VITALS: BP 150/103
[2022-06-27 17:41] LABS: BILIRUBIN,URINE NEGATIVE (NEGATIVE); CLARITY,URINE CLEAR; COLOR,URINE YELLOW; GLUCOSE, URINE (UA) NEGATIVE (NEGATIVE); KETONES,URINE NEGATIVE (NEGATIVE); LEUKOCYTE ESTERASE ,URINE NEGATIVE (NEGATIVE); NITRITE,URINE NEGATIVE (NEGATIVE); PROTEIN,URINE NEGATIVE (NEGATIVE)
--- NOTE | 2022-06-27 17:45 | ED General ---
General Chief Complaint: Upper Extremity Stated Complaint: PAIN ALL OVER Nursing Triage Note: Patient presented to the ER today with complaints of right arm pain. She advised that she was seen in the ER a couple weeks ago for the same complaint. She states that the pain is not any better and that its to the point that it is affecting her mental well being. She states that something isn't right. Source of Information: Patient Exam Limitations: No Limitations History of Present Illness Date Seen by Provider: Jun 27, 2022 Time Seen by Provider: 17:43 Initial Comments Patient is a 36-year-old female who presents the ED with pain all over. She states she has been having this pain daily for the past year. She describes it as more bone pain. She describes the pain as a sharp pain with constant dull pain. She has had some intermittent edema in her lower extremity. History of DVT, bilateral mastectomy secondary to breast cancer few years ago. She is not currently on chemotherapy. She denies of any fever, weight changes, headache, dizziness, chest pain, cough, shortness of breath or urinary symptoms. No known autoimmune diseases. She was seen here on June 09 had upper and lower extremity ultrasounds that were unremarkable. She had x-ray of her right shoulder which was negative. She is scheduled follow-up with oncology on 02 July and [facility] her primary care physician on the . She denies of any bone disorders. Allergies and Home Medications Allergies Coded Allergies: aprepitant (Verified Allergy, Severe, 05/14/20) PATIENT STATES COULD NOT BREATH fosaprepitant (Verified Allergy, Severe, 05/14/20) PATIENT STATES COULD NOT BREATH latex (Verified Allergy, Severe, BLISTERS, 08/24/17) penicillin (Verified Allergy, Severe, ITCHING, 08/24/17) Sulfa (Sulfonamide Antibiotics) (Verified Allergy, Unknown, RASH, 08/24/17) Uncoded Allergies: STAWBERRIES (Allergy, Mild, RASH, 09/04/20) Patient Home Medication List Home Medication List Reviewed: Yes Acetaminophen (Tylenol Extra Strength) 500 Mg Tablet, 500-1,000 MG PO Q6H PRN for PAIN-MILD (1-4), (Reported) Entered as Reported by: ZHOU WRIGHT on 07/21/20 1215 Albuterol Sulfate (Ventolin Hfa) 90 Mcg Hfa.aer.ad, 2 PUFF INH Q4H Prescribed by: EMELIA GARCIA MD on 03/01/22 0552 Apixaban (Eliquis) 2.5 Mg Tablet, 2.5 MG PO BID Prescribed by: MARIA ELENA FISHER on 03/10/221999 Aspirin/Acetaminophen/Caffeine (Excedrin Migraine Caplet) 1 Each Tablet, 2 EACH PO Q6-8HR PRN for Headache, (Reported) Entered as Reported by: ZHOU WRIGHT on 07/21/20 1215 Benzonatate (Tessalon Perles) 100 Mg Capsule, 200 MG PO TID PRN for cough Prescribed by: RICHELLE MULTANI on 04/11/22 1101 Calcium Carbonate (Tums Ultra) 400 Mg Tab.chew, 400-800 MG PO Q6H PRN for INDIGESTION, (Reported) Entered as Reported by: ZHOU WRIGHT on 07/21/20 1215 Cetirizine HCl (Zyrtec) 10 Mg Tablet, 10 MG PO DAILY PRN for ALLERGY SYMPTOMS, (Reported) Entered as Reported by: ZHOU WRIGHT on 07/21/20 1215 Cholecalciferol (Vitamin D3) (Vitamin D3) 1,250 Mcg Capsule, 1,250 MCG PO FRI, (Reported) Entered as Reported by: ZHOU WRIGHT on 01/08/21 1534 Cyclosporine (Restasis) 1 Each Droperette, 1 DROP OU BID, (Reported) Entered as Reported by: ZHOU WRIGHT on 07/21/20 1215 Docusate Sodium (Colace) 100 Mg Capsule, 100 MG PO DAILY Prescribed by: MARIA ELENA FISHER on 03/10/221999 Gabapentin (Neurontin) 300 Mg Capsule, 300 MG PO HS PRN for PAIN-BREAKTHROUGH, (Reported) Entered as Reported by: ZHOU WRIGHT on 01/08/21 1534 Hydrocodone Bit/Acetaminophen (HYDROcodone/APAP 5 MG/325 MG TAB) 1 Tab Tab, 1-2 TAB PO Q4H PRN for PAIN-MODERATE (5-7) Prescribed by: VALERIA GUILLERMO on 05/08/21 0644 Hydrocodone/Acetaminophen (Hydrocodone-Acetamin 5-325 mg) 5 Mg-325 Mg Tablet, 1 TAB PO Q4H PRN for PAIN-MODERATE (5-7) Prescribed by: JUAN POZO on 09/03/21 1549 Hydrocodone/Acetaminophen (Hydrocodone-Acetamin 5-325 mg) 5 Mg-325 Mg Tablet, 1 TAB PO Q4H PRN for PAIN-MODERATE (5-7) Prescribed by: JOEL VALENTE on 12/23/21 1544 Hydrocodone/Acetaminophen (Hydrocodone-Acetamin 5-325 mg) 5 Mg-325 Mg Tablet, 1 TAB PO Q6H PRN for PAIN-MODERATE (5-7) Prescribed by: RICHELLE MULTANI on 04/11/22 1102 Hydrocodone/Acetaminophen (Hydrocodone-Acetamin 5-325 mg) 5 Mg-325 Mg Tablet, 1 TAB PO Q4H PRN for PAIN-MODERATE (5-7) Prescribed by: JUAN POZO on 06/27/22 1916 Levofloxacin (Levofloxacin) 500 Mg Tablet, 500 MG PO DAILY Prescribed by: JOEL VALENTE on 12/23/21 1246 Lurasidone HCl (Latuda) 80 Mg Tablet, 80 MG PO 1800 W/MEAL, (Reported) Entered as Reported by: ZHOU WRIGHT on 09/04/20 1047 Metoprolol Succinate (Metoprolol Succinate) 50 Mg Tab.er.24h, 50 MG PO BID, (Reported) Entered as Reported by: ZHOU WRIGHT on 09/04/20 1047 Ondansetron (Ondansetron Odt) 4 Mg Tab.rapdis, 4 MG SL Q8H PRN for NAUSEA/VOMITING Prescribed by: RICHELLE MULTANI on 04/11/22 1101 Ondansetron HCl (Ondansetron HCl) 8 Mg Tablet, 8 MG PO Q8H PRN for NAUSEA/VOMITING-1ST LINE, (Reported) Entered as Reported by: ZHOU WRIGHT on 07/21/20 1215 Oxycodone HCl/Acetaminophen (Percocet 5-325 mg Tablet) 1 Each Tablet, 1 TAB PO Q4H Prescribed by: MARIA ELENA FISHER on 03/10/222000 Oxycodone HCl/Acetaminophen (Percocet 5-325 mg Tablet) 5 Mg-325 Mg Tablet, 1 TAB PO Q6H PRN for PAIN-MODERATE Prescribed by: Judith Estrada on 06/09/228 Pantoprazole Sodium (Pantoprazole Sodium) 40 Mg Tablet.dr, 40 MG PO BID, (Reported) Entered as Reported by: ZHOU WRIGHT on 07/21/20 1215 Prednisone (Prednisone) 50 Mg Tab, 50 MG PO DAILY Prescribed by: EMELIA GARCIA MD on 03/01/22 0552 Sorbitol Solution (Sorbitol) 1 Ml Solution, 15-30 ML PO TID PRN for CONSTIPATION, (Reported) Entered as Reported by: ZHOU WRIGHT on 07/21/20 1215 Sucralfate (Sucralfate) 1 Gm Tablet, 1 GM PO QID PRN for ULCERS, (Reported) Entered as Reported by: ZHOU WRIGHT on 07/21/20 1215 Tizanidine HCl (Tizanidine HCl) 2 Mg Tablet, 2 MG PO BID PRN for MUSCLE SPASMS, (Reported) Entered as Reported by: ZHOU WRIGHT on 01/08/21 1534 Review of Systems Review of Systems Constitutional: No chills, No diaphoresis, No fever, No malaise EENTM: No blurred vision, No double vision Respiratory: No cough, No orthopnea, No short of breath, No wheezing Cardiovascular: No chest pain, No edema Gastrointestinal: No abdominal pain, No diarrhea, No nausea, No vomiting Genitourinary: No decreased output, No discharge Musculoskeletal: No back pain, No joint pain Skin: No change in color, No change in hair/nails All Other Systems Reviewed Negative Unless Noted: Yes Past Uhemfbo-Cmhvci-Kijgrq Hx Patient Social History Tobacco Use?: Yes Tobacco type used: Cigarettes Substance use?: No Alcohol Use?: No Immunizations Up To Date Tetanus Booster (TDap): Less than 5yrs PED Vaccines UTD: Yes First/Initial COVID19 Vaccinat: July 2020 Second COVID19 Vaccination Gunner: August 2020 Third COVID19 Vaccination Date: MAR 13 2021 Seasonal Allergies Seasonal Allergies: No Past Medical History Surgery/Hospitalization HX: Sepsis/SVT/UTI- Hospitalization, BILATERAL MASECTOMY, RIB SPACERS D/T MASSECTOMY. 08/17/21 cleaned extenders in both breasts at . 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 History: 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 Sexually Transmitted Disease: No HIV/AIDS: No Genitourinary: Yes Kidney Stones, UTI-Chronic Gastrointestinal: Yes Irritable Bowel Musculoskeletal: Yes Degenerate Disk Disease, Foot Drop, Scoliosis, Chronic Back Pain, Fractures Endocrine: No (STATES CHEMO HAS AFFECTED BLOOD SUGAR) Diabetes, Non-Insulin dep HEENT: No Loss of Vision: Bilateral Hearing Impairment: Denies Cancer: Yes Breast Did You Recieve Any Treatments: Yes What Type of Treatment Did You: Chemotherapy, Surgical Intervention Psychosocial: Yes (D.I.D.) Anxiety, PTSD, Bipolar Integumentary: No Herpes Blood Disorders: Yes (HX OF HYPERCOLAGUABLE STATE) Adverse Reaction/Blood Tranf: No (N/A) Family Medical History Antiphospholipid syndrome 19 MOTHER Diabetes mellitus 19 FATHER G8 BROTHER FH: aneurysm 19 FATHER FH: lupus 19 MOTHER FHx: congestive heart failure 19 FATHER FHx: renal failure 19 MOTHER Heart murmur 19 MOTHER Lupus anticoagulant disorder 19 MOTHER Patent foramen ovale 19 FATHER Barry syndrome G8 SISTER Physical Exam Vital Signs Vital Signs - First Documented 06/27/22 17:26 Temp 36.2 Pulse 114 Resp 18 B/P (MAP) 150/103 (119) Pulse Ox 100 O2 Delivery Room Air Capillary Refill : Less Than 3 Seconds Height, Weight, BMI Height: 5'4.00" Weight: 189lbs. 9.0oz. [id number]; 40.00 BMI Method:Stated General Appearance: No Apparent Distress, WD/WN Eyes: Bilateral Eye Normal Inspection, Bilateral Eye PERRL, Bilateral Eye EOMI HEENT: PERRL/EOMI, TMs Normal, Normal ENT Inspection, Pharynx Normal Neck: Full Range of Motion, Normal Inspection, Non Tender, Supple Respiratory: Chest Non Tender, Lungs Clear, Normal Breath Sounds, No Accessory Muscle Use, No Respiratory Distress Cardiovascular: Regular Rate, Rhythm, No Edema, No Gallop, No JVD Gastrointestinal: Normal Bowel Sounds, No Organomegaly, No Pulsatile Mass, Non Tender Back: Normal Inspection, No CVA Tenderness, No Vertebral Tenderness Extremity: Normal Capillary Refill, Normal Inspection, Normal Range of Motion, Non Tender, No Calf Tenderness Neurologic/Psychiatric: Alert, Oriented x3, No Motor/Sensory Deficits, Normal Mood/Affect, marble 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 II-XII Norm as Tested Skin: Normal Color, Warm/Dry Progress/Results/Core Measures Suspected Sepsis SIRS Temperature: Pulse: 114 Respiratory Rate: 18 Laboratory Tests 06/27/22 18:18: White Blood Count 9.3 Blood Pressure 150 /103 Mean: 119 Laboratory Tests 06/27/22 18:18: Creatinine 1.21, Platelet Count 368, Total Bilirubin 0.2 Results/Orders Lab Results Laboratory Tests Test 06/27/22 17:36 06/27/22 18:18 Range/Units Urine Color YELLOW Urine Clarity CLEAR Urine pH 6.0 5-9 Urine Specific [place] <=1.005 1.016-1.022 Urine Protein NEGATIVE NEGATIVE Urine Glucose (UA) NEGATIVE NEGATIVE Urine Ketones NEGATIVE NEGATIVE Urine Nitrite NEGATIVE NEGATIVE Urine Bilirubin NEGATIVE NEGATIVE Urine Urobilinogen 0.2 < = 1.0 MG/DL Urine Leukocyte Esterase NEGATIVE NEGATIVE Urine RBC (Auto) NEGATIVE NEGATIVE Urine RBC NONE /HPF Urine WBC NONE /HPF Urine Squamous Epithelial Cells 2-5 /HPF Urine Crystals NONE /LPF Urine Bacteria NEGATIVE /HPF Urine Casts NONE /LPF Urine Mucus NEGATIVE /LPF Urine Culture Indicated NO White Blood Count 9.3 4.3-11.0 10^3/uL Red Blood Count 4.91 3.80-5.11 10^6/uL Hemoglobin 13.0 11.5-16.0 g/dL Hematocrit 40 35-52 % Mean Corpuscular Volume 82 80-99 fL Mean Corpuscular Hemoglobin 27 25-34 pg Mean Corpuscular Hemoglobin Concent 32 32-36 g/dL Red Cell Distribution Width 16.6 H 10.0-14.5 % Platelet Count 368 130-400 10^3/uL Mean Platelet Volume 9.5 9.0-12.2 fL Immature Granulocyte % (Auto) 0 % Neutrophils (%) (Auto) 49 42-75 % Lymphocytes (%) (Auto) 44 12-44 % Monocytes (%) (Auto) 5 0-12 % Eosinophils (%) (Auto) 1 0-10 % Basophils (%) (Auto) 1 0-10 % Neutrophils # (Auto) 4.5 1.8-7.8 10^3/uL Lymphocytes # (Auto) 4.1 H 1.0-4.0 10^3/uL Monocytes # (Auto) 0.5 0.0-1.0 10^3/uL Eosinophils # (Auto) 0.1 0.0-0.3 10^3/uL Basophils # (Auto) 0.1 0.0-0.1 10^3/uL Immature Granulocyte # (Auto) 0.0 0.0-0.1 10^3/uL Erythrocyte Sedimentation Rate 34 H 0-20 MM/HR Sodium Level 140 135-145 MMOL/L Potassium Level 4.0 3.6-5.0 MMOL/L Chloride Level 105 98-107 MMOL/L Carbon Dioxide Level 21 21-32 MMOL/L Anion Gap 14 5-14 MMOL/L Blood Urea Nitrogen 8 7-18 MG/DL Creatinine 1.21 0.60-1.30 MG/DL Estimat Glomerular Filtration Rate 60 BUN/Creatinine Ratio 7 Glucose Level 101 70-105 MG/DL Calcium Level 10.3 H 8.5-10.1 MG/DL Corrected Calcium 10.0 8.5-10.1 MG/DL Total Bilirubin 0.2 0.1-1.0 MG/DL Aspartate Amino Transf (AST/SGOT) 14 5-34 U/L Alanine Aminotransferase (ALT/SGPT) 15 0-55 U/L Alkaline Phosphatase 64 40-136 U/L C-Reactive Protein High Sensitivity 0.79 H 0.00-0.50 MG/DL Total Protein 8.1 6.4-8.2 GM/DL Albumin 4.4 3.2-4.5 GM/DL My Orders Orders - HERBERT ARREDONDO Ua Culture If Indicated (06/27/22 17:19) Cbc With Automated Diff (06/27/22 17:42) Comprehensive Metabolic Panel (06/27/22 17:42) Erythrocyte Sedimentation Rate (06/27/22 17:42) Hs C Reactive Protein (06/27/22 17:42) Hydrocodone/Apap 5/325 Tablet (Lortab 5 (06/27/22 18:15) Medications Given in ED Current Medications Medications Dose Ordered Sig/Doimedes Route Start Time Stop Time Status Last Admin Dose Admin Acetaminophen/ Hydrocodone Bitart 1 ea ONCE ONCE PO 06/27/22 18:15 06/27/22 18:16 DC 06/27/22 18:29 1 EA Vital Signs/I&O 06/27/22 06/27/22 17:26 19:40 Temp 36.2 Pulse 114 Resp 18 18 B/P (MAP) 150/103 (119) Pulse Ox 100 98 O2 Delivery Room Air Room Air Capillary Refill : Less Than 3 Seconds Blood Pressure Mean: 119 Departure Communication (PCP) Reviewed previous ER visits, H&P's, lab testing. She was seen here on June 09 had a negative ultrasound of right upper extremity and bilateral lower extremities. There Was concern for diffuse edema. She states she has been having diffuse bone pain for the past year. History of breast cancer with double mastectomy. She states she is currently in remission. Unclear etiology of this diffuse pain. She has no chest pain or shortness of breath, cough, abdominal pain, vomiting or diarrhea diarrhea. Denies any fever, weight loss, night sweats. She has no thoracic or lumbar midline tenderness. Due to her current complaint CBC, CMP urinalysis was ordered for general work-up. CBC, CMP was otherwise unremarkable. urinalysis was unremarkable. Added CRP, ESR for any type of vasculitis, autoimmune immune response. Not able to appreciate any type of rash. No skin color changes suggesting vasculitis. Cap refill less than 2 all extremities. ESR was 34 and a CRP 0.79. Not significantly high. Unclear etiology of his diffuse body pain. She believes this is more in her bones. Reassuring lab work. Further lab work may be needed. she could have a potential psych component to this. did offer outpatient resources. Due to the length of symptoms and not able to find anything emergent at this time recommend outpatient follow-up for further evaluation. She is scheduled follow-up with oncology on the and her primary care physician on the . Provide a few days worth of pain medication. Impression Primary Impression: Chronic pain Disposition: HOME, SELF-CARE Condition: Stable Departure-Patient Inst. Decision time for Depature: 19:15 Referrals: [facility] [place] (PCP/Family) Primary Care Physician Patient Instructions: Muscle and Bone Pain (DC), OUTPT MENTAL HEALTH SERVICES Scripts Hydrocodone/Acetaminophen (Hydrocodone-Acetamin 5-325 mg) 5 Mg-325 Mg Tablet 1 TAB PO Q4H PRN for PAIN-MODERATE (5-7), #10 TAB Prov: HERBERT ARREDONDO 06/27/22 HERBERT ARREDONDO Jun 27, 2022 17:45
[2022-06-27 18:01] LABS: BACTERIA,URINE NEGATIVE /HPF
[2022-06-27] MEDS ORDERED: HYDROcodone/APAP 5 MG/325 MG (LORTAB) TAB PO ONE (18:15)
[2022-06-27 18:25] LABS: BASOPHILS # (AUTO) 0.1 10^3/uL (0.0-0.1); BASOPHILS % (AUTO) 1 % (0-10); EOSINOPHILS # (AUTO) 0.1 10^3/uL (0.0-0.3); EOSINOPHILS % (AUTO) 1 % (0-10); HEMATOCRIT 40 % (35-52); LYMPHOCYTES # (AUTO) 4.1 10^3/uL (1.0-4.0); LYMPHOCYTES % (AUTO) 44 % (12-44); MEAN CORPUSCULAR HEMOGLOBIN 27 pg (25-34); MEAN CORPUSCULAR HGB CONC 32 g/dL (32-36); MEAN CORPUSCULAR VOLUME 82 fL (80-99); MEAN PLATELET VOLUME 9.5 fL (9.0-12.2); MONOCYTES # (AUTO) 0.5 10^3/uL (0.0-1.0); MONOCYTES % (AUTO) 5 % (0-12); NEUTROPHILS # (AUTO) 4.5 10^3/uL (1.8-7.8); NEUTROPHILS % (AUTO) 49 % (42-75); PLATELET COUNT 368 10^3/uL (130-400); WHITE BLOOD COUNT 9.3 10^3/uL (4.3-11.0)
[2022-06-27 18:34] LABS: ALBUMIN 4.4 GM/DL (3.2-4.5)
[2022-06-27 18:35] LABS: CALCIUM 10.3 MG/DL (8.5-10.1)
[2022-06-27 18:37] LABS: TOTAL PROTEIN 8.1 GM/DL (6.4-8.2)
[2022-06-27 18:38] LABS: BILIRUBIN,TOTAL 0.2 MG/DL (0.1-1.0)
[2022-06-27 18:40] LABS: CREATININE SERUM 1.21 MG/DL (0.60-1.30)
[2022-06-27 18:49] LABS: ERYTHROCYTE SEDIMENTATION RATE 34 MM/HR (0-20)
[2022-06-27] MEDS ORDERED: ACHD5005 PO (19:16)
== END 2022-06-27 19:41 | disposition home or self-care (01) ==
LOC: EDUNIT# 17:14 → ER 17:15
DX: G89.29 Other chronic pain (principal); F17.210 Nicotine dependence, cigarettes, uncomplicated; Z91.040 Latex allergy status
CPT/HCPCS: 36415; 80053; 81000; 85025; 85652; 86141; 99283

== ENCOUNTER 2022-07-05 17:43 | Emergency (ER) | payer BC ==
[~2022-07-05] VITALS: Ht 154 cm; Wt 90.7 kg
--- NOTE | 2022-07-05 18:26 | ED General ---
General Chief Complaint: General Problems/Pain Stated Complaint: WEAKNESS Nursing Triage Note: pt presents to ed via pov from home with complaints of continued general weakness. pt reports she was unable to get around today and too weak to do adls. pt also reports pain in her legs. Source of Information: Patient History of Present Illness Date Seen by Provider: Jul 05, 2022 Time Seen by Provider: 18:25 Initial Comments PT ARRIVES VIA POV FROM HOME WITH A FEMALE FRIEND PT STATES "IT'S PAIN AGAIN" "MY BONES FEEL LIKE THEY'RE GONNA BREAK WHEN I STAND UP" THIS IS AN ONGOING, CHRONIC PROBLEM FOR OVER A YEAR STATES " I CAN'T WALK OR STAND UP" STATES SHE TOOK ASPIRIN AT 1230 TODAY "BEFORE I WENT INTO COURT" STATES SHE DOES NOT HAVE ANY OTHER PAIN MEDICATIONS. FRIEND STATES "EVERY TIME SINCE COURT IT'S LIKE HER BODY LOCKS UP AND SHE'S JUST SHAKING" NO INJURY NO PARESTHESIAS OR MOTOR DEFICITS NO NAUSEA/VOMITING/ DIARRHEA OR ABDOMINAL PAIN. BUT STATES "I NEVER EAT AND I DON'T REALLY DRINK ANYTHING--I JUST DON'T FEEL LIKE IT" STATES THIS IS ONGOING FOR A LONG TIME ALSO--AT LEAST A YEAR. NO REPORTED WEIGHT LOSS NO FEVER OR RECENT ILLNESS NO URINARY SYMPTOMS NO COUGH OR RESPIRATORY SYMPTOMS. PT STATES SHE CALLED NURSE AT , JUST PRIOR TO ARRIVAL AND STATES THEY TOLD HER TO COME HERE STATES "THEY KEEP TELLING ME TO COME TO [facility], AND THEY KEEP TELLING ME TO COME HERE AND THEN [facility] KEEP TELLING ME TO GO BACK THERE" STATES SHE WAS AT 07/02/22 FOR ROUTINE FOLLOW UP AND LAB STATES "I HAVE TO GO UP THERE EVERY COUPLE OF DAYS" "TO GET THE REST OF IT DONE" STATES "I HAVE AN APPOINTMENT WITH ONCOLOGY PAIN MANAGEMENT July BUT I CAN'T WAIT THAT LONG" PT HAS HISTORY OF BREAST CANCER, BUT IS NOT CURRENTLY RECEIVING ANY CANCER TREATMENT, AND IS REPORTEDLY IN REMISSION. PT HAS HAD A MULTITUDE OF VISITS HERE--THIS IS 3RD VISIT IN JUNE FOR ESSENTIALLY THE SAME COMPLAINT. WORK UP'S IN ER HAVE BEEN ESSENTIALLY BENIGN ON PRIOR VISITS THIS MONTH PT HAS A VERY EXTENSIVE HISTORY OF POLYSUBSTANCE ABUSE, INCLUDING ALCOHOLISM, DRUG ABUSE, ESPECIALLY OPIATES/NARCOTICS, WITH MULTIPLE OVERDOSES AND SUICIDE ATTEMPTS. SHE HAS AN APPOINTMENT TOMORROW FOR ROUTINE FOLLOW UP AT [facility] TOMORROW. SHE HAS APPOINTMENTS AT ON JULY 08 July, July, July. PCP: DEV, MEMO Mao. [facility], OTHER SPECIALISTS Allergies and Home Medications Allergies Coded Allergies: aprepitant (Verified Allergy, Severe, 05/14/20) PATIENT STATES COULD NOT BREATH fosaprepitant (Verified Allergy, Severe, 05/14/20) PATIENT STATES COULD NOT BREATH latex (Verified Allergy, Severe, BLISTERS, 08/24/17) penicillin (Verified Allergy, Severe, ITCHING, 08/24/17) Sulfa (Sulfonamide Antibiotics) (Verified Allergy, Unknown, RASH, 08/24/17) Uncoded Allergies: STAWBERRIES (Allergy, Mild, RASH, 09/04/20) Patient Home Medication List Acetaminophen (Tylenol Extra Strength) 500 Mg Tablet, 500-1,000 MG PO Q6H PRN for PAIN-MILD (1-4), (Reported) Entered as Reported by: ZHOU WRIGHT on 07/21/20 1215 Albuterol Sulfate (Ventolin Hfa) 90 Mcg Hfa.aer.ad, 2 PUFF INH Q4H Prescribed by: EMELIA GARCIA MD on 03/01/22 0552 Apixaban (Eliquis) 2.5 Mg Tablet, 2.5 MG PO BID Prescribed by: MARIA ELENA FISHER on 03/10/221999 Aspirin/Acetaminophen/Caffeine (Excedrin Migraine Caplet) 1 Each Tablet, 2 EACH PO Q6-8HR PRN for Headache, (Reported) Entered as Reported by: ZHOU WRIGHT on 07/21/20 1215 Benzonatate (Tessalon Perles) 100 Mg Capsule, 200 MG PO TID PRN for cough Prescribed by: RICHELLE MULTANI on 04/11/22 1101 Calcium Carbonate (Tums Ultra) 400 Mg Tab.chew, 400-800 MG PO Q6H PRN for I NDIGESTION, (Reported) Entered as Reported by: ZHOU WRIGHT on 07/21/20 1215 Cetirizine HCl (Zyrtec) 10 Mg Tablet, 10 MG PO DAILY PRN for ALLERGY SYMPTOMS, (Reported) Entered as Reported by: ZHOU WRIGHT on 07/21/20 1215 Cholecalciferol (Vitamin D3) (Vitamin D3) 1,250 Mcg Capsule, 1,250 MCG PO FRI, (Reported) Entered as Reported by: ZHOU WRIGHT on 01/08/21 1534 Cyclosporine (Restasis) 1 Each Droperette, 1 DROP OU BID, (Reported) Entered as Reported by: ZHOU WRIGHT on 07/21/20 1215 Docusate Sodium (Colace) 100 Mg Capsule, 100 MG PO DAILY Prescribed by: MARIA ELENA FISHER on 03/10/221999 Gabapentin (Neurontin) 300 Mg Capsule, 300 MG PO HS PRN for PAIN-BREAKTHROUGH, (Reported) Entered as Reported by: ZHOU WRIGHT on 01/08/21 1534 Hydrocodone Bit/Acetaminophen (HYDROcodone/APAP 5 MG/325 MG TAB) 1 Tab Tab, 1-2 TAB PO Q4H PRN for PAIN-MODERATE (5-7) Prescribed by: VALERIA GUILLERMO on 05/08/21 0644 Hydrocodone/Acetaminophen (Hydrocodone-Acetamin 5-325 mg) 5 Mg-325 Mg Tablet, 1 TAB PO Q4H PRN for PAIN-MODERATE (5-7) Prescribed by: JUAN POZO on 09/03/21 1549 Hydrocodone/Acetaminophen (Hydrocodone-Acetamin 5-325 mg) 5 Mg-325 Mg Tablet, 1 TAB PO Q4H PRN for PAIN-MODERATE (5-7) Prescribed by: JOEL VALENTE on 12/23/21 1544 Hydrocodone/Acetaminophen (Hydrocodone-Acetamin 5-325 mg) 5 Mg-325 Mg Tablet, 1 TAB PO Q6H PRN for PAIN-MODERATE (5-7) Prescribed by: RICHELLE MULTANI on 04/11/22 1102 Hydrocodone/Acetaminophen (Hydrocodone-Acetamin 5-325 mg) 5 Mg-325 Mg Tablet, 1 TAB PO Q4H PRN for PAIN-MODERATE (5-7) Prescribed by: JUAN POZO on 06/27/22 1916 Levofloxacin (Levofloxacin) 500 Mg Tablet, 500 MG PO DAILY Prescribed by: JOEL VALENTE on 12/23/21 1246 Lurasidone HCl (Latuda) 80 Mg Tablet, 80 MG PO 1800 W/MEAL, (Reported) Entered as Reported by: ZHOU WRIGHT on 09/04/20 1047 Metoprolol Succinate (Metoprolol Succinate) 50 Mg Tab.er.24h, 50 MG PO BID, (Reported) Entered as Reported by: ZHOU WRIGHT on 09/04/20 1047 Nitrofurantoin Monohyd/M-Cryst (Macrobid 100 mg Capsule) 100 Mg Capsule, 1 TAB PO BID Prescribed by: JUAN GONZALEZ on 07/05/22 2136 Ondansetron (Ondansetron Odt) 4 Mg Tab.rapdis, 4 MG SL Q8H PRN for FREDY SEA/VOMITING Prescribed by: RICHELLE MULTANI on 04/11/22 1101 Ondansetron HCl (Ondansetron HCl) 8 Mg Tablet, 8 MG PO Q8H PRN for NAUSEA/VOMITING-1ST LINE, (Reported) Entered as Reported by: ZHOU WRIGHT on 07/21/20 121 Oxycodone HCl/Acetaminophen (Percocet 5-325 mg Tablet) 1 Each Tablet, 1 TAB PO Q4H Prescribed by: MARIA ELENA FISHER on 03/10/222000 Oxycodone HCl/Acetaminophen (Percocet 5-325 mg Tablet) 5 Mg-325 Mg Tablet, 1 TAB PO Q6H PRN for PAIN-MODERATE Prescribed by: Judith Estrada on 06/09/22 181 Pantoprazole Sodium (Pantoprazole Sodium) 40 Mg Tablet.dr, 40 MG PO BID, (Reported) Entered as Reported by: ZHOU WRIGHT on 07/21/20 1215 Prednisone (Prednisone) 50 Mg Tab, 50 MG PO DAILY Prescribed by: EMELIA GARCIA MD on 03/01/22 0552 Sorbitol Solution (Sorbitol) 1 Ml Solution, 15-30 ML PO TID PRN for CONSTIPATION, (Reported) Entered as Reported by: ZHOU WRIGHT on 07/21/20 1215 Sucralfate (Sucralfate) 1 Gm Tablet, 1 GM PO QID PRN for ULCERS, (Reported) Entered as Reported by: ZHOU WRIGHT on 07/21/20 1215 Tizanidine HCl (Tizanidine HCl) 2 Mg Tablet, 2 MG PO BID PRN for MUSCLE SPASMS, (Reported) Entered as Reported by: ZHOU WRIGHT on 01/08/21 1534 Review of Systems Review of Systems Constitutional: see HPI; No chills, No diaphoresis, No dizziness, No fever; malaise, weakness EENTM: no symptoms reported Respiratory: no symptoms reported; No cough, No short of breath Cardiovascular: no symptoms reported; No chest pain Gastrointestinal: see HPI; No abdominal pain, No diarrhea; loss of appetite; No nausea, No vomiting Genitourinary: no symptoms reported Musculoskeletal: see HPI, other (CHRONIC LEG/FEET SWELLING, NO DIFFERENT TODAY) Skin: no symptoms reported Psychiatric/Neurological: No Symptoms Reported; Denies Headache, Denies Numbness, Denies Paresthesia, Denies Seizure, Denies Tingling, Denies Tremors Hematologic/Lymphatic: No Symptoms Reported Immunological/Allergic: no symptoms reported Past Ockzkod-Spbrih-Vhawrd Hx Patient Social History Tobacco Use?: Yes Tobacco type used: Cigarettes Smoking Status: Current Everyday Smoker Use of E-Cig and/or Vaping dev: No Substance use?: Yes Alcohol Use?: Yes Pt feels they are or have been: No Immunizations Up To Date Tetanus Booster (TDap): Less than 5yrs PED Vaccines UTD: Yes First/Initial COVID19 Vaccinat: July 2020 Second COVID19 Vaccination Gunner: August 2020 Third COVID19 Vaccination Date: MAR 13 2021 Seasonal Allergies Seasonal Allergies: No Past Medical History Surgery/Hospitalization HX: Sepsis/SVT/UTI- Hospitalization, BILATERAL MASECTOMY, RIB SPACERS D/T MASSECTOMY. 08/17/21 cleaned extenders in both breasts at . HYSTERECTOMY, R LEG SURG Surgeries: Yes (Loop Recorder, R PAC, BILAT MASTECTOMY 04/01/21; PORT) Breast, Cardiac, Hysterectomy, Oophorectomy, Orthopedic, 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, Vascular Surgery Respiratory: Yes Asthma Currently Using CPAP: No Currently Using BIPAP: No Cardiac: Yes (PFO, SVT;LOOP RECORDER) Congenital Heart Disease, Deep Vein Thrombosis, High Cholesterol, Palpitations Neurological: Yes Seizure Disorder, Stroke 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 Disorders: Yes (MENORRHAGIA) Female 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 Disorders: Ovarian Cyst [employer] History: 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 Sexually Transmitted Disease: No HIV/AIDS: No Genitourinary: Yes Kidney Stones, UTI-Chronic Gastrointestinal: Yes Irritable Bowel Musculoskeletal: Yes (CHRONIC GENERALIZED PAIN ) Degenerate Disk Disease, Foot Drop, Scoliosis, Chronic Back Pain, Fractures Endocrine: No (STATES CHEMO HAS AFFECTED BLOOD SUGAR; OBESITY) Diabetes, Non-Insulin dep HEENT: No Loss of Vision: Bilateral Hearing Impairment: Denies Cancer: Yes Breast Did You Recieve Any Treatments: Yes What Type of Treatment Did You: Chemotherapy, Surgical Intervention BILATERAL MASTECTOMY 2020 Psychosocial: Yes (D.I.D.; MULTIPLE OVERDOSES/SUICIDE ATTEMPTS;POLYSUBSTANCE ABUSE) Anxiety, PTSD, Suicide Attempts, Bipolar Integumentary: No Herpes Blood Disorders: Yes (HX OF HYPERCOLAGUABLE STATE) Adverse Reaction/Blood Tranf: No (N/A) Family Medical History Antiphospholipid syndrome 19 MOTHER Diabetes mellitus 19 FATHER G8 BROTHER FH: aneurysm 19 FATHER FH: lupus 19 MOTHER FHx: congestive heart failure 19 FATHER FHx: renal failure 19 MOTHER Heart murmur 19 MOTHER Lupus anticoagulant disorder 19 MOTHER Patent foramen ovale 19 FATHER Barry syndrome G8 SISTER SOCIAL HISTORY: -SMOKES 1 PPD -ETOH--HX OF ABUSE -DRUGS--EXTENSIVE RX DRUG ABUSE, ESPECIALLY NARCOTICS'/OPIATES WITH MULTIPLE OVERDOSES AND SUICIDE ATTEMPTS. SHE HAS A HISTORY OF EXTREME NON-COMPLIANCE IN ALL ASPECTS OF CARE. PAST SURGICAL HISTORY: -LOOP RECORDER -BILATERAL MASTECTOMY -PORT PLACEMENT -RIGHT LEG SURGERY Physical Exam Vital Signs Vital Signs - First Documented 07/05/22 18:03 Temp 36.7 Pulse 98 Resp 20 B/P (MAP) 129/90 (103) Pulse Ox 99 Capillary Refill : Less Than 3 Seconds Height, Weight, BMI Height: 5'4.00" Weight: 189lbs. 9.0oz. [id number]; 38.00 BMI Method:Stated General Appearance: No Apparent Distress, WD/WN, Obese, Other HEENT: PERRL/EOMI Neck: Normal Inspection Respiratory: Chest Non Tender, Normal Breath Sounds, No Accessory Muscle Use, No Respiratory Distress Cardiovascular: Regular Rate, Rhythm, No Edema (NO EDEMA TO FEET OR ANKLES, DIFFICULT TO DETERMINE IF EDEMA IS PRESENT IN LOWER LEGS DUE TO BODY HABITUS. PEDAL PULSES STRONG AND EQUAL, FEET ARE PINK AND WARM), No JVD, No Murmur, Normal Peripheral Pulses Gastrointestinal: Non Tender, Soft Back: No CVA Tenderness, No Vertebral Tenderness Extremity: Normal Capillary Refill, Normal Range of Motion, Non Tender, No Calf Tenderness, Other (THERE IS NO TENDERNESS TO PALPATION ANYWHERE) Neurologic/Psychiatric: Alert, Oriented x3, No Motor/Sensory Deficits, Normal Mood/Affect, tongue trimmer II-XII Norm as Tested Skin: Normal Color (PT IS BLACK), Warm/Dry, Tattoos/Piercings (EXTENSIVE TATTOOS) Progress/Results/Core Measures Suspected Sepsis SIRS Temperature: Pulse: 98 Respiratory Rate: 20 Laboratory Tests 07/05/22 18:55: White Blood Count 7.0 Blood Pressure 129 /90 Mean: 103 Laboratory Tests 07/05/22 18:55: Creatinine 0.73, Platelet Count 331, Total Bilirubin 0.3 Results/Orders Lab Results Laboratory Tests Test 07/05/22 18:55 07/05/22 19:24 07/05/22 21:22 Range/Units White Blood Count 7.0 4.3-11.0 10^3/uL Red Blood Count 4.43 3.80-5.11 10^6/uL Hemoglobin 11.5 11.5-16.0 g/dL Hematocrit 36 35-52 % Mean Corpuscular Volume 82 80-99 fL Mean Corpuscular Hemoglobin 26 25-34 pg Mean Corpuscular Hemoglobin Concent 32 32-36 g/dL Red Cell Distribution Width 16.5 H 10.0-14.5 % Platelet Count 331 130-400 10^3/uL Mean Platelet Volume 9.6 9.0-12.2 fL Immature Granulocyte % (Auto) 0 % Neutrophils (%) (Auto) 47 42-75 % Lymphocytes (%) (Auto) 45 H 12-44 % Monocytes (%) (Auto) 7 0-12 % Eosinophils (%) (Auto) 1 0-10 % Basophils (%) (Auto) 0 0-10 % Neutrophils # (Auto) 3.2 1.8-7.8 10^3/uL Lymphocytes # (Auto) 3.2 1.0-4.0 10^3/uL Monocytes # (Auto) 0.5 0.0-1.0 10^3/uL Eosinophils # (Auto) 0.1 0.0-0.3 10^3/uL Basophils # (Auto) 0.0 0.0-0.1 10^3/uL Immature Granulocyte # (Auto) 0.0 0.0-0.1 10^3/uL Erythrocyte Sedimentation Rate 33 H 0-20 MM/HR Sodium Level 140 135-145 MMOL/L Potassium Level 3.8 3.6-5.0 MMOL/L Chloride Level 106 98-107 MMOL/L Carbon Dioxide Level 23 21-32 MMOL/L Anion Gap 11 5-14 MMOL/L Blood Urea Nitrogen 13 7-18 MG/DL Creatinine 0.73 0.60-1.30 MG/DL Estimat Glomerular Filtration Rate 109 BUN/Creatinine Ratio 18 Glucose Level 105 70-105 MG/DL Calcium Level 9.8 8.5-10.1 MG/DL Corrected Calcium 9.8 8.5-10.1 MG/DL Magnesium Level 1.8 1.6-2.4 MG/DL Total Bilirubin 0.3 0.1-1.0 MG/DL Aspartate Amino Transf (AST/SGOT) 17 5-34 U/L Alanine Aminotransferase (ALT/SGPT) 19 0-55 U/L Alkaline Phosphatase 60 40-136 U/L Total Creatine Kinase 160 29-168 U/L Creatine Kinase MB 1.0 <6.6 NG/ML Myoglobin 18.9 10.0-92.0 NG/ML C-Reactive Protein High Sensitivity 0.76 H 0.00-0.50 MG/DL Total Protein 7.2 6.4-8.2 GM/DL Albumin 4.0 3.2-4.5 GM/DL TSH [place] Testing 1.12 0.35-4.94 UIU/ML Serum Test, Qualitative POSITIVE NEGATIVE Serum Alcohol < 10 <10 MG/DL Human Chorionic Gonadotropin, Quant < 5 <5 MIU/ML Urine Color ORANGE Urine Clarity SL CLOUDY Urine pH 5.5 5-9 Urine Specific [place] >=1.030 1.016-1.022 Urine Protein NEGATIVE NEGATIVE Urine Glucose (UA) NEGATIVE NEGATIVE Urine Ketones NEGATIVE NEGATIVE Urine Nitrite NEGATIVE NEGATIVE Urine Bilirubin NEGATIVE NEGATIVE Urine Urobilinogen 0.2 < = 1.0 MG/DL Urine Leukocyte Esterase NEGATIVE NEGATIVE Urine RBC (Auto) NEGATIVE NEGATIVE Urine RBC NONE /HPF Urine WBC 5-10 H /HPF Urine Squamous Epithelial Cells 10-25 H /HPF Urine Crystals PRESENT H /LPF Urine Calcium Oxalate Crystals LARGE H /LPF Urine Bacteria MODERATE H /HPF Urine Casts NONE /LPF Urine Mucus LARGE H /LPF Urine Culture Indicated NO Urine Opiates Screen NEGATIVE NEGATIVE Urine Oxycodone Screen NEGATIVE NEGATIVE Urine Methadone Screen NEGATIVE NEGATIVE Urine Propoxyphene Screen NEGATIVE NEGATIVE Urine Barbiturates Screen NEGATIVE NEGATIVE Ur Tricyclic Antidepressants Screen NEGATIVE NEGATIVE Urine Phencyclidine Screen NEGATIVE NEGATIVE Urine Amphetamines Screen NEGATIVE NEGATIVE Urine Methamphetamines Screen NEGATIVE NEGATIVE Urine Benzodiazepines Screen NEGATIVE NEGATIVE Urine Cocaine Screen NEGATIVE NEGATIVE Urine Cannabinoids Screen NEGATIVE NEGATIVE My Orders Orders - JUAN GONZALEZ DO Ed Iv/Invasive Line Start (07/05/22 18:25) Monitor-Rhythm Ecg Trace Only (07/05/22 18:25) Cbc With Automated Diff (07/05/22 18:25) Comprehensive Metabolic Panel (07/05/22 18:25) Hcg,Qualitative Serum (07/05/22 18:25) Magnesium (07/05/22 18:25) Thyroid Analyzer (07/05/22 18:25) Ua Culture If Indicated (07/05/22 18:25) Alcohol (07/05/22 18:35) Creatine Kinase (07/05/22 18:35) Creatine Kinase Mb (07/05/22 18:35) Hs C Reactive Protein (07/05/22 18:35) Drug Screen Stat (Urine) (07/05/22 18:35) Erythrocyte Sedimentation Rate (07/05/22 18:35) Myoglobin Serum (07/05/22 18:35) Ketorolac Injection (Toradol Injection) (07/05/22 19:45) Orphenadrine Inj (Ed Only) (Norflex Inje (07/05/22 19:45) Diphenhydramine Injection (Benadryl Inje (07/05/22 19:45) Ed Iv/Invasive Line Start (07/05/22 19:31) Lactated Ringers (Lr 1000 Ml Iv Solution (07/05/22 19:45) Hcg,Quantitative (07/05/22 19:49) Rx-Nitrofurantoin [place] (Rx-Macrobid) (07/05/22 21:42) Medications Given in ED Current Medications Medications Dose Ordered Sig/Diomedes Route Start Time Stop Time Status Last Admin Dose Admin Diphenhydramine HCl 50 mg ONCE ONCE IVP 07/05/22 19:45 07/05/22 19:46 DC 07/05/22 19:44 50 MG Ketorolac Tromethamine 30 mg ONCE ONCE IVP 07/05/22 19:45 07/05/22 19:46 DC 07/05/22 19:42 30 MG Lactated Ringer's 1,000 ml @ 0 mls/hr Q0M ONCE IV 07/05/22 19:45 07/05/22 19:46 DC 07/05/22 19:42 0 MLS/HR Orphenadrine Citrate 60 mg ONCE ONCE IV 07/05/22 19:45 07/05/22 19:46 DC 07/05/22 19:44 60 MG Vital Signs/I&O 07/05/22 18:03 Temp 36.7 Pulse 98 Resp 20 B/P (MAP) 129/90 (103) Pulse Ox 99 Capillary Refill : Less Than 3 Seconds Blood Pressure Mean: 103 Progress Note : Progress Note GIVEN: -IV FLUIDS -TORADOL -NORFLEX -BENADRYL SYMPTOMS IMPROVED WITH THE ABOVE. PT STATES SHE HAS AN APPOINTMENT WITH [facility] TOMORROW, AND WITH [facility] ON 07/08, WILL DEFER ANY MEDICATIONS/ PRESCRIPTIONS TO THEM. REVIEWED PRIOR RECORDS, INCLUDING EXTENSIVE ER VISITS, ADMITS/H&P'S/DISCHARGE SUMMARIES, TESTS/PROCEDURES. DISCUSSED TEST RESULTS, ANTICIPATED COURSE, SYMPTOMATIC TREATMENT, NEED FOR FOLLOW UP AND RETURN PRECAUTIONS. Departure Impression Primary Impression: Chronic generalized pain Additional Impression: UTI (urinary tract infection) Disposition: HOME, SELF-CARE Condition: Stable Departure-Patient Inst. Decision time for Depature: 21:36 Referrals: [facility] [place] (PCP/Family) Primary Care Physician Patient Instructions: Chronic Pain (DC), Urinary Tract Infection, Adult (DC) Add. Discharge Instructions: TYLENOL AND MOTRIN NEEDED FOR PAIN KEEP YOUR APPOINTMENTS AT [facility] AND [facility] THIS WEEK AND NEXT WEEK SCHEDULED All discharge instructions reviewed with patient and/or family. Voiced understanding. Scripts Nitrofurantoin Monohyd/M-Cryst (Macrobid 100 mg Capsule) 100 Mg Capsule 1 TAB PO BID, #20 CAP Prov: JUAN GONZALEZ DO 07/05/22 JUAN GONZALEZ DO Jul 05, 2022 18:26
[2022-07-05 19:10] LABS: BASOPHILS % (AUTO) 0 % (0-10); EOSINOPHILS # (AUTO) 0.1 10^3/uL (0.0-0.3); EOSINOPHILS % (AUTO) 1 % (0-10); HEMATOCRIT 36 % (35-52); HEMOGLOBIN 11.5 g/dL (11.5-16.0); LYMPHOCYTES # (AUTO) 3.2 10^3/uL (1.0-4.0); LYMPHOCYTES % (AUTO) 45 % (12-44); MEAN CORPUSCULAR HEMOGLOBIN 26 pg (25-34); MEAN CORPUSCULAR HGB CONC 32 g/dL (32-36); MEAN CORPUSCULAR VOLUME 82 fL (80-99); MEAN PLATELET VOLUME 9.6 fL (9.0-12.2); MONOCYTES # (AUTO) 0.5 10^3/uL (0.0-1.0); MONOCYTES % (AUTO) 7 % (0-12); NEUTROPHILS # (AUTO) 3.2 10^3/uL (1.8-7.8); NEUTROPHILS % (AUTO) 47 % (42-75); PLATELET COUNT 331 10^3/uL (130-400)
[2022-07-05 19:17] LABS: CHLORIDE 106 MMOL/L (98-107); POTASSIUM 3.8 MMOL/L (3.6-5.0); SODIUM 140 MMOL/L (135-145)
[2022-07-05 19:18] LABS: CALCIUM 9.8 MG/DL (8.5-10.1)
[2022-07-05 19:19] LABS: GLUCOSE 105 MG/DL (70-105); TOTAL PROTEIN 7.2 GM/DL (6.4-8.2)
[2022-07-05 19:20] LABS: CARBON DIOXIDE 23 MMOL/L (21-32)
[2022-07-05 19:21] LABS: BILIRUBIN,TOTAL 0.3 MG/DL (0.1-1.0)
[2022-07-05 19:23] LABS: ALKALINE PHOSPHATASE 60 U/L (40-136); CREATININE SERUM 0.73 MG/DL (0.60-1.30); GFR ESTIMATED 109
[2022-07-05 19:24] LABS: BUN/CREATININE RATIO 18
[2022-07-05 19:26] LABS: ALANINE AMINOTRANSFERASE 19 U/L (0-55); MAGNESIUM 1.8 MG/DL (1.6-2.4)
[2022-07-05 19:27] LABS: CREATINE KINASE 160 U/L (29-168)
[2022-07-05 19:31] LABS: ERYTHROCYTE SEDIMENTATION RATE 33 MM/HR (0-20)
[2022-07-05] MEDS ORDERED: LACTATED RINGERS 1,000 ML IV ONE (19:45)
[2022-07-05] MEDS ORDERED: ORPHENADRINE 60 MG/2 ML (NORFLEX) AMP (ED ONLY) IV ONE (19:45)
[2022-07-05] MEDS ORDERED: diphenhydrAMINE 50 MG/ML INJ (BENADRYL) IVP ONE (19:45)
[2022-07-05] MEDS ORDERED: KETOROLAC 30 MG/ML VIAL IVP ONE (19:45)
[2022-07-05 19:46] LABS: TSH (THYROID ANALYZER) 1.12 UIU/ML (0.35-4.94)
[2022-07-05 21:25] LABS: BILIRUBIN,URINE NEGATIVE (NEGATIVE); CLARITY,URINE SL CLOUDY; COLOR,URINE ORANGE; GLUCOSE, URINE (UA) NEGATIVE (NEGATIVE); KETONES,URINE NEGATIVE (NEGATIVE); LEUKOCYTE ESTERASE ,URINE NEGATIVE (NEGATIVE); NITRITE,URINE NEGATIVE (NEGATIVE); PH,URINE 5.5 (5-9); PROTEIN,URINE NEGATIVE (NEGATIVE)
[2022-07-05 21:34] LABS: BACTERIA,URINE MODERATE /HPF; CALCIUM OXALATE CRYSTALS,UR LARGE /LPF
[2022-07-05] MEDS ORDERED: NITR-65 PO (21:36)
[2022-07-05] MEDS ORDERED: RX-NITROFURANTOIN 100 MG (MACROBID) CAP PPK#2 PO STA (21:42)
[2022-07-05 21:44] LABS: BENZODIAZEPINES SCREEN URINE NEGATIVE (NEGATIVE); COCAINE SCREEN URINE NEGATIVE (NEGATIVE)
[2022-07-05 21:45] LABS: AMPHETAMINE SCREEN, URINE NEGATIVE (NEGATIVE); BARBITURATE SCREEN URINE NEGATIVE (NEGATIVE); CANNABINOID SCREEN, URINE NEGATIVE (NEGATIVE); METHADONE STAT NEGATIVE (NEGATIVE); OPIATE SCREEN URINE NEGATIVE (NEGATIVE); OXYCODONE STAT NEGATIVE (NEGATIVE); PROPOXYPHENE STAT NEGATIVE (NEGATIVE); TRICYCLIC ANTIDEPRESSANTS SCRE NEGATIVE (NEGATIVE)
[2022-07-05 21:47] VITALS: BP 123/87
== END 2022-07-05 21:49 | disposition home or self-care (01) ==
LOC: EDUNIT# 17:43 → ER 17:45
DX: N39.0 Urinary tract infection, site not specified (principal); G89.29 Other chronic pain; E66.9 Obesity, unspecified; F17.210 Nicotine dependence, cigarettes, uncomplicated; Z68.38 Body mass index [BMI] 38.0-38.9, adult; Z88.1 Allergy status to other antibiotic agents; Z85.3 Personal history of malignant neoplasm of breast
CPT/HCPCS: 80053; 80306; 81000; 82550; 82553; 83735; 83874; 84443; 84702; 84703; 85025; 85652; 86141; 93041; 99283; G0480; 36415; 80320

== ENCOUNTER 2022-08-28 13:41 | Emergency (ER) | payer MEDICARE, MEDICAID ==
[2022-08-28] MEDS ORDERED: fentaNYL INJ 100 MCG/2 ML AMP IVP STA (14:18)
--- NOTE | 2022-08-28 14:24 | ED General ---
General Chief Complaint: General Problems/Pain Stated Complaint: DIZZINESS ABDOMINAL PAIN JOINT PAIN Nursing Triage Note: pt ambulatory to room. states she has "extreme fatigue, bone pain, throwing up, nauseated, right sided pain, and not eating for 2 days" states this has been going on for 5-6 days. pt is A&Ox4, speech normal on arrival Source of Information: Patient Exam Limitations: No Limitations (HERBERT ARREDONDO) History of Present Illness Date Seen by Provider: August 28, 2022 Time Seen by Provider: 14:20 Initial Comments Patient is a 37-year-old female who presents to the ED with fatigue, bone pain, vomiting, nausea and right-sided abdominal pain. She states right side abdominal pain started 5 days ago. Described as sharp and constant. She states she vomits when she eats. She states she has not eaten much over the past 2 days. She states generalized body pains and fatigue and weakness. Denies of any joint swelling, chest pain, cough, sore throat, ear pain. History of breast cancer 3 years ago. She states that she went to a ER in [place] on august 23 snd had general lab work, ultrasound of right upper quadrant, EKG, chest x-ray which was unremarkable. She followed up with Dr. Barlow on and is scheduling a follow up with Dr. [facility]. She has had similar symptoms in the past. She is frustrated with her medical care. She states that she is tired of feeling this way and not eating. Denies fever, diarrhea, chest pain, cough, shortness of breath (HERBERT ARREDONDO) Allergies and Home Medications Allergies Coded Allergies: aprepitant (Verified Allergy, Severe, 05/14/20) PATIENT STATES COULD NOT BREATH fosaprepitant (Verified Allergy, Severe, 05/14/20) PATIENT STATES COULD NOT BREATH latex (Verified Allergy, Severe, BLISTERS, 08/24/17) penicillin (Verified Allergy, Severe, ITCHING, 08/24/17) Sulfa (Sulfonamide Antibiotics) (Verified Allergy, Unknown, RASH, 08/24/17) Uncoded Allergies: STAWBERRIES (Allergy, Mild, RASH, 09/04/20) Patient Home Medication List Home Medication List Reviewed: Yes (HERBERT ARREDONDO) Acetaminophen (Tylenol Extra Strength) 500 Mg Tablet, 500-1,000 MG PO Q6H PRN for PAIN-MILD (1-4), (Reported) Entered as Reported by: ZHOU WRIGHT on 07/21/20 1215 Albuterol Sulfate (Ventolin Hfa) 90 Mcg Hfa.aer.ad, 2 PUFF INH Q4H Prescribed by: EMELIA GARCIA MD on 03/01/22 0552 Apixaban (Eliquis) 2.5 Mg Tablet, 2.5 MG PO BID Prescribed by: MARIA ELENA FISHER on 03/10/221999 Aspirin/Acetaminophen/Caffeine (Excedrin Migraine Caplet) 1 Each Tablet, 2 EACH PO Q6-8HR PRN for Headache, (Reported) Entered as Reported by: ZHOU WRIGHT on 07/21/20 121 Benzonatate (Tessalon Perles) 100 Mg Capsule, 200 MG PO TID PRN for cough Prescribed by: RICHELLE MULTANI on 04/11/22 1101 Calcium Carbonate (Tums Ultra) 400 Mg Tab.chew, 400-800 MG PO Q6H PRN for INDIGESTION, (Reported) Entered as Reported by: ZHOU WRIGHT on 07/21/20 121 Cetirizine HCl (Zyrtec) 10 Mg Tablet, 10 MG PO DAILY PRN for ALLERGY SYMPTOMS, (Reported) Entered as Reported by: ZHOU WRIGHT on 07/21/20 121 Cholecalciferol (Vitamin D3) (Vitamin D3) 1,250 Mcg Capsule, 1,250 MCG PO FRI, (Reported) Entered as Reported by: ZHOU WRIGHT on 01/08/21 153 Cyclosporine (Restasis) 1 Each Droperette, 1 DROP OU BID, (Reported) Entered as Reported by: ZHOU WRIGHT on 07/21/20 121 Docusate Sodium (Colace) 100 Mg Capsule, 100 MG PO DAILY Prescribed by: MARIA ELENA FISHER on 03/10/221999 Gabapentin (Neurontin) 300 Mg Capsule, 300 MG PO HS PRN for PAIN-BREAKTHROUGH, (Reported) Entered as Reported by: ZHOU WRIGHT on 01/08/21 1534 Hydrocodone Bit/Acetaminophen (HYDROcodone/APAP 5 MG/325 MG TAB) 1 Tab Tab, 1-2 TAB PO Q4H PRN for PAIN-MODERATE (5-7) Prescribed by: VALERIA GUILLERMO on 05/08/21 0644 Hydrocodone/Acetaminophen (Hydrocodone-Acetamin 5-325 mg) 5 Mg-325 Mg Tablet, 1 TAB PO Q4H PRN for PAIN-MODERATE (5-7) Prescribed by: JUAN POZO on 09/03/21 1549 Hydrocodone/Acetaminophen (Hydrocodone-Acetamin 5-325 mg) 5 Mg-325 Mg Tablet, 1 TAB PO Q4H PRN for PAIN-MODERATE (5-7) Prescribed by: JOEL VALENTE on 12/23/21 1544 Hydrocodone/Acetaminophen (Hydrocodone-Acetamin 5-325 mg) 5 Mg-325 Mg Tablet, 1 TAB PO Q6H PRN for PAIN-MODERATE (5-7) Prescribed by: RICHELLE MULTANI on 04/11/22 1102 Hydrocodone/Acetaminophen (Hydrocodone-Acetamin 5-325 mg) 5 Mg-325 Mg Tablet, 1 TAB PO Q4H PRN for PAIN-MODERATE (5-7) Prescribed by: JUAN POZO on 06/27/22 1916 Hydrocodone/Acetaminophen (Hydrocodone-Acetamin 5-325 mg) 5 Mg-325 Mg Tablet, 1 TAB PO Q4H PRN for PAIN-MODERATE (5-7) Prescribed by: JUAN POZO on 08/28/22 1624 Levofloxacin (Levofloxacin) 500 Mg Tablet, 500 MG PO DAILY Prescribed by: JOEL VALENTE on 12/23/21 1246 Lurasidone HCl (Latuda) 80 Mg Tablet, 80 MG PO 1800 W/MEAL, (Reported) Entered as Reported by: ZHOU WRIGHT on 09/04/20 1047 Metoprolol Succinate (Metoprolol Succinate) 50 Mg Tab.er.24h, 50 MG PO BID, (Reported) Entered as Reported by: ZHOU WRIGHT on 09/04/20 1047 Nitrofurantoin Monohyd/M-Cryst (Macrobid 100 mg Capsule) 100 Mg Capsule, 1 TAB PO BID Prescribed by: JUAN GONZALEZ on 07/05/22 2136 Ondansetron (Ondansetron Odt) 4 Mg Tab.rapdis, 4 MG SL Q8H PRN for NAUSEA/VOMITING Prescribed by: RICHELLE MULTANI on 04/11/22 1101 Ondansetron HCl (Ondansetron HCl) 8 Mg Tablet, 8 MG PO Q8H PRN for NAUSEA/VOMITING-1ST LINE, (Reported) Entered as Reported by: ZHOU WRIGHT on 07/21/20 1215 Oxycodone HCl/Acetaminophen (Percocet 5-325 mg Tablet) 1 Each Tablet, 1 TAB PO Q4H Prescribed by: MARIA ELENA FISHER on 03/10/222000 Oxycodone HCl/Acetaminophen (Percocet 5-325 mg Tablet) 5 Mg-325 Mg Tablet, 1 TAB PO Q6H PRN for PAIN-MODERATE Prescribed by: Judith Estrada on 06/09/22 181 Pantoprazole Sodium (Pantoprazole Sodium) 40 Mg Tablet.dr, 40 MG PO BID, (Reported) Entered as Reported by: ZHOU WRIGHT on 07/21/20 1215 Prednisone (Prednisone) 50 Mg Tab, 50 MG PO DAILY Prescribed by: EMELIA GARCIA MD on 03/01/22 0552 Sorbitol Solution (Sorbitol) 1 Ml Solution, 15-30 ML PO TID PRN for CONSTIPATION, (Reported) Entered as Reported by: ZHOU WRIGHT on 07/21/20 1215 Sucralfate (Sucralfate) 1 Gm Tablet, 1 GM PO QID PRN for ULCERS, (Reported) Entered as Reported by: ZHOU WRIGHT on 07/21/20 1215 Tizanidine HCl (Tizanidine HCl) 2 Mg Tablet, 2 MG PO BID PRN for MUSCLE SPASMS, (Reported) Entered as Reported by: ZHOU WRIGHT on 01/08/21 1534 Review of Systems Review of Systems Constitutional: No chills; malaise, weakness EENTM: No ear pain, No blurred vision, No double vision Cardiovascular: No chest pain Gastrointestinal: abdominal pain; No diarrhea; nausea, vomiting Genitourinary: No decreased output, No discharge, No dysuria, No frequency Musculoskeletal: back pain; No joint pain (HERBERT ARREDONDO) All Other Systems Reviewed Negative Unless Noted: Yes (HERBERT ARREDONDO) Past Jnsyrqu-Aiaxck-Copkzh Hx Immunizations Up To Date Tetanus Booster (TDap): Less than 5yrs PED Vaccines UTD: Yes First/Initial COVID19 Vaccinat: July 2020 Second COVID19 Vaccination Gunner: August 2020 Third COVID19 Vaccination Date: MAR 13 2021 (HERBERT ARREDONDO) Seasonal Allergies Seasonal Allergies: No (HERBERT ARREDONDO) Past Medical History Surgery/Hospitalization HX: Sepsis/SVT/UTI- Hospitalization, BILATERAL MASTRCTOMY, RIB SPACERS D/T MASTECTOMY. 08/17/21 cleaned extenders in both breasts at . 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 Sexually Transmitted Disease: No HIV/AIDS: No Genitourinary: Yes Kidney Stones, UTI-Chronic Gastrointestinal: Yes Irritable Bowel Musculoskeletal: Yes (CHRONIC GENERALIZED PAIN ) Degenerate Disk Disease, Foot Drop, Scoliosis, Chronic Back Pain, Fractures Endocrine: No (STATES CHEMO HAS AFFECTED BLOOD SUGAR; OBESITY) Diabetes, Non-Insulin dep HEENT: No Loss of Vision: Bilateral Hearing Impairment: Denies Cancer: Yes Breast Did You Recieve Any Treatments: Yes What Type of Treatment Did You: Chemotherapy, Surgical Intervention Psychosocial: Yes (D.I.D.; MULTIPLE OVERDOSES/SUICIDE ATTEMPTS;POLYSUBSTANCE ABUSE) Anxiety, PTSD, Suicide Attempts, Bipolar Integumentary: No Herpes Blood Disorders: Yes (HX OF HYPERCOLAGUABLE STATE) Adverse Reaction/Blood Tranf: No (N/A) (HERBERT ARREDONDO) Family Medical History Antiphospholipid syndrome 19 MOTHER Diabetes mellitus 19 FATHER G8 BROTHER FH: aneurysm 19 FATHER FH: lupus 19 MOTHER FHx: congestive heart failure 19 FATHER FHx: renal failure 19 MOTHER Heart murmur 19 MOTHER Lupus anticoagulant disorder 19 MOTHER Patent foramen ovale 19 FATHER Barry syndrome G8 SISTER SOCIAL HISTORY: -SMOKES 1 PPD -ETOH--HX OF ABUSE/LONGTANDING ALCOHOLISM, NOW "OCCASIONALLY" DRINKS--VERY HEAVY AT TIMES -DRUGS--EXTENSIVE RX DRUG ABUSE, ESPECIALLY NARCOTICS/OPIATES WITH MULTIPLE OVERDOSES AND SUICIDE ATTEMPTS. SHE HAS A HISTORY OF EXTREME NON-COMPLIANCE IN ALL ASPECTS OF CARE. PAST SURGICAL HISTORY: -LOOP RECORDER -BILATERAL MASTECTOMY -PORT PLACEMENT -RIGHT LEG SURGERY PT HAS HISTORY OF PRIOR CVA WITH RIGHT SIDE WEAKNESS 2014 HX OF DVT'S AND P.F.O. WITH ATRIAL SHUNT--NO SURGERY FOR CARDIAC DEFECT (HERBERT ARREDONDO) Physical Exam Vital Signs Vital Signs - First Documented 08/28/22 13:55 Temp 36.7 Pulse 101 Resp 20 B/P (MAP) 118/88 (98) Pulse Ox 99 (MARIA ELENA MORA MD) Vital Signs Capillary Refill : (HERBERT ARREDONDO) Height, Weight, BMI Height: 5'4.00" Weight: 189lbs. 9.0oz. 85.000768na; 38.00 BMI Method:Stated General Appearance: No Apparent Distress, WD/WN Eyes: Bilateral Eye Normal Inspection, Bilateral Eye PERRL, Bilateral Eye EOMI HEENT: PERRL/EOMI, TMs Normal, Normal ENT Inspection, Pharynx Normal Neck: Full Range of Motion, Normal Inspection, Non Tender, Supple Respiratory: Chest Non Tender, Lungs Clear, Normal Breath Sounds, No Accessory Muscle Use Cardiovascular: Regular Rate, Rhythm, No Edema, No Gallop, No JVD Gastrointestinal: Normal Bowel Sounds, No Organomegaly, No Pulsatile Mass, Soft, Tenderness (Right-sided upper and lower abdominal tenderness.) Extremity: Normal Capillary Refill, Normal Inspection, Normal Range of Motion, Non Tender Neurologic/Psychiatric: Alert, Oriented x3, No Motor/Sensory Deficits, Normal Mood/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, circulation 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 II-XII Norm as Tested (HERBERT ARREDONDO) Progress/Results/Core Measures Suspected Sepsis SIRS Temperature: Pulse: 101 Respiratory Rate: 20 Laboratory Tests 08/28/22 14:50: White Blood Count 8.4 Blood Pressure 118 /88 Mean: 98 Laboratory Tests 08/28/22 14:50: Creatinine 0.72, Platelet Count 448H, Total Bilirubin 0.4 (HERBERT ARREDONDO) Results/Orders Lab Results Laboratory Tests Test 08/28/22 14:50 08/28/22 15:15 Range/Units White Blood Count 8.4 4.3-11.0 10^3/uL Red Blood Count 4.83 3.80-5.11 10^6/uL Hemoglobin 12.9 11.5-16.0 g/dL Hematocrit 40 35-52 % Mean Corpuscular Volume 83 80-99 fL Mean Corpuscular Hemoglobin 27 25-34 pg Mean Corpuscular Hemoglobin Concent 32 32-36 g/dL Red Cell Distribution Width 17.2 H 10.0-14.5 % Platelet Count 448 H 130-400 10^3/uL Mean Platelet Volume 9.6 9.0-12.2 fL Immature Granulocyte % (Auto) 0 % Neutrophils (%) (Auto) 50 42-75 % Lymphocytes (%) (Auto) 43 12-44 % Monocytes (%) (Auto) 6 0-12 % Eosinophils (%) (Auto) 0 0-10 % Basophils (%) (Auto) 0 0-10 % Neutrophils # (Auto) 4.2 1.8-7.8 10^3/uL Lymphocytes # (Auto) 3.6 1.0-4.0 10^3/uL Monocytes # (Auto) 0.5 0.0-1.0 10^3/uL Eosinophils # (Auto) 0.0 0.0-0.3 10^3/uL Basophils # (Auto) 0.0 0.0-0.1 10^3/uL Immature Granulocyte # (Auto) 0.0 0.0-0.1 10^3/uL Erythrocyte Sedimentation Rate 32 H 0-20 MM/HR Sodium Level 140 135-145 MMOL/L Potassium Level 3.9 3.6-5.0 MMOL/L Chloride Level 106 98-107 MMOL/L Carbon Dioxide Level 21 21-32 MMOL/L Anion Gap 13 5-14 MMOL/L Blood Urea Nitrogen 14 7-18 MG/DL Creatinine 0.72 0.60-1.30 MG/DL Estimat Glomerular Filtration Rate 110 BUN/Creatinine Ratio 19 Glucose Level 89 70-105 MG/DL Calcium Level 10.1 8.5-10.1 MG/DL Corrected Calcium 9.8 8.5-10.1 MG/DL Magnesium Level 2.1 1.6-2.4 MG/DL Total Bilirubin 0.4 0.1-1.0 MG/DL Aspartate Amino Transf (AST/SGOT) 15 5-34 U/L Alanine Aminotransferase (ALT/SGPT) 14 0-55 U/L Alkaline Phosphatase 67 40-136 U/L C-Reactive Protein High Sensitivity 2.19 H 0.00-0.50 MG/DL Total Protein 7.9 6.4-8.2 GM/DL Albumin 4.4 3.2-4.5 GM/DL Lipase 68 8-78 U/L Thyroid Stimulating Hormone (TSH) 0.35 0.35-4.94 UIU/ML Urine Color YELLOW Urine Clarity CLEAR Urine pH 6.0 5-9 Urine Specific [place] >=1.030 1.016-1.022 Urine Protein NEGATIVE NEGATIVE Urine Glucose (UA) NEGATIVE NEGATIVE Urine Ketones 1+ H NEGATIVE Urine Nitrite NEGATIVE NEGATIVE Urine Bilirubin 1+ H NEGATIVE Urine Urobilinogen 1.0 < = 1.0 MG/DL Urine Leukocyte Esterase NEGATIVE NEGATIVE Urine RBC (Auto) NEGATIVE NEGATIVE Urine RBC 0-2 /HPF Urine WBC 0-2 /HPF Urine Squamous Epithelial Cells 25-50 H /HPF Urine Crystals PRESENT H /LPF Urine Amorphous Sediment RARE MARY URATES H /LPF Urine Bacteria FEW H /HPF Urine Casts NONE /LPF Urine Mucus LARGE H /LPF Urine Culture Indicated NO (MARIA ELENA MORA MD) Vital Signs/I&O 08/28/22 08/28/22 13:55 17:15 Temp 36.7 Pulse 101 95 Resp 20 B/P (MAP) 118/88 (98) 125/86 Pulse Ox 99 99 (MARIA ELENA MORA MD) Vital Signs/I&O Capillary Refill : (HERBERT ARREDONDO) Blood Pressure Mean: 98 Departure Communication (PCP) Reviewed previous ER visits, H&P, lab testing. History of breast cancer 3 years ago. She does have a port. History of mastectomy. She has been having episodes of fatigue, weakness, and bone pain for several months. She states today she has been having increasing symptoms over the past 5 to 6 days. She reports right side abdominal pain with vomiting. [facility], ultrasound right upper quadrant, chest x-ray, EKG with reassuring results. She followed up with Dr. Barlow this past after her visit. Scheduled for follow-up with Dr. Arauz her oncologist once she gets results back from . Differential diagnosis of nephrolithiasis, cholecystitis, cystitis, pyelonephritis, chronic pain. CBC, CMP, lipase, urinalysis was ordered. She received a dose of fentanyl 50 mcg with improvement of pain. Urinalysis was negative for infection or hematuria. CBC, CMP grossly unremarkable. Due to the bone pain ESR and CRP was ordered.'s ESR was 32, CRP at 2. Not significantly elevated and nonspecific. No evidence of joint swelling erythema or warmth suggesting reactive or inflammatory arthritis. CT abdomen and pelvis showed no acute abnormality. Patient states that her pain started to improve some here. No evidence of a surgical abdomen. She was tolerating p.o. fluids at bedside. Discussed if she is having nausea and vomiting after eating may consider PPI as this could be due to GERD versus gastritis. Denies of any dark tarry stool. She does have nausea medication at home. further evaluation with GI/surgery. Recommend follow-up with your oncologist regarding lab work from [facility]. She does not appear toxic or septic. Afebrile with normal white blood count. Outpatient follow-up for patient's symptoms. (HERBERT ARREDONDO) Impression Primary Impression: Chronic pain Additional Impression: Fatigue Disposition: 01 HOME, SELF-CARE Condition: Stable Departure-Patient Inst. Decision time for Depature: 16:23 (HERBERT ARREDONDO) Referrals: [facility] (PCP/Family) Primary Care Physician CORI PATRICIA Patient Instructions: Abdominal Pain, Adult ED Add. Discharge Instructions: Need to follow-up with Dr. Barlow and your oncologist for further evaluation. Take pain medication as needed. All discharge instructions reviewed with patient and/or family. Voiced understanding. Scripts Hydrocodone/Acetaminophen (Hydrocodone-Acetamin 5-325 mg) 5 Mg-325 Mg Tablet 1 TAB PO Q4H PRN for PAIN-MODERATE (5-7), #6 TAB Prov: HERBERT ARREDONDO 08/28/22 ATTENDING PHYSICIAN NOTE: I was physically present as attending physician in the emergency department during the care of this patient, but I was not directly involved in the decision making or delivery of care for this patient. (MARIA ELENA MORA MD) HERBERT ARREDONDO August 28, 2022 14:24 MARIA ELENA MORA MD August 29, 2022 09:13
[2022-08-28] MEDS ORDERED: IOHEXOL 350 MG/ML 100 ML (OMNIPAQUE 350) VIAL IV ONE (14:30)
[2022-08-28] MEDS ORDERED: HOLD METFORMIN - RECEIVED CONTRAST 20 ML VIAL IV SCH (14:30)
[2022-08-28] MEDS ORDERED: NS 100 ML (IVPB) BAG IV ONE (14:30)
[2022-08-28] MEDS ORDERED: ONDANSETRON 4 MG/2 ML (SDV) Z0FRAN IVP ONE (14:30)
[2022-08-28 14:55] LABS: BASOPHILS % (AUTO) 0 % (0-10); EOSINOPHILS % (AUTO) 0 % (0-10); HEMATOCRIT 40 % (35-52); HEMOGLOBIN 12.9 g/dL (11.5-16.0); LYMPHOCYTES # (AUTO) 3.6 10^3/uL (1.0-4.0); LYMPHOCYTES % (AUTO) 43 % (12-44); MEAN CORPUSCULAR HEMOGLOBIN 27 pg (25-34); MEAN CORPUSCULAR HGB CONC 32 g/dL (32-36); MEAN CORPUSCULAR VOLUME 83 fL (80-99); MEAN PLATELET VOLUME 9.6 fL (9.0-12.2); MONOCYTES # (AUTO) 0.5 10^3/uL (0.0-1.0); MONOCYTES % (AUTO) 6 % (0-12); NEUTROPHILS # (AUTO) 4.2 10^3/uL (1.8-7.8); NEUTROPHILS % (AUTO) 50 % (42-75); PLATELET COUNT 448 10^3/uL (130-400); WHITE BLOOD COUNT 8.4 10^3/uL (4.3-11.0)
[2022-08-28 15:13] LABS: ALBUMIN 4.4 GM/DL (3.2-4.5); POTASSIUM 3.9 MMOL/L (3.6-5.0)
[2022-08-28 15:14] LABS: CALCIUM 10.1 MG/DL (8.5-10.1)
[2022-08-28 15:16] LABS: TOTAL PROTEIN 7.9 GM/DL (6.4-8.2)
[2022-08-28 15:17] LABS: BILIRUBIN,TOTAL 0.4 MG/DL (0.1-1.0)
[2022-08-28 15:19] LABS: CREATININE SERUM 0.72 MG/DL (0.60-1.30)
[2022-08-28 15:22] LABS: MAGNESIUM 2.1 MG/DL (1.6-2.4)
[2022-08-28 15:28] LABS: CLARITY,URINE CLEAR; COLOR,URINE YELLOW; GLUCOSE, URINE (UA) NEGATIVE (NEGATIVE); KETONES,URINE 1+ (NEGATIVE); LEUKOCYTE ESTERASE ,URINE NEGATIVE (NEGATIVE); NITRITE,URINE NEGATIVE (NEGATIVE); PROTEIN,URINE NEGATIVE (NEGATIVE)
[2022-08-28 15:35] LABS: ERYTHROCYTE SEDIMENTATION RATE 32 MM/HR (0-20)
[2022-08-28 15:53] LABS: AMORPHOUS SEDIMENT,UR RARE AMOR URATES /LPF; BACTERIA,URINE FEW /HPF; RBC,URINE 0-2 /HPF; SQUAMOUS EPITHELIAL CELL,UR 25-50 /HPF; WBC,URINE 0-2 /HPF
[2022-08-28 15:54] LABS: BILIRUBIN,URINE 1+ (NEGATIVE)
--- NOTE | 2022-08-28 16:03 | Diagnostic Imaging Report ---
PROCEDURE: CT abdomen and pelvis with contrast. TECHNIQUE: Multiple contiguous axial images were obtained through the abdomen and pelvis after administration of intravenous contrast. Auto Exposure Controls were utilized during the CT exam to meet ALARA standards for radiation dose reduction. All CT scans use one or more of the following dose optimizing techniques: automated exposure control, MA and/or KvP adjustment based on patient size and exam type or iterative reconstruction. INDICATION: Lateral right abdominal pain. COMPARISON: 02/03/2022. FINDINGS: Lung bases are clear. The heart is normal in size. There is no pericardial effusion. There are surgical clips in the chest, bilaterally. The liver demonstrates no focal lesion. There is mild fatty infiltration along the falciform ligament. The spleen appears normal. The pancreas is normal. The adrenal glands appear normal. The kidneys demonstrate no enhancing lesion. Hyperdensities in the kidneys are thought to represent contrast excretion rather than calculi. There is no hydronephrosis. The bowel loops are nondistended without obstruction. The appendix is normal. There is mild to moderate stool in the colon. No free fluid or free air is seen. The aorta is normal in caliber. There is no lymphadenopathy. No acute osseous abnormality is seen. IMPRESSION: No acute abnormality is seen in the abdomen or pelvis. Dictated by: Dictated on workstation # [id number]
[2022-08-28] MEDS ORDERED: ACHD5005 PO (16:24)
[2022-08-28 17:15] VITALS: BP 125/86
== END 2022-08-28 17:15 | disposition home or self-care (01) ==
LOC: EDUNIT# 13:41 → ER 13:44
DX: G89.29 Other chronic pain (principal); R53.83 Other fatigue; R10.31 Right lower quadrant pain; R10.11 Right upper quadrant pain; R11.2 Nausea with vomiting, unspecified; E66.9 Obesity, unspecified; F17.210 Nicotine dependence, cigarettes, uncomplicated; Z68.38 Body mass index [BMI] 38.0-38.9, adult; Z91.040 Latex allergy status
CPT/HCPCS: 36415; 74177; 80053; 81000; 83690; 83735; 84443; 85025; 85652; 86141

== ENCOUNTER → 2022-11-02 | Outpatient (CLI) | payer MEDICARE, MEDICAID ==
[~2022-11-02] MED LIST changes: +RT-ALBUTEROL SULF 2.5 MG/3 ML PRE-MIX VIAL INH ONE
== END ==
LOC: CARD 07:21
PROVIDERS: ATTEND Pediatrics
DX: I51.7 Cardiomegaly (principal)
CPT/HCPCS: 93306; 94060; 94726; 94729

== ENCOUNTER 2022-11-07 10:27 | Emergency (ER) | payer MEDICARE, MEDICAID ==
[~2022-11-07] VITALS: Ht 154.9 cm; Wt 102.1 kg
[~2022-11-07 10:27] MED LIST changes: -RT-ALBUTEROL SULF 2.5 MG/3 ML PRE-MIX VIAL INH ONE
--- NOTE | 2022-11-07 11:01 | ED Chest Pain ---
General Chief Complaint: Chest Pain Stated Complaint: DIZZINESS/ BLOOD PRESSURE PROBLEMS Nursing Triage Note: PT AMBULATE TO ROOM 03 WITHOUT DIFFICULTY WITH C/O CHEST "COLDNESS", DIZZYNESS, SOB, HEADACHE X3 DAYS. 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 Source: patient Exam Limitations: no limitations History of Present Illness Date Seen by Provider: Nov 07, 2022 Time Seen by Provider: 10:43 Initial Comments This 37-year-old woman presents to the emergency room with complaints of headache, dizziness, labile hypertension, and a vaguely described chest pressure. The chest pressure at times feels like a heaviness and other times feels like a cold sensation. She has felt ill for about 3 days. She has had elevated temperatures but nothing above 99.4. She has had some mild dry cough and shortness of breath. She denies nausea, vomiting, or diarrhea. She has had some scleral erythema of the right eye. She denies any exposures to ill indivi duals. She rates her headache pain as 6 out of 10. She took aspirin 162 mg this morning. She has history of an air embolism causing CVA which she reports was a complication of PFO. She also has a history of triple negative breast cancer in remission. She has history of a right tib-fib fracture resulting in compartment syndrome and DVT. She had an IVC filter placed and removed. She is not presently anticoagulated. Her primary care provider is Dr. Luo. Her local oncologist is Dr. Walter. Her breast cancer team is at [facility]. Her pharmacy is [email or web address]. Allergies and Home Medications Allergies Coded Allergies: aprepitant (Verified Allergy, Severe, 05/14/20) PATIENT STATES COULD NOT BREATH fosaprepitant (Verified Allergy, Severe, 05/14/20) PATIENT STATES COULD NOT BREATH latex (Verified Allergy, Severe, BLISTERS, 08/24/17) penicillin (Verified Allergy, Severe, ITCHING, 08/24/17) Sulfa (Sulfonamide Antibiotics) (Verified Allergy, Unknown, RASH, 08/24/17) Uncoded Allergies: STAWBERRIES (Allergy, Mild, RASH, 09/04/20) Patient Home Medication List Home Medication List Reviewed: Yes Acetaminophen (Tylenol Extra Strength) 500 Mg Tablet, 500-1,000 MG PO Q6H PRN for PAIN-MILD (1-4), (Reported) Entered as Reported by: ZHOU WRIGHT on 07/21/20 1215 Albuterol Sulfate (Ventolin Hfa) 90 Mcg Hfa.aer.ad, 2 PUFF INH Q4H Prescribed by: EMELIA GARCIA MD on 03/01/22 0552 Apixaban (Eliquis) 2.5 Mg Tablet, 2.5 MG PO BID Prescribed by: MARIA ELENA FISHER on 03/10/221999 Aspirin/Acetaminophen/Caffeine (Excedrin Migraine Caplet) 1 Each Tablet, 2 EACH PO Q6-8HR PRN for Headache, (Reported) Entered as Reported by: ZHOU WRIGHT on 07/21/20 1215 Benzonatate (Tessalon Perles) 100 Mg Capsule, 200 MG PO TID PRN for cough Prescribed by: RICHELLE MULTANI on 04/11/22 1101 Calcium Carbonate (Tums Ultra) 400 Mg Tab.chew, 400-800 MG PO Q6H PRN for INDIGESTION, (Reported) Entered as Reported by: ZHOU WRIGHT on 07/21/20 1215 Cetirizine HCl (Zyrtec) 10 Mg Tablet, 10 MG PO DAILY PRN for ALLERGY SYMPTOMS, (Reported) Entered as Reported by: ZHOU WRIGHT on 07/21/20 1215 Cholecalciferol (Vitamin D3) (Vitamin D3) 1,250 Mcg Capsule, 1,250 MCG PO FRI, (Reported) Entered as Reported by: ZHOU WRIGHT on 01/08/21 153 Cyclosporine (Restasis) 1 Each Droperette, 1 DROP OU BID, (Reported) Entered as Reported by: ZHOU WRIGHT on 07/21/20 1215 Docusate Sodium (Colace) 100 Mg Capsule, 100 MG PO DAILY Prescribed by: MARIA ELENA FISHER on 03/10/221999 Gabapentin (Neurontin) 300 Mg Capsule, 300 MG PO HS PRN for PAIN-BREAKTHROUGH, (Reported) Entered as Reported by: ZHOU WRIGHT on 01/08/21 1534 Hydrocodone Bit/Acetaminophen (HYDROcodone/APAP 5 MG/325 MG TAB) 1 Tab Tab, 1-2 TAB PO Q4H PRN for PAIN-MODERATE (5-7) Prescribed by: VALERIA GUILLERMO on 05/08/21 0644 Hydrocodone/Acetaminophen (Hydrocodone-Acetamin 5-325 mg) 5 Mg-325 Mg Tablet, 1 TAB PO Q4H PRN for PAIN-MODERATE (5-7) Prescribed by: JUAN POZO on 09/03/21 1549 Hydrocodone/Acetaminophen (Hydrocodone-Acetamin 5-325 mg) 5 Mg-325 Mg Tablet, 1 TAB PO Q4H PRN for PAIN-MODERATE (5-7) Prescribed by: JOEL VALENTE on 12/23/21 1544 Hydrocodone/Acetaminophen (Hydrocodone-Acetamin 5-325 mg) 5 Mg-325 Mg Tablet, 1 TAB PO Q6H PRN for PAIN-MODERATE (5-7) Prescribed by: RICHELLE MULTANI on 04/11/22 1102 Hydrocodone/Acetaminophen (Hydrocodone-Acetamin 5-325 mg) 5 Mg-325 Mg Tablet, 1 TAB PO Q4H PRN for PAIN-MODERATE (5-7) Prescribed by: JUAN POZO on 06/27/22 1916 Hydrocodone/Acetaminophen (Hydrocodone-Acetamin 5-325 mg) 5 Mg-325 Mg Tablet, 1 TAB PO Q4H PRN for PAIN-MODERATE (5-7) Prescribed by: JUAN POZO on 08/28/22 1624 Levofloxacin (Levofloxacin) 500 Mg Tablet, 500 MG PO DAILY Prescribed by: JOEL VALENTE on 12/23/21 1246 Lurasidone HCl (Latuda) 80 Mg Tablet, 80 MG PO 1800 W/MEAL, (Reported) Entered as Reported by: ZHOU WRIGHT on 09/04/20 1047 Metoprolol Succinate (Metoprolol Succinate) 50 Mg Tab.er.24h, 50 MG PO BID, (Reported) Entered as Reported by: ZHOU WRIGHT on 09/04/20 1047 Nitrofurantoin Monohyd/M-Cryst (Macrobid 100 mg Capsule) 100 Mg Capsule, 1 TAB PO BID Prescribed by: JUAN GONZALEZ on 07/05/22 2136 Ondansetron (Ondansetron Odt) 4 Mg Tab.rapdis, 4 MG SL Q8H PRN for NAUSEA/VOMITING Prescribed by: RICHELLE MULTANI on 04/11/22 1101 Ondansetron HCl (Ondansetron HCl) 8 Mg Tablet, 8 MG PO Q8H PRN for FRDEY SEA/VOMITING-1ST LINE, (Reported) Entered as Reported by: ZHOU WRIGHT on 07/21/20 121 Oxycodone HCl/Acetaminophen (Percocet 5-325 mg Tablet) 1 Each Tablet, 1 TAB PO Q4H Prescribed by: MARIA ELENA FISHER on 03/10/222000 Oxycodone HCl/Acetaminophen (Percocet 5-325 mg Tablet) 5 Mg-325 Mg Tablet, 1 TAB PO Q6H PRN for PAIN-MODERATE Prescribed by: Judith Estrada on 06/09/22 1818 Pantoprazole Sodium (Pantoprazole Sodium) 40 Mg Tablet.dr, 40 MG PO BID, (Reported) Entered as Reported by: ZHOU WRIGHT on 07/21/20 121 Prednisone (Prednisone) 50 Mg Tab, 50 MG PO DAILY Prescribed by: EMELIA GARCIA MD on 03/01/22 0552 Sorbitol Solution (Sorbitol) 1 Ml Solution, 15-30 ML PO TID PRN for CONSTIPATION, (Reported) Entered as Reported by: ZHOU WRIGHT on 07/21/20 121 Sucralfate (Sucralfate) 1 Gm Tablet, 1 GM PO QID PRN for ULCERS, (Reported) Entered as Reported by: ZHOU WRIGHT on 07/21/20 121 Tizanidine HCl (Tizanidine HCl) 2 Mg Tablet, 2 MG PO BID PRN for MUSCLE SPASMS, (Reported) Entered as Reported by: ZHOU WRIGHT on 01/08/21 1534 Review of Systems Review of Systems Constitutional: see HPI EENTM: See HPI Respiratory: See HPI Cardiovascular: See HPI Gastrointestinal: No Symptoms Reported Genitourinary: No Symptoms Reported Musculoskeletal: no symptoms reported Skin: no symptoms reported Psychiatric/Neurological: See HPI Endocrine: No Symptoms Reported Hematologic/Lymphatic: No Symptoms Reported Past Zkkonuc-Sbvdym-Hsxcma Hx Patient Social History Tobacco Use?: Yes Tobacco type used: Cigarettes Smoking Status: Current Everyday Smoker Smokeless Tobacco Frequency: Never a User Use of E-Cig and/or Vaping dev: No Use of E-Cig and/or Vaping Justo: Never a User Substance use?: No Alcohol Use?: No Pt feels they are or have been: No Immunizations Up To Date Tetanus Booster (TDap): Less than 5yrs PED Vaccines UTD: Yes First/Initial COVID19 Vaccinat: July 2020 Second COVID19 Vaccination Gunner: August 2020 Third COVID19 Vaccination Date: MAR 13 2021 Seasonal Allergies Seasonal Allergies: No Past Medical History Surgery/Hospitalization HX: Sepsis/SVT/UTI- Hospitalization, BILATERAL MASTRCTOMY, RIB SPACERS D/T MASTECTOMY. 08/17/21 cleaned extenders in both breasts at . 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: 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 Sexually Transmitted Disease: No HIV/AIDS: No Genitourinary: Yes Kidney Stones, UTI-Chronic Gastrointestinal: Yes Irritable Bowel Musculoskeletal: Yes (CHRONIC GENERALIZED PAIN ) Degenerate Disk Disease, Foot Drop, Scoliosis, Chronic Back Pain, Fractures Endocrine: No (STATES CHEMO HAS AFFECTED BLOOD SUGAR; OBESITY) Diabetes, Non-Insulin dep HEENT: No Loss of Vision: Bilateral Hearing Impairment: Denies Cancer: Yes Breast Did You Recieve Any Treatments: Yes What Type of Treatment Did You: Chemotherapy, Surgical Intervention Psychosocial: Yes (D.I.D.; MULTIPLE OVERDOSES/SUICIDE ATTEMPTS;POLYSUBSTANCE ABUSE) Anxiety, PTSD, Suicide Attempts, Bipolar Integumentary: No Herpes Blood Disorders: Yes (HX OF HYPERCOLAGUABLE STATE) Adverse Reaction/Blood Tranf: No (N/A) Family Medical History Antiphospholipid syndrome 19 MOTHER Diabetes mellitus 19 FATHER G8 BROTHER FH: aneurysm 19 FATHER FH: lupus 19 MOTHER FHx: congestive heart failure 19 FATHER FHx: renal failure 19 MOTHER Heart murmur 19 MOTHER Lupus anticoagulant disorder 19 MOTHER Patent foramen ovale 19 FATHER Barry syndrome G8 SISTER SOCIAL HISTORY: -SMOKES 1 PPD -ETOH--HX OF ABUSE/LONGTANDING ALCOHOLISM, NOW "OCCASIONALLY" DRINKS--VERY HEAVY AT TIMES -DRUGS--EXTENSIVE RX DRUG ABUSE, ESPECIALLY NARCOTICS/OPIATES WITH MULTIPLE OVERDOSES AND SUICIDE ATTEMPTS. SHE HAS A HISTORY OF EXTREME NON-COMPLIANCE IN ALL ASPECTS OF CARE. PAST SURGICAL HISTORY: -LOOP RECORDER -BILATERAL MASTECTOMY -PORT PLACEMENT -RIGHT LEG SURGERY PT HAS HISTORY OF PRIOR CVA WITH RIGHT SIDE WEAKNESS 2013 HX OF DVT'S AND P.F.O. WITH ATRIAL SHUNT--NO SURGERY FOR CARDIAC DEFECT Physical Exam Vital Signs Vital Signs - First Documented 11/07/22 11/07/22 10:33 12:55 Temp 37.6 Pulse 107 Resp 18 B/P (MAP) 153/104 (120) Pulse Ox 97 O2 Delivery Room Air Capillary Refill : Less Than 3 Seconds Height, Weight, BMI Height: 5'4.00" Weight: 189lbs. 9.0oz. 85.862658hl; 42.00 BMI Method:Stated General Appearance: WD/WN, Mild Distress HEENT: Normal ENT Inspection, Pharynx Normal Neck: Normal Inspection Respiratory: Chest Non Tender, Lungs Clear, Normal Breath Sounds, No Accessory Muscle Use, No Respiratory Distress Cardiovascular: No Edema, No Murmur, Tachycardia (Regular) Gastrointestinal: Normal Bowel Sounds, Non Tender, Soft Extremity: Normal Inspection, Non Tender, No Calf Tenderness, No Pedal Edema, Other (Posttraumatic and surgical scars on the right lower leg. Negative Hannah) Neurologic/Psychiatric: Alert, Oriented x3, No Motor/Sensory Deficits, Normal Mood/Affect Skin: Normal Color, Warm/Dry Progress/Results/Core Measures Results/Orders Lab Results Laboratory Tests Test 11/07/22 10:49 11/07/22 11:40 Range/Units White Blood Count 7.6 4.3-11.0 10^3/uL Red Blood Count 4.49 3.80-5.11 10^6/uL Hemoglobin 12.4 11.5-16.0 g/dL Hematocrit 38 35-52 % Mean Corpuscular Volume 85 80-99 fL Mean Corpuscular Hemoglobin 28 25-34 pg Mean Corpuscular Hemoglobin Concent 33 32-36 g/dL Red Cell Distribution Width 16.3 H 10.0-14.5 % Platelet Count 388 130-400 10^3/uL Mean Platelet Volume 9.5 9.0-12.2 fL Immature Granulocyte % (Auto) 1 % Neutrophils (%) (Auto) 59 42-75 % Lymphocytes (%) (Auto) 33 12-44 % Monocytes (%) (Auto) 7 0-12 % Eosinophils (%) (Auto) 0 0-10 % Basophils (%) (Auto) 1 0-10 % Neutrophils # (Auto) 4.5 1.8-7.8 10^3/uL Lymphocytes # (Auto) 2.5 1.0-4.0 10^3/uL Monocytes # (Auto) 0.5 0.0-1.0 10^3/uL Eosinophils # (Auto) 0.0 0.0-0.3 10^3/uL Basophils # (Auto) 0.0 0.0-0.1 10^3/uL Immature Granulocyte # (Auto) 0.0 0.0-0.1 10^3/uL Prothrombin Time 13.9 12.2-14.7 SEC INR Comment 1.1 0.8-1.4 Activated Partial Thromboplast Time 40 H 24-35 SEC D-Dimer 0.32 0.00-0.49 UG/ML Sodium Level 141 135-145 MMOL/L Potassium Level 3.8 3.6-5.0 MMOL/L Chloride Level 108 H 98-107 MMOL/L Carbon Dioxide Level 24 21-32 MMOL/L Anion Gap 9 5-14 MMOL/L Blood Urea Nitrogen 9 7-18 MG/DL Creatinine 0.67 0.60-1.30 MG/DL Estimat Glomerular Filtration Rate 115 BUN/Creatinine Ratio 13 Glucose Level 94 70-105 MG/DL Calcium Level 9.6 8.5-10.1 MG/DL Corrected Calcium 9.5 8.5-10.1 MG/DL Magnesium Level 1.8 1.6-2.4 MG/DL Total Bilirubin 0.2 0.1-1.0 MG/DL Aspartate Amino Transf (AST/SGOT) 17 5-34 U/L Alanine Aminotransferase (ALT/SGPT) 21 0-55 U/L Alkaline Phosphatase 59 40-136 U/L Myoglobin 18.5 10.0-92.0 NG/ML Troponin I < 0.028 <0.028 NG/ML C-Reactive Protein High Sensitivity 0.43 0.00-0.50 MG/DL Total Protein 7.3 6.4-8.2 GM/DL Albumin 4.1 3.2-4.5 GM/DL Influenza Type A (RT-PCR) Not Detected Not Detecte Influenza Type B (RT-PCR) Not Detected Not Detecte SARS-CoV-2 RNA (RT-PCR) Not Detected Not Detecte My Orders Orders - MARIA ELENA MORA MD Ekg Tracing (11/07/22 10:35) Cbc With Automated Diff (11/07/22 10:57) Magnesium (11/07/22 10:57) Chest 1 View, Ap/Pa Only (11/07/22 10:57) Comprehensive Metabolic Panel (11/07/22 10:57) Myoglobin Serum (11/07/22 10:57) Protime With Inr (11/07/22 10:57) Partial Thromboplastin Time (11/07/22 10:57) O2 (11/07/22 10:57) Monitor-Rhythm Ecg Trace Only (11/07/22 10:57) Ed Iv/Invasive Line Start (11/07/22 10:57) Fibrin Degradation Products (11/07/22 10:57) Troponin I [place] (11/07/22 10:57) Hs C Reactive Protein (11/07/22 10:57) Covid 19 Inhouse Test (11/07/22 10:57) Influenza A And B By Pcr (11/07/22 10:57) Heparin (Central Iv Flush) (Heparin (Ander (11/07/22 12:52) Vital Signs/I&O 11/07/22 11/07/22 10:33 12:55 Temp 37.6 Pulse 107 92 Resp 18 16 B/P (MAP) 153/104 (120) 145/87 Pulse Ox 97 O2 Delivery Room Air Room Air Blood Pressure Mean: 120 Progress Progress Note #1: Time: 10:59 Progress Note Patient was interviewed and examined at 1043. She declined any immediate treatment for pain. Chest pain work-up is being pursued. EKG was interpreted by me. Sinus tachycardia was noted without any other significant abnormalities. D-dimer, influenza, COVID-19, and CRP studies have been added to the chest pain work-up. Further work-up and treatment will be based on results of studies and progress. Progress Note #2: Time: 12:00 Progress Note Labs have been reviewed and interpreted by me. They are all grossly unremarkable including CBC, CMP, magnesium, troponin, CRP, coagulation panel, and D-dimer. Swabs for influenza and COVID-19 are still pending. Chest x-ray was viewed by me. I appreciated postoperative changes including thu and port placement. I did not appreciate any acute abnormalities on my interpretation. Radiologist concurred with this opinion. ECG demonstrated sinus tachycardia with no other acute abnormalities by my interpretation. Progress Note #3: Time: 12:20 Progress Note Patient was reassessed. Findings of her labs, EKG, and x-ray were reviewed with her. She is feeling notably better without any particular intervention. Heart rate is now 80. Blood pressure has normalized without treatment. She was offered Toradol for her residual headache but declined. She will take Tylenol and ibuprofen at home. We reviewed discharge instructions and return precautions. See discharge instructions for further discussion. Initial ECG Impression Date: Nov 07, 2022 Initial ECG Impression Time: 10:44 Initial ECG Rate: 104 Initial ECG Rhythm: S.Tach Comment Sinus tachycardia with no ST elevation or depression. No abnormal intervals or axis deviation. Diagnostic Imaging Diagonstic Imaging: Xray Plain Films/CT/US/NM/MRI: chest Comments NAME: COLTON ORTIZ [facility] REC#: [id number] PT STATUS: REG ER : 1985 PHYSICIAN: MARIA ELENA MORA MD ADMIT DATE: 11/07/22/ER Signed Date of Exam:11/07/22 CHEST 1 VIEW, AP/PA ONLY EXAMINATION: Chest 1 view HISTORY: Chest pain. Shortness of breath. Headache. COMPARISON: 04/11/2022. FINDINGS: Right-sided port is seen with the tip in the low SVC. The lung volumes are normal. No focal consolidation is seen. No large pleural effusion or pneumothorax is seen. The cardiomediastinal silhouette is normal in size and contour. No acute osseous abnormality is seen. Surgical clips are seen overlying the chest. IMPRESSION: 1. No acute pleuroparenchymal process. Dictated by: Dictated on workstation # [id number] Dict: 11/07/22 1127 Trans: 11/07/22 1140 [facility] [id number] Interpreted by: MERCEDES PEREZ DO Electronically signed by: MERCEDES PEREZ DO 11/07/22 1140 Departure Impression Primary Impression: Flu-like symptoms Additional Impressions: Acute headache Qualified Codes: R51.9 - Headache, unspecified Chest discomfort Disposition: 01 HOME, SELF-CARE Condition: Improved Departure-Patient Inst. Decision time for Depature: 12:20 Referrals: [facility] (PCP/Family) Primary Care Physician Patient Instructions: Chest Pain That Is Not Caused by the Heart (DC), VIRAL SYNDROME Add. Discharge Instructions: The exact cause of your symptoms are not certain but they may be related to a viral flulike syndrome. Drink plenty of clear liquids to stay well-hydrated. You may take Tylenol (acetaminophen) up to 1000 mg every 6 hours as needed. Unless otherwise instructed by your other physicians, you may additionally take ibuprofen up to 600 mg every 6 hours as needed for temporary treatment of pain not controlled by Tylenol. Work toward quitting smoking/vaping as rapidly as possible. Return to the emergency room if you have worsening symptoms despite following these instructions. Always return to the emergency room if you have symptoms of stroke that would include numbness or weakness of the body part, facial drooping, confusion, sudden vision changes, difficulty understanding or generating speech, etc. Also return to the ER if you have worsening chest pain or shortness of breath or headache that is unusual for you. Follow-up with your primary care provider soon as possible. Please call in the morning to schedule an appointment. All discharge instructions reviewed with patient and/or family. Voiced understanding. Copy Copies To 1: ZHOU LUO V DO Copies To 2: CORI WALTER JOSHUA T MD Nov 07, 2022 11:01
[2022-11-07 11:02] LABS: BASOPHILS % (AUTO) 1 % (0-10); EOSINOPHILS % (AUTO) 0 % (0-10); HEMATOCRIT 38 % (35-52); HEMOGLOBIN 12.4 g/dL (11.5-16.0); LYMPHOCYTES # (AUTO) 2.5 10^3/uL (1.0-4.0); LYMPHOCYTES % (AUTO) 33 % (12-44); MEAN CORPUSCULAR HEMOGLOBIN 28 pg (25-34); MEAN CORPUSCULAR HGB CONC 33 g/dL (32-36); MEAN CORPUSCULAR VOLUME 85 fL (80-99); MEAN PLATELET VOLUME 9.5 fL (9.0-12.2); MONOCYTES # (AUTO) 0.5 10^3/uL (0.0-1.0); MONOCYTES % (AUTO) 7 % (0-12); NEUTROPHILS # (AUTO) 4.5 10^3/uL (1.8-7.8); NEUTROPHILS % (AUTO) 59 % (42-75); PLATELET COUNT 388 10^3/uL (130-400); WHITE BLOOD COUNT 7.6 10^3/uL (4.3-11.0)
[2022-11-07 11:07] LABS: ALBUMIN 4.1 GM/DL (3.2-4.5); CHLORIDE 108 MMOL/L (98-107); INR 1.1 (0.8-1.4); POTASSIUM 3.8 MMOL/L (3.6-5.0); PROTHROMBIN TIME PATIENT 13.9 SEC (12.2-14.7); SODIUM 141 MMOL/L (135-145)
[2022-11-07 11:08] LABS: CALCIUM 9.6 MG/DL (8.5-10.1)
[2022-11-07 11:09] LABS: GLUCOSE 94 MG/DL (70-105)
[2022-11-07 11:10] LABS: FIBRIN DEGRADATION PRODUCTS 0.32 UG/ML (0.00-0.49); TOTAL PROTEIN 7.3 GM/DL (6.4-8.2)
[2022-11-07 11:11] LABS: BILIRUBIN,TOTAL 0.2 MG/DL (0.1-1.0); CARBON DIOXIDE 24 MMOL/L (21-32)
[2022-11-07 11:13] LABS: ALKALINE PHOSPHATASE 59 U/L (40-136); CREATININE SERUM 0.67 MG/DL (0.60-1.30); GFR ESTIMATED 115
[2022-11-07 11:14] LABS: BUN/CREATININE RATIO 13
[2022-11-07 11:16] LABS: ALANINE AMINOTRANSFERASE 21 U/L (0-55); MAGNESIUM 1.8 MG/DL (1.6-2.4)
--- NOTE | 2022-11-07 11:30 | Diagnostic Imaging Report ---
EXAMINATION: Chest 1 view HISTORY: Chest pain. Shortness of breath. Headache. COMPARISON: 04/11/2022. FINDINGS: Right-sided port is seen with the tip in the low SVC. The lung volumes are normal. No focal consolidation is seen. No large pleural effusion or pneumothorax is seen. The cardiomediastinal silhouette is normal in size and contour. No acute osseous abnormality is seen. Surgical clips are seen overlying the chest. IMPRESSION: 1. No acute pleuroparenchymal process. Dictated by: Dictated on workstation # [id number]
[2022-11-07] MEDS ORDERED: HEParin (CENTRAL IV FLUSH) 500 UNIT/5 ML SYR ONE (12:52)
[2022-11-07 12:55] VITALS: BP 145/87
== END 2022-11-07 12:55 | disposition home or self-care (01) ==
LOC: EDUNIT# 10:27 → ER 10:29
DX: R51.9 Headache, unspecified (principal); R07.89 Other chest pain; R00.0 Tachycardia, unspecified; E66.9 Obesity, unspecified; F17.210 Nicotine dependence, cigarettes, uncomplicated; Z95.818 Presence of other cardiac implants and grafts; Z68.41 Body mass index [BMI] 40.0-44.9, adult; Z20.822 Contact with and (suspected) exposure to COVID-19; Z91.040 Latex allergy status
CPT/HCPCS: 36415; 71045; 80053; 83735; 83874; 84484; 85025; 85379; 85610; 85730; 86141; 87636; 93005

== ENCOUNTER → 2022-12-11 | Outpatient (CLI) | payer MEDICARE, MEDICAID ==
--- NOTE | 2022-12-11 09:27 | Diagnostic Imaging Report ---
Left hand series. INDICATION: Hand injury and 3rd finger pain. COMPARISON: 08/17/2018 Alignment of the left hand is normal. There are no findings of dislocation. There is no evidence of cortical disruption or an acute fracture. No fracture of the 3rd finger evident. There is no focal soft tissue abnormality or foreign body. IMPRESSION: 1. Negative radiographs of the left hand. Dictated by: Dictated on workstation # [id number]
== END ==
LOC: RAD 09:01
PROVIDERS: ATTEND Nurse Practitioner Family
DX: S69.92XA Unspecified injury of left wrist, hand and finger(s), initial encounter (principal); M79.645 Pain in left finger(s); M79.642 Pain in left hand; X58.XXXA Exposure to other specified factors, initial encounter
CPT/HCPCS: 73130

== ENCOUNTER 2023-01-10 20:27 | Emergency (ER) | payer MEDICARE, MEDICAID ==
[~2023-01-10] VITALS: Ht 154.9 cm; Wt 90.7 kg
[~2023-01-10 20:27] MED LIST changes: +DICY-11 PO; -DICY10CA12 PO
[2023-01-10 20:52] LABS: BASOPHILS # (AUTO) 0.1 10^3/uL (0.0-0.1); BASOPHILS % (AUTO) 0 % (0-10); EOSINOPHILS % (AUTO) 0 % (0-10); HEMATOCRIT 36 % (35-52); HEMOGLOBIN 11.6 g/dL (11.5-16.0); LYMPHOCYTES # (AUTO) 4.9 10^3/uL (1.0-4.0); LYMPHOCYTES % (AUTO) 44 % (12-44); MEAN CORPUSCULAR HEMOGLOBIN 28 pg (25-34); MEAN CORPUSCULAR HGB CONC 32 g/dL (32-36); MEAN CORPUSCULAR VOLUME 87 fL (80-99); MEAN PLATELET VOLUME 9.7 fL (9.0-12.2); MONOCYTES # (AUTO) 0.8 10^3/uL (0.0-1.0); MONOCYTES % (AUTO) 7 % (0-12); NEUTROPHILS # (AUTO) 5.4 10^3/uL (1.8-7.8); NEUTROPHILS % (AUTO) 48 % (42-75); PLATELET COUNT 423 10^3/uL (130-400); WHITE BLOOD COUNT 11.2 10^3/uL (4.3-11.0)
--- NOTE | 2023-01-10 20:58 | ED Chest Pain ---
General Chief Complaint: Chest Pain Stated Complaint: CHEST PAIN Nursing Triage Note: PATIENT STATES THAT SHE WAS WATCHING TV WHEN HER CHEST PAIN STARTED AND SHE CALLED EMS. SHE DESCRIBES IT TIGHTNESS MIGRATING UP TO HER LEFT JAW AND DOWN HER LEFT ARM. SHE RECEIVED 324 ASA IN THE AMBULANCE AND HER PAIN HAS CONTINUED TO GET BETTER AND SHE RATES IT 3/10. Source: patient, EMS, old records Exam Limitations: no limitations History of Present Illness Date Seen by Provider: Jan 10, 2023 Time Seen by Provider: 20:31 Initial Comments This 37-year-old woman presents to the emergency room via EMS with complaints of pain in the left upper chest radiating up to the left neck. Chest pain started while sitting in a chair watching television just prior to the EMS call. She received aspirin 324 mg by EMS. Vital signs are relatively unremarkable for EMS with minor tachycardia at 102 bpm. She describes a cold sensation in her chest and then a sensation of sharp heat. Those feelings gave way to a sensation of heaviness. She reports pain was 10 out of 10 at its worst. It is now 3/10. The pain feels more in the left posterior shoulder than the chest now. She reports increased generalized edema recently and decreased appetite. She has history of a PFO and had SVT. She was referred to Dr. Aguirre for ablation but she did not follow through with the procedure. She has history of IVC filter placement and removal. Stress test in 2020 was negative for ischemia, and EF was 69%. Echo in 2014 demonstrated secundum atrial septal defect with left to right shunt. Shunt was not seen during GUTIERREZ 2017. 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 Pringle. Primary care provider is Dr. Luo. Allergies and Home Medications Allergies Coded Allergies: aprepitant (Verified Allergy, Severe, 05/14/20) PATIENT STATES COULD NOT BREATH fosaprepitant (Verified Allergy, Severe, 05/14/20) PATIENT STATES COULD NOT BREATH latex (Verified Allergy, Severe, BLISTERS, 08/24/17) penicillin (Verified Allergy, Severe, ITCHING, 08/24/17) Sulfa (Sulfonamide Antibiotics) (Verified Allergy, Unknown, RASH, 08/24/17) Uncoded Allergies: STAWBERRIES (Allergy, Mild, RASH, 09/04/20) Patient Home Medication List Home Medication List Reviewed: Yes Acetaminophen (Tylenol Extra Strength) 500 Mg Tablet, 500-1,000 MG PO Q6H PRN for PAIN-MILD (1-4), (Reported) Entered as Reported by: ZHOU WRIGHT on 07/21/20 1215 Albuterol Sulfate (Ventolin Hfa) 90 Mcg Hfa.aer.ad, 2 PUFF INH Q4H Prescribed by: EMELIA GARCIA MD on 03/01/22 0552 Apixaban (Eliquis) 2.5 Mg Tablet, 2.5 MG PO BID Prescribed by: MARIA ELENA FISHER on 03/10/221999 Aspirin/Acetaminophen/Caffeine (Excedrin Migraine Caplet) 1 Each Tablet, 2 EACH PO Q6-8HR PRN for Headache, (Reported) Entered as Reported by: ZHOU WRIGHT on 07/21/20 1215 Benzonatate (Tessalon Perles) 100 Mg Capsule, 200 MG PO TID PRN for cough Prescribed by: RICHELLE MULTANI on 04/11/22 1101 Calcium Carbonate (Tums Ultra) 400 Mg Tab.chew, 400-800 MG PO Q6H PRN for INDIGESTION, (Reported) Entered as Reported by: ZHOU WRIGHT on 07/21/20 1215 Cetirizine HCl (Zyrtec) 10 Mg Tablet, 10 MG PO DAILY PRN for ALLERGY SYMPTOMS, (Reported) Entered as Reported by: ZHOU WRIGHT on 07/21/20 1215 Cholecalciferol (Vitamin D3) (Vitamin D3) 1,250 Mcg Capsule, 1,250 MCG PO FRI, (Reported) Entered as Reported by: ZHOU WRIGHT on 01/08/21 1534 Cyclosporine (Restasis) 1 Each Droperette, 1 DROP OU BID, (Reported) Entered as Reported by: ZHOU WRIGHT on 07/21/20 1215 Docusate Sodium (Colace) 100 Mg Capsule, 100 MG PO DAILY Prescribed by: MARIA ELENA FISHER on 03/10/221999 Gabapentin (Neurontin) 300 Mg Capsule, 300 MG PO HS PRN for PAIN-BREAKTHROUGH, (Reported) Entered as Reported by: ZHOU WRIGHT on 01/08/21 1534 Hydrocodone Bit/Acetaminophen (HYDROcodone/APAP 5 MG/325 MG TAB) 1 Tab Tab, 1-2 TAB PO Q4H PRN for PAIN-MODERATE (5-7) Prescribed by: VALERIA GUILLERMO on 05/08/21 0644 Hydrocodone/Acetaminophen (Hydrocodone-Acetamin 5-325 mg) 5 Mg-325 Mg Tablet, 1 TAB PO Q4H PRN for PAIN-MODERATE (5-7) Prescribed by: JUAN POZO on 09/03/21 1549 Hydrocodone/Acetaminophen (Hydrocodone-Acetamin 5-325 mg) 5 Mg-325 Mg Tablet, 1 TAB PO Q4H PRN for PAIN-MODERATE (5-7) Prescribed by: JOEL VALENTE on 12/23/21 1544 Hydrocodone/Acetaminophen (Hydrocodone-Acetamin 5-325 mg) 5 Mg-325 Mg Tablet, 1 TAB PO Q6H PRN for PAIN-MODERATE (5-7) Prescribed by: RICHELLE MULTANI on 04/11/22 1102 Hydrocodone/Acetaminophen (Hydrocodone-Acetamin 5-325 mg) 5 Mg-325 Mg Tablet, 1 TAB PO Q4H PRN for PAIN-MODERATE (5-7) Prescribed by: JUAN POZO on 06/27/22 1916 Hydrocodone/Acetaminophen (Hydrocodone-Acetamin 5-325 mg) 5 Mg-325 Mg Tablet, 1 TAB PO Q4H PRN for PAIN-MODERATE (5-7) Prescribed by: JUAN POZO on 08/28/22 1624 Levofloxacin (Levofloxacin) 500 Mg Tablet, 500 MG PO DAILY Prescribed by: JOEL VALENTE on 12/23/21 1246 Lurasidone HCl (Latuda) 80 Mg Tablet, 80 MG PO 1800 W/MEAL, (Reported) Entered as Reported by: ZHOU WRIGHT on 09/04/20 1047 Metoprolol Succinate (Metoprolol Succinate) 50 Mg Tab.er.24h, 50 MG PO BID, (Reported) Entered as Reported by: ZHOU WRIGHT on 09/04/20 1047 Nitrofurantoin Monohyd/M-Cryst (Macrobid 100 mg Capsule) 100 Mg Capsule, 1 TAB PO BID Prescribed by: JUAN GONZALEZ on 07/05/22 2136 Ondansetron (Ondansetron Odt) 4 Mg Tab.rapdis, 4 MG SL Q8H PRN for NAUSEA/VOMITING Prescribed by: RICHELLE MULTANI on 04/11/22 1101 Ondansetron HCl (Ondansetron HCl) 8 Mg Tablet, 8 MG PO Q8H PRN for NAUSEA/VOMITING-1ST LINE, (Reported) Entered as Reported by: ZHOU WRIGHT on 07/21/20 1215 Oxycodone HCl/Acetaminophen (Percocet 5-325 mg Tablet) 1 Each Tablet, 1 TAB PO Q4H Prescribed by: MARIA ELENA FISHER on 03/10/222000 Oxycodone HCl/Acetaminophen (Percocet 5-325 mg Tablet) 5 Mg-325 Mg Tablet, 1 TAB PO Q6H PRN for PAIN-MODERATE Prescribed by: Judith Estrada on 06/09/22 181 Pantoprazole Sodium (Pantoprazole Sodium) 40 Mg Tablet.dr, 40 MG PO BID, (Reported) Entered as Reported by: ZHOU WRIGHT on 07/21/20 1215 Prednisone (Prednisone) 50 Mg Tab, 50 MG PO DAILY Prescribed by: EMELIA GARCIA MD on 03/01/22 0552 Sorbitol Solution (Sorbitol) 1 Ml Solution, 15-30 ML PO TID PRN for CONSTIPATION, (Reported) Entered as Reported by: ZHOU WRIGHT on 07/21/20 1215 Sucralfate (Sucralfate) 1 Gm Tablet, 1 GM PO QID PRN for ULCERS, (Reported) Entered as Reported by: ZHOU WRIGHT on 07/21/20 1215 Tizanidine HCl (Tizanidine HCl) 2 Mg Tablet, 2 MG PO BID PRN for MUSCLE SPASMS, (Reported) Entered as Reported by: ZHOU WRIGHT on 01/08/21 1534 Review of Systems Review of Systems Constitutional: no symptoms reported EENTM: No Symptoms Reported Respiratory: No Symptoms Reported Cardiovascular: See HPI Gastrointestinal: No Symptoms Reported Genitourinary: No Symptoms Reported Musculoskeletal: no symptoms reported Skin: no symptoms reported Psychiatric/Neurological: No Symptoms Reported Endocrine: No Symptoms Reported Hematologic/Lymphatic: No Symptoms Reported Past Dysypaf-Oviqhu-Mksbcz Hx Patient Social History Tobacco Use?: Yes Tobacco type used: Cigarettes Use of E-Cig and/or Vaping dev: No Substance use?: No Alcohol Use?: No Immunizations Up To Date Tetanus Booster (TDap): Less than 5yrs PED Vaccines UTD: Yes First/Initial COVID19 Vaccinat: July 2020 Second COVID19 Vaccination Gunner: August 2020 Third COVID19 Vaccination Date: MAR 13 2021 Seasonal Allergies Seasonal Allergies: No Past Medical History Surgery/Hospitalization HX: Sepsis/SVT/UTI- Hospitalization, BILATERAL MASTRCTOMY, RIB SPACERS D/T MASTECTOMY. 08/17/21 cleaned extenders in both breasts at . HYSTERECTOMY, R LEG FASCIOTOMY SURG, Power Port Surgeries: Yes (Loop Recorder, R PAC, BILAT MASTECTOMY 04/01/21; PORT) Breast, Cardiac, Hysterectomy, Oophorectomy, Orthopedic, 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, Vascular Surgery Respiratory: Yes Asthma Currently Using CPAP: No Currently Using BIPAP: No Cardiac: Yes (PFO, SVT;LOOP RECORDER) Congenital Heart Disease, Deep Vein Thrombosis, High Cholesterol, Palpitations, Valvular Heart Disease Neurological: Yes (CVA WITH RIGHG SIDE WEAKNESS 2013) Seizure Disorder, Stroke (Air embolism) : No 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 Disorders: Yes (MENORRHAGIA) Female 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 Disorders: Ovarian Cyst [employer] History: 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 Sexually Transmitted Disease: No HIV/AIDS: No Genitourinary: Yes Kidney Stones, UTI-Chronic Gastrointestinal: Yes Irritable Bowel Musculoskeletal: Yes (CHRONIC GENERALIZED PAIN ) Degenerate Disk Disease, Foot Drop, Scoliosis, Chronic Back Pain, Fractures Endocrine: No (STATES CHEMO HAS AFFECTED BLOOD SUGAR; OBESITY) Diabetes, Non-Insulin dep HEENT: No Loss of Vision: Bilateral Hearing Impairment: Denies Cancer: Yes Breast Did You Recieve Any Treatments: Yes What Type of Treatment Did You: Chemotherapy, Surgical Intervention Psychosocial: Yes (D.I.D.; MULTIPLE OVERDOSES/SUICIDE ATTEMPTS;POLYSUBSTANCE ABUSE) Anxiety, PTSD, Suicide Attempts, Bipolar Integumentary: No Herpes Blood Disorders: Yes (HX OF HYPERCOLAGUABLE STATE) Adverse Reaction/Blood Tranf: No (N/A) Family Medical History Antiphospholipid syndrome 19 MOTHER Diabetes mellitus 19 FATHER G8 BROTHER FH: aneurysm 19 FATHER FH: lupus 19 MOTHER FHx: congestive heart failure 19 FATHER FHx: renal failure 19 MOTHER Heart murmur 19 MOTHER Lupus anticoagulant disorder 19 MOTHER Patent foramen ovale 19 FATHER Barry syndrome G8 SISTER SOCIAL HISTORY: -SMOKES 1 PPD -ETOH--HX OF ABUSE/LONGTANDING ALCOHOLISM, NOW "OCCASIONALLY" DRINKS--VERY HEAVY AT TIMES -DRUGS--EXTENSIVE RX DRUG ABUSE, ESPECIALLY NARCOTICS/OPIATES WITH MULTIPLE OVERDOSES AND SUICIDE ATTEMPTS. SHE HAS A HISTORY OF EXTREME NON-COMPLIANCE IN ALL ASPECTS OF CARE. PAST SURGICAL HISTORY: -LOOP RECORDER -BILATERAL MASTECTOMY -PORT PLACEMENT -RIGHT LEG SURGERY PT HAS HISTORY OF PRIOR CVA WITH RIGHT SIDE WEAKNESS 2014 HX OF DVT'S AND P.F.O. WITH ATRIAL SHUNT--NO SURGERY FOR CARDIAC DEFECT Physical Exam Vital Signs Vital Signs - First Documented 01/10/23 20:30 Temp 37.2 Pulse 97 Resp 20 B/P (MAP) 128/94 (105) Pulse Ox 99 O2 Delivery Room Air Capillary Refill : Height, Weight, BMI Height: 5'4.00" Weight: 189lbs. 9.0oz. 85.725493fl; 37.00 BMI Method:Stated General Appearance: No Apparent Distress, WD/WN HEENT: PERRL/EOMI, Normal ENT Inspection Neck: Normal Inspection; No JVD Respiratory: Chest Non Tender, Lungs Clear, Normal Breath Sounds, No Accessory Muscle Use Cardiovascular: Regular Rate, Rhythm, No Murmur Gastrointestinal: Non Tender, Soft Extremity: Non Tender, Pedal Edema, Other (Scars from prior surgery) Neurologic/Psychiatric: Alert, Oriented x3, No Motor/Sensory Deficits, Normal Mood/Affect Skin: Normal Color, Warm/Dry Progress/Results/Core Measures Results/Orders Lab Results Laboratory Tests Test 01/10/23 20:34 01/11/23 00:07 Range/Units White Blood Count 11.2 H 4.3-11.0 10^3/uL Red Blood Count 4.18 3.80-5.11 10^6/uL Hemoglobin 11.6 11.5-16.0 g/dL Hematocrit 36 35-52 % Mean Corpuscular Volume 87 80-99 fL Mean Corpuscular Hemoglobin 28 25-34 pg Mean Corpuscular Hemoglobin Concent 32 32-36 g/dL Red Cell Distribution Width 15.6 H 10.0-14.5 % Platelet Count 423 H 130-400 10^3/uL Mean Platelet Volume 9.7 9.0-12.2 fL Immature Granulocyte % (Auto) 0 % Neutrophils (%) (Auto) 48 42-75 % Lymphocytes (%) (Auto) 44 12-44 % Monocytes (%) (Auto) 7 0-12 % Eosinophils (%) (Auto) 0 0-10 % Basophils (%) (Auto) 0 0-10 % Neutrophils # (Auto) 5.4 1.8-7.8 10^3/uL Lymphocytes # (Auto) 4.9 H 1.0-4.0 10^3/uL Monocytes # (Auto) 0.8 0.0-1.0 10^3/uL Eosinophils # (Auto) 0.0 0.0-0.3 10^3/uL Basophils # (Auto) 0.1 0.0-0.1 10^3/uL Immature Granulocyte # (Auto) 0.0 0.0-0.1 10^3/uL Prothrombin Time 13.8 12.2-14.7 SEC INR Comment 1.0 0.8-1.4 Activated Partial Thromboplast Time 36 H 24-35 SEC D-Dimer 0.31 0.00-0.49 UG/ML Sodium Level 142 135-145 MMOL/L Potassium Level 3.8 3.6-5.0 MMOL/L Chloride Level 109 H 98-107 MMOL/L Carbon Dioxide Level 22 21-32 MMOL/L Anion Gap 11 5-14 MMOL/L Blood Urea Nitrogen 9 7-18 MG/DL Creatinine 0.75 0.60-1.30 MG/DL Estimat Glomerular Filtration Rate 105 BUN/Creatinine Ratio 12 Glucose Level 106 H 70-105 MG/DL Calcium Level 9.4 8.5-10.1 MG/DL Corrected Calcium 9.3 8.5-10.1 MG/DL Magnesium Level 2.1 1.6-2.4 MG/DL Total Bilirubin 0.3 0.1-1.0 MG/DL Aspartate Amino Transf (AST/SGOT) 12 5-34 U/L Alanine Aminotransferase (ALT/SGPT) 11 0-55 U/L Alkaline Phosphatase 62 40-136 U/L Myoglobin 33.9 10.0-92.0 NG/ML Troponin I < 0.028 < 0.028 <0.028 NG/ML Total Protein 7.3 6.4-8.2 GM/DL Albumin 4.1 3.2-4.5 GM/DL My Orders Orders - MARIA ELENA MORA MD Ekg Tracing (01/10/23 20:34) Cbc And Automated Diff (01/10/23 20:46) Magnesium (01/10/23 20:46) Chest 1 View, Ap/Pa Only (01/10/23 20:46) Comprehensive Metabolic Panel (01/10/23 20:46) Myoglobin Serum (01/10/23 20:46) Protime With Inr (01/10/23 20:46) Partial Thromboplastin Time (01/10/23 20:46) O2 (01/10/23 20:46) Monitor-Rhythm Ecg Trace Only (01/10/23 20:46) Ed Iv/Invasive Line Start (01/10/23 20:46) Troponin I Anupam (01/10/23 20:46) Fibrin Degradation Products (01/10/23 20:59) Troponin I Anupam (01/11/23 00:05) Ketorolac Injection (Ketorolac Injection (01/10/23 22:00) Ekg Tracing (01/10/23 21:49) Medications Given in ED Vital Signs/I&O 01/10/23 01/11/23 20:30 01:10 Temp 37.2 36.9 Pulse 97 88 Resp 20 31 B/P (MAP) 128/94 (105) 115/76 Pulse Ox 99 96 O2 Delivery Room Air Room Air Blood Pressure Mean: 105 Progress Progress Note : Progress Note Patient was interviewed and examined upon arrival. Report was received from EMS. Chest pain work-up was pursued. EKGs demonstrated no ischemic changes or arrhythmia as noted below. Labs were interpreted in their entirety by me. CBC, CMP, magnesium, serial troponins, and coagulation panel including INR showed no clinically relevant abnormalities. Chest x-ray revealed no acute abnormalities per radiologist's report noted below. Toradol was administered for treatment of her pain which did resolve the pain. Given resolution of pain, negative serial troponin values, and negative stress test in 2020, chest pain is unlikely to be related to coronary artery disease. PE was effectively ruled out with D-dimer. See discharge instructions for further discussion. EKG #1: EKG Time: 20:36 Rate: 92 Rhythm: Normal Sinus Comment Sinus rhythm with no ST elevation or depression. Slightly prolonged QRS of 114 ms. No other abnormal intervals or axis deviation. EKG #2: EKG Time: 21:44 Rate: 82 Rhythm: Normal Sinus Comment Normal sinus rhythm with no ST elevation or depression. Slightly prolonged QRS of 114 ms. No other abnormal intervals or axis deviation. No change from prior. Diagnostic Imaging Diagonstic Imaging: Xray Plain Films/CT/US/NM/MRI: chest Comments NAME: COLTON ORTIZ [facility] REC#: [id number] PT STATUS: REG ER : 1985 PHYSICIAN: MARIA ELENA MORA MD ADMIT DATE: 01/10/23/ER Signed Date of Exam:01/10/23 CHEST 1 VIEW, AP/PA ONLY CHEST 1 VIEW, AP/PA ONLY Indication: Chest pain. Comparison: 11/07/2022 Findings: No focal airspace disease in the visualized lungs. No pleural effusion or pneumothorax. Normal cardiomediastinal silhouette. Bilateral mastectomies with numerous surgical clips present. Right IJ Port-A-Cath is noted. Impression: 1. No acute cardiopulmonary process by portable radiography. Dictated by: Dictated on workstation # [id number] Dict: 01/10/232113 Trans: 01/10/232113 [facility] [id number] Interpreted by: HARSHAD KIRKLAND MD Electronically signed by: HARSHAD KIRKLAND MD 01/10/232113 Departure Impression Primary Impression: Atypical chest pain Disposition: 01 HOME, SELF-CARE Condition: Improved Departure-Patient Inst. Decision time for Depature: 01:08 Referrals: [facility] (PCP/Family) Primary Care Physician Patient Instructions: Chest Pain That Is Not Caused by the Heart (DC) Add. Discharge Instructions: You may take Tylenol (acetaminophen) up to 1000 mg every 6 hours as needed and/or ibuprofen up to 600 mg every 6 hours as needed for pain. Follow-up with your primary care doctor and resistor testing machine operator as soon as possible. Please call later today for appointments. Return to the emergency room if you have worsening symptoms despite following these instructions or if you have recurrent episodes of pain that are not improved with Tylenol or ibuprofen. All discharge instructions reviewed with patient and/or family. Voiced understanding. Copy Copies To 1: BONI PRINGLE MD [facility] Copies To 2: ZHOU LUO JOSHUA T MD Jan 10, 2023 20:58
[2023-01-10 21:03] LABS: ALANINE AMINOTRANSFERASE 11 U/L (0-55); ALBUMIN 4.1 GM/DL (3.2-4.5); ALKALINE PHOSPHATASE 62 U/L (40-136); BILIRUBIN,TOTAL 0.3 MG/DL (0.1-1.0); BUN/CREATININE RATIO 12; CALCIUM 9.4 MG/DL (8.5-10.1); CARBON DIOXIDE 22 MMOL/L (21-32); CHLORIDE 109 MMOL/L (98-107); CREATININE SERUM 0.75 MG/DL (0.60-1.30); GFR ESTIMATED 105; GLUCOSE 106 MG/DL (70-105); MAGNESIUM 2.1 MG/DL (1.6-2.4); POTASSIUM 3.8 MMOL/L (3.6-5.0); SODIUM 142 MMOL/L (135-145); TOTAL PROTEIN 7.3 GM/DL (6.4-8.2)
[2023-01-10 21:04] LABS: PROTHROMBIN TIME PATIENT 13.8 SEC (12.2-14.7)
--- NOTE | 2023-01-10 21:16 | Diagnostic Imaging Report ---
CHEST 1 VIEW, AP/PA ONLY Indication: Chest pain. Comparison: 11/07/2022 Findings: No focal airspace disease in the visualized lungs. No pleural effusion or pneumothorax. Normal cardiomediastinal silhouette. Bilateral mastectomies with numerous surgical clips present. Right IJ Port-A-Cath is noted. Impression: 1. No acute cardiopulmonary process by portable radiography. Dictated by: Dictated on workstation # [id number]
[2023-01-10] MEDS ORDERED: KETOROLAC INJ 30 MG/ML VIAL IVP ONE (22:00)
[2023-01-11 01:10] VITALS: BP 115/76
== END 2023-01-11 01:14 | disposition home or self-care (01) ==
LOC: ER 20:27 → EDUNIT# 20:27 → ER 01-11 01:14
DX: R07.89 Other chest pain (principal); F17.210 Nicotine dependence, cigarettes, uncomplicated; Z91.040 Latex allergy status
CPT/HCPCS: 36415; 71045; 80053; 83735; 83874; 84484; 85025; 85379; 85610; 85730; 93005; 93041